=== PATIENT | female | born 1960 | race Caucasian/White ===

== ENCOUNTER → 2017-11-21 15:57 | Outpatient (REF) | payer MEDICARE, MEDICAID, SELFPAY ==
[2017-11-21 20:30] LABS: HCT 37.6 % (36.0-46.0); HGB 12.4 g/dL (12.0-15.5)
[2017-11-21 20:40] LABS: Anion Gap 9.4 mmol/L (3-11); BUN 25 mg/dL (7-18); CO2 25.6 mmol/L (21.0-32.0); CREATININE 1.81 mg/dL (0.55-1.02); Calcium 8.7 mg/dL (8.5-10.1); Chloride 103 mmol/L (98-107); Estimated GFR 28.62 (mL/min/1.73m2); Glucose 207 mg/dL (70-100); Magnesium 1.8 mg/dL (1.8-2.4); Potassium 4.6 mmol/L (3.5-5.1); Sodium 138 mmol/L (136-145); TSH (W/Ref FT4) 1.07 uIU/mL (0.358-3.74)
== END ==
LOC: NCHCN 15:57
PROVIDERS: PCP Family Medicine; Visit Provider Family Medicine
DX: N18.9 Chronic kidney disease, unspecified (principal); E03.9 Hypothyroidism, unspecified; R42 Dizziness and giddiness
CPT/HCPCS: 80048; 83735; 84443; 85014; 85018

== ENCOUNTER 2018-03-15 15:25 | Outpatient (CLI) | payer MEDICARE, MEDICAID, SELFPAY ==
[2018-03-15 17:00] LABS: CREATININE 1.71 mg/dL (0.55-1.02); Estimated GFR 30.56 (mL/min/1.73m2)
== END 2018-03-15 15:45 ==
PROVIDERS: PCP Family Medicine; Visit Provider Surgery
DX: I73.9 Peripheral vascular disease, unspecified (principal)
CPT/HCPCS: 36415; 82565

== ENCOUNTER 2018-10-10 10:24 | Outpatient (REF) | payer MEDICARE, MEDICAID, SELFPAY ==
[2018-10-10 11:20] LABS: ALT 10 U/L (12-78); AST 11 U/L (15-37); Albumin 3.6 g/dL (3.4-5.0); Alkaline Phosphatase 102 U/L (46-116); Anion Gap 8.5 mmol/L (3-11); BUN 26 mg/dL (7-18); Bilirubin, Total 0.6 mg/dL (0.2-1.0); CO2 24.5 mmol/L (21.0-32.0); CREATININE 1.83 mg/dL (0.55-1.02); Calcium 9.2 mg/dL (8.5-10.1); Chloride 108 mmol/L (98-107); Estimated GFR 28.26 (mL/min/1.73m2); Glucose 90 mg/dL (70-100); Sodium 141 mmol/L (136-145); TSH (W/Ref FT4) 15.28 uIU/mL (0.358-3.74)
[2018-10-10 11:40] LABS: FREE T4 0.77 ng/dL (0.76-1.46)
[2018-10-12 11:32] LABS: C-Peptide <0.1 ng/mL (1.1 - 4.4)
== END 2018-10-10 10:44 ==
LOC: NCHCN 10:24
PROVIDERS: PCP Family Medicine; Visit Provider Family Medicine
DX: E03.9 Hypothyroidism, unspecified (principal); E10.319 Type 1 diabetes mellitus with unspecified diabetic retinopathy without macular edema
CPT/HCPCS: 80053; 84439; 84443; 84681

== ENCOUNTER 2019-01-25 14:56 | Outpatient (CLI) | payer MEDICARE, MEDICAID, SELFPAY ==
[2019-01-25 15:37] LABS: Bilirubin Negative (Negative); Blood Negative (Negative); Clarity Clear (Clear); Glucose Negative (Negative); HCT 37.4 % (36.0-46.0); HGB 11.8 g/dL (12.0-15.5); Ketones Negative (Negative); Leukocyte Esterase Negative (Negative); Mean Corp. HGB Concentration 31.6 g/dL (32.0-36.0); Mean Corpuscular Hemoglobin 29.6 pg (27.0-33.0); Mean Corpuscular Volume 93.7 fL (80-95); Mean Platelet Volume 9.9 fL (8.0-11.0); Nitrite Negative (Negative); Platelet Count 289 x1000/uL (130-400); RBC 3.99 m/cumm (4.00-5.20); RBC Distribution Width 13.8 % (11.7-14.6); Specific Gravity 1.015 (1.005-1.025); Urobilinogen 0.2 EU/dL (Up TO 0.2); White Blood Cell Count 5.95 k/cumm (4.4-10.8)
[2019-01-25 15:46] LABS: WBC 0-2 HPF (0-5)
[2019-01-25 15:47] LABS: Bacteria Rare HPF (Negative); C & S Indicated? No; Casts Negative LPF (Negative); Crystals Negative HPF (Negative); Epithelial Cells Rare HPF (Negative); Mucus Trace (Negative); Other Cells Negative (Negative); RBC Negative (0-2)
[2019-01-25 15:50] LABS: INR 1.3 (0.9-1.1); PTT Activated 41.6 sec (21.0-31.4); Prothrombin Time 12.8 sec (9.3-11.0)
[2019-01-25 16:33] LABS: Anion Gap 8.8 mmol/L (3-11); BUN 29 mg/dL (7-18); CO2 26.2 mmol/L (21.0-32.0); CREATININE 1.88 mg/dL (0.55-1.02); Calcium 8.7 mg/dL (8.5-10.1); Chloride 104 mmol/L (98-107); FREE T4 1.05 ng/dL (0.76-1.46); Glucose 252 mg/dL (70-100); Potassium 4.8 mmol/L (3.5-5.1); Sodium 139 mmol/L (136-145); TSH 5.85 uIU/mL (0.36-3.74)
[2019-01-28 10:41] LABS: Prealbumin 23 mg/dL (20-40)
== END 2019-01-25 15:16 ==
PROVIDERS: PCP Family Medicine; Visit Provider Surgery
DX: I73.9 Peripheral vascular disease, unspecified (principal); I99.8 Other disorder of circulatory system; Z01.818 Encounter for other preprocedural examination; E03.9 Hypothyroidism, unspecified
CPT/HCPCS: 36415; 80048; 85027; 81003; 81015; 84134; 84439; 84443; 85610; 85730

== ENCOUNTER 2019-05-23 02:16 | Outpatient (CLI) | payer MEDICARE, MEDICAID, SELFPAY ==
--- NOTE | 2019-05-23 | DI.MAMMO_ITS ---
EXAM: MG MAMMO SCREENING CLINICAL HISTORY: SCREENING, Z12.39. TECHNIQUE: Bilateral full field digital CC and MLO mammographic images were obtained with 3D tomosyn thesis and utilizing computer aided detection (CAD). COMPARISON: Available for comparison. FINDINGS: Masses/Architectural Distortion: None seen. There is a stable notched nodule in the axillary tail reg ion of the right breast likely reflecting a lymph node. Microcalcifications: No suspicious pleomorphic-type are seen. Skin Thickening/Nipple Retraction: None. IMPRESSION: 1. No significant interval change with no specific features of malignancy noted. 2. Unless there is more urgent need, screening mammography is recommended, as per [employer] guidelines. ACR BI-RAD Category- 1 Negative Breast Density - Category B - Scattered areas of fibroglandular density A negative radiographic report should not delay biopsy if a dominant or clinically suspicious mass is present. Up to ten percent of cancers are not identified on mammography. A negative report may reinforce clinical impression. Adenosis and dense breasts may obscure an underlying neoplasm. False positive reports average 6 to 10%. Patient will receive a letter notifying them of these results.
== END 2019-05-23 02:36 ==
PROVIDERS: PCP Family Medicine; Visit Provider Family Medicine
DX: Z12.31 Encounter for screening mammogram for malignant neoplasm of breast (principal); R59.0 Localized enlarged lymph nodes
CPT/HCPCS: 77063; 77067

== ENCOUNTER 2019-06-13 21:49 | Outpatient (REF) | payer MEDICARE, OTHER, MEDICAID, SELFPAY | END 2019-06-13 22:09 | LOC: NCHCN 21:49 | PROVIDERS: PCP Family Medicine; Visit Provider Family Medicine | DX: L72.3 Sebaceous cyst (principal) | CPT/HCPCS: 87077; 87070; 87186; 87205 ==

== ENCOUNTER 2019-06-22 15:26 | Emergency (ER) | payer MEDICARE, OTHER, MEDICAID, SELFPAY ==
[2019-06-22 15:30] VITALS: BP 154/66; PULSE 61; RESP 18; TEMP 36.6; O2SAT 97
--- NOTE | 2019-06-22 15:49 | W.ED.GENAD ---
Discharge Plan Disposition Patient Disposition: HOME Condition: Improving Discharge Details Chief Complaint: Nk/Back Pain Clinical Impression: Pain of left sacroiliac joint Primary Care Provider: Shirley Yu V ED Provider: Paulino Hall Home Meds and New Rx's Prescriptions: New prednisone 20 mg tablet 40 mg PO DAILY 5 Days Qty: 10 RF: 0 Continued cilostazol 100 MG tablet 100 mg PO DAILY RF: 0 carvedilol 3.125 MG tablet 3.125 mg PO BID RF: 0 amlodipine 10 MG tablet 10 mg PO DAILY RF: 0 magnesium oxide 250 MG tablet 250 mg PO DAILY RF: 0 cholecalciferol (vitamin D3) [Vitamin D3] 1,000 UNIT capsule 1,000 unit PO DAILY RF: 0 humalog pump 31/10 RF: 0 losartan 50 MG tablet 50 mg PO DAILY RF: 0 aspirin 81 MG tablet,delayed release (DR/EC) 81 mg PO DAILY RF: 0 simvastatin 40 MG tablet 40 mg PO DAILY RF: 0 levothyroxine [Levoxyl] 100 MCG tablet 125 mcg PO DAILY RF: 0 citalopram 20 MG tablet 20 mg PO HS RF: 0 insulin lispro [Humalog KwikPen Insulin] 100 UNIT/1 ML insulin pen 27 unit SQ DAILY RF: 0 Pradaxa 150 MG capsule 150 mg PO BID RF: 0 Discharge Instructions Instructions: Sciatica (ED) Additional Instructions: Please follow-up with physical therapy as prescribed. Take prednisone as prescribed. You may continue the use of Tylenol and/or ibuprofen as needed for pain. May apply ice to area to reduce discomfort. Remove Lidoderm patch in 12 hours. Additional patches are available [id number]. Return if you develop motor weakness of the lower extremity, numbness, change to urination, or any other acute concern. Medical Decision Making 58-year-old female presents from home with 2 days of left low back pain. Her vital signs are unremarkable. She is tender overlying the left SI joint as well as sciatic notch. Consistent with SI joint strain versus sciatica. Will treat with a burst of prednisone, referral for physical therapy, and as well she was given IM ketorolac x1 as well as a Lidoderm patch today. Discussed with her anticipated course of resolution as well as plan for outpatient management. She is stable and appropriate to discharge to home at this time. HPI General Mode of arrival: ambulatory. Date/Time Provider Initiated Documentation: 06/22/19 15:29. Limitations to Documentation: no limitations. Information obtained by: patient. History of Present Illness 58 year old F presents to the emergency department with the chief complaint of 58-year-old female presents with left low back pain for 2 days, described as moderate, and is localized to the buttocks, left and lower extremity. Patient extremity. Patient started experiencing this day(s) and it has been constant. Rest improves symptom(s), Movement worsens symptoms . Patient notes denies weakness. Patient did receive the following treatments prior to arrival, none Related Data Home Medications Medication Instructions Recorded Confirmed Pradaxa 150 mg PO BID 08/13/12 06/22/19 aspirin 81 mg PO DAILY 08/13/12 06/22/19 citalopram 20 mg PO HS 08/13/12 06/22/19 insulin lispro [Humalog KwikPen 27 unit SQ DAILY 08/13/12 06/22/19 Insulin] levothyroxine [Levoxyl] 125 mcg PO DAILY 08/13/12 06/22/19 losartan 50 mg PO DAILY 08/13/12 06/22/19 simvastatin 40 mg PO DAILY 08/13/12 06/22/19 Humalog Pump 24/7 01/07/16 amlodipine 10 mg PO DAILY tab-cap 01/07/16 06/22/19 carvedilol 3.125 mg PO BID tab-cap 01/07/16 06/22/19 cholecalciferol (vitamin D3) 1,000 unit PO DAILY 01/07/16 06/22/19 [Vitamin D3] cilostazol 100 mg PO DAILY 01/07/16 06/22/19 magnesium oxide 250 mg PO DAILY 01/07/16 06/22/19 prednisone 40 mg PO DAILY 5 Days #10 tab 06/22/19 Previous Rx's Medication Instructions Recorded prednisone 40 mg PO DAILY 5 Days #10 tab 06/22/19 Allergies Allergy/AdvReac Type Severity Reaction Status Date / Time Sulfa (Sulfonamide Allergy Severe RENAL Unverified 06/22/19 15:36 Antibiotics) FAILURE Penicillins Allergy Unknown Unverified 06/22/19 15:36 sulfamethoxazole Allergy Unverified 06/22/19 15:36 [From Bactrim] trimethoprim [From Bactrim] Allergy Unverified 06/22/19 15:36 General Stated Complaint: Nk/Back Pain DAVID: 4 Review of Systems Narrative: No numbness or tingling, no change to urination, no weakness. No fall or injury. [facility] Medical History Benign hypertension Chronic renal insufficiency Diabetes mellitus type 1 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 Hx of malignant melanoma Hyperlipidemia Hypothyroidism Posterior cerebral circulation hemorrhagic infarction Surgical History (Updated 01/24/18 @ 14:34 by [employer] [place]) Abdominal hysterectomy (~2001) Carotid endarterectomy bilateral. excision of melanoma on arm. Oophrectomy, Both Stent placement LE for intermittent claudication Trigger Finger release (03/29/11) LEFT THUMB Social History Smoking/Tobacco Use Status: Former Tobacco Use Drug use: Never Do you feel safe at home: Yes Exam Narrative Exam Narrative: GEN: awake, alert, oriented 3. Pleasant, well groomed, interactive. HEAD: Normocephalic, atraumatic ENT: Mucous membranes moist, oropharynx unremarkable, External ear exam unremarkable EYES: PERRL, EOMI NECK: Full ROM, no NEREYDA, no menigismus CHEST/RESP: Nontender, clear to auscultation bilateral, no wheeze/rhonchi/rales CARDIOVASCULAR: RRR, no murmur, rub miles. 2+ Rad pulse bilateral ABDOMEN: Soft, nontender, no mass. +Bowel sounds EXT: Full ROM, no edema, no rash. Motor is 5 out of 5 throughout, sensation intact throughout including saddle distribution. Back: Tender at left SI joint and slightly so at left sciatic notch. Neuro: Grossly normal neurologic exam, conversant, interactive. Psych: Speech fluent, thoughts congruent, affect normal Course Vital Signs Vital signs: Vital Signs Temperature 36.6 C 06/22/19 15:30 Pulse 61 06/22/19 15:30 Respiratory Rate 18 06/22/19 15:30 Blood Pressure 154/66 H 06/22/19 15:30 Pulse Oximetry 97 06/22/19 15:30 Temperature 36.6 C 06/22/19 15:30 Temperature Source Skin 06/22/19 15:30 Pulse 61 06/22/19 15:30 Respiratory Rate 18 06/22/19 15:30 Respiratory Effort Non-Labored 06/22/19 15:33 Blood Pressure 154/66 H 03/14/20 15:30 Blood Pressure Position Sitting 06/22/19 15:30 Pulse Oximetry 97 06/22/19 15:30 Oxygen Delivery Method Room Air 06/22/19 15:30 Oxygen Flow Rate 0 06/22/19 15:30 Pain Level 10 06/22/19 15:33
[2019-06-22] MEDS: Ketorolac 15 MG/ML VIAL IM (16:04)
[2019-06-22] MEDS: predniSONE 40 MG, predniSONE 10 MG 50 MG PO (16:05)
[2019-06-22] MEDS: Lidocaine 5% Patch 1 PATCH TP (16:05)
== END 2019-06-22 16:12 | disposition home or self-care (01) ==
PROVIDERS: Emergency Provider Emergency Medicine; PCP Family Medicine
DX: M54.32 Sciatica, left side (principal); I12.9 Hypertensive chronic kidney disease with stage 1 through stage 4 chronic kidney disease, or unspecified chronic kidney disease; N18.9 Chronic kidney disease, unspecified; E10.22 Type 1 diabetes mellitus with diabetic chronic kidney disease
CPT/HCPCS: 96372; 99284; 99283; J1885; J7512

== ENCOUNTER 2019-06-25 14:29 | Outpatient (CLI) | payer MEDICARE, OTHER, MEDICAID, SELFPAY ==
--- NOTE | 2019-06-25 14:47 | DI.RAD_ITS ---
EXAM: XR LUMBAR SPINE COMPLETE CLINICAL HISTORY: BACK PAIN, LUMBAR W/ RADICULOPATHY M54.16. TECHNIQUE: 2D digital imaging was performed. COMPARISON: No exams were available for comparison FINDINGS: BONES: No fracture or destructive lesion. Vertebral bodies are unremarkable. Mild degenerative change s of the facets at L5-S1 are noted. DISKS: Intervertebral disc spaces are maintained. Small endplate osteophytes are seen at multiple lev els of the lumbar spine. ALIGNMENT: Lumbar spinal alignment is within normal limits. No spondylolysis or spondylolisthesis is seen. SOFT TISSUE: Atherosclerosis is present. There is a stent in the left common iliac artery. IMPRESSION: Mild degenerative changes in the lumbar spine. DATA REPOSITORY: RADIATION DOSE DELIVERED:
--- NOTE | 2019-06-25 14:47 | DI.RAD_ITS ---
EXAM: XR HIP LT COMPLETE AND AP PELVIS CLINICAL HISTORY: BACK PAIN M54.16. TECHNIQUE: 2D digital imaging was performed. COMPARISON: No exams were available for comparison FINDINGS: BONES: No acute fracture is present. No bony destructive lesion is seen. JOINTS: No dislocation present. No significant degenerative changes. SOFT TISSUE: A left common iliac stent is present. The proximal end of a vascular stent in the right groin is noted. Atherosclerosis. IMPRESSION: Unremarkable radiographs of the left hip. Unremarkable radiographs of the pelvis DATA REPOSITORY: RADIATION DOSE DELIVERED:
--- NOTE | 2019-06-25 14:48 | DI.RAD_ITS ---
EXAM: XR THORACIC SPINE COMPLETE CLINICAL HISTORY: BACK PAIN. TECHNIQUE: 2D digital imaging was performed. COMPARISON: No exams were available for comparison FINDINGS: BONES: There is no fracture or destructive lesion. The vertebral bodies and posterior elements are un remarkable. DISKS:There is a mild right convex scoliosis of the thoracic spine. Disc space narrowing and endplat e osteophytes are seen at several levels of the thoracic spine. SOFT TISSUE: Visualized lungs are clear. IMPRESSION: Degenerative changes in the thoracic spine. DATA REPOSITORY: RADIATION DOSE DELIVERED:
== END 2019-06-25 14:49 ==
PROVIDERS: PCP Family Medicine; Visit Provider Family Medicine
DX: M54.6 Pain in thoracic spine (principal); M47.814 Spondylosis without myelopathy or radiculopathy, thoracic region; M54.16 Radiculopathy, lumbar region; M47.817 Spondylosis without myelopathy or radiculopathy, lumbosacral region; M25.552 Pain in left hip; Z95.820 Peripheral vascular angioplasty status with implants and grafts
CPT/HCPCS: 72072; 72110; 73502

== ENCOUNTER 2019-06-25 14:31 | Outpatient (REF) | payer MEDICARE, OTHER, MEDICAID, SELFPAY ==
[2019-06-25 19:25] LABS: HCT 38.8 % (36.0-46.0); HGB 12.4 g/dL (12.0-15.5); Mean Corpuscular Hemoglobin 28.2 pg (27.0-33.0); Mean Corpuscular Volume 88.4 fL (80-95); Mean Platelet Volume 11.2 fL (8.0-11.0); Platelet Count 273 x1000/uL (130-400); RBC 4.39 m/cumm (4.00-5.20); RBC Distribution Width 14.2 % (11.7-14.6); White Blood Cell Count 9.08 k/cumm (4.4-10.8)
[2019-06-25 20:08] LABS: ALT 13 U/L (14-59); AST 13 U/L (15-37); Albumin 3.4 g/dL (3.4-5.0); Alkaline Phosphatase 100 U/L (46-116); Anion Gap 9.1 mmol/L (3-11); BUN 31 mg/dL (7-18); Bilirubin, Total 0.5 mg/dL (0.2-1.0); C-Reactive Protein 0.16 mg/dL (0.0-0.3); CO2 27.9 mmol/L (21.0-32.0); CREATININE 1.67 mg/dL (0.55-1.02); Calcium 8.5 mg/dL (8.5-10.1); Chloride 106 mmol/L (98-107); Estimated GFR 31.29 (mL/min/1.73m2); Glucose 184 mg/dL (74-106); Potassium 4.4 mmol/L (3.5-5.1); Sodium 143 mmol/L (136-145); TSH (W/Ref FT4) 13.28 uIU/mL (0.36-3.74); Total Protein 6.9 g/dL (6.4-8.2)
[2019-06-25 20:20] LABS: ESR 25 mm/hr (0-30)
[2019-06-25 20:33] LABS: FREE T4 0.78 ng/dL (0.76-1.46)
== END 2019-06-25 14:51 ==
LOC: NCHCN 14:31
PROVIDERS: PCP Family Medicine; Visit Provider Family Medicine
DX: E03.9 Hypothyroidism, unspecified (principal); E10.319 Type 1 diabetes mellitus with unspecified diabetic retinopathy without macular edema; N18.9 Chronic kidney disease, unspecified; M54.16 Radiculopathy, lumbar region; D64.9 Anemia, unspecified; M25.552 Pain in left hip
CPT/HCPCS: 80053; 85027; 85652; 84439; 84443; 86140

== ENCOUNTER 2019-07-05 03:36 | Outpatient (CLI) | payer MEDICARE, OTHER, MEDICAID, SELFPAY ==
--- NOTE | 2019-07-05 08:55 | DI.MRI_ITS ---
EXAM: MR LUMBAR SPINE WO CLINICAL HISTORY: BACK PAIN, LUMBAR WITH RADICULOPATHY, M54.16. TECHNIQUE: Multiplanar multisequence MRI of the Lumbar spine was performed. COMPARISON: No exams were available for comparison FINDINGS: Bones: The last intervertebral disc space is designated the L5/S1 level for the numbering purpose of this examination. The vertebral body heights are well maintained. Alignment is satisfactory. The si gnal characteristics are unremarkable. Cord: The conus tip ends at the L1 level. It is of normal size and signal intensity. T12-L1: No disc herniations or bulges are present. No significant central spinal canal or neural for aminal stenosis is present. L1-2: No disc herniations or bulges are present. No significant central spinal canal or neural fora homer stenosis is present. L2-3: No disc herniations or bulges are present. No significant central spinal canal or neural forami nal stenosis is present. L3-4: There is a diffuse disc bulge. There also appears to be a herniation into the left neural for amen which is large. There is marked compression of the exiting L3 nerve root. There are degenerati ve changes of the facets. These all contribute to cause mild narrowing of the central spinal canal. No significant right neural foraminal stenosis is present. L4-5: There is an eccentric disc herniation to the left with extension into the left neural foramen. It causes left lateral recess stenosis compressing the left L5 nerve root. There are degenerative changes of the facet joints. There is hfhj-fj-vchuwqyo narrowing of the central spinal canal. There is [id number] narrowing of the left neural foramen. No significant right neural foraminal coral nosis is present. L5-S1: No disc herniations or bulges are present. No central spinal canal or neural foraminal stenos is is present. Soft tissues: The visualized SI joints and sacrum are well maintained. The paraspinal soft tissues ar e unremarkable. IMPRESSION: 1. Large focal lesion in the left neural foramen at L 3 4 which is isointense to the disc material. There is marked compression of the exiting L3 nerve root. This appears to represent a disc herniatio n. Other epidural masses cannot be entirely excluded. If further imaging is warranted, a postcontra st MRI examination may be obtained. 2. At L4-L5, eccentric disc herniation to the left with extension into the left neural foramen is not ed. It causes left lateral recess stenosis compressing the left L5 nerve root. 3. Multilevel degenerative changes in the lumbar spine causing central spinal canal and neural forami nal stenosis as described above. DATA REPOSITORY:
== END 2019-07-05 03:56 ==
PROVIDERS: PCP Family Medicine; Visit Provider Family Medicine
DX: M54.16 Radiculopathy, lumbar region (principal); M51.16 Intervertebral disc disorders with radiculopathy, lumbar region
CPT/HCPCS: 72148

== ENCOUNTER 2019-07-15 14:32 | Outpatient (REF) | payer MEDICARE, OTHER, MEDICAID, SELFPAY ==
[2019-07-15 20:04] LABS: Anion Gap 8.4 mmol/L (3-11); BUN 34 mg/dL (7-18); CO2 24.6 mmol/L (21.0-32.0); CREATININE 1.79 mg/dL (0.55-1.02); Calcium 8.6 mg/dL (8.5-10.1); Chloride 108 mmol/L (98-107); Estimated GFR 28.89 (mL/min/1.73m2); Glucose 177 mg/dL (74-106); Potassium 5.1 mmol/L (3.5-5.1); Sodium 141 mmol/L (136-145)
== END 2019-07-15 14:52 ==
LOC: NCHCN 14:32
PROVIDERS: PCP Family Medicine; Visit Provider Family Medicine
DX: N18.9 Chronic kidney disease, unspecified (principal)
CPT/HCPCS: 80048

== ENCOUNTER 2019-09-05 11:14 | Outpatient (CLI) | payer MEDICARE, OTHER, MEDICAID, SELFPAY ==
[2019-09-05 15:24] LABS: COMMENT (LAB VIEW ONLY) 133.49 mg/dL
[2019-09-05 15:33] LABS: Albumin 3.5 g/dL (3.4-5.0); Anion Gap 8.5 mmol/L (3-11); BUN 27 mg/dL (7-18); CO2 24.5 mmol/L (21.0-32.0); CREATININE 1.92 mg/dL (0.55-1.02); Calcium 8.6 mg/dL (8.5-10.1); Chloride 104 mmol/L (98-107); Estimated GFR 26.64 (mL/min/1.73m2); Glucose 243 mg/dL (74-106); PHOSPHORUS 4.9 mg/dL (2.6-4.7); Sodium 137 mmol/L (136-145); Uric Acid 6.1 mg/dL (2.6-6.0)
[2019-09-05 15:41] LABS: Vitamin D 25 Total 16.8 ng/ml (30-100)
[2019-09-06 12:38] LABS: Parathyroid Hormone,Intact 134 pg/mL (19-88)
== END 2019-09-05 11:34 ==
PROVIDERS: PCP Family Medicine; Visit Provider Internal Medicine
DX: N18.3 Chronic kidney disease, stage 3 (moderate) (principal)
CPT/HCPCS: 80048; 82306; 82040; 82043; 82570; 83970; 84100; 84550

== ENCOUNTER 2019-10-14 11:21 | Outpatient (REF) | payer MEDICARE, OTHER, MEDICAID, SELFPAY ==
[2019-10-14 19:35] LABS: HCT 33.2 % (36.0-46.0); HGB 10.2 g/dL (12.0-15.5); Mean Corp. HGB Concentration 30.7 g/dL (32.0-36.0); Mean Corpuscular Hemoglobin 27.2 pg (27.0-33.0); Mean Corpuscular Volume 88.5 fL (80-95); Mean Platelet Volume 10.4 fL (8.0-11.0); Platelet Count 297 x1000/uL (130-400); RBC 3.75 m/cumm (4.00-5.20); RBC Distribution Width 14.9 % (11.7-14.6); White Blood Cell Count 5.79 k/cumm (4.4-10.8)
[2019-10-14 19:46] LABS: Anion Gap 9.9 mmol/L (3-11); BUN 23 mg/dL (7-18); CO2 24.1 mmol/L (21.0-32.0); CREATININE 1.62 mg/dL (0.55-1.02); Calcium 8.4 mg/dL (8.5-10.1); Chloride 103 mmol/L (98-107); Estimated GFR 32.41 (mL/min/1.73m2); Glucose 205 mg/dL (74-106); PHOSPHORUS 4.6 mg/dL (2.6-4.7); Potassium 5.2 mmol/L (3.5-5.1); Sodium 137 mmol/L (136-145)
== END 2019-10-14 11:41 ==
LOC: NCHCN 11:21
PROVIDERS: PCP Family Medicine; Visit Provider Family Medicine
DX: N18.9 Chronic kidney disease, unspecified (principal)
CPT/HCPCS: 80048; 85027; 83735; 84100

== ENCOUNTER 2019-10-15 02:31 | Outpatient (CLI) | payer MEDICARE, OTHER, MEDICAID, SELFPAY ==
[2019-10-16 10:56] LABS: Parathyroid Hormone,Intact 146 pg/mL (19-88)
[2019-10-21 13:42] LABS: Erythropoietin 25.9 mIU/mL (2.6 - 18.5)
== END 2019-10-15 02:51 ==
PROVIDERS: PCP Family Medicine; Visit Provider Family Medicine
DX: N18.9 Chronic kidney disease, unspecified (principal); E03.9 Hypothyroidism, unspecified; D64.9 Anemia, unspecified
CPT/HCPCS: 36415; 82668; 83970

== ENCOUNTER 2020-04-07 23:02 | Outpatient (REF) | payer MEDICARE, OTHER, MEDICAID, SELFPAY ==
[2020-04-07 19:28] LABS: HCT 32.3 % (36.0-46.0)
[2020-04-07 20:22] LABS: Chloride 103 mmol/L (98-107); Potassium 5.6 mmol/L (3.5-5.1)
[2020-04-07 20:42] LABS: ALT 20 U/L (14-59); AST 24 U/L (15-37); Albumin 3.7 g/dL (3.4-5.0); Alkaline Phosphatase 123 U/L (46-116); Anion Gap 6.7 mmol/L (3-11); BUN 26 mg/dL (7-18); Bilirubin, Total 0.5 mg/dL (0.2-1.0); CO2 27.3 mmol/L (21.0-32.0); CREATININE 1.94 mg/dL (0.55-1.02); Calcium 8.7 mg/dL (8.5-10.1); Calculated LDL 78 mg/dL (<100); Cholesterol 194 mg/dL (<200); Estimated GFR 26.24 (mL/min/1.73m2); Glucose 198 mg/dL (74-106); HDL Cholesterol 104 mg/dL (40-60); Sodium 137 mmol/L (136-145); TSH (W/Ref FT4) 2.78 uIU/mL (0.36-3.74); Total Protein 7.2 g/dL (6.4-8.2); Triglyceride 63 mg/dL (<150)
[2020-04-08 12:44] LABS: Iron 26 ug/dL (50-170)
[2020-04-08 13:11] LABS: Ferritin 21 ng/mL (8-252); Vitamin B12 347 pg/mL (193-986)
== END 2020-04-07 23:22 ==
LOC: NCHCN 23:02
PROVIDERS: PCP Family Medicine; Visit Provider Family Medicine
DX: E87.5 Hyperkalemia (principal); Z00.00 Encounter for general adult medical examination without abnormal findings; D64.9 Anemia, unspecified; N18.9 Chronic kidney disease, unspecified; E03.9 Hypothyroidism, unspecified; I12.9 Hypertensive chronic kidney disease with stage 1 through stage 4 chronic kidney disease, or unspecified chronic kidney disease
CPT/HCPCS: 80053; 80061; 82607; 82728; 83540; 83735; 84100; 84443; 85014; 85018

== ENCOUNTER 2020-09-12 18:49 | Emergency (ER) | payer OTHER, MEDICAID, SELFPAY ==
[2020-09-12 19:04] VITALS: BP 132/47; PULSE 67; RESP 16; TEMP 36.8; O2SAT 95
--- NOTE | 2020-09-12 19:15 | RT.EKG_ITS ---
APPROVED REPORT Exam: Resting ECG Reason for Exam: dizziness Patient Location: E HR:64 bpm ECG Measurements Heart Rate 64 AXIS WY 191 P 58 QRSd 92 QRS -7 QT 431 T 2 QTc 446 Conclusion Sinus rhythm...normal P axis, V-rate 60- 99 Physician: No stemi, minimal flattening on V4-6, slightly changed from ekg from 2007. inverted T wave in Lead 3
[2020-09-12 19:45] LABS: Abs Immature Grans 0.03 10^3/uL (0.0-0.06); Absolute Basophil Count 0.04 10^3/uL (0.0-0.2); Absolute Eosinophil Count 0.32 10^3/uL (0.0-0.7); Absolute Lymphocyte Count 1.46 10^3/uL (1.2-3.4); Absolute Monocyte Count 0.57 10^3/uL (0.1-0.8); Absolute Neutrophil Count 4.69 10^3/uL (1.2-6.7); Basophils % 0.6; Eosinophils % 4.5; HCT 36.7 % (36.0-46.0); Immature Grans % 0.4; Lymphocytes % 20.5; MCH 32.5 pg (27.0-33.0); MCHC 32.7 % (32.0-36.0); MCV 99.5 fL (80-95); MPV 10.5 fL (8.0-11.0); Nucleated RBC 0 %; Platelet Count 190 10^3/uL (130-400); RBC 3.69 10^6/uL (3.93-5.22); RDW 14.2 % (11.7-14.6); RDW-SD 52.2 fL; WBC 7.11 10^3/uL (4.4-10.8)
--- NOTE | 2020-09-12 19:54 | W.ED.GENAD ---
Discharge Plan Disposition Patient Disposition: HOME Condition: Stable Discharge Details Clinical Impression: Concussion Primary Care Provider: Shirley Yu V ED Provider: Hailey Rubio Home Meds and New Rx's Prescriptions: No Action cilostazol 100 MG tablet 100 mg PO DAILY RF: 0 carvedilol 3.125 MG tablet 3.125 mg PO BID RF: 0 amlodipine 10 MG tablet 10 mg PO DAILY RF: 0 magnesium oxide 250 MG tablet 250 mg PO DAILY RF: 0 cholecalciferol (vitamin D3) [Vitamin D3] 1,000 UNIT capsule 1,000 unit PO DAILY RF: 0 humalog pump 31/10 RF: 0 losartan 50 MG tablet 50 mg PO DAILY RF: 0 aspirin 81 MG tablet,delayed release (DR/EC) 81 mg PO DAILY RF: 0 simvastatin 40 MG tablet 40 mg PO DAILY RF: 0 levothyroxine [Levoxyl] 100 MCG tablet 125 mcg PO DAILY RF: 0 citalopram 20 MG tablet 20 mg PO HS RF: 0 insulin lispro [Humalog KwikPen Insulin] 100 UNIT/1 ML insulin pen 27 unit SQ DAILY RF: 0 Pradaxa 150 MG capsule 150 mg PO BID RF: 0 Discharge Instructions Instructions: Concussion (ED) Additional Instructions: Please have your creatinine level rechecked by her primary care physician, it sounds like this level have been normal for you in the past but will need close outpatient reevaluation I suspect you have a concussion, this means that you should not be operating your vehicle until you are cleared by your doctor and your symptoms have resolved completely Try to limit your telephone and screen time as this can delay healing Do not climb ladders or attempt to operate machinery until your symptoms have resolved completely Please return with uncontrolled vomiting, worsening headache, or with any new or progressing symptoms Please have your doctor review your EKG and should he develop chest pain or shortness of breath, you must return for reevaluation Concussion can take several weeks to several months to resolve, you may need close outpatient follow-up and evaluation, prior PCP on Monday Discharge Data Discharge Date/Time-TO BE ENTERED AT DEPARTURE: 09/12/20 22:20 Medical Decision Making Head and cervical spine do not show pathology, ambulatory with steady gait, creatinine is elevated 2.7, states her baseline is 3, she does have a history of renal insufficiency and this was not grossly changed from prior Discharged home in stable condition with stable vital, I urged to follow-up with primary care physician regarding creatinine troponin negative, EKG does have changes but the Priti Was in 2007, she had symptoms for 4 days, she has no chest pain or shortness of breath Do not see need for repeat EKG or troponin as patient is not having any anginal symptoms Given low threshold to return with new or worsening complaints will follow up with primary care physician on Monday Precautions for concussion discussed including abstinence from operating machinery Discharge home in care of Return precautions discussed and patient understanding Virtual radiology CT interpretation reviewed Differential Diagnosis Differential Diagnosis: Concussion, subdural hematoma, cervical spine fracture, electrolyte abnorma Medical Records Medical records reviewed: Yes I reviewed the patient's medical records. Lab Data Lab results reviewed: Yes I reviewed the patient's lab results. HPI General Mode of arrival: ambulatory. Date/Time Provider Initiated Documentation: 09/12/20 19:14. Limitations to Documentation: no limitations. Information obtained by: patient. HPI Narrative: This 59-year-old female presents with report of dizziness, nausea, headache, neck pain, feeling like she is drunk . She states that she fell out of a hammock and had whiplash injury to her neck 4 days prior to arrival. She denies no loss of conscious. She states she has felt confused and lightheaded with some intermittent dizziness since that time. She does take Pradaxa. She denies any additional injuries. She was not evaluated on the day of injury. She denies any vomiting. She denies any vision change. She denies any additional complaints at this time. She states her symptoms are exacerbated when she stands up too quickly . Related Data Home Medications Medication Instructions Recorded Confirmed Pradaxa 150 mg PO BID 08/13/12 09/12/20 aspirin 81 mg PO DAILY 08/13/12 09/12/20 citalopram 20 mg PO HS 08/13/12 09/12/20 insulin lispro [Humalog KwikPen 27 unit SQ DAILY 08/13/12 06/22/19 Insulin] levothyroxine [Levoxyl] 125 mcg PO DAILY 08/13/12 09/12/20 losartan 50 mg PO DAILY 08/13/12 09/12/20 simvastatin 40 mg PO DAILY 08/13/12 09/12/20 Humalog Pump 24/7 01/07/16 amlodipine 10 mg PO DAILY tab-cap 01/07/16 09/12/20 carvedilol 3.125 mg PO BID tab-cap 01/07/16 09/12/20 cholecalciferol (vitamin D3) 1,000 unit PO DAILY 01/07/16 09/12/20 [Vitamin D3] cilostazol 100 mg PO DAILY 01/07/16 09/12/20 magnesium oxide 250 mg PO DAILY 01/07/16 09/12/20 Allergies Allergy/AdvReac Type Severity Reaction Status Date / Time Sulfa (Sulfonamide Allergy Severe RENAL Unverified 09/12/20 19:12 Antibiotics) FAILURE Penicillins Allergy Unknown Unverified 09/12/20 19:12 sulfamethoxazole Allergy Unverified 09/12/20 19:12 [From Bactrim] trimethoprim [From Bactrim] Allergy Unverified 09/12/20 19:12 General Stated Complaint: HeadInjury DAVID: 3 Review of Systems Narrative: Review of systems obtained x7 aside from where indicated in HPI PFS Medical History (Updated 09/12/20 @ 22:07 by GENTRY Harper) Benign hypertension Chronic renal insufficiency Diabetes mellitus type 1 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 Hx of malignant melanoma Hyperlipidemia Hypothyroidism Posterior cerebral circulation hemorrhagic infarction Surgical History (Updated 01/24/18 @ 14:34 by [facility] [place]) Abdominal hysterectomy (~2001) Carotid endarterectomy bilateral. excision of melanoma on arm. Oophrectomy, Both Stent placement LE for intermittent claudication Trigger Finger release (03/29/11) LEFT THUMB Social History Smoking/Tobacco Use Status: Former Tobacco Use Smoking risk assessment performed?: Yes Drug use: Never Do you feel safe at home: Yes Exam Const General: cooperative and no acute distress HENMT Other: Hematoma to the occipital region, no hemotympanum, no crepitus, Eyes Pupils: PERRL EOM: EOM intact bilaterally Neck Other: No midline tenderness, carotid endarterectomy scars noted bilaterally, bruits bilaterally mild, no midline posterior neck pain, no crepitus Chest Other: No crepitus to chest wall or palpable tenderness or deformity Resp Effort & Inspection: normal respiratory effort Auscultation: clear to auscultation bilaterally Cardio Rate: regular rate Rhythm: regular rhythm GI Other: No palpable abdominal tenderness or CVA tenderness Back/Spine/Pelvis Other: No tenderness to the thoracic or lumbar spine Skin General skin exam: no rashes or lesions noted Neuro General: patient alert and patient oriented x3 Cranial Nerves: CN's II-XI intact bilaterally and PERRL Cognition: normal cognition Speech: speech abnormal and speech normal Motor: strength 5/5 throughout and no pronator drift Sensory Exam: no sensory deficits noted Coordination: [id number] test normal and [id number] test normal Other: Strength and sensation intact distally, no pronator drift Extrem Other: Distal pulses intact in bilateral upper and lower extremities Course Vital Signs Vital signs: Vital Signs Temperature 36.8 C 09/12/20 19:04 Pulse 67 09/12/20 19:04 Respiratory Rate 16 09/12/20 19:04 Blood Pressure 132/47 L 09/12/20 19:04 Pulse Oximetry 95 09/12/20 19:04 Temperature 36.8 C 09/12/20 19:04 Temperature Source Temporal Artery Scan 09/12/20 19:04 Pulse 67 09/12/20 19:04 Respiratory Rate 16 09/12/20 19:04 Blood Pressure 132/47 L 09/12/20 19:04 Blood Pressure Position Sitting 09/12/20 19:04 Pulse Oximetry 95 09/12/20 19:04 Oxygen Delivery Method Room Air 09/12/20 19:04 Oxygen Flow Rate 0 09/12/20 19:04 Pain Level 4 09/12/20 19:04 Comment 09/12/20 19:04 Lab/Test Results Lab/Test Results: Laboratory Tests Range/Units 09/12/20 19:35 WBC (4.4-10.8) 10^3/uL 7.11 RBC (3.93-5.22) 10^6/uL 3.69 L Hgb (11.2-15.7) g/dL 12.0 Hct (36.0-46.0) % 36.7 MCV (80-95) fL 99.5 H MCH (27.0-33.0) pg 32.5 MCHC (32.0-36.0) % 32.7 RDW (11.7-14.6) % 14.2 Plt Count (130-400) 10^3/uL 190 MPV (8.0-11.0) fL 10.5 Immature Gran % 0.4 Neutrophils % 66.0 Lymphocytes % 20.5 Monocytes % 8.0 Eosinophils % 4.5 Basophils % 0.6 Nucleated RBC % % 0 Absolute Neutrophils (1.2-6.7) 10^3/uL 4.69 Absolute Lymphocytes (1.2-3.4) 10^3/uL 1.46 Absolute Monocytes (0.1-0.8) 10^3/uL 0.57 Absolute Eosinophils (0.0-0.7) 10^3/uL 0.32 Absolute Basophils (0.0-0.2) 10^3/uL 0.04
[2020-09-12 20:15] LABS: ALT 13 U/L (14-59); AST 15 U/L (15-37); Albumin 3.2 g/dL (3.4-5.0); Alkaline Phosphatase 106 U/L (46-116); Anion Gap 6.1 mmol/L (3-11); BUN 37 mg/dL (7-18); Bilirubin, Total 1.1 mg/dL (0.2-1.0); CO2 28.9 mmol/L (21.0-32.0); CREATININE 2.7 mg/dL (0.55-1.02); Calcium 8.6 mg/dL (8.5-10.1); Chloride 103 mmol/L (98-107); Estimated GFR 17.92 (mL/min/1.73m2); Glucose 189 mg/dL (74-106); Potassium 4.6 mmol/L (3.5-5.1); Sodium 138 mmol/L (136-145); Total Protein 7.4 g/dL (6.4-8.2)
[2020-09-12 20:23] LABS: Troponin I < 0.05 ng/mL (<0.06)
--- NOTE | 2020-09-12 20:30 | DI.CT_ITS ---
Exam(s) CT HEAD CERVICAL SPINE WO EXAM: CT HEAD CERVICAL SPINE WO COMPARISON: No exams were available for comparison FINDINGS: CT examination of the cervical spine was performed without contrast administration. There are moderate degenerative changes of the midcervical spine. There is a slight cervical kyphosi s. There is no evidence of acute cervical spine fracture or dislocation. Intervertebral disc spaces are well maintained. Tracheolaryngeal structures appear intact. No cervical mass or adenopathy. Noncontrast cranial CT was performed. Ventricular system is normal in appearance. No evidence of acute intracranial hemorrhage, mass effect, or midline shift. No calvarial fracture. The orbital and temporal bone structures appear intact. Visualized mastoid air cells and paranasal sinuses appear clear except for a few opacified mastoid ai r cells on the left which may represent a mild serous mastoiditis.. IMPRESSION: No evidence of acute cervical spine injury. No evidence of acute intracranial injury. RADIATION DOSE DELIVERED: 1,577.93mGy.cm Total DLP 1,577.93mGy.cm Total DLP DATA REPOSITORY: All CT scans at this facility are submitted to the National Radiology Data Registry (NRDR) Dose Index Registry (DIR) with the [employer] (ACR). RADIATION OPTIMIZATION: All CT scans at this facility use at least one of these dose optimization te chniques: automated exposure control; mA and/or kV adjustment per patient size (includes targeted exa ms where dose is matched to clinical indication); or iterative reconstruction.
[2020-09-12 21:15] VITALS: BP 146/49; PULSE 63; RESP 15; O2SAT 92
[2020-09-12 21:30] VITALS: BP 164/53; PULSE 63; RESP 16; O2SAT 92
[2020-09-12 21:45] VITALS: BP 156/45; PULSE 63; RESP 19; O2SAT 92
--- NOTE | 2020-09-12 21:58 | DI.VRAD_ITS ---
PROCEDURE INFORMATION: Exam: CT Head Without Contrast Exam date and time: 09/12/2020 8:45 PM Age: 59 years old Clinical indication: Injury or trauma; Blunt trauma (contusions or hematomas); Patient HX: Fall, hi, dizziness, on pradaxa TECHNIQUE: Imaging protocol: Computed tomography of the head without contrast. COMPARISON: No relevant prior studies available. FINDINGS: The ventricles, sulci and basilar cisterns are normal for the patient's stated age. There is no evidence for acute infarct. There is a small hypodense area in the left frontal region thought to represent an old infarct. There is no evidence for mass. There is no hemorrhage. There are no extra-axial fluid collections. There is no midline shift. The skull is intact. The visualized paranasal sinuses are well aerated. There is atherosclerotic change of the cavernous carotid arteries. IMPRESSION: No evidence for acute intracranial injury. PROCEDURE INFORMATION: Exam: CT Cervical Spine Without Contrast Exam date and time: 09/12/2020 8:45 PM Age: 59 years old Clinical indication: Injury or trauma; Blunt trauma (contusions or hematomas); Patient HX: Fall, hi, dizziness, on pradaxa TECHNIQUE: Imaging protocol: Computed tomography images of the cervical spine without contrast. COMPARISON: No relevant prior studies available. FINDINGS: The vertebral bodies are normally aligned. There is no evidence of fracture or subluxation. The vertebral bodies are of normal height. There is disc space narrowing at C5-C6 and C6-C7. The prevertebral soft tissues and the predental space are unremarkable. There are degenerative changes of the facet joints and uncovertebral joints. There is no significant central stenosis. There is no evidence for epidural hematoma. The lung apices are clear. Carotid calcifications are noted. IMPRESSION: There is no evidence of fracture or subluxation. Dictated and Authenticated by: Geo Lira MD. Ordering:ALYSE Hart MD
[2020-09-12 22:23] VITALS: BP 160/55; PULSE 64; RESP 20; O2SAT 92
== END 2020-09-12 22:20 | disposition home or self-care (01) ==
PROVIDERS: Emergency Provider Physician Assistant; PCP Family Medicine
DX: S06.0X0A Concussion without loss of consciousness, initial encounter (principal); S13.4XXA Sprain of ligaments of cervical spine, initial encounter; W08.XXXA Fall from other furniture, initial encounter; R42 Dizziness and giddiness
CPT/HCPCS: 36415; 80053; 93005; 99285; 70450; 72125; 84484; 85025; 93010; 99284

== ENCOUNTER 2020-10-20 07:56 | Outpatient (CLI) | payer OTHER, MEDICAID, SELFPAY ==
[2020-10-20 15:44] LABS: Anion Gap 5.6 mmol/L (3-11); BUN 17 mg/dL (7-18); CO2 29.4 mmol/L (21.0-32.0); CREATININE 1.9 mg/dL (0.55-1.02); Calcium 8.9 mg/dL (8.5-10.1); Chloride 102 mmol/L (98-107); Estimated GFR 26.87 (mL/min/1.73m2); Glucose 206 mg/dL (74-106); Potassium 4.9 mmol/L (3.5-5.1); Sodium 137 mmol/L (136-145)
== END 2020-10-20 07:57 | disposition home or self-care (01) ==
PROVIDERS: PCP Family Medicine; Visit Provider Obstetrics & Gynecology Obstetrics
DX: E87.5 Hyperkalemia (principal)
CPT/HCPCS: 36415; 80048

== ENCOUNTER → 2021-01-21 11:00 | Outpatient (BNVA) | payer OTHER, SELFPAY | PROVIDERS: PCP Family Medicine; Referring Provider Surgery; Visit Provider Student in an Organized Health Care Education/Training Program | DX: M67.432 Ganglion, left wrist (principal) | CPT/HCPCS: 99213 ==

== ENCOUNTER 2021-02-09 02:30 | Outpatient (CLI) | payer OTHER, MEDICAID, SELFPAY ==
[2021-02-09 12:56] LABS: Hemoglobin A1C 7.7 % (<5.7)
== END 2021-02-09 02:31 | disposition home or self-care (01) ==
LOC: LBO 02:30
PROVIDERS: PCP Family Medicine; Visit Provider Family Medicine
DX: E10.319 Type 1 diabetes mellitus with unspecified diabetic retinopathy without macular edema (principal)
CPT/HCPCS: 36415; 83036

== ENCOUNTER → 2021-02-22 11:24 | Outpatient (BNVA) | payer OTHER, MEDICAID, SELFPAY | PROVIDERS: PCP Family Medicine; Referring Provider Family Medicine; Visit Provider Surgery | DX: L72.3 Sebaceous cyst (principal); M67.432 Ganglion, left wrist; Z86.14 Personal history of Methicillin resistant Staphylococcus aureus infection; I73.9 Peripheral vascular disease, unspecified; L08.9 Local infection of the skin and subcutaneous tissue, unspecified; E10.9 Type 1 diabetes mellitus without complications; I10 Essential (primary) hypertension; Z87.891 Personal history of nicotine dependence | CPT/HCPCS: 99202; 99214 ==

== ENCOUNTER 2021-04-08 19:25 | Outpatient (REF) | payer OTHER, MEDICAID, SELFPAY ==
[2021-04-09 15:52] LABS: COVID-19 RT-PCR UVMMC Result Negative (Negative)
== END 2021-04-08 19:26 | disposition home or self-care (01) ==
LOC: NCHCN 19:25
PROVIDERS: PCP Family Medicine; Visit Provider Family Medicine
DX: Z20.822 Contact with and (suspected) exposure to COVID-19 (principal)
CPT/HCPCS: U0003; U0005

== ENCOUNTER 2021-04-27 17:01 | Outpatient (REF) | payer OTHER, MEDICAID, SELFPAY ==
[2021-04-29 13:03] LABS: COVID-19 RT-PCR UVMMC Result Positive (Negative)
== END 2021-04-27 17:02 | disposition home or self-care (01) ==
LOC: NCHCN 17:01
PROVIDERS: PCP Family Medicine; Visit Provider Family Medicine
DX: Z20.822 Contact with and (suspected) exposure to COVID-19 (principal); J06.9 Acute upper respiratory infection, unspecified
CPT/HCPCS: U0003; U0005

== ENCOUNTER 2021-04-29 21:34 | Emergency (ER) | payer OTHER, MEDICAID, SELFPAY ==
[2021-04-29 21:44] VITALS: BP 162/59; PULSE 58; RESP 16; TEMP 36.6; O2SAT 99
--- NOTE | 2021-04-29 21:55 | ED.GENADUL_ITS ---
Discharge Plan Disposition Patient Disposition: HOME Condition: Stable Discharge Details Clinical Impression: COVID-19 Primary Care Provider: Shirley Yu V ED Provider: Radha Nava Home Meds and New Rx's Prescriptions: Continued cilostazol 100 MG tablet 100 mg PO DAILY RF: 0 carvedilol 3.125 MG tablet 3.125 mg PO BID RF: 0 amlodipine 10 MG tablet 10 mg PO DAILY RF: 0 magnesium oxide 250 MG tablet 250 mg PO DAILY RF: 0 cholecalciferol (vitamin D3) [Vitamin D3] 1,000 UNIT capsule 1,000 unit PO DAILY RF: 0 humalog pump 31/10 RF: 0 losartan 50 MG tablet 50 mg PO DAILY RF: 0 aspirin 81 MG tablet,delayed release (DR/EC) 81 mg PO DAILY RF: 0 simvastatin 40 MG tablet 40 mg PO DAILY RF: 0 levothyroxine [Levoxyl] 100 MCG tablet 125 mcg PO DAILY RF: 0 citalopram 20 MG tablet 20 mg PO HS RF: 0 insulin lispro [Humalog KwikPen Insulin] 100 UNIT/1 ML insulin pen 27 unit SQ DAILY RF: 0 Pradaxa 150 MG capsule 150 mg PO BID RF: 0 Discharge Instructions Instructions: Viral Syndrome (ED), COVID-19 (Coronavirus Disease 2019) (ED) Additional Instructions: keep scheduled appointment tomorrow Referrals: Shirley Yu MD [Primary Care Provider] - Discharge Data Discharge Date/Time-TO BE ENTERED AT DEPARTURE: 04/29/21 22:02 Medical Decision Making patient presents for reported low oxygen saturation. she has her monitor here and we have verified that she was looking at her pulse and not her oxygen sat. her pulse is 57 and sat 97, she has transposed the numbers. these values are verified on our monitor. she has no new or worsening symptoms. she has tested positive for covid and is scheduled for outpatient antibody therapy tomorrow. she is safe for discharge with no further testing Medical Records Medical records reviewed: Yes I reviewed the patient's medical records. HPI General Mode of arrival: ambulatory . Date/Time Provider Initiated Documentation: 04/29/21 21:46 . Limitations to Documentation: no limitations . Information obtained by: patient . HPI Narrative: patient suspected to have covid, set up for antibody infusion for tomorrow if tests positive. was monitoring pulse ox and thought her sat was 57, turns out she was looking at the pulse and not the saturation. sat is 97-99 % and pulse is 57-59 here. no new c/o. exam benign Related Data Home Medications Medication Instructions Recorded Confirmed Pradaxa 150 mg PO BID 08/13/12 04/29/21 aspirin 81 mg PO DAILY 08/13/12 04/29/21 citalopram 20 mg PO HS 08/13/12 04/29/21 insulin lispro [Humalog KwikPen 27 unit SQ DAILY 08/13/12 02/22/21 Insulin] levothyroxine [Levoxyl] 125 mcg PO DAILY 08/13/12 04/29/21 losartan 50 mg PO DAILY 08/13/12 04/29/21 simvastatin 40 mg PO DAILY 08/13/12 04/29/21 Humalog Pump 24/01/07/16 02/22/21 amlodipine 10 mg PO DAILY tab-cap 01/07/16 04/29/21 carvedilol 3.125 mg PO BID tab-cap 01/07/16 04/29/21 cholecalciferol (vitamin D3) 1,000 unit PO DAILY 01/07/16 04/29/21 [Vitamin D3] cilostazol 100 mg PO DAILY 01/07/16 04/29/21 magnesium oxide 250 mg PO DAILY 01/07/16 04/29/21 Allergies Allergy/AdvReac Type Severity Reaction Status Date / Time Sulfa (Sulfonamide Allergy Severe RENAL Unverified 04/29/21 21:53 Antibiotics) FAILURE Penicillins Allergy Unknown Unverified 04/29/21 21:53 sulfamethoxazole Allergy Unverified 04/29/21 21:53 [From Bactrim] trimethoprim [From Bactrim] Allergy Unverified 04/29/21 21:53 General Stated Complaint: RespSymp DAVID: 2 Review of Systems All systems reviewed & are unremarkable except as noted in HPI and below PFSH All Active Problems (Updated 04/29/21 @ 21:57 by Radha Nava NP) COVID-19 (Acute) Hx of senior living use of blood thinners (Acute) Former smoker (Acute) Infected sebaceous cyst of skin (Acute) PAD (peripheral artery disease) (Acute) Cyst (Acute) Right shoulder Ganglion of left wrist (Acute) Concussion (Acute) Medical History (Updated 04/29/21 @ 21:57 by Radha Nava NP) Benign hypertension Chronic renal insufficiency Diabetes mellitus type 1 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 Hx of malignant melanoma Hyperlipidemia Hypothyroidism Posterior cerebral circulation hemorrhagic infarction Surgical History (Updated 01/24/18 @ 14:34 by [employer]) Abdominal hysterectomy (~2001) Carotid endarterectomy bilateral. excision of melanoma on arm. Oophrectomy, Both Stent placement LE for intermittent claudication Trigger Finger release (03/29/11) LEFT THUMB Social History Smoking/Tobacco Use Status: Former Tobacco Use Smoking risk assessment performed?: Yes Alcohol Intake: current Alcohol Intake frequency: holidays/special occasions only Drug use: Never Substance use type: does not use Current gender identity: female Do you feel safe at home: Yes Do you feel safe in your relationship?: Yes Exam Const General: cooperative, healthy appearing, comfortable and no acute distress Nutritional Appearance: average body habitus Orientation: alert, awake and oriented x3 HENMT Head: normal to inspection, normocephalic and atraumatic Mouth: oral mucosae normal Chest Chest: normal inspection of the chest Resp Effort & Inspection: normal respiratory effort Auscultation: clear to auscultation bilaterally Cardio Rate: regular rate Rhythm: regular rhythm Skin General skin exam: no rashes or lesions noted Neuro General: patient alert, patient awake and patient oriented x3 Extrem General: normal to inspection and full ROM Course Vital Signs Vital signs: Vital Signs Temperature 36.6 C 04/29/21 21:44 Pulse 58 L 04/29/21 21:44 Respiratory Rate 16 04/29/21 21:44 Blood Pressure 162/59 H 04/29/21 21:44 Pulse Oximetry 99 04/29/21 21:44 Temperature 36.6 C 04/29/21 21:44 Temperature Source Skin 04/29/21 21:44 Pulse 58 L 04/29/21 21:44 Respiratory Rate 16 04/29/21 21:44 Blood Pressure 162/59 H 04/29/21 21:44 Blood Pressure Position Sitting 04/29/21 21:44 Pulse Oximetry 99 04/29/21 21:44 Oxygen Delivery Method Room Air 04/29/21 21:44 Oxygen Flow Rate 0 04/29/21 21:44 Pain Level 0 04/29/21 21:44
== END 2021-04-29 22:02 | disposition home or self-care (01) ==
PROVIDERS: Emergency Provider Nurse Practitioner Acute Care; PCP Family Medicine
DX: U07.1 COVID-19 (principal)
CPT/HCPCS: 99281; 99283

== ENCOUNTER 2021-05-07 15:42 | Outpatient (REF) | payer OTHER, MEDICAID, SELFPAY ==
[2021-05-07 19:47] LABS: HCT 38.7 % (36.0-46.0); HGB 12.4 g/dL (11.2-15.7)
[2021-05-07 20:08] LABS: Hemoglobin A1C 7.1 % (<5.7)
[2021-05-07 20:11] LABS: ALT 19 U/L (14-59); AST 17 U/L (15-37); Albumin 3.8 g/dL (3.4-5.0); Alkaline Phosphatase 111 U/L (46-116); Anion Gap 6.4 mmol/L (3-11); BUN 34 mg/dL (7-18); Bilirubin, Total 0.7 mg/dL (0.2-1.0); CO2 29.6 mmol/L (21.0-32.0); CREATININE 1.9 mg/dL (0.55-1.02); Calcium 9.1 mg/dL (8.5-10.1); Calculated LDL 65 mg/dL (<100); Chloride 96 mmol/L (98-107); Cholesterol 179 mg/dL (<200); Estimated GFR 26.79 (mL/min/1.73m2); Glucose 135 mg/dL (74-106); HDL Cholesterol 100 mg/dL (40-60); Potassium 5.2 mmol/L (3.5-5.1); Sodium 132 mmol/L (136-145); Total Protein 7.3 g/dL (6.4-8.2); Triglyceride 71 mg/dL (<150)
[2021-05-07 20:34] LABS: FREE T4 1.27 ng/dL (0.76-1.46)
== END 2021-05-07 15:43 | disposition home or self-care (01) ==
LOC: NCHCN 15:42
PROVIDERS: PCP Family Medicine; Visit Provider Family Medicine
DX: D64.9 Anemia, unspecified (principal); I10 Essential (primary) hypertension; E78.5 Hyperlipidemia, unspecified; E03.9 Hypothyroidism, unspecified; N18.9 Chronic kidney disease, unspecified; E10.319 Type 1 diabetes mellitus with unspecified diabetic retinopathy without macular edema
CPT/HCPCS: 80053; 80061; 83036; 84439; 85014; 85018

== ENCOUNTER 2021-06-07 00:43 | Outpatient (CLI) | payer OTHER, MEDICAID, SELFPAY ==
--- NOTE | 2021-06-07 | DI.MRI_ITS ---
Exam(s) MR LUMBAR SPINE WO EXAM: MR LUMBAR SPINE WO CLINICAL HISTORY: DDD WITH RADICULOPATHY,M51.17,LOW BACK PAIN, M54.5. TECHNIQUE: Multiplanar multisequence MRI of the Lumbar spine was performed. COMPARISON: CR XR HIP LT COMPLETE AP PELVIS from 06/25/2019 CR XR LUMBAR SPINE COMPLETE from 06/25/2019 MR MR LUMBAR SPINE WO from 07/05/2019 FINDINGS: There is now a mild compression fracture of the superior endplate of L2, not seen on the prior exam. A Schmorl's node is also present at the superior endplate. There are now mild degenerative disc cisco nges at this level, L1-2.. There is no significant neural foraminal narrowing or central canal steno sis. There is mild left-sided disc bulging at L 2 3, eccentric toward the left, causing mild left neural f oraminal narrowing. There has been interval worsening of degenerative disc changes on right side at L3-4, now with sever e narrowing of the disc space, endplate osteophytes and degenerative signal changes. The asymmetric degenerative changes cause moderate levoscoliosis. There is moderate right neural foraminal narrowin g. There are facet degenerative changes combine with the disc bulging to produce mild to moderate ce ntral canal stenosis. Previously noted disc herniation is not identified. At L4-5, there is disc bulging which is slightly eccentric toward the left. No focal disc herniation is visible. The there is moderate to severe left neural foraminal narrowing. There is moderate ludwin tral canal stenosis. The L5-S1 disc shows mild bulging. No significant central canal stenosis or neural foraminal narrowi ng. IMPRESSION: Mild compression fracture of the superior endplate of L2. Interval worsening of degenerative changes at L2-3 causing mild left neural foraminal narrowing. Significant worsening of degenerative changes of the right-sided L3-4,. Previously noted disc hernia tions at L3-4 and L4-5 no longer seen. Mild interval worsening of central canal stenosis at these le vels. DATA REPOSITORY:
== END 2021-06-07 01:03 ==
PROVIDERS: PCP Family Medicine; Visit Provider Family Medicine
DX: M51.17 Intervertebral disc disorders with radiculopathy, lumbosacral region (principal); M48.56XA Collapsed vertebra, not elsewhere classified, lumbar region, initial encounter for fracture; M99.53 Intervertebral disc stenosis of neural canal of lumbar region
CPT/HCPCS: 72148

== ENCOUNTER → 2021-07-12 10:52 | Outpatient (BNVA) | payer OTHER, MEDICAID, SELFPAY | PROVIDERS: PCP Family Medicine; Referring Provider Family Medicine; Visit Provider Surgery | DX: Z01.818 Encounter for other preprocedural examination (principal); L72.3 Sebaceous cyst; Z86.14 Personal history of Methicillin resistant Staphylococcus aureus infection; Z79.01 Long term (current) use of anticoagulants; Z86.16 Personal history of COVID-19 | CPT/HCPCS: 99213 ==

== ENCOUNTER 2021-07-19 02:07 | Outpatient (CLI) | payer OTHER, MEDICAID, SELFPAY ==
[2021-07-19 13:41] LABS: Source Nasal/Nares
[2021-07-19 16:39] LABS: COVID-19 PCR Negative (Negative)
== END 2021-07-19 02:08 | disposition home or self-care (01) ==
LOC: LBO 02:07 → LBN 13:39
PROVIDERS: PCP Family Medicine; Visit Provider Surgery
DX: Z20.822 Contact with and (suspected) exposure to COVID-19 (principal); Z01.818 Encounter for other preprocedural examination
CPT/HCPCS: 87635; U0005

== ENCOUNTER 2021-07-20 10:26 | Day surgery (SDC) | payer OTHER, MEDICAID, SELFPAY ==
--- NOTE | 2021-07-19 12:19 | W.PM.OP ---
Date of service: 07/20/21 Time of Service: 12:45 Operative Note Operative Note DATE OF PROCEDURE: 07/20/21 PRE-OP DIAGNOSIS: sebaceous cysts x2 POST-OP DIAGNOSIS: same PROCEDURE: excision x2 SURGEON: Maureen Dawson COPPER TAPPER: Rachel London ANESTHESIA TYPE: Local By Surgeon and MAC Refer to Anesthesia Record ESTIMATED BLOOD LOSS: 1 PATHOLOGY: other COMPLICATIONS: None Patient's condition: stable Procedure Description: Procedure Name Lesion Removal PMx, PSx, medications, allergies, ?and social Hx are reviewed and updated in [facility] Any imagining associated with this visit was reviewed. Indication The patient is seen at the request of the PCP. The pt presents for lesion removal. We have discussed this procedure, including option of not performing surgery, technique of surgery and potential for bleeding/infection/scarring/need for removal of more tissue and post-procedural care. Patient is able to do post procedural dressing changes and understands what is expected. OBJECTIVE: Patient appears well. Vitals are normal. The patient has no allergies to lidocaine or suture material. The patient not on any blood thinners. Informed consent was obtained prior to beginning the procedure. The area was marked and doubled checked/ID?ed with the pt. PAUSE for the CAUSE completed. The risks of lesion removal include but are not limited to: bleeding, infection, scarring, reoccurrence, and the need for removal of more tissue, and complications of anesthesia. Location: 1 lesion is located on the upper outer quadrant of the left breast at approximately 11 o'clock position. This lesion is 5 mm in size. There is no signs of active infection it is freely mobile and well-circumscribed. It appears to be a sebaceous cyst. The other lesion is located on her left posterior shoulder. She had the lesion previously excised. The lesion is actually superior to the old scar. It lies within the confines of the complex tattoo. This lesion is 1 cm in size. It is well-circumscribed and freely mobile and appears to be recurrence of the sebaceous cyst. Patient understands that this will cause disruption to her tattoo. She desires removal. Both lesions are marked in preop. I reviewed risks and benefits with her and expectations for postop carre. Procedural Sedation 1% lidocaine /quarter percent Marcaine with epi 10 _cc Technique Patient appears well. Vitals are normal. The patient has no allergies to lidocaine or suture material. The patient has stopped her Pradaxa for 3 days. pt has no history of keloids or problems with healing in the past. Skin: see HPI -She did receive preop IV antibiotics. See anesthesia orders Informed consent was obtained prior to beginning the procedure. The area was marked and doubled checked/ID?ed with the pt. PAUSE for the CAUSE completed. The risks of lesion removal include but are not limited to: bleeding, infection, scarring, reoccurrence, and the need for removal of more tissue, and complications of anesthesia. After informed consent was obtained, using Chloroprep for cleansing and 1% Buffered Lidocaine for anesthetic; using sterile technique, PROCEDURE:_Complete excision of both lesions was performed. #1 The lesion is 1_cm in size. The incision was 1.2 _Cm long. The incision is closed w/ interrupted sutures of 3-0-prolene. The second lesion is 5 mm in size. The incision is 1 cm in size. It is closed with 3-0 Prolene. Sterile compression dressing is applied. sterile dressing are applied, and wound care instructions provided. The procedure was well tolerated without complications. Plan: The patient will follow up in10 days for suture removal and review of pathology. If there is any bleeding/redness/drainage/swelling/pain or tenderness- call the clinic. Patient was given instructions in wound care, activity, warning signs, appointment for follow up. If the patient has any questions or concerns, should call our clinic or go to ER/urgent care after hours. Patient expressed understanding in directions for care and was given a written copy of instructions. Rx=see [facility] Pt tolerated the procedure well without complications Patient was given instruction in activity restrictions, wound care and dressing changes. Medication usage, diet, warning signs to look for (and what to do if they occur), and an appointment for follow-up. ? ? Caring for Your Incision ? ? You?ll need to help care for your incision after surgery and certain medical procedures. To close an incision, your healthcare provider used stitches (sutures), special strips of surgical tape called Steri-Strips, surgical judd, or surgical skin glue. Follow the tips on this sheet to help stop bleeding, speed healing, and prevent infection of your incision. ? ? Pain Control ? Use ice!? Ice keeps the swelling down and swelling is what causes pain.? Never apply ice directly to the skin.? Wrap it in a towel or cloth.? Apply ice 20 minutes on and 20 minutes off for pain control.? Use as needed. ? Take tylenol 325 mg by mouth with food every 4 hours as needed for pain. Or ibuprofen 400 mg by mouth with food every 4 hours as needed for pain.? Do not take tylenol if you have a history of heavy drinking , hepatits C or liver problems.? Do not take ibuprofen if you have a history of stomach ulcers/problems, bleeding problem or kidney issues. ? Types of incision closures ? Surgical stitches (sutures) are placed by sewing the edges of an incision together with surgical thread. Sutures are either absorbable or non-absorbable. Absorbable sutures break down in the body over time. Non-absorbable sutures need to be removed. ? Home care ? Always wash your hands before touching your incision. ? Keep the incision clean, dry, and out of water, keep the incision out of water. ? Do not to pick at the scabs. Scabs help protect the wound. ? You can take a shower in 24 hours and wash the incision with soap and water. Pat dry/don?t scrub. It?s OK to wash around the incision. But don?t spray water directly on it. ? Pat stitches dry if they get wet. Don't rub. ? Check the incision site daily for pain, redness, drainage, swelling, or separation of the incision edges. ? If there is a bandage (dressing) over the incision, change this every 24 hours as instructed by your provider. Using clean hands change the dressing as directed by your healthcare provider. Always wash your hands before changing your dressing. ? Make sure any clothing that touches the incision is loose-fitting. This will prevent rubbing. If the incision is on the head, keep your child from wearing caps or other head coverings. These may rub against the incision. ? Try to avoid from rough play, contact sports, or physical activities for two weeks. This can put you at risk of opening the incision. ? Make sure you avoid doing things that could cause dirt or sweat to get in or on the incision. As your incision heals, the skin may appear pink or red. It may also feel slightly bumpy or raised. This is called a healing ridge. Over time, the color should fade and the raised skin will become less noticeable. ? Care for specific closures : ? Sutures or judd. Once you no longer need to keep these dry, clean the incision or wound daily, generally after the first 24 hours.? First remove the bandage using clean hands. Then wash the area gently with soap and warm water. Use a wet cotton swab to loosen and remove any blood or crust that forms. After cleaning, put a thin layer of antibiotic ointment on. Then put on a new bandage. ? ? Follow-up care Judd or sutures generally need to be removed in 7-10 days.?? Be sure to return for suture or staple removal as directed. If dissolving stitches were used in your mouth, these will not need to be removed. They should fall out or dissolve on their own. If tape closures were used, remove them yourself when your healthcare provider tells you to if they have not fallen off on their own. ? When to seek medical care Call your healthcare provider right away if you have any of these: ? More pain, redness, swelling, bleeding, or foul-smelling discharge around the incision area ? Fever of 101?F (38.3?C) or higher, or as directed by your child's healthcare provider ? Shaking chills ? Vomiting or nausea that doesn?t go away ? Numbness, coldness, or tingling around the incision area, or changes in skin color ? Opening of the sutures or wound Stitches or judd come apart or fall out or surgical tape falls off before 7 days, or as directed by your healthcare provider ? ? If you have any questions or concerns, please feel free to contact our office. A follow-up appointment should have been scheduled for you at the time of your departure, if not, please call our office to schedule one in 10 days. [phone] ?
[2021-07-20 10:48] VITALS: BP 161/53; PULSE 61; RESP 20; TEMP 36; O2SAT 99
[2021-07-20] MEDS: Gabapentin 300 MG CAP PO (11:12)
[2021-07-20] MEDS: Acetaminophen 500 MG TAB 1000 MG PO (11:12)
[2021-07-20] MEDS: Lactated Ringers 1,000 ML 80 ML IV (11:30)
--- NOTE | 2021-07-20 11:36 | W.ANESPRE ---
General Info Date of Service Date Performed: 07/20/21 Height: 5 ft 7 in Weight: 83.8 kg Body Mass Index (BMI): 28.9 Surgical Procedure: Operation Date: 07/20/21 14:10 Proposed Procedure Side Surgeon p Wrist Cyst Excision LT Volar Left Macario Garner MD s Excision Subaceaus Cyst X2, RT Posterior Shoulder, Rt Anterior Chest Wall Maureen Dawson, Meds Allergies and Home Medications Allergies Allergy/AdvReac Type Severity Reaction Status Date / Time Sulfa (Sulfonamide Allergy Severe RENAL Verified 07/20/21 10:59 Antibiotics) FAILURE Penicillins Allergy Unknown Verified 07/20/21 10:59 sulfamethoxazole Allergy Verified 07/20/21 10:59 [From Bactrim] trimethoprim [From Bactrim] Allergy Verified 07/20/21 10:59 Home Medication Medication Instructions Recorded aspirin 81 mg tablet,delayed 81 mg PO DAILY 08/13/12 release citalopram 20 mg tablet 20 mg PO HS 08/13/12 dabigatran etexilate 150 mg 150 mg PO BID 08/13/12 capsule (Pradaxa) insulin lispro 100 unit/mL 27 unit SQ DAILY 08/13/12 subcutaneous pen (Humalog KwikPen (U-100) Insulin) levothyroxine 100 mcg tablet 125 mcg PO DAILY 08/13/12 (Levoxyl) losartan 50 mg tablet 50 mg PO DAILY 08/13/12 simvastatin 40 mg tablet 40 mg PO DAILY 08/13/12 Humalog Pump 24/7 01/07/16 amlodipine 10 mg tablet 10 mg PO DAILY tab-cap 01/07/16 carvedilol 3.125 mg tablet 3.125 mg PO BID tab-cap 01/07/16 cholecalciferol (vitamin D3) 25 1,000 unit PO DAILY 01/07/16 mcg (1,000 unit) capsule (Vitamin D3) cilostazol 100 mg tablet 100 mg PO DAILY 01/07/16 magnesium oxide 250 mg PO DAILY 01/07/16 Current Visit Medications: Current Medications Generic Name Dose Route Start Last Admin Trade Name Freq PRN Reason Stop Dose Admin Acetaminophen 1,000 mg 07/20/21 06:00 07/20/21 11:12 Acetaminophen 500 Mg Tab PO 08/18/21 23:59 1,000 mg PREOP SUNIL Administration Gabapentin 300 mg 07/20/21 06:00 07/20/21 11:12 Gabapentin 300 Mg Cap PO 08/18/21 23:59 300 mg PREOP SUNIL Administration Ondansetron HCl 4 mg/ Sodium 52 mls @ 200 mls/hr 07/19/21 12:18 Chloride IVPB Q6H PRN PRN Ringer's Solution 1,000 mls @ 80 mls/hr 07/20/21 06:00 07/20/21 11:30 IV 08/18/21 23:59 80 mls/hr INFUSION SUNIL Administration Cefazolin Sodium/Dextrose 2 gm in 50 mls @ 100 mls/hr 07/20/21 06:00 Ancef Duplex IVPB 07/20/21 23:59 PREOP SUNIL IV Miscellaneous Supplies 1 each 07/20/21 06:00 Iv Access IV 08/18/21 23:59 DIRECTED SUNIL Sodium Chloride 0 ml 07/20/21 06:00 Normal Saline Flush 10 Ml Syr IV 08/18/21 23:59 PRN PRN Sodium Chloride 0 ml 07/20/21 06:00 Normal Saline 10 Ml Vial IJ 08/18/21 23:59 DIRECTED PRN Sterile Water 0 ml 07/20/21 06:00 Water,Injection,Sterile 10 Ml Vial IJ 08/18/21 23:59 DIRECTED PRN Tramadol HCl 50 mg 07/19/21 12:18 Tramadol 50 Mg Tab PO Q6H PRN PRN Pain PFSH Active Problems Active Problems: Problem Status Onset Code Sebaceous cyst L72.3 COVID-19 U07.1 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 Hx of malignant melanoma Hyperlipidemia Hypothyroidism Posterior cerebral circulation hemorrhagic infarction Surgical History Surgical History Abdominal hysterectomy (~2001) Carotid endarterectomy bilateral. excision of melanoma on arm. Oophrectomy, Both Stent placement LE for intermittent claudication Trigger Finger release (03/29/11) LEFT THUMB Tobacco Smoking/Tobacco Use Status: Former Tobacco Use Alcohol Alcohol Intake: current Alcohol intake frequency: holidays/special occasions only Substance Use Substance use: Never Substance use type: does not use Vital Signs and Lab Results Vital Signs Most Recent Vital Signs in EMR: Most Recent Vital Signs Temp Pulse Resp BP Pulse Ox 36.0 C L 61 20 161/53 H 99 07/20/21 10:48 07/20/21 10:48 07/20/21 10:48 07/20/21 10:48 07/20/21 10:48 Lab Results Blood Type / Crossmatch: No Data to Display Complete Blood Count: No Data to Display Complete Metabolic Panel: No Data to Display Liver Function Panel: No Data to Display Coagulation Panel: No Data to Display Cardiac Panel: No Data to Display Arterial Blood Gas: No Data to Display Venous Blood Gas: No Data to Display Pancreas Panel: No Data to Display Thyroid Panel: No Data to Display Infectious Disease: Coronavirus (COVID-19)(PCR) Negative (Negative) 07/19/21 11:50 07/19/21 Coronavirus 2019 Source Nasal/Nares 07/19/21 11:50 07/19/21 Blood Cultures: No Data to Display Toxicology Panel: No Data to Display Imaging and Studies Imaging and Studies Study information below may be from another EMR and interpreted by another provider. Please see original notes in EMR for more complete details. EKG Summary: DATE/TIME OF SERVICE: 09/12/202003 : 1960PERFORMING LOCATION: ER APPROVED REPORT Exam: Resting ECG Reason for Exam: dizziness Patient Location: E HR:64 bpm ECG Measurements Heart Rate 64 AXIS TN 191 P 58 QRSd 92 QRS -7 QT 431 T2 QTc 446 Conclusion Sinus rhythm...normal P axis, V-rate 60- 99 Physician: No stemi, minimal flattening on V4-6, slightly changed from ekg from 2007. inverted T wave in Lead 3 Echocardiogram Summary: Date of study: 09/17/2014 *STUDY CONCLUSIONS* Summary: 1. Left ventricle: The cavity size was normal. Wall thickness was normal. Systolic function was normal. The estimated ejection fraction was 55-60%. Wall motion was normal; there were no regional wall motion abnormalities. 2. Aortic valve: Trileaflet; mildly thickened leaflets. There was no stenosis. 3. Mitral valve: Structurally normal valve. Trivial regurgitation. 4. Left atrium: The atrium was mildly to moderately dilated. 5. Right ventricle: The cavity size was normal. Wall thickness was normal. Systolic function was normal. 6. Pulmonary arteries: Pulmonary systolic pressure was within the normal range. Anesthesia Assessment and Plan Anesthesia History Personal History: No History of Anesthesia Complications Family History: No Family History of Anesthesia Complications Exercise Tolerance Exercise Tolerance: Metabolic Equivalents>4 Pertinent Negatives Pertinent Negatives: No Symptoms of GERD Cardiac & Pulmonary Exam Cardiac Exam: Normal S1/S2 Heart Sounds Pulmonary Exam: Clear Bilateral Breath Sounds Implantable Cardiac Device Does patient have a Pacemaker or an ICD?: No Airway Exam Known Difficult Airway: No Mallampati Class: 2 Mouth Opening: Normal (> 3cm) Thyromental Distance: Greater than 3 cm Neck Range of Motion: Full ROM Neck Circumference: Normal Teeth Condition: Removable Dentures/Plates Upper ASA Classification ASA Score: ASA 3 Emergency Case?: No NPO Status NPO Status: NPO Clears >2 hours, Solids >8 hours Anesthesia Plan Resuscitation Status: Full Code Anesthesia Technique: General Anesthesia Airway Planned: LMA Monitors Used: Standard Monitors
[2021-07-20 11:43] VITALS: BMI 28.9
--- NOTE | 2021-07-20 12:05 | W.PM.DSUDISC ---
Discharge Plan Disposition Patient Disposition: HOME Condition: Good Discharge Details Reason For Visit: excision of cysts x3 Attending Provider: Macario Garner Primary Care Provider: Shirley Yu V Home Meds and New Rx's Prescriptions: No Action cilostazol 100 MG tablet 100 mg PO DAILY 0RF Label Comments: 02/03/16 patient no longer takes. bj carvedilol 3.125 MG tablet 3.125 mg PO BID 0RF amlodipine 10 MG tablet 10 mg PO DAILY 0RF magnesium oxide 250 MG tablet 250 mg PO DAILY 0RF cholecalciferol (vitamin D3) [Vitamin D3] 1,000 UNIT capsule 1,000 unit PO DAILY 0RF humalog pump / 0RF losartan 50 MG tablet 50 mg PO DAILY 0RF aspirin 81 MG tablet,delayed release (DR/EC) 81 mg PO DAILY 0RF simvastatin 40 MG tablet 40 mg PO DAILY 0RF levothyroxine [Levoxyl] 100 MCG tablet 125 mcg PO DAILY 0RF citalopram 20 MG tablet 20 mg PO HS 0RF insulin lispro [Humalog KwikPen Insulin] 100 UNIT/1 ML insulin pen 27 unit SQ DAILY 0RF Label Comments: patient currently has ongoing pump 02/03/16 not on humalog Pradaxa 150 MG capsule 150 mg PO BID 0RF Discharge Instructions Additional Instructions: Caring for Your Incision ? You?ll need to help care for your incision after surgery and certain medical procedures. To close an incision, your healthcare provider used stitches (sutures), special strips of surgical tape called Steri-Strips, surgical judd, or surgical skin glue. Follow the tips on this sheet to help stop bleeding, speed healing, and prevent infection of your incision. ? Pain Control ?Use ice!? Ice keeps the swelling down and swelling is what causes pain.? Never apply ice directly to the skin.? Wrap it in a towel or cloth.? Apply ice 20 minutes on and 20 minutes off for pain control.? Use as needed. ?Take tylenol 500 mg by mouth with food every 4 hours as needed for pain. Or ibuprofen 600 mg by mouth with food every 6 hours as needed for pain.? Do not take tylenol if you have a history of heavy drinking , hepatits C or liver problems.? Do not take ibuprofen if you have a history of stomach ulcers/problems, bleeding problem or kidney issues. ?Home care ? Always wash your hands before touching your incision. ? Keep the incision clean, dry, and out of water, keep the incision out of water. ? Do not to pick at the scabs. Scabs help protect the wound. ? You can take a shower in 24 hours and wash the incision with soap and water. Pat dry/don?t scrub. It?s OK to wash around the incision. But don?t spray water directly on it. ? Pat stitches dry if they get wet. Don't rub. ? Check the incision site daily for pain, redness, drainage, swelling, or separation of the incision edges. ? If there is a bandage (dressing) over the incision, change this every 24 hours as instructed by your provider. Using clean hands change the dressing as directed by your healthcare provider. Always wash your hands before changing your dressing. ? Make sure any clothing that touches the incision is loose-fitting. This will prevent rubbing. If the incision is on the head, keep your child from wearing caps or other head coverings. These may rub against the incision. ? Try to avoid from rough play, contact sports, or physical activities for two weeks. This can put you at risk of opening the incision. ? Make sure you avoid doing things that could cause dirt or sweat to get in or on the incision. As your incision heals, the skin may appear pink or red. It may also feel slightly bumpy or raised. This is called a healing ridge. Over time, the color should fade and the raised skin will become less noticeable. ? Call your healthcare provider right away if you have any of these: ? More pain, redness, swelling, bleeding, or foul-smelling discharge around the incision area ? Fever of 101?F (38.3?C) or higher, or as directed by your child's healthcare provider ? Shaking chills ? Vomiting or nausea that doesn?t go away ? Numbness, coldness, or tingling around the incision area, or changes in skin color ? Opening of the sutures or wound -Resume Pradaxa Monday ? -F/u: Dr. Dawson 08/02 @ 1pm Dr. Garner 07/30 @10am [facility] [phone] Activity:: see above Remove Dressings/Wound Care:: 24 hours Shower/Bathe:: 24 hours Diet:: Carb Counting Discharge Orders Discharge Orders: Discharge Order (Routine); Ordered 07/19/21 Ordered By: Maureen Dawson
[2021-07-20] MEDS: ceFAZolin 2 GM/50 ML BAG IVPB (12:11)
--- NOTE | 2021-07-20 12:26 | SKI_PTH ---
PATIENT: Jennifer Snyder LOC: [facility] U#:[id number] AGE/SX: 60/F ROOM: RE07/20/[address]: Macario Garner MD : 1960 BED: DIS: 07/20/2021 SPEC #: [id number] RECD: 07/20/21 17:47 STATUS: ELIECER REQ #: [id number] JOSE: 07/20/21 12:[address]: Macario Garner DEPT: [facility] RECD BY: Hailey Nolan ENTERED: 07/20/21 17:48 SP TYPE: SKI OTHR DR: Shirley Yu V Tissues: 1 - SKIN CYST/TAG/DEBRIDEMENT Procedures: GROSS AND MICRO LEVEL 3 Comments: [id number]
--- NOTE | 2021-07-20 12:46 | PDOC.DSDIS_ITS ---
Discharge Plan Disposition Patient Disposition: HOME Condition: Good Discharge Details Reason For Visit: excision of cysts x3 Attending Provider: Macario Garner Primary Care Provider: Shirley Yu V Home Meds and New Rx's Prescriptions: New acetaminophen 500 mg tablet 1,000 mg PO Q8H PRN (Reason: pain) Qty: 60 3RF ibuprofen 600 mg tablet 600 mg PO TID PRN (Reason: pain) Qty: 30 3RF tramadol 50 mg tablet 50 mg PO Q6H PRNQty: 6 0RF Continued cilostazol 100 MG tablet 100 mg PO DAILY 0RF Label Comments: 02/03/16 patient no longer takes. bj carvedilol 3.125 MG tablet 3.125 mg PO BID 0RF amlodipine 10 MG tablet 10 mg PO DAILY 0RF magnesium oxide 250 MG tablet 250 mg PO DAILY 0RF cholecalciferol (vitamin D3) [Vitamin D3] 1,000 UNIT capsule 1,000 unit PO DAILY 0RF humalog pump / 0RF losartan 50 MG tablet 50 mg PO DAILY 0RF aspirin 81 MG tablet,delayed release (DR/EC) 81 mg PO DAILY 0RF simvastatin 40 MG tablet 40 mg PO DAILY 0RF levothyroxine [Levoxyl] 100 MCG tablet 125 mcg PO DAILY 0RF citalopram 20 MG tablet 20 mg PO HS 0RF insulin lispro [Humalog KwikPen Insulin] 100 UNIT/1 ML insulin pen 27 unit SQ DAILY 0RF Label Comments: patient currently has ongoing pump 02/03/16 not on humalog Pradaxa 150 MG capsule 150 mg PO BID 0RF Discharge Instructions Additional Instructions: Caring for Your Incision ? ? You?ll need to help care for your incision after surgery and certain medical procedures. To close an incision, your healthcare provider used stitches (sutures), special strips of surgical tape called Steri-Strips, surgical judd, or surgical skin glue. Follow the tips on this sheet to help stop bleeding, speed healing, and prevent infection of your incision. ? ? Pain Control ?Use ice!? Ice keeps the swelling down and swelling is what causes pain.? Never apply ice directly to the skin.? Wrap it in a towel or cloth.? Apply ice 20 minutes on and 20 minutes off for pain control.? Use as needed. ?Take tylenol 500 mg by mouth with food every 4 hours as needed for pain. Or ibuprofen 600 mg by mouth with food every 6 hours as needed for pain.? Do not take tylenol if you have a history of heavy drinking , hepatits C or liver problems.? Do not take ibuprofen if you have a history of stomach ulcers/problems, bleeding problem or kidney issues. ?Home care ? Always wash your hands before touching your incision. ? Keep the incision clean, dry, and out of water, keep the incision out of water. ? Do not to pick at the scabs. Scabs help protect the wound. ? You can take a shower in 24 hours and wash the incision with soap and water. Pat dry/don?t scrub. It?s OK to wash around the incision. But don?t spray water directly on it. ? Pat stitches dry if they get wet. Don't rub. ? Check the incision site daily for pain, redness, drainage, swelling, or separation of the incision edges. ? If there is a bandage (dressing) over the incision, change this every 24 hours as instructed by your provider. Using clean hands change the dressing as directed by your healthcare provider. Always wash your hands before changing your dressing. ? Make sure any clothing that touches the incision is loose-fitting. This will prevent rubbing. If the incision is on the head, keep your child from wearing caps or other head coverings. These may rub against the incision. ? Try to avoid from rough play, contact sports, or physical activities for two weeks. This can put you at risk of opening the incision. ? Make sure you avoid doing things that could cause dirt or sweat to get in or on the incision. As your incision heals, the skin may appear pink or red. It may also feel slightly bumpy or raised. This is called a healing ridge. Over time, the color should fade and the raised skin will become less noticeable. ? Care for specific closures : ? Sutures or judd. Once you no longer need to keep these dry, clean the incision or wound daily, generally after the first 24 hours.? First remove the bandage using clean hands. Then wash the area gently with soap and warm water. Keep the area clean and dry. ? ? Follow-up care [place] or sutures generally need to be removed in 10 days.? When to seek medical care Call your healthcare provider right away if you have any of these: ? More pain, redness, swelling, bleeding, or foul-smelling discharge ar ound the incision area ? Fever of 101?F (38.3?C) or higher, or as directed by your child's healthcare provider ? Shaking chills ? Vomiting or nausea that doesn?t go away ? Numbness, coldness, or tingling around the incision area, or changes in skin color ? Opening of the sutures or wound Stitches or judd come apart or fall out or surgical tape falls off before 7 days, or as directed by your healthcare provider ? -Resume Pradaxa Monday ? [facility] [phone] Wrist Cyst Discharge Instructions Activity: You should keep the hand/wrist elevated as much as possible for the first few days. You may use the other fingers as tolerated but avoid trying to do too much too soon. You will have a large soft dressing in place and you may use the hand and wrist as tolerated in that dressing. If you remove the dressing, keep your activity light only doing basic tasks with the left hand/wrist. Dressing/Cast: The wound should stay covered until follow-up. You may choose to leave the dressing on until follow-up or it may be removed after 3 days. You may get the wound wet after three days but otherwise keep it covered. Medications: - You should take Tylenol and Ibuprofen for baseline pain control. - You have been prescribed a stronger pain medication, Tramadol, for breakthrough pain. - You may apply ice over the wrist, just double bag so it doesn't get wet. Follow-up: 10 days Activity:: Elevate Remove Dressings/Wound Care:: 72 hours Shower/Bathe:: 72 hours Diet:: As Tolerated Discharge Orders Discharge Orders: Discharge Order (Routine); Ordered 07/19/21 Ordered By: Maureen Dawson
[2021-07-20] MEDS: Sodium Bicarbonate 50 MEQ/50 ML VIAL (12:48)
[2021-07-20] MEDS: Bupivacaine 0.5% Pres-Free 30 ML VIAL (12:49)
[2021-07-20 13:36] VITALS: BP 144/57; PULSE 62; RESP 15; TEMP 36.1; O2SAT 96
--- NOTE | 2021-07-20 13:58 | W.ANESPOSTOP ---
Postoperative Evaluation Date, Time and Location Date Performed: 07/20/21 Time Performed: 13:58 Patient Location: Day Surgery Unit Vital Signs Most Recent Imported Vital Signs: Most Recent Vital Signs Temp Pulse Resp BP Pulse Ox 36.1 C L 62 15 144/57 H 96 07/20/21 13:36 07/20/21 13:36 07/20/21 13:36 07/20/21 13:36 07/20/21 13:36 Pain Score Most Recent Pain Score: Most Recent Pain Score Pain Level 0 07/20/21 13:36 Assessment Mental Status: Awake (Alert & Oriented to Patient Baseline) Airway and Respiratory Function: Patent airway with normal (patient baseline) respiratory exam Cardiovascular Function: Hemodynamically Stable Hydration Status: Adequately Hydrated Nausea & Vomiting: No Nausea or Vomiting Pain: Pt. Denies Any Pain Peripheral Nerve Block: Patient did not receive a nerve block
[2021-07-20 14:08] VITALS: BP 155/69; PULSE 60; RESP 16; TEMP 36.1; O2SAT 96
--- NOTE | 2021-07-20 21:51 | W.PM.OP ---
Date of service: 07/20/21 Time of Service: 12:45 Operative Note Operative Note DATE OF PROCEDURE: 07/20/21 PRE-OP DIAGNOSIS: Left Volar Wrist Ganglion Cyst POST-OP DIAGNOSIS: same PROCEDURE: Excision of volar wrist ganglion cyst - Left wrist SURGEON: Macario Garner SUPERVISOR CONTACT AND SERVICE CLERKS: Rachel London ANESTHESIA TYPE: General:No Airway Refer to Anesthesia Record ESTIMATED BLOOD LOSS: 20 COMPLICATIONS: None Patient was transported to: PACU Patient's condition: stable Indications: Jennifer is a 60 year old female who I have seen for a volar wrist ganglion cyst. It has continued to be bothersome despite some conservative options. Its size and interference with activities continues to cause problems. Therefore, I offered excision of the volar wrist cyst. I discussed the risks to include bleeding, infection, pain, stiffness, damage to nerve and vessels, recurrence. Despite these risks, she elects to proceed. Procedure Description: Jennifer was greeted in the preoperative holding area. Identity was confirmed and the correct site was identified and marked. Consent was reviewed the patient and signed. History and physical was updated. The patient was taken to the operating room where initial cyst excision from chest wall and back were performed by Dr. Dawson. Once this was completed she was then placed in supine position. All bony prominences were well-padded. A nonsterile tourniquet was placed high up onto the left arm. The arms and prepped with ChloraPrep and draped in a standard fashion. The surgical site was marked on the skin and injected with 1% lidocaine with epinephrine buffered with sodium bicarbonate. The tourniquet was not utilized. The skin was incised sharply. Deeper dissection was carried out with tenotomy scissors and careful attention to vascular branches in this area. The mass was identified and protected with dissection carried around. Once was fully identified it was deflated and the cyst stalk was followed down to the carpus. The cyst structure was resected and its origin from the carpus was opened with tenotomy scissors and rongeur. The wound was then thoroughly irrigated. There was noted be some oozing from the deep portions of the wound. It appeared that a small crossing branch from the radial artery was injured and this was cauterized with bipolar electrocautery. There was some minor ooze at the end the case but no rapid bleeding. The deep layer was reapproximated with a 3-0 Vicryl. The skin was closed with a running 4-0 Monocryl followed by Steri-Strips, gauze, Kerlex, and [place] wrap. At the end the case all counts were correct. The patient was awakened from anesthesia and taken to the PACU in stable condition. There were no noted complications.
== END 2021-07-20 14:43 | disposition home or self-care (01) ==
PROVIDERS: Surgery; PCP Family Medicine; Visit Provider Student in an Organized Health Care Education/Training Program
PROC: (CPT 25111; principal; 2021-07-20 14:00)
PROC: (CPT 11402; 2021-07-20 14:00)
DX: M67.432 Ganglion, left wrist; I12.9 Hypertensive chronic kidney disease with stage 1 through stage 4 chronic kidney disease, or unspecified chronic kidney disease; N18.9 Chronic kidney disease, unspecified; E10.22 Type 1 diabetes mellitus with diabetic chronic kidney disease; E03.9 Hypothyroidism, unspecified; L72.0 Epidermal cyst; E78.5 Hyperlipidemia, unspecified
CPT/HCPCS: 25111; 11402; 11401; 88304; J0690; J2250; J2405

== ENCOUNTER → 2021-07-30 10:01 | Outpatient (BNVA) | payer OTHER, MEDICAID, SELFPAY | PROVIDERS: PCP Family Medicine; Referring Provider Family Medicine; Visit Provider Student in an Organized Health Care Education/Training Program | DX: M67.432 Ganglion, left wrist (principal) ==

== ENCOUNTER → 2021-08-02 12:56 | Outpatient (BNVA) | payer OTHER, MEDICAID, SELFPAY | PROVIDERS: PCP Family Medicine; Referring Provider Family Medicine; Visit Provider Surgery | DX: Z48.02 Encounter for removal of sutures (principal) ==

== ENCOUNTER 2021-08-19 16:45 | Outpatient (REF) | payer OTHER, MEDICAID, SELFPAY ==
[2021-08-19 19:09] LABS: HCT 35.2 % (36.0-46.0); HGB 11.9 g/dL (11.2-15.7); MCH 33.3 pg (27.0-33.0); MCHC 33.8 % (32.0-36.0); MCV 99 fL (80-95); MPV 10.1 fL (8.0-11.0); Platelet Count 277 10^3/uL (130-400); RBC 3.57 10^6/uL (3.93-5.22); RDW-SD 46.6 fL; WBC 5.69 10^3/uL (4.4-10.8)
[2021-08-19 19:17] LABS: INR 1.6 (0.9-1.1); PTT Activated 49.5 sec (21.0-27.5); Prothrombin Time 16.1 sec (9.3-11.0)
[2021-08-19 19:44] LABS: ALT 16 U/L (14-59); AST 20 U/L (15-37); Albumin 3.7 g/dL (3.4-5.0); Alkaline Phosphatase 95 U/L (46-116); Anion Gap 9.8 mmol/L (3-11); BUN 27 mg/dL (7-18); Bilirubin, Total 0.7 mg/dL (0.2-1.0); CO2 28.2 mmol/L (21.0-32.0); Calcium 8.5 mg/dL (8.5-10.1); Chloride 95 mmol/L (98-107); Estimated GFR 25.25 (mL/min/1.73m2); Glucose 226 mg/dL (74-106); Potassium 4.9 mmol/L (3.5-5.1); Sodium 133 mmol/L (136-145); Total Protein 6.7 g/dL (6.4-8.2)
== END 2021-08-19 16:46 | disposition home or self-care (01) ==
LOC: NCHCN 16:45
PROVIDERS: PCP Family Medicine; Visit Provider Family Medicine
DX: N18.9 Chronic kidney disease, unspecified (principal); E10.319 Type 1 diabetes mellitus with unspecified diabetic retinopathy without macular edema; E87.5 Hyperkalemia; D64.9 Anemia, unspecified
CPT/HCPCS: 80053; 85027; 85610; 85730

== ENCOUNTER 2022-01-06 04:23 | Outpatient (CLI) | payer OTHER, MEDICAID, SELFPAY ==
[2022-01-06 12:00] LABS: Abs Immature Grans 0.01 10^3/uL (0.0-0.06); Absolute Basophil Count 0.07 10^3/uL (0.0-0.2); Absolute Eosinophil Count 0.45 10^3/uL (0.0-0.7); Absolute Lymphocyte Count 1.06 10^3/uL (1.2-3.4); Absolute Monocyte Count 0.57 10^3/uL (0.1-0.8); Basophils % 1.2; Eosinophils % 7.4; Immature Grans % 0.2; Lymphocytes % 17.5; MCH 32.2 pg (27.0-33.0); MCHC 35.3 % (32.0-36.0); MCV 91 fL (80-95); MPV 9.3 fL (8.0-11.0); Monocytes % 9.4; Neutrophils % 64.3; Platelet Count 317 10^3/uL (130-400); RBC 3.73 10^6/uL (3.93-5.22); RDW 12.4 % (11.7-14.6); RDW-SD 41.4 fL; WBC 6.06 10^3/uL (4.4-10.8)
[2022-01-06 12:19] LABS: Hemoglobin A1C 8.5 % (<5.7)
[2022-01-06 12:56] LABS: ALT 27 U/L (14-59); AST 30 U/L (15-37); Albumin 3.8 g/dL (3.4-5.0); Alkaline Phosphatase 88 U/L (46-116); Anion Gap 6.6 mmol/L (3-11); BUN 37 mg/dL (7-18); Bilirubin, Total 0.8 mg/dL (0.2-1.0); CO2 30.4 mmol/L (21.0-32.0); CREATININE 2.1 mg/dL (0.55-1.02); Calcium 9.5 mg/dL (8.5-10.1); Chloride 86 mmol/L (98-107); Creatine Kinase 304 U/L (26-192); Estimated GFR 25.99 (mL/min/1.73m2); Glucose 133 mg/dL (74-106); Magnesium 2.4 mg/dL (1.8-2.4); Potassium 4.9 mmol/L (3.5-5.1); TSH (W/Ref FT4) 27.62 uIU/mL (0.36-3.74); Total Protein 7.2 g/dL (6.4-8.2)
[2022-01-06 13:43] LABS: Sodium 123 mmol/L (136-145)
[2022-01-06 14:02] LABS: FREE T4 1.13 ng/dL (0.76-1.46)
[2022-01-06 14:27] LABS: Vitamin D 25 Total 27.1 ng/mL (30-100)
[2022-01-06 14:44] LABS: Calculated LDL 93 mg/dL (<100); Cholesterol 199 mg/dL (<200); HDL Cholesterol 87 mg/dL (40-60); Triglyceride 99 mg/dL (<150); Vitamin B12 407 pg/mL (193-986)
== END 2022-01-06 04:24 | disposition home or self-care (01) ==
PROVIDERS: PCP Family Medicine; Visit Provider Family Medicine
DX: E03.9 Hypothyroidism, unspecified (principal); E10.319 Type 1 diabetes mellitus with unspecified diabetic retinopathy without macular edema; D64.9 Anemia, unspecified; Z00.00 Encounter for general adult medical examination without abnormal findings; E10.65 Type 1 diabetes mellitus with hyperglycemia; R25.2 Cramp and spasm; I73.9 Peripheral vascular disease, unspecified; I10 Essential (primary) hypertension; E55.9 Vitamin D deficiency, unspecified
CPT/HCPCS: 36415; 80053; 80061; 82306; 82533; 82550; 82607; 83036; 83735; 84439; 84443; 85025

== ENCOUNTER 2022-02-15 01:35 | Outpatient (CLI) | payer OTHER, MEDICAID, SELFPAY ==
--- NOTE | 2022-02-15 11:00 | DI.NM_ITS ---
APPROVED REPORT Exam: Pharmacologic paired w/ low level exercise Patient Location: Out-Patient Room/Bed: Stress Nurse: Ada Sellers RN Ordering Provider:ZOFIA MGWAQAR, Contact Number: [phone] BMI: 26.14 Baseline Rhythm: Sinus Rhythm Comment: inverted T waves at baseline Indications: ABNORMAL EKG, ANTEROSEPTAL RI, DM 1 W/ RETINOPATHY Medical History Medical History: Mod-severe coronary artery calcification, COVID, former smoker, PAD, fci use o f blood thinners, HTN, DM 1, HLD, Claudication, Stroke, Obesity, Renal Insufficiency, RI w/ stents Cardiac Medications: Simvastatin, Magnesium oxide, Losartan, Insulin lispro, Carvedilol, Aspirin, Pra ce, Pantoprazole, Chlorthalidone, Allergies: Sulfa, Penicillins, Sulfamethoxazole, Trimethoprim Cardiac Risk Factors: HTN, Hyperlipidemia, Diabetes (insulin), FHX of CAD, Smoking (former), Asthma, CVD, COPD Previous Cardiac Procedures: previous stent placement Pretest Chest Pain Characteristics: No chest pain Exercise History: Physically active Physical Disabilities: None Lung Sounds: Clear to auscultation Heart Sounds: Regular Stress Test Details Test: Pharmacologic stress was paired with low level exercise. Reason for pharmacologic stress test: Abnormal EKG - T wave inversions. Nuclear Acquisition: Rest Tc-99m/Stress Tc-99m 1 day Rest Isotope: Tc-99m Sestamibi. Dose: 9.0 Date: 02/15/2022 Injection Time: 1110 Stress Isotope: Tc-99m Sestamibi. Dose: 30.0 Date: 02/15/2022 Injection Time: 1321 HR Resting HR Supine: 64 bpm Max Heart Rate (APMHR): 157.365452 bpm Resting HR Standin bpm Target HR (85% APMHR): 133.291501 bpm Max HR Achieved: 77 bpm % of APMHR: 49.04 Recovery HR: 70 bpm BP Resting BP Supine: 186/78 mmHg Resting BP Standin/76 mmHg Max BP: 186/78 mmHg Recovery BP: 180/76 mmHg ECG Resting ECG: Sinus Rhythm Ectopy: None Comment: Inferolateral T wave inversions present Stress ECG: Sinus Rhythm ST Change: No significant ST segment changes noted Arrhythmia: None Recovery ECG: Sinus Rhythm Recovery ST Change: No significant ST segment changes noted Recovery Arrhythmia: None Clinical Stress Symptoms: Chest pain Rate Pressure Product: [id number] Stress ECG Conclusion 1. Electrocardiogram showed poor R wave progression, diffuse ST-T abnormalities 2. Patient underwent testing using combination of low-level exercise and pharmacologic stress with re gadenoson 3. Peak heart rate achieved was 49% of predicted for age 4. The electrocardiographic portion of the test was nondiagnostic 5. See MPI report Stress Test Summary STAGE HR BP SpO2 Symptoms NOTES Supine 64 186/78 Standing 63 184/76 1 min post Lexiscan injection 72 164/58 c/o chest pain 3 min post Lexiscan injection 74 150/56 chest pain resolved. 6 min post Lexiscan injection 70 180/70 Patient walked on treadmill at 1.1 mph and 0% grade while receiving lexiscan injection. MPI Conclusion There is a moderate sized area of apical infarction There is no myocardial ischemia EF is 35%. The apex is akinetic. The remainder of the ventricle is hypocontractile Radiologist Interpretation Radiologist Interpretation by: Erik Awad MD Interpretation Date/Time: 02/15/2022 16:56:48
[2022-02-15] MEDS: Regadenoson 0.4 MG/5 ML SYR IVP (13:30)
== END 2022-02-15 01:55 ==
PROVIDERS: PCP Family Medicine; Visit Provider Family Medicine
DX: R94.31 Abnormal electrocardiogram [ECG] [EKG] (principal)
CPT/HCPCS: 78452; 93016; 93018; 93017; J2785

== ENCOUNTER → 2022-03-11 12:26 | Outpatient (CLI) | payer OTHER, MEDICAID, SELFPAY ==
--- NOTE | 2022-03-11 | DI.US_ITS ---
Exam(s) US LOWER EXTREMITY VENOUS RT EXAM: US LOWER EXTREMITY VENOUS RT CLINICAL HISTORY: LEG EDEMA, R60.0,H/O FEMORAL BYPASS,DISSECTION,? DVT, CHECK FLOW VEINS. TECHNIQUE: Lower extremity venous ultrasound performed using grayscale, color-flow, and spectral Do ppler analysis. COMPARISON: No exams were available for comparison FINDINGS: The common femoral, femoral and popliteal veins demonstrate normal compressibility, augmentation, and color Doppler. The posterior tibial veins are patent. No saphenous vein thrombosis or other superfi cial venous thrombosis is seen. No hematoma or Cruz's cyst is seen. Lower leg edema. IMPRESSION: Negative lower extremity ultrasound. No evidence of DVT. DATA REPOSITORY:
== END ==
PROVIDERS: PCP Family Medicine; Visit Provider Nurse Practitioner Family
DX: R60.0 Localized edema (principal)
CPT/HCPCS: 93971

== ENCOUNTER 2022-03-11 13:08 | Outpatient (REF) | payer OTHER, MEDICAID, SELFPAY ==
[2022-03-11 16:40] LABS: Anion Gap 5.6 mmol/L (3-11); BUN 29 mg/dL (7-18); CO2 30.4 mmol/L (21.0-32.0); CREATININE 1.6 mg/dL (0.55-1.02); Calcium 9.1 mg/dL (8.5-10.1); Chloride 100 mmol/L (98-107); Estimated GFR 36.01 (mL/min/1.73m2); Glucose 103 mg/dL (74-106); Potassium 4.4 mmol/L (3.5-5.1); Sodium 136 mmol/L (136-145)
== END 2022-03-11 13:09 | disposition home or self-care (01) ==
LOC: NCHCN 13:08
PROVIDERS: PCP Family Medicine; Visit Provider Family Medicine
DX: Z00.00 Encounter for general adult medical examination without abnormal findings (principal)
CPT/HCPCS: 80048

== ENCOUNTER 2022-05-16 01:53 | Outpatient (CLI) | payer OTHER, MEDICAID, SELFPAY ==
--- NOTE | 2022-05-16 16:50 | DI.DEXA_ITS ---
Exam(s) XR DEXA BONE DENSITY W/WO FABIANO EXAM: XR DEXA BONE DENSITY W/WO FABIANO CLINICAL HISTORY: SCREENING FOR OSTEOPOROSIS IN POSTMENOPAUSAL WOMAN,Z78.0,PREVENTIVE HEALTH TECHNIQUE: Routine DEXA evaluation of the lumbar spine, hip, or forearm. COMPARISON: Prior DEXA scan 2010 FINDINGS: Performed on a [employer] unit. Lateral image: No compression fracture evident. Lumbar Spine total T-score: -0.4. Prior reading in 2011 was -0.7 Hip total T-score:-1.9. Prior reading in 2011 was -0.4 Independent reading at the level of the femoral neck yields T-score of -2.4 Forearm total T-score: -1.6 IMPRESSION: Bone mineral density measures in the osteopenia range. Fracture risk is moderate. Note: Any spine fracture indicates 5x risk for subsequent spine fracture and 2x risk for subsequent h ip fracture. World Health Organization criteria for BMD interpretation classify patients: Normal...... T- Score at or above -1.0 Osteopenic... T- Score between -1.0 and -2.5 Osteoporosis... T-Score at or below -2.5
== END 2022-05-16 02:13 ==
LOC: DI 01:54
PROVIDERS: PCP Family Medicine; Visit Provider Family Medicine
DX: M85.88 Other specified disorders of bone density and structure, other site; Z78.0 Asymptomatic menopausal state
CPT/HCPCS: 77080

== ENCOUNTER 2022-07-28 13:42 | Emergency (ER) | payer OTHER, MEDICAID, SELFPAY ==
[2022-07-28 13:53] VITALS: BP 146/49; PULSE 61; RESP 18; TEMP 36.6; O2SAT 100
--- NOTE | 2022-07-28 14:00 | DI.RAD_ITS ---
Exam(s) XR FOOT LT COMPLETE EXAM: XR FOOT LT COMPLETE CLINICAL HISTORY: fall foot and toe pain. TECHNIQUE: 2D digital imaging was performed. Three views. COMPARISON: No exams were available for comparison FINDINGS: BONES: No acute fracture is present. No bony destructive lesion is seen. Small heel spur. JOINTS: No dislocation present. SOFT TISSUE: Vascular calcifications. Mild swelling. IMPRESSION: Mild swelling. DATA REPOSITORY: RADIATION DOSE DELIVERED:
--- NOTE | 2022-07-28 14:00 | DI.RAD_ITS ---
Exam(s) XR KNEE LT 3V AP,LAT,ANGIE EXAM: XR KNEE LT 3V AP,LAT,ANGIE CLINICAL HISTORY: fall knee pain. TECHNIQUE: 2D digital imaging was performed. Three views. COMPARISON: No exams were available for comparison FINDINGS: BONES: No acute fracture is present. No bony destructive lesion is seen. JOINTS: The knee is normally aligned. Question of small joint effusion. SOFT TISSUE: Vascular calcifications. IMPRESSION: Question of joint effusion. DATA REPOSITORY: RADIATION DOSE DELIVERED:
--- NOTE | 2022-07-28 14:13 | W.ED.GENAD ---
Discharge Plan Disposition Patient Disposition: Home Discharge Details Chief Complaint: Orthopedic Clinical Impression: Injury of knee, Effusion of knee Primary Care Provider: Shirley Yu V ED Provider: Nikos Gu Home Meds and New Rx's Prescriptions: No Action cilostazol 100 MG tablet 100 mg PO DAILY Patient Comments: 02/03/16 patient no longer takes. bj carvedilol 3.125 MG tablet 3.125 mg PO BID amlodipine 10 MG tablet 10 mg PO DAILY magnesium oxide 250 MG tablet 250 mg PO DAILY cholecalciferol (vitamin D3) [Vitamin D3] 1,000 UNIT capsule 1,000 unit PO DAILY humalog pump subcut 31/10 losartan 50 MG tablet 50 mg PO DAILY aspirin 81 MG tablet,delayed release (DR/EC) 81 mg PO DAILY simvastatin 40 MG tablet 40 mg PO DAILY levothyroxine [Levoxyl] 100 MCG tablet 125 mcg PO DAILY citalopram 20 MG tablet 20 mg PO HS insulin lispro [Humalog KwikPen Insulin] 100 UNIT/1 ML insulin pen 27 unit SQ DAILY Patient Comments: patient currently has ongoing pump 02/03/16 not on humalog dabigatran etexilate [Pradaxa] 150 MG capsule 150 mg PO BID acetaminophen 500 mg tablet 1,000 mg PO Q8H PRN (Reason: pain) Qty: 60 3RF ibuprofen 600 mg tablet 600 mg PO TID PRN (Reason: pain) Qty: 30 3RF Jardiance 10 mg tablet 10 mg PO DAILY Patient Comments: TAKE ONE TABLET BY MOUTH EVERY DAY Entresto 24-26 mg tablet 1 tab PO BID Patient Comments: Take 1 tablet by mouth twice a day Discharge Instructions Instructions: Swollen Knee Joint (ED) Additional Instructions: Please follow-up with orthopedic team as needed. Continue with ice elevation ibuprofen and/or acetaminophen for pain and swelling Medical Decision Making DP [id number] female presents 3 days after fall in kitchen pain to left knee and left foot/toes, subacute appearing ecchymosis to anterior knee, mild effusion, no laxity crepitus or deformity patient has soft compartments intact sensation limb intact ambulatory without assistance. No malleoli or tenderness or calcaneal tenderness. Likely contusion must also consider meniscal injury versus partial ligamentous injury lower suspicion for fracture or dislocation. Will obtain screening x-rays. Trial of Toradol anti-inflammatory we will have patient continue with ice and elevation as well as movement. Patient will be given orthopedic follow-up as needed 15: 23 patient resting comfortably no acute distress. No evidence of fracture or dislocation. Likely soft tissue injury of left knee. Will provide referral to orthopedic team for follow-up as needed HPI General Date/Time Provider Initiated Documentation: 07/28/22 13:59. HPI Narrative: 61-year-old female presents 3 days after mechanical fall in the kitchen where she fell onto her knee and foot, pain to toes of left foot as well as left knee. Able to walk without issue. Patient has been using ice and compression at home Related Data Home Medications Medication Instructions Recorded Confirmed aspirin 81 mg tablet,delayed 81 mg PO DAILY 08/13/12 07/28/22 release citalopram 20 mg tablet 20 mg PO HS 08/13/12 07/28/22 dabigatran etexilate 150 mg 150 mg PO BID 08/13/12 07/28/22 capsule (Pradaxa) insulin lispro 100 unit/mL 27 unit SQ DAILY 08/13/12 07/28/22 subcutaneous pen (Humalog KwikPen (U-100) Insulin) levothyroxine 100 mcg tablet 125 mcg PO DAILY 08/13/12 07/28/22 (Levoxyl) losartan 50 mg tablet 50 mg PO DAILY 08/13/12 07/28/22 simvastatin 40 mg tablet 40 mg PO DAILY 08/13/12 07/28/22 Humalog Pump unit subcut 24/7 01/07/16 08/02/21 amlodipine 10 mg tablet 10 mg PO DAILY 01/07/16 07/28/22 carvedilol 3.125 mg tablet 3.125 mg PO BID 01/07/16 07/28/22 cholecalciferol (vitamin D3) 25 1,000 unit PO DAILY 01/07/16 07/28/22 mcg (1,000 unit) capsule (Vitamin D3) cilostazol 100 mg tablet 100 mg PO DAILY 01/07/16 07/28/22 magnesium oxide 250 mg PO DAILY 01/07/16 07/28/22 acetaminophen 500 mg tablet 1,000 mg PO Q8H PRN pain #60 tabs 07/20/21 07/28/22 ibuprofen 600 mg tablet 600 mg PO TID PRN pain #30 tabs 07/20/21 07/28/22 empagliflozin 10 mg tablet 10 mg PO DAILY 07/28/22 07/28/22 (Jardiance) sacubitril 24 mg-valsartan 26 mg 1 tab PO BID 07/28/22 07/28/22 tablet (Entresto) Previous Rx's Medication Instructions Recorded acetaminophen 500 mg tablet 1,000 mg PO Q8H PRN pain #60 tabs 07/20/21 ibuprofen 600 mg tablet 600 mg PO TID PRN pain #30 tabs 07/20/21 Allergies Allergy/AdvReac Type Severity Reaction Status Date / Time Sulfa (Sulfonamide Allergy Severe RENAL Verified 07/28/22 13:54 Antibiotics) FAILURE Penicillins Allergy Unknown Verified 07/28/22 13:54 sulfamethoxazole Allergy Verified 07/28/22 13:54 [From Bactrim] trimethoprim [From Bactrim] Allergy Verified 07/28/22 13:54 General Stated Complaint: Orthopedic DAVID: 4 Review of Systems Narrative: Review of Systems Constitutional: negative Eyes: negative ENT: negative Cardiovascular: negative Respiratory: negative Gastrointestinal: negative : negative Musculoskeletal: Knee pain, foot pain/toe pain Skin: negative Neurologic: negative Psych: negative PFSH All Active Problems (Updated 07/28/22 @ 15:24 by Nikos Gu MD) Injury of knee (Acute) Effusion of knee (Acute) Sebaceous cyst (Acute) COVID-19 (Acute) 05/2021 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 Hx of malignant melanoma Hyperlipidemia Hypothyroidism Posterior cerebral circulation hemorrhagic infarction Surgical History (Updated 07/30/21 @ 10:23 by GENTRY Naqvi) Abdominal hysterectomy (~2001) Carotid endarterectomy bilateral. excision of melanoma on arm. Hx of removal of cyst (~07/20/21) upper left chest back Oophrectomy, Both Stent placement LE for intermittent claudication Trigger Finger release (03/29/11) LEFT THUMB Social History Smoking/Tobacco Use Status: Current every day Tobacco Type: cigarettes Smoking risk assessment performed?: Yes Alcohol Intake: current Alcohol Intake frequency: holidays/special occasions only Drug use: Never Substance use type: does not use Current gender identity: female Do you feel safe at home: Yes Do you feel safe in your relationship?: Yes Additional Social history: unable to access privately Exam Narrative Exam Narrative: Physical Examination General: alert, awake, cooperative, resting comfortably, no acute distress Skin: Subacute appearing ecchymosis to knee anteriorly Neuro: AAOx3, normal speech, moving all extremities Extremities: Mild effusion to left knee no laxity no crepitus no deformity, mild discomfort over dorsal aspect of foot near toes, DP pulse intact, no malleoli or tenderness or calcaneal tenderness. Soft compartments. Sensation intact. Ambulatory without assistance Psych: Appropriate mood and affect Course Vital Signs Vital signs: Vital Signs Temperature 36.6 C 07/28/22 13:53 Pulse 61 07/28/22 13:53 Respiratory Rate 18 07/28/22 13:53 Blood Pressure 146/49 H 07/28/22 13:53 Pulse Oximetry 100 07/28/22 13:53 Temperature 36.6 C 07/28/22 13:53 Temperature Source Oral 07/28/22 13:53 Pulse 61 07/28/22 13:53 Respiratory Rate 18 07/28/22 13:53 Respiratory Effort Normal, Non-Labored 07/28/22 13:53 Blood Pressure 146/49 H 07/28/22 13:53 Pulse Oximetry 100 07/28/22 13:53 Oxygen Delivery Method Room Air 07/28/22 13:53 Oxygen Flow Rate 0 07/28/22 13:53 PAWSS Have you Been Recently Intoxicated or Drunk Within the Last 30 days?: No Have you Ever Experienced Previous Episodes of Alcohol Withdrawal?: No Have you ever Experienced Withdrawal Seizures?: No Have you ever Experienced Delirium Tremens(DT)s?: No Have you ever undergone Alcohol Rehabilitation Treatment (i.e, inpt ot outpatient treatment programs)?: No Have you ever Experienced Blackouts?: No Have you ever Combined Alcohol with other Downers within the last 90 days?: No Have you ever Combined Alcohol with any other Substance of Abuse during the last 90 days?: No Positive Blood Alcohol level on Presentation? [PCS.BAL]: No Evidence of Increased Autonomic Activity (i.e. HR>120, tremor, sweating, agitation, nausea)?: No Result: 0
[2022-07-28] MEDS: Ketorolac 15 MG/ML VIAL IM (14:18)
[2022-07-28 15:42] VITALS: BP 156/71; PULSE 57; RESP 18; O2SAT 100
== END 2022-07-28 15:43 | disposition home or self-care (01) ==
PROVIDERS: Emergency Provider Emergency Medicine; PCP Family Medicine
DX: S80.02XA Contusion of left knee, initial encounter (principal); M25.462 Effusion, left knee; I10 Essential (primary) hypertension; E10.9 Type 1 diabetes mellitus without complications; E03.9 Hypothyroidism, unspecified; Z79.82 Long term (current) use of aspirin; Z79.4 Long term (current) use of insulin; W19.XXXA Unspecified fall, initial encounter; Y92.000 Kitchen of unspecified non-institutional (private) residence as the place of occurrence of the external cause
CPT/HCPCS: 73562; 96372; 99284; 73630; J1885

== ENCOUNTER 2022-08-03 11:38 | Emergency (ER) | payer OTHER, MEDICAID, SELFPAY ==
[2022-08-03 11:42] VITALS: BP 136/41; PULSE 70; RESP 18; TEMP 36.5; O2SAT 97
--- NOTE | 2022-08-03 11:57 | W.ED.GENAD ---
Discharge Plan Disposition Patient Disposition: Home Condition: Improving Discharge Details Clinical Impression: Fracture of toe of left foot Primary Care Provider: Shirley Yu V ED Provider: Aaron Thomas Meds and New Rx's Prescriptions: New clindamycin HCl [Cleocin HCl] 150 mg capsule 150 mg PO Q6H Qty: 30 0RF Continued cilostazol 100 MG tablet 100 mg PO DAILY Patient Comments: 02/03/16 patient no longer takes. bj carvedilol 3.125 MG tablet 3.125 mg PO BID amlodipine 10 MG tablet 10 mg PO DAILY magnesium oxide 250 MG tablet 250 mg PO DAILY cholecalciferol (vitamin D3) [Vitamin D3] 1,000 UNIT capsule 1,000 unit PO DAILY humalog pump subcut 31/10 losartan 50 MG tablet 50 mg PO DAILY aspirin 81 MG tablet,delayed release (DR/EC) 81 mg PO DAILY simvastatin 40 MG tablet 40 mg PO DAILY levothyroxine [Levoxyl] 100 MCG tablet 125 mcg PO DAILY citalopram 20 MG tablet 20 mg PO HS insulin lispro [Humalog KwikPen Insulin] 100 UNIT/1 ML insulin pen 27 unit SQ DAILY Patient Comments: patient currently has ongoing pump 02/03/16 not on humalog dabigatran etexilate [Pradaxa] 150 MG capsule 150 mg PO BID acetaminophen 500 mg tablet 1,000 mg PO Q8H PRN (Reason: pain) Qty: 60 3RF ibuprofen 600 mg tablet 600 mg PO TID PRN (Reason: pain) Qty: 30 3RF Patient Comments: does not use Jardiance 10 mg tablet 10 mg PO DAILY Patient Comments: TAKE ONE TABLET BY MOUTH EVERY DAY Entresto 24-26 mg tablet 1 tab PO BID Patient Comments: Take 1 tablet by mouth twice a day Discharge Data Discharge Physician: Aaron Thomas Medical Decision Making Medical Records Medical records reviewed: Yes I reviewed the patient's medical records. Medical records narrative: Patient patient presents to the emergency department after she got her foot left caught in the side of her bed but had been 24 hours ago. She has a small laceration between the fourth and fifth toe of the left foot and x-rays does show a fracture of the proximal phalanx of the third fourth and fifth toe that are nondisplaced. Patient is a diabetic and with his I will give her antibiotics for there is a wound next to the fracture although it is not an open fracture of the fracture is nondisplaced and the laceration is from the side rail. Patient will place on the Ortho boot and will be given crutches and will continue care and follow-up with orthopedic surgery as needed. Imaging Data Radiologic Study: Imaging: X-Ray Radiologist's impression: Patient Name: Jennifer Snyder Unit #: [id number] Loc: ER ? Ordering Provider:? Aaron Thomas M.D. Status: REG ER ? Primary Care Provider: Shirley Yu M.D. Date of Exam: 08/03/22 Sex: F ? Admission Date: 08/03/22? : 1960 ? Age: 61 ? Exam(s) XR FOOT LT COMPLETE EXAM:? XR FOOT LT COMPLETE CLINICAL HISTORY: ? trauma to toes and foot.? TECHNIQUE:? 2D digital imaging was performed.? Three views. COMPARISON:? CR XR FOOT LT COMPLETE from 07/28/2022 FINDINGS: BONES: There is a nondisplaced fracture at the base of the proximal phalanx of the 5th toe.? Nondisplaced fractures are seen at the distal aspect of the 3rd and 4th proximal phalanges.? There is no visible extension to the articular surfaces.? No bony destructive lesion is seen. ? Small plantar calcaneal spur. JOINTS: No dislocation present. SOFT TISSUE: Vascular calcifications.? IMPRESSION: Fractures of the proximal phalanges of the 3rd, 4th and 5th toes. DATA REPOSITORY:? RADIATION DOSE DELIVERED:? HPI General Date/Time Provider Initiated Documentation: 08/03/22 11:57. HPI Narrative: Patient presents to the emergency department 24 hours after she states that she got her left foot caught on the bed rail while she was coming off her bed sustaining trauma to her toes and foot. Sustaining small lacerations between the fourth and fifth toe but did not want to come in yesterday and today comes in because the foot is swelling and she is having pain which she rates about a 6 over 10 and also states that she cannot bear weight. Related Data Home Medications Medication Instructions Recorded Confirmed aspirin 81 mg tablet,delayed 81 mg PO DAILY 08/13/12 08/03/22 release citalopram 20 mg tablet 20 mg PO HS 08/13/12 08/03/22 dabigatran etexilate 150 mg 150 mg PO BID 08/13/12 08/03/22 capsule (Pradaxa) insulin lispro 100 unit/mL 27 unit SQ DAILY 08/13/12 08/03/22 subcutaneous pen (Humalog KwikPen (U-100) Insulin) levothyroxine 100 mcg tablet 125 mcg PO DAILY 08/13/12 08/03/22 (Levoxyl) losartan 50 mg tablet 50 mg PO DAILY 08/13/12 08/03/22 simvastatin 40 mg tablet 40 mg PO DAILY 08/13/12 08/03/22 Humalog Pump unit subcut 24/7 01/07/16 08/02/21 amlodipine 10 mg tablet 10 mg PO DAILY 01/07/16 08/03/22 carvedilol 3.125 mg tablet 3.125 mg PO BID 01/07/16 08/03/22 cholecalciferol (vitamin D3) 25 1,000 unit PO DAILY 01/07/16 08/03/22 mcg (1,000 unit) capsule (Vitamin D3) cilostazol 100 mg tablet 100 mg PO DAILY 01/07/16 08/03/22 magnesium oxide 250 mg PO DAILY 01/07/16 08/03/22 acetaminophen 500 mg tablet 1,000 mg PO Q8H PRN pain #60 tabs 07/20/21 08/03/22 ibuprofen 600 mg tablet 600 mg PO TID PRN pain #30 tabs 07/20/21 07/28/22 empagliflozin 10 mg tablet 10 mg PO DAILY 07/28/22 08/03/22 (Jardiance) sacubitril 24 mg-valsartan 26 mg 1 tab PO BID 07/28/22 08/03/22 tablet (Entresto) clindamycin HCl 150 mg capsule 150 mg PO Q6H #30 caps 08/03/22 (Cleocin HCl) Previous Rx's Medication Instructions Recorded acetaminophen 500 mg tablet 1,000 mg PO Q8H PRN pain #60 tabs 07/20/21 ibuprofen 600 mg tablet 600 mg PO TID PRN pain #30 tabs 07/20/21 clindamycin HCl 150 mg capsule 150 mg PO Q6H #30 caps 08/03/22 (Cleocin HCl) Allergies Allergy/AdvReac Type Severity Reaction Status Date / Time Sulfa (Sulfonamide Allergy Severe RENAL Verified 08/03/22 11:44 Antibiotics) FAILURE Penicillins Allergy Unknown Verified 08/03/22 11:44 sulfamethoxazole Allergy Verified 08/03/22 11:44 [From Bactrim] trimethoprim [From Bactrim] Allergy Verified 08/03/22 11:44 General Stated Complaint: Orthopedic DAVID: 4 Review of Systems All systems reviewed & are unremarkable except as noted in HPI and below PFSH All Active Problems (Updated 08/03/22 @ 13:32 by Aaron Thomas MD) Injury of knee (Acute) Effusion of knee (Acute) Fracture of toe of left foot (Acute) Sebaceous cyst (Acute) COVID-19 (Acute) 05/2021 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 Hx of malignant melanoma Hyperlipidemia Hypothyroidism Posterior cerebral circulation hemorrhagic infarction Surgical History (Updated 07/30/21 @ 10:23 by GENTRY Naqvi) Abdominal hysterectomy (~2001) Carotid endarterectomy bilateral. excision of melanoma on arm. Hx of removal of cyst (~07/20/21) upper left chest back Oophrectomy, Both Stent placement LE for intermittent claudication Trigger Finger release (03/29/11) LEFT THUMB Social History Smoking/Tobacco Use Status: Current every day Tobacco Type: cigarettes Smoking risk assessment performed?: Yes Alcohol Intake: current Alcohol Intake frequency: holidays/special occasions only Drug use: Never Substance use type: does not use Current gender identity: female Do you feel safe at home: Yes Do you feel safe in your relationship?: Yes Additional Social history: unable to access privately Exam Const General: cooperative, healthy appearing and comfortable Nutritional Appearance: average body habitus and well nourished [facility] Head: normal to inspection, normocephalic and atraumatic Face and sinus: normal facial exam Mouth: oral mucosae normal and lip normal Eyes General: appearance normal, both eyes and all related structures Conjunctivae: conjunctivae normal Cornea: corneas normal Pupils: PERRL Neck Neck: normal visual inspection, full ROM and no lymphadenopathy Chest Chest: normal inspection of the chest Cardio Jugular venous pressure: no JVD Rate: regular rate Rhythm: regular rhythm GI Inspection: normal to inspection Palpation: soft Back/Spine/Pelvis Back: no CVA tenderness Skin General skin exam: ecchymosis (Ecchymosis over the third fourth and fifth toe the left foot and dorsum) Trauma: laceration (2 small 0.5 cm lacerations between the fourth and fifth toe of the left sharad) left 5th toe Extrem Left lower extremity: foot (Ecchymosis over the dorsum of the left foot third fourth and fifth toe) Details: edema Course Reevaluation(s) Time: 13:35 Reevaluation: Patient feels better after Toradol Vital Signs Vital signs: Vital Signs Temperature 36.5 C 08/03/22 11:42 Pulse 70 08/03/22 11:42 Respiratory Rate 18 08/03/22 11:42 Blood Pressure 136/41 L 08/03/22 11:42 Pulse Oximetry 97 08/03/22 11:42 Temperature 36.5 C 08/03/22 11:42 Temperature Source Temporal Artery Scan 08/03/22 11:42 Pulse 70 08/03/22 11:42 Respiratory Rate 18 08/03/22 11:42 Respiratory Effort Normal, Non-Labored 08/03/22 11:43 Blood Pressure 136/41 L 08/03/22 11:42 Pulse Oximetry 97 08/03/22 11:42 Oxygen Delivery Method Room Air 08/03/22 11:42 Oxygen Flow Rate 0 08/03/22 11:42 PAWSS Have you Been Recently Intoxicated or Drunk Within the Last 30 days?: No Have you Ever Experienced Previous Episodes of Alcohol Withdrawal?: No Have you ever Experienced Withdrawal Seizures?: No Have you ever Experienced Delirium Tremens(DT)s?: No Have you ever undergone Alcohol Rehabilitation Treatment (i.e, inpt ot outpatient treatment programs)?: No Have you ever Experienced Blackouts?: No Have you ever Combined Alcohol with other Downers within the last 90 days?: No Have you ever Combined Alcohol with any other Substance of Abuse during the last 90 days?: No Positive Blood Alcohol level on Presentation? [PCS.BAL]: No Evidence of Increased Autonomic Activity (i.e. HR>120, tremor, sweating, agitation, nausea)?: No Result: 0
--- NOTE | 2022-08-03 12:00 | DI.RAD_ITS ---
Exam(s) XR FOOT LT COMPLETE EXAM: XR FOOT LT COMPLETE CLINICAL HISTORY: trauma to toes and foot. TECHNIQUE: 2D digital imaging was performed. Three views. COMPARISON: CR XR FOOT LT COMPLETE from 07/28/2022 FINDINGS: BONES: There is a nondisplaced fracture at the base of the proximal phalanx of the 5th toe. Nondispl aced fractures are seen at the distal aspect of the 3rd and 4th proximal phalanges. There is no visi ble extension to the articular surfaces. No bony destructive lesion is seen. Small plantar calcane al spur. JOINTS: No dislocation present. SOFT TISSUE: Vascular calcifications. IMPRESSION: Fractures of the proximal phalanges of the 3rd, 4th and 5th toes. DATA REPOSITORY: RADIATION DOSE DELIVERED:
[2022-08-03] MEDS: Ketorolac 30 MG/ML VIAL IM (12:17)
[2022-08-03 13:48] VITALS: BP 136/41; PULSE 70; RESP 18; TEMP 36.5; O2SAT 97
--- NOTE | 2022-08-04 10:49 | NUR.NOTE ---
Nursing Note: Accessed chart for [facility] billing purposes.
== END 2022-08-03 13:53 | disposition home or self-care (01) ==
PROVIDERS: Emergency Provider Emergency Medicine Emergency Medical Services; PCP Family Medicine
DX: S92.515A Nondisplaced fracture of proximal phalanx of left lesser toe(s), initial encounter for closed fracture (principal); S91.312A Laceration without foreign body, left foot, initial encounter; I10 Essential (primary) hypertension; E10.9 Type 1 diabetes mellitus without complications; E03.9 Hypothyroidism, unspecified; Z79.82 Long term (current) use of aspirin; Z79.4 Long term (current) use of insulin; W23.1XXA Caught, crushed, jammed, or pinched between stationary objects, initial encounter
CPT/HCPCS: 96372; 99284; 73630; J1885

== ENCOUNTER 2022-08-11 01:04 | Outpatient (CLI) | payer OTHER, MEDICAID, SELFPAY ==
--- NOTE | 2022-08-11 15:25 | DI.MAMMO_ITS ---
Exam(s) MAMMO SCREENING EXAM: MAMMO SCREENING CLINICAL HISTORY: SCREENING, Z12.31 TECHNIQUE: Bilateral full field digital CC and MLO mammographic images were obtained with 3D tomosyn thesis and utilizing computer aided detection (CAD). COMPARISON: Available for comparison. FINDINGS: Masses/Architectural Distortion: None seen. Microcalcifications: No suspicious pleomorphic-type are seen. Skin Thickening/Nipple Retraction: None. IMPRESSION: 1. No significant interval change with no specific features of malignancy noted. 2. Unless there is more urgent need, screening mammography is recommended, as per [place] [employer] guidelines. BI-RADS Category 1 - Negative Breast Density - Category B - Scattered areas of fibroglandular density Breast density category C or D implies that the patient has dense breast tissue. Dense breast tissue is very common and is not abnormal but dense breast tissue can make it harder to find cancer on a ma mmogram. Also, dense breast tissue may increase their breast cancer risk. This information about the result of the mammogram report was provided to the patient to raise their awareness. Use this report when you speak with the patient about their risks for breast cancer, which includes their family hist ory. At that time, you may recommend for more screening tests (Ultrasound or MRI) as they might be us eful based on their risk. A negative radiographic report should not delay biopsy if a dominant or clinically suspicious mass is present. Up to ten percent of cancers are not identified on mammography. A negative report may reinforce clinical impression. Adenosis and dense breasts may obscure an underlying neoplasm. False positive reports average 6 to 10%. Patient will receive a letter notifying them of these results.
== END 2022-08-11 01:24 ==
LOC: DI 01:09
PROVIDERS: PCP Family Medicine; Visit Provider Family Medicine
DX: Z12.31 Encounter for screening mammogram for malignant neoplasm of breast (principal)
CPT/HCPCS: 77063; 77067

== ENCOUNTER → 2022-08-17 13:22 | Outpatient (BNVA) | payer OTHER, MEDICAID, SELFPAY | PROVIDERS: PCP Family Medicine; Referring Provider Family Medicine; Visit Provider Physician Assistant | DX: S80.02XD Contusion of left knee, subsequent encounter (principal); S92.912D Unspecified fracture of left toe(s), subsequent encounter for fracture with routine healing; W19.XXXD Unspecified fall, subsequent encounter | CPT/HCPCS: 99213 ==

== ENCOUNTER 2022-09-16 17:19 | Emergency (ER) | payer OTHER, MEDICAID, SELFPAY ==
[2022-09-16 17:30] VITALS: BP 132/78; PULSE 80; RESP 18; TEMP 36.8; O2SAT 99
--- NOTE | 2022-09-16 17:34 | W.ED.GENAD ---
Discharge Plan Disposition Patient Disposition: Home Condition: Stable Discharge Details Clinical Impression: Leg wound, left Primary Care Provider: Shirley Yu V ED Provider: Rambo Shaffer Home Meds and New Rx's Prescriptions: New clindamycin HCl 150 mg capsule 450 mg PO TID 7 Days Qty: 63 0RF Continued rosuvastatin 10 mg tablet 10 mg PO DAILY Entresto 24-26 mg tablet 1 tab PO BID carvedilol 12.5 mg tablet 12.5 mg PO BID Rx Instructions: must administer with a meal/food cilostazol 100 MG tablet 100 mg PO DAILY Patient Comments: 02/03/16 patient no longer takes. bj magnesium oxide 250 MG tablet 250 mg PO DAILY cholecalciferol (vitamin D3) [Vitamin D3] 1,000 UNIT capsule 1,000 unit PO DAILY humalog pump subcut 31/10 aspirin 81 MG tablet,delayed release (DR/EC) 81 mg PO DAILY levothyroxine [Levoxyl] 100 MCG tablet 125 mcg PO DAILY citalopram 20 MG tablet 20 mg PO HS insulin lispro [Humalog KwikPen Insulin] 100 UNIT/1 ML insulin pen 27 unit SQ DAILY Patient Comments: patient currently has ongoing pump 02/03/16 not on humalog dabigatran etexilate [Pradaxa] 150 MG capsule 150 mg PO BID acetaminophen 500 mg tablet 1,000 mg PO Q8H PRN (Reason: pain) Qty: 60 3RF ibuprofen 600 mg tablet 600 mg PO TID PRN (Reason: pain) Qty: 30 3RF Patient Comments: does not use Jardiance 10 mg tablet 10 mg PO DAILY Patient Comments: TAKE ONE TABLET BY MOUTH EVERY DAY Entresto 24-26 mg tablet 1 tab PO BID Patient Comments: Take 1 tablet by mouth twice a day Discontinued clindamycin HCl [Cleocin HCl] 150 mg capsule 150 mg PO Q6H Qty: 30 0RF Discharge Instructions Instructions: Laceration (ED) Additional Instructions: return in 10 days for evaluation of suture removal and sooner if signs of infection develop such as yellow/white discharge or spreading redness from the wound Medical Decision Making 61 yo female comes in with left medial calf laceration. She states a pig at her house wippeed his head back and a tooth scratched her left medial leg, no falls or other trauma. She has a 5cm vertical laceration on the mid medial left calf that goes to the subcutaneous tissues. No bleeding on arrival, intact distal sensation and pulses, full rom of the ankle. Given depth will close with sutures. No findings to suggest underlying tendon injury. closed the wound with 5 sutures, no complications, she has a penicillin allergy so will start on clindamycin. ADvised to return in 10 days for suture removal Differential Diagnosis Differential Diagnosis: laceration, abrasion HPI General Mode of arrival: ambulatory. Date/Time Provider Initiated Documentation: 09/16/22 17:20. Limitations to Documentation: no limitations. Information obtained by: patient. History of Present Illness 61 year old F presents to the emergency department with the chief complaint of left leg wound, described as moderate, Quality is described as aching, and is localized to the left and lower extremity. Patient reports no radiation. Patient started experiencing this hour(s) (1) and it has been constant. No relieving factors improve symptom(s), No exacerbating factors reported . Patient notes no other symptoms.. Patient did receive the following treatments prior to arrival, none Related Data Home Medications Medication Instructions Recorded Confirmed aspirin 81 mg tablet,delayed 81 mg PO DAILY 08/13/12 09/16/22 release citalopram 20 mg tablet 20 mg PO HS 08/13/12 09/16/22 dabigatran etexilate 150 mg 150 mg PO BID 08/13/12 09/16/22 capsule (Pradaxa) insulin lispro 100 unit/mL 27 unit SQ DAILY 08/13/12 09/16/22 subcutaneous pen (Humalog KwikPen (U-100) Insulin) levothyroxine 100 mcg tablet 125 mcg PO DAILY 08/13/12 09/16/22 (Levoxyl) Humalog Pump unit subcut 24/7 01/07/16 08/17/22 cholecalciferol (vitamin D3) 25 1,000 unit PO DAILY 01/07/16 09/16/22 mcg (1,000 unit) capsule (Vitamin D3) cilostazol 100 mg tablet 100 mg PO DAILY 01/07/16 09/16/22 magnesium oxide 250 mg PO DAILY 01/07/16 09/16/22 acetaminophen 500 mg tablet 1,000 mg PO Q8H PRN pain #60 tabs 07/20/21 09/16/22 ibuprofen 600 mg tablet 600 mg PO TID PRN pain #30 tabs 07/20/21 09/16/22 empagliflozin 10 mg tablet 10 mg PO DAILY 07/28/22 09/16/22 (Jardiance) sacubitril 24 mg-valsartan 26 mg 1 tab PO BID 07/28/22 09/16/22 tablet (Entresto) carvedilol 12.5 mg tablet 12.5 mg PO BID 08/17/22 09/16/22 rosuvastatin 10 mg tablet 10 mg PO DAILY 08/17/22 09/16/22 sacubitril 24 mg-valsartan 26 mg 1 tab PO BID 08/17/22 09/16/22 tablet (Entresto) clindamycin HCl 150 mg capsule 450 mg PO TID 7 days #63 caps 09/16/22 Previous Rx's Medication Instructions Recorded acetaminophen 500 mg tablet 1,000 mg PO Q8H PRN pain #60 tabs 07/20/21 ibuprofen 600 mg tablet 600 mg PO TID PRN pain #30 tabs 07/20/21 clindamycin HCl 150 mg capsule 450 mg PO TID 7 days #63 caps 09/16/22 Allergies Allergy/AdvReac Type Severity Reaction Status Date / Time Sulfa (Sulfonamide Allergy Severe RENAL Verified 08/17/22 13:27 Antibiotics) FAILURE Penicillins Allergy Unknown Verified 08/17/22 13:27 sulfamethoxazole Allergy Verified 08/17/22 13:27 [From Bactrim] trimethoprim [From Bactrim] Allergy Verified 08/17/22 13:27 General Stated Complaint: Laceration DAVID: 4 Review of Systems All systems reviewed & are unremarkable except as noted in HPI and below Constitutional Constitutional: Denies chills, Denies fever(s) and Denies weakness Cardiovascular Cardiovascular: Denies chest pain and Denies dyspnea Respiratory Respiratory: Denies cough and Denies dyspnea Gastrointestinal Gastrointestinal: Denies abdominal pain, Denies nausea and Denies vomiting Integumentary/Breasts Skin/Breast: Denies rash Neurologic Neurologic: Denies weakness PFSH All Active Problems (Updated 09/16/22 @ 18:09 by Rambo Shaffer MD) Leg wound, left (Acute) Contusion of left knee (Acute) Sebaceous cyst (Acute) COVID-19 (Acute) 05/2021 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 Hx of malignant melanoma Hyperlipidemia Hypothyroidism Posterior cerebral circulation hemorrhagic infarction Surgical History (Updated 07/30/21 @ 10:23 by GENTRY Naqvi) Abdominal hysterectomy (~2001) Carotid endarterectomy bilateral. excision of melanoma on arm. Hx of removal of cyst (~07/20/21) upper left chest back Oophrectomy, Both Stent placement LE for intermittent claudication Trigger Finger release (03/29/11) LEFT THUMB Social History Smoking/Tobacco Use Status: Current every day Tobacco Type: cigarettes Smoking risk assessment performed?: Yes Alcohol Intake: current Alcohol Intake frequency: holidays/special occasions only Drug use: Never Substance use type: does not use Current gender identity: female Do you feel safe at home: Yes Do you feel safe in your relationship?: Yes Additional Social history: unable to access privately Exam Const General: no acute distress Orientation: alert HENMT Head: normal to inspection Ears: external ears normal General nose exam: external nose normal Mouth: moist mucous membranes Eyes General: appearance normal, both eyes and all related structures Neck Neck: normal visual inspection Resp Effort & Inspection: normal respiratory effort and able to speak in complete sentences Cardio Rate: regular rate Skin General skin exam: no rashes or lesions noted Neuro General: patient alert and patient oriented x3 Extrem General: full ROM and capillary refill normal Psych Mental Status: mental status grossly normal Course Vital Signs Vital signs: Vital Signs Temperature 36.8 C 09/16/22 17:30 Pulse 80 09/16/22 17:30 Respiratory Rate 18 09/16/22 17:30 Blood Pressure 132/78 09/16/22 17:30 Pulse Oximetry 99 09/16/22 17:30 Temperature 36.8 C 09/16/22 17:30 Temperature Source Oral 09/16/22 17:30 Pulse 80 09/16/22 17:30 Respiratory Rate 18 09/16/22 17:30 Blood Pressure 132/78 09/16/22 17:30 Blood Pressure Position Sitting 09/16/22 17:30 Pulse Oximetry 99 09/16/22 17:30 Oxygen Delivery Method Room Air 09/16/22 17:30 Oxygen Flow Rate 0 09/16/22 17:30 Procedures Laceration Laceration 1: Site: lower extremity Side (If applicable): left Size (cm): 5 Description: linear Depth: simple, single layer Local Anesthetic: Lidocaine 1% and with Epi Amount of anesthesia used (mL): 10 Pre-repair: wound explored and irrigated extensively Skin layer closed with: nylon Size (cm): 4-0 Number of sutures: 5 Technique: simple, interrupted
[2022-09-16] MEDS: Clindamycin 150 MG CAP 450 MG PO (18:19)
== END 2022-09-16 18:27 | disposition home or self-care (01) ==
PROVIDERS: Emergency Provider Emergency Medicine; PCP Family Medicine
DX: S81.812A Laceration without foreign body, left lower leg, initial encounter (principal); W55.42XA Struck by pig, initial encounter
CPT/HCPCS: 12002

== ENCOUNTER 2022-09-21 21:07 | Outpatient (REF) | payer OTHER, MEDICAID, SELFPAY | END 2022-09-21 21:08 | disposition home or self-care (01) | LOC: LBN 21:07 | PROVIDERS: PCP Family Medicine; Visit Provider Physician Assistant Medical | DX: S81.812D Laceration without foreign body, left lower leg, subsequent encounter; L98.8 Other specified disorders of the skin and subcutaneous tissue | CPT/HCPCS: 87077; 87070; 87205 ==

== ENCOUNTER → 2022-09-23 11:26 | Outpatient (BNVA) | payer OTHER, MEDICAID, SELFPAY | PROVIDERS: PCP Family Medicine; Referring Provider Family Medicine; Visit Provider Surgery | DX: S81.802A Unspecified open wound, left lower leg, initial encounter (principal); W55.49XA Other contact with pig, initial encounter ==

== ENCOUNTER 2022-09-23 12:12 | Outpatient (REF) | payer OTHER, MEDICAID, SELFPAY ==
[2022-09-23 13:07] LABS: Abs Immature Grans 0.01 10^3/uL (0.0-0.06); Absolute Basophil Count 0.03 10^3/uL (0.0-0.2); Absolute Eosinophil Count 0.12 10^3/uL (0.0-0.7); Absolute Lymphocyte Count 0.79 10^3/uL (1.2-3.4); Absolute Monocyte Count 0.35 10^3/uL (0.1-0.8); Absolute Neutrophil Count 2.32 10^3/uL (1.2-6.7); Basophils % 0.8; Eosinophils % 3.3; HCT 39.9 % (36.0-46.0); HGB 13.3 g/dL (11.2-15.7); Immature Grans % 0.3; Lymphocytes % 21.8; MCH 32.3 pg (27.0-33.0); MCHC 33.3 % (32.0-36.0); MCV 97 fL (80-95); MPV 10.5 fL (8.0-11.0); Monocytes % 9.7; Neutrophils % 64.1; Platelet Count 220 10^3/uL (130-400); RBC 4.12 10^6/uL (3.93-5.22); RDW 12.4 % (11.7-14.6); RDW-SD 44.7 fL; WBC 3.62 10^3/uL (4.4-10.8)
[2022-09-23 13:24] LABS: Anion Gap 9.7 mmol/L (3-11); BUN 44 mg/dL (7-18); CO2 28.3 mmol/L (21.0-32.0); CREATININE 2.1 mg/dL (0.55-1.02); Calcium 9.1 mg/dL (8.5-10.1); Chloride 100 mmol/L (98-107); Estimated GFR 25.99 (mL/min/1.73m2); Glucose 200 mg/dL (74-106); Potassium 4.6 mmol/L (3.5-5.1); Sodium 138 mmol/L (136-145)
== END 2022-09-23 12:13 | disposition home or self-care (01) ==
LOC: LBN 12:12
PROVIDERS: PCP Family Medicine; Visit Provider Physical Therapy Assistant
DX: S81.852D Open bite, left lower leg, subsequent encounter; L03.116 Cellulitis of left lower limb; E10.22 Type 1 diabetes mellitus with diabetic chronic kidney disease; I10 Essential (primary) hypertension
CPT/HCPCS: 80048; 85025

== ENCOUNTER 2022-09-23 13:04 | Day surgery (SDC) | payer OTHER, MEDICAID, SELFPAY ==
[2022-09-23 14:17] VITALS: BP 193/62; PULSE 57; RESP 16; TEMP 36.8; O2SAT 98
[2022-09-23 14:17] LABS: Absolute Basophil Count 0.04 10^3/uL (0.0-0.2); Absolute Eosinophil Count 0.15 10^3/uL (0.0-0.7); Absolute Lymphocyte Count 0.95 10^3/uL (1.2-3.4); Absolute Monocyte Count 0.28 10^3/uL (0.1-0.8); Absolute Neutrophil Count 2.97 10^3/uL (1.2-6.7); Basophils % 0.9; Eosinophils % 3.4; HCT 41.3 % (36.0-46.0); Lymphocytes % 21.6; MCHC 33.9 % (32.0-36.0); MCV 97 fL (80-95); MPV 10.3 fL (8.0-11.0); Monocytes % 6.4; Neutrophils % 67.7; Platelet Count 248 10^3/uL (130-400); RBC 4.24 10^6/uL (3.93-5.22); RDW 12.4 % (11.7-14.6); RDW-SD 44.4 fL; WBC 4.39 10^3/uL (4.4-10.8)
[2022-09-23] MEDS: Lactated Ringers 1,000 ML 80 ML IV (14:27)
[2022-09-23 14:40] LABS: ALT 13 U/L (14-59); AST 20 U/L (15-37); Albumin 3.5 g/dL (3.4-5.0); Alkaline Phosphatase 114 U/L (46-116); Anion Gap 8.9 mmol/L (3-11); BUN 43 mg/dL (7-18); Bilirubin, Total 0.4 mg/dL (0.2-1.0); C-Reactive Protein 2.89 mg/dL (0.0-0.3); CO2 28.1 mmol/L (21.0-32.0); Calcium 9.3 mg/dL (8.5-10.1); Chloride 100 mmol/L (98-107); Estimated GFR 27.55 (mL/min/1.73m2); Glucose 167 mg/dL (74-106); Potassium 4.4 mmol/L (3.5-5.1); Sodium 137 mmol/L (136-145); Total Protein 7.6 g/dL (6.4-8.2)
[2022-09-23] MEDS: VANCOMYCIN/WATER (PEG) 1 GM/200 ML BAG IV (14:42)
--- NOTE | 2022-09-23 15:00 | W.ANESPRE ---
General Info Date of Service Date Performed: 09/23/22 Height: 5 ft 7 in Weight: 60.781 kg Body Mass Index (BMI): 20.9 Surgical Procedure: Operation Date: 09/23/22 16:10 Proposed Procedure Side Surgeon p I&D Leg Left Maureen Dawson, DO Meds Allergies and Home Medications Allergies Allergy/AdvReac Type Severity Reaction Status Date / Time Sulfa (Sulfonamide Allergy Severe RENAL Verified 09/16/22 18:26 Antibiotics) FAILURE sulfamethoxazole Allergy Severe renal Verified 09/23/22 13:52 [From Bactrim] failure Penicillins Allergy Unknown Verified 09/16/22 18:26 trimethoprim [From Bactrim] Allergy Verified 09/16/22 18:26 Home Medication Medication Instructions Recorded aspirin 81 mg tablet,delayed 81 mg PO DAILY 08/13/12 release citalopram 20 mg tablet 20 mg PO HS 08/13/12 dabigatran etexilate 150 mg 150 mg PO BID 08/13/12 capsule (Pradaxa) levothyroxine 100 mcg tablet 125 mcg PO DAILY 08/13/12 (Levoxyl) Humalog Pump unit subcut 24/7 01/07/16 cholecalciferol (vitamin D3) 25 1,000 unit PO DAILY 01/07/16 mcg (1,000 unit) capsule (Vitamin D3) cilostazol 100 mg tablet 100 mg PO DAILY 01/07/16 magnesium oxide 250 mg PO DAILY 01/07/16 acetaminophen 500 mg tablet 1,000 mg PO Q8H PRN pain #60 tabs 07/20/21 empagliflozin 10 mg tablet 10 mg PO DAILY 07/28/22 (Jardiance) sacubitril 24 mg-valsartan 26 mg 1 tab PO BID 07/28/22 tablet (Entresto) carvedilol 12.5 mg tablet 12.5 mg PO BID 08/17/22 rosuvastatin 10 mg tablet 10 mg PO DAILY 08/17/22 sacubitril 24 mg-valsartan 26 mg 1 tab PO BID 08/17/22 tablet (Entresto) cefuroxime axetil 500 mg tablet 500 mg PO BID 09/23/22 insulin aspart U-100 100 unit/mL 09/23/22 subcutaneous solution (Novolog U-100 Insulin aspart) metronidazole 500 mg tablet 500 mg PO TID 09/23/22 Current Visit Medications: Current Medications Generic Name Dose Route Start Last Admin Trade Name Qing PRN Reason Stop Dose Admin Ringer's Solution 1,000 mls @ 80 mls/hr 09/23/22 06:00 09/23/22 14:27 IV 10/23/22 23:59 80 mls/hr INFUSION SUNIL Administration Vancomycin/PEG/NADA/Lysine/Water 1 gm in 200 mls @ 133.333 mls/hr 09/23/22 13:45 09/23/22 14:42 Vancocin Injection IV 09/23/22 15:14 167 mls/hr NOW ONE Administration IV Miscellaneous Supplies 1 each 09/23/22 06:00 Iv Access IV 10/23/22 23:59 DIRECTED SUNIL Sodium Chloride 0 ml 09/23/22 06:00 Normal Saline Flush 10 Ml Syr IV 10/23/22 23:59 PRN PRN Sodium Chloride 0 ml 09/23/22 06:00 Normal Saline 10 Ml Vial IJ 10/23/22 23:59 DIRECTED PRN Sterile Water 0 ml 09/23/22 06:00 Water,Injection,Sterile 10 Ml Vial IJ 10/23/22 23:59 DIRECTED PRN PFSH Active Problems Active Problems: Problem Status Onset Code Concussion S06.0X9A Ganglion of left wrist M67.432 Cyst PAD (peripheral artery disease) I73.9 Infected sebaceous cyst of skin L72.3, L08.9 Former smoker Z87.891 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 excision of melanoma on arm. Hx of removal of cyst (~07/20/21) upper left chest back Oophrectomy, Both S/P cardiac cath stent placed 4 month ago Stent placement LE for intermittent claudication Trigger Finger release (03/29/11) LEFT THUMB Tobacco Smoking/Tobacco Use Status: Former Tobacco Use Alcohol Alcohol Intake: current Alcohol intake frequency: a few times a week Alcohol type: hard liquor Substance Use Substance use: Never Substance use type: does not use Vital Signs and Lab Results Vital Signs Most Recent Vital Signs in EMR: Most Recent Vital Signs Temp Pulse Resp BP Pulse Ox 36.8 C 57 L 16 193/62 H 98 09/23/22 14:17 09/23/22 14:17 09/23/22 14:17 09/23/22 14:17 09/23/22 14:17 Point of Care Results Point of Care Results: Finger Stick Blood Glucose 177 09/23/22 14:47 Lab Results 09/23/22 14:02 09/23/22 14:02 Blood Type / Crossmatch: No Data to Display Complete Blood Count: White Blood Count 4.39 10^3/uL (4.4-10.8) L 09/23/22 14:02 Red Blood Count 4.24 10^6/uL (3.93-5.22) 09/23/22 14:02 Hemoglobin 14.0 g/dL (11.2-15.7) 09/23/22 14:02 Hematocrit 41.3 % (36.0-46.0) 09/23/22 14:02 Platelet Count 248 10^3/uL (130-400) 09/23/22 14:02 Complete Metabolic Panel: Sodium 137 mmol/L (136-145) 09/23/22 14:02 Potassium 4.4 mmol/L (3.5-5.1) 09/23/22 14:02 Chloride 100 mmol/L (98-107) 09/23/22 14:02 Carbon Dioxide 28.1 mmol/L (21.0-32.0) 09/23/22 14:02 BUN 43 mg/dL (7-18) H 09/23/22 14:02 Creatinine 2.0 mg/dL (0.55-1.02) H 09/23/22 14:02 Est GFR (CKD-EPI 2020) 27.55 (mL/min/1.73m2) 09/23/22 14:02 Calcium 9.3 mg/dL (8.5-10.1) 09/23/22 14:02 Albumin 3.5 g/dL (3.4-5.0) 09/23/22 14:02 Glucose 167 mg/dL (74-106) H 09/23/22 14:02 C-Reactive Protein 2.89 mg/dL (0.0-0.3) H 09/23/22 14:02 Liver Function Panel: Alanine Aminotransferase (ALT/SGPT) 13 U/L (14-59) L 09/23/22 14:02 Aspartate Amino Transf (AST/SGOT) 20 U/L (15-37) 09/23/22 14:02 Coagulation Panel: No Data to Display Cardiac Panel: No Data to Display Arterial Blood Gas: No Data to Display Venous Blood Gas: No Data to Display Pancreas Panel: No Data to Display Thyroid Panel: No Data to Display Infectious Disease: No Data to Display Blood Cultures: No Data to Display Toxicology Panel: No Data to Display Imaging and Studies Imaging and Studies Study information below may be from another EMR and interpreted by another provider. Please see original notes in EMR for more complete details. EKG Summary: DATE/TIME OF SERVICE: 09/12/202003 : 1960PERFORMING LOCATION: ER APPROVED REPORT Exam: Resting ECG Reason for Exam: dizziness Patient Location: E HR:64 bpm ECG Measurements Heart Rate 64 AXIS OK 191 P 58 QRSd 92 QRS -7 QT 431 T2 QTc 446 Conclusion Sinus rhythm...normal P axis, V-rate 60- 99 Physician: No stemi, minimal flattening on V4-6, slightly changed from ekg from 2007. inverted T wave in Lead 3 Stress Test Summary: 02/15/2022: MPI Conclusion There is a moderate sized area of apical infarction There is no myocardial ischemia EF is 35%. The apex is akinetic. The remainder of the ventricle is hypocontractile Echocardiogram Summary: Date of study: 09/17/2014 *STUDY CONCLUSIONS* Summary: 1. Left ventricle: The cavity size was normal. Wall thickness was normal. Systolic function was normal. The estimated ejection fraction was 55-60%. Wall motion was normal; there were no regional wall motion abnormalities. 2. Aortic valve: Trileaflet; mildly thickened leaflets. There was no stenosis. 3. Mitral valve: Structurally normal valve. Trivial regurgitation. 4. Left atrium: The atrium was mildly to moderately dilated. 5. Right ventricle: The cavity size was normal. Wall thickness was normal. Systolic function was normal. 6. Pulmonary arteries: Pulmonary systolic pressure was within the normal range. Anesthesia Assessment and Plan Anesthesia History Personal History: No History of Anesthesia Complications Family History: No Family History of Anesthesia Complications Exercise Tolerance Exercise Tolerance: Metabolic Equivalents>4 Pertinent Negatives Pertinent Negatives: No Symptoms of GERD Cardiac & Pulmonary Exam Cardiac Exam: Normal S1/S2 Heart Sounds Pulmonary Exam: Other (Chronic cough) Implantable Cardiac Device Does patient have a Pacemaker or an ICD?: No Airway Exam Known Difficult Airway: No Mallampati Class: 2 Mouth Opening: Normal (> 3cm) Thyromental Distance: Greater than 3 cm Neck Range of Motion: Full ROM Neck Circumference: Normal Teeth Condition: Removable Dentures/Plates Upper ASA Classification ASA Score: ASA 3 Emergency Case?: No NPO Status NPO Status: NPO Clears >2 hours, Solids >8 hours Anesthesia Plan Resuscitation Status: Full Code Anesthesia Technique: General Anesthesia Airway Planned: Natural Airway Monitors Used: Standard Monitors Preoperative Comments:: 05/17/2022: Cardiac Cath report reviewed. 2-vessel disease, stent to distal RCA Last ate at 0800, muffin and coffee DM I, pump in place Plan for GA natural airway with ETT backup
[2022-09-23 15:03] VITALS: BMI 20.9
[2022-09-23] MEDS: PIPERACILLIN/TAZO 3.375 GM in Normal Saline 50 ML IVPB (16:29)
--- NOTE | 2022-09-23 16:49 | W.PM.OP ---
Date of service: 09/23/22 Time of Service: 16:49 Operative Note Operative Note DATE OF PROCEDURE: 09/23/22 PRE-OP DIAGNOSIS: infected animal bite POST-OP DIAGNOSIS: same PROCEDURE: incision and drainage SURGEON: Maureen Dawson ANESTHESIA TYPE: Local By Surgeon and General:No Airway Refer to Anesthesia Record ESTIMATED BLOOD LOSS: 2 PATHOLOGY: other COMPLICATIONS: None Patient was transported to: same day Patient's condition: other Procedure Description: Patient sustained an animal bite/injury on 09/16. She went to the ER and had attended to. She was on clindamycin and then Bactrim. The wound today is red, irritated, swollen, painful. She has had no fever or chills. Labs noted. She is diabetic and her blood sugars have been in the 3-4 100s. It is currently 174 today. Patient is here today for incision and drainage of wound of the left lower extremity. Informed consent is obtained explaining risks and benefits of the procedure including not limited to: Bleeding, infection, scarring, chronic pain or chronic numbness, anesthesia. Complications of wound healing, and the need to heal by secondary intention. The site is marked in preop. Patient is brought to the operative room and placed in the supine position. Anesthesia is administered per the department of anesthesia. Timeout is performed. Aerobic and anaerobic cultures are taken. The wound was then prepped and draped in usual sterile fashion using a Betadine scrub and prep solution. 20 cc of 1% lidocaine with epi was used for local anesthetization. The wound is opened and curetted. It is down to the tibia but not into the periosteum. All necrotic tissue was excised. There was minimal bleeding noted. The wound was then irrigated with 1500 cc of sterile saline. It is packed with wet-to-dry dressings of plain gauze packing. Sterile compression dressings are applied. Patient taught procedure well without complication and transferred to recovery room in stable condition. She did receive Zosyn as well as vancomycin for history of MRSA. Patient was given instructions in wound care, activity, and warning signs. She is given a prescription for Augmentin and Ultram. She will follow-up in clinic on Monday. If there is any increase in redness drainage swelling pain or her blood sugars to come back to the emergency department. Patient understood all discharge in stable and satisfactory condition. This document was created with voice activated software and may contain errors.
--- NOTE | 2022-09-23 16:50 | W.PM.DSUDISC ---
Date of service: 09/23/22 Time of Service: 16:50 Discharge Plan Disposition Patient Disposition: Home Condition: Improving Discharge Details Reason For Visit: infected wound Attending Provider: Maureen Dawson Primary Care Provider: Shirley Yu V Home Meds and New Rx's Prescriptions: New amoxicillin-pot clavulanate 875-125 mg tablet 1 tab PO BID 7 Days Qty: 14 0RF tramadol 50 mg tablet 50 mg PO Q6H PRNQty: 10 0RF Continued rosuvastatin 10 mg tablet 10 mg PO DAILY Entresto 24-26 mg tablet 1 tab PO BID carvedilol 12.5 mg tablet 12.5 mg PO BID Rx Instructions: must administer with a meal/food metronidazole 500 mg tablet 500 mg PO TID cefuroxime axetil 500 mg tablet 500 mg PO BID cilostazol 100 MG tablet 100 mg PO DAILY Patient Comments: 02/03/16 patient no longer takes. bj magnesium oxide 250 MG tablet 250 mg PO DAILY cholecalciferol (vitamin D3) [Vitamin D3] 1,000 UNIT capsule 1,000 unit PO DAILY humalog pump subcut 31/10 aspirin 81 MG tablet,delayed release (DR/EC) 81 mg PO DAILY levothyroxine [Levoxyl] 100 MCG tablet 125 mcg PO DAILY citalopram 20 MG tablet 20 mg PO HS dabigatran etexilate [Pradaxa] 150 MG capsule 150 mg PO BID acetaminophen 500 mg tablet 1,000 mg PO Q8H PRN (Reason: pain) Qty: 60 3RF insulin aspart U-100 [Novolog U-100 Insulin aspart] 100 unit/mL solution Patient Comments: INJECT 1.4 UNITS CONTINUOUSLY WITH BOLUS BEFORE MEALS Jardiance 10 mg tablet 10 mg PO DAILY Patient Comments: TAKE ONE TABLET BY MOUTH EVERY DAY Entresto 24-26 mg tablet 1 tab PO BID Patient Comments: Take 1 tablet by mouth twice a day Discharge Instructions Additional Instructions: Keep an ice bag on the incision. 20 minutes on and 20 minutes off. Ice keeps the swelling down and swelling causes pain. Make sure you wrap the ice pack in a towel and don't apply directly to the skin. -No driving for 72 hrs or of you are taking narcotic pain medications. -If you have judd or sutures in place, they will be removed at your clinic appointment in 7-10 days. [facility] Surgery Clinic: [phone] -Follow-up with Dr. Dawson Monday 10 am -diet: regular -no straining to move bowels -pain meds are very constipating: if you do not move your bowels daily take a dose of OTC Miralax -It is ok to shower. Remove dressings and packing. Shower and leg water rinse wound out. Than re-pack wound. see instructions below. Cover w/ gauze 4x4's. Start doing dressing changes 09/24. -Yogurt daily while on antibiotics. -You may find that your appetite is smaller. Eat 3-6 small meals throughout the day. It is important to drink lots of water after surgery, 6-10 glasses a day. -We do want you up walking, at least 5-6 times per day. This is very important to prevent pneumonia and blood clots. You can climb stairs, take them slowly. -You may find that you are very tired after surgery- this is normal. Pain Plan Tylenol 1000mg by mouth ever 8 hours. ?Take the Tylenol continuously for the first 72hrs- not just when you have pain.? Use the tramadol for breakthrough pain/pain >7.? Use ICE!?? Twenty minutes on, and then off, continuously for the first 72hours. If you are taking narcotic pain medication, follow the instructions on the label and do not drive. Pain medications can make you very constipated. Make sure you are moving your bowels daily. If not, take Miralax or Milk of Magnesia.?? Wet-Dry Packing Instructions. Your health care provider has covered your wound with a wet-to-dry dressing. With this type of dressing, a wet (or moist) gauze dressing is put on your wound and allowed to dry. Wound drainage and tissue can be removed when you take off the old dressing. Follow any instructions you are given on how to change the dressing. Use this sheet as a reminder. What to Expect at Home Your provider will tell you how often you should change your dressing at home. As the wound heals, you should not need as much gauze or packing gauze. Removing the Old Dressing Follow these steps to remove your dressing: ? Wash your hands thoroughly with soap and warm water before and after each dressing change. Remove the old dressing. If it is sticking to your skin, wet it with warm water to loosen it. ? Remove the gauze pads or packing tape from inside your wound. ? Changing Your Dressing Follow these steps to put a new dressing on: ? Place the gauze pads or packing tape in your wound. Carefully fill in the wound and any spaces under the skin.? Use a cotton tip applicator to gently push the packing material into the wound. ? Cover the wet gauze or packing tape with a large dry dressing pad. Use tape or rolled gauze to hold this dressing in place. ? Wash your hands again when you are finished. When to Call the Doctor Call your doctor if you have any of these changes around your wound: ? Worsening redness ? More pain ? Swelling ? Bleeding ? It is larger or deeper ? It looks dried out or dark ? The drainage is increasing ? The drainage has a bad smell Also call your doctor if: ? Your temperature is 100.5?F (38?C), or higher, for more than 4 hours ? Drainage is coming from or around the wound ? Drainage is not decreasing after 3 to 5 days ? Drainage is increasing ? Drainage becomes thick, chung, yellow, or smells bad ? 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
[2022-09-23 16:54] VITALS: BP 147/50; PULSE 63; RESP 16; TEMP 36.4; O2SAT 92
--- NOTE | 2022-09-23 17:04 | W.ANESPOSTOP ---
Postoperative Evaluation Date, Time and Location Date Performed: 09/23/22 Time Performed: 17:04 Patient Location: Day Surgery Unit Vital Signs Most Recent Imported Vital Signs: Most Recent Vital Signs Temp Pulse Resp BP Pulse Ox 36.4 C L 63 16 147/50 H 92 09/23/22 16:54 09/23/22 16:54 09/23/22 16:54 09/23/22 16:54 09/23/22 16:54 Pain Score Most Recent Pain Score: Most Recent Pain Score Pain Level 0 09/23/22 16:54 Assessment Mental Status: Awake (Alert & Oriented to Patient Baseline) Airway and Respiratory Function: Patent airway with normal (patient baseline) respiratory exam Cardiovascular Function: Hemodynamically Stable Hydration Status: Adequately Hydrated Nausea & Vomiting: No Nausea or Vomiting Pain: Pt. Denies Any Pain Peripheral Nerve Block: Patient did not receive a nerve block
[2022-09-23 17:28] VITALS: BP 129/67; PULSE 64; RESP 16; TEMP 36.7; O2SAT 97
== END 2022-09-23 18:13 | disposition home or self-care (01) ==
PROVIDERS: PCP Family Medicine; Visit Provider Surgery
PROC: (CPT 11043; principal; 2022-09-23 16:00)
DX: S81.852A Open bite, left lower leg, initial encounter (principal); L03.116 Cellulitis of left lower limb; E10.22 Type 1 diabetes mellitus with diabetic chronic kidney disease; Z96.41 Presence of insulin pump (external) (internal); W55.41XA Bitten by pig, initial encounter
CPT/HCPCS: 11043; 36415; 80053; 87040; 99213; 85025; 86140; 87070; 87075; 87205; J2405; J2543; J2704; J3010

== ENCOUNTER → 2022-09-26 09:57 | Outpatient (BNVA) | payer OTHER, MEDICAID, SELFPAY | PROVIDERS: PCP Family Medicine; Referring Provider Family Medicine; Visit Provider Surgery | DX: S81.852D Open bite, left lower leg, subsequent encounter (principal); W55.42XD Struck by pig, subsequent encounter; L08.9 Local infection of the skin and subcutaneous tissue, unspecified | CPT/HCPCS: 11043; 99212 ==

== ENCOUNTER → 2022-10-03 11:28 | Outpatient (BNVA) | payer OTHER, MEDICAID, SELFPAY | PROVIDERS: PCP Family Medicine; Referring Provider Family Medicine; Visit Provider Surgery | DX: S81.852D Open bite, left lower leg, subsequent encounter (principal); W55.42XD Struck by pig, subsequent encounter | CPT/HCPCS: 11043; 99213 ==

== ENCOUNTER → 2022-10-12 14:05 | Outpatient (BNVA) | payer OTHER, MEDICAID, SELFPAY | PROVIDERS: PCP Family Medicine; Referring Provider Family Medicine; Visit Provider Physical Therapy Assistant | DX: S81.802D Unspecified open wound, left lower leg, subsequent encounter (principal); X58.XXXD Exposure to other specified factors, subsequent encounter; I73.9 Peripheral vascular disease, unspecified | CPT/HCPCS: 93922; 99213 ==

== ENCOUNTER → 2022-10-18 10:32 | Outpatient (BNVA) | payer OTHER, MEDICAID, SELFPAY | PROVIDERS: PCP Family Medicine; Referring Provider Family Medicine; Visit Provider Physical Therapy Assistant | DX: S81.802D Unspecified open wound, left lower leg, subsequent encounter (principal); X58.XXXD Exposure to other specified factors, subsequent encounter | CPT/HCPCS: 99213 ==

== ENCOUNTER → 2022-11-04 09:51 | Outpatient (BNVA) | payer OTHER, MEDICAID, SELFPAY | PROVIDERS: PCP Family Medicine; Referring Provider Family Medicine; Visit Provider Physical Therapy Assistant | DX: S81.802D Unspecified open wound, left lower leg, subsequent encounter (principal); X58.XXXD Exposure to other specified factors, subsequent encounter | CPT/HCPCS: 99213 ==

== ENCOUNTER → 2022-11-17 11:25 | Outpatient (BNVA) | payer OTHER, MEDICAID, SELFPAY | PROVIDERS: PCP Family Medicine; Referring Provider Family Medicine; Visit Provider Surgery | DX: S81.852D Open bite, left lower leg, subsequent encounter (principal); W55.42XD Struck by pig, subsequent encounter | CPT/HCPCS: 99212 ==

== ENCOUNTER → 2022-12-01 12:55 | Outpatient (BNVA) | payer OTHER, MEDICAID, SELFPAY | PROVIDERS: PCP Family Medicine; Referring Provider Family Medicine; Visit Provider Surgery | DX: R68.89 Other general symptoms and signs (principal) | CPT/HCPCS: 99211 ==

== ENCOUNTER 2022-12-21 18:26 | Outpatient (REF) | payer OTHER, MEDICAID, SELFPAY | END 2022-12-21 18:27 | disposition home or self-care (01) | LOC: NCHCN 18:26 | PROVIDERS: PCP Family Medicine; Visit Provider Physician Assistant Medical | DX: N39.0 Urinary tract infection, site not specified (principal); R82.79 Other abnormal findings on microbiological examination of urine | CPT/HCPCS: 87077; 87086; 87186 ==

== ENCOUNTER 2023-05-12 16:50 | Outpatient (REF) | payer OTHER, MEDICAID, SELFPAY ==
--- OUTSIDE RECORDS SUMMARY | 2023-05-12 17:08 | XMS_ITS | Continuity of Care Document ---
Author Name Unknown Organization [facility] Ambulatory Clinics Address [address] [place] [address] Care Team Providers Care Analysis Tester Name Role Phone Shirley Yu Primary Care Physician Encounter [facility] FIN NBR [id number] Date(s): 01/21/22 - 01/21/22 [facility] Ambulatory Clinics [address], [place] [address] Encounter Diagnosis Gamekeeper's thumb of left hand(Discharge Diagnosis) - 01/21/22 Discharge Disposition: Home or Self Care Attending Physician: Jarad Andrade. PA Allergies, Adverse Reactions, Alerts Substance Reaction Severity Status penicillin Unknown Active Functional Status 01/21/22 Other exposure to Infectious Disease Non e Medications aspirin 81 mg oral capsule 0 Refill(s) Start Date: 01/21/22 Status: Ordered carvedilol 6.25 mg oral tablet 0 Refill(s) Start Date: 01/21/22 Status: Ordered chlorthalidone 25 mg oral tablet 0 Refill(s) Start Date: 01/21/22 Status: Ordered citalopram 20 mg oral tablet 20 mg = 1 tab, Oral, Daily, # 30 tab, 0 Refill(s) Start Date: 01/21/22 Status: Ordered FeroSul 325 mg (65 mg elemental iron) oral tablet 0 Refill(s) Start Date: 01/21/22 Status: Ordered levothyroxine 150 mcg (0.15 mg) oral capsule 0 Refill(s) Start Date: 01/21/22 Status: Ordered losartan 100 mg oral tablet 0 Refill(s) Start Date: 01/21/22 Status: Ordered magnesium (as chloride)-calcium (as carbonate) 71 mg-118 mg oral delayed release tablet 2 tab, Oral, Daily, # 60 tab, 0 Refill(s) Start Date: 01/21/22 Status: Ordered NovoLOG 0 Refill(s) Start Date: 01/21/22 Status: Ordered pantoprazole 40 mg oral delayed release tablet 0 Refill(s) Start Date: 01/21/22 Status: Ordered Pradaxa 150 mg oral capsule 150 mg 1 cap, Oral, BID, # 60 cap, 0 Refill(s) Start Date: 01/21/22 Status: Ordered rosuvastatin 5 mg oral capsule 0 Refill(s) Start Date: 01/21/22 Status: Ordered Problem List Condition Confirmation Course Effective Dates Status Health [facility] Inform[facility] Chronic kidney disease Confirmed Active COPD (chronic obstructive pulmonary disease) Confirmed Active Diabetes Confirmed Active Hypertension Confirmed Active Hypothyroid Confirmed Active Vital Signs Most recent to oldest [Reference Range]: 1 Temperature Tympanic [36.6-37.9 Deg C] 3 7.0 Deg C (01/21/22 2:50 PM) Peripheral Pulse Rate [60-100 bpm] 88 bp m (01/21/22 2:50 PM) Blood Pressure [90-140/60-90 mmHg] 154/6 6mmHg *HI* (01/21/22 2:50 PM) Weight 75.75 kg (01/21/22 2:50 PM) Weight Measured (lbs) 167 lb (01/21/22 2:50 PM) Social History Social History Type Response Tobacco Former tobacco user Tobacco Use:. Sex Hospital Discharge Instructions Patient Education 01/21/2022 14:08:35 Skier's Thumb Skier's Thumb Skier's thumb is a stretched or torn ligament in the thumb from a sudden injury (acute injury). It is sometimes called gamekeeper's thumb if it developed gradually (chronic injury) from repeated overstretching of the ligaments. Ligaments are strong bands of tissue that connect bones. The ligament that is injured (ulnar collateral ligament) connects the bones that make up the joint at the base of the thumb. A tear can be either partial or complete. The severity of the injury depends on how much of the ligament was damaged or torn. If it is not treated properly, this injury can lead to arthritis. What are the causes? This condition occurs when the thumb is forcefully moved past its normal range of motion toward thewrist. It may be caused by: ??? Falling onto an outstretched hand. This often happens to skiers who fall with ski poles in their hands. ??? Repeated movements that use the thumb, like catching a ball or other object. What increases the risk? You are more likely to develop this condition if: ??? You had a previous thumb injury. ??? You play contact sports or sports that involve catching balls, such as baseball, basketball, orfootball. ??? You do activities where the thumb will be pulled away from the rest of the hand. ??? You have poor hand strength and flexibility. ??? You do not warm up properly before activities. What are the signs or symptoms? Symptoms of this condition include: ??? Pain or tenderness. ??? Swelling. ??? Trouble grasping or pinching with the injured thumb. ??? Bruising or redness. If the injury is severe, a lump (mass) may be felt under the skin in the injured area. How is this diagnosed? This condition may be diagnosed based on: ??? Your symptoms and medical history. ??? A physical exam. ??? Imaging tests, such as X-rays, ultrasound, or MRI. How is this treated? Treatment for this condition depends on the severity of your injury. ??? If the ligament is overstretched or partially torn, treatment usually involves keeping your thumb in a fixed position (immobilization) for a period of time. Your health care provider will apply abrace, splint, or cast to keep your thumb from moving until it heals. ??? If the ligament is fully torn, you may need surgery to reconnect the ligament to the bone. After surgery, you will need to wear a cast or splint on your thumb. Your health care provider may also suggest exercises or physical therapy to strengthen your thumb. Follow these instructions at home: Medicines ??? Take jevo-sek-cypysen and prescription medicines only as told by your health care provider. ??? Ask your health care provider if the medicine prescribed to you: ??? Requires you to avoid driving or using machinery. ??? Can cause constipation. You may need to take these actions to prevent or treat constipation: ??? Drink enough fluid to keep your urine pale yellow. ??? Take luvw-xbr-skjtyte or prescription medicine. ??? Eat foods that are high in fiber, such as beans, whole grains, and fresh fruits and vegetables. ??? Limit foods that are high in fat and processed sugars, such as fried or sweet foods. If you have a nonremovable cast: ??? Do not put pressure on any part of the cast until it is fully hardened. This may take several hours. ??? Do not stick anything inside the cast to scratch your skin. Doing that increases your risk of infection. ??? Check the skin around the cast every day. Tell your health care provider about any concerns. ??? You may put lotion on dry skin around the edges of the cast. Do not put lotion on the skin underneath the cast. ??? Keep the cast clean and dry. If you have a removable splint or brace: ??? Wear the splint or brace as told by your health care provider. Remove it only as told by your health care provider. ??? Check the skin around the splint or brace every day. Tell your health care provider about any concerns. ??? Loosen the splint or brace if your fingers tingle, become numb, or turn cold and blue. ??? Keep the splint or brace clean and dry. Bathing ??? Do not take baths, swim, or use a hot tub until your health care provider approves. Ask your health care provider if you may take showers. You may only be allowed to take sponge baths. ??? If your cast, splint, or brace is not waterproof: ??? Do not let it get wet. ??? Cover it with a watertight covering when you take a bath or shower. Managing pain, stiffness, and swelling ??? If directed, put ice on the injured area. To do this: ??? If you have a removable splint or brace, remove it as told by your health care provider. ??? Put ice in a plastic bag. ??? Place a towel between your skin and the bag or between your cast and the bag. ??? Leave the ice on for 20 minutes, 2???3 times a day. ??? Remove the ice if your skin turns bright red. This is very important. If you cannot feel pain, heat, or cold, you have a greater risk of damage to the area. ??? Move your fingers often to reduce stiffness and swelling. ??? Raise (elevate) the injured area above the level of your heart while you are sitting or lying down. Activity ??? Return to your normal activities as told by your health care provider. Ask your health care provider what activities are safe for you. ??? Do exercises as told by your health care provider or physical therapist. General instructions ??? Ask your health care provider when it is safe to drive if you have a cast, splint, or brace on your hand. ??? Do not wear rings on your injured thumb. ??? Keep all follow-up visits. This is important. Contact a health care provider if: ??? Your pain is not controlled with medicine. ??? Your bruising or swelling gets worse. ??? Your cast or splint is damaged. ??? Your thumb is numb and feels colder to the touch than normal. Get help right away if: ??? You have severe pain. ??? Your thumb is pale or blue. Summary ??? Skier's thumb is a stretched or torn ligament in the thumb. ??? This injury can happen suddenly (acute) or may develop gradually (chronic). ??? Treatment usually involves wearing a cast, splint, or brace on your thumb. Surgery may be needed if the ligament is fully torn. This information is not intended to replace advice given to you by your health care provider. Make sure you discuss any questions you have with your health care provider. Document Revised: 02/17/2021 Document Reviewed: 02/17/2021 Elsevier Patient Education ?? 2021 [employer] Patient Care team information Personnel Name: Shirley Yu Address: Address: [address] [address]- [place]
--- OUTSIDE RECORDS SUMMARY | 2023-05-12 17:08 | XMS_ITS | Continuity of Care Document ---
Author Name Unknown Organization [facility] Address [address] [place] [address] Care Team Providers Care Youth Advocate Name Role Phone Shirley Yu Primary Care Physician Encounter [facility] NBR [id number] Date(s): 05/05/22 - 05/05/[address] [address] Encounter Diagnosis Ischemic cardiomyopathy(Final) - Atherosclerotic heart disease of [place] coronary artery without angina pectoris (Final) - Chronic systolic (congestive) heart failure(Final) - Discharge Disposition: Home or Self Care Attending Physician: Nikhil Jade MD, OG, INDIRAP, SHAQ, KEVIN, FSCCT Admitting Physician: Nikhil Jade MD, OG, WES, SHAQ, KEVIN, FSCCT Referring Physician: Nikhil Jade MD, OG, WES, SHAQ, KEVIN, FSCCT Allergies, Adverse Reactions, Alerts Substance Reaction Severity Status penicillin Unknown Active sulfa drugs Moderate Active Assessment and Plan Future Scheduled Tests Radiology* XR Barium Swallow 03/30/22 Medications aspirin 81 mg oral capsule 0 Refill(s) Start Date: 01/21/22 Status: Ordered carvedilol 6.25 mg oral tablet 0 Refill(s) Start Date: 01/21/22 Status: Ordered chlorthalidone 25 mg oral tablet 0 Refill(s) Start Date: 01/21/22 Status: Ordered citalopram 20 mg oral tablet 20 mg = 1 tab, Oral, Daily, # 30 tab, 0 Refill(s) Start Date: 01/21/22 Status: Ordered dabigatran 75 mg oral capsule 75 mg 1 cap, Oral, BID, # 60 cap, 0 Refill(s) Start Date: 02/21/22 Status: Ordered FeroSul 325 mg (65 mg [...] Effective Dates Status Health 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 Chronic kidney disease Confirmed Active COPD (chronic obstructive pulmonary disease) Confirmed Active Concussion Confirmed Active COVID-19 Confirmed Active Depression Confirmed Active Diabetes Confirmed Active ETD (eustachian tube dysfunction) Confirmed Active Dysphagia Confirmed Active Hematochezia Confirmed Active History of heart artery stent Confirmed Active Hypertension Confirmed Active Hypoglycemia Confirmed Active Hypothyroid Confirmed Active Claudication Confirmed Active Malignant melanoma Confirmed Active Lung nodule Confirmed Active MANISH (obstructive sleep apnea) Confirmed Active Femoral-popliteal bypass graft occlusion Confirmed Active DJD (degenerative joint disease) Confirmed Active PVD (pulmonary valve disease) Confirmed Active Procedures Procedure Date Related Diagnosis Body Site Status Placement of stent in cardiac conduit Completed Results Laboratory List Name Date Basic Metabolic Panel 05/05/22 CBC w/o Diff 05/05/22 PT/ INR 05/05/22 Most recent to oldest [Reference Range]: 1 WBC [4.8-10.8 K/mcL] 5.6 K/mcL (05/05/22 2:23 PM) RBC [4.20-6.10 Million/mcL] 4.27 Million /mcL (1/26/23 2:23 PM) Prothrombin Time [9.1-10.6 seconds] 11.6 seconds *HI* (05/05/22 PM) INR [0.9-1.1] 1.2 *HI* (05/05/22 PM) BUN [8-26 mg/dL] 24 mg/dL (05/05/22 PM) Glucose Level [74-106 mg/dL] 180 mg/dL *HI* (05/05/22 PM) Potassium Level [3.5-5.1 mmol/L] 4.4 mmo l/L (05/05/22 PM) MCV [80.0-99.0 fL] 97.7 fL (05/05/22 PM) MCHC [32.0-36.0 g/dL] 32.6 g/dL (05/05/22 PM) Osmolality [275-295 mOsm/kg] 275 mOsm/kg (05/05/22 PM) Sodium Level [134-143 mmol/L] 133 mmol/L *LOW* (05/05/22) Hct [37.0-52.0 %] 41.7 % (05/05/22 PM) Calcium Level [8.9-10.3 mg/dL] 8.9 mg/dL (05/05/22 PM) MCH [27.0-31.0 pg] 31.9 pg *HI* (05/05/22) Hgb [12.0-18.0 g/dL] 13.6 g/dL (05/05/22 PM) MPV [7.4-10.4 fL] 10.2 fL (05/05/22 PM) Platelets [130-400 K/mcL] 216 K/mcL (05/05/22 PM) CO2 [22-32 mmol/L] 30 mmol/L (05/05/22 PM) Chloride Level [98-111 mmol/L] 95 mmol/L *LOW* (05/05/22 PM) RDW-CV [11.5-14.5 %] 13.4 % (1/26/23 2:23 PM) BUN/Creat Ratio [8.0-20.0] 17.4 (05/05/22 2:23 PM) Creatinine Level [0.44-1.00 mg/dL] 1.38 mg/dL *HI* (05/05/22 2:23 PM) Anion Gap [3.0-12.0] 8.0 (05/05/22 2:23 PM) eGFR CKD-EPI [>=60 mL/min/1.73 m2] 43 mL /min/1.73 m2 *LOW* (05/05/22 2:23 PM) Social History Social History Type Response Tobacco Former tobacco user Tobacco Use:. Sex Patient Care team information Personnel Name: Shirley Yu Address: Address: [address] [place] [id number]
--- OUTSIDE RECORDS SUMMARY | 2023-05-12 17:08 | XMS_ITS | Continuity of Care Document ---
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 Name Role Phone ZOFIA JEAN-BAPTISTE Primary Care Physician [phone] Encounter [facility] NBR [id number] Date(s): 04/19/23 - 04/21/[address] [address]- Encounter Diagnosis Diabetes type I(Discharge Diagnosis) - 04/19/23 History of heart artery stent(Discharge Diagnosis) - 04/20/23 Acute renal failure(Discharge Diagnosis) - 04/20/23 Pneumonia(Discharge Diagnosis) - 04/19/23 Elevated troponin(Discharge Diagnosis) - 04/19/23 Discharge Disposition: Transfer to Higher Level of Care Attending Physician: Jaxon Rollins APRN Admitting Physician: Jaxon Rollins APRN Allergies, Adverse Reactions, Alerts Substance Reaction Severity Status penicillin 1 Unknown Active sulfa drugs Moderate Active 1unknown as child. tolerates ceftriaxone. Functional Status 04/21/23 Living Environment Living Situation: Current Home Treatments: Blood glucose monitoring, Other: Insulin pump Home Devices/Equipment Other: Insulin pump Professional Skilled Services: Special Services and Community Resources: Sensory Deficits: Performed by: Steffanie Huang-04/20/23 14:53:00 Living Situation: Current Home Treatments: Blood glucose monitoring, Other: Insulin pump Home Devices/Equipment Professional Skilled Services: Special Services and Community Resources: Sensory Deficits: Performed by: Rema Ortiz-04/19/23 22:40:00 Lives In Apartment 04/20/23 Personal Care Provided Hair care, Partial bath, Shampoo 04/20/23 Current Home Treatments Blood glucose mo nitoring, Other: Insulin pump Home Equipment Other: Insulin pump Medications amLODIPine 5 mg oral tablet 5 mg = 1 tab, Oral, Daily, # 30 tab, 0 Refill(s) Start Date: 04/20/23 Status: Ordered aspirin 81 mg oral capsule 81 mg = 1 cap, Oral, Daily, 0 Refill(s) Start Date: 01/21/22 Status: Ordered carvedilol 6.25 mg oral tablet 6.25 mg = 1 tab, Oral, BID, 0 Refill(s) Start Date: 01/21/22 Status: Ordered citalopram 20 mg oral tablet 20 mg = 1 tab, Oral, Daily, # 30 tab, 0 Refill(s) Start Date: 01/21/22 Status: Ordered dabigatran 75 mg oral capsule 75 mg 1 cap, Oral, BID, # 60 cap, 0 Refill(s) Start Date: 02/21/22 Status: Ordered Entresto 49 mg-51 mg oral tablet 1 tab, Oral, BID, # 60 tab, 0 Refill(s) Start Date: 04/19/23 Status: Ordered ferrous gluconate 324 mg (38 mg elemental iron) oral tablet 324 mg = 1 tab, Oral, Daily, 0 Refill(s) Start Date: 04/20/23 Status: Ordered Jardiance 10 mg oral tablet 10 mg = 1 tab, Oral, Daily Start Date: 04/19/23 Status: Ordered levothyroxine 175 mcg (0.175 mg) oral tablet 175 mcg = 1 tab, Oral, Daily, # 30 tab, 0 Refill(s) Start Date: 04/20/23 Status: Ordered levothyroxine 25 mcg (0.025 mg) oral tablet 25 mcg = 1 tab, Oral, Mon/Fri, 2 days per week, # 30 tab, 0 Refill(s) Start Date: 04/20/23 Status: Ordered magnesium (as chloride)-calcium (as carbonate) 71 mg-118 mg oral delayed release tablet 2 tab, Oral, Daily, # 60 tab, 0 Refill(s) Start Date: 01/21/22 Status: Ordered NovoLOG See Instructions, pts own insulin pump, 0 Refill(s) Start Date: 01/21/22 Status: Ordered pantoprazole 40 mg oral delayed release tablet 40 mg = 1 tab, Oral, BID, 0 Refill(s) Start Date: 10/14/22 Status: Ordered rosuvastatin 10 mg oral tablet 10 mg = 1 tab, Oral, Daily, # 60 tab, 0 Refill(s) Start Date: 04/20/23 Status: Ordered Systane Complete Optimal Dry Eye Relief ophthalmic solution 1 drops, Eye-Both, 5 times per day, PRN as needed for dry eyes, 0 Refill(s) Start Date: 04/20/23 Status: Ordered Mental Status 04/21/23 Eye Opening Response Tay Spontaneous ly Best Verbal Response Tay Oriented Best Motor Response Le Grand Obeys comman ds Tay Coma Score 15 Problem List Condition Confirmation Course Effective Dates Status Health 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 Chronic kidney disease Confirmed Active COPD (chronic obstructive pulmonary disease) Confirmed Active Concussion Confirmed Active Depression Confirmed Active Diabetes Confirmed [...] conduit Completed Results Laboratory List Name Date Automated Diff 04/21/23 Basic Metabolic Panel (BMP) 04/21/23 CBC w/ Diff 04/21/23 Magnesium Level 04/21/23 Glucose POCT 04/20/23 Glucose POCT 04/20/23 Glucose POCT 04/20/23 Automated Diff 04/20/23 PTT 04/20/23 Troponin-I High Sensitivity (High Sensit ivityTroponin-I) 04/20/23 .Morphology (LTTL) 04/20/23 Basic Metabolic Panel (BMP) 04/20/23 CBC w/ Diff 04/20/23 Magnesium Level 04/20/23 Troponin-I High Sensitivity 04/20/23 PTT 04/20/23 Troponin-I High Sensitivity 04/20/23 Legionella Antigen Urine 04/19/23 Streptococcus Pneumoniae Antigen Urine Urinalysis Microscopic 04/19/23 Urinalysis with Micro if Indicated and C ulture if Indicated 04/19/23 BNP 04/19/23 CBC w/ Diff 04/19/23 Comprehensive Metabolic Panel (CMP) 04/19 Respiratory Panel 2.1 (BioFire) 04/19/23 Automated Diff 04/19/23 PT/ PTT 04/19/23 SARS-CoV-2 (Covid-19) AG (Jaclyn) POCT 01/31 Most recent to oldest [Reference Range]: 1 2 3 WBC [4.8-10.8 K/mcL] 5.2 K/mcL (04/21/23 4:30 AM) 5.5 K/mcL (04/20/23 5:30 AM) 5.5 K/mcL (04/19/23 3:16 PM) RBC [4.20-5.40 Million/mcL] 3.87 Million /mcL *LOW* (04/21/23 4:30 AM) 3.75 Million/mcL *LOW* (04/20/23 5:30 AM) 4.17 Million/mcL *LOW* (04/19/23 3:16 PM) Neutro Auto [42.2-75.2 %] 51.3 % (04/21/23 4:30 AM) 66.1 % (04/20/23 5:30 AM) 70.3 % (04/19/23 3:16 PM) Lymph Auto [20.5-51.1 %] 35.6 % (04/21/23 4:30 AM) 21.6 % (04/20/23 5:30 AM) 15.4 % *LOW* (04/19/23 3:16 PM) Mariposa Auto [1.7-9.3 %] 10.7 % *HI* (04/21/23 4:30 AM) 11.3 % *HI* (04/20/23 5:30 AM) 13.1 % *HI* (04/19/23 3:16 PM) Basophil Auto [0.0-0.8 %] 1.0 % *HI* (04/21/23 4:30 AM) 0.9 % *HI* (04/20/23 5:30 AM) 1.1 % *HI* (04/19/23 3:16 PM) Prothrombin Time [9.1-10.6 seconds] 10.4 seconds (04/19/23 2:29 PM) INR [0.9-1.1] 1.0 1 (04/19/23 2:29 PM) BUN [7-25 mg/dL] 32 mg/dL *HI* (04/21/23 4:30 AM) 28 mg/dL *HI* (04/20/23 5:30 AM) 25 mg/dL (04/19/23 3:16 PM) Glucose POC 115 *NA* (04/20/23 5:22 PM) 169 *NA* (04/20/23 2:13 PM) 167 *NA* (04/20/23 9:21 AM) UA Color [Yellow] Yellow (04/19/23 4:29 PM) UA WBC [0-3] 0-3 (04/19/23 4:29 PM) Glucose Level [70-109 mg/dL] 116 mg/dL *HI* (04/21/23 4:30 AM) 148 mg/dL *HI* (04/20/23 5:30 AM) 125 mg/dL *HI* (04/19/23 3:16 PM) Potassium Level [3.5-5.1 mmol/L] 3.8 mmol/L (04/21/23 4:30 AM) 4.3 mmol/L (04/20/23 5:30 AM) 4.3 mmol/L (04/19/23 3:16 PM) Baso Absolute [0.0-0.2 K/mcL] 0.1 K/mcL (04/21/23 4:30 AM) 0.1 K/mcL (04/19/23 3:16 PM) Baso Absolute [0.00-0.20 K/mcL] 0.00 K/mcL (04/20/23 5:30 AM) MCV [81.0-99.0 fL] 99.9 fL *HI* (04/21/23 4:30 AM) 100.6 fL *HI* (04/20/23 5:30 AM) 98.9 fL (04/19/23 3:16 PM) UA Urobilinogen [0.2] 0.2 (04/19/23 4:29 PM) RBC Morph [Normal] Abnormal *ABN* (04/20/23 5:30 AM) UA Bili [Negative] Negative (04/19/23 4:29 PM) UA Ketones [Negative] 15 *ABN* (04/19/23 4:29 PM) Legionella Ag Ur [Negative] Negative (04/19/23 4:29 PM) AST [13-39 IntlUnit/L] 26 IntlUnit/L (04/19/23 3:16 PM) ALT [7-52 IntlUnit/L] 14 IntlUnit/L (04/19/23 3:16 PM) MCHC [32.0-37.0 g/dL] 32.1 g/dL (04/21/23 4:30 AM) 32.2 g/dL (04/20/23 5:30 AM) 32.9 g/dL (04/19/23 3:16 PM) Osmolality [275-295 mOsm/kg] 285 mOsm/kg (04/21/23 4:30 AM) 282 mOsm/kg (04/20/23 5:30 AM) 280 mOsm/kg (04/19/23 3:16 PM) Sodium Level [136-145 mmol/L] 139 mmol/L (04/21/23 4:30 AM) 137 mmol/L (04/20/23 5:30 AM) 137 mmol/L (04/19/23 3:16 PM) UA RBC [0-3] 0-3 (04/19/23 4:29 PM) UA Leuk Est [Negative] Negative (04/19/23 4:29 PM) Lymph Absolute [1.2-3.4 K/mcL] 1.9 K/mcL (04/21/23 4:30 AM) 1.2 K/mcL (04/20/23 5:30 AM) 0.8 K/mcL *LOW* (04/19/23 3:16 PM) UA Nitrite [Negative] Negative (04/19/23 4:29 PM) UA Glucose [Negative] >=1000 *ABN* (04/19/23 4:29 PM) Hct [37.0-47.0 %] 38.6 % (04/21/23 4:30 AM) 37.7 % (04/20/23 5:30 AM) 41.2 % (04/19/23 3:16 PM) Partial Thromboplastin Time [21.3-28.4 seconds] 47.0 seconds 2 *HI* (04/20/23 8:55 AM) 54.9 seconds 3 *CRIT* (04/20/23 1:45 AM) 38.0 seconds *HI* (04/19/23 2:29 PM) Calcium Level [8.6-10.3 mg/dL] 8.8 mg/dL (04/21/23 4:30 AM) 8.6 mg/dL (04/20/23 5:30 AM) 9.1 mg/dL (04/19/23 3:16 PM) Mariposa Absolute [0.1-0.6 K/mcL] 0.6 K/mcL (04/21/23 4:30 AM) 0.6 K/mcL (04/20/23 5:30 AM) 0.7 K/mcL *HI* (04/19/23 3:16 PM) Albumin Level [3.5-5.7 g/dL] 3.8 g/dL (04/19/23 3:16 PM) Protein Total [6.4-8.9 g/dL] 7.2 g/dL (04/19/23 3:16 PM) UA Protein [Negative] 100 *ABN* (04/19/23 4:29 PM) MCH [27.0-31.0 pg] 32.1 pg *HI* (04/21/23 4:30 AM) 32.4 pg *HI* (04/20/23 5:30 AM) 32.6 pg *HI* (04/19/23 3:16 PM) Magnesium Level [1.9-2.7 mg/dL] 2.1 mg/dL (04/21/23 4:30 AM) 2.2 mg/dL (04/20/23 5:30 AM) Neutro Absolute [1.4-6.5 K/mcL] 2.7 K/mcL (04/21/23 4:30 AM) 3.6 K/mcL (04/20/23 5:30 AM) 3.9 K/mcL (04/19/23 3:16 PM) Bilirubin Total [0.3-1.0 mg/dL] 0.7 mg/dL (04/19/23 3:16 PM) Hgb [12.0-16.0 g/dL] 12.4 g/dL (04/21/23 4:30 AM) 12.2 g/dL (04/20/23 5:30 AM) 13.6 g/dL (04/19/23 3:16 PM) Alk Phos [34-104 IntlUnit/L] 110 IntlUni t/L *HI* (04/19/23 3:16 PM) UA Blood [Negative] Moderate *ABN* (04/19/23 4:29 PM) MPV [7.4-10.4 fL] 8.1 fL (04/21/23 4:30 AM) 8.4 fL (04/20/23 5:30 AM) 8.2 fL (04/19/23 3:16 PM) UA Spec Grav [1.001-1.030] 1.015 (04/19/23 4:29 PM) Platelets [130-400 K/mcL] 180 K/mcL (04/21/23 4:30 AM) 185 K/mcL (04/20/23 5:30 AM) 211 K/mcL (04/19/23 3:16 PM) CO2 [21-31 mmol/L] 28 mmol/L (04/21/23 4:30 AM) 26 mmol/L (04/20/23 5:30 AM) 27 mmol/L (04/19/23 3:16 PM) Eos Absolute [0.0-0.2 K/mcL] 0.1 K/mcL (04/21/23 4:30 AM) 0.0 K/mcL (04/20/23 5:30 AM) 0.0 K/mcL (04/19/23 3:16 PM) Macrocyte 1+ *ABN* (04/20/23 5:30 AM) UA pH [5.00-9.00] 6.50 (04/19/23 4:29 PM) BNP [<=100 pg/mL] 1183 pg/mL *HI* (04/19/23 3:16 PM) UA Appear [Clear] Clear (04/19/23 4:29 PM) Chloride Level [98-107 mmol/L] 102 mmol/L (04/21/23 4:30 AM) 103 mmol/L (04/20/23 5:30 AM) 101 mmol/L (04/19/23 3:16 PM) RDW-CV [11.5-14.5 %] 15.2 % *HI* (04/21/23 4:30 AM) 15.6 % *HI* (04/20/23 5:30 AM) 15.5 % *HI* (04/19/23 3:16 PM) Adenovirus RespP-BFire [Not Detected] Not Detected (04/19/23 3:16 PM) Bordetella parapertussis RespP-BFire [Not Detected] Not Detected (04/19/23 3:16 PM) Bordetella pertussis RespP-BFire [Not Detected] Not Detected (04/19/23 3:16 PM) Chlamydophila pneumoniae RespP-BFire [Not Detected] Not Detected (04/19/23 3:16 PM) Coronavirus 229E (Not COVID-19) RP-BFire [Not Detected] Not Detected (04/19/23 3:16 PM) Coronavirus HKU1 (Not COVID-19) RP-BFire [Not Detected] Not Detected (04/19/23 3:16 PM) Coronavirus NL63 (Not COVID-19) RP-BFire [Not Detected] Not Detected (04/19/23 3:16 PM) Coronavirus OC43 (Not COVID-19) RP-BFire [Not Detected] Detected *ABN* (04/19/23 3:16 PM) Human Metapneumonovirus RespP-BFire [Not Detected] Not Detected (04/19/23 3:16 PM) Human Rhinovirus/Enterovirus RespP-BFir [Not Detected] Not Detected (04/19/23 3:16 PM) Influenza A RespP-BFire [Not Detected] Not Detected (04/19/23 3:16 PM) Influenza B RespP-BFire [Not Detected] Not Detected (04/19/23 3:16 PM) Mycomplasma pneumoniae RespP-BFire [Not Detected] Not Detected (04/19/23 3:16 PM) Parainfluenza Virus 1 RespP-BFire [Not Detected] Not Detected (04/19/23 3:16 PM) Parainfluenza Virus 2 RespP-BFire [Not Detected] Not Detected (04/19/23 3:16 PM) Parainfluenza Virus 3 RespP-BFire [Not Detected] Not Detected (04/19/23 3:16 PM) Parainfluenza Virus 4 RespP-BFire [Not Detected] Not Detected (04/19/23 3:16 PM) Respiratory Syncytial Virus RespP-BFire [Not Detected] Not Detected (04/19/23 3:16 PM) A/G Ratio [1.0-2.5 g/dL] 1.1 g/dL (04/19/23 3:16 PM) BUN/Creat Ratio [8.0-20.0] 17.8 (04/21/23 4:30 AM) 14.0 (04/20/23 5:30 AM) 13.2 (04/19/23 3:16 PM) Globulin [2.3-3.5 g/dL] 3.4 g/dL (04/19/23 3:16 PM) Slide Review Morph Only (04/20/23 5:30 AM) UA Culture Ind?. [No] No (04/19/23 4:29 PM) Urine Srce Clean Catch (04/19/23 4:29 PM) Creatinine Level [0.60-1.20 mg/dL] 1.80 mg/dL *HI* (04/21/23 4:30 AM) 2.00 mg/dL *HI* (04/20/23 5:30 AM) 1.90 mg/dL *HI* (04/19/23 3:16 PM) SARS-CoV-2 (COVID-19) RP-BFire [Not Detected] Not Detected (04/19/23 3:16 PM) Plt Estimation Normal (04/20/23 5:30 AM) SARS-CoV or CoV-2 (COVID-19) Ag (Jaclyn) [Negative] Negative (04/19/23 2:27 PM) Employed in healthcare? No *NA* (04/19/23 3:16 PM) Unknown *NA* (04/19/23 2:27 PM) Symptomatic as defined by CDC? No *NA* (04/19/23 3:16 PM) Unknown *NA* (04/19/23 2:27 PM) Date of onset (Lab) Unknown *NA* (04/19/23 2:27 PM) Hospitalized due to COVID-19? No *NA* (04/19/23 3:16 PM) Unknown *NA* (04/19/23 2:27 PM) In ICU? No *NA* (04/19/23 3:16 PM) Unknown *NA* (04/19/23 2:27 PM) Group care resident? No *NA* (04/19/23 3:16 PM) Unknown *NA* (04/19/23 2:27 PM) status? Unknown *NA* (04/19/23 3:16 PM) Unknown *NA* (04/19/23 2:27 PM) Troponin-I HS [<=12 ng/L] 2470 ng/L 4, 5 *CRIT* (04/20/23 8:55 AM) 3001 ng/L 6, 7 *CRIT* (04/20/23 5:30 AM) 2889 ng/L 8, 9 *CRIT* (04/20/23 1:45 AM) Anion Gap [3.0-12.0] 9.0 (04/21/23 4:30 AM) 8.0 (04/20/23 5:30 AM) 9.0 (04/19/23 3:16 PM) Eos, Auto [0.00-3.00 %] 1.40 % (04/21/23 4:30 AM) 0.10 % (04/20/23 5:30 AM) 0.10 % (04/19/23 3:16 PM) Streptococcus Pneumonia Antigen [Negative] Negative (04/19/23 4:29 PM) eGFR CKD-EPI [>=60 mL/min/1.73 m2] 31 mL/min/1.73 m2 *LOW* (04/21/23 4:30 AM) 27 mL/min/1.73 m2 *LOW* (04/20/23 5:30 AM) 29 mL/min/1.73 m2 *LOW* (04/19/23 3:16 PM) 1Interpretive Data: THERAPEUTIC INR RANGES FOR WARFARIN Uncomplicated venous thromboembolic disease 2-3 Lupus Anticoagulant and recurrent thrombosis 3-3.5 Mechanical prosthetic valve or recurrent thrombosis 2.5-3.5 2Result Comment: Results verified by repeat analysis. 3Result Comment: verified by repeat analysis called to and read back by Toni Estrada at 0227/rp 4Interpretive Data: The Lnoi ACCESS high-sensitivity Troponin I (hsTNI) 99 percentile cutoffs forhealthy adults are 12 ng/L or less for females and 20 ng/L or less for males. SERIAL MEASUREMENT IS HIGHLY RECOMMENDED for the diagnosis or exclusion of Acute Coronary Syndromes(ACS). Please refer to the High-Sensitivity Troponin Algorithm 2023 for guidance. As with all markers of cardiac injury, elevations of hsTnI do not in and of themselves indicate thepresence of an ischemic mechanism. Many other disease states can be associated with elevations via mechanisms different from those that cause injury in patients with ACS. These include trauma (contusion, ablation, pacing); congestive heart failure; pulmonary embolism; kidney failure; and myocarditis. Clinical judgement is necessary to distinguish patients who have ischemic heart disease from those who do not. 5Result Comment: Previously called 6Result Comment: consistent with previous value 7Interpretive Data: The Loni ACCESS high-sensitivity Troponin I (hsTNI) 99 percentile cutoffs forhealthy adults are 12 ng/L or less for females and 20 ng/L or less for males. SERIAL MEASUREMENT IS HIGHLY RECOMMENDED for the diagnosis or exclusion of Acute Coronary Syndromes(ACS). Please refer to the High-Sensitivity Troponin Algorithm 2022 for guidance. As with all markers of cardiac injury, elevations of hsTnI do not in and of themselves indicate thepresence of an ischemic mechanism. Many other disease states can be associated with elevations via mechanisms different from those that cause injury in patients with ACS. These include trauma (contusion, ablation, pacing); congestive heart failure; pulmonary embolism; kidney failure; and myocarditis. Clinical judgement is necessary to distinguish patients who have ischemic heart disease from those who do not. 8Result Comment: consistent with previous value 9Interpretive Data: The Loni ACCESS high-sensitivity Troponin I (hsTNI) 99 percentile cutoffs forhealthy adults are 12 ng/L or less for females and 20 ng/L or less for males. SERIAL MEASUREMENT IS HIGHLY RECOMMENDED for the diagnosis or exclusion of Acute Coronary Syndromes(ACS). Please refer to the High-Sensitivity Troponin Algorithm 202 for guidance. As with all markers of cardiac injury, elevations of hsTnI do not in and of themselves indicate thepresence of an ischemic mechanism. Many other disease states can be associated with elevations via mechanisms different from those that cause injury in patients with ACS. These include trauma (contusion, ablation, pacing); congestive heart failure; pulmonary embolism; kidney failure; and myocarditis. Clinical judgement is necessary to distinguish patients who have ischemic heart disease from those who do not. Radiology Reports * Exam Date Time Procedure Performing Provider Status 04/19/23 2:41 PM XR Chest 1 View Romi Gil; Au th (Verified) Notes: (XR Chest 1 View) Reason For Exam: Shortness of breath XR Chest 1 View EXAM DESCRIPTION: XR Chest 1 View 04/19/2023 INDICATION: SHORTNESS OF BREATH COMPARISON: 09/25/2016 IMPRESSION: Patchy infiltrate in the right lung base suspicious for pneumonia. Mild left basilar infiltrate cannot be excluded. Lungs otherwise clear with no focal infiltrate or pulmonary edema Normal cardiomediastinal contour. No significant pleural effusion or pneumothorax. Spondylotic changes of the dorsal spine. JOB #: [id number] Final Signed by: Walter Carter MD Signed (Electronic Signature): 04/19/2023 2:45 pm Vital Signs Most recent to oldest [Reference Range]: 1 2 3 Temperature Temporal Artery [36-38 Deg C] 36.5 Deg C (04/21/23 4:31 AM) 36.5 Deg C (04/21/23 12:09 AM) 36.6 Deg C (04/20/23 4:00 PM) Peripheral Pulse Rate [60-100 bpm] 61 bpm (04/21/23 6:04 AM) 67 bpm (04/21/23 5:03 AM) 63 bpm (04/21/23 4:31 AM) Heart Rate Monitored [60-100 bpm] 76 bpm (04/21/23 7:00 AM) 61 bpm (04/21/23 6:04 AM) 66 bpm (04/21/23 5:03 AM) Respiratory Rate [12-24 br/min] 15 br/min (04/21/23 7:00 AM) 19 br/min (04/21/23 6:04 AM) 33 br/min *HI* (04/21/23 5:03 AM) Blood Pressure [90-140/60-90 mmHg] 173/75mmHg *HI* (04/21/23 7:00 AM) 158/54mmHg *HI* (04/21/23 6:04 AM) 162/56mmHg *HI* (04/21/23 5:03 AM) Mean Arterial Pressure, Cuff [70-110 mmHg] 108 mmHg (04/21/23 7:00 AM) 89 mmHg (04/21/23 6:04 AM) 89 mmHg (04/21/23 6:04 AM) Mean Arterial Pressure Cuff 103 mmHg (04/21/23 7:00 AM) 79 mmHg (04/21/23 6:04 AM) 85 mmHg (04/21/23 5:03 AM) Blood Pressure Location Right arm (04/20/23 8:00 AM) Weight 74 kg (04/19/23 11:36 PM) 74 kg (04/19/23 1:54 PM) Weight Dosing 74.000 kg (04/19/23 1:54 PM) Height 168 cm (04/19/23 11:36 PM) 168 cm (04/19/23 1:54 PM) BSA Measured 1.86 m2 (04/19/23 11:36 PM) BSA Estimated 0 m2 (04/19/23 11:36 PM) Body Mass Index 26.22 kg/m2 (04/19/23 11:36 PM) 26.22 kg/m2 (04/19/23 1:54 PM) Social History Social History Type Response Tobacco Current some day tob acco user Tobacco Use:. 3 per day. Sex Pharmacology Note * Jas Minor: PERFORM Event Display: Pharmacy Note Authored Date: [id number] med hx via SS and pt interview. pt appears good hx. note pt does wear own insulin pump. Physician Emergency department Note * GENTRY Watt: PERFORM, MODIFY, MODIFY Event Display: ED Note Physician Authored Date: [id number] SEAN BRANCH :1960 Age:62 years Sex:Female Visit Date:04/19/2023 Primary Care Physician: ZOFIA JEAN-BAPTISTE Basic Information Time Seen: GENTRY Watt / 04/19/2023 14:03 Chief Complaint Pt arrives with complaints of SOB, orthopnea, congestion and cough that has lasted for about 1 week. Pt states she was dry heaving last night. History Of Present Illness: Patient is 62-year-old female presents emergency department with shortness of breath that has been worsening over the last week and a half. ??She notes that??she has COPD and although she quit smoking several years ago she returned??to smoking several months ago. Patient has??had increased shortness of breath over the last few days??culminating today with??cough, weakness and shortness of breath.?? At this time??she states that she waited too long to come in and feels as though now she needs intervention.?? She does not typically wear oxygen at home she hasmultiple inhalers for COPD??has had no fever or chills but does note significant difficulty breathing and??decreased??activity tolerance. Review of Systems: See HPI Physical Exam Vitals & Measurements T:??36.4?C ??(Temporal Artery)?? HR:??73??(Peripheral)?? RR:??24?? BP:??160/52?? SpO2:??97%?? HT:??168??cm?? WT:??74??kg?? BMI:??26.22?? Pain Score:??5?? O2 Flow Rate:??4?? O2 Therapy:??Nasal cannula?? Patient alert oriented age-appropriate well-nourished nontoxic Normocephalic atraumatic Neck supple nontender EOM intact, PERRLA, sclera nonicteric Decreased breath sounds throughout, wheeze in the right??lung leary throughout Regular rate and rhythm no murmurs Appropriate mood and affect Medical Decision Making: While here in the emerged part patient was evaluated and initially came into the emergency department at??70% on room air.?? She was then placed on nasal cannula??and corrected to 92-94.?? At this time??patient was placed on oxygen and feels significantly better. ??Laboratory evaluation is as below.?? Patient's chest x-ray did look like a pneumonia and she was started on ceftriaxone and doxycycline.?? Due to her new onset oxygen demand as well as the pneumonia I feel prudent to admit the patient for observation and further evaluation. After initial dictation patient was found to have a troponin of 1700 with a delta 1 hour of??2200.?? With this change I discussed with cardiology Dr. Malik??who did not feel that the patient needed to transfer??and that??she needed to be treated for her??upper respiratory/COPD exacerbation??and??follow- up??with cardiology studies.?? He was not concerned??with the??delta??I did not feel that urgent transfer was necessary. ?? I spoke to our hospitalist who had some concern??over the fact that we do not have echo??available to us until Monday??and??in the absence of this it is difficult to fully diagnose a type II NSTEMI. It is his recommendation that we??contact other hospitals??and have contacted??[facility] was unavailable for transfer, [facility], [facility], [place], [place]??who all had no bed availability. 1899 at the request of our hospitalist group I did get a third troponin and await this at this time Third troponin came back elevated at 2900??and??it was the request that further attempts will be made All told I called the [facility], [place], [facility], [facility],?? [place], , [facility],??[facility]', [facility], [facility], [place] All had no availability??and were not listing I did reach back out to Dr. Malik to see if [facility] would be listing??for tomorrow??however unfortunately due to their ED volume they are not listing??for transfers tomorrow. I once again spoke to our hospitalist who??felt that without an accepting physician there was??someconcern however due to??inability to transfer the patient he will admit the patient and??will attempt to get her transferred??in daylight hours I relayed all this to patient who felt??significantly anxious about all this??is required a small amount of Ativan to help with this.?? Patient was fed while here in the emergency department and??wasable??attended to by nursing staff appropriately. At??2100 patient was excepted by however hospitalist group. ??[facility]??and??will be admitted Procedure No Qualifying Data Assessment/Plan Ordered: BNP, Blood, Stat, 04/19/23 14:29:00 EST, Once, Nurse collect Comprehensive Metabolic Panel, Blood, Stat, 04/19/23 14:29:00 EST, Once, Nurse collect CV Electrocardiogram 12 Lead, 04/19/23 15:30:00 EST, Routine, Reason: Chest Pain, Stop date and time 04/19/23 15:30:00 EST, [id number], Karen's Internal Person Id Respiratory Panel 2.1 ([employer]), Nasopharyngeal Swab, Stat Collect, 04/19/23 14:30:00 EST, Once, Nurse collect, Print Label, No, No, No, No, No, Unknown Troponin-I High Sensitivity, Blood, Stat, 04/19/23 14:29:00 EST, Once, Nurse collect Troponin-I High Sensitivity, Blood, Stat, 04/19/23 15:29:00 EST, Once, Nurse collect Urinalysis with Micro if Indicated and Culture if Indicated, Urine, Stat Collect, 04/19/23 14:29:00EST, Once, Nurse collect, Print Label Medication Reconciliation Unchanged aspirin (aspirin 81 mg oral capsule) ?? calcium carbonate-magnesium chloride (magnesium (as chloride)-calcium (as carbonate) 71 mg-118 mg oral delayed release tablet)2 tab Oral (given by mouth) every day. ?? carvedilol (carvedilol 6.25 mg oral tablet) ?? chlorthalidone (chlorthalidone 25 mg oral tablet) ?? citalopram (citalopram 20 mg oral tablet)1 tab Oral (given by mouth) every day. ?? dabigatran (dabigatran 75 mg oral capsule)1 Capsules Oral (given by mouth) 2 times a day. ?? dabigatran (Pradaxa 150 mg oral capsule)1 Capsules Oral (given by mouth) 2 times a day. ?? empagliflozin (Jardiance 10 mg oral tablet)TAKE ONE TABLET BY MOUTH EVERY DAY. ?? ferrous sulfate (FeroSul 325 mg (65 mg elemental iron) oral tablet) ?? insulin aspart (NovoLOG) ?? levothyroxine (levothyroxine 150 mcg (0.15 mg) oral capsule) ?? losartan (losartan 100 mg oral tablet) ?? pantoprazole (pantoprazole 40 mg oral delayed release tablet) ?? rosuvastatin (rosuvastatin 5 mg oral capsule) ?? sacubitril-valsartan (Entresto 49 mg-51 mg oral tablet)1 tab Oral (given by mouth) 2 times a day. Problem List/Past Medical History Ongoing Lopez's esophagus Chronic kidney disease Claudication Concussion COPD (chronic obstructive pulmonary disease) COVID-19 Depression Diabetes DJD (degenerative joint disease) Dysphagia ETD (eustachian tube dysfunction) Femoral-popliteal bypass graft occlusion Hematochezia History of heart artery stent Hypertension Hypoglycemia Hypothyroid Lung nodule Malignant melanoma MANISH (obstructive sleep apnea) PVD (pulmonary valve disease) Tobacco user Historical COPD exacerbation Procedure/Surgical History ???Placement of stent in cardiac conduit Medication Administration Given cefTRIAXone, 1 g, IV Piggyback doxycycline, 100 mg, Oral Allergies sulfa drugs penicillin Social History Alcohol Current, 1-2 times per week Electronic Cigarette/Vaping Electronic Cigarette Use: Never. Substance Use Never Tobacco Current some day tobacco user Tobacco Use:. 3 per day. Diagnostic Results XR Chest 1 View 04/19/2023 14:47 EST XR Chest 1 View ?? 04/19/23 14:45:14 EXAM DESCRIPTION: XR Chest 1 View ?? 04/19/2023 ?? INDICATION: SHORTNESS OF BREATH ?? COMPARISON: 09/25/2016 ?? IMPRESSION: Patchy infiltrate in the right lung base suspicious for pneumonia. Mild left basilar infiltrate cannot be excluded. Lungs otherwise clear with no focal infiltrate or pulmonary edema ?? Normal cardiomediastinal contour. ?? No significant pleural effusion or pneumothorax. ?? Spondylotic changes of the dorsal spine. ? JOB #: [id number] Electronically Signed By: ?? Signed By: Walter Carter MD Lab Results CBC and Differential?? LATEST RESULTS?? HISTORICAL RESULTS?? WBC?? 04/19/23 15:16?? 5.5?? 05/05/22?? 5.6?? RBC?? 04/19/23 15:16?? 4.17 ??Low?? 05/05/22?? 4.27?? Hgb?? 04/19/23 15:16?? 13.6?? 05/05/22?? 13.6?? Hct?? 04/19/23 15:16?? 41.2?? 05/05/22?? 41.7?? MCV?? 04/19/23 15:16?? 98.9?? 05/05/22?? 97.7?? MCH?? 04/19/23 15:16?? 32.6 ??High?? 05/05/22?? 31.9 ??High?? MCHC?? 04/19/23 15:16?? 32.9?? 05/05/22?? 32.6?? RDW-CV?? 04/19/23 15:16?? 15.5 ??High?? 05/05/22?? 13.4?? Platelets?? 04/19/23 15:16?? 211?? 05/05/22?? 216?? MPV?? 04/19/23 15:16?? 8.2?? 05/05/22?? 10.2?? Neutro Auto?? 04/19/23 15:16?? 70.3? Lymph Auto?? 04/19/23 15:16?? 15.4 ??Low? [place] Auto?? 04/19/23 15:16?? 13.1 ??High? Eos, Auto?? 04/19/23 15:16?? 0.10? Basophil Auto?? 04/19/23 15:16?? 1.1 ??High? Neutro Absolute?? 04/19/23 15:16?? 3.9? Lymph Absolute?? 04/19/23 15:16?? 0.8 ??Low? [place] Absolute?? 04/19/23 15:16?? 0.7 ??High? Eos Absolute?? 04/19/23 15:16?? 0.0? Baso Absolute?? 04/19/23 15:16?? 0.1? Infectious Disease?? LATEST RESULTS?? SARS-CoV or CoV-2 (COVID-19) Ag (Jaclyn)?? 04/19/23 14:27?? Negative?? 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 04/19/23 14:27?? Unknown?? Symptomatic as defined by CDC??? 04/19/23 14:27?? Unknown?? Date of onset (Lab)?? 04/19/23 14:27?? Unknown?? Hospitalized due to COVID-19??? 04/19/23 14:27?? Unknown?? In ICU??? 04/19/23 14:27?? Unknown?? Group care resident??? 04/19/23 14:27?? Unknown?? status??? 04/19/23 14:27?? Unknown? Electronically Signed on 04/19/23 09:02 PM GENTRY Watt Progress note * Rambo New MD: PERFORM Event Display: Progress Note - Physician Authored Date: [id number] SEAN BRANCH :1960 Age:62 years Sex:Female Visit Date:04/19/2023 Primary Care Physician: ZOFIA JEAN-BAPTISTE Subjective pt with resolved cp after nitro Review of Systems Constitutional:??No fevers overnight Gastrointestinal:??No nausea, vomiting, diarrhea Musculoskeletal:??No new joint pain Objective Vitals & Measurements T:??36.6?C ??(Temporal Artery)?? TMIN:??36.4?C ??(Temporal Artery)?? TMAX:??36.7?C ??(Temporal Artery)?? HR:??73??(Peripheral)?? HR:??75??(Monitored)?? RR:??16?? BP:??147/51?? SpO2:??95%?? HT:??168??cm?? WT:??74??kg?? BMI:??26.22?? Pain Score:??0?? O2 Flow Rate:??3?? O2 Therapy:??Nasal cannula?? BSA:??1.86?? Physical Exam General:??Alert and oriented, No acute distress Eye:??PERRL, EOMI, normal conjunctiva Lungs:??Some mild??expiratory wheezing, Non-labored respiration Heart:??Normal rate, Normal rhythm, No murmur, No gallop Abdomen:??Soft, non-tender, non-distended, normal bowel sounds, no masses Diagnostic Results Medications (17) Active Scheduled: (11) Aspirin 81 mg EC Tab [LTTL] ??81 mg 1 tab, Oral, Daily Atorvastatin 10 mg Tab [LTTL] ??10 mg 1 tab, Oral, every evening Carvedilol 6.25 mg Tab [LTTL] ??6.25 mg 1 tab, Oral, BID cefTRIAXone ??1 g 50 mL, IV Piggyback, every 24 hr Citalopram 20 mg Tab [LTTL] ??20 mg 1 tab, Oral, Daily Dextrose 50% Inj 50 mL Syringe [LTTL] ??25 g 50 mL, IV Push, As Directed Doxycycline 100 mg Cap [LTTL] ??100 mg 1 cap, Oral, BID Empagliflozin 10 mg Tab [LTTL] ??10 mg 1 tab, Oral, Daily Glucagon 1 mg Inj ??[LTTL] ??1 mg 1 EA, Subcutaneous, As Directed Levothyroxine 150 mcg Tab [LTTL] ??150 mcg 1 tab, Oral, Daily Pantoprazole 40 mg Inj Vial [LTTL] ??40 mg 1 EA, IV Push, Daily Continuous: (2) heparin 25,000 units + Premix Diluent 500 mL ??500 mL, IV, 0 INSULIN PUMP - insulin aspart 22 units ??, Subcutaneous PRN: (4) Acetaminophen 325 mg Tab [LTTL] ??650 mg 2 tab, Oral, every 6 hr Albuterol-ipratropium Neb Isis 3 mL [LTTL] ??3 mL, Nebulized Inhalation, every 4 hr Guaifenesin 600 mg ER Tab [LTTL] ??600 mg 1 tab, Oral, BID Nitroglycerin 0.4 mg sublingual Tab [LTTL] ??0.4 mg 1 tab, Sublingual, every 5 min Assessment/Plan 1.??Elevated troponin??R79.89 Given the degree??of troponin and chest pain and known CAD this is concerning for type I NSTEMI, continue??aspirin and??heparin drip and statin??patient excepted??to [email or web address] for cardiology??awaiting bed. Ordered: nitroglycerin 0.4 mg sublingual tablet, 0.4 mg = 1 tab, Sublingual, Tab-SL, every 5 min for 3 doses, PRN chest pain, First Dose: 04/20/23 8:45:00 EST, Stop Date: Limited # of times, Physician Stop, Routine ?? 2.??Acute renal failure??N17.9 Really unknown creatinine??is we will have any levels in the past year??but concerning for acute kidney injury Ordered: nitroglycerin 0.4 mg sublingual tablet, 0.4 mg = 1 tab, Sublingual, Tab-SL, every 5 min for 3 doses, PRN chest pain, First Dose: 04/20/23 8:45:00 EST, Stop Date: Limited # of times, Physician Stop, Routine ?? 3.??Pneumonia??J18.9 Continue ceftriaxone and doxycycline??though how much of this??relates to CHF and??NSTEMI versus pneumonia is hard to tell Ordered: nitroglycerin 0.4 mg sublingual tablet, 0.4 mg = 1 tab, Sublingual, Tab-SL, every 5 min for 3 doses, PRN chest pain, First Dose: 04/20/23 8:45:00 EST, Stop Date: Limited # of times, Physician Stop, Routine ?? 4.??Diabetes type I??E10.9 Patient on insulin pump Ordered: nitroglycerin 0.4 mg sublingual tablet, 0.4 mg = 1 tab, Sublingual, Tab-SL, every 5 min for 3 doses, PRN chest pain, First Dose: 04/20/23 8:45:00 EST, Stop Date: Limited # of times, Physician Stop, Routine ?? 5.??History of heart artery stent??Z95.5 Stent placed about a year ago history of CHF with a EF of 30% ?? Orders: INSULIN PUMP - insulin aspart 22 units, Misc, Subcutaneous, 04/20/23 9:23:00 EST, kg, 1.86 m2, Constant Indicator PTT, Blood, Routine, 04/21/23 6:00:00 EST, Once, Lab Collect Electronically Signed on 04/20/23 03:56 PM Rmabo New MD * Event Display: Progress Note - Physician Authored Date: Attending Physician - Brief Progress Note PERMANENT 04/20/2023 11:55 [facility] - ICU SEAN BRANCH Date of Service 04/20/2023 11:55 HPI/Events of Note TeleICU Physician Note I established audio/visual connection with the patient's room, reviewed the EMR. Slight increased O2 requirement, now 5L NC CAMERA: alert, lying in bed talking on phone, NAD, normal WOB VS afebrile, HR 70s, SBP 140-150s, RR 25, SpO2 93% on 5L NC GTT: Heparin Net neg 1.38 L Labs notable for: WBC 5.5, Hgb 12.2, PLT 185, Cr 2.0 (from 1.9), BUN 28, TropI this morning at 0500of 3,001 -->2470 at 0900 CXR 04/19: read notes patchy infiltrates R lung base, possible infiltrate left base RVR 04/19: positive for coronavirus OC43 (NOT covid19) Meds notable for insulin pump, ceftriaxone IV, doxycycline po, lasix 80 IV x1 at 0900, nitroglycerin SL PRN, pantoprazole, carvedilol, duonebs, mucinex, 62 y/o woman with COPD, CAD s/p remote PCI, HFrEF (30%) and DM1, ongoing tobacco use admitted with progressive dyspnea, diagnosed with pneumonia, CHF exacerbation and NSTEMI. She is positive for a NON-covid coronavirus, which could be the trigger for her cardiopulmonary decompensation. Troponin haspeaked, and she is on a heparin gtt pending additional cardiac evaluation after respiratory status improves. Overall picture with absence of leukocytosis, normal HR, afebrile, slow onset of dyspnea is most suspicious for CHF exacerbation driving her hypoxic respiratory failure for which more aggressive diuersis would be helpful. She is high risk for ME, but thus far testing and consultation with cardiology have found evidence of NSTEMI without acute infarct. Agree with escalation of lasix today, s/p 80 IV this morning, suggest redosig in PM to achieve goalnet negative 1-2 L per 24 hours Reasonable to continue ceftriaxone and doxycycline for possibility of concurrent pneumonia. Continue hep gtt per cards recs. Unless contraindicated suggest restarting her home ASA 81 mg daily (appears per outpt list she takes ASA 81 and pradaxa) ECHO when possible (reportedly can't be done locally until Monday) Wean NC O2 for goal SpO2 >/=90 She is on her home insulin pump. Agree with possible transfer to cardiology at tertiary care hospital if/when bed is available If she develops chest pain low threshold to repeat EKG and trops; if EKG at any point demonstrates acute ST elevations would need to expedite transfer for cards workup. TeleICU will continue to follow Interventions Major-Respiratory failure - evaluation and management Intermediate-Infection - evaluation and management, Other: NSTEMI evaluation and management * Event Display: Progress Note - Physician Authored Date: [id number] [facility] Physician - Brief Progress Note PERMANENT 04/19/2023 23:55 [facility] - ICU SEAN BRANCH Date of Service 04/19/2023 23:55 HPI/Events of Note TeleICU Physician Note I established audio/visual connection with the patient's room, reviewed the EMR and discussed care with MARCELINA Coates. HPI: Patient is a 62 year old female with history of COPD, DM, HFrEF 30%, and CAD s/p PCI 3 years ago who presents with worsening shortness of breath and productive cough. On presentation she was hypoxia to the 70% requiring 2 liters NC. CXR showed patchy alveolar filling process. Labs notable for troponin 1735 - > 2214 -> 2972. [facility] [place] cardiology consulted and recommended PNA treatment. Started on heparin gtt and CAP coverage. Admitted to ICU for further management. Camera: Not in acute distress Labs: Troponin 1735 -> 2214 -> 2972 Cr 1.90 BNP 1183 A/P: # NSTEMI -- Secondary to type I vs II -- On heparin gtt -- On lipitor -- Recommend ASA -- Check TTE -- On coreg -- Recommend cardiology consultation # Acute on chronic HFrEF exacerbation -- Recommend gentle diuresis to seek net negative fluid balance -- Strict I/O -- Low Na diet # PNA -- On CAP coverage -- Recommend checking urinary legionella/strep -- Follow up cx Tele ICU will continue to follow. Interventions Intermediate-Other: NSTEMI History and physical note * Jaxon Rollins APRN: MODIFY, MODIFY, MODIFY, PERFORM Event Display: History and Physical Authored Date: [id number] SEAN BRANCH :1960 Age:62 years Sex:Female Visit Date:04/19/2023 Primary Care Physician: ZOFIA JEAN-BAPTISTE Chief Complaint Pt arrives with complaints of SOB, orthopnea, congestion and cough that has lasted for about 1 week. Pt states she was dry heaving last night. History of Present Illness 62 yr old female with pmhx of COPD not on home O2, HTN, DM type 1, CAD with stenting done 3 yrs ago, CHF with EF 30% as of 2022 coming in for sob. She says she had been short of breath fro weeks but tonight it was just worse and came to the ER. She had used her inhalers with minimal effect. She still smokes cigarettes almost daily. She has constant productive cough of white sputum. . At the ED her sat was 70% on RA improved to 92-94% on 2L nc. chest xray showed?? patchy infiltrates concerning for??pneumonia, no pleural effusion or edema. She was started on ceftriaxone and doxycycline. Her troponins however were high at 1735, 2214 , 2972. Initially [facility] cardiology was called after the first two troponins and they think its just demand ischemia form pneumonia/COPD and there is no urgent need for transfer. Later third troponin also elevated at 2900, called back [facility] and agreed to have pt on heparin drip but still no bed availability.Asked to check again in am.??Other hospitals in the area including up to [place], [place] and [place] but still no beds. It is difficult at this time to??diagnose NSTEMI type II here since echo is not available until Monday. Explained to the patient that she will be admitted but it is not ideal for her to be kept here and she is better off in a tertiary hospital for higher level of care. Pt verbalizes understanding and is willing to stay. She denies chest pain, palpitations, dizziness/lightheadeness,?? fever,??nausea, vomiting , diarrhea. Review of Systems Constitutional: No fevers, chills, sweats Eye: No recent visual problems ENT: No ear pain, +??nasal congestion,?? no sore throat Respiratory:??+ shortness of breath, cough Cardiovascular: No Chest pain, palpitations, syncope Gastrointestinal: No nausea, vomiting, diarrhea Genitourinary: No hematuria Maxim/Lymph: Negative for bruising tendency, swollen lymph glands Endocrine: Negative for excessive thirst, excessive hunger Musculoskeletal: No back pain, neck pain, joint pain, muscle pain, decreased range of motion Integumentary: No rash, pruritus, abrasions Neurologic: Alert & oriented X 4 ?? Physical Exam Vitals & Measurements T:??36.5?C ??(Temporal Artery)?? TMIN:??36.4?C ??(Temporal Artery)?? TMAX:??36.5?C ??(Temporal Artery)?? HR:??83??(Peripheral)?? HR:??82??(Monitored)?? RR:??22?? BP:??137/95?? SpO2:??96%?? HT:??168??cm?? WT:??74??kg?? BMI:??26.22?? Pain Score:??5?? O2 Flow Rate:??4?? O2 Therapy:??Nasal cannula?? General: Alert and oriented, well nourished,?No??acute distress Eye: PERRL, EOMI,?Normal??conjunctiva HENT: Normocephalic, atraumatic Neck:?No??lymphadenopathy Lungs:??Clear??to auscultation ,?Non-labored?? respiration Heart:?Normal?? rate,?Regular??rhythm Abdomen: Soft, non-tender, non-distended,?Normal?? bowel sounds,?? Musculoskeletal:?Normal?? range of motion and strength,?No??tenderness,?No??swelling Skin: Skin is warm, dry and pink,?No??rashes,?No??lesions Neurologic: Awake, alert and oriented X4, CN II-XII intact Psychiatric: Cooperative, appropriate mood and affect Assessment/Plan 1.??Pneumonia??J18.9 ceftriaxone, doxycycline O2 support to maintain sats 90% and above urine strep antigen urine legionella antigen ?? 2.??COPD without exacerbation??J44.9 no wheezing, feels more comfortable now with just O2 prn dounebs ordered ? 3.??HTN (hypertension)??I10 carvedilol 6.25mg po bid chlorthalidone on hold for jenna entresto on hold for ejnna ?? 4.??CHF (congestive heart failure)??I50.9 looks euvolemic holding chlorthalidone for now for jenna ?? 5.??Elevated troponin??R79.89 no chest pain heparin drip not likely acs per [facility] [place] but willing to take patient if there is bed available explained to patient it is not ideal for her to stay here since we dont even have echo until Monday, she understands and willing to stay ? 6.??JENNA (acute kidney injury)??N17.9 holding chlorthalidone and entresto encourage increased fluid intake ?? 7.??Diabetes type I??E10.9 has own insulin pump with monitor 8.??Hypothyroidism??E03.9 levothyroxine 150 mcg po daily ?? DVT prophylaxis: heparin ?? code status : full code Orders: Tylenol, 650 mg = 2 tab, Oral, Tab, every 6 hr for 30 days, PRN pain, First Dose: 04/19/23 21:50:00EST, Stop Date: 05/19/23 21:49:00 EST, Physician Stop, Routine atorvastatin, 10 mg = 1 tab, Oral, Tab, every evening for 30 days, First Dose: 04/20/23 21:00:00 EST, Stop Date: 05/20/23 20:59:00 EST, Physician Stop, Routine carvedilol, 6.25 mg = 1 tab, Oral, Tab, BID, First Dose: 04/19/23 22:00:00 EST, Routine cefTRIAXone, 1 g = 50 mL, IV Piggyback, Injection, every 24 hr, Antibiotic Indication Pneumonia- CAP, Administer over: 30 minutes, First Dose: 04/20/23 22:00:00 EST, Routine, 100 mL/hr citalopram, 20 mg = 1 tab, Oral, Tab, Daily, First Dose: 04/19/23 22:35:00 EST, Routine doxycycline, 100 mg = 1 cap, Oral, Cap, BID for 30 days, Antibiotic Indication Pneumonia, First Dose: 04/20/23 9:00:00 EST, Stop Date: 05/20/23 8:59:00 EST, Physician Stop, Routine empagliflozin, 10 mg = 1 tab, Oral, Tab, Daily, First Dose: 04/20/23 9:00:00 EST, Routine glucagon, 1 mg = 1 EA, Subcutaneous, Injection, As Directed, First Dose: 04/19/23 21:48:00 EST, Physician Stop, Routine Dextrose 50% injection, 25 g = 50 mL, IV Push, Injection, As Directed, First Dose: 04/19/23 21:48:00 EST, Physician Stop, Routine Mucinex, 600 mg = 1 tab, Oral, Tab-ER, BID for 30 days, PRN congestion, First Dose: 04/19/23 21:50:00 EST, Stop Date: 05/19/23 21:49:00 EST, Physician Stop, Routine ipratropium-albuterol 0.5 mg-2.5 mg/3 mL inhalation solution, 3 mL, Nebulized Inhalation, Soln, every 4 hr for 3 doses, PRN shortness of breath, First Dose: 04/19/23 21:49:00 EST, Stop Date: Limited # of times, Physician Stop, Routine levothyroxine, 150 mcg = 1 tab, Oral, Tab, Daily, First Dose: 04/20/23 6:30:00 EST, Routine Protonix, 40 mg = 1 EA, IV Push, Vial, Daily for 30 days, First Dose: 04/20/23 6:30:00 EST, Stop Date: 05/20/23 6:29:00 EST, Physician Stop, Routine Basic Metabolic Panel, Blood, Routine, 04/19/23 21:45:00 EST, Daily, for 3 days, Lab Collect Bedrest with Bathroom Privileges, 04/19/23 21:44:00 EST, Constant Order, 04/19/23 21:44:00 EST Blood Glucose POC - Interfaced, 04/20/23 7:30:00 EST, AC & bedtime CBC w/ Diff, Blood, Routine, 04/19/23 21:45:00 EST, Daily, for 3 days, Lab Collect Diet Order, 04/19/23 21:44:00 EST, Consistent Carbohydrates, Na: 2 g sodium Low risk VTE, 04/19/23 21:44:00 EST, Low risk, no mechanical VTE prophylaxis required Magnesium Level, Blood, Routine, 04/19/23 21:45:00 EST, Daily, for 3 days, Lab Collect Oxygen Therapy, SpO2 goal 90% or greater, Stop date 04/19/23 21:44:00 EST, Jaxon Colon, [employer] Patient Condition, 04/19/23 21:44:00 EST, Condition Guarded PSO Admit to Inpatient, ICU, Inpatient, 04/19/23 21:43:00 EST, 04/19/23 21:43:00 EST, 04/19/23 21:43:00 EST, 1 midnight or less PTT, Blood, Timed Study, 04/20/23 1:35:00 EST, Once, Lab Collect Resuscitation Status, 04/19/23 21:44:00 EST, Full Code Troponin-I High Sensitivity, Blood, Timed Study, 04/20/23 5:00:00 EST, Once, Lab Collect Troponin-I High Sensitivity, Blood, Timed Study, 04/20/23 0:00:00 EST, Once, Lab Collect Problem List/Past Medical History Ongoing Lopez's esophagus Chronic kidney disease Claudication Concussion COPD (chronic obstructive pulmonary disease) COVID-19 Depression Diabetes DJD (degenerative joint disease) Dysphagia ETD (eustachian tube dysfunction) Femoral-popliteal bypass graft occlusion Hematochezia History of heart artery stent Hypertension Hypoglycemia Hypothyroid Lung nodule Malignant melanoma MANISH (obstructive sleep apnea) PVD (pulmonary valve disease) Tobacco user Historical COPD exacerbation Procedure/Surgical History ???Placement of stent in cardiac conduit Medications Inpatient atorvastatin, 10 mg= 1 tab, Oral, every evening carvedilol, 6.25 mg= 1 tab, Oral, BID cefTRIAXone, 1 g= 50 mL, IV Piggyback, every 24 hr citalopram, 20 mg= 1 tab, Oral, Daily Dextrose 50% injection, 25 g= 50 mL, IV Push, As Directed doxycycline, 100 mg= 1 cap, Oral, BID empagliflozin, 10 mg= 1 tab, Oral, Daily glucagon, 1 mg= 1 EA, Subcutaneous, As Directed heparin IV additive 25,000 units [12 unit/kg/hr] + Premix Diluent 500 mL ipratropium-albuterol 0.5 mg-2.5 mg/3 mL inhalation solution, 3 mL, Nebulized Inhalation, every 4 hr, PRN levothyroxine, 150 mcg= 1 tab, Oral, Daily Mucinex, 600 mg= 1 tab, Oral, BID, PRN Protonix, 40 mg= 1 EA, IV Push, Daily Tylenol, 650 mg= 2 tab, Oral, every 6 hr, PRN Home aspirin 81 mg oral capsule carvedilol 6.25 mg oral tablet chlorthalidone 25 mg oral tablet citalopram 20 mg oral tablet, 20 mg= 1 tab, Oral, Daily dabigatran 75 mg oral capsule, 75 mg= 1 cap, Oral, BID Entresto 49 mg-51 mg oral tablet, 1 tab, Oral, BID FeroSul 325 mg (65 mg elemental iron) oral tablet Jardiance 10 mg oral tablet levothyroxine 150 mcg (0.15 mg) oral capsule losartan 100 mg oral tablet magnesium (as chloride)-calcium (as carbonate) 71 mg-118 mg oral delayed release tablet, 2 tab, Oral, Daily NovoLOG pantoprazole 40 mg oral delayed release tablet Pradaxa 150 mg oral capsule, 150 mg= 1 cap, Oral, BID rosuvastatin 5 mg oral capsule Allergies sulfa drugs penicillin Social History Alcohol Current, 1-2 times per week Electronic Cigarette/Vaping Electronic Cigarette Use: Never. Substance Use Never Tobacco Current some day tobacco user Tobacco Use:. 3 per day. Lab Results Test Name Test Result Date/Time WBC 5.5 K/mcL 04/19/2023 15:16 EST RBC 4.17 Million/mcL 04/19/2023 15:16 EST Hgb 13.6 g/dL 04/19/2023 15:16 EST Hct 41.2 % 04/19/2023 15:16 EST MCV 98.9 fL 04/19/2023 15:16 EST MCH 32.6 pg 04/19/2023 15:16 EST MCHC 32.9 g/dL 04/19/2023 15:16 EST RDW-CV 15.5 % 04/19/2023 15:16 EST Platelets 211 K/mcL 04/19/2023 15:16 EST MPV 8.2 fL 04/19/2023 15:16 EST Neutro Auto 70.3 % 04/19/2023 15:16 EST Lymph Auto 15.4 % 04/19/2023 15:16 EST [place] Auto 13.1 % 04/19/2023 15:16 EST Eos, Auto 0.10 % 04/19/2023 15:16 EST Basophil Auto 1.1 % 04/19/2023 15:16 EST Neutro Absolute 3.9 K/mcL 04/19/2023 15:16 EST Lymph Absolute 0.8 K/mcL 04/19/2023 15:16 EST [place] Absolute 0.7 K/mcL 04/19/2023 15:16 EST Eos Absolute 0.0 K/mcL 04/19/2023 15:16 EST Baso Absolute 0.1 K/mcL 04/19/2023 15:16 EST Prothrombin Time 10.4 seconds 04/19/2023 14:29 EST INR 1.0 04/19/2023 14:29 EST Partial Thromboplastin Time 38.0 seconds 04/19/2023 14:29 EST Sodium Level 137 mmol/L 04/19/2023 15:16 EST Potassium Level 4.3 mmol/L 04/19/2023 15:16 EST Chloride Level 101 mmol/L 04/19/2023 15:16 EST CO2 27 mmol/L 04/19/2023 15:16 EST Alk Phos 110 IntlUnit/L 04/19/2023 15:16 EST AST 26 IntlUnit/L 04/19/2023 15:16 EST ALT 14 IntlUnit/L 04/19/2023 15:16 EST BUN 25 mg/dL 04/19/2023 15:16 EST Glucose Level 125 mg/dL 04/19/2023 15:16 EST Creatinine Level 1.90 mg/dL 04/19/2023 15:16 EST BUN/Creat Ratio 13.2 04/19/2023 15:16 EST eGFR CKD-EPI 29 mL/min/1.73 m2 04/19/2023 15:16 EST Calcium Level 9.1 mg/dL 04/19/2023 15:16 EST Protein Total 7.2 g/dL 04/19/2023 15:16 EST Albumin Level 3.8 g/dL 04/19/2023 15:16 EST Globulin 3.4 g/dL 04/19/2023 15:16 EST A/G Ratio 1.1 g/dL 04/19/2023 15:16 EST Bilirubin Total 0.7 mg/dL 04/19/2023 15:16 EST Anion Gap 9.0 04/19/2023 15:16 EST Osmolality 280 mOsm/kg 04/19/2023 15:16 EST BNP 1183 pg/mL 04/19/2023 15:16 EST Troponin-I HS 2972 ng/L 04/19/2023 18:44 EST Troponin-I HS 2214 ng/L 04/19/2023 16:18 EST Troponin-I HS 1735 ng/L 04/19/2023 15:16 EST Urine Srce Clean Catch 04/19/2023 16:29 EST UA Color YELLOW. 04/19/2023 16:29 EST UA Appear CLEAR. 04/19/2023 16:29 EST UA Glucose >=1000 04/19/2023 16:29 EST UA Bili NEGATIVE 04/19/2023 16:29 EST UA Ketones 15 04/19/2023 16:29 EST UA Spec Grav 1.015 04/19/2023 16:29 EST UA Blood MODERATE Clinitek 04/19/2023 16:29 EST UA pH 6.50 04/19/2023 16:29 EST UA Protein 100 04/19/2023 16:29 EST UA Urobilinogen 0.2 04/19/2023 16:29 EST UA Nitrite NEGATIVE 04/19/2023 16:29 EST UA Leuk Est NEGATIVE 04/19/2023 16:29 EST UA Culture Ind?. No 04/19/2023 16:29 EST UA WBC 0-3 04/19/2023 16:29 EST UA RBC 0-3 04/19/2023 16:29 EST Adenovirus RespP-BFire Not Detected BF 04/19/2023 15:16 EST Bordetella parapertussis RespP-BFire Not Detect-BioFire 04/19/2023 15:16 EST Bordetella pertussis RespP-BFire Not Detect-BioFire 04/19/2023 15:16 EST Chlamydophila pneumoniae RespP-BFire Not Detect-BioFire 04/19/2023 15:16 EST Coronavirus 229E (Not COVID-19) RP-BFire Not Detect-BioFire 04/19/2023 15:16 EST Coronavirus HKU1 (Not COVID-19) RP-BFire Not Detect-BioFire 04/19/2023 15:16 EST Coronavirus NL63 (Not COVID-19) RP-BFire Not Detect-BioFire 04/19/2023 15:16 EST Coronavirus OC43 (Not COVID-19) RP-BFire Detect-BioFire 04/19/2023 15:16 EST SARS-CoV-2 (COVID-19) RP-BFire Not Detect-BioFire 04/19/2023 15:16 EST Human Metapneumonovirus RespP-BFire Not Detect-BioFire 04/19/2023 15:16 EST Human Rhinovirus/Enterovirus RespP-BFir Not Detect-BioFire 04/19/2023 15:16 EST Influenza A RespP-BFire Not Detect-BioFire 04/19/2023 15:16 EST Influenza B RespP-BFire Not Detect-BioFire 04/19/2023 15:16 EST Mycomplasma pneumoniae RespP-BFire Not Detect-BioFire 04/19/2023 15:16 EST Parainfluenza Virus 1 RespP-BFire Not Detect-BioFire 04/19/2023 15:16 EST Parainfluenza Virus 2 RespP-BFire Not Detect-BioFire 04/19/2023 15:16 EST Parainfluenza Virus 3 RespP-BFire Not Detect-BioFire 04/19/2023 15:16 EST Parainfluenza Virus 4 RespP-BFire Not Detect-BioFire 04/19/2023 15:16 EST Respiratory Syncytial Virus RespP-BFire Not Detect-BioFire 04/19/2023 15:16 EST SARS-CoV or CoV-2 (COVID-19) Ag (Jaclyn) Negative 04/19/2023 14:27 EST Employed in healthcare? No 04/19/2023 15:16 EST Employed in healthcare? Unknown 04/19/2023 14:27 EST Symptomatic as defined by CDC? No 04/19/2023 15:16 EST Symptomatic as defined by CDC? Unknown 04/19/2023 14:27 EST Date of onset (Lab) Unknown 04/19/2023 14:27 EST Hospitalized due to COVID-19? No 04/19/2023 15:16 EST Hospitalized due to COVID-19? Unknown 04/19/2023 14:27 EST In ICU? No 04/19/2023 15:16 EST In ICU? Unknown 04/19/2023 14:27 EST Group care resident? No 04/19/2023 15:16 EST Group care resident? Unknown 04/19/2023 14:27 EST status? Unknown 04/19/2023 15:16 EST status? Unknown 04/19/2023 14:27 EST Electronically Signed on 04/20/23 06:29 AM Jaxon Rollins APRN Discharge summary * Rambo New MD: PERFORM Event Display: Discharge Summary Authored Date: [id number] SEAN BRANCH :1960 Age:62 years Sex:Female Visit Date:04/19/2023 Primary Care Physician: ZOFIA JEAN-BAPTISTE Hospital Course 62-year-old female with known CAD with an RCA stent about a year ago, EF of around 30%??history of mild COPD never on oxygen, history of a tight LAD??at time of stenting presented to the hospital with??orthopnea shortness of breath chest pain as well as cough??with??some concern for pneumonia though no fevers chills or elevated white blood cell count??and markedly high troponin with a very high delta??rise as well.?? Concerning for type I NSTEMI and being excepted the??[email or web address] for further care ? 1.??Elevated troponin??R79.89 Given the degree??of troponin and chest pain and known CAD this is concerning for type I NSTEMI,??has been on??aspirin and??heparin drip and statin??here and accepted to [facility] [[email or web address]] for cardiology bed. ?? 2.??Acute renal failure??N17.9 Really unknown creatinine??is we will have any levels in the past year??but concerning for acute kidney injury ?? 3.??Pneumonia??J18.9 While here on ceftriaxone and doxycycline??though how much of this??relates to CHF and??NSTEMI versus pneumonia is hard to tell ?? 4.??Diabetes type I??E10.9 Patient on insulin pump ?? 5.??History of heart artery stent??Z95.5 Stent placed about a year ago history of CHF with a EF of 30% ?? She did get??80 mg IV Lasix here with??net -3 L in 1 day.?? She is still on 3 L of oxygen but down from 5 L. ?? Physical Exam Vitals & Measurements T:??36.6?C ??(Temporal Artery)?? TMIN:??36.4?C ??(Temporal Artery)?? TMAX:??36.7?C ??(Temporal Artery)?? HR:??73??(Peripheral)?? HR:??75??(Monitored)?? RR:??16?? BP:??147/51?? SpO2:??95%?? HT:??168??cm?? WT:??74??kg?? BMI:??26.22?? Pain Score:??0?? O2 Flow Rate:??3?? O2 Therapy:??Nasal cannula?? BSA:??1.86?? General:??[Alert and oriented, No acute distress] Eye: [PERRL, EOMI, normal conjunctiva] Lungs:??[mild wheezing,??Non-labored respiration] Heart:??[ Normal rate,??Normal rhythm,??No murmur, No gallop] Abdomen:??[Soft, non-tender, non-distended, normal bowel sounds, no masses] Procedure/Surgical History ???Placement of stent in cardiac conduit Social History Alcohol Current, 1-2 times per week Electronic Cigarette/Vaping Electronic Cigarette Use: Never. Home/Environment Lives with Alone. Living situation: Home/Independent. Home equipment: Insulin pump. Substance Use Never Tobacco Current some day tobacco user Tobacco Use:. 3 per day. Discharge Plan 1.??Elevated troponin??R79.89 Ordered: nitroglycerin 0.4 mg sublingual tablet, 0.4 mg = 1 tab, Sublingual, Tab-SL, every 5 min for 3 doses, PRN chest pain, First Dose: 04/20/23 8:45:00 EST, Stop Date: Limited # of times, Physician Stop, Routine Transfer to Another Facility, 04/20/23 16:15:00 EST ?? 2.??Acute renal failure??N17.9 Ordered: nitroglycerin 0.4 mg sublingual tablet, 0.4 mg = 1 tab, Sublingual, Tab-SL, every 5 min for 3 doses, PRN chest pain, First Dose: 04/20/23 8:45:00 EST, Stop Date: Limited # of times, Physician Stop, Routine Transfer to Another Facility, 04/20/23 16:15:00 EST ?? 3.??Pneumonia??J18.9 Ordered: nitroglycerin 0.4 mg sublingual tablet, 0.4 mg = 1 tab, Sublingual, Tab-SL, every 5 min for 3 doses, PRN chest pain, First Dose: 04/20/23 8:45:00 EST, Stop Date: Limited # of times, Physician Stop, Routine Transfer to Another Facility, 04/20/23 16:15:00 EST ?? 4.??Diabetes type I??E10.9 Ordered: nitroglycerin 0.4 mg sublingual tablet, 0.4 mg = 1 tab, Sublingual, Tab-SL, every 5 min for 3 doses, PRN chest pain, First Dose: 04/20/23 8:45:00 EST, Stop Date: Limited # of times, Physician Stop, Routine Transfer to Another Facility, 04/20/23 16:15:00 EST ?? 5.??History of heart artery stent??Z95.5 Ordered: Transfer to Another Facility, 04/20/23 16:15:00 EST ?? Orders: INSULIN PUMP - insulin aspart 22 units, Misc, Subcutaneous, 04/20/23 9:23:00 EST, kg, 1.86 m2, Constant Indicator Patient Isolation, 04/20/23 16:02:00 EST, Droplet, Please utilize droplet precuations while providing close patient care while patient is symptomatic. All Diagnoses This Visit Elevated troponin Acute renal failure Pneumonia Diabetes type I History of heart artery stent Medication Reconciliation Changed aspirin (aspirin 81 mg oral capsule)1 Capsules Oral (given by mouth) every day. ?? carvedilol (carvedilol 6.25 mg oral tablet)1 tab Oral (given by mouth) 2 times a day. ?? empagliflozin (Jardiance 10 mg oral tablet)1 tab Oral (given by mouth) every day. ?? levothyroxine (levothyroxine 175 mcg (0.175 mg) oral tablet)1 tab Oral (given by mouth) every day. ?? levothyroxine (levothyroxine 25 mcg (0.025 mg) oral tablet)1 tab Oral (given by mouth) Mon/Fri. 2 days per week. ?? rosuvastatin (rosuvastatin 10 mg oral tablet)1 tab Oral (given by mouth) every day. ?? Unchanged amLODIPine (amLODIPine 5 mg oral tablet)1 tab Oral (given by mouth) every day. ?? calcium carbonate-magnesium chloride (magnesium (as chloride)-calcium (as carbonate) 71 mg-118 mg oral delayed release tablet)2 tab Oral (given by mouth) every day. ?? citalopram (citalopram 20 mg oral tablet)1 tab Oral (given by mouth) every day. ?? dabigatran (dabigatran 75 mg oral capsule)1 Capsules Oral (given by mouth) 2 times a day. ?? ferrous gluconate (ferrous gluconate 324 mg (38 mg elemental iron) oral tablet)1 tab Oral (given bymouth) every day. ?? insulin aspart (NovoLOG)pts own insulin pump. ?? ocular lubricant (Systane Complete Optimal Dry Eye Relief ophthalmic solution)1 Drops Both eyes 5 times per day as needed as needed for dry eyes. ?? pantoprazole (pantoprazole 40 mg oral delayed release tablet)1 tab Oral (given by mouth) 2 times a day. ?? sacubitril-valsartan (Entresto 49 mg-51 mg oral tablet)1 tab Oral (given by mouth) 2 times a day. Electronically Signed on 04/20/23 04:30 PM Rambo New MD Patient Care team information Care Team Personnel Name: ZOFIA JEAN-BAPTISTE Position: No Access Member Role: Primary Care Physician Address: Address: [address] [place] [id number] [place] Name: GENTRY Watt Position: Physician Member Role: Physician Solar Sales Manager Address: Address: [address] [place] [id number] [place] Name: Ashley Villegas Position: Nurse Member Role: Registered Nurse Care Team Related Persons Name: MONCHO MOYER Name: HAROLDO MEJIA
--- OUTSIDE RECORDS SUMMARY | 2023-05-12 17:08 | XMS_ITS | Patient Health Record ---
Author Name Unknown Organization [facility] Billing Info Address [address] [place] [address] [place] [address] Care Team Providers Care Cit[employer] Lead Name Role Phone AMANDAMISBAH ENCISOERAJ Unavailable [phone] JAMES MIRELES Unavailable [phone] Reason For Referral No Information Social History Tobacco Use: Social History Observation Description Date Smoking Status WARNING: Information temporarily unavailable Tobacco Status: Question Answer Notes Patient is a never smoker Encounters Encounter Location Date Provider Diagnosis [address] [place] [address] [place] [id number] 04/21/2023 GIA PATRICIO Chronic obstructive pulmonary disease with (acute) exacerbation J44.1 ; Hypoxemia R09.02 ; Heart failure, unspecified I50.9 and Pneumonia, unspecified organism J18.[address] [place] [address] [place], [place] [id number] 04/22/2023 GIA PATRICIO Chronic obstructive pulmonary disease with (acute) exacerbation J44.1 ; Hypoxemia R09.02 ; Heart failure, unspecified I50.9 and Pneumonia, unspecified organism J18.[address] [place] [address] [place], [place] [id number] 04/23/2023 GIA PATRICIO Chronic obstructive pulmonary disease with (acute) exacerbation J44.1 ; Hypoxemia R09.02 ; Heart failure, unspecified I50.9 and Pneumonia, unspecified organism J18.[address] [place] [address] [place], [place] [id number] 04/24/2023 JAMES MIRELES Chronic obstructive pulmonary disease with (acute) exacerbation J44.1 ; Hypoxemia R09.02 ; Heart failure, unspecified I50.9 and Pneumonia, unspecified organism J18.[id number] [place] [address] [place], [place] [id number] 04/25/2023 GIA PATRICIO Chronic obstructive pulmonary disease with (acute) exacerbation J44.1 ; Hypoxemia R09.02 ; Heart failure, unspecified I50.9 and Pneumonia, unspecified organism J18.[id number] [place] [address] [place], [place] [id number] 04/26/2023 GIA PATRICIO Chronic obstructive pulmonary disease with (acute) exacerbation J44.1 ; Hypoxemia R09.02 ; Heart failure, unspecified I50.9 and Pneumonia, unspecified organism J18.9 Assessments Encounter Date Diagnosis (ICD Code) Assessment Notes Treat ment Notes Treatment Clinical Notes 04/21/2023 Chronic obstructive pulmonary disease with (acute) exacerbation (ICD-10 - J44.1) 04/22/2023 Chronic obstructive pulmonary disease with (acute) exacerbation (ICD-10 - J44.1) 04/23/2023 Chronic obstructive pulmonary disease with (acute) exacerbation (ICD-10 - J44.1) 04/25/2023 Chronic obstructive pulmonary disease with (acute) exacerbation (ICD-10 - J44.1) 04/26/2023 Chronic obstructive pulmonary disease with (acute) exacerbation (ICD-10 - J44.1) 04/24/2023 Chronic obstructive pulmonary disease with (acute) exacerbation (ICD-10 - J44.1) 04/24/2023 Hypoxemia (ICD-10 - R09.02) 04/26/2023 Hypoxemia (ICD-10 - R09.02) 04/25/2023 Hypoxemia (ICD-10 - R09.02) 04/23/2023 Hypoxemia (ICD-10 - R09.02) 04/22/2023 Hypoxemia (ICD-10 - R09.02) 04/21/2023 Hypoxemia (ICD-10 - R09.02) 04/22/2023 Heart failure, unspecified (ICD-10 - I50.9) 04/23/2023 Heart failure, unspecified (ICD-10 - I50.9) 04/25/2023 Heart failure, unspecified (ICD-10 - I50.9) 04/26/2023 Heart failure, unspecified (ICD-10 - I50.9) 04/24/2023 Heart failure, unspecified (ICD-10 - I50.9) 04/21/2023 Heart failure, unspecified (ICD-10 - I50.9) 04/21/2023 Pneumonia, unspecified organism (ICD-10 - J18.9) 04/24/2023 Pneumonia, unspecified organism (ICD-10 - J18.9) 04/26/2023 Pneumonia, unspecified organism (ICD-10 - J18.9) 04/25/2023 Pneumonia, unspecified organism (ICD-10 - J18.9) 04/23/2023 Pneumonia, unspecified organism (ICD-10 - J18.9) 04/22/2023 Pneumonia, unspecified organism (ICD-10 - J18.9) Plan Of Treatment No Information Insurance Providers Payer Name Payer Address Payer Phone Subscriber Number Group Number Insured Name Patient Relationship to Insured Coverage Start Date Coverage End Date [facility] [address] [address] [place], [place] [id number] Jennifer Mar Self - patient is the insured 4 4 [facility] [address] [place], [place] [id number] Jennifer Mar Self - patient is the insured 4 4
--- OUTSIDE RECORDS SUMMARY | 2023-05-12 17:08 | XMS_ITS | Continuity of Care Document ---
Author Name Unknown Organization [facility] Address [address] [place] [address] Care Team Providers Care Corporate Manager Name Role Phone Shirley Yu Primary Care Physician Encounter TL_[place] FIN NBR [id number] Date(s): 04/26/22 - 04/26/[address] [address] Encounter Diagnosis Atherosclerotic heart disease of [place] coronary artery without angina pectoris (Final) - Heart failure, unspecified(Final) - Cardiomyopathy, unspecified(Final) - Discharge Disposition: Home or Self Care [...] Placement of stent in cardiac conduit Completed Social History Social History Type Response Tobacco Former tobacco user Tobacco Use:. Sex US Heart * Event Display: Echo Report Patient Care team information Personnel Name: Shirley Yu Address: Address: [address] [place] [id number]
--- OUTSIDE RECORDS SUMMARY | 2023-05-12 17:08 | XMS_ITS | Continuity of Care Document ---
Author Name Unknown Organization [facility] Address [address] [place] [address] Care Team Providers Care Trader Fixed Income Name Role Phone Shirley Yu Primary Care Physician Encounter [facility] NBR [id number] Date(s): 02/21/22 - 02/21/22 [facility] [address] [place], [place] [address] Encounter Diagnosis Lopez's esophagus(Discharge Diagnosis) - 02/21/22 Dysphagia(Discharge Diagnosis) - 02/21/22 Discharge Disposition: Home or Self Care Attending Physician: Mackenzie Ibrahim APRN Allergies, Adverse Reactions, Alerts Substance Reaction Severity Status penicillin Unknown Active sulfa drugs Moderate Active Assessment and Plan Future Appointments Future Scheduled Tests Radiology* XR Barium Swallow 02/21/22 Functional Status 02/21/22 Other exposure to Infectious Disease Non e [...] Placement of stent in cardiac conduit Completed Vital Signs Most recent to oldest [Reference Range]: 1 Temperature Temporal Artery [36-38 Deg C ] 35.5 Deg C *LOW* (02/21/22 3:34 PM) Peripheral Pulse Rate [60-100 bpm] 75 bp m (02/21/22 3:34 PM) Respiratory Rate [12-24 br/min] 20 br/mi n (02/21/22 3:34 PM) Blood Pressure [90-140/60-90 mmHg] 128/6 2mmHg (02/21/22 3:34 PM) Weight 76.3 kg (02/21/22 3:34 PM) Weight Measured (lbs) 168.213 lb (02/21/22 3:34 PM) Douglas Body Weight Calculated 61.6 kg (02/21/22 3:34 PM) Height 170.18 cm (02/21/22 3:34 PM) Height/Length Measured (inches) 67 inch (02/21/22 3:34 PM) BSA Measured 1.9 m2 (02/21/22 3:34 PM) Body Mass Index 26.35 kg/m2 (02/21/22 3:34 PM) Social History Social History Type Response Tobacco Former tobacco user Tobacco Use:. Sex Physician Outpatient Note * Mackenzie Ibrahim, PROCESS TREATER: PERFORM Event Display: Office Clinic Note Physician Authored Date: [id number] SEAN BRANCH :1960 Age:61 years Sex:Female Visit Date:02/21/2022 Primary Care Physician: Shirley Yu Chief Complaint Lopez's esophagus History of Present Illness Patient is a 61-year-old female here today with request of??Dr. Yu for??Lopez's esophagus. ??This is an initial consult.?? She reports being told she had??Lopez's esophagus with high-grade dysplasia and had ablation.?? She is unsure where she has done, thinks it was at [facility].?? EGD done in 2018 showed no signs of Lopez's esophagus.?? She states she is never had any pyrosis or dyspepsia.?? Currently she complains of dysphagia of saliva??and more upper airway causing her to cough. ??Denies any dysphagia of solids today. ??Denies abdominal pain, nausea, vomiting, constipation, diarrhea, melena or hematochezia. ??Weight and appetite is stable.?? Denies any globus sensation. ?? On pantoprazole 40 mg daily. ?? She states she takes Pradaxa that is prescribed by vascular at [facility]. ??She also has a cardiology consult pending??in [place] however she is unsure which provider. ?? Denies a family history of gastrointestinal cancers. Review of Systems Pertinent positives and negatives are discussed in HPI. Physical Exam Vitals & Measurements T:??35.5?C ??(Temporal Artery)?? HR:??75??(Peripheral)?? RR:??20?? BP:??128/62?? SpO2:??95%?? HT:??170.18??cm?? WT:??76.3??kg?? BMI:??26.35?? BSA:??1.9?? General: Well-nourished well-developed??Female??in no acute distress. HEENT: Head is normocephalic, trachea midline, and no cervical lymphadenopathy. Respiratory: Respirations are even and unlabored. ??Lungs are clear to auscultation. Cardiovascular: Regular rate and slightly irregular rhythm with S1 and S2. Abdomen: Positive bowel sounds x4 quadrants, no masses, no guarding, no tenderness. ??No hepatosplenomegaly. ??Abdomen is soft. Skin: Warm, dry, and pink. Neurological: Alert and oriented x3, speech is clear and gait is steady. Psychological: Pleasant, calm and cooperative. Assessment/Plan 1.??Lopez's esophagus??K22.70 Patient should undergo EGD for Lopez's Surveillance however cardiology consult pending.?? Also takes Pradaxa per vascular and will need clearance.? 2.??Dysphagia??R13.10 Having dysphagia of liquids. Will get barium swallow with speech as patient coughs with liquids.?? Less likely stricture or shatkzi ring given liquids only and not dysphagia.?? If signs of stricture or Schatzki ring would benefit from esophageal dilation.?? I will see patient back in the office in 1 month to discuss barium swallow results and arrange EGD depending on cardiology consult. Ordered: XR Barium Swallow, 02/21/22, Routine, Reason: dysphagia, Transport Mode: Ambulatory, Dysphagia, ABNStatus: Not Required ?? Orders: Follow-up Appointment Request [facility], *Est. 03/21/22 +/- 4 days, Future Order, In Approximately, [facility] Gastroenterology Future Orders XR Barium Swallow, 02/21/22, Routine, Reason: dysphagia, Transport Mode: Ambulatory, Dysphagia, ABNStatus: Not Required Problem List/Past Medical History Ongoing Lopez's esophagus Chronic kidney disease Claudication Concussion COPD (chronic obstructive pulmonary disease) COVID-19 Depression Diabetes DJD (degenerative joint disease) Dysphagia ETD (eustachian tube dysfunction) Femoral-popliteal bypass graft occlusion Hematochezia History of heart artery stent Hypertension Hypoglycemia Hypothyroid Lung nodule Malignant melanoma MANISH (obstructive sleep apnea) PVD (pulmonary valve disease) Historical COPD exacerbation Procedure/Surgical History ???Placement of stent in cardiac conduit Medications aspirin 81 mg oral capsule carvedilol 6.25 mg oral tablet chlorthalidone 25 mg oral tablet citalopram 20 mg oral tablet, 20 mg= 1 tab, Oral, Daily dabigatran 75 mg oral capsule, 75 mg= 1 cap, Oral, BID FeroSul 325 mg (65 mg elemental iron) oral tablet levothyroxine 150 mcg (0.15 mg) oral capsule losartan 100 mg oral tablet magnesium (as chloride)-calcium (as carbonate) 71 mg-118 mg oral delayed release tablet, 2 tab, Oral, Daily NovoLOG pantoprazole 40 mg oral delayed release tablet Pradaxa 150 mg oral capsule, 150 mg= 1 cap, Oral, BID rosuvastatin 5 mg oral capsule Allergies sulfa drugs penicillin Social History Alcohol Never Electronic Cigarette/Vaping Electronic Cigarette Use: Never. Tobacco Former tobacco user Tobacco Use:. Electronically Signed on 02/21/22 04:08 PM Mackenzie Ibrahim APRN Patient Care team information Care Team Personnel Name: Shirley Yu Position: No Access Member Role: Primary Care Physician Address: Address: [address]
[2023-05-12 18:46] LABS: Abs Immature Grans 0.01 10^3/uL (0.0-0.06); Absolute Basophil Count 0.05 10^3/uL (0.0-0.2); Absolute Eosinophil Count 0.13 10^3/uL (0.0-0.7); Absolute Neutrophil Count 4.83 10^3/uL (1.2-6.7); Basophils % 0.8; HCT 37.4 % (36.0-46.0); HGB 12.3 g/dL (11.2-15.7); Immature Grans % 0.2; Lymphocytes % 16.9; MCH 31.9 pg (27.0-33.0); MCHC 32.9 % (32.0-36.0); MCV 97 fL (80-95); Monocytes % 6.1; Platelet Count 244 10^3/uL (130-400); RBC 3.86 10^6/uL (3.93-5.22); RDW 14.6 % (11.7-14.6); RDW-SD 51.8 fL; WBC 6.52 10^3/uL (4.4-10.8)
[2023-05-12 19:07] LABS: ALT 18 U/L (14-59); AST 22 U/L (15-37); Albumin 3.2 g/dL (3.4-5.0); Alkaline Phosphatase 118 U/L (46-116); Anion Gap 9.5 mmol/L (3-11); BUN 29 mg/dL (7-18); Bilirubin, Total 0.8 mg/dL (0.2-1.0); CO2 25.5 mmol/L (21.0-32.0); CREATININE 1.9 mg/dL (0.55-1.02); Chloride 101 mmol/L (98-107); Estimated GFR 29.12 (mL/min/1.73m2); Glucose 243 mg/dL (74-106); Sodium 136 mmol/L (136-145); Total Protein 6.8 g/dL (6.4-8.2)
== END 2023-05-12 16:51 | disposition home or self-care (01) ==
LOC: NCHCN 16:50
PROVIDERS: PCP Family Medicine; Visit Provider Family Medicine
DX: D64.9 Anemia, unspecified (principal); E03.9 Hypothyroidism, unspecified; N18.9 Chronic kidney disease, unspecified
CPT/HCPCS: 80053; 84439; 85025

== ENCOUNTER 2023-06-18 10:58 | Emergency (ER) | payer OTHER, MEDICAID, SELFPAY ==
[2023-06-18 11:02] VITALS: BP 156/46; PULSE 85; RESP 18; TEMP 37.2; O2SAT 95
--- NOTE | 2023-06-18 11:15 | DI.RAD_ITS ---
Exam(s) XR SHOULDER LT COMPLETE 2+V XR HUMERUS LT EXAM: XR SHOULDER LT COMPLETE 2+V and XR humerus LT CLINICAL HISTORY: fall. TECHNIQUE: 2D digital imaging was performed of the left humerus and shoulder. Seven images were obt ained. AP, Grashey, Y-view and axillary views were obtained. COMPARISON: CR,XR XR HUMERUS LT from 06/18/2023 FINDINGS: BONES: There is an acute comminuted mildly displaced fracture of the greater tuberosity. No bony kendal tructive lesion is seen. JOINTS: No dislocation present. Glenohumeral joint and acromioclavicular joints are well maintained. SOFT TISSUE: Normal. IMPRESSION: Acute comminuted mildly displaced fracture of the greater tuberosity. DATA REPOSITORY: RADIATION DOSE DELIVERED:
--- NOTE | 2023-06-18 12:39 | DI.VRAD_ITS ---
PROCEDURE INFORMATION: Exam: XR Left Shoulder Exam date and time: 06/18/2023 12:17 PM Age: 62 years old Clinical indication: Other: Fall TECHNIQUE: Imaging protocol: Radiologic exam of the left shoulder. Views: 2 or more views. COMPARISON: CT HEAD CERVICAL SPINE WO 09/12/2020 8:55 PM FINDINGS: Bones/joints: Fracture with mild displacement of the greater tuberosity of the proximal humerus. No acromioclavicular separation. Soft tissues: Soft tissue swelling. IMPRESSION: Fracture or displacement of the greater tuberosity of the humerus. Dictated and Authenticated by: Rene Blackman MD. Ordering:KASEY Ruiz MD
--- NOTE | 2023-06-18 12:39 | DI.VRAD_ITS ---
PROCEDURE INFORMATION: Exam: XR Left Humerus Exam date and time: 06/18/2023 12:21 PM Age: 62 years old Clinical indication: Other: Fall TECHNIQUE: Imaging protocol: Radiologic exam of the left humerus. Views: 2 or more views. COMPARISON: CR XR SHOULDER LT COMPLETE 2+V 06/18/2023 12:17 PM FINDINGS: Bones/joints: Displaced fracture of the greater tuberosity of the humerus. The mid and distal humerus are intact. Soft tissues: Soft tissue swelling. IMPRESSION: Displaced fracture of the greater tuberosity of the humerus. Dictated and Authenticated by: Rene Blackman MD. Ordering:KASEY Ruiz MD
--- NOTE | 2023-06-18 13:06 | W.ED.GENAD ---
Discharge Plan Disposition Patient Disposition: Home Discharge Details Clinical Impression: Fracture of proximal humerus, Medication adverse effect Primary Care Provider: Shirley Yu V ED Provider: Joseph Whitaker Home Meds and New Rx's Prescriptions: No Action rosuvastatin 10 mg tablet 10 mg PO DAILY carvedilol 12.5 mg tablet 12.5 mg PO BID Rx Instructions: must administer with a meal/food magnesium oxide 250 MG tablet 250 mg PO DAILY cholecalciferol (vitamin D3) [Vitamin D3] 1,000 UNIT capsule 1,000 unit PO DAILY humalog pump subcut 31/10 aspirin 81 MG tablet,delayed release (DR/EC) 81 mg PO DAILY levothyroxine [Levoxyl] 100 MCG tablet 125 mcg PO DAILY citalopram 20 MG tablet 20 mg PO HS dabigatran etexilate [Pradaxa] 150 MG capsule 150 mg PO BID acetaminophen 500 mg tablet 1,000 mg PO Q8H PRN (Reason: pain) Qty: 60 3RF insulin aspart U-100 [Novolog U-100 Insulin aspart] 100 unit/mL solution Patient Comments: INJECT 1.4 UNITS CONTINUOUSLY WITH BOLUS BEFORE MEALS Jardiance 10 mg tablet 10 mg PO DAILY Patient Comments: TAKE ONE TABLET BY MOUTH EVERY DAY amlodipine 5 mg tablet 5 mg PO DAILY Patient Comments: TAKE ONE TABLET BY MOUTH EVERY DAY clopidogrel 75 mg tablet 75 mg PO DAILY Entresto 49-51 mg tablet 1 tab PO BID Patient Comments: TAKE ONE TABLET BY MOUTH TWICE A DAY pantoprazole 40 mg tablet,delayed release (DR/EC) 40 mg PO BID Patient Comments: TAKE ONE TABLET BY MOUTH TWICE A DAY Discharge Instructions Instructions: How to Use a Sling (ED), Proximal Humerus Fracture (ED) Additional Instructions: You have been given a limited supply of narcotics and use half of a tablet to 1 tablet for severe pain. Please use extreme caution with any positional changes or dizziness as this medication may worsen the symptoms. Return to the emergency department for any new or significant worsening of symptoms otherwise follow-up with orthopedic clinic and primary care provider. Stand Alone Forms: Work Release Referrals: [facility] [Provider Group] (Please call the office tomorrow afternoon for arrangement of your follow-up appointment) Shirley Yu MD [Primary Care Provider] - 5 days (For reassessment of blood pressure medications and side effects) Discharge Data Discharge Date/Time-TO BE ENTERED AT DEPARTURE: 06/18/23 13:37 HPI General Mode of arrival: ambulatory. Date/Time Provider Initiated Documentation: 06/18/23 11:00. Limitations to Documentation: no limitations. Information obtained by: patient and RN notes reviewed. History of Present Illness 62 year old F presents to the emergency department with the chief complaint of Fallleft shoulder pain, described as moderate and severe, and is localized to the left, upper extremity and lower extremity. Patient reports no radiation. Patient started experiencing this day(s) (1) and it has been constant. Immobilization improves symptom(s), Other factors that worsen symptoms (Dizziness due to medications) . Patient notes no other symptoms.. Related Data Home Medications Medication Instructions Recorded Confirmed aspirin 81 mg tablet,delayed 81 mg PO DAILY 08/13/12 06/18/23 release citalopram 20 mg tablet 20 mg PO HS 08/13/12 06/18/23 dabigatran etexilate 150 mg 150 mg PO BID 08/13/12 06/18/23 capsule (Pradaxa) levothyroxine 100 mcg tablet 125 mcg PO DAILY 08/13/12 06/18/23 (Levoxyl) Humalog Pump unit subcut 24/7 01/07/16 12/01/22 cholecalciferol (vitamin D3) 25 1,000 unit PO DAILY 01/07/16 06/18/23 mcg (1,000 unit) capsule (Vitamin D3) magnesium oxide 250 mg PO DAILY 01/07/16 06/18/23 acetaminophen 500 mg tablet 1,000 mg (2 x 500 mg) PO Q8H PRN 07/20/21 06/18/23 pain #60 tabs empagliflozin 10 mg tablet 10 mg PO DAILY 07/28/22 06/18/23 (Jardiance) carvedilol 12.5 mg tablet 12.5 mg PO BID 08/17/22 06/18/23 rosuvastatin 10 mg tablet 10 mg PO DAILY 08/17/22 06/18/23 insulin aspart U-100 100 unit/mL 09/23/22 12/01/22 subcutaneous solution (Novolog U-100 Insulin aspart) amlodipine 5 mg tablet 5 mg PO DAILY 06/18/23 06/18/23 clopidogrel 75 mg tablet 75 mg PO DAILY 06/18/23 06/18/23 pantoprazole 40 mg tablet,delayed 40 mg PO BID 06/18/23 06/18/23 release sacubitril 49 mg-valsartan 51 mg 1 tab PO BID 06/18/23 06/18/23 tablet (Entresto) Previous Rx's Medication Instructions Recorded acetaminophen 500 mg tablet 1,000 mg (2 x 500 mg) PO Q8H PRN 07/20/21 pain #60 tabs Allergies Allergy/AdvReac Type Severity Reaction Status Date / Time Sulfa (Sulfonamide Allergy Severe RENAL Verified 06/18/23 11:05 Antibiotics) FAILURE sulfamethoxazole Allergy Severe renal Verified 06/18/23 11:05 [From Bactrim] failure Penicillins Allergy Unknown Other (See Verified 06/18/23 11:05 Comment) trimethoprim [From Bactrim] Allergy Other (See Verified 06/18/23 11:05 Comment) General Stated Complaint: Orthopedic DAVID: 4 Review of Systems Constitutional Constitutional: Denies headache(s) and Denies malaise ENT Ears, Nose, Mouth, and Throat: Reports dizziness and Denies headache(s) Cardiovascular Cardiovascular: Denies chest pain, Denies syncope, Denies irregular heart rhythm and Reports lightheadedness Respiratory Respiratory: Denies pain on inspiration and Denies pain with cough Gastrointestinal Gastrointestinal: Denies abdominal pain and Denies vomiting Musculoskeletal Musculoskeletal: Reports as per HPI Integumentary/Breasts Skin/Breast: Reports unusual bruising Neurologic Neurologic: Reports dizziness, Denies syncope and Denies headache(s) Exam Const General: cooperative, no acute distress and not ill appearing Orientation: alert, awake and oriented x3 HENMT Head: normal to inspection, no palpable skull fracture, normocephalic, atraumatic, no Loja's sign, no lacerations and no raccoon eyes Ears: hearing grossly normal bilaterally and external ears normal General nose exam: external nose normal Face and sinus: normal facial exam Mouth: moist mucous membranes Eyes General: appearance normal, both eyes and all related structures Neck Neck: normal visual inspection, full ROM and nontender Chest Chest: normal inspection of the chest and normal palpation of entire chest wall Resp Effort & Inspection: normal respiratory effort, able to speak in complete sentences and no respiratory distress Auscultation: clear to auscultation bilaterally Cardio Rate: regular rate Rhythm: regular rhythm Heart Sounds: S1 normal and S2 normal Neuro General: patient alert, patient awake and patient oriented x3 Sensory Exam: no sensory deficits noted Extrem General: normal exam except as noted Left upper extremity: shoulder/upper arm Details: tenderness Location: of the proximal humerus, swelling Location: of the proximal humerus, axillary nerve sensory function normal and abnormal ROM Details: held in an abnormal fashion Details: in ADduction and in internal rotation; no ecchymosis Left lower extremity: knee Details: tenderness Location: of the patella, normal ROM and ecchymosis Course Vital Signs Vital signs: Vital Signs Temperature 37.2 C 06/18/23 11:02 Pulse 85 06/18/23 11:02 Respiratory Rate 18 06/18/23 11:02 Blood Pressure 156/46 H 06/18/23 11:02 Pulse Oximetry 95 06/18/23 11:02 Temperature 37.2 C 06/18/23 11:02 Temperature Source Skin 06/18/23 11:02 Pulse 85 06/18/23 11:02 Respiratory Rate 18 06/18/23 11:02 Respiratory Effort Normal, Non-Labored 06/18/23 11:17 Blood Pressure 156/46 H 06/18/23 11:02 Blood Pressure Position Sitting 06/18/23 11:02 Pulse Oximetry 95 06/18/23 11:02 Oxygen Delivery Method Room Air 06/18/23 11:02 Oxygen Flow Rate 0 06/18/23 11:02 Pain Level 10 06/18/23 11:02 Medical Decision Making Patient presenting to the emergency department for chief complaint of fall with left shoulder injury. Patient reports that due to blood pressure variations they have been changing her medications and she has been having intermittent dizziness which has been reported to primary care provider and this is unchanged from what they have been addressing that last night dizziness did cause a fall with injury to her shoulder and knee. She states her knee has minor is able to walk move and typically just has some bruising but otherwise unremarkable. Most of her pain secondary to her shoulder with inability to move or raise her arm. Below the elbow no pain discomfort or dysfunction reported. Patient denies any head injury, loss of consciousness, chest or abdominal pain. Physical exam shows significant tenderness and reduced range of motion to left upper extremity. Mainly to the superior aspect of the humerus. Full range of motion pulse and sensation from elbow down. Patient has ecchymosis to the left anterior knee which is tender around the area of ecchymosis but no bony prominence tenderness, full weightbearing, and full range of motion. Do not feel that radiological imaging is needed of the knee as I feel that patient discomfort is secondary to contusion but will perform imaging of the left upper extremity. Of note review of vital signs does show a lower diastolic blood pressure which we will monitor. Review of radiological imaging does show displaced fracture of the greater tuberosity of the proximal humerus. Patient placed in a sling and on orthopedic follow-up list. Patient states significant pain especially at rest and spite of acetaminophen use. Given that patient has ESRD and cannot use NSAIDs discussed pros and cons of limited supply of narcotic. Also discussed concern about patient's dizziness and use of narcotic. After discussion with patient and patient with full competency to make decisions will provide limited supply of narcotic that expressed extreme caution with use. Patient was recommended to contact primary care provider for further medication adjustments to limit her dizziness. After discussion of diagnosis and plan of care patient has no further needs, questions, or concerns and states clear understanding to return to the emergency department for any worsening symptoms. This documentation was generated using [employer] system, please disregard any oddities of phrase or misspellings. Imaging Data Radiologic Study: Imaging: X-Ray Radiologist's impression: Exam(s) PROCEDURE INFORMATION: Exam: XR Left Shoulder Exam date and time: 06/18/2023 12:17 PM Age: 62 years old Clinical indication: Other: Fall TECHNIQUE: Imaging protocol: Radiologic exam of the left shoulder. Views: 2 or more views. COMPARISON: CT HEAD CERVICAL SPINE WO 09/12/2020 8:55 PM FINDINGS: Bones/joints: Fracture with mild displacement of the greater tuberosity of the proximal humerus. No acromioclavicular separation. Soft tissues: Soft tissue swelling. IMPRESSION: Fracture or displacement of the greater tuberosity of the humerus. Quality:SDOH Health Related Social Needs: No Data to Display PFSH All Active Problems Medication adverse effect (Acute) Fracture of proximal humerus (Acute) Abnormal ankle brachial index (Acute) Concussion (Acute) Ganglion of left wrist (Acute) S/P Excision: 07/30/2021 Cyst (Acute) Right shoulder PAD (peripheral artery disease) (Acute) Infected sebaceous cyst of skin (Acute) Former smoker (Acute) Hx of senior care use of blood thinners (Acute) COVID-19 (Acute) 05/2021 Sebaceous cyst (Acute) Contusion of left knee (Acute) Leg wound, left (Acute) Medical History Infected animal bite of lower leg Struck by pig, initial encounter Pulmonary granuloma RLL Wedge Resection 06/2017 COPD (chronic obstructive pulmonary disease) Carotid stenosis CAD (coronary artery disease) CKD (chronic kidney disease) stage 4, GFR 15-29 ml/min Chronic renal insufficiency Hx of malignant melanoma Diabetes mellitus type 1 Pump in situ per [facility] [place] note Hypothyroidism Hyperlipidemia Benign hypertension 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 Surgical History History of incision and drainage (~09/2022) left lower leg I&D after laceration S/P cardiac cath stent placed 4 month ago Hx of removal of cyst (~07/20/21) upper left chest back excision of melanoma on arm. Trigger Finger release (03/29/11) LEFT THUMB Stent placement LE for intermittent claudication Oophrectomy, Both Abdominal hysterectomy (~2001) Carotid endarterectomy bilateral. Social History Smoking/Tobacco Use Status: Former Tobacco Use Smoking risk assessment performed?: Yes Alcohol Intake: current Alcohol Intake frequency: a few times a week Alcohol type: hard liquor Drug use: Never Substance use type: does not use Housing: apartment Current gender identity: female Do you feel safe at home: Yes Do you feel safe in your relationship?: Yes Additional Social history: unable to access privately
[2023-06-18 13:23] VITALS: BP 164/46; PULSE 64; RESP 14; O2SAT 96
--- NOTE | 2023-06-18 15:25 | NUR.NOTE ---
Referral faxed to Shirley Yu for a follow up appointment to reasses blood pressure some time this week.
== END 2023-06-18 13:37 | disposition home or self-care (01) ==
PROVIDERS: Emergency Provider Nurse Practitioner Family; PCP Family Medicine
DX: S42.252A Displaced fracture of greater tuberosity of left humerus, initial encounter for closed fracture (principal); I12.9 Hypertensive chronic kidney disease with stage 1 through stage 4 chronic kidney disease, or unspecified chronic kidney disease; E10.22 Type 1 diabetes mellitus with diabetic chronic kidney disease; N18.4 Chronic kidney disease, stage 4 (severe); Z96.41 Presence of insulin pump (external) (internal); J44.9 Chronic obstructive pulmonary disease, unspecified; I25.10 Atherosclerotic heart disease of native coronary artery without angina pectoris; Z79.82 Long term (current) use of aspirin; Z79.01 Long term (current) use of anticoagulants; W18.39XA Other fall on same level, initial encounter; Y93.01 Activity, walking, marching and hiking; Y92.414 Local residential or business street as the place of occurrence of the external cause
CPT/HCPCS: 99283; 73030; 73060

== ENCOUNTER → 2023-06-19 10:19 | Outpatient (CLI) | payer OTHER, MEDICAID, SELFPAY ==
--- NOTE | 2023-06-19 15:40 | DI.CT_ITS ---
Exam(s) CT UPPER EXTREMITY LT WO EXAM: CT UPPER EXTREMITY LT WO CLINICAL HISTORY: PAIN, SURGERY PLANNING,fx prox humerus,s42.209a. TECHNIQUE: Imaging Protocol: Axial computed tomography images with coronal and sagittal reformatted images were created and reviewed. COMPARISON: CR,XR XR SHOULDER LT COMPLETE 2+V from 06/18/2023 FINDINGS: Bones: There is again seen an acute nondisplaced comminuted fracture of the greater tuberosity. Bon y alignment is satisfactory. No cellulitic or osteomyelitic changes are identified. Very mild degen erative changes are seen at the acromioclavicular joint. There is mild narrowing of the glenohumeral joint. No lytic or sclerotic lesions are identified. Soft Tissues: Mild edema is seen in the soft tissues of the upper extremity. Centrilobular emphysema tous changes are present in the lungs. Calcified granuloma is seen in the left upper lobe. There is a 4 mm noncalcified nodule in the left upper lobe (series 2, image 145). IMPRESSION: 1. Acute nondisplaced comminuted fracture of the greater tuberosity. 2. Noncalcified 4 mm left upper lobe pulmonary nodule (series 2, image 145). Single solid noncalcified nodules. ???Solid nodules smaller than 6 mm (those 5 mm or smaller) do not require routine follow-up in patients at low risk (grade 1C; strong recommendation, low- or very-low- quality evidence). (Osvaldo et al., 2017) Solid nodules smaller than 6 mm do not require routine follow-up in all patients with high clinical r isk; however, some nodules smaller than 6 mm with suspicious morphology, upper lobe location, or both may warrant follow-up at 12 months (grade 2A; weak recommendation, high-quality evidence). (Osvaldo et al., 2017) Unexpected findings RADIATION DOSE DELIVERED: Total DLP Total DLP DATA REPOSITORY: All CT scans at this facility are submitted to the National Radiology Data Registry (NRDR) Dose Index Registry (DIR) with the [employer] (ACR). RADIATION OPTIMIZATION: All CT scans at this facility use at least one of these dose optimization te chniques: automated exposure control; mA and/or kV adjustment per patient size (includes targeted exa ms where dose is matched to clinical indication); or iterative reconstruction.
== END ==
PROVIDERS: PCP Family Medicine; Visit Provider Student in an Organized Health Care Education/Training Program
DX: S42.254A Nondisplaced fracture of greater tuberosity of right humerus, initial encounter for closed fracture (principal); X58.XXXA Exposure to other specified factors, initial encounter
CPT/HCPCS: 73200

== ENCOUNTER → 2023-06-21 11:05 | Outpatient (BNVA) | payer OTHER, MEDICAID, SELFPAY | PROVIDERS: PCP Family Medicine; Referring Provider Family Medicine; Visit Provider Student in an Organized Health Care Education/Training Program | DX: S42.202D Unspecified fracture of upper end of left humerus, subsequent encounter for fracture with routine healing (principal); W19.XXXD Unspecified fall, subsequent encounter | CPT/HCPCS: 99213 ==

== ENCOUNTER 2023-06-30 11:31 | Outpatient (REF) | payer OTHER, MEDICAID, SELFPAY ==
[2023-06-30 15:52] LABS: Anion Gap 9.6 mmol/L (3-11); BUN 30 mg/dL (7-18); CO2 27.4 mmol/L (21.0-32.0); CREATININE 1.8 mg/dL (0.55-1.02); Calcium 8.9 mg/dL (8.5-10.1); Chloride 101 mmol/L (98-107); Estimated GFR 31.07 (mL/min/1.73m2); Glucose 306 mg/dL (74-106); Potassium 4.9 mmol/L (3.5-5.1); Sodium 138 mmol/L (136-145)
[2023-06-30 16:26] LABS: Hemoglobin A1C 7.8 % (<5.7)
== END 2023-06-30 11:32 | disposition home or self-care (01) ==
LOC: NCHCN 11:31
PROVIDERS: PCP Family Medicine; Visit Provider Family Medicine
DX: I10 Essential (primary) hypertension (principal); E10.319 Type 1 diabetes mellitus with unspecified diabetic retinopathy without macular edema
CPT/HCPCS: 80048; 83036

== ENCOUNTER 2023-07-05 14:51 | Outpatient (CLI) | payer OTHER, MEDICAID, SELFPAY ==
--- NOTE | 2023-07-05 13:15 | DI.RAD_ITS ---
Exam(s) XR SHOULDER LT COMPLETE 2+V EXAM: XR SHOULDER LT COMPLETE 2+V INDICATION: F/U FRACTURE. COMPARISON: CR,XR XR SHOULDER LT COMPLETE 2+V from 06/18/2023 TECHNIQUE: 2D digital imaging was performed. Two views. FINDINGS: There has been no change in the alignment of the greater tuberosity fracture. No new abnormalities a re seen. DATA REPOSITORY: RADIATION DOSE DELIVERED:
== END 2023-07-05 14:52 | disposition home or self-care (01) ==
LOC: DIORS 14:52
PROVIDERS: PCP Family Medicine; Referring Provider Family Medicine
DX: S42.202D Unspecified fracture of upper end of left humerus, subsequent encounter for fracture with routine healing; X58.XXXD Exposure to other specified factors, subsequent encounter
CPT/HCPCS: 99213; 73030

== ENCOUNTER 2023-08-10 15:39 | Outpatient (CLI) | payer OTHER, MEDICAID, SELFPAY ==
--- NOTE | 2023-08-10 13:42 | DI.RAD_ITS ---
Exam(s) XR SHOULDER LT COMPLETE 2+V EXAM: XR SHOULDER LT COMPLETE 2+V CLINICAL HISTORY: F/U L PROX HUM FX. TECHNIQUE: 2D digital imaging was performed. Three views. COMPARISON: CR XR SHOULDER LT COMPLETE 2+V from 07/05/2023 FINDINGS: BONES: There has been no change in the alignment of the greater tuberosity fracture.. JOINTS: No dislocation present. Glenohumeral joint space is maintained. No significant degenerative changes. SOFT TISSUE: Normal. IMPRESSION: Stable alignment of greater tuberosity fracture. DATA REPOSITORY: RADIATION DOSE DELIVERED:
== END 2023-08-10 15:40 | disposition home or self-care (01) ==
LOC: DIORS 15:39
PROVIDERS: PCP Family Medicine
DX: S42.202D Unspecified fracture of upper end of left humerus, subsequent encounter for fracture with routine healing (principal); X58.XXXD Exposure to other specified factors, subsequent encounter
CPT/HCPCS: 99213; 73030

== ENCOUNTER 2023-09-06 16:00 | Outpatient (CLI) | payer OTHER, MEDICAID, SELFPAY ==
--- NOTE | 2023-09-06 15:01 | DI.RAD_ITS ---
Exam(s) XR SHOULDER LT COMPLETE 2+V EXAM: XR SHOULDER LT COMPLETE 2+V CLINICAL HISTORY: F/U FRACTURE. TECHNIQUE: 2D digital imaging was performed of the left shoulder. Two images were obtained. Grashe y and Y views were obtained. COMPARISON: CR XR SHOULDER LT COMPLETE 2+V from 08/10/2023 FINDINGS: BONES: There has been no change in alignment of the fracture involving the greater tuberosity of the left humerus. No new fractures identified. No bony destructive lesion is seen. JOINTS: No dislocation present. SOFT TISSUE: Normal. IMPRESSION: Stable fracture involving the greater tuberosity of the left humerus. DATA REPOSITORY: RADIATION DOSE DELIVERED:
== END 2023-09-06 16:01 | disposition home or self-care (01) ==
LOC: DIORS 16:00
PROVIDERS: PCP Family Medicine; Referring Provider Family Medicine; Visit Provider Student in an Organized Health Care Education/Training Program
DX: S42.252D Displaced fracture of greater tuberosity of left humerus, subsequent encounter for fracture with routine healing (principal); X58.XXXD Exposure to other specified factors, subsequent encounter
CPT/HCPCS: 99213; 73030

== ENCOUNTER 2023-10-06 15:51 | Outpatient (REF) | payer OTHER, MEDICAID, SELFPAY ==
--- OUTSIDE RECORDS SUMMARY | 2023-10-06 15:55 | XMS_ITS | Patient Health Record ---
Author Name Unknown Organization [facility] Billing Info Address [address] [place] [address] [place] [address] Care Team Providers Care Head Up Operator Helper Name Role Phone AMANDAMISBAH ENCISOERAJ Unavailable [phone] JAMES MIRELES Unavailable [phone] Reason For Referral No Information Social History Tobacco Use: Social History Observation Description Date Smoking Status WARNING: Information temporarily unavailable Tobacco Status: Question Answer Notes Patient is a never smoker Encounters Encounter Location Date Provider Diagnosis [address] [place] [address] [place], [place] [id number] 04/21/2023 GIA PATRICIO Chronic obstructive pulmonary disease with (acute) exacerbation J44.1 ; Hypoxemia R09.02 ; Heart failure, unspecified I50.9 and Pneumonia, unspecified organism J18.[address] [place] [address] [place], [place] [id number] 04/22/2023 GIA PATRICIO Chronic obstructive pulmonary disease with (acute) exacerbation J44.1 ; Hypoxemia R09.02 ; Heart failure, unspecified I50.9 and Pneumonia, unspecified organism J18.[address] [place] [address] [place], [place] [id number] 04/23/2023 GIA PATRICIO Chronic obstructive pulmonary disease with (acute) exacerbation J44.1 ; Hypoxemia R09.02 ; Heart failure, unspecified I50.9 and Pneumonia, unspecified organism J18.[address] [place] [address] [place], [place] [id number] 04/24/2023 JAMES MIRELES Chronic obstructive pulmonary disease with (acute) exacerbation J44.1 ; Hypoxemia R09.02 ; Heart failure, unspecified I50.9 and Pneumonia, unspecified organism J18.[id number] [place] [address] [place], [place] [id number] 04/25/2023 GIA PATRICIO Chronic obstructive pulmonary disease with (acute) exacerbation J44.1 ; Hypoxemia R09.02 ; Heart failure, unspecified I50.9 and Pneumonia, unspecified organism J18.[id number] [place] [address] [place], [place] [id number] 04/26/2023 GIA PATRICIO Chronic obstructive pulmonary disease [...] Insured Coverage Start Date Coverage End Date [employer] [address] [address] [place], [place] [id number] Jennifer Mar Self - patient is the insured 4 4 [facility] [address] [place], [place] [id number] Jennifer Mar Self - patient is the insured 4 4
[2023-10-06 16:11] LABS: HCT 41.9 % (36.0-46.0); HGB 14.1 g/dL (11.2-15.7)
[2023-10-06 16:31] LABS: Hemoglobin A1C 7.8 % (<5.7)
[2023-10-06 16:36] LABS: Anion Gap 8.1 mmol/L (3-11); BUN 27 mg/dL (7-18); CO2 30.9 mmol/L (21.0-32.0); CREATININE 1.9 mg/dL (0.55-1.02); Calcium 9.2 mg/dL (8.5-10.1); Chloride 97 mmol/L (98-107); Estimated GFR 29.12 (mL/min/1.73m2); Glucose 124 mg/dL (74-106); Potassium 4.5 mmol/L (3.5-5.1); Sodium 136 mmol/L (136-145); TSH (W/Ref FT4) 0.03 uIU/mL (0.36-3.74)
[2023-10-06 17:06] LABS: FREE T4 1.67 ng/dL (0.76-1.46)
== END 2023-10-06 15:52 | disposition home or self-care (01) ==
LOC: NCHCN 15:51
PROVIDERS: PCP Family Medicine; Visit Provider Family Medicine
DX: E10.319 Type 1 diabetes mellitus with unspecified diabetic retinopathy without macular edema (principal); E03.9 Hypothyroidism, unspecified; D64.9 Anemia, unspecified
CPT/HCPCS: 80048; 83036; 84439; 84443; 85014; 85018

== ENCOUNTER 2023-11-07 14:17 | Outpatient (CLI) | payer OTHER, MEDICAID, SELFPAY ==
--- NOTE | 2023-11-07 13:45 | DI.RAD_ITS ---
Exam(s) XR SHOULDER LT COMPLETE 2+V EXAM: XR SHOULDER LT COMPLETE 2+V INDICATION: F/U FRACTURE. COMPARISON: No exams were available for comparison TECHNIQUE: 2D digital imaging was performed. Two views. FINDINGS: There has been continued healing at the greater tuberosity fracture. No new abnormalities are seen DATA REPOSITORY: RADIATION DOSE DELIVERED:
== END 2023-11-07 14:18 | disposition home or self-care (01) ==
LOC: DIORS 14:17
PROVIDERS: PCP Family Medicine; Visit Provider Student in an Organized Health Care Education/Training Program
DX: S42.202D Unspecified fracture of upper end of left humerus, subsequent encounter for fracture with routine healing (principal); X58.XXXD Exposure to other specified factors, subsequent encounter
CPT/HCPCS: 99213; 73030

== ENCOUNTER 2023-12-13 18:10 | Outpatient (REF) | payer OTHER, MEDICAID, SELFPAY ==
--- OUTSIDE RECORDS SUMMARY | 2023-12-13 18:19 | XMS_ITS | Data Portability ---
Author Organization [facility], [facility] Address Kimberli [place] [address] Care Team Providers Care Tobacco Buyer Name Role Phone SAURAVSHIRLEY ZAVALETA Primary Care Provider [phone] ENOCH CAMPOS Electric Tape Slitter EPIFANIO BRODERICK Vascular Surgeon ALVARADO BROWN Outdoor Recreation Specialist FANNY JADE Chief Mate [facility] Orthopedic Surgeon [phone] DALLIN ZARCO Thoracic Surgeon [facility] OFFICE Ophthalmol ogist Assessment Encounter Date Assessment Date Assessment LastModified by Organization Details LastModified Time 10/06/2023 10/06/2023 Patient presente d to office today for their Medicare Annual Wellness Visit. Education was provided on healthy nutrition, including a diet rich in fruits and vegetables, minimizing simple carbohydrates, salt, and saturated fats. Encouraged regular cardiovascular exercise such as walking at least 30 minutes daily, 5 times per week. Emphasized preventive health measures and educated pt on fall prevention and community-based lifestyle interventions to help reduce health risks and promote healthy living. Personalized prevention plan (PPP) completed and reviewed with patient. Patient was given written copy of PPP at conclusion of visit, detailing prior screening and 5-10 year future screening plan including: screenings for breast cancer and colorectal cancer, immunizations, and other age appropriate screenings consistent with USPSTF and ACIP guidelines [email or web address] Not available 10/04/2023 13:44:08 Plan of Treatment Reminders Order Date Submit Date Provider Last Modified By Organization Details Last Modified Time Details Appointments Office Visit 2023 02:00P M Not available Not available Not available Follow Up 2023 01:30P M Not available Not available Not available Lab CMP, serum or plasma 2023 024 [email or web address] (Registration ), [address] [place] [address] [place], [address], 05/13/2023 06:47:25 CBC w/ diff 2023 024 [email or web address] [facility] (Registration ), [address] [place] [address] [place], [address], 05/19/2023 10:09:08 T4, free, serum 2023 024 [email or web address] (Registration ), [address] [place] [address] [place], [address], 05/13/2023 06:47:25 HbA1c (hemog lobin A1c), blood 2023 024 [email or web address] [facility] (Registration ), [address] [place] [address] [place], [address], 11/27/2023 09:26:01 BMP, serum or plasma 2023 024 [email or web address] (Registration ), [address] [place] [address] [place], [address], 06/30/2023 12:51:11 hemogl obin + hemato crit, blood 2023 024 RJ [facility] (Registration ), [address] [place] [address] [place], [address], 10/06/2023 16:20:13 HbA1c (hemog lobin A1c), blood 2023 024 [email or web address] (Registration ), [address] [place] [address] [place], [address], 10/06/2023 14:36:30 BMP, serum or plasma 2023 024 [facility] (Registration ), [address] [place] [address] [place], [address], 10/06/2023 14:36:30 TSH, serum, reflex free T4 2023 024 [facility] (Registration ), [address] [place] [address] [place], [address], 10/06/2023 14:36:30 urinal ysis, dipsti ck [address], [address] [place] [address], [address], 12/13/2023 14:45:01 cultur e, urine + sensit ivity [email or web address] [facility] [address] [facility] (Registration ), [address] [place] [address] [place], [address], 12/13/2023 15:40:59 Referral physic al therap ist referr al 2023 024 [email or web address] Alexis Gutierrez PT, [address] [facility], [place], [address], 11/27/2023 09:29:52 gastro entero logist referr al - h/o David ts esopha marlon, dyspha jose with liquid s 2023 024 [facility], [address], [place], [address], 11/30/2023 12:47:43 Procedures venipu ncture routin e (PROC) 2023 024 [email or web address] Not available 12/13/2023 15:01:41 Surgeries None record ed. Imaging MAMMO, screen ing, bilate ral 2023 024 [email or web address] [facility] (Registration ), [address] [place] [address] [place], [address], 10/17/2023 09:10:44 Medication Orders nitrog lyceri n 0.4 mg sublin gual tablet 2023 024 [email or web address] [facility], [address] [place], [address], 06/01/2023 15:04:37 cephal exin 500 mg capsul e 2023 024 RJ [facility], [address] [place], [address], 12/13/2023 14:45:00 Patient TargetsNo targets recorded. Patient Instructions Encounter Date Encounter Id Patient Instructions Last Modified By Organization Details Last Modified Time 10/06/2023 [id number] Discussed and explained advance directives such as standard forms to the {{patient caregiv er patient and caregiver}}. Face to face discussion lasted for a duration of ___ minutes. 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 Referring Physician: Family Alysha Frausto, Encounter Date: 04/13/2023 Physical Therapist Referral for Difficulty balancing worsening balance in addition to arm/shoulder Referring Physician: Family Alysha Frausto, Encounter Date: 10/06/2023 Electric Tape Slitter Referral for Disorder of esophagus h/o Barretts esophagus, dysphagia with liquids Referring Physician: Family Alysha Frausto, Encounter Date: 10/06/2023 Chief Mate Referral for At herosclerosis of coronary artery without angina pectoris Referring Physician: Shirley Jean-Baptiste, Family Medicine, Encounter Date: 12/01/2023 Results Created Date Observation Date Name Description Value Unit Range Abnormal Flag Note LastModifiedBy Organization Detail LastModifiedTime 05/12/19 24 05/12/2023 COMPL ETE BLOOD COUNT W/DIF F WBC 6.52 10_3/ uL 4.4-10 .8 normal Not Available [address] [place], [address] 05/12/2023 18:54:41 05/12/19 24 05/12/2023 COMPL ETE BLOOD COUNT W/DIF F RBC 3.86 10_6/ uL 3.93-5 .22 low Not Available [address] [place], [address] 05/12/2023 18:54:41 05/12/19 24 05/12/2023 COMPL ETE BLOOD COUNT W/DIF F HGB 12.3 g/dL 11.2-1 5.7 normal Not Available [address] [place], [address] 05/12/2023 18:54:41 05/12/19 24 05/12/2023 COMPL ETE BLOOD COUNT W/DIF F HCT 37.4 % 36.0-4 6.0 normal Not Available [address] [place], [address] 05/12/2023 18:54:41 05/12/19 24 05/12/2023 COMPL ETE BLOOD COUNT W/DIF F MCV 97 fL 80-95 high Not Available Ken mcrae [address] [place], [address] 05/12/2023 18:54:41 05/12/19 24 05/12/2023 COMPL ETE BLOOD COUNT W/DIF F MCH 31.9 pg 27.0-3 3.0 normal Not Available [address] [place], [address] 05/12/2023 18:54:41 05/12/19 24 05/12/2023 COMPL ETE BLOOD COUNT W/DIF F MCHC 32.9 % 32.0-3 6.0 normal Not Available [address] [place], [address] 05/12/2023 18:54:41 05/12/19 24 05/12/2023 COMPL ETE BLOOD COUNT W/DIF F RDW 14.6 % 11.7-1 4.6 normal Not Available [address] [place], [address] 05/12/2023 18:54:41 05/12/19 24 05/12/2023 COMPL ETE BLOOD COUNT W/DIF F platelet count 244 10_3/ uL 130-40 0 normal Not Available [address] [place], [address] 05/12/2023 18:54:41 05/12/19 24 05/12/2023 COMPL ETE BLOOD COUNT W/DIF F MPV 10.0 fL 8.0-11 .0 normal Not Available [address] [place], [address] 05/12/2023 18:54:41 05/12/19 24 05/12/2023 COMPL ETE BLOOD COUNT W/DIF F neutrophils % 74.0 Not Available [address] [place], [address] 05/12/2023 18:54:41 05/12/19 24 05/12/2023 COMPL ETE BLOOD COUNT W/DIF F lymphocytes % 16.9 Not Available [address] [place], [address] 05/12/2023 18:54:41 05/12/19 24 05/12/2023 COMPL ETE BLOOD COUNT W/DIF F monocytes % 6.1 Not Available [address] [place], [address] 05/12/2023 18:54:41 05/12/19 24 05/12/2023 COMPL ETE BLOOD COUNT W/DIF F eosinophils % 2.0 Not Available [address] [place], [address] 05/12/2023 18:54:41 05/12/19 24 05/12/2023 COMPL ETE BLOOD COUNT W/DIF F basophils % 0.8 Not Available [facility] [address] [place] [place], [address] 05/12/2023 18:54:41 05/12/19 24 05/12/2023 COMPL ETE BLOOD COUNT W/DIF F immature grans % 0.2 Not Available [facility] [address] [place] [place], [address] 05/12/2023 18:54:41 05/12/19 24 05/12/2023 COMPL ETE BLOOD COUNT W/DIF F nucleated RBC 0.0 % 0.0-0. 3 normal Not Available [address] [place], [address] 05/12/2023 18:54:41 05/12/19 24 05/12/2023 COMPL ETE BLOOD COUNT W/DIF F absolute neutrophil count 4.83 10_3/ uL 1.2-6. 7 normal Not Available [address] [place], [address] 05/12/2023 18:54:41 05/12/19 24 05/12/2023 COMPL ETE BLOOD COUNT W/DIF F absolute lymphocyte count 1.10 10_3/ uL 1.2-3. 4 low Not Available [address] [place], [address] 05/12/2023 18:54:41 05/12/19 24 05/12/2023 COMPL ETE BLOOD COUNT W/DIF F absolute monocyte count 0.40 10_3/ uL 0.1-0. 8 normal Not Available [address] [place], [address] 05/12/2023 18:54:41 05/12/19 24 05/12/2023 COMPL ETE BLOOD COUNT W/DIF F absolute eosinophil count 0.13 10_3/ uL 0.0-0. 7 normal Not Available [address] [place], [address] 05/12/2023 18:54:41 05/12/19 24 05/12/2023 COMPL ETE BLOOD COUNT W/DIF F absolute basophil count 0.05 10_3/ uL 0.0-0. 2 normal Not Available [address] [place], [address] 05/12/2023 18:54:41 05/12/19 24 05/12/2023 COMPR EHENS JAIME METAB OLIC PANEL calcium 9.0 mg/dL 8.5-10 .1 normal Not Available [address] [place], [address] 05/12/2023 19:10:48 05/12/19 24 05/12/2023 COMPR EHENS JAIME METAB OLIC PANEL glucose 243 mg/dL 74-106 high Not Available Ken mcrae [address] [place] [place], [address] 05/12/2023 19:10:48 05/12/19 24 05/12/2023 COMPR EHENS JAIME METAB OLIC PANEL BUN 29 mg/dL 7-18 high Not Available Ken mcrae [address] [place] [place], [address] 05/12/2023 19:10:48 05/12/19 24 05/12/2023 COMPR EHENS JAIME METAB OLIC PANEL creatinine 1.9 mg/dL 0.55-1 .02 high Not Available [address] [place], [address] 05/12/2023 19:10:48 05/12/19 24 05/12/2023 COMPR EHENS JAIME METAB OLIC PANEL estimated GFR 29.12 mL/min /1.73m 2 The eGFR is calcu lated from a serum creat inine using the CKD-E PI 2020 equat ion. Other varia bles requi red for the equat ion are gende r and age; this equat ion does not inclu de a race coeff icien t. This equat ion has simil ar overa ll perfo rmanc e to previ ous equat ions excep t value s may diffe r, in parti cular , in patie nts with highe r value s of eGFR and young er-ag ed adult s. Not Available [address] [place], [address] 05/12/2023 19:10:48 05/12/19 24 05/12/2023 COMPR EHENS JAIME METAB OLIC PANEL total protein 6.8 g/dL 6.4-8. 2 normal Not Available [address] [place], [address] 05/12/2023 19:10:48 05/12/19 24 05/12/2023 COMPR EHENS JAIME METAB OLIC PANEL albumin 3.2 g/dL 3.4-5. 0 low Not Available [address] [place], [address] 05/12/2023 19:10:48 05/12/19 24 05/12/2023 COMPR EHENS JAIME METAB OLIC PANEL bilirubin, total 0.8 mg/dL 0.2-1. 0 normal Not Available [address] [place], [address] 05/12/2023 19:10:48 05/12/19 24 05/12/2023 COMPR EHENS JAIME METAB OLIC PANEL alk phos 118 U/L 46-116 high Not Available [address] [place], [address] 05/12/2023 19:10:48 05/12/19 24 05/12/2023 COMPR EHENS JAIME METAB OLIC PANEL sodium 136 mmol/ L 136-14 5 normal Not Available [address] [place], [address] 05/12/2023 19:10:48 05/12/19 24 05/12/2023 COMPR EHENS JAIME METAB OLIC PANEL potassium 5.0 mmol/ L 3.5-5. 1 normal Not Available [address] [place], [address] 05/12/2023 19:10:48 05/12/19 24 05/12/2023 COMPR EHENS JAIME METAB OLIC PANEL chloride 101 mmol/ L 98-107 normal Not Available [address] [place], [address] 05/12/2023 19:10:48 05/12/19 24 05/12/2023 COMPR EHENS JAIME METAB OLIC PANEL CO2 25.5 mmol/ L 21.0-3 2.0 normal Not Available [address] [place], [address] 05/12/2023 19:10:48 05/12/19 24 05/12/2023 COMPR EHENS JAIME METAB OLIC PANEL anion gap 9.5 mmol/ L 3-11 normal Not Available [address] [place], [address] 05/12/2023 19:10:48 05/12/19 24 05/12/2023 COMPR EHENS JAIME METAB OLIC PANEL AST 22 U/L 15-37 normal Not Available Ken mcrae [address] [place] [place], [address] 05/12/2023 19:10:48 05/12/19 24 05/12/2023 COMPR EHENS JAIME METAB OLIC PANEL ALT 18 U/L 14-59 normal Not Available Ken mcrae [address] [place], [address] 05/12/2023 19:10:48 05/12/19 24 05/12/2023 FREE T4 free T4 1.40 NG/dL 0.76-1 .46 normal Not Available [address] [place], [address] 05/12/2023 19:10:49 06/30/19 24 06/30/2023 LASIC METAB OLIC PANEL calcium 8.9 mg/dL 8.5-10 .1 normal Not Available [address] [place], [address] 06/30/2023 15:59:43 06/30/19 24 06/30/2023 LASIC METAB OLIC PANEL glucose 306 mg/dL 74-106 high Not Available Ken mcrae [address] [place], [address] 06/30/2023 15:59:43 06/30/19 24 06/30/2023 LASIC METAB OLIC PANEL BUN 30 mg/dL 7-18 high Not Available Ken mcrae [address] [place], [address] 06/30/2023 15:59:43 06/30/19 24 06/30/2023 LASIC METAB OLIC PANEL creatinine 1.8 mg/dL 0.55-1 .02 high Not Available [address] [place], [address] 06/30/2023 15:59:43 06/30/19 24 06/30/2023 LASIC METAB OLIC PANEL estimated GFR 31.07 mL/min /1.73m 2 The eGFR is calcu lated from a serum creat inine using the CKD-E PI 2020 equat ion. Other varia bles requi red for the equat ion are gende r and age; this equat ion does not inclu de a race coeff icien t. This equat ion has simil ar overa ll perfo rmanc e to previ ous equat ions excep t value s may diffe r, in parti cular , in patie nts with highe r value s of eGFR and young er-ag ed adult s. Not Available [address] [place], [address] 06/30/2023 15:59:43 06/30/19 24 06/30/2023 LASIC METAB OLIC PANEL sodium 138 mmol/ L 136-14 5 normal Not Available [address] [place], [address] 06/30/2023 15:59:43 06/30/19 24 06/30/2023 LASIC METAB OLIC PANEL potassium 4.9 mmol/ L 3.5-5. 1 normal Not Available [address] [place], [address] 06/30/2023 15:59:43 06/30/19 24 06/30/2023 LASIC METAB OLIC PANEL chloride 101 mmol/ L 98-107 normal Not Available [address] [place], [address] 06/30/2023 15:59:43 06/30/19 24 06/30/2023 LASIC METAB OLIC PANEL CO2 27.4 mmol/ L 21.0-3 2.0 normal Not Available [address] [place], [address] 06/30/2023 15:59:43 06/30/19 24 06/30/2023 LASIC METAB OLIC PANEL anion gap 9.6 mmol/ L 3-11 normal Not Available [address] [place], [address] 06/30/2023 15:59:43 06/30/19 24 06/30/2023 HEMOG LOBIN A1C hemoglobin A1C 7.8 % <5.7 high Refer ence Range s <5.7 Valentina l 5.7-6 .4% Predi abete s 6.5% or great er Diagn ostic for diabe eduin (if confi rmed) Refer ences : 1. Ameri can Diabe eduin Assoc iatio n. Clas sific ation and Diagn osis of Diabe eduin. Diabe eduin Care 2018 2(Sup pleme nt 1):S1 3-s28 . Not Available [address] [place], [address] 06/30/2023 16:29:48 10/06/19 24 10/06/2023 HEMOG LOBIN /DARY TOCRI T HGB 14.1 g/dL 11.2-1 5.7 normal Not Available [address] [place], [address] 10/06/2023 16:20:13 10/06/19 24 10/06/2023 HEMOG LOBIN /DARY TOCRI T HCT 41.9 % 36.0-4 6.0 normal Not Available [address] [place], [address] 10/06/2023 16:20:13 10/06/19 24 10/06/2023 HEMOG LOBIN A1C hemoglobin A1C 7.8 % <5.7 high Refer ence Range s <5.7 Valentina l 5.7-6 .4% Predi abete s 6.5% or great er Diagn ostic for diabe eduin (if confi rmed) Refer ences : 1. Ameri can Diabe eduin Assoc iatio n. Clas sific ation and Diagn osis of Diabe eduin. Diabe eduin Care 2018 2(Sup pleme nt 1):S1 3-s28 . Not Available [address] [place], [address] 10/06/2023 16:38:14 10/06/19 24 10/06/2023 BASIC METAB OLIC PANEL calcium 9.2 mg/dL 8.5-10 .1 normal Not Available [address] [place], [address] 10/06/2023 16:38:27 10/06/19 24 10/06/2023 BASIC METAB OLIC PANEL glucose 124 mg/dL 74-106 high Not Available Ken mcrae [address] [place], [address] 10/06/2023 16:38:27 10/06/19 24 10/06/2023 BASIC METAB OLIC PANEL BUN 27 mg/dL 7-18 high Not Available Ken mcrae [address] [place], [address] 10/06/2023 16:38:27 10/06/19 24 10/06/2023 BASIC METAB OLIC PANEL creatinine 1.9 mg/dL 0.55-1 .02 high Not Available [address] [place], [address] 10/06/2023 16:38:27 10/06/19 24 10/06/2023 BASIC METAB OLIC PANEL estimated GFR 29.12 mL/min /1.73m 2 The eGFR is calcu lated from a serum creat inine using the CKD-E PI 2020 equat ion. Other varia bles requi red for the equat ion are gende r and age; this equat ion does not inclu de a race coeff icien t. This equat ion has simil ar overa ll perfo rmanc e to previ ous equat ions excep t value s may diffe r, in parti cular , in patie nts with highe r value s of eGFR and young er-ag ed adult s. Not Available [address] [place], [address] 10/06/2023 16:38:27 10/06/19 24 10/06/2023 BASIC METAB OLIC PANEL sodium 136 mmol/ L 136-14 5 normal Not Available [address] [place], [address] 10/06/2023 16:38:27 10/06/19 24 10/06/2023 BASIC METAB OLIC PANEL potassium 4.5 mmol/ L 3.5-5. 1 normal Not Available [address] [place], [address] 10/06/2023 16:38:27 10/06/19 24 10/06/2023 BASIC METAB OLIC PANEL chloride 97 mmol/ L 98-107 low Not Available [address] [place], [address] 10/06/2023 16:38:27 10/06/19 24 10/06/2023 BASIC METAB OLIC PANEL CO2 30.9 mmol/ L 21.0-3 2.0 normal Not Available [address] [place], [address] 10/06/2023 16:38:27 10/06/19 24 10/06/2023 BASIC METAB OLIC PANEL anion gap 8.1 mmol/ L 3-11 normal Not Available [address] [place], [address] 10/06/2023 16:38:27 10/06/19 24 10/06/2023 TSH (W/RE F FT4) TSH (w/ref FT4) 0.03 uIU/m L 0.36-3 .74 low Not Available [address] [place], [address] 10/06/2023 16:38:28 10/06/19 24 10/06/2023 BASIC METAB OLIC PANEL calcium 9.2 mg/dL 8.5-10 .1 normal Not Available [address] [place], [address] 10/06/2023 17:11:21 10/06/19 24 10/06/2023 BASIC METAB OLIC PANEL glucose 124 mg/dL 74-106 high Not Available Ken mcrae [address] [place] [place], [address] 10/06/2023 17:11:21 10/06/19 24 10/06/2023 BASIC METAB OLIC PANEL BUN 27 mg/dL 7-18 high Not Available Ken mcrae [address] [place] [place], [address] 10/06/2023 17:11:21 10/06/19 24 10/06/2023 BASIC METAB OLIC PANEL creatinine 1.9 mg/dL 0.55-1 .02 high Not Available [address] [place], [address] 10/06/2023 17:11:21 10/06/19 24 10/06/2023 BASIC METAB OLIC PANEL estimated GFR 29.12 mL/min /1.73m 2 The eGFR is calcu lated from a serum creat inine using the CKD-E PI 2020 equat ion. Other varia bles requi red for the equat ion are gende r and age; this equat ion does not inclu de a race coeff icien t. This equat ion has simil ar overa ll perfo rmanc e to previ ous equat ions excep t value s may diffe r, in parti cular , in patie nts with highe r value s of eGFR and young er-ag ed adult s. Not Available [address] [place], [address] 10/06/2023 17:11:21 10/06/19 24 10/06/2023 BASIC METAB OLIC PANEL sodium 136 mmol/ L 136-14 5 normal Not Available [address] [place], [address] 10/06/2023 17:11:21 10/06/19 24 10/06/2023 BASIC METAB OLIC PANEL potassium 4.5 mmol/ L 3.5-5. 1 normal Not Available [address] [place], [address] 10/06/2023 17:11:21 10/06/19 24 10/06/2023 BASIC METAB OLIC PANEL chloride 97 mmol/ L 98-107 low Not Available [address] [place], [address] 10/06/2023 17:11:21 10/06/19 24 10/06/2023 BASIC METAB OLIC PANEL CO2 30.9 mmol/ L 21.0-3 2.0 normal Not Available [address] [place], [address] 10/06/2023 17:11:21 10/06/19 24 10/06/2023 BASIC METAB OLIC PANEL anion gap 8.1 mmol/ L 3-11 normal Not Available [address] [place], [address] 10/06/2023 17:11:21 10/06/19 24 10/06/2023 TSH (W/RE F FT4) TSH (w/ref FT4) 0.03 uIU/m L 0.36-3 .74 low Not Available [address] [place], [address] 10/06/2023 17:11:22 10/06/19 24 10/06/2023 FREE T4 free T4 1.67 NG/dL 0.76-1 .46 high Not Available [address] [place], [address] 10/06/2023 17:11:22 12/13/19 24 12/13/2023 urina lysis , dipst ick Leukocytes Modera te Not Available [address], [address], 12/13/2023 14:11:39 12/13/19 24 12/13/2023 urina lysis , dipst ick Nitrite positi ve Not Available [address], [address], 12/13/2023 14:11:39 12/13/19 24 12/13/2023 urina lysis , dipst ick Urobilinogen .2 Not Available [address], [address], 12/13/2023 14:11:39 12/13/19 24 12/13/2023 urina lysis , dipst ick Protein 100 Not Available [address], [address], 12/13/2023 14:11:39 12/13/19 24 12/13/2023 urina lysis , dipst ick pH 6.0 Not Available [address], [address], 12/13/2023 14:11:39 12/13/19 24 12/13/2023 urina lysis , dipst ick Blood Non-He molyze d: Trace Not Available [facility] [address] [place], [address], 12/13/2023 14:11:39 12/13/19 24 12/13/2023 urina lysis , dipst ick Specific [place] 1.005 Not Available [facility] [address] [place], [address], 12/13/2023 14:11:39 12/13/19 24 12/13/2023 urina lysis , dipst ick Ketone Negati ve Not Available [address], [address], 12/13/2023 14:11:39 12/13/19 24 12/13/2023 urina lysis , dipst ick Bilirubin Negati ve Not Available [facility] [address] [place], [address], 12/13/2023 14:11:39 12/13/19 24 12/13/2023 urina lysis , dipst ick Glucose 2000+ Not Available [address], [address], 12/13/2023 14:11:39 12/13/19 24 12/13/2023 urina lysis , dipst ick Appearance Cloudy Not Available [facility] [address] [place], [address], 12/13/2023 14:11:39 12/13/19 24 12/13/2023 urina lysis , dipst ick Color Pale Yellow Not Available [address], [address], 12/13/2023 14:11:39 04/28/19 24 04/23/2023 CT, angio gram, chest , w/o contr ast No observ ation record ed. [email or web address] [facility] [address] [place], [address], 05/03/2023 10:07:29 05/03/19 24 04/23/2023 hospi yolette disch arge follo w up* No observ ation record ed. [email or web address] [facility] U[facility] Medical Records [address] [facility] [place], [address], 05/12/2023 12:56:03 05/04/19 24 04/23/2023 CT, chest , w/o contr ast No observ [facility] [place] [address] [address] [place], [address], 05/12/2023 13:38:47 05/04/19 24 04/21/2023 XR, chest No observ ation record ed. [address] [place], [address], 05/12/2023 13:39:33 06/18/19 24 06/18/2023 malachi mcleod Name: Torie Blankenship Unit #: [id number] Loc: ER Orderi [facility] er: Harjinder t #: [id number] Status : REG ER Primar y Care Provid er: Alberta Salcedo M.D. Date of Exam : Sex: F : 1960 Age: 62 Exam(s ) PROCED URE INFORM ATION: Exam: XR Left Humeru s Exam date and time: 12:21 PM Age: 62 years old Clinic al indica tion: Other: Fall TECHNI QUE: Imagin g protoc ol: Radiol ogic exam of the left humeru s. Views: 2 or more views. COMPAR VALERIANO: CR XR SHOULD ER LT COMPLE TE 2+V 3/10/2 024 12:17 PM FINDIN GS: Bones/ joints : Displa santiago fractu re of the greate r tubero sity of the humeru s. The mid and distal humeru s are intact . Soft tissue s: Soft tissue doretha king. IMPRES ANA MARIA: Displa santiago fractu re of the greate r tubero sity of the humeru s. Dictat ed and Authen ticate d by: Rene cohn MD. Orderi ng:Isaias jones MD Access ion#=[id number] Ordere d By: CC: ------ ------ ------ ------ ------ ------ ------ ------ ------ ------ ------ ------ ---- Dictat ed By: Report s vrad 1221 1238 Transc ribed By: Amparo Chaudhry 1221 This is privil eged, confid ential inform ation intend ed only for the provid er named. Any use or distri bution by any person other than this provid er is strict ly prohib ited. If you receiv e this report in error, please notify us immedi ately at [phone] and return the origin al report to us at the addres s above. Thank- you. [facility] [address], [place], [address] 06/18/2023 15:12:42 06/18/19 24 06/18/2023 vrad repor t Patien t Name: Torie Blankenship Unit #: [id number] Loc: ER Orderi ng Provid er: Harjinder t #: [id number] Status : REG ER Primar y Care Provid er: Alberta Salcedo M.D. Date of Exam : Sex: F : 1960 Age: 62 Exam(s ) PROCED URE INFORM ATION: Exam: XR Left Should er Exam date and time: 024 12:17 PM Age: 62 years old Clinic al indica tion: Other: Fall TECHNI QUE: Imagin g protoc ol: Radiol ogic exam of the left should er. Views: 2 or more views. COMPAR VALERIANO: CT HEAD CERVIC AL SPINE WO 09/13/19 8:55 PM FINDIN GS: Bones/ joints : Fractu re with mild displa cement of the greate r tubero sity of the proxim al humeru s. No acromi oclavi cular separa tion. Soft tissue s: Soft tissue swelli ng. IMPRES ANA MARIA: Fractu re or displa cement of the greate r tubero sity of the humeru s. Dictat ed and René potter d by: Rene cohn MD. Orderi ng:Isaias jones MD Access ion#=[id number] Meera rojas By: CC: ------ ------ ------ ------ ------ ------ ------ ------ ------ ------ ------ ------ ---- Dictat ed By: Report s vrad 1217 1238 Transc ribed By: Amparo Merge 1217 This is privil eged, confid ential inform ation intend ed only for the provid er named. Any use or distri bution by any person other than this provid er is strict ly prohib ited. If you receiv e this report in error, please notify us immedi ately at and return the origin al report to us at the addres s above. Thank- you. antonio [facility] [address] [place], [address] 06/18/2023 15:12:42 06/18/19 24 06/18/2023 x-ray imagi ng repor t Patien t Name: Torie Blankenship Deidre Unit #: [id number] Loc: ER Orderi ng Provid er: Mckinley Duckworth PRESS LOADER Accoun t #: [id number] Status : REG ER Primar y Care Provid er: Alberta Salcedo M.D. Date of Exam : Sex: F Admiss ion Date: : 1960 Age: 62 Exam(s ) XR SHOULD ER LT COMPLE TE 2+V XR HUMERU S LT EXAM: XR SHOULD ER LT COMPLE TE 2+V and XR humeru s LT CLINIC AL HISTOR Y: fall. TECHNI QUE: 2D digita l imagin g was perfor med of the left humeru s and should er. Seven images were obtain ed. AP, Grashe y, Y-view and axilla ry views were obtain ed. COMPAR VALERIANO: CR,XR XR HUMERU S LT from 2023 FINDIN GS: BONES: There is an acute commin uted mildly displa santiago fractu re of the greate r tubero sity. No bony destru ctive lesion is seen. JOINTS : No disloc ation presen t. Glenoh umeral joint and acromi oclavi cular joints are well mainta ined. SOFT TISSUE : Normal . IMPRES ANA MARIA: Acute commin uted mildly displa santiago fractu re of the greate r tubero sity. DATA REPOSI TORY: RADIAT ION DOSE DELIVE RED: Ordere d By: Mckinley Duckworth NP CC: ------ ------ ------ ------ ------ ------ ------ ------ ------ ------ ------ ------ - Dictat ed By: Erik Awad M.D. 1323 1323 Transc ribed By: Erik Awad 1323 This is privil eged, confid ential inform ation intend ed only for the provid er named. Any use or distri bution by any person other than this provid er is strict ly prohib ited. If you receiv e this report in error, please notify us immedi ately at and return the origin al report to us at the addres s above. Thank- you. antonio [facility] [address], [place], [address] 06/18/2023 15:12:42 06/18/19 24 06/18/2023 x-ray imagi ng tanna t Patiisela t Name: Torie Blankenship Unit #: [id number] Loc: ER Orderguille ng Provid er: Mckinley Duckworth NP Accoun t #: [id number] Status : REG ER Primar y Care Provid er: Alberta Salcedo M.D. Date of Exam : Sex: F Admiss ion Date: : 1960 Age: 62 Exam(s ) XR SHOULD ER LT COMPLE TE 2+V XR HUMERU S LT EXAM: XR SHOULD ER LT COMPLE TE 2+V and XR humeru s LT CLINIC AL HISTOR Y: fall. TECHNI QUE: 2D digita l imagin g was perfor med of the left humeru s and should er. Seven images were obtain ed. AP, Grashe y, Y-view and axilla ry views were obtain ed. COMPAR VALERIANO: CR,XR XR HUMERU S LT from 2023 FINDIN GS: BONES: There is an acute commin uted mildly displa santiago fractu re of the greate r tubero sity. No bony destru ctive lesion is seen. JOINTS : No disloc ation presen t. Glenoh umeral joint and acromi oclavi cular joints are well mainta ined. SOFT TISSUE : Normal . IMPRES ANA MARIA: Acute commin uted mildly displa santiago fractu re of the greate r tubero sity. DATA REPOSI TORY: RADIAT ION DOSE DELIVE RED: Meera d By: Mckinley Duckworth NP CC: ------ ------ ------ ------ ------ ------ ------ ------ ------ ------ ------ ------ - Dictat ed By: Erik Awad M.D. 1323 1323 Transc ribed By: Erik Awad 1323 This is privil eged, confid ential inform ation intend ed only for the provid er named. Any use or distri bution by any person other than this provid er is strict ly prohib ited. If you receiv e this report in error, please notify us immedi ately at [phone] and return the origin al report to us at the addres s above. Thank- you. [facility] [address], [place], [address] 06/18/2023 15:12:43 06/19/19 24 06/19/2023 CT imagi ng repor t Patien t Name: Torie Blankenship Unit #: [id number] Loc: DI Orderi ng Provid er: Mervin Chapman M.D. Accoun t #: [id number] Status : PRE CLI Primar y Care Provid er: Alberta Salcedo M.D. Date of Exam : Sex: F : 1960 Age: 62 Exam(s ) a CT:CT upper extrem ity LT wo Exam(s ) CT UPPER EXTREM ITY LT WO EXAM: CT UPPER EXTREM ITY LT WO CLINIC AL HISTOR Y: PAIN, SURGER Y PLANNI NG,fx prox humeru s,s42. 209a. TECHNI QUE: Imagin g Protoc ol: Axial comput ed tomogr aphy images with ramirez l and sagitt al reform atted images were create d and review ed. COMPAR VALERIANO: CR,XR XR SHOULD ER LT COMPLE TE 2+V from 2023 FINDIN GS: Bones: There is again seen an acute nondis placed commin uted fractu re of the greate r tubero sity. Bony alignm ent is satisf actory . No cellul itic or osteom yeliti c change s are identi fied. Very mild degene rative change s are seen at the acromi oclavi cular joint. There is mild narrow ing of the glenoh umeral joint. No lytic or sclero tic lesion s are identi fied. Soft Tissue s: Mild edema is seen in the soft tissue s of the upper extrem ity. Centri lobula r emphys ematou s change s are presen t in the lungs. Calcif ied granul krunal is seen in the left upper lobe. There is a 4 mm noncal cified nodule in the left upper lobe (serie s 2, image 145). IMPRES ANA MARIA: 1. Acute nondis placed commin uted fractu re of the greate r tubero sity. 2. Noncal cified 4 mm left upper lobe pulmon tapan nodule (serie s 2, image 145). Single solid noncal cified nodule s. ???Isis id nodule s smalle r than 6 mm (those 5 mm or smalle r) do not requir e routin e follow -up in patien ts at low risk (grade 1C; strong recomm endati on, low- or very-l ow-fidel lity eviden ce). (Richard robins et al., 2017) Solid nodule s smalle r than 6 mm do not requir e routin e follow -up in all patien ts with high clinic al risk; howeve r, some nodule s smalle r than 6 mm with suspic ious morpho logy, upper lobe locati on, or both may warran t follow -up at 12 months (grade 2A; weak recomm endati on, high-q uality eviden ce). (Richard robins et al., 2017) Unexpe cted findin gs RADIAT ION DOSE DELIVE RED: Total DLP Total DLP DATA REPOSI TORY: All CT scans at this facili ty are submit mackenzie to the Nation al Radiol ogy Data Regist ry (NRDR) Dose Index Regist ry (DIR) with the [place] [employer]iol [employer]gy (ACR). RADIAT ION OPTIMI ZATION : All CT scans at this facili ty use at least one of these dose optimi zation techni ques: automa mackenzie exposu re contro l; mA and/or kV adjust ment per patien t size (inclu kendal target ed exams where dose is matche d to clinic al indica tion); or iterat jaime recons tructi on. 0311-0 021: Total DLP = 0.00 mGy-cm Ordere d By: Mervin Chapman M.D. CC: ------ ------ ------ ------ ------ ------ ------ ------ ------ ------ ------ ------ ---- Dictat ed By: Erik Awad M.D. 1612 Transc ribed By: Erik Awad 1612 This is privil eged, confid ential inform ation intend ed only for the provid er named. Any use or distri bution by any person other than this provid er is strict ly prohib ited. If you receiv e this report in error, please notify us immedi ately at and return the origin al report to us at the addres s above. Thank- you. [facility] [address], [place], [address] 06/20/2023 07:47:31 07/04/19 24 04/26/2022 trans -thor acic echoc ardio gram (TTE) (PROC ) No observ ation record ed. [address], [address], 07/06/2023 09:20:21 07/04/19 24 04/19/2023 elect caleb martinez amsol ne ECG, 12 leads min No observ ation record ed. [address], [address], 07/06/2023 09:21:57 07/05/19 24 07/05/2023 x-ray imagi ng tanna mcleod Name: AvilaTorie gallegos Unit #: [id number] Loc: DIORS Orderi ng Provid er: Lindsay Sanchez Accoun t #: [id number] Status : PRE CLI Primar y Care Provid er: Alberta Salcedo M.D. Date of Exam : Sex: F Admiss ion Date: : 1960 Age: 62 Exam(s ) XR SHOULD ER LT COMPLE TE 2+V EXAM: XR SHOULD ER LT COMPLE TE 2+V INDICA TION: F/U FRACTU RE. COMPAR VALERIANO: CR,XR XR SHOULD ER LT COMPLE TE 2+V from 2023 TECHNI QUE: 2D digita l imagin g was perfor med. Two views. FINDIN GS: There has been no change in the alignm ent of the greate r tubero sity fractu re. No new abnorm alitie s are seen. DATA REPOSI TORY: RADIAT ION DOSE DELIVE RED: Ordere d By: Lindsay Sanchez CC: ------ ------ ------ ------ ------ ------ ------ ------ ------ ------ ------ ------ - Dictat ed By: Prabhu Moss 1413 141 Transc ribed By: Sandy Solo 1413 This is privil eged, confid ential inform ation intend ed only for the provid er named. Any use or distri bution by any person other than this provid er is strict ly prohib ited. If you receiv e this report in error, please notify us immedi ately at [phone] and return the origin al report to us at the addres s above. Thank- you. antonio [facility] [address] [place], [address] 07/05/2023 16:41:16 08/10/19 24 08/10/2023 x-ray imagi ng repor t Patien t Name: Miya shaniTorie fuentes Deidre Unit #: [id number] Loc: DIORS Orderi ng Provid er: Mele Tong M.D. Accoun t #: [id number] Status : REG CLI Primar y Care Provid er: Alberta Salcedo M.D. Date of Exam : Sex: F Admiss ion Date: : 1960 Age: 62 Exam(s ) XR SHOULD ER LT COMPLE TE 2+V EXAM: XR SHOULD ER LT COMPLE TE 2+V CLINIC AL HISTOR Y: F/U L PROX HUM FX. TECHNI QUE: 2D digita l imagin g was perfor med. Three views. COMPAR VALERIANO: CR XR SHOULD ER LT COMPLE TE 2+V from 2023 FINDIN GS: BONES: There has been no change in the alignm ent of the greate r tubero sity fractu re.. JOINTS : No disloc ation presen t. Glenoh umeral joint space is mainta ined. No signif icant degene rative change s. SOFT TISSUE : Normal . IMPRES ANA MARIA: Stable alignm ent of greate r tubero sity fractu re. DATA REPOSI TORY: RADIAT ION DOSE DELIVE RED: Ordere d By: Mele Tong M.D. CC: ------ ------ ------ ------ ------ ------ ------ ------ ------ ------ ------ ------ - Dictat ed By: Prabhu Moss 1632 163 Transc ribed By: Sandy Solo 1632 This is privil eged, confid ential inform ation intend ed only for the provid er named. Any use or distri bution by any person other than this provid er is strict ly prohib ited. If you receiv e this report in error, please notify us immedi ately at and return the origin al report to us at the addres s above. Thank- you. antonio [facility] [address], [place], [address] 08/12/2023 07:35:34 09/06/19 24 09/06/2023 x-ray imagi ng repor t Patiisela t Name: Torie Blankenship Unit #: [id number] Loc: DIOPAPO Orderi ng Provid er: Mervin Chapman M.D. Accoun t #: [id number] Status : REG CLI Primar y Care Provid er: Alberta Salcedo M.D. Date of Exam : Sex: F Admiss ion Date: : 1960 Age: 62 Exam(s ) XR SHOULD ER LT COMPLE TE 2+V EXAM: XR SHOULD ER LT COMPLE TE 2+V CLINIC AL HISTOR Y: F/U FRACTU RE. TECHNI QUE: 2D digita l imagin g was perfor med of the left should er. Two images were obtain ed. Grashe y and Y views were obtain ed. COMPAR VALERIANO: CR XR SHOULD ER LT COMPLE TE 2+V from 2023 FINDIN GS: BONES: There has been no change in alignm ent of the fractu re involv ing the greate r tubero sity of the left humeru s. No new fractu res identi fied. No bony destru ctive lesion is seen. JOINTS : No disloc ation presen t. SOFT TISSUE : Normal . IMPRES ANA MARIA: Stable fractu re involv ing the greate r tubero sity of the left humeru s. DATA REPOSI TORY: RADIAT ION DOSE DELIVE RED: Ordere d By: Mervin Chapman M.D. CC: ------ ------ ------ ------ ------ ------ ------ ------ ------ ------ ------ ------ - Dictat ed By: Erik Awad M.D. 1551 155 Transc ribed By: Erik Awad 155 This is privil eged, confid ential inform ation intend ed only for the provid er named. Any use or distri bution by any person other than this provid er is strict ly prohib ited. If you receiv e this report in error, please notify us immjessenia turcios at [phone] and return the origin al report to us at the addres s above. [facility] [address], [place], [address] 09/07/2023 08:06:41 11/07/19 24 11/07/2023 x-ray imagi ng repor t Patiisela t Name: Torie Blankenship Unit #: [id number] Loc: DIORS Orderi fernando Provid er: Mervin Chapman M.D. Accoun t #: [id number] Status : REG CLI Primar y Care Provid er: Alberta Salcedo M.D. Date of Exam : Sex: F Admiss ion Date: : 1960 Age: 63 Exam(s ) XR SHOULD ER LT COMPLE TE 2+V EXAM: XR SHOULD ER LT COMPLE TE 2+V INDICA TION: F/U FRACTU RE. COMPAR VALERIANO: No exams were availa ble for compar valeriano TECHNI QUE: 2D digita l imagin g was perfor med. Two views. FINDIN GS: [facility]. No new abnorm alitie s are seen DATA REPOSI TORY: RADIAT ION DOSE DELIVE RED: Ordere d By: Mervin Chapman M.D. CC: ------ ------ ------ ------ ------ ------ ------ ------ ------ ------ ------ ------ - Dictat ed By: Prabhu Moss 141 141 Transc ribed By: Sandy Solo 1415 This is privil eged, confid ential inform ation intend ed only for the provid er named. Any use or distri bution by any person other than this provid er is strict ly prohib ited. If you receiv e this report in error, please notify us immjessenia turcios at and return the origin al report to us at the addres s above. Thank- you. antonio [facility] [address], [place], [address] 11/07/2023 15:44:24 Result Notes None recorded. Problems Name Problem SNOMED Code Status Onset Date Resolution Date Notes Provider Name and Address Organization Details Recorded Time Hyperlip idemia 79123621 Active 200505/10/19 22 - Comments only - Shirley Jean-Baptiste MD - Due for lipids, LFTs Problem Code: E78.5; Problem Code Type: ICD-10; Not Available [facility] 4 00:46:19 [facility] l hyperten ana maria 12808651 Active 200510/24/19 23 - Unchange d - Shirley Jean-Baptiste MD - Elevated today, will have her get some home readings . She thinks she has had lower readings outside of our office. She continue s on Entresto , carvedil ol. Due for BMP. Problem Code: I10; Problem Code Type: ICD-10; Not Available [facility] 4 00:46:19 Acquired absence of cervix and uterus 157927056 Active 1999 Problem Code: Z90.710; Problem Code Type: ICD-10; Not Available [facility] 4 00:46:19 Peripher al vascular disease 002485415 Active 200502/05/20 21 - Comments only - Shirley Jean-Baptiste MD - Clinical ly she actually seems to be doing better, able to walk further without her legs botherin g her much. She is happy about that. Strongly encourag ed her to continue her exercise , did discuss differen t ways to do that in the winter. She continue s on Pradaxa, follows with vascular at [facility]. Problem Code: I73.9; Problem Code Type: ICD-10; Not Available [facility] 4 00:46:19 Nicotine dependen ce 52794203 Active 2002 Problem Code: Z87.891; Problem Code Type: ICD-10; [facility] 4 00[facility]:19 History of malignan t melanoma of the skin 21954639703 8 Active 2002 Problem Code: Z85.820; Problem Code Type: ICD-10; Not [facility] 4 00:46:19 Hypothyr oidism 12787548 Active 200101/09/20 22 - Comments only - Shirley Jean-Baptiste MD - TSH is elevated at 27 although her free T4 is normal at 1.1. I will let endocrin ology decide if they want to make any adjustme nts to her levothyr oxine. 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 She continue s use of the insulin pump, Dexcom. She is on Cozaar. Problem Code: E10.319; Problem Code Type: ICD-10; Not Available [facility] 4 00:46:19 Nonexuda tive age-rela mackenzie macular degenera tion 632435359 Active 2011 Problem Code: H35.31; Problem Code Type: ICD-10; Not [facility] 4 00:46:19 Chronic kidney disease 684159203 Active 200707/12/19 23 - Comments only - Shirley Jean-Baptiste MD - She will be getting a BMP checked at [facility] within the month. Last GFR had improved from 25-36. Problem Code: N18.9; Problem Code Type: ICD-10; Not Available [facility] 4 00:46:19 Implanta tion to cardiova scular system Active 200211/20/19 16 - Comments only - Shirley Jean-Baptiste MD - she continue s [place] [facility] [place] Problem Code: Z95.828; Problem Code Type: ICD-10; Not Available [facility] 4 00:46:18 Cerebral infarcti on 142468216 Active 2006 Problem Code: I63.9; Problem Code Type: ICD-10; Not Available [facility] 4 00:46:19 Disorder of skin appendag e 050544870 Completed 201410/08/2014 09/26/19 15 - Comments only - Geovany Hunt PA-C - Will await today's collecte d wound CX to r/o for recurren t MRSA. In the interim, patient to consider warm compress es and previous ly RXd BACTROBA N OINTMENT to affected areas. Problem Code: L73.9; Problem Code Type: ICD-10; Not Available [facility] 3 04:14:27 Human papillom a virus screenin g Active 2015 Problem Code: Z11.51; Problem Code Type: ICD-10; Not Available [facility] 4 00:46:19 Stool finding 692881786 Active 2015 Problem Code: R19.5; Problem Code Type: ICD-10; Not Available [facility] 4 00:46:18 Postproc edural state finding 462296158 Active 2015 Problem Code: Z98.89; Problem Code Type: ICD-10; Not Available [facility] 4 00:46:18 Major depressi on, single episode 41719396 Active 201504/08/20 20 - Comments only - Shirley Jean-Baptiste MD - she feels she is remainin g stable on her citalopr am. SHe is in a good relation ship, just became engaged. Problem Code: F32.9; Problem Code Type: ICD-10; Not Available [facility] 4 00:46:19 Barretts esophagu s with high grade dysplasi a 61696827693 63122 Active 201607/12/19 23 - Comments only - Shirley Jean-Baptiste MD - , Noted on EGD from 2016, had resolved on EGD 2017. She is due for an EGD. She does continue on pantopra zole. Problem Code: K22.711; Problem Code Type: ICD-10; Not Available [facility] 4 00:46:18 Acute exacerba tion of chronic obstruct jaime pulmonar y disease 786226734 Active 201601/25/20 17 - Comments only - Shirley Jean-Baptiste MD - breathin g back to baseline , followin g with pulmonol ogy Problem Code: J44.1; Problem Code Type: ICD-10; Not Available [facility] 4 00:46:18 Candidia sis of the esophagu s 57743346 Active 2016 Problem Code: B37.81; Problem Code Type: ICD-10; Not Available [facility] 4 00:46:18 Adjustme nt disorder 74299189 Active 201605/26/19 18 - Comments only - Shirley Jean-Baptiste MD - improved and enjoying living on her own. Family supporti ve Problem Code: F43.20; Problem Code Type: ICD-10; Not Available [facility] 4 00:46:18 High enzyme level in serum 176627285 Active 2017 Problem Code: R74.8; Problem Code Type: ICD-10; Not Available [facility] 4 00:46:19 Dizzines s and giddines s 993095354 Active 2017 Problem Code: R42; Problem Code Type: ICD-10; Not Available [facility] 4 00:46:19 Chest pain 20054162 Active 2017 Problem Code: R07.89; Problem Code Type: ICD-10; Not Available [facility] 4 00:46:19 Obstruct jaime sleep apnea syndrome 11292758 Active 2014 Problem Code: G47.33; Problem Code Type: ICD-10; Not Available [facility] 4 00:46:19 Disorder of eyelid 14653323 Active 2017 Problem Code: H02.89; Problem Code Type: ICD-10; Not Available [facility] 4 00:46:19 Lung field abnormal 677329464 Active 201805/08/19 23 - Comments only - Shirley Jean-Baptiste MD - , Chest [facility] in [facility] r indicate d stabilit y. We will plan to repeat by next fall. Problem Code: R91.8; Problem Code Type: ICD-10; Not Available [facility] 4 00:46:19 Pleuriti c pain 9822513 Active 2018 Problem Code: R07.81; Problem Code Type: ICD-10; Not Available [facility] 4 00:46:18 Screenin g for malignan t neoplasm of breast Active 2019 Problem Code: Z12.39; Problem Code Type: ICD-10; Not [facility] 4 00:46:19 Epidermo id cyst of skin 538534477 Active 201906/13/19 20 - Comments only - Hermes Daniel - , right posterio r shoulder . Discusse d junior t options of surgery. She wants to go ahead with the excision of the cyst. No contrain dication s or allergie s to the surgery. Problem Code: L72.3; Problem Code Type: ICD-10; Not Available [facility] 4 00:46:19 Lumbosac ral radiculo ernesto 4114841 Active 201906/25/19 20 - Comments only - Hermes Thomasi - Will check CRP and ESR. Ordered x-rays of the lumbar spine and thoracic spine. Prescrib ed oxycodon e 5 mg and advised her to take 1-2 tablets 4 times daily as needed and gabapent in 300 mg and advised her to start taking 1 tablet at bedtime for few nights, then increase to 2 tablets at bedtime for a few nights, and then start adding a morning dose, then 2 tablets during the day and 2 tablets at bedtime. Problem Code: M54.16; Problem Code Type: ICD-10; Not Available [facility] 4 00:46:18 Anemia 692997950 Active 201907/12/19 23 - Comments only - Shirley Jean-Baptiste MD - , History of. Last hemoglob in in r was 12.0. We will repeat a CBC. Problem Code: D64.9; Problem Code Type: ICD-10; Not Available [facility] 4 00:46:19 Hip pain 90059479 Active 201904/08/20 20 - Comments only - Shirley Jean-Baptiste MD - , and sometime s rt. She did have an MRI of the L-S spine and teleheal visit with elie merrill earlier this year with dx of disk herniati on causing some nerve compress ion. They recommen ded conserva tive tx for now, includin g PT which Casandra has not started. She is amenable to starting this now. Problem Code: M25.559; Problem Code Type: ICD-10; Not Available [facility] 4 00:46:19 Adult health examinat ion Active 201907/12/19 23 - Comments only - Shirley Jean-Baptiste MD - Due for mammogra m, up-to-da te with low-dose chest CT Problem Code: Z00.00; Problem Code Type: ICD-10; Not Available [facility] 4 00:46:19 Secondar y focal hyperhid rosis [id number] 104 Active 201910/24/19 23 - Comments only - Shirley Jean-Baptiste MD - Which is ongoing, getting frustrat ing for her. She is wonderin g. Thing else that can be checked or done. TFTs. She is hypothyr oid on levothyr oxine. Problem Code: L74.52; Problem Code Type: ICD-10; Not Available [facility] 4 00:46:20 Hyperkal emia 48556084 Active 2019 Problem Code: E87.5; Problem Code Type: ICD-10; Not Available [facility] 4 00:46:18 Swelling 84180583 Active 202007/26/19 21 - Comments only - Shirley Jean-Baptiste MD - Of left wrist. Nontende r, has not had any pain associat ed with this. Possible it is a ganglion type cyst that s soft enough, now seems to be receding again. If it worsens she will let me know. Not Available [facility] 4 00:46:19 Hypoglyc emia 785658397 Active 2020 Problem Code: E16.2; Problem Code Type: ICD-10; Not Available [facility] 4 00:46:19 Concussi on with no loss of consciou sness 90064642 Active 202010/26/19 21 - Comments only - Shirley Jean-Baptsite MD - No sequela. She feels she is fully recovere d, just had a weeks worth of the last of some headache s, mild fatigue. Problem Code: S06.0x0S ; Problem Code Type: ICD-10; Not Available [facility] 4 00:46:19 Low back pain 780264551 Active 202105/10/19 22 - Comments only - Shirley Jean-Baptiste MD - With some right lower extremit y radiculo ernesto. Thus far she has tried Tylenol, just a one-time dose of gabapent in. She does have gabapent in at the house and I suggeste d she take 150 mg twice during the day and 300 mg at at bedtime, explaine d it may take a week or so before it starts being effectiv e. She can try some diclofen ac, I do not want her to take oral NSAIDs. She asked about IM Toradol but given her recent creatini ne of 1.9 I told her I am not comforta ble with that. She can continue Tylenol. If not improvin g by next week we will consider a short taper of steroids . Problem Code: M54.5; Problem Code Type: ICD-10; Not Available [facility] 4 00:46:19 COVID-19 445807518 Active 202105/10/19 22 - Comments only - Shirley Jean-Baptiste MD - , At her 10-day bill post symptom onset. Has some residual cough but otherwis e she feels her breathin g was actually never affected . If she develops any new symptoms she will let us know. Problem Code: U07.1; Problem Code Type: ICD-10; Not Available [facility] 4 00:46:19 Radiculo ernesto co-occur rent and due to lumbosac ral interver tebral disc disorder [id number] 9103 Active 202108/24/19 22 - Comments only - Shirley Jean-Baptiste MD - She overall is learning to live with this, did meet with I believe the pain clinic and they did not think that there was anything further that could really be done, she continue s to try and exercise regularl y encourag ed her to do her do the same Problem Code: M51.17; Problem Code Type: ICD-10; Not Available [facility] 4 00:46:19 Skin finding 552309263 Active 202108/24/19 22 - Comments only - Shirley Jean-Baptiste MD - We will check a CBC, PT/PTT Problem Code: R23.8; Problem Code Type: ICD-10; Not Available [facility] 4 00:46:18 Eustachi an tube disorder 35159550 Active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
--- OUTSIDE RECORDS SUMMARY | 2023-12-13 18:20 | XMS_ITS ---
Author Organization [facility] Billing Info Address [address] [place] [address] [place] [address] Care Team Providers Care Refuse Laborer Name Role Phone GIA PATRICIO Unavailable [phone] REASON FOR VISIT hospital f/u Encounters Encounter Location Date Provider Diagnosis [id number] [place] [address] [place], [place] [id number] 04/25/2023 GIA PATRICIO Chronic obstructive pulmonary disease with (acute) exacerbation J44.1 ; Hypoxemia R09.02 ; Heart failure, unspecified I50.9 and Pneumonia, unspecified organism J18.9 Assessments Encounter Date Diagnosis (ICD Code) Assessment Notes Treat ment Notes Treatment Clinical Notes 04/25/2023 Chronic obstructive pulmonary disease with (acute) exacerbation (ICD-10 - J44.1) 04/25/2023 Hypoxemia (ICD-10 - R09.02) 04/25/2023 Heart failure, unspecified (ICD-10 - I50.9) 04/25/2023 Pneumonia, unspecified organism (ICD-10 - J18.9) Plan Of Treatment No Information
--- OUTSIDE RECORDS SUMMARY | 2023-12-13 18:20 | XMS_ITS | Continuity of Care Document ---
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 discharg e Not Available Not Available Not [...] by oral route. 10/05 completed started by [facility] Not Available Not Available Not Available [...] from 1 capsule daily 01/20 completed from [facility] discharg e Not Available Not Available Not [...] Available Not Available Not Available Dexcom G6 Director Of Grants DX: E10.65 E10.319 Replace every 3 years [...] Avai lable Vitals Date Recorded Body height Body mass index (BMI) Body weight Oxygen saturation Oxygen saturation in Arterial blood by Pulse oximetry Heart rate Respiratory rate Systolic blood pressure Diastolic blood pressure Provider Name and Address Organization Details Last Updated DateTime 4 168.198 8 cm 24.8 kg/m2 41740.3 8 g 93 % 93 % 67 /min 16 /min 162 mm[Hg] 64 mm[Hg] Braydon Rodriges MA [facility] 14:08:30 Social History Question Answer Notes LastModified by Organizat ion Details LastModified Time Tobacco Smoking Status Former Smoker JEANIE Aguilar, [facility] 06/01/2023 14:58:18 When Did You Quit Smoking? 1-5yearssincel chucho coyle Information not available 06/01/2023 Date Of Most Recent HSA 10/06/2023 [email or web address] Information not available 10/06/2023 Would You Say That, In General, Your Health Is Fair [email or web address] Information not available 10/06/2023 How Often Does Anyone, Including Family, Physically Hurt You? Never Information not available 10/06/2023 How Often Does Anyone, Including Family, Insult Or Talk Down To You? Never [email or web address] Information no t available 10/06/2023 How Often Does Anyone, Including Family, Threaten You With Harm? Never [email or web address] Information not available 10/06/2023 How Often Does Anyone, Including Family, Scream Or Curse At You? Never [email or web address] Information not available 10/06/2023 Within The Past 12 Months, You Worried That Your Food Would Run Out Before You Got Money To Buy More. Never True [email or web address] Information n ot available 10/06/2023 Within The Past 12 Months, The Food You Bought Just Didn't Last And You Didn't Have Money To Get More. Never True [email or web address] Information n ot available 10/06/2023 How Hard Is It For You To Pay For The Very Basics Like Food, Housing, Medical Care, And Heating? Would You Say It Is: Not Hard At All Information not available 10/06/2023 In The Past 12 Months, Has Lack Of Reliable Transportation Kept You From Medical Appointments, Meetings, Work Or From Getting Things Needed For Daily Living? No [email or web address] Information not available 10/06/2023 What Is Your Housing Situation Today? I Have Housing. [email or web address] Information not available 10/06/2023 How Often In The Past Year Have You Used Marijuana (including Smoking, Vaping, Dabbing, Or Edibles)? Never [email or web address] Information not available 10/06/2023 How Often In The Past Year Have You Used Prescription Medications That Were Not Prescribed To You? Never Information n ot available 10/06/2023 How Often In The Past Year Have You Taken Your Own Prescription Medication More Than The Way It Was Prescribed Or For Different Reasons Than Its Intended Purpose? Never [email or web address] Information no t available 10/06/2023 How Often In The Past Year Have You Used Other Drugs (for Example, Heroin, Cocaine, Meth, Salvia, Inhalants)? Never [email or web address] Information not available 10/06/2023 Have You Ever Used IV Drugs? No [email or web address] Information not available 10/06/2023 What Matters Most To You? My Shoulder Information not available 10/06/2023 During The Past Four Weeks Has Your Physical And Emotional Health Limited Your Social Activities With Family And Friends, Neighbors, Or Groups? Slightly [email or web address] Information not available 10/06/2023 During The Past Four Weeks, Was Someone Available To Help You If You Needed And Wanted Help? (For Example, If You [place] Very Nervous, Lonely, Or Blue; Got Sick And Had To Stay In Bed; Needed Someone To Talk To; Needed Help With Daily Chores; Or Needed Help Just Taking Care Of Yourself.) Yes- As Much As I Wanted [email or web address] Information not available 10/06/2023 During The Past Four Weeks, What Was The Hardest Physical Activity You Could Do For At Least 2 Minutes? Moderate Information not available 10/06/2023 Can You Get To Places Out Of Walking Distance Without Help? (For Example, Can You Travel Alone On Buses Or Taxis, Or Drive Your Own Car?) Yes [email or web address] Information not available 10/06/2023 Can You Go Shopping For Groceries Or Clothes Without Someone? s Help? Yes [email or web address] Information not available 10/06/2023 Can You Prepare Your Own Meals? Yes [email or web address] Information not available 10/06/2023 Can You Do Your Housework Without Help? Yes [email or web address] Information not available 10/06/2023 Because Of Any Health Problems, Do You Need The Help Of Another Person With Your Personal Care Needs Such As Eating, Bathing, Dressing, Or Getting Around The House? No Information not available 10/06/2023 Can You Handle Your Own Money Without Help? Yes [email or web address] Information not available 10/06/2023 Are You Having Difficulties Driving Your Car? No [email or web address] Information no t available 10/06/2023 Do You Always Fasten Your Seat Belt When You Are In A Car? Yes- Usually [email or web address] Information not available 10/06/2023 How Often During The Past Four Weeks Have You Been Bothered By Any Of The Following Problems? Falling Or Dizzy When Standing Up? Never Information not available 10/06/2023 Sexual Problems? Never [email or web address] Informat ion not available 10/06/2023 Trouble Eating Well? Never eigqurqi79 Information not available 10/06/2023 Teeth Or Denture Problems? Never Information not available 10/06/2023 Problems Using The Telephone? Never [email or web address] Information not available 10/06/2023 Tiredness Or Fatigue? Seldom [email or web address] Information not available 10/06/2023 Have You Had 2 Or More Falls Or Sustained An Injury With A Fall In The Last Year? Yes [email or web address] Information no t available 10/06/2023 Do You Have Difficulty With Walking Or Balance? Yes [email or web address] Information not available 10/06/2023 Do You Currently Use A Hearing Device? No [email or web address] Information not available 10/06/2023 Do You Currently Have Any Trouble With Your Vision? Yes [email or web address] Information no t available 10/06/2023 Do You Exercise For About 20 Minutes Three Or More Days A Week? Yes- Some Of The Time [email or web address] Information not available 10/06/2023 Are There Any Safety Concerns In Your Home (see Attached CDC Pamphlet)? No Information not available 10/06/2023 How Often Do You Have Trouble Taking Medicines The Way You Have Been Told To Take Them? I Always Take Them As Prescribed [email or web address] Information not available 10/06/2023 How Confident Are You That You Can Control And Manage Most Of Your Health Problems? Very Confident [email or web address] Information not available 10/06/2023 Do You Currently Have Any Difficulty With Your Hearing? No [email or web address] Information not available 10/06/2023 Date Of Most Recent SBINS 10/06/2023 [email or web address] Information not available 10/06/2023 What Was The Date Of Your Most Recent Tobacco Screening? 06/01/2023 [email or web address] Information not available 06/01/2023 What Is Your Current Pack Years? 30ry nicole [email or web address] Information not available 06/01/2023 How Much Tobacco Do You Smoke? No [email or web address] Information not available 06/01/2023 Has Tobacco Cessation Counseling Been Provided? No Information not available 06/01/2023 Do You Or Have You Ever Used Any Other Forms Of Tobacco Or Nicotine? No [email or web address] Information not available 06/01/2023 Sex: Female Functional Status None recorded. Mental Status None recorded. Family History Nothing Reported Notes:*Problem: Mother: pass ed 03/07/2021; age 88. HTN, COPD, Heart issues(had had a silent IA) Father: age 54 cause CAD, IA Sisters: one had IA, Brothers: none Children: 2 born 80 and , male and female, son with asthma also [...] preservative free, adsorbed 01/22/2019 completed Not Available [facility] 05/19/2023 00:46:20 Tdap 12/09/2008 completed Not Available [facility] 00:46:20 Novel [id number]-[id number], all formulations 03/12/2009 completed Not Available [facility] 05/19/2023 00:46:20 Influenza, split virus, trivalent, preservative 02/08/2018 completed Not Available [facility] 05/19/2023 00:46:20 Influenza, split virus, quadrivalent, PF 01/06/2022 completed Not Available [facility] 05/19/2023 00:46:20 Influenza, split virus, quadrivalent, PF 01/22/2019 completed Not Available [facility] 05/19/2023 00:46:20 Influenza, split virus, quadrivalent, PF 02/02/2021 completed Not Available [facility] 05/19/2023 00:46:20 Influenza, split virus, quadrivalent, PF 04/07/2020 completed Not Available [facility] 05/19/2023 00:46:20 zoster recombinant 12/05/2019 completed Not Available [facility] 05/19/2023 00:46:20 zoster recombinant 04/07/2020 completed Not Available [facility] 05/19/2023 00:46:20 COVID-19, mRNA, LNP-S, PF, 100 mcg/0.5mL dose or 50 mcg/0.25mL dose 05/21/2020 completed Not Available [facility] 05/19/2023 00:46:20 COVID-19, mRNA, LNP-S, PF, 100 mcg/0.5mL dose or 50 mcg/0.25mL dose 06/18/2020 completed Not Available [facility] 05/19/2023 00:46:20 COVID-19, mRNA, LNP-S, bivalent, PF, 30 mcg/0.3 mL dose 01/06/2022 completed Not Available [facility] 05/19/19 00:46:20 pneumococcal polysaccharide PPV23 03/13/2007 completed Not Available [facility] 2023 00:46:20 pneumococcal polysaccharide PPV23 03/22/2000 completed Not Available [facility] 2023 00:46:20 influenza, unspecified formulation 12/31/2008 completed Not Available [facility] 05/19/2023 00:46:20 influenza, unspecified formulation 12/31/2009 completed Not Available [facility] 05/19/2023 00:46:20 influenza, unspecified formulation 01/02/2017 completed Not Available [facility] 05/19/2023 00:46:20 influenza, unspecified formulation 01/12/2016 completed Not Available [facility] 05/19/2023 00:46:20 influenza, unspecified formulation 01/17/2017 completed Not Available [facility] 05/19/2023 00:46:20 influenza, unspecified formulation 01/30/2014 completed Not Available [facility] 05/19/2023 00:46:20 influenza, unspecified formulation 02/07/2008 completed Not Available [facility] 05/19/2023 00:46:20 influenza, unspecified formulation 02/15/2011 completed Not Available [facility] 05/19/2023 00:46:20 Influenza, split virus, quadrivalent, PF 01/24/2023 completed Not Available [facility] 05/19/2023 00:46:20 Past Encounters Encounter ID Performer Location Encounter Start Date Encounter Closed Date Diagnosis/Indication Diagnosis SNOMED-CT Code Diagnosis ICD10 Code [id number] THAIS MORGAN [facility] [address] [place] [address] 12/13/2023 13:56:54 12/13/2023 14:54:35 Acute cystitis 88723918 N30.01 Cellulitis of right lower limb 0278916447 9220627 L03.115 Hypothyroidism 04666480 E03.9 Health Concerns Section Related Observation LastModified by Organization Detai ls LastModified Time None Recorded Concern Status LastModified by Organization Details LastModified Time None Recorded Payers Encounter Date Sequence Insurance Name Policy Number Policy Mckinnon Covered Member ID Mckinnon Member ID Guarantor Name 12/13/2023 1 [employer] (MEDICARE REPLACEMENT HMO) Jennifer Snyder [id number] Jennifer Snyder 12/13/2023 2 [facility] (MEDICAID) Jennifer Snyder [id number] Jennifer Snyder Notes Date Note Type Note Provider Name and Address Organization Details Recorded Time 12/13/2023 text/html HPI Notes: Denice dorsey presents [...] tolerated cephalosporins in the past. [address], [place], [address], [facility]. 12/13/2023 15:40:55 OBGyn Episode No OBEpisode recorded.
--- OUTSIDE RECORDS SUMMARY | 2023-12-13 18:20 | XMS_ITS ---
Author Organization [facility] Billing Info Address [address] [place] [address] [place] [address] Care Team Providers Care Mixed [employer] Name Role Phone GIA PATRICIO Unavailable [phone] REASON FOR VISIT hospital f/u Encounters Encounter Location Date Provider Diagnosis [id number] [place] [address] [place], [place] [id number] 04/26/2023 GIA PATRICIO Chronic obstructive pulmonary disease with (acute) exacerbation J44.1 ; Hypoxemia R09.02 ; Heart failure, unspecified I50.9 and Pneumonia, unspecified organism J18.9 Assessments Encounter Date Diagnosis (ICD Code) Assessment Notes Treat ment Notes Treatment Clinical Notes 04/26/2023 Chronic obstructive pulmonary disease with (acute) exacerbation (ICD-10 - J44.1) 04/26/2023 Hypoxemia (ICD-10 - R09.02) 04/26/2023 Heart failure, unspecified (ICD-10 - I50.9) 04/26/2023 Pneumonia, unspecified organism (ICD-10 - J18.9) Plan Of Treatment No Information
--- OUTSIDE RECORDS SUMMARY | 2023-12-13 18:20 | XMS_ITS | Continuity of Care Document ---
Author Organization [facility] Ambulatory Clinics Address [address] [place] [address] Care Team Providers Care Bolt Sawyer Name Role Phone ZOFIA JEAN-BAPTISTE Primary Care Physician [phone] Encounter [facility] NBR [id number] Date(s): 11/30/23 - 11/30/23 [facility] Ambulatory Clinics [address] [place], [place] [address] Encounter Diagnosis Lopez's esophagus(Discharge Diagnosis) - 11/30/23 Dysphagia(Discharge Diagnosis) - 11/30/23 Discharge Disposition: Home or Self Care Attending Physician: Mackenzie Ibrahim APRN Allergies, Adverse Reactions, Alerts Substance Criticality Severity Reaction Reaction Severity Status penicillin 1 Unable to assess criticality Unknown Active sulfa drugs High criticality Moderate A ctive Bactrim Unable to assess criticality Unknown Active 1unknown as child. tolerates ceftriaxone. Assessment and Plan Extracted from: Title:Office Visit Note-GI Author:Mackenzie Ibrahim APRN Date:11/30/23 1.??Lopez's esophagus??K22 .70 ??History of Lopez's esophagus with high-grade dysplasia. ??She has undergone??ablation for this??in 2017 at [facility]. ??Subsequent EGD showed no signs of Lopez's esophagus in October 2016.?? She was advised to have an??EGD in 1 year.?? No other reports noted.?? Plans were last year??complicated by the fact she??required cardiac??stents??and needed to remain on Plavix for 1 year. ??She had a recent stent??in the past 4 to 5 months.?? Will obtain clearance from cardiology and anesthesia before proceeding??with planned EGD for??surveillance.?? Continue pantoprazole 40 mg daily.?? I will see patient 2 weeks following EGD to discuss findings and make further??commendations. ?? 2.??Dysphagia??R13.10 ??EGD as above however patient??is having dysphagia liquids??which suggests dysmotility??and less likely??mechanical obstruction.?? Will obtain barium swallow with speech??therapy??for initial evaluation. ??Once we obtain??approval to proceed with EGD??we will schedule accordingly.?? Patient is advised to go to emergency room for any food bolus impactions??however her dysphagia is with solids only.? Ordered: XR Barium Swallow, 11/30/23, Routine, Reason: dysphagia of liquids, with ST, Transport Mode: Ambulatory, Dysphagia, ABN Status: Not Required ?? Orders: Follow-up Appointment Request [email or web address], *Est. 12/21/23 +/- 4 days, Future Order, In Approximately, [facility] Gastroenterology Up-to-date with colonoscopy. ?? Voice recognition software utilized which may result in minor color printer operator error. ? Future Appointments Future Scheduled Tests Radiology* XR Barium Swallow 11/30/23 Functional Status 11/30/23 Other exposure to Infectious Disease Non e Medications amLODIPine 5 mg oral tablet 5 [...] Refill(s) Start Date: 01/21/22 Status: Ordered rosuvastatin 10 mg oral tablet 10 mg = 1 tab, Oral, Daily, # 60 tab, 0 Refill(s) Start Date: 04/20/23 Status: Ordered Systane Complete Optimal Dry Eye Relief ophthalmic solution 1 drops, Eye-Both, 5 times per day, PRN as needed for dry eyes, 0 Refill(s) Start Date: 04/20/23 Status: Ordered Problem List Condition Confirmation Course [...] Most recent to oldest [Reference Range]: 1 Apical Heart Rate [60-100 bpm] 70 bpm (11/30/23 9:37 AM) Blood Pressure [90-140/60-90 mmHg] 158/7 0mmHg *HI* (11/30/23 9:37 AM) Mean Arterial Pressure, Cuff [65-140 mmH g] 99 mmHg (11/30/23 9:37 AM) Weight 70.4 kg (11/30/23 9:37 AM) Weight Measured (lbs) 155.205 lb (11/30/23 9:37 AM) Weight Dosing 70.400 kg (11/30/23 9:37 AM) [place] Body Weight Calculated 61.6 kg (11/30/23 9:37 AM) Height 170.18 cm (11/30/23 9:37 AM) Height/Length Measured (inches) 67 inch (11/30/23 9:37 AM) BSA Measured 1.82 m2 (11/30/23 9:37 AM) Body Mass Index 24.31 kg/m2 (11/30/23 9:37 AM) Social History Social History Type Response Tobacco Current some day tob acco user Tobacco Use:. 3 per day. Sex Sex Representation Female (finding) Physician Outpatient Note * Mackenzie Ibrahim APRN: PERFORM Event Display: Office Clinic Note Physician Authored Date: [id number] SEAN BRANCH :1960 Age:63 years Sex:Female Visit Date:11/30/2023 Primary Care Physician: ZOFIA JEAN-BAPTISTE Chief Complaint Lopez's and dysphagia History of Present Illness Patient is a 63-year-old female here today with request of??Dr. Jean-Baptiste for??Lopez's esophagus. ??Established patient who was last seen??on 02/21/2022??with same concerns. ??She reports being told she had??Lopez's esophagus with high-grade dysplasia and had ablation.?The procedure was delayed??in 2021??as she had recently had??drug-eluting??cardiovascular stents that required??Plavix therapy for. ??She is unsure where she has done, thinks it was at [facility].?? EGD done in 2018 showed nosigns of Lopez's esophagus.?? She states she is never had any pyrosis or dyspepsia.?? Currently she complains of dysphagia of saliva??and more upper airway causing her to cough. ??Denies any dysphagia of solids today. ??Denies abdominal pain, nausea, vomiting, constipation, diarrhea, melena or hematochezia. ??Weight and appetite is stable.?? Denies any globus sensation. ?? She denies any changes??in her symptoms continues to have dysphagia for liquids. ??Previous barium swallow that was ordered but was not completed by the patient. ??She denies any pyrosis or dyspepsia.?? She states that using a chin tuck maneuver??helps with swallowing.?? In the last??4 months patient has had??another cardiovascular stent??placed at [facility]. ??She follows with Dr. Jade.?? She was told she needed to be on Plavix for 3 months??before stopping. ?? She denies any abdominal pain, nausea or vomiting. ??Denies constipation or diarrhea.?? Denies any melena or hematochezia.?? Weight and appetite are stable. ?? On pantoprazole 40 mg daily. ?? EGD: -06/22/2016??suspicion of short segment Lopez's esophagus.Small hiatal hernia.Areas were ablated??for Lopez's esophagus. -10/24/2016 at [facility]??diffuse candidiasis??the esophagus.?? Esophagus noted at the GE junction, Z-line,??for??midesophagus. ??Mid esophagus??showed mild active??candidiasis??esophagitis. ?? Colonoscopy: -2017 per PCP notes hyperplastic polyp.?? Up-to-date with colonoscopy.?? Up-to-date with colonoscopy. ?? Denies a family history of gastrointestinal cancers. Review of Systems Pertinent positives and negatives are discussed in HPI. Physical Exam Vitals & Measurements HR:??70??(Apical)?? BP:??158/70?? SpO2:??97%?? HT:??170.18??cm?? WT:??70.4??kg?? BMI:??24.31?? BSA:??1.82?? General: Well-nourished well-developed female??in no acute distress. HEENT: Head is normocephalic, trachea midline, and no cervical lymphadenopathy. Respiratory: Respirations are even and unlabored. ??Lungs are clear to auscultation. Cardiovascular: Regular rate and rhythm with S1 and S2. Abdomen: Positive bowel sounds x4 quadrants, no masses, no guarding, no tenderness. ??No hepatosplenomegaly. ??Abdomen is soft. Skin: Warm, dry, and pink. Neurological: Alert and oriented x3, speech is clear and gait is steady. Psychological: Pleasant, calm and cooperative. Assessment/Plan 1.??Lopez's esophagus??K22.70 ??History of Lopez's esophagus with high-grade dysplasia. ??She has undergone??ablation for this??in 2016 at [facility]. ??Subsequent EGD showed no signs of Lopez's esophagus in October 2016.?? She was advised to have an??EGD in 1 year.?? No other reports noted.?? Plans were last year??complicated by the fact she??required cardiac??stents??and needed to remain on Plavix for 1 year. ??She had a recent stent??in the past 4 to 5 months.?? Will obtain clearance from cardiology and anesthesia before proceeding??with planned EGD for??surveillance.?? Continue pantoprazole 40 mg daily.?? I will see patient 2 weeks following EGD to discuss findings and make further??commendations. ?? 2.??Dysphagia??R13.10 ??EGD as above however patient??is having dysphagia liquids??which suggests dysmotility??and less likely??mechanical obstruction.?? Will obtain barium swallow with speech??therapy??for initial evaluation. ??Once we obtain??approval to proceed with EGD??we will schedule accordingly.?? Patient is advised to go to emergency room for any food bolus impactions??however her dysphagia is with solids only.? Ordered: XR Barium Swallow, 11/30/23, Routine, Reason: dysphagia of liquids, with ST, Transport Mode: Ambulatory, Dysphagia, ABN Status: Not Required ?? Orders: Follow-up Appointment Request [email or web address], *Est. 12/21/23 +/- 4 days, Future Order, In Approximately, [facility] Gastroenterology Up-to-date with colonoscopy. ?? Voice recognition software utilized which may result in minor color printer operator error. Future Orders XR Barium Swallow, 11/30/23, Routine, Reason: dysphagia of liquids, with ST, Transport Mode: Ambulatory, Dysphagia, ABN Status: Not Required Problem List/Past Medical History Ongoing Lopez's esophagus Chronic kidney disease Claudication Concussion COPD (chronic obstructive pulmonary disease) Depression Diabetes DJD (degenerative joint disease) Dysphagia ETD (eustachian tube dysfunction) Femoral-popliteal bypass graft occlusion Hematochezia History of heart artery stent Hypertension Hypoglycemia Hypothyroid Lung nodule Malignant melanoma MANISH (obstructive sleep apnea) PVD (pulmonary valve disease) Tobacco user Historical COPD exacerbation COVID-19 EF 30% Procedure/Surgical History ???Placement of stent in cardiac conduit Medications amLODIPine 5 mg oral tablet, 5 mg= 1 tab, Oral, Daily aspirin 81 mg oral capsule, 81 mg= 1 cap, Oral, Daily carvedilol 6.25 mg oral tablet, 6.25 mg= 1 tab, Oral, BID citalopram 20 mg oral tablet, 20 mg= 1 tab, Oral, Daily dabigatran 75 mg oral capsule, 75 mg= 1 cap, Oral, BID Entresto 49 mg-51 mg oral tablet, 1 tab, Oral, BID ferrous gluconate 324 mg (38 mg elemental iron) oral tablet, 324 mg= 1 tab, Oral, Daily Jardiance 10 mg oral tablet, 10 mg= 1 tab, Oral, Daily levothyroxine 175 mcg (0.175 mg) oral tablet, 175 mcg= 1 tab, Oral, Daily levothyroxine 25 mcg (0.025 mg) oral tablet, 25 mcg= 1 tab, Oral, Mon/Fri magnesium (as chloride)-calcium (as carbonate) 71 mg-118 mg oral delayed release tablet, 2 tab, Oral, Daily NovoLOG, See Instructions pantoprazole 40 mg oral delayed release tablet, 40 mg= 1 tab, Oral, BID rosuvastatin 10 mg oral tablet, 10 mg= 1 tab, Oral, Daily Systane Complete Optimal Dry Eye Relief ophthalmic solution, 1 drops, Eye-Both, 5 times per day, PRN Allergies sulfa drugs Bactrim penicillin Social History Alcohol Current, 1-2 times per week Electronic Cigarette/Vaping Electronic Cigarette Use: Never. Home/Environment Lives with Alone. Living situation: Home/Independent. Home equipment: Insulin pump. Substance Use Never Tobacco Current some day tobacco user Tobacco Use:. 3 per day. Family History Family history is negative Electronically Signed on 11/30/2023 12:40 EDT Mackenzie Ibrahim APRN Patient Care team information Care Team Personnel Name: ZOFIA JEAN-BAPTISTE Position: No Access Member Role: Primary Care Physician Address: [address] [place] [id number] [place] Care Team Related Persons Name: MONCHO MOYER Name: HAROLDO MEJIA Insurance Providers Guarantor name: SEAN BRANCH Health Plan Information #: 2 Payer: [place]ICAID [place] Member Number: [id number] Policy Number: NA Health Plan Information #: 1 Payer: [employer] Member Number: [id number] Policy Number: [place] Health Plan Information #: 3 Payer: FOR LIFE Member Number: NA Policy Number: NA
--- OUTSIDE RECORDS SUMMARY | 2023-12-13 18:20 | XMS_ITS | Patient Health Record ---
Author Organization [facility] Billing Info Address [address] [place] [address] [place] [address] Care Team Providers Care Ambulatory Care Name Role Phone AMANDAGIA ENCISO Unavailable [phone] JAMES MIRELES Unavailable [phone] Reason For Referral No Information Social History Tobacco Use: Social History Observation Description Date Smoking Status WARNING: Information temporarily unavailable Tobacco Status: Question Answer Notes Patient is a never smoker Encounters Encounter Location Date Provider Diagnosis [address] [place] [address] [place], [place] [id number] 04/21/2023 GIA PATRICIO Chronic obstructive pulmonary disease with (acute) exacerbation J44.1 ; Hypoxemia R09.02 ; Heart failure, unspecified I50.9 and Pneumonia, unspecified organism J18.[address] [place] [address] [place], [place] [id number] 04/22/2023 GIA PATRICIO Chronic obstructive pulmonary disease with (acute) exacerbation J44.1 ; Hypoxemia R09.02 ; Heart failure, unspecified I50.9 and Pneumonia, unspecified organism J18.[address] [place] [address] [place], [place] [id number] 04/23/2023 GIA PATRICIO Chronic obstructive pulmonary disease with (acute) exacerbation J44.1 ; Hypoxemia R09.02 ; Heart failure, unspecified I50.9 and Pneumonia, unspecified organism J18.[address] [place] [address] [place], [place] [id number] 04/24/2023 JAMES MIRELES Chronic obstructive pulmonary disease with (acute) exacerbation J44.1 ; Hypoxemia R09.02 ; Heart failure, unspecified I50.9 and Pneumonia, unspecified organism J18.[id number] [place] [address] [place], [place] [id number] 04/25/2023 GIA PATRICIO Chronic obstructive pulmonary disease with (acute) exacerbation J44.1 ; Hypoxemia R09.02 ; Heart failure, unspecified I50.9 and Pneumonia, unspecified organism J18.[id number] [place] [address] [address] [place], [place] [id number] 04/26/2023 GIA PATRICIO Chronic obstructive pulmonary disease [...] - J44.1) 04/26/2023 Hypoxemia (ICD-10 - R09.02) 04/25/2023 Hypoxemia (ICD-10 - R09.02) 04/24/2023 Hypoxemia (ICD-10 - R09.02) 04/23/2023 Hypoxemia (ICD-10 - R09.02) 04/22/2023 Hypoxemia (ICD-10 - R09.02) 04/21/2023 Hypoxemia (ICD-10 - R09.02) 04/22/2023 Heart failure, unspecified (ICD-10 - I50.9) 04/23/2023 Heart failure, unspecified (ICD-10 - I50.9) 04/24/2023 Heart failure, unspecified (ICD-10 - I50.9) 04/25/2023 Heart failure, unspecified (ICD-10 - I50.9) 04/26/2023 Heart failure, unspecified (ICD-10 - I50.9) 04/21/2023 Heart failure, unspecified (ICD-10 - I50.9) 04/21/2023 Pneumonia, unspecified organism (ICD-10 - J18.9) 04/26/2023 Pneumonia, unspecified organism (ICD-10 - J18.9) 04/25/2023 Pneumonia, unspecified organism (ICD-10 - J18.9) 04/24/2023 Pneumonia, unspecified organism (ICD-10 - J18.9) 04/23/2023 Pneumonia, unspecified organism (ICD-10 - J18.9) 04/22/2023 Pneumonia, unspecified organism (ICD-10 - J18.9) Plan Of Treatment No Information Insurance Providers Payer Name Payer Address Payer Phone Subscriber Number Group Number Insured Name Patient Relationship to Insured Coverage Start Date Coverage End Date [facility] [address] [address] [place], [place] [id number] Jennifer Mar Self - patient is the insured 4 4 [facility] [address] [place], [place] [id number] Jennifer Mar Self - patient is the insured 4 4
--- OUTSIDE RECORDS SUMMARY | 2023-12-13 18:20 | XMS_ITS ---
Author Organization [facility] Billing Info Address [address] [place] [address] [place] [address] Care Team Providers Care Instrument Repair Specialist Name Role Phone CHIJAMES Ozuna Unavailable [phone] REASON FOR VISIT hospital f/u Encounters Encounter Location Date Provider Diagnosis [id number] [place] [id number] 04/24/2023 JAMES MIRELES Chronic obstructive pulmonary disease with (acute) exacerbation J44.1 ; Hypoxemia R09.02 ; Heart failure, unspecified I50.9 and Pneumonia, unspecified organism J18.9 Assessments Encounter Date Diagnosis (ICD Code) Assessment Notes Treat ment Notes Treatment Clinical Notes 04/24/2023 Chronic obstructive pulmonary disease with (acute) exacerbation (ICD-10 - J44.1) 04/24/2023 Hypoxemia (ICD-10 - R09.02) 04/24/2023 Heart failure, unspecified (ICD-10 - I50.9) 04/24/2023 Pneumonia, unspecified organism (ICD-10 - J18.9) Plan Of Treatment No Information
--- OUTSIDE RECORDS SUMMARY | 2023-12-13 18:22 | XMS_ITS | Encounter Summary ---
[place] [address] Care Team Providers Care Rn Digestive Name Role Phone Shirley Yu MD Primary Care Provider [phone] Encounter Details Date Type Department Care Team (Late st Contact Info) Description 04/19/2023 External [place] [id number] Social History Tobacco Use Types Packs/Day Years Used Date Smoking Tobacco: Former Cigarettes 0.5 30 0 08/14/1984 - 08/14/2014 Smokeless Tobacco: Never Comments:Smoked 1 ppd for 30 years Alcohol Use Standard Drinks/Week Comments Yes 7 (1 standard drink = 0.6 oz pur e alcohol) Sex and Gender Information Value Date Recorded Sex Assigned at Not on file Gender Identity Not on file Sexual Orientation Not on file documented as of this encounter Plan of Treatment Upcoming Encounters Date Type Department Care Team (Late Contact Info) Description 12/19/2023 1:00 PM EDT Tech [place] [address] Marguerite Macias 12/19/2023 3:00 PM EDT Office Visit [place] [address] Gardenia Golden, [facility] [place] [address] 01/29/2024 1:[address] [place] [phone] César Escobar MD [facility] [place] [address] 01/29/2024 2:30 PM EDT Office Visit [place] [phone] César Escobar MD [facility] [place] [address] documented as of this encounter Procedures Procedure Name Priority Date/Time Associated Diagnosis Comments ECG SCAN Routine 04/19/2023 5:06 PM EST ECG SCAN Routine 04/19/2023 4:33 PM EST documented in this encounter Results * Scan Doc: ECG (04/19/2023 5:06 PM EST) Historical Provider MD MEDIA MGR SCAN EX T ORDR/RSLT * Scan Doc: ECG (04/19/2023 4:33 PM EST) Historical Provider MD MEDIA MGR SCAN EX T ORDR/RSLT documented in this encounter Visit Diagnoses Not on filedocumented in this encounter Care Teams Rn Digestive Relationship Specialty Start Date End Date Shirley Yu MD [address] [place] [address] PCP - General 11/19/14 documented as of this encounter
--- OUTSIDE RECORDS SUMMARY | 2023-12-13 18:22 | XMS_ITS | Clinical Summary ---
Author Organization [facility] [place] [address] Care Team Providers Care Body Team Member Name Role Phone Shirley Yu MD Primary Care Provider [phone] Allergies Active Allergy Reactions Criticality Noted Date Comments Penicillins Unknown Penicillin 04/21/2022 Sulfa (Sulfonamide Antibiotics) Other (See Comments) High Renal failure, bleeding Trimethoprim 06/22/2019 Medications Medication Sig Dispensed Refills Start Date End Date Status aspirin 81 mg EC tablet Take 81 mg by mouth daily. Active insulin lispro (HUMALOG) 100 unit/mL injection Inject 55-60 Units subcutaneously continuous. Via insulin pump Active losartan (COZAAR) 100 mg Tablet Take 50 mg by mouth daily. 08/11/2014 Active Diabetic Supplies, Miscellan. Misc Form faxed to [email or web address] for pump supplies. 100 each 12 03/23/2015 Active pantoprazole (PROTONIX) 40 mg Tablet, Delayed Release (E.C.) TAKE ONE TABLET BY MOUTH TWICE A DAY 98 07/26/2016 Active ONETOUCH ULTRA TEST Strip 1 strip by Other route 4 times daily. 4 11/23/2016 Active insulin aspart U-100 (NovoLOG) 100 unit/mL Solution Inject subcutaneously 3 times daily (with meals). Active dabigatran (PRADAXA) 150 mg Capsule Take 1 capsule by mouth 2 times daily. 180 capsule 02/09/2019 Active ferrous gluconate 324 mg (38 mg iron) Tablet TAKE ONE TABLET BY MOUTH EVERY DAY 04/11/2020 Active Magnesium Oxide 500 mg magnesium tablet Take 500 mg by mouth daily. 01/07/2016 Active citalopram (CeleXA) 20 mg Tablet Take by mouth. 08/13/2012 Active rosuvastatin (Crestor) 10 mg tablet Take 10 mg by mouth daily. Active levothyroxine (Synthroid) 175 mcg tablet Take 175 mcg by mouth daily. 01/21/2022 Active carvediloL (Coreg) 6.25 mg Tablet 10/06/2021 Active Jardiance 10 mg tablet Take 10 mg by mouth daily. Active sacubitriL-valsa rtan (Entresto) 49-51 mg tablet Take 1 tablet by mouth 2 times daily. Active furosemide (Lasix) 20 mg tablet Take 20 mg by mouth daily. Active cholecalciferol, Vitamin D3, 50 mcg (2,000 unit) Capsule Take 2,000 Units by mouth daily. Active glucagon (Gvoke HypoPen 2-Pack) 0.5 mg/0.1 mL Auto-Injector Inject 1 mL subcutaneously See Admin Instructions. Active Active Problems Problem Noted Date Diagnosed Date ETD (eustachian tube dysfunction) 12/01/2023 Femoral-popliteal bypass graft occlusion 024 Former smoker 12/01/2023 PVD (pulmonary valve disease) 12/01/2023 CAD (coronary artery disease) 05/17/[address] 12/24/2021 Long-term insulin use 12/24/2021 Lopez's esophagus 10/28/2021 COPD (chronic obstructive pulmonary disease) Degenerative disc disease, lumbar 10/28/2021 Macular degeneration 10/28/2021 Personal history of malignant melanoma of skin 0 10/28/2021 CKD (chronic kidney disease) stage 4, GFR 15-29 ml/min 08/21/2019 Groin hematoma 02/08/2019 PVD (peripheral vascular disease) 01/07/2019 Lung nodule 06/06/2018 Proliferative diabetic retinopathy of left eye 0 05/22/2015 Obesity 02/18/2015 Hypertension 02/18/2015 Hyperlipidemia 02/18/2015 Sleep apnea 02/18/2015 Hypothyroidism 02/18/2015 Depression 02/18/2015 PDR (proliferative diabetic retinopathy) 012 Intermittent claudication 05/25/2011 PAD (peripheral artery disease) 05/25/2011 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 05/25/2011 Carotid stenosis 05/25/2011 Hyperkeratosis palmaris et plantaris 12/17/2010 Type 1 diabetes 04/10/1975 Overview (02/05/2019): A1C is a little high Resolved Problems Problem Noted Date Diagnosed Date Resolved Date Concussion 12/01/2023 12/01/2023 Contusion of left knee 12/01/202311/30 Fracture of toe of left foot 12/01/2023 12/01/2023 Ganglion of left wrist 12/01/202311/30 Hematochezia 12/01/2023 12/01/2023 Hx MRSA infection 12/01/2023 12/01/2023 Infected animal bite of lower leg 12/01/2023 12/01/2023 Infected sebaceous cyst of skin 12/01/2023 12/01/2023 Malignant melanoma 12/01/2023 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 12/01/2023 12/01/2023 Anemia 10/28/2021 12/01/2023 Elevated liver enzymes 10/28/202111/30 Encounters Date Type Department Care Team Description 12/01/2023 Abstract Cardiology at [address] [address] Elsi Barrett, RN 12/01/2023 Telephone Cardiology at [address] [address] Elsi Barrett, senior designer from Last 3 Months Immunizations Name Administration Dates Next Due Influenza PF, Split 01/02/2017 Influenza Trivalent w/Preservative 01/25/2015 Pneumococcal Conjugate (Prevnar 13) 02/18/2015 Pneumococcal Polysaccharide (Pneumovax 23) 04/10 Family History Medical History Relation Comments Myocardial Infarction Brother Diabetes Father Heart Disease Father Colorectal Cancer Maternal Grandfather Cancer Maternal Grandmother Cataracts Mother Chronic Obstructive Pulmonary Disease Mother Hypertension Mother Amblyopia Neg Hx Blindness Neg Hx Glaucoma Neg Hx Macular Degeneration Neg Hx Retinal Detachment Neg Hx Strabismus Neg Hx Stroke Neg Hx Thyroid Disease Neg Hx Relation Status Comments Brother Father Maternal Grandfather Maternal Grandmother Mother Social History Tobacco Use Types Packs/Day Years Used Date Smoking Tobacco: Former Cigarettes 0.5 30 0 08/14/1984 - 08/14/2014 Smokeless Tobacco: Never Tobacco Cessation:Counseling Given: Not Answered Comments:Smoked 1 ppd for 30 years Alcohol Use Standard Drinks/Week Comments Yes 7 (1 standard drink = 0.6 oz pur e alcohol) Sex and Gender Information Value Date Recorded Sex Assigned at Not on file Gender Identity Not on file Sexual Orientation Not on file Last Filed Vital Signs Vital Sign Reading Time Taken Comments Blood Pressure 151/52 05/04/2023 1:51 PM EST Pulse 61 05/04/2023 1:51 PM EST Temperature 36.3 ??C (97.3 ??F) 01/16/2023 2:37 PM ED T Respiratory Rate 18 01/16/2023 2:37 PM EDT Oxygen Saturation 97% 01/16/2023 2:37 PM EDT Inhaled Oxygen Concentration - - Weight 69.9 kg (154 lb) 05/04/2023 1:48 PM EST Height 168.9 cm (5' 6.5) 05/04/2023 1:48 PM EST Body Mass Index 24.48 05/04/2023 1:48 PM EST Plan of Treatment Upcoming Encounters Date Type Department Care Team (Late st Contact Info) Description 12/19/2023 1:00 PM EDT Tech Visit Vascular Lab at [place] [phone] Marguerite Macias 12/19/2023 3:00 PM EDT Office [place] [address] Gardenia Golden, [facility] [place] [address] 01/29/2024 1:[address] [place] [address] César Escobar MD [facility] [place] [address] 01/29/2024 2:30 PM EDT Office [place] [address] César Escobar MD [facility] [place] [address] Health Maintenance Due Date Last Done Comments CT Colonography 1958 Colonoscopy 1958 Colorectal Cancer Screening 1958 FIT DNA 1958 FIT 1958 Sigmoidoscopy (10 year) with FIT yearly 1958 Sigmoidoscopy 1958 HIV screen 1976 Hepatitis C Screening 1976 Tdap adult 1977 Tetanus vaccine 1977 HPV test 1988 PAP Smear 1988 Breast Cancer Share Decision Needed 1998 Breast Cancer screening 1998 Zoster vaccine (1 of 2) 2008 DM Hemoglobin A1c 04/27/2018 01/25/2018, , 08/24/2015, Additional history exists DM Creatinine yearly 07/21/2021 07/21/2020, 03/01/2019, 02/28/2019, Additional history exists DM Urine Microalbumin yearly 07/21/2021, 06/24/2015, 01/14/2015, Additional history exists DM Opthalmology Exam 12/31/2021 12/31/2020, 09/24/2020, 06/04/2020, Additional history exists Covid-19 Vaccine (1 - 2022-2 4 season) 2022 Bone Density Scan 10/22/2023 Pneumoccocal Vaccine: 65+ (3 of 3 - PPSV23 or PCV20) 10/22/2023 02/18/2015, 04/10/2005 Influenza (Flu) vaccine (1 o f 1 - Influenza standard series) 12/10/2023 01/02/2017, 01/25/2015 Medical Devices Implanted Type Area Check Cashier Device Identifier Shelf Expiration Date Model / Serial / Lot Patch,Biol,Xe nosure,.8x8cm ([id number]) - [id number] Implanted:Qty : 1 on 02/04/2019 by Kaity Fontaine MD at [facility] IMPLANTS Right: [employer] 08/05/2024 [id number] / / [id number] Procedures Procedure Name Priority Date/Time Associated Diagnosis Comments LAB SCAN 10/11/2023 12:00 AM EDT HC CREATININE - NON BLOOD Routine 07/21/2020 12:50 PM EDT Stage 3b chronic kidney disease BASIC METABOLIC PANEL Routine 07/21/2020 12:47 PM EDT CKD (chronic kidney disease) stage 3, GFR 30-59 ml/min HEMOGLOBIN A1C Routine 01/25/2018 2:43 PM EDT Other abnormal glucose CKD (chronic kidney disease) stage 3, GFR 30-59 ml/min from Last 3 Months or Most Recently Relevant to Health Maintenance Results * Scan Doc: Lab (10/11/2023 12:00 AM EDT) Narrative 10/11/2023 12:00 AM EDT Ordered by an unspecified provider. Scanning Provider MEDIA MGR SCAN EXT O RDR/RSLT * (ABNORMAL) U Albumin/Cre Ratio (07/21/2020 12:50 PM EDT) Albumin / Creatinin Ratio, Urine 327(H) 0 - 29 mcg/mg [facility] Comment: Reference Ranges: <30 mcg/mg: Normal 30-300 mcg/mg: Moderately increased albuminuria.* >300 mcg/mg: Severely increased albuminuria. * ACEI or ARB recommended if diabetic; suggested if BP>130/80 without diabetes ACEI or ARB strongly recommended if diabetic; recommended if BP>130/80 without diabetes Two of three specimens collected within a 3 to 6 month period should be abnormal before considering a patient to have albuminuria. Transient causes: exercise, fever, infection, CHF, marked hyperglycemia or hypertension. Persistent albuminuria indicates CKD and is an independent risk factor for ASCVD. ADA Standards of Medical Care in Diabetes-2016; KDIGO: Kidney International Supplements (2012) 2, 357? 362 Albumin, Urine 203.0 mg/L [facility] Creatinine, Urine 62 mg/dL [place] [facility] Urine specimen (specimen) 07/21/2020 12:50 PM EDT 07/21/2020 12:56 PM EDT Narrative Resulting Agency Comment Spec In Lab Hussain Rader MD URINE ORDERABLES [facility] [address] * (ABNORMAL) Basic Metabolic Panel (non-fasting) (07/21/2020 12:47 PM EDT) Glucose 179 65 - 199 mg/dL [facility] Comment:Diabetes: >=200 mg/d L plus symptoms Blood Urea Nitrogen 24(H) 8 - 18 mg/dL [facility] Creatinine 1.65(H) 0.70 - 1.20 mg/dL [facility] Sodium 134(L) 135 - 145 mmol/L [facility] Potassium 5.8(H) 3.5 - 5.0 mmol/L [facility] Comment: Please note: ??Patients with WBC >100,000 may have falsely elevated Potassium levels. ??For accurate Potassium quantification in these patients send serum separator tube (gold top) for subsequent determinations. ??Contact the Clinical Chemistry Laboratory if there are any questions. Chloride 99 98 - 107 mmol/L [facility] Carbon Dioxide 27 22 - 31 mmol/L [facility] Anion Gap 8 5 - 15 mmol/L [facility] Calcium 8.9 8.5 - 10.5 mg/dL [facility] Est Glomerular Filtration Rate 33(L) >=60 mL/min/1. 73 m?? [facility] Comment: This patient? s estimated glomerular filtration rate (eGFR) is between 33 mL/min/1.73 m2 (patients with less muscle mass) and 38 mL/min/1.73 m2 (patients with more muscle mass) as determined by the CKD-EPI equation. Assessment of eGFR is not appropriate when creatinine concentrations are rapidly changing. For clinical decisions where creatinine clearance will affect therapy, a 24-hour urine creatinine clearance may be advised. Assignment of CKD stage 1 - 5 for patients with an eGFR near the transition point between stages may be based on clinical assessment of muscle mass and symptoms in addition to eGFR. Blood specimen (specimen) 07/21/2020 12:47 PM EDT 07/21/2020 12:59 PM EDT Narrative Resulting Agency Comment Spec In Lab Hussain Rader MD CHEMISTRY ORDERABLES [facility] [place] [address] * (ABNORMAL) Hemoglobin A1c (01/25/2018 2:43 PM EDT) Hemoglobin A1c 8.4(H) 4.3 - 5.6 % [facility] Comment: Reference Range: 4.3 - 5.6% 5.7 - 6.4% - Increased Risk of Developing Diabetes Mellitus >=6.5% - Consistent with diagnosis of Diabetes Mellitus In the absence of hyperglycemia (i.e. plasma glucose > 200 mg/dL) or classic symptoms of hyperglycemia a repeat measurement of HbA1c should be performed on a separate sample to confirm the diagnosis. Diagnosis and Classification of Diabetes Mellitus, Diabetes Care 2013; 36: Suppl. 1, Q07-92 Estimated Average Glucose 194 mg/dL [facility] Comment: eAG equivalents for HbA1c percentages: HbA1c(%) ?eAG(mg/dL) 6.0 ?126 6.5 ?140 7.0 ?154 7.5 ?169 8.0 ?183 8.5 ?197 9.0 ?212 9.5 ?226 10.0 ? 240 Limitations: The eAG calculation has not been validated on women, individuals below 18 years old and above 70 years old, and individuals with hemoglobinopathies. Additional resources are available on the ADA website. Chandra WELLS, Nikky J, Quinn R, et al. ??Translating the A1C assay into estimated average glucose values. ??Diabetes Care 2008:31(8):8893-2683. Blood specimen (specimen) 01/25/2018 2:43 PM EDT 01/25/2018 2:52 PM EDT Narrative Resulting Agency Comment Spec In Lab Hussain Rader MD CHEMISTRY ORDERABLES [facility] [place] [address] from Last 3 Months or Most Recently Relevant to Health Maintenance Advance Directives Documents on File Type Date Recorded Patient Incident Manager Expl anation Advance Directives and Living Will 05/01/2018 12:21 PM 04/21/2018 Advance Directives and Living Will 05/17/2022 12:09 PM ADVANCE DIRECTIVES * Attempt Cardiopulmonary Resuscitation - Inpatient (Latest Code Status on File) Date Activated Date Inactivated Comments 05/17/2022 1:00 PM 05/17/2022 9:21 PM Question Answer Comments Code Status decision made by: Patient * Attempt Cardiopulmonary Resuscitation - Inpatient Date Activated Date Inactivated Comments 05/17/2022 11:17 AM 05/17/2022 1:00 PM Question Answer Comments Code Status decision made by: Patient * Full Code Date Activated Date Inactivated Comments 02/20/2019 12:51 PM 03/01/2019 6:13 PM Question Answer Comments Does patient have capacity to make decision: Yes * Full Code Date Activated Date Inactivated Comments 02/20/2019 11:51 AM 02/20/2019 12:51 PM Question Answer Comments Does patient have capacity to make decision: Yes * Full Code Date Activated Date Inactivated Comments 02/04/2019 5:05 PM 02/08/2019 3:35 PM Question Answer Comments Does patient have capacity to make decision: Yes Care Teams Body Team Member Relationship Specialty Start Date End Date Shirley Yu MD [address] [place] [address] PCP - General 11/19/14
--- OUTSIDE RECORDS SUMMARY | 2023-12-13 18:22 | XMS_ITS | Encounter Summary ---
Author Organization [facility] [place] [address] Care Team Providers Care Keypuncher Name Role Phone Shirley Yu MD Primary Care Provider [phone] Encounter Details Date Type Department Care Team (Latest Contact Info) Description 04/21/2022 Travel Social History Tobacco Use Types Packs/Day Years Used Date Smoking Tobacco: Former Cigarettes 0.5 30 0 08/14/1984 - 08/14/2014 Smokeless Tobacco: Never Comments:Smoked 1 ppd for 30 years Alcohol Use Standard Drinks/Week Comments No 0 (1 standard drink = 0.6 oz pur e alcohol) Sex and Gender Information Value Date Recorded Sex Assigned at Not on file Gender Identity Not on file Sexual Orientation Not on file documented as of this encounter Plan of Treatment Upcoming Encounters Date Type Department Care Team (Late st Contact Info) Description 12/19/2023 1:00 PM EDT Tech [place] [phone] Marguerite Macias 12/19/2023 3:00 PM EDT Office Visit [place] [phone] Gardenia Golden, [facility] [place] [address] 01/29/2024 1:[address] [place] [address] César Escobar MD [facility] [place] [address] 01/29/2024 2:30 PM EDT Office Visit [place] [address] César Escobar MD [facility] [place] [address] documented as of this encounter Visit Diagnoses Not on filedocumented in this encounter Care Teams Keypuncher Relationship Specialty Start Date End Date Shirley Yu MD [address] [place] [address] PCP - General 11/19/14 documented as of this encounter
--- OUTSIDE RECORDS SUMMARY | 2023-12-13 18:22 | XMS_ITS | Encounter Summary ---
[place] [address] Care Team Providers Care Pipeline Superintendent Division Name Role Phone Shirley Yu MD Primary Care Provider [phone] Reason for Referral * Diagnostic Test (Routine) - Closed Specialty Diagnoses / Procedures Referred By Contac t Referred To Contact Diagnoses S/P bypass graft of extremity PVD (peripheral vascular disease) Procedures Unilat Bypass Graft Assess Epifanio Kent APRN [facility] [place] [address] [facility] [address] [place] [phone] Referral ID Status Reason Start Date Expiration Date V isits Requested Visits Authorized [id number] Closed Specialty Service Requested 04/22/2022 04/22/2023 1 1 * Diagnostic Test (Routine) - Closed Specialty Diagnoses / Procedures Referred By Contpietro t Referred To Contact Diagnoses S/P bypass graft of extremity PVD (peripheral vascular disease) Procedures SHEFALI, legs, multiple levels Epifanio Kent ORE TRIMMER [facility] [place] [address] [facility] [address] [place] [phone] Referral ID Status Reason Start Date Expiration Date V isits Requested Visits Authorized [id number] Closed Specialty Service Requested 04/22/2022 04/22/2023 1 1 * Diagnostic Test (Routine) - Closed Specialty Diagnoses / Procedures Referred By Dominik mcleod Referred To Contact Diagnoses Bilateral carotid artery stenosis Procedures Carotid Duplex, Bilateral Epifanio Kent APRN [facility] [address] [facility] [address] [place] [phone] Referral ID Status Reason Start Date Expiration Date V isits Requested Visits Authorized [id number] Closed Specialty Service Requested 04/22/2022 04/22/2023 1 1 Reason for Visit * Consultation (Routine) - Closed Specialty Diagnoses / Procedures Referred By Contpietro t Referred To Contact Vascular Surgery Diagnoses Leg edema, right Tanski - R LE - 2-6 weeks Cecilia Dickerson [address] [place] [address] [facility] [place] [facility] [address] [place] [phone] Referral ID Status Reason Start Date Expiration Date V isits Requested Visits Authorized [id number] Closed Consult, Test & Treat PCP Updated and/or Approved 03/11/2022 03/11/2023 1 1 Encounter Details Date Type Department Care Team (Late st Contact Info) Description 04/21/2022 2:00 PM EST Office Visit [place] [address] Epifanio Kent ORE TRIMMER [facility] [place] [address] S/P bypass graft of extremity; PVD (peripheral vascular disease); Bilateral carotid artery stenosis Social History Tobacco Use Types Packs/Day Years [...] on file documented as of this encounter Last Filed Vital Signs Vital Sign Reading Time Taken Comments Blood Pressure 165/75 04/21/2022 2:18 PM EST Pulse 72 04/21/2022 2:18 PM EST Temperature - - Respiratory Rate 16 04/21/2022 2:18 PM EST Oxygen Saturation - - Inhaled Oxygen Concentration - - Weight 76.2 kg (168 lb) 04/21/2022 2:18 PM EST Height 170.2 cm (5' 7) 04/21/2022 2:18 PM EST Body Mass Index 26.31 04/21/2022 2:18 PM EST documented in this encounter Progress Notes * Epifanio Kent, ORE TRIMMER - 04/21/2022 2:00 PM EST Vascular Surgery Clinic Visit Reason for visit: PAD HPI: 61 y.o. female with PMH: HTN, HLD, DM on Insulin pump, hyperthyroidism, RLL wedge resection for pulmonary granuloma 06/25,??GINGER/BSO '02 who is here for follow up of carotid stenosis and PVD. She reports she is doing well. Has c/o right hand swelling following a thumb injury ~3 days ago. Mild pain, no wounds. She also endorses BLE edema for several months. She has tried intermittent compression, does not elevate. She denies numbness/tingling of BLE. She remains active, walks and completes ADLs independently daily. She denies claudication, rest pain, tissue loss. She denies CVA/TIA or sx including vision loss, extremity weakness or difficulty speaking. She is a past smoker, having quit in??2015. She takes daily ASA, Pradaxa and statin. Vascular History: 2000 L CEA (Dr Fong) 2004 R CEA (Dr Avendano) 2007 R fem-AK-pop bypass with GSV (Dr Avendano) 2012 L EIA stent (8x60 SE p7), RLE vein graft JACKHAMMER OPERATOR (Dr Avendano) 04/27/18 R GRANTS OFFICER/proximal graft and distal graft/pop JACKHAMMER OPERATOR (6mm and 5mm balloons) 02/04/19 Redo R femoral endarterectomy/profundaplasty, revision of proximal vein graft c/b wound breakdown requiring I&D Patient Active Problem List Diagnosis ??? CKD (chronic kidney disease) stage 4, GFR 15-29 ml/min ??? Groin hematoma ??? PVD (peripheral vascular disease) ??? Lung nodule ??? Proliferative diabetic retinopathy of left eye ??? Obesity ??? Hypertension ??? Hyperlipidemia ??? Sleep apnea ??? Hypothyroidism ??? Depression ??? PDR (proliferative diabetic retinopathy) ??? Intermittent claudication ??? PAD (peripheral artery disease) Overview Note: ??? 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 Carotid stenosis Overview Note: ??? Hyperkeratosis palmaris et plantaris Overview Note: ??? Type 1 diabetes Overview Note: A1C is a little high Current Outpatient Medications Medication Instructions ??? acetaminophen (TYLENOL) 500 mg, Oral, EVERY 4 HOURS PRN ??? aspirin EC 81 mg, DAILY ??? carvediloL (Coreg) 6.25 mg Tablet No dose, route, or frequency recorded. ??? chlorthalidone (Hygroten) 25 mg Tablet No dose, route, or frequency recorded. ??? citalopram (CeleXA) 20 mg Tablet Oral ??? dabigatran (PRADAXA) 150 mg, Oral, 2 TIMES DAILY ??? Diabetic Supplies, Miscellan. Misc Form faxed to [employer] for pump supplies. ??? ferrous gluconate 324 mg (38 mg iron) Tablet TAKE ONE TABLET BY MOUTH EVERY DAY ??? glucagon (GLUCAGEN) 1 mg, Intramuscular, PRN ??? insulin aspart U-100 (NovoLOG) 100 unit/mL Solution Subcutaneous, 3 TIMES DAILY WITH MEALS ??? insulin lispro (HUMALOG) 55-60 Units, CONTINUOUS ??? Levothyroxine (Tirosint) 150 mcg Capsule 0 Refill(s) ??? losartan (COZAAR) 50 mg, Oral, DAILY ??? Magnesium Oxide 250 mg magnesium Tablet Oral ??? Stitch LabsTOUCH ULTRA TEST Strip 1 strip, Other, 4 TIMES DAILY ??? pantoprazole (PROTONIX) 40 mg Tablet, Delayed Release (E.C.) TAKE ONE TABLET BY MOUTH TWICE A DAY ??? rosuvastatin (CRESTOR) 5 mg, Oral, DAILY Allergies Allergen Reactions ??? Sulfa (Sulfonamide Antibiotics) Other (See Comments) Renal failure, bleeding ??? Pcn [Penicillins] Unknown ??? Penicillin ??? Trimethoprim Review of Systems: Constitutional (weight change, fever) - Denies Neuro (dizziness, seizures, numbness, tingling) - Denies Eyes (vision) - Denies Ears, nose, throat (hearing) - Denies Cardiovascular (CP) - Denies Respiratory (SOB) - Denies GI (abd pain, nausea, emesis, blood in stool) - Denies (hematuria, dysuria, frequency) - Denies Muscoloskeletal (extremity pain, weakness) - See HPI Skin (ulcers, rashes) - Denies ?? Physical Exam: BP 165/75 (BP Location (NBP): Left arm, Patient Position: Sitting, BP Cuff Sizes: Adult (25-34 cm)) Pulse 72 Resp 16 Ht 170.2 cm (5' 7) Wt 76.2 kg (168 lb) BMI 26.31 kg/m?? On exam,??she??is in NAD, RRR, CTA B, Abd soft/NT/ND. Pedal pulses are not palpable s/t edema. BLE below-knee edema, 1+ pitting, no wounds. Right hand/finger edema 1+. Neuro non-focal. ?? Studies: 04/21/2022 SHEFALI Findings: Right ?Pressure (mm Hg) ?? SHEFALI ??Waveform ? TBI Dorsalis Pedis (Ankle) Artery ?182 ? 1.08 ??Biphasic-Rev ? Posterior Tibial (Ankle) Artery ??191 ? 1.14 ??Triphasic ? Great Toe ?138 ?0.82 ? Left ? Pressure (mm Hg) ?? SHEFALI ??Waveform ?TBI Brachial Artery ?168 ? Dorsalis Pedis (Ankle) Artery ?98 ?0.58 ??Kittson- Biphasic ?? Posterior Tibial (Ankle) Artery ??94 ?0.56 ??Kittson-Biphasic ? Great Toe ?80 ? 0.48 ? Interpretation: RIGHT: Normal ankle-brachial indices and toe-brachial index at rest. No significant change in the ABIs and improvement in the TBI when compared to previous exam. ?? LEFT: Moderate lower extremity arterial occlusive disease. No significant change in the ABIs and improvement in the TBI when compared to previous exam. 04/21/2022 RLE Graft Duplex Right Fem-Pop AK SEGMENT ? PSV (cm/s) ??EDV ??Location ? Right Inflow Artery (Graft) ?204 ?0 ??Common Femoral, Right ? Inflow Anastomosis, Right ? 78 ?0 ??Common Femoral, Right Right Proximal Graft ?66 ?0 ? Right Mid Graft ? 60 ?5 ? Right Low Thigh (Graft) ? 52 ?0 ? Right Distal Graft ?49 ?0 ? Outflow Anastomosis, Right ?66 ?4 ??Popliteal, Above Knee Right ?? Right Outflow Artery (Graft) ? 104 ?4 ??Popliteal, Above Knee Right ? Interpretation: RIGHT: Patent common femoral artery to above knee popliteal artery bypass graft with no identifiable region of stenosis within the graft. There are slightly elevated velocities noted in the proximal common femoral artery inflow (PSV 204 cm/s; previously 258 cm/s). A/P: 61 y.o. female with PMH: HTN, HLD, DM on Insulin pump, hyperthyroidism, RLL wedge resection for pulmonary granuloma 06/25,??GINGER/BSO '02 who is here for follow up of carotid stenosis and PVD s/p multiple interventions as above. No significant change in R GRANTS OFFICER PSV compared to last study and without any associated symptoms or change in SHEFALI. Will continue to follow. -con't asa, pradaxa, and statin -con't smoking cessation -regular exercise Pt has known recurrent, asymptomatic carotid stenosis s/p B prior CEA's. Carotid Duplex not obtained today. Recommend pt return for testing and I will call with results. Then she should f/u 1 year with carotid duplex, RLE graft duplex and SHEFALI. Epifanio Kent APRN Department of Vascular Surgery documented in this encounter Plan of Treatment Upcoming Encounters Date Type Department Care Team (Late st Contact Info) Description 12/19/2023 1:00 PM EDT Tech Visit [place] [address] Marguerite Macias 12/19/2023 3:00 PM EDT Office [place] [address] Gardenia Golden APRN [facility] [place] [address] 01/29/2024 1:[address] [place] [address] César Escobar MD [facility] [place] [address] 01/29/2024 2:30 PM EDT Office [place] [address] César Escobar MD [facility] [place] [address] documented as of this encounter Results * Unilat Bypass Graft Assess (05/04/2023 12:35 PM EST) VB Text Report Department: Vascular Surgery Lab Patient: [id number] (JENNIFER SNYDER) CPT: 19034 Referring Physician: EPIFANIO EKNT ?? Phone: Indications: Hx of Rt Fem-AK pop bypass ? patency Findings: Right ?PSV (cm/s) ??EDV ?? Common Femoral Artery, Proximal ? 266 ?? 14 ?? Common Femoral Artery, Mid ?195 ?7 ?? Popliteal Artery, Above Knee ? 67 ?0 ?? Right Fem-Pop AK SEGMENT ? PSV (cm/s) ??EDV ??Location ? Right Inflow Artery (Graft) ?195 ?7 ??Common Femoral, Right ? Inflow Anastomosis, Right ? 95 ?0 ??Common Femoral, Right ? Right Proximal Graft ?46 ?0 ? Right High Thigh (Graft) ?74 ?0 ? Right Mid Graft ? 49 ?0 ? Right Mid Thigh (Graft) ? 49 ?0 ? Right Distal Graft ?61 ?0 ? Outflow Anastomosis, Right ?93 ?0 ??Popliteal, Above Knee Right ?? Right Outflow Artery (Graft) ?67 ?0 ??Popliteal, Above Knee Right ?? Interpretation: RIGHT: Patent common femoral artery to above knee popliteal artery bypass graft with no identifiable region of stenosis within the graft. There are elevated velocities noted in the proximal common femoral artery inflow (PSV 266 cm/s; previously 258 cm/s). Electronically Signed by: AMY MORALES on 2023-05-05 10:27:32 AM VASCUBASE VB Text Report End of Report VASCUBASE 05/04/2023 12:3 5 PM EST Epifanio Kent APRN VASCULAR ORDERABLES VASCUBASE * SHEFALI, legs, multiple levels (05/04/2023 12:35 PM EST) VB Text Report Department: Vascular Surgery Lab Patient: [id number] (JENNIFER SNYDER) CPT: 49619 Referring Physician: EPIFANIO KENT ?? Phone: Indications: PAD BLE ? perfusion Diabetes mellitus: Yes Findings: Right ?Pressure (mm Hg) ?? SHEFALI ??Waveform ? TBI ?? Brachial Artery ?145 ? Dorsalis Pedis (Ankle) Artery ?145 ? 0.98 ??Triphasic ? Posterior Tibial (Ankle) Artery ??159 ? 1.07 ??Bi-Triphasic ? Great Toe ?95 ?0.64 ?? Left ? Pressure (mm Hg) ?? SHEFALI ??Waveform ?TBI ?? Brachial Artery ?148 ? Dorsalis Pedis (Ankle) Artery ?63 ?0.43 ??Monophasic ? Posterior Tibial (Ankle) Artery ??76 ?0.51 ??Kittson-Biphasic ? Great Toe ?44 ? 0.30 ?? Interpretation: RIGHT: No significant lower extremity arterial occlusive disease. Toe-brachial index substantially lower than ankle-brachial index indicates presence of mild arterial occlusive disease in the foot. When compared to the previous exam on 04/21/2022 there is no significant change in SHEFALI however there is a significant decrease in TBI. LEFT: Moderate lower extremity arterial occlusive disease. Toe-brachial index substantially lower than ankle-brachial index indicates presence of moderately severe arterial occlusive disease in the foot. When compared to the previous exam on 04/21/2022 there is no significant change in SHEFALI however there is a significant decrease in TBI. Previous ABIs with change from previous value: Date ?RIGHT DP ?? RIGHT PT ?? RT GR TOE ??RT Sec TOE ??0.89 ? 0.95 ? ---- ? ---- ??0.88(-.01) 0.94(-.01) 0.63 ? ---- ??0.89(+.01) 0.90(-.04) 0.56(-.07) ---- ??1.03(+.14) 0.99(+.09) 0.58(+.02) ---- ??0.98(-.05) 1.04(+.05) 0.62(+.04) ---- ??0.98( .00) 1.03(-.01) 0.62( .00) ---- ??0.94(-.04) 1.01(-.02) 0.66(+.04) ---- ??1.01(+.07) 1.01( .00) 0.67(+.01) ---- ??1.08(+.07) 1.14(+.13) 0.82(+.15) ---- Current ? 0.98(-.10) 1.07(-.07) 0.64(-.18) ---- Date ?LEFT DP ?LEFT PT ?LT GR TOE LT Sec TOE ??0.62 ? 0.62 ? ---- ? ---- ??0.59(-.03) 0.59(-.03) 0.40 ? ---- ??0.55(-.04) 0.62(+.03) 0.37(-.03) ---- ??0.53(-.02) 0.54(-.08) 0.36(-.01) ---- ??0.56(+.03) 0.60(+.06) 0.36( .00) ---- ??0.54(-.02) 0.59(-.01) 0.30(-.06) ---- ??0.54( .00) 0.58(-.01) 0.34(+.04) ---- ??0.48(-.06) 0.51(-.07) 0.32(-.02) ---- ??0.58(+.10) 0.56(+.05) 0.48(+.16) ---- Current ? 0.43(-.15) 0.51(-.05) 0.30(-.18) ---- More studies have been completed than are shown. Electronically Signed by: AMY MORALES on 2023-05-05 10:19:36 AM VASCUBASE VB Text Report End of Report VASCUBASE 05/04/2023 12:3 5 PM EST Epifanio Kent APRN VASCULAR ORDERABLES VASCUBASE * Carotid Duplex, Bilateral (05/04/2023 12:35 PM EST) VB Text Report Department: Vascular Surgery Lab Patient: [id number] (JOSE CARLOS JENNIFER) CPT: 38749 Referring Physician: EPIFANIO KENT ?? Phone: Indications: Findings: ICA Proximal, Right ? PSV (cm/s): 94 ? EDV (cm/s): 26 ? ICA/CCA: 1.5 ? Plaque Structure: Echogenic ? Plaque Surface: Irregular ? %Stenosis: <15% ICA Distal, Right ? PSV (cm/s): 68 ? EDV (cm/s): 19 ? ICA/CCA: 1.1 CCA Distal, Right ? PSV (cm/s): 62 ? EDV (cm/s): 10 ? %Stenosis: <50% CCA Proximal, Right ? PSV (cm/s): 110 ? EDV (cm/s): 5 External Carotid Artery, Right ? PSV (cm/s): 95 ? EDV (cm/s): 4 ? %Stenosis: <50% Vertebral, Right ? PSV (cm/s): 82 ? EDV (cm/s): 14 ? Direction of Flow: Antegrade ICA Proximal, Left ? PSV (cm/s): 361 ? EDV (cm/s): 83 ? ICA/CCA: 4.6 ? Plaque Structure: Echogenic ? Plaque Surface: Irregular ? %Stenosis: 50-79% ICA Middle, Left ? PSV (cm/s): 197 ? EDV (cm/s): 66 ? ICA/CCA: 2.5 ICA Distal, Left ? PSV (cm/s): 197 ? EDV (cm/s): 66 ? ICA/CCA: 2.5 CCA Distal, Left ? PSV (cm/s): 79 ? EDV (cm/s): 17 ? %Stenosis: <50% CCA Proximal, Left ? PSV (cm/s): 84 ? EDV (cm/s): 13 External Carotid Artery, Left ? PSV (cm/s): 244 ? EDV (cm/s): 5 ? %Stenosis: >50% Vertebral, Left ? PSV (cm/s): 56 ? EDV (cm/s): 15 ? Direction of Flow: Antegrade Interpretation: RIGHT: There is irregular plaque in the common carotid artery causing <50% stenosis by B-mode. There is irregular plaque in the proximal internal carotid artery causing <15% stenosis when compared to the more distal internal carotid artery. No significant change compared to previous exam. The bifurcation level is in the mid neck. Calcification of the carotid bifurcation prohibits thorough interrogation by Doppler: unable to exclude more significant stenosis. LEFT: There is irregular plaque in the common carotid artery causing <50% stenosis by B-mode. There is bulky irregular plaque in the proximal internal carotid artery causing 50-79% stenosis when compared to the more distal internal carotid artery. No significant change compared to previous exam. The bifurcation level is in the mid neck. Vertebral Artery Data: Patent vertebral arteries with normal antegrade Doppler waveforms and velocities bilaterally. Previous Carotid Studies: Date ?RIGHT ICA Stenosis ??PSV ?? Ratio ?? LEFT ICA Stenosis ?? PSV ?? Ratio ? <15% ? 76 ?0.90 ? 50-59% ? 225 ?? 2.50 ? <15% ? 83 ?0.90 ? 50-59% ? 241 ?? 2.60 ? <15% ? 83 ?0.80 ? 50-69% ? 315 ?? 4.10 ? <15% ? 84 ?1.00 ? 50-69% ? 315 ?? 3.40 ? <15% ? 92 ?1.70 ? 50-69% ? 326 ?? 3.70 ? <15% ? 108 ?? 1.30 ? 50-79% ? 384 ?? 3.70 ? <15% ? 80 ?1.20 ? 50-79% ? 348 ?? 3.90 Current Exam ? <15% ? 94 ?1.50 ? 50-79% ? 361 ?? 4.60 Electronically Signed by: AMY MORALES on 2023-05-05 10:29:54 AM VASCUBASE VB Text Report End of Report VASCUBASE 05/04/2023 12:3 5 PM EST Epifanio Kent APRN VASCULAR ORDERABLES VASCUBASE documented in this encounter Visit Diagnoses Diagnosis S/P bypass graft of extremity Other postprocedural status PVD (peripheral vascular disease) Peripheral vascular disease, unspecified Bilateral carotid artery stenosis Occlusion and stenosis of multiple and bilateral precerebral arteries without mention of cerebral infarction documented in this encounter Care Teams Pipeline Superintendent Division Relationship Specialty Start Date End Date Shirley Yu MD [address] [place] [address] PCP - General 11/19/14 documented as of this encounter
--- OUTSIDE RECORDS SUMMARY | 2023-12-13 18:22 | XMS_ITS | Encounter Summary ---
Author Organization [facility] [place] [address] Care Team Providers Care Records Specialist Name Role Phone Shirley Yu MD Primary Care Provider [phone] Encounter Details Date Type Department Care Team (Latest Contact Info) Description 05/04/2023 Travel Social History Tobacco Use Types Packs/Day [...] PM EDT Tech [place] [address] Marguerite Macias 12/19/2023 3:00 PM EDT Office Visit [place] [phone] Gardenia Golden, [facility] [place] [address] 01/29/2024 1:[address] [place] [address] [facility] [place] [address] 01/29/2024 2:30 PM EDT Office Visit [place] [address] [facility] [place] [address] documented as of this encounter Visit Diagnoses Not on filedocumented in this encounter Care Teams Records Specialist Relationship Specialty Start Date End Date Shirley Yu MD [address] [place] [address] PCP - General 11/19/14 documented as of this encounter
--- OUTSIDE RECORDS SUMMARY | 2023-12-13 18:22 | XMS_ITS | Encounter Summary ---
Author Organization [facility] [place] [address] Care Team Providers Care Perl Developer Name Role Phone Shirley Yu MD Primary Care Provider [phone] Encounter Details Date Type Department Care Team (Latest Contact Info) Description 01/16/2023 Travel Social History Tobacco Use Types Packs/Day [...] PM EDT Tech Visit [place] [phone] Marguerite Macias 12/19/2023 3:00 PM EDT Office Visit [place] [phone] Gardenia Golden, [facility] [place] [address] 01/29/2024 1:[address] [place] [address] César Escobar MD [facility] [place] [address] 01/29/2024 2:30 PM EDT Office Visit [place] [address] César Escobar MD [facility] [place] [address] documented as of this encounter Visit Diagnoses Not on filedocumented in this encounter Care Teams Perl Developer Relationship Specialty Start Date End Date Shirley Yu MD [address] [place] [address] PCP - General 11/19/14 documented as of this encounter
--- OUTSIDE RECORDS SUMMARY | 2023-12-13 18:22 | XMS_ITS | Encounter Summary ---
[place] [address] Care Team Providers Care Router Tender Name Role Phone Shirley Yu MD Primary Care Provider [phone] Reason for Referral * Consultation (Routine) - Closed Specialty Diagnoses / Procedures Referred By Dominik mcleod Referred To Contact Gastroenterology Diagnoses Lopez's esophagus with severe dysplasia barretts esophagus severe dysplasia Shirley Yu MD [address] [place] [address] [facility] [address] [place] [phone] Referral ID Status Reason Start Date Expiration Date V isits Requested Visits Authorized [id number] Closed Consult, Test & Treat PCP Updated and/or Approved 07/12/2022 07/12/2023 6 6 Encounter Details Date Type Department Care Team (Latest Contact Info) Description 07/12/2022 Transcribe Orders eDH Incoming Referrals [phone] Shirley Yu MD [address] [place], [place] [id number] Lopez's esophagus with severe dysplasia Social History Tobacco Use Types Packs/Day Years [...] PM EDT Tech [place] [address] Marguerite Macias 12/19/2023 3:00 PM EDT Office Visit Vascular Surgery at [place] [phone] Gardenia Golden APRN [facility] [place] [place] [address] 01/29/2024 1:[address] Scan at [place] [phone] César Escobar MD [facility] [place] [address] 01/29/2024 2:30 PM EDT Office Visit Thoracic Surgery at [place] [phone] César Escobar MD [facility] [place] [address] Scheduled Referrals Name Type Priority Associated Diagnoses Order Schedule Referral to Gastroenterology Outpatient Referral Routine Lopez's esophagus with severe dysplasia Ordered: 07/12/2022 documented as of this encounter Visit Diagnoses Diagnosis Lopez's esophagus with severe dysplasia Lopez's esophagus documented in this encounter Care Teams Router Tender Relationship Specialty Start Date End Date Shirley Yu MD [address] [place] [address] PCP - General 11/19/14 documented as of this encounter
--- OUTSIDE RECORDS SUMMARY | 2023-12-13 18:22 | XMS_ITS | Encounter Summary ---
[place] [address] Care Team Providers Care Equipment Operator Intermodal Yard Name Role Phone Shirley Yu MD Primary Care Provider [phone] Reason for Referral * Diagnostic Test (Routine) - Closed Specialty Diagnoses / Procedures Referred By Contac t Referred To Contact Diagnoses Leg swelling S/P bypass graft of extremity Procedures Unilat Bypass Graft Assess Epifanio Kent APRN [facility] [place] [address] [facility] [address] [place] [phone] Referral ID Status Reason Start Date Expiration Date V isits Requested Visits Authorized [id number] Closed Specialty Service Requested 03/21/2022 03/21/2023 1 1 * Diagnostic Test (Routine) - Closed Specialty Diagnoses / Procedures Referred By Contac t Referred To Contact Diagnoses Leg swelling S/P bypass graft of extremity Procedures SHEFALI, legs, multiple levels Epifanio Kent APRN [facility] [place] [address] [facility] [address] [place] [phone] Referral ID Status Reason Start Date Expiration Date V isits Requested Visits Authorized [id number] Closed Specialty Service Requested 03/21/2022 03/21/2023 1 1 Encounter Details Date Type Department Care Team (Late st Contact Info) Description 03/21/2022 Orders [place] [phone] Tavia Adam RN Leg swelling; S/P bypass graft of extremity Social History Tobacco Use Types Packs/Day Years [...] PM EDT Tech Visit [place] [address] Marguerite Macias 12/19/2023 3:00 PM EDT Office [place] [address] Gardenia Golden APRN [facility] [place] [address] 01/29/2024 1:[address] [place] [place] [address] César Escobar MD [facility] [place] [address] 01/29/2024 2:30 PM EDT Office [place] [address] César Escobar MD [facility] [place] [address] documented as of this encounter Results * Unilat Bypass Graft Assess (04/21/2022 1:01 PM EST) VB Text Report Department: Vascular Surgery Lab Patient: [id number] (JENNIFER SNYDER) CPT: 07004 Referring Physician: EPIFANIO KENT ?? Phone: Indications: F/U R HOSPITAL INSURANCE REPRESENTATIVE-AK POP bypass graft, ? patency/stenosis Findings: Right Fem-Pop AK SEGMENT ? PSV (cm/s) ??EDV ??Location ? Right Inflow Artery (Graft) ?204 ?0 ??Common Femoral, Right ? Inflow Anastomosis, Right ? 78 ?0 ??Common Femoral, Right ? Right Proximal Graft ?66 ?0 ? Right Mid Graft ? 60 ?5 ? Right Low Thigh (Graft) ? 52 ?0 ? Right Distal Graft ?49 ?0 ? Outflow Anastomosis, Right ?66 ?4 ??Popliteal, Above Knee Right ?? Right Outflow Artery (Graft) ? 104 ?4 ??Popliteal, Above Knee Right ?? Interpretation: RIGHT: Patent common femoral artery to above knee popliteal artery bypass graft with no identifiable region of stenosis within the graft. There are slightly elevated velocities noted in the proximal common femoral artery inflow (PSV 204 cm/s; previously 258 cm/s). Electronically Signed by: OZZY LANE on 2022-04-23 08:54:09 AM VASCUBASE VB Text Report End of Report VASCUBASE 04/21/2022 1:01 PM EST Epifanio Kent APRN VASCULAR ORDERABLES VASCUBASE * SHEFALI, legs, multiple levels (04/21/2022 1:01 PM EST) VB Text Report Department: Vascular Surgery Lab Patient: [id number] (JENNIFER SNYDER) CPT: 59428 Referring Physician: EPIFANIO KENT ?? Phone: Indications: ?? F/U R HOSPITAL INSURANCE REPRESENTATIVE to AK POP bypass graft, ? change in ABs Diabetes mellitus: Yes Findings: Right ?Pressure (mm Hg) ?? SHEFALI ??Waveform ? TBI ?? Dorsalis Pedis (Ankle) Artery ?182 ? 1.08 ??Biphasic-Rev ? Posterior Tibial (Ankle) Artery ??191 ? 1.14 ??Triphasic ? Great Toe ?138 ? 0.82 ?? Left ? Pressure (mm Hg) ?? SHEFALI ??Waveform ?TBI ?? Brachial Artery ?168 ? Dorsalis Pedis (Ankle) Artery ?98 ?0.58 ??[place]-Biphasic ? Posterior Tibial (Ankle) Artery ??94 ?0.56 ??[place]-Biphasic ? Great Toe ?80 ? 0.48 ?? Interpretation: RIGHT: Normal ankle-brachial indices and toe-brachial index at rest. No significant change in the ABIs and improvement in the TBI when compared to previous exam. LEFT: Moderate lower extremity arterial occlusive disease. No significant change in the ABIs and improvement in the TBI when compared to previous exam. NOTE: Hypertension is present based on Doppler derived systolic brachial blood pressure. Right brachial pressure not obtained due to diabetic sensor on right upper arm. Previous ABIs with change from previous value: Date ?RIGHT DP ?? RIGHT PT ?? RT GR TOE ??RT Sec TOE ??0.49 ? 0.56 ? 0.35 ? ---- ??0.89(+.40) 0.95(+.39) ---- ? ---- ??0.88(-.01) 0.94(-.01) 0.63 ? ---- ??0.89(+.01) 0.90(-.04) 0.56(-.07) ---- ??1.03(+.14) 0.99(+.09) 0.58(+.02) ---- ??0.98(-.05) 1.04(+.05) 0.62(+.04) ---- ??0.98( .00) 1.03(-.01) 0.62( .00) ---- ??0.94(-.04) 1.01(-.02) 0.66(+.04) ---- ??1.01(+.07) 1.01( .00) 0.67(+.01) ---- Current ? 1.08(+.07) 1.14(+.13) 0.82(+.15) ---- Date ?LEFT DP ?LEFT PT ?LT GR TOE LT Sec TOE ??0.46 ? 0.46 ? 0.31 ? ---- ??0.62(+.16) 0.62(+.16) ---- ? ---- ??0.59(-.03) 0.59(-.03) 0.40 ? ---- ??0.55(-.04) 0.62(+.03) 0.37(-.03) ---- ??0.53(-.02) 0.54(-.08) 0.36(-.01) ---- ??0.56(+.03) 0.60(+.06) 0.36( .00) ---- ??0.54(-.02) 0.59(-.01) 0.30(-.06) ---- ??0.54( .00) 0.58(-.01) 0.34(+.04) ---- ??0.48(-.06) 0.51(-.07) 0.32(-.02) ---- Current ? 0.58(+.10) 0.56(+.05) 0.48(+.16) ---- More studies have been completed than are shown. Electronically Signed by: OZZY LANE on 2022-04-23 09:25:51 AM VASCUBASE VB Text Report End of Report VASCUBASE 04/21/2022 1:01 PM EST Epifanio Kent APRN VASCULAR ORDERABLES VASCUBASE documented in this encounter Visit Diagnoses Diagnosis Leg swelling Swelling of limb S/P bypass graft of extremity Other postprocedural status documented in this encounter Care Teams Equipment Operator Intermodal Yard Relationship Specialty Start Date End Date Shirley Yu MD [address] [place] [address] PCP - General 11/19/14 documented as of this encounter
--- OUTSIDE RECORDS SUMMARY | 2023-12-13 18:22 | XMS_ITS | Encounter Summary ---
[place] [address] Care Team Providers Care Health Benefits Specialist Name Role Phone Shirley Yu MD Primary Care Provider [phone] Encounter Details Date Type Department Care Team (Late st Contact Info) Description 04/20/2023 External [place] [phone] Provider, Scanning Social History Tobacco Use Types Packs/Day Years [...] PM EDT Tech Visit [place] [phone] Marguerite Macias 12/19/2023 3:00 PM EDT Office [place] [phone] Gardenia Golden, CREATIVE SPECIALIST [facility] [place] [address] 01/29/2024 1:[address] [place] [place] [phone] César Escobar MD [facility] [place] [address] 01/29/2024 2:30 PM EDT Office [place] [phone] César Escobar MD [facility] [place] [address] documented as of this encounter Procedures Procedure Name Priority Date/Time Associated Diagnosis Comments SCAN DOC - EKG PRELIM Routine 04/20/2023 10:04 AM EST documented in this encounter Results * Scan Doc: EKG Preliminary (04/20/2023 10:04 AM EST) Scanning Provider MEDIA MGR SCAN EXT O RDR/RSLT documented in this encounter Visit Diagnoses Not on filedocumented in this encounter Care Teams Health Benefits Specialist Relationship Specialty Start Date End Date Shirley Yu MD [address] [place] [address] PCP - General 11/19/14 documented as of this encounter
--- OUTSIDE RECORDS SUMMARY | 2023-12-13 18:22 | XMS_ITS ---
[place] [address] Care Team Providers Care Construction Engineer Name Role Phone Shirley Yu MD Primary Care Provider [phone] Active Problems Problem Noted Date Diagnosed Date [...] Overview (02/05/2019): A1C is a little high Current Oncology Plans No current plan information found. Past Plans No past plan information found. Radiation Treatments * No radiation treatments are documented for this patient in [facility]. Treatments may have been administered in another system. Lifetime Dose Tracking * Chemical Lifetime Dose Automatic Entry Manual Entr y DLP (Dose Length Product) 446 mGy-cm 446 mGy-cm 0 mGy-cm CTDI (CT Dose Index) Min 12.21 mGy 12.21 mGy 0 m Gy CTDI (CT Dose Index) Max 12.21 mGy 12.21 mGy 0 m Gy Resolved Problems Problem Noted Date Diagnosed Date [...]
--- OUTSIDE RECORDS SUMMARY | 2023-12-13 18:22 | XMS_ITS | Encounter Summary ---
[place] [address] Care Team Providers Care Auto Body Straightener Name Role Phone Shirley Yu MD Primary Care Provider [phone] Reason for Referral * Diagnostic Test (Routine) - New Request Specialty Diagnoses / Procedures Referred By Dominik mcleod Referred To Contact Radiology Diagnoses Multiple lung nodules Procedures CT Chest wo Contrast (Generic) César Escobar MD [facility] [place] [address] [facility] [place] [address] Referral ID Status Reason Start Date Expiration Date Visits Requested Visits Authorized [id number] New Request Specialty Service Requested 3 07/26/2024 1 1 Reason for Visit * Reason Comments Follow-up Encounter Details Date Type Department Care Team (Late st Contact Info) Description 01/16/2023 2:45 PM EDT Office [place] [address] César Escobar MD [facility] [place] [address] Multiple lung nodules Social History Tobacco Use Types Packs/Day Years [...] Sign Reading Time Taken Comments Blood Pressure 190/64 01/16/2023 2:37 PM EDT Pulse 60 01/16/2023 2:37 PM EDT Temperature 36.3 ??C (97.3 ??F) 01/16/2023 2:37 PM ED T Respiratory Rate 18 01/16/2023 2:37 PM EDT Oxygen Saturation 97% 01/16/2023 2:37 PM EDT Inhaled Oxygen Concentration - - Weight 72.2 kg (159 lb 2.8 oz) 01/16/2023 2:37 P M EDT Height 166.2 cm (5' 5.43) 01/16/2023 2:37 PM ED T Body Mass Index 26.14 01/16/2023 2:37 PM EDT documented in this encounter Patient Instructions * Patient Instructions* Betty Alicea RN - 01/16/2023 2:45 PM EDT Thank you for visiting Dr. Escobar in clinic 01/25/23 Dr. Escobar would like to see you back in clinic in 1 year with a recent CT scan of your chest without IV contrast. You will receive a letter in the mail/ receive a call to schedule this appointment. Exercise each day for 30 minutes or longer. Daily aerobic exercise for at least 30 minutes will help improve your endurance and improve the breathing capacity of your lungs. This means that you are breathing hard, your heart is beating fast and that you are sweating. Examples of this include walking, biking, swimming, and using a treadmill or stationary bike. Please call Thoracic surgery at with any questions or concerns. documented in this encounter Progress Notes * César Escobar MD - 01/16/2023 2:45 PM EDT Thoracic surgery follow-up visit Chief complaint: Surveillance of lung nodules History of present illness: Ms. Snyder is a 62-year-old woman who underwent thoracoscopic biopsy of right-sided lung nodules on June 21, 2018. She continues to qualify for lung cancer screening chest CTs and because of the multiplicity of her nodules and the complexity of her medical history continues to follow-up with me for surveillance. I last saw her on December 20, 2021, and she comes in today for 1 year follow-up. She reports having had a cardiac stent placed in the last year, but otherwise no changes to her health. Current Outpatient Medications on File Prior to Visit Medication Sig Dispense Refill Jardiance 10 mg tablet Take 10 mg by mouth daily. Entresto 24-26 mg tablet Take 1 tablet by mouth 2 times daily. Levothyroxine (Tirosint) 150 mcg Capsule 0 Refill(s) carvediloL (Coreg) 6.25 mg Tablet rosuvastatin (Crestor) 5 mg Tablet Take 5 mg by mouth daily. ferrous gluconate 324 mg (38 mg iron) Tablet TAKE ONE TABLET BY MOUTH EVERY DAY citalopram (CeleXA) 20 mg Tablet Take by mouth. dabigatran (PRADAXA) 150 mg Capsule Take 1 capsule by mouth 2 times daily. 180 capsule 0 pantoprazole (PROTONIX) 40 mg Tablet, Delayed Release (E.C.) TAKE ONE TABLET BY MOUTH TWICE A DAY 98 Diabetic Supplies, Miscellan. Misc Form faxed to [email or web address] for pump supplies. 100 each 12 aspirin 81 mg EC tablet Take 81 mg by mouth daily. clopidogreL (Plavix) 75 mg Tablet Take 1 tablet by mouth daily. (Patient not taking: Reported on 01/16/2023) 90 tablet 3 chlorthalidone (Hygroten) 25 mg Tablet Magnesium Oxide 250 mg magnesium Tablet Take by mouth. glucagon HCl (GLUCAGON, HUMAN RECOMBINANT,) 1 mg Recon Soln Inject 1 mg into the muscle as needed (as needed for hypoglycemia). (Patient not taking: Reported on 01/16/2023) 1 mL 3 acetaminophen (TYLENOL) 500 mg Tablet Take 1 tablet by mouth every 4 hours as needed for Pain. (Patient not taking: Reported on 01/16/2023) 30 tablet 1 insulin aspart U-100 (NovoLOG) 100 unit/mL Solution Inject subcutaneously 3 times daily (with meals). ONETOUCH ULTRA TEST Strip 1 strip by Other route 4 times daily. 4 losartan (COZAAR) 100 mg Tablet Take 50 mg by mouth daily. insulin lispro (HUMALOG) 100 unit/mL injection Inject 55-60 Units subcutaneously continuous. Via insulin pump No current facility-administered medications on file prior to visit. BP 190/64 (Patient Position: Sitting) Pulse 60 Temp 36.3 ??C (97.3 ??F) (Temporal) Resp 18 Ht 166.2 cm (5' 5.43) Wt 72.2 kg (159 lb 2.8 oz) SpO2 97% BMI 26.14 kg/m?? Physical exam: She appears comfortable. She is alert, oriented and in no distress. She has no neurologic deficits and no palpable adenopathy. Her lungs are clear. Imaging: I reviewed the patient's noncontrast chest CT dated January 16, 2023. This demonstrates no change in any of her multiple lung nodules Assessment: 62-year-old woman with multiple lung nodules and a previous biopsy 4 years ago suggesting granulomatous disease. She continues to qualify for lung cancer screening chest CTs due to her smoking history, and because of the complexity of her imaging findings we will continue to follow-up with me. Plan: Return to clinic in 1 year for noncontrast chest CT CÉSAR ESCOBAR MD documented in this encounter Miscellaneous Notes * Addendum Note - Betty Alicea RN - 01/16/2023 2:45 PM EDTAddended by: BETTY ALICEA on: 01/25/2023 05:52 PM Modules accepted: Orders documented in this encounter Plan of Treatment Upcoming Encounters Date Type Department Care Team (Late st Contact Info) Description 12/19/2023 1:00 PM EDT Tech [place] [address] Marguerite Macias 12/19/2023 3:00 PM EDT Office Visit [place] [address] Gardenia Golden APRN [facility] [place] [address] 01/29/2024 1:[address] [place] [address] César Escobar MD [facility] [place] [address] 01/29/2024 2:30 PM EDT Office [place] [phone] César Escobar MD [facility] [place] [address] Scheduled Orders Name Type Priority Associated Diagnoses Orde r Schedule CT Chest wo Contrast (Generic) Imaging Routine Multiple lung nodules Expected: 01/26/2024, Expires: 07/26/2024 documented as of this encounter Visit Diagnoses Diagnosis Multiple lung nodules Other nonspecific abnormal finding of lung field documented in this encounter Care Teams Auto Body Straightener Relationship Specialty Start Date End Date Shirley Yu MD [address] [place] [address] PCP - General 11/19/14 documented as of this encounter
--- OUTSIDE RECORDS SUMMARY | 2023-12-13 18:22 | XMS_ITS | Encounter Summary ---
Author Organization [facility] [place] [address] Care Team Providers Care Tripe Finisher Name Role Phone Shirley Yu MD Primary Care Provider [phone] Reason for Referral * Diagnostic Test (Routine) - Closed Specialty Diagnoses / Procedures Referred By Dominik mcleod Referred To Contact Diagnoses Leg swelling Procedures LE Unilateral Valvular Incomp Study Ofelia Polanco APRN [facility] [place] [address] [facility] Vascular Lab [address] [place] [phone] Referral ID Status Reason Start Date Expiration Date V isits Requested Visits Authorized [id number] Closed Specialty Service Requested 03/15/2022 03/15/2023 1 1 Encounter Details Date Type Department Care Team (Late st Contact Info) Description 03/15/2022 Orders Only [place] [address] Ofelia Polanco APRN [facility] [place] [address] Leg swelling Social History Tobacco Use Types Packs/Day Years [...] PM EDT Tech Visit Vascular Lab at [place] [phone] Marguerite Macias 12/19/2023 3:00 PM EDT Office [place] [address] Gardenia Golden APRN [facility] [place] [address] 01/29/2024 1:[address] Scan at [place] [phone] César Escobar MD [facility] [place] [address] 01/29/2024 2:30 PM EDT Office Visit [place] [phone] César Escobar MD [facility] [place] [address] documented as of this encounter Visit Diagnoses Diagnosis Leg swelling Swelling of limb documented in this encounter Care Teams Tripe Finisher Relationship Specialty Start Date End Date Shirley Yu MD [address] [place] [address] PCP - General 11/19/14 documented as of this encounter
--- OUTSIDE RECORDS SUMMARY | 2023-12-13 18:22 | XMS_ITS | Encounter Summary ---
[place] [address] Care Team Providers Care Piano Maker Name Role Phone Shirley Yu MD Primary Care Provider [phone] Encounter Details Date Type Department Care Team (Late st Contact Info) Description 05/04/2023 12:30 PM EST Tech Visit [place] [address] Viktor Bustos Bilateral carotid artery stenosis; S/P bypass graft of extremity; PVD (peripheral vascular disease) Social History Tobacco Use Types Packs/Day Years [...] PM EDT Tech [place] [phone] Marguerite Macias 12/19/2023 3:00 PM EDT Office Visit [place] [phone] Gardenia Golden APRN [facility] [place] [address] 01/29/2024 1:[address] [place] [address] César Escobar MD [facility] DR THORACIC SURGERY [place], [place] [address] 01/29/2024 2:30 PM EDT Office Visit [place] [address] César Escobar MD [facility] [place] [address] documented as of this encounter Procedures Procedure Name Priority Date/Time Associated Diagnosis Comments UNILATERAL BYPASS GRAFT ASSESS Routine 05/04/2023 12:35 PM EST S/P bypass graft of extremity PVD (peripheral vascular disease) SHEFALI, LEGS, MULTIPLE LEVELS Routine 05/04/2023 12:35 PM EST S/P bypass graft of extremity PVD (peripheral vascular disease) CAROTID DUPLEX, BILATERAL Routine 05/04/2023 12:35 PM EST Bilateral carotid artery stenosis documented in this encounter Results * Unilat Bypass Graft Assess (05/04/2023 12:35 PM EST) VB Text Report Department: Vascular Surgery Lab Patient: [id number] (JENNIFER SNYDER) CPT: 58985 Referring Physician: EPIFANIO KENT ?? Phone: Indications: Hx of Rt Fem-AK [...] Text Report Department: Vascular Surgery Lab Patient: [id number] (JENNIFER SNYDER) CPT: 96355 Referring Physician: EPIFANIO KENT ?? Phone: Indications: [...] ? Posterior Tibial (Ankle) Artery ??76 ?0.51 ??[place]-Biphasic ? Great Toe ?44 ? 0.30 ?? [...] Text Report Department: Vascular Surgery Lab Patient: [id number] (JENNIFER SNYDER) CPT: 92111 Referring Physician: EPIFANIO KENT ?? Phone: Indications: [...] documented in this encounter Visit Diagnoses Diagnosis Bilateral carotid artery stenosis Occlusion and stenosis of multiple and bilateral precerebral arteries without mention of cerebral infarction S/P bypass graft of extremity Other postprocedural status PVD (peripheral vascular disease) Peripheral vascular disease, unspecified documented in this encounter Care Teams Piano Maker Relationship Specialty Start Date End Date Shirley Yu MD [address] [place] [address] PCP - General 11/19/14 documented as of this encounter
--- OUTSIDE RECORDS SUMMARY | 2023-12-13 18:22 | XMS_ITS | Encounter Summary ---
[place] [address] Care Team Providers Care Food Service Counter Clerk Name Role Phone Shirley Yu MD Primary Care Provider [phone] Encounter Details Date Type Department Care Team (Late Contact Info) Description 03/22/2023 Telephone [place] [address] Maureen Raygoza Social History Tobacco Use Types Packs/Day Years [...] on file documented as of this encounter Miscellaneous Notes * Telephone Encounter - Maureen Raygoza - 03/22/2023 4:44 PM EST [id number] to schedule TESTING ONLY: Renal art dup - hypertension documented in this encounter Plan of Treatment Upcoming Encounters Date Type Department Care Team (Late Contact Info) Description 12/19/2023 1:00 PM EDT Tech [place] [phone] Marguerite Macias 12/19/2023 3:00 PM EDT Office Visit [place] [address] Gardenia Golden APRN [facility] [place] [address] 01/29/2024 1:[address] Scan at [place] [phone] César Escobar MD [facility] [place] [address] 01/29/2024 2:30 PM EDT Office [place] [phone] César Escobar MD [facility] [place] [address] documented as of this encounter Visit Diagnoses Not on filedocumented in this encounter Care Teams Food Service Counter Clerk Relationship Specialty Start Date End Date Shirley Yu MD [address] [place] [address] PCP - General 11/19/14 documented as of this encounter
--- OUTSIDE RECORDS SUMMARY | 2023-12-13 18:22 | XMS_ITS | Encounter Summary ---
Author Organization [facility] [place] [address] Care Team Providers Care Warp Knitter Helper Name Role Phone Shirley Yu MD Primary Care Provider [phone] Encounter Details Date Type Department Care Team (Late st Contact Info) Description 05/12/2022 Orders Only Dispatcher Automobile [place] [address] Chandra Ferrer PA [facility] [place] [address] Screening for cardiovascular condition; Abnormal stress test; Cardiomyopathy, unspecified type Social History Tobacco Use Types Packs/Day Years [...] PM EDT Tech Visit Vascular [place] [phone] Marguerite Macias 12/19/2023 3:00 PM EDT Office Visit [place] [address] Gardenia Golden APRN [facility] [place] [address] 01/29/2024 1:[address] [place] [address] César Escobar MD [facility] [place] [address] 01/29/2024 2:30 PM EDT Office [place] [address] César Escobar MD [facility] [place] [address] documented as of this encounter Visit Diagnoses Diagnosis Screening for cardiovascular condition Screening for other and unspecified cardiovascular conditions Abnormal stress test Other nonspecific abnormal cardiovascular system function study Cardiomyopathy, unspecified type documented in this encounter Care Teams Warp Knitter Helper Relationship Specialty Start Date End Date Shirley Yu MD [address] [place] [address] PCP - General 11/19/14 documented as of this encounter
--- OUTSIDE RECORDS SUMMARY | 2023-12-13 18:22 | XMS_ITS | Encounter Summary ---
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 If yes, take note of Anesthesia type used. If previous procedure found, and with MAC/propofol Anesthesia support was used, schedule this procedure with Anesthesia and skip the Anesthesia portion of questions. If not performed within system, not performed at all, or performed with IVCS, ask Anesthesia questions. SCHEDULING QUESTIONS (ask all patient these questions) 1. Have you ever had a/an Upper Endoscopy before? Yes: Date 10/24/2016 If yes, did you have any problems with the procedure (such as waking up during the procedure, pain or difficulties afterwards, etc.)? No What type of sedation was used: General Anesthesia 2. Do you take any blood thinners or have you been diagnosed with a bleeding disorder that increases your risk of bleeding with procedures? Yes: Type: Dabigatran 3. Do you have a Pacemaker or Defibrillator device? If yes, send pool message to Cardiology with patient information and date or procedure. No 4. Are you a diabetic? If yes, call PCP/managing provider to discuss use of prep and any questions or concerns related to. Yes: Controlled by diet or medication? PUMP 5. Do you take any iron supplements or vitamins that contain iron? Yes 6. Do you have a preference regarding the gender of your provider? No ANESTHESIA QUESTIONS (YES to any question, please book with Anesthesia support) 7. Have you ever been diagnosed with Pulmonary Hypertension and/or Congential Heart Disease? No 8. Have you been diagnosed with A-Fib (atrial fibrillation) that is NOT being well controled with medications? No 9. Have you ever had an allergic or adverse reaction to Fentanyl or Versed? No 10. Have you had a problem with sedation or anesthesia? (Waking up during procedure, extreme confusion after, etc.) No 11. Do you have a diagnosis of Obstructive Sleep Apnea that requires the use of a c-pap machine? Yes 12. Do you use an oxygen tank at home? No 13. Do you use a rescue inhaler more than twice per day? (COPD, severe asthma) No 14. Do you experience breathing problems when you lay flat for a period of time? No 15. Do you take prescription narcotic pain medications, including suboxone or methodone? No SCHEDULING CONFIRMATIONS: Please note any and all parts of your conversation with the patient here. 16. We offer all new patients an opportunity to have an appointment with one of our associate care providers to learn more about your upcoming procedure, ask questions and get answers. These appointments are offered via telehealth. Would you be interested in scheduling this appointment? (Only ask if NEW referral patient; skip this question if GI provider ordered the procedure.) No 17. Is there any other information or concerns you would like to us to share with your care team inrelation to your upcoming scheduled procedure? No 18. You must have a responsible democrat who will drive you to your procedure, stay on campus for the entire duration of your procedure, and drive you home from your procedure. Who will likely be your marine engine driver for the procedure? *Please Verify the height and weight, and adjust if height and/or weight have changed* Estimated body mass index is 26.84 kg/m?? as calculated from the following: Height as of 11/23/20: 168.4 cm (5' 6.3). Weight as of 12/20/21: 76.1 kg (167 lb 12.3 oz). *Delete if not needed* Height: 5'7 Weight: 163 BMI: 25.5 Age:61 y.o. documented in this encounter Plan of Treatment Upcoming Encounters Date Type Department Care Team (Late st Contact Info) Description 12/19/2023 1:00 PM EDT Tech Visit Vascular [place] [phone] Marguerite Macias 12/19/2023 3:00 PM EDT Office Visit [place]ascular [place] [phone] Gardenia Golden APRN [facility] [place] [address] 01/29/2024 1:[address] [place] [address] César Escobar MD [facility] THORACIC SURGERY [place], [place] [phone] 01/29/2024 2:30 PM EDT Office Visit [place] [address] César Escobar MD [facility] [place] [address] documented as of this encounter Visit Diagnoses Not on filedocumented in this encounter Care Teams Supervisor Looping Relationship Specialty Start Date End Date Shirley Yu MD [address] [place] [address] PCP - General 11/19/14 documented as of this encounter
--- OUTSIDE RECORDS SUMMARY | 2023-12-13 18:22 | XMS_ITS | Encounter Summary ---
Author Organization [facility] [place] [address] Care Team Providers Care Therapeutic Case Manager Name Role Phone Shirley Yu MD Primary Care Provider [phone] Reason for Referral * Diagnostic Test (Routine) - Closed Specialty Diagnoses / Procedures Referred By Contpietro t Referred To Contact Radiology Diagnoses Multiple lung nodules Pulmonary granuloma Hx of smoking Procedures CT Chest wo Contrast (Generic) César Escobar MD [facility] [place] [address] [facility] [place] [address] Referral ID Status Reason Start Date Expiration Date V isits Requested Visits Authorized [id number] Closed Specialty Service Requested 03/21/2022 09/20/2023 1 1 Reason for Visit * Diagnostic Test (Routine) - Closed Specialty Diagnoses / Procedures Referred By Contpietro t Referred To Contact Radiology Diagnoses Multiple lung nodules Pulmonary granuloma Hx of smoking Procedures CT Chest wo Contrast (Generic) César Escobar MD [facility] [place] [address] [facility] [place] [address] Referral ID Status Reason Start Date Expiration Date V isits Requested Visits Authorized [id number] Closed Specialty Service Requested 03/21/2022 09/20/2023 1 1 Encounter Details Date Type Department Care Team (Latest Contact Info) Description 01/16/2023 1:40 PM EDT - 01/16/2023 11:59 PM EDT Hospital [place] [phone] César Escobar MD [facility] [place] [address] Multiple lung nodules; Pulmonary granuloma; Hx of smoking Discharge Disposition: Home Social History Tobacco Use Types Packs/Day Years [...] on file documented as of this encounter Medications at Time of Discharge Medication Sig Dispensed Refills Start Date End Date Jardiance 10 mg tablet Take 10 mg by mouth daily. sacubitriL-valsarta n (Entresto) 49-51 mg tablet Take 1 tablet by mouth 2 times daily. levothyroxine (Synthroid) 175 mcg tablet Take 175 mcg by mouth daily. 01/21/2022 carvediloL (Coreg) 6.25 mg Tablet 10/06/2021 rosuvastatin (Crestor) 10 mg tablet Take 10 mg by mouth daily. ferrous gluconate 324 mg (38 mg iron) Tablet TAKE ONE TABLET BY MOUTH EVERY DAY 04/11/2020 Magnesium Oxide 500 mg magnesium tablet Take 500 mg by mouth daily. 01/07/2016 citalopram (CeleXA) 20 mg Tablet Take by mouth. 08/13/2012 dabigatran (PRADAXA) 150 mg Capsule Take 1 capsule by mouth 2 times daily. 180 capsule 02/09/2019 insulin aspart U-100 (NovoLOG) 100 unit/mL Solution Inject subcutaneously 3 times daily (with meals). SylantroTOUCH ULTRA TEST Strip 1 strip by Other route 4 times daily. 4 11/23/2016 pantoprazole (PROTONIX) 40 mg Tablet, Delayed Release (E.C.) TAKE ONE TABLET BY MOUTH TWICE A DAY 98 07/26/2016 Diabetic Supplies, [place]. Misc Form faxed to [employer] for pump supplies. 100 each 12 03/23/2015 losartan (COZAAR) 100 mg Tablet Take 50 mg by mouth daily. 08/11/2014 aspirin 81 mg EC tablet Take 81 mg by mouth daily. insulin lispro (HUMALOG) 100 unit/mL injection Inject 55-60 Units subcutaneously continuous. Via insulin pump clopidogreL (Plavix) 75 mg Tablet Take 1 tablet by mouth daily. 90 tablet 3 05/17/2022 12/01/2023 chlorthalidone (Hygroten) 25 mg Tablet 10/22/2020 12/01/2023 glucagon HCl (GLUCAGON, HUMAN RECOMBINANT,) 1 mg Recon Soln Inject 1 mg into the muscle as needed (as needed for hypoglycemia). 1 mL 3 02/18/2019 12/01/2023 acetaminophen (TYLENOL) 500 mg Tablet Take 1 tablet by mouth every 4 hours as needed for Pain. 30 tablet 1 02/08/2019 12/01/2023 documented as of this encounter Plan of Treatment Upcoming Encounters Date Type Department Care Team (Late st Contact Info) Description 12/19/2023 1:00 PM EDT Tech Visit [place] [phone] Marguerite Macias 12/19/2023 3:00 PM EDT Office [place] [address] Gardenia Golden, OUTPATIENT DIETITIAN [facility] VASCULAR SURGERY [place], [place] [phone] 01/29/2024 1:[address] [place] [address] César Escobar MD [facility] [address] 01/29/2024 2:30 PM EDT Office [place] [address] César Escobar MD [facility] [place] [address] documented as of this encounter Procedures Procedure Name Priority Date/Time Associated Diagnosis Comments CT CHEST WO CONTRAST (GENERIC) Routine 01/16/2023 1:52 PM EDT Multiple lung nodules Pulmonary granuloma Hx of smoking documented in this encounter Results * CT Chest wo Contrast (Generic) (01/16/2023 1:52 PM EDT) Anatomical Region Laterality Modality Chest Computed Tomogra phy Impressions 01/17/2023 10:05 AM EDT 1. ??New 4 mm lower lobe nodules compared to 12/2021. Remaining lung nodules are stable since at least 11/2020. Reassessment can be made on surveillance imaging. 2. ??Emphysema Thank you for letting us participate in the care of this patient. ??If you are a health care provider and have any questions regarding this report, please contact the number below. ??For patients who have questions please contact the health day care center director that requested your imaging first. ? Narrative 01/17/2023 10:05 AM EDT EXAMINATION: CT CHEST WO CONTRAST (GENERIC) CLINICAL HISTORY: hx of RLL wedge resection on 06/20/18 for granulomaous inflammation, hx of multiple nodules, smoking history, please eval for changes, evidence of disease/surveillance TECHNIQUE: Helical CT of the chest without intravenous contrast administration. Thin-section reconstructions as well as coronal and sagittal reformatted images were generated. COMPARISON: 12/20/2021, 11/23/2020 FINDINGS: Lungs/airways/pleura: There is centrilobular emphysema. Postsurgical changes of a prior right lower lobe wedge resection. Stable calcified nodules in both lungs. There is a new 4 mm right lower lobe nodule on image 212 series 6 and a new 4 mm left lower lobe nodule on image 179 Several stable noncalcified lung nodules since at least 11/2020 including 8 mm right lower lobe nodule on image 181 series 6, 6 mm fissural nodule in the right lung on image 181, 7 mm subpleural left lower lobe nodule on image 242 and 5 mm right lower lobe nodule image 249. Mediastinum/lymph nodes: No thoracic lymphadenopathy. Patulous esophagus. Cardiovascular: The heart is stable in size. There are coronary artery calcifications and RCA stent. No pericardial effusion. The aorta is normal in caliber. Upper abdomen: Extensive arterial calcification Bones and soft tissues: There is diffuse qualitative osteopenia. Old posterior right rib fractures are unchanged. Similar superior endplate deformity of L2. The soft tissues are unremarkable. Procedure Note Clark Burgos MD - 01/17/2023 EXAMINATION: CT CHEST WO CONTRAST (GENERIC) CLINICAL HISTORY: hx of RLL wedge resection on 06/20/18 for granulomaous inflammation, hxof multiple nodules, smoking history, please eval for changes, evidence of disease/surveillance TECHNIQUE: Helical CT of the chest without intravenous contrastadministration. Thin-section reconstructions as well as coronal and sagittal reformattedimages were generated. COMPARISON: 12/20/2021, 11/23/2020 FINDINGS: Lungs/airways/pleura: There is centrilobular emphysema. Postsurgicalchanges of a prior right lower lobe wedge resection. Stable calcified nodules inboth lungs. There is a new 4 mm right lower lobe nodule on image 212 series 6and a new 4 mm left lower lobe nodule on image 179 Several stable noncalcifiedlung nodules since at least 11/2020 including 8 mm right lower lobe nodule onimage 181 series 6, 6 mm fissural nodule in the right lung on image 181, 7 mm subpleural left lower lobe nodule on image 242 and 5 mm right lower lobenodule image 249. Mediastinum/lymph nodes: No thoracic lymphadenopathy. Patulousesophagus. Cardiovascular: The heart is stable in size. There are coronary artery calcifications and RCA stent. No pericardial effusion. The aorta is normalin caliber. Upper abdomen: Extensive arterial calcification Bones and soft tissues: There is diffuse qualitative osteopenia. Oldposterior right rib fractures are unchanged. Similar superior endplate deformity ofL2. The soft tissues are unremarkable. IMPRESSION 1. New 4 mm lower lobe nodules compared to 12/2021. Remaining lung nodulesare stable since at least 11/2020. Reassessment can be made on surveillanceimaging. 2. Emphysema Thank you for letting us participate in the care of this patient. If youare a health care provider and have any questions regarding this report,please contact the number below. For patients who have questions please contactthe health day care center director that requested your imaging first. Electronically signed by: Clakr Burgos MD, [facility]([phone]), at 01/17/2023 10:05 AM César Escobar MD IMG CT ORDERABLE S documented in this encounter Visit Diagnoses Diagnosis Multiple lung nodules Other nonspecific abnormal finding of lung field Pulmonary granuloma Postinflammatory pulmonary fibrosis Hx of smoking Personal history of tobacco use, presenting hazards to health documented in this encounter Care Teams Therapeutic Case Manager Relationship Specialty Start Date End Date Shirley Yu MD [address] [place] [address] PCP - General 11/19/14 documented as of this encounter
--- OUTSIDE RECORDS SUMMARY | 2023-12-13 18:22 | XMS_ITS | Encounter Summary ---
Author Organization [facility] [place] [address] Care Team Providers Care Membership Administrator Name Role Phone Shirley Yu MD Primary Care Provider [phone] Encounter Details Date Type Department Care Team (Late st Contact Info) Description 12/21/2021 Orders [place] [phone] Christos Donald MD [facility] [place] [address] of the chest (Primary Dx) Social History Tobacco Use Types Packs/Day Years [...] PM EDT Tech [place] [address] Marguerite Macias 12/19/2023 3:00 PM EDT Office [place] [address] Gardenia Golden APRN [facility] [place] [address] 01/29/2024 1:[address] [place] [address] César Escobar MD [facility] [place] [address] 01/29/2024 2:30 PM EDT Office [place] [address] César Escobar MD [facility] [place] [address] documented as of this encounter Visit Diagnoses Diagnosis Abnormal CT of the chest- Primary Nonspecific (abnormal) findings on radiological and other examination of other intrathoracic organs documented in this encounter Care Teams Membership Administrator Relationship Specialty Start Date End Date Shirley Yu MD [address] [place] [address] PCP - General 11/19/14 documented as of this encounter
--- OUTSIDE RECORDS SUMMARY | 2023-12-13 18:22 | XMS_ITS | Encounter Summary ---
Author Organization [facility] Address [facility] [place] [address] Care Team Providers Care Therapeutic Consultant Name Role Phone Shirley Yu MD Primary Care Provider [phone] Encounter Details Date Type Department Care Team (Late st Contact Info) Description 04/19/2023 Telephone Cardiology at [address] [address] Dora Benson PA [facility] [place] [address] Social History Tobacco Use Types Packs/Day Years [...] encounter Miscellaneous Notes * Telephone Encounter - Dora Benson PA - 04/19/2023 4:33 PM EST Images from the original note were not included. 04/19/2023 Jennifer Snyder Initial Contact Date: 04/19/2023 Contact time: 4:34 PM Referring Provider: GENTRY Watt Patient Location: [place] Brief History 62 y.o female with PMH of ASCVD (s/p [place]IS[place]ETH to [place] 05/2022), PAD, HTN, HLD, T1DM, CKD, active smoker,COPD who presented to the OSH ED with shortness of breath ,cough and general malaise. Has been feeling unwell for about a week, developed worsening SOB over the past 2 days. Found to be hypoxic ~75% on room air, now on 4LNC. CXR suggestive of PNA. No chest pain. Vital sign: 97% on 4LNC, 160/52, HR 70s Pertinent Diagnostic Findings: Labs: Trop 1735 proBNP 1183 Cr 1.9 Lytes WNL WBC WNL Past cardiac studies: EKG: Cardiac cath 05/2022 Conclusions: * Two vessel coronary artery disease (LAD and RCA) * Successful stent insertion of the distal RCA lesion OSH Interventions: CTX and doxycycline Assessment & Plan: 62 y.o female with PMH of ASCVD (s/p LISBETH to [facility] 05/2022), PAD, HTN, HLD, T1DM, CKD, active smoker,COPD, a-fib on pradaxa who presented to the OSH ED with shortness of breath and general malaise. Has been feeling unwell for about a week, developed worsening SOB over the past 2 days. Found to be hypoxic ~75% on room air, now on 4LNC with O2 sat >95%. CXR suggestive of PNA. Troponin 1700x1, second pending. No chest pain. EKG without acute ischemic changes although lead II poorly visualized; recommended repeating EKG. Suspect type II NSTEMI iso underlying infection/hypoxia, although she is afebrile without leukocytosis and not tachycardic. Suspicion for PE is low given chronic pradaxa and no tachycardia but OSH will consider ruling out. I advised trending troponin and calling us back if significant up-tend, as well as calling us back if no clinical improvement despite treatment of PNA.They are unable to get an echo prior to Monday. Above recommendations were based on my discussion with GENTRY Watt; I have not personally interviewed or examined this patient. I encouraged them to contact us if there is any change in symptoms, decision- making, or further need for guidance in management. Dora Benson PA-C Access Pager [phone] 04/19/2023 ADDENDUM: Received a call back around 6pm with an update. Troponin 1700 > 2214 >2900. No chest pain. Symptoms as per the PA are very consistent with an infectious/COPD exacerbation etiology (predominantly cough/wheezing/URI symptoms). She does not reportedly appear volume overloaded. Viral panel came back positive for non-Covid coronavirus. EKG unchanged on my review. On Pradaxa; took this AM. They will continue to trend troponin and keep us posted. They will switch to a heparin gtt once Pradaxa has washed out of system. She is already on a high-intensity statin. [facility] Cardiology does not have bed availability at this time; I have recommended that since such things as TTE are not available until Monday at [facility], that consideration be given [facility]. Overall, still seems like a type II process, however she warrants further cardiac workup that [facility] cannot provide in a timely fashion. 04/20/23 ADDENDUM: Call from Dr. New this morning. The patient's troponin is down to 2470 this morning. She continues to require 5 L nasal cannula. She was moved to the ICU given her need for IV heparin off of the Pradaxa. We discussed that her LAD disease was 50% and 70% in a small diagonal on cath last year. No echocardiogram done at [facility] during her stay in May 2022. Prior echo done at [facility] before her stenting showed an EF of 30%, none since. Today he is giving her 80 of IV Lasix and she does have right-sided patchy findings on her chest x-ray. Discussed having Dr. Martin see the patient and weigh in as she is currently being treated for a type II non-STEMI in the setting of aCOPD flare/pneumonia. Elena Butcher APRN 04/20/2023 documented in this encounter Plan of Treatment Upcoming Encounters Date Type Department Care Team (Late st Contact Info) Description 12/19/2023 1:00 PM EDT Tech [place] [address] Marguerite Macias 12/19/2023 3:00 PM EDT Office Visit [place] [address] Gardenia Goledn APRN [facility] [place] [address] 01/29/2024 1:[address] [place] [address] César Escobar MD [facility] DR THORACIC SURGERY [place], [place] [address] 01/29/2024 2:30 PM EDT Office Visit [place] [address] César Escobar MD [facility] [address] THORACIC SURGERY [place], [place] [address] documented as of this encounter Visit Diagnoses Not on filedocumented in this encounter Care Teams Therapeutic Consultant Relationship Specialty Start Date End Date Shirley Yu MD [address] [place] [address] PCP - General 11/19/14 documented as of this encounter
--- OUTSIDE RECORDS SUMMARY | 2023-12-13 18:22 | XMS_ITS | Encounter Summary ---
Author Organization [facility] [place] [address] Care Team Providers Care Solderer Assembler Name Role Phone Shirley Yu MD Primary Care Provider [phone] Reason for Visit * Reason Onset Date Comments Referral 12/01/2023 Encounter Details Date Type Department Care Team (Late st Contact Info) Description 12/01/2023 Telephone Cardiology at [address] [place] [address] Elsi Barrett, transmission worker Social History Tobacco Use Types Packs/Day Years [...] encounter Miscellaneous Notes * Telephone Encounter - Elsi Barrett, RN - 12/01/2023 2:14 PM EDT Jennifer Galvan 1960 is a patient of after school teacher Nikhil Jade MD, who will retired April 09, 2024. She wishes to establish care at this cardiology clinic in [place]. . 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 05/25/2011 Carotid stenosis 05/25/2011 PDR (proliferative diabetic retinopathy) 01/22/2012 Obesity 02/18/2015 Hypertension 02/18/2015 Hyperlipidemia 02/18/2015 Sleep apnea 02/18/2015 Hypothyroidism 02/18/2015 Depression 02/18/2015 Proliferative diabetic retinopathy of left eye 05/22/2015 Lung nodule 06/06/2018 PVD (peripheral vascular disease) 01/07/2019 Type 1 diabetes 04/10/1975 Groin hematoma 02/08/2019 CKD (chronic kidney disease) stage 4, GFR 15-29 ml/min 08/21/2019 CAD (coronary artery disease) 05/17/2022 Lopez's esophagus 10/28/2021 COPD (chronic obstructive pulmonary disease) 10/28/2021 Degenerative disc disease, lumbar 10/28/2021 ETD (eustachian tube dysfunction) 12/01/2023 Femoral-popliteal bypass graft occlusion 12/01/2023 Former smoker 12/01/[address] 12/24/2021 Long-term insulin use 12/24/2021 Macular degeneration 10/28/2021 Personal history of malignant melanoma of skin 10/28/2021 PVD (pulmonary valve disease) 12/01/2023 Resolved Ambulatory Problems Diagnosis Date Noted Anemia 10/28/2021 Concussion 12/01/2023 Contusion of left knee 12/01/2023 Elevated liver enzymes 10/28/2021 Fracture of toe of left foot 12/01/2023 Ganglion of left wrist 12/01/2023 Hematochezia 12/01/2023 Hx MRSA infection 12/01/2023 Infected animal bite of lower leg 12/01/2023 Infected sebaceous cyst of skin 12/01/2023 Malignant melanoma 12/01/2023 Posterior cerebral circulation hemorrhagic infarction 12/01/2023 Past Medical History: Diagnosis Date Allergy Allergy Antiplatelet or antithrombotic long-term use Cardiac disease Cataract Claudication CPAP (continuous positive airway pressure) dependence Diabetes mellitus DM eyes Heart valve disease High blood pressure Hyperthyroidism Motion sickness Obstructive sleep apnea Post-operative nausea and vomiting Skin disease Thyroid disease Transfusion history Current medications furosemide (Lasix) 20 mg tablet cholecalciferol, Vitamin D3, 50 mcg (2,000 unit) Capsule glucagon (Gvoke HypoPen 2-Pack) 0.5 mg/0.1 mL Auto-Injector Jardiance 10 mg tablet sacubitriL-valsartan (Entresto) 49-51 mg tablet levothyroxine (Synthroid) 175 mcg tablet carvediloL (Coreg) 6.25 mg Tablet rosuvastatin (Crestor) 10 mg tablet ferrous gluconate 324 mg (38 mg iron) Tablet Magnesium Oxide 500 mg magnesium tablet citalopram (CeleXA) 20 mg Tablet dabigatran (PRADAXA) 150 mg Capsule insulin aspart U-100 (NovoLOG) 100 unit/mL Solution ONETOUCH ULTRA TEST Strip pantoprazole (PROTONIX) 40 mg Tablet, Delayed Release (E.C.) Diabetic Supplies, Fantáxicocellan. Misc losartan (COZAAR) 100 mg Tablet aspirin 81 mg EC tablet insulin lispro (HUMALOG) 100 unit/mL injection * Telephone Encounter - Elsi Barrett, RN - 12/01/2023 1:10 PM EDT ----- Message from Tatianna Barr sent at 12/01/2023 11:55 AM EDT ----- Office Notes, Labs, Med List, Demo & Incoming Records scanned and indexed. documented in this encounter Plan of Treatment Upcoming Encounters Date Type Department Care Team (Late st Contact Info) Description 12/19/2023 1:00 PM EDT Tech Visit [place] [phone] Marguerite Macias 12/19/2023 3:00 PM EDT Office Visit [place] [phone] Gardenia Golden, LADARIUS [facility] [address] [place] [address] 01/29/2024 1:[address] [place] [address] César Escobar MD [facility] DR THORACIC [place] [address] 01/29/2024 2:30 PM EDT Office Visit [place] [address] César Escobar MD [facility] DR THORACIC [place] [address] documented as of this encounter Visit Diagnoses Not on filedocumented in this encounter Care Teams Solderer Assembler Relationship Specialty Start Date End Date Shirley Yu MD [address] [place] [address] PCP - General 11/19/14 documented as of this encounter
--- OUTSIDE RECORDS SUMMARY | 2023-12-13 18:22 | XMS_ITS | Encounter Summary ---
[place] [address] Care Team Providers Care Certified Master Locksmith Name Role Phone Shirley Yu MD Primary Care Provider [phone] Encounter Details Date Type Department Care Team (Late Contact Info) Description 12/01/2023 Abstract Cardiology at [address] [place] [phone] Elsi Barrett, RN Social History Tobacco Use Types Packs/Day Years [...] PM EDT Tech Visit [place] [address] Marguerite Macias 12/19/2023 3:00 PM EDT Office Visit [place] [address] [facility] [place] [address] 01/29/2024 1:[address] [place] [phone] César Escobar MD [facility] THORACIC SURGERY [place], [place] [id number] 01/29/2024 2:30 PM EDT Office Visit [place] [address] César Escobar MD [facility] DR THORACIC SURGERY [place], [place] [address] documented as of this encounter Visit Diagnoses Not on filedocumented in this encounter Care Teams Certified Master Locksmith Relationship Specialty Start Date End Date Shirley Yu MD [address] [place] [address] PCP - General 11/19/14 documented as of this encounter
--- OUTSIDE RECORDS SUMMARY | 2023-12-13 18:22 | XMS_ITS | Encounter Summary ---
[place] [address] Care Team Providers Care Auto Rebuilder Name Role Phone Shirley Yu MD Primary Care Provider [phone] Encounter Details Date Type Department Care Team (Late Contact Info) Description 03/25/2022 Telephone [place] [address] Sandra Leal Social History Tobacco Use Types Packs/Day Years [...] encounter Miscellaneous Notes * Telephone Encounter - Elvis July Lisa - 03/25/2022 10:18 AM EST Placed outgoing phone call to patient in order to schedule a procedure. Phone Call Outcome: Left voicemail asking for return call. This was the 2nd attempt If the call is returned, it can be handled by: Any Endoscopy Molding Process Technician documented in this encounter Plan of Treatment Upcoming Encounters Date Type Department Care Team (Late Contact Info) Description 12/19/2023 1:00 PM EDT Tech Visit [place] [address] Marguerite Macias 12/19/2023 3:00 PM EDT Office Visit [place] [address] Gardenia Golden, [facility]AR[facility]US [facility] [place] [address] 01/29/2024 1:[address] [place] [address] César Escobar MD [facility] DR THORACIC SURGERY [place], [place] [address] 01/29/2024 2:30 PM EDT Office Visit [place] [address] César Escobar MD [facility] [place] [address] documented as of this encounter Visit Diagnoses Not on filedocumented in this encounter Care Teams Auto Rebuilder Relationship Specialty Start Date End Date Shirley Yu MD [address] [place] [address] PCP - General 11/19/14 documented as of this encounter
--- OUTSIDE RECORDS SUMMARY | 2023-12-13 18:22 | XMS_ITS | Encounter Summary ---
[place] [address] Care Team Providers Care Cash Grain Grower Name Role Phone Shirley Yu MD Primary Care Provider [phone] Reason for Visit * Reason Onset Date Comments Appointment 10/28/2022 CT Encounter Details Date Type Department Care Team (Late Contact Info) Description 10/28/2022 Telephone [place] [phone] Ferdinand Alexander, RN Appointment (CT) Social History Tobacco Use Types Packs/Day Years [...] encounter Miscellaneous Notes * Telephone Encounter - Ferdinand Alexander RN - 10/28/2022 12:41 PM EDT Call to schedule CT. Pt transferred to scheduled imaging. documented in this encounter Plan of Treatment Upcoming Encounters Date Type Department Care Team (Late Contact Info) Description 12/19/2023 1:00 PM EDT Tech Visit [place] [address] Marguerite Macias 12/19/2023 3:00 PM EDT Office Visit [place] [address] Gardenia Golden APRN [facility] [place] [address] 01/29/2024 1:[address] [place] [address] César Escobar MD [facility] [place] [address] 01/29/2024 2:30 PM EDT Office [place] [address] César Escobar MD [facility] [place] [address] documented as of this encounter Visit Diagnoses Not on filedocumented in this encounter Care Teams Cash Grain Grower Relationship Specialty Start Date End Date Shirley Yu MD [address] [place] [address] PCP - General 11/19/14 documented as of this encounter
--- OUTSIDE RECORDS SUMMARY | 2023-12-13 18:22 | XMS_ITS | Encounter Summary ---
[place] [address] Care Team Providers Care Design Teacher Name Role Phone Shirley Yu MD Primary Care Provider [phone] Encounter Details Date Type Department Care Team (Late st Contact Info) Description 03/14/2022 Telephone [place] [address] Brielle Mclean RN Social History Tobacco Use Types Packs/Day [...] encounter Miscellaneous Notes * Telephone Encounter - Brielle Mclean RN - 03/14/2022 11:13 AM EST Return call placed to Pt regarding symptom of swelling in her legs and coming back for follow up with Vascular surgery. Pt was last seen by Dr. Fontaine in 2019 and follow up plan was to RTC in 6 mos with SHEFALI's, unilat LE duplex, and carotid duplex. She did have the duplexes done in August of 2020; however, she did not return to clinic. Request for Pt to call Vascular RN's back to triage and plan on follow up left on VM as well as our[facility] number. documented in this encounter Plan of Treatment Upcoming Encounters Date Type Department Care Team (Late st Contact Info) Description 12/19/2023 1:00 PM EDT Tech [place] [address] Marguerite Macias 12/19/2023 3:00 PM EDT Office [place] [address] Gardenia Golden APRN [facility] [place] [address] 01/29/2024 1:[address] Scan at [place] [phone] César Escobar MD [facility] [place] [address] 01/29/2024 2:30 PM EDT Office [place] [address] César Escobar MD [facility] [place] [address] documented as of this encounter Visit Diagnoses Not on filedocumented in this encounter Care Teams Design Teacher Relationship Specialty Start Date End Date Shirley Yu MD [address] [place] [address] PCP - General 11/19/14 documented as of this encounter
--- OUTSIDE RECORDS SUMMARY | 2023-12-13 18:22 | XMS_ITS | Encounter Summary ---
[place] [address] Care Team Providers Care Flat Ironer Name Role Phone Shirley Yu MD Primary Care Provider [phone] Encounter Details Date Type Department Care Team (Late st Contact Info) Description 03/24/2023 Telephone [place] [phone] Jennifer Khan Social History Tobacco Use Types Packs/Day Years [...] encounter Miscellaneous Notes * Telephone Encounter - Jennifer Khan - 03/24/2023 12:16 PM EST LVM X1 FOR PATIENT TO CALL AND SCHEDULE A FOLLOW UP APPOINTMENT AND SOME TESTING WITH OUR CLINIC. RLE BPG, B CAR DUP, SHEFALI - R REVENUE CYCLE ADMINISTRATOR-AK POP bypass graft,B CAROTID STENOSIS,BLE PAD, 1Y F/U GIO BRODERICK SENT LETTER X1 GM 03/24/2023 documented in this encounter Plan of Treatment Upcoming Encounters Date Type Department Care Team (Late st Contact Info) Description 12/19/2023 1:00 PM EDT Tech [place] [address] Marguerite Macias 12/19/2023 3:00 PM EDT Office Visit [place] [address] Gardenia Golden, CLINICAL PRACTICE CONSULTANT [facility] [place] [address] 01/29/2024 1:[address] [place] [address] César Escobar MD [facility] [place] [address] 01/29/2024 2:30 PM EDT Office Visit [place] [address] César Escobar MD [facility] DR THORACIC SURGERY [place], [place] [phone] documented as of this encounter Visit Diagnoses Not on filedocumented in this encounter Care Teams Flat Ironer Relationship Specialty Start Date End Date Shirley Yu MD [address] [place] [address] PCP - General 11/19/14 documented as of this encounter
--- OUTSIDE RECORDS SUMMARY | 2023-12-13 18:22 | XMS_ITS | Encounter Summary ---
Author Organization [facility] [place] [address] Care Team Providers Care Citrix Engineer Name Role Phone Shirley Yu MD Primary Care Provider [phone] Reason for Visit * Auth/Cert (Routine) Specialty Diagnoses / Procedures Referred By Dominik mcleod Referred To Contact Diagnoses Screening for cardiovascular condition [Z13.6] Abnormal stress test [R94.39] Cardiomyopathy, unspecified type [I42.9] Procedures PRG CATH PLMT LEFT HEART CATH & ARTS W/INJ & ANGIO IMG S&I CARDIAC CATHETERIZATION CORONARY ANGIOGRAPHY; W [facility],POSSIBLE PCI Rene Olguin MD [facility] [place] [address] [place] [address] [facility] Referral ID Status Reason Start Date Expiration Date Visits Re quested Visits Authorized [id number] 1 1 Encounter Details Date Type Department Care Team (Latest Contact Info) Description 05/17/2022 9:21 AM EST - 05/17/2022 7:11 PM EST Hospital Encounter [place] [id number] Rene Olguin MD [facility] [place] [place] [address] Screening for cardiovascular condition; Abnormal stress test; Cardiomyopathy, unspecified type; Coronary artery disease, unspecified vessel or lesion type, unspecified whether angina present, unspecified whether [place] or transplanted heart Discharge Disposition: Home Social History Tobacco Use [...] Sign Reading Time Taken Comments Blood Pressure 158/76 05/17/2022 5:08 PM EST Pulse 81 05/17/2022 4:30 PM EST Temperature 37 ??C (98.6 ??F) 05/17/2022 5:08 PM EST Respiratory Rate 16 05/17/2022 5:08 PM EST Oxygen Saturation 95% 05/17/2022 5:08 PM EST Inhaled Oxygen Concentration - - Weight 73.2 kg (161 lb 4.8 oz) 05/17/2022 10:45 AM EST Height 170.2 cm (5' 7) 05/17/2022 10:45 AM EST Body Mass Index 25.26 05/17/2022 10:45 AM EST documented in this encounter Discharge Summaries * Jacob Adler DO - 05/17/2022 5:20 PM EST Discharge Summary Patient Name: Jennifer Snyder Patient Age: 61 y.o. Language: Armenian Race: White Ethnicity: Not nor Admit date: 05/17/2022 Discharge date and time: 05/17/2022 Attending Physician: Rene Olguin MD Follow-up Recommendations for Providers: - dual antiplatelet regimen as follows: - aspirin 81 mg daily lifelong - clopidogrel 75 mg daily for 3 months months after PCI for stable ischemic heart disease - continue pradaxa without missing doses - recommend follow up with cardiology in 3-4 weeks Inpatient Provider Contact Information: Rene Olguin MD - attending Jacob Adler DO - Fellow Inpatient Provider Contact Information: For questions regarding this document or issues relating to this hospitalization on the Medical Service, please contact your inpatient physician through the [facility] Plate Embosser . Issues afterhours and on weekends will be handled by the Hospitalist staff on-call. Discharge Diagnoses (Hospital Problems) and Secondary Diagnoses (Chronic Problems): Active Hospital Problems Diagnosis ??? CAD (coronary artery disease) Resolved Hospital Problems No resolved problems to display. Active Non-Hospital Problems Diagnosis ??? CKD (chronic kidney disease) stage 4, GFR 15-29 ml/min ??? Groin hematoma ??? PVD (peripheral vascular disease) ??? Lung nodule ??? Proliferative diabetic retinopathy of left eye ??? Obesity ??? Hypertension ??? Hyperlipidemia ??? Sleep apnea ??? Hypothyroidism ??? Depression ??? PDR (proliferative diabetic retinopathy) ??? Intermittent claudication ??? PAD (peripheral artery disease) ??? 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 Carotid stenosis ??? Hyperkeratosis palmaris et plantaris ??? Type 1 diabetes Operations/Major Procedures: Operations: Procedure(s): CARDIAC CATHETERIZATION CORONARY ANGIOGRAPHY; [facility],POSSIBLE PCI 05/17/2022 History of Presentation: Jennifer Snyder is a 61 y.o. female with past medical history noted below who presented for diagnostic coronary angiography. She underwent nuclear stress test on 02/2022 which which showed moderate sized area of apical infarction and an echocardiogram of 35% .Patient was being seen by Dr. Jones was having an on going work up for Barretts esophagus- ultimately found to have an abnormal EKGand had a nuclear stress test noted above. ??She underwent cardiac cath today found to have distal RCA 80% s/p PCI. ?? Relevant Past Medical History Peripheral artery disease s/p 2000??L CEA (Dr Fong) 2004 R CEA (Dr Avendano) 2007??R fem-AK-pop bypass with GSV (Dr Avendano) 2012??L EIA stent (8x60 SE p7), RLE vein graft FIXED INCOME PORTFOLIO MANAGER (Dr Avendano) 04/27/18??R NEWSPAPER INSERTER/proximal graft and distal graft/pop FIXED INCOME PORTFOLIO MANAGER (6mm and 5mm balloons) 02/04/19??Redo R femoral endarterectomy/profundaplasty, revision of proximal vein graft c/b wound breakdown requiring I&D HTN HLD DM??on Insulin pump Hyperthyroidism RLL wedge resection for pulmonary granuloma 06/25 ??GINGER/BSO ' Hospital Course: Patient was admitted to same day after undergoing cardiac catheterization. She is s/p PCI to RCA with good result. Post procedure hospital course was uneventful. She received IVF. There were no post procedure access site problems. Patient given instructions for follow up. Functional and Cognitive Status: Independent in ALDs and IADLs, A&O x 3, at baseline Vital Signs at Discharge: BP: 158/76, Heart Rate: 81, Temp: 37 ??C (98.6 ??F), Resp: 16, BMI (Calculated): 25.26 Height: 170.2 cm (5' 7) (05/17/22 1045) Weight: 73.2 kg (161 lb 4.8 oz) (05/17/22 1045) Functional and Cognitive Status: Patient is at baseline functional and cognitive status Studies: Cath Report Right dominant ?? LM: 40% ostial, mild diffuse LAD: mild diffuse, scattered 30-40% with calcium throughout LCx: mild diffuse, heavy calcium RCA: mid 35%, distal 80%--> stented ?? LVEDP 22 Pending Studies and Lab Data: None Discharge Conditions/Prognosis: Stable for discharge home Discharge to: Home Updated Allergies/ADRs: Allergies Allergen Reactions ??? Sulfa (Sulfonamide Antibiotics) Other (See Comments) Renal failure, bleeding ??? Pcn [Penicillins] Unknown ??? Penicillin ??? Trimethoprim Immunizations Given this Hospitalization: Immunization History Administered Date(s) Administered ??? Influenza PF, Split 01/02/2017 ??? Influenza Vaccine w/Preservative, Split 01/25/2015 ??? Pneumococcal Conjugate (13 Valent) 02/18/2015 ??? Pneumococcal Polyvalent 23 04/10/2005 Discharge Medications: Your Medications New Medications Dose Details clopidogreL 75 mg Tab Commonly known as: Plavix Take 1 tablet by mouth daily. 75 mg Quantity: 90 tablet Refills: 3 Continued medications, unchanged Dose Details acetaminophen 500 mg Tab Commonly known as: Tylenol Take 1 tablet by mouth every 4 hours as needed for Pain. 500 mg Quantity: 30 tablet Refills: 1 aspirin EC 81 mg Tbec Take 81 mg by mouth daily. 81 mg Refills: 0 carvediloL 6.25 mg Tab Commonly known as: Coreg Refills: 0 chlorthalidone 25 mg Tab Commonly known as: Hygroten Refills: 0 citalopram 20 mg Tab Commonly known as: CeleXA Take by mouth. Refills: 0 dabigatran 150 mg Cap Commonly known as: Pradaxa Take 1 capsule by mouth 2 times daily. 150 mg Quantity: 180 capsule Refills: 0 Diabetic Supplies, Miscellan. Misc Form faxed to [employer] for pump supplies. Quantity: 100 each Refills: 12 ferrous gluconate 324 mg (38 mg iron) Tab TAKE ONE TABLET BY MOUTH EVERY DAY Refills: 0 glucagon 1 mg/mL Solr Commonly known as: GlucaGen Inject 1 mg into the muscle as needed (as needed for hypoglycemia). 1 mg Quantity: 1 mL Refills: 3 insulin aspart U-100 100 unit/mL Soln Commonly known as: NovoLOG Inject subcutaneously 3 times daily (with meals). Refills: 0 insulin lispro 100 unit/mL Soln Commonly known as: HumaLOG Inject 55-60 Units subcutaneously continuous. Via insulin pump 55-60 Units Refills: 0 Levothyroxine 150 mcg Cap Commonly known as: Tirosint 0 Refill(s) Refills: 0 losartan 100 mg Tab Commonly known as: COZAAR Take 50 mg by mouth daily. 50 mg Refills: 0 Magnesium Oxide 250 mg magnesium Tab Take by mouth. Refills: 0 OneTouch Ultra Test Strp 1 strip by Other route 4 times daily. Generic drug: blood sugar diagnostic strips 1 strip Refills: 4 pantoprazole EC 40 mg Tbec Commonly known as: Protonix TAKE ONE TABLET BY MOUTH TWICE A DAY Refills: 98 rosuvastatin 5 mg Tab Commonly known as: Crestor Take 5 mg by mouth daily. 5 mg Refills: 0 Smoking Status at Discharge: Social History Tobacco Use Smoking Status Former ??? Packs/day: 0.50 ??? Years: 30.00 ??? Pack years: 15.00 ??? Types: Cigarettes ??? Quit date: 08/14/2014 ??? Years since quittin.7 Smokeless Tobacco Never Tobacco Comments Smoked 1 ppd for 30 years Instructions Given to Patient at Discharge: Patient Instructions You received one stent in your right coronary artery It is very important for you to take aspirin 81mg daily, plavix 75 mg daily and pradaxa for atleast3 months. Do not miss any doses After 3 months you can drop the plavix, continue pradaxa and also aspirin 81mg daily Close outpatient follow up with cardiology Enroll in cardiac rehab Radial Access for Heart Cath Activity Try to avoid bending your wrist for the first 12-24 hours after the procedure to allow the artery to fully heal. Do not participate in active sports for 48 hours. Do not lift anything greater than 5 lbs. Catheter Insertion Area Care Take the dressing off of the catheter insertion site the morning following the procedure. Leave thesite open to air. If the site is oozing you may cover it with a band aid. You may take a shower if you wish. Look for signs of infection over the next several days. It is uncommon to have any visible blood at the site, any obvious bleeding is abnormal. A bruise around the wrist or small lump under the skin is normal: they generally disappear in 3-5 days. Expect some mild tenderness over the area where the catheter was inserted. You will notice this after the local anesthetic (numbing medicine) wears off. This should improve during the 24-48 hours after the procedure. You may use acetaminophen (tylenol) if needed. Contact your doctor if the discomfort worsens. Problems to Watch for If there is bright red blood flowing from the catheter insertion area: *stop what you are doing *hold pressure steadily on the area for 15 minutes *call for help *if the bleeding does not stop in 15 minutes call 911 for an ambulance. If there is swelling with black and blue color at the catheter insertion site, there may be bleeding inside. Contact the doctor if there is any increase in size. Look at the insertion site for the first few days at home. Signs of infection are: *redness *swelling *yellow, white, green or brown foul smelling drainage. *increased soreness If you think there is an infection, take your temperature. Then call your doctor. The limb on the side where you had your catheterization should look and feel normal in color, sensation, and temperature. If your hand or fingers become cool, pale, blue or change color contact your doctor. If you are having numbness or tingling in your fingers or hand contact your doctor. Follow-up: No future appointments. New Medications to be Picked Up Plavix 75mg daily For questions regarding this document or issues relating to this hospitalization on the Medical Service, please contact your inpatient physician through the [facility] Plate Embosser . Issues afterhours and on weekends will be handled by the Hospitalist staff on-call. General Instructions None Discharge References/Attachments None documented in this encounter Discharge Instructions * Patient Instructions* Jacob Adler, - 05/17/2022 1:04 PM EST You received one stent in your right coronary artery It is very important for you to take aspirin 81mg daily, plavix 75 mg daily and pradaxa for atleast3 months. Do not miss any doses. Monitor for signs of bleeding - if bleeding notify cardiology After 3 months you can drop the plavix, continue pradaxa and also aspirin 81mg daily Close outpatient follow up with cardiology Enroll in cardiac rehab Radial Access for Heart Cath Activity Try to avoid bending your wrist for the first 12-24 hours after the procedure to allow the artery to fully heal. Do not participate in active sports for 48 hours. Do not lift anything greater than 5 lbs. Catheter Insertion Area Care Take the dressing off of the catheter insertion site the morning following the procedure. Leave thesite open to air. If the site is oozing you may cover it with a band aid. You may take a shower if you wish. Look for signs of infection over the next several days. It is uncommon to have any visible blood at the site, any obvious bleeding is abnormal. A bruise around the wrist or small lump under the skin is normal: they generally disappear in 3-5 days. Expect some mild tenderness over the area where the catheter was inserted. You will notice this after the local anesthetic (numbing medicine) wears off. This should improve during the 24-48 hours after the procedure. You may use acetaminophen (tylenol) if needed. Contact your doctor if the discomfort worsens. Problems to Watch for If there is bright red blood flowing from the catheter insertion area: *stop what you are doing *hold pressure steadily on the area for 15 minutes *call for help *if the bleeding does not stop in 15 minutes call 911 for an ambulance. If there is swelling with black and blue color at the catheter insertion site, there may be bleeding inside. Contact the doctor if there is any increase in size. Look at the insertion site for the first few days at home. Signs of infection are: *redness *swelling *yellow, white, green or brown foul smelling drainage. *increased soreness If you think there is an infection, take your temperature. Then call your doctor. The limb on the side where you had your catheterization should look and feel normal in color, sensation, and temperature. If your hand or fingers become cool, pale, blue or change color contact your doctor. If you are having numbness or tingling in your fingers or hand contact your doctor. Follow-up: No future appointments. New Medications to be Picked Up Plavix 75mg daily For questions regarding this document or issues relating to this hospitalization on the Medical Service, please contact your inpatient physician through the [facility] Plate Embosser . Issues afterhours and on weekends will be handled by the Hospitalist staff on-call. documented in this encounter Medications at Time of Discharge Medication Sig Dispensed Refills Start Date End Date levothyroxine (Synthroid) 175 mcg tablet Take 175 [...] Inject subcutaneously 3 times daily (with meals). Hyperpia ULTRA TEST Strip 1 strip by Other route 4 times daily. 4 11/23/2016 pantoprazole (PROTONIX) 40 mg Tablet, Delayed Release (E.C.) TAKE ONE TABLET BY MOUTH TWICE A DAY 98 07/26/2016 Diabetic Supplies, Relative.aian. Misc Form faxed to [employer] for pump supplies. 100 each 12 03/23/2015 [...] 02/08/2019 12/01/2023 documented as of this encounter Progress Notes * Cari Regalado RN - 05/17/2022 7:08 PM EST [facility] Short Stay Unit Discharge Note All relevant discharge milestones have been met by the patent. After Visit Summary and discharge teaching reviewed with the patient. IV access has been discontinued. All personal belongings have been returned to the patient/family upon their departure from the unit. Patient has been discharged to home The patient has been discharged without VNA services. * Alon Polanco RN - 05/17/2022 6:47 PM EST Pt was bleeding from cath site. Pressure held. Bleeding stopped. Site redressed with Syvek and tegaderm. consulted (Vitor.) Pt wants to go home.Per conversation with . Pt advised to call Cardiac Team at night if ooze, and if significant, to call 911. documented in this encounter H&P Notes * Jacob Adler, DO - 05/17/2022 10:55 AM EST Images from the original note were not included. Patient Name: Jennifer Snyder Patient Age: 61 y.o. Birthdate: 1960 Admit date: 05/17/2022 Attending Physician: Rene Olguin [place] [address] [place] [address] SAME DAY CARDIAC CATHETERIZATION LAB H&P ID: Jennifer Snyder is a 61 y.o. female with past medical history noted below who presents for diagnostic coronary angiogram. She underwent nuclear stress test on 02/2022 which revealed: Patient was being seen by Dr. Jade and was having an on going work up for Barretts esophagus- ultimately found to have an abnormal EKG and had a nuclear stress test noted above. Relevant Past Medical History Peripheral artery disease s/p 2000 L CEA (Dr Fong) 2004 R CEA (Dr Avendano) 2007 R fem-AK-pop bypass with GSV (Dr Avendano) 2012 L EIA stent (8x60 SE p7), RLE vein graft FIXED INCOME PORTFOLIO MANAGER (Dr Avendano) 04/27/18 R NEWSPAPER INSERTER/proximal graft and distal graft/pop FIXED INCOME PORTFOLIO MANAGER (6mm and 5mm balloons) 02/04/19 Redo R femoral endarterectomy/profundaplasty, revision of proximal vein graft c/b wound breakdown requiring I&D HTN HLD DM on Insulin pump Hyperthyroidism RLL wedge resection for pulmonary granuloma 06/25 ??GINGER/BSO '02 Jennifer Snyder has no planned upcoming surgeries. No recent or ongoing bleeding events. No black stools. Physical Exam: BP 146/52 (BP Location (NBP): Left arm) Pulse 67 Temp 36.9 ??C (98.4 ??F) (Temporal) Resp 16 Ht 170.2 cm (5' 7) Wt 73.2 kg (161 lb 4.8 oz) SpO2 98% BMI 25.26 kg/m?? Gen: Pleasant female in no apparent distress, able to lay flat. Cardiac: Regular rate, S1/S2 normal character and amplitude, no murmurs, rubs, or gallops. Pulm: Clear to auscultation bilaterally, no increased work of breathing. Ext: Palpable radial and femoral pulses bilaterally. Palpable DP pulses bilaterally. Neuro: Grossly normal neurologic exam without apparent focal deficit. ASA: 2: Patient with mild systemic disease Mallampati: III: only the base of the uvula can be seen Recent Labs: Recent CBC: No results for input(s): WBC, HGB, HCT, PLATELET in the last 7068 hours. Recent BMP: No results for input(s): NA, K, CL, CO2, BUN, CREATININE in the last 7068 hours. Previous cardiac diagnostic studies: General consent statement: The indications, expected benefits, and potential risks of heart catheterization were reviewed in detail with the patient. The potential for , heart attack, stroke, kidney failure, hemorrhage, allergic reaction, vascular complications and infection were reviewed in detail. The possibility of stenting and other percutaneous intervention, with associated risk, was reviewed. The possible need for emergent coronary artery bypass surgery was reviewed. Alternatives were discussed and the patient's questions were answered in full. Following this discussion, the patient consented to the procedure and signed a form attesting to this, which is in the chart. Patient is full code. Plan: -no apparent contraindication to DAPT, patient denies upcoming or planned procedures/operations, and denies ongoing or recent bleeding events -proceed as planned -consent signed Jacob Adler DO [employer] 05/17/2022 documented in this encounter Miscellaneous Notes * Brief Op Note - Rene Olguin MD - 05/17/2022 12:53 PM EST Images from the original note were not included. Preliminary Cardiac Catheterization Procedure Note: Patient Name: Jennifer Snyder : [id number] MR#: [id number] Case Date: 05/17/2022 Plate Embosser: Surgeon(s) and Role: * Rene Olguin MD - Primary * Jacob Adler DO - Fellow Preoperative diagnosis: Screening for cardiovascular condition [Z13.6] Abnormal stress test [R94.39] Cardiomyopathy, unspecified type [I42.9] Postoperative diagnosis: *ASCVD * Procedure(s) performed: [facility] Coronary angiography Stent insertion, coronary Access: right radial A time-out was conducted prior to the start of the procedure to verify the correct patient and procedure, procedure location, and all relevant critical information. Preliminary findings: Right dominant LM: 40% ostial, mild diffuse LAD: mild diffuse, scattered 30-40% with calcium throughout LCx: mild diffuse, heavy calcium RCA: mid 35%, distal 80%--> stented LVEDP 22 Recommend: 1. 3 months of aspirin, plavix, and pradaxa, then drop plavix. 2. Follow up Dr Jade. The patient tolerated the procedures smoothly and was transferred from the cardiac catheterization lab to the next level of care in stable condition. No evident early complications. Full report to follow. Rene Olguin MD documented in this encounter Plan of Treatment Upcoming Encounters Date Type Department Care Team (Late st Contact Info) Description 12/19/2023 1:00 PM EDT Tech Visit [place] [address] Marguerite Macias 12/19/2023 3:00 PM EDT Office [place] [address] Gardenia Golden, [facility] [place] [address] 01/29/2024 1:[address] [place] [address] César Escobar MD [facility] [address] 01/29/2024 2:30 PM EDT Office [place] [address] César Escobar MD [facility] [place] [address] documented as of this encounter Procedures Procedure Name Priority Date/Time Associated Diagnosis Comments EKG 12-LEAD Routine 05/17/2022 1:06 PM EST Coronary artery disease, unspecified vessel or lesion type, unspecified whether angina present, unspecified whether [place] or transplanted heart CARDIAC CATHETERIZATION Routine 05/17/2022 12:58 PM EST Screening for cardiovascular condition Abnormal stress test Cardiomyopathy, unspecified type POCT GLUCOSE Routine 05/17/2022 12:16 PM EST Cath Plmt Left Heart Cath & Arts W/Inj & Angio Img S&I ([id number]) 05/17/2022 11:47 AM EST Screening for cardiovascular condition Abnormal stress test Cardiomyopathy, unspecified type EKG 12-LEAD Routine 05/17/2022 11:25 AM EST Screening for cardiovascular condition Abnormal stress test Cardiomyopathy, unspecified type POCT GLUCOSE Routine 05/17/2022 10:59 AM EST documented in this encounter Results * EKG 12 Lead (05/17/2022 1:06 PM EST) Ventricular rate 68 BPM MUSE SYSTEM Atrial Rate 68 BPM MUSE SYSTEM P-R Interval 172 ms MUSE SYSTEM QRS Duration 98 ms MUSE SYSTEM Q-T Interval 436 ms MUSE SYSTEM QTC Calculated (Bezet) 463 ms MUSE SYSTEM Calculated P Stanton 65 degrees MUSE SYSTEM Calculated R Stanton 17 degrees MUSE SYSTEM Calculated T Stanton 114 degrees MUSE SYSTEM INTERPRETATION Normal sinus rhythm Minimal voltage criteria for LVH, may be normal variant ( [place] product ) ST & T wave abnormality, consider lateral ischemia Abnormal ECG When compared with ECG of 17-MAY-2022 11:25, No significant change was found Confirmed by fellow MD Ember, Meeta ([id number]) on 05/18/2022 2:36:53 PM Confirmed by MD Mimi, Clark Romero ([id number]) on 05/19/2022 5:42:29 PM MUSE SYSTEM 05/17/2022 1:06 PM EST 05/19/2022 5:42 PM EST Rene Olguin MD ECG ORDERABLES MUSE SYSTEM * CARDIAC CATHETERIZATION (05/17/2022 12:58 PM EST) Anatomical Region Laterality Modality Other Narrative 05/17/2022 6:17 PM EST ?[facility] ? Cardiac Catheterization/Intervention Report ? Patient Name: Jennifer Snyder. ? Procedure Date: 05/17/2022 ? A #: [id number] ? Primary Physician: Rene Olguin ? Case #: [id number] ? File Name: [id number] ? Catheterization Order Number: [id number] ? [facility] ? Final Report [place], [place] ? Patient Name: ? Jennifer J. [place] ?ID#: ?[id number] ? : ?1960 ? Procedure Date: ? May 17, 2022 ? Case #: ? [id number] ? Room: ? 5 ? Case Physician: ? Rene Olguin MJoby. ?Start: ?12:08 ?Fellow: ? Jacob Adler D.O. ?Admission: ??05/17/2022 ? Referring Physician: ??Nikhil Jade M.D. ? Procedures: ?* Coronary Angiography ?* Left Heart Catheterization ?* Coronary Stent Insertion ?* Arterial Blood Gases ? History ?Jennifer Snyder is a 61 year old woman. She has hypertension and a ?family history of coronary artery disease. The patient's smoking status ?is Former. She has hypercholesterolemia managed with lipid therapy. The ?patient has insulin dependent diabetes mellitus. She has sequelae from ?diabetes. The patient has a history of carotid artery disease, a carotid ?endarterectomy, a remote cerebral vascular accident and a calcified ?ascending aorta. She has a history of peripheral vascular disease. The ?patient also has a history of chronic obstructive pulmonary disease. ?Prior to the initiation of this procedure, the patient was designated as ?ASA Class II. The CSHA clinical frailty scale is 3: Managing Well. ? Diagnostic Tests: ?Prior Coronary Angiography: ? LV ejection fraction within 6 months is 30%. ?Electrocardiography: ? EKG was assessed by ECG. EKG was Abnormal. EKG showed other ? abnormality. ?Stress or Imaging Studies: ? A stress test with SPECT imaging was performed on 02/10/2022 and was ? Positive with Intermediate results. ?Medications Prior to Procedure: ? Aspirin, Angiotensin II Receptor Josy, Beta Josy and Statin. ? Indications for Diagnostic Cath: ?The priority of the diagnostic procedure was Elective. The indication for ?the skill labor visit is suspected CAD and LV dysfunction. Chest pain ?symptom assessment was: Atypical Angina. ? Technique: ?A 6 SLFr sheath was inserted in the right radial artery utilizing the ?Seldinger technique. The left coronary artery was injected utilizing a ?5Fr MAGALI RADIAL catheter. A 5Fr MAGALI RADIAL catheter was used to inject ?the right coronary artery. Left ventricular pressure was performed ?utilizing a 5Fr MAGALI RADIAL catheter. Coronary stent insertion was ?performed and the equipment utilized will be described in the ?intervention summary section. 5,000 units of heparin were administered. A ?total of 200cc of Omnipaque were opened, 80cc of Omnipaque were ?administered and 120cc of Omnipaque were wasted. Radiation: Fluoro time ?was 13.9 minutes, dose area product was 43,800 mGYcm2 and air kerma was ?628 mGY. See the case log for additional details. ?The patient received the following medications prior to and during the ?procedure: ? Unfractionated Heparin. ? Hemodynamics: ?Left Heart Pressures ? Resting: ? Syst Diast ? EDP ?a ?v ? m ?Ao 141 ?? 48 ?84 ?LV 141 ? 16 ? Coronary Angiography: ?Dominance: Right ?Left Main ? There was mild diffuse (<=25% stenosis) disease of the entire vessel ? segment of the left main artery. ??The ostial segment of the left ? main had a single discrete 40% stenosis. ?Left Anterior Descending ? There was mild diffuse (<=25% stenosis) disease of the entire vessel ? segment of the left anterior descending artery (LAD). ??The mid ? segment of the LAD had a calcified long segmental 50% stenosis. ? There was a 70% diffuse stenosis of the mid segment of the first ? diagonal branch (Diagonal 1) of the LAD. ??The Diagonal 1 was small. ? There was mild diffuse (<=25% stenosis) disease of the entire vessel ? segment of the second diagonal branch (Diagonal 2) of the LAD. ??The ? Diagonal 2 was small. ?Left Circumflex ? There was mild diffuse (<=25% stenosis) disease of the entire vessel ? segment of the left circumflex artery (LCX). ??The LCX was small. ? There was mild diffuse (<=25% stenosis) disease of the entire vessel ? segment of the first obtuse marginal branch (OM1) of the LCX. ?Right Coronary Artery ? There was mild diffuse (<=25% stenosis) disease of the entire vessel ? segment of the right coronary artery (RCA). ??The mid segment of the ? RCA had a diffuse 45% stenosis. ??There also was an 85% calcified ? single discrete stenosis of the distal segment of the RCA. ? Indication for Intervention: ?Coronary intervention was indicated for treatment of variant angina or ?atypical chest pain. The priority for the procedure was Elective. The ?NCDR indication for the procedure was Other PCI Indication. LVEF within ?one week was 35%. Syntax Score was Intermediate. ? Intervention Summary: ?Right Coronary Artery ? Distal 85% ? Stent insertion was performed on the 85% stenosis in the ? distal segment of the RCA. This was a de yoon lesion. ? According to the ACC/AHA classification system, this lesion ? was a type C moderate risk lesion. Primary prevention of ? restenosis was the indication for stent insertion. This was ? the culprit lesion. A guidewire was placed across this lesion. ? Vessel flow pre intervention was JENNY 3. Lesion length was ? 32mm. This lesion was severely calcified. ? Stent insertion was accomplished through a 6 Fr. JR 4 guide. ? The lesion was predilated with a 2.50mm NC EUPHORA 20 MM ? balloon with a maximum inflation pressure of 25 atmospheres. ? A premounted 3.00 x 34 mm Halsey Loup (LISBETH) was deployed ? with a maximum inflation pressure of 14 atmospheres. ? Following stent deployment, the lesion was dilated using a ? 3.25mm NC EUPHORA 20 MM balloon with a maximum inflation ? pressure of 26 atmospheres. ? The final outcome was defined as successful. There was no ? residual stenosis following this intervention. The final JENNY ? flow was 3. ? Vascular Access: ?Vascular Access Management: ? Mechanical Compression of the right radial artery access site was ? performed. ? Point of Care Testing: ?ABG: ? Arterial Blood gasses were performed using the I-Stat analyzer at ? 12:11: pH: 7.44, pCO2: 43.0, pO2: 57.0, sPO2: 90%, HCO3: 29 on FIO2: ? 2 L NC. ?I-Stat: ? I-Stat was performed using the I-Stat analyzer at 12:11: Na+: 134, ? K+: 4.4, iCa++: 1.14, Hct: 41%, Hb: 13.9. ? Dual Antiplatelet (DAPT) Recommendations: ?Drug eluting stent (LISBETH) inserted for stable ischemic heart disease ?(SIHD). ?P2Y12 Loading dose Clopidogrel 600 mg PO given in lab. ?Recommended anti-platelet/anti-thrombotic regimen: ?Start aspirin 81 mg daily now and continue for indefinitely. ?Start clopidogrel 75 mg daily now and continue for 3 months then stop. ?Start dabigatran 150 mg twice daily now and continue for indefinitely. ?These recommendations are made at the time of the intervention. Patient ?and provider preferences or a changing clinical situation may require ?modification of this regimen. Consult [facility] Interventional Cardiology for ?questions. ?High Bleeding Risk - Anticoagulation and DAPT: ?- ??Assess ischemic and bleeding risks using validated risk predictors ?(e.g. CHADS2-VASC, HAS-BLED, PRECISE DAPT, DAPT Score) ?- ??Keep anticoagulant and antiplatelet therapy duration as short as ?possible ?- ??Consider a target INR of 2.0-2.5 if warfarin is used ?- ??Clopidogrel is the P2Y12 inhibitor of choice ?- ??Use low-dose (less than 100 mg daily) aspirin if aspirin is used ?- ??PPIs (pantoprazole preferred) should be used in patients with a ?history of gastrointestinal bleeding and are reasonable to use in ?patients with increased risk of gastrointestinal bleeding ?- ??(Rec kiley 2.1 ??23 Aug 2019) ? Conclusions: ?* Two vessel coronary artery disease (LAD and RCA) ?* Successful stent insertion of the distal RCA lesion ?* See Dual Antiplatelet (DAPT) Recommendations above ? Complications/Events: ?The patient had no complications during these procedures. ? Post Procedure Fluid Recommendations: ?IV fluid at 219 mL/hr for 4 hours for a total of 876 mL. These ?recommendations are made at the time of the procedure. Patient and ?provider preferences or a changing clinical situation may require ?modification of this regimen. ?The attending physician was present for the entire procedure. ?Dr. Rene Olguin M.D. was present during the moderate sedation ?intraservice time as documented by the sedation nurse. ??Case time = 00:40. ?Dr. Rene Olguin M.D. performed the coronary angiography, left heart ?catheterization, ABG and stent insertion-coronary. ? Rene Olguin M.D. ? Electronically Signed by: Rene Olguin M.D. ? Report Finalized: 05/17/2022 ??18:11 ? Rene Olguin MD CARDIAC CATH ORDERAB LES * POCT Glucose (05/17/2022 12:16 PM EST) Pathologist [facility] [place] Glucose, POC 181 65 - 199 mg/dL [facility] Comment: Supplemental ranges: <140 mg/dL before meals <180 mg/dL all other times of the day Blood 05/17/2022 12:1 6 PM EST 05/17/2022 12:16 PM EST Rene Olguin MD POINT OF CARE TEST O RDERABLES [facility] [place] [address] * EKG 12 Lead (05/17/2022 11:25 AM EST) Ventricular rate 64 BPM MUSE SYSTEM Atrial Rate 64 BPM MUSE SYSTEM P-R Interval 186 ms MUSE SYSTEM QRS Duration 104 ms MUSE SYSTEM Q-T Interval 444 ms MUSE SYSTEM QTC Calculated (Bezet) 458 ms MUSE SYSTEM Calculated P Stanton 55 degrees MUSE SYSTEM Calculated R Stanton 13 degrees MUSE SYSTEM Calculated T Stanton 146 degrees MUSE SYSTEM INTERPRETATION Poor data quality Normal sinus rhythm Left ventricular hypertrophy with repolarization abnormality ( Nirav product ) Nonspecific T wave abnormality Abnormal ECG When compared with ECG of 04-FEB-2019 11:49, Moderate voltage criteria for LVH, may be normal variant is now present T wave abnormality is now present Confirmed by fellow MD Ember, Meeta ([id number]) on 05/18/2022 12:54:09 PM Confirmed by MD Le Jonathan C. ([id number]) on 05/19/2022 5:42:10 PM MUSE SYSTEM 05/17/2022 11:2 5 AM EST 05/19/2022 5:42 PM EST Rene Olguin MD ECG ORDERABLES MUSE SYSTEM * (ABNORMAL) POCT Glucose (05/17/2022 10:59 AM EST) Glucose, POC 204(H) 65 - 199 mg/dL [facility] Comment: Supplemental ranges: <140 mg/dL before meals <180 mg/dL all other times of the day Blood 05/17/2022 10:5 9 AM EST 05/17/2022 10:59 AM EST Rene Olguin MD POINT OF CARE TEST O RDERABLES [facility] [place] [address] documented in this encounter Visit Diagnoses Diagnosis CAD (coronary artery disease)- Primary Coronary atherosclerosis of unspecified type of vessel, [place] or graft Screening for cardiovascular condition Screening for other and unspecified cardiovascular conditions Abnormal stress test Other nonspecific abnormal cardiovascular system function study Cardiomyopathy, unspecified type Coronary artery disease, unspecified vessel or lesion type, unspecified whether angina present, unspecified whether [place] or transplanted heart Screening for cardiovascular condition Screening for other and unspecified cardiovascular conditions Abnormal stress test Other nonspecific abnormal cardiovascular system function study Cardiomyopathy, unspecified type documented in this encounter Admitting Diagnoses Diagnosis CAD (coronary artery disease) Coronary atherosclerosis of unspecified type of vessel, [place] or graft documented in this encounter Administered Medications Inactive Administered Medications - up to 3 most recent administrations Medication Order MAR Action Action Date Dose Rate Site aspirin EC tablet 81 mg 81 mg, Oral, DAILY, First dose on Mon05/18/22 at 0900, Until Discontinued, Recovery (Recovery-Hospital Unit), Routine clopidogreL (Plavix) tablet 75 mg 75 mg, Oral, DAILY, First dose on Mon05/18/22 at 0900, Until Discontinued, Recovery (Recovery-Hospital Unit), Routine sodium chloride 0.9% infusion 100 mL/hr, Intravenous, CONTINUOUS, Starting on Mon05/17/22 at 1330, Until Mon05/17/22 at 1729, Recovery (Recovery-Hospital Unit) New Bag 05/17/2022 1:15 PM EST 100 mL/hr 100 mL /hr documented in this encounter Active and Recently Administered Medications Times are shown in EST. Scheduled Medication Order 05/15/2022 05/16/2022 05/17/2022 aspirin EC tablet 81 mg 81 mg, Oral, DAILY, First dose on Mon05/18/22 at 0900, Until Discontinued, Recovery (Recovery-Hospital Unit), Routine clopidogreL (Plavix) tablet 75 mg 75 mg, Oral, DAILY, First dose on Mon05/18/22 at 0900, Until Discontinued, Recovery (Recovery-Hospital Unit), Routine Continuous Medication Order 05/15/2022 05/16/2022 05/17/2022 sodium chloride 0.9% infusion 100 mL/hr, Intravenous, CONTINUOUS, Starting on Mon05/17/22 at 1330, Until Mon05/17/22 at 1729, Recovery (Recovery-Hospital Unit) 1315 (New Bag - Prov ider: Rene Burdick RN) PRN Medication Order 05/15/2022 05/16/2022 05/17/2022 alum-mag hydroxide-simeth (Maalox) (40 mg-40 mg-4 mg/mL) oral liquid (CANCELED) ONCE PRN, Starting on Mon05/17/22 at 1251, Until Mon05/17/22 at 1653, Intra-Operative (Intra-Procedure), Routine 1251 (Given - Provid er: Alexandrea Lincoln RN) clopidogreL (Plavix) tablet (CANCELED) ONCE PRN, Starting on Mon05/17/22 at 1233, Until Mon05/17/22 at 1653, Intra-Operative (Intra-Procedure), Routine 1233 (Given - Provid er: Alexandrea Lincoln RN) fentaNYL (pf) (50 mcg/mL) multi-dose injection (CANCELED) ONCE PRN, Starting on e 05/17/22 at 1209, Until 05/17/22 at 1653, Intra-Operative (Intra-Procedure), Routine 1209 (Given - Provid er: Alexandrea Lincoln RN) heparin (porcine) (1,000 units/mL) injection (CANCELED) ONCE PRN, Starting on Mon05/17/22 at 1211, Until 05/17/22 at 1653, Intra-Operative (Intra-Procedure), Routine 1211 (Given - Provid er: Alexandrea Lincoln RN) iohexoL (Omnipaque) (350 mg/mL) solution (CANCELED) ONCE PRN, Starting on e 05/17/22 at 1252, Until 05/17/22 at 1653, Intra-Operative (Intra-Procedure), Routine 1252 (Given - Provid er: Rene Olguin MD) midazolam (pf) (Versed) (1 mg/mL) multi-dose injection (CANCELED) ONCE PRN, Starting on Mon05/17/22 at 1209, Until 05/17/22 at 1653, Intra-Operative (Intra-Procedure), Routine 1209 (Given - Provid er: Alexandrea Lincoln RN) nitroGLYcerin 100 mcg/mL intracoronary dilution (CANCELED) ONCE PRN, Starting on Mon05/17/22 at 1209, Until 05/17/22 at 1653, Intra-Operative (Intra-Procedure), Routine 1209 (Given - Provid er: Alexandrea Lincoln RN)1242 (Given - Provider: Rene Olguin MD) verapamiL (Isoptin) (2.5 mg/mL) injection (CANCELED) ONCE PRN, Starting on e 05/17/22 at 1209, Until 05/17/22 at 1653, Administer over 2 Minutes, Intra-Operative (Intra-Procedure) 1209 (Given - Provid er: Alexandrea Lincoln RN) documented in this encounter Care Teams Citrix Engineer Relationship Specialty Start Date End Date Shirley Yu MD [address] [place] [address] PCP - General 11/19/14 documented as of this encounter
--- OUTSIDE RECORDS SUMMARY | 2023-12-13 18:22 | XMS_ITS | Encounter Summary ---
[place] [address] Care Team Providers Care Foundation Drill Operator Name Role Phone Shirley Yu MD Primary Care Provider [phone] Encounter Details Date Type Department Care Team (Late st Contact Info) Description 12/31/2021 Telephone [place] [address] Randa Varma Social History Tobacco Use Types Packs/Day Years [...] encounter Miscellaneous Notes * Telephone Encounter - Randa Varma - 12/31/2021 1:43 PM EDT Placed outgoing phone call to patient in order to schedule a procedure. Phone Call Outcome: Left voicemail asking for return call. This was the 1st attempt If the call is returned, it can be handled by: [facility] Endoscopy Surface Boss PANFILO case in depot, left MYCHAL # for callback. documented in this encounter Plan of Treatment Upcoming Encounters Date Type Department Care Team (Late st Contact Info) Description 12/19/2023 1:00 PM EDT Tech [place] [address] Marguerite Macias 12/19/2023 3:00 PM EDT Office [place] [address] Gardenia Golden, DEVELOPER PROGRAMMER ANALYST [facility] DR VASCULAR SURGERY [place], [place] [id number] 01/29/2024 1:[address] [place] [address] César Escobar MD [facility] DR THORACIC [place] [address] 01/29/2024 2:30 PM EDT Office [place] [address] César Escobar MD [facility] [place] [address] documented as of this encounter Visit Diagnoses Not on filedocumented in this encounter Care Teams Foundation Drill Operator Relationship Specialty Start Date End Date Shirley Yu MD [address] [place] [address] PCP - General 11/19/14 documented as of this encounter
--- OUTSIDE RECORDS SUMMARY | 2023-12-13 18:22 | XMS_ITS | Encounter Summary ---
[place] [address] Care Team Providers Care Bakery Worker Name Role Phone Shirley Yu MD Primary Care Provider [phone] Reason for Referral * Consultation (Routine) - Closed Specialty Diagnoses / Procedures Referred By Dominik mcleod Referred To Contact Vascular Surgery Diagnoses Leg edema, right Tanski - R LE - 2-6 weeks Cecilia Dickerson [address] [place] [address] [facility] [address] [place] [address] Referral ID Status Reason Start Date Expiration Date V isits Requested Visits Authorized [id number] Closed Consult, Test & Treat PCP Updated and/or Approved 03/11/2022 03/11/2023 1 1 Encounter Details Date Type Department Care Team (Late st Contact Info) Description 03/11/2022 Transcribe Orders eD Incoming Referrals [phone] Cecilia Dickerson [address] [place], [place] [id number] Leg edema, right Social History Tobacco Use Types Packs/Day Years [...] PM EDT Tech Visit Vascular Lab at [place] [phone] Rosa Maciastanguille Gonzalez 12/19/2023 3:00 PM EDT Office Visit [place] [address] Gardenia Golden APRN [facility] [place] [address] 01/29/2024 1:[address] Scan at [place] [phone] César Escobar MD [facility] [place] [address] 01/29/2024 2:30 PM EDT Office Visit Thoracic Surgery at [place] [phone] César Escobar MD [facility] [place] [address] Scheduled Referrals Name Type Priority Associated Diagnoses Orde r Schedule Referral to Vascular Surgery Outpatient Referral Routine Leg edema, right Ordered: 03/11/2022 documented as of this encounter Visit Diagnoses Diagnosis Leg edema, right Edema documented in this encounter Care Teams Bakery Worker Relationship Specialty Start Date End Date Shirley Yu MD [address] [place] [address] PCP - General 11/19/14 documented as of this encounter
--- OUTSIDE RECORDS SUMMARY | 2023-12-13 18:22 | XMS_ITS | Encounter Summary ---
Author Organization [facility] [address] Care Team Providers Care Mechanic Field Service Name Role Phone Shirley Yu MD Primary Care Provider [phone] Reason for Visit * Diagnostic Test (Routine) - Closed Specialty Diagnoses / Procedures Referred By Dominik mcleod Referred To Contact Diagnoses Leg swelling Procedures LE Unilateral Valvular Incomp Study Ofelia Polanco APRN [facility] [place] [address] [facility] Vascular Lab [address] [place] [address] Referral ID Status Reason Start Date Expiration Date V isits Requested Visits Authorized [id number] Closed Specialty Service Requested 03/15/2022 03/15/2023 1 1 Encounter Details Date Type Department Care Team (Late st Contact Info) Description 04/21/2022 1:00 PM EST Tech [place] [address] Lulu Reveles [place] Leg swelling; S/P bypass graft of extremity [...] PM EDT Tech [place] [phone] Marguerite Macias 12/19/2023 3:00 PM EDT Office [place] [address] Gardenia Golden APRN [facility] [place] [address] 01/29/2024 1:[address] [place] [address] César Escobar MD [facility] [address] THORACIC SURGERY [place], [place] [id number] 01/29/2024 2:30 PM EDT Office [place] [address] César Escobar MD [facility] [place] [address] documented as of this encounter Procedures Procedure Name Priority Date/Time Associated Diagnosis Comments UNILATERAL BYPASS GRAFT ASSESS Routine 04/21/2022 1:01 PM EST Leg swelling S/P bypass graft of extremity SHEFALI, LEGS, MULTIPLE LEVELS Routine 04/21/2022 1:01 PM EST Leg swelling S/P bypass graft of extremity documented in this encounter Results * SHEFALI, legs, multiple levels (04/21/2022 1:01 PM EST) VB Text Report Department: Vascular Surgery Lab Patient: [id number] (JENNIFER SNYDER) CPT: 94638 Referring Physician: EPIFANIO KENT ?? Phone: Indications: ?? F/U R FILLER BLENDER to [place] POP bypass graft, ? change [...] ? Dorsalis Pedis (Ankle) Artery ?98 ?0.58 ??Mccurtain-Biphasic ? Posterior Tibial (Ankle) Artery ??94 ?0.56 ??Mccurtain-Biphasic ? Great Toe ?80 ? 0.48 ?? [...] Epifanio Kent APRN VASCULAR ORDERABLES VASCUBASE * Unilat Bypass Graft Assess (04/21/2022 1:01 PM EST) VB Text Report Department: Vascular Surgery Lab Patient: [id number] (JENNIFER SNYDER) CPT: 20882 Referring Physician: EPIFANIO KENT ?? Phone: Indications: F/U R FILLER BLENDER-AK POP bypass graft, ? patency/stenosis Findings: Right [...] status documented in this encounter Care Teams Mechanic Field Service Relationship Specialty Start Date End Date Shirley Yu MD [address] [place] [address] PCP - General 11/19/14 documented as of this encounter
--- OUTSIDE RECORDS SUMMARY | 2023-12-13 18:22 | XMS_ITS | Encounter Summary ---
[place] [address] Care Team Providers Care Long Term Care Social Worker Name Role Phone Shirley Yu MD Primary Care Provider [phone] Encounter Details Date Type Department Care Team (Late st Contact Info) Description 05/18/2022 Tele[place] [phone] Ailyn Armstrong RN Social History Tobacco Use Types Packs/Day [...] encounter Miscellaneous Notes * Telephone Encounter - Ailyn Armstrong RN - 05/18/2022 11:01 AM EST Attempted to contact this patient in regards to participation in outpatient cardiac rehab. She is s/p PCI and was discharged home late yesterday. Left a voice message asking her to return my call at her earliest convenience. documented in this encounter Plan of Treatment Upcoming Encounters Date Type Department Care Team (Late st Contact Info) Description 12/19/2023 1:00 PM EDT Tech [place] [address] Marguerite Macias 12/19/2023 3:00 PM EDT Office [place] [address] Gardenia Golden, LADARIUS [facility] [place] [address] 01/29/2024 1:[address] [place] [address] César Escobar MD [facility] [place] [address] 01/29/2024 2:30 PM EDT Office [place] [address] César Escobar MD [facility] [place] [address] documented as of this encounter Visit Diagnoses Not on filedocumented in this encounter Care Teams Long Term Care Social Worker Relationship Specialty Start Date End Date Shirley Yu MD [address] [place] [address] PCP - General 11/19/14 documented as of this encounter
--- OUTSIDE RECORDS SUMMARY | 2023-12-13 18:22 | XMS_ITS | Encounter Summary ---
[place] [address] Care Team Providers Care Med Admin Name Role Phone Shirley Yu MD Primary Care Provider [phone] Reason for Referral * Diagnostic Test (Routine) - Authorized Specialty Diagnoses / Procedures Referred By Contac t Referred To Contact Diagnoses PVD (peripheral vascular disease) Procedures Unilat Bypass Graft Assess Yue Jama PA [facility] [place] [address] [facility] [address] [place] [phone] Referral ID Status Reason Start Date Expiration Date Visits Requested Visits Authorized [id number] Authorized Specialty Service Requested 05/08/2023 05/07/2024 1 1 * Diagnostic Test (Routine) - Authorized Specialty Diagnoses / Procedures Referred By Contac t Referred To Contact Diagnoses PVD (peripheral vascular disease) Procedures SHEFALI, legs, multiple levels Yue Jama PA [facility] [place] [address] [facility] [address] [place] [phone] Referral ID Status Reason Start Date Expiration Date Visits Requested Visits Authorized [id number] Authorized Specialty Service Requested 05/08/2023 05/07/2024 1 1 * Diagnostic Test (Routine) - Authorized Specialty Diagnoses / Procedures Referred By Dominik mcleod Referred To Contact Diagnoses Bilateral carotid artery stenosis Procedures Carotid Duplex, Bilateral Yue Jama PA [facility] [place] [address] [facility] [address] [place] [address] Referral ID Status Reason Start Date Expiration Date Visits Requested Visits Authorized [id number] Authorized Specialty Service Requested 05/08/2023 05/07/2024 1 1 Encounter Details Date Type Department Care Team (Late st Contact Info) Description 05/04/2023 2:30 PM EST Office [place] [phone] Yue Jama PA [facility] [place] [address] PVD (peripheral vascular disease); Bilateral carotid artery [...] Pulse 61 05/04/2023 1:51 PM EST Temperature - - Respiratory Rate - - Oxygen Saturation - - Inhaled Oxygen Concentration - - Weight 69.9 kg (154 lb) 05/04/2023 1:48 PM EST Height 168.9 cm (5' 6.5) 05/04/2023 1:48 PM EST Body Mass Index 24.48 05/04/2023 1:48 PM EST documented in this encounter Progress Notes * Yue Jama PA - 05/04/2023 2:30 PM EST Vascular Follow-Up Reason for Visit: Jennifer Snyder is a 62 y.o. female presenting for PAD and Carotid stenosis. HPI: 62 y.o. female with PMH: HTN, HLD, DM on Insulin pump, hyperthyroidism, RLL wedge resection for pulmonary granuloma 06/25, GINGER/BSO '02 who is here for follow up of carotid stenosis and PAD. Patient denies any claudication, rest pain, wounds or tissue loss on their lower extremities, fever, chills, chest pain or shortness of breath. Patient states being compliant with their daily medicine regimen including: ASA, Pradaxa, Plavix and statin. She is a past smoker, having quit in 2014. Pt deniesany signs or symptoms of CVA/TIA including: monocular vision loss, facial droop, garbled speech, unilateral numbness/weakness in extremity. Pt stays active looking after her pets including her pot belly pig and completes all of her ADLs independently. 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 Intermittent claudication I73.9 PAD (peripheral artery disease) I73.9 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 Entresto 24-26 mg tablet Take 1 tablet by mouth 2 times daily. clopidogreL (Plavix) 75 mg Tablet Take 1 tablet by mouth daily. (Patient not taking: Reported on 01/16/2023) 90 tablet 3 Levothyroxine (Tirosint) 150 mcg Capsule 0 Refill(s) carvediloL (Coreg) 6.25 mg Tablet rosuvastatin (Crestor) 5 mg Tablet Take 5 mg by mouth daily. chlorthalidone (Hygroten) 25 mg Tablet ferrous gluconate 324 mg (38 mg iron) Tablet TAKE ONE TABLET BY MOUTH EVERY DAY Magnesium Oxide 250 mg magnesium Tablet Take by mouth. citalopram (CeleXA) 20 mg Tablet Take by mouth. glucagon HCl (GLUCAGON, HUMAN RECOMBINANT,) 1 mg Recon Soln Inject 1 mg into the muscle as needed (as needed for hypoglycemia). (Patient not taking: Reported on 01/16/2023) 1 mL 3 acetaminophen (TYLENOL) 500 mg Tablet Take 1 tablet by mouth every 4 hours as needed for Pain. (Patient not taking: Reported on 01/16/2023) 30 tablet 1 dabigatran (PRADAXA) 150 mg Capsule Take 1 capsule by mouth 2 times daily. 180 capsule 0 insulin aspart U-100 (NovoLOG) 100 unit/mL Solution Inject subcutaneously 3 times daily (with meals). ONETOUCH ULTRA TEST Strip 1 strip by Other route 4 times daily. 4 pantoprazole (PROTONIX) 40 mg Tablet, Delayed Release (E.C.) TAKE ONE TABLET BY MOUTH TWICE A DAY 98 [employer]abetic [employer]lies, [employer]. Misc Form faxed to [employer] for pump supplies. 100 each 12 losartan (COZAAR) 100 mg Tablet Take 50 mg by mouth daily. aspirin 81 mg EC tablet Take 81 mg by mouth daily. insulin lispro (HUMALOG) 100 unit/mL injection Inject 55-60 Units subcutaneously continuous. Via insulin pump No current facility-administered medications on file prior to visit. Allergies: Allergies Allergen Reactions Sulfa (Sulfonamide Antibiotics) Other (See Comments) Renal failure, bleeding Pcn [Penicillins] Unknown Penicillin Trimethoprim ROS 10 point review of systems negative except those noted in HPI. Physical Exam: BP 151/52 (BP Location (NBP): Left arm, Patient Position: Sitting, BP Cuff Sizes: Adult (25-34 cm)) Pulse 61 Ht 168.9 cm (5' 6.5) Wt 69.9 kg (154 lb) BMI 24.48 kg/m?? Physical Exam GEN: Alert, appeared stated age in no acute distress SKIN: Warm, pink and dry. Extremities: Bilateral UE and LE warm and pink. No edema. No wounds. HEENT: Normocephalic and atraumatic CV: Regular rate and rhythm. S1 and S2 present on auscultation PULM: Lung sounds clear to auscultation bilaterally ABD: Soft, non-tender to palpation, non-distended. No palpable aortic plus or abdominal masses. NEURO: No gross sensory or motor deficits. Vascular Exam: R L Carotid Bruit No No Radial 2/2 2/2 Femoral 2/2 2/2 Popliteal 0/2 0/2 DP 2/2 0/2 PT 2/2 0/2 Labs: No results found for this or any previous visit (from the past 24 hour(s)). Vascular Studies Carotid Duplex, Bilateral Findings:05/04/2023 ICA Proximal, Right PSV (cm/s): 94 EDV (cm/s): 26 ICA/CCA: 1.5 Plaque Structure: Echogenic Plaque Surface: Irregular %Stenosis: <15% ICA Distal, Right PSV (cm/s): 68 EDV (cm/s): 19 ICA/CCA: 1.1 CCA Distal, Right PSV (cm/s): 62 EDV (cm/s): 10 %Stenosis: <50% CCA Proximal, Right PSV (cm/s): 110 EDV (cm/s): 5 External Carotid Artery, Right PSV (cm/s): 95 EDV (cm/s): 4 %Stenosis: <50% Vertebral, Right PSV (cm/s): 82 EDV (cm/s): 14 Direction of Flow: Antegrade ICA Proximal, Left PSV (cm/s): 361 EDV (cm/s): 83 ICA/CCA: 4.6 Plaque Structure: Echogenic Plaque Surface: Irregular %Stenosis: 50-79% ICA Middle, Left PSV (cm/s): 197 EDV (cm/s): 66 ICA/CCA: 2.5 ICA Distal, Left PSV (cm/s): 197 EDV (cm/s): 66 ICA/CCA: 2.5 CCA Distal, Left PSV (cm/s): 79 EDV (cm/s): 17 %Stenosis: <50% CCA Proximal, Left PSV (cm/s): 84 EDV (cm/s): 13 External Carotid Artery, Left PSV (cm/s): 244 EDV (cm/s): 5 %Stenosis: >50% Vertebral, Left PSV (cm/s): 56 EDV (cm/s): 15 Direction of Flow: Antegrade Interpretation: RIGHT: There [...] and velocities bilaterally. Previous Carotid Studies: Date RIGHT ICA Stenosis PSV Ratio LEFT ICA Stenosis PSV Ratio <15% 76 0.90 50-59% 225 2.50 <15% 83 0.90 50-59% 241 2.60 <15% 83 0.80 50-69% 315 4.10 <15% 84 1.00 50-69% 315 3.40 <15% 92 1.70 50-69% 326 3.70 <15% 108 1.30 50-79% 384 3.70 <15% 80 1.20 50-79% 348 3.90 Current Exam <15% 94 1.50 50-79% 361 4.60 ABIs Findings:05/04/2023 Right Pressure (mm Hg) SHEFALI Waveform TBI Brachial Artery 145 Dorsalis Pedis (Ankle) Artery 145 0.98 Triphasic Posterior Tibial (Ankle) Artery 159 1.07 Bi-Triphasic Great Toe 95 0.64 Left Pressure (mm Hg) SHEFALI Waveform TBI Brachial Artery 148 Dorsalis Pedis (Ankle) Artery 63 0.43 Monophasic Posterior Tibial (Ankle) Artery 76 0.51 Bryan-Biphasic Great Toe 44 0.30 Interpretation: RIGHT: No significant lower extremity arterial [...] ABIs with change from previous value: Date RIGHT DP RIGHT PT RT GR TOE RT Sec TOE 0.89 0.95 ---- ---- 0.88(-.01) 0.94(-.01) 0.63 ---- 0.89(+.01) 0.90(-.04) 0.56(-.07) ---- 1.03(+.14) 0.99(+.09) 0.58(+.02) ---- 0.98(-.05) 1.04(+.05) 0.62(+.04) ---- 0.98( .00) 1.03(-.01) 0.62( .00) ---- 0.94(-.04) 1.01(-.02) 0.66(+.04) ---- 1.01(+.07) 1.01( .00) 0.67(+.01) ---- 1.08(+.07) 1.14(+.13) 0.82(+.15) ---- Current 0.98(-.10) 1.07(-.07) 0.64(-.18) ---- Date LEFT DP LEFT PT LT GR TOE LT Sec TOE 0.62 0.62 ---- ---- 0.59(-.03) 0.59(-.03) 0.40 ---- 0.55(-.04) 0.62(+.03) 0.37(-.03) ---- 0.53(-.02) 0.54(-.08) 0.36(-.01) ---- 0.56(+.03) 0.60(+.06) 0.36( .00) ---- 0.54(-.02) 0.59(-.01) 0.30(-.06) ---- 0.54( .00) 0.58(-.01) 0.34(+.04) ---- 0.48(-.06) 0.51(-.07) 0.32(-.02) ---- 0.58(+.10) 0.56(+.05) 0.48(+.16) ---- Current 0.43(-.15) 0.51(-.05) 0.30(-.18) ---- More studies have been completed than are shown. Unilat Bypass Graft Assess Findings:05/04/2023 Right PSV (cm/s) EDV Common Femoral Artery, Proximal 266 14 Common Femoral Artery, Mid 195 7 Popliteal Artery, Above Knee 67 0 Right Fem-Pop AK SEGMENT PSV (cm/s) EDV Location Right Inflow Artery (Graft) 195 7 Common Femoral, Right Inflow Anastomosis, Right 95 0 Common Femoral, Right Right Proximal Graft 46 0 Right High Thigh (Graft) 74 0 Right Mid Graft 49 0 Right Mid Thigh (Graft) 49 0 Right Distal Graft 61 0 Outflow Anastomosis, Right 93 0 Popliteal, Above Knee Right Right Outflow Artery (Graft) 67 0 Popliteal, Above Knee Right Interpretation: RIGHT: Patent common femoral artery to above knee popliteal artery bypass graft with no identifiable region of stenosis within the graft. There are elevated velocities noted in the proximal common femoral artery inflow (PSV 266 cm/s; previously 258 cm/s). Assessment and Plan: Jennifer Snyder 62 y.o. female with PMH: See HPI. Pt with stable carotid artery stenosis on duplex today: R ICA <15% stenosis and L ICA 50-79%. Patient remains asymptomatic. Given PSV of 361 and ICA/CCA ratio of 4.6 plan of care will be to follow up in 6 months with repeat carotid duplex. Pt with PAD. Pt is asymptomatic no claudication, rest pain or wounds. Studies were reviewed with pt. ABIs are stable in RLE: No significant lower extremity arterial occlusive disease. Toe-brachial index substantially lower than ankle-brachial index indicates presence of mild arterial occlusive disease in the foot. ABIs stable in LLE: Moderate lower extremity arterial occlusive disease. Toe-brachial index substantially lower than ankle-brachial index indicates presence ofmoderately severe arterial occlusive disease in the foot with monophasic and mono-biphasic wave forms in DP and PT arteries. Duplex of bypass graft today showed RIGHT: Patent common femoral artery to above knee popliteal artery bypass graft with no identifiable region of stenosis within the graft. Recommend continued medical management at this time. Continue ASA, Pradaxa, Plavix, statin. Recommend tight control of co-morbidities and continued abstinence from smoking. Encourage patient to continue daily walking exercise. Pt educated to avoid barefoot ambulation due to decreased blood flow in her feet she may not heal a foot wound as redially. Plan of care for pt to follow up in 6 months with repeat ABIs and bypass graft duplex. Instructed to call the clinic with any concerns prior to nextappointment including: increased claudication, wounds on LE or rest pain. Pt is amendable to plan at this time. Yue Jama PA-C Department of Vascular Surgery documented in this encounter Plan of Treatment Upcoming Encounters Date Type Department Care Team (Late st Contact Info) Description 12/19/2023 1:00 PM EDT Tech [place] [phone] Marguerite Macias 12/19/2023 3:00 PM EDT Office [place] [phone] Gardenia Golden, LADARIUS [facility] [place] [address] 01/29/2024 1:[address] [place] [phone] César Escobar MD [facility] [place] [address] 01/29/2024 2:30 PM EDT Office [place] [phone] César Escobar MD [facility] [place] [address] documented as of this encounter Visit Diagnoses Diagnosis PVD (peripheral vascular disease) Peripheral vascular disease, unspecified Bilateral carotid artery stenosis Occlusion and stenosis of multiple and bilateral precerebral arteries without mention of cerebral infarction documented in this encounter Care Teams Med Admin Relationship Specialty Start Date End Date Shirley Yu MD [address] [place] [address] PCP - General 11/19/14 documented as of this encounter
--- OUTSIDE RECORDS SUMMARY | 2023-12-13 18:22 | XMS_ITS | Encounter Summary ---
Author Organization [facility] [place] [address] Care Team Providers Care Territory Business Manager Name Role Phone Shirley Yu MD Primary Care Provider [phone] Reason for Visit * Auth/Cert (Routine) Specialty Diagnoses / Procedures Referred By Dominik mcleod Referred To Contact Diagnoses Screening for cardiovascular condition [Z13.6] Abnormal stress test [R94.39] Cardiomyopathy, unspecified type [I42.9] Procedures PRG CATH PLMT LEFT HEART CATH & ARTS W/INJ & ANGIO IMG S&I CARDIAC CATHETERIZATION CORONARY ANGIOGRAPHY; W LHC,POSSIBLE PCI Rene Olguin MD [facility] [place] [address] [facility] Referral ID Status Reason Start Date Expiration Date Visits Re quested Visits Authorized [id number] 1 1 Encounter Details Date Type Department Care Team (Late st Contact Info) Description 05/17/2022 1:00 PM EST - 05/17/2022 2:00 PM EST [place] [phone] Rene Olguin MD [facility] [address] CARDIAC CATHETERIZATION Social History Tobacco Use Types Packs/Day Years [...] Sign Reading Time Taken Comments Blood Pressure 81/42 05/17/2022 2:00 PM EST Pulse 71 05/17/2022 2:00 PM EST Temperature 36.9 ??C (98.4 ??F) 05/17/2022 10:[address] Respiratory Rate 17 05/17/2022 2:00 PM EST Oxygen Saturation 92% 05/17/2022 2:00 PM EST Inhaled Oxygen Concentration - - Weight 73.2 kg (161 lb 4.8 oz) 05/17/2022 10:45 AM EST Height 170.2 cm (5' 7) 05/17/2022 10:45 AM EST Body Mass Index 25.26 05/17/2022 10:45 AM EST documented in this encounter Discharge Summaries * Jacob Adler DO - 05/17/2022 5:20 PM EST Discharge Summary Patient Name: Jennifer Snyder Patient Age: 61 y.o. Language: Guinean Race: White Ethnicity: Not nor Admit date: [...] please contact your inpatient physician through the [facility] Immunopathologist . Issues afterhours and on weekends will [...] Operations: Procedure(s): CARDIAC CATHETERIZATION CORONARY ANGIOGRAPHY; W [facility],POSSIBLE PCI 05/17/2022 History of Presentation: Jennifer Snyder [...] stent (8x60 SE p7), RLE vein graft PHARMACY COORDINATOR (Dr Avendano) 04/27/18??R R AND D LAB TECHNICIAN/proximal graft and distal graft/pop PHARMACY COORDINATOR (6mm and 5mm balloons) 10/28/19??Redo R femoral endarterectomy/profundaplasty, revision of proximal vein graft c/b wound breakdown requiring I&D HTN HLD DM??on Insulin pump Hyperthyroidism RLL wedge resection for pulmonary granuloma 06/25 ??GINGER/BSO '02 Hospital Course: Patient was admitted to same [...] Diabetic Supplies, Miscellan. Misc Form faxed to [employer] for pump supplies. Quantity: 100 each Refills: [...] please contact your inpatient physician through the [facility] Immunopathologist . Issues afterhours and on weekends will [...] please contact your inpatient physician through the [facility] Immunopathologist . Issues afterhours and on weekends will [...] TWICE A DAY 98 07/26/2016 Diabetic Supplies, Miscellan. Misc Form faxed to [employer] for pump supplies. 100 each 12 03/23/2015 [...] Regalado RN - 05/17/2022 7:08 PM EST [facility] Short Stay Unit Discharge Note All relevant [...] stopped. Site redressed with Syvek and tegaderm. MD consulted (Vitor.) Pt wants to go home.Per conversation with . Pt advised to call Cardiac Team at night if ooze, and if significant, to call 911. documented in this encounter H&P Notes * Jacob Adler DO - 05/17/2022 10:55 AM EST Images from the original note were not included. Patient Name: Jennifer Snyder Patient Age: 61 y.o. Birthdate: 1960 Admit date: 05/17/2022 Attending Physician: Rene Olguin MD [facility] [place] [address] SAME DAY CARDIAC CATHETERIZATION LAB H&P ID: [...] stent (8x60 SE p7), RLE vein graft PHARMACY COORDINATOR (Dr Avendano) 04/27/18 R R AND D LAB TECHNICIAN/proximal graft and distal graft/pop PHARMACY COORDINATOR (6mm and 5mm balloons) 02/04/19 Redo R [...] events -proceed as planned -consent signed Jacob Adlre DO [employer]aster 05/17/2022 documented in this encounter Miscellaneous Notes * Brief Op Note - Rene Olguin MD - 05/17/2022 12:53 PM EST Images from the original note were not included. Preliminary Cardiac Catheterization Procedure Note: Patient Name: Jennifer Snyder : [id number] MR#: [id number] Case Date: 05/17/2022 Immunopathologist: Surgeon(s) and Role: * Rene Olguin MD - Primary * Jacob Adler DO - Fellow Preoperative diagnosis: Screening for cardiovascular condition [Z13.6] Abnormal stress test [R94.39] Cardiomyopathy, unspecified type [I42.9] Postoperative diagnosis: *ASCVD * Procedure(s) performed: [facility] Coronary angiography Stent insertion, coronary Access: right [...] PM EDT Tech Visit Vascular Lab at [place] [phone] Marguerite Macias 12/19/2023 3:00 PM EDT Office Visit [place] [address] Gardenia Golden APRN [facility] [place] [address] 01/29/2024 1:[address] [place] [address] César Escobar MD [facility] [place] [address] 01/29/2024 2:30 PM EDT Office [place] [address] César Escobar MD [facility] [place] [address] documented as of this encounter Procedures Procedure Name Priority Date/Time Associated Diagnosis Comments EKG 12-LEAD Routine 05/17/2022 1:06 PM EST Coronary artery disease, unspecified vessel or lesion type, unspecified whether angina present, unspecified whether kotlik or transplanted heart CARDIAC CATHETERIZATION Routine 05/17/2022 12:58 PM EST Screening for cardiovascular condition Abnormal stress test Cardiomyopathy, unspecified type POCT GLUCOSE Routine 05/17/2022 12:16 PM EST Cath [facility] Left Heart Cath & Arts W/Inj & Angio Img S&I ([id number]) 05/17/2022 11:47 AM EST Screening for cardiovascular [...] (Bezet) 463 ms MUSE SYSTEM Calculated P [place] 65 degrees MUSE SYSTEM Calculated R [place] 17 degrees MUSE SYSTEM Calculated T [place] 114 degrees MUSE SYSTEM INTERPRETATION Normal sinus rhythm Minimal voltage criteria for LVH, may be normal variant ( [place] product ) ST & T wave abnormality, consider lateral ischemia Abnormal ECG When compared with ECG of 17-MAY-2022 11:25, No significant change was found Confirmed by fellow MD Ember, Meeta ([id number]) on 05/18/2022 2:36:53 PM Confirmed by MD Mimi, Clark Romero ([id number]) on 05/19/2022 5:42:29 PM MUSE SYSTEM 05/17/2022 1:06 PM EST 05/19/2022 5:42 PM EST Rene Olguin MD ECG ORDERABLES MUSE SYSTEM * CARDIAC CATHETERIZATION (05/17/2022 12:58 PM EST) Anatomical Region Laterality Modality Other Narrative 05/17/2022 6:17 PM EST ?[facility] ? Cardiac Catheterization/Intervention Report ? Patient Name: Jennifer Snyder J. ? Procedure Date: 05/17/2022 ? A #: [id number] ? Primary Physician: Rene Olguin ? Case #: [id number] ? File Name: [id number] ? Catheterization Order Number: [id number] ? [facility] ? Final Report [place], [place] ? Patient Name: ? Jennifer J. Fleming ?ID#: ?[id number] ? : ?1960 ? Procedure Date: ? May 17, 2022 ? Case #: ? [id number] ? Room: ? 5 ? Case Physician: ? Rene Olguin MSonnyD. ?Start: ?12:08 ?Fellow: ? Jacob Adler, D.O. ?Admission: ??05/17/2022 ? Referring Physician: ??Nikhil [...] was designated as ?ASA Class II. The [facility] clinical frailty scale is 3: Managing Well. [...] procedure was Elective. The indication for ?the high density press laborer visit is suspected CAD and LV dysfunction. [...] ? A premounted 3.00 x 34 mm [place] (LISBETH) was deployed ? with a maximum [...] may require ?modification of this regimen. Consult [facility] Interventional Cardiology for ?questions. ?High Bleeding Risk [...] POCT Glucose (05/17/2022 12:16 PM EST) Pathologist [facility] Glucose, POC 181 65 - 199 mg/dL [facility] Comment: Supplemental ranges: <140 mg/dL before meals <180 mg/dL all other times of the day Blood 05/17/2022 12:1 6 PM EST 05/17/2022 12:16 PM EST Rene Olguin MD POINT OF CARE TEST O RDERABLES [facility] [place] [address] * EKG 12 Lead (05/17/2022 11:25 AM EST) Ventricular rate 64 BPM MUSE SYSTEM Atrial Rate 64 BPM MUSE SYSTEM P-R Interval 186 ms MUSE SYSTEM QRS Duration 104 ms MUSE SYSTEM Q-T Interval 444 ms MUSE SYSTEM QTC Calculated (Bezet) 458 ms MUSE SYSTEM Calculated P [place] 55 degrees MUSE SYSTEM Calculated R [place] 13 degrees MUSE SYSTEM Calculated T [place] 146 degrees MUSE SYSTEM INTERPRETATION Poor data quality Normal sinus rhythm Left ventricular hypertrophy with repolarization abnormality ( [place] product ) Nonspecific T wave abnormality Abnormal ECG When compared with ECG of 04-FEB-2019 11:49, Moderate voltage criteria for LVH, may be normal variant is now present T wave abnormality is now present Confirmed by fellow MD Ember, Meeta ([id number]) on 05/18/2022 12:54:09 PM Confirmed by MD iMmi, Clark Romero ([id number]) on 05/19/2022 5:42:10 PM MUSE SYSTEM 05/17/2022 11:2 5 AM EST 05/19/2022 5:42 PM EST Rene Olguin MD ECG ORDERABLES MUSE SYSTEM * (ABNORMAL) POCT Glucose (05/17/2022 10:59 AM EST) Glucose, POC 204(H) 65 - 199 mg/dL [facility] Comment: Supplemental ranges: <140 mg/dL before meals <180 mg/dL all other times of the day Blood 05/17/2022 10:5 9 AM EST 05/17/2022 10:59 AM EST Rene Olguin MD POINT OF CARE TEST O RDERABLES [facility] [place] [address] documented in this encounter Visit Diagnoses Diagnosis CAD (coronary artery disease)- Primary Coronary atherosclerosis of unspecified type of vessel, [place] or graft Screening for cardiovascular condition Screening for other and unspecified cardiovascular conditions Abnormal stress test Other nonspecific abnormal cardiovascular system function study Cardiomyopathy, unspecified type Coronary artery disease, unspecified vessel or lesion type, unspecified whether angina present, unspecified whether [place] or transplanted heart Screening for cardiovascular condition Screening for other and unspecified cardiovascular conditions Abnormal stress test Other nonspecific abnormal cardiovascular system function study Cardiomyopathy, unspecified type documented in this encounter Admitting Diagnoses Diagnosis CAD (coronary artery disease) Coronary atherosclerosis of unspecified type of vessel, kotlik or graft documented in this encounter Administered Medications Inactive Administered Medications - up to 3 most recent administrations Medication Order MAR Action Action Date Dose Rate Site alum-mag hydroxide-simeth (Maalox) (40 mg-40 mg-4 mg/mL) oral liquid ONCE PRN, Starting on Mon05/17/22 at 1251, Until Mon05/17/22 at 1653, Intra-Operative (Intra-Procedure), Routine Given 05/17/2022 12:51 PM EST 30 mLs aspirin EC tablet 81 mg 81 mg, Oral, DAILY, First dose on Mon05/18/22 at 0900, Until Discontinued, Recovery (Recovery-Hospital Unit), Routine clopidogreL (Plavix) tablet 75 mg 75 mg, Oral, DAILY, First dose on Mon05/18/22 at 0900, Until Discontinued, Recovery (Recovery-Hospital Unit), Routine clopidogreL (Plavix) tablet ONCE PRN, Starting on Mon05/17/22 at 1233, Until Mon05/17/22 at 1653, Intra-Operative (Intra-Procedure), Routine Given 05/17/2022 12:33 PM EST 600 mg fentaNYL (pf) (50 mcg/mL) multi-dose injection ONCE PRN, Starting on Mon05/17/22 at 1209, Until Mon05/17/22 at 1653, Intra-Operative (Intra-Procedure), Routine Given 05/17/2022 12:09 PM EST 25 mcg heparin (porcine) (1,000 units/mL) injection ONCE PRN, Starting on Mon05/17/22 at 1211, Until Mon05/17/22 at 1653, Intra-Operative (Intra-Procedure), Routine Given 05/17/2022 12:11 PM EST 5,000 Units iohexoL (Omnipaque) (350 mg/mL) solution ONCE PRN, Starting on Mon05/17/22 at 1252, Until Mon05/17/22 at 1653, Intra-Operative (Intra-Procedure), Routine Given 05/17/2022 12:52 PM EST 80 mLs midazolam (pf) (Versed) (1 mg/mL) multi-dose injection ONCE PRN, Starting on Mon05/17/22 at 1209, Until Mon05/17/22 at 1653, Intra-Operative (Intra-Procedure), Routine Given 05/17/2022 12:09 PM EST 1 mg nitroGLYcerin 100 mcg/mL intracoronary dilution ONCE PRN, Starting on Mon05/17/22 at 1209, Until Mon05/17/22 at 1653, Intra-Operative (Intra-Procedure), Routine Given 05/17/2022 12:42 PM EST 150 mcg Given 05/17/2022 12:09 PM EST 150 mcg sodium chloride 0.9% infusion 100 mL/hr, Intravenous, CONTINUOUS, Starting on Mon05/17/22 at 1330, Until Mon05/17/22 at 1729, Recovery (Recovery-Hospital Unit) New Bag 05/17/2022 1:15 PM EST 100 mL/hr 100 mL /hr verapamiL (Isoptin) (2.5 mg/mL) injection ONCE PRN, Starting on Mon05/17/22 at 1209, Until Mon05/17/22 at 1653, Administer over 2 Minutes, Intra-Operative (Intra-Procedure) Given 05/17/2022 12:09 PM EST 2.5 mg documented in this encounter Active and Recently [...] 1315 (New Bag - Prov ider: Rene uBrdick RN) PRN Medication Order 05/15/2022 05/16/2022 05/17/2022 alum-mag hydroxide-simeth (Maalox) (40 mg-40 mg-4 mg/mL) oral liquid (CANCELED) ONCE PRN, Starting on Mon05/17/22 at 1251, Until Mon05/17/22 at 1653, Intra-Operative (Intra-Procedure), Routine 1251 (Given - Provid er: Alexandrea Lincoln RN) clopidogreL (Plavix) tablet (CANCELED) ONCE PRN, Starting on Mon05/17/22 at 1233, Until Tu05/17/22 at 1653, Intra-Operative (Intra-Procedure), Routine 1233 (Given - Provid er: Alexandrea Lincoln RN) fentaNYL (pf) (50 mcg/mL) multi-dose injection (CANCELED) ONCE PRN, Starting on Mon05/17/22 at 1209, Until 05/17/22 at 1653, Intra-Operative (Intra-Procedure), Routine 1209 (Given - Provid er: Alexandrea Lincoln RN) heparin (porcine) (1,000 units/mL) injection (CANCELED) ONCE PRN, Starting on Mon05/17/22 at 1211, Until Mon05/17/22 at 1653, Intra-Operative (Intra-Procedure), Routine 1211 (Given - Provid er: Alexandrea Lincoln RN) iohexoL (Omnipaque) (350 mg/mL) solution (CANCELED) ONCE PRN, Starting on Mon05/17/22 at 1252, Until Mon05/17/22 at 1653, Intra-Operative (Intra-Procedure), Routine 1252 (Given [...] Starting on e 05/17/22 at 1209, Until Tu05/17/22 at 1653, Administer over 2 Minutes, Intra-Operative (Intra-Procedure) 1209 (Given - Provid er: Alexandrea Lincoln RN) documented in this encounter Care Teams Territory Business Manager Relationship Specialty Start Date End Date Shirley Yu MD [address] [place] [address] PCP - General 11/19/14 documented as of this encounter
--- OUTSIDE RECORDS SUMMARY | 2023-12-13 18:22 | XMS_ITS | Encounter Summary ---
[place] [address] Care Team Providers Care Internal Audit Senior Manager Name Role Phone Shirley Yu MD Primary Care Provider [phone] Encounter Details Date Type Department Care Team (Late st Contact Info) Description 06/14/2023 [place] [address] Danielle Ackerman MD [facility] [place] [address] Social History Tobacco Use Types Packs/Day Years [...] encounter Miscellaneous Notes * Telephone Encounter - Devonte Griggs - 06/14/2023 2:37 PM EST Pt. Called and advised she was a patient of Dr. Dominguez and having issues and would like to be seen, and needs her eye records fax to [facility] [place], [place]. Advised Dr. Dominguez had left [facility]. Rev'd with BB, patient has not been seen at our eye clinic since 2020 - has not been having injections or other eye care she would be classified a new patient and would need to be referred outside of[facility]. Advised I would fax the last office note to [facility], but if further treatment was needed they would need to refer her outside of [facility] as we are not currently taking new patients. Faxed 12/2022 note as requested. documented in this encounter Plan of Treatment Upcoming Encounters Date Type Department Care Team (Late st Contact Info) Description 12/19/2023 1:00 PM EDT Tech Visit Vascular Lab at [place] [phone] Marguerite Macias 12/19/2023 3:00 PM EDT Office [place] [address] Gardenia Golden APRN [facility] [place] [address] 01/29/2024 1:[address] [place] [address] César Escobar MD [facility] [place] [address] 01/29/2024 2:30 PM EDT Office [place] [address] César Escobar MD [facility] [place] [address] documented as of this encounter Visit Diagnoses Not on filedocumented in this encounter Care Teams Internal Audit Senior Manager Relationship Specialty Start Date End Date Shirley Yu MD [address] [place] [address] PCP - General 11/19/14 documented as of this encounter
--- OUTSIDE RECORDS SUMMARY | 2023-12-13 18:22 | XMS_ITS | Encounter Summary ---
[place] [address] Care Team Providers Care Bar Welder Name Role Phone Shirley Yu MD Primary Care Provider Reason for Referral * Diagnostic Test (Routine) - New Request Specialty Diagnoses / Procedures Referred By Dominik mcleod Referred To Contact Diagnoses Hypertension, unspecified type Procedures Duplex Study Renal Arteries, Bilat Nikhil Jade MD [address] [place] [address] [facility] [address] [place] [phone] Referral ID Status Reason Start Date Expiration Date Visits Requested Visits Authorized [id number] New Request Specialty Service Requested 3 03/21/2024 1 1 Encounter Details Date Type Department Care Team (Latest Contact Info) Description 03/22/2023 Transcribe Orders [facility] Incoming Referrals [phone] Nikhil Jade MD [address] [place] [address] Hypertension, unspecified type (Primary Dx) Social History Tobacco Use Types [...] PM EDT Tech Visit Vascular Lab at [place] [phone] Marguerite Macias 12/19/2023 3:00 PM EDT Office [place] [address] Gardenia Golden APRN [facility] [place] [address] 01/29/2024 1:[address] Scan at [place] [phone] César Escobar MD [facility] [place] [address] 01/29/2024 2:30 PM EDT Office Visit Thoracic Surgery at [place] [phone] César Escobar MD [facility] [place] [address] documented as of this encounter Visit Diagnoses Diagnosis Hypertension, unspecified type- Primary documented in this encounter Care Teams Bar Welder Relationship Specialty Start Date End Date Shirley Yu MD [address] [place] [address] PCP - General 11/19/14 documented as of this encounter
--- OUTSIDE RECORDS SUMMARY | 2023-12-13 18:22 | XMS_ITS | Encounter Summary ---
Author Organization [facility] [place] [address] Care Team Providers Care Hostess Host Name Role Phone Shirley Yu MD Primary Care Provider [phone] Reason for Referral * Diagnostic Test (Routine) - Closed Specialty Diagnoses / Procedures Referred By Dominik mcleod Referred To Contact Radiology Diagnoses Multiple lung nodules Pulmonary granuloma Hx of smoking Procedures CT Chest wo Contrast (Generic) César Escobar MD [facility] [place] [address] [facility] [place] [address] Referral ID Status Reason Start Date Expiration Date V isits Requested Visits Authorized [id number] Closed Specialty Service Requested 03/21/2022 09/20/2023 1 1 Encounter Details Date Type Department Care Team (Late st Contact Info) Description 03/21/2022 Orders Only [place] [address] Kayla Poe, RN Multiple lung nodules; Pulmonary granuloma; Hx of smoking Social History Tobacco Use Types Packs/Day Years [...] EDT Tech Visit [place] [phone] Marguerite Macias 12/19/2023 3:00 PM EDT Office [place] [address] Gardenia Golden APRN [facility] [place] [address] 01/29/2024 1:[address] [place] [address] César Escobar MD [facility] DR [place] [address] 01/29/2024 2:30 PM EDT Office [place] [address] César Escobar MD [facility] DR [place] [address] documented as of this encounter Results * CT Chest wo [...] who have questions please contact the health direct care counselor that requested your imaging first. ? Electronically signed by: Clark Burgos MD, [facility] ??([phone]), at 01/17/2023 10:05 AM Narrative 01/17/2023 10:05 AM EDT EXAMINATION: CT [...] patients who have questions please contactthe health direct care counselor that requested your imaging first. Electronically signed by: Clark Burgos MD, [facility]([phone]), at 01/17/2023 10:05 AM César Escobar MD IMG CT ORDERABLE S documented in this encounter Visit Diagnoses Diagnosis Multiple lung nodules Other nonspecific abnormal finding of lung field Pulmonary granuloma Postinflammatory pulmonary fibrosis Hx of smoking Personal history of tobacco use, presenting hazards to health Multiple lung nodules Other nonspecific abnormal finding of lung field Pulmonary granuloma Postinflammatory pulmonary fibrosis Hx of smoking Personal history of tobacco use, presenting hazards to health documented in this encounter Care Teams Hostess Host Relationship Specialty Start Date End Date Shirley Yu MD [address] [place] [address] PCP - General 11/19/14 documented as of this encounter
--- OUTSIDE RECORDS SUMMARY | 2023-12-13 18:23 | XMS_ITS | Encounter Summary ---
Author Organization Formerly [facility] [place] [address] Care Team Providers Care Body Design Checker Name Role Phone Shirley Yu MD Primary Care Provider [phone] Encounter Details Date Type Department Care Team (Late st Contact Info) Description 10/24/2019 1:00 PM EDT Office [place] [address] Jaxon Fontaine MD [facility] [place] [address] PVD (peripheral vascular disease); S/P bypass graft of extremity; Bilateral carotid artery stenosis Social History Tobacco [...] Sign Reading Time Taken Comments Blood Pressure 144/63 10/24/2019 1:05 PM EDT Pulse 66 10/24/2019 1:04 PM EDT Temperature - - Respiratory Rate - - Oxygen Saturation - - Inhaled Oxygen Concentration - - Weight - - Height - - Body Mass Index - - documented in this encounter Progress Notes * Jaxon Fontaine MD - 10/24/2019 1:00 PM EDT Images from the original note were not included. Vascular Surgery Clinic Visit October 24, 2019 CC: Patient is a 59 y.o. female who is here for follow up of carotid stenosis and PVD. 2000 L CEA (Dr Fong) 2004 R CEA (Dr Avendano) ?? 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 04/27/18 R FASHION DESIGN PROFESSOR/proximal graft and distal graft/pop SCANNER SUPERVISOR (6mm and 5mm balloons) 02/04/19 Redo R femoral endarterectomy/profundaplasty, revision of proximal vein graft c/b wound breakdown requiring I&D ?? Presents for scheduled follow up visit. Right groin wound has healed well. Doing well at home now without any claudication, rest pain or non-healing wounds. Denies any symptoms in LLE. ?? No symptoms concerning for stroke, TIA, or amaurosis fugax. ?? ROS is negative for history of CAD, WA, CP, or SOB. Has DM, on??insulin pump. Is a past smoker, having quit in??2015. ?? PMH:??HTN, HLD, DM, hyperthyroidism, RLL wedge resection for pulmonary granuloma 06/25,??GINGER/BSO '02 All:??sulfa, PCN Meds include:??asa, pradaxa, coreg, losartan, zocor, protonix, synthroid, insulin, neurontin, celexa Tob:??quit 2014 FHx:??neg for coagulopathy ?? Physical Exam: On exam, she is in NAD, RRR, CTA B, Abd soft/NT/ND. Right groin incision healed. No open lesions on either foot. Neuro non-focal. Labs: Equipment Service Technician (03/01/19): 1.83 Lipids (10/14/14): TC 160, HDL 78 HbA1C (01/25/18): 8.4 Imaging studies: I have personally reviewed the following imaging studies. Carotid duplex (10/24/19): R <15%/ L 50-79% RLE graft duplex (10/24/19): Findings: Right Fem-Pop AK SEGMENT ? PSV (cm/s) ??EDV ??Location ? Right Inflow Artery (Graft) ?305 ?0 ??Right Proximal Common Femoral ?? Inflow Anastomosis, Right ?152 ?0 ? Right Proximal Graft ? 123 ?0 ? Right High Thigh (Graft) ?83 ?0 ? Right Mid Graft ? 66 ?0 ? Right Mid Thigh (Graft) ? 53 ?0 ? Right Low Thigh (Graft) ? 72 ?0 ? Right Distal Graft ? 75 ?3 ? Outflow Anastomosis, Right ?92 ?0 ? Right Outflow Artery (Graft) ? 188 ?0 ??Popliteal, Mid Right ? Interpretation: ?? RIGHT: Patent common femoral artery to above knee popliteal artery bypass graft with elevated velocities (305 cm/sec) at the inflow proximal common femoral artery consistent with >50% stenosis. This is a new finding compared to previous exam (04/01/2019). Velocities at the outflow popliteal artery are slightly elevated, as seen on previous exam (179 cm/sec; 04/01/2019).The remainder of the bypass graft is widely patent with no evidence of stenosis. SHEFALI (10/24/19): 1.03/0.59 A/P: 59yo female s/p B CEAs with known asymptomatic recurrent moderate left carotid stenosis and PVD s/p multiple interventions as above, most recently s/p redo R femoral endarterectomy and vein graft revision. New elevated PSV in the right FASHION DESIGN PROFESSOR without associated symptoms or change in SHEFALI. Will follow for now. -con't asa, pradaxa, and statin -con't smoking cessation -regular exercise -f/u 3mo with RLE graft duplex and SHEFALI -repeat carotid duplex in 1 year Jaxon Fontaine MD documented in this encounter Plan of Treatment Upcoming Encounters Date Type Department Care Team (Late st Contact Info) Description 12/19/2023 1:00 PM EDT Tech [place] [address] Marguerite Macias 12/19/2023 3:00 PM EDT Office [place] [address] Gardenia Golden APRN [facility] [place] [address] 01/29/2024 1:[address] [place] [address] César Escobar MD [facility] [place] [address] 01/29/2024 2:30 PM EDT Office [place] [address] César Escobar MD [facility] [place] [address] documented as of this encounter Results * Unilat Bypass Graft Assess (02/26/2020 10:33 AM EST) VB Text Report Department: Vascular Surgery Lab Patient: [id number] (JENNIFER SNYDER) CPT: 21564 ICD10: I73.9;Z95.828 Referring Physician: JAXON FONTAINE MD ?? Phone: Indications: Rt FASHION DESIGN PROFESSOR- AK Pop BPG, ? patency/ stenosis ICD10 Diagnosis Code: I73.9, Z95.828 Findings: Right Fem-Pop AK SEGMENT ? PSV (cm/s) ??EDV ??Location ? Right Inflow Artery (Graft) ?203 ?4 ??Common Femoral, Right ? Inflow Anastomosis, Right ?140 ?3 ? Right Proximal Graft ?94 ?0 ? Right High Thigh (Graft) ?84 ?0 ? Right Mid Graft ? 59 ?0 ? Right Mid Thigh (Graft) ? 59 ?0 ? Right Low Thigh (Graft) ? 66 ?0 ? Right Distal Graft ?81 ?0 ? Outflow Anastomosis, Right ? 112 ?0 ? Right Outflow Artery (Graft) ? 102 ?0 ??Popliteal, Above Knee Right ?? Interpretation : RIGHT: Patent common femoral to above knee popliteal artery bypass graft. Elevated velocities at the inflow artery just above threshold for a >50% stenosis (threshold >200 cm/s). Could not replicate higher velocities seen in previous exam ( PSV 305 cm/s in the inflow artery). The remainder of the bypass graft is widely patent with no evidence of stenosis. Electronically Signed by: JAYLEN MAGNAA on 2020-02-26 01:06:42 PM VASCUBASE VB Text Report End of Report VASCUBASE 02/26/2020 10:3 3 AM EST Jaxon Fontaine MD VASCULAR ORDERABLES VASCUBASE * SHEFALI, legs, multiple levels (02/26/2020 10:33 AM EST) VB Text Report Department: Vascular Surgery Lab Patient: [id number] (JENNIFER SNYDER) CPT: 27947 ICD10: I73.9;Z95.828 Referring Physician: JAXON FONTAINE MD ?? Phone: Indications: RT fem-pop BPG, hx PVD, ? change in SHEFALI Diabetes mellitus: yes ICD10 Diagnosis Code: I73.9, Z95.828 Findings: Right ?Pressure (mm Hg) ?? SHEFALI ??Waveform ? TBI ?? Brachial Artery ?199 ? Dorsalis Pedis (Ankle) Artery ?188 ? 0.94 ??Bi-Triphasic ? Posterior Tibial (Ankle) Artery ??201 ? 1.01 ??Triphasic ? Great Toe ?131 ? 0.66 ?? Left ? Pressure (mm Hg) ?? SHEFALI ??Waveform ?TBI ?? Brachial Artery ?192 ? Dorsalis Pedis (Ankle) Artery ?107 ? 0.54 ??[place]-Biphasic ? Posterior Tibial (Ankle) Artery ??115 ? 0.58 ??[place]-Biphasic ? Great Toe ?67 ? 0.34 ?? Interpretation: RIGHT: No significant lower extremity arterial occlusive disease to the distal calf. Toe-brachial index substantially lower than ankle-brachial index indicates presence of mild arterial occlusive disease in the foot. No significant change compared to previous exam. LEFT: Moderate lower extremity arterial occlusive disease to the distal calf. Toe-brachial index substantially lower than ankle-brachial index indicates presence of Moderately severe arterial occlusive disease in the foot. No significant change compared to previous exam. Previous ABIs with change from previous value: Date ?RIGHT DP ?? RIGHT PT ?? RT GR TOE ??RT Sec TOE ??0.93 ? 0.93 ? ---- ? ---- ??0.88(-.05) 0.96(+.03) 0.62 ? ---- ??0.97(+.09) 0.97(+.01) 0.65(+.03) ---- ??0.91(-.06) 1.01(+.04) 0.72(+.07) ---- ??0.93(+.02) 0.96(-.05) 0.61(-.11) ---- ??0.86(-.07) 0.93(-.03) 0.68(+.07) ---- ??0.59(-.27) 0.75(-.18) 0.58(-.10) ---- ??0.64(+.05) 0.59(-.16) 0.48(-.10) ---- ??0.63(-.01) 0.65(+.06) 0.34(-.14) ---- ??0.58(-.05) 0.65( .00) 0.43(+.09) ---- ??0.74(+.16) 0.73(+.08) 0.48(+.05) ---- ??0.70(-.04) 0.72(-.01) 0.49(+.01) ---- ??0.62(-.08) 0.80(+.08) 0.53(+.04) ---- ??0.49(-.13) 0.56(-.24) 0.35(-.18) ---- ??0.89(+.40) 0.95(+.39) ---- ? ---- ??0.88(-.01) 0.94(-.01) 0.63 ? ---- ??0.89(+.01) 0.90(-.04) 0.56(-.07) ---- ??1.03(+.14) 0.99(+.09) 0.58(+.02) ---- ??0.98(-.05) 1.04(+.05) 0.62(+.04) ---- ??0.98( .00) 1.03(-.01) 0.62( .00) ---- Current ? 0.94(-.04) 1.01(-.02) 0.66(+.04) ---- Date ?LEFT DP ?LEFT PT ?LT GR TOE LT Sec TOE ??0.64 ? 0.66 ? ---- ? ---- ??0.44(-.20) 0.52(-.14) 0.38 ? ---- ??0.58(+.14) 0.62(+.10) 0.42(+.04) ---- ??0.64(+.06) 0.69(+.07) 0.46(+.04) ---- ??0.58(-.06) 0.61(-.08) 0.37(-.09) ---- ??0.55(-.03) 0.63(+.02) 0.38(+.01) ---- ??0.24(-.31) 0.29(-.34) 0.15(-.23) ---- ??0.45(+.21) 0.46(+.17) 0.27(+.12) ---- ??0.42(-.03) 0.44(-.02) 0.22(-.05) ---- ??0.46(+.04) 0.48(+.04) 0.27(+.05) ---- ??0.53(+.07) 0.54(+.06) 0.38(+.11) ---- ??0.52(-.01) 0.52(-.02) 0.37(-.01) ---- ??0.57(+.05) 0.57(+.05) 0.34(-.03) ---- ??0.46(-.11) 0.46(-.11) 0.31(-.03) ---- ??0.62(+.16) 0.62(+.16) ---- ? ---- ??0.59(-.03) 0.59(-.03) 0.40 ? ---- ??0.55(-.04) 0.62(+.03) 0.37(-.03) ---- ??0.53(-.02) 0.54(-.08) 0.36(-.01) ---- ??0.56(+.03) 0.60(+.06) 0.36( .00) ---- ??0.54(-.02) 0.59(-.01) 0.30(-.06) ---- Current ? 0.54( .00) 0.58(-.01) 0.34(+.04) ---- Electronically Signed by: JAYLEN MAGANA on 2020-02-26 01:09:43 PM VASCUBASE VB Text Report End of Report VASCUBASE 02/26/2020 10:3 3 AM EST Jaxon Fontaine MD VASCULAR ORDERABLES VASCUBASE documented in this encounter Visit Diagnoses Diagnosis PVD (peripheral vascular disease) Peripheral vascular disease, unspecified S/P bypass graft of extremity Other postprocedural status Bilateral carotid artery stenosis Occlusion and stenosis of multiple and bilateral precerebral arteries without mention of cerebral infarction documented in this encounter Care Teams Body Design Checker Relationship Specialty Start Date End Date Shirley Yu MD [address] [place] [address] PCP - General 11/19/14 documented as of this encounter
--- OUTSIDE RECORDS SUMMARY | 2023-12-13 18:23 | XMS_ITS | Encounter Summary ---
[place] [address] Care Team Providers Care Recycling Director Name Role Phone Shirley Yu MD Primary Care Provider [phone] Reason for Referral * Consultation (Routine) - Closed Specialty Diagnoses / Procedures Referred By Dominik mcleod Referred To Contact Endocrinology Diagnoses Type 1 diabetes mellitus with retinopathy, macular edema presence unspecified, unspecified laterality, unspecified retinopathy severity Shirley Yu MD [address] [place] [address] [facility] Endocr[facility]ology [address] [place] [phone] Referral ID Status Reason Start Date Expiration Date V isits Requested Visits Authorized [id number] Closed Consult, Test & Treat PCP Updated and/or Approved 10/25/2021 10/25/2022 12 12 Encounter Details Date Type Department Care Team (Latest Contact Info) Description 10/25/2021 Transcribe Orders eDH Incoming Referrals [phone] Shirley Yu MD [address] [place], [place] [id number] Type 1 diabetes mellitus with retinopathy, macular edema presence unspecified, unspecified laterality, unspecified retinopathy severity Social History Tobacco Use Types Packs/Day Years [...] PM EDT Tech [place] [phone] Marguerite Macias 12/19/2023 3:00 PM EDT Office Visit Vascular Surgery at [place] [phone] Gardenia Golden, [facility] [place] [address] 01/29/2024 1:[address] Scan at [place] [phone] César Escobar MD [facility] [place] [address] 01/29/2024 2:30 PM EDT Office [place] [phone] César Escobar MD [facility] [place] [address] Scheduled Referrals Name Type Priority Associated Diagnoses Order Schedule Referral to Endocrinology Outpatient Referral Routine Type 1 diabetes mellitus with retinopathy, macular edema presence unspecified, unspecified laterality, unspecified retinopathy severity Ordered: 10/25/2021 documented as of this encounter Visit Diagnoses Diagnosis Type 1 diabetes mellitus with retinopathy, macular edema presence unspecified, unspecified laterality, unspecified retinopathy severity documented in this encounter Care Teams Recycling Director Relationship Specialty Start Date End Date Shirley Yu MD [address] [place] [address] PCP - General 11/19/14 documented as of this encounter
--- OUTSIDE RECORDS SUMMARY | 2023-12-13 18:23 | XMS_ITS | Encounter Summary ---
[place] [address] Care Team Providers Care Maternity Nurse Name Role Phone Shirley Yu MD Primary Care Provider [phone] Encounter Details Date Type Department Care Team (Late st Contact Info) Description 08/14/2020 12:30 PM EDT Tech [place] [phone] [address] [place] PVD (peripheral vascular disease); S/P bypass graft [...] PM EDT Tech [place] [phone] Marguerite Macias 12/19/2023 3:00 PM EDT Office [place] [address] Gardenia Golden APRN [facility] [place] [address] 01/29/2024 1:[address] [place] [address] César Escobar MD [facility] [place] [address] 01/29/2024 2:30 PM EDT Office [place] [address] César Escobar MD [facility] [place] [address] documented as of this encounter Procedures Procedure Name Priority Date/Time Associated Diagnosis Comments UNILATERAL BYPASS GRAFT ASSESS Routine 08/14/2020 12:36 PM EDT PVD (peripheral vascular disease) S/P bypass graft of extremity SHEFALI, LEGS, MULTIPLE LEVELS Routine 08/14/2020 12:36 PM EDT PVD (peripheral vascular disease) S/P bypass graft of extremity CAROTID DUPLEX, BILATERAL Routine 08/14/2020 12:36 PM EDT Bilateral carotid artery stenosis documented in this encounter Results * Carotid Duplex, Bilateral (08/14/2020 12:36 PM EDT) VB Text Report Department: Vascular Surgery Lab Patient: [id number] (JENNIFER SNYDER) CPT: 98158 ICD10: I65.23 Referring Physician: JAXON FONTAINE MD ?? Phone: Indications: ??Hx bilateral CEA ICD10 Diagnosis Code: I65.23 Findings: ICA Proximal, Right ? PSV (cm/s): 80 ? EDV (cm/s): 12 ? ICA/CCA: 1.0 ? Plaque Structure: Echogenic ? Plaque Surface: Irregular ? %Stenosis: <15% ICA Distal, Right ? PSV (cm/s): 103 ? EDV (cm/s): 33 ? ICA/CCA: 1.2 CCA Distal, Right ? PSV (cm/s): 83 ? EDV (cm/s): 15 ? %Stenosis: Minimal CCA Proximal, Right ? PSV (cm/s): 116 ? EDV (cm/s): 14 External Carotid Artery, Right ? PSV (cm/s): 113 ? EDV (cm/s): 10 ? %Stenosis: <50% Vertebral, Right ? PSV (cm/s): 78 ? EDV (cm/s): 20 ? Direction of Flow: Antegrade ICA Proximal, Left ? PSV (cm/s): 348 ? EDV (cm/s): 90 ? ICA/CCA: 3.9 ? Plaque Structure: Echogenic ? Plaque Surface: Irregular ? %Stenosis: 50-79% ICA Distal, Left ? PSV (cm/s): 97 ? EDV (cm/s): 44 ? ICA/CCA: 1.1 CCA Distal, Left ? PSV (cm/s): 90 ? EDV (cm/s): 17 ? %Stenosis: <50% CCA Proximal, Left ? PSV (cm/s): 90 ? EDV (cm/s): 14 External Carotid Artery, Left ? PSV (cm/s): 239 ? EDV (cm/s): 16 ? %Stenosis: >50% Vertebral, Left ? PSV (cm/s): 73 ? EDV (cm/s): 20 ? Direction of Flow: Antegrade Interpretation: RIGHT: There is irregular calcified plaque in the proximal internal carotid artery causing <15% stenosis when compared to the more distal internal carotid artery. No significant change from previous exam. The bifurcation level is in the mid neck. LEFT: A focal irregular plaque in present in the distal common carotid artery causing <50% stenosis. There is bulky irregular calcified plaque in the proximal internal carotid artery causing 50-79% stenosis when compared to the more distal internal carotid artery. No significant change from previous exam. The bifurcation level is in [...] 1.30 ? 50-79% ? 384 ?? 3.70 Current Exam ? <15% ? 80 ?1.20 ? 50-79% ? 348 ?? 3.90 Electronically Signed by: JAYLEN MAGANA on 2020-08-17 05:16:14 PM VASCUBASE VB Text Report End of Report VASCUBASE 08/14/2020 12:3 6 PM EDT Jaxon Fontaine MD VASCULAR ORDERABLES VASCUBASE * SHEFALI, legs, multiple levels (08/14/2020 12:36 PM EDT) VB Text Report Department: Vascular Surgery Lab Patient: [id number] (JENNIFER SNYDER) CPT: 17937 ICD10: I73.9;Z95.828;I 77.1 Referring Physician: JAXON FONTAINE MD ?? 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 change in ABIs Diabetes mellitus: Yes ICD10 Diagnosis Code: I73.9, Z95.828 Findings: Right ?Pressure (mm Hg) ?? SHEFALI ??Waveform ? TBI ?? Brachial Artery ?157 ? Dorsalis Pedis (Ankle) Artery ?159 ? 1.01 ??Biphasic ? Posterior Tibial (Ankle) Artery ??159 ? 1.01 ??Biphasic-Rev ? Great Toe ?105 ? 0.67 ?? Left ? Pressure (mm Hg) ?? SHEFALI ??Waveform ?TBI ?? Dorsalis Pedis (Ankle) Artery ?75 ?0.48 ??[place]-Biphasic ? Posterior Tibial (Ankle) Artery ??80 ?0.51 ??[place]-Biphasic ? Great Toe ?51 ? 0.32 ?? Interpretation: RIGHT: No significant lower extremity arterial occlusive disease to the level of the distal calf. There is mild disease at the foot/toe level. No significant change from previous exam. LEFT: Moderate to moderately severe lower extremity arterial occlusive disease. No significant change from previous exam. Previous ABIs with change from previous value: Date ?RIGHT DP ?? RIGHT PT ?? RT GR TOE ??RT Sec TOE ??0.62 ? 0.80 ? 0.53 ? ---- ??0.49(-.13) 0.56(-.24) 0.35(-.18) ---- ??0.89(+.40) 0.95(+.39) ---- ? ---- ??0.88(-.01) 0.94(-.01) 0.63 ? ---- ??0.89(+.01) 0.90(-.04) 0.56(-.07) ---- ??1.03(+.14) 0.99(+.09) 0.58(+.02) ---- ??0.98(-.05) 1.04(+.05) 0.62(+.04) ---- ??0.98( .00) 1.03(-.01) 0.62( .00) ---- ??0.94(-.04) 1.01(-.02) 0.66(+.04) ---- Current ? 1.01(+.07) 1.01( .00) 0.67(+.01) ---- Date ?LEFT DP ?LEFT PT ?LT GR TOE LT Sec TOE ??0.57 ? 0.57 ? 0.34 ? ---- ??0.46(-.11) 0.46(-.11) 0.31(-.03) ---- ??0.62(+.16) 0.62(+.16) ---- ? ---- ??0.59(-.03) 0.59(-.03) 0.40 ? ---- ??0.55(-.04) 0.62(+.03) 0.37(-.03) ---- ??0.53(-.02) 0.54(-.08) 0.36(-.01) ---- ??0.56(+.03) 0.60(+.06) 0.36( .00) ---- ??0.54(-.02) 0.59(-.01) 0.30(-.06) ---- ??0.54( .00) 0.58(-.01) 0.34(+.04) ---- Current ? 0.48(-.06) 0.51(-.07) 0.32(-.02) ---- More studies have been completed than are shown. Electronically Signed by: JAYLEN MAGANA on 2020-08-17 10:15:58 AM VASCUBASE VB Text Report End of Report VASCUBASE 08/14/2020 12:3 6 PM EDT Jaxon Fontaine MD VASCULAR ORDERABLES VASCUBASE * Unilat Bypass Graft Assess (08/14/2020 12:36 PM EDT) VB Text Report Department: Vascular Surgery Lab Patient: [id number] (JENNIFER SNYDER) CPT: 04053 ICD10: Z95.828;I77.1; I73.9 Referring Physician: JAXON FONTAINE MD ?? Phone: Indications: ??F/U R fem-ak pop bypass graft ICD10 Diagnosis Code: Z95.828, I73.9 Findings: Right Fem-Pop AK SEGMENT ? PSV (cm/s) ??EDV ??Location ? Right Inflow Artery (Graft) ?258 ?? 15 ??Common Femoral, Right ? Inflow Anastomosis, Right ?131 ?9 ??Common Femoral, Right ? Right Proximal Graft ?94 ?0 ? Right High Thigh (Graft) ?79 ?0 ? Right Mid Graft ? 66 ?0 ? Right Low Thigh (Graft) ? 72 ?9 ? Right Distal Graft ?64 ?4 ? Outflow Anastomosis, Right ?88 ?3 ??Popliteal, Above Knee Right ?? Right Outflow Artery (Graft) ? 105 ?5 ??Popliteal, Above Knee Right ?? Interpretation : RIGHT: Patent common femoral artery inflow and common femoral to above knee popliteal artery bypass graft with mild to moderately elevated velocities in the common femoral artery inflow (PSV 258 cm/s; previously 203 cm/s). No stenosis identified within the body of the graft. Electronically Signed by: JAYLEN MAGANA on 2020-08-17 04:39:29 PM VASCUBASE VB Text Report End of Report VASCUBASE 08/14/2020 12:3 6 PM EDT Jaxon Fontaine MD VASCULAR ORDERABLES VASCUBASE documented in this encounter Visit Diagnoses Diagnosis PVD (peripheral vascular disease) Peripheral vascular disease, unspecified S/P bypass graft of extremity Other postprocedural status Bilateral carotid artery stenosis Occlusion and stenosis of multiple and bilateral precerebral arteries without mention of cerebral infarction documented in this encounter Care Teams Maternity Nurse Relationship Specialty Start Date End Date Shirley Yu MD [address] [place] [address] PCP - General 11/19/14 documented as of this encounter
--- OUTSIDE RECORDS SUMMARY | 2023-12-13 18:23 | XMS_ITS | Encounter Summary ---
Author Organization [facility] [address] Care Team Providers Care Emergency Room Doctor Name Role Phone Shirley Yu MD Primary Care Provider [phone] Encounter Details Date Type Department Care Team (Late st Contact Info) Description 12/20/2021 4:00 PM EDT Office Visit [place] [address] Céasr Escobar MD [facility] [place] [address] Multiple lung nodules Social History Tobacco Use [...] Sign Reading Time Taken Comments Blood Pressure 179/58 12/20/2021 3:44 PM EDT Pulse 65 12/20/2021 3:44 PM EDT Temperature 36.4 ??C (97.5 ??F) 12/20/2021 3:44 PM ED T Respiratory Rate 20 12/20/2021 3:44 PM EDT Oxygen Saturation 99% 12/20/2021 3:44 PM EDT Inhaled Oxygen Concentration - - Weight 76.1 kg (167 lb 12.3 oz) 12/20/2021 3:44 PM EDT Height - - Body Mass Index 26.84 11/23/2020 3:11 PM EDT documented in this encounter Progress Notes * Clark Santos PA - 12/20/2021 4:00 PM EDT Thoracic Surgery Outpatient Consultation Note MD Clark Olivares PA-C [place] [id number] Reason for Visit: Follow up for surveillancd HPI: Jennifer Snyder is a 61 y.o. female who is s/p bronchoscopy and Right VATS wedge resections on 06/21/2018 for lung nodules. She was last seen on 11/23/2020, at which time she was doing well and imaging demonstrated smaller, less conspicuous and partiall resolved spiculated and round bilateral multi lobar pulmonary nodules. Since then, patient has been feeling well overall. She reports she has beenworking on weight loss and has been staying very active. She denies interval ED visits, hospitalizations or procedures. She continues to abstain from smoking. Patient denies fevers, chills, sweats, unintentional weight loss, chest pain, palpitations, SOB, difficulty breathing, cough, productive cough, hemoptysis, nausea, vomiting, abdominal pain, constipation, diarrhea, edema. Physical Exam: Patient Vitals for the past 24 hrs: Temp Pulse Resp BP SpO2 12/20/21 1544 36.4 ??C (97.5 ??F) 65 20 179/58 99 % Gen: NAD, pleasant, sitting up in chair HEENT: normocephalic, atraumatic, EOMI, sclerae anicteric Neck: supple, trachea midline Card: RRR, no M/R/G appreciated Pulm: CTAB, no wheeze/ronchi/rales appreciated, non-labored breathing on RA Abd: soft, NT, ND, BS+ Ext: warm, dry, no edema Neuro: A&Ox3, nonfocal, conversant Imaging: CT Chest (12/20/2021): Final read pending per radiology. On our review, multiple bilateral lung nodules appear stable or possibly slightly smaller in size. Some coronary calcification noted. Assessment: Jennifer Snyder is a 61 y.o. female who is s/p bronchoscopy and Right VATS wedge resections on 06/21/2018 for lung nodules. Patient is currently feeling well overall, and imaging demonstrates stable or possibly slightly smaller lung nodules. Plan: 1. Follow up final read per radiology, tentative plan will be to RTC in [address] Chest I- forcontinued surveillance given smoking history 2. Could consider stress test given extensive vascular history and coronary calcification noted on CT, patient will follow up with PCP regarding this 3. Recommend minimum of 30 minutes of exercise daily 4. Please call with any questions or concerns at any time GENTRY Brown 12/20/2021 Thoracic Surgery [facility] * César Escobar MD - 12/20/2021 4:00 PM EDT Thoracic surgery follow-up visit I saw and examined Ms. Snyder with GENTRY Espinoza, and agree with his findings, assessment and plan. In brief: Chief complaint: Surveillance of lung nodules History of present illness: Ms. Snyder is a 61-year-old woman who underwent thoracoscopic biopsy of right-sided lung nodules on June 21, 2018. The nodules were benign. Because of her tobacco use history she continues to qualify for lung cancer screening chest CTs and I have been following her forfor these. She was last seen on November 23, 2020 and comes in for 1 year follow-up. She reports no symptoms in the past year. Current Outpatient Medications on File Prior to Visit Medication Sig Dispense Refill ??? albuteroL (Proventil) 2.5 mg /3 mL (0.083 %) Solution for Nebulization Inhale 2.5 mg into the lungs Three times a day. ??? cholecalciferol (Vitamin D3) 1,000 unit Tablet Take 2,000 Units by mouth Daily. ??? dilTIAZem (Cardizem) 30 mg Tablet TAKE ONE-HALF TABLET BY MOUTH THREE TIMES A DAY ??? rosuvastatin (Crestor) 5 mg Tablet Take 5 mg by mouth daily. ??? chlorthalidone (Hygroten) 25 mg Tablet ??? insulin lispro (HumaLOG) Solution 31/10 ??? ferrous gluconate 324 mg (38 mg iron) Tablet TAKE ONE TABLET BY MOUTH EVERY DAY ??? Magnesium Oxide 250 mg magnesium Tablet Take by mouth. ??? citalopram (CeleXA) 20 mg Tablet Take by mouth. ??? glucagon HCl (GLUCAGON, HUMAN RECOMBINANT,) 1 mg Recon Soln Inject 1 mg into the muscle as needed (as needed for hypoglycemia). 1 mL 3 ??? acetaminophen (TYLENOL) 500 mg Tablet Take 1 tablet by mouth every 4 hours as needed for Pain. 30 tablet 1 ??? dabigatran (PRADAXA) 150 mg Capsule Take 1 capsule by mouth 2 times daily. 180 capsule 0 ??? insulin aspart U-100 (NovoLOG) 100 unit/mL Solution Inject subcutaneously 3 times daily (with meals). ??? levothyroxine (SYNTHROID) 125 mcg Tablet TAKE ONE TABLET BY MOUTH EVERY DAY 90 tablet 3 ??? ONETOUCH ULTRA TEST Strip 1 strip by Other route 4 times daily. 4 ??? pantoprazole (PROTONIX) 40 mg Tablet, Delayed Release (E.C.) TAKE ONE TABLET BY MOUTH TWICE A DAY 98 ??? carvedilol (COREG) 3.125 mg Tablet Take 3.125 mg by mouth 2 times daily (with meals). ??? Diabetic Supplies, Miscellan. Misc Form faxed to [employer] for pump supplies. 100 each 12 ??? losartan (COZAAR) 100 mg Tablet Take 50 mg by mouth daily. ??? aspirin 81 mg EC tablet Take 81 mg by mouth daily. ??? insulin lispro (HUMALOG) 100 unit/mL injection Inject 55-60 Units subcutaneously continuous. Via insulin pump No current facility-administered medications on file prior to visit. BP 179/58 (BP Location (NBP): Left arm, Patient Position: Sitting) Pulse 65 Temp 36.4 ??C (97.5??F) (Temporal) Resp 20 Wt 76.1 kg (167 lb 12.3 oz) SpO2 99% BMI 26.84 kg/m?? Physical exam: She appears comfortable. She is alert, oriented and in no distress. She has no palpable adenopathy and no neurologic deficits. Imaging: I reviewed with the patient her chest CT dated December 20. Her bilateral lung nodules appear stable. There is however thickening in the distal esophagus and fundus, which in the absence oforal contrast is nonspecific Assessment: 61-year-old woman with multiple lung nodules, previous benign biopsy and stable size and appearance of the nodules. I appraised her of the abnormal findings in the esophagus, and as she has a history of Lopez's esophagus we will reengage with GI to see whether endoscopy is appropriate. From the standpoint of her lung nodules, we will continue lung cancer screening and she will return in 1 year. By my calculation she will continue to qualify for lung cancer screening until she is 68. Plan: Return to clinic in [address] chest CT, GI referral for possible endoscopy CÉSAR ESCOBAR MD documented in this encounter Plan of Treatment Upcoming Encounters Date Type Department Care Team (Late st Contact Info) Description 12/19/2023 1:00 PM EDT Tech [place] [address] Marguerite Macias 12/19/2023 3:00 PM EDT Office [place] [address] Gardenia Golden, [facility] [place] [address] 01/29/2024 1:[address] [place] [address] César Escobar MD [facility] DR THORACIC SURGERY [place], [place] [id number] 01/29/2024 2:30 PM EDT Office [place] [address] César Escobar MD [facility] [place] [address] documented as of this encounter Visit Diagnoses Diagnosis Multiple lung nodules Other nonspecific abnormal finding of lung field documented in this encounter Care Teams Emergency Room Doctor Relationship Specialty Start Date End Date Shirley Yu MD [address] [place] [address] PCP - General 11/19/14 documented as of this encounter
--- OUTSIDE RECORDS SUMMARY | 2023-12-13 18:23 | XMS_ITS | Encounter Summary ---
Author Organization [facility] [place] [address] Care Team Providers Care Copy Supervisor Name Role Phone Shirley Yu MD Primary Care Provider Reason for Visit * Reason Onset Date Comments Appointment 01/07/2021 Encounter Details Date Type Department Care Team (Late st Contact Info) Description 01/07/2021 Telephone Ophthalmology at [facility] [place] [phone] Bridget Dominguez MD [facility] [place] [address] Appointment Social History Tobacco Use Types Packs/Day Years [...] encounter Miscellaneous Notes * Telephone Encounter - Jessica Vilchis - 01/07/2021 11:26 AM EDT Patient confirmed * Telephone Encounter - Yoly Best 01/07/2021 11:16 AM EDT LMOAM x 1 to schedule: Follow up 12 weeks after that for DFE in the mini room/JAN/Possible Triesence OD DM will not be here at 12 weeks. So, I have scheduled her at 11 weeks in order to hold a date and time. Please confirm with patient documented in this encounter Plan of Treatment Upcoming Encounters Date Type Department Care Team (Late st Contact Info) Description 12/19/2023 1:00 PM EDT Tech Visit [place] [phone] Marguerite Macias 12/19/2023 3:00 PM EDT Office [place] [address] Gardenia Golden, [facility] [address] VASCULAR SURGERY [place], [place] [id number] 01/29/2024 1:[address] [place] [address] César Escobar MD [facility] [place] [address] 01/29/2024 2:30 PM EDT Office [place] [address] César Escobar MD [facility] [place] [address] documented as of this encounter Visit Diagnoses Not on filedocumented in this encounter Care Teams Copy Supervisor Relationship Specialty Start Date End Date Shirley Yu MD [address] [place] [address] PCP - General 11/19/14 documented as of this encounter
--- OUTSIDE RECORDS SUMMARY | 2023-12-13 18:23 | XMS_ITS | Encounter Summary ---
Author Organization [facility] Address [facility] [place] [address] Care Team Providers Care Cleaning And Washing Equipment Operator Name Role Phone Shirley Yu MD Primary Care Provider [phone] Reason for Visit * Consultation (Routine) - Specialty Diagnoses / Procedures Referred By Contpietro t Referred To Contact Nephrology Diagnoses Chronic kidney disease, unspecified RENAL INSUFFICIENCY Shirley Yu MD [address] [place] [address] [facility] [address] [place] [phone] Referral ID Status Reason Start Date Expiration Date V isits Requested Visits Authorized [id number] Consult, Test & Treat Connection [facility] PCP Updated and/or Approved 06/13/2019 12/14/2019 6 6 Encounter Details Date Type Department Care Team (Latest Contact Info) Description 08/21/2019 2:00 PM EDT TH Visit (TeleHealth) [place] [address] Hussain Rader MD [facility] [place] [address] Kalin Bourgeois MD [facility] [address] CKD (chronic kidney disease) stage 3, GFR 30-59 ml/min; 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 Bourgeois conversation with patient and telehealth setting. 58-year-old female with history of CKD stage III/IV- A2 follows up in renal clinic. Most recent EGFR 28 mL/min per external labs in July 2019 roughly stable from last visit in clinic in January 2018. CKD likely secondary to di abetes. Patient is on losartan 50 mg. We do note some minor hyper per kalemia, which at this level is permissible given renal benefit. Blood pressure appears above goal, however patient is not consistently measuring. Continue losartan and carvedilol. Of note patient is on dabigtraban, and recommendfollowing up with vascular given borderline kidney function at this dose. We do not have any recentbone mineral or anemia labs and we will send external orders to [facility]. Time attestation total of 25 minutes was spent on this encounter greater than 50% in direct counselwith patient * Kalin Bourgeois MD - 08/21/2019 2:00 PM EDT Nephrology clinic follow up notes: PATIENT: Jennifer Snyder : 1960 This is a tele visit ID:Ms blake is a 54 yo female who is being followed for CKD related to diabetic nephropathy. Was type -1 diabetic for> 42 yrs been on insulin which is complicated by retinopathy and nephropathy. ?? Other history:S/p Bilateral CEA's, left iliac stenting in 2005, and right common femoral to above-knee popliteal vein graft in 2008. 09/11/12 LEFT EIA stent placement (8x60mm Everflex dilated to 7mm) RIGHT CLAIM REVIEW MEDICAL DIRECTOR angioplasty (Milana 5x40mm to 6 elias) Vascular planning rt sided angio to evaluate patency of right popliteal to femoral bypass as there is increased stenosis in the graft but was currently on hold due to CRF. Interim history: She had complicated PAD ,under close follow up with vascular surgery had angiogramand intervention. Overall feeling all right. Does not check blood pressure regularly Takes blood pressure meds regularly and is on Dabigatran. No shortness of breath, or leg edema, no urinary symptoms. ROS: 4 point review of sytem was done, everything was negative except for what was mentioned above. Past Medical History: Diagnosis Date ??? Allergy Sulfa, Penicillin ??? Allergy ??? Antiplatelet or antithrombotic long-term use on pletal and pradaxa for circulation ??? Cardiac disease PAD ??? Cataract ??? Claudication has had proceures in leg for ??? CPAP (continuous positive airway pressure) dependence Tolerates CPAP ??? Depression 02/18/2015 ??? Diabetes mellitus Type 1 ??? DM eyes ??? Heart valve disease ??? High blood pressure fluctuates ??? Hyperlipidemia ??? Hypertension ??? Hyperthyroidism ??? Motion sickness not bad ??? Obstructive sleep apnea ??? Post-operative nausea and vomiting had once years ago ??? Skin disease Hyperkeratosis palmaris et plantaris ??? Thyroid disease Hyperthyroidism ??? Transfusion history a long time ago ??? Type 1 diabetes 1976 A1C is a little high Past Surgical History: Procedure Laterality Date ??? CATARACT EXTRACTION, EXTRACAPSULAR, W/ LENS INSERTION Right 06/19/2013 OD - Dr Szymanski ??? CATARACT EXTRACTION, EXTRACAPSULAR, W/ LENS INSERTION Left 07/03/2018 OS - Dr. Szymanski ??? PRO BLOOD/LYMPH SYSTEM PROCEDURE Right 02/20/2019 EXPLORATION GROIN W\DRAIN & DEBRIDE LYMPHOCELE (WRVU *) performed by Kaity Fontaine MD at [facility] MAIN OR ??? PRO BRONCHOSCOPY, DIAGNOSTIC N/A 06/21/2018 BRONCHOSCOPY, DIAGNOSTIC (WRVU 2.78) performed by César Escobar MD at [facility] OR ? ? PRO DEBRIDEMENT SUBCUTANEOUS TISSUE 20 SQCM/< Right 02/22/2019 DEBRIDEMENT SKIN AND SUBCU, LOWER EXTREMITY (WRVU 1.01) performed by Kaity Fontaine MD at [facility] ? ? PRO DEBRIDEMENT SUBCUTANEOUS TISSUE 20 SQCM/< Right 02/25/2019 DEBRIDEMENT SKIN AND SUBCU, LOWER EXTREMITY (WRVU 1.01) performed by Kaity Fontaine MD at [facility] ? ? PRO DEBRIDEMENT SUBCUTANEOUS TISSUE 20 SQCM/< Right 02/27/2019 DEBRIDEMENT SKIN AND SUBCU, LOWER EXTREMITY (WRVU 1.01) performed by Patricia Jensen MD at [facility] OR ? ? PRO EDG FLEXIBLE TRANSORAL ABLATE TUMOR POLYP/LESION W/DILATION & WIRE N/A 06/22/2016 EGD, TRANSORAL; WITH ABLATION OF TUMOR(S), POLYP(S), OR OTHER LESION(S) (WRVU 4.26) performed by Christos Donald MD at [facility] ENDOSCOPY ? ? PRO INJECTION ANES AGENT &/ STEROID INTERCOSTAL NERVE EA ADDL LEVEL Right 06/21/2018 NERVE BLOCK, INTERCOSTAL NERVE, MULTIPLE (WRVU 1.68) performed by César Escobar MD at [facility] OR ??? PRO REOPERATION, BYPASS GRAFT Right 02/04/2019 @RE-OP FOR RE-DO LOWER EXTREMITY BYPASS GRAFT, >1 MONTH P\ ORIGINAL SURGERY, ADD-ON CODE (WRVU 3.08) performed by Kaity Fontaine MD at [facility] OR ??? PRO THORACOSCOPY WITH THERAPEUTIC WEDGE RESECTION INITIAL UNILAT Right 06/21/2018 @THORACOSCOPY, SURG; W/THERAPEUTIC WEDGE RESECTION, INIT UNILATERAL (WRVU 14.5) performed by César Escobar MD at [facility] MAIN OR ??? PRO THROMBOENDARTECTMY FEMORAL COMMON Right 02/04/2019 @ENDARTERECTOMY, COMMON FEMORAL W OR W/O PATCH GRAFT (WRVU 15.31) performed by Kaity Fontaine MD [facility] MAIN OR ??? PRO THROMBOENDARTECTMY FEMORAL DEEP Right 02/04/2019 @ENDARTERECTOMY, PROFUNDAPLASTY, DEEP, PROFUNDA FEMORIS W OR W/O PATCH GRAFT (WRVU 18.58) performedby Kaity Fontaine MD at [facility] MAIN OR ??? PRO TX EXTENSIVE RETINOPATHY, PHOTOCOAGULATION Left 2018 PRP OS - [place] ??? PRO UNLISTED PX ABDOMEN MUSCULOSKELETAL SYSTEM Right 02/27/2019 WOUND CLOSURE, ABDOMINAL, PARTIAL W/ WOUND VAC (WRVU 6.39) performed by Patricia Jensen MD at [facility] MAIN OR ??? PRO UPPER GI ENDOSCOPY, BIOPSY N/A 10/24/2016 UPPER GASTROINTESTINAL ENDOSCOPY,WITH BIOPSY SINGLE OR MULTIPLE (WRVU 2.49) performed by Agapito Parmar MD at [facility] ENDOSCOPY ??? PRO UPPER GI ENDOSCOPY, DIAGNOSTIC N/A 06/22/2016 EGD, UPPER GI ENDOSCOPY performed by Christos Donald MD at [facility] ENDOSCOPY ??? RETINAL LASER SURGERY Left 01/20/2012 OS ??? RETINAL LASER SURGERY Left 03/02/2012 OS ??? RETINAL LASER SURGERY Left 08/10/2012 OS ??? RETINAL LASER SURGERY Right 09/28/2012 OD ??? RETINAL LASER SURGERY Right 10/26/2012 OD ??? RETINAL LASER SURGERY Right 02/15/2013 PRP OD - Dr Vega ??? RETINAL LASER SURGERY Left 05/22/2015 PRP OS - CBC ??? VASCULAR SURGERY 2001 Left CEA ??? VASCULAR SURGERY 2006 Left com iliac stent, R SFA stents ??? VASCULAR SURGERY 1009 Right CLAIM REVIEW MEDICAL DIRECTOR-AK pop vein graft ??? VS ARTERIOGRAM LOWER EXTREMITY VASCULAR SURGERY 04/27/2018 VS Arteriogram Lower Extremity Vascular Surgery 04/27/2018 Kaity Fontaine MD [facility] INTERVENTIONL RAD ??? YAG CAPSULOTOMY Bilateral 02/27/15 YAG CAP OU - Nessa Family History Problem Relation Age of Onset ??? Cataracts Mother ??? Chronic Obstructive Pulmonary Disease Mother ??? Hypertension Mother ??? Diabetes Father ??? Heart Disease Father ??? Cancer Maternal Grandmother ??? Myocardial Infarction Brother ??? Colorectal Cancer Maternal Grandfather ??? Thyroid Disease Neg Hx ??? Stroke Neg Hx ??? Strabismus Neg Hx ??? Retinal Detachment Neg Hx ??? Macular Degeneration Neg Hx ??? Glaucoma Neg Hx ??? Blindness Neg Hx ??? Amblyopia Neg Hx Social History Social History Narrative Not on file Outpatient medications: Current Outpatient Medications on File Prior to Visit Medication Sig Dispense Refill ??? gabapentin (Neurontin) 300 mg Capsule Take 300 mg by mouth 3 times daily as needed. ??? glucagon HCl (GLUCAGON, HUMAN RECOMBINANT,) 1 [...] 180 capsule 0 ??? insulin aspart U-100 (NOVOLOG U-100 INSULIN ASPART) Solution Inject subcutaneously 3 times daily (with meals). ??? levothyroxine (SYNTHROID) 125 mcg Tablet TAKE ONE TABLET BY MOUTH EVERY DAY 90 tablet 3 ??? simvastatin (ZOCOR) 40 mg Tablet Take 40 mg by mouth nightly. ??? ONETOUCH ULTRA TEST Strip 1 strip by Other route 4 times daily. 4 ??? citalopram (CELEXA) 40 mg Tablet Take 20 mg by mouth daily. ??? pantoprazole (PROTONIX) 40 mg Tablet, Delayed Release (E.C.) TAKE ONE TABLET BY MOUTH TWICE A DAY 98 ??? carvedilol (COREG) 3.125 mg Tablet Take 6.25 mg by mouth 2 times daily (with meals). ??? Diabetic Supplies, Miscellan. Misc Form faxed to [employer] for pump supplies. 100 each 12 ??? losartan (COZAAR) 100 mg Tablet Take 50 mg by mouth daily. ??? Magnesium 250 mg Tab Take by mouth daily. ??? aspirin 81 mg EC tablet Take 81 mg by mouth daily. ??? insulin lispro (HUMALOG) 100 unit/mL injection Inject 55-60 Units subcutaneously continuous. Via insulin pump No current facility-administered medications on file prior to visit. MEDICATIONS: Allergies Allergen Reactions ??? Sulfa (Sulfonamide Antibiotics) Other (See Comments) Renal failure, bleeding ??? Pcn [Penicillins] Unknown PHYSICAL EXAM: Last value Range last 24 hrs Temperature Temp: -- Heart Rate Heart Rate: 69 Heart Rate: -- Blood Pressure BP: 151/66 BP: -- Respiratory Rate Resp: -- SpO2 SpO2: -- This is a tele visit. Physical exam not done STUDIES: Labs: CBC: Recent Labs 03/01/1940302/28/1930502/27/19426 WBC 9.0 7.6 6.6 HGB 10.1* 10.0* 10.3* PLATELET 276 281 269 Chemistry: Recent Labs 03/01/1940302/28/1930502/27/1942602/08/19 0421 02/07/19 0418 02/06/19 0438 NA 140 135 138 < > 142 142 140 K 4.8 4.6 5.2* < > 4.3 4.3 4.5 CL 104 100 102 < > 107 107 106 CO2 24 23 25 < > 24 23 25 BUN 38* 42* 34* < > 23* 22* 20* CREATININE 1.83* 2.20* 1.94* < > 1.43* 1.37* 1.50* GLUCOSE -- -- -- -- 138 121 142 < > = values in this interval not displayed. Recent Labs 03/01/1940302/28/1930502/27/19426 CALCIUM 9.1 8.9 9.0 LFT's: No results for input(s): BILITOT, BILIDIR, ALBUMIN, ALKPHOS, ALT, AST in the last 7068 hours. US of kidney 2016: ight Kidney Size (cm) L: 10.6 Cortical Thickness: Cortical thinning Cortical Echogenicity: Increased echogenicity Hydronephrosis: No sonographic evidence ?? Left Kidney Size (cm) L: 10.5 Cortical Thickness: Cortical thinning Cortical Echogenicity: Increased echogenicity Hydronephrosis: No sonographic evidence ?? UA:1.015:ph:5:leuk:trace:nit:pos:prot:trace:blood:trace IMPRESSION/ RECOMMENDATIONS: ID: 1,CKD stage G3 b A2: Kidney function is stable .Last labs done OSH 07/15/19 was 1.79. egfr 29. CKD due to supervisor loading diabetes and HTN, but her urine protein creatinine ratio is<0.2 , have microalbuminuria. 2,HTN: Will continue with losartan and coreg, not regularly checking her blood pressure at home. Last blood pressure is 151/66 checked at home a few days before anticipating this tele visit . Pt has mild hyperkalemia, will continue the same meds. She will be doing her labs at [facility] shortly, if her K is high will have to adjust her losartan. 3,Bone and Mineral Disease: Calcium ,phos and PTH were at Goal, last visit, will get labs done at [facility] soon. 4,Anemia: Hemoglobin at goal last visit we do not have any new labs, pt wants to get labs at [facility]. Her creatinine clearance is 48, which we belieive is being used for dosing her Dabigatran, but requested patient to call Vascular surgery to make sure that Dabigatran 150 BID is appropriate for the indications that she is on for her current renal function. Thanks for letting us participate in the care of this patient. Seen and Discussed w/ Dr. Rader CKD labs in 1 week at [facility] RTC in 6 months,. Kalin Bourgeois MD Nephrology Fellow #[id number] documented in this encounter Miscellaneous Notes * Addendum Note - Hussain Rader MD - 08/21/2019 2:00 PM EDTAddended by: HUSSAIN RADER on: 08/22/2019 09:07 AM Modules accepted: Level of Service documented in this encounter Plan of Treatment Upcoming Encounters Date Type Department Care Team (Late st Contact Info) Description 12/19/2023 1:00 PM EDT Tech [place] [address] Marguerite Macias 12/19/2023 3:00 PM EDT Office [place] [address] Gardenia Golden APRN [facility] [place] [address] 01/29/2024 1:[address] [place] [address] César Escobar MD [facility] [place] [address] 01/29/2024 2:30 PM EDT Office [place] [address] César Escobar MD [facility] [place] [address] documented as of this encounter Results * (ABNORMAL) PTH (07/21/2020 12:47 PM EDT) Parathyroid Hormone 127(H) 15 - 65 pg/mL [facility] Blood specimen (specimen) 07/21/2020 12:47 PM EDT 07/21/2020 12:59 PM EDT Narrative Resulting Agency Comment Spec In Lab Hussain Rader MD CHEMISTRY ORDERABLES [facility] [place] [address] * Phosphorus (07/21/2020 12:47 PM EDT) Phosphorus 4.2 2.5 - 4.5 mg/dL [facility] Blood specimen (specimen) 07/21/2020 12:47 PM EDT 07/21/2020 12:59 PM EDT Narrative Resulting Agency Comment Spec In Lab Hussain Rader MD CHEMISTRY ORDERABLES [facility] [place] [address] * (ABNORMAL) Basic Metabolic Panel (non-fasting) (07/21/2020 12:47 PM EDT) Glucose 179 65 - 199 mg/dL [facility] Comment:Diabetes: >=200 mg/d L plus symptoms Blood Urea Nitrogen 24(H) 8 - 18 mg/dL [facility] Creatinine 1.65(H) 0.70 - 1.20 mg/dL [facility] Sodium 134(L) 135 - 145 mmol/L [facility] Potassium 5.8(H) 3.5 - 5.0 mmol/L [facility] Comment: Please note: ??Patients with WBC >100,000 may have falsely elevated Potassium levels. ??For accurate Potassium quantification in these patients send serum separator tube (gold top) for subsequent determinations. ??Contact the Clinical Chemistry Laboratory if there are any questions. Chloride 99 98 - 107 mmol/L [facility] Carbon Dioxide 27 22 - 31 mmol/L [facility] Anion Gap 8 5 - 15 mmol/L [facility] Calcium 8.9 8.5 - 10.5 mg/dL [facility] Est Glomerular Filtration Rate 33(L) >=60 mL/min/1. 73 m?? [facility] Comment: This patient? s estimated [...] In Lab Hussain Rader MD CHEMISTRY ORDERABLES Performing Organization Address City/[facility] Co de Phone Number [facility] [place] [address] * Albumin Level (07/21/2020 12:47 PM EDT) Albumin 3.9 3.2 - 5.2 gm/dL [facility] Blood specimen (specimen) 07/21/2020 12:47 PM EDT 07/21/2020 12:59 PM EDT Narrative Resulting Agency Comment Spec In Lab Hussain Rader MD CHEMISTRY ORDERABLES Performing Organization Address City/[facility] Co de Phone Number [facility] [place] [address] documented in this encounter Visit Diagnoses Diagnosis CKD (chronic kidney disease) stage 3, GFR 30-59 ml/min Chronic kidney disease, Stage III (moderate) 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
--- OUTSIDE RECORDS SUMMARY | 2023-12-13 18:23 | XMS_ITS | Encounter Summary ---
Author Organization [facility] [place] [address] Care Team Providers Care Burr Picker Name Role Phone Shirley Yu MD Primary Care Provider [phone] Reason for Visit * Reason Comments Procedure AvastinOD #2/3 Diabe tic Retinopathy * High Dollar Medication (Routine) - Closed Specialty Diagnoses / Procedures Referred By Contpietro t Referred To Contact Ophthalmology Diagnoses Type 1 diabetes mellitus with proliferative diabetic retinopathy without macular edema, bilateral Avastin OD Procedures BEVACIZUMAB INJECTION TC BEVACIZUMAB, 10MG, INJECTION (AVASTIN) MINOR SURGERY Bridget Dominguez MD [facility] [place] [address] Bridget Dominguez MD [facility] [place] [address] Referral ID Status Reason Start Date Expiration Date Visits Re quested Visits Authorized [id number] Closed 09/24/2020 03/26/2021 6 6 Encounter Details Date Type Department Care Team (Latest Contact Info) Description 10/22/2020 3:00 PM EDT Procedure visit Ophthalmology at [facility] [place] [address] Bridget Dominguez MD [facility] [place] [address] 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 Social History Tobacco Use Types Packs/Day Years [...] on file documented as of this encounter Patient Instructions * Patient Instructions* Odalys Kaplan COA - 10/22/2020 3:00 PM EDT Today you had your right eye(s) injected with a medication called Avastin. -Please pay attention to your future scheduled appointments if you are having repeat injections. Future injections in the same eye must be at least 28 days apart. -Please, do not rub or wipe your eye for 24-48 hours after the injection as it would create more irritation.If you feel you must, close your eyes, dab gently, and use the sterile pink saline bullets to flush your eyes. -Try to avoid getting tap water or bath water in the eye for 48 hours. Do not swim for 48 hours. -Caution about driving: We always recommend having a restaurant delivery driver on the day you get an injection. If youdo not feel comfortable driving after your procedure, please allow your vision to recover or make alternate arrangements. - Here are the Normal and Expected side effects: -Do not be surprised or worried if you have a few bloody tears after the injection. You may have a small blood spot on the white of your eye (subconjunctival hemorrhage) or the appearance of a small blister or bump where the injection was given. -You may notice your vision seems a bit hazy and you may see floaters. -All of these things should gradually become less noticeable over the next few days. -You may also have some mild irritation or a foreign body sensation for up to 24 hours. - Here are the Not Normal and Not Expected side effects: Call [phone] (Eye Clinic) DAY or NIGHT, HOLIDAY or WEEKEND if you experience any of the following: = Severe, increasing pain in the eye = Significant, dramatic vision loss = Redness on and around the eye that gets worse, not better = Severe light sensitivity Call 911 or go to the Emergency room immediately if you experience = Chest pain = Abdominal pain = Weakness or numbness on any part of your body = Slurred speech = Or any other symptoms of concern documented in this encounter Plan of Treatment Upcoming Encounters Date Type Department Care Team (Late st Contact Info) Description 12/19/2023 1:00 PM EDT Tech [place] [address] Marguerite Macias 12/19/2023 3:00 PM EDT Office [place] [phone] Gardenia Golden APRN [facility] [place] [address] 01/29/2024 1:[address] [place] [phone] César Escobar MD [facility] [place] [address] 01/29/2024 2:30 PM EDT Office [place] [phone] César Escobar MD [facility] [place] [address] documented as of this encounter Procedures Procedure Name Priority Date/Time Associated Diagnosis Comments INTRAVITREAL INJECTION PHARMACOLOGIC AGENT - OD - RIGHT EYE Routine 10/22/2020 3:34 PM EDT 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 documented in this encounter Results * Intravitreal Injection Pharmacologic Agent - OD - Right Eye (10/22/2020 3:34 PM EDT) Anatomical Region Laterality Modality Other Narrative 10/22/2020 3:34 PM EDT Pre Operative Diagnosis: Diabetic Macular Edema - Diabetic Retinopathy Post Operative Diagnosis: Diabetic Macular Edema - Diabetic Retinopathy Procedure: Intravitreal injection of Avastin 1.25 mg Right Eye Assist: Over Short And Damage Clerk Anesthesia: Topical Proparacaine and topical 4% Lidocaine Complications: None Procedure: The patient was taken to the minor treatment suite where the patient was reidentified using name and birthdate as critical identifiers. The correct eye as the operative site was reidentified by a preplaced site bill, and the consent form was actively reviewed by the assistant librarian and the surgeon. The right eye was prepped including instillation of Betadine 5% into the right cul de sac for 5 minutes, facial prep with ophthalmic Betadine and placement of a lid speculum. The surgeon performed hand washing preoperatively, used gloves, and wore a face mask or used no talking technique during the procedure, as did the surgical oncologist. After topical anesthesia of the injection site using multiple Q-tips soaked in 4% Lidocaine, Bevacizumab (Avastin) 1.25 mg was injected with a 30 gauge needle directed toward the center of the vitreous cavity, a measured 4 mm posterior to the limbus at the 1030 o'clock meridian. The patient demonstrated a minimum of counting fingers vision post injection, and received a post injection drop of Betadine OD. An optional patch was offered to the patient, and the patient was asked to call the Eye Clinic or Eye Doctor commission associate, should they develop pain in the treated eye, increasing redness or a discharge from the eye. Condition on Discharge: Stable 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 documented in this encounter Administered Medications Inactive Administered Medications - up to 3 most recent administrations Medication Order MAR Action Action Date Dose Rate Site BEVACizumab (Avastin) ophthalmic injection 1.25 mg 1.25 mg, Intravitreal, ONCE, 1 dose, On Meseret 10/22/20 at 1600, For ophthalmic use only. Syringe contains 0.1 mL of overfill , Routine Given 10/22/2020 4:00 PM EDT 1.25 mg Right Eye documented in this encounter Care Teams Burr Picker Relationship Specialty Start Date End Date Shirley Yu MD [address] [place] [address] PCP - General 11/19/14 documented as of this encounter
--- OUTSIDE RECORDS SUMMARY | 2023-12-13 18:23 | XMS_ITS | Encounter Summary ---
[place] [address] Care Team Providers Care 3D Animator Name Role Phone Shirley Yu MD Primary Care Provider [phone] Encounter Details Date Type Department Care Team (Late st Contact Info) Description 09/12/2020 [place] [phone] Social History Tobacco Use Types Packs/Day Years [...] PM EDT Tech [place] [address] Marguerite Macias 12/19/2023 3:00 PM EDT Office [place] [address] Gardenia Golden, CARPENTER MOLD [facility] [place] [place] [address] 01/29/2024 1:[address] [place] [phone] César Escobar MD [facility] [place] [address] 01/29/2024 2:30 PM EDT Office [place] [phone] César Escobar MD [facility] [place] [address] documented as of this encounter Procedures Procedure Name Priority Date/Time Associated Diagnosis Comments ECG SCAN Routine 09/12/2020 documented in this encounter Results * Scan Doc: ECG (09/12/2020) Historical Provider MEDIA MGR SCAN EX T ORDR/RSLT documented in this encounter Visit Diagnoses Not on filedocumented in this encounter Care Teams 3D Animator Relationship Specialty Start Date End Date Shirley Yu MD [address] [place] [address] PCP - General 11/19/14 documented as of this encounter
--- OUTSIDE RECORDS SUMMARY | 2023-12-13 18:23 | XMS_ITS | Encounter Summary ---
Author Organization [facility] [place] [address] Care Team Providers Care Kai Whakaruruhau Name Role Phone Shirley Yu MD Primary Care Provider [phone] Reason for Visit * Reason Comments Diabetic Eye Exam Encounter Details Date Type Department Care Team (Latest Contact Info) Description 09/24/2020 3:00 PM EDT Office [place] [address] Bridget Dominguez MD [facility] [place] [address] Proliferative diabetic retinopathy of both eyes without [...] on file documented as of this encounter Progress Notes * Bridget Dominguez MD - 09/24/2020 3:00 PM EDT ASSESSMENT/PLAN: 1. 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 PDR s/p PRP OD with DME OD Treated with avastin Today 09/24/2020 The fluid is persistent. Will treat and keep the same interval 2. PDR s/p PRP OS with DME OS - monitor Follow up 4-5 weeks for Avastin OD #2/3 MSO only Follow up 4-5 weeks after that for Avastin OD #3/3 MSO only Follow up 4-5 weeks after that for DFE in the mini room/OCT/Possible Avastin OD. Sooner PRN Bridget Dominguez MD, PhD Extended Ophthalmoscopy Indication: 1. 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 Technique: A) Indirect ophthalmoscopy with scleral depression B) Slit lamp exam with 90D/78D lens Findings: Main Ophthalmology Exam External Exam Right Left External Normal Normal Slit Lamp Exam Right Left Lids/Lashes Normal slight inferior edema Conjunctiva/Sclera White and quiet White and quiet Cornea Clear Clear Anterior Chamber Deep and quiet Deep and quiet Iris Round and reactive Round and reactive Lens Posterior chamber intraocular lens, Posterior capsular opacification Posterior chamber intraocular lens, Posterior capsular opacification Fundus Exam Right Left Vitreous Normal Normal Disc regressed neovascularization regressed neovascularization C/D Ratio 0.3 0.3 Macula DME ,Minimal drusen but no exudate and minimal drusen but no exudate No active edema Vessels Normal Normal Periphery PRP PRP documented in this encounter Plan of Treatment Upcoming Encounters Date Type Department Care Team (Late st Contact Info) Description 12/19/2023 1:00 PM EDT Tech [place] [address] Marguerite Macias 12/19/2023 3:00 PM EDT Office [place] [phone] Gardenia Golden, GRID MOLDER [facility] [place] [address] 01/29/2024 1:[address] [place] [phone] César Escobar MD [facility] [place] [address] 01/29/2024 2:30 PM EDT Office [place] [address]1000 César Escobar MD [facility] [place] [address] documented as of this encounter Procedures Procedure Name Priority Date/Time Associated Diagnosis Comments OCT RETINA - OU - BOTH EYES Routine 09/24/2020 4:14 PM EDT 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 documented in this encounter Results * OCT Retina - OU - Both Eyes (09/24/2020 4:14 PM EDT) Anatomical Region Laterality Modality Other Narrative 09/24/2020 4:14 PM EDT Right Eye Quality was good. Scan locations included subfoveal. Progression has been stable. Findings include abnormal foveal contour, intraretinal fluid. Left Eye Quality was good. Scan locations included subfoveal. Progression has been stable. Findings include abnormal foveal contour. 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 documented in this encounter Care Teams Kai Whakaruruhau Relationship Specialty Start Date End Date Shirley Yu MD [address] [place] [address] PCP - General 11/19/14 documented as of this encounter
--- OUTSIDE RECORDS SUMMARY | 2023-12-13 18:23 | XMS_ITS | Encounter Summary ---
[place] [address] Care Team Providers Care Waste Examiner Name Role Phone Shirley Yu MD Primary Care Provider [phone] Encounter Details Date Type Department Care Team (Late st Contact Info) Description 07/24/2020 Telephone Neph[place] [address] Kalin Bourgeois MD [facility] [place] [address] Social History Tobacco Use Types Packs/Day Years [...] encounter Miscellaneous Notes * Telephone Encounter - Kalin Bourgeois MD - 07/24/2020 11:21 AM EDT Discussed with the patient regarding her K levels. Had PCP appointment yesterday and her PCP too discussed labs with her. Advised low K diet and discussed about foods that has low K. Her blood pressure at the PCP's office was 162/60- self reported. She does not want to add a diuretic at this time, since she wants to monitor her blood pressure at home and then decide on starting another medication. Advised to take Vitamin D3 2000 units. She verbalized understanding. documented in this encounter Plan of Treatment Upcoming Encounters Date Type Department Care Team (Late st Contact Info) Description 12/19/2023 1:00 PM EDT Tech [place] [address] Marguerite Macias 12/19/2023 3:00 PM EDT Office Visit [place] [address]1000 Gardenia Golden, LADARIUS [facility] [place] [address] 01/29/2024 1:[address] [place] [phone] César Escobar MD [facility] [place] [address] 01/29/2024 2:30 PM EDT Office [place] [address]-1000 César Escobar MD [facility] [place] [address] documented as of this encounter Visit Diagnoses Not on filedocumented in this encounter Care Teams Waste Examiner Relationship Specialty Start Date End Date Shirley Yu MD [address] [place] [address] PCP - General 11/19/14 documented as of this encounter
--- OUTSIDE RECORDS SUMMARY | 2023-12-13 18:23 | XMS_ITS | Encounter Summary ---
[place] [address] Care Team Providers Care Seamless Tube Mill Operator Name Role Phone Shirley Yu MD Primary Care Provider [phone] Encounter Details Date Type Department Care Team (Late st Contact Info) Description 10/07/2020 Orders Only Nephrology [place] [address] Kalin Bourgeois MD [facility] [place] [address] Hyperkalemia Social History Tobacco Use Types Packs/Day Years [...] as of this encounter Progress Notes * Kalin Bourgeois MD - 10/07/2020 9:57 AM EDT Discussed about getting repeat labs with the patient and she is ready to get it at [facility] this week. BMP ordered for hyperkalemia documented in this encounter Plan of Treatment Upcoming Encounters Date Type Department Care Team (Late st Contact Info) Description 12/19/2023 1:00 PM EDT Tech Visit Vascular Lab at [place] [phone] Marguerite Macias 12/19/2023 3:00 PM EDT Office Visit [place] [address] Gardenia Golden APRN [facility] [place] [address] 01/29/2024 1:[address] Scan at [place] [phone] César Escobar MD [facility] [place] [address] 01/29/2024 2:30 PM EDT Office Visit [place] [address] César Escobar MD [facility] [place] [address] documented as of this encounter Visit Diagnoses Diagnosis Hyperkalemia Hyperpotassemia documented in this encounter Care Teams Seamless Tube Mill Operator Relationship Specialty Start Date End Date Shirley Yu MD [address] [place] [address] PCP - General 11/19/14 documented as of this encounter
--- OUTSIDE RECORDS SUMMARY | 2023-12-13 18:23 | XMS_ITS | Encounter Summary ---
[place] [address] Care Team Providers Care Engineering Technical Writer Name Role Phone Shirley Yu MD Primary Care Provider Encounter Details Date Type Department Care Team (Late st Contact Info) Description 02/26/2020 10:30 AM EST Tech Visit [place] [address] Domenica Gonzalez PVD (peripheral vascular disease); S/P bypass graft of extremity Social History [...] PM EDT Tech Visit [place] [address] Marguerite Macias 12/19/2023 3:00 PM EDT Office Visit [place] [phone] Gardenia Golden APRN [facility] [address] VASCULAR SURGERY [place], [place] [address] 01/29/2024 1:[address] [place] [address] César Escobar MD [facility] [place] [address] 01/29/2024 2:30 PM EDT Office [place] [address] César Escobar MD [facility] DR THORACIC SURGERY [place], [place] [address] documented as of this encounter Procedures Procedure Name Priority Date/Time Associated Diagnosis Comments UNILATERAL BYPASS GRAFT ASSESS Routine 02/26/2020 10:33 AM EST PVD (peripheral vascular disease) S/P bypass graft of extremity SHEFALI, LEGS, MULTIPLE LEVELS Routine 02/26/2020 10:33 AM EST PVD (peripheral vascular disease) S/P bypass graft of extremity documented in this encounter Results * Unilat Bypass Graft Assess (02/26/2020 10:33 AM EST) VB Text Report Department: Vascular Surgery Lab Patient: [id number] (JENNIFER SNYDER) CPT: 23528 ICD10: I73.9;Z95.828 Referring Physician: JAXON FONTAINE MD ?? Phone: Indications: Rt BLUE LEATHER SORTER- AK Pop BPG, ? patency/ stenosis ICD10 [...] evidence of stenosis. Electronically Signed by: JAYLEN MAGANA on 2020-02-26 01:06:42 PM [facility] VB Text Report End of Report [facility] 02/26/2020 10:3 3 AM EST Jaxon Fontaine MD VASCULAR ORDERABLES [facility] * SHEFALI, legs, multiple levels (02/26/2020 10:33 AM EST) VB Text Report Department: Vascular Surgery Lab Patient: [id number] (JENNIFER SNYDER) CPT: 56877 ICD10: I73.9;Z95.828 Referring Physician: JAXON FONTAINE MD [...] Dorsalis Pedis (Ankle) Artery ?107 ? 0.54 ??Luquillo-Biphasic ? Posterior Tibial (Ankle) Artery ??115 ? 0.58 ??Luquillo-Biphasic ? Great Toe ?67 ? 0.34 ?? [...] status documented in this encounter Care Teams Engineering Technical Writer Relationship Specialty Start Date End Date Shirley Yu MD [address] [place] [address] PCP - General 11/19/14 documented as of this encounter
--- OUTSIDE RECORDS SUMMARY | 2023-12-13 18:23 | XMS_ITS | Encounter Summary ---
Author Organization [facility] [place] [address] Care Team Providers Care Computer Systems Designer Name Role Phone Shirley Yu MD Primary Care Provider [phone] Reason for Referral * Diagnostic Test (Routine) - Closed Specialty Diagnoses / Procedures Referred By Contpietro t Referred To Contact Radiology Diagnoses Pulmonary granuloma Multiple lung nodules Hx of smoking Procedures CT Chest wo Contrast (Generic) César Escobar MD [facility] [place] [address] [facility] [place] [address] Referral ID Status Reason Start Date Expiration Date V isits Requested Visits Authorized [id number] Closed Specialty Service Requested 11/23/2020 02/28/2022 1 1 Reason for Visit * Diagnostic Test (Routine) - Closed Specialty Diagnoses / Procedures Referred By Contpietro t Referred To Contact Radiology Diagnoses Pulmonary granuloma Multiple lung nodules Hx of smoking Procedures CT Chest wo Contrast (Generic) César Escobar MD [facility] [place] [address] [facility] [place] [address] Referral ID Status Reason Start Date Expiration Date V isits Requested Visits Authorized [id number] Closed Specialty Service Requested 11/23/2020 02/28/2022 1 1 Encounter Details Date Type Department Care Team (Latest Contact Info) Description 12/20/2021 3:12 PM EDT - 12/20/2021 11:59 PM EDT Hospital Encounter CT Scan at [facility] [place] [phone] César Escobar MD [facility] [place] [address] Pulmonary granuloma; Multiple lung nodules; Hx of smoking Discharge Disposition: Home Social [...] Sig Dispensed Refills Start Date End Date carvediloL (Coreg) 6.25 mg Tablet 10/06/2021 rosuvastatin [...] Diabetic Supplies, Miscellan. Misc Form faxed to [employer] for pump supplies. 100 each 12 03/23/2015 losartan (COZAAR) 100 mg Tablet Take 50 mg by mouth daily. 08/11/2014 aspirin 81 mg EC tablet Take 81 mg by mouth daily. insulin lispro (HUMALOG) 100 unit/mL injection Inject 55-60 Units subcutaneously continuous. Via insulin pump albuteroL (Proventil) 2.5 mg /3 mL (0.083 %) Solution for Nebulization Inhale 2.5 mg into the lungs Three times a day. 04/21/2022 cholecalciferol (Vitamin D3) 1,000 unit Tablet Take 2,000 Units by mouth Daily. 04/21/2022 dilTIAZem (Cardizem) 30 mg Tablet TAKE ONE-HALF TABLET BY MOUTH THREE TIMES A DAY 12/05/2021 04/21/2022 chlorthalidone (Hygroten) 25 mg Tablet 10/22/2020 12/01/2023 insulin lispro (HumaLOG) Solution 24/7 01/07/2016 glucagon HCl (GLUCAGON, HUMAN RECOMBINANT,) 1 mg Recon Soln Inject 1 mg into the muscle as needed (as needed for hypoglycemia). 1 mL 3 02/18/2019 12/01/2023 acetaminophen (TYLENOL) 500 mg Tablet Take 1 tablet by mouth every 4 hours as needed for Pain. 30 tablet 1 02/08/2019 12/01/2023 levothyroxine (SYNTHROID) 125 mcg Tablet TAKE ONE TABLET BY MOUTH EVERY DAY 90 tablet 3 03/14/2018 04/21/2022 carvedilol (COREG) 3.125 mg Tablet Take 3.125 mg by mouth 2 times daily (with meals). 04/21/2022 documented as of this encounter Plan of Treatment Upcoming Encounters Date Type Department Care Team (Late st Contact Info) Description 12/19/2023 1:00 PM EDT Tech [place] [phone] Marguerite Macias 12/19/2023 3:00 PM EDT Office Visit [place] [address] Gardenia Golden, LADARIUS [facility] [place] [address] 01/29/2024 1:[address] [place] [address] César Escobar MD [facility] [place] [address] 01/29/2024 2:30 PM EDT Office Visit [place] [address] César Escobar MD [facility] [place] [address] documented as of this encounter Procedures Procedure Name Priority Date/Time Associated Diagnosis Comments CT CHEST WO CONTRAST (GENERIC) Routine 12/20/2021 3:24 PM EDT Pulmonary granuloma Multiple lung nodules Hx of smoking documented in this encounter Results * (ABNORMAL) CT Chest wo Contrast (Generic) (12/20/2021 3:24 PM EDT) Anatomical Region Laterality Modality Chest Computed Tomogra phy 12/20/2021 3:40 PM EDT Impressions 12/20/2021 5:59 PM EDT 1. ??Stable bilateral variable sized pulmonary nodules. None new. 2. ??Thickened distal esophagus of unknown clinical significance with thickened gastroesophageal junction and cardiac fundus suspected. Cannot distinguish shouldering at the gastric cardia from ingested material and clinical correlation and consideration for direct visualization suggested to exclude the possibility of an occult lesion. Unexpected finding. Thank you for letting us participate in the care of this patient. ??If you are a health care provider and have any questions regarding this report, please contact the number below. ??For patients who have questions please contact the health housekeeper caregiver that requested your imaging first. ? Narrative 12/20/2021 5:59 PM EDT EXAMINATION: CT CHEST WO CONTRAST (GENERIC) CLINICAL HISTORY: Lung cancer annual screening, asymptomatic, former smoker quit w/in last 15 yrs (min. 20 pack-yrs); Lung nodule, > 8mm, follow up exam hx of RLL wedge resection 06/20/18 for granulomatous inflammation, hx of multiple nodules, smoking, please eval for changes, evidence of disease TECHNIQUE: 3 mm thick axial contiguous sections were obtained through the chest via helical acquisition without intravenous contrast administration. Thin-section reconstructions as well as coronal and sagittal reformatted images were generated. COMPARISON: November 26, 2019 and November 23, 2020 FINDINGS: Pulmonary parenchyma: Many stable bilateral central and peripheral variable size pulmonary nodules. Largest at the right lower lobe 9 mm and left lower lobe 10 mm respectively, stable. Calcified nodule at the left lower lobe is stable. None new. Calcified granuloma moderate are stable. Airways: No significant findings. Pleura: No pleural effusion Lymph nodes: None pathologically enlarged Heart, pericardium, and great vessels: Normal size heart. No pericardial effusion. Moderate to severe picayune coronary artery calcification. Other mediastinal structures: Thickened distal esophagus of unknown clinical significance. Air-filled esophagus raises the possibility of gastroesophageal reflux disease. Lower neck: Symmetric thyroid lobes Upper abdomen: Thickened gastroesophageal junction and gastric fundus suspected. Cannot distinguish shouldering at the gastric cardia from ingested material. Body wall soft tissues: No muscular asymmetry Skeletal structures: No suspicious lesions. Resulting Agency Comment Unexpected Finding César Escobar MD IMG CT ORDERABLE S documented in this encounter Visit Diagnoses Diagnosis Pulmonary granuloma Postinflammatory pulmonary fibrosis Multiple lung nodules Other nonspecific abnormal finding of lung field Hx of smoking Personal history of tobacco use, presenting hazards to health documented in this encounter Care Teams Computer Systems Designer Relationship Specialty Start Date End Date Shirley Yu MD [address] [place] [address] PCP - General 11/19/14 documented as of this encounter
--- OUTSIDE RECORDS SUMMARY | 2023-12-13 18:23 | XMS_ITS | Encounter Summary ---
Author Organization [facility] [place] [address] Care Team Providers Care Wheel Cleaner Name Role Phone Shirley Yu MD Primary Care Provider [phone] Reason for Visit * Reason Comments Procedure Encounter Details Date Type Department Care Team (Latest Contact Info) Description 07/08/2020 2:30 PM EDT Procedure visit Ophthalmology at [facility] [place] [address] Bridget Dominguez MD [facility] [place] [place] [address] Proliferative diabetic retinopathy of both eyes without [...] this encounter Patient Instructions * Patient Instructions* Sarah Pope - 07/08/2020 2:30 PM EDT Today you had your right [...] about driving: We always recommend having a truck driver supervisor on the day you get an injection. [...] Normal and Not Expected side effects: Call [phone] (Eye Clinic) DAY or NIGHT, HOLIDAY or [...] PM EDT Tech Visit [place] [address] Marguerite Macias 12/19/2023 3:00 PM EDT Office Visit [place] [address] Gardenia Golden APRN [facility] [place] [address] 01/29/2024 1:[address] [place] [address] César Escobar MD [facility] [place] [address] 01/29/2024 2:30 PM EDT Office [place] [address] César Escobar MD [facility] [place] [address] documented as of this encounter Procedures Procedure Name Priority Date/Time Associated Diagnosis Comments INTRAVITREAL INJECTION PHARMACOLOGIC AGENT - OD - RIGHT EYE Routine 07/09/2020 8:11 AM EDT 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 documented in this encounter Results * Intravitreal Injection Pharmacologic Agent - OD - Right Eye (07/09/2020 8:11 AM EDT) Anatomical Region Laterality Modality Other Narrative 07/09/2020 8:11 AM EDT Pre Operative Diagnosis: Diabetic Macular Edema - Diabetic Retinopathy Post Operative Diagnosis: Diabetic Macular Edema - Diabetic Retinopathy Procedure: Intravitreal injection of Avastin 1.25 mg Right Eye Assist: Special Education Paraprofessional Anesthesia: Topical Proparacaine and topical 4% Lidocaine Complications: None Procedure: The patient was taken to the minor treatment suite where the patient was reidentified using name and birthdate as critical identifiers. The correct eye as the operative site was reidentified by a preplaced site bill, and the consent form was actively reviewed by the medical assistant float and the surgeon. The right eye was prepped including instillation of Betadine 5% into the right cul de sac for 5 minutes, facial prep with ophthalmic Betadine and placement of a lid speculum. The surgeon performed hand washing preoperatively, used gloves, and wore a face mask or used no talking technique during the procedure, as did the surgical manager. After topical anesthesia of the injection site [...] call the Eye Clinic or Eye Doctor litigation associate, should they develop pain in the [...] 1.25 mg, Intravitreal, ONCE, 1 dose, On Mon07/08/20 at 1615, For ophthalmic use only. Syringe contains 0.1 mL of overfill , Routine Given 07/08/2020 4:15 PM EDT 1.25 mg Right Eye documented in this encounter Care Teams Wheel Cleaner Relationship Specialty Start Date End Date Shirley Yu MD [address] [place] [address] PCP - General 11/19/14 documented as of this encounter
--- OUTSIDE RECORDS SUMMARY | 2023-12-13 18:23 | XMS_ITS | Encounter Summary ---
Author Organization [facility] Address [facility] [place] [address] Care Team Providers Care Caser Shoe Parts Name Role Phone Shirley Yu MD Primary Care Provider [phone] Encounter Details Date Type Department Care Team (Late st Contact Info) Description 02/26/2020 11:30 AM EST Office Visit [place] [address] Jaxon Fontaine MD [facility] [place] [address] PVD (peripheral vascular disease); Bilateral carotid artery stenosis; S/P bypass graft of extremity Social History [...] Sign Reading Time Taken Comments Blood Pressure 182/57 02/26/2020 11:34 AM EST Pulse 68 02/26/2020 11:34 AM EST Temperature - - Respiratory Rate - - Oxygen Saturation - - Inhaled Oxygen Concentration - - Weight - - Height 170.2 cm (5' 7) 02/26/2020 11:34 AM EST reported Body Mass Index - - documented in this encounter Progress Notes * Jaxon Fontaine MD - 02/26/2020 11:30 AM EST Vascular Surgery Clinic Visit February 26, 2020 CC: Patient is a 59 y.o. female who is here for follow up of carotid stenosis and PVD. 2000 L CEA (Dr Fong) 2004 R CEA (Dr Avendano) ?? 2007 R fem-AK-pop bypass with GSV (Dr Avendano) 2012 L EIA stent (8x60 SE p7), RLE vein graft CLUB LICENSEE (Dr Avendano) ?? 04/27/18 R RN REHAB/proximal graft and distal graft/pop CLUB LICENSEE (6mm and 5mm balloons) 02/04/19 Redo R femoral endarterectomy/profundaplasty, revision of proximal vein graft c/b wound breakdown requiring I&D ?? Presents for scheduled follow up visit. Doing well at home without any claudication,??rest pain or non-healing wounds. Denies any symptoms in LLE. ?? No symptoms concerning for stroke, TIA, or amaurosis fugax. ?? ROS is negative for history of CAD, UT, CP, or SOB. Has DM, on??insulin pump. Is a past smoker, having quit in??2015. ?? PMH:??HTN, HLD, DM, hyperthyroidism, RLL wedge resection for pulmonary granuloma 06/25,??GINGER/BSO '02 All:??sulfa, PCN Meds include:??asa, pradaxa, coreg, losartan, zocor, protonix, synthroid, insulin, neurontin, celexa Tob:??quit 2014 FHx:??neg for coagulopathy ?? Physical Exam: On exam,??she??is in NAD, RRR, CTA B, Abd soft/NT/ND. Right groin incision healed. Palpable pedal pulses on the right, none on the left. No open lesions on either foot. Neuro non-focal. ?? Labs:?? Skein Bleacher (03/01/19):??1.83 Lipids (10/14/14):??TC 160, HDL 78 HbA1C (01/25/18):??8.4 Imaging studies: I have personally reviewed the following imaging studies. RLE graft duplex (02/26/20): Findings: Right Fem-Pop AK SEGMENT ? PSV [...] 102 ?0 ??Popliteal, Above Knee Right ?? SHEFALI (02/26/20): 1.01/0.58 A/P: 59yo female s/p B CEAs with known asymptomatic recurrent moderate left carotid stenosis and PVD s/p multiple interventions as above, most recently s/p redo R femoral endarterectomy and vein graft revision. No significant change in R RN REHAB PSV compared to last study and without any associated symptoms or change in SHEFALI. Will continue to follow. ?? -con't asa, pradaxa, and statin -con't smoking cessation -regular exercise -f/u 6mo with carotid duplex, RLE graft duplex and SHEFALI Jaxon Fontaine MD documented in this encounter Plan of Treatment Upcoming Encounters Date Type Department Care Team (Late st Contact Info) Description 12/19/2023 1:00 PM EDT Tech Visit Vascular Lab at [place] [phone] Marguerite Macias 12/19/2023 3:00 PM EDT Office Visit [place] [address] Gardenia Golden, INSURANCE FOLLOW UP REP [facility] [address] 01/29/2024 1:[address] [place] [address] César Escobar MD [facility] [place] [place] [address] 01/29/2024 2:30 PM EDT Office Visit [place] [address] César Escobar MD [facility] [place] [address] documented as of this encounter Results * Unilat Bypass Graft Assess (08/14/2020 12:36 PM EDT) Pathologist [facility] VB Text Report Department: Vascular Surgery Lab Patient: [id number] (JENNIFER SNYDER) CPT: 66275 ICD10: Z95.828;I77.1; I73.9 Referring Physician: JAXON FONTAINE [...] Text Report Department: Vascular Surgery Lab Patient: [id number] (JENNIFER SNYDER) CPT: 99393 ICD10: I73.9;Z95.828;I 77.1 Referring Physician: JAXON FONTAINE MD ?? Phone: Indications: ??F/U R RN REHAB-AK pop bypass graft, ? change in ABIs [...] ?? Dorsalis Pedis (Ankle) Artery ?75 ?0.48 ??[place]-Biphasic ? Posterior Tibial (Ankle) Artery ??80 ?0.51 ??[place]-Biphasic ? Great Toe ?51 ? 0.32 ?? [...] Jaxon Fontaine MD VASCULAR ORDERABLES VASCUBASE * Carotid Duplex, Bilateral (08/14/2020 12:36 PM EDT) VB Text Report Department: Vascular Surgery Lab Patient: [id number] (JENNIFER SNYDER) CPT: 45293 ICD10: I65.23 Referring Physician: JAXON FONTAINE MD [...] status documented in this encounter Care Teams Caser [employer] Parts Relationship Specialty Start Date End Date Shirley Yu MD [address] [place] [address] PCP - General 11/19/14 documented as of this encounter
--- OUTSIDE RECORDS SUMMARY | 2023-12-13 18:23 | XMS_ITS | Encounter Summary ---
Author Organization [facility] [place] [address] Care Team Providers Care Orthopaedic Technologist Name Role Phone Shirley Yu MD Primary Care Provider [phone] Reason for Visit * Reason Onset Date Comments Bumped Appointment 01/31/2020 Encounter Details Date Type Department Care Team (Late st Contact Info) Description 01/31/2020 Telephone Ophthalmology at [facility] [place] [address] Bridget Dominguez MD [facility] [place] [address] Bumped Appointment Social History Tobacco Use Types Packs/Day [...] encounter Miscellaneous Notes * Telephone Encounter - Ange Powell - 01/31/2020 9:07 AM EDT Scheduled * Telephone Encounter - Yoly Best - 01/31/2020 8:19 AM EDT LMOAM x 2 to reschedule 01/30 appointment with DM. Please reschedule to next available. documented in this encounter Plan of Treatment Upcoming Encounters Date Type Department Care Team (Late st Contact Info) Description 12/19/2023 1:00 PM EDT Tech Visit [place] [address] Marguerite Macias 12/19/2023 3:00 PM EDT Office Visit Vascular Surgery at [place] [phone] Gardenia Golden, LADARIUS [facility] [place] [address] 01/29/2024 1:[address] [place] [place] [address] César Escobar MD [facility] [place] [address] 01/29/2024 2:30 PM EDT Office [place] [address] César Escobar MD [facility] [place] [address] documented as of this encounter Visit Diagnoses Not on filedocumented in this encounter Care Teams Orthopaedic Technologist Relationship Specialty Start Date End Date Shirley Yu MD [address] [place] [address] PCP - General 11/19/14 documented as of this encounter
--- OUTSIDE RECORDS SUMMARY | 2023-12-13 18:23 | XMS_ITS | Encounter Summary ---
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, bilateral Avastin OD Procedures BEVACIZUMAB INJECTION TC BEVACIZUMAB, 10MG, INJECTION (AVASTIN) MINOR SURGERY Bridget Dominguez MD [facility] [place] [address] Bridget Dominguez MD [facility] [place] [address] Referral ID Status Reason Start Date Expiration Date Visits Re quested Visits Authorized [id number] Closed 09/24/2020 03/26/2021 6 6 Encounter Details Date Type Department Care Team (Latest Contact Info) Description 12/01/2020 9:15 AM EDT Procedure visit Ophthalmology at [facility] [place] [address] Bridget Dominguez MD [facility] [place] [address] Proliferative diabetic retinopathy of both eyes without [...] Instructions * Patient Instructions* Sarah Pope - 12/01/2020 9:15 AM EDT Today you had your right eye(s) [...] about driving: We always recommend having a delivery driver/customer service on the day you get an injection. [...] Normal and Not Expected side effects: Call [phone] (Eye Clinic) DAY or NIGHT, HOLIDAY or [...] PM EDT Tech [place] [address] Marguerite Macias 12/19/2023 3:00 PM EDT Office [place] [address] Gardenia Golden APRN [facility] [place] [address] 01/29/2024 1:[address] [place] [address] César Escobar MD [facility] [place] [place] [address] 01/29/2024 2:30 PM EDT Office [place] [address] César Escobar MD [facility] [place] [address] documented as of this encounter Procedures Procedure Name Priority Date/Time Associated Diagnosis Comments INTRAVITREAL INJECTION PHARMACOLOGIC AGENT - OD - RIGHT EYE Routine 12/01/2020 10:40 AM EDT 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 documented in this encounter Results * Intravitreal Injection Pharmacologic Agent - OD - Right Eye (12/01/2020 10:40 AM EDT) Anatomical Region Laterality Modality Other Narrative 12/01/2020 10:40 AM EDT Pre Operative Diagnosis: Diabetic Macular Edema - Diabetic Retinopathy Post Operative Diagnosis: Diabetic Macular Edema - Diabetic Retinopathy Procedure: Intravitreal injection of Avastin 1.25 mg Right Eye Assist: Textile Worker Anesthesia: Topical Proparacaine and topical 4% Lidocaine Complications: None Procedure: The patient was taken to the minor treatment suite where the patient was reidentified using name and birthdate as critical identifiers. The correct eye as the operative site was reidentified by a preplaced site bill, and the consent form was actively reviewed by the server service assistant and the surgeon. The right eye was prepped including instillation of Betadine 5% into the right cul de sac for 5 minutes, facial prep with ophthalmic Betadine and placement of a lid speculum. The surgeon performed hand washing preoperatively, used gloves, and wore a face mask or used no talking technique during the procedure, as did the medical surgical tech. After topical anesthesia of the injection site [...] call the Eye Clinic or Eye Doctor professional volleyball player, should they develop pain in the treated [...] 1.25 mg, Intravitreal, ONCE, 1 dose, On Mon12/01/20 at 1100, For ophthalmic use only. Syringe contains 0.1 mL of overfill , Routine Given 12/01/2020 11:00 AM EDT 1.25 mg Right Eye documented in this encounter Care Teams Local Delivery Driver Relationship Specialty Start Date End Date Shirley Yu MD [address] [place] [address] PCP - General 11/19/14 documented as of this encounter
--- OUTSIDE RECORDS SUMMARY | 2023-12-13 18:23 | XMS_ITS | Encounter Summary ---
[place] [address] Care Team Providers Care Barrel Polisher Inside Name Role Phone Shirley Yu MD Primary Care Provider [phone] Encounter Details Date Type Department Care Team (Late st Contact Info) Description 09/28/2020 Orders Only [place] [address] Lulu Monroy, TAMEKA PVD (peripheral vascular disease); S/P bypass graft [...] PM EDT Tech [place] [address] Marguerite Macias 12/19/2023 3:00 PM EDT Office [place] [address] Gardenia Golden APRN [facility] [place] [address] 01/29/2024 1:[address] [place] [address] César Escobar MD [facility] [place] [address] 01/29/2024 2:30 PM EDT Office [place] [address] César Escobar MD [facility] [place] [address] documented as of this encounter Visit Diagnoses Diagnosis PVD (peripheral vascular disease) Peripheral vascular disease, unspecified S/P bypass graft of extremity Other postprocedural status Bilateral carotid artery stenosis Occlusion and stenosis of multiple and bilateral precerebral arteries without mention of cerebral infarction documented in this encounter Care Teams Barrel Polisher Inside Relationship Specialty Start Date End Date Shirley Yu MD [address] [place] [address] PCP - General 11/19/14 documented as of this encounter
--- OUTSIDE RECORDS SUMMARY | 2023-12-13 18:23 | XMS_ITS | Encounter Summary ---
[place] [address] Care Team Providers Care Band Booker Name Role Phone Shirley Yu MD Primary Care Provider [phone] Encounter Details Date Type Department Care Team (Late st Contact Info) Description 10/24/2019 10:00 AM EDT Tech [place] [address] Elizabeth Arroyo, RVT Bilateral carotid artery stenosis; PVD (peripheral vascular disease) Social History Tobacco [...] PM EDT Tech [place] [address] Marguerite Macias 12/19/2023 3:00 PM EDT Office [place] [address] Gardenia Golden APRN [facility] [place] [address] 01/29/2024 1:[address] [place] [address] César Escobar MD [facility] [place] [address] 01/29/2024 2:30 PM EDT Office [place] [address] César Escobar MD [facility] THORACIC SURGERY [place], [place] [id number] documented as of this encounter Procedures Procedure Name Priority Date/Time Associated Diagnosis Comments UNILATERAL BYPASS GRAFT ASSESS Routine 10/24/2019 10:06 AM EDT PVD (peripheral vascular disease) SHEFALI, LEGS, MULTIPLE LEVELS Routine 10/24/2019 10:06 AM EDT PVD (peripheral vascular disease) CAROTID DUPLEX, BILATERAL Routine 10/24/2019 10:06 AM EDT Bilateral carotid artery stenosis documented in this encounter Results * SHEFALI, legs, multiple levels (10/24/2019 10:06 AM EDT) Pathologist [facility] Text Report Department: Vascular Surgery Lab Patient: [id number] (JENNIFER SNYDER) CPT: 48826 ICD10: I73.9;I70.213 Referring Physician: JAXON FONTAINE MD ?? Phone: Indications: PVD, Right Fem-AK popliteal BPG, ? progression Diabetes mellitus: Yes ICD10 Diagnosis Code: I73.9, I70.213 Findings: Right ?Pressure (mm Hg) ?? SHEFALI ??Waveform ?TBI ?? Brachial Artery ?156 ? Dorsalis Pedis (Ankle) Artery ?153 ? 0.98 ??Triphasic ? Posterior Tibial (Ankle) Artery ??160 ? 1.03 ??Triphasic ? Great Toe ?96 ? 0.62 ?? Left ? Pressure (mm Hg) ?? SHEFALI ??Waveform ?TBI ?? Brachial Artery ?152 ? Dorsalis Pedis (Ankle) Artery ?85 ?0.54 ??Monophasic ? Posterior Tibial (Ankle) Artery ??92 ?0.59 ??[place]ton-Biphasic ? Great Toe ?47 ? 0.30 ?? Interpretation: RIGHT: No significant lower extremity arterial occlusive disease identified at rest to the level of the distal calf. Normal ankle/brachial pressure ratios and ankle Doppler waveforms. Toe/brachial index lower than ankle/brachial index indicates presence of mild arterial occlusive disease in the foot. No significant change compared to previous exam. LEFT: Moderate lower extremity arterial occlusive disease to the level of the distal calf. Toe/brachial index lower than ankle/brachial index indicates presence of moderately severe arterial [...] 0.99(+.09) 0.58(+.02) ---- ??0.98(-.05) 1.04(+.05) 0.62(+.04) ---- Current ? 0.98( .00) 1.03(-.01) 0.62( .00) ---- Date ?LEFT DP ?LEFT PT ?LT [...] 0.36(-.01) ---- ??0.56(+.03) 0.60(+.06) 0.36( .00) ---- Current ? 0.54(-.02) 0.59(-.01) 0.30(-.06) ---- Electronically Signed by: JAYLEN MAGANA on 2019-10-28 01:42:39 PM [facility] VB Text Report End of Report [facility] 10/24/2019 10:0 6 AM EDT Jaxon Fontaine MD VASCULAR ORDERABLES [facility] * Unilat Bypass Graft Assess (10/24/2019 10:06 AM EDT) VB Text Report Department: Vascular Surgery Lab Patient: [id number] (JENNIFER SNYDER) CPT: 92812 ICD10: I73.9;I70.211 Referring Physician: JAXON FONTAINE MD ?? Phone: Indications: Right METAPHYSICIAN - AK popliteal artery bypass graft, ? patency/stenos is ICD10 Diagnosis Code: I73.9, I70.211 Findings: Right Fem-Pop AK SEGMENT ? PSV [...] ? 72 ?0 ? Right Distal Graft ?75 ?3 ? Outflow Anastomosis, Right ?92 ?0 ? Right Outflow Artery (Graft) ? 188 ?0 ??Popliteal, Mid Right ? Interpretation : RIGHT: Patent common femoral artery to above knee popliteal artery bypass graft with elevated velocities (305 cm/sec) at the inflow proximal common femoral artery consistent with >50% stenosis. This is a new finding compared to previous exam (04/01/2019). Velocities at the outflow popliteal artery are slightly elevated, as seen on previous exam (179 cm/sec; 04/01/2019).Th e remainder of the bypass graft is widely patent with no evidence of stenosis. Electronically Signed by: JAXON FONTAINE MD on 2019-10-24 01:12:26 PM [facility] VB Text Report End of Report [facility] 10/24/2019 10:0 6 AM EDT Jaxon Fontaine MD VASCULAR ORDERABLES [facility] * Carotid Duplex, Bilateral (10/24/2019 10:06 AM EDT) VB Text Report Department: Vascular Surgery Lab Patient: [id number] (JENINFER SNYDER) CPT: 86218 ICD10: I65.23 Referring Physician: JAXON FONTAINE MD ?? Phone: Indications: Patient with known carotid disease, hx bilateral CEA, ? progression. ICD10 Diagnosis Code: I65.23 Findings: ICA Proximal, Right ? PSV (cm/s): 108 ? EDV (cm/s): 37 ? ICA/CCA: 1.3 ? Plaque Structure: Echogenic ? Plaque Surface: Irregular ? %Stenosis: <15% ICA Distal, Right ? PSV (cm/s): 106 ? EDV (cm/s): 32 ? ICA/CCA: 1.2 CCA Distal, Right ? PSV (cm/s): 85 ? EDV (cm/s): 15 ? %Stenosis: Minimal CCA Proximal, Right ? PSV (cm/s): 82 ? EDV (cm/s): 11 External Carotid Artery, Right ? PSV (cm/s): 103 ? EDV (cm/s): 0 ? %Stenosis: <50% Vertebral, Right ? PSV (cm/s): 77 ? EDV (cm/s): 14 ? Direction of Flow: Antegrade ICA Proximal, Left ? PSV (cm/s): 384 ? EDV (cm/s): 101 ? ICA/CCA: 3.7 ? Plaque Structure: Echogenic ? Plaque Surface: Irregular ? %Stenosis: 50-79% ICA Distal, Left ? PSV (cm/s): 92 ? EDV (cm/s): 39 ? ICA/CCA: 0.9 CCA Distal, Left ? PSV (cm/s): 105 ? EDV (cm/s): 24 ? %Stenosis: <50% CCA Proximal, Left ? PSV (cm/s): 94 ? EDV (cm/s): 18 External Carotid Artery, Left ? PSV (cm/s): 226 ? EDV (cm/s): 0 ? %Stenosis: >50% Vertebral, Left ? PSV (cm/s): 95 ? EDV (cm/s): 24 ? Direction of Flow: Antegrade Interpretation: RIGHT: There is irregular plaque in the proximal internal carotid artery causing <15% stenosis when compared to the more distal internal carotid artery. The bifurcation level is in the mid neck. No identifiable change when compared to the previous exam. LEFT: There is smooth plaque in the common carotid artery causing <50% stenosis by B-mode. There is bulky irregular plaque in the proximal internal carotid artery causing 50-79% stenosis when compared to the more distal internal carotid artery. Increase in peak systolic velocity in the proximal ICA from 326 cm/s previously to 384 cm/s on today's exam. Calcification of the carotid bifurcation prohibits thorough interrogation by Doppler: unable to exclude more significant stenosis. The bifurcation level is in the mid neck. Progression of ICA stenosis when compared to the previous exam. Vertebral Artery Data: Patent vertebral arteries with [...] ?1.70 ? 50-69% ? 326 ?? 3.70 Current Exam ? <15% ? 108 ?? 1.30 ? 50-79% ? 384 ?? 3.70 Electronically Signed by: JAYLEN MAGANA on 2019-10-28 02:45:52 PM [facility] VB Text Report End of Report [facility] 10/24/2019 10:0 6 AM EDT Jaxon Fontaine MD VASCULAR ORDERABLES [facility] documented in this encounter Visit Diagnoses Diagnosis Bilateral carotid artery stenosis Occlusion and stenosis of multiple and bilateral precerebral arteries without mention of cerebral infarction PVD (peripheral vascular disease) Peripheral vascular disease, unspecified documented in this encounter Care Teams Band Booker Relationship Specialty Start Date End Date Shirley Yu MD [address] [place] [address] PCP - General 11/19/14 documented as of this encounter
--- OUTSIDE RECORDS SUMMARY | 2023-12-13 18:23 | XMS_ITS | Encounter Summary ---
[place] [address] Care Team Providers Care Transportation Coordinator Name Role Phone Shirley Yu MD Primary Care Provider [phone] Encounter Details Date Type Department Care Team (Late st Contact Info) Description 06/26/2020 Telephone [place] [address] Benita Akbar Social History Tobacco Use Types Packs/Day Years [...] encounter Miscellaneous Notes * Telephone Encounter - Benita Campos - 06/26/2020 12:42 PM EDT [id number] to schedule appointment from recall documented in this encounter Plan of Treatment Upcoming Encounters Date Type Department Care Team (Late st Contact Info) Description 12/19/2023 1:00 PM EDT Tech [place] [phone] Marguerite Macias 12/19/2023 3:00 PM EDT Office [place] [address] [facility] [place] [address] 01/29/2024 1:[address] Scan at [place] [phone] [facility] [place] [address] 01/29/2024 2:30 PM EDT Office [place] [phone] [facility] [place] [address] documented as of this encounter Visit Diagnoses Not on filedocumented in this encounter Care Teams Transportation Coordinator Relationship Specialty Start Date End Date Shirley Yu MD [address] [place] [address] PCP - General 11/19/14 documented as of this encounter
--- OUTSIDE RECORDS SUMMARY | 2023-12-13 18:23 | XMS_ITS | Encounter Summary ---
Author Organization [facility] [place] [address] Care Team Providers Care Second Cutter Name Role Phone Shirley Yu MD Primary Care Provider [phone] Reason for Visit * Reason Comments PDR Encounter Details Date Type Department Care Team (Latest Contact Info) Description 06/04/2020 10:00 AM EST Office Visit Ophthalmology at [facility] [place] [address] Bridget Dominguez MD [facility] [place] [address] Proliferative diabetic retinopathy of both eyes without [...] Progress Notes * Bridget Dominguez MD - 06/04/2020 10:00 AM EST ASSESSMENT/PLAN: 1. 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 Visual Acuity Visual Acuity (Snellen - Linear) Right Left Dist sc 20/40 20/20 Dist ph sc NI Near cc 20/30 20/20 +2.75 OTC readers 1. PDR s/p PRP OU with DME OD Today's fundoscopic exam and multimodal imaging show that the retinopathy is inactive proliferativeOU with visually significant macular edema OD Recommended good blood sugar control. The findings communicated to the patient's PCP. Recommended observation with regular eye exams. Treatment with Avastin OD was discussed And agreed to proceed AAO video shown/ASRS fact sheet given Discussed that the primary goal of the aVEGFs treatments is the maintenance of the existing vision while some improvement is not rare. Discussed the warning symptoms of endophthalmitis (pain, blurredvision, light sensitivity), the risk for cataracts, retinal tear, retinal detachment, vitreous hemorrhage. Also emphasized that the injections only work for a limited number of weeks and the patientsusually require more treatments in the future given that it is a chronic condition. 2. Pseudophakia OU - monitor Follow up 4-5 weeks for [...] PM EDT Tech [place] [phone] Marguerite Macias 12/19/2023 3:00 PM EDT Office [place] [address] Gardenia Golden APRN [facility] [place] [address] 01/29/2024 1:[address] [place] [address] César Escobar MD [facility] [place] [address] 01/29/2024 2:30 PM EDT Office Visit [place] [phone] César Escobar MD [facility] [place] [address] documented as of this encounter Procedures Procedure Name Priority Date/Time Associated Diagnosis Comments OCT RETINA - OU - BOTH EYES Routine 06/04/2020 11:54 AM EST 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 Scan locations included subfoveal. Progression has worsened. Findings include abnormal foveal contour, intraretinal fluid. Left Eye Quality was good. Scan locations included subfoveal. Progression has been stable. Findings include abnormal foveal contour. 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 documented in this encounter Care Teams Second Cutter Relationship Specialty Start Date End Date Shirley Yu MD [address] [place] [address] PCP - General 11/19/14 documented as of this encounter
--- OUTSIDE RECORDS SUMMARY | 2023-12-13 18:23 | XMS_ITS | Encounter Summary ---
[place] [address] Care Team Providers Care Dry Kiln Feeder Name Role Phone Shirley Yu MD Primary Care Provider [phone] Encounter Details Date Type Department Care Team (Latest Contact Info) Description 07/21/2020 12:30 PM EDT Laboratory Appointment Lab [address] [place] [address] CKD (chronic kidney disease) stage 3, GFR 30-59 ml/min; Stage 3b chronic kidney disease Social History Tobacco Use Types Packs/Day Years [...] PM EDT Tech Visit [place] [address] Marguerite Macias 12/19/2023 3:00 PM EDT Office [place] [address] Gardenia Golden APRN [facility] [place] [address] 01/29/2024 1:[address] [place] [address] César Escobar MD [facility] DR THORACIC SURGERY [place], [place] [id number] 01/29/2024 2:30 PM EDT Office [place] [address] César Escobar MD [facility] [place] [address] documented as of this encounter Procedures Procedure Name Priority Date/Time Associated Diagnosis Comments URINALYSIS MICROSCOPIC EXAM Routine 07/21/2020 12:50 PM EDT HC CREATININE - NON BLOOD Routine 07/21/2020 12:50 PM EDT Stage 3b chronic kidney disease HC CREATININE - NON BLOOD Routine 07/21/2020 12:50 PM EDT Stage 3b chronic kidney disease URINALYSIS WITH REFLEX CULTURE Routine 07/21/2020 12:50 PM EDT HC PARATHYROID HORMONE(PTH INTACT Routine 07/21/2020 12:47 PM EDT CKD (chronic kidney disease) stage 3, GFR 30-59 ml/min HEMOGRAM Routine 07/21/2020 12:47 PM EDT Stage 3b chronic kidney disease DIFFERENTIAL, AUTOMATED Routine 07/21/2020 12:47 PM EDT Stage 3b chronic kidney disease HC VITAMIN D TOTAL-25 HYDROXY Routine 07/21/2020 12:47 PM EDT Stage 3b chronic kidney disease HC CBC,PLT & AUTO DIFF Routine 07/21/2020 12:47 PM EDT Stage 3b chronic kidney disease HC PHOSPHORUS, SERUM Routine 07/21/2020 12:47 PM EDT CKD (chronic kidney disease) stage 3, GFR 30-59 ml/min HC ALBUMIN, SERUM Routine 07/21/2020 12: 47 PM EDT CKD (chronic kidney disease) stage 3, GFR 30-59 ml/min BASIC METABOLIC PANEL Routine 07/21/2020 12:47 PM EDT CKD (chronic kidney disease) stage 3, GFR 30-59 ml/min documented in this encounter Results * (ABNORMAL) Urinalysis Microscopic Exam (07/21/2020 12:50 PM EDT) RBC, Urine 2 0 - 4 /HPF [facility] WBC, Urine 1 0 - 5 /HPF [facility] Bacteria, Urine Rare(A) None /HPF [facility] Squamous Epithelial Cells Raw Data, Urine 4 <=4 /HPF [facility] Hyaline Casts, Urine 1 0 - 2 /LPF [facility] Urine specimen (specimen) Urine / Unknown 07/21/2020 12:50 PM EDT 07/21/2020 3:20 PM EDT Narrative Resulting Agency Comment Spec In Lab Kalin Bourgeois MD URINE ORDERABLES [facility] [place] [address] * (ABNORMAL) Urinalysis with reflex Culture (07/21/2020 12:50 PM EDT) Glucose, Urine Dipstick Negative Negative mg/dL [facility] Protein, Urine Dipstick 30(A) Negative mg/dL [facility] Bilirubin, Urine Dipstick Negative Negative mg/dL [facility] Comment: Clinical correlation required for positive Urine Bilirubin results as false positive may occur with some drugs and drug related products. If a false positive is suspected a serum total bilirubin should be considered if clinically indicated. Urobilinogen, Urine Dipstick Normal Normal mg/dL [facility] pH, Urn (dipstick) 6.5 5.0 - 8.0 [facility] Blood, Urine Dipstick Negative Negative mg/dL [facility] Ketone, Urine Dipstick Negative Negative mg/dL [facility] Nitrite, Urine Dipstick Negative Negative [facility] Leukocytes, Urine Dipstick Negative Negative [facility] Appearance, Urine Dipstick Cloudy(A) Clear [facility] Specific [place] Urine Automated 1.010 1.006 - 1.030 [facility] Color, Urine Dipstick Yellow Yellow [facility] Reflex to Culture No [facility] Urine specimen (specimen) Urine / Unknown 07/21/2020 12:50 PM EDT 07/21/2020 3:20 PM EDT Narrative Resulting Agency Comment Spec In Lab Kalin Bourgeois MD URINE ORDERABLES [facility] [place] [address] * (ABNORMAL) U Albumin/Cre Ratio (07/21/2020 12:50 PM EDT) Albumin / Creatinin Ratio, Urine 327(H) 0 - 29 mcg/mg Cr [facility] Comment: Reference Ranges: <30 mcg/mg: Normal [...] 2, 357? 362 Albumin, Urine 203.0 mg/L [facility] Creatinine, Urine 62 mg/dL [facility] Urine specimen (specimen) 07/21/2020 12:50 PM EDT 07/21/2020 12:56 PM EDT Narrative Resulting Agency Comment Spec In Lab Hussain Rader MD URINE ORDERABLES Performing Organization Address City/[facility]/ZIP Co de Phone Number [facility] [place] [address] * (ABNORMAL) Protein/Creatinine Ratio, urine (07/21/2020 12:50 PM EDT) Creatinine, Urine 62 mg/dL [facility] Protein, Urine 33(H) 0 - 12 mg/dL [facility] Protein / Creatinine Ratio, Urine 0.5 ratio [facility] Urine specimen (specimen) 07/21/2020 12:50 PM EDT 07/21/2020 12:56 PM EDT Narrative Resulting Agency Comment Spec In Lab Hussain Rader MD URINE ORDERABLES Performing Organization Address City/[facility]/ZIP Co de Phone Number [facility] [place] [address] * Differential, Automated (07/21/2020 12:47 PM EDT) Neutrophil % 62.7 % [facility] Neutrophil Absolute 2.99 1.70 - 6.10 x10(3)/[facility] Lymph % 24.6 % [facility] Lymphocytes Abs 1.2 0.9 - 3.2 x10(3)/[facility] Monocyte % 7.8 % [facility] Monocyte Abs 0.4 0.3 - 0.9 x10(3)/[facility] Eos % 3.6 % [facility] Eosinophils Abs 0.2 0.0 - 0.4 x10(3)/[facility] Basophil % 1.1 % [facility] Baso Absolute 0.0 0.0 - 0.1 x10(3)/[facility] Immature Gran % 0.20 % [facility] Comment: Immature granulocytes(IG's)percentage and absolute count will include metamyelocytes, myelocytes, and promyelocytes. Blood smears from CBCs yielding IG's will be scanned manually for concordance. If this scan disagrees with the automated IG or if promyelocytes are noted, a manual differential will be performed. Immature Gran Absolute 0.01 0.00 - 0.04 x10(3)/[facility] Blood specimen (specimen) 07/21/2020 12:47 PM EDT 07/21/2020 12:59 PM EDT Narrative Resulting Agency Comment Spec In Lab Kalin Bourgeois MD HEMATOLOGY ORDERABLE S [facility] [place] [address] * (ABNORMAL) Hemogram (07/21/2020 12:47 PM EDT) White Blood Cell 4.8 4.0 - 9.5 x10(3)/mc L [facility] Red Blood Cell 3.88(L) 4.00 - 5.21 x10(6)/mc L [facility] Hemoglobin 11.9 11.7 - 15.5 gm/dL [facility] Hematocrit 37.1 35.7 - 45.8 % [facility] Mean Cell Volume 95.6(H) 82.6 - 94.4 fL [facility] Mean Cell Hemoglobin 30.7 27.1 - 32.0 pg [facility] Mean Cell Hemoglobin Concentration 32.1 31.7 - 35.0 gm/dL [facility] Platelet 191 145 - 357 x10(3)/mc L [facility] RDW Standard Deviation 53.9(H) 37.0 - 46.0 fL [facility] RDW coefficient of variation 15.3(H) 11.5 - 14.1 % [facility] Mean Platelet Volume 9.9 7.6 - 12.9 fL [facility] NRBC% auto 0.0 % [facility] NRBC Absolute 0.000 0.000 - 0.000 x10(3)/mc L [facility] Blood specimen (specimen) 07/21/2020 12:47 PM EDT 07/21/2020 12:59 PM EDT Narrative Resulting Agency Comment Spec In Lab Kalin Bourgeois MD HEMATOLOGY ORDERABLE S [facility] [place] [address] * (ABNORMAL) Vitamin D, 25-Hydroxy (07/21/2020 12:47 PM EDT) Vitamin D Total 25 OH 20(L) 21 - 100 ng/mL [facility] Vit D Interp Deficient [facility] Blood specimen (specimen) 07/21/2020 12:47 PM EDT 07/21/2020 12:59 PM EDT Narrative Resulting Agency Comment Spec In Lab Hussain Rader MD CHEMISTRY ORDERABLES [facility] [place] [address] * Albumin Level (07/21/2020 12:47 PM EDT) Albumin 3.9 3.2 - 5.2 gm/dL [facility] Blood specimen (specimen) 07/21/2020 12:47 PM EDT 07/21/2020 12:59 PM EDT Narrative Resulting Agency Comment Spec In Lab Hussain Rader MD CHEMISTRY ORDERABLES [facility] [place] [address] * (ABNORMAL) Basic Metabolic Panel (non-fasting) (07/21/2020 12:47 PM EDT) Glucose 179 65 - 199 mg/dL [facility] Comment:Diabetes: >=200 mg/d L plus symptoms Blood Urea Nitrogen 24(H) 8 - 18 mg/dL [facility] Creatinine 1.65(H) 0.70 - 1.20 mg/dL [facility] Sodium 134(L) 135 - 145 mmol/L [facility] Potassium 5.8(H) 3.5 - 5.0 mmol/L [facility] Comment: Please note: ??Patients with WBC >100,000 may have falsely elevated Potassium levels. ??For accurate Potassium quantification in these patients send serum separator tube (gold top) for subsequent determinations. ??Contact the Clinical Chemistry Laboratory if there are any questions. Chloride 99 98 - 107 mmol/L [facility] Carbon Dioxide 27 22 - 31 mmol/L [facility] Anion Gap 8 5 - 15 mmol/L [facility] Calcium 8.9 8.5 - 10.5 mg/dL [facility] Est Glomerular Filtration Rate 33(L) >=60 mL/min/1. 73 m?? [facility] Comment: This patient? s estimated glomerular [...] Rader MD CHEMISTRY ORDERABLES Performing Organization Address City/[facility]/ZIP Co de Phone Number [facility] [place] [address] * Phosphorus (07/21/2020 12:47 PM EDT) Phosphorus 4.2 2.5 - 4.5 mg/dL [facility] Blood specimen (specimen) 07/21/2020 12:47 PM EDT 07/21/2020 12:59 PM EDT Narrative Resulting Agency Comment Spec In Lab Hussain Rader MD CHEMISTRY ORDERABLES Performing Organization Address [facility] Co de Phone Number [facility] [place] [address] * (ABNORMAL) PTH (07/21/2020 12:47 PM EDT) Parathyroid Hormone 127(H) 15 - 65 pg/mL [facility] Blood specimen (specimen) 07/21/2020 12:47 PM EDT 07/21/2020 12:59 PM EDT Narrative Resulting Agency Comment Spec In Lab Hussain Rader MD CHEMISTRY ORDERABLES Performing Organization Address [facility] Co de Phone Number [facility] [place] [address] documented in this encounter Visit Diagnoses Diagnosis CKD (chronic kidney disease) stage 3, GFR 30-59 ml/min Chronic kidney disease, Stage III (moderate) Stage 3b chronic kidney disease documented in this encounter Care Teams Dry Kiln Feeder Relationship Specialty Start Date End Date Shirley Yu MD [address] [place] [address] PCP - General 11/19/14 documented as of this encounter
--- OUTSIDE RECORDS SUMMARY | 2023-12-13 18:23 | XMS_ITS | Encounter Summary ---
Author Organization [facility] [place] [address] Care Team Providers Care Tar And Ammonia Pump Operator Name Role Phone Shirley Yu MD Primary Care Provider [phone] Encounter Details Date Type Department Care Team (Late st Contact Info) Description 11/26/2019 Telephone [place] [address] César Escobar MD [facility] [place] [address] Social History Tobacco Use Types Packs/Day Years [...] encounter Miscellaneous Notes * Telephone Encounter - César Escobar MD - 11/26/2019 2:15 PM EDT Thoracic surgery telephone note I called Ms. Snyder to review the results of today's chest CT. The patient preferred a telephone encounter to an in person visit due to the travel burden from [place]. She has no new symptoms to report over the past 6 months, and is happy with her progress. A noncontrast chest CT was obtained today. This was obtained because of the patient's smoking history and the multiplicity of nodules despite the reassuring biopsy. Although all of her bilateral nodules appear persistent, none is increased in size and there are no new nodules apparent. Because of her smoking history (she smoked from the age of 14 to the age of 53, up to three quarters of a pack per day) I recommended that we repeat a chest CT next year for screening purposes Plan: Return to clinic in 1 year for noncontrast chest CT CÉSAR ESCOBAR MD documented in this encounter Plan of Treatment Upcoming Encounters Date Type Department Care Team (Late st Contact Info) Description 12/19/2023 1:00 PM EDT Tech Visit [place] [phone] Marguerite Macias 12/19/2023 3:00 PM EDT Office Visit [place] [phone] Gardenia Golden, LADARIUS [facility] [place] [address] 01/29/2024 1:[address] [place] [phone] César Escobar MD [facility] [place] [address] 01/29/2024 2:30 PM EDT Office Visit [place] [phone] César Escobar MD [facility] [place] [address] documented as of this encounter Visit Diagnoses Not on filedocumented in this encounter Care Teams Tar And Ammonia Pump Operator Relationship Specialty Start Date End Date Shirley Yu MD [address] [place] [address] PCP - General 11/19/14 documented as of this encounter
--- OUTSIDE RECORDS SUMMARY | 2023-12-13 18:23 | XMS_ITS | Encounter Summary ---
[place] [address] Care Team Providers Care Training Facilitator Name Role Phone Shirley Yu MD Primary Care Provider Encounter Details Date Type Department Care Team (Late st Contact Info) Description 07/10/2019 Telephone Nephrology [place] [address] Shirley Bolaños Social History Tobacco Use Types Packs/Day Years [...] encounter Miscellaneous Notes * Telephone Encounter - Shirley Bolaños - 07/10/2019 9:06 AM EDT LMOM for Pt to call our office regarding apt on 07/17/19 documented in this encounter Plan of Treatment Upcoming Encounters Date Type Department Care Team (Late st Contact Info) Description 12/19/2023 1:00 PM EDT Tech Visit V[place] [address] Marguerite Macias 12/19/2023 3:00 PM EDT Office Visit [place] [address] Gardenia Golden APRN [facility] [place] [address] 01/29/2024 1:[address] [place] [address] César Escobar MD [facility] DR THORACIC SURGERY [place], [place] [id number] 01/29/2024 2:30 PM EDT Office Visit [place] [phone] César Escobar MD [facility] [place] [address] documented as of this encounter Visit Diagnoses Not on filedocumented in this encounter Care Teams Training Facilitator Relationship Specialty Start Date End Date Shirley Yu MD [address] [place] [address] PCP - General 11/19/14 documented as of this encounter
--- OUTSIDE RECORDS SUMMARY | 2023-12-13 18:23 | XMS_ITS | Encounter Summary ---
[place] [address] Care Team Providers Care Mangle Tender [employer] Name Role Phone Shirley Yu MD Primary Care Provider [phone] Reason for Referral * Diagnostic Test (Routine) - Closed Specialty Diagnoses / Procedures Referred By Contac t Referred To Contact Radiology Diagnoses Pulmonary granuloma Procedures CT Chest wo Contrast (Generic) César Escobar MD [facility] [place] [address] [facility] [place] [address] Referral ID Status Reason Start Date Expiration Date V isits Requested Visits Authorized [id number] Closed Specialty Service Requested 04/29/2019 10/27/2020 1 1 Reason for Visit * Diagnostic Test (Routine) - Closed Specialty Diagnoses / Procedures Referred By Contac t Referred To Contact Radiology Diagnoses Pulmonary granuloma Procedures CT Chest wo Contrast (Generic) César Escobar MD [facility] [place] [address] [facility] [place] [address] Referral ID Status Reason Start Date Expiration Date V isits Requested Visits Authorized [id number] Closed Specialty Service Requested 04/29/2019 10/27/2020 1 1 Encounter Details Date Type Department Care Team (Latest Contact Info) Description 11/26/2019 1:47 PM EDT - 11/26/2019 11:59 PM EDT Hospital Encounter CT Scan at [facility] [place] [address] César Escobar MD [facility] [place] [address] Pulmonary granuloma Discharge Disposition: Home Social History Tobacco Use [...] Sig Dispensed Refills Start Date End Date Magnesium Oxide 500 mg magnesium tablet Take [...] Diabetic Supplies, Miscellan. Misc Form faxed to [employer] for pump supplies. 100 each 12 03/23/2015 losartan (COZAAR) 100 mg Tablet Take 50 mg by mouth daily. 08/11/2014 aspirin 81 mg EC tablet Take 81 mg by mouth daily. insulin lispro (HUMALOG) 100 unit/mL injection Inject 55-60 Units subcutaneously continuous. Via insulin pump insulin lispro (HumaLOG) Solution 24/7 01/07/2016 3 gabapentin (Neurontin) 300 mg Capsule Take 300 mg by mouth 3 times daily as needed. glucagon HCl (GLUCAGON, HUMAN RECOMBINANT,) 1 mg [...] EVERY DAY 90 tablet 3 03/14/2018 04/21/2022 simvastatin (ZOCOR) 40 mg Tablet Take 40 mg by mouth nightly. 12/13/2017 12/20/2021 citalopram (CELEXA) 40 mg Tablet Take 20 mg by mouth daily. 11/09/2016 07/08/2020 carvedilol (COREG) 3.125 mg Tablet Take 3.125 mg by mouth 2 times daily (with meals). 04/21/2022 Magnesium 250 mg Tab Take by mouth daily. 022 documented as of this encounter Plan of Treatment Upcoming Encounters Date Type Department Care Team (Late st Contact Info) Description 12/19/2023 1:00 PM EDT Tech [place] [address] Marguerite Macias 12/19/2023 3:00 PM EDT Office Visit [place] [address] Gardenia Golden, LADARIUS [facility] [place] [address] 01/29/2024 1:[address] [place] [address] César Escobar MD [facility] DR THORACIC SURGERY [place], [place] [id number] 01/29/2024 2:30 PM EDT Office Visit [place] [address] César Escobar MD [facility] [place] [address] documented as of this encounter Procedures Procedure Name Priority Date/Time Associated Diagnosis Comments CT CHEST WO CONTRAST (GENERIC) Routine 11/26/2019 2:00 PM EDT Pulmonary granuloma documented in this encounter Results * CT Chest wo Contrast (Generic) (11/26/2019 2:00 PM EDT) Anatomical Region Laterality Modality Chest Computed Tomogra phy Impressions 11/26/2019 5:11 PM EDT Note is made of bilateral subcentimeter indistinct nodularities in the upper lungs which are more conspicuous or new in comparison to the prior CT. Findings could represent an acute infectious/inflammatory process or organizing pneumonia, however, considering the patient's history of smoking any of these could possible be a malignancy. Continuous attention on follow-up is needed. Underlying lung emphysema is seen again. Innumerable bilateral calcified granulomata. I have personally reviewed the image(s) and the resident's interpretation and agree with the findings, Yuki Tomlinson at 11/26/2019 5:11 PM Thank you for letting us participate in the care of this patient. For questions regarding this report, please contact the number below. ? Narrative 11/26/2019 5:11 PM EDT EXAMINATION: CT CHEST WO CONTRAST (GENERIC) CLINICAL HISTORY: Granulomatous disorder, skin or subcutaneous tissue hx of wedge resections for multiple lung nodules for Multiple sclerotic granulomata, please eval for changes TECHNIQUE: 3.75mm thick axial contiguous sections were obtained through the chest via helical acquisition without intravenous contrast administration. Thin-section reconstructions as well as coronal and sagittal reformatted images were generated. COMPARISON: CT chest 04/29/2019 FINDINGS: Pulmonary parenchyma: Numerous subcentimeter interlobular and subpleural nodules. The largest nodules include a noncalcified 9 mm right lower lobe pulmonary nodule (series 4 image 53) and 10 mm left lower lobe pulmonary nodule (series 4 image 69), stable from previous CT chest exams back to 04/23/2018. Of note are bilateral upper lobe small indistinct nodules which are all subcentimeter in size and are new or more conspicuous than at the time of the prior exam (for example on the right series 5, image 127 and on the left series 5, image 108, 111, 127, 129). Airways: The airways are patent. Pleura: No pneumothorax or pleural effusion. Lymph nodes: No lymphadenopathy. Heart, pericardium, and great vessels: Normal cardiac size. Persistent severe coronary and aortic calcification. Other mediastinal structures: No significant findings. Lower neck: No significant findings. Upper abdomen: No significant findings. Body wall soft tissues: No significant findings. Skeletal structures: No significant findings. Procedure Note Yuki Iglesias MD - 11/26/2019 EXAMINATION: CT CHEST WO CONTRAST (GENERIC) CLINICAL HISTORY: Granulomatous disorder, skin or subcutaneous tissue hx of wedge resections for multiple lung nodules for Multiple sclerotic granulomata, please eval for changes TECHNIQUE: 3.75mm thick axial contiguous sections were obtained throughthe chest via helical acquisition without intravenous contrastadministration. Thin-section reconstructions as well as coronal and sagittal reformattedimages were generated. COMPARISON: CT chest 04/29/2019 FINDINGS: Pulmonary parenchyma: Numerous subcentimeter interlobular and subpleural nodules. The largest nodules include a noncalcified 9 mm right lowerlobe pulmonary nodule (series 4 image 53) and 10 mm left lower lobe pulmonarynodule (series 4 image 69), stable from previous CT chest exams back to04/23/2018. Of note are bilateral upper lobe small indistinct nodules which are all subcentimeter in size and are new or more conspicuous than at the time ofthe prior exam (for example on the right series 5, image 127 and on the leftseries 5, image 108, 111, 127, 129). Airways: The airways are patent. Pleura: No pneumothorax or pleural effusion. Lymph nodes: No lymphadenopathy. Heart, pericardium, and great vessels: Normal cardiac size. Persistentsevere coronary and aortic calcification. Other mediastinal structures: No significant findings. Lower neck: No significant findings. Upper abdomen: No significant findings. Body wall soft tissues: No significant findings. Skeletal structures: No significant findings. IMPRESSION Note is made of bilateral subcentimeter indistinct nodularities in theupper lungs which are more conspicuous or new in comparison to the prior CT.Findings could represent an acute infectious/inflammatory process or organizing pneumonia, however, considering the patient's history of smoking any ofthese could possible be a malignancy. Continuous attention on follow-up isneeded. Underlying lung emphysema is seen again. Innumerable bilateral calcified granulomata. I have personally reviewed the image(s) and the resident's interpretationand agree with the findings, Yuki Tomlinson at 11/26/2019 5:11 PM Thank you for letting us participate in the care of this patient. Forquestions regarding this report, please contact the number below. César Escobar MD IMG CT ORDERABLE S documented in this encounter Visit Diagnoses Diagnosis Pulmonary granuloma Postinflammatory pulmonary fibrosis documented in this encounter Care Teams Mangle Tender Cloth Relationship Specialty Start Date End Date Shirley Yu MD [address] [place] [address] PCP - General 11/19/14 documented as of this encounter
--- OUTSIDE RECORDS SUMMARY | 2023-12-13 18:23 | XMS_ITS | Encounter Summary ---
Author Organization [place] [address] Care Team Providers Care Drafter [employer] Name Role Phone Shirley Yu MD Primary Care Provider [phone] Reason for Referral * Diagnostic Test (Routine) - Closed Specialty Diagnoses / Procedures Referred By Dominik mcleod Referred To Contact Radiology Diagnoses Pulmonary granuloma Procedures CT Chest wo Contrast (Generic) César Escobar MD [facility] [place] [address] [facility] [place] [address] Referral ID Status Reason Start Date Expiration Date V isits Requested Visits Authorized [id number] Closed Specialty Service Requested 11/18/2020 02/16/2021 1 1 Encounter Details Date Type Department Care Team (Late st Contact Info) Description 11/02/2020 Orders Only [place] [address] Betty Herrera, RN Pulmonary granuloma Social History Tobacco Use Types Packs/Day Years [...] Tech [place] [address] Marguerite Macias 12/19/2023 3:00 PM EDT Office Visit [place] [address] Gardenia Golden APRN [facility] [place] [place] [address] 01/29/2024 1:[address] [place] [address] César Escobar MD [facility] [place] [address] 01/29/2024 2:30 PM EDT Office Visit [place] [address] César Escobar MD [facility] DR THORACIC SURGERY [place], [place] [id number] documented as of this encounter Results * CT Chest wo Contrast (Generic) (11/23/2020 2:36 PM EDT) Anatomical Region Laterality Modality Chest Computed Tomogra phy 11/23/2020 2:52 PM EDT Impressions 11/23/2020 4:10 PM EDT Smaller, less conspicuous and partially resolved spiculated and round bilateral multi lobar pulmonary nodules. Thank you for letting us participate in the care of this patient. ??If you are a health care provider and have any questions regarding this report, please contact the number below. ??For patients who have questions please contact the health life care planner that requested your imaging first. ? Electronically signed by: Ban Lo MD, [facility] ([phone]), at 11/23/2020 4:10 PM Narrative 11/23/2020 4:10 PM EDT EXAMINATION: CT CHEST WO CONTRAST (GENERIC) CLINICAL HISTORY: Lung nodule, multiple < 6mm, stable on prior exam Patient with H/O multiple nodules and resection with no malignancy noted, 1 yr FU, eval for changes and evidence of new disease TECHNIQUE: 3.75 mm thick axial contiguous sections were obtained through the chest via helical acquisition without intravenous contrast administration. Thin-section reconstructions as well as coronal and sagittal reformatted images were generated. COMPARISON: November 26, 2019 and serial chest x-rays dating back to September 27, 2016. For the purposes of this study however direct comparison is made to November 2019. FINDINGS: Pulmonary parenchyma: Bilateral multi lobar spiculated and round parenchymal nodules are 1 to 2 mm smaller. Several indistinct nodules have either resolved, been replaced with less conspicuous groundglass opacity or become tubular suggesting scar. Stable calcified granulomata. Stable suture material. No new nor enlarging nodules or masses. Airways: Patent Pleura: No pneumothorax or pleural effusion Lymph nodes: No enlarged lymph nodes Heart, pericardium, and great vessels: No pericardial effusion Other mediastinal structures: Air-filled esophagus raises the possibility of gastroesophageal reflux disease. Lower neck: Symmetric thyroid lobes Upper abdomen: Thickened gastric fundus versus dependent ingested material Body wall soft tissues: No muscular asymmetry Skeletal structures: No acute fractures nor suspicious lesions Procedure Note Ban Lo MD - 11/23/2020 EXAMINATION: CT CHEST WO CONTRAST (GENERIC) CLINICAL HISTORY: Lung nodule, multiple < 6mm, stable on prior exam Patient with H/O multiple nodules and resection with no malignancy noted,1 yr FU, eval for changes and evidence of new disease TECHNIQUE: 3.75 mm thick axial contiguous sections were obtained throughthe chest via helical acquisition without intravenous contrastadministration. Thin-section reconstructions as well as coronal and sagittal reformattedimages were generated. COMPARISON: November 26, 2019 and serial chest x-rays dating back to 2016. For the purposes of this study however direct comparison is made toNovember 2019. FINDINGS: Pulmonary parenchyma: Bilateral multi lobar spiculated and roundparenchymal nodules are 1 to 2 mm smaller. Several indistinct nodules have either resolved, been replaced with less conspicuous groundglass opacity or become tubular suggesting scar. Stable calcified granulomata. Stable suture material. No new nor enlarging nodules or masses. Airways: Patent Pleura: No pneumothorax or pleural effusion Lymph nodes: No enlarged lymph nodes Heart, pericardium, and great vessels: No pericardial effusion Other mediastinal structures: Air-filled esophagus raises the possibilityof gastroesophageal reflux disease. Lower neck: Symmetric thyroid lobes Upper abdomen: Thickened gastric fundus versus dependent ingestedmaterial Body wall soft tissues: No muscular asymmetry Skeletal structures: No acute fractures nor suspicious lesions IMPRESSION Smaller, less conspicuous and partially resolved spiculated and roundbilateral multi lobar pulmonary nodules. Thank you for letting us participate in the care of this patient. If youare a health care provider and have any questions regarding this report,please contact the number below. For patients who have questions please contactthe health life care planner that requested your imaging first. 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
--- OUTSIDE RECORDS SUMMARY | 2023-12-13 18:23 | XMS_ITS | Encounter Summary ---
Author Organization [facility] [place] [address] Care Team Providers Care Aerodynamicist Name Role Phone Shirley Yu MD Primary Care Provider [phone] Reason for Referral * Consultation (Urgent) - Closed Specialty Diagnoses / Procedures Referred By Dominik mcleod Referred To Contact Orthopaedic Surgery Diagnoses Nodule of soft tissue César Escobar MD [facility] [place] [address] Paulino Gilbert MD [address] [place] [address] Referral ID Status Reason Start Date Expiration Date V isits Requested Visits Authorized [id number] Closed Consult, Test & Treat Non PCP 11/23/2020 05/22/2021 1 1 * Diagnostic Test (Routine) - Closed Specialty Diagnoses / Procedures Referred By Dominik mcleod Referred To Contact Radiology Diagnoses Pulmonary granuloma Multiple lung nodules Hx of smoking Procedures CT Chest wo Contrast (Generic) César Escobar MD [facility] [place] [address] [facility] [place] [address] Referral ID Status Reason Start Date Expiration Date V isits Requested Visits Authorized [id number] Closed Specialty Service Requested 11/23/2020 02/28/2022 1 1 Reason for Visit * Reason Comments Follow-up Encounter Details Date Type Department Care Team (Late st Contact Info) Description 11/23/2020 3:30 PM EDT Office [place] [address] César Escobar MD [facility] [place] [address] Pulmonary granuloma; Multiple lung nodules; Hx of smoking; Rheumatoid nodule of left wrist; Nodule of soft tissue Social History Tobacco Use Types Packs/Day Years [...] Sign Reading Time Taken Comments Blood Pressure 139/57 11/23/2020 3:11 PM EDT Pulse 60 11/23/2020 3:11 PM EDT Temperature 36.5 ??C (97.7 ??F) 11/23/2020 3:11 PM ED T Respiratory Rate 18 11/23/2020 3:11 PM EDT Oxygen Saturation 98% 11/23/2020 3:11 PM EDT Inhaled Oxygen Concentration - - Weight 85 kg (187 lb 6.4 oz) 11/23/2020 3:11 PM EDT Height 168.4 cm (5' 6.3) 11/23/2020 3:11 PM EDT Body Mass Index 29.97 11/23/2020 3:11 PM EDT documented in this encounter Patient Instructions * Patient Instructions* Kayla Poe RN - 11/23/2020 3:30 PM EDT Thank you for visiting Dr. Escobar in clinic 11/23/20 Dr. Escobar would like to see you back in clinic in 1 year with a recent CT scan of your chest without IV contrast. You will receive a letter in the mail/ receive a call to schedule this appointment. A Referral to Dr. Gilbert at [facility] has been faxed as well. ?? Exercise each day for 30 minutes or [...] documented in this encounter Progress Notes * Scar Del Cid PA - 11/23/2020 3:30 PM EDT Thoracic Surgery Attending Outpatient Follow Up Note MD Scar Bryant PA-C [place] [address] FAX: Chief Complaint: Follow-up s/p wedge resection 2019, multiple bilateral lung nodules in the settingof 30 pack-year former smoker HPI: Ms. Snyder is a 60-year-old woman initially referred to us for multiple lung nodules, status post wedge resection of 1 of the nodules with final pathology confirming granulomatous inflammation.Because of her smoking history (3/4 ppd x 40 years = 30 PY history) and the multiplicity of the nodules, we recommended ongoing follow-up and she comes in today having obtained a repeat CT scan. She has not smoked since quitting at age 53 (7 years ago). She denies any illnesses or hospitalizations since she was seen last year. She reports an 18 pound weight loss, which she attributes to better glucose control and drop in her A1C. She has also been walking more. She denies f/c/n/v/SOB/CP/cough. Medications: Current Outpatient Medications on File Prior to Visit Medication Sig Dispense Refill ??? chlorthalidone (Hygroten) 25 mg Tablet ??? ferrous gluconate 324 mg (38 mg iron) Tablet TAKE ONE TABLET BY MOUTH EVERY DAY ??? Magnesium Oxide 250 mg magnesium Tablet Take by mouth. ??? citalopram (CeleXA) 20 mg Tablet Take by mouth. ??? dabigatran (PRADAXA) 150 mg Capsule Take [...] Diabetic Supplies, Miscellan. Misc Form faxed to [employer] for pump supplies. 100 each 12 ??? losartan (COZAAR) 100 mg Tablet Take 50 mg by mouth daily. ??? Magnesium 250 mg Tab Take by mouth daily. ??? aspirin 81 mg EC tablet Take 81 mg by mouth daily. ??? insulin lispro (HumaLOG) Solution /7 ??? gabapentin (Neurontin) 300 mg Capsule Take 300 mg by mouth 3 times daily as needed. ??? glucagon HCl (GLUCAGON, HUMAN RECOMBINANT,) 1 mg Recon Soln Inject 1 mg into the muscle as needed (as needed for hypoglycemia). (Patient not taking: Reported on 11/23/2020) 1 mL 3 ??? acetaminophen (TYLENOL) 500 mg Tablet Take 1 tablet by mouth every 4 hours as needed for Pain. (Patient not taking: Reported on 11/23/2020) 30 tablet 1 ??? insulin lispro (HUMALOG) 100 unit/mL injection Inject 55-60 Units subcutaneously continuous. Via insulin pump No current facility-administered medications on file prior to visit. Physical Exam: BP 139/57 (Patient Position: Sitting) Pulse 60 Temp 36.5 ??C (97.7 ??F) (Temporal) Resp 18 Ht 168.4 cm (5' 6.3) Wt 85 kg (187 lb 6.4 oz) SpO2 98% BMI 29.97 kg/m?? General Appearance: Alert, cooperative, no distress, appears stated age Nk: Supple, symmetrical, trachea midline, no adenopathy; thyroid: not enlarged, symmetric, no tenderness/mass/nodules; no carotid bruit or JVD Lungs: Clear to auscultation bilaterally, respirations unlabored, No wheezes, crackles or ronchi. Heart: Regular rate and rhythm, S1 and S2 normal, No murmur, rub, or gallop Abdomen: Soft, non-tender, bowel sounds active all four quadrants, no masses, no organomegaly Extremities: Extremities normal, atraumatic, no cyanosis or edema. Left radial wrist and right posterior shoulder: pea-sized firm nodules with no overlying skin changes and nontender to palpation Wound/Incision: Clean, dry, intact, with evidence of good wound healing Imaging: We have independently visualized the following studies: CT Chest (11/23/20): Impression: Smaller, less conspicuous and partially resolved spiculated and round bilateral multi lobar pulmonary nodules. Assessment: Jennifer Snyder is a 60 y.o. female with multiple lung nodules and a biopsy demonstrating granulomatous inflammation. Her updated imaging confirms stable versus slight improvement in her nodules. Due to the multiplicity of the nodules and her 30 pack-year smoking history (quit 7 years ago), we recommended continuing radiographic surveillance until at least 15 years smoke-free. She will return in1 year for a noncontrast chest CT. Plan: 1. Followup in [address] chest CT 2. 30 minutes of exercise daily at a minimum 3. Referral to orthopedic surgeon Dr. Gilbert ([facility]) to eval firm nodules left radial wrist and right shoulder 4. Call with any questions All plans formulated in discussion with and directed by attending thoracic surgeon Dr. Escobar. GENTRY Fang 11/23/20 Thoracic Surgery [facility] * César Escobar MD - 11/23/2020 3:30 PM EDT Thoracic surgery follow-up visit I saw and examined Ms. Snyder with GENTRY Mckeon, and agree with her findings, assessment and plan. In brief: Chief complaint: Follow-up wedge resection with multiple bilateral lung nodules History of present illness: Ms. Snyder is a 60-year-old woman initially referred to me for multiple lung nodules. Wedge resection of several of these nodules was performed in 2019, and final pathology revealed granulomatous inflammation. Due to a 18-iuzj-zoak smoking history, I recommended ongoingannual surveillance. She comes in today having completed her annual chest CT. She remains smoke-free, and reports no new complaints. Current Outpatient Medications on File Prior to Visit Medication Sig Dispense Refill ??? chlorthalidone (Hygroten) 25 mg Tablet ??? ferrous gluconate 324 mg (38 mg iron) Tablet TAKE ONE TABLET BY MOUTH EVERY DAY ??? Magnesium Oxide 250 mg magnesium Tablet Take by mouth. ??? citalopram (CeleXA) 20 mg Tablet Take by mouth. ??? dabigatran (PRADAXA) 150 mg Capsule Take [...] Diabetic Supplies, Miscellan. Misc Form faxed to [employer] for pump supplies. 100 each 12 ??? losartan (COZAAR) 100 mg Tablet Take 50 mg by mouth daily. ??? Magnesium 250 mg Tab Take by mouth daily. ??? aspirin 81 mg EC tablet Take 81 mg by mouth daily. ??? insulin lispro (HumaLOG) Solution 31/10 ??? gabapentin (Neurontin) 300 mg Capsule Take 300 mg by mouth 3 times daily as needed. ??? glucagon HCl (GLUCAGON, HUMAN RECOMBINANT,) 1 mg Recon Soln Inject 1 mg into the muscle as needed (as needed for hypoglycemia). (Patient not taking: Reported on 11/23/2020) 1 mL 3 ??? acetaminophen (TYLENOL) 500 mg Tablet Take 1 tablet by mouth every 4 hours as needed for Pain. (Patient not taking: Reported on 11/23/2020) 30 tablet 1 ??? insulin lispro (HUMALOG) 100 unit/mL injection Inject 55-60 Units subcutaneously continuous. Via insulin pump No current facility-administered medications on file prior to visit. BP 139/57 (Patient Position: Sitting) Pulse 60 Temp 36.5 ??C (97.7 ??F) (Temporal) Resp 18 Ht 168.4 cm (5' 6.3) Wt 85 kg (187 lb 6.4 oz) SpO2 98% BMI 29.97 kg/m?? Physical exam: She appears comfortable. She has no palpable adenopathy. Her lungs are clear. She has no neurologic deficits. Incidental note is made of a firm nodule on the left wrist Imaging: A chest CT dated November 23 demonstrates minimal reduction in size of her multiple bilateral nodules Assessment: 60-year-old former smoker with multiple bilateral lung nodules most likely to reflect granulomatous inflammation. She continues to qualify for lung cancer screening due to her 49-slkg-zkxd smoking history and her age, and will continue to undergo annual screening until the age of 68 at which time she will be smoke-free for 15 years. Plan: Return to clinic in [address] chest CT, rereferral to her established orthopedicsurgeon for firm left wrist nodule CÉSAR ESCOBAR MD documented in this encounter Plan of Treatment Upcoming Encounters Date Type Department Care Team (Late st Contact Info) Description 12/19/2023 1:00 PM EDT Tech [place] [address] Marguerite Macias 12/19/2023 3:00 PM EDT Office [place] [address] Gardenia Golden APRN [facility] [place] [address] 01/29/2024 1:[address] [place] [address] César Escobar MD [facility] [place] [address] 01/29/2024 2:30 PM EDT Office [place] [address] César Escobar MD [facility] [place] [address] Scheduled Referrals Name Type Priority Associated Diagnoses Order Schedule Referral to Orthopaedics Outpatient Referral Routine Nodule of soft tissue Ordered: 11/23/2020 documented as of this encounter Results * (ABNORMAL) CT Chest [...] who have questions please contact the health primary health care nurse that requested your imaging first. ? Narrative [...] heart. No pericardial effusion. Moderate to severe [place] coronary artery calcification. Other mediastinal structures: Thickened [...] of tobacco use, presenting hazards to health Rheumatoid nodule of left wrist Rheumatoid arthritis Nodule of soft tissue Localized superficial swelling, mass, or lump Pulmonary granuloma Postinflammatory pulmonary fibrosis Multiple lung nodules Other nonspecific abnormal finding of lung field Hx of smoking Personal history of tobacco use, presenting hazards to health documented in this encounter Care Teams Aerodynamicist Relationship Specialty Start Date End Date Shirley Yu MD [address] [place] [address] PCP - General 11/19/14 documented as of this encounter
--- OUTSIDE RECORDS SUMMARY | 2023-12-13 18:23 | XMS_ITS | Encounter Summary ---
Author Organization [facility] [place] [address] Care Team Providers Care Studio Musician Name Role Phone Shirley Yu MD Primary Care Provider [phone] Encounter Details Date Type Department Care Team (Late st Contact Info) Description 07/09/2019 Notes [place] [address] Chandra Guillen MD [facility] [place] [address] Social History Tobacco Use Types Packs/Day Years [...] as of this encounter Progress Notes * Chandra Guillen MD - 07/09/2019 1:10 PM EDT I spoke with Jennifer on the phone. She is a 58-year-old female that had the onset of back and left leg pain approximately 3 weeks ago. She was apparently evaluated at an emergency room and received a shot of Toradol which improved her symptoms significantly. Then she was vacuuming and the pain seemed to recur such that she is once again having fairly significant limitations moving. The pain radiates from the back into the left anterior thigh. She is currently taking Neurontin which may be helping take the edge off of the symptoms. She has not had any physical therapy nor injections. She did try chiropractic treatments initially but thought that this worsened her symptoms. On her MRI, she has a disc bulge at L4-5 that is a little asymmetric to the left side. This may be causing some compression on the L5 nerve root. More specific to her symptoms, however, is a foraminal disc herniation at L3-4. This is undoubtably compressing up against the L3 nerve root which would match her symptoms better. I told her that the typical treatment would be standard conservative therapies such as oral medications, physical therapy, injections. Unfortunately as for the latter 2, I am not sure what option shehas under the current virus concerns. However it would be perfectly appropriate to treat this with oral medications and given her response to the Toradol, she could certainly try nonsteroidals and/oroccasional doses of steroids. Hopefully with time and medical treatment, the majority of patients will improve and not require surgery. Typically we would reserve surgery for patients that fail conservative treatments as outlinedabove. She was comfortable with this plan. She admitted that she was not too interested in surgery at thistime and I think that is appropriate. If she has any worsening she can contact us. documented in this encounter Plan of Treatment Upcoming Encounters Date Type Department Care Team (Late st Contact Info) Description 12/19/2023 1:00 PM EDT Tech [place] [address] Marguerite Macias 12/19/2023 3:00 PM EDT Office [place] [address] Gardenia Golden APRN [facility] [place] [address] 01/29/2024 1:[address] [place] [address] César Escobar MD [facility] [place] [address] 01/29/2024 2:30 PM EDT Office [place] [address] César Escobar MD [facility] [place] [address] documented as of this encounter Visit Diagnoses Not on filedocumented in this encounter Care Teams Studio Musician Relationship Specialty Start Date End Date Shirley Yu MD [address] [place] [address] PCP - General 11/19/14 documented as of this encounter
--- OUTSIDE RECORDS SUMMARY | 2023-12-13 18:23 | XMS_ITS | Encounter Summary ---
[place] [address] Care Team Providers Care Spring Forger Name Role Phone Shirley Yu MD Primary Care Provider [phone] Encounter Details Date Type Department Care Team (Late Contact Info) Description 07/05/2019 Ancillary Procedure [place] [address] Shirley Yu MD [address] [place] [id number] Social History Tobacco Use Types Packs/Day Years [...] PM EDT Tech [place] [phone] Marguerite Macias 12/19/2023 3:00 PM EDT Office Visit [place] [address] Gardenia Golden APRN [facility] DR [place] [address] 01/29/2024 1:[address] [place] [address] César Escobar MD [facility] DR THORACIC SURGERY [place], [place] [address] 01/29/2024 2:30 PM EDT Office [place] [address] César Escobar MD [facility] DR THORACIC [place] [address] documented as of this encounter Procedures Procedure Name Priority Date/Time Associated Diagnosis Comments FILM LIBRARY STORAGE ONLY MR SPINE Routine 07/05/2019 12:00 AM EDT documented in this encounter Results * Film Library- Storage Only MR Spine (07/05/2019 12:00 AM EDT) Narrative [facility] - 07/08/2019 11:27 AM EDT This exam is auto-finalizing. It's purpose is for storage only. Shirley Yu MD IMG FILM LIBRARY ORD ERABLES [place], [place] documented in this encounter Visit Diagnoses Not on filedocumented in this encounter Care Teams Spring Forger Relationship Specialty Start Date End Date Shirley Yu MD [address] [place] [address] PCP - General 11/19/14 documented as of this encounter
--- OUTSIDE RECORDS SUMMARY | 2023-12-13 18:23 | XMS_ITS | Encounter Summary ---
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, bilateral Avastin OD Procedures BEVACIZUMAB INJECTION TC BEVACIZUMAB, 10MG, INJECTION (AVASTIN) MINOR SURGERY Bridget Dominguez MD [facility] [place] [address] Brdiget Dominguez MD [facility] [place] [address] Referral ID Status Reason Start Date Expiration Date Visits Re quested Visits Authorized [id number] Closed 09/24/2020 03/26/2021 6 6 Encounter Details Date Type Department Care Team (Latest Contact Info) Description 09/24/2020 5:15 PM EDT Procedure visit Ophthalmology at [facility] [place] [address] Bridget Dominguez MD [facility] [place] [address] Proliferative diabetic retinopathy of both eyes without [...] Patient Instructions * Patient Instructions* Sarah Pope Dawit - 09/24/2020 5:15 PM EDT Today you had your right [...] about driving: We always recommend having a septic pump truck driver on the day you get an [...] Normal and Not Expected side effects: Call [phone] (Eye Clinic) DAY or NIGHT, HOLIDAY or [...] PM EDT Tech Visit [place] [address] Marguerite Macias 12/19/2023 3:00 PM EDT Office [place] [address] Gardenia Golden APRN [facility] [place] [address] 01/29/2024 1:[address] [place] [place] [address] César Escobar MD [facility] [place] [address] 01/29/2024 2:30 PM EDT Office [place] [address] César Escobar MD [facility] [place] [address] documented as of this encounter Procedures Procedure Name Priority Date/Time Associated Diagnosis Comments INTRAVITREAL INJECTION PHARMACOLOGIC AGENT - OD - RIGHT EYE Routine 09/24/2020 4:17 PM EDT 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 documented in this encounter Results * Intravitreal Injection Pharmacologic Agent - OD - Right Eye (09/24/2020 4:17 PM EDT) Anatomical Region Laterality Modality Other Narrative 09/24/2020 4:17 PM EDT Pre Operative Diagnosis: Diabetic Macular Edema - Diabetic Retinopathy Post Operative Diagnosis: Diabetic Macular Edema - Diabetic Retinopathy Procedure: Intravitreal injection of Avastin 1.25 mg Right Eye Assist: Senior Animal Trainer Anesthesia: Topical Proparacaine and topical 4% Lidocaine Complications: None Procedure: The patient was taken to the minor treatment suite where the patient was reidentified using name and birthdate as critical identifiers. The correct eye as the operative site was reidentified by a preplaced site bill, and the consent form was actively reviewed by the nurse practitioner physician assistant and the surgeon. The right eye was prepped including instillation of Betadine 5% into the right cul de sac for 5 minutes, facial prep with ophthalmic Betadine and placement of a lid speculum. The surgeon performed hand washing preoperatively, used gloves, and wore a face mask or used no talking technique during the procedure, as did the surgical resident. After topical anesthesia of the injection site [...] call the Eye Clinic or Eye Doctor flight control tower operator, should they develop pain in the treated [...] mg, Intravitreal, ONCE, 1 dose, On Meseret 09/24/20 at 1645, For ophthalmic use only. Syringe contains 0.1 mL of overfill , Routine Given 09/24/2020 4:45 PM EDT 1.25 mg Right Eye documented in this encounter Care Teams Caustic Room Attendant Relationship Specialty Start Date End Date Shirley Yu MD [address] [place] [address] PCP - General 11/19/14 documented as of this encounter
--- OUTSIDE RECORDS SUMMARY | 2023-12-13 18:23 | XMS_ITS | Encounter Summary ---
[place] [address] Care Team Providers Care Compressor Engineer Name Role Phone Shirley Yu MD Primary Care Provider [phone] Encounter Details Date Type Department Care Team (Late st Contact Info) Description 11/26/2019 Telephone [place] [phone] Huan Flynn Social History Tobacco Use Types Packs/Day Years [...] encounter Miscellaneous Notes * Telephone Encounter - Huan Flynn - 11/26/2019 10:15 AM EDT Phone call from Patient. She is having CT today and would like to have a telephone conference with Dr. Escobar rather than coming in on 12/01 for follow up. Spoke to Dr. Escobar and he suggestedshe give a call back after the CT is done. She will plan to do this. documented in this encounter Plan of Treatment Upcoming Encounters Date Type Department Care Team (Late st Contact Info) Description 12/19/2023 1:00 PM EDT Tech [place] [address] Marguerite Macias 12/19/2023 3:00 PM EDT Office Visit [place] [address] Gardenia Golden, DIRECTOR CLINICAL RESEARCH [facility] [place] [address] 01/29/2024 1:[address] [place] [address] César Escobar MD [facility] [place] [address] 01/29/2024 2:30 PM EDT Office Visit [place] [address] César Escobar MD [facility] [place] [address] documented as of this encounter Visit Diagnoses Not on filedocumented in this encounter Care Teams Compressor Engineer Relationship Specialty Start Date End Date Shirley Yu MD [address] [place] [address] PCP - General 11/19/14 documented as of this encounter
--- OUTSIDE RECORDS SUMMARY | 2023-12-13 18:23 | XMS_ITS | Encounter Summary ---
Author Organization [facility] [place] [address] Care Team Providers Care Gang Mower Operator Name Role Phone Shirley Yu MD Primary Care Provider [phone] Reason for Visit * Reason Comments Procedure Encounter Details Date Type Department Care Team (Latest Contact Info) Description 12/31/2020 2:00 PM EDT Office Visit Ophthalmology at [facility] [place] [address] Bridget Dominguez MD [facility] [place] [address] Proliferative diabetic retinopathy of both eyes without [...] this encounter Patient Instructions * Patient Instructions* Bruna Kent - 12/31/2020 2:00 PM EDT Today you had your right eye(s) injected with a medication called Triesense. -Please pay attention to your future scheduled [...] about driving: We always recommend having a six horse hitch driver on the day you get an [...] Normal and Not Expected side effects: Call [phone] (Eye Clinic) DAY or NIGHT, HOLIDAY or WEEKEND if you experience any of the following: = Severe, increasing pain in the eye = Significant, dramatic vision loss = Redness on and around the eye that gets worse, not better = Severe light sensitivity Call [phone] or go to the Emergency room immediately if you experience = Chest pain = Abdominal pain = Weakness or numbness on any part of your body = Slurred speech = Or any other symptoms of concern documented in this encounter Progress Notes * Bridget Dominguez MD - 12/31/2020 2:00 PM EDT ASSESSMENT/PLAN: 1. 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 Visual Acuity Visual Acuity (Snellen - Linear) Right Left Dist sc 20/40 20/20 Near cc 20/25-2 20/20 1. PDR s/p PRP OD with DME OD Treated with avastin Today 12/31/2020 DFE and OCT show the edema is persistent. Will switch to Triesence for better and more longstandingcontrol of DME 2. PDR s/p PRP OS with DME OS - monitor Triesence OD today Fu with Dr Jeff 6 wk for IOP ck Follow up 12 weeks after that for DFE in the mini room/OCT/Possible Triesence OD Sooner PRN I, Sharonda Estes, SEA, have performed the documentation for this encounter in the presence of, and acting as a scribe for Bridget Dominguez MD. I performed the services which were documented by the scribe, and I agree with the accuracy of the documentation in this encounter. Bridget Dominguez MD, PhD Extended Ophthalmoscopy Indication: [...] PM EDT Tech [place] [address] Marguerite Macias 12/19/2023 3:00 PM EDT Office [place] [address] Gardenia Golden, [employer] D[employer] [facility] [place] [address] 01/29/2024 1:[address] [place] [address] César Escobar MD [facility] [place] [address] 01/29/2024 2:30 PM EDT Office [place] [address] César Escobar MD [facility] [place] [address] documented as of this encounter Procedures Procedure Name Priority Date/Time Associated Diagnosis Comments OCT RETINA - OU - BOTH EYES Routine 12/31/2020 4:08 PM EDT 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 documented in this encounter Results * OCT Retina - OU - Both Eyes (12/31/2020 4:08 PM EDT) Anatomical Region Laterality Modality Other Narrative 12/31/2020 4:08 PM EDT Right Eye Quality was good. Scan locations included subfoveal. Progression has been stable. Findings include abnormal foveal contour, intraretinal fluid. Left Eye Quality was good. Scan locations included subfoveal. Progression has been stable. Findings include abnormal foveal contour. Birdget Dominguez MD OPHTHALMOLOGY SERVICES ORDERABLES documented in this encounter Visit Diagnoses Diagnosis 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 documented in this encounter Care Teams Gang Mower Operator Relationship Specialty Start Date End Date Shirley Yu MD [address] [place] [address] PCP - General 11/19/14 documented as of this encounter
--- OUTSIDE RECORDS SUMMARY | 2023-12-13 18:23 | XMS_ITS | Encounter Summary ---
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, bilateral Avastin OD Procedures BEVACIZUMAB INJECTION TC BEVACIZUMAB, 10MG, INJECTION (AVASTIN) MINOR SURGERY Bridget Dominguez MD [facility] [place] [address] Bridget Dominguez MD [facility] [place] [address] Referral ID Status Reason Start Date Expiration Date Visits Re quested Visits Authorized [id number] Closed 09/24/2020 03/26/2021 6 6 Encounter Details Date Type Department Care Team (Latest Contact Info) Description 12/31/2020 8:45 PM EDT Procedure visit Ophthalmology at [facility] [place] [address] Bridget Dominguez MD [facility] [place] [address] Proliferative diabetic retinopathy of both eyes without [...] * Patient Instructions* Sarah Pope Dawit - 12/31/2020 8:45 PM EDT Today you had your right [...] about driving: We always recommend having a tractor driver on the day you get an [...] Normal and Not Expected side effects: Call [phone] (Eye Clinic) DAY or NIGHT, HOLIDAY or [...] symptoms of concern documented in this encounter Miscellaneous Notes * Addendum Note - Bridget Dominguez MD - 12/31/2020 8:45 PM EDTAddended by: BRIDGET DOMINGUEZ on: 12/31/2020 03:58 PM Modules accepted: Orders documented in this encounter Plan of Treatment Upcoming Encounters Date Type Department Care Team (Late st Contact Info) Description 12/19/2023 1:00 PM EDT Tech [place] [phone] Marguerite Macias 12/19/2023 3:00 PM EDT Office Visit [place] [address] Gardenia Golden, [employer] [facility] [place] [address] 01/29/2024 1:[address] [place] [phone] César Escobar MD [facility] [place] [address] 01/29/2024 2:30 PM EDT Office [place] [address] César Escobar MD [facility] [place] [address] documented as of this encounter Procedures Procedure Name Priority Date/Time Associated Diagnosis Comments INTRAVITREAL INJECTION PHARMACOLOGIC AGENT - OD - RIGHT EYE Routine 12/31/2020 3:53 PM EDT 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 documented in this encounter Results * Intravitreal Injection Pharmacologic Agent - OD - Right Eye (12/31/2020 3:53 PM EDT) Anatomical Region Laterality Modality Other Narrative 12/31/2020 3:53 PM EDT Pre Operative Diagnosis: Diabetic Macular Edema - Diabetic Retinopathy Post Operative Diagnosis: Diabetic Macular Edema - Diabetic Retinopathy Procedure: Intravitreal injection of ??Triescence, right eye (4mg/0.1ml) Assist: Group Controller Anesthesia: Topical Proparacaine and topical 4% Lidocaine Complications: None Procedure: The patient was taken to the minor treatment suite where the patient was reidentified using name and birthdate as critical identifiers. The correct eye as the operative site was reidentified by a preplaced site bill, and the consent form was actively reviewed by the regulatory assistant and the surgeon. The left eye was prepped including instillation of Betadine 5% into the left cul de sac for 5 minutes, facial prep with ophthalmic Betadine and placement of a lid speculum. The surgeon performed hand washing preoperatively, used gloves, and wore a face mask or used no talking technique during the procedure, as did the surgical aides teacher. After topical anesthesia of the injection site using multiple Q-tips soaked in 4% Lidocaine, Triescence was injected with a 30 gauge needle directed toward the center of the vitreous cavity, a measured 4 mm posterior to the limbus at the 0730 o'clock meridian. The patient demonstrated a minimum of counting fingers vision post injection, and received a post injection drop of Betadine OS. An optional patch was offered to the patient, and the patient was asked to call the Eye Clinic or Eye Doctor statistical consultant, should they develop pain in the treated eye, increasing redness or a discharge from the eye. Condition on Discharge: Stable. 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 documented in this encounter Administered Medications Inactive Administered Medications - up to 3 most recent administrations Medication Order MAR Action Action Date Dose Rate Site triamcinolone acetonide (pf) (Triesence) (40 mg/mL) intraocular suspension 4 mg 4 mg, Intravitreal, ONCE, 1 dose, On Meseret 12/31/20 at 1615, Routine Given 12/31/2020 4:15 PM EDT 4 mg Right Eye documented in this encounter Care Teams Environmental Journalist Relationship Specialty Start Date End Date Shirley Yu MD [address] [place] [address] PCP - General 11/19/14 documented as of this encounter
--- OUTSIDE RECORDS SUMMARY | 2023-12-13 18:23 | XMS_ITS | Encounter Summary ---
Author Organization [facility] [place] [address] Care Team Providers Care Safety Associate Name Role Phone Shirley Yu MD Primary Care Provider [phone] Reason for Referral * Diagnostic Test (Routine) - Closed Specialty Diagnoses / Procedures Referred By Contac t Referred To Contact Radiology Diagnoses Pulmonary granuloma Procedures CT Chest wo Contrast (Generic) César Escobar MD [facility] [place] [address] [facility] [place] [address] Referral ID Status Reason Start Date Expiration Date V isits Requested Visits Authorized [id number] Closed Specialty Service Requested 11/18/2020 02/16/2021 1 1 Reason for Visit * Diagnostic Test (Routine) - Closed Specialty Diagnoses / Procedures Referred By Contac t Referred To Contact Radiology Diagnoses Pulmonary granuloma Procedures CT Chest wo Contrast (Generic) César Escobar MD [facility] [place] [address] [facility] [place] [address] Referral ID Status Reason Start Date Expiration Date V isits Requested Visits Authorized [id number] Closed Specialty Service Requested 11/18/2020 02/16/2021 1 1 Encounter Details Date Type Department Care Team (Latest Contact Info) Description 11/23/2020 2:25 PM EDT - 11/23/2020 11:59 PM EDT Hospital Encounter CT Scan at [facility] [place] [address] César Escobar MD [facility] [place] [address] Pulmonary granuloma Discharge Disposition: Home Social History [...] Sig Dispensed Refills Start Date End Date ferrous gluconate 324 mg (38 mg iron) [...] TWICE A DAY 98 07/26/2016 Diabetic Supplies, [employer]. Misc Form faxed to [employer] for pump supplies. 100 each 12 03/23/2015 losartan (COZAAR) 100 mg Tablet Take 50 mg by mouth daily. 08/11/2014 aspirin 81 mg EC tablet Take 81 mg by mouth daily. insulin lispro (HUMALOG) 100 unit/mL injection Inject 55-60 Units subcutaneously continuous. Via insulin pump chlorthalidone (Hygroten) 25 mg Tablet 10/22/2020 12/01/2023 insulin lispro (HumaLOG) Solution 24/7 01/07/2016 3 [...] 40 mg by mouth nightly. 12/13/2017 12/20/2021 carvedilol (COREG) 3.125 mg Tablet Take 3.125 mg by mouth 2 times daily (with meals). 04/21/2022 Magnesium 250 mg Tab Take by mouth daily. 022 documented as of this encounter Plan of Treatment Upcoming Encounters Date Type Department Care Team (Late st Contact Info) Description 12/19/2023 1:00 PM EDT Tech [place] [address] Marguerite Macias 12/19/2023 3:00 PM EDT Office [place] [address] Gardenia Golden, LADAR[facility] [place] [address] 01/29/2024 1:[address] [place] [address] César Escobar MD [facility] [place] [address] 01/29/2024 2:30 PM EDT Office [place] [address] César Escobar MD [facility] [place] [address] documented as of this encounter Procedures Procedure Name Priority Date/Time Associated Diagnosis Comments CT CHEST WO CONTRAST (GENERIC) Routine 11/23/2020 2:36 PM EDT Pulmonary granuloma documented in this [...] who have questions please contact the health medicare interviewer that requested your imaging first. ? Narrative 11/23/2020 4:10 PM EDT EXAMINATION: CT [...] patients who have questions please contactthe health medicare interviewer that requested your imaging first. César Escobar MD IMG CT ORDERABLE S documented in this encounter Visit Diagnoses Diagnosis Pulmonary granuloma Postinflammatory pulmonary fibrosis documented in this encounter Care Teams Safety Associate Relationship Specialty Start Date End Date Shirley Yu MD [address] [place] [address] PCP - General 11/19/14 documented as of this encounter
--- OUTSIDE RECORDS SUMMARY | 2023-12-13 18:23 | XMS_ITS | Encounter Summary ---
Author Organization Formerly [facility] [place] [address] Care Team Providers Care Emt I/85 Name Role Phone Shirley Yu MD Primary Care Provider [phone] Encounter Details Date Type Department Care Team (Latest Contact Info) Description 07/21/2020 1:30 PM EDT Office Visit [place] [address] Hussain Rader MD [facility] [place] [address] Kalin Bourgeois MD [facility] [place] [address] Anemia of chronic renal failure, stage 3b; Stage 3b chronic kidney disease; Hypertensive kidney disease with stage 3b chronic kidney disease Social History Tobacco [...] Sign Reading Time Taken Comments Blood Pressure 159/48 07/21/2020 1:03 PM EDT Pulse 74 07/21/2020 1:03 PM EDT Temperature - - Respiratory Rate - - Oxygen Saturation - - Inhaled Oxygen Concentration - - Weight 91.6 kg (202 lb) 07/21/2020 1:03 PM EDT Height 168.9 cm (5' 6.5) 07/21/2020 1:03 PM EDT Body Mass Index 32.12 07/21/2020 1:03 PM EDT documented in this encounter Progress Notes * Kalin Bourgeois MD - 07/21/2020 1:30 PM EDT Nephrology clinic follow up notes: PATIENT: Jennifer Snyder : 1960 ID:[id number] blake is a 54 yo female [...] placement (8x60mm Everflex dilated to 7mm) RIGHT JUNIOR ASSISTANT MANAGER angioplasty (Milana 5x40mm to 6 elias) Vascular planning rt sided angio to evaluate patency of right popliteal to femoral bypass as there is increased stenosis in the graft but was currently on hold due to CRF. Interim history: She had complicated PAD ,under close follow up with vascular surgery had angiogramand intervention. Overall feeling all right. Does not check blood pressure regularly, but has been running in the 140s/80s at home. Patient does not take any NSAIDS, denies kidney stones, does not take herbal supplements, does not have any dysuria, hematuria, or any symptoms of obstruction. Does not have shortness of breath, orthopnea, PND. ROS: 4 point review of sytem was done, everything was negative except for what was mentioned above. Past Medical History: Diagnosis Date ??? Allergy Sulfa, Penicillin ??? Allergy ??? Antiplatelet or antithrombotic long-term use on pletal and pradaxa for circulation ??? Cardiac disease PAD ??? Cataract ??? CKD (chronic kidney disease) stage 4, GFR 15-29 ml/min 08/21/2019 ??? Claudication has had proceures in leg [...] Left 07/03/2018 OS - Dr. Szymanski ??? INTRAVITREAL INJECTION Right 06/04/2020 Avastin OD for PDR - DM consent signed inj tech [facility] ??? INTRAVITREAL INJECTION Right 07/08/2020 Avastin OD for PDR - DM inj tech [facility] ??? PRO BLOOD/LYMPH SYSTEM PROCEDURE Right 02/20/2019 EXPLORATION GROIN W\DRAIN & DEBRIDE LYMPHOCELE (WRVU *) performed by Kaity Fontaine MD at [facility] MAIN OR ??? PRO BRONCHOSCOPY, DIAGNOSTIC N/A 06/21/2018 BRONCHOSCOPY, DIAGNOSTIC (WRVU 2.78) performed by César Escobar MD at [facility] OR ? ? PRO DEBRIDEMENT SUBCUTANEOUS TISSUE 20 SQCM/< Right 02/22/2019 DEBRIDEMENT SKIN AND SUBCU, LOWER EXTREMITY (WRVU 1.01) performed by Kaity Fontaine MD at [facility] ? ? PRO DEBRIDEMENT SUBCUTANEOUS TISSUE 20 SQCM/< Right 02/25/2019 DEBRIDEMENT SKIN AND SUBCU, LOWER EXTREMITY (WRVU 1.01) performed by Kaity Fontaine MD at [facility] ? ? PRO DEBRIDEMENT SUBCUTANEOUS TISSUE 20 SQCM/< Right 02/27/2019 DEBRIDEMENT SKIN AND SUBCU, LOWER EXTREMITY (WRVU 1.01) performed by Patricia Jensen MD at [facility] MAIN OR ? ? PRO EDG FLEXIBLE TRANSORAL ABLATE TUMOR POLYP/LESION W/DILATION & WIRE N/A 06/22/2016 EGD, TRANSORAL; WITH ABLATION OF TUMOR(S), POLYP(S), OR OTHER LESION(S) (WRVU 4.26) performed by Christos Donald MD at [facility] ENDOSCOPY ? ? PRO INJECTION ANES AGENT &/ STEROID INTERCOSTAL NERVE EA ADDL LEVEL Right 06/21/2018 NERVE BLOCK, INTERCOSTAL NERVE, MULTIPLE (WRVU 1.68) [facility] ??? PRO REOPERATION, BYPASS GRAFT Right 02/04/2019 @RE-OP FOR RE-DO LOWER EXTREMITY BYPASS GRAFT, >1 MONTH P\ ORIGINAL SURGERY, ADD-ON CODE (WRVU 3.08) performed by Katiy Fontaine MD at [facility] MAIN OR ??? PRO THORACOSCOPY WITH THERAPEUTIC WEDGE RESECTION INITIAL UNILAT Right 06/21/2018 @THORACOSCOPY, SURG; W/THERAPEUTIC WEDGE RESECTION, INIT UNILATERAL (WRVU 14.5) performed by César Escobar MD at [facility] MAIN OR ??? PRO THROMBOENDARTECTMY FEMORAL COMMON Right 02/04/2019 @ENDARTERECTOMY, COMMON FEMORAL W OR W/O PATCH GRAFT (WRVU 15.31) performed by Kaity Fontaine MD [facility] MAIN OR ??? PRO THROMBOENDARTECTMY FEMORAL DEEP Right 02/04/2019 @ENDARTERECTOMY, PROFUNDAPLASTY, DEEP, PROFUNDA FEMORIS W OR W/O PATCH GRAFT (WRVU 18.58) performedby Kaity Fontaine MD at [facility] MAIN OR ??? PRO TX EXTENSIVE RETINOPATHY, PHOTOCOAGULATION Left 2017 PRP OS - [place], [place] ??? PRO UNLISTED PX ABDOMEN MUSCULOSKELETAL SYSTEM Right 02/27/2019 WOUND CLOSURE, ABDOMINAL, PARTIAL W/ WOUND VAC (WRVU 6.39) performed by Patricia Jensen MD at [facility] MAIN OR ??? PRO UPPER GI ENDOSCOPY, BIOPSY N/A 10/24/2016 UPPER GASTROINTESTINAL ENDOSCOPY,WITH BIOPSY SINGLE OR MULTIPLE (WRVU 2.49) performed by Agapito Parmar MD at [facility] ENDOSCOPY ??? PRO UPPER GI ENDOSCOPY, DIAGNOSTIC N/A 06/22/2016 EGD, UPPER GI ENDOSCOPY performed by Christos Donald MD at [facility] ENDOSCOPY ??? RETINAL LASER SURGERY Left 01/20/2012 [...] SFA stents ??? VASCULAR SURGERY 1009 Right JUNIOR ASSISTANT MANAGER-AK pop vein graft ??? VS ARTERIOGRAM LOWER EXTREMITY VASCULAR SURGERY 04/27/2018 VS Arteriogram Lower Extremity Vascular Surgery 04/27/2018 Kaity Fontaine MD [facility] INTERVENTIONL RAD ??? YAG CAPSULOTOMY Bilateral 02/27/15 [...] to Visit Medication Sig Dispense Refill ??? insulin lispro (HumaLOG) Solution 31/10 ??? [...] Diabetic Supplies, Miscellan. Misc Form faxed to [employer] for pump supplies. 100 each 12 ??? losartan (COZAAR) 100 mg Tablet Take 50 mg by mouth daily. ??? Magnesium 250 mg Tab Take by mouth daily. ??? aspirin 81 mg EC tablet Take 81 mg by mouth daily. ??? insulin lispro (HUMALOG) 100 unit/mL injection Inject 55-60 Units subcutaneously continuous. Via insulin pump ??? gabapentin (Neurontin) 300 mg Capsule Take 300 mg by mouth 3 times daily as needed. No current facility-administered medications on file prior to visit. MEDICATIONS: Allergies Allergen Reactions ??? Sulfa (Sulfonamide Antibiotics) Other (See Comments) Renal failure, bleeding ??? Pcn [Penicillins] Unknown ??? Trimethoprim PHYSICAL EXAM: Last value Range last 24 hrs Temperature Temp: -- Heart Rate Heart Rate: 74 Heart Rate: [74] Blood Pressure BP: 159/48 BP: (159)/(48) Respiratory Rate Resp: -- SpO2 SpO2: -- Patient is awake alert did not seem to be in acute distress No pallor no jaundice or mucosa moist Neck- supple trachea central Chest- bilateral air entry present clear to auscultation no wheeze no crepitation CVS-S1-S2 present. Abdomen-nontender nondistended, bowel sounds present. Extremities-peripheral pulses present, trace edema, small vericose veins noted. Neuro-patient is awake alert, moving all 4 limbs, motor examination is grossly normal. STUDIES: Labs: CBC: Recent Labs 07/21/20 1247 WBC 4.8 HGB 11.9 PLATELET 191 Chemistry: No results for input(s): NA, K, CL, CO2, BUN, CREATININE, GLUCOSE in the last 7068 hours. No results for input(s): CALCIUM, MAGNESIUM, PHOS in the last 7068 hours. LFT's: No results for input(s): BILITOT, BILIDIR, [...] IMPRESSION/ RECOMMENDATIONS: ID: 1,CKD stage G3 b A2/ G4 : Kidney function is relatively stable . CKD due to oil heaterman diabetes and HTN Albuminuria and proteinuria worsening. Needs better control of her blood pressure; advised her about the importance of self monitoring of blood pressure at home. 2,HTN: Will continue with losartan and coreg, not regularly checking her blood pressure at home. Pt has hyperkalemia, which is at the upper limit of safety level. If her blood pressure at home runs high we re recommend to add a diuretic, which could help bring down her K, otherwise it is judicious to decrease her Losartan. 3,Bone and Mineral Disease: She is Vit D deficient and has high PTH, recommend Vit D3 2000 units Q daily. 4,Anemia: Hb within target range. Was anemic in Mar 2020 and was started on FeSO4 by her PCP. Currently on Dabigatran 150 BID - recommend that it is adjusted for her renal function. Thanks for letting us participate in the care of this patient. Seen and Discussed w/ Dr. Rader RTC in 6-8 months,. Kalin Bourgeois MD Nephrology Fellow #[id number] * Hussain Rader MD - 07/21/2020 1:30 PM EDT I have seen the patient in person and reviewed the resident's above history and I agree with the details as written. The assessment and plan were formulated in discussion with me and I agree with them as documented. I saw and discussed the patient with the fellow and I agree with the assessment and plan in his note. 59-year-old female with CKD stage IIIb/A2-3 presents for follow-up. 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 Kidney function is stable if not improved from last visit and does have noticeable hemodynamic trend. Recommend patient remain hydrated. Proteinuria approximately half a gram, and patient on optimized dose of RAAS inhibition. She has hyperkalemia, which is right at cusp of safety level. Would continue to monitor and if any higher may need to decrease losartan dose. Blood pressure slightly above goal and recommended that begin systematic measurement at home and is given instructions on proper technique. Is consistently greater than 130/80 mmHg will consider addition of diuretic (this may also help with patient's mild/moderate hyperkalemia). Hemoglobin 11.19g/dL which is improved and patient remains on oral iron supplementation. Patient has completed Covid vaccine doses. documented in this encounter Plan of Treatment Upcoming Encounters Date Type Department Care Team (Late st Contact Info) Description 12/19/2023 1:00 PM EDT Tech [place] [phone] Marguerite Macias 12/19/2023 3:00 PM EDT Office [place] [address] Gardenia Golden, LADARIUS [facility] [place] [address] 01/29/2024 1:[address] [place] [address] César Escobar MD [facility] DR THORACIC SURGERY [place], [place] [id number] 01/29/2024 2:30 PM EDT Office [place] [address] César Escobar MD [facility] [place] [address] documented as of this encounter Visit Diagnoses Diagnosis Anemia of chronic renal failure, stage 3b Stage 3b chronic kidney disease Hypertensive kidney disease with stage 3b chronic kidney disease documented in this encounter Care Teams Emt I/85 Relationship Specialty Start Date End Date Shirley Yu MD [address] [place] [address] PCP - General 11/19/14 documented as of this encounter
--- OUTSIDE RECORDS SUMMARY | 2023-12-13 18:23 | XMS_ITS | Encounter Summary ---
Author Organization Formerly [facility] [place] [address] Care Team Providers Care Health And Wellness Director Name Role Phone Shirley Yu MD Primary Care Provider [phone] Reason for Visit * Reason Comments Procedure Encounter Details Date Type Department Care Team (Latest Contact Info) Description 06/04/2020 8:30 PM EST Procedure visit Ophthalmology at [facility], [place] [address] Bridget Dominguez MD [facility] [place] [address] Proliferative diabetic retinopathy of both eyes without [...] Instructions * Patient Instructions* Sarah Pope - 06/04/2020 8:30 PM EST Today you had your right eye(s) injected [...] about driving: We always recommend having a motor vehicle escort driver on the day you get an [...] Normal and Not Expected side effects: Call [phone] (Eye Clinic) DAY or NIGHT, HOLIDAY or [...] PM EDT Tech [place] [phone] Marguerite Macias 12/19/2023 3:00 PM EDT Office [place] [address] Gardenia Golden APRN [facility] [place] [address] 01/29/2024 1:[address] [place] [place] [phone] César Escobar MD [facility] [place] [address] 01/29/2024 2:30 PM EDT Office [place] [address] César Escobar MD [facility] [place] [address] documented as of this encounter Procedures Procedure Name Priority Date/Time Associated Diagnosis Comments INTRAVITREAL INJECTION PHARMACOLOGIC AGENT - OD - RIGHT EYE Routine 06/04/2020 6:57 PM EST 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 documented in this encounter Results * Intravitreal Injection Pharmacologic Agent - OD - Right Eye (06/04/2020 6:57 PM EST) Anatomical Region Laterality Modality Other Narrative 06/04/2020 6:57 PM EST Pre Operative Diagnosis: Diabetic Macular Edema - Diabetic Retinopathy Post Operative Diagnosis: Diabetic Macular Edema - Diabetic Retinopathy Procedure: Intravitreal injection of Avastin 1.25 mg Right Eye Assist: Territory Manager Anesthesia: Topical Proparacaine and topical 4% Lidocaine Complications: None Procedure: The patient was taken to the minor treatment suite where the patient was reidentified using name and birthdate as critical identifiers. The correct eye as the operative site was reidentified by a preplaced site bill, and the consent form was actively reviewed by the catering assistant and the surgeon. The right eye was prepped including instillation of Betadine 5% into the right cul de sac for 5 minutes, facial prep with ophthalmic Betadine and placement of a lid speculum. The surgeon performed hand washing preoperatively, used gloves, and wore a face mask or used no talking technique during the procedure, as did the manager surgical. After topical anesthesia of the injection site [...] call the Eye Clinic or Eye Doctor vice president of consulting services, should they develop pain in the treated eye, increasing redness or a discharge from the eye. 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
--- OUTSIDE RECORDS SUMMARY | 2023-12-13 18:24 | XMS_ITS | Encounter Summary ---
[place] [address] Care Team Providers Care Tanbark Peeler Name Role Phone Shirley Yu MD Primary Care Provider [phone] Reason for Referral * Diagnostic Test (Routine) - Closed Specialty Diagnoses / Procedures Referred By Contac t Referred To Contact Radiology Diagnoses Pulmonary granuloma Procedures CT Chest wo Contrast (Generic) [facility] Thoracic Surg [address] [place] [phone] [facility] [place] [address] Referral ID Status Reason Start Date Expiration Date V isits Requested Visits Authorized [id number] Closed Specialty Service Requested 04/08/2019 10/07/2020 1 1 Reason for Visit * Diagnostic Test (Routine) - Closed Specialty Diagnoses / Procedures Referred By Contac t Referred To Contact Radiology Diagnoses Pulmonary granuloma Procedures CT Chest wo Contrast (Generic) [facility] Thoracic Surg [address] [place] [phone] [facility] [place] [address] Referral ID Status Reason Start Date Expiration Date V isits Requested Visits Authorized [id number] Closed Specialty Service Requested 04/08/2019 10/07/2020 1 1 Encounter Details Date Type Department Care Team (Latest Contact Info) Description 04/29/2019 10:54 AM EST - 04/29/2019 11:59 PM EST Hospital Encounter CT Scan at [facility] [place] [address] César Escobar MD [facility] [place] [address] Pulmonary granuloma Discharge Disposition: Home Social History [...] Diabetic Supplies, Miscellan. Misc Form faxed to [employer] for pump supplies. 100 each 12 03/23/2015 losartan (COZAAR) 100 mg Tablet Take 50 mg by mouth daily. 08/11/2014 aspirin 81 mg EC tablet Take 81 mg by mouth daily. insulin lispro (HUMALOG) 100 unit/mL injection Inject 55-60 Units subcutaneously continuous. Via insulin pump insulin lispro (HumaLOG) Solution 24/7 01/07/2016 3 glucagon HCl (GLUCAGON, HUMAN RECOMBINANT,) 1 mg Recon Soln Inject 1 mg into the muscle as needed (as needed for hypoglycemia). 1 mL 3 02/18/2019 12/01/2023 acetaminophen (TYLENOL) 500 mg Tablet Take 1 tablet by mouth every 4 hours as needed for Pain. 30 tablet 1 02/08/2019 12/01/2023 oxyCODONE (ROXICODONE) 5 mg Tablet Take 1 tablet by mouth every 4 hours as needed for Pain (for breakthrough pain). 20 tablet 02/08/2019 08/14/2019 levothyroxine (SYNTHROID) 125 mcg Tablet TAKE ONE [...] PM EDT Tech [place] [address] Marguerite Macias 12/19/2023 3:00 PM EDT Office Visit [place] [address] Gardenia Golden, LADARIUS [facility] [place] [address] 01/29/2024 1:[address] [place] [address] César Escobar MD [facility] [place] [address] 01/29/2024 2:30 PM EDT Office Visit [place] [address] César Escobar MD [facility] [place] [address] documented as of this encounter Procedures Procedure Name Priority Date/Time Associated Diagnosis Comments CT CHEST WO CONTRAST (GENERIC) Routine 04/29/2019 11:12 AM EST Pulmonary granuloma documented in this encounter Results * CT Chest wo Contrast (Generic) (04/29/2019 11:12 AM EST) Anatomical Region Laterality Modality Chest Computed Tomogra phy Impressions 04/29/2019 1:46 PM EST 1. ??Interval clearing of RIGHT apical cavity and partial clearing of groundglass and nodular opacities. 2. ??Stable approximately 9 mm nodules in lower lobes. 3. ??Postsurgical findings RIGHT lower lobe. Thank you for letting us participate in the care of this patient. For questions regarding this report, please contact the number below. ? Narrative 04/29/2019 1:46 PM EST EXAMINATION: CT CHEST WO CONTRAST (GENERIC) CLINICAL HISTORY: Granulomatous disorder, skin or subcutaneous tissue s/p R VATS RLL wedge resection x 2 for granulomata, please eval for changes TECHNIQUE: 3.75mm thick axial contiguous sections were obtained through the chest via helical acquisition without intravenous contrast administration. Thin-section reconstructions as well as coronal and sagittal reformatted images were generated. COMPARISON: Chest CT 04/23/2018 FINDINGS: Pulmonary parenchyma: There is an overall slightly better degree of inflation of the lungs. The previous reported cavity in the RIGHT apex and many of the previously ill-defined groundglass opacities and small nodules have disappeared. The largest nodules, in the RIGHT and LEFT lower lobes, each measuring approximately 9 mm in diameter are stable (series 6 images 258 and 341). Incidentally noted are new postsurgical findings including sutures in the RIGHT lower lobe (series 6 image 240). Airways: No significant findings. Pleura: No significant findings. Lymph nodes:No significant findings. Heart, pericardium, and great vessels: Heart size normal. Severe coronary artery and aortic calcification. Other mediastinal structures: No significant findings. Lower neck: No significant findings. Upper abdomen: No significant findings. Body wall soft tissues: No significant findings. Skeletal structures: No significant findings. Procedure Note Taz Crowley MD - 04/29/2019 EXAMINATION: CT CHEST WO CONTRAST (GENERIC) CLINICAL HISTORY: Granulomatous disorder, skin or subcutaneous tissue s/p R VATS RLL wedge resection x 2 for granulomata, please eval forchanges TECHNIQUE: 3.75mm thick axial contiguous sections were obtained throughthe chest via helical acquisition without intravenous contrastadministration. Thin-section reconstructions as well as coronal and sagittal reformattedimages were generated. COMPARISON: Chest CT 04/23/2018 FINDINGS: Pulmonary parenchyma: There is an overall slightly better degree ofinflation of the lungs. The previous reported cavity in the RIGHT apex and many ofthe previously ill-defined groundglass opacities and small nodules havedisappeared. The largest nodules, in the RIGHT and LEFT lower lobes, each measuring approximately 9 mm in diameter are stable (series 6 images 258 and 341). Incidentally noted are new postsurgical findings including sutures in theRIGHT lower lobe (series 6 image 240). Airways: No significant findings. Pleura: No significant findings. Lymph nodes:No significant findings. Heart, pericardium, and great vessels: Heart size normal. Severe coronaryartery and aortic calcification. Other mediastinal structures: No significant findings. Lower neck: No significant findings. Upper abdomen: No significant findings. Body wall soft tissues: No significant findings. Skeletal structures: No significant findings. IMPRESSION 1. Interval clearing of RIGHT apical cavity and partial clearing ofgroundglass and nodular opacities. 2. Stable approximately 9 mm nodules in lower lobes. 3. Postsurgical findings RIGHT lower lobe. Thank you for letting us participate in the care of this patient. Forquestions regarding this report, please contact the number below. César Escobar MD IMG CT ORDERABLE S documented in this encounter Visit Diagnoses Diagnosis Pulmonary granuloma Postinflammatory pulmonary fibrosis documented in this encounter Care Teams Tanbark Peeler Relationship Specialty Start Date End Date Shirley Yu MD [address] [place] [address] PCP - General 11/19/14 documented as of this encounter
--- OUTSIDE RECORDS SUMMARY | 2023-12-13 18:24 | XMS_ITS | Encounter Summary ---
Author [place] [address] Care Team Providers Care Armature Winder Helper Repair Name Role Phone Shirley Yu MD Primary Care Provider [phone] Reason for Visit * Auth/Cert Specialty Diagnoses / Procedures Referred By Dominik mcleod Referred To Contact Diagnoses Groin hematoma right groin hematoma n/a n/a Procedures PRO BLOOD/LYMPH SYSTEM PROCEDURE EXPLORATION GROIN W\DRAIN & DEBRIDE LYMPHOCELE (WRVU *) Referral ID Status Reason Start Date Expiration Date Visits Re quested Visits Authorized [id number] 1 1 Encounter Details Date Type Department Care Team (Late st Contact Info) Description 02/27/2019 5:18 PM EST Anesthesia Event [place] [address] Jakob Beaver MD [facility] [place] [address] Brielle Goyal CRNA [facility] [place] [address] Anesthesia Record Procedure Summary Procedure Name Responsible Anesthesiologist Anesthesia Start Time Anesthesia Stop Time DEBRIDEMENT SKIN AND SUBCU, LOWER EXTREMITY (WRVU 1.01) (Right) Jakob Beaver MD 02/27/19 1718 02/27/19 1810 Events Date Time Event Comment 02/27/2019 1627 1718 AN Verify 1718 Start 1718 An Start Data 1724 An Induction 1726 An Intubation 1734 Quick Note Per surgeon, no antibiotics required. 1736 Anesthesia Ready 1736 Procedure Start 1743 Quick Note Pt received 200 cc of D10 prior to coming to OR for a BG 70's, pt is now in the low 200's and trending downward. 1745 Break/Relief In Macario L Fo x, DIRECTOR OF MOBILE MARKETING 1754 Extubation/LMA Out 1756 an stop data 1807 Recovery or ICU Handoff Deidre ent care was transferred to the destination unit staff after review of the patient's medical history, current anesthetic/surgical status and plan, according to the Provider Handoff Checklist. 1810 Stop Meds Name Total fentaNYL 100 mcg IV Lidocaine 60 mg Propofol 200 mg ePHEDrine 7.5 mg Ondansetron 4 mg Lactated Ringers 200 mL * Agents Name O2 Air N2O Sevoflurane (et) * Blood No blood administrations on file. Lines, Drains, and Airways Type Details Placement Removal NPWT 02/22/19; 1621; groin 02/22/19 1 621 by Taz Guerin RN Incision 02/04/19; 1253; groi n; vertical; 12/06/21 (LDA cleanup utility RA#[id number]); 1715 (LDA cleanup utility RA#[id number]) 02/04/19 1253 by Ava Flynn RN 12/06/21 1715 by Nuris Chacko Incision 02/20/19; 1652; groi n; 12/06/21 (LDA cleanup utility RA#[id number]); 1715 (LDA cleanup utility RA#[id number]) 02/20/19 1652 by Juli Wells RN 12/06/21 1715 by Nuris Chacko Urethral Catheter 02/21/19; 1140; Acut e urinary retention, Physician order; indwelling double lumen catheter; 100% silicone; 14; 1; 10; none; drainage bag to dependent drainage; 02/28/19; 0830 02/21/19 1140 by Vinay Celeste RN 02/28/19 0830 by Hilton Montez, [facility] (RETIRED) Peripheral IV Line - Single Lumen 02/21/19; 1225; cephalic vein (lateral side of arm), left; uhtk-[id number]-xttluj catheter system; 22 gauge, 1 in length; gerda john RN; distraction, intradermal injection; no longer indicated; 03/01/19; 0851 02/21/19 1225 by Gerda John RN 03/01/19 0851 by Tayla De Jesus LNA (RETIRED) Peripheral IV Line - Single Lumen 02/21/19; 1245; cephalic vein (lateral side of arm), right; [id number]-iim-[id number] catheter system; 22 gauge, 1 in length; Gerda John RN; distraction, intradermal injection; 1; median vein (underside of arm), left; no longer indicated; 03/01/19; 0851 02/21/19 1245 by Gerda John RN 03/01/19 0851 by Tayla De Jesus LNA Wound 02/25/19; 1240; abdomen; 12/06/21 (LDA cleanup utility RA#[id number]); 1715 (LDA cleanup utility RA#[id number]) 02/25/19 1240 by Maureen Malone RN 12/06/21 1715 by Nuris Chacko Supraglottic Mask Ventilation: No t Attempted (0); LMA Type: Unique; LMA Size: 3; Inserted by: ELIDA; Removal Date: 02/27/19; Removal Time: 1754 02/27/19 1726 by Joe Hebert Jr., CRNA 02/27/19 1754 by Macario Hicks CRNA documented in this encounter Social History Tobacco Use Types Packs/Day Years [...] on file documented as of this encounter OR Notes * Anesthesia Postprocedure Evaluation - Jakob Beaver MD - 02/27/2019 7:26 PM EST Department of Anesthesiology Post-procedure Note Patient: Jennifer Snyder Procedure Summary Date: 02/27/19 Room / Location: [facility] OR [address] [place] [address] MAIN OR Anesthesia Start: 1717 Anesthesia Stop: 1809 Procedures: DEBRIDEMENT SKIN AND SUBCU, LOWER EXTREMITY (WRVU 1.01) (Right ) WOUND CLOSURE, ABDOMINAL, PARTIAL W/ WOUND VAC (WRVU 6.39) (Right Groin) Diagnosis: (right groin wound infection) Surgeon: Patricia Jensen MD Responsible Provider: Jakob Beaver MD Anesthesia Type: general ASA Status: 3 All Anesthesia Providers: Anesthesiologist: Jakob Beaver MD DIRECTOR OF MOBILE MARKETING: Joe Hebert Jr., CRNA Vitals Value Taken Time BP 141/59 02/27/2019 6:45 PM Temp 36.2 ??C (97.2 ??F) 02/27/2019 6:00 PM Pulse 62 02/27/2019 6:45 PM Resp 14 02/27/2019 6:45 PM SpO2 92 % 02/27/2019 6:57 PM Pain Level 0 02/27/2019 6:45 PM Vitals shown include unvalidated device data. Patient Location: PACU/[facility] Level of Consciousness: Awake and Alert Pain Management: Satisfactory Analgesia PONV: None Cardiovascular Status: At Baseline and Hemodynamically Stable Respiratory Status: At Baseline and Room Air Postoperative Fluid Status: Intravascular EUvolemia Possible Anesthetic Complications: NONE apparent at time of evaluation Final Primary Anesthesia Type: General (The anesthetic type performed was the same as planned.) Comments: JAKOB BEAVER MD * Anesthesia Preprocedure Evaluation - Gus Martell MD - 02/27/2019 4:26 PM EST Pre-Anesthesia Evaluation for: Jennifer Snyder a 58 y.o. female. Procedure(s): DEBRIDEMENT SKIN AND SUBCU, LOWER EXTREMITY (WRVU 1.01) Patient Active Problem List Diagnosis ??? Groin hematoma ??? PVD (peripheral vascular [...] palmaris et plantaris ??? Type 1 diabetes A1C is a little high Past Medical History: Diagnosis Date ??? Allergy [...] *) performed by Kaity Fontaine MD at [facility] MAIN OR ??? PRO BRONCHOSCOPY, DIAGNOSTIC N/A 06/21/2018 BRONCHOSCOPY, DIAGNOSTIC (WRVU 2.78) performed by César Escobar MD at [facility] OR ? ? PRO DEBRIDEMENT SUBCUTANEOUS TISSUE 20 SQCM/< Right 02/22/2019 DEBRIDEMENT SKIN AND SUBCU, LOWER EXTREMITY (WRVU 1.01) [facility] ? ? PRO DEBRIDEMENT SUBCUTANEOUS TISSUE 20 SQCM/< Right 02/25/2019 DEBRIDEMENT SKIN AND SUBCU, LOWER EXTREMITY (WRVU 1.01) performed by Kaity Fontaine MD at [facility] ? ? PRO EDG FLEXIBLE TRANSORAL ABLATE TUMOR POLYP/LESION W/DILATION & WIRE N/A 06/22/2016 EGD, TRANSORAL; WITH ABLATION OF TUMOR(S), POLYP(S), OR OTHER LESION(S) (WRVU 4.26) performed by Christos Donald MD at [facility] ENDOSCOPY ??? PRO INJECT NERV BLCK, INTERCOST, MULTPL Right 06/21/2018 NERVE BLOCK, INTERCOSTAL NERVE, MULTIPLE (WRVU 1.68) [facility] ??? PRO REOPERATION, BYPASS GRAFT Right 02/04/2019 @RE-OP FOR RE-DO LOWER EXTREMITY BYPASS GRAFT, >1 MONTH P\ ORIGINAL SURGERY, ADD-ON CODE (WRVU 3.08) performed by Kaity Fontaine MD at [facility] MAIN OR ??? PRO THORACOSCOPY WITH THERAPEUTIC WEDGE RESECTION INITIAL UNILAT Right 06/21/2018 @THORACOSCOPY, SURG; W/THERAPEUTIC WEDGE RESECTION, INIT UNILATERAL (WRVU 14.5) performed by César Escobar MD at [facility] MAIN OR ??? PRO THROMBOENDARTECTMY FEMORAL COMMON Right 02/04/2019 @ENDARTERECTOMY, COMMON FEMORAL W OR W/O PATCH GRAFT (WRVU 15.31) performed by Kaity Fontaine MD [facility] MAIN OR ??? PRO THROMBOENDARTECTMY FEMORAL DEEP Right 02/04/2019 @ENDARTERECTOMY, PROFUNDAPLASTY, DEEP, PROFUNDA FEMORIS W OR W/O PATCH GRAFT (WRVU 18.58) performedby Kaity Fontaine MD at [facility] MAIN OR ??? PRO TX EXTENSIVE RETINOPATHY, PHOTOCOAGULATION Left 2018 PRP [place] ??? PRO UPPER GI ENDOSCOPY, BIOPSY N/A 10/24/2016 UPPER GASTROINTESTINAL ENDOSCOPY,WITH BIOPSY SINGLE OR MULTIPLE (WRVU 2.49) performed by Agapito Parmar MD at [facility] ENDOSCOPY ??? PRO UPPER GI ENDOSCOPY, DIAGNOSTIC N/A 06/22/2016 EGD, UPPER GI ENDOSCOPY performed by Christos Donald MD at [facility] ENDOSCOPY ??? RETINAL LASER SURGERY Left 01/20/2012 [...] SFA stents ??? VASCULAR SURGERY 1009 Right SUPERVISOR BUFFING AND PASTING-AK pop vein graft ??? VS ARTERIOGRAM LOWER EXTREMITY VASCULAR SURGERY 04/27/2018 VS Arteriogram Lower Extremity Vascular Surgery 04/27/2018 Kaity Fontaine MD [facility] INTER[facility]IONL RAD ??? YAG CAPSULOTOMY Bilateral 02/27/15 YAG CAP OU - Nessa Social History Tobacco Use ??? Smoking status: Former Smoker Packs/day: 0.50 Years: 30.00 Pack years: 15.00 Types: Cigarettes Last attempt to quit: 08/14/2014 Years since quittin.5 ??? Smokeless tobacco: Never Used ??? Tobacco comment: Smoked 1 ppd for 30 years Substance Use Topics ??? Alcohol use: No Social History Substance and Sexual Activity Drug Use No Allergies Allergen Reactions ??? Sulfa (Sulfonamide Antibiotics) Other (See Comments) Renal failure, bleeding ??? Pcn [Penicillins] Unknown Medications: MAR and/or home medications have been reviewed. Physical Exam: Most Recent Vitals: 02/27/19 1609 BP: 113/52 Pulse: Resp: 14 Temp: 36.8 ??C (98.2 ??F) SpO2: 92% Body mass index is 32.97 kg/m??. Height: 170.2 cm (5' 7) Weight: 95.5 kg (210 lb 8 oz) Airway Assessment: Mallampati: III TM distance: >3 FB Neck ROM: full Cardiovascular Assessment: Rate: normal Pulmonary Assessment: pulmonary exam normal Dental Assessment: (+) upper dentures Misc Assessment: IV access: Peripheral line Anesthesia Plan: ASA 3 general, with a(n) intravenous induction 58 y.o., 96kg female with a complex PMH notable for DM with sequelae, HTN, HL, MANISH (CPAP) and peripheral vascular disease s/p common femoral endarterectomy who presents for serial wound debridement. PSHx: s/p 2008 R fem-AK-pop bypass with GSV; 2012 L EIA stent; 04/27/18 R SUPERVISOR BUFFING AND PASTING/proximal graft and distal graft/pop BENEFITS MANAGER, more recent femoral endarterecomy), s/p right wedge resection. Medications: ASA, carvedilol, cilostazol, citalopram, dabigatran, levothyroxine, insulin, losartan,pantoprazole, simvastatin Anesthetic hx: No reported prior complications with anesthesia. LMA #4 without issue for last debridement. Airway hx: prior grade 1 view with Mac 3 06/2018: sinus bradycardia ECHO: none PFTs: 04/2018: isolated reduction in diffusing capacity. FVC 96% FEV1 91% FEV1/FVC 94% DSB 62% Allergies: -- Sulfa (Sulfonamide Antibiotics) -- Renal failure, bleeding -- Pcn (Penicillins) -- Unknown NPO Status: Appropriate Anesthetic Plan: GA with LMA Standard ASA monitoring Perioperative glucose monitoring Adequate IV access Region - Other Informed Consent: Anesthetic plan and risks discussed with patient. Use of blood products discussed with patient who consented to blood products. Plan discussed with DIRECTOR OF MOBILE MARKETING. PAT Clinic Note documented in this encounter Plan of Treatment Upcoming Encounters Date Type Department Care Team (Late st Contact Info) Description 12/19/2023 1:00 PM EDT Tech Visit [place] [address] Marguerite Macias 12/19/2023 3:00 PM EDT Office [place] [address] Gardenia Golden, LADARI[facility] [place] [address] 01/29/2024 1:[address] [place] [address] César Escobar MD [facility] [place] [address] 01/29/2024 2:30 PM EDT Office [place] [address] César Escobar MD [facility] [place] [address] documented as of this encounter Visit Diagnoses Not on filedocumented in this encounter Administered Medications Inactive Administered Medications - up to 3 most recent administrations Medication Order MAR Action Action Date Dose Rate Site ePHEDrine 5 mg/mL multi-dose injection PRN, Starting on Mon02/27/19 at 1747, Until Mon02/27/19 at 1818, Anesthesia Intra-op, Routine Given 02/27/2019 5:47 PM EST 7.5 mg fentaNYL 50 mcg/mL multi-dose injection PRN, Starting on Mon02/27/19 at 1735, Until Mon02/27/19 at 1818, Anesthesia Intra-op, Routine Given 02/27/2019 5:35 PM EST 50 mcg Given 02/27/2019 5:24 PM EST 50 mcg lactated ringers infusion CONTINUOUS PRN, Starting on Mon02/27/19 at 1718, Until Mon02/27/19 at 1818, Anesthesia Intra-op New Bag 02/27/2019 5:18 PM EST lidocaine (PF) (XYLOCAINE) 100 mg/5 mL (2 %) injection PRN, Starting on Mon02/27/19 at 1724, Until Mon02/27/19 at 1818, Anesthesia Intra-op, Routine Given 02/27/2019 5:24 PM EST 60 mg ondansetron (ZOFRAN) injection PRN, Starting on Mon02/27/19 at 1724, Until Mon02/27/19 at 1818, Anesthesia Intra-op, Routine Given 02/27/2019 5:24 PM EST 4 mg propofol (DIPRIVAN) 10 mg/mL bolus injection (Anesthesia) PRN, Starting on Mon02/27/19 at 1724, Until Mon02/27/19 at 1818, Anesthesia Intra-op Given 02/27/2019 5:24 PM EST 200 mg documented in this encounter Care Teams Armature Winder Helper Repair Relationship Specialty Start Date End Date Shirley Yu MD [address] [place] [address] PCP - General 11/19/14 documented as of this encounter
--- OUTSIDE RECORDS SUMMARY | 2023-12-13 18:24 | XMS_ITS | Encounter Summary ---
Author Organization [facility] [place] [address] Care Team Providers Care Sales Agent Pest Control Service Name Role Phone Shirley Yu MD Primary Care Provider [phone] Encounter Details Date Type Department Care Team (Late st Contact Info) Description 03/14/2019 11:30 AM EST Office Visit [place] [address] Gaby Torres PA [facility] [place] [address] PVD (peripheral vascular disease) Social History Tobacco [...] Sign Reading Time Taken Comments Blood Pressure 144/53 03/14/2019 11:27 AM EST Pulse 68 03/14/2019 11:27 AM EST Temperature - - Respiratory Rate 18 03/14/2019 11:27 AM EST Oxygen Saturation 100% 03/14/2019 11:27 AM EST Inhaled Oxygen Concentration - - Weight 94.8 kg (209 lb) 03/14/2019 11:27 AM EST Height 168.9 cm (5' 6.5) 03/14/2019 11:27 AM ES T Body Mass Index 33.23 03/14/2019 11:27 AM EST documented in this encounter Progress Notes * Gaby Torres PA - 03/14/2019 11:30 AM EST Images from the original note were not included. Vascular Follow-Up Reason for Visit: Jennifer Snyder is a 58 y.o. female presenting for wound check. HPI: Jennifer Snyder is a 58 y.o. female and former smoker with a PMH of DM, HTN, HLD, and PAD with claudication s/p L EIA stent, R INDOOR PLANT TECHNICIAN angioplasty, R INDOOR PLANT TECHNICIAN to popliteal bypass in 2012 s/p R EIA and femoral endarterectomy with [id number] of proximal bypass, R profunda plasty for bypass restenosis on 02/04/19. Patient developed R groin hematoma requiring debridement and washout on 02/20/19. She underwent subsequent debridements with vac changes, and underwent partial closure on 02/22/19 and 02/27/19. Patient states that she is doing well. She denies any pain, erythema or drainage from R groin wound. Denies fevers and chills. Denies any BLE rest pain, claudication or tissue loss. Denies chest painand dyspnea. Current wound care with wound vac every M-W-. On ASA, Pradaxa and statin therapy. Review of systems: Negative except as noted in HPI. Prior Vascular Hx: 09/11/2012: L EIA stent placement (8x60mm Everflex dilated to 7mm), R INDOOR PLANT TECHNICIAN arteriogram, R INDOOR PLANT TECHNICIAN angioplasty (Milana 5x40mm to 6 elias), R INDOOR PLANT TECHNICIAN to popliteal vein bypass angiogram, proximal R bypass angioplasty (Milana 5x40mm to 6 elias) for LLE claudication. (Juan Alberto) 12/05/2018: RLE angiogram. (Ronald) 02/04/2019: Right external iliac and femoral endarterectomy, revision of proximal vein bypass, withbovine patch angioplasty - redo incision - 22 modifier, right profunda plasty with bovine patch angioplasty for RLE bypass restenosis. (Zhen) 02/20/2019: Right groin washout and debridement for R groin hematoma. (Zhen) 02/22/19: RIGHT groin debridement of subcutaneous tissue, partial closure of right groin wound and wound vac change for R groin wound infection. 02/27/19: Right groin wound, partial closure, wound vac change for R groin wound infection. Atherosclerotic RF: DM (Y) HTN (Y) CAD (N) CHF (N) HLD (Y) CVA (N) Tobacco (Y) - Former smoker. Problem List: Patient Active Problem List Diagnosis Code ??? 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 Intermittent claudication I73.9 ??? PAD (peripheral artery disease) I73.9 ??? Atherosclerosis of autologous vein bypass graft of extremity I70.409 ??? Carotid stenosis I65.29 ??? PDR (proliferative diabetic retinopathy) E11.3599 ??? Obesity E66.9 ??? Hypertension I10 ??? Hyperlipidemia E78.5 ??? Sleep apnea G47.30 ??? Hypothyroidism E03.9 ??? Depression F32.9 ??? Proliferative diabetic retinopathy of left eye E11.3592 ??? Lung nodule R91.1 ??? PVD (peripheral vascular disease) I73.9 ??? Type 1 diabetes E10.9 ??? Groin hematoma S30.1XXA Medications: Current Outpatient Medications on File Prior to Visit Medication Sig Dispense Refill ??? glucagon HCl (GLUCAGON, HUMAN RECOMBINANT,) 1 mg Recon Soln Inject 1 mg into the muscle as needed (as needed for hypoglycemia). (Patient not taking: Reported on 02/20/2019) 1 mL 3 ??? acetaminophen (TYLENOL) 500 mg Tablet Take 1 tablet by mouth every 4 hours as needed for Pain. 30 tablet 1 ??? oxyCODONE (ROXICODONE) 5 mg Tablet Take 1 tablet by mouth every 4 hours as needed for Pain (forbreakthrough pain). 20 tablet 0 ??? dabigatran (PRADAXA) 150 mg Capsule Take 1 capsule by mouth 2 times daily. 180 capsule 0 ??? insulin aspart U-100 (NOVOLOG U-100 INSULIN ASPART) Solution Inject subcutaneously 3 times daily (with meals). ??? levothyroxine (SYNTHROID) 125 mcg Tablet TAKE ONE TABLET BY MOUTH EVERY DAY 90 tablet 3 ??? simvastatin (ZOCOR) 40 mg Tablet ??? ONETOUCH ULTRA TEST Strip 1 strip by Other route 4 times daily. 4 ??? citalopram (CELEXA) 40 mg Tablet Take 20 mg by mouth 2 times daily. ??? pantoprazole (PROTONIX) 40 mg Tablet, Delayed Release (E.C.) TAKE ONE TABLET BY MOUTH TWICE A DAY 98 ??? carvedilol (COREG) 3.125 mg Tablet Take 1.56 mg by mouth 2 times daily (with meals). ??? Diabetic Supplies, Miscellan. Misc Form faxed to [employer] for pump supplies. 100 each 12 ??? [...] on file prior to visit. Physical Exam: GEN: Alert and appears stated age. Cooperative. In NAD. HEENT: Normocephalic and atraumatic. CV: RRR. S1/S2 present. Pulm: Clear to auscultation bilaterally. Abd: No palpable aortic pulse or abdominal mass. Soft, non-distended, non-tender to palpation. Skin: Color, texture, turgor normal. No rashes or lesions. Neuro: No gross sensory or motor abnormality. Extremities: R groin incisional wound with granulation tissue throughout, scant slough at mid lateral border - no surrounding erythema, scant sanguinous drainage, cam and sutures intact at inferior border. Palpable R DP and PT pulses. Bilateral UE and LE warm and pink. No edema. Labs: No results found for this or any previous visit (from the past 24 hour(s)). Studies: No results found for this or any previous visit (from the past 24 hour(s)). Assessment/Plan: Jennifer Snyder is a 58 y.o. female s/p R groin hematoma evacuation s/p multiple debridements and partial wound closure. R groin incisional wound and incision sites are healing wellwithout signs of infection. Cam and sutures removed in clinic today. R groin incisional wound is superficial, will start daily NSS wet to dry dressings. Continue ASA, Pradaxa and statin therapy. Continue tight control of co-morbidities and abstinence from smoking. Follow-up in 1-2 weeks for wound check. Follow-up with Dr. Fontaine on 04/01/19 with ABIs and BPG duplex. Instructed to call the clinic with any concerns prior to next appointment including development of erythema, drainage, odor, pain, fevers or chills. Gaby Torres PA-C documented in this encounter Plan of Treatment Upcoming Encounters Date Type Department Care Team (Late st Contact Info) Description 12/19/2023 1:00 PM EDT Tech Visit Vascular Lab at [place] [phone] Marguerite Macias 12/19/2023 3:00 PM EDT Office Visit Vascular Surgery at [place] [phone] Gardenia Golden, LADAR[facility] [place] [address] 01/29/2024 1:[address] [place] [address] César Escobar MD [facility] [place] [address] 01/29/2024 2:30 PM EDT Office [place] [address] César Escobar MD [facility] DR THORACIC SURGERY [place], [place] [id number] documented as of this encounter Visit Diagnoses Diagnosis PVD (peripheral vascular disease) Peripheral vascular disease, unspecified documented in this encounter Care Teams Sales Agent Pest Control Service Relationship Specialty Start Date End Date Shirley Yu MD [address] [place] [address] PCP - General 11/19/14 documented as of this encounter
--- OUTSIDE RECORDS SUMMARY | 2023-12-13 18:24 | XMS_ITS | Encounter Summary ---
Author Organization [facility] [place] [address] Care Team Providers Care Chicken Fancier Name Role Phone Shirley Yu MD Primary Care Provider [phone] Reason for Referral * Diagnostic Test (Routine) - Closed Specialty Diagnoses / Procedures Referred By Dominik mcleod Referred To Contact Radiology Diagnoses Pulmonary granuloma Procedures CT Chest wo Contrast (Generic) [facility] Thoracic Surg [address] [place] [address] [facility] [place] [address] Referral ID Status Reason Start Date Expiration Date V isits Requested Visits Authorized [id number] Closed Specialty Service Requested 04/08/2019 10/07/2020 1 1 Encounter Details Date Type Department Care Team (Late st Contact Info) Description 04/08/2019 Orders Only [place] [address] Kayla Poe, RN Pulmonary granuloma Social History Tobacco Use [...] PM EDT Tech [place] [phone] Marguerite Macias 12/19/2023 3:00 PM EDT Office Visit [place] [address] Gardenia Golden APRN [facility] [place] [address] 01/29/2024 1:[address] [place] [address] César Escobar MD [facility] [place] [address] 01/29/2024 2:30 PM EDT Office Visit [place] [address] César Escobar MD [facility] [place] [address] documented as of this encounter Results * [...] report, please contact the number below. ? Electronically signed by: DENNIS Hatfield [facility] ([phone]), at 04/29/2019 1:46 PM Narrative 04/29/2019 1:46 PM EST EXAMINATION: CT [...] fibrosis documented in this encounter Care Teams Chicken Fancier Relationship Specialty Start Date End Date Shirley Yu MD [address] [place] [address] PCP - General 11/19/14 documented as of this encounter
--- OUTSIDE RECORDS SUMMARY | 2023-12-13 18:24 | XMS_ITS | Encounter Summary ---
Author Organization [facility] [place] [address] Care Team Providers Care Automotive Repair Technician Name Role Phone Shirley Yu MD Primary Care Provider Reason for Visit * Reason Comments Wound Check wound check Encounter Details Date Type Department Care Team (Late st Contact Info) Description 03/28/2019 2:30 PM EST Office Visit [place] [address] Rachna Caballero MD [facility] [place] [address] PAD (peripheral artery disease) Social History Tobacco Use Types Packs/Day [...] Sign Reading Time Taken Comments Blood Pressure 173/61 03/28/2019 2:45 PM EST Pulse 69 03/28/2019 2:45 PM EST Temperature - - Respiratory Rate 18 03/28/2019 2:45 PM EST Oxygen Saturation - - Inhaled Oxygen Concentration - - Weight 94.7 kg (208 lb 12.8 oz) 03/28/2019 2:45 PM EST Height 168.9 cm (5' 6.5) 03/28/2019 2:45 PM EST Body Mass Index 33.2 03/28/2019 2:45 PM EST documented in this encounter Progress Notes * Rachna Caballero MD - 03/28/2019 2:30 PM EST Vascular Surgery Clinic Visit Jennifer Snyder is a 58 y.o. female and former smoker with a PMH of DM, HTN, HLD, and PAD with claudication s/p L EIA stent, R OBJECTIVE C DEVELOPER angioplasty, R OBJECTIVE C DEVELOPER to popliteal bypass in 2012 s/p R EIA and femoral endarterectomy with [id number] of proximal bypass, R profunda plasty for bypass restenosis on 02/04/19. Patient developed R groin hematoma requiring debridement and washout on 02/20/19. She underwentsubsequent debridements with vac changes, and underwent partial closure on 02/22/19 and 02/27/19. [facility] called to say that the wound has nearly healed and is too small for wet to dry dressings. Pt feels well, denies fevers, drainage, or pain. Denies claudication or rest pain. On exam, right groin wound very superficial, measuring about 1.5cm long by 0.5cm wide and very shallow with granulation base and edges nearly apposed. Palpable right fem-pop graft pulse in the mid-thigh. Palpable DP pulse on right. Agree that wound no longer requires wet to dry. Applied Medihoney and covered with clean dry gauze.Should do this daily at home. Patient demonstrated being able to do it herself and is agreeable to this plan. Will return next week for dedicated vascular lab studies. Rachna Caballero MD, MS Section of Vascular Surgery documented in this encounter Plan of Treatment Upcoming Encounters Date Type Department Care Team (Late st Contact Info) Description 12/19/2023 1:00 PM EDT Tech Visit [place] [address] Marguerite Macias 12/19/2023 3:00 PM EDT Office Visit Vascular Surgery at [place] [phone] Gardenia Golden APRN [facility] [place] [address] 01/29/2024 1:[address] Scan at [place] [phone] César Escobar MD [facility] [place] [address] 01/29/2024 2:30 PM EDT Office Visit [place] [phone] César Escobar MD [facility] [place] [address] documented as of this encounter Visit Diagnoses Diagnosis PAD (peripheral artery disease) Peripheral vascular disease, unspecified documented in this encounter Care Teams Automotive Repair Technician Relationship Specialty Start Date End Date Shirley Yu MD [address] [place] [address] PCP - General 11/19/14 documented as of this encounter
--- OUTSIDE RECORDS SUMMARY | 2023-12-13 18:24 | XMS_ITS | Encounter Summary ---
[place] [address] Care Team Providers Care Facilities And Grounds Director Name Role Phone Shirley Yu MD Primary Care Provider [phone] Reason for Visit * Reason Comments Circulatory Problem S/P RIGHT FEM POP NJ OX ANASTOMOSIS WOUND HEALING WELL Encounter Details Date Type Department Care Team (Late st Contact Info) Description 04/01/2019 2:45 PM EST Office Visit [place] [phone] Jaxon Fontaine MD [facility] [place] [address] PVD (peripheral vascular disease); Bilateral carotid artery [...] Sign Reading Time Taken Comments Blood Pressure 181/66 04/01/2019 2:28 PM EST Pulse 69 04/01/2019 2:28 PM EST Temperature - - Respiratory Rate 18 04/01/2019 2:28 PM EST Oxygen Saturation - - Inhaled Oxygen Concentration - - Weight 94.3 kg (208 lb) 04/01/2019 2:28 PM EST Height 168.9 cm (5' 6.5) 04/01/2019 2:28 PM EST Body Mass Index 33.07 04/01/2019 2:28 PM EST documented in this encounter Progress Notes * Jaxon Fontaine MD - 04/01/2019 2:45 PM EST Images from the original note were not included. Vascular Surgery Clinic Visit April 01, 2019 CC: Patient is a 58 y.o. female who is here for follow up of carotid stenosis and PVD. 2000 L CEA (Dr Fong) 2004 R CEA (Dr Avendano) ?? 2007 R fem-AK-pop bypass with GSV (Dr Avendano) 2012 L EIA stent (8x60 SE p7), RLE vein graft STERILE SUPPLY TECHNICIAN (Dr Avendano) ?? 04/27/18 R AUTO CLOCKS REPAIRER/proximal graft and distal graft/pop STERILE SUPPLY TECHNICIAN (6mm and 5mm balloons) 02/04/19 Redo R femoral endarterectomy/profundaplasty, revision of proximal vein graft c/b wound breakdown requiring I&D ?? Presents for scheduled follow up visit. Right groin wound has healed well. Doing well at home now without any claudication, rest pain or non-healing wounds. Denies any symptoms in LLE. No symptoms concerning for stroke, TIA, or amaurosis fugax. ?? ROS is negative for history of CAD, ME, CP, or SOB. Has DM, on??insulin pump. Is a past smoker, having quit in??2014. ?? PMH:??HTN, HLD, DM, hyperthyroidism, RLL wedge resection for pulmonary granuloma 06/25,??GINGER/BSO '02 All:??sulfa, PCN Meds include:??asa, pradaxa, coreg, losartan, zocor, protonix, synthroid, insulin, celexa ?? Tob:??quit 2014 FHx:??neg for coagulopathy Physical Exam: On exam, she is in NAD, RRR, CTA B, Abd soft/NT/ND. Right groin incision healed with small shallow area of granulation tissue. No open lesions on either foot. Neuro non-focal. Labs: Paintings Conservator (03/01/19): 1.83 Lipids (10/14/14): TC 160, HDL 78 HbA1C (01/25/18): 8.4 Imaging studies: I have personally reviewed the following imaging studies. Carotid duplex (01/06/18): < 15% on the right, 50-69% on the left RLE graft duplex (04/01/19): Findings: Right Fem-Pop AK SEGMENT ? PSV (cm/s) ??EDV ?? Right Inflow Artery (Graft) ? 74 ?0 ?? Inflow Anastomosis, Right ? 60 ?0 ?? Right Proximal Graft ?65 ?0 ?? Right Mid Graft ? 52 ?0 ?? Right Low Thigh (Graft) ? 63 ?0 ?? Right Distal Graft ?65 ?0 ?? Outflow Anastomosis, Right ? 113 ?0 ?? Right Outflow Artery (Graft) ? 179 ?0 ? Interpretation: RIGHT: Patent common femoral to above knee popliteal artery bypass graft with no evidence of stenosis. No identifiable change when compared to the previous exam on 02/08/2019. SHEFALI (04/01/19): 1.04/0.60 A/P: 58yo female s/p B CEAs with known asymptomatic recurrent moderate left carotid stenosis and PVD s/p multiple interventions as above, most recently s/p redo R femoral endarterectomy and vein graft revision, doing well. -con't asa, pradaxa, and statin -con't smoking cessation -regular exercise -f/u 6mo with carotid duplex, RLE graft duplex, and SHEFALI Jaxon Fontaine MD documented in this encounter Plan of Treatment Upcoming Encounters Date Type Department Care Team (Late st Contact Info) Description 12/19/2023 1:00 PM EDT Tech [place] [address] Marguerite Macias 12/19/2023 3:00 PM EDT Office Visit [place] [phone] Gardenia Golden APRN [facility] [place] [address] 01/29/2024 1:[address] [place] [address] César Escobar MD [facility] [place] [address] 01/29/2024 2:30 PM EDT Office [place] [address] César Escobar MD [facility] [address] THORACIC SURGERY [place], [place] [phone] documented as of this encounter Results * Unilat Bypass Graft Assess (10/24/2019 10:06 AM EDT) Pathologist [facility] Text Report Department: Vascular Surgery Lab Patient: [id number] (JENNIFER SNYDER) CPT: 79536 ICD10: I73.9;I70.211 Referring Physician: JAXON FONTAINE MD ?? Phone: Indications: Right AUTO CLOCKS REPAIRER - AK popliteal artery bypass graft, ? [...] ORDERABLES VASCUBASE * SHEFALI, legs, multiple levels (10/24/2019 10:06 AM EDT) VB Text Report Department: Vascular Surgery Lab Patient: [id number] (JENINFER SNYDER) CPT: 48102 ICD10: I73.9;I70.213 Referring Physician: JAXON FONTAINE MD [...] ? Posterior Tibial (Ankle) Artery ??92 ?0.59 ??Kenedy-Biphasic ? Great Toe ?47 ? 0.30 ?? [...] VASCULAR ORDERABLES VASCUBASE * Carotid Duplex, Bilateral (10/24/2019 10:06 AM EDT) VB Text Report Department: Vascular Surgery Lab Patient: [id number] (JENNIFER SNYDER) CPT: 32082 ICD10: I65.23 Referring Physician: JAXON FONTAINE MD [...] infarction documented in this encounter Care Teams Facilities And Grounds Director Relationship Specialty Start Date End Date Shirley Yu MD [address] [place] [address] PCP - General 11/19/14 documented as of this encounter
--- OUTSIDE RECORDS SUMMARY | 2023-12-13 18:24 | XMS_ITS | Encounter Summary ---
[place] [address] Care Team Providers Care Tube Coremaker Name Role Phone Shirley Yu MD Primary Care Provider [phone] Reason for Visit * Auth/Cert Specialty Diagnoses / Procedures Referred By Dominik mcleod Referred To Contact Diagnoses Groin hematoma right groin hematoma n/a n/a Procedures PRO BLOOD/LYMPH SYSTEM PROCEDURE EXPLORATION GROIN W\DRAIN & DEBRIDE LYMPHOCELE (WRVU *) Referral ID Status Reason Start Date Expiration Date Visits Re quested Visits Authorized [id number] 1 1 Encounter Details Date Type Department Care Team (Latest Contact Info) Description 02/20/2019 1:57 PM EST - 03/01/2019 4:03 PM [facility] Hospital Encounter [address] [place] [id number] Kaity Fontaine MD [facility] [place] [address] Hematoma; Hematoma of groin, subsequent encounter; PAD (peripheral artery disease); PVD (peripheral vascular disease) Discharge Disposition: Home with VNA Social History Tobacco Use Types Packs/Day Years [...] Sign Reading Time Taken Comments Blood Pressure 121/63 03/01/2019 11:34 AM EST Pulse 62 03/01/2019 8:30 AM EST Temperature 36.8 ??C (98.2 ??F) 03/01/2019 11:[address] Respiratory Rate 16 03/01/2019 11:34 AM EST Oxygen Saturation 96% 03/01/2019 11:34 AM EST Inhaled Oxygen Concentration - - Weight 93.6 kg (206 lb 4.8 oz) 03/01/2019 6:11 A M EST Height 170.2 cm (5' 7.01) 02/28/2019 7:42 AM ES T Body Mass Index 32.3 02/28/2019 7:42 AM EST documented in this encounter Discharge Summaries * Nathaly Victor APRN - 03/01/2019 12:40 PM EST Inpatient - Discharge Summary Patient Name: Jennifer Branch Patient Age: 58 y.o. Birthdate: 1960 Admit date: 02/20/2019 Discharge date and time: 03/01/2019 Attending Physician: Kaity Fontaine MD Discharging Provider: Nathaly Victor APRN Discharging Service: Vascular Surgery Operations/Major Procedures: 02/20/19 Right groin washout and debridement?? 02/22/2019: Right groin debridement, wound vac dressing change 02/25/2019: Right groin wound vac dressing change 02/27/2019: Abdominal closure, partial Wound vac change under anesthesia ?? Active Hospital Problems: Active Hospital Problems Diagnosis ??? Groin hematoma Resolved Hospital Problems No resolved problems to display. Active Non Hospital Problems: Active Non-Hospital Problems Diagnosis ??? PVD (peripheral vascular disease) ??? Lung nodule ??? Proliferative diabetic retinopathy of left eye ??? Obesity ??? Hypertension ??? Hyperlipidemia ??? Sleep apnea ??? Hypothyroidism ??? Depression ??? PDR (proliferative diabetic retinopathy) ??? Intermittent claudication ??? PAD (peripheral artery disease) ??? 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 Carotid stenosis ??? Hyperkeratosis palmaris et plantaris ??? Type 1 diabetes History of Presentation: Jennifer Branch is a 58 y.o. female with PMH DM, former smoker, PAD who was found to have stenosisin her RLE proximal vein bypass. 02/04/19 she underwent right femoral endarterectomy, revision of proximal vein bypass, with bovine patch angioplasty,??Right profundaplasty with bovine patch angioplasty. She presented to vascular surgery clinic and was found to have a hematoma which was activelydraining. Pt will require admission and OR for right groin washout and wound vac placement. She is on pradaxa for bypass patency. ?? Hospital Course: In surgery, the judd and suture were removed from the proximal two-thirds of the wound. The were murky appearing hematoma which was cultured. Clots were evacuated from the wound. The wound was then pulse irrigated with bacitracin solution, it was found to track laterally along the inguinal ligament. The wound was packed with betadine soaked kerlix. She returned to the OR for further debridements on 02/25 and 02/27/19 She was admitted to hospital for postoperative observation and management. Patient's recovery went well, with good PO intake, adequate output following mazariegos removal on 02/27/19 Her pain was well controlled and she tolerated bedside vac change without premedication. Patient worked with PT/OT and was cleared for discharge to home. She will have VNA services for wound care. She is medically stable and cleared for discharge to home. To return to clinic for wound check in 2 weeks. ?? Day of discharge exam: BP 121/63 Pulse 62 Temp 36.8 ??C (98.2 ??F) Resp 16 Ht 170.2 cm (5' 7.01) Wt 93.6 kg (206 lb 4.8 oz) SpO2 96% BMI 32.30 kg/m?General: NAD, resting comfortably HEENT: PERRL, anicteric sclerae Neck: trachea midline Heart:: regular rate Pulmonary: non-labored breathing Abdomen: soft, non tender, non distended Neuro: no focal deficits Extremities: wound vac in place in right groin, no evidence of hematoma Able to wiggle toes and plantar/dorsiflex at ankle ?? Sensation intact to light touch Palpable DP and PT pulses. ??PT faint, easily dopplerable. Skin warm and well perfused ?? Important Studies and Lab Data: Labs: CBC Lab Results Component Value Date WBC 9.0 03/01/2019 Hemoglobin 10.1 (L) 03/01/2019 Hematocrit 33.1 (L) 03/01/2019 Platelets 276 03/01/2019 Discharge Condition: Good Discharge to: Home with VNA Future Appointments and Orders Future Appointments and Orders Future Appointments Provider Department Dept Phone 01/31/2020 12:15 PM Bridget Dominguez MD; DILATION AND TEST, DM; TECH, DM Ophthalmology at [facility] [place] Arrive at: Test Engineering Technician Area [phone] Future Orders Complete By Expires SHEFALI, legs, multiple levels [VAS8 Custom] 03/31/2019 (Approximate) 06/30/2019 Process Instructions: There is no in-house vascular clinical laboratory medical director available on weeknights (5pm-8am), weekends, or holidays. IF THIS IS A REQUEST FOR AN EMERGENT STUDY DURING THOSE HOURS, please have the senior provider responsible for the patient page the Vascular Surgery Fellow/Senior Resident cardiac catheterization technician to discuss options. Scheduling Instructions: Questions: Indication for study/signs & symptoms: PAD Question to be answered: change in blood flow to feet Preferred location?: [facility] Arterial Duplex Leg, Unil [VAS32 Custom] 03/31/2019 (Approximate) 09/30/2019 Process Instructions: There is no in-house vascular clinical laboratory medical director available on weeknights (5pm-8am), weekends, or holidays. IF THIS IS A REQUEST FOR AN EMERGENT STUDY DURING THOSE HOURS, please have the senior provider responsible for the patient page the Vascular Surgery Fellow/Senior Resident cardiac catheterization technician to discuss options. Scheduling Instructions: Questions: Indication for study/signs & symptoms: s/p RIGHT fem-pop proximal anastomosis redo, ? change Question to be answered: patency Laterality: Right Is there a RIGHT LOWER EXTREMITY graft?: Yes RIGHT Graft Location: fem pop Preferred location?: [facility] Referral to Home Health - at DISCHARGE [[id number] CPT(R)] As directed Process Instructions: Scheduling Instructions: Comments: DOCUMENTATION FOR VNA SERVICES (INCLUDING THOSE PATIENTS WITH MEDICARE COVERAGE REQUIRING HOME VNA SERVICES AND/OR HOSPICE SERVICES) PATIENT'S LOCATION: Jennifer Branch [address] [place] [phone] (home) Cell: No relevant phone numbers on file. Forger Helper's Name: self In discussion with the attending physician, it is certified that this patient is under their care and that they, or a Nurse Practitioner,Clinical Nurse specialist or Physician Hose Cementer who is working directly with them, had a face to face encounter that meets the physician face to face encounter requirements with this patient on 03/01/19 The encounter with the patient was in whole, or in part, for the following medical condition, whichis the primary reason for home health care services: Surgical wound infection. In discussion with the provider, it is certified that, based on their findings, the following services are medically necessary for home health services. To provide the following care/treatments with the clinical findings supporting the need for services as follows: HOME CARE ORDERS: RN ORDERS:Assess wound or incision, vital signs, cardiopulmonary status, nutrition, hydration, elimination, meds effectiveness and management; reinforce education re health issues. Please provide assistance with [employer] wound vac and change wound vac dressings as indicated below: Vascular to fill in with days of wound vac change and any other details r/t wound vac. VAC Therapy (Negative Pressure Wound Therapy) is to be used as follows: 1. Apply dressing to wounds located: right groin 2. Use black foam (black or white), one piece of foam 3. Pressure setting carol be @ 125 mm/Hg on continuous 4. Dressing shall be changed on Monday, Monday, Monday 5. Any other wound material used on wound bed as part of VAC therapy? no 6. Irrigate wound between dressing changes? no 7. Can pt take a shower? yes 8. If known, what is the expected length of treatment? unknown 9. Saline wet to moist gauze dressing may by used per and changed 1-2 times per day when: 1- VAC supplies are not available, 2- If dressing develops an air leak after hours and client or significant other cannot patch it, 3- If dressing develops a fluid leak, 4- If client cannot tolerate VAC dressing changes, 5-If electrical supply to pump is interrupted for more that 2 hours, 6-For other problems necessitating cessation or delay in VAC dressing treatment. 10. If and when appropriate VNA may instruct client or significant other in removal of VAC dressingand application of prn wet to moist dressing. 11. If appropriate client/ significant other may be instructed to change canister, patch leaks, remove dressing, change VAC dressing. PT ORDERS: Continue rehab for endurance, gait stability and strength with mobility and transfers. Home safety evaluation. Home exercise program if appropriate. OT: assess and continue rehab for managing ADL's. HOME HEALTH CARE AGENCY: [facility] PHONE: [phone] FAX: [phone] Start of care: 24-48 hours post discharge FOR MEDICARE ONLY: In discussion with the attending physician, it is certified that the clinical findings support thatthis patient is homebound because absences from home require considerable and taxing effort due to:restricted mobility due to lower extremity strength and motion due to surgery, unable to ambulate community surfaces or distances uanassisted due to pain, decreased balance Please note that any additional orders needs or changes will need to be obtained from this patient's PCP: Shirley Yu MD [address] / [place] [address] All VNA agencies which cover the area of patient's residence have been reviewed, either verbally christo writing, and patient/family have chosen the home health care agency noted Questions: Agency name and contact information: [facility] Patient location post discharge: [facility] What services are requested: Registered Nurse Start date: Responsible MD post discharge contact info: PCP Anticoagulation & Antiplatelet: Anticoagulation: Pradaxa Antiplatelet: ASA Discharge Medications: Your Medications Continued medications, unchanged Dose Details acetaminophen 500 mg Tab Commonly known as: TYLENOL Take 1 tablet by mouth every 4 hours as needed for Pain. 500 mg Quantity: 30 tablet Refills: 1 aspirin 81 mg Tbec Take 81 mg by mouth daily. 81 mg Refills: 0 carvedilol 3.125 mg Tab Commonly known as: COREG Take 1.56 mg by mouth 2 times daily (with meals). 1.56 mg Refills: 0 citalopram 40 mg Tab Commonly known as: CeleXA Take 20 mg by mouth 2 times daily. 20 mg Refills: 0 dabigatran 150 mg Cap Commonly known as: PRADAXA Take 1 capsule by mouth 2 times daily. 150 mg Quantity: 180 capsule Refills: 0 Diabetic Supplies, Miscellan. Misc Form faxed to [employer] for pump supplies. Quantity: 100 each Refills: 12 glucagon (human recombinant) 1 mg Solr Inject 1 mg into the muscle as needed (as needed for hypoglycemia). 1 mg Quantity: 1 mL Refills: 3 insulin lispro Soln Commonly known as: HumaLOG Inject 55-60 Units subcutaneously continuous. Via insulin pump 55-60 Units Refills: 0 levothyroxine 125 mcg Tab Commonly known as: SYNTHROID TAKE ONE TABLET BY MOUTH EVERY DAY Quantity: 90 tablet Refills: 3 losartan 100 mg Tab Commonly known as: COZAAR Take 50 mg by mouth daily. 50 mg Refills: 0 magnesium 250 mg Tab Take by mouth daily. Refills: 0 NovoLOG U-100 Insulin aspart Soln Inject subcutaneously 3 times daily (with meals). Generic drug: insulin aspart U-100 Refills: 0 OneTouch Ultra Test Strp 1 strip by Other route 4 times daily. Generic drug: blood sugar diagnostic strips 1 strip Refills: 4 pantoprazole 40 mg Tbec Commonly known as: PROTONIX TAKE ONE TABLET BY MOUTH TWICE A DAY Refills: 98 simvastatin 40 mg Tab Commonly known as: ZOCOR Refills: 0 STOPPED Medications clindamycin 300 mg Cap Commonly known as: CLEOCIN UNREVIEWED medications - Discuss With Your Provider Dose Details oxyCODONE 5 mg Tab Commonly known as: ROXICODONE Take 1 tablet by mouth every 4 hours as needed for Pain (for breakthrough pain). 5 mg Quantity: 20 tablet Refills: 0 Updated Allergies/ADRs: Allergies Allergen Reactions ??? Sulfa (Sulfonamide Antibiotics) Other (See Comments) Renal failure, bleeding ??? Pcn [Penicillins] Unknown Follow-up Recommendations for Providers: Please call with fevers chills, wound erythema, drainage, odor or questions/concerns Instructions Given to Patient at Discharge: Patient Instructions Patient Instructions You were admitted on 02/20/2019 for management of your right groin surgical wound. All of this wentvery well. Dr. Fontaine will want you to be seen in approximately one month with ABIs and a duplex of your bypass. All of this will be ordered and sent to you in the mail. If for some reason you don't receive this within a week or so please call our office as your followup is very important. Anticoagulation: Pradaxa Call your doctor if: Any fever, any drainage, redness or separation of your incision, increased pain or change in temperature of your leg Activity level: up as tolerated but watch for swelling of your leg. Manage this with leg elevation,toes higher than your nose and also can use acewrapping from your foot to below knee, tape in place, rewrap as necessary. Diet: resume your previous regular diet Driving: none right now with pain medication use Shower/Bath: ok to shower and wash all incisions under running water, pat dry. No soaking in a pool/bath/hottub for 2-4 weeks Wound Care: Visiting nurses will manage your wound vac For any problems or questions please call [phone] BREONNA Hou, juvenile counselor Nurse Clinician For issues on weeknights after 5pm and weekends please call [phone] and ask for the Vascular Fellow cardiac catheterization technician. documented in this encounter Discharge Instructions * Patient Instructions* Nathaly Victor, LADARIUS - 02/22/2019 7:43 AM EST Patient Instructions You were admitted on 02/20/2019 for management of your right groin surgical wound. All of this wentvery well. Dr. Fontaine will want you to be seen in approximately one month with ABIs and a duplex of your bypass. All of this will be ordered and sent to you in the mail. If for some reason you don't receive this within a week or so please call our office as your followup is very important. Anticoagulation: Pradaxa Call your doctor if: Any fever, any drainage, redness or separation of your incision, increased pain or change in temperature of your leg Activity level: up as tolerated but watch for swelling of your leg. Manage this with leg elevation,toes higher than your nose and also can use acewrapping from your foot to below knee, tape in place, rewrap as necessary. Diet: resume your previous regular diet Driving: none right now with pain medication use Shower/Bath: ok to shower and wash all incisions under running water, pat dry. No soaking in a pool/bath/hottub for 2-4 weeks Wound Care: Visiting nurses will manage your wound vac For any problems or questions please call [phone] BREONNA Hou, juvenile counselor Nurse Clinician For issues on weeknights after 5pm and weekends please call [phone] and ask for the Vascular Fellow cardiac catheterization technician. documented in this encounter Medications at Time [...] TWICE A DAY 98 07/26/2016 Diabetic Supplies, [place]. [facility] Form faxed to [employer] for pump supplies. 100 each 12 03/23/2015 [...] daily. 022 documented as of this encounter Progress Notes * Toni Calabrese RN - 03/01/2019 11:47 AM EST Jennifer was discharged home with home health and wound vac. Vac dressing changed today by team. Attached to home wound vac and education given. AVS reviewed; all questions answered. PIV removed; no signs of bleeding. Discharge via and personal transportation. Patient knows when to seek help and when to follow up. D/c summary faxed to [facility] * Servando Nolan MD - 03/01/2019 11:03 AM EST Vascular Surgery Progress Note 58 y.o. female with PMH DM, former smoker, PAD who was found to have stenosis in her RLE proximal vein bypass. 02/04/19 she underwent right femoral endarterectomy, revision of proximal vein bypass, with bovine patch angioplasty,??Right profundaplasty with bovine patch angioplasty. She presented to vascular surgery clinic and was found to have a hematoma which was actively draining. Pt will require admission and OR for right groin washout and wound vac placement. ?? She is on pradaxa for bypass patency. Active Hospital Problems Diagnosis ??? Groin hematoma Resolved Hospital Problems No resolved problems to display. Active Non-Hospital Problems Diagnosis ??? PVD (peripheral vascular disease) ??? Lung nodule ??? Proliferative diabetic retinopathy of left eye ??? Obesity ??? Hypertension ??? Hyperlipidemia ??? Sleep apnea ??? Hypothyroidism ??? Depression ??? PDR (proliferative diabetic retinopathy) ??? Intermittent claudication ??? PAD (peripheral artery disease) ??? 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 Carotid stenosis ??? Hyperkeratosis palmaris et plantaris ??? Type 1 diabetes Scheduled Medications: ??? bolus IV fluid Intravenous Once ? ? insulin lispro 3-12 Units Subcutaneous 4 Times Daily AC & HS ??? docusate sodium 100 mg Oral BID ??? polyethylene glycol (MIRALAX)oral powder 17 g Oral Daily ??? melatonin 3 mg Oral Nightly ??? heparin (Porcine) 5,000 Units Subcutaneous Q8H SUNIL ??? aspirin 81 mg Oral Daily ??? carvedilol 1.56 mg Oral BID WC ??? citalopram 20 mg Oral BID ??? levothyroxine 125 mcg Oral QAM ??? pantoprazole 40 mg Oral Daily ??? simvastatin 40 mg Oral QPM Operations This Hospitalization: 02/20: Right groin washout and debridement ??02/22: Right groin debridement, wound vac placement Subjective: Pain well controlled, denies nausea, vomiting, chest pain or shortness of breath. Wound vac holding suction No acute events Objective: Temp: [36.4 ??C (97.5 ??F)-36.9 ??C (98.4 ??F)] Heart Rate: [58-62] Resp: [15-17] BP: (127-153)/(46-63) SpO2: [92 %-100 %] Heart Rate from SpO2: [58 bpm-70 bpm] BMI: Weight: 93.6 kg (206 lb 4.8 oz) (03/01/19 0611) BMI (Calculated): 32.62 BMI Classification: Obese Intake/Output Summary (Last 24 hours) at 03/01/2019 1103 Last data filed at 03/01/2019 1051 Gross per 24 hour Intake 1400 ml Output 2975 ml Net -1575 ml PHYSICAL EXAM: General: NAD, resting comfortably HEENT: PERRL, anicteric sclerae Neck: trachea midline Heart:: regular rate Pulmonary: non-labored breathing Abdomen: soft, non tender, non distended Neuro: no focal deficits Extremities: wound vac in place in right groin, no evidence of hematoma Able to wiggle toes and plantar/dorsiflex at ankle Sensation intact to light touch Palpable DP and PT pulses. PT faint, easily dopplerable. Skin warm and well perfused ?? Labs: Recent Labs 03/01/19 0404 02/28/19 0306 02/27/19 0427 WBC 9.0 7.6 6.6 HGB 10.1* 10.0* 10.3* HCT 33.1* 32.5* 32.4* PLATELET 276 281 269 Recent Labs 03/01/19 0404 02/28/19 0306 02/27/19 0427 NA 140 135 138 K 4.8 4.6 5.2* CL 104 100 102 CO2 24 23 25 BUN 38* 42* 34* CREATININE 1.83* 2.20* 1.94* CALCIUM 9.1 8.9 9.0 Microbiology: 02/20 Wound culture: E coli, staph lugdunensis. E coli pansensitive. New Studies: Assessment & Plan: Jennifer Branch is a 58 y.o. female 2 Days Post-Op right groin debridement with wound vac placement. Continues to recover appropriately. Afebrile, no leukocytosis, pain well controlled -Creatinine downtrending to 1.8 from 2.2; good response to fluid bolus -Additional 500cc bolus this morning -Vac change at bedside Anticoagulation: [facility] DVT Prophylaxis Antiplatelet: ASA Servando Nolan MD 03/01/2019 Pager: [phone] * Eva Gomes RN - 03/01/2019 10:39 AM EST The patient/instruments sales representative has been provided a list of Home Health Agencies/DME vendors which servetheir preferred geographic area. A letter describing our affiliations was reviewed with them and they were educated about their right to choose where referrals are placed. Patient requests referral to: [facility] Expected date of discharge: 03/01. Referral routed to the [employer] for matching with agency/vendor and to provide any required information. * Arturo Castro - 03/01/2019 3:54 AM EST Respiratory Therapy NIV Note NIV Settings: NIV Mode: CPAP PEEP/CPAP (cm H2O): 12 cm H20 NIV Measurements: Resp: 16 Mve: 7 Leak (L/min): 34 L/min Vte: 427 SpO2: 95 % Laboratory: Lab Results Component Value Date/Time PHART 7.35 02/04/2019 03:26 PM QOF5BZK 39 02/04/2019 03:26 PM PO2ART 82 (L) 02/04/2019 03:26 PM BNA5RIK 21.3 02/04/2019 03:26 PM BEART -4.6 (L) 02/04/2019 03:26 PM Last Chest X-ray: Results for orders placed during the hospital encounter of 02/04/19 XR Chest One View Narrative EXAMINATION: XR CHEST ONE VIEW CLINICAL HISTORY: pre-op surgical clearance TECHNIQUE: Standing PA chest COMPARISON: 07/09/2018 FINDINGS: Improved inflation of both lungs near complete clearing of previously seen RIGHT midlung zone opacities. Resolution of previously seen RIGHT pleural effusion. No other interval change. Impression Improved inflation but some residual opacity in RIGHT midlung zone. No acute cardiopulmonary process. Thank you for letting us participate in the care of this patient. For questions regarding this report, please contact the number below. Current Medications: , Skin Assessment: NIV Skin Assessment WDL: WDL Mepilex Applied: No Nares Assessment WDL: WDL Breath Sounds: Clear Assessment: Home CPAP for night resting comfortly. Plan: maintain cpap during night help with any needs Arturo Castro * Meeta Cooney RD - 02/28/2019 4:41 PM EST Nutrition Initial Note Jennifer Branch is a 58 y.o. female Reason for intervention: hospital day 9 + wound vac Nutrition Recommendations: Continue CHO 2 diet order. Pt reports good appetite and PO intake. Pt declines diet education. Active Orders Diet Carb Control diet 60/60/75 CHO counting level 2 Frequency: Effective Now Number of Occurrences: Until Specified Lab Results Component Value Date NA 135 02/28/2019 K 4.6 02/28/2019 CL 100 02/28/2019 CO2 23 02/28/2019 BUN 42 (H) 02/28/2019 CREATININE 2.20 (H) 02/28/2019 GLUCOSE 138 02/08/2019 CALCIUM 8.9 02/28/2019 PHOS 3.6 01/25/2018 AST 15 06/04/2018 ALT 8 06/04/2018 ALKPHOS 101 06/04/2018 BILITOT 0.4 06/04/2018 BILIDIR 0.1 11/26/2012 HA1C 8.4 (H) 01/25/2018 Skin Status: Shift Pressure Injury Prevention Occiput: No Injury Thoracic Spine: No Injury Sacral: No Injury Ischial - left: No Injury Ischial - right: No Injury Heel - left: No Injury Heel - right: No Injury Elbow - left: No Injury Elbow - right: No Injury Device Sites: O2 sat monitor, IV sites Other Sites: Wound vac R groin Relevant medications: colace, protonix, miralax Last Bowel Movement: 02/27/19 Assessment: Patient admitted with groin hematoma, s/p wound vac, relevant medical history includes diabetes x 40 years per patient. Nutrition intake and intake history/Interview: Pt reports good appetite and PO intake. Pt reports h/o diabetes x 40 years and is familiar with diabetic diet. Pt reports most recent A1C ~8%. Nursing reports 100% PO intake. Admit Weight: 95.71 kg Estimated body mass index is 32.62 kg/m?? as calculated from the following: Height as of this encounter: 170.2 cm (5' 7.01). Weight as of this encounter: 94.5 kg (208 lb 5.4 oz). Wt Readings from Last 10 Encounters: 02/28/19 94.5 kg (208 lb 5.4 oz) 02/20/19 95.7 kg (211 lb) 02/14/19 95.7 kg (211 lb) 02/06/19 97.9 kg (215 lb 13.3 oz) 12/17/18 96.2 kg (212 lb) 08/17/18 96.2 kg (212 lb) 07/30/18 98.9 kg (218 lb) 07/09/18 96.5 kg (212 lb 12.8 oz) 06/24/18 96.6 kg (212 lb 14.4 oz) 06/04/18 96.4 kg (212 lb 9.6 oz) Estimated needs: Calories: 1600 (25 kcal/kg IBW) Protein: 95 grams (1.5 g/kg IBW) Nutrition Focused Physical Exam (NFPE): Not performed Nutrition to continue to follow up while inpatient MARY CHUA Beeper #: [phone] * Nathaly Victor, BUS ATTENDANT - 02/28/2019 7:09 AM EST Vascular Surgery Progress Note 58 y.o. female with PMH DM, former smoker, PAD who was found to have stenosis in her RLE proximal vein bypass. 02/04/19 she underwent right femoral endarterectomy, revision of proximal vein bypass, with bovine patch angioplasty,??Right profundaplasty with bovine patch angioplasty. She presented to vascular surgery clinic and was found to have a hematoma which was actively draining. Pt will require admission and OR for right groin washout and wound vac placement. ?? She is on pradaxa for bypass patency. Active Hospital Problems Diagnosis ??? Groin hematoma Resolved Hospital Problems No resolved problems to display. Active Non-Hospital Problems Diagnosis ??? PVD (peripheral vascular disease) ??? Lung nodule ??? Proliferative diabetic retinopathy of left eye ??? Obesity ??? Hypertension ??? Hyperlipidemia ??? Sleep apnea ??? Hypothyroidism ??? Depression ??? PDR (proliferative diabetic retinopathy) ??? Intermittent claudication ??? PAD (peripheral artery disease) ??? 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 Carotid stenosis ??? Hyperkeratosis palmaris et plantaris ??? Type 1 diabetes Scheduled Medications: ??? bolus IV fluid Intravenous Once ??? docusate sodium 100 mg Oral BID ??? polyethylene glycol (MIRALAX)oral powder 17 g Oral Daily ??? melatonin 3 mg Oral Nightly ??? heparin (Porcine) 5,000 Units Subcutaneous Q8H SUNIL ??? aspirin 81 mg Oral Daily ??? carvedilol 1.56 mg Oral BID WC ??? citalopram 20 mg Oral BID ??? levothyroxine 125 mcg Oral QAM ??? pantoprazole 40 mg Oral Daily ??? simvastatin 40 mg Oral QPM ??? losartan 50 mg Oral Daily Operations This Hospitalization: 02/20: Right groin washout and debridement ??02/22: Right groin debridement, wound vac placement Subjective: Pain well controlled, denies nausea, vomiting, chest pain or shortness of breath. Wound vac holding suction No acute events Objective: Temp: [36.2 ??C (97.2 ??F)-36.9 ??C (98.4 ??F)] Heart Rate: [55-63] Resp: [9-20] BP: (106-147)/(52-64) SpO2: [90 %-100 %] Heart Rate from SpO2: [56 bpm-78 bpm] BMI: Weight: 95.5 kg (210 lb 8 oz) (02/26/19 1621) BMI (Calculated): 33.04 BMI Classification: Obese Intake/Output Summary (Last 24 hours) at 02/28/2019 0709 Last data filed at 02/28/2019 0300 Gross per 24 hour Intake 1410 ml Output 1677 ml Net -267 ml PHYSICAL EXAM: General: NAD, resting comfortably HEENT: PERRL, anicteric sclerae Neck: trachea midline Heart:: regular rate Pulmonary: non-labored breathing Abdomen: soft, non tender, non distended Neuro: no focal deficits Extremities: wound vac in place, no evidence of hematoma Able to wiggle toes and plantar/dorsiflex at ankle Sensation intact to light touch Palpable DP and PT pulses. PT faint, easily dopplerable. Skin warm and well perfused ?? Labs: Recent Labs 02/28/19 0306 02/27/197 02/26/19 0443 WBC 7.6 6.6 6.8 HGB 10.0* 10.3* 10.9* HCT 32.5* 32.4* 34.1* PLATELET 281 269 311 Recent Labs 02/28/19 0306 02/27/19 0427 02/26/19 0443 NA 135 138 139 K 4.6 5.2* 4.6 CL 100 102 103 CO2 23 25 22 BUN 42* 34* 22* CREATININE 2.20* 1.94* 1.44* CALCIUM 8.9 9.0 9.0 Microbiology: 02/20 Wound culture: E coli, staph lugdunensis. E coli pansensitive. New Studies: Assessment & Plan: Jennifer Branch is a 58 y.o. female 1 Day Post-Op right groin debridement with wound vac placement. Continues to recover appropriately. Afebrile, no leukocytosis, pain well controlled -Creatinine increased slightly today to 2.20 from 1.94, will consult Nephrology -02/20 cultures growing pansensitive e coli and staph -D/c mazariegos -vac change tomorrow at bedside Anticoagulation: [facility] DVT Prophylaxis Antiplatelet: SANJIV Victor APRN 02/28/2019 Pager: [phone] * NeerajrArturo - 02/28/2019 4:06 AM EST Respiratory Therapy NIV Note NIV Settings: HOME CPAP NIV Mode: CPAP PEEP/CPAP (cm H2O): 12 cm H20 NIV Measurements: Resp: 16 Mve: 7 Leak (L/min): 34 L/min Vte: 427 SpO2: 96 % Laboratory: Lab Results Component Value Date/Time PHART 7.35 02/04/2019 03:26 PM [id number] 39 02/04/2019 03:26 PM PO2ART 82 (L) 02/04/2019 03:26 PM [id number] 21.3 02/04/2019 03:26 PM BEART -4.6 (L) 02/04/2019 03:26 PM Last Chest X-ray: Results for orders placed during the hospital encounter of 02/04/19 XR Chest One View Narrative EXAMINATION: XR CHEST ONE VIEW CLINICAL HISTORY: pre-op surgical clearance TECHNIQUE: Standing PA chest COMPARISON: 07/09/2018 FINDINGS: Improved inflation of both lungs near complete clearing of previously seen RIGHT midlung zone opacities. Resolution of previously seen RIGHT pleural effusion. No other interval change. Impression Improved inflation but some residual opacity in RIGHT midlung zone. No acute cardiopulmonary process. Thank you for letting us participate in the care of this patient. For questions regarding this report, please contact the number below. Current Medications: , Skin Assessment: NIV Skin Assessment WDL: WDL Mepilex Applied: No Nares Assessment WDL: WDL Breath Sounds: Clear Assessment: Home CPAP @ 12 Plan: Help with home cpap when needed Arturo Gnozalez Mouser * Milton Grider MD - 02/27/2019 9:29 PM EST Vascular Surgery Post Op Check Jennifer Branch is a 58 y.o. female s/p R groin I&D and wound vac change Subjective: No nausea/vomiting, chest pain, SOB, pain well controlled, offers no complaints. Tolerating PO liquids and solids. Mazariegos in place. Objective: Temp: [36.2 ??C (97.2 ??F)-36.8 ??C (98.2 ??F)] Heart Rate: [60-63] Resp: [9-20] BP: (113-147)/(52-64) SpO2: [92 %-100 %] Heart Rate from SpO2: [61 bpm-78 bpm] I/O last 3 completed shifts: In: 830 [P.O.:630; I.V.:200] Out: 3512 [Urine:3460; Other:50; Blood:2] I/O this shift: In: 960 [P.O.:960] Out: 350 [Urine:350] UOP since OR: 350cc Physical Exam General: resting comfortably, no acute distress HEENT: normocephalic, atraumatic CVS: regular rate Pulm: non-labored breathing on RA Abd: soft, non tender, non distended Neuro: no focal deficits, moving all extremities RLE Groin dressing c/d/i, no evidence of hematoma. Wound vac maintaining suction to -125mmhg. Able to wiggle toes and plantar/dorsiflex at ankle Sensation intact to light touch Palpable DP and PT pulses. PT more faint. Skin warm and well perfused Assessment/Plan: Jennifer Branch is a 58 y.o. female s/p R groin I&D and vac change currently in stable condition and recovering well. - pain well controlled - hemodynamically stable - UOP adequate Milton Grider MD * Raj Saldana RN - 02/27/2019 7:05 PM EST Patient returned to unit via bed from PACU alert and oriented x 3. Patient states that pain is tolerable. See MAR for pain medications. Educated patient on pain management. Patient verbalizes understanding of pain control. Patient denies CP/SOB/difficulty breathing. Wound vac to R groin in place and running at 125 mmHg. +CMS. Blood glucose monitored via own insulin pump and patient dosed herself with insulin accordingly (see flow sheet for details). VSS. Tolerating PO intake well. Oriented patient to room, call leggett is within reach. Will continue to monitor. Raj Saldana RN * Haley Duenas RN - 02/27/2019 6:11 PM EST 1800- On arrival to PACU, pt is awake, alert and oriented x 4. Breathing is clear, equal and non labored. Follows commands. Denies pain. Moves all extremities. Surgical site to R groin with wound vac to site at 125mmhg continuously. No output. Distal CSM WDL w/ easily palpable DP pulses. 1811- Marked ready for visitation per pt request. 1829- Report called to TAMEKA Bowens receiving pt in 305a. Family at for visitation. Dinner tray called in to dietary per pt request. * Oliva Jaimes RN - 02/27/2019 5:50 PM EST One black foam inserted and replaced with one black foam. * Servando Nolan MD - 02/27/2019 1:00 PM EST Vascular Surgery Progress Note 58 y.o. female with PMH DM, former smoker, PAD who was found to have stenosis in her RLE proximal vein bypass. 02/04/19 she underwent right femoral endarterectomy, revision of proximal vein bypass, with bovine patch angioplasty,??Right profundaplasty with bovine patch angioplasty. She presented to vascular surgery clinic and was found to have a hematoma which was actively draining. Pt will require admission and OR for right groin washout and wound vac placement. ?? She is on pradaxa for bypass patency. Active Hospital Problems Diagnosis ??? Groin hematoma Resolved Hospital Problems No resolved problems to display. Active Non-Hospital Problems Diagnosis ??? PVD (peripheral vascular disease) ??? Lung nodule ??? Proliferative diabetic retinopathy of left eye ??? Obesity ??? Hypertension ??? Hyperlipidemia ??? Sleep apnea ??? Hypothyroidism ??? Depression ??? PDR (proliferative diabetic retinopathy) ??? Intermittent claudication ??? PAD (peripheral artery disease) ??? 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 Carotid stenosis ??? Hyperkeratosis palmaris et plantaris ??? Type 1 diabetes Scheduled Medications: ??? docusate sodium 100 mg Oral BID ??? polyethylene glycol (MIRALAX)oral powder 17 g Oral Daily ??? melatonin 3 mg Oral Nightly ??? heparin (Porcine) 5,000 Units Subcutaneous Q8H SUNIL ??? aspirin 81 mg Oral Daily ??? carvedilol 1.56 mg Oral BID WC ??? citalopram 20 mg Oral BID ??? levothyroxine 125 mcg Oral QAM ??? pantoprazole 40 mg Oral Daily ??? simvastatin 40 mg Oral QPM ??? losartan 50 mg Oral Daily Operations This Hospitalization: 02/20: Right groin washout and debridement ??02/22: Right groin debridement, wound vac placement Subjective: Pain well controlled, denies nausea, vomiting, chest pain or shortness of breath. Wound vac holding suction No acute events Objective: Temp: [36.3 ??C (97.3 ??F)-36.9 ??C (98.4 ??F)] Heart Rate: [55] Resp: [15-16] BP: (106-132)/(53-61) SpO2: [90 %-97 %] Heart Rate from SpO2: [56 bpm-65 bpm] BMI: Weight: 95.5 kg (210 lb 8 oz) (02/26/19 1621) BMI (Calculated): 33.04 BMI Classification: Obese Intake/Output Summary (Last 24 hours) at 02/27/2019 1300 Last data filed at 02/27/2019 0800 Gross per 24 hour Intake 240 ml Output 2550 ml Net -2310 ml PHYSICAL EXAM: General: NAD, resting comfortably HEENT: PERRL, anicteric sclerae Neck: trachea midline Heart:: regular rate Pulmonary: non-labored breathing Abdomen: soft, non tender, non distended Neuro: no focal deficits Extremities: wound vac in place, no evidence of hematoma Able to wiggle toes and plantar/dorsiflex at ankle Sensation intact to light touch Palpable DP and PT pulses. PT faint, easily dopplerable. Skin warm and well perfused ?? Labs: Recent Labs 02/27/1942602/26/19 0443 02/25/19 0334 WBC 6.6 6.8 6.5 HGB 10.3* 10.9* 10.4* HCT 32.4* 34.1* 33.3* PLATELET 269 311 322 Recent Labs 02/27/197 02/26/19 0443 02/25/19 0334 NA 138 139 140 K 5.2* 4.6 4.7 CL 102 103 105 CO2 25 22 24 BUN 34* 22* 25* CREATININE 1.94* 1.44* 1.63* CALCIUM 9.0 9.0 9.1 Microbiology: 02/20 Wound culture: E coli, staph lugdunensis. E coli pansensitive. New Studies: Assessment & Plan: Jennifer Branch is a 58 y.o. female 2 Days Post-Op right groin debridement with wound vac placement. Continues to recover appropriately. Afebrile, no leukocytosis, pain well controlled -Creatinine increased slightly today to 1.94 from 1.44, will continue to monitor daily -02/20 cultures growing pansensitive e coli and staph -OR for wound vac change today -D/c mazariegos after procedure Anticoagulation: [facility] DVT Prophylaxis Antiplatelet: SANJIV Nolan MD 02/27/2019 Pager: [phone] * Eva Gomes RN - 02/26/2019 10:19 AM EST Office of Care Management/Discharge Planning Note Care reviewed with primary medical team (Service:Vascular) and discussed in interdisciplinary rounds. Medical record reviewed. Patient will remain inhouse until Monday when she will have a scheduled wound vac change. If she tolerates change, she could dc then as well. She was cleared by PT/OT for home. VAC Therapy Insurance auth faxed back to [facility]. Ready for pick up attendant from distribution on Monday. [facility] ordered for wound vac changes. Confirmed availability with Angelina from [facility]. . Care Management will continue to monitor progress, follow for continuity of care, and assist with discharge planning. Platform Consultant: Eva Gomes Pager [phone] * Nathaly Victor APRN - 02/26/2019 7:52 AM EST Vascular Surgery Progress Note 58 y.o. female with PMH DM, former smoker, PAD who was found to have stenosis in her RLE proximal vein bypass. 02/04/19 she underwent right femoral endarterectomy, revision of proximal vein bypass, with bovine patch angioplasty,??Right profundaplasty with bovine patch angioplasty. She presented to vascular surgery clinic and was found to have a hematoma which was actively draining. Pt will require admission and OR for right groin washout and wound vac placement. ?? She is on pradaxa for bypass patency. Active Hospital Problems Diagnosis ??? Groin hematoma Resolved Hospital Problems No resolved problems to display. Active Non-Hospital Problems Diagnosis ??? PVD (peripheral vascular disease) ??? Lung nodule ??? Proliferative diabetic retinopathy of left eye ??? Obesity ??? Hypertension ??? Hyperlipidemia ??? Sleep apnea ??? Hypothyroidism ??? Depression ??? PDR (proliferative diabetic retinopathy) ??? Intermittent claudication ??? PAD (peripheral artery disease) ??? 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 Carotid stenosis ??? Hyperkeratosis palmaris et plantaris ??? Type 1 diabetes Scheduled Medications: ??? melatonin 3 mg Oral Nightly ??? heparin (Porcine) 5,000 Units Subcutaneous Q8H SUNIL ??? aspirin 81 mg Oral Daily ??? carvedilol 1.56 mg Oral BID WC ??? citalopram 20 mg Oral BID ??? levothyroxine 125 mcg Oral QAM ??? pantoprazole 40 mg Oral Daily ??? simvastatin 40 mg Oral QPM ??? losartan 50 mg Oral Daily Operations This Hospitalization: 02/20: Right groin washout and debridement ??02/22: Right groin debridement, wound vac placement Subjective: Pain well controlled, denies nausea, vomiting, chest pain or shortness of breath. Wound vac holding suction No acute events Objective: Temp: [36.1 ??C (97 ??F)-36.9 ??C (98.4 ??F)] Heart Rate: [60-63] Resp: [12-18] BP: (113-175)/(54-80) SpO2: [91 %-100 %] Heart Rate from SpO2: [55 bpm-63 bpm] BMI: Weight: 98.9 kg (218 lb 0.6 oz) (02/25/19 0600) BMI (Calculated): 33.04 BMI Classification: Obese Intake/Output Summary (Last 24 hours) at 02/26/2019 0752 Last data filed at 02/26/2019 0430 Gross per 24 hour Intake 510 ml Output 2600 ml Net -2090 ml PHYSICAL EXAM: General: NAD, resting comfortably HEENT: PERRL, anicteric sclerae Neck: trachea midline Heart:: regular rate Pulmonary: non-labored breathing Abdomen: soft, non tender, non distended Neuro: no focal deficits Extremities: wound vac in place, no evidence of hematoma Able to wiggle toes and plantar/dorsiflex at ankle Sensation intact to light touch Palpable DP and PT pulses. PT faint, easily dopplerable. Skin warm and well perfused ?? Labs: Recent Labs 02/26/19 0443 02/25/19 0334 02/24/19 0352 WBC 6.8 6.5 6.5 HGB 10.9* 10.4* 10.6* HCT 34.1* 33.3* 33.9* PLATELET 311 322 316 Recent Labs 02/26/19 0443 02/25/19 0334 02/24/19 0352 NA 139 140 141 K 4.6 4.7 4.7 CL 103 105 107 CO2 22 24 23 BUN 22* 25* 21* CREATININE 1.44* 1.63* 1.69* CALCIUM 9.0 9.1 8.9 Microbiology: 02/20 Wound culture: E coli, staph lugdunensis. E coli pansensitive. New Studies: Assessment & Plan: Jennifer Branch is a 58 y.o. female 1 Day Post-Op right groin debridement with wound vac placement. Continues to recover appropriately. Afebrile, no leukocytosis, pain well controlled -creat 1.63 today from 1.69 yesterday likely CKD stage III as Creat on admission was 1.41 and Gfr was 40 but unable to determine. -02/20 cultures growing pansensitive e coli and staph -For wound vac change tomorrow -NPO after MN tonight. Anticoagulation: [facility] DVT Prophylaxis Antiplatelet: SANJIV Victor APRN 02/26/2019 Pager: [phone] * Brielle Solano RN - 02/25/2019 1:28 PM EST 1303 admitted from OR s/p right groin debridement. Monitors attached and alarms set. Report received from OR team. VSS, patient awake and alert, following commands. Denies pain at this time, wcm * Eva Gomes RN - 02/25/2019 11:18 AM EST Office of Care Management/Discharge Planning Note Care reviewed with primary medical team (Service: vascular) and discussed in interdisciplinary rounds. Medical record reviewed. Patient found to have stenosis in her RLE proximal vein bypass.??02/04/19 she underwent right femoral endarterectomy, revision of proximal vein bypass, with bovine patch angioplasty,??Right profundaplasty with bovine patch angioplasty. She presented to vascular surgery clinic and was found to have a hematoma which was actively draining. Pt will require admission and OR for right groin washout and wound vac placement.?? Vascular at bedside and preparing consents for surgery today. Patient's goal is to go home. Will route wound vac and vna incase patent goes home with vac. 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 A letter describing our affiliations was reviewed with them and they were educated about their right to choose where referrals are placed. Patient requests referral to : [facility] for [facility] vac [facility] Expected date of discharge: 1-2 days. Referral routed to the [employer] for matching with agency/vendor and to provide any required information. [facility] Management will continue to monitor progress, follow for continuity of care, and assist with discharge planning. Platform Consultant: Eva Gomes Pager [phone] * Nathaly Victor APRN - 02/25/2019 11:04 AM EST Vascular Surgery Progress Note 58 y.o. female with PMH DM, former smoker, PAD who was found to have stenosis in her RLE proximal vein bypass. 02/04/19 she underwent right femoral endarterectomy, revision of proximal vein bypass, with bovine patch angioplasty,??Right profundaplasty with bovine patch angioplasty. She presented to vascular surgery clinic and was found to have a hematoma which was actively draining. Pt will require admission and OR for right groin washout and wound vac placement. ?? She is on pradaxa for bypass patency. Active Hospital Problems Diagnosis ??? Groin hematoma Resolved Hospital Problems No resolved problems to display. Active Non-Hospital Problems Diagnosis ??? PVD (peripheral vascular disease) ??? Lung nodule ??? Proliferative diabetic retinopathy of left eye ??? Obesity ??? Hypertension ??? Hyperlipidemia ??? Sleep apnea ??? Hypothyroidism ??? Depression ??? PDR (proliferative diabetic retinopathy) ??? Intermittent claudication ??? PAD (peripheral artery disease) ??? 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 Carotid stenosis ??? Hyperkeratosis palmaris et plantaris ??? Type 1 diabetes Scheduled Medications: ??? melatonin 3 mg Oral Nightly ??? heparin (Porcine) 5,000 Units Subcutaneous Q8H SUNIL ??? aspirin 81 mg Oral Daily ??? carvedilol 1.56 mg Oral BID WC ??? citalopram 20 mg Oral BID ??? levothyroxine 125 mcg Oral QAM ??? pantoprazole 40 mg Oral Daily ??? simvastatin 40 mg Oral QPM ??? losartan 50 mg Oral Daily Operations This Hospitalization: 02/20: Right groin washout and debridement ??02/22: Right groin debridement, wound vac placement Subjective: Pain well controlled, denies nausea, vomiting, chest pain or shortness of breath. Wound vac holding suction NPO for OR today No acute events Objective: Temp: [36.4 ??C (97.5 ??F)-36.8 ??C (98.2 ??F)] Heart Rate: -- Resp: [12-16] BP: (139-164)/(52-64) SpO2: [91 %-97 %] Heart Rate from SpO2: [56 bpm-63 bpm] BMI: Weight: 98.9 kg (218 lb 0.6 oz) (02/25/19 0600) BMI (Calculated): 33.04 BMI Classification: Obese Intake/Output Summary (Last 24 hours) at 02/25/2019 1104 Last data filed at 02/25/2019 0900 Gross per 24 hour Intake 1210 ml Output 1663.28 ml Net -453.28 ml PHYSICAL EXAM: General: NAD, resting comfortably HEENT: PERRL, anicteric sclerae Neck: trachea midline Heart:: regular rate Pulmonary: non-labored breathing Abdomen: soft, non tender, non distended Neuro: no focal deficits Extremities: wound vac in place, no evidence of hematoma Able to wiggle toes and plantar/dorsiflex at ankle Sensation intact to light touch Palpable DP and PT pulses. PT faint, easily dopplerable. Skin warm and well perfused ?? Labs: Recent Labs 02/25/19 0334 02/24/19 0352 02/23/19 0322 WBC 6.5 6.5 6.0 HGB 10.4* 10.6* 10.8* HCT 33.3* 33.9* 35.4* PLATELET 322 316 353 Recent Labs 02/25/19 0334 02/24/19 0352 02/23/19 0322 NA 140 141 141 K 4.7 4.7 4.7 CL 105 107 106 CO2 24 23 23 BUN 25* 21* 18 CREATININE 1.63* 1.69* 1.36* CALCIUM 9.1 8.9 9.1 Microbiology: 02/20 Wound culture: E coli, staph lugdunensis. E coli pansensitive. New Studies: Assessment & Plan: Jennifer Branch is a 58 y.o. female 3 Days Post-Op right groin debridement with wound vac placement. Continues to recover appropriately. Afebrile, no leukocytosis, pain well controlled -creat 1.63 today from 1.69 yesterday likely CKD stage III as Creat on admission was 1.41 and Gfr was 40 but unable to determine. -02/20 cultures growing pansensitive e coli and staph -wound vac to be changed Monday in OR -NPO diet (Give Meds) for OR today. Anticoagulation: [facility] DVT Prophylaxis Antiplatelet: SANJIV Victor APRN 02/25/2019 Pager: [phone] * Nathaly Victor APRN - 02/25/2019 7:09 AM EST Vascular Surgery Progress Note 58 y.o. female with PMH DM, former smoker, PAD who was found to have stenosis in her RLE proximal vein bypass. 02/04/19 she underwent right femoral endarterectomy, revision of proximal vein bypass, with bovine patch angioplasty,??Right profundaplasty with bovine patch angioplasty. She presented to vascular surgery clinic and was found to have a hematoma which was actively draining. Pt will require admission and OR for right groin washout and wound vac placement. ?? She is on pradaxa for bypass patency. Active Hospital Problems Diagnosis ??? Groin hematoma Resolved Hospital Problems No resolved problems to display. Active Non-Hospital Problems Diagnosis ??? PVD (peripheral vascular disease) ??? Lung nodule ??? Proliferative diabetic retinopathy of left eye ??? Obesity ??? Hypertension ??? Hyperlipidemia ??? Sleep apnea ??? Hypothyroidism ??? Depression ??? PDR (proliferative diabetic retinopathy) ??? Intermittent claudication ??? PAD (peripheral artery disease) ??? 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 Carotid stenosis ??? Hyperkeratosis palmaris et plantaris ??? Type 1 diabetes Scheduled Medications: ??? melatonin 3 mg Oral Nightly ??? heparin (Porcine) 5,000 Units Subcutaneous Q8H SUNIL ??? aspirin 81 mg Oral Daily ??? carvedilol 1.56 mg Oral BID WC ??? citalopram 20 mg Oral BID ??? levothyroxine 125 mcg Oral QAM ??? pantoprazole 40 mg Oral Daily ??? simvastatin 40 mg Oral QPM ??? losartan 50 mg Oral Daily Operations This Hospitalization: 02/20: Right groin washout and debridement ??02/22: Right groin debridement, wound vac placement Subjective: Pain well controlled, denies nausea, vomiting, chest pain or shortness of breath. Wound vac holding suction NPO for OR today No acute events Objective: Temp: [36.4 ??C (97.5 ??F)-36.8 ??C (98.2 ??F)] Heart Rate: [55] Resp: [12-16] BP: (139-164)/(52-67) SpO2: [93 %-97 %] Heart Rate from SpO2: [53 bpm-63 bpm] BMI: Weight: 98.9 kg (218 lb 0.6 oz) (02/25/19 0600) BMI (Calculated): 33.04 BMI Classification: Obese Intake/Output Summary (Last 24 hours) at 02/25/2019 0709 Last data filed at 02/25/2019 0640 Gross per 24 hour Intake 1570 ml Output 1688.28 ml Net -118.28 ml PHYSICAL EXAM: General: NAD, resting comfortably HEENT: PERRL, anicteric sclerae Neck: trachea midline Heart:: regular rate Pulmonary: non-labored breathing Abdomen: soft, non tender, non distended Neuro: no focal deficits Extremities: wound vac in place, no evidence of hematoma Able to wiggle toes and plantar/dorsiflex at ankle Sensation intact to light touch Palpable DP and PT pulses. PT faint, easily dopplerable. Skin warm and well perfused ?? Labs: Recent Labs 02/25/19 0334 02/24/19 0352 02/23/19 0322 WBC 6.5 6.5 6.0 HGB 10.4* 10.6* 10.8* HCT 33.3* 33.9* 35.4* PLATELET 322 316 353 Recent Labs 02/25/19 0334 02/24/19 0352 02/23/19 0322 NA 140 141 141 K 4.7 4.7 4.7 CL 105 107 106 CO2 24 23 23 BUN 25* 21* 18 CREATININE 1.63* 1.69* 1.36* CALCIUM 9.1 8.9 9.1 Microbiology: 02/20 Wound culture: E coli, staph lugdunensis. E coli pansensitive. New Studies: Assessment & Plan: Jennifer Branch is a 58 y.o. female 3 Days Post-Op right groin debridement with wound vac placement. Continues to recover appropriately. Afebrile, no leukocytosis, pain well controlled -creat 1.63 today from 1.69 yesterday -02/20 cultures growing pansensitive e coli and staph -wound vac to be changed Monday in OR -NPO diet (Give Meds) for OR today. Anticoagulation: [facility] DVT Prophylaxis Antiplatelet: SANJIV Victor APRN 02/25/2019 Pager: [phone] * Tamiko De La O RN - 02/24/2019 3:11 PM EST This RN took over for the previous RN. Assessment of patient remains unchanged, patient oriented toroom and call leggett, is currently resting. Will continue to monitor. * Servando Nolan MD - 02/24/2019 5:41 AM EST Vascular Surgery Progress Note 58 y.o. female with PMH DM, former smoker, PAD who was found to have stenosis in her RLE proximal vein bypass. 02/04/19 she underwent right femoral endarterectomy, revision of proximal vein bypass, with bovine patch angioplasty,??Right profundaplasty with bovine patch angioplasty. She presented to vascular surgery clinic and was found to have a hematoma which was actively draining. Pt will require admission and OR for right groin washout and wound vac placement. ?? She is on pradaxa for bypass patency. Active Hospital Problems Diagnosis ??? Groin hematoma Resolved Hospital Problems No resolved problems to display. Active Non-Hospital Problems Diagnosis ??? PVD (peripheral vascular disease) ??? Lung nodule ??? Proliferative diabetic retinopathy of left eye ??? Obesity ??? Hypertension ??? Hyperlipidemia ??? Sleep apnea ??? Hypothyroidism ??? Depression ??? PDR (proliferative diabetic retinopathy) ??? Intermittent claudication ??? PAD (peripheral artery disease) ??? 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 Carotid stenosis ??? Hyperkeratosis palmaris et plantaris ??? Type 1 diabetes Scheduled Medications: ??? heparin (Porcine) 5,000 Units Subcutaneous Q8H SUNIL ??? aspirin 81 mg Oral Daily ??? carvedilol 1.56 mg Oral BID WC ??? citalopram 20 mg Oral BID ??? levothyroxine 125 mcg Oral QAM ??? pantoprazole 40 mg Oral Daily ??? simvastatin 40 mg Oral QPM ??? losartan 50 mg Oral Daily Operations This Hospitalization: 02/20: Right groin washout and debridement ??02/22: Right groin debridement, wound vac placement Subjective: Pain well controlled, denies nausea, vomiting, chest pain or shortness of breath. Wound vac holding suction No acute events Objective: Temp: [36.5 ??C (97.7 ??F)-37.1 ??C (98.8 ??F)] Heart Rate: [60] Resp: [12-16] BP: (129-157)/(52-66) SpO2: [92 %-96 %] Heart Rate from SpO2: [57 bpm-64 bpm] BMI: Weight: 95.7 kg (211 lb) (02/20/19 1432) BMI (Calculated): 33.04 BMI Classification: Obese Intake/Output Summary (Last 24 hours) at 02/23/2019 1913 Last data filed at 02/23/2019 1827 Gross per 24 hour Intake 1810 ml Output 1350 ml Net 460 ml PHYSICAL EXAM: General: NAD, resting comfortably HEENT: PERRL, anicteric sclerae Neck: trachea midline Heart:: regular rate Pulmonary: non-labored breathing Abdomen: soft, non tender, non distended Neuro: no focal deficits Extremities: wound vac in place, no evidence of hematoma Able to wiggle toes and plantar/dorsiflex at ankle Sensation intact to light touch Palpable DP and PT pulses. PT faint, easily dopplerable. Skin warm and well perfused ?? Labs: Recent Labs 02/23/1932102/22/1934002/21/19326 WBC 6.0 6.0 7.1 HGB 10.8* 10.2* 9.9* HCT 35.4* 33.5* 31.9* PLATELET 353 351 331 Recent Labs 02/23/1932102/22/1934002/21/19326 NA 141 141 141 K 4.7 4.9 4.8 CL 106 106 107 CO2 23 23 23 BUN 18 21* 27* CREATININE 1.36* 1.48* 1.60* CALCIUM 9.1 8.7 8.7 Microbiology: 02/20 Wound culture: E coli, staph lugdunensis. E coli pansensitive. New Studies: Assessment & Plan: Jennifer Branch is a 58 y.o. female 1 Day Post-Op right groin debridement with wound vac placement. Continues to recover appropriately. Afebrile, no leukocytosis, pain well controlled -02/20 cultures growing pansensitive e coli and staph -wound vac to be changed Monday in OR - NPO at midnight -Carb Control diet CHO counting level 2 Anticoagulation: [facility] DVT Prophylaxis Antiplatelet: SANJIV Nolan MD 02/23/2019 Pager: [phone] * Servando Nolan MD - 02/23/2019 11:58 AM EST Vascular Surgery Progress Note 58 y.o. female with PMH DM, former smoker, PAD who was found to have stenosis in her RLE proximal vein bypass. 02/04/19 she underwent right femoral endarterectomy, revision of proximal vein bypass, with bovine patch angioplasty,??Right profundaplasty with bovine patch angioplasty. She presented to vascular surgery clinic and was found to have a hematoma which was actively draining. Pt will require admission and OR for right groin washout and wound vac placement. ?? She is on pradaxa for bypass patency. Active Hospital Problems Diagnosis ??? Groin hematoma Resolved Hospital Problems No resolved problems to display. Active Non-Hospital Problems Diagnosis ??? PVD (peripheral vascular disease) ??? Lung nodule ??? Proliferative diabetic retinopathy of left eye ??? Obesity ??? Hypertension ??? Hyperlipidemia ??? Sleep apnea ??? Hypothyroidism ??? Depression ??? PDR (proliferative diabetic retinopathy) ??? Intermittent claudication ??? PAD (peripheral artery disease) ??? 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 Carotid stenosis ??? Hyperkeratosis palmaris et plantaris ??? Type 1 diabetes Scheduled Medications: ??? heparin (Porcine) 5,000 Units Subcutaneous Q8H SUNIL ??? aspirin 81 mg Oral Daily ??? carvedilol 1.56 mg Oral BID WC ??? citalopram 20 mg Oral BID ??? levothyroxine 125 mcg Oral QAM ??? pantoprazole 40 mg Oral Daily ??? simvastatin 40 mg Oral QPM ??? losartan 50 mg Oral Daily Operations This Hospitalization: 02/20: Right groin washout and debridement ??02/22: Right groin debridement, wound vac placement Subjective: Pain well controlled, denies nausea, vomiting, chest pain or shortness of breath. Wound vac placed yesterday Objective: Temp: [36.5 ??C (97.7 ??F)-37.2 ??C (99 ??F)] Heart Rate: [60-71] Resp: [12-18] BP: (132-177)/(52-67) SpO2: [90 %-100 %] Heart Rate from SpO2: [57 bpm-70 bpm] BMI: Weight: 95.7 kg (211 lb) (02/20/19 1432) BMI (Calculated): 33.04 BMI Classification: Obese Intake/Output Summary (Last 24 hours) at 02/23/2019 1158 Last data filed at 02/23/2019 1117 Gross per 24 hour Intake 1070 ml Output 1800 ml Net -730 ml PHYSICAL EXAM: General: NAD, resting comfortably HEENT: PERRL, anicteric sclerae Neck: trachea midline Heart:: regular rate Pulmonary: non-labored breathing Abdomen: soft, non tender, non distended Neuro: no focal deficits Extremities: wound vac in place, no evidence of hematoma Able to wiggle toes and plantar/dorsiflex at ankle Sensation intact to light touch Palpable DP and PT pulses. PT faint, easily dopplerable. Skin warm and well perfused ?? Labs: Recent Labs 02/23/1932102/22/1934002/21/1932602/20/19 1745 WBC 6.0 6.0 7.1 7.0 HGB 10.8* 10.2* 9.9* 10.4* HCT 35.4* 33.5* 31.9* 33.0* PLATELET 353 351 331 349 Recent Labs 02/23/1932102/22/1934002/21/1932602/20/19 1745 NA 141 141 141 142 K 4.7 4.9 4.8 5.0 CL 106 106 107 106 CO2 23 23 23 23 BUN 18 21* 27* 29* CREATININE 1.36* 1.48* 1.60* 1.58* CALCIUM 9.1 8.7 8.7 9.1 Microbiology: Gram Stain Abnormal Few Neutrophils seen Rare Gram Positive Cocci seen New Studies: Assessment & Plan: Jennifer Branch is a 58 y.o. female 1 Day Post-Op right groin debridement with wound vac placement. Did well overnight, afebrile, pain well controlled -Discontinue Vancomycin Zosyn; source control achieved -follow up cultures; growing e coli and staph -wound vac to be changed Monday in OR -Carb Control diet 60/ CHO counting level 2 Anticoagulation: [facility] DVT Prophylaxis Antiplatelet: SANJIV Nolan MD 02/23/2019 Pager: [phone] * Vinay Celeste RN - 02/22/2019 5:42 PM EST Patient arrived to unit from PACU, Patient is alert and oriented x4, VS stable, No complaints of chest pain or trouble breathing, no nausea or vomiting. Pain is well controlled. Mazariegos is in place anddraining clear yellow urine. Dressing to right extremity clean dry and intact. Wound vac at 125. Order asking for 120. Team paged. O2 Sat 91. Placed on 2L NC. Pulses present in BLE. Hypoactive Bowels. See flow sheet for further assessments. Patient oriented to room and call leggett. Call leggett within reach. Family at bedside. Will continue to monitor. Vinay Celeste RN * Zahida Posada RN - 02/22/2019 5:26 PM EST 1635: Pt arrived to PACU09 from OR, vital signs stable, alarms audible and set appropriately, woundvac in place to R groin at 125 mmHg continuous, R DP pulse palpable 1+, blood glucose 106 via pt's own glucometer, pt in no apparent distress, will continue to monitor 1715: Pt resting in bed, appears comfortable, converses appropriately, tolerating ice chips and sips of water. Report given to TAMEKA Espinoza. * Nathaly Victor APRN - 02/22/2019 7:07 AM EST Vascular Surgery Progress Note 58 y.o. female with PMH DM, former smoker, PAD who was found to have stenosis in her RLE proximal vein bypass. 02/04/19 she underwent right femoral endarterectomy, revision of proximal vein bypass, with bovine patch angioplasty,??Right profundaplasty with bovine patch angioplasty. She presented to vascular surgery clinic and was found to have a hematoma which was actively draining. Pt will require admission and OR for right groin washout and wound vac placement. ?? She is on pradaxa for bypass patency. Active Hospital Problems Diagnosis ??? Groin hematoma Resolved Hospital Problems No resolved problems to display. Active Non-Hospital Problems Diagnosis ??? PVD (peripheral vascular disease) ??? Lung nodule ??? Proliferative diabetic retinopathy of left eye ??? Obesity ??? Hypertension ??? Hyperlipidemia ??? Sleep apnea ??? Hypothyroidism ??? Depression ??? PDR (proliferative diabetic retinopathy) ??? Intermittent claudication ??? PAD (peripheral artery disease) ??? 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 Carotid stenosis ??? Hyperkeratosis palmaris et plantaris ??? Type 1 diabetes Scheduled Medications: ??? heparin (Porcine) 5,000 Units Subcutaneous Q8H SUNIL ??? vancomycin 1,250 mg Intravenous Q24H ??? aspirin 81 mg Oral Daily ??? carvedilol 1.56 mg Oral BID WC ??? citalopram 20 mg Oral BID ??? levothyroxine 125 mcg Oral QAM ??? pantoprazole 40 mg Oral Daily ??? simvastatin 40 mg Oral QPM ??? losartan 50 mg Oral Daily ??? piperacillin-tazobactam 3.375 g Intravenous Q8H Operations This Hospitalization: Right groin washout and debridement ?? Subjective: Pain well controlled, denies nausea, vomiting, chest pain or shortness of breath. Mazariegos placed yesterday for urinary retention Objective: Temp: [36.5 ??C (97.7 ??F)-36.9 ??C (98.4 ??F)] Heart Rate: [65-68] Resp: [16-17] BP: (131-167)/(51-67) SpO2: [91 %-95 %] Heart Rate from SpO2: [59 bpm-68 bpm] BMI: Weight: 95.7 kg (211 lb) (02/20/19 1432) BMI (Calculated): 33.04 BMI Classification: Obese Intake/Output Summary (Last 24 hours) at 02/22/2019 0707 Last data filed at 02/22/2019 0400 Gross per 24 hour Intake 720 ml Output 2025 ml Net -1305 ml PHYSICAL EXAM: General: NAD, resting comfortably HEENT: PERRL, anicteric sclerae Neck: trachea midline Heart:: regular rate Pulmonary: non-labored breathing Abdomen: soft, non tender, non distended Neuro: no focal deficits Extremities: Groin dressing c/d/i, no evidence of hematoma Able to wiggle toes and plantar/dorsiflex at ankle Sensation intact to light touch Palpable DP and PT pulses. PT faint, easily dopplerable. Skin warm and well perfused ?? Labs: Recent Labs 02/22/19 0341 02/21/19 0327 02/20/19 1745 WBC 6.0 7.1 7.0 HGB 10.2* 9.9* 10.4* HCT 33.5* 31.9* 33.0* PLATELET 351 331 349 Recent Labs 02/22/19 0341 02/21/19 0327 02/20/19 1745 NA 141 141 142 K 4.9 4.8 5.0 CL 106 107 106 CO2 23 23 23 BUN 21* 27* 29* CREATININE 1.48* 1.60* 1.58* CALCIUM 8.7 8.7 9.1 Microbiology: Gram Stain Abnormal Few Neutrophils seen Rare Gram Positive Cocci seen New Studies: Assessment & Plan: Jennifer Branch is a 58 y.o. female 2 Days Post-Op right groin wash out. Did well overnight, afebrile, pain well controlled -continue Vancomycin Zosyn -follow up cultures -to OR today -NPO Anticoagulation: [facility] DVT Prophylaxis Antiplatelet: SANJIV Victor APRN 02/22/2019 Pager: [phone] * Jessica Maria RCP - 02/22/2019 3:41 AM EST Pt compliant with home pap device overnight. No issues or complaints. Continue therapy as ordered. * Nathaly Victor APRN - 02/21/2019 8:01 AM EST Vascular Surgery Progress Note 58 y.o. female with PMH DM, former smoker, PAD who was found to have stenosis in her RLE proximal vein bypass. 02/04/19 she underwent right femoral endarterectomy, revision of proximal vein bypass, with bovine patch angioplasty,??Right profundaplasty with bovine patch angioplasty. She presented to vascular surgery clinic and was found to have a hematoma which was actively draining. Pt will require admission and OR for right groin washout and wound vac placement. ?? She is on pradaxa for bypass patency. Active Hospital Problems Diagnosis ??? Groin hematoma Resolved Hospital Problems No resolved problems to display. Active Non-Hospital Problems Diagnosis ??? PVD (peripheral vascular disease) ??? Lung nodule ??? Proliferative diabetic retinopathy of left eye ??? Obesity ??? Hypertension ??? Hyperlipidemia ??? Sleep apnea ??? Hypothyroidism ??? Depression ??? PDR (proliferative diabetic retinopathy) ??? Intermittent claudication ??? PAD (peripheral artery disease) ??? 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 Carotid stenosis ??? Hyperkeratosis palmaris et plantaris ??? Type 1 diabetes Scheduled Medications: ??? aspirin 81 mg Oral Daily ??? carvedilol 1.56 mg Oral BID WC ??? citalopram 20 mg Oral BID ??? levothyroxine 125 mcg Oral QAM ??? pantoprazole 40 mg Oral Daily ??? simvastatin 40 mg Oral QPM ??? losartan 50 mg Oral Daily ??? piperacillin-tazobactam 3.375 g Intravenous Q8H Operations This Hospitalization: Right groin washout and debridement ?? Subjective: Pain well controlled, denies nausea, vomiting, chest pain or shortness of breath. Straight cath x 1 overnight for 800cc Objective: Temp: [36 ??C (96.8 ??F)-36.8 ??C (98.2 ??F)] Heart Rate: [58-70] Resp: [-] BP: (103-170)/(41-77) SpO2: [92 %-100 %] Heart Rate from SpO2: [60 bpm-70 bpm] BMI: Weight: 95.7 kg (211 lb) (02/20/19 1432) BMI (Calculated): 33.04 BMI Classification: Obese Intake/Output Summary (Last 24 hours) at 02/21/2019 0801 Last data filed at 02/21/2019 0400 Gross per 24 hour Intake 960 ml Output 1105 ml Net -145 ml PHYSICAL EXAM: General: NAD, resting comfortably HEENT: PERRL, anicteric sclerae Neck: trachea midline Heart:: regular rate Pulmonary: non-labored breathing Abdomen: soft, non tender, non distended Neuro: no focal deficits Extremities: Groin dressing c/d/i, no evidence of hematoma Able to wiggle toes and plantar/dorsiflex at ankle Sensation intact to light touch Palpable DP and PT pulses. PT faint, easily dopplerable. Skin warm and well perfused ?? Labs: Recent Labs 02/21/1932602/20/19 1745 WBC 7.1 7.0 HGB 9.9* 10.4* HCT 31.9* 33.0* PLATELET 331 349 Recent Labs 02/21/1932602/20/19 1745 NA 141 142 K 4.8 5.0 CL 107 106 CO2 23 23 BUN 27* 29* CREATININE 1.60* 1.58* CALCIUM 8.7 9.1 Microbiology: Gram Stain Abnormal Few Neutrophils seen Rare Gram Positive Cocci seen New Studies: Assessment & Plan: Jennifer Branch is a 58 y.o. female 1 Day Post-Op right groin wash out, suspected surgical wound infection present on admission, will continue Zosyn and add Vancomycin. Did well overnight, afebrile,pain well controlled -start Vancomycin continue Zosyn -follow up cultures -start SQH -to OR tomorrow for washout -NPO after midnight tonight Anticoagulation: [facility] DVT Prophylaxis Antiplatelet: SANJIV Victor APRN 02/21/2019 Pager: [phone] * Clinton Pierre RRT - 02/21/2019 12:22 AM EST Respiratory Therapy NIV Note NIV Settings: NIV Mode: CPAP (V30) PEEP/CPAP (cm H2O): 12 cm H20 NIV Measurements: Resp: 15 Mve: 7.1 Leak (L/min): 34.6 L/min Vte: 464 SpO2: 94 % Skin Assessment: NIV Skin Assessment WDL: WDL Mepilex Applied: No Nares Assessment WDL: WDL Assessment: 2307 Placed Pt on overnight NIV. Pt compliant t/o the night. Plan: Will continue to support Pt with overnight NIV use. Clinton Pierre RRT * Milton Grider MD - 02/20/2019 8:17 PM EST Vascular Surgery Post Op Check Jennifer Branch is a 58 y.o. female s/p R groin washout and debridement Subjective: No nausea/vomiting, chest pain, SOB, pain well controlled at 5/10, offers no complaints. Tolerating PO liquids and food. She reports having a continuous insulin pump and is running out ofinsulin. Has not yet voided but going to attempt on the bedpan now. Objective: Temp: [36 ??C (96.8 ??F)-36.8 ??C (98.2 ??F)] Heart Rate: [60-70] Resp: [-] BP: (117-170)/(48-77) SpO2: [94 %-100 %] Heart Rate from SpO2: [60 bpm-70 bpm] I/O last 3 completed shifts: In: 400 [I.V.:400] Out: 5 [Blood:5] No intake/output data recorded. Physical Exam General: resting comfortably, no acute distress HEENT: normocephalic, atraumatic CVS: regular rate Pulm: non-labored breathing on RA Abd: soft, non tender, non distended Neuro: no focal deficits, moving all extremities RLE Groin dressing c/d/i, no evidence of hematoma Able to wiggle toes and plantar/dorsiflex at ankle Sensation intact to light touch Palpable DP and PT pulses. PT faint, easily dopplerable. Skin warm and well perfused Assessment/Plan: Jennifer Branch is a 58 y.o. female s/p R groin washout and debridement. currently in stable condition and recovering well. The incision is c/d/i. Insulin for pump ordered after discussion with pharmacy. - pain well controlled - hemodynamically stable - DM controlled diet Milton Grider MD * Joyce Fierro RN - 02/20/2019 6:36 PM EST 1830 Pt alert, oriented. VSS. Medicated for right groin burning. Room air. Tolerating po without nausea. Pt checking blood glucose with home meter frequently. Insulin pump delivering small basal doseas well as bolus if needed. CBG 112 presently. Pt eating snack . 1950 Pt eating dinner, reports manageable pain of right froin incision. States that her insulin delivery system is almost out of insulin, as she did not know she would be in the hospital and thus didnot bring extra. Vascular supervisor international reservations Dr. Marni mckeon. 1999 Dr Grider to bedside. Discuss insulin administration. To clarify and address insulin orders. 2130 Report to TAMEKA Thurman. Call to Pharmacy to have refill of insulin cartridge sent to unit forrm 304. VSS. Pt reporting pain 08/17. documented in this encounter H&P Notes * Zenobia Quijano MD - 02/20/2019 11:21 AM EST Vascular Surgery History and Physical REASON FOR ADMISSION: Right groin hematoma HPI: Jennifer Branch is a 58 y.o. female with PMH DM, former smoker, PAD who was found to have stenosis in her RLE proximal vein bypass. 02/04/19 she underwent right femoral endarterectomy, revisionof proximal vein bypass, with bovine patch angioplasty, Right profundaplasty with bovine patch angioplasty. She presented to vascular surgery clinic and was found to have a hematoma which was actively draining. Pt will require admission and OR for right groin washout and wound vac placement. She is on pradaxa for bypass patency. RoS: 10 point review of systems negative except as noted above. Past Medical / Surgical History: Patient Active Problem List Diagnosis ??? Groin [...] Overview Note: A1C is a little high Social History Socioeconomic History ??? Marital status: Spouse name: Not on file ??? Number of children: Not on file ??? Years of education: Not on file ??? Highest education level: Not on file Occupational History ??? Not on file Social Needs ??? Financial resource strain: Not on file ??? Food insecurity: Worry: Not on file Inability: Not on file ??? Transportation needs: Medical: Not on file Non-medical: Not on file Tobacco Use ??? Smoking status: Former Smoker Packs/day: 0.50 Years: 30.00 Pack years: 15.00 Types: Cigarettes Last attempt to quit: 08/14/2014 Years since quittin.5 ??? Smokeless tobacco: Never Used ??? Tobacco comment: Smoked 1 ppd for 30 years Substance and Sexual Activity ??? Alcohol use: No ??? Drug use: No ??? Sexual activity: Not on file Lifestyle ??? Physical activity: Days per week: Not on file Minutes per session: Not on file ??? Stress: Not on file Relationships ??? Social connections: Talks on phone: Not on file Gets together: Not on file Attends baptist service: Not on file Active member of club or organization: Not on file Attends meetings of clubs or organizations: Not on file Relationship status: Not on file ??? Intimate partner violence: Fear of current or ex partner: Not on file Emotionally abused: Not on file Physically abused: Not on file Forced sexual activity: Not on file Other Topics Concern ??? Not on file Social History Narrative ??? Not on file Family History Problem Relation Age of Onset [...] Blindness Neg Hx ??? Amblyopia Neg Hx Medications: No current facility-administered medications for this encounter. Current Outpatient Medications Medication Sig Dispense Refill ??? glucagon HCl (GLUCAGON, HUMAN RECOMBINANT,) 1 mg Recon Soln Inject 1 mg into the muscle as needed (as needed for hypoglycemia). (Patient not taking: Reported on 02/20/2019) 1 mL 3 ??? clindamycin (CLEOCIN) 300 mg Capsule Take 2 capsules by mouth 3 times daily for 10 days. 60 capsule 2 ??? acetaminophen (TYLENOL) 500 mg Tablet Take [...] Diabetic Supplies, Miscellan. Misc Form faxed to [employer] for pump supplies. 100 each 12 ??? losartan (COZAAR) 100 mg Tablet Take 50 mg by mouth daily. ??? Magnesium 250 mg Tab Take by mouth daily. ??? aspirin 81 mg EC tablet Take 81 mg by mouth daily. ??? insulin lispro (HUMALOG) 100 unit/mL injection Inject 55-60 Units subcutaneously continuous. Via insulin pump Allergies: Sulfa (sulfonamide antibiotics) and Pcn [penicillins] Physical Exam: Gen: NAD, alert and oriented x3 Cardiac: Regular Pulm: Normal work of breathing on room air GI: Soft, NT ND EXT: right groin with palpable collection, no cellulitis, ttp, bloody drainage. Ext WWP, palp RLE DP/PT Imaging: None Assessment and Plan: Jennifer Branch is a 58 y.o. female with PMH DM, former smoker, PAD who was found to have stenosis in her RLE proximal vein bypass. 02/04/19 she underwent right femoral endarterectomy, revision of proximal vein bypass, with bovine patch angioplasty, Right profundaplasty with bovine patch angioplasty. She presented to vascular surgery clinic and was found to have a hematoma which was actively draining. Pt will require admission and OR for right groin washout and wound vac placement. Admit to vascular surgery, Dr. Fontaine. OR for right groin washout Hold pradaxa, start heparin drip postop Continue home BP and diabetic meds. Patient with insulin pump. Floor level of care Zenobia Quijano MD, MS Vascular surgery fellow Service pager [phone] documented in this encounter Miscellaneous Notes * Plan of Care - Claudine Peace RN - 03/01/2019 7:28 AM EST Problem: Patient Care Overview Goal: Plan of Care Review Outcome: Ongoing (Interventions Implemented as Appropriate) 02/25/19 1756 02/28/19 1949 Coping/Psychosocial Plan Of Care Reviewed With -- patient Plan of Care Review Progress progress toward functional goals as expected -- OUTCOME EVALUATION NOTE: OUTCOME SUMMARY: Pt resting between care throughout shift. Neurovascular checks WDL. Frequent repositioning encouraged. Pt up stand by assist. Pt is voiding adequately. Pt's blood glucose monitor over night, we took them manually on floors glucometer, and pt treated accordingly with her insulin pump, see doc flowsheet. Wound vac in place to right groin at neg 125. VSS. Will continue to monitor. PLAN MOVING FORWARD Pain control, mobilize, d/c planning. INDIVIDUALIZED FALL PREVENTION INTERVENTIONS: Patient-specific fall risk factors per assessment: [current deficits]: Hospital environment, pain medications, impaired mobility. Assistance [level of assistance required for transfers and ambulation]: Stand by assist Supervision [direct monitoring required during toileting and ADLs]: Arms length minimal assist Surveillance [continuous indirect monitoring]: Hourly rounding, Jamieo NKErnestina at bedside, call leggett within reach. Goal: Individualization & Mutuality Outcome: Ongoing (Interventions Implemented as Appropriate) 02/21/19 1544 02/23/19 1634 02/24/19 1405 Individualization Patient Specific Goals -- fast recovery -- Patient Specific Interventions -- -- wound vac Mutuality/Individual Preferences What Anxieties, Fears or Concerns Do You Have About Your Health or Care? -- -- -- What Questions Do You Have About Your Health or Care? what are they planning on doing? -- -- What Information Would Help Us Give You More Personalized Care? none -- -- 02/26/19 174 Individualization Patient Specific Goals -- Patient Specific Interventions -- Mutuality/Individual Preferences What Anxieties, Fears or Concerns Do You Have About Your Health or Care? anxious to go home What Questions Do You Have About Your Health or Care? -- What Information Would Help Us Give You More Personalized Care? -- Goal: Fall Prevention-Safe Patient Handling Outcome: Ongoing (Interventions Implemented as Appropriate) 02/28/1980802/28/191948 Restraint Interventions Safety Promotion/Fall Prevention -- activity supervised;nonskid shoes/slippers when out of bed;safety round/check completed Activity Activity Type -- activity adjusted per tolerance Activity Assistance Provided -- assistance, stand-by Assistive Device Utilized -- front-wheel walker Positioning Body Position -- supine, head elevated Daily Care Interventions Self-Care Promotion independence encouraged;BADL personal objects within reach -- Vazquez Fall Risk History of Falling -- 0 Secondary Diagnosis -- 15 Ambulatory Aids -- 0 Intravenous Therapy/Heparin/Saline Lock -- 20 Gait/Transferring -- 10 Mental Status -- 0 Score -- 45 OTHER Vazquez Fall Risk -- High Goal: Infection Control Outcome: Ongoing (Interventions Implemented as Appropriate) 02/28/191948 Safety Interventions Isolation Precautions standard precautions maintained Infection Prevention single patient room provided;rest/sleep promoted;personal protective equipmentutilized;equipment surfaces disinfected;environmental surveillance performed Coping Strategies Supportive Measures self-care encouraged Goal: Discharge Needs Assessment Outcome: Ongoing (Interventions Implemented as Appropriate) 02/23/19 1634 02/24/19 1405 02/25/19 175 Discharge Needs Assessment Concerns To Be Addressed -- -- coping/stress concerns Readmission Within The Last 30 Days -- previous discharge plan unsuccessful -- Equipment Needed After Discharge -- -- other (see comments) (Wound VAC) Discharge Disposition still a patient -- -- Activity/Self Care Review of Systems Equipment Currently Used at Home none -- -- Current Health Anticipated Changes Related to Illness -- none -- Living Environment Transportation Available -- family or friend will provide -- Goal: Interdisciplinary Rounds/Family Conf Outcome: Ongoing (Interventions Implemented as Appropriate) 02/28/19 1527 Interdisciplinary Rounds/Family Conf Participants patient;family;nursing;geriatric case manager * Plan of Care - Hilton Montez, TAMEKA - 02/28/2019 5:50 PM EST Problem: Patient Care Overview Goal: Plan of Care Review Outcome: Ongoing (Interventions Implemented as Appropriate) 02/25/19175502/28/19 0809 Coping/Psychosocial Plan Of Care Reviewed With -- patient Plan of Care Review Progress progress toward functional goals as expected -- OUTCOME EVALUATION NOTE: OUTCOME SUMMARY: Patient alert and oriented x4 throughout shift. Pain managed without intervention. Wound Vac remained patent at -125mmHg of suction throughout shift. Mazariegos catheter discontinued, patient voiding adequately. Patient up to bathroom multiple times during shift. Blood glucose managed with personal insulin pump per team orders. Patient safety maintained. PLAN MOVING FORWARD: Monitor wound vac. Monitor urine output. Prepare for discharge. INDIVIDUALIZED FALL PREVENTION INTERVENTIONS: Patient-specific fall risk factors per assessment: [current deficits]: Wound vac. Impaired mobility. Assistance [level of assistance required for transfers and ambulation]: SBA Supervision [direct monitoring required during toileting and ADLs]: No. Surveillance [continuous indirect monitoring]: Masimo. Patient-specific fall prevention interventions for sensory deficits provided, if applicable: [X] No CPG GOAL OUTCOME EVALUATION: Ongoing. * Plan of Care - Raj Saldana RN - 02/28/2019 4:48 AM EST Problem: Patient Care Overview Goal: Plan of Care Review Outcome: Ongoing (Interventions Implemented as Appropriate) 02/25/19175502/27/191999 Coping/Psychosocial Plan Of Care Reviewed With -- patient Plan of Care Review Progress progress toward functional goals as expected -- OUTCOME EVALUATION NOTE: OUTCOME SUMMARY: Patient rested between care this shift. ??No acute events overnight. ??A&O x4. ??Bradycardic intermittently; otherwise vital signs stable. ??CPAP worn throughout the night for MANISH. ??Pain controlled with PRN pain medications (see MAR). ??Dressing to R groin c/d/i. ??Wound vac continues to run at 125 mmHg with minimal drainage. ??+CMS. ??Mazariegos remains in place and is draining adequately (see I&O flowsheet). ??Blood glucose monitored q4. ??Continues to utilize own insulin pump and dose herself accordingly (see flowsheet for details). ??Tolerating PO intake well. Frequent repositioning encouraged while in bed. ??Will continue to monitor. ? PLAN MOVING FORWARD: ?? Pain control, mobilization, mazariegos care, q4 blood glucose checks, OR today, d/c planning ?? INDIVIDUALIZED FALL PREVENTION INTERVENTIONS: ?? Patient-specific fall risk factors per assessment: [current deficits]:?Recent surgery, generalized weakness, multiple lines/drains, hospital environment ? Assistance [level of assistance required for transfers and ambulation]:?1 assist; not OOB this shift ?? Supervision [direct monitoring required during toileting and ADLs]:?Hands on as needed during ADLs ?? Surveillance [continuous indirect monitoring]:?VINCE Ma at bedside, hourly rounding, patient instructed to ring for nurse assist via call leggett Patient-specific fall prevention interventions for sensory deficits provided, if applicable: [X] N/A CPG GOAL OUTCOME EVALUATION: Goal: Individualization & Mutuality Outcome: Ongoing (Interventions Implemented as Appropriate) 02/21/19 1544 02/23/19 1634 02/24/19 1405 Individualization Patient Specific Goals -- fast recovery -- Patient Specific Interventions -- -- wound vac Mutuality/Individual Preferences What Anxieties, Fears or Concerns Do You Have About Your Health or Care? -- -- -- What Questions Do You Have About Your Health or Care? what are they planning on doing? -- -- What Information Would Help Us Give You More Personalized Care? none -- -- 02/26/19 1741 Individualization Patient Specific Goals -- Patient Specific Interventions -- Mutuality/Individual Preferences What Anxieties, Fears or Concerns Do You Have About Your Health or Care? anxious to go home What Questions Do You Have About Your Health or Care? -- What Information Would Help Us Give You More Personalized Care? -- Goal: Fall Prevention-Safe Patient Handling Outcome: Ongoing (Interventions Implemented as Appropriate) 02/25/19 0353 02/27/19 1300 02/27/191999 Restraint Interventions Safety Promotion/Fall Prevention -- -- activity supervised;fall prevention program maintained;muscle strengthening facilitated;nonskid shoes/slippers when out of bed;safety round/check completed Activity Activity Type -- -- activity adjusted per tolerance Activity Assistance Provided -- -- assistance, stand-by Assistive Device Utilized -- none -- Positioning Body Position -- -- supine, head elevated Daily Care Interventions Self-Care Promotion independence encouraged -- -- Vazquez Fall Risk History of Falling -- -- 0 Secondary Diagnosis -- -- 15 Ambulatory Aids -- -- 15 Intravenous Therapy/Heparin/Saline Lock -- -- 20 Gait/Transferring -- -- 20 Mental Status -- -- 0 Score -- -- 70 OTHER Vazquez Fall Risk -- -- High Goal: Infection Control Outcome: Ongoing (Interventions Implemented as Appropriate) 02/27/191999 Safety Interventions Isolation Precautions standard precautions maintained Infection Prevention rest/sleep promoted;single patient room provided Coping Strategies Supportive Measures active listening utilized;decision-making supported;goal setting facilitated;positive reinforcement provided;problem solving facilitated;relaxation techniques promoted;self-care encouraged;verbalization of feelings encouraged Goal: Discharge Needs Assessment Outcome: Ongoing (Interventions Implemented as Appropriate) 02/23/19 1634 02/24/19 1405 02/25/19 175 Discharge Needs Assessment Concerns To Be Addressed -- -- coping/stress concerns Readmission Within The Last 30 Days -- previous discharge plan unsuccessful -- Equipment Needed After Discharge -- -- other (see comments) (Wound VAC) Discharge Disposition still a patient -- -- Activity/Self Care Review of Systems Equipment Currently Used at Home none -- -- Current Health Anticipated Changes Related to Illness -- none -- Living Environment Transportation Available -- family or friend will provide -- Goal: Interdisciplinary Rounds/Family Conf Outcome: Ongoing (Interventions Implemented as Appropriate) 02/25/19 175 Interdisciplinary Rounds/Family Conf Participants geriatric case manager;physical therapy;physician;nursing Problem: Skin Integrity Impairment, Risk/Actual (Adult) Goal: Identify Related Risk Factors and Signs and Symptoms Related risk factors and signs and symptoms are identified upon initiation of Human Response Clinical Practice Guideline (CPG) Outcome: Ongoing (Interventions Implemented as Appropriate) 02/23/19 1634 02/25/19 0353 Skin Integrity Impairment, Risk/Actual Skin Integrity Impairment, Risk/Actual: Related Risk Factors -- surgery/procedure Signs and Symptoms (Skin Integrity Impairment) (incision/wound) -- Goal: Skin Integrity/Wound Healing Patient will demonstrate the desired outcomes by discharge/transition of care. Outcome: Ongoing (Interventions Implemented as Appropriate) 02/25/19 1752 Skin Integrity Impairment, Risk/Actual (Adult) Skin Integrity/Wound Healing making progress toward outcome * Op Note - Patricia Jensen MD - 02/27/2019 6:20 PM EST [facility] [place] Operative Note Patient Name: Jennifer Branch : [id number] MR#: [id number] Case Date: 02/27/2019 Surgeon: Surgeon(s) and Role: * Patricia Jensen MD - Primary * Emeli Wall MD - Resident Preoperative diagnosis: right groin wound infection Postoperative diagnosis: right groin wound infection Procedures: Right groin wound, partial closure Wound vac change under anesthesia Anesthesia: General Estimated Blood Loss: none Specimens removed during surgery: One black sponge was removed from the right groin wound Drains: wound vac Surgical Closure: wound vac: one black sponge placed in wound. Wound dimensions 6.5cm x 3cm x 2cm. Disposition: awakened from anesthesia, extubated and taken to the recovery room in a stable condition, having suffered no apparent untoward event. Condition: doing well without problems HPI/Surgical Indications: 58 y.o.??female??with PMH DM, former smoker, PAD??who was found to have stenosis in her RLE proximal vein bypass.??02/04/19 she underwent right femoral endarterectomy, revision of proximal vein bypass, with bovine patch angioplasty,??Right profundaplasty with bovine patch angioplasty. She presented to vascular surgery clinic and was found to have a hematoma which was actively draining. Pt went to OR for right groin washout and wound vac placement.??Was taken to the OR on 02/22 for debridement and vac placement. Today to undergo vac change under anesthesia due to depth of wound. Procedure Description: Jennifer Branch was identified in the hospital room. At that time the risksand benefits of right groin wound vac change were discussed. Her questions were answered and informed consent was obtained. She was brought into the operating room and positioned supine on the operating table. Anesthesia was induced.The wound vac was taken down and 1 continuous piece of black sponge was removed from the right groin. Her right groin was then prepped with betadine and draped in theusual sterile fashion. A full standard time out was performed and all were in favor of proceeding. ?? We then turned our attention to the right groin. The wound was explored and then irrigated with normal saline. The wound was then partially closed at its deep central and proximal area with interrupted 2-0 vicryl suture. The wound was then irrigated with saline and packed with 1 piece of black sponge. The wound measurements were approximately 6.5cm x3cm x 2cm. The wound and sponge were then dressed with wound vac dressings and set to 125mmHg continuous suction. The patient was then awoken from general anesthesia having suffered no untoward event. At case end,all instrument and sponge counts were correct. The attending of record, Dr. Jensen, was scrubbed andpresent for the procedure. Emeli Wall MD 02/27/2019 Attending Attestation I was the attending physician supervising the resident/fellow in the above care and I was present with the resident/fellow for the entire procedure. Patricia Jensen MD Section of Vascular Surgery * Plan of Care - Gogo Terrell RN - 02/27/2019 6:08 PM EST Problem: Patient Care Overview Goal: Plan of Care Review Outcome: Ongoing (Interventions Implemented as Appropriate) 02/25/19 1756 02/27/19 0800 Coping/Psychosocial Plan Of Care Reviewed With -- patient Plan of Care Review Progress progress toward functional goals as expected -- OUTCOME EVALUATION NOTE: OUTCOME SUMMARY: Patient was NPO all day awaiting OR time for wound vac change. Did not leave the floor until 17:15.Patient monitored blood glucose through own pump and became worried that levels would drop too low;requested IV glucose to bring sugar up as she cannot eat/drink, see MAR. Wound vac to right groin CDI at -125, voiding adequately, had BM today after 5 days without. Denied pain. PLAN MOVING FORWARD: Plan for next wound vac change at bedside Monday, then possibly discharge following if tolerates well. INDIVIDUALIZED FALL PREVENTION INTERVENTIONS: Patient-specific fall risk factors per assessment: [current deficits]: Lines and tubes, NPO, hospital environment Assistance [level of assistance required for transfers and ambulation]: Independent in room, standby with walker in hallway Supervision [direct monitoring required during toileting and ADLs]: independent Surveillance [continuous indirect monitoring]: Jamieo, purposeful rounding Patient-specific fall prevention interventions for sensory deficits provided, if applicable: [X] Yes CPG GOAL OUTCOME EVALUATION: * Plan of Care - Raj Saldana RN - 02/27/2019 4:57 AM EST Problem: Patient Care Overview Goal: Plan of Care Review Outcome: Ongoing (Interventions Implemented as Appropriate) 02/25/19175502/26/192029 Coping/Psychosocial Plan Of Care Reviewed With -- patient Plan of Care Review Progress progress toward functional goals as expected -- OUTCOME EVALUATION NOTE: OUTCOME SUMMARY: Patient rested between care this shift. ??No acute events overnight. A&O x4. ??Bradycardic intermittently; otherwise vital signs stable. ??CPAP worn throughout the night for MANISH. ??Pain controlled with PRN pain medications (see MAR). ??Dressing to R groin c/d/i. ??Wound vac continues to run at 125 mmHg with minimal drainage. ??+CMS. ??Mazariegos remains in place and is draining adequately (see I&O flowsheet). ??Blood glucose monitored q4. ??Continues to utilize own insulin pump and dose herself accordingly (see flowsheet for details). ??Frequent repositioning encouraged while in bed. ??NPOsince 0000. Plan to for vac change in OR today. Will continue to monitor. ? PLAN MOVING FORWARD: ?? Pain control, mobilization, mazariegos care, q4 blood glucose checks, NPO, OR today, d/c planning ?? INDIVIDUALIZED FALL PREVENTION INTERVENTIONS: ?? Patient-specific fall risk factors per assessment: [current deficits]:?Recent surgery, generalized weakness, multiple lines/drains, hospital environment ? Assistance [level of assistance required for transfers and ambulation]:?1 assist; not OOB this shift ?? Supervision [direct monitoring required during toileting and ADLs]:?Hands on as needed during ADLs ?? Surveillance [continuous indirect monitoring]:?VINCE Ma at bedside, hourly rounding, patient instructed to ring for nurse assist via call leggett ?? Patient-specific fall prevention interventions for sensory deficits provided, if applicable: [X] N/A CPG GOAL OUTCOME EVALUATION: Goal: Individualization & Mutuality Outcome: Ongoing (Interventions Implemented as Appropriate) 02/21/19 1544 02/23/19 1634 02/24/19 1405 Individualization Patient Specific Goals -- fast recovery -- Patient Specific Interventions -- -- wound vac Mutuality/Individual Preferences What Anxieties, Fears or Concerns Do You Have About Your Health or Care? -- -- -- What Questions Do You Have About Your Health or Care? what are they planning on doing? -- -- What Information Would Help Us Give You More Personalized Care? none -- -- 02/26/19 1741 Individualization Patient Specific Goals -- Patient Specific Interventions -- Mutuality/Individual Preferences What Anxieties, Fears or Concerns Do You Have About Your Health or Care? anxious to go home What Questions Do You Have About Your Health or Care? -- What Information Would Help Us Give You More Personalized Care? -- Goal: Fall Prevention-Safe Patient Handling Outcome: Ongoing (Interventions Implemented as Appropriate) 02/25/19 0353 02/26/19 2030 Restraint Interventions Safety Promotion/Fall Prevention -- activity supervised;fall prevention program maintained;muscle strengthening facilitated;nonskid shoes/slippers when out of bed;safety round/check completed Activity Activity Type -- activity adjusted per tolerance Activity Assistance Provided -- assistance, stand-by Assistive Device Utilized -- front-wheel walker Positioning Body Position -- supine, head elevated Daily Care Interventions Self-Care Promotion independence encouraged -- Vazquez Fall Risk History of Falling -- 0 Secondary Diagnosis -- 15 Ambulatory Aids -- 15 Intravenous Therapy/Heparin/Saline Lock -- 20 Gait/Transferring -- 10 Mental Status -- 0 Score -- 60 OTHER Vazquez Fall Risk -- High Goal: Infection Control Outcome: Ongoing (Interventions Implemented as Appropriate) 02/26/19 2030 Safety Interventions Isolation Precautions standard precautions maintained Infection Prevention rest/sleep promoted;single patient room provided Coping Strategies Supportive Measures active listening utilized;decision-making supported;goal setting facilitated;positive reinforcement provided;problem solving facilitated;relaxation techniques promoted;self-care encouraged;verbalization of feelings encouraged Goal: Discharge Needs Assessment Outcome: Ongoing (Interventions Implemented as Appropriate) 02/23/19 1634 02/24/19 1405 02/25/19 1753 Discharge Needs Assessment Concerns To Be Addressed -- -- coping/stress concerns Readmission Within The Last 30 Days -- previous discharge plan unsuccessful -- Equipment Needed After Discharge -- -- other (see comments) (Wound VAC) Discharge Disposition still a patient -- -- Activity/Self Care Review of Systems Equipment Currently Used at Home none -- -- Current Health Anticipated Changes Related to Illness -- none -- Living Environment Transportation Available -- family or friend will provide -- Goal: Interdisciplinary Rounds/Family Conf Outcome: Ongoing (Interventions Implemented as Appropriate) 02/25/19 1753 Interdisciplinary Rounds/Family Conf Participants geriatric case manager;physical therapy;physician;nursing Problem: Skin Integrity Impairment, Risk/Actual (Adult) Goal: Identify Related Risk Factors and Signs and Symptoms Related risk factors and signs and symptoms are identified upon initiation of Human Response Clinical Practice Guideline (CPG) Outcome: Ongoing (Interventions Implemented as Appropriate) 02/23/19 1634 02/25/19 0353 Skin Integrity Impairment, Risk/Actual Skin Integrity Impairment, Risk/Actual: Related Risk Factors -- surgery/procedure Signs and Symptoms (Skin Integrity Impairment) (incision/wound) -- Goal: Skin Integrity/Wound Healing Patient will demonstrate the desired outcomes by discharge/transition of care. Outcome: Ongoing (Interventions Implemented as Appropriate) 02/25/19 1752 Skin Integrity Impairment, Risk/Actual (Adult) Skin Integrity/Wound Healing making progress toward outcome * Plan of Care - Lisbet Bailon RN - 02/26/2019 5:47 PM EST Problem: Patient Care Overview Goal: Plan of Care Review Outcome: Ongoing (Interventions Implemented as Appropriate) 02/25/19 1756 02/26/19 0708 Coping/Psychosocial Plan Of Care Reviewed With -- patient Plan of Care Review Progress progress toward functional goals as expected -- OUTCOME EVALUATION NOTE: OUTCOME SUMMARY: Mazariegos in place and draining, wound vac running at -125 Pt continues to monitor own glucose and manage insulin pump Pt oob w/ mobility tech, PT, and OT. Some orthostatic hypotension and dizziness noted, but resolvesover time Pain adequately controlled PLAN MOVING FORWARD: I&D in OR tomorrow w/ wound vac change Bedside wound vac change Monday w/ potential discharge INDIVIDUALIZED FALL PREVENTION INTERVENTIONS: Patient-specific fall risk factors per assessment: [current deficits]: Lines and drains, orthostatic, generalized weakness Assistance [level of assistance required for transfers and ambulation]: Stand by Supervision [direct monitoring required during toileting and ADLs]: none Surveillance [continuous indirect monitoring]: lizzie Patient-specific fall prevention interventions for sensory deficits provided, if applicable: [X] No CPG GOAL OUTCOME EVALUATION: * Plan of Care - Ayo Carbone PT - 02/26/2019 3:10 PM EST PHYSICAL THERAPY NOTE Orders received and chart reviewed. Spoke with patient who reported ambulating 2 laps earlier todaywith no difficulties. Pt reports she has support from boyfriend at home and has no concerns with functional mobility at this time. Pt safe for discharge to home once medically cleared. Therapy to sign off. Ayo Carbone PT, DPT Pager [phone] Inpatient Rehabilitation * Plan of Care - Dex Medellin OT - 02/26/2019 10:55 AM EST Occupational Therapy Evaluation Patient profile: Jennifer Branch is a 58 y.o. female admitted on 02/20/2019 ??with PMH DM, former smoker, PAD??who was found to have stenosis in her RLE proximal vein bypass.??02/04/19 she underwentright femoral endarterectomy, revision of proximal vein bypass, with bovine patch angioplasty,??Right profundaplasty with bovine patch angioplasty. She presented to vascular surgery clinic and wasfound to have a hematoma which was actively draining. Operations This Hospitalization: 02/20: Right groin washout and debridement 02/22: Right groin debridement, wound vac placement Past Medical History: Diagnosis Date ??? Allergy [...] *) performed by Kaity Fontaine MD at [facility] MAIN OR ??? PRO BRONCHOSCOPY, DIAGNOSTIC N/A 06/21/2018 BRONCHOSCOPY, DIAGNOSTIC (WRVU 2.78) performed by César Escobar MD at [facility] MAIN OR ? ? PRO DEBRIDEMENT SUBCUTANEOUS TISSUE 20 SQCM/< Right 02/22/2019 DEBRIDEMENT SKIN AND SUBCU, LOWER EXTREMITY (WRVU 1.01) [facility] ? PRO DEBRIDEMENT SUBCUTANEOUS TISSUE 20 SQCM/< Right 02/25/2019 DEBRIDEMENT SKIN AND SUBCU, LOWER EXTREMITY (WRVU 1.01) performed by Kaity Fontaine MD at [facility] ? ? PRO EDG FLEXIBLE TRANSORAL ABLATE TUMOR POLYP/LESION W/DILATION & WIRE N/A 06/22/2016 EGD, TRANSORAL; WITH ABLATION OF TUMOR(S), POLYP(S), OR OTHER LESION(S) (WRVU 4.26) performed by Christos Donald MD at [facility] ENDOSCOPY ??? PRO INJECT NERV BLCK, INTERCOST, MULTPL Right 06/21/2018 NERVE BLOCK, INTERCOSTAL NERVE, MULTIPLE (WRVU 1.68) [facility]?? PRO REOPERATION, BYPASS GRAFT Right 02/04/2019 @RE-OP FOR RE-DO LOWER EXTREMITY BYPASS GRAFT, >1 MONTH P\ ORIGINAL SURGERY, ADD-ON CODE (WRVU 3.08) performed by Kaity Fontaine MD at [facility] MAIN OR ??? PRO THORACOSCOPY WITH THERAPEUTIC WEDGE RESECTION INITIAL UNILAT Right 06/21/2018 @THORACOSCOPY, SURG; W/THERAPEUTIC WEDGE RESECTION, INIT UNILATERAL (WRVU 14.5) performed by César Escobar MD at [facility] MAIN OR ??? PRO THROMBOENDARTECTMY FEMORAL COMMON Right 02/04/2019 @ENDARTERECTOMY, COMMON FEMORAL W OR W/O PATCH GRAFT (WRVU 15.31) performed by Kaity Fontaine MD [facility] OR ??? PRO THROMBOENDARTECTMY FEMORAL DEEP Right 02/04/2019 @ENDARTERECTOMY, PROFUNDAPLASTY, DEEP, PROFUNDA FEMORIS W OR W/O PATCH GRAFT (WRVU 18.58) performedby Kaity Fontaine MD at [facility] MAIN OR ??? PRO TX EXTENSIVE RETINOPATHY, PHOTOCOAGULATION Left 2018 PRP OS - [place], [place] ??? PRO UPPER GI ENDOSCOPY, BIOPSY N/A 10/24/2016 UPPER GASTROINTESTINAL ENDOSCOPY,WITH BIOPSY SINGLE OR MULTIPLE (WRVU 2.49) performed by Agapito Parmar MD at [facility] ENDOSCOPY ??? PRO UPPER GI ENDOSCOPY, DIAGNOSTIC N/A 06/22/2016 EGD, UPPER GI ENDOSCOPY performed by Christos Donald MD at [facility] ENDOSCOPY ??? RETINAL LASER SURGERY Left 01/20/2012 [...] SFA stents ??? VASCULAR SURGERY 1009 Right RUBBER COMPOUNDER-AK pop vein graft ??? VS ARTERIOGRAM LOWER EXTREMITY VASCULAR SURGERY 04/27/2018 VS Arteriogram Lower Extremity Vascular Surgery 04/27/2018 Kaity Fontaine MD [facility] INTERVENTIONL RAD ??? 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 She has a [employer] parrot, and a pot belly pig. Home Setup: Duplex, 2 levels but pt stays on the main level. 0 HERNAN. Daughter and 3 grandsons live next door. Bathroom has a walk-in shower and not big enough for shower shower. DME: none Baseline ADL/Mobility: Pt is fully independent with all I/ADLs at baseline. Pt does not provide hands on assist for the 2 people she cares for but manages the meals and medication. Her SO is home to assist as well. She has had no falls at [facility]. Precautions/Special Considerations: insulin pump, groin incision, mazariegos catheter Subjective: I feel lightheaded sometimes while I am up. Objective: Seen today for OT evaluation. Cognitive Status/Behavior: ?? Behavior / Mood: alert and cooperative ?? Alert and oriented to: person, place, time and situation ?? Follows commands: 2 step ?? Attention: WFL ?? Safety awareness: WFL Vision & Perception: ?? WNL/WFL ?? corrective lenses for reading Communication: WFL Range of motion, strength, coordination: Hand dominance: right Bilateral UEs are within functional limitations LE limitations: Limited ability to flex at waist 2' R groin incision Activities of Daily Living: Self-feeding: set-up Grooming: Modified independent /p set-up at sink, sitting/standing. Dressing: ?? Pt able to switch out gown once set-up. Pt doesn't wear socks at home and will modify footwear at home and wear slip ons. ?? Discussed strategies for donning pants in relation to wound vac. Pt will have smaller unit than one currently using in hospital. Bathing: ?? Pt told to continue with sponge bath routine until cleared to shower by given the fact she has wound vac. ?? Pt modified independent/supervised with task /p set-up in bathroom at sink, seated/standing. Toileting: Transfer: modified independent, and supervised walking to/from task given equipment. Hygiene: independent Still with mazariegos catheter, and will probably have until after Monday, as goes back to OR Monday. Functional Mobility: Supine to sit: NA, up in recliner Sit to stand: modified independent Ambulation: supervised unaided, and ambulated about her room, and unit. Therapist hold mazariegos catheter and wound vac. Stand to sit: modified independent Balance: Sitting balance: good Standing balance:supervised 2' c/o lightheadness Vitals: Pt on room air. Standing Lying Sitting Standing Following ADL SpO2 94% 95 95 95 96% Heart Rate 64 55 62 63 63 Blood Pressure 88/51 150/52 105/51 102/51 107/48 Pt up in chair upon arrival. Pt lightheaded upon standing, and states she has been experiencing that on and off with moving. Had Pt lie down and did orthostatic vitals with 2 minutes between each. Ptstates normally she is hypertensive at baseline and is on meds. Pain: slight discomfort in R groin Skin: wound vac R groin ,and still with mazariegos catheter Education: patient have been educated on Role of occupational therapy/rehabilitation, Transfers, ADL, Safety, Functional Mobility, Activity pacing/Energy conservation, Recommendations and Discharge planning and verbalizes and demonstrates understanding. Patient status, treatment, and mobility recommendations discussed with nursing. Assessment: Pt has been seen for occupational therapy evaluation. Jennifer Branch presents with the following performance skill deficits and client factors: lighteadedness with positional changes, with decreased flexibility at R hip 2' discomfort, and limited by equipment (has mazariegos catheter and wound vac). These performance deficits have led to activity limitations and participation restrictions in the following areas of occupation: dressing, bathing, transfers/mobility and community mobility. However, despite the deficits listed above pt demonstrates the ability to mobilize with supervision with assistance for equipment, and complete ADLs modified with set-up. Anticipate that pt will return home with assistance once medically ready. Do not anticipate further OT needs while hospitalized. Did speak to RN regarding Pt's lightheadedness, and findings regarding BP. Equipment needs at discharge: none Anticipated Discharge Disposition: home with assist, other (see comments)([facility] for nursing (ie. wound vac)) Other Recommendations: ?? Utilize upright chair position using bed features or transfer to recliner chair as appropriate with supervision, ambulate as tolerated ?? Encourage participation in ADL's by providing set up A on tray table and physical assist only asneeded Plan: OT: Therapy Frequency: evaluation only Total Evaluation Minutes, Occupational Therapy: 40(evaluation ) 2017 OT Evaluation Code Rationale: ?? Diagnosis & Pertinent Co-Morbidities affecting Plan of Care: see PMHx ?? Occupational Profile & Client History: Brief Expanded Extensive x ?? Assessment of Occupational Performance: 1-3 performance deficits 3-5 performance deficits x 5 + performance deficits ?? Clinical Decision Making: Low Moderate High x Clinical decision making of moderate complexity using standardized patient assessment instrument and measurable assessment of functional outcome. Pager: [phone] DEX MEDELLIN OT 02/26/2019 Occupational Therapy Rehabilitation Department * Plan of Care - Raj Saldana RN - 02/26/2019 5:10 AM EST Problem: Patient Care Overview Goal: Plan of Care Review Outcome: Ongoing (Interventions Implemented as Appropriate) 02/25/19 1756 02/25/19 1925 Coping/Psychosocial Plan Of Care Reviewed With -- patient Plan of Care Review Progress progress toward functional goals as expected -- OUTCOME EVALUATION NOTE: OUTCOME SUMMARY: Patient rested between care this shift. No acute events overnight. A&O x4. Bradycardic intermittently; otherwise vital signs stable. CPAP worn throughout the night for MANISH. Pain controlled with PRN pain medications (see MAR). Dressing to R groin c/d/i. Wound vac continues to run at 125 mmHg with minimal drainage. +CMS. Mazariegos remains in place and is draining adequately (see I&O flowsheet). Blood glucose monitored q4. Continues to utilize own insulin pump and dose herself accordingly (seeflowsheet for details). Pump changed this shift per patient. Frequent repositioning encouraged while in bed. Will continue to monitor. ?? PLAN MOVING FORWARD: ?? Pain control, mobilization, mazariegos care, q4 blood glucose checks, PT/OT, d/c planning ?? INDIVIDUALIZED FALL PREVENTION INTERVENTIONS: ?? Patient-specific fall risk factors per assessment: [current deficits]: Recent surgery, generalized weakness, multiple lines/drains, hospital environment ?? Assistance [level of assistance required for transfers and ambulation]: 1 assist; not OOB this shift ?? Supervision [direct monitoring required during toileting and ADLs]: Hands on as needed during ADLs ?? Surveillance [continuous indirect monitoring]: VINCE Ma at bedside, hourly rounding, patient instructed to ring for nurse assist via call leggett Patient-specific fall prevention interventions for sensory deficits provided, if applicable: [X] N/A CPG GOAL OUTCOME EVALUATION: Goal: Individualization & Mutuality Outcome: Ongoing (Interventions Implemented as Appropriate) 02/21/19 1544 02/23/19 1634 02/24/19 1405 Individualization Patient Specific Goals -- fast recovery -- Patient Specific Interventions -- -- wound vac Mutuality/Individual Preferences What Anxieties, Fears or Concerns Do You Have About Your Health or Care? -- -- -- What Questions Do You Have About Your Health or Care? what are they planning on doing? -- -- What Information Would Help Us Give You More Personalized Care? none -- -- 02/25/19 1755 Individualization Patient Specific Goals -- Patient Specific Interventions -- Mutuality/Individual Preferences What Anxieties, Fears or Concerns Do You Have About Your Health or Care? I'm worried I won't be able to go home Monday if I can't get a home wound VAC What Questions Do You Have About Your Health or Care? -- What Information Would Help Us Give You More Personalized Care? -- Goal: Fall Prevention-Safe Patient Handling Outcome: Ongoing (Interventions Implemented as Appropriate) 02/25/19 0353 02/25/19 1100 02/25/19 1925 Restraint Interventions Safety Promotion/Fall Prevention -- -- activity supervised;fall prevention program maintained;muscle strengthening facilitated;nonskid shoes/slippers when out of bed;safety round/check completed Activity Activity Type -- -- activity adjusted per tolerance Activity Assistance Provided -- -- assistance, stand-by Assistive Device Utilized -- none -- Positioning Body Position -- -- supine, head elevated Daily Care Interventions Self-Care Promotion independence encouraged -- -- Vazquez Fall Risk History of Falling -- -- 0 Secondary Diagnosis -- -- 15 Ambulatory Aids -- -- 0 Intravenous Therapy/Heparin/Saline Lock -- -- 20 Gait/Transferring -- -- 10 Mental Status -- -- 0 Score -- -- 45 OTHER Vazquez Fall Risk -- -- High Goal: Infection Control Outcome: Ongoing (Interventions Implemented as Appropriate) 02/25/19 1925 Safety Interventions Isolation Precautions standard precautions maintained Infection Prevention rest/sleep promoted;single patient room provided Coping Strategies Supportive Measures active listening utilized;decision-making supported;goal setting facilitated;positive reinforcement provided;problem solving facilitated;relaxation techniques promoted;self-care encouraged;verbalization of feelings encouraged Goal: Discharge Needs Assessment Outcome: Ongoing (Interventions Implemented as Appropriate) 02/23/19 1634 02/24/19 1405 02/25/19 175 Discharge Needs Assessment Concerns To Be Addressed -- -- coping/stress concerns Readmission Within The Last 30 Days -- previous discharge plan unsuccessful -- Equipment Needed After Discharge -- -- other (see comments) (Wound VAC) Discharge Disposition still a patient -- -- Activity/Self Care Review of Systems Equipment Currently Used at Home none -- -- Current Health Anticipated Changes Related to Illness -- none -- Living Environment Transportation Available -- family or friend will provide -- Goal: Interdisciplinary Rounds/Family Conf Outcome: Ongoing (Interventions Implemented as Appropriate) 02/25/19 175 Interdisciplinary Rounds/Family Conf Participants geriatric case manager;physical therapy;physician;nursing Problem: Skin Integrity Impairment, Risk/Actual (Adult) Goal: Identify Related Risk Factors and Signs and Symptoms Related risk factors and signs and symptoms are identified upon initiation of Human Response Clinical Practice Guideline (CPG) Outcome: Ongoing (Interventions Implemented as Appropriate) 02/23/19 1634 02/25/19 0353 Skin Integrity Impairment, Risk/Actual Skin Integrity Impairment, Risk/Actual: Related Risk Factors -- surgery/procedure Signs and Symptoms (Skin Integrity Impairment) (incision/wound) -- Goal: Skin Integrity/Wound Healing Patient will demonstrate the desired outcomes by discharge/transition of care. Outcome: Ongoing (Interventions Implemented as Appropriate) 02/25/19 175 Skin Integrity Impairment, Risk/Actual (Adult) Skin Integrity/Wound Healing making progress toward outcome * Plan of Care - Lisbet Bailon RN - 02/25/2019 6:02 PM EST Problem: Patient Care Overview Goal: Plan of Care Review Outcome: Ongoing (Interventions Implemented as Appropriate) 02/25/19 0749 02/25/19 1756 Coping/Psychosocial Plan Of Care Reviewed With patient -- Plan of Care Review Progress -- progress toward functional goals as expected OUTCOME EVALUATION NOTE: OUTCOME SUMMARY: Pt returned from OR s/p washout AOx4, VSS, wound VAC running at 125 Wound site pink, black sponge inserted Mazariegos draining Pt denies pain at this time PLAN MOVING FORWARD: Washout Monday with hopeful discharge Coordinating home wound VAC INDIVIDUALIZED FALL PREVENTION INTERVENTIONS: Patient-specific fall risk factors per assessment: [current deficits]: Lines and drains, generalized weakness Assistance [level of assistance required for transfers and ambulation]: standby Supervision [direct monitoring required during toileting and ADLs]: mazariegos Surveillance [continuous indirect monitoring]: lizzie Patient-specific fall prevention interventions for sensory deficits provided, if applicable: [X] No CPG GOAL OUTCOME EVALUATION: * Op Note - Emeli Wall MD - 02/25/2019 12:28 PM EST [facility] [place] Operative Note Patient Name: Jennifer Branch : [id number] MR#: [id number] Case Date: 02/25/2019 Surgeon: Surgeon(s) and Role: * Kaity Fontaine MD - Primary * Emeli Wall MD - Resident Preoperative diagnosis: right groin wound infection Postoperative diagnosis: right groin wound infection Procedure: RIGHT groin debridement of subcutaneous tissue, partial closure of right groin wound andwound vac change (coders: not excisional) Anesthesia: General Estimated Blood Loss: * No values recorded between 02/25/2019 12:23 PM and 02/25/2019 12:28 PM * Specimens removed during surgery: None Drains: wound VAC Surgical Closure: wound VAC Disposition: awakened from anesthesia, extubated and taken to the recovery room in a stable condition, having suffered no apparent untoward event. Condition: doing well without problems HPI/Surgical Indications: 58 y.o.??female??with PMH DM, former smoker, PAD??who was found to have stenosis in her RLE proximal vein bypass.??02/04/19 she underwent right femoral endarterectomy, revision of proximal vein bypass, with bovine patch angioplasty,??Right profundaplasty with bovine patch angioplasty. She presented to vascular surgery clinic and was found to have a hematoma which was actively draining. Pt will require admission and OR for right groin washout and wound vac placement.??Was taken to the OR on 02/22 for debridement and vac placement. Today to undergo vac change under anesthesia Procedure Description: Jennifer Branch was identified in the hospital room. At that time the risksand benefits of right groin debridement and wound vac change were discussed. her questions were answered and informed consent was obtained. she was brought into the operating room and positioned supine on the operating table. Anesthesia was induced.The wound vac was taken down and 1 continuous piece of black sponge was removed from the right groin. her right groin was then prepped with betadine and draped in the usual sterile fashion. A full standard time out was performed and all were in favorof proceeding. We then turned our attention to the right groin. The wound was explored and then irrigated with normal saline. The wound was then debrided and small pieces of fascia and nonhealing tissue were debrided from the wound with Metzenbaum scissors. The wound was then partially closed at its deepest pointusing 2-0 vicryl suture. The wound was then irrigated with saline and packed with 1 piece of black sponge. The wound measurements were approximately 6cm x 6cm x 7.5cm. The wound and sponge were then dressed with wound vac dressings and set to 125mmHg continuous suction. The patient was then awoken from general anesthesia having suffered no untoward event. At case end,all instrument and sponge counts were correct. The attending of record, Dr. Fontaine, was scrubbed and present for the procedure. Emeli Wall MD 02/25/2019 Associated attestation - Kaity Fontaine MD - 03/04/2019 1:51 PM EST Attestation: Case Date: 02/27/2019 I was present and I participated during the entire procedure (does not need to include opening and closing). Kaity Fontaine MD 03/04/2019 * Plan of Care - Nancy Goldstein RN - 02/25/2019 4:16 AM EST Problem: Patient Care Overview Goal: Plan of Care Review Outcome: Ongoing (Interventions Implemented as Appropriate) 02/25/19352 Coping/Psychosocial Plan Of Care Reviewed With patient Plan of Care Review Progress progress toward functional goals as expected Goal: Individualization & Mutuality Outcome: Ongoing (Interventions Implemented as Appropriate) 02/25/19352 Mutuality/Individual Preferences What Anxieties, Fears or Concerns Do You Have About Your Health or Care? I'm afraid that my wound won't be healed enough when they clean it Goal: Fall Prevention-Safe Patient Handling Outcome: Ongoing (Interventions Implemented as Appropriate) 02/25/19352 Restraint Interventions Safety Promotion/Fall Prevention activity supervised;fall prevention program maintained;nonskid shoes/slippers when out of bed;safety round/check completed Activity Activity Type activity adjusted per tolerance Activity Assistance Provided assistance, stand-by Positioning Body Position supine, head elevated Daily Care Interventions Self-Care Promotion independence encouraged Vazquez Fall Risk History of Falling 0 Secondary Diagnosis 15 Ambulatory Aids 0 Intravenous Therapy/Heparin/Saline Lock 20 Gait/Transferring 10 Mental Status 0 Score 45 OTHER Vazquez Fall Risk High Goal: Infection Control Outcome: Ongoing (Interventions Implemented as Appropriate) 02/25/19352 Safety Interventions Isolation Precautions standard precautions maintained Infection Prevention rest/sleep promoted;single patient room provided Coping Strategies Supportive Measures active listening utilized;positive reinforcement provided;self-care encouraged;verbalization of feelings encouraged Goal: Discharge Needs Assessment Outcome: Ongoing (Interventions Implemented as Appropriate) 02/25/19352 Discharge Needs Assessment Concerns To Be Addressed no discharge needs identified Goal: Interdisciplinary Rounds/Family Conf Outcome: Ongoing (Interventions Implemented as Appropriate) 02/25/19352 Interdisciplinary Rounds/Family Conf Participants nursing;patient Problem: Skin Integrity Impairment, Risk/Actual (Adult) Intervention: Promote/Optimize Nutrition 02/25/19352 Nutrition Interventions Oral Nutrition Promotion rest periods promoted;safe use of adaptive equipment encouraged Intervention: Prevent/Manage Excess Moisture 02/24/19211102/25/19352 Hygiene Care Perineal Care catheter care provided;perianal area cleansed -- Bathing/Skin Care -- patient refused (she washed up in the morning) Skin Interventions Skin Protection -- adhesive use limited;[id number] areas padded;transparent dressing maintained;tubing/devices free from skin contact Intervention: Prevent/Minimize Sheer/Friction Injuries 02/25/19352 Positioning Positioning/Transfer Devices pillows;in use Skin Interventions Pressure Reduction Devices pressure-redistributing mattress utilized Pressure Reduction Techniques frequent weight shift encouraged OUTCOME EVALUATION NOTE: OUTCOME SUMMARY: Patient A/Ox4, VSS. Pain is well controlled, 0-3/10 all shift. Wound vac site is c/d/i. No s/s of infection at incision site. Patient continues to have +1 pulses in popliteal and pedal. Patient is independent with glucose control, nursing went in to check blood glucose and informed patient if insulin bolus was needed (see doc flowsheets). Patient is anxious about her debridement tomorrow afraid that it won't be healed enough to be discharged. Patient requires stand-by assist with activities. Patient has been NPO since midnight. Will continue to treat and monitor. PLAN MOVING FORWARD: Increasing activity tolerance Preparing for debridement Emotional support INDIVIDUALIZED FALL PREVENTION INTERVENTIONS: Patient-specific fall risk factors per assessment: [current deficits]: Increased pain with movement Assistance [level of assistance required for transfers and ambulation]: Stand-by assist Supervision [direct monitoring required during toileting and ADLs]: Eyes on when OOB Surveillance [continuous indirect monitoring]: Masimo, safety checks completed Patient-specific fall prevention interventions for sensory deficits provided, if applicable: [X] No CPG GOAL OUTCOME EVALUATION: Goal: Identify Related Risk Factors and Signs and Symptoms Related risk factors and signs and symptoms are identified upon initiation of Human Response Clinical Practice Guideline (CPG) Outcome: Ongoing (Interventions Implemented as Appropriate) 02/25/19352 Skin Integrity Impairment, Risk/Actual Skin Integrity Impairment, Risk/Actual: Related Risk Factors surgery/procedure Goal: Skin Integrity/Wound Healing Patient will demonstrate the desired outcomes by discharge/transition of care. Outcome: Ongoing (Interventions Implemented as Appropriate) 02/25/19 0353 Skin Integrity Impairment, Risk/Actual (Adult) Skin Integrity/Wound Healing making progress toward outcome * Plan of Care - Khadijah Riley RN - 02/24/2019 2:22 PM EST Problem: Patient Care Overview Goal: Plan of Care Review Outcome: Ongoing (Interventions Implemented as Appropriate) 02/23/19 1634 02/24/19 1405 Coping/Psychosocial Plan Of Care Reviewed With -- daughter;patient Plan of Care Review Progress progress toward functional goals as expected -- OUTCOME EVALUATION NOTE: OUTCOME SUMMARY: Patient alert and oriented; VSs stable. Pt checking blood sugar frequently; values have ranged from79 to over 300. Patient managing insulin. Pain well controlled with PRN tylenol. Wound vac in place, collecting scant amounts of drainage at -[address] mmHg[address] in [address] collecting adequate amounts of CYU. Patient up with standby assist. Pt resting between care; will continue to monitor. PLAN MOVING FORWARD: Continue to monitor pain, encourage ambulation, NPO @ [place] for OR tomorrow INDIVIDUALIZED FALL PREVENTION INTERVENTIONS: Patient-specific fall risk factors per assessment: [current deficits]: surgery, wound vac, mazariegos Assistance [level of assistance required for transfers and ambulation]: SBA Supervision [direct monitoring required during toileting and ADLs]: independent Surveillance [continuous indirect monitoring]: Masimo, purposeful rounding, bedside NKE, safety checks Patient-specific fall prevention interventions for sensory deficits provided, if applicable: CPG GOAL OUTCOME EVALUATION: Goal: Individualization & Mutuality Outcome: Ongoing (Interventions Implemented as Appropriate) 02/24/19 1405 Individualization Patient Specific Interventions wound vac Goal: Fall Prevention-Safe Patient Handling Outcome: Ongoing (Interventions Implemented as Appropriate) 02/24/19 0827 02/24/19 1405 Restraint Interventions Safety Promotion/Fall Prevention activity supervised;fall prevention program maintained;nonskid shoes/slippers when out of bed;safety round/check completed -- Activity Activity Type activity adjusted per tolerance;ambulated to bathroom -- Activity Assistance Provided -- assistance, stand-by Assistive Device Utilized -- none Positioning Body Position independent -- Daily Care Interventions Self-Care Promotion independence encouraged;BADL personal objects within reach;safe use of adaptiveequipment encouraged -- Vazquez Fall Risk History of Falling 0 -- Secondary Diagnosis 15 -- Ambulatory Aids 0 -- Intravenous Therapy/Heparin/Saline Lock 20 -- Gait/Transferring 10 -- Mental Status 0 -- Score 45 -- OTHER Vazquez Fall Risk High -- Goal: Infection Control Outcome: Ongoing (Interventions Implemented as Appropriate) 02/24/19 0827 Safety Interventions Isolation Precautions standard precautions maintained Infection Prevention barrier precautions utilized;environmental surveillance performed;rest/sleep promoted Coping Strategies Supportive Measures active listening utilized;goal setting facilitated;positive reinforcement provided;verbalization of feelings encouraged Goal: Discharge Needs Assessment Outcome: Ongoing (Interventions Implemented as Appropriate) 02/23/19 1634 02/24/19 1405 Discharge Needs Assessment Concerns To Be Addressed no discharge needs identified -- Readmission Within The Last 30 Days -- previous discharge plan unsuccessful Equipment Needed After Discharge -- other (see comments) (wound vac) Discharge Disposition still a patient -- Activity/Self Care Review of Systems Equipment Currently Used at Home none -- Current Health Anticipated Changes Related to Illness -- none Living Environment Transportation Available -- family or friend will provide Goal: Interdisciplinary Rounds/Family Conf Outcome: Ongoing (Interventions Implemented as Appropriate) 02/24/19 1405 Interdisciplinary Rounds/Family Conf Participants patient;nursing;family Problem: Skin Integrity Impairment, Risk/Actual (Adult) Goal: Identify Related Risk Factors and Signs and Symptoms Related risk factors and signs and symptoms are identified upon initiation of Human Response Clinical Practice Guideline (CPG) Outcome: Ongoing (Interventions Implemented as Appropriate) 02/23/19 1634 Skin Integrity Impairment, Risk/Actual Skin Integrity Impairment, Risk/Actual: Related Risk Factors surgery/procedure;infection/disease process Signs and Symptoms (Skin Integrity Impairment) (incision/wound) Goal: Skin Integrity/Wound Healing Patient will demonstrate the desired outcomes by discharge/transition of care. Outcome: Ongoing (Interventions Implemented as Appropriate) 02/23/19 1634 Skin Integrity Impairment, Risk/Actual (Adult) Skin Integrity/Wound Healing making progress toward outcome * Plan of Care - Raj Saldana RN - 02/24/2019 4:45 AM EST Problem: Patient Care Overview Goal: Plan of Care Review Outcome: Ongoing (Interventions Implemented as Appropriate) 02/23/19 1634 02/23/19 1930 Coping/Psychosocial Plan Of Care Reviewed With -- patient Plan of Care Review Progress progress toward functional goals as expected -- OUTCOME EVALUATION NOTE: OUTCOME SUMMARY: Patient rested between care this shift. A&O x4. Bradycardic intermittently; otherwise vital signs stable. CPAP worn throughout the night for MANISH. Pain controlled with PRN pain medications (see MAR). Dressing to R groin c/d/i. Wound vac continues to run at 125 mmHG with minimal drainage. +CMS. Mazariegos remains in place and is draining adequately (see I&O flowsheet). Blood glucose monitored q4. Continues to utilize own insulin pump and dose herself accordingly (see flowsheet for details). Had one high blood sugar reading of 267. MD notified; no new orders at this time. Frequent repositioning encouraged while in bed. Plan for NPO at 0000 tonight. Will continue to monitor. PLAN MOVING FORWARD: Pain control, mobilization, mazariegos care, NPO at 0000, PT/OT, d/c planning INDIVIDUALIZED FALL PREVENTION INTERVENTIONS: Patient-specific fall risk factors per assessment: [current deficits]: Recent surgery, generalized weakness, multiple lines/drains, hospital environment Assistance [level of assistance required for transfers and ambulation]: 1 assist; not OOB this shift Supervision [direct monitoring required during toileting and ADLs]: Hands on as needed during ADLs Surveillance [continuous indirect monitoring]: VINCE Ma at bedside, hourly rounding, patient instructed to ring for nurse assist via call leggett Patient-specific fall prevention interventions for sensory deficits provided, if applicable: [X] N/A CPG GOAL OUTCOME EVALUATION: Goal: Individualization & Mutuality Outcome: Ongoing (Interventions Implemented as Appropriate) 02/21/19 1544 02/23/19 1634 Individualization Patient Specific Goals -- fast recovery Patient Specific Interventions -- good nutrition, increased water intake Mutuality/Individual Preferences What Anxieties, Fears or Concerns Do You Have About Your Health or Care? afraid im not going to get better -- What Questions Do You Have About Your Health or Care? what are they planning on doing? -- What Information Would Help Us Give You More Personalized Care? none -- Goal: Fall Prevention-Safe Patient Handling Outcome: Ongoing (Interventions Implemented as Appropriate) 02/22/19212802/23/191929 Restraint Interventions Safety Promotion/Fall Prevention -- activity supervised;fall prevention program maintained;muscle strengthening facilitated;nonskid shoes/slippers when out of bed;safety round/check completed Activity Activity Type -- activity adjusted per tolerance Activity Assistance Provided -- assistance, 1 person Assistive Device Utilized -- front-wheel walker Positioning Body Position -- supine, head elevated Daily Care Interventions Self-Care Promotion independence encouraged -- Vazquez Fall Risk History of Falling -- 0 Secondary Diagnosis -- 15 Ambulatory Aids -- 15 Intravenous Therapy/Heparin/Saline Lock -- 20 Gait/Transferring -- 10 Mental Status -- 0 Score -- 60 OTHER Vazquez Fall Risk -- High Goal: Infection Control Outcome: Ongoing (Interventions Implemented as Appropriate) 02/23/191929 Safety Interventions Isolation Precautions standard precautions maintained Infection Prevention rest/sleep promoted Coping Strategies Supportive Measures active listening utilized;decision-making supported;goal setting facilitated;positive reinforcement provided;problem solving facilitated;relaxation techniques promoted;self-care encouraged;verbalization of feelings encouraged Goal: Discharge Needs Assessment Outcome: Ongoing (Interventions Implemented as Appropriate) 02/23/19 1634 Discharge Needs Assessment Concerns To Be Addressed no discharge needs identified Readmission Within The Last 30 Days no previous admission in last 30 days Equipment Needed After Discharge none Discharge Disposition still a patient Activity/Self Care Review of Systems Equipment Currently Used at Home none Goal: Interdisciplinary Rounds/Family Conf Outcome: Ongoing (Interventions Implemented as Appropriate) 02/23/19 1634 Interdisciplinary Rounds/Family Conf Participants patient;nursing Problem: Skin Integrity Impairment, Risk/Actual (Adult) Goal: Identify Related Risk Factors and Signs and Symptoms Related risk factors and signs and symptoms are identified upon initiation of Human Response Clinical Practice Guideline (CPG) Outcome: Ongoing (Interventions Implemented as Appropriate) 02/23/19 1634 Skin Integrity Impairment, Risk/Actual Skin Integrity Impairment, Risk/Actual: Related Risk Factors surgery/procedure;infection/disease process Signs and Symptoms (Skin Integrity Impairment) (incision/wound) Goal: Skin Integrity/Wound Healing Patient will demonstrate the desired outcomes by discharge/transition of care. Outcome: Ongoing (Interventions Implemented as Appropriate) 02/23/19 1634 Skin Integrity Impairment, Risk/Actual (Adult) Skin Integrity/Wound Healing making progress toward outcome * Plan of Care - Vinay Celeste RN - 02/23/2019 4:47 PM EST Problem: Patient Care Overview Goal: Plan of Care Review Outcome: Ongoing (Interventions Implemented as Appropriate) 02/23/19 1634 Coping/Psychosocial Plan Of Care Reviewed With patient Plan of Care Review Progress progress toward functional goals as expected OUTCOME EVALUATION NOTE: OUTCOME SUMMARY: Pt OOB to chair today. Some dizziness upon first attempt top stand. Minimal/scant drainage from wound vac despite continued 125 pressure setting. Canister replaced per team recommendation. Tegaderm to R groin CDI. Some pink coloring and scant yellow drainage noted to distal aspect of incision outside wound vac along incision. Pt educated on benefits of balanced diet and fluid intake on wound healing. Mazariegos draining adequately. Significant other in and supportive of pt. Pain adequately controlled with current pain meds. PLAN MOVING FORWARD: VTE Prevention Adequate Nutrition NV checks INDIVIDUALIZED FALL PREVENTION INTERVENTIONS: Patient-specific fall risk factors per assessment: [current deficits]: IV sites, wound vac, mazariegos Assistance [level of assistance required for transfers and ambulation]: Stand by Supervision [direct monitoring required during toileting and ADLs]: Mazariegos, minimal assit Surveillance [facility]continuous indirect monitoring[facility] Patient-specific fall prevention interventions for sensory deficits provided, if applicable: [X] N/A CPG GOAL OUTCOME EVALUATION: Goal: Individualization & Mutuality Outcome: Ongoing (Interventions Implemented as Appropriate) 02/23/19 1634 Individualization Patient Specific Goals fast recovery Patient Specific Interventions good nutrition, increased water intake Goal: Fall Prevention-Safe Patient Handling Outcome: Ongoing (Interventions Implemented as Appropriate) 02/22/19212802/23/19 0740 Restraint Interventions Safety Promotion/Fall Prevention -- safety round/check completed;fall prevention program maintained Activity Activity Type -- bedrest Activity Assistance Provided -- independent Positioning Body Position -- supine, head elevated Daily Care Interventions Self-Care Promotion independence encouraged -- Vazquez Fall Risk History of Falling -- 0 Secondary Diagnosis -- 15 Ambulatory Aids -- 0 Intravenous Therapy/Heparin/Saline Lock -- 20 Gait/Transferring -- 10 Mental Status -- 0 Score -- 45 OTHER Vazquez Fall Risk -- High Goal: Infection Control Outcome: Ongoing (Interventions Implemented as Appropriate) 02/23/19 0740 Safety Interventions Isolation Precautions standard precautions maintained Infection Prevention environmental surveillance performed;rest/sleep promoted Coping Strategies Supportive Measures active listening utilized;self-care encouraged;verbalization of feelings encouraged Goal: Discharge Needs Assessment Outcome: Ongoing (Interventions Implemented as Appropriate) 02/23/19 1634 Discharge Needs Assessment Concerns To Be Addressed no discharge needs identified Readmission Within The Last 30 Days no previous admission in last 30 days Equipment Needed After Discharge none Discharge Disposition still a patient Activity/Self Care Review of Systems Equipment Currently Used at Home none Goal: Interdisciplinary Rounds/Family Conf Outcome: Ongoing (Interventions Implemented as Appropriate) 02/23/19 1634 Interdisciplinary Rounds/Family Conf Participants patient;nursing Problem: Skin Integrity Impairment, Risk/Actual (Adult) Goal: Identify Related Risk Factors and Signs and Symptoms Related risk factors and signs and symptoms are identified upon initiation of Human Response Clinical Practice Guideline (CPG) Outcome: Ongoing (Interventions Implemented as Appropriate) 02/23/19 1634 Skin Integrity Impairment, Risk/Actual Skin Integrity Impairment, Risk/Actual: Related Risk Factors surgery/procedure;infection/disease process Signs and Symptoms (Skin Integrity Impairment) (incision/wound) Goal: Skin Integrity/Wound Healing Patient will demonstrate the desired outcomes by discharge/transition of care. Outcome: Ongoing (Interventions Implemented as Appropriate) 02/23/19 1634 Skin Integrity Impairment, Risk/Actual (Adult) Skin Integrity/Wound Healing making progress toward outcome * Plan of Care - Nancy Goldstein RN - 02/23/2019 4:24 AM EST Problem: Skin Integrity Impairment, Risk/Actual (Adult) Intervention: Prevent/Minimize Sheer/Friction Injuries 02/22/19 0522 Positioning Positioning/Transfer Devices pillows;in use Skin Interventions Pressure Reduction Devices pressure-redistributing mattress utilized Pressure Reduction Techniques frequent weight shift encouraged Comments: OUTCOME EVALUATION NOTE: OUTCOME SUMMARY: Patients VSS, A/Ox4. Blood glucose was monitored and maintained by patients own monitor and pump, see flow sheets. Last B, given 4 oz apple juice and corby crackers. Wound assessed, no s/s of infection. NPWT drain running at 125mmHg, scant sanguinous drainage. Patient maintained bedrest all shift, frequent repositioning encouraged. Mazariegos catheter in place, cleaned and drained per policy. Will continue to monitor and treat. PLAN MOVING FORWARD: The next step is to move patient off of bedrest INDIVIDUALIZED FALL PREVENTION INTERVENTIONS: Patient-specific fall risk factors per assessment: [current deficits]: Bed alarms are on and side rails are up Assistance [level of assistance required for transfers and ambulation]: N/A, bedrest Supervision [direct monitoring required during toileting and ADLs]: N/A, bedrest, mazariegos and patientis independent with other ADLs Surveillance [continuous indirect monitoring]: Safety checks completed, checks PRN Patient-specific fall prevention interventions for sensory deficits provided, if applicable: [X] No CPG GOAL OUTCOME EVALUATION: * Plan of Care - Vinay Celeste RN - 02/22/2019 7:21 PM EST Problem: Patient Care Overview Goal: Plan of Care Review Outcome: Ongoing (Interventions Implemented as Appropriate) 02/22/1950902/22/19 0830 Coping/Psychosocial Plan Of Care Reviewed With -- patient Plan of Care Review Progress progress toward functional goals as expected -- OUTCOME EVALUATION NOTE: OUTCOME SUMMARY: Pt NPO in morning for OR. BG low. paged. Oral glucose gel given. Bedrest maintained. Pt to OR this afternoon. Returned with wound vac set at 125. Order for 120. paged. NV checks benign. PLAN MOVING FORWARD: NV checks Monitor wound vac Monitor I/O INDIVIDUALIZED FALL PREVENTION INTERVENTIONS: Patient-specific fall risk factors per assessment: [current deficits]: IVs, wound vac, Assistance [level of assistance required for transfers and ambulation]: bedrest Supervision [direct monitoring required during toileting and ADLs]: 2 assist with bedan Surveillance [continuous indirect monitoring]: masimo Patient-specific fall prevention interventions for sensory deficits provided, if applicable: [X] N/A CPG GOAL OUTCOME EVALUATION: Goal: Fall Prevention-Safe Patient Handling Outcome: Ongoing (Interventions Implemented as Appropriate) 02/22/19 0510 02/22/19 0830 02/22/19 1632 Restraint Interventions Safety Promotion/Fall Prevention -- safety round/check completed -- Activity Activity Type -- bedrest -- Activity Assistance Provided -- independent -- Positioning Body Position -- -- supine, head elevated Daily Care Interventions Self-Care Promotion independence encouraged -- -- Vazquez Fall Risk History of Falling -- 0 -- Secondary Diagnosis -- 15 -- Ambulatory Aids -- 0 -- Intravenous Therapy/Heparin/Saline Lock -- 20 -- Gait/Transferring -- 0 -- Mental Status -- 0 -- Score -- 35 -- OTHER Vazquez Fall Risk -- Med -- Goal: Infection Control Outcome: Ongoing (Interventions Implemented as Appropriate) 02/22/19 0830 Safety Interventions Isolation Precautions standard precautions maintained Infection Prevention rest/sleep promoted Coping Strategies Supportive Measures active listening utilized;self-care encouraged;verbalization of feelings encouraged Goal: Discharge Needs Assessment Outcome: Ongoing (Interventions Implemented as Appropriate) 02/22/19 1915 Discharge Needs Assessment Discharge Disposition still a patient Goal: Interdisciplinary Rounds/Family Conf Outcome: Ongoing (Interventions Implemented as Appropriate) 02/21/19 1924 Interdisciplinary Rounds/Family Conf Participants nursing;patient Problem: Skin Integrity Impairment, Risk/Actual (Adult) Goal: Identify Related Risk Factors and Signs and Symptoms Related risk factors and signs and symptoms are identified upon initiation of Human Response Clinical Practice Guideline (CPG) Outcome: Ongoing (Interventions Implemented as Appropriate) 02/22/19 0520 Skin Integrity Impairment, Risk/Actual Skin Integrity Impairment, Risk/Actual: Related Risk Factors infection/disease process;surgery/procedure Signs and Symptoms (Skin Integrity Impairment) other (see comments) (redness around surgical incision) Goal: Skin Integrity/Wound Healing Patient will demonstrate the desired outcomes by discharge/transition of care. Outcome: Ongoing (Interventions Implemented as Appropriate) 02/22/19 0520 Skin Integrity Impairment, Risk/Actual (Adult) Skin Integrity/Wound Healing making progress toward outcome * Op Note - Kaity Fontiane MD - 02/22/2019 4:03 PM EST [facility] [place] Operative Note Patient Name: Jennifer Branch : [id number] MR#: [id number] Case Date: 02/22/19 Surgeon: Surgeon(s) and Role: * Kaity Fontaine MD - primary surgeon Preoperative diagnosis: right groin wound infection Postoperative diagnosis: right groin wound infection Procedure: right groin wound excisional debridement (7x 4 x 2cm) Wound vac placement Findings: open right groin wound with small areas of fibrinous exudate. No exposure of the femoral vessels. Anesthesia: General Estimated Blood Loss: none Specimens removed during surgery: none Drains: wound vac Surgical Closure: wound vac placed with one black sponge Disposition: awakened from anesthesia, extubated and taken to the recovery room in a stable condition, having suffered no apparent untoward event. Condition: doing well without problems HPI/Surgical Indications: 58yo female status post right groin hematoma evacuation. Now presents forwound washout and possible VAC dressing placement. Procedure Description: Patient was brought to the operating room and placed supine on the operatingroom table. After induction of general anesthesia, patient was prepped and draped in standard fashion. Following full timeout, right groin wound was sharply debridement and irrigated with copious amount of saline. VAC dressing was then applied using one black sponge. Patient tolerated the procedurewell without any complications. * Plan of Care - Nancy Goldstein RN - 02/22/2019 5:22 AM EST Problem: Skin Integrity Impairment, Risk/Actual (Adult) Intervention: Prevent/Minimize Sheer/Friction Injuries 02/22/19 0522 Positioning Positioning/Transfer Devices pillows;in use Skin Interventions Pressure Reduction Devices pressure-redistributing mattress utilized Pressure Reduction Techniques frequent weight shift encouraged Comments: OUTCOME EVALUATION NOTE: OUTCOME SUMMARY: Patients VSS, A/Ox4. Blood glucose was monitored and maintained by patients own monitor and pump, see flow sheets. Wound assessed, packing left in, but the rest of the dressing was changed. 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 Antibiotics given, see MAR. Patient maintained bedrest all shift, frequent repositioning encouraged. Patient was NPO at midnight. Mazariegos catheter in place, cleaned and drained per policy. Will continue to monitor and treat. PLAN MOVING FORWARD: Patient is scheduled for surgery this morning. INDIVIDUALIZED FALL PREVENTION INTERVENTIONS: Patient-specific fall risk factors per assessment: [current deficits]: Patient is on bedrest, however bed alarms are on and side rails are up Assistance [level of assistance required for transfers and ambulation]: N/A, bedrest Supervision [direct monitoring required during toileting and ADLs]: N/A, bedrest, mazariegos and patientis independent with other ADLs Surveillance [continuous indirect monitoring]: Safety checks completed, checks PRN Patient-specific fall prevention interventions for sensory deficits provided, if applicable: [X] No CPG GOAL OUTCOME EVALUATION: * Plan of Care - Vinay Celeste RN - 02/21/2019 7:28 PM EST Problem: Patient Care Overview Goal: Plan of Care Review Outcome: Ongoing (Interventions Implemented as Appropriate) 02/21/1922002/21/191923 Coping/Psychosocial Plan Of Care Reviewed With -- patient Plan of Care Review Progress progress toward functional goals as expected -- OUTCOME EVALUATION NOTE: OUTCOME SUMMARY: Pt pain adequately controlled with PRN tylenol. Bedrest maintained. Mazariegos placed. UA sent. Pt frustrated with communication of plan. MD aware and at bedside to discuss. NPO at midnight for OR tomorrow. IV abx continued. Home insulin pump in place. Pt dosing self. PLAN MOVING FORWARD: OR VTE prevention BG control Pain control Infection Prevention INDIVIDUALIZED FALL PREVENTION INTERVENTIONS: Patient-specific fall risk factors per assessment: [current deficits]: Masimo, IVs Assistance [level of assistance required for transfers and ambulation]: bedrest Supervision [direct monitoring required during toileting and ADLs]: 1 assist with ADLs Surveillance [continuous indirect monitoring]: Masmehrdad Patient-specific fall prevention interventions for sensory deficits provided, if applicable: [X] N/A CPG GOAL OUTCOME EVALUATION: Goal: Fall Prevention-Safe Patient Handling Outcome: Ongoing (Interventions Implemented as Appropriate) 02/21/19 0745 02/21/191923 Restraint Interventions Safety Promotion/Fall Prevention -- safety round/check completed Vazquez Fall Risk History of Falling 0 -- Secondary Diagnosis 15 -- Ambulatory Aids 0 -- Intravenous Therapy/Heparin/Saline Lock 20 -- Gait/Transferring 0 -- Mental Status 0 -- Score 35 -- OTHER Vazquez Fall Risk Med -- Positioning Body Position supine, head elevated -- Activity Activity Type bedrest -- Activity Assistance Provided other (see comments) (bedrest) -- Goal: Infection Control Outcome: Ongoing (Interventions Implemented as Appropriate) 02/21/19 0745 Safety Interventions Isolation Precautions standard precautions maintained Infection Prevention rest/sleep promoted;environmental surveillance performed Coping Strategies Supportive Measures active listening utilized;self-care encouraged;verbalization of feelings encouraged Goal: Discharge Needs Assessment Outcome: Ongoing (Interventions Implemented as Appropriate) 02/21/191923 Discharge Needs Assessment Concerns To Be Addressed no discharge needs identified Goal: Interdisciplinary Rounds/Family Conf Outcome: Ongoing (Interventions Implemented as Appropriate) 02/21/191923 Interdisciplinary Rounds/Family Conf Participants nursing;patient * Initial Assessments - Eva Gomes RN - 02/21/2019 9:31 AM EST Office of Care Management Assessment Medical record reviewed. Plan of care and patient status discussed with direct care RN and/or Care Team in multidisciplinary rounds. [age] y.o. female here for R groin hematoma washout and debridement . Present on Admission: ??? Groin hematoma Patient was at [facility] mid January. Patient receiving hospital care under IPI- SDP Admission (IP) status. Admission order reviewed. Primary Insurance on file: MEDICARE Secondary Insurance on file: [place] Primary care provider on file: Shirley Yu MD [phone] Advance Directive on file and Code Status: Received, Full Code Patient???s Functional Status: Bedrest Living Situation:boyfriend and she takes car of 2 gentlemen who she cares for [address] [place] [id number] Supports:boyfriend, daughter and and 3 grandsons Assessment: Patient with no apparent RNCM/SW needs at this time. No housing, transportation, insurance, resources concerns identified at this time. Supports in place to achieve a safe post-hospital transition. No identified barriers to accessing necessary care and/or follow-up after discharge. Plan: Patient to d/c to home vs snf via car or ambulance when medically ready. surgical site is right groin s/p hematoma removal. Waiting for report from vascular. agile java developer/[employer]er will continue to follow patient???s progress and remain available if situation changes for coordination of care, psychosocial support and/or discharge planning. Eva Gomes, RN Pager [phone] * Consult Note - Loretta Barkley RPH - 02/21/2019 9:27 AM EST Clinical Pharmacist Note - VancFD Jennifer Branch [id number] Jennifer Branch is a 58 y.o. female who is starting antibiotic therapy which includes intravenous vancomycin. Based on a review of the patient???s chart and/or conversation with the patient???s providers vancomycin is being used for treatment of R groin infection with a targeted goal of 10 - 15 mcg/mL. The following Pharmacokinetic data has been evaluated: Wt Readings from Last 1 Encounters: 02/20/19 95.7 kg (211 lb) Ht Readings from Last 1 Encounters: 02/20/19 170.2 cm (5' 7) Labs: Creatinine clearance: Creatinine (mg/dL) Date Value 02/21/2019 1.60 (H) Dosing recommendations: ??? Based on this information, vancomycin therapy will be initiated with a one- time dose of 2000 mgto be given now. ??? A full dosing regimen of 1250mg q24h is ordered to follow loading dose. We will continue to monitor the patient as long as she remains on vancomycin therapy. Thank you forthis consult and please page the care area pharmacist with any questions you may have. Alternately,during off-hours (9p-7a) you may call [phone] to contact a pharmacist. Loretta Barkley RPH * Plan of Care - Karen Tom RN - 02/21/2019 2:48 AM EST Problem: Patient Care Overview Goal: Plan of Care Review Outcome: Ongoing (Interventions Implemented as Appropriate) 02/21/19 0221 Coping/Psychosocial Plan Of Care Reviewed With patient Plan of Care Review Progress progress toward functional goals as expected OUTCOME EVALUATION NOTE: OUTCOME SUMMARY: Pt A+O, VSS. Rested between care overnight. Pain controlled with PRN tylenol. Dressing to R groin c/d/i. + pulses. Voiding via bedpan, high PVRs, straight cathed at 0330 for 800. D/t void [id number]. CPAP on for MANISH. Pt using own insulin pump and informing RN with blood sugars and when a bolus is given. No other acute events, will continue to monitor. 0330- Pt alerted RN that insulin pump alarmed pt that BS was 65, juice given per protocol. PLAN MOVING FORWARD: Pain control, NV checks, d/c planning INDIVIDUALIZED FALL PREVENTION INTERVENTIONS: Patient-specific fall risk factors per assessment: [current deficits]: Pain, bedrest, hospital environment, generalized weakness Assistance [level of assistance required for transfers and ambulation]: Bedrest Supervision [direct monitoring required during toileting and ADLs]: Hands on Surveillance [continuous indirect monitoring]: Masimo, purposeful rounding, bed alarm Patient-specific fall prevention interventions for sensory deficits provided, if applicable: [X] N/A CPG GOAL OUTCOME EVALUATION: * Op Note - Zenobia Quijano MD - 02/20/2019 5:31 PM EST [facility] [place] [facility] Operative Note Patient Name: Jennifer Branch : [id number] MR#: [id number] Case Date: 02/20/2019 Surgeon: Surgeon(s) and Role: * Kaity Fontaine MD - Primary * Zenobia Quijano MD - Fellow Preoperative diagnosis: right groin hematoma Postoperative diagnosis: right groin hematoma PROCEDURE: Right groin washout and debridement Procedure(s) (LRB): EXPLORATION GROIN W\DRAIN & DEBRIDE LYMPHOCELE (WRVU *) (Right) Anesthesia: General Estimated Blood Loss: 2cc Specimens removed during surgery: intraoperative cultures Drains: none Surgical Closure: Other Than Primary Closure - deep and superficial layers are left completely openduring original surgery Disposition: awakened from anesthesia, extubated and taken to the recovery room in a stable condition, having suffered no apparent untoward event. Condition: doing well without problems (Please see the Surgical Encounter Summary for any Implant and Specimen details pertinent to this patient.) HPI/Surgical Indications: Jennifer Branch is a 58 y.o. female with PMH DM, former smoker, PAD who was found to have stenosis in her RLE proximal vein bypass. 02/04/19 she underwent right femoral endarterectomy, revision of proximal vein bypass, with bovine patch angioplasty,??Right profundaplasty with bovine patch angioplasty. She presented to vascular surgery clinic and was found to have a hematoma which was actively draining. Pt will require admission and OR for right groin washout. Procedure Description: After informed consent was obtained the patient was brought back to the operating room and positioned supine on the OR table. General anesthesia was induced. The right groin was prepped and draped in the usual sterile fashion. A timeout was performed to correctly identify patient, laterality and intended procedure. The judd and suture were removed from the proximal two-thirds of the wound. The were murky appearing hematoma which was cultured. Clots were evacuated from the wound. The wound was then pulse irrigated with bacitracin solution, it was found to track laterally along the inguinal ligament. The wound was packed with betadine soaked kerlix. There were no intraoperative complications. All instrument and sponge counts were correct at the end of the case, and Dr. Fontaine was present for the critical portions of the case. The patient was takento the recovery room in stable condition. Infection Bundle used? [email or web address] Attestation: Case Date: 02/20/2019 Zenobia Quijano MD 02/20/2019 Associated attestation - Kaity Fontaine MD - 03/04/2019 1:28 PM EST Attestation: Case Date: 02/27/2019 I was present and I participated during the entire procedure (does not need to include opening and closing). Kaity Fontaine MD 03/04/2019 documented in this encounter Plan of Treatment Upcoming Encounters Date Type Department Care Team (Late st Contact Info) Description 12/19/2023 1:00 PM EDT Tech Visit Vascular [place] [phone] Marguerite Macias 12/19/2023 3:00 PM EDT Office [place] [phone] Gardenia Golden APRN [facility] [place] [address] 01/29/2024 1:[address] [place] [phone] César Escobar MD [facility] [place] [address] 01/29/2024 2:30 PM EDT Office Visit [place] [phone] César Escobar MD [facility] [place] [address] documented as of this encounter Procedures Procedure Name Priority Date/Time Associated Diagnosis Comments POCT GLUCOSE Routine 03/01/2019 11:31 AM EST POCT GLUCOSE Routine 03/01/2019 8:27 AM EST POCT GLUCOSE Routine 03/01/2019 4:04 AM EST BMP W/FASTING GLUCOSE Routine 03/01/2019 4:04 AM EST HEMOGRAM Routine 03/01/2019 4:04 AM EST DIFFERENTIAL, AUTOMATED Routine 03/01/20 4:04 AM EST HC VENIPUNCTURE Routine 03/01/2019 4:04 AM EST POCT GLUCOSE Routine 03/01/2019 12:12 AM EST POCT GLUCOSE Routine 02/28/2019 8:01 PM EST BMP W/FASTING GLUCOSE Routine 02/28/2019 3:06 AM EST HEMOGRAM Routine 02/28/2019 3:06 AM EST DIFFERENTIAL, AUTOMATED Routine 02/29/20 3:06 AM EST HC VENIPUNCTURE Routine 02/28/2019 3:06 AM EST Unlisted Px Abdomen Musculoskeletal System ([id number]) 02/27/2019 5:18 PM EST right groin wound infection Debridement, Skin, Sub-Q Tissue ([id number]) 02/27/2019 5:18 PM EST right groin wound infection BMP W/FASTING GLUCOSE Routine 02/27/2019 4:27 AM EST HEMOGRAM Routine 02/27/2019 4:27 AM EST DIFFERENTIAL, AUTOMATED Routine 02/28/20 4:27 AM EST HC CBC,PLT & AUTO DIFF Routine 9 4:27 AM EST BMP W/FASTING GLUCOSE Routine 02/26/2019 4:43 AM EST HEMOGRAM Routine 02/26/2019 4:43 AM EST DIFFERENTIAL, AUTOMATED Routine 02/27/20 4:43 AM EST HC CBC,PLT & AUTO DIFF Routine 9 4:43 AM EST MODIFIER WOUND VAC 02/25/2019 12 :23 PM EST right groin wound infection Debridement, Skin, Sub-Q Tissue ([id number]) 02/25/2019 12:23 PM EST right groin wound infection BMP W/FASTING GLUCOSE Routine 02/25/2019 3:34 AM EST HEMOGRAM Routine 02/25/2019 3:34 AM EST DIFFERENTIAL, AUTOMATED Routine 02/26/20 3:34 AM EST HC CBC,PLT & AUTO DIFF Routine 9 3:34 AM EST DEBRIDEMENT SKIN AND SUBCU, LOWER EXTREMITY Routine 02/24/2019 3:28 PM EST BMP W/FASTING GLUCOSE Routine 02/24/2019 3:52 AM EST HEMOGRAM Routine 02/24/2019 3:52 AM EST DIFFERENTIAL, AUTOMATED Routine 02/25/20 3:52 AM EST HC VENIPUNCTURE Routine 02/24/2019 3:52 AM EST POCT GLUCOSE Routine 02/23/2019 3:43 PM EST BMP W/FASTING GLUCOSE Routine 02/23/2019 3:22 AM EST HEMOGRAM Routine 02/23/2019 3:22 AM EST DIFFERENTIAL, AUTOMATED Routine 02/24/20 3:22 AM EST HC CBC,PLT & AUTO DIFF Routine 9 3:22 AM EST Debridement, Skin, Sub-Q Tissue ([id number]) 02/22/2019 3:49 PM EST Hematoma POCT GLUCOSE Routine 02/22/2019 8:57 AM EST BMP W/FASTING GLUCOSE Routine 02/22/2019 3:41 AM EST HEMOGRAM Routine 02/22/2019 3:41 AM EST DIFFERENTIAL, AUTOMATED Routine 02/23/20 3:41 AM EST HC CBC,PLT & AUTO DIFF Routine 9 3:41 AM EST URINALYSIS MICROSCOPIC EXAM Routine 02/21/2019 5:25 PM EST URINALYSIS WITH REFLEX CULTURE Routine 02/21/2019 5:25 PM EST BMP W/FASTING GLUCOSE Routine 02/21/2019 3:27 AM EST HEMOGRAM Routine 02/21/2019 3:27 AM EST DIFFERENTIAL, AUTOMATED Routine 11/14/20 19 3:27 AM EST HC CBC,PLT & AUTO DIFF Routine 9 3:27 AM EST BMP W/FASTING GLUCOSE STAT 02/20/2019 5:45 PM EST HEMOGRAM STAT 02/20/2019 5:45 PM EST DIFFERENTIAL, AUTOMATED STAT 02/21/20 19 5:45 PM EST HC CBC,PLT & AUTO DIFF STAT 9 5:45 PM EST ANAEROBIC CULTURE Routine 02/20/2019 5:4 2 PM EST HC WOUND/ABSCESS CX Routine 02/20/2019 5 :42 PM EST ABSCESS/WOUND ASPIRATE CULTURE Routine 02/20/2019 5:42 PM EST Unlisted Procedure Hemic Or Lymphatic System ([id number]) 02/20/2019 4:26 PM EST Hematoma EXPLORATION GROIN W\DRAIN & DEBRIDE LYMPHOCELE Routine 02/20/2019 1:34 PM EST Hematoma documented in this encounter Results * Arterial Duplex Leg, Unil (04/01/2019 1:05 PM EST) VB Text Report Department: Vascular Surgery Lab Patient: [id number] (JENNIFER BRANCH) CPT: 12524 ICD10: I73.9 Referring Physician: NATHALY VICTOR ?? Indications: s/p redo RIGHT proximal anastomosis femoral to AK popliteal BPG (02/04/2019), 6-week check; ? change patency ICD10 Diagnosis Code: I73.9 Findings: Right Fem-Pop AK SEGMENT ? [...] Right Outflow Artery (Graft) ? 179 ?0 ?? Interpretation: RIGHT: Patent common femoral to above knee popliteal artery bypass graft with no evidence of stenosis. No identifiable change when compared to the previous exam on 02/08/2019. Comment: ??The patient is being seen in clinic following her exam. Electronically Signed by: KAITY FONTAINE MD on 2019-04-01 02:18:35 PM VASCUBASE VB Text Report End of Report VASCUBASE 04/01/2019 1:05 PM EST Nathaly Victor BUS ATTENDANT VASCULAR ORDERABLE S VASCUBASE * SHEFALI, legs, multiple levels (04/01/2019 1:05 PM EST) VB Text Report Department: Vascular Surgery Lab Patient: [id number] (JENNIFER BRANCH) CPT: 03239 ICD10: I73.9 Referring Physician: NATHALY VICTOR ?? Indications: s/p RIGHT fem-AK pop proximal anastomosis redo on 02/04/2019, 6 week recheck; ? change SHEFALI Diabetes mellitus: Yes ICD10 Diagnosis Code: I73.9 Findings: Right ?Pressure (mm Hg) ?? SHEFALI ??Waveform ? TBI ?? Brachial Artery ?181 ? Dorsalis Pedis (Ankle) Artery ?180 ? 0.98 ??Bi-Triphasic ? Posterior Tibial (Ankle) Artery ??190 ? 1.04 ??Bi-Triphasic ? Great Toe ?113 ? 0.62 ?? Left ? Pressure (mm Hg) ?? SHEFALI ??Waveform ?TBI ?? Brachial Artery ?183 ? Dorsalis Pedis (Ankle) Artery ?102 ? 0.56 ??[place]-Biphasic ? Posterior Tibial (Ankle) Artery ??109 ? 0.60 ??[place]-Biphasic ? Great Toe ?65 ? 0.36 ?? Interpretation: RIGHT: No significant lower extremity arterial occlusive disease to the distal calf level. Toe-brachial index substantially lower than ankle-brachial index indicates presence of mild arterial occlusive disease in the distal calf and foot. No identifiable change when compared to the previous exam on 02/08/2019. LEFT: Moderate lower extremity arterial occlusive disease. No identifiable change when compared to the previous exam on 02/08/2019. Previous ABIs with change from previous value: [...] 0.90(-.04) 0.56(-.07) ---- ??1.03(+.14) 0.99(+.09) 0.58(+.02) ---- Current ? 0.98(-.05) 1.04(+.05) 0.62(+.04) ---- Date ?LEFT DP ?LEFT PT ?LT [...] 0.62(+.03) 0.37(-.03) ---- ??0.53(-.02) 0.54(-.08) 0.36(-.01) ---- Current ? 0.56(+.03) 0.60(+.06) 0.36( .00) ---- Comment: ??The patient is being seen in clinic following her exam. Electronically Signed by: KAITY FONTAINE MD on 2019-04-01 02:19:02 PM VASCUBASE VB Text Report End of Report VASCUBASE 04/01/2019 1:05 PM EST Nathaly Victor APRN VASCULAR ORDERABLE S Performing Organization Address City/[facility]/ZIP Co de Phone Number VASCUBASE * (ABNORMAL) POCT Glucose (03/01/2019 11:31 AM EST) Glucose, POC 304(H) 65 - 199 mg/dL [facility] Comment: Supplemental ranges: <140 mg/dL before meals <180 mg/dL all other times of the day Blood specimen (specimen) 03/01/2019 11:31 AM EST 03/01/2019 11:31 AM EST Kaity Fontaine MD POINT OF CARE TEST O JODIE Performing Organization Address [facility] de Phone Number [facility] [place] [address] * POCT Glucose (03/01/2019 8:27 AM EST) Glucose, POC 167 65 - 199 mg/dL [facility] Comment: Supplemental ranges: <140 mg/dL before meals <180 mg/dL all other times of the day Blood specimen (specimen) 03/01/2019 8:27 AM EST 03/01/2019 8:27 AM EST Kaity Fontaine MD POINT OF CARE TEST O ALEXERAJOHN Performing Organization Address [facility] Co de Phone Number [facility] [place] [address] * POCT Glucose (03/01/2019 4:04 AM EST) Glucose, POC 145 65 - 199 mg/dL [facility] Comment: Supplemental ranges: <140 mg/dL before meals <180 mg/dL all other times of the day Blood specimen (specimen) 03/01/2019 4:04 AM EST 03/01/2019 4:04 AM EST Kaity Fontaine MD POINT OF CARE TEST O RDERABLES Performing Organization Address City/[facility]/ZIP Co de Phone Number [facility] [place] [address] * Differential, Automated (03/01/2019 4:04 AM EST) Neutrophil % 55.7 % [facility] Neutrophil Absolute 4.99 1.70 - 6.10 x10(3)/[facility] LAB[facility] Lymph % 32.0 % [facility] Lymphocytes Abs 2.9 0.9 - 3.2 x10(3)/[facility] LAB[facility]ORY Monocyte % 7.3 % [facility] Monocyte Abs 0.6 0.3 - 0.9 x10(3)/[facility] Eos % 4.1 % [facility] [place] [place] Eosinophils Abs 0.4 0.0 - 0.4 x10(3)/[facility] LABORATORY Basophil % 0.7 % [facility] Baso Absolute 0.1 0.0 - 0.1 x10(3)/[facility] LABORATORY Immature Gran % 0.20 % [facility] Comment: Immature granulocytes(IG's)percentage and absolute count will include metamyelocytes, myelocytes, and promyelocytes. Blood smears from CBCs yielding IG's will be scanned manually for concordance. If this scan disagrees with the automated IG or if promyelocytes are noted, a manual differential will be performed. Immature Gran Absolute 0.02 0.00 - 0.04 x10(3)/[facility] LAB[facility] Blood specimen (specimen) 03/01/2019 4:04 AM EST 03/01/2019 4:19 AM EST Narrative Resulting Agency Comment Spec In Lab Emeli Wall MD HEMATOLOGY ORDERAB LES Performing Organization Address City/[facility]/[place] [address] * (ABNORMAL) Hemogram (03/01/2019 4:04 AM EST) White Blood Cell 9.0 4.0 - 9.5 x10(3)/[facility] LABORAT[facility] Red Blood Cell 3.48(L) 4.00 - 5.21 x10(6)/ L [facility] Hemoglobin 10.1(L) 11.7 - 15.5 gm/dL [facility] Hematocrit 33.1(L) 35.7 - 45.8 % [facility] Mean Cell Volume 95.1(H) 82.6 - 94.4 fL [facility] Mean Cell Hemoglobin 29.0 27.1 - 32.0 pg [facility] Mean Cell Hemoglobin Concentration 30.5(L) 31.7 - 35.0 gm/dL [facility] Platelet 276 145 - 357 x10(3)/[facility] LABORATORY RDW Standard Deviation 47.8(H) 37.0 - 46.0 [facility]ORY RDW coefficient of variation 13.6 11.5 - 14.1 % [facility] Mean Platelet Volume 10.5 7.6 - 12.9 fL [facility] NRBC% auto 0.0 % [facility] NRBC Absolute 0.000 0.000 - 0.000 x10(3)/[facility] Blood specimen (specimen) 03/01/2019 4:04 AM EST 03/01/2019 4:19 AM EST Narrative Resulting Agency Comment Spec In Lab Emeli Wall MD HEMATOLOGY ORDERAB LES [facility] [place] [address] * (ABNORMAL) BMP w/fasting Glucose (03/01/2019 4:04 AM EST) Glucose Fasting 145(H) 65 - 99 mg/dL [facility] Comment: ?Fasting* Glucose Interpretive Criteria Normal ?65-99 mg/dL Impaired Fasting glucose ?100-125 mg/dL Consistent with Diabetes Mellitus ? >or= 126 mg/dL *Fasting is defined as no caloric intake for at least 8 hours In the absence of unequivocal hyperglycemia a plasma glucose value of >or= 126 mg/dL should be repeated on a subsequent day. Diagnosis and Classification of Diabetes Mellitus, Position Statement from the [place] [employer]. ??Diabetes Care, Volume 33, Supplement 1, Apr 2009 Blood Urea Nitrogen 38(H) 8 - 18 mg/dL [facility] Creatinine 1.83(H) 0.70 - 1.20 mg/dL [facility] Sodium 140 135 - 145 mmol/L [facility] Potassium 4.8 3.5 - 5.0 mmol/L [facility] Comment: Please note: ??Patients with WBC >100,000 may have falsely elevated Potassium levels. ??For accurate Potassium quantification in these patients send serum separator tube (gold top) for subsequent determinations. ??Contact the Clinical Chemistry Laboratory if there are any questions. Chloride 104 98 - 107 mmol/L [facility] Carbon Dioxide 24 22 - 31 mmol/L [facility] Anion Gap 12 5 - 15 mmol/L [facility] Calcium 9.1 8.5 - 10.5 mg/dL [facility] Est Glomerular Filtration Rate 29(L) >=60 mL/min/1. 73 m?? [facility] Comment: The eGFR was calculated using the CKD-EPI equation. As with all creatinine based estimates of kidney function, eGFR values calculated with the CKD-EPI equation are not accurate in patients with acute kidney failure, extremes of body mass or the acutely ill. http://[employer]/DHMCnkf eGFR 34(L) >=60 mL/min/1. 73 m?? [facility] Comment: The eGFR was calculated using the CKD-EPI equation. As with all creatinine based estimates of kidney function, eGFR values calculated with the CKD-EPI equation are not accurate in patients with acute kidney failure, extremes of body mass or the acutely ill. http://[employer]/DHMCnkf Blood specimen (specimen) 03/01/2019 4:04 AM EST 03/01/2019 4:19 AM EST Narrative Resulting Agency Comment Spec In Lab Kaity Fontaine MD CHEMISTRY ORDERABLES Performing Organization Address City/[facility]/ZIP Co de Phone Number [facility] [place] [address] * POCT Glucose (03/01/2019 12:12 AM EST) Glucose, POC 132 65 - 199 mg/dL [facility] Comment: Supplemental ranges: <140 mg/dL before meals <180 mg/dL all other times of the day Blood specimen (specimen) 03/01/2019 12:12 AM EST 03/01/2019 12:12 AM EST Kaity Fontaine MD POINT OF CARE TEST O RDERABLES Performing Organization Address [facility] Co de Phone Number [facility] [place] [address] * POCT Glucose (02/28/2019 8:01 PM EST) Glucose, POC 152 65 - 199 mg/dL [facility] Comment: Supplemental ranges: <140 mg/dL before meals <180 mg/dL all other times of the day Blood specimen (specimen) 02/28/2019 8:01 PM EST 02/28/2019 8:01 PM EST Kaity Fontaine MD POINT OF CARE TEST O RDERABLES Performing Organization Address [facility] Co de Phone Number [facility] [place] [address] * Differential, Automated (02/28/2019 3:06 AM EST) Neutrophil % 51.2 % [facility] Neutrophil Absolute 3.90 1.70 - 6.10 x10(3)/[facility] LAB[facility] Lymph % 37.0 % [facility] Lymphocytes Abs 2.8 0.9 - 3.2 x10(3)/[facility] LAB[facility] Monocyte % 7.4 % [facility] Monocyte Abs 0.6 0.3 - 0.9 x10(3)/[facility] Eos % 3.3 % [facility] [place] Eosinophils Abs 0.2 0.0 - 0.4 x10(3)/[facility] Basophil % 0.8 % [facility] Baso Absolute 0.1 0.0 - 0.1 x10(3)/[facility] Immature Gran % 0.30 % [facility] Comment: Immature granulocytes(IG's)percentage and absolute count will include metamyelocytes, myelocytes, and promyelocytes. Blood smears from CBCs yielding IG's will be scanned manually for concordance. If this scan disagrees with the automated IG or if promyelocytes are noted, a manual differential will be performed. Immature Gran Absolute 0.02 0.00 - 0.04 x10(3)/[facility] Blood specimen (specimen) 02/28/2019 3:06 AM EST 02/28/2019 3:25 AM EST Narrative Resulting Agency Comment Spec In Lab Emeli Wall MD HEMATOLOGY ORDERAB LES [facility] [place] [place] [address] * (ABNORMAL) Hemogram (02/28/2019 3:06 AM EST) White Blood Cell 7.6 4.0 - 9.5 x10(3)/ L [facility] Red Blood Cell 3.46(L) 4.00 - 5.21 x10(6)/ L [facility] Hemoglobin 10.0(L) 11.7 - 15.5 gm/dL [facility] Hematocrit 32.5(L) 35.7 - 45.8 % [facility] Mean Cell Volume 93.9 82.6 - 94.4 fL [facility] Mean Cell Hemoglobin 28.9 27.1 - 32.0 pg [facility] Mean Cell Hemoglobin Concentration 30.8(L) 31.7 - 35.0 gm/dL [facility] Platelet 281 145 - 357 x10(3)/mc L [facility] RDW Standard Deviation 46.4(H) 37.0 - 46.0 fL [facility] RDW coefficient of variation 13.5 11.5 - 14.1 % [facility] Mean Platelet Volume 10.6 7.6 - 12.9 [facility] NRBC% auto 0.0 % [facility] NRBC Absolute 0.000 0.000 - 0.000 x10(3)/mc L [facility] Blood specimen (specimen) 02/28/2019 3:06 AM EST 02/28/2019 3:25 AM EST Narrative Resulting Agency Comment Spec In Lab Emeli Wall MD HEMATOLOGY ORDERAB LES [facility] [place] [address] * (ABNORMAL) BMP w/fasting Glucose (02/28/2019 3:06 AM EST) Glucose Fasting 245(H) 65 - 99 mg/dL [facility] Comment: ?Fasting* Glucose Interpretive Criteria Normal ?65-99 mg/dL Impaired Fasting glucose ?100-125 mg/dL Consistent with Diabetes Mellitus ? >or= 126 mg/dL *Fasting is defined as no caloric intake for at least 8 hours In the absence of unequivocal hyperglycemia a plasma glucose value of >or= 126 mg/dL should be repeated on a subsequent day. Diagnosis and Classification of Diabetes Mellitus, Position Statement from the [employer]. ??Diabetes Care, Volume 33, Supplement 1, Apr 2009 Blood Urea Nitrogen 42(H) 8 - 18 mg/dL [facility] Creatinine 2.20(H) 0.70 - 1.20 mg/dL [facility] Sodium 135 135 - 145 mmol/L [facility] Potassium 4.6 3.5 - 5.0 mmol/L [facility] Comment: Please note: ??Patients with WBC >100,000 may have falsely elevated Potassium levels. ??For accurate Potassium quantification in these patients send serum separator tube (gold top) for subsequent determinations. ??Contact the Clinical Chemistry Laboratory if there are any questions. Chloride 100 98 - 107 mmol/L [facility] Carbon Dioxide 23 22 - 31 mmol/L [facility] Anion Gap 12 5 - 15 mmol/L [facility] Calcium 8.9 8.5 - 10.5 mg/dL [facility] Est Glomerular Filtration Rate 24(L) >=60 mL/min/1. 73 m?? [facility] Comment: The eGFR was calculated using the CKD-EPI equation. As with all creatinine based estimates of kidney function, eGFR values calculated with the CKD-EPI equation are not accurate in patients with acute kidney failure, extremes of body mass or the acutely ill. http://Prior Knowledge/[facility] CITYnkf eGFR 27(L) >=60 mL/min/1. 73 m?? [facility] Comment: The eGFR was calculated using the CKD-EPI equation. As with all creatinine based estimates of kidney function, eGFR values calculated with the CKD-EPI equation are not accurate in patients with acute kidney failure, extremes of body mass or the acutely ill. [email or web address] [email or web address] Blood specimen (specimen) 02/28/2019 3:06 AM EST 02/28/2019 3:25 AM EST Narrative Resulting Agency Comment Spec In Lab Kaity Fontaine MD CHEMISTRY ORDERABLES Performing Organization Address City/[facility]/[place] [address] * Differential, Automated (02/27/2019 4:27 AM EST) Neutrophil % 45.3 % [facility] Neutrophil Absolute 3.00 1.70 - 6.10 x10(3)/[facility] LAB[facility] Lymph % 42.1 % [facility] Lymphocytes Abs 2.8 0.9 - 3.2 x10(3)/[facility] LAB[facility]ORY Monocyte % 7.0 % [facility] Monocyte Abs 0.5 0.3 - 0.9 x10(3)/[facility] LAB[facility] Eos % 4.2 % [facility] Eosinophils Abs 0.3 0.0 - 0.4 x10(3)/[facility] LABORATORY Basophil % 1.1 % [facility] Baso Absolute 0.1 0.0 - 0.1 x10(3)/[facility] LABORATORY Immature Gran % 0.30 % [facility] Comment: Immature granulocytes(IG's)percentage and absolute count will include metamyelocytes, myelocytes, and promyelocytes. Blood smears from CBCs yielding IG's will be scanned manually for concordance. If this scan disagrees with the automated IG or if promyelocytes are noted, a manual differential will be performed. Immature Gran Absolute 0.02 0.00 - 0.04 x10(3)/[facility] LAB[facility]ORY Blood specimen (specimen) 02/27/2019 4:27 AM EST 02/27/2019 4:57 AM EST Narrative Resulting Agency Comment Spec In Lab Emeli Wall MD HEMATOLOGY ORDERAB LES Performing Organization Address City/[facility]/[place] [address] * (ABNORMAL) Hemogram (02/27/2019 4:27 AM EST) White Blood Cell 6.6 4.0 - 9.5 x10(3)/ L [facility] Red Blood Cell 3.52(L) 4.00 - 5.21 x10(6)/ L [facility] Hemoglobin 10.3(L) 11.7 - 15.5 gm/dL [facility] Hematocrit 32.4(L) 35.7 - 45.8 % [facility] Mean Cell Volume 92.0 82.6 - 94.4 fL [facility] Mean Cell Hemoglobin 29.3 27.1 - 32.0 pg [facility] Mean Cell Hemoglobin Concentration 31.8 31.7 - 35.0 gm/dL [facility] Platelet 269 145 - 357 x10(3)/[facility] LABORATORY RDW Standard Deviation 45.5 37.0 - 46.0 [facility] LABORATORY RDW coefficient of variation 13.4 11.5 - 14.1 % [facility] Mean Platelet Volume 10.2 7.6 - 12.9 fL [facility] NRBC% auto 0.0 % [facility] NRBC Absolute 0.000 0.000 - 0.000 x10(3)/[facility] LABORATORY Blood specimen (specimen) 02/27/2019 4:27 AM EST 02/27/2019 4:57 AM EST Narrative Resulting Agency Comment Spec In Lab Emeli Wall MD HEMATOLOGY ORDERAB LES [facility] [place] [address] * (ABNORMAL) BMP w/fasting Glucose (02/27/2019 4:27 AM EST) Glucose Fasting 191(H) 65 - 99 mg/dL [facility] Comment: ?Fasting* Glucose Interpretive Criteria Normal ?65-99 mg/dL Impaired Fasting glucose ?100-125 mg/dL Consistent with Diabetes Mellitus ? >or= 126 mg/dL *Fasting is defined as no caloric intake for at least 8 hours In the absence of unequivocal hyperglycemia a plasma glucose value of >or= 126 mg/dL should be repeated on a subsequent day. Diagnosis and Classification of Diabetes Mellitus, Position Statement from the [place] [employer]. ??Diabetes Care, Volume 33, Supplement 1, Apr 2009 Blood Urea Nitrogen 34(H) 8 - 18 mg/dL [facility] Creatinine 1.94(H) 0.70 - 1.20 mg/dL [facility] Sodium 138 135 - 145 mmol/L [facility] Potassium 5.2(H) 3.5 - 5.0 mmol/L [facility] Comment: Please note: ??Patients with WBC >100,000 may have falsely elevated Potassium levels. ??For accurate Potassium quantification in these patients send serum separator tube (gold top) for subsequent determinations. ??Contact the Clinical Chemistry Laboratory if there are any questions. Chloride 102 98 - 107 mmol/L [facility] Carbon Dioxide 25 22 - 31 mmol/L [facility] Anion Gap 11 5 - 15 mmol/L [facility] Calcium 9.0 8.5 - 10.5 mg/dL [facility] Est Glomerular Filtration Rate 27(L) >=60 mL/min/1. 73 m?? [facility] Comment: The eGFR was calculated using the CKD-EPI equation. As with all creatinine based estimates of kidney function, eGFR values calculated with the CKD-EPI equation are not accurate in patients with acute kidney failure, extremes of body mass or the acutely ill. [email or web address] [email or web address] eGFR 32(L) >=60 mL/min/1. 73 m?? [facility] Comment: The eGFR was calculated using the CKD-EPI equation. As with all creatinine based estimates of kidney function, eGFR values calculated with the CKD-EPI equation are not accurate in patients with acute kidney failure, extremes of body mass or the acutely ill. [email or web address] [email or web address] Blood specimen (specimen) 02/27/2019 4:27 AM EST 02/27/2019 4:57 AM EST Narrative Resulting Agency Comment Spec In Lab Kaity Fontaine MD CHEMISTRY ORDERABLES [facility] [place] [address] * Differential, Automated (02/26/2019 4:43 AM EST) Neutrophil % 47.9 % [facility] Neutrophil Absolute 3.27 1.70 - 6.10 x10(3)/[facility] LABORATORY Lymph % 40.3 % [facility] Lymphocytes Abs 2.8 0.9 - 3.2 x10(3)/[facility] LABOR[facility]ORY Monocyte % 6.2 % [facility] Monocyte Abs 0.4 0.3 - 0.9 x10(3)/[facility] LABORATORY Eos % 4.3 % [facility] Eosinophils Abs 0.3 0.0 - 0.4 x10(3)/[facility] LABORATORY Basophil % 1.0 % [facility] Baso Absolute 0.1 0.0 - 0.1 x10(3)/[facility] LABORATORY Immature Gran % 0.30 % [facility] Comment: Immature granulocytes(IG's)percentage and absolute count will include metamyelocytes, myelocytes, and promyelocytes. Blood smears from CBCs yielding IG's will be scanned manually for concordance. If this scan disagrees with the automated IG or if promyelocytes are noted, a manual differential will be performed. Immature Gran Absolute 0.02 0.00 - 0.04 x10(3)/[facility] LABORATORY Blood specimen (specimen) 02/26/2019 4:43 AM EST 02/26/2019 5:06 AM EST Narrative Resulting Agency Comment Spec In Lab Emeli Wall MD HEMATOLOGY ORDERAB LES Performing Organization Address City/[facility]/ZIP Co de Phone Number [facility] [place] [address] * (ABNORMAL) Hemogram (02/26/2019 4:43 AM EST) White Blood Cell 6.8 4.0 - 9.5 x10(3)/mc L [facility] Red Blood Cell 3.68(L) 4.00 - 5.21 x10(6)/mc L [facility] Hemoglobin 10.9(L) 11.7 - 15.5 gm/dL [facility] Hematocrit 34.1(L) 35.7 - 45.8 % [facility] Mean Cell Volume 92.7 82.6 - 94.4 fL [facility] Mean Cell Hemoglobin 29.6 27.1 - 32.0 pg [facility] Mean Cell Hemoglobin Concentration 32.0 31.7 - 35.0 gm/dL [facility] Platelet 311 145 - 357 x10(3)/mc L [facility] RDW Standard Deviation 44.8 37.0 - 46.0 [facility] LABORATORY RDW coefficient of variation 13.2 11.5 - 14.1 % [facility] Mean Platelet Volume 10.1 7.6 - 12.9 [facility] LABORATORY NRBC% auto 0.0 % [facility] NRBC Absolute 0.000 0.000 - 0.000 x10(3)/mc L [facility] Blood specimen (specimen) 02/26/2019 4:43 AM EST 02/26/2019 5:06 AM EST Narrative Resulting Agency Comment Spec In Lab Emeli Wall MD HEMATOLOGY ORDERAB LES [facility] [place] [address] * (ABNORMAL) BMP w/fasting Glucose (02/26/2019 4:43 AM EST) [facility] Signature Glucose Fasting 74 65 - 99 mg/dL [facility] Comment: ?Fasting* Glucose Interpretive Criteria Normal ?65-99 mg/dL Impaired Fasting glucose ?100-125 mg/dL Consistent with Diabetes Mellitus ? >or= 126 mg/dL *Fasting is defined as no caloric intake for at least 8 hours In the absence of unequivocal hyperglycemia a plasma glucose value of >or= 126 mg/dL should be repeated on a subsequent day. Diagnosis and Classification of Diabetes Mellitus, Position Statement from the [place] [employer]. ??Diabetes Care, Volume 33, Supplement 1, Apr 2009 Blood Urea Nitrogen 22(H) 8 - 18 mg/dL [facility] Creatinine 1.44(H) 0.70 - 1.20 mg/dL [facility] Sodium 139 135 - 145 mmol/L [facility] Potassium 4.6 3.5 - 5.0 mmol/L [facility] Comment: Please note: ??Patients with WBC >100,000 may have falsely elevated Potassium levels. ??For accurate Potassium quantification in these patients send serum separator tube (gold top) for subsequent determinations. ??Contact the Clinical Chemistry Laboratory if there are any questions. Chloride 103 98 - 107 mmol/L [facility] Carbon Dioxide 22 22 - 31 mmol/L [facility] Anion Gap 14 5 - 15 mmol/L [facility] Calcium 9.0 8.5 - 10.5 mg/dL [facility] Est Glomerular Filtration Rate 39(L) >=60 mL/min/1. 73 m?? [facility] Comment: The eGFR was calculated using the CKD-EPI equation. As with all creatinine based estimates of kidney function, eGFR values calculated with the CKD-EPI equation are not accurate in patients with acute kidney failure, extremes of body mass or the acutely ill. http://Prior Knowledge/[facility] CITYnkf eGFR 46(L) >=60 mL/min/1. 73 m?? [facility] Comment: The eGFR was calculated using the CKD-EPI equation. As with all creatinine based estimates of kidney function, eGFR values calculated with the CKD-EPI equation are not accurate in patients with acute kidney failure, extremes of body mass or the acutely ill. [email or web address] [email or web address] Blood specimen (specimen) 02/26/2019 4:43 AM EST 02/26/2019 5:06 AM EST Narrative Resulting Agency Comment Spec In Lab Kaity Fontaine MD CHEMISTRY ORDERABLES Performing Organization Address City/State/[facility] Co de Phone Number [facility] [place] [address] * Differential, Automated (02/25/2019 3:34 AM EST) Neutrophil % 46.3 % [facility] Neutrophil Absolute 3.02 1.70 - 6.10 x10(3)/[facility] LABORATORY Lymph % 39.2 % [facility] Lymphocytes Abs 2.6 0.9 - 3.2 x10(3)/[facility] LABORATORY Monocyte % 7.1 % [facility] Monocyte Abs 0.5 0.3 - 0.9 x10(3)/[facility] LABORATORY Eos % 6.1 % [facility] Eosinophils Abs 0.4 0.0 - 0.4 x10(3)/[facility] LABORATORY Basophil % 1.1 % [facility] Baso Absolute 0.1 0.0 - 0.1 x10(3)/[facility] LABORATORY Immature Gran % 0.20 % [facility] Comment: Immature granulocytes(IG's)percentage and absolute count will include metamyelocytes, myelocytes, and promyelocytes. Blood smears from CBCs yielding IG's will be scanned manually for concordance. If this scan disagrees with the automated IG or if promyelocytes are noted, a manual differential will be performed. Immature Gran Absolute 0.01 0.00 - 0.04 x10(3)/mcL [facility] Blood specimen (specimen) 02/25/2019 3:34 AM EST 02/25/2019 3:59 AM EST Narrative Resulting Agency Comment Spec In Lab Servando Nolan MD HEMATOLOGY ORDERABLE S [facility] [place] [address] * (ABNORMAL) Hemogram (02/25/2019 3:34 AM EST) White Blood Cell 6.5 4.0 - 9.5 x10(3)/mc L [facility] Red Blood Cell 3.55(L) 4.00 - 5.21 x10(6)/mc L [facility] Hemoglobin 10.4(L) 11.7 - 15.5 gm/dL [facility] Hematocrit 33.3(L) 35.7 - 45.8 % [facility] Mean Cell Volume 93.8 82.6 - 94.4 fL [facility] Mean Cell Hemoglobin 29.3 27.1 - 32.0 pg [facility] Mean Cell Hemoglobin Concentration 31.2(L) 31.7 - 35.0 gm/dL [facility] Platelet 322 145 - 357 x10(3)/mc L [facility] RDW Standard Deviation 45.0 37.0 - 46.0 fL [facility] RDW coefficient of variation 13.1 11.5 - 14.1 % [facility] Mean Platelet Volume 10.4 7.6 - 12.9 fL [facility] NRBC% auto 0.0 % [facility] NRBC Absolute 0.000 0.000 - 0.000 x10(3)/mc L [facility] Blood specimen (specimen) 02/25/2019 3:34 AM EST 02/25/2019 3:59 AM EST Narrative Resulting Agency Comment Spec In Lab Servando Nolan MD HEMATOLOGY ORDERABLE S [facility] [place] [address] * (ABNORMAL) BMP w/fasting Glucose (02/25/2019 3:34 AM EST) Glucose Fasting 205(H) 65 - 99 mg/dL [facility] Comment: ?Fasting* Glucose Interpretive Criteria Normal ?65-99 mg/dL Impaired Fasting glucose ?100-125 mg/dL Consistent with Diabetes Mellitus ? >or= 126 mg/dL *Fasting is defined as no caloric intake for at least 8 hours In the absence of unequivocal hyperglycemia a plasma glucose value of >or= 126 mg/dL should be repeated on a subsequent day. Diagnosis and Classification of Diabetes Mellitus, Position Statement from the [place] [employer]. ??Diabetes Care, Volume 33, Supplement 1, Apr 2009 Blood Urea Nitrogen 25(H) 8 - 18 mg/dL [facility] Creatinine 1.63(H) 0.70 - 1.20 mg/dL [facility] Sodium 140 135 - 145 mmol/L [facility] Potassium 4.7 3.5 - 5.0 mmol/L [facility] Comment: Please note: ??Patients with WBC >100,000 may have falsely elevated Potassium levels. ??For accurate Potassium quantification in these patients send serum separator tube (gold top) for subsequent determinations. ??Contact the Clinical Chemistry Laboratory if there are any questions. Chloride 105 98 - 107 mmol/L [facility] Carbon Dioxide 24 22 - 31 mmol/L [facility] Anion Gap 11 5 - 15 mmol/L [facility] Calcium 9.1 8.5 - 10.5 mg/dL [facility] Est Glomerular Filtration Rate 34(L) >=60 mL/min/1. 73 m?? [facility] Comment: The eGFR was calculated using the CKD-EPI equation. As with all creatinine based estimates of kidney function, eGFR values calculated with the CKD-EPI equation are not accurate in patients with acute kidney failure, extremes of body mass or the acutely ill. http://Prior Knowledge/[facility] CITYnkf eGFR 39(L) >=60 mL/min/1. 73 m?? [facility] Comment: The eGFR was calculated using the CKD-EPI equation. As with all creatinine based estimates of kidney function, eGFR values calculated with the CKD-EPI equation are not accurate in patients with acute kidney failure, extremes of body mass or the acutely ill. http://Prior Knowledge/[facility]nk[facility] Blood specimen (specimen) 02/25/2019 3:34 AM EST 02/25/2019 3:59 AM EST Narrative Resulting Agency Comment Spec In Lab Kaity Fontaine MD CHEMISTRY ORDERABLES Performing Organization Address City/State/[facility] Co de Phone Number [facility] [place] [address] * Differential, Automated (02/24/2019 3:52 AM EST) Neutrophil % 40.8 % [facility] Neutrophil Absolute 2.66 1.70 - 6.10 x10(3)/[facility] LABORATORY Lymph % 44.1 % [facility] Lymphocytes Abs 2.9 0.9 - 3.2 x10(3)/[facility] LAB[facility]ATORY Monocyte % 7.4 % [facility] Monocyte Abs 0.5 0.3 - 0.9 x10(3)/[facility] LABORATORY Eos % 6.6 % [facility] Eosinophils Abs 0.4 0.0 - 0.4 x10(3)/[facility] LABORATORY Basophil % 0.9 % [facility] Baso Absolute 0.1 0.0 - 0.1 x10(3)/[facility] LAB[facility] Immature Gran % 0.20 % [facility] Comment: Immature granulocytes(IG's)percentage and absolute count will include metamyelocytes, myelocytes, and promyelocytes. Blood smears from CBCs yielding IG's will be scanned manually for concordance. If this scan disagrees with the automated IG or if promyelocytes are noted, a manual differential will be performed. Immature Gran Absolute 0.01 0.00 - 0.04 x10(3)/[facility] LAB[facility] Blood specimen (specimen) 02/24/2019 3:52 AM EST 02/24/2019 4:25 AM EST Narrative Resulting Agency Comment Spec In Lab Servando Nolan MD HEMATOLOGY ORDERABLE S Performing Organization Address City/State/[facility] Co de Phone Number [facility] [place] [address] * (ABNORMAL) Hemogram (02/24/2019 3:52 AM EST) White Blood Cell 6.5 4.0 - 9.5 x10(3)/mc L [facility] Red Blood Cell 3.58(L) 4.00 - 5.21 x10(6)/mc L [facility] Hemoglobin 10.6(L) 11.7 - 15.5 gm/dL [facility] Hematocrit 33.9(L) 35.7 - 45.8 % [facility] Mean Cell Volume 94.7(H) 82.6 - 94.4 fL [facility] Mean Cell Hemoglobin 29.6 27.1 - 32.0 pg [facility] Mean Cell Hemoglobin Concentration 31.3(L) 31.7 - 35.0 gm/dL [facility] Platelet 316 145 - 357 x10(3)/ L [facility] RDW Standard Deviation 45.4 37.0 - 46.0 fL [facility] RDW coefficient of variation 13.2 11.5 - 14.1 % [facility] Mean Platelet Volume 10.3 7.6 - 12.9 fL [facility] NRBC% auto 0.0 % [facility] NRBC Absolute 0.000 0.000 - 0.000 x10(3)/mc L [facility] Blood specimen (specimen) 02/24/2019 3:52 AM EST 02/24/2019 4:25 AM EST Narrative Resulting Agency Comment Spec In Lab Servando Nolan MD HEMATOLOGY ORDERABLE S Performing Organization Address City/State/[facility] Co de Phone Number [facility] [place] [address] * (ABNORMAL) BMP w/fasting Glucose (02/24/2019 3:52 AM EST) Glucose Fasting 133(H) 65 - 99 mg/dL [facility] Comment: ?Fasting* Glucose Interpretive Criteria Normal ?65-99 mg/dL Impaired Fasting glucose ?100-125 mg/dL Consistent with Diabetes Mellitus ? >or= 126 mg/dL *Fasting is defined as no caloric intake for at least 8 hours In the absence of unequivocal hyperglycemia a plasma glucose value of >or= 126 mg/dL should be repeated on a subsequent day. Diagnosis and Classification of Diabetes Mellitus, Position Statement from the [place]. ??Diabetes Care, Volume 33, Supplement 1, Apr 2009 Blood Urea Nitrogen 21(H) 8 - 18 mg/dL [facility] Creatinine 1.69(H) 0.70 - 1.20 mg/dL [facility] Sodium 141 135 - 145 mmol/L [facility] Potassium 4.7 3.5 - 5.0 mmol/L [facility] Comment: Please note: ??Patients with WBC >100,000 may have falsely elevated Potassium levels. ??For accurate Potassium quantification in these patients send serum separator tube (gold top) for subsequent determinations. ??Contact the Clinical Chemistry Laboratory if there are any questions. Chloride 107 98 - 107 mmol/L [facility] Carbon Dioxide 23 22 - 31 mmol/L [facility] Anion Gap 11 5 - 15 mmol/L [facility] Calcium 8.9 8.5 - 10.5 mg/dL [facility] Est Glomerular Filtration Rate 32(L) >=60 mL/min/1. 73 m?? [facility] Comment: The eGFR was calculated using the CKD-EPI equation. As with all creatinine based estimates of kidney function, eGFR values calculated with the CKD-EPI equation are not accurate in patients with acute kidney failure, extremes of body mass or the acutely ill. http://Prior Knowledge/[facility] CITYnk[facility] eGFR 38(L) >=60 mL/min/1. 73 m?? [facility] Comment: The eGFR was calculated using the CKD-EPI equation. As with all creatinine based estimates of kidney function, eGFR values calculated with the CKD-EPI equation are not accurate in patients with acute kidney failure, extremes of body mass or the acutely ill. [email or web address] [email or web address] Blood specimen (specimen) 02/24/2019 3:52 AM EST 02/24/2019 4:25 AM EST Narrative Resulting Agency Comment Spec In Lab Kaity Fontaine MD CHEMISTRY ORDERABLES [facility] [place] [address] * (ABNORMAL) POCT Glucose (02/23/2019 3:43 PM EST) Glucose, POC 216(H) 65 - 199 mg/dL [facility] Comment: Supplemental ranges: <140 mg/dL before meals <180 mg/dL all other times of the day Blood specimen (specimen) 02/23/2019 3:43 PM EST 02/23/2019 3:43 PM EST Kaity Fontaine MD POINT OF CARE TEST O RDERABLES Performing Organization Address City/[facility]/ZIP Co de Phone Number [facility] [place] [address] * Differential, Automated (02/23/2019 3:22 AM EST) Neutrophil % 47.1 % [facility] Neutrophil Absolute 2.82 1.70 - 6.10 x10(3)/[facility] LABORATORY Lymph % 37.5 % [facility] Lymphocytes Abs 2.2 0.9 - 3.2 x10(3)/[facility] LABORATORY Monocyte % 6.7 % [facility] Monocyte Abs 0.4 0.3 - 0.9 x10(3)/[facility] LABORATORY Eos % 7.0 % [facility] Eosinophils Abs 0.4 0.0 - 0.4 x10(3)/[facility] LABORATORY Basophil % 1.5 % [facility] Baso Absolute 0.1 0.0 - 0.1 x10(3)/[facility] LABORATORY Immature Gran % 0.20 % [facility] Comment: Immature granulocytes(IG's)percentage and absolute count will include metamyelocytes, myelocytes, and promyelocytes. Blood smears from CBCs yielding IG's will be scanned manually for concordance. If this scan disagrees with the automated IG or if promyelocytes are noted, a manual differential will be performed. Immature Gran Absolute 0.01 0.00 - 0.04 x10(3)/[facility] LABORATORY Blood specimen (specimen) 02/23/2019 3:22 AM EST 02/23/2019 3:48 AM EST Narrative Resulting Agency Comment Spec In Lab Servando Nolan MD HEMATOLOGY ORDERABLE S [facility] [place] [address] * (ABNORMAL) Hemogram (02/23/2019 3:22 AM EST) [facility] White Blood Cell 6.0 4.0 - 9.5 x10(3)/ L [facility] Red Blood Cell 3.74(L) 4.00 - 5.21 x10(6)/ L [facility] Hemoglobin 10.8(L) 11.7 - 15.5 gm/dL [facility] Hematocrit 35.4(L) 35.7 - 45.8 % [facility] Mean Cell Volume 94.7(H) 82.6 - 94.4 fL [facility] Mean Cell Hemoglobin 28.9 27.1 - 32.0 pg [facility] Mean Cell Hemoglobin Concentration 30.5(L) 31.7 - 35.0 gm/dL [facility] Platelet 353 145 - 357 x10(3)/[facility] LABORATORY RDW Standard Deviation 46.1(H) 37.0 - 46.0 fL [facility] RDW coefficient of variation 13.4 11.5 - 14.1 % [facility] Mean Platelet Volume 10.0 7.6 - 12.9 fL [facility] NRBC% auto 0.0 % [facility] NRBC Absolute 0.000 0.000 - 0.000 x10(3)/[facility] LABORATORY Blood specimen (specimen) 02/23/2019 3:22 AM EST 02/23/2019 3:48 AM EST Narrative Resulting Agency Comment Spec In Lab Servando Nolan MD HEMATOLOGY ORDERABLE S [facility] [place] [address] * (ABNORMAL) BMP w/fasting Glucose (02/23/2019 3:22 AM EST) [facility] Glucose Fasting 95 65 - 99 mg/dL [facility] Comment: ?Fasting* Glucose Interpretive Criteria Normal ?65-99 mg/dL Impaired Fasting glucose ?100-125 mg/dL Consistent with Diabetes Mellitus ? >or= 126 mg/dL *Fasting is defined as no caloric intake for at least 8 hours In the absence of unequivocal hyperglycemia a plasma glucose value of >or= 126 mg/dL should be repeated on a subsequent day. Diagnosis and Classification of Diabetes Mellitus, Position Statement from the [place] [employer]. ??Diabetes Care, Volume 33, Supplement 1, Apr 2009 Blood Urea Nitrogen 18 8 - 18 mg/dL [facility] Creatinine 1.36(H) 0.70 - 1.20 mg/dL [facility] Sodium 141 135 - 145 mmol/L [facility] Potassium 4.7 3.5 - 5.0 mmol/L [facility] Comment: Please note: ??Patients with WBC >100,000 may have falsely elevated Potassium levels. ??For accurate Potassium quantification in these patients send serum separator tube (gold top) for subsequent determinations. ??Contact the Clinical Chemistry Laboratory if there are any questions. Chloride 106 98 - 107 mmol/L [facility] Carbon Dioxide 23 22 - 31 mmol/L [facility] Anion Gap 12 5 - 15 mmol/L [facility] Calcium 9.1 8.5 - 10.5 mg/dL [facility] Est Glomerular Filtration Rate 42(L) >=60 mL/min/1. 73 m?? [facility] Comment: The eGFR was calculated using the CKD-EPI equation. As with all creatinine based estimates of kidney function, eGFR values calculated with the CKD-EPI equation are not accurate in patients with acute kidney failure, extremes of body mass or the acutely ill. http://Prior Knowledge/[facility]nk[facility] eGFR 49(L) >=60 mL/min/1. 73 m?? [facility] Comment: The eGFR was calculated using the CKD-EPI equation. As with all creatinine based estimates of kidney function, eGFR values calculated with the CKD-EPI equation are not accurate in patients with acute kidney failure, extremes of body mass or the acutely ill. [email or web address] [email or web address] Blood specimen (specimen) 02/23/2019 3:22 AM EST 02/23/2019 3:48 AM EST Narrative Resulting Agency Comment Spec In Lab Kaity Fontaine MD CHEMISTRY ORDERABLES Performing Organization Address [facility]/ZIP Co de Phone Number [facility] [place] [address] * POCT Glucose (02/22/2019 8:57 AM EST) [facility] Glucose, POC 67 65 - 199 mg/dL [facility] Comment: Supplemental ranges: <140 mg/dL before meals <180 mg/dL all other times of the day Blood specimen (specimen) 02/22/2019 8:57 AM EST 02/22/2019 8:57 AM EST Katiy Fontaine MD POINT OF CARE TEST O RDERABLES Performing Organization Address City/[facility]/ZIP Co de Phone Number [facility] [place] [address] * Differential, Automated (02/22/2019 3:41 AM EST) [facility] Neutrophil % 50.4 % [facility] Neutrophil Absolute 3.04 1.70 - 6.10 x10(3)/[facility] LABORATORY Lymph % 33.4 % [facility] Lymphocytes Abs 2.0 0.9 - 3.2 x10(3)/[facility] LABORATORY Monocyte % 7.5 % [facility] Monocyte Abs 0.4 0.3 - 0.9 x10(3)/[facility] LABORATORY Eos % 7.3 % [facility] Eosinophils Abs 0.4 0.0 - 0.4 x10(3)/[facility] LABORATORY Basophil % 1.2 % [facility] Baso Absolute 0.1 0.0 - 0.1 x10(3)/[facility] LABORATORY Immature Gran % 0.20 % [facility] Comment: Immature granulocytes(IG's)percentage and absolute count will include metamyelocytes, myelocytes, and promyelocytes. Blood smears from CBCs yielding IG's will be scanned manually for concordance. If this scan disagrees with the automated IG or if promyelocytes are noted, a manual differential will be performed. Immature Gran Absolute 0.01 0.00 - 0.04 x10(3)/[facility] LABORATORY Blood specimen (specimen) 02/22/2019 3:41 AM EST 02/22/2019 4:17 AM EST Narrative Resulting Agency Comment Spec In Lab Zenobia Quijano MD HEMATOLOGY ORDERABLE S [facility] [place] [address] * (ABNORMAL) Hemogram (02/22/2019 3:41 AM EST) White Blood Cell 6.0 4.0 - 9.5 x10(3)/mc L [facility] Red Blood Cell 3.58(L) 4.00 - 5.21 x10(6)/mc L [facility] Hemoglobin 10.2(L) 11.7 - 15.5 gm/dL [facility] Hematocrit 33.5(L) 35.7 - 45.8 % [facility] Mean Cell Volume 93.6 82.6 - 94.4 fL [facility] Mean Cell Hemoglobin 28.5 27.1 - 32.0 pg [facility] Mean Cell Hemoglobin Concentration 30.4(L) 31.7 - 35.0 gm/dL [facility] Platelet 351 145 - 357 x10(3)/mc L [facility] RDW Standard Deviation 45.7 37.0 - 46.0 [facility] LABORATORY RDW coefficient of variation 13.2 11.5 - 14.1 % [facility] Mean Platelet Volume 10.1 7.6 - 12.9 [facility] LABORATORY NRBC% auto 0.0 % [facility] NRBC Absolute 0.000 0.000 - 0.000 x10(3)/mc L [facility] Blood specimen (specimen) 02/22/2019 3:41 AM EST 02/22/2019 4:17 AM EST Narrative Resulting Agency Comment Spec In Lab Zenobia Quijano MD HEMATOLOGY ORDERABLE S Performing Organization Address City/State/[facility] Co de Phone Number [facility] [place] [address] * (ABNORMAL) BMP w/fasting Glucose (02/22/2019 3:41 AM EST) Glucose Fasting 125(H) 65 - 99 mg/dL [facility] Comment: ?Fasting* Glucose Interpretive Criteria Normal ?65-99 mg/dL Impaired Fasting glucose ?100-125 mg/dL Consistent with Diabetes Mellitus ? >or= 126 mg/dL *Fasting is defined as no caloric intake for at least 8 hours In the absence of unequivocal hyperglycemia a plasma glucose value of >or= 126 mg/dL should be repeated on a subsequent day. Diagnosis and Classification of Diabetes Mellitus, Position Statement from the [place] [employer]. ??Diabetes Care, Volume 33, Supplement 1, Apr 2009 Blood Urea Nitrogen 21(H) 8 - 18 mg/dL [facility] Creatinine 1.48(H) 0.70 - 1.20 mg/dL [facility] Sodium 141 135 - 145 mmol/L [facility] Potassium 4.9 3.5 - 5.0 mmol/L [facility] Comment: Please note: ??Patients with WBC >100,000 may have falsely elevated Potassium levels. ??For accurate Potassium quantification in these patients send serum separator tube (gold top) for subsequent determinations. ??Contact the Clinical Chemistry Laboratory if there are any questions. Chloride 106 98 - 107 mmol/L [facility] Carbon Dioxide 23 22 - 31 mmol/L [facility] Anion Gap 12 5 - 15 mmol/L [facility] Calcium 8.7 8.5 - 10.5 mg/dL [facility] Est Glomerular Filtration Rate 38(L) >=60 mL/min/1. 73 m?? [facility] Comment: The eGFR was calculated using the CKD-EPI equation. As with all creatinine based estimates of kidney function, eGFR values calculated with the CKD-EPI equation are not accurate in patients with acute kidney failure, extremes of body mass or the acutely ill. http://Prior Knowledge/[facility]nk[facility] eGFR 44(L) >=60 mL/min/1. 73 m?? [facility] Comment: The eGFR was calculated using the CKD-EPI equation. As with all creatinine based estimates of kidney function, eGFR values calculated with the CKD-EPI equation are not accurate in patients with acute kidney failure, extremes of body mass or the acutely ill. [email or web address] [email or web address] Blood specimen (specimen) 02/22/2019 3:41 AM EST 02/22/2019 4:17 AM EST Narrative Resulting Agency Comment Spec In Lab Kaity Fontaine MD CHEMISTRY ORDERABLES [facility] [place] [address] * Urinalysis Microscopic Exam (02/21/2019 5:25 PM EST) RBC, Urine 3 0 - 4 /HPF [facility] WBC, Urine 5 0 - 5 /HPF [facility] Urine specimen obtained via indwelling urinary catheter (specimen) 02/21/2019 5:25 PM EST 02/21/2019 5:52 PM EST Narrative Resulting Agency Comment Spec In Lab Servando Nolan MD URINE ORDERABLES Performing Organization Address City/[facility]/ZIP Co de Phone Number [facility] [place] [address] * (ABNORMAL) Urinalysis with reflex Culture (02/21/2019 5:25 PM EST) Glucose, Urine Dipstick Negative Negative mg/dL [facility] Protein, Urine Dipstick Negative Negative mg/dL [facility] Bilirubin, Urine Dipstick Negative Negative mg/dL [facility] Comment: Clinical correlation required for positive Urine Bilirubin results as false positive may occur with some drugs and drug related products. If a false positive is suspected a serum total bilirubin should be considered if clinically indicated. Urobilinogen, Urine Dipstick Normal Normal mg/dL [facility] pH, Urn (dipstick) 6.5 5.0 - 8.0 [facility] Blood, Urine Dipstick Negative Negative mg/dL [facility] Ketone, Urine Dipstick Negative Negative mg/dL [facility] Nitrite, Urine Dipstick Negative Negative [facility] Leukocytes, Urine Dipstick Trace(A) Negative [facility] Appearance, Urine Dipstick Clear Clear [facility] Specific [place] Urine Automated 1.015 1.002 - 1.030 [facility] Color, Urine Dipstick Yellow Yellow [facility] Reflex to Culture No [facility] Urine specimen obtained via indwelling urinary catheter (specimen) 02/21/2019 5:25 PM EST 02/21/2019 5:52 PM EST Narrative Resulting Agency Comment Spec In Lab Kaity Fontaine MD URINE [place] [address] * Differential, Automated (02/21/2019 3:27 AM EST) Neutrophil % 56.1 % [facility] Neutrophil Absolute 3.96 1.70 - 6.10 x10(3)/[facility] LABORATORY Lymph % 28.8 % [facility] Lymphocytes Abs 2.0 0.9 - 3.2 x10(3)/[facility] LABORATORY Monocyte % 7.6 % [facility] Monocyte Abs 0.5 0.3 - 0.9 x10(3)/[facility] LABORATORY Eos % 6.2 % [facility] [place] Eosinophils Abs 0.4 0.0 - 0.4 x10(3)/[facility] Basophil % 1.0 % [facility] Baso Absolute 0.1 0.0 - 0.1 x10(3)/[facility] Immature Gran % 0.30 % [facility] Comment: Immature granulocytes(IG's)percentage and absolute count will include metamyelocytes, myelocytes, and promyelocytes. Blood smears from CBCs yielding IG's will be scanned manually for concordance. If this scan disagrees with the automated IG or if promyelocytes are noted, a manual differential will be performed. Immature Gran Absolute 0.02 0.00 - 0.04 x10(3)/[facility] LABORATORY Blood specimen (specimen) 02/21/2019 3:27 AM EST 02/21/2019 3:36 AM EST Narrative Resulting Agency Comment Spec In Lab Zenobia Quijano MD [place] [address] * (ABNORMAL) Hemogram (02/21/2019 3:27 AM EST) Pathologist [facility] White Blood Cell 7.1 4.0 - 9.5 x10(3)/mc L [facility] Red Blood Cell 3.38(L) 4.00 - 5.21 x10(6)/[facility] LABORATORY Hemoglobin 9.9(L) 11.7 - 15.5 gm/dL [facility] Hematocrit 31.9(L) 35.7 - 45.8 % [facility] Mean Cell Volume 94.4 82.6 - 94.4 fL [facility] Mean Cell Hemoglobin 29.3 27.1 - 32.0 pg [facility] Mean Cell Hemoglobin Concentration 31.0(L) 31.7 - 35.0 gm/dL [facility] Platelet 331 145 - 357 x10(3)/[facility] LABORATORY RDW Standard Deviation 46.7(H) 37.0 - 46.0 [facility] LABORATORY RDW coefficient of variation 13.4 11.5 - 14.1 % [facility] Mean Platelet Volume 9.8 7.6 - 12.9 [facility] LABORATORY NRBC% auto 0.0 % [facility] NRBC Absolute 0.000 0.000 - 0.000 x10(3)/[facility] LABORATORY Blood specimen (specimen) 02/21/2019 3:27 AM EST 02/21/2019 3:36 AM EST Narrative Resulting Agency Comment Spec In Lab Zenobia Quijano MD HEMATOLOGY ORDERABLE S [facility] [place] [address] * (ABNORMAL) BMP w/fasting Glucose (02/21/2019 3:27 AM EST) Glucose Fasting 76 65 - 99 mg/dL [facility] Comment: ?Fasting* Glucose Interpretive Criteria Normal ?65-99 mg/dL Impaired Fasting glucose ?100-125 mg/dL Consistent with Diabetes Mellitus ? >or= 126 mg/dL *Fasting is defined as no caloric intake for at least 8 hours In the absence of unequivocal hyperglycemia a plasma glucose value of >or= 126 mg/dL should be repeated on a subsequent day. Diagnosis and Classification of Diabetes Mellitus, Position Statement from the [place] [employer]. ??Diabetes Care, Volume 33, Supplement 1, Apr 2009 Blood Urea Nitrogen 27(H) 8 - 18 mg/dL [facility] Creatinine 1.60(H) 0.70 - 1.20 mg/dL [facility] Sodium 141 135 - 145 mmol/L [facility] Potassium 4.8 3.5 - 5.0 mmol/L [facility] Comment: Please note: ??Patients with WBC >100,000 may have falsely elevated Potassium levels. ??For accurate Potassium quantification in these patients send serum separator tube (gold top) for subsequent determinations. ??Contact the Clinical Chemistry Laboratory if there are any questions. Chloride 107 98 - 107 mmol/L [facility] Carbon Dioxide 23 22 - 31 mmol/L [facility] Anion Gap 11 5 - 15 mmol/L [facility] Calcium 8.7 8.5 - 10.5 mg/dL [facility] Est Glomerular Filtration Rate 35(L) >=60 mL/min/1. 73 m?? [facility] Comment: The eGFR was calculated using the CKD-EPI equation. As with all creatinine based estimates of kidney function, eGFR values calculated with the CKD-EPI equation are not accurate in patients with acute kidney failure, extremes of body mass or the acutely ill. http://Prior [email or web address] eGFR 40(L) >=60 mL/min/1. 73 m?? [facility] Comment: The eGFR was calculated using the CKD-EPI equation. As with all creatinine based estimates of kidney function, eGFR values calculated with the CKD-EPI equation are not accurate in patients with acute kidney failure, extremes of body mass or the acutely ill. [email or web address] Blood specimen (specimen) 02/21/2019 3:27 AM EST 02/21/2019 3:36 AM EST Narrative Resulting Agency Comment Spec In Lab Kaity Fontaine MD CHEMISTRY ORDERABLES [facility] [place] [address] * Differential, Automated (02/20/2019 5:45 PM EST) Neutrophil % 61.4 % [facility] Neutrophil Absolute 4.30 1.70 - 6.10 x10(3)/[facility] LABORATORY Lymph % 25.4 % [facility] Lymphocytes Abs 1.8 0.9 - 3.2 x10(3)/[facility] LABORATORY Monocyte % 6.7 % [facility] Monocyte Abs 0.5 0.3 - 0.9 x10(3)/[facility] LABORATORY Eos % 5.3 % [facility] Eosinophils Abs 0.4 0.0 - 0.4 x10(3)/[facility] LABORATORY Basophil % 0.9 % [facility] Baso Absolute 0.1 0.0 - 0.1 x10(3)/[facility] LABORATORY Immature Gran % 0.30 % [facility] Comment: Immature granulocytes(IG's)percentage and absolute count will include metamyelocytes, myelocytes, and promyelocytes. Blood smears from CBCs yielding IG's will be scanned manually for concordance. If this scan disagrees with the automated IG or if promyelocytes are noted, a manual differential will be performed. Immature Gran Absolute 0.02 0.00 - 0.04 x10(3)/[facility] LABORATORY Blood specimen (specimen) 02/20/2019 5:45 PM EST 02/20/2019 6:01 PM EST Narrative Resulting Agency Comment Spec In Lab Zenobia Quijano MD HEMATOLOGY ORDERABLE S [facility] [place] [address] * (ABNORMAL) Hemogram (02/20/2019 5:45 PM EST) White Blood Cell 7.0 4.0 - 9.5 x10(3)/mc L [facility] Red Blood Cell 3.50(L) 4.00 - 5.21 x10(6)/mc L [facility] Hemoglobin 10.4(L) 11.7 - 15.5 gm/dL [facility] Hematocrit 33.0(L) 35.7 - 45.8 % [facility] Mean Cell Volume 94.3 82.6 - 94.4 fL [facility] Mean Cell Hemoglobin 29.7 27.1 - 32.0 pg [facility] Mean Cell Hemoglobin Concentration 31.5(L) 31.7 - 35.0 gm/dL [facility] Platelet 349 145 - 357 x10(3)/mc L [facility] RDW Standard Deviation 46.7(H) 37.0 - 46.0 fL [facility] RDW coefficient of variation 13.5 11.5 - 14.1 % [facility] Mean Platelet Volume 10.0 7.6 - 12.9 fL [facility] NRBC% auto 0.0 % [facility] NRBC Absolute 0.000 0.000 - 0.000 x10(3)/mc L [facility] Blood specimen (specimen) 02/20/2019 5:45 PM EST 02/20/2019 6:01 PM EST Narrative Resulting Agency Comment Spec In Lab Zenobia Quijano MD HEMATOLOGY ORDERABLE S [facility] [place] [place] [address] * (ABNORMAL) BMP w/fasting Glucose (02/20/2019 5:45 PM EST) Glucose Fasting 134(H) 65 - 99 mg/dL [facility] Comment: ?Fasting* Glucose Interpretive Criteria Normal ?65-99 mg/dL Impaired Fasting glucose ?100-125 mg/dL Consistent with Diabetes Mellitus ? >or= 126 mg/dL *Fasting is defined as no caloric intake for at least 8 hours In the absence of unequivocal hyperglycemia a plasma glucose value of >or= 126 mg/dL should be repeated on a subsequent day. Diagnosis and Classification of Diabetes Mellitus, Position Statement from the [place] [employer]. ??Diabetes Care, Volume 33, Supplement 1, Apr 2009 Blood Urea Nitrogen 29(H) 8 - 18 mg/dL [facility] Creatinine 1.58(H) 0.70 - 1.20 mg/dL [facility] Sodium 142 135 - 145 mmol/L [facility] Potassium 5.0 3.5 - 5.0 mmol/L [facility] Comment: Please note: ??Patients with WBC >100,000 may have falsely elevated Potassium levels. ??For accurate Potassium quantification in these patients send serum separator tube (gold top) for subsequent determinations. ??Contact the Clinical Chemistry Laboratory if there are any questions. Chloride 106 98 - 107 mmol/L [facility] Carbon Dioxide 23 22 - 31 mmol/L [facility] Anion Gap 13 5 - 15 mmol/L [facility] Calcium 9.1 8.5 - 10.5 mg/dL [facility] Est Glomerular Filtration Rate 35(L) >=60 mL/min/1. 73 m?? [facility] Comment: The eGFR was calculated using the CKD-EPI equation. As with all creatinine based estimates of kidney function, eGFR values calculated with the CKD-EPI equation are not accurate in patients with acute kidney failure, extremes of body mass or the acutely ill. http://Prior Knowledge/DHMCnkf eGFR 41(L) >=60 mL/min/1. 73 m?? [facility] Comment: The eGFR was calculated using the CKD-EPI equation. As with all creatinine based estimates of kidney function, eGFR values calculated with the CKD-EPI equation are not accurate in patients with acute kidney failure, extremes of body mass or the acutely ill. http://Prior Knowledge/DHMCnkf Blood specimen (specimen) 02/20/2019 5:45 PM EST 02/20/2019 6:01 PM EST Narrative Resulting Agency Comment Spec In Lab Kaity Fotnaine MD CHEMISTRY ORDERABLES Performing Organization Address [facility] Co de Phone Number [facility] [place] [place] [address] * Anaerobic Culture (02/20/2019 5:42 PM EST) Anaerobic Culture No anaerobic organisms isolated [facility] Deep Wound INGUINAL REGION STRUCTURE / Unknown 02/20/2019 5:42 PM EST 02/20/2019 6:03 PM EST Comment:RIGHT GROIN DEEP WOU ND CULTURE Narrative Resulting Agency Comment Spec In Lab Kaity Fontaine MD MICROBIOLOGY - GENER AL ORDERABLES Performing Organization Address [facility] Co de Phone Number [facility] [place] [address] * (ABNORMAL) Abscess/Wound Aspirate Culture (02/20/2019 5:42 PM EST) Abscess/Wound Aspirate Culture Escherichia coli isolated from broth culture. Few Staphylococcus lugdunensis (A) [facility] Gram Stain Few Neutrophils seen Rare Gram Positive Cocci seen (A) [facility] Organism Escherichia coli(A) [facility] Organism Staphylococcus lugdunensis(A) [facility] Organism Gram Positive Cocci(A) [facility] Deep Wound INGUINAL REGION STRUCTURE / Unknown 02/20/2019 5:42 PM EST 02/20/2019 6:03 PM EST Comment:RIGHT GROIN DEEP WOU ND CULTURE Narrative Resulting Agency Comment Spec In Lab Organism Antibiotic Method Susceptibility Escherichia coli Amikacin VITEK 2 METHOD Sensitive Escherichia coli Ampicillin + Sulbactam VITEK 2 METHOD Sensitive Escherichia coli Aztreonam VITEK 2 METHOD Sensitive Escherichia coli Ceftazidime VITEK 2 METHOD <=1: Sensitive Escherichia coli Ceftriaxone VITEK 2 METHOD Sensitive Escherichia coli Ertapenem VITEK 2 METHOD Sensitive Escherichia coli Gentamicin VITEK 2 METHOD Sensitive Escherichia coli Levofloxacin VITEK 2 METHOD Sensitive Comment: Levofloxacin and Ciprofloxacin may not adequately treat infections in critically ill patients even when isolates test susceptible in the laboratory. Contact Infectious Disease before using in critically ill patients. Escherichia coli Meropenem VITEK 2 METHOD <=0.25: Sensitive Escherichia coli Piperacillin/Tazobactam VITEK 2 METHO D <=4: Sensitive Escherichia coli Tetracycline VITEK 2 METHOD Sensitive Escherichia coli Tigecycline VITEK 2 METHOD Sensitive Escherichia coli Tobramycin VITEK 2 METHOD Sensitive Escherichia coli Trimethoprim/Sulfa VITEK 2 METHOD Sensitive Staphylococcus lugdunensis Cefazolin MICROSCAN METHOD Sensitive Staphylococcus lugdunensis Ceftriaxone MICROSCAN METHOD Sensitive Staphylococcus lugdunensis Ciprofloxacin MICROSCAN METHOD Sensitive Staphylococcus lugdunensis Clindamycin MICROSCAN METHOD Resistant Staphylococcus lugdunensis Erythromycin MICROSCAN METHOD Resistant Staphylococcus lugdunensis Gentamicin MICROSCAN METHOD Sensitive Comment:Gentamicin i s not appropriate for [place]-therapy. Staphylococcus lugdunensis Levofloxacin MICROSCAN METHOD Sensitive Staphylococcus lugdunensis Oxacillin MICROSCAN METHOD Sensitive Comment: Penicillin resistant, Nafcillin susceptible Staphylococci are resistant to B-lactamase labile Penicillins including Ampicillin and Piperacillin, but susceptible to B-lactamase olga Penicillins (Nafcillin), B-lactamase inhibitor combinations, first and second generation Cephalosporins including Cefazolin, and to Cefepime and Meropenem. Staphylococcus lugdunensis Tetracycline MICROSCAN METHOD Sensitive Staphylococcus lugdunensis Trimethoprim/Sulfa MICROSCAN METHOD Sensitive Staphylococcus lugdunensis Vancomycin MICROSCAN METHOD Sensitive Kaity Fontaine MD MICROBIOLOGY - GENER AL ORDERABLES [facility] [place] [phone] documented in this encounter Visit Diagnoses Diagnosis Hematoma Contusion of unspecified site Hematoma of groin, subsequent encounter PAD (peripheral artery disease) Peripheral vascular disease, unspecified PVD (peripheral vascular disease) Peripheral vascular disease, unspecified Groin hematoma Contusion of abdominal wall documented in this encounter Administered Medications Inactive Administered Medications - up to 3 most recent administrations Medication Order MAR Action Action Date Dose Rate Site acetaminophen (TYLENOL) tablet 650 mg 650 mg, Oral, EVERY 4 HOURS PRN, Starting on Mon02/20/19 at 1738, Until Mon03/01/19 at 1808, Pain, Maximum dose of acetaminophen is 4000 mg from all sources in 24 hours., Routine Given 02/28/2019 8:33 PM EST 650 mg Given 02/28/2019 3:07 AM EST 650 mg Given 02/27/2019 10:28 PM EST 650 mg aspirin EC tablet 81 mg 81 mg, Oral, DAILY, First dose on Mon02/20/19 at 2045, Until Discontinued, Routine Given 03/01/2019 8:31 AM EST 81 mg Given 02/28/2019 8:10 AM EST 81 mg Given 02/27/2019 11:55 AM EST 81 mg carvedilol (COREG) tablet 1.56 mg 1.56 mg, Oral, 2 TIMES DAILY WITH MEALS, First dose on Mon02/20/19 at 2200, Until Discontinued, Hold for HR<60 or BP<100, Routine Given 03/01/2019 8:30 AM EST 1.56 mg Given 02/26/2019 6:05 PM EST 1.56 mg Given 02/26/2019 8:59 AM EST 1.56 mg citalopram (CeleXA) tablet 20 mg 20 mg, Oral, 2 TIMES DAILY, First dose on Mon02/20/19 at 2115, Until Discontinued, Routine Given 03/01/2019 8:3 1 AM EST 20 mg Given 02/28/2019 8:32 PM EST 20 mg Given 02/28/2019 8:09 AM EST 20 mg dextrose 10% infusion 250 mL, at 1,000 mL/hr, Intravenous, EVERY 30 MIN PRN, Starting on Mon02/20/19 at 2008, Until Meseret 02/28/19 at 1949, For BG 50-70 mg/dL: Oral treatment preferred:?? If able to drink, give 120 mL Juice or Regular (not diet) soda OR If NPO, give 15 gram glucose 40% oral gel massaged into buccal mucosa OR if unconscious or uncooperative, give 25 gram (250 mL) Dextrose 10% IV over 15 minutes per protocol OR, if no IV access, 1 mg Glucagon IM. For BG less than 50 mg/dL: Oral treatment preferred:?? If able to drink, give 240 mL Juice or Regular (not diet) soda OR If NPO, give 30 gram glucose 40% oral gel massaged in buccal mucosa OR if unconscious or uncooperative, give 25 gram (250 mL) Dextrose 10% IV over 15 minutes per protocol OR, if no IV access, 1 mg Glucagon IM. Recheck BG in 30 minutes. May repeat juice/soda, gel, dextrose or glucagon once per episode. For persistent hypoglycemia, consider longer-acting treatment for the duration of the active insulin. New Bag 02/27/2019 12:00 AM EST 250 mLs 1000 mL/hr dextrose 10% infusion 250 mL, at 1,000 mL/hr, Intravenous, EVERY 30 MIN PRN, Starting on Mon02/28/19 at 1948, Until Mon03/01/19 at 1808, For BG 50-70 mg/dL: Oral treatment preferred:?? If able to drink, give 120 mL Juice or Regular (not diet) soda OR If NPO, give 15 gram glucose 40% oral gel massaged into buccal mucosa OR if unconscious or uncooperative, give 25 gram (250 mL) Dextrose 10% IV over 15 minutes per protocol OR, if no IV access, 1 mg Glucagon IM. For BG less than 50 mg/dL: Oral treatment preferred:?? If able to drink, give 240 mL Juice or Regular (not diet) soda OR If NPO, give 30 gram glucose 40% oral gel massaged in buccal mucosa OR if unconscious or uncooperative, give 25 gram (250 mL) Dextrose 10% IV over 15 minutes per protocol OR, if no IV access, 1 mg Glucagon IM. Recheck BG in 30 minutes. May repeat juice/soda, gel, dextrose or glucagon once per episode. For persistent hypoglycemia, consider longer-acting treatment for the duration of the active insulin. docusate sodium (COLACE) capsule 100 mg 100 mg, Oral, 2 TIMES DAILY, First dose on Mon02/26/19 at 1245, Until Discontinued, Routine Given 02/28/2019 8:32 PM EST 100 mg Given 02/28/2019 8:09 AM EST 100 mg Given 02/27/2019 8:40 PM EST 100 mg glucagon (human recombinant) injection SolR 1 mg 1 mg, Intramuscular, EVERY 30 MIN PRN, Starting on Mon02/28/19 at 1948, Until Mon03/01/19 at 1808, Low blood sugar, For BG 50-70 mg/dL: Oral treatment preferred:?? If able to drink, give 120 mL Juice or Regular (not diet) soda OR If NPO, give 15 gram glucose 40% oral gel massaged into buccal mucosa OR if unconscious or uncooperative, give 25 gram (250 mL) Dextrose 10% IV over 15 minutes per protocol OR, if no IV access, 1 mg Glucagon IM. For BG less than 50 mg/dL: Oral treatment preferred:?? If able to drink, give 240 mL Juice or Regular (not diet) soda OR If NPO, give 30 gram glucose 40% oral gel massaged in buccal mucosa OR if unconscious or uncooperative, give 25 gram (250 mL) Dextrose 10% IV over 15 minutes per protocol OR, if no IV access, 1 mg Glucagon IM. Recheck BG in 30 minutes. May repeat juice/soda, gel, dextrose or glucagon once per episode. For persistent hypoglycemia, consider longer-acting treatment for the duration of the active insulin., Routine glucose (GLUTOSE) 40% oral gel 15-30 g, Buccal, EVERY 30 MIN PRN, Starting on Mon02/20/19 at 2008, Until Mon02/28/19 at 1949, Low blood sugar, For BG 50-70 mg/dL: Oral treatment preferred:?? If able to drink, give 120 mL Juice or Regular (not diet) soda OR If NPO, give 15 gram glucose 40% oral gel massaged into buccal mucosa OR if unconscious or uncooperative, give 25 gram (250 mL) Dextrose 10% IV over 15 minutes per protocol OR, if no IV access, 1 mg Glucagon IM. For BG less than 50 mg/dL: Oral treatment preferred:?? If able to drink, give 240 mL Juice or Regular (not diet) soda OR If NPO, give 30 gram glucose 40% oral gel massaged in buccal mucosa OR if unconscious or uncooperative, give 25 gram (250 mL) Dextrose 10% IV over 15 minutes per protocol OR, if no IV access, 1 mg Glucagon IM. Recheck BG in 30 minutes. May repeat juice/soda, gel, dextrose or glucagon once per episode. For persistent hypoglycemia, consider longer-acting treatment for the duration of the active insulin. 1 tube contains 15 grams of glucose (net weight of tube = 37.5 grams., Routine Given 02/22/2019 9:17 AM EST 15 g Given 02/21/2019 5:59 AM EST 15 g Given 02/21/2019 3:34 AM EST 15 g glucose (GLUTOSE) 40% oral gel 15-30 g, Buccal, EVERY 30 MIN PRN, Starting on Meseret 02/28/19 at 1948, Until Mon03/01/19 at 1808, Low blood sugar, For BG 50-70 mg/dL: Oral treatment preferred:?? If able to drink, give 120 mL Juice or Regular (not diet) soda OR If NPO, give 15 gram glucose 40% oral gel massaged into buccal mucosa OR if unconscious or uncooperative, give 25 gram (250 mL) Dextrose 10% IV over 15 minutes per protocol OR, if no IV access, 1 mg Glucagon IM. For BG less than 50 mg/dL: Oral treatment preferred:?? If able to drink, give 240 mL Juice or Regular (not diet) soda OR If NPO, give 30 gram glucose 40% oral gel massaged in buccal mucosa OR if unconscious or uncooperative, give 25 gram (250 mL) Dextrose 10% IV over 15 minutes per protocol OR, if no IV access, 1 mg Glucagon IM. Recheck BG in 30 minutes. May repeat juice/soda, gel, dextrose or glucagon once per episode. For persistent hypoglycemia, consider longer-acting treatment for the duration of the active insulin. 1 tube contains 15 grams of glucose (net weight of tube = 37.5 grams., Routine heparin (Porcine) subcutaneous injection 5,000 Units 5,000 Units, Subcutaneous, EVERY 8 HOURS SCHEDULED, First dose on Meseret 02/21/19 at 0930, Until Discontinued, Routine Given 03/01/2019 11:33 AM EST 5,000 Units Given 03/01/2019 4:50 AM EST 5,000 Units A bdominal Tissue Given 02/28/2019 8:32 PM EST 5,000 Units HYDROmorphone (DILAUDID) injection 0.2-0.4 mg 0.2-0.4 mg, Intravenous, EVERY 5 MIN PRN, Starting on Mon02/20/19 at 1813, Until Mon02/20/19 at 2151, Pain, Give 0.2 mg every 5 minutes PRN for mild to moderate pain (1-5) Give 0.4 mg every 5 minutes PRN for moderate to severe pain (6-10). Hold for respiratory rate less than 10 per minute. Maximum dose 4 mg over one hour. If multiple pain medications are ordered, start with hydromorphone or morphine and use fentanyl for breakthrough pain., PACU Recovery, Routine Given 02/20/2019 6:26 PM EST 0.4 mg Left Arm insulin lispro (humaLOG) for insulin pump refill 1 each 1 each, Alternative Route- Specify in Admin Instructions, ONCE PRN, Starting on Mon02/20/19 at 2100, Until Mon02/21/19 at 0751, Insulin Pump Refill, Patient to administer per own pump. Before discontinuing the pump, obtain an order and administer subcutaneous basal insulin. Note - only formulary insulin products insulin lispro (humaLOG) will be supplied by inpatient pharmacy to refill patient's own insulin pump. Alternative Route: For refilling of patient's own insulin pump reservoir. Insulin from vial must NOT be administered directly to the patient, and should only be used for refilling of the insulin pump reservoir. At the time that the patient's own insulin pump is refilled by the patient, the nurse must document providing '1 vial' to the patient using the New Syringe/Cartridge MAR Action. After patient has completed refill of pump reservoir, vial should be returned to medication cart. , Routine New Syringe/Cartridge 02/20/2019 10:07 PM EST 1 each insulin lispro (HumaLOG) VIAL injection 3-12 Units 3-12 Units, Subcutaneous, 4 TIMES DAILY BEFORE MEALS & NIGHTLY, First dose on Meseret 02/28/19 at 2100, Until Discontinued, CORRECTION BOLUS Resistant to insulin obese patient or TDD (total daily dose of all insulin needed to achieve glycemic control) greater than 60 units BG 140 - 160 Give 3 units BG 161 - 200 Give 6 units BG 201 - 240 Give 9 units BG greater than 240, give 12 units and recheck BG in 2 hours.If BG less than 240 after two hours, give no insulin and resume prior schedule. If BG remains greater than 240, repeat 12 units (no more than three times) & call for new basal insulin orders. DO NOT hold if NPO, unless specifically told to do so., Routine INSULIN PUMP (PATIENT OWN) Subcutaneous, ONCE PRN, Other, No Documentation Needed on JUN. This is Placeholder Medication., Starting on Mon02/20/19 at 2007, 1 dose, Until Mon03/01/19 at 1808, Patient to administer per own pump. Before discontinuing the pump, obtain an order and administer subcutaneous basal insulin. Document bolus doses, as reported by patient, in the Doc Flowsheet, under POC Glucose Comments (Insulin Pump Bolus (Units))., Medication Name: aspart (Novolog) levothyroxine (SYNTHROID) tablet 125 mcg 125 mcg, Oral, EVERY MORNING, First dose on Meseret 02/21/19 at 0600, Until Discontinued, Routine Given 03/01/2019 5:57 AM EST 125 mcg Given 02/28/2019 5:30 AM EST 125 mcg Given 02/27/2019 6:12 AM EST 125 mcg losartan (COZAAR) tablet 50 mg 50 mg, Oral, DAILY, First dose on Meseret 02/21/19 at 0900, Until Discontinued, Routine Given 02/28/2019 8:10 AM EST 50 mg Given 02/27/2019 8:34 AM EST 50 mg Given 02/26/2019 8:59 AM EST 50 mg melatonin tablet 3 mg 3 mg, Oral, NIGHTLY, First dose on 02/24/19 at 2200, Until Discontinued, Routine Given 02/28/2019 8:32 PM EST 3 mg Given 02/27/2019 10:28 PM EST 3 mg Given 02/26/2019 8:20 PM EST 3 mg ondansetron (ZOFRAN) injection 4-8 mg 4-8 mg, Intravenous, EVERY 8 HOURS PRN, Starting on Mon02/20/19 at 2056, Until Mon03/01/19 at 1808, Nausea, Start with 4mg and if ineffective in 30 minutes, give an additional 4mg ondansetron (ZOFRAN) tablet 4-8 mg 4-8 mg, Oral, EVERY 8 HOURS PRN, Starting on Mon02/20/19 at 2056, Until Mon03/01/19 at 1808, Nausea, Vomiting, If multiple antiemetics are ordered, use ondansetron first. PO Preferred. If patient unable to take PO, may give IV if ordered. May repeat times one in 45 minutes if ineffective. , Routine oxyCODONE (ROXICODONE) immediate release tablet 5 mg 5 mg, Oral, EVERY 4 HOURS PRN, Starting on Mon02/20/19 at 1738, Until Mon03/01/19 at 1808, Pain, Routine Given 02/26/2019 8:19 PM EST 5 mg Given 02/25/2019 10:10 PM EST 5 mg Given 02/23/2019 10:24 PM EST 5 mg pantoprazole (PROTONIX) tablet 40 mg 40 mg, Oral, DAILY, First dose on Meseret 02/21/19 at 0900, Until Discontinued, DO NOT CRUSH OR OPEN, Routine Given 03/01/2019 8:31 AM EST 40 mg Given 02/28/2019 8:10 AM EST 40 mg Given 02/27/2019 8:33 AM EST 40 mg piperacillin-tazobactam (ZOSYN) 3.375 g vial attach to sodium chloride 0.9% 50 mL Mini-Bag Plus 3.375 g, Intravenous, EVERY 8 HOURS, First dose on Mon02/20/19 at 1800, Until Discontinued, Administer over 4 Hours, Warning Vesicant/Irritant Medication Do not administer or Y-site with lactated ringers., Indication for (Active or Suspected): Skin/Skin Structure Bolus 02/22/2019 4:17 PM EST 3.375 g New Bag 02/22/2019 9:20 AM EST 3.375 g 12.5 mL/hr New Bag 02/21/2019 11:58 PM EST 3.375 g 12.5 mL/hr L eft Arm polyethylene glycol (MIRALAX) packet 17 g 17 g, Oral, DAILY, First dose on Mon02/26/19 at 1245, Until Discontinued, Routine Given 02/26/2019 12:39 PM EST 17 g simvastatin (ZOCOR) tablet 40 mg 40 mg, Oral, EVERY EVENING, First dose on Mon02/20/19 at 2230, Until Discontinued Given 02/28/2019 4:42 PM EST 40 mg Given 02/26/2019 6:05 PM EST 40 mg Given 02/25/2019 5:30 PM EST 40 mg sodium chloride 0.9% 500 mL IV bolus at 250 mL/hr, Intravenous, ONCE, 1 dose, On Meseret 02/28/19 at 0530 New Bag 02/28/2019 5:29 AM EST 250 mL/hr sodium chloride 0.9% 500 mL IV bolus at 250 mL/hr, Intravenous, ONCE, 1 dose, On Mon03/01/19 at 0730 New Bag 03/01/2019 9:10 AM EST 250 mL/hr vancomycin 1.25 g sodium in chloride 0.9% 250 mL 1,250 mg, Intravenous, at 200 mL/hr, EVERY 24 HOURS, First dose on Mon02/22/19 at 0930, Until Discontinued, Maximum infusion rate is 1 gram/hour. If flushing of the face, neck, upper body, arms, and/or back occurs decrease infusion rate by 50% to reduce the severity of symptoms. This medication may have an associated drug lab level. Please see MAR for scheduled level. Warning Vesicant/Irritant Medication , Routine New Bag 02/22/2019 10:21 AM EST 1,250 mg 200 mL/hr vancomycin 2 g in sodium chloride 0.9% 500 mL 2 g, Intravenous, at 250 mL/hr, ONCE, 1 dose, On Meseret 02/21/19 at 0930, Maximum infusion rate is 1 gram/hour. If flushing of the face, neck, upper body, arms, and/or back occurs decrease infusion rate by 50% to reduce the severity of symptoms. This medication may have an associated drug lab level. Please see MAR for scheduled level. Warning Vesicant/Irritant Medication , STAT New Bag 02/21/2019 1:08 PM EST 2 g 250 mL/hr documented in this encounter Active and Recently Administered Medications Times are shown in EST. Scheduled Medication Order 02/27/2019 02/28/2019 03/01/2019 aspirin EC tablet 81 mg 81 mg, Oral, DAILY, First dose on Mon02/20/19 at 2045, Until Discontinued, Routine 1155 (Given - Provider: Gogo Terrell RN - Comment: held for surgery)1718 (MAR Hold - Provider: Admin Adt - Reason: Transfer to a Procedural area)190 ([facility] Unhold - Provider: Admin Adt) 0810 (Given - Provider: Hilton Montez, TAMEKA) 0831 (Given - Provider: Toni Calabrese, TAMEKA) carvedilol (COREG) tablet 1.56 mg 1.56 mg, Oral, 2 TIMES DAILY WITH MEALS, First dose on Mon02/20/19 at 2200, Until Discontinued, Hold for HR<60 or BP<100, Routine 0832 (Not Given - Provider: Gogo Terrell RN - Reason: Order parameters not met)1700 (Not Given - Provider: Gogo Terrell RN - Reason: Order parameters not met)171 ([facility] Hold - Provider: Admin Adt - Reason: Transfer to a Procedural area)190 ([facility] Unhold - Provider: Admin Adt) 0800 (Not Given - Provider: Hilton Montez RN - Reason: Contraindicated - Comment: HR 58, auscultated)1700 (Not Given - Provider: Hilton Montez RN - Reason: Contraindicated - Comment: HR auscultated 59bpm) 0830 (Given - Provider: Toni Calabrese, TAMEKA) citalopram (CeleXA) tablet 20 mg 20 mg, Oral, 2 TIMES DAILY, First dose on Mon02/20/19 at 2115, Until Discontinued, Routine 0832 (Given - Provider: Gogo Terrell RN)171 ([facility] Hold - Provider: Admin Adt - Reason: Transfer to a Procedural area)190 ([facility] Unhold - Provider: Admin Adt)2040 (Given - Provider: Raj Saldana, TAMEKA) 0809 (Given - Provider: Hilton Montez RN)2031 (Given - Provider: Claudine Peace RN) 0831 (Given - Provider: Toni Calabrese, TAMEKA) docusate sodium (COLACE) capsule 100 mg 100 mg, Oral, 2 TIMES DAILY, First dose on Mon02/26/19 at 1245, Until Discontinued, Routine 0834 (Given - Provider: Gogo Terrell RN)171 ([facility] Hold - Provider: Admin Adt - Reason: Transfer to a Procedural area)190 ([facility] Unhold - Provider: Admin Adt)204 (Given - Provider: Raj Saldana RN) 0809 (Given - Provider: Hilton Montez, RN)2031 (Given - Provider: Claudine Peace, TAMEKA) 0831 (Not Given - Provider: Toni Calabrese RN - Reason: Patient/family refused) heparin (Porcine) subcutaneous injection 5,000 Units 5,000 Units, Subcutaneous, EVERY 8 HOURS SCHEDULED, First dose on Meseret 02/21/19 at 0930, Until Discontinued, Routine 0432 (Given - Provider: Raj Saldana RN)1154 (Given - Provider: Gogo Terrell RN)1718 ([facility] Hold - Provider: Admin Adt - Reason: Transfer to a Procedural area)1903 ([facility] Unhold - Provider: Admin Adt)204 (Given - Provider: Raj Saldana RN) 0307 (Given - Provider: Raj Saldana RN)1233 (Given - Provider: Hilton Montez, TAMEKA)2031 (Given - Provider: Claudine Peace, TAMEKA) 0450 (Given - Provider: Claudine Peace RN)1133 (Given - Provider: Toni Calabrese RN) insulin lispro (HumaLOG) VIAL injection 3-12 Units(Linked Group 1) 3-12 Units, Subcutaneous, 4 TIMES DAILY BEFORE MEALS & NIGHTLY, First dose on Meseret 02/28/19 at 2100, Until Discontinued, CORRECTION BOLUS Resistant to insulin obese patient or TDD (total daily dose of all insulin needed to achieve glycemic control) greater than 60 units BG 140 - 160 Give 3 units BG 161 - 200 Give 6 units BG 201 - 240 Give 9 units BG greater than 240, give 12 units and recheck BG in 2 hours.If BG less than 240 after two hours, give no insulin and resume prior schedule. If BG remains greater than 240, repeat 12 units (no more than three times) & call for new basal insulin orders. DO NOT hold if NPO, unless specifically told to do so., Routine 2100 (Not Given - Provider: Claudine Peace RN - Reason: Order parameters not met - Comment: see comment in chart, pt administered own insulin via pump.) 0730 (Not Given - Provider: Toni Calabrese RN - Reason: See comment - Comment: per patients own pump)1130 (Not Given - Provider: Toni Calabrese, TAMEKA - Reason: See comment - Comment: pt self administers) levothyroxine (SYNTHROID) tablet 125 mcg 125 mcg, Oral, EVERY MORNING, First dose on Meseret 02/21/19 at 0600, Until Discontinued, Routine 0612 (Given - Provider: Raj Saldana, TAMEKA)1718 ([facility] Hold - Provider: Admin Adt - Reason: Transfer to a Procedural area)1903 ([facility] Unhold - Provider: Admin Adt) 0530 (Given - Provider: Raj Saldana, TAMEKA) 0557 (Given - Provider: Claudine Peace, TAEMKA) losartan (COZAAR) tablet 50 mg (CANCELED) 50 mg, Oral, DAILY, First dose on Mon02/21/19 at 0900, Until Discontinued, Routine 0834 (Given - Provider: Gogo Terrell RN)171 ([facility] Hold - Provider: Admin Adt - Reason: Transfer to a Procedural area)190 ([facility] Unhold - Provider: Admin Adt) 0810 (Given - Provider: Hilton Montez, TAMEKA) melatonin tablet 3 mg 3 mg, Oral, NIGHTLY, First dose on Mon02/24/19 at 2200, Until Discontinued, Routine 171 ([facility] Hold - Provider: Admin Adt - Reason: Transfer to a Procedural area)190 ([facility] Unhold - Provider: Admin Adt)2228 (Given - Provider: Raj Saldana RN) 2031 (Given - Provider: Claudine Peace, TAMEKA) pantoprazole (PROTONIX) tablet 40 mg 40 mg, Oral, DAILY, First dose on Mon02/21/19 at 0900, Until Discontinued, DO NOT CRUSH OR OPEN, Routine 0833 (Given - Provider: Gogo Terrell RN)171 ([facility] Hold - Provider: Admin Adt - Reason: Transfer to a Procedural area)190 ([facility] Unhold - Provider: Admin Adt) 0810 (Given - Provider: Hilton Montez, TAMEKA) 0831 (Given - Provider: Toni Calabrese, TAMEKA) polyethylene glycol (MIRALAX) packet 17 g 17 g, Oral, DAILY, First dose on Mon02/26/19 at 1245, Until Discontinued, Routine 0900 (Not Given - Provider: Gogo E Gile, RN - Reason: NPO)1718 ([facility] Hold - Provider: Admin Adt - Reason: Transfer to a Procedural area)1903 ([facility] Unhold - Provider: Admin Adt) 0900 (Not Given - Provider: Hilton Montez RN - Reason: Patient/family refused) 0900 (Not Given - Provider: Toni Calabrese RN - Reason: Patient/family refused) simvastatin (ZOCOR) tablet 40 mg 40 mg, Oral, EVERY EVENING, First dose on Mon02/20/19 at 2230, Until Discontinued 1700 (Not Given - Provider: Gogo Terrell RN - Reason: Patient/family refused)1718 ([facility] Hold - Provider: Admin Adt - Reason: Transfer to a Procedural area)1903 ([facility] Unhold - Provider: Admin Adt) 1642 (Given - Provider: Hilton Montez RN) sodium chloride 0.9% 500 mL IV bolus (COMPLETED) at 250 mL/hr, Intravenous, ONCE, 1 dose, On M[place] 02/28/19 at 0530 0529 (New Bag - Provider: Raj Saldana RN)0729 (Stopped - Provider: Hilton Montez RN) sodium chloride 0.9% 500 mL IV bolus (COMPLETED) at 250 mL/hr, Intravenous, ONCE, 1 dose, On Mon03/01/19 at 0730 0910 (New Bag - Provider: Toni Calabrese RN)1110 (Stopped - Provider: Toni Calabrese RN) PRN Medication Order 02/27/2019 02/28/2019 03/01/2019 acetaminophen (TYLENOL) tablet 650 mg 650 mg, Oral, EVERY 4 HOURS PRN, Starting on Mon02/20/19 at 1738, Until Mon03/01/19 at 1808, Pain, Maximum dose of acetaminophen is 4000 mg from all sources in 24 hours., Routine 171 ([facility] Hold - Provider: Admin Adt - Reason: Transfer to a Procedural area)190 ([facility] Unhold - Provider: Admin Adt)2228 (Given - Provider: Raj Saldana RN) 0307 (Given - Provider: Raj Saldana, TAMEKA)203 (Given - Provider: Claudine Peace RN) dextrose 10% infusion (CANCELED)(Linked Group 2) 250 mL, at 1,000 mL/hr, Intravenous, EVERY 30 MIN PRN, Starting on Mon02/20/19 at 2007, Until Meseret 02/28/19 at 1949, For BG 50-70 mg/dL: Oral treatment preferred:?? If able to drink, give 120 mL Juice or Regular (not diet) soda OR If NPO, give 15 gram glucose 40% oral gel massaged into buccal mucosa OR if unconscious or uncooperative, give 25 gram (250 mL) Dextrose 10% IV over 15 minutes per protocol OR, if no IV access, 1 mg Glucagon IM. For BG less than 50 mg/dL: Oral treatment preferred:?? If able to drink, give 240 mL Juice or Regular (not diet) soda OR If NPO, give 30 gram glucose 40% oral gel massaged in buccal mucosa OR if unconscious or uncooperative, give 25 gram (250 mL) Dextrose 10% IV over 15 minutes per protocol OR, if no IV access, 1 mg Glucagon IM. Recheck BG in 30 minutes. May repeat juice/soda, gel, dextrose or glucagon once per episode. For persistent hypoglycemia, consider longer-acting treatment for the duration of the active insulin. 0000 (New Bag - Provider: Gogo Terrell RN)0015 (Due: Stopped - Provider: Gogo Terrell RN)1718 ([facility] Hold - Provider: Admin Adt - Reason: Transfer to a Procedural area)1903 ([facility] Unhold - Provider: Admin Adt) dextrose 10% infusion(Linked Group 3) 250 mL, at 1,000 mL/hr, Intravenous, EVERY 30 MIN PRN, Starting on M[place] 02/28/19 at 1948, Until Mon03/01/19 at 1808, For BG 50-70 mg/dL: Oral treatment preferred:?? If able to drink, give 120 mL Juice or Regular (not diet) soda OR If NPO, give 15 gram glucose 40% oral gel massaged into buccal mucosa OR if unconscious or uncooperative, give 25 gram (250 mL) Dextrose 10% IV over 15 minutes per protocol OR, if no IV access, 1 mg Glucagon IM. For BG less than 50 mg/dL: Oral treatment preferred:?? If able to drink, give 240 mL Juice or Regular (not diet) soda OR If NPO, give 30 gram glucose 40% oral gel massaged in buccal mucosa OR if unconscious or uncooperative, give 25 gram (250 mL) Dextrose 10% IV over 15 minutes per protocol OR, if no IV access, 1 mg Glucagon IM. Recheck BG in 30 minutes. May repeat juice/soda, gel, dextrose or glucagon once per episode. For persistent hypoglycemia, consider longer-acting treatment for the duration of the active insulin. glucagon (human recombinant) injection SolR 1 mg(Linked Group 3) 1 mg, Intramuscular, EVERY 30 MIN PRN, Starting on M[place] 02/28/19 at 1948, Until Mon03/01/19 at 1808, Low blood sugar, For BG 50-70 mg/dL: Oral treatment preferred:?? If able to drink, give 120 mL Juice or Regular (not diet) soda OR If NPO, give 15 gram glucose 40% oral gel massaged into buccal mucosa OR if unconscious or uncooperative, give 25 gram (250 mL) Dextrose 10% IV over 15 minutes per protocol OR, if no IV access, 1 mg Glucagon IM. For BG less than 50 mg/dL: Oral treatment preferred:?? If able to drink, give 240 mL Juice or Regular (not diet) soda OR If NPO, give 30 gram glucose 40% oral gel massaged in buccal mucosa OR if unconscious or uncooperative, give 25 gram (250 mL) Dextrose 10% IV over 15 minutes per protocol OR, if no IV access, 1 mg Glucagon IM. Recheck BG in 30 minutes. May repeat juice/soda, gel, dextrose or glucagon once per episode. For persistent hypoglycemia, consider longer-acting treatment for the duration of the active insulin., Routine glucose (GLUTOSE) 40% oral gel(Linked Group 3) 15-30 g, Buccal, EVERY 30 MIN PRN, Starting on [place] 02/28/19 at 1948, Until Mon03/01/19 at 1808, Low blood sugar, For BG 50-70 mg/dL: Oral treatment preferred:?? If able to drink, give 120 mL Juice or Regular (not diet) soda OR If NPO, give 15 gram glucose 40% oral gel massaged into buccal mucosa OR if unconscious or uncooperative, give 25 gram (250 mL) Dextrose 10% IV over 15 minutes per protocol OR, if no IV access, 1 mg Glucagon IM. For BG less than 50 mg/dL: Oral treatment preferred:?? If able to drink, give 240 mL Juice or Regular (not diet) soda OR If NPO, give 30 gram glucose 40% oral gel massaged in buccal mucosa OR if unconscious or uncooperative, give 25 gram (250 mL) Dextrose 10% IV over 15 minutes per protocol OR, if no IV access, 1 mg Glucagon IM. Recheck BG in 30 minutes. May repeat juice/soda, gel, dextrose or glucagon once per episode. For persistent hypoglycemia, consider longer-acting treatment for the duration of the active insulin. 1 tube contains 15 grams of glucose (net weight of tube = 37.5 grams., Routine INSULIN PUMP (PATIENT OWN) Subcutaneous, ONCE PRN, Other, No Documentation Needed on JUN. This is Placeholder Medication., Starting on Mon02/20/19 at 2007, 1 dose, Until Mon03/01/19 at 180, Patient to administer per own pump. Before discontinuing the pump, obtain an order and administer subcutaneous basal insulin. Document bolus doses, as reported by patient, in the Doc Flowsheet, under POC Glucose Comments (Insulin Pump Bolus (Units))., Medication Name: aspart (Novolog) 1717 ([facility] Hold - Provider: Admin Adt - Reason: Transfer to a Procedural area)1902 ([facility] Unhold - Provider: Admin Adt) ondansetron (ZOFRAN) injection 4-8 mg(Linked Group 4) 4-8 mg, Intravenous, EVERY 8 HOURS PRN, Starting on Mon02/20/19 at 2055, Until Mon03/01/19 at 1808, Nausea, Start with 4mg and if ineffective in 30 minutes, give an additional 4mg 1717 ([facility] Hold - Provider: Admin Adt - Reason: Transfer to a Procedural area)1902 ([facility] Unhold - Provider: Admin Adt) ondansetron (ZOFRAN) tablet 4-8 mg(Linked Group 4) 4-8 mg, Oral, EVERY 8 HOURS PRN, Starting on Mon02/20/19 at 2055, Until Mon03/01/19 at 1808, Nausea, Vomiting, If multiple antiemetics are ordered, use ondansetron first. PO Preferred. If patient unable to take PO, may give IV if ordered. May repeat times one in 45 minutes if ineffective. , Routine 1717 ([facility] Hold - Provider: Admin Adt - Reason: Transfer to a Procedural area)1903 ([facility] Unhold - Provider: Admin Adt) oxyCODONE (ROXICODONE) immediate release tablet 5 mg 5 mg, Oral, EVERY 4 HOURS PRN, Starting on Mon02/20/19 at 1738, Until Mon03/01/19 at 1808, Pain, Routine 1718 ([facility] Hold - Provider: Admin Adt - Reason: Transfer to a Procedural area)1903 ([facility] Unhold - Provider: Admin Adt) Linked Groups Order Group 1: POCT Fingerstick Glucose (CANCELED) Routine, 4 TIMES DAILY BEFORE MEALS & AT BEDTIME, First occurrence on Mon02/28/19 at 2200, Until Specified, Consider choosing FOUR TIMES A DAY BEFORE MEALS AND AT BEDTIME as frequency for: Patients who have a good hypoglycemia awareness: -Patients who are eating meals during the day and sleeping at night -Patient who are otherwise stable And insulin lispro (HumaLOG) VIAL injection 3-12 UnitsJump to med 3-12 Units, Subcutaneous, 4 TIMES DAILY BEFORE MEALS & NIGHTLY, First dose on Mon02/28/19 at 2100, Until Discontinued, CORRECTION BOLUS Resistant to insulin obese patient or TDD (total daily dose of all insulin needed to achieve glycemic control) greater than 60 units BG 140 - 160 Give 3 units BG 161 - 200 Give 6 units BG 201 - 240 Give 9 units BG greater than 240, give 12 units and recheck BG in 2 hours.If BG less than 240 after two hours, give no insulin and resume prior schedule. If BG remains greater than 240, repeat 12 units (no more than three times) & call for new basal insulin orders. DO NOT hold if NPO, unless specifically told to do so., Routine Group 2: glucose (GLUTOSE) 40% oral gel (CANCELED) 15-30 g, Buccal, EVERY 30 MIN PRN, Starting on Mon02/20/19 at 2008, Until Mon02/28/19 at 1949, Low blood sugar, For BG 50-70 mg/dL: Oral treatment preferred:?? If able to drink, give 120 mL Juice or Regular (not diet) soda OR If NPO, give 15 gram glucose 40% oral gel massaged into buccal mucosa OR if unconscious or uncooperative, give 25 gram (250 mL) Dextrose 10% IV over 15 minutes per protocol OR, if no IV access, 1 mg Glucagon IM. For BG less than 50 mg/dL: Oral treatment preferred:?? If able to drink, give 240 mL Juice or Regular (not diet) soda OR If NPO, give 30 gram glucose 40% oral gel massaged in buccal mucosa OR if unconscious or uncooperative, give 25 gram (250 mL) Dextrose 10% IV over 15 minutes per protocol OR, if no IV access, 1 mg Glucagon IM. Recheck BG in 30 minutes. May repeat juice/soda, gel, dextrose or glucagon once per episode. For persistent hypoglycemia, consider longer-acting treatment for the duration of the active insulin. 1 tube contains 15 grams of glucose (net weight of tube = 37.5 grams., Routine Or dextrose 10% infusion (CANCELED)Jump to med 250 mL, at 1,000 mL/hr, Intravenous, EVERY 30 MIN PRN, Starting on Mon02/20/19 at 2007, Until Mon02/28/19 at 194, For BG 50-70 mg/dL: Oral treatment preferred:?? If able to drink, give 120 mL Juice or Regular (not diet) soda OR If NPO, give 15 gram glucose 40% oral gel massaged into buccal mucosa OR if unconscious or uncooperative, give 25 gram (250 mL) Dextrose 10% IV over 15 minutes per protocol OR, if no IV access, 1 mg Glucagon IM. For BG less than 50 mg/dL: Oral treatment preferred:?? If able to drink, give 240 mL Juice or Regular (not diet) soda OR If NPO, give 30 gram glucose 40% oral gel massaged in buccal mucosa OR if unconscious or uncooperative, give 25 gram (250 mL) Dextrose 10% IV over 15 minutes per protocol OR, if no IV access, 1 mg Glucagon IM. Recheck BG in 30 minutes. May repeat juice/soda, gel, dextrose or glucagon once per episode. For persistent hypoglycemia, consider longer-acting treatment for the duration of the active insulin. Or glucagon (human recombinant) injection SolR 1 mg (CANCELED) 1 mg, Intramuscular, EVERY 30 MIN PRN, Starting on Mon02/20/19 at 2007, Until Mon02/28/19 at 1948, Low blood sugar, For BG 50-70 mg/dL: Oral treatment preferred:?? If able to drink, give 120 mL Juice or Regular (not diet) soda OR If NPO, give 15 gram glucose 40% oral gel massaged into buccal mucosa OR if unconscious or uncooperative, give 25 gram (250 mL) Dextrose 10% IV over 15 minutes per protocol OR, if no IV access, 1 mg Glucagon IM. For BG less than 50 mg/dL: Oral treatment preferred:?? If able to drink, give 240 mL Juice or Regular (not diet) soda OR If NPO, give 30 gram glucose 40% oral gel massaged in buccal mucosa OR if unconscious or uncooperative, give 25 gram (250 mL) Dextrose 10% IV over 15 minutes per protocol OR, if no IV access, 1 mg Glucagon IM. Recheck BG in 30 minutes. May repeat juice/soda, gel, dextrose or glucagon once per episode. For persistent hypoglycemia, consider longer-acting treatment for the duration of the active insulin., Routine Group 3: glucose (GLUTOSE) 40% oral gelJump to med 15-30 g, Buccal, EVERY 30 MIN PRN, Starting on [place] 02/28/19 at 1948, Until 03/01/19 at 1808, Low blood sugar, For BG 50-70 mg/dL: Oral treatment preferred:?? If able to drink, give 120 mL Juice or Regular (not diet) soda OR If NPO, give 15 gram glucose 40% oral gel massaged into buccal mucosa OR if unconscious or uncooperative, give 25 gram (250 mL) Dextrose 10% IV over 15 minutes per protocol OR, if no IV access, 1 mg Glucagon IM. For BG less than 50 mg/dL: Oral treatment preferred:?? If able to drink, give 240 mL Juice or Regular (not diet) soda OR If NPO, give 30 gram glucose 40% oral gel massaged in buccal mucosa OR if unconscious or uncooperative, give 25 gram (250 mL) Dextrose 10% IV over 15 minutes per protocol OR, if no IV access, 1 mg Glucagon IM. Recheck BG in 30 minutes. May repeat juice/soda, gel, dextrose or glucagon once per episode. For persistent hypoglycemia, consider longer-acting treatment for the duration of the active insulin. 1 tube contains 15 grams of glucose (net weight of tube = 37.5 grams., Routine Or dextrose 10% infusionJump to med 250 mL, at 1,000 mL/hr, Intravenous, EVERY 30 MIN PRN, Starting on [place] 02/28/19 at 1948, Until Mon03/01/19 at 1808, For BG 50-70 mg/dL: Oral treatment preferred:?? If able to drink, give 120 mL Juice or Regular (not diet) soda OR If NPO, give 15 gram glucose 40% oral gel massaged into buccal mucosa OR if unconscious or uncooperative, give 25 gram (250 mL) Dextrose 10% IV over 15 minutes per protocol OR, if no IV access, 1 mg Glucagon IM. For BG less than 50 mg/dL: Oral treatment preferred:?? If able to drink, give 240 mL Juice or Regular (not diet) soda OR If NPO, give 30 gram glucose 40% oral gel massaged in buccal mucosa OR if unconscious or uncooperative, give 25 gram (250 mL) Dextrose 10% IV over 15 minutes per protocol OR, if no IV access, 1 mg Glucagon IM. Recheck BG in 30 minutes. May repeat juice/soda, gel, dextrose or glucagon once per episode. For persistent hypoglycemia, consider longer-acting treatment for the duration of the active insulin. Or glucagon (human recombinant) injection SolR 1 mgJump to med 1 mg, Intramuscular, EVERY 30 MIN PRN, Starting on Mon02/28/19 at 1948, Until Mon03/01/19 at 1808, Low blood sugar, For BG 50-70 mg/dL: Oral treatment preferred:?? If able to drink, give 120 mL Juice or Regular (not diet) soda OR If NPO, give 15 gram glucose 40% oral gel massaged into buccal mucosa OR if unconscious or uncooperative, give 25 gram (250 mL) Dextrose 10% IV over 15 minutes per protocol OR, if no IV access, 1 mg Glucagon IM. For BG less than 50 mg/dL: Oral treatment preferred:?? If able to drink, give 240 mL Juice or Regular (not diet) soda OR If NPO, give 30 gram glucose 40% oral gel massaged in buccal mucosa OR if unconscious or uncooperative, give 25 gram (250 mL) Dextrose 10% IV over 15 minutes per protocol OR, if no IV access, 1 mg Glucagon IM. Recheck BG in 30 minutes. May repeat juice/soda, gel, dextrose or glucagon once per episode. For persistent hypoglycemia, consider longer-acting treatment for the duration of the active insulin., Routine Group 4: ondansetron (ZOFRAN) tablet 4-8 mgJump to med 4-8 mg, Oral, EVERY 8 HOURS PRN, Starting on Mon02/20/19 at 2056, Until Mon03/01/19 at 1808, Nausea, Vomiting, If multiple antiemetics are ordered, use ondansetron first. PO Preferred. If patient unable to take PO, may give IV if ordered. May repeat times one in 45 minutes if ineffective. , Routine Or ondansetron (ZOFRAN) injection 4-8 mgJump to med 4-8 mg, Intravenous, EVERY 8 HOURS PRN, Starting on Mon02/20/19 at 2056, Until Mon03/01/19 at 1808, Nausea, Start with 4mg and if ineffective in 30 minutes, give an additional 4mg documented in this encounter Care Teams Tube Coremaker Relationship Specialty Start Date End Date Shirley Yu MD [address] [place] [address] PCP - General 11/19/14 documented as of this encounter
--- OUTSIDE RECORDS SUMMARY | 2023-12-13 18:24 | XMS_ITS | Encounter Summary ---
[place] [address] Care Team Providers Care Mailmaster Name Role Phone Shirley Yu MD Primary Care Provider [phone] Reason for Referral * Diagnostic Test (Routine) - Closed Specialty Diagnoses / Procedures Referred By Dominik mcleod Referred To Contact Radiology Diagnoses Pulmonary granuloma Procedures CT Chest wo Contrast (Generic) César Escobar MD [facility] [place] [address] [facility] [place] [address] Referral ID Status Reason Start Date Expiration Date V isits Requested Visits Authorized [id number] Closed Specialty Service Requested 04/29/2019 10/27/2020 1 1 Reason for Visit * Reason Comments Follow-up Encounter Details Date Type Department Care Team (Late st Contact Info) Description 04/29/2019 1:00 PM EST Office [place] [address] César Escobar MD [facility] [place] [address] Pulmonary granuloma Social History Tobacco Use Types [...] Sign Reading Time Taken Comments Blood Pressure 152/59 04/29/2019 12:42 PM EST Pulse 61 04/29/2019 12:42 PM EST Temperature 36.5 ??C (97.7 ??F) 04/29/2019 1 2:42 PM EST Respiratory Rate 16 04/29/2019 12:4 2 PM EST Oxygen Saturation 99% 04/29/2019 12: 42 PM EST Inhaled Oxygen Concentration - - Weight 90.6 kg (199 lb 12.8 oz) 020 12:42 PM EST Height 170.4 cm (5' 7.09) 04/29/2019 1 2:42 PM EST Body Mass Index 31.21 04/29/2019 12:42 PM EST documented in this encounter Progress Notes * Sacha Vuong MD - 04/29/2019 1:00 PM EST Thoracic Surgery Attending Outpatient Follow Up Note MD Sacha Bryant MD [place] [address] FAX: Chief Complaint: Follow-up thoracoscopic right lower lobe wedge resections HPI: Ms. Snyder is a 58 y.o. woman referred to Thoracic Sugery for multiple lung nodules. We performed a thoracoscopic right lower lobe wedge resection on 06/20/18 which was complicated by transient hypoxia but she was discharged on postoperative day 3. She was last seen in thoracic surgery office on 07/09/2018. Last seen by pulmponary on 07/30/2018 to evaluate for underlying cause of granuloma. She is not smoking. She comes in today feeling reasonably well. Her pain is adequately controlled and she has only her baseline level of dyspnea. She denies f/c/n/v/SOB/CP. Medications: Current Outpatient Medications on File Prior to Visit Medication Sig Dispense Refill ??? dabigatran (PRADAXA) 150 mg Capsule Take [...] Diabetic Supplies, Miscellan. Misc Form faxed to [employer] for pump supplies. 100 each 12 ??? losartan (COZAAR) 100 mg Tablet Take 50 mg by mouth daily. ??? Magnesium 250 mg Tab Take by mouth daily. ??? aspirin 81 mg EC tablet Take 81 mg by mouth daily. ??? glucagon HCl (GLUCAGON, HUMAN RECOMBINANT,) 1 mg Recon Soln Inject 1 mg into the muscle as needed (as needed for hypoglycemia). (Patient not taking: Reported on 04/29/2019) 1 mL 3 ??? acetaminophen (TYLENOL) 500 mg Tablet Take 1 tablet by mouth every 4 hours as needed for Pain. (Patient not taking: Reported on 04/29/2019) 30 tablet 1 ??? oxyCODONE (ROXICODONE) 5 mg Tablet Take 1 tablet by mouth every 4 hours as needed for Pain (forbreakthrough pain). (Patient not taking: Reported on 04/29/2019) 20 tablet 0 ??? insulin lispro (HUMALOG) 100 unit/mL injection Inject 55-60 Units subcutaneously continuous. Via insulin pump No current facility-administered medications on file prior to visit. Physical Exam: BP 152/59 (Patient Position: Sitting) Pulse 61 Temp 36.5 ??C (97.7 ??F) (Temporal) Resp 16 Ht 170.4 cm (5' 7.09) Wt 90.6 kg (199 lb 12.8 oz) SpO2 99% BMI 31.21 kg/m?? General Appearance: Alert, cooperative, no distress, appears stated age Lungs: Clear to auscultation bilaterally, respirations unlabored, no wheezes, crackles or ronchi. Heart: Regular rate and rhythm, S1 and S2 normal, no murmur, rub, or gallop Abdomen: Soft, NTND Extremities: Extremities normal, atraumatic, no cyanosis or edema Wound/Incision: Clean, dry, intact, with evidence of good wound healing Imaging: I have independently visualized the following studies: CT Chest (04/29/19): nodule sizes stable since last CT Assessment: Jennifer Snyder is a 58 y.o. 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 She has recovered wel from surgery, and her residual nerve pain is slowly resolving. CT chest today demonstrates nodules but stable in size from previous image. No recurrence of pleural effusion. Plan: 1. 30 minutes of exercise daily at a minimum 2. RTC in [address] Chest without contrast 3. Call with any questions or if f/c/increased SOB/cough present Sacha Vuong MD 04/29/2019 * César Escobar MD - 04/29/2019 1:00 PM EST Thoracic surgery follow-up visit I saw and examined Ms. Snyder with Dr. Vuong and agree with his findings, assessment and plan. In brief: Chief complaint: Follow-up thoracoscopic right lower lobe wedge resection History of present illness: Ms. Snyder is a 58-year-old woman referred to me for multiple lung nodules. On June 20 2018 we resected 1 of these nodules in wedge fashion and granulomatous inflammation was identified. Because of her smoking history and the multiplicity of the nodules, I recommended ongoing follow-up and she comes in today having obtained a repeat CT scan. She has had numerous peripheral vascular issues in the last several months, but has no new pulmonary symptoms. She is not smoking. Current Outpatient Medications on File Prior to Visit Medication Sig Dispense Refill ??? dabigatran (PRADAXA) 150 mg Capsule Take [...] Diabetic Supplies, Miscellan. Misc Form faxed to [employer] for pump supplies. 100 each 12 ??? losartan (COZAAR) 100 mg Tablet Take 50 mg by mouth daily. ??? Magnesium 250 mg Tab Take by mouth daily. ??? aspirin 81 mg EC tablet Take 81 mg by mouth daily. ??? glucagon HCl (GLUCAGON, HUMAN RECOMBINANT,) 1 mg Recon Soln Inject 1 mg into the muscle as needed (as needed for hypoglycemia). (Patient not taking: Reported on 04/29/2019) 1 mL 3 ??? acetaminophen (TYLENOL) 500 mg Tablet Take 1 tablet by mouth every 4 hours as needed for Pain. (Patient not taking: Reported on 04/29/2019) 30 tablet 1 ??? oxyCODONE (ROXICODONE) 5 mg Tablet Take 1 tablet by mouth every 4 hours as needed for Pain (forbreakthrough pain). (Patient not taking: Reported on 04/29/2019) 20 tablet 0 ??? insulin lispro (HUMALOG) 100 unit/mL injection Inject 55-60 Units subcutaneously continuous. Via insulin pump No current facility-administered medications on file prior to visit. BP 152/59 (Patient Position: Sitting) Pulse 61 Temp 36.5 ??C (97.7 ??F) (Temporal) Resp 16 Ht 170.4 cm (5' 7.09) Wt 90.6 kg (199 lb 12.8 oz) SpO2 99% BMI 31.21 kg/m?? Physical exam: She appears comfortable. She is alert, oriented and in no distress. Her lungs are clear, her heart is regular and her abdomen is nontender nondistended. Imaging: A noncontrast chest CT was obtained which demonstrated stable subcentimeter bilateral lower lobe lung nodules Assessment: 58-year-old woman with multiple lung nodules and a biopsy demonstrating granulomatous inflammation. Because of the multiplicity of the nodules, I recommended continuing radiographic surveillance. Although the previous biopsy revealed only granulomatous inflammation, it is possible that 1 or more of the nodules could represent malignancy. She will return in 6 months for a noncontrast chest CT. Plan: Return to clinic in 6 months for noncontrast chest CT CÉSAR ESCOBAR MD documented in this encounter Plan of Treatment Upcoming Encounters Date Type Department Care Team (Late st Contact Info) Description 12/19/2023 1:00 PM EDT Tech Visit Vascular Lab at [place] [phone] Marguerite Macias 12/19/2023 3:00 PM EDT Office [place] [address] Gardenia Golden, LADARIUS [facility] [place] [address] 01/29/2024 1:[address] [place] [address] César Escobar MD [facility] [place] [address] 01/29/2024 2:30 PM EDT Office [place] [address] César Escobar MD [facility] [place] [address] documented as of this encounter Results * [...] fibrosis documented in this encounter Care Teams Mailmaster Relationship Specialty Start Date End Date Shirley Yu MD [address] [place] [address] PCP - General 11/19/14 documented as of this encounter
--- OUTSIDE RECORDS SUMMARY | 2023-12-13 18:24 | XMS_ITS | Encounter Summary ---
[place] [address] Care Team Providers Care Check Writer Name Role Phone Shirley Yu MD Primary Care Provider [phone] Encounter Details Date Type Department Care Team (Late Contact Info) Description 06/25/2019 Ancillary Procedure [place] [phone] Shirley Yu MD [address] [place] [id number] Social History Tobacco Use Types Packs/Day Years [...] PM EDT Tech [place] [phone] Marguerite Macias 12/19/2023 3:00 PM EDT Office [place] [address] Gardenia Golden APRN [facility] [place] [address] 01/29/2024 1:[address] [place] [address] César Escobar MD [facility] DR THORACIC SURGERY [place], [place] [id number] 01/29/2024 2:30 PM EDT Office [place] [phone] César Escobar MD [facility] [place] [address] documented as of this encounter Procedures Procedure Name Priority Date/Time Associated Diagnosis Comments FILM LIBRARY STORAGE ONLY DX SPINE Routine 06/25/2019 12:00 AM EDT documented in this encounter Results * Film Library- Storage Only DX Spine (06/25/2019 12:00 AM EDT) Narrative [facility] - 07/08/2019 11:26 AM EDT This exam is auto-finalizing. It's purpose is for storage only. Shirley Yu MD IMG FILM LIBRARY ORD ERABLES [place], [place] documented in this encounter Visit Diagnoses Not on filedocumented in this encounter Care Teams Check Writer Relationship Specialty Start Date End Date Shirley Yu MD [address] [place] [address] PCP - General 11/19/14 documented as of this encounter
--- OUTSIDE RECORDS SUMMARY | 2023-12-13 18:24 | XMS_ITS | Encounter Summary ---
[place] [address] Care Team Providers Care It Security Specialist Name Role Phone Shirley Yu MD Primary Care Provider [phone] Encounter Details Date Type Department Care Team (Late st Contact Info) Description 04/01/2019 1:00 PM EST Tech [place] [address] Bobo Nails, RVT PVD (peripheral vascular disease) Social History Tobacco [...] PM EDT Tech [place] [address] Marguerite Macias 12/19/2023 3:00 PM EDT Office [place] [address] Gardenia Golden APRN [facility] [place] [address] 01/29/2024 1:[address] [place] [address] César Escobar MD [facility] THORACIC SURGERY [place], [place] [phone] 01/29/2024 2:30 PM EDT Office [place] [address] César Escobar MD [facility] [address] documented as of this encounter Procedures Procedure Name Priority Date/Time Associated Diagnosis Comments ARTERIAL DUPLEX LEG UNILA Routine 04/01/2019 1:05 PM EST PVD (peripheral vascular disease) SHEFALI, LEGS, MULTIPLE LEVELS Routine 04/01/2019 1:05 PM EST PVD (peripheral vascular disease) documented in this encounter Results * SHEFALI, legs, multiple levels (04/01/2019 1:05 PM EST) VB Text Report Department: Vascular Surgery Lab Patient: [id number] (JENNIFER SNYDER) CPT: 71330 ICD10: I73.9 Referring Physician: NATHALY ROBBINS ?? Indications: s/p RIGHT fem-AK pop proximal [...] Dorsalis Pedis (Ankle) Artery ?102 ? 0.56 ??Luna-Biphasic ? Posterior Tibial (Ankle) Artery ??109 ? 0.60 ??Luna-Biphasic ? Great Toe ?65 ? 0.36 ?? [...] clinic following her exam. Electronically Signed by: JAXON MONTAÑO MD on 2019-04-01 02:19:02 PM VASCUBASE VB Text Report End of Report VASCUBASE 04/01/2019 1:05 PM EST Nathaly Robbins STRATEGIC INSIGHTS LEAD VASCULAR ORDERABLE S VASCUBASE * Arterial Duplex Leg, Unil (04/01/2019 1:05 PM EST) VB Text Report Department: Vascular Surgery Lab Patient: [id number] (JENNIFER SNYDER) CPT: 15366 ICD10: I73.9 Referring Physician: NATHALY ROBBINS ?? Indications: s/p redo RIGHT proximal anastomosis [...] clinic following her exam. Electronically Signed by: JAXON MONTAÑO MD on 2019-04-01 02:18:35 PM VASCUBASE VB Text Report End of Report VASCUBASE 04/01/2019 1:05 PM EST Nathaly Robbins STRATEGIC INSIGHTS LEAD VASCULAR ORDERABLE S VASCUBASE documented in this encounter Visit Diagnoses Diagnosis PVD (peripheral vascular disease) Peripheral vascular disease, unspecified documented in this encounter Care Teams It Security Specialist Relationship Specialty Start Date End Date Shirley Yu MD [address] [place] [address] PCP - General 11/19/14 documented as of this encounter
--- OUTSIDE RECORDS SUMMARY | 2023-12-13 18:25 | XMS_ITS | Encounter Summary ---
[place] [address] Care Team Providers Care Donor Recruiter Name Role Phone Shirley Yu MD Primary Care Provider [phone] Reason for Visit * Auth/Cert Specialty Diagnoses / Procedures Referred By Dominik mcleod Referred To Contact Diagnoses Groin hematoma right groin hematoma n/a n/a Procedures PRO BLOOD/LYMPH SYSTEM PROCEDURE EXPLORATION GROIN W\DRAIN & DEBRIDE LYMPHOCELE (WRVU *) Referral ID Status Reason Start Date Expiration Date Visits Re quested Visits Authorized [id number] 1 1 Encounter Details Date Type Department Care Team (Late st Contact Info) Description 02/25/2019 12:25 PM EST Anesthesia Event [place] [address] Gomez Fleming MD [facility] DR [place] [address] Anesthesia Record Procedure Summary Procedure Name Responsible Anesthesiologist Anesthesia Start Time Anesthesia Stop Time DEBRIDEMENT SKIN AND SUBCU, LOWER EXTREMITY (WRVU 1.01) (Right: Abdomen) Gomez Fleming MD 02/25/19 1225 02/25/19 1305 Events Date Time Event Comment 02/25/2019 1055 1225 AN Verify 1225 Start 1226 An Start Data 1227 An Induction 1228 An Intubation 1228 Anesthesia Ready 1240 Procedure Start 1253 Extubation/LMA Out 1253 an stop data 1305 Recovery or ICU Handoff Deidre ent care was transferred to the destination unit staff after review of the patient's medical history, current anesthetic/surgical status and plan, according to the Provider Handoff Checklist. 1305 Stop Meds Name Total Propofol 200 mg IV Lidocaine 100 mg Ondansetron 4 mg ePHEDrine 10 mg Ketamine 10 mg/mL 30 mg Dexmedetomidine 4 mcg Sodium Chloride 0.9% 50 mL * Agents Name O2 Air N2O Sevoflurane (et) O2 Auxiliary Flowmeter 1 * Blood No blood administrations on file. [...] cephalic vein (lateral side of arm), left; lwxi-bpd-xlvlov catheter system; 22 gauge, 1 in length; gerda john RN; distraction, intradermal injection; no longer indicated; 03/01/19; 0851 02/21/19 1225 by Gerda John, TAMEKA 03/01/19 0851 by Tayla De Jesus LNA (RETIRED) Peripheral IV Line - Single Lumen 02/21/19; 1245; cephalic vein (lateral side of arm), right; wccr-ood-tjdtya catheter system; 22 gauge, 1 in length; Gerda John RN; distraction, intradermal injection; 1; median vein (underside of arm), left; no longer indicated; 03/01/19; 0851 02/21/19 1245 by Gerda John RN 03/01/19 0851 by Tayla De Jesus LNA Supraglottic Mask Ventilation: Ea sy (1); LMA Type: iGel; LMA Size: 3; Inserted by: JEANNA Hicks; Removal Date: 02/25/19; Removal Time: 1253 02/25/19 1228 by Ashley Rico I FRONT DESK ADMIN 02/25/19 1253 by Ashley Rico CRNA NPWT 02/25/19; 1238; abdomen; LDA not present upon assessment; 02/27/19 02/25/19 1238 by Maureen Malone RN 02/27/19 0000 by Oliva Jaimes RN Wound 02/25/19; 1240; abdomen; 12/06/21 (LDA cleanup utility RA#[id number]); 1715 (LDA cleanup utility RA#[id number]) 02/25/19 1240 by Maureen Malone RN 12/06/21 1715 by Nuris Chacko documented in this encounter Social History Tobacco [...] OR Notes * Anesthesia Postprocedure Evaluation - Gomez Fleming MD - 02/25/2019 2:23 PM EST Department of Anesthesiology Post-procedure Note Patient: Jennifer Snyder Procedure Summary Date: 02/25/19 Room / Location: [facility] OR [facility] MAIN OR Anesthesia Start: 1225 Anesthesia Stop: 1305 Procedures: DEBRIDEMENT SKIN AND SUBCU, LOWER EXTREMITY (WRVU 1.01) (Right Abdomen) MODIFIER WOUND VAC (Right Abdomen) Diagnosis: (right groin wound infection) Surgeon: Kaity Fontaine MD Responsible Provider: Gomez Fleming MD Anesthesia Type: general ASA Status: 3 All Anesthesia Providers: Anesthesiologist: Gomez Fleming MD FRONT DESK ADMIN: Ashley Rico CRNA Vitals Value Taken Time BP 166/58 02/25/2019 2:00 PM Temp 36.6 ??C (97.9 ??F) 02/25/2019 1:43 PM Pulse 62 02/25/2019 2:00 PM Resp 12 02/25/2019 2:00 PM SpO2 95 % 02/25/2019 2:22 PM Pain Level 0 02/25/2019 1:30 PM Vitals shown include unvalidated device data. Patient Location: PACU/[facility] Level of Consciousness: Awake and Alert Pain Management: Satisfactory Analgesia PONV: None Cardiovascular Status: Hemodynamically Stable Respiratory Status: Stable Respiratory Status Postoperative Fluid Status: Intravascular EUvolemia Possible Anesthetic Complications: NONE apparent at time of evaluation Final Primary Anesthesia Type: General (The anesthetic type performed was the same as planned.) Comments: * Anesthesia Preprocedure Evaluation - Gomez Fleming MD - 02/25/2019 10:54 AM EST Pre-Anesthesia Evaluation for: Jennifer Snyder a [...] *) performed by Kaity Fontaine MD at [facility] MAIN OR ??? PRO BRONCHOSCOPY, DIAGNOSTIC N/A 06/21/2018 BRONCHOSCOPY, DIAGNOSTIC (WRVU 2.78) performed by César Escobar MD at [facility] MAIN OR ? ? PRO DEBRIDEMENT SUBCUTANEOUS TISSUE 20 SQCM/< Right 02/22/2019 DEBRIDEMENT SKIN AND SUBCU, LOWER EXTREMITY (WRVU 1.01) performed by Kaity Fontaine MD at [facility] EMMETT ? ? PRO EDG FLEXIBLE TRANSORAL ABLATE TUMOR POLYP/LESION W/DILATION & WIRE N/A 06/22/2016 EGD, TRANSORAL; WITH ABLATION OF TUMOR(S), POLYP(S), OR OTHER LESION(S) (WRVU 4.26) performed by Christos Donald MD at [facility] ENDOSCOPY ??? PRO INJECT NERV BLCK, INTERCOST, MULTPL Right 06/21/2018 NERVE BLOCK, INTERCOSTAL NERVE, MULTIPLE (WRVU 1.68) [facility] ??? PRO REOPERATION, BYPASS GRAFT Right 02/04/2019 @RE-OP FOR RE-DO LOWER EXTREMITY BYPASS GRAFT, >1 MONTH P\ ORIGINAL SURGERY, ADD-ON CODE (WRVU 3.08) performed by Kaity Fontaine MD at [facility] MAIN OR ??? PRO THORACOSCOPY WITH THERAPEUTIC WEDGE RESECTION INITIAL UNILAT Right 06/21/2018 @THORACOSCOPY, SURG; W/THERAPEUTIC WEDGE RESECTION, INIT UNILATERAL (WRVU 14.5) performed by César Escobar MD at [facility] MAIN OR ??? PRO THROMBOENDARTECTMY FEMORAL COMMON Right 02/04/2019 @ENDARTERECTOMY, COMMON FEMORAL W OR W/O PATCH GRAFT (WRVU 15.31) performed by Kaity Fontaine MD [facility] MAIN OR ??? PRO THROMBOENDARTECTMY FEMORAL DEEP Right 02/04/2019 @ENDARTERECTOMY, PROFUNDAPLASTY, DEEP, PROFUNDA FEMORIS W OR W/O PATCH GRAFT (WRVU 18.58) performedby Kaity Fontaine MD at [facility] MAIN OR ??? PRO TX EXTENSIVE RETINOPATHY, PHOTOCOAGULATION Left 2018 PRP OS - [place], [place] ??? PRO UPPER GI ENDOSCOPY, BIOPSY N/A 10/24/2016 UPPER GASTROINTESTINAL ENDOSCOPY,WITH BIOPSY SINGLE OR MULTIPLE (WRVU 2.49) performed by Agapito Parmar MD at [facility] ENDOSCOPY ??? PRO UPPER GI ENDOSCOPY, DIAGNOSTIC N/A 06/22/2016 EGD, UPPER GI ENDOSCOPY performed by Christos Donald MD at [facility] ENDOSCOPY ??? RETINAL LASER SURGERY Left [...] SFA stents ??? VASCULAR SURGERY 1009 Right SHOW CARD LETTERER-AK pop vein graft ??? VS ARTERIOGRAM LOWER EXTREMITY VASCULAR SURGERY 04/27/2018 VS Arteriogram Lower Extremity Vascular Surgery 04/27/2018 Kaity Fontaine MD [facility] INTERVENTIONL RAD ??? YAG CAPSULOTOMY Bilateral [...] home medications have been reviewed. Physical Exam: There were no vitals filed for this visit. There is no height or weight on file to calculate BMI. Airway Assessment: Mallampati: III TM distance: >3 [...] presents for serial wound debridement. 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 Plan discussed with FRONT DESK ADMIN. PAT Clinic Note documented in this encounter Plan of Treatment Upcoming Encounters Date Type Department Care Team (Late st Contact Info) Description 12/19/2023 1:00 PM EDT Tech [place] [phone] Marguerite Macias 12/19/2023 3:00 PM EDT Office [place] [address] Gardenia Golden, LADAR[facility] DR VASCULAR SURGERY [place], [place] [phone] 01/29/2024 1:[address] [place] [address] César Escobar MD [facility] [place] [address] 01/29/2024 2:30 PM EDT Office [place] [address] César Escobar MD [facility] [place] [address] documented as of this encounter Visit Diagnoses Not on filedocumented in this encounter Administered Medications Inactive Administered Medications - up to 3 most recent administrations Medication Order MAR Action Action Date Dose Rate Site dexmedetomidine (PRECEDEX) injection PRN, Starting on Mon02/25/19 at 1238, Until Mon02/25/19 at 1305, Anesthesia Intra-op, Routine Given 02/25/2019 12:38 PM EST 4 mcg ePHEDrine 5 mg/mL multi-dose injection Intravenous, PRN, Starting on Mon02/25/19 at 1241, Until Mon02/25/19 at 1305, Anesthesia Intra-op, Routine Given 02/25/2019 12:41 PM EST 10 mg ketamine (KETALAR) 10 mg/mL bolus injection (Anesthesia) PRN, Starting on Mon02/25/19 at 1234, Until Mon02/25/19 at 1305, Anesthesia Intra-op Given 02/25/2019 12:34 PM EST 30 mg lidocaine (PF) (XYLOCAINE) 100 mg/5 mL (2 %) injection Intravenous, PRN, Starting on Mon02/25/19 at 1227, Until Mon02/25/19 at 1305, Anesthesia Intra-op, Routine Given 02/25/2019 12:27 PM EST 100 mg ondansetron (ZOFRAN) injection Intravenous, PRN, Starting on Mon02/25/19 at 1245, Until Mon02/25/19 at 1305, Anesthesia Intra-op, Routine Given 02/25/2019 12:45 PM EST 4 mg propofol (DIPRIVAN) 10 mg/mL bolus injection (Anesthesia) Intravenous, PRN, Starting on Mon02/25/19 at 1227, Until Mon02/25/19 at 1305, Anesthesia Intra-op Given 02/25/2019 12:27 PM EST 200 mg sodium chloride 0.9% infusion CONTINUOUS PRN, Starting on Mon02/25/19 at 1225, Until Mon02/25/19 at 1305, Anesthesia Intra-op New Bag 02/25/2019 12:25 PM EST documented in this encounter Care Teams Donor Recruiter Relationship Specialty Start Date End Date Shirley Yu MD [address] [place] [address] PCP - General 11/19/14 documented as of this encounter
--- OUTSIDE RECORDS SUMMARY | 2023-12-13 18:25 | XMS_ITS | Encounter Summary ---
[place] [address] Care Team Providers Care Bookkeeper Receptionist Name Role Phone Shirley Yu MD Primary Care Provider [phone] Reason for Visit * Auth/Cert Specialty Diagnoses / Procedures Referred By Dominik mcleod Referred To Contact Diagnoses Groin hematoma right groin hematoma n/a n/a Procedures PRO BLOOD/LYMPH SYSTEM PROCEDURE EXPLORATION GROIN W\DRAIN & DEBRIDE LYMPHOCELE (WRVU *) Referral ID Status Reason Start Date Expiration Date Visits Re quested Visits Authorized [id number] 1 1 Encounter Details Date Type Department Care Team (Late st Contact Info) Description 02/25/2019 12:00 PM EST - 02/25/2019 1:12 PM EST Surgery [place] [phone] Kaity Fontaine MD [facility] [place] [address] DEBRIDEMENT SKIN AND SUBCU, LOWER EXTREMITY (WRVU 1.01) Social History Tobacco Use Types Packs/Day Years [...] Sign Reading Time Taken Comments Blood Pressure 152/69 02/25/2019 1:03 PM EST Pulse 63 02/25/2019 1:03 PM EST Temperature 36.5 ??C (97.7 ??F) 02/25/2019 1:03 PM ES T Respiratory Rate 16 02/25/2019 1:03 PM EST Oxygen Saturation 99% 02/25/2019 1:03 PM EST Inhaled Oxygen Concentration - - Weight 98.9 kg (218 lb 0.6 oz) 02/25/2019 6:00 A M EST Height 170.2 cm (5' 7) 02/20/2019 2:32 PM EST Body Mass Index 32.3 02/28/2019 7:42 AM [...] PM Bridget Dominguez MD; DILATION AND TEST, RUSSELL; TECHRUSSELL Ophthalmology at [facility] [place] [place] Arrive at: [facility] Area [phone] Future Orders Complete By Expires SHEFALI, legs, multiple levels [VAS8 Custom] 03/31/2019 (Approximate) 06/30/2019 Process Instructions: There is no in-house vascular carpenter/labor available on weeknights (5pm-8am), weekends, or holidays. IF THIS IS A REQUEST FOR AN EMERGENT STUDY DURING THOSE HOURS, please have the senior provider responsible for the patient page the Vascular Surgery Fellow/Senior Resident mortgage operations manager to discuss options. Scheduling Instructions: Questions: Indication for study/signs & symptoms: PAD Question to be answered: change in blood flow to feet Preferred location?: [facility] Arterial Duplex Leg, Unil [VAS32 Custom] 03/31/2019 (Approximate) 09/30/2019 Process Instructions: There is no in-house vascular carpenter/labor available on weeknights (5pm-8am), weekends, or holidays. IF THIS IS A REQUEST FOR AN EMERGENT STUDY DURING THOSE HOURS, please have the senior provider responsible for the patient page the Vascular Surgery Fellow/Senior Resident mortgage operations manager to discuss options. Scheduling Instructions: Questions: Indication for study/signs & symptoms: s/p RIGHT fem-pop proximal anastomosis redo, ? change Question to be answered: patency Laterality: Right Is there a RIGHT LOWER EXTREMITY graft?: Yes RIGHT Graft Location: fem pop Preferred location?: [facility] Referral to Home Health - at DISCHARGE [[id number] CPT(R)] As directed Process Instructions: Scheduling Instructions: Comments: DOCUMENTATION FOR VNA SERVICES (INCLUDING THOSE PATIENTS WITH MEDICARE COVERAGE REQUIRING HOME VNA SERVICES AND/OR HOSPICE SERVICES) PATIENT'S LOCATION: Jennifer Branch [address] [place] [id number] (home) Cell: No relevant phone numbers on file. Machine Worker's Name: self In discussion with the attending physician, it is certified that this patient is under their care and that they, or a Nurse Practitioner,Clinical Nurse specialist or Physician Paperboard Machine Operator who is working directly with them, had [...] for managing ADL's. HOME HEALTH CARE AGENCY: [facility] PHONE: [phone] FAX: [phone] Start of care: 24-48 hours post discharge [...] Shirley Yu MD [address] / [place] [address] All VNA agencies which cover the area of patient's residence have been reviewed, either verbally christo writing, and patient/family have chosen the home health care agency noted Questions: Agency name and contact information: [facility] Patient location post discharge: [facility] What services are requested: Registered [...] Diabetic Supplies, Miscellan. Misc Form faxed to [employer] for pump supplies. Quantity: 100 each Refills: [...] For any problems or questions please call [phone] BREONNA Hou, cooperative extension agent Nurse Clinician For issues on weeknights after 5pm and weekends please call [phone] and ask for the Vascular Fellow mortgage operations manager. documented in this encounter Discharge Instructions * Patient Instructions* Nathaly Victor, GUN STOCKER - 02/22/2019 7:43 AM EST Patient Instructions [...] For any problems or questions please call [phone] BREONNA Hou, cooperative extension agent Nurse Clinician For issues on weeknights after 5pm and weekends please call [phone] and ask for the Vascular Fellow mortgage operations manager. documented in this encounter Medications at Time [...] TWICE A DAY 98 07/26/2016 Diabetic Supplies, [employer]. Misc Form faxed to [employer] for pump supplies. 100 each 12 03/23/2015 [...] to follow up. D/c summary faxed to [facility] * Servando Nolan MD - 03/01/2019 11:03 [...] Labs: Recent Labs 03/01/19 0404 02/28/19 0306 02/27/19426 WBC 9.0 7.6 6.6 HGB 10.1* 10.0* 10.3* HCT 33.1* 32.5* 32.4* PLATELET 276 281 269 Recent Labs 03/01/19 0404 02/28/19 0306 02/27/19426 NA 140 135 138 K 4.8 4.6 [...] this morning -Vac change at bedside Anticoagulation: [facility] DVT Prophylaxis Antiplatelet: ASA Servando Nolan MD 03/01/2019 Pager: [phone] * Eva Gomes RN - 03/01/2019 10:39 AM EST The patient/insurance sales representative has been provided a list of Home Health Agencies/DME vendors which servetheir preferred geographic area. A letter describing our affiliations was reviewed with them and they were educated about their right to choose where referrals are placed. Patient requests referral to: [facility] Expected date of discharge: 03/01. Referral routed to the Leather Colorer for matching with agency/vendor and to provide any required information. * Arturo Castro - 03/01/2019 3:54 AM EST Respiratory Therapy NIV Note NIV Settings: NIV Mode: CPAP PEEP/CPAP (cm H2O): 12 cm H20 NIV Measurements: Resp: 16 Mve: 7 Leak (L/min): 34 L/min Vte: 427 SpO2: 95 % Laboratory: Lab Results Component Value Date/Time PHART 7.35 02/04/2019 03:26 PM [id number] 39 02/04/2019 03:26 PM PO2ART 82 (L) 02/04/2019 03:26 PM [id number] 21.3 02/04/2019 03:26 PM BEART -4.6 (L) [...] with any needs Arturo Castro * Meeta Cooney, RD - 02/28/2019 4:41 PM EST Nutrition [...] up while inpatient MARY CHUA Beeper #: [phone] * Nathaly Victor APRN - 02/28/2019 7:09 AM EST Vascular Surgery [...] well perfused ?? Labs: Recent Labs 02/28/19 03002/27/1942602/26/19 0443 WBC 7.6 6.6 6.8 HGB 10.0* 10.3* 10.9* HCT 32.5* 32.4* 34.1* PLATELET 281 269 311 Recent Labs 02/28/19 03002/27/197 02/26/19 0443 NA 135 138 139 K [...] mazariegos -vac change tomorrow at bedside Anticoagulation: [facility] DVT Prophylaxis Antiplatelet: ASA Nathaly Victor APRN 02/28/2019 Pager: [phone] * NeerajrArturo - 02/28/2019 4:06 AM EST Respiratory Therapy NIV Note NIV Settings: HOME CPAP NIV Mode: CPAP PEEP/CPAP (cm H2O): 12 cm H20 NIV Measurements: Resp: 16 Mve: 7 Leak (L/min): 34 L/min Vte: 427 SpO2: 96 % Laboratory: Lab Results Component Value Date/Time PHART 7.35 02/04/2019 03:26 PM [id number] 39 02/04/2019 03:26 PM PO2ART 82 (L) 02/04/2019 03:26 PM LQC6GEQ 21.3 02/04/2019 03:26 PM BEART -4.6 (L) [...] Help with home cpap when needed Arturo Gonzalez Mouser * Milton Grider MD - 02/27/2019 9:29 PM EST Vascular Surgery Post Op Check Jennifer Branch is a 58 y.o. female s/p R groin I&D and wound vac change Subjective: No nausea/vomiting, chest pain, SOB, pain well controlled, offers no complaints. Tolerating PO liquids and solids. Mazariegos in place. Objective: Temp: [36.2 ??C (97.2 ??F)-36.8 ??C (98.2 ??F)] Heart Rate: [60-63] Resp: [9-] BP: (113-147)/(52-64) SpO2: [92 %-100 %] Heart [...] and well perfused ?? Labs: Recent Labs 02/27/19 0427 02/26/19 0443 02/25/19 0334 WBC 6.6 6.8 6.5 HGB 10.3* 10.9* 10.4* HCT 32.4* 34.1* 33.3* PLATELET 269 311 322 Recent Labs 02/27/19 0427 02/26/19 0443 02/25/19 0334 NA 138 139 [...] change today -D/c mazariegos after procedure Anticoagulation: [facility] DVT Prophylaxis Antiplatelet: SANJIV Nolan MD 02/27/2019 Pager: [phone] * Eva Gomes RN - 02/26/2019 10:19 [...] VAC Therapy Insurance auth faxed back to [facility]. Ready for order picker from distribution on Monday. [facility] ordered for wound vac changes. Confirmed availability with Angelina from [facility] . Care Management will continue to monitor progress, follow for continuity of care, and assist with discharge planning. Neurology Physician: Eva Gomes Pager [phone] * Nathaly Victor APRN - 02/26/2019 7:52 [...] and well perfused ?? Labs: Recent Labs 02/26/1944202/25/19 0334 02/24/19 0352 WBC 6.8 6.5 6.5 HGB 10.9* 10.4* 10.6* HCT 34.1* 33.3* 33.9* PLATELET 311 322 316 Recent Labs 02/26/1944202/25/19 0334 02/24/19 0352 NA 139 140 141 [...] change tomorrow -NPO after MN tonight. Anticoagulation: H DVT Prophylaxis Antiplatelet: SANJIV Victor APRN 02/26/2019 Pager: [phone] * Brielle Solano RN - 02/25/2019 1:28 [...] incase patent goes home with vac. The patient/insurance sales representative has been provided a list of Home Health Agencies/DME vendors which servetheir preferred geographic area. A letter describing our affiliations was reviewed with them and they were educated about their right to choose where referrals are placed. Patient requests referral to : [facility] for wound vac [facility] Expected date of discharge: 1-2 days. Referral routed to the Leather Colorer for matching with agency/vendor and to provide any required information. ICare Management will continue to monitor progress, follow for continuity of care, and assist with discharge planning. Neurology Physician: Eva Gomes Pager [phone] * Nathaly Victor APRN - 02/25/2019 11:04 [...] diet (Give Meds) for OR today. Anticoagulation: [facility] DVT Prophylaxis Antiplatelet: ASA Nathaly Victor APRN 02/25/2019 Pager: [phone] * Nathaly Victor APRN - 02/25/2019 7:09 [...] diet (Give Meds) for OR today. Anticoagulation: [facility] DVT Prophylaxis Antiplatelet: SANJIV Victor APRN 02/25/2019 Pager: [phone] S * Tamiko De La O RN - [...] - NPO at midnight -Carb Control diet / CHO counting level 2 Anticoagulation: [facility] DVT Prophylaxis Antiplatelet: ASA Servando Nolan MD 02/23/2019 Pager: [phone] * Servando Nolan MD - 02/23/2019 11:58 [...] changed Monday in OR -Carb Control diet 60/60/75 CHO counting level 2 Anticoagulation: [facility] DVT Prophylaxis Antiplatelet: SANJIV Nolan MD 02/23/2019 Pager: [phone] * Vinay Celeste RN - 02/22/2019 5:42 [...] up cultures -to OR today -NPO Anticoagulation: [facility] DVT Prophylaxis Antiplatelet: SANJIV Victor APRN 02/22/2019 Pager: [phone] * Jessica Maria RCP - 02/22/2019 3:41 [...] for washout -NPO after midnight tonight Anticoagulation: [facility] DVT Prophylaxis Antiplatelet: SANJIV Victor APRN 02/21/2019 Pager: [phone] * Clinton Pierre RRT - 02/21/2019 12:22 [...] ??C (98.2 ??F)] Heart Rate: [60-70] Resp: [11-19] BP: (117-170)/(48-77) SpO2: [94 %-100 %] Heart [...] hospital and thus didnot bring extra. Vascular international trade manager Dr. Marni mckeon. [address] Dr Grider to [...] file Gets together: Not on file Attends temple service: Not on file Active member of [...] Diabetic Supplies, Miscellan. Misc Form faxed to [employer] for pump supplies. 100 each 12 ??? [...] MD, MS Vascular surgery fellow Service pager [phone] documented in this encounter Miscellaneous Notes * [...] assist Surveillance [continuous indirect monitoring]: Hourly rounding, VINCE Ma at bedside, call leggett within reach. Goal: [...] You More Personalized Care? none -- -- 02/26/191740 Individualization Patient Specific Goals -- Patient Specific [...] Appropriate) 02/28/19 1527 Interdisciplinary Rounds/Family Conf Participants patient;family;nursing;porter sample case * Plan of Care - Hilton Montez, [...] Appropriate) 02/25/19 175 Interdisciplinary Rounds/Family Conf Participants porter sample case;physical therapy;physician;nursing Problem: Skin Integrity Impairment, Risk/Actual (Adult) [...] Jensen MD - 02/27/2019 6:20 PM EST [facility] [place] [place] Operative Note Patient Name: Jennifer Branch : [id number] MR#: [id number] Case Date: 02/27/2019 Surgeon: Surgeon(s) and Role: [...] independent Surveillance [continuous indirect monitoring]: Masimo, purposeful rounding Patient-specific fall prevention interventions for sensory deficits provided, if applicable: [X] Yes CPG GOAL OUTCOME EVALUATION: * Plan of Care - Raj Saldana RN - 02/27/2019 4:57 AM EST Problem: Patient Care Overview Goal: Plan of Care Review Outcome: Ongoing (Interventions Implemented as Appropriate) 02/25/19 1756 02/26/192029 Coping/Psychosocial Plan Of Care Reviewed With -- patient Plan of Care Review Progress progress toward functional goals as expected -- OUTCOME EVALUATION NOTE: OUTCOME SUMMARY: Patient rested between care this shift. ??No acute events overnight. A&O x4. ??Bradycardic intermittently; otherwise vital signs stable. ??CPAP worn throughout the night for MANIHS. ??Pain controlled with PRN pain medications (see [...] Ongoing (Interventions Implemented as Appropriate) 02/25/19 0353 02/26/192029 Restraint Interventions Safety Promotion/Fall Prevention -- activity [...] Appropriate) 02/25/19 1753 Interdisciplinary Rounds/Family Conf Participants porter sample case;physical therapy;physician;nursing Problem: Skin Integrity Impairment, Risk/Actual (Adult) [...] (Interventions Implemented as Appropriate) 02/25/19 1756 02/26/19 0722 Coping/Psychosocial Plan Of Care Reviewed With -- [...] sign off. Ayo Carbone PT, DPT Pager [phone] Inpatient Rehabilitation * Plan of Care - [...] *) performed by Kaity Fontaine MD at [facility] MAIN OR ??? PRO BRONCHOSCOPY, DIAGNOSTIC N/A 06/21/2018 BRONCHOSCOPY, DIAGNOSTIC (WRVU 2.78) performed by César Escobar MD at [facility] MAIN OR ? ? PRO DEBRIDEMENT SUBCUTANEOUS TISSUE 20 SQCM/< Right 02/22/2019 DEBRIDEMENT SKIN AND SUBCU, LOWER EXTREMITY (WRVU 1.01) [facility] ? PRO DEBRIDEMENT SUBCUTANEOUS TISSUE 20 SQCM/< Right 02/25/2019 DEBRIDEMENT SKIN AND SUBCU, LOWER EXTREMITY (WRVU 1.01) performed by Kaity Fontaine MD at [facility] EMMETT ? ? PRO EDG FLEXIBLE TRANSORAL ABLATE TUMOR POLYP/LESION W/DILATION & WIRE N/A 06/22/2016 EGD, TRANSORAL; WITH ABLATION OF TUMOR(S), POLYP(S), OR OTHER LESION(S) (WRVU 4.26) performed by Christos Donald MD at [facility] ENDOSCOPY ??? PRO INJECT NERV BLCK, INTERCOST, MULTPL Right 06/21/2018 NERVE BLOCK, INTERCOSTAL NERVE, MULTIPLE (WRVU 1.68) [facility] ??? PRO REOPERATION, BYPASS GRAFT Right 02/04/2019 @RE-OP FOR RE-DO LOWER EXTREMITY BYPASS GRAFT, >1 MONTH P\ ORIGINAL SURGERY, ADD-ON CODE (WRVU 3.08) performed by Kaity Fontaine MD at [facility] MAIN OR ??? PRO THORACOSCOPY WITH THERAPEUTIC WEDGE RESECTION INITIAL UNILAT Right 06/21/2018 @THORACOSCOPY, SURG; W/THERAPEUTIC WEDGE RESECTION, INIT UNILATERAL (WRVU 14.5) performed by César Escobar MD at [facility] MAIN OR ??? PRO THROMBOENDARTECTMY FEMORAL COMMON Right 02/04/2019 @ENDARTERECTOMY, COMMON FEMORAL W OR W/O PATCH GRAFT (WRVU 15.31) performed by Kaity Fontaine MD [facility] MAIN OR ??? PRO THROMBOENDARTECTMY FEMORAL DEEP Right 02/04/2019 @ENDARTERECTOMY, PROFUNDAPLASTY, DEEP, PROFUNDA FEMORIS W OR W/O PATCH GRAFT (WRVU 18.58) performedby Kaity Fontaine MD at [facility] MAIN OR ??? PRO TX EXTENSIVE RETINOPATHY, PHOTOCOAGULATION Left 2017 PRP OS - [place] ??? PRO UPPER GI ENDOSCOPY, BIOPSY N/A 10/24/2016 UPPER GASTROINTESTINAL ENDOSCOPY,WITH BIOPSY SINGLE OR MULTIPLE (WRVU 2.49) performed by Agapito Parmar MD at [facility] ENDOSCOPY ??? PRO UPPER GI ENDOSCOPY, DIAGNOSTIC N/A 06/22/2016 EGD, UPPER GI ENDOSCOPY performed by Christos Donald MD at [facility] ENDOSCOPY ??? RETINAL LASER SURGERY Left 01/20/2012 OS ??? RETINAL LASER SURGERY Left 03/02/2012 OS ??? RETINAL LASER SURGERY Left 08/10/2012 OS ??? RETINAL LASER SURGERY Right 09/28/2012 OD ??? RETINAL LASER SURGERY Right 10/26/2012 OD ??? RETINAL LASER SURGERY Right 02/15/2013 PRP OD - Dr Vega ??? RETINAL LASER SURGERY Left 05/22/2015 PRP OS - [facility] ??? VASCULAR SURGERY 2001 Left CEA ??? VASCULAR SURGERY 2006 Left com iliac stent, R SFA stents ??? VASCULAR SURGERY 1009 Right FLAT MACHINE CUTTER-AK pop vein graft ??? VS ARTERIOGRAM LOWER EXTREMITY VASCULAR SURGERY 04/27/2018 VS Arteriogram Lower Extremity Vascular Surgery 04/27/2018 Kaity Fontaine MD [facility] INTERVENTIONL RAD ??? YAG CAPSULOTOMY Bilateral [...] well. She has had no falls at [facility]. Precautions/Special Considerations: insulin pump, groin incision, [...] and measurable assessment of functional outcome. Pager: [phone] DEX MEDELLIN OT 02/26/2019 Occupational Therapy Rehabilitation [...] Appropriate) 02/25/19 1753 Interdisciplinary Rounds/Family Conf Participants porter sample case;physical therapy;physician;nursing Problem: Skin Integrity Impairment, Risk/Actual (Adult) [...] (Interventions Implemented as Appropriate) 02/25/19 0749 02/25/19 2696 Coping/Psychosocial Plan Of Care Reviewed With patient [...] Wall MD - 02/25/2019 12:28 PM EST [facility] [place] [place] Operative Note Patient Name: Jennifer Branch : [id number] MR#: [id number] Case Date: 02/25/2019 Surgeon: Surgeon(s) and Role: [...] Skin Interventions Skin Protection -- adhesive use limited;eeqi-dy-kauarv areas padded;transparent dressing maintained;tubing/devices free from skin [...] care. Outcome: Ongoing (Interventions Implemented as Appropriate) 02/25/19352 Skin Integrity Impairment, Risk/Actual (Adult) Skin Integrity/Wound [...] Review Outcome: Ongoing (Interventions Implemented as Appropriate) 02/23/19163302/23/191929 Coping/Psychosocial Plan Of Care Reviewed With -- [...] (Interventions Implemented as Appropriate) 02/21/19 1544 02/23/19 163 Individualization Patient Specific Goals -- fast recovery [...] Mazariegos, minimal assit Surveillance [continuous indirect monitoring]: gordy Patient-specific fall prevention interventions for sensory deficits [...] Handling Outcome: Ongoing (Interventions Implemented as Appropriate) 02/22/1950902/22/19 0830 02/22/19 1632 Restraint Interventions Safety Promotion/Fall [...] toward outcome * Op Note - Kaity Fontaine MD - 02/22/2019 4:03 PM EST [facility] [place] [place] Operative Note Patient Name: Jennifer Branch : [id number] MR#: [id number] Case Date: 02/22/19 Surgeon: Surgeon(s) and Role: [...] of the dressing was changed. Wound wasleft DON on the top, closed on the bottom, [...] assist with ADLs Surveillance [continuous indirect monitoring]: Gordy Patient-specific fall prevention interventions for sensory deficits [...] Admission: ??? Groin hematoma [place] [facility] [place] Patient receiving hospital care under IPI- SDP Admission (IP) status. Admission order reviewed. 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 Waiting for report from vascular. dam worker/Pedorthist will continue to follow patient???s progress and remain available if situation changes for coordination of care, psychosocial support and/or discharge planning. Eva Gomes, RN Pager [phone] * Consult Note - Loretta Barkley RPH - 02/21/2019 9:27 AM EST Clinical Pharmacist Note - VancFD Jennifer Branch [id number] 1960 Jennifer Branch is a 58 y.o. [...] have. Alternately,during off-hours (9p-7a) you may call [phone] to contact a pharmacist. Loretta Barkley RPH [...] cathed at 0330 for 800. D/t void [id number]. CPAP on for MANISH. Pt using own [...] Quijano MD - 02/20/2019 5:31 PM EST [facility] [place] [place] Operative Note Patient Name: Jennifer Branch : [id number] MR#: [id number] Case Date: 02/20/2019 Surgeon: Surgeon(s) and Role: [...] room in stable condition. Infection Bundle used? zosyn Attestation: Case Date: 02/20/2019 Zenobia Quijano MD [...] PM EDT Tech [place] [address] Marguerite Macias 12/19/2023 3:00 PM EDT Office Visit [place] [phone] Gardenia Golden APRN [facility] [place] [address] 01/29/2024 1:[address] [place] [address] César Escobar MD [facility] [place] [address] 01/29/2024 2:30 PM EDT Office Visit [place] [phone] César Escobar MD [facility] [place] [address] documented as of this encounter Procedures Procedure Name Priority Date/Time Associated Diagnosis Comments POCT GLUCOSE Routine 03/01/2019 11:31 AM EST POCT GLUCOSE Routine 03/01/2019 8:27 AM EST POCT GLUCOSE Routine 03/01/2019 4:04 AM EST BMP W/FASTING GLUCOSE Routine 03/01/2019 4:04 AM EST HEMOGRAM Routine 03/01/2019 4:04 AM EST DIFFERENTIAL, AUTOMATED Routine 03/01/2019 4:04 AM EST HC VENIPUNCTURE Routine 03/01/2019 4:04 AM EST POCT GLUCOSE Routine 03/01/2019 12:12 AM EST POCT GLUCOSE Routine 02/28/2019 8:01 PM EST BMP W/FASTING GLUCOSE Routine 02/28/2019 3:06 AM EST HEMOGRAM Routine 02/28/2019 3:06 AM EST DIFFERENTIAL, AUTOMATED Routine 02/28/2019 3:06 AM EST HC VENIPUNCTURE Routine 02/28/2019 3:06 AM EST BMP W/FASTING GLUCOSE Routine 02/27/2019 4:27 AM EST HEMOGRAM Routine 02/27/2019 4:27 AM EST DIFFERENTIAL, AUTOMATED Routine 02/27/2019 4:27 AM EST HC CBC,PLT & AUTO DIFF Routine 02/27/2019 4:27 AM EST BMP W/FASTING GLUCOSE Routine 02/26/2019 4:43 AM EST HEMOGRAM Routine 02/26/2019 4:43 AM EST DIFFERENTIAL, AUTOMATED Routine 02/26/2019 4:43 AM EST HC CBC,PLT & AUTO DIFF Routine 02/26/2019 4:43 AM EST MODIFIER WOUND VAC 02/25/2019 12 :23 PM EST right groin wound infection Debridement, Skin, Sub-Q Tissue (36534) 02/25/2019 12:23 PM EST right groin wound infection BMP W/FASTING GLUCOSE Routine 02/25/2019 3:34 AM EST HEMOGRAM Routine 02/25/2019 3:34 AM EST DIFFERENTIAL, AUTOMATED Routine 02/25/2019 3:34 AM EST HC CBC,PLT & AUTO DIFF Routine 02/25/2019 3:34 AM EST DEBRIDEMENT SKIN AND SUBCU, LOWER EXTREMITY Routine 02/24/2019 3:28 PM EST BMP W/FASTING GLUCOSE Routine 02/24/2019 3:52 AM EST HEMOGRAM Routine 02/24/2019 3:52 AM EST DIFFERENTIAL, AUTOMATED Routine 02/24/2019 3:52 AM EST HC VENIPUNCTURE Routine 02/24/2019 3:52 AM EST POCT GLUCOSE Routine 02/23/2019 3:43 PM EST BMP W/FASTING GLUCOSE Routine 02/23/2019 3:22 AM EST HEMOGRAM Routine 02/23/2019 3:22 AM EST DIFFERENTIAL, AUTOMATED Routine 02/23/2019 3:22 AM EST HC CBC,PLT & AUTO DIFF Routine 02/23/2019 3:22 AM EST POCT GLUCOSE Routine 02/22/2019 8:57 AM EST BMP W/FASTING GLUCOSE Routine 02/22/2019 3:41 AM EST HEMOGRAM Routine 02/22/2019 3:41 AM EST DIFFERENTIAL, AUTOMATED Routine 02/22/2019 3:41 AM EST HC CBC,PLT & AUTO DIFF Routine 02/22/2019 3:41 AM EST URINALYSIS MICROSCOPIC EXAM Routine 02/21/2019 5:25 PM EST URINALYSIS WITH REFLEX CULTURE Routine 02/21/2019 5:25 PM EST BMP W/FASTING GLUCOSE Routine 02/21/2019 3:27 AM EST HEMOGRAM Routine 02/21/2019 3:27 AM EST DIFFERENTIAL, AUTOMATED Routine 02/21/2019 3:27 AM EST HC CBC,PLT & AUTO DIFF Routine 02/21/2019 3:27 AM EST BMP W/FASTING GLUCOSE STAT 02/20/2019 5:45 PM EST HEMOGRAM STAT 02/20/2019 5:45 PM EST DIFFERENTIAL, AUTOMATED STAT 02/20/2019 5:45 PM EST HC CBC,PLT & AUTO DIFF STAT 02/20/2019 5:45 PM EST ANAEROBIC CULTURE Routine 02/20/2019 5:4 2 PM EST HC WOUND/ABSCESS CX Routine 02/20/2019 5 :42 PM EST ABSCESS/WOUND ASPIRATE CULTURE Routine 02/20/2019 5:42 PM EST EXPLORATION GROIN W\DRAIN & DEBRIDE LYMPHOCELE Routine 02/20/2019 1:34 PM EST Hematoma documented in this encounter Results * Arterial Duplex Leg, Unil (04/01/2019 1:05 PM EST) VB Text Report Department: Vascular Surgery Lab Patient: [id number] (JENNIFER BRANCH) CPT: 25720 ICD10: I73.9 Referring Physician: NATHALY VICTOR ?? [...] VASCUBASE 04/01/2019 1:05 PM EST Nathaly Victor GUN [employer]OCKER VASCULAR ORDERABLE S VASCUBASE * SHEFALI, legs, multiple levels (04/01/2019 1:05 PM EST) VB Text Report Department: Vascular Surgery Lab Patient: [id number] (JENNIFER BRANCH) CPT: 34615 ICD10: I73.9 Referring Physician: NATHALY VICTOR ?? Indications: s/p RIGHT fem-AK pop proximal anastomosis redo on 02/04/2019, 6 week recheck; ? change SEHFALI Diabetes mellitus: Yes ICD10 Diagnosis Code: I73.9 [...] Dorsalis Pedis (Ankle) Artery ?102 ? 0.56 ??Mcintosh-Biphasic ? Posterior Tibial (Ankle) Artery ??109 ? 0.60 ??Mcintosh-Biphasic ? Great Toe ?65 ? 0.36 ?? [...] EST Nathaly Victor APRN VASCULAR ORDERABLE S VASCUBASE * (ABNORMAL) POCT Glucose (03/01/2019 11:31 AM EST) Pathologist [facility] Glucose, POC 304(H) 65 - 199 mg/dL [facility] Comment: Supplemental ranges: <140 mg/dL before meals <180 mg/dL all other times of the day Blood specimen (specimen) 03/01/2019 11:31 AM EST 03/01/2019 11:31 AM EST Kaity Fontaine MD POINT OF CARE TEST O RDERABLES Performing Organization Address [facility] Co de Phone Number [facility] [place] [address] * POCT Glucose (03/01/2019 8:27 AM EST) Glucose, POC 167 65 - 199 mg/dL [facility] Comment: Supplemental ranges: <140 mg/dL before meals <180 mg/dL all other times of the day Blood specimen (specimen) 03/01/2019 8:27 AM EST 03/01/2019 8:27 AM EST Kaity Fontaine MD POINT OF CARE TEST O ALEXERAJOHN Performing Organization Address [facility] Co de Phone Number [facility] [place] [address] * POCT Glucose (03/01/2019 4:04 AM EST) Glucose, POC 145 65 - 199 mg/dL [facility] Comment: Supplemental ranges: <140 mg/dL before meals <180 mg/dL all other times of the day Blood specimen (specimen) 03/01/2019 4:04 AM EST 03/01/2019 4:04 AM EST Kaity Fontaine MD POINT OF CARE TEST O RDERAJOHN Performing Organization Address City/[facility] Co de Phone Number [facility] [place] [address] * Differential, Automated (03/01/2019 4:04 AM EST) Neutrophil % 55.7 % [facility] Neutrophil Absolute 4.99 1.70 - 6.10 x10(3)/mcL [facility] Lymph % 32.0 % [facility] Lymphocytes Abs 2.9 0.9 - 3.2 x10(3)/[facility] Monocyte % 7.3 % [facility] Monocyte Abs 0.6 0.3 - 0.9 x10(3)/[facility] Eos % 4.1 % [facility] Eosinophils Abs 0.4 0.0 - 0.4 x10(3)/[facility] Basophil % 0.7 % [facility] Baso Absolute 0.1 0.0 - 0.1 x10(3)/[facility] Immature Gran % 0.20 % [facility] Comment: Immature granulocytes(IG's)percentage and absolute count will include metamyelocytes, myelocytes, and promyelocytes. Blood smears from CBCs yielding IG's will be scanned manually for concordance. If this scan disagrees with the automated IG or if promyelocytes are noted, a manual differential will be performed. Immature Gran Absolute 0.02 0.00 - 0.04 x10(3)/[facility] Blood specimen (specimen) 03/01/2019 4:04 AM EST 03/01/2019 4:19 AM EST Narrative Resulting Agency Comment Spec In Lab Emeli Wall MD HEMATOLOGY ORDERAB LES Performing Organization Address City/State/[facility] Co de Phone Number [facility] [place] [address] * (ABNORMAL) Hemogram (03/01/2019 4:04 AM EST) White Blood Cell 9.0 4.0 - 9.5 x10(3)/ L [facility] Red Blood Cell 3.48(L) 4.00 - 5.21 x10(6)/ L [facility] Hemoglobin 10.1(L) 11.7 - 15.5 gm/dL [facility] Hematocrit 33.1(L) 35.7 - 45.8 % [facility] Mean Cell Volume 95.1(H) 82.6 - 94.[address] [facility] Mean Cell Hemoglobin 29.0 27.1 - 32.[address] [facility] Mean Cell Hemoglobin Concentration 30.5(L) 31.7 - 35.0 gm/dL [facility] Platelet 276 145 - 357 x10(3)/mc L [facility] RDW Standard Deviation 47.8(H) 37.0 - 46.[address] [facility] RDW coefficient of variation 13.6 11.5 - 14.1 % [facility] Mean Platelet Volume 10.5 7.6 - 12.[address] [facility] NRBC% auto 0.0 % [facility] NRBC Absolute 0.000 0.000 - 0.000 x10(3)/mc L [facility] Blood specimen (specimen) 03/01/2019 4:04 AM EST 03/01/2019 4:19 AM EST Narrative Resulting Agency Comment Spec In Lab Emeli Wall MD HEMATOLOGY ORDERAB LES [facility] [place] [address] * (ABNORMAL) BMP w/fasting Glucose (03/01/2019 4:04 AM EST) Glucose Fasting 145(H) 65 - 99 mg/dL [facility] Comment: ?Fasting* Glucose Interpretive Criteria Normal [...] of Diabetes Mellitus, Position Statement from the [employer]. ??Diabetes Care, Volume 33, Supplement 1, Apr 2009 Blood Urea Nitrogen 38(H) 8 - 18 mg/dL [facility] Creatinine 1.83(H) 0.70 - 1.20 mg/dL [facility] Sodium 140 135 - 145 mmol/L [facility] Potassium 4.8 3.5 - 5.0 mmol/L [facility] Comment: Please note: ??Patients with WBC >100,000 may have falsely elevated Potassium levels. ??For accurate Potassium quantification in these patients send serum separator tube (gold top) for subsequent determinations. ??Contact the Clinical Chemistry Laboratory if there are any questions. Chloride 104 98 - 107 mmol/L [facility] Carbon Dioxide 24 22 - 31 mmol/L [facility] Anion Gap 12 5 - 15 mmol/L [facility] Calcium 9.1 8.5 - 10.5 mg/dL [facility] Est Glomerular Filtration Rate 29(L) >=60 mL/min/1. 73 m?? [facility] Comment: The eGFR was calculated using the CKD-EPI equation. As with all creatinine based estimates of kidney function, eGFR values calculated with the CKD-EPI equation are not accurate in patients with acute kidney failure, extremes of body mass or the acutely ill. [email or web address] eGFR 34(L) >=60 mL/min/1. 73 m?? [facility] Comment: The eGFR was calculated using the CKD-EPI equation. As with all creatinine based estimates of kidney function, eGFR values calculated with the CKD-EPI equation are not accurate in patients with acute kidney failure, extremes of body mass or the acutely ill. [email or web address] Blood specimen (specimen) 03/01/2019 4:04 AM EST 03/01/2019 4:19 AM EST Narrative Resulting Agency Comment Spec In Lab Kaity Fontaine MD CHEMISTRY ORDERABLES [facility] [place] [address] * POCT Glucose (03/01/2019 12:12 AM EST) Glucose, POC 132 65 - 199 mg/dL [facility] Comment: Supplemental ranges: <140 mg/dL before meals <180 mg/dL all other times of the day Blood specimen (specimen) 03/01/2019 12:12 AM EST 03/01/2019 12:12 AM EST Kaity Fontaine MD POINT OF CARE TEST O RDERABLES [facility] [place] [address] * POCT Glucose (02/28/2019 8:01 PM EST) Glucose, POC 152 65 - 199 mg/dL [facility] Comment: Supplemental ranges: <140 mg/dL before meals <180 mg/dL all other times of the day Blood specimen (specimen) 02/28/2019 8:01 PM EST 02/28/2019 8:01 PM EST Kaity Fontaine MD POINT OF CARE TEST O RDERABLES [facility] [address] * Differential, Automated (02/28/2019 3:06 AM EST) Pathologist [facility] Neutrophil % 51.2 % [facility] Neutrophil Absolute 3.90 1.70 - 6.10 x10(3)/[facility] Lymph % 37.0 % [facility] Lymphocytes Abs 2.8 0.9 - 3.2 x10(3)/[facility] Monocyte % 7.4 % [facility] Monocyte Abs 0.6 0.3 - 0.9 x10(3)/[facility] Eos % 3.3 % [facility] Eosinophils Abs 0.2 0.0 - 0.4 x10(3)/[facility] Basophil % 0.8 % [facility] Baso Absolute 0.1 0.0 - 0.1 x10(3)/[facility] Immature Gran % 0.30 % [facility] Comment: Immature granulocytes(IG's)percentage and absolute count will include metamyelocytes, myelocytes, and promyelocytes. Blood smears from CBCs yielding IG's will be scanned manually for concordance. If this scan disagrees with the automated IG or if promyelocytes are noted, a manual differential will be performed. Immature Gran Absolute 0.02 0.00 - 0.04 x10(3)/[facility] Blood specimen (specimen) 02/28/2019 3:06 AM EST 02/28/2019 3:25 AM EST Narrative Resulting Agency Comment Spec In Lab Emeli Wall MD HEMATOLOGY ORDERAB LES Performing Organization Address City/State/[facility] Co de Phone Number [facility] [place] [address] * (ABNORMAL) Hemogram (02/28/2019 3:06 AM EST) White Blood Cell 7.6 4.0 - 9.5 x10(3)/mc L [facility] Red Blood Cell 3.46(L) 4.00 - 5.21 x10(6)/mc L [facility] Hemoglobin 10.0(L) 11.7 - 15.5 gm/dL [facility] Hematocrit 32.5(L) 35.7 - 45.8 % [facility] Mean Cell Volume 93.9 82.6 - 94.[address] [facility] Mean Cell Hemoglobin 28.9 27.1 - 32.[address] [facility] Mean Cell Hemoglobin Concentration 30.8(L) 31.7 - 35.0 gm/dL [facility] Platelet 281 145 - 357 x10(3)/mc L [facility] RDW Standard Deviation 46.4(H) 37.0 - 46.[address] [facility] RDW coefficient of variation 13.5 11.5 - 14.1 % [facility] Mean Platelet Volume 10.6 7.6 - 12.9 [facility] NRBC% auto 0.0 % [facility] NRBC Absolute 0.000 0.000 - 0.000 x10(3)/mc L [facility] Blood specimen (specimen) 02/28/2019 3:06 AM EST 02/28/2019 3:25 AM EST Narrative Resulting Agency Comment Spec In Lab Emeli Wall MD HEMATOLOGY ORDERAB LES Performing Organization Address City/[facility] Co de Phone Number [facility] [place] [address] * (ABNORMAL) BMP w/fasting Glucose (02/28/2019 3:06 AM EST) Glucose Fasting 245(H) 65 - 99 mg/dL [facility] Comment: ?Fasting* Glucose Interpretive Criteria Normal [...] of Diabetes Mellitus, Position Statement from the [employer]. ??Diabetes Care, Volume 33, Supplement 1, Apr 2009 Blood Urea Nitrogen 42(H) 8 - 18 mg/dL [facility] Creatinine 2.20(H) 0.70 - 1.20 mg/dL [facility] Sodium 135 135 - 145 mmol/L [facility] Potassium 4.6 3.5 - 5.0 mmol/L [facility] Comment: Please note: ??Patients with WBC >100,000 may have falsely elevated Potassium levels. ??For accurate Potassium quantification in these patients send serum separator tube (gold top) for subsequent determinations. ??Contact the Clinical Chemistry Laboratory if there are any questions. Chloride 100 98 - 107 mmol/L [facility] Carbon Dioxide 23 22 - 31 mmol/L [facility] Anion Gap 12 5 - 15 mmol/L [facility] Calcium 8.9 8.5 - 10.5 mg/dL [facility] Est Glomerular Filtration Rate 24(L) >=60 mL/min/1. 73 m?? [facility] Comment: The eGFR was calculated using the CKD-EPI equation. As with all creatinine based estimates of kidney function, eGFR values calculated with the CKD-EPI equation are not accurate in patients with acute kidney failure, extremes of body mass or the acutely ill. [email or web address] [place], [email or web address] eGFR 27(L) >=60 mL/min/1. 73 m?? [facility] Comment: The eGFR was calculated using the CKD-EPI equation. As with all creatinine based estimates of kidney function, eGFR values calculated with the CKD-EPI equation are not accurate in patients with acute kidney failure, extremes of body mass or the acutely ill. [email or web address] [place], [email or web address] Blood specimen (specimen) 02/28/2019 3:06 AM EST 02/28/2019 3:25 AM EST Narrative Resulting Agency Comment Spec In Lab Kaity Fontaine MD CHEMISTRY ORDERABLES [facility] [place] [address] * Differential, Automated (02/27/2019 4:27 AM EST) Neutrophil % 45.3 % [facility] Neutrophil Absolute 3.00 1.70 - 6.10 x10(3)/mcL [facility] Lymph % 42.1 % [facility] Lymphocytes Abs 2.8 0.9 - 3.2 x10(3)/[facility] Monocyte % 7.0 % [facility] Monocyte Abs 0.5 0.3 - 0.9 x10(3)/[facility] Eos % 4.2 % [facility] Eosinophils Abs 0.3 0.0 - 0.4 x10(3)/[facility] Basophil % 1.1 % [facility] Baso Absolute 0.1 0.0 - 0.1 x10(3)/[facility] Immature Gran % 0.30 % [facility] Comment: Immature granulocytes(IG's)percentage and absolute count will include metamyelocytes, myelocytes, and promyelocytes. Blood smears from CBCs yielding IG's will be scanned manually for concordance. If this scan disagrees with the automated IG or if promyelocytes are noted, a manual differential will be performed. Immature Gran Absolute 0.02 0.00 - 0.04 x10(3)/[facility] Blood specimen (specimen) 02/27/2019 4:27 AM EST 02/27/2019 4:57 AM EST Narrative Resulting Agency Comment Spec In Lab Emeli Wall MD HEMATOLOGY ORDERAB LES Performing Organization Address City/State/[facility] Co de Phone Number [facility] [place] [address] * (ABNORMAL) Hemogram (02/27/2019 4:27 AM EST) White Blood Cell 6.6 4.0 - 9.5 x10(3)/ L [facility] Red Blood Cell 3.52(L) 4.00 - 5.21 x10(6)/ L [facility] Hemoglobin 10.3(L) 11.7 - 15.5 gm/dL [facility] Hematocrit 32.4(L) 35.7 - 45.8 % [facility] Mean Cell Volume 92.0 82.6 - 94.[address] [facility] Mean Cell Hemoglobin 29.3 27.1 - 32.[address] [facility] Mean Cell Hemoglobin Concentration 31.8 31.7 - 35.0 gm/dL [facility] Platelet 269 145 - 357 x10(3)/mc L [facility] RDW Standard Deviation 45.5 37.0 - 46.[address] [facility] RDW coefficient of variation 13.4 11.5 - 14.1 % [facility] Mean Platelet Volume 10.2 7.6 - 12.[address] [facility] NRBC% auto 0.0 % [facility] NRBC Absolute 0.000 0.000 - 0.000 x10(3)/mc L [facility] Blood specimen (specimen) 02/27/2019 4:27 AM EST 02/27/2019 4:57 AM EST Narrative Resulting Agency Comment Spec In Lab Emeli Wall MD HEMATOLOGY ORDERAB LES [facility] [place] [address] * (ABNORMAL) BMP w/fasting Glucose (02/27/2019 4:27 AM EST) Glucose Fasting 191(H) 65 - 99 mg/dL [facility] Comment: ?Fasting* Glucose Interpretive Criteria Normal [...] of Diabetes Mellitus, Position Statement from the [employer]. ??Diabetes Care, Volume 33, Supplement 1, Apr 2009 Blood Urea Nitrogen 34(H) 8 - 18 mg/dL [facility] Creatinine 1.94(H) 0.70 - 1.20 mg/dL [facility] Sodium 138 135 - 145 mmol/L [facility] Potassium 5.2(H) 3.5 - 5.0 mmol/L [facility] Comment: Please note: ??Patients with WBC >100,000 may have falsely elevated Potassium levels. ??For accurate Potassium quantification in these patients send serum separator tube (gold top) for subsequent determinations. ??Contact the Clinical Chemistry Laboratory if there are any questions. Chloride 102 98 - 107 mmol/L [facility] Carbon Dioxide 25 22 - 31 mmol/L [facility] Anion Gap 11 5 - 15 mmol/L [facility] Calcium 9.0 8.5 - 10.5 mg/dL [facility] Est Glomerular Filtration Rate 27(L) >=60 mL/min/1. 73 m?? [facility] Comment: The eGFR was calculated using the CKD-EPI equation. As with all creatinine based estimates of kidney function, eGFR values calculated with the CKD-EPI equation are not accurate in patients with acute kidney failure, extremes of body mass or the acutely ill. [email or web address]/[facility] [place], [place] eGFR 32(L) >=60 mL/min/1. 73 m?? [facility] Comment: The eGFR was calculated using the CKD-EPI equation. As with all creatinine based estimates of kidney function, eGFR values calculated with the CKD-EPI equation are not accurate in patients with acute kidney failure, extremes of body mass or the acutely ill. [email or web address] [place], [email or web address] Blood specimen (specimen) 02/27/2019 4:27 AM EST 02/27/2019 4:57 AM EST Narrative Resulting Agency Comment Spec In Lab Kaity Fontaine MD [place] [address] * Differential, Automated (02/26/2019 4:43 AM EST) Pathologist [facility] Neutrophil % 47.9 % [facility] Neutrophil Absolute 3.27 1.70 - 6.10 x10(3)/[facility] Lymph % 40.3 % [facility] Lymphocytes Abs 2.8 0.9 - 3.2 x10(3)/[facility] Monocyte % 6.2 % [facility] Monocyte Abs 0.4 0.3 - 0.9 x10(3)/[facility] Eos % 4.3 % [facility] Eosinophils Abs 0.3 0.0 - 0.4 x10(3)/[facility] Basophil % 1.0 % [facility] Baso Absolute 0.1 0.0 - 0.1 x10(3)/[facility] Immature Gran % 0.30 % [facility] Comment: Immature granulocytes(IG's)percentage and absolute count will include metamyelocytes, myelocytes, and promyelocytes. Blood smears from CBCs yielding IG's will be scanned manually for concordance. If this scan disagrees with the automated IG or if promyelocytes are noted, a manual differential will be performed. Immature Gran Absolute 0.02 0.00 - 0.04 x10(3)/[facility] Blood specimen (specimen) 02/26/2019 4:43 AM EST 02/26/2019 5:06 AM EST Narrative Resulting Agency Comment Spec In Lab Emeli Wall MD [place]EM[place] [address] * (ABNORMAL) Hemogram (02/26/2019 4:43 AM EST) Pathologist [facility] White Blood Cell 6.8 4.0 - 9.5 x10(3)/[facility] Red Blood Cell 3.68(L) 4.00 - 5.21 x10(6)/[facility] Hemoglobin 10.9(L) 11.7 - 15.5 gm/dL [facility] Hematocrit 34.1(L) 35.7 - 45.8 % [facility] Mean Cell Volume 92.7 82.6 - 94.[address] [facility] Mean Cell Hemoglobin 29.6 27.1 - 32.[address] [facility] Mean Cell Hemoglobin Concentration 32.0 31.7 - 35.0 gm/dL [facility] Platelet 311 145 - 357 x10(3)/[facility] RDW Standard Deviation 44.8 37.0 - 46.0 [facility] RDW coefficient of variation 13.2 11.5 - 14.1 % [facility] Mean Platelet Volume 10.1 7.6 - 12.9 [facility] NRBC% auto 0.0 % [facility] NRBC Absolute 0.000 0.000 - 0.000 x10(3)/[facility] Blood specimen (specimen) 02/26/2019 4:43 AM EST 02/26/2019 5:06 AM EST Narrative Resulting Agency Comment Spec In Lab Emeli Wall MD HEMATOLOGY ORDERAB LES [facility] [place] [address] * (ABNORMAL) BMP w/fasting Glucose (02/26/2019 4:43 AM EST) Glucose Fasting 74 65 - 99 mg/dL [facility] Comment: ?Fasting* Glucose Interpretive Criteria Normal [...] of Diabetes Mellitus, Position Statement from the [employer]. ??Diabetes Care, Volume 33, Supplement 1, Apr 2009 Blood Urea Nitrogen 22(H) 8 - 18 mg/dL [facility] Creatinine 1.44(H) 0.70 - 1.20 mg/dL [facility] Sodium 139 135 - 145 mmol/L [facility] Potassium 4.6 3.5 - 5.0 mmol/L [facility] Comment: Please note: ??Patients with WBC >100,000 may have falsely elevated Potassium levels. ??For accurate Potassium quantification in these patients send serum separator tube (gold top) for subsequent determinations. ??Contact the Clinical Chemistry Laboratory if there are any questions. Chloride 103 98 - 107 mmol/L [facility] Carbon Dioxide 22 22 - 31 mmol/L [facility] Anion Gap 14 5 - 15 mmol/L [facility] Calcium 9.0 8.5 - 10.5 mg/dL [facility] Est Glomerular Filtration Rate 39(L) >=60 mL/min/1. 73 m?? [facility] Comment: The eGFR was calculated using the CKD-EPI equation. As with all creatinine based estimates of kidney function, eGFR values calculated with the CKD-EPI equation are not accurate in patients with acute kidney failure, extremes of body mass or the acutely ill. [email or web address] eGFR 46(L) >=60 mL/min/1. 73 m?? [facility] Comment: The eGFR was calculated using the CKD-EPI equation. As with all creatinine based estimates of kidney function, eGFR values calculated with the CKD-EPI equation are not accurate in patients with acute kidney failure, extremes of body mass or the acutely ill. [email or web address] Blood specimen (specimen) 02/26/2019 4:43 AM EST 02/26/2019 5:06 AM EST Narrative Resulting Agency Comment Spec In Lab Kaity Fontaine MD CHEMISTRY ORDERABLES [facility] [place] [address] * Differential, Automated (02/25/2019 3:34 AM EST) Neutrophil % 46.3 % [facility] Neutrophil Absolute 3.02 1.70 - 6.10 x10(3)/[facility] Lymph % 39.2 % [facility] Lymphocytes Abs 2.6 0.9 - 3.2 x10(3)/[facility] Monocyte % 7.1 % [facility] Monocyte Abs 0.5 0.3 - 0.9 x10(3)/[facility] Eos % 6.1 % [facility] Eosinophils Abs 0.4 0.0 - 0.4 x10(3)/[facility] Basophil % 1.1 % [facility] Baso Absolute 0.1 0.0 - 0.1 x10(3)/[facility] Immature Gran % 0.20 % [facility] Comment: Immature granulocytes(IG's)percentage and absolute count will include metamyelocytes, myelocytes, and promyelocytes. Blood smears from CBCs yielding IG's will be scanned manually for concordance. If this scan disagrees with the automated IG or if promyelocytes are noted, a manual differential will be performed. Immature Gran Absolute 0.01 0.00 - 0.04 x10(3)/[facility] Blood specimen (specimen) 02/25/2019 3:34 AM EST 02/25/2019 3:59 AM EST Narrative Resulting Agency Comment Spec In Lab Servando Nolan MD HEMATOLOGY ORDERABLE S [facility] [place] [address] * (ABNORMAL) Hemogram (02/25/2019 3:34 AM EST) [facility] Blood Cell 6.5 4.0 - 9.5 x10(3)/mc L [facility] Red Blood Cell 3.55(L) 4.00 - 5.21 x10(6)/mc L [facility] Hemoglobin 10.4(L) 11.7 - 15.5 gm/dL [facility] Hematocrit 33.3(L) 35.7 - 45.8 % [facility] Mean Cell Volume 93.8 82.6 - 94.[address] [facility] Mean Cell Hemoglobin 29.3 27.1 - 32.[address] [facility] Mean Cell Hemoglobin Concentration 31.2(L) 31.7 - 35.0 gm/dL [facility] Platelet 322 145 - 357 x10(3)/mc L [facility] RDW Standard Deviation 45.0 37.0 - 46.[address] [facility] RDW coefficient of variation 13.1 11.5 - 14.1 % [facility] Mean Platelet Volume 10.4 7.6 - 12.[address] [facility] NRBC% auto 0.0 % [facility] NRBC Absolute 0.000 0.000 - 0.000 x10(3)/mc L [facility] Blood specimen (specimen) 02/25/2019 3:34 AM EST 02/25/2019 3:59 AM EST Narrative Resulting Agency Comment Spec In Lab Servando Nolan MD HEMATOLOGY ORDERABLE S [facility] [place] [address] * (ABNORMAL) BMP w/fasting Glucose (02/25/2019 3:34 AM EST) [facility] Signature Glucose Fasting 205(H) 65 - 99 mg/dL [facility] Comment: ?Fasting* Glucose Interpretive Criteria Normal [...] of Diabetes Mellitus, Position Statement from the [employer]. ??Diabetes Care, Volume 33, Supplement 1, Apr 2009 Blood Urea Nitrogen 25(H) 8 - 18 mg/dL [facility] Creatinine 1.63(H) 0.70 - 1.20 mg/dL [facility] Sodium 140 135 - 145 mmol/L [facility] Potassium 4.7 3.5 - 5.0 mmol/L [facility] Comment: Please note: ??Patients with WBC >100,000 may have falsely elevated Potassium levels. ??For accurate Potassium quantification in these patients send serum separator tube (gold top) for subsequent determinations. ??Contact the Clinical Chemistry Laboratory if there are any questions. Chloride 105 98 - 107 mmol/L [facility] Carbon Dioxide 24 22 - 31 mmol/L [facility] Anion Gap 11 5 - 15 mmol/L [facility] Calcium 9.1 8.5 - 10.5 mg/dL [facility] Est Glomerular Filtration Rate 34(L) >=60 mL/min/1. 73 m?? [facility] Comment: The eGFR was calculated using the CKD-EPI equation. As with all creatinine based estimates of kidney function, eGFR values calculated with the CKD-EPI equation are not accurate in patients with acute kidney failure, extremes of body mass or the acutely ill. [email or web address], [email or web address] eGFR 39(L) >=60 mL/min/1. 73 m?? [facility] Comment: The eGFR was calculated using the CKD-EPI equation. As with all creatinine based estimates of kidney function, eGFR values calculated with the CKD-EPI equation are not accurate in patients with acute kidney failure, extremes of body mass or the acutely ill. [email or web address] Blood specimen (specimen) 02/25/2019 3:34 AM EST 02/25/2019 3:59 AM EST Narrative Resulting Agency Comment Spec In Lab Kaity Fontaine MD CHEMISTRY ORDERABLES Performing Organization Address City/State/[facility] Co de Phone Number [facility] [place] [address] * Differential, Automated (02/24/2019 3:52 AM EST) Neutrophil % 40.8 % [facility] Neutrophil Absolute 2.66 1.70 - 6.10 x10(3)/[facility] Lymph % 44.1 % [facility] Lymphocytes Abs 2.9 0.9 - 3.2 x10(3)/[facility] Monocyte % 7.4 % [facility] Monocyte Abs 0.5 0.3 - 0.9 x10(3)/[facility] Eos % 6.6 % [facility] Eosinophils Abs 0.4 0.0 - 0.4 x10(3)/[facility] Basophil % 0.9 % [facility] Baso Absolute 0.1 0.0 - 0.1 x10(3)/[facility] Immature Gran % 0.20 % [facility] Comment: Immature granulocytes(IG's)percentage and absolute count will include metamyelocytes, myelocytes, and promyelocytes. Blood smears from CBCs yielding IG's will be scanned manually for concordance. If this scan disagrees with the automated IG or if promyelocytes are noted, a manual differential will be performed. Immature Gran Absolute 0.01 0.00 - 0.04 x10(3)/[facility] Blood specimen (specimen) 02/24/2019 3:52 AM EST 02/24/2019 4:25 AM EST Narrative Resulting Agency Comment Spec In Lab Servando Nolan MD HEMATOLOGY ORDERABLE S Performing Organization Address City/State/[facility] Co de Phone Number [facility] [place] [address] * (ABNORMAL) Hemogram (02/24/2019 3:52 AM EST) White Blood Cell 6.5 4.0 - 9.5 x10(3)/[facility] Red Blood Cell 3.58(L) 4.00 - 5.21 x10(6)/[facility] Hemoglobin 10.6(L) 11.7 - 15.5 gm/dL [facility] Hematocrit 33.9(L) 35.7 - 45.8 % [facility] Mean Cell Volume 94.7(H) 82.6 - 94.[address] [facility] Mean Cell Hemoglobin 29.6 27.1 - 32.[address] [facility] Mean Cell Hemoglobin Concentration 31.3(L) 31.7 - 35.0 gm/dL [facility] Platelet 316 145 - 357 x10(3)/[facility] RDW Standard Deviation 45.4 37.0 - 46.0 [facility] RDW coefficient of variation 13.2 11.5 - 14.1 % [facility] Mean Platelet Volume 10.3 7.6 - 12.[address] [facility] NRBC% auto 0.0 % [facility] NRBC Absolute 0.000 0.000 - 0.000 x10(3)/[facility] Blood specimen (specimen) 02/24/2019 3:52 AM EST 02/24/2019 4:25 AM EST Narrative Resulting Agency Comment Spec In Lab Servando Nolan MD HEMATOLOGY ORDERABLE S [facility] [place] [address] * (ABNORMAL) BMP w/fasting Glucose (02/24/2019 3:52 AM EST) Glucose Fasting 133(H) 65 - 99 mg/dL [facility] Comment: ?Fasting* Glucose Interpretive Criteria Normal [...] of Diabetes Mellitus, Position Statement from the [employer]. ??Diabetes Care, Volume 33, Supplement 1, Apr 2009 Blood Urea Nitrogen 21(H) 8 - 18 mg/dL [facility] Creatinine 1.69(H) 0.70 - 1.20 mg/dL [facility] Sodium 141 135 - 145 mmol/L [facility] Potassium 4.7 3.5 - 5.0 mmol/L [facility] Comment: Please note: ??Patients with WBC >100,000 may have falsely elevated Potassium levels. ??For accurate Potassium quantification in these patients send serum separator tube (gold top) for subsequent determinations. ??Contact the Clinical Chemistry Laboratory if there are any questions. Chloride 107 98 - 107 mmol/L [facility] Carbon Dioxide 23 22 - 31 mmol/L [facility] Anion Gap 11 5 - 15 mmol/L [facility] Calcium 8.9 8.5 - 10.5 mg/dL [facility] Est Glomerular Filtration Rate 32(L) >=60 mL/min/1. 73 m?? [facility] Comment: The eGFR was calculated using the CKD-EPI equation. As with all creatinine based estimates of kidney function, eGFR values calculated with the CKD-EPI equation are not accurate in patients with acute kidney failure, extremes of body mass or the acutely ill. [email or web address] [place], [email or web address] eGFR 38(L) >=60 mL/min/1. 73 m?? [facility] Comment: The eGFR was calculated using the CKD-EPI equation. As with all creatinine based estimates of kidney function, eGFR values calculated with the CKD-EPI equation are not accurate in patients with acute kidney failure, extremes of body mass or the acutely ill. [email or web address] [place], [email or web address] Blood specimen (specimen) 02/24/2019 3:52 AM EST 02/24/2019 4:25 AM EST Narrative Resulting Agency Comment Spec In Lab Kaity Fontaine MD CHEMISTRY ORDERABLES Performing Organization Address City/[facility] Co de Phone Number [facility] [place] [address] * (ABNORMAL) POCT Glucose (02/23/2019 3:43 PM EST) Pathologist [facility] Glucose, POC 216(H) 65 - 199 mg/dL [facility] Comment: Supplemental ranges: <140 mg/dL before meals <180 mg/dL all other times of the day Blood specimen (specimen) 02/23/2019 3:43 PM EST 02/23/2019 3:43 PM EST Kaity Fontaine MD POINT OF CARE TEST O RDERABLES Performing Organization Address [facility]/ZIP Co de Phone Number [facility] [place] [address] * Differential, Automated (02/23/2019 3:22 AM EST) Pathologist [facility] Neutrophil % 47.1 % [facility] Neutrophil Absolute 2.82 1.70 - 6.10 x10(3)/[facility] Lymph % 37.5 % [facility] Lymphocytes Abs 2.2 0.9 - 3.2 x10(3)/[facility] Monocyte % 6.7 % [facility] Monocyte Abs 0.4 0.3 - 0.9 x10(3)/[facility] Eos % 7.0 % [facility] Eosinophils Abs 0.4 0.0 - 0.4 x10(3)/[facility] Basophil % 1.5 % [facility] Baso Absolute 0.1 0.0 - 0.1 x10(3)/[facility] Immature Gran % 0.20 % [facility] Comment: Immature granulocytes(IG's)percentage and absolute count will include metamyelocytes, myelocytes, and promyelocytes. Blood smears from CBCs yielding IG's will be scanned manually for concordance. If this scan disagrees with the automated IG or if promyelocytes are noted, a manual differential will be performed. Immature Gran Absolute 0.01 0.00 - 0.04 x10(3)/[facility] Blood specimen (specimen) 02/23/2019 3:22 AM EST 02/23/2019 3:48 AM EST Narrative Resulting Agency Comment Spec In Lab Servando Nolan MD HEMATOLOGY ORDERABLE S [facility] [place] [address] * (ABNORMAL) Hemogram (02/23/2019 3:22 AM EST) White Blood Cell 6.0 4.0 - 9.5 x10(3)/ L [facility] Red Blood Cell 3.74(L) 4.00 - 5.21 x10(6)/ L [facility] Hemoglobin 10.8(L) 11.7 - 15.5 gm/dL [facility] Hematocrit 35.4(L) 35.7 - 45.8 % [facility] Mean Cell Volume 94.7(H) 82.6 - 94.[address] [facility] Mean Cell Hemoglobin 28.9 27.1 - 32.[address] [facility] Mean Cell Hemoglobin Concentration 30.5(L) 31.7 - 35.0 gm/dL [facility] Platelet 353 145 - 357 x10(3)/mc L [facility] RDW Standard Deviation 46.1(H) 37.0 - 46.0 [facility] RDW coefficient of variation 13.4 11.5 - 14.1 % [facility] Mean Platelet Volume 10.0 7.6 - 12.9 [facility] NRBC% auto 0.0 % [facility] NRBC Absolute 0.000 0.000 - 0.000 x10(3)/mc L [facility] Blood specimen (specimen) 02/23/2019 3:22 AM EST 02/23/2019 3:48 AM EST Narrative Resulting Agency Comment Spec In Lab Servando Nolan MD HEMATOLOGY ORDERABLE S Performing Organization Address City/State/[facility] Co de Phone Number [facility] [place] [address] * (ABNORMAL) BMP w/fasting Glucose (02/23/2019 3:22 AM EST) Glucose Fasting 95 65 - 99 mg/dL [facility] Comment: ?Fasting* Glucose Interpretive Criteria Normal [...] of Diabetes Mellitus, Position Statement from the [employer]. ??Diabetes Care, Volume 33, Supplement 1, Apr 2009 Blood Urea Nitrogen 18 8 - 18 mg/dL [facility] Creatinine 1.36(H) 0.70 - 1.20 mg/dL [facility] Sodium 141 135 - 145 mmol/L [facility] Potassium 4.7 3.5 - 5.0 mmol/L [facility] Comment: Please note: ??Patients with WBC >100,000 may have falsely elevated Potassium levels. ??For accurate Potassium quantification in these patients send serum separator tube (gold top) for subsequent determinations. ??Contact the Clinical Chemistry Laboratory if there are any questions. Chloride 106 98 - 107 mmol/L [facility] Carbon Dioxide 23 22 - 31 mmol/L [facility] Anion Gap 12 5 - 15 mmol/L [facility] Calcium 9.1 8.5 - 10.5 mg/dL [facility] Est Glomerular Filtration Rate 42(L) >=60 mL/min/1. 73 m?? [facility] Comment: The eGFR was calculated using the CKD-EPI equation. As with all creatinine based estimates of kidney function, eGFR values calculated with the CKD-EPI equation are not accurate in patients with acute kidney failure, extremes of body mass or the acutely ill. [email or web address] [place], [email or web address] eGFR 49(L) >=60 mL/min/1. 73 m?? [facility] Comment: The eGFR was calculated using the CKD-EPI equation. As with all creatinine based estimates of kidney function, eGFR values calculated with the CKD-EPI equation are not accurate in patients with acute kidney failure, extremes of body mass or the acutely ill. [email or web address] Blood specimen (specimen) 02/23/2019 3:22 AM EST 02/23/2019 3:48 AM EST Narrative Resulting Agency Comment Spec In Lab Kaity Fontaine MD CHEMISTRY ORDERABLES Performing Organization Address City/[facility]/ZIP Co de Phone Number [facility] [place] [address] * POCT Glucose (02/22/2019 8:57 AM EST) [facility] Glucose, POC 67 65 - 199 mg/dL [facility] Comment: Supplemental ranges: <140 mg/dL before meals <180 mg/dL all other times of the day Blood specimen (specimen) 02/22/2019 8:57 AM EST 02/22/2019 8:57 AM EST Kaity Fontaine MD POINT OF CARE TEST O RDERABLES Performing Organization Address [facility] Co de Phone Number [facility] [place] [address] * Differential, Automated (02/22/2019 3:41 AM EST) [facility] Neutrophil % 50.4 % [facility] Neutrophil Absolute 3.04 1.70 - 6.10 x10(3)/[facility] Lymph % 33.4 % [facility] Lymphocytes Abs 2.0 0.9 - 3.2 x10(3)/[facility] Monocyte % 7.5 % [facility] Monocyte Abs 0.4 0.3 - 0.9 x10(3)/[facility] Eos % 7.3 % [facility] Eosinophils Abs 0.4 0.0 - 0.4 x10(3)/[facility] Basophil % 1.2 % [facility] Baso Absolute 0.1 0.0 - 0.1 x10(3)/[facility] Immature Gran % 0.20 % [facility] Comment: Immature granulocytes(IG's)percentage and absolute count will include metamyelocytes, myelocytes, and promyelocytes. Blood smears from CBCs yielding IG's will be scanned manually for concordance. If this scan disagrees with the automated IG or if promyelocytes are noted, a manual differential will be performed. Immature Gran Absolute 0.01 0.00 - 0.04 x10(3)/[facility] Blood specimen (specimen) 02/22/2019 3:41 AM EST 02/22/2019 4:17 AM EST Narrative Resulting Agency Comment Spec In Lab Zenobia Quijano MD HEMATOLOGY ORDERABLE S [facility] [place] [address] * (ABNORMAL) Hemogram (02/22/2019 3:41 AM EST) White Blood Cell 6.0 4.0 - 9.5 x10(3)/[facility] Red Blood Cell 3.58(L) 4.00 - 5.21 x10(6)/[facility] Hemoglobin 10.2(L) 11.7 - 15.5 gm/dL [facility] Hematocrit 33.5(L) 35.7 - 45.8 % [facility] Mean Cell Volume 93.6 82.6 - 94.4 [facility] Mean Cell Hemoglobin 28.5 27.1 - 32.[address] [facility] Mean Cell Hemoglobin Concentration 30.4(L) 31.7 - 35.0 gm/dL [facility] Platelet 351 145 - 357 x10(3)/[facility] RDW Standard Deviation 45.7 37.0 - 46.0 [facility] RDW coefficient of variation 13.2 11.5 - 14.1 % [facility] Mean Platelet Volume 10.1 7.6 - 12.9 [facility] NRBC% auto 0.0 % [facility] NRBC Absolute 0.000 0.000 - 0.000 x10(3)/[facility] Blood specimen (specimen) 02/22/2019 3:41 AM EST 02/22/2019 4:17 AM EST Narrative Resulting Agency Comment Spec In Lab Zenobia Quijano MD HEMATOLOGY ORDERABLE S [facility] [place] [address] * (ABNORMAL) BMP w/fasting Glucose (02/22/2019 3:41 AM EST) Glucose Fasting 125(H) 65 - 99 mg/dL [facility] Comment: ?Fasting* Glucose Interpretive Criteria Normal [...] of Diabetes Mellitus, Position Statement from the [employer]. ??Diabetes Care, Volume 33, Supplement 1, Apr 2009 Blood Urea Nitrogen 21(H) 8 - 18 mg/dL [facility] Creatinine 1.48(H) 0.70 - 1.20 mg/dL [facility] Sodium 141 135 - 145 mmol/L [facility] Potassium 4.9 3.5 - 5.0 mmol/L [facility] Comment: Please note: ??Patients with WBC >100,000 may have falsely elevated Potassium levels. ??For accurate Potassium quantification in these patients send serum separator tube (gold top) for subsequent determinations. ??Contact the Clinical Chemistry Laboratory if there are any questions. Chloride 106 98 - 107 mmol/L [facility] Carbon Dioxide 23 22 - 31 mmol/L [facility] Anion Gap 12 5 - 15 mmol/L [facility] Calcium 8.7 8.5 - 10.5 mg/dL [facility] Est Glomerular Filtration Rate 38(L) >=60 mL/min/1. 73 m?? [facility] Comment: The eGFR was calculated using the CKD-EPI equation. As with all creatinine based estimates of kidney function, eGFR values calculated with the CKD-EPI equation are not accurate in patients with acute kidney failure, extremes of body mass or the acutely ill. [email or web address] eGFR 44(L) >=60 mL/min/1. 73 m?? [facility] Comment: The eGFR was calculated using the CKD-EPI equation. As with all creatinine based estimates of kidney function, eGFR values calculated with the CKD-EPI equation are not accurate in patients with acute kidney failure, extremes of body mass or the acutely ill. [email or web address] [place], [email or web address] Blood specimen (specimen) 02/22/2019 3:41 AM EST 02/22/2019 4:17 AM EST Narrative Resulting Agency Comment Spec In Lab Kaity Fontaine MD CHEMISTRY ORDERABLES Performing Organization Address City/[facility]/ZIP Co de Phone Number [facility] [place] [address] * Urinalysis Microscopic Exam (02/21/2019 5:25 PM EST) RBC, Urine 3 0 - 4 /HPF [facility] WBC, Urine 5 0 - 5 /HPF [facility] Urine specimen obtained via indwelling urinary catheter (specimen) 02/21/2019 5:25 PM EST 02/21/2019 5:52 PM EST Narrative Resulting Agency Comment Spec In Lab Servando Nolan MD URINE ORDERABLES Performing Organization Address City/[facility]/ZIP Co de Phone Number [facility] [place] [address] * (ABNORMAL) Urinalysis with reflex Culture (02/21/2019 5:25 PM EST) Glucose, Urine Dipstick Negative Negative mg/dL [facility] Protein, Urine Dipstick Negative Negative mg/dL [facility] Bilirubin, Urine Dipstick Negative Negative mg/dL [facility] Comment: Clinical correlation required for positive Urine Bilirubin results as false positive may occur with some drugs and drug related products. If a false positive is suspected a serum total bilirubin should be considered if clinically indicated. Urobilinogen, Urine Dipstick Normal Normal mg/dL [facility] pH, Urn (dipstick) 6.5 5.0 - 8.0 [facility] Blood, Urine Dipstick Negative Negative mg/dL [facility] Ketone, Urine Dipstick Negative Negative mg/dL [facility] Nitrite, Urine Dipstick Negative Negative [facility] Leukocytes, Urine Dipstick Trace(A) Negative [facility] Appearance, Urine Dipstick Clear Clear [facility] Specific [place] Urine Automated 1.015 1.002 - 1.030 [facility] Color, Urine Dipstick Yellow Yellow [facility] Reflex to Culture No [facility] Urine specimen obtained via indwelling urinary catheter (specimen) 02/21/2019 5:25 PM EST 02/21/2019 5:52 PM EST Narrative Resulting Agency Comment Spec In Lab Kaity Fontaine MD URINE ORDERABLES Performing Organization Address City/State/[facility] Co de Phone Number [facility] [place] [address] * Differential, Automated (02/21/2019 3:27 AM EST) Neutrophil % 56.1 % [facility] Neutrophil Absolute 3.96 1.70 - 6.10 x10(3)/[facility] Lymph % 28.8 % [facility] Lymphocytes Abs 2.0 0.9 - 3.2 x10(3)/[facility] Monocyte % 7.6 % [facility] Monocyte Abs 0.5 0.3 - 0.9 x10(3)/[facility] Eos % 6.2 % [facility] Eosinophils Abs 0.4 0.0 - 0.4 x10(3)/[facility] Basophil % 1.0 % [facility] Baso Absolute 0.1 0.0 - 0.1 x10(3)/[facility] Immature Gran % 0.30 % [facility] Comment: Immature granulocytes(IG's)percentage and absolute count will include metamyelocytes, myelocytes, and promyelocytes. Blood smears from CBCs yielding IG's will be scanned manually for concordance. If this scan disagrees with the automated IG or if promyelocytes are noted, a manual differential will be performed. Immature Gran Absolute 0.02 0.00 - 0.04 x10(3)/[facility] Blood specimen (specimen) 02/21/2019 3:27 AM EST 02/21/2019 3:36 AM EST Narrative Resulting Agency Comment Spec In Lab Zenobia Quijano MD HEMATOLOGY ORDERABLE S [facility] [place] [address] * (ABNORMAL) Hemogram (02/21/2019 3:27 AM EST) White Blood Cell 7.1 4.0 - 9.5 x10(3)/mc L [facility] Red Blood Cell 3.38(L) 4.00 - 5.21 x10(6)/mc L [facility] Hemoglobin 9.9(L) 11.7 - 15.5 gm/dL [facility] Hematocrit 31.9(L) 35.7 - 45.8 % [facility] Mean Cell Volume 94.4 82.6 - 94.[address] [facility] Mean Cell Hemoglobin 29.3 27.1 - 32.[address] [facility] Mean Cell Hemoglobin Concentration 31.0(L) 31.7 - 35.0 gm/dL [facility] Platelet 331 145 - 357 x10(3)/mc L [facility] RDW Standard Deviation 46.7(H) 37.0 - 46.[address] [facility] RDW coefficient of variation 13.4 11.5 - 14.1 % [facility] Mean Platelet Volume 9.8 7.6 - 12.[address] [facility] NRBC% auto 0.0 % [facility] NRBC Absolute 0.000 0.000 - 0.000 x10(3)/mc L [facility] Blood specimen (specimen) 02/21/2019 3:27 AM EST 02/21/2019 3:36 AM EST Narrative Resulting Agency Comment Spec In Lab Zenobia Quijano MD HEMATOLOGY ORDERABLE S Performing Organization Address City/State/[facility] Co de Phone Number [facility] [place] [id number] * (ABNORMAL) BMP w/fasting Glucose (02/21/2019 3:27 AM EST) Glucose Fasting 76 65 - 99 mg/dL [facility] Comment: ?Fasting* Glucose Interpretive Criteria Normal [...] of Diabetes Mellitus, Position Statement from the [employer]. ??Diabetes Care, Volume 33, Supplement 1, Apr 2009 Blood Urea Nitrogen 27(H) 8 - 18 mg/dL [facility] Creatinine 1.60(H) 0.70 - 1.20 mg/dL [facility] Sodium 141 135 - 145 mmol/L [facility] Potassium 4.8 3.5 - 5.0 mmol/L [facility] Comment: Please note: ??Patients with WBC >100,000 may have falsely elevated Potassium levels. ??For accurate Potassium quantification in these patients send serum separator tube (gold top) for subsequent determinations. ??Contact the Clinical Chemistry Laboratory if there are any questions. Chloride 107 98 - 107 mmol/L [facility] Carbon Dioxide 23 22 - 31 mmol/L [facility] Anion Gap 11 5 - 15 mmol/L [facility] Calcium 8.7 8.5 - 10.5 mg/dL [facility] Est Glomerular Filtration Rate 35(L) >=60 mL/min/1. 73 m?? [facility] Comment: The eGFR was calculated using the CKD-EPI equation. As with all creatinine based estimates of kidney function, eGFR values calculated with the CKD-EPI equation are not accurate in patients with acute kidney failure, extremes of body mass or the acutely ill. [email or web address], [email or web address] eGFR 40(L) >=60 mL/min/1. 73 m?? [facility] Comment: The eGFR was calculated using the CKD-EPI equation. As with all creatinine based estimates of kidney function, eGFR values calculated with the CKD-EPI equation are not accurate in patients with acute kidney failure, extremes of body mass or the acutely ill. [email or web address] Blood specimen (specimen) 02/21/2019 3:27 AM EST 02/21/2019 3:36 AM EST Narrative Resulting Agency Comment Spec In Lab Kaity Fontaine MD CHEMISTRY ORDERABLES [facility] [place] [address] * Differential, Automated (02/20/2019 5:45 PM EST) Neutrophil % 61.4 % [facility] Neutrophil Absolute 4.30 1.70 - 6.10 x10(3)/[facility] LAB[facility]AT[facility] Lymph % 25.4 % [facility] Lymphocytes Abs 1.8 0.9 - 3.2 x10(3)/[facility] LABOR[facility]ORY Monocyte % 6.7 % [facility] Monocyte Abs 0.5 0.3 - 0.9 x10(3)/[facility] LABORATORY Eos % 5.3 % [facility] Eosinophils Abs 0.4 0.0 - 0.4 x10(3)/[facility] LABORATORY Basophil % 0.9 % [facility] Baso Absolute 0.1 0.0 - 0.1 x10(3)/[facility] Immature Gran % 0.30 % [facility] Comment: Immature granulocytes(IG's)percentage and absolute count will include metamyelocytes, myelocytes, and promyelocytes. Blood smears from CBCs yielding IG's will be scanned manually for concordance. If this scan disagrees with the automated IG or if promyelocytes are noted, a manual differential will be performed. Immature Gran Absolute 0.02 0.00 - 0.04 x10(3)/[facility] Blood specimen (specimen) 02/20/2019 5:45 PM EST 02/20/2019 6:01 PM EST Narrative Resulting Agency Comment Spec In Lab Zenobia Quijano MD HEMATOLOGY ORDERABLE S [facility] [place] [address] * (ABNORMAL) Hemogram (02/20/2019 5:45 PM EST) [facility] White Blood Cell 7.0 4.0 - 9.5 x10(3)/mc L [facility] Red Blood Cell 3.50(L) 4.00 - 5.21 x10(6)/ L [facility] Hemoglobin 10.4(L) 11.7 - 15.5 gm/dL [facility] Hematocrit 33.0(L) 35.7 - 45.8 % [facility] Mean Cell Volume 94.3 82.6 - 94.4 [facility] Mean Cell Hemoglobin 29.7 27.1 - 32.[address] [facility] Mean Cell Hemoglobin Concentration 31.5(L) 31.7 - 35.0 gm/dL [facility] Platelet 349 145 - 357 x10(3)/mc L [facility] RDW Standard Deviation 46.7(H) 37.0 - 46.0 [facility] RDW coefficient of variation 13.5 11.5 - 14.1 % [facility] Mean Platelet Volume 10.0 7.6 - 12.9 [facility] NRBC% auto 0.0 % [facility] NRBC Absolute 0.000 0.000 - 0.000 x10(3)/ L [facility] Blood specimen (specimen) 02/20/2019 5:45 PM EST 02/20/2019 6:01 PM EST Narrative Resulting Agency Comment Spec In Lab Zenobia Quijano MD HEMATOLOGY ORDERABLE S [facility] [place] [address] * (ABNORMAL) BMP w/fasting Glucose (02/20/2019 5:45 PM EST) Glucose Fasting 134(H) 65 - 99 mg/dL [facility] Comment: ?Fasting* Glucose Interpretive Criteria Normal [...] of Diabetes Mellitus, Position Statement from the [employer]. ??Diabetes Care, Volume 33, Supplement 1, Apr 2009 Blood Urea Nitrogen 29(H) 8 - 18 mg/dL [facility] Creatinine 1.58(H) 0.70 - 1.20 mg/dL [facility] Sodium 142 135 - 145 mmol/L [facility] Potassium 5.0 3.5 - 5.0 mmol/L [facility] Comment: Please note: ??Patients with WBC >100,000 may have falsely elevated Potassium levels. ??For accurate Potassium quantification in these patients send serum separator tube (gold top) for subsequent determinations. ??Contact the Clinical Chemistry Laboratory if there are any questions. Chloride 106 98 - 107 mmol/L [facility] Carbon Dioxide 23 22 - 31 mmol/L [facility] Anion Gap 13 5 - 15 mmol/L [facility] Calcium 9.1 8.5 - 10.5 mg/dL [facility] Est Glomerular Filtration Rate 35(L) >=60 mL/min/1. 73 m?? [facility] Comment: The eGFR was calculated using the CKD-EPI equation. As with all creatinine based estimates of kidney function, eGFR values calculated with the CKD-EPI equation are not accurate in patients with acute kidney failure, extremes of body mass or the acutely ill. http://Captify/[facility] [place], [place] eGFR 41(L) >=60 mL/min/1. 73 m?? [facility] Comment: The eGFR was calculated using the CKD-EPI equation. As with all creatinine based estimates of kidney function, eGFR values calculated with the CKD-EPI equation are not accurate in patients with acute kidney failure, extremes of body mass or the acutely ill. [email or web address] [place], [place]kf Blood specimen (specimen) 02/20/2019 5:45 PM EST 02/20/2019 6:01 PM EST Narrative Resulting Agency Comment Spec In Lab Kaity Fontaine MD CHEMISTRY ORDERABLES Performing Organization Address [facility] Co de Phone Number [facility] [place] [address] * Anaerobic Culture (02/20/2019 5:42 PM EST) Anaerobic Culture No anaerobic organisms isolated [facility] Deep Wound INGUINAL REGION STRUCTURE / Unknown 02/20/2019 5:42 PM EST 02/20/2019 6:03 PM EST Comment:RIGHT GROIN DEEP WOU ND CULTURE Narrative Resulting Agency Comment Spec In Lab Kaity Fontaine MD MICROBIOLOGY - GENER AL ORDERABLES Performing Organization Address [facility] Co de Phone Number [facility] [place] [address] * (ABNORMAL) Abscess/Wound Aspirate Culture (02/20/2019 5:42 PM EST) Abscess/Wound Aspirate Culture Escherichia coli isolated from broth culture. Few Staphylococcus lugdunensis (A) [facility] Gram Stain Few Neutrophils seen Rare Gram Positive Cocci seen (A) [facility] Organism Escherichia coli(A) [facility] Organism Staphylococcus lugdunensis(A) [facility] Organism Gram Positive Cocci(A) [facility] Deep Wound INGUINAL REGION STRUCTURE / [...] Sensitive Comment:Gentamicin i s not appropriate for Mcintosh-therapy. Staphylococcus lugdunensis Levofloxacin MICROSCAN METHOD Sensitive Staphylococcus [...] METHOD Sensitive Kaity Fontaine MD MICROBIOLOGY - [facility] [place] [address] documented in this encounter Visit Diagnoses Not [...] Buccal, EVERY 30 MIN PRN, Starting on Mon02/28/19 [...] EVERY 8 HOURS SCHEDULED, First dose on Mon02/21/19 at 0930, Until Discontinued, Routine Given 03/01/2019 11:33 AM EST 5,000 Units Given 03/01/2019 4:50 AM EST 5,000 Units A bdominal Tissue Given 02/28/2019 8:32 PM EST 5,000 Units insulin lispro (HumaLOG) VIAL injection 3-12 Units [...] is Placeholder Medication., Starting on Mon02/20/19 at 2008, 1 dose, Until Mon03/01/19 at 1808, Patient [...] Given 02/27/2019 6:12 AM EST 125 mcg melatonin tablet 3 mg 3 mg, Oral, NIGHTLY, First dose on 02/24/19 at 2200, Until Discontinued, Routine Given 02/28/2019 8:32 PM EST 3 mg Given 02/27/2019 10:28 PM EST 3 mg Given 02/26/2019 8:20 PM EST 3 mg ondansetron (ZOFRAN) injection 4-8 mg 4-8 mg, Intravenous, EVERY 8 HOURS PRN, Starting on 02/20/19 at 2056, Until Mon03/01/19 at 1808, Nausea, [...] Given 02/27/2019 8:33 AM EST 40 mg polyethylene glycol (MIRALAX) packet 17 g 17 [...] Given 02/25/2019 5:30 PM EST 40 mg documented in this encounter Active and Recently Administered Medications Times are shown in EST. Scheduled Medication Order 02/27/2019 02/28/2019 03/01/2019 aspirin EC tablet 81 mg 81 mg, Oral, DAILY, First dose on Mon02/20/19 at 2045, Until Discontinued, Routine 1155 (Given - Provider: Gogo Terrell RN - Comment: held for surgery)1718 (JUN Hold - Provider: Admin Adt - Reason: Transfer to a Procedural area)1903 (MAR Unhold - Provider: Admin Adt) 0810 (Given - Provider: Hilton Montez RN) 0831 (Given - Provider: Toni Calabrese, TAMEKA) carvedilol (COREG) tablet 1.56 mg 1.56 mg, Oral, 2 TIMES DAILY WITH MEALS, First dose on Mon02/20/19 at 2200, Until Discontinued, Hold for HR<60 or BP<100, Routine 0832 (Not Given - Provider: Gogo Terrell RN - Reason: Order parameters not met)1700 (Not Given - Provider: Gogo Terrell RN - Reason: Order parameters not met)1718 (MAR Hold - Provider: Admin Adt - Reason: Transfer to a Procedural area)1903 (MAR Unhold - Provider: Admin Adt) 0800 (Not [...] 0832 (Given - Provider: Gogo Terrell RN)171 (JUN Hold - Provider: Admin Adt - Reason: Transfer to a Procedural area)190 ([facility] Unhold - Provider: Admin Adt)2040 (Given - Provider: Raj Saldana RN) 0809 (Given - Provider: Hilton Montez, TAMEKA)2031 (Given - Provider: Claudine Peace, TAMEKA) 0831 (Given - Provider: Toni Calabrese, TAMEKA) docusate sodium (COLACE) capsule 100 mg 100 mg, Oral, 2 TIMES DAILY, First dose on Mon02/26/19 at 1245, Until Discontinued, Routine 0834 (Given - Provider: Gogo Terrell RN)171 ([facility] Hold - Provider: Admin Adt - Reason: Transfer to a Procedural area)190 ([facility] Unhold - Provider: Admin Adt)2039 (Given - Provider: Raj Saldana RN) 0809 (Given - Provider: Hilton Montez, TAMEKA)2031 (Given - Provider: Claudine Peace, TAMEKA) 0831 (Not Given - Provider: Toni Calabrese RN - Reason: Patient/family refused) heparin (Porcine) subcutaneous injection 5,000 Units 5,000 Units, Subcutaneous, EVERY 8 HOURS SCHEDULED, First dose on Mon02/21/19 at 0930, Until Discontinued, Routine 0432 (Given - Provider: Raj Saldana, TAMEKA)1154 (Given - Provider: Gogo Terrell RN)171 ([facility] Hold - Provider: Admin Adt - Reason: Transfer to a Procedural area)190 ([facility] Unhold - Provider: Admin Adt)2039 (Given - Provider: Raj Saldana RN) 0307 (Given - Provider: Raj Saldana, TAMEKA)1233 (Given - Provider: Hilton Montez, TAMEKA)2031 (Given - Provider: Claudine Peace, TAMEKA) 0450 (Given - Provider: Claudine Peace, TAMEKA)1133 (Given - Provider: Toni Calabrese, TAMEKA) insulin lispro (HumaLOG) VIAL injection 3-12 Units(Linked [...] own pump)1130 (Not Given - Provider: Toni Calabrese RN - Reason: See comment - Comment: pt self administers) levothyroxine (SYNTHROID) tablet 125 mcg 125 mcg, Oral, EVERY MORNING, First dose on Mon02/21/19 at 0600, Until Discontinued, Routine 0612 (Given - Provider: Raj Saldana RN)1718 (MAR Hold - Provider: Admin Adt - Reason: Transfer to a Procedural area)1903 ([facility] Unhold - Provider: Admin Adt) 0530 (Given - Provider: Raj Saldana RN) 0557 (Given - Provider: Claudine Peace RN) losartan (COZAAR) tablet 50 mg (CANCELED) 50 mg, Oral, DAILY, First dose on Meseret 02/21/19 at 0900, Until Discontinued, Routine 0834 (Given - Provider: Gogo Terrell RN)1718 (MAR Hold - Provider: Admin Adt - Reason: Transfer to a Procedural area)1903 (MAR Unhold - Provider: Admin Adt) 0810 (Given - Provider: Hilton Montez RN) melatonin tablet 3 mg 3 mg, Oral, NIGHTLY, First dose on Mon02/24/19 at 2200, Until Discontinued, Routine 1718 (MAR Hold - Provider: Admin Adt - Reason: Transfer to a Procedural area)1903 ([facility] Unhold - Provider: Admin Adt)2228 (Given - Provider: Raj Saldana, RN) 2031 (Given - Provider: Claudine Peace RN) pantoprazole (PROTONIX) tablet 40 mg 40 mg, Oral, DAILY, First dose on Mon02/21/19 at 0900, Until Discontinued, DO NOT CRUSH OR OPEN, Routine 0833 (Given - Provider: Gogo Terrell RN)171 ([facility] Hold - Provider: Admin Adt - Reason: Transfer to a Procedural area)190 ([facility] Unhold - Provider: Admin Adt) 0810 (Given - Provider: Hilton Montez, RN) 0831 (Given - Provider: Toni Calabrese, TAMEKA) polyethylene glycol (MIRALAX) packet 17 g 17 g, Oral, DAILY, First dose on Mon02/26/19 at 1245, Until Discontinued, Routine 0900 (Not Given - Provider: Gogo Terrell RN - Reason: NPO)171 ([facility] Hold - Provider: Admin Adt - Reason: Transfer to a Procedural area)190 ([facility] Unhold - Provider: Admin Adt) 0900 (Not Given - Provider: Hilton Montez RN - Reason: Patient/family refused) 0900 (Not Given - Provider: Toni Calabrese RN - Reason: Patient/family refused) simvastatin (ZOCOR) tablet 40 mg 40 mg, Oral, EVERY EVENING, First dose on Mon02/20/19 at 2230, Until Discontinued 1700 (Not Given - Provider: Gogo Terrell RN - Reason: Patient/family refused)171 ([facility] Hold - Provider: Admin Adt - Reason: Transfer to a Procedural area)190 ([facility] Unhold - Provider: Admin Adt) 1642 (Given - Provider: Hilton Montez, RN) sodium chloride 0.9% 500 mL IV bolus (COMPLETED) at 250 mL/hr, Intravenous, ONCE, 1 dose, On Mon02/28/19 at 0530 0529 (New Bag - Provider: Raj Saldana, RN)0729 (Stopped - Provider: Hilton Montez, RN) sodium chloride 0.9% 500 mL IV bolus (COMPLETED) at 250 mL/hr, Intravenous, ONCE, 1 dose, On Mon03/01/19 at 0730 0910 (New Bag - Provider: Toni Calabrese, RN)1110 (Stopped - Provider: Toni Calabrese, TAMEKA) PRN Medication Order 02/27/2019 02/28/2019 03/01/2019 acetaminophen (TYLENOL) tablet 650 mg 650 mg, Oral, EVERY 4 HOURS PRN, Starting on Mon02/20/19 at 1738, Until Mon03/01/19 at 1808, Pain, Maximum dose of acetaminophen is 4000 mg from all sources in 24 hours., Routine 1718 (JUN Hold - Provider: Admin Adt - Reason: Transfer to a Procedural area)1903 (JUN Unhold - Provider: Admin Adt)2227 (Given - Provider: Raj Saldana, RN) 030 (Given - Provider: Raj Saldana, TAMEKA)2032 (Given - Provider: Claudine Peace RN) dextrose 10% infusion (CANCELED)(Linked Group 2) 250 mL, at 1,000 mL/hr, Intravenous, EVERY 30 MIN PRN, Starting on Mon02/20/19 at 2008, Until Mon02/28/19 at 1949, For BG 50-70 mg/dL: Oral [...] (Due: Stopped - Provider: Gogo Terrell RN)1718 (JUN Hold - Provider: Admin Adt - Reason: Transfer to a Procedural area)190 (JUN Unhold - Provider: Admin Adt) dextrose 10% [...] Buccal, EVERY 30 MIN PRN, Starting on Mon02/28/19 [...] Pump Bolus (Units))., Medication Name: aspart (Novolog) 1718 (JUN Hold - Provider: Admin Adt - Reason: Transfer to a Procedural area)190 ([facility] Unhold - Provider: Admin Adt) ondansetron (ZOFRAN) injection 4-8 mg(Linked Group 4) 4-8 mg, Intravenous, EVERY 8 HOURS PRN, Starting on Mon02/20/19 at 2056, Until Mon03/01/19 at 1808, Nausea, Start with 4mg and if ineffective in 30 minutes, give an additional 4mg 1717 ([facility] Hold - Provider: Admin Adt - Reason: Transfer to a Procedural area)1902 ([facility] Unhold - Provider: Admin Adt) ondansetron (ZOFRAN) tablet 4-8 mg(Linked Group 4) 4-8 mg, Oral, EVERY 8 HOURS PRN, Starting on Mon02/20/19 at 2056, Until Mon03/01/19 at 1808, Nausea, Vomiting, If multiple antiemetics are ordered, use ondansetron first. PO Preferred. If patient unable to take PO, may give IV if ordered. May repeat times one in 45 minutes if ineffective. , Routine 1717 ([facility] Hold - Provider: Admin Adt - Reason: Transfer to a Procedural area)1902 ([facility] Unhold - Provider: Admin Adt) oxyCODONE (ROXICODONE) immediate release tablet 5 mg 5 mg, Oral, EVERY 4 HOURS PRN, Starting on Mon02/20/19 at 1738, Until Mon03/01/19 at 1808, Pain, Routine 1717 ([facility] Hold - Provider: Admin Adt - Reason: Transfer to a Procedural area)190 ([facility] Unhold - Provider: Admin Adt) Linked Groups [...] Mon02/20/19 at 2007, Until Mon02/28/19 at 194, Low blood sugar, For BG 50-70 mg/dL: [...] at 2007, Until Meseret 02/28/19 at 1949, Low blood sugar, For BG [...] 8 HOURS PRN, Starting on Mon02/20/19 at 205, Until Mon03/01/19 at 1808, Nausea, Start with 4mg and if ineffective in 30 minutes, give an additional 4mg documented in this encounter Care Teams 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
--- OUTSIDE RECORDS SUMMARY | 2023-12-13 18:25 | XMS_ITS | Encounter Summary ---
[place] [address] Care Team Providers Care Motion Picture Cameraman Name Role Phone Shirley Yu MD Primary Care Provider [phone] Reason for Visit * Auth/Cert Specialty Diagnoses / Procedures Referred By Dominik mcleod Referred To Contact Diagnoses Groin hematoma right groin hematoma n/a n/a Procedures PRO BLOOD/LYMPH SYSTEM PROCEDURE EXPLORATION GROIN W\DRAIN & DEBRIDE LYMPHOCELE (WRVU *) Referral ID Status Reason Start Date Expiration Date Visits Re quested Visits Authorized [id number] 1 1 Encounter Details Date Type Department Care Team (Late st Contact Info) Description 02/27/2019 1:40 PM EST - 02/27/2019 3:07 PM EST Surgery [place] [phone] Patricia Jensen MD [facility] [place] [address] DEBRIDEMENT SKIN AND SUBCU, LOWER EXTREMITY (WRVU [...] Sign Reading Time Taken Comments Blood Pressure 106/54 02/27/2019 11:21 AM EST Pulse 55 02/27/2019 8:32 AM EST Temperature 36.9 ??C (98.4 ??F) 02/27/2019 11:[address] Respiratory Rate 15 02/27/2019 11:21 AM EST Oxygen Saturation 95% 02/27/2019 2:00 PM EST Inhaled Oxygen Concentration - - Weight 95.5 kg (210 lb 8 oz) 02/26/2019 4:21 PM EST Height 170.2 cm (5' 7) 02/20/2019 2:32 PM EST Body Mass Index 32.3 02/28/2019 7:42 AM EST documented in this encounter Discharge Summaries * Nathaly Victor APRN - 03/01/2019 12:40 PM EST Inpatient - Discharge Summary Patient Name: Jennifer Branch Patient Age: 58 y.o. Birthdate: 1960 Admit date: 02/20/2019 Discharge date and time: 03/01/2019 Attending Physician: Jaxon Fontaine MD Discharging Provider: Nathaly Victor APRN [...] Bridget Dominguez MD; DILATION AND TEST, RUSSELL; TECH, RUSSELL Ophthalmology at [facility] Arrive at: Triage Specialist Area [phone] Future Orders Complete By Expires SHEFALI, legs, multiple levels [VAS8 Custom] 03/31/2019 (Approximate) 06/30/2019 Process Instructions: There is no in-house vascular labels molder available on weeknights (5pm-8am), weekends, or holidays. IF THIS IS A REQUEST FOR AN EMERGENT STUDY DURING THOSE HOURS, please have the senior provider responsible for the patient page the Vascular Surgery Fellow/Senior Resident risk reduction counselor to discuss options. Scheduling Instructions: Questions: Indication for study/signs & symptoms: PAD Question to be answered: change in blood flow to feet Preferred location?: [facility] Arterial Duplex Leg, Unil [VAS32 Custom] 03/31/2019 (Approximate) 09/30/2019 Process Instructions: There is no in-house vascular labels molder available on weeknights (5pm-8am), weekends, or holidays. IF THIS IS A REQUEST FOR AN EMERGENT STUDY DURING THOSE HOURS, please have the senior provider responsible for the patient page the Vascular Surgery Fellow/Senior Resident risk reduction counselor to discuss options. Scheduling Instructions: Questions: Indication for study/signs & symptoms: s/p RIGHT fem-pop proximal anastomosis redo, ? change Question to be answered: patency Laterality: Right Is there a RIGHT LOWER EXTREMITY graft?: Yes RIGHT Graft Location: fem pop Preferred location?: [facility] Referral to Home Health - at DISCHARGE [[id number] CPT(R)] As directed Process Instructions: Scheduling Instructions: Comments: DOCUMENTATION FOR VNA SERVICES (INCLUDING THOSE PATIENTS WITH MEDICARE COVERAGE REQUIRING HOME VNA SERVICES AND/OR HOSPICE SERVICES) PATIENT'S LOCATION: Jennifer Branch [address] [place] [phone] (home) Cell: No relevant phone numbers on file. Rn Stars's Name: self In discussion with the attending physician, it is certified that this patient is under their care and that they, or a Nurse Practitioner,Clinical Nurse specialist or Physician Photographic Engineer who is working directly with them, had [...] for managing ADL's. HOME HEALTH CARE AGENCY: [facility] PHONE: [phone] FAX: [phone] Start of care: 24-48 hours post discharge [...] Shirley Yu MD [address] / [place] [address] All VNA agencies which cover the area of patient's residence have been reviewed, either verbally christo writing, and patient/family have chosen the home health care agency noted Questions: Agency name and contact information: [facility] Patient location post discharge: [facility] What services are requested: Registered Nurse Start [...] Diabetic Supplies, Miscellan. Misc Form faxed to [employer] for pump supplies. Quantity: 100 each Refills: [...] For any problems or questions please call [phone] BREONNA Hou, ground host/hostess Nurse Clinician For issues on weeknights after 5pm and weekends please call [phone] and ask for the Vascular Fellow risk reduction counselor. documented in this encounter Discharge Instructions * Patient Instructions* Nathaly Victor, SCR[employer] PRODUCT OWNER - 02/22/2019 7:43 AM EST Patient Instructions [...] For any problems or questions please call [phone] BREONNA Hou, ground host/hostess Nurse Clinician For issues on weeknights after 5pm and weekends please call [phone] and ask for the Vascular Fellow risk reduction counselor. documented in this encounter Medications at Time [...] TWICE A DAY 98 07/26/2016 Diabetic Supplies, [employer]. Misc Form faxed to [employer] for pump supplies. 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 A letter describing our affiliations was reviewed with them and they were educated about their right to choose where referrals are placed. Patient requests referral to: [facility] Expected date of discharge: 03/01. Referral routed to the Helmet Hat Brim Cutter for matching with agency/vendor and to provide any required information. * Arturo Castro - 03/01/2019 3:54 AM EST Respiratory Therapy NIV Note NIV Settings: NIV Mode: CPAP PEEP/CPAP (cm H2O): 12 cm H20 NIV Measurements: Resp: 16 Mve: 7 Leak (L/min): 34 L/min Vte: 427 SpO2: 95 % Laboratory: Lab Results Component Value Date/Time PHART 7.35 02/04/2019 03:26 PM [id number] 39 02/04/2019 03:26 PM PO2ART 82 (L) 02/04/2019 03:26 PM AEP0GEP 21.3 02/04/2019 03:26 PM BEART -4.6 (L) [...] up while inpatient MARY CHUA Beeper #: [phone] * Nathaly Victor APRN - 02/28/2019 7:09 [...] mazariegos -vac change tomorrow at bedside Anticoagulation: H DVT Prophylaxis Antiplatelet: SANJIV Victor APRN 02/28/2019 Pager: [phone] * NeerajrArturo - 02/28/2019 4:06 AM EST Respiratory Therapy NIV Note NIV Settings: HOME CPAP NIV Mode: CPAP PEEP/CPAP (cm H2O): 12 cm H20 NIV Measurements: Resp: 16 Mve: 7 Leak (L/min): 34 L/min Vte: 427 SpO2: 96 % Laboratory: Lab Results Component Value Date/Time PHART 7.35 02/04/2019 03:26 PM [id number] 39 02/04/2019 03:26 PM PO2ART 82 (L) 02/04/2019 03:26 PM KQL2YMY 21.3 02/04/2019 03:26 PM BEART -4.6 (L) [...] Marked ready for visitation per pt request. 183- Report called to TAMEKA Bowens receiving pt [...] Prophylaxis Antiplatelet: SANJIV Nolan MD 02/27/2019 Pager: [phone] * Eva Gomes RN - 02/26/2019 10:19 [...] VAC Therapy Insurance auth faxed back to [facility]. Ready for poultry picker from distribution on Monday. [facility] ordered for wound vac changes. Confirmed availability with Angelina from [facility]. . Care Management will continue to monitor progress, follow for continuity of care, and assist with discharge planning. Key Person: Eva Gomes Pager [phone] * Nathaly Victor APRN - 02/26/2019 7:52 [...] and well perfused ?? Labs: Recent Labs 02/26/1944202/25/1933302/24/19 0352 WBC 6.8 6.5 6.5 HGB 10.9* [...] change tomorrow -NPO after MN tonight. Anticoagulation: [facility] DVT Prophylaxis Antiplatelet: SANJIV Victor APRN 02/26/2019 Pager: [phone] * Brielle Solano RN - 02/25/2019 1:28 [...] incase patent goes home with vac. 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 A letter describing our affiliations was reviewed with them and they were educated about their right to choose where referrals are placed. Patient requests referral to : [facility] for wound vac [facility] Expected date of discharge: 1-2 days. Referral routed to the Helmet Hat Brim Cutter for matching with agency/vendor and to provide any required information. ICare Management will continue to monitor progress, follow for continuity of care, and assist with discharge planning. Key Person: Eva Gomes Pager [phone] * Nathaly Victor APRN - 02/25/2019 11:04 [...] diet (Give Meds) for OR today. Anticoagulation: [facility] DVT Prophylaxis Antiplatelet: ASA Nathaly Victor APRN 02/25/2019 Pager: [phone] * Nathaly Victor APRN - 02/25/2019 7:09 [...] diet (Give Meds) for OR today. Anticoagulation: [facility] DVT Prophylaxis Antiplatelet: SANJIV Victor APRN 02/25/2019 Pager: [phone] * Tamiko De La O, RN - 02/24/2019 3:11 PM EST This [...] and well perfused ?? Labs: Recent Labs 02/23/192 02/22/1934002/21/19326 WBC 6.0 6.0 7.1 HGB 10.8* 10.2* [...] Antiplatelet: ASA Servando Nolan MD 02/23/2019 Pager: [phone] * Servando Nolan MD - 02/23/2019 11:58 [...] Prophylaxis Antiplatelet: SANJIV Nolan MD 02/23/2019 Pager: [phone] * Vinay Celeste RN - 02/22/2019 5:42 [...] up cultures -to OR today -NPO Anticoagulation: [facility] DVT Prophylaxis Antiplatelet: SANJIV Victor APRN 02/22/2019 Pager: [phone] * Jessica Maria RCP - 02/22/2019 3:41 [...] and well perfused ?? Labs: Recent Labs 02/21/19 03202/20/19 1745 WBC 7.1 7.0 HGB 9.9* 10.4* HCT 31.9* 33.0* PLATELET 331 349 Recent Labs 02/21/19 03202/20/19 1745 NA 141 142 K 4.8 5.0 [...] Prophylaxis Antiplatelet: SANJIV Victor APRN 02/21/2019 Pager: [phone] * Clinton Pierre RRT - 02/21/2019 12:22 [...] with overnight NIV use. Clinton Pierre RRT S * Milton Grider MD - 02/20/2019 8:17 [...] DM controlled diet Milton Grider MD * Jocye Fierro RN - 02/20/2019 6:36 PM EST [...] hospital and thus didnot bring extra. Vascular director internal control Dr. Marni mckeon. 1999 Dr Grider to [...] file Gets together: Not on file Attends shinto service: Not on file Active member of [...] Diabetic Supplies, Miscellan. Misc Form faxed to [employer] for pump supplies. 100 each 12 ??? [...] MD, MS Vascular surgery fellow Service pager [phone] documented in this encounter Miscellaneous Notes * [...] Appropriate) 02/28/19 1527 Interdisciplinary Rounds/Family Conf Participants patient;family;nursing;family independence case manager * Plan of Care - [...] Appropriate) 02/25/19 1753 Interdisciplinary Rounds/Family Conf Participants family independence case manager;physical therapy;physician;nursing Problem: Skin Integrity Impairment, [...] Jensen MD - 02/27/2019 6:20 PM EST [facility] Operative Note Patient Name: Jennifer Branch : [id number] MR#: [id number] Case Date: 02/27/2019 Surgeon: Surgeon(s) and Role: [...] sugar up as she cannot eat/drink, see JUN. Wound vac to right groin CDI at [...] and ADLs]: independent Surveillance [continuous indirect monitoring]: Gordy, purposeful rounding Patient-specific fall prevention interventions for [...] Appropriate) 02/25/19 1753 Interdisciplinary Rounds/Family Conf Participants family independence case manager;physical therapy;physician;nursing Problem: Skin Integrity Impairment, [...] (Interventions Implemented as Appropriate) 02/25/19 1756 02/26/19 0725 Coping/Psychosocial Plan Of Care Reviewed With -- [...] sign off. Ayo Carbone PT, DPT Pager [phone] Inpatient Rehabilitation * Plan of Care - Nancy Medellin OT - 02/26/2019 10:55 AM EST [...] & DEBRIDE LYMPHOCELE (WRVU *) performed by Jaxon Fontaine MD at [facility] MAIN OR ??? PRO BRONCHOSCOPY, DIAGNOSTIC N/A 06/21/2018 BRONCHOSCOPY, DIAGNOSTIC (WRVU 2.78) performed by César Escobar MD at [facility] MAIN OR ? ? PRO DEBRIDEMENT SUBCUTANEOUS TISSUE 20 SQCM/< Right 02/22/2019 DEBRIDEMENT SKIN AND SUBCU, LOWER EXTREMITY (WRVU 1.01) [facility] ? ? PRO DEBRIDEMENT SUBCUTANEOUS TISSUE 20 SQCM/< Right 02/25/2019 DEBRIDEMENT SKIN AND SUBCU, LOWER EXTREMITY (WRVU 1.01) performed by Jaxon Fontaine MD at [facility] EMMETT ? ? PRO EDG FLEXIBLE TRANSORAL ABLATE TUMOR POLYP/LESION W/DILATION & WIRE N/A 06/22/2016 EGD, TRANSORAL; WITH ABLATION OF TUMOR(S), POLYP(S), OR OTHER LESION(S) (WRVU 4.26) performed by Christos Donald MD at [facility] ENDOSCOPY ??? PRO INJECT NERV BLCK, INTERCOST, MULTPL Right 06/21/2018 NERVE BLOCK, INTERCOSTAL NERVE, MULTIPLE (WRVU 1.68) [facility] ??? PRO REOPERATION, BYPASS GRAFT Right 02/04/2019 @RE-OP FOR RE-DO LOWER EXTREMITY BYPASS GRAFT, >1 MONTH P\ ORIGINAL SURGERY, ADD-ON CODE (WRVU 3.08) performed by Jaxon Fontaine MD at [facility] MAIN OR ??? PRO THORACOSCOPY WITH THERAPEUTIC WEDGE RESECTION INITIAL UNILAT Right 06/21/2018 @THORACOSCOPY, SURG; W/THERAPEUTIC WEDGE RESECTION, INIT UNILATERAL (WRVU 14.5) performed by César Escobar MD at [facility] MAIN OR ??? PRO THROMBOENDARTECTMY FEMORAL COMMON Right 02/04/2019 @ENDARTERECTOMY, COMMON FEMORAL W OR W/O PATCH GRAFT (WRVU 15.31) performed by Jaxon Fontaine MD [facility] MAIN OR ??? PRO THROMBOENDARTECTMY FEMORAL DEEP Right 02/04/2019 @ENDARTERECTOMY, PROFUNDAPLASTY, DEEP, PROFUNDA FEMORIS W OR W/O PATCH GRAFT (WRVU 18.58) performedby Jaxon Fontaine MD at [facility] MAIN OR ??? PRO TX EXTENSIVE RETINOPATHY, PHOTOCOAGULATION Left 2017 PRP OS - [place], [place] ??? PRO UPPER GI ENDOSCOPY, BIOPSY N/A 10/24/2016 UPPER GASTROINTESTINAL ENDOSCOPY,WITH BIOPSY SINGLE OR MULTIPLE (WRVU 2.49) performed by Agapito Parmar MD at [facility] ENDOSCOPY ??? PRO UPPER GI ENDOSCOPY, DIAGNOSTIC N/A 06/22/2016 EGD, UPPER GI ENDOSCOPY performed by Christos Donald MD at [facility] ENDOSCOPY ??? RETINAL LASER SURGERY [...] SFA stents ??? VASCULAR SURGERY 1009 Right HOME HEALTH RN-AK pop vein graft ??? VS ARTERIOGRAM LOWER EXTREMITY VASCULAR SURGERY 04/27/2018 VS Arteriogram Lower Extremity Vascular Surgery 04/27/2018 Jaxon Fontaine MD [facility] INTERVENTIONL RAD ??? YAG CAPSULOTOMY [...] well. She has had no falls at [facility]. Precautions/Special Considerations: insulin pump, groin incision, [...] and measurable assessment of functional outcome. Pager: [phone] NANCY MEDELLIN OT 02/26/2019 Occupational Therapy Rehabilitation Department [...] More Personalized Care? none -- -- 02/25/19 175 Individualization Patient Specific Goals -- Patient Specific [...] Appropriate) 02/25/19 1753 Interdisciplinary Rounds/Family Conf Participants family independence case manager;physical therapy;physician;nursing Problem: Skin Integrity Impairment, [...] (Interventions Implemented as Appropriate) 02/25/19 0749 02/25/19 0386 Coping/Psychosocial Plan Of Care Reviewed With patient [...] Wall MD - 02/25/2019 12:28 PM EST [facility] Operative Note Patient Name: Jennifer Branch : [id number] MR#: [id number] Case Date: 02/25/2019 Surgeon: Surgeon(s) and Role: * Jaxon Fontaine MD - Primary * Emeli Wall [...] Emeli Wall MD 02/25/2019 Associated attestation - Jaxon Fontaine MD - 03/04/2019 1:51 PM EST Attestation: Case Date: 02/27/2019 I was present and I participated during the entire procedure (does not need to include opening and closing). Jaxon Fontaine MD 03/04/2019 * Plan of Care [...] Skin Interventions Skin Protection -- adhesive use limited;fhec-po-bdarkl areas padded;transparent dressing maintained;tubing/devices free from skin [...] Ongoing (Interventions Implemented as Appropriate) 02/23/19 1634 02/23/191929 Coping/Psychosocial Plan Of Care Reviewed With -- [...] Control Outcome: Ongoing (Interventions Implemented as Appropriate) 02/23/190 Safety Interventions Isolation Precautions standard precautions maintained [...] progress toward outcome * Op Note - Jaxon Fontaine MD - 02/22/2019 4:03 PM EST [facility] Operative Note Patient Name: Jennifer Branch : [id number] MR#: [id number] Case Date: 02/22/19 Surgeon: Surgeon(s) and Role: * Jaxon Fontaine MD - primary surgeon Preoperative diagnosis: [...] of the dressing was changed. Wound wasleft INTELLIGENCE CLERK on the top, closed on the bottom, [...] Admission: ??? Groin hematoma Patient was at [facility] mid January. Patient receiving hospital care under IPI- SDP Admission (IP) status. Admission order reviewed. 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 Waiting for report from vascular. greige goods marker/Hand Driller will continue to follow patient???s progress and remain available if situation changes for coordination of care, psychosocial support and/or discharge planning. Eva Gomes RN Pager [phone] * Consult Note - Loretta Barkley RPH - 02/21/2019 9:27 AM EST Clinical Pharmacist Note - VancFD Jennifer Branch [id number] 1960 Jennifer Branch is a 58 y.o. [...] have. Alternately,during off-hours (9p-7a) you may call [phone] to contact a pharmacist. Loretta Barkley RPH [...] cathed at 0330 for 800. D/t void [id number]. CPAP on for MANISH. Pt using own [...] Quijano MD - 02/20/2019 5:31 PM EST [facility] Operative Note Patient Name: Jennifer Branch : [id number] MR#: [id number] Case Date: 02/20/2019 Surgeon: Surgeon(s) and Role: * Jaxon Fontaine MD - Primary * Zenobia Quijano [...] Zenobia Quijano MD 02/20/2019 Associated attestation - Jaxon Fontaine MD - 03/04/2019 1:28 PM EST Attestation: Case Date: 02/27/2019 I was present and I participated during the entire procedure (does not need to include opening and closing). Jaxon Fontaine MD 03/04/2019 documented in this encounter Plan of Treatment Upcoming Encounters Date Type Department Care Team (Late st Contact Info) Description 12/19/2023 1:00 PM EDT Tech Visit [place] [address] Marguerite Macias 12/19/2023 3:00 PM EDT Office Visit [place] [address] Gardenia Golden APRN [facility] [place] [place] [address] 01/29/2024 1:[address] [place] [address] César Escobar MD [facility] [place] [address] 01/29/2024 2:30 PM EDT Office Visit [place] [phone] César Escobar MD [facility] [place] [address] documented as of this encounter Procedures Procedure [...] AM EST Unlisted Px Abdomen Musculoskeletal System (06351) 02/27/2019 5:18 PM EST right groin wound infection Debridement, Skin, Sub-Q Tissue (34014) 02/27/2019 5:18 PM EST right groin wound [...] AUTO DIFF Routine 9 4:43 AM EST BMP W/FASTING GLUCOSE Routine 02/25/2019 3:34 AM [...] AUTO DIFF Routine 9 3:22 AM EST POCT GLUCOSE Routine 02/22/2019 [...] 02/21/2019 3:27 AM EST DIFFERENTIAL, AUTOMATED Routine 02/22/20 3:27 AM EST HC CBC,PLT & AUTO [...] Text Report Department: Vascular Surgery Lab Patient: [id number] (JENNIFER BRANCH) CPT: 00911 ICD10: I73.9 Referring Physician: NATHALY VICTOR ?? [...] following her exam. Electronically Signed by: JAXON FONTAINE MD on 2019-04-01 02:18:35 PM VASCUBASE VB Text Report End of Report VASCUBASE 04/01/2019 1:05 PM EST Nathaly Victor APRN VASCULAR ORDERABLE S VASCUBASE * SHEFALI, legs, multiple levels (04/01/2019 1:05 PM EST) VB Text Report Department: Vascular Surgery Lab Patient: [id number] (JENNIFER BRANCH) CPT: 44403 ICD10: I73.9 Referring Physician: NATHALY VICTOR ?? [...] Dorsalis Pedis (Ankle) Artery ?102 ? 0.56 ??[place]-Biphasic ? Posterior Tibial (Ankle) Artery ??109 ? 0.60 ??[place]-Biphasic ? Great Toe ?65 ? 0.36 ?? [...] following her exam. Electronically Signed by: JAXON FONTAINE MD on 2019-04-01 02:19:02 PM VASCUBASE VB Text Report End of Report VASCUBASE 04/01/2019 1:05 PM EST Nathaly Victor APRN VASCULAR ORDERABLE S VASCUBASE * (ABNORMAL) POCT Glucose (03/01/2019 11:31 AM EST) Glucose, POC 304(H) 65 - 199 mg/dL [facility] Comment: Supplemental ranges: <140 mg/dL before meals <180 mg/dL all other times of the day Blood specimen (specimen) 03/01/2019 11:31 AM EST 03/01/2019 11:31 AM EST Jaxon Fontaine MD POINT OF CARE TEST O RDERABLES Performing Organization Address [facility] Co de Phone Number [facility] [place] [address] * POCT Glucose (03/01/2019 8:27 AM EST) Glucose, POC 167 65 - 199 mg/dL [facility] Comment: Supplemental ranges: <140 mg/dL before meals <180 mg/dL all other times of the day Blood specimen (specimen) 03/01/2019 8:27 AM EST 03/01/2019 8:27 AM EST Jaxon Fontaine MD POINT OF CARE TEST O RDERAJOHN Performing Organization Address [facility] Co de Phone Number [facility] [place] [address] * POCT Glucose (03/01/2019 4:04 AM EST) Glucose, POC 145 65 - 199 mg/dL [facility] Comment: Supplemental ranges: <140 mg/dL before meals <180 mg/dL all other times of the day Blood specimen (specimen) 03/01/2019 4:04 AM EST 03/01/2019 4:04 AM EST Jaxon Fontaine MD POINT OF CARE TEST O RDERAJOHN Performing Organization Address [facility] Co de Phone Number [facility] [place] [address] * Differential, Automated (03/01/2019 4:04 AM EST) Neutrophil % 55.7 % [facility] Neutrophil Absolute 4.99 1.70 - 6.10 x10(3)/mcL [facility] Lymph % 32.0 % [facility] Lymphocytes Abs 2.9 0.9 - 3.2 x10(3)/[facility] Monocyte % 7.3 % [facility] Monocyte Abs 0.6 0.3 - 0.9 x10(3)/[facility] Eos % 4.1 % [facility] Eosinophils Abs 0.4 0.0 - 0.4 x10(3)/[facility] Basophil % 0.7 % [facility] Baso Absolute 0.1 0.0 - 0.1 x10(3)/[facility] Immature Gran % 0.20 % [facility] Comment: Immature granulocytes(IG's)percentage and absolute count will include metamyelocytes, myelocytes, and promyelocytes. Blood smears from CBCs yielding IG's will be scanned manually for concordance. If this scan disagrees with the automated IG or if promyelocytes are noted, a manual differential will be performed. Immature Gran Absolute 0.02 0.00 - 0.04 x10(3)/[facility] Blood specimen (specimen) 03/01/2019 4:04 AM EST 03/01/2019 4:19 AM EST Narrative Resulting Agency Comment Spec In Lab Emeli Wall MD HEMATOLOGY ORDERAB LES Performing Organization Address City/State/[facility] [facility] Co de Phone Number [facility] [place] [address] * (ABNORMAL) Hemogram (03/01/2019 4:04 AM EST) White Blood Cell 9.0 4.0 - 9.5 x10(3)/mc L [facility] Red Blood Cell 3.48(L) 4.00 - 5.21 x10(6)/mc L [facility] Hemoglobin 10.1(L) 11.7 - 15.5 gm/dL [facility] Hematocrit 33.1(L) 35.7 - 45.8 % [facility] Mean Cell Volume 95.1(H) 82.6 - 94.4 fL [facility] Mean Cell Hemoglobin 29.0 27.1 - 32.0 pg [facility] Mean Cell Hemoglobin Concentration 30.5(L) 31.7 - 35.0 gm/dL [facility] Platelet 276 145 - 357 x10(3)/mc L [facility] RDW Standard Deviation 47.8(H) 37.0 - 46.0 fL [facility] RDW coefficient of variation 13.6 11.5 - 14.1 % [facility] [place] Mean Platelet Volume 10.5 7.6 - 12.9 fL [facility] NRBC% auto 0.0 % [facility] NRBC Absolute 0.000 0.000 - 0.000 x10(3)/mc L [facility] Blood specimen (specimen) 03/01/2019 4:04 AM EST 03/01/2019 4:19 AM EST Narrative Resulting Agency Comment Spec In Lab Emeli Wall MD HEMATOLOGY ORDERAB LES Performing Organization Address City/State/[facility] Co de Phone Number [facility] [place] [address] * (ABNORMAL) BMP w/fasting Glucose (03/01/2019 4:04 AM EST) Glucose Fasting 145(H) 65 - 99 mg/dL [facility] Comment: ?Fasting* Glucose Interpretive Criteria [...] of Diabetes Mellitus, Position Statement from the [place] [employer]. ??Diabetes Care, Volume 33, Supplement 1, Apr 2009 Blood Urea Nitrogen 38(H) 8 - 18 mg/dL [facility] Creatinine 1.83(H) 0.70 - 1.20 mg/dL [facility] Sodium 140 135 - 145 mmol/L [facility] Potassium 4.8 3.5 - 5.0 mmol/L [facility] Comment: Please note: ??Patients with WBC >100,000 may have falsely elevated Potassium levels. ??For accurate Potassium quantification in these patients send serum separator tube (gold top) for subsequent determinations. ??Contact the Clinical Chemistry Laboratory if there are any questions. Chloride 104 98 - 107 mmol/L [facility] Carbon Dioxide 24 22 - 31 mmol/L [facility] Anion Gap 12 5 - 15 mmol/L [facility] Calcium 9.1 8.5 - 10.5 mg/dL [facility] Est Glomerular Filtration Rate 29(L) >=60 mL/min/1. 73 m?? [facility] Comment: The eGFR was calculated using the CKD-EPI equation. As with all creatinine based estimates of kidney function, eGFR values calculated with the CKD-EPI equation are not accurate in patients with acute kidney failure, extremes of body mass or the acutely ill. [email or web address] [place] eGFR 34(L) >=60 mL/min/1. 73 m?? [facility] Comment: The eGFR was calculated using the CKD-EPI equation. As with all creatinine based estimates of kidney function, eGFR values calculated with the CKD-EPI equation are not accurate in patients with acute kidney failure, extremes of body mass or the acutely ill. [email or web address] Blood specimen (specimen) 03/01/2019 4:04 AM EST 03/01/2019 4:19 AM EST Narrative Resulting Agency Comment Spec In Lab Jaxon Fontaine MD CHEMISTRY ORDERABLES Performing Organization Address City/[facility] Co de Phone Number [facility] [place] [address] * POCT Glucose (03/01/2019 12:12 AM EST) Glucose, POC 132 65 - 199 mg/dL [facility] Comment: Supplemental ranges: <140 mg/dL before meals <180 mg/dL all other times of the day Blood specimen (specimen) 03/01/2019 12:12 AM EST 03/01/2019 12:12 AM EST Jaxon Fontaine MD POINT OF CARE TEST O RDERABLES Performing Organization Address [facility] Co de Phone Number [facility] [place] [address] * POCT Glucose (02/28/2019 8:01 PM EST) Glucose, POC 152 65 - 199 mg/dL [facility] Comment: Supplemental ranges: <140 mg/dL before meals <180 mg/dL all other times of the day Blood specimen (specimen) 02/28/2019 8:01 PM EST 02/28/2019 8:01 PM EST Jaxon Fontaine MD POINT OF CARE TEST O RDERABLES Performing Organization Address [facility] Co de Phone Number [facility] [place] [address] * Differential, Automated (02/28/2019 3:06 AM EST) Neutrophil % 51.2 % [facility] Neutrophil Absolute 3.90 1.70 - 6.10 x10(3)/[facility] Lymph % 37.0 % [facility] Lymphocytes Abs 2.8 0.9 - 3.2 x10(3)/[facility] Monocyte % 7.4 % [facility] Monocyte Abs 0.6 0.3 - 0.9 x10(3)/[facility] Eos % 3.3 % [facility] Eosinophils Abs 0.2 0.0 - 0.4 x10(3)/[facility] Basophil % 0.8 % [facility] Baso Absolute 0.1 0.0 - 0.1 x10(3)/[facility] LAB[facility] Immature Gran % 0.30 % [facility] Comment: Immature granulocytes(IG's)percentage and absolute count will include metamyelocytes, myelocytes, and promyelocytes. Blood smears from CBCs yielding IG's will be scanned manually for concordance. If this scan disagrees with the automated IG or if promyelocytes are noted, a manual differential will be performed. Immature Gran Absolute 0.02 0.00 - 0.04 x10(3)/[facility] Blood specimen (specimen) 02/28/2019 3:06 AM EST 02/28/2019 3:25 AM EST Narrative Resulting Agency Comment Spec In Lab Emeli Wall MD HEMATOLOGY ORDERAB LES Performing Organization Address City/State/[facility] Co de Phone Number [facility] [place] [address] * (ABNORMAL) Hemogram (02/28/2019 3:06 AM EST) White Blood Cell 7.6 4.0 - 9.5 x10(3)/mc L [facility] Red Blood Cell 3.46(L) 4.00 - 5.21 x10(6)/mc L [facility] Hemoglobin 10.0(L) 11.7 - 15.5 gm/dL [facility] Hematocrit 32.5(L) 35.7 - 45.8 % [facility] Mean Cell Volume 93.9 82.6 - 94.4 fL [facility] Mean Cell Hemoglobin 28.9 27.1 - 32.0 pg [facility] Mean Cell Hemoglobin Concentration 30.8(L) 31.7 - 35.0 gm/dL [facility] Platelet 281 145 - 357 x10(3)/mc L [facility] RDW Standard Deviation 46.4(H) 37.0 - 46.0 fL [facility] RDW coefficient of variation 13.5 11.5 - 14.1 % [facility] Mean Platelet Volume 10.6 7.6 - 12.9 [facility] NRBC% auto 0.0 % [facility] NRBC Absolute 0.000 0.000 - 0.000 x10(3)/mc L [facility] Blood specimen (specimen) 02/28/2019 3:06 AM EST 02/28/2019 3:25 AM EST Narrative Resulting Agency Comment Spec In Lab Emeli Wall MD HEMATOLOGY ORDERAB LES Performing Organization Address City/State/[facility] Co de Phone Number [facility] [place] [address] * (ABNORMAL) BMP w/fasting Glucose (02/28/2019 3:06 AM EST) Glucose Fasting 245(H) 65 - 99 mg/dL [facility] Comment: ?Fasting* Glucose Interpretive Criteria [...] of Diabetes Mellitus, Position Statement from the [place] [employer]. ??Diabetes Care, Volume 33, Supplement 1, Apr 2009 Blood Urea Nitrogen 42(H) 8 - 18 mg/dL [facility] Creatinine 2.20(H) 0.70 - 1.20 mg/dL [facility] Sodium 135 135 - 145 mmol/L [facility] Potassium 4.6 3.5 - 5.0 mmol/L [facility] Comment: Please note: ??Patients with WBC >100,000 may have falsely elevated Potassium levels. ??For accurate Potassium quantification in these patients send serum separator tube (gold top) for subsequent determinations. ??Contact the Clinical Chemistry Laboratory if there are any questions. Chloride 100 98 - 107 mmol/L [facility] Carbon Dioxide 23 22 - 31 mmol/L [facility] Anion Gap 12 5 - 15 mmol/L [facility] Calcium 8.9 8.5 - 10.5 mg/dL [facility] Est Glomerular Filtration Rate 24(L) >=60 mL/min/1. 73 m?? [facility] Comment: The eGFR was calculated using the CKD-EPI equation. As with all creatinine based estimates of kidney function, eGFR values calculated with the CKD-EPI equation are not accurate in patients with acute kidney failure, extremes of body mass or the acutely ill. [email or web address] eGFR 27(L) >=60 mL/min/1. 73 m?? [facility] Comment: The eGFR was calculated using the CKD-EPI equation. As with all creatinine based estimates of kidney function, eGFR values calculated with the CKD-EPI equation are not accurate in patients with acute kidney failure, extremes of body mass or the acutely ill. [email or web address] Blood specimen (specimen) 02/28/2019 3:06 AM EST 02/28/2019 3:25 AM EST Narrative Resulting Agency Comment Spec In Lab Jaxon Fontaine MD CHEMISTRY ORDERABLES [facility] [place] [address] * Differential, Automated (02/27/2019 4:27 AM EST) Neutrophil % 45.3 % [facility] Neutrophil Absolute 3.00 1.70 - 6.10 x10(3)/[facility] LABORATORY Lymph % 42.1 % [facility] Lymphocytes Abs 2.8 0.9 - 3.2 x10(3)/[facility] LABOR[facility]ORY Monocyte % 7.0 % [facility] Monocyte Abs 0.5 0.3 - 0.9 x10(3)/[facility] LABOR[facility] Eos % 4.2 % [facility] Eosinophils Abs 0.3 0.0 - 0.4 x10(3)/[facility] LABOR[facility] Basophil % 1.1 % [facility] Baso Absolute 0.1 0.0 - 0.1 x10(3)/[facility] LABORATORY Immature Gran % 0.30 % [facility] Comment: Immature granulocytes(IG's)percentage and absolute count will include metamyelocytes, myelocytes, and promyelocytes. Blood smears from CBCs yielding IG's will be scanned manually for concordance. If this scan disagrees with the automated IG or if promyelocytes are noted, a manual differential will be performed. Immature Gran Absolute 0.02 0.00 - 0.04 x10(3)/[facility] LAB[facility] Blood specimen (specimen) 02/27/2019 4:27 AM EST 02/27/2019 4:57 AM EST Narrative Resulting Agency Comment Spec In Lab Emeli Wall MD HEMATOLOGY ORDERAB LES Performing Organization Address City/State/[facility] Co de Phone Number [facility] [place] [address] * (ABNORMAL) Hemogram (02/27/2019 4:27 AM EST) White Blood Cell 6.6 4.0 - 9.5 x10(3)/ L [facility] Red Blood Cell 3.52(L) 4.00 - 5.21 x10(6)/ L [facility] Hemoglobin 10.3(L) 11.7 - 15.5 gm/dL [facility] Hematocrit 32.4(L) 35.7 - 45.8 % [facility] Mean Cell Volume 92.0 82.6 - 94.4 fL [facility] Mean Cell Hemoglobin 29.3 27.1 - 32.0 pg [facility] Mean Cell Hemoglobin Concentration 31.8 31.7 - 35.0 gm/dL [facility] Platelet 269 145 - 357 x10(3)/mc L [facility] RDW Standard Deviation 45.5 37.0 - 46.0 [facility] RDW coefficient of variation 13.4 11.5 - 14.1 % [facility] [place] Platelet Volume 10.2 7.6 - 12.9 [facility]ORY NRBC% auto 0.0 % [facility] NRBC Absolute 0.000 0.000 - 0.000 x10(3)/mc L [facility] Blood specimen (specimen) 02/27/2019 4:27 AM EST 02/27/2019 4:57 AM EST Narrative Resulting Agency Comment Spec In Lab Emeli Wall MD HEMATOLOGY ORDERAB LES Performing Organization Address City/State/[facility] Co de Phone Number [facility] [place] [address] * (ABNORMAL) BMP w/fasting Glucose (02/27/2019 4:27 AM EST) Glucose Fasting 191(H) 65 - 99 mg/dL [facility] Comment: ?Fasting* Glucose Interpretive Criteria [...] of Diabetes Mellitus, Position Statement from the [place] [employer]. ??Diabetes Care, Volume 33, Supplement 1, Apr 2009 Blood Urea Nitrogen 34(H) 8 - 18 mg/dL [facility] Creatinine 1.94(H) 0.70 - 1.20 mg/dL [facility] Sodium 138 135 - 145 mmol/L [facility] Potassium 5.2(H) 3.5 - 5.0 mmol/L [facility] Comment: Please note: ??Patients with WBC >100,000 may have falsely elevated Potassium levels. ??For accurate Potassium quantification in these patients send serum separator tube (gold top) for subsequent determinations. ??Contact the Clinical Chemistry Laboratory if there are any questions. Chloride 102 98 - 107 mmol/L [facility] Carbon Dioxide 25 22 - 31 mmol/L [facility] Anion Gap 11 5 - 15 mmol/L [facility] Calcium 9.0 8.5 - 10.5 mg/dL [facility] Est Glomerular Filtration Rate 27(L) >=60 mL/min/1. 73 m?? [facility] Comment: The eGFR was calculated using the CKD-EPI equation. As with all creatinine based estimates of kidney function, eGFR values calculated with the CKD-EPI equation are not accurate in patients with acute kidney failure, extremes of body mass or the acutely ill. [email or web address] CITYnk[place] eGFR 32(L) >=60 mL/min/1. 73 m?? [facility] Comment: The eGFR was calculated using the CKD-EPI equation. As with all creatinine based estimates of kidney function, eGFR values calculated with the CKD-EPI equation are not accurate in patients with acute kidney failure, extremes of body mass or the acutely ill. [email or web address] Blood specimen (specimen) 02/27/2019 4:27 AM EST 02/27/2019 4:57 AM EST Narrative Resulting Agency Comment Spec In Lab Jaxon Fontaine MD CHEMISTRY ORDERABLES Performing Organization Address City/[facility]/ZIP Co de Phone Number [facility] [place] [address] * Differential, Automated (02/26/2019 4:43 AM EST) Pathologist [facility] Neutrophil % 47.9 % [facility] Neutrophil Absolute 3.27 1.70 - 6.10 x10(3)/[facility] LABORATORY Lymph % 40.3 % [facility] Lymphocytes Abs 2.8 0.9 - 3.2 x10(3)/[facility] LABORATORY Monocyte % 6.2 % [facility] Monocyte Abs 0.4 0.3 - 0.9 x10(3)/[facility] LABORATORY Eos % 4.3 % [facility] Eosinophils Abs 0.3 0.0 - 0.4 x10(3)/[facility] LABORATORY Basophil % 1.0 % [facility] Baso Absolute 0.1 0.0 - 0.1 x10(3)/[facility] LABORATORY Immature Gran % 0.30 % [facility] Comment: Immature granulocytes(IG's)percentage and absolute count will include metamyelocytes, myelocytes, and promyelocytes. Blood smears from CBCs yielding IG's will be scanned manually for concordance. If this scan disagrees with the automated IG or if promyelocytes are noted, a manual differential will be performed. Immature Gran Absolute 0.02 0.00 - 0.04 x10(3)/[facility] LABORATORY Blood specimen (specimen) 02/26/2019 4:43 AM EST 02/26/2019 5:06 AM EST Narrative Resulting Agency Comment Spec In Lab Emeli Wall MD HEMATOLOGY ORDERAB LES Performing Organization Address City/[facility]/ZIP Co de Phone Number [facility] [place] [address] * (ABNORMAL) Hemogram (02/26/2019 4:43 AM EST) [facility] White Blood Cell 6.8 4.0 - 9.5 x10(3)/[facility] LABORATORY Red Blood Cell 3.68(L) 4.00 - 5.21 x10(6)/[facility] LABORATORY Hemoglobin 10.9(L) 11.7 - 15.5 gm/dL [facility] Hematocrit 34.1(L) 35.7 - 45.8 % [facility] Mean Cell Volume 92.7 82.6 - 94.4 fL [facility] Mean Cell Hemoglobin 29.6 27.1 - 32.0 pg [facility] Mean Cell Hemoglobin Concentration 32.0 31.7 - 35.0 gm/dL [facility] Platelet 311 145 - 357 x10(3)/[facility] LABORATORY RDW Standard Deviation 44.8 37.0 - 46.0 [facility]ORY RDW coefficient of variation 13.2 11.5 - 14.1 % [facility] Mean Platelet Volume 10.1 7.6 - 12.9 [facility] LAB[facility]ATORY NRBC% auto 0.0 % [facility] NRBC Absolute 0.000 0.000 - 0.000 x10(3)/[facility] LABORATORY Blood specimen (specimen) 02/26/2019 4:43 AM EST 02/26/2019 5:06 AM EST Narrative Resulting Agency Comment Spec In Lab Emeli Wall MD HEMATOLOGY ORDERAB LES [facility] [place] [address] * (ABNORMAL) BMP w/fasting Glucose (02/26/2019 4:43 AM EST) Pathologist [facility] Glucose Fasting 74 65 - 99 mg/dL [facility] Comment: ?Fasting* Glucose Interpretive Criteria [...] of Diabetes Mellitus, Position Statement from the [place] [employer]. ??Diabetes Care, Volume 33, Supplement 1, Apr 2009 Blood Urea Nitrogen 22(H) 8 - 18 mg/dL [facility] Creatinine 1.44(H) 0.70 - 1.20 mg/dL [facility] Sodium 139 135 - 145 mmol/L [facility] Potassium 4.6 3.5 - 5.0 mmol/L [facility] Comment: Please note: ??Patients with WBC >100,000 may have falsely elevated Potassium levels. ??For accurate Potassium quantification in these patients send serum separator tube (gold top) for subsequent determinations. ??Contact the Clinical Chemistry Laboratory if there are any questions. Chloride 103 98 - 107 mmol/L [facility] Carbon Dioxide 22 22 - 31 mmol/L [facility] Anion Gap 14 5 - 15 mmol/L [facility] Calcium 9.0 8.5 - 10.5 mg/dL [facility] Est Glomerular Filtration Rate 39(L) >=60 mL/min/1. 73 m?? [facility] Comment: The eGFR was calculated using the CKD-EPI equation. As with all creatinine based estimates of kidney function, eGFR values calculated with the CKD-EPI equation are not accurate in patients with acute kidney failure, extremes of body mass or the acutely ill. [email or web address] eGFR 46(L) >=60 mL/min/1. 73 m?? [facility] Comment: The eGFR was calculated using the CKD-EPI equation. As with all creatinine based estimates of kidney function, eGFR values calculated with the CKD-EPI equation are not accurate in patients with acute kidney failure, extremes of body mass or the acutely ill. [email or web address] Blood specimen (specimen) 02/26/2019 4:43 AM EST 02/26/2019 5:06 AM EST Narrative Resulting Agency Comment Spec In Lab Jaxon Fontaine MD CHEMISTRY ORDERABLES [facility] [place] [address] * Differential, Automated (02/25/2019 3:34 AM EST) Neutrophil % 46.3 % [facility] Neutrophil Absolute 3.02 1.70 - 6.10 x10(3)/[facility] LABORATORY Lymph % 39.2 % [facility] Lymphocytes Abs 2.6 0.9 - 3.2 x10(3)/[facility] LABORATORY Monocyte % 7.1 % [facility] Monocyte Abs 0.5 0.3 - 0.9 x10(3)/[facility] LABORATORY Eos % 6.1 % [facility] Eosinophils Abs 0.4 0.0 - 0.4 x10(3)/[facility] LABORATORY Basophil % 1.1 % [facility] Baso Absolute 0.1 0.0 - 0.1 x10(3)/[facility] LABORATORY Immature Gran % 0.20 % [facility] Comment: Immature granulocytes(IG's)percentage and absolute count will include metamyelocytes, myelocytes, and promyelocytes. Blood smears from CBCs yielding IG's will be scanned manually for concordance. If this scan disagrees with the automated IG or if promyelocytes are noted, a manual differential will be performed. Immature Gran Absolute 0.01 0.00 - 0.04 x10(3)/[facility] LABORATORY Blood specimen (specimen) 02/25/2019 3:34 AM EST 02/25/2019 3:59 AM EST Narrative Resulting Agency Comment Spec In Lab Servando Nolan MD HEMATOLOGY ORDERABLE S [facility] [place] [address] * (ABNORMAL) Hemogram (02/25/2019 3:34 AM EST) White Blood Cell 6.5 4.0 - 9.5 x10(3)/mc L [facility] Red Blood Cell 3.55(L) 4.00 - 5.21 x10(6)/mc L [facility] Hemoglobin 10.4(L) 11.7 - 15.5 gm/dL [facility] Hematocrit 33.3(L) 35.7 - 45.8 % [facility] Mean Cell Volume 93.8 82.6 - 94.4 fL [facility] Mean Cell Hemoglobin 29.3 27.1 - 32.0 pg [facility] Mean Cell Hemoglobin Concentration 31.2(L) 31.7 - 35.0 gm/dL [facility] Platelet 322 145 - 357 x10(3)/mc L [facility] RDW Standard Deviation 45.0 37.0 - 46.0 [facility] LABORATORY RDW coefficient of variation 13.1 11.5 - 14.1 % [facility] Mean Platelet Volume 10.4 7.6 - 12.9 [facility] LAB[facility]ORY NRBC% auto 0.0 % [facility] NRBC Absolute 0.000 0.000 - 0.000 x10(3)/mc L [facility] Blood specimen (specimen) 02/25/2019 3:34 AM EST 02/25/2019 3:59 AM EST Narrative Resulting Agency Comment Spec In Lab Servando Nolan MD HEMATOLOGY ORDERABLE S [facility] [place] [address] * (ABNORMAL) BMP w/fasting Glucose (02/25/2019 3:34 AM EST) [facility] Glucose Fasting 205(H) 65 - 99 mg/dL [facility] Comment: ?Fasting* Glucose Interpretive Criteria [...] of Diabetes Mellitus, Position Statement from the [place] [employer]. ??Diabetes Care, Volume 33, Supplement 1, Apr 2009 Blood Urea Nitrogen 25(H) 8 - 18 mg/dL [facility] Creatinine 1.63(H) 0.70 - 1.20 mg/dL [facility] Sodium 140 135 - 145 mmol/L [facility] LABORATORY Potassium 4.7 3.5 - 5.0 mmol/L [facility] Comment: Please note: ??Patients with WBC >100,000 may have falsely elevated Potassium levels. ??For accurate Potassium quantification in these patients send serum separator tube (gold top) for subsequent determinations. ??Contact the Clinical Chemistry Laboratory if there are any questions. Chloride 105 98 - 107 mmol/L [facility] Carbon Dioxide 24 22 - 31 mmol/L [facility] Anion Gap 11 5 - 15 mmol/L [facility] Calcium 9.1 8.5 - 10.5 mg/dL [facility] Est Glomerular Filtration Rate 34(L) >=60 mL/min/1. 73 m?? [facility] Comment: The eGFR was calculated using the CKD-EPI equation. As with all creatinine based estimates of kidney function, eGFR values calculated with the CKD-EPI equation are not accurate in patients with acute kidney failure, extremes of body mass or the acutely ill. [email or web address] eGFR 39(L) >=60 mL/min/1. 73 m?? [facility] Comment: The eGFR was calculated using the CKD-EPI equation. As with all creatinine based estimates of kidney function, eGFR values calculated with the CKD-EPI equation are not accurate in patients with acute kidney failure, extremes of body mass or the acutely ill. [email or web address] [place] [place] Blood specimen (specimen) 02/25/2019 3:34 AM EST 02/25/2019 3:59 AM EST Narrative Resulting Agency Comment Spec In Lab Jaxon Fontaine MD CHEMISTRY ORDERABLES [facility] [place] [id number] * Differential, Automated (02/24/2019 3:52 AM EST) Neutrophil % 40.8 % [facility] Neutrophil Absolute 2.66 1.70 - 6.10 x10(3)/[facility] LABORATORY Lymph % 44.1 % [facility] Lymphocytes Abs 2.9 0.9 - 3.2 x10(3)/[facility] LABORATORY Monocyte % 7.4 % [facility] Monocyte Abs 0.5 0.3 - 0.9 x10(3)/[facility] LABORATORY Eos % 6.6 % [facility] Eosinophils Abs 0.4 0.0 - 0.4 x10(3)/[facility] LABORATORY Basophil % 0.9 % [facility] Baso Absolute 0.1 0.0 - 0.1 x10(3)/[facility] LABORATORY Immature Gran % 0.20 % [facility] Comment: Immature granulocytes(IG's)percentage and absolute count will include metamyelocytes, myelocytes, and promyelocytes. Blood smears from CBCs yielding IG's will be scanned manually for concordance. If this scan disagrees with the automated IG or if promyelocytes are noted, a manual differential will be performed. Immature Gran Absolute 0.01 0.00 - 0.04 x10(3)/[facility] LABORATORY Blood specimen (specimen) 02/24/2019 3:52 AM EST 02/24/2019 4:25 AM EST Narrative Resulting Agency Comment Spec In Lab Servando Nolan MD HEMATOLOGY ORDERABLE S [facility] [place] [address] * (ABNORMAL) Hemogram (02/24/2019 3:52 AM EST) White Blood Cell 6.5 4.0 - 9.5 x10(3)/[facility] LABORATORY Red Blood Cell 3.58(L) 4.00 - 5.21 x10(6)/[facility] LABORATORY Hemoglobin 10.6(L) 11.7 - 15.5 gm/dL [facility] Hematocrit 33.9(L) 35.7 - 45.8 % [facility] Mean Cell Volume 94.7(H) 82.6 - 94.4 [facility] LABORATORY Mean Cell Hemoglobin 29.6 27.1 - 32.0 pg [facility] Mean Cell Hemoglobin Concentration 31.3(L) 31.7 - 35.0 gm/dL [facility] Platelet 316 145 - 357 x10(3)/[facility] LABORATORY RDW Standard Deviation 45.4 37.0 - 46.0 [facility] LABORATORY RDW coefficient of variation 13.2 11.5 - 14.1 % [facility] Mean Platelet Volume 10.3 7.6 - 12.9 [facility] LAB[facility]ORY NRBC% auto 0.0 % [facility] NRBC Absolute 0.000 0.000 - 0.000 x10(3)/[facility] LABORATORY Blood specimen (specimen) 02/24/2019 3:52 AM EST 02/24/2019 4:25 AM EST Narrative Resulting Agency Comment Spec In Lab Servando Nolan MD HEMATOLOGY ORDERABLE S [facility] [place] [address] * (ABNORMAL) BMP w/fasting Glucose (02/24/2019 3:52 AM EST) Glucose Fasting 133(H) 65 - 99 mg/dL [facility] Comment: ?Fasting* Glucose Interpretive Criteria [...] of Diabetes Mellitus, Position Statement from the [place] [employer]. ??Diabetes Care, Volume 33, Supplement 1, Apr 2009 Blood Urea Nitrogen 21(H) 8 - 18 mg/dL [facility] Creatinine 1.69(H) 0.70 - 1.20 mg/dL [facility] Sodium 141 135 - 145 mmol/L [facility] Potassium 4.7 3.5 - 5.0 mmol/L [facility] Comment: Please note: ??Patients with WBC >100,000 may have falsely elevated Potassium levels. ??For accurate Potassium quantification in these patients send serum separator tube (gold top) for subsequent determinations. ??Contact the Clinical Chemistry Laboratory if there are any questions. Chloride 107 98 - 107 mmol/L [facility] Carbon Dioxide 23 22 - 31 mmol/L [facility] Anion Gap 11 5 - 15 mmol/L [facility] Calcium 8.9 8.5 - 10.5 mg/dL [facility] Est Glomerular Filtration Rate 32(L) >=60 mL/min/1. 73 m?? [facility] Comment: The eGFR was calculated using the CKD-EPI equation. As with all creatinine based estimates of kidney function, eGFR values calculated with the CKD-EPI equation are not accurate in patients with acute kidney failure, extremes of body mass or the acutely ill. [email or web address] [place] eGFR 38(L) >=60 mL/min/1. 73 m?? [facility] Comment: The eGFR was calculated using the CKD-EPI equation. As with all creatinine based estimates of kidney function, eGFR values calculated with the CKD-EPI equation are not accurate in patients with acute kidney failure, extremes of body mass or the acutely ill. [email or web address] [place] Blood specimen (specimen) 02/24/2019 3:52 AM EST 02/24/2019 4:25 AM EST Narrative Resulting Agency Comment Spec In Lab Jaxon Fontaine MD CHEMISTRY ORDERABLES Performing Organization Address City/[facility]/ZIP Co de Phone Number [facility] [place] [address] * (ABNORMAL) POCT Glucose (02/23/2019 3:43 PM EST) Glucose, POC 216(H) 65 - 199 mg/dL [facility] Comment: Supplemental ranges: <140 mg/dL before meals <180 mg/dL all other times of the day Blood specimen (specimen) 02/23/2019 3:43 PM EST 02/23/2019 3:43 PM EST Jaxon Fontaine MD POINT OF CARE TEST O RDERABLES Performing Organization Address City/[facility]/ZIP Co de Phone Number [facility] [place] [address] * Differential, Automated (02/23/2019 3:22 AM EST) Neutrophil % 47.1 % [facility] Neutrophil Absolute 2.82 1.70 - 6.10 x10(3)/[facility] LABORATORY Lymph % 37.5 % [facility] Lymphocytes Abs 2.2 0.9 - 3.2 x10(3)/[facility] LABORATORY Monocyte % 6.7 % [facility] Monocyte Abs 0.4 0.3 - 0.9 x10(3)/[facility] LABORATORY Eos % 7.0 % [facility] Eosinophils Abs 0.4 0.0 - 0.4 x10(3)/[facility] LABORATORY Basophil % 1.5 % [facility] Baso Absolute 0.1 0.0 - 0.1 x10(3)/[facility] LABORATORY Immature Gran % 0.20 % [facility] Comment: Immature granulocytes(IG's)percentage and absolute count will include metamyelocytes, myelocytes, and promyelocytes. Blood smears from CBCs yielding IG's will be scanned manually for concordance. If this scan disagrees with the automated IG or if promyelocytes are noted, a manual differential will be performed. Immature Gran Absolute 0.01 0.00 - 0.04 x10(3)/[facility] [place] Blood specimen (specimen) 02/23/2019 3:22 AM EST 02/23/2019 3:48 AM EST Narrative Resulting Agency Comment Spec In Lab Servando Nolan MD HEMATOLOGY ORDERABLE S [facility] [place] [address] * (ABNORMAL) Hemogram (02/23/2019 3:22 AM EST) [facility] White Blood Cell 6.0 4.0 - 9.5 x10(3)/mc L [facility] Red Blood Cell 3.74(L) 4.00 - 5.21 x10(6)/ L [facility] Hemoglobin 10.8(L) 11.7 - 15.5 gm/dL [facility] Hematocrit 35.4(L) 35.7 - 45.8 % [facility] Mean Cell Volume 94.7(H) 82.6 - 94.4 fL [facility] [place] Mean Cell Hemoglobin 28.9 27.1 - 32.0 pg [facility] Mean Cell Hemoglobin Concentration 30.5(L) 31.7 - 35.0 gm/dL [facility] Platelet 353 145 - 357 x10(3)/mc L [facility] RDW Standard Deviation 46.1(H) 37.0 - 46.0 fL [facility] RDW coefficient of variation 13.4 11.5 - 14.1 % [facility] [place] Mean Platelet Volume 10.0 7.6 - 12.9 fL [facility] NRBC% auto 0.0 % [facility] NRBC Absolute 0.000 0.000 - 0.000 x10(3)/mc L [facility] Blood specimen (specimen) 02/23/2019 3:22 AM EST 02/23/2019 3:48 AM EST Narrative Resulting Agency Comment Spec In Lab Servando Nolan MD HEMATOLOGY ORDERABLE S [facility] [place] [address] * (ABNORMAL) BMP w/fasting Glucose (02/23/2019 3:22 AM EST) Glucose Fasting 95 65 - 99 mg/dL [facility] Comment: ?Fasting* Glucose Interpretive Criteria [...] of Diabetes Mellitus, Position Statement from the [place] [employer]. ??Diabetes Care, Volume 33, Supplement 1, Apr 2009 Blood Urea Nitrogen 18 8 - 18 mg/dL [facility] Creatinine 1.36(H) 0.70 - 1.20 mg/dL [facility] Sodium 141 135 - 145 mmol/L [facility] Potassium 4.7 3.5 - 5.0 mmol/L [facility] Comment: Please note: ??Patients with WBC >100,000 may have falsely elevated Potassium levels. ??For accurate Potassium quantification in these patients send serum separator tube (gold top) for subsequent determinations. ??Contact the Clinical Chemistry Laboratory if there are any questions. Chloride 106 98 - 107 mmol/L [facility] Carbon Dioxide 23 22 - 31 mmol/L [facility] Anion Gap 12 5 - 15 mmol/L [facility] Calcium 9.1 8.5 - 10.5 mg/dL [facility] Est Glomerular Filtration Rate 42(L) >=60 mL/min/1. 73 m?? [facility] Comment: The eGFR was calculated using the CKD-EPI equation. As with all creatinine based estimates of kidney function, eGFR values calculated with the CKD-EPI equation are not accurate in patients with acute kidney failure, extremes of body mass or the acutely ill. [email or web address] [place] eGFR 49(L) >=60 mL/min/1. 73 m?? [facility] Comment: The eGFR was calculated using the CKD-EPI equation. As with all creatinine based estimates of kidney function, eGFR values calculated with the CKD-EPI equation are not accurate in patients with acute kidney failure, extremes of body mass or the acutely ill. [email or web address] [place] Blood specimen (specimen) 02/23/2019 3:22 AM EST 02/23/2019 3:48 AM EST Narrative Resulting Agency Comment Spec In Lab Jaxon Fontaine MD CHEMISTRY ORDERABLES Performing Organization Address City/[facility]/ZIP Co de Phone Number [facility] [place] [address] * POCT Glucose (02/22/2019 8:57 AM EST) Pathologist [facility] Glucose, POC 67 65 - 199 mg/dL [facility] Comment: Supplemental ranges: <140 mg/dL before meals <180 mg/dL all other times of the day Blood specimen (specimen) 02/22/2019 8:57 AM EST 02/22/2019 8:57 AM EST Jaxon Fontaine MD POINT OF CARE TEST O RDERABLES Performing Organization Address [facility] Co de Phone Number [facility] [place] [address] * Differential, Automated (02/22/2019 3:41 AM EST) [facility] Neutrophil % 50.4 % [facility] Neutrophil Absolute 3.04 1.70 - 6.10 x10(3)/[facility] LABOR[facility] Lymph % 33.4 % [facility] Lymphocytes Abs 2.0 0.9 - 3.2 x10(3)/[facility] LABOR[facility]ORY Monocyte % 7.5 % [facility] Monocyte Abs 0.4 0.3 - 0.9 x10(3)/[facility] LABOR[facility]ORY Eos % 7.3 % [facility] Eosinophils Abs 0.4 0.0 - 0.4 x10(3)/[facility] LAB[facility] Basophil % 1.2 % [facility] Baso Absolute 0.1 0.0 - 0.1 x10(3)/[facility] LABORATORY Immature Gran % 0.20 % [facility] Comment: Immature granulocytes(IG's)percentage and absolute count will include metamyelocytes, myelocytes, and promyelocytes. Blood smears from CBCs yielding IG's will be scanned manually for concordance. If this scan disagrees with the automated IG or if promyelocytes are noted, a manual differential will be performed. Immature Gran Absolute 0.01 0.00 - 0.04 x10(3)/mcL [facility] Blood specimen (specimen) 02/22/2019 3:41 AM EST 02/22/2019 4:17 AM EST Narrative Resulting Agency Comment Spec In Lab Zenobia Quijano MD HEMATOLOGY ORDERABLE S [facility] [place] [address] * (ABNORMAL) Hemogram (02/22/2019 3:41 AM EST) White Blood Cell 6.0 4.0 - 9.5 x10(3)/mc L [facility] Red Blood Cell 3.58(L) 4.00 - 5.21 x10(6)/mc L [facility] Hemoglobin 10.2(L) 11.7 - 15.5 gm/dL [facility] Hematocrit 33.5(L) 35.7 - 45.8 % [facility] Mean Cell Volume 93.6 82.6 - 94.4 fL [facility] Mean Cell Hemoglobin 28.5 27.1 - 32.0 pg [facility] Mean Cell Hemoglobin Concentration 30.4(L) 31.7 - 35.0 gm/dL [facility] Platelet 351 145 - 357 x10(3)/mc L [facility] RDW Standard Deviation 45.7 37.0 - 46.0 [facility]AT[facility] RDW coefficient of variation 13.2 11.5 - 14.1 % [facility] Mean Platelet Volume 10.1 7.6 - 12.9 fL [facility] NRBC% auto 0.0 % [facility] NRBC Absolute 0.000 0.000 - 0.000 x10(3)/mc L [facility] Blood specimen (specimen) 02/22/2019 3:41 AM EST 02/22/2019 4:17 AM EST Narrative Resulting Agency Comment Spec In Lab Zenobia Quijano MD HEMATOLOGY ORDERABLE S [facility] [place] [address] * (ABNORMAL) BMP w/fasting Glucose (02/22/2019 3:41 AM EST) Glucose Fasting 125(H) 65 - 99 mg/dL [facility] Comment: ?Fasting* Glucose Interpretive Criteria [...] of Diabetes Mellitus, Position Statement from the [place] [employer]. ??Diabetes Care, Volume 33, Supplement 1, Apr 2009 Blood Urea Nitrogen 21(H) 8 - 18 mg/dL [facility] Creatinine 1.48(H) 0.70 - 1.20 mg/dL [facility] Sodium 141 135 - 145 mmol/L [facility] Potassium 4.9 3.5 - 5.0 mmol/L [facility] Comment: Please note: ??Patients with WBC >100,000 may have falsely elevated Potassium levels. ??For accurate Potassium quantification in these patients send serum separator tube (gold top) for subsequent determinations. ??Contact the Clinical Chemistry Laboratory if there are any questions. Chloride 106 98 - 107 mmol/L [facility] Carbon Dioxide 23 22 - 31 mmol/L [facility] Anion Gap 12 5 - 15 mmol/L [facility] Calcium 8.7 8.5 - 10.5 mg/dL [facility] Est Glomerular Filtration Rate 38(L) >=60 mL/min/1. 73 m?? [facility] Comment: The eGFR was calculated using the CKD-EPI equation. As with all creatinine based estimates of kidney function, eGFR values calculated with the CKD-EPI equation are not accurate in patients with acute kidney failure, extremes of body mass or the acutely ill. [email or web address] [place] eGFR 44(L) >=60 mL/min/1. 73 m?? [facility] Comment: The eGFR was calculated using the CKD-EPI equation. As with all creatinine based estimates of kidney function, eGFR values calculated with the CKD-EPI equation are not accurate in patients with acute kidney failure, extremes of body mass or the acutely ill. [email or web address] [place] Blood specimen (specimen) 02/22/2019 3:41 AM EST 02/22/2019 4:17 AM EST Narrative Resulting Agency Comment Spec In Lab Jaxon Fontaine MD CHEMISTRY ORDERABLES Performing Organization Address City/[facility]/ZIP Co de Phone Number [facility] [place] [address] * Urinalysis Microscopic Exam (02/21/2019 5:25 PM EST) RBC, Urine 3 0 - 4 /HPF [facility] WBC, Urine 5 0 - 5 /HPF [facility] Urine specimen obtained via indwelling urinary catheter (specimen) 02/21/2019 5:25 PM EST 02/21/2019 5:52 PM EST Narrative Resulting Agency Comment Spec In Lab Servando Nolan MD URINE ORDERABLES Performing Organization Address City/[facility]/ZIP Co de Phone Number [facility] [place] [address] * (ABNORMAL) Urinalysis with reflex Culture (02/21/2019 5:25 PM EST) Glucose, Urine Dipstick Negative Negative mg/dL [facility] Protein, Urine Dipstick Negative Negative mg/dL [facility] Bilirubin, Urine Dipstick Negative Negative mg/dL [facility] Comment: Clinical correlation required for positive Urine Bilirubin results as false positive may occur with some drugs and drug related products. If a false positive is suspected a serum total bilirubin should be considered if clinically indicated. Urobilinogen, Urine Dipstick Normal Normal mg/dL [facility] pH, Urn (dipstick) 6.5 5.0 - 8.0 [facility] Blood, Urine Dipstick Negative Negative mg/dL [facility] Ketone, Urine Dipstick Negative Negative mg/dL [facility] Nitrite, Urine Dipstick Negative Negative [facility] Leukocytes, Urine Dipstick Trace(A) Negative [facility] Appearance, Urine Dipstick Clear Clear [facility] Specific [place] Urine Automated 1.015 1.002 - 1.030 [facility] Color, Urine Dipstick Yellow Yellow [facility] Reflex to Culture No [facility] Urine specimen obtained via indwelling urinary catheter (specimen) 02/21/2019 5:25 PM EST 02/21/2019 5:52 PM EST Narrative Resulting Agency Comment Spec In Lab Jaxon Fontaine MD URINE ORDERABLES [facility] [place] [address] * Differential, Automated (02/21/2019 3:27 AM EST) Neutrophil % 56.1 % [facility] Neutrophil Absolute 3.96 1.70 - 6.10 x10(3)/[facility] LAB[facility] Lymph % 28.8 % [facility] Lymphocytes Abs 2.0 0.9 - 3.2 x10(3)/[facility] Monocyte % 7.6 % [facility] Monocyte Abs 0.5 0.3 - 0.9 x10(3)/[facility] Eos % 6.2 % [facility] Eosinophils Abs 0.4 0.0 - 0.4 x10(3)/[facility] Basophil % 1.0 % [facility] Baso Absolute 0.1 0.0 - 0.1 x10(3)/[facility] Immature Gran % 0.30 % [facility] Comment: Immature granulocytes(IG's)percentage and absolute count will include metamyelocytes, myelocytes, and promyelocytes. Blood smears from CBCs yielding IG's will be scanned manually for concordance. If this scan disagrees with the automated IG or if promyelocytes are noted, a manual differential will be performed. Immature Gran Absolute 0.02 0.00 - 0.04 x10(3)/[facility] Blood specimen (specimen) 02/21/2019 3:27 AM EST 02/21/2019 3:36 AM EST Narrative Resulting Agency Comment Spec In Lab Zenobia Quijano MD HEMATOLOGY ORDERABLE S [facility] [place] [address] * (ABNORMAL) Hemogram (02/21/2019 3:27 AM EST) White Blood Cell 7.1 4.0 - 9.5 x10(3)/mc L [facility] Red Blood Cell 3.38(L) 4.00 - 5.21 x10(6)/mc L [facility] Hemoglobin 9.9(L) 11.7 - 15.5 gm/dL [facility] Hematocrit 31.9(L) 35.7 - 45.8 % [facility] Mean Cell Volume 94.4 82.6 - 94.4 fL [facility] Mean Cell Hemoglobin 29.3 27.1 - 32.0 pg [facility] Mean Cell Hemoglobin Concentration 31.0(L) 31.7 - 35.0 gm/dL [facility] Platelet 331 145 - 357 x10(3)/mc L [facility] RDW Standard Deviation 46.7(H) 37.0 - 46.0 fL [facility] RDW coefficient of variation 13.4 11.5 - 14.1 % [facility] Mean Platelet Volume 9.8 7.6 - 12.9 fL [facility] NRBC% auto 0.0 % [facility] NRBC Absolute 0.000 0.000 - 0.000 x10(3)/mc L [facility] Blood specimen (specimen) 02/21/2019 3:27 AM EST 02/21/2019 3:36 AM EST Narrative Resulting Agency Comment Spec In Lab Zenobia Quijano MD HEMATOLOGY ORDERABLE S [facility] [place] [address] * (ABNORMAL) BMP w/fasting Glucose (02/21/2019 3:27 AM EST) Glucose Fasting 76 65 - 99 mg/dL [facility] Comment: ?Fasting* Glucose Interpretive Criteria [...] of Diabetes Mellitus, Position Statement from the [place] [employer]. ??Diabetes Care, Volume 33, Supplement 1, Apr 2009 Blood Urea Nitrogen 27(H) 8 - 18 mg/dL [facility] Creatinine 1.60(H) 0.70 - 1.20 mg/dL [facility] Sodium 141 135 - 145 mmol/L [facility] Potassium 4.8 3.5 - 5.0 mmol/L [facility] Comment: Please note: ??Patients with WBC >100,000 may have falsely elevated Potassium levels. ??For accurate Potassium quantification in these patients send serum separator tube (gold top) for subsequent determinations. ??Contact the Clinical Chemistry Laboratory if there are any questions. Chloride 107 98 - 107 mmol/L [facility] Carbon Dioxide 23 22 - 31 mmol/L [facility] Anion Gap 11 5 - 15 mmol/L [facility] Calcium 8.7 8.5 - 10.5 mg/dL [facility] Est Glomerular Filtration Rate 35(L) >=60 mL/min/1. 73 m?? [facility] Comment: The eGFR was calculated using the CKD-EPI equation. As with all creatinine based estimates of kidney function, eGFR values calculated with the CKD-EPI equation are not accurate in patients with acute kidney failure, extremes of body mass or the acutely ill. [email or web address] [place] eGFR 40(L) >=60 mL/min/1. 73 m?? [facility] Comment: The eGFR was calculated using the CKD-EPI equation. As with all creatinine based estimates of kidney function, eGFR values calculated with the CKD-EPI equation are not accurate in patients with acute kidney failure, extremes of body mass or the acutely ill. [email or web address] Blood specimen (specimen) 02/21/2019 3:27 AM EST 02/21/2019 3:36 AM EST Narrative Resulting Agency Comment Spec In Lab Jaxon Fontaine MD CHEMISTRY ORDERABLES [facility] [place] [address] * Differential, Automated (02/20/2019 5:45 PM EST) Pathologist [facility] Neutrophil % 61.4 % [facility] Neutrophil Absolute 4.30 1.70 - 6.10 x10(3)/[facility] Lymph % 25.4 % [facility] Lymphocytes Abs 1.8 0.9 - 3.2 x10(3)/[facility] Monocyte % 6.7 % [facility] Monocyte Abs 0.5 0.3 - 0.9 x10(3)/[facility] Eos % 5.3 % [facility] Eosinophils Abs 0.4 0.0 - 0.4 x10(3)/[facility] Basophil % 0.9 % [facility] Baso Absolute 0.1 0.0 - 0.1 x10(3)/[facility] Immature Gran % 0.30 % [facility] Comment: Immature granulocytes(IG's)percentage and absolute count will include metamyelocytes, myelocytes, and promyelocytes. Blood smears from CBCs yielding IG's will be scanned manually for concordance. If this scan disagrees with the automated IG or if promyelocytes are noted, a manual differential will be performed. Immature Gran Absolute 0.02 0.00 - 0.04 x10(3)/[facility] Blood specimen (specimen) 02/20/2019 5:45 PM EST 02/20/2019 6:01 PM EST Narrative Resulting Agency Comment Spec In Lab Zenobia Quijano MD HEMATOLOGY ORDERABLE S [facility] [place] [address] * (ABNORMAL) Hemogram (02/20/2019 5:45 PM EST) White Blood Cell 7.0 4.0 - 9.5 x10(3)/ L [facility] Red Blood Cell 3.50(L) 4.00 - 5.21 x10(6)/mc L [facility] Hemoglobin 10.4(L) 11.7 - 15.5 gm/dL [facility] Hematocrit 33.0(L) 35.7 - 45.8 % [facility] Mean Cell Volume 94.3 82.6 - 94.4 fL [facility] Mean Cell Hemoglobin 29.7 27.1 - 32.0 pg [facility] Mean Cell Hemoglobin Concentration 31.5(L) 31.7 - 35.0 gm/dL [facility] Platelet 349 145 - 357 x10(3)/mc L [facility] RDW Standard Deviation 46.7(H) 37.0 - 46.0 [facility] RDW coefficient of variation 13.5 11.5 - 14.1 % [facility] [place] [place] Mean Platelet Volume 10.0 7.6 - 12.9 [facility] NRBC% auto 0.0 % [facility] NRBC Absolute 0.000 0.000 - 0.000 x10(3)/mc L [facility] Blood specimen (specimen) 02/20/2019 5:45 PM EST 02/20/2019 6:01 PM EST Narrative Resulting Agency Comment Spec In Lab Zenobia Quijano MD HEMATOLOGY ORDERABLE S Performing Organization Address City/State/[facility] Co de Phone Number [facility] [place] [address] * (ABNORMAL) BMP w/fasting Glucose (02/20/2019 5:45 PM EST) Glucose Fasting 134(H) 65 - 99 mg/dL [facility] Comment: ?Fasting* Glucose Interpretive Criteria [...] of Diabetes Mellitus, Position Statement from the [place] [employer]. ??Diabetes Care, Volume 33, Supplement 1, Apr 2009 Blood Urea Nitrogen 29(H) 8 - 18 mg/dL [facility] Creatinine 1.58(H) 0.70 - 1.20 mg/dL [facility] Sodium 142 135 - 145 mmol/L [facility] Potassium 5.0 3.5 - 5.0 mmol/L [facility] Comment: Please note: ??Patients with WBC >100,000 may have falsely elevated Potassium levels. ??For accurate Potassium quantification in these patients send serum separator tube (gold top) for subsequent determinations. ??Contact the Clinical Chemistry Laboratory if there are any questions. Chloride 106 98 - 107 mmol/L [facility] Carbon Dioxide 23 22 - 31 mmol/L [facility] Anion Gap 13 5 - 15 mmol/L [facility] Calcium 9.1 8.5 - 10.5 mg/dL [facility] Est Glomerular Filtration Rate 35(L) >=60 mL/min/1. 73 m?? [facility] Comment: The eGFR was calculated using the CKD-EPI equation. As with all creatinine based estimates of kidney function, eGFR values calculated with the CKD-EPI equation are not accurate in patients with acute kidney failure, extremes of body mass or the acutely ill. [email or web address] eGFR 41(L) >=60 mL/min/1. 73 m?? [facility] Comment: The eGFR was calculated using the CKD-EPI equation. As with all creatinine based estimates of kidney function, eGFR values calculated with the CKD-EPI equation are not accurate in patients with acute kidney failure, extremes of body mass or the acutely ill. [email or web address] [place] Blood specimen (specimen) 02/20/2019 5:45 PM EST 02/20/2019 6:01 PM EST Narrative Resulting Agency Comment Spec In Lab Jaxon Fontaine MD CHEMISTRY ORDERABLES Performing Organization Address [facility]/ZIP Co de Phone Number [facility] [place] [address] * Anaerobic Culture (02/20/2019 5:42 PM EST) Anaerobic Culture No anaerobic organisms isolated [facility] Deep Wound INGUINAL REGION STRUCTURE / Unknown 02/20/2019 5:42 PM EST 02/20/2019 6:03 PM EST Comment:RIGHT GROIN DEEP WOU ND CULTURE Narrative Resulting Agency Comment Spec In Lab Jaxon Fontaine MD MICROBIOLOGY - GENER AL ORDERABLES Performing Organization Address [facility] Co de Phone Number [facility] [place] [address] * (ABNORMAL) Abscess/Wound Aspirate Culture (02/20/2019 5:42 PM EST) Abscess/Wound Aspirate Culture Escherichia coli isolated from broth culture. Few Staphylococcus lugdunensis (A) [facility] Gram Stain Few Neutrophils seen Rare Gram Positive Cocci seen (A) [facility] Organism Escherichia coli(A) [facility] Organism Staphylococcus lugdunensis(A) [facility] Organism Gram Positive Cocci(A) [facility] Deep Wound INGUINAL REGION STRUCTURE [...] Sensitive Comment:Gentamicin i s not appropriate for [place]-therapy. Staphylococcus lugdunensis Levofloxacin MICROSCAN METHOD Sensitive Staphylococcus [...] Sensitive Staphylococcus lugdunensis Vancomycin MICROSCAN METHOD Sensitive Jaxon Fontaine MD MICROBIOLOGY - GENER AL ORDERABLES [facility] [place] [address] documented in this encounter Visit Diagnoses Not [...] area)1903 (JUN Unhold - Provider: Admin Adt) 0810 (Given - Provider: Hilton Montez RN) 0831 (Given - Provider: Toni Calabrese RN) carvedilol (COREG) tablet 1.56 mg 1.56 mg, Oral, 2 TIMES DAILY WITH MEALS, First dose on Mon02/20/19 at 2200, Until Discontinued, Hold for HR<60 or BP<100, Routine 0832 (Not Given - Provider: Gogo Terrell RN - Reason: Order parameters not met)1700 (Not Given - Provider: Gogo Terrell RN - Reason: Order parameters not met)1718 (JUN Hold - Provider: Admin Adt - Reason: Transfer to a Procedural area)1903 (MAR Unhold - Provider: Admin Adt) 0800 (Not Given - Provider: Hilton Montez RN - Reason: Contraindicated - Comment: HR 58, auscultated)1700 (Not Given - Provider: Hilton Montez RN - Reason: Contraindicated - Comment: HR auscultated 59bpm) 0830 (Given - Provider: Toni Calabrese RN) citalopram (CeleXA) tablet 20 mg 20 mg, Oral, 2 TIMES DAILY, First dose on Mon02/20/19 at 2115, Until Discontinued, Routine 0832 (Given - Provider: Gogo Terrell RN)1718 (JUN Hold - Provider: Admin Adt - Reason: Transfer to a Procedural area)190 (JUN Unhold - Provider: Admin Adt)204 (Given - Provider: Raj Saldana RN) 0809 (Given - Provider: Hilton Montez, TAMEKA)203 (Given - Provider: Claudine Peace, TAMEKA) 0831 (Given - Provider: Toni Calabrese, TAMEKA) docusate sodium (COLACE) capsule 100 mg 100 mg, Oral, 2 TIMES DAILY, First dose on Mon02/26/19 at 1245, Until Discontinued, Routine 0834 (Given - Provider: Goog Terrell RN)171 (JUN Hold - Provider: Admin Adt - Reason: Transfer to a Procedural area)190 ([facility] Unhold - Provider: Admin Adt)2039 (Given - Provider: Raj Saldana RN) 0809 (Given - Provider: Hilton Montez, TAMEKA)203 (Given - Provider: Claudine Peace, TAMEKA) 0831 (Not Given - Provider: Toni Calabrese RN - Reason: Patient/family refused) heparin (Porcine) subcutaneous injection 5,000 Units 5,000 Units, Subcutaneous, EVERY 8 HOURS SCHEDULED, First dose on Mon02/21/19 at 0930, Until Discontinued, Routine 0432 (Given - Provider: Raj Saldana RN)1154 (Given - Provider: Gogo Terrell RN)171 (JUN Hold - Provider: Admin Adt - Reason: Transfer to a Procedural area)190 ([facility] Unhold - Provider: Admin Adt)2039 (Given - Provider: Raj Saldana RN) 0307 (Given - Provider: Raj Saldana RN)1233 (Given - Provider: Hilton Montez, TAMEKA)203 (Given - Provider: Claudine Peace, TAMEKA) 0450 (Given - Provider: Claudine Peace, TAMEKA)1133 (Given - Provider: Toni Calabrese RN) insulin [...] 0612 (Given - Provider: Raj Saldana RN)1718 (JUN Hold - Provider: Admin Adt - Reason: Transfer to a Procedural area)1903 (JUN Unhold - Provider: Admin Adt) 0530 (Given - Provider: Raj Saldana RN) 0557 (Given - Provider: Claudine Peace RN) losartan (COZAAR) tablet 50 mg (CANCELED) 50 mg, Oral, DAILY, First dose on Mon02/21/19 at 0900, Until Discontinued, Routine 0834 (Given - Provider: Gogo Terrell RN)1718 (JUN Hold - Provider: Admin Adt - Reason: Transfer to a Procedural area)1903 (JUN Unhold - Provider: Admin Adt) 0810 (Given - Provider: Hilton Montez RN) melatonin tablet 3 mg 3 mg, Oral, NIGHTLY, First dose on Mon02/24/19 at 2200, Until Discontinued, Routine 1718 ([facility] Hold - Provider: Admin Adt - Reason: Transfer to a Procedural area)190 ([facility] Unhold - Provider: Admin Adt)222 (Given - Provider: Raj Saldana, RN) 2031 (Given - Provider: Claudine Peace RN) pantoprazole (PROTONIX) tablet 40 mg 40 mg, Oral, DAILY, First dose on Mon02/21/19 at 0900, Until Discontinued, DO NOT CRUSH OR OPEN, Routine 0833 (Given - Provider: Gogo Terrell RN)1718 ([facility] Hold - Provider: Admin Adt - Reason: Transfer to a Procedural area)190 ([facility] Unhold - Provider: Admin Adt) 0810 (Given - Provider: Hilton Montez, TAMEKA) 0831 (Given - Provider: Toni Calabrese, TAMEKA) polyethylene glycol (MIRALAX) packet 17 g 17 g, Oral, DAILY, First dose on Mon02/26/19 at 1245, Until Discontinued, Routine 0900 (Not Given - Provider: Gogo Terrell RN - Reason: NPO)1718 ([facility] Hold - Provider: Admin Adt - Reason: Transfer to a Procedural area)190 ([facility] Unhold - Provider: Admin Adt) 0900 (Not Given - Provider: Hilton Montez RN - Reason: Patient/family refused) 0900 (Not Given - Provider: Toni Calabrese RN - Reason: Patient/family refused) simvastatin (ZOCOR) tablet 40 mg 40 mg, Oral, EVERY EVENING, First dose on Mon02/20/19 at 2230, Until Discontinued 1700 (Not Given - Provider: Gogo Terrell RN - Reason: Patient/family refused)1718 ([facility] Hold - Provider: Admin Adt - Reason: Transfer to a Procedural area)190 ([facility] Unhold - Provider: Admin Adt) 1642 (Given - Provider: Hilton Montez, TAMEKA) sodium chloride 0.9% 500 mL IV bolus (COMPLETED) at 250 mL/hr, Intravenous, ONCE, 1 dose, On Mon02/28/19 at 0530 0529 (New Bag - Provider: Raj Saldana, RN)0729 (Stopped - Provider: Hilton Montez, TAMEKA) sodium chloride 0.9% 500 mL IV bolus (COMPLETED) at 250 mL/hr, Intravenous, ONCE, 1 dose, On Mon03/01/19 at 0730 0910 (New Bag - Provider: Toni Calabrese, TAMEKA)1110 (Stopped - Provider: Toni Calabrese, TAMEKA) PRN [...] Procedural area)1903 (MAR Unhold - Provider: Admin Adt)2228 (Given - Provider: Raj Saldana, TAMEKA) 030 (Given - Provider: Raj Saldana, TAMEKA)2032 [...] insulin. 0000 (New Bag - Provider: Gogo E Gile, RN)0015 (Due: Stopped - Provider: Gogo Terrell RN)1718 (JUN Hold - Provider: Admin Adt - Reason: Transfer to a Procedural area)1903 (JUN Unhold - Provider: Admin Adt) dextrose [...] Bolus (Units))., Medication Name: aspart (Novolog) 1718 ([facility] Hold - Provider: Admin Adt - Reason: Transfer to a Procedural area)190 ([facility] Unhold - Provider: Admin Adt) ondansetron (ZOFRAN) injection 4-8 mg(Linked Group 4) 4-8 mg, Intravenous, EVERY 8 HOURS PRN, Starting on Mon02/20/19 at 2056, Until Mon03/01/19 at 1808, Nausea, Start with 4mg and if ineffective in 30 minutes, give an additional 4mg 1717 ([facility] Hold - Provider: Admin Adt - Reason: Transfer to a Procedural area)1902 ([facility] Unhold - Provider: Admin Adt) ondansetron (ZOFRAN) tablet 4-8 mg(Linked Group 4) 4-8 mg, Oral, EVERY 8 HOURS PRN, Starting on Mon02/20/19 at 2056, Until Mon03/01/19 at 1808, Nausea, Vomiting, If multiple antiemetics are ordered, use ondansetron first. PO Preferred. If patient unable to take PO, may give IV if ordered. May repeat times one in 45 minutes if ineffective. , Routine 1717 ([facility] Hold - Provider: Admin Adt - Reason: Transfer to a Procedural area)1902 ([facility] Unhold - Provider: Admin Adt) oxyCODONE (ROXICODONE) immediate release tablet 5 mg 5 mg, Oral, EVERY 4 HOURS PRN, Starting on Mon02/20/19 at 1738, Until Mon03/01/19 at 1808, Pain, Routine 171 ([facility] Hold - Provider: Admin Adt - Reason: Transfer to a Procedural area)190 ([facility] Unhold - Provider: Admin Adt) Linked Groups [...] 4mg documented in this encounter Care Teams Motion Picture Cameraman Relationship Specialty Start Date End Date Shirley Yu MD [address] [place] [address] PCP - General 11/19/14 documented as of this encounter
--- OUTSIDE RECORDS SUMMARY | 2023-12-13 18:25 | XMS_ITS | Encounter Summary ---
Author Organization [facility] [place] [address] Care Team Providers Care Desulphurizer Operator Name Role Phone Shirley Yu MD Primary Care Provider [phone] Reason for Visit * Auth/Cert Specialty Diagnoses / Procedures Referred By Dominik mcleod Referred To Contact Diagnoses Groin hematoma right groin hematoma n/a n/a Procedures PRO BLOOD/LYMPH SYSTEM PROCEDURE EXPLORATION GROIN W\DRAIN & DEBRIDE LYMPHOCELE (WRVU *) Referral ID Status Reason Start Date Expiration Date Visits Re quested Visits Authorized [id number] 1 1 Encounter Details Date Type Department Care Team (Late st Contact Info) Description 02/22/2019 3:48 PM EST Anesthesia Event [place] [phone] Gus Martell MD [facility] [place] [address] Lakshmi Kc MD [facility] [place] [address] Anesthesia Record Procedure Summary Procedure Name Responsible Anesthesiologist Anesthesia Start Time Anesthesia Stop Time DEBRIDEMENT SKIN AND SUBCU, LOWER EXTREMITY (WRVU 1.01) (Right) Gus Martell MD 02/22/19 1548 02/22/19 1636 Events Date Time Event Comment 02/22/2019 1424 1548 Start 1549 AN Verify 1550 An Start Data 1558 An Induction 1559 An Intubation 1602 Anesthesia Ready 1606 Break/Relief In Odalys Jaimes se, SCHOOL INSPECTOR 1611 Procedure Start 1623 Procedure Stop 1626 Extubation/LMA Out 1628 an stop data 1636 Recovery or ICU Handoff Deidre ent care was transferred to the destination unit staff after review of the patient's medical history, current anesthetic/surgical status and plan, according to the Provider Handoff Checklist. 1636 Stop Meds Name Total Propofol 200 mg fentaNYL 25 mcg IV Lidocaine 100 mg Ondansetron 4 mg ePHEDrine 5 mg Dextrose 50 % 20 mL piperacillin-tazobactam (ZOS YN) 3.375 g vial attach to sodium chloride 0.9% 50 mL Mini-Bag Plus 3.375 g Lactated Ringers 200 mL * Agents Name [...] Vinay Celeste RN 02/28/19 0830 by Hilton Montez RN (RETIRED) Peripheral IV Line - Single Lumen 02/21/19; 1225; cephalic vein (lateral side of arm), left; aqww-cpu-qjamqg catheter system; 22 gauge, 1 in length; gerda john RN; distraction, intradermal injection; no longer indicated; 03/01/19; 0851 02/21/19 1225 by Gerda John RN 03/01/19 0851 by Tayla De Jesus LNA (RETIRED) Peripheral IV Line - Single Lumen 02/21/19; 1245; cephalic vein (lateral side of arm), right; fsys-nfk-sfzyfw catheter system; 22 gauge, 1 in length; Gerda John RN; distraction, intradermal injection; 1; median vein (underside of arm), left; no longer indicated; 03/01/19; 0851 02/21/19 1245 by Gerda John RN 03/01/19 0851 by Tayla De Jesus LNA Supraglottic Mask Ventilation: Ea sy (1); LMA Type: iGel; LMA Size: 4; Inserted by: Bonifacio MEEKS; Removal Date: 02/22/19; Removal Time: 16202/22/19 1559 by Walter Valdovinos CRNA 02/22/19 1626 by Odalys Steve CRNA documented in this encounter Social History [...] OR Notes * Anesthesia Postprocedure Evaluation - Gus Martell MD - 02/22/2019 4:39 PM EST Department of Anesthesiology Post-procedure Note Patient: Jennifer Snyder Procedure Summary Date: 02/22/19 Room / Location: [facility] OR [facility] MAIN OR Anesthesia Start: 1548 Anesthesia Stop: 1636 Procedure: DEBRIDEMENT SKIN AND SUBCU, LOWER EXTREMITY (WRVU 1.01) (Right ) Diagnosis: Hematoma (right groin hematoma) Surgeon: Kaity Fontaine MD Responsible Provider: Gus Martell MD Anesthesia Type: general ASA Status: 3 All Anesthesia Providers: Anesthesiologist: Gus Martell MD SCHOOL INSPECTOR: Walter Valdovinos CRNA Vitals Value Taken Time BP 177/55 02/22/2019 4:32 PM Temp Pulse 67 02/22/2019 4:38 PM Resp 17 02/22/2019 4:38 PM SpO2 96 % 02/22/2019 4:38 PM Pain Level Vitals shown include unvalidated device data. Patient Location: PACU/[facility] Level of Consciousness: Conscious but Sleepy Pain Management: Satisfactory Analgesia PONV: None Cardiovascular Status: At Baseline Respiratory Status: At Baseline Postoperative Fluid Status: Intravascular EUvolemia Possible Anesthetic Complications: NONE apparent at time of evaluation Final Primary Anesthesia Type: General (The anesthetic type performed was the same as planned.) Comments: * Anesthesia Preprocedure Evaluation - Gus Martell MD - 02/22/2019 2:21 PM EST Pre-Anesthesia Evaluation for: Jennifer Snyder [...] *) performed by Kaity Fontaine MD at [facility] OR ??? PRO BRONCHOSCOPY, DIAGNOSTIC N/A 06/21/2018 BRONCHOSCOPY, DIAGNOSTIC (WRVU 2.78) performed by César Escobar MD at [facility] OR ? ? PRO EDG FLEXIBLE TRANSORAL ABLATE TUMOR POLYP/LESION W/DILATION & WIRE N/A 06/22/2016 EGD, TRANSORAL; WITH ABLATION OF TUMOR(S), POLYP(S), OR OTHER LESION(S) (WRVU 4.26) performed by Christos Donald MD at [facility] ENDOSCOPY ??? PRO INJECT NERV BLCK, INTERCOST, MULTPL Right 06/21/2018 NERVE BLOCK, INTERCOSTAL NERVE, MULTIPLE (WRVU 1.68) performed by César Escobar MD at [facility] OR ??? PRO REOPERATION, BYPASS GRAFT Right 02/04/2019 @RE-OP FOR RE-DO LOWER EXTREMITY BYPASS GRAFT, >1 MONTH P\ ORIGINAL SURGERY, ADD-ON CODE (WRVU 3.08) performed by Kaity Fontaine MD at [facility] OR ??? PRO THORACOSCOPY WITH THERAPEUTIC WEDGE RESECTION INITIAL UNILAT Right 06/21/2018 @THORACOSCOPY, SURG; W/THERAPEUTIC WEDGE RESECTION, INIT UNILATERAL (WRVU 14.5) performed by César Escobar MD at [facility] MAIN OR ??? PRO THROMBOENDARTECTMY FEMORAL COMMON Right 02/04/2019 @ENDARTERECTOMY, COMMON FEMORAL W OR W/O PATCH GRAFT (WRVU 15.31) performed by Kaity Fontaine MD [facility] MAIN OR ??? PRO THROMBOENDARTECTMY FEMORAL DEEP Right 02/04/2019 @ENDARTERECTOMY, PROFUNDAPLASTY, DEEP, PROFUNDA FEMORIS W OR W/O PATCH GRAFT (WRVU 18.58) performedby Kaity Fontaine MD at [facility] MAIN OR ??? PRO TX EXTENSIVE RETINOPATHY, PHOTOCOAGULATION Left 2018 PRP OS - [place], [place] ??? PRO UPPER GI ENDOSCOPY, BIOPSY N/A 10/24/2016 UPPER GASTROINTESTINAL ENDOSCOPY,WITH BIOPSY SINGLE OR MULTIPLE (WRVU 2.49) performed by Agapito Parmar MD at [facility] ENDOSCOPY ??? PRO UPPER GI ENDOSCOPY, DIAGNOSTIC N/A 06/22/2016 EGD, UPPER GI ENDOSCOPY performed by Christos Donald MD at [facility] ENDOSCOPY ??? RETINAL LASER SURGERY [...] SFA stents ??? VASCULAR SURGERY 1009 Right DEER FARMER-AK pop vein graft ??? VS ARTERIOGRAM LOWER EXTREMITY VASCULAR SURGERY 04/27/2018 VS Arteriogram Lower Extremity Vascular Surgery 04/27/2018 Kaity Fontaine MD [facility] INTERVENTIONL RAD ??? YAG CAPSULOTOMY [...] been reviewed. Physical Exam: Most Recent Vitals: 02/22/19 1321 BP: Pulse: Resp: Temp: SpO2: 94% Body mass index is 33.05 kg/m??. Height: 170.2 cm (5' 7) Weight: 95.7 kg (211 lb) Airway Assessment: Mallampati: III TM distance: >3 [...] GSV; 2012 L EIA stent; 04/27/18 R DEER FARMER/proximal graft and distal graft/pop PRE PAROLE COUNSELING AIDE, more recent femoral endarterecomy), s/p right wedge [...] consented to blood products. Plan discussed with SCHOOL INSPECTOR. PAT Clinic Note documented in this encounter Plan of Treatment Upcoming Encounters Date Type Department Care Team (Late st Contact Info) Description 12/19/2023 1:00 PM EDT Tech [place] [phone] Marguerite Macias 12/19/2023 3:00 PM EDT Office [place] [address] Gardenia Golden, CHIROPRACTOR SOLE PRACTITIONER [facility] DR VASCULAR SURGERY [place], [place] [id number] 01/29/2024 1:[address] [place] [address] César Escobar MD [facility] [place] [address] 01/29/2024 2:30 PM EDT Office [place] [address] César Escobar MD [facility] DR THORACIC SURGERY [place], [place] [id number] documented as of this encounter Visit Diagnoses Not on filedocumented in this encounter Administered Medications Inactive Administered Medications - up to 3 most recent administrations Medication Order MAR Action Action Date Dose Rate Site dextrose 50% intravenous solution PRN, Starting on Mon02/22/19 at 1554, Until Mon02/22/19 at 1636, Anesthesia Intra-op, Routine Given 02/22/2019 3:54 PM EST 20 mLs ePHEDrine 5 mg/mL multi-dose injection Intravenous, PRN, Starting on Mon02/22/19 at 1618, Until Mon02/22/19 at 1636, Anesthesia Intra-op, Routine Given 02/22/2019 4:18 PM EST 5 mg fentaNYL 50 mcg/mL multi-dose injection Intravenous, PRN, Starting on Mon02/22/19 at 1612, Until Mon02/22/19 at 1636, Anesthesia Intra-op, Routine Given 02/22/2019 4:12 PM EST 25 mcg lactated ringers infusion CONTINUOUS PRN, Starting on Mon02/22/19 at 1548, Until Mon02/22/19 at 1636, Anesthesia Intra-op New Bag 02/22/2019 3:48 PM EST lidocaine (PF) (XYLOCAINE) 100 mg/5 mL (2 %) injection Intravenous, PRN, Starting on Mon02/22/19 at 1558, Until Mon02/22/19 at 1636, Anesthesia Intra-op, Routine Given 02/22/2019 3:58 PM EST 100 mg ondansetron (ZOFRAN) injection Intravenous, PRN, Starting on Mon02/22/19 at 1620, Until Mon02/22/19 at 1636, Anesthesia Intra-op, Routine Given 02/22/2019 4:20 PM EST 4 mg piperacillin-tazobactam (ZOSYN) 3.375 g vial attach [...] 3.375 g 12.5 mL/hr L eft Arm propofol (DIPRIVAN) 10 mg/mL bolus injection (Anesthesia) Intravenous, PRN, Starting on Mon02/22/19 at 1558, Until Mon02/22/19 at 1636, Anesthesia Intra-op Given 02/22/2019 3:58 PM EST 200 mg documented in this encounter Care Teams Desulphurizer Operator Relationship Specialty Start Date End Date Shirley Yu MD [address] [place] [address] PCP - General 11/19/14 documented as of this encounter
--- OUTSIDE RECORDS SUMMARY | 2023-12-13 18:26 | XMS_ITS | Encounter Summary ---
Author Organization [facility] [place] [address] Care Team Providers Care Electronic Warfare Officer Name Role Phone Shirley Yu MD Primary Care Provider [phone] Encounter Details Date Type Department Care Team (Late st Contact Info) Description 02/18/2019 Notes Only [place] [address] Tamiko Kent, SENIOR GAMES TECHNICIAN [facility] [place] [address] Social History Tobacco Use Types Packs/Day Years [...] as of this encounter Progress Notes * Tamiko Kent, RN - 02/18/2019 3:11 PM EST Pt called to inform us that she was seen at [place] emergency room for ongoing bleeding from right groin incision s/p 02/04/2019 Right femoral endarterectomy, revision of proximal vein bypass, withbovine patch angioplasty, Right profunda plasty with bovine patch angioplasty. Pt reports that she has been slowly bleeding from the incision since discharge. She needs to changethe 4x4 gauze dressing 2-4x/day. She went to the local ED who initially tried steri-strips but theydid not stick. Pt reports they then placed 3 stitches. She reports she continues to ooze blood. Pt reports her hemoglobin was around 10 on a [place] ED blood draw. She is rosen to follow-up in clinic Monday and will keep that appt. Pt given instructions on when to present sooner (increased bleeding, saturating dressings, etc.) documented in this encounter Plan of Treatment Upcoming Encounters Date Type Department Care Team (Late st Contact Info) Description 12/19/2023 1:00 PM EDT Tech Visit [place] [phone] Marguerite Macias 12/19/2023 3:00 PM EDT Office [place] [phone] Gardenia Golden APRN [facility] [place] [address] 01/29/2024 1:[address] [place] [address] César Escobar MD [facility] [place] [address] 01/29/2024 2:30 PM EDT Office [place] [address] Cséar Escobar MD [facility] DR THORACIC SURGERY [place], [place] [phone] documented as of this encounter Visit Diagnoses Not on filedocumented in this encounter Care Teams Electronic Warfare Officer Relationship Specialty Start Date End Date Shirley Yu MD [address] [place] [address] PCP - General 11/19/14 documented as of this encounter
--- OUTSIDE RECORDS SUMMARY | 2023-12-13 18:26 | XMS_ITS | Encounter Summary ---
[place] [address] Care Team Providers Care Supervisor Marble Name Role Phone Shirley Yu MD Primary Care Provider [phone] Reason for Visit * Auth/Cert Specialty Diagnoses / Procedures Referred By Dominik mcleod Referred To Contact Diagnoses Groin hematoma right groin hematoma n/a n/a Procedures PRO BLOOD/LYMPH SYSTEM PROCEDURE EXPLORATION GROIN W\DRAIN & DEBRIDE LYMPHOCELE (WRVU *) Referral ID Status Reason Start Date Expiration Date Visits Re quested Visits Authorized [id number] 1 1 Encounter Details Date Type Department Care Team (Late st Contact Info) Description 02/20/2019 4:26 PM EST Anesthesia Event Main [place] [address] Gus Martell MD [facility] [place] [address] Nathaly Espana CRNA [facility] [place] [address] Anesthesia Record Procedure Summary Procedure Name Responsible Anesthesiologist Anesthesia Start Time Anesthesia Stop Time EXPLORATION GROIN W\DRAIN & DEBRIDE LYMPHOCELE (WRVU 12.32) (Right) Gus Martell MD 02/20/19 1626 02/20/19 1723 Events Date Time Event Comment 02/20/2019 1544 1626 AN Verify 1626 Start 1626 An Start Data 1638 An Induction 1639 An Intubation 1642 Anesthesia Ready 1704 Break/Relief In Carlos Mondragon 1717 Extubation/LMA Out 1718 an stop data 1722 Recovery or ICU Handoff Deidre ent care was transferred to the destination unit staff after review of the patient's medical history, current anesthetic/surgical status and plan, according to the Provider Handoff Checklist. 1723 Stop 1723 Break/Relief Out Meds Name Total Propofol 200 mg fentaNYL 25 mcg IV Lidocaine 60 mg Ondansetron 4 mg ePHEDrine 15 mg Piperacillin-Tazobactam 3.375 g Lactated Ringers 300 mL dextrose 10% infusion 100 mL * Agents Name O2 Air N2O Sevoflurane (et) * Blood No blood administrations on file. Lines, Drains, and Airways Type Details Placement Removal (RETIRED) Peripheral IV Line - Single Lumen 02/04/19; 1225; metacarpal vein (top of hand), right; [id number] catheter system; 18 gauge; Cho; 02/21/19; 1632 02/04/19 1225 by Cheng Rueda, DO 02/21/19 1632 by Vinay Celeste RN Incision 02/04/19; 1253; groi n; vertical; 12/06/21 (LDA cleanup utility RA#[id number]); 1715 (LDA cleanup utility RA#[id number]) 02/04/19 1253 by Ava Flynn RN 12/06/21 1715 by Nuris Chacko (RETIRED) Peripheral IV Line - Single Lumen 02/20/19; 1454; metacarpal vein (top of hand), left; tskh-mmc-mtonut catheter system; 20 gauge; Penny ENGLISH; distraction, intradermal injection; 0; removed per policy/procedure, site care per policy/procedure, site symptomatic (c/o pain ); 02/21/19; 1250 02/20/19 1454 by Penny Gamboa, RN 02/21/19 1250 by Gerda Flynn, TAMEKA Supraglottic Mask Ventilation: No t Attempted (0); LMA Type: iGel; LMA Size: 4; Inserted by: Jovi; Removal Date: 02/20/19; Removal Time: 171602/20/19 1639 by Nathaly Espana I VEHICLE OPERATOR 02/20/19 1717 by Carlos Mondragon Incision 02/20/19; 1652; groi n; 12/06/21 (LDA cleanup utility RA#[id number]); 1715 (LDA cleanup utility RA#[id number]) 02/20/19 1652 by Juli Wells RN 12/06/21 1715 by Nuris Chacko documented [...] Postprocedure Evaluation - Gus Martell MD - 02/21/2019 3:37 PM EST Department of Anesthesiology Post-procedure Note Patient: Jennifer Snyder Procedure Summary Date: 02/20/19 Room / Location: [facility] OR [address] [place] [address] MAIN OR Anesthesia Start: 162 Anesthesia Stop: 1722 Procedure: EXPLORATION GROIN W\DRAIN & DEBRIDE LYMPHOCELE (WRVU *) (Right ) Diagnosis: Hematoma (right groin hematoma) Surgeon: Kaity Fontaine MD Responsible Provider: Gus Martell MD Anesthesia Type: general ASA Status: 3 All Anesthesia Providers: Anesthesiologist: Gus Martell MD VEHICLE OPERATOR: Nathaly Espana CRNA Vitals Value Taken Time BP 151/60 02/21/2019 3:30 PM Temp 36.9 ??C (98.42 ??F) 02/21/2019 3:30 PM Pulse 58 02/20/2019 10:00 PM Resp 16 02/21/2019 8:03 AM SpO2 94 % 02/21/2019 3:36 PM Pain Level 6 02/21/2019 8:43 AM Vitals shown include unvalidated device data. Patient Location: PACU/SDP Level of Consciousness: Awake and Alert Pain Management: Satisfactory Analgesia PONV: None Cardiovascular Status: At Baseline Respiratory Status: At Baseline Postoperative Fluid Status: Intravascular EUvolemia Possible Anesthetic Complications: NONE apparent at time of evaluation Final Primary Anesthesia Type: General (The anesthetic type performed was the same as planned.) Comments: * Anesthesia Preprocedure Evaluation - Gus Martell MD - 02/20/2019 2:17 PM EST Pre-Anesthesia Evaluation for: Jennifer Snyder a 58 y.o. female. Procedure(s): EXPLORATION GROIN W\DRAIN & DEBRIDE LYMPHOCELE (WRVU *) Patient Active Problem List Diagnosis ??? Groin [...] 07/03/2018 OS - Dr. Szymanski ??? PRO BRONCHOSCOPY, DIAGNOSTIC N/A 06/21/2018 BRONCHOSCOPY, DIAGNOSTIC (WRVU 2.78) performed by César Escobar MD at [facility] MAIN OR ? ? PRO EDG FLEXIBLE TRANSORAL ABLATE TUMOR POLYP/LESION W/DILATION & WIRE N/A 06/22/2016 EGD, TRANSORAL; WITH ABLATION OF TUMOR(S), POLYP(S), OR OTHER LESION(S) (WRVU 4.26) performed by Christos Donald MD at [facility] ENDOSCOPY ??? PRO INJECT NERV BLCK, INTERCOST, MULTPL Right 06/21/2018 NERVE BLOCK, INTERCOSTAL NERVE, MULTIPLE (WRVU 1.68) [facility] ??? PRO REOPERATION, BYPASS GRAFT Right 02/04/2019 @RE-OP FOR RE-DO LOWER EXTREMITY BYPASS GRAFT, >1 MONTH P\ ORIGINAL SURGERY, ADD-ON CODE (WRVU 3.08) performed by Kaity Fontaine MD at [facility] MAIN OR ??? PRO THORACOSCOPY WITH THERAPEUTIC WEDGE RESECTION INITIAL UNILAT Right 06/21/2018 @THORACOSCOPY, SURG; W/THERAPEUTIC WEDGE RESECTION, INIT UNILATERAL (WRVU 14.5) performed by César Escobar MD at [facility] MAIN OR ??? PRO THROMBOENDARTECTMY FEMORAL COMMON Right 02/04/2019 @ENDARTERECTOMY, COMMON FEMORAL W OR W/O PATCH GRAFT (WRVU 15.31) performed by Kaity Fontaine MD [facility] MAIN OR ??? PRO THROMBOENDARTECTMY FEMORAL DEEP Right 02/04/2019 @ENDARTERECTOMY, PROFUNDAPLASTY, DEEP, PROFUNDA FEMORIS W OR W/O PATCH GRAFT (WRVU 18.58) performedby Kaity Fontaine MD at [facility] MAIN OR ??? PRO TX EXTENSIVE RETINOPATHY, PHOTOCOAGULATION Left 2017 PRP OS - [place], [place] ??? PRO UPPER GI ENDOSCOPY, BIOPSY N/A 10/24/2016 UPPER GASTROINTESTINAL ENDOSCOPY,WITH BIOPSY SINGLE OR MULTIPLE (WRVU 2.49) performed by Agapito Parmar MD at [facility] ENDOSCOPY ??? PRO UPPER GI ENDOSCOPY, DIAGNOSTIC N/A 06/22/2016 EGD, UPPER GI ENDOSCOPY performed by Christos Donald MD at [facility] ENDOSCOPY ??? RETINAL LASER SURGERY Left 01/20/2012 OS ??? RETINAL LASER SURGERY Left 03/02/2012 OS ??? RETINAL LASER SURGERY Left 08/10/2012 OS ??? RETINAL LASER SURGERY Right 09/28/2012 OD ??? RETINAL LASER SURGERY Right 10/26/2012 OD ??? RETINAL LASER SURGERY Right 02/15/2013 PRP OD - Dr Vega ??? RETINAL LASER SURGERY Left 05/22/2015 PRP OS - CBC ??? VASCULAR SURGERY 2000 Left CEA ??? VASCULAR SURGERY 2006 Left com iliac stent, R SFA stents ??? VASCULAR SURGERY 1009 Right SPOOL CLEANER-AK pop vein graft ??? VS ARTERIOGRAM LOWER EXTREMITY VASCULAR SURGERY 04/27/2018 VS Arteriogram Lower Extremity Vascular Surgery 04/27/2018 Kaity Fontaine MD [facility] INTERVENTIONL RAD ??? YAG CAPSULOTOMY Bilateral [...] full Cardiovascular Assessment: Rate: normal Pulmonary Assessment: Dental Assessment: (+) upper dentures Misc Assessment: IV access: Peripheral line Anesthesia Plan: ASA 3 general, with a(n) intravenous induction 58 y.o., 96kg female with a complex PMH notable for DM with sequelae, HTN, HL, MANISH (CPAP) and peripheral vascular disease s/p common femoral endarterectomy who presents for wound debridement. PSHx: s/p 2007 R fem-AK-pop bypass with GSV; 2012 L EIA stent; 04/27/18 R SPOOL CLEANER/proximal graft and distal graft/pop MECHANICAL EQUIPMENT SALES ENGINEER, more recent femoral endarterecomy), s/p right wedge resection. Medications: ASA, carvedilol, cilostazol, citalopram, dabigatran, levothyroxine, insulin, losartan,pantoprazole, simvastatin Anesthetic hx: No reported prior complications with anesthesia Airway hx: prior grade 1 view with Mac 3 06/2018: sinus bradycardia ECHO: none PFTs: 04/2018: isolated reduction in diffusing capacity. FVC 96% FEV1 91% FEV1/FVC 94% DSB 62% Allergies: -- Sulfa (Sulfonamide Antibiotics) -- Renal failure, bleeding -- Pcn (Penicillins) -- Unknown NPO Status: Appropriate Anesthetic Plan: GA with ETT Standard ASA monitoring + arterial line Perioperative glucose monitoring Adequate IV access Region - Other Informed Consent: Anesthetic plan and risks discussed with patient. Use of blood products discussed with patient who consented to blood products. Plan discussed with attending and resident. PAT Clinic Note documented in this encounter Plan of Treatment Upcoming Encounters Date Type Department Care Team (Late st Contact Info) Description 12/19/2023 1:00 PM EDT Tech Visit [place] [address] Marguerite Macias 12/19/2023 3:00 PM EDT Office Visit [place] [address] Gardenia Golden, ELECTRICAL PROJECT MANAGER [facility] [place] [address] 01/29/2024 1:[address] [place] [address] César Escobar MD [facility] [place] [address] 01/29/2024 2:30 PM EDT Office Visit [place] [phone] César Escobar MD [facility] [place] [address] documented as of this encounter Visit Diagnoses Not on filedocumented in this encounter Administered Medications Inactive Administered Medications - up to 3 most recent administrations Medication Order MAR Action Action Date Dose Rate Site dextrose 10% infusion CONTINUOUS PRN, Starting on Mon02/20/19 at 1642, Until Mon02/20/19 at 1732, Anesthesia Intra-op New Bag 02/20/2019 4:42 PM EST ePHEDrine 5 mg/mL multi-dose injection Intravenous, PRN, Starting on Mon02/20/19 at 1704, Until Mon02/20/19 at 1725, Anesthesia Intra-op, Routine Given 02/20/2019 5:08 PM EST 10 mg Given 02/20/2019 5:04 PM EST 5 mg fentaNYL 50 mcg/mL multi-dose injection Intravenous, PRN, Starting on Mon02/20/19 at 1703, Until Mon02/20/19 at 1725, Anesthesia Intra-op, Routine Given 02/20/2019 5:03 PM EST 25 mcg lactated ringers infusion CONTINUOUS PRN, Starting on Mon02/20/19 at 1626, Until Mon02/20/19 at 1725, Anesthesia Intra-op New Bag 02/20/2019 4:26 PM EST lidocaine (PF) (XYLOCAINE) 100 mg/5 mL (2 %) injection Intravenous, PRN, Starting on Mon02/20/19 at 1638, Until Mon02/20/19 at 1725, Anesthesia Intra-op, Routine Given 02/20/2019 4:38 PM EST 60 mg ondansetron (ZOFRAN) injection Intravenous, PRN, Starting on Mon02/20/19 at 1707, Until Mon02/20/19 at 1725, Anesthesia Intra-op, Routine Given 02/20/2019 5:07 PM EST 4 mg piperacillin-tazobactam (ZOSYN) injection PRN, Starting on 11/13/19 at 1642, Until Mon02/20/19 at 1725, Anesthesia Intra-op, Routine Given 02/20/2019 4:42 PM EST 3.375 g propofol (DIPRIVAN) 10 mg/mL bolus injection (Anesthesia) Intravenous, PRN, Starting on Mon02/20/19 at 1638, Until Mon02/20/19 at 1725, Anesthesia Intra-op Given 02/20/2019 4:38 PM EST 200 mg documented in this encounter Care Teams Supervisor Marble Relationship Specialty Start Date End Date Shirley Yu MD [address] [place] [address] PCP - General 11/19/14 documented as of this encounter
--- OUTSIDE RECORDS SUMMARY | 2023-12-13 18:26 | XMS_ITS | Encounter Summary ---
Author Organization [facility]ly [facility] [place] [address] Care Team Providers Care Slurry Control Operator Helper Name Role Phone Shirley Yu MD Primary Care Provider [phone] Reason for Visit * Reason Comments Wound Check wound check Encounter Details Date Type Department Care Team (Late st Contact Info) Description 02/14/2019 11:00 AM EST Office Visit [place] [address] Kaity Fontaine MD [facility] [place] [address] PAD (peripheral artery disease) Social History Tobacco [...] Sign Reading Time Taken Comments Blood Pressure 158/61 02/14/2019 11:02 AM EST Pulse 60 02/14/2019 11:02 AM EST Temperature - - Respiratory Rate 18 02/14/2019 11:02 AM EST Oxygen Saturation - - Inhaled Oxygen Concentration - - Weight 95.7 kg (211 lb) 02/14/2019 11:02 AM EST Height 170.2 cm (5' 7) 02/14/2019 11:02 AM EST Body Mass Index 33.05 02/14/2019 11:02 AM EST documented in this encounter Progress Notes * Kaity Fontaine MD - 02/14/2019 11:00 AM EST Vascular Surgery Clinic Visit February 14, 2019 CC: Patient is a 58 y.o. female who is here for wound check. Presents for scheduled follow up visit. Doing well at home. On exam, patient in NAD. Right groin incision with underlying hematoma and slight erythema. No drainage or fluctuance. Start clindamycin for 10 days F/u next week for wound check Kaity Fontaine MD documented in this encounter Plan of Treatment Upcoming Encounters Date Type Department Care Team (Late st Contact Info) Description 12/19/2023 1:00 PM EDT Tech [place] [phone] Marguerite Macias 12/19/2023 3:00 PM EDT Office Visit [place] [address] Gardenia Golden APRN [facility] [place] [place] [address] 01/29/2024 1:[address] [place] [address] César Escobar MD [facility] [place] [address] 01/29/2024 2:30 PM EDT Office Visit [place] [phone] César Escobar MD [facility] [place] [address] documented as of this encounter Visit Diagnoses Diagnosis PAD (peripheral artery disease) Peripheral vascular disease, unspecified documented in this encounter Care Teams Slurry Control Operator Helper Relationship Specialty Start Date End Date Shirley Yu MD [address] [place] [address] PCP - General 11/19/14 documented as of this encounter
--- OUTSIDE RECORDS SUMMARY | 2023-12-13 18:26 | XMS_ITS | Encounter Summary ---
Author Organization [facility] [place] [address] Care Team Providers Care Latrine Cleaner Name Role Phone Shirley Yu MD Primary Care Provider Encounter Details Date Type Department Care Team (Late st Contact Info) Description 02/20/2019 Orders Only [place] [address] Zenobia Quijano MD [facility] [place] [address] Hematoma (Primary Dx) Social History Tobacco Use Types [...] PM EDT Tech [place] [address] Marguerite Macias 12/19/2023 3:00 PM EDT Office Visit [place] [address] Gardenia Golden APRN [facility] [place] [address] 01/29/2024 1:[address] [place] [address] César Escobar MD [facility] [place] [address] 01/29/2024 2:30 PM EDT Office Visit [place] [phone] César Escobar MD [facility] [place] [address] Scheduled Orders Name Type Priority Associated Diagnoses Orde r Schedule EXPLORATION GROIN W\DRAIN & DEBRIDE LYMPHOCELE Procedures Routine Hematoma One Time for 1 Occurrences starting 02/20/2019 until 02/20/2019 documented as of this encounter Visit Diagnoses Diagnosis Hematoma- Primary Contusion of unspecified site documented in this encounter Care Teams Latrine Cleaner Relationship Specialty Start Date End Date Shirley Yu MD [address] [place] [address] PCP - General 11/19/14 documented as of this encounter
--- OUTSIDE RECORDS SUMMARY | 2023-12-13 18:26 | XMS_ITS | Encounter Summary ---
[place] [address] Care Team Providers Care Correspondence Review Clerk Name Role Phone Shirley Yu MD Primary Care Provider [phone] Reason for Visit * Auth/Cert Specialty Diagnoses / Procedures Referred By Dominik mcleod Referred To Contact Diagnoses Groin hematoma right groin hematoma n/a n/a Procedures PRO BLOOD/LYMPH SYSTEM PROCEDURE EXPLORATION GROIN W\DRAIN & DEBRIDE LYMPHOCELE (WRVU *) Referral ID Status Reason Start Date Expiration Date Visits Re quested Visits Authorized [id number] 1 1 Encounter Details Date Type Department Care Team (Late st Contact Info) Description 02/20/2019 2:49 PM EST - 02/20/2019 4:28 PM EST Surgery [place] [phone] Jaxon Fontaine MD [facility] [place] [address] EXPLORATION GROIN W\DRAIN & DEBRIDE LYMPHOCELE (WRVU 12.32) Social History Tobacco Use Types Packs/Day Years [...] Sign Reading Time Taken Comments Blood Pressure 170/63 02/20/2019 2:32 PM EST Pulse 61 02/20/2019 2:32 PM EST Temperature 36.8 ??C (98.2 ??F) 02/20/2019 2:32 PM ES T Respiratory Rate 16 02/20/2019 2:32 PM EST Oxygen Saturation 100% 02/20/2019 2:32 PM EST Inhaled Oxygen Concentration - - Weight 95.7 kg (211 lb) 02/20/2019 2:32 PM EST Height 170.2 cm (5' 7) [...] DILATION AND TEST, RUSSELL; TECHRUSSELL [place] [facility] [place]rive at: Partnership Marketing Manager Area [phone] Future Orders Complete By Expires SHEFALI, legs, multiple levels [VAS8 Custom] 03/31/2019 (Approximate) 06/30/2019 Process Instructions: There is no in-house vascular laboratory animal caretaker available on weeknights (5pm-8am), weekends, or holidays. IF THIS IS A REQUEST FOR AN EMERGENT STUDY DURING THOSE HOURS, please have the senior provider responsible for the patient page the Vascular Surgery Fellow/Senior Resident data migration consultant to discuss options. Scheduling Instructions: Questions: Indication for study/signs & symptoms: PAD Question to be answered: change in blood flow to feet Preferred location?: [facility] Arterial Duplex Leg, Unil [VAS32 Custom] 03/31/2019 (Approximate) 09/30/2019 Process Instructions: There is no in-house vascular laboratory animal caretaker available on weeknights (5pm-8am), weekends, or holidays. IF THIS IS A REQUEST FOR AN EMERGENT STUDY DURING THOSE HOURS, please have the senior provider responsible for the patient page the Vascular Surgery Fellow/Senior Resident data migration consultant to discuss options. Scheduling Instructions: Questions: Indication for study/signs & symptoms: s/p RIGHT fem-pop proximal anastomosis redo, ? change Question to be answered: patency Laterality: Right Is there a RIGHT LOWER EXTREMITY graft?: Yes RIGHT Graft Location: fem pop Preferred location?: [facility] Referral to Home Health - at DISCHARGE [[id number] CPT(R)] As directed Process Instructions: Scheduling Instructions: Comments: DOCUMENTATION FOR VNA SERVICES (INCLUDING THOSE PATIENTS WITH MEDICARE COVERAGE REQUIRING HOME VNA SERVICES AND/OR HOSPICE SERVICES) PATIENT'S LOCATION: Jennifer Branch [address] [place] [id number] (home) Cell: No relevant phone numbers on file. Crystal Mounter's Name: self In discussion with the attending physician, it is certified that this patient is under their care and that they, or a Nurse Practitioner,Clinical Nurse specialist or Physician Service Line Bus Cleaner who is working directly with them, had [...] for managing ADL's. HOME HEALTH CARE AGENCY: [facility] PHONE: [phone] FAX: [phone] Start of care: 24-48 hours post discharge [...] Yu MD [address] / [place] [address] All VNA agencies which cover the area of patient's residence have been reviewed, either verbally christo writing, and patient/family have chosen the home health care agency noted Questions: Agency name and contact information: [facility] Patient location post discharge: [facility] What services are requested: Registered Nurse Start [...] Diabetic Supplies, Miscellan. Misc Form faxed to [employer] for pump supplies. Quantity: 100 each Refills: [...] For any problems or questions please call [phone] BREONNA Hou, outcomes specialist Nurse Clinician For issues on weeknights after 5pm and weekends please call [phone] and ask for the Vascular Fellow data migration consultant. documented in this encounter Discharge Instructions * Patient Instructions* Nathaly Victor, GARMENT LINER - 02/22/2019 7:43 AM EST Patient Instructions [...] For any problems or questions please call [phone] BREONNA Hou, outcomes specialist Nurse Clinician For issues on weeknights after 5pm and weekends please call [phone] and ask for the Vascular Fellow data migration consultant. documented in this encounter Medications at Time [...] TWICE A DAY 98 07/26/2016 Diabetic Supplies, [employer]. Misc Form faxed to [employer] for pump supplies. 100 each 12 03/23/2015 [...] to follow up. D/c summary faxed to [facility] * Servando Nolan MD - 03/01/2019 11:03 [...] this morning -Vac change at bedside Anticoagulation: [facility] DVT Prophylaxis Antiplatelet: SANJIV Nolan MD 03/01/2019 Pager: [phone] * Eva Gomes RN - 03/01/2019 10:39 AM EST The patient/sales and merchandising representative has been provided a list of Home Health Agencies/DME vendors which servetheir preferred geographic area. A letter describing our affiliations was reviewed with them and they were educated about their right to choose where referrals are placed. Patient requests referral to: [facility] Expected date of discharge: 03/01. Referral routed to the [employer] Financial Developer for matching with agency/vendor and to provide any required information. * Arturo Castro - 03/01/2019 3:54 AM EST Respiratory Therapy NIV Note NIV Settings: NIV Mode: CPAP PEEP/CPAP (cm H2O): 12 cm H20 NIV Measurements: Resp: 16 Mve: 7 Leak (L/min): 34 L/min Vte: 427 SpO2: 95 % Laboratory: Lab Results Component Value Date/Time PHART 7.35 02/04/2019 03:26 PM [id number] 39 02/04/2019 03:26 PM PO2ART 82 (L) 02/04/2019 03:26 PM [id number] 21.3 02/04/2019 03:26 PM BEART -4.6 (L) [...] up while inpatient MARY CHUA Beeper #: [phone] * Nathaly Victor APRN - 02/28/2019 7:09 [...] mazariegos -vac change tomorrow at bedside Anticoagulation: [facility] DVT Prophylaxis Antiplatelet: ASA Nathaly Victor APRN 02/28/2019 Pager: [phone] * NeerajrArturo - 02/28/2019 4:06 AM EST Respiratory Therapy NIV Note NIV Settings: HOME CPAP NIV Mode: CPAP PEEP/CPAP (cm H2O): 12 cm H20 NIV Measurements: Resp: 16 Mve: 7 Leak (L/min): 34 L/min Vte: 427 SpO2: 96 % Laboratory: Lab Results Component Value Date/Time PHART 7.35 02/04/2019 03:26 PM [id number] 39 02/04/2019 03:26 PM PO2ART 82 (L) 02/04/2019 03:26 PM [id number] 21.3 02/04/2019 03:26 PM BEART -4.6 (L) [...] within reach. Will continue to monitor. Raj aSldana RN * Haley Duenas RN - 02/27/2019 [...] Prophylaxis Antiplatelet: SANJIV Nolan MD 02/27/2019 Pager: [phone] * Eva Gomes RN - 02/26/2019 10:19 [...] VAC Therapy Insurance auth faxed back to [facility]. Ready for last picker from distribution on Monday. [facility] ordered for wound vac changes. Confirmed availability with Angelina from [facility]. . Care Management will continue to monitor progress, follow for continuity of care, and assist with discharge planning. Rn Cardiac: Eva Gomes Pager [phone] * Nathaly Victor APRN - 02/26/2019 7:52 [...] well perfused ?? Labs: Recent Labs 02/26/1944202/25/1933302/24/19 035 WBC 6.8 6.5 6.5 HGB 10.9* 10.4* 10.6* HCT 34.1* 33.3* 33.9* PLATELET 311 322 316 Recent Labs 02/26/1944202/25/19 03302/24/19 0352 NA 139 140 141 K 4.6 [...] Prophylaxis Antiplatelet: SANJIV Victor APRN 02/26/2019 Pager: [phone] * Brielle Solano RN - 02/25/2019 1:28 [...] patent goes home with vac. The patient/sales and merchandising representative has been provided a list of Home Health Agencies/DME vendors which servetheir preferred geographic area. A letter describing our affiliations was reviewed with them and they were educated about their right to choose where referrals are placed. Patient requests referral to : [facility] for wound vac [facility] Expected date of discharge: 1-2 days. Referral routed to the [employer] Developer for matching with agency/vendor and to provide any required information. [employer] Management will continue to monitor progress, follow for continuity of care, and assist with discharge planning. Rn Cardiac: Eva Gomes Pager [phone] * Nathaly Victor APRN - 02/25/2019 11:04 [...] diet (Give Meds) for OR today. Anticoagulation: [facility] DVT Prophylaxis Antiplatelet: ASA Nathaly Victor APRN 02/25/2019 Pager: [phone] * Nathaly Victor APRN - 02/25/2019 7:09 [...] diet (Give Meds) for OR today. Anticoagulation: [facility] DVT Prophylaxis Antiplatelet: SANJIV Victor APRN 02/25/2019 Pager: [phone] * Tamiko De La O, RN - [...] Antiplatelet: ASA Servando Nolan MD 02/23/2019 Pager: [phone] * Servando Nolan MD - 02/23/2019 11:58 [...] Prophylaxis Antiplatelet: SANJIV Nolan MD 02/23/2019 Pager: [phone] * Vinay Celeste RN - 02/22/2019 5:42 [...] up cultures -to OR today -NPO Anticoagulation: [facility] DVT Prophylaxis Antiplatelet: SANJIV Victor APRN 02/22/2019 Pager: [phone] * Jessica Maria RCP - 02/22/2019 3:41 [...] Prophylaxis Antiplatelet: SANJIV Victor APRN 02/21/2019 Pager: [phone] * Clinton Pierre RRT - 02/21/2019 12:22 [...] hospital and thus didnot bring extra. Vascular leadership intern Dr. Marni mckeon. 1999 Dr Grider to [...] file Gets together: Not on file Attends oriental orthodox service: Not on file Active member of [...] Diabetic Supplies, Miscellan. Misc Form faxed to [employer] for pump supplies. 100 each 12 ??? [...] MD, MS Vascular surgery fellow Service pager [phone] documented in this encounter Miscellaneous Notes * [...] Appropriate) 02/28/19 1527 Interdisciplinary Rounds/Family Conf Participants patient;family;nursing;showcase trimmer * Plan of Care - Hilton Montez, [...] Appropriate) 02/25/19 1753 Interdisciplinary Rounds/Family Conf Participants showcase trimmer;physical therapy;physician;nursing Problem: Skin Integrity Impairment, Risk/Actual (Adult) [...] Jensen MD - 02/27/2019 6:20 PM EST [facility] Operative Note Patient Name: Jennifer Branch : [id number] MR#: [id number] Case Date: 02/27/2019 Surgeon: Surgeon(s) and Role: [...] during ADLs ?? Surveillance [continuous indirect monitoring]:?VINCE aM at bedside, hourly rounding, patient instructed to [...] Appropriate) 02/25/19 1753 Interdisciplinary Rounds/Family Conf Participants showcase trimmer;physical therapy;physician;nursing Problem: Skin Integrity Impairment, Risk/Actual (Adult) [...] sign off. Ayo Carbone PT, DPT Pager [phone] Inpatient Rehabilitation * Plan of Care - Nancy Medellin OT - 02/26/2019 10:55 AM EST Occupational Therapy Evaluation Patient profile: Jennifer rBanch is a 58 y.o. female admitted on [...] *) performed by Jaxon Fontaine MD at [facility] MAIN OR ??? PRO BRONCHOSCOPY, DIAGNOSTIC N/A 06/21/2018 BRONCHOSCOPY, DIAGNOSTIC (WRVU 2.78) performed by César Escobar MD at [facility] MAIN OR ? ? PRO DEBRIDEMENT SUBCUTANEOUS TISSUE 20 SQCM/< Right 02/22/2019 DEBRIDEMENT SKIN AND SUBCU, LOWER EXTREMITY (WRVU 1.01) [facility] ? ? PRO DEBRIDEMENT SUBCUTANEOUS TISSUE 20 SQCM/< Right 02/25/2019 DEBRIDEMENT SKIN AND SUBCU, LOWER EXTREMITY (WRVU 1.01) performed by Jaxon Fontaine MD at [facility] EMMETT ? ? PRO EDG FLEXIBLE TRANSORAL ABLATE TUMOR POLYP/LESION W/DILATION & WIRE N/A 06/22/2016 EGD, TRANSORAL; WITH ABLATION OF TUMOR(S), POLYP(S), OR OTHER LESION(S) (WRVU 4.26) performed by Christos Donald MD at [facility] ENDOSCOPY ??? PRO INJECT NERV BLCK, INTERCOST, MULTPL Right 06/21/2018 NERVE BLOCK, INTERCOSTAL NERVE, MULTIPLE (WRVU 1.68) performed by [facility] ??? PRO REOPERATION, BYPASS GRAFT Right 02/04/2019 @RE-OP FOR RE-DO LOWER EXTREMITY BYPASS GRAFT, >1 MONTH P\ ORIGINAL SURGERY, ADD-ON CODE (WRVU 3.08) performed by Jaxon Fontaine MD at [facility] MAIN OR ??? PRO THORACOSCOPY WITH THERAPEUTIC WEDGE RESECTION INITIAL UNILAT Right 06/21/2018 @THORACOSCOPY, SURG; W/THERAPEUTIC WEDGE RESECTION, INIT UNILATERAL (WRVU 14.5) performed by César Escobar MD at [facility] MAIN OR ??? PRO THROMBOENDARTECTMY FEMORAL COMMON Right 02/04/2019 @ENDARTERECTOMY, COMMON FEMORAL W OR W/O PATCH GRAFT (WRVU 15.31) performed by Jaxon Fontaine MD [facility] MAIN OR ??? PRO THROMBOENDARTECTMY FEMORAL DEEP Right 02/04/2019 @ENDARTERECTOMY, PROFUNDAPLASTY, DEEP, PROFUNDA FEMORIS W OR W/O PATCH GRAFT (WRVU 18.58) performedby Jaxon Fontaine MD at [facility] MAIN OR ??? PRO TX EXTENSIVE RETINOPATHY, PHOTOCOAGULATION Left 2017 PRP OS - [place], [place] ??? PRO UPPER GI ENDOSCOPY, BIOPSY N/A 10/24/2016 UPPER GASTROINTESTINAL ENDOSCOPY,WITH BIOPSY SINGLE OR MULTIPLE (WRVU 2.49) performed by Agapito Parmar MD at [facility] ENDOSCOPY ??? PRO UPPER GI ENDOSCOPY, DIAGNOSTIC N/A 06/22/2016 EGD, UPPER GI ENDOSCOPY performed by Christos Donald MD at [facility] ENDOSCOPY ??? RETINAL LASER SURGERY [...] SFA stents ??? VASCULAR SURGERY 1009 Right SHIPFITTER-AK pop vein graft ??? VS ARTERIOGRAM LOWER EXTREMITY VASCULAR SURGERY 04/27/2018 VS Arteriogram Lower Extremity Vascular Surgery 04/27/2018 Jaxon Fontaine MD [facility] INTERVENTIONL RAD ??? YAG CAPSULOTOMY [...] well. She has had no falls at [facility]. Precautions/Special Considerations: insulin pump, groin incision, [...] and measurable assessment of functional outcome. Pager: [phone] NANCY MEDELLIN OT 02/26/2019 Occupational Therapy Rehabilitation [...] Appropriate) 02/25/19 1753 Interdisciplinary Rounds/Family Conf Participants showcase trimmer;physical therapy;physician;nursing Problem: Skin Integrity Impairment, Risk/Actual (Adult) [...] (Interventions Implemented as Appropriate) 02/25/19 0749 02/25/19 7026 Coping/Psychosocial Plan Of Care Reviewed With patient [...] Wall MD - 02/25/2019 12:28 PM EST [facility] Operative Note Patient Name: Jennifer Branch : [id number] MR#: [id number] Case Date: 02/25/2019 Surgeon: Surgeon(s) and Role: [...] Skin Interventions Skin Protection -- adhesive use limited;mgfa-xu-wxnwop areas padded;transparent dressing maintained;tubing/devices free from skin [...] care. Outcome: Ongoing (Interventions Implemented as Appropriate) 11/18/19 0353 Skin Integrity Impairment, Risk/Actual (Adult) Skin [...] Review Outcome: Ongoing (Interventions Implemented as Appropriate) 11/163302/23/191929 Coping/Psychosocial Plan Of Care Reviewed With -- [...] Fontaine MD - 02/22/2019 4:03 PM EST [facility] Operative Note Patient Name: Jennifer Branch : [id number] MR#: [id number] Case Date: 02/22/19 Surgeon: Surgeon(s) and Role: [...] Admission: ??? Groin hematoma Patient was at [facility] mid January. Patient receiving hospital care under IPI- SDP Admission (IP) status. Admission order reviewed. 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 Waiting for report from vascular. occupational therapy co director/National Park Ranger will continue to follow patient???s progress and remain available if situation changes for coordination of care, psychosocial support and/or discharge planning. Eva Gomes RN Pager [phone] * Consult Note - Loretta Barkley RPH - 02/21/2019 9:27 AM EST Clinical Pharmacist Note - VancFD Jennifer Branch [id number] 1960 Jennifer Branch is a 58 y.o. [...] have. Alternately,during off-hours (9p-7a) you may call [phone] to contact a pharmacist. Loretta Barkley RPH [...] cathed at 0330 for 800. D/t void [phone]. CPAP on for MANISH. Pt using own [...] Quijano MD - 02/20/2019 5:31 PM EST [facility] Operative Note Patient Name: Jennifer Branch : [id number] MR#: [id number] Case Date: 02/20/2019 Surgeon: Surgeon(s) and Role: [...] PM EDT Tech [place] [address] Marguerite Macias 12/19/2023 3:00 PM EDT Office Visit [place] [phone] Gardenia Golden APRN [facility] [place] [address] 01/29/2024 1:[address] [place] [address] César Escobar MD [facility] [place] [address] 01/29/2024 2:30 PM EDT Office [place] [phone] César Escobar MD [facility] [place] [address] documented as of this encounter Procedures Procedure [...] AUTO DIFF Routine 02/26/2019 4:43 AM EST BMP W/FASTING GLUCOSE Routine [...] EST Unlisted Procedure Hemic Or Lymphatic System (27637) 02/20/2019 4:26 PM EST Hematoma EXPLORATION GROIN W\DRAIN & DEBRIDE LYMPHOCELE Routine 02/20/2019 1:34 PM EST Hematoma documented in this encounter Results * Arterial Duplex Leg, Unil (04/01/2019 1:05 PM EST) VB Text Report Department: Vascular Surgery Lab Patient: [id number] (JENNIFER BRANCH) CPT: 13553 ICD10: I73.9 Referring Physician: NATHALY VICTOR ?? [...] VASCUBASE 04/01/2019 1:05 PM EST Nathaly Victor GARMENT LINER VASCULAR ORDERABLE S VASCUBASE * SHEFALI, legs, multiple levels (04/01/2019 1:05 PM EST) VB Text Report Department: Vascular Surgery Lab Patient: [id number] (JENNIFER BRANCH) CPT: 27713 ICD10: I73.9 Referring Physician: NATHALY VICTOR ?? [...] Dorsalis Pedis (Ankle) Artery ?102 ? 0.56 ??Comanche-Biphasic ? Posterior Tibial (Ankle) Artery ??109 ? 0.60 ??Comanche-Biphasic ? Great Toe ?65 ? 0.36 ?? [...] clinic following her exam. Electronically Signed by: AJXON FONTAINE MD on 2019-04-01 02:19:02 PM VASCUBASE VB Text Report End of Report VASCUBASE 04/01/2019 1:05 PM EST Nathaly Victor APRN VASCULAR ORDERABLE S VASCUBASE * (ABNORMAL) POCT Glucose (03/01/2019 11:31 AM EST) Glucose, POC 304(H) 65 - 199 mg/dL [facility] Comment: Supplemental ranges: <140 mg/dL before meals <180 mg/dL all other times of the day Blood specimen (specimen) 03/01/2019 11:31 AM EST 03/01/2019 11:31 AM EST Jaxon Fontaine MD POINT OF CARE TEST O RDERABLES Performing Organization Address [facility] de Phone Number [facility] [place] [address] * POCT Glucose (03/01/2019 8:27 AM EST) Glucose, POC 167 65 - 199 mg/dL [facility] Comment: Supplemental ranges: <140 mg/dL before meals <180 mg/dL all other times of the day Blood specimen (specimen) 03/01/2019 8:27 AM EST 03/01/2019 8:27 AM EST Jaxon Fontaine MD POINT OF CARE TEST O RDERAJOHN Performing Organization Address [facility] Phone Number [facility] [place] [address] * POCT Glucose (03/01/2019 4:04 AM EST) Glucose, POC 145 65 - 199 mg/dL [facility] Comment: Supplemental ranges: <140 mg/dL before meals <180 mg/dL all other times of the day Blood specimen (specimen) 03/01/2019 4:04 AM EST 03/01/2019 4:04 AM EST Jaxon Fontaine MD POINT OF CARE TEST O RDERABLES Performing Organization Address [facility] de Phone Number [facility] [place] [address] * Differential, Automated (03/01/2019 4:04 AM EST) Neutrophil % 55.7 % [facility] Neutrophil Absolute 4.99 1.70 - 6.10 x10(3)/[facility] Lymph % 32.0 % [facility] Lymphocytes Abs 2.9 0.9 - 3.2 x10(3)/[facility]ATORY Monocyte % 7.3 % [facility] Monocyte Abs 0.6 0.3 - 0.9 x10(3)/[facility] Eos % 4.1 % [facility] Eosinophils Abs 0.4 0.0 - 0.4 x10(3)/[facility] Basophil % 0.7 % [facility] Baso Absolute 0.1 0.0 - 0.1 x10(3)/[facility] Immature Gran % 0.20 % [facility] Comment: Immature granulocytes(IG's)percentage and absolute count will include metamyelocytes, myelocytes, and promyelocytes. Blood smears from CBCs yielding IG's will be scanned manually for concordance. If this scan disagrees with the automated IG or if promyelocytes are noted, a manual differential will be performed. Immature Gran Absolute 0.02 0.00 - 0.04 x10(3)/[facility] Blood specimen (specimen) 03/01/2019 4:04 AM EST 03/01/2019 4:19 AM EST Narrative Resulting Agency Comment Spec In Lab Emeli Wall MD HEMATOLOGY ORDERAB LES [facility] [place] [address] * (ABNORMAL) Hemogram (03/01/2019 4:04 AM EST) White Blood Cell 9.0 4.0 - 9.5 x10(3)/mc L [facility] Red Blood Cell 3.48(L) 4.00 - 5.21 x10(6)/mc L [facility] Hemoglobin 10.1(L) 11.7 - 15.5 gm/dL [facility] Hematocrit 33.1(L) 35.7 - 45.8 % [facility] Mean Cell Volume 95.1(H) 82.6 - 94.4 fL [facility] Mean Cell Hemoglobin 29.0 27.1 - 32.0 pg [facility] Mean Cell Hemoglobin Concentration 30.5(L) 31.7 - 35.0 gm/dL [facility] Platelet 276 145 - 357 x10(3)/mc L [facility] RDW Standard Deviation 47.8(H) 37.0 - 46.0 fL [facility] RDW coefficient of variation 13.6 11.5 - 14.1 % [facility] Mean Platelet Volume 10.5 7.6 - 12.9 fL [facility] NRBC% auto 0.0 % [facility] NRBC Absolute 0.000 0.000 - 0.000 x10(3)/mc L [facility] Blood specimen (specimen) 03/01/2019 4:04 AM EST 03/01/2019 4:19 AM EST Narrative Resulting Agency Comment Spec In Lab Emeli Wall MD HEMATOLOGY ORDERAB LES Performing Organization Address City/State/[facility] Co de Phone Number [facility] [place] [address] * (ABNORMAL) BMP w/fasting Glucose (03/01/2019 4:04 AM EST) Glucose Fasting 145(H) 65 - 99 mg/dL [facility] Comment: ?Fasting* Glucose Interpretive [...] of Diabetes Mellitus, Position Statement from the [place] [employer]. ??Diabetes Care, Volume 33, Supplement 1, Apr 2009 Blood Urea Nitrogen 38(H) 8 - 18 mg/dL [facility] Creatinine 1.83(H) 0.70 - 1.20 mg/dL [facility] Sodium 140 135 - 145 mmol/L [facility] Potassium 4.8 3.5 - 5.0 mmol/L [facility] Comment: Please note: ??Patients with WBC >100,000 may have falsely elevated Potassium levels. ??For accurate Potassium quantification in these patients send serum separator tube (gold top) for subsequent determinations. ??Contact the Clinical Chemistry Laboratory if there are any questions. Chloride 104 98 - 107 mmol/L [facility] Carbon Dioxide 24 22 - 31 mmol/L [facility] Anion Gap 12 5 - 15 mmol/L [facility] Calcium 9.1 8.5 - 10.5 mg/dL [facility] Est Glomerular Filtration Rate 29(L) >=60 mL/min/1. 73 m?? [facility] Comment: The eGFR was calculated using the CKD-EPI equation. As with all creatinine based estimates of kidney function, eGFR values calculated with the CKD-EPI equation are not accurate in patients with acute kidney failure, extremes of body mass or the acutely ill. [email or web address] eGFR 34(L) >=60 mL/min/1. 73 m?? [facility] Comment: The eGFR was calculated using the CKD-EPI equation. As with all creatinine based estimates of kidney function, eGFR values calculated with the CKD-EPI equation are not accurate in patients with acute kidney failure, extremes of body mass or the acutely ill. [email or web address] Blood specimen (specimen) 03/01/2019 4:04 AM EST 03/01/2019 4:19 AM EST Narrative Resulting Agency Comment Spec In Lab Jaxon Fontaine MD CHEMISTRY ORDERABLES [facility] [place] [address] * POCT Glucose (03/01/2019 12:12 AM EST) Glucose, POC 132 65 - 199 mg/dL [facility] Comment: Supplemental ranges: <140 mg/dL before meals <180 mg/dL all other times of the day Blood specimen (specimen) 03/01/2019 12:12 AM EST 03/01/2019 12:12 AM EST Jaxon Fontaine MD POINT OF CARE TEST O RDERABLES Performing Organization Address City/[facility] Co de Phone Number [facility] [place] [address] * POCT Glucose (02/28/2019 8:01 PM EST) Glucose, POC 152 65 - 199 mg/dL [facility] Comment: Supplemental ranges: <140 mg/dL before meals <180 mg/dL all other times of the day Blood specimen (specimen) 02/28/2019 8:01 PM EST 02/28/2019 8:01 PM EST Jaxon Fontaine MD POINT OF CARE TEST O RDERABLES Performing Organization Address [facility] Co de Phone Number [facility] [place] [address] * Differential, Automated (02/28/2019 3:06 AM EST) Neutrophil % 51.2 % [facility] Neutrophil Absolute 3.90 1.70 - 6.10 x10(3)/[facility] Lymph % 37.0 % [facility] Lymphocytes Abs 2.8 0.9 - 3.2 x10(3)/[facility] Monocyte % 7.4 % [facility] Monocyte Abs 0.6 0.3 - 0.9 x10(3)/[facility] Eos % 3.3 % [facility] Eosinophils Abs 0.2 0.0 - 0.4 x10(3)/[facility] Basophil % 0.8 % [facility] Baso Absolute 0.1 0.0 - 0.1 x10(3)/[facility] Immature Gran % 0.30 % [facility] Comment: Immature granulocytes(IG's)percentage and absolute count will include metamyelocytes, myelocytes, and promyelocytes. Blood smears from CBCs yielding IG's will be scanned manually for concordance. If this scan disagrees with the automated IG or if promyelocytes are noted, a manual differential will be performed. Immature Gran Absolute 0.02 0.00 - 0.04 x10(3)/[facility] Blood specimen (specimen) 02/28/2019 3:06 AM EST 02/28/2019 3:25 AM EST Narrative Resulting Agency Comment Spec In Lab Emeli Wall MD HEMATOLOGY ORDERAB LES [facility] [place] [address] * (ABNORMAL) Hemogram (02/28/2019 3:06 AM EST) White Blood Cell 7.6 4.0 - 9.5 x10(3)/[facility] Red Blood Cell 3.46(L) 4.00 - 5.21 x10(6)/ L [facility] Hemoglobin 10.0(L) 11.7 - 15.5 gm/dL [facility] Hematocrit 32.5(L) 35.7 - 45.8 % [facility] Mean Cell Volume 93.9 82.6 - 94.4 fL [facility] Mean Cell Hemoglobin 28.9 27.1 - 32.0 pg [facility] Mean Cell Hemoglobin Concentration 30.8(L) 31.7 - 35.0 gm/dL [facility] Platelet 281 145 - 357 x10(3)/ L [facility] RDW Standard Deviation 46.4(H) 37.0 - 46.0 fL [facility] RDW coefficient of variation 13.5 11.5 - 14.1 % [facility] Mean Platelet Volume 10.6 7.6 - 12.9 fL [facility] NRBC% auto 0.0 % [facility] NRBC Absolute 0.000 0.000 - 0.000 x10(3)/mc L [facility] Blood specimen (specimen) 02/28/2019 3:06 AM EST 02/28/2019 3:25 AM EST Narrative Resulting Agency Comment Spec In Lab Emeli Wall MD HEMATOLOGY ORDERAB LES Performing Organization Address City/State/[facility] Co de Phone Number [facility] [place] [address] * (ABNORMAL) BMP w/fasting Glucose (02/28/2019 3:06 AM EST) Glucose Fasting 245(H) 65 - 99 mg/dL [facility] Comment: ?Fasting* Glucose Interpretive [...] of Diabetes Mellitus, Position Statement from the [employer]. ??Diabetes Care, Volume 33, Supplement 1, Apr 2009 Blood Urea Nitrogen 42(H) 8 - 18 mg/dL [facility] Creatinine 2.20(H) 0.70 - 1.20 mg/dL [facility] Sodium 135 135 - 145 mmol/L [facility] Potassium 4.6 3.5 - 5.0 mmol/L [facility] Comment: Please note: ??Patients with WBC >100,000 may have falsely elevated Potassium levels. ??For accurate Potassium quantification in these patients send serum separator tube (gold top) for subsequent determinations. ??Contact the Clinical Chemistry Laboratory if there are any questions. Chloride 100 98 - 107 mmol/L [facility] Carbon Dioxide 23 22 - 31 mmol/L [facility] Anion Gap 12 5 - 15 mmol/L [facility] Calcium 8.9 8.5 - 10.5 mg/dL [facility] Est Glomerular Filtration Rate 24(L) >=60 mL/min/1. 73 m?? [facility] Comment: The eGFR was calculated using the CKD-EPI equation. As with all creatinine based estimates of kidney function, eGFR values calculated with the CKD-EPI equation are not accurate in patients with acute kidney failure, extremes of body mass or the acutely ill. [email or web address] eGFR 27(L) >=60 mL/min/1. 73 m?? [facility] Comment: The eGFR was calculated using the CKD-EPI equation. As with all creatinine based estimates of kidney function, eGFR values calculated with the CKD-EPI equation are not accurate in patients with acute kidney failure, extremes of body mass or the acutely ill. [email or web address] Blood specimen (specimen) 02/28/2019 3:06 AM EST 02/28/2019 3:25 AM EST Narrative Resulting Agency Comment Spec In Lab Jaxon Fontaine MD CHEMISTRY ORDERABLES [facility] [place] [address] * Differential, Automated (02/27/2019 4:27 AM EST) Neutrophil % 45.3 % [facility] Neutrophil Absolute 3.00 1.70 - 6.10 x10(3)/[facility] Lymph % 42.1 % [facility] Lymphocytes Abs 2.8 0.9 - 3.2 x10(3)/[facility] Monocyte % 7.0 % [facility] Monocyte Abs 0.5 0.3 - 0.9 x10(3)/[facility] Eos % 4.2 % [facility] Eosinophils Abs 0.3 0.0 - 0.4 x10(3)/[facility] Basophil % 1.1 % [facility] Baso Absolute 0.1 0.0 - 0.1 x10(3)/[facility] Immature Gran % 0.30 % [facility] Comment: Immature granulocytes(IG's)percentage and absolute count will include metamyelocytes, myelocytes, and promyelocytes. Blood smears from CBCs yielding IG's will be scanned manually for concordance. If this scan disagrees with the automated IG or if promyelocytes are noted, a manual differential will be performed. Immature Gran Absolute 0.02 0.00 - 0.04 x10(3)/[facility] Blood specimen (specimen) 02/27/2019 4:27 AM EST 02/27/2019 4:57 AM EST Narrative Resulting Agency Comment Spec In Lab Emeli Wall MD HEMATOLOGY ORDERAB LES Performing Organization Address City/State/[facility] Co de Phone Number [facility] [place] [address] * (ABNORMAL) Hemogram (02/27/2019 4:27 AM EST) White Blood Cell 6.6 4.0 - 9.5 x10(3)/mc L [facility] Red Blood Cell 3.52(L) 4.00 - 5.21 x10(6)/mc L [facility] Hemoglobin 10.3(L) 11.7 - 15.5 gm/dL [facility] Hematocrit 32.4(L) 35.7 - 45.8 % [facility] Mean Cell Volume 92.0 82.6 - 94.4 fL [facility] Mean Cell Hemoglobin 29.3 27.1 - 32.0 pg [facility] Mean Cell Hemoglobin Concentration 31.8 31.7 - 35.0 gm/dL [facility] Platelet 269 145 - 357 x10(3)/mc L [facility] RDW Standard Deviation 45.5 37.0 - 46.0 fL [facility] RDW coefficient of variation 13.4 11.5 - 14.1 % [facility] Mean Platelet Volume 10.2 7.6 - 12.9 fL [facility] NRBC% auto 0.0 % [facility] NRBC Absolute 0.000 0.000 - 0.000 x10(3)/mc L [facility] Blood specimen (specimen) 02/27/2019 4:27 AM EST 02/27/2019 4:57 AM EST Narrative Resulting Agency Comment Spec In Lab Emeli Wall MD HEMATOLOGY ORDERAB LES Performing Organization Address City/State/[facility] Co de Phone Number [facility] [place] [address] * (ABNORMAL) BMP w/fasting Glucose (02/27/2019 4:27 AM EST) Glucose Fasting 191(H) 65 - 99 mg/dL [facility] Comment: ?Fasting* Glucose Interpretive [...] of Diabetes Mellitus, Position Statement from the [place]. ??Diabetes Care, Volume 33, Supplement 1, Apr 2009 Blood Urea Nitrogen 34(H) 8 - 18 mg/dL [facility] Creatinine 1.94(H) 0.70 - 1.20 mg/dL [facility] Sodium 138 135 - 145 mmol/L [facility] Potassium 5.2(H) 3.5 - 5.0 mmol/L [facility] Comment: Please note: ??Patients with WBC >100,000 may have falsely elevated Potassium levels. ??For accurate Potassium quantification in these patients send serum separator tube (gold top) for subsequent determinations. ??Contact the Clinical Chemistry Laboratory if there are any questions. Chloride 102 98 - 107 mmol/L [facility] Carbon Dioxide 25 22 - 31 mmol/L [facility] Anion Gap 11 5 - 15 mmol/L [facility] Calcium 9.0 8.5 - 10.5 mg/dL [facility] Est Glomerular Filtration Rate 27(L) >=60 mL/min/1. 73 m?? [facility] Comment: The eGFR was calculated using the CKD-EPI equation. As with all creatinine based estimates of kidney function, eGFR values calculated with the CKD-EPI equation are not accurate in patients with acute kidney failure, extremes of body mass or the acutely ill. [email or web address] eGFR 32(L) >=60 mL/min/1. 73 m?? [facility] Comment: The eGFR was calculated using the CKD-EPI equation. As with all creatinine based estimates of kidney function, eGFR values calculated with the CKD-EPI equation are not accurate in patients with acute kidney failure, extremes of body mass or the acutely ill. [email or web address] Blood specimen (specimen) 02/27/2019 4:27 AM EST 02/27/2019 4:57 AM EST Narrative Resulting Agency Comment Spec In Lab Jaxon Fontaine MD CHEMISTRY ORDERABLES [facility] [place] [address] * Differential, Automated (02/26/2019 4:43 AM EST) Pathologist [facility] Neutrophil % 47.9 % [facility] Neutrophil Absolute 3.27 1.70 - 6.10 x10(3)/[facility] Lymph % 40.3 % [facility] Lymphocytes Abs 2.8 0.9 - 3.2 x10(3)/[facility] Monocyte % 6.2 % [facility] Monocyte Abs 0.4 0.3 - 0.9 x10(3)/[facility] Eos % 4.3 % [facility] Eosinophils Abs 0.3 0.0 - 0.4 x10(3)/[facility] Basophil % 1.0 % [facility] Baso Absolute 0.1 0.0 - 0.1 x10(3)/[facility] Immature Gran % 0.30 % [facility] Comment: Immature granulocytes(IG's)percentage and absolute count will include metamyelocytes, myelocytes, and promyelocytes. Blood smears from CBCs yielding IG's will be scanned manually for concordance. If this scan disagrees with the automated IG or if promyelocytes are noted, a manual differential will be performed. Immature Gran Absolute 0.02 0.00 - 0.04 x10(3)/[facility] Blood specimen (specimen) 02/26/2019 4:43 AM EST 02/26/2019 5:06 AM EST Narrative Resulting Agency Comment Spec In Lab Emeli Wall MD HEMATOLOGY ORDERAB LES [facility] [place] [address] * (ABNORMAL) Hemogram (02/26/2019 4:43 AM EST) Pathologist [facility] White Blood Cell 6.8 4.0 - 9.5 x10(3)/mc L [facility] Red Blood Cell 3.68(L) 4.00 - 5.21 x10(6)/mc L [facility] Hemoglobin 10.9(L) 11.7 - 15.5 gm/dL [facility] Hematocrit 34.1(L) 35.7 - 45.8 % [facility] Mean Cell Volume 92.7 82.6 - 94.4 fL [facility] Mean Cell Hemoglobin 29.6 27.1 - 32.0 pg [facility] Mean Cell Hemoglobin Concentration 32.0 31.7 - 35.0 gm/dL [facility] Platelet 311 145 - 357 x10(3)/mc L [facility] RDW Standard Deviation 44.8 37.0 - 46.0 [facility] RDW coefficient of variation 13.2 11.5 - 14.1 % [facility] Mean Platelet Volume 10.1 7.6 - 12.9 fL [facility] NRBC% auto 0.0 % [facility] NRBC Absolute 0.000 0.000 - 0.000 x10(3)/ L [facility] Blood specimen (specimen) 02/26/2019 4:43 AM EST 02/26/2019 5:06 AM EST Narrative Resulting Agency Comment Spec In Lab Emeli Wall MD HEMATOLOGY ORDERAB LES [facility] [place] [address] * (ABNORMAL) BMP w/fasting Glucose (02/26/2019 4:43 AM EST) Glucose Fasting 74 65 - 99 mg/dL [facility] Comment: ?Fasting* Glucose Interpretive [...] of Diabetes Mellitus, Position Statement from the [employer]. ??Diabetes Care, Volume 33, Supplement 1, Apr 2009 Blood Urea Nitrogen 22(H) 8 - 18 mg/dL [facility] Creatinine 1.44(H) 0.70 - 1.20 mg/dL [facility] Sodium 139 135 - 145 mmol/L [facility] Potassium 4.6 3.5 - 5.0 mmol/L [facility] Comment: Please note: ??Patients with WBC >100,000 may have falsely elevated Potassium levels. ??For accurate Potassium quantification in these patients send serum separator tube (gold top) for subsequent determinations. ??Contact the Clinical Chemistry Laboratory if there are any questions. Chloride 103 98 - 107 mmol/L [facility] Carbon Dioxide 22 22 - 31 mmol/L [facility] Anion Gap 14 5 - 15 mmol/L [facility] Calcium 9.0 8.5 - 10.5 mg/dL [facility] Est Glomerular Filtration Rate 39(L) >=60 mL/min/1. 73 m?? [facility] Comment: The eGFR was calculated using the CKD-EPI equation. As with all creatinine based estimates of kidney function, eGFR values calculated with the CKD-EPI equation are not accurate in patients with acute kidney failure, extremes of body mass or the acutely ill. [email or web address] eGFR 46(L) >=60 mL/min/1. 73 m?? [facility] Comment: The eGFR was calculated using the CKD-EPI equation. As with all creatinine based estimates of kidney function, eGFR values calculated with the CKD-EPI equation are not accurate in patients with acute kidney failure, extremes of body mass or the acutely ill. [email or web address] Blood specimen (specimen) 02/26/2019 4:43 AM EST 02/26/2019 5:06 AM EST Narrative Resulting Agency Comment Spec In Lab Jaxon Fontaine MD CHEMISTRY ORDERABLES Performing Organization Address City/[facility]/[place] [address] * Differential, Automated (02/25/2019 3:34 AM EST) Neutrophil % 46.3 % [facility] Neutrophil Absolute 3.02 1.70 - 6.10 x10(3)/[facility] Lymph % 39.2 % [facility] Lymphocytes Abs 2.6 0.9 - 3.2 x10(3)/[facility] Monocyte % 7.1 % [facility] Monocyte Abs 0.5 0.3 - 0.9 x10(3)/[facility] Eos % 6.1 % [facility] Eosinophils Abs 0.4 0.0 - 0.4 x10(3)/[facility] Basophil % 1.1 % [facility] Baso Absolute 0.1 0.0 - 0.1 x10(3)/[facility] Immature Gran % 0.20 % [facility] Comment: Immature granulocytes(IG's)percentage and absolute count will include metamyelocytes, myelocytes, and promyelocytes. Blood smears from CBCs yielding IG's will be scanned manually for concordance. If this scan disagrees with the automated IG or if promyelocytes are noted, a manual differential will be performed. Immature Gran Absolute 0.01 0.00 - 0.04 x10(3)/[facility] Blood specimen (specimen) 02/25/2019 3:34 AM EST 02/25/2019 3:59 AM EST Narrative Resulting Agency Comment Spec In Lab Servando Nolan MD HEMATOLOGY ORDERABLE S [facility] [place] [address] * (ABNORMAL) Hemogram (02/25/2019 3:34 AM EST) White Blood Cell 6.5 4.0 - 9.5 x10(3)/ L [facility] Red Blood Cell 3.55(L) 4.00 - 5.21 x10(6)/[facility] Hemoglobin 10.4(L) 11.7 - 15.5 gm/dL [facility] Hematocrit 33.3(L) 35.7 - 45.8 % [facility] Mean Cell Volume 93.8 82.6 - 94.4 fL [facility] Mean Cell Hemoglobin 29.3 27.1 - 32.0 pg [facility] Mean Cell Hemoglobin Concentration 31.2(L) 31.7 - 35.0 gm/dL [facility] Platelet 322 145 - 357 x10(3)/[facility] RDW Standard Deviation 45.0 37.0 - 46.0 [facility] RDW coefficient of variation 13.1 11.5 - 14.1 % [facility] Mean Platelet Volume 10.4 7.6 - 12.9 [facility] NRBC% auto 0.0 % [facility] NRBC Absolute 0.000 0.000 - 0.000 x10(3)/[facility] Blood specimen (specimen) 02/25/2019 3:34 AM EST 02/25/2019 3:59 AM EST Narrative Resulting Agency Comment Spec In Lab Servando Nolan MD HEMATOLOGY ORDERABLE S [facility] [place] [address] * (ABNORMAL) BMP w/fasting Glucose (02/25/2019 3:34 AM EST) Glucose Fasting 205(H) 65 - 99 mg/dL [facility] Comment: ?Fasting* Glucose Interpretive [...] of Diabetes Mellitus, Position Statement from the [employer]. ??Diabetes Care, Volume 33, Supplement 1, Apr 2009 Blood Urea Nitrogen 25(H) 8 - 18 mg/dL [facility] Creatinine 1.63(H) 0.70 - 1.20 mg/dL [facility] Sodium 140 135 - 145 mmol/L [facility] Potassium 4.7 3.5 - 5.0 mmol/L [facility] Comment: Please note: ??Patients with WBC >100,000 may have falsely elevated Potassium levels. ??For accurate Potassium quantification in these patients send serum separator tube (gold top) for subsequent determinations. ??Contact the Clinical Chemistry Laboratory if there are any questions. Chloride 105 98 - 107 mmol/L [facility] Carbon Dioxide 24 22 - 31 mmol/L [facility] Anion Gap 11 5 - 15 mmol/L [facility] Calcium 9.1 8.5 - 10.5 mg/dL [facility] Est Glomerular Filtration Rate 34(L) >=60 mL/min/1. 73 m?? [facility] Comment: The eGFR was calculated using the CKD-EPI equation. As with all creatinine based estimates of kidney function, eGFR values calculated with the CKD-EPI equation are not accurate in patients with acute kidney failure, extremes of body mass or the acutely ill. [email or web address] eGFR 39(L) >=60 mL/min/1. 73 m?? [facility] Comment: The eGFR was calculated using the CKD-EPI equation. As with all creatinine based estimates of kidney function, eGFR values calculated with the CKD-EPI equation are not accurate in patients with acute kidney failure, extremes of body mass or the acutely ill. [email or web address] Blood specimen (specimen) 02/25/2019 3:34 AM EST 02/25/2019 3:59 AM EST Narrative Resulting Agency Comment Spec In Lab Jaxon Fontaine MD CHEMISTRY ORDERABLES [facility] [place] [address] * Differential, Automated (02/24/2019 3:52 AM EST) Neutrophil % 40.8 % [facility] Neutrophil Absolute 2.66 1.70 - 6.10 x10(3)/[facility] Lymph % 44.1 % [facility] Lymphocytes Abs 2.9 0.9 - 3.2 x10(3)/[facility] Monocyte % 7.4 % [facility] Monocyte Abs 0.5 0.3 - 0.9 x10(3)/[facility] Eos % 6.6 % [facility] Eosinophils Abs 0.4 0.0 - 0.4 x10(3)/[facility] Basophil % 0.9 % [facility] Baso Absolute 0.1 0.0 - 0.1 x10(3)/[facility] Immature Gran % 0.20 % [facility] Comment: Immature granulocytes(IG's)percentage and absolute count will include metamyelocytes, myelocytes, and promyelocytes. Blood smears from CBCs yielding IG's will be scanned manually for concordance. If this scan disagrees with the automated IG or if promyelocytes are noted, a manual differential will be performed. Immature Gran Absolute 0.01 0.00 - 0.04 x10(3)/[facility] LABORATORY Blood specimen (specimen) 02/24/2019 3:52 AM EST 02/24/2019 4:25 AM EST Narrative Resulting Agency Comment Spec In Lab Servando Nolan MD HEMATOLOGY ORDERABLE S [facility] [place] [address] * (ABNORMAL) Hemogram (02/24/2019 3:52 AM EST) White Blood Cell 6.5 4.0 - 9.5 x10(3)/[facility] LABORATORY Red Blood Cell 3.58(L) 4.00 - 5.21 x10(6)/[facility] LABORATORY Hemoglobin 10.6(L) 11.7 - 15.5 gm/dL [facility] Hematocrit 33.9(L) 35.7 - 45.8 % [facility] Mean Cell Volume 94.7(H) 82.6 - 94.4 fL [facility] Mean Cell Hemoglobin 29.6 27.1 - 32.0 pg [facility] Mean Cell Hemoglobin Concentration 31.3(L) 31.7 - 35.0 gm/dL [facility] Platelet 316 145 - 357 x10(3)/[facility] LABORATORY RDW Standard Deviation 45.4 37.0 - 46.0 [facility] LABORATORY RDW coefficient of variation 13.2 11.5 - 14.1 % [facility] Mean Platelet Volume 10.3 7.6 - 12.9 fL [facility] NRBC% auto 0.0 % [facility] NRBC Absolute 0.000 0.000 - 0.000 x10(3)/[facility] LABORATORY Blood specimen (specimen) 02/24/2019 3:52 AM EST 02/24/2019 4:25 AM EST Narrative Resulting Agency Comment Spec In Lab Servando Nolan MD HEMATOLOGY ORDERABLE S [facility] [place] [address] * (ABNORMAL) BMP w/fasting Glucose (02/24/2019 3:52 AM EST) Glucose Fasting 133(H) 65 - 99 mg/dL [facility] Comment: ?Fasting* Glucose Interpretive [...] of Diabetes Mellitus, Position Statement from the [employer]. ??Diabetes Care, Volume 33, Supplement 1, Apr 2009 Blood Urea Nitrogen 21(H) 8 - 18 mg/dL [facility] Creatinine 1.69(H) 0.70 - 1.20 mg/dL [facility] Sodium 141 135 - 145 mmol/L [facility] Potassium 4.7 3.5 - 5.0 mmol/L [facility] Comment: Please note: ??Patients with WBC >100,000 may have falsely elevated Potassium levels. ??For accurate Potassium quantification in these patients send serum separator tube (gold top) for subsequent determinations. ??Contact the Clinical Chemistry Laboratory if there are any questions. Chloride 107 98 - 107 mmol/L [facility] Carbon Dioxide 23 22 - 31 mmol/L [facility] Anion Gap 11 5 - 15 mmol/L [facility] Calcium 8.9 8.5 - 10.5 mg/dL [facility] Est Glomerular Filtration Rate 32(L) >=60 mL/min/1. 73 m?? [facility] Comment: The eGFR was calculated using the CKD-EPI equation. As with all creatinine based estimates of kidney function, eGFR values calculated with the CKD-EPI equation are not accurate in patients with acute kidney failure, extremes of body mass or the acutely ill. [email or web address] eGFR 38(L) >=60 mL/min/1. 73 m?? [facility] Comment: The eGFR was calculated using the CKD-EPI equation. As with all creatinine based estimates of kidney function, eGFR values calculated with the CKD-EPI equation are not accurate in patients with acute kidney failure, extremes of body mass or the acutely ill. [email or web address] Blood specimen (specimen) 02/24/2019 3:52 AM EST 02/24/2019 4:25 AM EST Narrative Resulting Agency Comment Spec In Lab Jaxon Fontaine MD CHEMISTRY ORDERABLES Performing Organization Address City/[facility] Co de Phone Number [facility] [place] [address] * (ABNORMAL) POCT Glucose (02/23/2019 3:43 PM EST) Pathologist [facility] Glucose, POC 216(H) 65 - 199 mg/dL [facility] Comment: Supplemental ranges: <140 mg/dL before meals <180 mg/dL all other times of the day Blood specimen (specimen) 02/23/2019 3:43 PM EST 02/23/2019 3:43 PM EST Jaxon Fontaine MD POINT OF CARE TEST O RDERABLES Performing Organization Address City/[facility]/ZIP Co de Phone Number [facility] [place] [address] * Differential, Automated (02/23/2019 3:22 AM EST) Pathologist [facility] Neutrophil % 47.1 % [facility] Neutrophil Absolute 2.82 1.70 - 6.10 x10(3)/mcL [facility] Lymph % 37.5 % [facility] Lymphocytes Abs 2.2 0.9 - 3.2 x10(3)/[facility] LABORATORY Monocyte % 6.7 % [facility] Monocyte Abs 0.4 0.3 - 0.9 x10(3)/[facility] LABORATORY Eos % 7.0 % [facility] Eosinophils Abs 0.4 0.0 - 0.4 x10(3)/[facility] LABORATORY Basophil % 1.5 % [facility] Baso Absolute 0.1 0.0 - 0.1 x10(3)/[facility] LABORATORY Immature Gran % 0.20 % [facility] Comment: Immature granulocytes(IG's)percentage and absolute count will include metamyelocytes, myelocytes, and promyelocytes. Blood smears from CBCs yielding IG's will be scanned manually for concordance. If this scan disagrees with the automated IG or if promyelocytes are noted, a manual differential will be performed. Immature Gran Absolute 0.01 0.00 - 0.04 x10(3)/[facility] LABORATORY Blood specimen (specimen) 02/23/2019 3:22 AM EST 02/23/2019 3:48 AM EST Narrative Resulting Agency Comment Spec In Lab Servando Nolan MD HEMATOLOGY ORDERABLE S [facility] [place] [address] * (ABNORMAL) Hemogram (02/23/2019 3:22 AM EST) White Blood Cell 6.0 4.0 - 9.5 x10(3)/mc L [facility] Red Blood Cell 3.74(L) 4.00 - 5.21 x10(6)/mc L [facility] Hemoglobin 10.8(L) 11.7 - 15.5 gm/dL [facility] Hematocrit 35.4(L) 35.7 - 45.8 % [facility] Mean Cell Volume 94.7(H) 82.6 - 94.4 fL [facility] Mean Cell Hemoglobin 28.9 27.1 - 32.0 pg [facility] Mean Cell Hemoglobin Concentration 30.5(L) 31.7 - 35.0 gm/dL [facility] Platelet 353 145 - 357 x10(3)/mc L [facility] RDW Standard Deviation 46.1(H) 37.0 - 46.0 fL [facility] RDW coefficient of variation 13.4 11.5 - 14.1 % [facility] Mean Platelet Volume 10.0 7.6 - 12.9 fL [facility] NRBC% auto 0.0 % [facility] NRBC Absolute 0.000 0.000 - 0.000 x10(3)/mc L [facility] Blood specimen (specimen) 02/23/2019 3:22 AM EST 02/23/2019 3:48 AM EST Narrative Resulting Agency Comment Spec In Lab Servando Nolan MD HEMATOLOGY ORDERABLE S Performing Organization Address City/State/[facility] Co de Phone Number [facility] [place] [address] * (ABNORMAL) BMP w/fasting Glucose (02/23/2019 3:22 AM EST) Glucose Fasting 95 65 - 99 mg/dL [facility] Comment: ?Fasting* Glucose Interpretive [...] of Diabetes Mellitus, Position Statement from the [place]. ??Diabetes Care, Volume 33, Supplement 1, Apr 2009 Blood Urea Nitrogen 18 8 - 18 mg/dL [facility] Creatinine 1.36(H) 0.70 - 1.20 mg/dL [facility] Sodium 141 135 - 145 mmol/L [facility] Potassium 4.7 3.5 - 5.0 mmol/L [facility] Comment: Please note: ??Patients with WBC >100,000 may have falsely elevated Potassium levels. ??For accurate Potassium quantification in these patients send serum separator tube (gold top) for subsequent determinations. ??Contact the Clinical Chemistry Laboratory if there are any questions. Chloride 106 98 - 107 mmol/L [facility] Carbon Dioxide 23 22 - 31 mmol/L [facility] Anion Gap 12 5 - 15 mmol/L [facility] Calcium 9.1 8.5 - 10.5 mg/dL [facility] Est Glomerular Filtration Rate 42(L) >=60 mL/min/1. 73 m?? [facility] Comment: The eGFR was calculated using the CKD-EPI equation. As with all creatinine based estimates of kidney function, eGFR values calculated with the CKD-EPI equation are not accurate in patients with acute kidney failure, extremes of body mass or the acutely ill. [email or web address] eGFR 49(L) >=60 mL/min/1. 73 m?? [facility] Comment: The eGFR was calculated using the CKD-EPI equation. As with all creatinine based estimates of kidney function, eGFR values calculated with the CKD-EPI equation are not accurate in patients with acute kidney failure, extremes of body mass or the acutely ill. [email or web address] Blood specimen (specimen) 02/23/2019 3:22 AM EST 02/23/2019 3:48 AM EST Narrative Resulting Agency Comment Spec In Lab Jaxon Fontaine MD CHEMISTRY ORDERABLES [facility] [place] [address] * POCT Glucose (02/22/2019 8:57 AM EST) Glucose, POC 67 65 - 199 mg/dL [facility] Comment: Supplemental ranges: <140 mg/dL before meals <180 mg/dL all other times of the day Blood specimen (specimen) 02/22/2019 8:57 AM EST 02/22/2019 8:57 AM EST Jaxon Fontaine MD POINT [place] [address] * Differential, Automated (02/22/2019 3:41 AM EST) [facility] Neutrophil % 50.4 % [facility] Neutrophil Absolute 3.04 1.70 - 6.10 x10(3)/[facility] LABORATORY Lymph % 33.4 % [facility] Lymphocytes Abs 2.0 0.9 - 3.2 x10(3)/[facility] LABORATORY Monocyte % 7.5 % [facility] Monocyte Abs 0.4 0.3 - 0.9 x10(3)/[facility] LABORATORY Eos % 7.3 % [facility] Eosinophils Abs 0.4 0.0 - 0.4 x10(3)/[facility] LABORATORY Basophil % 1.2 % [facility] Baso Absolute 0.1 0.0 - 0.1 x10(3)/[facility] LABORATORY Immature Gran % 0.20 % [facility] Comment: Immature granulocytes(IG's)percentage and absolute count will include metamyelocytes, myelocytes, and promyelocytes. Blood smears from CBCs yielding IG's will be scanned manually for concordance. If this scan disagrees with the automated IG or if promyelocytes are noted, a manual differential will be performed. Immature Gran Absolute 0.01 0.00 - 0.04 x10(3)/[facility] LABORATORY Blood specimen (specimen) 02/22/2019 3:41 AM EST 02/22/2019 4:17 AM EST Narrative Resulting Agency Comment Spec In Lab Zenobia Quijano MD HEMATOLOGY ORDERABLE S [facility] [place] [address] * (ABNORMAL) Hemogram (02/22/2019 3:41 AM EST) White Blood Cell 6.0 4.0 - 9.5 x10(3)/[facility] LABORATORY Red Blood Cell 3.58(L) 4.00 - 5.21 x10(6)/[facility] LABORATORY Hemoglobin 10.2(L) 11.7 - 15.5 gm/dL [facility] Hematocrit 33.5(L) 35.7 - 45.8 % [facility] Mean Cell Volume 93.6 82.6 - 94.4 fL [facility] Mean Cell Hemoglobin 28.5 27.1 - 32.0 pg [facility] Mean Cell Hemoglobin Concentration 30.4(L) 31.7 - 35.0 gm/dL [facility] Platelet 351 145 - 357 x10(3)/[facility] LABORATORY RDW Standard Deviation 45.7 37.0 - 46.0 [facility] LABORATORY RDW coefficient of variation 13.2 11.5 - 14.1 % [facility] Mean Platelet Volume 10.1 7.6 - 12.9 [facility] LABORATORY NRBC% auto 0.0 % [facility] NRBC Absolute 0.000 0.000 - 0.000 x10(3)/[facility] LABORATORY Blood specimen (specimen) 02/22/2019 3:41 AM EST 02/22/2019 4:17 AM EST Narrative Resulting Agency Comment Spec In Lab Zenobia Quijano MD HEMATOLOGY ORDERABLE S [facility] [place] [address] * (ABNORMAL) BMP w/fasting Glucose (02/22/2019 3:41 AM EST) Glucose Fasting 125(H) 65 - 99 mg/dL [facility] Comment: ?Fasting* Glucose Interpretive [...] of Diabetes Mellitus, Position Statement from the [employer]. ??Diabetes Care, Volume 33, Supplement 1, Apr 2009 Blood Urea Nitrogen 21(H) 8 - 18 mg/dL [facility] Creatinine 1.48(H) 0.70 - 1.20 mg/dL [facility] Sodium 141 135 - 145 mmol/L [facility] Potassium 4.9 3.5 - 5.0 mmol/L [facility] Comment: Please note: ??Patients with WBC >100,000 may have falsely elevated Potassium levels. ??For accurate Potassium quantification in these patients send serum separator tube (gold top) for subsequent determinations. ??Contact the Clinical Chemistry Laboratory if there are any questions. Chloride 106 98 - 107 mmol/L [facility] Carbon Dioxide 23 22 - 31 mmol/L [facility] Anion Gap 12 5 - 15 mmol/L [facility] Calcium 8.7 8.5 - 10.5 mg/dL [facility] Est Glomerular Filtration Rate 38(L) >=60 mL/min/1. 73 m?? [facility] Comment: The eGFR was calculated using the CKD-EPI equation. As with all creatinine based estimates of kidney function, eGFR values calculated with the CKD-EPI equation are not accurate in patients with acute kidney failure, extremes of body mass or the acutely ill. [email or web address] eGFR 44(L) >=60 mL/min/1. 73 m?? [facility] Comment: The eGFR was calculated using the CKD-EPI equation. As with all creatinine based estimates of kidney function, eGFR values calculated with the CKD-EPI equation are not accurate in patients with acute kidney failure, extremes of body mass or the acutely ill. [email or web address] Blood specimen (specimen) 02/22/2019 3:41 AM EST 02/22/2019 4:17 AM EST Narrative Resulting Agency Comment Spec In Lab Jaxon Fontaine MD CHEMISTRY ORDERABLES Performing Organization Address City/[facility]/ZIP Co de Phone Number [facility] [place] [address] * Urinalysis Microscopic Exam (02/21/2019 5:25 PM EST) RBC, Urine 3 0 - 4 /HPF [facility] WBC, Urine 5 0 - 5 /HPF [facility] Urine specimen obtained via indwelling urinary catheter (specimen) 02/21/2019 5:25 PM EST 02/21/2019 5:52 PM EST Narrative Resulting Agency Comment Spec In Lab Servando Nolan MD URINE ORDERABLES Performing Organization Address City/[facility]/ZIP Co de Phone Number [facility] [place] [address] * (ABNORMAL) Urinalysis with reflex Culture (02/21/2019 5:25 PM EST) Glucose, Urine Dipstick Negative Negative mg/dL [facility] Protein, Urine Dipstick Negative Negative mg/dL [facility] Bilirubin, Urine Dipstick Negative Negative mg/dL [facility] Comment: Clinical correlation required for positive Urine Bilirubin results as false positive may occur with some drugs and drug related products. If a false positive is suspected a serum total bilirubin should be considered if clinically indicated. Urobilinogen, Urine Dipstick Normal Normal mg/dL [facility] pH, Urn (dipstick) 6.5 5.0 - 8.0 [facility] Blood, Urine Dipstick Negative Negative mg/dL [facility] Ketone, Urine Dipstick Negative Negative mg/dL [facility] Nitrite, Urine Dipstick Negative Negative [facility] Leukocytes, Urine Dipstick Trace(A) Negative [facility] Appearance, Urine Dipstick Clear Clear [facility] Specific [place] Urine Automated 1.015 1.002 - 1.030 [facility] Color, Urine Dipstick Yellow Yellow [facility] Reflex to Culture No [facility] Urine specimen obtained via indwelling urinary catheter (specimen) 02/21/2019 5:25 PM EST 02/21/2019 5:52 PM EST Narrative Resulting Agency Comment Spec In Lab Jaxon Fontaine MD URINE ORDERABLES Performing Organization Address City/State/[facility] Co de Phone Number [facility] [place] [address] * Differential, Automated (02/21/2019 3:27 AM EST) Neutrophil % 56.1 % [facility] Neutrophil Absolute 3.96 1.70 - 6.10 x10(3)/[facility] LABORATORY Lymph % 28.8 % [facility] Lymphocytes Abs 2.0 0.9 - 3.2 x10(3)/[facility] LABORATORY Monocyte % 7.6 % [facility] Monocyte Abs 0.5 0.3 - 0.9 x10(3)/[facility] LABORATORY Eos % 6.2 % [facility] Eosinophils Abs 0.4 0.0 - 0.4 x10(3)/[facility] LABORATORY Basophil % 1.0 % [facility] Baso Absolute 0.1 0.0 - 0.1 x10(3)/[facility] LABORATORY Immature Gran % 0.30 % [facility] Comment: Immature granulocytes(IG's)percentage and absolute count will include metamyelocytes, myelocytes, and promyelocytes. Blood smears from CBCs yielding IG's will be scanned manually for concordance. If this scan disagrees with the automated IG or if promyelocytes are noted, a manual differential will be performed. Immature Gran Absolute 0.02 0.00 - 0.04 x10(3)/[facility] LABORATORY Blood specimen (specimen) 02/21/2019 3:27 AM EST 02/21/2019 3:36 AM EST Narrative Resulting Agency Comment Spec In Lab Zenobia Quijano MD HEMATOLOGY ORDERABLE S [facility] [place] [address] * (ABNORMAL) Hemogram (02/21/2019 3:27 AM EST) White Blood Cell 7.1 4.0 - 9.5 x10(3)/mc L [facility] Red Blood Cell 3.38(L) 4.00 - 5.21 x10(6)/mc L [facility] Hemoglobin 9.9(L) 11.7 - 15.5 gm/dL [facility] Hematocrit 31.9(L) 35.7 - 45.8 % [facility] Mean Cell Volume 94.4 82.6 - 94.4 fL [facility] Mean Cell Hemoglobin 29.3 27.1 - 32.0 pg [facility] Mean Cell Hemoglobin Concentration 31.0(L) 31.7 - 35.0 gm/dL [facility] Platelet 331 145 - 357 x10(3)/mc L [facility] RDW Standard Deviation 46.7(H) 37.0 - 46.0 fL [facility] RDW coefficient of variation 13.4 11.5 - 14.1 % [facility] Mean Platelet Volume 9.8 7.6 - 12.9 fL [facility] NRBC% auto 0.0 % [facility] NRBC Absolute 0.000 0.000 - 0.000 x10(3)/mc L [facility] Blood specimen (specimen) 02/21/2019 3:27 AM EST 02/21/2019 3:36 AM EST Narrative Resulting Agency Comment Spec In Lab Zenobia Quijano MD HEMATOLOGY ORDERABLE S Performing Organization Address City/State/[facility] Co de Phone Number [facility] [place] [address] * (ABNORMAL) BMP w/fasting Glucose (02/21/2019 3:27 AM EST) Glucose Fasting 76 65 - 99 mg/dL [facility] Comment: ?Fasting* Glucose Interpretive [...] of Diabetes Mellitus, Position Statement from the [employer]. ??Diabetes Care, Volume 33, Supplement 1, Apr 2009 Blood Urea Nitrogen 27(H) 8 - 18 mg/dL [facility] Creatinine 1.60(H) 0.70 - 1.20 mg/dL [facility] Sodium 141 135 - 145 mmol/L [facility] Potassium 4.8 3.5 - 5.0 mmol/L [facility] Comment: Please note: ??Patients with WBC >100,000 may have falsely elevated Potassium levels. ??For accurate Potassium quantification in these patients send serum separator tube (gold top) for subsequent determinations. ??Contact the Clinical Chemistry Laboratory if there are any questions. Chloride 107 98 - 107 mmol/L [facility] Carbon Dioxide 23 22 - 31 mmol/L [facility] Anion Gap 11 5 - 15 mmol/L [facility] Calcium 8.7 8.5 - 10.5 mg/dL [facility] Est Glomerular Filtration Rate 35(L) >=60 mL/min/1. 73 m?? [facility] Comment: The eGFR was calculated using the CKD-EPI equation. As with all creatinine based estimates of kidney function, eGFR values calculated with the CKD-EPI equation are not accurate in patients with acute kidney failure, extremes of body mass or the acutely ill. [email or web address] eGFR 40(L) >=60 mL/min/1. 73 m?? [facility] Comment: The eGFR was calculated using the CKD-EPI equation. As with all creatinine based estimates of kidney function, eGFR values calculated with the CKD-EPI equation are not accurate in patients with acute kidney failure, extremes of body mass or the acutely ill. [email or web address] Blood specimen (specimen) 02/21/2019 3:27 AM EST 02/21/2019 3:36 AM EST Narrative Resulting Agency Comment Spec In Lab Jaxon Fontaine MD CHEMISTRY ORDERABLES [facility] [place] [address] * Differential, Automated (02/20/2019 5:45 PM EST) Neutrophil % 61.4 % [facility] Neutrophil Absolute 4.30 1.70 - 6.10 x10(3)/[facility] LABORATORY Lymph % 25.4 % [facility] Lymphocytes Abs 1.8 0.9 - 3.2 x10(3)/[facility] LABORATORY Monocyte % 6.7 % [facility] Monocyte Abs 0.5 0.3 - 0.9 x10(3)/[facility] LABORATORY Eos % 5.3 % [facility] Eosinophils Abs 0.4 0.0 - 0.4 x10(3)/[facility] [facility] Basophil % 0.9 % [facility] Baso Absolute 0.1 0.0 - 0.1 x10(3)/[facility] LABORATORY Immature Gran % 0.30 % [facility] LABORATORY Comment: Immature granulocytes(IG's)percentage and absolute count will include metamyelocytes, myelocytes, and promyelocytes. Blood smears from CBCs yielding IG's will be scanned manually for concordance. If this scan disagrees with the automated IG or if promyelocytes are noted, a manual differential will be performed. Immature Gran Absolute 0.02 0.00 - 0.04 x10(3)/[facility] LABORATORY Blood specimen (specimen) 02/20/2019 5:45 PM EST 02/20/2019 6:01 PM EST Narrative Resulting Agency Comment Spec In Lab Zenobia Quijano MD HEMATOLOGY ORDERABLE S [facility] [place] [address] * (ABNORMAL) Hemogram (02/20/2019 5:45 PM EST) White Blood Cell 7.0 4.0 - 9.5 x10(3)/ L [facility]OR[facility] Red Blood Cell 3.50(L) 4.00 - 5.21 x10(6)/ L [facility] Hemoglobin 10.4(L) 11.7 - 15.5 gm/dL [facility] Hematocrit 33.0(L) 35.7 - 45.8 % [facility] Mean Cell Volume 94.3 82.6 - 94.4 fL [facility] Mean Cell Hemoglobin 29.7 27.1 - 32.0 pg [facility] Mean Cell Hemoglobin Concentration 31.5(L) 31.7 - 35.0 gm/dL [facility] Platelet 349 145 - 357 x10(3)/mc L [facility] LABOR[facility]ORY RDW Standard Deviation 46.7(H) 37.0 - 46.0 fL [facility] LAB[facility] RDW coefficient of variation 13.5 11.5 - 14.1 % [facility] Mean Platelet Volume 10.0 7.6 - 12.9 [facility] LABORATORY NRBC% auto 0.0 % [facility] NRBC Absolute 0.000 0.000 - 0.000 x10(3)/mc L [facility] LABORATORY Blood specimen (specimen) 02/20/2019 5:45 PM EST 02/20/2019 6:01 PM EST Narrative Resulting Agency Comment Spec In Lab Zenobia Quijano MD HEMATOLOGY ORDERABLE S Performing Organization Address [facility]/State/ZIP Co de Phone Number [facility] [place] [address] * (ABNORMAL) BMP w/fasting Glucose (02/20/2019 5:45 PM EST) Glucose Fasting 134(H) 65 - 99 mg/dL [facility]ORATORY Comment: ?Fasting* Glucose Interpretive [...] of Diabetes Mellitus, Position Statement from the [place]. ??Diabetes Care, Volume 33, Supplement 1, Apr 2009 Blood Urea Nitrogen 29(H) 8 - 18 mg/dL [facility] Creatinine 1.58(H) 0.70 - 1.20 mg/dL [facility] Sodium 142 135 - 145 mmol/L [facility] Potassium 5.0 3.5 - 5.0 mmol/L [facility] Comment: Please note: ??Patients with WBC >100,000 may have falsely elevated Potassium levels. ??For accurate Potassium quantification in these patients send serum separator tube (gold top) for subsequent determinations. ??Contact the Clinical Chemistry Laboratory if there are any questions. Chloride 106 98 - 107 mmol/L [facility] Carbon Dioxide 23 22 - 31 mmol/L [facility] Anion Gap 13 5 - 15 mmol/L [facility] Calcium 9.1 8.5 - 10.5 mg/dL [facility] Est Glomerular Filtration Rate 35(L) >=60 mL/min/1. 73 m?? [facility]ORY Comment: The eGFR was calculated using the CKD-EPI equation. As with all creatinine based estimates of kidney function, eGFR values calculated with the CKD-EPI equation are not accurate in patients with acute kidney failure, extremes of body mass or the acutely ill. [email or web address] [email or web address] eGFR 41(L) >=60 mL/min/1. 73 m?? [facility] LABORATORY Comment: The eGFR was calculated using the CKD-EPI equation. As with all creatinine based estimates of kidney function, eGFR values calculated with the CKD-EPI equation are not accurate in patients with acute kidney failure, extremes of body mass or the acutely ill. [email or web address] Blood specimen (specimen) 02/20/2019 5:45 PM EST 02/20/2019 6:01 PM EST Narrative Resulting Agency Comment Spec In Lab Jaxon Fontaine MD CHEMISTRY ORDERABLES [facility] [place] [address] * Anaerobic Culture (02/20/2019 5:42 PM EST) Anaerobic Culture No anaerobic organisms isolated [facility] LABORATORY Deep Wound INGUINAL REGION STRUCTURE / Unknown 02/20/2019 5:42 PM EST 02/20/2019 6:03 PM EST Comment:RIGHT GROIN DEEP WOU ND CULTURE Narrative Resulting Agency Comment Spec In Lab Jaxon Fontaine MD MICROBIOLOGY - GENER AL ORDERABLES Performing Organization Address [facility] Co de Phone Number [facility] [place] [address] * (ABNORMAL) Abscess/Wound Aspirate Culture (02/20/2019 5:42 PM EST) Abscess/Wound Aspirate Culture Escherichia coli isolated from broth culture. Few Staphylococcus lugdunensis (A) [facility] LABOR[facility] Gram Stain Few Neutrophils seen Rare Gram Positive Cocci seen (A) [facility] LABOR[facility] Organism Escherichia coli(A) [facility] LABORATORY Organism Staphylococcus lugdunensis(A) [facility] LABORAT[facility] Organism Gram Positive Cocci(A) [facility] LABORATORY Deep Wound INGUINAL REGION [...] Sensitive Comment:Gentamicin i s not appropriate for [place]-therapy. Staphylococcus lugdunensis Levofloxacin MICROSCAN METHOD Sensitive Staphylococcus [...] METHOD Sensitive Jaxon Fontaine MD MICROBIOLOGY - [facility] [place] [address] documented in this encounter Visit Diagnoses Diagnosis Hematoma Contusion of unspecified site Hematoma Contusion of unspecified site Hematoma of [...] Given 02/27/2019 11:55 AM EST 81 mg bacitracin injection ONCE PRN, Starting on Mon02/20/19 at 1700, Until Mon03/01/19 at 1808, Intra-Operative (Intra-Procedure), Routine Given 02/20/2019 5:00 PM EST 50,000 Units carvedilol (COREG) tablet 1.56 mg 1.56 mg, [...] 0834 (Given - Provider: Gogo Terrell RN)171 ([facility] Hold - Provider: Admin Adt - Reason: Transfer to a Procedural area)190 ([facility] Unhold - Provider: Admin Adt)2039 (Given - [...] Saldana, TAMEKA)1154 (Given - Provider: Gogo Terrell RN)1718 ([facility]UN Hold - Provider: Admin Adt - Reason: Transfer to a Procedural area)190 ([facility] Unhold - Provider: Admin Adt)2040 (Given - Provider: Raj Saldana RN) 0307 (Given - Provider: Raj Saldana RN)1233 (Given - Provider: Hilton Montez RN)2031 (Given - Provider: Claudine Peace RN) 045 (Given - Provider: Claudine Peace RN)1133 (Given [...] - Reason: Transfer to a Procedural area)1903 ([facility] Unhold - Provider: Admin Adt) 0810 (Given - Provider: Hilton Montez, TAMEKA) melatonin tablet 3 mg 3 mg, Oral, NIGHTLY, First dose on Mon02/24/19 at 2200, Until Discontinued, Routine 1718 ([facility] Hold - Provider: Admin Adt - Reason: Transfer to a Procedural area)190 ([facility] Unhold - Provider: Admin Adt)222 (Given - Provider: Raj Saldana RN) 2031 (Given - Provider: Claudine Peace RN) pantoprazole (PROTONIX) tablet 40 mg 40 mg, Oral, DAILY, First dose on Mon02/21/19 at 0900, Until Discontinued, DO NOT CRUSH OR OPEN, Routine 0833 (Given - Provider: Gogo Terrell RN)171 ([facility] Hold - Provider: Admin Adt - Reason: Transfer to a Procedural area)190 ([facility] Unhold - Provider: Admin Adt) 0810 (Given - Provider: Hilton Montez RN) 0831 (Given - Provider: Toni Calabrese, TAMEAK) polyethylene glycol (MIRALAX) packet 17 g 17 g, Oral, DAILY, First dose on Mon02/26/19 at 1245, Until Discontinued, Routine 0900 (Not Given - Provider: Goog Terrell RN - Reason: NPO)171 ([facility] Hold - Provider: Admin Adt - Reason: Transfer to a Procedural area)190 ([facility] Unhold - Provider: Admin Adt) 0900 (Not Given - Provider: Hilton Montez RN - Reason: Patient/family refused) 0900 (Not Given - Provider: Toni Calabrese RN - Reason: Patient/family refused) simvastatin (ZOCOR) tablet 40 mg 40 mg, Oral, EVERY EVENING, First dose on Mon02/20/19 at 2230, Until Discontinued 1700 (Not Given - Provider: Gogo Terrell RN - Reason: Patient/family refused)171 ([facility] Hold - Provider: Admin Adt - Reason: Transfer to a Procedural area)190 ([facility] Unhold - Provider: Admin Adt) 1642 (Given - Provider: Hilton Montez, TAMEKA) sodium chloride 0.9% 500 mL IV bolus (COMPLETED) at 250 mL/hr, Intravenous, ONCE, 1 dose, On Mon02/28/19 at 0530 0529 (New Bag - Provider: Raj Saldana, TAMEKA)0729 (Stopped - Provider: Hilton Montez RN) sodium [...] Procedural area)1903 ([facility]UN Unhold - Provider: Admin Adt)2228 (Given - Provider: Raj Saldana, TAMEKA) 0307 (Given - Provider: Raj Saldana, TAMEKA)2033 (Given - Provider: Claudine Peace, TAMEKA) dextrose 10% infusion (CANCELED)(Linked Group 2) 250 [...] Bolus (Units))., Medication Name: aspart (Novolog) 1717 ([facility] Hold - Provider: Admin Adt - Reason: Transfer to a Procedural area)1902 ([facility] Unhold - Provider: Admin Adt) ondansetron (ZOFRAN) injection 4-8 mg(Linked Group 4) 4-8 mg, Intravenous, EVERY 8 HOURS PRN, Starting on Mon02/20/19 at 2056, Until Mon03/01/19 at 1808, Nausea, Start with 4mg and if ineffective in 30 minutes, give an additional 4mg 1717 ([facility] Hold - Provider: Admin Adt - Reason: Transfer to a Procedural area)1902 ([facility] Unhold - Provider: Admin Adt) ondansetron [...] 45 minutes if ineffective. , Routine 1717 ([facility] Hold - Provider: Admin Adt - Reason: Transfer to a Procedural area)1902 ([facility] Unhold - Provider: Admin Adt) oxyCODONE (ROXICODONE) immediate release tablet 5 mg 5 mg, Oral, EVERY 4 HOURS PRN, Starting on Mon02/20/19 at 1738, Until Mon03/01/19 at 1808, Pain, Routine 1717 ([facility] Hold - Provider: Admin Adt - Reason: Transfer to a Procedural area)1902 ([facility] Unhold - Provider: Admin Adt) Linked Groups Order Group 1: POCT Fingerstick Glucose (CANCELED) Routine, 4 TIMES DAILY BEFORE MEALS & AT BEDTIME, First occurrence on Meseret 02/28/19 at 2200, Until Specified, Consider choosing FOUR [...] on Mon02/20/19 at 2007, Until Mon02/28/19 at 1949, Low blood sugar, [...] on Mon02/20/19 at 2007, Until Mon02/28/19 at 1949, For BG 50-70 [...] 4mg documented in this encounter Care Teams Correspondence Review Clerk Relationship Specialty Start Date End Date Shirley Yu MD [address] [place] [address] PCP - General 11/19/14 documented as of this encounter
--- OUTSIDE RECORDS SUMMARY | 2023-12-13 18:26 | XMS_ITS | Encounter Summary ---
[place] [address] Care Team Providers Care Carbon Sequestration Plant Manager Name Role Phone Shirley Yu MD Primary Care Provider [phone] Reason for Visit * Auth/Cert Specialty Diagnoses / Procedures Referred By Dominik mcleod Referred To Contact Diagnoses Groin hematoma right groin hematoma n/a n/a Procedures PRO BLOOD/LYMPH SYSTEM PROCEDURE EXPLORATION GROIN W\DRAIN & DEBRIDE LYMPHOCELE (WRVU *) Referral ID Status Reason Start Date Expiration Date Visits Re quested Visits Authorized [id number] 1 1 Encounter Details Date Type Department Care Team (Late st Contact Info) Description 02/22/2019 3:00 PM EST - 02/22/2019 4:15 PM EST [place] [id number] Jaxon Fontaine MD [facility] [place] [address] DEBRIDEMENT SKIN AND SUBCU, LOWER EXTREMITY (WRVU [...] Sign Reading Time Taken Comments Blood Pressure 167/64 02/22/2019 3:16 PM EST Pulse 58 02/22/2019 9:26 AM EST Temperature 36.8 ??C (98.2 ??F) 02/22/2019 3:16 PM ES T Respiratory Rate 16 02/22/2019 3:16 PM EST Oxygen Saturation 92% 02/22/2019 3:16 PM EST Inhaled Oxygen Concentration - - [...] PM Bridget Dominguez MD; DILATION AND TEST, URSSELL; TECHRUSSELL Ophthalmology at [facility] Arrive at: Waxing Machine Operator Helper Area [phone] Future Orders Complete By Expires SHEFALI, legs, multiple levels [VAS8 Custom] 03/31/2019 (Approximate) 06/30/2019 Process Instructions: There is no in-house vascular slab depiler operator available on weeknights (5pm-8am), weekends, or holidays. IF THIS IS A REQUEST FOR AN EMERGENT STUDY DURING THOSE HOURS, please have the senior provider responsible for the patient page the Vascular Surgery Fellow/Senior Resident special education resource room teacher to discuss options. Scheduling Instructions: Questions: Indication for study/signs & symptoms: PAD Question to be answered: change in blood flow to feet Preferred location?: [facility] Arterial Duplex Leg, Unil [VAS32 Custom] 03/31/2019 (Approximate) 09/30/2019 Process Instructions: There is no in-house vascular slab depiler operator available on weeknights (5pm-8am), weekends, or holidays. IF THIS IS A REQUEST FOR AN EMERGENT STUDY DURING THOSE HOURS, please have the senior provider responsible for the patient page the Vascular Surgery Fellow/Senior Resident special education resource room teacher to discuss options. Scheduling Instructions: Questions: Indication for study/signs & symptoms: s/p RIGHT fem-pop proximal anastomosis redo, ? change Question to be answered: patency Laterality: Right Is there a RIGHT LOWER EXTREMITY graft?: Yes RIGHT Graft Location: fem pop Preferred location?: [facility] Referral to Home Health - at DISCHARGE [[id number] CPT(R)] As directed Process Instructions: Scheduling Instructions: Comments: DOCUMENTATION FOR VNA SERVICES (INCLUDING THOSE PATIENTS WITH MEDICARE COVERAGE REQUIRING HOME VNA SERVICES AND/OR HOSPICE SERVICES) PATIENT'S LOCATION: Jennifer Branch [address] [place] [phone] (home) Cell: No relevant phone numbers on file. Form Tamper's Name: self In discussion with the attending physician, it is certified that this patient is under their care and that they, or a Nurse Practitioner,Clinical Nurse specialist or Physician Tailer Off who is working directly with them, had [...] for managing ADL's. HOME HEALTH CARE AGENCY: [facility] PHONE: [phone] FAX: [phone] Start of care: 24-48 hours post discharge [...] Shirley Yu MD [address] / [place] [address] All VNA agencies which cover the area of patient's residence have been reviewed, either verbally christo writing, and patient/family have chosen the home health care agency noted Questions: Agency name and contact information: [facility] Patient location post discharge: [facility] What services are requested: Registered Nurse Start [...] Diabetic Supplies, Miscellan. Misc Form faxed to [employer] for pump supplies. Quantity: 100 each Refills: [...] For any problems or questions please call [phone] BREONNA Hou, shoe laster Nurse Clinician For issues on weeknights after 5pm and weekends please call [phone] and ask for the Vascular Fellow special education resource room teacher. documented in this encounter Discharge Instructions * Patient Instructions* Nathaly Victor, DISK OPERATOR - 02/22/2019 7:43 AM EST Patient Instructions [...] For any problems or questions please call [phone] BREONNA Hou, shoe laster Nurse Clinician For issues on weeknights after 5pm and weekends please call [phone] and ask for the Vascular Fellow special education resource room teacher. documented in this encounter Medications at Time [...] TWICE A DAY 98 07/26/2016 Diabetic Supplies, [facility]. Misc Form faxed to [employer] for pump supplies. 100 each 12 03/23/2015 [...] to follow up. D/c summary faxed to [facility] * Servando Nolan MD - 03/01/2019 11:03 [...] this morning -Vac change at bedside Anticoagulation: [facility] DVT Prophylaxis Antiplatelet: SANJIV Nolan MD 03/01/2019 Pager: [phone] * Eva Gomes RN - 03/01/2019 10:39 AM EST The patient/premium service representative has been provided a list of Home Health Agencies/DME vendors which servetheir preferred geographic area. A letter describing our affiliations was reviewed with them and they were educated about their right to choose where referrals are placed. Patient requests referral to: [facility] Expected date of discharge: 03/01. Referral routed to the District Court Bailiff for matching with agency/vendor and to provide any required information. * Arturo Castro - 03/01/2019 3:54 AM EST Respiratory Therapy NIV Note NIV Settings: NIV Mode: CPAP PEEP/CPAP (cm H2O): 12 cm H20 NIV Measurements: Resp: 16 Mve: 7 Leak (L/min): 34 L/min Vte: 427 SpO2: 95 % Laboratory: Lab Results Component Value Date/Time PHART 7.35 02/04/2019 03:26 PM [id number] 39 02/04/2019 03:26 PM PO2ART 82 (L) 02/04/2019 03:26 PM [id number] 21.3 02/04/2019 03:26 PM BEART -4.6 (L) [...] up while inpatient MARY CHUA Beeper #: [id number] * Nathaly Victor, DISK OPERATOR - 02/28/2019 7:09 AM EST Vascular Surgery [...] 1.94* 1.44* CALCIUM 8.9 9.0 9.0 Microbiology: 11/13 Wound culture: E coli, staph lugdunensis. E [...] mazariegos -vac change tomorrow at bedside Anticoagulation: [facility] DVT Prophylaxis Antiplatelet: SANJIV Victor APRN 02/28/2019 Pager: [phone] * NeerajrArturo - 02/28/2019 4:06 AM EST Respiratory Therapy NIV Note NIV Settings: HOME CPAP NIV Mode: CPAP PEEP/CPAP (cm H2O): 12 cm H20 NIV Measurements: Resp: 16 Mve: 7 Leak (L/min): 34 L/min Vte: 427 SpO2: 96 % Laboratory: Lab Results Component Value Date/Time PHART 7.35 02/04/2019 03:26 PM [id number] 39 02/04/2019 03:26 PM PO2ART 82 (L) 02/04/2019 03:26 PM [id number] 21.3 02/04/2019 03:26 PM BEART -4.6 (L) [...] Help with home cpap when needed Arturo Pickardr * Milton Grider MD - 02/27/2019 9:29 [...] Prophylaxis Antiplatelet: SANJIV Nolan MD 02/27/2019 Pager: [phone] * Eva Gomes RN - 02/26/2019 10:19 [...] VAC Therapy Insurance auth faxed back to [facility]. Ready for pharmacy picking tech from distribution on Monday. [facility] ordered for wound vac changes. Confirmed availability with Angelina from [facility]. . Care Management will continue to monitor progress, follow for continuity of care, and assist with discharge planning. Doorperson: Eva Gomes Pager [phone] * Nathaly Victor APRN - 02/26/2019 7:52 [...] change tomorrow -NPO after [place] tonight. Anticoagulation: [facility] DVT Prophylaxis Antiplatelet: SANJIV Victor APRN 02/26/2019 Pager: [phone] * Brielle Solano RN - 02/25/2019 1:28 [...] incase patent goes home with vac. The patient/premium service representative has been provided a list of Home Health Agencies/DME vendors which servetheir preferred geographic area. A letter describing our affiliations was reviewed with them and they were educated about their right to choose where referrals are placed. Patient requests referral to : [facility] for wound vac [facility] Expected date of discharge: 1-2 days. Referral routed to the District Court Bailiff for matching with agency/vendor and to provide any required information. ICare Management will continue to monitor progress, follow for continuity of care, and assist with discharge planning. Doorperson: Eva Gomes Pager [phone] * Nathaly Victor, DISK OPERATOR - 02/25/2019 11:04 AM EST Vascular Surgery [...] diet (Give Meds) for OR today. Anticoagulation: [facility] DVT Prophylaxis Antiplatelet: SANJIV Victor APRN 02/25/2019 Pager: [phone] * Nathaly Victor APRN - 02/25/2019 7:09 [...] diet (Give Meds) for OR today. Anticoagulation: H DVT Prophylaxis Antiplatelet: SANJIV Victor APRN 02/25/2019 Pager: [phone] * Tamiko De La O RN - [...] Intake/Output Summary (Last 24 hours) at 02/23/2019 191 Last data filed at 02/23/2019 1827 Gross [...] Control diet CHO counting level 2 Anticoagulation: H DVT Prophylaxis Antiplatelet: ASA Servando Nolan MD 02/23/2019 Pager: [phone] * Servando Nolan MD - 02/23/2019 11:58 [...] Prophylaxis Antiplatelet: SANJIV Nolan MD 02/23/2019 Pager: [phone] * Vinay Celeste RN - 02/22/2019 5:42 [...] up cultures -to OR today -NPO Anticoagulation: [facility] DVT Prophylaxis Antiplatelet: SANJIV Victor APRN 02/22/2019 Pager: [phone] * Jessica Maria RCP - 02/22/2019 3:41 [...] Prophylaxis Antiplatelet: SANJIV Victor APRN 02/21/2019 Pager: [phone] * Clinton Pierre RRT - 02/21/2019 12:22 [...] ??C (98.2 ??F)] Heart Rate: [60-70] Resp: [11-] BP: (117-170)/(48-77) SpO2: [94 %-100 %] Heart [...] hospital and thus didnot bring extra. Vascular validation intern Dr. Marni mckeon. 1999 Dr Grider [...] file Gets together: Not on file Attends evangelical service: Not on file Active member of [...] Diabetic Supplies, Miscellan. Misc Form faxed to [employer] for pump supplies. 100 each 12 ??? [...] MD, [place] Vascular surgery fellow Service pager [phone] documented in this encounter Miscellaneous Notes * [...] Handling Outcome: Ongoing (Interventions Implemented as Appropriate) 02/28/19 [id number] Restraint Interventions Safety Promotion/Fall Prevention -- activity [...] Appropriate) 02/28/19 1527 Interdisciplinary Rounds/Family Conf Participants patient;family;nursing;case worker * Plan of Care - Hilton Montez, [...] Appropriate) 02/25/19 175 Interdisciplinary Rounds/Family Conf Participants case worker;physical therapy;physician;nursing Problem: Skin Integrity Impairment, Risk/Actual (Adult) [...] Jensen MD - 02/27/2019 6:20 PM EST [facility] Operative Note Patient Name: Jennifer Branch : [id number] MR#: [id number] Case Date: 02/27/2019 Surgeon: Surgeon(s) and Role: * Patricia Jensen MD - Primary * Emeli aWll MD - Resident Preoperative diagnosis: right groin [...] and ADLs]: independent Surveillance [continuous indirect monitoring]: Gordy purposeful rounding Patient-specific fall prevention interventions for [...] Appropriate) 02/25/19 1753 Interdisciplinary Rounds/Family Conf Participants case worker;physical therapy;physician;nursing Problem: Skin Integrity Impairment, Risk/Actual (Adult) [...] sign off. Ayo Carbone PT, DPT Pager [phone] Inpatient Rehabilitation * Plan of Care - [...] *) performed by Jaxon Fontaine MD at [facility] MAIN OR ??? PRO BRONCHOSCOPY, DIAGNOSTIC N/A 06/21/2018 BRONCHOSCOPY, DIAGNOSTIC (WRVU 2.78) performed by César Escobar MD at [facility] MAIN OR ? ? PRO DEBRIDEMENT SUBCUTANEOUS TISSUE 20 SQCM/< Right 02/22/2019 DEBRIDEMENT SKIN AND SUBCU, LOWER EXTREMITY (WRVU 1.01) [facility] ? PRO DEBRIDEMENT SUBCUTANEOUS TISSUE 20 SQCM/< Right 02/25/2019 DEBRIDEMENT SKIN AND SUBCU, LOWER EXTREMITY (WRVU 1.01) [facility] ? ? PRO EDG FLEXIBLE TRANSORAL ABLATE TUMOR POLYP/LESION W/DILATION & WIRE N/A 06/22/2016 EGD, TRANSORAL; WITH ABLATION OF TUMOR(S), POLYP(S), OR OTHER LESION(S) (WRVU 4.26) performed by Christos Donald MD at [facility] ENDOSCOPY ??? PRO INJECT NERV BLCK, INTERCOST, MULTPL Right 06/21/2018 NERVE BLOCK, INTERCOSTAL NERVE, MULTIPLE (WRVU 1.68) [facility] ??? PRO REOPERATION, BYPASS GRAFT Right 02/04/2019 @RE-OP FOR RE-DO LOWER EXTREMITY BYPASS GRAFT, >1 MONTH P\ ORIGINAL SURGERY, ADD-ON CODE (WRVU 3.08) performed by Jaxon Fontaine MD at [facility] MAIN OR ??? PRO THORACOSCOPY WITH THERAPEUTIC WEDGE RESECTION INITIAL UNILAT Right 06/21/2018 @THORACOSCOPY, SURG; W/THERAPEUTIC WEDGE RESECTION, INIT UNILATERAL (WRVU 14.5) performed by César Escobar MD at [facility] MAIN OR ??? PRO THROMBOENDARTECTMY FEMORAL COMMON Right 02/04/2019 @ENDARTERECTOMY, COMMON FEMORAL W OR W/O PATCH GRAFT (WRVU 15.31) performed by Jaxon Fontaine MD [facility] MAIN OR ??? PRO THROMBOENDARTECTMY FEMORAL DEEP Right 02/04/2019 @ENDARTERECTOMY, PROFUNDAPLASTY, DEEP, PROFUNDA FEMORIS W OR W/O PATCH GRAFT (WRVU 18.58) performedby Jaxon Fontaine MD at [facility] MAIN OR ??? PRO TX EXTENSIVE RETINOPATHY, PHOTOCOAGULATION Left 2017 PRP OS [place] ??? PRO UPPER GI ENDOSCOPY, BIOPSY N/A 10/24/2016 UPPER GASTROINTESTINAL ENDOSCOPY,WITH BIOPSY SINGLE OR MULTIPLE (WRVU 2.49) performed by Agapito Parmar MD at [facility] ENDOSCOPY ??? PRO UPPER GI ENDOSCOPY, DIAGNOSTIC N/A 06/22/2016 EGD, UPPER GI ENDOSCOPY performed by Christos Donald MD at [facility] ENDOSCOPY ??? RETINAL LASER SURGERY Left [...] SFA stents ??? VASCULAR SURGERY 1009 Right BRAND SALES MANAGER-AK pop vein graft ??? VS ARTERIOGRAM LOWER EXTREMITY VASCULAR SURGERY 04/27/2018 VS Arteriogram Lower Extremity Vascular Surgery 04/27/2018 Jaxon Fontaine MD [facility] INTERVENTIONL RAD ??? YAG CAPSULOTOMY Bilateral [...] well. [facility]. Precautions/Special Considerations: insulin pump, groin incision, [...] and measurable assessment of functional outcome. Pager: [phone] NANCY MEDELLIN OT 02/26/2019 Occupational Therapy Rehabilitation [...] at 125 mmHg with minimal drainage. +CMS. Amzariegos remains in place and is draining adequately [...] Appropriate) 02/25/19 175 Interdisciplinary Rounds/Family Conf Participants case worker;physical therapy;physician;nursing Problem: Skin Integrity Impairment, Risk/Actual (Adult) [...] [direct monitoring required during toileting and ADLs]: mzaariegos Surveillance [continuous indirect monitoring]: lizzie Patient-specific fall prevention interventions for sensory deficits provided, if applicable: [X] No CPG GOAL OUTCOME EVALUATION: * Op Note - Emeli Wall MD - 02/25/2019 12:28 PM EST [facility] Operative Note Patient Name: Jennifer Branch : [id number] MR#: [id number] Case Date: 02/25/2019 Surgeon: Surgeon(s) and Role: [...] Daily Care Interventions Self-Care Promotion independence encouraged Avzquez Fall Risk History of Falling 0 Secondary [...] Skin Interventions Skin Protection -- adhesive use limited;ynsf-ac-cbupwr areas padded;transparent dressing maintained;tubing/devices free from skin [...] Outcome: Ongoing (Interventions Implemented as Appropriate) 02/23/19 1930 Safety Interventions Isolation Precautions standard precautions maintained [...] Fontaine MD - 02/22/2019 4:03 PM EST [facility] Operative Note Patient Name: Jennifer Bracnh : [id number] MR#: [id number] Case Date: 02/22/19 Surgeon: Surgeon(s) and Role: [...] of the dressing was changed. 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 Waiting for report from vascular. field identification specialist/[place] Department Operator will continue to follow patient???s progress and remain available if situation changes for coordination of care, psychosocial support and/or discharge planning. Eva Gomes RN Pager [phone] * Consult Note - Loretta Barkley RPH - 02/21/2019 9:27 AM EST Clinical Pharmacist Note - VancFD Jennifer Branch [id number] 1960 Jennifer Branch is a 58 y.o. [...] have. Alternately,during off-hours (9p-7a) you may call [phone] to contact a pharmacist. Loretta Barkley RPH [...] cathed at 0330 for 800. D/t void [id number]. CPAP on for MANISH. Pt using own [...] Quijano MD - 02/20/2019 5:31 PM EST [facility] Operative Note Patient Name: Jennifer Branch : [id number] MR#: [id number] Case Date: 02/20/2019 Surgeon: Surgeon(s) and Role: [...] PM EDT Tech [place] [phone] Marguerite Macias 12/19/2023 3:00 PM EDT Office [place] [phone] Gardenia Golden APRN [facility] [place] [address] 01/29/2024 1:[address] [place] [address] César Escobar MD [facility] [place] [address] 01/29/2024 2:30 PM EDT Office [place] [address] César Escobar MD [facility] [place] [address] documented as of this encounter Procedures Procedure [...] AUTO DIFF Routine 02/23/2019 3:22 AM EST Debridement, Skin, Sub-Q Tissue (90678) 02/22/2019 3:49 PM EST Hematoma POCT GLUCOSE [...] Text Report Department: Vascular Surgery Lab Patient: [id number] (JENNIFER BRANCH) CPT: 53291 ICD10: I73.9 Referring Physician: NATHALY VICTOR ?? [...] VASCUBASE 04/01/2019 1:05 PM EST Nathaly Victor DISK OPERATOR VASCULAR ORDERABLE S VASCUBASE * SHEFALI, legs, multiple levels (04/01/2019 1:05 PM EST) VB Text Report Department: Vascular Surgery Lab Patient: [id number] (JENNIFER BRANCH) CPT: 17889 ICD10: I73.9 Referring Physician: NATHALY VICTOR ?? [...] Dorsalis Pedis (Ankle) Artery ?102 ? 0.56 ??[place]-Biphasic ? Posterior Tibial (Ankle) Artery ??109 ? 0.60 ??[place]-Biphasic ? Great Toe ?65 ? 0.36 ?? [...] Glucose (03/01/2019 11:31 AM EST) Pathologist [facility] Glucose, POC 304(H) 65 - 199 mg/dL [facility] Comment: Supplemental ranges: <140 mg/dL before meals <180 mg/dL all other times of the day Blood specimen (specimen) 03/01/2019 11:31 AM EST 03/01/2019 11:31 AM EST Jaxon Fontaine MD POINT OF CARE TEST O RDERABLES Performing Organization Address [facility] Co de Phone Number [facility] [place] [address] * POCT Glucose (03/01/2019 8:27 AM EST) Glucose, POC 167 65 - 199 mg/dL [facility] Comment: Supplemental ranges: <140 mg/dL before meals <180 mg/dL all other times of the day Blood specimen (specimen) 03/01/2019 8:27 AM EST 03/01/2019 8:27 AM EST Jaxon Fontaine MD POINT OF CARE TEST O RDERAJOHN Performing Organization Address [facility] de Phone Number [facility] [place] [address] * POCT Glucose (03/01/2019 4:04 AM EST) Glucose, POC 145 65 - 199 mg/dL [facility] Comment: Supplemental ranges: <140 mg/dL before meals <180 mg/dL all other times of the day Blood specimen (specimen) 03/01/2019 4:04 AM EST 03/01/2019 4:04 AM EST Jaxon Fontaine MD POINT OF CARE TEST O RDERABLES Performing Organization Address [facility] de Phone Number [facility] [place] [address] * Differential, Automated (03/01/2019 4:04 AM EST) Neutrophil % 55.7 % [facility] Neutrophil Absolute 4.99 1.70 - 6.10 x10(3)/[facility] Lymph % 32.0 % [facility] Lymphocytes Abs 2.9 0.9 - 3.2 x10(3)/[facility] Monocyte % 7.3 % [facility] Monocyte Abs 0.6 0.3 - 0.9 x10(3)/[facility] Eos % 4.1 % [facility] Eosinophils Abs 0.4 0.0 - 0.4 x10(3)/[facility] Basophil % 0.7 % [facility] Baso Absolute 0.1 0.0 - 0.1 x10(3)/[facility] Immature Gran % 0.20 % [facility] Comment: Immature granulocytes(IG's)percentage and absolute count will include metamyelocytes, myelocytes, and promyelocytes. Blood smears from CBCs yielding IG's will be scanned manually for concordance. If this scan disagrees with the automated IG or if promyelocytes are noted, a manual differential will be performed. Immature Gran Absolute 0.02 0.00 - 0.04 x10(3)/[facility] Blood specimen (specimen) 03/01/2019 4:04 AM EST 03/01/2019 4:19 AM EST Narrative Resulting Agency Comment Spec In Lab Emeli Wall MD HEMATOLOGY ORDERAB LES Performing Organization Address City/State/[facility] Co de Phone Number [facility] [place] [address] * (ABNORMAL) Hemogram (03/01/2019 4:04 AM EST) White Blood Cell 9.0 4.0 - 9.5 x10(3)/mc L [facility] Red Blood Cell 3.48(L) 4.00 - 5.21 x10(6)/mc L [facility] Hemoglobin 10.1(L) 11.7 - 15.5 gm/dL [facility] Hematocrit 33.1(L) 35.7 - 45.8 % [facility] Mean Cell Volume 95.1(H) 82.6 - 94.4 fL [facility] Mean Cell Hemoglobin 29.0 27.1 - 32.0 pg [facility] Mean Cell Hemoglobin Concentration 30.5(L) 31.7 - 35.0 gm/dL [facility] Platelet 276 145 - 357 x10(3)/mc L [facility] RDW Standard Deviation 47.8(H) 37.0 - 46.0 fL [facility] RDW coefficient of variation 13.6 11.5 - 14.1 % [facility] Mean Platelet Volume 10.5 7.6 - 12.9 fL [facility] NRBC% auto 0.0 % [facility] NRBC Absolute 0.000 0.000 - 0.000 x10(3)/mc L [facility] Blood specimen (specimen) 03/01/2019 4:04 AM EST 03/01/2019 4:19 AM EST Narrative Resulting Agency Comment Spec In Lab Emeli Wall MD HEMATOLOGY ORDERAB LES Performing Organization Address City/State/[facility] Co de Phone Number [facility] [place] [address] * (ABNORMAL) BMP w/fasting Glucose (03/01/2019 4:04 AM EST) Glucose Fasting 145(H) 65 - 99 mg/dL [facility] Comment: ?Fasting* Glucose Interpretive [...] of Diabetes Mellitus, Position Statement from the [place] [employer]. ??Diabetes Care, Volume 33, Supplement 1, Apr 2009 Blood Urea Nitrogen 38(H) 8 - 18 mg/dL [facility] Creatinine 1.83(H) 0.70 - 1.20 mg/dL [facility] Sodium 140 135 - 145 mmol/L [facility] Potassium 4.8 3.5 - 5.0 mmol/L [facility] Comment: Please note: ??Patients with WBC >100,000 may have falsely elevated Potassium levels. ??For accurate Potassium quantification in these patients send serum separator tube (gold top) for subsequent determinations. ??Contact the Clinical Chemistry Laboratory if there are any questions. Chloride 104 98 - 107 mmol/L [facility] Carbon Dioxide 24 22 - 31 mmol/L [facility] Anion Gap 12 5 - 15 mmol/L [facility] Calcium 9.1 8.5 - 10.5 mg/dL [facility] Est Glomerular Filtration Rate 29(L) >=60 mL/min/1. 73 m?? [facility] Comment: The eGFR was calculated using the CKD-EPI equation. As with all creatinine based estimates of kidney function, eGFR values calculated with the CKD-EPI equation are not accurate in patients with acute kidney failure, extremes of body mass or the acutely ill. [email or web address] eGFR 34(L) >=60 mL/min/1. 73 m?? [facility] Comment: The eGFR was calculated using the CKD-EPI equation. As with all creatinine based estimates of kidney function, eGFR values calculated with the CKD-EPI equation are not accurate in patients with acute kidney failure, extremes of body mass or the acutely ill. [email or web address] Blood specimen (specimen) 03/01/2019 4:04 AM EST 03/01/2019 4:19 AM EST Narrative Resulting Agency Comment Spec In Lab Jaxon Fontaine MD CHEMISTRY ORDERABLES [facility] [place] [address] * POCT Glucose (03/01/2019 12:12 AM EST) Glucose, POC 132 65 - 199 mg/dL [facility] Comment: Supplemental ranges: <140 mg/dL before meals <180 mg/dL all other times of the day Blood specimen (specimen) 03/01/2019 12:12 AM EST 03/01/2019 12:12 AM EST Jaxon Fontaine MD POINT OF CARE TEST O RDERABLES Performing Organization Address [facility] Co de Phone Number [facility] [place] [address] * POCT Glucose (02/28/2019 8:01 PM EST) Glucose, POC 152 65 - 199 mg/dL [facility] Comment: Supplemental ranges: <140 mg/dL before meals <180 mg/dL all other times of the day Blood specimen (specimen) 02/28/2019 8:01 PM EST 02/28/2019 8:01 PM EST Jaxon Fontaine MD POINT OF CARE TEST O RDERABLES Performing Organization Address [facility] de Phone Number [facility] [place] [address] * Differential, Automated (02/28/2019 3:06 AM EST) [facility] Neutrophil % 51.2 % [facility] Neutrophil Absolute 3.90 1.70 - 6.10 x10(3)/[facility] Lymph % 37.0 % [facility] Lymphocytes Abs 2.8 0.9 - 3.2 x10(3)/[facility] Monocyte % 7.4 % [facility] Monocyte Abs 0.6 0.3 - 0.9 x10(3)/[facility] Eos % 3.3 % [facility] Eosinophils Abs 0.2 0.0 - 0.4 x10(3)/[facility] Basophil % 0.8 % [facility] Baso Absolute 0.1 0.0 - 0.1 x10(3)/[facility] Immature Gran % 0.30 % [facility] Comment: Immature granulocytes(IG's)percentage and absolute count will include metamyelocytes, myelocytes, and promyelocytes. Blood smears from CBCs yielding IG's will be scanned manually for concordance. If this scan disagrees with the automated IG or if promyelocytes are noted, a manual differential will be performed. Immature Gran Absolute 0.02 0.00 - 0.04 x10(3)/[facility] Blood specimen (specimen) 02/28/2019 3:06 AM EST 02/28/2019 3:25 AM EST Narrative Resulting Agency Comment Spec In Lab Emeli Wall MD HEMATOLOGY ORDERAB LES [facility] [place] [address] * (ABNORMAL) Hemogram (02/28/2019 3:06 AM EST) White Blood Cell 7.6 4.0 - 9.5 x10(3)/[facility] Red Blood Cell 3.46(L) 4.00 - 5.21 x10(6)/ L [facility] Hemoglobin 10.0(L) 11.7 - 15.5 gm/dL [facility] Hematocrit 32.5(L) 35.7 - 45.8 % [facility] Mean Cell Volume 93.9 82.6 - 94.4 fL [facility] Mean Cell Hemoglobin 28.9 27.1 - 32.0 pg [facility] Mean Cell Hemoglobin Concentration 30.8(L) 31.7 - 35.0 gm/dL [facility] Platelet 281 145 - 357 x10(3)/ L [facility] RDW Standard Deviation 46.4(H) 37.0 - 46.0 fL [facility] RDW coefficient of variation 13.5 11.5 - 14.1 % [facility] Mean Platelet Volume 10.6 7.6 - 12.9 fL [facility] NRBC% auto 0.0 % [facility] NRBC Absolute 0.000 0.000 - 0.000 x10(3)/mc L [facility] Blood specimen (specimen) 02/28/2019 3:06 AM EST 02/28/2019 3:25 AM EST Narrative Resulting Agency Comment Spec In Lab Emeli Wall MD HEMATOLOGY ORDERAB LES Performing Organization Address City/State/[facility] Co de Phone Number [facility] [place] [address] * (ABNORMAL) BMP w/fasting Glucose (02/28/2019 3:06 AM EST) Glucose Fasting 245(H) 65 - 99 mg/dL [facility] Comment: ?Fasting* Glucose Interpretive [...] of Diabetes Mellitus, Position Statement from the [place] [employer]. ??Diabetes Care, Volume 33, Supplement 1, Apr 2009 Blood Urea Nitrogen 42(H) 8 - 18 mg/dL [facility] Creatinine 2.20(H) 0.70 - 1.20 mg/dL [facility] Sodium 135 135 - 145 mmol/L [facility] Potassium 4.6 3.5 - 5.0 mmol/L [facility] Comment: Please note: ??Patients with WBC >100,000 may have falsely elevated Potassium levels. ??For accurate Potassium quantification in these patients send serum separator tube (gold top) for subsequent determinations. ??Contact the Clinical Chemistry Laboratory if there are any questions. Chloride 100 98 - 107 mmol/L [facility] Carbon Dioxide 23 22 - 31 mmol/L [facility] Anion Gap 12 5 - 15 mmol/L [facility] Calcium 8.9 8.5 - 10.5 mg/dL [facility] Est Glomerular Filtration Rate 24(L) >=60 mL/min/1. 73 m?? [facility] Comment: The eGFR was calculated using the CKD-EPI equation. As with all creatinine based estimates of kidney function, eGFR values calculated with the CKD-EPI equation are not accurate in patients with acute kidney failure, extremes of body mass or the acutely ill. [email or web address] eGFR 27(L) >=60 mL/min/1. 73 m?? [facility] Comment: The eGFR was calculated using the CKD-EPI equation. As with all creatinine based estimates of kidney function, eGFR values calculated with the CKD-EPI equation are not accurate in patients with acute kidney failure, extremes of body mass or the acutely ill. [email or web address] Blood specimen (specimen) 02/28/2019 3:06 AM EST 02/28/2019 3:25 AM EST Narrative Resulting Agency Comment Spec In Lab Jaxon Fontaine MD CHEMISTRY ORDERABLES [facility] [place] [address] * Differential, Automated (02/27/2019 4:27 AM EST) Neutrophil % 45.3 % [facility] Neutrophil Absolute 3.00 1.70 - 6.10 x10(3)/[facility] Lymph % 42.1 % [facility] Lymphocytes Abs 2.8 0.9 - 3.2 x10(3)/[facility] Monocyte % 7.0 % [facility] Monocyte Abs 0.5 0.3 - 0.9 x10(3)/[facility] Eos % 4.2 % [facility] Eosinophils Abs 0.3 0.0 - 0.4 x10(3)/[facility] Basophil % 1.1 % [facility] Baso Absolute 0.1 0.0 - 0.1 x10(3)/[facility] Immature Gran % 0.30 % [facility] Comment: Immature granulocytes(IG's)percentage and absolute count will include metamyelocytes, myelocytes, and promyelocytes. Blood smears from CBCs yielding IG's will be scanned manually for concordance. If this scan disagrees with the automated IG or if promyelocytes are noted, a manual differential will be performed. Immature Gran Absolute 0.02 0.00 - 0.04 x10(3)/[facility] Blood specimen (specimen) 02/27/2019 4:27 AM EST 02/27/2019 4:57 AM EST Narrative Resulting Agency Comment Spec In Lab Emeli Wall MD HEMATOLOGY ORDERAB LES [facility] [place] [address] * (ABNORMAL) Hemogram (02/27/2019 4:27 AM EST) White Blood Cell 6.6 4.0 - 9.5 x10(3)/mc L [facility] Red Blood Cell 3.52(L) 4.00 - 5.21 x10(6)/ L [facility] Hemoglobin 10.3(L) 11.7 - 15.5 gm/dL [facility] Hematocrit 32.4(L) 35.7 - 45.8 % [facility] Mean Cell Volume 92.0 82.6 - 94.4 fL [facility] Mean Cell Hemoglobin 29.3 27.1 - 32.0 pg [facility] Mean Cell Hemoglobin Concentration 31.8 31.7 - 35.0 gm/dL [facility] Platelet 269 145 - 357 x10(3)/mc L [facility] RDW Standard Deviation 45.5 37.0 - 46.0 fL [facility] RDW coefficient of variation 13.4 11.5 - 14.1 % [facility] Mean Platelet Volume 10.2 7.6 - 12.9 fL [facility] NRBC% auto 0.0 % [facility] NRBC Absolute 0.000 0.000 - 0.000 x10(3)/mc L [facility] Blood specimen (specimen) 02/27/2019 4:27 AM EST 02/27/2019 4:57 AM EST Narrative Resulting Agency Comment Spec In Lab Emeli Wall MD HEMATOLOGY ORDERAB LES Performing Organization Address City/State/[facility] Co de Phone Number [facility] [place] [address] * (ABNORMAL) BMP w/fasting Glucose (02/27/2019 4:27 AM EST) Glucose Fasting 191(H) 65 - 99 mg/dL [facility] Comment: ?Fasting* Glucose Interpretive [...] of Diabetes Mellitus, Position Statement from the [place] [employer]. ??Diabetes Care, Volume 33, Supplement 1, Apr 2009 Blood Urea Nitrogen 34(H) 8 - 18 mg/dL [facility] Creatinine 1.94(H) 0.70 - 1.20 mg/dL [facility] Sodium 138 135 - 145 mmol/L [facility] Potassium 5.2(H) 3.5 - 5.0 mmol/L [facility] Comment: Please note: ??Patients with WBC >100,000 may have falsely elevated Potassium levels. ??For accurate Potassium quantification in these patients send serum separator tube (gold top) for subsequent determinations. ??Contact the Clinical Chemistry Laboratory if there are any questions. Chloride 102 98 - 107 mmol/L [facility] Carbon Dioxide 25 22 - 31 mmol/L [facility] Anion Gap 11 5 - 15 mmol/L [facility] Calcium 9.0 8.5 - 10.5 mg/dL [facility] Est Glomerular Filtration Rate 27(L) >=60 mL/min/1. 73 m?? [facility] Comment: The eGFR was calculated using the CKD-EPI equation. As with all creatinine based estimates of kidney function, eGFR values calculated with the CKD-EPI equation are not accurate in patients with acute kidney failure, extremes of body mass or the acutely ill. [email or web address] eGFR 32(L) >=60 mL/min/1. 73 m?? [facility] Comment: The eGFR was calculated using the CKD-EPI equation. As with all creatinine based estimates of kidney function, eGFR values calculated with the CKD-EPI equation are not accurate in patients with acute kidney failure, extremes of body mass or the acutely ill. [email or web address] Blood specimen (specimen) 02/27/2019 4:27 AM EST 02/27/2019 4:57 AM EST Narrative Resulting Agency Comment Spec In Lab Jaxon Fontaine MD CHEMISTRY ORDERABLES [facility] [place] [address] * Differential, Automated (02/26/2019 4:43 AM EST) Pathologist [facility] Neutrophil % 47.9 % [facility] Neutrophil Absolute 3.27 1.70 - 6.10 x10(3)/[facility] Lymph % 40.3 % [facility] Lymphocytes Abs 2.8 0.9 - 3.2 x10(3)/[facility] Monocyte % 6.2 % [facility] Monocyte Abs 0.4 0.3 - 0.9 x10(3)/[facility] Eos % 4.3 % [facility] Eosinophils Abs 0.3 0.0 - 0.4 x10(3)/[facility] Basophil % 1.0 % [facility] Baso Absolute 0.1 0.0 - 0.1 x10(3)/[facility] Immature Gran % 0.30 % [facility] Comment: Immature granulocytes(IG's)percentage and absolute count will include metamyelocytes, myelocytes, and promyelocytes. Blood smears from CBCs yielding IG's will be scanned manually for concordance. If this scan disagrees with the automated IG or if promyelocytes are noted, a manual differential will be performed. Immature Gran Absolute 0.02 0.00 - 0.04 x10(3)/[facility] Blood specimen (specimen) 02/26/2019 4:43 AM EST 02/26/2019 5:06 AM EST Narrative Resulting Agency Comment Spec In Lab Emeli Wall MD HEMATOLOGY ORDERAB LES [facility] [place] [address] * (ABNORMAL) Hemogram (02/26/2019 4:43 AM EST) [facility] White Blood Cell 6.8 4.0 - 9.5 x10(3)/mc L [facility] Red Blood Cell 3.68(L) 4.00 - 5.21 x10(6)/mc L [facility] Hemoglobin 10.9(L) 11.7 - 15.5 gm/dL [facility] Hematocrit 34.1(L) 35.7 - 45.8 % [facility] Mean Cell Volume 92.7 82.6 - 94.4 fL [facility] Mean Cell Hemoglobin 29.6 27.1 - 32.0 pg [facility] Mean Cell Hemoglobin Concentration 32.0 31.7 - 35.0 gm/dL [facility] Platelet 311 145 - 357 x10(3)/mc L [facility] RDW Standard Deviation 44.8 37.0 - 46.0 [facility] RDW coefficient of variation 13.2 11.5 - 14.1 % [facility] Mean Platelet Volume 10.1 7.6 - 12.9 fL [facility] NRBC% auto 0.0 % [facility] NRBC Absolute 0.000 0.000 - 0.000 x10(3)/mc L [facility] Blood specimen (specimen) 02/26/2019 4:43 AM EST 02/26/2019 5:06 AM EST Narrative Resulting Agency Comment Spec In Lab Emeli Wall MD HEMATOLOGY ORDERAB LES [facility] [place] [address] * (ABNORMAL) BMP w/fasting Glucose (02/26/2019 4:43 AM EST) Glucose Fasting 74 65 - 99 mg/dL [facility] Comment: ?Fasting* Glucose Interpretive [...] of Diabetes Mellitus, Position Statement from the [place] [employer]. ??Diabetes Care, Volume 33, Supplement 1, Apr 2009 Blood Urea Nitrogen 22(H) 8 - 18 mg/dL [facility] Creatinine 1.44(H) 0.70 - 1.20 mg/dL [facility] Sodium 139 135 - 145 mmol/L [facility] Potassium 4.6 3.5 - 5.0 mmol/L [facility] Comment: Please note: ??Patients with WBC >100,000 may have falsely elevated Potassium levels. ??For accurate Potassium quantification in these patients send serum separator tube (gold top) for subsequent determinations. ??Contact the Clinical Chemistry Laboratory if there are any questions. Chloride 103 98 - 107 mmol/L [facility] Carbon Dioxide 22 22 - 31 mmol/L [facility] Anion Gap 14 5 - 15 mmol/L [facility] Calcium 9.0 8.5 - 10.5 mg/dL [facility] Est Glomerular Filtration Rate 39(L) >=60 mL/min/1. 73 m?? [facility] Comment: The eGFR was calculated using the CKD-EPI equation. As with all creatinine based estimates of kidney function, eGFR values calculated with the CKD-EPI equation are not accurate in patients with acute kidney failure, extremes of body mass or the acutely ill. [email or web address] eGFR 46(L) >=60 mL/min/1. 73 m?? [facility] Comment: The eGFR was calculated using the CKD-EPI equation. As with all creatinine based estimates of kidney function, eGFR values calculated with the CKD-EPI equation are not accurate in patients with acute kidney failure, extremes of body mass or the acutely ill. [email or web address] Blood specimen (specimen) 02/26/2019 4:43 AM EST 02/26/2019 5:06 AM EST Narrative Resulting Agency Comment Spec In Lab Jaxon Fontaine MD CHEMISTRY ORDERABLES Performing Organization Address City/[facility]/[place] [address] * Differential, Automated (02/25/2019 3:34 AM EST) Neutrophil % 46.3 % [facility] Neutrophil Absolute 3.02 1.70 - 6.10 x10(3)/[facility] Lymph % 39.2 % [facility] Lymphocytes Abs 2.6 0.9 - 3.2 x10(3)/[facility] Monocyte % 7.1 % [facility] Monocyte Abs 0.5 0.3 - 0.9 x10(3)/[facility] Eos % 6.1 % [facility] Eosinophils Abs 0.4 0.0 - 0.4 x10(3)/[facility] Basophil % 1.1 % [facility] Baso Absolute 0.1 0.0 - 0.1 x10(3)/[facility] Immature Gran % 0.20 % [facility] Comment: Immature granulocytes(IG's)percentage and absolute count will include metamyelocytes, myelocytes, and promyelocytes. Blood smears from CBCs yielding IG's will be scanned manually for concordance. If this scan disagrees with the automated IG or if promyelocytes are noted, a manual differential will be performed. Immature Gran Absolute 0.01 0.00 - 0.04 x10(3)/[facility] Blood specimen (specimen) 02/25/2019 3:34 AM EST 02/25/2019 3:59 AM EST Narrative Resulting Agency Comment Spec In Lab Servando Nolan MD HEMATOLOGY ORDERABLE S Performing Organization Address City/[facility]/ZIP Co [place] [address] * (ABNORMAL) Hemogram (02/25/2019 3:34 AM EST) [facility] White Blood Cell 6.5 4.0 - 9.5 x10(3)/[facility] Red Blood Cell 3.55(L) 4.00 - 5.21 x10(6)/[facility] Hemoglobin 10.4(L) 11.7 - 15.5 gm/dL [facility] Hematocrit 33.3(L) 35.7 - 45.8 % [facility] Mean Cell Volume 93.8 82.6 - 94.4 fL [facility] Mean Cell Hemoglobin 29.3 27.1 - 32.0 pg [facility] Mean Cell Hemoglobin Concentration 31.2(L) 31.7 - 35.0 gm/dL [facility] Platelet 322 145 - 357 x10(3)/[facility] RDW Standard Deviation 45.0 37.0 - 46.0 [facility] RDW coefficient of variation 13.1 11.5 - 14.1 % [facility] Mean Platelet Volume 10.4 7.6 - 12.9 fL [facility] NRBC% auto 0.0 % [facility] NRBC Absolute 0.000 0.000 - 0.000 x10(3)/[facility] Blood specimen (specimen) 02/25/2019 3:34 AM EST 02/25/2019 3:59 AM EST Narrative Resulting Agency Comment Spec In Lab Servando Nolan MD HEMATOLOGY ORDERABLE S [facility] [place] [address] * (ABNORMAL) BMP w/fasting Glucose (02/25/2019 3:34 AM EST) [facility] Glucose Fasting 205(H) 65 - 99 mg/dL [facility] Comment: ?Fasting* Glucose Interpretive [...] of Diabetes Mellitus, Position Statement from the [place] [employer]. ??Diabetes Care, Volume 33, Supplement 1, Apr 2009 Blood Urea Nitrogen 25(H) 8 - 18 mg/dL [facility] Creatinine 1.63(H) 0.70 - 1.20 mg/dL [facility] Sodium 140 135 - 145 mmol/L [facility] Potassium 4.7 3.5 - 5.0 mmol/L [facility] Comment: Please note: ??Patients with WBC >100,000 may have falsely elevated Potassium levels. ??For accurate Potassium quantification in these patients send serum separator tube (gold top) for subsequent determinations. ??Contact the Clinical Chemistry Laboratory if there are any questions. Chloride 105 98 - 107 mmol/L [facility] Carbon Dioxide 24 22 - 31 mmol/L [facility] Anion Gap 11 5 - 15 mmol/L [facility] Calcium 9.1 8.5 - 10.5 mg/dL [facility] Est Glomerular Filtration Rate 34(L) >=60 mL/min/1. 73 m?? [facility] Comment: The eGFR was calculated using the CKD-EPI equation. As with all creatinine based estimates of kidney function, eGFR values calculated with the CKD-EPI equation are not accurate in patients with acute kidney failure, extremes of body mass or the acutely ill. [email or web address] eGFR 39(L) >=60 mL/min/1. 73 m?? [facility] Comment: The eGFR was calculated using the CKD-EPI equation. As with all creatinine based estimates of kidney function, eGFR values calculated with the CKD-EPI equation are not accurate in patients with acute kidney failure, extremes of body mass or the acutely ill. [email or web address] Blood specimen (specimen) 02/25/2019 3:34 AM EST 02/25/2019 3:59 AM EST Narrative Resulting Agency Comment Spec In Lab Jaxon Fontaine MD CHEMISTRY ORDERABLES [facility] [place] [address] * Differential, Automated (02/24/2019 3:52 AM EST) Neutrophil % 40.8 % [facility] Neutrophil Absolute 2.66 1.70 - 6.10 x10(3)/[facility] Lymph % 44.1 % [facility] Lymphocytes Abs 2.9 0.9 - 3.2 x10(3)/[facility] Monocyte % 7.4 % [facility] Monocyte Abs 0.5 0.3 - 0.9 x10(3)/[facility] Eos % 6.6 % [facility] Eosinophils Abs 0.4 0.0 - 0.4 x10(3)/[facility] Basophil % 0.9 % [facility] Baso Absolute 0.1 0.0 - 0.1 x10(3)/[facility] Immature Gran % 0.20 % [facility] Comment: Immature granulocytes(IG's)percentage and absolute count will include metamyelocytes, myelocytes, and promyelocytes. Blood smears from CBCs yielding IG's will be scanned manually for concordance. If this scan disagrees with the automated IG or if promyelocytes are noted, a manual differential will be performed. Immature Gran Absolute 0.01 0.00 - 0.04 x10(3)/mcL [facility] Blood specimen (specimen) 02/24/2019 3:52 AM EST 02/24/2019 4:25 AM EST Narrative Resulting Agency Comment Spec In Lab Seravndo Nolan MD HEMATOLOGY ORDERABLE S [facility] [place] [address] * (ABNORMAL) Hemogram (02/24/2019 3:52 AM EST) White Blood Cell 6.5 4.0 - 9.5 x10(3)/[facility] [facility] LABORATORY Red Blood Cell 3.58(L) 4.00 - 5.21 x10(6)/[facility] LABORATORY Hemoglobin 10.6(L) 11.7 - 15.5 gm/dL [facility] LABORATORY Hematocrit 33.9(L) 35.7 - 45.8 % [facility] Mean Cell Volume 94.7(H) 82.6 - 94.4 fL [facility] Mean Cell Hemoglobin 29.6 27.1 - 32.0 pg [facility] Mean Cell Hemoglobin Concentration 31.3(L) 31.7 - 35.0 gm/dL [facility] LABORATORY Platelet 316 145 - 357 x10(3)/[facility] LABORATORY RDW Standard Deviation 45.4 37.0 - 46.0 [facility] LABORATORY RDW coefficient of variation 13.2 11.5 - 14.1 % [facility]OR[facility] Mean Platelet Volume 10.3 7.6 - 12.9 fL [facility] NRBC% auto 0.0 % [facility] LABORATORY NRBC Absolute 0.000 0.000 - 0.000 x10(3)/[facility] LABORATORY Blood specimen (specimen) 02/24/2019 3:52 AM EST 02/24/2019 4:25 AM EST Narrative Resulting Agency Comment Spec In Lab Servando Nolan MD HEMATOLOGY ORDERABLE S [facility] [place] [address] * (ABNORMAL) BMP w/fasting Glucose (02/24/2019 3:52 AM EST) Glucose Fasting 133(H) 65 - 99 mg/dL [facility] Comment: ?Fasting* Glucose Interpretive [...] of Diabetes Mellitus, Position Statement from the [place] [employer]. ??Diabetes Care, Volume 33, Supplement 1, Apr 2009 Blood Urea Nitrogen 21(H) 8 - 18 mg/dL [facility] Creatinine 1.69(H) 0.70 - 1.20 mg/dL [facility] Sodium 141 135 - 145 mmol/L [facility] Potassium 4.7 3.5 - 5.0 mmol/L [facility]ORY Comment: Please note: ??Patients with WBC >100,000 may have falsely elevated Potassium levels. ??For accurate Potassium quantification in these patients send serum separator tube (gold top) for subsequent determinations. ??Contact the Clinical Chemistry Laboratory if there are any questions. Chloride 107 98 - 107 mmol/L [facility] Carbon Dioxide 23 22 - 31 mmol/L [facility] Anion Gap 11 5 - 15 mmol/L [facility] Calcium 8.9 8.5 - 10.5 mg/dL [facility] Est Glomerular Filtration Rate 32(L) >=60 mL/min/1. 73 m?? [facility] Comment: The eGFR was calculated using the CKD-EPI equation. As with all creatinine based estimates of kidney function, eGFR values calculated with the CKD-EPI equation are not accurate in patients with acute kidney failure, extremes of body mass or the acutely ill. [email or web address] eGFR 38(L) >=60 mL/min/1. 73 m?? [facility] LAB[facility]ATORY Comment: The eGFR was calculated using the CKD-EPI equation. As with all creatinine based estimates of kidney function, eGFR values calculated with the CKD-EPI equation are not accurate in patients with acute kidney failure, extremes of body mass or the acutely ill. [email or web address] Blood specimen (specimen) 02/24/2019 3:52 AM EST 02/24/2019 4:25 AM EST Narrative Resulting Agency Comment Spec In Lab Jaxon Fontaine MD CHEMISTRY ORDERABLES Performing Organization Address City/[facility]/ZIP Co de Phone Number [facility] [place] [address] * (ABNORMAL) POCT Glucose (02/23/2019 3:43 PM EST) [facility] Glucose, POC 216(H) 65 - 199 mg/dL [facility] Comment: Supplemental ranges: <140 mg/dL before meals <180 mg/dL all other times of the day Blood specimen (specimen) 02/23/2019 3:43 PM EST 02/23/2019 3:43 PM EST Jaxon Fontaine MD POINT OF CARE TEST O RDERABLES Performing Organization Address City/[facility]/ZIP Co de Phone Number [facility] [place] [address] * Differential, Automated (02/23/2019 3:22 AM EST) [facility] Neutrophil % 47.1 % [facility] LABORATORY Neutrophil Absolute 2.82 1.70 - 6.10 x10(3)/mcL [facility] LABORATORY Lymph % 37.5 % [facility] LABORATORY Lymphocytes Abs 2.2 0.9 - 3.2 x10(3)/[facility] LABORATORY Monocyte % 6.7 % [facility] LABORATORY Monocyte Abs 0.4 0.3 - 0.9 x10(3)/[facility] LABORATORY Eos % 7.0 % [facility] LABOR[facility] Eosinophils Abs 0.4 0.0 - 0.4 x10(3)/[facility] LABORATORY Basophil % 1.5 % [facility] Baso Absolute 0.1 0.0 - 0.1 x10(3)/[facility] LABORATORY Immature Gran % 0.20 % [facility] Comment: Immature granulocytes(IG's)percentage and absolute count will include metamyelocytes, myelocytes, and promyelocytes. Blood smears from CBCs yielding IG's will be scanned manually for concordance. If this scan disagrees with the automated IG or if promyelocytes are noted, a manual differential will be performed. Immature Gran Absolute 0.01 0.00 - 0.04 x10(3)/[facility] LABORATORY Blood specimen (specimen) 02/23/2019 3:22 AM EST 02/23/2019 3:48 AM EST Narrative Resulting Agency Comment Spec In Lab Servando Nolan MD HEMATOLOGY ORDERABLE S Performing Organization Address City/State/[facility] Co de Phone Number [facility] [place] [address] * (ABNORMAL) Hemogram (02/23/2019 3:22 AM EST) White Blood Cell 6.0 4.0 - 9.5 x10(3)/mc L [facility]ORAT[facility] Red Blood Cell 3.74(L) 4.00 - 5.21 x10(6)/mc L [facility]ORATORY Hemoglobin 10.8(L) 11.7 - 15.5 gm/dL [facility] Hematocrit 35.4(L) 35.7 - 45.8 % [facility] Mean Cell Volume 94.7(H) 82.6 - 94.4 fL [facility] Mean Cell Hemoglobin 28.9 27.1 - 32.0 pg [facility] Mean Cell Hemoglobin Concentration 30.5(L) 31.7 - 35.0 gm/dL [facility] Platelet 353 145 - 357 x10(3)/mc L [facility] RDW Standard Deviation 46.1(H) 37.0 - 46.0 fL [facility] RDW coefficient of variation 13.4 11.5 - 14.1 % [facility] Mean Platelet Volume 10.0 7.6 - 12.9 fL [facility] NRBC% auto 0.0 % [facility] NRBC Absolute 0.000 0.000 - 0.000 x10(3)/mc L [facility] Blood specimen (specimen) 02/23/2019 3:22 AM EST 02/23/2019 3:48 AM EST Narrative Resulting Agency Comment Spec In Lab Servando Nolan MD HEMATOLOGY ORDERABLE S [facility] [place] [address] * (ABNORMAL) BMP w/fasting Glucose (02/23/2019 3:22 AM EST) Glucose Fasting 95 65 - 99 mg/dL [facility] Comment: ?Fasting* Glucose Interpretive [...] of Diabetes Mellitus, Position Statement from the [place] [employer]. ??Diabetes Care, Volume 33, Supplement 1, Apr 2009 Blood Urea Nitrogen 18 8 - 18 mg/dL [facility] Creatinine 1.36(H) 0.70 - 1.20 mg/dL [facility] Sodium 141 135 - 145 mmol/L [facility] Potassium 4.7 3.5 - 5.0 mmol/L [facility] Comment: Please note: ??Patients with WBC >100,000 may have falsely elevated Potassium levels. ??For accurate Potassium quantification in these patients send serum separator tube (gold top) for subsequent determinations. ??Contact the Clinical Chemistry Laboratory if there are any questions. Chloride 106 98 - 107 mmol/L [facility] Carbon Dioxide 23 22 - 31 mmol/L [facility] Anion Gap 12 5 - 15 mmol/L [facility] Calcium 9.1 8.5 - 10.5 mg/dL [facility] Est Glomerular Filtration Rate 42(L) >=60 mL/min/1. 73 m?? [facility] Comment: The eGFR was calculated using the CKD-EPI equation. As with all creatinine based estimates of kidney function, eGFR values calculated with the CKD-EPI equation are not accurate in patients with acute kidney failure, extremes of body mass or the acutely ill. [email or web address] eGFR 49(L) >=60 mL/min/1. 73 m?? [facility] Comment: The eGFR was calculated using the CKD-EPI equation. As with all creatinine based estimates of kidney function, eGFR values calculated with the CKD-EPI equation are not accurate in patients with acute kidney failure, extremes of body mass or the acutely ill. [email or web address] Blood specimen (specimen) 02/23/2019 3:22 AM EST 02/23/2019 3:48 AM EST Narrative Resulting Agency Comment Spec In Lab Jaxon Fontaine MD CHEMISTRY ORDERABLES [facility] [place] [address] * POCT Glucose (02/22/2019 8:57 AM EST) Pathologist [facility] Glucose, POC 67 65 - 199 mg/dL [facility] Comment: Supplemental ranges: <140 mg/dL before meals <180 mg/dL all other times of the day Blood specimen (specimen) 02/22/2019 8:57 AM EST 02/22/2019 8:57 AM EST Jaxon Fontaine MD POINT [place] [address] * Differential, Automated (02/22/2019 3:41 AM EST) [facility] Neutrophil % 50.4 % [facility]OR[facility] Neutrophil Absolute 3.04 1.70 - 6.10 x10(3)/[facility] LABORATORY Lymph % 33.4 % [facility] Lymphocytes Abs 2.0 0.9 - 3.2 x10(3)/[facility] LABORATORY Monocyte % 7.5 % [facility] Monocyte Abs 0.4 0.3 - 0.9 x10(3)/[facility] LABORATORY Eos % 7.3 % [facility] Eosinophils Abs 0.4 0.0 - 0.4 x10(3)/[facility] LABORATORY Basophil % 1.2 % [facility] Baso Absolute 0.1 0.0 - 0.1 x10(3)/[facility] LABORATORY Immature Gran % 0.20 % [facility] Comment: Immature granulocytes(IG's)percentage and absolute count will include metamyelocytes, myelocytes, and promyelocytes. Blood smears from CBCs yielding IG's will be scanned manually for concordance. If this scan disagrees with the automated IG or if promyelocytes are noted, a manual differential will be performed. Immature Gran Absolute 0.01 0.00 - 0.04 x10(3)/[facility] LABORATORY Blood specimen (specimen) 02/22/2019 3:41 AM EST 02/22/2019 4:17 AM EST Narrative Resulting Agency Comment Spec In Lab Zenobia Quijano MD HEMATOLOGY ORDERABLE S [facility] [place] [address] * (ABNORMAL) Hemogram (02/22/2019 3:41 AM EST) White Blood Cell 6.0 4.0 - 9.5 x10(3)/[facility] LABORATORY Red Blood Cell 3.58(L) 4.00 - 5.21 x10(6)/[facility] LABORATORY Hemoglobin 10.2(L) 11.7 - 15.5 gm/dL [facility] Hematocrit 33.5(L) 35.7 - 45.8 % [facility] Mean Cell Volume 93.6 82.6 - 94.4 fL [facility] Mean Cell Hemoglobin 28.5 27.1 - 32.0 pg [facility] Mean Cell Hemoglobin Concentration 30.4(L) 31.7 - 35.0 gm/dL [facility] Platelet 351 145 - 357 x10(3)/[facility] LABORATORY RDW Standard Deviation 45.7 37.0 - 46.0 [facility] LABORATORY RDW coefficient of variation 13.2 11.5 - 14.1 % [facility] Mean Platelet Volume 10.1 7.6 - 12.9 fL [facility] NRBC% auto 0.0 % [facility] NRBC Absolute 0.000 0.000 - 0.000 x10(3)/[facility] LABORATORY Blood specimen (specimen) 02/22/2019 3:41 AM EST 02/22/2019 4:17 AM EST Narrative Resulting Agency Comment Spec In Lab Zenobia Quijano MD HEMATOLOGY ORDERABLE S [facility] [place] [address] * (ABNORMAL) BMP w/fasting Glucose (02/22/2019 3:41 AM EST) Glucose Fasting 125(H) 65 - 99 mg/dL [facility] Comment: ?Fasting* Glucose Interpretive [...] of Diabetes Mellitus, Position Statement from the [place] [employer]. ??Diabetes Care, Volume 33, Supplement 1, Apr 2009 Blood Urea Nitrogen 21(H) 8 - 18 mg/dL [facility] Creatinine 1.48(H) 0.70 - 1.20 mg/dL [facility] Sodium 141 135 - 145 mmol/L [facility] Potassium 4.9 3.5 - 5.0 mmol/L [facility] Comment: Please note: ??Patients with WBC >100,000 may have falsely elevated Potassium levels. ??For accurate Potassium quantification in these patients send serum separator tube (gold top) for subsequent determinations. ??Contact the Clinical Chemistry Laboratory if there are any questions. Chloride 106 98 - 107 mmol/L [facility] Carbon Dioxide 23 22 - 31 mmol/L [facility] Anion Gap 12 5 - 15 mmol/L [facility] Calcium 8.7 8.5 - 10.5 mg/dL [facility] Est Glomerular Filtration Rate 38(L) >=60 mL/min/1. 73 m?? [facility] Comment: The eGFR was calculated using the CKD-EPI equation. As with all creatinine based estimates of kidney function, eGFR values calculated with the CKD-EPI equation are not accurate in patients with acute kidney failure, extremes of body mass or the acutely ill. [email or web address] eGFR 44(L) >=60 mL/min/1. 73 m?? [facility] Comment: The eGFR was calculated using the CKD-EPI equation. As with all creatinine based estimates of kidney function, eGFR values calculated with the CKD-EPI equation are not accurate in patients with acute kidney failure, extremes of body mass or the acutely ill. [email or web address] Blood specimen (specimen) 02/22/2019 3:41 AM EST 02/22/2019 4:17 AM EST Narrative Resulting Agency Comment Spec In Lab Jaxon Fontaine MD CHEMISTRY ORDERABLES Performing Organization Address City/[facility]/ZIP Co de Phone Number [facility] [place] [address] * Urinalysis Microscopic Exam (02/21/2019 5:25 PM EST) RBC, Urine 3 0 - 4 /HPF [facility] WBC, Urine 5 0 - 5 /HPF [facility] Urine specimen obtained via indwelling urinary catheter (specimen) 02/21/2019 5:25 PM EST 02/21/2019 5:52 PM EST Narrative Resulting Agency Comment Spec In Lab Servando Nolan MD URINE ORDERABLES Performing Organization Address City/[facility]/ZIP Co de Phone Number [facility] [place] [address] * (ABNORMAL) Urinalysis with reflex Culture (02/21/2019 5:25 PM EST) Glucose, Urine Dipstick Negative Negative mg/dL [facility] Protein, Urine Dipstick Negative Negative mg/dL [facility] Bilirubin, Urine Dipstick Negative Negative mg/dL [facility] Comment: Clinical correlation required for positive Urine Bilirubin results as false positive may occur with some drugs and drug related products. If a false positive is suspected a serum total bilirubin should be considered if clinically indicated. Urobilinogen, Urine Dipstick Normal Normal mg/dL [facility] pH, Urn (dipstick) 6.5 5.0 - 8.0 [facility] Blood, Urine Dipstick Negative Negative mg/dL [facility] Ketone, Urine Dipstick Negative Negative mg/dL [facility] Nitrite, Urine Dipstick Negative Negative [facility] Leukocytes, Urine Dipstick Trace(A) Negative [facility] LABORATORY Appearance, Urine Dipstick Clear Clear [facility] Specific [place] Urine Automated 1.015 1.002 - 1.030 [facility] Color, Urine Dipstick Yellow Yellow [facility] Reflex to Culture No [facility] Urine specimen obtained via indwelling urinary catheter (specimen) 02/21/2019 5:25 PM EST 02/21/2019 5:52 PM EST Narrative Resulting Agency Comment Spec In Lab Jaxon Fontaine MD URINE ORDERABLES Performing Organization Address City/State/[facility] Co de Phone Number [facility] [place] [address] * Differential, Automated (02/21/2019 3:27 AM EST) Neutrophil % 56.1 % [facility] Neutrophil Absolute 3.96 1.70 - 6.10 x10(3)/[facility] LABORATORY Lymph % 28.8 % [facility] Lymphocytes Abs 2.0 0.9 - 3.2 x10(3)/[facility] LABORATORY Monocyte % 7.6 % [facility] Monocyte Abs 0.5 0.3 - 0.9 x10(3)/[facility] LABORATORY Eos % 6.2 % [facility] Eosinophils Abs 0.4 0.0 - 0.4 x10(3)/[facility] LABORATORY Basophil % 1.0 % [facility] Baso Absolute 0.1 0.0 - 0.1 x10(3)/[facility] LABORATORY Immature Gran % 0.30 % [facility] Comment: Immature granulocytes(IG's)percentage and absolute count will include metamyelocytes, myelocytes, and promyelocytes. Blood smears from CBCs yielding IG's will be scanned manually for concordance. If this scan disagrees with the automated IG or if promyelocytes are noted, a manual differential will be performed. Immature Gran Absolute 0.02 0.00 - 0.04 x10(3)/[facility] LABORATORY Blood specimen (specimen) 02/21/2019 3:27 AM EST 02/21/2019 3:36 AM EST Narrative Resulting Agency Comment Spec In Lab Zenobia Quijano MD HEMATOLOGY ORDERABLE S [facility] [place] [address] * (ABNORMAL) Hemogram (02/21/2019 3:27 AM EST) White Blood Cell 7.1 4.0 - 9.5 x10(3)/mc L [facility] Red Blood Cell 3.38(L) 4.00 - 5.21 x10(6)/mc L [facility] Hemoglobin 9.9(L) 11.7 - 15.5 gm/dL [facility] Hematocrit 31.9(L) 35.7 - 45.8 % [facility] Mean Cell Volume 94.4 82.6 - 94.4 fL [facility] Mean Cell Hemoglobin 29.3 27.1 - 32.0 pg [facility] Mean Cell Hemoglobin Concentration 31.0(L) 31.7 - 35.0 gm/dL [facility] Platelet 331 145 - 357 x10(3)/mc L [facility] RDW Standard Deviation 46.7(H) 37.0 - 46.0 fL [facility] RDW coefficient of variation 13.4 11.5 - 14.1 % [facility] Mean Platelet Volume 9.8 7.6 - 12.9 fL [facility] NRBC% auto 0.0 % [facility] NRBC Absolute 0.000 0.000 - 0.000 x10(3)/mc L [facility] Blood specimen (specimen) 02/21/2019 3:27 AM EST 02/21/2019 3:36 AM EST Narrative Resulting Agency Comment Spec In Lab Zenobia Quijano MD HEMATOLOGY ORDERABLE S Performing Organization Address City/State/[facility] Co de Phone Number [facility] [place] [address] * (ABNORMAL) BMP w/fasting Glucose (02/21/2019 3:27 AM EST) Glucose Fasting 76 65 - 99 mg/dL [facility] Comment: ?Fasting* Glucose Interpretive [...] of Diabetes Mellitus, Position Statement from the [place] [employer]. ??Diabetes Care, Volume 33, Supplement 1, Apr 2009 Blood Urea Nitrogen 27(H) 8 - 18 mg/dL [facility] Creatinine 1.60(H) 0.70 - 1.20 mg/dL [facility] Sodium 141 135 - 145 mmol/L [facility] Potassium 4.8 3.5 - 5.0 mmol/L [facility] Comment: Please note: ??Patients with WBC >100,000 may have falsely elevated Potassium levels. ??For accurate Potassium quantification in these patients send serum separator tube (gold top) for subsequent determinations. ??Contact the Clinical Chemistry Laboratory if there are any questions. Chloride 107 98 - 107 mmol/L [facility] Carbon Dioxide 23 22 - 31 mmol/L [facility] Anion Gap 11 5 - 15 mmol/L [facility] Calcium 8.7 8.5 - 10.5 mg/dL [facility] Est Glomerular Filtration Rate 35(L) >=60 mL/min/1. 73 m?? [facility] Comment: The eGFR was calculated using the CKD-EPI equation. As with all creatinine based estimates of kidney function, eGFR values calculated with the CKD-EPI equation are not accurate in patients with acute kidney failure, extremes of body mass or the acutely ill. [email or web address] eGFR 40(L) >=60 mL/min/1. 73 m?? [facility] Comment: The eGFR was calculated using the CKD-EPI equation. As with all creatinine based estimates of kidney function, eGFR values calculated with the CKD-EPI equation are not accurate in patients with acute kidney failure, extremes of body mass or the acutely ill. [email or web address] Blood specimen (specimen) 02/21/2019 3:27 AM EST 02/21/2019 3:36 AM EST Narrative Resulting Agency Comment Spec In Lab Jaxon Fontaine MD CHEMISTRY ORDERABLES [facility] [place] [address] * Differential, Automated (02/20/2019 5:45 PM EST) Neutrophil % 61.4 % [facility] Neutrophil Absolute 4.30 1.70 - 6.10 x10(3)/[facility] LABORATORY Lymph % 25.4 % [facility] Lymphocytes Abs 1.8 0.9 - 3.2 x10(3)/[facility] LABORATORY Monocyte % 6.7 % [facility] Monocyte Abs 0.5 0.3 - 0.9 x10(3)/[facility] LABORATORY Eos % 5.3 % [facility] Eosinophils Abs 0.4 0.0 - 0.4 x10(3)/[facility] LABORATORY Basophil % 0.9 % [facility] Baso Absolute 0.1 0.0 - 0.1 x10(3)/[facility] LABORATORY Immature Gran % 0.30 % [facility] Comment: Immature granulocytes(IG's)percentage and absolute count will include metamyelocytes, myelocytes, and promyelocytes. Blood smears from CBCs yielding IG's will be scanned manually for concordance. If this scan disagrees with the automated IG or if promyelocytes are noted, a manual differential will be performed. Immature Gran Absolute 0.02 0.00 - 0.04 x10(3)/[facility] LABORATORY Blood specimen (specimen) 02/20/2019 5:45 PM EST 02/20/2019 6:01 PM EST Narrative Resulting Agency Comment Spec In Lab Zenobia Quijano MD HEMATOLOGY ORDERABLE S [facility] [place] [address] * (ABNORMAL) Hemogram (02/20/2019 5:45 PM EST) White Blood Cell 7.0 4.0 - 9.5 x10(3)/ L [facility] Red Blood Cell 3.50(L) 4.00 - 5.21 x10(6)/ L [facility] Hemoglobin 10.4(L) 11.7 - 15.5 gm/dL [facility] Hematocrit 33.0(L) 35.7 - 45.8 % [facility] Mean Cell Volume 94.3 82.6 - 94.4 fL [facility] Mean Cell Hemoglobin 29.7 27.1 - 32.0 pg [facility] Mean Cell Hemoglobin Concentration 31.5(L) 31.7 - 35.0 gm/dL [facility] Platelet 349 145 - 357 x10(3)/mc L [facility] RDW Standard Deviation 46.7(H) 37.0 - 46.0 fL [facility] RDW coefficient of variation 13.5 11.5 - 14.1 % [facility] [facility] Mean Platelet Volume 10.0 7.6 - 12.9 [facility] LABORATORY NRBC% auto 0.0 % [facility] NRBC Absolute 0.000 0.000 - 0.000 x10(3)/mc L [facility] Blood specimen (specimen) 02/20/2019 5:45 PM EST 02/20/2019 6:01 PM EST Narrative Resulting Agency Comment Spec In Lab Zenobia Quijano MD HEMATOLOGY ORDERABLE S Performing Organization Address City/State/[facility] Co de Phone Number [facility] [place] [address] * (ABNORMAL) BMP w/fasting Glucose (02/20/2019 5:45 PM EST) Glucose Fasting 134(H) 65 - 99 mg/dL [facility] Comment: ?Fasting* Glucose Interpretive [...] of Diabetes Mellitus, Position Statement from the [place] [employer]. ??Diabetes Care, Volume 33, Supplement 1, Apr 2009 Blood Urea Nitrogen 29(H) 8 - 18 mg/dL [facility] Creatinine 1.58(H) 0.70 - 1.20 mg/dL [facility] Sodium 142 135 - 145 mmol/L [facility] Potassium 5.0 3.5 - 5.0 mmol/L [facility] Comment: Please note: ??Patients with WBC >100,000 may have falsely elevated Potassium levels. ??For accurate Potassium quantification in these patients send serum separator tube (gold top) for subsequent determinations. ??Contact the Clinical Chemistry Laboratory if there are any questions. Chloride 106 98 - 107 mmol/L [facility] Carbon Dioxide 23 22 - 31 mmol/L [facility] Anion Gap 13 5 - 15 mmol/L [facility] Calcium 9.1 8.5 - 10.5 mg/dL [facility] Est Glomerular Filtration Rate 35(L) >=60 mL/min/1. 73 m?? [facility] Comment: The eGFR was calculated using the CKD-EPI equation. As with all creatinine based estimates of kidney function, eGFR values calculated with the CKD-EPI equation are not accurate in patients with acute kidney failure, extremes of body mass or the acutely ill. [email or web address]ENNEnkf eGFR 41(L) >=60 mL/min/1. 73 m?? [facility] Comment: The eGFR was calculated using the CKD-EPI equation. As with all creatinine based estimates of kidney function, eGFR values calculated with the CKD-EPI equation are not accurate in patients with acute kidney failure, extremes of body mass or the acutely ill. [email or web address] Blood specimen (specimen) 02/20/2019 5:45 PM EST 02/20/2019 6:01 PM EST Narrative Resulting Agency Comment Spec In Lab Jaxon Fontaine MD CHEMISTRY ORDERABLES [facility] [place] [address] * Anaerobic Culture (02/20/2019 5:42 PM EST) Anaerobic Culture No anaerobic organisms isolated [facility] Deep Wound INGUINAL REGION STRUCTURE / Unknown 02/20/2019 5:42 PM EST 02/20/2019 6:03 PM EST Comment:RIGHT GROIN DEEP WOU ND CULTURE Narrative Resulting Agency Comment Spec In Lab Jaxno Fontaine MD MICROBIOLOGY - GENER AL ORDERABLES Performing Organization Address [facility]/ZIP Co de Phone Number [facility] [place] [address] * (ABNORMAL) Abscess/Wound Aspirate Culture (02/20/2019 5:42 PM EST) Abscess/Wound Aspirate Culture Escherichia coli isolated from broth culture. Few Staphylococcus lugdunensis (A) [facility] Gram Stain Few Neutrophils seen Rare Gram Positive Cocci seen (A) [facility] Organism Escherichia coli(A) [facility] Organism Staphylococcus lugdunensis(A) [facility] Organism Gram Positive Cocci(A) [facility] Deep Wound INGUINAL REGION [...] Sensitive Comment:Gentamicin i s not appropriate for [place]-therapy. Staphylococcus lugdunensis Levofloxacin MICROSCAN METHOD Sensitive Staphylococcus [...] METHOD Sensitive Jaxon Fontaine MD MICROBIOLOGY - [facility] [place] [address] documented in this encounter Visit Diagnoses Diagnosis Hematoma Contusion of unspecified site Hematoma of groin, subsequent encounter PAD (peripheral artery disease) Peripheral vascular disease, unspecified PVD (peripheral vascular disease) Peripheral vascular disease, unspecified Groin hematoma Contusion of abdominal wall Hematoma Contusion of unspecified site documented in this encounter Administered Medications Inactive [...] Mon02/24/19 at 2200, Until Discontinued, Routine 1718 (JUN Hold - Provider: Admin Adt - Reason: Transfer to a Procedural area)190 ([facility] Unhold - Provider: Admin Adt)222 (Given - Provider: Raj Saldana, RN) 2031 (Given - Provider: Claudine Peace RN) pantoprazole (PROTONIX) tablet 40 mg 40 mg, Oral, DAILY, First dose on Mon02/21/19 at 0900, Until Discontinued, DO NOT CRUSH OR OPEN, Routine 0833 (Given - Provider: Gogo Terrell RN)1718 ([facility] Hold - Provider: Admin Adt - Reason: Transfer to a Procedural area)190 ([facility] Unhold - Provider: Admin Adt) 0810 (Given - Provider: Hilton Montez, TAMEKA) 0831 (Given - Provider: Toni Calabrese, TAMEKA) polyethylene glycol (MIRALAX) packet 17 g 17 g, Oral, DAILY, First dose on Mon02/26/19 at 1245, Until Discontinued, Routine 0900 (Not Given - Provider: Gogo Terrell RN - Reason: NPO)1718 ([facility] Hold - Provider: Admin Adt - Reason: Transfer to a Procedural area)190 ([facility] Unhold - Provider: Admin Adt) 0900 (Not Given - Provider: Hilton Montez RN - Reason: Patient/family refused) 0900 (Not Given - Provider: Toni Calabrese RN - Reason: Patient/family refused) simvastatin (ZOCOR) tablet 40 mg 40 mg, Oral, EVERY EVENING, First dose on Mon02/20/19 at 2230, Until Discontinued 1700 (Not Given - Provider: Gogo Terrell RN - Reason: Patient/family refused)1718 ([facility] Hold - Provider: Admin Adt - Reason: Transfer to a Procedural area)190 ([facility] Unhold - Provider: Admin Adt) 1642 [...] TAMEKA) 030 (Given - Provider: Raj Saldana, TAMEKA)203 (Given [...] RN)0015 (Due: Stopped - Provider: Gogo Terrell RN)171 (JUN Hold [...] Pump Bolus (Units))., Medication Name: aspart (Novolog) 954 (JUN Hold - Provider: Admin Adt - Reason: Transfer to a Procedural area)190 ([facility] Unhold - Provider: Admin Adt) ondansetron (ZOFRAN) injection 4-8 mg(Linked Group 4) 4-8 mg, Intravenous, EVERY 8 HOURS PRN, Starting on Mon02/20/19 at 2056, Until Mon03/01/19 at 1808, Nausea, Start with 4mg and if ineffective in 30 minutes, give an additional 4mg 1717 ([facility] Hold - Provider: Admin Adt - Reason: Transfer to a Procedural area)1902 ([facility] Unhold - Provider: Admin Adt) ondansetron [...] 45 minutes if ineffective. , Routine 1717 ([facility] Hold - Provider: Admin Adt - Reason: Transfer to a Procedural area)1902 ([facility] Unhold - Provider: Admin Adt) oxyCODONE (ROXICODONE) immediate release tablet 5 mg 5 mg, Oral, EVERY 4 HOURS PRN, Starting on Mon02/20/19 at 1738, Until Mon03/01/19 at 1808, Pain, Routine 1717 ([facility] Hold - Provider: Admin Adt - Reason: Transfer to a Procedural area)190 ([facility] Unhold - Provider: Admin Adt) Linked [...] 4mg documented in this encounter Care Teams Carbon Sequestration Plant Manager Relationship Specialty Start Date End Date Shirley Yu MD [address] [place] [address] PCP - General 11/19/14 documented as of this encounter
--- OUTSIDE RECORDS SUMMARY | 2023-12-13 18:26 | XMS_ITS | Encounter Summary ---
Author Organization [facility] [place] [address] Care Team Providers Care Auto Air Conditioning Installer Name Role Phone Shirley Yu MD Primary Care Provider [phone] Encounter Details Date Type Department Care Team (Late st Contact Info) Description 02/20/2019 11:00 AM EST Office Visit [place] [address] Kaity Fontaine MD [facility] [address] PVD (peripheral vascular disease) Social History Tobacco [...] Sign Reading Time Taken Comments Blood Pressure 153/53 02/20/2019 10:58 AM EST Pulse 58 02/20/2019 10:58 AM EST Temperature - - Respiratory Rate - - Oxygen Saturation - - Inhaled Oxygen Concentration - - Weight 95.7 kg (211 lb) 02/20/2019 10:58 AM EST reported Height 170.2 cm (5' 7) 02/20/2019 10:58 AM EST reported Body Mass Index 33.05 02/20/2019 10:58 AM EST documented in this encounter Progress Notes * Kaity Fontaine MD - 02/20/2019 11:00 AM EST Vascular Surgery Clinic Visit February 20, 2019 CC: Patient is a 58 y.o. female who is here for follow up of right groin wound. Last seen in clinic on 02/14/19. Started on clindamycin due to erythema around incision. States she's been draining blood from the incision. Was seen at her local ER and they placed sutures to try to stop the bleeding. On exam, patient in NAD. R groin wound with likely superficial hematoma underneath which is now draining. Cam and sutures in place. Palpable right DP. A/P: 58yo female s/p R femoral endarterectomy via redo dissection, now with draining hematoma. Will plan to admit for hematoma evacuation/groin wash out in the OR. Patient last had coffee with cream and donut about 7:30 am this morning - will make NPO for possible OR later today. Kaity Fontaine MD documented in this encounter Plan of Treatment Upcoming Encounters Date Type Department Care Team (Late st Contact Info) Description 12/19/2023 1:00 PM EDT Tech [place] [phone] Marguerite Macias 12/19/2023 3:00 PM EDT Office [place] [phone] Gardenia Golden APRN [facility] [place] [address] 01/29/2024 1:[address] [place] [phone] César Escobar MD [facility] [place] [address] 01/29/2024 2:30 PM EDT Office [place] [phone] César Escobar MD [facility] [place] [address] documented as of this encounter Visit Diagnoses Diagnosis PVD (peripheral vascular disease) Peripheral vascular disease, unspecified documented in this encounter Care Teams Auto Air Conditioning Installer Relationship Specialty Start Date End Date Shirley Yu MD [address] [place] [address] PCP - General 11/19/14 documented as of this encounter
--- OUTSIDE RECORDS SUMMARY | 2023-12-13 18:27 | XMS_ITS | Encounter Summary ---
[place] [address] Care Team Providers Care Supervisor Ordnance Truck Installation Name Role Phone Shirley Yu MD Primary Care Provider [phone] Encounter Details Date Type Department Care Team (Late st Contact Info) Description 02/01/2019 Telephone [place] [address] Tavia Adam RN Social History Tobacco Use Types Packs/Day [...] encounter Miscellaneous Notes * Telephone Encounter - Tavia Adam RN - 02/01/2019 3:26 PM EDT Preparole Counseling Aide followed up with Dr. Fontaine as we found out from PAT that patient hadn't stopped her pletal yet. Per Dr. Fontaine, stop pletal as of now and will plan for surgery Monday. Continue ASA and stop pradaxa 3 days prior to surgery documented in this encounter Plan of Treatment Upcoming Encounters Date Type Department Care Team (Late st Contact Info) Description 12/19/2023 1:00 PM EDT Tech [place] [address] Marguerite Macias 12/19/2023 3:00 PM EDT Office Visit [place] [address] Gardenia Golden, WARP BLEACHING VAT TENDER [facility] DR VASCULAR SURGERY [place], [place] [phone] 01/29/2024 1:[address] [place] [address] César Escobar MD [facility] [place] [address] 01/29/2024 2:30 PM EDT Office [place] [address] César Escobar MD [facility] [place] [address] documented as of this encounter Visit Diagnoses Not on filedocumented in this encounter Care Teams Supervisor Ordnance Truck Installation Relationship Specialty Start Date End Date Shirley Yu MD [address] [place] [address] PCP - General 11/19/14 documented as of this encounter
--- OUTSIDE RECORDS SUMMARY | 2023-12-13 18:27 | XMS_ITS | Encounter Summary ---
Author Organization [facility] [place] [address] Care Team Providers Care Histology Technician Name Role Phone Shirley Yu MD Primary Care Provider [phone] Reason for Visit * Auth/Cert Specialty Diagnoses / Procedures Referred By Dominik mcleod Referred To Contact Diagnoses PVD (peripheral vascular disease) PVD PVD Procedures PRO THROMBOENDARTECTMY FEMORAL COMMON @ENDARTERECTOMY, COMMON FEMORAL W OR W/O PATCH GRAFT (WRVU 15.31) Referral ID Status Reason Start Date Expiration Date Visits Re quested Visits Authorized [id number] 1 1 Encounter Details Date Type Department Care Team (Late st Contact Info) Description 02/04/2019 12:00 PM EDT - 02/04/2019 4:23 PM EDT [place] [id number] Jaxon Fontaine MD [facility] [place] [address] @ENDARTERECTOMY, COMMON FEMORAL W OR W/O PATCH GRAFT (WRVU 15.31) Social History Tobacco Use Types Packs/Day Years [...] Sign Reading Time Taken Comments Blood Pressure 158/63 02/04/2019 11:31 AM EDT Pulse 62 02/04/2019 11:31 AM EDT Temperature 36.7 ??C (98.1 ??F) 02/04/2019 11:31 AM E DT Respiratory Rate 18 02/04/2019 11:31 AM EDT Oxygen Saturation 100% 02/04/2019 11:31 AM EDT Inhaled Oxygen Concentration - - Weight 96.2 kg (212 lb) 02/04/2019 11:31 AM EDT Height 170.2 cm (5' 7) 02/04/2019 11:31 AM EDT Body Mass Index 33.8 02/04/2019 11:31 AM EDT documented in this encounter Discharge Summaries * Shiv Middleton MD - 02/08/2019 11:51 AM EDT Inpatient - Discharge Summary Patient Name: Jennifer Branch Patient Age: 58 y.o. Birthdate: 1960 Admit date: 02/04/2019 Discharge date and time: 02/08/2019 Attending Physician: Jaxon Fontaine MD Discharging Provider: Shiv Middleton MD Discharging Service: Vascular Surgery Operations/Major Procedures: 02/04: Right femoral endarterectomy, revision of proximal vein bypass, with bovine patch angioplasty, Right profunda plasty with bovine patch angioplasty Active Hospital Problems: Active Hospital Problems Diagnosis ??? Groin hematoma ??? PVD (peripheral vascular disease) ??? Type 1 diabetes Resolved Hospital Problems No resolved problems to display. Active Non Hospital Problems: Active Non-Hospital Problems Diagnosis ??? Lung nodule ??? Proliferative diabetic retinopathy of left eye ??? Obesity ??? Hypertension ??? Hyperlipidemia ??? Sleep apnea ??? Hypothyroidism ??? Depression ??? PDR (proliferative diabetic retinopathy) ??? Intermittent claudication ??? PAD (peripheral artery disease) ??? 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 Carotid stenosis ??? Hyperkeratosis palmaris et plantaris History of Presentation: (taken from H&P dated 02/04/2019) 58 year old diabetic former smoker with a history of PAD. She underwent RLE bypass angioplasty in April. She has persistently elevated velocities in the inflow artery with evidence of a focal dissection on duplex. She now presents for open revision Hospital Course: Jennifer Branch was admitted on 02/04/19 for for planned open revision of her previous right lowerextremity bypass which performed this past April. She was taken to the OR on 02/04 with the abovesurgeries were performed. She tolerated the surgery well. Postoperatively she was recovering well on the floor. On the night of postoperative day 2 she was noted to have some swelling about her groin which is concerning for possible hematoma. Her heparin drip was discontinued and her groin was monitored. The size of this hematoma remained stable. Ms. Branch was otherwise recovering very well. She was tolerating a regular diet, voiding adequately and having bowel movements. She was also capableof getting up and ambulating independently. She was seen and evaluated by the vascular surgery teamon 02/08/2019 and was deemed medically ready for discharge to home Important Studies and Lab Data: Labs: 02/08/2019: Right lower extremity duplex assessment of bypass graft Interpretation: ?? RIGHT: Patent common femoral to above knee popliteal artery bypass graft with no evidence of stenosis. No evidence of pseudoaneurysm or other abnormality in the groin, however, surgical judd makes thorough interrogation difficult. Improved compared to previous exam done 12/17/2018. 02/08/2019: SHEFALI Interpretation: ?? RIGHT: No significant lower extremity arterial occlusive disease identified at rest. Normal ankle/brachial pressure ratios and ankle Doppler waveforms. Toe-brachial index substantially lower than ankle-brachial index indicates presence of mild arterial occlusive disease in the distal calf and foot. Some improvement in ABIs with no significant change in TBI compared to preoperative exam. ? LEFT: Moderate lower extremity arterial occlusive disease. No significant change compared to previous exam. Pending Studies and Lab Data: None Discharge Condition: Stable Physical Exam: General: NAD, resting comfortably HEENT: Normocephalic/atraumatic Heart:: regular rate Pulmonary: non-labored breathing on room air, CPAP machine at bedside Neuro: no obvious focal deficits Extremities: Right lower extremity with a palpable DP and PT. R groin with stable hematoma. Otherwise well healing incision. Discharge to: Home Future Appointments and Orders Future Appointments and Orders Future Appointments Provider Department Dept Phone 01/31/2020 12:15 PM Bridget Dominguez MD; JORDYN AND RUSSELL LARES; RUSSELL GRAHAM Ophthalmology at [facility] Arrive at: Sales Promoter Area [phone] The above listed future appointments do not include your upcoming vascular surgery appointment. We will plan to see you next week . This information will be called/mailed to patient. Anticoagulation & Antiplatelet: Anticoagulation: Yes Agent: Pradaxa Indication: Disadvantaged vein graft from surgery in 2008 Intended Duration: Indefinitely Antiplatelet: Yes Agent: Aspirin Indication: Peripheral vascular disease Intended Duration: Indefinitely For questions regarding these medications, please contact: [facility] vascular surgery or the patient's primary care doctor Discharge Medications: Your Medications New Medications Dose Details acetaminophen 500 mg Tab Commonly known as: TYLENOL Take 1 tablet by mouth every 4 hours as needed for Pain. 500 mg Quantity: 30 tablet Refills: 1 glucagon 3 mg/actuation Mey[place] 3 mg by Nasal route as needed. 3 mg Quantity: 2 each Refills: 3 oxyCODONE 5 mg Tab Commonly known as: ROXICODONE Take 1 tablet by mouth every 4 hours as needed for Pain (for breakthrough pain). 5 mg Quantity: 20 tablet Refills: 0 Continued medications, unchanged Dose Details aspirin 81 mg Tbec Take 81 mg [...] 1 capsule by mouth 2 times daily. Start taking on: February 09, 2019 150 mg Quantity: 180 capsule Refills: 0 Diabetic Supplies, Miscellan. Misc Form faxed to [employer] for pump supplies. Quantity: 100 each Refills: 12 insulin lispro Soln Commonly known as: HumaLOG [...] Generic drug: insulin aspart U-100 Refills: 0 ONETOUCH ULTRA TEST Strp 1 strip by Other route 4 times daily. Generic drug: blood sugar diagnostic strips 1 strip Refills: 4 pantoprazole 40 mg Tbec Commonly known as: PROTONIX TAKE ONE TABLET BY MOUTH TWICE A DAY Refills: 98 simvastatin 40 mg Tab Commonly known as: ZOCOR Refills: 0 STOPPED Medications cilostazol 100 mg Tab Commonly known as: PLETAL Updated Allergies/ADRs: Allergies Allergen Reactions ??? Sulfa (Sulfonamide Antibiotics) Other (See Comments) Renal failure, bleeding ??? Pcn [Penicillins] Unknown Follow-up Recommendations for Providers: Nonspecific. Please feel free to contact the [facility] vascular surgery department with any questions orconcerns regarding her surgery. Instructions Given to Patient at Discharge: Patient Instructions Patient Instructions You were admitted on 02/08/2019 after having a right femoral endarterectomy with revision of proximal vein bypass to get more blood flow to your leg. All of this went very well. Dr. Fontaine will want youto be seen next week 02/14/19. This will be arranged for you and sent to you in the mail. If for some reason you don't hear from us by next week Monday please call our office as your followup is very important. Anticoagulation: Resume your home Pradaxa starting tomorrow. Call your doctor if you experience any: fever, drainage, redness or separation of your incision, [...] pat dry. No soaking in a pool/bath/hottub until cleared to do so by your surgeon. Wound Care: [place] your groin incision with iodine daily. For any problems or questions please call [phone] BREONNA Hou, adjuster leader Nurse Clinician For issues on weeknights after 5pm and weekends please call [phone] and ask for the Vascular Fellow risk assessment consultant. Shiv Middleton MD 02/08/2019 documented in this encounter Discharge Instructions * Patient Instructions* Shiv Middleton MD - 02/08/2019 11:39 AM EDT Patient Instructions You were admitted on 02/08/2019 after having a right femoral endarterectomy with revision of proximal vein bypass to get more blood flow to your leg. All of this went very well. Dr. Fontaine will want youto be seen next week 02/14/19. This will be arranged for you and sent to you in the mail. If for some reason you don't hear from us by next week Monday please call our office as your followup is very important. Anticoagulation: Resume your home Pradaxa starting tomorrow. Call your doctor if you experience any: fever, drainage, redness or separation of your incision, [...] pat dry. No soaking in a pool/bath/hottub until cleared to do so by your surgeon. Wound Care: [place] your groin incision with iodine daily. For any problems or questions please call [phone] BREONNA Hou, adjuster leader Nurse Clinician For issues on weeknights after 5pm and weekends please call [phone] and ask for the Vascular Fellow risk assessment consultant. documented in this encounter Medications at [...] TWICE A DAY 98 07/26/2016 Diabetic Supplies, Clean Runner. Mis Form faxed to [employer] for pump supplies. 100 each 12 03/23/2015 [...] for hypoglycemia). 1 mL 3 02/18/2019 12/01/2023 glucagon 3 mg/actuation [place], Non-Aerosol 3 mg by Nasal route as needed. 2 each 3 02/08/2019 02/18/2019 acetaminophen (TYLENOL) 500 mg Tablet Take 1 [...] as of this encounter Progress Notes * Yue Lee RN - 02/08/2019 1:26 PM EDT Casandra was discharged from [facility]. Her IV was removed. Belongings were gathered. Discharge instructions were reviewed and verbal understanding was given. All questions were answered. The patient left the unit with her family members. * Margie Barron APRN - 02/08/2019 11:55 AM EDT Follow Up Diabetes Consult Patient Interview Casandra is being discharged home today. She has had good glycemic control using her pump. Objective Temp: [36.8 ??C (98.2 ??F)-37.4 ??C (99.4 ??F)] Heart Rate: -- Resp: [16-20] BP: (118-152)/(45-60) SpO2: [90 %-94 %] Heart Rate from SpO2: [59 bpm-70 bpm] Current Regimen from previous note 1. {Patient managed Insulin Pump, check POC BG every 4 hours on hospital POC machine. 2 Diet Level 2 carb control Recent Glucose Levels Recent Labs 02/08/19 0818 02/08/19 0400 02/08/19 0108 02/07/19 2326 02/07/19 1939 02/07/19 1218 02/07/19 0809 02/07/19 0341 02/07/19 0017 02/06/19 1955 02/06/19 1514 02/06/19 1109 POCGLU 177 148 180 216* 264* 103 140 133 159 247* 183 129 ASSESSMENT Patient is a 58 y.o. years old female with PMH significant for DM (Last A1C of 8.0%) who was admitted on 02/04/2019 for Redo right femoral endarterectomy with arterial reconstruction. Diabetes with improving control and currently complicated by stress of hospitalization. Currently with variability of blood glucose levels while hospitalized requiring adjustment of insulin regimen and DM medications. She is looking forward to getting her continuous glucose sensor back on this helps her control her sugars much better. PLAN 1. {Patient managed Insulin Pump, check POC BG every 4 hours on hospital POC machine. 2 Diet Level 2 carb control Margie Barron APRN [facility] Endocrinology Diabetes Management Pager [phone] 15 minutes of this 20 minute visit was spent with the patient in counseling on diabetes and treatment plan, reviewing all glucose and insulin data as well as relevant laboratory results with the patient, and coordination of care on the inpatient unit including nursing and primary team. * Shiv Middleton MD - 02/06/2019 2:34 PM EDT Vascular Surgery Progress Note Jennifer Branch is a 58 y.o. female with hx of RLE bypass angioplasty in April. She has persistently elevated velocities in the inflow artery with evidence of a focal dissection on duplex. She nowpresents for open revision. ?? Active Hospital Problems Diagnosis ??? PVD (peripheral vascular disease) ??? Type 1 diabetes Resolved Hospital Problems No resolved problems to display. Active Non-Hospital Problems Diagnosis ??? Lung nodule ??? Proliferative diabetic retinopathy of left eye ??? Obesity ??? Hypertension ??? Hyperlipidemia ??? Sleep apnea ??? Hypothyroidism ??? Depression ??? PDR (proliferative diabetic retinopathy) ??? Intermittent claudication ??? PAD (peripheral artery disease) ??? 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 Carotid stenosis ??? Hyperkeratosis palmaris et plantaris Scheduled Medications: ??? aspirin 81 mg Oral Daily ??? carvedilol 1.56 mg Oral BID WC ??? citalopram 20 mg Oral BID ??? levothyroxine 125 mcg Oral QAM ??? losartan 50 mg Oral Daily ??? pantoprazole 40 mg Oral Daily ??? simvastatin 40 mg Oral QPM Operations This Hospitalization: 02/04: Right femoral endarterectomy, revision of proximal vein bypass, with bovine patch angioplasty Right profunda plasty with bovine patch angioplasty Interval events/subjective: HIGINIO overnight Feeling well this morning. Pain well controlled. Denies n/v/f/c Objective: Temp: [36.5 ??C (97.7 ??F)-37.9 ??C (100.2 ??F)] Heart Rate: -- Resp: [17-22] BP: (126-149)/(47-104) SpO2: [88 %-94 %] Heart Rate from SpO2: [60 bpm-70 bpm] BMI: Weight: 97.9 kg (215 lb 13.3 oz) (02/06/19 0401) BMI (Calculated): 33.2 BMI Classification: Obese Intake/Output Summary (Last 24 hours) at 02/06/2019 1434 Last data filed at 02/06/2019 1242 Gross per 24 hour Intake 1729.7 ml Output 1100 ml Net 629.7 ml PHYSICAL EXAM: General: NAD, resting comfortably HEENT: Normocephalic/atraumatic Heart:: regular rate Pulmonary: non-labored breathing on room air, CPAP machine at bedside Neuro: no obvious focal deficits Extremities: Right lower extremity with a palpable DP and PT. Left lower extremity with easily dopplerable DP and PT. Labs: Recent Labs 02/06/19 0438 02/05/19 1440 02/05/19 0839 02/05/19 0448 WBC 7.5 8.8 7.4 6.5 HGB 9.5* 10.6* 10.4* 9.9* HCT 31.6* 33.8* 33.8* 32.4* PLATELET 201 223 209 196 Recent Labs 02/06/19 0438 02/05/19 0448 NA 140 141 K 4.5 4.2 CL 106 109* CO2 25 25 BUN 20* 23* CREATININE 1.50* 1.41* CALCIUM 8.3* 8.0* Microbiology: Not applicable New Studies: None Assessment & Plan: Jennifer Branch is a 58 y.o. female 2 Days Post-Op from right femoral endarterectomy, revision of proximal vein bypass with bovine patch plasty and right profundoplasty with bovine patch angioplasty. Continues to recover well from surgery. Worked with PT yesterday and is cleared for discharge to home. Plan to continue to monitor for another day on therapeutic heparin gtt before transitioning to Pradaxa (dabigatran). Therapeutic heparin drip without bolus doses. Regular diet Diabetes following - recs appreciated. PT/OT - clear for home Anticoagulation: hep gtt Antiplatelet: ASA 81 Shiv Middleton MD 02/06/2019 Pager: [phone] * Janey Madera, RD - 02/05/2019 1:51 PM EDT Nutrition Initial Note Jennifer Branch is a 58 y.o. female Reason for intervention: Education Nutrition Recommendations: Continue current diet Monitor weight trends Patient Active Problem List Diagnosis Code ??? [...] disease) I73.9 ??? Type 1 diabetes E10.9 Past Medical History: Diagnosis Date ??? Allergy [...] diabetes 1976 A1C is a little high Active Orders Diet Carb Control diet // CHO counting level 2 Frequency: Effective Now Number of Occurrences: Until Specified Admit Weight: 96.16 kg Estimated body mass index is 33.2 kg/m?? as calculated from the following: Height as of this encounter: 170.2 cm (5' 7). Weight as of this encounter: 96.2 kg (212 lb). Mcrae Body Weight (IBW): Mcrae body weight: 61.6 kg (135 lb 12.9 oz) Adjusted ideal body weight: 75.4 kg (166 lb 4.5 oz) UBW: 215lbs Estimated needs: Calories: 1900 Protein: 50 grams Today's medications: ??? [DISCONTINUED] heparin (porcine) injection 0-8,000 Units AND heparin 25,000 units in sodiumchloride 0.45% 500 mL infusion ??? INSULIN PUMP (PATIENT OWN) ??? glucose (GLUTOSE) 40% oral gel OR dextrose 50% intravenous solution 25- 50 mL OR glucagon (human recombinant) injection SolR 1 mg ??? gelatin adsorbable (GELFOAM) sponge ??? aspirin EC tablet 81 mg ??? carvedilol (COREG) tablet 1.56 mg ??? citalopram (CeleXA) tablet 20 mg ??? levothyroxine (SYNTHROID) tablet 125 mcg ??? losartan (COZAAR) tablet 50 mg ??? pantoprazole (PROTONIX) tablet 40 mg ??? simvastatin (ZOCOR) tablet 40 mg ??? labetalol (NORMODYNE,TRANDATE) injection 10-20 mg ??? hydrALAZINE (APRESOLINE) injection 10-20 mg ??? ondansetron (ZOFRAN) tablet 4-8 mg OR ondansetron (ZOFRAN) injection 4-8 mg ??? acetaminophen (TYLENOL) tablet 500 mg ??? oxyCODONE (ROXICODONE) immediate release tablet 5-10 mg ??? morphine 2 mg/mL injection syringe 2-4 mg Lab Results Component Value Date NA 141 02/05/2019 K 4.2 02/05/2019 CL 109 (H) 02/05/2019 CO2 25 02/05/2019 BUN 23 (H) 02/05/2019 CREATININE 1.41 (H) 02/05/2019 GLUCOSE 98 02/05/2019 CALCIUM 8.0 (L) 02/05/2019 PHOS 3.6 01/25/2018 AST 15 06/04/2018 ALT 8 06/04/2018 ALKPHOS 101 06/04/2018 BILITOT 0.4 06/04/2018 BILIDIR 0.1 11/26/2012 No results for input(s): HA1C in the last 7068 hours. Last Bowel Movement: (HYDROCRANE OPERATOR) Assessment: Patient states she is eating well. I have been carb counting for 45 years. pt declined nutrition questions or concerns. Pt declined need for supplements. Nutrition will follow MARY Lee Beeper #: [phone] * Gerda Taylor RN - 02/05/2019 12:11 PM EDT Diabetes Clinical Nurse Specialist Met with Ms. Branch and her boyfriend, Tevin, to discuss the use of Glucagon for severe hypoglycemia. Pt reports that she has had a few instances of unconscious hypoglycemia at home, yet none since she began using her continuous glucose sensor. Demonstrated for Tevin the IM glucagon emergency kit as well as the new intra- nasal glucagon powder. He voices his preference for the latter. Ms. Branch has been living with type 1 diabetes for 43 years and administers insulin using a pump.She denies questions at this time. * Shiv Middleton MD - 02/05/2019 10:08 AM EDT Vascular Surgery Progress Note Jennifer Branch is a 58 y.o. female with hx of RLE bypass angioplasty in April. She has persistently elevated velocities in the inflow artery with evidence of a focal dissection on duplex. She nowpresents for open revision. ?? Active Hospital Problems Diagnosis ??? PVD (peripheral vascular disease) Resolved Hospital Problems No resolved problems to display. Active Non-Hospital Problems Diagnosis ??? Lung nodule ??? Proliferative diabetic retinopathy of left eye ??? Obesity ??? Hypertension ??? Hyperlipidemia ??? Sleep apnea ??? Hypothyroidism ??? Depression ??? PDR (proliferative diabetic retinopathy) ??? Intermittent claudication ??? PAD (peripheral artery disease) ??? 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 Carotid stenosis ??? Hyperkeratosis palmaris et plantaris Scheduled Medications: ??? aspirin 81 mg Oral Daily ??? carvedilol 1.56 mg Oral BID WC ??? citalopram 20 mg Oral BID ??? levothyroxine 125 mcg Oral QAM ??? losartan 50 mg Oral Daily ??? pantoprazole 40 mg Oral Daily ??? simvastatin 40 mg Oral QPM ??? insulin lispro 2-8 Units Subcutaneous Q4H SUNIL Operations This Hospitalization: 02/04: Right femoral endarterectomy, revision of proximal vein bypass, with bovine patch angioplasty Right profunda plasty with bovine patch angioplasty Interval events/subjective: No acute events overnight. Postop check within normal limits. No acute complaints or concerns this morning. Pain well controlled. Denies any fevers or chills. Objective: Temp: [36.4 ??C (97.5 ??F)-37.2 ??C (99 ??F)] Heart Rate: [53-62] Resp: [11-18] BP: (105-158)/(41-93) SpO2: [88 %-100 %] Heart Rate from SpO2: [53 bpm-73 bpm] BMI: Weight: 96.2 kg (212 lb) (02/04/19 1131) BMI (Calculated): 33.2 BMI Classification: Obese Intake/Output Summary (Last 24 hours) at 02/05/2019 1008 Last data filed at 02/05/2019 0839 Gross per 24 hour Intake 2853 ml Output 1635 ml Net 1218 ml PHYSICAL EXAM: General: NAD, resting comfortably HEENT: Normocephalic/atraumatic Heart:: regular rate Pulmonary: non-labored breathing on room air, CPAP machine at bedside Neuro: no obvious focal deficits Extremities: Right lower extremity with a palpable DP and PT. Left lower extremity with easily dopplerable DP and PT. Labs: Recent Labs 02/05/19 0839 02/05/19 0448 WBC 7.4 6.5 HGB 10.4* 9.9* HCT 33.8* 32.4* PLATELET 209 196 Recent Labs 02/05/19 0448 NA 141 K 4.2 CL 109* CO2 25 BUN 23* CREATININE 1.41* CALCIUM 8.0* Microbiology: Not applicable New Studies: None Assessment & Plan: Jennifer Branch is a 58 y.o. female 1 Day Post-Op from right femoral endarterectomy, revision of proximal vein bypass with bovine patch plasty and right profundoplasty with bovine patch angioplasty. Currently recovering well. pain appears well controlled and she seems to be doing well by all accounts this morning. We will plan on normalizing her today and work on disposition planning. She continues to do well could potentially go home as soon as tomorrow. Advance heparin drip to therapeutic dosage. Hep-Lock IV Discontinue Mazariegos Advance diet Diabetes consult PT OT eval Anticoagulation: hep gtt Antiplatelet: ASA 81 Shiv Middleton MD 02/05/2019 Pager: [phone] * Marni Hernandez MD - 02/04/2019 8:50 PM EDT Surgery Post Op Check Jennifer Branch is a 58 y.o. female status post right femoral endarterectomy, revision of proximalvein bypass with bovine patch angioplasty, right profunda plasty with bovine patch angioplasty S: No nausea/vomiting, chest pain, SOB, pain well controlled, notes some soreness to right groin, feels it is tolerable. Has not yet had a meal, tolerated snacks without a problem. O: Temp: [36.4 ??C (97.5 ??F)-36.9 ??C (98.4 ??F)] Heart Rate: [53-61] Resp: [11-17] BP: (114-148)/(43-93) SpO2: [89 %-99 %] Heart Rate from SpO2: [53 bpm-60 bpm] I/O last 3 completed shifts: In: 1500 [I.V.:1500] Out: 500 [Urine:250; Blood:250] I/O this shift: In: - Out: 310 [Urine:310] Physical Exam General: NAD, resting comfortably HEENT: PERRL, anicteric sclerae CVS: Regular rate Pulm: Breathing comfortably on RA Abd: soft, non tender, non distended Ext: RLE: Groin incision site with sterile dressing in place, minimal drainage evident on medial aspect. No visible hematoma, no ecchymosis or erythema. No edema. Skin warm and pink. No tissue loss. Brisk capillary refill. Palpable DP pulse. LLE: No edema. Skin warm and pink. No tissue loss. Brisk capillary refill Neuro: CN 2-12 grossly intact, nonfocal, moving all extremities. Sensation intact in extremities bilaterally symmetric. Motor function intact in extremities, bilaterally symmetric. AP Jennifer Branch is a 58 y.o. female status post right femoral endarterectomy, revision of proximal vein bypass with bovine patch angioplasty, right profunda plasty with bovine patch angioplasty, currently in stable condition - pain well controlled - hemodynamically stable - ASA, heparin 500U/hr - carb control diet, ISS - floor status, full code Marni Hernandez MD Vascular Surgery 02/04/19 * Mabel Diaz RN - 02/04/2019 11:29 AM EDT Images from the original note were not included. Patient Name: Jennifer Branch Patient Age: 58 y.o. Birthdate: 1960 Admit date: 02/04/2019 Attending Physician: Jaxon Fontaine MD Skin: documented in this encounter H&P Notes * Jose Juan Keith MD - 02/04/2019 11:31 AM EDT Vascular Surgery History and Physical CC/Planned Operation: Redo right femoral endarterectomy with arterial reconstruction HPI: 58 year old diabetic former smoker with a history of PAD. She underwent RLE bypass angioplastyin April. She has persistently elevated velocities in the inflow artery with evidence of a focal dissection on duplex. She now presents for open revision. 2001 L CEA (Dr Fong) 2004 R CEA (Dr Avendano) 2007 R fem-AK-pop bypass with GSV (Dr Avendano) 2012 L EIA stent (8x60 SE p7), RLE vein graft HYDROCRANE OPERATOR (Dr Avendano) 04/27/18 R TEST BORING CREW CHIEF/proximal graft and distal graft/pop HYDROCRANE OPERATOR (6mm and 5mm balloons) (Dr. Fontaine) Active Hospital Problems Diagnosis ??? PVD (peripheral vascular disease) Resolved Hospital Problems No resolved problems to display. Active Non-Hospital Problems Diagnosis ??? Lung nodule ??? Proliferative diabetic retinopathy of left eye ??? Obesity ??? Hypertension ??? Hyperlipidemia ??? Sleep apnea ??? Hypothyroidism ??? Depression ??? PDR (proliferative diabetic retinopathy) ??? Intermittent claudication ??? PAD (peripheral artery disease) ??? 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 Carotid stenosis ??? Hyperkeratosis palmaris et plantaris Anticoagulation: Pradaxa, RLE bypass, lifelong Antiplatelet: Aspirin / Pletal, PAD, lifelong Review of Systems: A full review encompassing at least 10 organ systems including general, neuro, pulm, cardiac, GI, , MSK, Endo, and Psych was negative other than listed in the HPI. Past Medical History: Past Medical History: Diagnosis Date ??? Allergy Sulfa, Penicillin ??? Allergy ??? Antiplatelet or antithrombotic long-term use on pletal and pradaxa for circulation ??? Cardiac disease PAD ??? Cataract ??? Claudication has had proceures in leg for ??? CPAP (continuous positive airway pressure) dependence Tolerates CPAP ??? Depression 02/18/2015 ??? Diabetes A1C is a little high ??? Diabetes mellitus Type 1 ??? DM eyes ??? Heart valve disease ??? High blood pressure fluctuates ??? Hyperlipidemia ??? Hypertension ??? Hyperthyroidism ??? Motion sickness not bad ??? Obstructive sleep apnea ??? Post-operative nausea and vomiting had once years ago ??? Skin disease Hyperkeratosis palmaris et plantaris ??? Thyroid disease Hyperthyroidism ??? Transfusion history a long time ago Past Surgical History: Past Surgical History: Procedure Laterality Date ??? CATARACT EXTRACTION, EXTRACAPSULAR, W/ LENS INSERTION Right 06/19/2013 OD - Dr Szymanski ??? CATARACT EXTRACTION, EXTRACAPSULAR, W/ LENS INSERTION Left 07/03/2018 OS - Dr. Szymanski ??? PRO BRONCHOSCOPY, DIAGNOSTIC N/A 06/21/2018 BRONCHOSCOPY, DIAGNOSTIC (WRVU 2.78) performed by César Escobar MD at [facility] MAIN OR ? ? PRO EDG FLEXIBLE TRANSORAL ABLATE TUMOR POLYP/LESION W/DILATION & WIRE N/A 06/22/2016 EGD, TRANSORAL; WITH ABLATION OF TUMOR(S), POLYP(S), OR OTHER LESION(S) (WRVU 4.26) performed by Christos Donald MD at [facility] ENDOSCOPY ??? PRO INJECT NERV BLCK, INTERCOST, MULTPL Right 06/21/2018 NERVE BLOCK, INTERCOSTAL NERVE, MULTIPLE (WRVU 1.68) [facility] ??? PRO THORACOSCOPY WITH THERAPEUTIC WEDGE RESECTION INITIAL UNILAT Right 06/21/2018 @THORACOSCOPY, SURG; W/THERAPEUTIC WEDGE RESECTION, INIT UNILATERAL (WRVU 14.5) performed by César Escobar MD at [facility] MAIN OR ??? PRO TX EXTENSIVE RETINOPATHY, PHOTOCOAGULATION Left 2017 PRP OS - [place], [place] ??? PRO UPPER GI ENDOSCOPY, BIOPSY N/A 10/24/2016 UPPER GASTROINTESTINAL ENDOSCOPY,WITH BIOPSY SINGLE OR MULTIPLE (WRVU 2.49) performed by Agapito Parmar MD at [facility] ENDOSCOPY ??? PRO UPPER GI ENDOSCOPY, DIAGNOSTIC N/A 06/22/2016 EGD, UPPER GI ENDOSCOPY performed by Christos Donald MD at [facility] ENDOSCOPY ??? RETINAL LASER SURGERY Left [...] SFA stents ??? VASCULAR SURGERY 1009 Right TEST BORING CREW CHIEF-AK pop vein graft ??? VS ARTERIOGRAM LOWER EXTREMITY VASCULAR SURGERY 04/27/2018 VS Arteriogram Lower Extremity Vascular Surgery 04/27/2018 Jaxon Fontaien MD [facility] INTERVENTIONL RAD ??? YAG CAPSULOTOMY Bilateral 02/27/15 YAG CAP OU - Nessa Social Hx: Social History Socioeconomic History ??? Marital status: [...] Last attempt to quit: 08/14/2014 Years since quittin.4 ??? Smokeless tobacco: Never Used ??? Tobacco [...] file Gets together: Not on file Attends mandaen service: Not on file Active member of [...] History Narrative ??? Not on file Family Hx: Negative for Thrombosis, Bleeding Disorders Family History Problem Relation Age of Onset [...] Neg Hx Medications: No current facility-administered medications on file prior to encounter. Current Outpatient Medications on File Prior to Encounter Medication Sig Dispense Refill ??? levothyroxine (SYNTHROID) 125 mcg Tablet TAKE ONE TABLET BY MOUTH EVERY DAY 90 tablet 3 ??? simvastatin (ZOCOR) 40 mg Tablet ??? citalopram (CELEXA) 40 mg Tablet Take 20 mg by mouth 2 times daily. ??? pantoprazole (PROTONIX) 40 mg Tablet, Delayed Release (E.C.) TAKE ONE TABLET BY MOUTH TWICE A DAY 98 ??? carvedilol (COREG) 3.125 mg Tablet Take 1.56 mg by mouth 2 times daily (with meals). ??? dabigatran (PRADAXA) 150 mg Capsule Take 1 capsule by mouth 2 times daily. 180 capsule 3 ??? losartan (COZAAR) 100 mg Tablet Take 50 mg by mouth daily. ??? cilostazol (PLETAL) 100 mg tablet Take 1 tablet by mouth 2 times daily. 180 tablet 3 ??? aspirin 81 mg EC tablet Take 81 mg by mouth daily. ??? insulin aspart U-100 (NOVOLOG U-100 INSULIN ASPART) Solution Inject subcutaneously 3 times daily (with meals). ??? ONETOUCH ULTRA TEST Strip 1 strip by Other route 4 times daily. 4 ??? Diabetic Supplies, Miscellan. Misc Form faxed to [employer] for pump supplies. 100 each 12 ??? Magnesium 250 mg Tab Take by mouth daily. ??? insulin lispro (HUMALOG) 100 unit/mL injection Inject 55-60 Units subcutaneously continuous. Via insulin pump Allergies: Allergies Allergen Reactions ??? Sulfa (Sulfonamide Antibiotics) Other (See Comments) Renal failure, bleeding ??? Pcn [Penicillins] Unknown Physical Exam: Vital Signs: Temp: -- Heart Rate: -- Resp: -- BP: -- SpO2: -- Heart Rate from SpO2: -- BMI: General: NAD, resting comfortably HEENT: PERRL, anicteric sclerae CVS: Regular Pulm: Normal work of breathing on room air Abd: soft, non tender, non distended Vasc: RLE: No edema. No tissue loss. LLE: No edema. No tissue loss. Neuro: Grossly nonfocal, moving all extremities. OSH 01/25 Labs: hgb 11.8 Cr 1 Studies/Imaging: Duplex: Elevated velocities at inflow artery to RLE bypass with possible dissection. Assessment and Plan: 58 year old diabetic former smoker with a history of PAD. She underwent RLE bypass angioplasty in April. She has persistently elevated velocities in the inflow artery with evidence of a focal dissection on duplex. She now presents for open revision. Last dose of Pradaxa and Pletal on Monday. documented in this encounter Miscellaneous Notes * Plan of Care - Mandy Ron RN - 02/08/2019 3:36 AM EDT Problem: Patient Care Overview Goal: Plan of Care Review Outcome: Ongoing (Interventions Implemented as Appropriate) 02/08/19 0330 Coping/Psychosocial Plan Of Care Reviewed With patient Plan of Care Review Progress improving OUTCOME EVALUATION NOTE: OUTCOME SUMMARY: Pt states her pain Improving, pain was well managed with one oxycodone and scheduled tylenol. Area around incision continues to be firm. Blood sugars were controlled overnight vitals stable. She is voiding adequately and having good oral intake. She is ambulating well in the wheeler independently and walked a few laps overnight. Oxygen saturation dose drop when she sleeps if she does not have CPAP on. Encourages her to wear CPAP while sleeping. PLAN MOVING FORWARD: Monitor hematoma site INDIVIDUALIZED FALL PREVENTION INTERVENTIONS: Patient-specific fall risk factors per assessment: [current deficits]: Post surgery Assistance [level of assistance required for transfers and ambulation]: Independent Supervision [direct monitoring required during toileting and ADLs]: Independent Surveillance [continuous indirect monitoring]: Rounding, call light within reach Patient-specific fall prevention interventions for sensory deficits provided, if applicable: [X] N/A CPG GOAL OUTCOME EVALUATION: * Plan of Care - Yue Lee RN - 02/07/2019 2:54 PM EDT Problem: Patient Care Overview Goal: Plan of Care Review Outcome: Ongoing (Interventions Implemented as Appropriate) 02/06/19154802/06/192201 Coping/Psychosocial Plan Of Care Reviewed With -- patient Plan of Care Review Progress progress toward functional goals as expected -- OUTCOME EVALUATION NOTE: OUTCOME SUMMARY: Vital signs stable. Pain intermittently, treated with oxycodone and tylenol. Voiding adequately. Nobowel movement today. Right groin incision has a hematoma. The team is aware. Area is marked and dressed with gauze and tape. She ambulates to her chair and the rest room independently. The duplex study was canceled today and the patient is expressing she would like to go home. The team is aware. She denies any chest pain or shortness of breath. PLAN MOVING FORWARD: Manage pain, encourage activity, Q4 neurovascular checks INDIVIDUALIZED FALL PREVENTION INTERVENTIONS: Patient-specific fall risk factors per assessment: [current deficits]: IV's, masimo, generalized weakness Assistance [level of assistance required for transfers and ambulation]: Indpendent Supervision [direct monitoring required during toileting and ADLs]: Eyes on Surveillance [continuous indirect monitoring]: Masimo, hourly rounding Patient-specific fall prevention interventions for sensory deficits provided, if applicable: [X] Yes personal items within reach, clutter free environment, call leggett within reach. CPG GOAL OUTCOME EVALUATION: Goal: Fall Prevention-Safe Patient Handling Outcome: Ongoing (Interventions Implemented as Appropriate) 02/06/19220102/07/19941 Restraint Interventions Safety Promotion/Fall Prevention -- nonskid shoes/slippers when out of bed;safety round/check completed Vazquez Fall Risk History of Falling -- 0 Secondary Diagnosis -- 15 Ambulatory Aids -- 0 Intravenous Therapy/Heparin/Saline Lock -- 20 Gait/Transferring -- 0 Mental Status -- 0 Score -- 35 OTHER Vazquez Fall Risk -- Med Positioning Body Position -- independent Activity Activity Type -- activity adjusted per tolerance Activity Assistance Provided -- independent Assistive Device Utilized none -- Goal: Infection Control Outcome: Ongoing (Interventions Implemented as Appropriate) 02/07/19941 Coping Strategies Supportive Measures active listening utilized Safety Interventions Isolation Precautions standard precautions maintained Infection Prevention environmental surveillance performed Goal: Discharge Needs Assessment 10/30/19 1549 Discharge Needs Assessment Concerns To Be Addressed adjustment to diagnosis/illness concerns Readmission Within The Last 30 Days no previous admission in last 30 days Provider Choice List(s) Given no Equipment Needed After Discharge wound care supplies Activity/Self Care Review of Systems Equipment Currently Used at Home none;glucometer;medication pump Living Environment Transportation Available car;family or friend will provide * Plan of Care - Nathaly Sánchez RN - 02/07/2019 1:30 AM EDT OUTCOME EVALUATION NOTE: OUTCOME SUMMARY: Pt reported low pain, given prn tylenol w/good effect. BiPAP used per pt while asleep. UFHs drawn Q6h, 1 therapeutic result, pending 2nd therapeutic result. Pt noted new s/s, high pain @ groin site, new drainage, and new swelling @ groin site, upon assessment new hard lump present next to incision, notified and assessed, pt made NPO w/plan to have duplex done today to assess site for hematoma. PLAN MOVING FORWARD: Planned for discharge today. Maintain BP <160. If 2nd UFH therapeutic, draw w/AM labs, otherwisecontinue drawing Q6h. Maintain BiPAP @ PM. Encourage ambulation and reporting urine occurrences. INDIVIDUALIZED FALL PREVENTION INTERVENTIONS: Patient-specific fall risk factors per assessment: [current deficits]: IV site, insulin pump, BiPAP Assistance [level of assistance required for transfers and ambulation]: Independent Supervision [direct monitoring required during toileting and ADLs]: Independent, eyes on Surveillance [continuous indirect monitoring]: mik Ma rounding Patient-specific fall prevention interventions for sensory deficits provided, if applicable: N/A CPG GOAL OUTCOME EVALUATION: Patient Vitals for the past 24 hrs: BP Temp Temp src Resp SpO2 02/06/19 2355 161/68 37 ??C (98.6 ??F) Oral 16 93 % 02/06/19 2000 100/66 37.5 ??C (99.5 ??F) Oral 16 91 % 02/06/19 1515 143/62 36.7 ??C (98.1 ??F) Oral 16 92 % 02/06/19 1110 126/56 36.6 ??C (97.9 ??F) Oral 17 94 % 02/06/19 0740 137/55 36.9 ??C (98.4 ??F) Oral 17 (!) 88 % * Plan of Care - Lulu Greene RN - 02/06/2019 4:16 PM EDT Problem: Patient Care Overview Goal: Plan of Care Review Outcome: Ongoing (Interventions Implemented as Appropriate) 02/06/19 4849 Coping/Psychosocial Plan Of Care Reviewed With patient;significant other Plan of Care Review Progress progress toward functional goals as expected OUTCOME EVALUATION NOTE: OUTCOME SUMMARY: Pt did well today. Ambulating independently. Significant other came to visit for most the afternoon, walked off unit. Heparin titrated per protocol, Next UFH due at appx 2220 hours. Complaints of pain with movement but is tolerant and refused pain managemtn medication throughout shift. BGM results continue to be maintained by personal pump. Encourage PO fluid intake to promote increased output. Discharge board updated with intent 02/07/2019. PLAN MOVING FORWARD: Encourage ambulation with anticipated discharge 02/07/19 INDIVIDUALIZED FALL PREVENTION INTERVENTIONS: Patient-specific fall risk factors per assessment: [current deficits]: PIV placement, incision/surgical site to right groin. Assistance [level of assistance required for transfers and ambulation]: Independent Supervision [direct monitoring required during toileting and ADLs]: Independent with no supervisionrequired. Surveillance [continuous indirect monitoring]: Purposeful rounding, clyde leggett within reach. Patient-specific fall prevention interventions for sensory deficits provided, if applicable: [X] Yes Non slid slipper socks OOB CPG GOAL OUTCOME EVALUATION: Goal: Fall Prevention-Safe Patient Handling Outcome: Ongoing (Interventions Implemented as Appropriate) 02/06/19 0903 02/06/19 1105 02/06/19 1112 Restraint Interventions Safety Promotion/Fall Prevention -- -- -- Vazquez Fall Risk History of Falling 0 -- -- Secondary Diagnosis 15 -- -- Ambulatory Aids 0 -- -- Intravenous Therapy/Heparin/Saline Lock 20 -- -- Gait/Transferring 0 -- -- Mental Status 0 -- -- Score 35 -- -- OTHER Vazquez Fall Risk Med -- -- Positioning Body Position independent -- -- Activity Activity Type -- -- ambulated in wheeler Activity Assistance Provided -- -- independent Assistive Device Utilized -- none -- 02/06/19 1549 Restraint Interventions Safety Promotion/Fall Prevention nonskid shoes/slippers when out of bed;safety round/check completed Vazquez Fall Risk History of Falling -- Secondary Diagnosis -- Ambulatory Aids -- Intravenous Therapy/Heparin/Saline Lock -- Gait/Transferring -- Mental Status -- Score -- OTHER Vazquez Fall Risk -- Positioning Body Position -- Activity Activity Type -- Activity Assistance Provided -- Assistive Device Utilized -- Goal: Infection Control Outcome: Ongoing (Interventions Implemented as Appropriate) 02/06/1990202/06/19 154 Coping Strategies Supportive Measures -- active listening utilized;goal setting facilitated;self- reflection promoted;positive reinforcement provided Safety Interventions Isolation Precautions standard precautions maintained -- Infection Prevention equipment surfaces disinfected;personal protective equipment utilized;rest/sleep promoted -- Goal: Discharge Needs Assessment 02/06/19 154 Discharge Needs Assessment Concerns To Be Addressed adjustment to diagnosis/illness concerns Readmission Within The Last 30 Days no previous admission in last 30 days Provider Choice List(s) Given no Equipment Needed After Discharge wound care supplies Activity/Self Care Review of Systems Equipment Currently Used at Home none;glucometer;medication pump Living Environment Transportation Available car;family or friend will provide * Plan of Care - Miracle Blanco RN - 02/06/2019 2:30 AM EDT Problem: Patient Care Overview Goal: Plan of Care Review Outcome: Ongoing (Interventions Implemented as Appropriate) 02/06/19 0215 Coping/Psychosocial Plan Of Care Reviewed With patient OUTCOME EVALUATION NOTE: OUTCOME SUMMARY: Uneventful night, denies pain, right groin site no bruising, no hematoma. Palpable BLE DP and PT pulses. Wears her CPAP at night. Using her insulin pump to correct her blood sugar.??With adequate urine output. Heparin drip per protocol. PLAN MOVING FORWARD: Pain control, up and ambulate in am. INDIVIDUALIZED FALL PREVENTION INTERVENTIONS: Patient-specific fall risk factors per assessment: [current deficits]: Narcotics, needs assistance getting in and out of bed or chair, pain with movement/ ambulation. ?? Assistance [level of assistance required for transfers and ambulation]: IV pole, Independent, Non-skid slippers Supervision [direct monitoring required during toileting and ADLs]: Eyes on . Surveillance [continuous indirect monitoring]: Purposeful rounding; call light in reach, Family at bedside Patient-specific fall prevention interventions for sensory deficits provided, if applicable: Lighting adjusted for safety. CPG GOAL OUTCOME EVALUATION: ?? * Plan of Care - Mandy Ron RN - 02/05/2019 4:48 PM EDT Problem: Patient Care Overview Goal: Plan of Care Review Outcome: Ongoing (Interventions Implemented as Appropriate) 02/05/19 1642 Coping/Psychosocial Plan Of Care Reviewed With patient Plan of Care Review Progress improving OUTCOME EVALUATION NOTE: OUTCOME SUMMARY: Pt had a good day today, pain was well controlled with just PO tylenol, pt ambulated in the hallwaywith PT and then later independently. Is voiding without difficulty. Incision is soft with small amount of drainage that is dry. VSS. Pt using own Insulin pump to control blood sugars. PLAN MOVING FORWARD: Discharge tomorrow. INDIVIDUALIZED FALL PREVENTION INTERVENTIONS: Patient-specific fall risk factors per assessment: [current deficits]: IV tubing, post surgical Assistance [level of assistance required for transfers and ambulation]: Independent Supervision [direct monitoring required during toileting and ADLs]: Independent Surveillance [continuous indirect monitoring]: Rounding Patient-specific fall prevention interventions for sensory deficits provided, if applicable: NA CPG GOAL OUTCOME EVALUATION: * Plan of Care - Tevin Sullivan - 02/05/2019 1:27 PM EDT Physical Therapy Evaluation Patient profile: Jennifer Branch is a 58 y.o. female admitted on 02/04/[address] Jaxon Fontaine MD. Per MD notes, 58 y.o. female 1 Day Post-Op from right femoral endarterectomy, revision of proximal vein bypass with bovine patch plasty and right profundoplasty with bovine patch angioplasty. Patient with the following active problems: Past Medical History: Diagnosis Date ??? Allergy [...] 2.78) performed by César Escobar MD at [facility] MAIN OR ? ? PRO EDG FLEXIBLE TRANSORAL ABLATE TUMOR POLYP/LESION W/DILATION & WIRE N/A 06/22/2016 EGD, TRANSORAL; WITH ABLATION OF TUMOR(S), POLYP(S), OR OTHER LESION(S) (WRVU 4.26) performed by Christos Donald MD at [facility] ENDOSCOPY ??? PRO INJECT NERV BLCK, INTERCOST, MULTPL Right 06/21/2018 NERVE BLOCK, INTERCOSTAL NERVE, MULTIPLE (WRVU 1.68) [facility]?? PRO REOPERATION, BYPASS GRAFT Right 02/04/2019 @RE-OP FOR RE-DO LOWER EXTREMITY BYPASS GRAFT, >1 MONTH P\ ORIGINAL SURGERY, ADD-ON CODE (WRVU 3.08) performed by Jaxon Fontaine MD at [facility] MAIN OR ??? PRO THORACOSCOPY WITH THERAPEUTIC WEDGE RESECTION INITIAL UNILAT Right 06/21/2018 @THORACOSCOPY, SURG; W/THERAPEUTIC WEDGE RESECTION, INIT UNILATERAL (WRVU 14.5) performed by César Escobar MD at [facility] MAIN OR ??? PRO THROMBOENDARTECTMY FEMORAL COMMON Right 02/04/2019 @ENDARTERECTOMY, COMMON FEMORAL W OR W/O PATCH GRAFT (WRVU 15.31) performed by Jaxon Fontaine MD [facility] MAIN OR ??? PRO THROMBOENDARTECTMY FEMORAL DEEP Right 02/04/2019 @ENDARTERECTOMY, PROFUNDAPLASTY, DEEP, PROFUNDA FEMORIS W OR W/O PATCH GRAFT (WRVU 18.58) performedby Jaxon Fontaine MD at [facility] MAIN OR ??? PRO TX EXTENSIVE RETINOPATHY, PHOTOCOAGULATION Left 2017 PRP OS - [place], [place] ??? PRO UPPER GI ENDOSCOPY, BIOPSY N/A 10/24/2016 UPPER GASTROINTESTINAL ENDOSCOPY,WITH BIOPSY SINGLE OR MULTIPLE (WRVU 2.49) performed by Agapito Parmar MD at [facility] ENDOSCOPY ??? PRO UPPER GI ENDOSCOPY, DIAGNOSTIC N/A 06/22/2016 EGD, UPPER GI ENDOSCOPY performed by Christos Donald MD at [facility] ENDOSCOPY ??? RETINAL LASER SURGERY Left [...] SFA stents ??? VASCULAR SURGERY 1009 Right TEST BORING CREW CHIEF-AK pop vein graft ??? VS ARTERIOGRAM LOWER EXTREMITY VASCULAR SURGERY 04/27/2018 VS Arteriogram Lower Extremity Vascular Surgery 04/27/2018 Jaxon Fontaine MD [facility] INTERVENTIONL RAD ??? 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 They do not require physical assist. She has a boyfriend as well. She is normally indep, has no assistive devices. Plans to go home at d/c. Currently a smoker.. Precautions/Special Considerations: R groin incision, desat on room air Mobility and Positioning Recommendations: ?? Pt. Is able to ambulate indep. ?? Please encourage up to chair for meal times as able. ?? Pt encouraged to ambulate frequently with staff, getting into the bathroom for toileting and walking out in the wheeler >/= 3 times daily as able. Subjective: ???feel fine could go home today if they'd let me?? Objective: Pt seen for evaluation today. Pain: Tolerable at R groin Vital Signs: sats 93% on room air at rest, decreases to 83% when walking though she is aymptomatic.HR 60s resting, 70s with activity. Mental Status: alert, oriented to person, place, and time Musculoskeletal: ROM: WFL Strength: WFL Bed Mobility: Supine to Sit: indep Sit to Supine: indep Transfers: Sit to Stand: indep Stand to Sit: indep Bed to Chair: indep Gait: Distance: 150 feet Device used: none Level of assist: indep Balance: Sitting Static: good Sitting Dynamic: good Standing Static: good Standing Dynamic / Gait: good Education: patient has been educated on Role of therapy and Discharge planning and verbalizes understanding. Patient status, treatment, and mobility recommendations discussed with nursing. Assessment: Jennifer Branch was seen today for physical therapy evaluation. Presents with decreased sats while walking on room air, but otherwise, is indep and has no PT needs. Discharge Recommendations: Based on the current findings, Anticipated Discharge Disposition: home when medically ready for hospital discharge. Consult Recommendations: No other consults recommended at this time Equipment needs: No equipment necessary Plan: Therapy Frequency: evaluation only . Patient/family understand and agree with plan as stated above. 2017 PT Evaluation Code Rationale: ?? Diagnosis & Pertinent Co-Morbidities, personal factors, and present illness affecting Plan of Care: (see above); Additional personal factors or co- morbidities that impact plan: ?? Total # of Factors: 0 1-2 3+ x ?? Examination of body system impairments, functional limitations and behaviors, and/or participation restrictions. Addressing 1-2 elements Addressing 3 + elements x Addressing 4 + elements ?? Clinical presentation: See assessment above. Stable/Uncomplicated Evolving/Fluctuating Symptoms Unstable/Unpredictable x ?? Clinical decision making of low complexity based on pt's functional performance as outlined in this evaluation. Time IN / OUT:3064-1457 Total Evaluation Minutes, Physical Therapy: 25(Eval) Tevin Sullivan, PT Pager: [phone] Physical Therapy Inpatient Rehabilitation Department * Initial Assessments - Shantel Palma RN - 02/05/2019 11:39 AM EDT Office of Care Management Initial Assessment Shantel Palma RN reviewed record and discussed patient with Care Team. Source of Information: pt and her boyfriend Tevin Chowdhuryoint [phone] Introduced self/reviewed role; services accepted. Reason for Hospitalization: Redo right femoral endarterectomy with arterial reconstruction ?? HPI: 58 year old diabetic former smoker with a history of PAD. She underwent RLE bypass angioplastyin April. She has persistently elevated velocities in the inflow artery with evidence of a focal dissection on duplex. She now presents for open revision. ?? 2000 L CEA (Dr Fong) 2004 R CEA (Dr Avendano) 2007 R fem-AK-pop bypass with GSV (Dr Avendano) 2012 L EIA stent (8x60 SE p7), RLE vein graft HYDROCRANE OPERATOR (Dr Avendano) 04/27/18 R TEST BORING CREW CHIEF/proximal graft and distal graft/pop HYDROCRANE OPERATOR (6mm and 5mm balloons) (Dr. Fontaine)Jose Juan Keith MD Date of Service: 02/04/2019 11:31 AM Past Medical History: Diagnosis Date ??? Allergy Sulfa, Penicillin ??? Allergy ??? Antiplatelet or antithrombotic long-term use on pletal and pradaxa for circulation ??? Cardiac disease PAD ??? Cataract ??? Claudication has had proceures in leg for ??? CPAP (continuous positive airway pressure) dependence Tolerates CPAP ??? Depression 02/18/2015 ??? Diabetes A1C is a little high ??? Diabetes mellitus Type 1 ??? DM eyes ??? Heart valve disease ??? High blood pressure fluctuates ??? Hyperlipidemia ??? Hypertension ??? Hyperthyroidism ??? Motion sickness not bad ??? Obstructive sleep apnea ??? Post-operative nausea and vomiting had once years ago ??? Skin disease Hyperkeratosis palmaris et plantaris ??? Thyroid disease Hyperthyroidism ??? Transfusion history a long time ago Hospitalizations Within the Past 30 Days: see H&P Anticipated Length Of Stay (If known): Current Decision-Making Capacity: a.ox3 Advance Care Planning: Has written on file.Dtr Benita Queen [phone] then siobhan Moss [phone] are MPOAs Current Coping/Education/Information Needs: CM explained VNA/SNF/outpt services with payment. Current Functional Ability: SBA Functional Status Prior to Admission: 100%ADL satish/uses CAP at HS/drives self Home Environment: lives in duplex 2 story, with Bed/bath/kitchen on first floor with 1 step YTD, with boyfriencrystal Prado Social & Family Supports/Community Resources: Has written AD on file and supportive adult children to assist pt and has toyinfriencrystal Abarca to assist as well. Behavioral Health History: denied Substance Use/Abuse: denied Other Pertinent/Service Specific Information: pt adamently refused to accept any VNA or rehab services ,stating that I am very resourceful and do not want any help . Health/Prescription Coverage: Primary Insurance: MEDICARE Secondary Insurance: MEDICAID [place] Prescription Coverage: yes Preferred Pharmacy: [facility] Primary Care Provider: Shirley Yu MD [phone] Patient/Caregiver Goals of Treatment: home with family support Potential Needs for Transition of Care: Rehab/SNF: declined Home Health: declined DME: owns CPAP from [employer] Dialysis: na Community Resources: has [facility] Transportation: family Anticipated Barriers to Discharge/Special Considerations: pt's acceptance of care options offered Assessment: 58yowf in w/ open vascular revision scheduled. Pt a,ox3, has supportive boyfriend Tevinat bedside,. Pt declined all services needed at [place]. CM explained how to contact CM if this changes. CM emailed Ayan to update Demo sheet with Tevin Prado name and number Plan: A member of the Care Management team will continue to monitor progress, follow for continuityof care and assist with transition of care planning. Shantel Palma RN Pager: [phone] * Consult Note - Margie Barron L, PETROLOGY TEACHER - 02/05/2019 11:30 AM EDT Diabetes Management Team Inpatient Consult Date of Consultation: 02/05/2019 Consult Requested by: vascular surgery Reason for Consultation: Jennifer Branch is a 58 y.o. female with PMH significant for T1 DM, PVD,PAD, carotid stenosis, HLD, HTN, hypothyroidism and PDR who was admitted on 02/04/2019 currently being treated for Redo right femoral endarterectomy with arterial reconstruction. We are being consultedto assist with diabetes management and to provide a review of skilled nursing diabetes care. Diabetes History: Jennifer Branch has had diabetes since age 15 (41 years) She thought she had strept throat went tothe doctors BG was 600s she had horrible yeast infection in her throat and fruity breath. She was admitted to the hospital and diagnosed with T1 DM. She has used an insulin pump for many years, she also has a continuous glucose sensor (CGM), states she has had much improved control with the CGM> Current outpatient diabetes regimen: Diabetes Provider: PCP Medications: Pump: Medtronic Minimed Insulin Type Novolog Basal Settings: 00:00 1.2 units per hour 04:30 1.15 units per hour 12:00 1.4 units per hour 16:00 1.25 units per hour Total Daily Basal 29.6 units Bolus Settings: I:C ratio 1:8 Correction Factor 30 Target Range : 100-110 Monitoring is done Dexcom C5 CGM (not with her) Most recent HA1c was done one month ago by patient report and was 8.0%, . Typical diet is: Drinks coffee does not like water Breakfast- 2 toast with peanut butter Lunch- skips or 1/2 sandwich Supper- meat small potato lots of veggies Typical exercise regimen is not reviewed Trouble with hypoglycemia none recently - Does not have glucagon at home Diabetes Complications Status: Eyes: PRD Kidneys: CKD Feet: None Sensory: None Autonomic: None Cardiac: None Current Hospital Diabetes Care: Medications: Lispro moderate sliding scale q 4 hrs Monitoring: q 4 hrs Diet: level 2 carb control ROS: Deferred PMH Past Medical History: Diagnosis Date ??? Allergy Sulfa, Penicillin ??? Allergy ??? Antiplatelet or antithrombotic long-term use on pletal and pradaxa for circulation ??? Cardiac disease PAD ??? Cataract ??? Claudication has had proceures in leg for ??? CPAP (continuous positive airway pressure) dependence Tolerates CPAP ??? Depression 02/18/2015 ??? Diabetes A1C is a little high ??? Diabetes mellitus Type 1 ??? DM eyes ??? Heart valve disease ??? High blood pressure fluctuates ??? Hyperlipidemia ??? Hypertension ??? Hyperthyroidism ??? Motion sickness not bad ??? Obstructive sleep apnea ??? Post-operative nausea and vomiting had once years ago ??? Skin disease Hyperkeratosis palmaris et plantaris ??? Thyroid disease Hyperthyroidism ??? Transfusion history a long time ago Current Hospital Medications: ??? aspirin 81 mg Oral Daily ??? carvedilol 1.56 mg Oral BID WC ??? citalopram 20 mg Oral BID ??? levothyroxine 125 mcg Oral QAM ??? losartan 50 mg Oral Daily ??? pantoprazole 40 mg Oral Daily ??? simvastatin 40 mg Oral QPM Infusions: ??? heparin 1,450 Units/hr (02/05/19 0830) PRN: heparin (porcine) AND heparin, INSULIN PUMP (PATIENT OWN), Glucose 40% oral gel OR dextroseOR glucagon (human recombinant), gelatin adsorbable, labetalol, hydrALAZINE, ondansetron ORondansetron, acetaminophen, oxyCODONE, morphine Allergy: Allergies Allergen Reactions ??? Sulfa (Sulfonamide Antibiotics) Other (See Comments) Renal failure, bleeding ??? Pcn [Penicillins] Unknown Social history: Social History Tobacco Use ??? Smoking status: Former Smoker Packs/day: 0.50 Years: 30.00 Pack years: 15.00 Types: Cigarettes Last attempt to quit: 08/14/2014 Years since quittin.4 ??? Smokeless tobacco: Never Used ??? Tobacco comment: Smoked 1 ppd for 30 years Substance Use Topics ??? Alcohol use: No ??? Drug use: No Family history: Family History Problem Relation Age of Onset [...] Blindness Neg Hx ??? Amblyopia Neg Hx Vitals Last value Range last 24 hrs Temperature Temp: 36.9 ??C (98.4 ??F) Temp: [36.4 ??C (97.5 ??F)-37.2 ??C (99 ??F)] Heart Rate Heart Rate: 59 Heart Rate: [53-62] Blood Pressure BP: 130/50 BP: (105-158)/(41-93) Respiratory Rate Resp: 16 Resp: [11-18] SpO2 SpO2: (!) 88 % SpO2: [88 %-100 %] Physical Exam: deferred Labs: Recent Labs 02/05/19 0839 02/05/19 0448 WBC 7.4 6.5 HGB 10.4* 9.9* HCT 33.8* 32.4* PLATELET 209 196 NEUTROABS 5.36 4.28 Recent Labs 02/05/19 0448 NA 141 K 4.2 CL 109* CO2 25 BUN 23* CREATININE 1.41* GLUCOSE 98 Recent Labs 02/05/19 0448 CALCIUM 8.0* Recent Labs 02/05/19 0448 GLUCOSE 98 Assessment: Patient is a 58 y.o. years old female with PMH significant for DM (Last A1C of 8.0%) who was admitted on 02/04/2019 for Redo right femoral endarterectomy with arterial reconstruction. Diabetes with improving control and currently complicated by stress of hospitalization. Currently with variability of blood glucose levels while hospitalized requiring adjustment of insulin regimen and DM medications. She states she is capable of continuing her own insulin administration via pump during her hospitalstay. She displays ability to safely self administer insulin via pump. She does not have her sensorhere and would like every 4 hour BG checks at this time. Vera Taylor TRASHMAN CDE met with Casandra and her boyfriend Tevin, she taught Tevin how to administer glucagon if needed. Rx for glucagon nasal spray pended for discharge. Plan: 1. {Patient managed Insulin Pump, check POC BG every 4 hours on hospital POC machine. partnership manager diabetes care: Medications - Outpatient treatment regimen recommendations pending based on the hospital course. Monitoring - continue BG tid ac & hs Diet - low fat/low carb diet Exercise - weight-bearing exercise 30 min/day, as tolerated Thank you for allowing us to provide care for your patient Margie Barron APRN Endocrinology Pager [phone] minutes of this 80 minute visit was spent with the patient in counseling on diabetes and treatment plan, reviewing all glucose and insulin data as well as relevant laboratory results with the patient, and coordination of care on the inpatient unit * Plan of Care - Althea Sean OT - 02/05/2019 10:44 AM EDT Occupational Therapy Evaluation Patient profile: Jennifer Branch is a 58 y.o. female with hx of RLE bypass angioplasty in April.She has persistently elevated velocities in the inflow artery with evidence of a focal dissection on duplex. She now presents for open revision. Past Medical History: Diagnosis Date ??? Allergy Sulfa, Penicillin ??? Allergy ??? Antiplatelet or antithrombotic long-term use on pletal and pradaxa for circulation ??? Cardiac disease PAD ??? Cataract ??? Claudication has had proceures in leg for ??? CPAP (continuous positive airway pressure) dependence Tolerates CPAP ??? Depression 02/18/2015 ??? Diabetes A1C is a little high ??? Diabetes mellitus Type 1 ??? DM eyes ??? Heart valve disease ??? High blood pressure fluctuates ??? Hyperlipidemia ??? Hypertension ??? Hyperthyroidism ??? Motion sickness not bad ??? Obstructive sleep apnea ??? Post-operative nausea and vomiting had once years ago ??? Skin disease Hyperkeratosis palmaris et plantaris ??? Thyroid disease Hyperthyroidism ??? Transfusion history a long time ago Past Surgical History: Procedure Laterality Date ??? CATARACT EXTRACTION, EXTRACAPSULAR, W/ LENS INSERTION Right 06/19/2013 OD - Dr Szymanski ??? CATARACT EXTRACTION, EXTRACAPSULAR, W/ LENS INSERTION Left 07/03/2018 OS - Dr. Szymanski ??? PRO BRONCHOSCOPY, DIAGNOSTIC N/A 06/21/2018 BRONCHOSCOPY, DIAGNOSTIC (WRVU 2.78) performed by César Escobar MD at [facility] MAIN OR ? ? PRO EDG FLEXIBLE TRANSORAL ABLATE TUMOR POLYP/LESION W/DILATION & WIRE N/A 06/22/2016 EGD, TRANSORAL; WITH ABLATION OF TUMOR(S), POLYP(S), OR OTHER LESION(S) (WRVU 4.26) performed by Christos Donald MD at [facility] ENDOSCOPY ??? PRO INJECT NERV BLCK, INTERCOST, MULTPL Right 06/21/2018 NERVE BLOCK, INTERCOSTAL NERVE, MULTIPLE (WRVU 1.68) [facility] ??? PRO REOPERATION, BYPASS GRAFT Right 02/04/2019 @RE-OP FOR RE-DO LOWER EXTREMITY BYPASS GRAFT, >1 MONTH P\ ORIGINAL SURGERY, ADD-ON CODE (WRVU 3.08) performed by Jaxon Fontaine MD at [facility] MAIN OR ??? PRO THORACOSCOPY WITH THERAPEUTIC WEDGE RESECTION INITIAL UNILAT Right 06/21/2018 @THORACOSCOPY, SURG; W/THERAPEUTIC WEDGE RESECTION, INIT UNILATERAL (WRVU 14.5) performed by César Escobar MD at [facility] MAIN OR ??? PRO THROMBOENDARTECTMY FEMORAL COMMON Right 02/04/2019 @ENDARTERECTOMY, COMMON FEMORAL W OR W/O PATCH GRAFT (WRVU 15.31) performed by Jaxon Fontaine MD [facility] MAIN OR ??? PRO THROMBOENDARTECTMY FEMORAL DEEP Right 02/04/2019 @ENDARTERECTOMY, PROFUNDAPLASTY, DEEP, PROFUNDA FEMORIS W OR W/O PATCH GRAFT (WRVU 18.58) performedby Jaxon Fontaine MD at [facility] MAIN OR ??? PRO TX EXTENSIVE RETINOPATHY, PHOTOCOAGULATION Left 2018 PRP OS - [place], [place] ??? PRO UPPER GI ENDOSCOPY, BIOPSY N/A 10/24/2016 UPPER GASTROINTESTINAL ENDOSCOPY,WITH BIOPSY SINGLE OR MULTIPLE (WRVU 2.49) performed by Agapito Parmar MD at [facility] ENDOSCOPY ??? PRO UPPER GI ENDOSCOPY, DIAGNOSTIC N/A 06/22/2016 EGD, UPPER GI ENDOSCOPY performed by Christos Donald MD at [facility] ENDOSCOPY ??? RETINAL LASER SURGERY Left [...] SFA stents ??? VASCULAR SURGERY 1009 Right TEST BORING CREW CHIEF-AK pop vein graft ??? VS ARTERIOGRAM LOWER EXTREMITY VASCULAR SURGERY 04/27/2018 VS Arteriogram Lower Extremity Vascular Surgery 04/27/2018 Jaxon Fontaine MD [facility] INTERVENTIONL RAD ??? 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 Home Setup: Duplex, 2 levels but pt stays on the main level. 0 HERNAN. Daughter and 3 grandsons live next door. Bathroom has a walk-in shower. DME: none Baseline ADL/Mobility: Pt is fully independent with all I/ADLs at baseline. Pt does not provide hands on assist for the 2 people she cares for but manages the meals and medication. Her SO plans to take a week off from work to assist pt at home as needed. Precautions/Special Considerations: falls, insulin pump, groin incision Subjective: I have no concerns with going home. Pt anticipates having plently family assist/support Objective: Seen today for OT evaluation. Cognitive Status/Behavior: ?? Behavior / Mood: alert and cooperative ?? Alert and oriented to: person, place, time and situation ?? Follows commands: multi step and 100% of the time ?? Attention: WFL ?? Safety awareness: WFL Vision & Perception: ?? WNL/WFL ?? corrective lenses for reading Communication: WFL Range of motion, strength, coordination: Hand dominance: right Bilateral UEs are within functional limitations LE limitations: limited ROM of RLE d/t groin incision Sensation: intact Activities of Daily Living: Self-feeding: NA; pt reports independence eating breakfast Grooming: SBA in standing at sink Dressing: SBA donning socks in sitting using figure 4 position with extra effort. Pt declined offerfor sock aid stating plan to wear slip on shoes and no socks at home. Bathing: NA; pt requested to defer. Anticipate SBA for UB/LB. Toileting: Transfer: independent Hygiene: independent Functional Mobility: Supine to sit: SBA from flat bed using bed rail for support. Pt was educated on log roll technique to increase independence. Sit to stand: SBA Ambulation: SBA in room to bathroom; pt able to manage IV pole with minimal cues. Stand to sit: CGA with cues for hand placement Sit to supine: NA; pt left in recliner at end of session Balance: Sitting balance: good Standing balance: fair +/good Vitals: pt asymptomatic on RA. Pt was educated on pursed lip breathing and IS use. Pt encouraged touse IS throughout the day and pursed lip breathing during activity. At Rest With Activity SpO2 95% 2L 85-88% RA EOB sit Heart Rate 71 74 Blood Pressure 154/63 supine 146/63 sitting 100/52 standing Pain: 5-6/10 at incision Skin: R groin incision Education: patient has been educated on Role of occupational therapy/rehabilitation, Transfers, Adaptive equipment training, ADL, Breathing exercises, Positioning, Safety, Precautions/Protocol, Functional Mobility, Activity pacing/Energy conservation, Recommendations and Discharge planning and verbalizes and demonstrates understanding. Patient status, treatment, and mobility recommendations discussed with nursing. Assessment: Pt has been seen for occupational therapy evaluation. Jennifer Branch presents with the following performance skill deficits and client factors: increased pain, decreased activity tolerance, decreased flexibility/ROM, hemodynamic instability, deconditioning and increased O2 demand. These performance deficits have led to activity limitations and participation restrictions in the following areas of occupation: dressing, bathing, toileting, transfers/mobility, home management, work, leisure, driving, community mobility and social participation. Pt demonstrated ability to manage her basic ADLs with SBA and extra time d/t pain and decreased activity tolerance on RA; pt asymptomatic with SpO2 in the 80's. Pt was able to bring O2 saturation up to 94% using IS but unable to maintain level at rest on RA. Pt was receptive to education on energy conservation, pursed lip breathing, andfrequent IS use to support wean from supplemental O2. Anticipate pt will return home with family support once medically ready for d/c. No additional acute OT needs at this time. Equipment needs at discharge: Anticipated Discharge Disposition: home with assist Other Recommendations: ?? Encourage participation in ADL's by providing set up A on tray table and physical assist only asneeded ?? Encourage OOB activity and ambulation to the bathroom for ADLs. Other Recommendations: No other consults recommended at this time Plan: OT: Therapy Frequency: evaluation only Total Evaluation Minutes, Occupational Therapy: 50(Evaluation and SCHM x 1) 2017 OT Evaluation Code Rationale: ?? Diagnosis & Pertinent Co-Morbidities affecting Plan of Care: see PMHx ?? Occupational Profile & Client History: Brief Expanded Extensive x ?? Assessment of Occupational Performance: 1-3 performance deficits 3-5 performance deficits 5 + performance deficits x ?? Clinical Decision Making: Low Moderate High x Clinical decision making of low complexity using standardized patient assessment instrument and measurable assessment of functional outcome. Pager: [phone] Althea Sena OT 02/05/2019 Occupational Therapy Rehabilitation Department * Med Student Progress Note - Mellisa Teague - 02/05/2019 10:26 AM EDT Surgery Progress Note ID: Jennifer Branch is a 58 y.o. female with a PMH of T1DM, HTN, HLD and PAD s/p vascular interventions who had persistently elevated velocities in the inflow artery of R fem-AK pop bypass (2007), now presenting for open revision. Operations This Hospitalization: Right femoral endarterectomy, revision of proximal vein bypass, with bovine patch angioplasty Right profunda plasty with bovine patch angioplasty Subjective: - NAEO - Doing well, eager to go home O: Temp: [36.4 ??C (97.5 ??F)-37.2 ??C (99 ??F)] Heart Rate: [53-62] Resp: [11-18] BP: (105-158)/(41-93) SpO2: [88 %-100 %] Heart Rate from SpO2: [53 bpm-73 bpm] I/O last 3 completed shifts: In: 2853 [P.O.:270; I.V.:2583] Out: 1335 [Urine:1085; Blood:250] Physical Exam: General: NAD, resting comfortably HEENT: PERRL, anicteric sclerae CVS: Regular rate, no murmurs rubs or gallops Pulm: Clear bilaterally Abd: soft, non tender, non distended Ext: RLE: No edema. Skin warm and pink. Palpable DP and PT. No tissue loss. LLE: No edema. Skin warm and pink. +DP and PT Doppler signals. No tissue loss. Neuro: CN 2-12 grossly intact, nonfocal, moving all extremities. Sensation intact in extremities bilaterally symmetric. Motor function intact in extremities, bilaterally symmetric. Recent Labs 02/05/19 0839 02/05/19447 WBC 7.4 6.5 HGB 10.4* 9.9* HCT 33.8* 32.4* PLATELET 209 196 Recent Labs 02/05/19447 NA 141 K 4.2 CL 109* CO2 25 BUN 23* CREATININE 1.41* CALCIUM 8.0* New Imaging ?? None Assessment: Jennifer Branch is a 58 y.o. female s/p right femoral endarterectomy, revision of proximal vein bypass, with bovine patch angioplasty and right profundaplasty with bovine patch angioplasty who is recovering well and in stable condition. Anticipate she will be ready for discharge home to [place]. Plan: - Advance heparin - D/c mazariegos - ISS; f/u diabetes reccs - PT/OT - Carb control diet - Holding home Pradaxa Anticoagulation: IV heparin Antiplatelet: ASA 81 mg po Dispo: floor status, full code Mellisa Teague, MS3 * Op Note - Jose Juan Keith MD - 02/04/2019 5:05 PM EDT [facility] [place] Operative Note Patient Name: Jennifer Branch : 1960 MR#: [id number] Case Date: 02/04/2019 Date of Operation: 02/04/2019. Surgeon(s) and Role: * Jaxon Fontaine MD - Primary * Jose Juan Keith MD - Resident Preoperative Diagnosis: RLE bypass restenosis Postoperative Diagnosis: Severe focal stenosis of the right distal TEST BORING CREW CHIEF and vein bypass anastomosis Procedure: Right external iliac and femoral endarterectomy, revision of proximal vein bypass, with bovine patch angioplasty - redo incision - 22 modifier Right profunda plasty with bovine patch angioplasty Findings: Severe narrowing of the distal TEST BORING CREW CHIEF into the bypass with calcified plaque. We patched ontothe proximal bypass and onto the proximal PFA. Excellent inflow and palpable pulse in DP and PT pulse upon completion. Anesthesia: General endotracheal anesthesia Estimated Blood Loss: 250 mL Urine Output: 250 mL. Intravenous Fluid: 1.5 L. Contrast: None Flouroscopy Time: None Drains/Lines: Mazariegos catheter, arterial line, PIVs Specimens: None Intraoperative Medications: Heparin: 8,000 Units Protamine: 20 mg Implants: Implant Name Type Inv. Item Serial No. Agriculture Scientist Lot No. LRB No. Used Action PATCH,BIOL,XENOSURE,.[id number] ([id number]) - [id number] IMPLANTS PATCH,BIOL,XENOSURE,.[id number] ([id number]) [facility] [id number] Right 1 Implanted Indications for Procedure: Jennifer Branch is a 58 year old diabetic former smoker with a history of PAD. She underwent RLE bypass angioplasty in April. She has persistently elevated velocities in the inflow artery with evidence of a focal dissection on duplex. She now presents for open revision. Procedure in Detail: The patient was correctly identified in the Preprocedure Holding Area. After adiscussion of the risks, benefits and alternatives of the procedure and after answering all of the patients questions, the patient wished to proceed and then was consented for the operation. The patient was brought back to the Operating Room and placed supine on the operating table. She was intubated by the Anesthesia Service without difficulty. Additional IV access was obtained including a radial arterial line. A Mazariegos catheter was placed, and the patient was then prepped and draped in the standard sterile fashion using a alcohol, chlorhexidine and iodine solutions. Pre-operative antibioticswere administered, and a full standard time out was completed prior to initiating the procedure. We made a longitudinal incision over the right TEST BORING CREW CHIEF. We dissected down through the soft tissues withelectrocautery. We identified the inguinal ligament. We then identified the proximal TEST BORING CREW CHIEF. This areawas relatively free of scar. We looped the distal EIA, the circumflex branches, and ligated the circumflex iliac vein. We then continued our dissection distally. The area of the femoral bifurcation was heavily scarred from her prior bypass procedure. We used sharp dissection to carefully identify the vein bypass. We then identified the PFA. We looped both. The known occluded SFA was left in its anatomic position. When we were satisfied with our exposure, the patient was systemically heparinized. We clamped the distal EIA, the vein bypass, the PFA, and the smaller looped branches. We opened the TEST [employer]IEF onto the PFA. We identified a large amount of calcified plaque causing a severe stenosis of the vein bypass. Wewere not able to completely remove the plaque from the proximal vein bypass. We then carried the arteriotomy onto the proximal vein bypass and performed an endarterectomy of the EIA, TEST BOR[employer]W CHIEF, and PFA. When we were satisfied with our endpoints, we used a 6-0 prolene suture to reinforce the prior suture line. We then used two additional sutures to ensure the vein end point. We instilled heparinized saline into the vein bypass intermittently throughout the procedure. Next we performed a bovine patch angioplasty. We started the angioplasty in the PFA, and carried this up to the distal EIA. We then used a second patch starting on the vein bypass side, and carried this onto the [employer]IEF. Just prior to completing the suture line, we transiently removed all clamps to expel any air or debris. We then completed the suture line. We removed all clamps. There was a palpable DP pulse. We used two additional prolenes to ensure hemostasis. We applied surgicel and gelfoam to the suture line. Protamine was administered. We obtained hemostasis in the surrounding tissues with electrocautery. The wound was irriga mackenzie. When we were satisfied with hemostasis, we closed the wound in four layers of 3-0 Vicryl, we closed the skin with vertical mattress sutures of 3-0 prolene and judd. The wound was dressed withXerofoam, gauze, and Tegaderm. All sponge and instrument counts were correct at the end of the procedure. Dr. Fontaine, the attending surgeon of record, was present and scrubbed for the duration of the procedure. Disposition: awakened from anesthesia, extubated and taken to the recovery room in a stable condition, having suffered no apparent untoward event. Condition: doing well without problems Associated attestation - Jaxon Fontaine MD - 03/04/2019 3:36 PM EST Attestation: Case Date: 02/04/2019 Higher complexity dissection due to the redo nature of surgery resulting in longer than expected surgical time. I was present and I participated during the entire procedure (does not need to include opening and closing). Jaxon Fontaine MD 02/20/2019 documented in this encounter Plan of Treatment Upcoming Encounters Date Type Department Care Team (Late st Contact Info) Description 12/19/2023 1:00 PM EDT Tech [place] [phone] Marguerite Macias 12/19/2023 3:00 PM EDT Office [place] [phone] Gardenia Golden APRN [facility] [place] [address] 01/29/2024 1:[address] [place] [phone] César Escobar MD [facility] [place] [address] 01/29/2024 2:30 PM EDT Office [place] [phone] César Escobar MD [facility] [place] [address] documented as of this encounter Procedures Procedure Name Priority Date/Time Associated Diagnosis Comments POCT GLUCOSE Routine 02/08/2019 8:18 AM EDT UNILATERAL BYPASS GRAFT ASSESS Routine 02/08/2019 7:28 AM EDT PVD (peripheral vascular disease) with claudication SHEFALI, LEGS, MULTIPLE LEVELS Routine 02/08/2019 6:08 AM EDT PVD (peripheral vascular disease) with claudication PAD (peripheral artery disease) HEMOGRAM Routine 02/08/2019 4:21 AM EDT DIFFERENTIAL, AUTOMATED Routine 02/09/20 19 4:21 AM EDT HC CBC,PLT & AUTO DIFF Routine 9 4:21 AM EDT HC VENIPUNCTURE Routine 02/08/2019 4:21 AM EDT POCT GLUCOSE Routine 02/08/2019 4:00 AM EDT POCT GLUCOSE Routine 02/08/2019 1:08 AM EDT POCT GLUCOSE Routine 02/07/2019 11:26 PM EDT POCT GLUCOSE Routine 02/07/2019 7:39 PM EDT POCT GLUCOSE Routine 02/07/2019 12:18 PM EDT HC UNFRACTIONATED HEPARIN (HEP UFH) STAT 02/07/2019 10:57 AM EDT POCT GLUCOSE Routine 02/07/2019 8:09 AM EDT HC UNFRACTIONATED HEPARIN (HEP UFH) STAT 02/07/2019 4:18 AM EDT HEMOGRAM Routine 02/07/2019 4:18 AM EDT DIFFERENTIAL, AUTOMATED Routine 02/08/20 19 4:18 AM EDT HC CBC,PLT & AUTO DIFF Routine 9 4:18 AM EDT HC VENIPUNCTURE Routine 02/07/2019 4:18 AM EDT POCT GLUCOSE Routine 02/07/2019 3:41 AM EDT POCT GLUCOSE Routine 02/07/2019 12:17 AM EDT HC UNFRACTIONATED HEPARIN (HEP UFH) STAT 02/06/2019 10:32 PM EDT POCT GLUCOSE Routine 02/06/2019 7:55 PM EDT POCT GLUCOSE Routine 02/06/2019 3:14 PM EDT HC UNFRACTIONATED HEPARIN (HEP UFH) STAT 02/06/2019 3:03 PM EDT POCT GLUCOSE Routine 02/06/2019 11:09 AM EDT POCT GLUCOSE Routine 02/06/2019 7:36 AM EDT HC UNFRACTIONATED HEPARIN (HEP UFH) STAT 02/06/2019 4:38 AM EDT HEMOGRAM Routine 02/06/2019 4:38 AM EDT DIFFERENTIAL, AUTOMATED Routine 02/07/20 19 4:38 AM EDT HC CBC,PLT & AUTO DIFF Routine 9 4:38 AM EDT HC VENIPUNCTURE Routine 02/06/2019 4:38 AM EDT POCT GLUCOSE Routine 02/06/2019 3:41 AM EDT POCT GLUCOSE Routine 02/05/2019 11:19 PM EDT HC VENIPUNCTURE STAT 02/05/2019 9:46 PM EDT POCT GLUCOSE Routine 02/05/2019 7:30 PM EDT POCT GLUCOSE Routine 02/05/2019 3:06 PM EDT HC VENIPUNCTURE STAT 02/05/2019 2:40 PM EDT HEMOGRAM Routine 02/05/2019 2:40 PM EDT DIFFERENTIAL, AUTOMATED Routine 02/06/20 19 2:40 PM EDT HC CBC,PLT & AUTO DIFF Routine 9 2:40 PM EDT POCT GLUCOSE Routine 02/05/2019 11:29 AM EDT POCT GLUCOSE Routine 02/05/2019 9:48 AM EDT HC UNFRACTIONATED HEPARIN (HEP UFH) STAT 02/05/2019 8:39 AM EDT HEMOGRAM Routine 02/05/2019 8:39 AM EDT DIFFERENTIAL, AUTOMATED Routine 02/06/20 19 8:39 AM EDT HC CBC,PLT & AUTO DIFF Routine 9 8:39 AM EDT POCT GLUCOSE Routine 02/05/2019 7:30 AM EDT HEMOGRAM Routine 02/05/2019 4:48 AM EDT DIFFERENTIAL, AUTOMATED Routine 02/06/20 19 4:48 AM EDT HC CBC,PLT & AUTO DIFF Routine 9 4:48 AM EDT HC VENIPUNCTURE Routine 02/05/2019 4:48 AM EDT POCT GLUCOSE Routine 02/05/2019 4:42 AM EDT POCT GLUCOSE Routine 02/05/2019 12:27 AM EDT POCT GLUCOSE Routine 02/04/2019 8:46 PM EDT POCT GLUCOSE Routine 02/04/2019 7:11 PM EDT POCT GLUCOSE Routine 02/04/2019 5:11 PM EDT RE-OP FOR RE-DO L/E BYPASS GRAFT, >1 MO P\ ORIGINAL SURG, ADD-ON CODE Routine 02/04/2019 4:12 PM EDT ENDART, PROFUNDAPLASTY, DEEP, PROFUNDA FEMORIS W OR W/O PATCH GRAFT Routine 02/04/2019 4:06 PM EDT BLOOD GAS ARTERIAL POC Routine 9 3:26 PM EDT BLOOD GAS ARTERIAL POC Routine 9 2:22 PM EDT BLOOD GAS ARTERIAL POC Routine 9 12:50 PM EDT Reoperation, Bypass Graft ([id number]) 02/04/2019 12:01 PM EDT PVD Thromboendartectmy Femoral Deep ([id number]) 02/04/2019 12:01 PM EDT PVD Thromboendartectmy Femoral Common ([id number]) 02/04/2019 12:01 PM EDT PVD POCT GLUCOSE Routine 02/04/2019 11:56 AM EDT EKG 12-LEAD Routine 02/04/2019 11:49 AM EDT PVD (peripheral vascular disease) with claudication Pre-op testing ABORH RECHECK STATUS STAT 02/04/2019 10:45 AM EDT HC VENIPUNCTURE STAT 02/04/2019 10:45 AM EDT PVD (peripheral vascular disease) with claudication Pre-op testing ABO/RH TYPING STAT 02/04/2019 10:45 AM EDT PVD (peripheral vascular disease) with claudication Pre-op testing ANTIBODY SCREEN STAT 02/04/2019 10:45 AM EDT PVD (peripheral vascular disease) with claudication Pre-op testing ENDARTERECTOMY, COMMON FEMORAL W OR W/O PATCH GRAFT Routine 02/04/2019 10:44 AM EDT documented in this encounter Results * POCT Glucose (02/08/2019 8:18 AM EDT) [facility] Glucose, POC 177 65 - 199 mg/dL [facility] Comment: Supplemental ranges: <140 mg/dL before meals <180 mg/dL all other times of the day Blood specimen (specimen) 02/08/2019 8:18 AM EDT 02/08/2019 8:18 AM EDT Jaxon Fontaine MD POINT OF CARE TEST O RDERABLES Performing Organization Address City/State/[facility] Co de Phone Number [facility] [place] [address] * Unilat Bypass Graft Assess (02/08/2019 7:28 AM EDT) VB Text Report Department: Vascular Surgery Lab Patient: [id number] (JENNIFER BRANCH) CPT: 46103 ICD10: I73.9 Referring Physician: JAXON FONTAINE MD ?? Phone: Indications: ??s/p RIGHT fem-pop proximal anastomosis redo, ? change ICD10 Diagnosis Code: I73.9 Findings: Right Fem-Pop AK SEGMENT ? PSV (cm/s) ??EDV ??Location ? Right Inflow Artery (Graft) ? 76 ?0 ??Common Femoral ? Inflow Anastomosis, Right ? 52 ?0 ??Common Femoral ? Right Proximal Graft ?61 ?0 ? Right Mid Graft ? 52 ?0 ? Right Distal Graft ?53 ?0 ? Outflow Anastomosis, Right ? 156 ?0 ??Popliteal, Above Knee ?? Right Outflow Artery (Graft) ? 190 ?0 ??Popliteal, Above Knee ?? Interpretation: RIGHT: Patent common femoral to above knee popliteal artery bypass graft with no evidence of stenosis. No evidence of pseudoaneurysm or other abnormality in the groin, however, surgical judd makes thorough interrogation difficult. Improved compared to previous exam done 12/17/2018. Electronically Signed by: JAXON FONTAINE MD on 2019-02-08 11:25:39 AM VASCUBASE VB Text Report End of Report VASCUBASE 02/08/2019 7:28 AM EDT Jaxon Fontaine MD VASCULAR ORDERABLES VASCUBASE * SHEFALI, legs, multiple levels (02/08/2019 6:08 AM EDT) VB Text Report Department: Vascular Surgery Lab Patient: [id number] (JENNIFER BRANCH) CPT: 33476 ICD10: I73.9 Referring Physician: JAXON FONTAINE MD ?? Phone: Indications: ??s/p redo RIGHT proximal anastomosis of fem-ak pop bypass Diabetes mellitus: yes ICD10 Diagnosis Code: I73.9 Findings: Right ?Pressure (mm Hg) ?? SHEFALI ??Waveform ? TBI ?? Brachial Artery ?145 ? Dorsalis Pedis (Ankle) Artery ?150 ? 1.03 ??Bi-Triphasic ? Posterior Tibial (Ankle) Artery ??144 ? 0.99 ??Bi-Triphasic ? Great Toe ?84 ?0.58 ?? Left ? Pressure (mm Hg) ?? SHEFALI ??Waveform ? TBI ?? Brachial Artery ?142 ? Dorsalis Pedis (Ankle) Artery ?77 ?0.53 ??Monophasic ? Posterior Tibial (Ankle) Artery ??79 ?0.54 ??Monophasic ? Great Toe ?52 ?0.36 ?? Interpretation: RIGHT: No significant lower extremity arterial occlusive disease identified at rest. Normal ankle/brachial pressure ratios and ankle Doppler waveforms. Toe-brachial index substantially lower than ankle-brachial index indicates presence of mild arterial occlusive disease in the distal calf and foot. Some improvement in ABIs with no significant change in TBI compared to preoperative exam. LEFT: Moderate lower extremity arterial occlusive disease. No significant change compared to previous exam. [...] 0.63 ? ---- ??0.89(+.01) 0.90(-.04) 0.56(-.07) ---- Current ? 1.03(+.14) 0.99(+.09) 0.58(+.02) ---- Date ?LEFT DP ?LEFT PT ?LT [...] 0.40 ? ---- ??0.55(-.04) 0.62(+.03) 0.37(-.03) ---- Current ? 0.53(-.02) 0.54(-.08) 0.36(-.01) ---- Electronically Signed by: JAXON FONTAINE MD on 2019-02-08 11:24:39 AM VASCUBASE VB Text Report End of Report VASCUBASE 02/08/2019 6:08 AM EDT Jaxon Fontaine MD VASCULAR ORDERABLES VASCUBASE * (ABNORMAL) Differential, Automated (02/08/2019 4:21 AM EDT) Neutrophil % 55.0 % [facility] Neutrophil Absolute 4.28 1.70 - 6.10 x10(3)/ L [facility] Lymph % 28.1 % [facility] Lymphocytes Abs 2.2 0.9 - 3.2 x10(3)/ L [facility] Monocyte % 9.0 % [facility] Monocyte Abs 0.7 0.3 - 0.9 x10(3)/[facility] Eos % 7.4 % [facility] Eosinophils Abs 0.6(H) 0.0 - 0.4 x10(3)/[facility] Basophil % 0.4 % [facility] Baso Absolute 0.0 0.0 - 0.1 x10(3)/[facility] Immature Gran % 0.10 % [facility] Comment: Immature granulocytes(IG's)percentage and absolute count will include metamyelocytes, myelocytes, and promyelocytes. Blood smears from CBCs yielding IG's will be scanned manually for concordance. If this scan disagrees with the automated IG or if promyelocytes are noted, a manual differential will be performed. Immature Gran Absolute 0.01 0.00 - 0.04 x10(3)/[facility] Blood specimen (specimen) 02/08/2019 4:21 AM EDT 02/08/2019 4:34 AM EDT Narrative Resulting Agency Comment Spec In Lab Jose Juan Keith MD HEMATOLOGY ORDERABLE S [facility] [place] [address] * (ABNORMAL) Hemogram (02/08/2019 4:21 AM EDT) White Blood Cell 7.8 4.0 - 9.5 x10(3)/[facility] Red Blood Cell 2.99(L) 4.00 - 5.21 x10(6)/[facility] Hemoglobin 8.9(L) 11.7 - 15.5 gm/dL [facility] Hematocrit 28.7(L) 35.7 - 45.8 % [facility] Mean Cell Volume 96.0(H) 82.6 - 94.4 fL [facility] Mean Cell Hemoglobin 29.8 27.1 - 32.0 pg [facility] Mean Cell Hemoglobin Concentration 31.0(L) 31.7 - 35.0 gm/dL [facility] Platelet 193 145 - 357 x10(3)/mc L [facility] RDW Standard Deviation 48.2(H) 37.0 - 46.0 [facility] RDW coefficient of variation 13.6 11.5 - 14.1 % [facility] Mean Platelet Volume 10.3 7.6 - 12.9 [facility] NRBC% auto 0.0 % [facility] NRBC Absolute 0.000 0.000 - 0.000 x10(3)/mc L [facility] Blood specimen (specimen) 02/08/2019 4:21 AM EDT 02/08/2019 4:34 AM EDT Narrative Resulting Agency Comment Spec In Lab Jose Juan Keith MD HEMATOLOGY ORDERABLE S [facility] [place] [address] * (ABNORMAL) Basic Metabolic Panel (non-fasting) (02/08/2019 4:21 AM EDT) Glucose 138 65 - 199 mg/dL [facility] Comment:Diabetes: >=200 mg/d L plus symptoms Blood Urea Nitrogen 23(H) 8 - 18 mg/dL [facility] Creatinine 1.43(H) 0.70 - 1.20 mg/dL [facility] Sodium 142 135 - 145 mmol/L [facility] Potassium 4.3 3.5 - 5.0 mmol/L [facility] Comment: Please note: ??Patients with WBC >100,000 may have falsely elevated Potassium levels. ??For accurate Potassium quantification in these patients send serum separator tube (gold top) for subsequent determinations. ??Contact the Clinical Chemistry Laboratory if there are any questions. Chloride 107 98 - 107 mmol/L [facility] Carbon Dioxide 24 22 - 31 mmol/L [facility] Anion Gap 11 5 - 15 mmol/L [facility] Calcium 8.8 8.5 - 10.5 mg/dL [facility] Est Glomerular Filtration Rate 40(L) >=60 mL/min/1. 73 m?? [facility] Comment: The eGFR was calculated using the CKD-EPI equation. As with all creatinine based estimates of kidney function, eGFR values calculated with the CKD-EPI equation are not accurate in patients with acute kidney failure, extremes of body mass or the acutely ill. [email or web address] – [email or web address] CITYnkf eGFR 46(L) >=60 mL/min/1. 73 m?? [facility] Comment: The eGFR was calculated using the CKD-EPI equation. As with all creatinine based estimates of kidney function, eGFR values calculated with the CKD-EPI equation are not accurate in patients with acute kidney failure, extremes of body mass or the acutely ill. [email or web address] Blood specimen (specimen) 02/08/2019 4:21 AM EDT 02/08/2019 4:34 AM EDT Narrative Resulting Agency Comment Spec In Lab Jaxon Fontaine MD CHEMISTRY ORDERABLES Performing Organization Address [facility]/ZIP Co de Phone Number [facility] [place] [address] * POCT Glucose (02/08/2019 4:00 AM EDT) Glucose, POC 148 65 - 199 mg/dL [facility] Comment: Supplemental ranges: <140 mg/dL before meals <180 mg/dL all other times of the day Blood specimen (specimen) 02/08/2019 4:00 AM EDT 02/08/2019 4:00 AM EDT Jaxon Fontaine MD POINT OF CARE TEST O RDERABLES Performing Organization Address City/[facility]/ZIP Co de Phone Number [facility] [place] [address] * POCT Glucose (02/08/2019 1:08 AM EDT) Glucose, POC 180 65 - 199 mg/dL [facility] Comment: Supplemental ranges: <140 mg/dL before meals <180 mg/dL all other times of the day Blood specimen (specimen) 02/08/2019 1:08 AM EDT 02/08/2019 1:08 AM EDT Jaxon Fontaine MD POINT OF CARE TEST O RDERABLES Performing Organization Address [facility] Co de Phone Number [facility] [place] [address] * (ABNORMAL) POCT Glucose (02/07/2019 11:26 PM EDT) Glucose, POC 216(H) 65 - 199 mg/dL [facility] Comment: Supplemental ranges: <140 mg/dL before meals <180 mg/dL all other times of the day Blood specimen (specimen) 02/07/2019 11:26 PM EDT 02/07/2019 11:26 PM EDT Jaxon Fontaine MD POINT OF CARE TEST O RDERAJOHN Performing Organization Address [facility] Co de Phone Number [facility] [place] [address] * (ABNORMAL) POCT Glucose (02/07/2019 7:39 PM EDT) Glucose, POC 264(H) 65 - 199 mg/dL [facility] Comment: Supplemental ranges: <140 mg/dL before meals <180 mg/dL all other times of the day Blood specimen (specimen) 02/07/2019 7:39 PM EDT 02/07/2019 7:39 PM EDT Jaxon Fontaine MD POINT OF CARE TEST O RDERABLES [facility] [place] [address] * POCT Glucose (02/07/2019 12:18 PM EDT) Pathologist [facility] [place] Glucose, POC 103 65 - 199 mg/dL [facility] Comment: Supplemental ranges: <140 mg/dL before meals <180 mg/dL all other times of the day Blood specimen (specimen) 02/07/2019 12:18 PM EDT 02/07/2019 12:18 PM EDT Jaxon Fontaine MD POINT OF CARE TEST O RDERABLES [facility] [place] [address] * Heparin (unfractionated) Level (02/07/2019 10:57 AM EDT) [facility] UF Heparin 0.67 IU/mL [facility] Comment: Guidelines for therapeutic unfractionated heparin levels are summarized below. Heparin (Anti-Xa) levels should be determined in a plasma sample that has been drawn 6 hours after a dose change i.e., steady-state has been reached. DRUG ?Dosing Schedule ? Target Peak Steady-State ?Heparin (Anti-Xa) Levels (Units/mL) Unfractionated ?Continuous infusion ?0.3-0.7 Heparin ?0.3-0.6 for some neurology indications Blood specimen (specimen) 02/07/2019 10:57 AM EDT 02/07/2019 11:10 AM EDT Narrative Resulting Agency Comment Spec In Lab Jaxon Fontaine MD HEMATOLOGY ORDERABLE S Performing Organization Address [facility] Co de Phone Number [facility] [place] [address] * POCT Glucose (02/07/2019 8:09 AM EDT) [facility] Glucose, POC 140 65 - 199 mg/dL [facility] Comment: Supplemental ranges: <140 mg/dL before meals <180 mg/dL all other times of the day Blood specimen (specimen) 02/07/2019 8:09 AM EDT 02/07/2019 8:09 AM EDT Jaxon Fontaine MD POINT OF CARE TEST O RDERABLES Performing Organization Address [facility] Co de Phone Number [facility] [place] [address] * Heparin (unfractionated) Level (02/07/2019 4:18 AM EDT) [facility] UF Heparin 0.79 IU/mL [facility] Comment: Guidelines for therapeutic unfractionated heparin levels are summarized below. Heparin (Anti-Xa) levels should be determined in a plasma sample that has been drawn 6 hours after a dose change i.e., steady-state has been reached. DRUG ?Dosing Schedule ? Target Peak Steady-State ?Heparin (Anti-Xa) Levels (Units/mL) Unfractionated ?Continuous infusion ?0.3-0.7 Heparin ?0.3-0.6 for some neurology indications Blood specimen (specimen) 02/07/2019 4:18 AM EDT 02/07/2019 4:26 AM EDT Narrative Resulting Agency Comment Spec In Lab Jaxon Fontaine MD HEMATOLOGY ORDERABLE S [facility] [place] [address] * (ABNORMAL) Differential, Automated (02/07/2019 4:18 AM EDT) Neutrophil % 47.2 % [facility] Neutrophil Absolute 3.74 1.70 - 6.10 x10(3)/mc L [facility] Lymph % 35.1 % [facility] Lymphocytes Abs 2.8 0.9 - 3.2 x10(3)/ L [facility] Monocyte % 10.1 % [facility] Monocyte Abs 0.8 0.3 - 0.9 x10(3)/ L [facility] Eos % 6.9 % [facility] Eosinophils Abs 0.6(H) 0.0 - 0.4 x10(3)/ L [facility] Basophil % 0.4 % [facility] Baso Absolute 0.0 0.0 - 0.1 x10(3)/ L [facility] Immature Gran % 0.30 % [facility] Comment: Immature granulocytes(IG's)percentage and absolute count will include metamyelocytes, myelocytes, and promyelocytes. Blood smears from CBCs yielding IG's will be scanned manually for concordance. If this scan disagrees with the automated IG or if promyelocytes are noted, a manual differential will be performed. Immature Gran Absolute 0.02 0.00 - 0.04 x10(3)/mc L [facility] Blood specimen (specimen) 02/07/2019 4:18 AM EDT 02/07/2019 4:26 AM EDT Narrative Resulting Agency Comment Spec In Lab Jose Juan Keith MD HEMATOLOGY ORDERABLE S Performing Organization Address City/[facility]/ZIP Co de Phone Number [facility] [place] [address] * (ABNORMAL) Hemogram (02/07/2019 4:18 AM EDT) White Blood Cell 7.9 4.0 - 9.5 x10(3)/[facility] Red Blood Cell 3.22(L) 4.00 - 5.21 x10(6)/[facility] Hemoglobin 9.6(L) 11.7 - 15.5 gm/dL [facility] Hematocrit 31.4(L) 35.7 - 45.8 % [facility] Mean Cell Volume 97.5(H) 82.6 - 94.4 fL [facility] Mean Cell Hemoglobin 29.8 27.1 - 32.0 pg [facility] Mean Cell Hemoglobin Concentration 30.6(L) 31.7 - 35.0 gm/dL [facility] Platelet 199 145 - 357 x10(3)/[facility] RDW Standard Deviation 48.4(H) 37.0 - 46.0 [facility] RDW coefficient of variation 13.5 11.5 - 14.1 % [facility] Mean Platelet Volume 10.4 7.6 - 12.9 [facility] NRBC% auto 0.0 % [facility] NRBC Absolute 0.000 0.000 - 0.000 x10(3)/[facility] Blood specimen (specimen) 02/07/2019 4:18 AM EDT 02/07/2019 4:26 AM EDT Narrative Resulting Agency Comment Spec In Lab Jose Juan Keith MD HEMATOLOGY ORDERABLE S [facility] [place] [address] * (ABNORMAL) Basic Metabolic Panel (non-fasting) (02/07/2019 4:18 AM EDT) Glucose 121 65 - 199 mg/dL [facility] Comment:Diabetes: >=200 mg/d L plus symptoms Blood Urea Nitrogen 22(H) 8 - 18 mg/dL [facility] Creatinine 1.37(H) 0.70 - 1.20 mg/dL [facility] Sodium 142 135 - 145 mmol/L [facility] Potassium 4.3 3.5 - 5.0 mmol/L [facility] Comment: Please note: ??Patients with WBC >100,000 may have falsely elevated Potassium levels. ??For accurate Potassium quantification in these patients send serum separator tube (gold top) for subsequent determinations. ??Contact the Clinical Chemistry Laboratory if there are any questions. Chloride 107 98 - 107 mmol/L [facility] Carbon Dioxide 23 22 - 31 mmol/L [facility] Anion Gap 12 5 - 15 mmol/L [facility] Calcium 8.8 8.5 - 10.5 mg/dL [facility] Est Glomerular Filtration Rate 42(L) >=60 mL/min/1. 73 m?? [facility] Comment: The eGFR was calculated using the CKD-EPI equation. As with all creatinine based estimates of kidney function, eGFR values calculated with the CKD-EPI equation are not accurate in patients with acute kidney failure, extremes of body mass or the acutely ill. [email or web address] eGFR 48(L) >=60 mL/min/1. 73 m?? [facility] Comment: The eGFR was calculated using the CKD-EPI equation. As with all creatinine based estimates of kidney function, eGFR values calculated with the CKD-EPI equation are not accurate in patients with acute kidney failure, extremes of body mass or the acutely ill. [email or web address] Blood specimen (specimen) 02/07/2019 4:18 AM EDT 02/07/2019 4:26 AM EDT Narrative Resulting Agency Comment Spec In Lab Jaxon Fontaine MD CHEMISTRY ORDERABLES [facility] [place] [address] * POCT Glucose (02/07/2019 3:41 AM EDT) Glucose, POC 133 65 - 199 mg/dL [facility] Comment: Supplemental ranges: <140 mg/dL before meals <180 mg/dL all other times of the day Blood specimen (specimen) 02/07/2019 3:41 AM EDT 02/07/2019 3:41 AM EDT Jaxon Fontaine MD POINT OF CARE TEST O ALEXERAJOHN Performing Organization Address [facility] Co de Phone Number [facility] [place] [address] * POCT Glucose (02/07/2019 12:17 AM EDT) [facility] Signature Glucose, POC 159 65 - 199 mg/dL [facility] Comment: Supplemental ranges: <140 mg/dL before meals <180 mg/dL all other times of the day Blood specimen (specimen) 02/07/2019 12:17 AM EDT 02/07/2019 12:17 AM EDT Jaxon Fontaine MD POINT OF CARE TEST O JODIE Performing Organization Address [facility] Co de Phone Number [facility] [place] [address] * Heparin (unfractionated) Level (02/06/2019 10:32 PM EDT) UF Heparin 0.68 IU/mL [facility] Comment: Guidelines for therapeutic unfractionated heparin levels are summarized below. Heparin (Anti-Xa) levels should be determined in a plasma sample that has been drawn 6 hours after a dose change i.e., steady-state has been reached. DRUG ?Dosing Schedule ? Target Peak Steady-State ?Heparin (Anti-Xa) Levels (Units/mL) Unfractionated ?Continuous infusion ?0.3-0.7 Heparin ?0.3-0.6 for some neurology indications Blood specimen (specimen) 02/06/2019 10:32 PM EDT 02/06/2019 10:41 PM EDT Narrative Resulting Agency Comment Spec In Lab Jaxon Fontaine MD HEMATOLOGY ORDERABLE S Performing Organization Address [facility] de Phone Number [facility] [place] [address] * (ABNORMAL) POCT Glucose (02/06/2019 7:55 PM EDT) Glucose, POC 247(H) 65 - 199 mg/dL [facility] Comment: Supplemental ranges: <140 mg/dL before meals <180 mg/dL all other times of the day Blood specimen (specimen) 02/06/2019 7:55 PM EDT 02/06/2019 7:55 PM EDT Jaxon Fontaine MD POINT OF CARE TEST O RDERAJOHN Performing Organization Address [facility] de Phone Number [facility] [place] [address] * POCT Glucose (02/06/2019 3:14 PM EDT) Glucose, POC 183 65 - 199 mg/dL [facility] Comment: Supplemental ranges: <140 mg/dL before meals <180 mg/dL all other times of the day Blood specimen (specimen) 02/06/2019 3:14 PM EDT 02/06/2019 3:14 PM EDT Jaxon Fontaine MD POINT OF CARE TEST O RDERABLES Performing Organization Address [facility] de Phone Number [facility] [place] [address] * Heparin (unfractionated) Level (02/06/2019 3:03 PM EDT) Pathologist [facility] [place] UF Heparin 0.85 IU/mL [facility] Comment: Guidelines for therapeutic unfractionated heparin levels are summarized below. Heparin (Anti-Xa) levels should be determined in a plasma sample that has been drawn 6 hours after a dose change i.e., steady-state has been reached. DRUG ?Dosing Schedule ? Target Peak Steady-State ?Heparin (Anti-Xa) Levels (Units/mL) Unfractionated ?Continuous infusion ?0.3-0.7 Heparin ?0.3-0.6 for some neurology indications Blood specimen (specimen) 02/06/2019 3:03 PM EDT 02/06/2019 3:19 PM EDT Narrative Resulting Agency Comment Spec In Lab Jaxon Fontaine MD HEMATOLOGY ORDERABLE S Performing Organization Address [facility] Co de Phone Number [facility] [place] [address] * POCT Glucose (02/06/2019 11:09 AM EDT) Pathologist [facility] [place] Glucose, POC 129 65 - 199 mg/dL [facility] Comment: Supplemental ranges: <140 mg/dL before meals <180 mg/dL all other times of the day Blood specimen (specimen) 02/06/2019 11:09 AM EDT 02/06/2019 11:09 AM EDT Jaxon Fnotaine MD POINT OF CARE TEST O JODIE Performing Organization Address [facility] Co de Phone Number [facility] [place] [address] * POCT Glucose (02/06/2019 7:36 AM EDT) [facility] Glucose, POC 94 65 - 199 mg/dL [facility] Comment: Supplemental ranges: <140 mg/dL before meals <180 mg/dL all other times of the day Blood specimen (specimen) 02/06/2019 7:36 AM EDT 02/06/2019 7:36 AM EDT Jaxon Fontaine MD POINT OF CARE TEST O JODIE Performing Organization Address [facility] Co de Phone Number [facility] [place] [address] * Heparin (unfractionated) Level (02/06/2019 4:38 AM EDT) [facility] UF Heparin 0.72 IU/mL [facility] Comment: Guidelines for therapeutic unfractionated heparin levels are summarized below. Heparin (Anti-Xa) levels should be determined in a plasma sample that has been drawn 6 hours after a dose change i.e., steady-state has been reached. DRUG ?Dosing Schedule ? Target Peak Steady-State ?Heparin (Anti-Xa) Levels (Units/mL) Unfractionated ?Continuous infusion ?0.3-0.7 Heparin ?0.3-0.6 for some neurology indications Blood specimen (specimen) 02/06/2019 4:38 AM EDT 02/06/2019 5:17 AM EDT Narrative Resulting Agency Comment Spec In Lab Jaxon Fontaine MD HEMATOLOGY ORDERABLE S [facility] [place] [address] * (ABNORMAL) Differential, Automated (02/06/2019 4:38 AM EDT) Neutrophil % 54.9 % [facility] Neutrophil Absolute 4.14 1.70 - 6.10 x10(3)/mc L [facility] Lymph % 29.8 % [facility] Lymphocytes Abs 2.2 0.9 - 3.2 x10(3)/ L [facility] Monocyte % 8.2 % [facility] Monocyte Abs 0.6 0.3 - 0.9 x10(3)/ L [facility] Eos % 6.5 % [facility] Eosinophils Abs 0.5(H) 0.0 - 0.4 x10(3)/ L [facility] Basophil % 0.3 % [facility] Baso Absolute 0.0 0.0 - 0.1 x10(3)/ L [facility] Immature Gran % 0.30 % [facility] Comment: Immature granulocytes(IG's)percentage and absolute count will include metamyelocytes, myelocytes, and promyelocytes. Blood smears from CBCs yielding IG's will be scanned manually for concordance. If this scan disagrees with the automated IG or if promyelocytes are noted, a manual differential will be performed. Immature Gran Absolute 0.02 0.00 - 0.04 x10(3)/mc L [facility] Blood specimen (specimen) 02/06/2019 4:38 AM EDT 02/06/2019 5:17 AM EDT Narrative Resulting Agency Comment Spec In Lab Jose Juan Keith MD HEMATOLOGY ORDERABLE S Performing Organization Address City/[facility]/ZIP Co de Phone Number [facility] [place] [address] * (ABNORMAL) Hemogram (02/06/2019 4:38 AM EDT) [facility] White Blood Cell 7.5 4.0 - 9.5 x10(3)/[facility] Red Blood Cell 3.24(L) 4.00 - 5.21 x10(6)/[facility] Hemoglobin 9.5(L) 11.7 - 15.5 gm/dL [facility] Hematocrit 31.6(L) 35.7 - 45.8 % [facility] Mean Cell Volume 97.5(H) 82.6 - 94.4 fL [facility] Mean Cell Hemoglobin 29.3 27.1 - 32.0 pg [facility] Mean Cell Hemoglobin Concentration 30.1(L) 31.7 - 35.0 gm/dL [facility] Platelet 201 145 - 357 x10(3)/[facility] RDW Standard Deviation 49.4(H) 37.0 - 46.0 [facility] RDW coefficient of variation 13.6 11.5 - 14.1 % [facility] Mean Platelet Volume 10.6 7.6 - 12.9 [facility] NRBC% auto 0.0 % [facility] NRBC Absolute 0.000 0.000 - 0.000 x10(3)/[facility] Blood specimen (specimen) 02/06/2019 4:38 AM EDT 02/06/2019 5:17 AM EDT Narrative Resulting Agency Comment Spec In Lab Jose Juan Keith MD HEMATOLOGY ORDERABLE S [facility] [place] [address] * (ABNORMAL) Basic Metabolic Panel (non-fasting) (02/06/2019 4:38 AM EDT) [facility] Glucose 142 65 - 199 mg/dL [facility] Comment:Diabetes: >=200 mg/d L plus symptoms Blood Urea Nitrogen 20(H) 8 - 18 mg/dL [facility] Creatinine 1.50(H) 0.70 - 1.20 mg/dL [facility] Sodium 140 135 - 145 mmol/L [facility] Potassium 4.5 3.5 - 5.0 mmol/L [facility] Comment: Please note: ??Patients with WBC >100,000 may have falsely elevated Potassium levels. ??For accurate Potassium quantification in these patients send serum separator tube ([facility] top) for subsequent determinations. ??Contact the Clinical Chemistry Laboratory if there are any questions. Chloride 106 98 - 107 mmol/L [facility] Carbon Dioxide 25 22 - 31 mmol/L [facility] Anion Gap 9 5 - 15 mmol/L [facility] Calcium 8.3(L) 8.5 - 10.5 mg/dL [facility] Est Glomerular Filtration Rate 37(L) >=60 mL/min/1. 73 m?? [facility] Comment: The eGFR was calculated using the CKD-EPI equation. As with all creatinine based estimates of kidney function, eGFR values calculated with the CKD-EPI equation are not accurate in patients with acute kidney failure, extremes of body mass or the acutely ill. [email or web address] [email or web address] CITYnkf eGFR 43(L) >=60 mL/min/1. 73 m?? [facility] Comment: The eGFR was calculated using the CKD-EPI equation. As with all creatinine based estimates of kidney function, eGFR values calculated with the CKD-EPI equation are not accurate in patients with acute kidney failure, extremes of body mass or the acutely ill. [email or web address] [email or web address] CITYnkf Blood specimen (specimen) 02/06/2019 4:38 AM EDT 02/06/2019 5:17 AM EDT Narrative Resulting Agency Comment Spec In Lab Jaxon Fontaine MD CHEMISTRY ORDERABLES [facility] [place] [address] * POCT Glucose (02/06/2019 3:41 AM EDT) Glucose, POC 173 65 - 199 mg/dL [facility] Comment: Supplemental ranges: <140 mg/dL before meals <180 mg/dL all other times of the day Blood specimen (specimen) 02/06/2019 3:41 AM EDT 02/06/2019 3:41 AM EDT Jaxon Fontaine MD POINT OF CARE TEST O RDERABLES Performing Organization Address [facility] de Phone Number [facility] [place] [address] * POCT Glucose (02/05/2019 11:19 PM EDT) Glucose, POC 162 65 - 199 mg/dL [facility] Comment: Supplemental ranges: <140 mg/dL before meals <180 mg/dL all other times of the day Blood specimen (specimen) 02/05/2019 11:19 PM EDT 02/05/2019 11:19 PM EDT Jaxon Fontaine MD POINT OF CARE TEST O RDERAJOHN Performing Organization Address [facility] de Phone Number [facility] [place] [address] * Heparin (unfractionated) Level (02/05/2019 9:46 PM EDT) UF Heparin 0.82 IU/mL [facility] Comment: Guidelines for therapeutic unfractionated heparin levels are summarized below. Heparin (Anti-Xa) levels should be determined in a plasma sample that has been drawn 6 hours after a dose change i.e., steady-state has been reached. DRUG ?Dosing Schedule ? Target Peak Steady-State ?Heparin (Anti-Xa) Levels (Units/mL) Unfractionated ?Continuous infusion ?0.3-0.7 Heparin ?0.3-0.6 for some neurology indications Blood specimen (specimen) 02/05/2019 9:46 PM EDT 02/05/2019 10:05 PM EDT Narrative Resulting Agency Comment Spec In Lab Jaxon Fontaine MD HEMATOLOGY ORDERABLE S Performing Organization Address [facility] de Phone Number [facility] [place] [address] * POCT Glucose (02/05/2019 7:30 PM EDT) Glucose, POC 194 65 - 199 mg/dL [facility] Comment: Supplemental ranges: <140 mg/dL before meals <180 mg/dL all other times of the day Blood specimen (specimen) 02/05/2019 7:30 PM EDT 02/05/2019 7:30 PM EDT Jaxon Fontaine MD POINT OF CARE TEST O RDERABLES Performing Organization Address [facility] de Phone Number [facility] [place] [address] * (ABNORMAL) POCT Glucose (02/05/2019 3:06 PM EDT) Glucose, POC 214(H) 65 - 199 mg/dL [facility] Comment: Supplemental ranges: <140 mg/dL before meals <180 mg/dL all other times of the day Blood specimen (specimen) 02/05/2019 3:06 PM EDT 02/05/2019 3:06 PM EDT Jaxon Fontaine MD POINT OF CARE TEST O RDERABLES Performing Organization Address City/[facility]/ZIP Co de Phone Number [facility] [place] [address] * Differential, Automated (02/05/2019 2:40 PM EDT) Neutrophil % 66.8 % [facility] Neutrophil Absolute 5.91 1.70 - 6.10 x10(3)/[facility] Lymph % 21.7 % [facility] Lymphocytes Abs 1.9 0.9 - 3.2 x10(3)/[facility] Monocyte % 6.0 % [facility] Monocyte Abs 0.5 0.3 - 0.9 x10(3)/[facility] Eos % 4.7 % [facility] Eosinophils Abs 0.4 0.0 - 0.4 x10(3)/[facility] Basophil % 0.6 % [facility] Baso Absolute 0.0 0.0 - 0.1 x10(3)/[facility] Immature Gran % 0.20 % [facility] Blood specimen (specimen) 02/05/2019 2:40 PM EDT 02/05/2019 3:04 PM EDT Narrative Resulting Agency Comment Spec In Lab Shiv Middleton MD HEMATOLOGY ORDERABLE S Performing Organization Address City/[facility]/ZIP Co de Phone Number [facility] [place] [address] * (ABNORMAL) Hemogram (02/05/2019 2:40 PM EDT) White Blood Cell 8.8 4.0 - 9.5 x10(3)/mc L [facility] Red Blood Cell 3.49(L) 4.00 - 5.21 x10(6)/mc L [facility] Hemoglobin 10.6(L) 11.7 - 15.5 gm/dL [facility] Hematocrit 33.8(L) 35.7 - 45.8 % [facility] Mean Cell Volume 96.8(H) 82.6 - 94.4 fL [facility] Mean Cell Hemoglobin 30.4 27.1 - 32.0 pg [facility] Mean Cell Hemoglobin Concentration 31.4(L) 31.7 - 35.0 gm/dL [facility] Platelet 223 145 - 357 x10(3)/[facility] RDW Standard Deviation 49.5(H) 37.0 - 46.0 [facility] RDW coefficient of variation 13.8 11.5 - 14.1 % [facility] Mean Platelet Volume 10.8 7.6 - 12.9 fL [facility] NRBC% auto 0.0 % [facility] NRBC Absolute 0.000 0.000 - 0.000 x10(3)/[facility] Blood specimen (specimen) 02/05/2019 2:40 PM EDT 02/05/2019 3:04 PM EDT Narrative Resulting Agency Comment Spec In Lab Shiv Middleton MD HEMATOLOGY ORDERABLE S [facility] [place] [address] * Heparin (unfractionated) Level (02/05/2019 2:40 PM EDT) UF Heparin 0.71 IU/mL [facility] Comment: Guidelines for therapeutic unfractionated heparin levels are summarized below. Heparin (Anti-Xa) levels should be determined in a plasma sample that has been drawn 6 hours after a dose change i.e., steady-state has been reached. DRUG ?Dosing Schedule ? Target Peak Steady-State ?Heparin (Anti-Xa) Levels (Units/mL) Unfractionated ?Continuous infusion ?0.3-0.7 Heparin ?0.3-0.6 for some neurology indications Blood specimen (specimen) 02/05/2019 2:40 PM EDT 02/05/2019 3:04 PM EDT Narrative Resulting Agency Comment Spec In Lab Jaxon Fontaine MD HEMATOLOGY ORDERABLE S Performing Organization Address [facility] de Phone Number [facility] [place] [address] * (ABNORMAL) POCT Glucose (02/05/2019 11:29 AM EDT) Glucose, POC 211(H) 65 - 199 mg/dL [facility] Comment: Supplemental ranges: <140 mg/dL before meals <180 mg/dL all other times of the day Blood specimen (specimen) 02/05/2019 11:29 AM EDT 02/05/2019 11:29 AM EDT Jaxon Fontaine MD POINT OF CARE TEST O RDERABLES Performing Organization Address [facility] de Phone Number [facility] [place] [address] * POCT Glucose (02/05/2019 9:48 AM EDT) Glucose, POC 140 65 - 199 mg/dL [facility] Comment: Supplemental ranges: <140 mg/dL before meals <180 mg/dL all other times of the day Blood specimen (specimen) 02/05/2019 9:48 AM EDT 02/05/2019 9:48 AM EDT Jaxon Fontaine MD POINT OF CARE TEST O RDERABLES [facility] [place] [address] * Differential, Automated (02/05/2019 8:39 AM EDT) Neutrophil % 72.6 % [facility] Neutrophil Absolute 5.36 1.70 - 6.10 x10(3)/[facility] Lymph % 16.4 % [facility] Lymphocytes Abs 1.2 0.9 - 3.2 x10(3)/[facility] Monocyte % 6.9 % [facility] Monocyte Abs 0.5 0.3 - 0.9 x10(3)/[facility] Eos % 3.4 % [facility] Eosinophils Abs 0.2 0.0 - 0.4 x10(3)/[facility] Basophil % 0.4 % [facility] Baso Absolute 0.0 0.0 - 0.1 x10(3)/[facility] Immature Gran % 0.30 % [facility] Comment: [...] [facility] Blood specimen (specimen) 02/05/2019 8:39 AM EDT 02/05/2019 9:16 AM EDT Narrative Resulting Agency Comment Spec In Lab Shiv Middleton MD HEMATOLOGY ORDERABLE S [facility] [place] [address] * (ABNORMAL) Hemogram (02/05/2019 8:39 AM EDT) White Blood Cell 7.4 4.0 - 9.5 x10(3)/mc L [facility] Red Blood Cell 3.46(L) 4.00 - 5.21 x10(6)/mc L [facility] Hemoglobin 10.4(L) 11.7 - 15.5 gm/dL [facility] Hematocrit 33.8(L) 35.7 - 45.8 % [facility] Mean Cell Volume 97.7(H) 82.6 - 94.4 fL [facility] Mean Cell Hemoglobin 30.1 27.1 - 32.0 pg [facility] Mean Cell Hemoglobin Concentration 30.8(L) 31.7 - 35.0 gm/dL [facility] Platelet 209 145 - 357 x10(3)/mc L [facility] RDW Standard Deviation 49.1(H) 37.0 - 46.0 [facility] RDW coefficient of variation 13.8 11.5 - 14.1 % [facility] Mean Platelet Volume 10.5 7.6 - 12.9 [facility] NRBC% auto 0.0 % [facility] NRBC Absolute 0.000 0.000 - 0.000 x10(3)/mc L [facility] Blood specimen (specimen) 02/05/2019 8:39 AM EDT 02/05/2019 9:16 AM EDT Narrative Resulting Agency Comment Spec In Lab Shiv Middleton MD HEMATOLOGY ORDERABLE S [facility] [place] [address] * Heparin (unfractionated) Level (02/05/2019 8:39 AM EDT) Pathologist [facility] [place] UF Heparin 0.06 IU/mL [facility] Comment: Guidelines for therapeutic unfractionated heparin levels are summarized below. Heparin (Anti-Xa) levels should be determined in a plasma sample that has been drawn 6 hours after a dose change i.e., steady-state has been reached. DRUG ?Dosing Schedule ? Target Peak Steady-State ?Heparin (Anti-Xa) Levels (Units/mL) Unfractionated ?Continuous infusion ?0.3-0.7 Heparin ?0.3-0.6 for some neurology indications Blood specimen (specimen) 02/05/2019 8:39 AM EDT 02/05/2019 9:15 AM EDT Narrative Resulting Agency Comment Spec In Lab Jaxon Fontaine MD HEMATOLOGY ORDERABLE S Performing Organization Address [facility] Co de Phone Number [facility] [place] [address] * POCT Glucose (02/05/2019 7:30 AM EDT) Pathologist [facility] [place] Glucose, POC 68 65 - 199 mg/dL [facility] Comment: Supplemental ranges: <140 mg/dL before meals <180 mg/dL all other times of the day Blood specimen (specimen) 02/05/2019 7:30 AM EDT 02/05/2019 7:30 AM EDT Jaxon Fontaine MD POINT OF CARE TEST O RDERABLES Performing Organization Address [facility]/[place] [address] * Differential, Automated (02/05/2019 4:48 AM EDT) Pathologist [facility] [place] Neutrophil % 65.4 % [facility] Neutrophil Absolute 4.28 1.70 - 6.10 x10(3)/[facility] Lymph % 23.4 % [facility] Lymphocytes Abs 1.5 0.9 - 3.2 x10(3)/[facility] Monocyte % 7.2 % [facility] Monocyte Abs 0.5 0.3 - 0.9 x10(3)/[facility]OR[facility] Eos % 3.2 % [facility] Eosinophils Abs 0.2 0.0 - 0.4 x10(3)/[facility]OR[facility] Basophil % 0.5 % [facility] Baso Absolute 0.0 0.0 - 0.1 x10(3)/[facility] Immature Gran % 0.30 % [facility] Comment: [...] [facility] Blood specimen (specimen) 02/05/2019 4:48 AM EDT 02/05/2019 4:55 AM EDT Narrative Resulting Agency Comment Spec In Lab Jose Juan Keith [place] [address] * (ABNORMAL) Hemogram (02/05/2019 4:48 AM EDT) [facility] White Blood Cell 6.5 4.0 - 9.5 x10(3)/mc L [facility] Red Blood Cell 3.37(L) 4.00 - 5.21 x10(6)/mc L [facility] Hemoglobin 9.9(L) 11.7 - 15.5 gm/dL [facility] Hematocrit 32.4(L) 35.7 - 45.8 % [facility] Mean Cell Volume 96.1(H) 82.6 - 94.4 fL [facility] Mean Cell Hemoglobin 29.4 27.1 - 32.0 pg [facility] Mean Cell Hemoglobin Concentration 30.6(L) 31.7 - 35.0 gm/dL [facility] Platelet 196 145 - 357 x10(3)/[facility] RDW Standard Deviation 49.0(H) 37.0 - 46.0 [facility] RDW coefficient of variation 13.7 11.5 - 14.1 % [facility] Mean Platelet Volume 9.8 7.6 - 12.9 [facility]ORY NRBC% auto 0.0 % [facility] NRBC Absolute 0.000 0.000 - 0.000 x10(3)/[facility] Blood specimen (specimen) 02/05/2019 4:48 AM EDT 02/05/2019 4:55 AM EDT Narrative Resulting Agency Comment Spec In Lab Jose Juan Keith MD HEMATOLOGY ORDERABLE S [facility] [place] [address] * (ABNORMAL) Basic Metabolic Panel (non-fasting) (02/05/2019 4:48 AM EDT) Glucose 98 65 - 199 mg/dL [facility] Comment:Diabetes: >=200 mg/d L plus symptoms Blood Urea Nitrogen 23(H) 8 - 18 mg/dL [facility] Creatinine 1.41(H) 0.70 - 1.20 mg/dL [facility] Sodium 141 135 - 145 mmol/L [facility] Potassium 4.2 3.5 - 5.0 mmol/L [facility] Comment: Please note: ??Patients with WBC >100,000 may have falsely elevated Potassium levels. ??For accurate Potassium quantification in these patients send serum separator tube (gold top) for subsequent determinations. ??Contact the Clinical Chemistry Laboratory if there are any questions. Chloride 109(H) 98 - 107 mmol/L [facility] Carbon Dioxide 25 22 - 31 mmol/L [facility] Anion Gap 7 5 - 15 mmol/L [facility] Calcium 8.0(L) 8.5 - 10.5 mg/dL [facility] Est Glomerular Filtration Rate 40(L) >=60 mL/min/1. 73 m?? [facility] Comment: The eGFR was calculated using the CKD-EPI equation. As with all creatinine based estimates of kidney function, eGFR values calculated with the CKD-EPI equation are not accurate in patients with acute kidney failure, extremes of body mass or the acutely ill. [email or web address] eGFR 47(L) >=60 mL/min/1. 73 m?? [facility] Comment: The eGFR was calculated using the CKD-EPI equation. As with all creatinine based estimates of kidney function, eGFR values calculated with the CKD-EPI equation are not accurate in patients with acute kidney failure, extremes of body mass or the acutely ill. [email or web address] Blood specimen (specimen) 02/05/2019 4:48 AM EDT 02/05/2019 4:55 AM EDT Narrative Resulting Agency Comment Spec In Lab Jaxon Fontaine MD CHEMISTRY ORDERABLES [facility] [place] [address] * POCT Glucose (02/05/2019 4:42 AM EDT) Glucose, POC 109 65 - 199 mg/dL [facility] Comment: Supplemental ranges: <140 mg/dL before meals <180 mg/dL all other times of the day Blood specimen (specimen) 02/05/2019 4:42 AM EDT 02/05/2019 4:42 AM EDT Jaxon Fontaine MD POINT OF CARE TEST O RDERAJOHN Performing Organization Address City/[facility]/ZIP Co de Phone Number [facility] [place] [address] * POCT Glucose (02/05/2019 12:27 AM EDT) Glucose, POC 179 65 - 199 mg/dL [facility] Comment: Supplemental ranges: <140 mg/dL before meals <180 mg/dL all other times of the day Blood specimen (specimen) 02/05/2019 12:27 AM EDT 02/05/2019 12:27 AM EDT Jaxon Fontaine MD POINT OF CARE TEST O JODIE Performing Organization Address [facility] Co de Phone Number [facility] [place] [address] * POCT Glucose (02/04/2019 8:46 PM EDT) Glucose, POC 145 65 - 199 mg/dL [facility] Comment: Supplemental ranges: <140 mg/dL before meals <180 mg/dL all other times of the day Blood specimen (specimen) 02/04/2019 8:46 PM EDT 02/04/2019 8:46 PM EDT Jaxon Fontaine MD POINT OF CARE TEST O RDERAJOHN [facility] [place] [address] * POCT Glucose (02/04/2019 7:11 PM EDT) Glucose, POC 67 65 - 199 mg/dL [facility] Comment: Supplemental ranges: <140 mg/dL before meals <180 mg/dL all other times of the day Blood specimen (specimen) 02/04/2019 7:11 PM EDT 02/04/2019 7:11 PM EDT Jaxon Fontaine MD POINT OF CARE TEST O JODIE Performing Organization Address [facility] Co de Phone Number [facility] [place] [address] * POCT Glucose (02/04/2019 5:11 PM EDT) Glucose, POC 99 65 - 199 mg/dL [facility] Comment: Supplemental ranges: <140 mg/dL before meals <180 mg/dL all other times of the day Blood specimen (specimen) 02/04/2019 5:11 PM EDT 02/04/2019 5:11 PM EDT Jaxon Fontaine MD POINT OF CARE TEST O JODIE Performing Organization Address [facility] Co de Phone Number [facility] [place] [address] * (ABNORMAL) BLOOD GAS 2 ARTERIAL (02/04/2019 3:26 PM EDT) pH, Arterial 7.35 7.35 - 7.45 [facility] PCO2, Arterial 39 35 - 45 mmHg [facility] PO2, Arterial 82(L) 85 - 104 mmHg [facility] Bicarbonate, Arterial 21.3 20.0 - 26.0 mmol/L [facility] Base Excess, Arterial -4.6(L) -3.0 - 3.0 mmol/L [facility] Hgb Blood Gas 11.6(L) 11.7 - 15.5 gm/dL [facility] Oxyhemoglobin, Arterial 93.1(L) 94.0 - 97.0 % [facility] Carboxyhemoglob in, Arterial 3.2 % [facility] Comment: Nonsmokers: 0.5-1.5% COHB Smokers: Variable, but usually less than 10% Toxic: 20-30% COHB Lethal: Greater than 60% COHB Methemoglobin, Arterial 0.3 <=1.5 % [facility] Na Whole Blood 138 135 - 145 mmol/L [facility] K Whole Blood 4.5 3.5 - 5.0 mmol/L [facility] Comment: Please note: Patients with WBC >100,000 may have falsely elevated Potassium levels. Contact the Clinical Chemistry Laboratory if there are any questions. ICa Whole Blood 1.15 1.15 - 1.33 mmol/L [facility] Comment: Note: ??Total bilirubin higher than 20 mg/dL may lead to falsely low ionized calcium. CL Whole Blood 109(H) 98 - 107 mmol/L [facility] Gluc Whole Bld 123 65 - 199 mg/dL [facility] Comment:Diabetes: >=200 mg/d L plus symptoms. Lactate WB 1.0 0.5 - 2.2 mmol/L [facility] FIO2 Art 39 % [facility] PF Ratio Art 210 [facility] Temp Art 35.9 Celsius [facility] Blood specimen (specimen) 02/04/2019 3:26 PM EDT 02/04/2019 3:26 PM EDT Jaxon Fontaine MD POINT OF CARE TEST O RDERABLES [facility] [place] [address] * (ABNORMAL) BLOOD GAS 2 ARTERIAL (02/04/2019 2:22 PM EDT) pH, Arterial 7.33(L) 7.35 - 7.45 [facility] PCO2, Arterial 42 35 - 45 mmHg [facility] PO2, Arterial 229(H) 85 - 104 mmHg [facility] Bicarbonate, Arterial 22.0 20.0 - 26.0 mmol/L [facility] Base Excess, Arterial -4.2(L) -3.0 - 3.0 mmol/L [facility] Hgb Blood Gas 11.8 11.7 - 15.5 gm/dL [facility] Oxyhemoglobin, Arterial 95.2 94.0 - 97.0 % [facility] Carboxyhemoglob in, Arterial 3.7 % [facility] Comment: Nonsmokers: 0.5-1.5% COHB Smokers: Variable, but usually less than 10% Toxic: 20-30% COHB Lethal: Greater than 60% COHB Methemoglobin, Arterial 0.3 <=1.5 % [facility] Na Whole Blood 137 135 - 145 mmol/L [facility] K Whole Blood 4.5 3.5 - 5.0 mmol/L [facility] Comment: Please note: Patients with WBC >100,000 may have falsely elevated Potassium levels. Contact the Clinical Chemistry Laboratory if there are any questions. ICa Whole Blood 1.14(L) 1.15 - 1.33 mmol/L [facility] Comment: Note: ??Total bilirubin higher than 20 mg/dL may lead to falsely low ionized calcium. CL Whole Blood 109(H) 98 - 107 mmol/L [facility] Gluc Whole Bld 125 65 - 199 mg/dL [facility] Comment:Diabetes: >=200 mg/d L plus symptoms. Lactate WB 1.2 0.5 - 2.2 mmol/L [facility] FIO2 Art 72 % [facility] PF Ratio Art 318 [facility] Temp Art 35.5 Celsius [facility] Blood specimen (specimen) 02/04/2019 2:22 PM EDT 02/04/2019 2:22 PM EDT Jaxon Fontaine MD POINT OF CARE TEST O RDERAJOHN [facility] [place] [address] * (ABNORMAL) BLOOD GAS 2 ARTERIAL (02/04/2019 12:50 PM EDT) pH, Arterial 7.36 7.35 - 7.45 [facility] PCO2, Arterial 37 35 - 45 mmHg [facility] PO2, Arterial 91 85 - 104 mmHg [facility] Bicarbonate, Arterial 20.6 20.0 - 26.0 mmol/L [facility] Base Excess, Arterial -5.2(L) -3.0 - 3.0 mmol/L [facility] Hgb Blood Gas 12.0 11.7 - 15.5 gm/dL [facility] Oxyhemoglobin, Arterial 93.5(L) 94.0 - 97.0 % [facility] Carboxyhemoglob in, Arterial 3.8 % [facility] Comment: Nonsmokers: 0.5-1.5% COHB Smokers: Variable, but usually less than 10% Toxic: 20-30% COHB Lethal: Greater than 60% COHB Methemoglobin, Arterial 0.3 <=1.5 % [facility] Na Whole Blood 139 135 - 145 mmol/L [facility] K Whole Blood 4.4 3.5 - 5.0 mmol/L [facility] Comment: Please note: Patients with WBC >100,000 may have falsely elevated Potassium levels. Contact the Clinical Chemistry Laboratory if there are any questions. ICa Whole Blood 1.15 1.15 - 1.33 mmol/L [facility] Comment: Note: ??Total bilirubin higher than 20 mg/dL may lead to falsely low ionized calcium. CL Whole Blood 108(H) 98 - 107 mmol/L [facility] Gluc Whole Bld 140 65 - 199 mg/dL [facility] Comment:Diabetes: >=200 mg/d L plus symptoms. Lactate WB 0.9 0.5 - 2.2 mmol/L [facility] FIO2 Art 50 % [facility] PF Ratio Art 182 [facility] Temp Art 35.4 Celsius [facility] Blood specimen (specimen) Arterial Draw / Unknown 02/04/2019 12:50 PM EDT 02/04/2019 12:50 PM EDT Narrative Resulting Agency Comment Spec In Lab Jaxon Fontaine MD POINT OF CARE TEST O RDERABLES Performing Organization Address [facility] Co de Phone Number [facility] [place] [address] * POCT Glucose (02/04/2019 11:56 AM EDT) Glucose, POC 137 65 - 199 mg/dL [facility] Comment: Supplemental ranges: <140 mg/dL before meals <180 mg/dL all other times of the day Blood specimen (specimen) 02/04/2019 11:56 AM EDT 02/04/2019 11:56 AM EDT Jaxon Fontaine MD POINT OF CARE TEST O RDERABLES Performing Organization Address [facility] Co de Phone Number [facility] [place] [address] * EKG 12 Lead (02/04/2019 11:49 AM EDT) Ventricular rate 60 BPM MUSE SYSTEM Atrial Rate 60 BPM MUSE SYSTEM P-R Interval 192 ms MUSE SYSTEM QRS Duration 78 ms MUSE SYSTEM Q-T Interval 432 ms MUSE SYSTEM QTC Calculated (Bezet) 432 ms MUSE SYSTEM Calculated P [place] 55 degrees MUSE SYSTEM Calculated R [place] 1 degrees MUSE SYSTEM Calculated T [place] 42 degrees MUSE SYSTEM INTERPRETATION Normal sinus rhythm Normal ECG When compared with ECG of 21-JUN-2018 11:05, No significant change was found Confirmed by MD Flood Gregory A. ([id number]) on 02/05/2019 5:12:01 PM MUSE SYSTEM 02/04/2019 11:4 9 AM EDT 02/05/2019 5:12 PM EDT Jaxon Fontaine MD ECG ORDERABLES MUSE SYSTEM * ABORH Recheck Status (02/04/2019 10:45 AM EDT) ABORH Type Recheck Completed [facility] Blood specimen (specimen) 02/04/2019 10:45 AM EDT 02/04/2019 10:47 AM EDT Narrative Resulting Agency Comment Spec In Lab Jaxon Fontaine MD BLOOD BANK LAB ORDER FELIX [facility] [place] [address] * Antibody screen (02/04/2019 10:45 AM EDT) Ab Screen Interp Negative [facility] Expires at [id number] on: 02/07/2019 [facility] Blood specimen (specimen) 02/04/2019 10:45 AM EDT 02/04/2019 10:47 AM EDT Narrative Resulting Agency Comment Spec In Lab Jaxon Fontaine MD BLOOD BANK LAB ORDER FELIX Performing Organization Address City/[facility]/ZIP Co de Phone Number [facility] [place] [address] * ABO/Rh Typing (02/04/2019 10:45 AM EDT) ABORH Type A Neg [facility] Blood specimen (specimen) 02/04/2019 10:45 AM EDT 02/04/2019 10:47 AM EDT Narrative Resulting Agency Comment Spec In Lab Jaxon Fontaine MD BLOOD BANK LAB ORDER FELIX [facility] [place] [address] documented in this encounter Visit Diagnoses Not on filedocumented in this encounter Admitting Diagnoses Diagnosis PVD (peripheral vascular disease) Peripheral vascular disease, unspecified documented in this encounter Administered Medications Inactive Administered Medications - up to 3 most recent administrations Medication Order MAR Action Action Date Dose Rate Site acetaminophen (TYLENOL) tablet 500 mg 500 mg, Oral, EVERY 4 HOURS PRN, Starting on Mon02/04/19 at 2056, Until Mon02/08/19 at 1530, Pain, For Mild Pain (1-3) or Fever., Maximum dose of acetaminophen is 4000 mg from all sources in 24 hours., Routine Given 02/08/2019 4:35 AM EDT 500 mg Given 02/07/2019 9:03 PM EDT 500 mg Given 02/07/2019 1:17 PM EDT 500 mg aspirin EC tablet 81 mg 81 mg, Oral, DAILY, First dose on Mon02/05/19 at 0900, Until Discontinued, Routine Given 02/08/2019 9:10 AM EDT 81 mg Given 02/07/2019 9:43 AM EDT 81 mg Given 02/06/2019 8:40 AM EDT 81 mg carvedilol (COREG) tablet 1.56 mg 1.56 mg, Oral, 2 TIMES DAILY WITH MEALS, First dose on Mon02/04/19 at 2200, Until Discontinued, Routine Given 02/08/2019 9:10 AM EDT 1.56 mg Given 02/07/2019 4:45 PM EDT 1.56 mg Given 02/07/2019 9:43 AM EDT 1.56 mg citalopram (CeleXA) tablet 20 mg 20 mg, Oral, 2 TIMES DAILY, First dose on Mon02/04/19 at 2115, Until Discontinued, Routine Given 02/08/2019 9:0 9 AM EDT 20 mg Given 02/07/2019 9:00 PM EDT 20 mg Given 02/07/2019 9:42 AM EDT 20 mg dextrose 10% infusion 250 mL, Intravenous, EVERY 1 HOUR PRN, 1 dose, Starting on Mon02/08/19 at 1230, Until Mon02/08/19 at 1530, For BG 50-70 mg/dL: Oral treatment preferred:?? If able to drink, give 120 mL Juice or Regular (not diet) soda OR If NPO, give 15 gram glucose 40% oral gel massaged into buccal mucosa OR if unconscious or uncooperative, give 12.5 gram (25 mL) Dextrose 50% IV OR, if no IV access, give 1 mg Glucagon IM. , For BG less than 50 mg/dL: Oral treatment preferred:?? If able to drink, give 240 mL Juice or Regular (not diet) soda OR If NPO, give 30 gram glucose 40% oral gel massaged in buccal mucosa OR if unconscious or uncooperative, give 25 gram (50 mL) Dextrose 50% IV OR, if no IV access, give 1 mg Glucagon IM., Recheck BG in 30 minutes. May repeat juice, gel, dextrose or glucagon once per episode. , To avoid extravasation, push Dextrose 50% SLOWLY (3 mL over 1 minute) in a patent, running IV, preferably a central line. , For persistent hypoglycemia, consider longer-acting treatment for the duration of the active insulin. gelatin adsorbable (GELFOAM) sponge ONCE PRN, Starting on Mon02/04/19 at 1136, Until Mon02/08/19 at 1530, Intra-Operative (Intra-Procedure) Given 02/04/2019 11:36 AM EDT 4 each 19- Surgical Site glucagon (human recombinant) injection SolR 1 mg 1 mg, Intramuscular, EVERY 1 HOUR PRN, 1 dose, Starting on Mon02/08/19 at 1230, Until Mon02/08/19 at 1530, Low blood sugar, For BG 50-70 mg/dL: Oral treatment preferred:?? If able to drink, give 120 mL Juice or Regular (not diet) soda OR If NPO, give 15 gram glucose 40% oral gel massaged into buccal mucosa OR if unconscious or uncooperative, give 12.5 gram (25 mL) Dextrose 50% IV OR, if no IV access, give 1 mg Glucagon IM. For BG less than 50 mg/dL: Oral treatment preferred:?? If able to drink, give 240 mL Juice or Regular (not diet) soda OR If NPO, give 30 gram glucose 40% oral gel massaged in buccal mucosa OR if unconscious or uncooperative, give 25 gram (50 mL) Dextrose 50% IV OR, if no IV access, give 1 mg Glucagon IM. Recheck BG in 30 minutes. May repeat juice, gel, dextrose or glucagon once per episode. To avoid extravasation, push Dextrose 50% SLOWLY (3 mL over 1 minute) in a patent, running IV, preferably a central line. For persistent hypoglycemia, consider longer-acting treatment for the duration of the active insulin., Routine glucose (GLUTOSE) 40% oral gel 15-30 g, Buccal, EVERY 30 MIN PRN, 1 dose, Starting on Mon02/08/19 at 1230, Until Mon02/08/19 at 1530, Low blood sugar, For BG 50-70 mg/dL: Oral treatment preferred:?? If able to drink, give 120 mL Juice or Regular (not diet) soda OR If NPO, give 15 gram glucose 40% oral gel massaged into buccal mucosa OR if unconscious or uncooperative, give 12.5 gram (25 mL) Dextrose 50% IV OR, if no IV access, give 1 mg Glucagon IM. For BG less than 50 mg/dL: Oral treatment preferred:?? If able to drink, give 240 mL Juice or Regular (not diet) soda OR If NPO, give 30 gram glucose 40% oral gel massaged in buccal mucosa OR if unconscious or uncooperative, give 25 gram (50 mL) Dextrose 50% IV OR, if no IV access, give 1 mg Glucagon IM. Recheck BG in 30 minutes. May repeat juice, gel, dextrose or glucagon once per episode. To avoid extravasation, push Dextrose 50% SLOWLY (3 mL over 1 minute) in a patent, running IV, preferably a central line. For persistent hypoglycemia, consider longer-acting treatment for the duration of the active insulin. 1 tube contains 15 grams of glucose (net weight of tube = 37.5 grams., Routine heparin (Porcine) subcutaneous injection 5,000 Units 5,000 Units, Subcutaneous, EVERY 12 HOURS SCHEDULED (2 times per day), First dose on Mon02/08/19 at 0900, Until Discontinued, Routine Given 02/08/2019 9:11 AM EDT 5,000 Units INSULIN PUMP (PATIENT OWN) Subcutaneous, ONCE PRN, Other, No Documentation Needed on JUN. This is Placeholder Medication., Starting on Mon02/05/19 at 1127, 1 dose, Until Mon02/08/19 at 1530, Patient to administer per own pump. Before discontinuing the pump, obtain an order and administer subcutaneous basal insulin. Document bolus doses, as reported by patient, in the Doc Flowsheet, under POC Glucose Comments (Insulin Pump Bolus (Units))., Medication Name: aspart (Novolog) levothyroxine (SYNTHROID) tablet 125 mcg 125 mcg, Oral, EVERY MORNING, First dose on Mon02/05/19 at 0600, Until Discontinued, Routine Given 02/08/2019 6:09 AM EDT 125 mcg Given 02/07/2019 6:45 AM EDT 125 mcg Given 02/06/2019 5:49 AM EDT 125 mcg losartan (COZAAR) tablet 50 mg 50 mg, Oral, DAILY, First dose on Mon02/05/19 at 0900, Until Discontinued, Routine Given 02/08/2019 9:10 AM EDT 50 mg Given 02/07/2019 9:42 AM EDT 50 mg Given 02/06/2019 8:37 AM EDT 50 mg ondansetron (ZOFRAN) injection 4-8 mg 4-8 mg, Intravenous, EVERY 8 HOURS PRN, Starting on Mon02/04/19 at 2056, Until Mon02/08/19 at 1530, Nausea, Start with 4mg and if ineffective in 30 minutes, give an additional 4mg ondansetron (ZOFRAN) tablet 4-8 mg 4-8 mg, Oral, EVERY 8 HOURS PRN, Starting on Mon02/04/19 at 2056, Until Mon02/08/19 at 1530, Nausea, Vomiting, If multiple antiemetics are ordered, use ondansetron first. PO Preferred. If patient unable to take PO, may give IV if ordered. May repeat times one in 45 minutes if ineffective. , Routine oxyCODONE (ROXICODONE) immediate release tablet 5-10 mg 5-10 mg, Oral, EVERY 4 HOURS PRN, Starting on Mon02/04/19 at 1721, Until Mon02/08/19 at 1530, Pain, For Moderate Pain (4-6), Initial dose 5 mg. If pain control not adequate in 60 minutes, give additional 5 mg., Routine Given 02/07/2019 9:02 PM EDT 5 mg Given 02/07/2019 5:04 PM EDT 10 mg Given 02/07/2019 1:17 PM EDT 5 mg pantoprazole (PROTONIX) tablet 40 mg 40 mg, Oral, DAILY, First dose on Mon02/05/19 at 0900, Until Discontinued, DO NOT CRUSH OR OPEN, Routine Given 02/08/2019 9:10 AM EDT 40 mg Given 02/07/2019 9:42 AM EDT 40 mg Given 02/06/2019 8:40 AM EDT 40 mg simvastatin (ZOCOR) tablet 40 mg 40 mg, Oral, EVERY EVENING, First dose on Mon02/05/19 at 1700, Until Discontinued Given 02/07/2019 4:45 PM EDT 40 mg Given 02/06/2019 5:08 PM EDT 40 mg Given 02/05/2019 5:25 PM EDT 40 mg sodium chloride (OCEAN) 0.65 % nasal spray 1 spray 1 spray, Each Nare, 2 TIMES DAILY PRN, Starting on Mon02/06/19 at 1339, Until Mon02/08/19 at 1530, Congestion, Routine documented in this encounter Active and Recently Administered Medications Times are shown in EDT. Scheduled Medication Order 02/06/2019 02/07/2019 02/08/2019 aspirin EC tablet 81 mg 81 mg, Oral, DAILY, First dose on Mon02/05/19 at 0900, Until Discontinued, Routine 0840 (Given - Provider: Lulu Greene RN) 0943 (Given - Provider: Yue Lee RN) 0910 (Given - Provider: Yue Lee RN) carvedilol (COREG) tablet 1.56 mg 1.56 mg, Oral, 2 TIMES DAILY WITH MEALS, First dose on Mon02/04/19 at 2200, Until Discontinued, Routine 0839 (Given - Provider: Lulu Greene RN)1708 (Given - Provider: Lulu Greene RN) 0943 (Given - Provider: Yue Lee RN)1645 (Given - Provider: Yue Lee RN) 0910 (Given - Provider: Yue Lee RN) citalopram (CeleXA) tablet 20 mg 20 mg, Oral, 2 TIMES DAILY, First dose on Mon02/04/19 at 2115, Until Discontinued, Routine 0837 (Given - Provider: Lulu Greene RN)2042 (Given - Provider: Nathaly Sánchez RN) 0942 (Given - Provider: Yue Lee RN)2100 (Given - Provider: Mandy Ron RN) 0909 (Given - Provider: Yue Lee RN) heparin (Porcine) subcutaneous injection 5,000 Units 5,000 Units, Subcutaneous, EVERY 12 HOURS SCHEDULED (2 times per day), First dose on Mon02/08/19 at 0900, Until Discontinued, Routine 0911 (Given - Provider: Yue Lee RN) HYDROmorphone (DILAUDID) injection 0.2 mg (COMPLETED) 0.2 mg, Intravenous, ONCE, 1 dose, On Mon02/07/19 at 0415, Routine 0450 (Given - Provider: Nathaly Sánchez RN) levothyroxine (SYNTHROID) tablet 125 mcg 125 mcg, Oral, EVERY MORNING, First dose on Mon02/05/19 at 0600, Until Discontinued, Routine 0549 (Given - Provider: Miracle Blanco RN) 0645 (Given - Provider: Nathaly Sánchez RN) 0609 (Given - Provider: Mandy Ron RN) losartan (COZAAR) tablet 50 mg 50 mg, Oral, DAILY, First dose on Mon02/05/19 at 0900, Until Discontinued, Routine 0837 (Given - Provider: Lulu Greene RN) 0942 (Given - Provider: Yue Lee RN) 0910 (Given - Provider: Yue Lee RN) pantoprazole (PROTONIX) tablet 40 mg 40 mg, Oral, DAILY, First dose on Mon02/05/19 at 0900, Until Discontinued, DO NOT CRUSH OR OPEN, Routine 0840 (Given - Provider: Lulu Greene RN) 0942 (Given - Provider: Yue Lee RN) 0910 (Given - Provider: Yue Lee, TAMEKA) simvastatin (ZOCOR) tablet 40 mg 40 mg, Oral, EVERY EVENING, First dose on Mon02/05/19 at 1700, Until Discontinued 1708 (Given - Provider: Lulu Greene RN) 1645 (Given - Provider: Yue Lee, TAMEKA) Continuous Medication Order 02/06/2019 02/07/2019 02/08/2019 heparin 25,000 units in sodium chloride 0.45% 500 mL infusion (CANCELED)(Linked Group 1) 0-5,000 Units/hr (0-100 mL/hr), Intravenous, CONTINUOUS, Starting on Tu02/05/19 at 1430, Until Mon02/06/19 at 0805, Begin infusion at 1,450 units per hr (15 units/kg/hr). MAX INITIAL infusion rate is 1,750 units/hr Target Heparin UFH Level (anti-Xa activity) = 0.3 - 0.7 IU/mL Start adjustment schedule 6 hours after starting infusion. If Heparin UFH Level is: - less than 0.1 IU/mL, administer PRN bolus and increase rate by 400 units per hr (4 units/kg/hr) - 0.1 - 0.29 IU/mL, administer PRN bolus and increase rate by 200 units per hr (2 units/kg/hr) - 0.3 - 0.7 IU/mL, No Change - 0.71 - 0.85 IU/mL, decrease rate by 100 units per hr (1 units/kg/hr) - 0.86 - 1.05 IU/mL, stop infusion for 30 minutes, then decrease rate by 200 units per hr (2 units/kg/hr) - Greater than 1.05 IU/mL, stop infusion for 60 minutes, then decrease rate by 300 units per hour (3 units/kg/hr) Repeat Heparin UFH Level 6 hours after initiating heparin. Then 6 hours after each dose adjustment. When 2 consecutive Heparin UFH Level within target range of 0.3 - 0.7 IU/mL, change Heparin UFH Level to once every 24 hours with A.M. labs while on heparin. RN to order required Heparin UFH Level - Per Protocol, Routine, Indication: Arterial Thrombosis 0551 (Rate/Dose Change - Provider: Miracle Blanco RN) heparin 25,000 units in sodium chloride 0.45% 500 mL infusion (CANCELED) 0-5,000 Units/hr (0-100 mL/hr), Intravenous, CONTINUOUS, Starting on Mon02/06/19 at 0830, Until [place] 02/07/19 at 1512, Begin infusion at 1,450 units per hr (15 units/kg/hr). MAX INITIAL infusion rate is 1,750 units/hr Target Heparin UFH Level (anti-Xa activity) = 0.3 - 0.7 IU/mL Start adjustment schedule 6 hours after starting infusion. If Heparin UFH Level is: - less than 0.1 IU/mL, administer PRN bolus and increase rate by 400 units per hr (4 units/kg/hr) - 0.1 - 0.29 IU/mL, administer PRN bolus and increase rate by 200 units per hr (2 units/kg/hr) - 0.3 - 0.7 IU/mL, No Change - 0.71 - 0.85 IU/mL, decrease rate by 100 units per hr (1 units/kg/hr) - 0.86 - 1.05 IU/mL, stop infusion for 30 minutes, then decrease rate by 200 units per hr (2 units/kg/hr) - Greater than 1.05 IU/mL, stop infusion for 60 minutes, then decrease rate by 300 units per hour (3 units/kg/hr) Repeat Heparin UFH Level 6 hours after initiating heparin. Then 6 hours after each dose adjustment. When 2 consecutive Heparin UFH Level within target range of 0.3 - 0.7 IU/mL, change Heparin UFH Level to once every 24 hours with A.M. labs while on heparin. RN to order required Heparin UFH Level - Per Protocol, Routine, Indication: Arterial Thrombosis 0830 (Rate/Dose Change - Provider: Lulu Greene RN)1543 (New Bag - Provider: Lulu Greene RN)1619 (Rate/Dose Change - Provider: Lulu Greene RN) 0448 (Rate/Dose Change - Provider: Nathaly Sánchez RN)1119 (New Bag - Provider: Toni Calabrese RN)1216 (Rate/Dose Verify - Provider: Nakia Cruz RN - Comment: UFH 0.67)1515 (Stopped - Provider: Nakia Cruz RN) PRN Medication Order 02/06/2019 02/07/2019 02/08/2019 acetaminophen (TYLENOL) tablet 500 mg 500 mg, Oral, EVERY 4 HOURS PRN, Starting on 02/04/19 at 2056, Until Mon02/08/19 at 1530, Pain, For Mild Pain (1-3) or Fever., Maximum dose of acetaminophen is 4000 mg from all sources in 24 hours., Routine 2202 (Given - Provider: Cassy Jordan RN) 0000 (Given - Provider: Mandy Ron RN)0319 (Given - Provider: Rosa Coreas RN)1312 (Given - Provider: Nakia Cruz RN)9481 (Given - Provider: Mandy Ron, TAMEKA) 3013 (Given - Provider: Mandy Ron RN) dextrose 10% infusion(Linked Group 2) 250 mL, Intravenous, EVERY 1 HOUR PRN, 1 dose, Starting on Mon02/08/19 at 1230, Until Mon02/08/19 at 1530, For BG 50-70 mg/dL: Oral treatment preferred:?? If able to drink, give 120 mL Juice or Regular (not diet) soda OR If NPO, give 15 gram glucose 40% oral gel massaged into buccal mucosa OR if unconscious or uncooperative, give 12.5 gram (25 mL) Dextrose 50% IV OR, if no IV access, give 1 mg Glucagon IM. , For BG less than 50 mg/dL: Oral treatment preferred:?? If able to drink, give 240 mL Juice or Regular (not diet) soda OR If NPO, give 30 gram glucose 40% oral gel massaged in buccal mucosa OR if unconscious or uncooperative, give 25 gram (50 mL) Dextrose 50% IV OR, if no IV access, give 1 mg Glucagon IM., Recheck BG in 30 minutes. May repeat juice, gel, dextrose or glucagon once per episode. , To avoid extravasation, push Dextrose 50% SLOWLY (3 mL over 1 minute) in a patent, running IV, preferably a central line. , For persistent hypoglycemia, consider longer-acting treatment for the duration of the active insulin. glucagon (human recombinant) injection SolR 1 mg(Linked Group 2) 1 mg, Intramuscular, EVERY 1 HOUR PRN, 1 dose, Starting on Mon02/08/19 at 1230, Until Mon02/08/19 at 1530, Low blood sugar, For BG 50-70 mg/dL: Oral treatment preferred:?? If able to drink, give 120 mL Juice or Regular (not diet) soda OR If NPO, give 15 gram glucose 40% oral gel massaged into buccal mucosa OR if unconscious or uncooperative, give 12.5 gram (25 mL) Dextrose 50% IV OR, if no IV access, give 1 mg Glucagon IM. For BG less than 50 mg/dL: Oral treatment preferred:?? If able to drink, give 240 mL Juice or Regular (not diet) soda OR If NPO, give 30 gram glucose 40% oral gel massaged in buccal mucosa OR if unconscious or uncooperative, give 25 gram (50 mL) Dextrose 50% IV OR, if no IV access, give 1 mg Glucagon IM. Recheck BG in 30 minutes. May repeat juice, gel, dextrose or glucagon once per episode. To avoid extravasation, push Dextrose 50% SLOWLY (3 mL over 1 minute) in a patent, running IV, preferably a central line. For persistent hypoglycemia, consider longer-acting treatment for the duration of the active insulin., Routine glucose (GLUTOSE) 40% oral gel(Linked Group 2) 15-30 g, Buccal, EVERY 30 MIN PRN, 1 dose, Starting on Mon02/08/19 at 1230, Until Mon02/08/19 at 1530, Low blood sugar, For BG 50-70 mg/dL: Oral treatment preferred:?? If able to drink, give 120 mL Juice or Regular (not diet) soda OR If NPO, give 15 gram glucose 40% oral gel massaged into buccal mucosa OR if unconscious or uncooperative, give 12.5 gram (25 mL) Dextrose 50% IV OR, if no IV access, give 1 mg Glucagon IM. For BG less than 50 mg/dL: Oral treatment preferred:?? If able to drink, give 240 mL Juice or Regular (not diet) soda OR If NPO, give 30 gram glucose 40% oral gel massaged in buccal mucosa OR if unconscious or uncooperative, give 25 gram (50 mL) Dextrose 50% IV OR, if no IV access, give 1 mg Glucagon IM. Recheck BG in 30 minutes. May repeat juice, gel, dextrose or glucagon once per episode. To avoid extravasation, push Dextrose 50% SLOWLY (3 mL over 1 minute) in a patent, running IV, preferably a central line. For persistent hypoglycemia, consider longer-acting treatment for the duration of the active insulin. 1 tube contains 15 grams of glucose (net weight of tube = 37.5 grams., Routine INSULIN PUMP (PATIENT OWN) Subcutaneous, ONCE PRN, Other, No Documentation Needed on JUN. This is Placeholder Medication., Starting on Mon02/05/19 at 1127, 1 dose, Until Mon02/08/19 at 1530, Patient to administer per own pump. Before discontinuing the pump, obtain an order and administer subcutaneous basal insulin. Document bolus doses, as reported by patient, in the Doc Flowsheet, under POC Glucose Comments (Insulin Pump Bolus (Units))., Medication Name: aspart (Novolog) ondansetron (ZOFRAN) injection 4-8 mg(Linked Group 3) 4-8 mg, Intravenous, EVERY 8 HOURS PRN, Starting on Mon02/04/19 at 2056, Until Mon02/08/19 at 1530, Nausea, Start with 4mg and if ineffective in 30 minutes, give an additional 4mg ondansetron (ZOFRAN) tablet 4-8 mg(Linked Group 3) 4-8 mg, Oral, EVERY 8 HOURS PRN, Starting on Mon02/04/19 at 2056, Until Mon02/08/19 at 1530, Nausea, Vomiting, If multiple antiemetics are ordered, use ondansetron first. PO Preferred. If patient unable to take PO, may give IV if ordered. May repeat times one in 45 minutes if ineffective. , Routine oxyCODONE (ROXICODONE) immediate release tablet 5-10 mg 5-10 mg, Oral, EVERY 4 HOURS PRN, Starting on Mon02/04/19 at 1721, Until Mon02/08/19 at 1530, Pain, For Moderate Pain (4-6), Initial dose 5 mg. If pain control not adequate in 60 minutes, give additional 5 mg., Routine 0355 (Given - Provider: Nathaly Sánchez RN)1317 (Given - Provider: Nakia Cruz RN)1704 (Given - Provider: Nakia Cruz, TAMEKA)2102 (Given - Provider: Mandy Ron RN) sodium chloride (OCEAN) 0.65 % nasal spray 1 spray 1 spray, Each Nare, 2 TIMES DAILY PRN, Starting on Mon02/06/19 at 1339, Until Mon02/08/19 at 1530, Congestion, Routine Linked Groups Order Group 1: heparin (porcine) injection 0-8,000 Units (CANCELED) 0-8,000 Units, Intravenous, BOLUS PER HEPARIN PROTOCOL, Starting on Mon02/05/19 at 1407, Until Mon02/06/19 at 0805, Per Protocol, START ADJUSTMENT SCHEDULE 6 HOURS AFTER STARTING INFUSION Heparin UFH Level between 0.1 - 0.29 IU/mL: Bolus 3,350 units Heparin UFH Level less than 0.1 IU/mL: Bolus 6,750 units, Routine And heparin 25,000 units in sodium chloride 0.45% 500 mL infusion (CANCELED)Jump to med 0-5,000 Units/hr (0-100 mL/hr), Intravenous, CONTINUOUS, Starting on Mon02/05/19 at 1430, Until Mon02/06/19 at 0805, Begin infusion at 1,450 units per hr (15 units/kg/hr). MAX INITIAL infusion rate is 1,750 units/hr Target Heparin UFH Level (anti-Xa activity) = 0.3 - 0.7 IU/mL Start adjustment schedule 6 hours after starting infusion. If Heparin UFH Level is: - less than 0.1 IU/mL, administer PRN bolus and increase rate by 400 units per hr (4 units/kg/hr) - 0.1 - 0.29 IU/mL, administer PRN bolus and increase rate by 200 units per hr (2 units/kg/hr) - 0.3 - 0.7 IU/mL, No Change - 0.71 - 0.85 IU/mL, decrease rate by 100 units per hr (1 units/kg/hr) - 0.86 - 1.05 IU/mL, stop infusion for 30 minutes, then decrease rate by 200 units per hr (2 units/kg/hr) - Greater than 1.05 IU/mL, stop infusion for 60 minutes, then decrease rate by 300 units per hour (3 units/kg/hr) Repeat Heparin UFH Level 6 hours after initiating heparin. Then 6 hours after each dose adjustment. When 2 consecutive Heparin UFH Level within target range of 0.3 - 0.7 IU/mL, change Heparin UFH Level to once every 24 hours with A.M. labs while on heparin. RN to order required Heparin UFH Level - Per Protocol, Routine, Indication: Arterial Thrombosis Group 2: glucose (GLUTOSE) 40% oral gelJump to med 15-30 g, Buccal, EVERY 30 MIN PRN, 1 dose, Starting on Mon02/08/19 at 1230, Until Mon02/08/19 at 1530, Low blood sugar, For BG 50-70 mg/dL: Oral treatment preferred:?? If able to drink, give 120 mL Juice or Regular (not diet) soda OR If NPO, give 15 gram glucose 40% oral gel massaged into buccal mucosa OR if unconscious or uncooperative, give 12.5 gram (25 mL) Dextrose 50% IV OR, if no IV access, give 1 mg Glucagon IM. For BG less than 50 mg/dL: Oral treatment preferred:?? If able to drink, give 240 mL Juice or Regular (not diet) soda OR If NPO, give 30 gram glucose 40% oral gel massaged in buccal mucosa OR if unconscious or uncooperative, give 25 gram (50 mL) Dextrose 50% IV OR, if no IV access, give 1 mg Glucagon IM. Recheck BG in 30 minutes. May repeat juice, gel, dextrose or glucagon once per episode. To avoid extravasation, push Dextrose 50% SLOWLY (3 mL over 1 minute) in a patent, running IV, preferably a central line. For persistent hypoglycemia, consider longer-acting treatment for the duration of the active insulin. 1 tube contains 15 grams of glucose (net weight of tube = 37.5 grams., Routine Or dextrose 10% infusionJump to med 250 mL, Intravenous, EVERY 1 HOUR PRN, 1 dose, Starting on Mon02/08/19 at 1230, Until Mon02/08/19 at 1530, For BG 50-70 mg/dL: Oral treatment preferred:?? If able to drink, give 120 mL Juice or Regular (not diet) soda OR If NPO, give 15 gram glucose 40% oral gel massaged into buccal mucosa OR if unconscious or uncooperative, give 12.5 gram (25 mL) Dextrose 50% IV OR, if no IV access, give 1 mg Glucagon IM. , For BG less than 50 mg/dL: Oral treatment preferred:?? If able to drink, give 240 mL Juice or Regular (not diet) soda OR If NPO, give 30 gram glucose 40% oral gel massaged in buccal mucosa OR if unconscious or uncooperative, give 25 gram (50 mL) Dextrose 50% IV OR, if no IV access, give 1 mg Glucagon IM., Recheck BG in 30 minutes. May repeat juice, gel, dextrose or glucagon once per episode. , To avoid extravasation, push Dextrose 50% SLOWLY (3 mL over 1 minute) in a patent, running IV, preferably a central line. , For persistent hypoglycemia, consider longer- acting treatment for the duration of the active insulin. Or glucagon (human recombinant) injection SolR 1 mgJump to med 1 mg, Intramuscular, EVERY 1 HOUR PRN, 1 dose, Starting on Mon02/08/19 at 1230, Until Mon02/08/19 at 1530, Low blood sugar, For BG 50-70 mg/dL: Oral treatment preferred:?? If able to drink, give 120 mL Juice or Regular (not diet) soda OR If NPO, give 15 gram glucose 40% oral gel massaged into buccal mucosa OR if unconscious or uncooperative, give 12.5 gram (25 mL) Dextrose 50% IV OR, if no IV access, give 1 mg Glucagon IM. For BG less than 50 mg/dL: Oral treatment preferred:?? If able to drink, give 240 mL Juice or Regular (not diet) soda OR If NPO, give 30 gram glucose 40% oral gel massaged in buccal mucosa OR if unconscious or uncooperative, give 25 gram (50 mL) Dextrose 50% IV OR, if no IV access, give 1 mg Glucagon IM. Recheck BG in 30 minutes. May repeat juice, gel, dextrose or glucagon once per episode. To avoid extravasation, push Dextrose 50% SLOWLY (3 mL over 1 minute) in a patent, running IV, preferably a central line. For persistent hypoglycemia, consider longer-acting treatment for the duration of the active insulin., Routine Group 3: ondansetron (ZOFRAN) tablet 4-8 mgJump to med 4-8 mg, Oral, EVERY 8 HOURS PRN, Starting on Mon02/04/19 at 2056, Until Mon02/08/19 at 1530, Nausea, Vomiting, If multiple antiemetics are ordered, use ondansetron first. PO Preferred. If patient unable to take PO, may give IV if ordered. May repeat times one in 45 minutes if ineffective. , Routine Or ondansetron (ZOFRAN) injection 4-8 mgJump to med 4-8 mg, Intravenous, EVERY 8 HOURS PRN, Starting on 02/04/19 at 2056, Until Mon02/08/19 at 1530, Nausea, Start with 4mg and if ineffective in 30 minutes, give an additional 4mg documented in this encounter Care Teams Histology Technician Relationship Specialty Start Date End Date Shirley Yu MD [address] [place] [address] PCP - General 11/19/14 documented as of this encounter
--- OUTSIDE RECORDS SUMMARY | 2023-12-13 18:27 | XMS_ITS | Encounter Summary ---
[place] [address] Care Team Providers Care Medical Administrative Assistant Name Role Phone Shirley Yu MD Primary Care Provider [phone] Encounter Details Date Type Department Care Team (Late st Contact Info) Description 01/04/2019 Orders Only [place] [address] Tavia Adam RN PVD (peripheral vascular disease) with claudication; Pre-op testing; Other disorder of circulatory system Social History Tobacco Use Types Packs/Day Years [...] PM EDT Tech [place] [address] Marguerite Macias 12/19/2023 3:00 PM EDT Office Visit [place] [address] Gardenia Golden APRN [facility] [place] [address] 01/29/2024 1:[address] [place] [address] César Escobar MD [facility] [place] [address] 01/29/2024 2:30 PM EDT Office Visit [place] [address] César Escobar MD [facility] DR THORACIC SURGERY [place], [place] [id number] Scheduled Orders Name Type Priority Associated Diagnoses Orde r Schedule ENDARTERECTOMY, COMMON FEMORAL W OR W/O PATCH GRAFT Procedures Routine One Time for 1 Occurrences starting 01/04/2019 until 01/04/2019 documented as of this encounter Results * EKG 12 Lead (02/04/2019 11:49 AM EDT) Ventricular rate 60 BPM MUSE SYSTEM Atrial Rate 60 BPM MUSE SYSTEM P-R Interval 192 ms MUSE SYSTEM QRS Duration 78 ms MUSE SYSTEM Q-T Interval 432 ms MUSE SYSTEM QTC Calculated (Bezet) 432 ms MUSE SYSTEM Calculated P Hunt[place] 55 degrees MUSE SYSTEM Calculated R [place] 1 degrees MUSE SYSTEM Calculated T Hunt[place] 42 degrees MUSE SYSTEM INTERPRETATION Normal sinus rhythm Normal ECG When compared with ECG of 21-JUN-2018 11:05, No significant change was found Confirmed by MD Remigio, Moose Pagan ([id number]) on 02/05/2019 5:12:01 PM MUSE SYSTEM 02/04/2019 11:4 9 AM EDT 02/05/2019 5:12 PM EDT Kaity Fontaine MD ECG ORDERABLES MUSE SYSTEM * XR Chest One View (02/04/2019 10:19 AM EDT) Anatomical Region Laterality Modality Chest N/A Digital Radiogra phy Impressions 02/04/2019 11:24 AM EDT Improved inflation but some residual opacity in RIGHT midlung zone. No acute cardiopulmonary process. Thank you for letting us participate in the care of this patient. For questions regarding this report, please contact the number below. ? Narrative 02/04/2019 11:24 AM EDT EXAMINATION: XR CHEST ONE VIEW CLINICAL HISTORY: pre-op surgical clearance TECHNIQUE: Standing PA chest COMPARISON: 07/09/2018 FINDINGS: Improved inflation of both lungs near complete clearing of previously seen RIGHT midlung zone opacities. Resolution of previously seen RIGHT pleural effusion. No other interval change. Procedure Note Taz Crowley MD - 02/04/2019 EXAMINATION: XR CHEST ONE VIEW CLINICAL HISTORY: pre-op surgical clearance TECHNIQUE: Standing PA chest COMPARISON: 07/09/2018 FINDINGS: Improved inflation of both lungs near complete clearing of previously seenRIGHT midlung zone opacities. Resolution of previously seen RIGHT pleuraleffusion. No other interval change. IMPRESSION Improved inflation but some residual opacity in RIGHT midlung zone. No acute cardiopulmonary process. Thank you for letting us participate in the care of this patient. Forquestions regarding this report, please contact the number below. Kaity Fontaine MD IMG DX ORDERABLES documented in this encounter Visit Diagnoses Diagnosis PVD (peripheral vascular disease) with claudication Peripheral vascular disease, unspecified Pre-op testing Preoperative examination, unspecified Other disorder of circulatory system PVD (peripheral vascular disease) with claudication Peripheral vascular disease, unspecified Pre-op testing Preoperative examination, unspecified documented in this encounter Care Teams Medical Administrative Assistant Relationship Specialty Start Date End Date Shirley Yu MD [address] [place] [address] PCP - General 11/19/14 documented as of this encounter
--- OUTSIDE RECORDS SUMMARY | 2023-12-13 18:27 | XMS_ITS | Encounter Summary ---
Author Organization [facility] [place] [address] Care Team Providers Care Materials Scheduler Name Role Phone Shirley Yu MD Primary Care Provider [phone] Reason for Visit * Reason Comments NPDR * Consultation (Routine) - Closed Specialty Diagnoses / Procedures Referred By Dominik mcleod Referred To Contact Ophthalmology Diagnoses dm mac edema od Randee, Juany K, OD [address] [place] [address] Bridget Dominguez MD [facility] [place] [address] Referral ID Status Reason Start Date Expiration Date V isits Requested Visits Authorized [id number] Closed Consult, Test & Treat 12/26/2018 12/26/2019 1 1 Encounter Details Date Type Department Care Team (Latest Contact Info) Description 01/29/2019 1:15 PM EDT Office Visit Ophthalmology at [facility] [place] [phone] Bridget Dominguez MD [facility] [place] [address] Proliferative diabetic retinopathy of both eyes without [...] Progress Notes * Bridget Dominguez MD - 01/29/2019 1:15 PM EDT ASSESSMENT/PLAN: 1. 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 PDR s/p PRP OU without DME Today's fundoscopic exam and multimodal imaging show that the retinopathy is inactive proliferativeOU without visually significant macular edema OU Recommended good blood sugar control. The findings communicated to the patient's PCP. Recommended observation with regular eye exams. 2. Pseudophakia OU - monitor Follow up 1yr for DFE/OCT OU Sooner PRN Bridget Dominguez MD, PhD Extended [...] regressed neovascularization C/D Ratio 0.3 0.3 Macula Minimal drusen but no exudate and minimal drusen but no exudate No active edema Vessels Normal Normal Periphery PRP PRP documented in this encounter Plan of Treatment Upcoming Encounters Date Type Department Care Team (Late st Contact Info) Description 12/19/2023 1:00 PM EDT Tech [place] [phone] Marguerite Macias 12/19/2023 3:00 PM EDT Office [place] [address] Gardenia Golden APRN [facility] [place] [address] 01/29/2024 1:[address] [place] [place] [address] César Escobar MD [facility] [place] [address] 01/29/2024 2:30 PM EDT Office [place] [address] César Escobar MD [facility] [place] [address] documented as of this encounter Procedures Procedure Name Priority Date/Time Associated Diagnosis Comments OCT RETINA - OU - BOTH EYES Routine 01/29/2019 3:26 PM EDT 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 Scan locations included subfoveal. Progression has no prior data. Findings include abnormal foveal contour, intraretinal fluid. Left Eye Quality was good. Scan locations included subfoveal. Progression has no prior data. Findings include abnormal foveal contour. 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
--- OUTSIDE RECORDS SUMMARY | 2023-12-13 18:27 | XMS_ITS | Encounter Summary ---
Author Organization Formerly [facility] [place] [address] Care Team Providers Care Hydraulic Assembler Name Role Phone Shirley Yu MD Primary Care Provider [phone] Reason for Visit * Auth/Cert Specialty Diagnoses / Procedures Referred By Dominik mcleod Referred To Contact Diagnoses PVD (peripheral vascular disease) PVD PVD Procedures PRO THROMBOENDARTECTMY FEMORAL COMMON @ENDARTERECTOMY, COMMON FEMORAL W OR W/O PATCH GRAFT (WRVU 15.31) Referral ID Status Reason Start Date Expiration Date Visits Re quested Visits Authorized [id number] 1 1 Encounter Details Date Type Department Care Team (Latest Contact Info) Description 02/04/2019 10:32 AM EDT - 02/08/2019 1:30 PM EDT Hospital Encounter [address] [place] [id number] Jaxon Fontaine MD [facility] [address] PVD (peripheral vascular disease) with claudication; Pre-op testing; PAD (peripheral artery disease) Discharge Disposition: Home Social History Tobacco Use [...] Sign Reading Time Taken Comments Blood Pressure 118/48 02/08/2019 11:27 AM EDT Pulse 59 02/04/2019 9:55 PM EDT Temperature 36.8 ??C (98.2 ??F) 02/08/2019 1 1:27 AM EDT Respiratory Rate 16 02/08/2019 11:2 7 AM EDT Oxygen Saturation 93% 02/08/2019 11: 27 AM EDT Inhaled Oxygen Concentration - - Weight 97.9 kg (215 lb 13.3 oz) 02/06/2019 4:01 AM EDT Height 170.2 cm (5' 7) 02/04/2019 11:3 1 AM EDT Body Mass Index 33.8 02/04/2019 [...] 12:15 PM Bridget Dominguez MD; DILATION AND TESTRUSSELL; TECHRUSSELL Ophthalmology at [facility] Arrive at: Database Development Project Manager Area [phone] The above listed future appointments do not [...] For questions regarding these medications, please contact: [facility] vascular surgery or the patient's primary care doctor Discharge Medications: Your Medications New Medications Dose Details acetaminophen 500 mg Tab Commonly known as: TYLENOL Take 1 tablet by mouth every 4 hours as needed for Pain. 500 mg Quantity: 30 tablet Refills: 1 glucagon 3 mg/actuation [place] 3 mg by Nasal route as needed. [...] Diabetic Supplies, Miscellan. Misc Form faxed to [employer] for pump supplies. Quantity: 100 each Refills: [...] Nonspecific. Please feel free to contact the [facility] vascular surgery department with any questions orconcerns [...] do so by your surgeon. Wound Care: Colma your groin incision with iodine daily. For any problems or questions please call [phone] BREONNA Hou, bone process operator Nurse Clinician For issues on weeknights after 5pm and weekends please call [phone] and ask for the Vascular Fellow transportation director. Shiv Middleton MD 02/08/2019 documented in this [...] do so by your surgeon. Wound Care: Colma your groin incision with iodine daily. For any problems or questions please call [phone] Tamiko Donte, BSN, bone process operator Nurse Clinician For issues on weeknights after 5pm and weekends please call [phone] and ask for the Vascular Fellow transportation director. documented in this encounter Medications at Time [...] TWICE A DAY 98 07/26/2016 Diabetic Supplies, [employer]. Misc Form faxed to [employer] for pump supplies. 100 each 12 03/23/2015 [...] mL 3 02/18/2019 12/01/2023 glucagon 3 mg/actuation [place], Non-Aerosol 3 mg by Nasal route as [...] 1:26 PM EDT Casandra was discharged from [facility]. Her IV was removed. Belongings were gathered. [...] Level 2 carb control Margie Barron APRN [facility] Endocrinology Diabetes Management Pager [phone] minutes of this 20 minute visit [...] dopplerable DP and PT. Labs: Recent Labs 02/06/198 02/05/19 1440 02/05/19 0839 02/05/19 0448 WBC 7.5 8.8 7.4 6.5 HGB 9.5* 10.6* 10.4* 9.9* HCT 31.6* 33.8* 33.8* 32.4* PLATELET 201 223 209 196 Recent Labs 02/06/198 02/05/19 0448 NA 140 141 K 4.5 [...] ASA 81 Shiv Middleton MD 02/06/2019 Pager: [phone] * Janey Madera, RD - 02/05/2019 1:51 [...] high Active Orders Diet Carb Control diet CHO counting level 2 Frequency: Effective Now Number of Occurrences: Until Specified Admit Weight: 96.16 kg Estimated body mass index is 33.2 kg/m?? as calculated from the following: Height as of this encounter: 170.2 cm (5' 7). Weight as of this encounter: 96.2 kg (212 lb). [place] Body Weight (IBW): [place] body weight: 61.6 kg (135 lb 12.9 [...] the last 7068 hours. Last Bowel Movement: (DELI DEPARTMENT MANAGER) Assessment: Patient states she is eating well. I have been carb counting for 45 years. pt declined nutrition questions or concerns. Pt declined need for supplements. Nutrition will follow MARY Lee Beeper #: [id number] * Gerda Taylor RN - 02/05/2019 12:11 [...] ASA 81 Shiv Middleton MD 02/05/2019 Pager: [phone] * Marni Hernandez MD - 02/04/2019 8:50 [...] Marni Hernandez MD Vascular Surgery 02/04/19 * Maebl Diaz RN - 02/04/2019 11:29 AM EDT [...] stent (8x60 SE p7), RLE vein graft DELI DEPARTMENT MANAGER (Dr Avendano) 04/27/18 R REJOINER/proximal graft and distal graft/pop DELI DEPARTMENT MANAGER (6mm and 5mm balloons) (Dr. Fontaine) Active [...] 2.78) performed by César Escobar MD at [facility] MAIN OR ? ? PRO EDG FLEXIBLE TRANSORAL ABLATE TUMOR POLYP/LESION W/DILATION & WIRE N/A 06/22/2016 EGD, TRANSORAL; WITH ABLATION OF TUMOR(S), POLYP(S), OR OTHER LESION(S) (WRVU 4.26) performed by Christos Donald MD at [facility] ENDOSCOPY ??? PRO INJECT NERV BLCK, INTERCOST, MULTPL Right 06/21/2018 NERVE BLOCK, INTERCOSTAL NERVE, MULTIPLE (WRVU 1.68) [facility] ??? PRO THORACOSCOPY WITH THERAPEUTIC WEDGE RESECTION INITIAL UNILAT Right 06/21/2018 @THORACOSCOPY, SURG; W/THERAPEUTIC WEDGE RESECTION, INIT UNILATERAL (WRVU 14.5) performed by César Escobar MD at [facility] MAIN OR ??? PRO TX EXTENSIVE RETINOPATHY, PHOTOCOAGULATION Left 2017 PRP OS - [place], [place] ??? PRO UPPER GI ENDOSCOPY, BIOPSY N/A 10/24/2016 UPPER GASTROINTESTINAL ENDOSCOPY,WITH BIOPSY SINGLE OR MULTIPLE (WRVU 2.49) performed by Agapito Parmar MD at [facility] ENDOSCOPY ??? PRO UPPER GI ENDOSCOPY, DIAGNOSTIC N/A 06/22/2016 EGD, UPPER GI ENDOSCOPY performed by Christos Donald MD at [facility] ENDOSCOPY ??? RETINAL LASER SURGERY Left [...] SFA stents ??? VASCULAR SURGERY 1009 Right REJOINER-AK pop vein graft ??? VS ARTERIOGRAM LOWER EXTREMITY VASCULAR SURGERY 04/27/2018 VS Arteriogram Lower Extremity Vascular Surgery 04/27/2018 Jaxon Fontaine MD [facility] INTERVENTIONL RAD ??? YAG CAPSULOTOMY Bilateral [...] file Gets together: Not on file Attends restorationist service: Not on file Active member of [...] Diabetic Supplies, [employer]. Misc Form faxed to [employer] for pump supplies. 100 each 12 ??? [...] Outcome: Ongoing (Interventions Implemented as Appropriate) 02/06/19 1549 02/06/192201 Coping/Psychosocial Plan Of Care Reviewed With -- [...] risk factors per assessment: [current deficits]: IV's, gordy, generalized weakness Assistance [level of assistance required for transfers and ambulation]: Indpendent Supervision [direct monitoring required during toileting and ADLs]: Eyes on Surveillance [continuous indirect monitoring]: Gordy, hourly rounding Patient-specific fall prevention interventions for sensory deficits provided, if applicable: [X] Yes personal items within reach, clutter free environment, call leggett within reach. CPG GOAL OUTCOME EVALUATION: Goal: Fall Prevention-Safe Patient Handling Outcome: Ongoing (Interventions Implemented as Appropriate) 02/06/19220102/07/19 09 Restraint Interventions Safety Promotion/Fall Prevention -- nonskid [...] Control Outcome: Ongoing (Interventions Implemented as Appropriate) 02/07/19 0942 Coping Strategies Supportive Measures active listening utilized Safety Interventions Isolation Precautions standard precautions maintained Infection Prevention environmental surveillance performed Goal: Discharge Needs Assessment 02/06/19 1549 Discharge Needs Assessment Concerns To Be [...] Independent, eyes on Surveillance [continuous indirect monitoring]: Gordy safety rounding Patient-specific fall prevention interventions for sensory deficits provided, if applicable: N/A CPG GOAL OUTCOME EVALUATION: Patient Vitals for the past 24 hrs: BP Temp Temp src Resp SpO2 02/06/19 2355 161/68 37 ??C (98.6 ??F) Oral 16 93 % 02/06/191999 100/66 37.5 ??C (99.5 ??F) Oral 16 [...] Outcome: Ongoing (Interventions Implemented as Appropriate) 02/06/19 5409 Coping/Psychosocial Plan Of Care Reviewed With patient;significant [...] 2.78) performed by César Escobar MD at [facility] MAIN OR ? ? PRO EDG FLEXIBLE TRANSORAL ABLATE TUMOR POLYP/LESION W/DILATION & WIRE N/A 06/22/2016 EGD, TRANSORAL; WITH ABLATION OF TUMOR(S), POLYP(S), OR OTHER LESION(S) (WRVU 4.26) performed by Christos Donald MD at [facility] ENDOSCOPY ??? PRO INJECT NERV BLCK, INTERCOST, MULTPL Right 06/21/2018 NERVE BLOCK, INTERCOSTAL NERVE, MULTIPLE (WRVU 1.68) performed by César Escobar MD at [facility] OR ??? PRO REOPERATION, BYPASS GRAFT Right 02/04/2019 @RE-OP FOR RE-DO LOWER EXTREMITY BYPASS GRAFT, >1 MONTH P\ ORIGINAL SURGERY, ADD-ON CODE (WRVU 3.08) performed by Jaxon Fontaine MD at [facility] MAIN OR ??? PRO THORACOSCOPY WITH THERAPEUTIC WEDGE RESECTION INITIAL UNILAT Right 06/21/2018 @THORACOSCOPY, SURG; W/THERAPEUTIC WEDGE RESECTION, INIT UNILATERAL (WRVU 14.5) performed by César Escobar MD at [facility] MAIN OR ??? PRO THROMBOENDARTECTMY FEMORAL COMMON Right 02/04/2019 @ENDARTERECTOMY, COMMON FEMORAL W OR W/O PATCH GRAFT (WRVU 15.31) performed by Jaxon Fontaine MD [facility] MAIN OR ??? PRO THROMBOENDARTECTMY FEMORAL DEEP Right 02/04/2019 @ENDARTERECTOMY, PROFUNDAPLASTY, DEEP, PROFUNDA FEMORIS W OR W/O PATCH GRAFT (WRVU 18.58) performedby Jaxon Fontaine MD at [facility] MAIN OR ??? PRO TX EXTENSIVE RETINOPATHY, PHOTOCOAGULATION Left 2017 PRP OS - [place], [place] ??? PRO UPPER GI ENDOSCOPY, BIOPSY N/A 10/24/2016 UPPER GASTROINTESTINAL ENDOSCOPY,WITH BIOPSY SINGLE OR MULTIPLE (WRVU 2.49) performed by Agapito Parmar MD at [facility] ENDOSCOPY ??? PRO UPPER GI ENDOSCOPY, DIAGNOSTIC N/A 06/22/2016 EGD, UPPER GI ENDOSCOPY performed by Christos Donald MD at [facility] ENDOSCOPY ??? RETINAL LASER SURGERY Left [...] SFA stents ??? VASCULAR SURGERY 1009 Right REJOINER-AK pop vein graft ??? VS ARTERIOGRAM LOWER EXTREMITY VASCULAR SURGERY 04/27/2018 VS Arteriogram Lower Extremity Vascular Surgery 04/27/2018 Jaxon Fontaine MD [facility] INTERVENTIONL RAD ??? YAG CAPSULOTOMY Bilateral [...] outlined in this evaluation. Time IN / OUT:7208-6135 Total Evaluation Minutes, Physical Therapy: 25(Eval) Tevin Sullivan PT Pager: [phone] Physical Therapy Inpatient Rehabilitation Department * Initial Assessments - Shantel Palma RN - 02/05/2019 11:39 AM EDT Office of Care Management Initial Assessment Shantel Palma RN reviewed record and discussed patient with Care Team. Source of Information: pt and her boyfriend Tevin Prado [phone] Introduced self/reviewed role; services accepted. Reason for Hospitalization: Redo right femoral endarterectomy with arterial reconstruction ?? HPI: 58 year old diabetic former smoker with a history of PAD. She underwent RLE bypass angioplastyin April. She has persistently elevated velocities in the inflow artery with evidence of a focal dissection on duplex. She now presents for open revision. ?? 2001 L CEA (Dr Fong) 2004 R CEA (Dr Avendano) 2007 R fem-AK-pop bypass with GSV (Dr Avendano) 2012 L EIA stent (8x60 SE p7), RLE vein graft DELI DEPARTMENT MANAGER (Dr Avendano) 04/27/18 R REJOINER/proximal graft and distal graft/pop DELI DEPARTMENT MANAGER (6mm and 5mm balloons) (Dr. Fontaine)Jose Juan [...] Planning: Has written on file.Dtr Benita Queen [phone] then son Arturo Moss [phone] are MPOAs Current Coping/Education/Information Needs: CM explained VNA/SNF/outpt services with payment. Current Functional Ability: SBA Functional Status Prior to Admission: 100%ADL satish/uses CAP at HS/drives self Home Environment: lives in [facility] 2 story, with Bed/bath/kitchen on first floor with 1 step YTD, with boyfriend Tevin Prado Social & Family Supports/Community Resources: Has written AD on file and supportive adult children to assist pt and has boyfriend Tevin to assist as well. Behavioral Health History: denied Substance Use/Abuse: denied Other Pertinent/Service Specific Information: pt adamently refused to accept any VNA or rehab services ,stating that I am very resourceful and do not want any help . Health/Prescription Coverage: Primary Insurance: MEDICARE Secondary Insurance: MEDICAID [place] Prescription Coverage: yes Preferred Pharmacy: [facility] Primary Care Provider: Shirley Yu MD [phone] Patient/Caregiver Goals of Treatment: home with family support Potential Needs for Transition of Care: Rehab/SNF: declined Home Health: declined DME: owns CPAP from [employer] Dialysis: na Community Resources: has [facility] Transportation: family Anticipated Barriers to Discharge/Special Considerations: pt's acceptance of care options offered Assessment: 58yowf in w/ open vascular revision scheduled. Pt a,ox3, has supportive boyfriend Tevinat bedside,. Pt declined all services needed at [place]. CM explained how to contact CM if this changes. CM emailed [facility]yan to update Demo sheet with Tevin Prado name and number Plan: A member of the Care Management team will continue to monitor progress, follow for continuityof care and assist with transition of care planning. Shantel Palma, RN Pager: [phone] * Consult Note - Elsy Barronn LisaLADARIUS - 02/05/2019 11:30 AM EDT Diabetes Management [...] management and to provide a review of termite helper diabetes care. Diabetes History: Jennifer Branch has [...] BG checks at this time. Vera Taylor CASER CDE met with Casandra and her boyfriend Tevin, she taught Tevin how to administer glucagon if needed. Rx for glucagon nasal spray pended for discharge. Plan: 1. {Patient managed Insulin Pump, check POC BG every 4 hours on hospital POC machine. long term diabetes care: Medications - Outpatient treatment regimen recommendations pending based on the hospital course. Monitoring - continue BG tid ac & hs Diet - low fat/low carb diet Exercise - weight-bearing exercise 30 min/day, as tolerated Thank you for allowing us to provide care for your patient Margie Anderson DURAND Endocrinology Pager [phone] minutes of this 80 minute visit was spent with the patient in counseling on diabetes and treatment plan, reviewing all glucose and insulin data as well as relevant laboratory results with the patient, and coordination of care on the inpatient unit * Plan of Care - Althea Sena OT - 02/05/2019 10:44 AM EDT Occupational [...] 2.78) performed by César Escobar MD at [facility] MAIN OR ? ? PRO EDG FLEXIBLE TRANSORAL ABLATE TUMOR POLYP/LESION W/DILATION & WIRE N/A 06/22/2016 EGD, TRANSORAL; WITH ABLATION OF TUMOR(S), POLYP(S), OR OTHER LESION(S) (WRVU 4.26) performed by Christos Donald MD at [facility] ENDOSCOPY ??? PRO INJECT NERV BLCK, INTERCOST, MULTPL Right 06/21/2018 NERVE BLOCK, INTERCOSTAL NERVE, MULTIPLE (WRVU 1.68) [facility] ??? PRO REOPERATION, BYPASS GRAFT Right 02/04/2019 @RE-OP FOR RE-DO LOWER EXTREMITY BYPASS GRAFT, >1 MONTH P\ ORIGINAL SURGERY, ADD-ON CODE (WRVU 3.08) performed by Jaxon Fontaine MD at [facility] MAIN OR ??? PRO THORACOSCOPY WITH THERAPEUTIC WEDGE RESECTION INITIAL UNILAT Right 06/21/2018 @THORACOSCOPY, SURG; W/THERAPEUTIC WEDGE RESECTION, INIT UNILATERAL (WRVU 14.5) performed by César Escobar MD at [facility] MAIN OR ??? PRO THROMBOENDARTECTMY FEMORAL COMMON Right 02/04/2019 @ENDARTERECTOMY, COMMON FEMORAL W OR W/O PATCH GRAFT (WRVU 15.31) performed by Jaxon Fontaine MD [facility] MAIN OR ??? PRO THROMBOENDARTECTMY FEMORAL DEEP Right 02/04/2019 @ENDARTERECTOMY, PROFUNDAPLASTY, DEEP, PROFUNDA FEMORIS W OR W/O PATCH GRAFT (WRVU 18.58) performedby Jaxon Fontaine MD at [facility] MAIN OR ??? PRO TX EXTENSIVE RETINOPATHY, PHOTOCOAGULATION Left 2018 PRP OS - [place], [place] ??? PRO UPPER GI ENDOSCOPY, BIOPSY N/A 10/24/2016 UPPER GASTROINTESTINAL ENDOSCOPY,WITH BIOPSY SINGLE OR MULTIPLE (WRVU 2.49) performed by Agapito Parmar MD at [facility] ENDOSCOPY ??? PRO UPPER GI ENDOSCOPY, DIAGNOSTIC N/A 06/22/2016 EGD, UPPER GI ENDOSCOPY performed by Christos Donald MD at [facility] ENDOSCOPY ??? RETINAL LASER SURGERY Left [...] SFA stents ??? VASCULAR SURGERY 1009 Right REJOINER-AK pop vein graft ??? VS ARTERIOGRAM LOWER EXTREMITY VASCULAR SURGERY 04/27/2018 VS Arteriogram Lower Extremity Vascular Surgery 04/27/2018 Jaxon Fontaine MD [facility] INTERVENTIONL RAD ??? YAG CAPSULOTOMY Bilateral [...] and measurable assessment of functional outcome. Pager: [phone] Althea Sena OT 02/05/2019 Occupational Therapy Rehabilitation [...] will be ready for discharge home to [place]. Plan: - Advance heparin - D/c mazariegos - ISS; f/u diabetes reccs - PT/OT - Carb control diet - Holding home Pradaxa Anticoagulation: IV heparin Antiplatelet: ASA 81 mg po Dispo: floor status, full code Mellisa Teague, MS3 * Op Note - Jose Juan Keith MD - 02/04/2019 5:05 PM EDT [facility] Operative Note Patient Name: Jennifer Branch : 1960 MR#: [id number] Case Date: 02/04/2019 Date of Operation: 02/04/2019. Surgeon(s) and Role: * Jaxon Fontaine MD - Primary * Jose Juan Keith MD - Resident Preoperative Diagnosis: RLE bypass restenosis Postoperative Diagnosis: Severe focal stenosis of the right distal REJOINER and vein bypass anastomosis Procedure: Right external iliac and femoral endarterectomy, revision of proximal vein bypass, with bovine patch angioplasty - redo incision - 22 modifier Right profunda plasty with bovine patch angioplasty Findings: Severe narrowing of the distal REJOINER into the bypass with calcified plaque. We [...] Implant Name Type Inv. Item Serial No. Lactation Specialist Lot No. LRB No. Used Action PATCH,BIOL,XENOSURE,.8X8CM ([id number]) - [id number] IMPLANTS PATCH,BIOL,XENOSURE,.8X8CM ([id number]) [facility]ULAR [facility] [id number] Right 1 Implanted Indications for Procedure: Jennifer [...] made a longitudinal incision over the right REJOINER. We dissected down through the soft tissues withelectrocautery. We identified the inguinal ligament. We then identified the proximal REJOINER. This areawas relatively free of scar. We [...] the smaller looped branches. We opened the REJOINER onto the PFA. We identified a large amount of calcified plaque causing a severe stenosis of the vein bypass. Wewere not able to completely remove the plaque from the proximal vein bypass. We then carried the arteriotomy onto the proximal vein bypass and performed an endarterectomy of the EIA, REJOINER, and PFA. When we were satisfied with [...] bypass side, and carried this onto the REJOINER. Just prior to completing the suture line, [...] PM EDT Tech [place] [phone] Marguerite Macias 12/19/2023 3:00 PM EDT Office [place] [address] Gardenia Golden, LADARIUS [facility] [place] [address] 01/29/2024 1:[address] [place] [address] César Escobar MD [facility] [place] [address] 01/29/2024 2:30 PM EDT Office [place] [phone] César Escobar MD [facility] [place] [address] documented as of this encounter Procedures Procedure [...] 9 12:50 PM EDT Reoperation, Bypass Graft (81215) 02/04/2019 12:01 PM EDT PVD Thromboendartectmy Femoral Deep (62407) 02/04/2019 12:01 PM EDT PVD Thromboendartectmy Femoral Common (82469) 02/04/2019 12:01 PM EDT PVD POCT GLUCOSE [...] * POCT Glucose (02/08/2019 8:18 AM EDT) [facility] Glucose, POC 177 65 - 199 mg/dL [facility] Comment: Supplemental ranges: <140 mg/dL before meals <180 mg/dL all other times of the day Blood specimen (specimen) 02/08/2019 8:18 AM EDT 02/08/2019 8:18 AM EDT Jaxon Fontaine MD POINT OF CARE TEST O RDERABLES [facility] [place] [address] * Unilat Bypass Graft Assess (02/08/2019 7:28 AM EDT) [facility] VB Text Report Department: Vascular Surgery Lab Patient: [id number] (JENNIFER BRANCH) CPT: 31566 ICD10: I73.9 Referring Physician: JAXON FONTAINE MD [...] Text Report Department: Vascular Surgery Lab Patient: [id number] (JENNIFER BRANCH) CPT: 65995 ICD10: I73.9 Referring Physician: JAXON FONTAINE MD [...] 4:21 AM EDT) Neutrophil % 55.0 % [facility] Neutrophil Absolute 4.28 1.70 - 6.10 x10(3)/mc L [facility] Lymph % 28.1 % [facility] Lymphocytes Abs 2.2 0.9 - 3.2 x10(3)/mc L [facility] Monocyte % 9.0 % [facility] Monocyte Abs 0.7 0.3 - 0.9 x10(3)/[facility] Eos % 7.4 % [facility] Eosinophils Abs 0.6(H) 0.0 - 0.4 x10(3)/[facility] Basophil % 0.4 % [facility] Baso Absolute 0.0 0.0 - 0.1 x10(3)/[facility] Immature Gran % 0.10 % [facility] Comment: Immature granulocytes(IG's)percentage and absolute count will include metamyelocytes, myelocytes, and promyelocytes. Blood smears from CBCs yielding IG's will be scanned manually for concordance. If this scan disagrees with the automated IG or if promyelocytes are noted, a manual differential will be performed. Immature Gran Absolute 0.01 0.00 - 0.04 x10(3)/[facility] Blood specimen (specimen) 02/08/2019 4:21 AM EDT 02/08/2019 4:34 AM EDT Narrative Resulting Agency Comment Spec In Lab Jose Juan Keith MD HEMATOLOGY ORDERABLE S Performing Organization Address City/State/[facility] Co de Phone Number [facility] [place] [address] * (ABNORMAL) Hemogram (02/08/2019 4:21 AM EDT) White Blood Cell 7.8 4.0 - 9.5 x10(3)/[facility] Red Blood Cell 2.99(L) 4.00 - 5.21 x10(6)/[facility] Hemoglobin 8.9(L) 11.7 - 15.5 gm/dL [facility] Hematocrit 28.7(L) 35.7 - 45.8 % [facility] Mean Cell Volume 96.0(H) 82.6 - 94.4 fL [facility] Mean Cell Hemoglobin 29.8 27.1 - 32.0 pg [facility] Mean Cell Hemoglobin Concentration 31.0(L) 31.7 - 35.0 gm/dL [facility] Platelet 193 145 - 357 x10(3)/mc L [facility] RDW Standard Deviation 48.2(H) 37.0 - 46.0 fL [facility] RDW coefficient of variation 13.6 11.5 - 14.1 % [facility] Mean Platelet Volume 10.3 7.6 - 12.9 fL [facility] NRBC% auto 0.0 % [facility] NRBC Absolute 0.000 0.000 - 0.000 x10(3)/mc L [facility] Blood specimen (specimen) 02/08/2019 4:21 AM EDT 02/08/2019 4:34 AM EDT Narrative Resulting Agency Comment Spec In Lab Jose Juan Keith MD HEMATOLOGY ORDERABLE S [facility] [place] [address] * (ABNORMAL) Basic Metabolic Panel (non-fasting) (02/08/2019 4:21 AM EDT) Glucose 138 65 - 199 mg/dL [facility] Comment:Diabetes: >=200 mg/d L plus symptoms Blood Urea Nitrogen 23(H) 8 - 18 mg/dL [facility] Creatinine 1.43(H) 0.70 - 1.20 mg/dL [facility] Sodium 142 135 - 145 mmol/L [facility] Potassium 4.3 3.5 - 5.0 mmol/L [facility] [facility] Comment: Please note: ??Patients with WBC >100,000 may have falsely elevated Potassium levels. ??For accurate Potassium quantification in these patients send serum separator tube (gold top) for subsequent determinations. ??Contact the Clinical Chemistry Laboratory if there are any questions. Chloride 107 98 - 107 mmol/L [facility] Carbon Dioxide 24 22 - 31 mmol/L [facility] Anion Gap 11 5 - 15 mmol/L [facility] Calcium 8.8 8.5 - 10.5 mg/dL [facility] Est Glomerular Filtration Rate 40(L) >=60 mL/min/1. 73 m?? [facility] Comment: The eGFR was calculated using the CKD-EPI equation. As with all creatinine based estimates of kidney function, eGFR values calculated with the CKD-EPI equation are not accurate in patients with acute kidney failure, extremes of body mass or the acutely ill. [email or web address] CL[facility]EMOREnkf eGFR 46(L) >=60 mL/min/1. 73 m?? [facility] Comment: The eGFR was calculated using the CKD-EPI equation. As with all creatinine based estimates of kidney function, eGFR values calculated with the CKD-EPI equation are not accurate in patients with acute kidney failure, extremes of body mass or the acutely ill. [email or web address] Blood specimen (specimen) 02/08/2019 4:21 AM EDT 02/08/2019 4:34 AM EDT Narrative Resulting Agency Comment Spec In Lab Jaxon Fontaine MD CHEMISTRY ORDERABLES Performing Organization Address [facility] Phone Number [facility] [place] [address] * POCT Glucose (02/08/2019 4:00 AM EDT) Glucose, POC 148 65 - 199 mg/dL [facility] Comment: Supplemental ranges: <140 mg/dL before meals <180 mg/dL all other times of the day Blood specimen (specimen) 02/08/2019 4:00 AM EDT 02/08/2019 4:00 AM EDT Jaxon Fontaine MD POINT OF CARE TEST O RDERABLES Performing Organization Address [facility]/ZIP Co de Phone Number [facility] [place] [address] * POCT Glucose (02/08/2019 1:08 AM EDT) Glucose, POC 180 65 - 199 mg/dL [facility] Comment: Supplemental ranges: <140 mg/dL before meals <180 mg/dL all other times of the day Blood specimen (specimen) 02/08/2019 1:08 AM EDT 02/08/2019 1:08 AM EDT Jaxon Fontaine MD POINT OF CARE TEST O RDERAJOHN Performing Organization Address [facility] Co de Phone Number [facility] [place] [address] * (ABNORMAL) POCT Glucose (02/07/2019 11:26 PM EDT) Glucose, POC 216(H) 65 - 199 mg/dL [facility] Comment: Supplemental ranges: <140 mg/dL before meals <180 mg/dL all other times of the day Blood specimen (specimen) 02/07/2019 11:26 PM EDT 02/07/2019 11:26 PM EDT Jaxon Fontaine MD POINT OF CARE TEST O RDERAJOHN Performing Organization Address [facility] Co de Phone Number [facility] [place] [address] * (ABNORMAL) POCT Glucose (02/07/2019 7:39 PM EDT) Glucose, POC 264(H) 65 - 199 mg/dL [facility] Comment: Supplemental ranges: <140 mg/dL before meals <180 mg/dL all other times of the day Blood specimen (specimen) 02/07/2019 7:39 PM EDT 02/07/2019 7:39 PM EDT Jaxon Fontaine MD POINT OF CARE TEST O RDERAJOHN Performing Organization Address [facility] Co de Phone Number [facility] [place] [address] * POCT Glucose (02/07/2019 12:18 PM EDT) Glucose, POC 103 65 - 199 mg/dL [facility] Comment: Supplemental ranges: <140 mg/dL before meals <180 mg/dL all other times of the day Blood specimen (specimen) 02/07/2019 12:18 PM EDT 02/07/2019 12:18 PM EDT Jaxon Fontaine MD POINT OF CARE TEST O JODIE Performing Organization Address [facility] Co de Phone Number [facility] [place] [address] * Heparin (unfractionated) Level (02/07/2019 10:57 AM EDT) [facility] UF Heparin 0.67 IU/mL [facility] Comment: Guidelines for therapeutic unfractionated heparin [...] MD HEMATOLOGY ORDERABLE S Performing Organization Address [facility]/ZIP Co de Phone Number [facility] [place] [address] * POCT Glucose (02/07/2019 8:09 AM EDT) [facility] Glucose, POC 140 65 - 199 mg/dL [facility] Comment: Supplemental ranges: <140 mg/dL before meals <180 mg/dL all other times of the day Blood specimen (specimen) 02/07/2019 8:09 AM EDT 02/07/2019 8:09 AM EDT Jaxon Fontaine MD POINT OF CARE TEST O RDERABLES Performing Organization Address [facility] Co de Phone Number [facility] [place] [address] * Heparin (unfractionated) Level (02/07/2019 4:18 AM EDT) [facility] UF Heparin 0.79 IU/mL [facility] Comment: Guidelines for therapeutic unfractionated heparin [...] Lab Jaxon Fontaine MD [place] [address] * (ABNORMAL) Differential, Automated (02/07/2019 4:18 AM EDT) Neutrophil % 47.2 % [facility] Neutrophil Absolute 3.74 1.70 - 6.10 x10(3)/mc L [facility] Lymph % 35.1 % [facility] Lymphocytes Abs 2.8 0.9 - 3.2 x10(3)/ L [facility] Monocyte % 10.1 % [facility] Monocyte Abs 0.8 0.3 - 0.9 x10(3)/mc L [facility] Eos % 6.9 % [facility] Eosinophils Abs 0.6(H) 0.0 - 0.4 x10(3)/mc L [facility] Basophil % 0.4 % [facility] Baso Absolute 0.0 0.0 - 0.1 x10(3)/ L [facility] Immature Gran % 0.30 % [facility] Comment: Immature granulocytes(IG's)percentage and absolute count will include metamyelocytes, myelocytes, and promyelocytes. Blood smears from CBCs yielding IG's will be scanned manually for concordance. If this scan disagrees with the automated IG or if promyelocytes are noted, a manual differential will be performed. Immature Gran Absolute 0.02 0.00 - 0.04 x10(3)/mc L [facility] Blood specimen (specimen) 02/07/2019 4:18 AM EDT 02/07/2019 4:26 AM EDT Narrative Resulting Agency Comment Spec In Lab Jose Juan Keith MD HEMATOLOGY ORDERABLE S [facility] [place] [address] * (ABNORMAL) Hemogram (02/07/2019 4:18 AM EDT) [facility] White Blood Cell 7.9 4.0 - 9.5 x10(3)/mc L [facility] Red Blood Cell 3.22(L) 4.00 - 5.21 x10(6)/[facility] Hemoglobin 9.6(L) 11.7 - 15.5 gm/dL [facility] Hematocrit 31.4(L) 35.7 - 45.8 % [facility] Mean Cell Volume 97.5(H) 82.6 - 94.4 fL [facility] Mean Cell Hemoglobin 29.8 27.1 - 32.0 pg [facility] Mean Cell Hemoglobin Concentration 30.6(L) 31.7 - 35.0 gm/dL [facility] Platelet 199 145 - 357 x10(3)/[facility] RDW Standard Deviation 48.4(H) 37.0 - 46.0 [facility] RDW coefficient of variation 13.5 11.5 - 14.1 % [facility] Mean Platelet Volume 10.4 7.6 - 12.9 [facility] NRBC% auto 0.0 % [facility] NRBC Absolute 0.000 0.000 - 0.000 x10(3)/[facility] Blood specimen (specimen) 02/07/2019 4:18 AM EDT 02/07/2019 4:26 AM EDT Narrative Resulting Agency Comment Spec In Lab Jose Juan Keith MD HEMATOLOGY ORDERABLE S [facility] [place] [address] * (ABNORMAL) Basic Metabolic Panel (non-fasting) (02/07/2019 4:18 AM EDT) [facility] Glucose 121 65 - 199 mg/dL [facility] Comment:Diabetes: >=200 mg/d L plus symptoms Blood Urea Nitrogen 22(H) 8 - 18 mg/dL [facility] Creatinine 1.37(H) 0.70 - 1.20 mg/dL [facility] Sodium 142 135 - 145 mmol/L [facility] Potassium 4.3 3.5 - 5.0 mmol/L [facility] Comment: Please note: ??Patients with WBC >100,000 may have falsely elevated Potassium levels. ??For accurate Potassium quantification in these patients send serum separator tube (gold top) for subsequent determinations. ??Contact the Clinical Chemistry Laboratory if there are any questions. Chloride 107 98 - 107 mmol/L [facility] Carbon Dioxide 23 22 - 31 mmol/L [facility] Anion Gap 12 5 - 15 mmol/L [facility] Calcium 8.8 8.5 - 10.5 mg/dL [facility] Est Glomerular Filtration Rate 42(L) >=60 mL/min/1. 73 m?? [facility] Comment: The eGFR was calculated using the CKD-EPI equation. As with all creatinine based estimates of kidney function, eGFR values calculated with the CKD-EPI equation are not accurate in patients with acute kidney failure, extremes of body mass or the acutely ill. [email or web address] CL[facility]EMOREnkf eGFR 48(L) >=60 mL/min/1. 73 m?? [facility] Comment: The eGFR was calculated using the CKD-EPI equation. As with all creatinine based estimates of kidney function, eGFR values calculated with the CKD-EPI equation are not accurate in patients with acute kidney failure, extremes of body mass or the acutely ill. [email or web address] Blood specimen (specimen) 02/07/2019 4:18 AM EDT 02/07/2019 4:26 AM EDT Narrative Resulting Agency Comment Spec In Lab Jaxon Fontaine MD CHEMISTRY ORDERABLES [facility] [place] [address] * POCT Glucose (02/07/2019 3:41 AM EDT) Glucose, POC 133 65 - 199 mg/dL [facility] Comment: Supplemental ranges: <140 mg/dL before meals <180 mg/dL all other times of the day Blood specimen (specimen) 02/07/2019 3:41 AM EDT 02/07/2019 3:41 AM EDT Jaxon Fontaine MD POINT OF CARE TEST O RDERAJOHN Performing Organization Address [facility] de Phone Number [facility] [place] [address] * POCT Glucose (02/07/2019 12:17 AM EDT) Glucose, POC 159 65 - 199 mg/dL [facility] Comment: Supplemental ranges: <140 mg/dL before meals <180 mg/dL all other times of the day Blood specimen (specimen) 02/07/2019 12:17 AM EDT 02/07/2019 12:17 AM EDT Jaxon Fontaine MD POINT OF CARE TEST O RDERAJOHN Performing Organization Address [facility] de Phone Number [facility] [place] [address] * Heparin (unfractionated) Level (02/06/2019 10:32 PM EDT) UF Heparin 0.68 IU/mL [facility] Comment: Guidelines for therapeutic unfractionated heparin [...] MD HEMATOLOGY ORDERABLE S Performing Organization Address [facility] de Phone Number [facility] [place] [address] * (ABNORMAL) POCT Glucose (02/06/2019 7:55 PM EDT) Glucose, POC 247(H) 65 - 199 mg/dL [facility] Comment: Supplemental ranges: <140 mg/dL before meals <180 mg/dL all other times of the day Blood specimen (specimen) 02/06/2019 7:55 PM EDT 02/06/2019 7:55 PM EDT Jaxon Fontaine MD POINT OF CARE TEST O RDERABLES Performing Organization Address [facility] de Phone Number [facility] [place] [address] * POCT Glucose (02/06/2019 3:14 PM EDT) Glucose, POC 183 65 - 199 mg/dL [facility] Comment: Supplemental ranges: <140 mg/dL before meals <180 mg/dL all other times of the day Blood specimen (specimen) 02/06/2019 3:14 PM EDT 02/06/2019 3:14 PM EDT Jaxon Fontaine MD POINT OF CARE TEST O RDERABLES Performing Organization Address [facility] Co de Phone Number [facility] [place] [address] * Heparin (unfractionated) Level (02/06/2019 3:03 PM EDT) Pathologist [facility] UF Heparin 0.85 IU/mL [facility] Comment: Guidelines for therapeutic unfractionated heparin [...] MD HEMATOLOGY ORDERABLE S Performing Organization Address [facility] Co de Phone Number [facility] [place] [address] * POCT Glucose (02/06/2019 11:09 AM EDT) [facility] Glucose, POC 129 65 - 199 mg/dL [facility] Comment: Supplemental ranges: <140 mg/dL before meals <180 mg/dL all other times of the day Blood specimen (specimen) 02/06/2019 11:09 AM EDT 02/06/2019 11:09 AM EDT Jaxon Fontaine MD POINT OF CARE TEST O RDERAJOHN Performing Organization Address City/[facility]/ZIP Co de Phone Number [facility] [place] [address] * POCT Glucose (02/06/2019 7:36 AM EDT) Glucose, POC 94 65 - 199 mg/dL [facility] Comment: Supplemental ranges: <140 mg/dL before meals <180 mg/dL all other times of the day Blood specimen (specimen) 02/06/2019 7:36 AM EDT 02/06/2019 7:36 AM EDT Jaxon Fontaine MD POINT OF CARE TEST O JODIE Performing Organization Address [facility] Co de Phone Number [facility] [place] [address] * Heparin (unfractionated) Level (02/06/2019 4:38 AM EDT) UF Heparin 0.72 IU/mL [facility] Comment: Guidelines for therapeutic unfractionated heparin [...] MD HEMATOLOGY ORDERABLE S Performing Organization Address City/[facility]/ZIP Co de Phone Number [facility] [place] [address] * (ABNORMAL) Differential, Automated (02/06/2019 4:38 AM EDT) Neutrophil % 54.9 % [facility] Neutrophil Absolute 4.14 1.70 - 6.10 x10(3)/ L [facility] Lymph % 29.8 % [facility] Lymphocytes Abs 2.2 0.9 - 3.2 x10(3)/[facility] Monocyte % 8.2 % [facility] Monocyte Abs 0.6 0.3 - 0.9 x10(3)/[facility] Eos % 6.5 % [facility] Eosinophils Abs 0.5(H) 0.0 - 0.4 x10(3)/[facility] Basophil % 0.3 % [facility] Baso Absolute 0.0 0.0 - 0.1 x10(3)/[facility] Immature Gran % 0.30 % [facility] Comment: Immature granulocytes(IG's)percentage and absolute count will include metamyelocytes, myelocytes, and promyelocytes. Blood smears from CBCs yielding IG's will be scanned manually for concordance. If this scan disagrees with the automated IG or if promyelocytes are noted, a manual differential will be performed. Immature Gran Absolute 0.02 0.00 - 0.04 x10(3)/ L [facility] Blood specimen (specimen) 02/06/2019 4:38 AM EDT 02/06/2019 5:17 AM EDT Narrative Resulting Agency Comment Spec In Lab Jose Juan Keith MD HEMATOLOGY ORDERABLE S [facility] [place] [address] * (ABNORMAL) Hemogram (02/06/2019 4:38 AM EDT) White Blood Cell 7.5 4.0 - 9.5 x10(3)/mc L [facility] Red Blood Cell 3.24(L) 4.00 - 5.21 x10(6)/mc L [facility] Hemoglobin 9.5(L) 11.7 - 15.5 gm/dL [facility] Hematocrit 31.6(L) 35.7 - 45.8 % [facility] Mean Cell Volume 97.5(H) 82.6 - 94.4 fL [facility] Mean Cell Hemoglobin 29.3 27.1 - 32.0 pg [facility] Mean Cell Hemoglobin Concentration 30.1(L) 31.7 - 35.0 gm/dL [facility] Platelet 201 145 - 357 x10(3)/ L [facility] RDW Standard Deviation 49.4(H) 37.0 - 46.0 fL [facility] RDW coefficient of variation 13.6 11.5 - 14.1 % [facility] Mean Platelet Volume 10.6 7.6 - 12.9 fL [facility] NRBC% auto 0.0 % [facility] NRBC Absolute 0.000 0.000 - 0.000 x10(3)/ L [facility] Blood specimen (specimen) 02/06/2019 4:38 AM EDT 02/06/2019 5:17 AM EDT Narrative Resulting Agency Comment Spec In Lab Jose Juan Keith MD HEMATOLOGY ORDERABLE S [facility] [place] [address] * (ABNORMAL) Basic Metabolic Panel (non-fasting) (02/06/2019 4:38 AM EDT) Glucose 142 65 - 199 mg/dL [facility] Comment:Diabetes: >=200 mg/d L plus symptoms Blood Urea Nitrogen 20(H) 8 - 18 mg/dL [facility] Creatinine 1.50(H) 0.70 - 1.20 mg/dL [facility] Sodium 140 135 - 145 mmol/L [facility] Potassium 4.5 3.5 - 5.0 mmol/L [facility] Comment: Please note: ??Patients with WBC >100,000 may have falsely elevated Potassium levels. ??For accurate Potassium quantification in these patients send serum separator tube (gold top) for subsequent determinations. ??Contact the Clinical Chemistry Laboratory if there are any questions. Chloride 106 98 - 107 mmol/L [facility] Carbon Dioxide 25 22 - 31 mmol/L [facility] Anion Gap 9 5 - 15 mmol/L [facility] Calcium 8.3(L) 8.5 - 10.5 mg/dL [facility] Est Glomerular Filtration Rate 37(L) >=60 mL/min/1. 73 m?? [facility] Comment: The eGFR was calculated using the CKD-EPI equation. As with all creatinine based estimates of kidney function, eGFR values calculated with the CKD-EPI equation are not accurate in patients with acute kidney failure, extremes of body mass or the acutely ill. [email or web address] CL[facility]EMOREnkf eGFR 43(L) >=60 mL/min/1. 73 m?? [facility] Comment: The eGFR was calculated using the CKD-EPI equation. As with all creatinine based estimates of kidney function, eGFR values calculated with the CKD-EPI equation are not accurate in patients with acute kidney failure, extremes of body mass or the acutely ill. [email or web address] Blood specimen (specimen) 02/06/2019 4:38 AM EDT 02/06/2019 5:17 AM EDT Narrative Resulting Agency Comment Spec In Lab Jaxon Fontaine MD CHEMISTRY ORDERABLES Performing Organization Address [facility] de Phone Number [facility] [place] [address] * POCT Glucose (02/06/2019 3:41 AM EDT) Glucose, POC 173 65 - 199 mg/dL [facility] Comment: Supplemental ranges: <140 mg/dL before meals <180 mg/dL all other times of the day Blood specimen (specimen) 02/06/2019 3:41 AM EDT 02/06/2019 3:41 AM EDT Jaxon Fontaine MD POINT OF CARE TEST O RDERABLES Performing Organization Address [facility] de Phone Number [facility] [place] [address] * POCT Glucose (02/05/2019 11:19 PM EDT) Glucose, POC 162 65 - 199 mg/dL [facility] Comment: Supplemental ranges: <140 mg/dL before meals <180 mg/dL all other times of the day Blood specimen (specimen) 02/05/2019 11:19 PM EDT 02/05/2019 11:19 PM EDT Jaxon Fontaine MD POINT OF CARE TEST O JODIE Performing Organization Address [facility] de Phone Number [facility] [place] [address] * Heparin (unfractionated) Level (02/05/2019 9:46 PM EDT) UF Heparin 0.82 IU/mL [facility] Comment: Guidelines for therapeutic unfractionated heparin [...] MD HEMATOLOGY ORDERABLE S Performing Organization Address [facility] de Phone Number [facility] [place] [address] * POCT Glucose (02/05/2019 7:30 PM EDT) Glucose, POC 194 65 - 199 mg/dL [facility] Comment: Supplemental ranges: <140 mg/dL before meals <180 mg/dL all other times of the day Blood specimen (specimen) 02/05/2019 7:30 PM EDT 02/05/2019 7:30 PM EDT Jaxon Fontaine MD POINT OF CARE TEST O RDERABLES Performing Organization Address [facility] de Phone Number [facility] [place] [address] * (ABNORMAL) POCT Glucose (02/05/2019 3:06 PM EDT) Glucose, POC 214(H) 65 - 199 mg/dL [facility] Comment: Supplemental ranges: <140 mg/dL before meals <180 mg/dL all other times of the day Blood specimen (specimen) 02/05/2019 3:06 PM EDT 02/05/2019 3:06 PM EDT Jaxon Fontaine MD POINT OF CARE TEST O RDERABLES Performing Organization Address City/[facility]/ZIP Co de Phone Number [facility] [place] [address] * Differential, Automated (02/05/2019 2:40 PM EDT) Neutrophil % 66.8 % [facility] Neutrophil Absolute 5.91 1.70 - 6.10 x10(3)/[facility] LABORAT[facility] Lymph % 21.7 % [facility] Lymphocytes Abs 1.9 0.9 - 3.2 x10(3)/[facility] Monocyte % 6.0 % [facility] Monocyte Abs 0.5 0.3 - 0.9 x10(3)/[facility] Eos % 4.7 % [facility] Eosinophils Abs 0.4 0.0 - 0.4 x10(3)/[facility] Basophil % 0.6 % [facility] Baso Absolute 0.0 0.0 - 0.1 x10(3)/[facility] LAB[facility] Immature Gran % 0.20 % [facility] Comment: Immature granulocytes(IG's)percentage and absolute count will include metamyelocytes, myelocytes, and promyelocytes. Blood smears from CBCs yielding IG's will be scanned manually for concordance. If this scan disagrees with the automated IG or if promyelocytes are noted, a manual differential will be performed. Immature Gran Absolute 0.02 0.00 - 0.04 x10(3)/[facility] Blood specimen (specimen) 02/05/2019 2:40 PM EDT 02/05/2019 3:04 PM EDT Narrative Resulting Agency Comment Spec In Lab Shiv Middleton MD HEMATOLOGY ORDERABLE S Performing Organization Address City/[facility]/ZIP Co de Phone Number [facility] [place] [address] * (ABNORMAL) Hemogram (02/05/2019 2:40 PM EDT) White Blood Cell 8.8 4.0 - 9.5 x10(3)/mc L [facility] Red Blood Cell 3.49(L) 4.00 - 5.21 x10(6)/mc L [facility] Hemoglobin 10.6(L) 11.7 - 15.5 gm/dL [facility] Hematocrit 33.8(L) 35.7 - 45.8 % [facility] Mean Cell Volume 96.8(H) 82.6 - 94.4 fL [facility] Mean Cell Hemoglobin 30.4 27.1 - 32.0 pg [facility] Mean Cell Hemoglobin Concentration 31.4(L) 31.7 - 35.0 gm/dL [facility] Platelet 223 145 - 357 x10(3)/[facility] LABORATORY RDW Standard Deviation 49.5(H) 37.0 - 46.0 [facility] RDW coefficient of variation 13.8 11.5 - 14.1 % [facility] Mean Platelet Volume 10.8 7.6 - 12.9 [facility] NRBC% auto 0.0 % [facility] NRBC Absolute 0.000 0.000 - 0.000 x10(3)/[facility] LABORATORY Blood specimen (specimen) 02/05/2019 2:40 PM EDT 02/05/2019 3:04 PM EDT Narrative Resulting Agency Comment Spec In Lab Shiv Middleton MD HEMATOLOGY ORDERABLE S [facility] [place] [address] * Heparin (unfractionated) Level (02/05/2019 2:40 PM EDT) UF Heparin 0.71 IU/mL [facility] Comment: Guidelines for therapeutic unfractionated heparin [...] MD HEMATOLOGY ORDERABLE S Performing Organization Address [facility] Co de Phone Number [facility] [place] [place] [address] * (ABNORMAL) POCT Glucose (02/05/2019 11:29 AM EDT) Glucose, POC 211(H) 65 - 199 mg/dL [facility] Comment: Supplemental ranges: <140 mg/dL before meals <180 mg/dL all other times of the day Blood specimen (specimen) 02/05/2019 11:29 AM EDT 02/05/2019 11:29 AM EDT Jaxon Fontaine MD POINT OF CARE TEST O RDERABLES Performing Organization Address [facility] Co de Phone Number [facility] [place] [address] * POCT Glucose (02/05/2019 9:48 AM EDT) Glucose, POC 140 65 - 199 mg/dL [facility] Comment: Supplemental ranges: <140 mg/dL before meals <180 mg/dL all other times of the day Blood specimen (specimen) 02/05/2019 9:48 AM EDT 02/05/2019 9:48 AM EDT Jaxon Fontaine MD POINT OF CARE TEST O RDERABLES [facility] [place] [address] * Differential, Automated (02/05/2019 8:39 AM EDT) Neutrophil % 72.6 % [facility] LABORATORY Neutrophil Absolute 5.36 1.70 - 6.10 x10(3)/[facility] LABORATORY Lymph % 16.4 % [facility] LABORATORY Lymphocytes Abs 1.2 0.9 - 3.2 x10(3)/[facility] LABORATORY Monocyte % 6.9 % [facility] LABORATORY Monocyte Abs 0.5 0.3 - 0.9 x10(3)/[facility] LABORATORY Eos % 3.4 % [facility] LABORATORY Eosinophils Abs 0.2 0.0 - 0.4 x10(3)/[facility] LABORATORY Basophil % 0.4 % [facility] Baso Absolute 0.0 0.0 - 0.1 x10(3)/[facility] LABORATORY Immature Gran % 0.30 % [facility] Comment: Immature granulocytes(IG's)percentage and absolute count will include metamyelocytes, myelocytes, and promyelocytes. Blood smears from CBCs yielding IG's will be scanned manually for concordance. If this scan disagrees with the automated IG or if promyelocytes are noted, a manual differential will be performed. Immature Gran Absolute 0.02 0.00 - 0.04 x10(3)/[facility] LABORATORY Blood specimen (specimen) 02/05/2019 8:39 AM EDT 02/05/2019 9:16 AM EDT Narrative Resulting Agency Comment Spec In Lab Shiv Middleton MD HEMATOLOGY ORDERABLE S [facility] [place] [address] * (ABNORMAL) Hemogram (02/05/2019 8:39 AM EDT) White Blood Cell 7.4 4.0 - 9.5 x10(3)/ L [facility] Red Blood Cell 3.46(L) 4.00 - 5.21 x10(6)/mc L [facility] Hemoglobin 10.4(L) 11.7 - 15.5 gm/dL [facility] Hematocrit 33.8(L) 35.7 - 45.8 % [facility] Mean Cell Volume 97.7(H) 82.6 - 94.4 [facility] LABORATORY Mean Cell Hemoglobin 30.1 27.1 - 32.0 [facility] LABORATORY Mean Cell Hemoglobin Concentration 30.8(L) 31.7 - 35.0 gm/dL [facility] Platelet 209 145 - 357 x10(3)/ L [facility] RDW Standard Deviation 49.1(H) 37.0 - 46.0 [facility] LABORATORY RDW coefficient of variation 13.8 11.5 - 14.1 % [facility] Mean Platelet Volume 10.5 7.6 - 12.9 [facility] LABORATORY NRBC% auto 0.0 % [facility] NRBC Absolute 0.000 0.000 - 0.000 x10(3)/ L [facility]OR[facility]ORY Blood specimen (specimen) 02/05/2019 8:39 AM EDT 02/05/2019 9:16 AM EDT Narrative Resulting Agency Comment Spec In Lab Shiv Middleton MD HEMATOLOGY ORDERABLE S [facility] [place] [address] * Heparin (unfractionated) Level (02/05/2019 8:39 AM EDT) Pathologist [facility] UF Heparin 0.06 IU/mL [facility] Comment: Guidelines for therapeutic unfractionated heparin [...] MD HEMATOLOGY ORDERABLE S Performing Organization Address City/State/[facility] Co de Phone Number [facility] [place] [address] * POCT Glucose (02/05/2019 7:30 AM EDT) Pathologist [facility] Glucose, POC 68 65 - 199 mg/dL [facility] Comment: Supplemental ranges: <140 mg/dL before meals <180 mg/dL all other times of the day Blood specimen (specimen) 02/05/2019 7:30 AM EDT 02/05/2019 7:30 AM EDT Jaxon Fontaine MD POINT OF CARE TEST O RDERABLES [facility] [place] [address] * Differential, Automated (02/05/2019 4:48 AM EDT) [facility] Neutrophil % 65.4 % [facility] LABORATORY Neutrophil Absolute 4.28 1.70 - 6.10 x10(3)/[facility] LABORATORY Lymph % 23.4 % [facility] LABORATORY Lymphocytes Abs 1.5 0.9 - 3.2 x10(3)/[facility] LABORATORY Monocyte % 7.2 % [facility] Monocyte Abs 0.5 0.3 - 0.9 x10(3)/[facility] LABORATORY Eos % 3.2 % [facility] LABORATORY Eosinophils Abs 0.2 0.0 - 0.4 x10(3)/[facility] LABORATORY Basophil % 0.5 % [facility] Baso Absolute 0.0 0.0 - 0.1 x10(3)/[facility] LABORATORY Immature Gran % 0.30 % [facility] Comment: Immature granulocytes(IG's)percentage and absolute count will include metamyelocytes, myelocytes, and promyelocytes. Blood smears from CBCs yielding IG's will be scanned manually for concordance. If this scan disagrees with the automated IG or if promyelocytes are noted, a manual differential will be performed. Immature Gran Absolute 0.02 0.00 - 0.04 x10(3)/[facility] LABORATORY Blood specimen (specimen) 02/05/2019 4:48 AM EDT 02/05/2019 4:55 AM EDT Narrative Resulting Agency Comment Spec In Lab Jose Juan Keith MD HEMATOLOGY ORDERABLE S [facility] [place] [address] * (ABNORMAL) Hemogram (02/05/2019 4:48 AM EDT) [facility] White Blood Cell 6.5 4.0 - 9.5 x10(3)/mc L [facility] Red Blood Cell 3.37(L) 4.00 - 5.21 x10(6)/mc L [facility] Hemoglobin 9.9(L) 11.7 - 15.5 gm/dL [facility] Hematocrit 32.4(L) 35.7 - 45.8 % [facility] Mean Cell Volume 96.1(H) 82.6 - 94.4 fL [facility] Mean Cell Hemoglobin 29.4 27.1 - 32.0 pg [facility] Mean Cell Hemoglobin Concentration 30.6(L) 31.7 - 35.0 gm/dL [facility] Platelet 196 145 - 357 x10(3)/[facility] LABORATORY RDW Standard Deviation 49.0(H) 37.0 - 46.0 [facility] LABORATORY RDW coefficient of variation 13.7 11.5 - 14.1 % [facility] Mean Platelet Volume 9.8 7.6 - 12.9 [facility] LABORATORY NRBC% auto 0.0 % [facility] NRBC Absolute 0.000 0.000 - 0.000 x10(3)/ L [facility] Blood specimen (specimen) 02/05/2019 4:48 AM EDT 02/05/2019 4:55 AM EDT Narrative Resulting Agency Comment Spec In Lab Jose Juan Keith MD HEMATOLOGY ORDERABLE S [facility] [place] [address] * (ABNORMAL) Basic Metabolic Panel (non-fasting) (02/05/2019 4:48 AM EDT) Pathologist [facility] Glucose 98 65 - 199 mg/dL [facility] Comment:Diabetes: >=200 mg/d L plus symptoms Blood Urea Nitrogen 23(H) 8 - 18 mg/dL [facility] Creatinine 1.41(H) 0.70 - 1.20 mg/dL [facility] Sodium 141 135 - 145 mmol/L [facility] Potassium 4.2 3.5 - 5.0 mmol/L [facility] Comment: Please note: ??Patients with WBC >100,000 may have falsely elevated Potassium levels. ??For accurate Potassium quantification in these patients send serum separator tube (gold top) for subsequent determinations. ??Contact the Clinical Chemistry Laboratory if there are any questions. Chloride 109(H) 98 - 107 mmol/L [facility] Carbon Dioxide 25 22 - 31 mmol/L [facility] Anion Gap 7 5 - 15 mmol/L [facility] Calcium 8.0(L) 8.5 - 10.5 mg/dL [facility] Est Glomerular Filtration Rate 40(L) >=60 mL/min/1. 73 m?? [facility] Comment: The eGFR was calculated using the CKD-EPI equation. As with all creatinine based estimates of kidney function, eGFR values calculated with the CKD-EPI equation are not accurate in patients with acute kidney failure, extremes of body mass or the acutely ill. [email or web address]/DHMCnkf eGFR 47(L) >=60 mL/min/1. 73 m?? [facility] Comment: The eGFR was calculated using the CKD-EPI equation. As with all creatinine based estimates of kidney function, eGFR values calculated with the CKD-EPI equation are not accurate in patients with acute kidney failure, extremes of body mass or the acutely ill. [email or web address] Blood specimen (specimen) 02/05/2019 4:48 AM EDT 02/05/2019 4:55 AM EDT Narrative Resulting Agency Comment Spec In Lab Jaxon Fontaine MD CHEMISTRY ORDERABLES [facility] [place] [address] * POCT Glucose (02/05/2019 4:42 AM EDT) Glucose, POC 109 65 - 199 mg/dL [facility] Comment: Supplemental ranges: <140 mg/dL before meals <180 mg/dL all other times of the day Blood specimen (specimen) 02/05/2019 4:42 AM EDT 02/05/2019 4:42 AM EDT Jaxon Fontaine MD POINT OF CARE TEST O RDERAJOHN [facility] [place] [address] * POCT Glucose (02/05/2019 12:27 AM EDT) Glucose, POC 179 65 - 199 mg/dL [facility] Comment: Supplemental ranges: <140 mg/dL before meals <180 mg/dL all other times of the day Blood specimen (specimen) 02/05/2019 12:27 AM EDT 02/05/2019 12:27 AM EDT Jaxon Fontaine MD POINT OF CARE TEST O JODIE Performing Organization Address [facility] Co de Phone Number [facility] [place] [address] * POCT Glucose (02/04/2019 8:46 PM EDT) Glucose, POC 145 65 - 199 mg/dL [facility] Comment: Supplemental ranges: <140 mg/dL before meals <180 mg/dL all other times of the day Blood specimen (specimen) 02/04/2019 8:46 PM EDT 02/04/2019 8:46 PM EDT Jaxon Fontaine MD POINT OF CARE TEST O ALEXERAJOHN Performing Organization Address City/[facility]/ZIP Co de Phone Number [facility] [place] [address] * POCT Glucose (02/04/2019 7:11 PM EDT) Glucose, POC 67 65 - 199 mg/dL [facility] Comment: Supplemental ranges: <140 mg/dL before meals <180 mg/dL all other times of the day Blood specimen (specimen) 02/04/2019 7:11 PM EDT 02/04/2019 7:11 PM EDT Jaxon Fontaine MD POINT OF CARE TEST O JODIE Performing Organization Address [facility] de Phone Number [facility] [place] [address] * POCT Glucose (02/04/2019 5:11 PM EDT) Glucose, POC 99 65 - 199 mg/dL [facility] Comment: Supplemental ranges: <140 mg/dL before meals <180 mg/dL all other times of the day Blood specimen (specimen) 02/04/2019 5:11 PM EDT 02/04/2019 5:11 PM EDT Jaxon Fontaine MD POINT OF CARE TEST O JODIE Performing Organization Address [facility] de Phone Number [facility] [place] [place] [address] * (ABNORMAL) BLOOD GAS 2 ARTERIAL (02/04/2019 3:26 PM EDT) pH, Arterial 7.35 7.35 - 7.45 [facility] PCO2, Arterial 39 35 - 45 mmHg [facility] PO2, Arterial 82(L) 85 - 104 mmHg [facility] Bicarbonate, Arterial 21.3 20.0 - 26.0 mmol/L [facility] Base Excess, Arterial -4.6(L) -3.0 - 3.0 mmol/L [facility] Hgb Blood Gas 11.6(L) 11.7 - 15.5 gm/dL [facility] Oxyhemoglobin, Arterial 93.1(L) 94.0 - 97.0 % [facility] Carboxyhemoglob in, Arterial 3.2 % [facility] Comment: Nonsmokers: 0.5-1.5% COHB Smokers: Variable, but usually less than 10% Toxic: 20-30% COHB Lethal: Greater than 60% COHB Methemoglobin, Arterial 0.3 <=1.5 % [facility] Na Whole Blood 138 135 - 145 mmol/L [facility] K Whole Blood 4.5 3.5 - 5.0 mmol/L [facility] Comment: Please note: Patients with WBC >100,000 may have falsely elevated Potassium levels. Contact the Clinical Chemistry Laboratory if there are any questions. ICa Whole Blood 1.15 1.15 - 1.33 mmol/L [facility] Comment: Note: ??Total bilirubin higher than 20 mg/dL may lead to falsely low ionized calcium. CL Whole Blood 109(H) 98 - 107 mmol/L [facility] Gluc Whole Bld 123 65 - 199 mg/dL [facility] Comment:Diabetes: >=200 mg/d L plus symptoms. Lactate WB 1.0 0.5 - 2.2 mmol/L [facility] FIO2 Art 39 % [facility] PF Ratio Art 210 [facility] Temp Art 35.9 Celsius [facility] Blood specimen (specimen) 02/04/2019 3:26 PM EDT 02/04/2019 3:26 PM EDT Jaxon Fontaine MD POINT OF CARE TEST O RDERABLES [facility] [place] [address] * (ABNORMAL) BLOOD GAS 2 ARTERIAL (02/04/2019 2:22 PM EDT) pH, Arterial 7.33(L) 7.35 - 7.45 [facility] PCO2, Arterial 42 35 - 45 mmHg [facility] PO2, Arterial 229(H) 85 - 104 mmHg [facility] Bicarbonate, Arterial 22.0 20.0 - 26.0 mmol/L [facility] Base Excess, Arterial -4.2(L) -3.0 - 3.0 mmol/L [facility] Hgb Blood Gas 11.8 11.7 - 15.5 gm/dL [facility] Oxyhemoglobin, Arterial 95.2 94.0 - 97.0 % [facility] Carboxyhemoglob in, Arterial 3.7 % [facility] Comment: Nonsmokers: 0.5-1.5% COHB Smokers: Variable, but usually less than 10% Toxic: 20-30% COHB Lethal: Greater than 60% COHB Methemoglobin, Arterial 0.3 <=1.5 % [facility] Na Whole Blood 137 135 - 145 mmol/L [facility] K Whole Blood 4.5 3.5 - 5.0 mmol/L [facility] Comment: Please note: Patients with WBC >100,000 may have falsely elevated Potassium levels. Contact the Clinical Chemistry Laboratory if there are any questions. ICa Whole Blood 1.14(L) 1.15 - 1.33 mmol/L [facility] Comment: Note: ??Total bilirubin higher than 20 mg/dL may lead to falsely low ionized calcium. CL Whole Blood 109(H) 98 - 107 mmol/L [facility] Gluc Whole Bld 125 65 - 199 mg/dL [facility] Comment:Diabetes: >=200 mg/d L plus symptoms. Lactate WB 1.2 0.5 - 2.2 mmol/L [facility] FIO2 Art 72 % [facility] PF Ratio Art 318 [facility] Temp Art 35.5 Celsius [facility] Blood specimen (specimen) 02/04/2019 2:22 PM EDT 02/04/2019 2:22 PM EDT Jaxon Fontaine MD POINT OF CARE TEST O RDERABLES [facility] [place] [address] * (ABNORMAL) BLOOD GAS 2 ARTERIAL (02/04/2019 12:50 PM EDT) pH, Arterial 7.36 7.35 - 7.45 [facility] PCO2, Arterial 37 35 - 45 mmHg [facility] PO2, Arterial 91 85 - 104 mmHg [facility] Bicarbonate, Arterial 20.6 20.0 - 26.0 mmol/L [facility] Base Excess, Arterial -5.2(L) -3.0 - 3.0 mmol/L [facility] Hgb Blood Gas 12.0 11.7 - 15.5 gm/dL [facility] Oxyhemoglobin, Arterial 93.5(L) 94.0 - 97.0 % [facility] Carboxyhemoglob in, Arterial 3.8 % [facility] Comment: Nonsmokers: 0.5-1.5% COHB Smokers: Variable, but usually less than 10% Toxic: 20-30% COHB Lethal: Greater than 60% COHB Methemoglobin, Arterial 0.3 <=1.5 % [facility] Na Whole Blood 139 135 - 145 mmol/L [facility] K Whole Blood 4.4 3.5 - 5.0 mmol/L [facility] Comment: Please note: Patients with WBC >100,000 may have falsely elevated Potassium levels. Contact the Clinical Chemistry Laboratory if there are any questions. ICa Whole Blood 1.15 1.15 - 1.33 mmol/L [facility] Comment: Note: ??Total bilirubin higher than 20 mg/dL may lead to falsely low ionized calcium. CL Whole Blood 108(H) 98 - 107 mmol/L [facility] Gluc Whole Bld 140 65 - 199 mg/dL [facility] Comment:Diabetes: >=200 mg/d L plus symptoms. Lactate WB 0.9 0.5 - 2.2 mmol/L [facility] FIO2 Art 50 % [facility] PF Ratio Art 182 [facility] Temp Art 35.4 Celsius [facility] Blood specimen (specimen) Arterial Draw / Unknown 02/04/2019 12:50 PM EDT 02/04/2019 12:50 PM EDT Narrative Resulting Agency Comment Spec In Lab Jaxon Fontaine MD POINT OF CARE TEST O RDERAJOHN Performing Organization Address City/[facility] Co de Phone Number [facility] [place] [address] * POCT Glucose (02/04/2019 11:56 AM EDT) Glucose, POC 137 65 - 199 mg/dL [facility] Comment: Supplemental ranges: <140 mg/dL before meals <180 mg/dL all other times of the day Blood specimen (specimen) 02/04/2019 11:56 AM EDT 02/04/2019 11:56 AM EDT Jaxon Fontaine MD POINT OF CARE TEST O JODIE Performing Organization Address [facility] Co de Phone Number [facility] [place] [address] * EKG 12 Lead (02/04/2019 11:49 AM EDT) Ventricular rate 60 BPM MUSE SYSTEM Atrial Rate 60 BPM MUSE SYSTEM P-R Interval 192 ms MUSE SYSTEM QRS Duration 78 ms MUSE SYSTEM Q-T Interval 432 ms MUSE SYSTEM QTC Calculated (Bezet) 432 ms MUSE SYSTEM Calculated P [place] 55 degrees MUSE SYSTEM Calculated R [place] 1 degrees MUSE SYSTEM Calculated T [place] 42 degrees MUSE SYSTEM INTERPRETATION Normal sinus rhythm Normal ECG When compared with ECG of 21-JUN-2018 11:05, No significant change was found Confirmed by MD Flood Gregory A. ([id number]) on 02/05/2019 5:12:01 PM MUSE SYSTEM 02/04/2019 11:4 9 AM EDT 02/05/2019 5:12 PM EDT Jaxon Fontaine MD ECG ORDERABLES MUSE SYSTEM * ABORH Recheck Status (02/04/2019 10:45 AM EDT) ABORH Type Recheck Completed [facility] Blood specimen (specimen) 02/04/2019 10:45 AM EDT 02/04/2019 10:47 AM EDT Narrative Resulting Agency Comment Spec In Lab Jaxon Fontaine MD BLOOD BANK LAB ORDER FELIX [facility] [place] [address] * Antibody screen (02/04/2019 10:45 AM EDT) Ab Screen Interp Negative [facility] Expires at [id number] on: 02/07/2019 [facility] Blood specimen (specimen) 02/04/2019 10:45 AM EDT 02/04/2019 10:47 AM EDT Narrative Resulting Agency Comment Spec In Lab Jaxon Fontaine MD BLOOD BANK LAB ORDER FELIX [facility] [place] [address] * ABO/Rh Typing (02/04/2019 10:45 AM EDT) ABORH Type A Neg [facility] Blood specimen (specimen) 02/04/2019 10:45 AM EDT 02/04/2019 10:47 AM EDT Narrative Resulting Agency Comment Spec In Lab Jaxon Fontaine MD BLOOD BANK LAB ORDER FELIX [facility] [place] [address] documented in this encounter Visit Diagnoses Diagnosis PVD (peripheral vascular disease) with claudication Peripheral vascular disease, unspecified Pre-op testing Preoperative examination, unspecified PAD (peripheral artery disease) Peripheral vascular disease, unspecified PVD (peripheral vascular disease) Peripheral vascular disease, unspecified Type 1 diabetes Groin hematoma Contusion of abdominal wall documented in this encounter Admitting Diagnoses Diagnosis PVD (peripheral vascular disease) Peripheral vascular disease, unspecified documented in this encounter Administered Medications Inactive Administered Medications - up to 3 most recent administrations Medication Order MAR Action Action Date Dose Rate Site acetaminophen (TYLENOL) tablet 1,000 mg 1,000 mg, Oral, ONCE, 1 dose, On Mon02/04/19 at 1145, Administer with SIP of H2O only., Day of Surgery (Day of Procedure), Routine Given 02/04/2019 11:58 AM EDT 1,000 mg acetaminophen (TYLENOL) tablet 500 mg 500 mg, [...] Given 02/07/2019 9:42 AM EDT 20 mg clindamycin (CLEOCIN) 900mg in dextrose 5% 50mL 900 mg, Intravenous, EVERY 8 HOURS, 2 doses, First dose on Mon02/04/19 at 2000, Last dose on Mon02/05/19 at 0400, Administer over 30 Minutes, Give over 30-60 minutes. Do not exceed 30mg/minute. Redose after 4 hours., Recovery (Recovery-Hospital Unit), Indication for (Active or Suspected): Prophylaxis New Bag 02/05/2019 3:40 AM EDT 900 mg 100 mL/ hr New Bag 02/04/2019 7:59 PM EDT 900 mg 100 mL/hr dextrose 10% infusion 250 mL, Intravenous, EVERY [...] insulin. glucagon (human recombinant) injection SolR 1 mg [...] Given 02/08/2019 9:11 AM EDT 5,000 Units heparin 25,000 units in sodium chloride 0.45% 500 mL infusion 500 Units/hr (10 mL/hr), Intravenous, CONTINUOUS, Starting on Mon02/04/19 at 2115, Until Mon02/05/19 at 0807, No titration, Routine New Bag 02/04/2019 9:20 PM EDT 500 Units/hr 10 mL/hr heparin 25,000 units in sodium chloride 0.45% 500 mL infusion 0-5,000 Units/hr (0-100 mL/hr), Intravenous, CONTINUOUS, Starting on Mon02/05/19 at 0830, Until Mon02/05/19 at 1408, Begin infusion at 1,450 units per hr [...] - Per Protocol, Routine, Indication: Arterial Thrombosis Rate/Dose Change 02/05/2019 8:30 AM EDT 1,450 Units/hr 29 mL/hr heparin 25,000 units in sodium chloride 0.45% 500 mL infusion 0-5,000 Units/hr (0-100 mL/hr), Intravenous, CONTINUOUS, Starting [...] - Per Protocol, Routine, Indication: Arterial Thrombosis Rate/Dose Change 02/06/2019 5:51 AM EDT 1,150 Units/hr 23 mL/hr New Bag 02/05/2019 10:26 PM EDT 1,250 Units/hr 25 mL/hr Rate/Dose Change 02/05/2019 3:45 PM EDT 1,350 Units/hr 27 mL/hr heparin 25,000 units in sodium chloride 0.45% 500 mL infusion 0-5,000 Units/hr (0-100 mL/hr), Intravenous, CONTINUOUS, Starting [...] - Per Protocol, Routine, Indication: Arterial Thrombosis Rate/Dose Verify 02/07/2019 12:16 PM EDT 1,250 Units/hr 25 mL/hr New Bag 02/07/2019 11:19 AM EDT 1,250 Units/hr 25 mL/hr Rate/Dose Change 02/07/2019 4:48 AM EDT 1,250 Units/hr 25 mL/hr HYDROmorphone (DILAUDID) injection 0.2 mg 0.2 mg, Intravenous, ONCE, 1 dose, On M[place] 02/07/19 at 0415, Routine Given 02/07/2019 4:50 AM EDT 0.2 mg insulin lispro (HumaLOG) VIAL injection 2-8 Units 2-8 Units, Subcutaneous, EVERY 4 HOURS SCHEDULED, First dose on Mon02/04/19 at 1745, Until Discontinued, CORRECTION BOLUS Moderate BG 140 - 160 Give 2 units BG 161 - 200 Give 4 units BG 201 - 240 Give 6 units BG greater than 240, give 8 units and recheck BG in 2 hours. If less than 240 after two hours, give no insulin and resume prior schedule. If BG remains greater than 240, repeat 8 units (no more than three times) & call for new basal insulin orders. DO NOT hold if NPO, unless specifically told to do so., Routine Given 02/05/2019 12:00 AM EDT 1.1 Units Given 02/04/2019 9:23 PM EDT 2 Units INSULIN PUMP (PATIENT OWN) Subcutaneous, ONCE [...] Pump Bolus (Units))., Medication Name: aspart (Novolog) lactated ringers infusion 1,000 mL, at 100 mL/hr, Intravenous, CONTINUOUS, Starting on Mon02/04/19 at 1145, Until Mon02/04/19 at 1721, Day of Surgery (Day of Procedure) New Bag 02/04/2019 11:53 AM EDT 1,000 mLs 100 mL/hr levothyroxine (SYNTHROID) tablet 125 mcg 125 mcg, [...] 1339, Until Mon02/08/19 at 1530, Congestion, Routine sodium chloride 0.9% infusion 1,000 mL, at 100 mL/hr, Intravenous, CONTINUOUS, Starting on Mon02/04/19 at 1745, Until Mon02/05/19 at 0728, Recovery (Recovery-Hospital Unit) New Bag 02/05/2019 3:32 AM EDT 1,000 mLs 100 mL /hr New Bag 02/04/2019 5:28 PM EDT 1,000 mLs 100 mL/hr documented in this encounter Active and [...] Greene RN) 0943 (Given - Provider: Yue Lee, TAMEKA)1645 (Given - Provider: Yue Lee RN) 0910 [...] Discontinued, Routine 0911 (Given - Provider: Yue Lee, TAMEKA) HYDROmorphone (DILAUDID) injection 0.2 mg (COMPLETED) 0.2 mg, Intravenous, ONCE, 1 dose, On Mese[place] 02/07/19 at 0415, Routine 0450 (Given - Provider: Nathaly Sánchez, TAMEKA) levothyroxine (SYNTHROID) tablet 125 mcg 125 mcg, Oral, EVERY MORNING, First dose on Mon02/05/19 at 0600, Until Discontinued, Routine 0549 (Given - Provider: Miracle Blanco RN) 0645 (Given - Provider: Nathaly Sánchez, TAMEKA) 0609 (Given - Provider: Mandy Ron RN) [...] Greene RN) 0942 (Given - Provider: Yue Lee, TAMEKA) 0910 (Given - Provider: Yue Lee RN) simvastatin (ZOCOR) tablet 40 mg 40 mg, [...] Thrombosis 0551 (Rate/Dose Change - Provider: Miracle lBanco RN) heparin 25,000 units in sodium chloride [...] from all sources in 24 hours., Routine 2201 (Given - Provider: Cassy Jordan RN) 0000 (Given - Provider: Mandy Ron RN)0319 (Given - Provider: Rosa Coreas RN)1317 (Given - Provider: Nakia Cruz RN)4033 (Given - Provider: Mandy Ron, RN) 0438 (Given - Provider: Mandy Ron, RN) dextrose 10% infusion(Linked Group 2) 250 [...] mg., Routine 0355 (Given - Provider: Nathaly Sáncehz RN)1317 (Given - Provider: Nakia Cruz RN)1704 (Given - Provider: Nakia Cruz RN)2102 (Given - Provider: Mandy Ron RN) sodium [...] 4mg documented in this encounter 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
--- OUTSIDE RECORDS SUMMARY | 2023-12-13 18:27 | XMS_ITS | Encounter Summary ---
[place] [address] Care Team Providers Care Family Practice Physician Assistant Name Role Phone Shirley Yu MD Primary Care Provider [phone] Reason for Visit * Auth/Cert Specialty Diagnoses / Procedures Referred By Dominik mcleod Referred To Contact Diagnoses PVD (peripheral vascular disease) PVD PVD Procedures PRO THROMBOENDARTECTMY FEMORAL COMMON @ENDARTERECTOMY, COMMON FEMORAL W OR W/O PATCH GRAFT (WRVU 15.31) Referral ID Status Reason Start Date Expiration Date Visits Re quested Visits Authorized [id number] 1 1 Encounter Details Date Type Department Care Team (Late st Contact Info) Description 02/04/2019 11:58 AM EDT Anesthesia [place] [id number] Mat Dee MD [facility] [place] [address] Cheng Rueda DO [facility] [place] [address] Anesthesia Record Procedure Summary Procedure Name Responsible Anesthesiologist Anesthesia Start Time Anesthesia Stop Time @ENDARTERECTOMY, COMMON FEMORAL W OR W/O PATCH GRAFT (WRVU 15.31) (Right: Groin) Mat Dee MD 02/04/19 1158 02/04/19 1712 Events Date Time Event Comment 02/04/2019 1143 1158 Start 1202 AN Verify 1202 An Start Data 1213 An Induction 1216 An Intubation 1226 Anesthesia Ready 1247 ABG Data Arterial Blood Gas result: pH 7.33 KEC412.4 OK1174.3 %O2 Sat 99 FiO50.0 HCO20.6 BE -5.2 Hb 12.0 K 4.35 Glucose 140 Lactate 0.92 1250 Break/Relief In Bianka bray, HANGERSMITH 1252 Procedure Start 1414 Heparin 1418 Vascular Clamp ON 1422 ABG Data Arterial Blood Gas result: pH 7.308 pCO2 45 pO2 236.5 %O2 Sat 99 FiO2 72 HCO3 22 BE -4.2 Hb 11.8 K 4.53 Glucose 125 Lactate 1.24 1446 Heparin 1459 Break/Relief In Macario Duenas MD 1515 Break/Relief Out 1526 ABG Data Arterial Blood Gas result: pH 7.333 pCO2 41 pO2 88.3 %O2 Sat 97 FiO2 39 HCO3 21.3 BE -4.6 Hb 11.6 K 4.52 Glucose 123 Lactate 0.97 1527 Heparin 1558 Vascular Clamp OFF 1600 Protamine 1703 Extubation/LMA Out 1705 an stop data 1712 Recovery or ICU Handoff Deidre ent care was transferred to the destination unit staff after review of the patient's medical history, current anesthetic/surgical status and plan, according to the Provider Handoff Checklist. 1712 Stop Meds Name Total Midazolam 1 mg fentaNYL 100 mcg IV Lidocaine 100 mg Propofol 310 mg Propofol INF 965.85 mg Rocuronium 100 mg ePHEDrine 10 mg Heparin 8,000 Units Protamine 20 mg Ondansetron 8 mg Neostigmine 4 mg Glycopyrrolate 0.6 mg clindamycin (CLEOCIN) 900mg in dextrose 5% 50mL 900 mg PHENYLephrine INF 2,350 mcg HYDROmorphone 1 mg lactated ringers infusion 500 mL Lactated Ringers 1,000 mL * Agents Name O2 Air N2O Sevoflurane (et) * Blood No blood administrations on file. Lines, Drains, and Airways Type Details Placement Removal (RETIRED) Peripheral IV Line - Single Lumen 03/19/18; 918; median cubital vein (antecubital fossa), left; 18 gauge; 02/04/19; 1147 03/19/18 0919 by Yue Kevin RN 02/04/19 1147 by Mabel Diaz RN Incision 04/27/18; 1252; axel n; laparoscopic puncture; RLE angiogram; 02/04/19; 1146 04/27/18 1252 by Randa Portillo RN 02/04/19 1146 by Mabel Diaz RN Incision 06/21/18; 1211; gregor k; laparoscopic punctures (specify); 02/04/19; 1146 06/21/18 1211 by Clint Garcia RN 02/04/19 1146 by Mabel Diaz RN (RETIRED) Peripheral IV Line - Single Lumen 02/04/19; 1147; median cubital vein (antecubital fossa), right; imrm-lpl-wibstb catheter system; 20 gauge, 1 in length; Cheryle Bolton; distraction, tolerated well, appears comfortable; 1; median cubital vein (antecubital fossa), left; no longer indicated; 02/06/19; 1100 02/04/19 1147 by Mabel Diaz RN 02/06/19 1100 by Lulu Greene RN (RETIRED) Peripheral IV Line - Single Lumen 02/04/19; 1152; median cubital vein (antecubital fossa), right; ywuu-feu-[id number] catheter system; 20 gauge, 1 in length; Cheryle RN; 1; 02/05/19; 1102 02/04/19 1152 by Mabel Diaz RN 02/05/19 1102 by Mandy Ron, RN ETT Mask Ventilation: Ad junct (2); ETT Type: Cuffed, Oral; ETT Size: 7 mm; Mac Blade: 4; Notes: Asleep, Pre-O2, Stylette; Attempts: 1; Laryngoscopy Grade: 1; ETT Placement Verified By: Auscultation, Capnometry, Visual; Secured at Teeth: 23 cm; Inserted by: Mohit; Removal Date: 02/04/19; Removal Time: 1703 02/04/19 1216 by Cheng Rueda DO 02/04/19 1703 by Cheng Rueda DO (RETIRED) Peripheral IV Line - Single Lumen 02/04/19; 1225; metacarpal vein (top of hand), right; ubgl-nfb-[id number] catheter system; 18 gauge; Cho; 02/21/19; 1632 02/04/19 1225 by Cheng Rueda DO 02/21/19 1632 by Vinay Celeste RN Arterial Line 02/04/19; 1234; radi al artery, left; 20 gauge; Mohit; Sterile Prep, Sterile Gloves; no longer indicated, removed per policy, catheter intact; 02/04/19; 1845 02/04/19 1234 by Cheng Rueda DO 02/04/19 1845 by Nilam Fernandez RN Urethral Catheter 02/04/19; 1237; Phys ician order, Surgery longer than 2 hours, Need for intraoperative urine output monitoring; Physician order, Prolonged Immobilization; indwelling double lumen catheter; latex; 14; inserted at this facility; 1; 10; 10; none; drainage bag to dependent drainage; 02/05/19; 0839 02/04/19 1237 by Ava Flynn RN 02/05/19 0839 by Mandy Ron RN Incision 02/04/19; 1253; groi n; vertical; 12/06/21 (LDA cleanup utility RA#[id number]); 1715 (LDA cleanup utility RA#[id number]) 02/04/19 1253 by Ava Flynn RN 12/06/21 1715 by Nuris Chacko documented [...] OR Notes * Anesthesia Postprocedure Evaluation - Cheng Rueda - 02/04/2019 5:14 PM EDT Department of Anesthesiology Post-procedure Note Patient: Jennifer Snyder Procedure Summary Date: 02/04/19 Room / Location: [facility] OR [address] [place] [address] MAIN OR Anesthesia Start: 1158 Anesthesia Stop: 1712 Procedures: @ENDARTERECTOMY, COMMON FEMORAL W OR W/O PATCH GRAFT (WRVU 15.31) (Right Groin) @ENDARTERECTOMY, PROFUNDAPLASTY, DEEP, PROFUNDA FEMORIS W OR W/O PATCH GRAFT (WRVU 18.58) (Right Groin) @RE-OP FOR RE-DO LOWER EXTREMITY BYPASS GRAFT, >1 MONTH P\ ORIGINAL SURGERY, ADD-ON CODE (WRVU 3.08) (Right Groin) Diagnosis: (PVD) Surgeon: Kaity Fontaine MD Responsible Provider: Mat Dee MD Anesthesia Type: general ASA Status: 3 All Anesthesia Providers: Anesthesiologist: Mat Dee MD; Macario Cho MD Visual And Stock Associate: Cheng Rueda DO Vitals Value Taken Time BP Temp Pulse 61 02/04/2019 5:13 PM Resp 15 02/04/2019 5:13 PM SpO2 99 % 02/04/2019 5:13 PM Pain Level Vitals shown include unvalidated device data. Patient Location: PACU/[facility] Level of Consciousness: Conscious but Sleepy Pain Management: Satisfactory Analgesia PONV: None Cardiovascular Status: At Baseline and Hemodynamically Stable Respiratory Status: At Baseline and Supplemental O2 (NC or FM) Postoperative Fluid Status: Intravascular EUvolemia Possible Anesthetic Complications: NONE apparent at time of evaluation Final Primary Anesthesia Type: General (The anesthetic type performed was the same as planned.) Comments: No obvious pain or nausea at this time. Cheng Rueda DO * Anesthesia Preprocedure Evaluation - Macario Cho MD - 02/03/2019 1:42 PM EDT Pre-Anesthesia Evaluation for: Jennifer Snyder a 58 y.o. female. Procedure(s): @ENDARTERECTOMY, COMMON FEMORAL W OR W/O PATCH GRAFT (WRVU 15.31) Patient Active Problem List Diagnosis ??? PVD (peripheral vascular disease) ??? Lung nodule ??? Proliferative diabetic retinopathy of left eye ??? Obesity ??? Hypertension ??? Hyperlipidemia ??? Sleep apnea ??? Hypothyroidism ??? Depression ??? PDR (proliferative diabetic retinopathy) ??? Intermittent claudication ??? PAD (peripheral artery disease) ??? 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 Carotid stenosis ??? Hyperkeratosis palmaris et plantaris Past Medical History: Diagnosis Date ??? Allergy [...] 2.78) performed by César Escobar MD at [facility] MAIN OR ? ? PRO EDG FLEXIBLE TRANSORAL ABLATE TUMOR POLYP/LESION W/DILATION & WIRE N/A 06/22/2016 EGD, TRANSORAL; WITH ABLATION OF TUMOR(S), POLYP(S), OR OTHER LESION(S) (WRVU 4.26) performed by Christos Donald MD at [facility] ENDOSCOPY ??? PRO INJECT NERV BLCK, INTERCOST, MULTPL Right 06/21/2018 NERVE BLOCK, INTERCOSTAL NERVE, MULTIPLE (WRVU 1.68) performed [facility] ??? PRO THORACOSCOPY WITH THERAPEUTIC WEDGE RESECTION INITIAL UNILAT Right 06/21/2018 @THORACOSCOPY, SURG; W/THERAPEUTIC WEDGE RESECTION, INIT UNILATERAL (WRVU 14.5) performed by César Escobar MD at [facility] MAIN OR ??? PRO TX EXTENSIVE RETINOPATHY, PHOTOCOAGULATION Left 2017 PRP OS - [place], [place] ??? PRO UPPER GI ENDOSCOPY, BIOPSY N/A 10/24/2016 UPPER GASTROINTESTINAL ENDOSCOPY,WITH BIOPSY SINGLE OR MULTIPLE (WRVU 2.49) performed by Agapito Parmar MD at [facility] ENDOSCOPY ??? PRO UPPER GI ENDOSCOPY, DIAGNOSTIC N/A 06/22/2016 EGD, UPPER GI ENDOSCOPY performed by Christos Donald MD at [facility] ENDOSCOPY ??? RETINAL LASER SURGERY [...] SFA stents ??? VASCULAR SURGERY 1009 Right DIRECTIONAL BORE OPERATOR-AK pop vein graft ??? VS ARTERIOGRAM LOWER EXTREMITY VASCULAR SURGERY 04/27/2018 VS Arteriogram Lower Extremity Vascular Surgery 04/27/2018 Kaity Fontaine MD [facility] INTERVENTIONL RAD ??? 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 Medications: ASA, carvedilol, cilostazol, citalopram, dabigatran, levothyroxine, insulin, losartan,pantoprazole, simvastatin Anesthetic hx: No reported prior complications with anesthesia Airway hx: prior grade 1 view with Mac 3 06/2018: sinus bradycardia ECHO: none PFTs: 04/2018: isolated reduction in diffusing capacity. FVC 96% FEV1 91% FEV1/FVC 94% DSB 62% Lab Results Component Value Date HGB 11.2 (L) 06/23/2018 PLATELET 214 06/23/2018 NA 142 06/24/2018 K 4.1 06/24/2018 CREATININE 1.75 (H) 06/24/2018 06/04/18 1347 ABORH A Neg Allergies: -- Sulfa (Sulfonamide Antibiotics) -- Renal failure, bleeding -- Pcn (Penicillins) -- Unknown NPO Status: Appropriate Anesthetic Plan: GA with ETT Standard ASA monitoring + arterial line Perioperative glucose monitoring Adequate IV access Cheng Rueda DO Pager: [phone] Patient seen and evaluated. Risks and benefits discussed. Appropriately NPO. No recent URI. BG in 70s this am. Pt typically symptomatic in 60s. Will continue insulin pump with close intraoperative monitoring. Macario Cho MD Region - Other Informed Consent: Anesthetic plan and risks discussed with patient. Use of blood products discussed with patient who consented to blood products. Plan discussed with attending and resident. PAT Clinic Note documented in this encounter Plan of Treatment Upcoming Encounters Date Type Department Care Team (Late st Contact Info) Description 12/19/2023 1:00 PM EDT Tech [place] [address] Marguerite Macias 12/19/2023 3:00 PM EDT Office Visit [place] [address] Gardenia Golden, TRANSITION SOCIAL WORKER [facility] [place] [address] 01/29/2024 1:[address] [place] [address] César Escobar MD [facility] [place] [address] 01/29/2024 2:30 PM EDT Office Visit [place] [address] César Escobar MD [facility] [address] THORACIC SURGERY [place], [place] [id number] documented as of this encounter Visit Diagnoses Not on filedocumented in this encounter Administered Medications Inactive Administered Medications - up to 3 most recent administrations Medication Order MAR Action Action Date Dose Rate Site clindamycin (CLEOCIN) 900mg in dextrose 5% 50mL 900 mg, Intravenous, ONCE, 1 dose, On Mon02/04/19 at 1145, Administer over 30 Minutes, Give over 30-60 minutes. Do not exceed 30mg/minute. Redose every 6 hours if CrCl is greater than 20. Redose every 6 hours if CrCl is less than 20., Day of Surgery (Day of Procedure), Indication for (Active or Suspected): Prophylaxis Given 02/04/2019 12:26 PM EDT 900 mg ePHEDrine 5 mg/mL multi-dose injection PRN, Starting on Mon02/04/19 at 1426, Until Mon02/04/19 at 1713, Anesthesia Intra-op, Routine Given 02/04/2019 4:06 PM EDT 5 mg Given 02/04/2019 2:26 PM EDT 5 mg fentaNYL 50 mcg/mL multi-dose injection PRN, Starting on Mon02/04/19 at 1212, Until Mon02/04/19 at 1713, Anesthesia Intra-op, Routine Given 02/04/2019 2:11 PM EDT 50 mcg Given 02/04/2019 12:12 PM EDT 50 mcg glycopyrrolate (ROBINUL) multi-dose injection PRN, Starting on Mon02/04/19 at 1623, Until Mon02/04/19 at 1713, Anesthesia Intra-op, Routine Given 02/04/2019 4:23 PM EDT 0.6 mg heparin (porcine) injection PRN, Starting on Mon02/04/19 at 1414, Until Mon02/04/19 at 1713, Anesthesia Intra-op, Routine Given 02/04/2019 3:27 PM EDT 1,000 Units Given 02/04/2019 2:46 PM EDT 1,000 Units Given 02/04/2019 2:14 PM EDT 6,000 Units HYDROmorphone (DILAUDID) injection PRN, Starting on Mon02/04/19 at 1520, Until Mon02/04/19 at 1713, Anesthesia Intra-op, Routine Given 02/04/2019 4:42 PM EDT 0.2 mg Given 02/04/2019 4:09 PM EDT 0.2 mg Given 02/04/2019 4:04 PM EDT 0.2 mg lactated ringers infusion CONTINUOUS PRN, Starting on Mon02/04/19 at 1226, Until Mon02/04/19 at 1713, Anesthesia Intra-op New Bag 02/04/2019 12:26 PM EDT lidocaine (PF) (XYLOCAINE) 100 mg/5 mL (2 %) injection PRN, Starting on Mon02/04/19 at 1213, Until Mon02/04/19 at 1713, Anesthesia Intra-op, Routine Given 02/04/2019 12:13 PM EDT 100 mg midazolam (PF) (VERSED) multi-dose injection PRN, Starting on Mon02/04/19 at 1158, Until Mon02/04/19 at 1713, Anesthesia Intra-op, Routine Given 02/04/2019 11:58 AM EDT 1 mg neostigmine (BLOXIVERZ) injection PRN, Starting on Mon02/04/19 at 1623, Until Mon02/04/19 at 1713, Anesthesia Intra-op, Routine Given 02/04/2019 4:23 PM EDT 4 mg ondansetron (ZOFRAN) injection PRN, Starting on Mon02/04/19 at 1518, Until Mon02/04/19 at 1713, Anesthesia Intra-op, Routine Given 02/04/2019 4:09 PM EDT 4 mg Given 02/04/2019 3:18 PM EDT 4 mg PHENYLephrine (ADELA-SYNEPHRINE) 20 mg in sodium chloride 250 mL (standard ADULT & Pedi greater than 20kg) infusion CONTINUOUS PRN, Starting on Mon02/04/19 at 1326, Until Mon02/04/19 at 1713, Anesthesia Intra-op, Routine Rate/Dose Change 02/04/2019 3:12 PM EDT 20 mcg/min 15 mL/hr Restarted 02/04/2019 2:38 PM EDT 10 mcg/min 7.5 mL/hr Restarted 02/04/2019 2:23 PM EDT 10 mcg/min 7.5 mL/hr propofol (DIPRIVAN) 10 mg/mL bolus injection (Anesthesia) PRN, Starting on Mon02/04/19 at 1213, Until Mon02/04/19 at 1713, Anesthesia Intra-op Given 02/04/2019 4:55 PM EDT 10 mg Given 02/04/2019 4:51 PM EDT 20 mg Given 02/04/2019 4:40 PM EDT 20 mg propofol (DIPRIVAN) infusion CONTINUOUS PRN, Starting on Mon02/04/19 at 1220, Until Mon02/04/19 at 1713, Anesthesia Intra-op, Routine Rate/Dose Change 02/04/2019 3:00 PM EDT 30 mcg/kg/min 17.3 mL/hr New Bag 02/04/2019 12:20 PM EDT 50 mcg/kg/min 28.9 mL/h r protamine injection PRN, Starting on Mon02/04/19 at 1600, Until Mon02/04/19 at 1713, Anesthesia Intra-op, Routine Given 02/04/2019 4:00 PM EDT 20 mg rocuronium (ZEMURON) multi-dose injection PRN, Starting on Mon02/04/19 at 1215, Until Mon02/04/19 at 1713, Anesthesia Intra-op, Routine Given 02/04/2019 12:15 PM EDT 100 mg documented in this encounter Care Teams Family Practice Physician Assistant Relationship Specialty Start Date End Date Shirley Yu MD [address] [place] [address] PCP - General 11/19/14 documented as of this encounter
--- OUTSIDE RECORDS SUMMARY | 2023-12-13 18:27 | XMS_ITS | Encounter Summary ---
Author Organization [facility] Address [facility] [place] [address] Care Team Providers Care Cook Seafood Name Role Phone Shirley Yu MD Primary Care Provider [phone] Reason for Visit * Auth/Cert Specialty Diagnoses / Procedures Referred By Dominik mcleod Referred To Contact Diagnoses PVD (peripheral vascular disease) PVD PVD Procedures PRO THROMBOENDARTECTMY FEMORAL COMMON @ENDARTERECTOMY, COMMON FEMORAL W OR W/O PATCH GRAFT (WRVU 15.31) Referral ID Status Reason Start Date Expiration Date Visits Re quested Visits Authorized [id number] 1 1 Encounter Details Date Type Department Care Team (Latest Contact Info) Description 02/04/2019 10:12 AM EDT - 02/04/2019 10:31 AM EDT Hospital Encounter XRay at [address] [place] [address] Kaity Fontaine MD [facility] [place] [address] PVD (peripheral vascular disease) with claudication; Pre-op testing Discharge Disposition: Home Social History Tobacco Use [...] TWICE A DAY 98 07/26/2016 Diabetic Supplies, Octavian. Misc Form faxed to [employer] for pump supplies. 100 each 12 03/23/2015 [...] mL 3 02/18/2019 12/01/2023 glucagon 3 mg/actuation [place], Non-Aerosol 3 mg by Nasal route as [...] mouth 2 times daily (with meals). 04/21/2022 dabigatran (PRADAXA) 150 mg Capsule Take 1 capsule by mouth 2 times daily. 180 capsule 3 08/24/2015 02/08/2019 Magnesium 250 mg Tab Take by mouth daily. 022 documented as of this encounter Plan of Treatment Upcoming Encounters Date Type Department Care Team (Late st Contact Info) Description 12/19/2023 1:00 PM EDT Tech [place] [phone] Marguerite Macias 12/19/2023 3:00 PM EDT Office [place] [address] Gardenia Golden, LADARIUS [facility] [place] [place] [address] 01/29/2024 1:[address] [place] [phone] César Escobar MD [facility] [place] [address] 01/29/2024 2:30 PM EDT Office [place] [phone] César Escobar MD [facility] [place] [address] documented as of this encounter Procedures Procedure Name Priority Date/Time Associated Diagnosis Comments XR CHEST ONE VIEW Routine 02/04/2019 10: 19 AM EDT PVD (peripheral vascular disease) with claudication Pre-op testing documented in this encounter Results * XR Chest One View (02/04/2019 10:19 [...] unspecified documented in this encounter Care Teams Cook Seafood Relationship Specialty Start Date End Date Shirley Yu MD [address] [place] [address] PCP - General 11/19/14 documented as of this encounter
--- OUTSIDE RECORDS SUMMARY | 2023-12-13 18:28 | XMS_ITS | Encounter Summary ---
[place] [address] Care Team Providers Care Sales And Management Trainee Name Role Phone Shirley Yu MD Primary Care Provider [phone] Reason for Visit * Reason Onset Date Comments Other 06/11/2018 regarding Pletal plan to hold Encounter Details Date Type Department Care Team (Late st Contact Info) Description 06/11/2018 Telephone [place] [address] Kayla Poe, RN Other (regarding Pletal plan to hold) Social History Tobacco Use Types Packs/Day Years [...] encounter Miscellaneous Notes * Telephone Encounter - Kayla Poe RN - 06/11/2018 3:47 PM EST TC to Casandra regarding when to hold Pletal. Unable to leave a message for Casandra as unidentifiable answering machine. Will attempt to call back tomorrow 06/12/18. documented in this encounter Plan of Treatment Upcoming Encounters Date Type Department Care Team (Late st Contact Info) Description 12/19/2023 1:00 PM EDT Tech Visit Vascular Lab at [place] [phone] Marguerite Macias 12/19/2023 3:00 PM EDT Office [place] [address] Gardenia Golden, LADARIUS [facility] [place] [address] 01/29/2024 1:[address] [place] [address] César Escobar MD [facility] [place] [place] [address] 01/29/2024 2:30 PM EDT Office [place] [address] César Escobar MD [facility] DR [place] [address] documented as of this encounter Visit Diagnoses Not on filedocumented in this encounter Care Teams Sales And Management Trainee Relationship Specialty Start Date End Date Shirley Yu MD [address] [place] [address] PCP - General 11/19/14 documented as of this encounter
--- OUTSIDE RECORDS SUMMARY | 2023-12-13 18:28 | XMS_ITS | Encounter Summary ---
[place] [address] Care Team Providers Care Fast Food Sales Assistant Name Role Phone Shirley Yu MD Primary Care Provider [phone] Reason for Visit * Auth/Cert Specialty Diagnoses / Procedures Referred By Dominik mcleod Referred To Contact Diagnoses Lung nodule lung nodule Procedures PRO THORACOSCOPY SURG LOBECTOMY PRO BRONCHOSCOPY, DIAGNOSTIC @THORACOSCOPY,SURGICAL,W\LOBECTOMY, TOTAL OR SEGMENTAL (WRVU 24.64) BRONCHOSCOPY, DIAGNOSTIC (WRVU 2.78) Referral ID Status Reason Start Date Expiration Date Visits Re quested Visits Authorized [id number] 1 1 Encounter Details Date Type Department Care Team (Late st Contact Info) Description 06/21/2018 11:37 AM EDT Anesthesia Event [place] [id number] Regino Mayer MD [facility] [place] [address] Moose Galicia MD [facility] [place] [address] Anesthesia Record Procedure Summary Procedure Name Responsible Anesthesiologist Anesthesia Start Time Anesthesia Stop Time BRONCHOSCOPY, DIAGNOSTIC (WRVU 2.53) (Chest) Regino Mayer MD 06/21/18 1137 06/21/18 1411 Events Date Time Event Comment 06/21/2018 1130 1137 AN Verify 1137 Start 1137 An Start Data 1144 An Induction 1150 An Intubation 1151 FO Bronchoscopy 1155 Anesthesia Ready 1205 An one lung vent TERRELL positio n confirmed on bronch. Left-lung ventilation 1234 An Dual Lung Vent SpO2 dropp ing to 85% on OLV despite manual recruitment on 100% O2. Discussed with surgeon, OK to resume 2-lung vent, SpO2 improved quickly to 99% with manual recruitment. 1237 An one lung vent 1243 Quick Note Manual recruitm ent 1246 An Dual Lung Vent Desat to 8 3% despite manual recruitment, discussed with surgeon, DLV resumed with quick recovery. 1249 FO Bronchoscopy Bronch by an esthesiologist, TERRELL position confirmed, minimal secretions cleared from L bronchial lumen. 1250 An one lung vent 1308 An Dual Lung Vent 1311 An one lung vent 1332 An Dual Lung Vent 1358 Extubation/LMA Out 1358 an stop data 1411 Recovery or ICU Handoff Deidre ent care was transferred to the destination unit staff after review of the patient's medical history, current anesthetic/surgical status and plan, according to the Provider Handoff Checklist. 1411 Stop Meds Name Total Midazolam 1 mg fentaNYL 200 mcg Propofol 200 mg Rocuronium 70 mg Ondansetron 4 mg Neostigmine 4 mg Glycopyrrolate 0.6 mg cefTRIAXone (ROCEPHIN) 2 g v ial attach to sodium chloride 0.9% 50 mL Mini-Bag Plus 2 g Propofol INF 504 mg insulin lispro (HumaLOG) VIAL injection 2-8 Units 5 Units lactated ringers infusion 700 mL * Agents Name O2 Air N2O Sevoflurane (et) * Blood No blood administrations on file. Lines, Drains, and Airways Type Details Placement Removal (RETIRED) Peripheral IV Line - Single Lumen 03/19/18; 918; median cubital vein (antecubital fossa), left; 18 gauge; 02/04/19; 1147 03/19/18 0919 by Yue Kevin RN 02/04/19 1147 by Mabel Diaz RN Incision 04/27/18; 1252; groi n; laparoscopic puncture; RLE angiogram; 02/04/19; 1146 04/27/18 1252 by Randa Portillo RN 02/04/19 1146 by Mabel Diaz, RN (RETIRED) Peripheral IV Line - Single Lumen 06/21/18; 1100; cephalic vein (lateral side of arm), right; [id number]-sqg-[id number] catheter system; 1 in length, 20 gauge; Damon O. anesthesia; intradermal injection, tolerated well; 2; metacarpal vein (top of hand), left, median cubital vein (antecubital fossa), left (Yogi); no longer indicated, removed per policy/procedure, catheter/device intact, site care per policy/procedure; 06/24/18; 1030 06/21/18 1100 by Lynn Conner RN 06/24/18 1030 by Josee Martínez, TAMEKA ETT Mask Ventilation: Adjunct (2); ETT Type: Cuffed, Oral; Double Lumen: 37 Fr; Mac Blade: 3; Notes: Asleep, Pre-O2, Stylette; Attempts: 1; Laryngoscopy Grade: 1; ETT Placement Verified By: Auscultation, Capnometry, Visual; Inserted by: Frida; Removal Date: 06/21/18; Removal Time: 1358 06/21/18 1155 by Moose Galicia 06/21/18 1358 by Moose Galicia (RETIRED) Peripheral IV Line - Single Lumen 06/21/18; 1203; metacarpal vein (top of hand), left; clag-wkk-dnlkpl catheter system; 18 gauge; no longer indicated, removed per policy/procedure, catheter/device intact, site care per policy/procedure; 06/24/18; 1030 06/21/18 1203 by Moose Galicia 06/24/18 1030 by Josee Martínez RN Incision 06/21/18; 1211; gregor k; laparoscopic punctures (specify); 02/04/19; 1146 06/21/18 1211 by Clint Garcia RN 02/04/19 1146 by Mabel Diaz RN Chest Tube 06/21/18; 1339; Righ t; lateral; 28inch ; 06/22/18; 1230 06/21/18 1339 by Nena Canchola RN 06/22/18 1230 by Fabiana Eli RN documented in this encounter Social History Tobacco [...] OR Notes * Anesthesia Postprocedure Evaluation - Regino Mayer MD - 06/21/2018 3:54 PM EDT [facility] Department of Anesthesiology Post-procedure Note Patient: Jennifer Snyder Procedure Summary Date: 06/21/18 Room / Location: [facility] OR [address] [place] [address] MAIN OR Anesthesia Start: 1137 Anesthesia Stop: 141 Procedures: BRONCHOSCOPY, DIAGNOSTIC (WRVU 2.78) (N/A Chest) NERVE BLOCK, INTERCOSTAL NERVE, MULTIPLE (WRVU 1.68) (Right ) @THORACOSCOPY, SURG; W/THERAPEUTIC WEDGE RESECTION, INIT UNILATERAL (WRVU 14.5) (Right Chest) Diagnosis: Right lower lobe pulmonary nodule (lung nodule) Surgeon: César Escobar MD Responsible Provider: Regino Mayer MD Anesthesia Type: general ASA Status: 3 All Anesthesia Providers: Anesthesiologist: Regino Mayer MD Online Merchandising Manager: Moose Galicia MD Vitals Value Taken Time BP 130/70 06/21/2018 3:30 PM Temp 36.1 ??C (97 ??F) 06/21/2018 2:02 PM Pulse 51 06/21/2018 3:52 PM Resp 13 06/21/2018 3:52 PM SpO2 95 % 06/21/2018 3:52 PM Pain Level 0 06/21/2018 3:30 PM Vitals shown include unvalidated device data. Patient Location: PACU/[facility] Level of Consciousness: Awake and Alert Pain Management: Satisfactory Analgesia PONV: None Cardiovascular Status: At Baseline and Hemodynamically Stable Respiratory Status: Supplemental O2 (NC or FM) Postoperative Fluid Status: Intravascular EUvolemia Possible Anesthetic Complications: NONE apparent at time of evaluation Final Primary Anesthesia Type: General (The anesthetic type performed was the same as planned.) Comments: Regino Mayer MD * Anesthesia Preprocedure Evaluation - Regino Mayer MD - 06/20/2018 5:32 PM EDT Pre-Anesthesia Evaluation for: Jennifer Snyder a 57 y.o. female. Procedure(s): @THORACOSCOPY,SURGICAL,W\LOBECTOMY,TOTAL OR SEGMENTAL (WRVU 24.64) BRONCHOSCOPY, DIAGNOSTIC (WRVU 2.78) Patient Active Problem List Diagnosis ??? Lung nodule ??? Proliferative diabetic [...] Diagnosis Date ??? Allergy Sulfa, Penicillin ??? Antiplatelet or antithrombotic long-term use on [...] ??? CATARACT EXTRACTION, EXTRACAPSULAR, W/ LENS INSERTION 06/2013 TAMEKA - Dr Szymanski ? ? PRO EDG FLEXIBLE TRANSORAL ABLATE TUMOR POLYP/LESION W/DILATION & WIRE N/A 06/22/2016 EGD, TRANSORAL; WITH ABLATION OF TUMOR(S), POLYP(S), OR OTHER LESION(S) (WRVU 4.26) performed by Christos Donald MD at [facility] ENDOSCOPY ??? PRO UPPER GI ENDOSCOPY, BIOPSY N/A 10/24/2016 UPPER GASTROINTESTINAL ENDOSCOPY,WITH BIOPSY SINGLE OR MULTIPLE (WRVU 2.49) performed by Agapito Parmar MD at [facility] ENDOSCOPY ??? PRO UPPER GI ENDOSCOPY, DIAGNOSTIC N/A 06/22/2016 EGD, UPPER GI ENDOSCOPY performed by Christos Donald MD at [facility] ENDOSCOPY ??? RETINAL LASER SURGERY Left 01/20/2012 [...] SFA stents ??? VASCULAR SURGERY 1009 Right WIRE PHOTO OPERATOR-AK pop vein graft ??? VS ARTERIOGRAM LOWER EXTREMITY VASCULAR SURGERY 04/27/2018 VS Arteriogram Lower Extremity Vascular Surgery 04/27/2018 Kaity Fontaine MD [facility] INTERVENTIONL RAD ??? YAG CAPSULOTOMY Right 02/27/15 YAG CAP OD - Nessa Social History Tobacco Use ??? Smoking status: Former Smoker Packs/day: 0.50 Years: 30.00 Pack years: 15.00 Types: Cigarettes Last attempt to quit: 08/14/2014 Years since quittin.8 ??? Smokeless tobacco: Never Used ??? Tobacco [...] file to calculate BMI. Airway Assessment: Mallampati: II TM distance: >3 FB Neck ROM: full Cardiovascular Assessment: Pulmonary Assessment: Dental Assessment: - normal exam Misc Assessment: Anesthesia Plan: ASA 3 general, with a(n) intravenous induction This is a 57 y.o. female here for thoracoscopy with right wedge resection, possible RL lobectomy inthe setting of bilateral lung nodules and hx of melanoma. 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 No available cardiac imaging or EKG in EDH PFT 04/23/18 FVC 96% FEV1 91% FEV1/FVC 94% DSB 62% Carotid U/S 01/05/18 right common with 30-35% stenosis right internal <15%, Left common 35-40% Left internal 50-69% Allergies: -- Sulfa (Sulfonamide Antibiotics) -- Other (See Comments) -- Renal failure, bleeding -- Pcn (Penicillins) -- Unknown Anesthetic History: Prior MAC tolerated without adverse event for endoscopy Anesthetic Plan: GA with DLETT Arterial line LBPIVx2 Moose Galicia MD 06/20/2018 Attending Assessment: Patient personally seen and examined. 57yo F with b/l lung nodules presenting for right thoracoscopy with right wedge resection, possibleRL lobectomy PMH notable for: melanoma - COPD - PAD(s/p 2007 R fem-AK-pop bypass with GSV; 2012 L EIA stent; 04/27/18 R WIRE PHOTO OPERATOR/proximal graft and distal graft/pop GENERAL SCIENCE TEACHER) prescribed dabigatran pletal - carotid stenosis s/p CEA left 2000 right 2004. Denies any symptoms of CVA/TIA/dizziness/syncope - IDDM - MANISH on CPAP (setting of 14 per patient) - HTN on coreg, cozaar - hypothyroidism PFT 04/23/18 FVC 96% FEV1 91% FEV1/FVC 94% DSB 62% Carotid U/S 01/05/18 right common with 30-35% stenosis right internal <15%, Left common 35-40% Left internal 50-69% No recent URI. Well-controlled GERD on PPI (asymptomatic in preop). No problems with anesthesia in the past. Meds: reviewed EKG: reviewed NPO status adequate Plan: - preop Tylenol - standard ASA monitors, PIV x2, +/- arterial line - GA with L TERRELL - perioperative glucose monitoring - Dabigatran held for 3 days - potential CPAP in recovery unit (patient brought home CPAP) The patient was informed of the risks, benefits and alternatives of anesthesia. These risks included, but were not limited to, post-operative nausea and/or vomiting, pain, sore throat, dental/lip injury, and other rare but serious complications such as cardiac instability/arrest, neurologic event, awareness, severe allergic reactions, position-related nerve injuries, and need blood transfusions. All questions sought and answered. Consent was signed and placed in chart. Regino Mayer MD 06/21/2018 Region - Intrathoracic Non-Cardiac Informed Consent: Anesthetic plan and risks discussed with patient. Use of blood products discussed with patient who consented to blood products. Plan discussed with resident and attending. PAT Staff Note documented in this encounter Plan of Treatment Upcoming Encounters Date Type Department Care Team (Late st Contact Info) Description 12/19/2023 1:00 PM EDT Tech Visit [place] [address] Marguerite Macias 12/19/2023 3:00 PM EDT Office Visit V[place] [address] Gardenia Golden, [facility] [place] [address] 01/29/2024 1:[address] [place] [address] César Escobar MD [facility] [place] [address] 01/29/2024 2:30 PM EDT Office Visit [place] [address] César Escobar MD [facility] [place] [address] documented as of this encounter Visit Diagnoses Not on filedocumented in this encounter Administered Medications Inactive Administered Medications - up to 3 most recent administrations Medication Order MAR Action Action Date Dose Rate Site cefTRIAXone (ROCEPHIN) 2 g vial attach to sodium chloride 0.9% 50 mL Mini-Bag Plus 2 g, Intravenous, EVERY 24 HOURS, First dose on Meseret 06/21/18 at 1100, Until Discontinued, Administer over 30 Minutes, Attach to 50 mL sodium chloride 0.9% Mini-Bag Plus , Intra-Operative (Intra-Procedure), Indication for (Active or Suspected): Prophylaxis New Bag 06/21/2018 11:55 AM EDT 2 g fentaNYL 50 mcg/mL multi-dose injection PRN, Starting on Meseret 06/21/18 at 1144, Until Meseret 06/21/18 at 1411, Anesthesia Intra-op, Routine Given 06/21/2018 2:03 PM EDT 25 mcg Given 06/21/2018 1:51 PM EDT 50 mcg Given 06/21/2018 1:40 PM EDT 25 mcg glycopyrrolate (ROBINUL) multi-dose injection PRN, Starting on Meseret 06/21/18 at 1346, Until Meseret 06/21/18 at 1411, Anesthesia Intra-op, Routine Given 06/21/2018 1:46 PM EDT 0.6 mg insulin lispro (HumaLOG) VIAL injection 2-8 Units 2-8 Units, Subcutaneous, EVERY 4 HOURS SCHEDULED, First dose on Meseret 06/21/18 at 1600, Until Discontinued, CORRECTION BOLUS Moderate BG 140 [...] NPO, unless specifically told to do so., Recovery (Recovery-Hospital Unit), Routine Given 06/24/2018 11:18 AM EDT 8 Units Given 06/23/2018 11:56 PM EDT 5 Units Given 06/23/2018 8:00 PM EDT 5 Units lactated ringers infusion 1,000 mL, at 100 mL/hr, Intravenous, CONTINUOUS, Starting on Meseret 06/21/18 at 1100, Until Meseret 06/21/18 at 2041, Using macrodrip IV tubing with 2 claves and 2 stopcocks, Day of Surgery (Day of Procedure) New Bag 06/21/2018 11:40 AM EDT New Bag 06/21/2018 11:00 AM EDT 1,000 mLs 100 mL/hr midazolam (PF) (VERSED) multi-dose injection PRN, Starting on Meseret 06/21/18 at 1137, Until Meseret 06/21/18 at 1411, Anesthesia Intra-op, Routine Given 06/21/2018 11:37 AM EDT 1 mg neostigmine (BLOXIVERZ) injection PRN, Starting on Meseret 06/21/18 at 1346, Until Meseret 06/21/18 at 1411, Anesthesia Intra-op, Routine Given 06/21/2018 1:46 PM EDT 4 mg ondansetron (ZOFRAN) injection PRN, Starting on Meseret 06/21/18 at 1348, Until Mseeret 06/21/18 at 1411, Anesthesia Intra-op, Routine Given 06/21/2018 1:48 PM EDT 4 mg propofol (DIPRIVAN) 10 mg/mL bolus injection (Anesthesia) PRN, Starting on Meseret 06/21/18 at 1212, Until Meseret 06/21/18 at 1411, Anesthesia Intra-op Given 06/21/2018 11:47 AM EDT 50 mg Given 06/21/2018 11:44 AM EDT 150 mg propofol (DIPRIVAN) infusion CONTINUOUS PRN, Starting on Meseret 06/21/18 at 1246, Until Meseret 06/21/18 at 1411, Anesthesia Intra-op, Routine Rate/Dose Change 06/21/2018 1:33 PM EDT 50 mcg/kg/min 28.8 mL/hr New Bag 06/21/2018 12:46 PM EDT 100 mcg/kg/min 57.6 mL/ hr rocuronium (ZEMURON) multi-dose injection PRN, Starting on Meseret 06/21/18 at 1144, Until Meseret 06/21/18 at 1411, Anesthesia Intra-op, Routine Given 06/21/2018 11:44 AM EDT 70 mg documented in this encounter Care Teams Fast Food Sales Assistant Relationship Specialty Start Date End Date Shirley Yu MD [address] [place] [address] PCP - General 11/19/14 documented as of this encounter
--- OUTSIDE RECORDS SUMMARY | 2023-12-13 18:28 | XMS_ITS | Encounter Summary ---
[place] [address] Care Team Providers Care Continuing Education Director Name Role Phone Shirley Yu MD Primary Care Provider [phone] Reason for Visit * Reason Onset Date Comments Other 07/03/2018 Encounter Details Date Type Department Care Team (Late Contact Info) Description 07/03/2018 Telephone [place] [phone] Kayla Poe RN Other Social History Tobacco Use Types Packs/Day Years [...] Telephone Encounter - Kayla Poe RN - 07/03/2018 4:14 PM EDT TC to Casandra to check in Left message to check in. Casandra can return call to office if she has any questions or concerns. documented in this encounter Plan of Treatment Upcoming Encounters Date Type Department Care Team (Late Contact Info) Description 12/19/2023 1:00 PM EDT Tech [place] [phone] Marguerite Macias 12/19/2023 3:00 PM EDT Office [place] [address] Gardenia Golden, [facility] [place] [address] 01/29/2024 1:[address] [place] [address] César Escobar MD [facility] DR THORACIC SURGERY [place], [place] [id number] 01/29/2024 2:30 PM EDT Office [place] [address] César Escobar MD [facility] DR THORACIC SURGERY [place], [place] [id number] documented as of this encounter Visit Diagnoses Not on filedocumented in this encounter Care Teams Continuing Education Director Relationship Specialty Start Date End Date Shirley Yu MD [address] [place] [address] PCP - General 11/19/14 documented as of this encounter
--- OUTSIDE RECORDS SUMMARY | 2023-12-13 18:28 | XMS_ITS | Encounter Summary ---
Author Organization [facility] Address [place] [id number] Care Team Providers Care Assembly Member Name Role Phone Shirley Yu MD Primary Care Provider [phone] Reason for Visit * Reason Comments Referral * Consultation (Routine) - Closed Specialty Diagnoses / Procedures Referred By Contpietro mcleod Referred To Contact Pulmonology Diagnoses Right lower lobe pulmonary nodule César Escobar MD [facility] [place] [address] [facility] [address] [place] [address] Referral ID Status Reason Start Date Expiration Date V isits Requested Visits Authorized [id number] Closed Consult, Test & Treat 07/09/2018 07/09/2019 1 1 Encounter Details Date Type Department Care Team (Late st Contact Info) Description 07/30/2018 10:00 AM EDT Office [place] [address] Hayden Mckenna MD [facility] [place] [address] Pneumonitis; Multiple pulmonary nodules Social History Tobacco Use Types Packs/Day [...] Sign Reading Time Taken Comments Blood Pressure 149/54 07/30/2018 10:17 AM EDT Pulse 75 07/30/2018 10:17 AM EDT Temperature - - Respiratory Rate 16 07/30/2018 10:17 AM EDT Oxygen Saturation 99% 07/30/2018 10:17 AM EDT Inhaled Oxygen Concentration - - Weight 98.9 kg (218 lb) 07/30/2018 10:17 AM EDT Height - - Body Mass Index 34.91 07/09/2018 10:47 AM EDT documented in this encounter Progress Notes * Hayden Mckenna MD - 07/30/2018 10:00 AM EDT Images from the original note were not included. [facility] Section of Pulmonary Medicine Outpatient Consultation Date of Encounter: 08/03/2018 Referring Provider: César Escobar Md [facility] [place] [address] PCP: Shirley Yu MD Reason for Consult: I was asked to evaluate this patient for Multiple pulmonary nodules. I have personally interviewed and examined the patient. I have independently viewed her radiographic studies, pulmonary function testing and laboratory data. Background/HPI / Current Symptoms: Patient is a 57 yo woman former smoker ( quit 06/26), with multiple medical problems including DMl; HTN; HLD; PAD and MANISH on CPAP who is referred for management of multiple pulmonary nodules. Pt has a history of multiple pulmonary nodules dating back to at least 2006. She was initially referred to thoracic surgery by vascular surgery because of an unexpected finding on 03/19/18 ib a CTA which showed interval enlargement of a 9 mm Lt and an 8 mm RLL nodules. On 04/23/[address] of chest which showed multiple new centrilobar pulmonary nodules, growing RLL nodule and old granulomatous disease which was unchanged. On 06/21/18 She underwent thoracoscopy and wedge resection of a RLL nodule. Path was positive for caseating granuloma and emphysema. Patient is now referred for pulmonary evaluation of multiple pulmonary nodules. Patient is a former smoker. She smoked 1 PPD since age 14. She quit in June of 2018. She has persistent dyspnea on exertion. She denies any cough or wheeze. She has had no fevers or chills or wt loss. She has no recent travels or exposures. 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 She has had a parokeet and a cockatiel for many years. Her spirometry in April was normal with a mild reduction in DLCO. Review of Systems: A total of 10 systems were reviewed and were negative other than as listed below: Past Medical History: Past Medical History: Diagnosis [...] CATARACT EXTRACTION, EXTRACAPSULAR, W/ LENS INSERTION 06/2013 OU - Dr Szymanski ??? PRO BRONCHOSCOPY, DIAGNOSTIC N/A 06/21/2018 BRONCHOSCOPY, DIAGNOSTIC (WRVU 2.78) performed by César Escobar MD at [facility] MAIN OR ? ? PRO EDG FLEXIBLE TRANSORAL ABLATE TUMOR POLYP/LESION W/DILATION & WIRE N/A 06/22/2016 EGD, TRANSORAL; WITH ABLATION OF TUMOR(S), POLYP(S), OR OTHER LESION(S) (WRVU 4.26) performed by Christos Donald MD at [facility] ENDOSCOPY ??? PRO INJECT NERV BLCK, INTERCOST, MULTPL Right 06/21/2018 NERVE BLOCK, INTERCOSTAL NERVE, MULTIPLE (WRVU 1.68) [facility] ??? PRO THORACOSCOPY WITH THERAPEUTIC WEDGE RESECTION INITIAL UNILAT Right 06/21/2018 @THORACOSCOPY, SURG; W/THERAPEUTIC WEDGE RESECTION, INIT UNILATERAL (WRVU 14.5) performed by César Escobar MD at [facility] MAIN OR ??? PRO UPPER GI ENDOSCOPY, BIOPSY N/A 10/24/2016 UPPER GASTROINTESTINAL ENDOSCOPY,WITH BIOPSY SINGLE OR MULTIPLE (WRVU 2.49) performed by Agapito Parmar MD at [facility] ENDOSCOPY ??? PRO UPPER GI ENDOSCOPY, DIAGNOSTIC N/A 06/22/2016 EGD, UPPER GI ENDOSCOPY performed by Christos Donald MD at [facility] ENDOSCOPY ??? RETINAL LASER SURGERY Left [...] SFA stents ??? VASCULAR SURGERY 1009 Right SHAKER OPERATOR-AK pop vein graft ??? VS ARTERIOGRAM LOWER EXTREMITY VASCULAR SURGERY 04/27/2018 VS Arteriogram Lower Extremity Vascular Surgery 04/27/2018 Kaity Fontaine MD [facility] INTERVENTIONL RAD ??? YAG CAPSULOTOMY Right 02/27/15 YAG CAP OD - Nessa Medications: Current Outpatient Medications Medication Sig Dispense Refill ??? insulin aspart U-100 (NOVOLOG U-100 INSULIN [...] 2 times daily. 180 capsule 3 ??? Diabetic Supplies, Miscellan. Misc Form faxed to [email or web address] for pump supplies. 100 each 12 ??? losartan (COZAAR) 100 mg Tablet Take 50 mg by mouth daily. ??? cilostazol (PLETAL) 100 mg tablet Take 1 tablet by mouth 2 times daily. 180 tablet 3 ??? Magnesium 250 mg Tab Take by mouth daily. ??? aspirin 81 mg EC tablet Take 81 mg by mouth daily. ??? insulin lispro (HUMALOG) 100 unit/mL injection Inject 55-60 Units subcutaneously continuous. Via insulin pump No current facility-administered medications for this visit. Allergies: Sulfa (sulfonamide antibiotics) and Pcn [penicillins] Immunizations: Immunization History Administered Date(s) Administered ??? Influenza PF, Split 01/02/2017 ??? Influenza Vaccine w/Preservative, Split 01/25/2015 ??? Pneumococcal Conjugate (13 Valent) 02/18/2015 ??? Pneumococcal Polyvalent 23 04/10/2005 Social History: Social History Tobacco Use ??? Smoking status: Former Smoker Packs/day: 0.50 Years: 30.00 Pack years: 15.00 Types: Cigarettes Last attempt to quit: 08/14/2014 Years since quittin.9 ??? Smokeless tobacco: Never Used ??? Tobacco comment: Smoked 1 ppd for 30 years Substance Use Topics ??? Alcohol use: No ??? Drug use: No Family History: Family History Problem Relation Age of Onset [...] Blindness Neg Hx ??? Amblyopia Neg Hx Examination: BP 149/54 Pulse 75 Resp 16 Wt 98.9 kg (218 lb) SpO2 99% BMI 34.91 kg/m?? General: WD/WN in no distress HEENT: PERRLA; EOMI; No cervical lymphadenopathy, Oropharynx clear Resp: CTA B/L No crackles or wheeze CV: RRR; S1 + S2; no murmurs GI: Normal BS; Abdomen soft and non-tender, no organomegaly Skin: No rash Extremities: No clubbing, no cyanosis, no edema MSK: Calves soft and non tender Neurologic: CN's intact, no focat deficits, normal gait Psych: Normal mood and affect Labs: Lab Results Component Value Date WBC 9.8 (H) 06/23/2018 HGB 11.2 (L) 06/23/2018 HCT 35.4 (L) 06/23/2018 PLATELET 214 06/23/2018 Last 3 Lytes Recent Labs 06/24/18 0411 06/23/18 1943 06/23/18 1012 NA 142 142 139 K 4.1 3.9 4.4 CL 107 106 106 CO2 23 23 22 BUN 32* 35* 33* CREATININE 1.75* 1.88* 1.92* Last 3 LFTs Recent Labs 06/04/18 1347 AST 15 ALT 8 ALKPHOS 101 BILITOT 0.4 Last Ca, Mg, Phos No results for input(s): CALCIUM, PHOS in the last 168 hours. Invalid input(s): MAGNESIUM1 Last 3 HgbA1C Recent Labs 01/25/18 1443 HA1C 8.4* Last CRP, SEDRATENo results for input(s): CRP, SEDRATE in the last 7068 hours. Imaging: Available CXR and CT Chest images were viewed personally and reports were reviewed. I agree with the radiology reads. CT Results for orders placed during the hospital encounter of 04/23/18 CT Chest wo Contrast (Generic) Narrative EXAMINATION: CT CHEST WO CONTRAST (GENERIC) CLINICAL HISTORY: bilateral lower lobe nodules TECHNIQUE: Helical CT of the chest was performed without contrast. Multiplanar reformatted images were reviewed. COMPARISON: Chest CT 09/27/2016 FINDINGS: Lungs and airways: There are numerous new poorly defined subcentimeter pulmonary nodules in a predominantly centrilobular upper lung zone distribution. There is also a least one new subcentimeter cavity in the RIGHT upper lobe (series 5 image 106). This combination of findings is most consistent with Langerhans cell histiocytosis (LCH) or possibly hypersensitivity pneumonitis. In addition, there is been a slight increase in size and some of the solid noncalcified nodules, the largest increasing from 6.7 to 9.3 mm, which corresponds to a volumetric doubling time of 403 days (series 5 image 233). There is no other interval change. Again noted are multiple subcentimeter calcified nodules most consistent with old granulomatous disease. The central airways are patent. Pleura and pericardium: No effusions. Heart and vasculature: Heart size normal. Severe coronary artery calcification. Mediastinum and hilar structures: No lymphadenopathy Allowing for the lack of intravenous contrast, the portions of the abdominal organs included in the field of view are unchanged. Osseous structure: No focal lytic or sclerotic osseous lesion. Impression Impression: 1. New centrilobular pulmonary nodules most consistent with LCH or hypersensitivity pneumonitis. 2. New cavity in RIGHT upper lobe most consistent with LCH. 3. Growing 9 mm RIGHT lower lobe noncalcified nodule, consider follow-up noncontrast chest CT in one year or PET/CT to exclude primary lung cancer. 4. Old granulomatous disease, unchanged. Assessment: This is a 57 yo woman, former smoker with multiple pulmonary nodules, some of which have increased in size, centrilobular and some with early central cavity. She is s/p VATS, path showing caseating granuloma. She has no evidence of any infections. She does have a parokeet and a cockatiel at home which raises the suspicion for hypersensitivity pneumonitis, vs sarcoidosis vs Langerhan's cell histiocytosis. Plan: Will check serum AMARILYS, hypersensitivity panel Pt is to have a follow up chest CT In about 3 months. Follow up: 3 months Thank you for the referral Patient was seen for a total of 45 minutes, with 35 minutes of that time spent in discussion with the patient regarding his current clinical condition, test results, and further management. Hayden Mckenna MD Pulmonary and Critical Care Medicine Pager #[phone] documented in this encounter Plan of Treatment Upcoming Encounters Date Type Department Care Team (Late st Contact Info) Description 12/19/2023 1:00 PM EDT Tech [place] [phone] Marguerite Macias 12/19/2023 3:00 PM EDT Office [place] [address] Gardenia Golden, [facility] DR VASCULAR SURGERY [place], [place] [id number] 01/29/2024 1:[address] [place] [address] Esc[address] [facility] [place] [address] 01/29/2024 2:30 PM EDT Office [place] [address] [facility] [place] [address] documented as of this encounter Visit Diagnoses Diagnosis Pneumonitis Pneumonia, organism unspecified Multiple pulmonary nodules Other nonspecific abnormal finding of lung field documented in this encounter Care Teams Assembly Member Relationship Specialty Start Date End Date Shirley Yu MD [address] [place] [address] PCP - General 11/19/14 documented as of this encounter
--- OUTSIDE RECORDS SUMMARY | 2023-12-13 18:28 | XMS_ITS | Encounter Summary ---
[place] [address] Care Team Providers Care Photograph Editor Name Role Phone Shirley Yu MD Primary Care Provider [phone] Encounter Details Date Type Department Care Team (Late st Contact Info) Description 08/20/2018 Orders [place] [phone] Zenobia Chau, CHANTELLE PVD (peripheral vascular disease) with claudication Social History Tobacco Use Types Packs/Day Years [...] PM EDT Tech [place] [address] Marguerite Macias 12/19/2023 3:00 PM EDT Office [place] [address] Gardenia Golden APRN [facility] [place] [address] 01/29/2024 1:[address] [place] [address] César Escobar MD [facility] [place] [address] 01/29/2024 2:30 PM EDT Office [place] [address] César Escobar MD [facility] [place] [address] documented as of this encounter Results * Unilat Bypass Graft Assess (12/17/2018 10:59 AM EDT) Pathologist [facility] VB Text Report Department: Vascular Surgery Lab Patient: [id number] (JENNIFER SNYDER) CPT: 50863 ICD10: I70.411;I73.9 Referring Physician: JAXON FONTAINE MD ?? Phone: Indications: ?? Right proximal superficial femoral artery to above knee popliteal artery graft. ICD10 Diagnosis Code: I70.411, I73.9 Findings: Right Fem-Pop AK SEGMENT ? PSV (cm/s) ??EDV ??Location ? Right Inflow Artery (Graft) ?457 ?? 33 ??Superficial Femoral, Proximal ?? Inflow Anastomosis, Right ?269 ?? 13 ??Superficial Femoral, Proximal ?? Right Proximal Graft ?75 ?0 ? Right Mid Graft ? 59 ?0 ? Right Distal Graft ?61 ?0 ? Outflow Anastomosis, Right ?57 ?0 ??Popliteal, Above Knee ? Right Outflow Artery (Graft) ? 124 ?5 ??Popliteal, Above Knee ? Interpretation: Right: Patent proximal superficial femoral artery to above knee popliteal artery graft with a significant stenosis at the origin of the superficial femoral artery (194-457 cm/s, 2.4 x step up; previously on 08/17/18 velocities were 424 cm/s). The graft body is patent with no evidence of stenosis. No significant change compared to previous exam on 08/17/18. Electronically Signed by: JAXON FONTAINE MD on 2018-12-17 01:12:38 PM [facility] VB Text Report End of Report [facility] 12/17/2018 10:5 9 AM EDT Jaxon Fontaine MD VASCULAR ORDERABLES [facility] * SHEFALI, legs, multiple levels (12/17/2018 10:59 AM EDT) VB Text Report Department: Vascular Surgery Lab Patient: [id number] (JENNIFER SNYDER) CPT: 71437 ICD10: I70.413;I73.9 Referring Physician: JAXON FONTAINE MD ?? Phone: Indications: Right proximal superficial femoral artery to above knee popliteal artery graft. Diabetes mellitus: Yes ICD10 Diagnosis Code: I70.413, I73.9 Findings: Right ?Pressure (mm Hg) ?? SHEFALI ??Waveform ? TBI ?? Brachial Artery ?177 ? Dorsalis Pedis (Ankle) Artery ?167 ? 0.89 ??Biphasic-Rev ? Posterior Tibial (Ankle) Artery ??168 ? 0.90 ??Biphasic-Rev ? Great Toe ?104 ? 0.56 ?? Left ? Pressure (mm Hg) ?? SHEFALI ??Waveform ? TBI ?? Brachial Artery ?187 ? Dorsalis Pedis (Ankle) Artery ?103 ? 0.55 ??Monophasic ? Posterior Tibial (Ankle) Artery ??116 ? 0.62 ??Monophasic ? Great Toe ?69 ?0.37 ?? Interpretation: RIGHT: MIld lower extremity arterial occlusive disease. No significant [...] ? ---- ??0.88(-.01) 0.94(-.01) 0.63 ? ---- Current ? 0.89(+.01) 0.90(-.04) 0.56(-.07) ---- Date ?LEFT DP ?LEFT PT ?LT [...] ? ---- ??0.59(-.03) 0.59(-.03) 0.40 ? ---- Current ? 0.55(-.04) 0.62(+.03) 0.37(-.03) ---- Electronically Signed by: JAXON FONTAINE MD on 2018-12-17 01:13:32 PM [facility] VB Text Report End of Report [facility] 12/17/2018 10:5 9 AM EDT Jaxon Fontaine MD VASCULAR ORDERABLES [facility] documented in this encounter Visit Diagnoses Diagnosis PVD (peripheral vascular disease) with claudication Peripheral vascular disease, unspecified documented in this encounter Care Teams Photograph Editor Relationship Specialty Start Date End Date Shirley Yu MD [address] [place] [address] PCP - General 11/19/14 documented as of this encounter
--- OUTSIDE RECORDS SUMMARY | 2023-12-13 18:28 | XMS_ITS | Encounter Summary ---
Author Organization [facility] [place] [address] Care Team Providers Care Admissions Director Name Role Phone Shirley Yu MD Primary Care Provider [phone] Reason for Visit * Reason Comments Circulatory Problem claudication pvd f/u Encounter Details Date Type Department Care Team (Late st Contact Info) Description 08/17/2018 2:30 PM EDT Office Visit [place] [phone] Kaity Fontaine MD [facility] [place] [place] [address] PVD (peripheral vascular disease) Social History Tobacco [...] Sign Reading Time Taken Comments Blood Pressure 172/68 08/17/2018 2:33 PM EDT Pulse 69 08/17/2018 2:33 PM EDT Temperature - - Respiratory Rate 18 08/17/2018 2:33 PM EDT Oxygen Saturation - - Inhaled Oxygen Concentration - - Weight 96.2 kg (212 lb) 08/17/2018 2:33 PM EDT Height 170.2 cm (5' 7) 08/17/2018 2:33 PM EDT Body Mass Index 33.2 08/17/2018 2:33 PM EDT documented in this encounter Progress Notes * Kaity Fontaine MD - 08/17/2018 2:30 PM EDT Images from the original note were not included. Vascular Surgery Clinic Visit August 17, 2018 CC: Patient is a 57 y.o. female who is here for follow up of PVD. 2000 L CEA (Dr Fong) 2004 R CEA (Dr Avendano) ?? 2007 R fem-AK-pop bypass with GSV (Dr Avendano) 2012 L EIA stent (8x60 SE p7), RLE vein graft CRYSTALIZER (Dr Avendano) ?? 04/27/18 R ANIMAL CARE SPECIALIST/proximal graft and distal graft/pop CRYSTALIZER (6mm and 5mm balloons) ?? Presents for scheduled follow up visit. Has undergone RLL wedge resection with Dr Escobar in 06/2017. Continues to deny RLE claudication symptoms. No rest pain or non-healing wounds. Denies any symptoms in LLE. ?? ROS is negative for history of CAD, ND, CP, or SOB. No history suggestive of stroke, TIA, or amaurosis fugax. Has DM, on??insulin pump. Is a past smoker, having quit in??2014. ?? PMH:??HTN, HLD, DM, hyperthyroidism, RLL wedge resection for pulmonary granuloma 06/25, GINGER/BSO '02 All:??sulfa, PCN Meds include:??asa, pradaxa, pletal, coreg, losartan, zocor, protonix, synthroid, insulin, celexa Tob:??quit 2014 FHx:??neg for coagulopathy ?? Physical Exam: On exam,??she??is in NAD, RRR, CTA B, Abd soft/NT/ND. Palpable pedal pulses on the right. No open lesions on either foot. Labs: Access Services Librarian (06/24/18): 1.75 Lipids (10/14/14): TC 160, HDL 78, LDL 109 HbA1C (01/25/18): 8.4 Imaging studies: I have personally reviewed the following imaging studies. RLE graft duplex (08/17/18): Findings: Right Fem-Pop AK SEGMENT ? PSV (cm/s) ??EDV ??Location ? Inflow Anastomosis, Right ?236 ?0 ??Common Femoral ? Outflow Anastomosis, Right ?82 ?4 ??Popliteal, Above Knee ?? Right High Thigh (Graft) ?77 ?0 ? Right Mid Thigh (Graft) ? 70 ?0 ? Right Inflow Artery (Graft) ?424 ?0 ??Common Femoral ? Right Outflow Artery (Graft) ? 100 ?7 ??Popliteal, Above Knee ?? Right Proximal Graft ?78 ?0 ? Right Mid Graft ? 65 ?0 ? Right Distal Graft ?67 ?4 ? Interpretation: ?? RIGHT: There are elevated velocities in the common femoral artery inflow near the proximal anastomosis with PSV 424 cm/s; previously 446 cm/s. The common femoral to above knee popliteal artery bypass graft is patent with no identifiable region of stenosis. SHEFALI (08/17/18): 0.94/0.59 A/P: 57yo female s/p RLE vein graft CRYSTALIZER for graft salvage with resolution of claudication symptoms and palpable pedal pulses. She has elevated velocity in the inflow R ANIMAL CARE SPECIALIST where there appears to be adissection - velocities remain stable. May need open revision at some point. For now, she wishes tocontinue with close surveillance. Will see her back in 3 months for follow up. ?? -con't asa, pradaxa and statin. -con't smoking cessation -regular walking regimen -f/u 3mo with RLE graft duplex and SHEFALI ?? Kaity Fontaine MD documented in this encounter Plan of Treatment Upcoming Encounters Date Type Department Care Team (Late st Contact Info) Description 12/19/2023 1:00 PM EDT Tech [place] [address] Marguerite Macias 12/19/2023 3:00 PM EDT Office Visit [place] [address] Gardenia Golden, [facility] [place] [address] 01/29/2024 1:[address] [place] [address] César Escobar MD [facility] DR THORACIC SURGERY [place], [place] [id number] 01/29/2024 2:30 PM EDT Office Visit [place] [address] César Escobar MD [facility] [place] [address] documented as of this encounter Visit Diagnoses Diagnosis PVD (peripheral vascular disease) Peripheral vascular disease, unspecified documented in this encounter Care Teams Admissions Director Relationship Specialty Start Date End Date Shirley Yu MD [address] [place] [address] PCP - General 11/19/14 documented as of this encounter
--- OUTSIDE RECORDS SUMMARY | 2023-12-13 18:28 | XMS_ITS | Encounter Summary ---
[place] [address] Care Team Providers Care Clinical Education Manager Name Role Phone Shirley Yu MD Primary Care Provider [phone] Encounter Details Date Type Department Care Team (Late st Contact Info) Description 06/14/2018 Telephone [place] [phone] Kayla Poe RN Social History Tobacco Use Types Packs/Day [...] Telephone Encounter - Kayla Poe RN - 06/14/2018 2:34 PM EST Returned call by Jennifer Discuss when to stop cilostazol (Pletal) and dabigatran (Pradaxa) on MondayJune 18 - 3 days prior to surgical date of 06/21/18. Jennifer verbalized understanding. Jennifer will call with any other questions or concerns. documented in this encounter Plan of Treatment Upcoming Encounters Date Type Department Care Team (Late st Contact Info) Description 12/19/2023 1:00 PM EDT Tech [place] [address] Marguerite Macias 12/19/2023 3:00 PM EDT Office Visit [place] [address] Gardenia Golden, [facility] [employer] [address] 01/29/2024 1:[address] [place] [address] César Escobar MD [facility] [place] [address] 01/29/2024 2:30 PM EDT Office [place] [address] César Escobar MD [facility] DR THORACIC SURGERY [place], [place] [id number] documented as of this encounter Visit Diagnoses Not on filedocumented in this encounter Care Teams Clinical Education Manager Relationship Specialty Start Date End Date Shirley Yu MD [address] [place] [address] PCP - General 11/19/14 documented as of this encounter
--- OUTSIDE RECORDS SUMMARY | 2023-12-13 18:28 | XMS_ITS | Encounter Summary ---
Author Organization [facility] Address [facility] [place] [address] Care Team Providers Care Personnel Associate Name Role Phone Shirley Yu MD Primary Care Provider [phone] Encounter Details Date Type Department Care Team (Latest Contact Info) Description 07/09/2018 10:33 AM EDT - 07/09/2018 11:59 PM EDT Hospital Encounter XRay at [address] [place] [address] César Escobar MD [facility] [place] [address] Right lower lobe pulmonary nodule Discharge Disposition: Home Social History Tobacco Use [...] 20 mg Tablet Take by mouth. 08/13/2012 insulin aspart U-100 (NovoLOG) 100 unit/mL Solution Inject subcutaneously 3 times daily (with meals). ONETOUCH ULTRA TEST Strip 1 strip by Other route 4 times daily. 4 11/23/2016 pantoprazole (PROTONIX) 40 mg Tablet, Delayed Release (E.C.) TAKE ONE TABLET BY MOUTH TWICE A DAY 98 07/26/2016 Diabetic Supplies, [employer]. Misc Form faxed to [employer] for pump supplies. 100 each 12 03/23/2015 losartan (COZAAR) 100 mg Tablet Take 50 mg by mouth daily. 08/11/2014 aspirin 81 mg EC tablet Take 81 mg by mouth daily. insulin lispro (HUMALOG) 100 unit/mL injection Inject 55-60 Units subcutaneously continuous. Via insulin pump insulin lispro (HumaLOG) Solution 31/1001/07/2016 3 levothyroxine (SYNTHROID) 125 mcg Tablet TAKE ONE [...] times daily. 180 capsule 3 08/24/2015 02/08/2019 cilostazol (PLETAL) 100 mg tablet Take 1 tablet by mouth 2 times daily. 180 tablet 3 10/15/2012 02/04/2019 Magnesium 250 mg Tab Take by mouth daily. 022 documented as of this encounter Plan of Treatment Upcoming Encounters Date Type Department Care Team (Late st Contact Info) Description 12/19/2023 1:00 PM EDT Tech [place] [phone] Marguerite Macias 12/19/2023 3:00 PM EDT Office [place] [phone] Gardenia Golden, NOC ANALYST [facility] [place] [address] 01/29/2024 1:[address] [place] [address] César Escobar MD [facility] THORACIC SURGERY [place], [place] [id number] 01/29/2024 2:30 PM EDT Office [place] [address] César Escobar MD [facility] THORACIC SURGERY [place], [place] [id number] documented as of this encounter Procedures Procedure Name Priority Date/Time Associated Diagnosis Comments XR CHEST PA AND LATERAL Routine 07/09/2018 10:42 AM EDT Right lower lobe pulmonary nodule documented in this encounter Results * XR Chest PA & Lateral (Generic) (07/09/2018 10:42 AM EDT) Anatomical Region Laterality Modality Chest N/A Digital Radiogra phy Impressions 07/09/2018 11:00 AM EDT Resolved trace left effusion. However, right pleural effusion is increased. Thank you for letting us participate in the care of this patient. For questions regarding this report, please contact the number below. ? Narrative 07/09/2018 11:00 AM EDT EXAMINATION: XR CHEST PA AND LATERAL (GENERIC) CLINICAL HISTORY: s/p R VATS RLL wedge resection x 2 TECHNIQUE: PA and lateral views of the chest. COMPARISON: 06/24/2018. FINDINGS: Improved parenchymal opacity in the right lower lung, but increased or new small right pleural effusion. Trace left pleural effusion resolved, as is left lung base opacity present on prior. Small nodular opacities in both lungs not appreciably changed. Unchanged cardiac silhouette and vascular markings. No pneumothorax. Procedure Note Justine Mendez MD - 07/09/2018 EXAMINATION: XR CHEST PA AND LATERAL (GENERIC) CLINICAL HISTORY: s/p R VATS RLL wedge resection x 2 TECHNIQUE: PA and lateral views of the chest. COMPARISON: 06/24/2018. FINDINGS: Improved parenchymal opacity in the right lower lung, butincreased or new small right pleural effusion. Trace left pleural effusion resolved, asis left lung base opacity present on prior. Small nodular opacities in bothlungs not appreciably changed. Unchanged cardiac silhouette and vascularmarkings. No pneumothorax. IMPRESSION Resolved trace left effusion. However, right pleural effusion is increased. Thank you for letting us participate in the care of this patient. Forquestions regarding this report, please contact the number below. César Escobar MD IMG DX ORDERABLE S documented in this encounter Visit Diagnoses Diagnosis Right lower lobe pulmonary nodule documented in this encounter Care Teams Personnel Associate Relationship Specialty Start Date End Date Shirley Yu MD [address] [place] [address] PCP - General 11/19/14 documented as of this encounter
--- OUTSIDE RECORDS SUMMARY | 2023-12-13 18:28 | XMS_ITS | Encounter Summary ---
[place] [address] Care Team Providers Care Burling And Joining Supervisor Name Role Phone Shirley Yu MD Primary Care Provider Encounter Details Date Type Department Care Team (Late st Contact Info) Description 08/20/2018 Orders Only [place] [address] Zenobia Chau, CHANTELLE Social History Tobacco Use Types Packs/Day Years [...] PM EDT Tech [place] [address] Marguerite Macias 12/19/2023 3:00 PM EDT Office Visit [place] [address] Gardenia Golden, LADARIUS [facility] [place] [address] 01/29/2024 1:[address] [place] [phone] César Escobar MD [facility] [place] [address] 01/29/2024 2:30 PM EDT Office Visit [place] [phone] César Escobar MD [facility] [place] [address] documented as of this encounter Visit Diagnoses Not on filedocumented in this encounter Care Teams Burling And Joining Supervisor Relationship Specialty Start Date End Date Shirley Yu MD [address] [place] [address] PCP - General 11/19/14 documented as of this encounter
--- OUTSIDE RECORDS SUMMARY | 2023-12-13 18:28 | XMS_ITS | Encounter Summary ---
[place] [address] Care Team Providers Care Jet Dyeing Machine Operator Name Role Phone Shirley Yu MD Primary Care Provider [phone] Encounter Details Date Type Department Care Team (Late st Contact Info) Description 06/28/2018 Telephone [place] [phone] Kayla Poe, RN Social History Tobacco Use Types Packs/Day [...] Telephone Encounter - Kayla Poe RN - 06/28/2018 3:18 PM EDT TC from Casandra Casandra has been having rib pain since her procedure and it is still bothersome. Casandra has been taking acetaminophen 1000 mg and ibuprofen 400 mg every 6 hours alternating. Discussed with Casandra to decrease the amount of acetaminophen to either 500 mg or take it out of the mix completely and increase ibuprofen to 600 mg every 6 to 8 hours. Along with using a heating pad on either low to medium heat and lidocaine patches (just not with the heating pad). Casandra was willing to try these new recommendations. TS nurse will check in on Monday 07/03. RTC on 07/[address] Luz WILLS. Casandra knows to call with any other questions or concerns. documented in this encounter Plan of Treatment Upcoming Encounters Date Type Department Care Team (Late st Contact Info) Description 12/19/2023 1:00 PM EDT Tech [place] [phone] Marguerite Macias 12/19/2023 3:00 PM EDT Office Visit [place] [phone] Gardenia Golden APRN [facility] [place] [address] 01/29/2024 1:[address] [place] [phone] César Escobar MD [facility] [place] [address] 01/29/2024 2:30 PM EDT Office Visit [place] [phone] César Escobar MD [facility] [place] [address] documented as of this encounter Visit Diagnoses Not on filedocumented in this encounter Care Teams Jet Dyeing Machine Operator Relationship Specialty Start Date End Date Shirley Yu MD [address] [place] [address] PCP - General 11/19/14 documented as of this encounter
--- OUTSIDE RECORDS SUMMARY | 2023-12-13 18:28 | XMS_ITS | Encounter Summary ---
[place] [address] Care Team Providers Care Laundry Operator Finishing Name Role Phone Shirley Yu MD Primary Care Provider [phone] Encounter Details Date Type Department Care Team (Late st Contact Info) Description 12/17/2018 11:00 AM EDT Tech [place] [address] Erik Angelo, JESS PVD (peripheral vascular disease) with claudication Social [...] PM EDT Tech [place] [address] Marguerite Macias 12/19/2023 3:00 PM EDT Office Visit [place] [address] Gardenia Golden APRN [facility] DR VASCULAR SURGERY [place], [place] [phone] 01/29/2024 1:[address] [place] [address] César Escobar MD [facility] THORACIC SURGERY [place], [place] [phone] 01/29/2024 2:30 PM EDT Office Visit [place] [address] César Escobar MD [facility] THORACIC SURGERY [place], [place] [phone] documented as of this encounter Procedures Procedure Name Priority Date/Time Associated Diagnosis Comments UNILATERAL BYPASS GRAFT ASSESS Routine 12/17/2018 10:59 AM EDT PVD (peripheral vascular disease) with claudication SHEFALI, LEGS, MULTIPLE LEVELS Routine 12/17/2018 10:59 AM EDT PVD (peripheral vascular disease) with claudication documented in this encounter Results * SHEFALI, legs, multiple levels (12/17/2018 10:59 AM EDT) VB Text Report Department: Vascular Surgery Lab Patient: [id number] (JENNIFER SNYDER) CPT: 46331 ICD10: I70.413;I73.9 Referring Physician: JAXON FONTAINE MD [...] ORDERABLES VASCUBASE * Unilat Bypass Graft Assess (12/17/2018 10:59 AM EDT) VB Text Report Department: Vascular Surgery Lab Patient: [id number] (JENNIFER SNYDER) CPT: 13120 ICD10: I70.411;I73.9 Referring Physician: JAXON FONTAINE MD [...] unspecified documented in this encounter Care Teams Laundry Operator Finishing Relationship Specialty Start Date End Date Shirley Yu MD [address] [place] [address] PCP - General 11/19/14 documented as of this encounter
--- OUTSIDE RECORDS SUMMARY | 2023-12-13 18:28 | XMS_ITS | Encounter Summary ---
[place] [address] Care Team Providers Care Calender Worker Helper Name Role Phone Shirley Yu MD Primary Care Provider [phone] Encounter Details Date Type Department Care Team (Late st Contact Info) Description 06/26/2018 Telephone [place] [address] Adela Lynn RN [facility] Social History Tobacco Use Types Packs/Day Years [...] encounter Miscellaneous Notes * Telephone Encounter - Adela Lynn RN - 06/26/2018 2:45 PM EDT Thoracic Surgery Nursing Post-operative Follow up: Hx: Procedure: Procedure(s): 06/21/18 BRONCHOSCOPY, DIAGNOSTIC (WRVU 2.78) NERVE BLOCK, INTERCOSTAL NERVE, MULTIPLE (WRVU 1.68) @THORACOSCOPY, SURG; W/THERAPEUTIC WEDGE RESECTION, INIT UNILATERAL (WRVU 14.5) POD#: 5 General statement: Jennifer says that she is doing very well. She had been able to get outside for short periods as its cold. Pain: she says that her pain is a 3/10. She is using tylenol and ibuprofen for pain control with success. GI: She is eating and drinking without a problem. She says that she had not had a bowel movement yet and is going to the store to get miralax. I told her that she may want to try some MOM also. Respiratory: she is taking deep breaths and using her incentive spirometer as directed. Activity: she is up walking around her house. She knows how important it is to be active. Integumentary: she says that her wounds are healing well and she is using smaller dressings. Plan: Jennifer knows that she can call the thoracic clinic with any questions or concerns. documented in this encounter Plan of Treatment Upcoming Encounters Date Type Department Care Team (Late st Contact Info) Description 12/19/2023 1:00 PM EDT Tech [place] [address] Marguerite Macias 12/19/2023 3:00 PM EDT Office [place] [address] Gardenia Golden, LADARIUS [facility] [place] [address] 01/29/2024 1:[address] [place] [address] César Escobar MD [facility] [place] [address] 01/29/2024 2:30 PM EDT Office [place] [address] César Escobar MD [facility] DR [place] [address] documented as of this encounter Visit Diagnoses Not on filedocumented in this encounter Care Teams Calender Worker Helper Relationship Specialty Start Date End Date Shirley Yu MD [address] [place] [address] PCP - General 11/19/14 documented as of this encounter
--- OUTSIDE RECORDS SUMMARY | 2023-12-13 18:28 | XMS_ITS | Encounter Summary ---
Author Organization [facility] Address [facility] [address] Care Team Providers Care Grant Specialist Name Role Phone Shirley Yu MD Primary Care Provider [phone] Reason for Visit * Auth/Cert Specialty Diagnoses / Procedures Referred By Dominik mcleod Referred To Contact Diagnoses Lung nodule lung nodule Procedures PRO THORACOSCOPY SURG LOBECTOMY PRO BRONCHOSCOPY, DIAGNOSTIC @THORACOSCOPY,SURGICAL,W\LOBECTOMY, TOTAL OR SEGMENTAL (WRVU 24.64) BRONCHOSCOPY, DIAGNOSTIC (WRVU 2.78) Referral ID Status Reason Start Date Expiration Date Visits Re quested Visits Authorized [id number] 1 1 Encounter Details Date Type Department Care Team (Latest Contact Info) Description 06/21/2018 10:12 AM EDT - 06/24/2018 12:03 PM EDT Hospital Encounter [address] [place] [address] César Zarco MD [facility] [place] [address] PAD (peripheral artery disease); 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; Stenosis of left carotid artery; Obesity with serious comorbidity, unspecified classification, unspecified obesity type; Hypertension, unspecified type; Right lower lobe pulmonary nodule Discharge Disposition: [...] Sign Reading Time Taken Comments Blood Pressure 132/53 06/24/2018 7:09 AM EDT Pulse 65 06/23/2018 3:53 AM EDT Temperature 36.6 ??C (97.9 ??F) 06/24/2018 7:09 AM ED T Respiratory Rate 18 06/24/2018 7:09 AM EDT Oxygen Saturation 95% 06/24/2018 7:09 AM EDT Inhaled Oxygen Concentration - - Weight 96.6 kg (212 lb 14.4 oz) 06/24/2018 7:09 AM EDT Height 170.2 cm (5' 7) 06/21/2018 10:5 5 AM EDT Body Mass Index 33.34 06/21/2018 10:55 AM EDT documented in this encounter Discharge Summaries * OlimpiaMeng larael Lisa - 06/24/2018 9:30 AM EDT Department of Thoracic Surgery - Discharge Summary Patient Name: Jennifer Snyder Patient Age: 57 y.o. Birthdate: 1960 Admit date: 06/21/2018 Discharge date: 06/24/2018 Attending Physician: César Zarco MD Discharge Diagnoses (Hospital Problems) and Secondary Diagnoses (Chronic Problems): Active Hospital Problems Diagnosis ??? Lung nodule Resolved Hospital Problems No resolved problems to display. Active Non-Hospital Problems Diagnosis ??? Proliferative diabetic retinopathy of left eye ??? Obesity ??? Hypertension ??? Hyperlipidemia ??? Sleep apnea ??? Hypothyroidism ??? Depression ??? PDR (proliferative diabetic retinopathy) ??? Intermittent claudication ??? PAD (peripheral artery disease) ??? 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 Carotid stenosis ??? Hyperkeratosis palmaris et plantaris Operations/Major Procedures: Operations: Case Date: 06/21/2018 Surgeon: Surgeon(s) and Role: * César Zarco MD - Primary * Vinay Conley MD - Resident Procedure: Procedure(s): BRONCHOSCOPY, DIAGNOSTIC (WRVU 2.78) NERVE BLOCK, INTERCOSTAL NERVE, MULTIPLE (WRVU 1.68) @THORACOSCOPY, SURG; W/THERAPEUTIC WEDGE RESECTION, INIT UNILATERAL (WRVU 14.5) Other Major Procedures: none History of Presentation: Ms. Snyder is a 57-year-old woman with a history of tobacco use and COPD as well as a melanoma of the right arm. She was initially referred in April for evaluation of bilateral lower lobe lung nodules. At that time an angiogram was pending to evaluate her lower extremity arterial bypass grafts, and this has now been completed without difficulty or need for further intervention. She comes in today for surgical resection of her lung nodules. Hospital Course: Jennifer Snyder was admitted to [facility] on 06/21/2018 via the Same Day Program. She was brought to the operating room on 06/21/[address] César Zarco performed surgery as described above. She tolerated the procedure well and was brought to the Post Anesthesia Care Unit for recovery. After a brief period of time she was transferred to the floor for continued rehabilitation. The right chest tube was discontinued on post operative day # 1. Achest Xray after this demonstrated no pneumothorax but some atelectasis. With aggressive pulmonary toilet, she was able to wean off of oxygen and pass a walk test on room air. By postoperative day # 3 she had met all criteria for discharge to home. Pain was controlled on oral medications. She had walked 5 minutes. She was tolerating a regular diet and had had a bowel movement. Vital signs: Vital Signs Temp: 36.6 ??C (97.9 ??F) Temp src: Oral Heart Rate: 65 Heart Rate Source: Monitor Resp: 18 BP: 132/53 MAP (NBP): 79 mmHg BP Method: Automatic Patient Position: Sitting SpO2: 95 % O2 Flow Rate (L/min): 3 L/min O2 Device: Nasal cannula Admission Wt: 96.03 kg Last Wt: Wt Readings from Last 3 Encounters: 06/24/18 96.6 kg (212 lb 14.4 oz) 06/04/18 96.4 kg (212 lb 9.6 oz) 05/29/18 97.3 kg (214 lb 6.4 oz) Pertinent physical exam findings prior to discharge: Gen: NAD, pleasant, sitting in a park HEENT: normocephalic, atraumatic, EOMI, sclerae anicteric Neck: supple, trachea midline Card: RRR, no M/R/G appreciated Pulm: CTAB, no wheeze/ronchi/rales appreciated, non-labored breathing on RA Abd: soft, NT, BS+ Ext: warm, dry, no edema Neuro: A&Ox3, CN II-XII grossly intact, nonfocal, conversant Important Lab Data: Lab Results Component Value Date WBC 9.8 (H) 06/23/2018 HGB 11.2 (L) 06/23/2018 HCT 35.4 (L) 06/23/2018 MCV 95.4 (H) 06/23/2018 Lab Results Component Value Date NA 142 06/24/2018 K 4.1 06/24/2018 CL 107 06/24/2018 CO2 23 06/24/2018 Lab Results Component Value Date CREATININE 1.75 (H) 06/24/2018 Lab Results Component Value Date BUN 32 (H) 06/24/2018 No results found for: PREALBUMIN No results for input(s): PT, PTT, INR in the last 168 hours. Studies: CXR 06/24/18 Cardiomediastinal contours are within normal limits. Streaky densities in the bilateral infrahilar regions are again noted, slightly improved. Small bilateral pleural effusions have improved. CXR 06/22/18 (post pull): Cardiomediastinal contours are unchanged. The right-sided chest tube has been removed in the interval. Soft tissue emphysema in the right chest wall. Streaky densities in the bilateral lower lung zones are grossly unchanged or slightly worsened. Small bilateral pleural effusions. CXR 06/22/18: No pneumothorax or other new findings. CXR 06/21/18: Cardiomegaly. Platelike atelectasis in the bilateral lower lung zones. Pulmonary edema. A right-sided chest tube is in place. No pneumothorax. Trace of bilateral pleural effusions suspected. Pending Studies and Lab Data: No current labs Discharge Conditions/Prognosis: Stable Discharge to: Home Discharge Medications: Your Medications Continued medications, unchanged Dose Details aspirin 81 mg Tbec Take 81 mg by mouth daily. 81 mg Refills: 0 carvedilol 3.125 mg Tab Commonly known as: COREG Take 1.56 mg by mouth 2 times daily (with meals). 1.56 mg Refills: 0 cilostazol 100 mg Tab Commonly known as: PLETAL Take 1 tablet by mouth 2 times daily. 100 mg Quantity: 180 tablet Refills: 3 citalopram 40 mg Tab Commonly known as: CeleXA Take 20 mg by mouth 2 times daily. 20 mg Refills: 0 dabigatran 150 mg Cap Commonly known as: PRADAXA Take 1 capsule by mouth 2 times daily. 150 mg Quantity: 180 capsule Refills: 3 Diabetic Supplies, [employer]. Misc Form faxed to [employer] for pump supplies. Quantity: 100 each Refills: [...] Tab Take by mouth daily. Refills: 0 ONETOUCH ULTRA TEST Strp 1 strip by Other route 4 times daily. Generic drug: blood sugar diagnostic strips 1 strip Refills: 4 pantoprazole 40 mg Tbec Commonly known as: PROTONIX TAKE ONE TABLET BY MOUTH TWICE A DAY Refills: 98 simvastatin 40 mg Tab Commonly known as: ZOCOR Refills: 0 Updated Allergies/ADRs: Allergies Allergen Reactions ??? Sulfa (Sulfonamide Antibiotics) Other (See Comments) Renal failure, bleeding ??? Pcn [Penicillins] Unknown Instructions Given to Patient at Discharge: Patient Instructions Call if you have a fever of greater than 101 degrees, shaking chills, develop redness or drainage from your incision site(s), or if you have questions. During normal business hours, Monday- Monday 8:00 a.m.-5:00 p.m., please call to speak to a nurse in the Thoracic Clinic at [phone]. After hours or on weekends or holidays please call: [phone] and ask to speak to the Thoracic Surgeon cotton weigher. Exercise & Activity Level: As you recover from surgery exercise at least 30 minutes a day. Thiscan be broken up into several times a day to achieve this goal at first, but you will be able to work up to doing all 30 minutes at once. Walking, treadmill, stationary bike, elliptical machine or there stationary exercise equipment is appropriate. Take your incentive spirometer home with you. You should use this every hour while awake, 10 times each. This helps you to exercise your respiratory muscles and to breathe deeply. Taking purposeful deep breaths can be just as effective. Do not lift more than 10 pounds for 2 weeks (nothing heavier than a gallon of milk). Don???t exhaust yourself. Rest between activities as you recover from your procedure. Diet: You should follow a healthy, carb-controlled diet. Driving: No driving for 1 week or while taking narcotic pain medication. Shower/Bath: You may shower daily starting 2 days after chest tube removal, no bathing or swimming until your follow-up appointment. Incision care: Wash your incision(s) daily with soap and rinse well, pat dry. Assess for any signs of infection such as increased redness, pain, warmth or drainage. If you had a chest tube, you may remove the dressing over the chest tube site in 2 days after the chest tube was removed and leave it open to the air if it is not draining. Otherwise change the dressing twice a day and as needed. The dressing may remain off once there is no drainage. If you have steri-strips over an incision site, these will remain in place for 7-10 days. You may shower with them, and they will fall off naturally in 7-10 days. If they do not fall off by 10 days, you may remove them. Pain: Pain after surgery is normal. The goal is for you to be able to tolerate pain so you can complete your daily activities. You may notice a burning or numbness on the side of your incision that may include your breast area. This should improve over time but there may be areas that remain numb. You may use a heating pad set on low or medium, over your incision to help relax the muscles in the area and decrease discomfort. Please take over the counter Tylenol and Ibuprofen in an alternating fashion, as instructed, for baseline pain coverage. Do not exceed recommended dosages. Sleep: Try to establish normal sleep patterns. Long naps during the day may make it hard for you tosleep at night. Use the pain medication at bedtime for the first week at home if needed. Bowel Movements: After surgery, your bowel movements may not be regular for you, but you should be able to get back to your daily routine quickly. Please make sure to take the stool softeners or mildlaxatives as prescribed to get back to your normal routine. If you do not have a bowel movement formore than 2 days, please call the office. Follow up appointments: You will see Dr Zarco as indicated below with a chest Xray within one hour of the appointment. A letter will be mailed to you confirming your appointment information. Youshould arrange to see your primary care physician, in two weeks. Future Appointments Date Time Provider Department Center 08/17/2018 1:30 PM Lulu Reveles [place] [facility] 08/17/2018 2:30 PM Kaity Fontaine MD [facility] General Instructions None Future Appointments and Orders Future Appointments and Orders Future Appointments Provider Department Dept Phone 08/17/2018 1:30 PM Lulu Reveles [place] [facility] [place] Arrive at: [facility] Department Area [phone] 08/17/2018 2:30 PM Kaity Fontaine MD Vascular Surgery at [place] Arrive at: [facility] Department Area [phone] Provider Contact Information: Primary Care Provider: Shirley Yu MD [phone] Discharge References/Attachments: Discharge References/Attachments None For questions regarding this document or issues relating to this hospitalization on the Thoracic Surgery Service, please contact Dr. Zarco's office at . Signed: VINAY CONLEY MD 06/24/2018 Thoracic Surgery [facility] CC: PCP: Shirley Yu MD Referring: Kaity Fontaine Md [facility] [place] [address] documented in this encounter Discharge Instructions * Patient Instructions* Vinay Conley - 06/22/2018 11:32 AM EDT Call if you have a fever of greater than 101 degrees, shaking chills, develop redness or drainage from your incision site(s), or if you have questions. During normal business hours, Monday- Monday 8:00 a.m.-5:00 p.m., please call to speak to a nurse in the Thoracic Clinic at [phone]. After hours or on weekends or holidays please call: [phone] and ask to speak to the Thoracic Surgeon cotton weigher. Exercise & Activity Level: As you recover from surgery exercise at least 30 minutes a day. Thiscan be broken up into several times a day to achieve this goal at first, but you will be able to work up to doing all 30 minutes at once. Walking, treadmill, stationary bike, elliptical machine or there stationary exercise equipment is appropriate. Take your incentive spirometer home with you. You should use this every hour while awake, 10 times each. This helps you to exercise your respiratory muscles and to breathe deeply. Taking purposeful deep breaths can be just as effective. Do not lift more than 10 pounds for 2 weeks (nothing heavier than a gallon of milk). Don???t exhaust yourself. Rest between activities as you recover from your procedure. Diet: You should follow a healthy, carb-controlled diet. Driving: No driving for 1 week or while taking narcotic pain medication. Shower/Bath: You may shower daily starting 2 days after chest tube removal, no bathing or swimming until your follow-up appointment. Incision care: Wash your incision(s) daily with soap and rinse well, pat dry. Assess for any signs of infection such as increased redness, pain, warmth or drainage. If you had a chest tube, you may remove the dressing over the chest tube site in 2 days after the chest tube was removed and leave it open to the air if it is not draining. Otherwise change the dressing twice a day and as needed. The dressing may remain off once there is no drainage. If you have steri-strips over an incision site, these will remain in place for 7-10 days. You may shower with them, and they will fall off naturally in 7-10 days. If they do not fall off by 10 days, you may remove them. Pain: Pain after surgery is normal. The goal is for you to be able to tolerate pain so you can complete your daily activities. You may notice a burning or numbness on the side of your incision that may include your breast area. This should improve over time but there may be areas that remain numb. You may use a heating pad set on low or medium, over your incision to help relax the muscles in the area and decrease discomfort. Please take over the counter Tylenol and Ibuprofen in an alternating fashion, as instructed, for baseline pain coverage. Do not exceed recommended dosages. Sleep: Try to establish normal sleep patterns. Long naps during the day may make it hard for you tosleep at night. Use the pain medication at bedtime for the first week at home if needed. Bowel Movements: After surgery, your bowel movements may not be regular for you, but you should be able to get back to your daily routine quickly. Please make sure to take the stool softeners or mildlaxatives as prescribed to get back to your normal routine. If you do not have a bowel movement formore than 2 days, please call the office. Follow up appointments: You will see Dr Zarco as indicated below with a chest Xray within one hour of the appointment. A letter will be mailed to you confirming your appointment information. Youshould arrange to see your primary care physician, in two weeks. Future Appointments Date Time Provider Department Center 08/17/2018 1:30 PM Lulu Reveles [facility] 08/17/2018 2:30 PM Kaity Fontaine MD [facility] documented in this encounter Medications at Time of Discharge Medication Sig Dispensed Refills Start Date End Date Magnesium Oxide 500 mg magnesium tablet Take 500 mg by mouth daily. 01/07/2016 citalopram (CeleXA) 20 mg Tablet Take by mouth. 08/13/2012 [employer] ULTRA [employer] Strip 1 strip by Other route 4 times daily. 4 11/23/2016 pantoprazole (PROTONIX) 40 mg Tablet, Delayed Release (E.C.) TAKE ONE TABLET BY MOUTH TWICE A DAY 98 07/26/2016 Diabetic Supplies, [employer]. Misc Form faxed to [employer] for pump supplies. 100 each 12 03/23/2015 losartan (COZAAR) 100 mg Tablet Take 50 mg by mouth daily. 08/11/2014 aspirin 81 mg EC tablet Take 81 mg by mouth daily. insulin lispro (HUMALOG) 100 unit/mL injection Inject 55-60 Units subcutaneously continuous. Via insulin pump insulin lispro (HumaLOG) Solution /01/07/2016 3 levothyroxine (SYNTHROID) 125 mcg Tablet TAKE [...] as of this encounter Progress Notes * Josee Martínez, IRONING WORKER - 06/24/2018 10:26 AM EDT Please see EDH for assessments. Patient successful with walking trial, maintaining room air sats above 88% after 300 feet. Patient cleared by MD for discharge home. AVS discussed with patient, and copy of discharge summary provided. Patient verbalized understanding and agreement with plan. All quest ions answered appropriately. Chest tube site dressing supplies provided, instructions provided. Patient verbalized understanding and comfort with dressing changes. BS prior to discharge 289, treated with 8 units of Humalog. Patient verbalized comfort with rechecking and managing blood sugars at home. Patient left facility via personal vehicle with friend. * Vinay Conley - 06/23/2018 9:37 AM EDT [facility] Department of Thoracic Surgery Inpatient Progress Note Patient Name: Jennifer Snyder Patient : 1960 Patient Patient Location: [address] [place] [address] Attending Surgeon: CÉSAR ZARCO ID: Jennifer Snyder is a 57 y.o. female who is 2 Days Post-Op s/p Right VATs, RLL wedge x2 24 Hour Events / Subjective: - NAEON, - Remains on O2 during the day and CPAP overnight - pain well controlled - R CT discontinued Vitals: Temp: [36.6 ??C (97.9 ??F)-37.4 ??C (99.3 ??F)] Heart Rate: [65-69] Resp: [16-17] BP: (120-137)/(40-63) SpO2: [81 %-93 %] Heart Rate from SpO2: [51 bpm-86 bpm] Wt & BMI By Encounter Date Admission (Current) from 06/21/[address] [place] [address] Office Visit from 06/04/2018 in Thoracic Surgery at [place] Weight 97 kg (213 lb 13.5 oz) 1 06/23/2018 0357 96.4 kg (212 lb 9.6 oz) 1 06/04/2018 1156 BMI 33.15 1 06/21/2018 1055 34 1 06/04/2018 1156 Physical Exam: Gen: NAD, pleasant, sitting in bed HEENT: normocephalic, atraumatic, EOMI, sclerae anicteric Neck: supple, trachea midline Card: RRR, no M/R/G appreciated Pulm: CTAB, no wheeze/ronchi/rales appreciated, non-labored breathing on 3L, right CT site with serous drainage Abd: soft, NT Ext: warm, dry, no edema Neuro: A&Ox3, CN II-XII grossly intact, nonfocal, conversant I/O: I/O last 3 completed shifts: In: 2312 [P.O.:1500; I.V.:812] Out: 2500 [Urine:2200; Other:300] Labs: Recent Results (from the past 72 hour(s)) EKG 12 Lead Result Value Ref Range Ventricular rate 58 BPM Atrial Rate 58 BPM P-R Interval 184 ms QRS Duration 88 ms Q-T Interval 432 ms QTC Calculated (Bezet) 424 ms Calculated P [place] 61 degrees Calculated R [place] 7 degrees Calculated T [place] 59 degrees INTERPRETATION Sinus bradycardia Otherwise normal ECG When compared with ECG of 14-NOV-2007 12:49, No significant change was found POCT Glucose Result Value Ref Range POC Glucose 157 65 - 199 mg/dL POCT Glucose Result Value Ref Range POC Glucose 193 65 - 199 mg/dL Surgical Pathology Report Result Value Ref Range Surgical Pathology Report [id number] Location: OR; OR22; A The signing pathologist has (i) examined the relevant preparation(s) for the specimen(s) and (ii) rendered or confirmed the diagnosis(es). . Frozen Section FROZEN SECTION DIAGNOSIS A - Right lower lobe wedge for frozen section - calcified nodules, favor old hyalinized granulomas 06/21/18 13:13 Electronically signed by: Jesusita Crowley DO Verified: 06/21/2018 Pathologist Performed at: -[facility], [place], [place] This intraoperative consultation should be interpreted as a preliminary diagnosis pending review of the entire specimen and special studies, if any. POCT Glucose Result Value Ref Range POC Glucose 233 (H) 65 - 199 mg/dL POCT Glucose Result Value Ref Range POC Glucose 205 (H) 65 - 199 mg/dL POCT Glucose Result Value Ref Range POC Glucose 150 65 - 199 mg/dL POCT Glucose Result Value Ref Range POC Glucose 116 65 - 199 mg/dL Basic Metabolic Panel (non-fasting) Result Value Ref Range Glucose Lvl 106 65 - 199 mg/dL BUN 26 (H) 8 - 18 mg/dL Creatinine 1.55 (H) 0.70 - 1.20 mg/dL Sodium 142 135 - 145 mmol/L Potassium 4.6 3.5 - 5.0 mmol/L Chloride 106 98 - 107 mmol/L CO2 24 22 - 31 mmol/L Anion Gap 12 5 - 15 mmol/L Calcium 8.8 8.5 - 10.5 mg/dL eGFR 36 (L) >=60 mL/min/1.73 m?? eGFR 42 (L) >=60 mL/min/1.73 m?? Hemogram Result Value Ref Range WBC 9.6 (H) 4.0 - 9.5 x10(3)/mcL RBC 3.87 (L) 4.00 - 5.21 x10(6)/mcL Hemoglobin 11.5 (L) 11.7 - 15.5 gm/dL Hematocrit 36.6 35.7 - 45.8 % MCV 94.6 (H) 82.6 - 94.4 fL MCH 29.7 27.1 - 32.0 pg MCHC 31.4 (L) 31.7 - 35.0 gm/dL Platelets 227 145 - 357 x10(3)/mcL RDWSD 46.9 (H) 37.0 - 46.0 fL RDWCV 13.5 11.5 - 14.1 % MPV 10.5 7.6 - 12.9 fL nRBC % Auto 0.0 % nRBC Abs Auto 0.000 0.000 - 0.000 x10(3)/mcL Differential, Automated Result Value Ref Range Neutrophils % 79.3 % Neutr Abs (ANC) 7.57 (H) 1.70 - 6.10 x10(3)/mcL Lymphocytes % 12.9 % Lymphocytes Abs 1.2 0.9 - 3.2 x10(3)/mcL Monocytes % 5.4 % Monocyte Abs 0.5 0.3 - 0.9 x10(3)/mcL Eosinophils % 1.8 % Eosinophils Abs 0.2 0.0 - 0.4 x10(3)/mcL Basophils % 0.3 % Basophils Abs 0.0 0.0 - 0.1 x10(3)/mcL Immature Gran % 0.30 % Leatha Gran Abs 0.03 0.00 - 0.04 x10(3)/mcL POCT Glucose Result Value Ref Range POC Glucose 98 65 - 199 mg/dL POCT Glucose Result Value Ref Range POC Glucose 136 65 - 199 mg/dL POCT Glucose Result Value Ref Range POC Glucose 174 65 - 199 mg/dL POCT Glucose Result Value Ref Range POC Glucose 183 65 - 199 mg/dL POCT Glucose Result Value Ref Range POC Glucose 162 65 - 199 mg/dL POCT Glucose Result Value Ref Range POC Glucose 125 65 - 199 mg/dL POCT Glucose Result Value Ref Range POC Glucose 121 65 - 199 mg/dL Diagnostics: CXR 06/22/18 No pneumothorax or other new findings. CXR 06/21/18: Cardiomegaly. Platelike atelectasis in the bilateral lower lung zones. Pulmonary edema. A right-sided chest tube is in place. No pneumothorax. Trace of bilateral pleural effusions suspected. Assessment: Jennifer Snyder is a 57 y.o. female who is 2 Days Post-Op s/p Right VATs, RLL wedge resection x2. Has persistent O2 requirement. Will continue aggressive pulmonary toilet today and wean as tolerated. Plan: Neuro: Tylenol rick, Oxy PRN Card: ASA, Coreg, Zocor, HDS, Monitor vital signs Pulm: acute pulmonary insufficiency secondary to lung surgery in the setting of baseline COPD, albuterol q6, ambulation, ISC, cough, deep breathing, Aerobika FENGI: regular diet, Colace, Senna, zofran PRN Renal/: Lasix 20 mg, repeat BMP, voiding, monitor urine output Heme: SQH ID: [place] Endo: home insulin pump, q4 finger sticks Other: [place] PPx: protonix, ambulation, ISC, cough, deep breathing Dispo: floor status, full code VINAY CONLEY MD 06/23/2018 Thoracic Surgery Service Pager [phone] Associated attestation - Pavan Soriano MD - 06/23/2018 5:32 PM EDT I have seen the patient and reviewed the resident's above history and I agree with the details as written. The assessment and plan were formulated in discussion with me and I agree with them as documented. Plan: Mrs Snyder is doing well with the exception of a couple of issues. She is still requiring oxygen and her cxr appears to demonstrated increased atelectasis. She was also leaking from her drain site which was reinforced. Will plan to give a dose of lasix for diruresis and monitor Cr for change. Pavan Soriano MD Thoracic Surgery * Joanna Medeiros, RN - 06/22/2018 6:38 PM EDT Walk test done by this RN, Pt on RA 80-81%, 2L 84-85%, 4L 88% all while ambulating with 1 SBA/walker. * Joanna Medeiros RN - 06/22/2018 3:47 PM EDT 1435 Patient admitted to 4W RM 418A from PACU, report received from TAMEKA Jung. Pt s/p R VATs, RLL wedge x2. CT removed, drsg with light faint SS drainage. Patient A&Ox4 upon admit - pt denied CP/SOB/N/V pain 10/17, HRR, Lungs with faint crackles posterior bases bilaterally - pt on 3L O2, hypoBS, voids, PPP, pt ambulated with FWW and 1 assist, now OOB in chair, using IS 750. Pt oriented to room, call light in reach, needs met. * Meeta Cuellar APRN - 06/22/2018 11:39 AM EDT [facility] Department of Thoracic Surgery Inpatient Progress Note Patient Name: Jennifer Snyder Patient : [id number] Patient Patient Location: [address] Attending Surgeon: CÉSAR ZARCO ID: Jennifer Snyder is a 57 y.o. female who is 1 Day Post-Op s/p Right VATs, RLL wedge x2 24 Hour Events / Subjective: - NAEON, breathing comfortably on 3L, AVSS - pain well controlled - R CT to wall suction with no air leak noted Vitals: Temp: [36.1 ??C (97 ??F)-37.2 ??C (99 ??F)] Heart Rate: [44-69] Resp: [8-18] BP: (101-135)/(43-95) SpO2: [89 %-99 %] Heart Rate from SpO2: [45 bpm-72 bpm] Wt & BMI By Encounter Date Admission (Current) from 06/21/2018 in PACU at [facility] Office Visit from 06/04/2018 in Thoracic Surgery at [place] Weight 96 kg (211 lb 11.2 oz) 1 06/21/2018 1055 96.4 kg (212 lb 9.6 oz) 1 06/04/2018 1156 BMI 33.15 1 06/21/2018 1055 34 1 06/04/2018 1156 Physical Exam: Gen: NAD, pleasant, sitting in bed HEENT: normocephalic, atraumatic, EOMI, sclerae anicteric Neck: supple, trachea midline Card: RRR, no M/R/G appreciated Pulm: CTAB, no wheeze/ronchi/rales appreciated, non-labored breathing on 3L, right CT: to -20 suction with no airleak appreciated Abd: soft, NT, BS+ Ext: warm, dry, no edema Neuro: A&Ox3, CN II-XII grossly intact, nonfocal, conversant I/O: I/O last 3 completed shifts: In: 1844 [P.O.:490; I.V.:1354] Out: 995 [Urine:605; Other:390] Chest tube: 390cc total, 250 cc overnight, SS Labs: Recent Results (from the past 72 hour(s)) EKG 12 Lead Result Value Ref Range Ventricular rate 58 BPM Atrial Rate 58 BPM P-R Interval 184 ms QRS Duration 88 ms Q-T Interval 432 ms QTC Calculated (Bezet) 424 ms Calculated P [place] 61 degrees Calculated R [place] 7 degrees Calculated T [place] 59 degrees INTERPRETATION Sinus bradycardia Otherwise normal ECG When compared with ECG of 14-NOV-2007 12:49, No significant change was found POCT Glucose Result Value Ref Range POC Glucose 157 65 - 199 mg/dL POCT Glucose Result Value Ref Range POC Glucose 193 65 - 199 mg/dL Surgical Pathology Report Result Value Ref Range Surgical Pathology Report [id number] Location: OR; OR22; A The signing pathologist has (i) examined the relevant preparation(s) for the specimen(s) and (ii) rendered or confirmed the diagnosis(es). . Frozen Section FROZEN SECTION DIAGNOSIS A - Right lower lobe wedge for frozen section - calcified nodules, favor old hyalinized granulomas 06/21/18 13:13 Electronically signed by: Jesusita Crowley DO Verified: 06/21/2018 Pathologist Performed at: -[facility]. [place], [place], [place] This intraoperative consultation should be interpreted as a preliminary diagnosis pending review of the entire specimen and special studies, if any. POCT Glucose Result Value Ref Range POC Glucose 233 (H) 65 - 199 mg/dL POCT Glucose Result Value Ref Range POC Glucose 205 (H) 65 - 199 mg/dL POCT Glucose Result Value Ref Range POC Glucose 150 65 - 199 mg/dL POCT Glucose Result Value Ref Range POC Glucose 116 65 - 199 mg/dL Basic Metabolic Panel (non-fasting) Result Value Ref Range Glucose Lvl 106 65 - 199 mg/dL BUN 26 (H) 8 - 18 mg/dL Creatinine 1.55 (H) 0.70 - 1.20 mg/dL Sodium 142 135 - 145 mmol/L Potassium 4.6 3.5 - 5.0 mmol/L Chloride 106 98 - 107 mmol/L CO2 24 22 - 31 mmol/L Anion Gap 12 5 - 15 mmol/L Calcium 8.8 8.5 - 10.5 mg/dL eGFR 36 (L) >=60 mL/min/1.73 m?? eGFR 42 (L) >=60 mL/min/1.73 m?? Hemogram Result Value Ref Range WBC 9.6 (H) 4.0 - 9.5 x10(3)/mcL RBC 3.87 (L) 4.00 - 5.21 x10(6)/mcL Hemoglobin 11.5 (L) 11.7 - 15.5 gm/dL Hematocrit 36.6 35.7 - 45.8 % MCV 94.6 (H) 82.6 - 94.4 fL MCH 29.7 27.1 - 32.0 pg MCHC 31.4 (L) 31.7 - 35.0 gm/dL Platelets 227 145 - 357 x10(3)/mcL RDWSD 46.9 (H) 37.0 - 46.0 fL RDWCV 13.5 11.5 - 14.1 % MPV 10.5 7.6 - 12.9 fL nRBC % Auto 0.0 % nRBC Abs Auto 0.000 0.000 - 0.000 x10(3)/mcL Differential, Automated Result Value Ref Range Neutrophils % 79.3 % Neutr Abs (ANC) 7.57 (H) 1.70 - 6.10 x10(3)/mcL Lymphocytes % 12.9 % Lymphocytes Abs 1.2 0.9 - 3.2 x10(3)/mcL Monocytes % 5.4 % Monocyte Abs 0.5 0.3 - 0.9 x10(3)/mcL Eosinophils % 1.8 % Eosinophils Abs 0.2 0.0 - 0.4 x10(3)/mcL Basophils % 0.3 % Basophils Abs 0.0 0.0 - 0.1 x10(3)/mcL Immature Gran % 0.30 % Leatha Gran Abs 0.03 0.00 - 0.04 x10(3)/mcL POCT Glucose Result Value Ref Range POC Glucose 98 65 - 199 mg/dL POCT Glucose Result Value Ref Range POC Glucose 136 65 - 199 mg/dL Diagnostics: CXR 06/22/18 No pneumothorax or other new findings. CXR 06/21/18: Cardiomegaly. Platelike atelectasis in the bilateral lower lung zones. Pulmonary edema. A right-sided chest tube is in place. No pneumothorax. Trace of bilateral pleural effusions suspected. Assessment: Jennifer Snyder is a 57 y.o. female who is 1 Day Post-Op s/p Right VATs, RLL wedge resection x2. Plan to water seal the CT this AM and consider removal later this AM if output low and no air leak present. Plan: Neuro: Tylenol rick, Oxy PRN Card: ASA, Coreg, Zocor, HDS, Monitor vital signs Pulm: R CT to water seal this AM, acute pulmonary insufficiency secondary to lung surgery, albuterol q6, ambulation, ISC, cough, deep breathing FENGI: regular diet, Colace, Senna, zofran PRN, monitor for return of bowel function Renal/: voiding, monitor urine output Heme: SQH ID: [place] Endo: SSI, q4 finger sticks Other: [place] PPx: protonix, ambulation, ISC, cough, deep breathing Dispo: Seen in PACU, floor status, full code Meeta Cuellar, STENCILER 06/22/2018 Thoracic Surgery Service Pager [phone] * Nathaly Castro RN - 06/22/2018 11:29 AM EDT Break coverage for Diana Kent RN Hand off received. O2 sat staying around 88%, with desats as low as 83%. On 2 liters NC. Lungs have crackles bilat 2/3up * Fabiana Kent RN - 06/22/2018 7:45 AM EDT 0725: Report received from TAMEKA Jorge. Patient resting comfortably in bed. Chest tube to low continuous suction. Right chest dressings CDI. Up to bedside commode with 1 person assist. Tolerating breakfast well. 0900: Team at bedside 1200: MD Middleton at bedside. Made aware of coarse LS post water seal. Chest removed by at bedside. 1315: Repeat chest x ray completed 1415: Report called to TAMEKA Marshall * Shiv Middleton MD - 06/21/2018 5:30 PM EDT Post-Operative Check Jennifer Snyder is a 57 y.o. female s/p R VATS wedge resection. Procedure(s): BRONCHOSCOPY, DIAGNOSTIC (WRVU 2.78) NERVE BLOCK, INTERCOSTAL NERVE, MULTIPLE (WRVU 1.68) @THORACOSCOPY, SURG; W/THERAPEUTIC WEDGE RESECTION, INIT UNILATERAL (WRVU 14.5) S: No nausea/vomiting, SOB, pain well controlled, offers no complaints. Reports mild pain w/ deep breathing. O: Temp: [36.1 ??C (97 ??F)-36.6 ??C (97.9 ??F)] Heart Rate: [44-61] Resp: [12-18] BP: (122-164)/(43-95) SpO2: [92 %-99 %] Heart Rate from SpO2: [45 bpm-51 bpm] No intake/output data recorded. I/O this shift: In: 790 [P.O.:90; I.V.:700] Out: 120 [Other:120] Recent Results (from the past 24 hour(s)) POCT Glucose Result Value Ref Range POC Glucose 157 65 - 199 mg/dL POCT Glucose Result Value Ref Range POC Glucose 193 65 - 199 mg/dL Surgical Pathology Report Result Value Ref Range Surgical Pathology Report [id number] Location: OR; OR22; A The signing pathologist has (i) examined the relevant preparation(s) for the specimen(s) and (ii) rendered or confirmed the diagnosis(es). . Frozen Section FROZEN SECTION DIAGNOSIS A - Right lower lobe wedge for frozen section - calcified nodules, favor old hyalinized granulomas 06/21/18 13:13 Electronically signed by: Jesusita Crowley DO Verified: 06/21/2018 Pathologist Performed at: -[facility] [place], [place], [place] This intraoperative consultation should be interpreted as a preliminary diagnosis pending review of the entire specimen and special studies, if any. POCT Glucose Result Value Ref Range POC Glucose 233 (H) 65 - 199 mg/dL POCT Glucose Result Value Ref Range POC Glucose 205 (H) 65 - 199 mg/dL POCT Glucose Result Value Ref Range POC Glucose 150 65 - 199 mg/dL Physical Exam Gen: A0x3, NAD, resting comfortably CVS: RRR Resp: CTAB, breathing comfortably on 3L NC, chest tube site c/d/i, no air leak seen, to -20 suction Abd: soft, nontender, nondistended Ext: SCDs in place, WWP AP Jennifer Snyder is a 57 y.o. female s/p R VATS wedge resection currently in stable condition and recovering well - continue post operative plan per primary team - pain well controlled - hemodynamically stable Shiv Middleton MD 06/21/2018 * Lulu Alejo RN - 06/21/2018 3:21 PM EDT Pt out to pacu on a bed from the OR all alarms on and audible. Chest tube in place in right chest wall connected to 20cm wall suction. No crepitus noted pt states no shortness of breath. Vital signs stable. Iv site flushed and patent. Iv fluids infusing. Bladder scanned for 341. documented in this encounter H&P Notes * CrescenciojuanVinay cox Lisa - 06/21/2018 11:16 AM EDT Jennifer Snyder is a 57-year-old woman with COPD and peripheral vascular disease with a number of small lung nodules who presents for wedge possible lobectomy. The patient's history and physical exam have been reviewed and completed. There has been no interval change from that of the pre-operative history and physical exam done within the last 30 days. documented in this encounter Miscellaneous Notes * Plan of Care - Nam Eng RN - 06/23/2018 5:21 PM EDT Problem: Patient Care Overview Goal: Plan of Care Review Outcome: Ongoing (Interventions Implemented as Appropriate) 06/23/18 0950 Coping/Psychosocial Plan Of Care Reviewed With patient OUTCOME EVALUATION NOTE: OUTCOME SUMMARY: Pt greeted and identified. She is pleasant and cooperative. Please see EDH for assessments. r s/p chest tube dressing changed for mod amt serosang drainage this AM. At predent remains CD&I. Please see EDH for assessments. Remains on 2l/NC to keep sats above 88%. Amb in hallway long distances X3 this shift, did well, no c/o SOB. Has good cough effort, using IS to 750 cc. Amb ~75 ft on RA keeping sats at 88%, however sats dropped to 82% after 150 ft, O2 at 3L applied to complete walk. Pt w/o c/o SOB and able to carry on a conversation w/o dyspnea. Nebs as ordered. Declines need for prn pain meds This shift. Wears C-Pap at night w/ O2 via adapter. PLAN MOVING FORWARD: As above, cont good pulm toilet, cont to amb, watch/monitor sats. INDIVIDUALIZED FALL PREVENTION INTERVENTIONS: Patient-specific fall risk factors per assessment: [current deficits]: Low risk Assistance [level of assistance required for transfers and ambulation]: Independent but w/ O2 Supervision [direct monitoring required during toileting and ADLs]: Independent, but w/ O2 Surveillance [continuous indirect monitoring]: Hourly rounding, masimo, skin surveillance, call leggett with in reach, bed near nurses station Patient-specific fall prevention interventions for sensory deficits provided, if applicable: [X] No CPG GOAL OUTCOME EVALUATION: Goal: Fall Prevention-Safe Patient Handling Outcome: Ongoing (Interventions Implemented as Appropriate) 06/23/18 0730 06/23/18 0812 06/23/18 1200 Vazquez Fall Risk History of Falling -- 0 -- Secondary Diagnosis -- 15 -- Ambulatory Aids -- 0 -- Intravenous Therapy/Heparin/Saline Lock -- 20 -- Gait/Transferring -- 0 -- Mental Status -- 0 -- Score -- 35 -- OTHER Vaqzuez Fall Risk -- Med -- Restraint Interventions Safety Promotion/Fall Prevention activity supervised;fall prevention program maintained;nonskid shoes/slippers when out of bed;safety round/check completed -- -- Positioning Body Position supine, head elevated -- -- Activity Activity Type -- -- ambulated in wheeler Activity Assistance Provided -- -- assistance, stand-by Assistive Device Utilized -- -- oxygen Goal: Infection Control Outcome: Ongoing (Interventions Implemented as Appropriate) 06/23/1872906/23/18 0812 Safety Interventions Isolation Precautions standard precautions maintained -- Infection Prevention environmental surveillance performed;rest/sleep promoted -- Coping Strategies Supportive Measures -- active listening utilized;self-care encouraged;verbalization of feelings encouraged;positive reinforcement provided * Plan of Care - Huan Patterson OT - 06/23/2018 2:35 PM EDT Occupational Therapy Evaluation Pertinent History of Current Problem: Jennifer Snyder is a 57 y.o. female who is 2 Days Post-Op s/p Right VATs, RLL wedge x2. Precautions Comments: (P) O2 2 liters Assessment: Pt has been seen for occupational therapy evaluation, please refer to associated flowsheet data listed below for details. Jennifer Snyder presents with the following performance skill deficits and client factors: need for O2 and higher level activity tolerance. These performance deficits have led to activity limitations and participation restrictions in the following areas of occupation: home management, roles/routines, and community mobility. However, despite the deficits listed above pt demonstrates the ability to perform mobility and ADLS with 2 liters of O2 and Mod I. Patientis receptive to education regarding energy conservation and has good assistance at home for IADLS. Anticipate that pt will return home with assistance once medically ready. Do not anticipate further OT needs while hospitalized. Staff Recommendations: Encourage OOB activity and participation in all self care tasks Anticipated Discharge Disposition: (P) home with assist Pager: [phone] HUAN PATTERSON OT 06/23/2018 Occupational Therapy Rehabilitation Department 2017 OT Evaluation Code Rationale: ?? Diagnosis & Pertinent Co-Morbidities affecting Plan of Care: see PMHx ?? Occupational Profile & Client History: Brief Expanded Extensive x ?? Assessment of Occupational Performance: 1-3 performance deficits x 3-5 performance deficits 5 + performance deficits ?? Clinical Decision Making: Low Moderate High x Clinical decision making of low complexity using standardized patient assessment instrument and measurable assessment of functional outcome. 06/23/18 0950 Rehab Evaluation Document Type evaluation Total Evaluation Minutes, Occupational Therapy 12 (minimal complex evaluation) Patient Effort good Symptoms Noted During/After Treatment none General Information Patient Profile Review yes Patient/Family/Caregiver Comments/Observations How is my oxygen? Pertinent History of Current Problem Jennifer Snyder is a 57 y.o. female who is 2 Days Post-Op s/pRight VATs, RLL wedge x2. Precautions Comments O2 2 liters Treatment Number OT 1 Living Environment Patient population Adult Living Environment Living Environment Comment Pt lives with boyfriend. Patient has a walk in shower and has 24/7 assistance. Functional Level Prior Prior Functional Level Comment Pt independent with ADLS and IADLS. Patient driving and working. Vital Signs SpO2 (!) 89 % O2 Flow Rate (L/min) 2 L/min O2 Device NC Vision Assessment/Intervention Additional Documentation (WFL) Cognitive Assessment/Intervention Additional Documentation (WNL) Pain Scale/Rating Pain Assessment Scale (minimal discomfort) ROM (Range of Motion) Additional Documentation General Assessment (Group) General Range of Motion Detail B UE WNL MMT (Manual Muscle Testing) Additional Documentation General Assessment (Group) General Manual Muscle Testing Assessment Detail B UE WNL Mobility Assessment/Training Additional Documentation Transfer Assessment/Treatment (Group);Gait Assessment/Treatment (Group) Transfer Assessment/Treatment Bed-Chair Lockhart (Transfers) conditional independence Chair-Bed Lockhart (Transfers) conditional independence Vfo-Vopcj-Cqr Assistive Device (Transfers) (2 liters O2 and dropping Ow to 89 percent) Lockhart (Sit-Stand Transfers) independent Lockhart (Stand-Sit Transfers) independent Gait Assessment/Treatment Lockhart (Gait) conditional independence Assistive Device (Gait) (2 liters O2) Distance in Feet (Gait) 150 ADL Assessment/Intervention Additional Documentation Bathing Assessment/Training (Group);Lower Body Dressing Assessment/Training (Group) Bathing Assessment/Training Comment (Bathing) Discussed use of shower chair and energy conservation. Lower Body Dressing Assessment/Training Position (LB Dressing) sitting;standing Lockhart Level (LB Dressing) conditional independence Coping Observed Emotional State accepting Plan of Care Review Plan Of Care Reviewed With patient Clinical Impression Criteria for Skilled Therapeutic Interventions Met no;treatment indicated Therapy Frequency evaluation only Anticipated Equipment Needs at Discharge (shower chair) Anticipated Discharge Disposition home with assist * Op Note - César Zarco MD - 06/21/2018 2:30 PM EDT [facility] Operative [place] Patient Name: Jennifer Snyder : [id number] MR#: [id number] Case Date: 06/21/2018 Surgeon: Surgeon(s) and Role: * César Zarco MD - Primary * Vinay Conley MD - Resident Preoperative diagnosis: lung nodule Postoperative diagnosis: lung nodule Procedure(s) (LRB): BRONCHOSCOPY, DIAGNOSTIC (WRVU 2.78) (N/A) NERVE BLOCK, INTERCOSTAL NERVE, MULTIPLE (WRVU 1.68) (Right) @THORACOSCOPY, SURG; W/THERAPEUTIC WEDGE RESECTION, INIT UNILATERAL (WRVU 14.5) (Right) Anesthesia: General Estimated Blood Loss: * No values recorded between 06/21/2018 12:10 PM and 06/21/2018 1:46 PM * Specimens removed during surgery: Order Name Source Comment Collection Info Order Time SPECIMEN [place] [id number] lung nodule Right Lower Lobe Wedge excision YES, Please perform frozen section No 06/21/2018 12:43 PM Number of tissue samples (in container) 1 Time specimen removed from patient: 12:42 PM SPECIMEN TO PATHOLOGY Additional Right Lower Lobe Wedge [id number] OR 22 lung nodule Addiotnal Right Lower Lobe Wedge excision No 06/21/2018 1:18 PM Time specimen removed from patient: 1:17 PM Number of tissue samples (in container) 1 Drains: 28 Fijian chest tube, right Surgical Closure: Primary Closure - skin incision is completely closed without any wires, janet, drains or other devices Disposition: awakened from anesthesia, extubated and taken to the recovery room in a stable condition, having suffered no apparent untoward event. Condition: doing well without problems (Please see the Surgical Encounter Summary for any Implant and Specimen details pertinent to this patient.) HPI/Surgical Indications: 57-year-old woman with a history of tobacco use, recent pneumonia, and innumerable bilateral lung nodules, with a dominant 9 mm right lower lobe nodule the patient was brought to the operating room and placed on the table in supine position. General anesthesia was induced Procedure Description: And a double-lumen endotracheal tube was placed. The position of the tube was confirmed bronchoscopically, and diagnostic bronchoscopy was performed. The examined airway was anatomically normal, without endobronchial lesions or excessive secretions. The tube was secured and the patient was turned into the left lateral decubitus, right side up position. Chest was prepped anddraped in the standard sterile fashion and a hard stop surgical timeout confirmed the patient's identity as well as the nature and laterality of the procedure to be performed. The right hemithorax was then entered via an 11 mm incision in the eighth intercostal space at the posterior axillary line.Lung isolation was adequate. A second 13 mm incision was placed posteriorly, and the lung was assessed. As expected, there were innumerable small firm nodules detectable on the surface of the lung. An additional third incision was placed directly over the fissure, and a wound protector was placed. The lung was carefully palpated. Numerous subcentimeter nodules were present. A single dominant nodule could not be readily identified. A portion of the lung parenchyma incorporating the apparent location of the most prominent nodule based on the CT scan with identified and grasped with a [place] clamp. This area was elevated, and excised with a series of firings of purple loads of the thoracoscopicstapler. A wedge resection was removed and sent for frozen section analysis. While awaiting the results of this analysis, we further carefully palpated the lung. Adhesions between the lower and middle lobe and the diagonal fissure, and lower and upper lobes were divided with the electrocautery. The inferior pulmonary ligament was divided with the electrocautery to provide additional mobilization of the lower lobe. Extensive palpation failed to diagnose any additional concerning nodules. At thispoint the frozen section returned negative for malignancy. An additional wedge of tissue incorporating more of the smaller nodules was obtained. This was sent as additional right lower lobe wedge resection. Rib blocks were then placed with liposomal bupivacaine beginning at about the 10th intercostal space and coming up to the third intercostal space; additional liposomal bupivacaine was injecteddirectly into the incision sites. A 28 Fijian chest tube was placed through the anterior inferior port site, and after the wound protector was removed hemostasis was achieved with the electrocautery.The lung was allowed to reexpand under direct vision and the patient was then allowed to emerge from anesthesia. She was extubated in the operating room without incident and was transported to the [facility] condition. All of the sponge, needle and instrument counts were correct, and is the attending surgeon I was present scrubbed at the bedside throughout the case. CÉSAR ZARCO MD 06/21/2018 * Brief Op Note - Vinay Conley - 06/21/2018 2:15 PM EDT Brief Operative Note Patient Name: Jennifer Snyder : [id number] MR#: [id number] Case Date: 06/21/2018 Surgeon: Surgeon(s) and Role: * César Zarco MD - Primary * Vinay Conley MD - Resident Preoperative diagnosis: lung nodule Postoperative diagnosis: lung nodule Procedure(s) (LRB): BRONCHOSCOPY, DIAGNOSTIC (WRVU 2.78) (N/A) NERVE BLOCK, INTERCOSTAL NERVE, MULTIPLE (WRVU 1.68) (Right) @THORACOSCOPY, SURG; W/THERAPEUTIC WEDGE RESECTION, INIT UNILATERAL (WRVU 14.5) (Right) Anesthesia: General Findings: normal bronchoscopy, Right VATs: multiple sub centimeter Right lower lobe nodules palpated. Sent wedge of a nodule on the Lower lobe that was negative for malignancy. Additional more posterior wedge sent for permanent pathology. Complications: none Estimated Blood Loss: * No values recorded between 06/21/2018 12:10 PM and 06/21/2018 1:46 PM * Specimens removed during surgery: Order Name Source Comment Collection Info Order Time SPECIMEN TO [place] [id number] lung nodule Right Lower Lobe Wedge excision YES, Please perform frozen section No 06/21/2018 12:43 PM Number of tissue samples (in container) 1 Time specimen removed from patient: 12:42 PM SPECIMEN TO PATHOLOGY Additional Right Lower Lobe Wedge [id number] OR 22 lung nodule Addiotnal Right Lower Lobe Wedge excision No 06/21/2018 1:18 PM Time specimen removed from patient: 1:17 PM Number of tissue samples (in container) 1 Fluids: Intraprocedure Crystalloid Total lactated ringers infusion Volume (mL) 700 mL PRBCs: none (See Anesthesia Record/Report for Other Blood Products) Urine Output: (no urine output recorded) Drains: Right 28 Fr chest tube Disposition: awakened from anesthesia, extubated and taken to the recovery room in a stable condition, having suffered no apparent untoward event. Condition: doing well without problems (Please see the Surgical Encounter Summary for any Implant and Specimen details pertinent to this patient.) Infection Bundle used? N/A documented in this encounter Plan of Treatment Upcoming Encounters Date Type Department Care Team (Late st Contact Info) Description 12/19/2023 1:00 PM EDT Tech [place] [phone] Marguerite Macias 12/19/2023 3:00 PM EDT Office [place] [phone] Gardenia Golden, STENCILER [facility] [address] VASCULAR SURGERY [place], [place] [id number] 01/29/2024 1:[address] [place] [place] [phone] César Zarco MD [facility] [place] [address] 01/29/2024 2:30 PM EDT Office [place] [phone] César Zarco MD [facility] DR THORACIC SURGERY [place], [place] [phone] documented as of this encounter Procedures Procedure Name Priority Date/Time Associated Diagnosis Comments POCT GLUCOSE Routine 06/24/2018 11:09 AM EDT POCT GLUCOSE Routine 06/24/2018 7:33 AM EDT XR CHEST PA AND LATERAL Routine 06/24/2018 6:51 AM EDT BASIC METABOLIC PANEL Routine 06/24/2018 4:11 AM EDT POCT GLUCOSE Routine 06/24/2018 4:09 AM EDT POCT GLUCOSE Routine 06/23/2018 11:52 PM EDT BASIC METABOLIC PANEL Routine 06/23/2018 7:43 PM EDT POCT GLUCOSE Routine 06/23/2018 7:22 PM EDT POCT GLUCOSE Routine 06/23/2018 4:34 PM EDT POCT GLUCOSE Routine 06/23/2018 1:38 PM EDT HEMOGRAM STAT 06/23/2018 10:12 AM EDT DIFFERENTIAL, AUTOMATED STAT 06/23/2018 10:12 AM EDT CBC (WITH DIFF) STAT 06/23/2018 10:12 AM EDT BASIC METABOLIC PANEL STAT 06/23/2018 10:12 AM EDT POCT GLUCOSE Routine 06/23/2018 3:50 AM EDT POCT GLUCOSE Routine 06/22/2018 11:16 PM EDT POCT GLUCOSE Routine 06/22/2018 8:47 PM EDT POCT GLUCOSE Routine 06/22/2018 4:29 PM EDT XR CHEST PA AND LATERAL Routine 06/22/2018 1:35 PM EDT POCT GLUCOSE Routine 06/22/2018 12:22 PM EDT POCT GLUCOSE Routine 06/22/2018 7:52 AM EDT XR CHEST PA AND LATERAL Routine 06/22/2018 6:44 AM EDT POCT GLUCOSE Routine 06/22/2018 4:44 AM EDT HEMOGRAM Routine 06/22/2018 4:40 AM EDT DIFFERENTIAL, AUTOMATED Routine 06/22/2018 4:40 AM EDT CBC (WITH DIFF) Routine 06/22/2018 4:40 AM EDT BASIC METABOLIC PANEL Routine 06/22/2018 4:40 AM EDT POCT GLUCOSE Routine 06/22/2018 12:03 AM EDT XR CHEST PA AND LATERAL STAT 06/21/2018 6:20 PM EDT POCT GLUCOSE Routine 06/21/2018 4:48 PM EDT POCT GLUCOSE Routine 06/21/2018 2:10 PM EDT THORACOSCOPY, SURG; W/THERAPEUTIC WEDGE RESECTION, INIT UNILATERAL Routine 06/21/2018 1:58 PM EDT Right lower lobe pulmonary nodule POCT GLUCOSE Routine 06/21/2018 1:37 PM EDT SPECIMEN TO PATHOLOGY Routine 06/21/2018 1:18 PM EDT SPECIMEN TO PATHOLOGY STAT 06/21/2018 12:43 PM EDT SURGICAL PATHOLOGY REPORT Routine 06/21/2018 12:42 PM EDT POCT GLUCOSE Routine 06/21/2018 12:22 PM EDT NERVE BLOCK, INTERCOSTAL NERVE, MULTIPLE Routine 06/21/2018 12:11 PM EDT Right lower lobe pulmonary nodule @THORACOSCOPY, SURG; W/THERAPEUTIC WEDGE RESECTION, INIT UNILATERAL (WRVU 14.5) 06/21/2018 11:37 AM EDT Right lower lobe pulmonary nodule NERVE BLOCK, INTERCOSTAL NERVE, MULTIPLE (WRVU 0.5) 06/21/2018 11:37 AM EDT Right lower lobe pulmonary nodule BRONCHOSCOPY, DIAGNOSTIC (WRVU 2.53) 06/21/2018 11:37 AM EDT Right lower lobe pulmonary nodule POCT GLUCOSE Routine 06/21/2018 11:20 AM EDT EKG 12-LEAD Routine 06/21/2018 11:05 AM EDT PAD (peripheral artery disease) 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 Stenosis of left carotid artery Obesity with serious comorbidity, unspecified classification, unspecified obesity type Hypertension, unspecified type BRONCHOSCOPY,DIAGNOS TIC Routine 06/21/2018 10:35 AM EDT Right lower lobe pulmonary nodule documented in this encounter Results * (ABNORMAL) POCT Glucose (06/24/2018 11:09 AM EDT) Glucose, POC 289(H) 65 - 199 mg/dL [facility] Comment: Supplemental ranges: <140 mg/dL before meals <180 mg/dL all other times of the day Blood specimen (specimen) 06/24/2018 11:09 AM EDT 06/24/2018 11:09 AM EDT César Zarco MD POINT OF CARE TE ST ORDERABLES Performing Organization Address [facility] Co de Phone Number [facility] [place] [address] * POCT Glucose (06/24/2018 7:33 AM EDT) Glucose, POC 128 65 - 199 mg/dL [facility] Comment: Supplemental ranges: <140 mg/dL before meals <180 mg/dL all other times of the day Blood specimen (specimen) 06/24/2018 7:33 AM EDT 06/24/2018 7:33 AM EDT César Zarco MD POINT OF CARE TE ST ORDERABLES Performing Organization Address City/[facility] Co de Phone Number [facility] [place] [address] * XR Chest PA & Lateral (Generic) (06/24/2018 6:51 AM EDT) Anatomical Region Laterality Modality Chest N/A Digital Radiogra phy Narrative 06/24/2018 9:01 AM EDT EXAMINATION: XR CHEST PA AND LATERAL (GENERIC) CLINICAL HISTORY: S/P R VATS lung biopsy TECHNIQUE: Frontal and lateral views of the chest COMPARISON: 06/22/2018 FINDINGS: Cardiomediastinal contours are within normal limits. Streaky densities in the bilateral infrahilar regions are again noted, slightly improved. Small bilateral pleural effusions have improved. Thank you for letting us participate in the care of this patient. For questions regarding this report, please contact the number below. ? Procedure Note Elvira Diehl MD - 06/24/2018 EXAMINATION: XR CHEST PA AND LATERAL (GENERIC) CLINICAL HISTORY: S/P R VATS lung biopsy TECHNIQUE: Frontal and lateral views of the chest COMPARISON: 06/22/2018 FINDINGS: Cardiomediastinal contours are within normal limits. Streaky densities in the bilateral infrahilar regions are again noted,slightly improved. Small bilateral pleural effusions have improved. Thank you for letting us participate in the care of this patient. Forquestions regarding this report, please contact the number below. César Zarco MD IMG DX ORDERABLE S * (ABNORMAL) Basic Metabolic Panel (non-fasting) (06/24/2018 4:11 AM EDT) Glucose 127 65 - 199 mg/dL [facility] Comment:Diabetes: >=200 mg/d L plus symptoms Blood Urea Nitrogen 32(H) 8 - 18 mg/dL [facility] Creatinine 1.75(H) 0.70 - 1.20 mg/dL [facility] Sodium 142 135 - 145 mmol/L [facility] Potassium 4.1 3.5 - 5.0 mmol/L [facility] Comment: Please note: ??Patients with WBC >100,000 may have falsely elevated Potassium levels. ??For accurate Potassium quantification in these patients send serum separator tube (gold top) for subsequent determinations. ??Contact the Clinical Chemistry Laboratory if there are any questions. Chloride 107 98 - 107 mmol/L [facility] Carbon Dioxide 23 22 - 31 mmol/L [facility] Anion Gap 12 5 - 15 mmol/L [facility] Calcium 8.7 8.5 - 10.5 mg/dL [facility] Est Glomerular Filtration Rate 31(L) >=60 mL/min/1. 73 m?? [facility] Comment: The eGFR was calculated using the CKD-EPI equation. As with all creatinine based estimates of kidney function, eGFR values calculated with the CKD-EPI equation are not accurate in patients with acute kidney failure, extremes of body mass or the acutely ill. [email or web address] eGFR 36(L) >=60 mL/min/1. 73 m?? [facility] Comment: The eGFR was calculated using the CKD-EPI equation. As with all creatinine based estimates of kidney function, eGFR values calculated with the CKD-EPI equation are not accurate in patients with acute kidney failure, extremes of body mass or the acutely ill. [email or web address] Blood specimen (specimen) 06/24/2018 4:11 AM EDT 06/24/2018 4:46 AM EDT Narrative Resulting Agency Comment Spec In Lab César Zarco MD CHEMISTRY ORDERA BLES [facility] [place] [address] * POCT Glucose (06/24/2018 4:09 AM EDT) Glucose, POC 129 65 - 199 mg/dL [facility] Comment: Supplemental ranges: <140 mg/dL before meals <180 mg/dL all other times of the day Blood specimen (specimen) 06/24/2018 4:09 AM EDT 06/24/2018 4:09 AM EDT César Zarco MD POINT OF CARE TE ST ORDERABLES [facility] [place] [address] * POCT Glucose (06/23/2018 11:52 PM EDT) Glucose, POC 193 65 - 199 mg/dL [facility] Comment: Supplemental ranges: <140 mg/dL before meals <180 mg/dL all other times of the day Blood specimen (specimen) 06/23/2018 11:52 PM EDT 06/23/2018 11:52 PM EDT César Zarco MD POINT OF CARE TE ST ORDERABLES [facility] [place] [address] * (ABNORMAL) Basic Metabolic Panel (non-fasting) (06/23/2018 7:43 PM EDT) Glucose 132 65 - 199 mg/dL [facility] Comment:Diabetes: >=200 mg/d L plus symptoms Blood Urea Nitrogen 35(H) 8 - 18 mg/dL [facility] Creatinine 1.88(H) 0.70 - 1.20 mg/dL [facility] Sodium 142 135 - 145 mmol/L [facility] Potassium 3.9 3.5 - 5.0 mmol/L [facility] Comment: Please note: ??Patients with WBC >100,000 may have falsely elevated Potassium levels. ??For accurate Potassium quantification in these patients send serum separator tube (gold top) for subsequent determinations. ??Contact the Clinical Chemistry Laboratory if there are any questions. Chloride 106 98 - 107 mmol/L [facility] Carbon Dioxide 23 22 - 31 mmol/L [facility] Anion Gap 13 5 - 15 mmol/L [facility] Calcium 9.0 8.5 - 10.5 mg/dL [facility] Est Glomerular Filtration Rate 29(L) >=60 mL/min/1. 73 m?? [facility] Comment: The eGFR was calculated using the CKD-EPI equation. As with all creatinine based estimates of kidney function, eGFR values calculated with the CKD-EPI equation are not accurate in patients with acute kidney failure, extremes of body mass or the acutely ill. [email or web address] eGFR 33(L) >=60 mL/min/1. 73 m?? [facility] Comment: The eGFR was calculated using the CKD-EPI equation. As with all creatinine based estimates of kidney function, eGFR values calculated with the CKD-EPI equation are not accurate in patients with acute kidney failure, extremes of body mass or the acutely ill. [email or web address] Blood specimen (specimen) 06/23/2018 7:43 PM EDT 06/23/2018 7:48 PM EDT Narrative Resulting Agency Comment Spec In Lab César Zarco MD CHEMISTRY ORDERA BLES Performing Organization Address [facility]/ZIP Co de Phone Number [facility] [place] [address] * POCT Glucose (06/23/2018 7:22 PM EDT) Glucose, POC 165 65 - 199 mg/dL [facility] Comment: Supplemental ranges: <140 mg/dL before meals <180 mg/dL all other times of the day Blood specimen (specimen) 06/23/2018 7:22 PM EDT 06/23/2018 7:22 PM EDT César Zarco MD POINT OF CARE TE ST ORDERABLES [facility] [place] [address] * POCT Glucose (06/23/2018 4:34 PM EDT) Glucose, POC 156 65 - 199 mg/dL [facility] Comment: Supplemental ranges: <140 mg/dL before meals <180 mg/dL all other times of the day Blood specimen (specimen) 06/23/2018 4:34 PM EDT 06/23/2018 4:34 PM EDT César Zarco MD POINT OF CARE OSMANY ST ORDERABLES [facility] [place] [address] * (ABNORMAL) POCT Glucose (06/23/2018 1:38 PM EDT) [facility] Glucose, POC 226(H) 65 - 199 mg/dL [facility] Comment: Supplemental ranges: <140 mg/dL before meals <180 mg/dL all other times of the day Blood specimen (specimen) 06/23/2018 1:38 PM EDT 06/23/2018 1:38 PM EDT César Zarco MD POINT OF CARE OSMANY ST ORDERABLES Performing Organization Address City/[facility] Co de Phone Number [facility] [place] [address] * (ABNORMAL) Differential, Automated (06/23/2018 10:12 AM EDT) [facility] Neutrophil % 78.2 % [facility] Neutrophil Absolute 7.62(H) 1.70 - 6.10 x10(3)/mc L [facility] Lymph % 9.2 % [facility] Lymphocytes Abs 0.9 0.9 - 3.2 x10(3)/mc L [facility] Monocyte % 5.9 % [facility] Monocyte Abs 0.6 0.3 - 0.9 x10(3)/mc L [facility] Eos % 6.2 % [facility] Eosinophils Abs 0.6(H) 0.0 - 0.4 x10(3)/mc L [facility] Basophil % 0.3 % [facility] Baso Absolute 0.0 0.0 - 0.1 x10(3)/mc L [facility] Immature Gran % 0.20 % [facility] Comment: Immature granulocytes(IG's)percentage and absolute count will include metamyelocytes, myelocytes, and promyelocytes. Blood smears from CBCs yielding IG's will be scanned manually for concordance. If this scan disagrees with the automated IG or if promyelocytes are noted, a manual differential will be performed. Immature Gran Absolute 0.02 0.00 - 0.04 x10(3)/ L [facility] Blood specimen (specimen) 06/23/2018 10:12 AM EDT 06/23/2018 10:27 AM EDT Narrative Resulting Agency Comment Spec In Lab Vinay Conley MD HEMATOLOGY ORDERA BLES [facility] [place] [address] * (ABNORMAL) Hemogram (06/23/2018 10:12 AM EDT) White Blood Cell 9.8(H) 4.0 - 9.5 x10(3)/[facility] Red Blood Cell 3.71(L) 4.00 - 5.21 x10(6)/mc L [facility] Hemoglobin 11.2(L) 11.7 - 15.5 gm/dL [facility] Hematocrit 35.4(L) 35.7 - 45.8 % [facility] Mean Cell Volume 95.4(H) 82.6 - 94.4 fL [facility] Mean Cell Hemoglobin 30.2 27.1 - 32.0 pg [facility] Mean Cell Hemoglobin Concentration 31.6(L) 31.7 - 35.0 gm/dL [facility] Platelet 214 145 - 357 x10(3)/[facility] RDW Standard Deviation 48.0(H) 37.0 - 46.0 fL [facility] RDW coefficient of variation 13.6 11.5 - 14.1 % [facility] Mean Platelet Volume 10.5 7.6 - 12.9 fL [facility] NRBC% auto 0.0 % [facility] NRBC Absolute 0.000 0.000 - 0.000 x10(3)/mc L [facility] Blood specimen (specimen) 06/23/2018 10:12 AM EDT 06/23/2018 10:27 AM EDT Narrative Resulting Agency Comment Spec In Lab Vinay Conley MD HEMATOLOGY ORDERA BLES [facility] [place] [address] * (ABNORMAL) Basic Metabolic Panel (non-fasting) (06/23/2018 10:12 AM EDT) Glucose 187 65 - 199 mg/dL [facility] Comment:Diabetes: >=200 mg/d L plus symptoms Blood Urea Nitrogen 33(H) 8 - 18 mg/dL [facility] Creatinine 1.92(H) 0.70 - 1.20 mg/dL [facility] Sodium 139 135 - 145 mmol/L [facility] Potassium 4.4 3.5 - 5.0 mmol/L [facility] Comment: Please note: ??Patients with WBC >100,000 may have falsely elevated Potassium levels. ??For accurate Potassium quantification in these patients send serum separator tube (gold top) for subsequent determinations. ??Contact the Clinical Chemistry Laboratory if there are any questions. Chloride 106 98 - 107 mmol/L [facility] Carbon Dioxide 22 22 - 31 mmol/L [facility] Anion Gap 11 5 - 15 mmol/L [facility] Calcium 8.9 8.5 - 10.5 mg/dL [facility] Est Glomerular Filtration Rate 28(L) >=60 mL/min/1. 73 m?? [facility] Comment: The eGFR was calculated using the CKD-EPI equation. As with all creatinine based estimates of kidney function, eGFR values calculated with the CKD-EPI equation are not accurate in patients with acute kidney failure, extremes of body mass or the acutely ill. [email or web address]://[email or web address] eGFR 32(L) >=60 mL/min/1. 73 m?? [facility] Comment: The eGFR was calculated using the CKD-EPI equation. As with all creatinine based estimates of kidney function, eGFR values calculated with the CKD-EPI equation are not accurate in patients with acute kidney failure, extremes of body mass or the acutely ill. [email or web address] Blood specimen (specimen) 06/23/2018 10:12 AM EDT 06/23/2018 10:27 AM EDT Narrative Resulting Agency Comment Spec In Lab César Zarco MD CHEMISTRY ORDERA BLES Performing Organization Address [facility] Co de Phone Number [facility] [place] [address] * POCT Glucose (06/23/2018 3:50 AM EDT) Glucose, POC 121 65 - 199 mg/dL [facility] Comment: Supplemental ranges: <140 mg/dL before meals <180 mg/dL all other times of the day Blood specimen (specimen) 06/23/2018 3:50 AM EDT 06/23/2018 3:50 AM EDT César Zarco MD POINT OF CARE TE ST ORDERABLES Performing Organization Address [facility] Co de Phone Number [facility] [place] [address] * POCT Glucose (06/22/2018 11:16 PM EDT) Glucose, POC 125 65 - 199 mg/dL [facility] Comment: Supplemental ranges: <140 mg/dL before meals <180 mg/dL all other times of the day Blood specimen (specimen) 06/22/2018 11:16 PM EDT 06/22/2018 11:16 PM EDT César Zarco MD POINT OF CARE TE ST ORDERABLES Performing Organization Address City/[facility]/ZIP Co de Phone Number [facility] [place] [address] * POCT Glucose (06/22/2018 8:47 PM EDT) Glucose, POC 162 65 - 199 mg/dL [facility] Comment: Supplemental ranges: <140 mg/dL before meals <180 mg/dL all other times of the day Blood specimen (specimen) 06/22/2018 8:47 PM EDT 06/22/2018 8:47 PM EDT César Zarco MD POINT OF CARE TE ST ORDERABLES [facility] [place] [address] * POCT Glucose (06/22/2018 4:29 PM EDT) Glucose, POC 183 65 - 199 mg/dL [facility] Comment: Supplemental ranges: <140 mg/dL before meals <180 mg/dL all other times of the day Blood specimen (specimen) 06/22/2018 4:29 PM EDT 06/22/2018 4:29 PM EDT César Zarco MD POINT OF CARE TE ST ORDERABLES [facility] [place] [address] * XR Chest PA & Lateral (Generic) (06/22/2018 1:35 PM EDT) Anatomical Region Laterality Modality Chest N/A Digital Radiogra phy Narrative 06/22/2018 3:41 PM EDT EXAMINATION: XR CHEST PA AND LATERAL (GENERIC) CLINICAL HISTORY: interval chest tube removal TECHNIQUE: Frontal and lateral views of the chest COMPARISON: 06/22/2018 at 640 FINDINGS: Cardiomediastinal contours are unchanged. The right-sided chest tube has been removed in the interval. Soft tissue emphysema in the right chest wall. Streaky densities in the bilateral lower lung zones are grossly unchanged or slightly worsened. Small bilateral pleural effusions. Thank you for letting us participate in the care of this patient. For questions regarding this report, please contact the number below. ? Procedure Note Elvira Diehl MD - 06/22/2018 EXAMINATION: XR CHEST PA AND LATERAL (GENERIC) CLINICAL HISTORY: interval chest tube removal TECHNIQUE: Frontal and lateral views of the chest COMPARISON: 06/22/2018 at 640 FINDINGS: Cardiomediastinal contours are unchanged. The right-sided chest tube has been removed in the interval. Soft tissue emphysema in the right chest wall. Streaky densities in the bilateral lower lung zones are grossly unchangedor slightly worsened. Small bilateral pleural effusions. Thank you for letting us participate in the care of this patient. Forquestions regarding this report, please contact the number below. César Zarco MD IMG DX ORDERABLE S * POCT Glucose (06/22/2018 12:22 PM EDT) Glucose, POC 174 65 - 199 mg/dL [facility] Comment: Supplemental ranges: <140 mg/dL before meals <180 mg/dL all other times of the day Blood specimen (specimen) 06/22/2018 12:22 PM EDT 06/22/2018 12:22 PM EDT César Zarco MD POINT OF CARE TE ST ORDERABLES Performing Organization Address City/State/[facility] de Phone Number [facility] [place] [address] * POCT Glucose (06/22/2018 7:52 AM EDT) Glucose, POC 136 65 - 199 mg/dL [facility] Comment: Supplemental ranges: <140 mg/dL before meals <180 mg/dL all other times of the day Blood specimen (specimen) 06/22/2018 7:52 AM EDT 06/22/2018 7:52 AM EDT César Zarco MD POINT OF CARE OSMANY THOMPSON ORDERABLES Performing Organization Address [facility] de Phone Number [facility] [place] [address] * XR Chest PA & Lateral (Generic) (06/22/2018 6:44 AM EDT) Anatomical Region Laterality Modality Chest N/A Digital Radiogra phy Impressions 06/22/2018 8:29 AM EDT No pneumothorax or other new findings. Thank you for letting us participate in the care of this patient. For questions regarding this report, please contact the number below. ? Narrative 06/22/2018 8:29 AM EDT EXAMINATION: XR CHEST PA AND LATERAL (GENERIC) CLINICAL HISTORY: s/p vats wedge biopsy ??eval for interval change, ptx, effusion TECHNIQUE: AP and lateral views of the chest. COMPARISON: 06/21/2018. FINDINGS: Right chest tube in unchanged position. No appreciable pneumothorax. Unchanged appearance of the lungs, with areas of platelike atelectasis at the lung bases. Unchanged cardiomediastinal silhouette. No appreciable pleural fluid. Procedure Note Justine Mendez MD - 06/22/2018 EXAMINATION: XR CHEST PA AND LATERAL (GENERIC) CLINICAL HISTORY: s/p vats wedge biopsy eval for interval change, ptx,effusion TECHNIQUE: AP and lateral views of the chest. COMPARISON: 06/21/2018. FINDINGS: Right chest tube in unchanged position. No appreciablepneumothorax. Unchanged appearance of the lungs, with areas of platelike atelectasis atthe lung bases. Unchanged cardiomediastinal silhouette. No appreciablepleural fluid. IMPRESSION No pneumothorax or other new findings. Thank you for letting us participate in the care of this patient. Forquestions regarding this report, please contact the number below. César Zarco MD IMG DX ORDERABLE S * POCT Glucose (06/22/2018 4:44 AM EDT) Pathologist [facility] Glucose, POC 98 65 - 199 mg/dL [facility] Comment: Supplemental ranges: <140 mg/dL before meals <180 mg/dL all other times of the day Blood specimen (specimen) 06/22/2018 4:44 AM EDT 06/22/2018 4:44 AM EDT César Zarco MD POINT OF CARE TE ST ORDERABLES [facility] [place] [address] * (ABNORMAL) Differential, Automated (06/22/2018 4:40 AM EDT) Neutrophil % 79.3 % [facility] Neutrophil Absolute 7.57(H) 1.70 - 6.10 x10(3)/mc L [facility] Lymph % 12.9 % [facility] Lymphocytes Abs 1.2 0.9 - 3.2 x10(3)/ L [facility] Monocyte % 5.4 % [facility] Monocyte Abs 0.5 0.3 - 0.9 x10(3)/ L [facility] Eos % 1.8 % [facility] Eosinophils Abs 0.2 0.0 - 0.4 x10(3)/[facility] Basophil % 0.3 % [facility] Baso Absolute 0.0 0.0 - 0.1 x10(3)/[facility] Immature Gran % 0.30 % [facility] [facility] Comment: Immature granulocytes(IG's)percentage and absolute count will include metamyelocytes, myelocytes, and promyelocytes. Blood smears from CBCs yielding IG's will be scanned manually for concordance. If this scan disagrees with the automated IG or if promyelocytes are noted, a manual differential will be performed. Immature Gran Absolute 0.03 0.00 - 0.04 x10(3)/ L [facility] Blood specimen (specimen) 06/22/2018 4:40 AM EDT 06/22/2018 4:53 AM EDT Narrative Resulting Agency Comment Spec In Lab Shiv Middleton MD HEMATOLOGY ORDERABLE S Performing Organization Address City/State/[facility] Co de Phone Number [facility] [place] [address] * (ABNORMAL) Hemogram (06/22/2018 4:40 AM EDT) White Blood Cell 9.6(H) 4.0 - 9.5 x10(3)/ L [facility] Red Blood Cell 3.87(L) 4.00 - 5.21 x10(6)/ L [facility] Hemoglobin 11.5(L) 11.7 - 15.5 gm/dL [facility] Hematocrit 36.6 35.7 - 45.8 % [facility] Mean Cell Volume 94.6(H) 82.6 - 94.4 fL [facility] Mean Cell Hemoglobin 29.7 27.1 - 32.0 pg [facility] Mean Cell Hemoglobin Concentration 31.4(L) 31.7 - 35.0 gm/dL [facility] Platelet 227 145 - 357 x10(3)/mc L [facility] RDW Standard Deviation 46.9(H) 37.0 - 46.0 fL [facility] RDW coefficient of variation 13.5 11.5 - 14.1 % [facility] Mean Platelet Volume 10.5 7.6 - 12.9 fL [facility] NRBC% auto 0.0 % [facility] NRBC Absolute 0.000 0.000 - 0.000 x10(3)/mc L [facility] Blood specimen (specimen) 06/22/2018 4:40 AM EDT 06/22/2018 4:53 AM EDT Narrative Resulting Agency Comment Spec In Lab Shiv Middleton MD HEMATOLOGY ORDERABLE S [facility] [place] [address] * (ABNORMAL) Basic Metabolic Panel (non-fasting) (06/22/2018 4:40 AM EDT) Glucose 106 65 - 199 mg/dL [facility] Comment:Diabetes: >=200 mg/d L plus symptoms Blood Urea Nitrogen 26(H) 8 - 18 mg/dL [facility] Creatinine 1.55(H) 0.70 - 1.20 mg/dL [facility] Sodium 142 135 - 145 mmol/L [facility] Potassium 4.6 3.5 - 5.0 mmol/L [facility] Comment: Please note: ??Patients with WBC >100,000 may have falsely elevated Potassium levels. ??For accurate Potassium quantification in these patients send serum separator tube (gold top) for subsequent determinations. ??Contact the Clinical Chemistry Laboratory if there are any questions. Chloride 106 98 - 107 mmol/L [facility] Carbon Dioxide 24 22 - 31 mmol/L [facility] Anion Gap 12 5 - 15 mmol/L [facility] Calcium 8.8 8.5 - 10.5 mg/dL [facility] Est Glomerular Filtration Rate 36(L) >=60 mL/min/1. 73 m?? [facility] Comment: The eGFR was calculated using the CKD-EPI equation. As with all creatinine based estimates of kidney function, eGFR values calculated with the CKD-EPI equation are not accurate in patients with acute kidney failure, extremes of body mass or the acutely ill. http://[employer] eGFR 42(L) >=60 mL/min/1. 73 m?? [facility] Comment: The eGFR was calculated using the CKD-EPI equation. As with all creatinine based estimates of kidney function, eGFR values calculated with the CKD-EPI equation are not accurate in patients with acute kidney failure, extremes of body mass or the acutely ill. http://[employer] Blood specimen (specimen) 06/22/2018 4:40 AM EDT 06/22/2018 4:53 AM EDT Narrative Resulting Agency Comment Spec In Lab César Zarco MD CHEMISTRY ORDERA [facility] [place] [address] * POCT Glucose (06/22/2018 12:03 AM EDT) Glucose, POC 116 65 - 199 mg/dL [facility] Comment: Supplemental ranges: <140 mg/dL before meals <180 mg/dL all other times of the day Blood specimen (specimen) 06/22/2018 12:03 AM EDT 06/22/2018 12:03 AM EDT César Zarco MD POINT OF CARE TE ST ORDERABLES [facility] [place] [address] * XR Chest PA & Lateral (Generic) (06/21/2018 6:20 PM EDT) Anatomical Region Laterality Modality Chest N/A Digital Radiogra phy Narrative 06/21/2018 7:26 PM EDT EXAMINATION: XR CHEST PA AND LATERAL (GENERIC) CLINICAL HISTORY: s/p Right lung wedge biopsies TECHNIQUE: Frontal and lateral views of the chest COMPARISON: 04/23/2018 FINDINGS: Cardiomegaly. Platelike atelectasis in the bilateral lower lung zones. Pulmonary edema. A right-sided chest tube is in place. No pneumothorax. Trace of bilateral pleural effusions suspected. Thank you for letting us participate in the care of this patient. For questions regarding this report, please contact the number below. ? Procedure Note Elvira Diehl MD - 06/21/2018 EXAMINATION: XR CHEST PA AND LATERAL (GENERIC) CLINICAL HISTORY: s/p Right lung wedge biopsies TECHNIQUE: Frontal and lateral views of the chest COMPARISON: 04/23/2018 FINDINGS: Cardiomegaly. Platelike atelectasis in the bilateral lower lung zones. Pulmonary edema. A right-sided chest tube is in place. No pneumothorax. Trace of bilateral pleural effusions suspected. Thank you for letting us participate in the care of this patient. Forquestions regarding this report, please contact the number below. César Zarco MD IMG DX ORDERABLE S * POCT Glucose (06/21/2018 4:48 PM EDT) Glucose, POC 150 65 - 199 mg/dL [facility] Comment: Supplemental ranges: <140 mg/dL before meals <180 mg/dL all other times of the day Blood specimen (specimen) 06/21/2018 4:48 PM EDT 06/21/2018 4:48 PM EDT César Zarco MD POINT OF CARE TE ST ORDERABLES Performing Organization Address [facility]/ZIP Co de Phone Number [facility] [place] [address] * (ABNORMAL) POCT Glucose (06/21/2018 2:10 PM EDT) Glucose, POC 205(H) 65 - 199 mg/dL [facility] Comment: Supplemental ranges: <140 mg/dL before meals <180 mg/dL all other times of the day Blood specimen (specimen) 06/21/2018 2:10 PM EDT 06/21/2018 2:10 PM EDT César Zarco MD POINT OF CARE TE ST ORDERABLES Performing Organization Address City/[facility]/ZIP Co de Phone Number [facility] [place] [address] * (ABNORMAL) POCT Glucose (06/21/2018 1:37 PM EDT) Glucose, POC 233(H) 65 - 199 mg/dL [facility] Comment: Supplemental ranges: <140 mg/dL before meals <180 mg/dL all other times of the day Blood specimen (specimen) 06/21/2018 1:37 PM EDT 06/21/2018 1:37 PM EDT César Zarco MD POINT OF CARE TE ST ORDERABLES Performing Organization Address [facility] de Phone Number [facility] [place] [address] * Specimen to Pathology (06/21/2018 1:18 PM EDT) AP Specimen 06/21/2018 1:18 PM EDT 06/21/2018 1:18 PM EDT Narrative [facility] - 06/21/2018 1:18 PM EDT Specimen requisition ordered. ??Separate Pathology report to follow César Zarco MD PATHOLOGY/CYTOLO GY ORDERABLES Performing Organization Address [facility] [place] [address] * Specimen to Pathology (06/21/2018 12:43 PM EDT) AP Specimen 06/21/2018 12:4 3 PM EDT 06/21/2018 12:43 PM EDT Narrative [facility] - 06/21/2018 12:43 PM EDT Specimen requisition ordered. ??Separate Pathology report to follow César Zarco MD PATHOLOGY/CYTOLO GY ORDERABLES Performing Organization Address [facility] [place] [address] * Surgical Pathology Report (06/21/2018 12:42 PM EDT) Final Diagnosis [id number] ? Location: [facility]; [facility]; A The signing pathologist has (i) examined the relevant preparation(s) for the specimen(s) and (ii) rendered or confirmed the diagnosis(es). . ?Surgical Pathology DIAGNOSIS A - Right lower lobe, wedge resection: - Multiple sclerotic granulomata with central necrotic debris. - Subpleural lymph node with reactive follicular hyperplasia. - Variable emphysematous changes. ??(see Discussion.) B - Additional right lower lobe wedge resection: - Multiple sclerotic granulomata with central necrotic debris. - Variable emphysematous changes. Electronically signed by: ??MD Rhoda, Bobo Santana Verified: ??06/27/2018 ?Pathologist Performed at: ??-[facility] Dept. of Pathology, [place], [place] DISCUSSION AFB and GMS stains (Block A1) show no evidence of fungal or acid-fast organisms. ADDITIONAL STUDIES Whole slide scan: A1 CLINICAL INFORMATION Specimen Submitted: A - Right lower lobe wedge for frozen section B - Additional right lower lobe wedge Clinical History and Diagnosis: Lung nodule SPECIMEN PROCESSING A - Labeled/Fixative: Right lower lobe wedge, fresh for frozen section. Quantity/Size: ??Single, 6.5 x 2.5 x 1.3 cm, 5 g. TissueDescription : Intact, wedge resection of lung. Pleural Surface: ??Congested pink to lamas purple with four subpleural nodules. LESION ??Description: Circumscribed nodule. ??Size: 0.2 cm. ??Color: Chung-white. ??Consistency: Firm and gritty. ??Location: Subpleural, 0.8 cm from the staple line. LESION (2) ??Description: Circumscribed nodule. ??Size: 0.2 cm. ??Color: Cuhng-white. ??Consistency: Firm and gritty. ??Location: Subpleural, 2.8 cm from the staple line, 0.3 cm from lesion 1. LESION (3) ??Description: Circumscribed nodule. ??Size: 0.2 cm. ??Color: Chung-white. ??Consistency: Firm and gritty. ??Location: Subpleural, 0.9 cm from staple line, 2.0 cm from lesion 1; 2.6 cm from lesion 2. LESION (4) . SPECIMEN PROCESSING ??Description: Circumscribed nodule. ??Size: 0.4 cm. ??Color: veloz-red. ??Consistency: soft. ??Location: Subpleural, 0.3cm from staple line, and adjacent to lesion 3. Closest parenchymal margin: ??0.3 cm ??to staple line (lesion 4). Parenchyma: Crepitant, red brown with a focus of subpleural atelectasis adjacent to nodule 3; and 0.3 cm diameter lamas subpleural nodular focus adjacent to lesion 1. Sections/Processi ng: The following tissue is submitted for frozen section: Lesions 1, 2 together; lesions 3,4 together, as AFS 1. Serially sectioned and entirely submitted in 7 cassettes as follows: ? A1: ??A FS 1 frozen section residual tissue ? A2: ??Subpleural nodule adjacent to lesion 1 ? A3: ??Lesion 1 and adjacent staple line margin ? A4: ??Lesion 2 and adjacent staple line margin ? A5: ??Lesions 3 and 4 with adjacent staple line ? A6-A7: ??Building Architectural Designer parenchyma with atelectatic-appea ring focus B - Labeled/Fixative: Additional right lower lobe lung wedge, fresh. Quantity/Size: ??Single, 4.4 x 1.0 x 1.0 cm, 2.9 g. TissueDescription : Intact, wedge resection of lung. Pleural Surface: ??Purple lamas, glistening with three chung-white nodules; two 0.1 cm, and one 0.3 cm. LESION ??Description: Nodule. ??Size: 0.1 cm. ??Color: Yellow-white. ??Consistency: Firm. ??Location: Subpleural, 0.6 cm from the nearest stapled margin, and 0.4 cm from one specimen end.. LESION (2) ??Description: Nodule. ??Size: 0.1 cm. ??Color: Yellow-white. ??Consistency: Firm. ??Location: Subpleural, 0.6 cm from the nearest stapled margin, and 0.5 cm from lesion 1. LESION (3) ??Description: Nodule. ??Size: 0.3 cm. ??Color: Yellow-white. ??Consistency: Firm. ??Location: Subpleural, 0.6 cm from the nearest stapled margin; 2.0 cm from the opposite specimen end and 1.8 cm from lesion 2. Closest parenchymal margin: ??0.6 cm to staple line. Parenchyma: Red-brown, subcrepitant. Sections/Processi ng: Serially sectioned and entirely submitted in 4 cassettes as follows: ? B1: ??Lesion 1 and closest stapled margin ? B2: ??Lesion 2 and closest stapled margin ? B3: ??Building Architectural Designer parenchyma between lesions 2 and 3 ? B4: ??Lesion 3 and adjacent stapled margin ??shb ?Frozen Section FROZEN SECTION DIAGNOSIS A - Right lower lobe wedge for frozen section - calcified nodules, favor old hyalinized granulomas . FROZEN SECTION DIAGNOSIS 06/21/18 13:13 Electronically signed by: ??Jesusita Crowley DO Verified: ??06/21/2018 ?Pathologist Performed at: ??-[facility] Dept. of Pathology, [place], [place] This intraoperative consultation should be interpreted as a preliminary diagnosis pending review of the entire specimen and special studies, if any. 06/27/2018 1:59 PM EDT [facility] LUNG STRUCTURE / Unknown 06/21/2018 12:42 PM EDT 06/21/2018 12:42 PM EDT LUNG STRUCTURE / Unknown 06/21/2018 12:42 PM EDT 06/21/2018 12:42 PM EDT César Zarco MD PATHOLOGY/CYTOLO GY ORDERABLES [facility] [place] [address] * POCT Glucose (06/21/2018 12:22 PM EDT) Glucose, POC 193 65 - 199 mg/dL [facility] Comment: Supplemental ranges: <140 mg/dL before meals <180 mg/dL all other times of the day Blood specimen (specimen) 06/21/2018 12:22 PM EDT 06/21/2018 12:22 PM EDT César Zarco MD POINT OF CARE TE ST ORDERABLES Performing Organization Address City/[facility]/ZIP Co de Phone Number [facility] [place] [address] * POCT Glucose (06/21/2018 11:20 AM EDT) Glucose, POC 157 65 - 199 mg/dL [facility] Comment: Supplemental ranges: <140 mg/dL before meals <180 mg/dL all other times of the day Blood specimen (specimen) 06/21/2018 11:20 AM EDT 06/21/2018 11:20 AM EDT César Zarco MD POINT OF CARE TE ST ORDERABLES Performing Organization Address [facility] Co de Phone Number [facility] [place] [address] * EKG 12 Lead (06/21/2018 11:05 AM EDT) Ventricular rate 58 BPM MUSE SYSTEM Atrial Rate 58 BPM MUSE SYSTEM P-R Interval 184 ms MUSE SYSTEM QRS Duration 88 ms MUSE SYSTEM Q-T Interval 432 ms MUSE SYSTEM QTC Calculated (Bezet) 424 ms MUSE SYSTEM Calculated P [place] 61 degrees MUSE SYSTEM Calculated R [place] 7 degrees MUSE SYSTEM Calculated T [place] 59 degrees MUSE SYSTEM INTERPRETATION Sinus bradycardia Otherwise normal ECG When compared with ECG of 14-NOV-2007 12:49, No significant change was found Confirmed by MD Remigio, Moose Pagan ([id number]) on 06/23/2018 12:25:19 PM MUSE SYSTEM 06/21/2018 11:0 5 AM EDT 06/23/2018 12:25 PM EDT Regino Mayer MD ECG ORDERABLES Performing Organization Address City/[facility]/ZIP Co de Phone Number MUSE SYSTEM documented in this encounter Visit Diagnoses Diagnosis PAD (peripheral artery disease) Peripheral vascular disease, unspecified 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 Atherosclerosis of autologous vein bypass graft of extremities Stenosis of left carotid artery Occlusion and stenosis of carotid artery without mention of cerebral infarction Obesity with serious comorbidity, unspecified classification, unspecified obesity type Hypertension, unspecified type Right lower lobe pulmonary nodule Lung nodule Solitary pulmonary nodule documented in this encounter Admitting Diagnoses Diagnosis Lung nodule Solitary pulmonary nodule documented in this encounter Administered Medications Inactive Administered Medications - up to 3 most recent administrations Medication Order MAR Action Action Date Dose Rate Site acetaminophen (TYLENOL) tablet 1,000 mg 1,000 mg, Oral, ONCE, 1 dose, On Meseret 06/21/18 at 1115, Administer with SIP of H2O only., Day of Surgery (Day of Procedure), Routine Given 06/21/2018 11:29 AM EDT 1,000 mg acetaminophen (TYLENOL) tablet 1,000 mg 1,000 mg, Oral, EVERY 6 HOURS SCHEDULED, First dose on Meseret 06/21/18 at 1800, Until Discontinued, Do not exceed 4,000 mg in 24 hours, Recovery (Recovery-Hospital Unit), Routine Given 06/24/2018 11:18 AM EDT 1,000 mg Given 06/24/2018 7:12 AM EDT 1,000 mg Given 06/23/2018 11:48 PM EDT 1,000 mg albuterol (PROVENTIL) nebulizer solution 2.5 mg 2.5 mg, Nebulization, EVERY 6 HOURS, First dose on Meseret 06/21/18 at 2100, Until Discontinued, Routine Given 06/24/2018 9:11 AM EDT 2.5 mg Given 06/24/2018 4:00 AM EDT 2.5 mg Given 06/23/2018 9:47 PM EDT 2.5 mg aspirin EC tablet 81 mg 81 mg, Oral, DAILY, First dose on Mon06/22/18 at 0900, Until Discontinued, Routine Given 06/24/2018 9:12 AM EDT 81 mg Given 06/23/2018 9:06 AM EDT 81 mg Given 06/22/2018 8:14 AM EDT 81 mg carvedilol (COREG) tablet 1.56 mg 1.56 mg, Oral, 2 TIMES DAILY WITH MEALS, First dose on Meseret 06/21/18 at 2100, Until Discontinued, Routine Given 06/24/2018 9:12 AM EDT 1.56 mg Given 06/23/2018 4:50 PM EDT 1.56 mg Given 06/23/2018 9:07 AM EDT 1.56 mg citalopram (CeleXA) tablet 20 mg 20 mg, Oral, 2 TIMES DAILY, First dose on Meseret 06/21/18 at 2100, Until Discontinued, Routine Given 06/24/2018 9:00 AM EDT 20 mg Given 06/23/2018 9:47 PM EDT 20 mg Given 06/23/2018 9:06 AM EDT 20 mg dextrose 50% intravenous solution 25-50 mL 25-50 mL (12.5-25 g), Intravenous, EVERY 1 HOUR PRN, Starting on Meseret 06/21/18 at 1342, Until 06/24/18 at 1403, Low blood sugar, For BG 50-70 mg/dL: [...] for the duration of the active insulin., Recovery (Recovery-Hospital Unit), Routine docusate sodium (COLACE) capsule 100 mg 100 mg, Oral, 3 TIMES DAILY, First dose on Meseret 06/21/18 at 2100, Until Discontinued, Routine Given 06/24/2018 9:11 AM EDT 100 mg Given 06/23/2018 9:47 PM EDT 100 mg Given 06/23/2018 4:49 PM EDT 100 mg furosemide (LASIX) tablet 20 mg 20 mg, Oral, ONCE, 1 dose, On 06/23/18 at 1000, Routine Given 06/23/2018 11:37 AM EDT 20 mg glucagon (human recombinant) injection SolR 1 mg 1 mg, Intramuscular, EVERY 1 HOUR PRN, Starting on Meseret 06/21/18 at 1342, Until 06/24/18 at 1403, Low blood sugar, For BG 50-70 mg/dL: [...] for the duration of the active insulin., Recovery (Recovery-Hospital Unit), Routine glucose (GLUTOSE) 40% oral gel 15-30 g, Buccal, EVERY 30 MIN PRN, Starting on [place] 06/21/18 at 1342, Until 06/24/18 at 1403, Low blood sugar, For BG 50-70 mg/dL: [...] (net weight of tube = 37.5 grams., Recovery (Recovery-Hospital Unit), Routine heparin (Porcine) subcutaneous injection 5,000 Units 5,000 Units, Subcutaneous, NURSING DIRECTOR TO O.R., 1 dose, On Meseret 06/21/18 at 1130, Routine Given 06/21/2018 11:32 AM EDT 5,000 Units Left Arm heparin (Porcine) subcutaneous injection 5,000 Units 5,000 Units, Subcutaneous, EVERY 8 HOURS SCHEDULED, First dose on Meseret 06/21/18 at 2200, Until Discontinued, Routine Given 06/24/2018 7:12 AM EDT 5,000 Units Given 06/23/2018 9:47 PM EDT 5,000 Units Given 06/23/2018 1:44 PM EDT 5,000 Units A bdominal Tissue HYDROmorphone (DILAUDID) injection 0.2-0.4 mg 0.2-0.4 mg, Intravenous, EVERY 5 MIN PRN, Starting on Meseret 06/21/18 at 1412, Until Meseret 06/21/18 at 2040, Pain, Give 0.2 mg every 5 minutes [...] for breakthrough pain., PACU Recovery, Routine Given 06/21/2018 4:40 PM EDT 0.4 mg Given 06/21/2018 4:10 PM EDT 0.4 mg Given 06/21/2018 3:25 PM EDT 0.4 mg insulin lispro (HumaLOG) VIAL injection 2-8 [...] 06/23/2018 8:00 PM EDT 5 Units lactated Ringers 250 mL IV bolus Intravenous, ONCE, 1 dose, On 06/23/18 at 1800 New Bag 06/23/2018 6:07 PM EDT lactated ringers infusion 1,000 mL, at 100 mL/hr, Intravenous, CONTINUOUS, Starting on Meseret 06/21/18 at 1100, Until Meseret 06/21/18 at 2041, Using macrodrip IV tubing with 2 claves and 2 stopcocks, Day of Surgery (Day of Procedure) New Bag 06/21/2018 11:40 AM EDT New Bag 06/21/2018 11:00 AM EDT 1,000 mLs 100 mL/hr lactated ringers infusion 50 mL/hr, Intravenous, CONTINUOUS, Starting on Meseret 06/21/18 at 1515, Until Mon06/22/18 at 0631, Recovery (Recovery-Hospital Unit) New Bag 06/21/2018 2:58 PM EDT 50 mL/h r 50 mL/hr levothyroxine (SYNTHROID) tablet 125 mcg 125 mcg, Oral, EVERY MORNING, First dose on Mon06/22/18 at 0600, Until Discontinued, Routine Given 06/24/2018 7:12 AM EDT 125 mcg Given 06/23/2018 5:47 AM EDT 125 mcg Given 06/22/2018 5:27 AM EDT 125 mcg oxyCODONE (ROXICODONE) immediate release tablet 5 mg 5 mg, Oral, EVERY 4 HOURS PRN, Starting on Meseret 06/21/18 at 1456, Until Mon06/24/18 at 1403, Pain, May repeat 5 mg in 60 minutes if pain not relieved., Recovery (Recovery-Hospital Unit), Routine Given 06/22/2018 9:54 PM EDT 5 mg Given 06/22/2018 3:38 PM EDT 5 mg Given 06/22/2018 8:14 AM EDT 5 mg pantoprazole (PROTONIX) tablet 40 mg 40 mg, Oral, DAILY, First dose on Mon06/22/18 at 0900, Until Discontinued, DO NOT CRUSH OR OPEN Given 06/24/2018 9:11 AM EDT 40 mg Given 06/23/2018 9:06 AM EDT 40 mg Given 06/22/2018 8:14 AM EDT 40 mg senna (SENOKOT) tablet 17.2 mg 17.2 mg, Oral, EVERY EVENING, First dose on Mon06/22/18 at 1700, Until Discontinued, Routine Given 06/23/2018 4:49 PM EDT 17.2 mg Given 06/22/2018 4:31 PM EDT 17.2 mg simvastatin (ZOCOR) tablet 40 mg 40 mg, Oral, EVERY EVENING, First dose on Meseret 06/21/18 at 2100, Until Discontinued Given 06/23/2018 4:49 PM EDT 40 mg Given 06/22/2018 4:32 PM EDT 40 mg Given 06/21/2018 10:08 PM EDT 40 mg sodium chloride 0.9 % flush 5 mL 5 mL, Intravenous, 2 TIMES DAILY, First dose on Meseret 06/21/18 at 2100, Until Discontinued, Recovery (Recovery-Hospital Unit), Routine Given 06/24/2018 9:00 AM EDT 5 mLs Given 06/23/2018 9:48 PM EDT 5 mLs Given 06/23/2018 11:54 AM EDT 5 mLs documented in this encounter Active and Recently Administered Medications Times are shown in EDT. Scheduled Medication Order 06/22/2018 06/23/2018 06/24/2018 acetaminophen (TYLENOL) tablet 1,000 mg 1,000 mg, Oral, EVERY 6 HOURS SCHEDULED, First dose on Meseret 06/21/18 at 1800, Until Discontinued, Do not exceed 4,000 mg in 24 hours, Recovery (Recovery-Hospital Unit), Routine 0005 (Given - Provider: Luisito Greene RN)0527 (Given - Provider: Luisito Greene RN)1227 (Given - Provider: Fabiana Kent RN)1811 (Given - Provider: Joanna Medeiros RN)2330 (Given - Provider: Huan Canales RN) 0547 (Given - Provider: Huan Canales RN)1137 (Given - Provider: Nam Eng RN)1800 (Not Given - Provider: Nam Eng RN - Reason: Patient/family refused)2348 (Given - Provider: Huan Canales RN) 0712 (Given - Provider: Huan Canales RN)1118 (Given - Provider: CYNTHIA Neil) albuterol (PROVENTIL) nebulizer solution 2.5 mg 2.5 mg, Nebulization, EVERY 6 HOURS, First dose on Mon06/21/18 at 2100, Until Discontinued, Routine 0300 (Not Given - Provider: Luisito Greene RN - Reason: Patient/family refused)0814 (Given - Provider: Fabiana Kent RN)1631 (Not Given - Provider: Joanna Medeiros RN - Reason: See comment - Comment: pt not available - missed dose.)2040 (Given - Provider: Huan Canales RN) 0400 (Given - Provider: Huan Canales RN)0906 (Given - Provider: Nam Eng RN)1649 (Given - Provider: Nam Eng RN)2147 (Given - Provider: Huan Canales RN) 0400 (Given - Provider: Huan Canales RN)0911 (Given - Provider: CYNTHIA Neil) aspirin EC tablet 81 mg 81 mg, Oral, DAILY, First dose on Mon06/22/18 at 0900, Until Discontinued, Routine 0814 (Given - Provider: Fabiana Kent RN) 0906 (Given - Provider: Nam Eng RN) 0912 (Given - Provider: CYNTHIA Neil) carvedilol (COREG) tablet 1.56 mg 1.56 mg, Oral, 2 TIMES DAILY WITH MEALS, First dose on Mon06/21/18 at 2100, Until Discontinued, Routine 0816 (Given - Provider: Fabiana Kent RN)1636 (Given - Provider: Joanna Medeiros RN) 0907 (Given - Provider: Nam Eng RN)1650 (Given - Provider: Nam Eng RN) 0912 (Given - Provider: CYNTHIA Neil) citalopram (CeleXA) tablet 20 mg 20 mg, Oral, 2 TIMES DAILY, First dose on Meseret 06/21/18 at 2100, Until Discontinued, Routine 0815 (Given - Provider: Fabiana Kent RN)2040 (Given - Provider: Huan Canales RN) 0906 (Given - Provider: Nam Eng RN)2147 (Given - Provider: Huan Canales RN) 0900 (Given - Provider: CYNTHIA Neil) docusate sodium (COLACE) capsule 100 mg 100 mg, Oral, 3 TIMES DAILY, First dose on Meseret 06/21/18 at 2100, Until Discontinued, Routine 0814 (Given - Provider: Fabiana Kent RN)1631 (Given - Provider: Joanna Medeiros RN)204 (Given - Provider: Huan Canales RN) 09 (Given - Provider: Nam Eng RN)1649 (Given - Provider: Nam Eng RN)2147 (Given - Provider: Huan Canales RN) 0911 (Given - Provider: CYNTHIA Neil) furosemide (LASIX) tablet 20 mg (COMPLETED) 20 mg, Oral, ONCE, 1 dose, On 06/23/18 at 1000, Routine 1137 (Given - Provider: Nam Eng RN) heparin (Porcine) subcutaneous injection 5,000 Units 5,000 Units, Subcutaneous, EVERY 8 HOURS SCHEDULED, First dose on Meseret 06/21/18 at 2200, Until Discontinued, Routine 0528 (Given - Provider: Luisito Greene RN)1418 (Given - Provider: Fabiana Kent RN)2104 (Given - Provider: Huan Canales RN) 0547 (Given - Provider: Huan Canales RN)1344 (Given - Provider: Nam Eng RN)2147 (Given - Provider: Huan Canales RN) 0712 (Given - Provider: Huan Canales RN) insulin lispro (HumaLOG) VIAL injection 2-8 Units(Linked Group 1) 2-8 Units, Subcutaneous, EVERY 4 HOURS SCHEDULED, [...] to do so., Recovery (Recovery-Hospital Unit), Routine 0000 (Not Given - Provider: Luisito Greene RN - Reason: Order parameters not met)0400 (Not Given - Provider: Luisito Greene RN - Reason: Order parameters not met)0824 (Given - Provider: Fabiana Kent RN - Comment: Patient gave her own insulin after eating breakfast.)1229 (Given - Provider: Fabiana Kent RN - Comment: gave own insulin from pump)1630 (Given - Provider: Joanna Medeiros RN - Comment: FS 183Pt used own pump to admin insulin.)2000 (Given - Provider: Huan Canales RN - Comment: Pt w/ insulin pump - self admin. 5Units, per pt choice.) 0000 (Not Given - Provider: Huan Canales RN - Reason: Order parameters not met)0400 (Not Given - Provider: Huan Canales RN - Reason: Order parameters not met)0800 (Not Given - Provider: Nam Eng RN - Reason: Order parameters not met)1341 (Given - Provider: Nam Eng RN - Comment: pt self administered via insulin pump)1645 (Given - Provider: Nam Eng RN - Comment: pt self admin via inulin pump)1999 (Given - Provider: Huan Canales RN - Comment: Per pt insulin pump.)2356 (Given - Provider: Huan Canales RN - Comment: Pt requested 5 Units.) 0400 (Not Given - Provider: Huan Canales RN - Reason: Order parameters not met)0800 (Not Given - Provider: CYNTHIA Neil - Reason: Order parameters not met - Comment: BS 128)1118 (Given - Provider: CYNTHIA Neil - Comment: BS 289) lactated Ringers 250 mL IV bolus (COMPLETED) Intravenous, ONCE, 1 dose, On 06/23/18 at 1800 1807 (New Bag - Provider: Nam Eng RN) levothyroxine (SYNTHROID) tablet 125 mcg 125 mcg, Oral, EVERY MORNING, First dose on Mon06/22/18 at 0600, Until Discontinued, Routine 0527 (Given - Provider: Luisito Greene RN) 0547 (Given - Provider: Huan Canales RN) 0712 (Given - Provider: Huan Canales RN) pantoprazole (PROTONIX) tablet 40 mg 40 mg, Oral, DAILY, First dose on Mon06/22/18 at 0900, Until Discontinued, DO NOT CRUSH OR OPEN 0814 (Given - Provider: Fabiana Kent RN) 0906 (Given - Provider: Nam Eng RN) 0911 (Given - Provider: CYNTHIA Neil) senna (SENOKOT) tablet 17.2 mg 17.2 mg, Oral, EVERY EVENING, First dose on Mon06/22/18 at 1700, Until Discontinued, Routine 1631 (Given - Provider: Joanna Medeiros RN) 1649 (Given - Provider: Nam Eng RN) simvastatin (ZOCOR) tablet 40 mg 40 mg, Oral, EVERY EVENING, First dose on Meseret 06/21/18 at 2100, Until Discontinued 1632 (Given - Provider: Joanna Medeiros RN) 1649 (Given - Provider: Nam Eng RN) sodium chloride 0.9 % flush 5 mL 5 mL, Intravenous, 2 TIMES DAILY, First dose on Meseert 06/21/18 at 2100, Until Discontinued, Recovery (Recovery-Hospital Unit), Routine 0825 (Given - Provider: Fabiana Kent RN)2040 (Given - Provider: Huan Canales, TAMEKA) 1154 (Given - Provider: Nam Eng RN)2148 (Given - Provider: Huan Canales RN) 0900 (Given - Provider: CYNTHIA Neil) PRN Medication Order 06/22/2018 06/23/2018 06/24/2018 dextrose 50% intravenous solution 25-50 mL(Linked Group 2) 25-50 mL (12.5-25 g), Intravenous, EVERY 1 HOUR PRN, Starting on Meseret 06/21/18 at 1342, Until 06/24/18 at 1403, Low blood sugar, For BG 50-70 mg/dL: [...] for the duration of the active insulin., Recovery (Recovery-Hospital Unit), Routine glucagon (human recombinant) injection SolR 1 mg(Linked Group 2) 1 mg, Intramuscular, EVERY 1 HOUR PRN, Starting on Meseret 06/21/18 at 1342, Until 06/24/18 at 1403, Low blood sugar, For BG 50-70 mg/dL: [...] for the duration of the active insulin., Recovery (Recovery-Hospital Unit), Routine glucose (GLUTOSE) 40% oral gel(Linked Group 2) 15-30 g, Buccal, EVERY 30 MIN PRN, Starting on Meseret 06/21/18 at 1342, Until 06/24/18 at 1403, Low blood sugar, For BG 50-70 mg/dL: [...] (net weight of tube = 37.5 grams., Recovery (Recovery-Hospital Unit), Routine lidocaine (XYLOCAINE) 10 mg/mL (1 %) injection 3 mg 3 mg (0.3 mL), Subcutaneous, ONCE PRN, 1 dose, Starting on Meseret 06/21/18 at 1456, Until 06/24/18 at 1403, for discomfort with PIV insertion, Recovery (Recovery-Hospital Unit), Routine ondansetron (ZOFRAN) injection 4 mg 4 mg, Intravenous, EVERY 8 HOURS PRN, Starting on Meseret 06/21/18 at 2041, Until 06/24/18 at 1403, Nausea oxyCODONE (ROXICODONE) immediate release tablet 5 mg 5 mg, Oral, EVERY 4 HOURS PRN, Starting on Meseret 06/21/18 at 1456, Until 06/24/18 at 1403, Pain, May repeat 5 mg in 60 minutes if pain not relieved., Recovery (Recovery-Hospital Unit), Routine 0814 (Given - Provider: Fabiana Kent, RN)1538 (Given - Provider: Joanna Medeiros, TAMEKA)215 (Given - Provider: Huan Canales RN) sodium chloride 0.9 % flush 5-20 mL 5-20 mL, Intravenous, EVERY 1 MIN PRN, Starting on Meseret 06/21/18 at 1456, Until 06/24/18 at 1403, flush, Flush pertains to all indwelling lines. Flush per protocol found in the job aid using the link provided on this medication record., Recovery (Recovery-Hospital Unit), Routine Linked Groups Order Group 1: POCT Fingerstick Glucose (CANCELED) Routine, EVERY 4 HOURS, First occurrence on Meseret 06/21/18 at 1600, Until Specified, Recovery (Recovery-Hospital Unit), Consider choosing EVERY 4 HOURS as frequency for: - Type 1 Diabetes - At least 24 hours after coming off an insulin drip - At least 24 hours after admission for DKA - Hypoglycemia unawareness - Patients who are otherwise unstable Select the same frequency for the correction bolus insulin order And insulin lispro (HumaLOG) VIAL injection 2-8 UnitsJump to med 2-8 Units, Subcutaneous, EVERY 4 HOURS SCHEDULED, [...] to do so., Recovery (Recovery-Hospital Unit), Routine Group 2: glucose (GLUTOSE) 40% oral gelJump to med 15-30 g, Buccal, EVERY 30 MIN PRN, Starting on Meseret 06/21/18 at 1342, Until 06/24/18 at 1403, Low blood sugar, For BG 50-70 mg/dL: [...] a central line. For persistent hypoglycemia, consider longer- acting treatment for the duration of the active insulin. 1 tube contains 15 grams of glucose (net weight of tube = 37.5 grams., Recovery (Recovery-Hospital Unit), Routine Or dextrose 50% intravenous solution 25-50 mLJump to med 25-50 mL (12.5-25 g), Intravenous, EVERY 1 HOUR PRN, Starting on Emseret 06/21/18 at 1342, Until 06/24/18 at 1403, Low blood sugar, For BG 50-70 mg/dL: [...] for the duration of the active insulin., Recovery (Recovery-Hospital Unit), Routine Or glucagon (human recombinant) injection SolR 1 mgJump to med 1 mg, Intramuscular, EVERY 1 HOUR PRN, Starting on Meseret 06/21/18 at 1342, Until 06/24/18 at 1403, Low blood sugar, For BG 50-70 mg/dL: [...] for the duration of the active insulin., Recovery (Recovery-Hospital Unit), Routine documented in this encounter Care Teams Grant Specialist Relationship Specialty Start Date End Date Shirley Yu MD [address] [place] [address] PCP - General 11/19/14 documented as of this encounter
--- OUTSIDE RECORDS SUMMARY | 2023-12-13 18:28 | XMS_ITS | Encounter Summary ---
[place] [address] Care Team Providers Care Mimeographer Name Role Phone Shirely Yu MD Primary Care Provider [phone] Encounter Details Date Type Department Care Team (Latest Contact Info) Description 06/04/2018 1:20 PM EST Laboratory [place] [address] Right lower lobe pulmonary nodule Social History Tobacco Use Types Packs/Day Years [...] PM EDT Tech [place] [address] Marguerite Macias 12/19/2023 3:00 PM EDT Office [place] [address] Gardenia Golden, [facility] [address] 01/29/2024 1:[address] [place] [address] César Escobar MD [facility] [place] [address] 01/29/2024 2:30 PM EDT Office [place] [address] César Escobar MD [facility] THORACIC SURGERY [place], [place] [id number] documented as of this encounter Procedures Procedure Name Priority Date/Time Associated Diagnosis Comments ABORH RECHECK STATUS Routine 06/04/2018 1:47 PM EST HEMOGRAM Routine 06/04/2018 1:47 PM EST Right lower lobe pulmonary nodule DIFFERENTIAL, AUTOMATED Routine 06/04/2018 1:47 PM EST Right lower lobe pulmonary nodule TYPE AND SCREEN, SDP (FUTURE SURGERY, [facility] SAME DAY PROGRAM ONLY) Routine 06/04/2018 1:47 PM EST Right lower lobe pulmonary nodule ABO/RH TYPING Routine 06/04/2018 1:47 PM EST Right lower lobe pulmonary nodule CBC (WITH DIFF) Routine 06/04/2018 1:47 PM EST Right lower lobe pulmonary nodule ANTIBODY SCREEN Routine 06/04/2018 1:47 PM EST Right lower lobe pulmonary nodule COMPREHENSIVE METABOLIC PANEL Routine 06/04/2018 1:47 PM EST Right lower lobe pulmonary nodule documented in this encounter Results * ABORH Recheck Status (06/04/2018 1:47 PM EST) ABORH Type Recheck Completed [facility] Blood specimen (specimen) 06/04/2018 1:47 PM EST 06/04/2018 1:50 PM EST Narrative Resulting Agency Comment Spec In Lab César Escobar MD BLOOD BANK LAB O RDERABLES Performing Organization Address City/[facility]/ZIP Co de Phone Number [facility] [place] [address] * Differential, Automated (06/04/2018 1:47 PM EST) Neutrophil % 58.4 % [facility] Neutrophil Absolute 3.91 1.70 - 6.10 x10(3)/[facility] Lymph % 28.8 % [facility] Lymphocytes Abs 1.9 0.9 - 3.2 x10(3)/[facility] Monocyte % 5.7 % [facility] Monocyte Abs 0.4 0.3 - 0.9 x10(3)/[facility] Eos % 6.3 % [facility] Eosinophils Abs 0.4 0.0 - 0.4 x10(3)/[facility] Basophil % 0.7 % [facility] Baso Absolute 0.0 0.0 - 0.1 x10(3)/[facility] Immature Gran % 0.10 % [facility] Comment: Immature granulocytes(IG's)percentage and absolute count will include metamyelocytes, myelocytes, and promyelocytes. Blood smears from CBCs yielding IG's will be scanned manually for concordance. If this scan disagrees with the automated IG or if promyelocytes are noted, a manual differential will be performed. Immature Gran Absolute 0.01 0.00 - 0.04 x10(3)/[facility] Blood specimen (specimen) 06/04/2018 1:47 PM EST 06/04/2018 1:54 PM EST Narrative Resulting Agency Comment Spec In Lab César Escobar MD HEMATOLOGY ORDER FELIX Performing Organization Address City/[facility]/ZIP Co de Phone Number [facility] [place] [address] * Hemogram (06/04/2018 1:47 PM EST) [facility] White Blood Cell 6.7 4.0 - 9.5 x10(3)/[facility] Red Blood Cell 4.23 4.00 - 5.21 x10(6)/[facility] Hemoglobin 12.4 11.7 - 15.5 gm/dL [facility] Hematocrit 39.1 35.7 - 45.8 % [facility] Mean Cell Volume 92.4 82.6 - 94.4 fL [facility] Mean Cell Hemoglobin 29.3 27.1 - 32.0 pg [facility] Mean Cell Hemoglobin Concentration 31.7 31.7 - 35.0 gm/dL [facility] Platelet 280 145 - 357 x10(3)/[facility] RDW Standard Deviation 45.6 37.0 - 46.0 [facility] RDW coefficient of variation 13.5 11.5 - 14.1 % [facility] Mean Platelet Volume 9.8 7.6 - 12.9 fL [facility] NRBC% auto 0.0 % [facility] NRBC Absolute 0.000 0.000 - 0.000 x10(3)/[facility] Blood specimen (specimen) 06/04/2018 1:47 PM EST 06/04/2018 1:54 PM EST Narrative Resulting Agency Comment Spec In Lab César Escobar MD HEMATOLOGY ORDER FELIX [facility] [place] [address] * Antibody screen (06/04/2018 1:47 PM EST) [facility] Ab Screen Interp Negative [facility] Expires at 1049 on: 06/24/2018 [facility] Blood specimen (specimen) 06/04/2018 1:47 PM EST 06/04/2018 1:50 PM EST Narrative Resulting Agency Comment Spec In Lab César Escobar MD BLOOD BANK LAB O RDERABLES [facility] [place] [address] * ABO/Rh Typing (06/04/2018 1:47 PM EST) ABORH Type A Neg [facility] Blood specimen (specimen) 06/04/2018 1:47 PM EST 06/04/2018 1:50 PM EST Narrative Resulting Agency Comment Spec In Lab César Escobar MD BLOOD BANK LAB O RDERABLES Performing Organization Address City/[facility]/ZIP Co de Phone Number [facility] [place] [address] * (ABNORMAL) Comprehensive metabolic panel (non-fasting) (06/04/2018 1:47 PM EST) Glucose 159 65 - 199 mg/dL [facility] Comment:Diabetes: >=200 mg/d L plus symptoms Blood Urea Nitrogen 22(H) 8 - 18 mg/dL [facility] Creatinine 1.88(H) 0.70 - 1.20 mg/dL [facility] Sodium 143 135 - 145 mmol/L [facility] Potassium 4.9 3.5 - 5.0 mmol/L [facility] [...] mmol/L [facility] Anion Gap 14 5 - 15 mmol/L [facility] Calcium 9.5 8.5 - 10.5 mg/dL [facility] Protein, Total 7.2 6.1 - 8.0 gm/dL [facility] Albumin 4.1 3.2 - 5.2 gm/dL [facility] Aspartate Aminotransferase 15 0 - 30 unit/L [facility] Alanine Aminotransferase 8 0 - 30 unit/L [facility] Alkaline Phosphatase 101 40 - 104 unit/L [facility] Bilirubin, Total 0.4 0.2 - 1.3 mg/dL [facility] Est Glomerular Filtration Rate 29(L) >=60 mL/min/1. 73 m?? [facility] Comment: The eGFR was calculated using the CKD-EPI equation. As with all creatinine based estimates of kidney function, eGFR values calculated with the CKD-EPI equation are not accurate in patients with acute kidney failure, extremes of body mass or the acutely ill. [email or web address]/[email or web address]nk[facility] eGFR 33(L) >=60 mL/min/1. 73 m?? [facility] Comment: The eGFR was calculated using the CKD-EPI equation. As with all creatinine based estimates of kidney function, eGFR values calculated with the CKD-EPI equation are not accurate in patients with acute kidney failure, extremes of body mass or the acutely ill. [email or web address]/[facility] Blood specimen (specimen) 06/04/2018 1:47 PM EST 06/04/2018 1:54 PM EST Narrative Resulting Agency Comment Spec In Lab César Escobar MD CHEMISTRY ORDERA BLES [facility] [place] [address] documented in this encounter Visit Diagnoses Diagnosis Right lower lobe pulmonary nodule documented in this encounter Care Teams Mimeographer Relationship Specialty Start Date End Date Shirley Yu MD [address] [place] [address] PCP - General 11/19/14 documented as of this encounter
--- OUTSIDE RECORDS SUMMARY | 2023-12-13 18:28 | XMS_ITS | Encounter Summary ---
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 Social History Tobacco Use Types Packs/Day [...] PM EDT Tech [place] [address] Marguerite Macias 12/19/2023 3:00 PM EDT Office [place] [phone] Gardenia Golden APRN [facility] [address] VASCULAR SURGERY [place], [place] [id number] 01/29/2024 1:[address] [place] [address] César Escobar MD [facility] [place] [address] 01/29/2024 2:30 PM EDT Office [place] [address] César Escobar MD [facility] THORACIC SURGERY [place], [place] [id number] documented as of this encounter Procedures Procedure Name Priority Date/Time Associated Diagnosis Comments UNILATERAL BYPASS GRAFT ASSESS Routine 08/17/2018 1:39 PM EDT 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 SHEFALI, LEGS, MULTIPLE LEVELS Routine 08/17/2018 1:39 PM EDT 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 documented in this encounter Results * SHEFALI, legs, multiple levels (08/17/2018 1:39 PM EDT) Pathologist [facility] Text Report Department: Vascular Surgery Lab Patient: [id number] (JENNIFER SNYDER) CPT: 65113 ICD10: I70.411 Referring Physician: JAXON FONTAINE MD ?? Phone: Indications: ??F/U PAD, s/p angioplasty [facility] POP BPG Diabetes mellitus: Yes ICD10 Diagnosis Code: I70.411 Findings: Right ?Pressure (mm Hg) ?? SHEFALI ??Waveform ? TBI ?? Brachial Artery ?169 ? Dorsalis Pedis (Ankle) Artery ?152 ? 0.88 ??Biphasic ? Posterior Tibial (Ankle) Artery ??163 ? 0.94 ??Biphasic-Rev ? Great Toe ?109 ? 0.63 ?? Left ? Pressure (mm Hg) ?? SHEFALI ??Waveform ?TBI ?? Brachial Artery ?173 ? Dorsalis Pedis (Ankle) Artery ?102 ? 0.59 ??Shannon-Biphasic ? Posterior Tibial (Ankle) Artery ??102 ? 0.59 ??Shannon-Biphasic ? Great Toe ?70 ? 0.40 ?? Interpretation: RIGHT: Mild lower extremity arterial occlusive disease. No significant change in the ABIs when compared to most recent post-procedure exam done 2/19/19. Significant improvement in the TBI from exam done 03/14/18 that was done prior to procedure (toe pressure not obtained on most recent exam). LEFT: Moderate lower extremity arterial occlusive disease. No significant change from previous exams. Previous ABIs with change from previous value: [...] 0.35(-.18) ---- ??0.89(+.40) 0.95(+.39) ---- ? ---- Current ? 0.88(-.01) 0.94(-.01) 0.63 ? ---- Date ?LEFT DP ?LEFT PT ?LT [...] 0.31(-.03) ---- ??0.62(+.16) 0.62(+.16) ---- ? ---- Current ? 0.59(-.03) 0.59(-.03) 0.40 ? ---- Electronically Signed by: JAXON FONTAINE MD on 2018-08-17 02:41:30 PM [facility] VB Text Report End of Report [facility] 08/17/2018 1:39 PM EDT Jaxon Fontaine MD VASCULAR ORDERABLES [facility] * Unilat Bypass Graft Assess (08/17/2018 1:39 PM EDT) VB Text Report Department: Vascular Surgery Lab Patient: [id number] (JENNIFER SNYDER) CPT: 44893 ICD10: I70.411 Referring Physician: JAXON FONTAINE MD ?? Phone: Indications: ??S/P angioplasty R fem-ak pop bypass graft ICD10 Diagnosis Code: I70.411 Findings: Right Fem-Pop AK SEGMENT ? PSV [...] Right Distal Graft ?67 ?4 ? Interpretation: RIGHT: There are elevated velocities in the common femoral artery inflow near the proximal anastomosis with PSV 424 cm/s; previously 446 cm/s. The common femoral to above knee popliteal artery bypass graft is patent with no identifiable region of stenosis. Electronically Signed by: JAXON FONTAINE MD on 2018-08-17 02:42:36 PM [facility] VB Text Report End of Report [facility] 08/17/2018 1:39 PM EDT Jaxon Fontaine MD VASCULAR ORDERABLES [facility] documented in this encounter Visit Diagnoses Diagnosis Right lower lobe pulmonary nodule 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 Atherosclerosis of autologous vein bypass graft of extremities documented in this encounter Care Teams Lithography Contact Worker Relationship Specialty Start Date End Date Shirley Yu MD [address] [place] [address] PCP - General 11/19/14 documented as of this encounter
--- OUTSIDE RECORDS SUMMARY | 2023-12-13 18:28 | XMS_ITS | Encounter Summary ---
[place] [address] Care Team Providers Care Power Driven Brush Maker Name Role Phone Shirley Yu MD Primary Care Provider [phone] Encounter Details Date Type Department Care Team (Late st Contact Info) Description 06/04/2018 1:00 PM EST Clinical [place] [address] Social History Tobacco Use Types Packs/Day Years [...] as of this encounter Progress Notes * Pat Herrera RN - 06/04/2018 1:00 PM EST PAT questionnaire reviewed with patient while in Pre Admission testing. Pre- operative instruction booklet reviewed with patient. Reviewed importance of pain control and cough and deep breathing exercise during the post-operative period. Instructed patient on use of Hibiclens soap to shower with thenight before surgery or the morning of surgery. Pt verbalizes a good understanding of all information reviewed. PLAN Testing: Blood work amd type and screen performed while in PAT. Special medication instructions: Stop Pradaxa x 3 days. office will call her about Pletal Procedure date: 06/21 Luz documented in this encounter Plan of Treatment Upcoming Encounters Date Type Department Care Team (Late st Contact Info) Description 12/19/2023 1:00 PM EDT Tech [place] [address] Marguerite Macias 12/19/2023 3:00 PM EDT Office [place] [phone] Gardenia Golden APRN [facility] [place] [address] 01/29/2024 1:[address] [place] [phone] César Escobar MD [facility] [place] [address] 01/29/2024 2:30 PM EDT Office [place] [phone] César Escobar MD [facility] [place] [address] documented as of this encounter Visit Diagnoses Not on filedocumented in this encounter Care Teams Power Driven Brush Maker Relationship Specialty Start Date End Date Shirley Yu MD [address] [place] [address] PCP - General 11/19/14 documented as of this encounter
--- OUTSIDE RECORDS SUMMARY | 2023-12-13 18:28 | XMS_ITS | Encounter Summary ---
Author Organization [facility] [place] [address] Care Team Providers Care Clinical Marketing Manager Name Role Phone Shirley Yu MD Primary Care Provider [phone] Reason for Referral * Consultation (Routine) - Closed Specialty Diagnoses / Procedures Referred By Dominik mcleod Referred To Contact Pulmonology Diagnoses Right lower lobe pulmonary nodule César Escobar MD [facility] [place] [address] [facility] [address] [place] [address] Referral ID Status Reason Start Date Expiration Date V isits Requested Visits Authorized [id number] Closed Consult, Test & Treat 07/09/2018 07/09/2019 1 1 * Diagnostic Test (Routine) - Specialty Diagnoses / Procedures Referred By Dominik mcleod Referred To Contact Radiology Diagnoses Right lower lobe pulmonary nodule Procedures CT Chest wo Contrast (Generic) César Escobar MD [facility] [place] [address] [facility] [place] [address] Referral ID Status Reason Start Date Expiration Date Visits Requested Visits Authorized [id number] Specialty Service Requested 07/09/2018 07/09/2019 1 1 Reason for Visit * Reason Comments Follow-up Encounter Details Date Type Department Care Team (Late st Contact Info) Description 07/09/2018 11:00 AM EDT Office [place] [address] César Escobar MD [facility] [place] [address] Right lower lobe pulmonary nodule Social History [...] Sign Reading Time Taken Comments Blood Pressure 145/49 07/09/2018 10:47 AM EDT Pulse 88 07/09/2018 10:47 AM EDT Temperature 36.8 ??C (98.2 ??F) 07/09/2018 1 0:47 AM EDT Respiratory Rate 20 07/09/2018 10:4 7 AM EDT Oxygen Saturation 98% 07/09/2018 10: 47 AM EDT Inhaled Oxygen Concentration - - Weight 96.5 kg (212 lb 12.8 oz) 019 10:47 AM EDT Height 168.3 cm (5' 6.26) 07/09/2018 1 0:47 AM EDT Body Mass Index 34.08 07/09/2018 10:47 AM EDT documented in this encounter Patient Instructions * Patient Instructions* Kayla Poe, RN - 07/09/2018 11:00 AM EDT Thank you for visiting Dr. Escobar in clinic 07/09/18 Dr. Escobar would like to see you back in clinic in [address] Chest without contrast. You will hear from Pulmonology about your lung granulomas. You will receive a letter in the mail to schedule this appointment. ?? Exercise each day for 30 minutes [...] documented in this encounter Progress Notes * Quiana Gamble PA - 07/09/2018 11:00 AM EDT Thoracic Surgery Attending Outpatient Follow Up Note MD Quiana Bryant PA [place] [id number] FAX: Chief Complaint: s/p R VATS RLL wedge resection x 2 HPI: Ms. Snyder is a 57 yo female s/p R VATS RLL wedge resection x 2 for 9mm nodule with pathologynow showing granuloma. She was discharged on POD3 after her oxygen requirements returned to baseline RA with aggressive pulmonary toilet. She presents today for post operative follow up. She reports she is doing well overall. She c/o some pain under her right breast but this is improving and controlled with Tylenol BID. She also notes her baseline SOB and occasional cough. She deniesf/c/n/v/night sweats. Medications: Current Outpatient Medications on File Prior to Visit Medication Sig Dispense Refill ??? insulin aspart [...] Diabetic Supplies, Miscellan. Misc Form faxed to [email or web address] for pump supplies. 100 each 12 ??? [...] file prior to visit. Physical Exam: BP 145/49 (BP Location (NBP): Left arm, Patient Position: Sitting) Pulse 88 Temp 36.8 ??C (98.2??F) (Temporal) Resp 20 Ht 168.3 cm (5' 6.26) Wt 96.5 kg (212 lb 12.8 oz) SpO2 98% BMI 34.08 kg/m?? General Appearance: Alert, cooperative, no distress, appears stated age Nk: Supple, symmetrical, trachea midline Lungs: Clear to auscultation bilaterally, respirations unlabored, no wheezes, crackles or ronchi. Heart: Regular rate and rhythm, S1 and S2 normal, II/ KAZ, no rub, or gallop Abdomen: Soft, non-tender, bowel sounds active all four quadrants, no masses, no organomegaly Extremities: Extremities normal, atraumatic, no cyanosis or edema Wound/Incision: R VATS incisions clean, dry, intact, with evidence of good wound healing Imaging: I have independently visualized the following studies: CXR (07/09/18): Resolved trace left effusion. However, right pleural effusion is increased. Assessment: Jennifer Snyder is a 57 y.o. female s/p R VATS RLL wedge resection 2 for granuloma. She is currently recovering well from surgery but does have some residual nerve pain which should resolve in time,and increased right pleural effusion that is not limiting currently. Plan: 1. Referral to Pulmonology 2. 30 minutes of exercise daily at a minimum 3. RTC in [address] Chest without contrast 4. Call with any questions or if f/c/increased SOB/cough present GENTRY Mclaughlin 07/09/2018 Thoracic Surgery [facility] * César Escobar MD - 07/09/2018 11:00 AM EDT Thoracic surgery Hospital check I saw and examined Ms. Snyder with GENTRY De La Torre, and agree with her findings, assessment and plan. In brief: Chief complaint: Follow-up thoracoscopic right lower lobe wedge resections History of present illness: Ms. Snyder is a 57-year-old woman referred to me for multiple lung nodules. We performed a thoracoscopic right lower lobe wedge resection which was complicated by transient hypoxia but she was discharged on postoperative day 3. She comes in today feeling reasonably well. Her pain is adequately controlled and she has only her baseline level of dyspnea. Current Outpatient Medications on File Prior to Visit Medication Sig Dispense Refill ??? insulin aspart [...] Diabetic Supplies, Miscellan. Misc Form faxed to [email or web address] for pump supplies. 100 each 12 ??? [...] medications on file prior to visit. BP 145/49 (BP Location (NBP): Left arm, Patient Position: Sitting) Pulse 88 Temp 36.8 ??C (98.2??F) (Temporal) Resp 20 Ht 168.3 cm (5' 6.26) Wt 96.5 kg (212 lb 12.8 oz) SpO2 98% BMI 34.08 kg/m?? Physical exam: She appears well. She is alert, oriented and in no distress. Her lungs are clear, her heart is regular and her abdomen is nontender and nondistended. Imaging: Chest x-ray was obtained today which demonstrates no significant effusion or pneumothorax Pathology: I reviewed the patient's pathology results with her. She had multiple pulmonary granulomas. Assessment: 57-year-old woman with multiple lung nodules, with a thoracoscopic lung resection demonstrating notable granulomata. I recommended that we obtain a repeat chest CT in about 3 months, and that she follow-up with pulmonary medicine. Plan: Chest CT in 3 months, pulmonary medicine referral CÉSAR ESCOBAR MD documented in this encounter Plan of Treatment Upcoming Encounters Date Type Department Care Team (Late st Contact Info) Description 12/19/2023 1:00 PM EDT Tech [place] [phone] Marguerite Macias 12/19/2023 3:00 PM EDT Office [place] [phone] Gardenia Golden, LADARIUS [facility] [place] [address] 01/29/2024 1:[address] [place] [address] César Escobar MD [facility] [place] [address] 01/29/2024 2:30 PM EDT Office [place] [address] César Escobar MD [facility] [place] [address] Scheduled Orders Name Type Priority Associated Diagnoses Orde r Schedule CT Chest wo Contrast (Generic) Imaging Routine Right lower lobe pulmonary nodule Expected: 10/08/2018 (Approximate), Expires: 04/09/2019 Scheduled Referrals Name Type Priority Associated Diagnoses Order Schedule Referral to Pulmonology Outpatient Referral Routine Right lower lobe pulmonary nodule Ordered: 07/09/2018 documented as of this encounter Results * XR Chest PA [...] Diagnoses Diagnosis Right lower lobe pulmonary nodule Right lower lobe pulmonary nodule documented in this encounter Care Teams Clinical Marketing Manager Relationship Specialty Start Date End Date Shirley Yu MD [address] [place] [address] PCP - General 11/19/14 documented as of this encounter
--- OUTSIDE RECORDS SUMMARY | 2023-12-13 18:28 | XMS_ITS | Encounter Summary ---
Author Organization [facility] [place] [address] Care Team Providers Care Dried Fruit Washer Name Role Phone Shirley Yu MD Primary Care Provider [phone] Encounter Details Date Type Department Care Team (Late st Contact Info) Description 12/17/2018 1:15 PM EDT Office [place] [address] aKity Fontaine MD [facility] [place] [address] PVD (peripheral vascular disease) Social History Tobacco [...] Sign Reading Time Taken Comments Blood Pressure 174/66 12/17/2018 1:23 PM EDT Pulse 65 12/17/2018 1:22 PM EDT Temperature - - Respiratory Rate - - Oxygen Saturation - - Inhaled Oxygen Concentration - - Weight 96.2 kg (212 lb) 12/17/2018 1:22 PM EDT Height 170.2 cm (5' 7) 12/17/2018 1:22 PM EDT Body Mass Index 33.2 12/17/2018 1:22 PM EDT documented in this encounter Progress Notes * Kaity Fontaine MD - 12/17/2018 1:15 PM EDT Images from the original note were not included. Vascular Surgery Clinic Visit December 17, 2018 CC: Patient is a 58 y.o. female who is here for follow up of PVD. 2000 L CEA (Dr Fong) 2004 R CEA (Dr Avendano) ?? 2007 R fem-AK-pop bypass with GSV (Dr Avendano) 2012 L EIA stent (8x60 SE p7), RLE vein graft ROOM SERVICE MANAGER (Dr Avendano) ?? 04/27/18 R FELLER SEAM OPERATOR/proximal graft and distal graft/pop ROOM SERVICE MANAGER (6mm and 5mm balloons) ?? Presents for scheduled follow up visit. Continues to deny RLE claudication symptoms. No rest pain or non-healing wounds. Denies any symptoms in LLE. ?? ROS is negative for history of CAD, ID, CP, or SOB. No history suggestive of stroke, TIA, or amaurosis fugax. Has DM, on??insulin pump. Is a past smoker, having quit in??2014. ?? PMH:??HTN, HLD, DM, hyperthyroidism, RLL wedge resection for pulmonary granuloma 06/25, GINGER/BSO '02 All:??sulfa, PCN Meds include:??asa, pradaxa, pletal, coreg, losartan, zocor, protonix, synthroid, insulin, celexa ?? Tob:??quit 2014 FHx:??neg for coagulopathy Physical Exam: On exam,??she??is in NAD, RRR, CTA B, Abd soft/NT/ND.?? Palpable pedal pulses on the right. Well-healed right groin incision. No open lesions on either foot. Labs: Crm Administrator (06/24/18): 1.75 Lipids (10/14/14): TC 160, HDL 78, LDL 109 HbA1C (01/25/18): 8.4 Imaging studies: I have personally reviewed the following imaging studies. RLE graft duplex (12/17/18): Findings: Right Fem-Pop AK SEGMENT ? PSV [...] ? 124 ?5 ??Popliteal, Above Knee ? SHEFALI (12/17/18): 0.90/0.62 A/P: 58yo female with persistently elevated velocity in the inflow R FELLER SEAM OPERATOR where there appears to be a dissection - will plan for open revision. Her daughter is having surgery in mid-January - will schedule for later in January, tentatively 02/04/19. -hold pradaxa and pletal prior to surgery (2 days prior, 7 days prior, respectively) -redo R groin dissection, R femoral endarterectomy vs bypass, tentatively scheduled for 02/04/19. Kaity Fontaine MD documented in this encounter Plan of Treatment Upcoming Encounters Date Type Department Care Team (Late st Contact Info) Description 12/19/2023 1:00 PM EDT Tech [place] [address] Marguerite Macias 12/19/2023 3:00 PM EDT Office [place] [phone] Gardenia Golden, LADARIUS [facility] [place] [address] 01/29/2024 1:[address] [place] [place] [phone] César Escobar MD [facility] [place] [address] 01/29/2024 2:30 PM EDT Office [place] [phone] César Escobar MD [facility] [place] [address] documented as of this encounter Visit Diagnoses Diagnosis PVD (peripheral vascular disease) Peripheral vascular disease, unspecified documented in this encounter Care Teams Dried Fruit Washer Relationship Specialty Start Date End Date Shirley Yu MD [address] [place] [address] PCP - General 11/19/14 documented as of this encounter
--- OUTSIDE RECORDS SUMMARY | 2023-12-13 18:28 | XMS_ITS | Encounter Summary ---
Author Organization [facility] Address [facility] [address] Care Team Providers Care Senior Water/Wastewater Engineer Name Role Phone Shirley Yu MD Primary Care Provider [phone] Reason for Visit * Auth/Cert Specialty Diagnoses / Procedures Referred By Dominik mcleod Referred To Contact Diagnoses Lung nodule lung nodule Procedures PRO THORACOSCOPY SURG LOBECTOMY PRO BRONCHOSCOPY, DIAGNOSTIC @THORACOSCOPY,SURGICAL,W\LOBECTOMY, TOTAL OR SEGMENTAL (WRVU 24.64) BRONCHOSCOPY, DIAGNOSTIC (WRVU 2.78) Referral ID Status Reason Start Date Expiration Date Visits Re quested Visits Authorized [id number] 1 1 Encounter Details Date Type Department Care Team (Late st Contact Info) Description 06/21/2018 11:41 AM EDT - 06/21/2018 4:18 PM EDT [place] [address] César Zarco MD [facility] [place] [address] BRONCHOSCOPY, DIAGNOSTIC (WRVU 2.53) Social History Tobacco Use Types Packs/Day Years [...] Sign Reading Time Taken Comments Blood Pressure 130/48 06/21/2018 4:00 PM EDT Pulse 51 06/21/2018 4:00 PM EDT Temperature 36.5 ??C (97.7 ??F) 06/21/2018 4:00 PM ED T Respiratory Rate 14 06/21/2018 4:00 PM EDT Oxygen Saturation 96% 06/21/2018 4:00 PM EDT Inhaled Oxygen Concentration - - Weight 96 kg (211 lb 11.2 oz) 06/21/2018 10:55 A M EDT Height 170.2 cm (5' 7) 06/21/2018 10:55 AM EDT Body Mass Index 33.34 06/21/2018 10:55 AM EDT documented in this encounter Discharge Summaries * Vinay Conley - 06/24/2018 9:30 AM EDT Department of [...] Hospital Course: Jennifer Snyder was admitted to [facility] on 06/21/2018 via the Same Day Program. [...] Diabetic Supplies, Miscellan. Misc Form faxed to [employer] for pump supplies. Quantity: 100 each Refills: [...] a nurse in the Thoracic Clinic at [phone]. After hours or on weekends or holidays please call: [phone] and ask to speak to the Thoracic Surgeon seed cone picker. Exercise & Activity Level: As you recover [...] PM Lulu Reveles [place] [facility] 08/17/2018 2:30 PM Kaity Fontaine MD [facility] General Instructions None Future Appointments and Orders Future Appointments and Orders Future Appointments Provider Department Dept Phone 08/17/2018 1:30 PM Lulu Reveles [place] [facility] [place] Arrive at: Testing Specialist Area [phone] 08/17/2018 2:30 PM Kaity Fontaine MD [facility] [place] Arrive at: Testing Specialist Area [phone] Provider Contact Information: Primary Care Provider: Shirley Yu MD [phone] Discharge References/Attachments: Discharge References/Attachments None For questions regarding this document or issues relating to this hospitalization on the Thoracic Surgery Service, please contact Dr. Zarco's office at . Signed: VINAY CONLEY MD 06/24/2018 Thoracic Surgery [facility] CC: PCP: Shirley Yu MD Referring: Kaity Fontaine Md [facility] [place] [address] documented in this encounter Discharge Instructions * Patient Instructions* Vinay Conley - 06/22/2018 11:32 AM EDT Call if you have a fever of greater than 101 degrees, shaking chills, develop redness or drainage from your incision site(s), or if you have questions. During normal business hours, Monday- Monday 8:00 a.m.-5:00 p.m., please call to speak to a nurse in the Thoracic Clinic at [phone]. After hours or on weekends or holidays please call: [phone] and ask to speak to the Thoracic Surgeon seed cone picker. Exercise & Activity Level: As you recover [...] Lulu Reveles [place] [facility] 08/17/2018 2:30 PM Kaity Fontaine MD [facility] documented in this encounter Medications at Time of Discharge Medication Sig Dispensed Refills Start Date End Date Magnesium Oxide 500 mg magnesium tablet Take 500 mg by mouth daily. 01/07/2016 citalopram (CeleXA) 20 mg Tablet Take by mouth. 08/13/2012 ONETOUCH ULTRA TEST Strip 1 strip by Other route 4 times daily. 4 11/23/2016 pantoprazole (PROTONIX) 40 mg Tablet, Delayed Release (E.C.) TAKE ONE TABLET BY MOUTH TWICE A DAY 98 07/26/2016 Diabetic Supplies, Miscellan. Misc Form faxed to [employer] for pump supplies. 100 each 12 03/23/2015 losartan (COZAAR) 100 mg Tablet Take 50 mg by mouth daily. 08/11/2014 aspirin 81 mg EC tablet Take 81 mg by mouth daily. insulin lispro (HUMALOG) 100 unit/mL injection Inject 55-60 Units subcutaneously continuous. Via insulin pump insulin lispro (HumaLOG) Solution 24/7 01/07/2016 3 levothyroxine (SYNTHROID) 125 mcg Tablet TAKE [...] of this encounter Progress Notes * Josee Martínez LNA - 06/24/2018 10:26 AM EDT Please see ED for assessments. Patient successful with walking trial, [...] Vinay Conley - 06/23/2018 9:37 AM EDT [facility] Department of Thoracic Surgery Inpatient Progress Note Patient Name: Jennifer Snyder Patient : 1960 Patient Patient Location: [address] [place] [address] Attending Surgeon: CÉSAR ZARCO ID: Jennifer Snyder [...] Encounter Date Admission (Current) from 06/21/[address] [place] [address] Office Visit from 06/04/2018 in [facility] Surgery at [place] Weight 97 kg (213 lb 13.5 oz) [...] QTC Calculated (Bezet) 424 ms Calculated P [place] 61 degrees Calculated R [place] 7 degrees Calculated T [place] 59 degrees INTERPRETATION Sinus bradycardia Otherwise normal ECG When compared with ECG of 14-NOV-2007 12:49, No significant change was found POCT Glucose Result Value Ref Range POC Glucose 157 65 - 199 mg/dL POCT Glucose Result Value Ref Range POC Glucose 193 65 - 199 mg/dL Surgical Pathology Report Result Value Ref Range Surgical Pathology Report [id number] Location: OR; OR22; A The signing pathologist has (i) examined the relevant preparation(s) for the specimen(s) and (ii) rendered or confirmed the diagnosis(es). . Frozen Section FROZEN SECTION DIAGNOSIS A - Right lower lobe wedge for frozen section - calcified nodules, favor old hyalinized granulomas 06/21/18 13:13 Electronically signed by: Jesusita Crowley DO Verified: 06/21/2018 Pathologist Performed at: -[facility] Dept. of Pathology, [place], [place] This intraoperative consultation should be interpreted [...] CONLEY MD 06/23/2018 Thoracic Surgery Service Pager [phone] Associated attestation - Pavan Soriano MD - [...] Pavan Soriano MD Thoracic Surgery * Joanna Medeiros RN - 06/22/2018 6:38 PM EDT Walk [...] Cuellar APRN - 06/22/2018 11:39 AM EDT [facility] Department of Thoracic Surgery Inpatient Progress Note Patient Name: Jennifer Snyder Patient : 1960 Patient Patient Location: [address] Attending Surgeon: CÉSAR ZARCO ID: Jennifer [...] Admission (Current) from 06/21/2018 in PACU at [facility] Office Visit from 06/04/2018 in Thoracic Surgery at [place] Weight 96 kg (211 lb 11.2 oz) [...] QTC Calculated (Bezet) 424 ms Calculated P [place] 61 degrees Calculated R [place] 7 degrees Calculated T [place] 59 degrees INTERPRETATION Sinus bradycardia Otherwise normal ECG When compared with ECG of 14-NOV-2007 12:49, No significant change was found POCT Glucose Result Value Ref Range POC Glucose 157 65 - 199 mg/dL POCT Glucose Result Value Ref Range POC Glucose 193 65 - 199 mg/dL Surgical Pathology Report Result Value Ref Range Surgical Pathology Report [id number] Location: OR; OR22; A The signing pathologist has (i) examined the relevant preparation(s) for the specimen(s) and (ii) rendered or confirmed the diagnosis(es). . Frozen Section FROZEN SECTION DIAGNOSIS A - Right lower lobe wedge for frozen section - calcified nodules, favor old hyalinized granulomas 06/21/18 13:13 Electronically signed by: Jesusita Crowley DO Verified: 06/21/2018 Pathologist Performed at: -[facility] Dept. of Pathology, [place], [place] This intraoperative consultation should be interpreted [...] PACU, floor status, full code Meeta Cuellar, CATH LAB RADIOLOGY TECHNICIAN 06/22/2018 Thoracic Surgery Service Pager [phone] * Nathaly Castro RN - 06/22/2018 11:29 AM EDT Break coverage for Diana Kent RN Hand off received. O2 sat staying around 88%, with desats as low as 83%. On 2 liters NC. Lungs have crackles bilat 2/3up * Fabiana Kent RN - 06/22/2018 7:45 AM EDT 0725: Report received from TAMEKA Joreg. Patient resting comfortably in bed. Chest tube to low continuous suction. Right chest dressings CDI. Up to bedside commode with 1 person assist. Tolerating breakfast well. 0900: Team at bedside 1200: MD Middleton at bedside. Made aware of coarse LS post water seal. Chest removed by MD at bedside. 1315: Repeat chest x ray [...] Result Value Ref Range Surgical Pathology Report [id number] Location: OR; OR22; A The signing pathologist has (i) examined the relevant preparation(s) for the specimen(s) and (ii) rendered or confirmed the diagnosis(es). . Frozen Section FROZEN SECTION DIAGNOSIS A - Right lower lobe wedge for frozen section - calcified nodules, favor old hyalinized granulomas 06/21/18 13:13 Electronically signed by: Jesusita Crowley DO Verified: 06/21/2018 Pathologist Performed at: -[facility] Dept. of Pathology, [place], [place] This intraoperative consultation should be interpreted [...] documented in this encounter H&P Notes * Vinay Conley - 06/21/2018 11:16 AM EDT Jennifer Snyder [...] Handling Outcome: Ongoing (Interventions Implemented as Appropriate) 06/23/1872906/23/18 0806/23/18 1200 V[place]quez Fall Risk History of Falling -- 0 -- Secondary Diagnosis -- 15 -- Ambulatory Aids -- 0 -- Intravenous Therapy/Heparin/Saline Lock -- 20 -- Gait/Transferring -- 0 -- Mental Status -- 0 -- Score -- 35 -- OTHER Vazquez Fall Risk -- Med -- Restraint Interventions Safety Promotion/Fall Prevention activity supervised;fall prevention program maintained;nonskid shoes/slippers when out of bed;safety round/check completed -- -- Positioning Body Position supine, head elevated -- -- Activity Activity Type -- -- ambulated in wheeler Activity Assistance Provided -- -- assistance, stand-by Assistive Device Utilized -- -- oxygen Goal: Infection Control Outcome: Ongoing (Interventions Implemented as Appropriate) 06/23/1872906/23/18811 Safety Interventions Isolation Precautions standard precautions maintained [...] Discharge Disposition: (P) home with assist Pager: [phone] HUAN PATTERSON, OT 06/23/2018 Occupational Therapy Rehabilitation Department 2017 [...] y.o. female who is 2 Days Post-Op s/pRisiddhartht VATs, RLL wedge x2. Precautions Comments O2 [...] Assessment/Treatment (Group);Gait Assessment/Treatment (Group) Transfer Assessment/Treatment Bed-Chair [place] (Transfers) conditional independence Chair-Bed [place] (Transfers) conditional independence Ypo-Afboe-Aej Assistive Device (Transfers) (2 liters O2 and dropping Ow to 89 percent) [place] (Sit-Stand Transfers) independent [place] (Stand-Sit Transfers) independent Gait Assessment/Treatment [place] (Gait) conditional independence Assistive Device (Gait) (2 liters O2) Distance in Feet (Gait) 150 ADL Assessment/Intervention Additional Documentation Bathing Assessment/Training (Group);Lower Body Dressing Assessment/Training (Group) Bathing Assessment/Training Comment (Bathing) Discussed use of shower chair and energy conservation. Lower Body Dressing Assessment/Training Position (LB Dressing) sitting;standing [place] Level (LB Dressing) conditional independence Coping Observed Emotional State accepting Plan of Care Review Plan Of Care Reviewed With patient Clinical Impression Criteria for Skilled Therapeutic Interventions Met no;treatment indicated Therapy Frequency evaluation only Anticipated Equipment Needs at Discharge (shower chair) Anticipated Discharge Disposition home with assist * Op Note - César Zarco MD - 06/21/2018 2:30 PM EDT [facility] Operative Note Patient Name: Jennifer Snyder : [id number] MR#: [id number] Case Date: 06/21/2018 Surgeon: Surgeon(s) and Role: [...] [place] [address] lung nodule Right Lower Lobe Wedge excision YES, Please perform frozen section No 06/21/2018 12:43 PM Number of tissue samples (in container) 1 Time specimen removed from patient: 12:42 PM SPECIMEN TO PATHOLOGY Additional Right Lower Lobe Wedge [address] OR 22 lung nodule Addiotnal Right Lower Lobe Wedge excision No 06/21/2018 1:18 PM Time specimen removed from patient: 1:17 PM Number of tissue samples (in container) 1 Drains: 28 Citizen [place] chest tube, right Surgical Closure: Primary Closure [...] scan with identified and grasped with a John clamp. This area was elevated, and excised [...] injecteddirectly into the incision sites. A 28 [place] chest tube was placed through the anterior inferior port site, and after the wound protector was removed hemostasis was achieved with the electrocautery.The lung was allowed to reexpand under direct vision and the patient was then allowed to emerge from anesthesia. She was extubated in the operating room without incident and was transported to the [facility] area in stable condition. All of the sponge, needle and instrument counts were correct, and is the attending surgeon I was present scrubbed at the bedside throughout the case. CÉSAR ZARCO MD 06/21/2018 * Brief Op Note - Vinay Conley - 06/21/2018 2:15 PM EDT Brief Operative Note Patient Name: Jennifer Snyder : [id number] MR#: [id number] Case Date: 06/21/2018 Surgeon: Surgeon(s) and Role: [...] [place] [address] lung nodule Right Lower Lobe Wedge excision YES, Please perform frozen section No 06/21/2018 12:43 PM Number of tissue samples (in container) 1 Time specimen removed from patient: 12:42 PM SPECIMEN TO PATHOLOGY Additional Right Lower Lobe Wedge [address] OR 22 lung nodule Addiotnal Right Lower [...] PM EDT Tech [place] [phone] Marguerite Macias 12/19/2023 3:00 PM EDT Office [place] [phone] Gardenia Golden, [facility]ADAR[facility] [place] [address] 01/29/2024 1:[address] [place] [place] [address] César Zarco MD [facility] [place] [address] 01/29/2024 2:30 PM EDT Office Visit Thoracic Surgery at [facility] [place] [address] César Zarco MD [facility] [place] [address] documented as of this encounter Procedures Procedure [...] Glucose, POC 289(H) 65 - 199 mg/dL [facility] Comment: Supplemental ranges: <140 mg/dL before meals <180 mg/dL all other times of the day Blood specimen (specimen) 06/24/2018 11:09 AM EDT 06/24/2018 11:09 AM EDT César Zarco MD POINT OF CARE TE ST ORDERABLES Performing Organization Address [facility]/ZIP Co de Phone Number [facility] [place] [address] * POCT Glucose (06/24/2018 7:33 AM EDT) Glucose, POC 128 65 - 199 mg/dL [facility] Comment: Supplemental ranges: <140 mg/dL before meals <180 mg/dL all other times of the day Blood specimen (specimen) 06/24/2018 7:33 AM EDT 06/24/2018 7:33 AM EDT César Zarco MD POINT OF CARE OSMANY ST ORDERABLES Performing Organization Address [facility] Co de Phone Number [facility] [place] [address] * XR Chest PA & Lateral (Generic) [...] EDT) Glucose 127 65 - 199 mg/dL [facility] Comment:Diabetes: >=200 mg/d L plus symptoms Blood Urea Nitrogen 32(H) 8 - 18 mg/dL [facility] Creatinine 1.75(H) 0.70 - 1.20 mg/dL [facility] Sodium 142 135 - 145 mmol/L [facility] Potassium 4.1 3.5 - 5.0 mmol/L [facility] Est Glomerular Filtration Rate 31(L) >=60 mL/min/1. 73 m?? [facility] Comment: The eGFR was calculated using the CKD-EPI equation. As with all creatinine based estimates of kidney function, eGFR values calculated with the CKD-EPI equation are not accurate in patients with acute kidney failure, extremes of body mass or the acutely ill. http://Refresh Body/[facility] eGFR 36(L) >=60 mL/min/1. 73 m?? [facility] Comment: The eGFR was calculated using the CKD-EPI equation. As with all creatinine based estimates of kidney function, eGFR values calculated with the CKD-EPI equation are not accurate in patients with acute kidney failure, extremes of body mass or the acutely ill. http://Refresh Body/[facility]nk[facility] Blood specimen (specimen) 06/24/2018 4:11 AM EDT 06/24/2018 4:46 AM EDT Narrative Resulting Agency Comment Spec In Lab César Zarco MD CHEMISTRY ORDERA BLES [facility] [place] [address] * POCT Glucose (06/24/2018 4:09 AM EDT) Glucose, POC 129 65 - 199 mg/dL [facility] Comment: Supplemental ranges: <140 mg/dL before meals <180 mg/dL all other times of the day Blood specimen (specimen) 06/24/2018 4:09 AM EDT 06/24/2018 4:09 AM EDT César Zarco MD POINT OF CARE TE ST ORDERABLES [facility] [place] [address] * POCT Glucose (06/23/2018 11:52 PM EDT) Glucose, POC 193 65 - 199 mg/dL [facility] Comment: Supplemental ranges: <140 mg/dL before meals <180 mg/dL all other times of the day Blood specimen (specimen) 06/23/2018 11:52 PM EDT 06/23/2018 11:52 PM EDT César Zarco MD POINT OF CARE TE ST ORDERABLES [facility] [place] [address] * (ABNORMAL) Basic Metabolic Panel (non-fasting) (06/23/2018 7:43 PM EDT) Glucose 132 65 - 199 mg/dL [facility] Comment:Diabetes: >=200 mg/d L plus symptoms Blood Urea Nitrogen 35(H) 8 - 18 mg/dL [facility] Creatinine 1.88(H) 0.70 - 1.20 mg/dL [facility] Sodium 142 135 - 145 mmol/L [facility] Potassium 3.9 3.5 - 5.0 mmol/L [facility] [...] of body mass or the acutely ill. http://Refresh Body/[facility]nk[facility] eGFR 33(L) >=60 mL/min/1. 73 m?? [facility] Comment: The eGFR was calculated using the CKD-EPI equation. As with all creatinine based estimates of kidney function, eGFR values calculated with the CKD-EPI equation are not accurate in patients with acute kidney failure, extremes of body mass or the acutely ill. http://Refresh Body/[facility] Blood specimen (specimen) 06/23/2018 7:43 PM EDT 06/23/2018 7:48 PM EDT Narrative Resulting Agency Comment Spec In Lab César Zarco MD CHEMISTRY ORDERA BLES Performing Organization Address City/[facility]/ZIP Co de Phone Number [facility] [place] [address] * POCT Glucose (06/23/2018 7:22 PM EDT) Glucose, POC 165 65 - 199 mg/dL [facility] Comment: Supplemental ranges: <140 mg/dL before meals <180 mg/dL all other times of the day Blood specimen (specimen) 06/23/2018 7:22 PM EDT 06/23/2018 7:22 PM EDT César Zarco MD POINT OF CARE TE ST ORDERABLES Performing Organization Address [facility]/ZIP Co de Phone Number [facility] [place] [address] * POCT Glucose (06/23/2018 4:34 PM EDT) Glucose, POC 156 65 - 199 mg/dL [facility] Comment: Supplemental ranges: <140 mg/dL before meals <180 mg/dL all other times of the day Blood specimen (specimen) 06/23/2018 4:34 PM EDT 06/23/2018 4:34 PM EDT César Zarco MD POINT OF CARE TE ST ORDERABLES [facility] [place] [address] * (ABNORMAL) POCT Glucose (06/23/2018 1:38 PM EDT) Glucose, POC 226(H) 65 - 199 mg/dL [facility] Comment: Supplemental ranges: <140 mg/dL before meals <180 mg/dL all other times of the day Blood specimen (specimen) 06/23/2018 1:38 PM EDT 06/23/2018 1:38 PM EDT César Zarco MD POINT OF CARE TE ST ORDERABLES [facility] [place] [address] * (ABNORMAL) Differential, Automated (06/23/2018 10:12 AM EDT) Pathologist [facility] Neutrophil % 78.2 % [facility] Neutrophil Absolute 7.62(H) 1.70 - 6.10 x10(3)/mc L [facility] Lymph % 9.2 % [facility] Lymphocytes Abs 0.9 0.9 - 3.2 x10(3)/mc L [facility] Monocyte % 5.9 % [facility] Monocyte Abs 0.6 0.3 - 0.9 x10(3)/mc L [facility] Eos % 6.2 % [facility] Eosinophils Abs 0.6(H) 0.0 - 0.4 x10(3)/mc L [facility] Basophil % 0.3 % [facility] Baso Absolute 0.0 0.0 - 0.1 x10(3)/mc L [facility] Immature Gran % 0.20 % [facility] Comment: Immature granulocytes(IG's)percentage and absolute count will include metamyelocytes, myelocytes, and promyelocytes. Blood smears from CBCs yielding IG's will be scanned manually for concordance. If this scan disagrees with the automated IG or if promyelocytes are noted, a manual differential will be performed. Immature Gran Absolute 0.02 0.00 - 0.04 x10(3)/ L [facility] Blood specimen (specimen) 06/23/2018 10:12 AM EDT 06/23/2018 10:27 AM EDT Narrative Resulting Agency Comment Spec In Lab Vinay Conley MD HEMATOLOGY ORDERA BLES [facility] [place] [address] * (ABNORMAL) Hemogram (06/23/2018 10:12 AM EDT) White Blood Cell 9.8(H) 4.0 - 9.5 x10(3)/[facility] Red Blood Cell 3.71(L) 4.00 - 5.21 x10(6)/[facility] Hemoglobin 11.2(L) 11.7 - 15.5 gm/dL [facility] Hematocrit 35.4(L) 35.7 - 45.8 % [facility] Mean Cell Volume 95.4(H) 82.6 - 94.[address] [facility] Mean Cell Hemoglobin 30.2 27.1 - 32.[address] [facility] Mean Cell Hemoglobin Concentration 31.6(L) 31.7 - 35.0 gm/dL [facility] Platelet 214 145 - 357 x10(3)/[facility] LABORATORY RDW Standard Deviation 48.0(H) 37.0 - 46.0 [facility]ATORY RDW coefficient of variation 13.6 11.5 - 14.1 % [facility] Mean Platelet Volume 10.5 7.6 - 12.9 [facility] LABORATORY NRBC% auto 0.0 % [facility] NRBC Absolute 0.000 0.000 - 0.000 x10(3)/[facility] Blood specimen (specimen) 06/23/2018 10:12 AM EDT 06/23/2018 10:27 AM EDT Narrative Resulting Agency Comment Spec In Lab Vinay Conley MD HEMATOLOGY ORDERA BLES [facility] [place] [address] * (ABNORMAL) Basic Metabolic Panel (non-fasting) (06/23/2018 10:12 AM EDT) Glucose 187 65 - 199 mg/dL [facility] Comment:Diabetes: >=200 mg/d L plus symptoms Blood Urea Nitrogen 33(H) 8 - 18 mg/dL [facility] Creatinine 1.92(H) 0.70 - 1.20 mg/dL [facility] Sodium 139 135 - 145 mmol/L [facility] Potassium 4.4 3.5 - 5.0 mmol/L [facility] Est Glomerular Filtration Rate 28(L) >=60 mL/min/1. 73 m?? [facility] Comment: The eGFR was calculated using the CKD-EPI equation. As with all creatinine based estimates of kidney function, eGFR values calculated with the CKD-EPI equation are not accurate in patients with acute kidney failure, extremes of body mass or the acutely ill. http://Refresh Body/[facility] eGFR 32(L) >=60 mL/min/1. 73 m?? [facility] Comment: The eGFR was calculated using the CKD-EPI equation. As with all creatinine based estimates of kidney function, eGFR values calculated with the CKD-EPI equation are not accurate in patients with acute kidney failure, extremes of body mass or the acutely ill. [email or web address] Blood specimen (specimen) 06/23/2018 10:12 AM EDT 06/23/2018 10:27 AM EDT Narrative Resulting Agency Comment Spec In Lab César Zarco MD CHEMISTRY ORDERA BLES [facility] [place] [address] * POCT Glucose (06/23/2018 3:50 AM EDT) Glucose, POC 121 65 - 199 mg/dL [facility] Comment: Supplemental ranges: <140 mg/dL before meals <180 mg/dL all other times of the day Blood specimen (specimen) 06/23/2018 3:50 AM EDT 06/23/2018 3:50 AM EDT César Zarco MD POINT OF CARE TE ST ORDERABLES Performing Organization Address [facility]/ZIP Co de Phone Number [facility] [place] [address] * POCT Glucose (06/22/2018 11:16 PM EDT) Glucose, POC 125 65 - 199 mg/dL [facility] Comment: Supplemental ranges: <140 mg/dL before meals <180 mg/dL all other times of the day Blood specimen (specimen) 06/22/2018 11:16 PM EDT 06/22/2018 11:16 PM EDT César Zarco MD POINT OF CARE TE ST ORDERABLES Performing Organization Address City/[facility]/ZIP Co de Phone Number [facility] [place] [address] * POCT Glucose (06/22/2018 8:47 PM EDT) Glucose, POC 162 65 - 199 mg/dL [facility] Comment: Supplemental ranges: <140 mg/dL before meals <180 mg/dL all other times of the day Blood specimen (specimen) 06/22/2018 8:47 PM EDT 06/22/2018 8:47 PM EDT César Zarco MD POINT OF CARE TE ST ORDERABLES Performing Organization Address [facility] Co de Phone Number [facility] [place] [address] * POCT Glucose (06/22/2018 4:29 PM EDT) Glucose, POC 183 65 - 199 mg/dL [facility] Comment: Supplemental ranges: <140 mg/dL before meals <180 mg/dL all other times of the day Blood specimen (specimen) 06/22/2018 4:29 PM EDT 06/22/2018 4:29 PM EDT César Zarco MD POINT OF CARE TE ST ORDERABLES Performing Organization Address [facility] de Phone Number [facility] [place] [address] * XR Chest PA & Lateral (Generic) [...] number below. ? Electronically signed by: DENNIS Brady [facility] ([phone]), at 06/22/2018 3:41 PM Procedure Note Elvira Diehl MD - 06/22/2018 [...] this report, please contact the number below. Electronically signed by: DENNIS Brady [facility]([phone]), at 06/22/2018 3:41 PM César Zarco MD IMG DX ORDERABLE S * POCT Glucose (06/22/2018 12:22 PM EDT) Glucose, POC 174 65 - 199 mg/dL [facility] Comment: Supplemental ranges: <140 mg/dL before meals <180 mg/dL all other times of the day Blood specimen (specimen) 06/22/2018 12:22 PM EDT 06/22/2018 12:22 PM EDT César Zarco MD POINT OF CARE TE ST ORDERABLES [facility] [place] [address] * POCT Glucose (06/22/2018 7:52 AM EDT) Glucose, POC 136 65 - 199 mg/dL [facility] Comment: Supplemental ranges: <140 mg/dL before meals <180 mg/dL all other times of the day Blood specimen (specimen) 06/22/2018 7:52 AM EDT 06/22/2018 7:52 AM EDT César Zarco MD POINT OF CARE TE ST ORDERABLES [facility] [place] [address] * XR Chest PA & Lateral (Generic) [...] POCT Glucose (06/22/2018 4:44 AM EDT) Pathologist [facility] Glucose, POC 98 65 - 199 mg/dL [facility] Comment: Supplemental ranges: <140 mg/dL before meals <180 mg/dL all other times of the day Blood specimen (specimen) 06/22/2018 4:44 AM EDT 06/22/2018 4:44 AM EDT César Zarco MD POINT OF CARE TE ST ORDERABLES Performing Organization Address City/State/[facility] Co de Phone Number [facility] [place] [address] * (ABNORMAL) Differential, Automated (06/22/2018 4:40 AM EDT) Neutrophil % 79.3 % [facility] Neutrophil Absolute 7.57(H) 1.70 - 6.10 x10(3)/mc L [facility] Lymph % 12.9 % [facility] Lymphocytes Abs 1.2 0.9 - 3.2 x10(3)/mc L [facility] Monocyte % 5.4 % [facility] Monocyte Abs 0.5 0.3 - 0.9 x10(3)/[facility] LABORAT[facility] Eos % 1.8 % [facility] Eosinophils Abs 0.2 0.0 - 0.4 x10(3)/[facility] Basophil % 0.3 % [facility] Baso Absolute 0.0 0.0 - 0.1 x10(3)/[facility] Immature Gran % 0.30 % [facility] Comment: Immature granulocytes(IG's)percentage and absolute count will include metamyelocytes, myelocytes, and promyelocytes. Blood smears from CBCs yielding IG's will be scanned manually for concordance. If this scan disagrees with the automated IG or if promyelocytes are noted, a manual differential will be performed. Immature Gran Absolute 0.03 0.00 - 0.04 x10(3)/[facility] LABORATORY Blood specimen (specimen) 06/22/2018 4:40 AM EDT 06/22/2018 4:53 AM EDT Narrative Resulting Agency Comment Spec In Lab Shiv Middleton MD HEMATOLOGY ORDERABLE S [facility] [place] [address] * (ABNORMAL) Hemogram (06/22/2018 4:40 AM EDT) White Blood Cell 9.6(H) 4.0 - 9.5 x10(3)/[facility] LABORATORY Red Blood Cell 3.87(L) 4.00 - 5.21 x10(6)/[facility] Hemoglobin 11.5(L) 11.7 - 15.5 gm/dL [facility] Hematocrit 36.6 35.7 - 45.8 % [facility] Mean Cell Volume 94.6(H) 82.6 - 94.[address] [facility] Mean Cell Hemoglobin 29.7 27.1 - 32.[address] [facility] Mean Cell Hemoglobin Concentration 31.4(L) 31.7 - 35.0 gm/dL [facility] Platelet 227 145 - 357 x10(3)/mc L [facility] RDW Standard Deviation 46.9(H) 37.0 - 46.[address] [facility] RDW coefficient of variation 13.5 11.5 - 14.1 % [facility] Mean Platelet Volume 10.5 7.6 - 12.[address] [facility] NRBC% auto 0.0 % [facility] NRBC Absolute 0.000 0.000 - 0.000 x10(3)/mc L [facility] Blood specimen (specimen) 06/22/2018 4:40 AM EDT 06/22/2018 4:53 AM EDT Narrative Resulting Agency Comment Spec In Lab Shiv Middleton MD HEMATOLOGY ORDERABLE S [facility] [place] [address] * (ABNORMAL) Basic Metabolic Panel (non-fasting) (06/22/2018 4:40 AM EDT) Glucose 106 65 - 199 mg/dL [facility] Comment:Diabetes: >=200 mg/d L plus symptoms Blood Urea Nitrogen 26(H) 8 - 18 mg/dL [facility] Creatinine 1.55(H) 0.70 - 1.20 mg/dL [facility] [...] questions. Chloride 106 98 - 107 mmol/L [facility] Carbon Dioxide 24 22 - 31 mmol/L [facility] Anion Gap 12 5 - 15 mmol/L [facility] Calcium 8.8 8.5 - 10.5 mg/dL [facility] Est Glomerular Filtration Rate 36(L) >=60 mL/min/1. 73 m?? [facility] Comment: The eGFR was calculated using the CKD-EPI equation. As with all creatinine based estimates of kidney function, eGFR values calculated with the CKD-EPI equation are not accurate in patients with acute kidney failure, extremes of body mass or the acutely ill. http://Refresh Body/[facility]nk[facility] eGFR 42(L) >=60 mL/min/1. 73 m?? [facility] Comment: The eGFR was calculated using the CKD-EPI equation. As with all creatinine based estimates of kidney function, eGFR values calculated with the CKD-EPI equation are not accurate in patients with acute kidney failure, extremes of body mass or the acutely ill. http://Refresh [email or web address] Blood specimen (specimen) 06/22/2018 4:40 AM EDT 06/22/2018 4:53 AM EDT Narrative Resulting Agency Comment Spec In Lab César Zarco MD CHEMISTRY ORDERA BLES [facility] [place] [address] * POCT Glucose (06/22/2018 12:03 AM EDT) Glucose, POC 116 65 - 199 mg/dL [facility] Comment: Supplemental ranges: <140 mg/dL before meals <180 mg/dL all other times of the day Blood specimen (specimen) 06/22/2018 12:03 AM EDT 06/22/2018 12:03 AM EDT César Zarco MD POINT OF CARE TE ST ORDERABLES [facility] [place] [address] * XR Chest PA & Lateral (Generic) [...] Glucose, POC 150 65 - 199 mg/dL [facility] Comment: Supplemental ranges: <140 mg/dL before meals <180 mg/dL all other times of the day Blood specimen (specimen) 06/21/2018 4:48 PM EDT 06/21/2018 4:48 PM EDT César Zarco MD POINT OF CARE TE ST ORDERABLES [facility] [place] [address] * (ABNORMAL) POCT Glucose (06/21/2018 2:10 PM EDT) Glucose, POC 205(H) 65 - 199 mg/dL [facility] Comment: Supplemental ranges: <140 mg/dL before meals <180 mg/dL all other times of the day Blood specimen (specimen) 06/21/2018 2:10 PM EDT 06/21/2018 2:10 PM EDT César Zarco MD POINT OF CARE TE ST ORDERABLES Performing Organization Address City/[facility]/ZIP Co de Phone Number [facility] [place] [address] * (ABNORMAL) POCT Glucose (06/21/2018 1:37 PM EDT) Glucose, POC 233(H) 65 - 199 mg/dL [facility] Comment: Supplemental ranges: <140 mg/dL before meals <180 mg/dL all other times of the day Blood specimen (specimen) 06/21/2018 1:37 PM EDT 06/21/2018 1:37 PM EDT César Zarco MD POINT OF CARE TE ST ORDERABLES [facility] [place] [address] * Specimen to Pathology (06/21/2018 1:18 PM EDT) AP Specimen 06/21/2018 1:18 PM EDT 06/21/2018 1:[address] [facility] - 06/21/2018 1:18 PM EDT Specimen requisition ordered. ??Separate Pathology report to follow César Zarco MD PATHOLOGY/CYTOLO GY ORDERABLES Performing Organization Address [facility] Co de Phone Number [facility] [place] [address] * Specimen to Pathology (06/21/2018 12:43 PM EDT) AP Specimen 06/21/2018 12:4 3 PM EDT 06/21/2018 12:[address] [facility] - 06/21/2018 12:43 PM EDT Specimen requisition ordered. ??Separate Pathology report to follow César Zarco MD PATHOLOGY/CYTOLO GY ORDERABLES Performing Organization Address [facility] Co de Phone Number [facility] [place] [address] * Surgical Pathology Report (06/21/2018 12:42 PM EDT) Final Diagnosis [id number] ? Location: [facility]; [facility]; A The signing pathologist has (i) examined [...] Bobo Santana Verified: ??06/27/2018 ?Pathologist Performed at: ??-[facility] Dept. of Pathology, [facility], [place] DISCUSSION AFB and GMS stains (Block A1) [...] Chung-white. ??Consistency: Firm and gritty. ??Location: Subpleural, 2.8 [...] 4 with adjacent staple line ? A6-A7: ??Clay Miller parenchyma with atelectatic-appea ring focus B - [...] 2 and closest stapled margin ? B3: ??Clay Miller parenchyma between lesions 2 and 3 ? B4: ??Lesion 3 and adjacent stapled margin ??shb ?Frozen Section FROZEN SECTION DIAGNOSIS A - Right lower lobe wedge for frozen section - calcified nodules, favor old hyalinized granulomas . FROZEN SECTION DIAGNOSIS 06/21/18 13:13 Electronically signed by: ??Jesusita Crowley DO Verified: ??06/21/2018 ?Pathologist Performed at: ??-[facility] Dept. of Pathology, [place], [place] This intraoperative consultation should be interpreted as a preliminary diagnosis pending review of the entire specimen and special studies, if any. 06/27/2018 1:[address] [facility] LUNG STRUCTURE / Unknown 06/21/2018 12:42 PM EDT 06/21/2018 12:42 PM EDT LUNG STRUCTURE / Unknown 06/21/2018 12:42 PM EDT 06/21/2018 12:42 PM EDT César Zarco MD PATHOLOGY/CYTOLO GY ORDERABLES Performing Organization Address [facility]/ZIP Co de Phone Number [facility] [place] [address] * POCT Glucose (06/21/2018 12:22 PM EDT) Glucose, POC 193 65 - 199 mg/dL [facility] Comment: Supplemental ranges: <140 mg/dL before meals <180 mg/dL all other times of the day Blood specimen (specimen) 06/21/2018 12:22 PM EDT 06/21/2018 12:22 PM EDT César Zarco MD POINT OF CARE TE ST ORDERABLES Performing Organization Address City/[facility] Co de Phone Number [facility] [place] [address] * POCT Glucose (06/21/2018 11:20 AM EDT) Glucose, POC 157 65 - 199 mg/dL [facility] Comment: Supplemental ranges: <140 mg/dL before meals <180 mg/dL all other times of the day Blood specimen (specimen) 06/21/2018 11:20 AM EDT 06/21/2018 11:20 AM EDT César Zarco MD POINT OF CARE TE ST ORDERABLES Performing Organization Address [facility] Co de Phone Number [facility] [place] [address] * EKG 12 Lead (06/21/2018 11:05 AM EDT) Ventricular rate 58 BPM MUSE SYSTEM Atrial Rate 58 BPM MUSE SYSTEM P-R Interval 184 ms MUSE SYSTEM QRS Duration 88 ms MUSE SYSTEM Q-T Interval 432 ms MUSE SYSTEM QTC Calculated (Bezet) 424 ms MUSE SYSTEM Calculated P [place] 61 degrees MUSE SYSTEM Calculated R [place] 7 degrees MUSE SYSTEM Calculated T [place] 59 degrees MUSE SYSTEM INTERPRETATION Sinus bradycardia Otherwise normal ECG When compared with ECG of 14-NOV-2007 12:49, No significant change was found Confirmed by MD Remigio, Moose Pagan ([id number]) on 06/23/2018 12:25:19 PM MUSE SYSTEM 06/21/2018 11:0 5 AM EDT 06/23/2018 12:25 PM EDT Regino Mayer MD ECG ORDERABLES Performing Organization Address [facility] Co de Phone Number MUSE SYSTEM documented [...] pulmonary nodule Lung nodule Solitary pulmonary nodule Right lower lobe pulmonary nodule documented in this encounter Admitting [...] Given 06/22/2018 8:14 AM EDT 81 mg BUpivacaine (PF) (MARCAINE) 0.5 % (5 mg/mL) injection ONCE PRN, Starting on [place] 06/21/18 at 1226, Until [place] 06/24/18 at 1403, Intra-Operative (Intra-Procedure), Routine Given 06/21/2018 12:26 PM EDT 11 mLs 19- Surgical Site BUpivacaine liposome (PF) (EXPAREL) 1.3 % (13.3 mg/mL) injection for infiltration ONCE PRN, Starting on [place] 06/21/18 at 1332, Until [place] 06/24/18 at 1403, Intra-Operative (Intra-Procedure) Given 06/21/2018 1:32 PM EDT 20 mLs 19- Surgical Site carvedilol (COREG) tablet 1.56 mg 1.56 mg, [...] Given 06/23/2018 4:49 PM EDT 100 mg glucagon (human recombinant) injection SolR [...] EVERY 8 HOURS SCHEDULED, First dose on Mon06/21/18 at 2200, Until Discontinued, Routine Given 06/24/2018 7:12 AM EDT 5,000 Unit s Given 06/23/2018 9:47 PM EDT 5,000 Units Given 06/23/2018 1:44 PM EDT 5,000 Units A bdominal Tissue insulin lispro (HumaLOG) VIAL injection 2-8 Units 2-8 Units, Subcutaneous, EVERY 4 HOURS SCHEDULED, First dose on Mon06/21/18 at 1600, Until Discontinued, CORRECTION BOLUS Moderate [...] Given 06/23/2018 8:00 PM EDT 5 Units levothyroxine (SYNTHROID) tablet 125 mcg 125 mcg, Oral, EVERY MORNING, First dose on Mon06/22/18 at 0600, Until Discontinued, Routine Given 06/24/2018 7:12 AM EDT 125 mcg Given 06/23/2018 5:47 AM EDT 125 mcg Given 06/22/2018 5:27 AM EDT 125 mcg oxyCODONE (ROXICODONE) immediate release tablet 5 mg 5 mg, Oral, EVERY 4 HOURS PRN, Starting on Mon06/21/18 at 1456, Until 06/24/18 at 1403, Pain, [...] mg, Oral, EVERY EVENING, First dose on Mon06/21/18 at 2100, Until Discontinued Given 06/23/2018 4:49 [...] Fabiana Kent RN)1811 (Given - Provider: Joanna Medeiros, TAMEKA)2330 (Given - Provider: Huan Canales RN) 0547 [...] [place] 06/21/18 at 2100, Until Discontinued, Routine 0300 (Not [...] Kent RN)1631 (Given - Provider: Joanna Medeiros RN)2040 (Given - Provider: Huan Canales RN) 0906 (Given - Provider: Nam Eng RN)1649 (Given [...] EVERY 4 HOURS SCHEDULED, First dose on Mon06/21/18 at 1600, Until Discontinued, CORRECTION BOLUS Moderate [...] FS 183Pt used own pump to admin insulin.)1999 (Given - Provider: Huan Canales RN - [...] Greene RN) 0547 (Given - Provider: Huan Canales, TAMEKA) 0712 (Given - Provider: Huna Canales RN) pantoprazole (PROTONIX) tablet 40 mg [...] RN)2040 (Given - Provider: Huan Canales RN) 1154 (Given - Provider: Nam Eng RN)2148 [...] Unit), Routine 0814 (Given - Provider: Fabiana Kent RN)1538 (Given - Provider: Joanna Medeiros RN)2153 (Given - Provider: Huan Canales RN) sodium [...] Routine documented in this encounter Care Teams Senior Water/Wastewater Engineer Relationship Specialty Start Date End Date Shirley Yu MD [address] [place] [address] PCP - General 11/19/14 documented as of this encounter
--- OUTSIDE RECORDS SUMMARY | 2023-12-13 18:29 | XMS_ITS | Encounter Summary ---
[place] [address] Care Team Providers Care Visual Effects Artist Name Role Phone Shirley Yu MD Primary Care Provider [phone] Encounter Details Date Type Department Care Team (Late st Contact Info) Description 12/06/2017 Telephone [place] [address] Aurea Mccarthy Social History Tobacco Use Types Packs/Day Years Used Date Smoking Tobacco: Former Cigarettes Q uit: 08/14/2014 Smokeless Tobacco: Never Alcohol Use Standard Drinks/Week Comments No 0 (1 standard drink = 0.6 oz pur e alcohol) Sex and Gender Information Value Date Recorded Sex Assigned at Not on file Gender Identity Not on file Sexual Orientation Not on file documented as of this encounter Miscellaneous Notes * Telephone Encounter - Aurea Mccarthy - 12/06/2017 10:31 AM EDT Called patient to schedule referral/recall (we have both). LM/VM for patient to call back and schedule. B CAR DUP, ABIs & RLE BPG - asymptomatic carotid stenosis, claudication & s/p right fem-popbpg, 1 yr f/up documented in this encounter Plan of Treatment Upcoming Encounters Date Type Department Care Team (Late st Contact Info) Description 12/19/2023 1:00 PM EDT Tech [place] [phone] Marguerite Macias 12/19/2023 3:00 PM EDT Office [place] [address] Gardenia Golden, [facility] [place] [address] 01/29/2024 1:[address] [place] [place] [address] César Escobar MD [facility] [address] THORACIC SURGERY [place], [place] [id number] 01/29/2024 2:30 PM EDT Office [place] [address] César Escobar MD [facility] [place] [address] documented as of this encounter Visit Diagnoses Not on filedocumented in this encounter Care Teams Visual Effects Artist Relationship Specialty Start Date End Date Shirley Yu MD [address] [place] [address] PCP - General 11/19/14 documented as of this encounter
--- OUTSIDE RECORDS SUMMARY | 2023-12-13 18:29 | XMS_ITS | Encounter Summary ---
[place] [address] Care Team Providers Care County Records Management Officer Name Role Phone Shirley Yu MD Primary Care Provider [phone] Encounter Details Date Type Department Care Team (Late st Contact Info) Description 03/14/2018 Orders Only [place] [phone] Tavia Adam RN PVD (peripheral vascular disease) with claudication Social [...] PM EDT Tech Visit [place] [phone] Marguerite Macias 12/19/2023 3:00 PM EDT Office Visit [place] [address] Gardenia Golden, [facility] [place] [address] 01/29/2024 1:[address] [place] [phone] César Escobar MD [facility] [place] [address] 01/29/2024 2:30 PM EDT Office Visit [place] [phone] César Escobar MD [facility] [place] [address] documented as of this encounter Visit Diagnoses Diagnosis PVD (peripheral vascular disease) with claudication Peripheral vascular disease, unspecified documented in this encounter Care Teams County Records Management Officer Relationship Specialty Start Date End Date Shirley Yu MD [address] [place] [address] PCP - General 11/19/14 documented as of this encounter
--- OUTSIDE RECORDS SUMMARY | 2023-12-13 18:29 | XMS_ITS | Encounter Summary ---
[place] [address] Care Team Providers Care Alliances Consultant Name Role Phone Shirley Yu MD Primary Care Provider [phone] Encounter Details Date Type Department Care Team (Late st Contact Info) Description 04/27/2018 [place] [phone] Rambo Beaulieu MD [facility] [place] [address] PAD (peripheral artery disease) Social History Tobacco Use Types Packs/Day Years Used Date Smoking Tobacco: Former Cigarettes Q uit: 08/14/2014 Smokeless Tobacco: Never Comments:Smoked 1 ppd [...] PM EDT Tech [place] [address] Marguerite Macias 12/19/2023 3:00 PM EDT Office [place] [address] Gardenia Golden APRN [facility] [place] [address] 01/29/2024 1:[address] [place] [address] César Escobar MD [facility] [place] [address] 01/29/2024 2:30 PM EDT Office [place] [address] César Escobar MD [facility] [place] [address] documented as of this encounter Results * SHEFALI, legs, multiple levels (05/29/2018 10:04 AM EST) VB Text Report Department: Vascular Surgery Lab Patient: [id number] (JENNIFER SNYDER) CPT: 73103 ICD10: I73.9 Referring Physician: JAXON FONTAINE MD ?? Phone: Indications: ??s/p angioplasty of RIGHT fem-pop bypass, ? change Diabetes mellitus: no ICD10 Diagnosis Code: I73.9 Findings: Right ?Pressure (mm Hg) ?? SHEFALI ??Waveform ? Brachial Artery ?161 ? Dorsalis Pedis (Ankle) Artery ?147 ? 0.89 ??Biphasic-Rev ?? Posterior Tibial (Ankle) Artery ??157 ? 0.95 ??Biphasic-Rev ?? Left ? Pressure (mm Hg) ?? SHEFALI ??Waveform ?? Brachial Artery ?166 ? Dorsalis Pedis (Ankle) Artery ?103 ? 0.62 ??Biphasic ?? Posterior Tibial (Ankle) Artery ??103 ? 0.62 ??Biphasic ?? Interpretation: RIGHT: Mild lower extremity arterial occlusive disease. Significant improvement compared to preoperative exam. LEFT: Moderate lower extremity arterial occlusive disease. Improved compared to previous exam. Previous ABIs with [...] 0.80(+.08) 0.53(+.04) ---- ??0.49(-.13) 0.56(-.24) 0.35(-.18) ---- Current ? 0.89(+.40) 0.95(+.39) ---- ? ---- Date ?LEFT DP ?LEFT PT [...] 0.57(+.05) 0.34(-.03) ---- ??0.46(-.11) 0.46(-.11) 0.31(-.03) ---- Current ? 0.62(+.16) 0.62(+.16) ---- ? ---- Electronically Signed by: JAXON FONTAINE MD on 2018-05-29 05:10:37 PM [facility] VB Text Report End of Report [facility] 05/29/2018 10:0 4 AM EST Jaxon Fontaine MD VASCULAR ORDERABLES [facility] documented in this encounter Visit Diagnoses Diagnosis PAD (peripheral artery disease) Peripheral vascular disease, unspecified documented in this encounter Care Teams Alliances Consultant Relationship Specialty Start Date End Date Shirley Yu MD [address] [place] [address] PCP - General 11/19/14 documented as of this encounter
--- OUTSIDE RECORDS SUMMARY | 2023-12-13 18:29 | XMS_ITS | Encounter Summary ---
Author Organization [facility] [place] [address] Care Team Providers Care Veterinary Medicine Scientist Name Role Phone Shirley Yu MD Primary Care Provider [phone] Reason for Visit * Reason Comments Follow-up Encounter Details Date Type Department Care Team (Late st Contact Info) Description 06/04/2018 11:30 AM EST Office [place] [address] César Escobar MD [facility] [place] [address] Right lower lobe pulmonary nodule Social History [...] Sign Reading Time Taken Comments Blood Pressure 146/80 06/04/2018 11:56 AM EST Pulse 83 06/04/2018 11:56 AM EST Temperature 36.1 ??C (97 ??F) 06/04/2018 11:56 AM EST Respiratory Rate 18 06/04/2018 11:56 AM EST Oxygen Saturation 99% 06/04/2018 11:56 AM EST Inhaled Oxygen Concentration - - Weight 96.4 kg (212 lb 9.6 oz) 06/04/2018 11:56 AM EST Height 168.4 cm (5' 6.3) 06/04/2018 11:56 AM ES T Body Mass Index 34.01 06/04/2018 11:56 AM EST documented in this encounter Patient Instructions * Patient Instructions* Kayla Poe RN - 06/04/2018 11:30 AM EST Thank you for visiting Dr. Escobar in clinic 06/04/[address] Escobar, you were scheduled for a Lung surgery - wedge resection with possible Lobectomy on June 21 2018. A wedge is the removal of a small part of the lobe of the lung. A lobectomy is the removal of an entire lobe of the lung. The rest of the lung inflates to fill up that space. Before your Surgery: ?? Preadmission Testing today in clinic 4V ?? Exercise: Daily aerobic exercise for at least 30 minutes will help improve your endurance and improve the breathing capacity of your lungs. This means that you are breathing hard, your heart is beating fast and that you are sweating. Examples of this include walking, biking, swimming, and using a treadmill or stationary bike. You will be expected to exercise after surgery as well. ?? Incentive Spirometer: Use your incentive spirometer as you were shown in clinic: 6 times daily/10 breaths each time. Takea slow, deep breath in through your mouth. While the piston rises, the indicator on the right should move upwards. It should stay between the 2 arrows for 2 to 4 seconds with each breath. If the indicator does not stay between the arrows, you are breathing either too fast or too slowly. The incentive spirometer will help you expand your lungs and encourage you to breathe deeply and fully. Please bring your incentive spirometer to the hospital with you on the day of surgery. You willuse the incentive spirometer as part of your recovery process and to prevent complications such as pneumonia. ?? If you take the medication Lovenox, you will need to take your last dose by 6:30 am the day before your surgery. ?? Exercise each day for 30 minutes or longer. Daily aerobic exercise for at least 30 minutes will help improve your endurance and improve the breathing capacity of your lungs. This means that you are breathing hard, your heart is beating fast and that you are sweating. Examples of this include walking, biking, swimming, and using a treadmill or stationary bike. Stop pradaxa 3 days prior to surgery starting on Monday June 18, 2018. Please call Thoracic surgery at with any questions or concerns. documented in this encounter Progress Notes * César Escobar MD - 06/04/2018 11:30 AM EST Thoracic surgery follow-up visit Chief complaint: Pulmonary nodules History of present illness: Ms. Snyder is a 57-year-old woman with a history of tobacco use and COPD as well as a melanoma of the right arm. She was initially referred to me in April for evaluation of bilateral lower lobe lung nodules. At that time an angiogram was pending to evaluate her lower extremity arterial bypass grafts, and this has now been completed without difficulty or need for further intervention. She comes in today to discuss further workup and management of her lung nodules. She has recovered from the angiogram and has no new complaints. Current Outpatient Medications on File Prior to Visit Medication Sig Dispense Refill ??? levothyroxine (SYNTHROID) [...] Diabetic Supplies, Miscellan. Misc Form faxed to [employer] for pump supplies. 100 each 12 ??? [...] medications on file prior to visit. BP 146/80 (Patient Position: Sitting) Pulse 83 Temp 36.1 ??C (97 ??F) (Temporal) Resp 18 Ht168.4 cm (5' 6.3) Wt 96.4 kg (212 lb 9.6 oz) SpO2 99% BMI 34.01 kg/m?? Physical exam: She appears well today. She is alert, oriented and in no distress. Her lungs are clear, her heart is regular and her abdomen is nontender nondistended. Imaging: No new imaging was obtained at today's visit. Assessment: 57-year-old woman with COPD and peripheral vascular disease with a number of small lungnodules. The most concerning of these is a 9 mm right lower lobe noncalcified nodule which has grown in size somewhat. The nodule should be amenable to thoracoscopic wedge resection. We discussed possible wedge resection and the patient wishes to proceed; I advised her that a lobectomy may be necess tapan if a primary lung cancer is diagnosed. Plan: Thoracoscopic wedge resection of right lower lobe lung nodule with possible lobectomy patientwill need to hold her Pradaxa for at least 3 days prior to the procedure,. And vascular surgery hasauthorized this. CÉSAR ESCOBAR MD documented in this encounter Plan of Treatment Upcoming Encounters Date Type Department Care Team (Late st Contact Info) Description 12/19/2023 1:00 PM EDT Tech Visit [place] [address] Marguerite Macias 12/19/2023 3:00 PM EDT Office [place] [address] Gardenia Payan APRN [facility] [address] VASCULAR SURGERY [place], [place] [id number] 01/29/2024 1:[address] [place] [address] César Escobar MD [facility] [place] [address] 01/29/2024 2:30 PM EDT Office [place] [address] César Escobar MD [facility] [address] documented as of this encounter Results * (ABNORMAL) Comprehensive metabolic panel (non-fasting) (06/04/2018 1:47 PM EST) [facility] Glucose 159 65 - 199 mg/dL [facility] Comment:Diabetes: >=200 mg/d L plus symptoms Blood Urea Nitrogen 22(H) 8 - 18 mg/dL [facility] Creatinine 1.88(H) 0.70 - 1.20 mg/dL [facility] Sodium 143 135 - 145 mmol/L [facility] [...] mmol/L [facility] Calcium 9.5 8.5 - 10.5 mg/dL [facility] Protein, Total 7.2 6.1 - 8.0 gm/dL [facility] Albumin 4.1 3.2 - 5.2 gm/dL [facility] Aspartate Aminotransferase 15 0 - 30 unit/L [facility] Alanine Aminotransferase 8 0 - 30 unit/L [facility] Alkaline Phosphatase 101 40 - 104 unit/L [facility] Bilirubin, Total 0.4 0.2 - 1.3 mg/dL [facility] Est Glomerular Filtration Rate 29(L) >=60 mL/min/1. 73 m?? [facility] Comment: The eGFR was calculated using the CKD-EPI equation. As with all creatinine based estimates of kidney function, eGFR values calculated with the CKD-EPI equation are not accurate in patients with acute kidney failure, extremes of body mass or the acutely ill. [email or web address] eGFR 33(L) >=60 mL/min/1. 73 m?? [facility] Comment: The eGFR was calculated using the CKD-EPI equation. As with all creatinine based estimates of kidney function, eGFR values calculated with the CKD-EPI equation are not accurate in patients with acute kidney failure, extremes of body mass or the acutely ill. [email or web address] Blood specimen (specimen) 06/04/2018 1:47 PM EST 06/04/2018 1:54 PM EST Narrative Resulting Agency Comment Spec In Lab César Escobar MD CHEMISTRY ORDERA [facility] [place] [place] [address] documented in this encounter Visit Diagnoses Diagnosis Right lower lobe pulmonary nodule documented in this encounter Care Teams Veterinary Medicine Scientist Relationship Specialty Start Date End Date Shirley Yu MD [address] [place] [address] PCP - General 11/19/14 documented as of this encounter
--- OUTSIDE RECORDS SUMMARY | 2023-12-13 18:29 | XMS_ITS | Encounter Summary ---
Author Organization [facility] Address [facility] [place] [address] Care Team Providers Care Embryology Teacher Name Role Phone Shirley Yu MD Primary Care Provider [phone] Reason for Visit * Reason Comments Schedule Office Case * Consultation (Routine) - Closed Specialty Diagnoses / Procedures Referred By Dominik mcleod Referred To Contact Thoracic Surgery Diagnoses PVD (peripheral vascular disease) with claudication Kaity Fontaine MD [facility] [place] [address] César Zarco MD [facility] [place] [address] Referral ID Status Reason Start Date Expiration Date V isits Requested Visits Authorized [id number] Closed Consult, Test & Treat 03/20/2018 03/20/2019 1 1 Encounter Details Date Type Department Care Team (Late st Contact Info) Description 04/16/2018 9:00 AM EST Office Visit [place] [id number] César Zarco MD [facility] [place] [address] Pulmonary nodules Social History Tobacco Use Types Packs/Day [...] Sign Reading Time Taken Comments Blood Pressure 161/48 04/16/2018 9:03 AM EST Pulse 82 04/16/2018 9:03 AM EST Temperature 36.3 ??C (97.3 ??F) 04/16/2018 9:03 AM ES T Respiratory Rate 18 04/16/2018 9:03 AM EST Oxygen Saturation 100% 04/16/2018 9:03 AM EST Inhaled Oxygen Concentration - - Weight 96.3 kg (212 lb 3.2 oz) 04/16/2018 9:03 A M EST Height 168.9 cm (5' 6.5) 04/16/2018 9:03 AM EST Body Mass Index 33.74 04/16/2018 9:03 AM EST documented in this encounter Patient Instructions * Patient Instructions* Mallory Ashford RN - 04/16/2018 9:00 AM EST Thank you for visiting Dr. Zarco in clinic 04/16/18. As discussed in clinic today,you will be scheduled for a CT and Pulmonary Function testing. We will reach out and request your records( scans and Pulmonary testing) ?? Exercise each day for 30 minutes [...] in this encounter Progress Notes * César Zarco MD - 04/16/2018 9:00 AM EST Thoracic surgery new patient evaluation I saw and examined Ms. Snyder with GENTRY Stone, and agree with her findings, assessment and plan. In brief: Chief complaint: Pulmonary nodules History of present illness: Ms. Snyder is a 57-year-old woman with a history of COPD, melanoma of the right arm and peripheral vascular disease. She recalls being hospitalized about 3 years ago in [place] for a COPD exacerbation. She was told that she had at least one pulmonary nodule at that time. She has subsequently been evaluated for her peripheral arterial disease and an angiogram is scheduled for April 27 in anticipation of possible revision of a peripheral arterial graft. During thecourse of this workup she had an extremity CT angiogram which demonstrated enlargement in the left lower lobe pulmonary nodule relative to 2012, as well as a possibly new right lower lobe nodule. Thenodules are asymptomatic. Patient is not limited by dyspnea, but her activity is limited by her claudication. She has no particular cough or other complaints related to her breathing. Past Medical History: Diagnosis Date ??? Allergy Sulfa, Penicillin ??? Cardiac disease PAD ??? Cataract ??? Depression 02/18/2015 ??? Diabetes mellitus Type 1 ??? DM eyes ??? Hyperlipidemia ??? Hypertension ??? Skin disease Hyperkeratosis palmaris et plantaris ??? Thyroid disease Hyperthyroidism Past medical history: Most notable for COPD, peripheral arterial occlusive disease, carotid stenosis, hypertension, obesity and melanoma. She had a melanoma excised from the arm and also an axillary biju dissection at that time. Past Surgical History: Procedure Laterality Date ??? CATARACT EXTRACTION, EXTRACAPSULAR, W/ LENS INSERTION 06/2013 OU - Dr Szymanski ? ? PRO EDG FLEXIBLE TRANSORAL ABLATE TUMOR POLYP/LESION W/DILATION & WIRE N/A 06/22/2016 EGD, TRANSORAL; WITH ABLATION OF TUMOR(S), POLYP(S), OR OTHER LESION(S) (WRVU 4.26) performed by Christos Donald MD at [facility] ??? PRO UPPER GI ENDOSCOPY, BIOPSY N/A 10/24/2016 UPPER GASTROINTESTINAL ENDOSCOPY,WITH BIOPSY SINGLE OR MULTIPLE (WRVU 2.49) performed by Agapito Parmar MD at [facility] ??? PRO UPPER GI ENDOSCOPY, DIAGNOSTIC N/A 06/22/2016 EGD, UPPER GI ENDOSCOPY performed by Christos Donald MD at [facility] ??? RETINAL LASER SURGERY [...] SFA stents ??? VASCULAR SURGERY 1009 Right AUTOMOBILE MECHANIC ASSISTANT-AK pop vein graft ??? YAG CAPSULOTOMY Right 02/27/15 YAG CAP OD - Nessa Past surgical history: Most notable for her right AUTOMOBILE MECHANIC ASSISTANT to above-knee popliteal vein graft. No history of surgery on the chest Current Outpatient Medications on File Prior to Visit Medication Sig Dispense Refill ??? levothyroxine (SYNTHROID) 125 mcg Tablet TAKE ONE TABLET BY MOUTH EVERY DAY 90 tablet 3 ??? simvastatin (ZOCOR) 40 mg Tablet ??? [employer] ULTRA TEST Strip 1 strip by Other [...] 180 capsule 3 ??? Diabetic Supplies, Miscellan. [facility] Form faxed to [employer] for pump supplies. 100 each 12 ??? [...] facility-administered medications on file prior to visit. Medications: Most notable for pradaxa and aspirin for her peripheral arterial occlusive disease BP 161/48 (Patient Position: Sitting) Pulse 82 Temp 36.3 ??C (97.3 ??F) (Temporal) Resp 18 Ht 168.9 cm (5' 6.5) Wt 96.3 kg (212 lb 3.2 oz) SpO2 100% BMI 33.74 kg/m?? Physical exam: She appears well. She is alert, oriented and in no distress. Her lungs are clear. Her heart is regular. Her abdomen is nontender nondistended. She has no palpable adenopathy and no neurologic deficits. Imaging: I reviewed her recent CT angiogram and compared it with her abdominal CT from 2012. There is a small peripheral left lower lobe nodule which is increased relative to 2012. The images from 2012 did not go high enough to visualize the right lower lobe nodule, which measures just under 1 cm. Assessment: 57-year-old woman with history of tobacco use, COPD and peripheral arterial disease with a slowly enlarging left lower lobe nodule and a small right lower lobe nodule not previously imaged. We will obtain her chest CT from [facility] for comparison purposes. We will also obtain a formal CT of the chest with intravenous contrast to determine whether any other nodules are present. In the event that the right lower lobe nodule is new, a short interval 3-month CT is warranted. In the event that stability of both nodules is seen on the prior CT, a longer interval may be appropriate. We will obtain pulmonary function testing to determine her fitness for surgery. She may proceed with treatment for her peripheral arterial occlusive disease. Plan: Chest CT, comparison to chest CT from [facility] CÉSAR ZARCO MD documented in this encounter H&P Notes * Mallory Artis PA - 04/16/2018 9:00 AM EST Thoracic Surgery Attending Outpatient Consultation Note César Zarco MD [place] [address] FAX: Date of Consultation: 04/16/2018 This consultation has been requested by PCP: Shirley Yu MD Referring Physician: Kaity Fontaine Purpose for Consultation: evaluation of pulmonary nodules HPI: Jennifer Snyder is a 57 y.o. female with PMHx PAD, COPD, HTN, HL, DM, MANISH with CPAP, distant h/o R arm melanoma with negative axillary LND presenting today for evaluation of slightly enlarging LLL and possibly new RLL nodules. She was hospitalized about 3 years ago at [place] for COPD exacerbation when patient first found out about LLL nodule. She does not recall any evaluation being doneat the time. She has not had any hospitalizations or lung infections since this time. She denies any difficulties breathing, does not have a baseline cough, and does not use any inhalers for COPD. She is able to climb flights of stairs without becoming SOB. States that her claudication pain in LEs stops her from activities before her breathing inhibits her. She does complain of some longstanding unchanged fatigue that causes her to feel tired most days, she attributes this to her MANISH. She also denies f/c/WL/night sweats. The patient denies dyspnea, dyspnea on exertion, cough, hemoptysis, wheeze, chest pain, fever, chills, nausea, vomiting, dysphagia, weight loss. Past Medical History: Patient Active Problem List Diagnosis Date Noted ??? Proliferative diabetic retinopathy of left eye 05/22/2015 ??? Obesity 02/18/2015 ??? Hypertension 02/18/2015 ??? Hyperlipidemia 02/18/2015 ??? Sleep apnea 02/18/2015 ??? Hypothyroidism 02/18/2015 ??? Depression 02/18/2015 ??? PDR (proliferative diabetic retinopathy) 01/22/2012 ??? Intermittent claudication 05/25/2011 ??? PAD (peripheral artery disease) 05/25/2011 ??? 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 Carotid stenosis 05/25/2011 ??? Hyperkeratosis palmaris et plantaris 12/17/2010 Past Medical History: Diagnosis Date ??? Allergy Sulfa, Penicillin ??? Cardiac disease PAD ??? Cataract ??? Depression 02/18/2015 ??? Diabetes mellitus Type 1 ??? DM eyes ??? Hyperlipidemia ??? Hypertension ??? Skin disease Hyperkeratosis palmaris et plantaris ??? Thyroid disease Hyperthyroidism Past Surgical History: Past Surgical History: Procedure Laterality Date ??? CATARACT EXTRACTION, EXTRACAPSULAR, W/ LENS INSERTION 06/2013 OU - Dr Szymanski ? ? PRO EDG FLEXIBLE TRANSORAL ABLATE TUMOR POLYP/LESION W/DILATION & WIRE N/A 06/22/2016 EGD, TRANSORAL; WITH ABLATION OF TUMOR(S), POLYP(S), OR OTHER LESION(S) (WRVU 4.26) performed by Christos Donald MD at [facility] ??? PRO UPPER GI ENDOSCOPY, BIOPSY N/A 10/24/2016 UPPER GASTROINTESTINAL ENDOSCOPY,WITH BIOPSY SINGLE OR MULTIPLE (WRVU 2.49) performed by Agapito Parmar MD at [facility] ??? PRO UPPER GI ENDOSCOPY, DIAGNOSTIC N/A 06/22/2016 EGD, UPPER GI ENDOSCOPY performed by Christos Donald MD at [facility] ??? RETINAL LASER SURGERY [...] SFA stents ??? VASCULAR SURGERY 1009 Right AUTOMOBILE MECHANIC ASSISTANT-AK pop vein graft ??? YAG CAPSULOTOMY Right 02/27/15 YAG CAP OD - Nessa Medications: Outpatient Medications Marked as Taking for the 04/16/18 encounter (Office Visit) with César Zarco MD Medication Sig Dispense Refill ??? levothyroxine (SYNTHROID) [...] Diabetic Supplies, Miscellan. Misc Form faxed to [employer] for pump supplies. 100 each 12 ??? [...] Renal failure, bleeding ??? Pcn [Penicillins] Unknown Family History: Family History Problem Relation Age [...] Neg Hx ??? Amblyopia Neg Hx Social History: Social History Socioeconomic History ??? Marital status: Spouse name: Not on file ??? Number of children: Not on file ??? Years of education: Not on file ??? Highest education level: Not on file Social Needs ??? Financial resource strain: Not on file ??? Food insecurity - worry: Not on file ??? Food insecurity - inability: Not on file ??? Transportation needs - medical: Not on file ??? Transportation needs - non-medical: Not on file Occupational History ??? Not on file Tobacco Use ??? Smoking status: Former Smoker Types: Cigarettes Last attempt to quit: 08/14/2014 Years since quittin.6 ??? Smokeless tobacco: Never Used ??? Tobacco comment: Smoked 1 ppd for 30 years Substance and Sexual Activity ??? Alcohol use: No ??? Drug use: No ??? Sexual activity: Not on file Other Topics Concern ??? Not on file Social History Narrative ??? Not on file REVIEW OF SYSTEMS: General: Denies weight loss, chills, night sweats. Positive for fatigue Neuro: Denies seizure, TIA, CVA. Cardiovascular: Denies arrythmias, CAD, CHF. Positive for HTN, HL, and family h/o cardiac disease Respiratory: Denies asthma, emphysema, cough, dyspnea, wheezing, stridor, hemoptysis, respiratory infection, TB or exposure to TB. Positive for COPD GI: denies ulcer disease, irritable bowel syndrome, denies past GI bleed, jaundice : denies urgency, frequency, dysuria. Hematologic: Denies history of DVT, PE, petechiae, bleeding diathesis. Endocrine: Positive for DM and thyroid disease Musculoskeletal: Denies fractures, arthritis Integument: Positive for h/o melanoma Physical Exam: BP 161/48 (Patient Position: Sitting) Pulse 82 Temp 36.3 ??C (97.3 ??F) (Temporal) Resp 18 Ht 168.9 cm (5' 6.5) Wt 96.3 kg (212 lb 3.2 oz) SpO2 100% BMI 33.74 kg/m?? General Appearance: Alert, cooperative, no distress, appears stated age HEENT: PERRL, MMM, non-icteric Neck: Supple, symmetrical, trachea midline, no adenopathy Lungs: Clear to auscultation bilaterally, respirations unlabored, no wheezes, crackles or ronchi. Heart: Regular rate and rhythm, S1 and S2 normal, 2/6 systolic murmur heard at LUSB, no rub, or gallop Abdomen: Soft, non-tender, bowel sounds normo-active in all four quadrants, no masses, no organomegaly Extremities: Extremities normal, no cyanosis, clubbing. No LE edema Neurologic: A+Ox3, cranial nerves II-XII grossly intact Musculoskeletal: 5/5 throughout with normal gait Diagnostics: I have independently visualized all relevant imaging studies, including: CT Angio Aorta LE runoff (03/19/18): Chronic calcified atherosclerotic disease. Right lower extremity: New nonobstructing focal dissection of the moderately circumferentially stenotic right common femoral artery. Patent right SFA to popliteal artery bypass graft. Left lower extremity: Stable moderately stenotic left common iliac artery origin. Stable peripherally calcified moderately stenotic left common femoral artery origin. Chronic occlusion left superficial femoral artery with geniculate recanalization of the above knee left popliteal artery. Bilaterally anterior tibial arteries to dorsalis pedis arteries are patent however there is mixing the runoff vasculature size though distinguishing run off posterior tibial and peroneal arteries from veins is not possible on this study. Interval enlargement of 9 mm left and 8mm right lower lobe pulmonary nodules. These are unexpected findings. Further evaluation with CT scan of the chest is suggested. Assessment: This is a 57 y.o. female with with PMHx PAD, COPD, HTN, HL, DM, MANISH with CPAP, distant h/o R arm melanoma with negative axillary LND presenting today for evaluation of slightly enlarging LLL and possibly new RLL nodules found on recent CT Angio Aorta LE runoff. Patient does not have anypulmonary symptoms and hasn't experienced any recent WL/f/c/sweats. She does have a significant smoking history, 30 pack years - quit in 2015. We will plan to further evaluate the pulmonary nodules with dedicated CT chest w contrast and PFTs. Patient has RLE angiogram planned on 04/27/18. Recommend moving forward with vascular diagnostics/interventions and will work the nodules up in the mean timeto determine if further intervention is needed vs surveillance. Plan of Management: 1. CT Chest w contrast 2. PFTs 3. Obtain CT Chest from [facility] where patient was hospitalized for COPD exacerbation about 3 years ago for comparison 4. Recommend moving forward with vascular diagnostics/interventions 5. Call with any questions or concerns GENTRY Nogueira 04/16/18 Thoracic Surgery [facility] documented in this encounter Plan of Treatment Upcoming Encounters Date Type Department Care Team (Late st Contact Info) Description 12/19/2023 1:00 PM EDT Tech [place] [address] Marguerite Macias 12/19/2023 3:00 PM EDT Office Visit [place] [address] Gardenia Golden, LADARIUS [facility] [place] [address] 01/29/2024 1:[address] [place] [phone] César Zarco MD [facility] [place] [address] 01/29/2024 2:30 PM EDT Office Visit [place] [phone] César Zarco MD [facility] [place] [address] documented as of this encounter Results * Pulmonary Function Testing (04/23/2018 5:25 PM EST) Narrative Calos Barnes MD - 04/23/2018 5:25 PM EST Calos Barnes MD ? 04/23/2018 ??5:25 PM Normal spirometry. ?? The isolated reduction in diffusing capacity is a non-specific finding consistent with a variety of cardiopulmonary disorders as well as anemia. Early ILD cannot be excluded Normal resting oxymetry on room air Calos Barnes MD Césra Zarco MD PFT ORDERABLES documented in this encounter Visit Diagnoses Diagnosis Pulmonary nodules Other nonspecific abnormal finding of lung field Pulmonary nodules Other nonspecific abnormal finding of lung field documented in this encounter Care Teams Embryology Teacher Relationship Specialty Start Date End Date Shirley Yu MD [address] [place] [address] PCP - General 11/19/14 documented as of this encounter
--- OUTSIDE RECORDS SUMMARY | 2023-12-13 18:29 | XMS_ITS | Encounter Summary ---
[place] [address] Care Team Providers Care Rivet Tester Name Role Phone Shirley Yu MD Primary Care Provider [phone] Encounter Details Date Type Department Care Team (Latest Contact Info) Description 03/19/2018 8:25 AM EST Laboratory Appointment Lab [address] [place] [address] Intermittent claudication Social History Tobacco Use Types Packs/Day [...] EDT Tech [place] [address] Marguerite Macias 12/19/2023 3:00 PM EDT Office [place] [phone] Gardenia Golden, W[employer]JECT MANAGER [facility] [place] [address] 01/29/2024 1:[address] [place] [place] [phone] César Escobar MD [facility] [place] [address] 01/29/2024 2:30 PM EDT Office [place] [phone] César Escobar MD [facility] DR THORACIC SURGERY [place], [place] [id number] documented as of this encounter Procedures Procedure Name Priority Date/Time Associated Diagnosis Comments CREATININE STAT 03/19/2018 8:31 AM EST Intermittent claudication documented in this encounter Results * (ABNORMAL) Creatinine (03/19/2018 8:31 AM EST) Creatinine 1.75(H) 0.70 - 1.20 mg/dL [facility] Est Glomerular Filtration Rate 31(L) >=60 mL/min/1.7 3 m?? [facility] Comment: The eGFR was calculated using the CKD-EPI equation. As with all creatinine based estimates of kidney function, eGFR values calculated with the CKD-EPI equation are not accurate in patients with acute kidney failure, extremes of body mass or the acutely ill. http://[employer] eGFR 36(L) >=60 mL/min/1.7 3 m?? [facility] Comment: The eGFR was calculated using the CKD-EPI equation. As with all creatinine based estimates of kidney function, eGFR values calculated with the CKD-EPI equation are not accurate in patients with acute kidney failure, extremes of body mass or the acutely ill. http://[employer] Blood specimen (specimen) 03/19/2018 8:31 AM EST 03/19/2018 8:46 AM EST Narrative Resulting Agency Comment Spec In Lab Kaity Fontaine MD CHEMISTRY ORDERABLES [facility] [place] [address] documented in this encounter Visit Diagnoses Diagnosis Intermittent claudication Peripheral vascular disease, unspecified documented in this encounter Care Teams Rivet Tester Relationship Specialty Start Date End Date Shirley Yu MD [address] [place] [address] PCP - General 11/19/14 documented as of this encounter
--- OUTSIDE RECORDS SUMMARY | 2023-12-13 18:29 | XMS_ITS | Encounter Summary ---
[place] [address] Care Team Providers Care Certified Orthotist Name Role Phone Shirley Yu MD Primary Care Provider [phone] Encounter Details Date Type Department Care Team (Late st Contact Info) Description 03/14/2018 Orders [place] [phone] Tavia Adam RN Intermittent claudication Social History Tobacco Use Types [...] PM EDT Tech [place] [phone] Marguerite Macias 12/19/2023 3:00 PM EDT Office Visit [place] [address] Gardenia Golden, RUSTIC TERRAZZO SETTER [facility] [place] [address] 01/29/2024 1:[address] [place] [phone] César Escobar MD [facility] [place] [address] 01/29/2024 2:30 PM EDT Office Visit [place] [phone] César Escobar MD [facility] [place] [address] documented as of this encounter Results * (ABNORMAL) Creatinine (03/19/2018 8:31 AM EST) Creatinine 1.75(H) 0.70 - 1.20 mg/dL [facility] Est Glomerular Filtration Rate 31(L) >=60 mL/min/1.7 3 m?? [facility] Comment: The eGFR was calculated using the CKD-EPI equation. As with all creatinine based estimates of kidney function, eGFR values calculated with the CKD-EPI equation are not accurate in patients with acute kidney failure, extremes of body mass or the acutely ill. [email or web address] eGFR 36(L) >=60 mL/min/1.7 3 m?? [facility] Comment: The eGFR was calculated using the CKD-EPI equation. As with all creatinine based estimates of kidney function, eGFR values calculated with the CKD-EPI equation are not accurate in patients with acute kidney failure, extremes of body mass or the acutely ill. [email or web address] Blood specimen (specimen) 03/19/2018 8:31 AM EST 03/19/2018 8:46 AM EST Narrative Resulting Agency Comment Spec In Lab Kaity Fontaine MD [place] [address] documented in this encounter Visit Diagnoses Diagnosis Intermittent claudication Peripheral vascular disease, unspecified documented in this encounter Care Teams Certified Orthotist Relationship Specialty Start Date End Date Shirley Yu MD [address] [place] [address] PCP - General 11/19/14 documented as of this encounter
--- OUTSIDE RECORDS SUMMARY | 2023-12-13 18:29 | XMS_ITS | Encounter Summary ---
[place] [address] Care Team Providers Care Kosher Sealer Name Role Phone Shirley Yu MD Primary Care Provider [phone] Reason for Visit * Consultation (Routine) - Specialty Diagnoses / Procedures Referred By Contac t Referred To Contact Vascular Surgery Diagnoses peripheral vascular nos Shirley Yu MD [address] [place] [address] [facility] Vascular Surg [address] [place] [address] Referral ID Status Reason Start Date Expiration Date V isits Requested Visits Authorized [id number] Consult, Test & Treat Connection [facility] 12/04/2017 12/04/2018 6 6 Encounter Details Date Type Department Care Team (Latest Contact Info) Description 01/05/2018 12:57 PM EDT - 01/05/2018 11:59 PM EDT Hospital [place] [address] Delbert Yost [place] PAD (peripheral artery disease); Stenosis of left carotid artery; Intermittent claudication Discharge Disposition: Home Social History Tobacco Use [...] TWICE A DAY 98 07/26/2016 [employer] Misc Form faxed to [employer] for pump supplies. 100 each 12 03/23/2015 losartan (COZAAR) 100 mg Tablet Take 50 mg by mouth daily. 08/11/2014 aspirin 81 mg EC tablet Take 81 mg by mouth daily. insulin lispro (HUMALOG) 100 unit/mL injection Inject 55-60 Units subcutaneously continuous. Via insulin pump insulin lispro (HumaLOG) Solution 24/7 01/07/2016 3 simvastatin (ZOCOR) 40 mg Tablet Take 40 mg by mouth nightly. 12/13/2017 12/20/2021 atorvastatin (LIPITOR) 40 mg Tablet Take 1 tablet by mouth daily. 90 tablet 3 01/11/2017 01/11/2018 levothyroxine (SYNTHROID) 125 mcg Tablet Take 1 tablet by mouth daily. 90 tablet 3 01/11/2017 03/13/2018 citalopram (CELEXA) 40 mg Tablet Take 20 [...] PM EDT Tech [place] [address] Marguerite Macias 12/19/2023 3:00 PM EDT Office Visit [place] [address] Gardenia Golden, [facility] [place] [address] 01/29/2024 1:[address] [place] [address] César Escobar MD [facility] [place] [address] 01/29/2024 2:30 PM EDT Office [place] [address] César Escobar MD [facility] DR THORACIC SURGERY [place], [place] [id number] documented as of this encounter Procedures Procedure Name Priority Date/Time Associated Diagnosis Comments UNILATERAL BYPASS GRAFT ASSESS Routine 01/05/2018 1:29 PM EDT PAD (peripheral artery disease) SHEFALI, LEGS, MULTIPLE LEVELS Routine 01/05/2018 1:29 PM EDT Intermittent claudication PAD (peripheral artery disease) CAROTID DUPLEX, BILATERAL Routine 01/05/2018 1:29 PM EDT Stenosis of left carotid artery documented in this encounter Results * SHEFALI, legs, multiple levels (01/05/2018 1:29 PM EDT) VB Text Report Department: Vascular Surgery Lab Patient: [id number] (JENNIFER SNYDER) CPT: 94517 ICD10: I73.9 Referring Physician: MARYANN BROWNLEE ?? Indications: Patient with h/o right femoral to above knee popliteal artery bypass graft, ? change in SHEFALI Diabetes mellitus: Yes ICD10 Diagnosis Code: I73.9 Findings: Right ?Pressure (mm Hg) ?? SHEFALI ??Waveform ?TBI ?? Brachial Artery ?169 ? Dorsalis Pedis (Ankle) Artery ?105 ? 0.62 ??Moody-Biphasic ? Posterior Tibial (Ankle) Artery ??135 ? 0.80 ??Moody-Biphasic ? Great Toe ?89 ? 0.53 ?? Left ? Pressure (mm Hg) ?? SHEFALI ??Waveform ?TBI ?? Brachial Artery ?166 ? Dorsalis Pedis (Ankle) Artery ?97 ?0.57 ??Moody-Biphasic ? Posterior Tibial (Ankle) Artery ??97 ?0.57 ??Moody-Biphasic ? Great Toe ?58 ? 0.34 ?? Interpretation: RIGHT: Mild to moderate lower extremity arterial occlusive disease. No identifiable change when compared to the previous exam performed o 08/15/2016. LEFT: Moderate lower extremity arterial occlusive disease to the ankle. Toe-brachial index substantially lower than ankle-brachial index indicates presence of moderately severe arterial occlusive disease in the foot. No identifiable change when compared to the previous exam performed o 08/15/2016. Previous ABIs with change from previous value: [...] 0.73(+.08) 0.48(+.05) ---- ??0.70(-.04) 0.72(-.01) 0.49(+.01) ---- Current ? 0.62(-.08) 0.80(+.08) 0.53(+.04) ---- Date ?LEFT DP ?LEFT PT ?LT [...] 0.54(+.06) 0.38(+.11) ---- ??0.52(-.01) 0.52(-.02) 0.37(-.01) ---- Current ? 0.57(+.05) 0.57(+.05) 0.34(-.03) ---- Electronically Signed by: HUGO CUELLAR on 2018-01-07 05:55:31 PM V[facility] VB Text Report End of Report V[facility] 01/05/2018 1:29 PM EDT Maryann Brownlee MD VASCULAR ORDERABLES Performing Organization Address City/State/ZIP Co vt Phone Number [email or web address] * Carotid Duplex, Bilateral (01/05/2018 1:29 PM EDT) VB Text Report Department: Vascular Surgery Lab Patient: [id number] (JENNIFER SNYDER) CPT: 21888 ICD10: I65.22 Referring Physician: MARYANN BROWNLEE ?? Indications: Patient with known carotid disease, ? change ICD10 Diagnosis Code: I65.22 Findings: ICA Proximal, Right ? PSV (cm/s): 92 ? EDV (cm/s): 32 ? ICA/CCA: 1.7 ? Plaque Structure: Echogenic ? Plaque Surface: Irregular ? %Stenosis: <15% ICA Distal, Right ? PSV (cm/s): 59 ? EDV (cm/s): 22 ? ICA/CCA: 1.1 CCA Distal, Right ? PSV (cm/s): 53 ? EDV (cm/s): 13 ? %Stenosis: <50% CCA Proximal, Right ? PSV (cm/s): 105 ? EDV (cm/s): 0 External Carotid Artery, Right ? PSV (cm/s): 89 ? EDV (cm/s): 11 ? %Stenosis: <50% Vertebral, Right ? PSV (cm/s): 53 ? EDV (cm/s): 18 ? Direction of Flow: Antegrade ICA Proximal, Left ? PSV (cm/s): 326 ? EDV (cm/s): 87 ? ICA/CCA: 3.7 ? Plaque Structure: Echogenic ? Plaque Surface: Irregular ? %Stenosis: 50-69% ICA Distal, Left ? PSV (cm/s): 71 ? EDV (cm/s): 26 ? ICA/CCA: 0.8 CCA Distal, Left ? PSV (cm/s): 89 ? EDV (cm/s): 26 ? %Stenosis: <50% CCA Proximal, Left ? PSV (cm/s): 76 ? EDV (cm/s): 18 External Carotid Artery, Left ? PSV (cm/s): 219 ? EDV (cm/s): 18 ? %Stenosis: >50% Vertebral, Left ? PSV (cm/s): 66 ? EDV (cm/s): 24 ? Direction of Flow: Antegrade Interpretation: RIGHT: There is irregular plaque in the common carotid artery causing 30-35% stenosis by electronic calipers. There is irregular plaque in the proximal internal carotid artery causing <15% stenosis when compared to the more distal internal carotid artery. The bifurcation level is in the mid neck. No identifiable change when compared to the previous exam performed on 08/15/2016. LEFT: There is irregular plaque in the common carotid artery causing 35-40% stenosis by electronic calipers. There is bulky irregular plaque in the proximal internal carotid artery causing 50-69% stenosis when compared to the more distal internal carotid artery. Patent ECA with a >50% stenosis. The bifurcation level is in the mid neck. No identifiable change when compared to the previous exam performed on 08/15/2016. Vertebral Artery Data: Patent vertebral arteries with [...] ?1.00 ? 50-69% ? 315 ?? 3.40 Current Exam ? <15% ? 92 ?1.70 ? 50-69% ? 326 ?? 3.70 Electronically Signed by: HUGO CUELLRA on 2018-01-07 05:51:34 PM [facility] VB Text Report End of Report VAS[facility] 01/05/2018 1:29 PM EDT Maryann Brownlee MD VASCULAR ORDERABLES VAS[facility] * Unilat Bypass Graft Assess (01/05/2018 1:29 PM EDT) VB Text Report Department: Vascular Surgery Lab Patient: [id number] (JENNIFER SNYDER) CPT: 11246 ICD10: I73.9;I77.1 Referring Physician: BRIDGET NAVARRETE ?? Indications: Patient with h/o right femoral to above knee popliteal artery bypass graft with known stenosis, ? change/patency ICD10 Diagnosis Code: I73.9, I77.1 Findings: Right ? PSV (cm/s) ??EDV ??Location ? Inflow Anastomosis ? 385 ?? 23 ??Common Femoral Artery, Right ? Proximal Graft ? 504 ?0 ? High Thigh (Graft) ?54 ?0 ? Mid Graft ? 45 ?0 ? Mid Thigh (Graft) ? 46 ?0 ? Low Thigh (Graft) ? 50 ?0 ? Distal Graft ?48 ?4 ? Outflow Anastomosis ? 50 ?3 ??Popliteal Artery, Above Knee Right ?? Outflow Artery (Graft) ?56 ?8 ??Popliteal Artery, Above Knee Right ?? Interpretation: RIGHT: Patent common femoral to above knee popliteal artery bypass graft. There are elevated velocities at the proximal anastomosis (PSV 385 cm/s; previously 369 cm/s) and a focal stenosis in the proximal graft (PSV 504 cm/s, 3.8 x step-up; previously PSV 340 cm/s, 2.8 x step-up) which are consistent with a >50% stenosis. Comparison: Significant progression of the proximal graft stenosis with no identifiable change through the remainder of the graft when compared to the previous exam performed on 08/15/2016. Technical Omission: The common femoral artery inflow image was not saved however vessel is noted to be patent. Notification: Ofelia Polanco APRN was informed of these preliminary findings. Electronically Signed by: HUGO CUELLAR on 2018-01-07 05:55:12 PM [facility] VB Text Report End of Report [facility] 01/05/2018 1:29 PM EDT Bridget Navarrete MD VASCULAR ORDERABLES [facility] documented in this encounter Visit Diagnoses Diagnosis PAD (peripheral artery disease) Peripheral vascular disease, unspecified Stenosis of left carotid artery Occlusion and stenosis of carotid artery without mention of cerebral infarction Intermittent claudication Peripheral vascular disease, unspecified documented in this encounter Care Teams Kosher Sealer Relationship Specialty Start Date End Date Shirley Yu MD [address] [place] [address] PCP - General 11/19/14 documented as of this encounter
--- OUTSIDE RECORDS SUMMARY | 2023-12-13 18:29 | XMS_ITS | Encounter Summary ---
[place] [address] Care Team Providers Care Lumber Carrier Name Role Phone Shirley Yu MD Primary Care Provider [phone] Encounter Details Date Type Department Care Team (Late Contact Info) Description 05/04/2018 Orders [place] [phone] Rambo Beaulieu MD [facility] [place] [address] Social History Tobacco Use Types Packs/Day Years [...] Tech [place] [address] Marguerite Macias 12/19/2023 3:00 PM EDT Office Visit [place] [address] Gardenia Golden APRN [facility] [place] [address] 01/29/2024 1:[address] [place] [phone] César Escobar MD [facility] [place] [address] 01/29/2024 2:30 PM EDT Office Visit [place] [phone] César Escobar MD [facility] [place] [address] documented as of this encounter Visit Diagnoses Not on filedocumented in this encounter Care Teams Lumber Carrier Relationship Specialty Start Date End Date Shirley Yu MD [address] [place] [address] PCP - General 11/19/14 documented as of this encounter
--- OUTSIDE RECORDS SUMMARY | 2023-12-13 18:29 | XMS_ITS | Encounter Summary ---
[place] [address] Care Team Providers Care Near East Archeology Professor Name Role Phone Shirley Yu MD Primary Care Provider [phone] Reason for Visit * Reason Comments Claudication pt here for wosenig claudication f/u and plan of care Encounter Details Date Type Department Care Team (Late st Contact Info) Description 03/19/2018 1:00 PM EST Office [place] [phone] Kaity Fontaine MD [facility] [place] [address] PVD (peripheral vascular disease); Pulmonary nodules Social History Tobacco Use Types [...] Sign Reading Time Taken Comments Blood Pressure 155/67 03/19/2018 1:36 PM EST Pulse 78 03/19/2018 1:36 PM EST Temperature - - Respiratory Rate 18 03/19/2018 1:36 PM EST Oxygen Saturation - - Inhaled Oxygen Concentration - - Weight 96.2 kg (212 lb) 03/19/2018 1:36 PM EST Height 170.2 cm (5' 7) 03/19/2018 1:36 PM EST Body Mass Index 33.2 03/19/2018 1:36 PM EST documented in this encounter Progress Notes * Kaity Fonatine MD - 03/19/2018 1:00 PM EST Vascular Surgery Clinic Visit March 19, 2018 CC: Patient is a 57 y.o. female who is here for follow up of failing right fem-AK-pop vein graft. 2000 L CEA (Dr Fong) 2004 R CEA (Dr Avendano) ?? 2007 R fem-AK-pop bypass with GSV (Dr Avendano) 2012 L EIA stent (8x60 SE p7), RLE vein graft ROD MILL TENDER (Dr Avendano) Presents for scheduled follow up visit. Continues to have RLE claudication symptoms. No rest pain or non-healing wounds. No symptoms in left leg. Has undergone CTA with BLE runoff since last visit which was reviewed. CTA shows dissection/stenosis at the right SHIRT HEMMER as well as stenosis at the distal anastomosis and the standing rock popliteal artery. In addition, there has been an interval enlargement of 9mm left and 8mm right lower lobe pulmonary nodules. We will plan for RLE angiogram/intervention for vein graft salvage. If this is unsuccessful, she may need revision of the vein graft vs a new bypass. She was instructed to continue with aspirin but hold pradaxa for 48hrs prior to the RLE angiogram, tentatively planned for 04/27/18. As for the pulmonary nodules, we will arrange for her to be seen by Thoracic Surgery. I spent 15 minutes of this 25 minute visit (more than 50%) counseling the patient on the plan and treatment options. Kaity Fontaine MD documented in this encounter Plan of Treatment Upcoming Encounters Date Type Department Care Team (Late st Contact Info) Description 12/19/2023 1:00 PM EDT Tech [place] [phone] Marguerite Macias 12/19/2023 3:00 PM EDT Office [place] [address] Gardenia Golden APRN [facility] [place] [address] 01/29/2024 1:[address] [place] [phone] César Escobar MD [facility] [place] [address] 01/29/2024 2:30 PM EDT Office [place] [address] César Escobar MD [facility] [place] [address] documented as of this encounter Visit Diagnoses Diagnosis PVD (peripheral vascular disease) Peripheral vascular disease, unspecified Pulmonary nodules Other nonspecific abnormal finding of lung field documented in this encounter Care Teams Near East Archeology Professor Relationship Specialty Start Date End Date Shirley Yu MD [address] [place] [address] PCP - General 11/19/14 documented as of this encounter
--- OUTSIDE RECORDS SUMMARY | 2023-12-13 18:29 | XMS_ITS | Encounter Summary ---
Author Organization [facility] [place] [address] Care Team Providers Care Diesel Fitter Mechanic Name Role Phone Shirley Yu MD Primary Care Provider [phone] Encounter Details Date Type Department Care Team (Latest Contact Info) Description 04/23/2018 9:45 AM EST Laboratory Appointment Lab [address] [place] [address] PVD (peripheral vascular disease) with claudication Social [...] PM EDT Tech [place] [address] Marguerite Macias 12/19/2023 3:00 PM EDT Office [place] [address] Gardenia Golden, EARLY MORNING BABYSITTER [facility] [place] [address] 01/29/2024 1:[address] [place] [place] [address] César Escobar MD [facility] [place] [address] 01/29/2024 2:30 PM EDT Office [place] [address] César Escobar MD [facility] [place] [address] documented as of this encounter Procedures Procedure Name Priority Date/Time Associated Diagnosis Comments CREATININE STAT 04/23/2018 9:38 AM EST PVD (peripheral vascular disease) with claudication documented in this encounter Results * (ABNORMAL) Creatinine (04/23/2018 9:38 AM EST) Creatinine 1.59(H) 0.70 - 1.20 mg/dL [facility] Est Glomerular Filtration Rate 35(L) >=60 mL/min/1.7 3 m?? [facility] Comment: The eGFR was calculated using the CKD-EPI equation. As with all creatinine based estimates of kidney function, eGFR values calculated with the CKD-EPI equation are not accurate in patients with acute kidney failure, extremes of body mass or the acutely ill. [email or web address]/[facility] eGFR 41(L) >=60 mL/min/1.7 3 m?? [facility] Comment: The eGFR was calculated using the CKD-EPI equation. As with all creatinine based estimates of kidney function, eGFR values calculated with the CKD-EPI equation are not accurate in patients with acute kidney failure, extremes of body mass or the acutely ill. http://[employer]/[email or web address] Blood specimen (specimen) 04/23/2018 9:38 AM EST 04/23/2018 9:48 AM EST Narrative Resulting Agency Comment Spec In Lab Kaity Fontaine MD CHEMISTRY ORDERABLES [facility] [place] [address] documented in this encounter Visit Diagnoses Diagnosis PVD (peripheral vascular disease) with claudication Peripheral vascular disease, unspecified documented in this encounter Care Teams Diesel Fitter Mechanic Relationship Specialty Start Date End Date Shirley Yu MD [address] [place] [address] PCP - General 11/19/14 documented as of this encounter
--- OUTSIDE RECORDS SUMMARY | 2023-12-13 18:29 | XMS_ITS | Encounter Summary ---
[place] [address] Care Team Providers Care Draw Hand Name Role Phone Shirley Yu MD Primary Care Provider [phone] Reason for Referral * Diagnostic Test (Routine) - Closed Specialty Diagnoses / Procedures Referred By Contac t Referred To Contact Radiology Diagnoses PVD (peripheral vascular disease) with claudication Procedures VS Arteriogram Lower Extremity Vascular Surgery [facility] V[facility] [address] [place] [phone] [place] [address] Referral ID Status Reason Start Date Expiration Date V isits Requested Visits Authorized [id number] Closed Specialty Service Requested 03/20/2018 03/20/2019 1 1 Reason for Visit * Diagnostic Test (Routine) - Closed Specialty Diagnoses / Procedures Referred By Contac t Referred To Contact Radiology Diagnoses PVD (peripheral vascular disease) with claudication Procedures VS Arteriogram Lower Extremity Vascular Surgery [facility] V[facility] [address] [place] [phone] [place] [address] Referral ID Status Reason Start Date Expiration Date V isits Requested Visits Authorized [id number] Closed Specialty Service Requested 03/20/2018 03/20/2019 1 1 Encounter Details Date Type Department Care Team (Latest Contact Info) Description 04/27/2018 10:21 AM EST - 04/27/2018 11:59 PM EST Hospital Encounter Radiology at [facility] [place] [address] Kaity Fontaine MD [facility] [address] PVD (peripheral vascular disease) with claudication Discharge Disposition: Home Social History Tobacco [...] Sign Reading Time Taken Comments Blood Pressure 142/54 04/27/2018 4:15 PM EST Pulse 67 04/27/2018 2:05 PM EST Temperature 36.1 ??C (97 ??F) 04/27/2018 2:19 PM EST Respiratory Rate 16 04/27/2018 4:15 PM EST Oxygen Saturation 90% 04/27/2018 4:15 PM EST Inhaled Oxygen Concentration - - Weight 97.7 kg (215 lb 6.2 oz) 04/27/2018 10:39 AM EST Height - - Body Mass Index 34.25 04/23/2018 12:18 PM EST documented in this encounter Discharge Instructions * Discharge Instructions* Randa Portillo RN - 04/27/2018 12:33 PM EST [facility] Interventional Radiology Post Angiography Instructions Procedure: RLE angiogram Puncture Site: Left Date: 04/27/18 Physician: Brittnee Corona Zamor 1. At home we advise you to rest quietly in bed or on the couch with your hip straight until the next morning. Until the next morning you may get up only to go to the bathroom. 2. Resume your previous diet. Drink 6-8 ounces of fluid per hour for the next 8 hours. Avoid alcoholic or caffeinated beverages for 24 hours. 3. Avoid strenuous activity for the next 48 hours, particularly in the next 24 hours. Stair climbing should be kept to a minimum. Do not lift objects heavier than 10-15 pounds for the next 48 hours Avoid straining for bowel movements as you can pop open the clot that has formed on the artery. 4. If you develop bulging under the skin or bleeding at the puncture site, put direct pressure on the puncture site for 15 minutes and call your doctor. If the bleeding persists, reapply pressure, and go to your local Emergency Department. 5. If you notice a sudden change in the feeling (numbness, tingling and/or pain) of your leg on theside of the puncture call your doctor. 6. You may develop a bruise at the puncture site. This should go away within a week to 10 days. If a bulge develops after the first three days, call your doctor or the Radiology/Vascular Department here. Report signs of infection (redness, swelling, discharge, soreness, or fever) to your doctor. 7. Leave the bandage on for 24-48 hours. You may shower the following day after the procedure. You should NOT swim or tub bathe for [address] for 24 hours after the procedure. Do not sign any important documents or smoke unattended for 24 hours. You may return to work with the above restrictions on . 9. If you have any questions or concerns, please call Interventional Radiology Department at until 6pm. After 6pm, or on weekends or hoildays, call and ask for the regional vice president life sales information consultant. OR Vascular Department at until 4:45pm. After 4:45pm call and ask for the Vascular resident information consultant. 10. If you are a diabetic and take Metformin or Janumet, Do not take it for 2 days after the procedure. XX You have received medication during your procedure to help lesson anxiety and keep you comfortable and which affects judgement and reaction time. We recommend that you do not drive, operate equipment, sign any important documents, or smoke unattended for 24 hours following your procedure. Because of the sedation please be careful on stairs, as you may be unsteady on your feet. You may resume your regular diet as tolerated. IV site -- slight redness, or tenderness is normal, you can use a warm compress. If tenderness and redness increases or foul drainage occurs, please contact your M. D. Revised 04/24/15 documented in this encounter Medications at Time [...] TWICE A DAY 98 07/26/2016 Diabetic Supplies, [employer]. Mis Form faxed to [employer] for pump supplies. 100 each 12 03/23/2015 [...] as of this encounter Progress Notes * Nilam Florian RN - 04/27/2018 12:28 PM EST To procedure room 1 via stretcher. Onto table supine (position) All monitors, O2, safety strap in place. Med's per protocol. Angio only post procedure: Time sheath removed: Side: Left Groin Closure device used: Mynx Hematoma present? Site release time: Anticipated up time: * Randa Portillo RN - 04/27/2018 12:[address] Beaulieu notified of BS at 325. Pt has insulin pump and gave 8 units to self at 1100. Pt states long acting insulin and will not take full effect for 2-3hr period. Determined to proceed with procedure by vascular staff. * Nilam Florian RN - 04/24/2018 8:17 AM EST ANGIO NURSING DATABASE Name: JENNIFER [place] Date of : 1960 AGE: 57 y.o. Address: [address] [place] [address] (home) Mobile: No relevant phone numbers on file. Referring Provider: Kaity Fontaine REASON FOR VISIT: RLE angiogram Question Answer Comment Where will study be performed? [facility] Laterality Right Reason for exam and clinical history: failing vein graft/PVD Exam/Procedure requested: RLE angio/intervention Is the patient on anticoagulant / anitplatelet therapy ? Aspirin ASA-continue; pradaxa-stop 2 days before the IR procedure Date/time of procedure: 04/27/18 prep time 1030, procedure time 1130 Pertinent info from Pre-call (if any): Labs ordered: Meds stopped: Continue ASA, Stop pradaxa two days prior to procedure Allergies Allergen Reactions ??? Sulfa (Sulfonamide Antibiotics) Other (See Comments) Renal failure, bleeding ??? Pcn [Penicillins] Unknown Pertinent PMH: Patient Active Problem List Diagnosis Code ??? 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 CATARACT EXTRACTION, EXTRACAPSULAR, W/ LENS INSERTION 06/2013 OU - Dr Szymanski ? ? PRO EDG FLEXIBLE TRANSORAL ABLATE TUMOR POLYP/LESION W/DILATION & WIRE N/A 06/22/2016 EGD, TRANSORAL; WITH ABLATION OF TUMOR(S), POLYP(S), OR OTHER LESION(S) (WRVU 4.26) performed by Christos Donald MD at [facility] ??? PRO UPPER GI ENDOSCOPY, BIOPSY N/A 10/24/2016 UPPER GASTROINTESTINAL ENDOSCOPY,WITH BIOPSY SINGLE OR MULTIPLE (WRVU 2.49) performed by Agapito Parmar MD at [facility] ??? PRO UPPER GI ENDOSCOPY, DIAGNOSTIC N/A 06/22/2016 EGD, UPPER GI ENDOSCOPY performed by Christos Donald MD at [facility] ??? RETINAL LASER SURGERY Left [...] SFA stents ??? VASCULAR SURGERY 1009 Right ASSISTANT PORTFOLIO MANAGER-AK pop vein graft ??? YAG CAPSULOTOMY Right 02/27/15 YAG CAP OD - Nessa Date/Procedure Comments: 12-14-06 LLE A-Gram with stents placed Heparin 8000units, Versed 5.5mg., Fentanyl 225mcg. 12-16-05 RLE A-gram with stents placed Heparin 8000 units, Versed 5.5mg. Fentanyl 275, NTG 11-17-05 Bilateral Aortogram Versed 4mg., Fentanyl 175mcg. 09/11/12 [id number] w/stent&REFERRAL MANAGEMENT LIAISON to [facility] [id number] anurag well 12/05/14 Diagnostic RLE A-Gram with CO2 Clindamycin 900 mg IV, fentanyl 200 mcg IV, versed 4mg IV 04/27/18 RLE Angiogram w/REFERRAL MANAGEMENT LIAISON ??Clindamycin 900mg, Fentanyl 250mcg, Versed 4.0 mg, Heparin 7000unitsIV ?? Laboratory Results: Lab Results Component Value Date CREATININE 1.59 (H) 04/23/2018 Lab Results Component Value Date K 4.4 01/25/2018 Lab Results Component Value Date PLATELET 233 01/25/2018 Medications: Prior to Admission medications Medication Sig Start Date End Date Taking? Authorizing Provider levothyroxine (SYNTHROID) 125 mcg Tablet TAKE ONE TABLET BY MOUTH EVERY DAY 03/14/18 Lluvia Oropeza APRN simvastatin (ZOCOR) 40 mg Tablet 12/13/17 PROVIDER, HISTORICAL ONETOUCH ULTRA TEST Strip 1 strip by Other route 4 times daily. 11/23/16 PROVIDER, HISTORICAL citalopram (CELEXA) 40 mg Tablet Take 20 mg by mouth 2 times daily. 11/09/16 PROVIDER, HISTORICAL pantoprazole (PROTONIX) 40 mg Tablet, Delayed Release (E.C.) TAKE ONE TABLET BY MOUTH TWICE A DAY 07/26/16 PROVIDER, HISTORICAL carvedilol (COREG) 3.125 mg Tablet Take 1.56 mg by mouth 2 times daily (with meals). PROVIDER, HISTORICAL dabigatran (PRADAXA) 150 mg Capsule Take 1 capsule by mouth 2 times daily. 08/24/15 Abiodun Avendano MD Diabetic Supplies, [employer]. Misc Form faxed to [employer] for pump supplies. 03/23/15 Lluvia Oropeza APRN losartan (COZAAR) 100 mg Tablet Take 50 mg by mouth daily. 08/11/14 PROVIDER, HISTORICAL cilostazol (PLETAL) 100 mg tablet Take 1 tablet by mouth 2 times daily. 10/15/12 Mario Avendano MD Magnesium 250 mg Tab Take by mouth daily. PROVIDER, HISTORICAL aspirin 81 mg EC tablet Take 81 mg by mouth daily. PROVIDER, HISTORICAL insulin lispro (HUMALOG) 100 unit/mL injection Inject 55-60 Units subcutaneously continuous. Via insulin pump PROVIDER, HISTORICAL documented in this encounter H&P Notes * Rambo Beaulieu MD - 04/27/2018 7:56 AM EST Vascular Surgery Pre-IR H&P HPI: Jennifer [place] is a 57 y.o. female, seen in clinic by Dr. Fontaine 03/19/18 for follow up of continued/recurrent RLE claudication symptoms post fem-AK-pop vein graft (2012). No rest pain or non-healing wounds. No symptoms in left leg. CTA 03/19 showed dissection/stenosis at the right ASSISTANT PORTFOLIO MANAGER as well as stenosis at the distal anastomosis and the [place] popliteal artery. Plan for RLE angiogram/intervention for vein graft salvage. 2000 L CEA (Dr Fong) 2004 R CEA (Dr Avendano) ?? 2007 R fem-AK-pop bypass with GSV (Dr Avendano) 2012 L EIA stent (8x60 SE p7), RLE vein graft REFERRAL MANAGEMENT LIAISON (Dr Avendano) Past Medical History: Diagnosis Date ??? Allergy Sulfa, Penicillin ??? Cardiac disease PAD ??? Cataract ??? Depression 02/18/2015 ??? Diabetes mellitus Type 1 ??? DM eyes ??? Hyperlipidemia ??? Hypertension ??? Skin disease Hyperkeratosis palmaris et plantaris ??? Thyroid disease Hyperthyroidism Past Surgical History: Procedure Laterality Date ??? CATARACT EXTRACTION, EXTRACAPSULAR, W/ LENS INSERTION 06/2013 OU - Dr Szymanski ? ? PRO EDG FLEXIBLE TRANSORAL ABLATE TUMOR POLYP/LESION W/DILATION & WIRE N/A 06/22/2016 EGD, TRANSORAL; WITH ABLATION OF TUMOR(S), POLYP(S), OR OTHER LESION(S) (WRVU 4.26) performed by Chirstos Donald MD at [facility] ??? PRO UPPER GI ENDOSCOPY, BIOPSY N/A 10/24/2016 UPPER GASTROINTESTINAL ENDOSCOPY,WITH BIOPSY SINGLE OR MULTIPLE (WRVU 2.49) performed by Agapito Parmar MD at [facility] ??? PRO UPPER GI ENDOSCOPY, DIAGNOSTIC N/A 06/22/2016 EGD, UPPER GI ENDOSCOPY performed by Christos Donald MD at [facility] ??? RETINAL LASER SURGERY Left [...] SFA stents ??? VASCULAR SURGERY 1009 Right ASSISTANT PORTFOLIO MANAGER-AK pop vein graft ??? YAG CAPSULOTOMY Right 02/27/15 YAG CAP OD - Nessa Family History Problem Relation Age [...] Hx ??? Amblyopia Neg Hx Social History Socioeconomic History ??? Marital status: [...] Last attempt to quit: 08/14/2014 Years since quittin.7 ??? Smokeless tobacco: Never Used ??? Tobacco comment: Smoked 1 ppd for 30 years Substance and Sexual Activity ??? Alcohol use: No ??? Drug use: No ??? Sexual activity: Not on file Other Topics Concern ??? Not on file Social History Narrative ??? Not on file Medications: Current Outpatient Medications Medication Sig Dispense Refill ??? levothyroxine (SYNTHROID) 125 mcg Tablet TAKE ONE TABLET BY MOUTH EVERY DAY 90 tablet 3 ??? simvastatin (ZOCOR) 40 mg Tablet ??? [employer] ULTRA TEST Strip 1 strip by Other [...] Diabetic Supplies, [employer]. Misc Form faxed to [employer] for pump supplies. 100 each 12 ??? [...] pump No current facility-administered medications for this encounter. Allergies: Sulfa (sulfonamide antibiotics) and Pcn [penicillins] Physical Exam: Gen: NAD, alert and oriented x3 Cardiac: Regular rate and rhythm Abd: Soft, NT ND Ext: femoral pulses not readily palpable. No lower extremity tissue loss. Dopplerable DP and PT signals bilaterally. Motor function intact. Imaging: Bl LE runoff 03/19/18 RIGHT LOWER EXTREMITY Common iliac artery: Patent with stable moderate mural calcification. External iliac artery: Stable mild noncalcified proximal stenosis. Internal iliac artery: Patent with mural calcification Common femoral artery: Moderately circumferentially stenotic with new nonobstructing focal dissection. Superficial femoral artery: Stable moderate origin stenosis. Patent right superficial femoral to popliteal artery graft. Stented [place] right superficial femoral artery chronically occluded. Profundus femoral artery: Widely patent. Popliteal artery: Progression of peripherally calcified severely stenotic above knee popliteal artery. Delayed filling of runoff vasculature with simultaneous venous opacification limits evaluation for patency. Patent anterior tibial artery to dorsalis pedis artery. ?? LEFT LOWER EXTREMITY Common iliac artery: Stable densely calcified moderately stenotic left common iliac artery origin. Stented left common iliac artery patent. External iliac artery: Proximally stented, patent. Internal iliac artery: Patent with mural calcification Common femoral artery: Peripherally calcified moderately stenotic, stable. Superficial femoral artery: Occluded Profundus femoral artery: Widely patent. Popliteal artery: Geniculate recanalization of the above-knee popliteal artery. Anterior tibial artery: Patent, to patent dorsalis pedis artery. Delayed filming of runoff vasculature with simultaneous venous opacification limits evaluation for patency of remaining runoff vessels. RLE: New nonobstructing focal dissection of the moderately circumferentially stenotic right common femoral artery. Patent right SFA to popliteal artery bypass graft. IMPRESSION: LLE: Stable moderately stenotic left common iliac artery origin. Stable peripherally calcified moderately stenotic left common femoral artery origin. Chronic occlusion left superficial femoral arterywith geniculate recanalization of the above knee left popliteal artery. Bilaterally anterior tibial arteries to dorsalis pedis arteries are patent however there is mixing the runoff vasculature size though distinguishing run off posterior tibial and peroneal arteries from veins is not possible on this Study. ABIs 03/14/18 Findings: Right ?Pressure (mm Hg) ?? SHEFALI ??Waveform ? TBI ?? Brachial Artery ?154 ? Dorsalis Pedis (Ankle) Artery ?76 ?0.49 ??Monophasic ? Posterior Tibial (Ankle) Artery ??87 ?0.56 ??Monophasic ? Great Toe ?54 ?0.35 ?? Left ? Pressure (mm Hg) ?? SHEFALI ??Waveform ? TBI ?? Brachial Artery ?152 ? Dorsalis Pedis (Ankle) Artery ?71 ?0.46 ??Monophasic ? Posterior Tibial (Ankle) Artery ??71 ?0.46 ??Monophasic ? Great Toe ?47 ?0.31 ?? Interpretation: RIGHT: Moderate lower extremity arterial occlusive disease. Significant deterioration compared to previous exam. LEFT: Moderately severe lower extremity arterial occlusive disease. No [...] 0.72(-.01) 0.49(+.01) ---- ??0.62(-.08) 0.80(+.08) 0.53(+.04) ---- Current ? 0.49(-.13) 0.56(-.24) 0.35(-.18) ---- Date ?LEFT DP ?LEFT PT ?LT [...] 0.52(-.02) 0.37(-.01) ---- ??0.57(+.05) 0.57(+.05) 0.34(-.03) ---- Current ? 0.46(-.11) 0.46(-.11) 0.31(-.03) ---- RLE duplex 03/14/18 Indications: f/u stenosis of R proximal anastomosis region in fem-AK pop bypass. ICD10 Diagnosis Code: Z95.828 Findings: Right ?PSV (cm/s) ??EDV ?? Inflow Artery ? 500 ?? 57 ?? Inflow Anastomosis ?204 ?? 38 ?? Proximal Graft ?566 ?? 70 ?? High Thigh (Graft) ? 63 ?? 10 ?? Mid Thigh (Graft) ?53 ?? 11 ?? Distal Graft ? 35 ?6 ?? Outflow Anastomosis ?66 ?? 11 ?? Common Femoral Artery, Mid ?173 ?? 24 ?? Common femoral artery, Distal ? 500 ?? 57 ?? Popliteal Artery, Above Knee ?105 ?? 24 ?? Popliteal Artery, Mid ? 117 ?? 16 ?? Popliteal Artery, Below Knee ? 70 ?9 ?? Outflow Artery (Graft)?105 ?? 24 ?? Interpretation: Right- Patent ASSISTANT PORTFOLIO MANAGER inflow with a PSV of 500 cm/s consistent with a > 50% stenosis. There is a PSV of 200 cm/s in the proximal anastomosis that is at threshold for a > 50% stenosis. There is an other stenotic segment just beyond the proximal anastomosis in the very proximal bypass graft with a PSV of 566 cm/s ( > 50% stenosis. The remaining bypass graft is patent with no evidence of stenosis. Patent popliteal outflow with diffuse plaque, but no focal stenosis. Overall, significant progression of stenosis compared to the previous exam 01/05/18. Patient feels that the leg is getting worse Assessment and Plan: Patient is a 57 y.o. female, seen in clinic by Dr. Fontaine 03/19/18 for follow upof continued/recurrent RLE claudication symptoms post fem-AK-pop vein graft (2012). CTA 03/19 showed dissection/stenosis at the right ASSISTANT PORTFOLIO MANAGER as well as stenosis at the distal anastomosis and the [place] popliteal artery. - RLE angiogram/intervention for vein graft salvage. - patient instructed to hold pradaxa doses 48 hrs prior ASA: 3 Mal: 2 Creatinine: 1.6 (04/23, baseline) documented in this encounter Procedure Notes * Rambo Beaulieu MD - 04/27/2018 11:59 PM ESTProcedure(s): ANGIOGRAPHY, EXTREMITY, JOCELYN., S & I Pre-Procedure Diagnose(s): Critical lower limb ischemia Post-Procedure Diagnose(s): Critical lower limb ischemia Vascular Surgery Angiography Operative Note ?? Pre-Procedure Diagnosis: 1. Critical limb ischemia post fem-AK pop vein graft (2012) 2. Recurrent RLE claudication ?? Post-Procedure Diagnosis: 1. Critical limb ischemia post fem-AK pop vein graft (2012) 2. Recurrent RLE claudication ?? Procedure: 1. Left femoral arterial access with ultrasound and fluoroscopic guidance 2. First order selective catheterization of the right common iliac, external iliac, superficial femoral and popliteal arteries with angiography 3. Angioplasty of proximal vein graft / right femoral artery and distal vein graft / right popliteal artery 4. Mynx closure of left ASSISTANT PORTFOLIO MANAGER access ?? Surgeon(s): J. Fontaine, M. Brittnee ?? Intra-procedural Medications: Versed dose: 4 mg Fentanyl dose: 250 mcg Local anesthetic: 8 cc 1% lidocaine Heparin: Yes 7000 Units Protamine: Yes 35 mg Antibiotics: Clindamycin 900 mg IV ? Fluoro Time: 10.9 min Contrast: 40 mL Sheath Size: 6 Fr ?? Indications for the procedure: Critical limb ischemia, recurrent RLE claudication post fem-AK pop vein graft (2012) Emergent? No ?? Findings: - Dr. Fontaine was present for the entirety of this procedure. ?? - Sheath access in left groin ?? - RLE angiography demonstrated: Right common femoral artery: Widely patent ?? Right profunda femoris: Widely patent Right superficial femoral artery: Occluded; previously placed SFA stents noted. Irregularity at thefemoral artery - vein graft anastomosis (approximately 4 cm) and focal high grade stenosis within 2cm of the anastomosis (80-90%). Short segment stenosis of the distal vein graft immediately above the anastomosis (70%). ?? Right popliteal artery: Mid and distal popliteal artery widely patent. Right tibial vessels: CHANTAL and REFERRAL MANAGEMENT LIAISON are widely patent. Mild irregularity of the peroneal artery. Three vessel runoff to the level of the ankle. Pedal / tarsal vessels are well opacified. ?? - Intervention: Angioplasty of proximal vein graft / right femoral artery and distal vein graft / right popliteal artery ?? - Completion angiogram demonstrated no significant residual stenosis either the proximal or distal vein graft ?? - Closure device: Mynx ?? Intervention(s): There were 2 vein segments treated ?? 1. The proximal aspect of the vein graft and anastomosis was treated. This was a TASC A lesion witha 4 cm segment of irregularity and a focal area of high grade stenosis (80-90%), total treatment length of 4 cm. This was treated with balloon angioplasty, 6mm x 10cm (David) via a 6 fr Destination sheath. The final angioplasty diameter was 6 mm. The final result was technically successful. ?? 2. The distal aspect of the vein graft and anastomosis was treated. This was a TASC A lesion with a1 cm focal stenosis (70%), total treatment length of 2 cm. This was treated with balloon angioplasty, initially 4mm x 4cm (Rena), then 5mm x 6cm (David) via a 6 fr Destination sheath. The finalangioplasty diameter was 5 mm. The final result was technically successful. Procedure in detail: ?? The patient was properly identified in the pre-operative holding area. After discussions of the risks and benefits, operative consent was obtained. The patient was brought to the angiography suite and placed in the angio table. The patient was prepped and draped in the usual sterile fashion. A time-out was performed by the attending surgeon confirming the patient, the intended procedure, the sideof intervention and equipment needed. Split doses of fentanyl and versed were administered for conscious sedation by the Interventional Radiology nurse during continuous monitoring of pulse, blood pressure and oxygen saturation. ?? After injection of local anesthetic, percutaneous access was obtained via the Left femoral artery under fluoroscopic guidance using a micro puncture technique. A cope wire was inserted and upsized toa 5 [place] sheath over a stiff glidewire. A 5F Omni flush catheter was then advanced into the infrarenal aorta over the wire. The glidewire was advanced into the external iliac artery. Catheter was exchanged for a 5 Fr Berenstein catheter, and catheter was advanced to the external iliac artery. Angiography of the right lower extremity was performed, findings as detailed above. ?? Glidewire and Berenstein catheter were used to select the vein graft. The short 5 Fr sheath was exchanged for a 6 Fr Destination sheath (45 cm) over a stiff Amplatz wire, tip positioned within the femoral artery. The segment of distal vein graft stenosis was crossed utilizing a straight support catheter ([place] 5 Fr, 135 cm) and 0.018 inch angled tip quick-cross wire after initial attempt using an 0.018 inch Th[employer]way guidewire. The distal vein graft was angioplastied, first 4mm x 4cm (Rena, OTW), then 5mm x 6cm (David, OTW). A contrast study was performed. Then the proximal vein graft was angioplastied, 6mm x 10cm (David, OTW). A contrast study was performed. ?? The wire and catheter were removed. The Destination sheath was exchanged for a short 6 Fr sheath, and hemostasis was achieved at the left ASSISTANT PORTFOLIO MANAGER access site with Mynx closure and manual compression. ?? Dr. Fontaine was present for the entire procedure. ?? Closure device: Mynx Complications: No ?? Plan: 1. Right leg straight and head of bed <30 degrees x 2 hrs. 2. ABIs and RLE duplex US in 1mo. Associated attestation - Kaity Fontaine MD - 05/02/2018 4:41 PM EST I was the attending physician supervising the resident/fellow in the above care and I was present with the resident/fellow for the entire procedure. ? I was present during the intraservice time as documented by the sedation RN. Kaity Fontaine MD documented in this encounter Plan of Treatment Upcoming Encounters Date Type Department Care Team (Late st Contact Info) Description 12/19/2023 1:00 PM EDT Tech Visit Vascular Lab at [place] [phone] Marguerite Macias 12/19/2023 3:00 PM EDT Office [place] [address] Gardenia Golden APRN [facility] [place] [address] 01/29/2024 1:[address] [place] [phone] César Escobar MD [facility] [place] [address] 01/29/2024 2:30 PM EDT Office [place] [address] César Escobar MD [facility] DR THORACIC SURGERY [place], [place] [id number] documented as of this encounter Procedures Procedure Name Priority Date/Time Associated Diagnosis Comments POCT GLUCOSE Routine 04/27/2018 2:27 PM EST VS ARTERIOGRAM LOWER EXTREMITY VASCULAR SURGERY Routine 04/27/2018 2:17 PM EST PVD (peripheral vascular disease) with claudication POCT GLUCOSE Routine 04/27/2018 12:08 PM EST POCT GLUCOSE Routine 04/27/2018 11:38 AM EST POCT GLUCOSE Routine 04/27/2018 11:02 AM EST documented in this encounter Results * (ABNORMAL) POCT Glucose (04/27/2018 2:27 PM EST) Glucose, POC 261(H) 65 - 199 mg/dL [facility] Comment: Supplemental ranges: <140 mg/dL before meals <180 mg/dL all other times of the day Blood specimen (specimen) 04/27/2018 2:27 PM EST 04/27/2018 2:27 PM EST Kaity Fontaine MD POINT OF CARE TEST O RDERABLES Performing Organization Address City/State/[facility] Co de Phone Number [facility] [place] [address] * VS Arteriogram Lower Extremity Vascular Surgery (04/27/2018 2:17 PM EST) Anatomical Region Laterality Modality X-Ray Angiograph y Narrative 05/09/2018 1:17 PM EST Attestation signed by Kaity Fontaine MD at 05/02/2018 4:41 PM I was the attending physician supervising the resident/fellow in the above care and I was present with the resident/fellow for the entire procedure. ?? I was present during the intraservice time as documented by the sedation RN. Kaity Fontaine MD Vascular Surgery Angiography Operative Note Pre-Procedure Diagnosis: 1. ??Critical limb ischemia post fem-AK pop vein graft (2012) 2. ??Recurrent RLE claudication Post-Procedure Diagnosis: 1. ??Critical limb ischemia post fem-AK pop vein graft (2012) 2. ??Recurrent RLE claudication Procedure: 1. Left femoral ??arterial access with ultrasound and fluoroscopic guidance 2. First order selective catheterization of the right common iliac, external iliac, superficial femoral and popliteal arteries with angiography 3. Angioplasty of proximal vein graft / right femoral artery and distal vein graft / right popliteal artery 4. ??Mynx closure of left ASSISTANT PORTFOLIO MANAGER access Surgeon(s): Kostas Bowman Intra-procedural Medications: Versed dose: 4 ??mg Fentanyl dose: 250 mcg Local anesthetic: 8 cc 1% lidocaine Heparin: Yes 7000 Units Protamine: Yes 35 mg Antibiotics: Clindamycin 900 mg IV Fluoro Time: 10.9 min Contrast: 40 mL Sheath Size: ??6 Fr Indications for the procedure: ??Critical limb ischemia, recurrent RLE claudication post fem-AK pop vein graft (2012) Emergent? No Findings: - Dr. Fontaine ??was present for the entirety of this procedure. - Sheath access in left groin - RLE angiography demonstrated: ?Right common femoral artery: ??Widely patent ?Right profunda femoris: Widely patent ?Right superficial femoral artery: Occluded; previously placed SFA stents noted. ??Irregularity at the femoral artery - vein graft anastomosis (approximately 4 cm) and focal high grade stenosis within 2 cm of the anastomosis (80-90%). ?? Short segment stenosis of the distal vein graft immediately above the anastomosis (70%). ?Right popliteal artery: Mid and distal popliteal artery widely patent. ?Right tibial vessels: CHANTAL and REFERRAL MANAGEMENT LIAISON are widely patent. ??Mild irregularity of the peroneal artery. ??Three vessel runoff to the level of the ankle. ??Pedal / tarsal vessels are well opacified. ?? - Intervention: Angioplasty of proximal vein graft / right femoral artery and distal vein graft / right popliteal artery - Completion angiogram demonstrated no significant residual stenosis either the proximal or distal vein graft - Closure device: Mynx Intervention(s): There were 2 vein segments treated 1. The proximal aspect of the vein graft and anastomosis was treated. This was a TASC A lesion with ??a 4 cm segment of irregularity and a focal area of high grade stenosis (80-90%), total treatment length of 4 cm. This was treated with balloon angioplasty, 6mm x 10cm (David) via a ??6 fr Destination sheath. ??The final angioplasty diameter was 6 mm. ??The final result was technically successful. 2. ??The distal aspect of the vein graft and anastomosis was treated. This was a TASC A lesion with ??a 1 cm focal stenosis (70%), total treatment length of 2 cm. This was treated with balloon angioplasty, initially 4mm x 4cm ([place]), then 5mm x 6cm (David) via a ??6 fr Destination sheath. ??The final angioplasty diameter was 5 mm. ??The final result was technically successful. Procedure in detail: The patient was properly identified in the pre-operative holding area. After discussions of the risks and benefits, operative consent was obtained. The patient was brought to the angiography suite and placed in the angio table. The patient was prepped and draped in the usual sterile fashion. A time-out was performed by the attending surgeon confirming the patient, the intended procedure, the side of intervention and equipment needed. Split doses of fentanyl and versed were administered for conscious sedation by the Interventional Radiology nurse ??during continuous monitoring of pulse, blood pressure and oxygen saturation. After injection of local anesthetic, percutaneous access was obtained via the Left femoral ??artery under fluoroscopic guidance using a micro puncture technique. A cope wire was inserted and upsized to a 5 Congolese sheath over a stiff glidewire. ??A 5F Omni flush catheter was then advanced into the infrarenal aorta over the wire. ??The glidewire was advanced into the external iliac artery. Catheter was exchanged for a 5 Fr Berenstein catheter, and catheter was advanced to the external iliac artery. ??Angiography of the right lower extremity was performed, findings as detailed above. ?? Glidewire and Berenstein catheter were used to select the vein graft. ?? The short 5 Fr sheath was exchanged for a 6 Fr Destination sheath (45 cm) over a stiff Amplatz wire, tip positioned within the femoral artery. ??The segment of distal vein graft stenosis was crossed utilizing a straight support catheter ([place] 5 Fr, 135 cm) and 0.018 inch angled tip quick-cross wire after initial attempt using an 0.018 inch Thruway guidewire. ?? The distal vein graft was angioplastied, first 4mm x 4cm (Rena, OTW), then 5mm x 6cm (David OTW). ??A contrast study was performed. ??Then the proximal vein graft was angioplastied, 6mm x 10cm (David, OTW). ??A contrast study was performed. ?? The wire and catheter were removed. ??The Destination sheath was exchanged for a short 6 Fr sheath, and hemostasis was achieved at the left ASSISTANT PORTFOLIO MANAGER access site with Mynx closure and manual compression. ?? Dr. Fontaine was present for the entire procedure. Closure device: Mynx Complications: No Plan: 1. ??Right leg straight and head of bed <30 degrees x 2 hrs. 2. ??ABIs and RLE duplex US in 1mo. ?? Thank you for letting us participate in the care of this patient. For questions regarding this report, please contact the number below. ? Electronically signed by: Kaity Fontaine MD, [facility] ([phone]), at 05/09/2018 1:17 PM Procedure Note Kaity Fontaine MD - 05/09/2018 Attestation signed by Kaity Fontaine MD at 05/02/2018 4:41 PM I was the attending physician supervising the resident/fellow in the abovecare and I was present with the resident/fellow for the entire procedure. I was present during the intraservice time as documented by the sedationRN. Kaity Fontaine MD Vascular Surgery Angiography Operative Note Pre-Procedure Diagnosis: 1. Critical limb ischemia post fem-AK pop vein graft (2012) 2. Recurrent RLE claudication Post-Procedure Diagnosis: 1. Critical limb ischemia post fem-AK pop vein graft (2012) 2. Recurrent RLE claudication Procedure: 1. Left femoral arterial access with ultrasound and fluoroscopicguidance 2. First order selective catheterization of the right common iliac,external iliac, superficial femoral and popliteal arteries with angiography 3. Angioplasty of proximal vein graft / right femoral artery and distalvein graft / right popliteal artery 4. Mynx closure of left ASSISTANT PORTFOLIO MANAGER access Surgeon(s): Kostas Bowman Intra-procedural Medications: Versed dose: 4 mg Fentanyl dose: 250 mcg Local anesthetic: 8 cc 1% lidocaine Heparin: Yes 7000 Units Protamine: Yes 35 mg Antibiotics: Clindamycin 900 mg IV Fluoro Time: 10.9 min Contrast: 40 mL Sheath Size: 6 Fr Indications for the procedure: Critical limb ischemia, recurrent RLE claudication post fem-AK pop vein graft (2012) Emergent? No Findings: - Dr. Fontaine was present for the entirety of this procedure. - Sheath access in left groin - RLE angiography demonstrated: Right common femoral artery: Widely patent Right profunda femoris: Widely patent Right superficial femoral artery: Occluded; previously placedSFA stents noted. Irregularity at the femoral artery - vein graftanastomosis (approximately 4 cm) and focal high grade stenosis within 2 cm of the anastomosis (80-90%). Short segment stenosis of the distal vein graft immediately above the anastomosis (70%). Right popliteal artery: Mid and distal popliteal arterywidely patent. Right tibial vessels: CHANTAL and REFERRAL MANAGEMENT LIAISON are widely patent. Mild irregularity of the peroneal artery. Three vessel runoff to the level ofthe ankle. Pedal / tarsal vessels are well opacified. - Intervention: Angioplasty of proximal vein graft / right femoral arteryand distal vein graft / right popliteal artery - Completion angiogram demonstrated no significant residual stenosiseither the proximal or distal vein graft - Closure device: Mynx Intervention(s): There were 2 vein segments treated 1. The proximal aspect of the vein graft and anastomosis was treated.This was a TASC A lesion with a 4 cm segment of irregularity and a focal area ofhigh grade stenosis (80-90%), total treatment length of 4 cm. This was treatedwith balloon angioplasty, 6mm x 10cm (David) via a 6 fr Destination sheath.The final angioplasty diameter was 6 mm. The final result was technically successful. 2. The distal aspect of the vein graft and anastomosis was treated. Thiswas a TASC A lesion with a 1 cm focal stenosis (70%), total treatment length of2 cm. This was treated with balloon angioplasty, initially 4mm x 4cm (Rena),then 5mm x 6cm (David) via a 6 fr Destination sheath. The finalangioplasty diameter was 5 mm. The final result was technically successful. Procedure in detail: The patient was properly identified in the pre-operative holding area.After discussions of the risks and benefits, operative consent was obtained.The patient was brought to the angiography suite and placed in the angiotable. The patient was prepped and draped in the usual sterile fashion. A time-outwas performed by the attending surgeon confirming the patient, the intended procedure, the side of intervention and equipment needed. Split doses of fentanyl and versed were administered for conscious sedation by the Interventional Radiology nurse during continuous monitoring of pulse,blood pressure and oxygen saturation. After injection of local anesthetic, percutaneous access was obtained viathe Left femoral artery under fluoroscopic guidance using a micro puncture technique. A cope wire was inserted and upsized to a 5 Congolese sheath overa stiff glidewire. A 5F Omni flush catheter was then advanced into theinfrarenal aorta over the wire. The glidewire was advanced into the external iliacartery. Catheter was exchanged for a 5 Fr Berenstein catheter, and catheter wasadvanced to the external iliac artery. Angiography of the right lower extremitywas performed, findings as detailed above. Glidewire and Berenstein catheter were used to select the vein graft.The short 5 Fr sheath was exchanged for a 6 Fr Destination sheath (45 cm) overa stiff Amplatz wire, tip positioned within the femoral artery. The segmentof distal vein graft stenosis was crossed utilizing a straight supportcatheter ([place] 5 Fr, 135 cm) and 0.018 inch angled tip quick-cross wire afterinitial attempt using an 0.018 inch Thruway guidewire. The distal vein graft was angioplastied, first 4mm x 4cm (Rena, OTW),then 5mm x 6cm (David, OTW). A contrast study was performed. Then theproximal vein graft was angioplastied, 6mm x 10cm (David, OTW). A contraststudy was performed. The wire and catheter were removed. The Destination sheath was exchangedfor a short 6 Fr sheath, and hemostasis was achieved at the left ASSISTANT PORTFOLIO MANAGER access sitewith Mynx closure and manual compression. Dr. Fontaine was present for the entire procedure. Closure device: Mynx Complications: No Plan: 1. Right leg straight and head of bed <30 degrees x 2 hrs. 2. ABIs and RLE duplex US in 1mo. Thank you for letting us participate in the care of this patient. Forquestions regarding this report, please contact the number below. Electronically signed by: Kaity Fontaine MD, [facility]([phone]), at 05/09/2018 1:17 PM Kaity Fontaine MD IMG IR ORDERABLES * (ABNORMAL) POCT Glucose (04/27/2018 12:08 PM EST) Glucose, POC 325(H) 65 - 199 mg/dL [facility] Comment: Supplemental ranges: <140 mg/dL before meals <180 mg/dL all other times of the day Blood specimen (specimen) 04/27/2018 12:08 PM EST 04/27/2018 12:08 PM EST Kaity Fontaine MD POINT OF CARE TEST O RDERABLES Performing Organization Address [facility]/ZIP Co de Phone Number [facility] [place] [address] * (ABNORMAL) POCT Glucose (04/27/2018 11:38 AM EST) Glucose, POC 376(H) 65 - 199 mg/dL [facility] Comment: Supplemental ranges: <140 mg/dL before meals <180 mg/dL all other times of the day Blood specimen (specimen) 04/27/2018 11:38 AM EST 04/27/2018 11:38 AM EST Kaity Fontaine MD POINT OF CARE TEST O RDERABLES [facility] [place] [address] * (ABNORMAL) POCT Glucose (04/27/2018 11:02 AM EST) Glucose, POC 371(H) 65 - 199 mg/dL [facility] Comment: Supplemental ranges: <140 mg/dL before meals <180 mg/dL all other times of the day Blood specimen (specimen) 04/27/2018 11:02 AM EST 04/27/2018 11:02 AM EST Kaity Fontaine MD POINT OF CARE TEST O RDERABLES [facility] [place] [address] documented in this encounter Visit Diagnoses Diagnosis PVD (peripheral vascular disease) with claudication Peripheral vascular disease, unspecified documented in this encounter Administered Medications Inactive Administered Medications - up to 3 most recent administrations Medication Order MAR Action Action Date Dose Rate Site clindamycin (CLEOCIN) 900mg in dextrose 5% 50mL 900 mg, Intravenous, ONCE, 1 dose, On Mon04/27/18 at 1115, Administer over 30 Minutes, Give over 30-60 minutes. Do not exceed 30mg/minute. Redose every 6 hours if CrCl is greater than 20. Redose every 6 hours if CrCl is less than 20., Angio/IR (Intra-Procedure), Indication for (Active or Suspected): Prophylaxis New Bag 04/27/2018 12:10 PM EST 900 mg 100 mL/hr fentaNYL 50 mcg/mL multi-dose injection 25-50 mcg, Intravenous, EVERY 5 MIN PRN, Starting on Mon04/27/18 at 1051, Until Mon04/27/18 at 1357, Pain, per unit protocol, - Start dose 50 mcg (reduce dose to 25 mcg if history of sedation sensitivity). - Titration dose 25-50 mcg IV, (based on patient response) every 3 minutes PRN, to maintain procedural pain less than 2 per pain Scale. Maximum dose: 50 mcg/dose, 250 mcg/hour For use in Interventional Radiology (IR) only for procedural sedation with direct provider supervision and verbal order., Angio/IR (Intra-Procedure), Routine Given 04/27/2018 1:50 PM EST 25 mcg Given 04/27/2018 1:40 PM EST 25 mcg Given 04/27/2018 1:35 PM EST 25 mcg heparin (porcine) injection 1,000-10,000 Units 1,000-10,000 Units, Intravenous, ONCE, 1 dose, On Mon04/27/18 at 1115, For use in Interventional Radiology (IR) only for procedural sedation with direct provider supervision and verbal order., Angio/IR (Intra-Procedure), Routine Given 04/27/2018 12:48 PM EST 7,000 U nits iodixanol (VISIPAQUE) 320 mg iodine/mL injection 150 mL 150 mL, Intra-arterial, ONCE PRN, 1 dose, Starting on Mon04/27/18 at 1418, Until Mon04/27/18 at 1419, Per Protocol, Routine Given 04/27/2018 2:19 PM EST 40 mLs labetalol (NORMODYNE,TRANDATE) injection 20 mg 20 mg, Intravenous, EVERY 4 HOURS PRN, Starting on Mon04/27/18 at 1051, Until Mon04/27/18 at 1643, High Blood Pressure, Angio/IR (Intra-Procedure), Routine Given 04/27/2018 12:37 PM EST 10 mg lidocaine (XYLOCAINE) 10 mg/mL (1 %) injection 10 mg 10 mg, Subcutaneous, ONCE, 1 dose, On Mon04/27/18 at 1115, For use in Interventional Radiology (IR) only for procedure with direct provider supervision and verbal order., Angio/IR (Intra-Procedure), Routine Given 04/27/2018 11:15 AM EST 10 mg midazolam (PF) (VERSED) multi-dose injection 0.5-1 mg 0.5-1 mg, Intravenous, EVERY 3 MIN PRN, Starting on Mon04/27/18 at 1051, Until Mon04/27/18 at 1357, Sleep, - Start dose; 1 mg (Reduce dose to 0.5 mg if history of sedation sensitivity). - Titration dose: 0.5 mg - 1 mg (based on patient response) every 3 minutes PRN to obtain RASS score of -3. Maximum dose: 1 mg per dose, 5 mg/hour. For use in Interventional Radiology (IR) only for procedural sedation with direct provider supervision and verbal order., Angio/IR (Intra-Procedure), Routine Given 04/27/2018 1:25 PM EST 0.5 mg Given 04/27/2018 1:00 PM EST 0.5 mg Given 04/27/2018 12:48 PM EST 1 mg protamine injection 10-50 mg 10-50 mg, Intravenous, ONCE, 1 dose, On Mon04/27/18 at 1115, Angio/IR (Intra-Procedure), Routine Given 04/27/2018 1:50 PM EST 35 mg documented in this encounter Care Teams Draw Hand Relationship Specialty Start Date End Date Shirley Yu MD [address] [place] [address] PCP - General 11/19/14 documented as of this encounter
--- OUTSIDE RECORDS SUMMARY | 2023-12-13 18:29 | XMS_ITS | Encounter Summary ---
[place] [address] Care Team Providers Care Geosciences Professor Name Role Phone Shirley Yu MD Primary Care Provider [phone] Encounter Details Date Type Department Care Team (Late Contact Info) Description 05/15/2018 Telephone V[place] [phone] Lisbet Dubois Social History Tobacco Use Types Packs/Day Years [...] encounter Miscellaneous Notes * Telephone Encounter - Lisbet Dubois - 05/15/2018 11:51 AM EST Left message for patient to call back and confirm appointment change for 05/29. Dr. Fontaine has orderedadditional studies and patient needs to come in 30 min earlier for appointment. documented in this encounter Plan of Treatment Upcoming Encounters Date Type Department Care Team (Late Contact Info) Description 12/19/2023 1:00 PM EDT Tech Visit V[place] [phone] Marguerite Macias 12/19/2023 3:00 PM EDT Office [place] [address] Gardenia Golden APRN [facility] DR VASCULAR SURGERY [place], [place] [id number] 01/29/2024 1:[address] [place] [address] César Escobar MD [facility] [place] [address] 01/29/2024 2:30 PM EDT Office [place] [address] César Escobar MD [facility] [place] [address] documented as of this encounter Visit Diagnoses Not on filedocumented in this encounter Care Teams Geosciences Professor Relationship Specialty Start Date End Date Shirley Yu MD [address] [place] [address] PCP - General 11/19/14 documented as of this encounter
--- OUTSIDE RECORDS SUMMARY | 2023-12-13 18:29 | XMS_ITS | Encounter Summary ---
[place] [address] Care Team Providers Care Implementation Manager Name Role Phone Shirley Yu MD Primary Care Provider [phone] Encounter Details Date Type Department Care Team (Late st Contact Info) Description 12/05/2017 Orders Only [place] [address] Tavia Adam RN Intermittent claudication; PAD (peripheral artery disease); Stenosis of left carotid artery Social History Tobacco Use Types Packs/Day Years [...] PM EDT Tech Visit [place] [address] Marguerite Macias 12/19/2023 3:00 PM EDT Office [place] [address] Gardenia Golden, [facility] [place] [address] 01/29/2024 1:[address] [place] [address] César Escobar MD [facility] [place] [address] 01/29/2024 2:30 PM EDT Office [place] [address] César Escobar MD [facility] [place] [address] documented as of this encounter Results * SHEFALI, legs, multiple levels (01/05/2018 1:29 PM EDT) VB Text Report Department: Vascular Surgery Lab Patient: [id number] (JENNIFER SNYDER) CPT: 31975 ICD10: I73.9 Referring Physician: GILES BROWNLEE ?? Indications: Patient with h/o right femoral to above knee popliteal artery bypass graft, ? change in SHEFALI Diabetes mellitus: Yes ICD10 Diagnosis Code: I73.9 Findings: Right ?Pressure (mm Hg) ?? SHEFALI ??Waveform ?TBI ?? Brachial Artery ?169 ? Dorsalis Pedis (Ankle) Artery ?105 ? 0.62 ??Garfield-Biphasic ? Posterior Tibial (Ankle) Artery ??135 ? 0.80 ??Garfield-Biphasic ? Great Toe ?89 ? 0.53 ?? Left ? Pressure (mm Hg) ?? SHEFALI ??Waveform ?TBI ?? Brachial Artery ?166 ? Dorsalis Pedis (Ankle) Artery ?97 ?0.57 ??Garfield-Biphasic ? Posterior Tibial (Ankle) Artery ??97 ?0.57 ??Garfield-Biphasic ? Great Toe ?58 ? 0.34 ?? [...] of Report [facility] 01/05/2018 1:29 PM EDT Giles Brownlee MD VASCULAR ORDERABLES [facility] * Carotid Duplex, Bilateral (01/05/2018 1:29 PM EDT) VB Text Report Department: Vascular Surgery Lab Patient: [id number] (JENNIFER SNYDER) CPT: 91659 ICD10: I65.22 Referring Physician: GILES BROWNLEE ?? Indications: Patient with known carotid [...] 326 ?? 3.70 Electronically Signed by: HUGO CUELLAR on 2018-01-07 05:51:34 PM [facility] VB Text Report End of Report [facility] 01/05/2018 1:29 PM EDT Giles Brownlee MD VASCULAR ORDERABLES [facility] documented in this encounter Visit Diagnoses Diagnosis Intermittent claudication Peripheral vascular disease, unspecified PAD (peripheral artery disease) Peripheral vascular disease, unspecified Stenosis of left carotid artery Occlusion and stenosis of carotid artery without mention of cerebral infarction documented in this encounter Care Teams Implementation Manager Relationship Specialty Start Date End Date Shirley Yu MD [address] [place] [address] PCP - General 11/19/14 documented as of this encounter
--- OUTSIDE RECORDS SUMMARY | 2023-12-13 18:29 | XMS_ITS | Encounter Summary ---
Author Organization [facility] [place] [address] Care Team Providers Care Pattern Vault Clerk Name Role Phone Shirley Yu MD Primary Care Provider [phone] Encounter Details Date Type Department Care Team (Late st Contact Info) Description 04/16/2018 [place] [address] Shirley Colunga MSW Social History Tobacco Use Types Packs/Day Years [...] as of this encounter Progress Notes * Shirley Colunga MSW - 04/16/2018 10:36 AM EST Patient Info (Name, age, dx) Jennifer Snyder Present at Visit: Self 1. Reason for visit: consult with Dr. Escobar 2. Understanding/Adjustment/Coping: Realistic, grounded, coping relatively well. 3. Current living situation: Recently purchased a duplex with her she, she is living on one side. 4. Access to Transportation: No concerns at this time. 5. Substance use: Pt denies use of drugs or alcohol. 6. Patient/Family Mental Health Concerns: Pt denies hx of mental illness 7. Financial Concerns: No specific concerns expressed related to finances. 8. Insurance/Prescription Coverage: No concerns expressed. 9. Legal Concerns: No concerns expressed. 10. Advance Directives: Needed. Provided education and information re Adv Directives and Shared Decision Making. 11. 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 12. Hobbies/Interests: Did not discuss. 13. Hopes/Goals: Will continue to assess. 14. Worries/Stressors: We did not discuss. Summary: Main concerns: Adv Dir Needed. Will follow up. Social support: Denied concerns related to support system Primary support: Reports family and boyfriend are supportive S/P 1. Meet with pt next week in clinic to discuss Adv Dir 2. Continue with psychosocial support/resource assistance as needed/requested. documented in this encounter Plan of Treatment Upcoming Encounters Date Type Department Care Team (Late st Contact Info) Description 12/19/2023 1:00 PM EDT Tech [place] [phone] Marguerite Macias 12/19/2023 3:00 PM EDT Office Visit [place] [address] Gardenia Golden APRN [facility] [place] [address] 01/29/2024 1:[address] [place] [address] César Escobar MD [facility] [place]AC[place] [address] 01/29/2024 2:30 PM EDT Office [place] [address] César Escobar MD [facility] DR [place]AC[place] [address] documented as of this encounter Visit Diagnoses Not on filedocumented in this encounter Care Teams Pattern Vault Clerk Relationship Specialty Start Date End Date Shirley Yu MD [address] [place] [address] PCP - General 11/19/14 documented as of this encounter
--- OUTSIDE RECORDS SUMMARY | 2023-12-13 18:29 | XMS_ITS | Encounter Summary ---
Author Organization [facility] [place] [address] Care Team Providers Care Credentials Specialist Name Role Phone Shirley Yu MD Primary Care Provider [phone] Reason for Visit * Reason Comments Follow-up Encounter Details Date Type Department Care Team (Late st Contact Info) Description 04/23/2018 12:30 PM EST Office [place] [address] César Escobar MD [facility] [place] [address] Multiple lung nodules Social History Tobacco Use [...] Sign Reading Time Taken Comments Blood Pressure 157/57 04/23/2018 12:18 PM EST Pulse 78 04/23/2018 12:18 PM EST Temperature 36.7 ??C (98.1 ??F) 04/23/2018 12:[address] Respiratory Rate 18 04/23/2018 12:18 PM EST Oxygen Saturation 99% 04/23/2018 12:18 PM EST Inhaled Oxygen Concentration - - Weight 94.2 kg (207 lb 9.6 oz) 04/23/2018 12:18 PM EST Height 168.9 cm (5' 6.5) 04/23/2018 12:18 PM ES T Body Mass Index 33.01 04/23/2018 12:18 PM EST documented in this encounter Patient Instructions * Patient Instructions* Mallory Ashford RN - 04/23/2018 12:30 PM EST Thank you for visiting Dr. Escobar in clinic 04/23/18. would like to see you back in clinic in 2-3 weeks,we will coordinate this with your Vascular Surgery appointment . You will receive a letter in the mail to schedule this appointment. Dr Escobar will also be presenting your case at our Tumor Board meeting 04/24/18. ?? Exercise each day for 30 minutes [...] documented in this encounter Progress Notes * Mallory Artis PA - 04/23/2018 12:30 PM EST Thoracic Surgery Attending Outpatient Follow Up Note César Escobar MD [place] [address] FAX: Chief complaint: continued evaluation of pulmonary nodules HPI: Jennifer Snyder is a 57 y.o. female with PMHx PAD, COPD, HTN, HL, DM, MANISH with CPAP, distant h/o R arm melanoma with negative axillary LND presenting today for continued evaluation of slightly enlarging LLL and possibly new RLL nodules. Patient states she has no interval changes to her healthsince her last visit. She does note that she has lost 5lbs since her last visit. She continues to deny any pulmonary symptoms along with f/c/n/v/SOB/CP. She is scheduled to have RLE angiogram on 04/27/18. Medications: Current Outpatient Medications on File Prior [...] Diabetic Supplies, Miscellan. Misc Form faxed to [employer] for pump supplies. 100 each 12 ??? [...] on file prior to visit. Physical Exam: There were no vitals taken for this visit. General Appearance: Alert, cooperative, no distress, appears stated age Nk: Supple, symmetrical, trachea midline, no adenopathy Lungs: Clear to auscultation bilaterally, respirations unlabored, no wheezes, crackles or ronchi. Heart: Regular rate and rhythm, S1 and S2 normal, 2/6 systolic murmur auscultated at LUSB, no rub or gallop Abdomen: Soft, non-tender, bowel sounds active all four quadrants, no masses, no organomegaly Extremities: Extremities normal, atraumatic, no cyanosis or edema Imaging: I have independently visualized the following studies: CT Chest (04/23/18): final read pending My read: RLL nodule and 2 LLL nodules visualized, many GGOs seen throughout lungs PFTs (04/23/18) pending Assessment: Jennifer Snyder is a 57 y.o. female with PMH copd and remote h/o melanoma presenting with RLL and LLL nodules. Patient continues to deny pulmonary symptoms. Compared nodules on today's CT scan to [place] CT scan from 09/27/16. RLL nodule appears to have increased slightly in size, pending radiology read. Patient expressed that she would like these nodules to be removed. Recommend proceeding with vascular interventions prior to resection of lung nodules. Plan: 1. Recommend proceeding with angiogram on 04/27 and any further vascular treatments indicated 2. Present patient's case at [facility] 3. RTC in 2-3 weeks after angiogram to proceed with resection of lung nodules, if angiogram on hows further vascular intervention is needed we will plan to follow up with patient after she has recovered from said interventions with repeat Chest CT in 3 months. 4. Call with any questions GENRTY Nogueira 04/23/18 Thoracic Surgery [facility] * César Escobar MD - 04/23/2018 12:30 PM EST Thoracic surgery follow-up visit I saw and examined Ms. Snyder with GENTRY Stone, and agree with her findings, assessment and plan. In brief: Chief complaint: Pulmonary nodules History of present illness: Ms. Snyder is a 57-year-old woman with a history of tobacco use and COPD as well as a right arm melanoma referred to me for bilateral lower lobe nodules. She comes in today to discuss the results of new imaging studies and review her outside films. She has no new complaints. Current Outpatient Medications [...] Diabetic Supplies, Miscellan. Misc Form faxed to [employer] for pump supplies. 100 each 12 ??? [...] medications on file prior to visit. BP 157/57 (Patient Position: Sitting) Pulse 78 Temp 36.7 ??C (98.1 ??F) (Temporal) Resp 18 Ht 168.9 cm (5' 6.5) Wt 94.2 kg (207 lb 9.6 oz) SpO2 99% BMI 33.01 kg/m?? Physical exam: She appears well today. She is alert, oriented and in no distress. Her lungs are clear, her heart is regular and her abdomen is nontender nondistended. Imaging: A chest CT without contrast was obtained today. This demonstrates growth in the right lower lobe nodule, and stability of the left lower lobe nodule. In addition there are scattered groundglass nodules suggestive of pneumonitis. Assessment: 57-year-old woman with history of COPD and a slowly enlarging right lower lobe nodule as well as a small stable left lower lobe nodule. I advised the patient that the slow growth of thesenodules and the rounded appearance favored a benign or indolent etiology, but that surgical resection would be straightforward. The patient is scheduled to undergo an angiogram later this week to determine the patency of her lower extremity bypass. In the event that an open vascular procedure is required, I would defer resection of her nodules for the time being. In the event that only angiographic intervention is necessary, we could begin with a thoracoscopic wedge resection of the right lowerlobe nodule in the next few weeks. Plan: Complete angiogram on April 27, possible resection of right lower lobe lung nodule thereafter CÉSAR ESCOBAR MD documented in this encounter Plan of Treatment Upcoming Encounters Date Type Department Care Team (Late st Contact Info) Description 12/19/2023 1:00 PM EDT Tech Visit [place] [phone] Marguerite Macias 12/19/2023 3:00 PM EDT Office [place] [phone] Gardenia Golden APRN [facility] [place] [address] 01/29/2024 1:[address] [place] [place] [phone] César Escobar MD [facility] [place] [address] 01/29/2024 2:30 PM EDT Office [place] [phone] César Escobar MD [facility] [place] [address] documented as of this encounter Visit Diagnoses Diagnosis Multiple lung nodules Other nonspecific abnormal finding of lung field documented in this encounter Care Teams Credentials Specialist Relationship Specialty Start Date End Date Shirley Yu MD [address] [place] [address] PCP - General 11/19/14 documented as of this encounter
--- OUTSIDE RECORDS SUMMARY | 2023-12-13 18:29 | XMS_ITS | Encounter Summary ---
[place] [address] Care Team Providers Care Funeral Assistant Name Role Phone Shirley Yu MD Primary Care Provider [phone] Encounter Details Date Type Department Care Team (Late st Contact Info) Description 04/16/2018 Telephone [place] [phone] Sumi Andrade Social History Tobacco Use Types Packs/Day Years [...] PM EDT Tech Visit [place] [address] Marguerite Macias 12/19/2023 3:00 PM EDT Office Visit [place] [phone] Gardenia Golden, HEALTH CARE CONSULTANT [facility] [place] [address] 01/29/2024 1:[address] [place] [phone] César Escobar MD [facility] [place] [address] 01/29/2024 2:30 PM EDT Office Visit [place] [phone] César Escobar MD [facility] [place] [address] documented as of this encounter Visit Diagnoses Not on filedocumented in this encounter Care Teams Funeral Assistant Relationship Specialty Start Date End Date Shirley Yu MD [address] [place] [address] PCP - General 11/19/14 documented as of this encounter
--- OUTSIDE RECORDS SUMMARY | 2023-12-13 18:29 | XMS_ITS | Encounter Summary ---
Author Organization [facility] [place] [address] Care Team Providers Care Home Economist Name Role Phone Shirley Yu MD Primary Care Provider Reason for Visit * Consultation (Routine) - Specialty Diagnoses / Procedures Referred By Contac t Referred To Contact Vascular Surgery Diagnoses peripheral vascular nos Shirley Yu MD [address] [place] [address] [facility] [address] [place] [address] Referral ID Status Reason Start Date Expiration Date V isits Requested Visits Authorized [id number] Consult, Test & Treat [facility] 12/04/2017 12/04/2018 6 6 Encounter Details Date Type Department Care Team (Late st Contact Info) Description 01/05/2018 3:30 PM EDT Office [place] [address] Jacoby Polanco, LADAR[facility] [place] [address] S/P bypass graft of extremity Social History [...] Sign Reading Time Taken Comments Blood Pressure 150/70 01/05/2018 2:45 PM EDT Pulse 83 01/05/2018 2:44 PM EDT Temperature - - Respiratory Rate - - Oxygen Saturation 95% 01/05/2018 2:44 PM EDT Inhaled Oxygen Concentration - - Weight - - Height 170.2 cm (5' 7) 01/05/2018 2:44 PM EDT r eported Body Mass Index - - documented in this encounter Progress Notes * Jacoby Polanco, SALES AND MARKETING INTERN - 01/05/2018 3:30 PM EDT Jennifer Snyder is a 57-year-old diabetic woman who is being followed for both carotid and lower extremity arterial disease. She is status post left carotid endarterectomy in 2000, and developed recurrent stenosis that has been stable at approximately 60%. She has little right carotid stenosis. She is status post left iliac stenting in 2005, and right common femoral to above-knee popliteal vein graft in 2008. Because the vein graft was small, we considered it disadvantaged, and therefore placed her on Coumadin. This has recently been changed to Pradaxa. She developed a mid graft stenosis that has been followed, with a peak systolic velocity approximately 330 cm/s which is not significantly changed over the past 2 years. 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 Denies changes in walking distance. Mild claudication B L>R. Denies rest pain,tissue loss, SOB, chest pain, TIA's Cr increasing 1.8 with GFR 28. Has appointment in nephrology 01/25/18. PE General: NAD, appears well Neuro: Alert and oriented, motor sensory grossly intact Lungs: CTA Heart: RRR Abd: Soft, NT, ND, no palpable pulsatile masses large Extremity - Danielson, warm, no ulceration, brisk capillary refill, no edema Vascular: R L Carotid 2/2 bruit (n) 2/2 bruit (n) Radial 2/2 2/2 Femoral -/2 2/2 Popliteal -/2 -/2 DP 1/2 -/2 PT -/2 -/2 SHEFALI's Right ?Pressure (mm Hg) ?? SHEFALI ??Waveform ?TBI ?? Brachial Artery ?169 ? Dorsalis Pedis (Ankle) Artery ?105 ? 0.62 ??Juniata-Biphasic ? Posterior Tibial (Ankle) Artery ??135 ? 0.80 ??Juniata-Biphasic ? Great Toe ?89 ? 0.53 ?? Left ? Pressure (mm Hg) ?? SHEFALI ??Waveform ?TBI ?? Brachial Artery ?166 ? Dorsalis Pedis (Ankle) Artery ?97 ?0.57 ??Juniata- Biphasic ? Posterior Tibial (Ankle) Artery ??97 ?0.57 ??Juniata-Biphasic ? Great Toe ?58 ? 0.34 ?? [...] to the previous exam performed o 08/15/2016. Duplex Right ? PSV (cm/s) ??EDV ??Location ? [...] which are consistent with a >50% stenosis. Significant progression of the proximal graft stenosis with no identifiable change through the remainder of the graft when compared to the previous exam performed on 08/15/2016. Carotid duplex ICA Proximal, Right ?PSV (cm/s): 92 ?EDV (cm/s): 32 ?ICA/CCA: 1.7 ?Plaque Structure: Echogenic ?Plaque Surface: Irregular ?%Stenosis: <15% ICA Distal, Right ?PSV (cm/s): 59 ?EDV (cm/s): 22 ?ICA/CCA: 1.1 CCA Distal, Right ?PSV (cm/s): 53 ?EDV (cm/s): 13 ?%Stenosis: <50% CCA Proximal, Right ?PSV (cm/s): 105 ?EDV (cm/s): 0 External Carotid Artery, Right ?PSV (cm/s): 89 ?EDV (cm/s): 11 ?%Stenosis: <50% Vertebral, Right ?PSV (cm/s): 53 ?EDV (cm/s): 18 ?Direction of Flow: Antegrade ICA Proximal, Left ?PSV (cm/s): 326 ?EDV (cm/s): 87 ?ICA/CCA: 3.7 ?Plaque Structure: Echogenic ?Plaque Surface: Irregular ?%Stenosis: 50-69% ICA Distal, Left ?PSV (cm/s): 71 ?EDV (cm/s): 26 ?ICA/CCA: 0.8 CCA Distal, Left ?PSV (cm/s): 89 ?EDV (cm/s): 26 ?%Stenosis: <50% CCA Proximal, Left ?PSV (cm/s): 76 ?EDV (cm/s): 18 External Carotid Artery, Left ?PSV (cm/s): 219 ?EDV (cm/s): 18 ?%Stenosis: >50% Vertebral, Left ?PSV (cm/s): 66 ?EDV (cm/s): 24 ?Direction of Flow: Antegrade Interpretation: RIGHT: There is [...] normal antegrade Doppler waveforms and velocities bilaterally. Assessment/Plan: 57 yo female IDDM, CRF s/p B CEA's, left iliac stenting in 2005, and right common femoral to above-knee popliteal vein graft in 2008. 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 RIGHT: Patent common femoral to above knee popliteal artery bypass graft. There are elevated velocities at the proximal anastomosis (PSV 385 cm/s;previously 369 cm/s) and a focal stenosis in the proximal graft (PSV 504 cm/s, 3.8 x step-up; previously PSV 340 cm/s, 2.8 x step-up) which are consistent with a >50% stenosis. Signifi cant progression of the proximal graft stenosis with no identifiable change through the remainder of the graft when compared to the previous exam performed on 08/15/2016. Carotid duplex stable WILIAM <15% stenosis, LICA stable 50-69% stenosis. Cr 1.8 GFR 28 seeing Nephrology 01/25/18, Visit discussed with Dr Caballero regarding increase stenosis in proximal RLE bypass. Unable to safely preform angio at this time related to CRF. She is on Pradaxa for graft patency which she should continue. Will plan f/u with SHEFALI and graft duplex in 2-3 months to see if progression, by then her CRF will be evaluated and treated and will reassess if her renal status with tolerate IV contrast. documented in this encounter Plan of Treatment Upcoming Encounters Date Type Department Care Team (Late st Contact Info) Description 12/19/2023 1:00 PM EDT Tech Visit [place] [address] Marguerite Macias 12/19/2023 3:00 PM EDT Office [place] [address] Gardenia Golden APRN [facility] [place] [address] 01/29/2024 1:[address] [place] [address] César Escobar MD [facility] [place] [address] 01/29/2024 2:30 PM EDT Office [place] [address] César Escobar MD [facility] [place] [address] documented as of this encounter Results * Arterial Duplex Leg, Unil (03/14/2018 12:30 PM EST) VB Text Report Department: Vascular Surgery Lab Patient: [id number] (JENNIFER SNYDER) CPT: 60497 ICD10: Z95.828 Referring Physician: JACOBY POLANCO APRN ?? Indications: f/u stenosis of R proximal anastomosis [...] Knee ? 70 ?9 ?? Outflow Artery (Graft) ?105 ?? 24 ?? Interpretation: Right- Patent LOGGING TRUCK DRIVER inflow with a PSV of 500 cm/s [...] Patient feels that the leg is getting worse. Electronically Signed by: JAXON MONTAÑO MD on 2018-03-15 07:33:11 AM VASCUBASE VB Text Report End of Report VASCU[facility] 03/14/2018 12:3 0 PM EST Jacoby Polanco APRN VASCULAR ORDERABLE S VASCUBASE * SHEFALI, legs, multiple levels (03/14/2018 12:30 PM EST) VB Text Report Department: Vascular Surgery Lab Patient: [id number] (JENNIFER SNYDER) CPT: 73609 ICD10: Z95.828 Referring Physician: JACOBY POLANCO APRN ?? Indications: f/u of > 50% stenosis in proximal R fem-pop bypass graft Diabetes mellitus: no ICD10 Diagnosis Code: Z95.828 Findings: Right ?Pressure (mm Hg) ?? [...] ---- Current ? 0.46(-.11) 0.46(-.11) 0.31(-.03) ---- Electronically Signed by: JAXON MONTAÑO MD on 2018-03-15 07:47:16 AM VASCU[facility] VB Text Report End of Report VASCU[facility] 03/14/2018 12:3 0 PM EST Jacoby Polanco SALES AND MARKETING INTERN VASCULAR ORDERABLE S [facility]CU[facility] documented in this encounter Visit Diagnoses Diagnosis S/P bypass graft of extremity Other postprocedural status documented in this encounter Care Teams Home Economist Relationship Specialty Start Date End Date Shirley Yu MD [address] [place] [address] PCP - General 11/19/14 documented as of this encounter
--- OUTSIDE RECORDS SUMMARY | 2023-12-13 18:29 | XMS_ITS | Encounter Summary ---
Author Organization [facility] [place] [address] Care Team Providers Care Mailing Jogger Name Role Phone Shirley Yu MD Primary Care Provider [phone] Reason for Visit * Reason Comments Wound Check F/U POST ANGIOR FEM AK POP VEIN GRAFT Encounter Details Date Type Department Care Team (Latest Contact Info) Description 05/29/2018 11:00 AM EST Office Visit [place] [address] Jaxon Fontaine MD [facility] [place] [address] Atherosclerosis of autologous vein bypass graft of [...] Sign Reading Time Taken Comments Blood Pressure 142/47 05/29/2018 11:13 AM EST Pulse 76 05/29/2018 11:13 AM EST Temperature - - Respiratory Rate 18 05/29/2018 11:13 AM EST Oxygen Saturation - - Inhaled Oxygen Concentration - - Weight 97.3 kg (214 lb 6.4 oz) 05/29/2018 11:13 AM EST Height 170.2 cm (5' 7) 05/29/2018 11:13 AM EST Body Mass Index 33.58 05/29/2018 11:13 AM EST documented in this encounter Progress Notes * Jaxon Fontaine MD - 05/29/2018 11:00 AM EST Images from the original note were not included. Vascular Surgery Clinic Visit May 29, 2018 CC: Patient is a 57 y.o. female who is here for follow up of PVD. 2000 L CEA (Dr Fong) 2004 R CEA (Dr Avendano) ?? 2007 R fem-AK-pop bypass with GSV (Dr Avendano) 2012 L EIA stent (8x60 SE p7), RLE vein graft OVEN TENDER BAGELS (Dr Avendano) 04/27/18 R RESIDENTIAL LEASING AGENT/proximal graft and distal graft/pop OVEN TENDER BAGELS (6mm and 5mm balloons) ?? Presents for scheduled follow up visit. Reports resolution of RLE claudication symptoms. Denies any rest pain or non-healing wounds. Denies any symptoms in LLE. ?? ROS is negative for history of CAD, WI, CP, or SOB. No history suggestive of stroke, TIA, or amaurosis fugax. Has DM, on insulin pump. Is a past smoker, having quit in 2014. ?? PMH: HTN, HLD, DM, hyperthyroidism, GINGER/BSO '02 All: sulfa, PCN Meds include: asa, pradaxa, pletal, coreg, losartan, zocor, protonix, synthroid, insulin, celexa ?? Tob: quit 2014 FHx: neg for coagulopathy ?? Physical Exam: On exam, she is in NAD, RRR, CTA B, Abd soft/NT/ND. Left groin access site without hematoma. Palpable pedal pulses on the right. No open lesions on either foot. Labs: Geodesy Teacher (04/23/18): 1.59 Lipids (10/14/14): TC 160, HDL 78 HbA1C (01/25/18): 8.4 Imaging studies: I have personally reviewed the following imaging studies. RLE graft duplex (05/29/18): Findings: Right ? PSV (cm/s) ??EDV ??Location ? Inflow Artery ?446 ?? 25 ??Common Femoral ?? Inflow Anastomosis ? 230 ?0 ??Common Femoral ?? Proximal Graft ?98 ?? 10 ? Mid Thigh (Graft) ? 66 ?0 ? Low Thigh (Graft) ? 68 ?0 ? Distal Graft ?48 ?4 ? Outflow Anastomosis ? 73 ?4 ??Popliteal ? Outflow Artery (Graft) ? 112 ?0 ??Popliteal ? SHEFALI (05/29/18): 0.95/0.62 A/P: 57yo female s/p RLE vein graft OVEN TENDER BAGELS for graft salvage with resolution of claudication symptoms and palpable pedal pulses. She does still have high velocity in the inflow R RESIDENTIAL LEASING AGENT where there appearsto be a dissection. May need open revision at some point. For now, she is waiting to have resectionof RLL nodule with Dr Escobar. Will see her back in 3 months for follow up. -con't asa, pradaxa and statin. OK to hold pradaxa for upcoming lung surgery. -con't smoking cessation -regular walking regimen -f/u 3mo with RLE graft duplex and SHEFALI Jaxon Fontaine MD documented in this encounter Plan of Treatment Upcoming Encounters Date Type Department Care Team (Late st Contact Info) Description 12/19/2023 1:00 PM EDT Tech [place] [address] GeraldCarmen padronguille Gonzalez 12/19/2023 3:00 PM EDT Office Visit [place] [address] Gardenia Golden APRN [facility] [place] [address] 01/29/2024 1:[address] [place] [address] César Escobar MD [facility] [place] [address] 01/29/2024 2:30 PM EDT Office Visit [place] [address] César Escobar MD [facility] [place] [address] documented as of this encounter Results * Unilat Bypass Graft Assess (08/17/2018 1:39 PM EDT) Pathologist [facility] Text Report Department: Vascular Surgery Lab Patient: [id number] (JENNIFER SNYDER) CPT: 00054 ICD10: I70.411 Referring Physician: JAXON FONTAINE MD [...] ORDERABLES VASCUBASE * SHEFALI, legs, multiple levels (08/17/2018 1:39 PM EDT) VB Text Report Department: Vascular Surgery Lab Patient: [id number] (JENNIFER SNYDER) CPT: 11899 ICD10: I70.411 Referring Physician: JAXON FONTAINE MD ?? Phone: Indications: ??F/U PAD, s/p angioplasty R RESIDENTIAL LEASING AGENT-AK POP BPG Diabetes mellitus: Yes ICD10 Diagnosis [...] Dorsalis Pedis (Ankle) Artery ?102 ? 0.59 ??Dooly-Biphasic ? Posterior Tibial (Ankle) Artery ??102 ? 0.59 ??Dooly-Biphasic ? Great Toe ?70 ? 0.40 ?? Interpretation: RIGHT: Mild lower extremity arterial occlusive disease. No significant change in the ABIs when compared to most recent post-procedure exam done 05/29/18. 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
--- OUTSIDE RECORDS SUMMARY | 2023-12-13 18:29 | XMS_ITS | Encounter Summary ---
Author Organization [facility] Address [facility] [place] [address] Care Team Providers Care Code Number Stamper Name Role Phone Shirley Yu MD Primary Care Provider [phone] Encounter Details Date Type Department Care Team (Latest Contact Info) Description 04/24/2018 Multidisciplinary Ca re Committee [place] [address] César Escobar MD [facility] [place] [address] Social History Tobacco Use Types Packs/Day Years [...] as of this encounter Progress Notes * Mariia Lane - 04/24/2018 11:59 PM EST Thoracic - Tumor Board Note Date Presented: 04/24/2018 Presenting Physician: Momo Escobar Diagnosis/Tumor Site: Bilateral lower lobe lung nodules Is this Metastatic Disease: NA Synopsis of History/HPI: 57-year-old woman with history of tobacco use and COPD with bilateral lower lobe lung nodules noted on a CT angiogram for claudication. The nodules were present had a previous CT in 2017 this at the time of a COPD exacerbation. The right lower lobe nodule is somewhat enlarged. Imaging: Recent CT was reviewed. There are bilateral ovoid lower lobe nodules each measuring about 1 cm. 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 Pathology/Histology: None yet Stage: Not applicable Clinical Data (Exams, Labs, etc.): Not applicable Molecular Pathology Results: Not applicable Clinical Trial Availability: Not applicable Options Discussed: Resection versus continued observation Recommendations: Complete vascular workup with angiogram later this week; 3- month observation of lung nodules followed by thoracoscopic resection of right lower lobe nodule if still present DISCLAIMER: The patient was discussed and the tumor board made recommendations but it is ultimatelyup to the treatment provider(s) and the patient to determine the patient???s care. documented in this encounter Plan of Treatment Upcoming Encounters Date Type Department Care Team (Late st Contact Info) Description 12/19/2023 1:00 PM EDT Tech Visit [place] [address] Marguerite Macias 12/19/2023 3:00 PM EDT Office [place] [address] Gardenia Golden APRN [facility] [place] [address] 01/29/2024 1:[address] [place] [phone] César Escobar MD [facility] [place] [address] 01/29/2024 2:30 PM EDT Office [place] [address] César Escobar MD [facility] [place] [address] documented as of this encounter Visit Diagnoses Not on filedocumented in this encounter Care Teams Code Number Stamper Relationship Specialty Start Date End Date Shirley Yu MD [address] [place] [address] PCP - General 11/19/14 documented as of this encounter
--- OUTSIDE RECORDS SUMMARY | 2023-12-13 18:29 | XMS_ITS | Encounter Summary ---
Author Organization [place] [address] Care Team Providers Care Flat Bed Operator Name Role Phone Shirley Yu MD Primary Care Provider [phone] Reason for Visit * Reason Comments Medication Refill Encounter Details Date Type Department Care Team (Late Contact Info) Description 03/13/2018 [place] [address] Lluvia Oropeza DRAFTING SUPERVISOR [facility] [place] [address] Social History Tobacco Use Types Packs/Day Years [...] PM EDT Tech Visit [place] [address] Marguerite Macias 12/19/2023 3:00 PM EDT Office [place] [address] Gardenia Golden APRN [facility] [place] [address] 01/29/2024 1:[address] [place] [address] César Escobar MD [facility] [place] [address] 01/29/2024 2:30 PM EDT Office [place] [phone] César Escobar MD [facility] [place] [address] documented as of this encounter Visit Diagnoses Not on filedocumented in this encounter Care Teams Flat Bed Operator Relationship Specialty Start Date End Date Shirley Yu MD [address] [place] [address] PCP - General 11/19/14 documented as of this encounter
--- OUTSIDE RECORDS SUMMARY | 2023-12-13 18:29 | XMS_ITS | Encounter Summary ---
Author Organization [facility] Address [facility] [place] [address] Care Team Providers Care Engagement Specialist Name Role Phone Shirley Yu MD Primary Care Provider [phone] Reason for Referral * Diagnostic Test (Routine) - Closed Specialty Diagnoses / Procedures Referred By Contac t Referred To Contact Radiology Diagnoses PVD (peripheral vascular disease) with claudication Procedures VS Arteriogram Lower Extremity Vascular Surgery [facility] [address] [place] [address] [facility] [place] [address] Referral ID Status Reason Start Date Expiration Date V isits Requested Visits Authorized [id number] Closed Specialty Service Requested 03/20/2018 03/20/2019 1 1 * Consultation (Routine) - Closed Specialty Diagnoses / Procedures Referred By Dominik t Referred To Contact Thoracic Surgery Diagnoses PVD (peripheral vascular disease) with claudication Kaity Fontaine MD [facility] [place] [address] Céasr Escobar MD [facility] [place] [address] Referral ID Status Reason Start Date Expiration Date V isits Requested Visits Authorized [id number] Closed Consult, Test & Treat 03/20/2018 03/20/2019 1 1 Encounter Details Date Type Department Care Team (Late st Contact Info) Description 03/20/2018 Orders [place] [address] Tavia Adam RN PVD (peripheral [...] EDT Tech Visit [place] [address] Marguerite Macias 12/19/2023 3:00 PM EDT Office [place] [address] Gardenia Golden APRN [facility] [place] [place] [address] 01/29/2024 1:[address] [place] [address] César Escobar MD [facility] [place] [address] 01/29/2024 2:30 PM EDT Office [place] [address] César Escobar MD [facility] [address] THORACIC SURGERY [place], [place] [address] Scheduled Referrals Name Type Priority Associated Diagnoses Orde r Schedule Referral to Thoracic Surgery Outpatient Referral Routine PVD (peripheral vascular disease) with claudication Ordered: 03/20/2018 documented as of this encounter Results * VS Arteriogram Lower Extremity Vascular Surgery (04/27/2018 2:17 PM EST) Anatomical Region Laterality Modality X-Ray Angiograph y Narrative 05/09/2018 1:17 PM EST Attestation signed by Kaity Fontiane MD at 05/02/2018 4:41 PM I was [...] popliteal artery 4. ??Mynx closure of left AUDIO OPERATOR access Surgeon(s): Kostas Bowman Intra-procedural Medications: Versed [...] widely patent. ?Right tibial vessels: CHANTAL and METAL SPRAYER MACHINED PARTS are widely patent. ??Mild irregularity of the [...] with balloon angioplasty, initially 4mm x 4cm ([place]), then 5mm x 6cm (David) via a [...] was inserted and upsized to a 5 [place] sheath over a stiff glidewire. ??A 5F [...] was crossed utilizing a straight support catheter ([employer] 5 Fr, 135 cm) and 0.018 inch angled tip quick-cross wire after initial attempt using an 0.018 inch [employer] guidewire. ?? The distal vein graft was angioplastied, first 4mm x 4cm (Rena, OTW), then 5mm x 6cm (David, OTW). ??A contrast study was performed. ??Then the proximal vein graft was angioplastied, 6mm x 10cm (David, OTW). ??A contrast study was performed. ?? The wire and catheter were removed. ??The Destination sheath was exchanged for a short 6 Fr sheath, and hemostasis was achieved at the left AUDIO OPERATOR access site with Mynx closure and manual [...] Electronically signed by: Kaity Fontaine MD, [facility] ([phone]), at 05/09/2018 1:17 PM Procedure Note Kaity [...] popliteal artery 4. Mynx closure of left AUDIO OPERATOR access Surgeon(s): Kostas Bowman Intra-procedural Medications: Versed [...] arterywidely patent. Right tibial vessels: CHANTAL and METAL SPRAYER MACHINED PARTS are widely patent. Mild irregularity of the [...] with balloon angioplasty, initially 4mm x 4cm ([place]),then 5mm x 6cm (David) via a 6 [...] was inserted and upsized to a 5 [place] sheath overa stiff glidewire. A 5F Omni [...] stenosis was crossed utilizing a straight supportcatheter ([place] 5 Fr, 135 cm) and 0.018 inch [...] and hemostasis was achieved at the left AUDIO OPERATOR access sitewith Mynx closure and manual compression. [...] Electronically signed by: Kaity Fontaine MD, [facility]([phone]), at 05/09/2018 1:17 PM Kaity Fontaine MD IM IR ORDERABLES * (ABNORMAL) Creatinine (04/23/2018 9:38 AM EST) Creatinine 1.59(H) 0.70 - 1.20 mg/dL [facility] Est Glomerular Filtration Rate 35(L) >=60 mL/min/1.7 3 m?? [facility] Comment: The eGFR was calculated using the CKD-EPI equation. As with all creatinine based estimates of kidney function, eGFR values calculated with the CKD-EPI equation are not accurate in patients with acute kidney failure, extremes of body mass or the acutely ill. [email or web address] CLAREMOREnkf eGFR 41(L) >=60 mL/min/1.7 3 m?? [facility] Comment: The eGFR was calculated using the CKD-EPI equation. As with all creatinine based estimates of kidney function, eGFR values calculated with the CKD-EPI equation are not accurate in patients with acute kidney failure, extremes of body mass or the acutely ill. [email or web address]/[facility]nkf Blood specimen (specimen) 04/23/2018 9:38 AM EST 04/23/2018 9:48 AM EST Narrative Resulting Agency Comment Spec In Lab Kaity Fontaine MD CHEMISTRY ORDERABLES [facility] [place] [address] documented in this encounter Visit Diagnoses Diagnosis PVD (peripheral vascular disease) with claudication Peripheral vascular disease, unspecified PVD (peripheral vascular disease) with claudication Peripheral vascular disease, unspecified documented in this encounter Care Teams Engagement Specialist Relationship Specialty Start Date End Date Shirley Yu MD [address] [place] [address] PCP - General 11/19/14 documented as of this encounter
--- OUTSIDE RECORDS SUMMARY | 2023-12-13 18:29 | XMS_ITS | Encounter Summary ---
[place] [address] Care Team Providers Care Parking Garage Manager Name Role Phone Shirley Yu MD Primary Care Provider [phone] Encounter Details Date Type Department Care Team (Late st Contact Info) Description 05/23/2018 Telephone [place] [address] Sumi Andrade Social History Tobacco Use Types [...] encounter Miscellaneous Notes * Telephone Encounter - Sumi Andrade - 05/23/2018 2:42 PM EST Call made, message left to return call. Needs follow up with Dr. Escobar no imaging needed. documented in this encounter Plan of Treatment Upcoming Encounters Date Type Department Care Team (Late st Contact Info) Description 12/19/2023 1:00 PM EDT Tech [place] [address] Marguerite Macias 12/19/2023 3:00 PM EDT Office Visit Vascular Surgery at [place] [phone] Gardenia Golden APRN [facility] [place] [address] 01/29/2024 1:[address] [place] [address] César Escobar MD [facility] [place] [address] 01/29/2024 2:30 PM EDT Office [place] [address] César Escobar MD [facility] [place] [address] documented as of this encounter Visit Diagnoses Not on filedocumented in this encounter Care Teams Parking Garage Manager Relationship Specialty Start Date End Date Shirley Yu MD [address] [place] [address] PCP - General 11/19/14 documented as of this encounter
--- OUTSIDE RECORDS SUMMARY | 2023-12-13 18:29 | XMS_ITS | Encounter Summary ---
Author Organization [facility] [place] [address] Care Team Providers Care Regulation Supervisor Name Role Phone Shirley Yu MD Primary Care Provider [phone] Reason for Referral * Diagnostic Test (Routine) - Closed Specialty Diagnoses / Procedures Referred By Dominik t Referred To Contact Radiology Diagnoses PVD (peripheral vascular disease) with claudication Procedures CT Angiogram Aorta Lower Extremity Runoff Kaity Fontaine MD [facility] [place] [address] [facility] [place] [address] Referral ID Status Reason Start Date Expiration Date V isits Requested Visits Authorized [id number] Closed Specialty Service Requested 03/14/2018 03/14/2019 1 1 Reason for Visit * Diagnostic Test (Routine) - Closed Specialty Diagnoses / Procedures Referred By Dominik t Referred To Contact Radiology Diagnoses PVD (peripheral vascular disease) with claudication Procedures CT Angiogram Aorta Lower Extremity Runoff Kaity Fontaine MD [facility] [place] [address] [facility] [place] [address] Referral ID Status Reason Start Date Expiration Date V isits Requested Visits Authorized [id number] Closed Specialty Service Requested 03/14/2018 03/14/2019 1 1 Encounter Details Date Type Department Care Team (Latest Contact Info) Description 03/19/2018 8:44 AM EST - 03/19/2018 11:59 PM EST Hospital Encounter CT Scan at [facility] [place] [address] Kaity Fontaine MD [facility] [place] [address] PVD (peripheral vascular disease) with claudication Discharge [...] TWICE A DAY 98 07/26/2016 Diabetic Supplies, [employer] Misc Form faxed to [email or web address] for pump supplies. 100 each 12 03/23/2015 losartan (COZAAR) 100 mg Tablet Take 50 mg by mouth daily. 08/11/2014 aspirin 81 mg EC tablet Take 81 mg by mouth daily. insulin lispro (HUMALOG) 100 unit/mL injection Inject 55-60 Units subcutaneously continuous. Via insulin pump insulin lispro (HumaLOG) Solution 24/7 01/07/2016 levothyroxine (SYNTHROID) 125 mcg Tablet TAKE ONE [...] of this encounter Progress Notes * Yue Kevin RN - 03/19/2018 9:20 AM EST Vascular and Interventional Radiology Sodium Bicarbonate Protocol Administration Notes Name: Jennifer Snyder Age: 57 y.o. Sex; Female Date of : 1960 PCP Shirley Yu MD [phone] Time Treatment started: 919 Time Treatment ended: Reason for visit: CT Scan with Contrast. Need for bicarb Protocol Subjective: Jennifer Snyder offers no complaints. Objective: Lab Data: BUN Date/Time Value Ref Range Status 01/25/2018 02:43 PM 21 (H) 8 - 18 mg/dL Final Creatinine Date/Time Value Ref Range Status 03/19/2018 08:31 AM 1.75 (H) 0.70 - 1.20 mg/dL Final Pain Level: If > 5, Interventions and Effectiveness: IV Access: left AC Gauge: 18 g Blood return: Any signs or symptoms of infection or extravasations 1 hour after initiation: 2 hours after initiation: 3 hours after initiation: 4 hours after initiation: IV flushed with : 10 ml normal saline IV discontinued: Treatment: 1 liter Normal saline initiated at rate of 288 ml/hr for 1 hour, then ml hour for 96 hours. Reaction: Assessment: Jennifer Snyedr was awake, alert and tolerated the treatment well. Plan: Patient will follow up with referring physician. documented in this encounter Plan of Treatment Upcoming Encounters Date Type Department Care Team (Late st Contact Info) Description 12/19/2023 1:00 PM EDT Tech [place] [phone] Rosa Maciastanguille [place] 12/19/2023 3:00 PM EDT Office [place] [address] Gardenia Golden, [facility] [address] VASCULAR SURGERY [place], [place] [id number] 01/29/2024 1:[address] [place] [address] César Escobar MD [facility] DR THORACIC SURGERY [place], [place] [id number] 01/29/2024 2:30 PM EDT Office [place] [address] César Escobar MD [facility] DR THORACIC SURGERY [place], [place] [id number] documented as of this encounter Procedures Procedure Name Priority Date/Time Associated Diagnosis Comments CT ANGIOGRAM AORTA LOWER EXTREMITY RUNOFF Routine 03/19/2018 11:29 AM EST PVD (peripheral vascular disease) with claudication documented in this encounter Results * (ABNORMAL) CT Angiogram Aorta Lower Extremity Runoff (03/19/2018 11:29 AM EST) Anatomical Region Laterality Modality Abdomen Computed Tomogra phy Impressions 03/19/2018 1:40 PM EST Chronic calcified atherosclerotic disease. Right lower extremity: [...] CT scan of the chest is suggested. Narrative 03/19/2018 1:40 PM EST EXAMINATION: CT ANGIOGRAM AORTA LOWER EXTREMITY RUNOFF CLINICAL HISTORY: pt. with PVD; has pain with ambulation from here to parking garage gets better if she stops and rests TECHNIQUE: Helical CTA of the abdomen, pelvis and lower extremities was performed following intravenous administration of 150cc of Omnipaque 350. MPRs were performed. 3-D images were generated on an independent workstation. COMPARISON: July 13, 2011 FINDINGS: VASCULAR FINDINGS Abdominal aorta: Circumferential calcification without aneurysm nor dissection. Progression of mural calcification. Minimum luminal diameter 7 mm. Celiac: No stenosis. SMA: No stenosis. Right renal artery: Solitary, patent with origin calcification Left renal artery: Solitary, widely patent JIMI: Moderate origin stenosis RIGHT LOWER EXTREMITY Common iliac artery: Patent with stable moderate mural calcification. External iliac artery: Stable mild noncalcified proximal stenosis. Internal iliac artery: Patent with mural calcification Common femoral artery: Moderately circumferentially stenotic with new nonobstructing focal dissection. Superficial femoral artery: Stable moderate origin stenosis. Patent right superficial femoral to popliteal artery graft. Stented tolowa dee-ni' right superficial femoral artery chronically occluded. Profundus femoral artery: Widely patent. Popliteal artery: Progression of peripherally calcified severely stenotic above knee popliteal artery. Delayed filling of runoff vasculature with simultaneous venous opacification limits evaluation for patency. Patent anterior tibial artery to dorsalis pedis artery. LEFT LOWER EXTREMITY Common iliac artery: Stable [...] evaluation for patency of remaining runoff vessels. NON-VASCULAR FINDINGS Lower chest: Stable calcified left lower lobe granuloma. Interval enlargement of 9 mm peripheral posterior left lower lobe noncalcified pulmonary nodule. Subcentimeters calcified right lower lobe granuloma stable. New 8mm right lower lobe pulmonary nodule. Liver: None Bile ducts: Nondilated. Gallbladder: Collapsed Pancreas: Normal attenuation without ductal dilatation. Spleen: Normal. Kidneys/adrenals: Normal. Urinary Bladder: Normal. Lymph Nodes: No enlarged lymph nodes. Bowel: Nondilated, no wall thickening. ?? Peritoneum and mesentery: No ascites, free air, or loculated fluid collection. No mesenteric inflammation. Osseous structures: No suspicious findings. Resulting Agency Comment Unexpected Finding Kaity Fontaine MD IMG CT ORDERABLES documented in this encounter Visit Diagnoses Diagnosis PVD (peripheral vascular disease) with claudication Peripheral vascular disease, unspecified documented in this encounter Administered Medications Inactive Administered Medications - up to 3 most recent administrations Medication Order MAR Action Action Date Dose Rate Site iodixanol (VISIPAQUE) 320 mg iodine/mL injection 0-200 mL 0-200 mL, Intravenous, ONCE PRN, 1 dose, Starting on Mon03/19/18 at 1115, Until Mon03/19/18 at 1115, Per Protocol, Radiology Contrast, Routine Given 03/19/2018 11:15 AM EST 150 mLs sodium chloride 0.9% infusion 3 mL/kg/hr ? 96.2 kg (288.6 mL/hr), Intravenous, ONCE, 1 dose, On Mon03/19/18 at 0915, Angio/IR (Day of Procedure) New Bag 03/19/2018 9:15 AM EST 3 mL/kg/hr 288.6 mL/hr sodium chloride 0.9% infusion 1 mL/kg/hr ? 96.2 kg (96.2 mL/hr), Intravenous, ONCE, 1 dose, On Mon03/19/18 at 0915, Angio/IR (Day of Procedure) New Bag 03/19/2018 10:14 AM EST 1 mL/kg/hr 96.2 mL/hr documented in this encounter Care Teams Regulation Supervisor Relationship Specialty Start Date End Date Shirley Yu MD [address] [place] [address] PCP - General 11/19/14 documented as of this encounter
--- OUTSIDE RECORDS SUMMARY | 2023-12-13 18:29 | XMS_ITS | Encounter Summary ---
[place] [address] Care Team Providers Care Government Operations Consultant Name Role Phone Shirley Yu MD Primary Care Provider [phone] Reason for Visit * Reason Onset Date Comments Other 03/14/2018 Encounter Details Date Type Department Care Team (Late Contact Info) Description 03/14/2018 Telephone [place] [phone] Lulu Lau Other Social History Tobacco Use Types Packs/Day [...] encounter Miscellaneous Notes * Telephone Encounter - Lulu Lau - 03/14/2018 3:23 PM EST LVM for PT to call to confirm 03/19/18 CT with Hydration and appointment with Dr. Fontaine. Will need to have blood work done locally, please ask where she wants to have her blood work drawn. documented in this encounter Plan of Treatment Upcoming Encounters Date Type Department Care Team (Late st Contact Info) Description 12/19/2023 1:00 PM EDT Tech [place] [phone] Marguerite Macias 12/19/2023 3:00 PM EDT Office Visit [place] [address] Gardenia Golden, [facility] [place] [address] 01/29/2024 1:[address] [place] [address] César Escobar MD [facility] DR THORACIC SURGERY [place], [place] [phone] 01/29/2024 2:30 PM EDT Office Visit [place] [address] César Escobar MD [facility] [place] [address] documented as of this encounter Visit Diagnoses Not on filedocumented in this encounter Care Teams Government Operations Consultant Relationship Specialty Start Date End Date Shirley Yu MD [address] [place] [address] PCP - General 11/19/14 documented as of this encounter
--- OUTSIDE RECORDS SUMMARY | 2023-12-13 18:29 | XMS_ITS | Encounter Summary ---
[place] [address] Care Team Providers Care Signal Worker Name Role Phone Shirley Yu MD Primary Care Provider [phone] Encounter Details Date Type Department Care Team (Latest Contact Info) Description 01/25/2018 2:30 PM EDT Laboratory Appointment Lab [address] [place] [address] Other abnormal glucose ; CKD (chronic kidney disease) stage 3, GFR 30-59 ml/min Social History Tobacco Use Types Packs/Day Years [...] PM EDT Tech [place] [address] Marguerite Macias 12/19/2023 3:00 PM EDT Office [place] [address] RitGardenia joshua APRN [facility] [place] [address] 01/29/2024 1:[address] [place] [place] [address] César Escobar MD [facility] [place] [address] 01/29/2024 2:30 PM EDT Office [place] [address] César Escobar MD [facility] [place] [address] documented as of this encounter Procedures Procedure Name Priority Date/Time Associated Diagnosis Comments PTH Routine 01/25/2018 2:43 PM EDT CKD (chronic kidney disease) stage 3, GFR 30-59 ml/min HEMOGRAM Routine 01/25/2018 2:43 PM EDT CKD (chronic kidney disease) stage 3, GFR 30-59 ml/min DIFFERENTIAL, AUTOMATED Routine 01/25/2018 2:43 PM EDT CKD (chronic kidney disease) stage 3, GFR 30-59 ml/min CBC (WITH DIFF) Routine 01/25/2018 2:43 PM EDT CKD (chronic kidney disease) stage 3, GFR 30-59 ml/min PHOSPHORUS Routine 01/25/2018 2:43 PM EDT CKD (chronic kidney disease) stage 3, GFR 30-59 ml/min HEMOGLOBIN A1C Routine 01/25/2018 2:43 PM EDT Other abnormal glucose CKD (chronic kidney disease) stage 3, GFR 30-59 ml/min BASIC METABOLIC PANEL Routine 01/25/2018 2:43 PM EDT CKD (chronic kidney disease) stage 3, GFR 30-59 ml/min documented in this encounter Results * Differential, Automated (01/25/2018 2:43 PM EDT) Neutrophil % 56.6 % [facility] Neutrophil Absolute 4.16 1.70 - 6.10 x10(3)/[facility] Lymph % 29.9 % [facility] Lymphocytes Abs 2.2 0.9 - 3.2 x10(3)/[facility] Monocyte % 6.4 % [facility] Monocyte Abs 0.5 0.3 - 0.9 x10(3)/[facility] Eos % 6.0 % [facility] Eosinophils Abs 0.4 0.0 - 0.4 x10(3)/[facility] Basophil % 0.8 % [facility] Baso Absolute 0.1 0.0 - 0.1 x10(3)/[facility] Immature Gran % 0.30 % [facility] Comment: Immature granulocytes(IG's)percentage and absolute count will include metamyelocytes, myelocytes, and promyelocytes. Blood smears from CBCs yielding IG's will be scanned manually for concordance. If this scan disagrees with the automated IG or if promyelocytes are noted, a manual differential will be performed. Immature Gran Absolute 0.02 0.00 - 0.04 x10(3)/[facility] Blood specimen (specimen) 01/25/2018 2:43 PM EDT 01/25/2018 2:52 PM EDT Narrative Resulting Agency Comment Spec In Lab Brielle Rodriguez MD HEMATOLOGY ORDERABL ES [facility] [place] [address] * (ABNORMAL) Hemogram (01/25/2018 2:43 PM EDT) White Blood Cell 7.4 4.0 - 9.5 x10(3)/[facility] Red Blood Cell 3.88(L) 4.00 - 5.21 x10(6)/[facility] Hemoglobin 11.6(L) 11.7 - 15.5 gm/dL [facility] Hematocrit 36.5 35.7 - 45.8 % [facility] Mean Cell Volume 94.1 82.6 - 94.[address] [facility] Mean Cell Hemoglobin 29.9 27.1 - 32.[address] [facility] Mean Cell Hemoglobin Concentration 31.8 31.7 - 35.0 gm/dL [facility] Platelet 233 145 - 357 x10(3)/[facility] RDW Standard Deviation 45.9 37.0 - 46.0 [facility] RDW coefficient of variation 13.3 11.5 - 14.1 % [facility] Mean Platelet Volume 10.1 7.6 - 12.9 [facility] NRBC% auto 0.0 % [facility] NRBC Absolute 0.000 0.000 - 0.000 x10(3)/[facility] Blood specimen (specimen) 01/25/2018 2:43 PM EDT 01/25/2018 2:52 PM EDT Narrative Resulting Agency Comment Spec In Lab Brielle Rodriguez MD HEMATOLOGY ORDERABL ES [facility] [place] [address] * (ABNORMAL) Basic Metabolic Panel (non-fasting) (01/25/2018 2:43 PM EDT) Glucose 142 65 - 199 mg/dL [facility] Comment:Diabetes: >=200 mg/d L plus symptoms Blood Urea Nitrogen 21(H) 8 - 18 mg/dL [facility] Creatinine 1.52(H) 0.70 - 1.20 mg/dL [facility] Sodium 144 135 - 145 mmol/L [facility] [...] 15 mmol/L [facility] Calcium 9.2 8.5 - 10.5 mg/dL [facility] Est Glomerular Filtration Rate 37(L) >=60 mL/min/1. 73 m?? [facility] Comment: The eGFR was calculated using the CKD-EPI equation. As with all creatinine based estimates of kidney function, eGFR values calculated with the CKD-EPI equation are not accurate in patients with acute kidney failure, extremes of body mass or the acutely ill. [email or web address]/DHMCnkf eGFR 43(L) >=60 mL/min/1. 73 m?? [facility] Comment: The eGFR was calculated using the CKD-EPI equation. As with all creatinine based estimates of kidney function, eGFR values calculated with the CKD-EPI equation are not accurate in patients with acute kidney failure, extremes of body mass or the acutely ill. [email or web address]/DHMCnkf Blood specimen (specimen) 01/25/2018 2:43 PM EDT 01/25/2018 2:52 PM EDT Narrative Resulting Agency Comment Spec In Lab Hussain Rader MD CHEMISTRY ORDERABLES [facility] [place] [address] * Phosphorus (01/25/2018 2:43 PM EDT) Phosphorus 3.6 2.5 - 4.5 mg/dL [facility] Blood specimen (specimen) 01/25/2018 2:43 PM EDT 01/25/2018 2:52 PM EDT Narrative Resulting Agency Comment Spec In Lab Hussain Rader MD CHEMISTRY ORDERABLES Performing Organization Address City/[facility] Co de Phone Number [facility] [place] [address] * (ABNORMAL) PTH (01/25/2018 2:43 PM EDT) Parathyroid Hormone 66(H) 15 - 65 pg/mL [facility] Blood specimen (specimen) 01/25/2018 2:43 PM EDT 01/25/2018 2:52 PM EDT Narrative Resulting Agency Comment Spec In Lab Hussain Rader MD CHEMISTRY ORDERABLES Performing Organization Address [facility] Co de Phone Number [facility] [place] [address] * (ABNORMAL) Hemoglobin A1c (01/25/2018 2:43 PM [...] Mellitus, Diabetes Care 2013; 36: Suppl. 1, A07-91 Estimated Average Glucose 194 mg/dL [facility] [...] into estimated average glucose values. ??Diabetes Care 2008:31(8):7903-0001. Blood specimen (specimen) 01/25/2018 2:43 PM EDT 01/25/2018 2:52 PM EDT Narrative Resulting Agency Comment Spec In Lab Hussain Rader MD CHEMISTRY ORDERABLES Performing Organization Address [facility]/State/ZIP Co de Phone Number [facility] [place] [phone] documented in this encounter Visit Diagnoses Diagnosis Other abnormal glucose Other abnormal glucose CKD (chronic kidney disease) stage 3, GFR 30-59 ml/min Chronic kidney disease, Stage III (moderate) documented in this encounter Care Teams Signal Worker Relationship Specialty Start Date End Date Shirley Yu MD [address] [place] [address] PCP - General 11/19/14 documented as of this encounter
--- OUTSIDE RECORDS SUMMARY | 2023-12-13 18:29 | XMS_ITS | Encounter Summary ---
Author Organization [facility] [place] [address] Care Team Providers Care Factory Lay Out Engineer Name Role Phone Shirley Yu MD Primary Care Provider [phone] Encounter Details Date Type Department Care Team (Late st Contact Info) Description 05/09/2018 Orders Only [place] [address] Nathaly Robbins APRN [facility] [place] [address] PAD (peripheral artery disease) Social History Tobacco [...] PM EDT Tech Visit Vascular [place] [address] Marguerite Macias 12/19/2023 3:00 PM EDT Office [place] [address] Gardenia Golden APRN [facility] [place] [address] 01/29/2024 1:[address] [place] [address] César Escobar MD [facility] [place] [address] 01/29/2024 2:30 PM EDT Office [place] [address] César Escobar MD [facility] [place] [address] documented as of this encounter Results * Unilat Bypass Graft Assess (05/29/2018 10:04 AM EST) Pathologist [facility] VB Text Report Department: Vascular Surgery Lab Patient: [id number] (JENNIFER SNYDER) CPT: 99897 ICD10: I73.9 Referring Physician: NATHALY ROBBINS ?? Indications: ??s/p angioplasty of RIGHT fem-pop bypass, ? patency ICD10 Diagnosis Code: I73.9 Findings: Right ? PSV (cm/s) ??EDV ??Location [...] Artery (Graft) ? 112 ?0 ??Popliteal ? Right Fem-Pop AK SEGMENT ? PSV (cm/s) ??EDV ??Location ? Inflow Anastomosis, Right ?230 ?0 ??Common Femoral ?? Outflow Anastomosis, Right ?73 ?4 ??Popliteal ? Right Low Thigh (Graft) ? 68 ?0 ? Right Mid Thigh (Graft) ? 66 ?0 ? Right Inflow Artery (Graft) ?446 ?? 25 ??Common Femoral ?? Right Outflow Artery (Graft) ? 112 ?0 ??Popliteal ? Right Proximal Graft ?98 ?? 10 ? Right Distal Graft ?48 ?4 ? Interpretation: RIGHT: Patent common femoral to popliteal artery bypass graft with elevated velocities in the inflow (PSV 446 cm/s) consistent with >50% stenosis. Improved compared to preoperative exam done 03/14/2018 where inflow velocities were 500 cm/s and there were also elevated velocities in the proximal graft (PSV 566 cm/s). Electronically Signed by: JAXON MONTAÑO MD on 2018-05-29 05:14:25 PM [facility] VB Text Report End of Report [facility] 05/29/2018 10:0 4 AM EST Nathaly Robbins APRN VASCULAR ORDERABLE S [facility] documented in this encounter Visit Diagnoses Diagnosis PAD (peripheral artery disease) Peripheral vascular disease, unspecified documented in this encounter Care Teams Factory Lay Out Engineer Relationship Specialty Start Date End Date Shirley Yu MD [address] [place] [address] PCP - General 11/19/14 documented as of this encounter
--- OUTSIDE RECORDS SUMMARY | 2023-12-13 18:29 | XMS_ITS | Encounter Summary ---
[place] [address] Care Team Providers [employer] Front Desk Clerk Name Role Phone Shirley Yu MD Primary Care Provider [phone] Reason for Referral * Diagnostic Test (Routine) - Closed Specialty Diagnoses / Procedures Referred By Dominik mcleod Referred To Contact Radiology Diagnoses PVD (peripheral vascular disease) with claudication Procedures CT Angiogram Aorta Lower Extremity Runoff Kaity Fontaine MD [facility] [place] [address] [facility] [place] [address] Referral ID Status Reason Start Date Expiration Date V isits Requested Visits Authorized [id number] Closed Specialty Service Requested 03/14/2018 03/14/2019 1 1 Reason for Visit * Reason Comments Claudication CLAUDICATION S/P GRA FT PATENCY AND STENOSIS Encounter Details Date Type Department Care Team (Late st Contact Info) Description 03/14/2018 2:00 PM EST Office [place] [address] Kaity Fontaine MD [facility] [place] [address] PVD (peripheral vascular disease) with claudication; Bilateral carotid artery stenosis Social History Tobacco [...] Sign Reading Time Taken Comments Blood Pressure 155/62 03/14/2018 2:16 PM EST Pulse 78 03/14/2018 2:16 PM EST Temperature - - Respiratory Rate 18 03/14/2018 2:16 PM EST Oxygen Saturation - - Inhaled Oxygen Concentration - - Weight 96.2 kg (212 lb) 03/14/2018 2:16 PM EST Height 170.2 cm (5' 7) 03/14/2018 2:16 PM EST Body Mass Index 33.2 03/14/2018 2:16 PM EST documented in this encounter Progress Notes * Kaity Fontaine MD - 03/14/2018 2:00 PM EST Images from the original note were not included. Vascular Surgery Clinic Visit March 15, 2018 CC: Patient is a 57 y.o. female who is here for follow up of PVD. 2000 L CEA (Dr Fong) 2004 R CEA (Dr Avendano) 2007 R fem-AK-pop bypass with GSV (Dr Avendano) 2012 L EIA stent (8x60 SE p7), RLE vein graft POLITICAL ANALYST (Dr Avendano) Presents for scheduled follow up visit. Has noted increasing RLE claudication symptoms over the last 3-4 months. States she has symptoms after walking about 5-10 minutes. Denies any rest pain or non-healing wounds. Denies any symptoms in LLE. ROS is negative for history of CAD, NE, CP, or SOB. No history suggestive of stroke, TIA, or amaurosis fugax. Has DM, on insulin pump. Is a past smoker, having quit in 2014. PMH: HTN, HLD, DM, hyperthyroidism, GINGER/BSO '02 All: sulfa, PCN Meds include: asa, pradaxa, pletal, coreg, losartan, zocor, protonix, synthroid, insulin, celexa Tob: quit 2014 FHx: neg for coagulopathy Physical Exam: On exam, she is in NAD, RRR, CTA B, Abd soft/NT/ND. Unable to palpate femoral pulses on either side, partly due to body habitus. No open lesions on either foot. Labs: Clam Grower (01/25/18): 1.52 Lipids (10/14/14): TC 160, HDL 78, LDL 109 HbA1C (01/25/18): 8.4 Imaging studies: I have personally reviewed the following imaging studies. Carotid duplex (01/05/18): Interpretation: RIGHT: There is irregular plaque in [...] ?1.70 ? 50-69% ? 326 ?? 3.70 Graft duplex (03/14/18): Findings: Right ?PSV (cm/s) ??EDV ?? Inflow [...] ?? Outflow Artery (Graft)?105 ?? 24 ?? SHEFALI (03/14/18): 0.56/0.46 A/P: 57yo female with failing right fem-pop vein graft. Will plan for CTA with BLE runoff for further evaluation. -con't asa, pradaxa, and statin -CTA with BLE runoff -f/u after above -will need repeat carotid duplex in 1 year Kaity Fontaine MD documented in this encounter Plan of Treatment Upcoming Encounters Date Type Department Care Team (Late st Contact Info) Description 12/19/2023 1:00 PM EDT Tech Visit Vascular Lab at [place] [phone] Marguerite Macias 12/19/2023 3:00 PM EDT Office [place] [address] Gardenia Golden, CONTRACT NEGOTIATION MANAGER [facility] DR VASCULAR SURGERY [place], [place] [id number] 01/29/2024 1:[address] [place] [address] César Escobar MD [facility] [place] [address] 01/29/2024 2:30 PM EDT Office [place] [address] César Escobar MD [facility] [place] [address] documented as of this encounter Results * (ABNORMAL) CT Angiogram [...] superficial femoral to popliteal artery graft. Stented [place] right superficial femoral artery chronically occluded. Profundus [...] disease) with claudication Peripheral vascular disease, unspecified Bilateral carotid artery stenosis Occlusion and stenosis of multiple and bilateral precerebral arteries without mention of cerebral infarction PVD (peripheral vascular disease) with claudication Peripheral vascular disease, unspecified documented in this encounter Care Teams Motel Front Desk Clerk Relationship Specialty Start Date End Date Shirley Yu MD [address] [place] [address] PCP - General 11/19/14 documented as of this encounter
--- OUTSIDE RECORDS SUMMARY | 2023-12-13 18:29 | XMS_ITS | Encounter Summary ---
Author Organization [facility] [place] [address] Care Team Providers Care Electronic Imaging System Operator Name Role Phone Shirley Yu MD Primary Care Provider [phone] Encounter Details Date Type Department Care Team (Latest Contact Info) Description 03/14/2018 12:12 PM EST - 03/14/2018 11:59 PM [facility] Hospital Encounter [place] [phone] Taz Castillo [place] S/P bypass graft of extremity Discharge Disposition: Home Social History Tobacco Use [...] Diabetic Supplies, Miscellan. Misc Form faxed to [employer] for pump supplies. 100 each 12 03/23/2015 [...] PM EDT Tech Visit [place] [phone] Marguerite Macias 12/19/2023 3:00 PM EDT Office [place] [address] Gardenia Golden APRN [facility] [place] [address] 01/29/2024 1:[address] [place] [address] César Escobar MD [facility] [place] [address] 01/29/2024 2:30 PM EDT Office Visit Thoracic Surgery at [facility] [place] [phone] César Escobar MD [facility] [place] [address] documented as of this encounter Procedures Procedure Name Priority Date/Time Associated Diagnosis Comments ARTERIAL DUPLEX LEG UNILA Routine 03/14/2018 12:30 PM EST S/P bypass graft of extremity SHEFALI, LEGS, MULTIPLE LEVELS Routine 03/14/2018 12:30 PM EST S/P bypass graft of extremity documented in this encounter Results * SHEFALI, legs, multiple levels (03/14/2018 12:30 PM EST) VB Text Report Department: Vascular Surgery Lab Patient: [id number] (JENNIFER SNYDER) CPT: 77922 ICD10: Z95.828 Referring Physician: OFELIA POLANCO APRN ?? Indications: f/u of > [...] Report VASCUBASE 03/14/2018 12:3 0 PM EST Ofelia Polanco APRN VASCULAR ORDERABLE S VASCUBASE * Arterial Duplex Leg, Unil (03/14/2018 12:30 PM EST) VB Text Report Department: Vascular Surgery Lab Patient: [id number] (JENNIFER SNYDER) CPT: 63823 ICD10: Z95.828 Referring Physician: OFELIA POLANCO APRN ?? Indications: f/u stenosis of [...] ?105 ?? 24 ?? Interpretation: Right- Patent CARD PROCESSING CLERK inflow with a PSV of 500 cm/s [...] Report VASCUBASE 03/14/2018 12:3 0 PM EST Ofelia Polanco APRN VASCULAR ORDERABLE S VASCUBASE documented in this encounter Visit Diagnoses Diagnosis S/P bypass graft of extremity Other postprocedural status documented in this encounter Care Teams Electronic Imaging System Operator Relationship Specialty Start Date End Date Shirley Yu MD [address] [place] [address] PCP - General 11/19/14 documented as of this encounter
--- OUTSIDE RECORDS SUMMARY | 2023-12-13 18:29 | XMS_ITS | Encounter Summary ---
Author Organization Formerly [facility] [place] [address] Care Team Providers Care Judge'S Clerk Name Role Phone Shirley Yu MD Primary Care Provider [phone] Reason for Visit * Consultation (Routine) - Canceled Specialty Diagnoses / Procedures Referred By Contpietro t Referred To Contact Nephrology Diagnoses RENAL INSUFFICIENCY Shirley Yu MD [address] [place] [address] [facility] [address] [place] [phone] Referral ID Status Reason Start Date Expiration Date V isits Requested Visits Authorized [id number] Canceled Consult, Test & Treat Connection [facility] 12/04/2017 12/04/2018 3 3 Encounter Details Date Type Department Care Team (Latest Contact Info) Description 01/25/2018 3:30 PM EDT Office Visit [place] [address] Hussain Rader MD [facility] [place] [address] Brielle Rodriguez MD [facility] [address] CKD (chronic kidney disease) stage 3, GFR 30-59 ml/min; Other abnormal glucose ; PAD (peripheral artery disease); Hypertensive kidney disease with CKD stage III Social History Tobacco [...] Sign Reading Time Taken Comments Blood Pressure 138/58 01/25/2018 3:06 PM EDT Pulse 78 01/25/2018 3:06 PM EDT Temperature - - Respiratory Rate - - Oxygen Saturation - - Inhaled Oxygen Concentration - - Weight 99.3 kg (219 lb) 01/25/2018 3:06 PM EDT Height 168.9 cm (5' 6.5) 01/25/2018 3:06 PM EDT Body Mass Index 34.82 01/25/2018 3:06 PM EDT documented in this encounter Progress Notes * Brielle Rodriguez MD - 01/25/2018 3:30 PM EDT Nephrology clinic follow up notes: PATIENT: Jennifer Snyder : 1960 ID:Ms blake is a 54 yo female who is being followed for CKD related to diabetic nephropathy. Was type -1 diabetic for> 42 yrs been on insulin which is complicated by retinopathy and nephropathy. ?? Interim history: She had complicated PAD ,under close follow up with vascular surgery ,planning angio to evaluate the patency of rt bypass graft.Denied any urinary problems ,no h/o kidney stones or froth or burning .Blood pressures - been stable @140-130/80s ,sugars been good with A1C:8.4. .No nausea,vomitting or increased swellings or chest pain or palpitations . Other history:S/p Bilateral CEA's, left iliac stenting in 2005, and right common femoral to above-knee popliteal vein graft in 2008. 09/11/12 LEFT EIA stent placement (8x60mm Everflex dilated to 7mm) RIGHT ELECTRICAL LOGGING ENGINEER angioplasty (Milana 5x40mm to 6 elias) Vascular planning rt sided angio to evaluate patency of right popliteal to femoral bypass as there is increased stenosis in the graft but was currently on hold due to CRF. Past Medical History: Diagnosis Date ??? Allergy Sulfa, Penicillin ??? Cardiac disease PAD ??? Cataract ??? Depression 02/18/2015 ??? Diabetes mellitus Type 1 ??? DM eyes ??? Hyperlipidemia ??? Hypertension ??? Skin disease Hyperkeratosis palmaris et plantaris ??? Thyroid disease Hyperthyroidism Past Surgical History: Procedure Laterality Date ??? CATARACT EXTRACTION, EXTRACAPSULAR, W/ LENS INSERTION 06/2013 OU - Dr Szymanski ??? RETINAL LASER SURGERY Left 01/20/2012 OS ??? RETINAL LASER SURGERY Left 03/02/2012 OS ??? RETINAL LASER SURGERY Left 08/10/2012 OS ??? RETINAL LASER SURGERY Right 09/28/2012 OD ??? RETINAL LASER SURGERY Right 10/26/2012 OD ??? RETINAL LASER SURGERY Right 02/15/2013 PRP OD - Dr eVga ??? RETINAL LASER SURGERY Left 05/22/2015 PRP OS - HORTENCIA ??? VASCULAR SURGERY 2001 Left CEA ??? VASCULAR SURGERY 2006 Left com iliac stent, R SFA stents ??? VASCULAR SURGERY 1009 Right ELECTRICAL LOGGING ENGINEER-AK pop vein graft ??? YAG CAPSULOTOMY Right 02/27/15 YAG CAP OD - Nessa Family History Problem Relation Age of Onset ??? Cataracts Mother ??? Diabetes Father ??? Heart Disease Father ??? Cancer Maternal Grandmother ??? Thyroid Disease Neg Hx ??? Stroke Neg Hx ??? Strabismus Neg Hx ??? Retinal Detachment Neg Hx ??? Macular Degeneration Neg Hx ??? Hypertension Neg Hx ??? Glaucoma Neg Hx ??? Blindness Neg Hx ??? Amblyopia Neg Hx Social History Social History Narrative Not on file Outpatient medications: Current Outpatient Medications on File Prior to Visit Medication Sig Dispense Refill ??? simvastatin (ZOCOR) 40 mg Tablet ??? levothyroxine (SYNTHROID) 125 mcg Tablet Take 1 tablet by mouth daily. 90 tablet 3 ??? ONETOUCH ULTRA TEST [...] Diabetic Supplies, Miscellan. Misc Form faxed to [employer] for pump supplies. 100 each 12 ??? [...] 55-60 Units subcutaneously continuous. Via insulin pump Current Facility-Administered Medications on File Prior to Visit Medication Dose Route Frequency Provider Last Rate Last Dose ??? [DISCONTINUED] sodium bicarbonate 150 mEq in dextrose 5% 1000 mL infusion 3 mL/kg/hr Intravenous Continuous Ofelia Polanco, MONITORING SPECIALIST MEDICATIONS: Allergies Allergen Reactions ??? Sulfa (Sulfonamide Antibiotics) Other (See Comments) Renal failure, bleeding ??? Penicillins Unknown ROS: Constitutional - No fevers, chills, weight loss Skin - No rash or itchy skin HEENT - No headaches, visual changes Resp - No cough, shortness of breath CV - No chest pain, leg swelling, difficulty breathing lying flat GI - No nausea, vomiting,change in bowel habits/abdominal pain - No change in urine output. No pain urinating or blood in urine. Neuro - No weakness. No numbness/ tingling in extremities. PHYSICAL EXAM: Last value Range last 24 hrs Temperature Temp: -- Heart Rate Heart Rate: 78 Heart Rate: [78] Blood Pressure BP: 138/58 BP: (138)/(58) Respiratory Rate Resp: -- SpO2 SpO2: -- Appearance - Alert, Comfortable. Skin - No exanthem. HEENT - Sclera white. Mucous membranes moist. Chest: . Lungs clear to ausculatation w/o wheezes/ rhonchi/ crackles. Heart - S1 and S2 clear w/o murmur, gallop, or rub. JVP not elevated. Abd - Soft. + BS. No bruit. Non tender. Ext - Warm. No cyanosis. No dependent edema. Neuro - No asterixis. STUDIES: Labs: CBC: Recent Labs 01/25/18 1443 WBC 7.4 HGB 11.6* PLATELET 233 Chemistry: No results for input(s): NA, K, [...] G3 b A2: Kidney function is stable with creatinine in range of 1.52 CKD due to skilled nursing diabetes and HTN, but her urine protein creatinine ratio is<0.2 , have microalbuminuria. UA showing numerous WBCs,bacteria ,protein and trace blood Will do paraproteinemia wup ,US showing no structural lesions as of 2016 Vascular surgery -planning angio-in that case risk of worsening is a possibility ,will recommend C02 angio or,hydrate with normal saline @3 ml/kg/hr 1 hr prior then 1.5 ml/kg during procedure and 6 ml/kg/hr 5-6 hrs post procedure - as preventive measure. 2,HTN: Will cont with losartan and coreg,seems optimally controlled. 3,Bone and Mineral Disease: Calcium ,phos and PTH at goal. 4,Anemia: Hemoglobin at goal.will do anemia work up during next visit. RTC in 6 months Thanks for letting us participate in the care of this patient. Seen and Discussed w/ Dr. Dior Rodriguez MD Nephrology Fellow #[id number] * Hussain Rader MD - 01/25/2018 3:30 PM EDT I saw and discussed the patient with and agree with the assessment and plan plan in her note. This 57-year-old female with history of CKD stage IIIb likely secondary to diabetes presents for follow-up. There is concern patient has significant peripheral vascular disease indicating angiogram. Her kidney function is stable from December 2016 and she remains on losartan. If unable to image blood flow by any other means, would proceed with angiogram with the understanding that patient is at increased risk for further deterioration of her kidney function. Would continue to reiterate these risks with patient. I would aggressively give fluids prior and post contrast exposure. We will check urine analysis, bone mineral disease and anemia labs today. documented in this encounter Plan of Treatment Upcoming Encounters Date Type Department Care Team (Late st Contact Info) Description 12/19/2023 1:00 PM EDT Tech [place] [address] Marguerite Macias 12/19/2023 3:00 PM EDT Office [place] [address] Gardenia Golden, LADARIUS [facility] [address] 01/29/2024 1:[address] [place] [address] César Escobar MD [facility] [place] [address] 01/29/2024 2:30 PM EDT Office [place] [phone] César Escobar MD [facility] [place] [address] documented as of this encounter Procedures Procedure Name Priority Date/Time Associated Diagnosis Comments URINALYSIS MICROSCOPIC EXAM STAT 01/25/2018 3:00 PM EDT PROTEIN/CREATININE RATIO, URINE Routine 01/25/2018 3:00 PM EDT CKD (chronic kidney disease) stage 3, GFR 30-59 ml/min PROTEIN ELECTROPHORESIS, URINE, RANDOM Routine 01/25/2018 3:00 PM EDT CKD (chronic kidney disease) stage 3, GFR 30-59 ml/min URINALYSIS WITH REFLEX CULTURE STAT 01/25/2018 3:00 PM EDT CKD (chronic kidney disease) stage 3, GFR 30-59 ml/min URINE CULTURE STAT 01/25/2018 3:00 PM EDT documented in this encounter Results * (ABNORMAL) Urine culture (01/25/2018 3:00 PM EDT) Urine Culture Greater than 100,000 cfu/ml Escherichia coli(A) [facility] Organism Escherichia coli(A) [facility] Urine specimen (specimen) 01/25/2018 3:00 PM EDT 01/25/2018 5:58 PM EDT Narrative Resulting Agency Comment Spec In Lab Organism Antibiotic Method Susceptibility Escherichia coli Amikacin MICROSCAN METHOD Sensitive Escherichia coli Ampicillin MICROSCAN METHOD Sensitive Escherichia coli Ampicillin + Sulbactam MICROSCAN METH OD Sensitive Escherichia coli Aztreonam MICROSCAN METHOD Sensitive Escherichia coli Cefazolin MICROSCAN METHOD Sensitive Escherichia coli Cefepime MICROSCAN METHOD <=4: Sensitive Escherichia coli Ceftazidime MICROSCAN METHOD <=1: Sensitive Escherichia coli Ceftriaxone MICROSCAN METHOD Sensitive Escherichia coli Cefuroxime MICROSCAN METHOD Sensitive Escherichia coli Ciprofloxacin MICROSCAN METHOD Sensitive Escherichia coli Gentamicin MICROSCAN METHOD Sensitive Escherichia coli Levofloxacin MICROSCAN METHOD Sensitive Escherichia coli Meropenem MICROSCAN METHOD <=1: Sensitive Escherichia coli Nitrofurantoin MICROSCAN METHOD Sensitive Escherichia coli Piperacillin/Tazobactam MICROSCAN MET HOD <=16: Sensitive Escherichia coli Tetracycline MICROSCAN METHOD Sensitive Escherichia coli Tobramycin MICROSCAN METHOD Sensitive Escherichia coli Trimethoprim/Sulfa MICROSCAN METHOD Sensitive Brielle Rodriguez MD MICROBIOLOGY - GENE RAL ORDERABLES Performing Organization Address City/[facility]/ZIP Co de Phone Number [facility] [place] [address] * (ABNORMAL) Urinalysis Microscopic Exam (01/25/2018 3:00 PM EDT) RBC, Urine 2 0 - 4 /HPF [facility] WBC, Urine 54(H) 0 - 5 /HPF [facility] WBC Clumps, Urine Rare(A) None /HPF [facility] Bacteria, Urine Few(A) None /HPF [facility] Squamous Epithelial Cells Raw Data, Urine <1 <=4 /HPF [facility] Hyaline Casts, Urine 1 0 - 2 /LPF [facility] Urine specimen (specimen) 01/25/2018 3:00 PM EDT 01/25/2018 4:18 PM EDT Narrative Resulting Agency Comment Spec In Lab Brielle Rodriguez MD URINE ORDERABLES Performing Organization Address [facility]/ZIP Co de Phone Number [facility] [place] [address] * (ABNORMAL) Protein Electrophoresis, urine, random (01/25/2018 3:00 PM EDT) Protein, Urine 22(H) 0 - 12 mg/dL [facility] U Albumin 68 % total [facility] Globulin, Urine 32 % total [facility] M1 Band, Urine None Detected [facility] UPEP Comments See Note [facility] Comment: There is no evidence of clonal free light chains in this patient's urine sample. Urine specimen (specimen) 01/25/2018 3:00 PM EDT 01/25/2018 4:18 PM EDT Narrative Resulting Agency Comment Spec In Lab Hussain Rader MD URINE ORDERABLES [facility] [place] [address] * (ABNORMAL) Urinalysis with reflex Culture (01/25/2018 3:00 PM EDT) Glucose, Urine Dipstick Negative Negative mg/dL [facility] Protein, Urine Dipstick Negative Negative mg/dL [facility] Bilirubin, Urine Dipstick Negative Negative mg/dL [facility] Comment: Clinical correlation required for positive Urine Bilirubin results as false positive may occur with some drugs and drug related products. If a false positive is suspected a serum total bilirubin should be considered if clinically indicated. Urobilinogen, Urine Dipstick Normal Normal mg/dL [facility] pH, Urn (dipstick) 5.0 5.0 - 8.0 [facility] Blood, Urine Dipstick Small(A) Negative mg/dL [facility] Ketone, Urine Dipstick Negative Negative mg/dL [facility] Nitrite, Urine Dipstick Positive(A) Negative [facility] Leukocytes, Urine Dipstick Small(A) Negative [facility] Appearance, Urine Dipstick Clear Clear [facility] Specific Decker Urine Automated 1.014 1.002 - 1.030 [facility] Color, Urine Dipstick Yellow Yellow [facility] Reflex to Culture Yes [facility] Urine specimen (specimen) 01/25/2018 3:00 PM EDT 01/25/2018 4:18 PM EDT Narrative Resulting Agency Comment Spec In Lab Hussain Rader MD URINE ORDERABLES Performing Organization Address [facility] Co de Phone Number [facility] [place] [address] * (ABNORMAL) Protein/Creatinine Ratio, urine (01/25/2018 3:00 PM EDT) Creatinine, Urine 98 mg/dL [facility] Protein, Urine 22(H) 0 - 12 mg/dL [facility] Protein / Creatinine Ratio, Urine 0.2 ratio [facility] Urine specimen (specimen) 01/25/2018 3:00 PM EDT 01/25/2018 4:18 PM EDT Narrative Resulting Agency Comment Spec In Lab Hussain Rader MD URINE ORDERABLES Performing Organization Address [facility] de Phone Number [facility] [place] [address] * (ABNORMAL) Hemoglobin A1c (01/25/2018 2:43 PM EDT) Hemoglobin A1c 8.4(H) 4.3 - 5.6 % [facility] Comment: Reference Range: 4.3 - [...] Mellitus, Diabetes Care 2013; 36: Suppl. 1, R57-87 Estimated Average Glucose 194 mg/dL [facility] Comment: eAG equivalents for HbA1c [...] into estimated average glucose values. ??Diabetes Care 2008:31(8):8716-6833. Blood specimen (specimen) 01/25/2018 2:43 PM EDT 01/25/2018 2:52 PM EDT Narrative Resulting Agency Comment Spec In Lab Hussain Rader MD CHEMISTRY ORDERABLES Performing Organization Address [facility] Co de Phone Number [facility] [place] [address] * (ABNORMAL) PTH (01/25/2018 2:43 PM EDT) Parathyroid Hormone 66(H) 15 - 65 pg/mL [facility] Blood specimen (specimen) 01/25/2018 2:43 PM EDT 01/25/2018 2:52 PM EDT Narrative Resulting Agency Comment Spec In Lab Hussain Rader MD CHEMISTRY ORDERABLES Performing Organization Address [facility] Co de Phone Number [facility] [place] [address] * Phosphorus (01/25/2018 2:43 PM EDT) Phosphorus 3.6 2.5 - 4.5 mg/dL [facility] Blood specimen (specimen) 01/25/2018 2:43 PM EDT 01/25/2018 2:52 PM EDT Narrative Resulting Agency Comment Spec In Lab Hussain Rader MD CHEMISTRY ORDERABLES [facility] [place] [address] * (ABNORMAL) Basic Metabolic Panel (non-fasting) (01/25/2018 2:43 PM EDT) Glucose 142 65 - 199 mg/dL [facility] Comment:Diabetes: >=200 mg/d L plus symptoms Blood Urea Nitrogen 21(H) 8 - 18 mg/dL [facility] Creatinine 1.52(H) 0.70 - 1.20 mg/dL [facility] Sodium 144 135 - 145 mmol/L [facility] Potassium 4.4 3.5 - 5.0 mmol/L [facility] Comment: Please note: ??Patients with WBC >100,000 may have falsely elevated Potassium levels. ??For accurate Potassium quantification in these patients send serum separator tube (gold top) for subsequent determinations. ??Contact the Clinical Chemistry Laboratory if there are any questions. Chloride 106 98 - 107 mmol/L [facility] Carbon Dioxide 25 22 - 31 mmol/L [facility] Anion Gap 13 5 - 15 mmol/L [facility] Calcium 9.2 8.5 - 10.5 mg/dL [facility] Est Glomerular Filtration Rate 37(L) >=60 mL/min/1. 73 m?? [facility] Comment: The eGFR was calculated using the CKD-EPI equation. As with all creatinine based estimates of kidney function, eGFR values calculated with the CKD-EPI equation are not accurate in patients with acute kidney failure, extremes of body mass or the acutely ill. http://[employer]/DHMCnkf eGFR 43(L) >=60 mL/min/1. 73 m?? [facility] Comment: The eGFR was calculated using the CKD-EPI equation. As with all creatinine based estimates of kidney function, eGFR values calculated with the CKD-EPI equation are not accurate in patients with acute kidney failure, extremes of body mass or the acutely ill. http://[employer]MCnkf Blood specimen (specimen) 01/25/2018 2:43 PM EDT 01/25/2018 2:52 PM EDT Narrative Resulting Agency Comment Spec In Lab Hussain Rader MD CHEMISTRY ORDERABLES Performing Organization Address [facility]/State/[facility] Co de Phone Number [facility] [place] [address] documented in this encounter Visit Diagnoses Diagnosis CKD (chronic kidney disease) stage 3, GFR 30-59 ml/min Chronic kidney disease, Stage III (moderate) Other abnormal glucose Other abnormal glucose PAD (peripheral artery disease) Peripheral vascular disease, unspecified Hypertensive kidney disease with CKD stage III Unspecified hypertensive kidney disease with chronic kidney disease stage I through stage IV, or unspecified documented in this encounter Care Teams Judge'S Clerk Relationship Specialty Start Date End Date Shirley Yu MD [address] [place] [address] PCP - General 11/19/14 documented as of this encounter
--- OUTSIDE RECORDS SUMMARY | 2023-12-13 18:29 | XMS_ITS | Encounter Summary ---
Author Organization [place] [address] Care Team Providers Care Pewter Finisher Name Role Phone Shirley Yu MD Primary Care Provider [phone] Encounter Details Date Type Department Care Team (Latest Contact Info) Description 04/23/2018 11:30 AM EST - 04/23/2018 11:59 PM EST Hospital [place] [phone] Pulmonary nodules Discharge Disposition: Home Social History Tobacco Use [...] Diabetic Supplies, Miscellan. Misc Form faxed to [employer] for pump supplies. 100 each 12 03/23/2015 [...] daily. 022 documented as of this encounter Procedure Notes * Calos Barnes MD - 04/23/2018 5:25 PM ESTAssociated Order(s): PULMONARY FUNCTION TEST Normal spirometry. The isolated reduction in diffusing capacity is a non-specific finding consistent with a variety ofcardiopulmonary disorders as well as anemia. Early ILD cannot be excluded Normal resting oxymetry on room air Calos Barnes MD documented in this encounter Plan of Treatment Upcoming Encounters Date Type Department Care Team (Late st Contact Info) Description 12/19/2023 1:00 PM EDT Tech [place] [phone] Marguerite Macias 12/19/2023 3:00 PM EDT Office Visit [place] [phone] Gardenia Golden APRN [facility] [place] [place] [address] 01/29/2024 1:[address] [place] [address] César Escobar MD [facility] DR THORACIC SURGERY [place], [place] [id number] 01/29/2024 2:30 PM EDT Office [place] [phone] César Escobar MD [facility] [place] [address] documented as of this encounter Procedures Procedure Name Priority Date/Time Associated Diagnosis Comments COMMON PULMONARY FUNCTION TEST Routine 04/23/2018 5:25 PM EST Pulmonary nodules documented in this encounter Results * Pulmonary Function Testing [...] oxymetry on room air Calos Barnes MD César Escobar MD PFT ORDERABLES documented in this encounter Visit Diagnoses Diagnosis Pulmonary nodules Other nonspecific abnormal finding of lung field documented in this encounter Care Teams Pewter Finisher Relationship Specialty Start Date End Date Shirley Yu MD [address] [place] [address] PCP - General 11/19/14 documented as of this encounter
--- OUTSIDE RECORDS SUMMARY | 2023-12-13 18:29 | XMS_ITS | Encounter Summary ---
Author Organization [facility] [place] [address] Care Team Providers Care Property Claim Rep Name Role Phone Shirley Yu MD Primary Care Provider [phone] Reason for Visit * Reason Onset Date Comments Medication Refill 01/11/2017 Encounter Details Date Type Department Care Team (Late Contact Info) Description 01/11/2017 [place] [phone] Lluvia Oropeza PUBLIC SPEAKING PROFESSOR [facility] [place] [address] Social History Tobacco Use Types Packs/Day Years [...] PM EDT Tech [place] [address] Marguerite Macias 12/19/2023 3:00 PM EDT Office [place] [address] Gardenia Golden APRN [facility] [place] [address] 01/29/2024 1:[address] [place] [place] [phone] César Escobar MD [facility] [place] [address] 01/29/2024 2:30 PM EDT Office [place] [phone] César Escobar MD [facility] [place] [address] documented as of this encounter Visit Diagnoses Not on filedocumented in this encounter Care Teams Property Claim Rep Relationship Specialty Start Date End Date Shirley Yu MD [address] [place] [address] PCP - General 11/19/14 documented as of this encounter
--- OUTSIDE RECORDS SUMMARY | 2023-12-13 18:29 | XMS_ITS | Encounter Summary ---
[place] [address] Care Team Providers Care Power Transformer Repairer Name Role Phone Shirley Yu MD Primary Care Provider [phone] Encounter Details Date Type Department Care Team (Late st Contact Info) Description 05/29/2018 10:00 AM EST Tech [place] [address] Nicholas Awad, RVT PAD (peripheral artery disease) Social History Tobacco [...] PM EDT Tech [place] [address] Marguerite Macias 12/19/2023 3:00 PM EDT Office [place] [address] Gardenia Golden APRN [facility] [place] [address] 01/29/2024 1:[address] [place] [address] César Escobar MD [facility] [place] [address] 01/29/2024 2:30 PM EDT Office [place] [address] César Escobar MD [facility] [place] [address] documented as of this encounter Procedures Procedure Name Priority Date/Time Associated Diagnosis Comments UNILATERAL BYPASS GRAFT ASSESS Routine 05/29/2018 10:04 AM EST PAD (peripheral artery disease) SHEFALI, LEGS, MULTIPLE LEVELS Routine 05/29/2018 10:04 AM EST PAD (peripheral artery disease) documented in this encounter Results * SHEFALI, legs, multiple levels (05/29/2018 10:04 AM EST) VB Text Report Department: Vascular Surgery Lab Patient: [id number] (JENNIFER SNYDER) CPT: 26609 ICD10: I73.9 Referring Physician: JAXON FONTAINE MD [...] ORDERABLES VASCUBASE * Unilat Bypass Graft Assess (05/29/2018 10:04 AM EST) VB Text Report Department: Vascular Surgery Lab Patient: [id number] (JENNIFER SNYDER) CPT: 44176 ICD10: I73.9 Referring Physician: NATHALY ROBBINS ?? [...] (PSV 566 cm/s). Electronically Signed by: JAXON FONTAINE MD on 2018-05-29 05:14:25 PM VASCUBASE VB Text Report End of Report VASCUBASE 05/29/2018 10:0 4 AM EST Nathaly Robbins APRN VASCULAR ORDERABLE S VASCUBASE documented in this encounter Visit Diagnoses Diagnosis PAD (peripheral artery disease) Peripheral vascular disease, unspecified documented in this encounter Care Teams Power Transformer Repairer Relationship Specialty Start Date End Date Shirley Yu MD [address] [place] [address] PCP - General 11/19/14 documented as of this encounter
--- OUTSIDE RECORDS SUMMARY | 2023-12-13 18:29 | XMS_ITS | Encounter Summary ---
Author Organization [facility] [place] [address] Care Team Providers Care Meter And Regulator Shop Supervisor Name Role Phone Shirley Yu MD Primary Care Provider [phone] Reason for Visit * Diagnostic Test (Routine) - Closed Specialty Diagnoses / Procedures Referred By Dominik mcleod Referred To Contact Radiology Diagnoses Pulmonary nodules Procedures CT Chest wo Contrast (Generic) CT Chest w Contrast César Escobar MD [facility] [place] [address] [facility] [place] [address] Referral ID Status Reason Start Date Expiration Date V isits Requested Visits Authorized [id number] Closed Specialty Service Requested 04/16/2018 04/16/2019 1 1 Encounter Details Date Type Department Care Team (Latest Contact Info) Description 04/23/2018 9:50 AM EST - 04/23/2018 11:29 AM EST Hospital [place] [address] César Escobar MD [facility] [place] [address] Pulmonary nodules Discharge Disposition: Home Social History [...] TWICE A DAY 98 07/26/2016 Diabetic Supplies, [email or web address] Mis Form faxed to [employer] for pump supplies. 100 each 12 03/23/2015 [...] PM EDT Tech [place] [address] Marguerite Macias 12/19/2023 3:00 PM EDT Office [place] [address] Gardenia Golden, [facility] [address] VASCULAR SURGERY [place], [place] [id number] 01/29/2024 1:[address] [place] [address] César Escobar MD [facility] DR THORACIC SURGERY [place], [place] [id number] 01/29/2024 2:30 PM EDT Office [place] [address] César Escobar MD [facility] [place] [address] documented as of this encounter Procedures Procedure Name Priority Date/Time Associated Diagnosis Comments CT CHEST WO CONTRAST (GENERIC) Routine 04/23/2018 10:55 AM EST Pulmonary nodules documented in this encounter Results * CT Chest wo Contrast (Generic) (04/23/2018 10:55 AM EST) Anatomical Region Laterality Modality Chest Computed Tomogra phy Impressions 04/23/2018 2:27 PM EST Impression: 1. ??New centrilobular pulmonary nodules most consistent with LCH or hypersensitivity pneumonitis. 2. ??New cavity in RIGHT upper lobe most consistent with LCH. 3. ??Growing 9 mm RIGHT lower lobe noncalcified nodule, consider follow-up noncontrast chest CT in one year or PET/CT to exclude primary lung cancer. 4. ??Old granulomatous disease, unchanged. Narrative 04/23/2018 2:27 PM EST EXAMINATION: CT CHEST WO CONTRAST [...] No focal lytic or sclerotic osseous lesion. Procedure Note Taz Crowley MD - 04/23/2018 EXAMINATION: CT CHEST WO CONTRAST (GENERIC) CLINICAL HISTORY: bilateral lower lobe nodules TECHNIQUE: Helical CT of the chest was performed without contrast.Multiplanar reformatted images were reviewed. COMPARISON: Chest CT 09/27/2016 FINDINGS: Lungs and airways: There are numerous new poorly defined subcentimeterpulmonary nodules in a predominantly centrilobular upper lung zone distribution.There is also a least one new subcentimeter cavity in the RIGHT upper lobe (series5 image 106). This combination of findings is most consistent withLangerhans cell histiocytosis (LCH) or possibly hypersensitivity pneumonitis. In addition,there is been a slight increase in size and some of the solid noncalcifiednodules, the largest increasing from 6.7 to 9.3 mm, which corresponds to avolumetric doubling time of 403 days (series 5 image 233). There is no otherinterval change. Again noted are multiple subcentimeter calcified nodules mostconsistent with old granulomatous disease. The central airways are patent. Pleura and pericardium: No effusions. Heart and vasculature: Heart size normal. Severe coronary arterycalcification. Mediastinum and hilar structures: No lymphadenopathy Allowing for the lack of intravenous contrast, the portions of theabdominal organs included in the field of view are unchanged. Osseous structure: No focal lytic or sclerotic osseous lesion. IMPRESSION Impression: 1. New centrilobular pulmonary nodules most consistent with LCH or hypersensitivity pneumonitis. 2. New cavity in RIGHT upper lobe most consistent with LCH. 3. Growing 9 mm RIGHT lower lobe noncalcified nodule, considerfollow-up noncontrast chest CT in one year or PET/CT to exclude primary lungcancer. 4. Old granulomatous disease, unchanged. César Escobar MD IMG CT ORDERABLE S documented in this encounter Visit Diagnoses Diagnosis Pulmonary nodules Other nonspecific abnormal finding of lung field documented in this encounter Care Teams Meter And Regulator Shop Supervisor Relationship Specialty Start Date End Date Shirley Yu MD [address] [place] [address] PCP - General 11/19/14 documented as of this encounter
--- OUTSIDE RECORDS SUMMARY | 2023-12-13 18:30 | XMS_ITS | Encounter Summary ---
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; Stenosis of left carotid artery Social History [...] Sign Reading Time Taken Comments Blood Pressure 176/69 08/24/2015 4:19 PM EDT Pulse 79 08/24/2015 4:19 PM EDT Temperature - - Respiratory Rate - - Oxygen Saturation - - Inhaled Oxygen Concentration - - Weight 101.6 kg (224 lb) 08/24/2015 4:19 PM EDT Height 170.2 cm (5' 7) 08/24/2015 4:19 PM EDT Body Mass Index 35.08 08/24/2015 4:19 PM EDT documented in this encounter Progress Notes * Bridget Avendano MD - 08/24/2015 5:40 PM EDT Jennifer Bob is a 54-year-old diabetic woman who is being followed for both carotid and lower extremity arterial disease. She is status post left carotid endarterectomy in 2000, and developed recurrent stenosis that has been stable at approximately 60%. She has little right carotid stenosis. Sheis status post left iliac stenting in 2005, and right common femoral to above-knee popliteal vein gr aft in 2008. Because the vein graft was small, we considered it disadvantaged, and therefore placedher on Coumadin. This was changed to Pradaxa 2 years ago because she had difficulty managing and regulating her Coumadin therapy.. She developed a mid graft stenosis that has been followed, with a peak systolic velocity approximately 330 cm/s which is not significantly changed over the past 2 years. 09/11/12 LEFT EIA stent placement (8x60mm Everflex dilated to 7mm) RIGHT UNIFORM ROOM ATTENDANT angioplasty (Milana 5x40mm to 6 elias) Stationed RIGHT UNIFORM ROOM ATTENDANT to popliteal vein bypass angiogram Proximal RIGHT bypass angioplasty She is seen today for followup. Denies changes in walking distance. Mild claudication B L>R. Denies rest pain,tissue loss, SOB, chest pain, TIA's On examination her femoral pulses are difficult to palpate because of obesity. She has palpable pedal pulses bilaterally, stronger on the right than the left. Her ABIs have not changed. The graft velocity in the right femoral-popliteal graft is actually slightly lower at the proximal anastomosis and unchanged with a 2.7 velocity step up in the proximal third of the graft. Her carotid duplex shows10% progression of the left internal carotid recurrent stenosis following prior endarterectomy withminimal stenosis on the right. We discussed whether she should continue her Pradaxa. She has a disadvantaged vein that still has residual stenosis and has not had any difficulty managing the Pradaxa. Accordingly, I would recommendthat she continue this. If her carotid stenosis progresses or becomes symptomatic we might need to consider future carotid stenting but hopefully this will not be the case. Her claudication is very mild and unchanged, so no intervention is needed for that. Unfortunately her renal function continuesto deteriorate slowly. We will see her for follow-up in 1 year. documented in this encounter Miscellaneous Notes * Addendum Note - Josee Peace RN - 08/26/2015 10:39 AM EDTAddended by: JOSEE PEACE on: 08/26/2015 10:39 AM Modules accepted: Orders documented in this encounter Plan of Treatment Upcoming Encounters Date Type Department Care Team (Late st Contact Info) Description 12/19/2023 1:00 PM EDT Tech [place] [address] Marguerite Macias 12/19/2023 3:00 PM EDT Office [place] [address] Gardenia Golden APRN [facility] [place] [address] 01/29/2024 1:[address] [place] [address] César Escobar MD [facility] [place] [address] 01/29/2024 2:30 PM EDT Office [place] [address] César Escobar MD [facility] [place] [address] documented as of this encounter Results * Unilat Bypass Graft Assess (08/15/2016 12:31 PM EDT) VB Text Report Department: Vascular Surgery Lab Patient: [id number] (JENNIFER BOB) CPT: 21316 ICD10: I73.9;I70.411 Referring Physician: BRIDGET AVENDANO ?? Indications: ??F/U R fem-ak pop bypass graft ICD10 Diagnosis Code: I73.9, I70.411 Findings: Right ? PSV (cm/s) ??EDV ??Location ? Inflow Artery ?196 ?? 29 ??Common Femoral Artery, Right ?? Inflow Anastomosis ? 369 ?? 43 ? Proximal Graft ? 340 ?? 38 ? High Thigh (Graft) ?80 ?? 13 ? Mid Graft ? 65 ?? 11 ? Low Thigh (Graft) ? 47 ?7 ? Distal Graft ?46 ?5 ? Outflow Anastomosis ? 71 ?? 11 ? Outflow Artery (Graft) ?90 ?? 11 ??Popliteal Artery Right ? Interpretation: Patent RIGHT fem-ak pop bypass graft with elevated velocities at the proximal anastomosis (PSV 369 cm/s) and a focal velocity increase in the very proximal graft (PSV 121 to 340 cm/s, 2.8x step up). PSVs on previous exam 08/24/15 at the proximal anastomosis were 309 cm/s and in the proximal graft 112 to 307 cm/s (2.7x step up). The remainder of the bypass graft is patent with no identifiable stenosis. Electronically Signed by: BRIDGET AVENDANO on 2016-08-15 03:14:49 PM VASCUBASE VB Text Report End of Report VASCUBASE 08/15/2016 12:3 1 PM EDT Bridget Avendano MD VASCULAR ORDERABLES VASCUBASE * SHEFALI, legs, multiple levels (08/15/2016 12:31 PM EDT) VB Text Report Department: Vascular Surgery Lab Patient: [id number] (JENNIFER BBO) CPT: 30680 ICD10: I73.9;I70.411 Referring Physician: BRIDGET AVENDANO ?? Indications: S/P R fem-ak pop bypass graft, PAD, ? change in ABIs Diabetes mellitus: ??Yes ICD10 Diagnosis Code: I73.9, I70.411 Findings: Right ?Pressure (mm Hg) ?? SHEFALI ??Waveform ?TBI ?? Brachial Artery ?155 ? Dorsalis Pedis (Ankle) Artery ?108 ? 0.70 ??[place]-B[place]hasi c ? Posterior Tibial (Ankle) Artery ??112 ? 0.72 ??[place]hasi c ? Great Toe ?76 ? 0.49 ?? Left ? Pressure (mm Hg) ?? SHEFALI ??Waveform ?TBI ?? Brachial Artery ?149 ? Dorsalis Pedis (Ankle) Artery ?80 ?0.52 ??[place]-B[place]hasi c ? Posterior Tibial (Ankle) Artery ??80 ?0.52 ??[place]-B[place]hasi c ? Great Toe ?57 ? 0.37 ?? Interpretation : RIGHT: Mild to moderate lower extremity arterial occlusive disease; unchanged from previous exam. LEFT: Moderate lower extremity arterial occlusive disease; unchanged from previous exam. Previous ABIs with change from previous value: Date ?RIGHT DP ?? RIGHT PT ?? RT GR TOE ??LEFT DP ?LEFT PT ?LT GR TOE ??0.93 ? 0.93 ? ---- ? 0.64 ? 0.66 ? ---- ??0.88(-.05) 0.96(+.03) 0.62 ? 0.44(-.20) 0.52(-.14) 0.38 ??0.97(+.09) 0.97(+.01) 0.65(+.03) 0.58(+.14) 0.62(+.10) 0.42(+.04) ??0.91(-.06) 1.01(+.04) 0.72(+.07) 0.64(+.06) 0.69(+.07) 0.46(+.04) ??0.93(+.02) 0.96(-.05) 0.61(-.11) 0.58(-.06) 0.61(-.08) 0.37(-.09) ??0.86(-.07) 0.93(-.03) 0.68(+.07) 0.55(-.03) 0.63(+.02) 0.38(+.01) ??0.59(-.27) 0.75(-.18) 0.58(-.10) 0.24(-.31) 0.29(-.34) 0.15(-.23) ??0.64(+.05) 0.59(-.16) 0.48(-.10) 0.45(+.21) 0.46(+.17) 0.27(+.12) ??0.63(-.01) 0.65(+.06) 0.34(-.14) 0.42(-.03) 0.44(-.02) 0.22(-.05) ??0.58(-.05) 0.65( .00) 0.43(+.09) 0.46(+.04) 0.48(+.04) 0.27(+.05) ??0.74(+.16) 0.73(+.08) 0.48(+.05) 0.53(+.07) 0.54(+.06) 0.38(+.11) Current ? 0.70(-.04) 0.72(-.01) 0.49(+.01) 0.52(-.01) 0.52(-.02) 0.37(-.01) Electronically Signed by: BRIDGET AVENDANO on 2016-08-15 03:14:57 PM VASCUBASE VB Text Report End of Report VASCUBASE 08/15/2016 12:3 1 PM EDT Brigdet Avendano MD VASCULAR ORDERABLES Performing Organization Address City/State/ZIP Co fl Phone Number [email or web address] * Cerebrovascular Duplex, Bilateral (08/15/2016 12:31 PM EDT) VB Text Report Department: Vascular Surgery Lab Patient: [id number] (JENNIFER BOB) CPT: 87935 ICD10: I65.22 Referring Physician: BRIDGET AVENDANO ?? Indications: F/U carotid disease, S/P bilateral CEA ICD10 Diagnosis Code: I65.22 Findings: ICA Proximal, Right ? PSV (cm/s): 84 ? EDV (cm/s): 17 ? ICA/CCA: 1.0 ? Plaque Structure: Echogenic ? Plaque Surface: Irregular ? %Stenosis: <15% ICA Middle, Right ? PSV (cm/s): 69 ? EDV (cm/s): 27 ? ICA/CCA: 0.9 ICA Distal, Right ? PSV (cm/s): 68 ? EDV (cm/s): 26 ? ICA/CCA: 0.8 CCA Distal, Right ? PSV (cm/s): 81 ? EDV (cm/s): 17 ? %Stenosis: <50% CCA Proximal, Right ? PSV (cm/s): 115 ? EDV (cm/s): 19 External Carotid Artery, Right ? PSV (cm/s): 120 ? EDV (cm/s): 10 ? %Stenosis: <50% Vertebral, Right ? PSV (cm/s): 68 ? EDV (cm/s): 24 ? Direction of Flow: Antegrade ICA Proximal, Left ? PSV (cm/s): 315 ? EDV (cm/s): 102 ? ICA/CCA: 3.4 ? Plaque Structure: Echogenic ? Plaque Surface: Irregular ? %Stenosis: 50-69% ICA Middle, Left ? PSV (cm/s): 115 ? EDV (cm/s): 56 ? ICA/CCA: 1.2 ICA Distal, Left ? PSV (cm/s): 90 ? EDV (cm/s): 33 ? ICA/CCA: 1.0 CCA Distal, Left ? PSV (cm/s): 94 ? EDV (cm/s): 26 ? %Stenosis: <50% CCA Proximal, Left ? PSV (cm/s): 86 ? EDV (cm/s): 18 External Carotid Artery, Left ? PSV (cm/s): 239 ? EDV (cm/s): 19 ? %Stenosis: >50% Vertebral, Left ? PSV (cm/s): 58 ? EDV (cm/s): 17 ? Direction of Flow: Antegrade Interpretation: RIGHT: Irregular plaque is present in the distal common carotid artery causing 25-30% stenosis by e-calipers. There is irregular plaque in the proximal internal carotid artery causing <15% stenosis when compared to the more distal internal carotid artery. No significant change from previous exam. The bifurcation level is in the mid neck. LEFT: Irregular plaque is present in the distal common carotid artery causing 25-30% stenosis by e-calipers. There is bulky irregular calcified plaque in the carotid bifurcation and proximal internal carotid artery causing 50-69% stenosis when compared to the more distal internal carotid artery and >50% ECA stenosis. No significant change from previous exam. The [...] ?0.80 ? 50-69% ? 315 ?? 4.10 Current Exam ? <15% ? 84 ?1.00 ? 50-69% ? 315 ?? 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
--- OUTSIDE RECORDS SUMMARY | 2023-12-13 18:30 | XMS_ITS | Encounter Summary ---
Author Organization [facility] Address [facility] [place] [address] Care Team Providers Care Assistant Paralegal Name Role Phone Shirley Yu MD Primary Care Provider [phone] Encounter Details Date Type Department Care Team (Late st Contact Info) Description 10/24/2016 8:52 AM EDT Anesthesia [place] [address] Aly Reid MD [facility] [place] [address] Anesthesia Record Procedure Summary Procedure Name Responsible Anesthesiologist Anesthesia Start Time Anesthesia Stop Time UPPER GASTROINTESTINAL ENDOSCOPY,WITH BIOPSY SINGLE OR MULTIPLE (WRVU 2.39) (Trunk) Aly Reid MD 10/24/16 0852 10/24/16 0939 Events Date Time Event Comment 10/24/2016 0852 AN Verify 0852 Start 0852 An Start Data 0854 0859 An Induction 0903 Anesthesia Ready 0930 an stop data 0936 Recovery or ICU Handoff Deidre ent care was transferred to the destination unit staff after review of the patient's medical history, current anesthetic/surgical status and plan, according to the Provider Handoff Checklist. 0939 Stop Meds Name Total Midazolam 2 mg IV Lidocaine 60 mg Propofol 380 mg Lactated Ringers 400 mL * Agents Name O2 Auxiliary Flowmeter 1 * Blood No blood administrations on file. Lines, Drains, and Airways Type Details Placement Removal (RETIRED) Peripheral IV Line - Single Lumen 10/24/16; 0849; metacarpal vein (top of hand), right; [id number]-[id number] catheter system; 22 gauge, 1 in length; Meir Mckeon CRNA; 0; 10/24/16; 1023 10/24/16 0849 by Jason Kim RN 10/24/16 1023 by Donell Catalan RN documented in this encounter Social History [...] OR Notes * Anesthesia Postprocedure Evaluation - Aly Reid - 10/24/2016 10:12 AM EDT [facility] Department of Anesthesiology Post-procedure Note Patient: Jennifer Bob Procedure Summary Date Anesthesia Start Anesthesia Stop Room / Location 10/24/16 0852 0939 [facility] END[facility] 4 / [facility] Procedure Diagnosis Surgeon Responsible Provider UPPER GASTROINTESTINAL ENDOSCOPY,WITH BIOPSY SINGLE OR MULTIPLE (WRVU 2.49) (N/A Trunk) (CONSULT; 3month fallon from 06/2016) Agapito Parmar MD Clark, [place], MD All Anesthesia Providers: Anesthesiologist: Aly Reid MD LIMO DRIVER: Meir Mckeon CRNA Last (1hr) Vitals: BP 127/61 (10/24/16 0937) Temp Pulse 74 (10/24/16 0937) Resp 16 (10/24/16 0937) SpO2 Patient Location: PACU/[facility] Level of Consciousness: Awake and Alert Pain Management: Satisfactory Analgesia PONV: None Cardiovascular Status: At Baseline Respiratory Status: At Baseline and Room Air Postoperative Fluid Status: Intravascular EUvolemia Possible Anesthetic Complications: NONE apparent at time of evaluation Final Primary Anesthesia Type: MAC (The anesthetic type performed was the same as planned.) Comments: No pain noted with propofol onset. * Anesthesia Preprocedure Evaluation - Aly Reid - 10/24/2016 8:51 AM EDT Images from the original note were not included. Pre-Anesthesia Evaluation for: Jennifer Bob a 56 y.o. female. Procedure(s): EGD, UPPER GI ENDOSCOPY Patient Active Problem List Diagnosis ??? Proliferative diabetic retinopathy of left [...] 4.26) performed by Christos Donald MD at [facility] ENDOSCOPY ??? PRO UPPER GI ENDOSCOPY, DIAGNOSTIC N/A 06/22/2016 EGD, UPPER GI ENDOSCOPY performed by Christos Donald MD at [facility] END[facility]COPY ??? RETINAL LASER SURGERY [...] SFA stents ??? VASCULAR SURGERY 1009 Right SURGICAL SALES REPRESENTATIVE-AK pop vein graft ??? YAG CAPSULOTOMY Right 02/27/15 YAG CAP OD - Nessa Social History Substance Use Topics ??? Smoking status: Former Smoker Packs/day: 0.00 Types: Cigarettes Quit date: 08/14/2014 ??? Smokeless tobacco: Never Used ??? Alcohol use No History Drug Use No Allergies Allergen Reactions ??? Sulfa (Sulfonamide Antibiotics) Other (See Comments) Renal failure, bleeding ??? Penicillins Unknown Medications: MAR and/or home medications have been reviewed. Physical Exam: Vitals: 10/24/16 0838 BP: 140/54 Pulse: 73 Resp: 18 There is no height or weight on file to calculate BMI. Airway Assessment: Mallampati: II TM distance: >3 FB Neck ROM: full Cardiovascular Assessment: Pulmonary Assessment: Dental Assessment: Comment: Many missing Misc Assessment: IV access: Peripheral line Anesthesia Plan: ASA 3 MAC, with a(n) intravenous induction DM -- A1C in 8s BS 180 this AM (on insulin infusion COPD PVD Obesity MANISH CRE 1.6 Concern over propofol burning sensation at IV site Region - Other Informed Consent: Anesthetic plan and risks discussed with patient. Plan discussed with LIMO DRIVER. PAT Staff Note documented in this encounter Miscellaneous Notes * Addendum Note - Aly Reid - 10/24/2016 12:13 PM EDT Addendum created 10/24/16 1213 by Aly Reid MD Sign clinical note documented in this encounter Plan of Treatment Upcoming Encounters Date Type Department Care Team (Late st Contact Info) Description 12/19/2023 1:00 PM EDT [place] [phone] Marguerite Macias 12/19/2023 3:00 PM EDT Office [place] [phone] Gardenia Golden, MOSAIC TILER [facility] [place] [address] 01/29/2024 1:[address] [place] [phone] César Escobar MD [facility] [place] [address] 01/29/2024 2:30 PM EDT Office [place] [phone] César Escobar MD [facility] [place] [address] documented as of this encounter Visit Diagnoses Not on filedocumented in this encounter Administered Medications Inactive Administered Medications - up to 3 most recent administrations Medication Order MAR Action Action Date Dose Rate Site lactated Ringers infusion CONTINUOUS PRN, Starting on Mon10/24/16 at 0849, Until Mon10/24/16 at 0939, Anesthesia Intra-op New Bag 10/24/2016 8:49 AM EDT lidocaine (PF) (XYLOCAINE) 100 mg/5 mL (2 %) injection PRN, Starting on Mon10/24/16 at 0859, Until Mon10/24/16 at 0939, Anesthesia Intra-op, Routine Given 10/24/2016 8:59 AM EDT 60 mg midazolam (PF) (VERSED) 1 mg/mL multi-dose injection PRN, Starting on Mon10/24/16 at 0854, Until Mon10/24/16 at 0939, Sleep, Anesthesia Intra-op, Routine Given 10/24/2016 8:54 AM EDT 2 mg propofol (DIPRIVAN) 10 mg/mL bolus injection (Anesthesia) PRN, Starting on Mon10/24/16 at 0859, Until Mon10/24/16 at 0939, Anesthesia Intra-op Given 10/24/2016 9:24 AM EDT 30 mg Given 10/24/2016 9:20 AM EDT 50 mg Given 10/24/2016 9:15 AM EDT 50 mg documented in this encounter Care Teams Assistant Paralegal Relationship Specialty Start Date End Date Shirley Yu MD [address] [place] [address] PCP - General 11/19/14 documented as of this encounter
--- OUTSIDE RECORDS SUMMARY | 2023-12-13 18:30 | XMS_ITS | Encounter Summary ---
Author Organization [facility] [place] [address] Care Team Providers Care Grader Tender Name Role Phone Shirley Yu MD Primary Care Provider [phone] Reason for Visit * Reason Comments Procedure PRP-OS Encounter Details Date Type Department Care Team (Late st Contact Info) Description 05/22/2015 12:45 PM EST Procedure [place] [address] Timothy Vega MD [facility] DR [place] [address] Proliferative diabetic retinopathy of left eye (Primary Dx) Social History Tobacco Use Types [...] as of this encounter Progress Notes * Timothy Vega MD - 05/22/2015 1:52 PM EST Good pattern of PRP laser now both eyes with laser supplemented today left eye. Return 3-4 months for dilated exam of both eyes. Imaging if decrease in vision or findings warrant study Stable status post panretinal laser for coagulation for proliferative diabetic retinopathy each eye. Small tufted neovascularization on disc without progression. Still however, consider additional panretinal laser photocoagulation in the next couple of months. Increasing posterior capsular opacification both eyes. Dr. Szymanski in the next couple of weeks for consideration of YAG laser right eye and possible left eye. Mild macular drusen No evidence of diabetic macular edema either eye Okay right eye is documented in this encounter Plan of Treatment Upcoming Encounters Date Type Department Care Team (Late st Contact Info) Description 12/19/2023 1:00 PM EDT Tech Visit [place] [phone] Marguerite Macias 12/19/2023 3:00 PM EDT Office [place] [address] Gardenia Golden, LADARIUS [facility] [place] [address] 01/29/2024 1:[address] [place] [address] César Escobar MD [facility] [place] [address] 01/29/2024 2:30 PM EDT Office [place] [phone] César Escobar MD [facility] [place] [address] documented as of this encounter Procedures Procedure Name Priority Date/Time Associated Diagnosis Comments DESTRUCTION PROG RETINOPATHY PHOTOCOAG - OS - LEFT EYE Routine 05/22/2015 2:34 PM EST Proliferative diabetic retinopathy of left eye documented in this encounter Results * Laser Panretinal Photocoagulation - OS - Left Eye (05/22/2015 2:34 PM EST) Anatomical Region Laterality Modality Other Narrative 05/22/2015 2:34 PM EST Pre-Op Patient understands the risks and benefits of the treatment as outlined on the consent. Anesthesia Topical anesthesia was used. Anesthesia medications included Proparacaine. Laser Information The type of laser was argon. Color was green. The duration in seconds was 200.0. Laser power was 200.0. Total spots was 650. The spot size was 500 microns. Post-op The patient tolerated the procedure well. There were no complications. The patient received written and verbal post procedure care education. Timothy Vega MD OPHTHALMOLOGY S [facility] ORDERABLES documented in this encounter Visit Diagnoses Diagnosis Proliferative diabetic retinopathy of left eye- Primary Type II or unspecified type diabetes mellitus with ophthalmic manifestations, not stated as uncontrolled documented in this encounter Care Teams Grader Tender Relationship Specialty Start Date End Date Shirley Yu MD [address] [place] [address] PCP - General 11/19/14 documented as of this encounter
--- OUTSIDE RECORDS SUMMARY | 2023-12-13 18:30 | XMS_ITS | Encounter Summary ---
Author [facility] Address [facility] [place] [address] Care Team Providers Care Physical Damage Appraiser Name Role Phone Shirley Yu MD Primary Care Provider [phone] Reason for Visit * Reason Comments Carotid Stenosis * Consultation (Routine) - Closed Specialty Diagnoses / Procedures Referred By Contpietro mcleod Referred To Contact Vascular Surgery Diagnoses claudication disease, peripheral vascular nos Shirley Yu MD [address] [place] [address] [facility] Vascular Surg [address] [place] [address] Referral ID Status Reason Start Date Expiration Date V isits Requested Visits Authorized [id number] Closed [facility] 07/21/2016 07/21/2017 2 2 Encounter Details Date Type Department Care Team (Late st Contact Info) Description 08/15/2016 2:30 PM EDT Office [place] [address] Mario Avendano MD [facility] DR VASCULAR SURGERY [address] Intermittent claudication; PAD (peripheral artery disease); Stenosis of left carotid artery Social History Tobacco Use Types Packs/Day Years Used Date Smoking Tobacco: Every Day Cigarettes Last attempted to quit: 08/14/2014 Smokeless Tobacco: Never Alcohol Use Standard Drinks/Week Comments No 0 (1 standard drink = 0.6 oz pur e alcohol) Sex and Gender Information Value Date Recorded Sex Assigned at Not on file Gender Identity Not on file Sexual Orientation Not on file documented as of this encounter Last Filed Vital Signs Vital Sign Reading Time Taken Comments Blood Pressure 146/58 08/15/2016 2:13 PM EDT Pulse 72 08/15/2016 2:13 PM EDT Temperature - - Respiratory Rate - - Oxygen Saturation - - Inhaled Oxygen Concentration - - Weight 105.7 kg (233 lb) 08/15/2016 2:13 PM EDT Height 168.9 cm (5' 6.5) 08/15/2016 2:13 PM EDT Body Mass Index 37.04 08/15/2016 2:13 PM EDT documented in this encounter Progress Notes * Mario Avendano MD - 08/15/2016 2:30 PM EDT Jennifer Bob is a 55-year-old diabetic woman who is being followed for both carotid and lower extremity arterial disease. She is status post left carotid endarterectomy in 2000, and developed recurrent stenosis that has been stable at approximately 60%. She has little right carotid stenosis. Sheis status post left iliac stenting in 2005, and right common femoral to above-knee popliteal vein gr aft in 2008. She underwent LEFT EIA stent placement (8x60mm Everflex dilated to 7mm) and RIGHT TOBACCO SIZER angioplasty (Milana 5x40mm to 6 elias) in 2012. Because the vein graft was small, we considered it disadvantaged, and therefore placed her on Coumadin. This was changed to Pradaxa 2 years ago because she had difficulty managing and regulating her Coumadin therapy. She developed a proximal graft stenosis that has been followed, evaluated with a diagnostic arteriogram in 2014 because of a peak systolic velocity approximately 330 cm/s but the stenosis does not appear to be severe at the time of arteriography, so was not treated. She is seen today for followup. Denies changes in walking distance. She can walk more than one block. Her claudication is approximately equal in both legs, perhaps slightly worse in the right becauseof some buttock involvement. Denies rest pain,tissue loss, SOB, chest pain, TIA's On examination her femoral pulses are difficult to palpate because of obesity. She has palpable pedal pulses bilaterally, stronger on the right than the left. Her ABIs have not changed. Her carotid duplex shows a PSV of 315 cm/s inthe left internal carotid recurrent stenosis, following prior endarterectomy, which has not changed over the past year, with minimal stenosis on the right. She has elevated peak systolic velocity in the common femoral artery on the right just proximal to her vein graft and in the vein graft in its proximal segment. These velocities have very little since 2015 between 309-394 cm/s in the femoral, and 307-357 cm/s in the proximal graft, being in the mid range of these values today. We discussed whether she should continue her [...] so no intervention is needed for that. We will see her for follow-up in 1 year. documented in this encounter Plan of Treatment Upcoming Encounters Date Type Department Care Team (Late st Contact Info) Description 12/19/2023 1:00 PM EDT Tech [place] [address] Marguerite Macias 12/19/2023 3:00 PM EDT Office [place] [address] Gardenia Golden APRN [facility] DR VASCULAR SURGERY [address] 01/29/2024 1:[address] [place] [address] César Escobar MD [facility] [place] [address] 01/29/2024 2:30 PM EDT Office [place] [address] César Escobar MD [facility] DR THORACIC SURGERY [address] documented as of this encounter Visit Diagnoses Diagnosis Intermittent claudication Peripheral vascular disease, unspecified PAD (peripheral artery disease) Peripheral vascular disease, unspecified Stenosis of left carotid artery Occlusion and stenosis of carotid artery without mention of cerebral infarction documented in this encounter Care Teams Physical Damage Appraiser Relationship Specialty Start Date End Date Shirley Yu MD [address] [place] [address] PCP - General 11/19/14 documented as of this encounter
--- OUTSIDE RECORDS SUMMARY | 2023-12-13 18:30 | XMS_ITS | Encounter Summary ---
Author Organization [facility] [address] Care Team Providers Care Wheat Cleaner Name Role Phone Shirley Yu MD Primary Care Provider [phone] Encounter Details Date Type Department Care Team (Late Contact Info) Description 10/24/2016 Orders Only [place] [phone] Agapito Parmar MD [facility] [place] [address] Esophageal candidiasis Social History Tobacco Use Types Packs/Day Years [...] PM EDT Tech [place] [phone] Marguerite Macias 12/19/2023 3:00 PM EDT Office Visit [place] [address] Gardenia Golden APRN [facility] [place] [place] [address] 01/29/2024 1:[address] [place] [phone] César Escobar MD [facility] [place] [address] 01/29/2024 2:30 PM EDT Office Visit [place] [address] César Escobar MD [facility] [place] [place] [address] documented as of this encounter Visit Diagnoses Diagnosis Esophageal candidiasis Candidiasis of the esophagus documented in this encounter Care Teams Wheat Cleaner Relationship Specialty Start Date End Date Shirley Yu MD [address] [place] [address] PCP - General 11/19/14 documented as of this encounter
--- OUTSIDE RECORDS SUMMARY | 2023-12-13 18:30 | XMS_ITS | Encounter Summary ---
Author Organization [facility] Address [facility] [place] [address] Care Team Providers Care Guard Captain Name Role Phone Shirley Yu MD Primary Care Provider Encounter Details Date Type Department Care Team (Late st Contact Info) Description 06/22/2016 2:52 PM EDT Anesthesia Event [place] [address] James Modi MD [facility] [place] [address] Lisbet Wilkes CRNA [facility] [place] [address] Anesthesia Record Procedure Summary Procedure Name Responsible Anesthesiologist Anesthesia Start Time Anesthesia Stop Time EGD, UPPER GI ENDOSCOPY (WRVU 2.09) (Trunk) James Modi MD 06/22/16 1452 06/22/16 1547 Events Date Time Event Comment 06/22/2016 1424 1452 AN Verify 1452 Start 1452 An Start Data 1457 An Induction 1500 Anesthesia Ready 1501 Procedure Start 1547 an stop data 1547 Recovery or ICU Handoff Deidre ent care was transferred to the destination unit staff after review of the patient's medical history, current anesthetic/surgical status and plan, according to the Provider Handoff Checklist. 1547 Stop Meds Name Total Midazolam 2 mg IV Lidocaine 100 mg Propofol 260 mg Ondansetron 8 mg Lactated Ringers 500 mL * Agents Name O2 * Blood No blood administrations on file. Lines, Drains, and Airways Type Details Placement Removal (RETIRED) Peripheral IV Line - Single Lumen 06/22/16; 1447; median cubital vein (antecubital fossa), right; [id number] catheter system; 20 gauge; Humaira Watkins RN; distraction, intradermal injection; no longer indicated, removed per policy/procedure; 06/22/16; 16406/22/16 1447 by Corinne Moran RN 06/22/16 1641 by Xochitl Donaldson RN documented in this encounter Social History [...] OR Notes * Anesthesia Postprocedure Evaluation - James Modi MD - 06/22/2016 4:07 PM EDT [facility] Department of Anesthesiology Post-procedure Note Patient: Jennifer Bob Procedure Summary Date Anesthesia Start Anesthesia Stop Room / Location 06/22/16 1452 1547 [facility] ENDO 3 / [facility] Procedure Diagnosis Surgeon Responsible Provider EGD, UPPER GI ENDOSCOPY (N/A Trunk); EGD, TRANSORAL; WITH ABLATION OF TUMOR(S), POLYP(S), OR OTHER LESION(S) (WRVU 4.26) (N/A Esophagus) (Barretts RFA) Christos Donald MD Herrick, Michael D, MD All Anesthesia Providers: Anesthesiologist: Luisito Peña MD; James Modi MD SPONGE MAKER: Eliu Marshall CRNA Last (1hr) Vitals: BP 130/51 (06/22/16 1553) Temp Pulse 74 (06/22/16 1553) Resp 16 (06/22/16 1553) SpO2 93 % (06/22/16 1553) Patient Location: PACU/[facility] Level of Consciousness: Awake and Alert Pain Management: Satisfactory Analgesia PONV: None Cardiovascular Status: Hemodynamically Stable Respiratory Status: Stable Respiratory Status Postoperative Fluid Status: Intravascular EUvolemia Possible Anesthetic Complications: NONE apparent at time of evaluation Final Primary Anesthesia Type: MAC (The anesthetic type performed was the same as planned.) Comments: Doing well in recovery Reports no burning from propofol on induction which she is happy about JAMES MODI MD * Anesthesia Preprocedure Evaluation - Luisito Peña MD - 06/22/2016 2:24 PM EDT Pre-Anesthesia Evaluation for: Jennifer Bob a 55 y.o. female. Procedure(s): EGD, UPPER GI ENDOSCOPY [...] SFA stents ??? VASCULAR SURGERY 1009 Right OUTREACH TEAM MEMBER-AK pop vein graft ??? YAG CAPSULOTOMY Right 02/27/15 YAG CAP OD - Nessa Social History Substance Use Topics ??? Smoking status: Former Smoker Packs/day: 0.00 Types: Cigarettes Quit date: 08/14/2014 ??? Smokeless tobacco: Never Used ??? Alcohol use No History Drug Use Not on file Allergies Allergen Reactions ??? Sulfa (Sulfonamide Antibiotics) Other (See Comments) Renal failure, bleeding ??? Penicillins Unknown Medications: MAR and/or home medications have been reviewed. Physical Exam: There were no vitals filed for this visit. There is no height or weight on file to calculate BMI. Airway Assessment: Mallampati: II Proven 2007 Cardiovascular Assessment: Pulmonary Assessment: Dental Assessment: Misc Assessment: Anesthesia Plan: ASA 3 MAC, with a(n) intravenous induction Region - Other Informed Consent: Anesthetic plan and risks discussed with patient. Plan discussed with SPONGE MAKER. PAT Staff Note documented in this encounter Plan of Treatment Upcoming Encounters Date Type Department Care Team (Late st Contact Info) Description 12/19/2023 1:00 PM EDT Tech [place] [phone] Marguerite Macias 12/19/2023 3:00 PM EDT Office Visit [place] [address] Gardenia Golden, LADARIUS [facility] [place] [address] 01/29/2024 1:[address] [place] [address] César Escobar MD [facility] [place] [address] 01/29/2024 2:30 PM EDT Office Visit [place] [address] César Escobar MD [facility] [place] [address] documented as of this encounter Visit Diagnoses Not on filedocumented in this encounter Administered Medications Inactive Administered Medications - up to 3 most recent administrations Medication Order MAR Action Action Date Dose Rate Site lactated ringers infusion CONTINUOUS PRN, Starting on Mon06/22/16 at 1452, Until Mon06/22/16 at 1547, Anesthesia Intra-op New Bag 06/22/2016 2:52 PM EDT lidocaine (PF) (XYLOCAINE) 100 mg/5 mL (2 %) injection PRN, Starting on Mon06/22/16 at 1456, Until Mon06/22/16 at 1547, Anesthesia Intra-op, Routine Given 06/22/2016 2:56 PM EDT 100 mg midazolam (PF) (VERSED) 1 mg/mL multi-dose injection PRN, Starting on Mon06/22/16 at 1452, Until Mon06/22/16 at 1633, Sleep, Anesthesia Intra-op, Routine Given 06/22/2016 2:52 PM EDT 2 mg ondansetron (ZOFRAN) injection PRN, Starting on Mon06/22/16 at 1515, Until Mon06/22/16 at 1547, Nausea, Anesthesia Intra-op, Routine Given 06/22/2016 3:15 PM EDT 8 mg propofol (DIPRIVAN) 10 mg/mL bolus injection (Anesthesia) PRN, Starting on Mon06/22/16 at 1458, Until Mon06/22/16 at 1547, Anesthesia Intra-op Given 06/22/2016 3:23 PM EDT 20 mg Given 06/22/2016 3:18 PM EDT 40 mg Given 06/22/2016 3:13 PM EDT 40 mg documented in this encounter Care Teams Guard Captain Relationship Specialty Start Date End Date Shirley Yu MD [address] [place] [address] PCP - General 11/19/14 documented as of this encounter
--- OUTSIDE RECORDS SUMMARY | 2023-12-13 18:30 | XMS_ITS | Encounter Summary ---
[place] [address] Care Team Providers Care Welding Machine Tender Name Role Phone Shirley Yu MD Primary Care Provider [phone] Encounter Details Date Type Department Care Team (Late st Contact Info) Description 09/25/2016 Ancillary [place] [phone] César Escobar MD [facility] [place] [address] Social History Tobacco Use Types Packs/Day Years [...] PM EDT Tech [place] [phone] Marguerite Macias 12/19/2023 3:00 PM EDT Office [place] [address] Gardenia Golden, LADARIUS [facility] [place] [address] 01/29/2024 1:[address] [place] [address] César Escobar MD [facility] [place] [address] 01/29/2024 2:30 PM EDT Office [place] [address] César Escobar MD [facility] [place] [address] documented as of this encounter Procedures Procedure Name Priority Date/Time Associated Diagnosis Comments FILM LIBRARY STORAGE ONLY DX CHEST Routine 09/25/2016 12:00 AM EDT documented in this encounter Results * Film Library- Storage Only DX Chest (09/25/2016 12:00 AM EDT) Narrative [facility] - 04/20/2018 11:23 AM EST This exam is for storage only and is auto-finalizing. César Escobar MD IMG FILM LIBRARY ORDERABLES [place], [place] documented in this encounter Visit Diagnoses Not on filedocumented in this encounter Care Teams Welding Machine Tender Relationship Specialty Start Date End Date Shirley Yu MD [address] [place] [address] PCP - General 11/19/14 documented as of this encounter
--- OUTSIDE RECORDS SUMMARY | 2023-12-13 18:30 | XMS_ITS | Encounter Summary ---
Author Organization [facility] [place] [address] Care Team Providers Care Bulldozer Operator Name Role Phone Shirley Yu MD Primary Care Provider [phone] Encounter Details Date Type Department Care Team (Late Contact Info) Description 10/24/2016 Orders [place] [address] Ailyn Levy MD [facility] [place] [address] Social History Tobacco Use Types Packs/Day Years [...] PM EDT Tech [place] [address] Marguerite Macias 12/19/2023 3:00 PM EDT Office [place] [address] Gardenia Golden APRN [facility] [place] [address] 01/29/2024 1:[address] [place] [address] César Escobar MD [facility] [place] [address] 01/29/2024 2:30 PM EDT Office [place] [address] César Escobar MD [facility] [place] [address] documented as of this encounter Visit Diagnoses Not on filedocumented in this encounter Care Teams Bulldozer Operator Relationship Specialty Start Date End Date Shirley Yu MD [address] [place] [address] PCP - General 11/19/14 documented as of this encounter
--- OUTSIDE RECORDS SUMMARY | 2023-12-13 18:30 | XMS_ITS | Encounter Summary ---
Author Organization [facility] [place] [address] Care Team Providers Care Sawdust Machine Operator Name Role Phone Shirley Yu MD Primary Care Provider [phone] Reason for Visit * Reason Comments Diabetes * Consultation (Routine) - Closed Specialty Diagnoses / Procedures Referred By Dominik t Referred To Contact Endocrinology Diagnoses Diabetes t1dm Procedures consult and treat Paulino Oakley MD [facility] [place] [address] Sandi Haskins LD [facility] [place] [address] Referral ID Status Reason Start Date Expiration Date Visits Re quested Visits Authorized [id number] Closed 08/28/2015 08/27/2016 1 1 Encounter Details Date Type Department Care Team (Late st Contact Info) Description 01/02/2017 11:00 AM EDT Office Visit Endocrinology at [facility] [place] [address] Lluvia Oropeza APRN [facility] [place] [address] Type 1 diabetes mellitus with stage 3 chronic kidney disease Social History Tobacco Use [...] Sign Reading Time Taken Comments Blood Pressure 147/67 01/02/2017 10:50 AM EDT Pulse 67 01/02/2017 10:50 AM EDT Temperature - - Respiratory Rate - - Oxygen Saturation - - Inhaled Oxygen Concentration - - Weight 106.1 kg (234 lb) 01/02/2017 10:50 AM EDT Height 168.9 cm (5' 6.5) 01/02/2017 10:50 AM ED T Body Mass Index 37.21 01/02/2017 10:50 AM EDT documented in this encounter Patient Instructions * Patient Instructions* Lluvia Oropeza APRN - 01/02/2017 11:00 AM EDT Always check glucose before driving to make certain that it is above 120 Vive Nano Consider lowering basal rate at midnight to 1.25 or 1.2 to avoid low glucose at 3AM documented in this encounter Progress Notes * Lluvia Oropeza APRN - 01/02/2017 11:00 AM EDT REASON FOR VISIT: 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 Previous visit to endocrinology on 08/24/2015. Also: followup hypothyroidism, depression, sleep apnea, overweight. BRIEF HISTORY: Presents and states she will be moving out this weekend. Her children will help her move. This is the second time she has from her and she states she knows she will not be returning after this move. COMPLICATIONS: Retinopathy, nephropathy. DATE OF DIAGNOSIS OF DIABETES: At age 15. DIABETES REGIMEN: MiniMed 523 pump, basal rates at 12 a.m. 1.3, 4:30 of 1.2, 12 a.m. of 1.5, 4 p.m. of 1.35, total basal 31.65. Insulin to carb 1:8, correction factor 30, target glucose 100-110. Total daily doses range from 43.15 to 57.3. REVIEW OF SYSTEMS: Depression and mood: States she knows she will have less stress when she is living alone and then eventually, she plans to live with daughter's family. Eyes: Followed closely by saw maker. No recent headaches or chest pain or shortness of breath. No recent GI symptoms. Appetite is fair. Sleep Pattern: Uses CPAP mask. Extremities: Has some joint pains. PAST MEDICAL HISTORY: Has had carotid surgery. Has stents in her legs. PHYSICAL EXAM: Appearance: She is overweight with a large central girth. Weight 234 pounds. Blood pressure 147/67. Eyes: No retinopathy with GreenLight exam. Neck: No thyromegaly or lymphadenopathy. Heart: Regular rate and rhythm. Lungs are clear to auscultation. Feet: Skin is normal. Pulses are normal. Neuro: Normal sensation to 10 Gs of pressure. Hemoglobin A1c of 8.7%. SBGM: 5 times a day. Reason for higher frequency testing is to avoid severe hypoglycemia, especially since she will be living alone and she has hypoglycemic unawareness. Prescription sent for One-Touch Ultra test strips 5 times a day. Prescription also sent for Glucagon. Reviewed Glucagon use. Advised her to teach family members how to use glucagon. 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 Advised to always check glucose levels before driving to make certain that it is above 120. She does always carry treatment for possible low glucose level. IMMUNIZATIONS UPDATE: Flu vaccine given. She plans to return to office as advised by PCP. She has the prescriptions for pump supplies sent to PCP office. Reviewed glucose results from memory. Advised that she may need to lower 12 a.m. basal rate to 1.25 to avoid low glucose levels at 3 a.m. or to 1.2. This was a 39-minute office visit with 28 minutes spent counseling [id number] with patient in the management of glucose levels, reviewing prevention and treatment of hypoglycemia, advising to always check glucose levels before driving. She did not find using the Sensor helpful to manage glucose levels. Recent Results (from the past 72 hour(s)) Basic Metabolic Panel (non-fasting) Result Value Ref Range Glucose Lvl 241 (H) 65 - 199 mg/dL BUN 26 (H) 8 - 18 mg/dL Creatinine 1.50 (H) 0.70 - 1.20 mg/dL Sodium 138 135 - 145 mmol/L Potassium 5.4 (H) 3.5 - 5.0 mmol/L Chloride 101 98 - 107 mmol/L CO2 22 22 - 31 mmol/L Anion Gap 15 5 - 15 mmol/L Calcium 9.3 8.5 - 10.5 mg/dL Estimated GFR 36 (L) >=60 Hemoglobin A1c Result Value Ref Range Hemoglobin A1C 8.7 (H) 4.3 - 5.6 % Est Avg Gluc 203 mg/dL TSH Result Value Ref Range TSH 2.09 0.27 - 4.20 mlU/ML LDL Cholesterol, Direct Result Value Ref Range LDL Chol Direct 109 <=190 mg/dL documented in this encounter Plan of Treatment Upcoming Encounters Date Type Department Care Team (Late st Contact Info) Description 12/19/2023 1:00 PM EDT Tech [place] [address] Marguerite Macias 12/19/2023 3:00 PM EDT Office [place] [address] Gardenia Golden APRN [facility] [place] [place] [address] 01/29/2024 1:[address] [place] [address] César Escobar MD [facility] DR THORACIC SURGERY [place], [place] [phone] 01/29/2024 2:30 PM EDT Office [place] [address] César Escobar MD [facility] DR THORACIC SURGERY [place], [place] [address] documented as of this encounter Results * LDL Cholesterol, Direct (01/02/2017 10:33 AM EDT) LDL Cholesterol, Direct 109 <=190 mg/dL [facility] Blood specimen (specimen) 01/02/2017 10:33 AM EDT 01/02/2017 10:46 AM EDT Narrative Resulting Agency Comment Spec In Lab Lluvia E Bilotta SENIOR JAVA PROGRAMMER CHEMISTRY ORDERABLE S Performing Organization Address [facility] Co de Phone Number [facility] [place] [address] * TSH (01/02/2017 10:33 AM EDT) Thyroid Stimulating Hormone 2.09 0.27 - 4.20 mlU/ML [facility] Blood specimen (specimen) 01/02/2017 10:33 AM EDT 01/02/2017 10:46 AM EDT Narrative Resulting Agency Comment Spec In Lab Lluvia E Bilotta SENIOR JAVA PROGRAMMER CHEMISTRY ORDERABLE S Performing Organization Address [facility] Co de Phone Number [facility] [place] [address] * (ABNORMAL) Hemoglobin A1c (01/02/2017 10:33 AM EDT) Hemoglobin A1c 8.7(H) 4.3 - 5.6 % [facility] Comment: Reference Range: 4.3 - [...] Mellitus, Diabetes Care 2013; 36: Suppl. 1, D87-91 Estimated Average Glucose 203 mg/dL [facility] Comment: eAG equivalents for HbA1c [...] into estimated average glucose values. ??Diabetes Care 2008:31(8):8773-8007. Blood specimen (specimen) 01/02/2017 10:33 AM EDT 01/02/2017 10:46 AM EDT Narrative Resulting Agency Comment Spec In Lab Lluvia Oropeza APRN CHEMISTRY ORDERABLE S [facility] [place] [address] * (ABNORMAL) Basic Metabolic Panel (non-fasting) (01/02/2017 10:33 AM EDT) Glucose 241(H) 65 - 199 mg/dL [facility] Comment:Diabetes: >=200 mg/d L plus symptoms Blood Urea Nitrogen 26(H) 8 - 18 mg/dL [facility] Creatinine 1.50(H) 0.70 - 1.20 mg/dL [facility] Comment: Please note that the pediatric reference intervals supplied above were not validated at [facility]. Results from pediatric patients should be interpreted in conjunction to the patient's age, height and muscle mass. Sodium 138 135 - 145 mmol/L [facility] Potassium 5.4(H) 3.5 - 5.0 mmol/L [facility] Comment: Please note: ??Patients with WBC >100,000 may have falsely elevated Potassium levels. ??For accurate Potassium quantification in these patients send serum separator tube (gold top) for subsequent determinations. ??Contact the Clinical Chemistry Laboratory if there are any questions. Chloride 101 98 - 107 mmol/L [facility] Carbon Dioxide 22 22 - 31 mmol/L [facility] Anion Gap 15 5 - 15 mmol/L [facility] Calcium 9.3 8.5 - 10.5 mg/dL [facility] Est Glomerular Filtration Rate 36(L) >=60 [facility] Comment: This estimated GFR (eGFR) value was calculated using the MDRD equation which has been validated on patients between the ages of 18 and 70. The MDRD should not be used to assess kidney function in patients < 18 years of age or in patients with extremes of body mass, or in patients with acute kidney failure. This value should be multiplied by 1.2 for patients. For further information please copy and paste the following links into your internet browser. [email or web address] Blood specimen (specimen) 01/02/2017 10:33 AM EDT 01/02/2017 10:46 AM EDT Narrative Resulting Agency Comment Spec In Lab Lluvia Oropeza SENIOR JAVA PROGRAMMER CHEMISTRY ORDERABLE S [facility] [place] [address] documented in this encounter Visit Diagnoses Diagnosis Type 1 diabetes mellitus with stage 3 chronic kidney disease Type I (juvenile type) diabetes mellitus with renal manifestations, not stated as uncontrolled documented in this encounter Care Teams Sawdust Machine Operator Relationship Specialty Start Date End Date Shirley Yu MD [address] [place] [address] PCP - General 11/19/14 documented as of this encounter
--- OUTSIDE RECORDS SUMMARY | 2023-12-13 18:30 | XMS_ITS | Encounter Summary ---
[place] [address] Care Team Providers Care Industrial Cafeteria Manager Name Role Phone Shirley Yu MD Primary Care Provider [phone] Encounter Details Date Type Department Care Team (Late st Contact Info) Description 08/16/2016 Orders [place] [address] Huan Strauss RN Carotid stenosis, asymptomatic, bilateral; PAD (peripheral artery disease); Claudication Social History Tobacco Use Types Packs/Day Years [...] PM EDT Tech Visit [place] [address] Marguerite Macias 12/19/2023 3:00 PM EDT Office [place] [address] Gardenia GoldenLADARIUS [facility] [address] VASCULAR SURGERY [place], [place] [address] 01/29/2024 1:[address] [place] [address] César Escobar MD [facility] [place] [address] 01/29/2024 2:30 PM EDT Office [place] [address] César Escobar MD [facility] [place] [address] documented as of this encounter Results * Unilat Bypass Graft Assess (01/05/2018 1:29 PM EDT) VB Text Report Department: Vascular Surgery Lab Patient: [id number] (JENNIFER SNYDER) CPT: 15479 ICD10: I73.9;I77.1 Referring Physician: BRIDGET AVENDANO ?? Indications: Patient with h/o right femoral [...] noted to be patent. Notification: Ofelia Polanco LADARIUS was informed of these preliminary findings. Electronically Signed by: HUGO CUELLAR on 2018-01-07 05:55:12 PM [facility] VB Text Report End of Report [facility] 01/05/2018 1:29 PM EDT Bridget Avendano MD VASCULAR ORDERABLES [facility] documented in this encounter Visit Diagnoses Diagnosis Carotid stenosis, asymptomatic, bilateral PAD (peripheral artery disease) Peripheral vascular disease, unspecified Claudication Peripheral vascular disease, unspecified documented in this encounter Care Teams Industrial Cafeteria Manager Relationship Specialty Start Date End Date Shirley Yu MD [address] [place] [address] PCP - General 11/19/14 documented as of this encounter
--- OUTSIDE RECORDS SUMMARY | 2023-12-13 18:30 | XMS_ITS | Encounter Summary ---
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; Hypothyroidism Social History Tobacco Use Types Packs/Day Years [...] PM EDT Tech [place] [address] Marguerite Macias 12/19/2023 3:00 PM EDT Office [place] [address] Gardenia Golden, LADARIUS [facility] [place] [address] 01/29/2024 1:[address] [place] [address] César Escobar MD [facility] [place] [address] 01/29/2024 2:30 PM EDT Office [place] [address] César Escobar MD [facility] THORACIC SURGERY [place], [place] [address] documented as of this encounter Procedures Procedure Name Priority Date/Time Associated Diagnosis Comments TSH Routine 08/24/2015 2:23 PM EDT Hypothyroidism LDL CHOLESTEROL, DIRECT Routine 08/24/2015 2:23 PM EDT 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 Optimal: ?<100 mg/dL ?? Near Optimal/Above Optimal: ?? 100-129 mg/dL ?? Borderline high: ?130-159 mg/dL ?? High: ? 160-189 mg/dL ?? Very high: ?>yz=446 mg/dL [facility] 2001: 285(00):8322-4365 Blood specimen (specimen) 08/24/2015 2:23 PM EDT 08/24/2015 2:28 PM EDT Narrative Resulting Agency Comment Spec In Lab Paulino Oakley MD CHEMISTRY ORDERABLES Performing Organization Address [facility] Co de Phone Number [facility] [place] [address] * TSH (08/24/2015 2:23 PM EDT) Thyroid Stimulating Hormone 0.95 0.27 - 4.20 mcIU/mL [facility] Blood specimen (specimen) 08/24/2015 2:23 PM EDT 08/24/2015 2:28 PM EDT Narrative Resulting Agency Comment Spec In Lab Paulino Oakley MD CHEMISTRY ORDERABLES Performing Organization Address [facility] Co de Phone Number [facility] [place] [address] * (ABNORMAL) Hemoglobin A1c (08/24/2015 2:23 PM EDT) Hemoglobin A1c 9.6(H) 4.3 - 5.6 % [facility] Comment: Reference Range: 4.3 - [...] Mellitus, Diabetes Care 2013; 36: Suppl. 1, S67-74 Estimated Average Glucose 229 mg/dL [facility] Comment: eAG equivalents for HbA1c percentages: HbA1c(%) ?eAG(mg/dL) 6.0 ?126 6.5 ?140 7.0 ?154 7.5 ?169 8.0 ?183 8.5 ?197 9.0 ?212 9.5 ?226 10.0 ? 240 Limitations: The eAG calculation has not been validated on women, individuals below 18 years old and above 70 years old, and individuals with hemoglobinopathies. Additional resources are available on the ADA website: [email or web address] Chandra WELLS, Nikky J, Quinn R, et al. ??Translating the A1C assay into estimated average glucose values. ??Diabetes Care 2008:31(8):9568-0429. 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
--- OUTSIDE RECORDS SUMMARY | 2023-12-13 18:30 | XMS_ITS | Encounter Summary ---
Author Organization [facility] [place] [address] Care Team Providers Care Liquid Natural Gas Plant Operator Name Role Phone Shirley Yu MD Primary Care Provider [phone] Reason for Visit * Reason Onset Date Comments Medication Refill 03/23/2015 Encounter Details Date Type Department Care Team (Late Contact Info) Description 03/23/2015 Refill [place] [address] Lluvia Oropeza [facility] [place] [address] Social History Tobacco Use Types Packs/Day Years [...] PM EDT Tech [place] [address] Marguerite Macias 12/19/2023 3:00 PM EDT Office Visit [place] [address] Gardenia Golden APRN [facility] [place] [address] 01/29/2024 1:[address] [place] [address] César Escobar MD [facility] [place] [address] 01/29/2024 2:30 PM EDT Office Visit [place] [address] César Escobar MD [facility] [place] [address] documented as of this encounter Visit Diagnoses Not on filedocumented in this encounter Care Teams Liquid Natural Gas Plant Operator Relationship Specialty Start Date End Date Shirley Yu MD [address] [place] [address] PCP - General 11/19/14 documented as of this encounter
--- OUTSIDE RECORDS SUMMARY | 2023-12-13 18:30 | XMS_ITS | Encounter Summary ---
[place] [address] Care Team Providers Care Qa Analyst Name Role Phone Shirley Yu MD Primary Care Provider [phone] Encounter Details Date Type Department Care Team (Latest Contact Info) Description 08/24/2015 12:25 PM EDT - 08/24/2015 11:59 PM EDT Hospital En[place] [phone] Ban Brown RVT PAD (peripheral artery disease); PVOD (pulmonary veno-occlusive disease) Discharge Disposition: Home Social History Tobacco [...] Sig Dispensed Refills Start Date End Date citalopram (CeleXA) 20 mg Tablet Take by mouth. 08/13/2012 Diabetic Supplies, Miscellan. Misc Form faxed to [employer] for pump supplies. 100 each 12 03/23/2015 losartan (COZAAR) 100 mg Tablet Take 50 mg by mouth daily. 08/11/2014 aspirin 81 mg EC tablet Take 81 mg by mouth daily. insulin lispro (HUMALOG) 100 unit/mL injection Inject 55-60 Units subcutaneously continuous. Via insulin pump amLODIPine (NORVASC) 10 mg Tablet Take 10 mg by mouth daily. 01/05/2018 carvedilol (COREG) 3.125 mg Tablet Take 3.125 mg by mouth 2 times daily (with meals). 04/21/2022 dabigatran (PRADAXA) 150 mg Capsule Take 1 capsule by mouth 2 times daily. 180 capsule 3 08/24/2015 02/08/2019 blood sugar diagnostic strips (CONTOUR NEXT STRIPS) Strip 1 each by Other route 4 times daily. minimed insulin pump Dx code E10.65 400 each 3 02/20/2015 01/02/2017 levothyroxine (SYNTHROID) 125 mcg Tablet Take 125 mcg by mouth daily. 09/18/2014 01/11/2017 cilostazol (PLETAL) 100 mg tablet Take 1 tablet by mouth 2 times daily. 180 tablet 3 10/15/2012 02/04/2019 CYANOCOBALAMIN, VITAMIN B-12, (VITAMIN B-12 ORAL) Take by mouth daily. 01/05/2018 Magnesium 250 mg Tab Take by mouth daily. 022 citalopram (CELEXA) 20 mg tablet Take 20 mg by mouth daily. 01/02/2017 simvastatin (ZOCOR) 40 mg tablet Take 40 mg by mouth nightly. 01/02/2017 documented as of this encounter Plan of Treatment Upcoming Encounters Date Type Department Care Team (Late st Contact Info) Description 12/19/2023 1:00 PM EDT Tech [place] [phone] Marguerite Macias 12/19/2023 3:00 PM EDT Office [place] [address] Gardenia Golden APRN [facility] [place] [address] 01/29/2024 1:[address] [place] [address] César Escobar MD [facility] [place] [address] 01/29/2024 2:30 PM EDT Office Visit [facility] at [facility] [place] [address] César Escobar MD [facility] [place] [address] documented as of this encounter Procedures Procedure Name Priority Date/Time Associated Diagnosis Comments CAROTID DUPLEX, BILATERAL Routine 08/24/2015 1:08 PM EDT PAD (peripheral artery disease) UNILATERAL BYPASS GRAFT ASSESS Routine 08/24/2015 12:28 PM EDT PAD (peripheral artery disease) SHEFALI, LEGS, MULTIPLE LEVELS Routine 08/24/2015 12:28 PM EDT PVOD (pulmonary veno-occlusive disease) documented in this encounter Results * Cerebrovascular Duplex, Bilateral (08/24/2015 1:08 PM EDT) VB Text Report Department: Vascular Surgery Lab Patient: [id number] (JENNIFER WINTERS) CPT: 91763 ICD10: I73.9;I65.22 Referring Physician: ANNE-MARIE WALTERS ?? Indications: s/p left CEA 2000 and right CEA 2004; ? restenosis ICD10 Diagnosis Code: I65.22 Findings: ICA Proximal, Right ? PSV (cm/s): 83 ? EDV (cm/s): 36 ? ICA/CCA: 0.8 ? Plaque Structure: Echogenic ? Plaque Surface: Irregular ? %Stenosis: <15% ICA Distal, Right ? PSV (cm/s): 64 ? EDV (cm/s): 22 ? ICA/CCA: 0.6 CCA Distal, Right ? PSV (cm/s): 102 ? EDV (cm/s): 18 ? %Stenosis: <50% CCA Proximal, Right ? PSV (cm/s): 84 ? EDV (cm/s): 10 External Carotid Artery, Right ? PSV (cm/s): 105 ? EDV (cm/s): 16 ? %Stenosis: <50% Vertebral, Right ? PSV (cm/s): 81 ? EDV (cm/s): 24 ? Direction of Flow: Antegrade ICA Proximal, Left ? PSV (cm/s): 315 ? EDV (cm/s): 92 ? ICA/CCA: 4.1 ? Plaque Structure: Echogenic ? Plaque Surface: Irregular ? %Stenosis: 50-69% ICA Distal, Left ? PSV (cm/s): 96 ? EDV (cm/s): 40 ? ICA/CCA: 1.3 CCA Distal, Left ? PSV (cm/s): 76 ? EDV (cm/s): 22 ? %Stenosis: <50% CCA Proximal, Left ? PSV (cm/s): 81 ? EDV (cm/s): 17 External Carotid Artery, Left ? PSV (cm/s): 243 ? EDV (cm/s): 28 ? %Stenosis: >50% Vertebral, Left ? PSV (cm/s): 66 ? EDV (cm/s): 21 ? Direction of Flow: Antegrade Interpretation: RIGHT: Plaque in the mid/distal common carotid artery causes 25-35% stenosis by e-caliper measurement. There is irregular plaque in the carotid bulb and minimal smooth plaque in the proximal internal carotid artery causing <15% stenosis when compared to the more distal internal carotid artery. No significant change compared to previous exam 05-25-11. The bifurcation level is in the mid neck. LEFT: Plaque in the mid/distal common carotid artery causes 25-35% stenosis by e-caliper measurement. There is bulky irregular plaque in the carotid bifurcation and proximal internal carotid artery causing 50-69% stenosis when compared to the more distal internal carotid artery and >50% ECA stenosis. Progression of stenosis compared to previous exam on 05-25-11. The bifurcation level is in the mid neck. Vertebral Artery Data: Patent vertebral arteries with normal antegrade Doppler waveforms and velocities bilaterally. Previous Carotid Studies: Date ?RIGHT ICA Stenosis ??PSV ?? Ratio ?? LEFT ICA Stenosis ?? PSV ?? Ratio ? <15% ? 76 ?0.92 ? 50-59% ? 225 ?? 2.50 ? <15% ? 83 ?0.88 ? 50-59% ? 241 ?? 2.59 Current Exam ? <15% ? 83 ?0.81 ? 50-69% ? 315 ?? 4.14 Electronically Signed by: HUGO CUELLAR on 2015-08-29 02:09:21 PM [facility] VB Text Report End of Report [facility] 08/24/2015 1:08 PM EDT Anne-Marie Walters MD VASCULAR ORDERABLES [facility] * SHEFALI, legs, multiple levels (08/24/2015 12:28 PM EDT) VB Text Report Department: Vascular Surgery Lab Patient: [id number] (JENNIFER WINTERS) CPT: 09596 ICD10: I73.9;I27.0 Referring Physician: BRIDGET AVENDANO ?? Indications: PVOD; history of right COMPOSITION WORKER-AK POP BPG, left iliac stenting; ? change in ABIs Diabetes mellitus: Yes ICD10 Diagnosis Code: I73.9 Findings: Right ?Pressure (mm Hg) ?? SHEFALI ??Waveform ? TBI ?? Brachial Artery ?165 ? Dorsalis Pedis (Ankle) Artery ?122 ? 0.74 ??Biphasic-Rev ? Posterior Tibial (Ankle) Artery ??121 ? 0.73 ??Biphasic-Rev ? Great Toe ?80 ?0.48 ?? Left ? Pressure (mm Hg) ?? SHEFALI ??Waveform ?TBI ?? Brachial Artery ?165 ? Dorsalis Pedis (Ankle) Artery ?87 ?0.53 ??Cook-Biphasic ? Posterior Tibial (Ankle) Artery ??89 ?0.54 ??Cook-Biphasic ? Great Toe ?63 ? 0.38 ?? Interpretation: RIGHT: Mild to moderate lower extremity arterial occlusive disease. Overall, no significant change compared to previous exam 11-18-14 (increase in DP SHEFALI, no significant change in PT SHEFALI or TBI). LEFT: Moderate lower extremity arterial occlusive disease. No significant change compared to previous exam 11-18-14. Previous ABIs with change from previous value: [...] ??0.58(-.05) 0.65( .00) 0.43(+.09) 0.46(+.04) 0.48(+.04) 0.27(+.05) Current ? 0.74(+.16) 0.73(+.08) 0.48(+.05) 0.53(+.07) 0.54(+.06) 0.38(+.11) Electronically Signed by: BRIDGET AVENDANO on 2015-08-24 02:40:55 PM VASCUBASE VB Text Report End of Report VAS[facility] 08/24/2015 12:2 8 PM EDT Bridget Avendano MD VASCULAR ORDERABLES [facility]ASCU[facility] * Unilat Bypass Graft Assess (08/24/2015 12:28 PM EDT) VB Text Report Department: Vascular Surgery Lab Patient: [id number] (JENNIFER WINTERS) CPT: 32689 ICD10: I73.9 Referring Physician: ANNE-MARIE WALTERS ?? Indications: History of right COMPOSITION WORKER-AK pop BPG; stenosis surveillance ICD10 Diagnosis Code: I73.9 Findings: Right ? PSV (cm/s) ??EDV ??Location ? Inflow Artery ?196 ?? 18 ??Common Femoral Artery, Right ? Inflow Anastomosis ? 309 ?? 25 ??Common Femoral Artery, Right ? Proximal Graft ? 307 ?0 ? High Thigh (Graft) ?76 ?6 ? Mid Thigh (Graft) ? 54 ?8 ? Distal Graft ?58 ?7 ? Outflow Anastomosis ? 97 ?? 19 ??Popliteal Artery, Above Knee Right ?? Outflow Artery (Graft) ?86 ?? 15 ??Popliteal Artery, Above Knee Right ?? Interpretation: Patent right COMPOSITION WORKER-AK pop bypass graft with elevated velocity at the proximal anastomosis and focal velocity increase in the proximal graft from 112 to 307 cm/s, a 2.7 x step up. The remainder of the bypass graft is patent with no identifiable stenosis. Decrease in velocity at the proximal anastomosis (UBA=106 cm/s) compared to previous exam (HXJ=963 cm/s) on 11-19-14. Similar focal velocity step up in the proximal graft (2.7 x) compared to previous exam (2.8 x) on 11-19-14. Electronically Signed by: HUGO CUELLAR on 2015-08-29 02:29:13 PM [facility]AS[facility] VB Text Report End of Report VASCU[facility] 08/24/2015 12:2 8 PM EDT Anne-Marie Walters MD VASCULAR ORDERABLES [facility] documented in this encounter Visit Diagnoses Diagnosis PAD (peripheral artery disease) Peripheral vascular disease, unspecified PVOD (pulmonary veno-occlusive disease) Other pulmonary embolism and infarction documented in this encounter Care Teams Qa Analyst Relationship Specialty Start Date End Date Shirley Yu MD [address] [place] [address] PCP - General 11/19/14 documented as of this encounter
--- OUTSIDE RECORDS SUMMARY | 2023-12-13 18:30 | XMS_ITS | Encounter Summary ---
[place] [address] Care Team Providers Care Broke Man Name Role Phone Shirley Yu MD Primary Care Provider [phone] Encounter Details Date Type Department Care Team (Late st Contact Info) Description 04/17/2016 Ancillary Procedure [place] [address] César Escobar MD [facility] [place] [address] Social History Tobacco Use Types Packs/Day Years [...] EDT Tech [place] [address] Marguerite Macias 12/19/2023 3:00 PM EDT Office Visit [place] [address] Gardenia Golden APRN [facility] [place] [address] 01/29/2024 1:[address] [place] [phone] César Escobar MD [facility] [place] [address] 01/29/2024 2:30 PM EDT Office Visit [place] [phone] César Escobar MD [facility] [place] [address] documented as of this encounter Procedures Procedure Name Priority Date/Time Associated Diagnosis Comments FILM LIBRARY STORAGE ONLY DX CHEST Routine 04/17/2016 12:00 AM EST documented in this encounter Results * Film Library- Storage Only DX Chest (04/17/2016 12:00 AM EST) Narrative [facility] - 04/20/2018 11:19 AM EST This exam is for storage only and is auto-finalizing. César Escobar MD IMG FILM LIBRARY ORDERABLES [place], [place] documented in this encounter Visit Diagnoses Not on filedocumented in this encounter Care Teams Broke Man Relationship Specialty Start Date End Date Shirley Yu MD [address] [place] [address] PCP - General 11/19/14 documented as of this encounter
--- OUTSIDE RECORDS SUMMARY | 2023-12-13 18:30 | XMS_ITS | Encounter Summary ---
[place] [address] Care Team Providers Care Pole Cutter Name Role Phone Shirley Yu MD Primary Care Provider [phone] Reason for Visit * Reason Onset Date Comments Other 03/19/2015 Encounter Details Date Type Department Care Team (Late st Contact Info) Description 03/19/2015 Telephone [place] [phone] Cassy Peralta, RN Other Social History Tobacco Use Types [...] encounter Miscellaneous Notes * Telephone Encounter - Cassy Peralta, RN - 03/19/2015 8:49 AM EST Received voicemail message from Jennifer Robb's who states that [employer] needs a prescription for Jennifer's infusion sets. States that she is going to be completely out. Placed call to Cezar, let him know will refax prescription to [employer] as was previously faxed on 03/03/15 and confirmation received. Asked that Cezar give a call back if there is any further problems, Bill agrees with plan. Prescription refaxed to [employer]. documented in this encounter Plan of Treatment Upcoming Encounters Date Type Department Care Team (Late st Contact Info) Description 12/19/2023 1:00 PM EDT Tech [place] [phone] Marguerite Macias 12/19/2023 3:00 PM EDT Office Visit Vascular Surgery at [place] [phone] Gardenia Golden APRN [facility] [place] [address] 01/29/2024 1:[address] Scan at [place] [phone] César Escobar MD [facility] [place] [address] 01/29/2024 2:30 PM EDT Office Visit [place] [phone] César Escobar MD [facility] [place] [address] documented as of this encounter Visit Diagnoses Not on filedocumented in this encounter Care Teams Pole Cutter Relationship Specialty Start Date End Date Shirley Yu MD [address] [place] [address] PCP - General 11/19/14 documented as of this encounter
--- OUTSIDE RECORDS SUMMARY | 2023-12-13 18:30 | XMS_ITS | Encounter Summary ---
[place] [address] Care Team Providers Care Partition Making Machine Operator Name Role Phone Shirley Yu MD Primary Care Provider [phone] Encounter Details Date Type Department Care Team (Latest Contact Info) Description 06/24/2015 2:00 PM EDT Laboratory Appointment Lab [address] [place] [address] CKD (chronic kidney disease) stage [...] PM EDT Tech [place] [address] Marguerite Macias 12/19/2023 3:00 PM EDT Office [place] [address] Gardenia Golden, [facility] [place] [address] 01/29/2024 1:[address] [place] [address] César Escobar MD [facility] [address] 01/29/2024 2:30 PM EDT Office [place] [address] César Escobar MD [facility] THORACIC SURGERY [place], [place] [phone] documented as of this encounter Procedures Procedure Name Priority Date/Time Associated Diagnosis Comments PTH Routine 06/24/2015 4:54 PM EDT CKD (chronic kidney disease) stage 3, GFR 30-59 ml/min URIC ACID Routine 06/24/2015 4:54 PM EDT CKD (chronic kidney disease) stage 3, GFR 30-59 ml/min PHOSPHORUS Routine 06/24/2015 4:54 PM EDT CKD (chronic kidney disease) stage 3, GFR 30-59 ml/min BASIC METABOLIC PANEL Routine 06/24/2015 4:54 PM EDT CKD (chronic kidney disease) stage 3, GFR 30-59 ml/min documented in this encounter Results * Phosphorus (06/24/2015 4:54 PM EDT) Phosphorus 4.0 2.5 - 4.5 mg/dL [facility] Blood specimen (specimen) 06/24/2015 4:54 PM EDT 06/24/2015 5:02 PM EDT Narrative Resulting Agency Comment Spec In Lab Nathaly Tucker MD CHEMISTRY ORDERABLE S [facility] [place] [address] * Uric acid (06/24/2015 4:54 PM EDT) [facility] [address] Uric Acid 6.5 2.5 - 6.5 mg/dL [facility] Blood specimen (specimen) 06/24/2015 4:54 PM EDT 06/24/2015 5:02 PM EDT Narrative Resulting Agency Comment Spec In Lab Nathaly Tucker MD CHEMISTRY ORDERABLE S Performing Organization Address City/[facility]/ZIP Co de Phone Number [facility] [place] [address] * (ABNORMAL) PTH (06/24/2015 4:54 PM EDT) [facility] [address] Parathyroid Hormone 85(H) 15 - 65 pg/mL [facility] Blood specimen (specimen) 06/24/2015 4:54 PM EDT 06/24/2015 5:02 PM EDT Narrative Resulting Agency Comment Spec In Lab Nathaly Tucker MD CHEMISTRY ORDERABLE S Performing Organization Address [facility] Co de Phone Number [facility] [place] [address] * (ABNORMAL) Basic Metabolic Panel (non-fasting) (06/24/2015 4:54 PM EDT) [facility] [address] Glucose 316(H) 65 - 199 mg/dL [facility] Comment:Diabetes: >=200 mg/d L plus symptoms Blood Urea Nitrogen 27(H) 8 - 18 mg/dL [facility] Creatinine 1.65(H) 0.70 - 1.20 mg/dL [facility] Comment: Please note that the pediatric reference intervals supplied above were not validated at [facility]. Results from pediatric patients should be interpreted in conjunction to the patient's age, height and muscle mass. Sodium 140 135 - 145 mmol/L [facility] Potassium 5.3(H) 3.5 - 5.0 mmol/L [facility] Comment: Please note: ??Patients with WBC >100,000 may have falsely elevated Potassium levels. ??For accurate Potassium quantification in these patients send serum separator tube (gold top) for subsequent determinations. ??Contact the Clinical Chemistry Laboratory if there are any questions. Chloride 103 98 - 107 mmol/L [facility] Carbon Dioxide 22 22 - 31 mmol/L [facility] Anion Gap 15 5 - 15 mmol/L [facility] Calcium 9.1 8.5 - 10.5 mg/dL [facility] Est Glomerular Filtration Rate 32(L) >=60 [facility] Comment: This estimated GFR [...] the following links into your internet browser. [email or web address] Blood specimen (specimen) 06/24/2015 4:54 PM EDT 06/24/2015 5:02 PM EDT Narrative Resulting Agency Comment Spec In Lab Nathaly Tucker MD CHEMISTRY ORDERABLE S [facility] [place] [address] documented in this encounter Visit Diagnoses Diagnosis CKD (chronic kidney disease) stage 3, GFR 30-59 ml/min Chronic kidney disease, Stage III (moderate) documented in this encounter Care Teams Partition Making Machine Operator Relationship Specialty Start Date End Date Shirley Yu MD [address] [place] [address] PCP - General 11/19/14 documented as of this encounter
--- OUTSIDE RECORDS SUMMARY | 2023-12-13 18:30 | XMS_ITS | Encounter Summary ---
[place] [address] Care Team Providers Care Room Server Name Role Phone Shirley Yu MD Primary Care Provider [phone] Encounter Details Date Type Department Care Team (Late Contact Info) Description 03/13/2015 Notes [place] [address] Cassy Peralta, RN Social History Tobacco Use Types Packs/Day [...] as of this encounter Progress Notes * Cassy Peralta, RN - 03/13/2015 2:49 PM EST Jennifer calls in and states that [employer] needs copy of most recent office note. Printed and faxed. documented in this encounter Plan of Treatment Upcoming Encounters Date Type Department Care Team (Late Contact Info) Description 12/19/2023 1:00 PM EDT Tech Visit [place] [address] Marguerite Macias 12/19/2023 3:00 PM EDT Office Visit [place] [phone] Gardenia Golden, [employer]PER[employer] [facility] [place] [address] 01/29/2024 1:[address] [place] [phone] César Escobar MD [facility] [place] [address] 01/29/2024 2:30 PM EDT Office Visit [place] [phone] César Escobar MD [facility] [place] [address] documented as of this encounter Visit Diagnoses Not on filedocumented in this encounter Care Teams Room Server Relationship Specialty Start Date End Date Shirley Yu MD [address] [place] [address] PCP - General 11/19/14 documented as of this encounter
--- OUTSIDE RECORDS SUMMARY | 2023-12-13 18:30 | XMS_ITS | Encounter Summary ---
[facility] [place] [address] Care Team Providers Care Bingo Caller Name Role Phone Shirley Yu MD Primary Care Provider [phone] Encounter Details Date Type Department Care Team (Latest Contact Info) Description 06/22/2016 2:11 PM EDT - 06/22/2016 5:30 PM EDT Hospital Encounter [place] [id number] Crhistos Donald MD [facility] [place] [address] Discharge Disposition: Home Social History Tobacco Use [...] Sign Reading Time Taken Comments Blood Pressure 136/61 06/22/2016 4:00 PM EDT Pulse 74 06/22/2016 3:53 PM EDT Temperature - - Respiratory Rate 16 06/22/2016 3:53 PM EDT Oxygen Saturation 91% 06/22/2016 4:28 PM EDT Inhaled Oxygen Concentration - - Weight - - Height - - Body Mass Index - - documented in this encounter Discharge Instructions * Discharge Instructions* Xochitl Donaldson, TAMEKA - 06/22/2016 3:56 PM EDT UPPER GI ENDOSCOPY with THERMAL ABLATION WHAT TO EXPECT AFTER THE PROCEDURE After the test you may feel a little more gassy or bloated than usual, this is normal. ACTIVITY Because of the sedation that you received Your judgement and reaction time are affected ?? Go home and rest quietly for the remainder of the day. You may resume your normal activities tomorrow. ?? Change from one position to the next slowly. You may lose your balance unexpectedly ?? Be careful on stairs, as you may be unsteady on your feet. FOR THE NEXT 24 HRS ?? DO NOT DRIVE OR OPERATE ANY MACHINERY ?? DO NOT DRINK ALCOHOLIC BEVERAGES ?? DO NOT SIGN LEGAL DOCUMENTS ?? If you are a smoker: DO NOT SMOKE WHILE YOU ARE ALONE Diet Start with clear liquids and progress to full liquids over the next 24 to 36 hours. Then go On To soft for next 3-4 days. If all is well then you can go to as tolerated ?? Drink plenty of fluids ( unless otherwise told not to) Medications You may have a mild sore throat and some chest discomfort. Ice chips, popsicles, over the counter throat lozenges, tylenol (acetaminophen) or spray may help numb your throat or control the discomfort. If pain medication has been prescribed, use it as indicated. The sore throat should resolve on it's own. This procedure should not cause a fever. IV SITE-- slight redness or tenderness is normal, you can use warm compresses if you get concerned.If the tenderness +/or redness increases or foul drainage and a red streak occurs, please contact your PCP immediately. WHEN SHOULD YOU CALL FOR HELP? Call 911 anytime you think that you need emergency care. For example, call if: You passed out (lost consciousness). You cough up blood. You vomit blood or what looks like coffee grounds. You pass maroon or very bloody stools. Call your healthcare provider or seek immediate medical attention if: You have trouble swallowing. You have belly pain. Your stools are black or tarlike or have streaks of blood. You are sick to your stomach or cannot keep fluids down. Watch closely for changes in your health, and be sure to contact your doctor IF Your throat still hurts after a day or two You do not get better as expected. Monday-Monday Same Day Endo [phone] [id number]-8p Otherwise contact [phone] and ask to speak to the process development engineer occupational health and safety manager Follow-up care is a parham part of your treatment and safety. Be sure to make and go to all appointments, and call your doctor if you are having problems. Instructions have been reviewed and patient expresses understanding * Patient Instructions* Christos Donald MD - 06/22/2016 4:19 PM EDT Please see Recommendations in the Provation procedure report which is documented in the procedural note in E-DH. documented in this encounter Medications at Time of Discharge Medication Sig Dispensed Refills Start Date End Date Magnesium Oxide 500 mg magnesium tablet Take 500 mg by mouth daily. 01/07/2016 citalopram (CeleXA) 20 mg Tablet Take by mouth. 08/13/2012 Diabetic Supplies, [employer]. Misc Form faxed to [employer] for pump supplies. 100 each 12 03/23/2015 losartan (COZAAR) 100 mg Tablet Take 50 mg by mouth daily. 08/11/2014 aspirin 81 mg EC tablet Take 81 mg by mouth daily. insulin lispro (HUMALOG) 100 unit/mL injection Inject 55-60 Units subcutaneously continuous. Via insulin pump insulin lispro (HumaLOG) Solution 24/7 01/07/2016 3 amLODIPine (NORVASC) 10 mg Tablet Take 10 [...] nightly. 01/02/2017 documented as of this encounter H&P Notes * Ferdinand Holloway MD - 06/22/2016 2:52 PM EDT Patient Name: Jennifer Bbo Patient Age: 55 y.o. Birthdate: 1960 Admit date: 06/22/2016 Attending Physician: Christos Donald MD . Gastroenterology and Hepatology Pre-Procedure History and Physical Exam Procedure: EGD: Indication: barretts with high grade dysplasia Patient Active Problem List Diagnosis Code ??? 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 ASA 2 - Patient with mild systemic disease with no functional limitations Sedation Plan: anesthesia Risks and benefits of the procedure explained to the patient. Consent signed. documented in this encounter Miscellaneous Notes * Op Note - Christos Donald MD - 06/22/2016 4:19 PM EDT [facility] Operative Note Patient Name: Jennifer Bob : [id number] MR#: [id number] Case Date: 06/22/2016 Surgeon: Surgeon(s) and Role: * Christos Donald MD - Primary * Ferdinand Holloway MD - Fellow Preoperative diagnosis: Barretts RFA Postoperative diagnosis: * No post-op diagnosis entered * Procedure(s) (LRB): EGD, UPPER GI ENDOSCOPY (N/A) EGD, TRANSORAL; WITH ABLATION OF TUMOR(S), POLYP(S), OR OTHER LESION(S) (WRVU 4.26) (N/A) Anesthesia: MAC Full procedure note is documented under the Procedure section of eDH. documented in this encounter Plan of Treatment Upcoming Encounters Date Type Department Care Team (Late st Contact Info) Description 12/19/2023 1:00 PM EDT Tech [place] [address] Marguerite Macias 12/19/2023 3:00 PM EDT Office Visit [place] [address] Gardenia Golden, LADARIUS [facility] DR VASCULAR SURGERY [place], [place] [id number] 01/29/2024 1:[address] [place] [address] César Escobar MD [facility] DR THORACIC SURGERY [place], [place] [id number] 01/29/2024 2:30 PM EDT Office [place] [address] César Escobar MD [facility] [place] [address] documented as of this encounter Procedures Procedure Name Priority Date/Time Associated Diagnosis Comments EGD, TRANSORAL; WITH ABLATION OF TUMOR(S), POLYP(S), OR OTHER LESION(S) (WRVU 4.01) 06/22/2016 2:52 PM EDT Barretts RFA EGD, UPPER GI ENDOSCOPY (WRVU 2.09) 06/22/2016 2:52 PM EDT Barretts RFA POCT GLUCOSE Routine 06/22/2016 2:45 PM EDT UPPER GI ENDOSCOPY Routine 06/22/2016 2: 40 PM EDT POCT FINGERSTICK GLUCOSE STAT 06/22/2016 documented in this encounter Results * POCT Glucose (06/22/2016 2:45 PM EDT) Pathologist [facility] Glucose, POC 191 65 - 199 mg/dL [facility] Comment: Supplemental ranges: <140 mg/dL before meals <180 mg/dL all other times of the day Blood specimen (specimen) 06/22/2016 2:45 PM EDT 06/22/2016 2:45 PM EDT Christos Donald MD POINT OF CARE TEST O JODIE [facility] [place] [address] * UPPER GI ENDOSCOPY (06/22/2016 2:40 PM EDT) [facility] UPPER GI ENDOSCOPY [facility] Endoscopy ___ Procedure Date: 06/22/2016 2:40 PM ? Patient Name: Jennifer Bob ? Date of : 1960 ? Age: 55 ? Order #: [id number] ? Instrument Name: [id number] ? ___ Procedure: ? 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 Christos Donald MD, Sai Santana ? TAMEKA Sullivan, Rambo Lopez, Ferdinand Soriano ? MD Jewel Referring : ?Shirley Yu MD, Roberto Mar, ? DO Medicines: ? Propofol per Anesthesia Complications: ? No immediate complications. ___ Procedure: ? Pre-Anesthesia Assessment: ? - Prior to the procedure, a History ? and Physical was performed, and ? patient medications, allergies and ? sensitivities were reviewed. The ? patient's tolerance of previous ? anesthesia was reviewed. ? - The risks and benefits of the ? procedure and the sedation options ? and risks were discussed with the ? patient. All questions were answered ? and informed consent was obtained. ? - ASA Grade Assessment: III - A ? patient with severe systemic disease. ? - Using IV propofol under the ? supervision of an anesthesiologist ? was determined to be medically ? necessary for this procedure based on ? severe comorbidity (greater than ASA ? Grade II) and prolonged procedure ? requiring deep sedation. ? The procedure, indications, benefits, ? risks and alternatives were explained ? to the patient. Specifically ? discussed were potential ? complications including, but not ? limited to, bleeding, perforation, ? infection, missing a cancer, and ? adverse medication reactions. The ? Endoscope was introduced through the ? mouth, and advanced to the second ? part of duodenum. The patient ? tolerated the procedure well. The ? patient tolerated the procedure well. ? Findings: ? The esophagus and gastroesophageal junction were ? examined with white light and narrow band imaging ? (NBI) from a forward view and retroflexed position. ? There were esophageal mucosal changes suspicious for ? short-segment Lopez's esophagus. These changes ? involved the mucosa at the upper extent of the ? gastric folds (40 cm from the incisors) extending to ? the Z-line (39 cm from the incisors). No visible ? abnormalities were present. The maximum longitudinal ? extent of these esophageal mucosal changes was 1 cm ? in length (C0M1). Volumetric Laser Endomicroscopy ? (VLE) was performed by inserting the imaging catheter ? (20 mm balloon) through the working channel of the ? endoscope. The VLE imaging probe was positioned so ? that the stomach tissue (cardia) was seen in the ? distal portion of the VLE scan. The GEJ location was ? identified in the VLE scan, and correlated to the ? endoscopic position of the GEJ (40 cm from the ? incisors). The VLE scan was continuously imaged for 6 ? cm, scanning the esophagus to a depth of 3 mm. The ? VLE scan was reviewed and areas of suspicion noted ? and correlated to the anatomic location seen on ? endoscopy so that suspicious areas could be further ? examined by biopsy and histology. Suspicious areas ? were not seen. ? A small hiatal hernia was present. ? Otherwise normal stomach including retroflex view of ? cardia and fundus. ? The examined duodenum was normal. ? Focal radiofrequency ablation of Lopez's esophagus ? was performed. With the endoscope in place, the ? position and extent of the Lopez's mucosa and the ? anatomic landmarks including proximal and distal ? extent of Lopez's mucosa and top of gastric folds ? were noted. Endoscopic visualization identified an ? ablation site. The Lopez's mucosa was irrigated ? with water. Gastric and esophageal contents were ? suctioned. The endoscope was then removed from the ? patient. The Barrx-90 radiofrequency ablation ? catheter was attached to the tip of the endoscope. ? The endoscope with the attached radiofrequency ? ablation catheter was then passed transorally under ? direct vision into the esophagus and advanced to the ? areas of Lopez's mucosa. The areas included tongues ? and circumferential areas of Lopez's mucosa. The ? radiofrequency ablation catheter was placed in ? contact with the surface of the Lopez's mucosa ? under direct visualization and energy was applied ? twice at 12 J/cm2. Ablation was repeated in a ? likewise fashion to the entire area of suspected ? Lopez's mucosa. The ablation zone was cleaned of ? coagulative debris. The ablation catheter and ? endoscope were then removed and the catheter was ? cleaned. The catheter and endoscope were reinserted ? into the esophagus. A second round of ablation was ? then performed. Energy was applied twice at 12 J/cm2 ? to retreat the areas of Lopez's epithelium that had ? been treated with the first series of ablation. The ? areas of the esophagus where Lopez's mucosa had ? been ablated were examined. Areas of Lopez's ? esophagus were completely ablated. ? Impression: ?- Esophageal mucosal changes ? suspicious for short-segment ? Lopez's esophagus without obvious ? focal abnormalities by VLE. Treated ? with radiofrequency ablation. ? - Small hiatal hernia. ? - Normal examined duodenum. ? - No specimens collected. Recommendation: ?- Observe patient's clinical course. ? - Twice daily PPI. ? - Repeat upper endoscopy in 3 months ? for follow-up of Lopez's ablation. ? Attending Participation: ? I was present and participated during the entire ? procedure, including non-parham portions. ? Christos Donald MD 06/22/2016 4:19:25 PM This report has been signed electronically. Number of Addenda: 0 Note Initiated On: 06/22/2016 2:40 PM PROVATION 06/22/2016 2:40 PM EDT Shirley Yu MD GENERAL SURGICAL ORD ERABLES PROVATION * POCT Fingerstick Glucose (06/22/2016) Glucose, POC 191 60 - 199 mg/dl 06/22/2016 Christos Donald MD POINT OF CARE TEST O RDERABLES documented in this encounter Visit Diagnoses Not on filedocumented in this encounter Administered Medications Inactive Administered Medications - up to 3 most recent administrations Medication Order MAR Action Action Date Dose Rate Site lactated ringers infusion 100 mL/hr, Intravenous, CONTINUOUS, Starting on Mon06/22/16 at 1500, Until Mon06/22/16 at 1642, Endoscopy (Day of Procedure) New Bag 06/22/2016 2:50 PM EDT 100 mL/hr 100 mL/hr documented in this encounter Active and Recently Administered Medications Times are shown in EDT. Continuous Medication Order 06/20/2016 06/21/2016 06/22/2016 lactated ringers infusion (CANCELED) 100 mL/hr, Intravenous, CONTINUOUS, Starting on Mon06/22/16 at 1500, Until Mon06/22/16 at 1642, Endoscopy (Day of Procedure) 1450 (New Bag - Prov ider: Corinne Moran RN) documented in this encounter Care Teams Bingo Caller Relationship Specialty Start Date End Date Shirley Yu MD [address] [place] [address] PCP - General 11/19/14 documented as of this encounter
--- OUTSIDE RECORDS SUMMARY | 2023-12-13 18:30 | XMS_ITS | Encounter Summary ---
Author Organization [facility] [place] [address] Care Team Providers Care Keel Press Operator Name Role Phone Shirley Yu MD Primary Care Provider [phone] Encounter Details Date Type Department Care Team (Latest Contact Info) Description 10/24/2016 8:02 AM EDT - 10/24/2016 10:30 AM EDT Hospital En[place] [address] Agapito Parmar MD [facility] [place] [address] Discharge Disposition: Home Social History Tobacco Use [...] Sign Reading Time Taken Comments Blood Pressure 127/61 10/24/2016 9:37 AM EDT Pulse 74 10/24/2016 9:37 AM EDT Temperature - - Respiratory Rate 16 10/24/2016 9:37 AM EDT Oxygen Saturation 94% 10/24/2016 8:38 AM EDT Inhaled Oxygen Concentration - - Weight - - Height - - Body Mass Index - - documented in this encounter Discharge Instructions * Discharge Instructions* Donell Catalan RN - 10/24/2016 9:39 AM EDT You may have received medication before and/or during your procedure which effects judgement and reaction time. Do not drive, operate machinery, drink alcoholic beverages, or make important decisions for 24 hours. Be careful on stairs, as you may be unsteady on your feet. You may eat a regular diet as tolerated. Do not smoke if you are alone. IV site -- slight redness or tenderness is normal. You may use a warm compress. If tenderness and redness increases or foul drainage occurs please contact your M.D. Please call [phone] before 5 pm with problems, questions or concerns. After 5pm call [phone] and ask to speak with the steamship agent horizontal resaw operator. Discharge instructions reviewed with patient who expresses understanding. * Attachments The following attachments cannot be sent through Care Everywhere. * EGD (UPPER ENDOSCOPY): POST-OP (SURINAMESE) documented in this encounter Medications at Time of Discharge Medication Sig Dispensed Refills Start Date End Date Magnesium Oxide 500 mg magnesium tablet Take 500 mg by mouth daily. 01/07/2016 citalopram (CeleXA) 20 mg Tablet Take by mouth. 08/13/2012 pantoprazole (PROTONIX) 40 mg Tablet, Delayed Release (E.C.) TAKE ONE TABLET BY MOUTH TWICE A DAY 98 07/26/2016 Diabetic Supplies, Promoboxx. Misc Form faxed to [employer] for pump supplies. 100 each 12 03/23/2015 losartan (COZAAR) 100 mg Tablet Take 50 mg by mouth daily. 08/11/2014 aspirin 81 mg EC tablet Take 81 mg by mouth daily. insulin lispro (HUMALOG) 100 unit/mL injection Inject 55-60 Units subcutaneously continuous. Via insulin pump insulin lispro (HumaLOG) Solution /01/07/2016 amLODIPine (NORVASC) 10 mg Tablet Take 10 [...] as of this encounter H&P Notes * gAapito Parmar MD - 10/24/2016 8:37 AM EDT Gastroenterology and Hepatology Pre-Procedure History and Physical Exam Procedure: EGD: Indication: 56yo F with pmh of HGD Lopez's dx 05/2016 at [facility], 06/2016 [facility] EGD with noted C0M1 Lopez's s/p RFA presents for follow-up of Lopez's Patient Active Problem List Diagnosis Code ??? [...] E11.3592 EXAM: HEENT: Airway examined, oropharynx clear Mallampati Score: II (soft palate, uvula, fauces visible) LUNGS: Clear to auscultation HEART: Regular rate and rhythm, normal S1, S2 ABDOMEN: Normal bowel sounds, soft, non tender, non distended, A/P Proceed with the planned endoscopic procedure. ASA 3 - Patient with moderate systemic disease with functional limitations Sedation Plan: anesthesia Risks and benefits of the procedure explained to the patient. Consent signed. Electronically signed by: Agapito Parmar Gastroenterology Fellow [facility] Pager [phone] 10/24/2016 documented in this encounter Plan of Treatment Upcoming Encounters Date Type Department Care Team (Late st Contact Info) Description 12/19/2023 1:00 PM EDT Tech Visit [place] [phone] Marguerite Macias 12/19/2023 3:00 PM EDT Office [place] [phone] Gardenia Golden APRN [facility] [place] [address] 01/29/2024 1:[address] [place] [address] César Escobar MD [facility] [place] [address] 01/29/2024 2:30 PM EDT Office [place] [phone] César Escobar MD [facility] [place] [address] documented as of this encounter Procedures Procedure Name Priority Date/Time Associated Diagnosis Comments SPECIMEN TO PATHOLOGY Routine 10/24/2016 9:46 AM EDT SPECIMEN TO PATHOLOGY Routine 10/24/2016 9:46 AM EDT SPECIMEN TO PATHOLOGY Routine 10/24/2016 9:46 AM EDT SURGICAL PATHOLOGY REPORT Routine 10/24/2016 9:45 AM EDT UPPER GI ENDOSCOPY Routine 10/24/2016 8: 56 AM EDT UPPER GASTROINTESTINAL ENDOSCOPY,WITH BIOPSY SINGLE OR MULTIPLE (WRVU 2.39) 10/24/2016 8:53 AM EDT CONSULT 3 month barretts from 06/2016 documented in this encounter Results * Specimen to Pathology (surgical or derm) (10/24/2016 9:46 AM EDT) AP Specimen 10/24/2016 9:46 AM EDT 10/24/2016 9:46 AM EDT Narrative [facility] - 10/24/2016 9:46 AM EDT Specimen requisition ordered. ??Separate Pathology report to follow Agapito Parmar MD PATHOLOGY/CYTOLOGY O JODIE Performing Organization Address [facility]/[place] [address] * Specimen to Pathology (surgical or derm) (10/24/2016 9:46 AM EDT) AP Specimen 10/24/2016 9:46 AM EDT 10/24/2016 9:46 AM EDT Narrative [facility] - 10/24/2016 9:46 AM EDT Specimen requisition ordered. ??Separate Pathology report to follow Agapito Parmar MD PATHOLOGY/CYTOLOGY O JODIE Performing Organization Address [facility]/State/[place] [address] * Specimen to Pathology (surgical or derm) (10/24/2016 9:46 AM EDT) AP Specimen 10/24/2016 9:46 AM EDT 10/24/2016 9:46 AM EDT Narrative [facility] - 10/24/2016 9:46 AM EDT Specimen requisition ordered. ??Separate Pathology report to follow Agapito Parmar MD PATHOLOGY/CYTOLOGY O JODIE [facility] [place] [address] * Surgical Pathology Report (10/24/2016 9:45 AM EDT) Final Diagnosis [id number] ?Location: 4T; EA11; A The signing pathologist has (i) examined the relevant preparation(s) for the specimen(s) and (ii) rendered or confirmed the diagnosis(es). . ?Surgical Pathology DIAGNOSIS A - GE junction/Z line, ?? biopsy: Squamocolumnar junctional mucosa (gastric type) with mild active and chronic inflammation. ??There is no evidence of intestinal metaplasia and dysplasia. B - Z line, ??biopsy: Esophageal squamous mucosa within normal limits. C - Mid esophagus, ??biopsy: Mildly active esophagitis with spores and hyphae forms fungal elements (consistent with Maddi) in detached squamous cells. D - Esophagus, GE junction, biposy: - ??This specimen has been sent for WATS proprietary test at the request of the ordering provider. Results will be reported in an addendum. Electronically signed by: ??Valeria Reid MD Verified: ??10/26/2016 ?Pathologist CLINICAL INFORMATION Specimen Submitted: A - GE junction/Z-line biopsies B - 1cm above Z-line biopsies C - Mid esophagus biopsies D - WATS Specimen - Esophagus, GE junction, biposy. Clinical History: EGD post RFA for high grade plasia Lopez ?? 's Clinical Diagnosis: Question Maddi esophagitis SPECIMEN PROCESSING A - Labeled/Fixativ e: GE junction/Z line biopsies, formalin. Quantity/Size: Four, averaging 0.3 cm. Tissue Description: Soft chung tissue. Sections/Proces sing: (T1) B - Labeled/Fixativ e: 1 cm above Z line biopsies, formalin. Quantity/Size: Three, 0.1-0.2 cm. Tissue Description: Soft white tissue. Sections/Proces sing: (T1) C - Labeled/Fixativ e: Mid esophagus biopsies, formalin. Quantity/Size: Four, 0.1-0.3 cm. Tissue Description: Soft white tissue. Sections/Proces sing: (T1) ??millicent 10/26/2016 7:28 PM EDT [facility] GI Biopsy 10/24/2016 9:45 AM EDT 10/24/2016 9:45 AM EDT GI Biopsy 10/24/2016 9:45 AM EDT 10/24/2016 9:45 AM EDT GI Biopsy 10/24/2016 9:45 AM EDT 10/24/2016 9:45 AM EDT Consult Case 10/24/2016 9:45 AM EDT 10/24/2016 9:45 AM EDT Agapito Parmar MD PATHOLOGY/CYTOLOGY O RDERABLES [facility] [place] [address] * UPPER GI ENDOSCOPY (10/24/2016 8:56 AM EDT) UPPER GI ENDOSCOPY [facility] Endoscopy Procedure Date: 10/24/2016 8:56 AM ? Patient Name: Jennifer Bob ? Date of : 1960 ? Age: 56 ? Order #: [id number] ? Instrument Name: [id number] ? Procedure: ? Upper GI endoscopy Indications: ? Surveillance for malignancy due to ? personal history of Lopez's ? esophagus Providers: ? Danielle Moncada ? TAMEKA Pacheco, Ava Goss, ? Business Continuity Coordinator Referring : ?Shirley Yu MD Medicines: ? Monitored Anesthesia Care Complications: ? No immediate complications. Procedure: ? Pre-Anesthesia Assessment: ? - Prior to the procedure, a History ? and Physical was performed, and ? patient medications and allergies ? were reviewed. The patient is ? competent. The risks and benefits of ? the procedure and the sedation ? options and risks were discussed with ? the patient. All questions were ? answered and informed consent was ? obtained. Patient identification and ? proposed procedure were verified by ? the physician and the nurse in the ? pre-procedure area in the procedure ? room. Mental Status Examination: ? alert and oriented. Airway ? Examination: normal oropharyngeal ? airway and neck mobility. Respiratory ? Examination: clear to auscultation. ? CV Examination: normal. ASA Grade ? Assessment: III - A patient with ? severe systemic disease. After ? reviewing the risks and benefits, the ? patient was deemed in satisfactory ? condition to undergo the procedure. ? The anesthesia plan was to use ? monitored anesthesia care (MAC). ? Immediately prior to administration ? of medications, the patient was ? re-assessed for adequacy to receive ? sedatives. The heart rate, ? respiratory rate, oxygen saturations, ? blood pressure, adequacy of pulmonary ? ventilation, and response to care ? were monitored throughout the ? procedure. The physical status of the ? patient was re-assessed after the ? procedure. ? The procedure, indications, benefits, ? risks [...] ? tolerated the procedure well. The ? upper GI endoscopy was accomplished ? without difficulty. The patient ? tolerated the procedure well. ? Findings: ? Diffuse candidiasis was found in the entire ? esophagus. Biopsies were taken with a cold forceps ? for histology from the midesophagus. ? The Z-line was irregular versus C0M1 Lopez's ? esophagus. GE junction at 40cm from the incisors, ? Z-line variable at 39cm from the incisors. GE ? junction was inspected in forward-view and gastric ? retroflexion with both white light and NBI. A ? potential Lopez's esophagus 1cm tongue and GE ? junction was brushed with the Watt's brush. 4 ? quadrant [place] protocol biopsies were taken at the ? Z-line. There was also 4 quadrant biopsies taken 1cm ? above the Z-line. Biopsies were taken with a cold ? forceps for histology. ? The entire examined stomach was normal. ? The examined duodenum was normal. ? Moderate Sedation: ? Not applicable - See Anesthesia documentation Impression: ?- Suspicion for esophageal ? candidiasis s/p esophageal biopsies. ? - Z-line irregular vs C0M1 Lopez's ? s/p [place] protocol biopsies and ? Lovell mucosal brushing ? - Normal stomach and examined ? duodenum. Recommendation: ?- Discharge to home ? - F/u path ? - Daily PPI as prescribed ? - Consider empiric fluconazole for 14 ? days ? Attending Participation: ? I personally performed the entire procedure. ? Agapito Ruizpath, 10/24/2016 10:01:28 AM Number of Addenda: 0 Note Initiated On: 10/24/2016 8:56 AM PROVATION 10/24/2016 8:56 AM EDT Shirley Yu MD GENERAL SURGICAL ORD ERABLES PROVATION documented in this encounter Visit Diagnoses Not on filedocumented in this encounter Care Teams Keel Press Operator Relationship Specialty Start Date End Date Shirley Yu MD [address] [place] [address] PCP - General 11/19/14 documented as of this encounter
--- OUTSIDE RECORDS SUMMARY | 2023-12-13 18:30 | XMS_ITS | Encounter Summary ---
Author Organization [facility] [place] [address] Care Team Providers Care General Production Worker Name Role Phone Shirley Yu MD Primary Care Provider [phone] Reason for Visit * Reason Onset Date Comments Diabetes 02/23/2016 Encounter Details Date Type Department Care Team (Late st Contact Info) Description 02/23/2016 Telephone [place] [phone] Lluvia Oropeza APRN [facility] [place] [address] Diabetes Social History Tobacco Use Types Packs/Day Years [...] encounter Miscellaneous Notes * Telephone Encounter - Lluvia Oropeza APRN - 02/23/2016 5:31 PM EST LEAD PASTOR called pt to discuss pump settings for prep day for03/25 planned colonoscopy. Reviewed glucose results. Advised to lower basal rates by .05 if glucose levels are under 150 on prep day documented in this encounter Plan of Treatment Upcoming Encounters Date Type Department Care Team (Late st Contact Info) Description 12/19/2023 1:00 PM EDT Tech [place] [phone] Marguerite Macias 12/19/2023 3:00 PM EDT Office [place] [address] Gardenia Golden, VP MEDICAL [facility] [place] [address] 01/29/2024 1:[address] [place] [address] César Escobar MD [facility] [place] [address] 01/29/2024 2:30 PM EDT Office [place] [address] César Escobar MD [facility] [place] [address] documented as of this encounter Visit Diagnoses Not on filedocumented in this encounter Care Teams General Production Worker Relationship Specialty Start Date End Date Shirley Yu MD [address] [place] [address] PCP - General 11/19/14 documented as of this encounter
--- OUTSIDE RECORDS SUMMARY | 2023-12-13 18:30 | XMS_ITS | Encounter Summary ---
[place] [address] Care Team Providers Care Pinion Sorter Name Role Phone Shirley Yu MD Primary Care Provider [phone] Encounter Details Date Type Department Care Team (Late st Contact Info) Description 08/14/2015 Orders [place] [address] Josee Peace, RN PVOD (pulmonary veno-occlusive disease) Social History Tobacco Use Types Packs/Day [...] PM EDT Tech [place] [address] Marguerite Macias 12/19/2023 3:00 PM EDT Office [place] [address] Gardenia Golden, DISTRICT MANAGER PRIMARY CARE SALES [facility] [place] [address] 01/29/2024 1:[address] [place] [address] César Escobar MD [facility] [address] 01/29/2024 2:30 PM EDT Office [place] [address] César Escobar MD [facility] [place] [address] documented as of this encounter Results * SHEFALI, legs, multiple levels (08/24/2015 12:28 PM EDT) VB Text Report Department: Vascular Surgery Lab Patient: [id number] (JENNIFER WNITERS) CPT: 21775 ICD10: I73.9;I27.0 Referring Physician: BRIDGET AVENDANO ?? Indications: PVOD; history of right HELPDESK TECHNICIAN-AK POP BPG, left iliac stenting; ? change [...] ? Dorsalis Pedis (Ankle) Artery ?87 ?0.53 ??Steuben-Biphasic ? Posterior Tibial (Ankle) Artery ??89 ?0.54 ??Steuben-Biphasic ? Great Toe ?63 ? 0.38 ?? [...] documented in this encounter Visit Diagnoses Diagnosis PVOD (pulmonary veno-occlusive disease) Other pulmonary embolism and infarction documented in this encounter Care Teams Pinion Sorter Relationship Specialty Start Date End Date Shirley Yu MD [address] [place] [address] PCP - General 11/19/14 documented as of this encounter
--- OUTSIDE RECORDS SUMMARY | 2023-12-13 18:30 | XMS_ITS | Encounter Summary ---
[place] [address] Care Team Providers Care Horse Wrangler Name Role Phone Shirley Yu MD Primary Care Provider [phone] Encounter Details Date Type Department Care Team (Late st Contact Info) Description 09/27/2016 Ancillary Procedure [place] [phone] César Escobar MD [facility] [place] [address] Social History Tobacco Use Types Packs/Day Years [...] PM EDT Tech [place] [phone] Marguerite Macias 12/19/2023 3:00 PM EDT Office [place] [address] Gardenia Golden, [facility] [place] [place] [address] 01/29/2024 1:[address] [place] [phone] César Escobar MD [facility] [place] [address] 01/29/2024 2:30 PM EDT Office [place] [phone] César Escobar MD [facility] [place] [address] documented as of this encounter Procedures Procedure Name Priority Date/Time Associated Diagnosis Comments FILM LIBRARY STORAGE ONLY CT CHEST Routine 09/27/2016 12:00 AM EDT documented in this encounter Results * Film Library- Storage Only CT Chest (09/27/2016 12:00 AM EDT) Narrative [facility] - 04/16/2018 10:30 AM EST This exam is for storage only and is auto-finalizing. César Escobar MD IMG FILM LIBRARY ORDERABLES [place], [place] documented in this encounter Visit Diagnoses Not on filedocumented in this encounter Care Teams Horse Wrangler Relationship Specialty Start Date End Date Shirley uY MD [address] [place] [address] PCP - General 11/19/14 documented as of this encounter
--- OUTSIDE RECORDS SUMMARY | 2023-12-13 18:30 | XMS_ITS | Encounter Summary ---
[place] [address] Care Team Providers Care Invoice Machine Operator Name Role Phone Shirley Yu MD Primary Care Provider [phone] Encounter Details Date Type Department Care Team (Late Contact Info) Description 10/25/2016 Telephone [place] [phone] Zenobia Ovalles RN Social History Tobacco Use Types Packs/Day [...] encounter Miscellaneous Notes * Telephone Encounter - Zenobia Ovalles RN - 10/25/2016 9:10 AM EDT Received VM from Casandra. She calls as she had endoscopy. States Dr. Parmar was going to send rx to pharmacy for her. Chart reviewed. Rx sent yesterday. Call placed to pharmacy. Confirmed rx sent and picked up by patient. documented in this encounter Plan of Treatment Upcoming Encounters Date Type Department Care Team (Late Contact Info) Description 12/19/2023 1:00 PM EDT Tech Visit [place] [phone] Marguerite Macias 12/19/2023 3:00 PM EDT Office [place] [address] Gardenia Golden, [facility] [place] [address] 01/29/2024 1:[address] [place] [address] César Escobar MD [facility] DR THORACIC SURGERY [place], [place] [address] 01/29/2024 2:30 PM EDT Office [place] [address] César Escobar MD [facility] [place] [place] [address] documented as of this encounter Visit Diagnoses Not on filedocumented in this encounter Care Teams Invoice Machine Operator Relationship Specialty Start Date End Date Shirley Yu MD [address] [place] [address] PCP - General 11/19/14 documented as of this encounter
--- OUTSIDE RECORDS SUMMARY | 2023-12-13 18:30 | XMS_ITS | Encounter Summary ---
Author Organization Formerly [facility] [place] [address] Care Team Providers Care Costume Shop Manager Name Role Phone Shirley Yu MD Primary Care Provider [phone] Reason for Visit * Consultation (Routine) - Closed Specialty Diagnoses / Procedures Referred By Contpietro t Referred To Contact Vascular Surgery Diagnoses claudication disease, peripheral vascular nos Shirley Yu MD [address] [place] [address] [facility] Vascular Surg [address] [place] [address] Referral ID Status Reason Start Date Expiration Date V isits Requested Visits Authorized [id number] Closed [facility]uate [facility] 07/21/2016 07/21/2017 2 2 Encounter Details Date Type Department Care Team (Latest Contact Info) Description 08/15/2016 12:04 PM EDT - 08/15/2016 11:59 PM EDT Hospital Encounter [place] [address] Lulu Reveles, [place] Stenosis of left carotid artery; PAD (peripheral artery disease); 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 Misc Form faxed to [employer] for pump supplies. 100 each 12 03/23/2015 losartan (COZAAR) 100 mg Tablet Take 50 mg by mouth daily. 08/11/2014 aspirin 81 mg EC tablet Take 81 mg by mouth daily. insulin lispro (HUMALOG) 100 unit/mL injection Inject 55-60 Units subcutaneously continuous. Via insulin pump insulin lispro (HumaLOG) Solution 24/01/07/2016 3 amLODIPine (NORVASC) 10 mg Tablet Take [...] PM EDT Tech [place] [phone] Marguerite Macias 12/19/2023 3:00 PM EDT Office [place] [address] Gardenia Golden, [facility] [place] [address] 01/29/2024 1:[address] [place] [address] César Escobar MD [facility] DR THORACIC SURGERY [place], [place] [id number] 01/29/2024 2:30 PM EDT Office [place] [address] César Escobar MD [facility] [place] [address] documented as of this encounter Procedures Procedure Name Priority Date/Time Associated Diagnosis Comments UNILATERAL BYPASS GRAFT ASSESS Routine 08/15/2016 12:31 PM EDT PAD (peripheral artery disease) 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 [...] Text Report Department: Vascular Surgery Lab Patient: [id number] (JENNIFER WINTERS) CPT: 93477 ICD10: I73.9;I70.411 Referring Physician: BRIDGET AVENDANO ?? Indications: S/P R fem-ak pop bypass graft, PAD, ? change in ABIs Diabetes mellitus: ??Yes ICD10 Diagnosis Code: I73.9, I70.411 Findings: Right ?Pressure (mm Hg) ?? SHEFALI ??Waveform ?TBI ?? Brachial Artery ?155 ? Dorsalis Pedis (Ankle) Artery ?108 ? 0.70 ??Polk-Biphasi c ? Posterior Tibial (Ankle) Artery ??112 ? 0.72 ??Polk-Biphasi c ? Great Toe ?76 ? 0.49 ?? Left ? Pressure (mm Hg) ?? SHEFALI ??Waveform ?TBI ?? Brachial Artery ?149 ? Dorsalis Pedis (Ankle) Artery ?80 ?0.52 ??Polk-Biphasi c ? Posterior Tibial (Ankle) Artery ??80 ?0.52 ??Polk-Biphasi c ? Great Toe ?57 ? 0.37 [...] PM EDT Bridget Avendano MD VASCULAR ORDERABLES Performing Organization Address City/State/ZIP Co mt Phone Number [email or web address] * Cerebrovascular Duplex, Bilateral (08/15/2016 12:31 PM EDT) VB Text Report Department: Vascular Surgery Lab Patient: [id number] (JENNIFER WINTERS) CPT: 86604 ICD10: I65.22 Referring Physician: BRIDGET AVENDANO ?? [...] ? 315 ?? 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
--- OUTSIDE RECORDS SUMMARY | 2023-12-13 18:30 | XMS_ITS | Encounter Summary ---
Author Organization Formerly [facility] [place] [address] Care Team Providers Care Commercial Real Estate Manager Name Role Phone Zofia Yu MD Primary Care Provider [phone] Encounter Details Date Type Department Care Team (Latest Contact Info) Description 06/24/2015 4:00 PM EDT Office Visit [place] [address] Nathaly Slater MD [facility] [place] [address] Michelle Kelly MD [facility] [place] [address] CKD (chronic kidney disease) stage 3, GFR 30-59 ml/min; Essential hypertension; Secondary hyperparathyroidism of renal origin; Hyperkalemia; Diabetic nephropathy associated with type 1 diabetes mellitus; Obesity, unspecified obesity severity, unspecified obesity type; Type 2 diabetes mellitus with complication Social History Tobacco Use Types Packs/Day Years [...] Sign Reading Time Taken Comments Blood Pressure 147/58 06/24/2015 4:00 PM EDT Pulse 77 06/24/2015 4:00 PM EDT Temperature - - Respiratory Rate - - Oxygen Saturation 98% 06/24/2015 4:00 PM EDT Inhaled Oxygen Concentration - - Weight 102.1 kg (225 lb) 06/24/2015 4:00 PM EDT Height - - Body Mass Index 35.24 02/18/2015 10:46 AM EST documented in this encounter Progress Notes * Nathaly Slater MD - 06/27/2015 9:06 PM EDT I have seen the patient and reviewed the fellow's history, and I agree with the details as written.The assessment and plan were formulated in discussion with me, and I agree with them as documented. * Robin Michelle - 06/25/2015 4:37 PM EDT [facility] Nephrology/Hypertension follow up Jennifer Bob [id number] 1960 ID: [id number] y.o. female for follow up PAST MEDICAL HX: Past Medical History Diagnosis Date ??? Allergy Sulfa, Penicillin ??? Cataract ??? Thyroid disease Hyperthyroidism ??? Cardiac disease PAD ??? Hypertension ??? Skin disease Hyperkeratosis palmaris et plantaris ??? Diabetes mellitus Type 1 ??? DM eyes ??? Hyperlipidemia ??? Depression 02/18/2015 HPI: Ms Bob is a 54 yo female who is being followed for CkD related to diabetic nephropathy. She is not checking her BP at home. She is still struggling with her weights and DM control. She is getting treated otherwise for diabetic retinopathy. Was also evaluated by transplant for pancreas transplant. ROS: -no fever, chills, night sweats -no headache, blurring of vision, diplopia -no dysphagia, hearing problems -no chest pain, palpitation, no HILL, orthopnea -no cough or SOB -no abdominal pain, nausea, vomiting or diarrhea -no rash -no neuropathy -trace LE swelling Medications: Prior to Admission medications Medication Sig Start Date End Date Taking? Authorizing Provider Diabetic Supplies, [employer]. Misc Form faxed to [employer] for pump supplies. 03/23/15 Yes Lluvia Oropeza APRN blood sugar diagnostic strips (CONTOUR NEXT STRIPS) Strip 1 each by Other route 4 times daily. minimed insulin pump Dx code E10.65 02/20/15 Yes Lluvia Oropeza APRN amLODIPine (NORVASC) 5 mg Tablet Take 1 tablet by mouth daily. 10/15/14 Yes Michelle Kelly MD atenolol (TENORMIN) 25 mg Tablet Take 25 mg by mouth daily. 08/20/14 Yes PROVIDER, HISTORICAL levothyroxine (SYNTHROID) 125 mcg Tablet Take 125 mcg by mouth daily. 09/18/14 Yes PROVIDER, HISTORICAL losartan (COZAAR) 100 mg Tablet Take 100 mg by mouth daily. 08/11/14 Yes PROVIDER, HISTORICAL HUMULIN R Solution Inject 15 Units subcutaneously 3 times daily as needed. 09/30/14 Yes PROVIDER, HISTORICAL cilostazol (PLETAL) 100 mg tablet Take 1 tablet by mouth 2 times daily. 10/15/12 Yes Abiodun Avendano MD CYANOCOBALAMIN, VITAMIN B-12, (VITAMIN B-12 ORAL) Take by mouth daily. Yes PROVIDER, HISTORICAL Magnesium 250 mg Tab Take by mouth daily. Yes PROVIDER, HISTORICAL aspirin 81 mg EC tablet Take 81 mg by mouth daily. Yes PROVIDER, HISTORICAL citalopram (CELEXA) 20 mg tablet Take 20 mg by mouth daily. Yes PROVIDER, HISTORICAL dabigatran (PRADAXA) 150 mg capsule Take 150 mg by mouth 2 times daily. Yes PROVIDER, HISTORICAL insulin lispro (HUMALOG) 100 unit/mL injection Inject 55-60 Units subcutaneously continuous. Via insulin pump Yes PROVIDER, HISTORICAL simvastatin (ZOCOR) 40 mg tablet Take 40 mg by mouth nightly. PROVIDER, HISTORICAL Allergies / ADRs: Allergies Allergen Reactions ??? Sulfa (Sulfonamide Antibiotics) Other (See Comments) Renal failure, bleeding ??? Penicillins Unknown PHYSICAL EXAM: Filed Vitals: 06/24/15 1600 BP: 147/58 Pulse: 77 Gen - AAO x 3 in NAD Skin - No rash HEENT - Moist mucous membranes Chest: Lungs clear to auscultation, no wheezes/ rhonchi/ crackles. Heart - S1/S2 normal, no murmur, gallop, or rub. JVP not elevated. Abd - Soft. + BS. No bruit. Non tender. No organomegaly. Ext - Warm. No cyanosis. trace dependent edema Labs/ Imaging: Recent Results (from the past 24 hour(s)) Microalbumin, urine, random Result Value Ref Range U Creatinine 81 mg/dL U Ran Malb Conc 73.8 mg/L U Ran Malb Calc 91 mcg/mg Cr Basic Metabolic Panel (non-fasting) Result Value Ref Range Glucose Lvl 316 (H) 65 - 199 mg/dL BUN 27 (H) 8 - 18 mg/dL Creatinine 1.65 (H) 0.70 - 1.20 mg/dL Sodium 140 135 - 145 mmol/L Potassium 5.3 (H) 3.5 - 5.0 mmol/L Chloride 103 98 - 107 mmol/L CO2 22 22 - 31 mmol/L Anion Gap 15 5 - 15 mmol/L Calcium 9.1 8.5 - 10.5 mg/dL Estimated GFR 32 (L) >=60 PTH Result Value Ref Range PTH 85 (H) 15 - 65 pg/mL Uric acid Result Value Ref Range Uric Acid 6.5 2.5 - 6.5 mg/dL Phosphorus Result Value Ref Range Phosphorus 4.0 2.5 - 4.5 mg/dL Impression/ Plan: CKD stage G3b, A1, related to diabetes mellitus type 1, retinopathy and significant peripheral vascular disease , hx of fem pop bypass surgery but no neuropathy- stable over all. No significant JENNA episodes, no nsaid use. HTN - elevated today, on 3 agents. Mild hyperkalemia- related to losartan, persistent. MBD - stable Phos, PTH levels in last 1 year ?? Evaluated for pancreas transplant on patient request, suggested f/u for simultaneous panc kidney transplant when Gfr 10-15 ?? Significant hx of peripheral vascular disease, could/could not have TANO but will not sanna the dx at this point considering it wont change our management much - Plan: BP checks at home in 1 week ( pt will call us with numbers) Will continue losartan at current dose and provide additional education regarding diet. If unable to control with diet, will consider alternate agent. If home BP not at goal of <130/80, will recommend addition of diuretic (probably HCTZ), which will also help with control of K+. Replace atenolol with another BB like coreg at a higher equivalent dose Will not increase amlodipine due to her previous leg swelling issues with 10 mg. Follow up: 3 months with labs prior. Seen and Discussed w/ Dr. Garrett Kelly MD Nephrology Fellow Pager# [phone] ZOFIA YU MD [address] [place] [address] documented in this encounter Miscellaneous Notes * Addendum Note - Nathaly Slater MD - 06/27/2015 9:14 PM EDTAddended by: NATHALY SLATER on: 06/27/2015 09:14 PM Modules accepted: Level of Service documented in this encounter Plan of Treatment Upcoming Encounters Date Type Department Care Team (Late st Contact Info) Description 12/19/2023 1:00 PM EDT Tech [place] [phone] Marguerite Macias 12/19/2023 3:00 PM EDT Office [place] [address] Gardenia Golden APRN [facility] [place] [address] 01/29/2024 1:[address] [place] [address] César Escobar MD [facility] DR THORACIC SURGERY [place], [place] [id number] 01/29/2024 2:30 PM EDT Office [place] [address] César Escobar MD [facility] [place] [address] documented as of this encounter Procedures Procedure Name Priority Date/Time Associated Diagnosis Comments U ALBUMIN/CRE RATIO Routine 06/24/2015 4 :44 PM EDT CKD (chronic kidney disease) stage 3, GFR 30-59 ml/min documented in this encounter Results * Phosphorus (06/24/2015 4:54 PM EDT) Phosphorus 4.0 2.5 - 4.5 mg/dL [facility] Blood specimen (specimen) 06/24/2015 4:54 PM EDT 06/24/2015 5:02 PM EDT Narrative Resulting Agency Comment Spec In Lab Nathaly Slater MD CHEMISTRY ORDERABLE S Performing Organization Address City/[facility]/ZIP Co de Phone Number [facility] [place] [address] * Uric acid (06/24/2015 4:54 PM EDT) Uric Acid 6.5 2.5 - 6.5 mg/dL [facility] Blood specimen (specimen) 06/24/2015 4:54 PM EDT 06/24/2015 5:02 PM EDT Narrative Resulting Agency Comment Spec In Lab Nathaly Slater MD CHEMISTRY ORDERABLE S [facility] [place] [address] * (ABNORMAL) PTH (06/24/2015 4:54 PM EDT) Parathyroid Hormone 85(H) 15 - 65 pg/mL [facility] Blood specimen (specimen) 06/24/2015 4:54 PM EDT 06/24/2015 5:02 PM EDT Narrative Resulting Agency Comment Spec In Lab Nathaly Slater MD CHEMISTRY ORDERABLE S [facility] [place] [address] * (ABNORMAL) Basic Metabolic Panel (non-fasting) (06/24/2015 4:54 PM EDT) Glucose 316(H) 65 - 199 mg/dL [facility] Comment:Diabetes: >=200 mg/d L plus symptoms Blood Urea Nitrogen 27(H) 8 - 18 mg/dL [facility] Creatinine 1.65(H) 0.70 - 1.20 mg/dL [facility] Comment: Please note that the pediatric reference intervals supplied above were not validated at [facility]. Results from pediatric patients should be interpreted in conjunction to the patient's age, height and muscle mass. Sodium 140 135 - 145 mmol/L [facility] Potassium 5.3(H) 3.5 - 5.0 mmol/L [facility] Comment: Please note: ??Patients with WBC >100,000 may have falsely elevated Potassium levels. ??For accurate Potassium quantification in these patients send serum separator tube (gold top) for subsequent determinations. ??Contact the Clinical Chemistry Laboratory if there are any questions. Chloride 103 98 - 107 mmol/L [facility] Carbon Dioxide 22 22 - 31 mmol/L [facility] Anion Gap 15 5 - 15 mmol/L [facility] Calcium 9.1 8.5 - 10.5 mg/dL [facility] Est Glomerular Filtration Rate 32(L) >=60 [facility] Comment: This estimated GFR (eGFR) value [...] the following links into your internet browser. [email or web address] Blood specimen (specimen) 06/24/2015 4:54 PM EDT 06/24/2015 5:02 PM EDT Narrative Resulting Agency Comment Spec In Lab Nathaly Slater MD CHEMISTRY ORDERABLE S Performing Organization Address [facility] Co de Phone Number [facility] [place] [address] * Microalbumin, urine, random (06/24/2015 4:44 PM EDT) Creatinine, Urine 81 mg/dL [facility] Albumin, Urine 73.8 mg/L [facility] Albumin / Creatinin Ratio, Urine 91 mcg/mg Cr [facility] Comment: Reference Range* Random collection (mcg/mg creatinine) Normal ?<30 Microalbuminuria ?? 30 - 300 Clinical Albuminuria ?? >300 *[place]. Diabetic Nephropathy. Diabetes Care 1997;(Suppl 1):S24-S27 Exercise within 24 hour, infection, fever, CHF, marked hyperglycemia, and marked hypertension may elevate urinary albumin excretion over baseline values. Urine specimen (specimen) 06/24/2015 4:44 PM EDT 06/24/2015 4:55 PM EDT Narrative Resulting Agency Comment Spec In Lab Nathaly Slater MD URINE ORDERABLES Performing Organization Address [facility] Co de Phone Number [facility] [place] [phone] documented in this encounter Visit Diagnoses Diagnosis CKD (chronic kidney disease) stage 3, GFR 30-59 ml/min Chronic kidney disease, Stage III (moderate) Essential hypertension Unspecified essential hypertension Secondary hyperparathyroidism of renal origin Secondary hyperparathyroidism (of renal origin) Hyperkalemia Hyperpotassemia Diabetic nephropathy associated with type 1 diabetes mellitus Obesity, unspecified obesity severity, unspecified obesity type Type 2 diabetes mellitus with complication documented in this encounter Care Teams Commercial Real Estate Manager Relationship Specialty Start Date End Date Zofia Yu MD [address] [place] [address] PCP - General 11/19/14 documented as of this encounter
--- OUTSIDE RECORDS SUMMARY | 2023-12-13 18:30 | XMS_ITS | Encounter Summary ---
[place] [address] Care Team Providers Care Popped Corn Oven Attendant Name Role Phone Shirley Yu MD Primary Care Provider [phone] Reason for Referral * Consultation (Routine) - Closed Specialty Diagnoses / Procedures Referred By Contac t Referred To Contact Radiology Diagnoses CKD (chronic kidney disease), stage IV Procedures US Retroperitoneal Complete Michelle Kelly MD [facility] [place] [address] [place] [address] Referral ID Status Reason Start Date Expiration Date V isits Requested Visits Authorized [id number] Closed Specialty Service Requested 06/15/2015 06/14/2016 1 1 Reason for Visit * Consultation (Routine) - Closed Specialty Diagnoses / Procedures Referred By Contac t Referred To Contact Radiology Diagnoses CKD (chronic kidney disease), stage IV Procedures US Retroperitoneal Complete Michelle Kelly MD [facility] [place] [address] [place] [address] Referral ID Status Reason Start Date Expiration Date V isits Requested Visits Authorized [id number] Closed Specialty Service Requested 06/15/2015 06/14/2016 1 1 Encounter Details Date Type Department Care Team (Late st Contact Info) Description 06/24/2015 3:00 PM EDT - 06/24/2015 11:59 PM EDT Hospital Encounter Ultrasound at [facility] [place], operated [place] [address] Nathaly Slater MD [facility] [place] [address] CKD (chronic kidney disease), stage IV Discharge Disposition: Home Social History Tobacco Use [...] Diabetic Supplies, [employer]. Misc Form faxed to [employer] for pump supplies. 100 each 12 03/23/2015 losartan (COZAAR) 100 mg Tablet Take 50 mg by mouth daily. 08/11/2014 aspirin 81 mg EC tablet Take 81 mg by mouth daily. insulin lispro (HUMALOG) 100 unit/mL injection Inject 55-60 Units subcutaneously continuous. Via insulin pump blood sugar diagnostic strips (CONTOUR NEXT STRIPS) Strip 1 each by Other route 4 times daily. minimed insulin pump Dx code E10.65 400 each 3 02/20/2015 01/02/2017 amLODIPine (NORVASC) 5 mg Tablet Take 1 tablet by mouth daily. 30 tablet 3 10/15/2014 08/24/2015 atenolol (TENORMIN) 25 mg Tablet Take 25 mg by mouth daily. 08/20/2014 08/24/2015 levothyroxine (SYNTHROID) 125 mcg Tablet Take 125 mcg by mouth daily. 09/18/2014 01/11/2017 HUMULIN R Solution Inject 15 Units subcutaneously 3 times daily as needed. 09/30/2014 08/24/2015 cilostazol (PLETAL) 100 mg tablet Take 1 tablet by mouth 2 times daily. 180 tablet 3 10/15/2012 02/04/2019 CYANOCOBALAMIN, VITAMIN B-12, (VITAMIN B-12 ORAL) Take by mouth daily. 01/05/2018 Magnesium 250 mg Tab Take by mouth daily. 022 citalopram (CELEXA) 20 mg tablet Take 20 mg by mouth daily. 01/02/2017 simvastatin (ZOCOR) 40 mg tablet Take 40 mg by mouth nightly. 01/02/2017 dabigatran (PRADAXA) 150 mg capsule Take 150 mg by mouth 2 times daily. 08/24/2015 documented as of this encounter Plan of Treatment Upcoming Encounters Date Type Department Care Team (Late st Contact Info) Description 12/19/2023 1:00 PM EDT Tech Visit [place] [address] Marguerite Macias 12/19/2023 3:00 PM EDT Office [place] [address] Gardenia Golden, ADJUNCT PHYSICAL EDUCATION INSTRUCTOR [facility] [place] [address] 01/29/2024 1:[address] [place] [place] [phone] César Escobar MD [facility] [place] [address] 01/29/2024 2:30 PM EDT Office [place] [address] César Escobar MD [facility] [place] [address] documented as of this encounter Procedures Procedure Name Priority Date/Time Associated Diagnosis Comments US RETROPERITONEAL COMPLETE Routine 06/24/2015 3:37 PM EDT CKD (chronic kidney disease), stage IV documented in this encounter Results * US Retroperitoneal Complete (06/24/2015 3:37 PM EDT) Anatomical Region Laterality Modality Abdomen Ultrasound 06/24/2015 3:27 PM EDT Impressions 06/24/2015 4:07 PM EDT Impression Ultrasound - ??Retroperitoneal Complete - Summary Bilateral renal incresed echogenicity, nonfocal, consider chronic renal/medical renal disease. Normal bladder ultrasound. I ??viewed the images and agree with the above interpretation. ?César Mora MD Electronically Signed Final Report ?? 06/24/2015 04:06 pm Narrative 06/24/2015 4:07 PM EDT Renal ?(Signed Final 06/24/2015 04:06 pm) Patient Info ID #: ? [id number] ?: ??[birth year] (54 yrs) Name: ? JENNIFER WINTERS ?Visit Date: 06/24/2015 03:27 pm Performed By Performed By: ? Celestina Irving RDMS Attending: ?César Mora MD Referred By: ?NATHALY SLATER MD Service(s) Provided ??URETRO - Retroperitoneal Complete - [id number] ? [id number] Indications ??CKD Right Kidney Size (cm) ?L: ??10.6 Cortical Thickness: ?Cortical thinning Cortical Echogenicity: ?? Increased echogenicity Hydronephrosis: ?No sonographic evidence Left Kidney Size (cm) ?L: ??10.5 Cortical Thickness: ?Cortical thinning Cortical Echogenicity: ?? Increased echogenicity Hydronephrosis: ?No sonographic evidence Urinary Bladder Pre-void (cm) ? L: ??8.1 ? AP: ??4.8 ? TV: ??8.9 Vol (ml): ?181.2 Comment: ?Partially distended, normal contour Procedure Note César Mora MD - 06/24/2015 Renal (Signed Final 06/24/2015 04:06 pm) Patient Info ID #: [id number] : 56 (54 yrs) Name: JENNIFER WINTERS Visit Date: 06/24/2015 03:27 pm Performed By Performed By: Celestina Irving RDMS Attending: César Mora MD Referred By: NATHALY SLATER MD Service(s) Provided URETRO - Retroperitoneal Complete - [id number] Indications CKD Right Kidney Size (cm) L: 10.6 Cortical Thickness: Cortical thinning Cortical Echogenicity: Increased echogenicity Hydronephrosis: No sonographic evidence Left Kidney Size (cm) L: 10.5 Cortical Thickness: Cortical thinning Cortical Echogenicity: Increased echogenicity Hydronephrosis: No sonographic evidence Urinary Bladder Pre-void (cm) L: 8.1 AP: 4.8 TV: 8.9 Vol (ml): 181.2 Comment: Partially distended, normal contour IMPRESSION Impression Ultrasound - Retroperitoneal Complete - Summary Bilateral renal incresed echogenicity, nonfocal, consider chronic renal/medical renal disease. Normal bladder ultrasound. I viewed the images and agree with the above interpretation. César Mora MD Electronically Signed Final Report 06/24/2015 04:06 pm Nathaly Slater MD IMG US GEN ORDERABL ES documented in this encounter Visit Diagnoses Diagnosis CKD (chronic kidney disease), stage IV Chronic kidney disease, Stage IV (severe) documented in this encounter Care Teams Popped Corn Oven Attendant Relationship Specialty Start Date End Date Shirley Yu MD [address] [place] [address] PCP - General 11/19/14 documented as of this encounter
--- OUTSIDE RECORDS SUMMARY | 2023-12-13 18:30 | XMS_ITS | Encounter Summary ---
[place] [address] Care Team Providers Care Engine Lathe Tender Name Role Phone Shirley Yu MD Primary Care Provider [phone] Encounter Details Date Type Department Care Team (Latest Contact Info) Description 01/02/2017 10:00 AM EDT Laboratory Appointment Lab [address] [place] [address] Type 1 diabetes mellitus with stage 3 [...] PM EDT Tech Visit [place] [address] Marguerite Macias 12/19/2023 3:00 PM EDT Office Visit [place] [address] Gardenia Golden, [facility] [place] [address] 01/29/2024 1:[address] [place] [address] César Escobar MD [facility] [place] [address] 01/29/2024 2:30 PM EDT Office Visit [place] [address] César Escobar MD [facility] [place] [address] documented as of this encounter Procedures Procedure Name Priority Date/Time Associated Diagnosis Comments TSH Routine 01/02/2017 10:33 AM EDT Type 1 diabetes mellitus with stage 3 chronic kidney disease LDL CHOLESTEROL, DIRECT Routine 01/02/2017 10:33 AM EDT Type 1 diabetes mellitus with stage 3 chronic kidney disease HEMOGLOBIN A1C Routine 01/02/2017 10:33 AM EDT Type 1 diabetes mellitus with stage 3 chronic kidney disease BASIC METABOLIC PANEL Routine 01/02/2017 10:33 AM EDT Type 1 diabetes mellitus with stage 3 chronic kidney disease documented in this encounter Results * LDL Cholesterol, Direct (01/02/2017 10:33 AM EDT) LDL Cholesterol, Direct 109 <=190 mg/dL [facility] Blood specimen (specimen) 01/02/2017 10:33 AM EDT 01/02/2017 10:46 AM EDT Narrative Resulting Agency Comment Spec In Lab Lluvia E Bilotta HAT FORMER CHEMISTRY ORDERABLE S [facility] [place] [address] * TSH (01/02/2017 10:33 AM EDT) Thyroid Stimulating Hormone 2.09 0.27 - 4.20 mlU/ML [facility] Blood specimen (specimen) 01/02/2017 10:33 AM EDT 01/02/2017 10:46 AM EDT Narrative Resulting Agency Comment Spec In Lab Lluvia Oropeza APRN CHEMISTRY ORDERABLE S [facility] [place] [address] * (ABNORMAL) Hemoglobin A1c (01/02/2017 10:33 AM EDT) Pathologist [facility] Hemoglobin A1c 8.7(H) 4.3 - 5.6 % [facility] Comment: Reference Range: 4.3 - 5.6% [...] Mellitus, Diabetes Care 2013; 36: Suppl. 1, O03-66 Estimated Average Glucose 203 mg/dL [facility] Comment: eAG equivalents for HbA1c percentages: [...] into estimated average glucose values. ??Diabetes Care 2008:31(8):1798-5410. Blood specimen (specimen) 01/02/2017 10:33 AM EDT 01/02/2017 10:46 AM EDT Narrative Resulting Agency Comment Spec In Lab Lluvia Oropeza APRN CHEMISTRY ORDERABLE S [facility] [place] [address] * (ABNORMAL) Basic Metabolic Panel (non-fasting) (01/02/2017 10:33 AM EDT) Glucose 241(H) 65 - 199 mg/dL [facility] Comment:Diabetes: >=200 mg/d L plus symptoms Blood Urea Nitrogen 26(H) 8 - 18 mg/dL [facility] Creatinine 1.50(H) 0.70 - 1.20 mg/dL [facility] Comment: Please note that the pediatric reference intervals supplied above were not validated at [facility]. Results from pediatric patients should be interpreted in conjunction to the patient's age, height and muscle mass. Sodium 138 135 - 145 mmol/L [facility] Potassium 5.4(H) 3.5 - 5.0 mmol/L [facility] Comment: Please note: ??Patients with WBC >100,000 may have falsely elevated Potassium levels. ??For accurate Potassium quantification in these patients send serum separator tube (gold top) for subsequent determinations. ??Contact the Clinical Chemistry Laboratory if there are any questions. Chloride 101 98 - 107 mmol/L [facility] Carbon Dioxide 22 22 - 31 mmol/L [facility] Anion Gap 15 5 - 15 mmol/L [facility] Calcium 9.3 8.5 - 10.5 mg/dL [facility] Est Glomerular Filtration Rate 36(L) >=60 [facility] Comment: This estimated GFR (eGFR) [...] the following links into your internet browser. [email or web address] Blood specimen (specimen) 01/02/2017 10:33 AM EDT 01/02/2017 10:46 AM EDT Narrative Resulting Agency Comment Spec In Lab Lluvia Oropeza HAT FORMER CHEMISTRY ORDERABLE S [facility] [place] [id number] documented in this encounter Visit Diagnoses Diagnosis Type 1 diabetes mellitus with stage 3 chronic kidney disease Type I (juvenile type) diabetes mellitus with renal manifestations, not stated as uncontrolled documented in this encounter Care Teams Engine Lathe Tender Relationship Specialty Start Date End Date Shirley Yu MD [address] [place] [address] PCP - General 11/19/14 documented as of this encounter
--- OUTSIDE RECORDS SUMMARY | 2023-12-13 18:30 | XMS_ITS | Encounter Summary ---
Author Organization [facility] [place] [address] Care Team Providers Care Pedigree Researcher Name Role Phone Shirley Yu MD Primary Care Provider [phone] Encounter Details Date Type Department Care Team (Late st Contact Info) Description 06/22/2016 3:00 PM EDT - 06/22/2016 4:00 PM EDT Surgery [place] [phone] Christos Donald MD [facility] [place] [address] EGD, UPPER GI ENDOSCOPY (WRVU 2.09) Social History Tobacco Use Types Packs/Day Years [...] 16 06/22/2016 3:53 PM EDT Oxygen Saturation 92% 06/22/2016 4:00 PM EDT Inhaled Oxygen Concentration - - Weight - - Height - - Body Mass Index - - documented in this encounter Discharge Instructions * Discharge Instructions* Xochitl Donaldson RN - 06/22/2016 3:56 PM EDT UPPER GI [...] better as expected. Monday-Monday Same Day Endo [phone]-[phone] Otherwise contact [phone] and ask to speak to the supervisory cbp officer head insulation board saw operator Follow-up care is a parham part of [...] Tablet Take by mouth. 08/13/2012 Diabetic Supplies, [employer]. Misc Form faxed to [email or web address] for pump supplies. 100 each 12 03/23/2015 [...] 06/22/2016 2:52 PM EDT Patient Name: Jennifer Bob Patient Age: 55 y.o. Birthdate: 1960 Admit [...] Donald MD - 06/22/2016 4:19 PM EDT [facility] [place] Patient Name: Jennifer Bob : [id number] MR#: [id number] Case Date: 06/22/2016 Surgeon: Surgeon(s) and Role: [...] PM EDT Tech [place] [address] Marguerite Macias 12/19/2023 3:00 PM EDT Office Visit [place] [address] Gardenia Golden, [facility] [place] [address] 01/29/2024 1:[address] [place] [address] César Escobar MD [facility] [place] [address] 01/29/2024 2:30 PM EDT Office Visit [place] [address] César Escobar MD [facility] [place] [address] documented as of this encounter Procedures Procedure [...] POCT Glucose (06/22/2016 2:45 PM EDT) Pathologist [facility] Glucose, POC 191 65 - 199 mg/dL [facility] Comment: Supplemental ranges: <140 mg/dL before meals <180 mg/dL all other times of the day Blood specimen (specimen) 06/22/2016 2:45 PM EDT 06/22/2016 2:45 PM EDT Christos Donald MD POINT OF CARE TEST O RDERAJOHN [facility] [place] [address] * UPPER GI ENDOSCOPY (06/22/2016 2:40 PM EDT) [facility] UPPER GI ENDOSCOPY [facility] Endoscopy ___ Procedure Date: 06/22/2016 2:40 PM ? Patient Name: Jennifer Bob ? Date of : 1960 ? Age: 55 ? Order #: [id number] ? Instrument Name: [id number] ? ___ Procedure: ? Upper GI endoscopy [...] RN) documented in this encounter Care Teams Pedigree Researcher Relationship Specialty Start Date End Date Shirley Yu MD [address] [place] [address] PCP - General 11/19/14 documented as of this encounter
--- OUTSIDE RECORDS SUMMARY | 2023-12-13 18:30 | XMS_ITS | Encounter Summary ---
Author Organization [employer] [place] [address] Care Team Providers Care Gun Synchronizer Name Role Phone Shirley Yu MD Primary Care Provider [phone] Encounter Details Date Type Department Care Team (Late st Contact Info) Description 10/24/2016 9:00 AM EDT - 10/24/2016 10:00 AM EDT Surgery [place] [address] Agapito Parmar MD [facility] [place] [address] UPPER GASTROINTESTINAL ENDOSCOPY,WITH BIOPSY SINGLE OR MULTIPLE (WRVU 2.39) Social History Tobacco Use Types Packs/Day Years [...] occurs please contact your M.D. Please call [phone] before 5 pm with problems, questions or concerns. After 5pm call [phone] and ask to speak with the head pastry chef pets and pet supplies salesperson. Discharge instructions reviewed with patient who expresses understanding. * Attachments The following attachments cannot be sent through Care Everywhere. * EGD (UPPER ENDOSCOPY): POST-OP (SAMMARINESE) documented in this encounter Medications at Time [...] Diabetic Supplies, [employer]. Misc Form faxed to [employer] for pump supplies. 100 each 12 03/23/2015 losartan (COZAAR) 100 mg Tablet Take 50 mg by mouth daily. 08/11/2014 aspirin 81 mg EC tablet Take 81 mg by mouth daily. insulin lispro (HUMALOG) 100 unit/mL injection Inject 55-60 Units subcutaneously continuous. Via insulin pump insulin lispro (HumaLOG) Solution /01/07/2016 3 amLODIPine (NORVASC) 10 mg Tablet Take [...] as of this encounter H&P Notes * Agapito Parmar MD - 10/24/2016 8:37 AM EDT Gastroenterology and Hepatology Pre-Procedure History and Physical Exam Procedure: EGD: Indication: 56yo F with pmh of HGD Lopez's dx 05/2016 at [facility], 06/2016 [facility] EGD with noted C0M1 Lopez's s/p RFA [...] Electronically signed by: Agapito Parmar Gastroenterology Fellow [facility] Pager [phone] 10/24/2016 documented in this encounter Plan of Treatment Upcoming Encounters Date Type Department Care Team (Late st Contact Info) Description 12/19/2023 1:00 PM EDT Tech Visit [place] [address] Marguerite Macias 12/19/2023 3:00 PM EDT Office Visit [place] [address] Gardenia Golden, [facility] [place] [address] 01/29/2024 1:[address] [place] [address] César Escobar MD [facility] [place] [address] 01/29/2024 2:30 PM EDT Office [place] [address] César Escobar MD [facility] [place] [address] documented as of this encounter Procedures Procedure [...] AM EDT 10/24/2016 9:46 AM EDT Narrative [facility] - 10/24/2016 9:46 AM EDT Specimen requisition ordered. ??Separate Pathology report to follow Agapito Parmar MD PATHOLOGY/CYTOLOGY O JODIE Performing Organization Address City/[facility]/ZIP Co de Phone Number [facility] [place] [address] * Specimen to Pathology (surgical or derm) (10/24/2016 9:46 AM EDT) AP Specimen 10/24/2016 9:46 AM EDT 10/24/2016 9:46 AM EDT Narrative [facility] - 10/24/2016 9:46 AM EDT Specimen requisition ordered. ??Separate Pathology report to follow Agapito Parmar MD PATHOLOGY/[place] [address] * Specimen to Pathology (surgical or derm) (10/24/2016 9:46 AM EDT) AP Specimen 10/24/2016 9:46 AM EDT 10/24/2016 9:46 AM EDT Narrative [facility] - 10/24/2016 9:46 AM EDT Specimen requisition ordered. ??Separate Pathology report to follow Agapito Parmar MD PATHOLOGY/CYTOLOGY O JODIE [facility] [place] [address] * Surgical Pathology Report (10/24/2016 9:45 AM EDT) Final Diagnosis -[id number] ?Location: 4T; EA; A The signing pathologist has (i) examined [...] sing: (T1) ??millicent 10/26/2016 7:28 PM EDT [facility] GI Biopsy 10/24/2016 9:45 AM EDT 10/24/2016 9:45 AM EDT GI Biopsy 10/24/2016 9:45 AM EDT 10/24/2016 9:45 AM EDT GI Biopsy 10/24/2016 9:45 AM EDT 10/24/2016 9:45 AM EDT Consult Case 10/24/2016 9:45 AM EDT 10/24/2016 9:45 AM EDT Agapito Parmar MD PATHOLOGY/CYTOLOGY O RDERABLES [facility] [place] [address] * UPPER GI ENDOSCOPY (10/24/2016 8:56 AM EDT) UPPER GI ENDOSCOPY [facility] Endoscopy Procedure Date: 10/24/2016 8:56 AM ? Patient Name: Jennifer Bob ? Date of : 1960 ? Age: 56 ? Order #: [id number] ? Instrument Name: [id number] ? Procedure: ? Upper GI endoscopy Indications: ? Surveillance for malignancy due to ? personal history of Lopez's ? esophagus Providers: ? Danielle Moncada ? TAMEKA Pacheco, Ava Goss, ? Process Controller Referring : ?Shirley Yu MD Medicines: ? [...] GE ? junction was brushed with the Watshani's brush. 4 ? quadrant Murdo protocol biopsies were taken at the ? [...] Z-line irregular vs C0M1 Lopez's ? s/p Murdo protocol biopsies and ? Liliya mucosal brushing ? - Normal stomach and [...] on filedocumented in this encounter Care Teams Gun Synchronizer Relationship Specialty Start Date End Date Shirley Yu MD [address] [place] [address] PCP - General 11/19/14 documented as of this encounter
--- OUTSIDE RECORDS SUMMARY | 2023-12-13 18:30 | XMS_ITS | Encounter Summary ---
Author Organization [facility] [place] [address] Care Team Providers Care Ship Keeper Name Role Phone Shirley Yu MD Primary Care Provider [phone] Reason for Visit * Reason Comments Diabetes Encounter Details Date Type Department Care Team (Late st Contact Info) Description 08/24/2015 3:00 PM EDT Office Visit [place] [phone] Sandi Haskins, [facility] [place] [address] Diabetes mellitus type 1, uncontrolled Social History Tobacco Use Types Packs/Day Years [...] Sign Reading Time Taken Comments Blood Pressure 141/71 08/24/2015 2:47 PM EDT Pulse 80 08/24/2015 2:47 PM EDT Temperature - - Respiratory Rate - - Oxygen Saturation - - Inhaled Oxygen Concentration - - Weight 102 kg (224 lb 12.8 oz) 08/24/2015 2:47 P M EDT Height 170.2 cm (5' 7) 08/24/2015 2:47 PM EDT Body Mass Index 35.21 08/24/2015 2:47 PM EDT documented in this encounter Patient Instructions * Patient Instructions* Sandi Castro LD - 08/24/2015 3:53 PM EDT Carb Counting 30-45 g of carbs per meal documented in this encounter Progress Notes * Sandi Castro LD - 08/24/2015 3:07 PM EDT Diabetes Management and Medical Nutrition Therapy Jennifer Bob is a very kind 54 y.o. female with Type 1 diabetes for the last 38 yrs. Pt is on a medtronic pump Paradigm 523. She is not currently managing her blood sugars well as her A1c has goneup from 8.6 to 9.6. Recently has had a lot of stress as she took in a 31 yo man who has a disability to help him get back on his feet and it didn't inspector returned materials well. Pt admits that she needs to take better care of herself. Pts GFR is low and discussed that she needs to protect her kidneys with her food choices and insulin. Pt is running high 80% of the time. Average Daily Basal is 55% and bolus is 45%. Pt is not Carb counting. Reviewed how to carb count. Her numbers seem to drop from midnight to 6am and then they increase steadily until she eats next. Pt needs to start counting carbs and may need more insulin to help lower we A1c. Pt is currently not eating any fruits and vegetables- discussedhealthy eating. 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 BP 141/71 ??? Pulse 80 ??? Ht 170.2 cm (5' 7) ??? Wt (!) 102 kg (224 lb 12.8 oz) ??? BMI 35.21 kg/m2 Recent Labs 08/24/15 1423 02/18/15 1011 HA1C 9.6* 8.6* Am snack: zucchinni muffin 10 am Lunch: Whole wheat bread and tuna, frozen chicken ina on onion bun, Dinner: nibbles- doesn't say. No veg or fruits Pt has a lot of BGs in the 300s and 4 >400. Pt only has 2 lows. Educated pt on carb counting and pt seems willing to try. Discussed stress management to help lower BG numbers as well. Pt is on her way in to see RONNIE Corbin APRN. I printed out the pts pump download and discussed pts recent history with Lluvia. Some changes will be made. Please see Lluvia Sifuentes note. 30 mins spent on MNT MARY Baca documented in this encounter Plan of Treatment Upcoming Encounters Date Type Department Care Team (Late st Contact Info) Description 12/19/2023 1:00 PM EDT Tech Visit Vascular Lab at [place] [phone] Marguerite Macias 12/19/2023 3:00 PM EDT Office Visit [place] [address] Gardenia Golden APRN [facility] [place] [address] 01/29/2024 1:[address] [place] [address] César Escobar MD [facility] [place] [address] 01/29/2024 2:30 PM EDT Office [place] [address] César Escobar MD [facility] [place] [address] documented as of this encounter Visit Diagnoses Diagnosis Diabetes mellitus type 1, uncontrolled Type I (juvenile type) diabetes mellitus without mention of complication, uncontrolled documented in this encounter Care Teams Ship Keeper Relationship Specialty Start Date End Date Shirley Yu MD [address] [place] [address] PCP - General 11/19/14 documented as of this encounter
--- OUTSIDE RECORDS SUMMARY | 2023-12-13 18:30 | XMS_ITS | Encounter Summary ---
[place] [address] Care Team Providers Care Account Liaison Name Role Phone Shirley Yu MD Primary Care Provider [phone] Encounter Details Date Type Department Care Team (Late st Contact Info) Description 11/03/2016 [place] [phone] Zenobia Ovalles RN Social History Tobacco Use [...] Telephone Encounter - Zenobia Ovalles RN - 11/03/2016 2:11 PM EDT Received VM from Casandra. She received a call from Dr. Parmar w/meg. She is returning his call. Call placed to Casandra. Advised he sent letter on 11/01. Shared letter via phone. She's is pleased and is in agreement for f/u endoscopy in 1 year. documented in this encounter Plan of Treatment Upcoming Encounters Date Type Department Care Team (Late st Contact Info) Description 12/19/2023 1:00 PM EDT Tech [place] [address] Marguerite Macias 12/19/2023 3:00 PM EDT Office [place] [address] Gardenia Golden, [facility] [place] [address] 01/29/2024 1:[address] [place] [address] César Escobar MD [facility] [place] [address] 01/29/2024 2:30 PM EDT Office [place] [address] César Escobar MD [facility] [place] [address] documented as of this encounter Visit Diagnoses Not on filedocumented in this encounter Care Teams Account Liaison Relationship Specialty Start Date End Date Shirley Yu MD [address] [place] [address] PCP - General 11/19/14 documented as of this encounter
--- OUTSIDE RECORDS SUMMARY | 2023-12-13 18:30 | XMS_ITS | Encounter Summary ---
Author Organization [facility] [place] [address] Care Team Providers Care Insurance Account Manager Name Role Phone Shirley Yu MD Primary Care Provider [phone] Encounter Details Date Type Department Care Team (Late st Contact Info) Description 08/24/2015 3:30 PM EDT Office Visit [place] [address] Lluvia Oropeza [facility] [place] [address] Type 1 diabetes mellitus with stage 4 chronic kidney disease Social History Tobacco Use [...] * Patient Instructions* Lluvia Oropeza APRN - 08/24/2015 3:43 PM EDT Added basal rate at 4:30 AM of 1.5 units to get FBG in AM above 90 Changed target glucose to 100-110 May need to change sensitivity factor from 30 to 25 ( in a week or two) Stationary bike or total gym Start 10 min and increase time by 5 min weekly Vit D 1,000 iu's daily documented in this encounter Progress Notes * Lluvia Oropeza APRN - 08/24/2015 6:15 PM EDT DATE OF VISIT: 08/24/2015 REASON FOR VISIT: Followup type 1 DM, now in very poor control with widely fluctuating glucose levels. Also, hypothyroidism, depression, sleep apnea, overweight. BRIEF HISTORY: Had appointment earlier this afternoon with saxophone assembler. Discusses some higher stress recently. COMPLICATIONS: Retinopathy, nephropathy. DATE OF DIAGNOSIS OF DIABETES: At age 15. DIABETES REGIMEN: MiniMed 523 pump. Basal rates at midnight 1.55; at 6:30 a.m. at 1.3; 12 noon at 1.25; 1600 at 1.3; 2000 at 1.3. Total basal 32.625. Insulin to carb 1:8. Sensitivity 30. Target glucose 100-120. Active insulin 4 hours. REVIEW OF SYSTEMS: Depression and mood: States it bothers her that the male border that was living with them decided not to return to their home. Eyes: Followed closely by direct support staff. No recent headaches or chest pain or shortness of breath. No recent GI symptoms. Appetite is good. Sleep pattern, uses CPAP mask. Extremities: Followed by vascular MD. Has had carotid surgery and stents in her legs. PHYSICAL EXAM: APPEARANCE: She is obese with a larger central girth. EYES: Question of retinopathy with green light exam. NECK: No thyromegaly or lymphadenopathy. HEART: Regular rate and rhythm. No murmurs. LUNGS: Clear to auscultation. FEET: Skin is normal but dry. Pulses are normal. NEURO: Normal sensation to 10 g of pressure. Hemoglobin A1c 9.6%, previous was 8.6%. She is followed by counseling specialist for kidney disease. Creatinine was 1.65 and GFR was 32 in June. SBGM 4 times a day. Reason for higher frequency testing is to avoid severe hypoglycemia and avoid severe hyperglycemia. PHYSICAL ACTIVITY: Plans to use stationary bike and do more walking soon. Reviewed glucose results from [facility]. Will add basal rate at 4:30 a.m. of 1.5 to avoid fasting glucose levels under 90. Will change target glucose to 100-110. Advised patient she may need to change sensitivity factor to 25 in a week or two if glucose levels are not closer to target before meals. Guidelines suggest changing her simvastatin to atorvastatin or rosuvastatin, will discuss further at next visit. In 3 months. Will check hemoglobin A1c. This was a 35 minute office visit with 34 minutes spent counseling [id number] with patient in the management of glucose levels, lowering basal rate at 4:30 a.m., reviewing prevention and treatment of hypoglycemia and stressing the importance of daily physical activity to help lower hemoglobin A1c. Recent Results (from the past 72 hour(s)) Unilat Bypass Graft Assess Result Value Ref Range VB Text Report Department: Vascular Surgery Lab Patient: [id number] (WINTERS JENNIFER) CPT: 26463 ICD10: I73.9 Referring Physician: SARINA WALTERS Indications: History of right TV PRODUCTION ASSISTANT-AK pop BPG; stenosis surveillance ICD10 Diagnosis Code: I73.9 Findings: Right PSV (cm/s) EDV Location Inflow Artery 196 18 Common Femoral Artery, Right Inflow Anastomosis 309 25 Common Femoral Artery, Right Proximal Graft 307 0 High Thigh (Graft) 76 6 Mid Thigh (Graft) 54 8 Distal Graft 58 7 Outflow Anastomosis 97 19 Popliteal Artery, Above Knee Right Outflow Artery (Graft) 86 15 Popliteal Artery, Above Knee Right Interpretation: Patent right TV PRODUCTION ASSISTANT-AK pop bypass graft with elevated velocity at the proximal anastomosis and focal velocity increase in the proximal graft from 112 to 307 cm/s, a 2.7 x step up. The remainder of the bypass graft is patent with no identifiable stenosis. Decrease in velocity at the proximal anastomosis (JMZ=798 cm/s) compared to previous exam (TER=162 cm/s) on 11-19-14. Similar focal velocity step up in the proximal graft (2.7 x) compared to previous exam (2.8 x) on 11-19-14. VB Text Report End of Report SHEFALI, legs, multiple levels Result Value Ref Range VB Text Report Department: Vascular Surgery Lab Patient: [id number] (JENNIFER WINTERS) CPT: 32043 ICD10: I73.9;I27.0 Referring Physician: BRIDGET NAVARRETE Indications: PVOD; history of right TV PRODUCTION ASSISTANT-AK POP BPG, left iliac stenting; ? change in ABIs Diabetes mellitus: Yes ICD10 Diagnosis Code: I73.9 Findings: Right Pressure (mm Hg) SHEFALI Waveform TBI Brachial Artery 165 Dorsalis Pedis (Ankle) Artery 122 0.74 Biphasic-Rev Posterior Tibial (Ankle) Artery 121 0.73 Biphasic-Rev Great Toe 80 0.48 Left Pressure (mm Hg) SHEFALI Waveform TBI Brachial Artery 165 Dorsalis Pedis (Ankle) Artery 87 0.53 Tipton-Biphasic Posteri or Tibial (Ankle) Artery 89 0.54 Tipton-Biphasic Great Toe 63 0.38 Interpretation: RIGHT: Mild to moderate lower extremity arterial occlusive disease. Overall, no significant change compared to previous exam 11-18-14 (increase in DP SHEFALI, no significant change in PT SHEFALI or TBI). LEFT: Moderate lower extremity arterial occlusive disease. No significant change compared to previous exam 11-18-14. Previous ABIs with change from previous value: Date RIGHT DP RIGHT PT RT GR TOE LEFT DP LEFT PT LT GR TOE 0.93 0.93 ---- 0.64 0.66 ---- 0.88(-.05) 0.96(+.03) 0.62 0.44(-.20) 0.52(-.14) 0.38 0.97(+.09) 0.97(+.01) 0.65(+.03) 0.58(+.14) 0.62(+.10) 0.42(+.04) 0.91(-.06) 1.01(+.04) 0.72(+.07) 0.64(+.06) 0.69(+.07) 0.46(+.04) 0.93(+.02) 0.96(-.05) 0.61(-.11) 0.58(-.06) 0.61(-.08) 0.37( -.09) 0.86(-.07) 0.93(-.03) 0.68(+.07) 0.55(-.03) 0.63(+.02) 0.38(+.01) 0.59(-.27) 0.75(-.18) 0.58(-.10) 0.24(-.31) 0.29(-.34) 0.15(-.23) 0.64(+.05) 0.59(-.16) 0.48(-.10) 0.45(+.21) 0.46(+.17) 0.27(+.12) 0.63(-.01) 0.65(+.06) 0.34(-.14) 0.42(-.03) 0.44(-.02) 0.22(-.05) 0.58(-.05) 0.65( .00) 0.43(+.09) 0.46(+.04) 0.48(+.04) 0.27(+.05) Current 0.74(+.16) 0.73(+.08) 0.48(+.05) 0.53(+.07) 0.54(+.06) 0.38(+.11) Electronically Signed by: BRIDGET NAVARRETE on 2015-08-24 02:40:55 PM VB Text Report End of Report Cerebrovascular Duplex, Bilateral Result Value Ref Range VB Text Report Department: Vascular Surgery Lab Patient: [id number] (JENNIFER WINTERS) CPT: 35535 ICD10: I73.9;I65.22 Referring Physician: SARINA WALTERS Indications: s/p left CEA 2000 and right CEA 2004; ? restenosis ICD10 Diagnosis Code: I65.22 Findings: ICA Proximal, Right PSV (cm/s): 83 EDV (cm/s): 36 ICA/CCA: 0.8 Plaque Structure: Echogenic Plaque Surface: Irregular %Stenosis: <15% ICA Distal, Right PSV (cm/s): 64 EDV (cm/s): 22 ICA/CCA: 0.6 CCA Distal, Right PSV (cm/s): 102 EDV (cm/s): 18 %Stenosis: <50% CCA Proximal, Right PSV (cm/s): 84 EDV (cm/s): 10 External Carotid Artery, Right PSV (cm/s): 105 EDV (cm/s): 16 %Stenosis: <50% Vertebral, Right PSV (cm/s): 81 EDV (cm/s): 24 Direction of Flow: Antegrade ICA Proximal, Left PSV (cm/s): 315 EDV (cm/s): 92 ICA/CCA: 4.1 Plaque Structure: Echo genic Plaque Surface: Irregular %Stenosis: 50-69% ICA Distal, Left PSV (cm/s): 96 EDV (cm/s): 40 ICA/CCA: 1.3 CCA Distal, Left PSV (cm/s): 76 EDV (cm/s): 22 %Stenosis: <50% CCA Proximal, Left PSV (cm/s): 81 EDV (cm/s): 17 External Carotid Artery, Left PSV (cm/s): 243 EDV (cm/s): 28 %Stenosis: >50% Vertebral, Left PSV (cm/s): 66 EDV (cm/s): 21 Direction of Flow: Antegrade Interpretation: RIGHT: Plaque [...] carotid artery causes 25-35% stenosis by e-caliper measurem ent. There is bulky irregular plaque in the [...] LEFT ICA Stenosis PSV Ratio <15% 76 0.92 50-59% 225 2.50 <15% 83 0.88 50-59% 241 2.59 Current Exam <15% 83 0.81 50-69% 315 4.14 VB Text Report End of Report Hemoglobin A1c Result Value Ref Range Hemoglobin A1C 9.6 (H) 4.3 - 5.6 % Est Avg Gluc 229 mg/dL TSH Result Value Ref Range TSH 0.95 0.27 - 4.20 mcIU/mL LDL Cholesterol, Direct Result Value Ref Range LDL Chol Direct 80 <=99 mg/dL documented in this encounter Plan of Treatment Upcoming Encounters Date Type Department Care Team (Late st Contact Info) Description 12/19/2023 1:00 PM EDT Tech Visit Vascular Lab at [place] [phone] Marguerite Macias 12/19/2023 3:00 PM EDT Office Visit [place] [address] Gardenia Golden APRN [facility] DR VASCULAR SURGERY [place], [place] [phone] 01/29/2024 1:[address] [place] [address] César Escobar MD [facility] [place] [address] 01/29/2024 2:30 PM EDT Office Visit [place] [address] César Escobar MD [facility] [place] [address] documented as of this encounter Visit Diagnoses Diagnosis Type 1 diabetes mellitus with stage 4 chronic kidney disease Type I (juvenile type) diabetes mellitus with renal manifestations, not stated as uncontrolled documented in this encounter Care Teams Insurance Account Manager Relationship Specialty Start Date End Date Shirley Yu MD [address] [place] [address] PCP - General 11/19/14 documented as of this encounter
--- OUTSIDE RECORDS SUMMARY | 2023-12-13 18:31 | XMS_ITS | Encounter Summary ---
[place] [address] Care Team Providers Care Research Assistant Name Role Phone Geovany Hunt Primary Care Provider [phone] Encounter Details Date Type Department Care Team (Late st Contact Info) Description 11/10/2014 Abstract [place] [phone] Joyce Duarte Social History Tobacco Use Types Packs/Day Years [...] PM EDT Tech [place] [phone] aMrguerite Macias 12/19/2023 3:00 PM EDT Office Visit [place] [address] Gardenia Golden, L[employer] AND FRAMES PRESCRIPTION CLERK [facility] [place] [address] 01/29/2024 1:[address] [place] [phone] César Escobar MD [facility] [place] [address] 01/29/2024 2:30 PM EDT Office Visit [place] [phone] César Escobar MD [facility] [place] [address] documented as of this encounter Visit Diagnoses Not on filedocumented in this encounter Care Teams Research Assistant Relationship Specialty Start Date End Date Geovany Hunt PA [address] [place] [address] PCP - General 10/20/14 11/18/14 documented as of this encounter
--- OUTSIDE RECORDS SUMMARY | 2023-12-13 18:31 | XMS_ITS | Encounter Summary ---
[place] [address] Care Team Providers Care Ear Flap Binder Name Role Phone Shirley Yu MD Primary Care Provider Encounter Details Date Type Department Care Team (Latest Contact Info) Description 01/14/2015 12:25 PM EDT Laboratory Appointment Lab [address] [place] [address] Proteinuria; Leg swelling; CKD (chronic kidney disease), stage III Social History Tobacco Use Types [...] PM EDT Tech [place] [address] Marguerite Macias 12/19/2023 3:00 PM EDT Office [place] [address] Gardenia Golden, [facility] [place] [address] 01/29/2024 1:[address] Scan [place] [facility] [place] [address] César Escobar MD [facility] THORACIC SURGERY [place], [place] [phone] 01/29/2024 2:30 PM EDT Office [place] [address] César Escobar MD [facility] THORACIC SURGERY [place], [place] [phone] documented as of this encounter Procedures Procedure Name Priority Date/Time Associated Diagnosis Comments U ALBUMIN/CRE RATIO Routine 01/14/2015 1 :10 PM EDT Proteinuria Leg swelling CKD (chronic kidney disease), stage III HEMOGRAM Routine 01/14/2015 12:44 PM EDT Proteinuria Leg swelling CKD (chronic kidney disease), stage III DIFFERENTIAL, AUTOMATED Routine 01/14/2015 12:44 PM EDT Proteinuria Leg swelling CKD (chronic kidney disease), stage III CBC (WITH DIFF) Routine 01/14/2015 12:44 PM EDT Proteinuria Leg swelling CKD (chronic kidney disease), stage III PHOSPHORUS Routine 01/14/2015 12:44 PM EDT Proteinuria Leg swelling CKD (chronic kidney disease), stage III BASIC METABOLIC PANEL Routine 01/14/2015 12:44 PM EDT Proteinuria Leg swelling CKD (chronic kidney disease), stage III documented in this encounter Results * Microalbumin, urine, random (01/14/2015 1:10 PM EDT) Creatinine, Urine 39 mg/dL CE RNER MILLENNIUM Albumin, Urine 33.6 mg/L KERRIE R MILLENNIUM Albumin / Creatinin Ratio, Urine 86 mcg/mg Cr CERNER MILLENNIUM Comment: Reference Range* Random collection (mcg/mg creatinine) Normal ?<30 Microalbuminuria ?? 30 - 300 Clinical Albuminuria ?? >300 *[place] [employer]. Diabetic Nephropathy. Diabetes Care 1997;(Suppl 1):S24-S27 Exercise within 24 hour, infection, fever, CHF, marked hyperglycemia, and marked hypertension may elevate urinary albumin excretion over baseline values. Urine specimen (specimen) 01/14/2015 1:10 PM EDT 01/14/2015 1:33 PM EDT Narrative Resulting Agency Comment Spec In Lab Rafi Bateman MD URINE ORDERABLES CERNER MILLENNIUM * Differential, Automated (01/14/2015 12:44 PM EDT) Neutrophil % 64.4 % CERNER MILLENNIUM Neutrophil Absolute 5.25 1.50 - 6.30 x10(3)/mcL CERNER MILLENNIUM Lymph % 27.3 % CERNER MILLENNIUM Lymphocytes Abs 2.2 1.0 - 3.6 x10(3)/mcL CERNER MILLENNIUM Monocyte % 4.5 % CERNER MILLENNIUM Monocyte Abs 0.4 0.2 - 1.0 x10(3)/mcL CERNER MILLENNIUM Eos % 3.5 % CERNER MILLENNIUM Eosinophils Abs 0.3 0.0 - 0.5 x10(3)/mcL CERNER MILLENNIUM Basophil % 0.2 % CERNER MILLENNIUM Baso Absolute 0.0 0.0 - 0.2 x10(3)/mcL CERNER MILLENNIUM Immature Gran % 0.10 % CERN ER MILLENNIUM Comment: Immature granulocytes(IG's)percentage and absolute count will include metamyelocytes, myelocytes, and promyelocytes. Blood smears from CBCs yielding IG's will be scanned manually for concordance. If this scan disagrees with the automated IG or if promyelocytes are noted, a manual differential will be performed. Immature Gran Absolute 0.01 0.00 - 0.05 x10(3)/mcL CERNER MILLENNIUM Blood specimen (specimen) 01/14/2015 12:44 PM EDT 01/14/2015 12:53 PM EDT Narrative Resulting Agency Comment Spec In Lab Rafi Bateman MD HEMATOLOGY ORDERA BLES CERNER MILLENNIUM * (ABNORMAL) Hemogram (01/14/2015 12:44 PM EDT) White Blood Cell 8.2 4.0 - 10.0 x10(3)/mc L CERNER MILLENNIUM Red Blood Cell 4.23 3.93 - 5.22 x10(6)/mc L CERNER MILLENNIUM Hemoglobin 12.9 11.2 - 15.7 gm/dL CERNER MILLENNIUM Hematocrit 39.6 34.0 - 45.0 % CERNER MILLENNIUM Mean Cell Volume 93.6 79.0 - 94.0 fL CERNER MILLENNIUM Mean Cell Hemoglobin 30.5 26.6 - 32.2 pg CERNER MILLENNIUM Mean Cell Hemoglobin Concentration 32.6 32.0 - 36.5 gm/dL CERNER MILLENNIUM Platelet 246 145 - 370 x10(3)/mc L CERNER MILLENNIUM RDW Standard Deviation 47.7(H) 35.0 - 46.0 fL CERNER MILLENNIUM RDW coefficient of variation 13.9 10.9 - 14.4 % CERNER MILLENNIUM Mean Platelet Volume 10.6 9.0 - 12.0 fL CERNER MILLENNIUM Blood specimen (specimen) 01/14/2015 12:44 PM EDT 01/14/2015 12:53 PM EDT Narrative Resulting Agency Comment Spec In Lab Rafi Bateman MD HEMATOLOGY ORDERA BLES CERJESSICA MILLENNIUM * Phosphorus (01/14/2015 12:44 PM EDT) Phosphorus 3.9 2.5 - 4.5 mg/dL CERNER MILLENNIUM Blood specimen (specimen) 01/14/2015 12:44 PM EDT 01/14/2015 12:53 PM EDT Narrative Resulting Agency Comment Spec In Lab Rafi Bateman MD CHEMISTRY ORDERAB LES CERNER NATHALIEENNIUM * (ABNORMAL) Basic Metabolic Panel (non-fasting) (01/14/2015 12:44 PM EDT) Glucose 216(H) 65 - 199 mg/dL CERNER MILLENNIUM Comment:Diabetes: >=200 mg/d L plus symptoms Blood Urea Nitrogen 26(H) 8 - 18 mg/dL CERNER MILLENNIUM Creatinine 1.61(H) 0.70 - 1.20 mg/dL CERNER MILLENNIUM Comment: Please note that the pediatric reference intervals supplied above were not validated at [facility]. Results from pediatric patients should be interpreted in conjunction to the patient's age, height and muscle mass. Sodium 139 135 - 145 mmol/L CERNER MILLENNIUM Potassium 5.1(H) 3.5 - 5.0 mmol/L CERNER MILLENNIUM Comment: Please note: ??Patients with WBC >100,000 may have falsely elevated Potassium levels. ??For accurate Potassium quantification in these patients send serum separator tube (gold top) for subsequent determinations. ??Contact the Clinical Chemistry Laboratory if there are any questions. Chloride 99 98 - 107 mmol/L CERNER MILLENNIUM Carbon Dioxide 25 22 - 31 mmol/L CERNER MILLENNIUM Anion Gap 15 5 - 15 mmol/L CERNER MILLENNIUM Calcium 9.3 8.5 - 10.5 mg/dL CERNER MILLENNIUM Est Glomerular Filtration Rate 33(L) >=60 CERNER MILLENNIUM Comment: This estimated GFR (eGFR) value was [...] the following links into your internet browser. [email or web address] Blood specimen (specimen) 01/14/2015 12:44 PM EDT 01/14/2015 12:53 PM EDT Narrative Resulting Agency Comment Spec In Lab Rafi Bateman MD CHEMISTRY ORDERAB LES [facility] documented in this encounter Visit Diagnoses Diagnosis Proteinuria Leg swelling Swelling of limb CKD (chronic kidney disease), stage III Chronic kidney disease, Stage III (moderate) documented in this encounter Care Teams Ear Flap Binder Relationship Specialty Start Date End Date Shirley Yu MD [address] [place] [address] PCP - General 11/19/14 documented as of this encounter
--- OUTSIDE RECORDS SUMMARY | 2023-12-13 18:31 | XMS_ITS | Encounter Summary ---
Author Organization [facility] Address [facility] [place] [place] [address] Care Team Providers Care Architectural Draftsperson Name Role Phone Shirley Yu MD Primary Care Provider [phone] Encounter Details Date Type Department Care Team (Late st Contact Info) Description 02/18/2015 11:30 AM EST Office [place] [address] Carmen Arredondo LD [facility] DR ENDOCR[place] [address] Diabetes mellitus type 1, uncontrolled Social History [...] as of this encounter Progress Notes * Carmen Arredondo LD - 02/18/2015 5:15 PM EST Diabetes Education: Casandra has type 1 diabetes and brought in her new pump - upgraded Settings entered into her new MiniMed pump: Basal rates; 12 a.m. 1.4, 4 a.m. 1.45, 6:30 1.4, 16:30 1.5, 1800 1.45, 21:30 1.1. Total basal is 33.3 units and 57% of TDD. Insulin to carb 1:10. (she does not use this but figures amount of insulin needed in her head and boluses accordingly) Sensitivity 30. Target glucose 100 to 120. Active insulin four hours. She does enter BG into her pump for correction Changed ratio to 1:8 and asked her to either enter carb into pump or figure otherwise. Erich contour next meter linked to pump To check 3 - 4 x a day for better dm control documented in this encounter Plan of Treatment Upcoming Encounters Date Type Department Care Team (Late st Contact Info) Description 12/19/2023 1:00 PM EDT Tech Visit Vascular Lab at [place] [phone] Marguerite Macias 12/19/2023 3:00 PM EDT Office Visit Vascular Surgery at [place] [phone] Gardenia Golden APRN [facility] [place] [address] 01/29/2024 1:[address] [place] [place] [phone] César Escobar MD [facility] DR [place] [address] 01/29/2024 2:30 PM EDT Office [place] [phone] César Escobar MD [facility] DR [place] [address] documented as of this encounter Visit Diagnoses Diagnosis Diabetes mellitus type 1, uncontrolled Type I (juvenile type) diabetes mellitus without mention of complication, uncontrolled documented in this encounter Care Teams Architectural Draftsperson Relationship Specialty Start Date End Date Shirley Yu MD [address] [place] [address] PCP - General 11/19/14 documented as of this encounter
--- OUTSIDE RECORDS SUMMARY | 2023-12-13 18:31 | XMS_ITS | Encounter Summary ---
Author Organization [facility] [place] [address] Care Team Providers Care Direct Support Professional Name Role Phone Shirley Yu MD Primary Care Provider [phone] Encounter Details Date Type Department Care Team (Late st Contact Info) Description 10/02/2014 Orders Only Nephrology [place] [address] Michelle Kelly MD [facility] [place] [address] CKD (chronic kidney disease) stage 3, GFR 30-59 ml/min Social History Tobacco Use Types Packs/Day Years Used Date Smoking Tobacco: Some Days Cigarettes Smokeless Tobacco: Never Alcohol Use Standard Drinks/Week Comments No 0 (1 standard drink = 0.6 oz pur e alcohol) Sex and Gender Information Value Date Recorded Sex Assigned at Not on file Gender Identity Not on file Sexual Orientation Not on file documented as of this encounter Progress Notes * Michelle Kelly - 10/02/2014 3:59 PM EDT Called and left VM to repeat a BMP in a week. Her previous box printer was also 1.7 when she got a fasting lab draw. We ll repeat it in a week to make sure its stable. F/u early if feeling poorly. documented in this encounter Plan of Treatment Upcoming Encounters Date Type Department Care Team (Late st Contact Info) Description 12/19/2023 1:00 PM EDT Tech Visit Vascular Lab at [place] [phone] GeraldpoonamRosa brookeMarguerite L 12/19/2023 3:00 PM EDT Office Visit [place] [address] Gardenia Golden APRN [facility] [place] [place] [address] 01/29/2024 1:[address] [place] [address] César Escobar MD [facility] [place] [address] 01/29/2024 2:30 PM EDT Office [place] [address] César Escobar MD [facility] [place] [address] documented as of this encounter Visit Diagnoses Diagnosis CKD (chronic kidney disease) stage 3, GFR 30-59 ml/min Chronic kidney disease, Stage III (moderate) documented in this encounter Care Teams Direct Support Professional Relationship Specialty Start Date End Date Shirley Yu MD [address] [place] [address] PCP - General 03/02/10 10/19/14 documented as of this encounter
--- OUTSIDE RECORDS SUMMARY | 2023-12-13 18:31 | XMS_ITS | Encounter Summary ---
Author Organization [facility] [place] [address] Care Team Providers Care Telephone Operators Supervisor Name Role Phone Shirley Yu MD Primary Care Provider Reason for Visit * Reason Comments PDR s/p PRP OD done 02/09 Encounter Details Date Type Department Care Team (Late st Contact Info) Description 04/18/2013 9:30 AM EST [place] [address] Timothy Vega MD [facility] [place] [address] Proliferative diabetic retinopathy, left eye; PDR (proliferative diabetic retinopathy); Right posterior subcapsular polar cataract Discharge Disposition: Home Social History Tobacco Use [...] Progress Notes * Timothy Vega MD - 04/18/2013 10:49 AM EST April 19, 2013 Gomez Figueroa OD [employer] [address] [place] [address] Re: Jennifer Bob A#: [id number] Figueroa: I would like Jennifer Bob to see you sometime within the next several weeks for evaluation. Over the past several months, she has undergone extensive panretinal laser photocoagulation in each eye. I am pleased to see that the hemorrhages have largely resolved, and there is no evidence of active neovascularization or traction. However, she notes gradual reduction in visual acuity. This is clearly attributable to an advanced posterior subcapsular cataract in the right eye. The degree of cataract is such that I am not able to confirm or exclude the presence of any diabetic macular edema. I think there is a strong relative indication to proceed with cataract surgery fairly soon for visual rehabilitation, but also for diagnostic purposes as well. I have asked Jennifer to return to see me in three months and to return to see you as soon as possible. She will call your office for an appointment, but you may wish to have your office staff call her as well. Jennifer's phone number is [phone]. Overall, we have made terrific progress, and I think she has a good prognosis. The importance of blood sugar control and close followup was advised. Thank you very much for asking me to see her. Respectfully, Timothy Vega MD documented in this encounter Plan of Treatment Upcoming Encounters Date Type Department Care Team (Late st Contact Info) Description 12/19/2023 1:00 PM EDT Tech [place] [phone] Marguerite Macias 12/19/2023 3:00 PM EDT Office [place] [phone] Gardenia Golden, PLANT TECH [facility] [place] [address] 01/29/2024 1:[address] [place] [place] [address] César Escobar MD [facility] [place] [address] 01/29/2024 2:30 PM EDT Office [place] [address] César Escobar MD [facility] [place] [address] documented as of this encounter Visit Diagnoses Diagnosis Proliferative diabetic retinopathy, left eye Type II or unspecified type diabetes mellitus with ophthalmic manifestations, not stated as uncontrolled PDR (proliferative diabetic retinopathy) Type II or unspecified type diabetes mellitus with ophthalmic manifestations, not stated as uncontrolled Right posterior subcapsular polar cataract Posterior subcapsular polar cataract, nonsenile documented in this encounter Care Teams Telephone Operators Supervisor Relationship Specialty Start Date End Date Shirley Yu MD [address] [place] [address] PCP - General 03/02/10 10/19/14 documented as of this encounter
--- OUTSIDE RECORDS SUMMARY | 2023-12-13 18:31 | XMS_ITS | Encounter Summary ---
Author Organization [facility] [place] [address] Care Team Providers Care Rubber Factory Worker Name Role Phone Zofia Yu MD Primary Care Provider [phone] Encounter Details Date Type Department Care Team (Latest Contact Info) Description 06/13/2014 9:00 AM EST Office Visit [place] [address] Rafi Denny MD [facility] [place] [address] Michelle Kelly MD [facility] [place] [address] Type 1 diabetes mellitus with diabetic nephropathy Discharge Disposition: Home Social History Tobacco Use [...] Sign Reading Time Taken Comments Blood Pressure 149/64 06/12/2014 12:24 PM EST Pulse 89 06/12/2014 12:24 PM EST Temperature - - Respiratory Rate - - Oxygen Saturation - - Inhaled Oxygen Concentration - - Weight 103.4 kg (228 lb) 06/12/2014 12:24 PM EST Height 170.2 cm (5' 7) 06/12/2014 12:24 PM EST Body Mass Index 35.71 06/12/2014 12:24 PM EST documented in this encounter Progress Notes * Gerda Kellyam - 06/19/2014 11:59 AM EDT 24 hr BP monitor: ( duration, 23:36) AV/66( 80) Wake period : 133/67 ( 82) Sleep period : 131/60 ( 72) Dipping: systolic :1.6% / 10.5% Pt called and voice mail left for the patient. Will likely shift her amlodipine 10 mg to bed time, Spoke with pt and confirmed above The above 24 hour ABPM result was reviewed with Dr. Kelly. BP reasonably well controlled, though no night time BP dip; therefore we have changed amlodipine to pm dose. * Rafi Denny MD - 06/16/2014 3:59 PM EDT The relevant details regarding Jennifer Bob were reviewed with Dr. Kelly. The assessment and plan were formulated in discussion with me and I agree with them as documented, with the following additions. I have seen and examined the patient, providing the parham components as outlined below. I agree with Dr. Kelly's exam findings. Patient has chronic kidney disease, stage G3b, A2, likely secondary to diabetes mellitus. Blood pressure control is uncertain so she will wear a 24 hour ABPM. Agree with baseline echocardiogram but will leave this to Dr. Yu. * RobinMichelle - 06/13/2014 9:54 AM EST [facility] Nephrology/Hypertension Follow Up Jennifer Bob [id number] 1960 ID: [id number] y.o. female for new consult regarding diabetic nephropathy PAST MEDICAL HX: DM type 1 since 16 years HTN HLD Tobacco abuse PVD Fem pop bypass surgery Carotid endarterectomy Depression HPI : Ms Bob is a 53 y o female with PMH as above, who comes to the clinic to establish care. She has been dealing with many complications related to Diabetes. DM has not been very well controlled. She checks her BP once a day usually and it usually stays btw 120s-160s. She has been on lisinopril for many years until it was changed to losartan 100 mg 4-5 years ago due to cough. She was also started on 10 mg of amlodipine recently. She denies any urinary symptoms. She uses an insulin pump Still smoked 0.5 ppd. ROS: -no fever, chills, night sweats -no headache, blurring of vision, diplopia -no dysphagia, hearing problems -no chest pain, palpitation, no HILL, orthopnea -no cough or SOB -no abdominal pain, nausea, vomiting or diarrhea -no rash -no neuropathy -no LE swelling -no change in mood -no heat or cold intolerance Medications: Prior to Admission medications Medication Sig Start Date End Date Taking? Authorizing Provider amLODIPine (NORVASC) 10 mg Tablet Take 10 mg by mouth daily. Yes Provider, Historical cilostazol (PLETAL) 100 mg tablet Take 1 tablet by mouth 2 times daily. 10/15/12 Yes Abiodun Avendano MD CYANOCOBALAMIN, VITAMIN B-12, (VITAMIN B-12 ORAL) Take by mouth daily. Yes Provider, Historical Magnesium 250 mg Tab Take by mouth daily. Yes Provider, Historical aspirin 81 mg EC tablet Take 81 mg by mouth daily. Yes Provider, Historical citalopram (CELEXA) 20 mg tablet Take 20 mg by mouth daily. Yes Provider, Historical levothyroxine (SYNTHROID) 100 mcg tablet Take 100 mcg by mouth daily. Yes Provider, Historical simvastatin (ZOCOR) 40 mg tablet Take 40 mg by mouth nightly. Yes Provider, Historical dabigatran (PRADAXA) 150 mg capsule Take 150 mg by mouth 2 times daily. Yes Provider, Historical insulin lispro (HUMALOG) 100 unit/mL injection Inject 55-60 Units subcutaneously continuous. Via insulin pump Yes Provider, Historical Allergies / ADRs: Allergies Allergen Reactions ??? Sulfa (Sulfonamide Antibiotics) Other (See Comments) Renal failure, bleeding ??? Penicillins Unknown History Social History ??? Marital Status: Spouse Name: N/A Number of Children: N/A ??? Years of Education: N/A Social History Main Topics ??? Smoking status: Current Some Day Smoker -- 0.00 packs/day Types: Cigarettes ??? Smokeless tobacco: Never Used ??? Alcohol Use: No ??? Drug Use: None ??? Sexual Activity: None Other Topics Concern ??? None Social History Narrative Family History Problem Relation Age of Onset ??? Cataracts Mother ??? Diabetes Father ??? Heart Disease Father ??? Cancer Maternal Grandmother ??? Thyroid Disease Neg Hx ??? Stroke Neg Hx ??? Strabismus Neg Hx ??? Retinal Detachment Neg Hx ??? Macular Degeneration Neg Hx ??? Hypertension Neg Hx ??? Glaucoma Neg Hx ??? Blindness Neg Hx ??? Amblyopia Neg Hx Son with kidney transplant sec to IgA nephropathy. PHYSICAL EXAM: Filed Vitals: 06/12/14 1224 BP: 149/64 Pulse: 89 Gen - AAO x 3 in NAD Skin - No rash HEENT - Moist mucous membranes Chest: Lungs clear to auscultation, no wheezes/ rhonchi/ crackles. Heart - S1/S2 normal, no murmur, gallop, or rub. JVP not elevated. Abd - Soft. + BS. No bruit. Non tender. No organomegaly. Ext - Warm. No cyanosis. No dependent edema. Labs/ Imaging: Recent Results (from the past 24 hour(s)) BASIC METABOLIC PANEL (NON-FASTING) Result Value Ref Range Glucose Lvl 201 (*) 60 - 199 mg/dL BUN 26 (*) 8 - 18 mg/dL Creatinine 1.49 (*) 0.70 - 1.20 mg/dL Sodium 142 135 - 145 mmol/L Potassium 4.9 3.5 - 5.0 mmol/L Chloride 103 98 - 107 mmol/L CO2 25 22 - 31 mmol/L Anion Gap 14 5 - 15 mmol/L Calcium 9.5 8.5 - 10.5 mg/dL Estimated GFR 36 (*) >=60 PHOSPHORUS Result Value Ref Range Phosphorus 3.9 2.5 - 4.5 mg/dL PTH Result Value Ref Range PTH 40 15 - 65 pg/mL HEMOGRAM Result Value Ref Range WBC 7.3 4.0 - 10.0 x10(3)/mcL RBC 4.08 3.93 - 5.22 x10(6)/mcL Hemoglobin 12.2 11.2 - 15.7 gm/dL Hematocrit 37.6 34.0 - 45.0 % MCV 92.2 79.0 - 94.0 fL MCH 29.9 26.6 - 32.2 pg MCHC 32.4 32.0 - 36.5 gm/dL Platelets 261 145 - 370 x10(3)/mcL RDWSD 45.0 35.0 - 46.0 fL RDWCV 13.4 10.9 - 14.4 % MPV 10.7 9.0 - 12.0 fL DIFFERENTIAL, AUTOMATED Result Value Ref Range Neutrophils % 69.8 Neutr Abs (ANC) 5.10 1.50 - 6.30 x10(3)/mcL Lymphocytes % 22.6 Lymphocytes Abs 1.6 1.0 - 3.6 x10(3)/mcL Monocytes % 4.2 Monocyte Abs 0.3 0.2 - 1.0 x10(3)/mcL Eosinophils % 2.9 Eosinophils Abs 0.2 0.0 - 0.5 x10(3)/mcL Basophils % 0.4 Basophils Abs 0.0 0.0 - 0.2 x10(3)/mcL Immature Gran % 0.10 Leatha Gran Abs 0.01 0.00 - 0.05 x10(3)/mcL Results for JENNIFER BOB ( ) as of 06/16/2014 15:58 Ref. Range 11/26/2012 15:18 03/04/2013 10:49 06/13/2014 09:00 U Creatinine No range found 65 83 34 Prot/Cre Ratio No range found 0.3 U Protein Ran Latest Range: 0-12 mg/dL 10 U Ran Malb Calc No range found 38 107 U Ran Malb Conc No range found 25.0 88.8 Ua dipstick showed no casts, some epithelial cells, trace monomorphic RBCs, no protein no crystals.. 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 Cont with amlodipine and losartan 100 mg for now.. Repeat Cr is still 1.5, today; 1.7 was likely due to fasting last time.. Will suggest a baseline echocardiogram to her pcp considering her previous history Follow up: 6 months with labs Or will decide after we get the ambulatory BP readings. Seen and Discussed w/ Dr. Fransico Kelly MD Nephrology Fellow Pager# [phone] ZOFIA YU MD [address] [place], [place] [address] documented in this encounter Miscellaneous Notes * Addendum Note - Rafi Denny MD - 06/16/2014 4:02 PM EDTAddended by: RAFI DENNY on: 06/16/2014 04:02 PM Modules accepted: Level of Service documented in this encounter Plan of Treatment Upcoming Encounters Date Type Department Care Team (Late st Contact Info) Description 12/19/2023 1:00 PM EDT Tech [place] [address] Marguerite Macias 12/19/2023 3:00 PM EDT Office [place] [address] Gardenia Golden, [facility] [place] [address] 01/29/2024 1:[address] [place] [place] [address] César Escobar MD [facility] [place] [address] 01/29/2024 2:30 PM EDT Office [place] [address] César Escobar MD [facility] [place] [address] documented as of this encounter Procedures Procedure Name Priority Date/Time Associated Diagnosis Comments PTH Routine 06/13/2014 10:34 AM EST Type 1 diabetes mellitus with diabetic nephropathy HEMOGRAM Routine 06/13/2014 10:34 AM EST Type 1 diabetes mellitus with diabetic nephropathy DIFFERENTIAL, AUTOMATED Routine 06/13/2014 10:34 AM EST Type 1 diabetes mellitus with diabetic nephropathy CBC (WITH DIFF) Routine 06/13/2014 10:34 AM EST Type 1 diabetes mellitus with diabetic nephropathy PHOSPHORUS Routine 06/13/2014 10:34 AM EST Type 1 diabetes mellitus with diabetic nephropathy BASIC METABOLIC PANEL Routine 06/13/2014 10:34 AM EST Type 1 diabetes mellitus with diabetic nephropathy PROTEIN/CREATININE RATIO, URINE Routine 06/13/2014 9:00 AM EST Type 1 diabetes mellitus with diabetic nephropathy documented in this encounter Results * Differential, Automated (06/13/2014 10:34 AM EST) Neutrophil % 69.8 % CERNER MILLENNIUM Neutrophil Absolute 5.10 1.50 - 6.30 x10(3)/mcL CERNER MILLENNIUM Lymph % 22.6 % CERNER MILLENNIUM Lymphocytes Abs 1.6 1.0 - 3.6 x10(3)/mcL CERNER MILLENNIUM Monocyte % 4.2 % CERNER MILLENNIUM Monocyte Abs 0.3 0.2 - 1.0 x10(3)/mcL CERNER MILLENNIUM Eos % 2.9 % CERNER MILLENNIUM Eosinophils Abs 0.2 0.0 - 0.5 x10(3)/mcL CERNER MILLENNIUM Basophil % 0.4 % CERNER MILLENNIUM Baso Absolute 0.0 0.0 [...] 0.05 x10(3)/mcL CERNER MILLENNIUM Blood specimen (specimen) 06/13/2014 10:34 AM EST 06/13/2014 10:43 AM EST Narrative Resulting Agency Comment Spec In Lab Rafi Denny MD HEMATOLOGY ORDERA BLES CERNER MILLENNIUM * Hemogram (06/13/2014 10:34 AM EST) White Blood Cell 7.3 4.0 - 10.0 x10(3)/mcL CERNER MILLENNIUM Red Blood Cell 4.08 3.93 - 5.22 x10(6)/mcL CERNER MILLENNIUM Hemoglobin 12.2 11.2 - 15.7 gm/dL CERNER MILLENNIUM Hematocrit 37.6 34.0 - 45.0 % CERNER MILLENNIUM Mean Cell Volume 92.2 79.0 - 94.0 fL CERNER MILLENNIUM Mean Cell Hemoglobin 29.9 26.6 - 32.2 pg CERNER MILLENNIUM Mean Cell Hemoglobin Concentration 32.4 32.0 - 36.5 gm/dL CERNER MILLENNIUM Platelet 261 145 - 370 x10(3)/mcL CERNER MILLENNIUM RDW Standard Deviation 45.0 35.0 - 46.0 fL CERNER MILLENNIUM RDW coefficient of variation 13.4 10.9 - 14.4 % CERNER MILLENNIUM Mean Platelet Volume 10.7 9.0 - 12.0 fL CERNER MILLENNIUM Blood specimen (specimen) 06/13/2014 10:34 AM EST 06/13/2014 10:43 AM EST Narrative Resulting Agency Comment Spec In Lab Rafi Denny MD HEMATOLOGY ORDERA BLES Performing Organization Address City/[facility]/ZIP Co de Phone Number [facility] * PTH (06/13/2014 10:34 AM EST) Parathyroid Hormone 40 15 - 65 pg/mL CERNER MILLENNIUM Blood specimen (specimen) 06/13/2014 10:34 AM EST 06/13/2014 10:43 AM EST Narrative Resulting Agency Comment Spec In Lab Rafi Denny MD CHEMISTRY ORDERAB LES Performing Organization Address City/[facility]/ZIP Co de Phone Number [facility] MILLENNIUM * Phosphorus (06/13/2014 10:34 AM EST) Phosphorus 3.9 2.5 - 4.5 mg/dL CERNER MILLENNIUM Blood specimen (specimen) 06/13/2014 10:34 AM EST 06/13/2014 10:43 AM EST Narrative Resulting Agency Comment Spec In Lab Rafi Denny MD CHEMISTRY ORDERAB LES Performing Organization Address [facility] Co de Phone Number [facility] MILLENNIUM * (ABNORMAL) Basic Metabolic Panel (non-fasting) (06/13/2014 10:34 AM EST) Glucose 201(H) 60 - 199 mg/dL CERNER MILLENNIUM Comment:Diabetes: >=200 mg/d L plus symptoms Blood Urea Nitrogen 26(H) 8 - 18 mg/dL CERNER MILLENNIUM Creatinine 1.49(H) 0.70 - 1.20 mg/dL CERNER MILLENNIUM Comment: Please note that the pediatric reference intervals supplied above were not validated at [facility]. Results from pediatric patients should be interpreted in conjunction to the patient's age, height and muscle mass. Sodium 142 135 - 145 mmol/L CERNER MILLENNIUM Potassium 4.9 3.5 - 5.0 mmol/L CERNER MILLENNIUM Comment: Please note: ??Patients with WBC >100,000 may have falsely elevated Potassium levels. ??For accurate Potassium quantification in these patients send serum separator tube (gold top) for subsequent determinations. ??Contact the Clinical Chemistry Laboratory if there are any questions. Chloride 103 98 - 107 mmol/L CERNER MILLENNIUM Carbon Dioxide 25 22 - 31 mmol/L CERNER MILLENNIUM Anion Gap 14 5 - 15 mmol/L CERNER MILLENNIUM Calcium 9.5 8.5 - 10.5 mg/dL CERNER MILLENNIUM Est Glomerular Filtration Rate 36(L) >=60 CERNER MILLENNIUM Comment: This estimated GFR [...] the following links into your internet browser. [email or web address] Blood specimen (specimen) 06/13/2014 10:34 AM EST 06/13/2014 10:43 AM EST Narrative Resulting Agency Comment Spec In Lab Rafi Denny MD CHEMISTRY ORDERAB LES MARCO SIEGEL * Protein/Creatinine Ratio, urine (06/13/2014 9:00 AM EST) Creatinine, Urine 34 mg/dL CERNER MILLENNIUM Protein, Urine 10 0 - 12 mg/dL CERNER MILLENNIUM Protein / Creatinine Ratio, Urine 0.3 ratio CERNER MILLENNIUM Urine specimen (specimen) 06/13/2014 9:00 AM EST 06/13/2014 4:55 PM EST Narrative Resulting Agency Comment Spec In Lab Rafi Denny MD URINE ORDERABLES MARCO SIEGEL documented in this encounter Visit Diagnoses Diagnosis 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
--- OUTSIDE RECORDS SUMMARY | 2023-12-13 18:31 | XMS_ITS | Encounter Summary ---
[place] [address] Care Team Providers Care Manager Plumbing Name Role Phone Geovany Hunt Primary Care Provider [phone] Encounter Details Date Type Department Care Team (Late st Contact Info) Description 10/29/2014 Abstract Solid [place] [address] Joyce Duarte Social History Tobacco Use Types [...] PM EDT Tech Visit [place] [address] Marguerite Macias 12/19/2023 3:00 PM EDT Office Visit [place] [address] Gardenia Golden, CARDIOVASCULAR TECH [facility] [place] [address] 01/29/2024 1:[address] [place] [address] César Escobar MD [facility] [place] [address] 01/29/2024 2:30 PM EDT Office Visit [place] [address] César Escobar MD [facility] [place] [address] documented as of this encounter Visit Diagnoses Not on filedocumented in this encounter Care Teams Manager Plumbing Relationship Specialty Start Date End Date Geovany Hunt PA [address] [place] [address] PCP - General 10/20/14 11/18/14 documented as of this encounter
--- OUTSIDE RECORDS SUMMARY | 2023-12-13 18:31 | XMS_ITS | Encounter Summary ---
[place] [address] Care Team Providers Care Mattress Inspector Name Role Phone Geovany Hunt Primary Care Provider [phone] Encounter Details Date Type Department Care Team (Late st Contact Info) Description 11/03/2014 Notes Only [place] [address] Mary Gonzalez RN Social History Tobacco Use Types Packs/Day [...] as of this encounter Progress Notes * Mary Nichole RN - 11/03/2014 3:06 PM EDT Jennifer Bob was discussed during Multidiciplinary care meeting on October. The Team feels that Mrs. Bob is not a candidate for Kidney/Pancreas Transplant right now. The Team believes that she is a high risk candidate for pancreas transplantation alone based upon her age and significant vascular disease history. She has known bilateral peripheral vascular diseasewith evidence of recurrent left SANDI in- stent stenosis that has required repeated stenting. 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 Given her significant vascular history, Dr. Martinez favor coronary catheterization prior to consideration for transplantation since the IV contrast agent could push her towards dialysis therapy. Though Mrs Bob is only interested in Pancreas Transplant, Dr. Martinez explained that a Kidney transplant would be more helpfull to her than pancreas transplant alone. She is aware to call the office when her GFR falls below 20, by then will be evaluated for Kidney and Pancreas Transplantation. documented in this encounter Plan of Treatment Upcoming Encounters Date Type Department Care Team (Late st Contact Info) Description 12/19/2023 1:00 PM EDT Tech [place] [address] Marguerite Macias 12/19/2023 3:00 PM EDT Office [place] [address] Gardenia Golden, LADARI[facility] [place] [address] 01/29/2024 1:[address] [place] [address] César Escobar MD [facility] [place] [address] 01/29/2024 2:30 PM EDT Office [place] [address]1000 César Escobar MD [facility] DR THORACIC SURGERY [place], [place] [id number] documented as of this encounter Visit Diagnoses Not on filedocumented in this encounter Care Teams Mattress Inspector Relationship Specialty Start Date End Date Geovany Hunt PA [address] [place] [address] PCP - General 10/20/14 11/18/14 documented as of this encounter
--- OUTSIDE RECORDS SUMMARY | 2023-12-13 18:31 | XMS_ITS | Encounter Summary ---
Author Organization [facility] [place] [address] Care Team Providers Care Emt Intermediate Name Role Phone Shirley Yu MD Primary Care Provider [phone] Reason for Visit * Reason Comments Claudication Encounter Details Date Type Department Care Team (Late st Contact Info) Description 11/19/2014 11:00 AM EDT Follow-[place] [address] Jacoby Polanco APRN [facility] [address] PAD (peripheral artery disease) Discharge Disposition: Home [...] Sign Reading Time Taken Comments Blood Pressure 150/63 11/19/2014 11:22 AM EDT Pulse 64 11/19/2014 11:22 AM EDT Temperature - - Respiratory Rate 20 11/19/2014 11:22 AM EDT Oxygen Saturation - - Inhaled Oxygen Concentration - - Weight 105.2 kg (232 lb) 11/19/2014 11:22 AM EDT Height 170.2 cm (5' 7) 11/19/2014 11:22 AM EDT Body Mass Index 36.34 11/19/2014 11:22 AM EDT documented in this encounter Patient Instructions * Patient Instructions* Jacoby Polanco APRN - 11/19/2014 1:39 PM EDT I will call you with f/u recommendations documented in this encounter Progress Notes * Jacoby Polanco APRN - 11/19/2014 11:18 AM EDT Jennifer Bob is a 54-year-old diabetic [...] disadvantaged, and therefore placedher on Coumadin. This has recently been changed to Pradaxa. She developed a mid graft stenosis thathas been followed, with a peak systolic velocity approximately 330 cm/s which is not significantly changed over the past 2 years. 09/11/12 LEFT EIA stent placement (8x60mm Everflex dilated to 7mm) RIGHT LATIN TEACHER angioplasty (Milana 5x40mm to 6 elias) Stationed RIGHT LATIN TEACHER to popliteal vein bypass angiogram Proximal RIGHT bypass angioplasty She is seen today for followup. Denies changes in walking distance. Mild claudication B L>R. Denies rest pain,tissue loss, SOB, chest pain, TIA's PE General: NAD, appears well Neuro: Alert and oriented, motor sensory grossly intact Lungs: CTA Heart: RRR Abd: Soft, NT, ND, no palpable pulsatile masses large Extremity - [place], warm, no ulceration, brisk capillary refill, no edema Vascular: R L Carotid 2/2 bruit (n) 2/2 bruit (n) Radial 2/2 2/2 Femoral 2/2 2/2 Popliteal -/2 -/2 DP 1/2 -/2 PT -/2 -/2 SHEFALI's Right Pressure (mm Hg) SHEFALI Waveform TBI Brachial Artery 155 Dorsalis Pedis (Ankle) Artery 90 0.58 [place]-Biphasic Posterior Tibial (Ankle) Artery 100 0.65 [place]-Biphasic Great Toe 67 0.43 Left Pressure (mm Hg) SHEFALI Waveform TBI Brachial Artery 148 Dorsalis Pedis (Ankle) Artery 71 0.46 [place]-Biphasic Posterior Tibial (Ankle) Artery 74 0.48 [place]-Biphasic Great Toe 42 0.27 Interpretation: RIGHT: Moderate lower extremity arterial occlusive disease. No significant change compared to previous exam performed on 10/10/2012. LEFT: Moderately severe lower extremity arterial occlusive disease. No significant change compared to previous exam performed on 10/10/2012. Duplex Right PSV (cm/s) EDV Location Inflow Artery 283 0 Common Femoral Artery, Right Inflow Anastomosis 394 31 Common Femoral Artery, Right Proximal Graft 357 28 High Thigh (Graft) 102 9 Mid Graft 60 8 Mid Thigh (Graft) 48 7 Low Thigh (Graft) 61 9 Distal Graft 61 8 Outflow Anastomosis 59 8 Popliteal Artery, Above Knee Right Outflow Artery (Graft) 78 8 Popliteal Artery, Above Knee Right Interpretation: Patent common femoral to popliteal bypass graft. There are elevated velocities at the proximal anastomosis with a peak systolic velocity of 415 cm/s which is consistent with a >50% stenosis. There are elevated velocities at the proximal graft with a peak systolic velocity of 357 cm/s and a 2.8x step-up which is consistent with a >50% stenosis. These are new findings compared to the previous exam performed on 10/10/2012. The remainder of the graft is widely patent with no evidence of stenosis. Assessment/Plan: 54 yo female IDDM, CRF s/p B CEA's, left iliac stenting in 2005, and right common femoral to above-knee popliteal vein graft in 2008. 09/11/12 LEFT EIA stent placement (8x60mm Everflexdilated to 7mm) RIGHT LATIN TEACHER angioplasty (Milana 5x40mm to 6 elias) Stationed RIGHT LATIN TEACHER to popliteal vein bypass angiogram Proximal RIGHT bypass angioplasty SHEFALI's stable. Duplex Patent common femoral to popliteal bypass graft. There are elevated velocities at the proximal anastomosis with a peak systolic velocity of 415 cm/s which is consistent with a >50% stenosis. There are elevated velocities at the proximal graft with a peak systolic velocity of 357 cm/s and a 2.8x step-up which is consistent with a >50% stenosis. These are new findings compared to the previous exam performed on 10/10/2012. Will review visit and studies with staff for f/u recommendations. Addendum: Dr Avendano recommend R LE angio with CO2 and bicarb gtt. Scheduled for 12/01/14. documented in this encounter Miscellaneous Notes * Addendum Note - Jacoby Polanco APRN - 11/25/2014 1:01 PM EDTAddended by: JACOBY POLANCO on: 11/25/2014 01:01 PM Modules accepted: Orders, Level of Service * Addendum Note - Jacoby Polanco APRN - 11/19/2014 1:59 PM EDTAddended by: JACOBY POLANCO on: 11/19/2014 01:59 PM Modules accepted: Level of Service documented in this encounter Plan of Treatment Upcoming Encounters Date Type Department Care Team (Late st Contact Info) Description 12/19/2023 1:00 PM EDT Tech [place] [address] Marguerite Macias 12/19/2023 3:00 PM EDT Office [place] [address] Gardenia Golden, LADARIUS [facility] [place] [address] 01/29/2024 1:[address] [place] [address] César Escobar MD [facility] [address] 01/29/2024 2:30 PM EDT Office [place] [address] César Escobar MD [facility] [place] [address] documented as of this encounter Results * VS Angiogram/intervention (vascular) (12/05/2014 10:52 AM EDT) Anatomical Region Laterality Modality X-Ray Angiograph y 12/05/2014 10:5 2 AM EDT Narrative 12/29/2014 3:17 PM EDT Vascular Surgery Interventional Procedure Note: Pre-Operative Diagnosis: 1. RLE PAD Post-Operative Diagnosis: 1. same Procedure: 1. Left femoral ??arterial access with ultrasound guidance 2. second order selective catheterization of right external iliac artery 4. RLE angiogram Surgeons: Neli Lin Intra-procedural Medications: Versed dose: 4 mg Fentanyl dose: 200 mcg Local anesthetic: 10 cc 1% lidocaine Antibiotics: 900 mg clindamycin Fluoro Time: 4.4 min Contrast: 0 mL, CO2 only Sheath Size: ??5 Fr Indications: Ms. Jennifer Bob is a 54yo female with PMHx significant for IDDM, stage 3 CKD, with severe vascular disease including PAD and s/p bilateral CEAs. She presents to angio today for evaluation of the RLE LATIN TEACHER to AK pop bypass graft. Duplex showed elevated velocity at the proximal anastomosis consistent with a >50% stenosis. We will plan RLE diagnostic angio with left groin access. We will likely balloon the proximal anastomosis if it appears amenable to endovascular repair. Due to stage 3 CKD, we will plan CO2 angio and bicarb gtt. Findings: - RLE angiogram demonstrated patent common femoral artery and profunda without evidence of significant disease. Patent bypass without significant stenosis and no flow limitation at the proximal anastomosis. Distal anastomosis with minimal stensois and no flow limitation. The SFA is occluded. The popliteal fills distal to the bypass anastomosis and appears to be without significant disease. The AT takeoff and TP trunk appear to be without significant disease at their respective origins. Technical Procedure: The patient was correctly identified in the pre-procedure holding area. After a discussion of the risks and benefits, procedural consent was obtained. The patient was brought to the angio suite and placed supine upon the angio table. The patient was prepped and draped in the usual sterile fashion. A time-out was performed by the attending surgeon. Split doses of fentanyl and versed were administered for conscious sedation by the Interventional Radiology nurse during continuous monitoring of pulse, blood pressure and oxygen saturation. After injection of local anesthetic, percutaneous access was obtained via the Left femoral ??artery under ultrasound guidance using a micro puncture technique. A cope wire was inserted and upsized to a 5F sheath over a J-wire. A 5F omni-flush catheter was advanced into the infrarenal aorta over the wire. The right external iliac artery was selectively catheterized. The J-wire was removed and CO2 angiography was performed in a staged manner with the above findings. The J wire was replaced and catheter and wire were removed together. The sheath was removed and manual pressure was held over the puncture site for 20 minutes. Hemostasis was satisfactory. The puncture site was dressed with a dry gauze and tegaderm. Dr. Cardenas the attending surgeon was scrubbed and present for the entire procedure. Plan: - Treatment deferred as no significant stenosis was seen on angio and there was no flow limitation - Will follow up in clinic in 6 months with repeat duplex - Will continue current home medication regimen Carter Lin MD [id number] 12/05/2014 5:31 PM Attestation signed by Anne-Marie Cardenas MD at 12/08/2014 9:29 AM I was the attending physician supervising the resident in the above care and I was present with the resident for the entire procedure. ?? Procedure Note Anne-Marie Cardenas MD - 12/29/2014 Vascular Surgery Interventional Procedure Note: Pre-Operative Diagnosis: 1. RLE PAD Post-Operative Diagnosis: 1. same Procedure: 1. Left femoral arterial access with ultrasound guidance 2. second order selective catheterization of right external iliac artery 4. RLE angiogram Surgeons: Neli Lin Intra-procedural Medications: Versed dose: 4 mg Fentanyl dose: 200 mcg Local anesthetic: 10 cc 1% lidocaine Antibiotics: 900 mg clindamycin Fluoro Time: 4.4 min Contrast: 0 mL, CO2 only Sheath Size: 5 Fr Indications: Ms. Jennifer Bob is a 54yo female with PMHx significant for IDDM, stage 3CKD, with severe vascular disease including PAD and s/p bilateral CEAs. Shepresents to angio today for evaluation of the RLE LATIN TEACHER to AK pop bypass graft.Duplex showed elevated velocity at the proximal anastomosis consistent with a>50% stenosis. We will plan RLE diagnostic angio with left groin access. Wewill likely balloon the proximal anastomosis if it appears amenable toendovascular repair. Due to stage 3 CKD, we will plan CO2 angio and bicarb gtt. Findings: - RLE angiogram demonstrated patent common femoral artery and profundawithout evidence of significant disease. Patent bypass without significantstenosis and no flow limitation at the proximal anastomosis. Distal anastomosis withminimal stensois and no flow limitation. The SFA is occluded. The popliteal fillsdistal to the bypass anastomosis and appears to be without significant disease.The AT takeoff and TP trunk appear to be without significant disease at their respective origins. Technical Procedure: The patient was correctly identified in the pre-procedure holding area.After a discussion of the risks and benefits, procedural consent was obtained.The patient was brought to the angio suite and placed supine upon the angiotable. The patient was prepped and draped in the usual sterile fashion. Atime-out was performed by the attending surgeon. Split doses of fentanyl and versedwere administered for conscious sedation by the Interventional Radiology nurseduring continuous monitoring of pulse, blood pressure and oxygen saturation.After injection of local anesthetic, percutaneous access was obtained via theLeft femoral artery under ultrasound guidance using a micro puncturetechnique. A cope wire was inserted and upsized to a 5F sheath over a J-wire. A 5Fomni-flush catheter was advanced into the infrarenal aorta over the wire. The right external iliac artery was selectively catheterized. The J-wire was removedand CO2 angiography was performed in a staged manner with the above findings.The J wire was replaced and catheter and wire were removed together. The sheath was removed and manual pressure was held over the puncture sitefor 20 minutes. Hemostasis was satisfactory. The puncture site was dressedwith a dry gauze and tegaderm. Dr. Cardenas the attending surgeon was scrubbed and present for theentire procedure. Plan: - Treatment deferred as no significant stenosis was seen on angio andthere was no flow limitation - Will follow up in clinic in 6 months with repeat duplex - Will continue current home medication regimen Carter Lin MD [id number] 12/05/2014 5:31 PM Attestation signed by Anne-Marie Cardenas MD at 12/08/2014 9:29 AM I was the attending physician supervising the resident in the above careand I was present with the resident for the entire procedure. Mario Avendano MD IMG IR ORDERABLES documented in this encounter Visit Diagnoses Diagnosis PAD (peripheral artery disease) Peripheral vascular disease, unspecified PAD (peripheral artery disease) Peripheral vascular disease, unspecified documented in this encounter Care Teams Emt Intermediate Relationship Specialty Start Date End Date Shirley Yu MD [address] [place] [address] PCP - General 11/19/14 documented as of this encounter
--- OUTSIDE RECORDS SUMMARY | 2023-12-13 18:31 | XMS_ITS | Encounter Summary ---
Author Organization [facility] [place] [address] Care Team Providers Care Technical Account Executive Name Role Phone Shirley Yu MD Primary Care Provider [phone] Reason for Visit * Reason Comments PDR 8 mo ck. HORTENCIA BELTRAN Encounter Details Date Type Department Care Team (Late st Contact Info) Description 12/17/2013 9:15 AM EDT Follow-[place] [address] Timothy Vega MD [facility] [place] [address] PDR (proliferative diabetic retinopathy), type 1, without macular edema; Carotid stenosis, bilateral Discharge Disposition: Home Social History Tobacco Use [...] Progress Notes * Timothy Vega MD - 12/16/2013 11:31 PM EDT Dear Noah; I had the pleasure seeing Jennifer on December 17, 2013. In summary, her panretinal laser looks good in each eye. 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 Furthermore, she has no signs of macular edema. There are a few microaneurysms but these are not leaking. Also, there appear to be very small drusen in each eye but this is not equivalent to age-related macular degeneration. I've asked Jennifer to return to see me in about 6-8 months. She may very well need additional panretinal laser for coagulation given her peripheral vascular disease and carotid stenosis. The importance of blood sugar control and follow- up was reviewed. Finally, I've asked Jennifer to be sure to see you for continuity of care. She is very pleased with her cataract surgery in each eye. Timothy Meza MD Physician 01/20/2013 7:51 PM Signed Patient stable status post panretinal laser for coagulation to each eye. No signs of hemorrhage or active neovascularization or traction. Importantly, no evidence of macular edema. I've asked the patient to return in 6 months or immediately for any changes. The importance of followup and blood sugar control reviewed. I recommended the patient see Dr. Figueroa as scheduled or sometime within the next several monthsfor continuity of care Expedite brief summary to Dr. Figueroa documented in this encounter Plan of Treatment Upcoming Encounters Date Type Department Care Team (Late st Contact Info) Description 12/19/2023 1:00 PM EDT Tech [place] [address] Marguerite Macias 12/19/2023 3:00 PM EDT Office Visit [place] [address] Gardenia Golden, LADARIUS [facility] [place] [address] 01/29/2024 1:[address] [place] [address] César Escobar MD [facility] [place] [address] 01/29/2024 2:30 PM EDT Office Visit [place] [address] César Escobar MD [facility] [place] [address] documented as of this encounter Visit Diagnoses Diagnosis PDR (proliferative diabetic retinopathy), type 1, without macular edema Carotid stenosis, bilateral Occlusion and stenosis of multiple and bilateral precerebral arteries without mention of cerebral infarction documented in this encounter Care Teams Technical Account Executive Relationship Specialty Start Date End Date Shirley Yu MD [address] [place] [address] PCP - General 03/02/10 10/19/14 documented as of this encounter
--- OUTSIDE RECORDS SUMMARY | 2023-12-13 18:31 | XMS_ITS | Encounter Summary ---
Author Organization [facility] [place] [address] Care Team Providers Care Vegetable Harvest Machine Operator Name Role Phone Shirley Yu MD Primary Care Provider [phone] Reason for Visit * Reason Comments PDR 8-mon f/u for PDR CB C [email or web address].DSonny Encounter Details Date Type Department Care Team (Late st Contact Info) Description 08/12/2014 8:45 AM EDT [place] [address] Timothy Vega MD [facility] DR OPHTHALM[place]Y [place] [address] Proliferative diabetic retinopathy without macular edema associated with type 1 diabetes mellitus Discharge Disposition: Home Social History Tobacco Use [...] Progress Notes * Timothy Vega MD - 08/11/2014 9:23 AM EDT Patient is stable status post panretinal laser photocoagulation each eye. Small tufted neovascularization on the disc left eye but no progression or growths. No evidence of macular edema or other related change Return immediately if visual field loss floaters or decrease in vision. Excellent pattern of laser treated but may consider in the future if necessary. No signs of progressive peripheral ischemia or other changes. Please note also macular drusen but no progression and no signs of exudation. Follow-up with Dr. Szymanski as scheduled Timothy Vega MD at 12/16/2013 11:31 PM Author Type: Physician Status: Signed Tractor Driver: Timothy Vega MD (Physician) Expand All Collapse All Dear Noah; I had the pleasure seeing [...] her cataract surgery in each eye. Timothy documented in this encounter Plan of Treatment Upcoming Encounters Date Type Department Care Team (Late st Contact Info) Description 12/19/2023 1:00 PM EDT Tech [place] [address] Marguerite Macias 12/19/2023 3:00 PM EDT Office [place] [address] Gardenia Golden APRN [facility] [place] [address] 01/29/2024 1:[address] [place] [address] César Escobar MD [facility] [place] [address] 01/29/2024 2:30 PM EDT Office [place] [address] César Escobar MD [facility] [place] [address] documented as of this encounter Visit Diagnoses Diagnosis Proliferative diabetic retinopathy without macular edema associated with type 1 diabetes mellitus documented in this encounter Care Teams Vegetable Harvest Machine Operator Relationship Specialty Start Date End Date Shirley Yu MD [address] [place] [address] PCP - General 03/02/10 10/19/14 documented as of this encounter
--- OUTSIDE RECORDS SUMMARY | 2023-12-13 18:31 | XMS_ITS | Encounter Summary ---
[place] [address] Care Team Providers Care Virtual Classroom Manager Name Role Phone Zofia Yu MD Primary Care Provider Reason for Referral * Consultation (Routine) - Closed Specialty Diagnoses / Procedures Referred By Dominik mcleod Referred To Contact Radiology Diagnoses CKD (chronic kidney disease), stage IV Procedures US Retroperitoneal Complete Michelle Kelly MD [facility] [place] [address] [place] [address] Referral ID Status Reason Start Date Expiration Date V isits Requested Visits Authorized [id number] Closed Specialty Service Requested 06/15/2015 06/14/2016 1 1 Encounter Details Date Type Department Care Team (Late st Contact Info) Description 01/14/2015 1:30 PM EDT Office Visit Nephrology [place] [address] Michelle Kelly MD [facility] [place] [address] Nathaly Slater MD [facility] [place] [address] CKD (chronic kidney disease), stage IV Social History Tobacco Use Types Packs/Day Years [...] Sign Reading Time Taken Comments Blood Pressure 120/57 01/13/2015 2:59 PM EDT Pulse 70 01/13/2015 2:59 PM EDT Temperature - - Respiratory Rate 20 01/13/2015 2:59 PM EDT Oxygen Saturation 96% 01/13/2015 2:59 PM EDT Inhaled Oxygen Concentration - - Weight 104.3 kg (230 lb) 01/13/2015 2:59 PM EDT Height 170.2 cm (5' 7) 01/13/2015 2:59 PM EDT Body Mass Index 36.02 01/13/2015 2:59 PM EDT documented in this encounter Progress Notes * Nathaly Slater MD - 01/19/2015 10:31 AM EDT I have seen the patient and reviewed the fellow's history, and I agree with the details as written.The assessment and plan were formulated in discussion with me, and I agree with them as documented. * Michelle Kelly - 01/14/2015 2:59 PM EDT [facility] Nephrology/Hypertension Follow Up Jennifer Escotones [id number] 1960 ID: [id number] y.o. female for CKD PAST MEDICAL HX: Past Medical History Diagnosis Date ??? Allergy Sulfa, Penicillin ??? Cataract ??? Thyroid disease Hyperthyroidism ??? Cardiac disease PAD ??? Hypertension ??? Skin disease Hyperkeratosis palmaris et plantaris ??? Diabetes mellitus Type 1 ??? DM eyes ??? Hyperlipidemia Subjective: Ms Bob comes back for follow up after 3 months,. She has been doing well and stable with her BP control. We decreased her amlodipine to 5 mg which helped her a lot with the leg swelling. She has been working on her weight loss otherwise. She has been on an insulin pump for a long time and DM is well controlled. She is on pradaxa due to her hx of fem pop by pass surgery and follows up with vascu lar surgery regularly. Has no neuropathic symptoms and checks with her eye doctor regularly. ROS: -no fever, chills, night sweats -no headache, blurring of vision, diplopia -no dysphagia, hearing problems -no chest pain, palpitation, no HILL, orthopnea -no cough or SOB -no abdominal pain, nausea, vomiting or diarrhea -no rash -no neuropathy -no LE swelling Medications: Prior to Admission medications Medication Sig Start Date End Date Taking? Authorizing Provider amLODIPine (NORVASC) 5 mg Tablet Take 1 [...] mg by mouth daily. Yes PROVIDER, HISTORICAL simvastatin (ZOCOR) 40 mg tablet Take 40 mg by mouth nightly. Yes PROVIDER, HISTORICAL dabigatran (PRADAXA) 150 mg capsule Take 150 mg by mouth 2 times daily. Yes PROVIDER, HISTORICAL insulin lispro (HUMALOG) 100 unit/mL injection Inject 55-60 Units subcutaneously continuous. Via insulin pump Yes PROVIDER, HISTORICAL Allergies / ADRs: Allergies Allergen Reactions ??? Sulfa (Sulfonamide Antibiotics) Other (See Comments) Renal failure, bleeding ??? Penicillins Unknown PHYSICAL EXAM: Filed Vitals: 01/13/15 1459 BP: 120/57 Pulse: 70 Resp: 20 Gen - AAO x 3 in NAD [...] Recent Results (from the past 24 hour(s)) Basic Metabolic Panel (non-fasting) Result Value Ref Range Glucose Lvl 216 (H) 65 - 199 mg/dL BUN 26 (H) 8 - 18 mg/dL Creatinine 1.61 (H) 0.70 - 1.20 mg/dL Sodium 139 135 - 145 mmol/L Potassium 5.1 (H) 3.5 - 5.0 mmol/L Chloride 99 98 - 107 mmol/L CO2 25 22 - 31 mmol/L Anion Gap 15 5 - 15 mmol/L Calcium 9.3 8.5 - 10.5 mg/dL Estimated GFR 33 (L) >=60 Phosphorus Result Value Ref Range Phosphorus 3.9 2.5 - 4.5 mg/dL Hemogram Result Value Ref Range WBC 8.2 4.0 - 10.0 x10(3)/mcL RBC 4.23 3.93 - 5.22 x10(6)/mcL Hemoglobin 12.9 11.2 - 15.7 gm/dL Hematocrit 39.6 34.0 - 45.0 % MCV 93.6 79.0 - 94.0 fL MCH 30.5 26.6 - 32.2 pg MCHC 32.6 32.0 - 36.5 gm/dL Platelets 246 145 - 370 x10(3)/mcL RDWSD 47.7 (H) 35.0 - 46.0 fL RDWCV 13.9 10.9 - 14.4 % MPV 10.6 9.0 - 12.0 fL Differential, Automated Result Value Ref Range Neutrophils % 64.4 % Neutr Abs (ANC) 5.25 1.50 - 6.30 x10(3)/mcL Lymphocytes % 27.3 % Lymphocytes Abs 2.2 1.0 - 3.6 x10(3)/mcL Monocytes % 4.5 % Monocyte Abs 0.4 0.2 - 1.0 x10(3)/mcL Eosinophils % 3.5 % Eosinophils Abs 0.3 0.0 - 0.5 x10(3)/mcL Basophils % 0.2 % Basophils Abs 0.0 0.0 - 0.2 x10(3)/mcL Immature Gran % 0.10 % Leatha Gran Abs 0.01 0.00 - 0.05 x10(3)/mcL Microalbumin, urine, random Result Value Ref Range U Creatinine 39 mg/dL U Ran Malb Conc 33.6 mg/L U Ran Malb Calc 86 mcg/mg Cr Impression/ Plan: CKD stage G3b, A1, related to diabetes mellitus type 1, retinopathy and significant peripheral vascular disease , hx of fem pop bypass surgery but no neuropathy- stable over all. No significant JENNA episodes, no nsaid use. HTN - well controlled Mild hyperkalemia- related to losartan MBD - stable Phos, PTH levels in last 1 year Evaluated for pancreas transplant on patient request, suggested f/u for simultaneous panc kidney transplant when Gfr 10-15 Significant hx of peripheral vascular disease, could/could not have TANO but will not sanna the dx at this point considering it wont change our management much - BP well controlled Plan: Continue with control of DM, HTN, life style modifications as already doing Should get pcp follow ups every 3-4 months Standing orders given for bmp, cbc q 3 months for next 1 year Follow [facility] in 6 months Follow BP log, watch for hypotensive / hypertensive episodes Counseled about potassium content in foods Follow up: 6 months, labs in 3 months US renal in 6 months on same day as appointment F/u sooner prn Seen and Discussed w/ Dr. Garrett Kelly MD Nephrology Fellow Pager# [phone] ZOFIA YU MD (General) [address] [place], [place] [id number] documented in this encounter Plan of Treatment Upcoming Encounters Date Type Department Care Team (Late st Contact Info) Description 12/19/2023 1:00 PM EDT Tech [place] [address] Marguerite Macias 12/19/2023 3:00 PM EDT Office Visit Vascular [place] [address] Gardenia Golden, LADARIUS [facility] [place] [address] 01/29/2024 1:[address] [place] [address] César Escobar MD [facility] [place] [address] 01/29/2024 2:30 PM EDT Office Visit [place]acic [place] [address] César Escobar MD [facility] [place] [address] documented as of this encounter Results * US Retroperitoneal Complete [...] 04:06 pm) Patient Info ID #: ? [id number] ?: ??[birth year] (54 yrs) Name: ? JENNIFER BOB ?Visit Date: 06/24/2015 03:27 pm Performed By Performed By: ? Celestina Irving RDMS Attending: ?Morgan BELTRAN, César Kramer Referred By: ?NATHALY SLATER MD Service(s) Provided ??URETRO - Retroperitoneal Complete - [id number] ? [id number] Indications ??CKD Right Kidney Size (cm) ?L: [...] 06/24/2015 04:06 pm) Patient Info ID #: [id number] : [birth year] (54 yrs) Name: JENNIFER BOB Visit Date: 06/24/2015 03:27 pm Performed By Performed By: Celestina Irving RDMS Attending: César Mora MD Referred By: NATHALY SLATER MD Service(s) Provided URETRO - Retroperitoneal Complete - [id number] Indications CKD Right Kidney Size (cm) L: [...] IV Chronic kidney disease, Stage IV (severe) CKD (chronic kidney disease), stage IV Chronic kidney disease, Stage IV (severe) documented in this encounter Care Teams Virtual Classroom Manager Relationship Specialty Start Date End Date Zofia Yu MD [address] [place] [address] PCP - General 11/19/14 documented as of this encounter
--- OUTSIDE RECORDS SUMMARY | 2023-12-13 18:31 | XMS_ITS | Encounter Summary ---
Author Organization [facility] Address [facility] [place] [address] Care Team Providers Care Wood Room Supervisor Name Role Phone Shirley Yu MD Primary Care Provider [phone] Encounter Details Date Type Department Care Team (Latest Contact Info) Description 12/05/2014 8:26 AM EDT - 12/05/2014 11:59 PM EDT Hospital [place] [id number] CLINIC, Mario Simms MD [facility] [address] PAD (peripheral artery disease) Discharge Disposition: Home [...] Sign Reading Time Taken Comments Blood Pressure 153/50 12/05/2014 2:30 PM EDT Pulse 44 12/05/2014 10:55 AM EDT Temperature 36.3 ??C (97.4 ??F) 12/05/2014 10:55 AM E DT Respiratory Rate 18 12/05/2014 2:30 PM EDT Oxygen Saturation 93% 12/05/2014 2:30 PM EDT Inhaled Oxygen Concentration - - Weight - - Height - - Body Mass Index - - documented in this encounter Discharge Instructions * Discharge Instructions* Fatoumata Diez RN - 12/05/2014 1:24 PM EDT [facility] Interventional Radiology Post Angiography Instructions Procedure: Right lower extremity angiogram Puncture Site: Left groin Date: 12/05/2014 Physician: Drs. Cardenas, Wen 1. At home we advise you to [...] than 10-15 pounds for the next 48 hours. 4. If you develop bulging under the [...] or hoildays, call and ask for the vice president precision market insights manager utilization. OR Vascular Department at until 4:45pm. After 4:45pm call and ask for the Vascular resident manager utilization. 10. If you are a diabetic and [...] drainage occurs, please contact your M. D. 04/22/11 documented in this encounter Medications at Time of Discharge Medication Sig Dispensed Refills Start Date End Date citalopram (CeleXA) 20 mg Tablet Take by mouth. 08/13/2012 losartan (COZAAR) 100 mg Tablet Take 50 mg by mouth daily. 08/11/2014 aspirin 81 mg EC tablet Take 81 mg by mouth daily. insulin lispro (HUMALOG) 100 unit/mL injection Inject 55-60 Units subcutaneously continuous. Via insulin pump amLODIPine (NORVASC) 5 mg Tablet Take 1 [...] daily. 08/24/2015 documented as of this encounter Progress Notes * Nelson Whitney RN - 12/01/2014 5:19 PM EDT ANGIO NURSING DATABASE Name: JENNIFER BOB Date of : 1960 AGE 54 y.o. Address: [address] [place] [phone] (home) Mobile: No relevant phone numbers on file. Referring Provider: Ofelia Polanco Order Questions Question Answer Comment Where will study be performed? [facility]- Radiology Laterality Right Reason for exam and clinical history: right LE bypass graft stenosis GFR 33 CO2 and bicarb. Exam/Procedure requested: R LE angio Is the patient on anticoagulant / anitplatelet therapy ? Clopidogrel Allergies Allergen Reactions ??? Sulfa (Sulfonamide Antibiotics) Other (See Comments) Renal failure, bleeding ??? Penicillins Unknown Pertinent PMH: Patient Active Problem List Diagnosis Code ??? Hyperkeratosis palmaris et plantaris 757.39 ??? Intermittent claudication 443.9 ??? PAD (peripheral artery disease) 443.9 ??? 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 Carotid stenosis 433.10 ??? PDR (proliferative diabetic retinopathy) 250.50, 362.02 Pertinent PSH: Past Surgical History Procedure Laterality Date ??? Vascular surgery 2001 Left CEA ??? Vascular surgery 2006 Left com iliac stent, R SFA stents ??? Vascular surgery 1009 Right GUIDEMAN-AK pop vein graft ??? Retinal laser surgery 01/20/2012 OS ??? Retinal laser surgery 03/02/2012 OS ??? Retinal laser surgery 08/10/2012 OS ??? Retinal laser surgery 09/28/2012 OD ??? Retinal laser surgery 10/26/2012 OD ??? Retinal laser surgery 02/15/2013 PRP OD - Dr Vega ??? Cataract extraction, extracapsular, w/ lens insertion 06/2013 OU - Dr Szymanski Date/Procedure Comments: 12-14-06 LLE A-Gram with stents placed Heparin 8000units, Versed 5.5mg., Fentanyl 225mcg. 12-16-05 RLE A-gram with stents placed Heparin 8000 units, Versed 5.5mg. Fentanyl 275, NTG 11-17-05 Bilateral Aortogram Versed 4mg., Fentanyl 175mcg. 09/11/12 Tm-zikvmm-RTR w/stent&BLANKMAKER to LtEIA OPS [id number]/ anurag well 12/05/14 Diagnostic RLE A-Gram with CO2 Clindamycin 900 mg IV, fentanyl 200 mcg IV, versed 4mg IV Laboratory Results: No results found for: INR No components found for: PT/PTT Lab Results Component Value Date CREATININE 1.60* 10/14/2014 Lab Results Component Value Date K 4.9 06/13/2014 Lab Results Component Value Date PLATELET 261 06/13/2014 Medications: Prior to Admission medications Medication Sig Start Date End Date Taking? Authorizing Provider amLODIPine (NORVASC) 5 mg Tablet Take 1 tablet by mouth daily. 10/15/14 Michelle Kelly MD atenolol (TENORMIN) 25 mg Tablet Take 25 mg by mouth daily. 08/20/14 PROVIDER, HISTORICAL levothyroxine (SYNTHROID) 125 mcg Tablet Take 125 mcg by mouth daily. 09/18/14 PROVIDER, HISTORICAL losartan (COZAAR) 100 mg Tablet Take 100 mg by mouth daily. 08/11/14 PROVIDER, HISTORICAL HUMULIN R Solution Inject 15 Units subcutaneously 3 times daily as needed. 09/30/14 PROVIDER, HISTORICAL cilostazol (PLETAL) 100 mg tablet Take 1 tablet by mouth 2 times daily. 10/15/12 Mario Avendano MD CYANOCOBALAMIN, VITAMIN B-12, (VITAMIN B-12 ORAL) Take by mouth daily. PROVIDER, HISTORICAL Magnesium 250 mg Tab Take by mouth daily. PROVIDER, HISTORICAL aspirin 81 mg EC tablet Take 81 mg by mouth daily. PROVIDER, HISTORICAL citalopram (CELEXA) 20 mg tablet Take 20 mg by mouth daily. PROVIDER, HISTORICAL simvastatin (ZOCOR) 40 mg tablet Take 40 mg by mouth nightly. PROVIDER, HISTORICAL dabigatran (PRADAXA) 150 mg capsule Take 150 mg by mouth 2 times daily. PROVIDER, HISTORICAL insulin lispro (HUMALOG) 100 unit/mL injection Inject 55-60 Units subcutaneously continuous. Via insulin pump PROVIDER, HISTORICAL ++++ FOR OUTPATIENT SCAN'S: I have informed this patient that they require a bobtail driver to be present and in the building to drive them home after this procedure. In the absence of a bobtail driver, IR will not be able to perform this procedure and will need to reschedule. Pt verbalized understanding of these i nstructions during the pre-procedure education via phone. (initials) documented in this encounter H&P Notes * Yue Carver - 12/04/2014 2:01 PM EDT Vascular Surgery History and Physical HPI: Ms. Jennifer Bob is a 54yo female with PMHx significant for IDDM, stage 3 CKD, with severe vascular disease including PAD and s/p bilateral CEAs. She was seen in clinic for follow up on 11/19/14 at which time new stenoses were seen on duplex at the proximal bypass anastamosis was observed. She presents to angio today for RLE angiogram with possible intervention to improve inflow/anastomotic stenoses. She denies CP, SOB, cough, colds, or fever. SHe does, however, endorse bilateral LE claudication. Denies rest pain or tissue loss. Vascular History: 2000 L CEA 2005 L iliac stent 2008 R GUIDEMAN to AK pop bypass (considered disadvantaged due to small caliber of vein, on pradaxa) 09/11/12 L EIA stent, R GUIDEMAN angioplasty, right bypass proximal angioplasty Past Medical and Surgical History: Hyperthyroid CAD HTN DM type with resultant renal insufficiency and retinopathy Hyperlipidemia PAD s/p above procedures CAD s/p CEA Medications: Current Outpatient Prescriptions on File Prior to Encounter Medication Sig Dispense Refill ??? amLODIPine (NORVASC) 5 mg Tablet Take 1 tablet by mouth daily. 30 tablet 3 ??? atenolol (TENORMIN) 25 mg Tablet Take 25 mg by mouth daily. ??? cilostazol (PLETAL) 100 mg tablet Take 1 tablet by mouth 2 times daily. 180 tablet 3 ??? aspirin 81 mg EC tablet Take 81 mg by mouth daily. ??? citalopram (CELEXA) 20 mg tablet Take 20 mg by mouth daily. ??? levothyroxine (SYNTHROID) 125 mcg Tablet Take 125 mcg by mouth daily. ??? losartan (COZAAR) 100 mg Tablet Take 100 mg by mouth daily. ??? HUMULIN R Solution Inject 15 Units subcutaneously 3 times daily as needed. ??? CYANOCOBALAMIN, VITAMIN B-12, (VITAMIN B-12 ORAL) Take by mouth daily. ??? Magnesium 250 mg Tab Take by mouth daily. ??? simvastatin (ZOCOR) 40 mg tablet Take 40 mg by mouth nightly. ??? dabigatran (PRADAXA) 150 mg capsule Take 150 mg by mouth 2 times daily. ??? insulin lispro (HUMALOG) 100 unit/mL injection Inject 55-60 Units subcutaneously continuous. Via insulin pump Current Facility-Administered Medications on File Prior to Encounter Medication Dose Route Frequency Provider Last Rate Last Dose ??? sodium bicarbonate 150 mEq in dextrose 5% 1000 mL infusion 3 mL/kg/hr Intravenous Continuous Ofelia Polanco, LADARIUS Allergies: Sulfa (sulfonamide antibiotics) and Penicillins Physical Exam: General: alert, cooperative, no acute distress HEENT: normocephalic, atraumatic Neck: trachea midline CVS: regular rate, no murmurs rubs or gallops Pulm: clear to auscultation bilaterally Abd: soft, non tender, non distended Ext: RLE: No edema. Skin warm and pink. No tissue loss. 1+ femoral (limited by body habitus). No palpable DP/PT. LLE: No edema. Skin warm and pink. No tissue loss. 1+ femoral (limited by body habitus). No palpable DP/PT. Neuro: no focal deficits, moving all extremities. Labs: Last Cr on 10-14 was 1.60, today's is pending. Imagin11/18/14 SHEFALI Findings: Right Pressure (mm Hg) SHEFALI Waveform TBI Brachial Artery 155 Dorsalis Pedis (Ankle) Artery 90 0.58 Bowie-Biphasic Posterior Tibial (Ankle) Artery 100 0.65 Bowie-Biphasic Great Toe 67 0.43 Left Pressure (mm Hg) SHEFALI Waveform TBI Brachial Artery 148 Dorsalis Pedis (Ankle) Artery 71 0.46 Bowie-Biphasic Posterior Tibial (Ankle) Artery 74 0.48 Bowie-Biphasic Great Toe 42 0.27 Interpretation: RIGHT: Moderate lower extremity arterial occlusive disease. No significant change compared to previous exam performed on 10/10/2012. LEFT: Moderately severe lower extremity arterial occlusive disease. No significant change compared to previous exam performed on 10/10/2012. 11/19/14 Bypass graft duplex Findings: Right PSV (cm/s) EDV Location Inflow [...] widely patent with no evidence of stenosis. Assessment and Plan: Ms. Jennifer Bob is a 54yo female with PMHx significant for IDDM, stage 3 CKD, with severe vascular disease including PAD and s/p bilateral CEAs. She presents to angio today for evaluation of the RLE GUIDEMAN to AK pop bypass graft. Duplex showed elevated velocity at the proximal anastomosis consistentwith a >50% stenosis. We will plan RLE diagnostic angio with left groin access. We will likely balloon the proximal anastomosis if it appears amenable to endovascular repair. Due to stage 3 CKD, we will plan CO2 angio and bicarb gtt. ASA 3 Malampati 3 Cr today's is pending, bicarb gtt. Will use CO2 primarily. Carter Lin MD [id number] 12/04/2014 2:02 PM documented in this encounter Procedure Notes * Carter Lin MD - 12/05/2014 4:53 PM EDT Vascular Surgery Interventional Procedure Note: [...] angio today for evaluation of the RLE GUIDEMAN to AK pop bypass graft. Duplex showed elevated velocity at the proximal anastomosis consistentwith a >50% stenosis. We will plan RLE [...] obtained via the Left femoral artery under ultrasound guidance using a micro puncture [...] Carter Lin MD [id number] 12/05/2014 5:31 PM Associated attestation - Anne-Marie Cardenas MD - 12/08/2014 9:29 AM EDT I was the attending physician supervising the resident in the above care and I was present with theresident for the entire procedure. documented in this encounter Plan of Treatment Upcoming Encounters Date Type Department Care Team (Late st Contact Info) Description 12/19/2023 1:00 PM EDT Tech [place] [address] Marguerite Macias 12/19/2023 3:00 PM EDT Office [place] [address] Gardenia Golden, LADARIUS [facility] [place] [address] 01/29/2024 1:[address] [place] [address] César Escobar MD [facility] [place] [address] 01/29/2024 2:30 PM EDT Office Visit Thoracic Surgery at [facility] [place] [id number] César Escobar MD [facility] [place] [address] documented as of this encounter Procedures Procedure Name Priority Date/Time Associated Diagnosis Comments VS ARTERIOGRAM LOWER EXTREMITY VASCULAR SURGERY Routine 12/05/2014 10:52 AM EDT PAD (peripheral artery disease) CREATININE Routine 12/05/2014 8:58 AM EDT POCT GLUCOSE Routine 12/05/2014 8:56 AM EDT documented in this encounter Results * VS Angiogram/intervention (vascular) [...] angio today for evaluation of the RLE GUIDEMAN to AK pop bypass graft. Duplex showed [...] angio today for evaluation of the RLE GUIDEMAN to AK pop bypass graft.Duplex showed elevated [...] procedure. Mario Avendano MD IMG IR ORDERABLES * (ABNORMAL) Creatinine (12/05/2014 8:58 AM EDT) Creatinine 1.56(H) 0.70 - 1.20 mg/dL [facility] Comment: Please note that the pediatric reference intervals supplied above were not validated at [facility]. Results from pediatric patients should be interpreted in conjunction to the patient's age, height and muscle mass. Est Glomerular Filtration Rate 34(L) >=60 [facility] Comment: This estimated GFR (eGFR) value was [...] the following links into your internet browser. [email or web address] Blood specimen (specimen) 12/05/2014 8:58 AM EDT 12/05/2014 9:04 AM EDT Narrative Resulting Agency Comment Spec In Lab Mario Avendano MD CHEMISTRY ORDERABLE S Performing Organization Address [facility] Co de Phone Number MARCO SIEGEL * POCT Glucose (12/05/2014 8:56 AM EDT) Glucose, POC 137 65 - 199 mg/dL [facility] Comment: Supplemental ranges: <140 mg/dL before meals <180 mg/dL all other times of the day Blood specimen (specimen) 12/05/2014 8:56 AM EDT 12/05/2014 8:56 AM EDT Mario Avendano MD POINT OF CARE TEST ORDERABLES Performing Organization Address [facility] Phone Number MARCO SIEGEL documented in this encounter Visit Diagnoses Diagnosis PAD (peripheral artery disease) Peripheral vascular disease, unspecified documented in this encounter Administered Medications Inactive Administered Medications - up to 3 most recent administrations Medication Order MAR Action Action Date Dose Rate Site fentaNYL 50mcg/mL injection 25 mcg, Intravenous, EVERY 5 MIN PRN, Starting on Mon12/05/14 at 0732, Until Mon12/05/14 at 1040, Pain, Angio/IR (Intra-Procedure), Routine Given 12/05/2014 10:20 AM EDT 200 mcg midazolam (PF) (VERSED) 1 mg/mL injection 0.5-1 mg 0.5-1 mg, Intravenous, EVERY 5 MIN PRN, Starting on Mon12/05/14 at 0732, Until Mon12/05/14 at 1040, Sleep, Angio/IR (Intra-Procedure), Routine Given 12/05/2014 10:20 AM EDT 4 mg sodium bicarbonate 150 mEq in dextrose 5% 1000 mL infusion 0-300 mL/hr, Intravenous, CONTINUOUS, Starting on Mon12/05/14 at 0800, Until Mon12/05/14 at 1040, Please give 3cc/kg/hr for one hour prior to procedure and 1cc/kg/hr for 4 hours following the procedure, Angio/IR (Day of Procedure) Rate/Dose Change 12/05/2014 9:55 AM EDT 104 mL/hr 104 mL/hr New Bag 12/05/2014 8:55 AM EDT 310 mL/hr 310 mL/hr documented in this encounter Care Teams Wood Room Supervisor Relationship Specialty Start Date End Date Shirley Yu MD [address] [place] [address] PCP - General 11/19/14 documented as of this encounter
--- OUTSIDE RECORDS SUMMARY | 2023-12-13 18:31 | XMS_ITS | Encounter Summary ---
[place] [address] Care Team Providers Care Supervisor In Charge Name Role Phone Geovany Hunt Primary Care Provider [phone] Encounter Details Date Type Department Care Team (Late st Contact Info) Description 10/28/2014 Notes Only [place] [address] Christos Abarca MSW Social History Tobacco Use Types Packs/Day [...] as of this encounter Progress Notes * Christos Abarca MSW - 10/28/2014 1:45 PM EDT SW did not see pt during this encounter. documented in this encounter Plan of Treatment Upcoming Encounters Date Type Department Care Team (Late st Contact Info) Description 12/19/2023 1:00 PM EDT Tech [place] [address] Marguerite Macias 12/19/2023 3:00 PM EDT Office Visit [place] [address] Gardenia Golden APRN [facility] [place] [address] 01/29/2024 1:[address] [place] [address] César Escobar MD [facility] [place] [address] 01/29/2024 2:30 PM EDT Office Visit [place] [phone] César Escobar MD [facility] [place] [address] documented as of this encounter Visit Diagnoses Not on filedocumented in this encounter Care Teams Supervisor In Charge Relationship Specialty Start Date End Date Geovany Hunt PA [address] [place] [address] PCP - General 10/20/14 11/18/14 documented as of this encounter
--- OUTSIDE RECORDS SUMMARY | 2023-12-13 18:31 | XMS_ITS | Encounter Summary ---
Author Organization [facility] [place] [address] Care Team Providers Care Repair Specialist Name Role Phone Shirley Yu MD Primary Care Provider [phone] Reason for Visit * Reason Onset Date Comments Medication Refill 02/19/2015 Encounter Details Date Type Department Care Team (Late st Contact Info) Description 02/19/2015 Refill [place] [address] Lluvia Oropeza APRN [facility] [place] [address] Social History Tobacco Use Types Packs/Day Years [...] Miscellaneous Notes * Telephone Encounter - Cassy Peralta RN - 02/19/2015 8:55 AM EST Jennifer Bob - 02/18/15 >','<< Less Detail',event) href=[email or web address]:;><< Less Detail Carmen Arredondo LD Sent: MonFebruary 18, 2015 5:28 PM To: [facility] Endocrinology Nurse Message Can you write Rx for milan next strips - 4 a day. On minimed pump. documented in this encounter Plan of Treatment Upcoming Encounters Date Type Department Care Team (Late st Contact Info) Description 12/19/2023 1:00 PM EDT Tech Visit Vascular Lab at [place] [phone] Marguerite Macias 12/19/2023 3:00 PM EDT Office Visit [place] [address] Gardenia Golden APRN [facility] [place] [address] 01/29/2024 1:[address] Scan at [place] [phone] César Escobar MD [facility] [place] [address] 01/29/2024 2:30 PM EDT Office Visit [place] [phone] César Escobar MD [facility] [place] [address] documented as of this encounter Visit Diagnoses Not on filedocumented in this encounter Care Teams Repair Specialist Relationship Specialty Start Date End Date Shirley Yu MD [address] [place] [address] PCP - General 11/19/14 documented as of this encounter
--- OUTSIDE RECORDS SUMMARY | 2023-12-13 18:31 | XMS_ITS | Encounter Summary ---
Author Organization [facility] [place] [address] Care Team Providers Care Level Vial Inspector And Tester Name Role Phone Shirley Yu MD Primary Care Provider [phone] Reason for Visit * Reason Onset Date Comments Questions 08/11/2014 Wanted Valium fo r her laser tomorrow. NOT currently scheduled to have laser, only exam Encounter Details Date Type Department Care Team (Late Contact Info) Description 08/11/2014 Telephone [place] [address] Timothy Vega MD [facility] [place] [address] Questions (Wanted Valium for her laser tomorrow. NOT currently scheduled to have laser, only exam) Social History Tobacco Use Types Packs/Day Years [...] PM EDT Tech Visit [place] [address] Marguerite Macias 12/19/2023 3:00 PM EDT Office Visit [place] [phone] Gardenia Golden APRN [facility] [place] [address] 01/29/2024 1:[address] [place] [phone] César Escobar MD [facility] [place] [address] 01/29/2024 2:30 PM EDT Office [place] [phone] César Escobar MD [facility] [place] [address] documented as of this encounter Visit Diagnoses Not on filedocumented in this encounter Care Teams Level Vial Inspector And Tester Relationship Specialty Start Date End Date Shirley Yu MD [address] [place] [address] PCP - General 03/02/10 10/19/14 documented as of this encounter
--- OUTSIDE RECORDS SUMMARY | 2023-12-13 18:31 | XMS_ITS | Encounter Summary ---
Author Organization [facility] [place] [address] Care Team Providers Care Health/Safety Job Titles Name Role Phone Shirley Yu MD Primary Care Provider [phone] Encounter Details Date Type Department Care Team (Late st Contact Info) Description 10/13/2014 Orders [place] [address] Lluvia Oropeza SENIOR CONSTRUCTION PROJECT MANAGER [facility] DR ENDOCRIN[place] [address] Type I (juvenile type) diabetes mellitus with renal manifestations, uncontrolled Social History Tobacco Use Types Packs/Day [...] PM EDT Tech [place] [address] Marguerite Macias 12/19/2023 3:00 PM EDT Office Visit [place] [address] Gardenia Golden APRN [facility] [place] [address] 01/29/2024 1:[address] [place] [address] César Escobar MD [facility] DR [place] [address] 01/29/2024 2:30 PM EDT Office Visit [place] [address] César Escobar MD [facility] [address] [place] [address] documented as of this encounter Results * LDL Cholesterol, Direct (10/14/2014 1:37 PM EDT) LDL Cholesterol, Direct 77 <=99 mg/dL [facility] Comment: The National Cholesterol Education Program (NCEP) has set the following guidelines for LDL Cholesterol: Reference range: ?? Optimal: ?<100 mg/dL ?? Near Optimal/Above Optimal: ?? 100-129 mg/dL ?? Borderline high: ?130-159 mg/dL ?? High: ? 160-189 mg/dL ?? Very high: ?>hd=721 mg/dL SEPIDEH 2001: 285(19):0854-5552 Blood specimen (specimen) 10/14/2014 1:37 PM EDT 10/14/2014 1:43 PM EDT Narrative Resulting Agency Comment Spec In Lab Paulino Oakley MD CHEMISTRY ORDERABLES Performing Organization Address [facility] de Phone Number [facility] SHEPARDI[facility] * HDL/Cholesterol Profile (10/14/2014 1:37 PM EDT) Cholesterol, Total 160 <=199 mg/dL [facility] Comment: Recommendations of the NCEP Adult Treatment Panel for the following risk cutoff thresholds for the [place] population: Desirable: <200 mg/dL Borderline High: 200-239 mg/dL High: > or = 240 mg/dL HDL Cholesterol 78 >=40 mg/dL [facility] Comment: Reference range: ??Low HDL: ?? < 40 mg/dL ??Normal: ?40-60 mg/dL ??Desirable: > 60 mg/dL SEPIDEH 2001; 285(19):6588-6316 Cholesterol/HDL Ratio 2.1 ratio [facility] Comment: A Cholesterol to HDL ratio below 4:1 is desirable. ??Studies suggest that increased CAD risk occurs at ratios above 5 for females and above 6 for men. ? [place] Heart Association ??(http://www.americanheart.org) ? Bianka Int Med, 1994; 121:641 ? AM J Med, 1998; 105(1A):48S Blood specimen (specimen) 10/14/2014 1:37 PM EDT 10/14/2014 1:43 PM EDT Narrative Resulting Agency Comment Spec In Lab Paulino Oakley MD CHEMISTRY ORDERABLES Performing Organization Address [facility] de Phone Number [facility]CO SIEGEL * TSH (10/14/2014 1:37 PM EDT) Thyroid Stimulating Hormone 2.42 0.27 - 4.20 mcIU/mL [facility] Blood specimen (specimen) 10/14/2014 1:37 PM EDT 10/14/2014 1:43 PM EDT Narrative Resulting Agency Comment Spec In Lab Paulino Oakley MD CHEMISTRY ORDERABLES Performing Organization Address [facility] de Phone Number [facility] SHEPARD[facility] * (ABNORMAL) Creatinine (10/14/2014 1:37 PM EDT) Creatinine 1.60(H) 0.70 - 1.20 mg/dL [facility] Comment: Please note that the pediatric reference intervals supplied above were not validated at [facility]. Results from pediatric patients should be interpreted in conjunction to the patient's age, height and muscle mass. Est Glomerular Filtration Rate 33(L) >=60 [facility] Comment: This estimated GFR (eGFR) [...] the following links into your internet browser. [email or web address] [email or web address]/[facility]INIT[facility]kf Blood specimen (specimen) 10/14/2014 1:37 PM EDT 10/14/2014 1:43 PM EDT Narrative Resulting Agency Comment Spec In Lab Paulino Oakley MD CHEMISTRY ORDERABLES [facility] * (ABNORMAL) Hemoglobin A1c (10/14/2014 1:37 PM EDT) Hemoglobin A1c 8.5(H) 4.3 - 5.6 % [facility] Comment: Reference Range: 4.3 - 5.6% 5.7 - 6.4% - Increased Risk of Developing Diabetes Mellitus 6.5% - Consistent with diagnosis of Diabetes Mellitus In the absence of hyperglycemia (i.e. plasma glucose > 200 mg/dL) or classic symptoms of hyperglycemia a repeat measurement of HbA1c should be performed on a separate sample to confirm the diagnosis. Diagnosis and Classification of Diabetes Mellitus, Diabetes Care 2013; 36: Suppl. 1, B40-52 Estimated Average Glucose 197 mg/dL [facility] Comment: eAG equivalents for HbA1c percentages: HbA1c(%) ?eAG(mg/dL) 6.0 ?126 6.5 ?140 7.0 ?154 7.5 ?169 8.0 ?183 8.5 ?197 9.0 ?212 9.5 ?226 10.0 ? 240 Limitations: The eAG calculation has not been validated on women, individuals below 18 years old and above 70 years old, and individuals with hemoglobinopathies. Additional resources are available on the ADA website: http://[employer].Medical Reimbursements of [place]/DHMCadacalc Chandra WELLS, Nikky J, Quinn R, et al. ??Translating the A1C assay into estimated average glucose values. ??Diabetes Care 2008:31(8):2940-4125. Blood specimen (specimen) 10/14/2014 1:37 PM EDT 10/14/2014 1:43 PM EDT Narrative Resulting Agency Comment Spec In Lab Paulino Oakley MD CHEMISTRY ORDERABLES Performing Organization Address City/State/[facility] Co me Phone Number [facility] documented in this encounter Visit Diagnoses Diagnosis Type I (juvenile type) diabetes mellitus with renal manifestations, uncontrolled(250.43) Type I (juvenile type) diabetes mellitus with renal manifestations, uncontrolled documented in this encounter Care Teams Health/Safety Job Titles Relationship Specialty Start Date End Date Shirley Yu MD [address] [place] [address] PCP - General 03/02/10 10/19/14 documented as of this encounter
--- OUTSIDE RECORDS SUMMARY | 2023-12-13 18:31 | XMS_ITS | Encounter Summary ---
[place] [address] Care Team Providers Care Jewel Inspector Name Role Phone Geovany Hunt Primary Care Provider [phone] Encounter Details Date Type Department Care Team (Late st Contact Info) Description 10/29/2014 Orders [place] [address] Josee Peace, RN Claudication Social History Tobacco Use Types Packs/Day [...] PM EDT Tech [place] [address] Marguerite Macias 12/19/2023 3:00 PM EDT Office [place] [address] Gardenia Golden, MANAGER TRAINING AND DEVELOPMENT [facility] [place] [address] 01/29/2024 1:[address] [place] [address] César Escobar MD [facility] [place] [address] 01/29/2024 2:30 PM EDT Office [place] [address] César Escobar MD [facility] [place] [address] documented as of this encounter Results * Unilat Bypass Graft Assess (11/19/2014 10:14 AM EDT) VB Text Report Department: Vascular Surgery Lab Patient: [id number] (JENNIFER WINTERS) CPT Code: 29649 ICD-9: 996.74 Referring Physician: BRIDGET AVENDANO Indication: Patient with PVOD and right common femoral to popliteal bpg, ? patency ICD9 Diagnosis Code: 996.74 Findings: Right ? PSV (cm/s) ??EDV ??Location ? Inflow Artery ?283 ?0 ??Common Femoral Artery, Right ? Inflow Anastomosis ? 394 ?? 31 ??Common Femoral Artery, Right ? Proximal Graft ? 357 ?? 28 ? High Thigh (Graft) ? 102 ?9 ? Mid Graft ? 60 ?8 ? Mid Thigh (Graft) ? 48 ?7 ? Low Thigh (Graft) ? 61 ?9 ? Distal Graft ?61 ?8 ? Outflow Anastomosis ? 59 ?8 ??Popliteal Artery, Above Knee Right ?? Outflow Artery (Graft) ?78 ?8 ??Popliteal Artery, Above Knee Right ?? Interpretation: Patent common femoral to popliteal bypass [...] no evidence of stenosis. Electronically Signed by: SARINA WALTERS on 2014-11-19 12:04:45 PM [facility] VB Text Report End of Report [facility] 11/19/2014 10:1 4 AM EDT Bridget Avendano MD VASCULAR ORDERABLES [facility] * SHEFALI, legs, multiple levels (11/18/2014 10:14 AM EDT) VB Text Report Department: Vascular Surgery Lab Patient: [id number] (JENNIFER WINTERS) CPT Code: 62468 ICD-9: 440.21 Referring Physician: BRIDGET AVENDANO Indication: ??Patient with H/O PVOD, right LINEWORKER-POP BPG, left leg stent, ? change ICD9 Diagnosis Code: 440.21 Diabetes Mellitus: Yes Definitions: ?? SHEFALI = Ankle / Brachial Systolic Pressure Index, TBI = Toe / Brachial Systolic Pressure Index Findings: Right ?Pressure (mm Hg) ?? SHEFALI ??Waveform ?TBI ?? Brachial Artery ?155 ? Dorsalis Pedis (Ankle) Artery ?90 ?0.58 ??[place]-Biphasic ? Posterior Tibial (Ankle) Artery ??100 ? 0.65 ??[place]-Biphasic ? Great Toe ?67 ? 0.43 ?? Left ? Pressure (mm Hg) ?? SHEFALI ??Waveform ?TBI ?? Brachial Artery ?148 ? Dorsalis Pedis (Ankle) Artery ?71 ?0.46 ??[place]-Biphasic ? Posterior Tibial (Ankle) Artery ??74 ?0.48 ??[place]-Biphasic ? Great Toe ?42 ? 0.27 ?? Interpretation: RIGHT: Moderate lower extremity arterial occlusive disease. No significant change compared to previous exam performed on 10/10/2012. LEFT: Moderately severe lower extremity arterial occlusive disease. No significant change compared to previous exam performed on 10/10/2012. Previous ABIs with change from previous value: [...] 0.27(+.12) ??0.63(-.01) 0.65(+.06) 0.34(-.14) 0.42(-.03) 0.44(-.02) 0.22(-.05) Current ? 0.58(-.05) 0.65( .00) 0.43(+.09) 0.46(+.04) 0.48(+.04) 0.27(+.05) Electronically Signed by: SARINA WALTERS on 2014-11-19 12:04:45 PM [facility] VB Text Report End of Report [facility] 11/18/2014 10:1 4 AM EDT Bridget Avendano MD VASCULAR ORDERABLES [facility] documented in this encounter Visit Diagnoses Diagnosis Claudication Peripheral vascular disease, unspecified documented in this encounter Care Teams Jewel Inspector Relationship Specialty Start Date End Date Geovany Hunt PA [address] [place] [address] PCP - General 10/20/14 11/18/14 documented as of this encounter
--- OUTSIDE RECORDS SUMMARY | 2023-12-13 18:31 | XMS_ITS | Encounter Summary ---
Author Organization [facility] [place] [address] Care Team Providers Care Emt I/85 Name Role Phone Geovany Hunt Primary Care Provider [phone] Reason for Visit * Reason Comments Kidney Transplant Evaluation Chronic Kidney Disease Encounter Details Date Type Department Care Team (Late st Contact Info) Description 10/28/2014 2:00 PM EDT Office Visit [place] [address] Rambo Grewal MD [facility] [place] [address] Diabetes mellitus type 1, uncomplicated; CKD (chronic kidney disease), stage III Discharge Disposition: Home Social History Tobacco Use [...] as of this encounter Progress Notes * Rambo Grewal MD - 11/04/2014 9:55 AM EDT Date: 10/28/2014 Patient: Jennifer Bob History of Present Illness: Ms. Jennifer Bob is an 54 y.o. 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 She was referred by Dr. Bateman. Her BMI of nearly 37 precludes her being a candidate for a pancreas alone transplant and if given one could induce ESRD of her failing kidney presumed to be from DN. Mrs. Bob has been insulin dependent since the age of 15. Her diabetic complications: atherosclerotic vascular disease (cerebrovascular, peripheral arterial are both known) and retinopathy, in addition to the nephropathy. Managed on an insulin pump for the last 12 years. HgbA1c low 8s. History of labile diabetic control but no true hypoglycemic unawareness since achieving control with pump.. Left lower extremity SANDI stenting (2005) with in-stent stenosis that prompted repeat stenting in 2012 s/p right GUN STOCK CHECKER to above knee popliteral bypass S/p ulcer on the right pretibial area no amputations. > 50 pack-year history of smoking and quit approximately three months ago S/p GINGER + BSO for benign ovarian mass10 years ago. Problem List: Patient Active Problem List Diagnosis Code ??? Hyperkeratosis palmaris et plantaris 757.39 ??? Intermittent claudication 443.9 ??? PAD (peripheral artery disease) 443.9 ??? 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 Carotid stenosis 433.10 ??? PDR (proliferative diabetic retinopathy) 250.50, 362.02 Past Medical History: ?? Insulin-dependent diabetes mellitus ?? Diabetic nephropathy (GFR in the Stage III range with decline from 40 to 33 in the last 2 years) ?? Diabetic retionopathy ?? Cerebrovascular disease (s/p bilateral CEA) with recurrent 50-60% stenosis in the left ICA following prior CEA ?? Peripheral vascular disease bilateral lower extremities ?? LLE claudication history ?? HTN ?? Dyslipidemia ?? Tobacco abuse, quit 3 months ago after 50+ p-y history ?? Depression Past Surgical History: ?? GINGER + BSO for benign ovarian mass ?? Bilateral rotator cuff surgeries ?? Left EIA stenting 2005 ?? Left EIA stenting for in-stent stenosis 2012 ?? Right GUN STOCK CHECKER to above knee popliteal bypass 2008 ?? Left carotid endarterectomy 2000 ?? Right carotid endarterectomy 2004 ?? Laser eye surgery ?? Cataract extraction FAMILY HISTORY: Family History Family History Problem Relation Age of Onset ??? Cataracts Mother ??? Diabetes Father ??? Heart Disease Father ??? Cancer Maternal Grandmother ??? Thyroid Disease Neg Hx ??? Stroke Neg Hx ??? Strabismus Neg Hx ??? Retinal Detachment Neg Hx ??? Macular Degeneration Neg Hx ??? Hypertension Neg Hx ??? Glaucoma Neg Hx ??? Blindness Neg Hx ??? Amblyopia Neg Hx ?? Son with a history of ESRD secondary to IgA nephropathy SOCIAL HISTORY: History Substance Use Topics ??? Smoking status: Former Smoker -- up to 1.5 ppd since age 15y Types: Cigarettes Quit date: 08/14/2014 ??? Smokeless tobacco: Never Used ??? Alcohol Use: No Visit Vitals: Pulse 70 Resp 16 Ht 170.2 cm (5' 7) Wt 105.87 kg (233 lb 6.4 oz) BMI 36.55 kg/m2 SpO2 98% Diagnoses: CKD stage 3-4 Allergies: Sulfa (sulfonamide antibiotics) and Penicillins Current Meds: Scheduled Meds: Current Medications Current Outpatient Prescriptions Medication Sig Dispense Refill ??? amLODIPine (NORVASC) 5 mg Tablet Take 1 tablet by mouth daily. 30 tablet 3 ??? atenolol (TENORMIN) 25 mg Tablet Take 25 mg by mouth daily. ??? levothyroxine (SYNTHROID) 125 mcg Tablet Take 125 mcg by mouth daily. ??? losartan (COZAAR) 100 mg Tablet Take 100 mg by mouth daily. ??? HUMULIN R Solution Inject 15 Units subcutaneously 3 times daily as needed. ??? cilostazol (PLETAL) 100 mg tablet Take 1 tablet by mouth 2 times daily. 180 tablet 3 ??? CYANOCOBALAMIN, VITAMIN B-12, (VITAMIN B-12 ORAL) Take by mouth daily. ??? Magnesium 250 mg Tab Take by mouth daily. ??? aspirin 81 mg EC tablet Take 81 mg by mouth daily. ??? citalopram (CELEXA) 20 mg tablet Take 20 mg by mouth daily. ??? simvastatin (ZOCOR) 40 mg tablet Take 40 mg by mouth nightly. ??? dabigatran (PRADAXA) 150 mg capsule Take 150 mg by mouth 2 times daily. ??? insulin lispro (HUMALOG) 100 unit/mL injection Inject 55-60 Units subcutaneously continuous. Via insulin pump No current facility-administered medications for this visit. Labs: Lab Results Component Value Date CREATININE 1.60* 10/14/2014 K 4.9 06/13/2014 GLUCOSE 201* 06/13/2014 HCT 37.6 06/13/2014 WBC 7.3 06/13/2014 ROS: Review of Systems Constitutional: Negative for fever, chills, fatigue and unexpected weight change. Respiratory: Negative for cough, chest tightness, shortness of breath and wheezing. Cardiovascular: Negative for chest pain and leg swelling. Gastrointestinal: Negative for nausea, vomiting, abdominal pain, diarrhea, constipation and abdominal distention. Genitourinary: Negative for dysuria, urgency and hematuria. Neurological: Negative for tremors, seizures, weakness and numbness. Hematological: Does not bruise/bleed easily. All other systems reviewed and are negative. Body mass index is 36.55 kg/(m^2). Physical Exam: Physical Exam The complete exam was not performed due to the fact the patient is not a candidate for a pancreas tx. A pancreas transplant can be re considered once she succumbs to ESRD and is considering a kidney transplant. She likely because of morbid obesity would be better served receiving a kideny alone transplant. Impression/Recommendations: Ms. Bob is a 54-yo female with a history of Stage 3-4 CKD in the setting of long-standing IDDM. Stage 3-4 CKD is a significant barrier to CAKE INSPECTOR. I suggested she return when her GFR is approx 25 cc/min whereby an initial transplant evaluation can take place. In the meantime she ought to discuss living donation with whomever she comes into contact with. Total time 60 min in direct face to face head counselor * Johanna Niño RD - 10/29/2014 12:22 PM EDT TRANSPLANT NUTRITION Initial Transplant Note This senior underwriter met with Jennifer Bob a 54 y.o. year old female on 10/28/2014 for nutrition assessment as part of pancreas transplant work-up. Patient was here with her son and [id number] and metwith each member of the transplant team. Past Medical History Diagnosis Date ??? Allergy Sulfa, Penicillin ??? Cataract ??? Thyroid disease Hyperthyroidism ??? Cardiac disease PAD ??? Hypertension ??? Skin disease Hyperkeratosis palmaris et plantaris ??? Diabetes mellitus Type 1 ??? DM eyes ??? Hyperlipidemia Diabetic History: Type 1 Dialysis History: no reported history Food Record: B -> Syriac w/PB OR Cheerios w/blueberries and skim; L -> homemade muffin and yogurt; D -> protein, salad or 2 veggies Snacks on fruit if anything during the day but at HS has granola bar or Nabs. History (Social) Substance Use Topics ??? Smoking status: Former Smoker -- 0.5 packs/day Types: Cigarettes Quit date: 08/14/2014 ??? Smokeless tobacco: Never Used ??? Alcohol Use: No * Lives with her * Employment: [employer] Current Outpatient Prescriptions Medication Sig Dispense Refill ??? amLODIPine (NORVASC) 5 mg Tablet Take 1 tablet by mouth daily. 30 tablet 3 ??? atenolol (TENORMIN) 25 mg Tablet Take 25 mg by mouth daily. ??? levothyroxine (SYNTHROID) 125 mcg Tablet Take 125 mcg by mouth daily. ??? losartan (COZAAR) 100 mg Tablet Take 100 mg by mouth daily. ??? HUMULIN R Solution Inject 15 Units subcutaneously 3 times daily as needed. ??? cilostazol (PLETAL) 100 mg tablet Take 1 tablet by mouth 2 times daily. 180 tablet 3 ??? CYANOCOBALAMIN, VITAMIN B-12, (VITAMIN B-12 ORAL) Take by mouth daily. ??? Magnesium 250 mg Tab Take by mouth daily. ??? aspirin 81 mg EC tablet Take 81 mg by mouth daily. ??? citalopram (CELEXA) 20 mg tablet Take 20 mg by mouth daily. ??? simvastatin (ZOCOR) 40 mg tablet Take 40 mg by mouth nightly. ??? dabigatran (PRADAXA) 150 mg capsule Take 150 mg by mouth 2 times daily. ??? insulin lispro (HUMALOG) 100 unit/mL injection Inject 55-60 Units subcutaneously continuous. Via insulin pump No current facility-administered medications for this visit. Anthropometrics Height: 67 (170.2cm) Weight: 105.9kg (233#) BMI: 36.6 AIBW: 72.5kg Recent weight change: patient states that with increased edema since initiation of amlodipine her weight has increased Weight goal: 205# (93.2kg) for BMI of 32 Nutritional Concerns: Patient needs to lose ~28# in order to meet our transplant criterion for BMI; for a pancreas transplant BMI must be <32 for recipients. Assessment/Plan: Weight is a nutritional contraindications to transplant noted. I provided her with a printed copy of present weight and BMI and her goal BMI and weight. I encouraged increase in exercise to help increase her metabolic rate. She has been working with the dietitian in Endocrinology for better glucosecontrol. Good comprehension verbalized: means for contact provided. Plan communicated to Implementation Architect for Documentation in patient's transplant medical record. Remain available for questions/concerns. documented in this encounter Plan of Treatment Upcoming Encounters Date Type Department Care Team (Late st Contact Info) Description 12/19/2023 1:00 PM EDT Tech [place] [address] Marguerite Macias 12/19/2023 3:00 PM EDT Office Visit Vascular Surgery at [place] [phone] Gardenia Golden APRN [facility] [place] [address] 01/29/2024 1:[address] [place] [address] César Escobar MD [facility] [place] [address] 01/29/2024 2:30 PM EDT Office Visit Thoracic Surgery at [place] [phone] César Escobar MD [facility] [place] [address] documented as of this encounter Visit Diagnoses Diagnosis Diabetes mellitus type 1, uncomplicated Type I (juvenile type) diabetes mellitus without mention of complication, not stated as uncontrolled CKD (chronic kidney disease), stage III Chronic kidney disease, Stage III (moderate) documented in this encounter Care Teams Emt I/85 Relationship Specialty Start Date End Date Geovany Hunt PA [address] [place] [address] PCP - General 10/20/14 11/18/14 documented as of this encounter
--- OUTSIDE RECORDS SUMMARY | 2023-12-13 18:31 | XMS_ITS | Encounter Summary ---
[facility] Organization [facility] [place] [address] Care Team Providers Care Tab Cutting Machine Operator Name Role Phone Shirley Yu MD Primary Care Provider [phone] Reason for Visit * Reason Onset Date Comments Medication Refill 03/03/2015 Encounter Details Date Type Department Care Team (Late Contact Info) Description 03/03/2015 Refill [place] [phone] Lluvia Oropeza METEOROLOGIST [facility] [place] [address] Social History Tobacco Use Types Packs/Day Years [...] PM EDT Tech Visit [place] [address] Marguerite Macias 12/19/2023 3:00 PM EDT Office Visit [place] [address] Gardenia Golden APRN [facility] [place] [place] [address] 01/29/2024 1:[address] [place] [phone] César Escobar MD [facility] [place] [address] 01/29/2024 2:30 PM EDT Office [place] [phone] César Escobar MD [facility] [place] [address] documented as of this encounter Visit Diagnoses Not on filedocumented in this encounter Care Teams Tab Cutting Machine Operator Relationship Specialty Start Date End Date Shirley Yu MD [address] [place] [address] PCP - General 11/19/14 documented as of this encounter
--- OUTSIDE RECORDS SUMMARY | 2023-12-13 18:31 | XMS_ITS | Encounter Summary ---
[place] [address] Care Team Providers Care Hand I Tube Bender Name Role Phone Geovany Hunt Primary Care Provider [phone] Encounter Details Date Type Department Care Team (Late st Contact Info) Description 10/28/2014 Multidisciplinary Ca re Committee [place] [address] Mary Gonzalez RN Social History Tobacco Use [...] Progress Notes * Mary Nichole RN - 10/28/2014 8:50 AM EDT Wrong patient documented in this encounter Plan of Treatment Upcoming Encounters Date Type Department Care Team (Late st Contact Info) Description 12/19/2023 1:00 PM EDT Tech Visit [place] [address] Marguerite Macias 12/19/2023 3:00 PM EDT Office Visit Vascular Surgery at [place] [phone] Gardenia Golden APRN [facility] [place] [address] 01/29/2024 1:[address] [place] [address] César Escobar MD [facility] [place] [address] 01/29/2024 2:30 PM EDT Office [place] [phone] César Escobar MD [facility] DR THORACIC SURGERY [place], [place] [id number] documented as of this encounter Visit Diagnoses Not on filedocumented in this encounter Care Teams Hand I Tube Bender Relationship Specialty Start Date End Date Geovany Hunt PA [address] [place] [address] PCP - General 10/20/14 11/18/14 documented as of this encounter
--- OUTSIDE RECORDS SUMMARY | 2023-12-13 18:31 | XMS_ITS | Encounter Summary ---
Author Organization [facility] [place] [address] Care Team Providers Care Black Top Spreader Machine Operator Name Role Phone Shirley Yu MD Primary Care Provider [phone] Reason for Visit * Reason Comments PDR 6 month follow up fo r PDR s/p PRP OU. Timothy Vega M.D. Encounter Details Date Type Department Care Team (Late st Contact Info) Description 02/17/2015 8:45 AM EST Office [place] [address] Timothy Vega MD [facility] 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 I suspect is a minimum she will need treatment in the right eye and the left eye in the short-term. She has to neovascularization of the disc which signals ongoing neovascularization. This is active neovascularization and not simply a regressive pattern. I will have her return in the next couple ofmonths for PRP laser in the left eye after you have seen her. Certainly, having a clear capsulotomywill make laser a bit easier as well She does have some mild drusen but these have not progressed in no exudative features are apparent Overall, I think Jennifer is doing very well but will will need to follow her very carefully in the next several months Respectfully Timothy documented in this encounter Plan of Treatment Upcoming Encounters Date Type Department Care Team (Late st Contact Info) Description 12/19/2023 1:00 PM EDT Tech Visit Vascular Lab at [place] [phone] Marguerite Macias 12/19/2023 3:00 PM EDT Office [place] [address] Gardenia Golden, [facility] [place] [address] 01/29/2024 1:[address] [place] [address] César Escobar MD [facility] [place] [address] 01/29/2024 2:30 PM EDT Office [place] [address] César Escobar MD [facility] [place] [address] documented as of this encounter Visit Diagnoses Diagnosis Proliferative diabetic retinopathy without macular edema associated with diabetes mellitus due to underlying condition documented in this encounter Care Teams Black Top Spreader Machine Operator Relationship Specialty Start Date End Date Shirley Yu MD [address] [place] [address] PCP - General 11/19/14 documented as of this encounter
--- OUTSIDE RECORDS SUMMARY | 2023-12-13 18:31 | XMS_ITS | Encounter Summary ---
Author Organization Formerly [place] [address] Care Team Providers Care Retail Sales Manager Name Role Phone Geovany Hunt Primary Care Provider [phone] Encounter Details Date Type Department Care Team (Late st Contact Info) Description 10/28/2014 1:00 PM EDT Office [place] [address] Timothy Martinez MD [facility] [place] [address] IDDM (insulin dependent diabetes mellitus) Discharge Disposition: Home Social History Tobacco Use [...] Sign Reading Time Taken Comments Blood Pressure - - Pulse 70 10/28/2014 12:52 PM EDT Temperature - - Respiratory Rate 16 10/28/2014 12:5 2 PM EDT Oxygen Saturation 98% 10/28/2014 12: 52 PM EDT Inhaled Oxygen Concentration - - Weight 105.9 kg (233 lb 6.4 oz) 015 12:52 PM EDT Height 170.2 cm (5' 7) 10/28/2014 12:5 2 PM EDT Body Mass Index 36.56 10/28/2014 12:52 PM EDT documented in this encounter Progress Notes * Timothy Martinez MD - 10/28/2014 3:36 PM EDT Initial Evaluation: Transplantation Date: 10/28/2014 Patient: Jennifer Bob History of Present Illness: Ms. Jennifer Bob is an 54 y.o. female with a long-standing history of IDDM who was referred to our program for a pancreas transplant evaluation. She has Stage III CKD and is not a candidate for simultaneous kidney transplantation at this time. Mrs. Bob has been insulin dependent since the age of 15. Her diabetic complications include diffuse atherosclerotic vascular disease (cerebrovascular, peripheral arterial are both known, no recentcardiac workup) and retinopathy, in addition to the nephropathy. She has been managed on an insulinpump for the last 12 years and has a hgbA1c that currently runs in the low 8 range. She has a history of labile diabetic control, however, she has not suffered from significant hypoglycemic events since she was transitioned to the insulin pump over a decade ago. She does have a history of two priorEMS activations for hypoglycemic unawareness associated hypoglycemic events that preceded the pump m anagement of her diabetes. She denies claudication and rest pain in the lower extremities. She has had prior left lower extremity SANDI stenting (2005) with in-stent stenosis that prompted repeat stenting in 2012. She has a history of prior right ROLLER STITCHER to above knee popliteral bypass. She has no history of foot ulcers. She had along- standing ulcer on the right pretibial area that is now well healed. She has no history of amputations. She has no history of angina or dyspnea. She has a > 50 pack-year history of smoking and quit approximately three months ago. I do not have a record of recent cardiac testing in the [facility] system. She tells me that she underwent TTE testing a few weeks ago and that this was normal. She did not have a cardiac stress test. Her abdominal/pelvic surgical history is notable for prior GINGER + BSO for an ovarian mass that proved to be benign. This procedure was over 10 years ago. Problem List: Patient Active Problem [...] stenting for in-stent stenosis 2012 ?? Right ROLLER STITCHER to above knee popliteal bypass 2008 ?? Left carotid endarterectomy 2000 ?? Right carotid endarterectomy 2004 ?? Laser eye surgery ?? Cataract extraction FAMILY HISTORY: Family History Problem Relation Age of Onset [...] oz) BMI 36.55 kg/m2 SpO2 98% Diagnoses: No diagnosis found. Allergies: Sulfa (sulfonamide antibiotics) and Penicillins Current Meds: Scheduled Meds: Current Outpatient Prescriptions Medication Sig Dispense Refill [...] is 36.55 kg/(m^2). Physical Exam: Physical Exam Vitals reviewed. Impression/Recommendations: Ms. Bob is a 54-yo female with a history of Stage III CKD in the setting of long-standing IDDM. She has a distant history of hypoglycemic complications of hypoglycemic unawareness; however, these events all preceded her transition to an insulin pump over a decade ago. Her HgbA1c currently runs in the low 8 range. She is a very high risk candidate for pancreas transplantation alone based upon her age and significant vascular disease history. She has known bilateral peripheral vascular disease with evidence of recurrent left SANDI in-stent stenosis that has required repeat stenting. She is currently asymptomatic from a PVD standpoint. She has known carotid artery disease with bilateral CEA's and has recurrentstenosis to the ~60% range on the left side as of her last imaging in 2012. She has not had more recent followup with the Vascular team and there is no more recent data to assess the state of her vascular disease as of today's evalaution. She also has Stage III CKD which is a significant barrier to HOUSING CASE MANAGER. Given her significant vascular history, I would favor coronary catheterization prior to consideration for transplantation and the IV contrast agent would push her towards dialysis therapy. She may require lower extremity angiography as well. Even in the absence of a contrast load, the Prograf that is required for pancreas transplantation would accelerate her decline in renal function. Given the lack of diabetic complications thatare indications for HOUSING CASE MANAGER at this time, I do not feel that the risk to her kidneys is warranted. We could consider SPK in the setting of the nephropathy that would ensue from the workup for transplantat ion, though at her age with current average waiting times, this procedure would not take place until she is in her 60's. With her comorbid history, I do not favor this approach. If she maintains the current trajectory, it is possible that she could have enough miami kidney function to remain off of dialysis for another 4 - 5 years. This is never predictable and she understands this. She does notfavor moving forward with pancreas transplantation alone with the knowledge of these issues. We addressed kidney transplantation and I think that this will be the better option for her once she has enough decline in her kidney function to warrant it. She does not currently have individuals who are willing to donate a kidney to her and I asked her to discuss this issue with anyone who mightbe interested as her kidney function declines. When her GFR decreases to the 15-20 range, we could feasibly consider coronary catheterization, vascular workup of her lower extremities (possibly with lower extremity angiography), a short period of dialysis therapy, and then early post-dialysis startkidney transplantation from a live donor if she finds an available candidate. Her son (one of our kidney transplant recipients) was with her in the clinic today and he felt that they would be able toidentify someone in the family or her social circles. I asked her to contact the Vascular Surgery office in order to re-establish followup with their group. She will require routine surveillance for her carotid disease and lower extremity vascular disease. If it has not taken place prior to consideration for kidney transplantation, a Vascular surgery evaluation will be a mandatory component of her transplant workup (though I recommended that she address these issues now rather than wait). Her lower extremity perfusion issues concern me from both the standpoint of flow to the legs and to a transplant graft. We will need further assurance that this does not pose a significant risk to her limb or the organ. She will contact our office when her GFR falls to the 20 range at which time we can readdress thesekidney transplant issues. I do not favor consideration for pancreas transplantation at this time. Counseling The advantages and disadvantages of transplantation were reviewed with Ms. Bob. We reviewed the operative procedure and potential complications, including the risks of bleeding, infection, rejection, disease transmission, and the need for re-operation. I addressed issues of post-operative recovery and follow-up. Lastly I discussed the need for life long immunosuppressive therapy and the risk associated with this treatment. She appears to have a good understanding of her medical condition andthe transplant process. I spent approximately 45 minutes with the patient and her family, of which the entire period was incounseling about pancreas transplantation, kidney transplantation, vascular disease, and the potential renal complications of immunosuppression therapy. MD: Timothy Martinez MD documented in this encounter Plan of Treatment Upcoming Encounters Date Type Department Care Team (Late st Contact Info) Description 12/19/2023 1:00 PM EDT Tech [place] [address] Marguerite Macias 12/19/2023 3:00 PM EDT Office [place] [address] Gardenia Golden APRN [facility] [place] [address] 01/29/2024 1:[address] [place] [address] César Escobar MD [facility] DR THORACIC SURGERY [place], [place] [id number] 01/29/2024 2:30 PM EDT Office [place] [phone] César Escobar MD [facility] [place] [address] documented as of this encounter Visit Diagnoses Diagnosis IDDM (insulin dependent diabetes mellitus) Type II or unspecified type diabetes mellitus without mention of complication, not stated as uncontrolled documented in this encounter Care Teams Retail Sales Manager Relationship Specialty Start Date End Date Geovany Hunt PA [address] [place] [address] PCP - General 10/20/14 11/18/14 documented as of this encounter
--- OUTSIDE RECORDS SUMMARY | 2023-12-13 18:31 | XMS_ITS | Encounter Summary ---
Author Organization [facility] [place] [address] Care Team Providers Care Welder Gun Name Role Phone Shirley Yu MD Primary Care Provider [phone] Encounter Details Date Type Department Care Team (Late st Contact Info) Description 10/14/2014 3:00 PM EDT Office [place] [address] Carmen Arredondo [facility] [place] [address] Type I (juvenile type) diabetes mellitus with [...] Progress Notes * Carmen Arredondo LD - 10/14/2014 5:57 PM EDT Diabetes Education: Casandra has type 1 diabetes, CKD, uses tobacco and is on a MiniMed 523 insulin pump: Downloaded and see Lluvia Oropeza APRN's notes for settings I reviewed pump use and gave her a One Touch Ultra Link meter and linked it to her pump so her readings (not just the highs) are stored. I also went over how and when to use temp basal. Currently she manually boluses 3 - 4 x a day and 2-3 x a day with the wizard for correcting. She never enters carbs into the pump Diet history: Marquita is urdu with pnb or cheerios with blueberries and skim: 35 - 54 Lunch is homemade muffin and yogurt - 50 - 60 May have fruit for snack 15 - 25 Dinner varies 30 - 60 May have granola bar or nabs for snack. 22 - 27 I gave her carb amounts (above) for each of these meals and snacks and urged her to use the bolus wizard. It can also track insulin on board which can help prevent hypoglycemia. documented in this encounter Plan of Treatment Upcoming Encounters Date Type Department Care Team (Late st Contact Info) Description 12/19/2023 1:00 PM EDT Tech Visit Vascular Lab at [place] [phone] Marguerite Macias 12/19/2023 3:00 PM EDT Office [place] [address] Gardenia Golden APRN [facility] [place] [address] 01/29/2024 1:[address] [place] [address] César Escobar MD [facility] [place] [address] 01/29/2024 2:30 PM EDT Office [place] [address] César Escobar MD [facility] [place] [address] documented as of this encounter Visit Diagnoses Diagnosis Type I (juvenile type) diabetes mellitus with renal manifestations, uncontrolled(250.43) Type I (juvenile type) diabetes mellitus with renal manifestations, uncontrolled documented in this encounter Care Teams Welder Gun Relationship Specialty Start Date End Date Shirley Yu MD [address] [place] [address] PCP - General 03/02/10 10/19/14 documented as of this encounter
--- OUTSIDE RECORDS SUMMARY | 2023-12-13 18:31 | XMS_ITS | Encounter Summary ---
Author Organization [facility] Address [facility] [place] [address] Care Team Providers Care E Commerce Analyst Name Role Phone Zofia Yu MD Primary Care Provider [phone] Encounter Details Date Type Department Care Team (Late st Contact Info) Description 10/15/2014 2:00 PM EDT Follow-Up Nephrology [place] [address] Rafi Bateman MD [facility] [place] [address] Proteinuria; Leg swelling; CKD (chronic kidney disease), stage III Discharge [...] Sign Reading Time Taken Comments Blood Pressure 118/56 10/15/2014 2:28 PM EDT Pulse 84 10/15/2014 2:28 PM EDT Temperature - - Respiratory Rate - - Oxygen Saturation - - Inhaled Oxygen Concentration - - Weight 105.2 kg (232 lb) 10/15/2014 2:28 PM EDT Height 170.2 cm (5' 7) 10/15/2014 2:28 PM EDT Body Mass Index 36.34 10/15/2014 2:28 PM EDT documented in this encounter Progress Notes * Rafi Bateman MD - 10/16/2014 11:03 AM EDT The relevant details regarding Jennifer Bob were reviewed with Dr. Benz. The assessment and plan were formulated in discussion with me and I agree with them as documented, with the following additions. I have seen and examined the patient, providing the parham components as outlined below. I agree with Dr. Benz's exam findings. Findings are consistent with chronic kidney disease, stage G3b, A2. Plans as outlined. * Bernadette Benz - 10/15/2014 4:16 PM EDT [facility] Nephrology/Hypertension Follow Up Jennifer Bob [id number] 1960 ID: [id number] y.o. female for f/u for CKD, HTN PAST MEDICAL HX: DM type 1 since [...] an insulin pump Still smoked 0.5 ppd. Interval history: She comes in today for a new problem of tense leg swelling. Feels her feet are really tense. She has tried elevating her legs but has not really worn the pressure stockings prescribed to her. She wasseen in diabetic clinic yesterday and has been trying to work on better BG control. Her insulin doses are being changed. She has checked BP at home but not regularly and its better controlled now. ROS: -no fever, chills, night sweats -no headache, blurring of vision, diplopia -no dysphagia, hearing problems -no chest pain, palpitation, no HILL, orthopnea -no cough or SOB -no abdominal pain, nausea, vomiting or diarrhea -no rash + neuropathy + LE swelling Medications: Prior to Admission medications Medication Sig Start Date End Date Taking? Authorizing Provider amLODIPine (NORVASC) 5 mg Tablet Take 1 tablet by mouth daily. 10/15/14 Yes Bernadette Benz MD atenolol (TENORMIN) 25 mg Tablet Take [...] ??? Penicillins Unknown PHYSICAL EXAM: Filed Vitals: 10/15/14 1428 BP: 118/56 Pulse: 84 Gen - AAO x 3 in NAD Skin - No rash HEENT - Moist mucous membranes Chest: Lungs clear to auscultation, no wheezes/ rhonchi/ crackles. Heart - S1/S2 normal, no murmur, gallop, or rub. JVP not elevated. Abd - Soft. + BS. No bruit. Non tender. No organomegaly. Ext - Warm. No cyanosis. No dependent edema. Labs/ Imaging: Results for JENNIFER BOB ( ) as of 10/16/2014 11:00 Ref. Range 06/13/2014 09:00 06/13/2014 10:34 10/14/2014 13:37 10/15/2014 14:00 WBC Latest Range: 4.0-10.0 x10(3)/mcL 7.3 RBC Latest Range: 3.93-5.22 x10(6)/mcL 4.08 Hemoglobin Latest Range: 11.2-15.7 gm/dL 12.2 Hematocrit Latest Range: 34.0-45.0 % 37.6 MCV Latest Range: 79.0-94.0 fL 92.2 MCH Latest Range: 26.6-32.2 pg 29.9 MCHC Latest Range: 32.0-36.5 gm/dL 32.4 RDWSD Latest Range: 35.0-46.0 fL 45.0 RDWCV Latest Range: 10.9-14.4 % 13.4 Platelets Latest Range: 145-370 x10(3)/mcL 261 MPV Latest Range: 9.0-12.0 fL 10.7 Neutr Abs (ANC) Latest Range: 1.50-6.30 x10(3)/mcL 5.10 Neutrophils % No range found 69.8 Immature Gran % No range found 0.10 Lymphocytes % No range found 22.6 Monocytes % No range found 4.2 Eosinophils % No range found 2.9 Basophils % No range found 0.4 Leatha Gran Abs Latest Range: 0.00-0.05 x10(3)/mcL 0.01 Lymphocytes Abs Latest Range: 1.0-3.6 x10(3)/mcL 1.6 Monocyte Abs Latest Range: 0.2-1.0 x10(3)/mcL 0.3 Eosinophils Abs Latest Range: 0.0-0.5 x10(3)/mcL 0.2 Basophils Abs Latest Range: 0.0-0.2 x10(3)/mcL 0.0 Sodium Latest Range: 135-145 mmol/L 142 Potassium Latest Range: 3.5-5.0 mmol/L 4.9 Chloride Latest Range: 98-107 mmol/L 103 CO2 Latest Range: 22-31 mmol/L 25 Anion Gap Latest Range: 5-15 mmol/L 14 BUN Latest Range: 8-18 mg/dL 26 (H) Creatinine Latest Range: 0.70-1.20 mg/dL 1.49 (H) 1.60 (H) Estimated GFR Latest Range: >=60 36 (L) 33 (L) Glucose Lvl Latest Range: 60-199 mg/dL 201 (H) Calcium Latest Range: 8.5-10.5 mg/dL 9.5 Hemoglobin A1C Latest Range: 4.3-5.6 % 8.5 (H) Est Avg Gluc No range found 197 Phosphorus Latest Range: 2.5-4.5 mg/dL 3.9 U Protein Ran Latest Range: 0-12 mg/dL 10 Chol, Total Latest Range: <=199 mg/dL 160 HDL Latest Range: >=40 mg/dL 78 Chol/HDL Ratio No range found 2.1 LDL Chol Direct Latest Range: <=99 mg/dL 77 TSH Latest Range: 0.27-4.20 mcIU/mL 2.42 PTH Latest Range: 15-65 pg/mL 40 U Creatinine No range found 34 118 Prot/Cre Ratio No range found 0.3 U Ran Malb Calc No range found 122 U Ran Malb Conc No range found 144.2 Urine dipstick today no blood, no leukocytes, trace protein Impression/ Plan: ?? CKD stage G3b, HTN, Diabetic nephropathy ?? Suboptimal control of DM ?? Well controlled HTN on current regimen ?? Slight elevated creatinine but over all no great changes from baseline, will follow closely Plan: Prescribed a different kind of compression stockings on pt request Decreasing amlodipine dose to 5 mg Continue the rest of the regimen the same way as her BP is well controlled now Follow labs in 3 months Asked to have labs faxed to our office if she gets them done elsewhere. Will copy to transplant medicine as pt is requesting to be evaluated for pancreas transplant Follow up: 3 months with diabetic clinic Seen and Discussed w/ Dr. Fransico Benz MD Nephrology Fellow Pager# [phone] ZOFIA YU MD [address] [place] [address] documented in this encounter Miscellaneous Notes * Addendum Note - Rafi Bateman MD - 10/16/2014 11:04 AM EDTAddended by: RAFI BATEMAN on: 10/16/2014 11:04 AM Modules accepted: Level of Service * Addendum Note - Benjy Lopez - 10/15/2014 4:40 PM EDTAddended by: BENJY LOPEZ on: 10/15/2014 04:40 PM Modules accepted: Orders * Addendum Note - Bernadette Benz - 10/15/2014 4:39 PM EDTAddended by: BERNADETTE BENZ on: 10/15/2014 04:39 PM Modules accepted: Level of Service documented in this encounter Plan of Treatment Upcoming Encounters Date Type Department Care Team (Late st Contact Info) Description 12/19/2023 1:00 PM EDT Tech [place] [phone] Marguerite Macias 12/19/2023 3:00 PM EDT Office Visit [place] [address] Gardenia Golden APRN [facility] [place] [place] [address] 01/29/2024 1:[address] [place] [address] César Escobar MD [facility] [place] [address] 01/29/2024 2:30 PM EDT Office Visit [place] [address] César Escobar MD [facility] [place] [address] documented as of this encounter Procedures Procedure Name Priority Date/Time Associated Diagnosis Comments U ALBUMIN/CRE RATIO Routine 10/15/2014 2 :00 PM EDT Proteinuria documented in this encounter Results * Microalbumin, urine, random (01/14/2015 1:10 PM EDT) Creatinine, Urine 39 mg/dL CE RNER MILLENNIUM Albumin, Urine 33.6 mg/L CERNE R MILLENNIUM Albumin / Creatinin Ratio, Urine 86 mcg/mg Cr CERNER MILLENNIUM Comment: Reference Range* Random collection (mcg/mg creatinine) Normal ?<30 Microalbuminuria ?? 30 - 300 Clinical Albuminuria ?? >300 *[place] [employer]. Diabetic Nephropathy. Diabetes Care 1997;(Suppl 1):S24-S27 Exercise within 24 hour, infection, fever, CHF, marked hyperglycemia, and marked hypertension may elevate urinary albumin excretion over baseline values. Urine specimen (specimen) 01/14/2015 1:10 PM EDT 01/14/2015 1:33 PM EDT Narrative Resulting Agency Comment Spec In Lab Rafi Bateman MD URINE ORDERABLES Performing Organization Address City/[facility]/ZIP Co de Phone Number Let's TalkIUM * Phosphorus (01/14/2015 12:44 PM EDT) Phosphorus 3.9 2.5 - 4.5 mg/dL MARCO Morf MediaENNIUM Blood specimen (specimen) 01/14/2015 12:44 PM EDT 01/14/2015 12:53 PM EDT Narrative Resulting Agency Comment Spec In Lab Rafi Bateman MD CHEMISTRY ORDERAB LES [email or web address] * (ABNORMAL) Basic Metabolic Panel (non-fasting) (01/14/2015 12:44 PM EDT) [facility] Glucose 216(H) 65 - 199 mg/dL CERNER MILLENNIUM Comment:Diabetes: >=200 mg/d L plus symptoms Blood Urea Nitrogen 26(H) 8 - 18 mg/dL CERNER MILLENNIUM Creatinine 1.61(H) 0.70 - 1.20 mg/dL CERNER MILLENNIUM Comment: Please note that the pediatric reference intervals supplied above were not validated at [facility]. Results from pediatric patients should be interpreted [...] the following links into your internet browser. [email or web address] Blood specimen (specimen) 01/14/2015 12:44 PM EDT 01/14/2015 12:53 PM EDT Narrative Resulting Agency Comment Spec In Lab Rafi Bateman MD CHEMISTRY ORDERAB LES MARCO SIEGEL * Microalbumin, urine, random (10/15/2014 2:00 PM EDT) Creatinine, Urine 118 mg/dL BENI SIEGEL Albumin, Urine 144.2 mg/L KERRIE Roca NATHALIEENNIUM Albumin / Creatinin Ratio, Urine 122 mcg/mg Cr MARCO SIEGEL Comment: Reference Range* Random collection (mcg/mg creatinine) Normal ?<30 Microalbuminuria ?? 30 - 300 Clinical Albuminuria ?? >300 *[place] [employer]. Diabetic Nephropathy. Diabetes Care 1997;(Suppl 1):S24-S27 Exercise within 24 hour, infection, fever, CHF, marked hyperglycemia, and marked hypertension may elevate urinary albumin excretion over baseline values. Urine specimen (specimen) 10/15/2014 2:00 PM EDT 10/15/2014 4:43 PM EDT Narrative Resulting Agency Comment Spec In Lab Rafi Bateman MD URINE ORDERABLES MARCO SIEGEL documented in this encounter Visit Diagnoses Diagnosis Proteinuria Leg swelling Swelling of limb CKD (chronic kidney disease), stage III Chronic kidney disease, Stage III (moderate) documented in this encounter Care Teams E Commerce Analyst Relationship Specialty Start Date End Date Zofia Yu MD [address] [place] [address] PCP - General 03/02/10 10/19/14 documented as of this encounter
--- OUTSIDE RECORDS SUMMARY | 2023-12-13 18:31 | XMS_ITS | Encounter Summary ---
Author Organization Formerly [facility] [place] [address] Care Team Providers Care Combat Systems Operator Mine Warfare Name Role Phone Shirley uY MD Primary Care Provider [phone] Reason for Visit * Reason Comments Diabetes Encounter Details Date Type Department Care Team (Latest Contact Info) Description 02/18/2015 11:00 AM EST Office [place] [address]lu[address]pe[address] [facility] 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, with unspecified retinopathy severity; Hypothyroidism, unspecified hypothyroidism type Social History Tobacco Use Types Packs/Day [...] Sign Reading Time Taken Comments Blood Pressure 125/63 02/18/2015 10:46 AM EST Pulse 61 02/18/2015 10:46 AM EST Temperature - - Respiratory Rate - - Oxygen Saturation - - Inhaled Oxygen Concentration - - Weight 104.1 kg (229 lb 9.6 oz) 015 10:46 AM EST Height 170.2 cm (5' 7) 02/18/2015 10:4 6 AM EST Body Mass Index 35.96 02/18/2015 10:46 AM EST documented in this encounter Progress Notes * Lluvia Oropeza, CERTIFIED FLIGHT INSTRUCTOR - 02/18/2015 11:36 AM EST DATE OF VISIT: 02/18/2015. REASON FOR VISIT: Follow up type 1 DM in continued poor control with widely fluctuating glucose levels, using a MiniMed insulin pump. BRIEF HISTORY: Presents and brings meter and pump upgrade. Has appointment later this a.m. with RONNIE JOHNSON. COMPLICATIONS: Retinopathy, nephropathy. DATE OF DIAGNOSIS OF DIABETES: At age 15. DIABETES REGIMEN: MiniMed pump. Basal rates 12 a.m. 1.4, 6:30 1.35, 9 1.45, 12:30 1.4, 1630 1.5, 1800 1.45, 2130 1.1. Syaauyc-fp-ugfg 1:10. Sensitivity 30. Target glucose 95 to 120. Active insulin 4 hours. REVIEW OF SYSTEMS: Depression and Mood: Takes Celexa. 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 Eyes: Followed closely by Dr. Vega. No recent headaches or chest pain or shortness of breath. No recent GI symptoms. Appetite: Good. Sleep Pattern: Has sleep apnea, uses CPAP mask. Extremities: Followed by vascular MD. Has had carotid surgeries and stents in her legs. PHYSICAL EXAMINATION: Appearance: She is overweight 229 pounds, same as it has been. Blood pressure 125/63. Eyes: Question of retinopathy with green light exam. Neck: No thyromegaly or lymphadenopathy. Heart: Regular rate and rhythm. No murmurs. Lungs: Clear to auscultation. Feet: Skin is dry. Pulses are normal. Neuro: Normal sensation to 10 g of pressure. Has pain in right first toe distal aspect. She wonders if she is starting to get an ingrown nail, but there is no erythema of nail bed. Point tenderness with palpation at the distal tip of the toe possibly related to arthritis. Hemoglobin A1c 8.6. Had appointment with librarian head in January and plans to have follow up lab draws for librarian head at her local lab. Prescription sent for Contour Next test strips to test six times a day. Reason for higher frequency testing is to avoid severe hypoglycemia and avoid severe hyperglycemia. She has had some low glucose levels in the 40s. Has appointment with RONNIE JOHNSON later this a.m. PHYSICAL ACTIVITY: Trying to do some walking and she has a stationary bike. Immunization up date, Prevnar 13 given. This was a 35-minute office visit with 34 minutes spent counseling [id number] with patient in the management of glucose levels, reviewing prevention and treatment of hypoglycemia. She always carries treatment with her and she checks her glucose levels before driving. Return to office in three months. Prefers to schedule appointment on same day. She has appointment with underground distribution engineer. Will check hemoglobin A1c, DLDL. Hypothyroidism, she is at the correct hormone replacement dose. Will recheck TSH in three months. Has had cataracts removed right and Left. Recent Results (from the past 72 hour(s)) Hemoglobin A1c Result Value Ref Range Hemoglobin A1C 8.6 (H) 4.3 - 5.6 % Est Avg Gluc 200 mg/dL documented in this encounter Plan of Treatment Upcoming Encounters Date Type Department Care Team (Late st Contact Info) Description 12/19/2023 1:00 PM EDT Tech [place] [address] Marguerite Macias 12/19/2023 3:00 PM EDT Office [place] [address] Gardenia Golden APRN [facility] [place] [address] 01/29/2024 1:[address] [place] [address] César Escobar MD [facility] [place] [address] 01/29/2024 2:30 PM EDT Office [place] [address] César Escobar MD [facility] [place] [address] documented as of this encounter Results * LDL Cholesterol, Direct (08/24/2015 2:23 PM EDT) LDL Cholesterol, Direct 80 <=99 mg/dL [facility] Comment: The National Cholesterol Education Program (NCEP) has set the following guidelines for LDL Cholesterol: Reference range: ?? Optimal: ?<100 mg/dL ?? Near Optimal/Above Optimal: ?? 100-129 mg/dL ?? Borderline high: ?130-159 mg/dL ?? High: ? 160-189 mg/dL ?? Very high: ?>mg=036 mg/dL [facility] 2001: 285(19):1549-1587 Blood specimen (specimen) 08/24/2015 2:23 PM EDT 08/24/2015 2:28 PM EDT Narrative Resulting Agency Comment Spec In Lab Paulino Oakley MD CHEMISTRY ORDERABLES [facility] [place] [address] * TSH (08/24/2015 2:23 PM EDT) Thyroid Stimulating Hormone 0.95 0.27 - 4.20 mcIU/mL [facility] Blood specimen (specimen) 08/24/2015 2:23 PM EDT 08/24/2015 2:28 PM EDT Narrative Resulting Agency Comment Spec In Lab Paulino Oakley MD CHEMISTRY ORDERABLES [facility] [place] [address] * (ABNORMAL) Hemoglobin A1c (08/24/2015 2:23 PM EDT) Hemoglobin A1c 9.6(H) 4.3 - 5.6 % [facility] Comment: Reference Range: 4.3 - [...] Mellitus, Diabetes Care 2013; 36: Suppl. 1, S67-86 Estimated Average Glucose 229 mg/dL [facility] Comment: eAG equivalents for HbA1c percentages: HbA1c(%) ?eAG(mg/dL) 6.0 ?126 6.5 ?140 7.0 ?154 7.5 ?169 8.0 ?183 8.5 ?197 9.0 ?212 9.5 ?226 10.0 ? 240 Limitations: The eAG calculation has not been validated on women, individuals below 18 years old and above 70 years old, and individuals with hemoglobinopathies. Additional resources are available on the ADA website: http://LineaQuattro.com/DHMCadacalc Chandra WELLS, Nikky J, Quinn R, et al. ??Translating the A1C assay into estimated average glucose values. ??Diabetes Care 2008:31(8):8167-5227. Blood specimen (specimen) 08/24/2015 2:23 PM EDT 08/24/2015 2:28 PM EDT Narrative Resulting Agency Comment Spec In Lab Paulino Oakley MD CHEMISTRY ORDERABLES Performing Organization Address City/State/[facility] Co de Phone Number [facility] [place] [address] documented in this encounter Visit Diagnoses Diagnosis Type 1 diabetes mellitus with diabetic retinopathy with macular edema, with unspecified retinopathy severity Hypothyroidism, unspecified hypothyroidism type documented in this encounter Care Teams Combat Systems Operator Mine Warfare Relationship Specialty Start Date End Date Shirley Yu MD [address] [place] [address] PCP - General 11/19/14 documented as of this encounter
--- OUTSIDE RECORDS SUMMARY | 2023-12-13 18:31 | XMS_ITS | Encounter Summary ---
[place] [address] Care Team Providers Care Tail Board Man Name Role Phone Shirley Yu MD Primary Care Provider Reason for Visit * Reason Onset Date Comments Other 01/27/2015 Fax form receive d from [facility] - Order for Insulin Pump & Supplies. Encounter Details Date Type Department Care Team (Late st Contact Info) Description 01/27/2015 [place] [phone] Stacy Clement RN Other (Fax form received from [facility] - Order for Insulin Pump & Supplies.) Social History Tobacco Use Types Packs/Day Years [...] encounter Miscellaneous Notes * Telephone Encounter - Stacy Clement RN - 01/27/2015 5:12 PM EDT Fax form received from [facility] - Written order for Insulin Pump Therapy Form completed and sent to Lluvia Oropeza APRN for signature. To be faxed to [facility] at # [phone] when signature is complete. documented in this encounter Plan of Treatment Upcoming Encounters Date Type Department Care Team (Late st Contact Info) Description 12/19/2023 1:00 PM EDT Tech [place] [address] Marguerite Macias 12/19/2023 3:00 PM EDT Office Visit Vascular Surgery at [place] [phone] Gardenia Golden APRN [facility] [place] [address] 01/29/2024 1:[address] [place] [address] César Escobar MD [facility] [place] [address] 01/29/2024 2:30 PM EDT Office [place] [phone] César Escobar MD [facility] [place] [address] documented as of this encounter Visit Diagnoses Not on filedocumented in this encounter Care Teams Tail Board Man Relationship Specialty Start Date End Date Shirley Yu MD [address] [place] [address] PCP - General 11/19/14 documented as of this encounter
--- OUTSIDE RECORDS SUMMARY | 2023-12-13 18:31 | XMS_ITS | Encounter Summary ---
Author Organization Formerly [facility] [place] [address] Care Team Providers Care Financial Coach Name Role Phone Shirley Yu MD Primary Care Provider [phone] Encounter Details Date Type Department Care Team (Late st Contact Info) Description 10/15/2014 Orders Only [place] [phone] Rafi Bateman MD [facility] [place] [address] Social History Tobacco Use Types Packs/Day Years [...] PM EDT Tech Visit [place] [phone] Marguerite Macias 12/19/2023 3:00 PM EDT Office [place] [phone] Gardenia Golden APRN [facility] [place] [address] 01/29/2024 1:[address] [place] [place] [address] César Escobar MD [facility] DR THORACIC SURGERY [place], [place] [id number] 01/29/2024 2:30 PM EDT Office [place] [address] César Escobar MD [facility] [place] [address] documented as of this encounter Visit Diagnoses Not on filedocumented in this encounter Care Teams Financial Coach Relationship Specialty Start Date End Date Shirley Yu MD [address] [place] [address] PCP - General 03/02/10 10/19/14 documented as of this encounter
--- OUTSIDE RECORDS SUMMARY | 2023-12-13 18:31 | XMS_ITS | Encounter Summary ---
Author Organization [facility] [place] [address] Care Team Providers Care Concrete Mason Name Role Phone Shirley Yu MD Primary Care Provider [phone] Encounter Details Date Type Department Care Team (Late st Contact Info) Description 12/10/2014 Orders [place] [phone] Tamiko Kent APRN [facility] [address] [place]ASC[place] [address] PAD (peripheral artery disease) Social History Tobacco [...] PM EDT Tech [place] [address] Marguerite Macias 12/19/2023 3:00 PM EDT Office Visit [place] [address] Gardenia Golden APRN [facility] [address] VASCULAR SURGERY [place], [place] [phone] 01/29/2024 1:[address] [place] [address] César Escobar MD [facility] THORACIC [place] [address] 01/29/2024 2:30 PM EDT Office [place] [address] César Escobar MD [facility] THORACIC [place] [address] documented as of this encounter Results * Cerebrovascular Duplex, Bilateral (08/24/2015 1:08 PM EDT) VB Text Report Department: Vascular Surgery Lab Patient: [id number] (JENNIFER WINTERS) CPT: 58874 ICD10: I73.9;I65.22 Referring Physician: ANNE-MARIE WALTERS ?? [...] Anne-Marie Walters MD VASCULAR ORDERABLES [facility] * Unilat Bypass Graft Assess (08/24/2015 12:28 PM EDT) VB Text Report Department: Vascular Surgery Lab Patient: [id number] (JENNIFER WINTERS) CPT: 83465 ICD10: I73.9 Referring Physician: ANNE-MARIE WALTERS ?? Indications: History of right CONTROL ELECTRICIAN-AK pop BPG; stenosis surveillance ICD10 Diagnosis Code: [...] Above Knee Right ?? Interpretation: Patent right CONTROL ELECTRICIAN-AK pop bypass graft with elevated velocity at the proximal anastomosis and focal velocity increase in the proximal graft from 112 to 307 cm/s, a 2.7 x step up. The remainder of the bypass graft is patent with no identifiable stenosis. Decrease in velocity at the proximal anastomosis (RRV=855 cm/s) compared to previous exam (AWJ=602 cm/s) on 11-19-14. Similar focal velocity step [...] unspecified documented in this encounter Care Teams Concrete Mason Relationship Specialty Start Date End Date Shirley Yu MD [address] [place] [address] PCP - General 11/19/14 documented as of this encounter
--- OUTSIDE RECORDS SUMMARY | 2023-12-13 18:31 | XMS_ITS | Encounter Summary ---
Author Organization [facility] [place] [address] Care Team Providers Care Retail Grocer Name Role Phone Shirley Yu MD Primary Care Provider [phone] Reason for Visit * Reason Comments Diabetes Encounter Details Date Type Department Care Team (Late st Contact Info) Description 10/14/2014 1:30 PM EDT Office [place] [address] Lluvia Oropeza LEAD SPRINKLER [facility] [place] [address] Type I (juvenile type) diabetes mellitus with renal manifestations, uncontrolled Discharge Disposition: Home Social History Tobacco Use [...] Sign Reading Time Taken Comments Blood Pressure 139/53 10/14/2014 2:17 PM EDT Pulse 69 10/14/2014 2:17 PM EDT Temperature - - Respiratory Rate - - Oxygen Saturation - - Inhaled Oxygen Concentration - - Weight 105.6 kg (232 lb 12.8 oz) 10/14/2014 2:17 PM EDT Height 168.8 cm (5' 6.46) 10/14/2014 2:17 PM ED T Body Mass Index 37.06 10/14/2014 2:17 PM EDT documented in this encounter Patient Instructions * Patient Instructions* Lluvia Oropeza APRN - 10/14/2014 2:51 PM EDT [employer] compression stocking [place] [facility] cotton Added basal at 4AM 1.45 Lowered basal at 6:30 to 1.35 Lowered target to 115 Call vascular to schedule (6 month) follow-up appointment! Send for 25 year medal!! documented in this encounter Progress Notes * Lluvia Oropeza APRN - 10/14/2014 3:50 PM EDT DATE OF VISIT: 10/14/2014. REASON FOR VISIT: Follow up type 1 DM in poor overall control with complications of retinopathy and nephropathy. BRIEF HISTORY: Previous visit to Endocrinology 03/04/2013. States she seems to have fallen through the cracks for follow up appointments. Also, here for follow up hypothyroidism, hyperlipidemia, sleep apnea, obesity. Date of diagnosis of diabetes 1978 at age 15. DIABETES REGIMEN: Revel 523 MiniMed pump. Basal rates; 12 a.m. 1.4, 6:30 1.4, 9 1.45, 12:30 1.4, 16:30 1.5, 1800 1.45, 21:30 1.1. Insulin to carb 1:10. Sensitivity 30. Target glucose 95 to 120. Active insulin four hours. REVIEW OF SYSTEMS: Depression and Mood: Takes Celexa. States her lower leg swelling and feet swelling is bothering her. Eyes: Followed closely by Dr. Vega. She will call Dr. Szymanski in [facility] for her annual appointment. No recent headaches or chest pain or shortness of breath. No recent GI symptoms. Appetite is good. Sleep pattern is usually okay. Extremities: Lower leg swelling and feet swelling that is uncomfortable. Has had vascular surgery, is due for a follow up appointment to be scheduled in Vascular clinic. HABITS: Quit smoking in August. States she is still fighting the cravings. PHYSICAL EXAM: Appearance: She appears in good health. She is overweight, 232 pounds. Blood pressure 139/53. Eyes: No retinopathy with green light exam. Scar is noted with green light exam. Neck: No thyromegaly or lymphadenopathy. Heart: Regular rate and rhythm. No murmurs. Lungs: Clear to auscultation. Feet: Skin is normal. Pulses are normal. Neuro: Normal sensation to 10 g of pressure. Has some swelling mid calf distally. Hemoglobin A1c 8.5%. IMPRESSION AND PLAN: Diabetes mellitus type 1 with complications and widely fluctuating glucose levels. Reviewed glucose levels. Will add 4 a.m. basal of 1.45. Will lower basal at 6:30 to 1.35. Will change target to 115. Has appointment later this afternoon with RONNIE JOHNSON. Congratulated patient with tobacco use cessation. Telephone call to Nephrology, fortunately appointment was able to be made for tomorrow. FLUME WORKER is wondering if the patient can lower the dose of the Norvasc, which sometimes can be the cause of some edema, but may need to adjust other antihypertensive medications. Also, telephone call to vascular clinic, but not able to make appointment today. Advised the patient that she is overdue for an appointment for follow up in Vascular and she agrees to call to schedule. Return to office in three months. Will check hemoglobin A1c. Gave the patient a copy of her lab results today and reviewed them with her. This was a 43-minute office visit with 42 minutes spent counseling vflr-ks-zofb with patient in the management of glucose levels, reviewing prevention and treatment of hypoglycemia, coordinating future appointments, and congratulating her with tobacco cessation efforts. Recent Results (from the past 72 hour(s)) HEMOGLOBIN A1C Result Value Ref Range Hemoglobin A1C 8.5 (*) 4.3 - 5.6 % Est Avg Gluc 197 CREATININE Result Value Ref Range Creatinine 1.60 (*) 0.70 - 1.20 mg/dL Estimated GFR 33 (*) >=60 TSH Result Value Ref Range TSH 2.42 0.27 - 4.20 mcIU/mL HDL/CHOL PROFILE Result Value Ref Range Chol, Total 160 <=199 mg/dL HDL 78 >=40 mg/dL Chol/HDL Ratio 2.1 LDL CHOLESTEROL, DIRECT Result Value Ref Range LDL Chol Direct 77 <=99 mg/dL documented in this encounter Plan of Treatment Upcoming Encounters Date Type Department Care Team (Late st Contact Info) Description 12/19/2023 1:00 PM EDT Tech [place] [address] Marguerite Macias 12/19/2023 3:00 PM EDT Office Visit [place] [phone] Gardenia Golden APRN [facility] [place] [address] 01/29/2024 1:[address] [place] [address] César Escobar MD [facility] [place] [address] 01/29/2024 2:30 PM EDT Office [place] [address] César Escobar MD [facility] [place] [address] documented as of this encounter Procedures Procedure Name Priority Date/Time Associated Diagnosis Comments CREATININE Routine 10/14/2014 1:37 PM EDT Type I (juvenile type) diabetes mellitus with renal manifestations, uncontrolled TSH Routine 10/14/2014 1:37 PM EDT Type I (juvenile type) diabetes mellitus with renal manifestations, uncontrolled LDL CHOLESTEROL, DIRECT Routine 10/14/2014 1:37 PM EDT Type I (juvenile type) diabetes mellitus with renal manifestations, uncontrolled HDL/CHOL PROFILE Routine 10/14/2014 1:37 PM EDT Type I (juvenile type) diabetes mellitus with renal manifestations, uncontrolled HEMOGLOBIN A1C Routine 10/14/2014 1:37 PM EDT Type I (juvenile type) diabetes mellitus with renal manifestations, uncontrolled documented in this encounter Results * (ABNORMAL) Hemoglobin A1c (02/18/2015 10:11 AM EST) Hemoglobin A1c 8.6(H) 4.3 - 5.6 % [facility] Comment: Reference Range: 4.3 - 5.6% 5.7 - 6.4% - Increased Risk of Developing Diabetes Mellitus >= 6.5% - Consistent with diagnosis of Diabetes Mellitus In the absence of hyperglycemia (i.e. plasma glucose > 200 mg/dL) or classic symptoms of hyperglycemia a repeat measurement of HbA1c should be performed on a separate sample to confirm the diagnosis. Diagnosis and Classification of Diabetes Mellitus, Diabetes Care 2013; 36: Suppl. 1, A97-25 Estimated Average Glucose 200 mg/dL [facility] Comment: eAG equivalents for HbA1c percentages: HbA1c(%) ?eAG(mg/dL) 6.0 ?126 6.5 ?140 7.0 ?154 7.5 ?169 8.0 ?183 8.5 ?197 9.0 ?212 9.5 ?226 10.0 ? 240 Limitations: The eAG calculation has not been validated on women, individuals below 18 years old and above 70 years old, and individuals with hemoglobinopathies. Additional resources are available on the ADA website: http://Geno.com/DHMCadacalc Chandra WELLS, Nikky Jiang, Quinn R, et al. ??Translating the A1C assay into estimated average glucose values. ??Diabetes Care 2008:31(8):6377-3196. Blood specimen (specimen) 02/18/2015 10:11 AM EST 02/18/2015 10:29 AM EST Narrative Resulting Agency Comment Spec In Lab Paulino Oakley MD CHEMISTRY ORDERABLES Performing Organization Address [facility] de Phone Number [facility] * LDL Cholesterol, Direct (10/14/2014 1:37 PM EDT) LDL Cholesterol, Direct 77 <=99 mg/dL [facility] Comment: The National Cholesterol Education Program (NCEP) has set the following guidelines for LDL Cholesterol: Reference range: ?? Optimal: ?<100 mg/dL ?? Near Optimal/Above Optimal: ?? 100-129 mg/dL ?? Borderline high: ?130-159 mg/dL ?? High: ? 160-189 mg/dL ?? Very high: ?>at=646 mg/dL SEPIDEH 2001: 285(19):2516-9653 Blood specimen (specimen) 10/14/2014 1:37 PM EDT 10/14/2014 1:43 PM EDT Narrative Resulting Agency Comment Spec In Lab Paulino Oakley MD CHEMISTRY ORDERABLES Performing Organization Address [facility] de Phone Number [facility] * HDL/Cholesterol Profile (10/14/2014 1:37 PM EDT) Cholesterol, Total 160 <=199 mg/dL [facility] Comment: Recommendations of the NCEP Adult Treatment Panel for the following risk cutoff thresholds for the [place] population: Desirable: <200 mg/dL Borderline High: 200-239 mg/dL High: > or = 240 mg/dL HDL Cholesterol 78 >=40 mg/dL [facility] Comment: Reference range: ??Low HDL: ?? < 40 mg/dL ??Normal: ?40-60 mg/dL ??Desirable: > 60 mg/dL SEPIDEH 2001; 285(19):2796-9696 Cholesterol/HDL Ratio 2.1 ratio [facility] Comment: A Cholesterol to HDL ratio below 4:1 is desirable. ??Studies suggest that increased CAD risk occurs at ratios above 5 for females and above 6 for men. ? [place] Heart Association ??(http://www.americanheart.org) ? Bianka Int Med, 1994; 121:641 ? AM J Med, 1998; 105(1A):48S Blood specimen (specimen) 10/14/2014 1:37 PM EDT 10/14/2014 1:43 PM EDT Narrative Resulting Agency Comment Spec In Lab Paulino Oakley MD CHEMISTRY ORDERABLES Performing Organization Address [facility] de Phone Number [facility] * TSH (10/14/2014 1:37 PM EDT) Thyroid Stimulating Hormone 2.42 0.27 - 4.20 mcIU/mL [facility] Blood specimen (specimen) 10/14/2014 1:37 PM EDT 10/14/2014 1:43 PM EDT Narrative Resulting Agency Comment Spec In Lab Paulino Oakley MD CHEMISTRY ORDERABLES Performing Organization Address [facility] de Phone Number [facility] * (ABNORMAL) Creatinine (10/14/2014 1:37 PM EDT) Creatinine 1.60(H) 0.70 - 1.20 mg/dL [facility] Comment: Please note that the pediatric reference intervals supplied above were not validated at [facility]. Results from pediatric patients should be interpreted in conjunction to the patient's age, height and muscle mass. Est Glomerular Filtration Rate 33(L) >=60 CERNER [...] the following links into your internet browser. [email or web address] [email or web address] Blood specimen (specimen) 10/14/2014 1:37 PM EDT 10/14/2014 1:43 PM EDT Narrative Resulting Agency Comment Spec In Lab Paulino Oakley MD CHEMISTRY ORDERABLES [facility] * (ABNORMAL) Hemoglobin A1c (10/14/2014 1:37 PM EDT) Hemoglobin A1c 8.5(H) 4.3 - 5.6 % [facility] Comment: Reference Range: 4.3 - 5.6% [...] Mellitus, Diabetes Care 2013; 36: Suppl. 1, S07-54 Estimated Average Glucose 197 mg/dL [facility] Comment: eAG equivalents for HbA1c percentages: HbA1c(%) ?eAG(mg/dL) 6.0 ?126 6.5 ?140 7.0 ?154 7.5 ?169 8.0 ?183 8.5 ?197 9.0 ?212 9.5 ?226 10.0 ? 240 Limitations: The eAG calculation has not been validated on women, individuals below 18 years old and above 70 years old, and individuals with hemoglobinopathies. Additional resources are available on the ADA website: http://Geno.[employer]/DHMCadacalc Chandra WELLS, Nikky J, Quinn R, et al. ??Translating the A1C assay into estimated average glucose values. ??Diabetes Care 2008:31(8):6499-7467. Blood specimen (specimen) 10/14/2014 1:37 PM EDT 10/14/2014 1:43 PM EDT Narrative Resulting Agency Comment Spec In Lab Paulino Oakley MD CHEMISTRY ORDERABLES Performing Organization Address City/State/[facility] Phone Number [facility] documented in this encounter Visit Diagnoses Diagnosis Type I (juvenile type) diabetes mellitus with renal manifestations, uncontrolled(250.43) Type I (juvenile type) diabetes mellitus with renal manifestations, uncontrolled documented in this encounter Care Teams Retail Grocer Relationship Specialty Start Date End Date Shirley Yu MD [address] [place] [address] PCP - General 03/02/10 10/19/14 documented as of this encounter
--- OUTSIDE RECORDS SUMMARY | 2023-12-13 18:32 | XMS_ITS | Encounter Summary ---
Author Organization [facility] [place] [address] Care Team Providers Care Yeast Washer Name Role Phone Shirley Yu MD Primary Care Provider [phone] Encounter Details Date Type Department Care Team (Late st Contact Info) Description 12/21/2012 Orders [place] [address] Lluvia Oropeza SILVICULTURE PROFESSOR [facility] [place] [address] Diabetes mellitus (Primary Dx) Social History Tobacco Use Types Packs/Day Years Used Date Smoking Tobacco: Some Days Cigarettes Last attempted to quit: 08/26/2011 Smokeless Tobacco: Never Alcohol Use Standard Drinks/Week [...] PM EDT Tech [place] [address] Marguerite Macias 12/19/2023 3:00 PM EDT Office [place] [address] Gardenia Golden APRN [facility] [place] [address] 01/29/2024 1:[address] [place] [place] [address] César Ecsobar MD [facility] [place] [address] 01/29/2024 2:30 PM EDT Office [place] [phone] César Escobar MD [facility] [place] [address] documented as of this encounter Visit Diagnoses Diagnosis Diabetes mellitus- Primary Type II or unspecified type diabetes mellitus without mention of complication, not stated as uncontrolled documented in this encounter Care Teams Yeast Washer Relationship Specialty Start Date End Date Shirley Yu MD [address] [place] [address] PCP - General 03/02/10 10/19/14 documented as of this encounter
--- OUTSIDE RECORDS SUMMARY | 2023-12-13 18:32 | XMS_ITS | Encounter Summary ---
Author Organization [facility] [place] [address] Care Team Providers Care Beaming Inspector Name Role Phone Shirley Yu MD Primary Care Provider [phone] Reason for Visit * Reason Comments Diabetes Encounter Details Date Type Department Care Team (Late st Contact Info) Description 03/04/2013 10:30 AM EST Office Visit [place] [address] Lluvia Oropeza APRN [facility] 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 REASON FOR VISIT: Followup type 1 DM, now in poor control with complication of retinopathy. Also, followup hypothyroidism, hyperlipidemia, sleep apnea, obesity. BRIEF HISTORY: She had appointment earlier this a.m. with RONNIE ENGLISH. DIABETES REGIMEN: Revel 523 MiniMed Pump. See basal rates from RNRONNIE note. Correction factor is 30. Dhiqywh-cd-zrbh 10:1. Target 95 to 120. Hypoglycemia, not recently. Carries treatment to manage them if they occur. She has not been using the sensor, but plans to resume using it. 24-HOUR MEAL PLAN: See RONNIE ENGLISH note. She states she has definitely been eating more carbs since her hivfpt-re-qxh has been living with them. PHYSICAL ACTIVITY: Not much recently. Prevention strategies are up-to-date. She had a flu vaccine this fall. Will check when her last dentist appointment was. REVIEW OF SYSTEMS: Depression and Mood: States she is starting to have less stress now. She did move out for three months, but now she and her are in counseling and things are starting to be better. Eyes: Followed closely by Dr. Vega. No recent headaches or chest pain or shortness of breath. No recent GI symptoms. Appetite is very good. Sleep Pattern: Uses CPAP mask. Extremities: History of vascular surgery right leg. PHYSICAL EXAMINATION: Appearance: She is large-framed. Pleasant and talkative with good eye contact. Weight 219 pounds. Same as it was in November. Blood pressure 151/76. Eyes: States she has cloudy vision from her right status post laser surgery. Scars noted with green light exam. Neck: No thyromegaly or lymphadenopathy. Heart: Regular rate and rhythm. No murmurs. Lungs are clear to auscultation. Feet: Skin is dry. Pulses are normal. Neuro: Normal sensation to 10 g of pressure. Hemoglobin A1c 8.4%; previous was 7.5%. IMPRESSION AND PLAN: Diabetes mellitus type 1, diagnosed at age 15. SBGM: Six times a day. DX CODE: 250.03. Encouraged the patient to follow through and resume using sensor. A1c was 7.5% when she was using the sensor. She is going to try to be more careful with her meal plan and she is going to try to fit in daily physical activity. She has a set of stairs that she is going to use as a workout listening to three songs in the morning and three songs in the afternoon. Hypothyroidism, she is at the correct hormone replacement dose. Blood pressure is close to goal, 150/76. Return to office in May. Will check hemoglobin A1c, microalbumin, and TSH. Microalbumin was high today. This was a 33-minute office visit with 32 minutes spent counseling sjmi-up-wryb with the patient in the management of glucose levels, reviewing a healthy meal plan with smaller portions for desired weight loss, and discussing the importance of daily physical activity. Recent Results (from the past 72 hour(s)) HEMOGLOBIN A1C Component Value Range Hemoglobin A1C 8.4 (*) 4.3 - 6.1 % Est Avg Gluc 194 MICROALBUMIN, URINE, RANDOM Component Value Range U Creatinine 83 U Ran Malb Conc 88.8 U Ran Malb Calc 107 documented in this encounter Plan of Treatment Upcoming Encounters Date Type Department Care Team (Late st Contact Info) Description 12/19/2023 1:00 PM EDT Tech [place] [address] Marguerite Macias 12/19/2023 3:00 PM EDT Office Visit [place] [address] Gardenia Golden APRN [facility] [place] [address] 01/29/2024 1:[address] [place] [address] César Escobar MD [facility] [place] [address] 01/29/2024 2:30 PM EDT Office Visit [place] [address] César Escobar MD [facility] [place] [address] documented as of this encounter Visit Diagnoses Diagnosis 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
--- OUTSIDE RECORDS SUMMARY | 2023-12-13 18:32 | XMS_ITS | Encounter Summary ---
Author Organization [facility] [place] [address] Care Team Providers Care Rug Setter [place] Name Role Phone Shirley Yu MD Primary Care Provider [phone] Encounter Details Date Type Department Care Team (Late st Contact Info) Description 05/25/2011 8:35 AM EST Office [place] [address] Ban Brown RVT Social History Tobacco Use Types Packs/Day Years Used Date Smoking Tobacco: Some Days Cigarettes Comments:4 sometimes Alcohol Use Standard Drinks/Week Comments Not Asked 0 (1 standard drink = 0.6 oz pur e alcohol) Sex and Gender Information Value Date Recorded Sex Assigned at Not on file Gender Identity Not on file Sexual Orientation Not on file documented as of this encounter Plan of Treatment Upcoming Encounters Date Type Department Care Team (Late st Contact Info) Description 12/19/2023 1:00 PM EDT Tech Visit [place] [address] Marguerite Macias 12/19/2023 3:00 PM EDT Office [place] [address] Gardenia Golden, HIDE AND SKIN CLASSER [facility] [place] [address] 01/29/2024 1:[address] [place] [place] [phone] César Escobar MD [facility] [place] [address] 01/29/2024 2:30 PM EDT Office [place] [address] César Escobar MD [facility] [place] [address] documented as of this encounter Visit Diagnoses Not on filedocumented in this encounter Care Teams Rug Setter [place] Relationship Specialty Start Date End Date Shirley Yu MD [address] [place] [address] PCP - General 03/02/10 10/19/14 documented as of this encounter
--- OUTSIDE RECORDS SUMMARY | 2023-12-13 18:32 | XMS_ITS | Encounter Summary ---
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; PAD (peripheral artery disease) Discharge Disposition: Home Social History Tobacco Use Types Packs/Day Years Used Date Smoking Tobacco: Former Cigarettes Smokeless Tobacco: Former Quit: 08/26/2011 Alcohol Use Standard Drinks/Week Comments No 0 (1 standard drink = 0.6 oz pur e alcohol) Sex and Gender Information Value Date Recorded Sex Assigned at Not on file Gender Identity Not on file Sexual Orientation Not on file documented as of this encounter Last Filed Vital Signs Vital Sign Reading Time Taken Comments Blood Pressure 152/70 07/24/2012 10:51 AM EDT ri ght arm Pulse 71 07/24/2012 10:48 AM EDT Temperature - - Respiratory Rate - - Oxygen Saturation 99% 07/24/2012 10:48 AM EDT Inhaled Oxygen Concentration - - Weight 100.2 kg (221 lb) 07/24/2012 10:48 AM EDT Height 168.9 cm (5' 6.5) 07/24/2012 10:48 AM ED T Body Mass Index 35.14 07/24/2012 10:48 AM EDT documented in this encounter Progress Notes * Alexys Petersen MD - 07/24/2012 11:00 AM EDT Subjective: Patient ID: Jennifer Bob is a 51 y.o. female. HPI 07/13/11 Jennifer Bob is a 50-year-old nondiabetic woman who is being followed for both carotid and lowerextremity arterial disease. Past medical history significant for left and right carotid endarterectomy in , with recurrent left stenosis that has been stable at approximately 60%. She has lit tle right carotid stenosis. She is status post left iliac stenting in 2005, and right common femoral to above-knee popliteal vein graft in 2008. Because the vein graft was small, we considered it disadvantaged, and therefore placed her on Coumadin which was changed to Pradaxa. She developed a mid graft stenosis that has been followed, with a peak systolic velocity approximately 330 cm/s which is not significantly changed over the past 2 years. Her LEFT lower extremity claudication has gotten worse with daily symptoms experienced during ambulation around the house. She had CTA last year which showed L iliac in stent stenosis, and prox vein graft stenosis, which we decided to manage conservati vely. She denies rest pain, non healing foot ulcers. She denies WILKINSON, VC, dizziness, numbness/tingling of the hands or feet. She stopped smoking completely 4 mo ago Interval History since 07/13/11: Slight worsening in bilateral LE claudication. She was able to walk into the clinic from the parking lot last year without rest. This year, she had to stop. She quit smoking 4 months ago. She was started on losartan and HCTZ since she was last here. Vascular History: Denies AAA, ulceration or rest pain. No history of clotting. Denies DM, HTN Patient Active Problem List Diagnoses Code ??? 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 Intermittent claudication 443.9A ??? PAD (peripheral artery disease) 447.9DK ??? 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 Carotid stenosis 433.10Z Current Outpatient Prescriptions on File Prior to Visit Medication Sig Dispense Refill ??? losartan-hydrochlorothiazide (HYZAAR) 100-25 mg per tablet Take 1 tablet by mouth daily. ??? diaZEPam (VALIUM) 5 mg tablet Take 1 tablet by mouth for 5 doses. One tablet to be taken after arrival at [facility] tablet 0 ??? OXYcodone-acetaminophen (PERCOCET) 5-325 mg per tablet Take 1 tablet by mouth every 6 hours as needed for Pain for 5 doses. 5 tablet 0 ??? magnesium citrate Soln solution Take by mouth. ??? Magnesium 250 mg Tab Take by mouth daily. ??? aspirin 81 mg EC tablet Take 81 mg by mouth daily. ??? citalopram (CELEXA) 20 mg tablet Take 20 mg by mouth daily. ??? levothyroxine (SYNTHROID) 100 mcg tablet Take 100 mcg by mouth daily. ??? simvastatin (ZOCOR) 40 mg tablet Take 40 mg by mouth nightly. ??? dabigatran (PRADAXA) 150 mg capsule Take 150 mg by mouth 2 times daily. ??? insulin lispro (HUMALOG) 100 unit/mL injection Inject subcutaneously See Admin Instructions. Via insulin pump Review of Systems Constitutional: Negative. HENT: Negative. Eyes: Negative. Respiratory: Negative. Cardiovascular: Negative. Gastrointestinal: Negative. Genitourinary: Negative. Musculoskeletal: Negative. Skin: Negative. Neurological: Negative. Hematological: Negative. Psychiatric/Behavioral: Negative. Objective: Physical Exam Constitutional: She appears well-developed and well-nourished. HENT: Head: Normocephalic and atraumatic. Eyes: Conjunctivae and EOM are normal. Pupils are equal, round, and reactive to light. Cardiovascular: Normal rate, regular rhythm and normal heart sounds. Pulmonary/Chest: Breath sounds normal. Abdominal: Soft. Bowel sounds are normal. Musculoskeletal: Normal range of motion. Neurological: She is alert. Skin: Skin is warm. Psychiatric: She has a normal mood and affect. Vitals Last value Range last 24 hrs Temperature Heart Rate Heart Rate: 71 Heart Rate: [71] Blood Pressure BP: 152/70 mmHg (right arm) BP: (143-152)/(68-70) Respiratory Rate Resp: -- SpO2 SpO2: 99 % SpO2: [99 %] Vascular Pulse Exam R L Radial [2]/2 [2]/2 Femoral No palpable Faintly palpable Popliteal Not palpable Not palpable Doppler signal present in RLE graft CTA 07/13/11: Diffuse calcific aorto-iliac disease bilaterally, LEFT greater than RIGHT. The LEFT SANDI stent is patent with severe calcific stenosis in the proximal SANDI/SANDI stent. This is present in her prior scan in 2006. There is a stenosis of the SANDI just distal to the stent which has progressed. The LEFT MOLDER BENCH shows severe calcific disease which has progressed since her prior scan. The SFA is diffusely diseased with a long segment occlusion on the 2D CT reconstruction with distal reconstiution of the below knee poplitel artery and three vessel runoff. A long stenosis is noted in the proximal RIGHT bypass graft. 07/24/12 SHEFALI's Findings: Right Pressure (mmHg) SHEFALI Waveform TBI Brachial Artery 147 Dorsalis Pedis (Ankle) Artery 94 0.64 [place]has[place] Posterior Tibial (Ankle) Artery 87 0.59 [place]has[place] Great Toe 71 0.48 Left Pressure (mmHg) SHEFALI Waveform TBI Brachial Artery 148 Dorsalis Pedis (Ankle) Artery 66 0.45 [place]iphasic Posterior Tibial (Ankle) Artery 68 0.46 [place]has[place] Great Toe 40 0.27 Interpretation: RIGHT: Moderate lower extremity arterial occlusive disease. Significant deterioration in [employer] SHEFALI compared to previous exam done on 05/25/11, no significant change in DPA SHEFALI. LEFT: Moderately severe lower extremity arterial occlusive disease. Significant improvement in ABIs compared to previous exam 05/25/11, no significant change in toe index. Previous ABIs with change from previous value: Date RIGHT DP RIGHT PT RIGHT GR TOE LEFT DP LEFT PT LEFT GR TOE 0.93 0.93 ---- 0.64 0.66 ---- 0.88 (-0.05) 0.96 (+0.03) 0.62 0.44 (-0.20) 0.52 (-0.14) 0.38 0.97 (+0.09) 0.97 (+0.01) 0.65 (+0.03) 0.58 (+0.14) 0.62 (+0.10) 0.42 (+0.04) 0.91 (-0.06) 1.01 (+0.04) 0.72 (+0.07) 0.64 (+0.06) 0.69 (+0.07) 0.46 (+0.04) 0.93 (+0.02) 0.96 (-0.05) 0.61 (-0.11) 0.58 (-0.06) 0.61 (-0.08) 0.37 (-0.09) 0.86 (-0.07) 0.93 (-0.03) 0.68 (+0.07) 0.55 (-0.03) 0.63 (+0.02) 0.38 (+0.01) 0.59 (-0.27) 0.75 (-0.18) 0.58 (-0.10) 0.24 (-0.31) 0.29 (-0.34) 0.15 (-0.23) Current Exam 0.64 (+0.05) 0.59 (-0.16) 0.48 (-0.10) 0.45 (+0.21) 0.46 (+0.17) 0.27 (+0.12) 07/24/12 right graft duplex Findings: Right PSV (cm/s) EDV (cm/s) Common Femoral Artery, Proximal 415 50 Inflow Anastomosis 262 41 Graft, Proximal 221 23 Proximal Thigh Lower Limb Graft 132 12 Popliteal Artery, Above Knee 66 7 Graft, Distal 57 8 Outflow Anastomosis 55 6 Interpretation: RIGHT Significant stenosis of the proximal to mid MOLDER BENCH with PSVs of 415cm/sec. Patent right lower extremity MOLDER BENCH - ak Pop bypass graft with elevated PSVs in the proximal anastomosis and proximal graft of >200cm/sec. Assessment and Plan: A/P: Jennifer Bob is a 51 y.o. female seen in clinic today for stable LLE claudication, progression of LEFT iliac, common femoral, SFA atherosclerotic disease from her imaging in 2006. She has hada subtle worsening of her symptoms and a worsening RLE duplex with rising PSV's.. While her LLE HSEFALI's appear improved, this is most likely due to inaccurate last study which was lower than expected, so it only appears improved now. We need to better define her anatomy. The plan is to obtain an arteriogram in late August and decide on an intervention with that data. She recently had lab work done by her PCP that we will obtain prior to the angiogram. Vascular Staff: I saw and examined the patient, review the prior CT scan and current vascular laboratory studies. I agree with the above findings and plan. She would like us to perform the outpatientarteriogram and early September. We will do that to the left side and likely treat the left iliac stenoses, and potentially the right common femoral and graft stenosis depending on how these look on arteriography. Of note, the left common femoral artery appears adequate for puncture based on the last arteriogram, but there may be stenosis of the profunda, with an occluded SFA, so we will want to imagethat side during arteriography also. documented in this encounter Miscellaneous Notes * Addendum Note - Leslie Delgado RN - 07/24/2012 3:04 PM EDTAddended by: LESLIE DELGADO on: 07/24/2012 03:04 PM Modules accepted: Orders documented in this encounter Plan of Treatment Upcoming Encounters Date Type Department Care Team (Late st Contact Info) Description 12/19/2023 1:00 PM EDT Tech [place] [id number] Marguerite Macias 12/19/2023 3:00 PM EDT Office Visit [place] [phone] Gardenia Golden APRN [facility] [place] [address] 01/29/2024 1:[address] [place] [phone] César Escobar MD [facility] [place] [address] 01/29/2024 2:30 PM EDT Office Visit Thoracic Surgery at [facility] [place] [address] César Escobar MD [facility] [place] [address] documented as of this encounter Results * VS Angiogram/intervention (vascular) (09/11/2012 9:33 AM EDT) Anatomical Region Laterality Modality X-Ray Angiograph y 09/11/2012 9:33 AM EDT Narrative 09/17/2012 3:40 PM EDT Vascular Surgery Procedure Note Pre-procedure Dx: LEFT lower extremity claudication Post-procedure Dx: Same Procedure: 1. ?Percutaneous access LEFT MOLDER BENCH, ultimately to 6F destination sheath 2. ?Aortogram, WIGGINS LEFT pelvic arteriogram 3. ?LEFT EIA stent placement (8x60mm Everflex dilated to 7mm) 4. ?Aorta to LEFT EIA transcatheter pullback pressures 5. ?RIGHT MOLDER BENCH arteriogram 6. ?RIGHT MOLDER BENCH angioplasty (Milana 5x40mm to 6 elias) 7. ?Stationed RIGHT MOLDER BENCH to popliteal vein bypass angiogram 8. ?Proximal RIGHT bypass angioplasty (Milana 5x40mm to 6 elias) 9. ?LLE bolus sanna arteriogram 10. ??Mynx closure Surgeons: Joel Avendano Anesthesia: Conscious sedation, local 10 cc 1% lidocaine Heparin: 5000 units Ancef: Cleocin 300mg Protamine: none Fluoro Time: 14.1 min Contrast: Visipaque 65 cc Indications for the Procedure: Jennifer Bob is a 51 y.o. female seen in clinic today for stable LLE claudication, progression of LEFT iliac, common femoral, SFA atherosclerotic disease from her imaging in 2006. She has had a subtle worsening of her symptoms and a worsening RLE duplex with rising PSV's.. While her LLE SHEFALI's appear improved, this is most likely due to inaccurate last study which was lower than expected, so it only appears improved now. Plan stand LEFT, puncture LEFT for treatment of LEFT side iliac stenoses, and potentially the right common femoral and graft stenosis depending on how these look on arteriography. Findings: Aorta : 1. ?The aorta was noted to to be patent and free of disease 2. ?no AAA apparent Common Iliacs: 3. ?Right iliac was patent 4. ?Left iliac was patent, stenosis noted in distal previously placed stent The left external iliac artery artery was treated. This was a TASC A lesion with a 1 cm occlusion, 1 lesions, and a total treatment length of 5 cm. This was treated with Protege Everflex 8x60mm via a 6fr sheath. Additional treatment [was not required. Additional adjuncts [were not used. The final angioplasty/stent diameter was 7 mm. The final result was technically successful. Internal iliacs: 5. ?Right internal iliac was note to be patent 6. ?Left internal iliac was noted to be patent External iliacs/Common femoral: 7. ?Right external iliac was patent through the common femoral artery. There is narrowing in the RIGHT common femoral artery. The right [place] femoral artery artery was treated. This was a TASC A lesion with a 2 cm occlusion, 1 lesions, and a total treatment length of 4 cm. This was treated with Milana 5x40mm balloon via a 6 fr sheath. Additional treatment [was required with repeat angioplasty. Additional adjuncts [were not used. The final angioplasty/stent diameter was 5 mm. The final result was a was not technically successful with evidence of stable dissection at treatment area, briskly filling vessels distally. 8. ?Left external Iliac was patent through the common femoral artery SFA/Popliteal 9. ?Right femoral to popliteal bypass graft is widely patent 10. ??Left SFA was noted to have critical stenosis at its origin through to the mid thigh where it enlarges but still exhibits bulky calcific disease. This is TASC C lesion. The distal SFA appears disease free and is patent through to the below knee popliteal artery Tibial Vessels 11. ??Right Anterior Tibial is patent with flow to the DP. The TPT is patent. PT artery is patent with flow across the ankle to the foot. The peroneal artery is patent into the distal leg. 12. ??Left Anterior Tibial overlies bone and is not well visualized but appears patent with flow to the DP. The TPT is patent. PT artery is patent with flow across the ankle to the foot. The peroneal artery is patent into the distal leg. Technical Procedure: Patient was correctly identified in the pre-procedure holding area. After a discussion of the risks and benefits, operative consent was obtained. The patient was brought to the angio suite and placed supine upon the angio table. The patient was prepped and draped in the usual sterile fashion. Percutaneous access was secured to the LEFT common femoral artery via micropuncture technique under flouroscopic guidance. This was then up-sized to a 5F sheath over a J-wire. A flush catheter was placed via a J wire into the aorta. Aortography and bilateral pelvic angiography was undertaken with the above findings. The catheter was exchanged over wire for a Protege Everflex 8x60mm stent which was advanced across the distal iliac stent restenosis and successfully deployed. The stent catheter was then exchanged over wire for a Milana 7x40mm balloon and the stent dilated to 6 elias. Follow up arteriogram demonstrated no residual stenosis or dissection. Intra-arterial pullback pressure measurements were taken across the SANDI to the EIA artery through 4F NTA and demonstrated no pressure gradient with the aorta. We then went up and over to select the RIGHT MOLDER BENCH in an anterograde fashion using a J-wire and a mod-hook catheter. The RIGHT lower extremity was imaged in stationed fashion. Findings are as described above. The J -wire and flush catheter were next exchanged out for a platform consisting of .035 amplatz stiff wire, 6F destination sheath and 4F NTA, allowing selection of the RIGHT MOLDER BENCH and femoral bypass graft. The MOLDER BENCH and proximal bypass were then balloon angioplastied with a Milana 5x40mm balloon. Dissection noted in treated segment of MOLDER BENCH despite repeat angioplasty. Brisk distal filling of bypass and tibial runoff despite this finding. All catheters were then removed over a guidewire. Wires were removed and a Mynx device was deployed for closure with excellent result hemostatic control. Distal doppler signals intact bilaterally Dr. Avendano was present throughout. Continuous pulse oximetry and telemetry monitoring was conducted throughout the procedure with the assistance of a registered nurse. Complications: RIGHT common femoral artery dissection, not flow limiting Disposition: To Recovery, flat for 1 hour Duplex of RIGHT MOLDER BENCH in recovery Pletal Discharge home per angio recovery Follow up 1 month I was the attending physician supervising the resident in the above care and I was present with the resident for the entire procedure. I agree w above note. Pt may need L fem pop but will hope iliac stenosis Rx will be sufficient. Film and interpretation reviewed by the attending Procedure Note Mario Avendano MD - 09/17/2012 Vascular Surgery Procedure Note Pre-procedure Dx: LEFT lower extremity claudication Post-procedure Dx: Same Procedure: 1. Percutaneous access LEFT MOLDER BENCH, ultimately to 6F destinationsheath 2. Aortogram, WIGGINS LEFT pelvic arteriogram 3. LEFT EIA stent placement (8x60mm Everflex dilated to 7mm) 4. Aorta to LEFT EIA transcatheter pullback pressures 5. RIGHT MOLDER BENCH arteriogram 6. RIGHT MOLDER BENCH angioplasty (Milana 5x40mm to 6 elias) 7. Stationed RIGHT MOLDER BENCH to popliteal vein bypass angiogram 8. Proximal RIGHT bypass angioplasty (Milana 5x40mm to 6 elias) 9. LLE bolus sanna arteriogram 10. Mynx closure Surgeons: Joel Avendano Anesthesia: Conscious sedation, local 10 cc 1% lidocaine Heparin: 5000 units Ancef: Cleocin 300mg Protamine: none Fluoro Time: 14.1 min Contrast: Visipaque 65 cc Indications for the Procedure: Jennifer Bob is a 51 y.o. female seen in clinic today for stable LLE claudication, progression of LEFT iliac, common femoral, SFAatherosclerotic disease from her imaging in 2006. She has had a subtle worsening of her symptoms and a worsening RLE duplex with rising PSV's.. While her LLEABI's appear improved, this is most likely due to inaccurate last study whichwas lower than expected, so it only appears improved now. Plan stand LEFT,puncture LEFT for treatment of LEFT side iliac stenoses, and potentially the right common femoral and graft stenosis depending on how these look onarteriography. Findings: Aorta : 1. The aorta was noted to to be patent and free of disease 2. no AAA apparent Common Iliacs: 3. Right iliac was patent 4. Left iliac was patent, stenosis noted in distal previously placedstent The left external iliac artery artery was treated. This was a TASC Alesion with a 1 cm occlusion, 1 lesions, and a total treatment length of 5 cm.This was treated with Protege Everflex 8x60mm via a 6fr sheath. Additionaltreatment [was not required. Additional adjuncts [were not used. The final angioplasty/stent diameter was 7 mm. The final result was technically successful. Internal iliacs: 5. Right internal iliac was note to be patent 6. Left internal iliac was noted to be patent External iliacs/Common femoral: 7. Right external iliac was patent through the common femoral artery. There is narrowing in the RIGHT common femoral artery. The right [place] femoral artery artery was treated. This was a TASC Alesion with a 2 cm occlusion, 1 lesions, and a total treatment length of 4 cm.This was treated with Milana 5x40mm balloon via a 6 fr sheath. Additionaltreatment [was required with repeat angioplasty. Additional adjuncts [were not used.The final angioplasty/stent diameter was 5 mm. The final result was a was not technically successful with evidence of stable dissection at treatmentarea, briskly filling vessels distally. 8. Left external Iliac was patent through the common femoral artery SFA/Popliteal 9. Right femoral to popliteal bypass graft is widely patent 10. Left SFA was noted to have critical stenosis at its origin through tothe mid thigh where it enlarges but still exhibits bulky calcific disease.This is TASC C lesion. The distal SFA appears disease free and is patent throughto the below knee popliteal artery Tibial Vessels 11. Right Anterior Tibial is patent with flow to the DP. The TPT ispatent. PT artery is patent with flow across the ankle to the foot. The peronealartery is patent into the distal leg. 12. Left Anterior Tibial overlies bone and is not well visualized butappears patent with flow to the DP. The TPT is patent. PT artery is patent withflow across the ankle to the foot. The peroneal artery is patent into thedistal leg. Technical Procedure: Patient was correctly identified in the pre-procedure holding area. Aftera discussion of the risks and benefits, operative consent was obtained. The patient was brought to the angio suite and placed supine upon the angiotable. The patient was prepped and draped in the usual sterile fashion.Percutaneous access was secured to the LEFT common femoral artery via micropuncture technique under flouroscopic guidance. This was then up-sized to a 5Fsheath over a J-wire. A flush catheter was placed via a J wire into the aorta. Aortography and bilateral pelvic angiography was undertaken with the above findings. The catheter was exchanged over wire for a Protege [id number] stent which was advanced across the distal iliac stent restenosis and successfully deployed. The stent catheter was then exchanged over wire fora Milana 7x40mm balloon and the stent dilated to 6 elias. Follow uparteriogram demonstrated no residual stenosis or dissection. Intra-arterial pullback pressure measurements were taken across the SANDI to the EIA artery byiagie1M NTA and demonstrated no pressure gradient with the aorta. We then went up and over to select the RIGHT MOLDER BENCH in an anterograde fashion using a J-wire and a mod-hook catheter. The RIGHT lower extremity wasimaged in stationed fashion. Findings are as described above. The J -wire and flush catheter were next exchanged out for a platform consisting of .035 amplatz stiff wire, 6F destination sheath and 4F NTA, allowing selection of theRIGHT MOLDER BENCH and femoral bypass graft. The MOLDER BENCH and proximal bypass were thenballoon angioplastied with a Milana 5x40mm balloon. Dissection noted in treated segment of MOLDER BENCH despite repeat angioplasty. Brisk distal filling of bypassand tibial runoff despite this finding. All catheters were then removed over a guidewire. Wires were removed and a Mynx device was deployed for closurewith excellent result hemostatic control. Distal doppler signals intactbilaterally Dr. Avendano was present throughout. Continuous pulse oximetry andtelemetry monitoring was conducted throughout the procedure with the assistance of a registered nurse. Complications: RIGHT common femoral artery dissection, not flow limiting Disposition: To Recovery, flat for 1 hour Duplex of RIGHT MOLDER BENCH in recovery Pletal Discharge home per angio recovery Follow up 1 month I was the attending physician supervising the resident in the above careand I was present with the resident for the entire procedure. I agree w abovenote. Pt may need L fem pop but will hope iliac stenosis Rx will be sufficient. 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
--- OUTSIDE RECORDS SUMMARY | 2023-12-13 18:32 | XMS_ITS | Encounter Summary ---
Author Organization [facility] [place] [address] Care Team Providers Care Retail Operations Manager Name Role Phone Shirley Yu MD Primary Care Provider [phone] Reason for Visit * Reason Comments Follow-up Encounter Details Date Type Department Care Team (Late st Contact Info) Description 10/10/2012 4:00 PM EDT Office Visit [place] [address] Mario Avendano MD [facility] [place] [address] Intermittent claudication (Primary Dx); PAD (peripheral artery disease); Carotid stenosis Discharge Disposition: Home Social History Tobacco Use [...] Sign Reading Time Taken Comments Blood Pressure 127/62 10/10/2012 3:26 PM EDT Pulse 90 10/10/2012 3:26 PM EDT Temperature - - Respiratory Rate - - Oxygen Saturation - - Inhaled Oxygen Concentration - - Weight - - Height - - Body Mass Index - - documented in this encounter Progress Notes * Mario Avendano MD - 10/10/2012 4:24 PM EDT Jennifer Bob is a 50-year-old nondiabetic woman who is being followed for both carotid and lowerextremity arterial disease. She is status post left [...] significantly changed over the past 2 years. Although she has tried am unable to stop smoking several times, she started smoking again this pastyear. She is seen today for followup of her recent outpatient interventional therapy. Her claudication had been worsening, and CTA suggested left external iliac stenosis as well as right common femoral stenosis. We stented her left external iliac artery and balloon angioplasty the right common femoral artery. Since then she believes that her claudication is improved in both legs. It is still present but not nearly as disabling, and she is comfortable with conservative management at this point. We also placed her on cilostazol at the time of that treatment to try to reduce restenosis. On examination he remains obese so it is difficult to evaluate her pulses accurately. However her femoral pulses are palpable and appear symmetrical to me. I cannot palpate her distal pulses today. Her SHEFALI is 0.65 of the right and 0.44 on the left. These are not significantly changed from prior to treatment. However the right femoral peak systolic velocity is 282 cm/s which represents a significant reduction from the pre-treatment and immediately post treatment values which were in the 4-500 range. In order to improve her left leg circulation she would need a femoral-popliteal bypass. Her bypass graft on the right is functioning and did not have significant stenoses at the time of arteriography. We will continue conservative management at this point and recheck both legs in 6 months. documented in this encounter Plan of Treatment Upcoming Encounters Date Type Department Care Team (Late st Contact Info) Description 12/19/2023 1:00 PM EDT Tech [place] [phone] Marguerite Macias 12/19/2023 3:00 PM EDT Office Visit [place] [address] aGrdenia Golden, PARTS BACK COUNTER MAN [facility] [place] [address] 01/29/2024 1:[address] [place] [address] César Escobar MD [facility] [place] [address] 01/29/2024 2:30 PM EDT Office Visit [place] [address] César Escobar MD [facility] [place] [address] documented as of this encounter Visit Diagnoses Diagnosis Intermittent claudication- Primary Peripheral vascular disease, unspecified PAD (peripheral artery disease) Peripheral vascular disease, unspecified Carotid stenosis Occlusion and stenosis of carotid artery without mention of cerebral infarction documented in this encounter Care Teams Retail Operations Manager Relationship Specialty Start Date End Date Shirley Yu MD [address] [place] [address] PCP - General 03/02/10 10/19/14 documented as of this encounter
--- OUTSIDE RECORDS SUMMARY | 2023-12-13 18:32 | XMS_ITS | Encounter Summary ---
[place] [address] Care Team Providers Care Accounting Software Specialist Name Role Phone Shirley Yu MD Primary Care Provider [phone] Encounter Details Date Type Department Care Team (Late st Contact Info) Description 10/10/2012 Orders [place] [address] Nena Seymour, TAMEKA PVD (peripheral vascular disease) (Primary Dx) Social History Tobacco Use Types [...] PM EDT Tech [place] [address] Marguerite Macias 12/19/2023 3:00 PM EDT Office [place] [address] Gardenia Golden, LADARIUS [facility] [place] [address] 01/29/2024 1:[address] [place] [phone] César Escobar MD [facility] [place] [address] 01/29/2024 2:30 PM EDT Office [place] [address] César Escobar MD [facility] [place] [address] documented as of this encounter Visit Diagnoses Diagnosis PVD (peripheral vascular disease)- Primary Peripheral vascular disease, unspecified documented in this encounter Care Teams Accounting Software Specialist Relationship Specialty Start Date End Date Shirley Yu MD [address] [place] [id number] PCP - General 03/02/10 10/19/14 documented as of this encounter
--- OUTSIDE RECORDS SUMMARY | 2023-12-13 18:32 | XMS_ITS | Encounter Summary ---
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 insulin lispro (HUMALOG) 100 unit/mL injection Inject 55-60 Units subcutaneously continuous. Via insulin pump citalopram (CELEXA) 20 mg tablet Take 20 mg by mouth daily. 01/02/2017 levothyroxine (SYNTHROID) 100 mcg tablet Take 100 mcg by mouth daily. 10/14/2014 simvastatin (ZOCOR) 40 mg tablet Take 40 mg by mouth nightly. 01/02/2017 dabigatran (PRADAXA) 150 mg capsule Take 150 mg by mouth 2 times daily. 08/24/2015 losartan (COZAAR) 50 mg tablet Take 50 mg by mouth daily. 06/05/2012 documented as of this encounter Miscellaneous Notes * Miscellaneous - Provider, Scanning - 07/18/2011 10:16 AM EDT documented in this encounter Plan of Treatment Upcoming Encounters Date Type Department Care Team (Late st Contact Info) Description 12/19/2023 1:00 PM EDT Tech Visit [place] [phone] Marguerite Macias 12/19/2023 3:00 PM EDT Office [place] [address] Gardenia Golden, LADARIUS [facility] [place] [place] [address] 01/29/2024 1:[address] [place] [address] César Escobar MD [facility] [place] [address] 01/29/2024 2:30 PM EDT Office [place] [phone] César Escobar MD [facility] [place] [address] documented as of this encounter Procedures Procedure Name Priority Date/Time Associated Diagnosis Comments CT ANGIOGRAM AORTA LOWER EXTREMITY RUNOFF Routine 07/13/2011 11:10 AM EDT Intermittent claudication PAD (peripheral artery disease) 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 3 dimensional reformatted images reconstructed ?? Findings CTA abdomen: ?? The celiac trunk and SMA are patent. Single renal arteries are seen to each kidney. ??The left renal artery is widely patent. On the right renal artery there is focal moderate to severe stenosis at the origin. The lumen of the infrarenal abdominal aorta is truncated, measuring 11-12 mm in greatest diameter. ??Multi focal calcified and noncalcified plaque is noted. At the origin of the inferior mesenteric artery, focal calcified plaque is noted. Distal to this the JIMI appears patent. No abdominal aortic aneurysm is noted. ?? CTA right side: ?? Multifocal calcified and noncalcified plaque is seen throughout the vascular tree. Moderate stenosis is seen in the proximal aspect of the common iliac artery. Focal severe stenosis is seen in the proximal aspect of the internal iliac artery. The external iliac artery is widely patent. The common femoral artery is truncated but patent. The profunda femoral is widely patent. Severe focal stenosis is seen in the proximal aspect of the superficial femoral artery. Distal to this stenosis, a superficial femoral artery to popliteal artery bypass graft is noted and is patent. The miami superficial femoral artery is occluded. The popliteal artery is widely patent. There is a patent 3 vessel below knee runoff to the ankle. ?? CTA ??left side: ?? Focal severe to critical stenosis is seen in the proximal common iliac artery, proximal to a common iliac artery stent. A patent stent is noted in the mid and distal common iliac artery. . The distal tip of the common iliac artery is focally severely stenotic, distal to the stent. Critical stenosis is seen in the proximal aspect of the internal iliac artery. The external iliac artery is patent. The common femoral artery is patent. The profunda femoris is patent. Critical stenosis seen in the proximal superficial femoral artery. Distal to this critical stenosis, the superficial femoral artery is occluded. There is intermittent reconstitution of the superficial femoral artery with multiple areas of occlusion. The distal SFA is reconstituted by collateral vessels. The popliteal artery is patent. There is a patent 3 vessel below knee runoff to the ankle. ?? Nonvascular CT findings: A calcified granuloma is seen in the left lower lobe. ?? Impression On the right, focal severe stenosis is seen in the proximal internal iliac artery. ?? On the right, a superficial femoral artery to popliteal artery bypass is patent. ?? Bilateral patent below knee runoff to the ankle. ?? Multi focal occlusion is seen in the left superficial femoral artery Procedure Note Rambo Montano MD - 07/13/[address] Aortic / Lower Extremity Runoff With Contrast Clinical History CTA-CLAUDICATION RIGHT FEM-POP VG LEFT ILIAC STENT Comparison NONE Technique 180 cc Omnipaque 350 utilized for intravenous contrast. 3 dimensional reformatted images reconstructed Findings CTA abdomen: The celiac trunk and SMA are patent. Single renal arteries are seen toeach kidney. The left renal artery is widely patent. On the right renal artery there is focal moderate to severe stenosis at the origin. The lumen of the infrarenal abdominal aorta is truncated, measuring 11-12 mm in greatest diameter. Multi focal calcified and noncalcified plaque is noted. At the origin of the inferior mesenteric artery, focal calcified plaque is noted. Distal to this the JIMI appears patent. No abdominal aortic aneurysm isnoted. CTA right side: Multifocal calcified and noncalcified plaque is seen throughout thevascular tree. Moderate stenosis is seen in the proximal aspect of the common iliac artery. Focal severe stenosis is seen in the proximal aspect of theinternal iliac artery. The external iliac artery is widely patent. The commonfemoral artery is truncated but patent. The profunda femoral is widely patent.Severe focal stenosis is seen in the proximal aspect of the superficial femoral artery. Distal to this stenosis, a superficial femoral artery to popliteal artery bypass graft is noted and is patent. The miami superficial femoral artery is occluded. The popliteal artery is widely patent. There is apatent 3 vessel below knee runoff to the ankle. CTA left side: Focal severe to critical stenosis is seen in the proximal common iliacartery, proximal to a common iliac artery stent. A patent stent is noted in themid and distal common iliac artery. . The distal tip of the common iliac artery is focally severely stenotic, distal to the stent. Critical stenosis is seenin the proximal aspect of the internal iliac artery. The external iliacartery is patent. The common femoral artery is patent. The profunda femoris ispatent. Critical stenosis seen in the proximal superficial femoral artery. Distalto this critical stenosis, the superficial femoral artery is occluded. Thereis intermittent reconstitution of the superficial femoral artery withmultiple areas of occlusion. The distal SFA is reconstituted by collateral vessels.The popliteal artery is patent. There is a patent 3 vessel below knee runoffto the ankle. Nonvascular CT findings: A calcified granuloma is seen in the left lowerlobe. Impression On the right, focal severe stenosis is seen in the proximal internal iliac artery. On the right, a superficial femoral artery to popliteal artery bypass is patent. Bilateral patent below knee runoff to the ankle. 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 documented in this encounter Administered Medications Inactive Administered Medications - up to 3 most recent administrations Medication Order MAR Action Action Date Dose Rate Site iohexol (OMNIPAQUE) 350 mg/mL injection 63,000 mg 63,000 mg (180 mL), Intravenous, ONCE PRN, 1 dose, Starting on Mon07/13/11 at 1048, Until Mon07/13/11 at 1048, Per Protocol, Routine Given 07/13/2011 10:48 AM EDT 63,000 mg documented in this encounter Care Teams Melt House Supervisor Relationship Specialty Start Date End Date Shirley Yu MD [address] [place] [address] PCP - General 03/02/10 10/19/14 documented as of this encounter
--- OUTSIDE RECORDS SUMMARY | 2023-12-13 18:32 | XMS_ITS | Encounter Summary ---
Author Organization [facility] [place] [address] Care Team Providers Care Arc Welding Machine Operator Name Role Phone Shirley Yu MD Primary Care Provider [phone] Reason for Visit * Reason Comments Diabetes Encounter Details Date Type Department Care Team (Late st Contact Info) Description 07/31/2012 10:30 AM EDT Office [place] [address] Lluvia Oropeza DRAWING KILN SUPERVISOR [facility] [address] 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, uncontrolled (Primary Dx) Discharge Disposition: Home Social History Tobacco Use Types Packs/Day Years Used Date Smoking Tobacco: Former Cigarettes Q uit: 08/26/2011 Smokeless Tobacco: Never Alcohol Use Standard Drinks/Week Comments No 0 (1 standard drink = 0.6 oz pur e alcohol) Sex and Gender Information Value Date Recorded Sex Assigned at Not on file Gender Identity Not on file Sexual Orientation Not on file documented as of this encounter Last Filed Vital Signs Vital Sign Reading Time Taken Comments Blood Pressure 132/59 07/31/2012 10:33 AM EDT Pulse 73 07/31/2012 10:33 AM EDT Temperature - - Respiratory Rate - - Oxygen Saturation - - Inhaled Oxygen Concentration - - Weight 101.1 kg (222 lb 12.8 oz) 2012 10:33 AM EDT Height - - Body Mass Index 35.42 07/24/2012 10:48 AM EDT documented in this encounter Patient Instructions * Patient Instructions* Lluvia Oropeza APRN - 07/31/2012 11:19 AM EDT Lowered CF to 30 Lowered target to 110 Bring meter to Aug appointment documented in this encounter Progress Notes * Lluvia Oropeza APRN - 07/31/2012 12:08 PM EDT DATE OF VISIT: 07/31/2012 REASON FOR VISIT: New patient to endocrinology for type 1 DM in poor control. BRIEF HISTORY: Presents and states her hemoglobin A1c was 9.5% and it is usually closer to 8.0%. DATE OF DIAGNOSIS OF DIABETES: At age 15. COMPLICATIONS: Retinopathy, has had laser both eyes. Has had bypass in her right leg and states she will most likely need it in her left leg soon. Also, here for hypothyroidism and hyperlipidemia. SBGM: Six times a day. DIABETES REGIMEN: MiniMed insulin pump. Uses Humalog. Basal rates 12 a.m. 1.4, 6:30 a.m. 1.3, 9 a.m. 1.35, 12:30 1.35, 4:30 1.35, and 6 p.m. 1.35. Total basal 32.6. Total daily doses range from 47.1 to 61.1. Target glucose 80 to 120. Axeuarv-oe-yqhg 1:10 and sensitivity factor 35. 24-HOUR MEAL PLAN: Breakfast is an Croatian muffin with some peanut butter or [employer] toast with jelly. Lunch is a sandwich with fruit. 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 PHYSICAL ACTIVITY: Not much recently because of poor circulation symptoms. REVIEW OF SYSTEMS: Depression and Mood: Discusses how discouraging living with diabetes can be and how much work it takes. Sts she is frustrated that she has tried everything to lose weight and has not been successful. Eyes: Followed closely by turbine engine assembler. Has floaters in her left. No recent headaches. No chest pain. No shortness of breath. GI Symptoms: She states she always feels full and prefers to eat small amounts often rather than a large meal. Sleep Pattern: Has sleep apnea. Uses CPAP mask. Extremity: Has some discomfort in her legs after walking and states she has restless legs during sleep. SOCIAL HISTORY: Lives at home with her . Has grown children and grandsons. FAMILY HISTORY: There is no family history of diabetes. PHYSICAL EXAMINATION: Appearance: She is large framed. Weight 222 pounds. Blood pressure 132/59. Eyes: Scars noted with green light exam. Neck: No thyromegaly or lymphadenopathy. Heart: Regular rate and rhythm. No murmurs. Lungs are clear to auscultation. Feet: Skin is dry. Pulses are normal. Neuro: Normal sensation to 10 g of pressure. No labs were done today. The patient states hemoglobin A1c was 9.5% approximately two weeks ago. States LDL is definitely under 100, not certain if it is under 70. IMPRESSION AND PLAN: Diabetes mellitus type 1 with complications, in poor control. Will lower sensitivity factor to 30 and will lower target to 110. Advised appointment with RONNIE ENGLISH. Plans to continue appointments in endocrinology until hemoglobin A1c is under 8.0%. She has appointment scheduled with primary care physician. Return to endocrinology in November. Plans to have lab draw at primary care physician office for hemoglobin A1c, HDL, DLDL, TSH, microalbumin, BMP, or CMP. This was a 38-minute office visit with 37 minutes spent counseling [id number] with the patient in the management of glucose levels and lowering her sensitivity factor and her glucose target. She states when she first changes her pump site, she gets better glucose levels and then when it is time to change it again, the glucose levels are not as close to target. She feels that changing her site worsens her glucose control, but she does change her site every three days. Informed her of the availability of CGMS and she will contact RONNIE ENGLISH if she wants to schedule a MiniMed Sensor study. I encouraged her to consider doing that if she is not able to lower hemoglobin A1 closer to 7.5% without hypoglycemia. Also, discussed the possibility of gastroparesis and a delayed gastric emptying. She will consider if she wants to schedule a gastric emptying study. documented in this encounter Plan of Treatment Upcoming Encounters Date Type Department Care Team (Late st Contact Info) Description 12/19/2023 1:00 PM EDT Tech Visit [place] [address] Marguerite Macias 12/19/2023 3:00 PM EDT Office [place] [address] Gardenia Golden APRN [facility] [place] [address] 01/29/2024 1:[address] [place] [address] César Escobar MD [facility] [place] [address] 01/29/2024 2:30 PM EDT Office [place] [address] César Escobar MD [facility] [place] [address] documented as of this encounter Visit Diagnoses Diagnosis 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
--- OUTSIDE RECORDS SUMMARY | 2023-12-13 18:32 | XMS_ITS | Encounter Summary ---
Author Organization [facility] [place] [address] Care Team Providers Care School Age Lead Teacher Name Role Phone Shirley Yu MD Primary Care Provider [phone] Reason for Visit * Reason Comments Procedure Encounter Details Date Type Department Care Team (Late st Contact Info) Description 08/10/2012 1:15 PM EDT Procedure [place] [phone] Timothy Vega MD [facility] [place] [address] PDR (proliferative diabetic retinopathy) (Primary Dx) Discharge Disposition: Home Social History [...] Progress Notes * Timothy Vega MD - 08/10/2012 1:59 PM EDT Patient to return in: 2-3 weeks For: PRP OD with block documented in this encounter Plan of Treatment Upcoming Encounters Date Type Department Care Team (Late st Contact Info) Description 12/19/2023 1:00 PM EDT Tech [place] [phone] Rosa Maciastanguille Gonzalez 12/19/2023 3:00 PM EDT Office [place] [address] Gardenia Golden, LADARIUS [facility] [place] [address] 01/29/2024 1:[address] [place] [address] César Escobar MD [facility] [place] [address] 01/29/2024 2:30 PM EDT Office [place] [address] César Escobar MD [facility] DR THORACIC SURGERY [place], [place] [id number] documented as of this encounter Procedures Procedure Name Priority Date/Time Associated Diagnosis Comments DESTRUCTION PROG RETINOPATHY PHOTOCOAG - OS - LEFT EYE Routine 08/11/2012 1:22 AM EDT PDR (proliferative diabetic retinopathy) documented in this encounter Results * Laser Panretinal Photocoagulation - OS - Left Eye (08/11/2012 1:22 AM EDT) Laser Applications 770 Laser [employer] Anatomical Region Laterality Modality Other Addenda Addendum by Timothy Vega MD on 08/22/2012 1:00 PM EDT Timothy Vega MD OPHTHALMOLOGY [facility] ORDERABLES documented in this encounter Visit Diagnoses Diagnosis PDR (proliferative diabetic retinopathy)- Primary Type II or unspecified type diabetes mellitus with ophthalmic manifestations, not stated as uncontrolled documented in this encounter Care Teams School Age Lead Teacher Relationship Specialty Start Date End Date Shirley Yu MD [address] [place] [address] PCP - General 03/02/10 10/19/14 documented as of this encounter
--- OUTSIDE RECORDS SUMMARY | 2023-12-13 18:32 | XMS_ITS | Encounter Summary ---
[place] [address] Care Team Providers Care Lock Tender Chief Operator Name Role Phone Shirley Yu MD Primary Care Provider [phone] Encounter Details Date Type Department Care Team ([facility] Contact Info) Description 10/25/2012 Telephone [place] [address] [address] Chacko [facility] [place] [address] Social History Tobacco Use Types Packs/Day Years [...] encounter Miscellaneous Notes * Telephone Encounter - Joanna Chacko RN - 10/25/2012 11:17 AM EDT Please refer this patient for sensor insertion (patient's) on 10/29/12. Thank you! Joanna documented in this encounter Plan of Treatment Upcoming Encounters Date Type Department Care Team ([facility] Contact Info) Description 12/19/2023 1:00 PM EDT Tech [place] [address] Marguerite Macias 12/19/2023 3:00 PM EDT Office Visit [place] [address] Gardenia Golden APRN [facility] [place] [address] 01/29/2024 1:[address] [place] [address] César Escobar MD [facility] [place] [address] 01/29/2024 2:30 PM EDT Office Visit [place] [address] César Escobar MD [facility] [place] [address] documented as of this encounter Visit Diagnoses Not on filedocumented in this encounter Care Teams Lock Tender Chief Operator Relationship Specialty Start Date End Date Shirley Yu MD [address] [place] [address] PCP - General 03/02/10 10/19/14 documented as of this encounter
--- OUTSIDE RECORDS SUMMARY | 2023-12-13 18:32 | XMS_ITS | Encounter Summary ---
Author Organization [facility] [place] [address] Care Team Providers Care Capture Manager Name Role Phone Shirley Yu MD Primary Care Provider [phone] Reason for Visit * Reason Comments Circulatory Problem Carotid Stenosis Encounter Details Date Type Department Care Team (Late st Contact Info) Description 07/13/2011 1:20 PM EDT Follow-[place] [phone] CLINIC, Bridget Simms MD [facility] [place] [address] Nam Maldonado MD [facility] [place] [address] Claudication (Primary Dx); Intermittent claudication; PAD (peripheral artery disease); 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 female. HPI Jennifer Bob is a 50-year-old nondiabetic woman who is being followed for both carotid and lowerextremity arterial disease. Past medical history significant for left carotid endarterectomy in 2000, with recurrent stenosis that has been stable at approximately 60%. She has little right carotid st enosis. She is status post left iliac stenting [...] experienced during ambulation around the house. She returns to clinic for CTA of the aorta, iliac and lower extremity vessels. She denies rest pain, non healing foot ulcers. She denies WILKINSON, VC, dizziness, numbness/tingling of the hands or feet. She had reduced her smoking to two cigarettes a day for several months and has now stopped entirely for 6 days while using her electronic cigarette. Vascular History: Denies AAA, ulceration or rest pain. No history of clotting. Denies DM, HTN Patient Active Problem List Diagnoses Code ??? 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 Intermittent claudication 443.9A ??? PAD (peripheral artery disease) 447.9DK ??? 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 Carotid stenosis 433.10Z Review of Systems Constitutional: Negative. HENT: Negative. [...] 24 hrs Temperature Heart Rate Heart Rate: 78 Heart Rate: [78] Blood Pressure BP: 132/70 mmHg BP: (132)/(70) Respiratory Rate Resp: -- SpO2 SpO2: -- Vascular Pulse Exam R L Radial [2]/2 [2]/2 Femoral [1]/2 [1/2] Popliteal [1]/2 [-]/2 + PT/DP doppler signal b/l CTA 07/12: Diffuse calcific aorto-iliac disease bilaterally, LEFT greater than RIGHT. The LEFT SANDI stent is patent with severe calcific stenosis in the proximal SANDI/SANDI stent. This is present in her prior scan in 2006. There is a stenosis of the SANDI just distal to the stent which has progressed. The LEFT RAIL SPLITTER shows severe calcific disease which has progressed since her prior scan. The SFA is diffusely diseased with a long segment occlusion on the 2D CT reconstruction with distal reconstiution of the below knee poplitel artery and three vessel runoff. A long stenosis is noted in the proximal RIGHT bypass graft. Assessment and Plan: A/P: Jennifer Bob is a 50 y.o. female seen in clinic today for stable LLE claudication, progression of LEFT iliac, common femoral, SFA atherosclerotic disease from her imaging in 2006. We discussed her options and that she likely would require, at the least, endarterectomy of the LEFT RAIL SPLITTER, likely iliac artery stent and possible distal bypass. She is amenable to this course of action but would like to wait until the fall. We discussed that this would be an excellent time for her to pursue a daily walking program to improve her claudications symptoms. She will call if her symptoms get worse and we will schedule arteriogram and vein mapping at that time. Otherwise, plan for 1 year follow up with repeat ABIS and graft duplex US. Smoking cessation emphasized as paramount to her symptoms improving as well as the durability of any future surgery.. Vascular Staff: I saw and examined the patient and agree with the above note. She appears to have some in-stent restenosis in her proximal left iliac stent as well as stenosis in the artery just distal to the stent.She has had significant progression of occlusive disease in the left common femoral and SFA which is occluded proximally. She is leaning towards surgical treatment but would like to postpone this until fall. Now that she has stopped smoking, I encouraged her to exercise daily to see if we could avoid surgery, which will be more difficult because of her obesity. If she desires surgery in the fall,she will call us to schedule an outpatient arteriogram to better define the distal anastomotic site in her left leg, and a duplex vein map to look for conduit. documented in this encounter Plan of Treatment Upcoming Encounters Date Type Department Care Team (Late st Contact Info) Description 12/19/2023 1:00 PM EDT Tech [place] [address] Marguerite Macias 12/19/2023 3:00 PM EDT Office Visit [place] [address] Gardenia Golden, LADARIUS [facility] DR VASCULAR SURGERY [place], [place] [id number] 01/29/2024 1:[address] [place] [address] César Escobar MD [facility] [place] [address] 01/29/2024 2:30 PM EDT Office [place] [address] César Escobar MD [facility] [place] [address] documented as of this encounter Results * Unilat Bypass Graft Assess (07/24/2012 9:59 AM EDT) Pathologist [facility] VB Text Report Department: Vascular Surgery Lab Patient: [id number] (JENNIFER BOB) CPT Code: 66541 ICD-9: 440.20 Referring Physician: BRIDGET AVENDANO Indication: ?? s/p right RAIL SPLITTER-Pop bpg ICD9 Diagnosis Code: 440.20 Findings: Right ?PSV (cm/s) ??EDV (cm/s) ?? Common Femoral Artery, Proximal ? 415 ?50 ?? Inflow Anastomosis ?262 ?41 ?? Graft, ??Proximal ?221 ?23 ?? Proximal Thigh Lower Limb Graft ? 132 ?12 ?? Popliteal Artery, Above Knee ? 66 ? 7 ?? Graft, Distal ?57 ? 8 ?? Outflow Anastomosis ?55 ? 6 ?? Interpretation: RIGHT Significant stenosis of the proximal to mid RAIL SPLITTER with PSVs of 415cm/sec. Significant change compared to previous study 05/25/11. Patent right lower extremity RAIL SPLITTER - ak Pop bypass graft with elevated PSVs in the proximal anastomosis and proximal graft of >200cm/sec. Minimal change compared to previous exam 05/25/11. Signed by BRIDGET AVENDANO on 2012-07-24 01:07:43 PM [facility] 07/24/2012 9:59 AM EDT Bridget Avendano MD VASCULAR ORDERABLES [facility] * SHEFALI, legs, multiple levels (07/24/2012 9:59 AM EDT) VB Text Report Department: Vascular Surgery Lab Patient: [id number] (JENNIFER BOB) CPT Code: 52583 ICD-9: 440.20 Referring Physician: BRIDGET AVENDANO Indication: ?PVOD, right RAIL SPLITTER-Pop bpg Diabetes mellitus: ?? yes ICD9 Diagnosis Code: 440.20 Definitions: ??SHEFALI = Ankle / Brachial Systolic Pressure Index, TBI = Toe / Brachial Systolic Pressure Index Findings: Right ?Pressure (mmHg) ?? SHEFALI ??Waveform ?TBI ?? Brachial Artery ?147 ? Dorsalis Pedis (Ankle) Artery ?94 ? 0.64 ??Rabun-Biphasic ? Posterior Tibial (Ankle) Artery ??87 ? 0.59 ??Rabun-Biphasic ? Great Toe ?71 ?0.48 ?? Left ? Pressure (mmHg) ?? SHEFALI ??Waveform ?TBI ?? Brachial Artery ?148 ? Dorsalis Pedis (Ankle) Artery ?66 ? 0.45 ??Rabun-Biphasic ? Posterior Tibial (Ankle) Artery ??68 ? 0.46 ??Rabun-Biphasic ? Great Toe ?40 ?0.27 ?? Interpretation: RIGHT: Moderate lower extremity arterial occlusive disease. Significant deterioration in TOOL ROOM SUPERVISOR SHEFALI compared to previous exam done on 05/25/11, no significant change in DPA SHEFALI. LEFT: Moderately severe lower extremity arterial occlusive disease. Significant improvement in ABIs compared to previous exam 05/25/11, no significant change in toe index.. 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
--- OUTSIDE RECORDS SUMMARY | 2023-12-13 18:32 | XMS_ITS | Encounter Summary ---
[place] [address] Care Team Providers Care Clinical Research Director Name Role Phone Shirley Yu MD Primary Care Provider [phone] Reason for Visit * Reason Comments Diabetes Encounter Details Date Type Department Care Team (Late st Contact Info) Description 11/26/2012 1:05 PM EDT Office [place] [address] Lluvia Oropeza APRN [facility] [place] [address] Joanna Chacko Ernestina [facility] [place] [address] Type I (juvenile type) diabetes mellitus with [...] Sign Reading Time Taken Comments Blood Pressure 152/71 11/26/2012 1:02 PM EDT Pulse 81 11/26/2012 1:02 PM EDT Temperature - - Respiratory Rate - - Oxygen Saturation - - Inhaled Oxygen Concentration - - Weight 99.5 kg (219 lb 6.4 oz) 11/26/2012 1:02 P M EDT Height - - Body Mass Index 34.36 10/29/2012 1:08 PM EDT documented in this encounter Patient Instructions * Patient Instructions* Lluvia Oropeza APRN - 11/26/2012 1:28 PM EDT Continue to attempt 5 lb weight loss documented in this encounter Progress Notes * Lluvia Oropeza APRN - 11/26/2012 6:29 PM EDT DATE OF VISIT: 11/26/2012 REASON FOR VISIT: Followup type 1 DM, in good overall control with complication of retinopathy. BRIEF HISTORY: Presents and states some time she loses the CGMS during the night and sometimes the readings are different than her meter. SBGM, six times a day. Dx code: 250.51 Justification for more glucose testing is to prevent hyper and hypoglycemia. Has widely fluctuatingglucose levels. DATE OF DIAGNOSIS OF DIABETES: At age 15. DIABETES REGIMEN: Insulin pump. Basal rates are the same as they were in July, has appointment later this afternoon with TAMEKA TRUJILLO. Prevention strategies are up-to-date. She does go to the dentist, does have an annual dilated eye exam. REVIEW OF SYSTEMS: Depression and Mood: Is happily working approximately 24 hours a week and she states she is definitely more active. Eyes: Followed closely by career development coordinator/teacher. No recent headaches, or chest pain, or shortness of breath. No recent GI symptoms. Appetite is good. Sleep Pattern: Uses CPAP mask consistently. Extremities: History of bypass graft on right leg. Has PAD. PHYSICAL EXAMINATION: Appearance: She is obese with a large central girth. Weight 219 pounds. She has lost 3 pounds since previous office visit. Blood pressure 152/71. Eyes: No retinopathy by green light exam. Neck: No thyromegaly or lymphadenopathy. Heart: Regular rate and rhythm. No murmurs. Lungs are clear to auscultation. Feet: Skin is normal. Pulses are normal. Neuro: Normal sensation to 10 g of pressure. Will send to the lab at the end of her appointments today. Hemoglobin A1c at the time of dictation 7.5%. IMPRESSION AND PLAN: Diabetes mellitus type 1, in good overall control with a few hypoglycemic events. Will continue to use the insulin pump and sensor to avoid hypoglycemia and obtain the best glucose control possible. Habits: occasionally smokes a cigarette. Is in contemplation phase of behavior change. Blood pressure is close to goal. This was a 32-minute office visit with 31 minutes spent counseling [id number] with the patient in the management of glucose levels, prevention and treatment of hypoglycemia. Return to office in February. Will check hemoglobin A1c. Recent Results (from the past 72 hour(s)) COMPREHENSIVE METABOLIC PANEL (NON-FASTING) Component Value Range Glucose Lvl 93 60 - 199 mg/dL BUN 26 (*) 8 - 18 mg/dL Creatinine 1.38 (*) 0.70 - 1.20 mg/dL Sodium 141 135 - 145 mmol/L Potassium 4.4 3.5 - 5.0 mmol/L Chloride 104 98 - 107 mmol/L CO2 26 22 - 31 mmol/L Anion Gap 11 5 - 15 mmol/L Calcium 9.5 8.5 - 10.5 mg/dL Total Protein 7.3 6.4 - 8.3 gm/dL Albumin 4.3 3.2 - 5.2 gm/dL AST 23 0 - 30 unit/L ALT 14 0 - 30 unit/L Alk Phos 91 40 - 104 unit/L Total Bilirubin 0.4 0.2 - 1.3 mg/dL Bili, Direct 0.1 0.0 - 0.3 mg/dL Estimated GFR 40 (*) >=60 HEMOGLOBIN A1C Component Value Range Hemoglobin A1C 7.5 (*) 4.3 - 6.1 % Est Avg Gluc 169 TSH Component Value Range TSH 0.83 0.27 - 4.20 mcIU/mL HDL/CHOL PROFILE Component Value Range Chol, Total 164 <=199 mg/dL HDL 72 >=40 mg/dL Chol/HDL Ratio 2.3 LDL CHOLESTEROL, DIRECT Component Value Range LDL Chol Direct 81 <=99 mg/dL MICROALBUMIN, URINE, RANDOM Component Value Range U Creatinine 65 U Ran Malb Conc 25.0 U Ran Malb Calc 38 documented in this encounter Plan of Treatment Upcoming Encounters Date Type Department Care Team (Late st Contact Info) Description 12/19/2023 1:00 PM EDT Tech Visit [place] [phone] Marguerite Macias 12/19/2023 3:00 PM EDT Office [place] [address] Gardenia Golden APRN [facility] [place] [address] 01/29/2024 1:[address] [place] [phone] César Escobar MD [facility] [place] [address] 01/29/2024 2:30 PM EDT Office [place] [phone] César Escobar MD [facility] [place] [address] documented as of this encounter Procedures Procedure Name Priority Date/Time Associated Diagnosis Comments U ALBUMIN/CRE RATIO Routine 11/26/2012 3 :18 PM EDT 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, uncontrolled TSH Routine 11/26/2012 3:11 PM EDT 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, uncontrolled LDL CHOLESTEROL, DIRECT Routine 11/26/2012 3:11 PM EDT 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, uncontrolled HDL/CHOL PROFILE Routine 11/26/2012 3:11 PM EDT 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, uncontrolled HEMOGLOBIN A1C Routine 11/26/2012 3:11 PM EDT 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 30 - 300 Clinical Albuminuria ?? >300 *[place] Diabetes Association. Diabetic Nephropathy. Diabetes Care 1997;(Suppl 1):S24-S27 Exercise within 24 hour, infection, fever, CHF, marked hyperglycemia, and marked hypertension may elevate urinary albumin excretion over baseline values. Urine specimen (specimen) 11/26/2012 3:18 PM EDT 11/26/2012 3:23 PM EDT Narrative Resulting Agency Comment Spec In Lab Paulino Oakley MD URINE ORDERABLES [facility] * LDL Cholesterol, Direct (11/26/2012 3:11 PM EDT) LDL Cholesterol, Direct 81 <=99 mg/dL CERNER MILLENNIUM Comment: The National Cholesterol Education Program (NCEP) has set the following guidelines for LDL Cholesterol: Reference range: ?? Optimal: ?<100 mg/dL ?? Near Optimal/Above Optimal: ?? 100-129 mg/dL ?? Borderline high: ?130-159 mg/dL ?? High: ? 160-189 mg/dL ?? Very high: ?>hk=055 mg/dL SEPIDEH 2001: 285(19):8659-3578 Blood specimen (specimen) 11/26/2012 3:11 PM EDT 11/26/2012 3:23 PM EDT Narrative Resulting Agency Comment Spec In Lab Paulino Oakley MD CHEMISTRY ORDERABLES Performing Organization Address [facility] Co de Phone Number MARCO SHEPARDIUM * HDL/Cholesterol Profile (11/26/2012 3:11 PM EDT) Cholesterol, Total 164 <=199 mg/dL CERNER MILLENNIUM Comment: Recommendations of the NCEP Adult Treatment Panel for the following risk cutoff thresholds for the [place] population: Desirable: <200 mg/dL Borderline High: 200-239 mg/dL High: > or = 240 mg/dL HDL Cholesterol 72 >=40 mg/dL CER NER MILLENNIUM Comment: Reference range: ??Low HDL: ?? < 40 mg/dL ??Normal: ?40-60 mg/dL ??Desirable: > 60 mg/dL SEPIDEH 2001; 285(19):2449-7740 Cholesterol/HDL Ratio 2.3 ratio CERNER MILLENNIUM Comment: A Cholesterol to HDL ratio below 4:1 is desirable. ??Studies suggest that increased CAD risk occurs at ratios above 5 for females and above 6 for men. ? [place] Heart Association ??(http://www.americanheart.org) ? Bianka Int Med, 1994; 121:641 ? AM J Med, 1998; 105(1A):48S Blood specimen (specimen) 11/26/2012 3:11 PM EDT 11/26/2012 3:23 PM EDT Narrative Resulting Agency Comment Spec In Lab Paulino Oakley MD CHEMISTRY ORDERABLES Performing Organization Address [facility]/ZIP Co de Phone Number MARCO SHEPARDIUM * TSH (11/26/2012 3:11 PM EDT) Thyroid Stimulating Hormone 0.83 0.27 - 4.20 mcIU/mL [facility] Blood specimen (specimen) 11/26/2012 3:11 PM EDT 11/26/2012 3:23 PM EDT Narrative Resulting Agency Comment Spec In Lab Paulino Oakley MD CHEMISTRY ORDERABLES [facility] * (ABNORMAL) Hemoglobin A1c (11/26/2012 3:11 PM EDT) Hemoglobin A1c 7.5(H) 4.3 - 6.1 % [facility] Comment: The [place] Diabetes Association (ADA) has stated that HbA1c values >or= 6.5% are consistent with the diagnosis of diabetes mellitus. In the absence of hyperglycemia (i.e. plasma glucose > 200 mg/dL) or classic symptoms of hyperglycemia a repeat measurement of HbA1c should be performed on a separate sample to confirm the diagnosis. The ADA also considers an HbA1c value between 5.7% and 6.4% to be consistent with an increased risk of diabetes (prediabetes). Patients with an HbA1c value in this range should be counseled about their increased risk of progressing to diabetes. Reference: Position Statement: Standards of Medical Care in Diabetes 2013. Diabetes Care 2013:36;suppl 1:S11-S66. Estimated Average Glucose 169 mg/dL [facility] Comment: eAG equivalents for HbA1c percentages: HbA1c(%) ?eAG(mg/dL) 6.0 ?126 6.5 ?140 7.0 ?154 7.5 ?169 8.0 ?183 8.5 ?197 9.0 ?212 9.5 ?226 10.0 ? 240 Limitations: The eAG calculation has not been validated on women, individuals below 18 years old and above 70 years old, and individuals with hemoglobinopathies. Additional resources are available on the ADA website: ??http://professional.diabetes.org/glucosecalculator.aspx Chandra WELLS, Nikky J, Quinn R, et al. ??Translating the A1C assay into estimated average glucose values. ??Diabetes Care 2008:31(8):2893-0862. Blood specimen (specimen) 11/26/2012 3:11 PM EDT 11/26/2012 3:23 PM EDT Narrative Resulting Agency Comment Spec In Lab Paulino Oakley MD CHEMISTRY ORDERABLES [facility] * (ABNORMAL) Comprehensive metabolic panel (non-fasting) (11/26/2012 3:11 PM EDT) [facility] Glucose 93 60 - 199 mg/dL CERNER MILLENNIUM Comment:Diabetes: >=200 mg/d L plus symptoms Blood Urea Nitrogen 26(H) 8 - 18 mg/dL CERNER MILLENNIUM Creatinine 1.38(H) 0.70 - 1.20 mg/dL CERNER MILLENNIUM Comment: Please note that the pediatric reference intervals supplied above were not validated at [facility] [place] [place]. Results from pediatric patients should be interpreted in conjunction to the patient's age, height and muscle mass. Sodium 141 135 - 145 mmol/L CERNER MILLENNIUM Potassium 4.4 3.5 - 5.0 mmol/L CERNER MILLENNIUM Comment: Please note: ??Patients with WBC >100,000 may have falsely elevated Potassium levels. ??For accurate Potassium quantification in these patients send serum separator tube (gold top) for subsequent determinations. ??Contact the Clinical Chemistry Laboratory if there are any questions. Chloride 104 98 - 107 mmol/L CERNER MILLENNIUM Carbon Dioxide 26 22 - 31 mmol/L CERNER MILLENNIUM Anion Gap 11 5 - 15 mmol/L CERNER MILLENNIUM Calcium 9.5 8.5 - 10.5 mg/dL CERNER MILLENNIUM Protein, Total 7.3 6.4 - 8.3 gm/dL CERNER MILLENNIUM Albumin 4.3 3.2 - 5.2 gm/dL CERNER MILLENNIUM Aspartate Aminotransferase 23 0 - 30 unit/L CERNER MILLENNIUM Alanine Aminotransferase 14 0 - 30 unit/L CERNER MILLENNIUM Alkaline Phosphatase 91 40 - 104 unit/L CERNER MILLENNIUM Bilirubin, Total 0.4 0.2 - 1.3 mg/dL CERNER MILLENNIUM Bilirubin, Direct 0.1 0.0 - 0.3 mg/dL CERNER MILLENNIUM Est Glomerular Filtration Rate 40(L) >=60 CERNER MILLENNIUM Comment: This estimated GFR [...] the following links into your internet browser. 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
--- OUTSIDE RECORDS SUMMARY | 2023-12-13 18:32 | XMS_ITS | Encounter Summary ---
Author [place] [address] Care Team Providers Care Mud Trucker Name Role Phone Shirley Yu MD Primary Care Provider [phone] Encounter Details Date Type Department Care Team (Late Contact Info) Description 07/08/2011 Telephone [place] [address] Mario Avendano MD [facility] [place] [address] Social History Tobacco Use Types Packs/Day Years [...] Miscellaneous Notes * Telephone Encounter - Aurea Campos - 07/08/2011 1:33 PM EDT . documented in this encounter Plan of Treatment Upcoming Encounters Date Type Department Care Team (Late Contact Info) Description 12/19/2023 1:00 PM EDT Tech Visit Vascular Lab [place] [address] Marguerite Macias 12/19/2023 3:00 PM EDT Office Visit Vascular Surgery at [place] [phone] Gardenia Golden APRN [facility] [place] [address] 01/29/2024 1:[address] [place] [address] César Escobar MD [facility] [place] [address] 01/29/2024 2:30 PM EDT Office Visit [place] [address] César Escobar MD [facility] [place] [address] documented as of this encounter Visit Diagnoses Not on filedocumented in this encounter Care Teams Mud Trucker Relationship Specialty Start Date End Date Shirley Yu MD [address] [place] [address] PCP - General 03/02/10 10/19/14 documented as of this encounter
--- OUTSIDE RECORDS SUMMARY | 2023-12-13 18:32 | XMS_ITS | Encounter Summary ---
Author Organization [facility] [place] [address] Care Team Providers Care Speech Therapy Director Name Role Phone Shirley Yu MD Primary Care Provider [phone] Reason for Visit * Reason Comments Eye Problem The patient was refe rred for consultation by Dr. Figueroa so as to evaluate diabetic retinopathy in each eye. Jakob Ramirez M.D. Diabetes NPDR od/PDR os (ref' d by tre) Encounter Details Date Type Department Care Team (Late st Contact Info) Description 12/06/2011 10:00 AM EDT Follow-[place] [address] Jakob Ramirez MD [facility] [place] [address] Proliferative diabetic retinopathy, left eye (Primary Dx); Carotid stenosis:.no peripheral blot hemorrhages to support diagnosis of ocular ischemic syndrome; Moderate nonproliferative diabetic retinopathy of right eye Discharge Disposition: Home Social History Tobacco Use Types Packs/Day Years Used Date Smoking Tobacco: Former Cigarettes Smokeless Tobacco: Former Quit: 08/26/2011 Comments:4 sometimes Alcohol Use Standard Drinks/Week Comments No 0 (1 standard drink = 0.6 oz pur e alcohol) Sex and Gender Information Value Date Recorded Sex Assigned at Not on file Gender Identity Not on file Sexual Orientation Not on file documented as of this encounter Patient Instructions * Patient Instructions* Jakob Ramirez MD - 12/15/2011 6:10 PM EDT Please call Giselle at [phone] to set up the laser appointment for the left eye !! documented in this encounter Progress Notes * Jakob Ramirez MD - 12/15/2011 6:10 PM EDT December 15, 2011 RE: Jennifer Bob A#: [id number] Dear Gomez, Just a brief note regarding your patient, Jennifer Bob whom I saw for consultation on 11/28/2011. Thank you also for your correspondence which was received in advance of her visit. As you know, Jennifer is a 51-year-old patient whom you detected early neovascularization as well as diabetic retinopathy. I would concur with your clinical examination findings. There was clear evidence for neovascularization of the disk in the left eye and peripheral ischemia. Fortunately, there was too much in the way of macular leakage at this time. All things considered, I think the benefits of early treatment outweigh the risks in this situation before things become worse and we will try to secure an appointment for laser treatment sometime within the next several weeks. I anticipate following this patient over the next four months, will be sure, she returns to see you for continuity of care early next year. Thank you kindly for asking me to provide consultation for this nice patient. Respectfully, Jakob Ramirez M.D. documented in this encounter Nursing Notes * 12/06/2011 10:00 AM EDT >> JAKOB RAMIREZ MD [facility] Dec 15, 2011 6:10 PM The patient has noted some clotting vision over the past for 5 months but offers no other complaints. She is here at the request of her eye care provider evaluate diabetic retinopathy. She denies anypain or associated or modifying factors. She denies scotoma, metamorphopsia or visual field loss. Her last A1c was 8.2. Jakob Ramirez M.D. >> SEA DUMONT Dec 06, 2011 10:16 AM Pt sent by Dr. Figueroa for eval and treatment of diabetic ret. Pt c/o va os cloudy x 4-5 mos. No c/o va od. Last A1c 8.2 in September 2011. Last BS was 173 this am. documented in this encounter Plan of Treatment Upcoming Encounters Date Type Department Care Team (Late st Contact Info) Description 12/19/2023 1:00 PM EDT Tech Visit [place] [phone] Marguerite Macias 12/19/2023 3:00 PM EDT Office Visit [place] [address] Gardenia Golden, LADARIUS [facility] [place] [address] 01/29/2024 1:[address] [place] [address] César Escobar MD [facility] [place] [address] 01/29/2024 2:30 PM EDT Office [place] [address] César Escobar MD [facility] [place] [address] documented as of this encounter Procedures Procedure Name Priority Date/Time Associated Diagnosis Comments FLUORESCEIN ANGIOGRAPHY - OU - BOTH EYES Routine 12/15/2011 6:08 PM EDT Carotid stenosis:.no peripheral blot hemorrhages to support diagnosis of ocular ischemic syndrome FUNDUS PHOTOS - OU- BOTH EYES Routine 12/15/2011 6:07 PM EDT Carotid stenosis:.no peripheral blot hemorrhages to support diagnosis of ocular ischemic syndrome documented in this encounter Results * FLUORESCEIN ANGIOGRAPHY - OU- BOTH EYES (12/15/2011 6:08 PM EDT) Anatomical Region Laterality Modality Other Narrative 12/15/2011 6:08 PM EDT Fluorescein angiogram highlights early neovascularization of the disc and what appears to be peripheral ischemia. Multiple small foci of staining are seen the macula but no clear-cut leakage is ascertained in either eye. Procedure Note Jakob Ramirez MD - 12/15/2011 Fluorescein angiogram highlights early neovascularization of the disc andwhat appears to be peripheral ischemia. Multiple small foci of stainingare seen the macula but no clear-cut leakage is ascertained in eithereye. Jakob Ramirez MD OPHTHALMOLOGY [facility] ORDERABLES * FUNDUS PHOTOS - OU- BOTH EYES (12/15/2011 6:07 PM EDT) Anatomical Region Laterality Modality Other Narrative 12/15/2011 6:07 PM EDT Fundus photographs reveal is moderate nonproliferative diabetic retinopathy with hemorrhages but no blot hemorrhages are defined. The photos appear to support the presence of neovascularization of the disc Procedure Note Jakob Ramirez MD - 12/15/2011 Fundus photographs reveal is moderate nonproliferative diabeticretinopathy with hemorrhages but no blot hemorrhages are defined. Thephotos appear to support the presence of neovascularization of the disc Jakob Ramirez MD OPHTHALMOLOGY S [facility] ORDERABLES documented in this encounter Visit Diagnoses Diagnosis Proliferative diabetic retinopathy, left eye- Primary Type II or unspecified type diabetes mellitus with ophthalmic manifestations, not stated as uncontrolled Carotid stenosis:.no peripheral blot hemorrhages to support diagnosis of ocular ischemic syndrome Occlusion and stenosis of carotid artery without mention of cerebral infarction Moderate nonproliferative diabetic retinopathy of right eye Type II or unspecified type diabetes mellitus with ophthalmic manifestations, not stated as uncontrolled documented in this encounter Care Teams Speech Therapy Director Relationship Specialty Start Date End Date Shirley Yu MD [address] [place] [address] PCP - General 03/02/10 10/19/14 documented as of this encounter
--- OUTSIDE RECORDS SUMMARY | 2023-12-13 18:32 | XMS_ITS | Encounter Summary ---
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 08/13/2012 aspirin 81 mg EC tablet Take 81 mg by mouth daily. insulin lispro (HUMALOG) 100 unit/mL injection Inject 55-60 Units subcutaneously continuous. Via insulin pump cilostazol (PLETAL) 100 mg tablet Take 1 tablet by mouth 2 times daily. 180 tablet 3 10/15/2012 02/04/2019 CYANOCOBALAMIN, VITAMIN B-12, (VITAMIN B-12 ORAL) Take by mouth daily. 01/05/2018 losartan-hydrochlor othiazide (HYZAAR) 100-25 mg per tablet Take 1 tablet by mouth daily. 06/13/2014 Magnesium 250 mg Tab Take by mouth [...] PM EDT Tech [place] [phone] Marguerite Macias 12/19/2023 3:00 PM EDT Office [place] [address] Gardenia Golden, LADARIUS [facility] [place] [address] 01/29/2024 1:[address] [place] [phone] César Escobar MD [facility] [place] [address] 01/29/2024 2:30 PM EDT Office [place] [phone] César Escobar MD [facility] [place] [address] documented as of this encounter Procedures Procedure Name Priority Date/Time Associated Diagnosis Comments U ALBUMIN/CRE RATIO Routine 03/04/2013 1 0:49 AM EST 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 30 - 300 Clinical Albuminuria ?? >300 *[place] Diabetes Association. Diabetic Nephropathy. Diabetes Care 1997;(Suppl 1):S24-S27 Exercise within 24 hour, infection, fever, CHF, marked hyperglycemia, and marked hypertension may elevate urinary albumin excretion over baseline values. Urine specimen (specimen) 03/04/2013 10:49 AM EST 03/04/2013 11:03 AM EST Narrative Resulting Agency Comment Spec In Lab Paulino Oakley MD URINE ORDERABLES [facility] * (ABNORMAL) Hemoglobin A1c (03/04/2013 10:40 AM EST) Hemoglobin A1c 8.4(H) 4.3 - 6.1 % [facility] Comment: The [place] Diabetes Association (ADA) has stated that HbA1c [...] Statement: Standards of Medical Care in Diabetes ? 2013. Diabetes Care 2013:36;suppl 1:S11-S66. Estimated Average Glucose 194 mg/dL [facility] Comment: eAG equivalents for HbA1c percentages: HbA1c(%) [...] into estimated average glucose values. ??Diabetes Care 2008:31(8):6996-5107. 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
--- OUTSIDE RECORDS SUMMARY | 2023-12-13 18:32 | XMS_ITS | Encounter Summary ---
Author Organization [facility] [place] [address] Care Team Providers Care Insurance Claims Representative Name Role Phone Shirley Yu MD Primary Care Provider [phone] Encounter Details Date Type Department Care Team (Late Contact Info) Description 07/08/2011 External Results [place] [phone] Mario Avendano MD [facility] [place] [address] Social History Tobacco Use Types Packs/Day Years [...] PM EDT Tech [place] [phone] Marguerite Macias 12/19/2023 3:00 PM EDT Office [place] [address] Gardenia Golden APRN [facility] [place] [address] 01/29/2024 1:[address] [place] [place] [address] César Escobar MD [facility] [place] [address] 01/29/2024 2:30 PM EDT Office [place] [address] César Escobar MD [facility] [place] [address] documented as of this encounter Procedures Procedure Name Priority Date/Time Associated Diagnosis Comments LAB SCAN Routine 07/07/2011 documented in this encounter Results * Scan Doc: Lab (07/07/2011) Mario Avendano MD MEDIA MGR SCAN EXT ORDR/RSLT documented in this encounter Visit Diagnoses Not on filedocumented in this encounter Care Teams Insurance Claims Representative Relationship Specialty Start Date End Date Shirley Yu MD [address] [place] [address] PCP - General 03/02/10 10/19/14 documented as of this encounter
--- OUTSIDE RECORDS SUMMARY | 2023-12-13 18:32 | XMS_ITS | Encounter Summary ---
[place] [address] Care Team Providers Care Healthcare Recruiter Name Role Phone Shirley Yu MD Primary Care Provider [phone] Reason for Referral * Consultation (Routine) - Closed Specialty Diagnoses / Procedures Referred By Dominik mcleod Referred To Contact Endocrinology Diagnoses Type I (juvenile type) diabetes mellitus without mention of complication, not stated as uncontrolled Lluvia Oropeza [facility] [place] [address] [facility] [address] [place] [phone] Referral ID Status Reason Start Date Expiration Date V isits Requested Visits Authorized [id number] Closed Continuity of Care 10/25/2012 04/23/2013 1 1 Encounter Details Date Type Department Care Team (Late st Contact Info) Description 10/25/2012 Orders [place] [address] Lluvia Oropeza [facility] [place] [address] Type I (juvenile type) diabetes mellitus without mention of complication, not stated as uncontrolled (Primary Dx) Social History Tobacco Use Types [...] PM EDT Tech Visit Vascular Lab at [place] [phone] Marguerite Macias 12/19/2023 3:00 PM EDT Office Visit Vascular Surgery at [place] [phone] Gardenia Golden APRN [facility] [place] [address] 01/29/2024 1:[address] Scan at [place] [phone] César Escobar MD [facility] [place] [address] 01/29/2024 2:30 PM EDT Office Visit Thoracic Surgery at [place] [phone] César Escobar MD [facility] [place] [address] Scheduled Referrals Name Type Priority Associated Diagnoses Orde r Schedule Referral to Diabetic Education Outpatient Referral Routine Type I (juvenile type) diabetes mellitus without mention of complication, not stated as uncontrolled Ordered: 10/25/2012 documented as of this encounter Visit Diagnoses Diagnosis Type I (juvenile type) diabetes mellitus without mention of complication, not stated as uncontrolled- Primary documented in this encounter Care Teams Healthcare Recruiter Relationship Specialty Start Date End Date Shirley Yu MD [address] [place] [address] PCP - General 03/02/10 10/19/14 documented as of this encounter
--- OUTSIDE RECORDS SUMMARY | 2023-12-13 18:32 | XMS_ITS | Encounter Summary ---
Author Organization [facility] [place] [address] Care Team Providers Care Line Maintenance Name Role Phone Shirley Yu MD Primary Care Provider [phone] Reason for Visit * Reason Comments Procedure PRP OD Encounter Details Date Type Department Care Team (Late st Contact Info) Description 02/15/2013 1:15 PM EST Procedure visit [place] [address] Timothy Vega MD [facility] [place] [address] Proliferative diabetic retinopathy, left eye; PDR (proliferative diabetic retinopathy); Carotid stenosis Discharge Disposition: Home Social History [...] Progress Notes * Timothy Vega MD - 02/17/2013 7:54 PM EST Return in 8-10 weeks for a dilated exam a both eyes. Call if reduced vision or floaters or any changes in the right eye or left eye documented in this encounter Plan of Treatment Upcoming Encounters Date Type Department Care Team (Late st Contact Info) Description 12/19/2023 1:00 PM EDT Tech [place] [phone] Marguerite Macias 12/19/2023 3:00 PM EDT Office Visit [place] [address] Gardenia Golden, LADARIUS [facility] [place] [address] 01/29/2024 1:[address] [place] [address] César Escobar MD [facility] DR THORACIC SURGERY [place], [place] [address] 01/29/2024 2:30 PM EDT Office Visit [place] [address] César Escobar MD [facility] [place] [address] documented as of this encounter Procedures Procedure Name Priority Date/Time Associated Diagnosis Comments DESTRUCTION PROG RETINOPATHY PHOTOCOAG - OD - RIGHT EYE Routine 02/17/2013 7:54 PM EST documented in this encounter Results * Laser Panretinal Photocoagulation - OD - Right Eye (02/17/2013 7:54 PM EST) Laser Applications 898 Laser Total Energy Anatomical Region Laterality Modality Other Timothy Vega MD OPHTHALMOLOGY S [facility] ORDERABLES documented in this encounter Visit Diagnoses Diagnosis Proliferative diabetic retinopathy, left eye Type II or unspecified type diabetes mellitus with ophthalmic manifestations, not stated as uncontrolled PDR (proliferative diabetic retinopathy) Type II or unspecified type diabetes mellitus with ophthalmic manifestations, not stated as uncontrolled Carotid stenosis Occlusion and stenosis of carotid artery without mention of cerebral infarction documented in this encounter Care Teams Line Maintenance Relationship Specialty Start Date End Date Shirley Yu MD [address] [place] [address] PCP - General 03/02/10 10/19/14 documented as of this encounter
--- OUTSIDE RECORDS SUMMARY | 2023-12-13 18:32 | XMS_ITS | Encounter Summary ---
Author Organization [facility] [address] Care Team Providers Care Store Clerk Checker Name Role Phone Shirley Yu MD Primary Care Provider [phone] Encounter Details Date Type Department Care Team (Late st Contact Info) Description 03/04/2013 Orders [place] [address] Lluvia Oropeza REGISTERED NURSE TEACHER [facility] 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, not stated as uncontrolled (Primary Dx) Social [...] PM EDT Tech [place] [address] Marguerite Macias 12/19/2023 3:00 PM EDT Office [place] [phone] Gardenia Golden APRN [facility] [place] [address] 01/29/2024 1:[address] [place] [address] César Escobar MD [facility] [place] [address] 01/29/2024 2:30 PM EDT Office [place] [address] César Escobar MD [facility] THORACIC SURGERY [place], [place] [phone] documented as of this encounter Results * Microalbumin, urine, random (03/04/2013 10:49 AM EST) Creatinine, Urine 83 mg/dL CE HOLLY MILLENNIUM Albumin, Urine 88.8 mg/L KERRIE Roca MILLENNIUM Albumin / Creatinin Ratio, Urine 107 mcg/mg Cr [facility]CO MILLENNIUM Comment: Reference Range* Random collection (mcg/mg creatinine) Normal ?<30 Microalbuminuria ?? 30 - 300 Clinical Albuminuria ?? >300 *[place] Diabetes Association. Diabetic Nephropathy. Diabetes Care 1997;(Suppl 1):S24-S27 Exercise within 24 hour, infection, fever, CHF, marked hyperglycemia, and marked hypertension may elevate urinary albumin excretion over baseline values. Urine specimen (specimen) 03/04/2013 10:49 AM EST 03/04/2013 11:03 AM EST Narrative Resulting Agency Comment Spec In Lab Paulino Oakley MD URINE ORDERABLES [facility] * (ABNORMAL) Hemoglobin A1c (03/04/2013 10:40 AM EST) Hemoglobin A1c 8.4(H) 4.3 - 6.1 % [facility] Comment: The [place] Diabetes Association (ADA) has stated that HbA1c [...] 2013:36;suppl 1:S11-S66. Estimated Average Glucose 194 mg/dL [facility] Comment: eAG equivalents for HbA1c percentages: HbA1c(%) ?eAG(mg/dL) 6.0 ?126 6.5 ?140 7.0 ?154 7.5 ?169 8.0 ?183 8.5 ?197 9.0 ?212 9.5 ?226 10.0 ? 240 Limitations: The eAG calculation has not been validated on women, individuals below 18 years old and above 70 years old, and individuals with hemoglobinopathies. Additional resources are available on the ADA website: ??http://professional.diabetes.org/glucosecalculator.aspx Chandra WELLS, Nikky Jiang, Quinn R, et al. ??Translating the A1C assay into estimated average glucose values. ??Diabetes Care 2008:31(8):1797-4642. Blood specimen (specimen) 03/04/2013 10:40 AM EST 03/04/2013 10:45 AM EST Narrative Resulting Agency Comment Spec In Lab Paulino Oakley MD CHEMISTRY ORDERABLES 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
--- OUTSIDE RECORDS SUMMARY | 2023-12-13 18:32 | XMS_ITS | Encounter Summary ---
Author Organization [facility] [place] [address] Care Team Providers Care Lap Layer Name Role Phone Shirley Yu MD Primary Care Provider [phone] Reason for Visit * Reason Comments Procedure 4 wks prp w/ block # 2-OD Encounter Details Date Type Department Care Team (Late st Contact Info) Description 10/26/2012 9:45 AM EDT Procedure visit [place] [address] Timothy Vega MD [facility] DR [place] [address] PDR (proliferative diabetic retinopathy) (Primary Dx); Proliferative diabetic retinopathy, left eye; Carotid stenosis Discharge Disposition: Home Social History [...] Progress Notes * Timothy Vega MD - 10/27/2012 9:45 PM EDT Return 8 weeks for a dilated examination and complete reassessment of both eyes to assess response to laser. A retrobulbar block was not performed and she tolerated PRP laser fairly well Return immediately if pain vision loss or other changes documented in this encounter Plan of Treatment Upcoming Encounters Date Type Department Care Team (Late st Contact Info) Description 12/19/2023 1:00 PM EDT Tech [place] [address] Marguerite Macias 12/19/2023 3:00 PM EDT Office Visit [place] [address] Gardenia Golden, [facility]AR[facility] DR VASCULAR SURGERY [place], [place] [address] 01/29/2024 1:[address] [place] [address] César Escobar MD [facility] [place] [address] 01/29/2024 2:30 PM EDT Office Visit [place] [address] César Escobar MD [facility] DR THORACIC SURGERY [place], [place] [address] documented as of this encounter Procedures Procedure Name Priority Date/Time Associated Diagnosis Comments DESTRUCTION PROG RETINOPATHY PHOTOCOAG - OD - RIGHT EYE Routine 10/27/2012 9:45 PM EDT PDR (proliferative diabetic retinopathy) Proliferative diabetic retinopathy, left eye documented in this encounter Results * Laser Panretinal Photocoagulation - OD - Right Eye (10/27/2012 9:45 PM EDT) Laser Applications 550 Laser Total Energy Anatomical Region Laterality Modality Other Addenda Addendum by Timothy Vega MD on 10/27/2012 9:47 PM EDT Timothy Vega MD OPHTHALMOLOGY S [facility] ORDERABLES documented in this encounter Visit Diagnoses Diagnosis PDR (proliferative diabetic retinopathy)- Primary Type II or unspecified type diabetes mellitus with ophthalmic manifestations, not stated as uncontrolled Proliferative diabetic retinopathy, left eye Type II or unspecified type diabetes mellitus with ophthalmic manifestations, not stated as uncontrolled Carotid stenosis Occlusion and stenosis of carotid artery without mention of cerebral infarction documented in this encounter Care Teams Lap Layer Relationship Specialty Start Date End Date Shirley Yu MD [address] [place] [address] PCP - General 03/02/10 10/19/14 documented as of this encounter
--- OUTSIDE RECORDS SUMMARY | 2023-12-13 18:32 | XMS_ITS | Encounter Summary ---
Author Organization [facility] [place] [address] Care Team Providers Care Carding Doubler Name Role Phone Shirley uY MD Primary Care Provider [phone] Reason for Visit * Reason Comments Procedure prp OS; shared pt wi th dr. [place] Encounter Details Date Type Department Care Team (Late st Contact Info) Description 03/02/2012 1:00 PM EST Procedure [place] [address] Timothy Vega MD [facility] [place] [address] PDR (proliferative diabetic retinopathy); Moderate nonproliferative diabetic retinopathy of right eye; Carotid stenosis Discharge Disposition: Home Social [...] Progress Notes * Timothy Vega MD - 03/02/2012 1:49 PM EST 3 months dilate OU Stat prn NPDR OD/PDR OS Laser went well today documented in this encounter Nursing Notes * 03/02/2012 1:00 PM EST >> Lindsay SEA Awad Fri Mar 02, 2012 1:07 PM 51 y.o., C/O Patient here for possible PRP, OS. Patient feels OU same. LBSC 145@ 8:30am, Last A1C 8.3 12/20. DROPS:None HX:Diabetic retinopathy -Asthma or -COPD documented in this encounter Plan of Treatment Upcoming Encounters Date Type Department Care Team (Late st Contact Info) Description 12/19/2023 1:00 PM EDT Tech Visit Vascular Lab at [place] [phone] Marguerite Macias 12/19/2023 3:00 PM EDT Office [place] [address] Gardenia Golden, LADARIUS [facility] [place] [address] 01/29/2024 1:[address] [place] [address] César Escobar MD [facility] [place] [address] 01/29/2024 2:30 PM EDT Office [place] [address] César Escobar MD [facility] [place] [address] documented as of this encounter Procedures Procedure Name Priority Date/Time Associated Diagnosis Comments DESTRUCTION PROG RETINOPATHY PHOTOCOAG:SUB SESSION - OS - LEFT EYE Routine 03/02/2012 2:47 PM EST PDR (proliferative diabetic retinopathy) documented in this encounter Results * Panretinal Photocoagulation Subsqu. 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
--- OUTSIDE RECORDS SUMMARY | 2023-12-13 18:32 | XMS_ITS | Encounter Summary ---
[place] [address] Care Team Providers Care Temporary Data Entry Clerk Name Role Phone Shirley Yu MD Primary Care Provider [phone] Encounter Details Date Type Department Care Team (Late st Contact Info) Description 08/30/2012 Orders Only [place] [address] Danica Sanchez, RN PAD (peripheral artery disease) (Primary Dx) Social History Tobacco Use [...] PM EDT Tech Visit [place] [address] Marguerite Macias 12/19/2023 3:00 PM EDT Office Visit [place] [address] Gardenia Golden, [facility]AR[facility]US [facility] [place] [address] 01/29/2024 1:[address] Scan at [place] [phone] César Escobar MD [facility] [place] [address] 01/29/2024 2:30 PM EDT Office Visit [place] [phone] César Escobar MD [facility] [place] [address] documented as of this encounter Visit Diagnoses Diagnosis PAD (peripheral artery disease)- Primary Peripheral vascular disease, unspecified documented in this encounter Care Teams Temporary Data Entry Clerk Relationship Specialty Start Date End Date Shirley Yu MD [address] [place] [address] PCP - General 03/02/10 10/19/14 documented as of this encounter
--- OUTSIDE RECORDS SUMMARY | 2023-12-13 18:32 | XMS_ITS | Encounter Summary ---
[place] [address] Care Team Providers Care Production Line Technician Name Role Phone Shirley Yu MD Primary Care Provider Encounter Details Date Type Department Care Team (Late st Contact Info) Description 09/11/2012 12:00 PM EDT Ancillary Appointment [place] [address] Shirley [place], [place] Social History Tobacco Use Types Packs/Day Years [...] PM EDT Tech [place] [address] Marguerite Macias 12/19/2023 3:00 PM EDT Office Visit [place] [address] Gardenia Golden, PATENT LEATHER SORTER [facility] DR VASCULAR SURGERY [place], [place] [address] 01/29/2024 1:[address] [place] [address]1000 César Escobar MD [facility] [place] [address] 01/29/2024 2:30 PM EDT Office Visit [place] [address] César Escobar MD [facility] [place] [address] documented as of this encounter Visit Diagnoses Not on filedocumented in this encounter Care Teams Production Line Technician Relationship Specialty Start Date End Date Shirley Yu MD [address] [place] [address] PCP - General 03/02/10 10/19/14 documented as of this encounter
--- OUTSIDE RECORDS SUMMARY | 2023-12-13 18:32 | XMS_ITS | Encounter Summary ---
[place] [address] Care Team Providers Care Continuous Improvement Coordinator Name Role Phone Shirley Yu MD Primary Care Provider [phone] Reason for Visit * Reason Onset Date Comments Medication Refill 10/15/2012 Encounter Details Date Type Department Care Team (Late st Contact Info) Description 10/15/2012 Refill [place] [address] Leslie Monzon RN Social History Tobacco Use Types Packs/Day [...] PM EDT Tech [place] [address] Marguerite Macias 12/19/2023 3:00 PM EDT Office [place] [address] Gardenia Golden, LADARIUS [facility] [place] [address] 01/29/2024 1:[address] [place] [phone] César Escobar MD [facility] THORACIC SURGERY [place], [place] [id number] 01/29/2024 2:30 PM EDT Office [place] [address] César Escobar MD [facility] DR THORACIC SURGERY [place], [place] [id number] documented as of this encounter Visit Diagnoses Not on filedocumented in this encounter Care Teams Continuous Improvement Coordinator Relationship Specialty Start Date End Date Shirley Yu MD [address] [place] [address] PCP - General 03/02/10 10/19/14 documented as of this encounter
--- OUTSIDE RECORDS SUMMARY | 2023-12-13 18:32 | XMS_ITS | Encounter Summary ---
Author Organization [facility] [place] [address] Care Team Providers Care Car Whacker Name Role Phone Shirley Yu MD Primary Care Provider [phone] Reason for Visit * Reason Comments Procedure here for laser PRP O S today PDR OS Encounter Details Date Type Department Care Team (Late st Contact Info) Description 01/20/2012 1:30 PM EDT Procedure [place] [address] Timothy Vega MD [facility] DR [place] [address] PDR (proliferative diabetic retinopathy) OS (Primary Dx); Carotid stenosis; PAD (peripheral artery disease); Anxiety; Pain Discharge Disposition: Home Social History Tobacco Use [...] Progress Notes * Timothy Vega MD - 01/22/2012 3:44 PM EDT 4 weeks Dilate OS first. Plan PRP after examination documented in this encounter Nursing Notes * 01/20/2012 1:30 PM EDT >> JUAN A CEDILLO MonJan 20, 2012 1:58 PM Pt reports no changes or problems since last seen. No eye pain, though OS feels heavy. No use of eye drops. documented in this encounter Plan of Treatment Upcoming Encounters Date Type Department Care Team (Late st Contact Info) Description 12/19/2023 1:00 PM EDT Tech [place] [address] Marguerite Macias 12/19/2023 3:00 PM EDT Office [place] [address] Gardenia Golden, LADARIUS [facility] DR VASCULAR SURGERY [place], [place] [phone] 01/29/2024 1:[address] [place] [address] César Escobar MD [facility] [place] [address] 01/29/2024 2:30 PM EDT Office [place] [address] César Escobar MD [facility] [place] [address] documented as of this encounter Procedures Procedure Name Priority Date/Time Associated Diagnosis Comments DESTRUCTION PROG RETINOPATHY PHOTOCOAG - OS - LEFT EYE Routine 01/22/2012 3:44 PM EDT PDR (proliferative diabetic retinopathy) OS documented in this encounter Results * Laser Panretinal Photocoagulation - OS - Left Eye (01/22/2012 3:44 PM EDT) Laser Applications 900 Laser Total Energy Anatomical Region Laterality Modality Other Timothy Vega MD OPHTHALMOLOGY S [facility] ORDERABLES documented in this encounter Visit Diagnoses Diagnosis PDR (proliferative diabetic retinopathy) OS- Primary Type II or unspecified type diabetes mellitus with ophthalmic manifestations, not stated as uncontrolled Carotid stenosis Occlusion and stenosis of carotid artery without mention of cerebral infarction PAD (peripheral artery disease) Peripheral vascular disease, unspecified Anxiety Anxiety state, unspecified Pain Generalized pain documented in this encounter Care Teams Car Whacker Relationship Specialty Start Date End Date Shirley Yu MD [address] [place] [address] PCP - General 03/02/10 10/19/14 documented as of this encounter
--- OUTSIDE RECORDS SUMMARY | 2023-12-13 18:32 | XMS_ITS | Encounter Summary ---
Author Organization [place] [address] Care Team Providers Care Boat Carpenter Name Role Phone Shirley Yu MD Primary Care Provider [phone] Encounter Details Date Type Department Care Team (Late Contact Info) Description 12/01/2011 [place] [phone] Timothy Vega MD [facility] DR [place] [address] Social History Tobacco Use Types Packs/Day Years [...] PM EDT Tech [place] [address] Marguerite Macias 12/19/2023 3:00 PM EDT Office [place] [address] Gardenia Golden APRN [facility] [place] [address] 01/29/2024 1:[address] [place] [address] César Escobar MD [facility] DR THORACIC SURGERY [place], [place] [address] 01/29/2024 2:30 PM EDT Office [place] [address] César Escobar MD [facility] [place] [address] documented as of this encounter Visit Diagnoses Not on filedocumented in this encounter Care Teams Boat Carpenter Relationship Specialty Start Date End Date Shirley Yu MD [address] [place] [address] PCP - General 03/02/10 10/19/14 documented as of this encounter
--- OUTSIDE RECORDS SUMMARY | 2023-12-13 18:32 | XMS_ITS | Encounter Summary ---
[place] [address] Care Team Providers Care Study Hall Supervisor Name Role Phone Shirley Yu MD Primary Care Provider [phone] Encounter Details Date Type Department Care Team (Latest Contact Info) Description 10/10/2012 2:00 PM EDT Ancillary Appointment [place] [address] Lindsay Rondon, RVT PAD (peripheral artery disease) Social History [...] PM EDT Tech [place] [address] Marguerite Macias 12/19/2023 3:00 PM EDT Office [place] [address] Gardenia Golden, COAL CARRIER [facility] [place] [address] 01/29/2024 1:[address] [place] [address] César Escobar MD [facility] [place] [address] 01/29/2024 2:30 PM EDT Office [place] [address] César Escobar MD [facility] [place] [address] documented as of this encounter Procedures Procedure Name Priority Date/Time Associated Diagnosis Comments UNILATERAL BYPASS GRAFT ASSESS Routine 10/10/2012 2:18 PM EDT PAD (peripheral artery disease) SHEFALI, LEGS, MULTIPLE LEVELS Routine 10/10/2012 2:18 PM EDT PAD (peripheral artery disease) documented in this encounter Results * Unilat Bypass Graft Assess (10/10/2012 2:18 PM EDT) VB Text Report Department: Vascular Surgery Lab Patient: [id number] (JENNIFER WINTERS) CPT Code: 27561 ICD-9: 440.20 Referring Physician: BRIDGET NAVARRETE Indication: ?PVOD, right Fem-Pop bpg ICD9 Diagnosis Code: 440.20 Findings: Right ?PSV (cm/s) ??EDV ??Location ?? Inflow Artery ? 282 ?? 44 ??5A02_00_[id number] ?? Inflow Anastomosis ?143 ?? 33 ??5A02_00_[id number] ?? Proximal Graft ?158 ?? 22 ? Mid Thigh (Graft) ?90 ?? 12 ? Low Thigh (Graft) ?64 ?8 ? Distal Graft ? 80 ?? 16 ? Outflow Anastomosis ?78 ?? 13 ??[id number]_01_[id number] ?? Common Femoral Artery, Proximal ? 237 ?? 31 ? Common femoral artery, Distal ? 282 ?? 44 ? Outflow Artery (Graft) ? 99 ?? 18 ??[id number]_[id number] ?? Left ? PSV (cm/s) ??EDV ?? External Iliac Artery, Distal ? 195 ?? 40 ?? Common femoral artery, Distal ? 232 ?? 38 ?? Interpretation: Patent right Fem-Pop bpg with no significant stenosis. Patent DRUM LOADER AND UNLOADER with PSVs from 137 to 282cm/sec. This represents a significant reduction in PSV compared to last study. Electronically Signed by: BRIDGET NAVARRETE on 2012-10-10 04:27:41 PM VASCU[facility] VB Text Report End of Report VASCU[facility] 10/10/2012 2:18 PM EDT Bridget Navarrete MD VASCULAR ORDERABLES VASCUBASE * SHEFALI, legs, multiple levels (10/10/2012 2:18 PM EDT) VB Text Report Department: Vascular Surgery Lab Patient: [id number] (JENNIFER WINTERS) CPT Code: 12393 ICD-9: 440.20 Referring Physician: BRIDGET NAVARRETE Indication: ??PVOD, s/p Right ??DRUM LOADER AND UNLOADER-Pop bpg ??with PTLA , left leg stent Diabetes mellitus: ?? yes ICD9 Diagnosis Code: 440.20 SHEFALI = Ankle / Brachial Systolic Pressure Index, TBI = Toe / Brachial Systolic Pressure Index Findings: Right ?Pressure (mm Hg) ?? SHEFALI ??Waveform ?TBI ?? Brachial Artery ?131 ? Dorsalis Pedis (Ankle) Artery ?82 ?0.63 ??Bartholomew-Biphasic ? Posterior Tibial (Ankle) Artery ??85 ?0.65 ??Bartholomew-Biphasic ? Great Toe ?45 ? 0.34 ?? Left ? Pressure (mm Hg) ?? SHEFALI ??Waveform ?TBI ?? Brachial Artery ?130 ? Dorsalis Pedis (Ankle) Artery ?55 ?0.42 ??Bartholomew-Biphasic ? Posterior Tibial (Ankle) Artery ??57 ?0.44 ??Bartholomew-Biphasic ? Great Toe ?29 ? 0.22 ?? Interpretation: RIGHT: Moderate lower extremity arterial occlusive disease. Toe-brachial index substantially lower than ankle-brachial index indicates presence of moderately severe arterial occlusive disease in the distal calf and foot. Progressive decrease in toe index compared previous exams since 08/18. No significant change compared to previous exam 07/24/12 . LEFT: Moderately severe lower extremity arterial occlusive disease. Toe-brachial index substantially lower than ankle-brachial index indicates presence of severe arterial occlusive disease in the distal calf and foot No significant change compared to previous exam 07/24/12 Previous ABIs with change from previous value: [...] 0.15(-.23) ??0.64(+.05) 0.59(-.16) 0.48(-.10) 0.45(+.21) 0.46(+.17) 0.27(+.12) Current ? 0.63(-.01) 0.65(+.06) 0.34(-.14) 0.42(-.03) 0.44(-.02) 0.22(-.05) Electronically Signed by: BRIDGET NAVARRETE on 2012-10-10 04:28:00 PM VASCUBASE VB Text Report End of Report VASCU[facility] 10/10/2012 2:18 PM EDT Bridget Navarrete MD VASCULAR ORDERABLES [facility] documented in this encounter Visit Diagnoses Diagnosis PAD (peripheral artery disease) Peripheral vascular disease, unspecified documented in this encounter Care Teams Study Hall Supervisor Relationship Specialty Start Date End Date Shirley Yu MD [address] [place] [address] PCP - General 03/02/10 10/19/14 documented as of this encounter
--- OUTSIDE RECORDS SUMMARY | 2023-12-13 18:32 | XMS_ITS | Encounter Summary ---
[place] [address] Care Team Providers Care Vendor Analyst Name Role Phone Shirley Yu MD Primary Care Provider [phone] Encounter Details Date Type Department Care Team (Late st Contact Info) Description 07/24/2012 10:00 AM EDT Office [place] [address] Lindsay Rondon, RVT Claudication Social History Tobacco Use Types Packs/Day [...] EDT Tech Visit [place] [address] Marguerite Macias 12/19/2023 3:00 PM EDT Office Visit [place] [address] Gardenia Golden, [employer] [facility] [place] [address] 01/29/2024 1:[address] [place] [address] César Escobar MD [facility] [place] [address] 01/29/2024 2:30 PM EDT Office [place] [address] César Escobar MD [facility] [place] [address] documented as of this encounter Procedures Procedure Name Priority Date/Time Associated Diagnosis Comments UNILATERAL BYPASS GRAFT ASSESS Routine 07/24/2012 9:59 AM EDT Claudication SHEFALI, LEGS, MULTIPLE LEVELS Routine 07/24/2012 9:59 AM EDT Claudication documented in this encounter Results * Unilat Bypass Graft Assess (07/24/2012 9:59 AM EDT) VB Text Report Department: Vascular Surgery Lab Patient: [id number] (JENNIFER WINTERS) CPT Code: 22513 ICD-9: 440.20 Referring Physician: BRIDGET NAVARRETE Indication: ?? s/p right FORKLIFT TECHNICIAN-Pop bpg ICD9 Diagnosis Code: 440.20 Findings: Right [...] Significant stenosis of the proximal to mid FORKLIFT TECHNICIAN with PSVs of 415cm/sec. Significant change compared to previous study 05/25/11. Patent right lower extremity FORKLIFT TECHNICIAN - ak Pop bypass graft with elevated PSVs in the proximal anastomosis and proximal graft of >200cm/sec. Minimal change compared to previous exam 05/25/11. Signed by BRIDGET NAVARRETE on 2012-07-24 01:07:43 PM VAS[facility] 07/24/2012 9:59 AM EDT Bridget Navarrete MD VASCULAR ORDERABLES VASCUBASE * SHEFALI, legs, multiple levels (07/24/2012 9:59 AM EDT) VB Text Report Department: Vascular Surgery Lab Patient: [id number] (JENNIFER WINTERS) CPT Code: 36937 ICD-9: 440.20 Referring Physician: BRIDGET NAVARRETE Indication: ?PVOD, right FORKLIFT TECHNICIAN-Pop bpg Diabetes mellitus: ?? yes ICD9 Diagnosis Code: 440.20 Definitions: ??SHEFALI = Ankle / Brachial Systolic Pressure Index, TBI = Toe / Brachial Systolic Pressure Index Findings: Right ?Pressure (mmHg) ?? SHEFALI ??Waveform ?TBI ?? Brachial Artery ?147 ? Dorsalis Pedis (Ankle) Artery ?94 ? 0.64 ??Malheur-Biphasic ? Posterior Tibial (Ankle) Artery ??87 ? 0.59 ??Malheur-Biphasic ? Great Toe ?71 ?0.48 ?? Left ? Pressure (mmHg) ?? SHEFALI ??Waveform ?TBI ?? Brachial Artery ?148 ? Dorsalis Pedis (Ankle) Artery ?66 ? 0.45 ??Malheur-Biphasic ? Posterior Tibial (Ankle) Artery ??68 ? 0.46 ??Malheur-Biphasic ? Great Toe ?40 ?0.27 ?? Interpretation: RIGHT: Moderate lower extremity arterial occlusive disease. Significant deterioration in METAL FRAMER SHEFALI compared to previous exam done on [...] 0.46 (+0.17) 0.27 (+0.12) Signed by BRIDGET NAVARRETE on 2012-07-24 01:08:04 PM [facility]AS[facility] 07/24/2012 9:59 AM EDT Bridget Navarrete MD VASCULAR ORDERABLES VASCUBASE documented in this encounter Visit Diagnoses Diagnosis Claudication Peripheral vascular disease, unspecified documented in this encounter Care Teams Vendor Analyst Relationship Specialty Start Date End Date Shirley Yu MD [address] [place] [address] PCP - General 03/02/10 10/19/14 documented as of this encounter
--- OUTSIDE RECORDS SUMMARY | 2023-12-13 18:32 | XMS_ITS | Encounter Summary ---
Author Organization [facility] [place] [address] Care Team Providers Care Batch Attendant Name Role Phone Shirley Yu MD Primary Care Provider [phone] Reason for Visit * Reason Comments Diabetes The patient presents for followup evaluation of diabetic retinopathy in each eye. HORTENCIA Moss Encounter Details Date Type Department Care Team (Late st Contact Info) Description 01/10/2013 1:15 PM EDT [place] [address] Timothy Vega MD [facility] [place] [address] PDR (proliferative diabetic retinopathy). Stable status post panretinal laser photocoagulation both eyes; Carotid stenosis Discharge Disposition: Home Social History [...] Progress Notes * Timothy Vega MD - 01/20/2013 7:48 PM EDT Patient stable status post panretinal laser for [...] PM EDT Tech [place] [address] Marguerite Macias 12/19/2023 3:00 PM EDT Office [place] [address] Gardenia Golden, LADARIUS [facility] [place] [address] 01/29/2024 1:[address] [place] [address] César Escobar MD [facility] [place] [address] 01/29/2024 2:30 PM EDT Office [place] [address] César Escobar MD [facility] [place] [address] documented as of this encounter Visit Diagnoses Diagnosis PDR (proliferative diabetic retinopathy). Stable status post panretinal laser photocoagulation both eyes Type II or unspecified type diabetes mellitus with ophthalmic manifestations, not stated as uncontrolled Carotid stenosis Occlusion and stenosis of carotid artery without mention of cerebral infarction documented in this encounter Care Teams Batch Attendant Relationship Specialty Start Date End Date Shirley Yu MD [address] [place] [address] PCP - General 03/02/10 10/19/14 documented as of this encounter
--- OUTSIDE RECORDS SUMMARY | 2023-12-13 18:32 | XMS_ITS | Encounter Summary ---
Author Organization [facility] [place] [address] Care Team Providers Care Dealer Relationship Manager Name Role Phone Shirley Yu MD Primary Care Provider [phone] Reason for Visit * Reason Onset Date Comments Eye Problem 02/27/2013 Encounter Details Date Type Department Care Team (Late st Contact Info) Description 02/27/2013 Telephone [place] [address] Timothy Vega MD [facility] [place] [address] Eye Problem Social History Tobacco Use Types Packs/Day Years [...] Miscellaneous Notes * Telephone Encounter - Lulu Dick COT - 02/27/2013 11:00 AM EST Patient called to report vision in the right eye is still cloudy/like just getting out of shower,same as post laser, usually clears and it hasn't this time. No other changes noted. Reassured, sometimes can take time for vision to clear, will have Dr. Vega review, if he feels sooner appointment needed, statistical secretary will call to schedule. Otherwise keep pending appointment in April; call if worsens/changes, etc. Timothy Vega MD Physician 02/17/2013 7:55 PM Signed Return in 8-10 weeks for a dilated exam a both eyes. Call if reduced vision or floaters or any changes in the right eye or left eye. S/p PRP OD with pending appt 04/18/13. * Telephone Encounter - Nathaly Crow - 02/27/2013 10:35 AM EST She had laser OD 2 weeks ago w/CBC, vision is still cloudy and hard to see. documented in this encounter Plan of Treatment Upcoming Encounters Date Type Department Care Team (Late st Contact Info) Description 12/19/2023 1:00 PM EDT Tech Visit [place] [address] Marguerite Macias 12/19/2023 3:00 PM EDT Office Visit [place] [address] Gardenia Golden, LADARIUS [facility] DR VASCULAR SURGERY [place], [place] [address] 01/29/2024 1:[address] [place] [address] César Escobar MD [facility] [place] [address] 01/29/2024 2:30 PM EDT Office Visit [place] [address] César Escobar MD [facility] [place] [address] documented as of this encounter Visit Diagnoses Not on filedocumented in this encounter Care Teams Dealer Relationship Manager Relationship Specialty Start Date End Date Shirley Yu MD [address] [place] [address] PCP - General 03/02/10 10/19/14 documented as of this encounter
--- OUTSIDE RECORDS SUMMARY | 2023-12-13 18:32 | XMS_ITS | Encounter Summary ---
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 Discharge Disposition: Home Social History Tobacco Use [...] Sign Reading Time Taken Comments Blood Pressure 137/65 09/11/2012 12:15 PM EDT Pulse 59 09/11/2012 12:15 PM EDT Temperature 35.6 ??C (96 ??F) 09/11/2012 9:45 AM EDT Respiratory Rate 18 09/11/2012 12:15 PM EDT Oxygen Saturation 96% 09/11/2012 12:15 PM EDT Inhaled Oxygen Concentration - - Weight - - Height - - Body Mass Index - - documented in this encounter Discharge Instructions * Discharge Instructions* Mukesh Whitney RN - 09/11/2012 10:02 AM EDT [facility] Interventional Radiology Post Angiography Instructions Procedure: Bilateral lower extremity angiogram with left pelvic stent and right groin angioplasty Puncture Site: Left groin Date: 09/11/2012 Physician: Dr. Mcguire 1. At home we advise you to [...] work with the above restrictions on . Vascular Department at until 4:45pm. After 4:45pm call and ask for the Vascular resident labor relations manager. 10. If you are a diabetic and [...] 1 tablet by mouth 2 times daily. 60 tablet 2 09/11/2012 10/15/2012 CYANOCOBALAMIN, VITAMIN B-12, (VITAMIN B-12 ORAL) Take by mouth daily. 01/05/2018 losartan-hydrochloro thiazide (HYZAAR) 100-25 mg per tablet Take 1 tablet by mouth daily. 06/13/2014 Magnesium 250 mg Tab Take by mouth daily. 12/20/2021 citalopram (CELEXA) 20 mg tablet Take 20 mg by mouth daily. 01/02/2017 levothyroxine (SYNTHROID) 100 mcg tablet Take 100 mcg by mouth daily. 10/14/2014 simvastatin (ZOCOR) 40 mg tablet Take 40 mg by mouth nightly. 01/02/2017 dabigatran (PRADAXA) 150 mg capsule Take 150 mg by mouth 2 times daily. 08/24/2015 documented as of this encounter Progress Notes * Sheyla Hernandez RN - 09/14/2012 8:23 AM EDT Interventional and Vascular Radiology Post-Procedure Call Name: Jennifer Bob Age: 51 y.o. Sex; Female Date of : 1960 (home) No relevant phone numbers on file. PCP ZOFIA YU MD [phone] Date/Time of call: September 14, 2012/8:24 AM/ Procedure: BLE angiogram Contact with patient Patient's states patient is asleep. She is doing fine and will call ifquestions and or concerns. If not patient, whom? Message left on answering machine: Call attempted - unable to contact patient: Are you having pain related to your procedure now? How are you managing your pain? Are you having any other problems related to you procedure? Comments: How would you rate your pain management during the procedure? Comments: Did you have anxiety during your procedure? Comments: Did the discharge instructions you received answer your questions Comments: Did you feel you were given adequate instructions prior to your procedure? Comments: On a scale of 0 to 10, how well were you satisfied with the care you received in Interventional Radiology? Comments: Is there anything we could have done differently? Comments: Nurse Comments: * Luis E Zarco RN - 09/06/2012 6:24 PM EDT [facility] NURSING DATABASE Name: JENNIFER BOB Date of : 1960 AGE 51 y.o. [address]: [address] [place] [phone] (home) Referring Provider: Bridget Avendano Reason for Visit: Bilateral LE Angio with possible stent placement. Allergies Allergen Reactions ??? Penicillins Unknown ??? Sulfa (Sulfonamide Antibiotics) Pertinent PMH: Patient Active Problem List Diagnoses Code ??? Hyperkeratosis palmaris et plantaris 757.39 ??? Intermittent claudication 443.9 ??? PAD (peripheral artery disease) 443.9 ??? 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 Carotid stenosis 433.10 ??? Proliferative diabetic retinopathy, left eye 250.50 ??? Moderate nonproliferative diabetic retinopathy of right eye 250.50 ??? PDR (proliferative diabetic retinopathy) 250.50 Past Medical History Diagnosis Date ??? Allergy Sulfa, Penicillin ??? Cataract ??? Thyroid disease Hyperthyroidism ??? Cardiac disease PAD ??? Hypertension ??? Skin disease Hyperkeratosis palmaris et plantaris ??? Diabetes mellitus Type 1 ??? DM eyes ??? Hyperlipidemia Pertinent PSH: Past Surgical History Procedure Date ??? Vascular surgery 2001 Left CEA ??? Vascular surgery 2006 Left com iliac stent, R SFA stents ??? Vascular surgery 1009 Right DICTATING MACHINE MECHANIC-AK pop vein graft ??? Retinal laser surgery 01/20/2012 OS Date/Procedure Comments: 12-14-06 LLE A-Gram with stents placed Heparin 8000units, Versed 5.5mg., Fentanyl 225mcg. 12-16-05 RLE A-gram with stents placed Heparin 8000 units, Versed 5.5mg. Fentanyl 275, NTG 11-17-05 Bilateral Aortogram Versed 4mg., Fentanyl 175mcg. 09/11/12 [id number] w/stent&LIGHTNING ROD INSTALLER to LtEIA OPS [id number] anurag well Laboratory Results: Medications: Prior to Admission medications Medication Sig Start Date End Date Taking? Authorizing Provider CYANOCOBALAMIN, VITAMIN B-12, (VITAMIN B-12 ORAL) Take by mouth daily. Amber Iraheta MD losartan-hydrochlorothiazide (HYZAAR) 100-25 mg per tablet Take 1 tablet by mouth daily. Amber Iraheta MD Magnesium 250 mg Tab Take by mouth daily. Amber Iraheta MD aspirin 81 mg EC tablet Take 81 mg by mouth daily. Amber Iraheta MD citalopram (CELEXA) 20 mg tablet Take 20 mg by mouth daily. Amber Iraheta MD levothyroxine (SYNTHROID) 100 mcg tablet Take 100 mcg by mouth daily. Amber Iraheta MD simvastatin (ZOCOR) 40 mg tablet Take 40 mg by mouth nightly. Amber Iraheta MD dabigatran (PRADAXA) 150 mg capsule Take 150 mg by mouth 2 times daily. ProviderAmber MD insulin lispro (HUMALOG) 100 unit/mL injection Inject subcutaneously See Admin Instructions. Via insulin pump ProviderAmber MD MED'S TO STOP DAY OF PROCEDURE: MED'S TO STOP DAYS OUT: PT. INFORMED: (Y/N) LABS ORDERED: (place an X in front of lab) NONE PLT CBC PT/INR BUN CREAT K OTHER LABS ORDERED IN EDH: For outpatient procedures: This patient has been informed that they require a rolloff driver to drive them home after this procedure. In the absence of a rolloff driver, IR will not be able to perform this procedureand will need to reschedule. Pt verbalized understanding of these instructions during the pre-procedure education via phone. documented in this encounter H&P Notes * Nam Maldonado MD - 09/11/2012 7:22 AM EDT Vascular Surgery Pre-Angiography Note HPI: Jennifer Bob is a 51 y.o. female with past medical history significant for both carotid and lower extremity arterial disease. She has little right carotid stenosis. She [...] worse with daily symptoms experienced during ambulation aroundthe house. She had CTA last year which showed L iliac in stent stenosis, and prox vein graft stenosis, which we decided to manage conservatively. She denies rest pain, non healing foot ulcers. She denies WILKINSON, VC, dizziness, numbness/tingling of the hands or feet. She stopped smoking completely 4 mo ago Patient Active Problem List Diagnoses Code ??? Hyperkeratosis palmaris et plantaris 757.39 ??? Intermittent claudication 443.9 ??? PAD (peripheral artery disease) 443.9 ??? 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 Carotid stenosis 433.10 ??? Proliferative diabetic retinopathy, left eye 250.50 ??? Moderate nonproliferative diabetic retinopathy of right eye 250.50 ??? PDR (proliferative diabetic retinopathy) 250.50 Medications: Current Outpatient Prescriptions on File Prior to Encounter Medication Sig Dispense Refill ??? CYANOCOBALAMIN, VITAMIN B-12, (VITAMIN B-12 ORAL) Take by mouth daily. ??? losartan-hydrochlorothiazide (HYZAAR) 100-25 mg per tablet Take 1 tablet by mouth daily. ??? Magnesium 250 mg [...] subcutaneously See Admin Instructions. Via insulin pump Vascular Hx: 1. Left and right carotid endarterectomy in , with recurrent left stenosis that has been stable at approximately 60%. 2. Left iliac stenting in 2005 (8x40m Celsenseer) 3. Right common femoral to above-knee popliteal vein graft in 2008 -Gen: alert, appears stated age and cooperative -CV: Cor RRR -Resp: Clear Auscultation -Abd: abdomen is soft without significant tenderness, masses, organomegaly or guarding -Extremities: Motor and sensory function intact x4 Vascular Pulse Exam R L Carotid [2]/2 bruit ([]) [2]/2 bruit ([]) Radial [2]/2 [2]/2 Femoral [2]/2 [2/2 Popliteal [2]/2 [2]/2 Labs: BUN/CR: 1. Studies: CTA Diffuse calcific aorto-iliac disease bilaterally, LEFT greater than RIGHT. The LEFT SANDI stent is patent with severe calcific stenosis in the proximal SANDI/SANDI stent. This is present in her prior scan in 2006. There is a stenosis of the SANDI just distal to the stent which has progressed. The LEFT DICTATING MACHINE MECHANIC shows severe calcific disease which has progressed [...] 147 Dorsalis Pedis (Ankle) Artery 94 0.64 Morrison-Biphasic Posterior Tibial (Ankle) Artery 87 0.59 Morrison-Biphasic Great Toe 71 0.48 Left Pressure (mmHg) SHEFALI Waveform TBI Brachial Artery 148 Dorsalis Pedis (Ankle) Artery 66 0.45 Morrison-Biphasic Posterior Tibial (Ankle) Artery 68 0.46 Morrison-Biphasic Great Toe 40 0.27 Interpretation: RIGHT: Moderate lower extremity arterial occlusive disease. Significant deterioration in LIGHTNING ROD INSTALLER SHEFALI compared to previous exam done on 05/25/11, no significant change in DPA SHEFALI. LEFT: Moderately severe lower extremity arterial occlusive disease. Significant improvement in ABIs compared to previous exam 05/25/11, no significant change in toe index. 07/24/12 right graft duplex Findings: Right PSV (cm/s) EDV (cm/s) Common Femoral Artery, Proximal 415 50 Inflow Anastomosis 262 41 Graft, Proximal 221 23 Proximal Thigh Lower Limb Graft 132 12 Popliteal Artery, Above Knee 66 7 Graft, Distal 57 8 Outflow Anastomosis 55 6 Interpretation: RIGHT Significant stenosis of the proximal to mid DICTATING MACHINE MECHANIC with PSVs of 415cm/sec. Patent right lower extremity DICTATING MACHINE MECHANIC - ak Pop bypass graft with elevated PSVs in the proximal anastomosis and proximal graft of >200cm/sec. A/P: Jennifer Bob is a 51 y.o. [...] LEFT side iliac stenoses, and potentially the rightcommon femoral and graft stenosis depending on how these look on arteriography. Of note, the left common femoral artery appears adequate for puncture based on the last arteriogram, but there may be stenosis of the profunda, with an occluded SFA, so we will want to image that side during arteriography also. Bicarb protocol ASA 3 Malampati 2 documented in this encounter Procedure Notes * Bridget Avendano MD - 09/11/2012 10:01 AM EDT Vascular Surgery Procedure Note Pre-procedure Dx: LEFT lower extremity claudication Post-procedure Dx: Same Procedure: 1. Percutaneous access LEFT DICTATING MACHINE MECHANIC, ultimately to 6F destination sheath 2. Aortogram, WIGGINS LEFT pelvic arteriogram 3. LEFT EIA stent placement (8x60mm Everflex dilated to 7mm) 4. Aorta to LEFT EIA transcatheter pullback pressures 5. RIGHT DICTATING MACHINE MECHANIC arteriogram 6. RIGHT DICTATING MACHINE MECHANIC angioplasty (Milana 5x40mm to 6 elias) 7. Stationed RIGHT DICTATING MACHINE MECHANIC to popliteal vein bypass angiogram 8. Proximal RIGHT bypass angioplasty (Milana 5x40mm to 6 elias) 9. LLE bolus sanna arteriogram 10. Mynx closure Surgeons: Joel Avendano Anesthesia: Conscious sedation, local 10 cc 1% lidocaine Heparin: 5000 units Ancef: Cleocin 300mg Protamine: none Fluoro Time: 14.1 min Contrast: 65 cc Indications for the Procedure: Jennifer [...] study which was lower than expected, so itonly appears improved now. Plan stand LEFT, puncture LEFT for treatment of LEFT side iliac stenoses, and potentially the right common femoral and graft stenosis depending on how these look on arteriography. Findings: Aorta : 1. The aorta was [...] was treated with Protege Everflex 8x60mm via a6fr sheath. Additional treatment [was not required. Additional [...] treatment area, briskly filling vessels distally. 8. Left external [...] holding area. After a discussion of the risksand benefits, operative consent was obtained. The patient was brought to the angio suite and placedsupine upon the angio table. The patient was [...] and successfully deployed. The stent catheter was thenexchanged over wire for a Milana 7x40mm balloon and the stent dilated to 6 elias. Follow up arteriogram demonstrated no residual stenosis or dissection. Intra-arterial pullback pressure measurements were taken across the SANDI to the EIA artery through 4F NTA and demonstrated no pressure gradient with the aorta. We then went up and over to select the RIGHT DICTATING MACHINE MECHANIC in an anterograde fashion using a J-wire and a mod-hook catheter. The RIGHT lower extremity was imaged in stationed fashion. Findings are as describedabove. The J -wire and flush catheter were next exchanged out for a platform consisting of .035 amplatz stiff wire, 6F destination sheath and 4F NTA, allowing selection of the RIGHT DICTATING MACHINE MECHANIC and femoral bypass graft. The DICTATING MACHINE MECHANIC and proximal bypass were then balloon angioplastied with a Milana 5x40mm balloon. Dissection noted in treated segment of DICTATING MACHINE MECHANIC despite repeat angioplasty. Brisk distal filling of [...] the procedure with the assistance of a yingjordy barger nurse. Complications: RIGHT common femoral artery dissection, not flow limiting Disposition: ?? To Recovery, flat for 1 hour ?? Duplex of RIGHT DICTATING MACHINE MECHANIC in recovery ?? Pletal ?? Discharge home per angio recovery ?? Follow up 1 month I was the attending physician supervising the resident in the above care and I was present with theresident for the entire procedure. I agree w above note. Pt may need L fem pop but will hope iliac stenosis Rx will be sufficient. documented in this encounter Miscellaneous Notes * Miscellaneous - Provider, Scanning - 09/18/2012 9:23 AM EDT * Miscellaneous - Provider, Scanning - 09/18/2012 9:20 AM EDT documented in this encounter Plan of Treatment Upcoming Encounters Date Type Department Care Team (Late st Contact Info) Description 12/19/2023 1:00 PM EDT Tech [place] [phone] Marguerite Macias 12/19/2023 3:00 PM EDT Office Visit Vascular [place] [phone] Gardenia Golden APRN [facility] [place] [address] 01/29/2024 1:[address] [place] [phone] César Escobar MD [facility] [place] [address] 01/29/2024 2:30 PM EDT Office Visit [place] [phone] César Escobar MD [facility] [place] [address] documented as of this encounter Procedures Procedure Name Priority Date/Time Associated Diagnosis Comments POCT GLUCOSE Routine 09/11/2012 10:08 AM EDT ARTERIAL DUPLEX LEG UNILA Routine 09/11/2012 9:51 AM EDT VS ARTERIOGRAM LOWER EXTREMITY VASCULAR SURGERY Routine 09/11/2012 9:33 AM EDT Intermittent claudication 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 PAD (peripheral artery disease) POCT GLUCOSE Routine 09/11/2012 7:40 AM EDT POCT GLUCOSE Routine 09/11/2012 7:18 AM EDT CREATININE STAT 09/11/2012 6:45 AM EDT PAD (peripheral artery disease) 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 99 ?? 18 ??[id number] ?? Left ? PSV (cm/s) ??EDV ?? External Iliac Artery, Distal ? 195 ?? 40 ?? Common femoral artery, Distal ? 232 ?? 38 ?? Interpretation: Patent right Fem-Pop bpg with no significant stenosis. Patent DICTATING MACHINE MECHANIC with PSVs from 137 to 282cm/sec. This represents a significant reduction in PSV compared to last study. Electronically Signed by: BRIDGET AVENDANO on 2012-10-10 04:27:41 PM [facility] VB Text Report End of Report [facility] 10/10/2012 2:18 PM EDT Bridget Avendano MD VASCULAR ORDERABLES [facility] * SHEFALI, legs, multiple levels (10/10/2012 2:18 PM EDT) VB Text Report Department: Vascular Surgery Lab Patient: [id number] (JENNIFER BOB) CPT Code: 95116 ICD-9: 440.20 Referring Physician: BRIDGET AVENDANO Indication: ??PVOD, s/p Right ??DICTATING MACHINE MECHANIC-Pop bpg ??with PTLA , left leg stent Diabetes mellitus: ?? yes ICD9 Diagnosis Code: 440.20 SHEFALI = Ankle / Brachial Systolic Pressure Index, TBI = Toe / Brachial Systolic Pressure Index Findings: Right ?Pressure (mm Hg) ?? SHEFALI ??Waveform ?TBI ?? Brachial Artery ?131 ? Dorsalis Pedis (Ankle) Artery ?82 ?0.63 ??Morrison-Biphasic ? Posterior Tibial (Ankle) Artery ??85 ?0.65 ??Morrison-Biphasic ? Great Toe ?45 ? 0.34 ?? Left ? Pressure (mm Hg) ?? SHEFALI ??Waveform ?TBI ?? Brachial Artery ?130 ? Dorsalis Pedis (Ankle) Artery ?55 ?0.42 ??Morrison-Biphasic ? Posterior Tibial (Ankle) Artery ??57 ?0.44 ??Morrison-Biphasic ? Great Toe ?29 ? 0.22 ?? [...] 0.42(-.03) 0.44(-.02) 0.22(-.05) Electronically Signed by: BRIDGET AVENDANO on 2012-10-10 04:28:00 PM [facility] VB Text Report End of Report [facility] 10/10/2012 2:18 PM EDT Bridget Avendano MD VASCULAR ORDERABLES [facility] * POCT Glucose (09/11/2012 10:08 AM EDT) Glucose, POC 190 60 - 199 mg/dL [facility] Comment: Supplemental ranges: <110 mg/dL before meals <200 mg/dL all other times of the day Blood specimen (specimen) 09/11/2012 10:08 AM EDT 09/11/2012 10:08 AM EDT Bridget Avendano MD POINT OF CARE TEST ORDERABLES [facility] * Arterial Duplex Leg, Unil (09/11/2012 9:51 AM EDT) VB Text Report Department: Vascular Surgery Lab Patient: [id number] (JENNIFER BOB) CPT Code: 57809 ICD-9: 440.30 Referring Physician: BRIDGET AVENDANO Indication: ?? s/p right DICTATING MACHINE MECHANIC and proximal bypass angioplasty, question dissection ICD9 Diagnosis Code: 440.30 Findings: Right ?PSV (cm/s) ??EDV (cm/s) ?? Common Femoral Artery, Mid ? 71 ? 9 ?? Common femoral artery, Distal ? 540 ?75 ?? Interpretation: RIGHT: Patent common femoral artery with prominent bruit noted in the distal segment with significantly elevated velocities (PSV:540cm/s). There is a 7.6x step up in velocities from the mid DICTATING MACHINE MECHANIC to the distal DICTATING MACHINE MECHANIC (PSV: 71 to 540cm/s). Due to suboptimal visualization, cannot exclude dissection in this segment, but there certainly is a severe stenosis. Velocities have increased compared to previous exam on 07/24/12. Patent proximal bypass through the mid thigh segment with normal velocities and monophasic Doppler waveforms. PSV cm/s EDV cm/s Prox anast: 160 24 Prox graft: 123 14 Mid thigh graft: 55 6.9 Signed by HUGO CUELLAR on 2012-09-16 01:22:17 PM [facility] 09/11/2012 9:51 AM EDT Bridget Avendano MD VASCULAR ORDERABLES [facility] * VS Angiogram/intervention (vascular) (09/11/2012 9:33 AM EDT) Anatomical Region Laterality Modality X-Ray Angiograph y 09/11/2012 9:33 AM EDT Narrative 09/17/2012 3:40 PM EDT Vascular Surgery Procedure Note Pre-procedure Dx: LEFT lower extremity claudication Post-procedure Dx: Same Procedure: 1. ?Percutaneous access LEFT DICTATING MACHINE MECHANIC, ultimately to 6F destination sheath 2. ?Aortogram, WIGGINS LEFT pelvic arteriogram 3. ?LEFT EIA stent placement (8x60mm Everflex dilated to 7mm) 4. ?Aorta to LEFT EIA transcatheter pullback pressures 5. ?RIGHT DICTATING MACHINE MECHANIC arteriogram 6. ?RIGHT DICTATING MACHINE MECHANIC angioplasty (Milana 5x40mm to 6 elias) 7. ?Stationed RIGHT DICTATING MACHINE MECHANIC to popliteal vein bypass angiogram 8. ?Proximal [...] up and over to select the RIGHT DICTATING MACHINE MECHANIC in an anterograde fashion using a J-wire and a mod-hook catheter. The RIGHT lower extremity was imaged in stationed fashion. Findings are as described above. The J -wire and flush catheter were next exchanged out for a platform consisting of .035 amplatz stiff wire, 6F destination sheath and 4F NTA, allowing selection of the RIGHT DICTATING MACHINE MECHANIC and femoral bypass graft. The DICTATING MACHINE MECHANIC and proximal bypass were then balloon angioplastied with a Milana 5x40mm balloon. Dissection noted in treated segment of DICTATING MACHINE MECHANIC despite repeat angioplasty. Brisk distal filling of [...] flat for 1 hour Duplex of RIGHT DICTATING MACHINE MECHANIC in recovery Pletal Discharge home per angio [...] interpretation reviewed by the attending Procedure Note Bridget Avendano MD - 09/17/2012 Vascular Surgery Procedure Note Pre-procedure Dx: LEFT lower extremity claudication Post-procedure Dx: Same Procedure: 1. Percutaneous access LEFT DICTATING MACHINE MECHANIC, ultimately to 6F destinationsheath 2. Aortogram, WIGGINS LEFT pelvic arteriogram 3. LEFT EIA stent placement (8x60mm Everflex dilated to 7mm) 4. Aorta to LEFT EIA transcatheter pullback pressures 5. RIGHT DICTATING MACHINE MECHANIC arteriogram 6. RIGHT DICTATING MACHINE MECHANIC angioplasty (Milana 5x40mm to 6 elias) 7. Stationed RIGHT DICTATING MACHINE MECHANIC to popliteal vein bypass angiogram 8. Proximal [...] was exchanged over wire for a Protege [id number] stent which was advanced across the distal iliac stent restenosis and successfully deployed. The stent catheter was then exchanged over wire fora Milana 7x40mm balloon and the stent dilated to 6 elias. Follow uparteriogram demonstrated no residual stenosis or dissection. Intra-arterial pullback pressure measurements were taken across the SANDI to the EIA artery erbxuzl0F NTA and demonstrated no pressure gradient with the aorta. We then went up and over to select the RIGHT DICTATING MACHINE MECHANIC in an anterograde fashion using a J-wire and a mod-hook catheter. The RIGHT lower extremity wasimaged in stationed fashion. Findings are as described above. The J -wire and flush catheter were next exchanged out for a platform consisting of .035 amplatz stiff wire, 6F destination sheath and 4F NTA, allowing selection of theRIGHT DICTATING MACHINE MECHANIC and femoral bypass graft. The DICTATING MACHINE MECHANIC and proximal bypass were thenballoon angioplastied with a Milana 5x40mm balloon. Dissection noted in treated segment of DICTATING MACHINE MECHANIC despite repeat angioplasty. Brisk distal filling of [...] flat for 1 hour Duplex of RIGHT DICTATING MACHINE MECHANIC in recovery Pletal Discharge home per angio recovery Follow up 1 month I was the attending physician supervising the resident in the above careand I was present with the resident for the entire procedure. I agree w abovenote. Pt may need L fem pop but will hope iliac stenosis Rx will be sufficient. Film and interpretation reviewed by the attending Bridget Avendano MD IMG IR ORDERABLES * POCT Glucose (09/11/2012 7:40 AM EDT) Glucose, POC 100 60 - 199 mg/dL [facility] Comment: Supplemental ranges: <110 mg/dL before meals <200 mg/dL all other times of the day Blood specimen (specimen) 09/11/2012 7:40 AM EDT 09/11/2012 7:40 AM EDT Bridget Avendano MD POINT OF CARE TEST ORDERABLES Performing Organization Address [facility] de Phone Number [facility] [employer] * (ABNORMAL) POCT Glucose (09/11/2012 7:18 AM EDT) Glucose, POC 50(L) 60 - 199 mg/dL [facility] Comment: Supplemental ranges: <110 mg/dL before meals <200 mg/dL all other times of the day Blood specimen (specimen) 09/11/2012 7:18 AM EDT 09/11/2012 7:18 AM EDT Bridget Avendano MD POINT OF CARE TEST ORDERABLES Performing Organization Address [facility] Phone Number [facility] [employer] * (ABNORMAL) Creatinine (09/11/2012 6:45 AM EDT) Creatinine 1.31(H) 0.70 - 1.20 mg/dL MARCO NTAHALIEROXANAIUM Comment: Please note that the pediatric reference intervals supplied above were not validated at [facility]. Results from pediatric patients should be interpreted in conjunction to the patient's age, height and muscle mass. Est Glomerular Filtration Rate 42(L) >=60 CERJESSICA NATHALIEENNIUM Comment: This estimated GFR (eGFR) value was [...] internet browser. http://www.nkdep.nih.gov/lab-evaluation.shtml http://www.kidney.org/professionals/ Blood specimen (specimen) 09/11/2012 6:45 AM EDT 09/11/2012 6:50 AM EDT Narrative Resulting Agency Comment Spec In Lab Vinay Sanchez MD CHEMISTRY ORDERABLES Performing Organization Address [facility] Co de Phone Number MARCO SIEGEL * (ABNORMAL) BUN (09/11/2012 6:45 AM EDT) Blood Urea Nitrogen 27(H) 8 - 18 mg/dL MARCO NATHALIEROXANASYDNEY Blood specimen (specimen) 09/11/2012 6:45 AM EDT 09/11/2012 6:50 AM EDT Narrative Resulting Agency Comment Spec In Lab Vinay Sanchez MD CHEMISTRY ORDERABLES Performing Organization Address [facility] Co de Phone Number MARCO SIEGEL documented in this [...] Action Date Dose Rate Site clindamycin (CLEOCIN) 600mg in dextrose 5% 50mL 600 mg, Intravenous, ONCE, 1 dose, On Mon09/11/12 at 0745, Administer over 20 Minutes, Angio/IR (Intra-Procedure), Indication for (Active or Suspected): Prophylaxis New Bag 09/11/2012 8:20 AM EDT 600 mg 150 mL/hr dextrose 50% 50% injection 1 dose, Starting on Mon09/11/12 at 0722, Until Mon09/11/12 at 0730, LUIS E ZARCO: cabinet override dextrose 50% injection 50 mL 50 mL, Intravenous, PER INSULIN PROTOCOL, Starting on Mon09/11/12 at 0725, Until Mon09/12/12 at 0222, Low blood sugar, Routine Given 09/11/2012 7:30 AM EDT 25 mLs fentaNYL (PF) 50 mcg/mL injection 1 dose, Starting on Mon09/11/12 at 0724, Until Mon09/11/12 at 0730, LUIS E ZARCO: cabinet override fentaNYL 50mcg/mL injection 25-50 mcg, Intravenous, EVERY 1 HOUR PRN, Starting on Mon09/11/12 at 0728, Until Mon09/11/12 at 0937, Pain, Angio/IR (Intra-Procedure), Routine Given 09/11/2012 7:30 AM EDT 300 mcg heparin (porcine) 1,000 unit/mL injection 1 dose, Starting on Mon09/11/12 at 0725, Until Mon09/11/12 at 0830, LUIS E ZARCO: cabinet override heparin (porcine) injection 10,000 Units 10,000 Units, Intravenous, ONCE, 1 dose, On Mon09/11/12 at 0745, Angio/IR (Intra-Procedure), Routine Given 09/11/2012 8:30 AM EDT 5,000 Units midazolam (VERSED) injection 0.5 mg 0.5 mg, Intravenous, EVERY 10 MIN PRN, Starting on Mon09/11/12 at 0728, Until Mon09/11/12 at 0937, Sleep, Angio/IR (Intra-Procedure), Routine Given 09/11/2012 9:35 AM EDT 5 mg sodium bicarbonate 150 mEq in dextrose 5% 1000 mL infusion 225 mL/hr, Intravenous, CONTINUOUS, Starting on Mon09/11/12 at 0745, Until Mon09/11/12 at 0844, Angio/IR (Day of Procedure) New Bag 09/11/2012 8:45 AM EDT 100 mL/hr 100 mL/hr New Bag 09/11/2012 7:45 AM EDT 300 mL/hr 300 mL/hr documented in this encounter Care Teams Mid Teacher Relationship Specialty Start Date End Date Zofia Yu MD [address] [place] [address] PCP - General 03/02/10 10/19/14 documented as of this encounter
--- OUTSIDE RECORDS SUMMARY | 2023-12-13 18:32 | XMS_ITS | Encounter Summary ---
[place] [address] Care Team Providers Care Welder Gun Name Role Phone Shirley Yu MD Primary Care Provider [phone] Reason for Visit * Reason Comments Diabetes Encounter Details Date Type Department Care Team (Late st Contact Info) Description 03/04/2013 11:00 AM EST Office [place] [address] Joanna Chacko [facility] [address] [place] [address] Diabetes mellitus type 1, uncontrolled (Primary Dx) Discharge Disposition: Home Social [...] Sign Reading Time Taken Comments Blood Pressure 151/76 03/04/2013 10:52 AM EST Pulse 80 03/04/2013 10:52 AM EST Temperature - - Respiratory Rate - - Oxygen Saturation - - Inhaled Oxygen Concentration - - Weight 99.3 kg (219 lb) 03/04/2013 10:52 AM EST Height 168.8 cm (5' 6.46) 03/04/2013 10:52 AM Ernestina THOMPSON Body Mass Index 34.86 03/04/2013 10:52 AM EST documented in this encounter Patient Instructions * Patient Instructions* Joanna Chacko RN - 03/05/2013 11:26 AM EST This patient will carry treatment for low blood sugar symptoms. She will go to [employer] for holiday diabetes recipes. She will change her carb ratio to 9:1 documented in this encounter Progress Notes * Joanna Chacko RN - 03/05/2013 11:00 AM EST Diabetes Self-Management Education Program Follow- up Visit Referring Provider: SHIRLEY YU MD Type of diabetes: Diabetes mellitus Type I, under poor control. REVEL 523 Mn= 1.3 6:30= 1.35 9= 1.3 12:30= 1.3 16:30= 1.3 18:00= 1.3 Total basal = 31.325 units TDD= 48.7, 53.7, 53.6, 59, 60 units 10:1, CF= 30, 95-120 Reassessment Ratings: 1=needs instruction 2=needs review 3=comprehends parham points 4=demonstrates competency N/A= not assessed Topic Reassessment Rating Comment/Re-education Knowledge of diabetes disease process 3 Nutrition Management 3 Weight is stable. Breakfast:8-9 am east timorese muffin+pb or cereal + fruit,coffee Lunch: 1:30 pb+j sandwich (sandwich thin bread)or tuna or turkey + occasional chips, Snack: cheese and pb+crax Dinner: hamburger, sauteed potatos, onions and green beans Snack: none or almonds or mixed nuts (handful) Good choices. Holiday eating and stress discussed. [employer] for recipes reviewed. Understanding of Physical Activity 2 Urged pt to walk to relieve stress and lower blood sugars. Sheworks 3 days a week at [employer] Medication Use 2 Carb ratio changed to 9:1 as her HA1c is higher (8.4% today). Monitoring and using results 3 smbg 5-6x/day Fbs= 137-200's AcL= 300's Acd= 162-263 Hs= 186-300 Target pre-and post-meal blood sugars reviewed. Preventing Acute Complications 3 No lows. + symptoms if low. Gets shakey, sweaty, lightheaded. Eats 15 Skittles to treat low blood sugars. Signs, sx and tx of high and low bgs reviewed. BP ok today. Preventing Chronic Complications, Risk Reduction 2 Patient had questions about dosing of her blood pressure pills. She will call her PCP. This patient has had her flu shot. Psychosocial Adjustment 2 This patient left her and now is back with him and they are seeing a counselor. She hopes that they can work out their problems. She has been very stressed. Behavior Change Strategies 3 Behavior goals reviewed. Last behavior goal: Patient to upload her sensor data to [employer] to review her data every few weeks Goal Achievement: 0% New Goal: Patient to use her sensor to get data about her trending of blood sugars so that changes in insulin can be made. Follow-up/DSMS Plan: Patient to go to [employer] for diabetes holiday recipes Time Spent Diabetes Education/Medical Nutrition Therapy: 35 minutes documented in this encounter Plan of Treatment Upcoming Encounters Date Type Department Care Team (Late st Contact Info) Description 12/19/2023 1:00 PM EDT Tech Visit [place] [address] Marguerite Macias 12/19/2023 3:00 PM EDT Office [place] [address] Gardenia Golden APRN [facility] [place] [address] 01/29/2024 1:[address] [place] [place] [address] César Escobar MD [facility] [place] [address] 01/29/2024 2:30 PM EDT Office [place] [address] César Escobar MD [facility] [place] [address] documented as of this encounter Visit Diagnoses Diagnosis Diabetes mellitus type 1, uncontrolled- Primary Type I (juvenile type) diabetes mellitus without mention of complication, uncontrolled documented in this encounter Care Teams Welder Gun Relationship Specialty Start Date End Date Shirley Yu MD [address] [place] [address] PCP - General 03/02/10 10/19/14 documented as of this encounter
--- OUTSIDE RECORDS SUMMARY | 2023-12-13 18:32 | XMS_ITS | Encounter Summary ---
[place] [address] Care Team Providers Care Fisher Line Name Role Phone Shirley Yu MD Primary Care Provider [phone] Reason for Visit * Reason Comments Diabetes Encounter Details Date Type Department Care Team (Late st Contact Info) Description 10/29/2012 1:00 PM EDT Office [place] [address] Joanna Chacko [facility] [place] [address] Diabetes type 1, uncontrolled (Primary Dx) Discharge Disposition: [...] Reading Time Taken Comments Blood Pressure 152/71 10/29/2012 1:08 PM EDT Pulse 85 10/29/2012 1:08 PM EDT Temperature - - Respiratory Rate 18 10/29/2012 1:08 PM EDT Oxygen Saturation - - Inhaled Oxygen Concentration - - Weight 100.6 kg (221 lb 12. 8 oz) 10/29/2012 1:08 PM EDT WITH SNEAKERS ON Height 170.2 cm (5' 7) 10/29/2012 1:08 PM EDT Body Mass Index 34.74 10/29/2012 1:08 PM EDT documented in this encounter Patient Instructions * Patient Instructions* Joanna Chacko RN - 10/30/2012 11:06 AM EDT This patient will use the CGMS as instructed and call this educator and /or Medtr[employer] for questionsabout her data or sensor problems. documented in this encounter Progress Notes * Joanna Chacko RN - 10/30/2012 11:04 AM EDT Jennifer Bob [id number] Jennifer Bob is a 52 y.o. old female. she is here for her sensor insertion (her own) according to [employer] CGMS protocol. Sensor material reviewed including: Understanding glucose sensing. Programming sensor information. Starting new sensor. Use of product (calibrating, reading CGMS data, therapy management systems). Basic care. Troubleshooting site and alarms. Jennifer was trained on the use of the CGM system following the Medtronic operation and safety checklist. Questions were answered during training and patient and patient expressed understanding. Sensor catheter was inserted with patient in the usual manner. Skin was prepped with alcohol and there was no problem with site or insertion. Catheter was placed. Patient was instructed to call this educator (number given) if she had questions regarding blood glucose data and Medtronic for any questions or concerns about the device itself. Jennifer demonstrates an understanding of the Sensor/Monitor use. She is to wear the Sensor for up to 72 hours, enter at least 4 blood glucoses a day. Emergency phone numbers and resources phone numbers given. Total visit time 90 minutes with the majority of that time spent in face to face counseling. documented in this encounter Plan of Treatment Upcoming Encounters Date Type Department Care Team (Late st Contact Info) Description 12/19/2023 1:00 PM EDT Tech [place] [phone] Marguerite Macias 12/19/2023 3:00 PM EDT Office [place] [address] Gardenia Golden APRN [facility] [place] [address] 01/29/2024 1:[address] [place] [address] César Escobar MD [facility] [place] [address] 01/29/2024 2:30 PM EDT Office [place] [address] César Escobar MD [facility] [place] [address] documented as of this encounter Visit Diagnoses Diagnosis Diabetes type 1, uncontrolled- Primary Type I (juvenile type) diabetes mellitus without mention of complication, uncontrolled documented in this encounter Care Teams Fisher Line Relationship Specialty Start Date End Date Shirley Yu MD [address] [place] [address] PCP - General 03/02/10 10/19/14 documented as of this encounter
--- OUTSIDE RECORDS SUMMARY | 2023-12-13 18:32 | XMS_ITS | Encounter Summary ---
[place] [address] Care Team Providers Care Cafe Team Member Name Role Phone Shirley Yu MD Primary Care Provider [phone] Reason for Visit * Reason Onset Date Comments Results 12/24/2012 Encounter Details Date Type Department Care Team (Late Contact Info) Description 12/24/2012 Telephone [place] [address] Seda Parra RN Results Social History Tobacco Use Types Packs/Day Years [...] encounter Miscellaneous Notes * Telephone Encounter - Seda Parra RN - 12/24/2012 9:57 AM EDT Pt calls to request copy of lab results from 11/26/12 be mailed to her home. Done. documented in this encounter Plan of Treatment Upcoming Encounters Date Type Department Care Team (Late st Contact Info) Description 12/19/2023 1:00 PM EDT Tech [place] [address] Marguerite Macias 12/19/2023 3:00 PM EDT Office [place] [address] Gardenia Golden APRN [facility] [place] [place] [address] 01/29/2024 1:[address] [place] [address] César Escobar MD [facility] [place] [address] 01/29/2024 2:30 PM EDT Office [place] [address] César Escobar MD [facility] [place] [address] documented as of this encounter Visit Diagnoses Not on filedocumented in this encounter Care Teams Cafe Team Member Relationship Specialty Start Date End Date Shirley Yu MD [address] [place] [address] PCP - General 03/02/10 10/19/14 documented as of this encounter
--- OUTSIDE RECORDS SUMMARY | 2023-12-13 18:32 | XMS_ITS | Encounter Summary ---
Author Organization [facility] [place] [address] Care Team Providers Care Bilingual Office Assistant Name Role Phone Shirley Yu MD Primary Care Provider [phone] Reason for Visit * Reason Comments Procedure PRP OD for PDR Encounter Details Date Type Department Care Team (Late st Contact Info) Description 09/28/2012 9:45 AM EDT Procedure [place] [address] Timothy Vega MD [facility] [place] [address] PDR (proliferative diabetic retinopathy) (Primary Dx); Carotid stenosis; Proliferative diabetic retinopathy, left eye Discharge Disposition: Home Social History Tobacco [...] Progress Notes * Timothy Vega MD - 10/01/2012 7:39 AM EDT 8 weeks or kenneth prn documented in this encounter Plan of Treatment Upcoming Encounters Date Type Department Care Team (Late st Contact Info) Description 12/19/2023 1:00 PM EDT Tech Visit Vascular Lab at [place] [phone] Marguerite Macias Lisa 12/19/2023 3:00 PM EDT Office [place] [address] Gardenia Golden APRN [facility] [place] [address] 01/29/2024 1:[address] [place] [address] César Escobar MD [facility] [place] [address] 01/29/2024 2:30 PM EDT Office [place] [address] César Escobar MD [facility] [place] [address] documented as of this encounter Procedures Procedure Name Priority Date/Time Associated Diagnosis Comments DESTRUCTION PROG RETINOPATHY PHOTOCOAG - OD - RIGHT EYE Routine 10/01/2012 7:39 AM EDT PDR (proliferative diabetic retinopathy) Carotid stenosis documented in this encounter Results * Laser Panretinal Photocoagulation - OD - Right Eye (10/01/2012 7:39 AM EDT) Laser Applications 768 Laser Total Energy Anatomical Region Laterality Modality Other Addenda Addendum by Timothy Vega MD on 10/01/2012 7:40 AM EDT Timothy Vega MD OPHTHALMOLOGY S ERVICES ORDERABLES documented in this encounter Visit Diagnoses Diagnosis PDR (proliferative diabetic retinopathy)- Primary Type II or unspecified type diabetes mellitus with ophthalmic manifestations, not stated as uncontrolled Carotid stenosis Occlusion and stenosis of carotid artery without mention of cerebral infarction Proliferative diabetic retinopathy, left eye Type II or unspecified type diabetes mellitus with ophthalmic manifestations, not stated as uncontrolled documented in this encounter Care Teams Bilingual Office Assistant Relationship Specialty Start Date End Date Shirley Yu MD [address] [place] [address] PCP - General 03/02/10 10/19/14 documented as of this encounter
--- OUTSIDE RECORDS SUMMARY | 2023-12-13 18:32 | XMS_ITS | Encounter Summary ---
[place] [address] Care Team Providers Care Relocation Coordinator Name Role Phone Shirley Yu MD Primary Care Provider [phone] Reason for Visit * Reason Onset Date Comments Labs Only 12/20/2012 Encounter Details Date Type Department Care Team (Late st Contact Info) Description 12/20/2012 Telephone [place] [address] Seda Parra, TAMEKA Labs Only Social History Tobacco Use Types Packs/Day Years [...] Miscellaneous Notes * Telephone Encounter - Seda Parra, TAMEKA - 12/21/2012 3:45 PM EDT I attempted to call pt re below; unable to leave message; voice-mail not set up. Humaira Oropeza APRN aware. * Telephone Encounter - Lluvia Oropeza APRN - 12/21/2012 2:21 PM EDT COMMUNITY ENGAGEMENT COORDINATOR mailed lab slip for HGBA1C to be done at pt's local lab * Telephone Encounter - Seda Parra, TAMEKA - 12/20/2012 4:40 PM EDT Calls to ask if lab orders can be mailed to her home. No future orders in eDH at this time. Humaira Oropeza APRN notified. documented in this encounter Plan of Treatment Upcoming Encounters Date Type Department Care Team (Late st Contact Info) Description 12/19/2023 1:00 PM EDT Tech [place] [address] Marguerite Macias 12/19/2023 3:00 PM EDT Office Visit [place] [phone] Gardenia Golden APRN [facility] [place] [place] [address] 01/29/2024 1:[address] [place] [address] César Escobar MD [facility] [place] [address] 01/29/2024 2:30 PM EDT Office [place] [address] César Escobar MD [facility] [place] [address] documented as of this encounter Visit Diagnoses Not on filedocumented in this encounter Care Teams Relocation Coordinator Relationship Specialty Start Date End Date Shirley Yu MD [address] [place] [address] PCP - General 03/02/10 10/19/14 documented as of this encounter
--- OUTSIDE RECORDS SUMMARY | 2023-12-13 18:32 | XMS_ITS | Encounter Summary ---
Author [place] [address] Care Team Providers Care Inspector Advanced Composite Name Role Phone Shirley Yu MD Primary Care Provider [phone] Encounter Details Date Type Department Care Team (Late st Contact Info) Description 11/26/2012 1:30 PM EDT Office [place] [address] Joanna Chacko, [facility] DR ENDOCRINOLOG[place] [address] Diabetes type 1, uncontrolled (Primary Dx) Social History Tobacco Use [...] * Patient Instructions* Joanna Chacko RN - 11/29/2012 9:15 AM EDT This patient will upload her sensor and pump data every few weeks to review where insulin changes are needed. documented in this encounter Progress Notes * Joanna Chacko, RN - 11/29/2012 8:50 AM EDT Diabetes Self-Management Education Program Follow- up Visit Referring Provider: SHIRLEY YU MD Type of diabetes: Diabetes mellitus Type I, under fair control. Diagnosed at age 15. Medtronic pump Mn= 1.3 630= 1.25 9= 1.35 12:30= 1.35 Total basal= 31.80 units 10:1 CF= 30 Target= 95-120 Active insulin= 4 hours TDD average= 54 units Reassessment Ratings: 1=needs instruction 2=needs review 3=comprehends parham points 4=demonstrates competency N/A= not assessed Topic Reassessment Rating Comment/Re-education Knowledge of diabetes disease process 3 Nutrition Management 2 Down 3 lbs from July. Breakfast: cereal/blueberries or serbian + pb, coffee with cream Lunch 1 pm= sandwich/ chips, coffee or Anatoliy green tea 4 pm snack: apple Dinner: grazes/veg/granola bar Bed = 10 pm Granola bar in evening, ice cream hs on weekends She is reducing portions to lose weight and is happy that it is working. Likes to bake- we discussed her getting some heart healthy recipes from [employer] Understanding of Physical Activity 2 Patient works 3 days a week at [employer]. On her feet all day makes her not want to exercise. I focused on the days she is off to walk for 20minutes- 4 days a week. Benefits reviewed. Medication Use 2 Insulin data uploaded. Patient taught how to upload her sensor and pump data to [employer]. She will do this every 2 weeks to review her data. Monitoring and using results 3 smbg 6x/day Fbs= 73-150 Acl=60-130 Acd= 140-160 Hs 140-180 Targets reviewed. A1c= 7.5% today= goals reviewed. Preventing Acute Complications 2 + lows, Not always sensing them. In early am or before lunch. Seesher patterns on her sensor. Counseled to ? Reduce mn basal or to have a fruit snack in mid am to prevent lows on work days at lunch. Preventing Chronic Complications, Risk Reduction 3 Wears a C-Pap routinely. Is up to date with dental checks and eye exam (within last year). Psychosocial Adjustment 3 Behavior Change Strategies 2 Behavior goals reviewed. Last behavior goal: Patient to wear her glucose sensor as directed. Goal Achievement: 100% New Goal: Patient to upload the data to [employer]e few weeks to review her sensor data Follow-up/DSMS Plan: Patient to the Medtronic website for more sensor uploading information Time Spent Diabetes Education/Medical Nutrition Therapy: 35 minutes documented in this encounter Plan of Treatment Upcoming Encounters Date Type Department Care Team (Late st Contact Info) Description 12/19/2023 1:00 PM EDT Tech Visit [place] [address] Marguerite Macias 12/19/2023 3:00 PM EDT Office [place] [address] Gardenia Golden, [facility] [place] [address] 01/29/2024 1:[address] [place] [address] César Escobar MD [facility] DR [place] [address] 01/29/2024 2:30 PM EDT Office [place] [address] César Escobar MD [facility] DR [place] [address] documented as of this encounter Visit Diagnoses Diagnosis Diabetes type 1, uncontrolled- Primary Type I (juvenile type) diabetes mellitus without mention of complication, uncontrolled documented in this encounter Care Teams Inspector Advanced Composite Relationship Specialty Start Date End Date Shirley Yu MD [address] [place] [address] PCP - General 03/02/10 10/19/14 documented as of this encounter
--- OUTSIDE RECORDS SUMMARY | 2023-12-13 18:32 | XMS_ITS | Encounter Summary ---
Author Organization Formerly [facility] [place] [address] Care Team Providers Care Replenishment Analyst Name Role Phone Shirley Yu MD Primary Care Provider [phone] Reason for Visit * Reason Onset Date Comments Eye Problem 01/31/2012 os is still puff y. she had laser w/ cbc on 01/20/12. Encounter Details Date Type Department Care Team (Late st Contact Info) Description 01/31/2012 [place] [id number] Lulu Roth MD [facility] [address] OPHTHAL[place] [address] Eye Problem (os is still puffy. she had laser w/ cbc on 01/20/12.) Social History Tobacco Use Types Packs/Day Years [...] encounter Miscellaneous Notes * Telephone Encounter - Yoly Fleming COA - 02/02/2012 11:42 AM EDT Pt saw Dr. Ramos and was told she had a red spot on LLL. Pt states she still has a lot of swellingon LLL down to cheek bone. LLL aches where swollen, no mucous discharge, not warm to touch and not having a fever but is very concerned that swelling has not gone away. Gave pt appt today at 1:45 with SMP as WTW. * Telephone Encounter - Sherice Rodriguez - 02/02/2012 11:08 AM EDT PT. CALLED-EYE PROBLEM NOT RESOLVED. SEEN BY AN EYE DOCTOR ON 01/31 & WAS TOLD THEY SAW A RED SPOT ON HER EYE. PT. CONCERNED. * Telephone Encounter - Giulia Joyce COT - 01/31/2012 5:19 PM EDT Patient reports area under eye is no longer red, it is still a little puffy. No d/c, no pain, not hot/warm to the touch and no fever. Explained that Dr. Vega would like to have her evaluated tomorrow to make sure no early infection. Pt would like to be seen by dr. toledo instead. She will call first thing in am to obtain apptand let us know if they can not see her. * Telephone Encounter - Giulia Joyce COT - 01/31/2012 3:49 PM EDT giulia ennis call * Telephone Encounter - Giulia Joyce COT - 01/31/2012 3:49 PM EDT Lm for patient to call back. Per CBC if fever, call in antibx and have patient come in tomorrow AM. * Telephone Encounter - Lulu Dick COT - 01/31/2012 2:31 PM EDT Patient called to report: 1. Swelling below the left eye which began 01/25/12 and is not improving. like a sack sitting above my cheek. Not red or hot feeling. Feels like a tootache around the eye and forehead. Does not seem to be worsening, staying about the same. Denies any decreased vision, eye redness, discharge, floaters/flashes. Does feel eye is more sensative when out in sun. Advised to try cold compresses and Tylenol. Will ask Dr. Vega to review and advise. Pending appt104/29/11. documented in this encounter Plan of Treatment Upcoming Encounters Date Type Department Care Team (Late st Contact Info) Description 12/19/2023 1:00 PM EDT Tech [place] [address] Marguerite Macias 12/19/2023 3:00 PM EDT Office [place] [address] Gardenia Golden, [facility]AR[facility] [place] [address] 01/29/2024 1:[address] [place] [place] [address] César Escobar MD [facility] [place] [address] 01/29/2024 2:30 PM EDT Office [place] [address] César Escobar MD [facility] [place] [address] documented as of this encounter Visit Diagnoses Not on filedocumented in this encounter Care Teams Replenishment Analyst Relationship Specialty Start Date End Date Shirley Yu MD [address] [place] [address] PCP - General 03/02/10 10/19/14 documented as of this encounter
--- OUTSIDE RECORDS SUMMARY | 2023-12-13 18:32 | XMS_ITS | Encounter Summary ---
Author Organization [facility] [place] [address] Care Team Providers Care Vice President Business & Corporate Development Name Role Phone Shirley Yu MD Primary Care Provider [phone] Reason for Visit * Reason Comments Eye Problem LLL red spot with philip yamilka Encounter Details Date Type Department Care Team (Late st Contact Info) Description 02/02/2012 3:00 PM EDT Office [place] [address] Lulu Taylor MD [facility] [place] [address] PDR (proliferative diabetic retinopathy) (Primary Dx) Discharge [...] as of this encounter Progress Notes * Lulu Taylor MD - 02/02/2012 2:50 PM EDT 51 yo woman s/p recent laser OS for DR with a minimal amount of inferior lid/cheek edema on left with no warmth or erythema. Her findings are consistent with her recent treatment. Reassurance given. documented in this encounter Nursing Notes * 02/02/2012 3:00 PM EDT >> LULU TAYLOR MD [facility] Feb 02, 2012 2:23 PM 51 yo woman with DR s/p laser OS in the past who reports one week history of puffiness under her left eye. She denies redness or pain, it's just more puffy and tooth ache. Her last laser OS was 01/20/12. >> SEA Mckenzie [facility] Feb 02, 2012 2:09 PM Pt states red spot LLL area and swelling since last Mon01/25/12, pt states it has not change for the worse or better. Pt has tried warm compresses Pt states a dull tooth ache around the whole OS since Mon01/25/12, pt is taking Tylenol (some relief with the Tylenol) Pt had PRP done on OS on (monday01/20/12) by Dr. Vega No problems with OD Pt is a DM (34 years) documented in this encounter Plan of Treatment Upcoming Encounters Date Type Department Care Team (Late st Contact Info) Description 12/19/2023 1:00 PM EDT Tech [place] [address] Marguerite Macias 12/19/2023 3:00 PM EDT Office Visit [place] [address] Gardenia Golden, [facility]AR[facility] [place] [place] [address] 01/29/2024 1:[address] [place] [address] César Escobar MD [facility] [place] [address] 01/29/2024 2:30 PM EDT Office Visit [place] [address] César Escobar MD [facility] [place] [address] documented as of this encounter Visit Diagnoses Diagnosis PDR (proliferative diabetic retinopathy)- Primary Type II or unspecified type diabetes mellitus with ophthalmic manifestations, not stated as uncontrolled documented in this encounter Care Teams Vice President Business & Corporate Development Relationship Specialty Start Date End Date Shirley Yu MD [address] [place] [address] PCP - General 03/02/10 10/19/14 documented as of this encounter
--- OUTSIDE RECORDS SUMMARY | 2023-12-13 18:32 | XMS_ITS | Encounter Summary ---
Author Organization [facility] [place] [address] Care Team Providers Care Replenishment Specialist Name Role Phone Shirley Yu MD Primary Care Provider [phone] Reason for Visit * Reason Comments Follow-up The patient presents for evaluation of her proliferative diabetic retinopathy. HORTENCIA Moss Eye Problem shared pt with dr. lucius miller Encounter Details Date Type Department Care Team (Late st Contact Info) Description 06/05/2012 10:30 AM EST [place] [address] Timothy Vega MD [facility] [place] [address] Proliferative diabetic retinopathy, left eye (Primary Dx); Moderate nonproliferative diabetic retinopathy of right eye [...] Progress Notes * Timothy Vega MD - 06/05/2012 9:14 PM EST The patient demonstrates progression of nonproliferative diabetic retinopathy. Follow carefully. Low threshold for initiating early PRP laser treatment The patient is undergone laser treatment in the left eye but this appears to be incomplete. The patient elects to return in several weeks time for PRP laser with block. A very thorough and careful review of the risks and benefits of the block and laser were carefully reviewed including but not limited to diplopia, pain and other related issues. Fortunately, she had family care for support and to understand all the issues involved as well as the critical need for panretinal laser treatment in the left eye and for close monitoring of the right eye. The critical importance of blood sugar control other issues were carefully defined. Return here in 3-6 weeks. documented in this encounter Plan of Treatment Upcoming Encounters Date Type Department Care Team (Late st Contact Info) Description 12/19/2023 1:00 PM EDT Tech Visit Vascular Lab at [place] [id number] Marguerite Macias 12/19/2023 3:00 PM EDT Office [place] [address] Gardenia Golden, [facility] [place] [address] 01/29/2024 1:[address] [place] [address] César Escobar MD [facility] [place] [address] 01/29/2024 2:30 PM EDT Office [place] [address] César Escobar MD [facility] [place] [address] documented as of this encounter Visit Diagnoses Diagnosis Proliferative diabetic retinopathy, left eye- Primary Type II or unspecified type diabetes mellitus with ophthalmic manifestations, not stated as uncontrolled Moderate nonproliferative diabetic retinopathy of right eye Type II or unspecified type diabetes mellitus with ophthalmic manifestations, not stated as uncontrolled documented in this encounter Care Teams Replenishment Specialist Relationship Specialty Start Date End Date Shirley Yu MD [address] [place] [address] PCP - General 03/02/10 10/19/14 documented as of this encounter
--- OUTSIDE RECORDS SUMMARY | 2023-12-13 18:33 | XMS_ITS | Encounter Summary ---
Author Organization [facility] Address [address] [place] [address] Care Team Providers Care Psychotherapist Social Worker Name Role Phone Shirley Yu MD Primary Care Provider [phone] Encounter Details Date Type Department Care Team (Late st Contact Info) Description 09/05/2019 Lab Requisition [facility] Pathology & Laboratory Medicine - [facility] [address] [place] [address] Outr Resulting Lab, Provider Social History Tobacco Use Types Packs/Day Years Used Date Smoking Tobacco: Every Day Smokeless Tobacco: Never Sex and Gender Information Value Date Recorded Sex Assigned at Not on file Gender Identity Female 11/24/2021 14:08 EDT Sexual Orientation Not on file documented as of this encounter Functional Status Functional Status Response Date of Assess ment Because of a physical, menta l, or emotional condition, does this person have difficulty doing errands alone such as visiting a doctor's office or shopping? No 12/08/2017 Cognitive Status Response Date of Assessm ent Because of a physical, menta l, or emotional condition, does this person have serious difficulty concentrating, remembering, or making decisions? Yes 12/08/2017 documented as of this encounter Plan of Treatment Not on file documented as of this encounter Procedures Procedure Name Priority Date/Time Associated Diagnosis Comments PTH INTACT Routine 09/05/2019 13:47 EDT documented in this encounter Results * (ABNORMAL) PTH INTACT (09/05/2019 13:47 EDT) Intact PTH 134(H) 19 - 88 pg/mL 09/06/2019 12:33 EDT [facility] Blood VENOUS BLOOD / Unknown 09/05/2019 13:47 EDT 09/05/2019 21:09 EDT Provider Outr Resulting Lab CHEMISTRY & BLOOD GAS ORDERABLES [facility] [address] [place] [address] documented in this encounter Visit Diagnoses Not on filedocumented in this encounter Additional Health Concerns Infection Onset Date Last Indicated Resolved Time COVID-19 04/27/2021 04/27/2021 05/17/2021 22:1 7 EST documented as of this encounter Care Teams Psychotherapist Social Worker Relationship Specialty Start Date End Date Shirley Yu MD [address] [place] [address] PCP - General 06/14/16 documented as of this encounter
--- OUTSIDE RECORDS SUMMARY | 2023-12-13 18:33 | XMS_ITS | Encounter Summary ---
Author Organization [facility] Address [address] [place] [address] Care Team Providers Care Spinner Frame Name Role Phone Shirley Yu MD Primary Care Provider [phone] Reason for Visit * Reason Comments Medications Refill Encounter Details Date Type Department Care Team (Late st Contact Info) Description 06/21/2023 Refill [facility] Endocrinology [address] [place] [address] Olivia Mayorga NP [address] [facility] [address] [place] [address] Medications Refill Social History Tobacco Use Types Packs/Day Years Used Date Smoking Tobacco: Former Cigarettes Q uit: 2017 Smokeless Tobacco: Never Alcohol Use Standard Drinks/Week Comments Yes 0 (1 standard drink = 0.6 oz pure alcohol) 1 drink 2x a week: peach whisky with diet ornage soda Interpersonal Safety Answer Date Record ed Physically Hurt Never 11/10/2019 Verbally Threaten Not on file 11/10/2019 Sex and Gender Information Value Date Recorded [...] Yes 12/08/2017 documented as of this encounter Ordered Prescriptions Prescription Sig Dispensed Refills Start Date End Da te levothyroxine (SYNTHROID) 175 mcg tabletIndications:Acquired hypothyroidism TAKE ONE TABLET BY MOUTH EVERY DAY 90 Tablet 06/21/2023 09/19/2023 documented in this encounter Miscellaneous Notes * Telephone Encounter - Lindsay Lomeli RN - 06/21/2023 0956 EDT Pharmacy requesting refill levothyroxine 175 mcg. Last labs and ofc visit was Apr 2022. 90 day supply e-scribed. Please call pt and have her schedule f/u appt for DM, Hypothyroid, and get blood drawnprior to her appt. Labs ordered. documented in this encounter Plan of Treatment Scheduled Orders Name Type Priority Associated Diagnoses Orde r Schedule COMPREHENSIVE METABOLIC PANEL (CMP) Lab Routine Type 1 diabetes mellitus with hyperglycemia ([facility]) Expected: 07/22/2023 (Approximate), Expires: 06/20/2024 URINE [id number] RATIO (ACR) Lab Routine Type 1 diabetes mellitus with hyperglycemia ([facility]) Expected: 07/22/2023 (Approximate), Expires: 06/20/2024 THYROID CASCADE Lab Routine Acquired hypothyroidism Expected: 07/22/2023 (Approximate), Expires: 06/20/2024 documented as of this encounter Visit Diagnoses Diagnosis Type 1 diabetes mellitus with hyperglycemia ([facility])- Primary Type I (juvenile type) diabetes mellitus without mention of complication, not stated as uncontrolled Acquired hypothyroidism Unspecified hypothyroidism documented in this encounter Discontinued Medications Medication Sig Discontinue Reason Start Date End Da te levothyroxine (SYNTHROID) 175 mcg tablet TAKE ONE TABLET BY MOUTH EVERY DAY 02/27/2023 06/21/2023 documented as of this encounter Care Teams Spinner Frame Relationship Specialty Start Date End Date Shirley Yu MD [address] [place] [address] PCP - General 06/14/16 documented as of this encounter
--- OUTSIDE RECORDS SUMMARY | 2023-12-13 18:33 | XMS_ITS ---
[place] [address] Care Team Providers Care Passenger Coach Driver Name Role Phone Shirley Yu MD Primary Care Provider [phone] Transplant Episode Pancreas Candidate [facility] ([place], [place]) [facility] Evaluation began on 10/28/2014 Marked as Not a Candidate on 11/10/2014 Reason: Not a Candidate Pancreas CoordinatorSyjasen Neville RN Phone: N/A Fax: N/A Email: N/A Care Team Name Role Phone Fax Email Tamiko Neville RN Pancreas Coordinator N/A N/A N/A Events Pre-Transplant Referred: 08/22/2014 Evaluation began: 10/28/2014 Committee: 10/31/2014
--- OUTSIDE RECORDS SUMMARY | 2023-12-13 18:33 | XMS_ITS | Encounter Summary ---
Author Organization [facility] Address [address] [place] [address] Care Team Providers Care Soaping Department Supervisor Name Role Phone Shirley Yu MD Primary Care Provider [phone] Encounter Details Date Type Department Care Team (Late st Contact Info) Description 04/28/2021 Lab Requisition [facility] Pathology & Laboratory Medicine - [facility] [address] [place] [address] Outr Resulting Lab, Provider Social History Tobacco Use Types Packs/Day Years Used Date Smoking Tobacco: Every Day Smokeless Tobacco: Never Interpersonal Safety Answer Date Record ed Physically [...] Procedure Name Priority Date/Time Associated Diagnosis Comments ZZCOVID-19 TEST [facility] PCR Today 04/27/2021 16:20 EST COVID-19 TESTING Routine 04/27/2021 16:2 0 EST documented in this encounter Results * COVID-19 TEST [facility] PCR (04/27/2021 16:20 EST) Swab 04/27/2021 16:2 0 EST 04/28/2021 17:28 EST Provider Outr Resulting Lab MICROBIOLOGY - GENERAL ORDERABLES Performing Organization Address [facility] Co de Phone Number [facility] [address] [place] [address] * (ABNORMAL) COVID-19 TESTING (04/27/2021 16:20 EST) COVID-19 rt-PCR Result Positive( AA) Negative 04/29/2021 10:59 EST [facility] Comment: This test has not been FDA cleared or approved. This test has been authorized by FDA under an EUA for use by authorized laboratories. This test has been authorized only for detection of nucleic acid from 2019-nCoV, not for any other viruses or pathogens. This test is only authorized for the duration of the declaration that circumstances exist justifying the authorization of emergency use of in vitro diagnostic tests for detection and/or diagnosis of 2019-nCoV under section 564(b)(1) of Act, 21 U.S.C ?? 360bbb-3(b) (1), unless the authorization is terminated or revoked sooner. Testing was performed using the isidra SARS-CoV-2 assay ([employer] on the Isidra 6800 System Performing Lab Isidra [address] [facility] 04/29/2021 10:59 EST [facility] Swab 04/27/2021 16:2 0 EST 04/28/2021 17:28 EST Provider Outr Resulting Lab MICROBIOLOGY - GENERAL ORDERABLES Performing Organization Address [facility]/ZIP Co de Phone Number [facility] [address] [place] [address] documented in this encounter Visit Diagnoses Not on filedocumented in this encounter Additional Health Concerns Infection Onset Date Last Indicated Resolved Time COVID-19 04/27/2021 04/27/2021 05/17/2021 22:1 7 EST documented as of this encounter Care Teams Soaping Department Supervisor Relationship Specialty Start Date End Date Shirley Yu MD [address] [place] [address] PCP - General 06/14/16 documented as of this encounter
--- OUTSIDE RECORDS SUMMARY | 2023-12-13 18:33 | XMS_ITS | Encounter Summary ---
Author Organization [facility] Address [address] [place] [address] Care Team Providers Care Blast Furnace Helper Name Role Phone Shirley Yu MD Primary Care Provider [phone] Encounter Details Date Type Department Care Team (Late st Contact Info) Description 01/06/2022 Lab Requisition [facility] Pathology & Laboratory Medicine - [facility] [address] [place] [address] Outr Resulting Lab, Provider Social History Tobacco [...] Procedure Name Priority Date/Time Associated Diagnosis Comments CORTISOL Routine 01/06/2022 11:45 EDT documented in this encounter Results * CORTISOL (01/06/2022 11:45 EDT) Cortisol 18 See Note ug/dL 01/06/2022 19:02 EDT [facility] Comment: NOTE: Reference Ranges (from OCD IFU): Collected Before 10:00 AM: ??4 - 23 ug/dL Collected After 5:00 PM: ?2 - 14 ug/dL The results of this assay can be falsely elevated due to the consumption of Biotin. Blood VENOUS BLOOD / Unknown 01/06/2022 11:45 EDT 01/06/2022 18:17 EDT Provider Outr Resulting Lab CHEMISTRY & BLOOD GAS ORDERABLES Performing Organization Address City/State/[facility] Co de Phone Number [facility] [address] [place] [address] documented in this encounter Visit Diagnoses Not on filedocumented in this encounter Care Teams Blast Furnace Helper Relationship Specialty Start Date End Date Shirley Yu MD [address] [place] [address] PCP - General 06/14/16 documented as of this encounter
--- OUTSIDE RECORDS SUMMARY | 2023-12-13 18:33 | XMS_ITS | Encounter Summary ---
Author Organization [facility] Address [address] [place] [address] Care Team Providers Care Leader Tier Name Role Phone Shirley Yu MD Primary Care Provider [phone] Reason for Visit * Reason Comments Medications Refill Encounter Details Date Type Department Care Team (Late st Contact Info) Description 11/26/2023 Refill [facility] Endocrinology [address] [place] [address] Olivia Mayorga, FLAT IRONER [address] [facility] [address] [place] [address] Medications Refill Social History Tobacco [...] Yes 12/08/2017 documented as of this encounter Miscellaneous Notes * Telephone Encounter - Lindsay Lomeli RN - 11/27/2023 7674 EDT Levothyroxine refill refused; needs appt. documented in this encounter Plan of Treatment Not on file documented as of this encounter Visit Diagnoses Diagnosis Acquired hypothyroidism- Primary Unspecified hypothyroidism documented in this encounter Care Teams Leader Tier Relationship Specialty Start Date End Date Shirley Yu MD [address] [place] [address] PCP - General 06/14/16 documented as of this encounter
--- OUTSIDE RECORDS SUMMARY | 2023-12-13 18:33 | XMS_ITS | Referral Summary ---
Author Organization [facility] Address [address] [place] [address] Care Team Providers Care Rn Clinical Review Name Role Phone Shirley Yu MD Primary Care Provider Encounters Date Type Department Care Team Description 11/29/2023 Refill [facility] Endocrinology [address] [place] [address] Olivia Mayorga, [employer] OFF[employer]ER Medications Refill 11/26/2023 Refill [facility] Endocrinology [address] [place] [address] Olivia Mayorga, [employer] OFF[employer]ER Medications Refill 10/27/2023 Refill [facility] Endocrinology [address] [place] [address] Olivia Mayorga, [employer] OFFICER Medications Refill 10/09/2023 Refill [facility] Endocrinology [address] [place] [address] Olivia Mayorga, [employer] OFFICER Medications Refill 09/18/2023 Refill [facility] Endocrinology [address] [place] [address] Olivia Mayorga, [employer] OFF[employer]ER Medications Refill from Last 3 Months Allergies Active Allergy Reactions Criticality Noted Date Comments Penicillins Other (See Comments) 12/08/2017 As a child, not sure of reaction Unknown Sulfa (Sulfonamide Antibiotics) Other (See Comments) High 12/08/2017 Renal failure Other reaction(s): Other (See Comments) Renal failure, ??bleeding Trimethoprim 06/22/2019 Medications Medication Sig Dispensed Refills Start Date End Date Status pantoprazole (PROTONIX) 40 mg tablet Take 40 mg by mouth daily. Active losartan (COZAAR) 100 mg tablet Take 100 mg by mouth daily. Active citalopram (CELEXA) 20 mg tablet Take 20 mg by mouth daily. Active aspirin chewable 81 mg tablet Take 81 mg by mouth daily. Active magnesium oxide (MAG-OX) 400 mg (241.3 mg magnesium) tablet Take 250 mg by mouth daily. Active dabigatran etexilate (PRADAXA) 150 mg capsule capsule Take 150 mg by mouth 2 times daily. Active Blood-Glucose Transmitter (DEXCOM G6 TRANSMITTER) device by [facility] (non-drug; combo route) route. Active Blood-Glucose Sensor (DEXCOM G6 SENSOR) device by [facility] (non-drug; combo route) route. Active albuterol (ACCUNEB) 2.5 mg /3 mL (0.083 %) nebulizer solution Take 2.5 mg by nebulization 3 times daily. Active chlorthalidone (HYGROTON) 25 mg tablet Take 25 mg by mouth daily. Active ferrous gluconate (FERGON) 324 mg (38 mg iron) tablet Take 324 mg by mouth daily with breakfast. Active cholecalciferol, Vitamin D3, 25 mcg (1,000 unit) tablet Take 2,000 Units by mouth daily. Active ONETOUCH ULTRA TEST test strips TEST 4 TIMES DAILY 10/29/2021 Activ e oxygen-air delivery systems ([facility]) by mis (non-drug; combo route) route. Active insulin aspart U-100 (NOVOLOG) 100 unit/mL injection Inject into the skin daily. Via insulin pump Active Infusion Set for Insulin Pump infusion set by [facility] (non-drug; combo route) route. Quickset 9mm, 23 inch Active nitroglycerin (NITROSTAT) 0.4 mg SL tablet 02/17/2022 Active insulin glargine (LANTUS SOLOSTAR/SEMGLEE) 100 unit/mL (3 mL) injection pen Inject 20 Units into the skin once daily. 15 mL 2 02/18/2022 Active rosuvastatin 5 mg capsule, sprinkle 0 Refill(s) 01/21/2022 Active levothyroxine (TIROSINT) 150 mcg capsule 0 Refill(s) 01/21/2022 Active carvediloL (COREG) 6.25 mg tablet Take 1 Tablet by mouth daily. 30 Tablet 04/22/2022 Active levothyroxine (SYNTHROID) 25 mcg tabletIndications:Ac quired hypothyroidism TAKE ONE TABLET BY MOUTH TWICE WEEKLY 8 Tablet 10/09/2023 Active levothyroxine (SYNTHROID) 175 mcg tabletIndications:Ac quired hypothyroidism TAKE ONE TABLET BY MOUTH EVERY DAY. NEEDS LABS AND VISIT BEFORE MORE REFILLS 30 Tablet 10/27/2023 Active Active Problems Problem Noted Date Diagnosed Date Insulin pump in place 12/24/2021 Long-term insulin use ([facility]) 12/24/2021 Degenerative disc disease, lumbar 10/28/2021 Type 1 diabetes mellitus ([facility]) 10/28/2021 Last Assessment & Plan: Controlled A1C 6.8 Congratulated on successful changes!! Adjust ICR at lunch to give more insulin, adjust correction overnight to prevent lows. Added time slot for snack at night to give less insulin with bolus. Adjusted basal overnight to prevent lows. Keep up good work to bolus BEFORE eating and using bolus wizard! Work on NOT suspending pump when having lower glucose readings, reach out if this is happening! Only input 120-150 units into pump to 'force' change infusion set every 3 days! Continue with dexcom CGM. Call tandem to see if able to switch pumps. Keep up with daily hydration, balanced meals and activity daily. Follow-up in 2-3 months or sooner with concerns. [facility] customer service: option 2 to start pump. Call to make eye exam Anemia 10/28/2021 Lung nodule 10/28/2021 Obstructive sleep apnea 10/28/2021 Renal insufficiency 10/28/2021 Elevated liver enzymes 10/28/2021 COPD (chronic obstructive pulmonary disease) ([facility]) 10/28/2021 Lopez's esophagus 10/28/2021 Depression 10/28/2021 Hypothyroidism 10/28/2021 Last Assessment & Plan: Labs today. HTN (hypertension) 10/28/2021 Last Assessment & Plan: BP elevated. Has been out of coreg for 3 days d/t pharmacy issues. Sent 30 day supply to local pharmacy. Encouraged to reach out to PCP to resend script. Hyperlipidemia 10/28/2021 Last Assessment & Plan: Labs today. PVD (peripheral vascular disease) ([facility]) 10/09 History of common carotid artery stent placement 10/28/2021 Macular degeneration 10/28/2021 History of malignant melanoma 10/28/2021 History of tobacco use 10/28/2021 Social History Tobacco Use Types Packs/Day Years [...] 14:08 EDT Sexual Orientation Not on file Last Filed Vital Signs Vital Sign Reading Time Taken Comments Blood Pressure 164/74 04/22/2022 1349 EST Pulse 72 04/22/2022 1312 EST Temperature - - Respiratory Rate 18 04/22/2022 1312 EST Oxygen Saturation - - Inhaled Oxygen Concentration - - Weight 74.8 kg (165 lb) 04/22/2022 1312 EST Height 170.2 cm (5' 7) 04/22/2022 1312 EST Body Mass Index 25.84 04/22/2022 1312 EST Functional Status Functional Status Response Date of [...] concentrating, remembering, or making decisions? Yes 12/08/2017 Plan of Treatment Not on file Procedures Procedure Name Priority Date/Time Associated Diagnosis Comments LIPID PROFILE (INCLUDES CHOLESTEROL, TRIGLYCERIDES, HDL, LDL) Routine 04/22/2022 14:07 EST Type 1 diabetes mellitus with hyperglycemia (HCC-CMS) URINE [id number] NE RATIO (ACR) Routine 04/22/2022 14:07 EST Type 1 diabetes mellitus with hyperglycemia ([facility]) POCT HEMOGLOBIN A1C Routine 04/22/2022 Type 1 diabetes mellitus with hyperglycemia ([facility]) from Last 3 Months or Most Recently Relevant to Health Maintenance Results * (ABNORMAL) URINE [id number] RATIO (ACR) (04/22/2022 14:07 EST) Albumin, Urine >114.0 See Note mg/dL 2022 16:10 [facility] Comment: NOTE: Reference range not established Creatinine, Urine 50.2 See Note mg/dL 04/22/2022 16:10 [facility] Comment: NOTE: Reference range not established Lab Urine Albumin to Creatinine Ratio >2,271(H) <30 ??g/mg Creatinine 04/22/2022 16:10 [facility] Comment: Urine Albumin/Creatinine Ratio: Normal: <30 ug/mg Creatinine Moderately increased albuminuria: 30-300 ug/mg Creatinine Severley increased albuminuria: >300 ug/mg Creatinine Urine URINE / Unknown Urine Collect / Unknown 04/22/2022 14:07 EST 04/22/2022 14:36 EST Olivia Mayorga NP CHEMISTRY & BLOOD GAS ORDERABLES Performing Organization Address City/State/[facility] Co de Phone Number [facility] [address] [place] [address] * LIPID PROFILE (INCLUDES CHOLESTEROL, TRIGLYCERIDES, HDL, LDL) (04/22/2022 14:07 EST) Cholesterol 182 <200 mg/dL 04/22/2022 15:29 [facility] Comment:Note that therapeuti c goals will differ between patients based on cardiac risk factors and current medical therapy. HDL 145 >=50 mg/dL 04/22/2022 15:29 [facility] Comment:Note that therapeuti c goals will differ between patients based on cardiac risk factors and current medical therapy. LDL, Calculated <20 <160 mg/dL 15:29 [facility] Comment: Note that therapeutic goals will differ between patients based on cardiac risk factors and current medical therapy. Calculated LDL invalid (<20 mg/dL) Direct LDL measurement added by reflex. Triglyceride 91 <=150 mg/dL 04/22/2022 15:29 [facility] Comment:Note that therapeuti c goals will differ between patients based on cardiac risk factors and current medical therapy. Chol/HDL Ratio 1.3 See Note 04/22/2022 15:29 [facility] Comment: NOTE: Desirable Ratio = <4.1 Patient At Risk Ratio = >5.0(Males) ?>6.0(Females) Non HDL Cholesterol 37 <160 mg/dL 04/22/2022 15:29 [facility] Comment:Note that therapeuti c goals will differ between patients based on cardiac risk factors and current medical therapy. Blood VENOUS BLOOD / Unknown Venipuncture / Unknown 04/22/2022 14:07 EST 04/22/2022 14:51 EST Olivia Mayorga NP CHEMISTRY & BLOOD GAS ORDERABLES Performing Organization Address [facility] Co de Phone Number [facility] [address] [place] [address] * (ABNORMAL) POCT HEMOGLOBIN A1C (04/22/2022) Hemoglobin A1c, POC 6.8(A) 5.7 % [facility] POINT OF CARE Blood CAPILLARY BLOOD / Unknown 04/22/2022 Olivia Mayorga NP POINT OF CARE MARK T ORDERABLES [facility] POINT OF CARE from Last 3 Months or Most Recently Relevant to Health Maintenance Care Teams Rn Clinical Review Relationship Specialty Start Date End Date Shirley Yu MD [address] [place] [id number] PCP - General 06/14/16
--- OUTSIDE RECORDS SUMMARY | 2023-12-13 18:33 | XMS_ITS | Encounter Summary ---
Author Organization [facility] Address [address] [place] [address] Care Team Providers Care Distribution Agent Name Role Phone Shirley Yu MD Primary Care Provider [phone] Reason for Visit * Reason Comments Diabetes Encounter Details Date Type Department Care Team (Latest Contact Info) Description 02/18/2022 13:00 EST Office Visit [facility] Endocrinology [address] [place] [address] Olivia Mayorga NP [address] [facility] [address] [place] [address] Type 1 diabetes mellitus with hyperglycemia (HCC-CMS) (Primary Dx); Insulin pump in place; Long-term insulin use (HCC-CMS); Acquired hypothyroidism; Primary hypertension; Mixed hyperlipidemia Social History Tobacco Use Types Packs/Day Years [...] Sign Reading Time Taken Comments Blood Pressure 160/62 02/18/2022 1354 EST Pulse 68 02/18/2022 1317 EST Temperature - - Respiratory Rate 18 02/18/2022 1317 EST Oxygen Saturation - - Inhaled Oxygen Concentration - - Weight 73.8 kg (162 lb 12.8 oz) 02/18/2022 1317 EST Height 170.2 cm (5' 7) 02/18/2022 1317 EST Body Mass Index 25.5 02/18/2022 1317 EST documented in this encounter Functional Status Functional Status Response [...] Yes 12/08/2017 documented as of this encounter Patient Instructions * Patient Instructions* Olivia Mayorga NP - 02/18/2022 13:00 EST a1C 8.3 Adjust carb ratio to give less with breakfast and adjust correction factor to give less at breakfast and more at bedtime. Keep working on entering in Carbs and glucose with ALL MEALS!! Bolud 5-15 minutes BEFORE EATING. Change infusion set every 3 days, input 120 units into pump. Please do NOT change pump settings on own, call with concerns!! Continue with dexcom CGM. Keep up with daily hydration, balanced meals and activity. Follow-up in 2 months or sooner with concerns. Make visit when able to go over carb counting with TAMEKA Vaughn. Make eye exam when able. [facility] C7 Grouper service: option 2 to start pump. documented in this encounter Ordered Prescriptions Prescription Sig Dispensed Refills Start Date End Da te insulin glargine (LANTUS SOLOSTAR/SEMGLEE) 100 unit/mL (3 mL) injection pen Inject 20 Units into the skin once daily. 15 mL 2 02/18/2022 insulin pen needles 32G x 5/32 Use as directed daily. Brand: BD Ultra Fine Gali 100 Each 12 02/18/2022 02/18/2023 documented in this encounter Progress Notes * Kimberly Nichols RN - 02/18/2022 1315 EST medicare Needs [facility] (12/31/2020) Lab letter sent Lab Results Component Value Date UABCR 907 (H) 12/24/2021 HGBA1C 8.3 (A) 12/24/2021 * Olivia Mayorga NP - 02/18/2022 1300 EST Reason for Visit: DM follow-up PCP: Dr. Alberta Yu OTHER PROVIDERS: nephrology, [facility] Jennifer Snyder is a 61 y.o. female who presented to the clinic for a follow-up in [facility], with a history of DM for >40yrs. Hx of HTN, HLD, PVD, s/p PCI, MANISH on cpap, COPD, lung nodule, barretts esophagus, depression, hypothyroid. Lives in [place] [address] It [place] about [place] drive to here. Previously saw Endo at [facility]. Lives alone but in a duplex with her daughter. They have an intercom system. Daughter is on her dexcom share. Mentions having a stress test recently w/ PCP and noted to have issues on this to indicate having aprevious [place]. Will be seeing cardiology upcoming. Notes her right ankle/leg has been swollen for past couple weeks. Denies fall or trauma. Does have some feel SOB/heaviness in the morning, will dissipate as the day goes on, this has been ongoing forabout 1 mo now. Denies other CP/jaw or arm pain. Does lie flat on sides at night. Has lost 2# since our last visit. Random BG in clinic 143. Has not eaten lunch yet. Is trying to do better on entering in BG/carbs into pump. Feels she is unsure of carb count. TSH 27.62 Levothyroxine 175 mcg does take this first thing in the morning, 30 minutes before other food/medications. [facility] DM: no Recent A1C: 8.3 (12/2021) 6.9 (08/2021) Diabetic Medications: 770G pump w/ dexcom Current pump ~ 4 yrs. novolog TDD 30 in pump Current monitoring regimen: Frequency of monitoring? : dexcom Fasting range: Preprandial range: Postprandial range: Any episodes of hypoglycemia? no Cause of hypoglycemia? Nutrition Daily Recall: boluses after eating because she is unsure she can eat what she planned. Has been eating less. Not hungry/no appetite Lower carbs. Doesn't do enough in protein (stated) ?? Brunch: 11am: 1 toast or one of her own small muffins Supper: cereal or sandwich Snacks: 2 string cheese Beverages: not much water, drinks diet green tea, diluted, no etoh Activity: Takes care of 2 pot belly pigs, 2 dogs, cat, housework Diabetes Related Problems Eye exam current (within one year): NMD, [facility] Dr. Dominguez Provider: Last dental exam: overdue, has visit upcoming, has upper dentures CVD,PVD,CAD: HTN, HLD, s/p PCI Statin: rosuvastatin 10 mg, LDL 93 above goal 12/2021 Aspirin: yes ACEI/ARB: losartan 100 mg Prior visit with building contractor: TAMEKA Vaughn Foot care: self Comorbidities: Retinopathy: yes, hx of laser and injection tx Stable: Nephropathy/Kidney function: GFR 25 (08/2021) Lab Results Component Value Date CALCGFR 45 10/01/2007 MCR up to date? Lab Results Component Value Date Lab Urine Albumin to Creatinine Ratio 907 (H) 12/24/2021 Neuropathy: no Location: Stable: Review of Systems Constitutional: Negative. Eyes: Negative. Endocrine: Negative. Neurological: Negative. Physical Exam Vitals and nursing note reviewed. Constitutional: Appearance: Normal appearance. She is obese. HENT: Head: Normocephalic and atraumatic. Cardiovascular: Rate and Rhythm: Normal rate and regular rhythm. Pulses: Dorsalis pedis pulses are 1+ on the right side and 1+ on the left side. Posterior tibial pulses are 1+ on the right side and 1+ on the left side. Comments: Mild pitting edema on right ankle Pulmonary: Effort: Pulmonary effort is normal. Breath sounds: Normal breath sounds. Musculoskeletal: Cervical back: Normal range of motion and neck supple. Right lower leg: Edema present. Feet: Right foot: Protective Sensation: 3 sites tested. 3 sites sensed. Skin integrity: Skin integrity normal. Toenail Condition: Right toenails are normal. Left foot: Protective Sensation: 3 sites tested. 3 sites sensed. Skin integrity: Skin integrity normal. Toenail Condition: Left toenails are normal. Skin: General: Skin is warm and dry. Neurological: Mental Status: She is alert and oriented to person, place, and time. Psychiatric: Mood and Affect: Mood normal. Behavior: Behavior normal. Thought Content: Thought content normal. CGM INTERPRETATION Type of CGM: Dexcom 02/05-02/18/2022 Type of DM: I Diabetic Medications: novolog Indication for monitoring: hyper/hypoglycemia, insulin dosing Report Interpretation: Average glucose 190 mg/dL, standard deviation 55 TIR 43%, TAR 34%, TBR 1% Nocturnal glucose control: yes/no Post-prandial glucose excursions: yes Hypoglycemia incidence: no Other (exercise/activity): Hemoglobin A1c, POC Date Value Ref Range Status 12/24/2021 8.3 (A) 5.7 % Final Lab Results Component Value Date UABCR 907 (H) 12/24/2021 Lab Results Component Value Date BUN 32 (H) 10/01/2007 Jennifer Snyder is a 61 y.o. female who presented to the clinic for an initial consult in [facility], with a history of DM for > 40yrs. Problem List Items Addressed This Visit Endocrine/Metabolic Type 1 diabetes mellitus (HCC) - Primary Uncontrolled a1C 8.3 Adjust carb ratio to give less with breakfast and adjust correction factor to give less at breakfast and more at bedtime. Keep working on entering in Carbs and glucose with ALL MEALS!! Bolud 5-15 minutes BEFORE EATING. Change infusion set every 3 days, input 120 units into pump. Please do NOT change pump settings on own, call with concerns!! Continue with dexcom CGM. Keep up with daily hydration, balanced meals and activity. Follow-up in 2 months or sooner with concerns. Make visit when able to go over carb counting with TAMEKA Vaughn. Given tandem info to see when able to move pumps. Back up plan today. Make eye exam when able. Relevant Medications insulin glargine (LANTUS SOLOSTAR/SEMGLEE) 100 unit/mL (3 mL) injection pen Other Relevant Orders THYROID CASCADE Hypothyroidism Recheck labs in 1 month, will adjust pending dose. Continue levothyroxine 175 mcg daily. Relevant Orders THYROID CASCADE Insulin pump in place Long-term insulin use ([facility]) ([facility]) Cardiac/Vasculature HTN (hypertension) BP elevated on recheck. Check readings at home and bring to f/up with PCP for review. Call PCP regarding right foot edema and morning SOB. Hyperlipidemia LDL above goal <50 w/ CVD Recheck in 2-3 months with recent statin increase. Patient Goals: A1C <7% Exercise: 150-300 minutes of CV exercise/week. Handouts provided for ongoing self education I spent a total of 40 minutes on the date of this encounter meeting with the patient and reviewing documentation/coordinating care as described in the above note. No procedures were performed at the time of the visit. This does not include time reviewing CGM data. documented in this encounter Miscellaneous Notes * Assessment & Plan Note - Olivia Mayorga NP - 02/18/2022 1401 EST Associated Problem(s): Type 1 diabetes mellitus ([facility]) Uncontrolled a1C 8.3 Adjust carb ratio to give less with breakfast and adjust correction factor to give less at breakfast and more at bedtime. Keep working on entering in Carbs and glucose with ALL MEALS!! Bolud 5-15 minutes BEFORE EATING. Change infusion set every 3 days, input 120 units into pump. Please do NOT change pump settings on own, call with concerns!! Continue with dexcom CGM. Keep up with daily hydration, balanced meals and activity. Follow-up in 2 months or sooner with concerns. Make visit when able to go over carb counting with TAMEKA Vaughn. Given tandem info to see when able to move pumps. Back up plan today. Make eye exam when able. * Assessment & Plan Note - Olivia Mayorga NP - 02/18/2022 1358 EST Associated Problem(s): Hyperlipidemia LDL above goal <50 w/ CVD Recheck in 2-3 months with recent statin increase. * Assessment & Plan Note - Olivia Mayorga NP - 02/18/2022 1326 EST Associated Problem(s): Hypothyroidism Recheck labs in 1 month, will adjust pending dose. Continue levothyroxine 175 mcg daily. * Assessment & Plan Note - Olivia Mayorga NP - 02/18/2022 1326 EST Associated Problem(s): HTN (hypertension) BP elevated on recheck. Check readings at home and bring to f/up with PCP for review. Call PCP regarding right foot edema and morning SOB. documented in this encounter Plan of Treatment Not on file documented as of this encounter Visit Diagnoses Diagnosis Type 1 diabetes mellitus with hyperglycemia ([facility])- Primary Type I (juvenile type) diabetes mellitus without mention of complication, not stated as uncontrolled Insulin pump in place Insulin pump status Long-term insulin use ([facility]) Encounter for long-term (current) use of insulin Acquired hypothyroidism Unspecified hypothyroidism Primary hypertension Unspecified essential hypertension Mixed hyperlipidemia documented in this encounter Discontinued Medications Medication Sig Discontinue Reason Start Date End Da te rosuvastatin (CRESTOR) 5 mg tablet Take 5 mg by mouth daily. Abstraction 02/18/2022 dabigatran etexilate (PRADAXA) 75 mg capsule capsule TAKE ONE CAPSULE BY MOUTH TWICE A DAY 01/09/2022 02/18/2022 documented as of this encounter Historical Medications * This list may reflect changes made after this encounter. Medication Sig Dispensed Refills Start Date End Date nitroglycerin (NITROSTAT) 0.4 mg SL tablet 02/17/2022 dabigatran etexilate (PRADAXA) 75 mg capsule capsule TAKE ONE CAPSULE BY MOUTH TWICE A DAY 01/09/2022 02/18/2022 rosuvastatin (CRESTOR) 10 mg tablet 02/17/2022 04/22/2022 added in this encounter Orders Lab Orders Without Results Count Last Ordered D ate First Ordered Date THYROID CASCADE 1 02/18/2022 documented in this encounter Care Teams Distribution Agent Relationship Specialty Start Date End Date Shirley Yu MD [address] [place] [address] PCP - General 06/14/16 documented as of this encounter
--- OUTSIDE RECORDS SUMMARY | 2023-12-13 18:33 | XMS_ITS | Encounter Summary ---
Author Organization [facility] Address [address] [place] [address] Care Team Providers Care Associate Director Data & Analytics Name Role Phone Shirley Yu MD Primary Care Provider [phone] Encounter Details Date Type Department Care Team (Late st Contact Info) Description 04/22/2022 14:00 EST Phlebotomy Only [facility] - Outpatient Phlebotomy Drawing [address] [place] [address] Lab, [facility] [facility]le[facility] Type 1 diabetes mellitus with hyperglycemia ([facility]); Vitamin D deficiency; Acquired hypothyroidism; Primary hypertension; Mixed hyperlipidemia Social [...] Procedure Name Priority Date/Time Associated Diagnosis Comments LDL, DIRECT Today 04/22/2022 14:07 EST Type 1 diabetes mellitus with hyperglycemia (HCC-CMS) THYROID CASCADE Routine 04/22/2022 14:07 EST Type 1 diabetes mellitus with hyperglycemia (HCC-CMS) VITAMIN D (25,OH) Routine 04/22/2022 14: 07 EST Type 1 diabetes mellitus with hyperglycemia (HCC-CMS) Vitamin D deficiency URINE [id number] RATIO (ACR) Routine 04/22/2022 14:07 EST Type 1 diabetes mellitus with hyperglycemia (HCC-CMS) COMPLETE BLOOD COUNT AND DIFFERENTIAL Routine 04/22/2022 14:07 EST Type 1 diabetes mellitus with hyperglycemia (HCC-CMS) T4 FREE Today 04/22/2022 14:07 EST Type 1 diabetes mellitus with hyperglycemia (HCC-CMS) MAGNESIUM Routine 04/22/2022 14:07 EST Type 1 diabetes mellitus with hyperglycemia (HCC-CMS) HEMOGLOBIN A1C Routine 04/22/2022 14:07 EST Type 1 diabetes mellitus with hyperglycemia (HCC-CMS) VITAMIN B12 Routine 04/22/2022 14:07 EST Type 1 diabetes mellitus with hyperglycemia (HCC-CMS) CORTISOL Routine 04/22/2022 14:07 EST Type 1 diabetes mellitus with hyperglycemia (HCC-CMS) LIPID PROFILE (INCLUDES CHOLESTEROL, TRIGLYCERIDES, HDL, LDL) Routine 04/22/2022 14:07 EST Type 1 diabetes mellitus with hyperglycemia (HCC-CMS) COMPREHENSIVE METABOLIC PANEL (CMP) Routine 04/22/2022 14:07 EST Type 1 diabetes mellitus with hyperglycemia (HCC-CMS) documented in this encounter Results * T4 FREE (04/22/2022 14:07 EST) T4, Free 2.0 0.8 - 2.2 ng/dL 04/22/2022 17:24 EST [facility] Blood VENOUS BLOOD / Unknown Venipuncture / Unknown 04/22/2022 14:07 EST 04/22/2022 14:51 EST Olivia Mayorga STRATEGY ANALYST CHEMISTRY & BLOOD GAS ORDERABLES Performing Organization Address City/[facility]/ZIP Co de Phone Number [facility] [address] [place] [address] * LDL, DIRECT (04/22/2022 14:07 EST) Pathologist [facility] LDL, Direct 59 <160 mg/dL 04/22/2022 17:24 EST [facility] Comment: LDL, Direct Reference Ranges: Optimal: Less than 100 mg/dL Above Optimal: 100-129 mg/dL Borderline High: 130-159 mg/dL High: 160-189 mg/dL Very High: Greater than or equal to 190 mg/dL Blood VENOUS BLOOD / Unknown Venipuncture / Unknown 04/22/2022 14:07 EST 04/22/2022 14:51 EST Olivia Mayorga NP CHEMISTRY & BLOOD GAS ORDERABLES Performing Organization Address City/[facility] Co de Phone Number [facility] [address] [place] [address] * (ABNORMAL) URINE [id number] RATIO (ACR) (04/22/2022 14:07 EST) Pathologist [facility] Albumin, Urine >114.0 See Note mg/dL 2022 16:10 [facility] Comment: NOTE: Reference range not established Creatinine, Urine 50.2 See Note mg/dL 04/22/2022 16:10 [facility] Comment: NOTE: Reference range not established Lab Urine Albumin to Creatinine Ratio >2,271(H) <30 ??g/mg Creatinine 04/22/2022 16:10 [facility] Comment: Urine Albumin/Creatinine Ratio: Normal: <30 ug/mg Creatinine Moderately increased albuminuria: 30-300 ug/mg Creatinine Severley increased albuminuria: >300 ug/mg Creatinine Urine URINE / Unknown Urine Collect / Unknown 04/22/2022 14:07 EST 04/22/2022 14:36 EST Olivia Mayorga NP CHEMISTRY & BLOOD GAS ORDERABLES Performing Organization Address [facility] Co de Phone Number [facility] [address] [place] [address] * (ABNORMAL) HEMOGLOBIN A1C (04/22/2022 14:07 EST) Hemoglobin A1c 7.5(H) <5.7 % 04/25/2022 11:35 [facility] Comment: Glycemic Status References: Normal: ??<5.7% Pre-Diabetes: ??5.7% - 6.4% Diagnostic of Diabetes: ??> or = 6.5% (if confirmed) Est Avg Glucose 169 mg/dL 11:35 [facility] Comment:The eAG represents t he A1c result expressed as average glucose in mg/dL. Blood VENOUS BLOOD / Unknown Venipuncture / Unknown 04/22/2022 14:07 EST 04/22/2022 14:39 EST Olivia Mayorga NP CHEMISTRY & BLOOD GAS ORDERABLES Performing Organization Address [facility] Co de Phone Number [facility] [address] [place] [address] * (ABNORMAL) COMPLETE BLOOD COUNT AND DIFFERENTIAL (04/22/2022 14:07 EST) WBC 5.77 4.00 - 12.40 K/cmm 04/22/2022 14:42 EST [facility] RBC 4.26 3.86 - 5.04 M/cmm 04/22/2022 14:42 [facility] Hemoglobin 13.4 11.6 - 15.2 gm/dL 04/22/2022 14:42 [facility] HCT 41.0 34.9 - 44.4 % 04/22/2022 14:42 [facility] MCV 96 81 - 98 fl 04/22/2022 14:42 [facility] MCH 31.5 26.7 - 33.3 pg 04/22/2022 14:42 [facility] MCHC 32.7 32.1 - 35.9 gm/dL 04/22/2022 14:42 [facility] RDW-CV 12.9 <14.7 % 04/22/2022 14:42 [facility] RDW-SD 45.5 <50.4 fl 04/22/2022 14:42 [facility] PLT 212 141 - 377 K/cmm 04/22/2022 14:42 [facility] MPV 10.5 9.5 - 12.7 fl 04/22/2022 14:42 [facility] % Neutrophils 69.5 % 04/22/2022 14:42 [facility] % Lymphocytes 18.7 % 04/22/2022 14:42 [facility] % Monocytes 7.6 % 04/22/2022 14:42 [facility] % Eosinophils 3.1 % 04/22/2022 14:42 [facility] % Basophils 0.9 % 04/22/2022 14:42 [facility] % Immature Grans 0.2 % 04/22/19 14:42 [facility] Absolute Neutrophils 4.01 2.20 - 8.85 K/cmm 04/22/2022 14:42 [facility] Absolute Lymphocytes 1.08(L) 1.09 - 3.30 K/cmm 04/22/2022 14:42 [facility] Absolute Monocytes 0.44 0.10 - 0.80 K/cmm 04/22/2022 14:42 [facility] Absolute Eosinophils 0.18 0.03 - 0.61 K/cmm 04/22/2022 14:42 [facility] ABS Basophils 0.05 0.01 - 0.11 K/cmm 04/22/2022 14:42 [facility] Absolute Immature Grans 0.01 0.00 - 0.06 K/cmm 04/22/2022 14:42 [facility] Type of Differential: Auto 04/22/2022 14:42 [facility] Blood VENOUS BLOOD / Unknown Venipuncture / Unknown 04/22/2022 14:07 EST 04/22/2022 14:39 EST Olivia Mayorga STRATEGY ANALYST PACKAGES & DNA ME OBE ORDERABLES Performing Organization Address City/State/[facility] Co de Phone Number [facility] [address] [place] [address] * (ABNORMAL) COMPREHENSIVE METABOLIC PANEL (CMP) (04/22/2022 14:07 EST) Sodium 137 136 - 145 mmol/L 04/22/2022 15:16 [facility] Potassium 4.8 3.5 - 5.0 mmol/L 04/22/2022 15:16 [facility] Chloride 102 96 - 110 mmol/L 04/22/2022 15:16 [facility] CO2 Total 28 22 - 32 mmol/L 04/22/2022 15:16 [facility] Glucose 162(H) 70 - 100 mg/dL 04/22/2022 15:16 [facility] BUN 17 10 - 26 mg/dL 04/22/2022 15:16 [facility] Creatinine 1.37(H) 0.52 - 1.04 mg/dL 04/22/2022 15:16 [facility] eGFR 43(L) >60 mL/min/1.7 3m2 04/22/2022 15:16 [facility] Total Protein 6.1(L) 6.3 - 8.2 g/dL 04/22/2022 15:16 [facility] Albumin 3.5 3.4 - 4.9 g/dL 04/22/2022 15:16 [facility] Alkaline Phosphatase 130(H) 38 - 126 U/L 04/22/2022 15:16 [facility] AST 40 15 - 46 U/L 04/22/2022 15:16 [facility] ALT 23 <35 U/L 04/22/2022 15:16 [facility] Bilirubin, Total 0.9 <1.4 mg/dL 04/22/19 23 15:16 [facility] Calcium 8.6 8.5 - 10.5 mg/dL 04/22/2022 15:16 [facility] Albumin/Globulin Ratio 1.3 1.0 - 2.5 04/22/2022 15:16 [facility] Anion Gap 7 5 - 14 04/22/2022 15:16 [facility] Blood VENOUS BLOOD / Unknown Venipuncture / Unknown 04/22/2022 14:07 EST 04/22/2022 14:51 EST Olivia Mayorga STRATEGY ANALYST CHEMISTRY & BLOOD GAS ORDERABLES Performing Organization Address City/[facility] Co de Phone Number [facility] [address] [place] [address] * MAGNESIUM (04/22/2022 14:07 EST) Magnesium 1.9 1.7 - 2.8 mg/dL 04/22/2022 15:16 [facility] Blood VENOUS BLOOD / Unknown Venipuncture / Unknown 04/22/2022 14:07 EST 04/22/2022 14:51 EST Olivia Mayorga STRATEGY ANALYST CHEMISTRY & BLOOD GAS ORDERABLES Performing Organization Address City/[facility] Co de Phone Number [facility] [address] [place] [address] * CORTISOL (04/22/2022 14:07 EST) Cortisol 11 See Note ug/dL 04/22/2022 16:07 [facility] Comment: NOTE: Reference Ranges (from OCD IFU): Collected Before 10:00 AM: ??4 - 23 ug/dL Collected After 5:00 PM: ?2 - 14 ug/dL The results of this assay can be falsely elevated due to the consumption of Biotin. Blood VENOUS BLOOD / Unknown Venipuncture / Unknown 04/22/2022 14:07 EST 04/22/2022 14:51 EST Olivia Mayorga NP CHEMISTRY & BLOOD GAS ORDERABLES Performing Organization Address [facility] Phone Number [facility] [address] [place] [address] * (ABNORMAL) THYROID CASCADE (04/22/2022 14:07 EST) TSH 8.11(H) 0.47 - 4.68 mIU/L 04/22/2022 16:07 EST [facility] Blood VENOUS BLOOD / Unknown Venipuncture / Unknown 04/22/2022 14:07 EST 04/22/2022 14:51 EST Narrative [facility] - 04/22/2022 16:07 EST NOTE: The results of this assay can be falsely lowered due to the consumption of Biotin. Olivia Mayorga NP CHEMISTRY & BLOOD GAS ORDERABLES Performing Organization Address [facility] Phone Number [facility] [address] [place] [address] * VITAMIN B12 (04/22/2022 14:07 EST) Vitamin B12 392 211 - 911 pg/mL 04/22/2022 16:07 EST [facility] Blood VENOUS BLOOD / Unknown Venipuncture / Unknown 04/22/2022 14:07 EST 04/22/2022 14:51 EST Narrative [facility] - 04/22/2022 16:07 EST The results of this assay can be falsely elevated due to the consumption of Biotin. Olivia Mayorga NP CHEMISTRY & BLOOD GAS ORDERABLES Performing Organization Address [facility] de Phone Number [facility] [address] [place] [address] * (ABNORMAL) VITAMIN D (25,OH) (04/22/2022 14:07 EST) Pathologist [facility] 25OH Vitamin D Tot 28(L) 30 - 100 ng/mL 04/22/2022 16:07 [facility] Blood VENOUS BLOOD / Unknown Venipuncture / Unknown 04/22/2022 14:07 EST 04/22/2022 14:51 EST Olivia Mayorga NP CHEMISTRY & BLOOD GAS ORDERABLES [facility] [address] [place] [address] * LIPID PROFILE (INCLUDES CHOLESTEROL, TRIGLYCERIDES, HDL, LDL) (04/22/2022 14:07 EST) [facility] [place] [facility] Cholesterol 182 <200 mg/dL 04/22/2022 15:29 [facility] Comment:Note that therapeuti c goals will differ between patients based on cardiac risk factors and current medical therapy. HDL 145 >=50 mg/dL 04/22/2022 15:29 [facility] Comment:Note that therapeuti c goals will differ between patients based on cardiac risk factors and current medical therapy. LDL, Calculated <20 <160 mg/dL 15:29 [facility] Comment: Note that therapeutic goals will differ between patients based on cardiac risk factors and current medical therapy. Calculated LDL invalid (<20 mg/dL) Direct LDL measurement added by reflex. Triglyceride 91 <=150 mg/dL 04/22/2022 15:29 [facility] Comment:Note that therapeuti c goals will differ between patients based on cardiac risk factors and current medical therapy. Chol/HDL Ratio 1.3 See Note 04/22/2022 15:29 [facility] Comment: NOTE: Desirable Ratio = <4.1 Patient At Risk Ratio = >5.0(Males) ?>6.0(Females) Non HDL Cholesterol 37 <160 mg/dL 04/22/2022 15:29 EST [facility] Comment:Note that therapeuti c goals will differ between patients based on cardiac risk factors and current medical therapy. Blood VENOUS BLOOD / Unknown Venipuncture / Unknown 04/22/2022 14:07 EST 04/22/2022 14:51 EST Olivia Mayorga STRATEGY ANALYST CHEMISTRY & BLOOD GAS ORDERABLES Performing Organization Address City/State/[facility] Co de Phone Number [facility] [address] [place] [address] documented in this encounter Visit Diagnoses Diagnosis Type 1 diabetes mellitus with hyperglycemia ([facility]) Type I (juvenile type) diabetes mellitus without mention of complication, not stated as uncontrolled Vitamin D deficiency Unspecified vitamin D deficiency Acquired hypothyroidism Unspecified hypothyroidism Primary hypertension Unspecified essential hypertension Mixed hyperlipidemia documented in this encounter Care Teams Associate Director Data & Analytics Relationship Specialty Start Date End Date Shirley Yu MD [address] [place] [id number] PCP - General 06/14/16 documented as of this encounter
--- OUTSIDE RECORDS SUMMARY | 2023-12-13 18:33 | XMS_ITS | Encounter Summary ---
Author Organization [facility] Address [address] [place] [address] Care Team Providers Care Computer Systems Engineer Name Role Phone Shirley Yu MD Primary Care Provider [phone] Encounter Details Date Type Department Care Team (Latest Contact Info) Description 07/14/2022 Transcribe Orders [facility] - [facility] [address] [place] [address] Shirley Yu MD [address] [place] [place], [place] [id number] Loss of weight (Primary Dx) Social History Tobacco Use Types [...] as of this encounter Plan of Treatment Scheduled Orders Name Type Priority Associated Diagnoses Orde r Schedule COMPLETE BLOOD COUNT Lab Routine Loss of weight Ordered: 07/14/2022 documented as of this encounter Visit Diagnoses Diagnosis Loss of weight- Primary documented in this encounter Care Teams Computer Systems Engineer Relationship Specialty Start Date End Date Shirley Yu MD [address] [place] [address] PCP - General 06/14/16 documented as of this encounter
--- OUTSIDE RECORDS SUMMARY | 2023-12-13 18:33 | XMS_ITS | Clinical Summary ---
Author Organization [facility] Address [address] [place] [address] Care Team Providers Care Instrument Lens Grinder Name Role Phone Shirley Yu MD Primary Care Provider [phone] Allergies Active Allergy Reactions Criticality Noted Date [...] Blood-Glucose Transmitter (DEXCOM G6 TRANSMITTER) device by misc (non-drug; combo route) route. Active Blood-Glucose Sensor (DEXCOM G6 SENSOR) device by misc (non-drug; combo route) route. Active albuterol (ACCUNEB) [...] oxygen-air delivery systems (HORIZON NASAL CPAP SYSTEM MISC) by misc (non-drug; combo route) route. Active insulin aspart U-100 (NOVOLOG) 100 unit/mL injection Inject into the skin daily. Via insulin pump Active Infusion Set for Insulin Pump infusion set by misc (non-drug; combo route) route. Quickset 9mm, 23 [...] pump in place 12/24/2021 Long-term insulin use ([facility]) 12/24/2021 Degenerative disc disease, lumbar 10/28/2021 Type 1 diabetes mellitus ([facility]) 10/28/2021 Last Assessment & Plan: Controlled A1C [...] in 2-3 months or sooner with concerns. 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 Call to make eye exam Anemia 10/28/2021 Lung nodule 10/28/2021 Obstructive sleep apnea 10/28/2021 Renal insufficiency 10/28/2021 Elevated liver enzymes 10/28/2021 COPD (chronic obstructive pulmonary disease) ([facility]) 10/28/2021 Lopez's esophagus 10/28/2021 Depression 10/28/2021 Hypothyroidism 10/28/2021 Last Assessment & Plan: Labs today. HTN (hypertension) 10/28/2021 Last Assessment & Plan: BP elevated. Has been out of coreg for 3 days d/t pharmacy issues. Sent 30 day supply to local pharmacy. Encouraged to reach out to PCP to resend script. Hyperlipidemia 10/28/2021 Last Assessment & Plan: Labs today. PVD (peripheral vascular disease) ([facility]) 10/09 History of common carotid artery stent placement 10/28/2021 Macular degeneration 10/28/2021 History of malignant melanoma 10/28/2021 History of tobacco use 10/28/2021 Encounters Date Type Department Care Team Description 11/29/2023 Refill [facility] Endocrinology [address] [place] [id number] Olivia Mayorga, FICTION AND NONFICTION WRITER PROSE Medications Refill 11/26/2023 Refill [facility] Endocrinology [address] [place] [id number] Olivia Mayorga, FICTION AND NONFICTION WRITER PROSE Medications Refill 10/27/2023 Refill [facility] Endocrinology [address] [place] [address] Olivia Mayorga NP Medications Refill 10/09/2023 Refill [facility] Endocrinology [address] [place] [address] Olivia Mayorga NP Medications Refill 09/18/2023 Refill [facility] Endocrinology [address] [place] [address] Olivia Mayorga NP Medications Refill from Last 3 Months Surgical History Surgery Date Site/Laterality Comments HYSTERECTOMY CAROTID ARTERY STENTING Bilateral ROTATOR CUFF REPAIR Bilateral Medical History Medical History Date Comments History of blood transfusion Dermatologic disease melanoma Hypertension Chronic kidney disease Thyroid disease Cataract COPD (chronic obstructive pulmonary disease) ([facility]) 10/28/2021 Family History Medical History Relation Comments Hypertension Mother Relation Status Comments Father Mother Social History Tobacco Use Types Packs/Day [...] 14:08 EDT Sexual Orientation Not on file Obstetrics History Last Filed Vital Signs Vital Sign Reading Time Taken Comments Blood Pressure 164/74 04/22/2022 1349 EST Pulse 72 04/22/2022 1312 EST Temperature - - Respiratory Rate 18 04/22/2022 1312 EST Oxygen Saturation - - Inhaled Oxygen Concentration - - Weight 74.8 kg (165 lb) 04/22/2022 1312 EST Height 170.2 cm (5' 7) 04/22/2022 1312 EST Body Mass Index 25.84 04/22/2022 1312 EST Plan of Treatment Health Maintenance Due Date Last Done Comments Copd Action Plan 1960 Hepatitis C Screen 1960 Lung Function Test (Spirometry) 1960 RSV Immunization ( o r 60+ Years) (1 - 1-dose 60+ series) 2018 Eye Exam 12/08/2018 12/08/2017 Hemoglobin A1C (Ha1C) 10/20/2022 04/22/2022 , 04/22/2022, 12/24/2021 Foot Exam 04/22/2023 04/22/2022, 02/18/2022 Lipid Profile Screening (Cholesterol) 04/22/2023 Microalbumin/Creatinine Ratio 04/22/2023 04/22/2022, 12/24/2021 Fall Risk Screening 10/22/2023 COVID-19 Vaccine ( season) 2023 Procedures Procedure Name Priority Date/Time Associated Diagnosis Comments LIPID PROFILE (INCLUDES CHOLESTEROL, TRIGLYCERIDES, HDL, LDL) Routine 04/22/2022 14:07 EST Type 1 diabetes mellitus with hyperglycemia ([facility]) URINE [id number] NE RATIO (ACR) Routine 04/22/2022 14:07 EST Type 1 diabetes mellitus with hyperglycemia ([facility]) POCT HEMOGLOBIN A1C Routine 04/22/2022 Type 1 diabetes mellitus with hyperglycemia ([facility]) from Last 3 Months or Most Recently Relevant to Health Maintenance Results * (ABNORMAL) URINE [id number] RATIO (ACR) (04/22/2022 14:07 EST) Albumin, Urine >114.0 See Note mg/dL 2022 16:10 [facility] Comment: NOTE: Reference range not established Creatinine, Urine 50.2 See Note mg/dL 04/22/2022 16:10 [facility] Comment: NOTE: Reference range not established Lab Urine Albumin to Creatinine Ratio >2,271(H) <30 ??g/mg Creatinine 04/22/2022 16:10 [facility] Comment: Urine Albumin/Creatinine Ratio: Normal: <30 ug/mg Creatinine Moderately increased albuminuria: 30-300 ug/mg Creatinine Severley increased albuminuria: >300 ug/mg Creatinine Urine URINE / Unknown Urine Collect / Unknown 04/22/2022 14:07 EST 04/22/2022 14:36 EST Olivia Mayorga NP CHEMISTRY & BLOOD GAS ORDERABLES Performing Organization Address [facility] Co de Phone Number [facility] [address] [place] [address] * LIPID PROFILE (INCLUDES CHOLESTEROL, TRIGLYCERIDES, HDL, LDL) (04/22/2022 14:07 EST) Cholesterol 182 <200 mg/dL 04/22/2022 15:29 [facility] Comment:Note that therapeuti c goals will differ between patients based on cardiac risk factors and current medical therapy. HDL 145 >=50 mg/dL 04/22/2022 15:29 [facility] Comment:Note that therapeuti c goals will differ between patients based on cardiac risk factors and current medical therapy. LDL, Calculated <20 <160 mg/dL 15:29 [facility] Comment: Note that therapeutic goals will differ between patients based on cardiac risk factors and current medical therapy. Calculated LDL invalid (<20 mg/dL) Direct LDL measurement added by reflex. Triglyceride 91 <=150 mg/dL 04/22/2022 15:29 [facility] Comment:Note that therapeuti c goals will differ between patients based on cardiac risk factors and current medical therapy. Chol/HDL Ratio 1.3 See Note 04/22/2022 15:29 [facility] Comment: NOTE: Desirable Ratio = <4.1 Patient At Risk Ratio = >5.0(Males) ?>6.0(Females) Non HDL Cholesterol 37 <160 mg/dL 04/22/2022 15:29 [facility] Comment:Note that therapeuti c goals will differ between patients based on cardiac risk factors and current medical therapy. Blood VENOUS BLOOD / Unknown Venipuncture / Unknown 04/22/2022 14:07 EST 04/22/2022 14:51 EST Olivia Mayorga NP CHEMISTRY & BLOOD GAS ORDERABLES Performing Organization Address [facility] Co de Phone Number [facility] [address] [place] [address] * (ABNORMAL) POCT HEMOGLOBIN A1C (04/22/2022) Hemoglobin A1c, POC 6.8(A) 5.7 % [facility] POINT OF CARE Blood CAPILLARY BLOOD / Unknown 04/22/2022 Olivia Mayorga FICTION AND NONFICTION WRITER PROSE POINT OF CARE MARK T ORDERABLES [facility] POINT OF CARE from Last 3 Months or Most Recently Relevant to Health Maintenance Care Teams Instrument Lens Grinder Relationship Specialty Start Date End Date Shirley Yu MD [address] [place] [address] PCP - General 06/14/16
--- OUTSIDE RECORDS SUMMARY | 2023-12-13 18:33 | XMS_ITS | Encounter Summary ---
Author Organization [facility] Address [address] [place] [address] Care Team Providers Care Truck Sales Representative Name Role Phone Shirley Yu MD Primary Care Provider [phone] Encounter Details Date Type Department Care Team (Late st Contact Info) Description 10/15/[address] [facility] Pathology & Laboratory Medicine - [facility] [address] [place] [address] Outr Resulting Lab, Provider Social History Tobacco [...] Date/Time Associated Diagnosis Comments PTH INTACT Routine 10/15/2019 12:35 EDT documented in this encounter Results * (ABNORMAL) PTH INTACT (10/15/2019 12:35 EDT) Intact PTH 146(H) 19 - 88 pg/mL 10/16/2019 10:50 EDT [facility] Blood VENOUS BLOOD / Unknown 10/15/2019 12:35 EDT 10/15/2019 21:43 EDT Provider Outr Resulting Lab CHEMISTRY & BLOOD GAS ORDERABLES [facility] [address] [place] [address] documented in this encounter Visit Diagnoses Not on filedocumented in this encounter Additional Health Concerns Infection Onset Date Last Indicated Resolved Time COVID-19 04/27/2021 04/27/2021 05/17/2021 22:1 7 EST documented as of this encounter Care Teams Truck Sales Representative Relationship Specialty Start Date End Date Shirley Yu MD [address] [place] [address] PCP - General 06/14/16 documented as of this encounter
--- OUTSIDE RECORDS SUMMARY | 2023-12-13 18:33 | XMS_ITS | Encounter Summary ---
Author Organization [facility] Address [address] [place] [address] Care Team Providers Care Parliamentary Counsel Name Role Phone Shirley Yu MD Primary Care Provider [phone] Encounter Details Date Type Department Care Team (Latest Contact Info) Description 01/08/2018 22:09 EDT - 01/08/2018 23:59 EDT Hospital Encounter [address] [address] Unknown, Provider, Discharge Disposition: Auto Discharge Social History Tobacco Use Types Packs/Day Years [...] Yes 12/08/2017 documented as of this encounter Medications at Time of Discharge Medication Sig Dispensed Refills Start Date End Date aspirin chewable 81 mg tablet Take 81 mg by mouth daily. citalopram (CELEXA) 20 mg tablet Take 20 mg by mouth daily. dabigatran etexilate (PRADAXA) 150 mg capsule capsule Take 150 mg by mouth 2 times daily. losartan (COZAAR) 100 mg tablet Take 100 mg by mouth daily. magnesium oxide (MAG-OX) 400 mg (241.3 mg magnesium) tablet Take 250 mg by mouth daily. pantoprazole (PROTONIX) 40 mg tablet Take 40 mg by mouth daily. carvedilol (COREG) 12.5 mg tablet Take 12.5 mg by mouth 2 times daily. 10/28/2021 cilostazol (PLETAL) 100 mg tablet Take 100 mg by mouth 2 times daily. 12/06/2021 insulin lispro (HUMALOG) 100 unit/mL vial Inject into the skin as needed for High Blood Sugar (on insulin pump). 12/10/2021 levothyroxine (SYNTHROID) 125 mcg tablet Take 125 mcg by mouth daily. 12/06/2021 simvastatin (ZOCOR) 40 mg tablet Take 40 mg by mouth daily. 12/06/2021 documented as of this encounter Discharge Disposition Disposition Code Departure Means Destination Auto Discharge Home documented in this encounter Plan of Treatment Not on file documented as of this encounter Visit Diagnoses Not on filedocumented in this encounter Care Teams Parliamentary Counsel Relationship Specialty Start Date End Date Shirley Yu MD [address] [place] [address] PCP - General 06/14/16 documented as of this encounter
--- OUTSIDE RECORDS SUMMARY | 2023-12-13 18:33 | XMS_ITS | Encounter Summary ---
Author Organization [facility] Address [address] [place] [address] Care Team Providers Care Boxing And Pressing Supervisor Name Role Phone Shirley Yu MD Primary Care Provider Reason for Visit * Reason Comments Diabetes new CVE patient * Referral (Routine) - Authorization Not Required Specialty Diagnoses / Procedures [facility]erred To Contact Endocrinology Diagnoses Type 1 diabetes mellitus with unspecified diabetic retinopathy without macular edema ([facility]-CMS) Shirley Yu MD [address] [place] [address] [facility] [address] [place] [address] Referral ID Status Reason Start Date Expiration Date Visits Requested Visits Authorized [id number] Authorization Not Required 2 2 Encounter Details Date Type Department Care Team (Late st Contact Info) Description 12/06/2021 13:00 EDT Nurse Only [facility] [address] [place], [place] [address] Diana Vaughn, TAMEKA [address] [place] [address] Type 1 diabetes mellitus without complication (HCC-CMS) ([facility]) (Primary Dx) Social History Tobacco Use Types [...] Taken Comments Blood Pressure - - Pulse - - Temperature - - Respiratory Rate - - Oxygen Saturation - - Inhaled Oxygen Concentration - - Weight 77.1 kg (170 lb) 12/10/2021 1542 EDT Height 170.2 cm (5' 7) 12/10/2021 1542 EDT Body Mass Index 26.63 12/10/2021 154 EDT documented in this encounter Functional Status Functional [...] Yes 12/08/2017 documented as of this encounter Progress Notes * Diana Vaughn, TAMEKA - 12/06/2021 1300 EDT Diabetes Education Note New CVE patient Visit type: office Diagnosed with DM : DM1 many years. 40+ Latest A1c: 6.8% ROS: Checks Blood sugars: Dexcom SBGM results: Did not bring cell phone upstairs, it left with her ride. Unable to link today. Hypoglycemia: still aware but not until under 50. Lowest 42, usually early am. Highest 250 with stomach upset Current regimen: Medtronic Paradigm insulin pump, still in warranty. Novolog in pump. Has never been able to get it to link to clinic in past. Dexcom Diet Hx: boluses after eating because she is unsure she can eat what she planned. Has been eating less. Not hungry/no appetite Lower carbs. Doesn't do enough in protein (stated) Nereyda: 11am: 1 toast or one of her own small muffins Supper: cereal or sandwich Snacks: 2 string cheese Beverages: not much water, drinks diet green tea, diluted . Activity: Takes care of 2 pot belly pigs, 2 dogs, cat, housework Social: Lives alone but in a duplex with her daughter. They have an intercom system. Daughter is on her dexcom share. Education today: Info gathering/assessment Education Needed: Review of food/ bs logs Assessment: e10.9 Hx of current problem: Lives in [place] [address]. It is about [place] hour drive to here. She tells me she has always had her care at [facility] and [facility]. 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 It has been so long that now she would be a new patient, and they are currently not taking new patients. So she comes to us. Sounds like she has been eating less and has been self-adjusting her pump for lows in the night; reported as successful changes. Her biggest concerns are 1: being profusely diaphoretic when she eats.All diaphoresis is on her forehead and neck. It is so bad she is too embarrassed to eat out. 2: itchy left elbow area. No rash noted. Symptoms: none Copays: Has Medicare, no copays Uses [facility] in [facility] Stage of change: action/preparation. Motivation 10. Comprehension 10. Plan: Dexcom clarity invite sent. Next Visit: With endocrinology documented in this encounter Plan of Treatment Not on file documented as of this encounter Visit Diagnoses Diagnosis Type 1 diabetes mellitus without complication ([facility])- Primary Type I (juvenile type) diabetes mellitus without mention of complication, not stated as uncontrolled documented in this encounter Discontinued Medications Medication Sig Discontinue Reason Start Date End Da te levothyroxine (SYNTHROID) 125 mcg tablet Take 125 mcg by mouth daily. Dose adjustment 12/06/2021 simvastatin (ZOCOR) 40 mg tablet Take 40 mg by mouth daily. Alternate therapy 12/06/2021 cilostazol (PLETAL) 100 mg tablet Take 100 mg by mouth 2 times daily. Therapy completed 12/06/2021 dilTIAZem (CARDIZEM) 30 mg tablet Take 30 mg by mouth 3 times daily. Therapy completed 12/06/2021 insulin lispro (HUMALOG) 100 unit/mL vial Inject into the skin as needed for High Blood Sugar (on insulin pump). Alternate therapy 12/10/2021 documented as of this encounter Historical Medications * This list may reflect changes made after this encounter. Medication Sig Dispensed Refills Start Date End Date Infusion Set for Insulin Pump infusion set by misc (non-drug; combo route) route. Quickset 9mm, 23 inch insulin aspart U-100 (NOVOLOG) 100 unit/mL injection Inject into the skin daily. Via insulin pump oxygen-air delivery systems (H[employer]ON NASAL CPAP SYSTEM [facility]) by misc (non-drug; combo route) route. ONETOUCH ULTRA TEST test strips TEST 4 TIMES DAILY 10/29/2021 added in this encounter Care Teams Boxing And Pressing Supervisor Relationship Specialty Start Date End Date Shirley Yu MD [address] [place] [address] PCP - General 06/14/16 documented as of this encounter
--- OUTSIDE RECORDS SUMMARY | 2023-12-13 18:33 | XMS_ITS | Encounter Summary ---
Author Organization [facility] [place] [address] Care Team Providers Care Inside Horticultural Specialty Grower Name Role Phone Shirley Yu MD Primary Care Provider [phone] Encounter Details Date Type Department Care Team (Late Contact Info) Description 08/11/2010 [place] [id number] Bridget Avendano MD [facility] [place] [address] Social History Tobacco Use Types Packs/Day Years Used Date Smoking Tobacco: Some Days Comments:4 sometimes Alcohol Use Standard Drinks/Week Comments [...] EDT Tech Visit [place] [phone] Marguerite Macias 12/19/2023 3:00 PM EDT Office [place] [address] Gardenia Golden APRN [facility] [place] [address] 01/29/2024 1:[address] [place] [place] [address] César Escobar MD [facility] [place] [address] 01/29/2024 2:30 PM EDT Office [place] [address] César Escobar MD [facility] [place] [address] documented as of this encounter Procedures Procedure Name Priority Date/Time Associated Diagnosis Comments SHEFALI, LEGS, MULTIPLE LEVELS Routine 08/11/2010 1:50 PM EDT BYPASS GRAFT ASSESSMENT, BILATERAL Routine 08/11/2010 1:30 PM EDT CAROTID DUPLEX, BILATERAL Routine 08/11/2010 1:30 PM EDT documented in this encounter Results * SHEFALI, LEGS, MULTIPLE LEVELS (08/11/2010 1:50 PM EDT) VB Text Report Department: Vascular Surgery Lab Patient: [id number] (JENNIFER WINTERS) CPT Code: 79200 ICD-9: 440.20 Referring Physician: BRIDGET AVENDANO Indication: f/u right fem-pop bypass graft Diabetes mellitus: yes ICD9 Diagnosis Code: 440.20 Definitions: ??SHEFALI = Ankle / Brachial Systolic Pressure Index, TBI = Toe / Brachial Systolic Pressure Index Findings: Right ?Pressure (mmHg) ?? SHEFALI ??Waveform ?? TBI Brachial Artery ?153 Dorsalis Pedis (Ankle) Artery ?132 ?0.86 ??Biphasic Posterior Tibial (Ankle) Artery ??142 ?0.93 ??Biphasic Great Toe ?104 ?0.68 Left ? Pressure (mmHg) ?? SHEFALI ??Waveform ?? TBI Brachial Artery ?150 Dorsalis Pedis (Ankle) Artery ?84 ? 0.55 ??Biphasic Posterior Tibial (Ankle) Artery ??97 ? 0.63 ??Biphasic Great Toe ?58 ? 0.38 Interpretation: RIGHT: Mild lower extremity arterial occlusive disease. No significant change compared to previous exam done on 02/10/10. LEFT: Moderate lower extremity arterial occlusive disease. No significant change compared to previous exam done on 02/10/10. Previous ABIs with change from previous value: [...] (-0.11) 0.58 (-0.06) 0.61 (-0.08) 0.37 (-0.09) Current Exam 0.86 (-0.07) 0.93 (-0.03) 0.68 (+0.07) 0.55 (-0.03) 0.63 (+0.02) 0.38 (+0.01) Signed by BRIDGET AVENDANO on 2010-08-11 03:44:16 PM VASCU[facility] VB Text Report End of Report VASCU[facility] 08/11/2010 1:50 PM EDT Bridget Avendano MD VASCULAR ORDERABLES [facility] * BYPASS GRAFT ASSESSMENT, BILATERAL (08/11/2010 1:30 PM EDT) VB Text Report Department: Vascular Surgery Lab Patient: [id number] (JENNIFER WINTERS) CPT Code: 68324 ICD-9: 440.20 Referring Physician: BRIDGET AVENDANO Indication: f/u right fem-pop bypass graft ICD9 Diagnosis Code: 440.20 Findings: Segment ?PSV (cm/s) ??EDV (cm/s Inflow Artery ?198 ? 29 Inflow Anastomosis ? 168 ? 17 Graft, ??Proximal ? 281 ? 24 Graft, Mid ?99 ?0 Graft, Distal ? 98 ?0 Outflow Anastomosis ? 75 ?0 Interpretation: Right: Patent femoral-above knee popliteal bypass graft with elevated velocities in the proximal segment consistent with a significant stenosis. Unable to reproduce elevated velocities in the common femoral inflow artery and proximal anastomosis reported in previous study done on 02/10/10 (PSVs = 233 and 267 cm/s respectively), otherwise no significant change. Signed by BRIDGET AVENDANO on 2010-08-11 04:04:56 PM VAS[facility] VB Text Report End of Report VASCUBASE 08/11/2010 1:30 PM EDT Bridget Avendano MD VASCULAR ORDERABLES [facility] * CAROTID DUPLEX, BILATERAL (08/11/2010 1:30 PM EDT) VB Text Report Department: Vascular Surgery Lab Patient: [id number] (JNENIFER WINTERS) CPT Code: 48179 ICD-9: 433.10 Referring Physician: BRIDGET AVENDANO Indication: ??f/u bilateral CEAs ICD9 Diagnosis Code: 433.10 Findings: Right ICA Proximal ?PSV (cm/s): 76 ?EDV (cm/s): 28 ?ICA/CCA: 0.9 ?Plaque Structure: Echogenic ?Plaque Surface: Irregular ?%Stenosis: <15% ICA Distal ?PSV (cm/s): 63 ?EDV (cm/s): 24 ?ICA/CCA: 0.8 CCA Distal ?PSV (cm/s): 83 ?EDV (cm/s): 16 ?%Stenosis: Minimal CCA Proximal ?PSV (cm/s): 92 ?EDV (cm/s): 0 External Carotid Artery ?PSV (cm/s): 90 ?EDV (cm/s): 11 ?%Stenosis: <50% Vertebral ?PSV (cm/s): 104 ?EDV (cm/s): 25 Left ICA Proximal ?PSV (cm/s): 225 ?EDV (cm/s): 80 ?ICA/CCA: 2.5 ?Plaque Structure: Echogenic ?Plaque Surface: Irregular ?%Stenosis: 50-59% ICA Distal ?PSV (cm/s): 93 ?EDV (cm/s): 39 ?ICA/CCA: 1.0 CCA Distal ?PSV (cm/s): 90 ?EDV (cm/s): 29 ?%Stenosis: <50% CCA Proximal ?PSV (cm/s): 91 ?EDV (cm/s): 20 External Carotid Artery ?PSV (cm/s): 98 ?EDV (cm/s): 14 ?%Stenosis: <50% Vertebral ?PSV (cm/s): 75 ?EDV (cm/s): 27 Interpretation: RIGHT: There is irregular plaque in the proximal internal carotid artery causing <15% stenosis when compared to the more distal internal carotid artery. The bifurcation level is in the mid neck. No significant change compared to previous exam done on 11/07/07. LEFT: There is focal irregular plaque in the distal common carotid artery causing 20-25% stenosis by e-caliper measurement. There is irregular plaque in the proximal internal carotid artery causing 50-59% stenosis when compared to the more distal internal carotid artery. The bifurcation level is in the mid neck. Significant progression of stenosis compared to the previous exam done on 11/07/07. Vertebral Artery Data: Antegrade blood flow with normal Doppler waveforms and velocities bilaterally. Previous Carotid Studies: Date RIGHT ICA Stenosis PSV Ratio LEFT ICA Stenosis PSV Ratio 11/07/07 <15% 95 1.48 16-49% 161 1.83 Current Exam <15% 76 0.92 50-59% 225 2.50 Accuracy Data: The following statistics are based on comparisons performed at [facility] between noninvasive carotid artery duplex data and arteriographic evaluation of the same patients from 3022-1994. Q / A Sens. Spec. PPV NPV Accuracy Carotid 93% 98% 97% 95% 96% Signed by BRIDGET AVENDANO on 2010-08-11 03:55:32 PM V[facility] VB Text Report End of Report V[facility] 08/11/2010 1:30 PM EDT Bridget Avendano MD VASCULAR ORDERABLES [facility] documented in this encounter Visit Diagnoses Not on filedocumented in this encounter Care Teams Inside Horticultural Specialty Grower Relationship Specialty Start Date End Date Shirley Yu MD [address] [place] [address] PCP - General 03/02/10 10/19/14 documented as of this encounter
--- OUTSIDE RECORDS SUMMARY | 2023-12-13 18:33 | XMS_ITS | Encounter Summary ---
Author Organization [facility] Address [address] [place] [address] Care Team Providers Care Manager Sharepoint Name Role Phone Shirley Yu MD Primary Care Provider [phone] Reason for Visit * Reason Comments Medications Refill Encounter Details Date Type Department Care Team (Late st Contact Info) Description 07/03/2023 Refill [facility] Endocrinology [address] [place] [address] Olivia Mayorga NP [address] [place] [address] Medications Refill Social History Tobacco [...] Start Date End Da te levothyroxine (SYNTHROID) 25 mcg tabletIndications:Acquired hypothyroidism TAKE 1 TABLET BY MOUTH TWICE WEEKLY 24 Tablet 07/03/2023 10/09/2023 documented in this encounter Miscellaneous Notes * Telephone Encounter - Lindsay Lomeli RN - 07/03/2023 1120 EDT Pt has appt scheduled and labs ordered. Rx e-scribed. documented in this encounter Plan of Treatment Not on file documented as of this encounter Visit Diagnoses Diagnosis Acquired hypothyroidism- Primary Unspecified hypothyroidism documented in this encounter Discontinued Medications Medication Sig Discontinue Reason Start Date End Da te levothyroxine (SYNTHROID) 25 mcg tablet TAKE 1 TABLET BY MOUTH TWICE WEEKLY 01/09/2023 07/03/2023 documented as of this encounter Care Teams Manager Sharepoint Relationship Specialty Start Date End Date Shirley Yu MD [address] [place] [address] PCP - General 06/14/16 documented as of this encounter
--- OUTSIDE RECORDS SUMMARY | 2023-12-13 18:33 | XMS_ITS | Encounter Summary ---
Author Organization [facility] Address [address] [place] [address] Care Team Providers Care Employee Communications Intern Name Role Phone Shirley Yu MD Primary Care Provider [phone] Reason for Visit * Reason Comments Medications Refill Encounter Details Date Type Department Care Team (Late st Contact Info) Description 01/08/2023 Refill [facility] Endocrinology [address] [place] [address] Olivia Mayorga NP [address] [facility] [place] [address] Medications Refill Social History Tobacco [...] TABLET BY MOUTH TWICE WEEKLY 24 Tablet 1 01/09/2023 07/03/2023 documented in this encounter Miscellaneous Notes * Telephone Encounter - Diana Vaughn RN - 01/09/2023 0913 EDT Prescription faxed to pharmacy per order Olivia Mayorga Has n/s last few appointments. Please offer visit. Has not been in since Apr 2022 documented in this encounter Plan of Treatment Not on file documented as of this encounter Visit Diagnoses Not on filedocumented in this encounter Discontinued Medications Medication Sig Discontinue Reason Start Date End Da te levothyroxine (SYNTHROID) 25 mcg tablet 200 mcg 2X/week and 175 mcg 5X/week 04/26/2022 01/09/2023 documented as of this encounter Care Teams Employee Communications Intern Relationship Specialty Start Date End Date Shirley Yu MD [address] [place] [address] PCP - General 06/14/16 documented as of this encounter
--- OUTSIDE RECORDS SUMMARY | 2023-12-13 18:33 | XMS_ITS | Encounter Summary ---
Author Organization [facility] [place] [address] Care Team Providers Care Environmental Conflict Manager Name Role Phone Shirley Yu MD Primary Care Provider [phone] Reason for Visit * Reason Comments Circulatory Problem Carotid Stenosis Encounter Details Date Type Department Care Team (Late st Contact Info) Description 05/25/2011 10:40 AM EST Follow-[place] [id number] Mario Avendano MD [facility] [place] [address] Intermittent claudication; PAD (peripheral artery disease); Stenosis [...] Sign Reading Time Taken Comments Blood Pressure 142/66 05/25/2011 10:24 AM EST Pulse 78 05/25/2011 10:24 AM EST Temperature - - Respiratory Rate - - Oxygen Saturation - - Inhaled Oxygen Concentration - - Weight 97.5 kg (215 lb) 05/25/2011 10:24 AM EST Height 170.2 cm (5' 7) 05/25/2011 10:24 AM EST Body Mass Index 33.67 05/25/2011 10:24 AM EST documented in this encounter Progress Notes * Mario Avendano MD - 05/25/2011 12:25 PM EST Jennifer Bob is a 50-year-old nondiabetic woman [...] she started smoking again this pastyear. She has also noticed worsening claudication in her left leg, primarily in the calf. This varies from day to day but stopped her after about 50 yards. She has had no TIAs or other neurologic symptoms and no symptoms in her right leg. On examination she remains obese. Her femoral pulses are palpable but difficult to find. Her right dorsal pedal pulse is palpable. I cannot palpate other distal pulses. Her SHEFALI is relatively stable on the right ampulla 75, a slight decrease from last time, but on the left her SHEFALI is only 0.29, which represents a significant decrease. We discussed the critical importance of smoking cessation and methods to accomplish this. We have agree that she will return in early July with a CTA of her legs, to determine what treatment optionsmight be available for her left leg. She would like to avoid surgery. 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 documented in this encounter Plan of Treatment Upcoming Encounters Date Type Department Care Team (Late st Contact Info) Description 12/19/2023 1:00 PM EDT Tech [place] [address] Marguerite Macias 12/19/2023 3:00 PM EDT Office [place] [address] Gardenia Golden APRN [facility] [address] VASCULAR SURGERY [place], [place] [id number] 01/29/2024 1:[address] [place] [address] César Escobar MD [facility] DR THORACIC SURGERY [place], [place] [address] 01/29/2024 2:30 PM EDT Office [place] [address] César Escobar MD [facility] [place] [address] documented as of this encounter Results * CT aortic/lower extremity [...] graft is noted and is patent. The shosh[place] superficial femoral artery is occluded. The popliteal [...] graft is noted and is patent. The shosh[place] superficial femoral artery is occluded. 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
--- OUTSIDE RECORDS SUMMARY | 2023-12-13 18:33 | XMS_ITS | Encounter Summary ---
Author Organization [facility] Address [address] [place] [address] Care Team Providers Care Osteopathy Doctor Name Role Phone Shirley Yu MD Primary Care Provider [phone] Reason for Visit * Reason Comments Diabetes Encounter Details Date Type Department Care Team (Latest Contact Info) Description 04/22/2022 13:00 EST Office Visit [facility] Endocrinology [address] [place] [address] Olivia Mayorga NP [address] [facility] [address] [place] [address] Type 1 diabetes mellitus with hyperglycemia (HCC-CMS) (Primary Dx); Insulin pump in place; Long-term insulin use (HCC-CMS); Primary hypertension; Mixed hyperlipidemia; Acquired hypothyroidism; Vitamin D deficiency Social History Tobacco Use Types Packs/Day Years [...] Body Mass Index 25.84 04/22/2022 1312 EST documented in this encounter Functional Status [...] * Patient Instructions* Olivia Mayorga NP - 04/22/2022 13:00 EST A1C 6.8 Congratulated on successful changes!! Adjust [...] in 2-3 months or sooner with concerns. [facility] customer service: option 2 to start pump. Call to make eye exam Labs today documented in this encounter Ordered Prescriptions Prescription Sig Dispensed Refills Start Date End Da te carvediloL (COREG) 6.25 mg tablet Take 1 Tablet by mouth daily. 30 Tablet 04/22/2022 documented in this encounter Progress Notes * Kimberly Nichols RN - 04/22/2022 1300 EST Needs eye Letter sent Lab Results Component Value Date UABCR 907 (H) 12/24/2021 HGBA1C 8.3 (A) 12/24/2021 Glucose-187 * Olivia Mayorga FRONT SIGHT ATTACHER - 04/22/2022 1300 EST Reason for Visit: DM follow-up PCP: Dr. Alberta Yu OTHER PROVIDERS: nephrology, [facility] Jennifer Snyder is a 61 y.o. female who presented to the clinic for a follow-up in [facility], with a history of DM for >40yrs. Hx of HTN, HLD, PVD, s/p PCI, MANISH on cpap, COPD, lung nodule, barretts esophagus, depression, hypothyroid. Lives in [place], [place] Lives alone but in a duplex with her daughter. They have an intercom system. Daughter is on her dexcom share. Has wrap on right hand from thumb injury. Continues to have foot edema, discussed with vascular and told will come/go. Random BG in clinic 187. Has small lunch of fueling bar, this was about 1 hr ago, forgot to bolus for this. Otherwise does bolus before eating, at first bite. Mentions having a lot of production staff worker lows, will shut off pump when this happens. Continue to do better with entering in carbs and using the bolus wizard Has not called tandem. Has not had labs yet. TSH 27.62 Levothyroxine 175 mcg does take this first thing in the morning, 30 minutes before other food/medications. [facility] DM: no Recent A1C: 6.8 (04/2022) 8.3 (12/2021) 6.9 (08/2021) Diabetic Medications: 770G pump w/ dexcom Current pump ~ 4 yrs. novolog TDD 20-30 in pump Current monitoring regimen: Frequency of [...] Problems Eye exam current (within one year): NED, [facility] Dr. Dominguez Provider: Last dental exam: overdue, has visit upcoming, has upper dentures CVD,PVD,CAD: HTN, HLD, s/p PCI Statin: rosuvastatin 10 mg, LDL 93 above goal 12/2021 Aspirin: yes ACEI/ARB: losartan 100 mg Prior visit with integrated logistics support manager: TAMEKA Vaughn Foot care: self Comorbidities: Retinopathy: [...] nursing note reviewed. Constitutional: Appearance: Normal appearance. HENT: Head: Normocephalic and atraumatic. Skin: General: Skin is warm and dry. Neurological: Mental Status: She is alert and oriented to person, place, and time. Psychiatric: Mood and Affect: Mood normal. Behavior: Behavior normal. Thought Content: Thought content normal. CGM INTERPRETATION Type of CGM: Dexcom 04/09-04/22/2022 Type of DM: I Diabetic Medications: novolog Indication for monitoring: hyper/hypoglycemia, insulin dosing Report Interpretation: Average glucose 149 mg/dL, standard deviation 48 TIR 72%, TAR 25%, TBR 3% Nocturnal glucose control: yes/no Post-prandial glucose excursions: yes Hypoglycemia incidence: no Other (exercise/activity): Hemoglobin A1c, POC Date Value Ref Range Status 04/22/2022 6.8 (A) 5.7 % Final Lab Results Component Value Date UABCR 907 (H) 12/24/2021 Lab Results Component Value Date BUN 32 (H) 10/01/2007 Jennifer Snyder is a 61 y.o. female who presented to the clinic for an initial consult in [facility], with a history of DM for > 40yrs. Problem List Items Addressed This Visit Endocrine/Metabolic Type 1 diabetes mellitus (HCC) - Primary Controlled A1C 6.8 Congratulated on successful changes!! [...] in 2-3 months or sooner with concerns. [email or web address] customer service: option 2 to start pump. Call to make eye exam Relevant Orders HEMOGLOBIN A1C POCT GLUCOSE, MANUAL ENTRY (Completed) POCT HEMOGLOBIN A1C (Completed) COMPREHENSIVE METABOLIC PANEL (CMP) LIPID PROFILE (INCLUDES CHOLESTEROL, TRIGLYCERIDES, HDL, LDL) THYROID CASCADE VITAMIN D (25,OH) URINE [id number] RATIO (ACR) Hypothyroidism Labs today. Relevant Orders THYROID CASCADE Insulin pump in place Long-term insulin use (HCC-CMS) (HCC) Cardiac/Vasculature HTN (hypertension) BP elevated. Has been out of coreg for 3 days d/t pharmacy issues. Sent 30 day supply to local pharmacy. Encouraged to reach out to PCP to resend script. Relevant Orders COMPREHENSIVE METABOLIC PANEL (CMP) LIPID PROFILE (INCLUDES CHOLESTEROL, TRIGLYCERIDES, HDL, LDL) Hyperlipidemia Labs today. Relevant Orders COMPREHENSIVE METABOLIC PANEL (CMP) LIPID PROFILE (INCLUDES CHOLESTEROL, TRIGLYCERIDES, HDL, LDL) Other Visit Diagnoses Vitamin D deficiency Relevant Orders VITAMIN D (25,OH) Patient Goals: A1C <7% Exercise: 150-300 minutes of CV exercise/week. Handouts provided for ongoing self education I spent a total of 35 minutes on the date of this encounter meeting with the patient and reviewing documentation/coordinating care as described in the above note. No procedures were performed at the time of the visit. This does not include time reviewing CGM data. documented in this encounter Miscellaneous Notes * Assessment & Plan Note - Olivia Mayorga NP - 04/22/2022 1349 EST Associated Problem(s): HTN (hypertension) BP elevated. Has been out of coreg for 3 days d/t pharmacy issues. Sent 30 day supply to local pharmacy. Encouraged to reach out to PCP to resend script. * Assessment & Plan Note - Olivia Mayorga NP - 04/22/2022 1345 EST Associated Problem(s): Hypothyroidism Labs today. * Assessment & Plan Note - Olivia Mayorga NP - 04/22/2022 1344 EST Associated Problem(s): Hyperlipidemia Labs today. * Assessment & Plan Note - Olivia Mayorga NP - 04/22/2022 1326 EST Associated Problem(s): Type 1 diabetes mellitus ([facility]) Controlled A1C 6.8 Congratulated on successful changes!! [...] start pump. Call to make eye exam documented in this encounter Plan of Treatment Not on file documented as of this encounter Procedures Procedure Name Priority Date/Time Associated Diagnosis Comments POCT GLUCOSE, MANUAL ENTRY Routine 04/22/2022 Type 1 diabetes mellitus with hyperglycemia ([facility]) POCT HEMOGLOBIN A1C Routine 04/22/2022 Type 1 diabetes mellitus with hyperglycemia ([facility]) documented in this encounter Results * (ABNORMAL) URINE [id number] RATIO (ACR) (04/22/2022 14:07 EST) Albumin, Urine >114.0 See Note mg/dL 2022 16:10 EST [facility] Comment: NOTE: Reference range not established Creatinine, Urine 50.2 See Note mg/dL 04/22/2022 16:10 EST [facility] Comment: NOTE: Reference range not established Lab Urine Albumin to Creatinine Ratio >2,271(H) <30 ??g/mg Creatinine 04/22/2022 16:10 EST [facility] Comment: Urine Albumin/Creatinine Ratio: Normal: <30 ug/mg Creatinine Moderately increased albuminuria: 30-300 ug/mg Creatinine Severley increased albuminuria: >300 ug/mg Creatinine Urine URINE / Unknown Urine Collect / Unknown 04/22/2022 14:07 EST 04/22/2022 14:36 EST Olivia Mayorga NP CHEMISTRY & BLOOD GAS ORDERABLES [facility] [address] [place] [address] * (ABNORMAL) HEMOGLOBIN A1C (04/22/2022 14:07 EST) Hemoglobin A1c 7.5(H) <5.7 % 04/25/2022 11:35 EST [facility] Comment: Glycemic Status References: Normal: ??<5.7% Pre-Diabetes: ??5.7% - 6.4% Diagnostic of Diabetes: ??> or = 6.5% (if confirmed) Est Avg Glucose 169 mg/dL 3 11:35 EST [facility] Comment:The eAG represents t he A1c result expressed as average glucose in mg/dL. Blood VENOUS BLOOD / Unknown Venipuncture / Unknown 04/22/2022 14:07 EST 04/22/2022 14:39 EST Olivia Mayorga NP CHEMISTRY & BLOOD GAS ORDERABLES [facility] [address] [place] [address] * (ABNORMAL) POCT HEMOGLOBIN A1C (04/22/2022) Hemoglobin A1c, POC 6.8(A) 5.7 % [facility] POINT OF CARE Blood CAPILLARY BLOOD / Unknown 04/22/2022 Olivia Mayorga NP POINT OF CARE MARK T ORDERABLES Performing Organization Address City/[facility]/ZIP Co de Phone Number [facility] POINT OF CARE * (ABNORMAL) POCT GLUCOSE, MANUAL ENTRY (04/22/2022) Glucose, POC 187(A) 70 - 100 mg/dL [facility] POINT OF CARE HN LAB POC COMMENT MANUAL (GLUCOSE) [facility] POINT OF animal trapper ID [facility] POIN T OF CARE Blood CAPILLARY BLOOD / Unknown 04/22/2022 Olivia Mayorga NP POINT OF CARE MARK T ORDERABLES Performing Organization Address City/[facility]/ZIP Co de Phone Number [facility] POINT OF CARE documented in this encounter Visit Diagnoses Diagnosis Type 1 diabetes mellitus with hyperglycemia ([facility])- Primary Type I (juvenile type) diabetes mellitus without mention of complication, not stated as uncontrolled Insulin pump in place Insulin pump status Long-term insulin use ([facility]) Encounter for long-term (current) use of insulin Primary hypertension Unspecified essential hypertension Mixed hyperlipidemia Acquired hypothyroidism Unspecified hypothyroidism Vitamin D deficiency Unspecified vitamin D deficiency documented in this encounter Discontinued Medications Medication Sig Discontinue Reason Start Date End Da te rosuvastatin (CRESTOR) 10 mg tablet Abstraction 02/17/2022 04/22/2022 levothyroxine (SYNTHROID) 175 mcg tablet Take 1 Tablet by mouth daily. Abstraction 01/19/2022 04/22/2022 carvediloL (COREG) 6.25 mg tablet Reorder 10/06/2021 04/22/2022 documented as of this encounter Historical Medications * This list may reflect changes made after this encounter. Medication Sig Dispensed Refills Start Date End Date levothyroxine (TIROSINT) 150 mcg capsule 0 Refill(s) 01/21/2022 rosuvastatin 5 mg capsule, sprinkle 0 Refill(s) 01/21/2022 added in this encounter Orders Lab Orders Without Results Count Last Ordered D ate First Ordered Date COMPREHENSIVE METABOLIC PANEL (CMP) 1 04/22 LIPID PROFILE (INCLUDES CHOL ESTEROL, TRIGLYCERIDES, HDL, LDL) 1 04/22/2022 THYROID CASCADE 1 04/22/2022 VITAMIN D (25,OH) 1 04/22/2022 documented in this encounter Care Teams Osteopathy Doctor Relationship Specialty Start Date End Date Shirley Yu MD [address] [place] [address] PCP - General 06/14/16 documented as of this encounter
--- OUTSIDE RECORDS SUMMARY | 2023-12-13 18:33 | XMS_ITS | Encounter Summary ---
Author Organization [facility] [place] [address] Care Team Providers Care Early Childhood Education Coordinator Name Role Phone Unavailable Primary Care Provider Unavailabl e Encounter Details Date Type Department Care Team (Late st Contact Info) Description 02/10/2010 1:00 PM EDT Follow-[place] [phone] Mario Avendano MD [facility] [place] [address] Social History Tobacco Use Types Packs/Day Years Used Date Smoking Tobacco: Never Assessed Sex and Gender Information Value Date Recorded Sex Assigned at Not on file Gender Identity Not on file Sexual Orientation Not on file documented as of this encounter Plan of Treatment Upcoming Encounters Date Type Department Care Team (Late st Contact Info) Description 12/19/2023 1:00 PM EDT Tech [place] [address] Marguerite Macias 12/19/2023 3:00 PM EDT Office [place] [address] Gardenia Golden APRN [facility] [place] [address] 01/29/2024 1:[address] [place] [phone] César Escobar MD [facility] [place] [address] 01/29/2024 2:30 PM EDT Office [place] [phone] César Escobar MD [facility] [place] [address] documented as of this encounter Visit Diagnoses Not on filedocumented in this encounter
--- OUTSIDE RECORDS SUMMARY | 2023-12-13 18:33 | XMS_ITS | Encounter Summary ---
Author Organization [facility] Address [address] [place] [address] Care Team Providers Care Slat Basket Maker Helper Machine Name Role Phone Shirley Yu MD Primary Care Provider [phone] Encounter Details Date Type Department Care Team (Late st Contact Info) Description 10/28/2021 Abstract [facility] Endocrinology [address] [place] [phone] Kimberly Nichols RN Social History Tobacco Use Types Packs/Day [...] Discontinue Reason Start Date End Da te carvedilol (COREG) 12.5 mg tablet Take 12.5 mg by mouth 2 times daily. Abstraction 10/28/2021 documented as of this encounter Historical Medications * This list may reflect changes made after this encounter. Medication Sig Dispensed Refills Start Date End Date cholecalciferol, Vitamin D3, 25 mcg (1,000 unit) tablet Take 2,000 Units by mouth daily. ferrous gluconate (FERGON) 324 mg (38 mg iron) tablet Take 324 mg by mouth daily with breakfast. chlorthalidone (HYGROTON) 25 mg tablet Take 25 mg by mouth daily. albuterol (ACCUNEB) 2.5 mg /3 mL (0.083 %) nebulizer solution Take 2.5 mg by nebulization 3 times daily. Blood-Glucose Sensor (DEXCOM G6 SENSOR) device by misc (non-drug; combo route) route. Blood-Glucose Transmitter (DEXCOM G6 TRANSMITTER) device by misc (non-drug; combo route) route. dilTIAZem (CARDIZEM) 30 mg tablet Take 30 mg by mouth 3 times daily. 12/06/2021 rosuvastatin (CRESTOR) 5 mg tablet Take 5 mg by mouth daily. 02/18/2022 levothyroxine (SYNTHROID) 150 mcg tablet Take 150 mcg by mouth daily. 01/19/2022 carvedilol (COREG) 3.125 mg tablet Take 6.25 mg by mouth. added in this encounter Care Teams Slat Basket Maker Helper Machine Relationship Specialty Start Date End Date Shirley Yu MD [address] [place] [address] PCP - General 06/14/16 documented as of this encounter
--- OUTSIDE RECORDS SUMMARY | 2023-12-13 18:33 | XMS_ITS | Encounter Summary ---
Author Organization [facility] Address [address] [place] [address] Care Team Providers Care Adult School Teacher Name Role Phone Shirley Yu MD Primary Care Provider [phone] Reason for Visit * Reason Comments Diabetes * Referral (Routine) - Authorization Not Required Specialty Diagnoses / Procedures Referred By [facility] Referred To Contact Endocrinology Diagnoses Type 1 diabetes mellitus with unspecified diabetic retinopathy without macular edema (HCC-CMS) Shirley Yu MD [address] [place] [address] [facility] Endocrinology [address] [place] [address] Referral ID Status Reason Start Date Expiration Date Visits Requested Visits Authorized [id number] Authorization Not Required 2 2 Encounter Details Date Type Department Care Team (Latest Contact Info) Description 12/24/2021 14:30 EDT Office Visit [facility] Endocrinology [address] [place], [place] [address] Olivia Mayorga NP [address] [place] [address] Type 1 diabetes mellitus with hyperglycemia (HCC) (Primary Dx); Acquired hypothyroidism; Insulin pump in place; Long-term insulin use (HCC-CMS) (HCC); Vitamin D deficiency Social History Tobacco Use [...] Sign Reading Time Taken Comments Blood Pressure 126/60 12/24/2021 1524 EDT Pulse 76 12/24/2021 1426 EDT Temperature - - Respiratory Rate 18 12/24/2021 1426 EDT Oxygen Saturation - - Inhaled Oxygen Concentration - - Weight 74.8 kg (165 lb) 12/24/2021 1426 EDT Height 170.2 cm (5' 7) 12/24/2021 1426 EDT Body Mass Index 25.84 12/24/2021 1426 EDT documented in this encounter Functional Status [...] * Patient Instructions* Olivia Mayorga NP - 12/24/2021 14:30 EDT A1C 8.3 Adjusted ICR 10 all day. Work on entering in carbs for EVERY MEAL AND SNACK! Do this 5-15 minutes BEFORE eating. Start with 5 g carbs for your 'fuel' bars. Keep up entering in glucose for every meal and elevated corrections. Try not to make corrections within 2 hours of a previous one!! Continue with dexcom CGM. Keep up with daily hydration, balanced meals, and activity daily. Follow-up in 2 months or sooner with concerns. Visit with TAMEKA Vaughn in 1 mo. Make eye exam. Fasting labs when able. documented in this encounter Progress Notes * Kimberly Nichols RN - 12/24/2021 1430 EDT Needs micro Last A1c 6.9 08/19/2021 Eye exam 12/31/2020 Foot exam 08/19/2021 Glucose-267 * Olivia Mayorga NP - 12/24/2021 1430 EDT Reason for Visit: DM initial PCP: Dr. Alberta Yu OTHER PROVIDERS: nephrology, [facility] Jennifer Snyder is a 61 y.o. female who presented to the clinic for an initial consult [facility], with a history of DM for >40yrs. Hx of HTN, HLD, PVD, s/p PCI, MANISH, COPD, lung nodule, barretts esophagus, depression, hypothyroid. When initially diagnosed, was in the hospital here at [facility], lost 20# plus in 2 weeks, had lots of polys. Started on insulin right away. Has been on her current pump for 4 years. Lives in [place] [address] It [place] to here. Previously saw Endo at [facility]. Lives alone but in a duplex with her daughter. They have an intercom system. Daughter is on her dexcom share. Visit with TAMEKA Vaughn, Random BG in clinic 199. Had lunch about 3.5 hrs ago, had 5 oz of chicken/steak, celery, broccoli, cucumbers. Brings questions about [employer] program she has started, encourages 2 larger meals/day w/ protein and veggies and then 4 smaller snacks/day. She has started this for mind/body/soul help/healing. Mentions when she eats will have increased perspiration on scalp/head. This has been nursing home for her. Notes increase in itching on forearms/upper legs for past 1.5 mo. Legs cramping worse at night, standing helps it get better. TSH Levothyroxine 150 mcg [facility] DM: no Recent A1C: 8.3 (12/2021) 6.9 (08/2021) Diabetic Medications: 770G pump w/ dexcom novolog TDD 30 in pump Current monitoring [...] Eye exam current (within one year): NED, [facility] Dr. Dominguez Provider: Last dental exam: overdue, has visit upcoming, has upper dentures CVD,PVD,CAD: HTN, HLD, s/p PCI Statin: rosuvastatin 5 mg Aspirin: yes ACEI/ARB: losartan 100 mg Prior visit with ecologist: TAMEKA Vaughn Foot care: self Comorbidities: Retinopathy: yes, hx of laser and injection tx Stable: Nephropathy/Kidney function: GFR 25 (08/2021) Lab Results Component Value Date CALCGFR 45 10/01/2007 MCR up to date? No results found for: UABCR Neuropathy: no Location: Stable: Review of Systems Constitutional: Negative. Eyes: Negative. Endocrine: Negative. Neurological: Negative. Physical Exam Vitals and nursing note reviewed. Constitutional: Appearance: Normal appearance. HENT: Head: Normocephalic and atraumatic. Cardiovascular: Rate and Rhythm: Normal rate and regular rhythm. Pulmonary: Effort: Pulmonary effort is normal. Breath sounds: Normal breath sounds. Musculoskeletal: Cervical back: Normal range of motion and neck supple. Skin: General: Skin is warm and dry. Neurological: Mental Status: She is alert and oriented to person, place, and time. Psychiatric: Mood and Affect: Mood normal. Behavior: Behavior normal. Thought Content: Thought content normal. CGM INTERPRETATION Type of CGM: Dexcom 12/11-12/24/2021 Type of DM: I Diabetic Medications: novolog Indication for monitoring: hyper/hypoglycemia, insulin dosing Report Interpretation: Average glucose 170 mg/dL, standard deviation 53 TIR 67%, TAR 34%, TBR 1% Nocturnal glucose control: yes/no Post-prandial glucose excursions: yes Hypoglycemia incidence: no Other (exercise/activity): Hemoglobin A1c, POC Date Value Ref Range Status 12/24/2021 8.3 (A) 5.7 % Final No results found for: UABCR Lab Results Component Value Date BUN 32 (H) 10/01/2007 Jennifer Snyder is a 61 y.o. female who presented to the clinic for an initial consult in [facility], with a history of DM for > 40yrs. Problem List Items Addressed This Visit Endocrine/Metabolic Type 1 diabetes mellitus (HCC) - Primary Uncontrolled A1C 8.3 Adjusted ICR 10 all day. Work on entering in carbs for EVERY MEAL AND SNACK! Do this 5-15 minutes BEFORE eating. Keep up entering in glucose for every meal and elevated corrections. Try not to make corrections within 2 hours of a previous one!! Continue with dexcom CGM. Keep up with daily hydration, balanced meals, and activity daily. Follow-up in 2 months or sooner with concerns. Make eye exam. Fasting labs when able. MALB today. Relevant Orders POCT GLUCOSE, MANUAL ENTRY (Completed) POCT HEMOGLOBIN A1C (Completed) URINE [id number] RATIO (ACR) LIPID PROFILE (INCLUDES CHOLESTEROL, TRIGLYCERIDES, HDL, LDL) VITAMIN D (25,OH) VITAMIN B12 THYROID CASCADE CORTISOL MAGNESIUM COMPREHENSIVE METABOLIC PANEL (CMP) COMPLETE BLOOD COUNT AND DIFFERENTIAL Hypothyroidism Labs when able. Insulin pump in place Long-term insulin use ([facility]) ([facility]) Other Visit Diagnoses Vitamin D deficiency Relevant Orders VITAMIN D (25,OH) Patient Goals: A1C <7% Exercise: 150-300 minutes of CV exercise/week. Handouts provided for ongoing self education I spent a total of 60 minutes on the date of this encounter meeting with the patient and reviewing documentation/coordinating care as described in the above note. No procedures were performed at the time of the visit. This does not include time reviewing CGM data. documented in this encounter Miscellaneous Notes * Assessment & Plan Note - Olivia Mayorga NP - 12/24/2021 5756 EDT Associated Problem(s): Hypothyroidism Labs when able. * Assessment & Plan Note - Olivia Mayorga NP - 12/24/2021 1455 EDT Associated Problem(s): Type 1 diabetes mellitus ([facility]) Uncontrolled A1C 8.3 Adjusted ICR 10 all day. Work on entering in carbs for EVERY MEAL AND SNACK! Do this 5-15 minutes BEFORE eating. Keep up entering in glucose for every meal and elevated corrections. Try not to make corrections within 2 hours of a previous one!! Continue with dexcom CGM. Keep up with daily hydration, balanced meals, and activity daily. Follow-up in 2 months or sooner with concerns. Make eye exam. Fasting labs when able. MALB today. documented in this encounter Plan of Treatment Not on file documented as of this encounter Procedures Procedure Name Priority Date/Time Associated Diagnosis Comments URINE [id number] NE RATIO (ACR) Routine 12/24/2021 14:39 EDT Type 1 diabetes mellitus with hyperglycemia (HCC) POCT GLUCOSE, MANUAL ENTRY Routine 12/24/2021 Type 1 diabetes mellitus with hyperglycemia (HCC) POCT HEMOGLOBIN A1C Routine 12/24/2021 Type 1 diabetes mellitus with hyperglycemia (HCC) documented in this encounter Results * (ABNORMAL) COMPLETE BLOOD COUNT AND DIFFERENTIAL (04/22/2022 14:07 EST) WBC 5.77 4.00 - 12.40 K/cmm 04/22/2022 14:42 [facility] RBC 4.26 3.86 - 5.04 M/cmm 04/22/2022 14:42 [facility] Hemoglobin 13.4 11.6 - 15.2 gm/dL 04/22/2022 14:42 [facility] HCT 41.0 34.9 - 44.4 % 04/22/2022 14:42 [facility] MCV 96 81 - 98 fl 04/22/2022 14:42 [facility] MCH 31.5 26.7 - 33.3 pg 04/22/2022 14:42 [facility] MCHC 32.7 32.1 - 35.9 gm/dL 04/22/2022 14:42 [facility] RDW-CV 12.9 <14.7 % 04/22/2022 14:42 [facility] RDW-SD 45.5 <50.4 fl 04/22/2022 14:42 [facility] PLT 212 141 - 377 K/cmm 04/22/2022 14:42 [facility] MPV 10.5 9.5 - 12.7 fl 04/22/2022 14:42 [facility] % Neutrophils 69.5 % 04/22/2022 14:42 [facility] % Lymphocytes 18.7 % 04/22/2022 14:42 [facility] % Monocytes 7.6 % 04/22/2022 14:42 [facility] % Eosinophils 3.1 % 04/22/2022 14:42 [facility] % Basophils 0.9 % 04/22/2022 14:42 [facility] % Immature Grans 0.2 % 04/22/19 14:42 [facility] Absolute Neutrophils 4.01 2.20 - 8.85 K/cmm 04/22/2022 14:42 [facility] Absolute Lymphocytes 1.08(L) 1.09 - 3.30 K/cmm 04/22/2022 14:42 [facility] Absolute Monocytes 0.44 0.10 - 0.80 K/cmm 04/22/2022 14:42 [facility] Absolute Eosinophils 0.18 0.03 - 0.61 K/cmm 04/22/2022 14:42 [facility] ABS Basophils 0.05 0.01 - 0.11 K/cmm 04/22/2022 14:42 [facility] Absolute Immature Grans 0.01 0.00 - 0.06 K/cmm 04/22/2022 14:42 [facility] Type of Differential: Auto 04/22/2022 14:42 [facility] Blood VENOUS BLOOD / Unknown Venipuncture / Unknown 04/22/2022 14:07 EST 04/22/2022 14:39 EST Olivia Mayorga HYPERBARIC TECHNOLOGIST PACKAGES & DNA UT OBE ORDERABLES [facility] [address] [place] [address] * (ABNORMAL) COMPREHENSIVE METABOLIC PANEL (CMP) (04/22/2022 14:07 EST) Sodium 137 136 - 145 mmol/L 04/22/2022 15:16 [facility] Potassium 4.8 3.5 - 5.0 mmol/L 04/22/2022 15:16 [facility] Chloride 102 96 - 110 mmol/L 04/22/2022 15:16 [facility] CO2 Total 28 22 - 32 mmol/L 04/22/2022 15:16 [facility] Glucose 162(H) 70 - 100 mg/dL 04/22/2022 15:16 [facility] BUN 17 10 - 26 mg/dL 04/22/2022 15:16 [facility] Creatinine 1.37(H) 0.52 - 1.04 mg/dL 04/22/2022 15:16 [facility] eGFR 43(L) >60 mL/min/1.7 3m2 04/22/2022 15:16 [facility] Total Protein 6.1(L) 6.3 - 8.2 g/dL 04/22/2022 15:16 [facility] Albumin 3.5 3.4 - 4.9 g/dL 04/22/2022 15:16 [facility] Alkaline Phosphatase 130(H) 38 - 126 U/L 04/22/2022 15:16 [facility] AST 40 15 - 46 U/L 04/22/2022 15:16 [facility] ALT 23 <35 U/L 04/22/2022 15:16 [facility] Bilirubin, Total 0.9 <1.4 mg/dL 04/22/19 15:16 [facility] Calcium 8.6 8.5 - 10.5 mg/dL 04/22/2022 15:16 [facility] Albumin/Globulin Ratio 1.3 1.0 - 2.5 04/22/2022 15:16 [facility] Anion Gap 7 5 - 14 04/22/2022 15:16 [facility] Blood VENOUS BLOOD / Unknown Venipuncture / Unknown 04/22/2022 14:07 EST 04/22/2022 14:51 EST Olivia Mayorga HYPERBARIC TECHNOLOGIST CHEMISTRY & BLOOD GAS ORDERABLES Performing Organization Address City/[facility] Co de Phone Number [facility] [address] [place] [address] * MAGNESIUM (04/22/2022 14:07 EST) Magnesium 1.9 1.7 - 2.8 mg/dL 04/22/2022 15:16 [facility] Blood VENOUS BLOOD / Unknown Venipuncture / Unknown 04/22/2022 14:07 EST 04/22/2022 14:51 EST Olivia Mayorga NP CHEMISTRY & BLOOD GAS ORDERABLES Performing Organization Address City/[facility]/ZIP Co de Phone Number [facility] [address] [place] [address] * CORTISOL (04/22/2022 14:07 EST) Cortisol 11 See Note ug/dL 04/22/2022 16:07 [facility] Comment: NOTE: Reference Ranges (from OCD [...] & BLOOD GAS ORDERABLES Performing Organization Address [facility] Co de Phone Number [facility] [address] [place] [phone] * (ABNORMAL) THYROID CASCADE (04/22/2022 14:07 EST) TSH 8.11(H) 0.47 - 4.68 mIU/L 04/22/2022 16:07 EST [facility] Blood VENOUS BLOOD / Unknown Venipuncture / Unknown 04/22/2022 14:07 EST 04/22/2022 14:51 EST Narrative [facility] - 04/22/2022 16:07 EST NOTE: The results of this assay can be falsely lowered due to the consumption of Biotin. Olivia Mayorga NP CHEMISTRY & BLOOD GAS ORDERABLES Performing Organization Address [facility] Phone Number [facility] [address] [place] [phone] * VITAMIN B12 (04/22/2022 14:07 EST) Vitamin B12 392 211 - 911 pg/mL 04/22/2022 16:07 EST [facility] Blood VENOUS BLOOD / Unknown Venipuncture / Unknown 04/22/2022 14:07 EST 04/22/2022 14:51 EST Narrative [facility] - 04/22/2022 16:07 EST The results of this assay can be falsely elevated due to the consumption of Biotin. Olivia Mayorga NP CHEMISTRY & BLOOD GAS ORDERABLES Performing Organization Address [facility] Co de Phone Number [facility] [address] [place] [phone] * (ABNORMAL) VITAMIN D (25,OH) (04/22/2022 14:07 EST) Pathologist [facility] 25OH Vitamin D Tot 28(L) 30 - 100 ng/mL 04/22/2022 16:07 [facility] Blood VENOUS BLOOD / Unknown Venipuncture / Unknown 04/22/2022 14:07 EST 04/22/2022 14:51 EST Olivia Mayorga NP CHEMISTRY & BLOOD GAS ORDERABLES Performing Organization Address City/State/[facility] Co de Phone Number [facility] [address] [place] [address] * LIPID PROFILE (INCLUDES CHOLESTEROL, TRIGLYCERIDES, HDL, LDL) (04/22/2022 14:07 EST) [facility] Cholesterol 182 <200 mg/dL 04/22/2022 15:29 [facility] Comment:Note that therapeuti c goals will differ between patients based on cardiac risk factors and current medical therapy. HDL 145 >=50 mg/dL 04/22/2022 15:29 [facility] Comment:Note that therapeuti c goals will differ between patients based on cardiac risk factors and current medical therapy. LDL, Calculated <20 <160 mg/dL 15:29 [facility] Comment: Note that therapeutic goals will differ between patients based on cardiac risk factors and current medical therapy. Calculated LDL invalid (<20 mg/dL) Direct LDL measurement added by reflex. Triglyceride 91 <=150 mg/dL 04/22/2022 15:29 [facility] Comment:Note that therapeuti c goals will differ between patients based on cardiac risk factors and current medical therapy. Chol/HDL Ratio 1.3 See Note 04/22/2022 15:29 [facility] Comment: NOTE: Desirable Ratio = <4.1 Patient At Risk Ratio = >5.0(Males) ?>6.0(Females) Non HDL Cholesterol 37 <160 mg/dL 04/22/2022 15:29 [facility] Comment:Note that therapeuti c goals will differ between patients based on cardiac risk factors and current medical therapy. Blood VENOUS BLOOD / Unknown Venipuncture / Unknown 04/22/2022 14:07 EST 04/22/2022 14:51 EST Olivia Mayorga NP CHEMISTRY & BLOOD GAS ORDERABLES Performing Organization Address City/[facility] Co de Phone Number [facility] [address] [place] [address] * (ABNORMAL) URINE [id number] RATIO (ACR) (12/24/2021 14:39 EDT) Albumin, Urine 22.5 See Note mg/dL 2021 18:52 EDT [facility] Comment: NOTE: Reference range not established Creatinine, Urine 24.8 See Note mg/dL 12/24/2021 18:52 EDT [facility] Comment: NOTE: Reference range not established Lab Urine Albumin to Creatinine Ratio 907(H) <30 ??g/mg Creatinine 12/24/2021 18:52 EDT [facility] Comment: Urine Albumin/Creatinine Ratio: Normal: <30 ug/mg Creatinine Moderately increased albuminuria: 30-300 ug/mg Creatinine Severley increased albuminuria: >300 ug/mg Creatinine Urine URINE / Unknown Urine Collect / Unknown 12/24/2021 14:39 EDT 12/24/2021 14:39 EDT Olivia Mayorga NP CHEMISTRY & BLOOD GAS ORDERABLES Performing Organization Address [facility] de Phone Number [facility] [address] [place] [address] * (ABNORMAL) POCT HEMOGLOBIN A1C (12/24/2021) Hemoglobin A1c, POC 8.3(A) 5.7 % [facility] POINT OF CARE Blood CAPILLARY BLOOD / Unknown 12/24/2021 Olivia Mayorga NP POINT OF CARE MARK T ORDERABLES Performing Organization Address [facility] de Phone Number [facility] POINT OF CARE * (ABNORMAL) POCT GLUCOSE, MANUAL ENTRY (12/24/2021) Glucose, POC 267(A) 70 - 100 mg/dL [facility] POINT OF CARE HN LAB POC COMMENT MANUAL (GLUCOSE) [facility] POINT OF greens laborer ID [facility] POIN T OF CARE Blood CAPILLARY BLOOD / Unknown 12/24/2021 Olivia Mayorga HYPERBARIC TECHNOLOGIST POINT OF CARE MARK T ORDERABLES [facility] POINT OF [facility] documented in this encounter Visit Diagnoses Diagnosis Type 1 diabetes mellitus with hyperglycemia ([facility])- Primary Type I (juvenile type) diabetes mellitus without mention of complication, not stated as uncontrolled Acquired hypothyroidism Unspecified hypothyroidism Insulin pump in place Insulin pump status Long-term insulin use ([facility]) Encounter for long-term (current) use of insulin Vitamin D deficiency Unspecified vitamin D deficiency documented in this encounter Discontinued Medications Medication Sig Discontinue Reason Start Date End Da te carvedilol (COREG) 3.125 mg tablet Take 6.25 mg by mouth. Abstraction 12/24/2021 documented as of this encounter Historical Medications * This list may reflect changes made after this encounter. Medication Sig Dispensed Refills Start Date End Date carvediloL (COREG) 6.25 mg tablet 022 04/22/2022 added in this encounter Care Teams Adult School Teacher Relationship Specialty Start Date End Date Shirley Yu MD [address] [place] [address] PCP - General 06/14/16 documented as of this encounter
--- OUTSIDE RECORDS SUMMARY | 2023-12-13 18:33 | XMS_ITS | Encounter Summary ---
Author Organization [facility] Address [address] [place] [address] Care Team Providers Care Casing Crew Name Role Phone Shirley Yu MD Primary Care Provider [phone] Encounter Details Date Type Department Care Team (Late st Contact Info) Description 01/08/2018 Results Only [facility] [phone] Hugo Doherty MD [address] [place] [address] Social History Tobacco Use Types Packs/Day Years [...] Procedure Name Priority Date/Time Associated Diagnosis Comments SURGICAL PATHOLOGY Routine 01/08/2018 22 :58 EDT documented in this encounter Results * SURGICAL PATHOLOGY (01/08/2018 22:58 EDT) Pathologist [facility] Pathology Report: SURGICAL PATHOLOGY REPORT Reports generated via electronic interface contain original data; however they are lacking the format of the original report. Caution should be taken when reading/interpretin g unformatted reports. Name: ? JENNIFER SNYDER ? Accession #: ? [id number] ? : ? 1960 (Age: 57) ??F ? Collect Date: ? 01/08/2018 ? Location: ? [facility] ? Receive Date: ? 01/08/2018 ? Provider: HGUO DOHERTY MD Copy to: SHIRLEY YU MD ? Final Pathologic Diagnosis: A. STOMACH, ANTRUM, BIOPSY: - Mild reactive (chemical) gastropathy. - No Helicobacter pylori-like organisms identified on H&E stained sections. B. ESOPHAGUS, GASTROESOPHAGEAL JUNCTION, BIOPSY: - Gastric cardiac-type mucosa with mild inflammation and reactive changes. - Negative for intestinal metaplasia and dysplasia. Document reviewed and electronically signed by: ROBIN CHAN MD Report ??Date: 01/11/2018 16:29 By the signature above, the attending physician certifies that he/she has personally conducted a gross and/or microscopic examination of the described specimens and rendered or confirmed the above diagnosis. Specimen(s) Received: A. ??Gastric antrum bx B. ??GE junction bx Clinical History: GERD; clinical diagnosis codes: K21.9, K22.711 Gross Description: A. ?Received in formalin labelled with proper patient identification (initials S, P) and gastric antrum bx are three chung irregular tissues ranging from 0.2 x 0.1 x 0.1 cm to 0.3 x 0.2 x 0.2 cm. Entirely submitted in A1. B. ?Received in formalin labelled with proper patient identification (initials S, P) and GE junction bx are two chung irregular tissues, 0.2 x 0.1 x 0.1 cm and 0.2 x 0.2 x 0.1 cm. Entirely submitted in B1. GENTRY Núñez (ASCP) 01/09/2018 8:41 AM End of Report [facility] 01/08/2018 22:5 8 EDT 01/08/2018 22:58 EDT Hugo Doherty MD PATHOLOGY ORDERABLES [facility] [address] [place] [address] documented in this encounter Visit Diagnoses Not on filedocumented in this encounter Care Teams Casing Crew Relationship Specialty Start Date End Date Shirley Yu MD [address] [place] [id number] PCP - General 06/14/16 documented as of this encounter
--- OUTSIDE RECORDS SUMMARY | 2023-12-13 18:33 | XMS_ITS | Encounter Summary ---
Author Organization [facility] Address [address] [place] [address] Care Team Providers Care Pillar Man Name Role Phone Shirley Yu MD Primary Care Provider [phone] Encounter Details Date Type Department Care Team (Late st Contact Info) Description 07/20/2021 Lab Requisition [facility] Pathology & Laboratory Medicine - [facility] [address] [place] [address] Maureen Dawson, DO [address] [place], [place] [id number] Encounter for other general examination Social History Tobacco Use Types Packs/Day Years [...] Priority Date/Time Associated Diagnosis Comments SURGICAL PATHOLOGY Today 07/20/2021 12 :26 EDT Encounter for other general examination documented in this encounter Results * SURGICAL PATHOLOGY (07/20/2021 12:26 EDT) Note to Patient The following pathology results have been interpreted by your pathologist and may be available to you before your health provider has had the opportunity to review them. Please allow time for your provider to receive these results and explore management options, if applicable. 07/22/2021 8:23 [facility] Final Diagnosis A. SKIN OF SHOULDER, RIGHT POSTERIOR, PUNCH BIOPSY: - Epidermal inclusion cyst with rupture and foreign body giant cell reaction. 07/22/2021 8:23 [facility] Attestation By the signature below, the attending physician certifies that they have 1) personally conducted a gross and/or microscopic examination of the described specimen(s), and/or personally interpreted the results of laboratory testing of the described specimen(s), and 2) personally rendered or confirmed the above diagnosis. 07/22/2021 8:23 [facility] at 0823 Clinical History Sebaceous cysts 07/22/2021 8:23 [facility] Gross Description A. Received in formalin labelled with proper patient identification (initials S, P) and R posterior shoulder cyst are 2 fragments of pink-white tissue (0.7 x 0.4 x 0.2 cm and 0.7 x 0.3 x 0.3 cm). No obvious cysts are present. The 2 fragments are bisected and entirely submitted in A1-A2. ALEX MELGAR 07/21/2021 9:33 07/22/2021 8:23 [facility] Performing Lab [facility] 07/22/2021 8:23 [facility] Scanned Images 07/22/2021 8:23 [facility] Tissue TISSUE SPECIMEN FROM SKIN / Unknown 07/20/2021 12:26 EDT 07/20/2021 23:06 EDT Muareen Dawson DO PATHOLOGY ORDERABLES [facility] [address] [place] [address] documented in this encounter Visit Diagnoses Diagnosis Encounter for other general examination documented in this encounter Care Teams Pillar Man Relationship Specialty Start Date End Date Shirley Yu MD [address] [place] [address] PCP - General 06/14/16 documented as of this encounter
--- OUTSIDE RECORDS SUMMARY | 2023-12-13 18:33 | XMS_ITS | Encounter Summary ---
Author Organization [facility] Address [address] [place] [address] Care Team Providers Care Rehab Nurse Name Role Phone Shirley Yu MD Primary Care Provider [phone] Encounter Details Date Type Department Care Team (Late st Contact Info) Description 04/26/2022 Orders Only [facility] Endocrinology [address] [place] [address] Olivia Mayorga NP [address] [facility] [address] [place] [address] Type 1 diabetes mellitus with hyperglycemia (HCC-CMS) (Primary Dx); Acquired hypothyroidism Social History Tobacco Use Types Packs/Day Years [...] 200 mcg 2X/week and 175 mcg 5X/week 24 Tablet 2 04/26/2022 01/09/2023 documented in this encounter Plan of Treatment Not on file documented as of this encounter Visit Diagnoses Diagnosis Type 1 diabetes mellitus with hyperglycemia ([facility])- Primary Type I (juvenile type) diabetes mellitus without mention of complication, not stated as uncontrolled Acquired hypothyroidism Unspecified hypothyroidism documented in this encounter Care Teams Rehab Nurse Relationship Specialty Start Date End Date Shirley Yu MD [address] [place] [address] PCP - General 06/14/16 documented as of this encounter
--- OUTSIDE RECORDS SUMMARY | 2023-12-13 18:33 | XMS_ITS | Encounter Summary ---
Author Organization [facility] Address [address] [place] [address] Care Team Providers Care Water Ski Assembler Name Role Phone Shirley Yu MD Primary Care Provider [phone] Reason for Visit * Reason Comments Medications Refill Encounter Details Date Type Department Care Team (Late st Contact Info) Description 10/27/2023 Refill [facility] Endocrinology [address] [place] [address] Olivia Mayorga, TUNNEL HEADING INSPECTOR [address] [facility] [place] [address] Medications Refill Social History Tobacco [...] VISIT BEFORE MORE REFILLS 30 Tablet 10/27/2023 documented in this encounter Miscellaneous Notes * Telephone Encounter - Olivia Myaorga NP - 10/27/2023 1201 EDT Please route further refills to PCP until f/up occurs. Thanks. * Telephone Encounter - Olga Cruz RN - 10/27/2023 1129 EDT No visits since 04/22/22 We have refilled her medications twice for 30 days. [facility] has been unsuccessful in scheduling an appointment with patient. Sending to Olivia for guidance. documented in this encounter Plan of Treatment Not on file documented as of this encounter Visit Diagnoses Diagnosis Acquired hypothyroidism Unspecified hypothyroidism documented in this encounter Discontinued Medications Medication Sig Discontinue Reason Start Date End Da te levothyroxine (SYNTHROID) 175 mcg tabletIndications:Acquired hypothyroidism Take 1 Tablet by mouth daily. NEEDS LABS AND VISIT BEFORE MORE REFILLS 09/19/2023 10/27/2023 documented as of this encounter Care Teams Water Ski Assembler Relationship Specialty Start Date End Date Shirley Yu MD [address] [place] [address] PCP - General 06/14/16 documented as of this encounter
--- OUTSIDE RECORDS SUMMARY | 2023-12-13 18:33 | XMS_ITS | Encounter Summary ---
[place] [address] Care Team Providers Care Brewery Pumper Name Role Phone Shirley Yu MD Primary Care Provider Reason for Visit * Reason Comments Carotid Stenosis Encounter Details Date Type Department Care Team (Late st Contact Info) Description 08/11/2010 4:00 PM EDT Follow-[place] [phone] Bridget Avendano MD [facility] [place] [place] [address] PAD (peripheral artery disease) (Primary Dx) Discharge Disposition: Home Social History [...] Sign Reading Time Taken Comments Blood Pressure 155/77 08/11/2010 2:51 PM EDT rig ht Pulse 62 08/11/2010 2:51 PM EDT Temperature - - Respiratory Rate - - Oxygen Saturation - - Inhaled Oxygen Concentration - - Weight - - Height - - Body Mass Index - - documented in this encounter Progress Notes * Bridget Avednano MD - 08/11/2010 3:56 PM EDT Jennifer Bob is a 49-year-old woman who is being followed for carotid and lower extremity arterial disease. She is now 2.5 years status post right femoral to above-knee popliteal vein graft and has a proximal stenosis in this graft that is mild, that we are following. She has left SFA occlusive disease that causes mild claudication that is not yet disabling. She does not have symptomatic carotid disease but has known mild carotid stenosis. Unfortunately, although she had stop smoking, she began smoking again about 6 months ago. She is on aspirin and Coumadin and a statin. Today her femoral pulses are palpable although difficult to find because of obesity. I can palpate her right dorsal pedal pulse but not her left. Duplex scanning shows a lower peak systolic velocity,281 cm/s in her proximal vein graft compared with last time when this was 349 cm/s. Her SHEFALI remainsnearly normal at 0.96 on the right and is stable at 0.61 on the left. Her carotid duplex scan showsless than 15% stenosis on the right, but now 50-59% stenosis on the left, which represents mild progression. We discussed the importance of complete smoking cessation given her carotid disease progression. This is especially true given her young age. In the past she has used a nicotine patch to successfullystopped and she will do this again. I will recheck her carotid arteries and her leg bypass in 9 months. documented in this encounter Plan of Treatment Upcoming Encounters Date Type Department Care Team (Late st Contact Info) Description 12/19/2023 1:00 PM EDT Tech Visit [place] [phone] Marguerite Macias 12/19/2023 3:00 PM EDT Office Visit [place] [phone] Gardenia Golden, LADARIUS [facility] [place] [place] [address] 01/29/2024 1:[address] [place] [address] César Escobar MD [facility] [place] [address] 01/29/2024 2:30 PM EDT Office [place] [address] César Escobar MD [facility] THORACIC SURGERY [place], [place] [address] documented as of this encounter Results * Cerebrovascular Duplex, Bilateral (05/25/2011 8:37 AM EST) VB Text Report Department: Vascular Surgery Lab Patient: [id number] (JENNIFER BOB) CPT Code: 12374 ICD-9: 447.1 Referring Physician: BRIDGET AVENDANO Indication: ??carotid stenosis, ? progression; history of bilateral CEA ICD9 Diagnosis Code: 447.1 Findings: Right ICA Proximal ?PSV (cm/s): 83 ?EDV (cm/s): 39 ?ICA/CCA: 0.9 ?Plaque Structure: Echogenic ?Plaque Surface: Smooth ?%Stenosis: <15% ICA Distal ?PSV (cm/s): 67 ?EDV (cm/s): 27 ?ICA/CCA: 0.7 CCA Distal ?PSV (cm/s): 94 ?EDV (cm/s): 17 ?%Stenosis: Minimal CCA Proximal ?PSV (cm/s): 74 ?EDV (cm/s): 13 External Carotid Artery ?PSV (cm/s): 74 ?EDV (cm/s): 9 ?%Stenosis: <50% Vertebral ?PSV (cm/s): 87 ?EDV (cm/s): 19 Left ICA Proximal ?PSV (cm/s): 241 ?EDV (cm/s): 74 ?ICA/CCA: 2.6 ?Plaque Structure: Echogenic ?Plaque Surface: Irregular ?%Stenosis: 50-59% ICA Distal ?PSV (cm/s): 116 ?EDV (cm/s): 56 ?ICA/CCA: 1.2 CCA Distal ?PSV (cm/s): 93 ?EDV (cm/s): 29 ?%Stenosis: <50% CCA Proximal ?PSV (cm/s): 87 ?EDV (cm/s): 25 External Carotid Artery ?PSV (cm/s): 170 ?EDV (cm/s): 8 ?%Stenosis: <50% Vertebral ?PSV (cm/s): 50 ?EDV (cm/s): 16 Interpretation: RIGHT: A thin layer of circumferential plaque is present in the common carotid artery causing minimal stenosis. There is smooth plaque in the proximal internal carotid artery causing <15% stenosis when compared to the more distal internal carotid artery. No significant change compared to previous exam 08-11-10. The bifurcation level is in the mid neck. LEFT: There is plaque in the common carotid artery causing 20-25% stenosis by electronic calipers. There is bulky irregular plaque in the proximal internal carotid artery causing 50-59% stenosis when compared to the more distal internal carotid artery. No significant change compared to previous exam 08-11-10. The bifurcation level is in the mid neck. Vertebral Artery Data: Antegrade blood flow with normal Doppler waveforms and velocities bilaterally. Previous Carotid Studies: Date RIGHT ICA Stenosis PSV Ratio LEFT ICA Stenosis PSV Ratio <15% 76 0.92 50-59% 225 2.50 Current Exam <15% 83 0.88 50-59% 241 2.59 Accuracy Data: The following statistics are based on comparisons performed at [facility] between noninvasive carotid artery duplex data and arteriographic evaluation of the same patients from 7622-0423. Q / A Sens. Spec. PPV NPV Accuracy Carotid 93% 98% 97% 95% 96% Signed by BRIDGET AVENDANO on 2011-05-25 12:24:40 PM [facility] VB Text Report End of Report [facility] 05/25/2011 8:37 AM EST Bridget Avendano MD VASCULAR ORDERABLES [facility] * SHEFALI, legs, multiple levels (05/25/2011 8:37 AM EST) VB Text Report Department: Vascular Surgery Lab Patient: [id number] (JENNIFER BOB) CPT Code: 09069 ICD-9: 440.21 Referring Physician: BRIDGET AVENDANO Indication: ?? PAD; s/p right fem-pop BPG, follow-up Diabetes mellitus: ?? Yes ICD9 Diagnosis Code: 440.21 Definitions: ??SHEFALI = Ankle / Brachial Systolic Pressure Index, TBI = Toe / Brachial Systolic Pressure Index Findings: Right ?Pressure (mmHg) ?? SHEFALI ??Waveform ? TBI Brachial Artery ?128 Dorsalis Pedis (Ankle) Artery ?76 ? 0.59 ??Monophasic Posterior Tibial (Ankle) Artery ??96 ? 0.75 ??Monophasic Great Toe ?74 ? 0.58 Left ? Pressure (mmHg) ?? SHEFALI ??Waveform ? TBI Brachial Artery ?127 Dorsalis Pedis (Ankle) Artery ?31 ? 0.24 ??Monophasic Posterior Tibial (Ankle) Artery ??37 ? 0.29 ??Monophasic Great Toe ?19 ? 0.15 Interpretation: RIGHT: Mild to moderate lower extremity arterial occlusive disease. Significant deterioration since last exam 08-11-10. LEFT: Severe lower extremity arterial occlusive disease. Significant deterioration since last exam 08-11-10. Previous ABIs with change from previous value: [...] (+0.07) 0.55 (-0.03) 0.63 (+0.02) 0.38 (+0.01) Current Exam 0.59 (-0.27) 0.75 (-0.18) 0.58 (-0.10) 0.24 (-0.31) 0.29 (-0.34) 0.15 (-0.23) Signed by BRIDGET AVENDANO on 2011-05-25 12:57:24 PM [facility] VB Text Report End of Report [facility] 05/25/2011 8:37 AM EST Bridget Avendano MD VASCULAR ORDERABLES [facility] documented in this encounter Visit Diagnoses Diagnosis PAD (peripheral artery disease)- Primary Peripheral vascular disease, unspecified documented in this encounter Care Teams Brewery Pumper Relationship Specialty Start Date End Date Shirley Yu MD [address] [place] [address] PCP - General 03/02/10 10/19/14 documented as of this encounter
--- OUTSIDE RECORDS SUMMARY | 2023-12-13 18:33 | XMS_ITS | Encounter Summary ---
Author Organization [facility] Address [address] [place] [address] Care Team Providers Care Funeral Professional Name Role Phone Shirley Yu MD Primary Care Provider [phone] Reason for Visit * Reason Comments Medications Refill Encounter Details Date Type Department Care Team (Late st Contact Info) Description 02/26/2023 Refill [facility] Endocrinology [address] [place] [address] Olivia Mayorga, TRINY [address] [facility] [place] [address] Medications Refill Social History Tobacco [...] TABLET BY MOUTH EVERY DAY 90 Tablet 02/27/2023 06/21/2023 documented in this encounter Plan of Treatment Not on file documented as of this encounter Visit Diagnoses Not on filedocumented in this encounter Discontinued Medications Medication Sig Discontinue Reason Start Date End Da te levothyroxine (SYNTHROID) 175 mcg tablet TAKE ONE TABLET BY MOUTH EVERY DAY 08/26/2022 02/27/2023 documented as of this encounter Care Teams Funeral Professional Relationship Specialty Start Date End Date Shirley Yu MD [address] [place] [address] PCP - General 06/14/16 documented as of this encounter
--- OUTSIDE RECORDS SUMMARY | 2023-12-13 18:33 | XMS_ITS | Encounter Summary ---
Author Organization [facility] [place] [address] Care Team Providers Care Overhead Crane Truck Loader Name Role Phone Shirley Yu MD Primary Care Provider [phone] Encounter Details Date Type Department Care Team (Late st Contact Info) Description 03/30/2010 8:45 AM EST [place] [phone] Timothy Vega MD [facility] [place] [address] Discharge Disposition: Home Social History Tobacco Use [...] EDT Tech Visit [place] [address] Marguerite Macias 12/19/2023 3:00 PM EDT Office [place] [address] Gardenia Golden, LADARI[facility] [place] [address] 01/29/2024 1:[address] [place] [place] [address] César Escobar MD [facility] [place] [address] 01/29/2024 2:30 PM EDT Office [place] [address] César Escobar MD [facility] [place] [address] documented as of this encounter Visit Diagnoses Not on filedocumented in this encounter Care Teams Overhead Crane Truck Loader Relationship Specialty Start Date End Date Shirley Yu MD [address] [place] [address] PCP - General 03/02/10 10/19/14 documented as of this encounter
--- OUTSIDE RECORDS SUMMARY | 2023-12-13 18:33 | XMS_ITS | Encounter Summary ---
[place] [address] Care Team Providers Care Supervisor Compounding And Finishing Name Role Phone Shirley Yu MD Primary Care Provider [phone] Encounter Details Date Type Department Care Team (Late st Contact Info) Description 08/11/2010 1:30 PM EDT Office Visit [place] [address] Sheyla Varma, [place] Social History Tobacco Use Types Packs/Day [...] EDT Tech Visit [place] [address] Marguerite Macias 12/19/2023 3:00 PM EDT Office [place] [address] Gardenia Golden, [facility] [place] [address] 01/29/2024 1:[address] [place] [address] César Escobar MD [facility] [place] [address] 01/29/2024 2:30 PM EDT Office [place] [address] César Escobar MD [facility] [place] [address] documented as of this encounter Visit Diagnoses Not on filedocumented in this encounter Care Teams Supervisor Compounding And Finishing Relationship Specialty Start Date End Date Shirley Yu MD [address] [place] [address] PCP - General 03/02/10 10/19/14 documented as of this encounter
--- OUTSIDE RECORDS SUMMARY | 2023-12-13 18:33 | XMS_ITS | Encounter Summary ---
Author Organization [facility] Address [address] [place] [address] Care Team Providers Care Staff Forester Name Role Phone Shirley Yu MD Primary Care Provider [phone] Reason for Visit * Reason Comments Medications Refill Encounter Details Date Type Department Care Team (Late st Contact Info) Description 10/09/2023 Refill [facility] Endocrinology [address] [place] [address] Olivia Mayorga NP [address] [facility] [place] [address] Medications Refill Social History [...] levothyroxine (SYNTHROID) 25 mcg tabletIndications:Acquired hypothyroidism TAKE ONE TABLET BY MOUTH TWICE WEEKLY 8 Tablet 10/09/2023 documented in this encounter Miscellaneous Notes * Telephone Encounter - Lindsay Lomeli RN - 10/09/2023 0950 EDT Requesting refill levothyroxine. Overdue for labs and office visit. 30 day refill sent. Please callpt again to remind her to schedule and get labs. documented in this encounter Plan of Treatment Not on file documented as of this encounter Visit Diagnoses Diagnosis Acquired hypothyroidism Unspecified hypothyroidism documented in this encounter Discontinued Medications Medication Sig Discontinue Reason Start Date End Da te levothyroxine (SYNTHROID) 25 mcg tabletIndications:Acquired hypothyroidism TAKE 1 TABLET BY MOUTH TWICE WEEKLY 07/03/2023 10/09/2023 documented as of this encounter Care Teams Staff Forester Relationship Specialty Start Date End Date Shirley Yu MD [address] [place] [address] PCP - General 06/14/16 documented as of this encounter
--- OUTSIDE RECORDS SUMMARY | 2023-12-13 18:33 | XMS_ITS | Encounter Summary ---
Author Organization [facility] Address [address] [place] [address] Care Team Providers Care Ornamenter Name Role Phone Shirley Yu MD Primary Care Provider [phone] Reason for Visit * Reason Comments Medications Refill Encounter Details Date Type Department Care Team (Late st Contact Info) Description 09/18/2023 Refill [facility] Endocrinology [address] [place] [address] Olivia Mayorga NP [address] [facility] [place] [address] Medications Refill Social History Tobacco [...] End Da te levothyroxine (SYNTHROID) 175 mcg tabletIndications:Acquire d hypothyroidism Take 1 Tablet by mouth daily. NEEDS LABS AND VISIT BEFORE MORE REFILLS 30 Tablet 09/19/2023 10/27/2023 documented in this encounter Miscellaneous Notes * Telephone Encounter - Sherice Arboleda - 09/20/2023 1004 EDT LM for pt to call for scheduling and let her know about getting labs done. * Telephone Encounter - Kimberly Nichols RN - 09/19/2023 0741 EDT Needs f/u visit See te 06/20- needs labs and f/u- 30 day supply refilled documented in this encounter Plan of Treatment Not on file documented as of this encounter Visit Diagnoses Diagnosis Acquired hypothyroidism Unspecified hypothyroidism documented in this encounter Discontinued Medications Medication Sig Discontinue Reason Start Date End Da te levothyroxine (SYNTHROID) 175 mcg tabletIndications:Acquired hypothyroidism TAKE ONE TABLET BY MOUTH EVERY DAY 06/21/2023 09/19/2023 documented as of this encounter Care Teams Ornamenter Relationship Specialty Start Date End Date Shirley Yu MD [address] [place] [address] PCP - General 06/14/16 documented as of this encounter
--- OUTSIDE RECORDS SUMMARY | 2023-12-13 18:33 | XMS_ITS | Encounter Summary ---
Author Organization [facility] Address [address] [place] [address] Care Team Providers Care Scrap Sorter Name Role Phone Shirley Yu MD Primary Care Provider [phone] Reason for Visit * Reason Comments Medications Refill Encounter Details Date Type Department Care Team (Late st Contact Info) Description 07/29/2022 Refill [facility] Endocrinology [address] [place] [address] Miracle Valdes MD [address] [facility] [place] [address] Medications Refill Social History Tobacco [...] encounter Miscellaneous Notes * Telephone Encounter - Nena Sanchez RN - 08/01/2022 1481 EDT Refused d/t being dc'd documented in this encounter Plan of Treatment Not on file documented as of this encounter Visit Diagnoses Not on filedocumented in this encounter Care Teams Scrap Sorter Relationship Specialty Start Date End Date Shirley Yu MD [address] [place] [address] PCP - General 06/14/16 documented as of this encounter
--- OUTSIDE RECORDS SUMMARY | 2023-12-13 18:33 | XMS_ITS | Encounter Summary ---
Author Organization [facility] Address [address] [place] [address] Care Team Providers Care Stone Layer Name Role Phone Shirley Yu MD Primary Care Provider [phone] Reason for Visit * Reason Comments Medications Refill Encounter Details Date Type Department Care Team (Late st Contact Info) Description 08/26/2022 Refill [facility] Endocrinology [address] [place] [address] Miracle Valdes MD [address] [facility] [place] [address] Medications Refill Social History Tobacco [...] TABLET BY MOUTH EVERY DAY 90 Tablet 1 08/26/2022 02/27/2023 documented in this encounter Miscellaneous Notes * Telephone Encounter - Diana Vaughn RN - 08/26/2022 0906 EDT Prescription faxed to pharmacy per order Olivia Mayorga documented in this encounter Plan of Treatment Not on file documented as of this encounter Visit Diagnoses Not on filedocumented in this encounter Care Teams Stone Layer Relationship Specialty Start Date End Date Shirley Yu MD [address] [place] [address] PCP - General 06/14/16 documented as of this encounter
--- OUTSIDE RECORDS SUMMARY | 2023-12-13 18:33 | XMS_ITS | Encounter Summary ---
Author Organization [facility] [place] [address] Care Team Providers Care Overlay Operator Name Role Phone Unavailable Primary Care Provider Unavailabl e Encounter Details Date Type Department Care Team (Late st Contact Info) Description 02/10/2010 10:30 AM EDT Office Visit [place] [phone] Shirley [place], [place] Social History Tobacco Use [...] PM EDT Tech Visit [place] [phone] Marguerite Macias 12/19/2023 3:00 PM EDT Office Visit [place] [address] Gardenia Golden, LADAR[facility]US [facility] [place] [address] 01/29/2024 1:[address] [place] [address] César Escobar MD [facility] [place] [address] 01/29/2024 2:30 PM EDT Office Visit [place] [address] César Escobar MD [facility] [place] [address] documented as of this encounter Visit Diagnoses Not on filedocumented in this encounter
--- OUTSIDE RECORDS SUMMARY | 2023-12-13 18:33 | XMS_ITS | Encounter Summary ---
Author Organization [facility] [place] [address] Care Team Providers Care Assembler Surgical Garment Name Role Phone Shirley Yu MD Primary Care Provider [phone] Reason for Visit * Reason Comments Skin Check Encounter Details Date Type Department Care Team (Late st Contact Info) Description 12/17/2010 1:45 PM EDT Office Visit Dermatology [address] [facility] [address] [place] [address] Hussain Hays MD [address], [facility] [place] [address] Hyperkeratosis palmaris et plantaris (Primary Dx) Social History Tobacco Use Types [...] as of this encounter Progress Notes * Hussain Hays MD - 12/17/2010 2:42 PM EDT Problem: Thickened skin on palms and hands. Casandra follows up after last seeing me in 2000. She states that as long as she can remember she has had problems with thickened skin on the palms and hands dry skin, and in the winter these crack, split and are painful. She has tried numerous emollients but nothing really works all that well. She wonders what I would recommend. There is no known family history of psoriasis. 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 Physical examination reveals a pleasant 50-year-old woman who has even quite regular hyperkeratosis of the entire skin of the palms and soles. She has no stigmata of psoriasis on the elbows or knees. The palms and soles have no micro vesiculation pustules. She does have some fine fissuring present over the finger and toe pads. Assessment & Plan: Palmar plantar hyperkeratosis. a. Do not believe this is psoriasis but really more on a genetic basis as her mother has the same problem. b. Discussed my findings with patient. c. Recommended that we begin 40% Urea Cream applying on a BID basis to affected areas, use as necessary. d. Another option would be 12% Lac-Hydrin or AmLactin 12% Cream. e. Patient will let me know if neither of these is effective. f. RTC here p.r.n. Cc: Shirley Yu MD documented in this encounter Plan of Treatment Upcoming Encounters Date Type Department Care Team (Late st Contact Info) Description 12/19/2023 1:00 PM EDT Tech Visit [place] [address] Marguerite Macias 12/19/2023 3:00 PM EDT Office Visit [place] [address] Gardenia Golden, [facility] [place] [address] 01/29/2024 1:[address] [place] [address] César Escobar MD [facility] [place] [address] 01/29/2024 2:30 PM EDT Office Visit [place] [address] César Escobar MD [facility] [address] [place] [address] documented as of this encounter Visit Diagnoses Diagnosis 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
--- OUTSIDE RECORDS SUMMARY | 2023-12-13 18:33 | XMS_ITS | Encounter Summary ---
Author Organization [facility] Address [address] [place] [address] Care Team Providers Care Sde Name Role Phone Shirley Yu MD Primary Care Provider [phone] Encounter Details Date Type Department Care Team (Late st Contact Info) Description 04/08/2021 Lab Requisition [facility] Pathology & Laboratory Medicine - [facility] [address] [place] [address] Outr Resulting Lab, Provider Social History Tobacco [...] Priority Date/Time Associated Diagnosis Comments ZZCOVID-19 TEST [facility] PCR Today 04/08/2021 11:50 EST COVID-19 TESTING Routine 04/08/2021 11:5 0 EST documented in this encounter Results * COVID-19 TEST [facility] PCR (04/08/2021 11:50 EST) Swab 04/08/2021 11:5 0 EST 04/08/2021 21:48 EST Provider Outr Resulting Lab MICROBIOLOGY - GENERAL ORDERABLES Performing Organization Address City/[facility] Co de Phone Number [facility] [address] [place] [address] * COVID-19 TESTING (04/08/2021 11:50 EST) COVID-19 rt-PCR Result Negative Negative 04/09/2021 15:47 EST [facility] Comment: This test has not [...] the authorization is terminated or revoked sooner. Negative results do not preclude 2019-nCoV infection and should not be used as the sole basis for treatment or other patient management decisions. Negative results must be combined with clinical observations, patient history, and epidemiological information. Performed on the [employer] Fusion instrument Performing Lab Greig [facility] 04/09/2021 15:47 EST [facility] Swab 04/08/2021 11:5 0 EST 04/08/2021 21:48 EST Provider Outr Resulting Lab MICROBIOLOGY - GENERAL ORDERABLES Performing Organization Address City/[facility]/ZIP Co de Phone Number [facility] [address] [place] [address] documented in this encounter Visit Diagnoses Not on filedocumented in this encounter Additional Health Concerns Infection Onset Date Last Indicated Resolved Time COVID-19 04/27/2021 04/27/2021 05/17/2021 22:1 7 EST documented as of this encounter Care Teams Sde Relationship Specialty Start Date End Date Shirley Yu MD [address] [place] [address] PCP - General 06/14/16 documented as of this encounter
--- OUTSIDE RECORDS SUMMARY | 2023-12-13 18:33 | XMS_ITS | Encounter Summary ---
Author Organization [facility] Address [address] [place] [address] Care Team Providers Care Senior Product Development Scientist Name Role Phone Shirley Yu MD Primary Care Provider [phone] Reason for Visit * Reason Comments Medications Refill Encounter Details Date Type Department Care Team (Late st Contact Info) Description 11/29/2023 Refill [facility] Endocrinology [address] [place] [address] Olivia Mayorga NP [address] [facility] [address] [place] [address] Medications Refill Social History Tobacco [...] encounter Miscellaneous Notes * Telephone Encounter - Kimberly Nichols RN - 11/30/2023 0746 EDT Not seen since 04/2022- note to send refill requests to pcp Med refused documented in this encounter Plan of Treatment Not on file documented as of this encounter Visit Diagnoses Diagnosis Acquired hypothyroidism- Primary Unspecified hypothyroidism documented in this encounter Care Teams Senior Product Development Scientist Relationship Specialty Start Date End Date Shirley Yu MD [address] [place] [address] PCP - General 06/14/16 documented as of this encounter
--- OUTSIDE RECORDS SUMMARY | 2023-12-13 18:34 | XMS_ITS | Encounter Summary ---
Author Organization [facility] Address [address] [place] [address] Care Team Providers Care Elementary Tutor Name Role Phone Unknown, Provider Primary Care Provider Encounter Details Date Type Department Care Team (Latest Contact Info) Description 06/10/2016 9:13 EST - 06/10/2016 23:59 EST Hospital Encounter [address] [address] Unknown, Provider, Discharge Disposition: Home or Self Care Social History Tobacco Use Types Packs/Day Years Used Date Smoking Tobacco: Never Assessed Sex and Gender Information Value Date Recorded Sex Assigned at Not on file Gender Identity Female 11/24/2021 14:08 EDT Sexual Orientation Not on file documented as of this encounter Discharge Disposition Disposition Code Departure Means Destination Home or Self Custodial documented in this encounter Plan of Treatment Not on file documented as of this encounter Visit Diagnoses Not on filedocumented in this encounter Care Teams Elementary Tutor Relationship Specialty Start Date End Date Unknown, Provider, PCP - General 05/03/16 06/13/16 documented as of this encounter
--- OUTSIDE RECORDS SUMMARY | 2023-12-13 18:34 | XMS_ITS | Encounter Summary ---
Author Organization [facility] Address [address] [place] [address] Care Team Providers Care Yard Hostler Name Role Phone Unknown, Provider Primary Care Provider Encounter Details Date Type Department Care Team (Late st Contact Info) Description 06/10/2016 Results Only [facility]- PRISM [phone] Roberto Shultz, DO [address] [place] [address] Social History Tobacco Use Types Packs/Day Years [...] Date/Time Associated Diagnosis Comments SURGICAL PATHOLOGY Routine 06/10/2016 9:10 EST documented in this encounter Results * SURGICAL PATHOLOGY (06/10/2016 9:10 EST) Pathology Report: SURGICAL PATHOLOGY REPORT Reports generated via electronic interface contain original data; however they are lacking the format of the original report. Caution should be taken when reading/interpret ing unformatted reports. Name: ? JENNIFER WINTERS ? Accession #: ? [id number] ? : ? 1960 (Age: 55) ??F ? Collect Date: ? 06/10/2016 ? Location: ? [facility] ? Receive Date: ? 06/11/2016 ? Provider: ROBERTO SHULTZ DO Copy to: ZOFIA JEAN-BAPTISTE MD ? Final Pathologic Diagnosis: A. colon, ascending, polyp, biopsy: - ??Amorphous and vegetable material only. See comment B. colon, sigmoid, polyp, biopsy: - ??Fragment of hyperplastic polyp. Comment: Part A: deeper sections examined, with no additional finding. Document reviewed and electronically signed by: BERNADETTE SALGADO MD Report ??Date: 06/18/2016 18:59 By the signature above, the attending physician certifies that he/she has personally conducted a gross and/or microscopic examination of the described specimens and rendered or confirmed the above diagnosis. Specimen(s) Received: A. ?Ascending colon 8.0 mm polyp B. ? 5.0 mm sigmoid polyp Clinical History: Hematochezia, screen; clinical diagnosis code: ??K92.2 Gross Description: A. ?Received in formalin labelled with proper patient identification (initials B, P) and A. ascending colon 8.0 mm polyp are two chung-yellow tissues (0.3 x 0.2 x 0.1 cm and 0.3 x 0.3 x 0.1 cm). Entirely submitted in A1. B. ?Received in formalin labelled with proper patient identification (initials B, P) and B. 5.0 mm sigmoid polyp is a single chung-yellow polypoid tissue fragment (0.4 x 0.2 x 0.2 cm). Submitted intact in B1. Ada Ortiz 06/13/2016 9:55 AM End of Report [facility] 06/10/2016 9:10 EST 06/11/2016 9:10 EST Roberto Shultz DO PATHOLOGY ORDERABLES [facility] [address] [place] [address] documented in this encounter Visit Diagnoses Not on filedocumented in this encounter Care Teams Yard Hostler Relationship Specialty Start Date End Date Unknown, Provider, PCP - General 05/03/16 06/13/16 documented as of this encounter
--- OUTSIDE RECORDS SUMMARY | 2023-12-13 18:34 | XMS_ITS | Encounter Summary ---
Author Organization [facility] Address [address] [place] [address] Care Team Providers Care Leather Finisher Name Role Phone Unavailable Primary Care Provider Unavailabl e Encounter Details Date Type Department Care Team (Late st Contact Info) Description 05/23/2005 Results Only [facility] - Maple conversion [address] [place] [address] Arturo Vidal MD [address] [place] [address] [place] [phone] Social History Tobacco Use Types Packs/Day Years Used Date Smoking Tobacco: Never Assessed Sex and Gender Information Value Date Recorded Sex Assigned at Not on file Gender Identity Female 11/24/2021 14:08 EDT Sexual Orientation Not on file documented as of this encounter Plan of Treatment Not on file documented as of this encounter Procedures Procedure Name Priority Date/Time Associated Diagnosis Comments CYTOPATHOLOGY Routine 05/23/2005 0:00 EST documented in this encounter Results * CYTOPATHOLOGY (05/23/2005 0:00 EST) Pathology Report: CYTOPATHOLOGY REPORT Reports generated via electronic interface contain original data; however they are lacking the format of the original report. Caution should be taken when reading/interpreti ng unformatted reports. Name: ? JENNIFER WINTERS ? Accession #: ? [id number] : ? 1960 (Age: 44) ??F ?Collect Date: ? 05/23/2005 Location: ? [facility] ? Receive Date: ? 05/24/2005 Provider: ?ARTURO VIDAL MD Copy to: ? Specimen/Source: ?ThinPrep Pap Test, Vagina, processed on SupremexPrep Imaging System, with manual evaluation Last Menstrual Period: ? Previous Gynecologic Pathology: ? CARLI: 32001 Treatment History: ? Hysterectomy: 2001 ? SPECIMEN ADEQUACY ? Satisfactory for Evaluation - assessment of transformation zone component not applicable ( e.g. atrophy, vaginal sample, hysterectomy) GENERAL CATEGORIZATION ? Negative for Intraepithelial Lesion or Malignancy ? Document reviewed and electronically signed by: ? FADI Barillas(ASCP) ? Report Date: ??05/26/2005 10:59 End of Report [facility] 05/23/2005 05/24/2005 Arturo Vidal MD PATHOLOGY ORDERABLES [facility] [address] [place] [address] documented in this encounter Visit Diagnoses Not on filedocumented in this encounter
--- OUTSIDE RECORDS SUMMARY | 2023-12-13 18:34 | XMS_ITS | Encounter Summary ---
Author Organization [facility] Address [address] [place] [address] Care Team Providers Care Email Administrator Name Role Phone Unavailable Primary Care Provider Unavailabl e Encounter Details Date Type Department Care Team (Late st Contact Info) Description 02/16/2004 Results Only [facility] - Maple conversion [address] [place] [address] Arturo Vidal MD [address] [place] [address] [place] [phone] Social History Tobacco Use Types Packs/Day [...] Priority Date/Time Associated Diagnosis Comments CYTOPATHOLOGY Routine 02/16/2004 0:00 EST documented in this encounter Results * CYTOPATHOLOGY (02/16/2004 0:00 EST) Pathology Report: CYTOPATHOLOGY REPORT Reports generated via electronic interface contain original data; however they are lacking the format of the original report. Caution should be taken when reading/interpreti ng unformatted reports. Name: ? JENNIFER WINTERS ? Accession #: ? [id number] : ? 1960 (Age: 43) ??F ?Collect Date: ? 02/16/2004 Location: ? [facility] ? Receive Date: ? 02/17/2004 Provider: ?ARTURO VIDAL MD Copy to: ? Specimen/Source: ?ThinPrep Pap Test, Vagina Last Menstrual Period: ? Previous Gynecologic Pathology: ? CARLI: 3 Carcinoma: Ovarian Treatment History: ? Hysterectomy ? SPECIMEN ADEQUACY ? Satisfactory for Evaluation - assessment of transformation zone component not applicable ( e.g. atrophy, vaginal sample, hysterectomy) GENERAL CATEGORIZATION ? Negative for Intraepithelial Lesion or Malignancy ? Document reviewed and electronically signed by: ? Lulu Regalado, SCT(ASCP) ? Report Date: ??02/23/2004 16:33 End of Report [facility] 02/16/2004 02/17/2004 Arturo Vidal MD PATHOLOGY ORDERABLES [facility] [address] [place] [address] documented in this encounter Visit Diagnoses Not on filedocumented in this encounter
--- OUTSIDE RECORDS SUMMARY | 2023-12-13 18:34 | XMS_ITS | Encounter Summary ---
Author Organization [facility] Address [address] [place] [address] Care Team Providers Care Physician Relations Specialist Name Role Phone Unavailable Primary Care Provider Unavailabl e Encounter Details Date Type Department Care Team (Late st Contact Info) Description 10/19/2007 Before PRISM Converted Visit (Maple) [facility] - Maple conversion [address] [place], [place] [address] Vinay Miranda MD [address] [facility], [facility] [address] [place] [phone] Social History Tobacco Use Types Packs/Day Years Used Date Smoking Tobacco: Never Assessed Sex and Gender Information Value Date Recorded Sex Assigned at Not on file Gender Identity Female 11/24/2021 14:08 EDT Sexual Orientation Not on file documented as of this encounter Progress Notes * Vinay Miranda MD - 01/09/2009 1140 EDT DIVISION OF VASCULAR SURGERY PROGRESS/FOLLOWUP NOTE - 10/26/2007 Jennifer Bob did not keep her scheduled appointment today. My office will offer her the opportunity for further vascular consultation. Signed by Vinay Miranda MD 11/05/2007 12:21 Vinay Miranda MD programming equipment operator Vascular Surgery - Vinay Miranda MD - ANDI Job ID: [id number] Doc ID: [id number] cc: * Vinay Miranda MD - 01/09/2009 1051 EDT DIVISION OF VASCULAR SURGERY PROGRESS/FOLLOWUP NOTE - 10/19/2007 October 19, 2007 Gerda Elizondo MD [facility] [address] [place] [address] Elizondo: I am writing in regard to your patient, Jennifer Bob. I recently picked up her care from my partner, Dr. Randa Escamilla, who is on leave. This week I performed a diagnostic angiogram for bilateral leg intermittent claudication. She has SFA stents, which were previously placed at [facility]. Unfortunately, these stents have occluded and she has recurrent right leg claudication. Her left iliac artery stent is patent, while she has areas of stenosis in her left SFA. At present, her right leg is limiting her the most. I discussed the situation with the patient and told her there were two options. The first would be to remain conservative and ask her to exercise and to continue refraining from smoking. The second would be to perform a right femoral-popliteal bypass, hopefully with autogenous vein. At this point, she is very interested in surgery. I told her that I would like to obtain cardiac clearance with a stress test prior to considering revascularization of her leg. I tried to contact your office today to discuss this. I had hoped that you would be able to obtain some cardiac clearance for the possiblesurgery. I must say that I am somewhat reluctant to perform a bypass on such a young woman, with her comorbidities, for fear that she will not get an adequate long- term result. I have clearly stressed to the patient that she does have a limb- threatening or life-threatening problem. It does appear that her claudication is very limiting to her. I told her I would see her back in my office in November to have a thorough discussion about the pros and cons of bypass surgery. Thank you for involving me in her vascular care. I would be happy to discuss her case with you at any time. Sincerely yours, Signed by Vinay Miranda MD 10/29/2007 10:32 Vinay Miranda MD programming equipment operator Vascular Surgery - Vinay Miranda MD - Job ID: [id number] Doc ID: [id number] cc: Gerda Elizondo MD documented in this encounter Plan of Treatment Not on file documented as of this encounter Visit Diagnoses Not on filedocumented in this encounter
--- OUTSIDE RECORDS SUMMARY | 2023-12-13 18:34 | XMS_ITS | Encounter Summary ---
Author Organization [facility] Address [address] [place] [address] Care Team Providers Care Projection Technician Name Role Phone Unavailable Primary Care Provider Unavailabl e Encounter Details Date Type Department Care Team (Late st Contact Info) Description 10/01/2007 Before PRISM Converted Visit (Maple) [facility] - Maple conversion [address] [place] [address] Randa Davis MD [address] [facility], [facility] [address] [place] [phone] Social History Tobacco Use Types Packs/Day Years Used Date Smoking Tobacco: Never Assessed Sex and Gender Information Value Date Recorded Sex Assigned at Not on file Gender Identity Female 11/24/2021 14:08 EDT Sexual Orientation Not on file documented as of this encounter Progress Notes * Randa Escamilla MD - 01/09/2009 1133 EDT DIVISION OF VASCULAR SURGERY PROGRESS/FOLLOWUP NOTE - 10/01/2007 Gerda Elizondo MD [facility] [address] [place] [address] Elizondo: Ms. Bob comes in today for a followup appointment. I initially saw her about one month ago in consultation regarding recurrent bilateral lower extremity claudication. She has a number of risk factors for vascular disease including hypertension,diabetes, hyperlipidemia, and smoking. She just quitsmoking one week ago. Her last intervention was at [facility] in December when she underwent right SFA stenting, and she has had previous left iliac stenting as well. After her procedure in December, she states she never really got any better with regard to calf cramping but has had some improvement in some thigh symptoms. She states she has had continued calf claudication since then and finds this to be quite disabling. On her previous exam, she had palpable femoral pulses, 1+ on the left and no palpable right pedal pulses. Her left pedal pulses were 1+ palpable. I talked with her today about the situation and recommended she undergo some arterial imaging to see what the situation was. In our lab today, she had an arterial duplex which revealed occlusion of the right femoral artery stents. Her left iliac stent appears to patent, but she does have stenosis in the distal left SFA as well. Her resting SHEFALI on the right is 0.63 and on the left is 0.85. Impression: Recurrent claudication with evidence of right superficial femoral artery occlusion. Certainly, at this point it sounds like she may need a surgical revascularization to relieve her symptoms. I am very pleased that she has quit smoking and hope that this will be a lasting endeavor. Her other risk factors seem to be managed well at this point. We will go ahead and set her up for an angiogram with my partner, Dr. Miranda, on Tuesday, October 16, 2007. Pending the results of this, further percutaneous and/or surgical revascularization may be necessary for treatment of her recurrent claudication. Sincerely, Signed by Randa Escamilla MD 10/07/2007 16:21 Randa Escamilla MD - Randa Escamilla MD - [facility]I Job ID: [id number] Doc ID: [id number] cc: Gerda Elizondo MD documented in this encounter Plan of Treatment Not on file documented as of this encounter Visit Diagnoses Not on filedocumented in this encounter
--- OUTSIDE RECORDS SUMMARY | 2023-12-13 18:34 | XMS_ITS | Encounter Summary ---
Author Organization [facility] Address [address] [place] [address] Care Team Providers Care Air Export Coordinator Name Role Phone Unavailable Primary Care Provider Unavailabl e Encounter Details Date Type Department Care Team (Late st Contact Info) Description 05/29/2006 Results Only [facility] - Maple conversion [address] [place] [address] Arturo Vidal MD [address] [place] [address] [place] [phone] Social History Tobacco Use Types Packs/Day [...] Priority Date/Time Associated Diagnosis Comments CYTOPATHOLOGY Routine 05/29/2006 0:00 EST documented in this encounter Results * CYTOPATHOLOGY (05/29/2006 0:00 EST) Pathology Report: CYTOPATHOLOGY REPORT Reports generated via electronic interface contain original data; however they are lacking the format of the original report. Caution should be taken when reading/interpreti ng unformatted reports. Name: ? JENNIFER WINTERS ? Accession #: ? [id number] : ? 1960 (Age: 45) ??F ?Collect Date: ? 05/29/2006 Location: ? [facility] ? Receive Date: ? 05/29/2006 Provider: ?ARTURO VIDAL MD Copy to: ? Specimen/Source: ?ThinPrep Pap Test, Vagina, processed on Freedom MeditechPrep Imaging System, with manual evaluation Last Menstrual Period: ? Treatment History: ? Hysterectomy: 2001 ? SPECIMEN ADEQUACY ? Satisfactory for Evaluation - assessment of transformation zone component not applicable ( e.g. atrophy, vaginal sample, hysterectomy) GENERAL CATEGORIZATION ? Negative for Intraepithelial Lesion or Malignancy ? Document reviewed and electronically signed by: ? FADI Mcnamara(ASCP) ? Report Date: ??05/30/2006 17:15 End of Report [facility] 05/29/2006 05/29/2006 Arturo Vidal MD PATHOLOGY ORDERABLES [facility] [address] [place] [address] documented in this encounter Visit Diagnoses Not on filedocumented in this encounter
--- OUTSIDE RECORDS SUMMARY | 2023-12-13 18:34 | XMS_ITS | Encounter Summary ---
Author Organization [facility] Address [address] [place] [address] Care Team Providers Care Speech Language Pathologist Travel Name Role Phone Unavailable Primary Care Provider Unavailabl e Encounter Details Date Type Department Care Team (Late st Contact Info) Description 10/16/2007 8:19 EDT - 10/16/2007 11:59 EDT Hospital Encounter [facility] Radiology - [facility] [address] [place] [address] Randa Davis MD [address] [facility], [address] [place] [phone] Discharge Disposition: Home or Self Care Social History Tobacco Use Types Packs/Day Years Used Date Smoking Tobacco: Never Assessed Sex and Gender Information Value Date Recorded Sex Assigned at Not on file Gender Identity Female 11/24/2021 14:08 EDT Sexual Orientation Not on file documented as of this encounter Discharge Disposition Disposition Code Departure Means Destination Home or Self Care documented in this encounter Plan of Treatment Not on file documented as of this encounter Procedures Procedure Name Priority Date/Time Associated Diagnosis Comments GLUCOSE, GLUCOMETER Routine 10/16/2007 1 5:57 EDT GLUCOSE, GLUCOMETER Routine 10/16/2007 1 2:42 EDT GLUCOSE, GLUCOMETER Routine 10/16/2007 1 0:22 EDT GLUCOSE, GLUCOMETER Routine 10/16/2007 9 :03 EDT documented in this encounter Results * (ABNORMAL) GLUCOSE, GLUCOMETER (10/16/2007 15:57 EDT) Glucose, Fingerstick 180(H) 70 - 100 mg/dl [facility] [id number] Test Performed by Nursing Services [facility] 10/16/2007 15:5 7 EDT 10/17/2007 14:20 EDT Randa Davis MD CHEMISTRY & BLOOD GAS ORDERABLES Performing Organization Address [facility] Co de Phone Number [facility] [address] [place] [address] * (ABNORMAL) GLUCOSE, GLUCOMETER (10/16/2007 12:42 EDT) Glucose, Fingerstick 152(H) 70 - 100 mg/dl [facility] [place] [id number] Test Performed by Nursing Services [facility] 10/16/2007 12:4 2 EDT 10/16/2007 14:34 EDT Randa Davis MD CHEMISTRY & BLOOD GAS ORDERABLES Performing Organization Address [facility] Co de Phone Number [facility] [address] [place] [address] * (ABNORMAL) GLUCOSE, GLUCOMETER (10/16/2007 10:22 EDT) Glucose, Fingerstick 185(H) 70 - 100 mg/dl [facility] [place] [id number] Test Performed by Nursing Services [facility] 10/16/2007 10:2 2 EDT 10/16/2007 10:23 EDT Randa Davis MD CHEMISTRY & BLOOD GAS ORDERABLES Performing Organization Address [facility] Co de Phone Number [facility] [address] [place] [address] * (ABNORMAL) GLUCOSE, GLUCOMETER (10/16/2007 9:03 EDT) Glucose, Fingerstick 131(H) 70 - 100 mg/dl [facility] [employer] [id number] Test Performed by Nursing Services [facility] 10/16/2007 9:03 EDT 10/16/2007 9:09 EDT Randa Davis MD CHEMISTRY & BLOOD GAS ORDERABLES [facility] [address] [place] [address] documented in this encounter Visit Diagnoses Not on filedocumented in this encounter
--- OUTSIDE RECORDS SUMMARY | 2023-12-13 18:34 | XMS_ITS | Encounter Summary ---
Author Organization [facility] Address [address] [place] [address] Care Team Providers Care Global Chief Creative Officer Name Role Phone Gerda Elizondo MD Primary Care Provider [phone] Encounter Details Date Type Department Care Team (Late st Contact Info) Description 04/29/2016 Results Only [facility] [phone] Roberto Shultz, DO [address] [place] [address] Social History Tobacco Use Types Packs/Day Years [...] Date/Time Associated Diagnosis Comments SURGICAL PATHOLOGY Routine 04/29/2016 9:41 EST documented in this encounter Results * SURGICAL PATHOLOGY (04/29/2016 9:41 EST) Pathology Report: SURGICAL PATHOLOGY REPORT Reports generated via electronic interface contain original data; however they are lacking the format of the original report. Caution should be taken when reading/interpreting unformatted reports. Name: ? JENNIFER WINTERS ? Accession #: ? [id number] ? : ? 1960 (Age: 55) ??F ? N #: ? [id number] ? Collect Date: ? 04/29/2016 ? Location: ? [facility] ? Receive Date: ? 04/30/2016 ? Provider: ROBERTO SHULTZ DO Copy to: ZOFIA JEAN-BAPTISTE MD ? Final Pathologic Diagnosis: A. ??DUODENUM, 2ND PORTION, BIOPSY: - Duodenal mucosa with no specific pathologic features. B. ??STOMACH, ANTRUM, BIOPSY: - Gastric mucosa with reactive (chemical) gastropathy. C. ??STOMACH, GREATER CURVE, BIOPSY: - Gastric mucosa with no specific pathologic features. D. 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 - See comment. E. ??RECTUM, POLYP, BIOPSY: - Hyperplastic polyp. ?? Comment: This case has been reviewed at the intradepartmental GI consensus conference. (Dr. Bradley)/chaitanya Document reviewed and electronically signed by: ALEX BRADLEY MD Report ??Date: 05/03/2016 15:54 By the signature above, the attending physician certifies that he/she has personally conducted a gross and/or microscopic examination of the described specimens and rendered or confirmed the above diagnosis. Specimen(s) Received: A. ??2nd portion duodenum biopsy B. ??Antrum biopsy C. ??Greater curve biopsy D. ??R/O Lopez's biopsy E. ??4.0 mm rectal polyp Clinical History: GI bleed Gross Description: A. ?Received in formalin labelled with proper patient identification (initials B, P) and 2nd portion duodenum biopsy are two pale brown tissues, 0.2 x 0.2 x 0.2 cm and 0.4 x 0.2 x 0.1 cm. Entirely submitted in A1. B. ?Received in formalin labelled with proper patient identification (initials B, P) and antrum biopsy are two dull lamas tissues, 0.2 x 0.1 x 0.1 cm and 0.2 x 0.2 x 0.1 cm. Entirely submitted in B1. C. ?Received in formalin labelled with proper patient identification (initials B, P) and greater curve biopsy is a chung-lamas tissue, 0.3 x 0.2 x 0.1 cm. Entirely submitted in C1. D. ?Received in formalin labelled with proper patient identification (initials B, P) and R/O Lopez's biopsy are two pale chung tissues, 0.1 cm in greatest dimension and 0.3 x 0.1 x less than 0.1 cm. Entirely submitted in D1. E. ?Received in formalin labelled with proper patient identification (initials B, P) and 4.0 mm rectal polyp is a chung irregular tissue, 0.2 x 0.2 x 0.1 cm. Entirely submitted in E1. GENTRY Núñez (ASCP) 05/02/2016 8:31 AM End of Report [facility] 04/29/2016 9:41 EST 04/30/2016 9:41 EST Roberto Shultz DO PATHOLOGY ORDERABLES [facility] [address] [place] [address] documented in this encounter Visit Diagnoses Not on filedocumented in this encounter Care Teams Global Chief Creative Officer Relationship Specialty Start Date End Date Gerda Elizondo MD [facility] [address] [place] [address] PCP - General 02/14/15 05/02/16 documented as of this encounter
--- OUTSIDE RECORDS SUMMARY | 2023-12-13 18:34 | XMS_ITS | Encounter Summary ---
Author Organization [facility] Address [address] [place] [address] Care Team Providers Care Car Cleaner Name Role Phone Unavailable Primary Care Provider Unavailabl e Encounter Details Date Type Department Care Team (Late st Contact Info) Description 10/01/[address] [facility] Vascular Surgery - [address] [address] Randa Davis MD [address] [facility], [address] [place] [phone] Social History Tobacco Use Types Packs/Day Years Used Date Smoking Tobacco: Never Assessed Sex and Gender Information Value Date Recorded Sex Assigned at Not on file Gender Identity Female 11/24/2021 14:08 EDT Sexual Orientation Not on file documented as of this encounter Plan of Treatment Not on file documented as of this encounter Procedures Procedure Name Priority Date/Time Associated Diagnosis Comments PROTIME Routine 10/01/2007 12:22 EDT COMPLETE BLOOD COUNT Routine 10/01/2007 12:22 EDT BUN Routine 10/01/2007 12:22 EDT CREATININE Routine 10/01/2007 12:22 EDT documented in this encounter Results * PROTIME (10/01/2007 12:22 EDT) [facility] Pro Time 13.1 12.0 - 15.0 secs [facility] Comment:Coumadin N I.N.R. 1.0 0.9 - 1.1 Ratio [facility] Comment: Moderate Intensity Coumadin INR = 2.0-3.0 Adjustments in anticoagulant therapy dose should be based upon the INR and NOT the Pro Time. Coumadin N 10/01/2007 12:2 2 EDT 10/01/2007 12:25 EDT Randa Davis MD HEMATOLOGY & PF4 O RDERABLES Performing Organization Address [facility] Co de Phone Number [facility] [address] [place] [address] * CREATININE (10/01/2007 12:22 EDT) Pathologist [facility] Creatinine 1.28 0.7 - 1.5 mg/dl [facility] GFR, Calculated 45 ml/min/1.7 3m2 [facility] 10/01/2007 12:2 2 EDT 10/01/2007 12:25 EDT Randa Davis MD CHEMISTRY & BLOOD GAS ORDERABLES Performing Organization Address [facility] Co de Phone Number [facility] [address] [place] [address] * HEMAGRAM (10/01/2007 12:22 EDT) Pathologist [facility] WBC 6.73 4.0 - 12.4 K/cmm [facility] RBC 4.19 3.86 - 5.04 M/cmm [facility] Hemoglobin 12.7 11.6 - 15.2 gm/dl [facility] HCT 38.0 34.9 - 44.4 % [facility] MCV 91 81 - 98 fl [facility] MCH 30.3 26.7 - 33.3 pg [facility] MCHC 33.4 32.1 - 35.9 gm/dl [facility] PLT 251 141 - 320 K/cmm [facility] RDW-CV 14.5 11.7 - 14.6 % [facility] 10/01/2007 12:2 2 EDT 10/01/2007 12:25 EDT Randa Davis MD HEMATOLOGY & PF4 O RDERABLES Performing Organization Address [facility] Co de Phone Number [facility] [address] [place] [address] * (ABNORMAL) BUN (10/01/2007 12:22 EDT) BUN 32(H) 10 - 26 mg/dl [facility] 10/01/2007 12:2 2 EDT 10/01/2007 12:25 EDT Randa Davis MD CHEMISTRY & BLOOD GAS ORDERABLES Performing Organization Address [facility] de Phone Number [facility] [address] [place] [address] documented in this encounter Visit Diagnoses Not on filedocumented in this encounter
--- OUTSIDE RECORDS SUMMARY | 2023-12-13 18:34 | XMS_ITS | Encounter Summary ---
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 Was seeing Dr. Vega at [facility] [place]. Has had multiple lasers both eyes. * Prior Authorization (Routine) - Closed Specialty Diagnoses / Procedures Referred By Dominik mcleod Referred To Contact Ophthalmology Diagnoses Diabetic retinopathy of both eyes ([facility]) Procedures SC INJECT INTRAVITREAL PHARMCOLOGIC SC AFLIBERCEPT INJECTION SC BEVACIZUMAB INJECTION Clinton Leyva P, OD [address] [place] [phone] Erik Morataya MD [address] [place] [address] Referral ID Status Reason Start Date Expiration Date Visits Re quested Visits Authorized [id number] Closed 12/08/2017 1 1 Encounter Details Date Type Department Care Team (Late st Contact Info) Description 12/08/2017 13:00 EDT Office Visit [facility] [place] [address] Erik Morataya MD [address] [place] [phone] Discharge Disposition: Auto Discharge Social History Tobacco [...] Yes 12/08/2017 documented as of this encounter Discharge Diagnoses Diagnosis E10.3593 Type 1 diab with prolif diab 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 Eye Problem NPV diabetic retinopathy. Was seeing Dr. Vega at [facility] [place]. Has had multiple lasers both eyes. HPI Location: Pain: Quality: Severity: Duration: Timing: Lasts: Context: Modifying factors: Associated Signs & Symptoms: Visual Fluctuations: Attestation: Base Eye Exam Visual Acuity (Snellen - Linear) Right Left Dist sc 20/25 20/20 Tonometry (Applanation, 13:39) Right Left Pressure 15 13 Visual Douglas (Counting fingers) Right Left Result Full Full Extraocular Movement Right Left Result Full Full Neuro/Psych Oriented x3: Yes Mood/Affect: Normal Dilation Both eyes: 1.0% Mydriacyl, 2.5% Phenylephrine @ 13:39 Slit Lamp and Fundus Exam Slit Lamp Exam Right Left Lids/Lashes Normal Normal Conjunctiva/Sclera White and quiet White and quiet Cornea Clear Clear Anterior Chamber Deep and quiet Deep and quiet Iris Round and reactive, no rubeosis Round and reactive, no rubeosis Lens Posterior chamber intraocular lens Posterior chamber intraocular lens Vitreous clear no VH, PVD vs VS Fundus Exam Right Left Disc Normal NVD temp rim C/D Ratio 0.3 0.1 Macula +heme and HE, no edema +heme and HE, no edema Vessels Normal Normal Periphery PRP, heme PRP, heme Please refer to large retinal drawing. IMAGING: OCT REPORT Indications: Proliferative diabetic retinopathy Findings: Right Eye Left Eye OCT no DME OCT-A min increased DILLON OCT No DME. Some inner retinal thinning. OCT-A significantly increased DILLON Original test to be found in patients shadow chart IMPRESSION: 1. 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 The NVD have progressed per Dr Leyva. Options: Observe and add laser PRP if vitreal heme recurs, vs add laser PRP now. RBA&C discussed. Patient requests to undergo PRP addition preventively in the left eye. PRP #543 added to peripheral retina. This may or not result in involution of the NVD over the temporal rim. If NVD persists, I would recommend deferring PRP addition, which would be required posterior to areas already treated, until there is evidence of vitreal heme recurrence, as further PRP addition may reduce peripheral VF and night vision. PDR right eye quiescent Monitor. Advised tight BP and BS control. Return in one month for follow-up. Patient would much prefer to follow-up with Dr Leyva, who also is located closer to her home. I, Dr. Erik Morataya, have performed my own HPI and reviewed the tech's ROS. I have also reviewed thepatient's past medical, family, social and surgical history, as well as the patient's medications, allergies, and problem list. I am scribing for Dr. Erik Morataya MD while he is personally performing the service. Erik Morataya MD (Scribe) * Erik Morataya MD - 12/08/2017 1300 EDT Oph Retinal Laser Note Jennifer Snyder is here and consented to the following: Procedure PRP Indication: PDR Side: Left Eye Surgeon: Erik Morataya MD PROCEDURE: Anesthesia Type: Topical Proparacine HCl 0.4% Ophthalmic solution The patient was taken to the laser room where a total of 543 spots of 0.1 duration and green wavelength were placed. Lens used: 20D lens. Power: 180-250 Spot size: DONALDO I certify that a Final Verification has been performed by the surgical team immediately prior to this procedure to verbally confirm patient identity, procedure and when applicable, site. Name of Vat Overhauler: Dr. Erik Morataya Post op diagnosis/findings: PDR Disposition/ Complications: The patient tolerated the procedure well and left the office in good condition. Followup/ Instructions: Follow up with Dr. 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 Medication Sig Dispensed Refills Start Date End Date dabigatran etexilate (PRADAXA) 150 mg capsule capsule Take 150 mg by mouth 2 times daily. magnesium oxide (MAG-OX) 400 mg (241.3 mg magnesium) tablet Take 250 mg by mouth daily. aspirin chewable 81 mg tablet Take 81 mg by mouth daily. citalopram (CELEXA) 20 mg tablet Take 20 mg by mouth daily. losartan (COZAAR) 100 mg tablet Take 100 mg by mouth daily. pantoprazole (PROTONIX) 40 mg tablet Take 40 mg by mouth daily. insulin lispro (HUMALOG) 100 unit/mL vial Inject into the skin as needed for High Blood Sugar (on insulin pump). 12/10/2021 levothyroxine (SYNTHROID) 125 mcg tablet Take 125 mcg by mouth daily. 12/06/2021 simvastatin (ZOCOR) 40 mg tablet Take 40 mg by mouth daily. 12/06/2021 cilostazol (PLETAL) 100 mg tablet Take 100 mg by mouth 2 times daily. 12/06/2021 carvedilol (COREG) 12.5 mg tablet Take 12.5 mg by mouth 2 times daily. 10/28/2021 added in this encounter Eye Exam Visual Acuity (Snellen - Linear) Right eye Left eye Dist sc 20/25 20/20 Tonometry (Applanation, 13:39) Right eye Left eye Pressure 15 13 Visual Douglas (Counting fingers) Right eye Left eye Full Full Extraocular Movement Right eye Left eye Full Full Neuro/Psych Oriented x3: Yes Mood/Affect: Normal Dilation Both eyes: 1.0% Mydriacyl, 2 .5% Phenylephrine @ 13:39 Slit Lamp Exam Right eye Left eye Lids/Lashes Normal Normal Conjunctiva/Sclera White and quiet White and flavio et Cornea Clear Clear Anterior Chamber Deep and quiet Deep and quiet Iris Round and reactive, no rubeosis Round and reactive, no rubeosis Lens Posterior chamber in traocular lens Posterior chamber intraocular lens Vitreous clear no VH, PVD vs VS Fundus Exam Right eye Left eye Disc Normal NVD temp rim C/D Ratio 0.3 0.1 Macula +heme and HE, no edema +heme and HE, no edema Vessels Normal Normal Periphery PRP, heme PRP, heme Care Teams Bridge Leverman Relationship Specialty Start Date End Date Shirley Yu MD [address] [place] [address] PCP - General 06/14/16 documented as of this encounter
--- OUTSIDE RECORDS SUMMARY | 2023-12-13 18:34 | XMS_ITS | Encounter Summary ---
Author Organization [facility] Address [address] [place] [address] Care Team Providers Care Cartridge Maker Name Role Phone Unavailable Primary Care Provider Unavailabl e Encounter Details Date Type Department Care Team (Late st Contact Info) Description 10/08/2001 Results Only [facility] - [facility] conversion [address] [place] [address] Arturo Vidal MD [address] [facility] [address] [place] [address] [place] [id number] Social History Tobacco Use Types Packs/Day [...] Date/Time Associated Diagnosis Comments SURGICAL PATHOLOGY Routine 10/08/2001 0:00 EDT documented in this encounter Results * SURGICAL PATHOLOGY (10/08/2001 0:00 EDT) Pathology Report: SURGICAL PATHOLOGY REPORT Reports generated via electronic interface contain original data; however they are lacking the format of the original report. Caution should be taken when reading/interpreti ng unformatted reports. Name: ? JENNIFER BOB ? Accession #: ? [id number] ? : ? 1960 (Age: 40) ??F ? Collect Date: ? 10/08/2001 ? Location: ? [facility] ? Receive Date: ? 10/10/2001 ? Provider: ARTURO VIDAL MD Copy to: LIZZY JEAN-BAPTISTE MD ? Final Pathologic Diagnosis: ? Skin of perineum, biopsy: ? 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 ??See comment. Comment: ? Both portions of tissue show high grade squamous intraepithelial neoplasia (ie. ??squamous cell carcinoma in situ). ??Dr. Rojas Stephens has reviewed this case and agrees with the diagnosis. ??(Dr. Padron)/dtl Document reviewed and electronically signed by: Maribeth Padron MD Report ??Date: 10/15/2001 17:34 By the signature above, the attending physician certifies that he/she has personally conducted a gross and/or microscopic examination of the described specimens and rendered or confirmed the above diagnosis. Specimen(s) Received: ? 5 mm lesion on perineum - ? condyloma Clinical History: ? Lesion on perineum Gross Description: ? The specimen is initially received with the container labelled Jennifer Bob and the requisition listed as Nataly Healy. ??In accordance with the Laboratory Specimen Rejection Policy and laboratory Accountability policy, the specimen was verified to be that of Jennifer Escotones and a new requisition with the correct patient name and information is submitted from the Pathology Department at [facility]. ? Received in formalin labelled Bob and perineum are two portions of skin measuring 0.6 x 0.5 x 0.3 cm and 0.5 x 0.3 x 0.2 cm. ??The surface of both is irregular and granular. ??The largest fragment is bisected and the specimen is entirely submitted in one cassette. ??(Dr. Escobar-JHOAN)/edr End of Report TAL VERAS 10/08/2001 10/10/2001 8:4 1 EDT Arturo Vidal MD PATHOLOGY ORDERABLES Performing Organization Address City/State/[facility] Co de Phone Number TAL VERAS [address] [place] [address] documented in this encounter Visit Diagnoses Not on filedocumented in this encounter
--- OUTSIDE RECORDS SUMMARY | 2023-12-13 18:34 | XMS_ITS | Encounter Summary ---
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 French Cord Name Role Phone Unavailable Primary Care Provider Unavailabl e Encounter Details Date Type Department Care Team (Late st Contact Info) Description 10/01/2007 10:42 EDT - 10/01/2007 11:59 EDT Hospital Encounter [facility] [address] [place] [address] Randa Davis MD [address] [place] [address], [address] [place] [id number] Discharge Disposition: Auto Discharge Social History Tobacco Use Types Packs/Day Years Used Date Smoking Tobacco: Never Assessed Sex and Gender Information Value Date Recorded Sex Assigned at Not on file Gender Identity Female 11/24/2021 14:08 EDT Sexual Orientation Not on file documented as of this encounter Discharge Disposition Disposition Code Departure Means Destination Auto Discharge documented in this encounter Plan of Treatment Pending Results Name Type Priority Associated Diagnoses Date /Time CYTOPATHOLOGY Pathology Routine 03/12/2009 0:00 EST CYTOPATHOLOGY Pathology Routine 03/12/2009 0:00 EST Scheduled Orders Name Type Priority Associated Diagnoses Orde r Schedule CYTOPATHOLOGY Pathology Routine For medicat ions that can be administered at any time during the hospitalization for visit such as immunizations. for 1 Occurrences starting 03/13/2009 CYTOPATHOLOGY Pathology Routine For medicat ions that can be administered at any time during the hospitalization for visit such as immunizations. for 1 Occurrences starting 03/13/2009 documented as of this encounter Procedures Procedure Name Priority Date/Time Associated Diagnosis Comments CYTOPATHOLOGY Routine 03/12/2009 0:00 EST SURGICAL PATHOLOGY Routine 02/18/2008 0: 00 EST VL LOWER VENOUS (DVT) UNILATERAL 10/16/2007 15:13 EDT IR ABDOMINAL AORTA 10/16/2007 12 :00 EDT VL LOWER ARTERIAL DUPLEX BILATERAL 10/01/2007 11:45 EDT documented in this encounter Results * CYTOPATHOLOGY (03/12/2009 0:00 EST) Pathology Report: CYTOPATHOLOGY REPORT ? Reports generated via electronic interface contain original data; ? however they are lacking the format of the original report. ? Caution should be taken when reading/interpreti ng unformatted reports. ? Name: ? JENNIFER BOB ? Accession #: ? [id number] ? : ? 1960 (Age: 48) ??F ?Collect Date: ? 03/12/2009 ? Location: ? [facility] ? Receive Date: ? 03/13/2009 ? Provider: ?ZOFIA BERRIAN MD ? Copy to: ? Specimen/Source: ?Pap Test, Vagina, ThinPrep Imaging System with manual ?? evaluation ? Last Menstrual Period: ? 2002 ? Previous Gynecologic Pathology: ? HSIL ? Treatment History: ? Hysterectomy ? SPECIMEN ADEQUACY ? Satisfactory for Evaluation ? - assessment of transformation zone component not applicable ( e.g. atrophy, ? vaginal sample, hysterectomy) ? GENERAL CATEGORIZATION ? Negative for Intraepithelial Lesion or Malignancy ? Document reviewed and electronically signed by: ? Erik Stumler, CT(ASCP) ? Report Date: ??03/17/2009 15:27 ? End of Report ? TLA [facility] 03/12/2009 03/13/2009 Zofia Yu MD PATHOLOGY ORDERABLES [facility] [address] [place] [address] * SURGICAL PATHOLOGY (02/18/2008 0:00 EST) Pathology Report: SURGICAL PATHOLOGY REPORT ? Reports generated via electronic interface contain original data; ? however they are lacking the format of the original report. ? Caution should be taken when reading/interpreti ng unformatted reports. ? Name: ? JENNIFER BOB ? Accession #: ? [id number] ? : ? 1960 (Age: 47) ??F ? Collect Date: ? 02/18/2008 ? Location: ? [facility] ? Receive Date: ? 02/19/2008 ? Provider: JONNATHAN TINO MD ? Copy to: HILARIA READY MD ? Final Pathologic Diagnosis: ? Colon, 20 cm, polyp, biopsy: ? - Hyperplastic polyp. ? Document reviewed and electronically signed by: ? [facility] ? Report ??Date: 02/20/2008 16:58 ? By the signature above, the attending physician certifies that he/she has ? personally conducted a gross and/or microscopic examination of the described ? specimens and rendered or confirmed the above diagnosis. ? Specimen(s) Received: ? Polyp 20 cm ? Clinical History: ? GI bleed, anemia ? Gross Description: ? Received in Leonardoe's fixative labelled Bob and 20 cm bx polyp are two chung-pink soft tissue fragments averaging 0.2 x 0.2 x 0.2 cm. ??The specimen ?? is entirely submitted in one cassette. (Kostas Reynoso/mpl ? End of Report ? [facility] 02/18/2008 02/19/2008 14: 21 EST Jonnathan Powers MD PATHOLOGY ORDERABLE S [facility] [address] [place] [address] * VL LOWER VENOUS (DVT) UNILATERAL (10/16/2007 15:13 EDT) Anatomical Region Laterality Modality Other 10/16/2007 15:1 3 EDT Narrative 09/21/2008 11:46 EDT RT FEM POP GSV LOWER EXTREMITY VENOUS DUPLEX ULTRASOUND PROCEDURE: ??Unilateral Lower Extremity Venous Duplex. Common femoral, proximal profunda femoral, femoral, popliteal, posterior tibial, peroneal, and greater saphenous veins are routinely examined with 2D compression, color and spectral Doppler. [address]489. INDICATION: Pre-op cardiovascular exam. HISTORY: ?Catheterization today via left groin. SONOGRAPHIC FINDINGS RIGHT: ?? All veins demonstrate normal compressibility. ?? GSV .37 prox, .20 mid thigh, .32 low thigh, .23 mid calf, .18 ankle. Apparent dual GSV outside of sheath and with more branches .34 to .28 SFJ to knee. ??LSV .15. LEFT: ?All veins demonstrate normal compressibility. ?? GSV .31 to .23 in high thigh, not visible in mid to low thigh. IMPRESSION No evidence of deep or superficial venous thrombosis in the right lower extremity. ??Right greater saphenous small caliber at mid thigh level. ??Dual greater saphenous may be suitable for harvest. ??Left great saphenous unsuitable for harvest. Procedure Note Neel Mckay MD - 09/21/2008 RT FEM POP GSV LOWER EXTREMITY VENOUS DUPLEX ULTRASOUND PROCEDURE: Unilateral Lower Extremity Venous Duplex. Common femoral, proximal profunda femoral, femoral, popliteal, posterior tibial, peroneal, and greater saphenous veins are routinely examined with 2D compression, color and spectral Doppler. [id number]. INDICATION: Pre-op cardiovascular exam. HISTORY: Catheterization today via left groin. SONOGRAPHIC FINDINGS RIGHT: All veins demonstrate normal compressibility. GSV .37 prox, .20 mid thigh, .32 low thigh, .23 mid calf, .18 ankle. Apparent dual GSV outside of sheath and with more branches .34 to .28 SFJ to knee. LSV .15. LEFT: All veins demonstrate normal compressibility. GSV .31 to .23 in high thigh, not visible in mid to low thigh. IMPRESSION No evidence of deep or superficial venous thrombosis in the right lower extremity. Right greater saphenous small caliber at mid thigh level. Dual greater saphenous may be suitable for harvest. Left great saphenous unsuitable for harvest. Vinay Miranda MD G VASCULAR ORDErnestina AGUILERA * IR ABDOMINAL AORTA (10/16/2007 12:00 EDT) Anatomical Region Laterality Modality Other 10/16/2007 12:0 0 EDT Narrative 09/21/2008 14:16 EDT CLAUDICATION Procedure: 1. Abdominal aortogram. 2. Bilateral lower extremity arteriogram. 3. Selective catheter placement into the abdomen or from left common femoral artery approach. Findings: 1. The infrarenal abdominal aorta is patent but relatively small in caliber. Three sets of paired lumbar arteries and a patent JIMI are visualized. 2. Patent left common iliac artery stent with very mild stenosis beyond the stent just above the left iliac bifurcation. The left external iliac artery is widely patent. The left internal iliac is patent. 3. The right common, internal external iliac arteries are widely patent. 4. On the right the common femoral and profunda widely patent. The SFA is occluded from its origin. The previous right SFA stents are completely occluded. The popliteal artery above the knee reconstitutes by profunda collaterals with minimal retrograde flow into the distal SFA below the stents. There is three-vessel arterial runoff in the right calf with the anterior tibial artery continuous with the dorsalis pedis and the posterior tibial continuous with the plantar arteries. 5. On the left common femoral and profunda femoral arteries are without stenosis. The SFA is small but patent with 2 focal TASC A stenoses in its mid segment. The popliteal artery above and [id number] is without stenosis. There is three-vessel arterial runoff in the right calf with the anterior tibial artery continuous with the dorsalis pedis and the posterior tibial continuous with the plantar arteries. Indication: The patient has a history of peripheral arterial disease with right leg intermittent claudication. ??Previously she is status post right SFA angioplasty and stenting and left iliac angioplasty and stenting at an outside hospital. She has recurrent right greater than left leg claudication with a duplex showing occlusion of her right SFA stents. The patient presents for a diagnostic and possible interventional arteriogram understanding the risks and benefits of the procedure. Because of a reduced GFR she was treated with intravenous sodium bicarbonate prophylaxis. Procedure description: After being identified the patient was transferred to the angiography suite and placed supine on the table. Both groins were prepped and draped in sterile fashion. The patient received conscious sedation under my direction and was continuously monitored for heart rate, blood pressure, and oxygen saturation. After infiltrating the groin with lidocaine, I accessed the left common femoral artery by modified Seldinger technique under fluoroscopic guidance. ??A 4 Fr sheath and Contra catheter were placed and an infrarenal aortogram and pelvic angiogram was performed using DSA technique with Isovue contrast. ??Bilateral lower extremity arteriography was performed with the catheter positioned in the infrarenal aorta. As described above the infrarenal aorta is small but patent. The right common, internal, and external iliac arteries are free of stenosis. The left common iliac artery stent is patent with a very minor stenosis distal to the stent at the iliac bifurcation. Left internal and external iliac arteries are free of stenosis. The catheter was positioned at the aortic bifurcation in the bilateral lower extremity angiogram was performed. The right common femoral profunda are patent while the SFA is occluded at its origin. There is no flow in the previous right SFA stents. The popliteal artery constitutes by profunda collaterals and there is three-vessel or tear runoff in the calf to the foot. The left common femoral and profunda are without stenosis. The left SFA is small but patent with 2 areas of significant stenosis in its mid segment. Popliteal artery is patent and there is three-vessel arterial runoff into the left foot. The sheath was removed and hemostasis was achieved with a combination of manual compression and a Jamil patch. ??A sterile dressing was applied. The patient tolerated the procedure well without apparent complication and was sent to recovery in good condition. Procedure Note Vinay Miranda MD - 09/21/2008 CLAUDICATION Procedure: 1. Abdominal aortogram. 2. Bilateral lower extremity arteriogram. 3. Selective catheter placement into the abdomen or from left common femoral artery approach. Findings: 1. The infrarenal abdominal aorta is patent but relatively small in caliber. Three sets of paired lumbar arteries and a patent JIMI are visualized. 2. Patent left common iliac artery stent with very mild stenosis beyond the stent just above the left iliac bifurcation. The left external iliac artery is widely patent. The left internal iliac is patent. 3. The right common, internal external iliac arteries are widely patent. 4. On the right the common femoral and profunda widely patent. The SFA is occluded from its origin. The previous right SFA stents are completely occluded. The popliteal artery above the knee reconstitutes by profunda collaterals with minimal retrograde flow into the distal SFA below the stents. There is three-vessel arterial runoff in the right calf with the anterior tibial artery continuous with the dorsalis pedis and the posterior tibial continuous with the plantar arteries. 5. On the left common femoral and profunda femoral arteries are without stenosis. The SFA is small but patent with 2 focal TASC A stenoses in its mid segment. The popliteal artery above and [id number] is without stenosis. There is three-vessel arterial runoff in the right calf with the anterior tibial artery continuous with the dorsalis pedis and the posterior tibial continuous with the plantar arteries. Indication: The patient has a history of peripheral arterial disease with right leg intermittent claudication. Previously she is status post right SFA angioplasty and stenting and left iliac angioplasty and stenting at an outside hospital. She has recurrent right greater than left leg claudication with a duplex showing occlusion of her right SFA stents. The patient presents for a diagnostic and possible interventional arteriogram understanding the risks and benefits of the procedure. Because of a reduced GFR she was treated with intravenous sodium bicarbonate prophylaxis. Procedure description: After being identified the patient was transferred to the angiography suite and placed supine on the table. Both groins were prepped and draped in sterile fashion. The patient received conscious sedation under my direction and was continuously monitored for heart rate, blood pressure, and oxygen saturation. After infiltrating the groin with lidocaine, I accessed the left common femoral artery by modified Seldinger technique under fluoroscopic guidance. A 4 Fr sheath and Contra catheter were placed and an infrarenal aortogram and pelvic angiogram was performed using DSA technique with Isovue contrast. Bilateral lower extremity arteriography was performed with the catheter positioned in the infrarenal aorta. As described above the infrarenal aorta is small but patent. The right common, internal, and external iliac arteries are free of stenosis. The left common iliac artery stent is patent with a very minor stenosis distal to the stent at the iliac bifurcation. Left internal and external iliac arteries are free of stenosis. The catheter was positioned at the aortic bifurcation in the bilateral lower extremity angiogram was performed. The right common femoral profunda are patent while the SFA is occluded at its origin. There is no flow in the previous right SFA stents. The popliteal artery constitutes by profunda collaterals and there is three-vessel or tear runoff in the calf to the foot. The left common femoral and profunda are without stenosis. The left SFA is small but patent with 2 areas of significant stenosis in its mid segment. Popliteal artery is patent and there is three-vessel arterial runoff into the left foot. The sheath was removed and hemostasis was achieved with a combination of manual compression and a Jamil patch. A sterile dressing was applied. The patient tolerated the procedure well without apparent complication and was sent to recovery in good condition. Randa Davis MD [facility] IR ORDERABLES * VL LOWER ARTERIAL DUPLEX BILATERAL (10/01/2007 11:45 EDT) Anatomical Region Laterality Modality Other 10/01/2007 11:4 5 EDT Narrative 09/21/2008 11:44 EDT FUV JOCELYN CLAUDICATION GLB + KEYLA W/ LOWER EXTREMITY ARTERIAL DUPLEX ULTRASOUND PROCEDURE: ??Bilateral Lower Extremity Arterial Duplex. Common femoral, proximal profunda femoral, femoral, popliteal, anterior tibial, posterior tibial, peroneal, and dorsalis pedis are routinely examined with 2D, color and spectral Doppler. 88771. ?? Single level physiologic arterial evaluation (SHEFALI). 12676. INDICATION: Atherosclerosis, Claudication. HISTORY: ?HPT, HCH, DM, PVD, Previous arterial procedure. ?? Right SFA stents x2, Left iliac stent. PULSE WAVE DOPPLER FINDINGS RIGHT Right EIA:Sys: ?? 123 cm/sec ??Triphasic. Right MOLD CLEANER:Sys: ?? 143 cm/sec ??Triphasic. Right SFP:Sys: ?40 cm/sec ??Monophasic. Right SFM:Sys: ? 0 cm/sec ??Absent. Right SFD:Sys: ? 0 cm/sec ??Absent. Right POP:Sys: ?40 cm/sec ??Monophasic. Comment: Occluded SFA stenting. LEFT Left EIA: Sys: ?? 168 cm/sec Left MOLD CLEANER: Sys: ?? 176 cm/sec Left SFP: Sys: ?? 123 cm/sec Left SFM: Sys: ?? 114 cm/sec Left SFD: Sys: ?? 259 cm/sec Comment: Patent external iliac stenting. SEGMENTAL PRESSURES (mmHg) and SHEFALI RIGHT:Brachial: ??118 ??Ankle: ?? 74 ??SHEFALI: ??0.63 LEFT: Brachial: ??118 ??Ankle: ??100 ??SHEFALI: ??0.85 PLETHYSMOGRAPHIC FINDINGS RIGHT: ?? Abnormal pulse volume recordings at the following level(s): Ankle. LEFT: ?Abnormal pulse volume recordings at the following level(s): Ankle. IMPRESSION RIGHT: ?? Abnormal resting SHEFALI. Duplex demonstrates occluded SFA stenting with monophasic flow present in popliteal artery. LEFT: ?Abnormal resting SHEFALI. Duplex demonstrates patent external iliac artery stenting. Elevated velocities identified within distal SFA suggestive of hemodynamically significant stenosis. Procedure Note Rambo Collins MD - 09/21/2008 FUV JOCELYN CLAUDICATION GLB + KEYLA W/ LOWER EXTREMITY ARTERIAL DUPLEX ULTRASOUND PROCEDURE: Bilateral Lower Extremity Arterial Duplex. Common femoral, proximal profunda femoral, femoral, popliteal, anterior tibial, posterior tibial, peroneal, and dorsalis pedis are routinely examined with 2D, color and spectral Doppler. 40228. Single level physiologic arterial evaluation (SHEFALI). 21600. INDICATION: Atherosclerosis, Claudication. HISTORY: HPT, HCH, DM, PVD, Previous arterial procedure. Right SFA stents x2, Left iliac stent. PULSE WAVE DOPPLER FINDINGS RIGHT Right EIA:Sys: 123 cm/sec Triphasic. Right MOLD CLEANER:Sys: 143 cm/sec Triphasic. Right SFP:Sys: 40 cm/sec Monophasic. Right SFM:Sys: 0 cm/sec Absent. Right SFD:Sys: 0 cm/sec Absent. Right POP:Sys: 40 cm/sec Monophasic. Comment: Occluded SFA stenting. LEFT Left EIA: Sys: 168 cm/sec Left MOLD CLEANER: Sys: 176 cm/sec Left SFP: Sys: 123 cm/sec Left SFM: Sys: 114 cm/sec Left SFD: Sys: 259 cm/sec Comment: Patent external iliac stenting. SEGMENTAL PRESSURES (mmHg) and SHEFALI RIGHT:Brachial: 118 Ankle: 74 SHEFALI: 0.63 LEFT: Brachial: 118 Ankle: 100 SHEFALI: 0.85 PLETHYSMOGRAPHIC FINDINGS RIGHT: Abnormal pulse volume recordings at the following level(s): Ankle. LEFT: Abnormal pulse volume recordings at the following level(s): Ankle. IMPRESSION RIGHT: Abnormal resting SHEFALI. Duplex demonstrates occluded SFA stenting with monophasic flow present in popliteal artery. LEFT: Abnormal resting SHEFALI. Duplex demonstrates patent external iliac artery stenting. Elevated velocities identified within distal SFA suggestive of hemodynamically significant stenosis. Randa Davis MD IMG VASCULAR OR DERABLES documented in this encounter Visit Diagnoses Not on filedocumented in this encounter
--- OUTSIDE RECORDS SUMMARY | 2023-12-13 18:34 | XMS_ITS | Encounter Summary ---
Author Organization [facility] Address [address] [place] [address] Care Team Providers Care Svp Monetization Name Role Phone Unavailable Primary Care Provider Unavailabl e Encounter Details Date Type Department Care Team (Late st Contact Info) Description 08/29/2007 Before PRISM Converted [facility] [address] [place] [address] Randa Davis MD [address] [facility], [facility] [address] [place] [phone] Social History Tobacco Use Types Packs/Day Years Used Date Smoking Tobacco: Never Assessed Sex and Gender Information Value Date Recorded Sex Assigned at Not on file Gender Identity Female 11/24/2021 14:08 EDT Sexual Orientation Not on file documented as of this encounter Consult Notes * Randa Escamilla MD - 01/05/2009 1523 EDT DIVISION OF VASCULAR SURGERY CONSULTATION - 08/29/2007 Gerda Elizondo MD [facility] [address] [place] [address] Elizondo: I am seeing your patient, Jennifer Bob, in consultation as requested regarding recurrent bilaterallower extremity claudication. As you know she is a 46woman with significant risk factors for vascular disease including hypertension, diabetes, hyperlipidemia, and smoking. She has undergone numerousprocedures for bilateral lower extremity claudication at [facility] beginning nearly two years ago. She states thatcurrently she is having bilateral lower extremity calf claudication, right greater than left. Her calf cramping starts after about 10 to 15 steps of walking. She develops pain that requires her to stop walking, which does relieve the pain within a minute. She states that her pain is worse with an incline and will happen by the time she is on the third step. She denies any rest pain or history of ulcers in her feet. Her initial lower extremity intervention was in November 2005 and was a left common iliac stent. One month later she underwent a right SFA and underwent a repeat right SFA stent in December 2006. She does state that she had some improvement in what used to be hip and thigh symptoms but has had persistent calf claudication that never really improved after these procedures. Past medical history: 1. Hypertension. 2. Insulin dependent diabetes x30 years. 3. Hyperlipidemia. 4. Chronic kidney disease, most recent creatinine 1.4. 5. Cervical disk disease. 6. Claudication. 7. Carotid disease. Past surgical history: 1. Bilateral carotid endarterectomies. 2. Left common iliac artery stents and right SSA stenting x2 as above. 3. Total abdominal hysterectomy and bilateral salpingo-oophorectomy for ovarian cyst. 4. Bilateral rotator cuffs. Medications include aspirin, Humalog, glucagon, Levoxyl, Lexapro, lisinopril, niacin, Plavix. ALLERGIES TO PENICILLIN, THOUGH SHE DOES NOT RECALL THE ALLERGY IT WAS WHEN SHE WAS VERY YOUNG. Social history: Patient smoked one and a half packs of cigarettes a day for 30 years but has currently cut down to four cigarettes a day. She denies significant alcohol use. 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 Family history is positive for stroke and heart disease. Her father of myocardial infarction at age 60. There is no family history of abdominal aneurysm. Review of systems: Patient denies any recent change in appetite or weight loss. There is no historyof exertional chest painor shortness of breath. She denies any recent fever, cough, or sore throat.There are no visual changes. She denies any history of abnormal vaginal bleeding. She has leg pain as above but denies any leg swelling. She denies any history of blood in her stools or recent nausea, vomiting, constipation, or diarrhea. There is no history of hematuria or dysuria. She denies any history of skin cancers. There is no history of seizures or other neurologic disorder. There is no history of easy bleeding. On physical examination, she appears to be in no acute distress. She does appear older than her stated age. She lists her height as 5 feet 7 inches and weight at 200 pounds. Blood pressure is 148/78 bilaterally. She has a soft left carotid bruit and well-healedbilateral carotid incisions. Her lungsare clear bilaterally. Her heart is regular without murmur. Her abdomen is soft and nontender, and there is no pulsatile mass. She has 2+ right femoral pulse and 1+ left femoral pulse. I am unable topalpate her rightpopliteal pulse. She has palpable left dorsalis pedis and posterior tibial pulses.I am able to palpate her right pedal pulse, but she does have biphasic Doppler signals bilaterally. There is no evidence of ulcers or gangrene. She is neurologically intact. Impression: Recurrent bilateral lower extremity calf claudication, right greater than left. I do not have access to films or official angiogram reports from her recent interventions and will try to obtain these. Certainly it does sound like she is becoming significantly debilitated by her symptoms and is now on disability because of it. Certainly with claudication of this severity, further evaluation for potential intervention is warranted. If she is a candidate for lower extremity bypass and has failed previous interventions as above, this may be the next step for her. I would, however, really like to evaluate her more fully prior to scheduling anymore invasive angiography. I have asked her to sign a release so we can get the angiogram sent over from [facility]. I would also like to bring her back to our vascular lab and do some arterial duplex of both lower extremities as well as exercise pulse volume recordings to document the degree of arterial insufficiency and localize the problem. If, indeed, she does have evidence of recurrent SFA disease, then repeat angiography would be unnecessary. If she has anymore interventional or more likely open surgical revascularizationoptions. I also talked with her about the use of Pletal which can sometimes help increase the walking distance in claudicants. She has not tried this in the past, and I think she would be a good candidate forthis medication. I wrote her a prescription for 100 mg twice daily, and she may need results in thenext two to three months. I will see her back once we get the angiograms from [facility], and she is to come back here for further evaluation in our vascular lab. Thank you again for your referral of this patient. Please let me know if I can be of further assistance. Sincerely, Signed by Randa Escamilla MD 09/06/2007 13:21 Randa Escamilla MD - Randa Escamilla MD - ANDI Job ID: [id number] Doc ID: [id number] cc: Gerda Elizondo MD documented in this encounter Plan of Treatment Not on file documented as of this encounter Visit Diagnoses Not on filedocumented in this encounter
--- OUTSIDE RECORDS SUMMARY | 2023-12-13 18:34 | XMS_ITS | Encounter Summary ---
Author Organization [facility] Address [address] [place] [address] Care Team Providers Care Financial Auditor Name Role Phone Unavailable Primary Care Provider Unavailabl e Encounter Details Date Type Department Care Team (Late st Contact Info) Description 06/14/2001 Results Only [facility] - Maple conversion [address] [place] [address] Arturo Vidal MD [address] [place] [phone] Social History Tobacco Use Types Packs/Day [...] Priority Date/Time Associated Diagnosis Comments CYTOPATHOLOGY Routine 06/14/2001 0:00 EST documented in this encounter Results * CYTOPATHOLOGY (06/14/2001 0:00 EST) Pathology Report: CYTOPATHOLOGY REPORT Reports generated via electronic interface contain original data; however they are lacking the format of the original report. Caution should be taken when reading/interpreti ng unformatted reports. Name: ? JENNIFER WINTERS ? Accession #: ? [id number] : ? 1960 (Age: 40) ??F ?Collect Date: ? 06/14/2001 Location: ? [facility] ? Receive Date: ? 06/15/2001 Provider: ?ARTURO VIDAL MD Copy to: ? Specimen/Source: ?ThinPrep Pap Test, Source Not Provided Last Menstrual Period: ? 05/29/01 Menstrual/Pregnanc y Status: ? Regular Other: ? Additional clinical information: Pelvic mass, ? ovarian ca. ? SPECIMEN ADEQUACY ? Satisfactory for Evaluation - transformation zone component present GENERAL CATEGORIZATION ? Negative for Intraepithelial Lesion or Malignancy ? Document reviewed and electronically signed by: ? Lulu Regalado, SCT(ASCP) ? Report Date: ??06/20/2001 09:47 End of Report [facility] 06/14/2001 06/15/2001 Arturo Vidal MD PATHOLOGY ORDERABLES [facility] [address] [place] [address] documented in this encounter Visit Diagnoses Not on filedocumented in this encounter
--- OUTSIDE RECORDS SUMMARY | 2023-12-13 18:34 | XMS_ITS | Encounter Summary ---
Author Organization [facility] Address [address] [place] [address] Care Team Providers Care Senior Trial Attorney Name Role Phone Unavailable Primary Care Provider Unavailabl e Encounter Details Date Type Department Care Team (Late st Contact Info) Description 12/13/2011 Results Only [facility] Laboratory Services - [facility] [address], [place] [phone] Shirley Yu MD [address] [place], [place] [id number] Social History Tobacco Use Types Packs/Day Years Used Date Smoking Tobacco: Never Assessed Sex and Gender Information Value Date Recorded Sex Assigned at Not on file Gender Identity Female 11/24/2021 14:08 EDT Sexual Orientation Not on file documented as of this encounter Plan of Treatment Not on file documented as of this encounter Procedures Procedure Name Priority Date/Time Associated Diagnosis Comments PAP TEST- RESULT ONLY Routine 12/13/2011 0:00 EDT documented in this encounter Results * PAP TEST- RESULT ONLY (12/13/2011 0:00 EDT) Pathology Report: CYTOPATHOLOGY REPORT Reports generated via electronic interface contain original data; however they are lacking the format of the original report. Caution should be taken when reading/interpreti ng unformatted reports. Name: ? JENNIFER WINTERS ? Accession #: ? [id number] ? : ? 1960 (Age: 51) ??F ?Collect Date: ? 12/13/2011 ? Location: ? [facility] ? Receive Date: ? 12/14/2011 ? Provider: SHIRLEY YU MD Copy to: ? Final Report SPECIMEN ADEQUACY ? Satisfactory for Evaluation - assessment of transformation zone component not applicable ( e.g. atrophy, vaginal sample, hysterectomy) GENERAL CATEGORIZATION ? Negative for Intraepithelial Lesion or Malignancy ?? Treatment History: Miscellaneous treatment: S/P TVH Specimen/Source: ??Pap Test, Vagina, ThinPrep Imaging System with manual evaluation Document reviewed and electronically signed by: ? Jennifer Martinez, CT(ASCP) ? Report ??Date: 12/20/2011 12:22 HPV with Pap Test ? Date Ordered: ? 12/20/2011 ? Status: ?? Signed Out ?Date Complete: ? 12/22/2011 ? By: ??System Interface ? Date Reported: ? 12/22/2011 ? Interpretation RESULT: Negative for HPV. No E6 or E7 mRNA is detected from HPV types 16,18,31,33,35, 39,45,51,52,56,58, 59,66, and 68 by electronics lead mediated amplification. Comments Document reviewed and electronically signed by: ? System Interface ? Report date: 12/22/2011 By the signature above, the attending physician certifies that he/she has personally conducted a gross and/or microscopic examination of the described specimens and rendered or confirmed the above diagnosis. End of Report [facility] 12/13/2011 12/14/2011 Shirley Yu MD PATHOLOGY ORDERABLES Performing Organization Address City/State/[facility] Co de Phone Number [facility] [address] [place] [address] documented in this encounter Visit Diagnoses Not on filedocumented in this encounter
--- OUTSIDE RECORDS SUMMARY | 2023-12-13 18:34 | XMS_ITS | Encounter Summary ---
Author Organization [facility] Address [address] [place] [address] Care Team Providers Care Scouts Name Role Phone Unavailable Primary Care Provider Unavailabl e Encounter Details Date Type Department Care Team (Late st Contact Info) Description 07/21/2003 Results Only [facility] - Maple conversion [address] [place] [address] Arturo Vidal MD [address] [facility] [address] [place] [phone] Social History Tobacco Use Types Packs/Day [...] Priority Date/Time Associated Diagnosis Comments CYTOPATHOLOGY Routine 07/21/2003 0:00 EDT documented in this encounter Results * CYTOPATHOLOGY (07/21/2003 0:00 EDT) Pathology Report: CYTOPATHOLOGY REPORT Reports generated via electronic interface contain original data; however they are lacking the format of the original report. Caution should be taken when reading/interpreti ng unformatted reports. Name: ? JENNIFER WINTERS ? Accession #: ? [id number] : ? 1960 (Age: 42) ??F ?Collect Date: ? 07/21/2003 Location: ? [facility] ? Receive Date: ? 07/23/2003 Provider: ?ARTURO VIDAL MD Copy to: ? Specimen/Source: ?ThinPrep Pap Test, Vagina Last Menstrual Period: ? Previous Gynecologic Pathology: ? CARLI Treatment History: ? Hysterectomy: & vulvectomy Other: ? Additional clinical information: lugos-neg, tolurdine-neg ? SPECIMEN ADEQUACY ? Satisfactory for Evaluation - assessment of transformation zone component not applicable ( e.g. atrophy, vaginal sample, hysterectomy) GENERAL CATEGORIZATION ? Negative for Intraepithelial Lesion or Malignancy ? Document reviewed and electronically signed by: ? FADI Barillas(ASCP) ? Report Date: ??07/25/2003 11:16 End of Report [facility] 07/21/2003 07/23/2003 Arturo Vidal MD PATHOLOGY ORDERABLES [facility] [address] [place] [address] documented in this encounter Visit Diagnoses Not on filedocumented in this encounter
--- OUTSIDE RECORDS SUMMARY | 2023-12-13 18:34 | XMS_ITS | Encounter Summary ---
Author Organization [facility] Address [address] [place] [address] Care Team Providers Care Senior Human Resources Representative Name Role Phone Unavailable Primary Care Provider Unavailabl e Encounter Details Date Type Department Care Team (Late st Contact Info) Description 08/29/2007 13:19 EDT Hospital Encounter [facility] [address] [place] [address] Randa Davis MD [address] [place] [address], [address] [place] [phone] Social History Tobacco Use Types Packs/Day Years [...]
--- OUTSIDE RECORDS SUMMARY | 2023-12-13 18:34 | XMS_ITS | Encounter Summary ---
Author Organization [facility] Address [address] [place] [address] Care Team Providers Care Fire Suppression Captain Name Role Phone Unavailable Primary Care Provider Unavailabl e Encounter Details Date Type Department Care Team (Late st Contact Info) Description 12/24/2004 Results Only [facility] - Maple conversion [address] [place] [address] Arturo Vidal MD [address] [facility] [address] [place] [phone] Social History Tobacco Use Types Packs/Day [...] Priority Date/Time Associated Diagnosis Comments CYTOPATHOLOGY Routine 12/24/2004 0:00 EDT documented in this encounter Results * CYTOPATHOLOGY (12/24/2004 0:00 EDT) Pathology Report: CYTOPATHOLOGY REPORT Reports generated via electronic interface contain original data; however they are lacking the format of the original report. Caution should be taken when reading/interpreti ng unformatted reports. Name: ? JENNIFER WINTERS ? Accession #: ? [id number] : ? 1960 (Age: 44) ??F ?Collect Date: ? 12/24/2004 Location: ? [facility] ? Receive Date: ? 12/27/2004 Provider: ?ARTURO VIDAL MD Copy to: ? Specimen/Source: ?ThinPrep Pap Test, Vagina, processed on [place] ThinPrep Imaging System, with manual evaluation Last Menstrual Period: ? Previous Gynecologic Pathology: ? CARLI: III, 10/09 Treatment History: ? Hysterectomy ? SPECIMEN ADEQUACY ? Satisfactory for Evaluation - assessment of transformation zone component not applicable ( e.g. atrophy, vaginal sample, hysterectomy) GENERAL CATEGORIZATION ? Negative for Intraepithelial Lesion or Malignancy ? Document reviewed and electronically signed by: ? FADI Blankenship(ASCP) ? Report Date: ??01/03/2005 09:17 End of Report [facility] 12/24/2004 12/27/2004 Arturo Vidal MD PATHOLOGY ORDERABLES [facility] [address] [place] [address] documented in this encounter Visit Diagnoses Not on filedocumented in this encounter
--- OUTSIDE RECORDS SUMMARY | 2023-12-13 18:34 | XMS_ITS | Encounter Summary ---
Author Organization [facility] Address [address] [place] [address] Care Team Providers Care Chemical Recovery Operator Name Role Phone Unavailable Primary Care Provider Unavailabl e Encounter Details Date Type Department Care Team (Late st Contact Info) Description 07/15/2002 Results Only [facility] - Maple conversion [address] [place] [address] Arturo Vidal MD [address] [facility] [address] [place] [phone] Social History Tobacco Use Types Packs/Day [...] Priority Date/Time Associated Diagnosis Comments CYTOPATHOLOGY Routine 07/15/2002 0:00 EDT documented in this encounter Results * CYTOPATHOLOGY (07/15/2002 0:00 EDT) Pathology Report: CYTOPATHOLOGY REPORT Reports generated via electronic interface contain original data; however they are lacking the format of the original report. Caution should be taken when reading/interpreti ng unformatted reports. Name: ? JENNIFER WINTERS ? Accession #: ? [id number] : ? 1960 (Age: 41) ??F ?Collect Date: ? 07/15/2002 Location: ? [facility] ? Receive Date: ? 07/16/2002 Provider: ?ARTURO VIDAL MD Copy to: ? Specimen/Source: ?ThinPrep Pap Test, Vagina Last Menstrual Period: ? Previous Gynecologic Pathology: ? VAIN: 10/09 Treatment History: ? Hysterectomy: Ovarian mass 06/09 ? SPECIMEN ADEQUACY ? Satisfactory for Evaluation - assessment of transformation zone component not applicable ( e.g. atrophy, vaginal sample, hysterectomy) GENERAL CATEGORIZATION ? Negative for Intraepithelial Lesion or Malignancy ? Document reviewed and electronically signed by: ? MARISOL Smith(ASCP) ? Report Date: ??07/19/2002 09:36 End of Report [facility] 07/15/2002 07/16/2002 Arturo Vidal MD PATHOLOGY ORDERABLES [facility] [address] [place] [address] documented in this encounter Visit Diagnoses Not on filedocumented in this encounter
--- OUTSIDE RECORDS SUMMARY | 2023-12-13 18:34 | XMS_ITS | Encounter Summary ---
Author Organization [facility] Address [address] [place] [address] Care Team Providers Care Elementary School Teacher'S Aide Name Role Phone Unavailable Primary Care Provider Unavailabl e Encounter Details Date Type Department Care Team (Late st Contact Info) Description 01/13/2003 Results Only [facility] - Maple conversion [address] [place] [address] Arturo Vidal MD [address] [facility] [address] [place] [phone] Social History Tobacco Use Types Packs/Day [...] Priority Date/Time Associated Diagnosis Comments CYTOPATHOLOGY Routine 01/13/2003 0:00 EDT documented in this encounter Results * CYTOPATHOLOGY (01/13/2003 0:00 EDT) Pathology Report: CYTOPATHOLOGY REPORT Reports generated via electronic interface contain original data; however they are lacking the format of the original report. Caution should be taken when reading/interpreti ng unformatted reports. Name: ? JENNIFER WINTERS ? Accession #: ? [id number] : ? 1960 (Age: 42) ??F ?Collect Date: ? 01/13/2003 Location: ? [facility] ? Receive Date: ? 01/14/2003 Provider: ?ARTURO VIDAL MD Copy to: ? Specimen/Source: ?ThinPrep Pap Test, Vagina Last Menstrual Period: ? 2001 Previous Gynecologic Pathology: ? CARLI: 3 excised Treatment History: ? Hysterectomy: for pelvic mass Miscellaneous treatment: CARLI 3 excised ? SPECIMEN ADEQUACY ? Satisfactory for Evaluation - assessment of transformation zone component not applicable ( e.g. atrophy, vaginal sample, hysterectomy) GENERAL CATEGORIZATION ? Negative for Intraepithelial Lesion or Malignancy ? Document reviewed and electronically signed by: ? FADI Blankenship(ASCP) ? Report Date: ??01/20/2003 10:35 End of Report [facility] 01/13/2003 01/14/2003 Arturo Vidal MD PATHOLOGY ORDERABLES [facility] [address] [place] [address] documented in this encounter Visit Diagnoses Not on filedocumented in this encounter
[2023-12-13 20:18] LABS: Iron 107 ug/dL (50-170)
[2023-12-13 20:30] LABS: TSH (W/Ref FT4) 0.08 uIU/mL (0.36-3.74)
[2023-12-13 20:48] LABS: FREE T4 1.74 ng/dL (0.76-1.46)
== END 2023-12-13 18:11 | disposition home or self-care (01) ==
LOC: LBN 18:10
PROVIDERS: PCP Family Medicine; Visit Provider Nurse Practitioner Family
DX: D64.9 Anemia, unspecified (principal); E03.9 Hypothyroidism, unspecified; N30.10 Interstitial cystitis (chronic) without hematuria
CPT/HCPCS: 87077; 83540; 84439; 84443; 87086; 87186

== ENCOUNTER 2024-02-22 22:52 | Outpatient (REF) | payer OTHER, MEDICAID, SELFPAY ==
[2024-02-22 19:35] LABS: ALT 20 U/L (14-59); AST 25 U/L (15-37); Albumin 3.7 g/dL (3.4-5.0); Alkaline Phosphatase 113 U/L (46-116); Anion Gap 7.5 mmol/L (3-11); BUN 18 mg/dL (7-18); Bilirubin, Total 0.96 mg/dL (0.2-1.0); CO2 29.5 mmol/L (21.0-32.0); Calcium 8.7 mg/dL (8.5-10.1); Chloride 93 mmol/L (98-107); Estimated GFR 27.21 (mL/min/1.73m2); Glucose 258 mg/dL (74-106); Potassium 4.8 mmol/L (3.5-5.1); Sodium 130 mmol/L (136-145); TSH (W/Ref FT4) 0.44 uIU/mL (0.36-3.74); Total Protein 6.7 g/dL (6.4-8.2)
[2024-02-22 19:51] LABS: Creatine Kinase 102 U/L (26-192)
== END 2024-02-22 22:53 | disposition home or self-care (01) ==
LOC: NCHCN 22:52
PROVIDERS: PCP Family Medicine; Visit Provider Family Medicine
DX: E10.319 Type 1 diabetes mellitus with unspecified diabetic retinopathy without macular edema (principal)
CPT/HCPCS: 80053; 82550; 84443

== ENCOUNTER 2024-02-28 01:47 | Outpatient (CLI) | payer MEDICARE, OTHER, MEDICAID, SELFPAY ==
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
== END 2024-02-28 02:07 ==
PROVIDERS: PCP Family Medicine; Visit Provider Family Medicine
DX: M79.604 Pain in right leg (principal); R22.41 Localized swelling, mass and lump, right lower limb
CPT/HCPCS: 93971

== ENCOUNTER 2024-03-22 21:11 | Outpatient (REF) | payer OTHER, MEDICAID, SELFPAY ==
[2024-03-22 20:18] LABS: Anion Gap 6.7 mmol/L (3-11); BUN 19 mg/dL (7-18); CO2 28.3 mmol/L (21.0-32.0); CREATININE 1.8 mg/dL (0.55-1.02); Chloride 93 mmol/L (98-107); Estimated GFR 30.88 (mL/min/1.73m2); Glucose 118 mg/dL (74-106); Potassium 4.8 mmol/L (3.5-5.1); Sodium 128 mmol/L (136-145)
== END 2024-03-22 21:12 | disposition home or self-care (01) ==
LOC: NCHCN 21:11
PROVIDERS: PCP Family Medicine; Visit Provider Family Medicine
DX: N18.9 Chronic kidney disease, unspecified (principal)
CPT/HCPCS: 80048

== ENCOUNTER 2024-04-11 16:40 | Outpatient (REF) | payer MEDICARE, OTHER, MEDICAID, SELFPAY ==
--- NOTE | 2024-04-11 11:15 | SKI_PTH ---
PATIENT: Jennifer Snyder LOC: NCN #:[id number] AGE/SX: 63/F ROOM: RE04/11/[address]: Shirley Yu V : 1960 BED: DIS: 04/11/2024 SPEC #: [id number] RECD: 04/12/24 12:44 STATUS: ELIECER QUINONES #: [id number] JOSE: 04/11/24 11:[address]: Shirley Yu V DEPT: Surgical Specimen RECD BY: Hailey Nolan Tissues: 1 - SKIN BIOPSY(SHAVE/PUNCH) Procedures: SKIN LEVEL 4 Comments: [id number]
== END 2024-04-11 16:41 | disposition home or self-care (01) ==
LOC: NCHCN 16:40
PROVIDERS: PCP Family Medicine; Visit Provider Family Medicine
DX: L82.0 Inflamed seborrheic keratosis (principal)
CPT/HCPCS: 88305

== ENCOUNTER 2024-04-17 15:27 | Emergency (ER) | payer OTHER, MEDICARE, MEDICAID, SELFPAY ==
[2024-04-17] VITALS (28 sets, daily range): BP systolic 138–197; BP diastolic 33–90; PULSE 48–74; RESP 12–20; O2SAT 80–99
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
[2024-04-17] MEDS: Dextrose 50%-Water 25 GM/50 ML SYR IVP (16:08)
[2024-04-17 16:09] LABS: Abs Immature Grans 0.01 10^3/uL (0.0-0.06); Absolute Basophil Count 0.06 10^3/uL (0.0-0.2); Absolute Eosinophil Count 0.41 10^3/uL (0.0-0.7); Absolute Lymphocyte Count 0.97 10^3/uL (1.2-3.4); Absolute Monocyte Count 0.55 10^3/uL (0.1-0.8); Absolute Neutrophil Count 2.96 10^3/uL (1.2-6.7); Basophils % 1.2 %; Eosinophils % 8.3 %; HCT 35.4 % (36.0-46.0); HGB 12.5 g/dL (11.2-15.7); Immature Grans % 0.2 %; Lymphocytes % 19.6 %; MCH 32.5 pg (27.0-33.0); MCHC 35.3 % (32.0-36.0); MCV 92 fL (80-95); MPV 9.3 fL (8.0-11.0); Monocytes % 11.1 %; Neutrophils % 59.6 %; Platelet Count 207 10^3/uL (130-400); RBC 3.85 10^6/uL (3.93-5.22); RDW 12.7 % (11.7-14.6); WBC 4.96 10^3/uL (4.4-10.8)
[2024-04-17 16:21] LABS: Anion Gap 5.4 mmol/L (3-11); BUN 23 mg/dL (7-18); CO2 29.6 mmol/L (21.0-32.0); Calcium 8.8 mg/dL (8.5-10.1); Chloride 92 mmol/L (98-107); Estimated GFR 27.21 (mL/min/1.73m2); Glucose 72 mg/dL (74-106); Sodium 127 mmol/L (136-145)
[2024-04-17 16:21] LABS: Bilirubin Negative (Negative); Blood Trace-intact (Negative); Clarity Clear (Clear); Glucose 500 mg/dL (Negative); Ketones Negative (Negative); Leukocyte Esterase Negative (Negative); Nitrite Negative (Negative); Urobilinogen 0.2 mg/dL (Up to 0.2)
[2024-04-17] MEDS: Normal Saline - Diluent 50 ML VIAL IJ (16:22)
[2024-04-17] MEDS: Omnipaque 350 MG/ML 100 ML BTL IJ (16:23)
[2024-04-17 16:28] LABS: Bacteria Negative HPF (Negative); C & S Indicated? No; Casts Negative LPF (Negative); Crystals Negative HPF (Negative); Epithelial Cells Negative HPF (Negative); Mucus Negative (Negative); RBC 0-2 HPF (0-2); WBC Negative HPF (0-5)
[2024-04-17 16:50] LABS: Lipase 17 U/L (<78); Magnesium 3.1 mg/dL (1.8-2.4); Troponin I 11 ng/L (<or=51)
[2024-04-17 16:56] LABS: NT-proBNP 3407 pg/mL (<300); TSH (W/Ref FT4) 0.74 uIU/mL (0.36-3.74)
[2024-04-17 18:19] LABS: BE (Venous) 1 mmol/L (-2-3); HCO3 (Venous) 26 mmol/L (23-28); O2 Sat (Venous) 87 %; TCO2 (Venous) 24 mmol/L (24-29); pCO2 (Venous) 45 mmHg (41-51); pH (Venous) 7.37 (7.31-7.41); pO2 (Venous) 53 mmHg
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
[2024-04-17 18:40] LABS: Troponin I 12 ng/L (<or=51)
[2024-04-17] MEDS: MORPHine 4 MG/ML SYR IVP (18:42)
--- NOTE | 2024-04-18 08:42 | NUR.NOTE ---
Access chart to reconcile EKG orders with EKG's in [facility]. Duplicate order cancelled. Nursing Note:
== END 2024-04-17 19:03 | disposition short-term general hospital (02) ==
PROVIDERS: Emergency Provider Student in an Organized Health Care Education/Training Program; PCP Family Medicine
DX: S12.190A Other displaced fracture of second cervical vertebra, initial encounter for closed fracture (principal); J96.01 Acute respiratory failure with hypoxia; E10.649 Type 1 diabetes mellitus with hypoglycemia without coma; J84.9 Interstitial pulmonary disease, unspecified; E10.22 Type 1 diabetes mellitus with diabetic chronic kidney disease; I12.9 Hypertensive chronic kidney disease with stage 1 through stage 4 chronic kidney disease, or unspecified chronic kidney disease; N18.4 Chronic kidney disease, stage 4 (severe); I25.10 Atherosclerotic heart disease of native coronary artery without angina pectoris; Z79.01 Long term (current) use of anticoagulants; Z79.4 Long term (current) use of insulin; Z79.84 Long term (current) use of oral hypoglycemic drugs; Z96.41 Presence of insulin pump (external) (internal); Z79.82 Long term (current) use of aspirin; V47.5XXA Car driver injured in collision with fixed or stationary object in traffic accident, initial encounter
CPT/HCPCS: 71275; 74177; 82805; 82947; 82962; 83690; 84520; 93005; 99285; 70450; 71045; 72125; 81003; 81015; 82310; 82374; 82435; 82565; 83735; 83880; 84132; 84295; 84443; 84484; 85025; 93010; J2270; J3490

== ENCOUNTER 2024-05-03 12:59 | Outpatient (REF) | payer MEDICARE, MEDICAID, SELFPAY ==
[2024-05-03 15:55] LABS: BUN 42 mg/dL (7-18); CREATININE 2.2 mg/dL (0.55-1.02); Calcium 8.7 mg/dL (8.5-10.1); Chloride 89 mmol/L (98-107); Estimated GFR 24.27 (mL/min/1.73m2); Glucose 167 mg/dL (74-106); Potassium 4.5 mmol/L (3.5-5.1)
[2024-05-03 17:13] LABS: Sodium 124 mmol/L (136-145)
== END 2024-05-03 13:00 | disposition home or self-care (01) ==
LOC: NCHCN 12:59
PROVIDERS: PCP Family Medicine; Visit Provider Family Medicine
DX: N18.9 Chronic kidney disease, unspecified (principal)
CPT/HCPCS: 80048

== ENCOUNTER 2024-05-07 14:03 | Outpatient (CLI) | payer MEDICARE, MEDICAID, SELFPAY ==
[2024-05-07 17:26] LABS: ALT 24 U/L (14-59); AST 25 U/L (15-37); Albumin 3.4 g/dL (3.4-5.0); Alkaline Phosphatase 94 U/L (46-116); Anion Gap -0.7 mmol/L (3-11); BUN 28 mg/dL (7-18); CO2 35.7 mmol/L (21.0-32.0); Calcium 8.4 mg/dL (8.5-10.1); Chloride 88 mmol/L (98-107); Estimated GFR 27.21 (mL/min/1.73m2); Potassium 3.9 mmol/L (3.5-5.1); TSH (W/Ref FT4) 1.17 uIU/mL (0.36-3.74); Total Protein 6.4 g/dL (6.4-8.2)
[2024-05-07 17:39] LABS: Glucose 45 mg/dL (74-106); Sodium 123 mmol/L (136-145)
== END 2024-05-07 14:04 | disposition home or self-care (01) ==
LOC: LBO 14:05
PROVIDERS: PCP Family Medicine; Visit Provider Family Medicine
DX: E87.1 Hypo-osmolality and hyponatremia (principal)
CPT/HCPCS: 36415; 80053; 84443

== ENCOUNTER 2024-05-14 16:59 | Outpatient (CLI) | payer MEDICARE, MEDICAID, SELFPAY ==
[2024-05-14 16:14] LABS: Anion Gap 3.1 mmol/L (3-11); BUN 27 mg/dL (7-18); CO2 33.9 mmol/L (21.0-32.0); Calcium 8.9 mg/dL (8.5-10.1); Chloride 88 mmol/L (98-107); Estimated GFR 27.21 (mL/min/1.73m2); Glucose 251 mg/dL (74-106); Potassium 4.1 mmol/L (3.5-5.1)
[2024-05-14 16:22] LABS: Sodium 125 mmol/L (136-145)
== END 2024-05-14 17:00 | disposition home or self-care (01) ==
LOC: LBO 17:00
PROVIDERS: PCP Family Medicine; Visit Provider Family Medicine
DX: E87.1 Hypo-osmolality and hyponatremia (principal)
CPT/HCPCS: 36415; 80048

== ENCOUNTER 2024-05-21 11:58 | Inpatient (IN) | payer OTHER, MEDICAID, SELFPAY ==
[2024-05-21] VITALS (60 sets, daily range): BP systolic 149–207; BP diastolic 48–79; PULSE 49–76; RESP 8–23; TEMP 36.4–37.2; O2SAT 74–96
--- NOTE | 2024-05-21 12:15 | DI.RAD_ITS ---
Exam(s) XR CHEST 2V PA LATERAL EXAM: XR CHEST 2V PA LATERAL CLINICAL HISTORY: ?pneumonia. TECHNIQUE: 2D digital imaging was performed. COMPARISON: CT CT CHEST PE ABD PELVIS W from 04/17/2024 CR XR PORTABLE CHEST AP from 04/17/2024 FINDINGS: 2 views: Mild cardiomegaly. Mediastinum is not widened. There is extensive bilateral interstitial disease. There is also small right pleural effusion. Healed right 7th rib fracture again noted. IMPRESSION: Extensive bilateral interstitial disease and small right pleural effusion. Cardiomegaly.Although the re is significant consideration for interstitial pulmonary edema, there is also a consideration for u nderlying chronic interstitial disease here. Also interstitial infectious infiltrate. Discussed with ER physician 05/21/2024 1:55 p.m. DATA REPOSITORY: RADIATION DOSE DELIVERED:
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
--- NOTE | 2024-05-21 12:15 | RT.EKG_ITS ---
APPROVED REPORT Exam: Resting ECG Reason for Exam: hypoxia, dyspnea Patient Location: E HR:65 bpm ECG Measurements Heart Rate 65 AXIS CA 206 P 69 QRSd 107 QRS -3 QT 443 T 48 QTc 460 Conclusion Sinus rhythm...normal P axis, V-rate 60- 99 Incomplete left bundle branch block...QRSd>110mS, terminal axis(-90,-1)
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
[2024-05-21] MEDS: Albuterol/Ipratropium 3 ML UPD VIAL UPD ×3 (12:45→23:12)
[2024-05-21 12:56] LABS: BE (Venous) 9 mmol/L (-2-3); HCO3 (Venous) 33 mmol/L (23-28); O2 Sat (Venous) 80 %; TCO2 (Venous) 31 mmol/L (24-29); pCO2 (Venous) 50 mmHg (41-51); pH (Venous) 7.44 (7.31-7.41); pO2 (Venous) 43 mmHg
[2024-05-21 12:58] LABS: Absolute Basophil Count 0.02 10^3/uL (0.0-0.2); Absolute Eosinophil Count 0.11 10^3/uL (0.0-0.7); Absolute Monocyte Count 0.41 10^3/uL (0.1-0.8); Absolute Neutrophil Count 2.67 10^3/uL (1.2-6.7); Basophils % 0.5 %; Eosinophils % 2.9 %; HCT 31.1 % (36.0-46.0); HGB 10.8 g/dL (11.2-15.7); Lymphocytes % 15.7 %; MCH 32.2 pg (27.0-33.0); MCHC 34.7 % (32.0-36.0); MCV 93 fL (80-95); MPV 9.2 fL (8.0-11.0); Monocytes % 10.8 %; Neutrophils % 70.1 %; Platelet Count 162 10^3/uL (130-400); RBC 3.35 10^6/uL (3.93-5.22); RDW 12.7 % (11.7-14.6); RDW-SD 42.9 fL; WBC 3.81 10^3/uL (4.4-10.8)
[2024-05-21 13:11] LABS: INR 1.1 (0.9-1.1); PTT Activated 26.3 sec (20.6-30.2); Prothrombin Time 10.7 sec (9.1-11.1)
[2024-05-21] MEDS: methylPREDNISolone SUCC 125 MG VIAL IVP (13:16)
[2024-05-21 13:27] LABS: ALT 36 U/L (14-59); AST 34 U/L (15-37); Albumin 3.4 g/dL (3.4-5.0); Alkaline Phosphatase 127 U/L (46-116); Anion Gap 0.6 mmol/L (3-11); BUN 33 mg/dL (7-18); Bilirubin, Total 1.03 mg/dL (0.2-1.0); CO2 33.4 mmol/L (21.0-32.0); CREATININE 1.9 mg/dL (0.55-1.02); Calcium 8.8 mg/dL (8.5-10.1); Chloride 89 mmol/L (98-107); Estimated GFR 28.94 (mL/min/1.73m2); Glucose 273 mg/dL (74-106); Magnesium 2.6 mg/dL (1.8-2.4); NT-proBNP 6475 pg/mL (<300); Potassium 4.7 mmol/L (3.5-5.1); TSH (W/Ref FT4) 1.64 uIU/mL (0.36-3.74); Total Protein 6.5 g/dL (6.4-8.2); Troponin I 10 ng/L (<or=51)
[2024-05-21 13:30] LABS: Sodium 123 mmol/L (136-145)
[2024-05-21 13:32] LABS: Procalcitonin < 0.10 ng/mL
[2024-05-21 13:34] LABS: COVID-19 PCR Negative (Negative); Influenza A PCR Negative (Negative); Influenza B PCR Negative (Negative); RSV PCR Negative (Negative)
[2024-05-21 13:40] LABS: Source Nasopharynx
[2024-05-21] MEDS: Furosemide 20 MG/2 ML VIAL IVP (14:12)
[2024-05-21] MEDS: CEFEPIME 2 GM in Normal Saline 100 ML IVPB (14:13)
[2024-05-21 15:12] LABS: Troponin I 11 ng/L (<or=51)
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
--- NOTE | 2024-05-21 17:37 | RESPIRATORY ---
Pt has home [employer] CPAP 12-16, No O2 Bleed-in, DME: [employer]
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
[2024-05-21] MEDS: methylPREDNISolone SUCC 125 MG VIAL 60 MG IVP (20:41)
[2024-05-21] MEDS: Normal Saline Flush 10 ML SYR IVP (20:41)
[2024-05-21] MEDS: Sacubitril/Valsartan 24 mg/26 mg TAB 1 EACH PO (20:42)
[2024-05-21] MEDS: Pantoprazole 40 MG TABCR PO (20:42)
[2024-05-21] MEDS: Apixaban 5 MG TAB PO (20:42)
[2024-05-21] MEDS: Carvedilol 12.5 MG TAB PO (20:42)
[2024-05-21] MEDS: Citalopram 20 MG TAB 40 MG PO (20:43)
[2024-05-21] MEDS: Acetaminophen 500 MG TAB 1000 MG PO (20:58)
[2024-05-21] MEDS: Patient's Own Medication 1 EACH MISC SC (23:30)
[2024-05-22] VITALS (8 sets, daily range): BP systolic 141–156; BP diastolic 54–62; PULSE 64–77; RESP 8–20; TEMP 36.8–37.2; O2SAT 91–98
[2024-05-22] MEDS: CEFEPIME 2 GM in Normal Saline 100 ML IVPB ×2 (02:29→14:02)
[2024-05-22] MEDS: methylPREDNISolone SUCC 125 MG VIAL 60 MG IVP ×2 (03:04→13:32)
[2024-05-22] MEDS: Albuterol/Ipratropium 3 ML UPD VIAL UPD ×3 (05:18→17:52)
[2024-05-22 06:41] LABS: Abs Immature Grans 0.02 10^3/uL (0.0-0.06); Absolute Basophil Count 0.01 10^3/uL (0.0-0.2); Absolute Eosinophil Count 0.03 10^3/uL (0.0-0.7); Absolute Monocyte Count 0.05 10^3/uL (0.1-0.8); Absolute Neutrophil Count 4.29 10^3/uL (1.2-6.7); Basophils % 0.2 %; Eosinophils % 0.7 %; HGB 11.1 g/dL (11.2-15.7); Immature Grans % 0.4 %; Lymphocytes % 4.3 %; MCH 32.4 pg (27.0-33.0); MCHC 35.8 % (32.0-36.0); MCV 90 fL (80-95); MPV 9.3 fL (8.0-11.0); Monocytes % 1.1 %; Neutrophils % 93.3 %; Platelet Count 152 10^3/uL (130-400); RBC 3.43 10^6/uL (3.93-5.22); RDW 12.9 % (11.7-14.6); RDW-SD 42.5 fL
[2024-05-22] MEDS: Levothyroxine 175 MCG TAB PO (06:48)
[2024-05-22 06:54] LABS: Anion Gap 4.3 mmol/L (3-11); BUN 34 mg/dL (7-18); CO2 31.7 mmol/L (21.0-32.0); CREATININE 1.9 mg/dL (0.55-1.02); Calcium 9.2 mg/dL (8.5-10.1); Chloride 93 mmol/L (98-107); Estimated GFR 28.94 (mL/min/1.73m2); Glucose 280 mg/dL (74-106); Magnesium 2.4 mg/dL (1.8-2.4); Potassium 4.2 mmol/L (3.5-5.1); Sodium 129 mmol/L (136-145)
--- NOTE | 2024-05-22 08:00 | DI.US_ITS ---
Exam(s) US UPPER EXTREMITY VENOUS LT EXAM: US UPPER EXTREMITY VENOUS LT CLINICAL HISTORY: Lt upper arm pain swelling, no trauma TECHNIQUE: GRAYSCALE, COLOR, DOPPLER IMAGING OF THE VENOUS SYSTEM OF THE UPPER EXTREMITY-LEFT COMPARISON: None FINDINGS: Basilic vein: Patent. Normal color-flow and normal compression and augmentation properties. Brachial vein(s):Patent. Normal color flow. Normal compression and augmentation properties. Cephalic vein:Patent. Normal color flow. Normal compression and augmentation properties. Axillary vein: Patent. Normal color flow. Normal compression and augmentation properties. Visualized subclavian vein: Patent. No obvious intraluminal thrombus. IMPRESSION: 1. No evidence of venous thrombosis in the left upper extremity. 2. DATA REPOSITORY:
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
[2024-05-22] MEDS: Cholecalciferol (Vitamin D3) 1,000 UNIT TAB 1000 UNITS PO (10:25)
[2024-05-22] MEDS: Apixaban 5 MG TAB PO (10:26)
[2024-05-22] MEDS: Carvedilol 12.5 MG TAB PO (10:26)
[2024-05-22] MEDS: Magnesium Oxide 400 MG TAB PO (10:27)
[2024-05-22] MEDS: Aspirin E.C. 81 MG TABEC PO (10:27)
[2024-05-22] MEDS: Clopidogrel 75 MG TAB PO (10:27)
[2024-05-22] MEDS: Ferrous Gluconate 324 MG TAB PO (10:30)
[2024-05-22] MEDS: Empaglifozin 10 MG TAB PO (10:31)
[2024-05-22] MEDS: amLODIPine 5 MG TAB PO (10:32)
[2024-05-22] MEDS: Pantoprazole 40 MG TABCR PO (10:34)
[2024-05-22] MEDS: Sacubitril/Valsartan 24 mg/26 mg TAB 1 EACH PO (10:34)
[2024-05-22] MEDS: Rosuvastatin 10 MG TAB PO (10:35)
[2024-05-22] MEDS: Furosemide 20 MG TAB PO (10:35)
[2024-05-22] MEDS: Normal Saline Flush 10 ML SYR IVP ×2 (11:05→13:34)
[2024-05-22] MEDS: Sodium Chloride-Nasal SPRAY-ADULT 44 ML BTL NS ×2 (12:23→16:20)
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
--- NOTE | 2024-05-22 14:52 | CHAPLAIN ---
Jennifer was standing up in her room when I visited. She had two visitors with her. I explained my role and offered support Jennifer thanked me for visiting and said she's fine.
--- NOTE | 2024-05-22 20:48 | DSE_ITS ---
Date of service: 05/22/24 Time of Service: 18:30 DS: Diagnosis Discharge Diagnosis (1) HCAP (healthcare-associated pneumonia): Status: Acute (2) Hyponatremia: Status: Acute (3) Pulmonary edema: Status: Acute (4) Acute hypoxic respiratory failure: Status: Acute (5) Diabetes mellitus type 1: (6) Hypothyroidism: (7) Benign hypertension: (8) Hyperlipidemia: Discharge Plan Disposition Patient Disposition: Home Condition: Good Discharge Details Reason For Visit: Acute hypoxic respiratory failure; acute on chroni Admit Date/Time: 05/21/24 14:54 Admit Provider: Luisito Jovel Attending Provider: Erik Gallo Primary Care Provider: Shirley Yu V Hospital Course Hospital Course: The patient is a 63-year-old female with a complex past medical history who was admitted for worsening respiratory symptoms, including increased cough, dyspnea, and hypoxia. She also experienced a fall at home but denied any clear loss of consciousness. In the emergency department, she was found to be hypoxic (SpO2 in the low 80s, briefly dropping to the 70s), requiring supplemental oxygen. [place] Findings: * Imaging: Chest X-ray showed extensive bilateral interstitial disease, a small right pleural effusion, cardiomegaly, interstitial pulmonary edema, and possible infectious infiltrates. * Labs: Notable for sodium 123 (consistent with baseline), Cr 1.9 (baseline), WBC 3.81, proBNP 6475, procalcitonin negative. * ABG/VBG: No significant respiratory acidosis. * EKG: Normal sinus rhythm with incomplete LBBB. She was started on methylprednisolone, nebulizers, and cefepime for presumed multifactorial hypoxia (COPD exacerbation, volume overload, and possible pneumonia). Her oxygen requirements improved with supplemental O2. Hospital Course & Treatment * Respiratory: Continued on oxygen therapy, nebulized bronchodilators, and corticosteroids with symptomatic improvement and nno oxygen requirement. * Infectious Disease: Started on empiric cefepime; procalcitonin was negative, suggesting a non-bacterial cause for her symptoms. * Cardiovascular/Renal: ProBNP elevated, suggesting possible heart failure exacerbation. Managed conservatively given CKD and stable creatinine. * Endocrinology: Diabetes managed with her insulin pump. * Neurology: C2 fracture remains stable; no new intracranial pathology noted on CT. Disposition & Follow-Up Discharge Plan: Patient is discharged to home; she no longer wants to be in the hospital and is stable without an oxygen requirement. Medications: Start cefpodoxime and take until finished. Take benzonatate as needed for cough up to three times a day. Follow-Up Appointments: * Primary care provider within 10 days * Pulmonology follow-up for continued respiratory evaluation * Endocrinology for diabetes management * Neurosurgery/orthopedics for C2 fracture follow-up Code Status: Full Code Condition at Discharge: Stable, improved from admission with no oxygen requirement. Home Meds and New Rx's Prescriptions: New cefpodoxime 200 mg tablet 200 mg PO BID Qty: 10 0RF Rx Instructions: must administer with a meal/food benzonatate 100 mg capsule 100 mg PO TID PRN (Reason: cough) Qty: 20 0RF prednisone 20 mg tablet See Taper PO DAILY Qty: 14 0RF Taper: Prednisone 20mg taper 40 mg Daily for 3 Days and 0 Hour 20 mg Daily for 4 Days and 0 Hour 10 mg Daily for 4 Days and 0 Hour Continued rosuvastatin 10 mg tablet 10 mg PO DAILY cholecalciferol (vitamin D3) [Vitamin D3] 1,000 UNIT capsule 1,000 unit PO DAILY humalog pump subcut 31/10 albuterol sulfate 90 mcg/actuation HFA aerosol inhaler 2 puff inhalation Q6H PRN citalopram 20 mg tablet 40 mg PO HS clopidogrel 75 mg tablet 75 mg PO DAILY magnesium oxide 250 mg magnesium tablet 500 mg PO DAILY ferrous gluconate 324 mg (37.5 mg iron) tablet 324 mg PO DAILY furosemide 20 mg tablet 20 mg PO DAILY aspirin 81 MG tablet,delayed release (DR/EC) 81 mg PO DAILY acetaminophen 500 mg tablet 1,000 mg PO Q8H PRN (Reason: pain) Qty: 60 3RF insulin aspart U-100 [Novolog U-100 Insulin aspart] 100 unit/mL solution Patient Comments: INJECT 1.4 UNITS CONTINUOUSLY WITH BOLUS BEFORE MEALS Jardiance 10 mg tablet 10 mg PO DAILY Patient Comments: TAKE ONE TABLET BY MOUTH EVERY DAY amlodipine 5 mg tablet 5 mg PO DAILY Patient Comments: TAKE ONE TABLET BY MOUTH EVERY DAY pantoprazole 40 mg tablet,delayed release (DR/EC) 40 mg PO BID Patient Comments: TAKE ONE TABLET BY MOUTH TWICE A DAY levothyroxine 175 mcg tablet 175 mcg PO DAILY Patient Comments: TAKE ONE TABLET BY MOUTH EVERY DAY Eliquis 5 mg tablet 5 mg PO BID sacubitril-valsartan [Entresto] 24- mg tablet 1 tab PO BID carvedilol 12.5 mg tablet 12.5 mg PO BID Discharge Instructions Instructions: Benzonatate, Guaifenesin, Community-Acquired Pneumonia, Adult (DC) Additional Instructions: Take cefpodoxime, antibiotic, until finished. Take benzonatate as needed for cough Take prednisone per bottle instructions. Follow up with your family physician. Return to the emergency department if increased shortness of breath, chest pain. Referrals: Shirley Yu MD [Primary Care Provider] - (post hospitalization visit within 10 days) Activity:: Activity as Tolerated Equipment/Supplies:: No Equipment Needed Diet:: As Tolerated Discharge Orders Discharge Orders: Discharge Order (Routine); Ordered 05/22/24 Ordered By: Johanna Jung Discharge Data Discharge Date/Time-TO BE ENTERED AT DEPARTURE: 05/22/24 20:53 DS: Summary Time Spent with Patient providing and/or coordinating discharge services: Greater than 30 minutes Status at Discharge Functional status at discharge: independent ambulation Overall status at discharge: patient is back to baseline Mental Status: mental status grossly normal Speech and Movement: speech and movement normal Mood: congruent mood Affect: normal affect Quality:SDOH Health Related Social Needs: No Data to Display Exam Const General: no acute distress Orientation: alert HENMT Head: normal to inspection Ears: external ears normal General nose exam: external nose normal Mouth: moist mucous membranes Eyes General: appearance normal, both eyes and all related structures Neck Neck: normal visual inspection Resp Effort & Inspection: normal respiratory effort and able to speak in complete sentences Auscultation: clear to auscultation bilaterally and diminished lung sounds Cardio Jugular venous pressure: no JVD Rate: regular rate Skin General skin exam: no rashes or lesions noted Neuro General: patient alert and patient oriented x3 Extrem General: normal to inspection Psych Mental Status: mental status grossly normal Speech and Movement: speech and movement normal Mood: congruent mood Affect: normal affect DS: Data Vitals/I&O Vitals and I&O: Vital Signs Temperature 37.2 C 05/22/24 15:44 Temperature Source Temporal Artery Scan 05/22/24 15:44 Pulse 77 05/22/24 17:52 Pulse Rhythm Regular 05/21/24 16:38 Pulse 67 05/21/24 16:16 Respiratory Rate 18 05/22/24 15:44 Respiratory Effort Normal 05/21/24 16:38 Respiratory Depth Normal 05/21/24 16:38 Respiratory Pattern Normal 05/21/24 16:38 Blood Pressure 154/54 H 05/22/24 15:44 Blood Pressure Mean 109 05/21/24 16:16 Pulse Oximetry 91 L 05/22/24 17:52 Oxygen Delivery Method Room Air 05/22/24 17:52 Oxygen Flow Rate 0 05/22/24 17:52 Pain Level 0 05/22/24 12:45 Intake & Output 05/21/24 05/22/24 05/22/24 23:59 11:59 23:59 Intake Total 500 / 700 200 / 700 Output Total 1200 / 1200 1000 / 2100 1100 / 2100 Balance -1200 / -1200 -500 / -1400 -900 / -1400 Weight 68.946 kg 68.6 kg Intake: IV 200 / 300 100 / 300 Oral 300 / 400 100 / 400 Output: Urine 1200 / 1200 1000 / 2100 1100 / 2100 Other: Urine Color Pale Yellow Yellow Yellow Urine Appearance Clear Clear Clear Urine Odor Normal Normal Comment Also had a large amount that was incontinent in the bed. pt reports normal voiding pattern, has voided four times since 0700 05/22 Stool Size Moderate Copious Stool Characteristics Soft Soft Brown Formed Data Completed and Pending Labs on day of discharge: Labs from last 24 hours 05/22/24 05/21/24 06:30 00:00 WBC 4.60 RBC 3.43 L Hgb 11.1 L Hct 31.0 L MCV 90 MCH 32.4 MCHC 35.8 RDW 12.9 Plt Count 152 MPV 9.3 Immature Gran % 0.4 Neutrophils % 93.3 Lymphocytes % 4.3 Monocytes % 1.1 Eosinophils % 0.7 Basophils % 0.2 Nucleated RBC % 0.0 Absolute Neutrophils 4.29 Absolute Lymphocytes 0.20 L Absolute Monocytes 0.05 L Absolute Eosinophils 0.03 Absolute Basophils 0.01 Sodium 129 L Potassium 4.2 Chloride 93 L Carbon Dioxide 31.7 Anion Gap 4.3 BUN 34 H Creatinine 1.9 H Est GFR (CKD-EPI 2020) 28.94 Glucose 280 H Calcium 9.2 Magnesium 2.4 Urine Legionella Ag Pending Ur Strep pneumoniae Ag Pending Preliminary micro results at discharge 05/21/24 14:20 Blood Culture - Preliminary Blood NO GROWTH 24 HOURS 05/21/24 14:10 Blood Culture - Preliminary Blood NO GROWTH 24 HOURS PFSH All Active Problems (Updated 05/21/24 @ 18:49 by Johanna Jung NP) Pulmonary edema (Acute) Hyponatremia (Acute) HCAP (healthcare-associated pneumonia) (Acute) Acute hypoxic respiratory failure (Acute) Closed fracture of left proximal humerus (Acute 06/18/23) Abnormal ankle brachial index (Acute) Concussion (Acute) Ganglion of left wrist (Acute) S/P Excision: 07/30/2021 Cyst (Acute) Right shoulder PAD (peripheral artery disease) (Acute) Infected sebaceous cyst of skin (Acute) Former smoker (Acute) 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) COVID-19 (Acute) 05/2021 Sebaceous cyst (Acute) Contusion of left knee (Acute) Leg wound, left (Acute) Medical History Infected animal bite of lower leg Struck by pig, initial encounter 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 Surgical History History of incision and drainage (~09/2022) left lower leg I&D after laceration S/P cardiac cath stent placed 4 month ago Hx of removal of cyst (~07/20/21) upper left chest back excision of melanoma on arm. Trigger Finger release (03/29/11) LEFT THUMB Stent placement LE for intermittent claudication Oophrectomy, Both Abdominal hysterectomy (~2001) Carotid endarterectomy bilateral. Social History Smoking/Tobacco Use Status: Current every day Tobacco Type: cigarettes Smoking risk assessment performed?: Yes Alcohol Intake: current Alcohol Intake frequency: a few times a week Alcohol type: hard liquor Drug use: Never Substance use type: does not use Housing: apartment Current gender identity: female Do you feel safe at home: Yes Do you feel safe in your relationship?: Yes Additional Social history: unable to access privately Time Spent with Patient Time Spent with Patient: 45-69 minutes Time was spent: preparing to see the patient(eg.review tests), ordering medications,tests, procedures, referring, communicating with other health health care facility administrator, indepentently interpreting results, counseling the patient and care coordination
[2024-05-22 20:49] LABS: Legionella Ag Detection Urine Negative (Negative)
[2024-05-24 21:43] LABS: Streptococcus Pneumoniae Ag, U Negative (Negative)
== END 2024-05-22 20:53 | disposition home or self-care (01) | DRG 193 ==
LOC: ER 15:45 → MS 16:26
PROVIDERS: Nurse Practitioner Family; Admitting Provider Family Medicine; Emergency Provider Emergency Medicine; PCP Family Medicine; Visit Provider Hospitalist
DX: J18.9 Pneumonia, unspecified organism (principal); J81.0 Acute pulmonary edema; J96.01 Acute respiratory failure with hypoxia; E87.1 Hypo-osmolality and hyponatremia; J44.0 Chronic obstructive pulmonary disease with (acute) lower respiratory infection; N18.4 Chronic kidney disease, stage 4 (severe); J90 Pleural effusion, not elsewhere classified; I25.10 Atherosclerotic heart disease of native coronary artery without angina pectoris; I12.9 Hypertensive chronic kidney disease with stage 1 through stage 4 chronic kidney disease, or unspecified chronic kidney disease; E78.5 Hyperlipidemia, unspecified; Z79.84 Long term (current) use of oral hypoglycemic drugs; S12.190D Other displaced fracture of second cervical vertebra, subsequent encounter for fracture with routine healing; V89.2XXD Person injured in unspecified motor-vehicle accident, traffic, subsequent encounter; Y95 Nosocomial condition; E10.22 Type 1 diabetes mellitus with diabetic chronic kidney disease; Z96.41 Presence of insulin pump (external) (internal); Z86.73 Personal history of transient ischemic attack (TIA), and cerebral infarction without residual deficits; I73.9 Peripheral vascular disease, unspecified; Z95.5 Presence of coronary angioplasty implant and graft; Z95.828 Presence of other vascular implants and grafts; F17.210 Nicotine dependence, cigarettes, uncomplicated; W06.XXXA Fall from bed, initial encounter
CPT/HCPCS: 00123; 36415; 80048; 80053; 82805; 84145; 87040; 87449; 87637; 93005; 94640; 96365; 96366; 96375; 99285; 70450; 71046; 72125; 83735; 83880; 84443; 84484; 85025; 85610; 85730; 87070; 87205; 87899; 93010; 93971; 94667; 94760; 99223; 99239; J0692; J1815; J1941; J2919; J7620

== ENCOUNTER 2024-05-31 16:23 | Outpatient (REF) | payer OTHER, MEDICAID, SELFPAY ==
[2024-05-31 19:08] LABS: Anion Gap 1.1 mmol/L (3-11); BUN 33 mg/dL (7-18); CO2 33.9 mmol/L (21.0-32.0); CREATININE 1.7 mg/dL (0.55-1.02); Calcium 8.8 mg/dL (8.5-10.1); Chloride 86 mmol/L (98-107); Estimated GFR 33.07 (mL/min/1.73m2); Glucose 210 mg/dL (74-106); Magnesium 2.3 mg/dL (1.8-2.4); Potassium 4.7 mmol/L (3.5-5.1)
[2024-05-31 19:12] LABS: Sodium 121 mmol/L (136-145)
== END 2024-05-31 16:24 | disposition home or self-care (01) ==
LOC: NCHCN 16:23
PROVIDERS: PCP Family Medicine; Visit Provider Family Medicine
DX: J81.1 Chronic pulmonary edema (principal)
CPT/HCPCS: 80048; 83735

== ENCOUNTER 2024-06-13 14:24 | Outpatient (CLI) | payer OTHER, MEDICAID, SELFPAY ==
[2024-06-13 15:55] LABS: Anion Gap 4.2 mmol/L (3-11); BUN 30 mg/dL (7-18); CO2 32.8 mmol/L (21.0-32.0); CREATININE 1.7 mg/dL (0.55-1.02); Calcium 8.6 mg/dL (8.5-10.1); Chloride 79 mmol/L (98-107); Estimated GFR 33.07 (mL/min/1.73m2); Glucose 267 mg/dL (74-106); Potassium 3.9 mmol/L (3.5-5.1)
[2024-06-13 16:03] LABS: Sodium 116 mmol/L (136-145)
== END 2024-06-13 14:25 | disposition home or self-care (01) ==
LOC: LBO 14:25
PROVIDERS: PCP Family Medicine; Visit Provider Family Medicine
DX: E87.1 Hypo-osmolality and hyponatremia (principal)
CPT/HCPCS: 36415; 80048

== ENCOUNTER 2024-06-13 18:43 | Inpatient (IN) | payer OTHER, MEDICAID, SELFPAY ==
[2024-06-13] VITALS (46 sets, daily range): BP systolic 148–252; BP diastolic 33–102; PULSE 77–173; RESP 11–23; TEMP 36.8; O2SAT 91–99
--- NOTE | 2024-06-13 18:45 | RT.EKG_ITS ---
APPROVED REPORT Exam: Resting ECG Reason for Exam: hyponatremia Patient Location: E HR:81 bpm ECG Measurements Heart Rate 81 AXIS CA 219 P 0 QRSd 105 QRS 50 QT 429 T 67 QTc 499 Conclusion Sinus rhythm...normal P axis, V-rate 60- 99 Borderline prolonged CA interval...CA >212, V-rate 50- 90 Probable left ventricular hypertrophy...(RaVL+SV3)xQRSd >300 Sinus Rhythm with left ventricular hypertrophy. No change from 05/21/24. WD
[2024-06-13 19:18] LABS: Absolute Neutrophil Count 5.25 10^3/uL (1.2-6.7); Basophils % 0.2 %; HCT 33.7 % (36.0-46.0); HGB 12.1 g/dL (11.2-15.7); Immature Grans % 0.7 %; Lymphocytes % 8.8 %; MCH 32.3 pg (27.0-33.0); MCHC 35.9 % (32.0-36.0); MCV 90 fL (80-95); MPV 8.8 fL (8.0-11.0); Monocytes % 4.9 %; Neutrophils % 85.4 %; Platelet Count 249 10^3/uL (130-400); RBC 3.75 10^6/uL (3.93-5.22); RDW 12.3 % (11.7-14.6); RDW-SD 40.4 fL; WBC 6.14 10^3/uL (4.4-10.8)
[2024-06-13 19:19] LABS: Abs Immature Grans 0.04 10^3/uL (0.0-0.06); Absolute Basophil Count 0.01 10^3/uL (0.0-0.2); Absolute Lymphocyte Count 0.54 10^3/uL (1.2-3.4)
--- NOTE | 2024-06-13 19:31 | ED.GENADUL_ITS ---
Discharge Plan Disposition Patient Disposition: Admit to [facility] Discharge Details Clinical Impression: Hyponatremia Primary Care Provider: Shirley Yu V ED Provider: Anisha Alonso Home Meds and New Rx's Prescriptions: No Action rosuvastatin 10 mg tablet 10 mg PO DAILY cholecalciferol (vitamin D3) [Vitamin D3] 1,000 UNIT capsule 1,000 unit PO DAILY humalog pump subcut / albuterol sulfate 90 mcg/actuation HFA aerosol inhaler 2 puff inhalation Q6H PRN citalopram 20 mg tablet 40 mg PO HS clopidogrel 75 mg tablet 75 mg PO DAILY magnesium oxide 250 mg magnesium tablet 500 mg PO DAILY ferrous gluconate 324 mg (37.5 mg iron) tablet 324 mg PO DAILY furosemide 20 mg tablet 20 mg PO DAILY aspirin 81 MG tablet,delayed release (DR/EC) 81 mg PO DAILY acetaminophen 500 mg tablet 1,000 mg PO Q8H PRN (Reason: pain) Qty: 60 3RF insulin aspart U-100 [Novolog U-100 Insulin aspart] 100 unit/mL solution Patient Comments: INJECT 1.4 UNITS CONTINUOUSLY WITH BOLUS BEFORE MEALS furosemide 80 mg tablet 80 mg PO DAILY Jardiance 10 mg tablet 10 mg PO DAILY Patient Comments: TAKE ONE TABLET BY MOUTH EVERY DAY amlodipine 5 mg tablet 5 mg PO DAILY Patient Comments: TAKE ONE TABLET BY MOUTH EVERY DAY pantoprazole 40 mg tablet,delayed release (DR/EC) 40 mg PO BID Patient Comments: TAKE ONE TABLET BY MOUTH TWICE A DAY levothyroxine 175 mcg tablet 175 mcg PO DAILY Patient Comments: TAKE ONE TABLET BY MOUTH EVERY DAY Eliquis 5 mg tablet 5 mg PO BID sacubitril-valsartan [Entresto] 24-26 mg tablet 1 tab PO BID carvedilol 12.5 mg tablet 12.5 mg PO BID HPI General Date/Time Provider Initiated Documentation: 06/13/24 18:50 . HPI Narrative: Jennifer is a 63 year old female who presents to the emergency department today for evaluation of weakness, headache, and dizziness with mild confusion x 1 week. She reports this is similar to when she has had low sodium in the past. Denies fever/chills, congestion, sore throat, chest pain, SOB, n/v, change in PO intake, abdominal pain, change in bowel/bladder function. She is on furosemide, increased dose from 20 mg to 40 mg daily a few weeks ago for treatment of R lower extremity edema. Past medical history is significant for T2DM, COPD, hypothyroidism on levothyroxine, HTN, HLD, CKD, RI x 2. She drinks 2 vodka drinks daily at night. Physical exam reassuring. Jennifer is alert and oriented, no acute distress. Easy work of breathing, lung sounds clear bilaterally. Normal heart sounds. Membranes. Abdomen soft, nontender patient. Mild pedal edema noted to right leg from the knee down to foot. D/dx includes but is not limited to: renal dysfunction, SIADH, hyperglycemia, adrenal insufficiency, hypovolemia I independently interpreted the following tests: CMP notable for severe hypo natremia, 117. No change in kidney function. CBC and TSH unremarkable. EKG reassuring, NSR rate 81, slightly prolonged KS interval, otherwise normal intervals. History and presentation consistent with chronic hyponatremia, unknown etiology. Discussed case with Dr Carrillo, will administer 3% saline and admit for monitoring/electrolyte correction. While in the emergency department, Jennifer re ceived 15 cc/hr 3% saline. Presented case to Dr Jovel, [facility] hospitalist; he is agreeable with plan of care for admission and electrolyte correction. Related Data Home Medications ?Medication ?Instructions ?Recorded ?Confirmed aspirin 81 mg tablet,delayed 81 mg PO DAILY 08/13/12 06/13/24 release Humalog Pump unit subcut 24/7 01/07/16 11/07/23 cholecalciferol (vitamin D3) 25 1,000 unit PO DAILY 01/07/16 06/13/24 mcg (1,000 unit) capsule (Vitamin D3) acetaminophen 500 mg tablet 1,000 mg (2 x 500 mg) PO Q8H PRN 07/20/21 06/13/24 pain #60 tabs empagliflozin 10 mg tablet 10 mg PO DAILY 07/28/22 06/13/24 (Jardiance) rosuvastatin 10 mg tablet 10 mg PO DAILY 08/17/22 06/13/24 insulin aspart U-100 100 unit/mL 09/23/22 11/07/23 subcutaneous solution (Novolog U-100 Insulin aspart) amlodipine 5 mg tablet 5 mg PO DAILY 06/18/23 06/13/24 pantoprazole 40 mg tablet,delayed 40 mg PO BID 06/18/23 06/13/24 release albuterol sulfate 90 mcg/actuation 2 puff inhalation Q6H PRN 02/01/24 06/13/24 aerosol inhaler citalopram 20 mg tablet 40 mg PO HS 02/01/24 06/13/24 clopidogrel 75 mg tablet 75 mg PO DAILY 02/01/24 06/13/24 ferrous gluconate 324 mg (37.5 mg 324 mg PO DAILY 02/01/24 06/13/24 iron) tablet furosemide 20 mg tablet 20 mg PO DAILY 02/01/24 06/13/24 magnesium oxide 500 mg PO DAILY 02/01/24 06/13/24 apixaban 5 mg tablet (Eliquis) 5 mg PO BID 05/21/24 06/13/24 levothyroxine 175 mcg tablet 175 mcg PO DAILY 05/21/24 06/13/24 sacubitril 24 mg-valsartan 26 mg 1 tab PO BID 05/21/24 06/13/24 tablet (Entresto) carvedilol 12.5 mg tablet 12.5 mg PO BID 05/22/24 06/13/24 furosemide 80 mg tablet 80 mg PO DAILY 06/13/24 06/13/24 Previous Rx's ?Medication ?Instructions ?Recorded acetaminophen 500 mg tablet 1,000 mg (2 x 500 mg) PO Q8H PRN 07/20/21 pain #60 tabs Allergies Allergy/AdvReac Type Severity Reaction Status Date / Time Sulfa (Sulfonamide Allergy Severe RENAL Verified 06/13/24 18:49 Antibiotics) FAILURE sulfamethoxazole (From Allergy Severe renal Verified 06/13/24 18:49 Bactrim) failure Penicillins Allergy Unknown Other (See Verified 06/13/24 18:49 Comment) trimethoprim (From Bactrim) Allergy Other (See Verified 06/13/24 18:49 Comment) General Stated Complaint: GenMedical DAVID: 2 Review of Systems Narrative: see HPI Exam Const General: cooperative, no acute distress and well developed Nutritional Appearance: average body habitus Orientation: alert and oriented x3 Resp Effort & Inspection: normal respiratory effort and able to speak in complete sentences Auscultation: clear to auscultation bilaterally Cardio Rate: regular rate Rhythm: regular rhythm Skin General skin exam: no rashes or lesions noted Trauma: no lacerations or abrasions Neuro General: patient alert, patient oriented x3, tone normal and moves all extremities Cognition: normal cognition Speech: speech normal Motor: muscle tone normal throughout and strength 5/5 throughout Sensory Exam: no sensory deficits noted Course Vital Signs Vital signs: Vital Signs Temperature 36.8 C 06/13/24 18:46 Pulse 79 06/13/24 18:46 Respiratory Rate 18 06/13/24 18:46 Blood Pressure 148/79 H 06/13/24 18:46 Pulse Oximetry 93 06/13/24 18:46 Temperature 36.8 C 06/13/24 19:25 Temperature Source Oral 06/13/24 18:46 Pulse 81 06/13/24 19:25 Pulse 81 06/13/24 19:20 Respiratory Rate 12 06/13/24 19:20 Respiratory Effort Non-Labored 06/13/24 19:17 Respiratory Depth Normal 06/13/24 19:17 Respiratory Pattern Normal 06/13/24 19:17 Blood Pressure 177/57 H 06/13/24 19:25 Blood Pressure Mean 102 06/13/24 19:15 Blood Pressure Position Sitting 06/13/24 18:46 Pulse Oximetry 96 06/13/24 19:25 Oxygen Delivery Method Room Air 06/13/24 19:25 Oxygen Flow Rate 0 06/13/24 18:46 Pain Level 0 06/13/24 18:46 Lab/Test Results Lab/Test Results: Laboratory Tests Range/Units 06/13/24 19:10 WBC (4.4-10.8) 10^3/uL 6.14 RBC (3.93-5.22) 10^6/uL 3.75 L Hgb (11.2-15.7) g/dL 12.1 Hct (36.0-46.0) % 33.7 L MCV (80-95) fL 90 MCH (27.0-33.0) pg 32.3 MCHC (32.0-36.0) % 35.9 RDW (11.7-14.6) % 12.3 Plt Count (130-400) 10^3/uL 249 MPV (8.0-11.0) fL 8.8 Immature Gran % % 0.7 Neutrophils % % 85.4 Lymphocytes % % 8.8 Monocytes % % 4.9 Eosinophils % % 0.0 Basophils % % 0.2 Nucleated RBC % (0.0-0.3) % 0.0 Absolute Neutrophils (1.2-6.7) 10^3/uL 5.25 Absolute Lymphocytes (1.2-3.4) 10^3/uL 0.54 L Absolute Monocytes (0.1-0.8) 10^3/uL 0.30 Absolute Eosinophils (0.0-0.7) 10^3/uL 0.00 Absolute Basophils (0.0-0.2) 10^3/uL 0.01 Medical Decision Making Quality:SDOH Health Related Social Needs: No Data to Display PFSH All Active Problems (Updated 06/13/24 @ 20:51 by Anisha Key) Hyponatremia (Acute) HCAP (healthcare-associated pneumonia) (Acute) Closed fracture of left proximal humerus (Acute 06/18/23) Abnormal ankle brachial index (Acute) Concussion (Acute) Ganglion of left wrist (Acute) S/P Excision: 07/30/2021 Cyst (Acute) Right shoulder PAD (peripheral artery disease) (Acute) Infected sebaceous cyst of skin (Acute) Former smoker (Acute) 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) COVID-19 (Acute) 05/2021 Sebaceous cyst (Acute) Contusion of left knee (Acute) Leg wound, left (Acute) Medical History Infected animal bite of lower leg Struck by pig, initial encounter Pulmonary granuloma RLL Wedge Resection 06/2017 COPD (chronic obstructive pulmonary disease) Carotid stenosis CAD (coronary artery disease) CKD (chronic kidney disease) stage 4, GFR 15-29 ml/min Chronic renal insufficiency Hx of malignant melanoma Diabetes mellitus type 1 Pump [place] situ [place] [facility] [place] Hyperlipidemia Benign hypertension 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 Surgical History History of incision and drainage (~09/2022) left lower leg I&D after laceration S/P cardiac cath stent placed 4 month ago Hx of removal of cyst (~07/20/21) upper left chest back excision of melanoma on arm. Trigger Finger release (03/29/11) LEFT THUMB Stent placement LE for intermittent claudication Oophrectomy, Both Abdominal hysterectomy (~2001) Carotid endarterectomy bilateral. Social History Smoking/Tobacco Use Status: Current every day Tobacco Type: cigarettes Smoking risk assessment performed?: Yes Alcohol Intake: current Alcohol Intake frequency: a few times a week Alcohol type: hard liquor Drug use: Never Substance use type: does not use Housing: apartment Current gender identity: female Do you feel safe at home: Yes Do you feel safe in your relationship?: Yes
[2024-06-13 19:52] LABS: ALT 27 U/L (14-59); AST 35 U/L (15-37); Albumin 3.9 g/dL (3.4-5.0); Alkaline Phosphatase 103 U/L (46-116); Anion Gap 2.3 mmol/L (3-11); BUN 31 mg/dL (7-18); Bilirubin, Total 1.2 mg/dL (0.2-1.0); CO2 34.7 mmol/L (21.0-32.0); Calcium 9.1 mg/dL (8.5-10.1); Chloride 80 mmol/L (98-107); Cholesterol 270 mg/dL (<200); Estimated GFR 27.21 (mL/min/1.73m2); Glucose 195 mg/dL (74-106); Magnesium 2.4 mg/dL (1.8-2.4); Potassium 4.6 mmol/L (3.5-5.1); TSH (W/Ref FT4) 2.53 uIU/mL (0.36-3.74); Triglyceride 82 mg/dL (<150)
[2024-06-13 19:56] LABS: Calculated LDL 60 mg/dL (<100); HDL Cholesterol 194 mg/dL (>or=50)
[2024-06-13 19:57] LABS: Sodium 117 mmol/L (136-145)
[2024-06-13 20:34] LABS: Bilirubin Negative (Negative); Blood Trace-lysed (Negative); Clarity Clear (Clear); Glucose Negative (Negative); Ketones Negative (Negative); Leukocyte Esterase Negative (Negative); Nitrite Negative (Negative); Specific Gravity 1.015 (1.005-1.025); Urobilinogen 0.2 mg/dL (Up to 0.2)
[2024-06-13 20:41] LABS: Bacteria Negative HPF (Negative); C & S Indicated? No; Crystals Negative HPF (Negative); Epithelial Cells Many HPF (Negative); Mucus Negative (Negative); Other Cells Rare Renal (Negative); WBC 0-2 HPF (0-5)
[2024-06-13] MEDS: SODIUM CHLORIDE 3% 500 ML 15 ML IV INF (21:11)
[2024-06-13 21:41] LABS: Sodium 118 mmol/L (136-145)
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
[2024-06-13 22:36] LABS: Sodium 120 mmol/L (136-145)
[2024-06-13 23:23] LABS: Sodium, Urine 63 mmol/L
[2024-06-13 23:38] LABS: Sodium 121 mmol/L (136-145)
[2024-06-14] VITALS (49 sets, daily range): BP systolic 106–213; BP diastolic 39–92; PULSE 54–89; RESP 8–35; TEMP 36.2–37.3; O2SAT 78–97
[2024-06-14 00:46] LABS: Sodium 121 mmol/L (136-145)
[2024-06-14 04:18] LABS: Sodium 123 mmol/L (136-145)
[2024-06-14 06:40] LABS: Anion Gap 3.2 mmol/L (3-11); BUN 31 mg/dL (7-18); CO2 34.8 mmol/L (21.0-32.0); CREATININE 1.7 mg/dL (0.55-1.02); Calcium 8.8 mg/dL (8.5-10.1); Chloride 88 mmol/L (98-107); Estimated GFR 33.07 (mL/min/1.73m2); Glucose 178 mg/dL (74-106); Potassium 3.7 mmol/L (3.5-5.1); Sodium 126 mmol/L (136-145)
[2024-06-14] MEDS: Levothyroxine 75 MCG TAB (06:52)
[2024-06-14] MEDS: Levothyroxine 100 MCG TAB (06:52)
--- NOTE | 2024-06-14 09:32 | PDOC.CMIN ---
Care Management Initial Assmt Initial Assessment Reason for Hospitalization: Hyponatremia Functional Status/Living Situation Patient Presentation: Casandra was lying in bed when CM met with her. She was very pleasant and easily engaged with CM. Casandra was admitted with severe hyponatremia with a sodium of 116. She was treated and serial bloodwork indicated that she has stabilized at 126. The original plan was for her to discharge today but she had a period of not feeling well so will remain until tomorrow. 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 She has 2 adult children and 5 grandsons. She is independent at baseline and does not receive any community services. 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: N 11/17/22 11:47 Date Asked 06/13/24 06/13/24 14:25 AD Date Reviewed 06/13/24 06/13/24 21:38 COLST On File at [facility] No 06/13/24 21:38 COLST Date Scanned Code Status Resuscitation Status Full Code Portal Pt does not currently have a portal and education provided: Yes Insurance Coverage/Financial Issues Insurance: [employer] Medicaid Care Team Visit Care Team Role Provider Type Shirley Yu MD Primary Care Provider [facility] STAFF PHYSICIAN Anisha Key Emergency Provider NURSE PRACTITIONER Luisito Jovel Admit Provider [facility] STAFF PHYSICIAN Attending Provider Discharge Potential Discharge Needs: PCP F/U Appt Anticipated Barriers to Discharge: Medical Status Patient/Family Education Needs: Review discharge instructions, discuss Ask Me Three Transportation: Private vehicle Plan: Anticipate Casandra will be discharged home with no new services. She will follow up with her community providers and plan of care and transport with family. CM will follow and continue to support discharge planning. Social Determinants of Health Screening Social Determinants of Health last assessed: 06/14/24 Will the Patient Participate in the Screening?: Yes Do you worry about having a steady place to live?: no Problems where you live: no known problems In the past 12 months, have you had to go without electric, gas, oil or water in your home?: no Have you or anyone in your house had to go without enough food to eat?: no Has lack of transportation kept you from medical appointments or from doing things needed for daily living?: no Has anyone in your life made you feel unsafe or unsupported?: no How hard is it for you to pay for the very basics like food, housing, medical care, and heating? Would you say it is:: Not hard at all Do you want help finding or keeping work or a job?: I do not need or want help If for any reason you need help with day-to-day activities such as bathing, preparing meals, shopping, managing finances, etc., do you get the help you need?: I don?t need any help How often do you feel lonely or isolated from those around you?: Never Do you speak a language other than [place] at home?: Yes Does the patient want assistance with any of the above?: No Health Related Social Needs Health related social needs: education (Z55.6) PFSH All Active Problems Anemia in CKD (chronic kidney disease) (Acute) Hyponatremia (Acute) HCAP (healthcare-associated pneumonia) (Acute) Closed fracture of left proximal humerus (Acute 06/18/23) Abnormal ankle brachial index (Acute) Concussion (Acute) Ganglion of left wrist (Acute) S/P Excision: 07/30/2021 Cyst (Acute) Right shoulder PAD (peripheral artery disease) (Acute) Infected sebaceous cyst of skin (Acute) Former smoker (Acute) Hx of custodial use of blood thinners (Acute) COVID-19 (Acute) 05/2021 Sebaceous cyst (Acute) Contusion of left knee (Acute) Leg wound, left (Acute) Medical History Heart failure with recovered ejection fraction (HFrecEF) Infected animal bite of lower leg Struck by pig, initial encounter Pulmonary granuloma RLL Wedge Resection 06/2017 COPD (chronic obstructive pulmonary disease) Carotid stenosis CAD (coronary artery disease) CKD (chronic kidney disease) stage 4, GFR 15-29 ml/min Chronic renal insufficiency Hx of malignant melanoma Diabetes mellitus type 1 [place] [facility] Hyperlipidemia Benign hypertension 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 Surgical History History of incision and drainage (~09/2022) left lower leg I&D after laceration S/P cardiac cath stent placed 4 month ago Hx of removal of cyst (~07/20/21) upper left chest back excision of melanoma on arm. Trigger Finger release (03/29/11) LEFT THUMB Stent placement LE for intermittent claudication Oophrectomy, Both Abdominal hysterectomy (~2001) Carotid endarterectomy bilateral. Social History Smoking/Tobacco Use Status: Current every day Tobacco Type: cigarettes Smoking risk assessment performed?: Yes Alcohol Intake: current Alcohol Intake frequency: a few times a week Alcohol type: hard liquor Drug use: Never Substance use type: does not use Housing: condominium Current gender identity: female Do you feel safe at home: Yes Do you feel safe in your relationship?: Yes
[2024-06-14] MEDS: Rosuvastatin 10 MG TAB PO (10:12)
[2024-06-14] MEDS: Apixaban 5 MG TAB PO ×2 (10:12→19:45)
[2024-06-14] MEDS: Pantoprazole 40 MG TABCR PO ×2 (10:12→19:45)
[2024-06-14] MEDS: amLODIPine 5 MG TAB PO (10:12)
[2024-06-14] MEDS: Cholecalciferol (Vitamin D3) 1,000 UNIT TAB 1000 UNITS PO (10:13)
[2024-06-14] MEDS: Carvedilol 12.5 MG TAB PO ×2 (10:13→19:45)
[2024-06-14] MEDS: Sacubitril/Valsartan 24 mg/26 mg TAB 1 EACH PO ×2 (10:13→19:45)
[2024-06-14] MEDS: Furosemide 80 MG TAB PO (10:13)
[2024-06-14] MEDS: Ferrous Gluconate 324 MG TAB PO (10:13)
--- NOTE | 2024-06-14 10:15 | RT.EKG_ITS ---
APPROVED REPORT Exam: Resting ECG Reason for Exam: change on tele Patient Location: I HR:76 bpm ECG Measurements Heart Rate 76 AXIS MA 85 P 146 QRSd 112 QRS 10 QT 538 T 46 QTc 634 Conclusion Sinus rhythm PACs First-degree AV block Minor nondiagnostic ST abnormalities Prolonged QT interval...QTc >500mS
[2024-06-14] MEDS: Aspirin E.C. 81 MG TABEC PO (10:18)
[2024-06-14] MEDS: Normal Saline Flush 10 ML SYR (10:26)
--- NOTE | 2024-06-14 10:30 | RT.EKG_ITS ---
APPROVED REPORT Exam: Resting ECG Reason for Exam: tele changes Patient Location: I HR:76 bpm ECG Measurements Heart Rate 76 AXIS [place] 85 P 146 QRSd 112 QRS 10 QT 538 T 46 QTc 634 Conclusion Sinus rhythm...P axis (-45,135) Atrial premature beat First-degree AV block IVCD Prolonged QT interval...QTc >500mS
[2024-06-14] MEDS: Insulin Aspart 300 UNITS/3 ML PEN SC ×2 (11:38→18:14)
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
--- NOTE | 2024-06-14 13:40 | DM INPTCON_ITS ---
Date of service: 06/14/24 Time of Service: 13:00 Diabetes Inpatient Consult Reason for Visit: consult received re: diabetes mgt/education DESCRIPTION/ASSESSMENT: Pt known to me from admission last month - managing type 1 diabetes for over 40 years. Uses [employer] CGM and pump system. Her weight is down ~6kg since 05/22/24. LAst A1C documented 7.8% last September -typically under 8 historically. fasting glucose 178 this morning but glucose niall to 400's at fingersticks at lunch today - pt states control is much worse in hospital due to different approach with insulin coverage - there is a correction given but no additional insulin added to bolus to cover meal carbohydrates. Also no basal insulin ordered currently. Pt denies changes in weight (although noted above) and feels scales are inconsistent with bed scales - I agreed. Pt insulin pump malfunctioning today - showed low battery sign and nursing gave new battery but still didn't help and Alexander states it wont turn on now. I could not help with this after trying to troubleshoot. Pt confirms she still has continuous glucose monitor, insulin pens and can straighten things out after discharge. INTERVENTION: PT reports no nutrition concerns. Declines education at this time. As patient's pump is non-functioning right now, would recommend tighter insulin coverage: -recommend 10units insulin glargine q 24 hours -recommend insulin aspart for corrections at each meal and 17:00. -recommend additional insulin aspart at meals to cover carb intake at 1unit:15gram carb ratio. -continue glucose checks to avoid hypo. -will change patient diet order from heart healthy to consistent carbohydrate. PLAN: will monitor glucose trends, po intake, weight, nutrition-related labs Time Spent in Nutritional Counseling and Treatment: 15 minutes
[2024-06-14 14:17] LABS: Anion Gap 3.7 mmol/L (3-11); BUN 31 mg/dL (7-18); CO2 34.3 mmol/L (21.0-32.0); CREATININE 2.2 mg/dL (0.55-1.02); Calcium 8.6 mg/dL (8.5-10.1); Chloride 88 mmol/L (98-107); Estimated GFR 24.27 (mL/min/1.73m2); Glucose 268 mg/dL (74-106); Potassium 3.3 mmol/L (3.5-5.1); Sodium 126 mmol/L (136-145)
--- NOTE | 2024-06-14 15:35 | CHAPLAIN ---
Casandra was resting in bed when I visited. She said she was going to be discharged today but had an episode so I decided to stay another night. Her SO, Дмитрий was visiting with her. I explained my role and offered support.
--- NOTE | 2024-06-14 17:07 | NUR.NOTE ---
Nursing Note: Pt requested to receive insulin after she finished eating
[2024-06-14 17:39] LABS: Osmolality, Urine 179 mOsm/kg (150-1150)
[2024-06-14] MEDS: Citalopram 20 MG TAB 40 MG PO (19:45)
[2024-06-14] MEDS: Magnesium Oxide 400 MG TAB PO (19:45)
[2024-06-14 21:24] LABS: Osmolality Serum 252 mOsm/kg (275-295)
[2024-06-14] MEDS: Insulin Aspart 300 UNITS/3 ML PEN 18 UNITS SC (23:58)
[2024-06-15] VITALS (22 sets, daily range): BP systolic 94–158; BP diastolic 48–105; PULSE 56–86; RESP 12–24; TEMP 37.1; O2SAT 89–100
[2024-06-15 01:11] LABS: Anion Gap 7.5 mmol/L (3-11); BUN 41 mg/dL (7-18); CO2 32.5 mmol/L (21.0-32.0); CREATININE 2.4 mg/dL (0.55-1.02); Calcium 8.6 mg/dL (8.5-10.1); Chloride 88 mmol/L (98-107); Estimated GFR 21.87 (mL/min/1.73m2); Potassium 3.7 mmol/L (3.5-5.1); Sodium 128 mmol/L (136-145)
[2024-06-15 01:14] LABS: Glucose 506 mg/dL (74-106)
[2024-06-15] MEDS: Levothyroxine 175 MCG TAB PO (06:12)
[2024-06-15] MEDS: Normal Saline Flush 10 ML SYR IVP ×3 (06:13→13:02)
[2024-06-15] MEDS: Insulin Aspart 300 UNITS/3 ML PEN SC ×2 (08:12→11:53)
[2024-06-15] MEDS: Carvedilol 12.5 MG TAB PO (08:16)
[2024-06-15] MEDS: Pantoprazole 40 MG TABCR PO (08:16)
[2024-06-15] MEDS: Rosuvastatin 10 MG TAB PO (08:16)
[2024-06-15] MEDS: amLODIPine 5 MG TAB PO (08:16)
[2024-06-15] MEDS: Sacubitril/Valsartan 24 mg/26 mg TAB 1 EACH PO (08:16)
[2024-06-15] MEDS: Apixaban 5 MG TAB PO (08:16)
[2024-06-15] MEDS: Ferrous Gluconate 324 MG TAB PO (08:16)
[2024-06-15] MEDS: Cholecalciferol (Vitamin D3) 1,000 UNIT TAB 1000 UNITS PO (08:16)
[2024-06-15] MEDS: Furosemide 80 MG TAB PO (08:16)
--- NOTE | 2024-06-15 08:16 | RESPIRATORY ---
Pt has new home CPAP machine (AirSense II, Auto CPAP 12-16, No O2 Bleed-in, DME: Pedro)
[2024-06-15] MEDS: Aspirin E.C. 81 MG TABEC PO (08:17)
[2024-06-15] MEDS: Lactated Ringers 500 ML IV (11:47)
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
--- NOTE | 2024-06-15 12:31 | PDOC.CMDIS ---
Date of service: 06/15/24 Time of Service: 12:31 LACE Index Scoring Tool Questions: Length of Stay (in days): 2 Was the patient admitted via the E.D.?: Yes Comorbidities: Liver or Renal Disease E.D. Visits: 3 Answers: Total Score: 13 Risk of Readmission: High Risk Care Management Discharge Plan Reason for Hospitalization: Hyponatremia Discharge Plan: Casandra is discharged home via private vehicle with family. Pt will follow up with her PCP and discharge plan of care as directed. No new services are ordered prior to discharge. Patient/Family Education Needs: Review discharge instructions, limitations and plan to follow up after discharge. Discuss ask me three. SDOH Health Related Social Needs: Health related social needs education (Z55.6)
== END 2024-06-15 15:05 | disposition home or self-care (01) | DRG 641 ==
LOC: ER 23:02 → ICU 06-14 02:20
PROVIDERS: Family Medicine; Admitting Provider Family Medicine; Emergency Provider Nurse Practitioner Family; PCP Family Medicine; Responsible Provider Hospitalist; Visit Provider Family Medicine
DX: E87.1 Hypo-osmolality and hyponatremia (principal); I13.0 Hypertensive heart and chronic kidney disease with heart failure and stage 1 through stage 4 chronic kidney disease, or unspecified chronic kidney disease; N18.4 Chronic kidney disease, stage 4 (severe); I50.32 Chronic diastolic (congestive) heart failure; E03.9 Hypothyroidism, unspecified; D63.1 Anemia in chronic kidney disease; E10.22 Type 1 diabetes mellitus with diabetic chronic kidney disease; I73.9 Peripheral vascular disease, unspecified; J44.9 Chronic obstructive pulmonary disease, unspecified; Z95.828 Presence of other vascular implants and grafts; I25.10 Atherosclerotic heart disease of native coronary artery without angina pectoris; Z96.41 Presence of insulin pump (external) (internal); Z86.73 Personal history of transient ischemic attack (TIA), and cerebral infarction without residual deficits; R53.1 Weakness; R51.9 Headache, unspecified; Z79.01 Long term (current) use of anticoagulants; Z90.2 Acquired absence of lung [part of]; E78.5 Hyperlipidemia, unspecified; Z95.5 Presence of coronary angioplasty implant and graft; F17.210 Nicotine dependence, cigarettes, uncomplicated
CPT/HCPCS: 00123; 36415; 80048; 80053; 80061; 82533; 83935; 93005; 99285; 81003; 81015; 83735; 83930; 84295; 84300; 84443; 85025; 93010; 99223; 99239; J1815

== ENCOUNTER 2024-06-27 15:38 | Outpatient (CLI) | payer OTHER, MEDICAID, SELFPAY ==
[2024-06-27 16:27] LABS: Hemoglobin A1C 8.5 % (<5.7)
[2024-06-27 16:39] LABS: Anion Gap 2.8 mmol/L (3-11); BUN 27 mg/dL (7-18); CO2 34.2 mmol/L (21.0-32.0); Calcium 9.1 mg/dL (8.5-10.1); Chloride 82 mmol/L (98-107); Estimated GFR 27.21 (mL/min/1.73m2); Glucose 256 mg/dL (74-106); NT-proBNP 5539 pg/mL (<300); Potassium 4.1 mmol/L (3.5-5.1); Uric Acid 6.7 mg/dL (2.6-6.0)
[2024-06-27 16:49] LABS: Sodium 119 mmol/L (136-145)
== END 2024-06-27 15:39 | disposition home or self-care (01) ==
LOC: LBO 15:38
PROVIDERS: PCP Family Medicine; Visit Provider Family Medicine
DX: E87.1 Hypo-osmolality and hyponatremia (principal); E10.319 Type 1 diabetes mellitus with unspecified diabetic retinopathy without macular edema
CPT/HCPCS: 36415; 80048; 82533; 83036; 83880; 84550

== ENCOUNTER 2024-06-27 19:16 | Inpatient (IN) | payer OTHER, MEDICAID, SELFPAY ==
[2024-06-27] VITALS (38 sets, daily range): BP systolic 149–196; BP diastolic 48–105; PULSE 57–72; RESP 11–19; TEMP 36.7; O2SAT 87–98
--- NOTE | 2024-06-27 19:45 | DI.RAD_ITS ---
Exam(s) XR SHOULDER RT COMPLETE 2+V EXAM: XR SHOULDER RT COMPLETE 2+V CLINICAL HISTORY: shoulder injury. TECHNIQUE: 2D digital imaging was performed. Five views. COMPARISON: CR XR SHOULDER LT COMPLETE 2+V from 11/07/2023 FINDINGS: BONES: No acute fracture is present. No bony destructive lesion is seen. JOINTS: No dislocation present. Mild degenerative changes of the AC joint. SOFT TISSUE: Swelling superior to the acromion IMPRESSION: No acute bony abnormality. DATA REPOSITORY: RADIATION DOSE DELIVERED:
--- NOTE | 2024-06-27 19:45 | DI.CT_ITS ---
Exam(s) CT HEAD CERVICAL SPINE WO EXAM: CT HEAD CERVICAL SPINE WO CLINICAL HISTORY: fall, [place]. TECHNIQUE: Imaging Protocol: Axial computed tomography images with coronal and sagittal reformatted images were created and reviewed COMPARISON: CT CT HEAD CERVICAL SPINE WO from 05/21/2024 FINDINGS: Head CT Ventricles and Extra axial spaces: Normal in size and morphology for the patient's age. Hemorrhage: None. Cerebral parenchyma: No evidence of mass or acute infarct. Midline shift: None. Brainstem/Cerebellum: Normal. Calvarium: Normal. Visualized Paranasal sinuses/Mastoids: Small amount of fluid at the inferior left mastoid air cells. Soft tissues: Unremarkable. Cervical Spine CT BONES: Vertebral body heights are maintained. Alignment is normal with the exception of degenerative straightening of the normal cervical lordosis. No change in the alignment of the previously noted fracture through the right side of the C2 verteb ral body and transverse foramen. There is no evidence of acute fracture. Degenerative disc changes and facet degenerative changes are seen . SOFT TISSUES: No paraspinal hematoma. The airway appears intact. No pneumothorax is seen at the lung apices. IMPRESSION: Head CT: No acute abnormality. C-spine CT: No change in previously noted right-sided C2 vertebral body and transverse foramen fractu re. no acute abnormality. RADIATION DOSE DELIVERED: 1,150.55mGy.cm Total DLP DATA REPOSITORY: All CT scans at this facility are submitted to the National Radiology Data Registry (NRDR) Dose Index Registry (DIR) with the [employer] (A[employer]). RADIATION OPTIMIZATION: All CT scans at this facility use at least one of these dose optimization te chniques: automated exposure control; mA and/or kV adjustment per patient size (includes targeted exa ms where dose is matched to clinical indication); or iterative reconstruction.
--- NOTE | 2024-06-27 19:45 | RT.EKG_ITS ---
APPROVED REPORT Exam: Resting ECG Reason for Exam: weakness, hyponatremia Patient Location: E HR:68 bpm ECG Measurements Heart Rate 68 AXIS TX 209 P 76 QRSd 105 QRS 0 QT 468 T 41 QTc 489 Conclusion Sinus rhythm. 68 NORMAL AXIS NO STEMI
--- NOTE | 2024-06-27 19:45 | DI.CT_ITS ---
Exam(s) CT CHEST WO EXAM: CT CHEST WO CLINICAL HISTORY: fall, ecchymosis right chest, anticoag TECHNIQUE: Imaging Protocol: Axial computed tomography images with coronal and sagittal reformatted images were created and reviewed. Computer aided detection (CAD) was utilized. CONTRAST MATERIAL: Intravenous: Omnipaque 350 Contrast volume:structured data ml. COMPARISON: CT HEAD WITHOUT CONTRAST from 03/23/[address] CHEST PE ABD PELVIS W from 04/17/2024 CR XR PORTABLE CHEST AP from 04/17/2024 CR XR CHEST 2V PA LATERAL from 05/21/2024 FINDINGS: Pulmonary parenchyma: No consolidation. No dominant measurable mass. Moderate emphysematous changes in the upper lobes. Calcified granulomas. Scarring at posterior right lung base. There is a 7 x 6 millimeter nodule noted posterior right lower lobe. Tracheobronchial tree: No bronchiectasis or mucous plugging. Mediastinum and Carly: No dominant adenopathy or fluid collection. Pleura: No effusion. No pneumothorax. Heart: The heart is not moderately dilated. Dense coronary artery calcifications are seen. Aorta: Thoracic aorta non-dilated. Moderate atherosclerotic changes. Pulmonary arteries: No gross evidence of emboli. Upper abdomen: No acute findings. Bones: Subacute appearing fractures of the anterolateral aspects of the left 6th through 9th ribs. S coliosis anddegenerative changes in the spine. No acute compression fractures. Soft tissues: Unremarkable. IMPRESSION: No acute abnormality. Subacute left 6th through 9th rib fractures. No acute fractures visible. 6 millimeter nodule at the right lower lobe. Solitary noncalcified solid nodules measuring 6???8 mm in patients with low clinical risk are recomme nded to undergo initial follow-up at 6???12 months depending on size, morphology, and patient prefere nce (grade 1C: strong recommendation, low- or [id number] evidence). (Osvaldo et al., 2017) For solitary solid noncalcified nodules measuring 6???8 mm in patients at high risk, an initial follo w-up examination is recommended at 6???12 months and again at 18???24 months (grade 1B: strong recomm endation, moderate quality evidence). (Osvaldo et al., 2017) Unexpected findings RADIATION DOSE DELIVERED: 136.27mGy.cm Total DLP DATA REPOSITORY: All CT scans at this facility are submitted to the National Radiology Data Registry (NRDR) Dose Index Registry (DIR) with the [employer] (ACR). RADIATION OPTIMIZATION: All CT scans at this facility use at least one of these dose optimization te chniques: automated exposure control; mA and/or kV adjustment per patient size (includes targeted exa ms where dose is matched to clinical indication); or iterative reconstruction.
[2024-06-27 20:42] LABS: Bilirubin Negative (Negative); Blood Moderate (Negative); Clarity Clear (Clear); Glucose 250 mg/dL (Negative); Ketones Trace mg/dL (Negative); Leukocyte Esterase Negative (Negative); Nitrite Negative (Negative); Specific Gravity 1.015 (1.005-1.025); Urobilinogen 0.2 mg/dL (Up to 0.2)
[2024-06-27 20:44] LABS: BE (Venous) 6 mmol/L (-2-3); HCO3 (Venous) 31 mmol/L (23-28); O2 Sat (Venous) 50 %; TCO2 (Venous) 29 mmol/L (24-29); pCO2 (Venous) 53 mmHg (41-51); pH (Venous) 7.38 (7.31-7.41); pO2 (Venous) 25 mmHg
[2024-06-27 20:49] LABS: Bacteria Few HPF (Negative); C & S Indicated? No; Casts Negative LPF (Negative); Crystals Negative HPF (Negative); Epithelial Cells Few HPF (Negative); Mucus Negative (Negative); WBC Negative HPF (0-5)
[2024-06-27 20:51] LABS: Abs Immature Grans 0.02 10^3/uL (0.0-0.06); Absolute Basophil Count 0.02 10^3/uL (0.0-0.2); Absolute Eosinophil Count 0.01 10^3/uL (0.0-0.7); Absolute Lymphocyte Count 0.47 10^3/uL (1.2-3.4); Absolute Monocyte Count 0.31 10^3/uL (0.1-0.8); Absolute Neutrophil Count 5.13 10^3/uL (1.2-6.7); Basophils % 0.3 %; Eosinophils % 0.2 %; HGB 11.7 g/dL (11.2-15.7); Immature Grans % 0.3 %; Lymphocytes % 7.9 %; MCH 32.6 pg (27.0-33.0); MCHC 35.5 % (32.0-36.0); MCV 92 fL (80-95); MPV 9.4 fL (8.0-11.0); Monocytes % 5.2 %; Neutrophils % 86.1 %; Platelet Count 251 10^3/uL (130-400); RBC 3.59 10^6/uL (3.93-5.22); RDW 12.4 % (11.7-14.6); RDW-SD 41.5 fL; WBC 5.96 10^3/uL (4.4-10.8)
[2024-06-27 20:58] LABS: Prothrombin Time 10.4 sec (9.1-11.1)
[2024-06-27 21:21] LABS: ALT 31 U/L (14-59); AST 27 U/L (15-37); Albumin 3.5 g/dL (3.4-5.0); Alkaline Phosphatase 119 U/L (46-116); Anion Gap 6.1 mmol/L (3-11); BUN 28 mg/dL (7-18); Bilirubin, Total 1.5 mg/dL (0.2-1.0); CO2 30.9 mmol/L (21.0-32.0); CREATININE 2.2 mg/dL (0.55-1.02); Chloride 80 mmol/L (98-107); Estimated GFR 24.27 (mL/min/1.73m2); Glucose 404 mg/dL (74-106); Magnesium 2.3 mg/dL (1.8-2.4); Potassium 4.4 mmol/L (3.5-5.1); TSH (W/Ref FT4) 2.33 uIU/mL (0.36-3.74); Total Protein 6.7 g/dL (6.4-8.2)
[2024-06-27 21:23] LABS: Sodium 117 mmol/L (136-145)
[2024-06-27] MEDS: Insulin REGULAR-Human 100 UNITS/ML UNIT 12 UNITS SC (21:39)
--- NOTE | 2024-06-27 21:48 | DI.VRAD_ITS ---
Addendum created by Zenobia Gomez MD on 06/27/2024 9:51:18 PM EDT: Findings discussed with Hailey Rubio 06/27/2024 9:51 PM EDT. Initial report created on 06/27/2024 9:47:50 PM EDT: PROCEDURE INFORMATION: Exam: CT Head Without Contrast Exam date and time: 06/27/2024 8:51 PM Age: 63 years old Clinical indication: Injury or trauma; Blunt trauma (contusions or hematomas); Fall, hi TECHNIQUE: Imaging protocol: Computed tomography of the head without contrast. COMPARISON: CT HEAD CERVICAL SPINE WO 05/21/2024 1:23 PM FINDINGS: Brain: Generalized atrophy and chronic white matter ischemic changes. There is no mass, acute hemorrhage or acute infarct. Cerebral ventricles: No ventriculomegaly. Paranasal sinuses: Visualized sinuses are unremarkable. No fluid levels. Mastoid air cells: There is a left mastoid effusion.. Bones: Unremarkable. No acute fracture. Soft tissues: Unremarkable. IMPRESSION: No acute intracranial abnormality. PROCEDURE INFORMATION: Exam: CT Cervical Spine Without Contrast Exam date and time: 06/27/2024 8:51 PM Age: 63 years old Clinical indication: Injury or trauma; Blunt trauma (contusions or hematomas); Fall, hi TECHNIQUE: Imaging protocol: Computed tomography of the cervical spine without contrast. COMPARISON: CT HEAD CERVICAL SPINE WO 05/21/2024 1:23 PM FINDINGS: Bones: There is an acute mildly displaced fracture of the right C2 superior articular facet extending into the right transverse foramen and right C2-C3 joint. Normal alignment. No significant disc bulge or herniation. No severe spinal canal stenosis. Advanced right C3-C4 and C5-C6 uncovertebral spondylosis and right C3-C4 facet arthropathy. Lungs: Lung apices are normal. Soft tissues: Unremarkable. IMPRESSION: Acute fracture at C2 as described with extension to the superior articular facet and C2 right transverse foramen. A right vertebral artery injury can not be excluded. CT angiogram may be considered for further evaluation as clinically indicated. Dictated and Authenticated by: Zenobia Gomez MD. Orderin Ramiro Hart MD
--- NOTE | 2024-06-27 22:26 | ED.GENADUL_ITS ---
Discharge Plan Disposition Patient Disposition: Admit to [facility] Discharge Details Chief Complaint: GenMedical Clinical Impression: Hyponatremia, Acute hyperglycemia, Traumatic ecchymosis of chest Primary Care Provider: Shirley Yu V ED Provider: Hailey Rubio Home Meds and New Rx's Prescriptions: No Action rosuvastatin 10 mg tablet 10 mg PO DAILY cholecalciferol (vitamin D3) [Vitamin D3] 1,000 UNIT capsule 1,000 unit PO DAILY humalog pump subcut 31/10 albuterol sulfate 90 mcg/actuation HFA aerosol inhaler 2 puff inhalation Q6H PRN citalopram 20 mg tablet 40 mg PO HS clopidogrel 75 mg tablet 75 mg PO DAILY magnesium oxide 250 mg magnesium tablet 500 mg PO QPM ferrous gluconate 324 mg (37.5 mg iron) tablet 324 mg PO DAILY furosemide 20 mg tablet 20 mg PO DAILY aspirin 81 MG tablet,delayed release (DR/EC) 81 mg PO DAILY acetaminophen 500 mg tablet 1,000 mg PO Q8H PRN (Reason: pain) Qty: 60 3RF insulin aspart U-100 [Novolog U-100 Insulin aspart] 100 unit/mL solution Patient Comments: INJECT 1.4 UNITS CONTINUOUSLY WITH BOLUS BEFORE MEALS Dme 1 1.73 m2 SQ ONB PRN PRNQty: 50 0RF amlodipine 5 mg tablet 5 mg PO DAILY Patient Comments: TAKE ONE TABLET BY MOUTH EVERY DAY pantoprazole 40 mg tablet,delayed release (DR/EC) 40 mg PO BID Patient Comments: TAKE ONE TABLET BY MOUTH TWICE A DAY levothyroxine 175 mcg tablet 175 mcg PO DAILY Patient Comments: TAKE ONE TABLET BY MOUTH EVERY DAY Eliquis 5 mg tablet 5 mg PO BID Entresto 24-26 mg tablet 1 tab PO BID carvedilol 12.5 mg tablet 12.5 mg PO BID HPI General Date/Time Provider Initiated Documentation: 06/27/24 19:31 . HPI Narrative: This 63-year-old female multiple medical comorbidities including CHF on Lasix diabetes on insulin hypothyroidism hyperlipidemia chronic anticoagulation on Eliquis renal failure, hyponatremia presents with report of lab work being drawn today secondary to lightheadedness and frequent falls and told to be evaluated for acute hyponatremia. Patient states she feels lightheaded today. States this week her symptoms have become exacerbated. Denies any chest pain. Denies any calf pain or swelling. Related Data Home Medications ?Medication ?Instructions ?Recorded ?Confirmed aspirin 81 mg tablet,delayed 81 mg PO DAILY 08/13/12 06/27/24 release Humalog Pump unit subcut 24/7 01/07/16 11/07/23 cholecalciferol (vitamin D3) 25 1,000 unit PO DAILY 01/07/16 06/27/24 mcg (1,000 unit) capsule (Vitamin D3) acetaminophen 500 mg tablet 1,000 mg (2 x 500 mg) PO Q8H PRN 07/20/21 06/27/24 pain #60 tabs rosuvastatin 10 mg tablet 10 mg PO DAILY 08/17/22 06/27/24 insulin aspart U-100 100 unit/mL 09/23/22 11/07/23 subcutaneous solution (Novolog U-100 Insulin aspart) amlodipine 5 mg tablet 5 mg PO DAILY 06/18/23 06/27/24 pantoprazole 40 mg tablet,delayed 40 mg PO BID 06/18/23 06/27/24 release albuterol sulfate 90 mcg/actuation 2 puff inhalation Q6H PRN 02/01/24 06/27/24 aerosol inhaler citalopram 20 mg tablet 40 mg PO HS 02/01/24 06/27/24 clopidogrel 75 mg tablet 75 mg PO DAILY 02/01/24 06/27/24 ferrous gluconate 324 mg (37.5 mg 324 mg PO DAILY 02/01/24 06/27/24 iron) tablet furosemide 20 mg tablet 20 mg PO DAILY 02/01/24 06/27/24 magnesium oxide 500 mg PO QPM 02/01/24 06/27/24 apixaban 5 mg tablet (Eliquis) 5 mg PO BID 05/21/24 06/27/24 levothyroxine 175 mcg tablet 175 mcg PO DAILY 05/21/24 06/27/24 sacubitril 24 mg-valsartan 26 mg 1 tab PO BID 05/21/24 06/27/24 tablet (Entresto) carvedilol 12.5 mg tablet 12.5 mg PO BID 05/22/24 06/27/24 Dme 1 1.73 m2 SQ ONB PRN PRN #50 SYRGS 06/15/24 06/27/24 Previous Rx's ?Medication ?Instructions ?Recorded acetaminophen 500 mg tablet 1,000 mg (2 x 500 mg) PO Q8H PRN 07/20/21 pain #60 tabs Dme 1 1.73 m2 SQ ONB PRN PRN #50 SYRGS 06/15/24 Allergies Allergy/AdvReac Type Severity Reaction Status Date / Time Sulfa (Sulfonamide Allergy Severe RENAL Verified 06/27/24 19:19 Antibiotics) FAILURE sulfamethoxazole (From Allergy Severe renal Verified 06/27/24 19:19 Bactrim) failure Penicillins Allergy Unknown Other (See Verified 06/27/24 19:19 Comment) trimethoprim (From Bactrim) Allergy Other (See Verified 06/27/24 19:19 Comment) General Stated Complaint: GenMedical DAVID: 3 Exam Narrative Exam Narrative: Patient is alert and oriented she is in no acute distress she has bruising on her entire right thorax preserving abdomen and pelvis in addition to her bilateral lower extremities pupils are equal round reactive to light and accommodation. GCS 15 no hemotympanum no cervical spine tenderness no visible sign of neck trauma. Alert and oriented x 4 no abdominal tenderness no tenderness over area of bruising on right shoulder right upper thorax and lower extremities neurovascularly intact Course Vital Signs Vital signs: Vital Signs Temperature 36.7 C 06/27/24 19:16 Pulse 72 06/27/24 19:16 Respiratory Rate 18 06/27/24 19:16 Blood Pressure 151/63 H 06/27/24 19:16 Pulse Oximetry 88 L 06/27/24 19:16 Temperature 36.7 C 06/27/24 19:16 Temperature Source Oral 06/27/24 19:16 Pulse 67 06/27/24 21:47 Pulse 68 06/27/24 21:47 Respiratory Rate 14 06/27/24 21:47 Respiratory Effort Normal 06/27/24 19:29 Respiratory Depth Normal 06/27/24 19:29 Respiratory Pattern Normal 06/27/24 19:29 Blood Pressure 168/63 H 06/27/24 21:47 Blood Pressure Mean 124 06/27/24 21:47 Blood Pressure Position Sitting 06/27/24 19:16 Pulse Oximetry 93 06/27/24 21:44 Oxygen Delivery Method Room Air 06/27/24 19:16 Oxygen Flow Rate 0 06/27/24 19:16 Pain Level 0 06/27/24 19:16 Lab/Test Results Lab/Test Results: Laboratory Tests Range/Units 06/27/24 06/27/24 20:20 20:39 WBC (4.4-10.8) 10^3/uL 5.96 RBC (3.93-5.22) 10^6/uL 3.59 L Hgb (11.2-15.7) g/dL 11.7 Hct (36.0-46.0) % 33.0 L MCV (80-95) fL 92 MCH (27.0-33.0) pg 32.6 MCHC (32.0-36.0) % 35.5 RDW (11.7-14.6) % 12.4 Plt Count (130-400) 10^3/uL 251 MPV (8.0-11.0) fL 9.4 Immature Gran % % 0.3 Neutrophils % % 86.1 Lymphocytes % % 7.9 Monocytes % % 5.2 Eosinophils % % 0.2 Basophils % % 0.3 Nucleated RBC % (0.0-0.3) % 0.0 Absolute Neutrophils (1.2-6.7) 10^3/uL 5.13 Absolute Lymphocytes (1.2-3.4) 10^3/uL 0.47 L Absolute Monocytes (0.1-0.8) 10^3/uL 0.31 Absolute Eosinophils (0.0-0.7) 10^3/uL 0.01 Absolute Basophils (0.0-0.2) 10^3/uL 0.02 PT (9.1-11.1) sec 10.4 INR (0.9-1.1) 1.0 VBG pH (7.31-7.41) 7.38 VBG pCO2 (41-51) mmHg 53 H VBG pO2 mmHg 25 VBG HCO3 (23-28) mmol/L 31 H VBG Total CO2 (24-29) mmol/L 29 VBG O2 Saturation % 50 VBG Base Excess (-2-3) mmol/L 6 H Sodium (136-145) mmol/L 117 L* Potassium (3.5-5.1) mmol/L 4.4 Chloride (98-107) mmol/L 80 L Carbon Dioxide (21.0-32.0) mmol/L 30.9 Anion Gap (3-11) mmol/L 6.1 BUN (7-18) mg/dL 28 H Creatinine (0.55-1.02) mg/dL 2.2 H Est GFR (CKD-EPI 2020) (mL/min/1.73m2) 24.27 Glucose (74-106) mg/dL 404 H Calcium (8.5-10.1) mg/dL 9.0 Magnesium (1.8-2.4) mg/dL 2.3 Total Bilirubin (0.2-1.0) mg/dL 1.5 H AST (15-37) U/L 27 ALT (14-59) U/L 31 Alkaline Phosphatase (46-116) U/L 119 H Total Protein (6.4-8.2) g/dL 6.7 Albumin (3.4-5.0) g/dL 3.5 TSH (0.36-3.74) uIU/mL 2.33 Urine Color (Yellow) Yellow Urine Clarity (Clear) Clear Urine pH (5-8) 7.0 Ur Specific [place] (1.005-1.025) 1.015 Urine Protein (Neg-Trace) mg/dL >=300 H Urine Ketones (Negative) mg/dL Trace H Urine Blood (Negative) Moderate H Urine Nitrite (Negative) Negative Urine Bilirubin (Negative) Negative Urine Urobilinogen (Up to 0.2) mg/dL 0.2 Ur Leukocyte Esterase (Negative) Negative Urine RBC (0-2) HPF 10-20 H Urine WBC (0-5) HPF Negative Ur Epithelial Cells (Negative) HPF Few Urine Crystals (Negative) HPF Negative Urine Bacteria (Negative) HPF Few Urine Casts (Negative) LPF Negative Urine Mucus (Negative) Negative Ur Culture Indicated? No Urine Glucose (Negative) mg/dL 250 H Medical Decision Making This is a medically complex 63-year-old female anticoagulated with hyponatremia with frequent falls. Her glucose is elevated at 400 and and her sodium is 119 decreased 117 during this visit. The may be an elevated of pseudo hyponatremia, however given patient's frequent falls and bruising throughout her upper extremities and lower extremities she may require admission to the hospital. She is also on Lasix and hypochloremic. I will give insulin 12 units for a fingerstick of 436 and recheck a BMP and fingerstick glucose. Before initiating hypertonic saline. at [address] [facility]ology called and described an acute C2 fracture with into the foramen magnum, however after reviewing [facility] records which is where patient tells me she was hospitalized I do see that she had a pr ior fracture on April 18, 2024 that was identical to the report today in the absence of cervical spine pain I will speak with neurosurgery at [facility] to review recommendations. Spoke with Dr. Gallo at [facility] orthospine and he reviewed the films and actually consulted on this patient when she was at [facility] and feels as though the fracture is healing well and says she has been removed from the collar. He suspects this is a subacute fracture based on reviewing the films from today's visit and comparing them to prior. He said that no additional intervention is necessary at this time. Patient did receive 12 units of insulin and her repeat BMP shows an increasing sodium of 120 I held off on giving her any saline secondary to an ejection fraction of 30%. Do not feel she requires hypertonic saline at this time as her sodium is improving and I suspect there is a component of pseudohyponatremia however she is symptomatic and the glucose will take time to correct so she will need a period of observation. Case discussed with Dr. Schneider who is agreeable to admitting patient at this time she is pending admission Quality:SDOH Health Related Social Needs: Health related social needs education (Z55.6) Critical Care Time Critical Care Time Attestation: Approximately 35 minutes of critical care time secondary to acute hyponatremia and hyperglycemia requiring insulin telemetry monitoring diagnostic interpre tation and review diagnostic lab evaluation and ultimately admission to the hospital [facility] All Active Problems (Updated 06/27/24 @ 23:17 by GENTRY Harper) Traumatic ecchymosis of chest (Acute) Acute hyperglycemia (Acute) Anemia in CKD (chronic kidney disease) (Acute) Hyponatremia (Acute) HCAP (healthcare-associated pneumonia) (Acute) Closed fracture of left proximal humerus (Acute 06/18/23) Abnormal ankle brachial index (Acute) Concussion (Acute) Ganglion of left wrist (Acute) S/P Excision: 07/30/2021 Cyst (Acute) Right shoulder PAD (peripheral artery disease) (Acute) Infected sebaceous cyst of skin (Acute) Former smoker (Acute) 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 (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) COVID-19 (Acute) 05/2021 Sebaceous cyst (Acute) Contusion of left knee (Acute) Leg wound, left (Acute) Medical History Heart failure with recovered ejection fraction (HFrecEF) Infected animal bite of lower leg Struck by pig, initial encounter Pulmonary granuloma RLL Wedge Resection 06/2017 COPD (chronic obstructive pulmonary disease) Carotid stenosis CAD (coronary artery disease) CKD (chronic kidney disease) stage 4, GFR 15-29 ml/min Chronic renal insufficiency Hx of malignant melanoma Diabetes mellitus type 1 Pump in situ per [facility] note Hypothyroidism Hyperlipidemia Benign hypertension 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 Surgical History History of incision and drainage (~09/2022) left lower leg I&D after laceration S/P cardiac cath stent placed 4 month ago Hx of removal of cyst (~07/20/21) upper left chest back excision of melanoma on arm. Trigger Finger release (03/29/11) LEFT THUMB Stent placement LE for intermittent claudication Oophrectomy, Both Abdominal hysterectomy (~2001) Carotid endarterectomy bilateral. Social History Smoking/Tobacco Use Status: Current every day Tobacco Type: cigarettes Smoking risk assessment performed?: Yes Alcohol Intake: current Alcohol Intake frequency: a few times a week Alcohol type: hard liquor Drug use: Never Substance use type: does not use Housing: condominium Current gender identity: female Do you feel safe at home: Yes Do you feel safe in your relationship?: Yes
--- NOTE | 2024-06-27 22:28 | DI.VRAD_ITS ---
PROCEDURE INFORMATION: Exam: CT Chest Without Contrast; Diagnostic Exam date and time: 06/27/2024 9:00 PM Age: 63 years old Clinical indication: Injury or trauma; Blunt trauma (contusions or hematomas); Fall, ecchymosis right chest, anticoag TECHNIQUE: Imaging protocol: Diagnostic computed tomography of the chest without contrast. 3D rendering (Not supervised by radiologist): MIP and/or 3D reconstructed images were created by the technologist. COMPARISON: CT CHEST PE ABD PELVIS W 04/17/2024 4:30 PM FINDINGS: Lungs: Moderate changes of emphysema throughout the bilateral upper lungs. Small scattered calcified granulomas are present throughout both lungs. No acute infiltrate. Pleural spaces: Unremarkable. No pneumothorax. No pleural effusion. Heart: Unremarkable. No cardiomegaly. No pericardial effusion. Coronary arteries: Dense diffuse coronary artery calcifications. Lymph nodes: Unremarkable. No enlarged lymph nodes. Vasculature: Moderate atherosclerotic calcification throughout the aorta and great vessels. No aneurysm. Bones/joints: There are partially healed nonsegmental anterolateral fractures of the left 6th through 9th ribs. Partially visualized lumbar scoliosis. Moderate multilevel degenerative disc changes throughout the thoracic spine. No acute vertebral body compression fracture. Soft tissues: Unremarkable. IMPRESSION: Partially healed nonsegmental left 6th through 9th rib fractures. Otherwise chronic findings as noted. Dictated and Authenticated by: Cheng Ignacio MD. Orderin Ramiro Hart MD
--- NOTE | 2024-06-27 22:30 | DI.VRAD_ITS ---
PROCEDURE INFORMATION: Exam: XR Right Shoulder Exam date and time: 06/27/2024 9:07 PM Age: 63 years old Clinical indication: Injury or trauma; Fall; Blunt trauma (contusions or hematomas); Right; Shoulder injury TECHNIQUE: Imaging protocol: Radiologic exam of the right shoulder. Views: 2 or more views. COMPARISON: CT CHEST WO 06/27/2024 9:00 PM FINDINGS: Bones/joints: Osseous alignment is normal. No acute fracture. No significant arthritic changes. Soft tissues: Soft tissue swelling noted superficial to the acromion. IMPRESSION: No acute osseous abnormality Dictated and Authenticated by: Cheng Ignacio MD. Orderin Ramiro Hart MD
[2024-06-27 22:52] LABS: Anion Gap 5.7 mmol/L (3-11); BUN 29 mg/dL (7-18); CO2 31.3 mmol/L (21.0-32.0); CREATININE 2.2 mg/dL (0.55-1.02); Calcium 8.7 mg/dL (8.5-10.1); Chloride 83 mmol/L (98-107); Estimated GFR 24.27 (mL/min/1.73m2); Glucose 397 mg/dL (74-106); Potassium 3.8 mmol/L (3.5-5.1)
[2024-06-27 22:55] LABS: Sodium 120 mmol/L (136-145)
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
[2024-06-28] VITALS (17 sets, daily range): BP systolic 120–205; BP diastolic 58–67; PULSE 56–70; RESP 14–20; TEMP 36.9–37.4; O2SAT 88–100
--- NOTE | 2024-06-28 00:31 | W.PC.ACHO ---
Registration Status: Primary Language: Preferred Language: ED Information & Data Chief Complaint GenMedical 06/27/24 22:32 Triage Note Pt reports very low sodium, 06/27/24 19:16 Na 119, on labs today with PCP. Pt reports weak legs, dizzy, nearly falling down. Denies CP and SOB, states her doctor told her there is fluid around her lungs. Medical / Surgical History (Last Reviewed 06/27/24 @ 23:53 by Rambo Schneider MD) Heart failure with recovered ejection fraction (HFrecEF) Infected animal bite of lower leg Struck by pig, initial encounter Pulmonary granuloma COPD (chronic obstructive pulmonary disease) Carotid stenosis CAD (coronary artery disease) CKD (chronic kidney disease) stage 4, GFR 15-29 ml/min Chronic renal insufficiency Hx of malignant melanoma Diabetes mellitus type 1 Hypothyroidism Hyperlipidemia Benign hypertension Posterior cerebral circulation hemorrhagic infarction Hx MRSA infection (Last Reviewed 06/27/24 @ 23:53 by Rambo Schneider MD) History of incision and drainage (~09/2022) S/P cardiac cath Hx of removal of cyst (~07/20/21) excision of melanoma on arm. Trigger Finger release (03/29/11) Stent placement Oophrectomy, Both Abdominal hysterectomy (~2001) Carotid endarterectomy Most Recent Vital Signs Temperature 36.7 C 06/27/24 19:16 Temperature Source Oral 06/27/24 19:16 Pulse 59 L 06/27/24 23:01 Pulse 68 06/27/24 21:47 Respiratory Rate 12 06/27/24 23:01 Respiratory Effort Normal 06/27/24 19:29 Respiratory Depth Normal 06/27/24 19:29 Respiratory Pattern Normal 06/27/24 19:29 Blood Pressure 162/59 H 06/27/24 23:01 Blood Pressure Mean 124 06/27/24 21:47 Blood Pressure Position Sitting 06/27/24 19:16 Pulse Oximetry 90 L 06/27/24 22:01 Oxygen Delivery Method Room Air 06/27/24 19:16 Oxygen Flow Rate 0 06/27/24 19:16 Pain Level 0 06/27/24 19:16 Allergies Sulfa (Sulfonamide Antibiotics) Allergy (Severe, Verified 06/27/24 19:19) RENAL FAILURE sulfamethoxazole (From Bactrim) Allergy (Severe, Verified 06/27/24 19:19) renal failure Penicillins Allergy (Unknown, Verified 06/27/24 19:19) Other (See Comment) unsure, since childhood trimethoprim (From Bactrim) Allergy (Verified 06/27/24 19:19) Other (See Comment) renal failure Precautions Isolation Standard precaution 06/27/24 19:20 IV IV Catheter Type [Right Saline Lock Forearm] IV Catheter Gauge [Right 18 Forearm] Diagnostics 06/28/24 06/27/24 06/27/24 Range/Units 05:35 22:34 20:39 WBC Pending 5.96 (4.4-10.8) 10^3/uL RBC Pending 3.59 L (3.93-5.22) 10^6/uL Hgb Pending 11.7 (11.2-15.7) g/dL Hct Pending 33.0 L (36.0-46.0) % MCV Pending 92 (80-95) fL MCH Pending 32.6 (27.0-33.0) pg MCHC Pending 35.5 (32.0-36.0) % RDW Pending 12.4 (11.7-14.6) % Plt Count Pending 251 (130-400) 10^3/uL MPV Pending 9.4 (8.0-11.0) fL Immature Gran % Pending 0.3 % Neutrophils % Pending 86.1 % Lymphocytes % Pending 7.9 % Monocytes % Pending 5.2 % Eosinophils % Pending 0.2 % Basophils % Pending 0.3 % Nucleated RBC % 0.0 (0.0-0.3) % Absolute Neutrophils Pending 5.13 (1.2-6.7) 10^3/uL Absolute Lymphocytes Pending 0.47 L (1.2-3.4) 10^3/uL Absolute Monocytes Pending 0.31 (0.1-0.8) 10^3/uL Absolute Eosinophils Pending 0.01 (0.0-0.7) 10^3/uL Absolute Basophils Pending 0.02 (0.0-0.2) 10^3/uL PT 10.4 (9.1-11.1) sec INR 1.0 (0.9-1.1) VBG pH 7.38 (7.31-7.41) VBG pCO2 53 H (41-51) mmHg VBG pO2 25 mmHg VBG HCO3 31 H (23-28) mmol/L VBG Total CO2 29 (24-29) mmol/L VBG O2 Saturation 50 % VBG Base Excess 6 H (-2-3) mmol/L Sodium 120 L* 117 L* (136-145) mmol/L Potassium 3.8 4.4 (3.5-5.1) mmol/L Chloride 83 L 80 L (98-107) mmol/L Carbon Dioxide 31.3 30.9 (21.0-32.0) mmol/L Anion Gap 5.7 6.1 (3-11) mmol/L BUN 29 H 28 H (7-18) mg/dL Creatinine 2.2 H 2.2 H (0.55-1.02) mg/dL Est GFR (CKD-EPI 2020) 24.27 24.27 (mL/min/1.73m2) Glucose 397 H 404 H (74-106) mg/dL Calcium 8.7 9.0 (8.5-10.1) mg/dL Magnesium 2.3 (1.8-2.4) mg/dL Total Bilirubin 1.5 H (0.2-1.0) mg/dL AST 27 (15-37) U/L ALT 31 (14-59) U/L Alkaline Phosphatase 119 H (46-116) U/L Total Protein 6.7 (6.4-8.2) g/dL Albumin 3.5 (3.4-5.0) g/dL TSH 2.33 (0.36-3.74) uIU/mL Urine Color (Yellow) Urine Clarity (Clear) Urine pH (5-8) Ur Specific [place] (1.005-1.025) Urine Protein (Neg-Trace) mg/dL Urine Ketones (Negative) mg/dL Urine Blood (Negative) Urine Nitrite (Negative) Urine Bilirubin (Negative) Urine Urobilinogen (Up to 0.2) mg/dL Ur Leukocyte Esterase (Negative) Urine RBC (0-2) HPF Urine WBC (0-5) HPF Ur Epithelial Cells (Negative) HPF Urine Crystals (Negative) HPF Urine Bacteria (Negative) HPF Urine Casts (Negative) LPF Urine Mucus (Negative) Ur Culture Indicated? Urine Glucose (Negative) mg/dL 06/27/24 Range/Units 20:20 WBC (4.4-10.8) 10^3/uL RBC (3.93-5.22) 10^6/uL Hgb (11.2-15.7) g/dL Hct (36.0-46.0) % MCV (80-95) fL MCH (27.0-33.0) pg MCHC (32.0-36.0) % RDW (11.7-14.6) % Plt Count (130-400) 10^3/uL MPV (8.0-11.0) fL Immature Gran % % Neutrophils % % Lymphocytes % % Monocytes % % Eosinophils % % Basophils % % Nucleated RBC % (0.0-0.3) % Absolute Neutrophils (1.2-6.7) 10^3/uL Absolute Lymphocytes (1.2-3.4) 10^3/uL Absolute Monocytes (0.1-0.8) 10^3/uL Absolute Eosinophils (0.0-0.7) 10^3/uL Absolute Basophils (0.0-0.2) 10^3/uL PT (9.1-11.1) sec INR (0.9-1.1) VBG pH (7.31-7.41) VBG pCO2 (41-51) mmHg VBG pO2 mmHg VBG HCO3 (23-28) mmol/L VBG Total CO2 (24-29) mmol/L VBG O2 Saturation % VBG Base Excess (-2-3) mmol/L Sodium (136-145) mmol/L Potassium (3.5-5.1) mmol/L Chloride (98-107) mmol/L Carbon Dioxide (21.0-32.0) mmol/L Anion Gap (3-11) mmol/L BUN (7-18) mg/dL Creatinine (0.55-1.02) mg/dL Est GFR (CKD-EPI 2020) (mL/min/1.73m2) Glucose (74-106) mg/dL Calcium (8.5-10.1) mg/dL Magnesium (1.8-2.4) mg/dL Total Bilirubin (0.2-1.0) mg/dL AST (15-37) U/L ALT (14-59) U/L Alkaline Phosphatase (46-116) U/L Total Protein (6.4-8.2) g/dL Albumin (3.4-5.0) g/dL TSH (0.36-3.74) uIU/mL Urine Color Yellow (Yellow) Urine Clarity Clear (Clear) Urine pH 7.0 (5-8) Ur Specific [place] 1.015 (1.005-1.025) Urine Protein >=300 H (Neg-Trace) mg/dL Urine Ketones Trace H (Negative) mg/dL Urine Blood Moderate H (Negative) Urine Nitrite Negative (Negative) Urine Bilirubin Negative (Negative) Urine Urobilinogen 0.2 (Up to 0.2) mg/dL Ur Leukocyte Esterase Negative (Negative) Urine RBC 10-20 H (0-2) HPF Urine WBC Negative (0-5) HPF Ur Epithelial Cells Few (Negative) HPF Urine Crystals Negative (Negative) HPF Urine Bacteria Few (Negative) HPF Urine Casts Negative (Negative) LPF Urine Mucus Negative (Negative) Ur Culture Indicated? No Urine Glucose 250 H (Negative) mg/dL [id number] Documentation Fingerstick Glucose Start: 06/27/24 21:32 Freq: Status: Active Protocol: Activity Type Activity Date Activity User E-sign Co-sign Detail Recorded Client Recorded Date Recorded By Document 06/27/24 22:31 BKG DAEMON(3) [id number] 06/27/24 22:31 BKG DAEMON(4) Intake and Output - 24 Hour Total 06/27/24 19:15 thru 06/27/24 19:16 Weight 67.132 kg Falls Risk Assessment History of Falls No History 06/27/24 19:29 Contributing Factors No Factors 06/27/24 19:29 Ambulatory Aids Independent 06/27/24 19:29 Tubes/Lines None 06/27/24 19:29 Gait Evaluation No gait disturbance 06/27/24 19:29 Cognition No cognitive impairment 06/27/24 19:29 Fall Total Score 0 06/27/24 19:29 Level of Risk Standard/Low Risk 06/27/24 19:29 Problems (Last Reviewed 06/27/24 @ 23:53 by Rambo Schneider MD) Traumatic ecchymosis of chest (Acute) Acute hyperglycemia (Acute) Hyponatremia (Acute) v v v v v v v v v Sending and/or Receiving Nurses: Please use comment section below to note any information pertinent to the patient hand-off not included above. Information / Comments: Report taken from HOSPITAL SUPERVISOR Adrien, patient is alert and oriented, brought to ER per her provided advised due to low Sodium. Has hx of CHF, received lasix, has 2 stents in placed. Also with insulin pump but not using it, defective! Has also history of old fracture but healing well (C2 fx) . LS good. Bruises on back and left ewing. Echo reads as 30% EF. All questions asked answered appropriately. Report received from:
[2024-06-28] MEDS: Insulin Glargine 300 UNITS/3 ML PEN SC ×2 (01:33→20:14)
[2024-06-28] MEDS: Levothyroxine 175 MCG TAB PO (06:05)
[2024-06-28 07:05] LABS: Abs Immature Grans 0.01 10^3/uL (0.0-0.06); Absolute Basophil Count 0.02 10^3/uL (0.0-0.2); Absolute Eosinophil Count 0.04 10^3/uL (0.0-0.7); Absolute Lymphocyte Count 1.11 10^3/uL (1.2-3.4); Absolute Monocyte Count 0.49 10^3/uL (0.1-0.8); Absolute Neutrophil Count 3.22 10^3/uL (1.2-6.7); Basophils % 0.4 %; Eosinophils % 0.8 %; HCT 28.1 % (36.0-46.0); HGB 10.3 g/dL (11.2-15.7); Immature Grans % 0.2 %; Lymphocytes % 22.7 %; MCH 32.9 pg (27.0-33.0); MCHC 36.7 % (32.0-36.0); MCV 90 fL (80-95); MPV 9.6 fL (8.0-11.0); Neutrophils % 65.9 %; Platelet Count 231 10^3/uL (130-400); RBC 3.13 10^6/uL (3.93-5.22); RDW 12.5 % (11.7-14.6); RDW-SD 40.8 fL; WBC 4.89 10^3/uL (4.4-10.8)
[2024-06-28 07:27] LABS: Hemoglobin A1C 8.5 % (<5.7)
[2024-06-28 07:30] LABS: BUN 29 mg/dL (7-18); Calcium 8.7 mg/dL (8.5-10.1); Chloride 86 mmol/L (98-107); Estimated GFR 27.21 (mL/min/1.73m2); Glucose 142 mg/dL (74-106); Potassium 3.7 mmol/L (3.5-5.1)
[2024-06-28 07:33] LABS: Sodium 123 mmol/L (136-145)
[2024-06-28] MEDS: Pantoprazole 40 MG TABCR PO ×2 (08:13→20:11)
[2024-06-28] MEDS: Aspirin E.C. 81 MG TABEC PO (08:13)
[2024-06-28] MEDS: Ferrous Gluconate 324 MG TAB PO (08:13)
[2024-06-28] MEDS: Sacubitril/Valsartan 24 mg/26 mg TAB 1 EACH PO ×2 (08:13→20:10)
[2024-06-28] MEDS: Apixaban 5 MG TAB PO ×2 (08:13→20:11)
[2024-06-28] MEDS: Clopidogrel 75 MG TAB PO (08:13)
[2024-06-28] MEDS: Cholecalciferol (Vitamin D3) 1,000 UNIT TAB 1000 UNITS PO (08:13)
[2024-06-28] MEDS: Carvedilol 12.5 MG TAB PO ×2 (08:13→20:11)
[2024-06-28] MEDS: amLODIPine 5 MG TAB PO (08:14)
[2024-06-28] MEDS: Insulin Aspart 300 UNITS/3 ML PEN SC ×3 (08:14→16:48)
[2024-06-28] MEDS: Furosemide 20 MG TAB PO (08:14)
[2024-06-28] MEDS: Normal Saline Flush 10 ML SYR IVP (08:16)
--- NOTE | 2024-06-28 09:05 | W.PM.PROGNOT ---
Date of Service Date of service: 06/28/24 Time of Service: 09:17 Assessment and Plan Assessment and plan (1) Hyponatremia: Status: Acute Assessment and plan: -Multiple presentation for hyponatremia usually treated with IVF, no found etiology - On NS IVF -Rx review and dose adjustement -Spoke w PCP Dr. Yu and discuss cosyntropin testing -Cosyntropin testing on 06/29 - Serial BMP- Na 124 from 120 -BMP in AM (2) Acute hyperglycemia: Status: Acute Assessment and plan: Fingersticks AC and HS home dose lantus and SSI coverage ( unaware that she was d/c on Lantus when d/c in 06/14/24) A1C 8.5 (3) Heart failure with recovered ejection fraction (HFrecEF): Assessment and plan: Last echocardiogram showed an EF of 30%. No signs of exacerbation but Hx of Continue Entresto Lasix on hold- given today continue to monitor for evidence of fluid overload while treating her hyponatremia. (4) COPD (chronic obstructive pulmonary disease): Assessment and plan: No exacerbation (5) CAD (coronary artery disease): Assessment and plan: History of heart failure with reduced ejection fraction. Continue entresto, coreg, lasix on hold will revaluate in AM (6) CKD (chronic kidney disease) stage 4, GFR 15-29 ml/min: Assessment and plan: Creatinine 2.1 around her baseline of around 2.0. IV fluids were delayed but resumed (7) Diabetes mellitus type 1: Assessment and plan: conservation educator consult ordered with Type 1 diabetes with some deficit in knowledge of her insulin regimen. Insulin pump pending Discuss with PCP the need for sales review clerk f/u Discussed with Dr. Gallo. Subjective Subjective Patient reports: no new complaints, tolerating liquids well, tolerating a regular diet, voiding w/o difficulty and flatus; denies diarrhea, nausea, vomiting, shortness of breath or fever Exam Narrative Exam Narrative: Constitutional The patient is without acute distress Neuro:alert and oriented to self, person, place, time and situation. No neurological focal deficit Chest:Chest is symmetrical and normal appearance Resp:Unlabored breathing, clear lung bilaterally Cardio: regular rhythm, S1, S2, no murmur GI: Abdomen is not distended, soft and non tender, bowel sounds are present : Negative Costovertebral angle tenderness Extremities: strength 5/5 to bilateral lower and upper extremities Psych: RASS 0, congruent mood and normal affect. Objective Last Vital Signs Temp 37.3 C 06/28/24 07:49 Pulse 62 06/28/24 07:49 Resp 18 06/28/24 07:49 BP 175/59 H 06/28/24 07:49 Pulse Ox 92 06/28/24 07:49 Laboratory Results - last 24 hr 06/27/24 06/27/24 06/27/24 20:20 20:39 22:34 WBC 5.96 RBC 3.59 L Hgb 11.7 Hct 33.0 L MCV 92 MCH 32.6 MCHC 35.5 RDW 12.4 Plt Count 251 MPV 9.4 Immature Gran % 0.3 Neutrophils % 86.1 Lymphocytes % 7.9 Monocytes % 5.2 Eosinophils % 0.2 Basophils % 0.3 Nucleated RBC % 0.0 Absolute Neutrophils 5.13 Absolute Lymphocytes 0.47 L Absolute Monocytes 0.31 Absolute Eosinophils 0.01 Absolute Basophils 0.02 PT 10.4 INR 1.0 VBG pH 7.38 VBG pCO2 53 H VBG pO2 25 VBG HCO3 31 H VBG Total CO2 29 VBG O2 Saturation 50 VBG Base Excess 6 H Sodium 117 L* 120 L* Potassium 4.4 3.8 Chloride 80 L 83 L Carbon Dioxide 30.9 31.3 Anion Gap 6.1 5.7 BUN 28 H 29 H Creatinine 2.2 H 2.2 H Est GFR (CKD-EPI 2020) 24.27 24.27 Glucose 404 H 397 H Hemoglobin A1c Calcium 9.0 8.7 Magnesium 2.3 Total Bilirubin 1.5 H AST 27 ALT 31 Alkaline Phosphatase 119 H Total Protein 6.7 Albumin 3.5 TSH 2.33 Urine Color Yellow Urine Clarity Clear Urine pH 7.0 Ur Specific [place] 1.015 Urine Protein >=300 H Urine Ketones Trace H Urine Blood Moderate H Urine Nitrite Negative Urine Bilirubin Negative Urine Urobilinogen 0.2 Ur Leukocyte Esterase Negative Urine RBC 10-20 H Urine WBC Negative Ur Epithelial Cells Few Urine Crystals Negative Urine Bacteria Few Urine Casts Negative Urine Mucus Negative Ur Culture Indicated? No Urine Glucose 250 H 06/28/24 06:42 WBC 4.89 RBC 3.13 L Hgb 10.3 L Hct 28.1 L MCV 90 MCH 32.9 MCHC 36.7 H RDW 12.5 Plt Count 231 MPV 9.6 Immature Gran % 0.2 Neutrophils % 65.9 Lymphocytes % 22.7 Monocytes % 10.0 Eosinophils % 0.8 Basophils % 0.4 Nucleated RBC % 0.0 Absolute Neutrophils 3.22 Absolute Lymphocytes 1.11 L Absolute Monocytes 0.49 Absolute Eosinophils 0.04 Absolute Basophils 0.02 PT INR VBG pH VBG pCO2 VBG pO2 VBG HCO3 VBG Total CO2 VBG O2 Saturation VBG Base Excess Sodium 123 L* Potassium 3.7 Chloride 86 L Carbon Dioxide 34.0 H Anion Gap 3.0 BUN 29 H Creatinine 2.0 H Est GFR (CKD-EPI 2020) 27.21 Glucose 142 H Hemoglobin A1c 8.5 H Calcium 8.7 Magnesium Total Bilirubin AST ALT Alkaline Phosphatase Total Protein Albumin TSH Urine Color Urine Clarity Urine pH Ur Specific [place] Urine Protein Urine Ketones Urine Blood Urine Nitrite Urine Bilirubin Urine Urobilinogen Ur Leukocyte Esterase Urine RBC Urine WBC Ur Epithelial Cells Urine Crystals Urine Bacteria Urine Casts Urine Mucus Ur Culture Indicated? Urine Glucose PAWSS Have you Been Recently Intoxicated or Drunk Within the Last 30 days?: No Have you Ever Experienced Previous Episodes of Alcohol Withdrawal?: No Have you ever Experienced Withdrawal Seizures?: No Have you ever Experienced Delirium Tremens(DT)s?: No Have you ever undergone Alcohol Rehabilitation Treatment (i.e, inpt ot outpatient treatment programs)?: No Have you ever Experienced Blackouts?: No Have you ever Combined Alcohol with other Downers within the last 90 days?: No Have you ever Combined Alcohol with any other Substance of Abuse during the last 90 days?: No Positive Blood Alcohol level on Presentation? [PCS.BAL]: No Evidence of Increased Autonomic Activity (i.e. HR>120, tremor, sweating, agitation, nausea)?: No Result: 0 Time Spent with Patient Time Spent with Patient: >50 minutes Time was spent: preparing to see the patient(eg.review tests), obtaining and/or reviewing separately otained hiistory, ordering medications,tests, procedures, referring, communicating with other health health care facility administrator, indepentently interpreting results, counseling the patient and care coordination
[2024-06-28] MEDS: Rosuvastatin 10 MG TAB PO (09:19)
[2024-06-28 10:33] LABS: BUN 28 mg/dL (7-18); Calcium 8.6 mg/dL (8.5-10.1); Chloride 84 mmol/L (98-107); Estimated GFR 27.21 (mL/min/1.73m2); Glucose 269 mg/dL (74-106); Potassium 3.9 mmol/L (3.5-5.1)
[2024-06-28 10:36] LABS: Sodium 120 mmol/L (136-145)
[2024-06-28] MEDS: Normal Saline 1,000 ML 75 ML IV (12:38)
--- NOTE | 2024-06-28 15:38 | CHAPLAIN ---
Casandra was sitting up in bed when I visited. Shew as pleasant and easily engaged in conversation. She was here about two weeks ago. She lives in [facility], but talked about growing up in [place] and taking vegetables and baked goods to the [employer]. I explained my role and offered support.
[2024-06-28 15:52] LABS: Anion Gap 4.8 mmol/L (3-11); BUN 30 mg/dL (7-18); CO2 33.2 mmol/L (21.0-32.0); CREATININE 2.1 mg/dL (0.55-1.02); Calcium 8.6 mg/dL (8.5-10.1); Chloride 86 mmol/L (98-107); Estimated GFR 25.67 (mL/min/1.73m2); Glucose 239 mg/dL (74-106); Potassium 3.9 mmol/L (3.5-5.1)
[2024-06-28 15:54] LABS: Sodium 124 mmol/L (136-145)
--- NOTE | 2024-06-28 17:45 | INITIAL_ITS ---
Date of service: 06/28/24 Time of Service: 17:46 Care Management Initial Assmt Initial Assessment Reason for Hospitalization: Hyponatremia Functional Status/Living Situation Patient Presentation: Casandra was sitting up in bed when CM met with her. She was pleasant in interaction and easily engaged with CM known to her from a previous admission. Casandra was admitted with hyponatremia, which is a chronic issue for her. Her Sodium on admission was 117 and she has had dizziness and weakness associated with it. Casandra is also a Type I diabetic who has an insulin pump. Unfortunately her insulin pump is malfunctioning and she is waiting for a replacement. Per the provider she appears to have some knowledge deficits regarding her diabetes and a consult for Diabetic education has been placed. Casandra lives in a duplex in [facility] that she and her daughter used to own. She shared that when they sold it she was given life time residency rights. 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 Casandra also has 2 children who live locally and are very supportive. She is independent at baseline and does not receive any community services. Town of Residence: 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) Instrumental Activities of Daily Living (ADLs): Independent Medications Medication Management: No Issues/Barriers identified Physical Functioning/Mobility Assistive Device: none Advance Directives Advance Directives: Do you have an Advance Directive: N 05/21/24 14:59 AD On File at [facility]: N 11/17/22 11:47 Date Asked 06/27/24 06/27/24 15:38 AD Date Reviewed COLST On File at [facility] No 06/13/24 21:38 COLST Date Scanned Code Status Resuscitation Status Full Code Portal Pt does not currently have a portal and education provided: Yes Insurance Coverage/Financial Issues Insurance: [employer] [place] Care Team Visit Care Team Role Provider Type Shirley Yu MD Primary Care Provider [facility] STAFF PHYSICIAN Adriana Mcclelland RDN, CDCES Other Providers RETAIL BRAND AMBASSADOR Moose Shah RDN Other Providers RETAIL BRAND AMBASSADOR GENTRY [facility] Provider PHYSICIANS EQUIPMENT OR MACHINERY CLEANER Rambo Schneider MD Admit Provider [facility] STAFF PHYSICIAN Attending Provider Discharge Potential Discharge Needs: PCP F/U Appt Anticipated Barriers to Discharge: None Identified Patient/Family Education Needs: Review discharge instructions, discuss Ask Me Three Transportation: Private vehicle Plan: Anticipate Casandra will be discharged home with no new services. She will follow up with her PCP and plan of care and transport with family. CM will follow and continue to assess for discharge needs. Social Determinants of Health Screening Social Determinants of Health last assessed: 06/28/24 Will the Patient Participate in the Screening?: Yes Do you worry about having a steady place to live?: no Problems where you live: no known problems In the past 12 months, have you had to go without electric, gas, oil or water in your home?: no Have you or anyone in your house had to go without enough food to eat?: no Has lack of transportation kept you from medical appointments or from doing things needed for daily living?: no Has anyone in your life made you feel unsafe or unsupported?: no How hard is it for you to pay for the very basics like food, housing, medical care, and heating? Would you say it is:: Not hard at all Do you want help finding or keeping work or a job?: I do not need or want help If for any reason you need help with day-to-day activities such as bathing, preparing meals, shopping, managing finances, etc., do you get the help you need?: I don?t need any help How often do you feel lonely or isolated from those around you?: Never Do you speak a language other than [place] at home?: Yes Does the patient want assistance with any of the above?: No Health Related Social Needs Health related social needs: education (Z55.6) PFSH All Active Problems Traumatic ecchymosis of chest (Acute) Acute hyperglycemia (Acute) Anemia in CKD (chronic kidney disease) (Acute) Hyponatremia (Acute) HCAP (healthcare-associated pneumonia) (Acute) Closed fracture of left proximal humerus (Acute 06/18/23) Abnormal ankle brachial index (Acute) Concussion (Acute) Ganglion of left wrist (Acute) S/P Excision: 07/30/2021 Cyst (Acute) Right shoulder PAD (peripheral artery disease) (Acute) Infected sebaceous cyst of skin (Acute) Former smoker (Acute) 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 (Acute) COVID-19 (Acute) 05/2021 Sebaceous cyst (Acute) Contusion of left knee (Acute) Leg wound, left (Acute) Medical History Heart failure with recovered ejection fraction (HFrecEF) Infected animal bite of lower leg Struck by pig, initial encounter Pulmonary granuloma RLL Wedge Resection 06/2017 COPD (chronic obstructive pulmonary disease) Carotid stenosis CAD (coronary artery disease) CKD (chronic kidney disease) stage 4, GFR 15-29 ml/min Chronic renal insufficiency Hx of malignant melanoma Diabetes mellitus type 1 Pump in situ per [facility] note Hypothyroidism Hyperlipidemia Benign hypertension 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 Surgical History History of incision and drainage (~09/2022) left lower leg I&D after laceration S/P cardiac cath stent placed 4 month ago Hx of removal of cyst (~07/20/21) upper left chest back excision of melanoma on arm. Trigger Finger release (03/29/11) LEFT THUMB Stent placement LE for intermittent claudication Oophrectomy, Both Abdominal hysterectomy (~2001) Carotid endarterectomy bilateral. Social History Smoking/Tobacco Use Status: Current every day Tobacco Type: cigarettes Smoking risk assessment performed?: Yes Alcohol Intake: current Alcohol Intake frequency: a few times a week Alcohol type: hard liquor Drug use: Never Substance use type: does not use Housing: house Current gender identity: female Do you feel safe at home: Yes Do you feel safe in your relationship?: Yes Readmission Within the Past 30 Days Yes or No: Yes Date of First Admission Date of 1st Admission: 06/13/24 Date of this Admission Date of Admission: 06/27/24 This admission was: Through ED Office Visit Since 1st Admission Have you seen your PCP in the office since discharge?: Yes Assessment for Readmission Summary of readmission circumstances, based upon interviews: Casandra was readmitted with hyponatremia and hyperglycemia. The hyponatremia is chronic and no cause has been found. Casandra informed that she is going to have some special testing done this weekend to hopefully get some answers. Casandra is a Type I diabetic with an insulin pump. Unfortunately her pump is broken and a new one has been ordered. A knowledge deficit regarding diabetes has been identified and Diabetic ree-education has been ordered.
[2024-06-28 18:46] LABS: Anion Gap 3.6 mmol/L (3-11); BUN 32 mg/dL (7-18); CO2 33.4 mmol/L (21.0-32.0); CREATININE 2.2 mg/dL (0.55-1.02); Calcium 8.4 mg/dL (8.5-10.1); Chloride 85 mmol/L (98-107); Estimated GFR 24.27 (mL/min/1.73m2); Glucose 354 mg/dL (74-106); Potassium 3.6 mmol/L (3.5-5.1)
[2024-06-28 18:51] LABS: Sodium 122 mmol/L (136-145)
[2024-06-28] MEDS: Magnesium Oxide 400 MG TAB PO (20:11)
[2024-06-28] MEDS: Citalopram 20 MG TAB PO (20:17)
[2024-06-28] MEDS: Calcium Carbonate *TUMS* 500 MG CHEW 1000 MG PO (20:34)
[2024-06-28 20:47] LABS: Glucose 398 mg/dL (74-106)
[2024-06-28] MEDS: LORazepam 1 MG TAB PO (22:09)
[2024-06-29] MEDS: Normal Saline 1,000 ML 75 ML IV (01:36)
[2024-06-29] MEDS: Levothyroxine 175 MCG TAB PO (06:43)
[2024-06-29 07:32] VITALS: BP 112/62; PULSE 60; RESP 18; TEMP 36.2; O2SAT 92
[2024-06-29] MEDS: Cosyntropin 0.25 MG VIAL IVP (07:56)
[2024-06-29] MEDS: Normal Saline 10 ML VIAL IJ (07:57)
[2024-06-29] MEDS: Cholecalciferol (Vitamin D3) 1,000 UNIT TAB 1000 UNITS PO (08:01)
[2024-06-29] MEDS: Rosuvastatin 10 MG TAB PO (08:01)
[2024-06-29] MEDS: Sacubitril/Valsartan 24 mg/26 mg TAB 1 EACH PO ×2 (08:01→19:46)
[2024-06-29] MEDS: Aspirin E.C. 81 MG TABEC PO (08:01)
[2024-06-29] MEDS: Ferrous Gluconate 324 MG TAB PO (08:02)
[2024-06-29] MEDS: Pantoprazole 40 MG TABCR PO ×2 (08:02→19:46)
[2024-06-29] MEDS: amLODIPine 5 MG TAB PO (08:02)
[2024-06-29] MEDS: Clopidogrel 75 MG TAB PO (08:03)
[2024-06-29] MEDS: Carvedilol 12.5 MG TAB PO ×2 (08:03→19:46)
[2024-06-29] MEDS: Insulin Aspart 300 UNITS/3 ML PEN SC ×5 (08:04→21:21)
[2024-06-29] MEDS: Apixaban 5 MG TAB PO ×2 (08:04→19:46)
[2024-06-29] MEDS: Normal Saline Flush 10 ML SYR IVP ×2 (08:04→19:47)
[2024-06-29 09:02] LABS: Anion Gap 5.5 mmol/L (3-11); BUN 26 mg/dL (7-18); CO2 34.5 mmol/L (21.0-32.0); CREATININE 1.8 mg/dL (0.55-1.02); Calcium 8.8 mg/dL (8.5-10.1); Chloride 91 mmol/L (98-107); Estimated GFR 30.88 (mL/min/1.73m2); Glucose 172 mg/dL (74-106); Potassium 3.5 mmol/L (3.5-5.1); Sodium 131 mmol/L (136-145)
[2024-06-29 10:45] VITALS: BP 121/61; PULSE 60; RESP 16; TEMP 36.6; O2SAT 98
--- NOTE | 2024-06-29 12:25 | W.PM.PROGNOT ---
Date of Service Date of service: 06/29/24 Time of Service: 12:35 Assessment and Plan Assessment and plan (1) Hyponatremia: Status: Acute Assessment and plan: -Multiple presentation for hyponatremia usually treated with IVF, no found etiology Urine Na was 43 with Urine Osmo 179 and d/t previous values during admit on 06/13 was d/t have cosyntropin testing-TSH was normal -Na 131 today -D/c NS IVF -Rx review and dose adjustement completed 06/28 -As per discussion w PCP Dr. Yu completed Cosyntropin testing and results pending - H2O restriction -BMP in AM (2) Acute hyperglycemia: Status: Acute Assessment and plan: Continue fingersticks AC and HS Glucs 143 to 406 home dose lantus increased to 15 units and SSI coverage moderate scale in addition to meal coverage at 1unit / 15 carbs ( unaware that she was d/c on Lantus when d/c'ed on 06/14/24) A1C 8.5 (3) Heart failure with recovered ejection fraction (HFrecEF): Assessment and plan: Previous echocardiogram showed an EF of 30%. No signs of exacerbation On home dose Entresto Lasix resumed Ongoing monitoring for evidence of fluid overload while treating her hyponatremia. (4) COPD (chronic obstructive pulmonary disease): Assessment and plan: No exacerbation - On PRN nebs will continue to monitor (5) CAD (coronary artery disease): Assessment and plan: History of heart failure with reduced ejection fraction. On chronic meds entresto, coreg, and lasix was resumed (6) CKD (chronic kidney disease) stage 4, GFR 15-29 ml/min: Assessment and plan: Creatinine 1.8 now- baseline of around 2.0. IV fluids stopped (7) Diabetes mellitus type 1: Assessment and plan: Ongoing breastfeeding educator consult pending for with Type 1 diabetes with some deficit in knowledge of her insulin regimen. Insulin pump pending Discussed with patient : conversation with PCP re: need for salesperson fashion accessories f/u Discussed with Dr. Gallo. Subjective Subjective Patient reports: no new complaints, feels better, tolerating liquids well, tolerating a regular diet, voiding w/o difficulty, flatus and other (Reports ETOH use at home weekly); denies diarrhea, nausea, vomiting, shortness of breath or fever Exam Narrative Exam Narrative: Constitutional The patient is without acute distress, multiple bruises from falls at home Neuro:alert and oriented X4 , non focal Resp:Unlabored breathing, clear lung bilaterally Cardio: regular rhythm, S1, S2, no murmur GI: Abdomen is not distended, soft and non tender, bowel sounds are present : Negative Costovertebral angle tenderness Extremities: strength 5/5 to bilateral lower and upper extremities Psych: RASS 0, congruent mood and normal affect. Objective Last Vital Signs Temp 36.6 C 06/29/24 10:45 Pulse 60 06/29/24 10:45 Resp 16 06/29/24 10:45 BP 121/61 06/29/24 10:45 Pulse Ox 98 06/29/24 10:45 Laboratory Results - last 24 hr 06/28/24 06/28/24 06/28/24 15:14 18:00 20:15 Sodium 124 L* 122 L* Potassium 3.9 3.6 Chloride 86 L 85 L Carbon Dioxide 33.2 H 33.4 H Anion Gap 4.8 3.6 BUN 30 H 32 H Creatinine 2.1 H 2.2 H Est GFR (CKD-EPI 2020) 25.67 24.27 Glucose 239 H 354 H 398 H Calcium 8.6 8.4 L 06/29/24 08:35 Sodium 131 L D Potassium 3.5 Chloride 91 L Carbon Dioxide 34.5 H Anion Gap 5.5 BUN 26 H Creatinine 1.8 H Est GFR (CKD-EPI 2020) 30.88 Glucose 172 H Calcium 8.8 PAWSS Have you Been Recently Intoxicated or Drunk Within the Last 30 days?: No Have you Ever Experienced Previous Episodes of Alcohol Withdrawal?: No Have you ever Experienced Withdrawal Seizures?: No Have you ever Experienced Delirium Tremens(DT)s?: No Have you ever undergone Alcohol Rehabilitation Treatment (i.e, inpt ot outpatient treatment programs)?: No Have you ever Experienced Blackouts?: No Have you ever Combined Alcohol with other Downers within the last 90 days?: No Have you ever Combined Alcohol with any other Substance of Abuse during the last 90 days?: No Positive Blood Alcohol level on Presentation? [PCS.BAL]: No Evidence of Increased Autonomic Activity (i.e. HR>120, tremor, sweating, agitation, nausea)?: No Result: 0 Time Spent with Patient Time Spent with Patient: >50 minutes Time was spent: preparing to see the patient(eg.review tests), obtaining and/or reviewing separately otained hiistory, ordering medications,tests, procedures, referring, communicating with other health manager medicare marketing, indepentently interpreting results, counseling the patient and care coordination
[2024-06-29 14:17] VITALS: BP 102/56; PULSE 60; RESP 16; TEMP 37.2; O2SAT 99
[2024-06-29] MEDS: Furosemide 20 MG TAB PO (15:22)
[2024-06-29 19:40] VITALS: BP 115/53; PULSE 71; RESP 16; TEMP 36.4; O2SAT 95
[2024-06-29] MEDS: Citalopram 20 MG TAB PO (19:46)
[2024-06-29] MEDS: Magnesium Oxide 400 MG TAB PO (19:46)
[2024-06-29] MEDS: Insulin Glargine 300 UNITS/3 ML PEN SC (21:18)
[2024-06-29 22:08] VITALS: BP 161/62; PULSE 61; RESP 16; TEMP 36.6; O2SAT 100
[2024-06-29] MEDS: Acetaminophen 500 MG TAB 1000 MG PO (23:05)
--- NOTE | 2024-06-30 01:54 | NUR.NOTE ---
Patient woke feeling sweaty . Blood sugar 42. Treated with juice . Nursing Note:
--- NOTE | 2024-06-30 02:30 | NUR.NOTE ---
02:15 repeat blood glucose after juice, crackers and peanut butter was 82. So yogurt given.Nursing Note:
[2024-06-30 02:32] VITALS: BP 132/65; PULSE 58; RESP 16; TEMP 36.4; O2SAT 100
--- NOTE | 2024-06-30 02:37 | NUR.NOTE ---
repeat blood glucose 111. now Nursing Note:
[2024-06-30] MEDS: Levothyroxine 175 MCG TAB PO (05:38)
[2024-06-30 07:38] LABS: Anion Gap 3.8 mmol/L (3-11); BUN 29 mg/dL (7-18); CO2 33.2 mmol/L (21.0-32.0); CREATININE 1.7 mg/dL (0.55-1.02); Calcium 8.4 mg/dL (8.5-10.1); Chloride 94 mmol/L (98-107); Estimated GFR 33.07 (mL/min/1.73m2); Glucose 218 mg/dL (74-106); Potassium 4.2 mmol/L (3.5-5.1); Sodium 131 mmol/L (136-145)
[2024-06-30 07:47] VITALS: BP 158/68; PULSE 65; RESP 18; TEMP 36.9; O2SAT 98
[2024-06-30] MEDS: Insulin Aspart 300 UNITS/3 ML PEN SC ×4 (08:15→12:04)
[2024-06-30] MEDS: Normal Saline Flush 10 ML SYR IVP (08:24)
[2024-06-30] MEDS: Cholecalciferol (Vitamin D3) 1,000 UNIT TAB 1000 UNITS PO (08:24)
[2024-06-30] MEDS: Rosuvastatin 10 MG TAB PO (08:24)
[2024-06-30] MEDS: Furosemide 20 MG TAB PO (08:25)
[2024-06-30] MEDS: Apixaban 5 MG TAB PO (08:25)
[2024-06-30] MEDS: Clopidogrel 75 MG TAB PO (08:25)
[2024-06-30] MEDS: Carvedilol 12.5 MG TAB PO (08:25)
[2024-06-30] MEDS: amLODIPine 5 MG TAB PO (08:25)
[2024-06-30] MEDS: Sacubitril/Valsartan 24 mg/26 mg TAB 1 EACH PO (08:25)
[2024-06-30] MEDS: Ferrous Gluconate 324 MG TAB PO (08:25)
[2024-06-30] MEDS: Aspirin E.C. 81 MG TABEC PO (08:25)
[2024-06-30] MEDS: Pantoprazole 40 MG TABCR PO (08:25)
[2024-06-30 12:07] VITALS: BP 149/59; PULSE 62; RESP 14; TEMP 36.4; O2SAT 98
--- NOTE | 2024-06-30 13:28 | DSE_ITS ---
Date of service: 06/30/24 Time of Service: 13:28 DS: Diagnosis Discharge Diagnosis (1) Hyponatremia: Status: Acute (2) Acute hyperglycemia: Status: Acute (3) Heart failure with recovered ejection fraction (HFrecEF): (4) COPD (chronic obstructive pulmonary disease): (5) CAD (coronary artery disease): (6) CKD (chronic kidney disease) stage 4, GFR 15-29 ml/min: (7) Diabetes mellitus type 1: Discharge Plan Disposition Patient Disposition: Home Condition: Improving Discharge Details Reason For Visit: Hyponatremia Admit Date/Time: 06/27/24 23:42 Admit Provider: Rambo Schneider Attending Provider: Rambo Schneider Primary Care Provider: Shirley Yu V Hospital Course Hospital Course: This is a 63-year-old female who was last admitted 2 weeks ago for hyponatremia. She has similar symptoms of dizziness and legs giving out. She has suffered a couple of falls since that time hitting her nose, forehead, right shoulder, left ewing. She was just cleared by [facility] 2 weeks ago from a C 2 fracture 04/18/2024. She is on Eliquis, Plavix, aspirin. In the emergency room she underwent right shoulder films that showed no fracture. Chest abdomen and pelvic CT that shows some emphysematous changes, partially healed fractures of the left 6th through 9th ribs, otherwise unremarkable. Head and neck CT scan that showed the right C2 superior articular facet fracture. The head CT did not show any abnormality. She received 12 units of regular insulin in the ED. Repeat labs showed a serum sodium of 120. She was admitted for treatment of hyponatremia and glucose control. Her sodium improved to 130, blood sugars better controlled, A1C 8.5. she will discuss further testing and follow up labs with PCP. she is feeling better and requesting discharge to home. hemodynamically she is stable. discussed with DR Gallo Home Meds and New Rx's Prescriptions: New insulin glargine [Lantus Solostar U-100 Insulin] 100 unit/mL (3 mL) Insulin Pen 15 unit subcut HS Qty: 0 0RF Continued rosuvastatin 10 mg tablet 10 mg PO DAILY cholecalciferol (vitamin D3) [Vitamin D3] 1,000 UNIT capsule 1,000 unit PO DAILY humalog pump subcut 31/10 albuterol sulfate 90 mcg/actuation HFA aerosol inhaler 2 puff inhalation Q6H PRN citalopram 20 mg tablet 40 mg PO HS clopidogrel 75 mg tablet 75 mg PO DAILY magnesium oxide 250 mg magnesium tablet 500 mg PO QPM ferrous gluconate 324 mg (37.5 mg iron) tablet 324 mg PO DAILY furosemide 20 mg tablet 20 mg PO DAILY aspirin 81 MG tablet,delayed release (DR/EC) 81 mg PO DAILY acetaminophen 500 mg tablet 1,000 mg PO Q8H PRN (Reason: pain) Qty: 60 3RF Dme 1 1.73 m2 SQ ONB PRN PRNQty: 50 0RF amlodipine 5 mg tablet 5 mg PO DAILY Patient Comments: TAKE ONE TABLET BY MOUTH EVERY DAY pantoprazole 40 mg tablet,delayed release (DR/EC) 40 mg PO BID Patient Comments: TAKE ONE TABLET BY MOUTH TWICE A DAY levothyroxine 175 mcg tablet 175 mcg PO DAILY Patient Comments: TAKE ONE TABLET BY MOUTH EVERY DAY Eliquis 5 mg tablet 5 mg PO BID Entresto 24-26 mg tablet 1 tab PO BID carvedilol 12.5 mg tablet 12.5 mg PO BID Jardiance 10 mg tablet 10 mg PO DAILY Patient Comments: TAKE ONE TABLET BY MOUTH EVERY DAY Held insulin aspart U-100 [Novolog U-100 Insulin aspart] 100 unit/mL solution Hold Instructions: resume when pump fixed Patient Comments: INJECT 1.4 UNITS CONTINUOUSLY WITH BOLUS BEFORE MEALS Discharge Instructions Instructions: Hyponatremia Referrals: Shirley Yu MD [Primary Care Provider] - Activity:: Activity as Tolerated Equipment/Supplies:: No Equipment Needed Diet:: Carb Counting Discharge Orders Discharge Orders: Discharge Order (Routine); Ordered 06/30/24 Ordered By: Radha Nava Discharge Data Discharge Date/Time-TO BE ENTERED AT DEPARTURE: 06/30/24 14:12 DS: Summary Time Spent with Patient providing and/or coordinating discharge services: Less than 30 minutes Status at Discharge Functional status at discharge: independent ambulation Overall status at discharge: patient is progressing back to baseline Mental Status: mental status grossly normal Speech and Movement: speech and movement normal Mood: congruent mood Affect: normal affect Quality:SDOH Health Related Social Needs: Health related social needs education (Z55.6) Exam Const General: cooperative, no acute distress and ill appearing chronically Orientation: alert, awake and oriented x3 HENMT Head: normal to inspection, normocephalic and atraumatic Chest Chest: normal inspection of the chest Resp Effort & Inspection: normal respiratory effort Cardio Rate: regular rate Rhythm: regular rhythm GI Inspection: normal to inspection Palpation: soft Auscultation: normal bowel sounds Skin General skin exam: ecchymosis Neuro General: patient alert, patient awake and patient oriented x3 Extrem General: normal to inspection and full ROM Psych Mental Status: mental status grossly normal Speech and Movement: speech and movement normal Mood: congruent mood Affect: normal affect DS: Data Vitals/I&O Vitals and I&O: Vital Signs Temperature 36.4 C L 06/30/24 12:07 Temperature Source Temporal Artery Scan 06/30/24 12:07 Pulse 62 06/30/24 12:07 Pulse Rhythm Regular 06/28/24 00:47 Pulse 68 06/27/24 21:47 Respiratory Rate 14 06/30/24 12:07 Respiratory Effort Normal, Non-Labored 06/28/24 00:47 Respiratory Depth Normal 06/28/24 00:47 Respiratory Pattern Normal 06/28/24 00:47 Blood Pressure 149/59 H 06/30/24 12:07 Blood Pressure Mean 124 06/27/24 21:47 Blood Pressure Position Sitting 06/27/24 19:16 Pulse Oximetry 98 06/30/24 12:07 Oxygen Delivery Method Room Air 06/30/24 12:07 Oxygen Flow Rate 0 06/30/24 12:07 Pain Level 0 06/30/24 12:07 Comment RN Notified 06/30/24 02:32 Intake & Output 06/29/24 06/30/24 06/30/24 23:59 11:59 23:59 Intake Total 1308.75 / 2641.25 Output Total 1400 / 4000 300 / 300 Balance -91.25 / -1358.75 -300 / -300 Weight 59.4 kg Intake: IV 948.75 / 1921.25 Oral 360 / 720 Output: Urine 1400 / 4000 300 / 300 Other: Urine Color Pale Yellow Urine Appearance Clear Clear Urine Odor Normal None Comment Patient voided ind. in the toilet. voided independently Data Completed and Pending Labs on day of discharge: Labs from last 24 hours 06/30/24 06/30/24 07:13 06:10 Sodium 131 L Cancelled Potassium 4.2 Cancelled Chloride 94 L Cancelled Carbon Dioxide 33.2 H Cancelled Anion Gap 3.8 Cancelled BUN 29 H Cancelled Creatinine 1.7 H Cancelled Est GFR (CKD-EPI 2020) 33.07 Cancelled Glucose 218 H Cancelled Calcium 8.4 L Cancelled PFSH All Active Problems Traumatic ecchymosis of chest (Acute) Acute hyperglycemia (Acute) Anemia in CKD (chronic kidney disease) (Acute) Hyponatremia (Acute) HCAP (healthcare-associated pneumonia) (Acute) Closed fracture of left proximal humerus (Acute 06/18/23) Abnormal ankle brachial index (Acute) Concussion (Acute) Ganglion of left wrist (Acute) S/P Excision: 07/30/2021 Cyst (Acute) Right shoulder PAD (peripheral artery disease) (Acute) Infected sebaceous cyst of skin (Acute) Former smoker (Acute) Hx of [facility] use of blood thinners (Acute) COVID-19 (Acute) 05/2021 Sebaceous cyst (Acute) Contusion of left knee (Acute) Leg wound, left (Acute) Medical History Heart failure with recovered ejection fraction (HFrecEF) Infected animal bite of lower leg Struck by pig, initial encounter 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 Surgical History History of incision and drainage (~09/2022) left lower leg I&D after laceration S/P cardiac cath stent placed 4 month ago Hx of removal of cyst (~07/20/21) upper left chest back excision of melanoma on arm. Trigger Finger release (03/29/11) LEFT THUMB Stent placement LE for intermittent claudication Oophrectomy, Both Abdominal hysterectomy (~2001) Carotid endarterectomy bilateral. Social History Smoking/Tobacco Use Status: Current every day Tobacco Type: cigarettes Smoking risk assessment performed?: Yes Alcohol Intake: current Alcohol Intake frequency: a few times a week Alcohol type: hard liquor Drug use: Never Substance use type: does not use Housing: house Current gender identity: female Do you feel safe at home: Yes Do you feel safe in your relationship?: Yes Time Spent with Patient Time Spent with Patient: <45 minutes Time was spent: preparing to see the patient(eg.review tests), obtaining and/or reviewing separately otained hiistory, indepentently interpreting results and counseling the patient
--- NOTE | 2024-06-30 17:11 | PDOC.CMDIS ---
Date of service: 06/30/24 Time of Service: 17:11 LACE Index Scoring Tool Questions: Length of Stay (in days): 3 Was the patient admitted via the E.D.?: Yes Comorbidities: Liver or Renal Disease E.D. Visits: 3 Answers: Total Score: 14 Risk of Readmission: High Risk Care Management Discharge Plan Reason for Hospitalization: hyponatremia Discharge Plan: Casandra returned home today with no new services. She was transported home via private vehicle by family. She will follow up with her PCP and discharge plan of care. She was happy to be going home. Patient/Family Education Needs: Review discharge instructions and limitations, discussion of self care needs including ask me three. SDOH Health Related Social Needs: Health related social needs education (Z55.6)
--- NOTE | 2024-07-01 08:32 | W.INDIABCONS ---
Date of service: 06/28/24 Time of Service: 13:45 Diabetes Inpatient Consult Reason for Visit: received consult request for diabetes education/mgt DESCRIPTION/ASSESSMENT: Visited with Casandra Wednesday 06/28. She was dx with type I diabetes at age ~15. Currently uses dexcom cgm with insulin pump. Denies any special nutrition needs. Declines education as she has been doing this for years. She is anticipating discharge soon and looking forward to managing glucose at home INTERVENTION: will support consistent cho diet PLAN: monitor labs, weight, intake Time Spent in Nutritional Counseling and Treatment: 10 min
== END 2024-06-30 14:12 | disposition home or self-care (01) | DRG 641 ==
LOC: ER 23:17 → MS 06-28 00:38
PROVIDERS: Family Medicine; Admitting Provider Family Medicine; Emergency Provider Physician Assistant; PCP Family Medicine; Responsible Provider Nurse Practitioner Acute Care; Visit Provider Family Medicine
DX: E87.1 Hypo-osmolality and hyponatremia (principal); I50.32 Chronic diastolic (congestive) heart failure; N18.4 Chronic kidney disease, stage 4 (severe); T85.694A Other mechanical complication of insulin pump, initial encounter; I13.0 Hypertensive heart and chronic kidney disease with heart failure and stage 1 through stage 4 chronic kidney disease, or unspecified chronic kidney disease; E10.65 Type 1 diabetes mellitus with hyperglycemia; J44.9 Chronic obstructive pulmonary disease, unspecified; I25.10 Atherosclerotic heart disease of native coronary artery without angina pectoris; E10.22 Type 1 diabetes mellitus with diabetic chronic kidney disease; Z79.01 Long term (current) use of anticoagulants; Z79.02 Long term (current) use of antithrombotics/antiplatelets; Z96.41 Presence of insulin pump (external) (internal); R29.6 Repeated falls; F10.90 Alcohol use, unspecified, uncomplicated; D63.1 Anemia in chronic kidney disease; I73.9 Peripheral vascular disease, unspecified; Z87.891 Personal history of nicotine dependence; E03.9 Hypothyroidism, unspecified; E78.5 Hyperlipidemia, unspecified; Z86.73 Personal history of transient ischemic attack (TIA), and cerebral infarction without residual deficits; Z95.5 Presence of coronary angioplasty implant and graft; S00.31XA Abrasion of nose, initial encounter; W19.XXXA Unspecified fall, initial encounter; S40.011A Contusion of right shoulder, initial encounter; S80.12XA Contusion of left lower leg, initial encounter; S20.211A Contusion of right front wall of thorax, initial encounter
CPT/HCPCS: 00123; 36415; 36416; 71250; 80048; 80053; 80400; 82805; 82947; 82962; 87206; 93005; 99291; 70450; 72125; 73030; 81003; 81015; 83036; 83735; 84443; 85025; 85610; 93010; 99223; 99233; 99239; J0834; J1815

== ENCOUNTER 2024-07-08 17:07 | Outpatient (CLI) | payer OTHER, MEDICAID, SELFPAY ==
[2024-07-08 19:36] LABS: Anion Gap 9.2 mmol/L (3-11); BUN 30 mg/dL (7-18); CO2 30.8 mmol/L (21.0-32.0); CREATININE 1.9 mg/dL (0.55-1.02); Calcium 8.9 mg/dL (8.5-10.1); Chloride 83 mmol/L (98-107); Estimated GFR 28.94 (mL/min/1.73m2); Glucose 244 mg/dL (74-106); Potassium 4.4 mmol/L (3.5-5.1)
[2024-07-08 20:12] LABS: Sodium 123 mmol/L (136-145)
== END 2024-07-08 17:08 | disposition home or self-care (01) ==
LOC: LBO 17:07
PROVIDERS: PCP Family Medicine; Visit Provider Family Medicine
DX: E87.1 Hypo-osmolality and hyponatremia (principal)
CPT/HCPCS: 36415; 80048

== ENCOUNTER 2024-07-09 14:01 | Inpatient (IN) | payer MEDICARE, MEDICAID, SELFPAY ==
[2024-07-09] VITALS (57 sets, daily range): BP systolic 106–192; BP diastolic 39–115; PULSE 62–79; RESP 5–25; TEMP 36.1–36.6; O2SAT 86–98
--- NOTE | 2024-07-09 15:03 | ED.GENADUL_ITS ---
Discharge Plan Disposition Patient Disposition: Admit to [facility] Condition: Stable Discharge Details Chief Complaint: GenMedical Clinical Impression: Hyponatremia Admit Date/Time: 07/09/24 20:06 Admit Provider: Ferdinand Duncan Attending Provider: Ferdinand Duncan Primary Care Provider: Shirley Yu V ED Provider: Jas Kaye Discharge Data Discharge Date/Time-TO BE ENTERED AT DEPARTURE: 07/09/24 21:17 HPI General Date/Time Provider Initiated Documentation: 07/09/24 14:04 . HPI Narrative: 63 year-old female presents to ED today by POV/ambulating with a chief complaint of weakness, confusion, and had out-patient lab draw yesterday showing recurrent hyponatremia with admission here last week, underwent osmolality testing, and had send-out tests for adrenal glands per patient. Quality described as generalized weakness, confusion, no radiation to fever, abdominal pain, vomiting, visual changes, syncope, endorses some dizziness. Severity is described as moderate. Palliating factors include nothing specific. Provoking factors include nothing specific. Events leading up to the incident/Associated Symptoms: Patient has pending referral to [facility] Endocrinology. Patient not anticoagulated. Related Data Home Medications ?Medication ?Instructions ?Recorded ?Confirmed aspirin 81 mg tablet,delayed 81 mg PO DAILY 08/13/12 07/09/24 release Humalog Pump unit subcut 24/01/07/16 11/07/23 cholecalciferol (vitamin D3) 25 1,000 unit PO DAILY 01/07/16 07/09/24 mcg (1,000 unit) capsule (Vitamin D3) acetaminophen 500 mg tablet 1,000 mg (2 x 500 mg) PO Q8H PRN 07/20/21 07/09/24 pain #60 tabs rosuvastatin 10 mg tablet 10 mg PO DAILY 08/17/22 07/09/24 insulin aspart U-100 100 unit/mL 1.4 unit subcut TID 09/23/22 07/09/24 subcutaneous solution (Novolog U-100 Insulin aspart) amlodipine 5 mg tablet 5 mg PO DAILY 06/18/23 07/09/24 pantoprazole 40 mg tablet,delayed 40 mg PO BID 06/18/23 07/09/24 release albuterol sulfate 90 mcg/actuation 2 puff inhalation Q6H PRN 02/01/24 07/09/24 aerosol inhaler citalopram 20 mg tablet 40 mg PO HS 02/01/24 07/09/24 clopidogrel 75 mg tablet 75 mg PO DAILY 02/01/24 07/09/24 ferrous gluconate 324 mg (37.5 mg 324 mg PO DAILY 02/01/24 07/09/24 iron) tablet furosemide 20 mg tablet 20 mg PO DAILY 02/01/24 07/09/24 magnesium oxide 500 mg PO QPM 02/01/24 07/09/24 apixaban 5 mg tablet (Eliquis) 5 mg PO BID 05/21/24 07/09/24 levothyroxine 175 mcg tablet 175 mcg PO DAILY 05/21/24 07/09/24 sacubitril 24 mg-valsartan 26 mg 1 tab PO BID 05/21/24 07/09/24 tablet (Entresto) carvedilol 12.5 mg tablet 12.5 mg PO BID 05/22/24 07/09/24 Dme 1 1.73 m2 SQ ONB PRN PRN #50 SYRGS 06/15/24 07/09/24 empagliflozin 10 mg tablet 10 mg PO DAILY 06/28/24 07/09/24 (Jardiance) insulin glargine 100 unit/mL (3 15 unit (0.15 mL) subcut HS #0 mL 06/30/24 07/09/24 mL) subcutaneous pen (Lantus Solostar U-100 Insulin) Previous Rx's ?Medication ?Instructions ?Recorded acetaminophen 500 mg tablet 1,000 mg (2 x 500 mg) PO Q8H PRN 07/20/21 pain #60 tabs Dme 1 1.73 m2 SQ ONB PRN PRN #50 SYRGS 06/15/24 insulin glargine 100 unit/mL (3 15 unit (0.15 mL) subcut HS #0 mL 06/30/24 mL) subcutaneous pen (Lantus Solostar U-100 Insulin) Allergies Allergy/AdvReac Type Severity Reaction Status Date / Time Sulfa (Sulfonamide Allergy Severe RENAL Verified 07/09/24 14:08 Antibiotics) FAILURE sulfamethoxazole (From Allergy Severe renal Verified 07/09/24 14:08 Bactrim) failure Penicillins Allergy Unknown Other (See Verified 07/09/24 14:08 Comment) trimethoprim (From Bactrim) Allergy Other (See Verified 07/09/24 14:08 Comment) General Stated Complaint: GenMedical DAVID: 3 Review of Systems All systems reviewed & are unremarkable except as noted in HPI and below Exam Narrative Exam Narrative: GENERAL APPEARANCE: Well-nourished, non-toxic, awake and alert, atraumatic, no acute distress. SKIN: Warm, pink, dry, intact, without rashes/lesions/ulcerations. HEAD: Normocephalic, atraumatic, normal hair distribution for gender/age. EYES: Normal conjunctiva, no exudates on lids/lashes. ENT: Nares patent, no circumoral cyanosis, no facial swelling NECK: Supple, trachea midline, painless cervical ROM. LUNGS/CHEST: Lungs CTA bilaterally, non-labored respirations, normal A/P diameter, symmetrical expansion, no chest wall deformity HEART (CV/PV): Regular rate and rhythm without murmur, no peripheral edema, no JVD. ABDOMEN: Soft, non-distended, no guarding. MSK: Normal ROM, no swelling/deformity to bilateral UEs or LEs, moving all extremities without weakness, no cyanosis, spine midline without tenderness, normal curvature. NEURO: Mental Status AAOx4 - alert to person, place, time, events No facial droop, no forehead involvement. Motor: No focal weakness - strength 5/5 in bilateral UEs and LEs, proximal and distal, symmetric. Sensory: sensation intact to light touch globally. Gait normal: patient ambulated without ataxia into ED room. PSYCH: euthymic, cooperative, pleasant, appropriate speech Course Vital Signs Vital signs: Vital Signs Temperature 36.6 C 07/09/24 14:05 Pulse 66 07/09/24 14:05 Respiratory Rate 12 07/09/24 14:05 Blood Pressure 153/76 H 07/09/24 14:05 Pulse Oximetry 96 07/09/24 14:05 Temperature 36.6 C 07/09/24 14:05 Temperature Source Oral 07/09/24 14:05 Pulse 66 07/09/24 14:05 Respiratory Rate 12 07/09/24 14:05 Blood Pressure 153/76 H 07/09/24 14:05 Blood Pressure Position Sitting 07/09/24 14:05 Pulse Oximetry 96 07/09/24 14:05 Oxygen Delivery Method Room Air 07/09/24 14:05 Oxygen Flow Rate 0 07/09/24 14:05 Medical Decision Making This dictation utilizes [id number] dictation software and may contain unedited grammatical errors. 63 year-old female presents to ED today by POV/ambulating with a chief complaint of weakness, confusion, and had out-patient lab draw yesterday showing recurrent hyponatremia with admission here last week, underwent osmolality testing, and had send-out tests for adrenal glands per patient. Quality described as generalized weakness, confusion, no radiation to fever, abdominal pain, vomiting, visual changes, syncope, endorses some dizziness. Severity is described as moderate. Palliating factors include nothing specific. Provoking factors include nothing specific. Events leading up to the incident/Associated Symptoms: Patient has pending referral to [facility] Endocrinology. Patients' medical history: Heart failure, COPD, CAD, carotid stenosis, CKD stage IV, diabetes type 1, history of malignant melanoma, hypertension, PAD. Family and social history: [ ]. Pertinent exam findings / vital signs include neuro intact, benign cardiopulmonary status, benign abdomen. Differential / pathologies of concern include hyponatremia, SIADH, adrenal pathology. Diagnostic studies of: -CBC, CMP, TSH, magnesium, serum/urine osm's. -Sodium of 122 -Creatinine 1.6 -Magnesium within normal limits -TSH elevated at 4.18 -Chronic anemia without leukocytosis -serum/urine osm's pending Interventions of: -Normal saline at 150 mL an hour, consult for admission. ED Course/Assessment/Plan: 63-year-old female presents with recurrent hyponatremia with multiple bouts over the past month or 2 with significant hyponatremia, has pending referral to [facility] endocrinology, was last discharged last week with similar presentation, patient states she is confused and feels weak but is able to give a coherent story, patient is unsure what is causing her hyponatremia. Likely needs slow IV fluids overnight with further water restriction and salty diet, consult with [facility] endocrinology possible from inpatient side. Findings not consistent with central pontine myelinosis. Disposition of hyponatremia. Patient verbalized understanding of the plan and return to ED criteria and engaged in shared decision making. Medical Records Medical records reviewed: Yes I reviewed the patient's medical records. Lab Data Lab results reviewed: Yes I reviewed the patient's lab results. Labs: Laboratory Tests Range/Units 07/09/24 15:45 WBC (4.4-10.8) 10^3/uL 5.59 RBC (3.93-5.22) 10^6/uL 3.34 L Hgb (11.2-15.7) g/dL 11.0 L Hct (36.0-46.0) % 30.4 L MCV (80-95) fL 91 MCH (27.0-33.0) pg 32.9 MCHC (32.0-36.0) % 36.2 H RDW (11.7-14.6) % 12.3 Plt Count (130-400) 10^3/uL 277 MPV (8.0-11.0) fL 8.5 Immature Gran % % 0.2 Neutrophils % % 73.9 Lymphocytes % % 15.4 Monocytes % % 9.3 Eosinophils % % 0.7 Basophils % % 0.5 Nucleated RBC % (0.0-0.3) % 0.0 Absolute Neutrophils (1.2-6.7) 10^3/uL 4.13 Absolute Lymphocytes (1.2-3.4) 10^3/uL 0.86 L Absolute Monocytes (0.1-0.8) 10^3/uL 0.52 Absolute Eosinophils (0.0-0.7) 10^3/uL 0.04 Absolute Basophils (0.0-0.2) 10^3/uL 0.03 Sodium (136-145) mmol/L 122 L* Potassium (3.5-5.1) mmol/L 3.8 Chloride (98-107) mmol/L 86 L Carbon Dioxide (21.0-32.0) mmol/L 31.1 Anion Gap (3-11) mmol/L 4.9 BUN (7-18) mg/dL 30 H Creatinine (0.55-1.02) mg/dL 1.6 H Est GFR (CKD-EPI 2020) (mL/min/1.73m2) 35.57 Glucose (74-106) mg/dL 236 H Calcium (8.5-10.1) mg/dL 8.9 Magnesium (1.8-2.4) mg/dL 2.3 Total Bilirubin (0.2-1.0) mg/dL 0.7 AST (15-37) U/L 36 ALT (14-59) U/L 25 Alkaline Phosphatase (46-116) U/L 131 H Total Protein (6.4-8.2) g/dL 6.3 L Albumin (3.4-5.0) g/dL 3.3 L TSH (0.36-3.74) uIU/mL 4.18 H Free T4 (0.76-1.46) ng/dL 1.29 Quality:SDOH Health Related Social Needs: Health related social needs education (Z55.6) PFSH All Active Problems (Updated 07/09/24 @ 22:00 by GENTRY Pendletno) Hyponatremia (Acute) Traumatic ecchymosis of chest (Acute) Acute hyperglycemia (Acute) Anemia in CKD (chronic kidney disease) (Chronic) Hyponatremia (Acute) HCAP (healthcare-associated pneumonia) (Acute) Closed fracture of left proximal humerus (Acute 06/18/23) Abnormal ankle brachial index (Acute) Concussion (Acute) Ganglion of left wrist (Acute) S/P Excision: 07/30/2021 Cyst (Acute) Right shoulder PAD (peripheral artery disease) (Chronic) Infected sebaceous cyst of skin (Acute) Former smoker (Acute) Hx of [employer] use of blood thinners (Chronic) COVID-19 (Acute) 05/2021 Sebaceous cyst (Acute) Contusion of left knee (Acute) Leg wound, left (Acute) Medical History Heart failure with recovered ejection fraction (HFrecEF) Infected animal bite of lower leg Struck by pig, initial encounter Pulmonary granuloma RLL Wedge Resection 06/2017 COPD (chronic obstructive pulmonary disease) Carotid stenosis CAD (coronary artery disease) CKD (chronic kidney disease) stage 4, GFR 15-29 ml/min Chronic renal insufficiency Hx of malignant melanoma Diabetes mellitus type 1 Pump in situ per [facility] note Hypothyroidism Hyperlipidemia Benign hypertension 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 Surgical History History of incision and drainage (~09/2022) left lower leg I&D after laceration S/P cardiac cath stent placed 4 month ago Hx of removal of cyst (~07/20/21) upper left chest back excision of melanoma on arm. Trigger Finger release (03/29/11) LEFT THUMB Stent placement LE for intermittent claudication Oophrectomy, Both Abdominal hysterectomy (~2001) Carotid endarterectomy bilateral. Social History Smoking/Tobacco Use Status: Current every day Tobacco Type: cigarettes Smoking risk assessment performed?: Yes Alcohol Intake: current Alcohol Intake frequency: a few times a week Alcohol type: hard liquor Drug use: Never Substance use type: does not use Housing: apartment Current gender identity: female Do you feel safe at home: Yes Do you feel safe in your relationship?: Yes
[2024-07-09 15:52] LABS: Abs Immature Grans 0.01 10^3/uL (0.0-0.06); Absolute Basophil Count 0.03 10^3/uL (0.0-0.2); Absolute Eosinophil Count 0.04 10^3/uL (0.0-0.7); Absolute Lymphocyte Count 0.86 10^3/uL (1.2-3.4); Absolute Monocyte Count 0.52 10^3/uL (0.1-0.8); Absolute Neutrophil Count 4.13 10^3/uL (1.2-6.7); Basophils % 0.5 %; Eosinophils % 0.7 %; HCT 30.4 % (36.0-46.0); Immature Grans % 0.2 %; Lymphocytes % 15.4 %; MCH 32.9 pg (27.0-33.0); MCHC 36.2 % (32.0-36.0); MCV 91 fL (80-95); MPV 8.5 fL (8.0-11.0); Monocytes % 9.3 %; Neutrophils % 73.9 %; Platelet Count 277 10^3/uL (130-400); RBC 3.34 10^6/uL (3.93-5.22); RDW 12.3 % (11.7-14.6); RDW-SD 41.1 fL; WBC 5.59 10^3/uL (4.4-10.8)
[2024-07-09] MEDS: Normal Saline 1,000 ML 150 ML IV ×2 (15:52→22:06)
[2024-07-09 17:44] LABS: ALT 25 U/L (14-59); AST 36 U/L (15-37); Albumin 3.3 g/dL (3.4-5.0); Alkaline Phosphatase 131 U/L (46-116); Anion Gap 4.9 mmol/L (3-11); BUN 30 mg/dL (7-18); Bilirubin, Total 0.7 mg/dL (0.2-1.0); CO2 31.1 mmol/L (21.0-32.0); CREATININE 1.6 mg/dL (0.55-1.02); Calcium 8.9 mg/dL (8.5-10.1); Chloride 86 mmol/L (98-107); Estimated GFR 35.57 (mL/min/1.73m2); Glucose 236 mg/dL (74-106); Magnesium 2.3 mg/dL (1.8-2.4); Potassium 3.8 mmol/L (3.5-5.1); TSH (W/Ref FT4) 4.18 uIU/mL (0.36-3.74); Total Protein 6.3 g/dL (6.4-8.2)
[2024-07-09 17:47] LABS: Sodium 122 mmol/L (136-145)
[2024-07-09 18:03] LABS: FREE T4 1.29 ng/dL (0.76-1.46)
--- NOTE | 2024-07-09 18:46 | HPE_ITS ---
Date of service: 07/09/24 Time of Service: 18:46 Assessment and Plan Assessment and plan (1) Hyponatremia: Start date: 07/09/24 Status: Acute Assessment and plan: This is a 63-year lady with outpatient labs being abnormal sent to the ED for evaluation. She does have more severe hyponatremia than previous measurements of her lab though she has minimal confusion associate with her weakness. She was admitted for correction of her sodium monitor closely for rapidity of correction on IV normal saline. She already is on fluid restriction which will be continued. He is not on restricted salt intake despite her history of CHF and on furosemide chronically. She will be follow-up with endocrinology as an outpatient. The patient does expect to return home within 24 hours. She is a full code. (2) Heart failure with recovered ejection fraction (HFrecEF): Assessment and plan: Continue outpatient medical regimen watching for exacerbation. Update echocardiogram as an outpatient with cardiology follow-up. Last echocardiogram was in 2014. (3) Benign hypertension: Assessment and plan: Continue outpatient medical regimen and adjusting as needed. (4) Diabetes mellitus type 1: Assessment and plan: Patient confirmed that she has been diabetic since 15 years of age and is on insulin pump which is being modified at home. Will treat with glucometer measurements before meals and at bedtime with moderate sliding scale short acting insulin coverage while hospitalized and adjust with Lantus if needed. Patient is on low-dose Lantus presently. (5) Hypothyroidism: Assessment and plan: Continue outpatient medical supplement with TSH slightly elevated but free T4 normal. (6) Hyperlipidemia: Assessment and plan: Continue statin therapy. (7) PAD (peripheral artery disease): Status: Chronic Assessment and plan: Continue outpatient medical regimen. (8) Carotid stenosis: Assessment and plan: Status post bilateral carotid endarterectomy. Previous posterior circulation hemorrhagic infarct. She had been on Coumadin in the past and that was on Eliquis but this is more for her stenting of her lower extremity disease. (9) Hx of care home use of blood thinners: Status: Chronic Assessment and plan: Continue Eliquis as prescribed for years because of her PAD and stenting of her lower extremity regulation. (10) Anemia in CKD (chronic kidney disease): Status: Chronic Assessment and plan: Continue outpatient medical therapy. Troponins negative this hospitalization. History of Present Illness History of Present Illness Chief Complaint: Abnormal sodium with some weakness and slight confusion reported. Narrative: This is a 63-year-old female patient who has had hyponatremia in the past and recently more frequently requiring more aggressive evaluation with outpatient consultation pending with endocrinology. She is diagnosed with SIADH and is on a fluid reduction at home. She had labs drawn through her PCP her sodium was low at 122 prompting the patient to be sent to the ED for evaluation. She did complain of some weakness but no true confusion or change in mentation as reported by the ED initially at signout. She does live with family. She does drink alcohol but not daily and is on treatment for CHF with Lasix daily. This is been 3 years. Her hyponatremia has only been a problem more frequently in the last several months. She does add salt to her food as well as have the fluid restriction usually her sodium is above 125. In the ED she was given fluid bolus with normal saline and admitted for observation while correcting her sodium. She has been a diabetic since been 15 years old and has been better controlled with insulin pump recently though the presently she is on sliding scale coverage because of transitioning to a new pump. Her other medical problems stable on Eliquis chronically for atherosclerotic vascular disease and stenting in her vascular for the lower extremities. She also has carotid stenosis with carotid endarterectomy in the past. She has had no strokes. She has no focal neurological complaints. She has had a history of melanoma many years ago with no evidence of recurrence. Patient will be admitted for continued monitoring of lab while IV hydrating. She is a full code. Review of Systems Narrative: 13 point review of systems otherwise unrevealing or stable. 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) COVID-19 (Acute) 05/2021 Sebaceous cyst (Acute) Contusion of left knee (Acute) Leg wound, left (Acute) Medical History Heart failure with recovered ejection fraction (HFrecEF) Infected animal bite of lower leg Struck by pig, initial encounter Pulmonary granuloma RLL Wedge Resection 06/2017 COPD (chronic obstructive pulmonary disease) Carotid stenosis CAD (coronary artery disease) CKD (chronic kidney disease) stage 4, GFR 15-29 ml/min Chronic renal insufficiency Hx of malignant melanoma Diabetes mellitus type 1 Pump in situ per [facility] Hypothyroidism Hyperlipidemia Benign hypertension 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 Surgical History History of incision and drainage (~09/2022) left lower leg I&D after laceration S/P cardiac cath stent placed 4 month ago Hx of removal of cyst (~07/20/21) upper left chest back excision of melanoma on arm. Trigger Finger release (03/29/11) LEFT THUMB Stent placement LE for intermittent claudication Oophrectomy, Both Abdominal hysterectomy (~2001) Carotid endarterectomy bilateral. Social History Smoking/Tobacco Use Status: Current every day Tobacco Type: cigarettes Smoking risk assessment performed?: Yes Alcohol Intake: current Alcohol Intake frequency: a few times a week Alcohol type: hard liquor Drug use: Never Substance use type: does not use Housing: apartment Current gender identity: female Do you feel safe at home: Yes Do you feel safe in your relationship?: Yes Meds Allergies and Home Medications Allergies Allergy/AdvReac Type Severity Reaction Status Date / Time Sulfa (Sulfonamide Allergy Severe RENAL Verified 07/09/24 14:08 Antibiotics) FAILURE sulfamethoxazole (From Allergy Severe renal Verified 07/09/24 14:08 Bactrim) failure Penicillins Allergy Unknown Other (See Verified 07/09/24 14:08 Comment) trimethoprim (From Bactrim) Allergy Other (See Verified 07/09/24 14:08 Comment) Home Medications ?Medication ?Instructions ?Recorded ?Confirmed ?Type aspirin 81 mg tablet,delayed 81 mg PO DAILY 08/13/12 07/09/24 History release Humalog Pump unit subcut /01/07/16 11/07/23 History cholecalciferol (vitamin D3) 25 1,000 unit PO DAILY 01/07/16 07/09/24 History mcg (1,000 unit) capsule (Vitamin D3) acetaminophen 500 mg tablet 1,000 mg (2 x 500 mg) PO Q8H PRN 07/20/21 07/09/24 Rx pain #60 tabs rosuvastatin 10 mg tablet 10 mg PO DAILY 08/17/22 07/09/24 History insulin aspart U-100 100 unit/mL 1.4 unit subcut TID 09/23/22 07/09/24 History subcutaneous solution (Novolog U-100 Insulin aspart) amlodipine 5 mg tablet 5 mg PO DAILY 06/18/23 07/09/24 History pantoprazole 40 mg tablet,delayed 40 mg PO BID 06/18/23 07/09/24 History release albuterol sulfate 90 mcg/actuation 2 puff inhalation Q6H PRN 02/01/24 07/09/24 History aerosol inhaler citalopram 20 mg tablet 40 mg PO HS 02/01/24 07/09/24 History clopidogrel 75 mg tablet 75 mg PO DAILY 02/01/24 07/09/24 History ferrous gluconate 324 mg (37.5 mg 324 mg PO DAILY 02/01/24 07/09/24 History iron) tablet furosemide 20 mg tablet 20 mg PO DAILY 02/01/24 07/09/24 History magnesium oxide 500 mg PO QPM 02/01/24 07/09/24 History apixaban 5 mg tablet (Eliquis) 5 mg PO BID 05/21/24 07/09/24 History levothyroxine 175 mcg tablet 175 mcg PO DAILY 05/21/24 07/09/24 History sacubitril 24 mg-valsartan 26 mg 1 tab PO BID 05/21/24 07/09/24 History tablet (Entresto) carvedilol 12.5 mg tablet 12.5 mg PO BID 05/22/24 07/09/24 History Dme 1 1.73 m2 SQ ONB PRN PRN #50 SYRGS 06/15/24 07/09/24 Rx empagliflozin 10 mg tablet 10 mg PO DAILY 06/28/24 07/09/24 History (Jardiance) insulin glargine 100 unit/mL (3 15 unit (0.15 mL) subcut HS #0 mL 03/23/25 04/01/25 Rx mL) subcutaneous pen (Lantus Solostar U-100 Insulin) Exam Narrative Exam Narrative: General: Patient is appropriate for age, moderately obese, alert and oriented x 3 with no acute distress. HEENT: Normocephalic, eyes with pupils equal and reactive to light symmetrically, extraocular movement intact and sclera anicteric. Oropharynx with moist mucosa and fair dentition. Neck: Supple without JVD. No palpable carotid thrills. Surgical scars bilaterally. Back: Kyphotic without CVA tenderness. Lungs: Fair aeration. Auscultation percussion with no focalizing rales or rhonchi. No expiratory wheeze. Breast: Exam deferred. Heart: Regular rate and rhythm with no murmurs or gallops appreciated. Abdomen: Obese contour, soft and nontender to palpation with no palpable hepatosplenomegaly. Bowel sounds positive all quadrants. Genitalia/rectal: Exam deferred. Extremities: Without clubbing, cyanosis or grossly pitting edema. Fair capillary refill. No joint swelling. Skin: Normal color, warm and dry. Neuro: Cranial nerves II through XII intact, no focalized motor deficits or tremor. Psych: Normal affect and mood. No abnormal thought processes. Remote and recent memory intact. Results Imaging Imaging Studies: Exam(s): T US:Echocardiogram Heart *[facility]* *[facility]* [address] [place] [id number] Date of study: 09/17/2014 *STUDY CONCLUSIONS* Summary: 1. Left ventricle: The cavity size was normal. Wall thickness was normal. Systolic function was normal. The estimated ejection fraction was 55-60%. Wall motion was normal; there were no regional wall motion abnormalities. 2. Aortic valve: Trileaflet; mildly thickened leaflets. There was no stenosis. 3. Mitral valve: Structurally normal valve. Trivial regurgitation. 4. Left atrium: The atrium was mildly to moderately dilated. 5. Right ventricle: The cavity size was normal. Wall thickness was normal. Systolic function was normal. 6. Pulmonary arteries: Pulmonary systolic pressure was within the normal range. Labs 07/10/24 05:22 07/10/24 01:36 Labs: Laboratory Results - last 24 hr 07/09/24 15:45 WBC 5.59 RBC 3.34 L Hgb 11.0 L Hct 30.4 L MCV 91 MCH 32.9 MCHC 36.2 H RDW 12.3 Plt Count 277 MPV 8.5 Immature Gran % 0.2 Neutrophils % 73.9 Lymphocytes % 15.4 Monocytes % 9.3 Eosinophils % 0.7 Basophils % 0.5 Nucleated RBC % 0.0 Absolute Neutrophils 4.13 Absolute Lymphocytes 0.86 L Absolute Monocytes 0.52 Absolute Eosinophils 0.04 Absolute Basophils 0.03 Sodium 122 L* Potassium 3.8 Chloride 86 L Carbon Dioxide 31.1 Anion Gap 4.9 BUN 30 H Creatinine 1.6 H Est GFR (CKD-EPI 2020) 35.57 Glucose 236 H Calcium 8.9 Magnesium 2.3 Total Bilirubin 0.7 AST 36 ALT 25 Alkaline Phosphatase 131 H Total Protein 6.3 L Albumin 3.3 L TSH 4.18 H Free T4 1.29 Last Vital Signs Temp 36.6 C 07/09/24 14:05 Pulse 67 07/09/24 18:31 Resp 12 07/09/24 18:31 BP 185/54 H 07/09/24 18:31 Pulse Ox 95 07/09/24 18:31 Time Spent Time spent with Patient: >75 minutes Time was spent: preparing to see the patient(eg.review tests), obtaining and/or reviewing separately otained hiistory, ordering medications,tests, procedures, indepentently interpreting results, counseling the patient and care coordination
[2024-07-09 21:11] LABS: *AMPHETAMINES SCREEN URINE Negative (Negative); *BARBITURATES SCREEN URINE Negative (Negative); *BENZODIAZEPINES SCREEN URINE Negative (Negative); Cannabinoids THC Negative (Negative); Cocaine Screen,Urine Negative (Negative); METHADONE URINE SCREEN Negative (Negative); OPIATES URINE SCREEN Negative (Negative)
[2024-07-09 21:19] LABS: COVID-19 PCR Negative (Negative); Influenza A PCR Negative (Negative); Influenza B PCR Negative (Negative); RSV PCR Negative (Negative); Source Nasopharynx
[2024-07-09 21:20] LABS: Tricyclic Antidepressants Negative (Negative)
[2024-07-09 22:02] LABS: Osmolality Serum 261 mOsm/kg (275-295)
[2024-07-09] MEDS: Carvedilol 12.5 MG TAB PO (22:07)
[2024-07-09] MEDS: Apixaban 5 MG TAB PO (22:07)
[2024-07-09] MEDS: Citalopram 20 MG TAB 40 MG PO (22:07)
[2024-07-09] MEDS: Pantoprazole 40 MG TABCR PO (22:07)
[2024-07-09] MEDS: Sacubitril/Valsartan 24 mg/26 mg TAB 1 EACH PO (22:07)
[2024-07-09 22:32] LABS: BUN 34 mg/dL (7-18); Calcium 8.6 mg/dL (8.5-10.1); Chloride 85 mmol/L (98-107); Estimated GFR 27.21 (mL/min/1.73m2); Potassium 4.8 mmol/L (3.5-5.1)
[2024-07-09 22:36] LABS: Glucose 519 mg/dL (74-106); Sodium 122 mmol/L (136-145)
[2024-07-09 22:52] LABS: ETHANOL BLOOD < 3.0 mg/dL (<10)
[2024-07-09] MEDS: Insulin Aspart 300 UNITS/3 ML PEN 18 UNITS SC (22:56)
[2024-07-10 00:37] VITALS: BP 181/75; PULSE 66; RESP 19; TEMP 36.2; O2SAT 98
[2024-07-10 02:04] LABS: BUN 34 mg/dL (7-18); CREATININE 1.9 mg/dL (0.55-1.02); Calcium 8.3 mg/dL (8.5-10.1); Chloride 90 mmol/L (98-107); Estimated GFR 28.94 (mL/min/1.73m2); Glucose 349 mg/dL (74-106); Potassium 3.8 mmol/L (3.5-5.1); Sodium 127 mmol/L (136-145)
[2024-07-10 03:15] VITALS: BP 141/80; PULSE 62; RESP 20; TEMP 37.8; O2SAT 95
--- NOTE | 2024-07-10 03:32 | W.PC.ACHO ---
Registration Status: Primary Language: Preferred Language: ED Information & Data Chief Complaint GenMedical 07/09/24 15:04 Triage Note patient called by MD because 07/09/24 14:05 lab results from yesterday showed low sodium levels. Medical / Surgical History (Last Reviewed 07/09/24 @ 18:46 by Ferdinand Duncan) Heart failure with recovered ejection fraction (HFrecEF) Infected animal bite of lower leg Struck by pig, initial encounter Pulmonary granuloma COPD (chronic obstructive pulmonary disease) Carotid stenosis CAD (coronary artery disease) CKD (chronic kidney disease) stage 4, GFR 15-29 ml/min Chronic renal insufficiency Hx of malignant melanoma Diabetes mellitus type 1 Hypothyroidism Hyperlipidemia Benign hypertension Posterior cerebral circulation hemorrhagic infarction Hx MRSA infection (Last Reviewed 07/09/24 @ 18:46 by Ferdinand Duncan) History of incision and drainage (~09/2022) S/P cardiac cath Hx of removal of cyst (~07/20/21) excision of melanoma on arm. Trigger Finger release (03/29/11) Stent placement Oophrectomy, Both Abdominal hysterectomy (~2001) Carotid endarterectomy Most Recent Vital Signs Temperature 37.8 C H 07/10/24 03:15 Temperature Source Tympanic 07/10/24 03:15 Pulse 62 07/10/24 03:15 Pulse Rhythm Regular 07/09/24 21:25 Pulse 76 07/09/24 21:01 Respiratory Rate 20 07/10/24 03:15 Respiratory Effort Normal, Non-Labored 07/09/24 21:25 Respiratory Depth Normal 07/09/24 21:25 Respiratory Pattern Normal 07/09/24 21:25 Blood Pressure 141/80 H 07/10/24 03:15 Blood Pressure Mean 118 07/09/24 21:01 Blood Pressure Position Sitting 07/09/24 14:05 Pulse Oximetry 95 07/10/24 03:15 Oxygen Delivery Method Cpap 07/10/24 03:15 Oxygen Flow Rate 0 07/10/24 00:37 Pain Level 0 07/09/24 21:25 Allergies Sulfa (Sulfonamide Antibiotics) Allergy (Severe, Verified 07/09/24 14:08) RENAL FAILURE sulfamethoxazole (From Bactrim) Allergy (Severe, Verified 07/09/24 14:08) renal failure Penicillins Allergy (Unknown, Verified 07/09/24 14:08) Other (See Comment) unsure, since childhood trimethoprim (From Bactrim) Allergy (Verified 07/09/24 14:08) Other (See Comment) renal failure Precautions Isolation Standard precaution 07/09/24 14:07 Active Medications Generic Name Dose Route Start Last Admin Trade Name Qing PRN Reason Stop Dose Admin Apixaban 5 mg 07/09/24 21:24 07/09/24 22:07 Apixaban 5 Mg Tab PO 5 mg BID SUNIL Administration Carvedilol 12.5 mg 07/09/24 21:24 07/09/24 22:07 Carvedilol 12.5 Mg Tab PO 12.5 mg BID SUNIL Administration Citalopram Hydrobromide 40 mg 07/09/24 21:24 07/09/24 22:07 Citalopram 20 Mg Tab PO 40 mg HS SUNIL Administration Sodium Chloride 1,000 mls @ 80 mls/hr 07/09/24 15:30 07/10/24 02:29 Saline 1000ml Bag IV 80 mls/hr INFUSION SUNIL Infusion Pantoprazole Sodium 40 mg 07/09/24 21:24 07/09/24 22:07 Pantoprazole 40 Mg Tabcr PO 40 mg BID SUNIL Administration Sacubitril/Valsartan 1 each 07/09/24 21:24 07/09/24 22:07 Sacubitril/Valsartan 24 Mg/26 Mg Tab PO 1 each BID SUNIL Administration IV IV Catheter Type [Left Wrist] Peripheral IV IV Catheter Gauge [Left Wrist] 20 Diet Orders Category Date Time Status Diabetes Consistent CHO/Heart Healthy [DIET] Nutrition 07/10/24 Breakfast Active Diagnostics 07/10/24 07/10/24 07/10/24 Range/Units 17:24 13:24 09:24 WBC (4.4-10.8) 10^3/uL RBC (3.93-5.22) 10^6/uL Hgb (11.2-15.7) g/dL Hct (36.0-46.0) % MCV (80-95) fL MCH (27.0-33.0) pg MCHC (32.0-36.0) % RDW (11.7-14.6) % Plt Count (130-400) 10^3/uL MPV (8.0-11.0) fL Immature Gran % % Neutrophils % % Lymphocytes % % Monocytes % % Eosinophils % % Basophils % % Nucleated RBC % (0.0-0.3) % Absolute Neutrophils (1.2-6.7) 10^3/uL Absolute Lymphocytes (1.2-3.4) 10^3/uL Absolute Monocytes (0.1-0.8) 10^3/uL Absolute Eosinophils (0.0-0.7) 10^3/uL Absolute Basophils (0.0-0.2) 10^3/uL Sodium Pending Pending Pending (136-145) mmol/L Potassium Pending Pending Pending (3.5-5.1) mmol/L Chloride Pending Pending Pending (98-107) mmol/L Carbon Dioxide Pending Pending Pending (21.0-32.0) mmol/L Anion Gap Pending Pending Pending (3-11) mmol/L BUN Pending Pending Pending (7-18) mg/dL Creatinine Pending Pending Pending (0.55-1.02) mg/dL Est GFR (CKD-EPI 2020) Pending Pending Pending (mL/min/1.73m2) Glucose Pending Pending Pending (74-106) mg/dL Serum Osmolality Calcium Pending Pending Pending (8.5-10.1) mg/dL Magnesium (1.8-2.4) mg/dL Total Bilirubin (0.2-1.0) mg/dL Conjugated Bilirubin AST (15-37) U/L ALT (14-59) U/L Alkaline Phosphatase (46-116) U/L Total Protein (6.4-8.2) g/dL Albumin (3.4-5.0) g/dL TSH (0.36-3.74) uIU/mL Free T4 (0.76-1.46) ng/dL Urine Osmolality Urine Opiates Screen (Negative) Urine Methadone Screen (Negative) Ur Barbiturates Screen (Negative) Ur Tricyclics Screen (Negative) Ur Amphetamines Screen (Negative) U Benzodiazepines Scrn (Negative) Urine Cocaine Screen (Negative) Ur THC Screen (Negative) Ethyl Alcohol (<10) mg/dL COVID-19 Source SARS-CoV-2 (PCR) (Negative) Influenza Type A (PCR) (Negative) Influenza Type B (PCR) (Negative) RSV (PCR) (Negative) 07/10/24 07/10/24 07/10/24 Range/Units 05:35 05:24 01:36 WBC Pending (4.4-10.8) 10^3/uL RBC Pending (3.93-5.22) 10^6/uL Hgb Pending (11.2-15.7) g/dL Hct Pending (36.0-46.0) % MCV Pending (80-95) fL MCH Pending (27.0-33.0) pg MCHC Pending (32.0-36.0) % RDW Pending (11.7-14.6) % Plt Count Pending (130-400) 10^3/uL MPV Pending (8.0-11.0) fL Immature Gran % % Neutrophils % % Lymphocytes % % Monocytes % % Eosinophils % % Basophils % % Nucleated RBC % (0.0-0.3) % Absolute Neutrophils (1.2-6.7) 10^3/uL Absolute Lymphocytes (1.2-3.4) 10^3/uL Absolute Monocytes (0.1-0.8) 10^3/uL Absolute Eosinophils (0.0-0.7) 10^3/uL Absolute Basophils (0.0-0.2) 10^3/uL Sodium Pending 127 L (136-145) mmol/L Potassium Pending 3.8 D (3.5-5.1) mmol/L Chloride Pending 90 L (98-107) mmol/L Carbon Dioxide Pending 30.0 (21.0-32.0) mmol/L Anion Gap Pending 7.0 (3-11) mmol/L BUN Pending 34 H (7-18) mg/dL Creatinine Pending 1.9 H (0.55-1.02) mg/dL Est GFR (CKD-EPI 2020) Pending 28.94 (mL/min/1.73m2) Glucose Pending 349 H (74-106) mg/dL Serum Osmolality Calcium Pending 8.3 L (8.5-10.1) mg/dL Magnesium Pending (1.8-2.4) mg/dL Total Bilirubin Pending (0.2-1.0) mg/dL Conjugated Bilirubin Pending AST Pending (15-37) U/L ALT Pending (14-59) U/L Alkaline Phosphatase Pending (46-116) U/L Total Protein Pending (6.4-8.2) g/dL Albumin Pending (3.4-5.0) g/dL TSH (0.36-3.74) uIU/mL Free T4 (0.76-1.46) ng/dL Urine Osmolality Urine Opiates Screen (Negative) Urine Methadone Screen (Negative) Ur Barbiturates Screen (Negative) Ur Tricyclics Screen (Negative) Ur Amphetamines Screen (Negative) U Benzodiazepines Scrn (Negative) Urine Cocaine Screen (Negative) Ur THC Screen (Negative) Ethyl Alcohol (<10) mg/dL COVID-19 Source SARS-CoV-2 (PCR) (Negative) Influenza Type A (PCR) (Negative) Influenza Type B (PCR) (Negative) RSV (PCR) (Negative) 07/09/24 07/09/24 07/09/24 Range/Units 22:03 20:36 18:20 WBC (4.4-10.8) 10^3/uL RBC (3.93-5.22) 10^6/uL Hgb (11.2-15.7) g/dL Hct (36.0-46.0) % MCV (80-95) fL MCH (27.0-33.0) pg MCHC (32.0-36.0) % RDW (11.7-14.6) % Plt Count (130-400) 10^3/uL MPV (8.0-11.0) fL Immature Gran % % Neutrophils % % Lymphocytes % % Monocytes % % Eosinophils % % Basophils % % Nucleated RBC % (0.0-0.3) % Absolute Neutrophils (1.2-6.7) 10^3/uL Absolute Lymphocytes (1.2-3.4) 10^3/uL Absolute Monocytes (0.1-0.8) 10^3/uL Absolute Eosinophils (0.0-0.7) 10^3/uL Absolute Basophils (0.0-0.2) 10^3/uL Sodium 122 L* (136-145) mmol/L Potassium 4.8 D (3.5-5.1) mmol/L Chloride 85 L (98-107) mmol/L Carbon Dioxide 31.0 (21.0-32.0) mmol/L Anion Gap 6.0 (3-11) mmol/L BUN 34 H (7-18) mg/dL Creatinine 2.0 H (0.55-1.02) mg/dL Est GFR (CKD-EPI 2020) 27.21 (mL/min/1.73m2) Glucose 519 H* (74-106) mg/dL Serum Osmolality Calcium 8.6 (8.5-10.1) mg/dL Magnesium (1.8-2.4) mg/dL Total Bilirubin (0.2-1.0) mg/dL Conjugated Bilirubin AST (15-37) U/L ALT (14-59) U/L Alkaline Phosphatase (46-116) U/L Total Protein (6.4-8.2) g/dL Albumin (3.4-5.0) g/dL TSH (0.36-3.74) uIU/mL Free T4 (0.76-1.46) ng/dL Urine Osmolality Pending Urine Opiates Screen Negative (Negative) Urine Methadone Screen Negative (Negative) Ur Barbiturates Screen Negative (Negative) Ur Tricyclics Screen Negative (Negative) Ur Amphetamines Screen Negative (Negative) U Benzodiazepines Scrn Negative (Negative) Urine Cocaine Screen Negative (Negative) Ur THC Screen Negative (Negative) Ethyl Alcohol < 3.0 (<10) mg/dL COVID-19 Source Nasopharynx SARS-CoV-2 (PCR) Negative (Negative) Influenza Type A (PCR) Negative (Negative) Influenza Type B (PCR) Negative (Negative) RSV (PCR) Negative (Negative) 07/09/24 Range/Units 15:45 WBC 5.59 (4.4-10.8) 10^3/uL RBC 3.34 L (3.93-5.22) 10^6/uL Hgb 11.0 L (11.2-15.7) g/dL Hct 30.4 L (36.0-46.0) % MCV 91 (80-95) fL MCH 32.9 (27.0-33.0) pg MCHC 36.2 H (32.0-36.0) % RDW 12.3 (11.7-14.6) % Plt Count 277 (130-400) 10^3/uL MPV 8.5 (8.0-11.0) fL Immature Gran % 0.2 % Neutrophils % 73.9 % Lymphocytes % 15.4 % Monocytes % 9.3 % Eosinophils % 0.7 % Basophils % 0.5 % Nucleated RBC % 0.0 (0.0-0.3) % Absolute Neutrophils 4.13 (1.2-6.7) 10^3/uL Absolute Lymphocytes 0.86 L (1.2-3.4) 10^3/uL Absolute Monocytes 0.52 (0.1-0.8) 10^3/uL Absolute Eosinophils 0.04 (0.0-0.7) 10^3/uL Absolute Basophils 0.03 (0.0-0.2) 10^3/uL Sodium 122 L* (136-145) mmol/L Potassium 3.8 (3.5-5.1) mmol/L Chloride 86 L (98-107) mmol/L Carbon Dioxide 31.1 (21.0-32.0) mmol/L Anion Gap 4.9 (3-11) mmol/L BUN 30 H (7-18) mg/dL Creatinine 1.6 H (0.55-1.02) mg/dL Est GFR (CKD-EPI 2020) 35.57 (mL/min/1.73m2) Glucose 236 H (74-106) mg/dL Serum Osmolality Pending Calcium 8.9 (8.5-10.1) mg/dL Magnesium 2.3 (1.8-2.4) mg/dL Total Bilirubin 0.7 (0.2-1.0) mg/dL Conjugated Bilirubin AST 36 (15-37) U/L ALT 25 (14-59) U/L Alkaline Phosphatase 131 H (46-116) U/L Total Protein 6.3 L (6.4-8.2) g/dL Albumin 3.3 L (3.4-5.0) g/dL TSH 4.18 H (0.36-3.74) uIU/mL Free T4 1.29 (0.76-1.46) ng/dL Urine Osmolality Urine Opiates Screen (Negative) Urine Methadone Screen (Negative) Ur Barbiturates Screen (Negative) Ur Tricyclics Screen (Negative) Ur Amphetamines Screen (Negative) U Benzodiazepines Scrn (Negative) Urine Cocaine Screen (Negative) Ur THC Screen (Negative) Ethyl Alcohol (<10) mg/dL COVID-19 Source SARS-CoV-2 (PCR) (Negative) Influenza Type A (PCR) (Negative) Influenza Type B (PCR) (Negative) RSV (PCR) (Negative) [id number] Documentation Fingerstick Glucose Start: 07/09/24 21:24 Freq: AC & HS Status: Active Protocol: Activity Type Activity Date Activity User E-sign Co-sign Detail Recorded Client Recorded Date Recorded By Document 07/10/24 00:34 BKG DAEMON(9) [id number] 07/10/24 00:35 BKG DAEMON(10) Intake and Output - 24 Hour Total 07/09/24 14:01 thru 07/10/24 02:31 Intake Total 1720.0 Output Total 2250 Balance -530.0 Weight 64.9 kg Intake: IV 1470.0 Oral 250 Output: Urine 2250 Other: Urine Color Yellow Urine Appearance Clear Urine Odor Normal Falls Risk Assessment History of Falls Previous History 07/09/24 21:25 Contributing Factors Medications 07/09/24 21:25 Ambulatory Aids Independent 07/09/24 21:25 Tubes/Lines With any additional score 07/09/24 21:25 Gait Evaluation No gait disturbance 07/09/24 21:25 Cognition No cognitive impairment 07/09/24 21:25 Fall Total Score 38 07/09/24 21:25 Level of Risk Moderate Risk 07/09/24 21:25 Problems (Last Reviewed 07/09/24 @ 18:46 by Ferdinand Duncan) Anemia in CKD (chronic kidney disease) (Chronic) Hyponatremia (Acute) PAD (peripheral artery disease) (Chronic) Hx of intermediate use of blood thinners (Chronic) v v v v v v v v v Sending and/or Receiving Nurses: Please use comment section below to note any information pertinent to the patient hand-off not included above. Information / Comments: Has been having issues with hyponatremia, admitted after PCP labs 120s, Has not had confusion in ER, NS @ 150ml/hr, dinner given, has not had nighttime medications, #20 Left wrist, UDS collected, FLUVID sent Report received from: Timothy Carreon @ 2100
[2024-07-10 05:30] LABS: HCT 28.8 % (36.0-46.0); HGB 10.3 g/dL (11.2-15.7); MCH 32.6 pg (27.0-33.0); MCHC 35.8 % (32.0-36.0); MCV 91 fL (80-95); MPV 8.8 fL (8.0-11.0); Platelet Count 287 10^3/uL (130-400); RBC 3.16 10^6/uL (3.93-5.22); RDW 12.3 % (11.7-14.6); RDW-SD 41.1 fL; WBC 6.13 10^3/uL (4.4-10.8)
[2024-07-10 05:41] LABS: Anion Gap 5.4 mmol/L (3-11); BUN 33 mg/dL (7-18); CO2 32.6 mmol/L (21.0-32.0); CREATININE 1.7 mg/dL (0.55-1.02); Calcium 8.4 mg/dL (8.5-10.1); Chloride 92 mmol/L (98-107); Estimated GFR 33.07 (mL/min/1.73m2); Glucose 225 mg/dL (74-106); Potassium 3.9 mmol/L (3.5-5.1); Sodium 130 mmol/L (136-145)
[2024-07-10 05:46] LABS: ALT 22 U/L (14-59); AST 25 U/L (15-37); Albumin 2.8 g/dL (3.4-5.0); Alkaline Phosphatase 116 U/L (46-116); Bilirubin, Direct 0.2 mg/dL (0.0-0.2); Bilirubin, Total 0.6 mg/dL (0.2-1.0); Magnesium 1.9 mg/dL (1.8-2.4); Total Protein 5.4 g/dL (6.4-8.2)
[2024-07-10] MEDS: Normal Saline 1,000 ML 80 ML IV (05:58)
[2024-07-10] MEDS: Levothyroxine 175 MCG TAB PO (06:01)
[2024-07-10 07:22] VITALS: BP 173/59; PULSE 66; RESP 16; TEMP 37.2; O2SAT 96
--- NOTE | 2024-07-10 07:41 | W.PM.DS.N ---
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 Sodium levels were found to be in the low 120s for which patient was on normal saline and had improvement of her sodium levels. Given the patient was entirely asymptomatic and her sodium levels improved it was determined that she was stable for discharge home. PCP follow-up: -Follow-up BMP in the next 3 to 4 days -Recommend initiation of salt tabs as patient has been compliant with her diabetes regimen and fluid restriction Home Meds and New Rx's Prescriptions: Continued rosuvastatin 10 mg tablet 10 mg PO DAILY cholecalciferol (vitamin D3) [Vitamin D3] 1,000 UNIT capsule 1,000 unit PO DAILY humalog pump subcut 31/10 Patient Comments: Not set up yet albuterol sulfate 90 mcg/actuation HFA aerosol inhaler 2 puff inhalation Q6H PRN citalopram 20 mg tablet 40 mg PO HS clopidogrel 75 mg tablet 75 mg PO DAILY magnesium oxide 250 mg magnesium tablet 500 mg PO QPM ferrous gluconate 324 mg (37.5 mg iron) tablet 324 mg PO DAILY furosemide 20 mg tablet 20 mg PO DAILY aspirin 81 MG tablet,delayed release (DR/EC) 81 mg PO DAILY acetaminophen 500 mg tablet 1,000 mg PO Q8H PRN (Reason: pain) Qty: 60 3RF insulin aspart U-100 [Novolog U-100 Insulin aspart] 100 unit/mL solution 1.4 unit subcut TID Patient Comments: INJECT 1.4 UNITS CONTINUOUSLY WITH BOLUS BEFORE MEALS Dme 1 1.73 m2 SQ ONB PRN PRNQty: 50 0RF amlodipine 5 mg tablet 5 mg PO DAILY Patient Comments: TAKE ONE TABLET BY MOUTH EVERY DAY pantoprazole 40 mg tablet,delayed release (DR/EC) 40 mg PO BID Patient Comments: TAKE ONE TABLET BY MOUTH TWICE A DAY levothyroxine 175 mcg tablet 175 mcg PO DAILY Patient Comments: TAKE ONE TABLET BY MOUTH EVERY DAY Eliquis 5 mg tablet 5 mg PO BID Entresto 24-26 mg tablet 1 tab PO BID carvedilol 12.5 mg tablet 12.5 mg PO BID Jardiance 10 mg tablet 10 mg PO DAILY Patient Comments: TAKE ONE TABLET BY MOUTH EVERY DAY insulin glargine [Lantus Solostar U-100 Insulin] 100 unit/mL (3 mL) Insulin Pen 15 unit subcut HS Qty: 0 0RF Discharge Instructions Activity:: Activity as Tolerated Equipment/Supplies:: No Equipment Needed Diet:: As Tolerated Discharge Orders Discharge Orders: Discharge Order (Routine); Ordered 07/10/24 Ordered By: Waldemar Ngo DS: Summary Time Spent with Patient providing and/or coordinating discharge services: Greater than 30 minutes Status at Discharge Functional status at discharge: independent ambulation Overall status at discharge: patient is back to baseline Mental Status: mental status grossly normal Speech and Movement: speech and movement normal Mood: congruent mood Affect: normal affect Quality:SDOH Health Related Social Needs: Health related social needs education (Z55.6) Exam Narrative Exam Narrative: Well-appearing older female laying in bed in no acute distress, ANO x 4, heart regular rhythm, lungs clear to auscultation bilaterally, abdomen soft, nontender, nondistended Psych Mental Status: mental status grossly normal Speech and Movement: speech and movement normal Mood: congruent mood Affect: normal affect DS: Data Vitals/I&O Vitals and I&O: Vital Signs Temperature 99.0 F 07/10/24 07:22 Temperature Source Temporal Artery Scan 07/10/24 07:22 Pulse 66 07/10/24 07:22 Pulse Rhythm Regular 07/09/24 21:25 Pulse 76 07/09/24 21:01 Respiratory Rate 16 07/10/24 07:22 Respiratory Effort Normal, Non-Labored 07/09/24 21:25 Respiratory Depth Normal 07/09/24 21:25 Respiratory Pattern Normal 07/09/24 21:25 Blood Pressure 173/59 H 07/10/24 07:22 Blood Pressure Mean 118 07/09/24 21:01 Blood Pressure Position Sitting 07/09/24 14:05 Pulse Oximetry 96 07/10/24 07:22 Oxygen Delivery Method Room Air 07/10/24 07:22 Oxygen Flow Rate 0 07/10/24 07:22 Pain Level 0 07/10/24 07:22 Intake & Output 07/09/24 07/10/24 07/10/24 17:59 05:59 17:59 Intake Total 1997.667 / 7 128 / 128 Output Total 2250 / 2250 600 / 600 Balance -251.333 / -251.333 -472 / -472 Weight 148 lb 143 lb 1.28 oz 139 lb 15.896 oz Intake: IV 1748.667 / 1748.667 128 / 128 Oral 250 / 250 Output: Urine 2250 / 2250 600 / 600 Other: Urine Color Yellow Yellow Urine Appearance Clear Clear Urine Odor Normal Normal Data Completed and Pending Labs on day of discharge: Labs from last 24 hours 07/10/24 07/10/24 07/10/24 17:24 13:24 09:24 WBC RBC Hgb Hct MCV MCH MCHC RDW Plt Count MPV Immature Gran % Neutrophils % Lymphocytes % Monocytes % Eosinophils % Basophils % Nucleated RBC % Absolute Neutrophils Absolute Lymphocytes Absolute Monocytes Absolute Eosinophils Absolute Basophils Sodium Pending Pending Pending Potassium Pending Pending Pending Chloride Pending Pending Pending Carbon Dioxide Pending Pending Pending Anion Gap Pending Pending Pending BUN Pending Pending Pending Creatinine Pending Pending Pending Est GFR (CKD-EPI 2020) Pending Pending Pending Glucose Pending Pending Pending Serum Osmolality Calcium Pending Pending Pending Magnesium Total Bilirubin Conjugated Bilirubin AST ALT Alkaline Phosphatase Total Protein Albumin TSH Free T4 Urine Osmolality Urine Opiates Screen Urine Methadone Screen Ur Barbiturates Screen Ur Tricyclics Screen Ur Amphetamines Screen U Benzodiazepines Scrn Urine Cocaine Screen Ur THC Screen Ethyl Alcohol COVID-19 Source SARS-CoV-2 (PCR) Influenza Type A (PCR) Influenza Type B (PCR) RSV (PCR) 07/10/24 07/10/24 07/09/24 05:22 01:36 22:03 WBC 6.13 RBC 3.16 L Hgb 10.3 L Hct 28.8 L MCV 91 MCH 32.6 MCHC 35.8 RDW 12.3 Plt Count 287 MPV 8.8 Immature Gran % Neutrophils % Lymphocytes % Monocytes % Eosinophils % Basophils % Nucleated RBC % Absolute Neutrophils Absolute Lymphocytes Absolute Monocytes Absolute Eosinophils Absolute Basophils Sodium 130 L 127 L 122 L* Potassium 3.9 3.8 D 4.8 D Chloride 92 L 90 L 85 L Carbon Dioxide 32.6 H 30.0 31.0 Anion Gap 5.4 7.0 6.0 BUN 33 H 34 H 34 H Creatinine 1.7 H 1.9 H 2.0 H Est GFR (CKD-EPI 2020) 33.07 28.94 27.21 Glucose 225 H 349 H 519 H* Serum Osmolality Calcium 8.4 L 8.3 L 8.6 Magnesium 1.9 Total Bilirubin 0.6 Conjugated Bilirubin 0.2 AST 25 ALT 22 Alkaline Phosphatase 116 Total Protein 5.4 L Albumin 2.8 L TSH Free T4 Urine Osmolality Urine Opiates Screen Urine Methadone Screen Ur Barbiturates Screen Ur Tricyclics Screen Ur Amphetamines Screen U Benzodiazepines Scrn Urine Cocaine Screen Ur THC Screen Ethyl Alcohol < 3.0 COVID-19 Source SARS-CoV-2 (PCR) Influenza Type A (PCR) Influenza Type B (PCR) RSV (PCR) 07/09/24 07/09/24 07/09/24 20:36 18:20 15:45 WBC 5.59 RBC 3.34 L Hgb 11.0 L Hct 30.4 L MCV 91 MCH 32.9 MCHC 36.2 H RDW 12.3 Plt Count 277 MPV 8.5 Immature Gran % 0.2 Neutrophils % 73.9 Lymphocytes % 15.4 Monocytes % 9.3 Eosinophils % 0.7 Basophils % 0.5 Nucleated RBC % 0.0 Absolute Neutrophils 4.13 Absolute Lymphocytes 0.86 L Absolute Monocytes 0.52 Absolute Eosinophils 0.04 Absolute Basophils 0.03 Sodium 122 L* Potassium 3.8 Chloride 86 L Carbon Dioxide 31.1 Anion Gap 4.9 BUN 30 H Creatinine 1.6 H Est GFR (CKD-EPI 2020) 35.57 Glucose 236 H Serum Osmolality Pending Calcium 8.9 Magnesium 2.3 Total Bilirubin 0.7 Conjugated Bilirubin AST 36 ALT 25 Alkaline Phosphatase 131 H Total Protein 6.3 L Albumin 3.3 L TSH 4.18 H Free T4 1.29 Urine Osmolality Pending Urine Opiates Screen Negative Urine Methadone Screen Negative Ur Barbiturates Screen Negative Ur Tricyclics Screen Negative Ur Amphetamines Screen Negative U Benzodiazepines Scrn Negative Urine Cocaine Screen Negative Ur THC Screen Negative Ethyl Alcohol COVID-19 Source Nasopharynx SARS-CoV-2 (PCR) Negative Influenza Type A (PCR) Negative Influenza Type B (PCR) Negative RSV (PCR) Negative PFSH All Active Problems Hyponatremia (Acute) Traumatic ecchymosis of chest (Acute) Acute hyperglycemia (Acute) Anemia in CKD (chronic kidney disease) (Chronic) Hyponatremia (Acute) HCAP (healthcare-associated pneumonia) (Acute) Closed fracture of left proximal humerus (Acute 06/18/23) Abnormal ankle brachial index (Acute) Concussion (Acute) Ganglion of left wrist (Acute) S/P Excision: 07/30/2021 Cyst (Acute) Right shoulder PAD (peripheral artery disease) (Chronic) Infected sebaceous cyst of skin (Acute) Former smoker (Acute) 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 (Chronic) COVID-19 (Acute) 05/2021 Sebaceous cyst (Acute) Contusion of left knee (Acute) Leg wound, left (Acute) Medical History Heart failure with recovered ejection fraction (HFrecEF) Infected animal bite of lower leg Struck by pig, initial encounter 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 Surgical History History of incision and drainage (~09/2022) left lower leg I&D after laceration S/P cardiac cath stent placed 4 month ago Hx of removal of cyst (~07/20/21) upper left chest back excision of melanoma on arm. Trigger Finger release (03/29/11) LEFT THUMB Stent placement LE for intermittent claudication Oophrectomy, Both Abdominal hysterectomy (~2001) Carotid endarterectomy bilateral. Social History Smoking/Tobacco Use Status: Current every day Tobacco Type: cigarettes Smoking risk assessment performed?: Yes Alcohol Intake: current Alcohol Intake frequency: a few times a week Alcohol type: hard liquor Drug use: Never Substance use type: does not use Housing: apartment Current gender identity: female Do you feel safe at home: Yes Do you feel safe in your relationship?: Yes Time Spent with Patient Time Spent with Patient: <45 minutes Time was spent: preparing to see the patient(eg.review tests), obtaining and/or reviewing separately otained hiistory, ordering medications,tests, procedures, referring, communicating with other health transition of care specialist, indepentently interpreting results, counseling the patient and care coordination
[2024-07-10] MEDS: Clopidogrel 75 MG TAB PO (07:49)
[2024-07-10] MEDS: Furosemide 20 MG TAB PO (07:49)
[2024-07-10] MEDS: amLODIPine 5 MG TAB PO (07:49)
[2024-07-10] MEDS: Aspirin E.C. 81 MG TABEC PO (07:49)
[2024-07-10] MEDS: Apixaban 5 MG TAB PO (07:49)
[2024-07-10] MEDS: Ferrous Gluconate 324 MG TAB PO (07:49)
[2024-07-10] MEDS: Carvedilol 12.5 MG TAB PO (07:49)
[2024-07-10] MEDS: Pantoprazole 40 MG TABCR PO (07:49)
[2024-07-10] MEDS: Sacubitril/Valsartan 24 mg/26 mg TAB 1 EACH PO (07:49)
[2024-07-10] MEDS: Rosuvastatin 10 MG TAB PO (07:50)
[2024-07-10] MEDS: Cholecalciferol (Vitamin D3) 1,000 UNIT TAB 1000 UNITS PO (07:50)
--- NOTE | 2024-07-10 08:26 | PDOC.CMIN ---
Date of service: 07/10/24 Time of Service: 08:26 Care Management Initial Assmt Advance Directives Advance Directives: Do you have an Advance Directive: N 05/21/24 14:59 AD On File at [facility]: N 11/17/22 11:47 Date Asked 07/09/24 07/09/24 21:17 AD Date Reviewed COLST On File at [facility] No 06/13/24 21:38 COLST Date Scanned Code Status Resuscitation Status Full Code Care Team Visit Care Team Role Provider Type Waldemar Ngo MD MD [facility] STAFF PHYSICIAN Shirley Yu MD Primary Care Provider [facility] ST[facility] PHYSICIAN [facility] Provider [facility] Ferdinand Duncan Admit Provider NON-[facility] STAFF PHYSICIAN Attending Provider Social Determinants of Health Screening Social Determinants of Health last assessed: 07/10/24 Will the Patient Participate in the Screening?: Yes Do you worry about having a steady place to live?: no Problems where you live: no known problems In the past 12 months, have you had to go without electric, gas, oil or water in your home?: no Have you or anyone in your house had to go without enough food to eat?: no Has lack of transportation kept you from medical appointments or from doing things needed for daily living?: no Has anyone in your life made you feel unsafe or unsupported?: no How hard is it for you to pay for the very basics like food, housing, medical care, and heating? Would you say it is:: Not hard at all Do you want help finding or keeping work or a job?: I do not need or want help If for any reason you need help with day-to-day activities such as bathing, preparing meals, shopping, managing finances, etc., do you get the help you need?: I don?t need any help How often do you feel lonely or isolated from those around you?: Never Do you speak a language other than German at home?: No Does the patient want assistance with any of the above?: No PFSH All Active Problems Hyponatremia (Acute) Traumatic ecchymosis of chest (Acute) Acute hyperglycemia (Acute) Anemia in CKD (chronic kidney disease) (Chronic) Hyponatremia (Acute) HCAP (healthcare-associated pneumonia) (Acute) Closed fracture of left proximal humerus (Acute 06/18/23) Abnormal ankle brachial index (Acute) Concussion (Acute) Ganglion of left wrist (Acute) S/P Excision: 07/30/2021 Cyst (Acute) Right shoulder PAD (peripheral artery disease) (Chronic) Infected sebaceous cyst of skin (Acute) Former smoker (Acute) 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) COVID-19 (Acute) 05/2021 Sebaceous cyst (Acute) Contusion of left knee (Acute) Leg wound, left (Acute) Medical History Heart failure with recovered ejection fraction (HFrecEF) Infected animal bite of lower leg Struck by pig, initial encounter Pulmonary granuloma RLL Wedge Resection 06/2017 COPD (chronic obstructive pulmonary disease) Carotid stenosis CAD (coronary artery disease) CKD (chronic kidney disease) stage 4, GFR 15-29 ml/min Chronic renal insufficiency Hx of malignant melanoma Diabetes mellitus type 1 Pump in situ per [facility] note Hypothyroidism Hyperlipidemia Benign hypertension 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 Surgical History History of incision and drainage (~09/2022) left lower leg I&D after laceration S/P cardiac cath stent placed 4 month ago Hx of removal of cyst (~07/20/21) upper left chest back excision of melanoma on arm. Trigger Finger release (03/29/11) LEFT THUMB Stent placement LE for intermittent claudication Oophrectomy, Both Abdominal hysterectomy (~2001) Carotid endarterectomy bilateral. Social History Smoking/Tobacco Use Status: Current every day Tobacco Type: cigarettes Smoking risk assessment performed?: Yes Alcohol Intake: current Alcohol Intake frequency: a few times a week Alcohol type: hard liquor Drug use: Never Substance use type: does not use Housing: apartment Current gender identity: female Do you feel safe at home: Yes Do you feel safe in your relationship?: Yes
[2024-07-10] MEDS: Insulin Aspart 300 UNITS/3 ML PEN SC (08:30)
--- NOTE | 2024-07-10 08:52 | PDOC.CMPRO ---
Date of service: 07/10/24 Time of Service: 08:52 Care Management Progress Note Progress Note Text Progress Note Text: Casandra was admitted last evening with hyponatremia. Her sodium was 122 but she was asymptomatic. Casandra has chronic hyponatremia and the sodium level was noted during routine blood work.. She was treated with normal saline. Her sodium increased to 130 and she was discharged home. Social Determinants of Health Screening Social Determinants of Health last assessed: 07/10/24 Will the Patient Participate in the Screening?: Yes Do you worry about having a steady place to live?: no Problems where you live: no known problems In the past 12 months, have you had to go without electric, gas, oil or water in your home?: no Have you or anyone in your house had to go without enough food to eat?: no Has lack of transportation kept you from medical appointments or from doing things needed for daily living?: no Has anyone in your life made you feel unsafe or unsupported?: no How hard is it for you to pay for the very basics like food, housing, medical care, and heating? Would you say it is:: Not hard at all Do you want help finding or keeping work or a job?: I do not need or want help If for any reason you need help with day-to-day activities such as bathing, preparing meals, shopping, managing finances, etc., do you get the help you need?: I don?t need any help How often do you feel lonely or isolated from those around you?: Never Do you speak a language other than Macedonian at home?: No Does the patient want assistance with any of the above?: No
--- NOTE | 2024-07-10 09:18 | NUR.NOTE ---
patient AxOx4 this shift, VSS with exception of HTN but given AM BP meds, patient denies pain, denies neuro changes, Na 130 this AM, given extra aspart overnight due to hyperglycemia, patient tolerating diet, ambulates without assistance, PIV removed and all belongings packed up for discharge. D/c instructions reviewed with pt at discharge, pt knows to make f/u appt with PCP but reports she has appt for tomorrow, she knows to ask about f/u with endocrinology and ask about possible salt tablets, patient denies further questions or concerns at discharge, waiting for ride home. Nursing Note:
[2024-07-10 18:28] LABS: Osmolality, Urine 162 mOsm/kg (150-1150)
== END 2024-07-10 09:45 | disposition home or self-care (01) | DRG 644 ==
LOC: ER 14:53 → MS 21:13
PROVIDERS: Admitting Provider Family Medicine; Emergency Provider Physician Assistant; PCP Family Medicine; Responsible Provider Family Medicine; Visit Provider Family Medicine
DX: E22.2 Syndrome of inappropriate secretion of antidiuretic hormone (principal); I13.0 Hypertensive heart and chronic kidney disease with heart failure and stage 1 through stage 4 chronic kidney disease, or unspecified chronic kidney disease; I50.32 Chronic diastolic (congestive) heart failure; N18.32 Chronic kidney disease, stage 3b; E03.9 Hypothyroidism, unspecified; E78.2 Mixed hyperlipidemia; I73.9 Peripheral vascular disease, unspecified; R53.1 Weakness; D63.1 Anemia in chronic kidney disease; E10.22 Type 1 diabetes mellitus with diabetic chronic kidney disease; Z96.41 Presence of insulin pump (external) (internal); Z86.73 Personal history of transient ischemic attack (TIA), and cerebral infarction without residual deficits; Z95.828 Presence of other vascular implants and grafts; Z79.01 Long term (current) use of anticoagulants; Z90.2 Acquired absence of lung [part of]; J44.9 Chronic obstructive pulmonary disease, unspecified; I25.10 Atherosclerotic heart disease of native coronary artery without angina pectoris; Z86.14 Personal history of Methicillin resistant Staphylococcus aureus infection; F17.210 Nicotine dependence, cigarettes, uncomplicated; Z79.899 Other long term (current) drug therapy
CPT/HCPCS: 00123; 36415; 80048; 80053; 80076; 80307; 83935; 85027; 87637; 99285; 80320; 83735; 83930; 84439; 84443; 85025; 99223; 99239; J1815

== ENCOUNTER 2024-07-12 16:44 | Outpatient (REF) | payer MEDICARE, MEDICAID, SELFPAY ==
[2024-07-12 18:58] LABS: BUN 21 mg/dL (7-18); CREATININE 1.6 mg/dL (0.55-1.02); Chloride 91 mmol/L (98-107); Estimated GFR 35.57 (mL/min/1.73m2); Glucose 177 mg/dL (74-106); Potassium 3.9 mmol/L (3.5-5.1); Sodium 127 mmol/L (136-145)
== END 2024-07-12 16:45 | disposition home or self-care (01) ==
LOC: NCHCN 16:44
PROVIDERS: PCP Family Medicine; Visit Provider Family Medicine
DX: E87.1 Hypo-osmolality and hyponatremia (principal)
CPT/HCPCS: 80048

== ENCOUNTER 2024-07-18 10:33 | Outpatient (REF) | payer MEDICARE, MEDICAID, SELFPAY ==
[2024-07-30 10:28] LABS: Misc Referral (MAYO) See Comments
== END 2024-07-18 10:34 | disposition home or self-care (01) ==
LOC: NCHCN 10:33
PROVIDERS: PCP Family Medicine; Visit Provider Family Medicine
DX: E87.1 Hypo-osmolality and hyponatremia (principal)
CPT/HCPCS: 84588

== ENCOUNTER 2024-07-25 10:22 | Outpatient (CLI) | payer MEDICARE, MEDICAID, SELFPAY | END 2024-07-25 10:23 | disposition home or self-care (01) | LOC: LBO 12-05 10:25 | PROVIDERS: PCP Family Medicine; Visit Provider Family Medicine | DX: E87.1 Hypo-osmolality and hyponatremia (principal); E10.319 Type 1 diabetes mellitus with unspecified diabetic retinopathy without macular edema | CPT/HCPCS: 36415; 82533 ==

== ENCOUNTER 2024-07-29 19:42 | Outpatient (REF) | payer MEDICARE, MEDICAID, SELFPAY ==
[2024-07-29 19:18] LABS: BUN 18 mg/dL (7-18); CO2 30.6 mmol/L (21.0-32.0); CREATININE 1.6 mg/dL (0.55-1.02); Calcium 8.9 mg/dL (8.5-10.1); Estimated GFR 35.57 (mL/min/1.73m2); Glucose 200 mg/dL (74-106)
[2024-07-29 19:40] LABS: Anion Gap 1.4 mmol/L (3-11); Chloride 89 mmol/L (98-107)
[2024-07-29 19:50] LABS: Sodium 121 mmol/L (136-145)
== END 2024-07-29 19:43 | disposition home or self-care (01) ==
LOC: NCHCN 19:42
PROVIDERS: PCP Family Medicine; Visit Provider Family Medicine
DX: E87.1 Hypo-osmolality and hyponatremia (principal)
CPT/HCPCS: 80048

== ENCOUNTER 2024-07-31 15:23 | Inpatient (IN) | payer MEDICARE, MEDICAID, SELFPAY ==
[2024-07-31] VITALS (66 sets, daily range): BP systolic 132–204; BP diastolic 45–81; PULSE 50–105; RESP 12–37; TEMP 36.6–36.7; O2SAT 87–100
--- NOTE | 2024-07-31 15:30 | RT.EKG_ITS ---
APPROVED REPORT Exam: Resting ECG Reason for Exam: Weakness Patient Location: E HR:64 bpm ECG Measurements Heart Rate 64 AXIS OR 241 P 68 QRSd 103 QRS 4 QT 453 T 65 QTc 469 Conclusion Sinus rhythm...normal P axis, V-rate 60- 99 Prolonged OR interval...OR >220, V-rate 50- 90 Low voltage, extremity and precordial leads...extremity<0.5mV, precordial<1.0mV Sinus rhythm. 1st degree heart block. No change from prior. 06/27/24. WD
[2024-07-31 16:20] LABS: Abs Immature Grans 0.01 10^3/uL (0.0-0.06); Absolute Basophil Count 0.03 10^3/uL (0.0-0.2); Absolute Eosinophil Count 0.06 10^3/uL (0.0-0.7); Absolute Lymphocyte Count 1.04 10^3/uL (1.2-3.4); Absolute Monocyte Count 0.38 10^3/uL (0.1-0.8); Absolute Neutrophil Count 2.77 10^3/uL (1.2-6.7); Basophils % 0.7 %; Eosinophils % 1.4 %; HCT 31.9 % (36.0-46.0); HGB 11.1 g/dL (11.2-15.7); Immature Grans % 0.2 %; Lymphocytes % 24.2 %; MCH 32.3 pg (27.0-33.0); MCHC 34.8 % (32.0-36.0); MCV 93 fL (80-95); MPV 8.9 fL (8.0-11.0); Monocytes % 8.9 %; Neutrophils % 64.6 %; Platelet Count 262 10^3/uL (130-400); RBC 3.44 10^6/uL (3.93-5.22); RDW 12.7 % (11.7-14.6); RDW-SD 43.1 fL; WBC 4.29 10^3/uL (4.4-10.8)
[2024-07-31 16:22] LABS: Lactate 1.3 mmol/L (<or=2.0)
[2024-07-31 16:33] LABS: Ammonia 13 umol/L (11-32)
[2024-07-31 16:51] LABS: ALT 22 U/L (14-59); AST 33 U/L (15-37); Albumin 2.8 g/dL (3.4-5.0); Alkaline Phosphatase 146 U/L (46-116); Anion Gap 6.6 mmol/L (3-11); BUN 20 mg/dL (7-18); Bilirubin, Direct 0.2 mg/dL (0.0-0.2); Bilirubin, Total 0.4 mg/dL (0.2-1.0); CO2 29.4 mmol/L (21.0-32.0); CREATININE 1.4 mg/dL (0.55-1.02); Calcium 8.6 mg/dL (8.5-10.1); Chloride 87 mmol/L (98-107); Estimated GFR 41.75 (mL/min/1.73m2); Glucose 61 mg/dL (74-106); Lipase 29 U/L (<78); Magnesium 2.4 mg/dL (1.8-2.4); Potassium 4.5 mmol/L (3.5-5.1); TSH (W/Ref FT4) 11.17 uIU/mL (0.36-3.74); Troponin I 14 ng/L (<or=51)
[2024-07-31 16:57] LABS: COVID-19 PCR Negative (Negative); Influenza A PCR Negative (Negative); Influenza B PCR Negative (Negative); RSV PCR Negative (Negative)
[2024-07-31 16:58] LABS: Source Nasopharynx
[2024-07-31 16:58] LABS: Sodium 123 mmol/L (136-145)
[2024-07-31] MEDS: Normal Saline 1,000 ML 75 ML IV (17:00)
[2024-07-31 17:14] LABS: FREE T4 1.09 ng/dL (0.76-1.46)
[2024-07-31 17:27] LABS: Troponin I 15 ng/L (<or=51)
--- NOTE | 2024-07-31 17:44 | ED.GENADUL_ITS ---
Discharge Plan Disposition Patient Disposition: Admit to [facility] Condition: Stable Discharge Details Clinical Impression: Hyponatremia Admit Date/Time: 07/31/24 21:29 Admit Provider: Ferdinand Duncan Attending Provider: Ferdinand Duncan Primary Care Provider: Shirley Yu V ED Provider: Jas Kaye HPI General Date/Time Provider Initiated Documentation: 07/31/24 15:37 . HPI Narrative: 63 year-old female presents to ED today by POV/ambulating with a chief complaint of weakness, confusion, difficulty holding her head up, low blood sugar per family, recent outpatient labs showing hyponatremia with unknown cause- has had multiple episodes. Quality described as generalized weakness, patient answering questions but keeping eyes closed, no radiation to chest pain, nausea/vomiting, urinary/bowel changes, headache, visual changes, has not attempted much ambulating. Severity is described as severe. Palliating factors include nothing specific. Provoking factors include nothing specific. Events leading up to the incident/Associated Symptoms: Patient has longstanding diabetes, COPD, coronary artery disease, heart failure, malignant melanoma, CKD, hypertension, hyperlipidemia. Patient is anticoagulated. Related Data Home Medications ?Medication ?Instructions ?Recorded ?Confirmed aspirin 81 mg tablet,delayed 81 mg PO DAILY 08/13/12 07/31/24 release Humalog Pump 1 unit subcut /01/07/16 07/31/24 cholecalciferol (vitamin D3) 25 1,000 unit PO DAILY 01/07/16 07/31/24 mcg (1,000 unit) capsule (Vitamin D3) acetaminophen 500 mg tablet 1,000 mg (2 x 500 mg) PO Q8H PRN 07/20/21 07/31/24 pain #60 tabs rosuvastatin 10 mg tablet 10 mg PO DAILY 08/17/22 07/31/24 insulin aspart U-100 100 unit/mL 1.4 unit subcut TID 09/23/22 07/31/24 subcutaneous solution (Novolog U-100 Insulin aspart) amlodipine 5 mg tablet 5 mg PO DAILY 06/18/23 07/31/24 pantoprazole 40 mg tablet,delayed 40 mg PO BID 06/18/23 07/31/24 release albuterol sulfate 90 mcg/actuation 2 puff inhalation Q6H PRN 02/01/24 07/31/24 aerosol inhaler citalopram 20 mg tablet 40 mg PO HS 02/01/24 07/31/24 clopidogrel 75 mg tablet 75 mg PO DAILY 02/01/24 07/31/24 ferrous gluconate 324 mg (37.5 mg 324 mg PO DAILY 02/01/24 07/31/24 iron) tablet furosemide 20 mg tablet 20 mg PO DAILY 02/01/24 07/31/24 magnesium oxide 500 mg PO QPM 02/01/24 07/31/24 apixaban 5 mg tablet (Eliquis) 5 mg PO BID 05/21/24 07/31/24 levothyroxine 175 mcg tablet 175 mcg PO DAILY 05/21/24 07/31/24 sacubitril 24 mg-valsartan 26 mg 1 tab PO BID 05/21/24 07/31/24 tablet (Entresto) carvedilol 12.5 mg tablet 12.5 mg PO BID 05/22/24 07/31/24 Dme 1 1.73 m2 SQ ONB PRN PRN #50 SYRGS 06/15/24 07/31/24 empagliflozin 10 mg tablet 10 mg PO DAILY 06/28/24 07/31/24 (Jardiance) insulin glargine 100 unit/mL (3 15 unit (0.15 mL) subcut HS #0 mL 06/30/24 07/31/24 mL) subcutaneous pen (Lantus Solostar U-100 Insulin) Previous Rx's ?Medication ?Instructions ?Recorded acetaminophen 500 mg tablet 1,000 mg (2 x 500 mg) PO Q8H PRN 07/20/21 pain #60 tabs Dme 1 1.73 m2 SQ ONB PRN PRN #50 SYRGS 06/15/24 insulin glargine 100 unit/mL (3 15 unit (0.15 mL) subcut HS #0 mL 06/30/24 mL) subcutaneous pen (Lantus Solostar U-100 Insulin) Allergies Allergy/AdvReac Type Severity Reaction Status Date / Time Sulfa (Sulfonamide Allergy Severe RENAL Verified 07/31/24 15:31 Antibiotics) FAILURE sulfamethoxazole (From Allergy Severe renal Verified 07/31/24 15:31 Bactrim) failure Penicillins Allergy Unknown Other (See Verified 07/31/24 15:31 Comment) trimethoprim (From Bactrim) Allergy Other (See Verified 07/31/24 15:31 Comment) General Stated Complaint: Dizzy/Sync DAVID: 3 Review of Systems All systems reviewed & are unremarkable except as noted in HPI and below Exam Narrative Exam Narrative: GENERAL APPEARANCE: Well-nourished, non-toxic, awake and alert, atraumatic, no acute distress. SKIN: Warm, pink, dry, intact, without rashes/lesions/ulcerations. HEAD: Normocephalic, atraumatic, normal hair distribution for gender/age. EYES: Normal conjunctiva, no exudates on lids/lashes, question mild scleral icterus ENT: Nares patent, no circumoral cyanosis, no facial swelling NECK: Supple, trachea midline, painless cervical ROM. LUNGS/CHEST: Lungs CTA bilaterally- no rhonchi/rales diffusely, some expiratory wheezing consistent with COPD, non-labored respirations, normal A/P diameter, symmetrical expansion, no chest wall deformity HEART (CV/PV): Regular rate and rhythm without murmur, no peripheral edema, no JVD. ABDOMEN: Soft, non-distended, no guarding, no tenderness. MSK: Normal ROM, no swelling/deformity to bilateral UEs or LEs, moving all extremities without weakness, no cyanosis, spine midline without tenderness, normal curvature. NEURO: Mental Status AAOx4 - alert to person, place, time, events No facial droop, no forehead involvement. Motor: No focal weakness - strength 5/5 in bilateral UEs and LEs, proximal and distal, symmetric. Sensory: sensation intact to light touch globally. Gait NT. PSYCH: euthymic, cooperative, pleasant, appropriate speech Course Vital Signs Vital signs: Vital Signs Temperature 36.6 C 07/31/24 15:26 Pulse 62 07/31/24 15:26 Respiratory Rate 20 07/31/24 15:26 Blood Pressure 141/65 H 07/31/24 15:26 Pulse Oximetry 100 07/31/24 15:26 Temperature 36.6 C 07/31/24 15:26 Pulse 62 07/31/24 15:26 Pulse 81 07/31/24 17:20 Respiratory Rate 20 07/31/24 15:26 Respiratory Effort Normal 07/31/24 16:20 Respiratory Depth Normal 07/31/24 16:20 Respiratory Pattern Normal 07/31/24 16:20 Blood Pressure 132/75 07/31/24 16:21 Blood Pressure Mean 94 07/31/24 16:21 Blood Pressure Position Sitting 07/31/24 15:26 Pulse Oximetry 98 07/31/24 16:21 Oxygen Delivery Method Room Air 07/31/24 15:26 Oxygen Flow Rate 0 07/31/24 15:26 Lab/Test Results Lab/Test Results: Laboratory Tests Range/Units 07/31/24 07/31/24 07/31/24 16:15 16:18 17:05 WBC (4.4-10.8) 10^3/uL 4.29 L RBC (3.93-5.22) 10^6/uL 3.44 L Hgb (11.2-15.7) g/dL 11.1 L Hct (36.0-46.0) % 31.9 L MCV (80-95) fL 93 MCH (27.0-33.0) pg 32.3 MCHC (32.0-36.0) % 34.8 RDW (11.7-14.6) % 12.7 Plt Count (130-400) 10^3/uL 262 MPV (8.0-11.0) fL 8.9 Immature Gran % % 0.2 Neutrophils % % 64.6 Lymphocytes % % 24.2 Monocytes % % 8.9 Eosinophils % % 1.4 Basophils % % 0.7 Nucleated RBC % (0.0-0.3) % 0.0 Absolute Neutrophils (1.2-6.7) 10^3/uL 2.77 Absolute Lymphocytes (1.2-3.4) 10^3/uL 1.04 L Absolute Monocytes (0.1-0.8) 10^3/uL 0.38 Absolute Eosinophils (0.0-0.7) 10^3/uL 0.06 Absolute Basophils (0.0-0.2) 10^3/uL 0.03 VBG Lactate (<or=2.0) mmol/L 1.3 Sodium (136-145) mmol/L 123 L* Potassium (3.5-5.1) mmol/L 4.5 Chloride (98-107) mmol/L 87 L Carbon Dioxide (21.0-32.0) mmol/L 29.4 Anion Gap (3-11) mmol/L 6.6 BUN (7-18) mg/dL 20 H Creatinine (0.55-1.02) mg/dL 1.4 H Est GFR (CKD-EPI 2020) (mL/min/1.73m2) 41.75 Glucose (74-106) mg/dL 61 L Calcium (8.5-10.1) mg/dL 8.6 Magnesium (1.8-2.4) mg/dL 2.4 Total Bilirubin (0.2-1.0) mg/dL 0.4 Conjugated Bilirubin (0.0-0.2) mg/dL 0.2 AST (15-37) U/L 33 ALT (14-59) U/L 22 Alkaline Phosphatase (46-116) U/L 146 H Ammonia (11-32) umol/L 13 Troponin I (<or=51) ng/L 14 15 Total Protein (6.4-8.2) g/dL 6.0 L Albumin (3.4-5.0) g/dL 2.8 L Lipase (<78) U/L 29 TSH (0.36-3.74) uIU/mL 11.17 H Free T4 (0.76-1.46) ng/dL 1.09 COVID-19 Source Nasopharynx SARS-CoV-2 (PCR) (Negative) Negative Influenza Type A (PCR) (Negative) Negative Influenza Type B (PCR) (Negative) Negative RSV (PCR) (Negative) Negative Medical Decision Making This dictation utilizes [id number] dictation software and may contain unedited grammatical errors. 63 year-old female presents to ED today by POV/ambulating with a chief complaint of weakness, confusion, difficulty holding her head up, low blood sugar per family, recent outpatient labs showing hyponatremia with unknown cause- has had multiple episodes. Quality described as generalized weakness, patient answering questions but keeping eyes closed, no radiation to chest pain, nausea/vomiting, urinary/bowel changes, headache, visual changes, has not attempted much ambulating. Severity is described as severe. Palliating factors include nothing specific. Provoking factors include nothing specific. Patients' medical history: Multiple comorbidities-T2DM, CAD, CHF, COPD, carotid stenosis, CKD, malignant melanoma. Family and social history: Lives at home with family, no exercise regimen, states former smoker. Pertinent exam findings / vital signs include mentating appropriately, answering all questions appropriately, initially was acting very fatigued but was sitting upright without issue eating and drinking observed once moved to ED room 4, benign cardiopulmonary exam, benign abdomen, nontoxic, stable vitals, question mild scleral icterus, mild expiratory wheezes of COPD without labored breathing or hypoxia. Differential / pathologies of concern include hyponatremia, fatigue, dehydration, hypothyroidism, CHF exacerbation, COPD exacerbation, viral syndrome. Diagnostic studies of: - CBC, BMP, liver panel, serial troponins, lactate, TSH, lipase, ammonia, magnesium, respiratory PCR swab, EKG, urinalysis, osmolality urine, osmolality serum. - CBC shows mild leukopenia with mild chronic anemia - BMP shows hyponatremia of 123, improved from 2 days ago outpatient lab draw of 121-creatinine 1.4 improvement from prior values, glucose 61 given food - Magnesium within normal limits - Liver panel unremarkable - Serial troponins negative - Lipase negative - TSH is markedly elevated at 11.17 with a normal T4 - Urine shows proteinuria with trace blood - Ammonia within normal limits - PCR swab negative - Osmolalities are pending-send outs - EKG shows sinus rhythm at 64 bpm with prolonged MA interval, low voltage, normal QT QTc, poor R wave progression, no ST changes, no T wave inversions -recheck of BMP shows Na+ 120, and potassium went from 3.3 > 5.9, suspect lab error as patient has been feeling better, rechecking BMP again, rechecking EKG -EKG does show some changes in v4 QRS complex, not overly wide compared to prior, some more pronounced T-waves in V3-4 but question lead placement, holding hyperkalemia shift treatment until 3rd BMP returns. -repeat BMP shows Na+ of 119, re-paging hospitalist, persistent hyperkalemia 5.9 without EKG changes Interventions of: -75mL/hr NS IVF - recheck BMP shows worsening hyponatremia, now having hyperkalemia- making sure this is not a lab error with a recheck as this was the 2nd recheck sample they were sent, first was hemolyzed. -Patient received ~300mL over 4 hours -Spoke with Dr. Duncan at 2100 - for ICU admission, accepted. Patient will go upstairs and be given 3% NS for hyponatremia, insulin/calcium/albuterol/d5/kayexelate for hyperkalemia - *added ETOH level ED Course/Assessment/Plan: 63-year-old female presents with low blood sugar readings at home, fatigue, her family has barely been able to get up out of bed-has been dealing with chronic hyponatremia with unsure cause. Patient's blood sugar was 123 and was answering questions appropriately without motor deficits showing moderate hyponatremia without severe symptoms indicating very slow normal saline and limiting oral intake of H2O, I did recheck after couple hours and it shows worsening hyponatremia to 120, there had been a prior hemolyzed study so I did recheck it is now worsening to 1 1920 minutes later, patient also had an acute bump from 3.3-5.9 for potassium without significant EKG changes, the patient has had osmolality test sent out in the past has had cortisol levels checked, unsure of etiology for her chronic hyponatremia. I did speak with hospitalist Dr. Joaquin who accepts for admission to ICU, states that he will initiate treatment of hypertonic saline and shift her potassium when she goes upstairs which should be very soon as there is a bed open, patient otherwise had been eating, feeling better throughout the visit despite worsening hyponatremia and hyperkalemia. Disposition of Hyponatremia, Hyperkalemia. Patient verbalized understanding of the plan and return to ED criteria and engaged in shared decision making. Medical Records Medical records reviewed: Yes I reviewed the patient's medical records. Lab Data Lab results reviewed: Yes I reviewed the patient's lab results. Labs: Laboratory Tests Range/Units 07/31/24 07/31/24 07/31/24 16:15 16:18 17:05 WBC (4.4-10.8) 10^3/uL 4.29 L RBC (3.93-5.22) 10^6/uL 3.44 L Hgb (11.2-15.7) g/dL 11.1 L Hct (36.0-46.0) % 31.9 L MCV (80-95) fL 93 MCH (27.0-33.0) pg 32.3 MCHC (32.0-36.0) % 34.8 RDW (11.7-14.6) % 12.7 Plt Count (130-400) 10^3/uL 262 MPV (8.0-11.0) fL 8.9 Immature Gran % % 0.2 Neutrophils % % 64.6 Lymphocytes % % 24.2 Monocytes % % 8.9 Eosinophils % % 1.4 Basophils % % 0.7 Nucleated RBC % (0.0-0.3) % 0.0 Absolute Neutrophils (1.2-6.7) 10^3/uL 2.77 Absolute Lymphocytes (1.2-3.4) 10^3/uL 1.04 L Absolute Monocytes (0.1-0.8) 10^3/uL 0.38 Absolute Eosinophils (0.0-0.7) 10^3/uL 0.06 Absolute Basophils (0.0-0.2) 10^3/uL 0.03 VBG Lactate (<or=2.0) mmol/L 1.3 Sodium (136-145) mmol/L 123 L* Potassium (3.5-5.1) mmol/L 4.5 Chloride (98-107) mmol/L 87 L Carbon Dioxide (21.0-32.0) mmol/L 29.4 Anion Gap (3-11) mmol/L 6.6 BUN (7-18) mg/dL 20 H Creatinine (0.55-1.02) mg/dL 1.4 H Est GFR (CKD-EPI 2020) (mL/min/1.73m2) 41.75 Glucose (74-106) mg/dL 61 L Calcium (8.5-10.1) mg/dL 8.6 Magnesium (1.8-2.4) mg/dL 2.4 Total Bilirubin (0.2-1.0) mg/dL 0.4 Conjugated Bilirubin (0.0-0.2) mg/dL 0.2 AST (15-37) U/L 33 ALT (14-59) U/L 22 Alkaline Phosphatase (46-116) U/L 146 H Ammonia (11-32) umol/L 13 Troponin I (<or=51) ng/L 14 15 Total Protein (6.4-8.2) g/dL 6.0 L Albumin (3.4-5.0) g/dL 2.8 L Lipase (<78) U/L 29 TSH (0.36-3.74) uIU/mL 11.17 H Free T4 (0.76-1.46) ng/dL 1.09 Urine Color (Yellow) Urine Clarity (Clear) Urine pH (5-8) Ur Specific [place] (1.005-1.025) Urine Protein (Neg-Trace) mg/dL Urine Ketones (Negative) mg/dL Urine Blood (Negative) Urine Nitrite (Negative) Urine Bilirubin (Negative) Urine Urobilinogen (Up to 0.2) mg/dL Ur Leukocyte Esterase (Negative) Urine RBC (0-2) HPF Urine WBC (0-5) HPF Ur Epithelial Cells (Negative) HPF Urine Crystals (Negative) HPF Urine Bacteria (Negative) HPF Urine Mucus (Negative) Ur Culture Indicated? Urine Glucose (Negative) mg/dL COVID-19 Source Nasopharynx SARS-CoV-2 (PCR) (Negative) Negative Influenza Type A (PCR) (Negative) Negative Influenza Type B (PCR) (Negative) Negative RSV (PCR) (Negative) Negative Range/Units 07/31/24 07/31/24 07/31/24 17:54 19:38 19:53 WBC (4.4-10.8) 10^3/uL RBC (3.93-5.22) 10^6/uL Hgb (11.2-15.7) g/dL Hct (36.0-46.0) % MCV (80-95) fL MCH (27.0-33.0) pg MCHC (32.0-36.0) % RDW (11.7-14.6) % Plt Count (130-400) 10^3/uL MPV (8.0-11.0) fL Immature Gran % % Neutrophils % % Lymphocytes % % Monocytes % % Eosinophils % % Basophils % % Nucleated RBC % (0.0-0.3) % Absolute Neutrophils (1.2-6.7) 10^3/uL Absolute Lymphocytes (1.2-3.4) 10^3/uL Absolute Monocytes (0.1-0.8) 10^3/uL Absolute Eosinophils (0.0-0.7) 10^3/uL Absolute Basophils (0.0-0.2) 10^3/uL VBG Lactate (<or=2.0) mmol/L Sodium (136-145) mmol/L Cancelled 120 L* Potassium (3.5-5.1) mmol/L Cancelled 5.9 H D Chloride (98-107) mmol/L Cancelled 86 L Carbon Dioxide (21.0-32.0) mmol/L Cancelled 27.7 Anion Gap (3-11) mmol/L Cancelled 6.3 BUN (7-18) mg/dL Cancelled 21 H Creatinine (0.55-1.02) mg/dL Cancelled 1.6 H Est GFR (CKD-EPI 2020) (mL/min/1.73m2) Cancelled 35.57 Glucose (74-106) mg/dL Cancelled 307 H Calcium (8.5-10.1) mg/dL Cancelled 8.3 L Magnesium (1.8-2.4) mg/dL Total Bilirubin (0.2-1.0) mg/dL Conjugated Bilirubin (0.0-0.2) mg/dL AST (15-37) U/L ALT (14-59) U/L Alkaline Phosphatase (46-116) U/L Ammonia (11-32) umol/L Troponin I (<or=51) ng/L 12 Total Protein (6.4-8.2) g/dL Albumin (3.4-5.0) g/dL Lipase (<78) U/L TSH (0.36-3.74) uIU/mL Free T4 (0.76-1.46) ng/dL Urine Color (Yellow) Yellow Urine Clarity (Clear) Clear Urine pH (5-8) 7.0 Ur Specific [place] (1.005-1.025) 1.015 Urine Protein (Neg-Trace) mg/dL >=300 H Urine Ketones (Negative) mg/dL Negative Urine Blood (Negative) Trace-intact H Urine Nitrite (Negative) Negative Urine Bilirubin (Negative) Negative Urine Urobilinogen (Up to 0.2) mg/dL 0.2 Ur Leukocyte Esterase (Negative) Negative Urine RBC (0-2) HPF 3-5 H Urine WBC (0-5) HPF Negative Ur Epithelial Cells (Negative) HPF Rare Urine Crystals (Negative) HPF Negative Urine Bacteria (Negative) HPF Rare Urine Mucus (Negative) Trace Ur Culture Indicated? No Urine Glucose (Negative) mg/dL Negative COVID-19 Source SARS-CoV-2 (PCR) (Negative) Influenza Type A (PCR) (Negative) Influenza Type B (PCR) (Negative) RSV (PCR) (Negative) Range/Units 07/31/24 20:26 WBC (4.4-10.8) 10^3/uL RBC (3.93-5.22) 10^6/uL Hgb (11.2-15.7) g/dL Hct (36.0-46.0) % MCV (80-95) fL MCH (27.0-33.0) pg MCHC (32.0-36.0) % RDW (11.7-14.6) % Plt Count (130-400) 10^3/uL MPV (8.0-11.0) fL Immature Gran % % Neutrophils % % Lymphocytes % % Monocytes % % Eosinophils % % Basophils % % Nucleated RBC % (0.0-0.3) % Absolute Neutrophils (1.2-6.7) 10^3/uL Absolute Lymphocytes (1.2-3.4) 10^3/uL Absolute Monocytes (0.1-0.8) 10^3/uL Absolute Eosinophils (0.0-0.7) 10^3/uL Absolute Basophils (0.0-0.2) 10^3/uL VBG Lactate (<or=2.0) mmol/L Sodium (136-145) mmol/L 119 L* Potassium (3.5-5.1) mmol/L 5.9 H Chloride (98-107) mmol/L 87 L Carbon Dioxide (21.0-32.0) mmol/L 26.9 Anion Gap (3-11) mmol/L 5.1 BUN (7-18) mg/dL 22 H Creatinine (0.55-1.02) mg/dL 1.6 H Est GFR (CKD-EPI 2020) (mL/min/1.73m2) 35.57 Glucose (74-106) mg/dL 336 H Calcium (8.5-10.1) mg/dL 8.4 L Magnesium (1.8-2.4) mg/dL Total Bilirubin (0.2-1.0) mg/dL Conjugated Bilirubin (0.0-0.2) mg/dL AST (15-37) U/L ALT (14-59) U/L Alkaline Phosphatase (46-116) U/L Ammonia (11-32) umol/L Troponin I (<or=51) ng/L Total Protein (6.4-8.2) g/dL Albumin (3.4-5.0) g/dL Lipase (<78) U/L TSH (0.36-3.74) uIU/mL Free T4 (0.76-1.46) ng/dL Urine Color (Yellow) Urine Clarity (Clear) Urine pH (5-8) Ur Specific [place] (1.005-1.025) Urine Protein (Neg-Trace) mg/dL Urine Ketones (Negative) mg/dL Urine Blood (Negative) Urine Nitrite (Negative) Urine Bilirubin (Negative) Urine Urobilinogen (Up to 0.2) mg/dL Ur Leukocyte Esterase (Negative) Urine RBC (0-2) HPF Urine WBC (0-5) HPF Ur Epithelial Cells (Negative) HPF Urine Crystals (Negative) HPF Urine Bacteria (Negative) HPF Urine Mucus (Negative) Ur Culture Indicated? Urine Glucose (Negative) mg/dL COVID-19 Source SARS-CoV-2 (PCR) (Negative) Influenza Type A (PCR) (Negative) Influenza Type B (PCR) (Negative) RSV (PCR) (Negative) Quality:SDOH Health Related Social Needs: Health related social needs education (Z55.6) PFSH All Active Problems (Updated 07/31/24 @ 21:17 by Ferdinand Duncan) Hyponatremia (Acute) Hyponatremia (Acute) Traumatic ecchymosis of chest (Acute) Acute hyperglycemia (Acute) Anemia in CKD (chronic kidney disease) (Chronic) HCAP (healthcare-associated pneumonia) (Acute) Closed fracture of left proximal humerus (Acute 06/18/23) Abnormal ankle brachial index (Acute) Concussion (Acute) Ganglion of left wrist (Acute) S/P Excision: 07/30/2021 Cyst (Acute) Right shoulder PAD (peripheral artery disease) (Chronic) Infected sebaceous cyst of skin (Acute) Former smoker (Acute) 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) COVID-19 (Acute) 05/2021 Sebaceous cyst (Acute) Contusion of left knee (Acute) Leg wound, left (Acute) Medical History Heart failure with recovered ejection fraction (HFrecEF) Infected animal bite of lower leg 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 Surgical History History of incision and drainage (~09/2022) left lower leg I&D after laceration S/P cardiac cath stent placed 4 month ago Hx of removal of cyst (~07/20/21) upper left chest back excision of melanoma on arm. Trigger Finger release (03/29/11) LEFT THUMB Stent placement LE for intermittent claudication Oophrectomy, Both Abdominal hysterectomy (~2001) Carotid endarterectomy bilateral. Social History Smoking/Tobacco Use Status: Current every day Tobacco Type: cigarettes Smoking risk assessment performed?: Yes Alcohol Intake: current Alcohol Intake frequency: a few times a week Alcohol type: hard liquor Drug use: Never Substance use type: does not use Housing: apartment Current gender identity: female Do you feel safe at home: Yes Do you feel safe in your relationship?: Yes PAWSS Have you Been Recently Intoxicated or Drunk Within the Last 30 days?: No Have you Ever Experienced Previous Episodes of Alcohol Withdrawal?: No Have you ever Experienced Withdrawal Seizures?: No Have you ever Experienced Delirium Tremens(DT)s?: No Have you ever undergone Alcohol Rehabilitation Treatment (i.e, inpt ot outpatient treatment programs)?: No Have you ever Experienced Blackouts?: No Have you ever Combined Alcohol with other Downers within the last 90 days?: No Have you ever Combined Alcohol with any other Substance of Abuse during the last 90 days?: No Positive Blood Alcohol level on Presentation? [PCS.BAL]: No Evidence of Increased Autonomic Activity (i.e. HR>120, tremor, sweating, agitation, nausea)?: No Result: 0
[2024-07-31 18:54] LABS: Bilirubin Negative (Negative); Blood Trace-intact (Negative); Clarity Clear (Clear); Glucose Negative (Negative); Ketones Negative (Negative); Leukocyte Esterase Negative (Negative); Nitrite Negative (Negative); Specific Gravity 1.015 (1.005-1.025); Urobilinogen 0.2 mg/dL (Up to 0.2)
[2024-07-31 19:03] LABS: WBC Negative HPF (0-5)
[2024-07-31 19:04] LABS: Bacteria Rare HPF (Negative); C & S Indicated? No; Crystals Negative HPF (Negative); Epithelial Cells Rare HPF (Negative); Mucus Trace (Negative)
[2024-07-31 20:01] LABS: Troponin I 12 ng/L (<or=51)
--- NOTE | 2024-07-31 20:15 | RT.EKG_ITS ---
APPROVED REPORT Exam: Resting ECG Reason for Exam: hyperkalemia Patient Location: E HR:63 bpm ECG Measurements Heart Rate 63 AXIS MT 198 P 72 QRSd 100 QRS -23 QT 445 T 41 QTc 457 Conclusion Sinus rhythm...normal P axis, V-rate 60- 99 Atrial premature complexes in couplets...pair SV complexes w/ short R-R Sinus Rhythm. PAC. No significant change fro prior. 07/31/24. WD
[2024-07-31 20:16] LABS: Anion Gap 6.3 mmol/L (3-11); BUN 21 mg/dL (7-18); CO2 27.7 mmol/L (21.0-32.0); CREATININE 1.6 mg/dL (0.55-1.02); Calcium 8.3 mg/dL (8.5-10.1); Chloride 86 mmol/L (98-107); Estimated GFR 35.57 (mL/min/1.73m2); Glucose 307 mg/dL (74-106); Potassium 5.9 mmol/L (3.5-5.1)
[2024-07-31 20:19] LABS: Sodium 120 mmol/L (136-145)
[2024-07-31 20:47] LABS: Anion Gap 5.1 mmol/L (3-11); BUN 22 mg/dL (7-18); CO2 26.9 mmol/L (21.0-32.0); CREATININE 1.6 mg/dL (0.55-1.02); Calcium 8.4 mg/dL (8.5-10.1); Chloride 87 mmol/L (98-107); Estimated GFR 35.57 (mL/min/1.73m2); Glucose 336 mg/dL (74-106); Potassium 5.9 mmol/L (3.5-5.1)
[2024-07-31 20:52] LABS: Sodium 119 mmol/L (136-145)
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
[2024-07-31 21:35] LABS: ETHANOL BLOOD < 3.0 mg/dL (<10)
[2024-07-31] MEDS: Sodium Zirconium Cyclosilicate 10 GM PKT PO (21:38)
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
[2024-07-31 22:54] LABS: Anion Gap 2.4 mmol/L (3-11); BUN 23 mg/dL (7-18); CO2 29.6 mmol/L (21.0-32.0); CREATININE 1.7 mg/dL (0.55-1.02); Calcium 8.2 mg/dL (8.5-10.1); Chloride 87 mmol/L (98-107); Estimated GFR 33.07 (mL/min/1.73m2); Glucose 354 mg/dL (74-106); Potassium 5.5 mmol/L (3.5-5.1)
[2024-07-31 22:59] LABS: Sodium 119 mmol/L (136-145)
[2024-07-31 23:04] LABS: Prothrombin Time 9.8 sec (9.1-11.1)
[2024-07-31 23:06] LABS: *AMPHETAMINES SCREEN URINE Negative (Negative); *BARBITURATES SCREEN URINE Negative (Negative); *BENZODIAZEPINES SCREEN URINE Negative (Negative); Cannabinoids THC Negative (Negative); Cocaine Screen,Urine Negative (Negative); METHADONE URINE SCREEN Negative (Negative); OPIATES URINE SCREEN Negative (Negative)
[2024-07-31 23:07] LABS: Tricyclic Antidepressants Negative (Negative)
[2024-07-31] MEDS: SODIUM CHLORIDE 3% 500 ML 30 ML IV INF (23:54)
[2024-08-01] VITALS (84 sets, daily range): BP systolic 105–175; BP diastolic 36–103; PULSE 53–91; RESP 0–27; TEMP 36.4–37.4; O2SAT 84–97
--- NOTE | 2024-08-01 00:07 | RESPIRATORY ---
Pt brought in her home cpap, auto 12-18 for nocturnal use. Sterile water in chamber.
[2024-08-01] MEDS: Insulin Aspart 300 UNITS/3 ML PEN SC ×6 (00:59→14:30)
[2024-08-01] MEDS: Insulin Glargine 300 UNITS/3 ML PEN 15 UNITS SC (01:04)
[2024-08-01 02:47] LABS: Anion Gap 9.2 mmol/L (3-11); BUN 27 mg/dL (7-18); CO2 24.8 mmol/L (21.0-32.0); CREATININE 1.7 mg/dL (0.55-1.02); Calcium 8.3 mg/dL (8.5-10.1); Chloride 88 mmol/L (98-107); Estimated GFR 33.07 (mL/min/1.73m2); Glucose 474 mg/dL (74-106); Potassium 5.5 mmol/L (3.5-5.1)
[2024-08-01 02:58] LABS: Sodium 122 mmol/L (136-145)
[2024-08-01] MEDS: Levothyroxine 175 MCG TAB PO (05:50)
[2024-08-01 07:07] LABS: HCT 30.3 % (36.0-46.0); HGB 10.6 g/dL (11.2-15.7); MCH 32.9 pg (27.0-33.0); MCV 94 fL (80-95); MPV 9.4 fL (8.0-11.0); Platelet Count 268 10^3/uL (130-400); RBC 3.22 10^6/uL (3.93-5.22); RDW 13.1 % (11.7-14.6); RDW-SD 45.5 fL
[2024-08-01 07:34] LABS: ALT 19 U/L (14-59); AST 28 U/L (15-37); Albumin 2.4 g/dL (3.4-5.0); Alkaline Phosphatase 137 U/L (46-116); Anion Gap 10.6 mmol/L (3-11); BUN 27 mg/dL (7-18); Bilirubin, Total 0.5 mg/dL (0.2-1.0); CO2 24.4 mmol/L (21.0-32.0); CREATININE 1.7 mg/dL (0.55-1.02); Calcium 8.3 mg/dL (8.5-10.1); Chloride 90 mmol/L (98-107); Estimated GFR 33.07 (mL/min/1.73m2); Glucose 480 mg/dL (74-106); Potassium 5.2 mmol/L (3.5-5.1); Sodium 125 mmol/L (136-145); Total Protein 5.2 g/dL (6.4-8.2)
[2024-08-01] MEDS: Carvedilol 12.5 MG TAB PO ×2 (08:38→17:02)
[2024-08-01] MEDS: Sacubitril/Valsartan 24 mg/26 mg TAB 1 EACH PO ×2 (08:38→19:15)
[2024-08-01] MEDS: Aspirin E.C. 81 MG TABEC PO (08:38)
[2024-08-01] MEDS: Cholecalciferol (Vitamin D3) 1,000 UNIT TAB 1000 UNITS PO (08:38)
[2024-08-01] MEDS: Apixaban 5 MG TAB PO ×2 (08:38→19:15)
[2024-08-01] MEDS: Furosemide 20 MG TAB PO (08:38)
[2024-08-01] MEDS: Clopidogrel 75 MG TAB PO (08:38)
[2024-08-01] MEDS: Ferrous Gluconate 324 MG TAB PO (08:38)
[2024-08-01] MEDS: Pantoprazole 40 MG TABCR PO ×2 (08:38→17:02)
[2024-08-01] MEDS: amLODIPine 5 MG TAB PO (08:39)
[2024-08-01] MEDS: Normal Saline Flush 10 ML SYR IVP ×3 (08:42→19:14)
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
[2024-08-01] MEDS: Mylanta Suspension 30 ML CUP PO (10:03)
[2024-08-01 10:47] LABS: Anion Gap 13.9 mmol/L (3-11); BUN 31 mg/dL (7-18); CO2 21.1 mmol/L (21.0-32.0); CREATININE 1.8 mg/dL (0.55-1.02); Calcium 8.5 mg/dL (8.5-10.1); Chloride 90 mmol/L (98-107); Estimated GFR 30.88 (mL/min/1.73m2); Potassium 5.3 mmol/L (3.5-5.1); Sodium 125 mmol/L (136-145)
[2024-08-01 10:51] LABS: Glucose 684 mg/dL (74-106)
--- NOTE | 2024-08-01 13:12 | PGE_ITS ---
Date of Service Date of service: 08/01/24 Time of Service: 13:13 Assessment and Plan Assessment and plan (1) Hyponatremia: Start date: 07/31/24 Status: Acute Assessment and plan: Euvolemic, see below. Symptoms improved, Na now 6 mEq above samantha, goal for first 24hr is around 8, no more than 10. Continue slow 3% saline infusion. (2) SIADH (syndrome of inappropriate ADH production): Status: Acute Assessment and plan: Looking back over the record she has euvolemic AHD, urine osmolality >100, urine sodium >40. TSH only mildly abnormal and cortisol and ACTH stim testing not c/w adrenal insufficiency. No longer on thiazides. This is c/w SIADH Alcohol use likely also contributing. She was on high dose citalopram, recently reduced from 40mg to 20mg by PCP. Will change to 10mg of escitalopram, should have the same clinical effect with less adverse effects including SIADH. On salt tablets at low dose as outpatient. Could combine with loop diuretic. She would be candidate for vaptan therapy or urea, but would generally defer this to nephrology. (3) Hyperkalemia: Status: Acute Assessment and plan: With CKD in setting of MRA and ARNI therapy. MRA not on our home list but on PCP list. HOlding spironolactone 25mg. Will also hold ARNI until K+ down Continue oral binder. (4) PAD (peripheral artery disease): Status: Chronic Assessment and plan: Continue outpatient medical therapy with anticoagulation and aspirin (not clopidogrel per PCP record which is appropriate) therapy. Watch for bleeding or bruising. (5) Diabetes mellitus type 1: Assessment and plan: Continue glargine and start moderate sliding scale insulin coverage for glucometers before meals and at bedtime. Sugars have been quite high so titrat ing. (6) Heart failure with recovered ejection fraction (HFrecEF): Assessment and plan: Continue outpatient medical therapy adjusting the patient hypertensive presently, but hold spironolactone withy hyperkalemia. (7) COPD (chronic obstructive pulmonary disease): Assessment and plan: Continue outpatient medical therapy with nebulizers as needed. Patient is not asking for nicotine patch and she does continue to smoke daily. (8) Hypothyroidism: Assessment and plan: TSH is elevated and this appears to be just recently with patient to reassess supplement dosing with PCP. Free T4 okay. There is no reason for immediate change in therapy. (9) CKD (chronic kidney disease) stage 4, GFR 15-29 ml/min: Assessment and plan: stable at baseline (10) MANISH (obstructive sleep apnea): Status: Chronic Assessment and plan: Home CPAP at home with home settings. Subjective Subjective Patient reports: feels better and tolerating a regular diet; denies diarrhea, nausea, vomiting, shortness of breath or fever Interval history since last seen: Events: On 3% saline at 30ml/hr overnight. She feels much better, back to herself. No longer any malaise, dizziness, or headaches. She is hungry. She denies any changes to her medications recently or drinking excessive fluids. Objective Last Vital Signs Temp 37.4 C 08/01/24 08:44 Pulse 65 08/01/24 11:01 Resp 9 L 08/01/24 11:01 BP 147/53 H 08/01/24 11:01 Pulse Ox 97 08/01/24 11:01 Laboratory Results - last 24 hr 07/31/24 07/31/24 07/31/24 16:15 16:18 17:05 WBC 4.29 L RBC 3.44 L Hgb 11.1 L Hct 31.9 L MCV 93 MCH 32.3 MCHC 34.8 RDW 12.7 Plt Count 262 MPV 8.9 Immature Gran % 0.2 Neutrophils % 64.6 Lymphocytes % 24.2 Monocytes % 8.9 Eosinophils % 1.4 Basophils % 0.7 Nucleated RBC % 0.0 Absolute Neutrophils 2.77 Absolute Lymphocytes 1.04 L Absolute Monocytes 0.38 Absolute Eosinophils 0.06 Absolute Basophils 0.03 PT INR VBG Lactate 1.3 Sodium 123 L* Potassium 4.5 Chloride 87 L Carbon Dioxide 29.4 Anion Gap 6.6 BUN 20 H Creatinine 1.4 H Est GFR (CKD-EPI 2020) 41.75 Glucose 61 L Calcium 8.6 Magnesium 2.4 Total Bilirubin 0.4 Conjugated Bilirubin 0.2 AST 33 ALT 22 Alkaline Phosphatase 146 H Ammonia 13 Troponin I 14 15 Total Protein 6.0 L Albumin 2.8 L Lipase 29 TSH 11.17 H Free T4 1.09 Urine Color Urine Clarity Urine pH Ur Specific [place] Urine Protein Urine Ketones Urine Blood Urine Nitrite Urine Bilirubin Urine Urobilinogen Ur Leukocyte Esterase Urine RBC Urine WBC Ur Epithelial Cells Urine Crystals Urine Bacteria Urine Mucus Ur Culture Indicated? Urine Osmolality Urine Glucose Urine Opiates Screen Urine Methadone Screen Ur Barbiturates Screen Ur Tricyclics Screen Ur Amphetamines Screen U Benzodiazepines Scrn Urine Cocaine Screen Ur THC Screen Ethyl Alcohol COVID-19 Source Nasopharynx SARS-CoV-2 (PCR) Negative Influenza Type A (PCR) Negative Influenza Type B (PCR) Negative RSV (PCR) Negative 07/31/24 07/31/24 07/31/24 17:54 19:01 19:38 WBC RBC Hgb Hct MCV MCH MCHC RDW Plt Count MPV Immature Gran % Neutrophils % Lymphocytes % Monocytes % Eosinophils % Basophils % Nucleated RBC % Absolute Neutrophils Absolute Lymphocytes Absolute Monocytes Absolute Eosinophils Absolute Basophils PT INR VBG Lactate Sodium Cancelled Potassium Cancelled Chloride Cancelled Carbon Dioxide Cancelled Anion Gap Cancelled BUN Cancelled Creatinine Cancelled Est GFR (CKD-EPI 2020) Cancelled Glucose Cancelled Calcium Cancelled Magnesium Total Bilirubin Conjugated Bilirubin AST ALT Alkaline Phosphatase Ammonia Troponin I 12 Total Protein Albumin Lipase TSH Free T4 Urine Color Yellow Urine Clarity Clear Urine pH 7.0 Ur Specific [place] 1.015 Urine Protein >=300 H Urine Ketones Negative Urine Blood Trace-intact H Urine Nitrite Negative Urine Bilirubin Negative Urine Urobilinogen 0.2 Ur Leukocyte Esterase Negative Urine RBC 3-5 H Urine WBC Negative Ur Epithelial Cells Rare Urine Crystals Negative Urine Bacteria Rare Urine Mucus Trace Ur Culture Indicated? No Urine Osmolality Cancelled Urine Glucose Negative Urine Opiates Screen Negative Urine Methadone Screen Negative Ur Barbiturates Screen Negative Ur Tricyclics Screen Negative Ur Amphetamines Screen Negative U Benzodiazepines Scrn Negative Urine Cocaine Screen Negative Ur THC Screen Negative Ethyl Alcohol COVID-19 Source SARS-CoV-2 (PCR) Influenza Type A (PCR) Influenza Type B (PCR) RSV (PCR) 07/31/24 07/31/24 07/31/24 19:53 20:26 22:30 WBC RBC Hgb Hct MCV MCH MCHC RDW Plt Count MPV Immature Gran % Neutrophils % Lymphocytes % Monocytes % Eosinophils % Basophils % Nucleated RBC % Absolute Neutrophils Absolute Lymphocytes Absolute Monocytes Absolute Eosinophils Absolute Basophils PT INR VBG Lactate Sodium 120 L* 119 L* 119 L* Potassium 5.9 H D 5.9 H 5.5 H Chloride 86 L 87 L 87 L Carbon Dioxide 27.7 26.9 29.6 Anion Gap 6.3 5.1 2.4 L BUN 21 H 22 H 23 H Creatinine 1.6 H 1.6 H 1.7 H Est GFR (CKD-EPI 2020) 35.57 35.57 33.07 Glucose 307 H 336 H 354 H Calcium 8.3 L 8.4 L 8.2 L Magnesium Total Bilirubin Conjugated Bilirubin AST ALT Alkaline Phosphatase Ammonia Troponin I Total Protein Albumin Lipase TSH Free T4 Urine Color Urine Clarity Urine pH Ur Specific [place] Urine Protein Urine Ketones Urine Blood Urine Nitrite Urine Bilirubin Urine Urobilinogen Ur Leukocyte Esterase Urine RBC Urine WBC Ur Epithelial Cells Urine Crystals Urine Bacteria Urine Mucus Ur Culture Indicated? Urine Osmolality Urine Glucose Urine Opiates Screen Urine Methadone Screen Ur Barbiturates Screen Ur Tricyclics Screen Ur Amphetamines Screen U Benzodiazepines Scrn Urine Cocaine Screen Ur THC Screen Ethyl Alcohol < 3.0 COVID-19 Source SARS-CoV-2 (PCR) Influenza Type A (PCR) Influenza Type B (PCR) RSV (PCR) 07/31/24 08/01/24 08/01/24 22:48 02:25 05:40 WBC 4.70 RBC 3.22 L Hgb 10.6 L Hct 30.3 L MCV 94 MCH 32.9 MCHC 35.0 RDW 13.1 Plt Count 268 MPV 9.4 Immature Gran % Neutrophils % Lymphocytes % Monocytes % Eosinophils % Basophils % Nucleated RBC % Absolute Neutrophils Absolute Lymphocytes Absolute Monocytes Absolute Eosinophils Absolute Basophils PT 9.8 INR 1.0 VBG Lactate Sodium 122 L* 125 L Potassium 5.5 H 5.2 H Chloride 88 L 90 L Carbon Dioxide 24.8 24.4 Anion Gap 9.2 10.6 BUN 27 H 27 H Creatinine 1.7 H 1.7 H Est GFR (CKD-EPI 2020) 33.07 33.07 Glucose 474 H 480 H Calcium 8.3 L 8.3 L Magnesium Total Bilirubin 0.5 Conjugated Bilirubin AST 28 ALT 19 Alkaline Phosphatase 137 H Ammonia Troponin I Total Protein 5.2 L Albumin 2.4 L Lipase TSH Free T4 Urine Color Urine Clarity Urine pH Ur Specific [place] Urine Protein Urine Ketones Urine Blood Urine Nitrite Urine Bilirubin Urine Urobilinogen Ur Leukocyte Esterase Urine RBC Urine WBC Ur Epithelial Cells Urine Crystals Urine Bacteria Urine Mucus Ur Culture Indicated? Urine Osmolality Urine Glucose Urine Opiates Screen Urine Methadone Screen Ur Barbiturates Screen Ur Tricyclics Screen Ur Amphetamines Screen U Benzodiazepines Scrn Urine Cocaine Screen Ur THC Screen Ethyl Alcohol COVID-19 Source SARS-CoV-2 (PCR) Influenza Type A (PCR) Influenza Type B (PCR) RSV (PCR) 08/01/24 08/01/24 06:25 10:15 WBC RBC Hgb Hct MCV MCH MCHC RDW Plt Count MPV Immature Gran % Neutrophils % Lymphocytes % Monocytes % Eosinophils % Basophils % Nucleated RBC % Absolute Neutrophils Absolute Lymphocytes Absolute Monocytes Absolute Eosinophils Absolute Basophils PT INR VBG Lactate Sodium Cancelled 125 L Potassium Cancelled 5.3 H Chloride Cancelled 90 L Carbon Dioxide Cancelled 21.1 Anion Gap Cancelled 13.9 H BUN Cancelled 31 H Creatinine Cancelled 1.8 H Est GFR (CKD-EPI 2020) Cancelled 30.88 Glucose Cancelled 684 H* Calcium Cancelled 8.5 Magnesium Total Bilirubin Conjugated Bilirubin AST ALT Alkaline Phosphatase Ammonia Troponin I Total Protein Albumin Lipase TSH Free T4 Urine Color Urine Clarity Urine pH Ur Specific [place] Urine Protein Urine Ketones Urine Blood Urine Nitrite Urine Bilirubin Urine Urobilinogen Ur Leukocyte Esterase Urine RBC Urine WBC Ur Epithelial Cells Urine Crystals Urine Bacteria Urine Mucus Ur Culture Indicated? Urine Osmolality Urine Glucose Urine Opiates Screen Urine Methadone Screen Ur Barbiturates Screen Ur Tricyclics Screen Ur Amphetamines Screen U Benzodiazepines Scrn Urine Cocaine Screen Ur THC Screen Ethyl Alcohol COVID-19 Source SARS-CoV-2 (PCR) Influenza Type A (PCR) Influenza Type B (PCR) RSV (PCR) PAWSS Have you Been Recently Intoxicated or Drunk Within the Last 30 days?: No Have you Ever Experienced Previous Episodes of Alcohol Withdrawal?: No Have you ever Experienced Withdrawal Seizures?: No Have you ever Experienced Delirium Tremens(DT)s?: No Have you ever undergone Alcohol Rehabilitation Treatment (i.e, inpt ot outpatient treatment programs)?: No Have you ever Experienced Blackouts?: No Have you ever Combined Alcohol with other Downers within the last 90 days?: No Have you ever Combined Alcohol with any other Substance of Abuse during the last 90 days?: No Positive Blood Alcohol level on Presentation? [PCS.BAL]: No Evidence of Increased Autonomic Activity (i.e. HR>120, tremor, sweating, agitation, nausea)?: No Result: 0 Time Spent with Patient Time Spent with Patient: >50 minutes Time was spent: preparing to see the patient(eg.review tests), obtaining and/or reviewing separately otained hiistory, ordering medications,tests, procedures, referring, communicating with other health career services manager, indepentently interpreting results, counseling the patient and care coordination
--- NOTE | 2024-08-01 14:28 | CHAPLAIN ---
Casandra was in bed when I visited. She was pleasant and easily engaged in conversation. She said she is feeling better than yesterday, and a bit overwhelmed by all the staff people coming and going in her room. 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 I explained my role and offered support.
[2024-08-01 14:45] LABS: Anion Gap 19.4 mmol/L (3-11); BUN 34 mg/dL (7-18); CO2 17.6 mmol/L (21.0-32.0); Calcium 8.5 mg/dL (8.5-10.1); Chloride 89 mmol/L (98-107); Estimated GFR 27.21 (mL/min/1.73m2); Potassium 4.9 mmol/L (3.5-5.1); Sodium 126 mmol/L (136-145)
[2024-08-01 14:51] LABS: Glucose 692 mg/dL (74-106)
[2024-08-01] MEDS: INSULIN REGULAR IN 0.9 % NACL 100 UNIT/100 ML BAG 7 UNIT IVINF (17:02)
[2024-08-01 17:48] LABS: Glucose 704 mg/dL (74-106)
[2024-08-01 18:37] LABS: Osmolality Serum 250 mOsm/kg (275-295)
[2024-08-01] MEDS: Normal Saline 1,000 ML 1000 ML IV (18:59)
[2024-08-01] MEDS: Insulin Glargine 300 UNITS/3 ML PEN 20 UNITS SC (19:14)
[2024-08-01] MEDS: Magnesium Oxide 400 MG TAB PO (19:15)
[2024-08-01] MEDS: Escitalopram 10 MG TAB PO (19:15)
[2024-08-01] MEDS: Rosuvastatin 10 MG TAB PO (19:15)
[2024-08-01 19:24] LABS: Glucose 629 mg/dL (74-106)
[2024-08-01 20:43] LABS: Anion Gap 12.9 mmol/L (3-11); BUN 36 mg/dL (7-18); CO2 21.1 mmol/L (21.0-32.0); CREATININE 2.1 mg/dL (0.55-1.02); Chloride 94 mmol/L (98-107); Estimated GFR 25.67 (mL/min/1.73m2); Potassium 4.3 mmol/L (3.5-5.1); Sodium 128 mmol/L (136-145)
[2024-08-01 20:44] LABS: Glucose 547 mg/dL (74-106)
[2024-08-01] MEDS: Normal Saline 1,000 ML 125 ML IV (22:00)
[2024-08-01 22:02] LABS: Anion Gap 11.8 mmol/L (3-11); BUN 36 mg/dL (7-18); CO2 23.2 mmol/L (21.0-32.0); CREATININE 2.1 mg/dL (0.55-1.02); Calcium 8.3 mg/dL (8.5-10.1); Chloride 95 mmol/L (98-107); Estimated GFR 25.67 (mL/min/1.73m2); Glucose 486 mg/dL (74-106); Potassium 4.2 mmol/L (3.5-5.1); Sodium 130 mmol/L (136-145)
[2024-08-02] VITALS (14 sets, daily range): BP systolic 122–151; BP diastolic 49–64; PULSE 57–87; RESP 10–24; TEMP 36.4–37; O2SAT 93–98
[2024-08-02 00:38] LABS: Anion Gap 7.4 mmol/L (3-11); BUN 37 mg/dL (7-18); CO2 26.6 mmol/L (21.0-32.0); CREATININE 2.2 mg/dL (0.55-1.02); Calcium 8.3 mg/dL (8.5-10.1); Chloride 95 mmol/L (98-107); Estimated GFR 24.27 (mL/min/1.73m2); Glucose 400 mg/dL (74-106); Sodium 129 mmol/L (136-145)
[2024-08-02 04:26] LABS: Magnesium 2.3 mg/dL (1.8-2.4)
[2024-08-02 04:32] LABS: ALT 17 U/L (14-59); AST 17 U/L (15-37); Albumin 2.2 g/dL (3.4-5.0); Alkaline Phosphatase 122 U/L (46-116); Anion Gap 6.6 mmol/L (3-11); BUN 35 mg/dL (7-18); Bilirubin, Total 0.3 mg/dL (0.2-1.0); CO2 28.4 mmol/L (21.0-32.0); CREATININE 1.8 mg/dL (0.55-1.02); Calcium 8.1 mg/dL (8.5-10.1); Chloride 99 mmol/L (98-107); Estimated GFR 30.88 (mL/min/1.73m2); Glucose 165 mg/dL (74-106); Potassium 3.5 mmol/L (3.5-5.1); Sodium 134 mmol/L (136-145); Total Protein 4.8 g/dL (6.4-8.2)
[2024-08-02] MEDS: Levothyroxine 175 MCG TAB PO (05:27)
[2024-08-02] MEDS: Normal Saline 1,000 ML 125 ML IV (05:28)
[2024-08-02] MEDS: Dextrose 50%-Water 25 GM/50 ML SYR IVP (06:25)
[2024-08-02] MEDS: Cholecalciferol (Vitamin D3) 1,000 UNIT TAB 1000 UNITS PO (08:19)
[2024-08-02] MEDS: Pantoprazole 40 MG TABCR PO (08:19)
[2024-08-02] MEDS: amLODIPine 5 MG TAB PO (08:19)
[2024-08-02] MEDS: Apixaban 5 MG TAB PO (08:19)
[2024-08-02] MEDS: Aspirin E.C. 81 MG TABEC PO (08:19)
[2024-08-02] MEDS: Furosemide 20 MG TAB PO (08:19)
[2024-08-02] MEDS: Carvedilol 12.5 MG TAB PO (08:19)
[2024-08-02] MEDS: Sacubitril/Valsartan 24 mg/26 mg TAB 1 EACH PO (08:19)
[2024-08-02] MEDS: Normal Saline Flush 10 ML SYR IVP (08:20)
[2024-08-02] MEDS: Ferrous Gluconate 324 MG TAB PO (08:20)
[2024-08-02] MEDS: Insulin Aspart 300 UNITS/3 ML PEN SC (08:26)
[2024-08-02] MEDS: Insulin Aspart 300 UNITS/3 ML PEN 10 UNITS SC ×2 (08:27→13:48)
--- NOTE | 2024-08-02 12:53 | IN_ITS ---
PT Notes Visit Reasons: hyponatremia,hyperkalemia,IDDM w/CKD,alcohol use Physical Therapy Inpatient Initial Evaluation Date: 08/02/2024 Referring Doctor: Ferdinand Duncan MD PT Orders: PT CONSULT: D/C Non PT-Dependent Precautions: Fall. Standard. Activity as tolerated. Patient Profile/Admitting Diagnosis: Casandra is a 63-year-old female admitted for management of hyponatremia, SIADH, PAD, and HFrecEF, COPD, hypothyroidism, hyperlipidemia, and MANISH. She came in to the ED on 07/31/2024 with confusion, generalized weakness, and difficulty holding head up. PMHX: All Active Problems (Updated 08/01/24 @ 02:00 by Ferdinand Duncan) MANISH (obstructive sleep apnea) (Chronic) Hyponatremia (Acute) Hyponatremia (Acute) Traumatic ecchymosis of chest (Acute) Acute hyperglycemia (Acute) Anemia in CKD (chronic kidney disease) (Chronic) HCAP (healthcare-associated pneumonia) (Acute) Closed fracture of left proximal humerus (Acute 06/18/23) Abnormal ankle brachial index (Acute) Concussion (Acute) Ganglion of left wrist (Acute) S/P Excision: 07/30/2021yst (Acute) Right shoulder PAD (peripheral artery disease) (Chronic) Infected sebaceous cyst of skin (Acute) Former smoker (Acute) 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 note Hypothyroidism Hyperlipidemia Benign hypertension 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 Surgical History History of incision and drainage (~09/2022) left lower leg I&D after lacerationS/P cardiac cath stent placed 4 month ago Hx of removal of cyst (~07/20/21) upper left chest backexcision of melanoma on arm. Trigger Finger release (03/29/11) LEFT THUMB Stent placement LE for intermittent claudicationOophrectomy, Both Abdominal hysterectomy (~2001) Carotid endarterectomy bilateral. Social History/Home Situation: Lives with in a private home with 4 steps to enter with rail on the L side going up. Home care provider contracted with [facility]. Independent with all aspects of ADLs prior to admission. Equipment Owned/DME: FWW, SPC Subjective: Agreeable to trying out walking in hallway today. Did not complain of any significant shortness of breath, headache, and lightheadedness while navigating [employer] hallway. CYNTHIA Tijerina provided wheelchair follow for safety. Objective: General Observation: Resting in bed. Telemetry monitoring in place. CPAP mask on. Mental Status: Alert and oriented as to person, place, time, and purpose. Able to pay attention, focus, and respond appropriately. Pain: None reported Vital Signs: WNL during waling activity ROM: Right Upper Extremity: Shoulder Flexion WFL. Shoulder abduction WFL. Elbow flexion WFL. Wrist flexion WFL. Functional opening and closing of hand WFL. Left Upper Extremity: Shoulder Flexion WFL. Shoulder abduction WFL. Elbow flexion WFL. Wrist flexion WFL. Functional opening and closing of hand WFL. Right Lower Extremity: Hip flexion WFL. Hip abduction WFL. Knee flexion WFL. Ankle dorsiflexion WFL. Ankle plantarflexion WFL. Left Lower Extremity: Hip flexion WFL. Hip abduction WFL. Knee flexion WFL. Ankle dorsiflexion WFL. Ankle plantarflexion WFL. Strength: Right Upper Extremity: Shoulder flexors 4-/5. Shoulder abductors 4-/5. Elbow flexors 4-/5. Elbow extensors 4-/5. Supervisor Cutting Department strong. Left Upper Extremity: Shoulder flexors 4-/5. Shoulder abductors 4-/5. Elbow flexors 4-/5. Elbow extensors 4-/5. Supervisor Cutting [employer] strong. Right Lower Extremity: Hip flexors 4-/5. Hip abductors 4-/5. Knee flexors 4-/5. Knee extensors 3/5. Ankle dorsiflexors 4-/5. Ankle plantarflexors 4-/5. Left Lower Extremity: Hip flexors 4-/5. Hip abductors 4-/5. Knee flexors 4-/5. Knee extensors 3/5. Ankle dorsiflexors 4-/5. Ankle plantarflexors 4-/5. Bed Mobility/Transfers: Supine to sit supervision Sit to stand stand by assist with FWW Stand to sit stand by assist with FWW Gait: 300 feet with FWW with stand by assist only with telemtry numbers staying WNL throughout. Cueing done for directions only and AD management. No signifcant SOB. No LOB. Stairs: Negotiated 3 x 4-inch steps and 2 x 6-incj steps while holding onto B rails for support. [place] only for safety rechniques. Stand by assist. Balance: Static Sitting: Normal Dynamic Sitting: Normal Static Standing: Good Dynamic Standing: Fair Special Tests: Mobility Limitations Standardized Measure [facility] AM-PAC 6 clicks Basic Mobility Inpatient Short Form: Raw Score: 23 CMS Score: 11% deficit Informed Consent/Education: Patient was instructed in purpose of PT consult and was agreeable to proceed with session's goals. Assessment: Patient presents with clinical signs and symptoms consistent with current/admitting diagnoses that have resulted to mobility limitations, gait instability, generalized weakness, and overall ADL decline as demonstrated by the following impairment level findings: 1. Decreased strength to B UE/LE major muscle groups 2. Impaired sitting/standing balance 3. Impaired activity tolerance 4. Shortness of breath Impairments are contributing to the following functional limitations: 1. Difficulty with ambulation without assistive device 2. Increased completion time for mobility ADL performance 3. Increased risk for falls Patient is assessed as a 18769 moderate complexity based on the following: History: 63-year-old female with past medical history as indicated above Examination: Demonstrable impairment in strength, balance, and mobility level with underlying impairments and functional limitations as exhibited above as well as deficit score of % utilizing the [facility] Mobility Inpatient Short Form Presentation: Evolving Decision Makin moderate complexity Goals: N/A. PT evaluation and one session only for functional mobility training. Plan of Care/Treatment Plan: N/A. PT evaluation and one session only for functional mobility training. DISCHARGE RECOMMENDATIONS: [] Home with no services [] [X] Home with services. Patient will benefit from home health PT services in order to progress mobility level using least restrictive assistive ambulatory device, assess home safety, identify additional equipment needs, and establish a functional maintenance program that will increase ability of patient to remain at home. [] Home with outpatient PT [] [] SNF for continued rehabilitation [] [] Assisted Care [] [] SNF versus LTC based on ability to participate and progress [] TREATMENT CODE/TIME: 07666 x 22 minutes for 1 unit (12:53-13:15). Thank you for the opportunity to participate in the care of this patient. Vikki Garza PT, DPT, CLT [facility] [place], [place]
--- NOTE | 2024-08-02 13:49 | PDOC.CMDIS ---
Date of service: 08/02/24 Time of Service: 13:51 LACE Index Scoring Tool Questions: Length of Stay (in days): 2 Was the patient admitted via the E.D.?: Yes Comorbidities: Cerebrovascular Disease, Diabetes w/o Complication, Congestive Heart Failure, Any Tumor and Liver or Renal Disease E.D. Visits: 6 Answers: Total Score: 14 Risk of Readmission: High Risk Care Management Discharge Plan Reason for Hospitalization: hyponatremia Discharge Plan: Casandra is discharged home today with no new services. She declined an outpatient PT referral. Casandra will f/u with her PCP and continue per her discharge plan of care. Casandra will transport home in a private vehicle. Patient/Family Education Needs: Review of discharge instructions, activity, limitations and discuss ask me 3. SDOH Health Related Social Needs: Health related social needs education (Z55.6) Health related social needs details no needs voiced Health related social needs details: no needs voiced
--- NOTE | 2024-08-02 14:53 | W.PM.DS.N ---
Date of service: 08/02/24 Time of Service: 14:54 DS: Diagnosis Discharge Diagnosis (1) Hyponatremia: Status: Acute (2) SIADH (syndrome of inappropriate ADH production): Status: Acute (3) Hyperkalemia: Status: Acute (4) PAD (peripheral artery disease): Status: Chronic (5) Diabetes mellitus type 1: (6) Heart failure with recovered ejection fraction (HFrecEF): (7) COPD (chronic obstructive pulmonary disease): (8) Hypothyroidism: (9) CKD (chronic kidney disease) stage 4, GFR 15-29 ml/min: (10) MANISH (obstructive sleep apnea): Status: Chronic Discharge Plan Disposition Patient Disposition: Home Condition: Stable Discharge Details Reason For Visit: hyponatremia,hyperkalemia,IDDM w/CKD,alcohol use Admit Date/Time: 07/31/24 21:29 Admit Provider: Ferdinand Duncan Attending Provider: Ferdinand Duncan Primary Care Provider: Shirley Yu V Hospital Course Hospital Course: 63 yo F with history of recurrent hyponatremia, type 1 DM, CAD with HFimpEF on GDMT, hypothyroidism, MANISH, PAD on ASA/apixaban, history of head trauma with SAH who presented to the ED with genearl weakness and confusion. ED evaluation was significant for blood sugar of 61 and sodium of 123. Oddly despite supportive care in the ED with only 300ml of NS her serum sodium dropped to 119 and her potassium went from 3.3 to 5.9. She was started on 3% saline at 30/hr and Lokelma and admitted to the ICU. Her sodium improved to around 125 and she felt better and was eating and drinking by the next morning but her blood sugars became out of control 500s-700 and her anion gap widened as wide as 19.4. She was given a bolus of 1000ml and started on insulin drip 08/01. Her blood sugars improved and the anion gap closed and she was transtioned back to her basal/bolus insulin regimen by the morning of 07/23. Interestingly, her sodium normalized faster after stopping the 3% saline and giving more aggressive hydration. This suggests she was functionally hypovolemic even though she was not clearly clinically dehydrated on presentation. Given her development of early DKA, it was recommended she stop the SGLT2i empagliflozin for now. Her acute hyperkalemia may have been related to acidosis. But given the concern of hypovolemia and hyperkalemia the spironolactone was also stopped. Her beta sawyer and ARNI were continued and her blood pressure was well controlled at discharge. Work up for her hyponatremia was reviewed. It does look like she has SIADH. She had already cut her citalopram from 40mg to 20 with a plan to taper further. She denies depression or anxiety. She was changed to escitalopram 5mg thinking this would have less overall side effects with same therapeutic effects as 10mg citalopram. She may be a candidate for vaptan therapy as an outpatient. She has a referral for endocrinology pending. Ongoing fluid restriction, at least to 1500ml, was recommended. Her TSH was high but free thyroxine was normal. Levothyroxine dose was not changed. Clopidogrel was still on her list here but not on PCP list. She has no indcation for triple therapy. She is on ASA and apixaban for PAD and CAD, though just the DOAC may be sufficient with less bleeding risk. She was evaluated by PT and walked well with walker. Home health PT was recommended but she declined this or outpatient PT. She planned to resume her insulin pump as an outpatient PCP follow up: Basic metabolic panel in 3 days, then follow up with PCP early next week. Reconcile/review medications again Endocrinology referral as planned. Follow thyroid function Home Meds and New Rx's Prescriptions: New escitalopram oxalate 5 mg tablet 5 mg PO HS Qty: 30 0RF Rx Instructions: citalopram discontinued Continued rosuvastatin 10 mg tablet 10 mg PO DAILY cholecalciferol (vitamin D3) [Vitamin D3] 1,000 UNIT capsule 1,000 unit PO DAILY humalog pump 1 unit subcut 31/10 Patient Comments: Not set up yet albuterol sulfate 90 mcg/actuation HFA aerosol inhaler 2 puff inhalation Q6H PRN magnesium oxide 250 mg magnesium tablet 500 mg PO QPM ferrous gluconate 324 mg (37.5 mg iron) tablet 324 mg PO DAILY furosemide 20 mg tablet 20 mg PO DAILY aspirin 81 MG tablet,delayed release (DR/EC) 81 mg PO DAILY acetaminophen 500 mg tablet 1,000 mg PO Q8H PRN (Reason: pain) Qty: 60 3RF insulin aspart U-100 [Novolog U-100 Insulin aspart] 100 unit/mL solution 1.4 unit subcut TID Patient Comments: INJECT 1.4 UNITS CONTINUOUSLY WITH BOLUS BEFORE MEALS Dme 1 1.73 m2 SQ ONB PRN PRNQty: 50 0RF amlodipine 5 mg tablet 5 mg PO DAILY Patient Comments: TAKE ONE TABLET BY MOUTH EVERY DAY pantoprazole 40 mg tablet,delayed release (DR/EC) 40 mg PO BID Patient Comments: TAKE ONE TABLET BY MOUTH TWICE A DAY levothyroxine 175 mcg tablet 175 mcg PO DAILY Patient Comments: TAKE ONE TABLET BY MOUTH EVERY DAY Eliquis 5 mg tablet 5 mg PO BID Entresto 24-26 mg tablet 1 tab PO BID carvedilol 12.5 mg tablet 12.5 mg PO BID insulin glargine [Lantus Solostar U-100 Insulin] 100 unit/mL (3 mL) Insulin Pen 15 unit subcut HS Qty: 0 0RF Discontinued citalopram 20 mg tablet 40 mg PO HS clopidogrel 75 mg tablet 75 mg PO DAILY Jardiance 10 mg tablet 10 mg PO DAILY Patient Comments: TAKE ONE TABLET BY MOUTH EVERY DAY Discharge Instructions Instructions: Fluid restriction Additional Instructions: make sure you are no longer taking citalopram. We sent low dose escitalopram 5mg instead for now Stop Jardiance (empagliflozin) and stop spironolactone for now. You should also no longer be taking clopidogrel Follow up with Dr. Yu and the lightout examiner Avoid alcohol with your degree of medical illness Referrals: Shirley Yu MD [Primary Care Provider] - 08/13/24 10:00 am Activity:: Activity as Tolerated Equipment/Supplies:: No Equipment Needed Diet:: Carb Counting Discharge Orders Discharge Orders: Discharge Order (Routine); Ordered 08/02/24 Ordered By: Luisito Jovel DS: Summary Time Spent with Patient providing and/or coordinating discharge services: Greater than 30 minutes Status at Discharge Functional status at discharge: uses cane/walker Overall status at discharge: patient is back to baseline Mental Status: mental status grossly normal Speech and Movement: speech and movement normal Mood: congruent mood Affect: normal affect Quality:SDOH Health Related Social Needs: Health related social needs education (Z55.6) Health related social needs details no needs voiced Health related social needs details: no needs voiced Exam Narrative Exam Narrative: General: Alert and oriented, NAD, eating. Lungs: Fair aeration and clear to auscultation percussion Heart: Regular rate and rhythm with no murmur or gallop appreciated. Abdomen: Slightly obese contour, soft to palpation with no focalizing tenderness or guarding. Bowel sounds positive all quadrants. Extremities: Without clubbing, cyanosis or pitting edema Neuro: Cranial nerve II to XII grossly intact, no focal motor deficits and no tremor. Psych: Normal affect and mood. No abnormal thought processes. Psych Mental Status: mental status grossly normal Speech and Movement: speech and movement normal Mood: congruent mood Affect: normal affect DS: Data Vitals/I&O Vitals and I&O: Vital Signs Temperature 37.0 C 08/02/24 11:10 Temperature Source Temporal Artery Scan 08/02/24 11:10 Pulse 60 08/02/24 10:01 Pulse 60 08/02/24 10:01 Respiratory Rate 10 L 08/02/24 10:01 Respiratory Effort Normal 07/31/24 16:20 Respiratory Depth Normal 07/31/24 16:20 Respiratory Pattern Normal 07/31/24 16:20 Blood Pressure 125/58 L 08/02/24 10:01 Blood Pressure Mean 77 08/02/24 10:01 Blood Pressure Position Supine 07/31/24 22:27 Pulse Oximetry 97 08/02/24 10:01 Oxygen Delivery Method Room Air 08/01/24 16:31 Oxygen Flow Rate 0 08/01/24 16:31 Pain Level 36 08/01/24 16:31 Comment Prior Shift 08/02/24 10:01 Intake & Output 08/01/24 08/02/24 08/02/24 23:59 11:59 23:59 Intake Total 1986.483 / 2806.483 1606.733 / 1626.733 20 / 1626.733 Output Total 1949 / 3200 700 / 700 Balance 36.483 / -393.517 906.733 / 926.733 20 / 926.733 Weight 74 kg Intake: IV 1546.483 / 6722.721 9279.733 / 1386.733 20 / 1386.733 Oral 440 / 1260 240 / 240 Output: Urine 1950 / 3200 700 / 700 Other: Urine Color Yellow Yellow Urine Appearance Clear Clear Urine Odor Normal Comment mixed in stool Stool Size Large Moderate Stool Characteristics Formed Formed Brown Data Completed and Pending Labs on day of discharge: Labs from last 24 hours 0408/02/24 08/02/24 03:58 03:55 00:05 Sodium 134 L Cancelled 129 L Potassium 3.5 Cancelled 4.0 Chloride 99 Cancelled 95 L Carbon Dioxide 28.4 Cancelled 26.6 Anion Gap 6.6 Cancelled 7.4 BUN 35 H Cancelled 37 H Creatinine 1.8 H Cancelled 2.2 H Est GFR (CKD-EPI 2020) 30.88 Cancelled 24.27 Glucose 165 H Cancelled 400 H Serum Osmolality Calcium 8.1 L Cancelled 8.3 L Magnesium 2.3 Total Bilirubin 0.3 AST 17 ALT 17 Alkaline Phosphatase 122 H Total Protein 4.8 L Albumin 2.2 L Urine Color Urine Clarity Urine pH Ur Specific [place] Urine Protein Urine Ketones Urine Blood Urine Nitrite Urine Bilirubin Urine Urobilinogen Ur Leukocyte Esterase Urine Glucose 08/01/24 08/01/24 08/01/24 21:40 20:18 18:58 Sodium 130 L 128 L Potassium 4.2 4.3 Chloride 95 L 94 L Carbon Dioxide 23.2 21.1 Anion Gap 11.8 H 12.9 H BUN 36 H 36 H Creatinine 2.1 H 2.1 H Est GFR (CKD-EPI 2020) 25.67 25.67 Glucose 486 H 547 H* 629 H* Serum Osmolality Calcium 8.3 L 8.0 L Magnesium Total Bilirubin AST ALT Alkaline Phosphatase Total Protein Albumin Urine Color Urine Clarity Urine pH Ur Specific [place] Urine Protein Urine Ketones Urine Blood Urine Nitrite Urine Bilirubin Urine Urobilinogen Ur Leukocyte Esterase Urine Glucose 08/01/24 08/01/24 07/31/24 17:20 16:35 16:15 Sodium Potassium Chloride Carbon Dioxide Anion Gap BUN Creatinine Est GFR (CKD-EPI 2020) Glucose 704 H* Serum Osmolality 250 L Calcium Magnesium Total Bilirubin AST ALT Alkaline Phosphatase Total Protein Albumin Urine Color Cancelled Urine Clarity Cancelled Urine pH Cancelled Ur Specific [place] Cancelled Urine Protein Cancelled Urine Ketones Cancelled Urine Blood Cancelled Urine Nitrite Cancelled Urine Bilirubin Cancelled Urine Urobilinogen Cancelled Ur Leukocyte Esterase Cancelled Urine Glucose Cancelled PFSH All Active Problems (Updated 08/01/24 @ 13:54 by Luisito Jovel) Hyperkalemia (Acute) SIADH (syndrome of inappropriate ADH production) (Acute) MANISH (obstructive sleep apnea) (Chronic) Hyponatremia (Acute) Traumatic ecchymosis of chest (Acute) Acute hyperglycemia (Acute) Anemia in CKD (chronic kidney disease) (Chronic) HCAP (healthcare-associated pneumonia) (Acute) Closed fracture of left proximal humerus (Acute 06/18/23) Abnormal ankle brachial index (Acute) Leg wound, left (Acute) Contusion of left knee (Acute) Sebaceous cyst (Acute) COVID-19 (Acute) 05/2021 Hx of skilled nursing use of blood thinners (Chronic) Former smoker (Acute) Infected sebaceous cyst of skin (Acute) PAD (peripheral artery disease) (Chronic) Cyst (Acute) Right shoulder Ganglion of left wrist (Acute) S/P Excision: 07/30/2021 Concussion (Acute) Medical History Heart failure with recovered ejection fraction (HFrecEF) Infected animal bite of lower leg Struck by pig, initial encounter 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 Surgical History History of incision and drainage (~09/2022) left lower leg I&D after laceration S/P cardiac cath stent placed 4 month ago Hx of removal of cyst (~07/20/21) upper left chest back excision of melanoma on arm. Trigger Finger release (03/29/11) LEFT THUMB Stent placement LE for intermittent claudication Oophrectomy, Both Abdominal hysterectomy (~2001) Carotid endarterectomy bilateral. Social History Smoking/Tobacco Use Status: Current every day Tobacco Type: cigarettes Smoking risk assessment performed?: Yes Alcohol Intake: current Alcohol Intake frequency: a few times a week Alcohol type: hard liquor Drug use: Never Substance use type: does not use Housing: apartment Current gender identity: female Do you feel safe at home: Yes Do you feel safe in your relationship?: Yes Time Spent with Patient Time Spent with Patient: 45-69 minutes Time was spent: preparing to see the patient(eg.review tests), obtaining and/or reviewing separately otained hiistory, ordering medications,tests, procedures, referring, communicating with other health manager critical care, indepentently interpreting results, counseling the patient and care coordination
== END 2024-08-02 15:35 | disposition home or self-care (01) | DRG 644 ==
LOC: ER 20:44 → ICU 22:03
PROVIDERS: Family Medicine; Admitting Provider Family Medicine; Emergency Provider Physician Assistant; PCP Family Medicine; Visit Provider Family Medicine
DX: E22.2 Syndrome of inappropriate secretion of antidiuretic hormone (principal); I13.0 Hypertensive heart and chronic kidney disease with heart failure and stage 1 through stage 4 chronic kidney disease, or unspecified chronic kidney disease; I50.32 Chronic diastolic (congestive) heart failure; N18.4 Chronic kidney disease, stage 4 (severe); I73.9 Peripheral vascular disease, unspecified; E10.22 Type 1 diabetes mellitus with diabetic chronic kidney disease; E03.9 Hypothyroidism, unspecified; J44.9 Chronic obstructive pulmonary disease, unspecified; R41.0 Disorientation, unspecified; D63.1 Anemia in chronic kidney disease; E78.2 Mixed hyperlipidemia; G47.33 Obstructive sleep apnea (adult) (pediatric); E87.5 Hyperkalemia; R53.1 Weakness; I25.10 Atherosclerotic heart disease of native coronary artery without angina pectoris; Z79.4 Long term (current) use of insulin; Z79.01 Long term (current) use of anticoagulants; Z79.84 Long term (current) use of oral hypoglycemic drugs; D72.819 Decreased white blood cell count, unspecified; Z86.73 Personal history of transient ischemic attack (TIA), and cerebral infarction without residual deficits; F10.90 Alcohol use, unspecified, uncomplicated; Z95.5 Presence of coronary angioplasty implant and graft; E10.65 Type 1 diabetes mellitus with hyperglycemia; E86.1 Hypovolemia; Z96.41 Presence of insulin pump (external) (internal); F17.210 Nicotine dependence, cigarettes, uncomplicated
CPT/HCPCS: 00123; 36415; 36416; 80048; 80053; 80076; 80307; 82947; 82962; 83690; 83935; 85027; 87637; 93005; 97162; 99285; 80320; 81003; 81015; 82140; 83605; 83735; 83930; 84439; 84443; 84484; 85025; 85610; 93010; 99223; 99233; 99239; J1815

== ENCOUNTER 2024-08-08 15:47 | Outpatient (CLI) | payer MEDICARE, MEDICAID, SELFPAY ==
[2024-08-08 17:39] LABS: Anion Gap 6.6 mmol/L (3-11); BUN 24 mg/dL (7-18); CO2 30.4 mmol/L (21.0-32.0); CREATININE 1.5 mg/dL (0.55-1.02); Calcium 8.8 mg/dL (8.5-10.1); Chloride 92 mmol/L (98-107); Estimated GFR 38.43 (mL/min/1.73m2); Glucose 64 mg/dL (74-106); Potassium 4.5 mmol/L (3.5-5.1); Sodium 129 mmol/L (136-145)
== END 2024-08-08 15:48 | disposition home or self-care (01) ==
LOC: LBO 15:48
PROVIDERS: PCP Family Medicine; Visit Provider Family Medicine
DX: E87.1 Hypo-osmolality and hyponatremia (principal)
CPT/HCPCS: 36415; 80048

== ENCOUNTER 2024-08-21 17:10 | Outpatient (CLI) | payer MEDICARE, MEDICAID, SELFPAY ==
[2024-08-21 17:16] LABS: HCT 30.7 % (36.0-46.0)
[2024-08-21 17:38] LABS: Hemoglobin A1C 8.1 % (<5.7)
[2024-08-21 18:16] LABS: BUN 19 mg/dL (7-18); CREATININE 1.5 mg/dL (0.55-1.02); Calcium 8.7 mg/dL (8.5-10.1); Chloride 87 mmol/L (98-107); Estimated GFR 38.43 (mL/min/1.73m2); Glucose 123 mg/dL (74-106); NT-proBNP 12473 pg/mL (<300); Potassium 4.7 mmol/L (3.5-5.1)
[2024-08-21 19:26] LABS: Sodium 122 mmol/L (136-145)
== END 2024-08-21 17:11 | disposition home or self-care (01) ==
LOC: LBO 17:10
PROVIDERS: PCP Family Medicine; Visit Provider Family Medicine
DX: E10.319 Type 1 diabetes mellitus with unspecified diabetic retinopathy without macular edema (principal); D64.9 Anemia, unspecified; I42.9 Cardiomyopathy, unspecified
CPT/HCPCS: 36415; 80048; 83036; 83880; 85014; 85018

== ENCOUNTER 2024-08-22 18:17 | Inpatient (IN) | payer MEDICARE, MEDICAID, SELFPAY ==
--- NOTE | 2024-08-22 18:15 | RT.EKG_ITS ---
APPROVED REPORT Exam: Resting ECG Reason for Exam: edema Patient Location: E HR:63 bpm ECG Measurements Heart Rate 63 AXIS MA 195 P 70 QRSd 102 QRS -25 QT 451 T 21 QTc 460 Conclusion Sinus rhythm...normal P axis, V-rate 60- 99 Anteroseptal infarct, old...Q >40mS, V1-V2
[2024-08-22 18:24] VITALS: BP 167/73; PULSE 63; RESP 20; TEMP 36.9; O2SAT 95
--- NOTE | 2024-08-22 18:30 | DI.RAD_ITS ---
Exam(s) XR CHEST 2V PA LATERAL EXAM: XR CHEST 2V PA LATERAL CLINICAL HISTORY: Chest pain. TECHNIQUE: 2D digital imaging was performed. COMPARISON: CR XR CHEST 2V PA LATERAL from 05/21/2024 FINDINGS: 2 views: Mild cardiomegaly again noted. The mediastinum is not widened. The previously present bilateral interstitial pattern has cleared. There are no new infiltrates. Th ere are no obvious pleural effusions. The previously present small pleural effusions appear to have cleared. IMPRESSION: Cardiomegaly. No obvious acute pulmonary findings. The previously present interstitial bilateral di sease which was evident on chest x-ray of 05/21/2024 has cleared. DATA REPOSITORY: RADIATION DOSE DELIVERED:
--- NOTE | 2024-08-22 18:44 | W.ED.GENAD ---
Discharge Plan Disposition Patient Disposition: Admit to [facility] Condition: Serious Discharge Details Chief Complaint: GenMedical Clinical Impression: CHF (congestive heart failure), Acute hyponatremia, Hypomagnesemia Admit Date/Time: 08/22/24 20:23 Admit Provider: Luisito Jovel Attending Provider: Luisito Jovel Primary Care Provider: Shirley Yu V ED Provider: Arnol Casiano Home Meds and New Rx's Prescriptions: No Action rosuvastatin 10 mg tablet 10 mg PO DAILY cholecalciferol (vitamin D3) [Vitamin D3] 1,000 UNIT capsule 1,000 unit PO DAILY humalog pump 1 unit subcut 31/10 Patient Comments: Not set up yet albuterol sulfate 90 mcg/actuation HFA aerosol inhaler 2 puff inhalation Q6H PRN magnesium oxide 250 mg magnesium tablet 500 mg PO QPM ferrous gluconate 324 mg (37.5 mg iron) tablet 324 mg PO DAILY furosemide 20 mg tablet 20 mg PO DAILY aspirin 81 MG tablet,delayed release (DR/EC) 81 mg PO DAILY acetaminophen 500 mg tablet 1,000 mg PO Q8H PRN (Reason: pain) Qty: 60 3RF insulin aspart U-100 [Novolog U-100 Insulin aspart] 100 unit/mL solution 1.4 unit subcut TID Patient Comments: INJECT 1.4 UNITS CONTINUOUSLY WITH BOLUS BEFORE MEALS Dme 1 1.73 m2 SQ ONB PRN PRNQty: 50 0RF amlodipine 5 mg tablet 5 mg PO DAILY Patient Comments: TAKE ONE TABLET BY MOUTH EVERY DAY pantoprazole 40 mg tablet,delayed release (DR/EC) 40 mg PO BID Patient Comments: TAKE ONE TABLET BY MOUTH TWICE A DAY levothyroxine 175 mcg tablet 175 mcg PO DAILY Patient Comments: TAKE ONE TABLET BY MOUTH EVERY DAY Eliquis 5 mg tablet 5 mg PO BID Entresto 24-26 mg tablet 1 tab PO BID carvedilol 12.5 mg tablet 12.5 mg PO BID insulin glargine [Lantus Solostar U-100 Insulin] 100 unit/mL (3 mL) Insulin Pen 15 unit subcut HS Qty: 0 0RF spironolactone 25 mg tablet 25 mg PO DAILY Patient Comments: TAKE ONE TABLET BY MOUTH EVERY DAY furosemide 80 mg tablet 80 mg PO DAILY Patient Comments: TAKE ONE TABLET BY MOUTH EVERY DAY Rx Instructions: Pt was unaware of this change, has not picked this up folic acid 1 mg tablet Patient Comments: TAKE ONE TABLET BY MOUTH EVERY DAY HPI General Mode of arrival: ambulatory. Date/Time Provider Initiated Documentation: 08/22/24 18:29. Limitations to Documentation: no limitations. Information obtained by: patient. HPI Narrative: 63-year-old female presents at the request of her PCP to address recent outpatient labs. Patient describes progressive generalized weakness over the past couple weeks. Also reports increased swelling in both her abdomen and bilateral lower extremities. Reports 5-10 pound weight gain over the past couple of weeks based upon her weight checks at home. Patient admits to taking 20 mg p.o. Lasix daily but believes that her custom motorcycle painter wants her to take a higher dose. Denies recent illness. Denies chest pain or shortness of breath. The swelling is uncomfortable but no true pain. Related Data Home Medications ?Medication ?Instructions ?Recorded ?Confirmed aspirin 81 mg tablet,delayed 81 mg PO DAILY 08/13/12 08/22/24 release Humalog Pump 1 unit subcut 31/1001/07/16 08/22/24 cholecalciferol (vitamin D3) 25 1,000 unit PO DAILY 01/07/16 08/22/24 mcg (1,000 unit) capsule (Vitamin D3) acetaminophen 500 mg tablet 1,000 mg (2 x 500 mg) PO Q8H PRN 07/20/21 08/22/24 pain #60 tabs rosuvastatin 10 mg tablet 10 mg PO DAILY 08/17/22 08/22/24 insulin aspart U-100 100 unit/mL 1.4 unit subcut TID 09/23/22 08/22/24 subcutaneous solution (Novolog U-100 Insulin aspart) amlodipine 5 mg tablet 5 mg PO DAILY 06/18/23 08/22/24 pantoprazole 40 mg tablet,delayed 40 mg PO BID 06/18/23 08/22/24 release albuterol sulfate 90 mcg/actuation 2 puff inhalation Q6H PRN 02/01/24 08/22/24 aerosol inhaler ferrous gluconate 324 mg (37.5 mg 324 mg PO DAILY 02/01/24 08/22/24 iron) tablet furosemide 20 mg tablet 20 mg PO DAILY 02/01/24 08/22/24 magnesium oxide 500 mg PO QPM 02/01/24 08/22/24 apixaban 5 mg tablet (Eliquis) 5 mg PO BID 05/21/24 08/22/24 levothyroxine 175 mcg tablet 175 mcg PO DAILY 05/21/24 08/22/24 sacubitril 24 mg-valsartan 26 mg 1 tab PO BID 05/21/24 08/22/24 tablet (Entresto) carvedilol 12.5 mg tablet 12.5 mg PO BID 05/22/24 08/22/24 Dme 1 1.73 m2 SQ ONB PRN PRN #50 SYRGS 06/15/24 08/22/24 insulin glargine 100 unit/mL (3 15 unit (0.15 mL) subcut HS #0 mL 06/30/24 08/22/24 mL) subcutaneous pen (Lantus Solostar U-100 Insulin) folic acid 1 mg tablet 08/22/24 furosemide 80 mg tablet 80 mg PO DAILY 08/22/24 08/22/24 spironolactone 25 mg tablet 25 mg PO DAILY 08/22/24 08/22/24 Previous Rx's ?Medication ?Instructions ?Recorded acetaminophen 500 mg tablet 1,000 mg (2 x 500 mg) PO Q8H PRN 07/20/21 pain #60 tabs Dme 1 1.73 m2 SQ ONB PRN PRN #50 SYRGS 06/15/24 insulin glargine 100 unit/mL (3 15 unit (0.15 mL) subcut HS #0 mL 06/30/24 mL) subcutaneous pen (Lantus Solostar U-100 Insulin) Allergies Allergy/AdvReac Type Severity Reaction Status Date / Time Sulfa (Sulfonamide Allergy Severe RENAL Verified 07/31/24 15:31 Antibiotics) FAILURE sulfamethoxazole (From Allergy Severe renal Verified 07/31/24 15:31 Bactrim) failure Penicillins Allergy Unknown Other (See Verified 07/31/24 15:31 Comment) trimethoprim (From Bactrim) Allergy Other (See Verified 07/31/24 15:31 Comment) General Stated Complaint: GenMedical DAVID: 3 Review of Systems Constitutional Constitutional: Reports fatigue, Denies fever(s), Denies headache(s) and Reports weakness (Generalized) ENT Ears, Nose, Mouth, and Throat: Denies headache(s) and Denies neck pain Cardiovascular Cardiovascular: Denies chest pain and Denies dyspnea Respiratory Respiratory: Denies dyspnea Gastrointestinal Gastrointestinal: Reports abdominal pain, Denies nausea and Denies vomiting Genitourinary Genitourinary: Denies difficulty voiding Musculoskeletal Musculoskeletal: Denies neck pain Integumentary/Breasts Skin/Breast: Denies rash Neurologic Neurologic: Denies headache(s) and Reports weakness (Generalized) Endocrine Endocrine: Reports fatigue Hematologic/Lymphatic Hematologic/Lymphatic: Denies easy bleeding Exam Const General: cooperative, healthy appearing, comfortable and no acute distress Orientation: alert, awake and oriented x3 [facility] Head: normal to inspection, normocephalic and atraumatic Face and sinus: normal facial exam Mouth: moist mucous membranes Eyes General: appearance normal, both eyes and all related structures Conjunctivae: conjunctivae normal Neck Neck: normal visual inspection, full ROM, trachea midline and supple Resp Effort & Inspection: normal respiratory effort and able to speak in complete sentences Auscultation: clear to auscultation bilaterally Cardio Rate: regular rate Rhythm: regular rhythm GI Palpation: soft, not firm, no guarding and tender (Diffuse mild) Auscultation: normal bowel sounds Back/Spine/Pelvis Back: no CVA tenderness and No back tenderness Skin General skin exam: no rashes or lesions noted Neuro General: patient alert, patient awake, patient oriented x3, moves all extremities and no focal motor deficits Cranial Nerves: CN's II-XI intact bilaterally Cognition: normal cognition Speech: speech normal Gait: normal gait Motor: muscle tone normal throughout Sensory Exam: no sensory deficits noted Extrem General: full ROM, capillary refill normal, no calf tenderness and edema Laterality: bilateral (Lower extremity 2-3+ pitting edema) Psych Appearance: grossly normal Mental Status: mental status grossly normal Course Vital Signs Vital signs: Vital Signs Temperature 36.9 C 08/22/24 18:24 Pulse 63 08/22/24 18:24 Respiratory Rate 20 08/22/24 18:24 Blood Pressure 167/73 H 08/22/24 18:24 Pulse Oximetry 95 08/22/24 18:24 Temperature 36.9 C 08/22/24 18:24 Temperature Source Oral 08/22/24 18:24 Pulse 63 08/22/24 18:24 Respiratory Rate 20 08/22/24 18:24 Blood Pressure 167/73 H 08/22/24 18:24 Blood Pressure Position Sitting 05/15/25 18:24 Pulse Oximetry 95 08/22/24 18:24 Oxygen Delivery Method Room Air 08/22/24 18:24 Oxygen Flow Rate 0 08/22/24 18:24 Pain Level 0 08/22/24 18:24 Medical Decision Making 63-year-old female with a past medical history that includes diabetes, COPD, CAD, heart failure, hypertension, CKD, hyperlipidemia, SIADH presenting for evaluation because of abnormal lab values. She described generalized weakness progressive over the past couple of weeks. Describes swelling in her abdomen and legs and weight gain of about 5-10 pounds in that timeframe. She does take Lasix daily 20 mg but believes her custom motorcycle painter would like her to take more. She denies recent illness, chest pain, or shortness of breath. She was seen by her PCP yesterday labs were drawn and she was called today and told to go to the ER for her abnormal laboratory values including a sodium of 120 and a BNP of 12,473. Clinically she appears well, nontoxic. Diffuse mild abdominal discomfort she describes this as a tightness given the swelling. She does have bilateral lower extremity pitting edema without weeping or evidence of cellulitis. Lungs are clear to auscultation but are slightly diminished bilateral bases. Will obtain IV access, obtain routine laboratory values including a single troponin and BNP. Laboratory values reviewed, white blood cell count of 4.45 hemoglobin 11.6 hematocrit 32.7 sodium 123 magnesium 1.6 creatinine 1.6 with a GFR of 35.57 glucose 206, troponin 16. Chest x-ray reviewed by me and read by radiology as bibasilar pleural thickening versus tiny effusions. EKG reveals sinus rhythm ventricular rate of 63, no STEMI. Patient appears hypervolemic and hyponatremic. Also with hypomagnesemia. Creatinine of 1.6 and GFR of 35.57. Patient will require careful diuresis in the setting of her CKD and hyponatremia. Would expect hyponatremia to improve with diuresis. I do not believe this can be obtained safely in a short ER visit. Case was discussed with her hospitalist team, Dr. Jovel who was agreeable to admission. Will initiate 40 IV Lasix and 2 g of magnesium here in the ER. This documentation was generated using [employer] system, please disregard any oddities of phrase or misspellings. Medical Records Medical records reviewed: Yes I reviewed the patient's medical records. Quality:SDOH Health Related Social Needs: Health related social needs education (Z55.6) Health related social needs details no needs voiced PFS All Active Problems (Updated 08/22/24 @ 21:23 by GENTRY Thomson) Hypomagnesemia (Acute) Acute hyponatremia (Acute) CHF (congestive heart failure) (Chronic) SIADH (syndrome of inappropriate ADH production) (Acute) MANISH (obstructive sleep apnea) (Chronic) Hyponatremia (Acute) Traumatic ecchymosis of chest (Acute) Acute hyperglycemia (Acute) Anemia in CKD (chronic kidney disease) (Chronic) HCAP (healthcare-associated pneumonia) (Acute) Closed fracture of left proximal humerus (Acute 06/18/23) Abnormal ankle brachial index (Acute) Concussion (Acute) Ganglion of left wrist (Acute) S/P Excision: 07/30/2021 Cyst (Acute) Right shoulder PAD (peripheral artery disease) (Chronic) Infected sebaceous cyst of skin (Acute) Former smoker (Acute) Hx of penitentiary use of blood thinners (Chronic) COVID-19 (Acute) 05/2021 Sebaceous cyst (Acute) Contusion of left knee (Acute) Leg wound, left (Acute) Medical History Heart failure with recovered ejection fraction (HFrecEF) Infected animal bite of lower leg Struck by pig, initial encounter 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 Surgical History History of incision and drainage (~09/2022) left lower leg I&D after laceration S/P cardiac cath stent placed 4 month ago Hx of removal of cyst (~07/20/21) upper left chest back excision of melanoma on arm. Trigger Finger release (03/29/11) LEFT THUMB Stent placement LE for intermittent claudication Oophrectomy, Both Abdominal hysterectomy (~2001) Carotid endarterectomy bilateral. Social History Smoking/Tobacco Use Status: Current every day Tobacco Type: cigarettes Smoking risk assessment performed?: Yes Alcohol Intake: current Alcohol Intake frequency: a few times a week Alcohol type: hard liquor Drug use: Never Substance use type: does not use Housing: apartment Current gender identity: female Do you feel safe at home: Yes Do you feel safe in your relationship?: Yes
[2024-08-22 19:07] VITALS: RESP 18
[2024-08-22 19:11] LABS: Abs Immature Grans 0.01 10^3/uL (0.0-0.06); Absolute Basophil Count 0.03 10^3/uL (0.0-0.2); Absolute Eosinophil Count 0.03 10^3/uL (0.0-0.7); Absolute Lymphocyte Count 0.73 10^3/uL (1.2-3.4); Absolute Monocyte Count 0.34 10^3/uL (0.1-0.8); Absolute Neutrophil Count 3.31 10^3/uL (1.2-6.7); Basophils % 0.7 %; Eosinophils % 0.7 %; HCT 32.7 % (36.0-46.0); HGB 11.6 g/dL (11.2-15.7); Immature Grans % 0.2 %; Lymphocytes % 16.4 %; MCH 32.5 pg (27.0-33.0); MCHC 35.5 % (32.0-36.0); MCV 92 fL (80-95); MPV 8.9 fL (8.0-11.0); Monocytes % 7.6 %; Neutrophils % 74.4 %; Platelet Count 281 10^3/uL (130-400); RBC 3.57 10^6/uL (3.93-5.22); RDW 12.4 % (11.7-14.6); RDW-SD 41.6 fL; WBC 4.45 10^3/uL (4.4-10.8)
[2024-08-22 19:33] LABS: ALT 28 U/L (14-59); AST 37 U/L (15-37); Albumin 2.9 g/dL (3.4-5.0); Alkaline Phosphatase 176 U/L (46-116); Anion Gap 3.2 mmol/L (3-11); BUN 20 mg/dL (7-18); Bilirubin, Total 0.6 mg/dL (0.2-1.0); CO2 31.8 mmol/L (21.0-32.0); CREATININE 1.6 mg/dL (0.55-1.02); Calcium 8.7 mg/dL (8.5-10.1); Chloride 88 mmol/L (98-107); Estimated GFR 35.57 (mL/min/1.73m2); Glucose 206 mg/dL (74-106); Magnesium 1.6 mg/dL (1.8-2.4); NT-proBNP 10958 pg/mL (<300); Potassium 3.9 mmol/L (3.5-5.1); Total Protein 5.9 g/dL (6.4-8.2); Troponin I 16 ng/L (<or=51)
[2024-08-22 19:36] LABS: Sodium 123 mmol/L (136-145)
--- NOTE | 2024-08-22 20:07 | DI.VRAD_ITS ---
PROCEDURE INFORMATION: Exam: XR Chest Exam date and time: 08/22/2024 7:30 PM Age: 63 years old Clinical indication: Chest wall pain; Chest pain TECHNIQUE: Imaging protocol: Radiologic exam of the chest. Views: 2 views. COMPARISON: CT CHEST WO 06/27/2024 9:00 PM FINDINGS: Lungs: Chronic pleural thickening versus tiny effusions identified the lung bases. No acute infiltrates. Pleural spaces: No pneumothorax. Heart/Mediastinum: Unremarkable. No cardiomegaly. Bones/joints: Unremarkable. IMPRESSION: Bibasilar pleural thickening versus tiny effusions. Dictated and Authenticated by: Bandar Flores MD. Orderin Oh Ambrose MD
[2024-08-22] MEDS: MAGNESIUM SULFATE 2 GM/50 ML BAG IV_INF (20:22)
[2024-08-22] MEDS: Furosemide 40 MG/4 ML VIAL IVP (20:22)
--- NOTE | 2024-08-22 20:40 | HPE_ITS ---
Date of service: 08/22/24 Time of Service: 20:40 Assessment and Plan Assessment and plan (1) Hyponatremia: Status: Acute Assessment and plan: History of SIADH diagnosis, but today seems to by hypervolemic hyponatremia so we started with loop diuretic. Unfortunately sodium went down, though clinically she was minimally symptomatic and feels better. Last visit she improved with NS hydration. I will try NS overnight, if not imrpoving consider 3% Fluid restrict Chlorthalidone was prescribed last week by cardiology, if she took this it could have helped cause this but it is unclear if she got this medication. (2) Heart failure with recovered ejection fraction (HFrecEF): Assessment and plan: Recent echocardiogram at 04/2024 showing LVEF around 45%, previously as low as 30%. BNaP higher than baseline with signs of hypervolemia. Tried diuresis as above. Continue her GDMT. Consider other causes of LE edema, getting urine protein/cr. Labs and rest of exam don't suggest cirrhosis. (3) Diabetes mellitus type 1: Assessment and plan: She really wants to keep her pump on, I am okay with this. Supplement with ACHS fingerstick. (4) Hypomagnesemia: Status: Acute Assessment and plan: s/p 2 g, follow (5) CAD (coronary artery disease): Assessment and plan: Contnue cardiac medications, not currently symptomatic. (6) Chronic renal insufficiency: Assessment and plan: At or better than her baseline CKD3b. Follow (7) PAD (peripheral artery disease): Status: Chronic Assessment and plan: on apixaban for this along with ASA/statin (8) MANISH (obstructive sleep apnea): Status: Chronic Assessment and plan: Home CPAP History of Present Illness Narrative: 63 yo F with history of recurrent hyponatremia, type 1 DM, CAD with HFimpEF on GDMT, hypothyroidism, MANISH, PAD on ASA/apixaban, history of head trauma with SAH who presented to the ED with increased swelling in her bilateral lower extremities and headaches over the last 3-4 days. The swelling has really bothered her, makes it uncomfortable to walk or even sit down. Her clothes don't fit around her waist. She has not changed her diet, fluid, or salt intake. She states last week her department store salesperson wanted her to increase her furosemide to 80mg from 20mg, but she never did this. The department store salesperson note from 08/14 actually says she was already on 80mg of furosemide and that she should add chlorthalidone 25mg. She went to her PCP 08/21 and had labs, then was called to go to the ED for her sodium. She does not feel confused or dizzy this time, just the headache. She was discharged 08/02 after a two day admission when she was hyponatremic. She received 3% saline then, but she improved faster after she was hydrated more agressively with normal saline in setting of hyperglycemia and anion gap. In the past she has improved with normal saline. At her last admission, however, she was not swollen like this. In the ED, she was given 40mg and she did diurese. She states she feels a little better since arriving. Review of Systems All systems reviewed & are unremarkable except as noted in HPI and below PFSH All Active Problems (Updated 08/22/24 @ 22:48 by Luisito Jovel) Hypomagnesemia (Acute) Acute hyponatremia (Acute) CHF (congestive heart failure) (Chronic) SIADH (syndrome of inappropriate ADH production) (Acute) MANISH (obstructive sleep apnea) (Chronic) Hyponatremia (Acute) Traumatic ecchymosis of chest (Acute) Acute hyperglycemia (Acute) Anemia in CKD (chronic kidney disease) (Chronic) HCAP (healthcare-associated pneumonia) (Acute) Closed fracture of left proximal humerus (Acute 06/18/23) Abnormal ankle brachial index (Acute) Leg wound, left (Acute) Contusion of left knee (Acute) Sebaceous cyst (Acute) COVID-19 (Acute) 05/2021 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 (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) Former smoker (Acute) Infected sebaceous cyst of skin (Acute) PAD (peripheral artery disease) (Chronic) Cyst (Acute) Right shoulder Ganglion of left wrist (Acute) S/P Excision: 07/30/2021 Concussion (Acute) Medical History (Updated 08/22/24 @ 22:48 by Luisito Jovel) Heart failure with recovered ejection fraction (HFrecEF) Infected animal bite of lower leg Struck by pig, initial encounter Pulmonary granuloma RLL Wedge Resection 06/2017 COPD (chronic obstructive pulmonary disease) Carotid stenosis CAD (coronary artery disease) Chronic renal insufficiency Hx of malignant melanoma Diabetes mellitus type 1 Pump in situ per [facility] [place] Hypothyroidism Hyperlipidemia Benign hypertension 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 Surgical History History of incision and drainage (~09/2022) left lower leg I&D after laceration S/P cardiac cath stent placed 4 month ago Hx of removal of cyst (~07/20/21) upper left chest back excision of melanoma on arm. Trigger Finger release (03/29/11) LEFT THUMB Stent placement LE for intermittent claudication Oophrectomy, Both Abdominal hysterectomy (~2001) Carotid endarterectomy bilateral. Social History Smoking/Tobacco Use Status: Current every day Tobacco Type: cigarettes Smoking risk assessment performed?: Yes Alcohol Intake: current Alcohol Intake frequency: a few times a week Alcohol type: hard liquor Drug use: Never Substance use type: does not use Housing: apartment Current gender identity: female Do you feel safe at home: Yes Do you feel safe in your relationship?: Yes Meds Allergies and Home Medications Allergies Allergy/AdvReac Type Severity Reaction Status Date / Time Sulfa (Sulfonamide Allergy Severe RENAL Verified 07/31/24 15:31 Antibiotics) FAILURE sulfamethoxazole (From Allergy Severe renal Verified 07/31/24 15:31 Bactrim) failure Penicillins Allergy Unknown Other (See Verified 07/31/24 15:31 Comment) trimethoprim (From Bactrim) Allergy Other (See Verified 07/31/24 15:31 Comment) Home Medications ?Medication ?Instructions ?Recorded ?Confirmed ?Type aspirin 81 mg tablet,delayed 81 mg PO DAILY 08/13/12 08/22/24 History release Humalog Pump 1 unit subcut 24/7 01/07/16 08/22/24 History cholecalciferol (vitamin D3) 25 1,000 unit PO DAILY 01/07/16 08/22/24 History mcg (1,000 unit) capsule (Vitamin D3) acetaminophen 500 mg tablet 1,000 mg (2 x 500 mg) PO Q8H PRN 07/20/21 08/22/24 Rx pain #60 tabs rosuvastatin 10 mg tablet 10 mg PO DAILY 08/17/22 08/22/24 History insulin aspart U-100 100 unit/mL 1.4 unit subcut TID 09/23/22 08/22/24 History subcutaneous solution (Novolog U-100 Insulin aspart) amlodipine 5 mg tablet 5 mg PO DAILY 06/18/23 08/22/24 History pantoprazole 40 mg tablet,delayed 40 mg PO BID 06/18/23 08/22/24 History release albuterol sulfate 90 mcg/actuation 2 puff inhalation Q6H PRN 02/01/24 08/22/24 History aerosol inhaler ferrous gluconate 324 mg (37.5 mg 324 mg PO DAILY 02/01/24 08/22/24 History iron) tablet furosemide 20 mg tablet 20 mg PO DAILY 02/01/24 08/22/24 History magnesium oxide 500 mg PO QPM 02/01/24 08/22/24 History apixaban 5 mg tablet (Eliquis) 5 mg PO BID 05/21/24 08/22/24 History levothyroxine 175 mcg tablet 175 mcg PO DAILY 05/21/24 08/22/24 History sacubitril 24 mg-valsartan 26 mg 1 tab PO BID 05/21/24 08/22/24 History tablet (Entresto) carvedilol 12.5 mg tablet 12.5 mg PO BID 05/22/24 08/22/24 History Dme 1 1.73 m2 SQ ONB PRN PRN #50 SYRGS 06/15/24 08/22/24 Rx insulin glargine 100 unit/mL (3 15 unit (0.15 mL) subcut HS #0 mL 06/30/24 08/22/24 Rx mL) subcutaneous pen (Lantus Solostar U-100 Insulin) folic acid 1 mg tablet 08/22/24 History furosemide 80 mg tablet 80 mg PO DAILY 08/22/24 08/22/24 History spironolactone 25 mg tablet 25 mg PO DAILY 08/22/24 08/22/24 History Exam Narrative Exam Narrative: GEN: Alert and oriented x 4, pleasant and cooperative, smilng, gives linear history. No acute distress at rest. HEENT: Head atraumatic. Conjunctiva clear, no icterus. PEERL, EOMI. no rhinorrhea. MMM, OP benign. Neck is supple with no masses or lymphadenopathy, trachea midline LUNGS: CTAB with normal effort CV: RRR with no murmurs, gallops, or rubs. ABD: active bowel sounds, soft, nontender and nondistended. No masses. No fluid wave. EXT: no cyanosis, clubbing. 1-2+ pitting edema to groin. MSK: No joint redness or swelling NEURO: CN 2-12 grossly intact. Normal movement of 4 extremities. Normal speech and coordination. No tremor SKIN: No rashes or open wounds. spider veins and red macules on legs. PSYCH: normal mood and affect, normal thought process. Results Labs 08/22/24 19:03 08/22/24 22:00 Labs: Laboratory Results - last 24 hr 08/22/24 19:03 WBC 4.45 RBC 3.57 L Hgb 11.6 Hct 32.7 L MCV 92 MCH 32.5 MCHC 35.5 RDW 12.4 Plt Count 281 MPV 8.9 Immature Gran % 0.2 Neutrophils % 74.4 Lymphocytes % 16.4 Monocytes % 7.6 Eosinophils % 0.7 Basophils % 0.7 Nucleated RBC % 0.0 Absolute Neutrophils 3.31 Absolute Lymphocytes 0.73 L Absolute Monocytes 0.34 Absolute Eosinophils 0.03 Absolute Basophils 0.03 Sodium 123 L* Potassium 3.9 Chloride 88 L Carbon Dioxide 31.8 Anion Gap 3.2 BUN 20 H Creatinine 1.6 H Est GFR (CKD-EPI 2020) 35.57 Glucose 206 H Calcium 8.7 Magnesium 1.6 L Total Bilirubin 0.6 AST 37 ALT 28 Alkaline Phosphatase 176 H Troponin I 16 NT-Pro-B Natriuret Pep 09519 H Total Protein 5.9 L Albumin 2.9 L Last Vital Signs Temp 36.9 C 08/22/24 18:24 Pulse 63 08/22/24 18:24 Resp 18 08/22/24 19:07 BP 167/73 H 08/22/24 18:24 Pulse Ox 95 08/22/24 18:24 Time Spent Time spent with Patient: >75 minutes Time was spent: preparing to see the patient(eg.review tests), obtaining and/or reviewing separately otained hiistory, ordering medications,tests, procedures, referring, communicating with other health healthcare business analyst, indepentently interpreting results, counseling the patient and care coordination
--- NOTE | 2024-08-22 20:55 | W.PC.ACHO ---
Registration Status: Primary Language: Preferred Language: ED Information & Data Chief Complaint GenMedical 08/22/24 18:44 Triage Note Pt has noticed increased 08/22/24 18:24 swelling in abdomen and lower extremities. Denies SOB or CP. Pt reports 5 lb weight gain based on daily weights in last couple of weeks. Hx of low sodium levels as well. Denies diet or fluid restrictions. Has been urinating normally. Medical / Surgical History (Last Reviewed 08/22/24 @ 20:14 by GENTRY Thomson) Heart failure with recovered ejection fraction (HFrecEF) Infected animal bite of lower leg Struck by pig, initial encounter Pulmonary granuloma COPD (chronic obstructive pulmonary disease) Carotid stenosis CAD (coronary artery disease) CKD (chronic kidney disease) stage 4, GFR 15-29 ml/min Chronic renal insufficiency Hx of malignant melanoma Diabetes mellitus type 1 Hypothyroidism Hyperlipidemia Benign hypertension Posterior cerebral circulation hemorrhagic infarction Hx MRSA infection (Last Reviewed 08/22/24 @ 20:14 by GENTRY Thomson) History of incision and drainage (~09/2022) S/P cardiac cath Hx of removal of cyst (~07/20/21) excision of melanoma on arm. Trigger Finger release (03/29/11) Stent placement Oophrectomy, Both Abdominal hysterectomy (~2001) Carotid endarterectomy Most Recent Vital Signs Temperature 36.9 C 08/22/24 18:24 Temperature Source Oral 08/22/24 18:24 Pulse 63 08/22/24 18:24 Respiratory Rate 18 08/22/24 19:07 Respiratory Effort Normal 08/22/24 19:07 Respiratory Depth Normal 08/22/24 19:07 Respiratory Pattern Normal 08/22/24 19:07 Blood Pressure 167/73 H 08/22/24 18:24 Blood Pressure Position Sitting 08/22/24 18:24 Pulse Oximetry 95 08/22/24 18:24 Oxygen Delivery Method Room Air 08/22/24 18:24 Oxygen Flow Rate 0 08/22/24 18:24 Pain Level 0 08/22/24 18:24 Allergies Sulfa (Sulfonamide Antibiotics) Allergy (Severe, Verified 07/31/24 15:31) RENAL FAILURE sulfamethoxazole (From Bactrim) Allergy (Severe, Verified 07/31/24 15:31) renal failure Penicillins Allergy (Unknown, Verified 07/31/24 15:31) Other (See Comment) unsure, since childhood trimethoprim (From Bactrim) Allergy (Verified 07/31/24 15:31) Other (See Comment) renal failure Active Medications Generic Name Dose Route Start Last Admin Trade Name Qing PRN Reason Stop Dose Admin Magnesium Sulfate 2 gm in 50 mls @ 25 mls/hr 08/22/24 19:52 08/22/24 20:22 IV_INF 08/22/24 21:51 25 mls/hr NOW ONE Administration IV IV Catheter Type [Right Saline Lock Antecubital] IV Catheter Gauge [Right 18 Antecubital] Diet Orders Category Date Time Status Diabetes Consistent CHO/Heart Healthy [DIET] Nutrition 08/23/24 Breakfast Ordered Diagnostics 08/22/24 08/22/24 Range/Units 22:00 19:03 WBC 4.45 (4.4-10.8) 10^3/uL RBC 3.57 L (3.93-5.22) 10^6/uL Hgb 11.6 (11.2-15.7) g/dL Hct 32.7 L (36.0-46.0) % MCV 92 (80-95) fL MCH 32.5 (27.0-33.0) pg MCHC 35.5 (32.0-36.0) % RDW 12.4 (11.7-14.6) % Plt Count 281 (130-400) 10^3/uL MPV 8.9 (8.0-11.0) fL Immature Gran % 0.2 % Neutrophils % 74.4 % Lymphocytes % 16.4 % Monocytes % 7.6 % Eosinophils % 0.7 % Basophils % 0.7 % Nucleated RBC % 0.0 (0.0-0.3) % Absolute Neutrophils 3.31 (1.2-6.7) 10^3/uL Absolute Lymphocytes 0.73 L (1.2-3.4) 10^3/uL Absolute Monocytes 0.34 (0.1-0.8) 10^3/uL Absolute Eosinophils 0.03 (0.0-0.7) 10^3/uL Absolute Basophils 0.03 (0.0-0.2) 10^3/uL Sodium Pending 123 L* (136-145) mmol/L Potassium Pending 3.9 (3.5-5.1) mmol/L Chloride Pending 88 L (98-107) mmol/L Carbon Dioxide Pending 31.8 (21.0-32.0) mmol/L Anion Gap Pending 3.2 (3-11) mmol/L BUN Pending 20 H (7-18) mg/dL Creatinine Pending 1.6 H (0.55-1.02) mg/dL Est GFR (CKD-EPI 2020) Pending 35.57 (mL/min/1.73m2) Glucose Pending 206 H (74-106) mg/dL Calcium Pending 8.7 (8.5-10.1) mg/dL Magnesium 1.6 L (1.8-2.4) mg/dL Total Bilirubin 0.6 (0.2-1.0) mg/dL AST 37 (15-37) U/L ALT 28 (14-59) U/L Alkaline Phosphatase 176 H (46-116) U/L Troponin I 16 (<or=51) ng/L NT-Pro-B Natriuret Pep 42795 H (<300) pg/mL Total Protein 5.9 L (6.4-8.2) g/dL Albumin 2.9 L (3.4-5.0) g/dL Intake and Output - 24 Hour Total 08/22/24 18:17 thru 08/22/24 18:24 Weight 64.864 kg Falls Risk Assessment History of Falls No History 08/22/24 19:07 Contributing Factors No Factors 08/22/24 19:07 Ambulatory Aids Independent 08/22/24 19:07 Tubes/Lines None 08/22/24 19:07 Gait Evaluation No gait disturbance 08/22/24 19:07 Cognition No cognitive impairment 08/22/24 19:07 Fall Total Score 0 08/22/24 19:07 Level of Risk Standard/Low Risk 08/22/24 19:07 v v v v v v v v v Sending and/or Receiving Nurses: Please use comment section below to note any information pertinent to the patient hand-off not included above. Information / Comments: Report Taken from [facility], patient has history of cardiac, renal and fluid overload. Pitting edema +3 on lower extremities. Lasix 40 mg and Magnesium given at ER. Vital signs within normal limit, AO x 4. Patient is in roam air. All questions answered appropriately. Report received from:
[2024-08-22 21:14] VITALS: BP 140/58; PULSE 81; RESP 18; TEMP 36; O2SAT 97
[2024-08-22 21:31] VITALS: BP 126/40; PULSE 64
[2024-08-22] MEDS: Normal Saline Flush 10 ML SYR IVP (22:02)
[2024-08-22 22:19] LABS: BUN 21 mg/dL (7-18); CREATININE 1.4 mg/dL (0.55-1.02); Calcium 8.4 mg/dL (8.5-10.1); Chloride 86 mmol/L (98-107); Estimated GFR 41.75 (mL/min/1.73m2); Glucose 357 mg/dL (74-106); Potassium 4.2 mmol/L (3.5-5.1)
[2024-08-22 22:25] LABS: Sodium 119 mmol/L (136-145)
[2024-08-22] MEDS: Normal Saline 1,000 ML 100 ML IV (23:15)
[2024-08-23 00:14] LABS: PROTEIN 109.3 mg/dL
[2024-08-23 00:22] LABS: COMMENT (LAB VIEW ONLY) 4.39 mg/dL; Prot/Crea Ur Ratio 24.89
[2024-08-23 01:51] VITALS: BP 163/60; PULSE 67; RESP 19; TEMP 36.8; O2SAT 92
[2024-08-23] MEDS: Levothyroxine 175 MCG TAB PO (05:41)
[2024-08-23 07:26] LABS: Anion Gap 7.7 mmol/L (3-11); BUN 20 mg/dL (7-18); CO2 29.3 mmol/L (21.0-32.0); CREATININE 1.5 mg/dL (0.55-1.02); Calcium 8.4 mg/dL (8.5-10.1); Chloride 90 mmol/L (98-107); Estimated GFR 38.43 (mL/min/1.73m2); Glucose 280 mg/dL (74-106); Magnesium 1.5 mg/dL (1.8-2.4); Potassium 3.8 mmol/L (3.5-5.1); Sodium 127 mmol/L (136-145)
[2024-08-23 07:49] VITALS: BP 134/89; PULSE 88; RESP 20; TEMP 37.1; O2SAT 94
--- NOTE | 2024-08-23 09:11 | PDOC.CMIN ---
Date of service: 08/23/24 Time of Service: 09:11 Care Management Initial Assmt Initial Assessment Reason for Hospitalization: hyponatremia Functional Status/Living Situation Patient Presentation: Casandra was sitting up on the side of the bed visiting with her sister when CM met with her. She was pleasant in interaction and engaged easily with CM, known to her from previous admissions. Casandra was admitted again with hyponatremia as well as CHF. She reported that she was given Lasix last night and that today she feels much better. She noted that the edema that she had in her abdomen, legs and feet has vastly improved. Her sodium was 119 on admission and was 127 this morning. It is possible she will be discharged home later today. 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: N 11/17/22 11:47 Date Asked 08/21/24 08/21/24 17:10 AD Date Reviewed COLST On File at [facility] No 07/19/24 10:34 COLST Date Scanned Code Status Resuscitation Status Full Code Portal Pt does not currently have a portal and education provided: Yes Insurance Coverage/Financial Issues Insurance: [employer] Medicare Replacement Care Team Visit Care Team Role Provider Type Shirley Yu MD Primary Care Provider [facility] STAFF PHYSICIAN GENTRY Thomson Emergency Provider [employer] Luisito Jovel Admit Provider [facility] STAFF PHYSICIAN Attending Provider Discharge Potential Discharge Needs: PCP F/U Appt Anticipated Barriers to Discharge: Medical Status Patient/Family Education Needs: Review discharge instructions, discuss Ask Me Three Transportation: Private vehicle Plan: Anticipate that Casandra will return home with no new services. She will follow up with her PCP and plan of care and willl transport home with family. CM will follow and continue to assess for discharge needs. Social Determinants of Health Screening Social Determinants of health last assessed in clinic: 08/23/24 Will the Patient Participate in the Screening?: Yes Do you worry about having a steady place to live?: yes What is your living situation today?: I have housing today, but am worried about losing it Problems where you live: no known problems In the past 12 months, have you had to go without electric, gas, oil or water in your home?: no 1. Within the past 12 months, we worried whether our food would run out before we got money to buy more.: Never true 2. Within the past 12 months, the food we bought just didn't last and we didn't have money to get more.: Never true Has lack of transportation kept you from medical appointments or from doing things needed for daily living?: no Has anyone in your life made you feel unsafe or unsupported?: no How hard is it for you to pay for the very basics like food, housing, medical care, and heating? Would you say it is:: Not hard at all Do you want help finding or keeping work or a job?: I do not need or want help If for any reason you need help with day-to-day activities such as bathing, preparing meals, shopping, managing finances, etc., do you get the help you need?: I get all the help I need How often do you feel lonely or isolated from those around you?: Never Do you speak a language other than [place]ib[place]ian at home?: No Does the patient want assistance with any of the above?: No Comments: lives w/ on duplex. Health Related Social Needs Health related social needs: housing instability, housed, with risk of homelessness (Z59.811) Health related social needs details: n/a PFSH All Active Problems (Updated 08/22/24 @ 22:48 by Luisito Jovel) Hypomagnesemia (Acute) Acute hyponatremia (Acute) CHF (congestive heart failure) (Chronic) SIADH (syndrome of inappropriate ADH production) (Acute) MANISH (obstructive sleep apnea) (Chronic) Hyponatremia (Acute) Traumatic ecchymosis of chest (Acute) Acute hyperglycemia (Acute) Anemia in CKD (chronic kidney disease) (Chronic) HCAP (healthcare-associated pneumonia) (Acute) Closed fracture of left proximal humerus (Acute 06/18/23) Abnormal ankle brachial index (Acute) Concussion (Acute) Ganglion of left wrist (Acute) S/P Excision: 07/30/2021 Cyst (Acute) Right shoulder PAD (peripheral artery disease) (Chronic) Infected sebaceous cyst of skin (Acute) Former smoker (Acute) Hx of alf use of blood thinners (Chronic) COVID-19 (Acute) 05/2021 Sebaceous cyst (Acute) Contusion of left knee (Acute) Leg wound, left (Acute) Medical History (Updated 08/22/24 @ 22:48 by Luisito oJvel) Heart failure with recovered ejection fraction (HFrecEF) Infected animal bite of lower leg Struck by pig, initial encounter Pulmonary granuloma RLL Wedge Resection 06/2017 COPD (chronic obstructive pulmonary disease) Carotid stenosis CAD (coronary artery disease) Chronic renal insufficiency Hx of malignant melanoma Diabetes mellitus type 1 Pump in situ per [facility] note Hypothyroidism Hyperlipidemia Benign hypertension 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 Surgical History History of incision and drainage (~09/2022) left lower leg I&D after laceration S/P cardiac cath stent placed 4 month ago Hx of removal of cyst (~07/20/21) upper left chest back excision of melanoma on arm. Trigger Finger release (03/29/11) LEFT THUMB Stent placement LE for intermittent claudication Oophrectomy, Both Abdominal hysterectomy (~2001) Carotid endarterectomy bilateral. Social History Smoking/Tobacco Use Status: Current every day Tobacco Type: cigarettes Smoking risk assessment performed?: Yes Alcohol Intake: current Alcohol Intake frequency: a few times a week Alcohol type: hard liquor Drug use: Never Substance use type: does not use Housing: apartment Current gender identity: female Do you feel safe at home: Yes Do you feel safe in your relationship?: Yes
[2024-08-23] MEDS: Normal Saline Flush 10 ML SYR IVP ×3 (09:28→19:51)
[2024-08-23] MEDS: Furosemide 40 MG/4 ML VIAL IVP ×2 (09:28→16:36)
[2024-08-23] MEDS: Ferrous Gluconate 324 MG TAB PO (09:29)
[2024-08-23] MEDS: Sacubitril/Valsartan 24 mg/26 mg TAB 1 EACH PO ×2 (09:29→19:50)
[2024-08-23] MEDS: Aspirin E.C. 81 MG TABEC PO (09:29)
[2024-08-23] MEDS: Cholecalciferol (Vitamin D3) 1,000 UNIT TAB 1000 UNITS PO (09:29)
[2024-08-23] MEDS: amLODIPine 5 MG TAB PO (09:29)
[2024-08-23] MEDS: Apixaban 5 MG TAB PO ×2 (09:29→19:50)
[2024-08-23] MEDS: Pantoprazole 40 MG TABCR PO ×2 (09:29→19:50)
[2024-08-23] MEDS: Rosuvastatin 10 MG TAB PO (09:29)
[2024-08-23] MEDS: Spironolactone 25 MG TAB PO (09:30)
[2024-08-23] MEDS: Carvedilol 12.5 MG TAB PO ×2 (09:30→19:51)
[2024-08-23 11:33] VITALS: BP 129/63; PULSE 86; RESP 20; TEMP 36.8; O2SAT 91
[2024-08-23 11:44] VITALS: O2SAT 95
[2024-08-23] MEDS: MAGNESIUM SULFATE 2 GM/50 ML BAG IV_INF (13:54)
--- NOTE | 2024-08-23 14:21 | CHAPLAIN ---
Casandra and I remembered each other from previous admissions. Casandra had a friend visiting with her. She told me that she weighed 300 when she came in, today weighs 150, so she's feeling better. She was very pleasant. I offered continued support.
[2024-08-23] MEDS: Insulin Aspart 300 UNITS/3 ML PEN SC ×2 (14:36→17:24)
--- NOTE | 2024-08-23 14:46 | PHA.REVIEW2 ---
Pharmacy Admission Review Admission Clinical Review Admission Pharmacy Review: Hypomagnesemia (Acute) Acute hyponatremia (Acute) Hyponatremia (Acute) Sulfa (Sulfonamide Antibiotics) Allergy (Severe, Verified 07/31/24 15:31) RENAL FAILURE sulfamethoxazole (From Bactrim) Allergy (Severe, Verified 07/31/24 15:31) renal failure Penicillins Allergy (Unknown, Verified 07/31/24 15:31) Other (See Comment) trimethoprim (From Bactrim) Allergy (Verified 07/31/24 15:31) Other (See Comment) Resuscitation Status Full Code Height 5 ft 6 in Weight 75.2 kg Pharmacy Admission Review Renal Dosing Renal Dosing: pt with CKD. meds reviewed for adjustment. BUN 20 mg/dL (7-18) H 08/23/24 06:12 Creatinine 1.5 mg/dL (0.55-1.02) H 08/23/24 06:12 Medications needing adjustments: Reviewed Anticoagulation Anticoagulation: Hgb 11.6 g/dL (11.2-15.7) 08/22/24 19:03 Hct 32.7 % (36.0-46.0) L 08/22/24 19:03 Plt Count 281 10^3/uL (130-400) 08/22/24 19:03 Creatinine 1.5 mg/dL (0.55-1.02) H 08/23/24 06:12 Medications: Aspirin (on for PAD) Therapeutic Anticoagulation: Reviewed (on apixaban for PAD) Opiate Usage Evaluate Pain Scale/Pains Meds: N/A Relevant Labs Relevant Labs: mg repleted. Sodium 127 mmol/L (136-145) L 08/23/24 06:12 Potassium 3.8 mmol/L (3.5-5.1) 08/23/24 06:12 Chloride 90 mmol/L (98-107) L 08/23/24 06:12 Magnesium 1.5 mg/dL (1.8-2.4) L 08/23/24 06:12 Electrolytes, C-Reactive P, ESR: Reviewed (Na trending back up) DM Control DM Control: Intervened Insulin Dosing, Diabetic Medication: pt using own insulin pump (ordered) plus insulin aspart sliding scale for additional coverage. ZI=[id number]. Cardiac Review Cardiac Review: Troponin I 16 ng/L (<or=51) 08/22/24 19:03 NT-Pro-B Natriuret Pep 57662 pg/mL (<300) H 08/22/24 19:03 BP, HR, EF%: Reviewed Home Meds Home Med List reviewed: Reviewed Relevent Home Meds Not ordered & why?: on all home meds Current Meds Current Medication Order Review: Reviewed Pharmacy Antibiotic Review Relevant Labs: n/a
--- NOTE | 2024-08-23 15:03 | DSE_ITS ---
Date of service: 08/23/24 Time of Service: 15:03 DS: Diagnosis Discharge Diagnosis (1) Hyponatremia: Status: Acute (2) Hypomagnesemia: Status: Acute Discharge Plan Disposition Patient Disposition: Home Condition: Improving Discharge Details Reason For Visit: Hyponatremia, chf Admit Date/Time: 08/22/24 20:23 Admit Provider: Luisito Jovel Attending Provider: Luisito Jovel Primary Care Provider: Shirley Yu V Hospital Course Hospital Course: Hospital Course: The patient is a 63-year-old female with a history of recurrent hyponatremia, type 1 diabetes, coronary artery disease, heart failure with recovered ejection fraction, and chronic kidney disease, who presented with increased bilateral lower extremity swelling and headaches. Hyponatremia: On admission, the patient was noted to have acute hyponatremia with sodium levels dropping to 123 mEq/L. Given her history of SIADH and hypervolemic hyponatremia, a loop diuretic was initiated, but sodium decreased further. The patient was minimally symptomatic with a headache but no confusion or dizziness. The swelling of her lower extremities was notable, but she was not experiencing the same severity of symptoms as in prior admissions. She was treated with Normal Saline, and sodium improved to 127 mEq/L by discharge. Fluid restriction was advised. The patient was also prescribed sodium chloride tablets for discharge. Heart Failure: The patient has a history of heart failure with a recovered ejection fraction (LVEF improved from 30% to 45%, as per the recent echocardiogram). There were signs of hypervolemia, and diuretic therapy was adjusted as per her cardiology recommendations. She remains on her guideline-directed medical therapy. Diabetes Mellitus Type 1: The patient continues to use an insulin pump, which she prefers. We will monitor her glucose levels with ACHS fingerstick measurements, and her diabetes management will continue as usual. Hypomagnesemia: Hypomagnesemia was addressed with 2g IV magnesium supplementation. Other Medical Conditions: * CAD: The patient is on appropriate cardiac medications and is not symptomatic. * CKD: Her renal function is stable at baseline (estimated GFR: 35.57) * PAD and MANISH: She remains on apixaban for PAD and is using home CPAP for MANISH. Discharge Medications: * Sodium Chloride Tablets ? one tab twice a day * Furosemide ? Continue at 80 mg daily * Spironolactone ? 25 mg daily * Carvedilol ? 12.5 mg BID * Sacubitril/Valsartan ? 24/26 mg BID * Apixaban ? 5 mg BID * Insulin (Aspart and Glargine) ? As per home regimen * Other routine medications as noted in her home regimen (e.g., Aspirin, Levothyroxine, Rosuvastatin, Pantoprazole) Instructions: * Sodium Chloride Tablets: Continue as prescribed to help maintain sodium levels. * Fluid Restrictions: Monitor daily fluid intake to avoid worsening edema. * Monitor for Symptoms: Continue monitoring for signs of worsening edema, headache, or confusion. If symptoms worsen, contact healthcare provider. * Follow-Up Appointments: * Follow up with PCP in 1 week * Labs: Monitor electrolytes and renal function - ordered for next week * Weight: Daily weight tracking advised to assess for changes in volume status. Home Meds and New Rx's Prescriptions: New Thermotabs 287-180-15 mg tablet 1 tab PO BID Qty: 60 0RF Continued rosuvastatin 10 mg tablet 10 mg PO DAILY cholecalciferol (vitamin D3) [Vitamin D3] 1,000 UNIT capsule 1,000 unit PO DAILY humalog pump 1 unit subcut 31/10 Patient Comments: Not set up yet albuterol sulfate 90 mcg/actuation HFA aerosol inhaler 2 puff inhalation Q6H PRN magnesium oxide 250 mg magnesium tablet 500 mg PO QPM ferrous gluconate 324 mg (37.5 mg iron) tablet 324 mg PO DAILY furosemide 20 mg tablet 20 mg PO DAILY aspirin 81 MG tablet,delayed release (DR/EC) 81 mg PO DAILY acetaminophen 500 mg tablet 1,000 mg PO Q8H PRN (Reason: pain) Qty: 60 3RF insulin aspart U-100 [Novolog U-100 Insulin aspart] 100 unit/mL solution 1.4 unit subcut TID Patient Comments: INJECT 1.4 UNITS CONTINUOUSLY WITH BOLUS BEFORE MEALS Dme 1 1.73 m2 SQ ONB PRN PRNQty: 50 0RF amlodipine 5 mg tablet 5 mg PO DAILY Patient Comments: TAKE ONE TABLET BY MOUTH EVERY DAY pantoprazole 40 mg tablet,delayed release (DR/EC) 40 mg PO BID Patient Comments: TAKE ONE TABLET BY MOUTH TWICE A DAY levothyroxine 175 mcg tablet 175 mcg PO DAILY Patient Comments: TAKE ONE TABLET BY MOUTH EVERY DAY Eliquis 5 mg tablet 5 mg PO BID Entresto 24-26 mg tablet 1 tab PO BID carvedilol 12.5 mg tablet 12.5 mg PO BID insulin glargine [Lantus Solostar U-100 Insulin] 100 unit/mL (3 mL) Insulin Pen 15 unit subcut HS Qty: 0 0RF spironolactone 25 mg tablet 25 mg PO DAILY Patient Comments: TAKE ONE TABLET BY MOUTH EVERY DAY furosemide 80 mg tablet 80 mg PO DAILY Patient Comments: TAKE ONE TABLET BY MOUTH EVERY DAY Rx Instructions: Pt was unaware of this change, has not picked this up folic acid 1 mg tablet Patient Comments: TAKE ONE TABLET BY MOUTH EVERY DAY Discharge Instructions Instructions: Hyponatremia, Hypomagnesemia Additional Instructions: . Follow-up Appointments * Schedule a follow-up appointment with your healthcare provider in 1?2 weeks to recheck your sodium and magnesium levels. * If you're seeing a specialist, such as a forensic sergeant or pier master assistant, keep your scheduled appointments. 2. Sodium and Magnesium Levels * Hyponatremia: A sodium level below 135 mEq/L can cause symptoms like headache, nausea, confusion, or seizures. Make sure to take any prescribed medication to help normalize your sodium levels. * Hypomagnesemia: Low magnesium levels can lead to symptoms like muscle cramps, weakness, or irregular heartbeats. Make sure to take any prescribed medication to help normalize your magnesium levels. 3. Medications * Sodium Supplements * Take any prescribed salt tablets or sodium chloride supplements as directed. * Do not take more than the prescribed amount unless directed by your doctor, as rapid changes in sodium levels can be dangerous. * Magnesium Supplements * Make sure to take the full prescribed dose. Do not skip doses, as this can prolong your low magnesium levels. 4. Diet Recommendations * Hyponatremia: * Increase dietary sodium (salt). You can consume foods like: * Salted nuts, cheese, canned soups, processed meats, or salted crackers. * Avoid excessive water intake, as it may dilute your sodium levels further. * Discuss how much water you should be drinking with your doctor, especially if you're on diuretics. * Hypomagnesemia: * Increase magnesium-rich foods in your diet, such as: * Leafy greens, nuts (like almonds), seeds, whole grains, avocados, and bananas. * Consider magnesium-enriched foods like fortified cereals or magnesium supplements. 5. Monitoring and Symptom Watch * Monitor for signs of low sodium (hyponatremia): If you notice any of the following symptoms, seek medical attention immediately: * Severe headache * Nausea and vomiting * Confusion, delirium, or difficulty concentrating * Muscle weakness or cramps * Seizures * Extreme fatigue or dizziness * Monitor for signs of low magnesium (hypomagnesemia): Watch for these symptoms: * Muscle weakness, spasms, or cramps * Heart palpitations or irregular heartbeats * Nausea, vomiting, or loss of appetite * Tremors or seizures 6. Activity and Lifestyle * Fluid Balance: Excessive water consumption can worsen hyponatremia. * Limit fluid intake as advised by your healthcare provider. * If you sweat a lot (exercise, hot weather), you may need extra salt, but check with your doctor first. * Physical Activity: Gradually resume normal activities, but if you?re feeling weak, dizzy, or lightheaded, take it easy and rest. Avoid strenuous exercise until your electrolytes are fully balanced. 7. Medication Adjustments * Discuss with your doctor about adjusting the dose of your diuretics or switching medications. * Monitor kidney function regularly if you're on diuretics, as kidney problems can exacerbate electrolyte imbalances. 8. Emergency Care * If you experience any of the following symptoms, call 911 or go to the emergency room immediately: * Severe headache, confusion, or inability to stay awake * Seizures * Chest pain, irregular heartbeat, or severe dizziness * Uncontrollable muscle twitching or spasms * Severe weakness or inability to stand or walk 9. Other Considerations * Alcohol: Limit alcohol intake, as it can affect your sodium and magnesium balance. * Paro-fba-Rrqwhpo Medications: Some medications can interfere with sodium and magnesium levels (e.g., NSAIDs, laxatives). Always check with your healthcare provider before taking any hahi-tjb-ujwbirh drugs. Stand Alone Forms: Nursing Discharge Form Referrals: Shirley Yu MD [Primary Care Provider] - (I called your PCP office and left a voicemail for them to call you back to set up appointment for within 1 to 2 weeks.) Activity:: Activity as Tolerated Equipment/Supplies:: Blood Glucose Monitor Diet:: Diabetic/heart healthy Discharge Orders Discharge Orders: Discharge Order (Routine); Ordered 08/23/24 Ordered By: Johanna Jung Other Ambulatory Orders: Basic Metabolic Panel (Routine) Timeframe: 1 Week Facility: [facility] - Location: Laboratory Outpatient - [facility] Ordered By: Johanna Jung DS: Summary Time Spent with Patient providing and/or coordinating discharge services: Greater than 30 minutes Status at Discharge Functional status at discharge: independent ambulation Overall status at discharge: patient is back to baseline Mental Status: mental status grossly normal Speech and Movement: speech and movement normal Mood: congruent mood Affect: normal affect Quality:SDOH Health Related Social Needs: Health related social needs housing instability, house d, with risk of homelessness (Z59.811) Health related social needs details n/a, Health related social needs details: n/a Referrals and interventions: n/a Exam Const General: cooperative, no acute distress and ill appearing chronically Orientation: alert, awake and oriented x3 HENMT Head: normal to inspection, normocephalic and atraumatic Chest Chest: normal inspection of the chest Resp Effort & Inspection: normal respiratory effort Cardio Rate: regular rate Rhythm: regular rhythm GI Inspection: normal to inspection Palpation: soft Auscultation: normal bowel sounds Skin General skin exam: ecchymosis Neuro General: patient alert, patient awake and patient oriented x3 Extrem General: normal to inspection and full ROM Psych Mental Status: mental status grossly normal Speech and Movement: speech and movement normal Mood: congruent mood Affect: normal affect DS: Data Vitals/I&O Vitals and I&O: Vital Signs Temperature 36.8 C 08/23/24 11:33 Temperature Source Temporal Artery Scan 08/23/24 11:33 Pulse 86 08/23/24 11:33 Respiratory Rate 20 08/23/24 11:33 Respiratory Effort Normal, Non-Labored 08/22/24 21:14 Respiratory Depth Normal 08/22/24 21:14 Respiratory Pattern Normal 08/22/24 21:14 Blood Pressure 129/63 08/23/24 11:33 Blood Pressure Mean 85 08/23/24 11:33 Blood Pressure Position Sitting 08/22/24 18:24 Pulse Oximetry 95 08/23/24 11:44 Oxygen Delivery Method Room Air 08/23/24 11:44 Oxygen Flow Rate 0 08/23/24 11:44 Pain Level 0 08/23/24 07:49 Intake & Output 08/22/24 08/23/24 08/23/24 23:59 11:59 23:59 Intake Total 1110 / 1110 Output Total 3075 / 4000 925 / 4000 Balance -1965 / -2890 -925 / -2890 Weight 73.255 kg 75.2 kg Intake: IV 1000 / 1000 Oral 110 / 110 Output: Urine 3075 / 4000 925 / 4000 Other: Urine Color Yellow Yellow Urine Appearance Clear Clear Urine Odor Normal Comment Patient used bedside commode ind. Data Completed and Pending Labs on day of discharge: Labs from last 24 hours 08/23/24 14:40: Glucose Pending 08/23/24 06:12: Sodium 127 L, Potassium 3.8, Chloride 90 L, Carbon Dioxide 29.3, Anion Gap 7.7, BUN 20 H, Creatinine 1.5 H, Est GFR (CKD-EPI 2020) 38.43, Glucose 280 H, Calcium 8.4 L, Magnesium 1.5 L 08/22/24 23:15: Ur Random Creatinine 4.39, U Random Total Protein 109.3, U [place] Prot/Creat Ratio 24.89 08/22/24 22:00: Sodium 119 L*, Potassium 4.2, Chloride 86 L, Carbon Dioxide 27.0, Anion Gap 6.0, BUN 21 H, Creatinine 1.4 H, Est GFR (CKD-EPI 2020) 41.75, Glucose 357 H, Calcium 8.4 L 08/22/24 19:03: WBC 4.45, RBC 3.57 L, Hgb 11.6, Hct 32.7 L, MCV 92, MCH 32.5, MCHC 35.5, RDW 12.4, Plt Count 281, MPV 8.9, Immature Gran % 0.2, Neutrophils % 74.4, Lymphocytes % 16.4, Monocytes % 7.6, Eosinophils % 0.7, Basophils % 0.7, Nucleated RBC % 0.0, Absolute Neutrophils 3.31, Absolute Lymphocytes 0.73 L, Absolute Monocytes 0.34, Absolute Eosinophils 0.03, Absolute Basophils 0.03, Sodium 123 L*, Potassium 3.9, Chloride 88 L, Carbon Dioxide 31.8, Anion Gap 3.2, BUN 20 H, Creatinine 1.6 H, Est GFR (CKD-EPI 2020) 35.57, Glucose 206 H, Calcium 8.7, Magnesium 1.6 L, Total Bilirubin 0.6, AST 37, ALT 28, Alkaline Phosphatase 176 H, Troponin I 16, NT-Pro-B Natriuret Pep 52127 H, Total Protein 5.9 L, Albumin 2.9 L PFSH All Active Problems (Updated 08/22/24 @ 22:48 by Luisito Jovel) Hypomagnesemia (Acute) Acute hyponatremia (Acute) CHF (congestive heart failure) (Chronic) SIADH (syndrome of inappropriate ADH production) (Acute) MANISH (obstructive sleep apnea) (Chronic) Hyponatremia (Acute) Traumatic ecchymosis of chest (Acute) Acute hyperglycemia (Acute) Anemia in CKD (chronic kidney disease) (Chronic) HCAP (healthcare-associated pneumonia) (Acute) Closed fracture of left proximal humerus (Acute 06/18/23) Abnormal ankle brachial index (Acute) Concussion (Acute) Ganglion of left wrist (Acute) S/P Excision: 07/30/2021 Cyst (Acute) Right shoulder PAD (peripheral artery disease) (Chronic) Infected sebaceous cyst of skin (Acute) Former smoker (Acute) Hx of retirement use of blood thinners (Chronic) COVID-19 (Acute) 05/2021 Sebaceous cyst (Acute) Contusion of left knee (Acute) Leg wound, left (Acute) Medical History (Updated 08/22/24 @ 22:48 by Luisito Jovel) Heart failure with recovered ejection fraction (HFrecEF) Infected animal bite of lower leg Struck by pig, initial encounter 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 Surgical History History of incision and drainage (~09/2022) left lower leg I&D after laceration S/P cardiac cath stent placed 4 month ago Hx of removal of cyst (~07/20/21) upper left chest back excision of melanoma on arm. Trigger Finger release (03/29/11) LEFT THUMB Stent placement LE for intermittent claudication Oophrectomy, Both Abdominal hysterectomy (~2001) Carotid endarterectomy bilateral. Social History Smoking/Tobacco Use Status: Current every day Tobacco Type: cigarettes Smoking risk assessment performed?: Yes Alcohol Intake: current Alcohol Intake frequency: a few times a week Alcohol type: hard liquor Drug use: Never Substance use type: does not use Housing: apartment Current gender identity: female Do you feel safe at home: Yes Do you feel safe in your relationship?: Yes Time Spent with Patient Time Spent with Patient: 45-69 minutes Time was spent: preparing to see the patient(eg.review tests), ordering medications,tests, procedures, referring, communicating with other health life care planner, indepentently interpreting results, counseling the patient and care coordination
[2024-08-23 15:05] LABS: Glucose 485 mg/dL (74-106)
[2024-08-23 15:45] VITALS: BP 119/72; PULSE 84; RESP 20; TEMP 36.9; O2SAT 94
[2024-08-23] MEDS: Insulin Glargine 300 UNITS/3 ML PEN 15 UNITS SC (18:38)
--- NOTE | 2024-08-23 18:42 | NUR.NOTE ---
Nursing Note: Pt refused hospital insulin multiple times. 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 Pt's insulin began to rise on 08/22, above 300, and then above 400. Pt then consented to hospital insulin. Multiple aspart admin did not bring insulin back into safe range. Provider ordered admin of glargine with hope to d/c around 20:00 if insulin returned to safe range.
[2024-08-23 19:44] VITALS: BP 140/63; PULSE 73; RESP 18; TEMP 37; O2SAT 98
[2024-08-23] MEDS: Magnesium Oxide 400 MG TAB 200 MG PO (19:50)
== END 2024-08-23 20:55 | disposition home or self-care (01) | DRG 644 ==
LOC: ER 18:44 → MS 21:12
PROVIDERS: Admitting Provider Family Medicine; Emergency Provider Physician Assistant; PCP Family Medicine; Responsible Provider Nurse Practitioner Family; Visit Provider Family Medicine
DX: E22.2 Syndrome of inappropriate secretion of antidiuretic hormone (principal); I50.32 Chronic diastolic (congestive) heart failure; N18.32 Chronic kidney disease, stage 3b; E83.42 Hypomagnesemia; E10.22 Type 1 diabetes mellitus with diabetic chronic kidney disease; I73.9 Peripheral vascular disease, unspecified; G47.33 Obstructive sleep apnea (adult) (pediatric); I25.10 Atherosclerotic heart disease of native coronary artery without angina pectoris; E03.9 Hypothyroidism, unspecified; Z79.01 Long term (current) use of anticoagulants; R51.9 Headache, unspecified; D63.1 Anemia in chronic kidney disease; Z87.891 Personal history of nicotine dependence; J44.9 Chronic obstructive pulmonary disease, unspecified; Z90.2 Acquired absence of lung [part of]; Z96.41 Presence of insulin pump (external) (internal); E78.5 Hyperlipidemia, unspecified; Z86.73 Personal history of transient ischemic attack (TIA), and cerebral infarction without residual deficits
CPT/HCPCS: 00123; 36415; 80048; 80053; 82947; 93005; 96365; 96366; 96375; 99285; 71046; 82565; 83735; 83880; 84156; 84484; 85025; 93010; 99223; 99239; J1815; J1938; J3475

== ENCOUNTER 2024-08-30 19:06 | Outpatient (CLI) | payer MEDICARE, MEDICAID, SELFPAY ==
[2024-08-30 16:51] LABS: Anion Gap 3.6 mmol/L (3-11); BUN 20 mg/dL (7-18); CO2 33.4 mmol/L (21.0-32.0); CREATININE 1.5 mg/dL (0.55-1.02); Calcium 8.6 mg/dL (8.5-10.1); Chloride 88 mmol/L (98-107); Estimated GFR 38.43 (mL/min/1.73m2); Glucose 122 mg/dL (74-106); Potassium 3.9 mmol/L (3.5-5.1); Sodium 125 mmol/L (136-145)
== END 2024-08-30 19:07 | disposition home or self-care (01) ==
LOC: LBO 19:07
PROVIDERS: PCP Family Medicine; Visit Provider Nurse Practitioner Family
DX: E83.42 Hypomagnesemia (principal); E87.1 Hypo-osmolality and hyponatremia
CPT/HCPCS: 36415; 80048

== ENCOUNTER 2024-09-18 22:24 | Outpatient (REF) | payer MEDICARE, MEDICAID, SELFPAY ==
[2024-09-18 21:29] LABS: Anion Gap 3.6 mmol/L (3-11); BUN 24 mg/dL (7-18); CO2 30.4 mmol/L (21.0-32.0); CREATININE 1.6 mg/dL (0.55-1.02); Calcium 8.5 mg/dL (8.5-10.1); Chloride 92 mmol/L (98-107); Estimated GFR 35.57 (mL/min/1.73m2); Glucose 258 mg/dL (74-106); Potassium 5.3 mmol/L (3.5-5.1); Sodium 126 mmol/L (136-145)
== END 2024-09-18 22:25 | disposition home or self-care (01) ==
LOC: NCHCN 22:24
PROVIDERS: PCP Family Medicine; Visit Provider Family Medicine
DX: N18.9 Chronic kidney disease, unspecified (principal)
CPT/HCPCS: 80048

== ENCOUNTER 2024-10-09 15:21 | Outpatient (CLI) | payer MEDICARE, MEDICAID, SELFPAY ==
[2024-10-09 16:11] LABS: Anion Gap 6.0 mmol/L (3-11); BUN 22 mg/dL (7-18); CO2 30.0 mmol/L (21.0-32.0); Calcium 8.5 mg/dL (8.5-10.1); Chloride 96 mmol/L (98-107); Estimated GFR 38.43 (mL/min/1.73m2); Glucose 130 mg/dL (74-106); Potassium 5.1 mmol/L (3.5-5.1); Sodium 132 mmol/L (136-145)
[2024-10-09 16:36] LABS: Magnesium 1.8 mg/dL (1.8-2.4)
== END 2024-10-09 15:22 | disposition home or self-care (01) ==
LOC: LBO 15:22
PROVIDERS: Family Medicine; PCP Family Medicine; Visit Provider Family Medicine
DX: E87.1 Hypo-osmolality and hyponatremia (principal); E87.8 Other disorders of electrolyte and fluid balance, not elsewhere classified
CPT/HCPCS: 36415; 80048; 83735

== ENCOUNTER 2024-11-02 07:34 | Emergency (ER) | payer MEDICARE, MEDICAID, SELFPAY ==
[2024-11-02] VITALS (82 sets, daily range): BP systolic 77–146; BP diastolic 22–88; PULSE 86–195; RESP 0–26; TEMP 35.6; O2SAT 90–98
--- NOTE | 2024-11-02 07:30 | RT.EKG_ITS ---
APPROVED REPORT Exam: Resting ECG Reason for Exam: [facility] Patient Location: E HR:87 bpm ECG Measurements Heart Rate 87 AXIS MT 218 P 93 QRSd 120 QRS -41 QT 422 T 88 QTc 507 Conclusion Sinus rhythm...normal P axis, V-rate 60- 99 Borderline prolonged MT interval...MT >212, V-rate 50- 90 Incomplete left bundle branch block...QRSd>110mS, terminal axis(-90,-1) Left ventricular hypertrophy...multiple LVH criteria
--- NOTE | 2024-11-02 07:30 | DI.RAD_ITS ---
Exam(s) XR CHEST 2V PA LATERAL EXAM: XR CHEST 2V PA LATERAL CLINICAL HISTORY: ?pneumonia TECHNIQUE: 2D digital imaging was performed. Two views. COMPARISON: CR,XR XR CHEST 2V PA LATERAL from 08/22/2024 FINDINGS: Exam is limited by under penetration. Overlapping densities outside of the patient on the lateral view. HEART: Mildly enlarged. Aorta: Not dilated. PULMONARY VASCULATURE: Normal. MEDIASTINUM: Unremarkable. LUNGS: Chronic interstitial markings. PLEURAL SPACE: Minimal blunting at the right costophrenic angle could indicate tiny effusion. No definite infiltrate or pulmonary edema. No pneumothorax. BONE:Unremarkable for age. SOFT TISSUES: Unremarkable. IMPRESSION: Tiny right pleural effusion. DATA REPOSITORY: RADIATION DOSE DELIVERED:
--- NOTE | 2024-11-02 07:30 | DI.CT_ITS ---
Exam(s) CT HEAD WO EXAM: CT HEAD WO CLINICAL HISTORY: ams. TECHNIQUE: Imaging Protocol: Axial computed tomography images with coronal and sagittal reformatted images were created and reviewed COMPARISON: CT CT HEAD CERVICAL SPINE WO from 06/27/2024 FINDINGS: Ventricles and Extra axial spaces: Normal in size and morphology for the patient's age. Hemorrhage: None. Cerebral parenchyma: No evidence of acute infarct or mass. Midline shift: None. Brainstem/Cerebellum: Normal. Bones: No skull or facial fractures. Visualized Paranasal sinuses:Mild mucosal thickening Mastoids: Clear. Soft Tissues: Unremarkable. ORBITS: Unremarkable. PITUITARY: Not enlarged. IMPRESSION: No acute intracranial process. The preliminary [facility] report was reviewed. RADIATION DOSE DELIVERED: Total DLP DATA REPOSITORY: All CT scans at this facility are submitted to the National Radiology Data Registry (NRDR) Dose Index Registry (DIR) with the [employer] ([employer]). RADIATION OPTIMIZATION: All CT scans at this facility use at least one of these dose optimization techniques: automated exposure control; mA and/or kV adjustment per patient size (includes targeted exams where dose is matched to clinical indication); or iterative reconstruction.
[2024-11-02] MEDS: Normal Saline 1,000 ML 1000 ML IV ×2 (07:40→08:12)
--- NOTE | 2024-11-02 07:45 | DI.CT_ITS ---
Exam(s) CT ABDOMEN PELVIS WO EXAM: CT ABDOMEN PELVIS WO CLINICAL HISTORY: ?renal obstruction. TECHNIQUE: Imaging Protocol: Axial computed tomography images with coronal and sagittal reformatted images were created and reviewed. Oral: no COMPARISON: CT CT CHEST PE ABD PELVIS W from 04/17/[address] CHEST WO from 06/27/2024 CR,XR XR PORTABLE CHEST AP POST LINE from 11/02/2024 CR,XR XR CHEST 2V PA LATERAL from 11/02/2024 FINDINGS: The exam is limited by streak artifact related to patient arm positioning as well as motion. Lung Bases: The heart is enlarged. There is a small right pleural effusion. There are emphysematous interstitial changes at the lung bases. No focal consolidation. Evaluation limited by motion. Liver: Normal density. No suspicious mass. Gallbladder and biliary tract: No radiodense calculus or biliary dilation. Pancreas: Not well evaluated due to artifact. Spleen: Normal. Kidneys: Normal size, contour and axis. No radiodense stones. No obstructive uropathy. No suspicious masses seen. Adrenal glands: The adrenals appear thickened. Lymph nodes: Within normal limits. Vasculature: Abdominal aorta non-dilated. Severe atherosclerotic changes of the abdominal aorta and branch vessels. Severe renal elsy or artery calcifications. Soft tissues: Severe amount of diffuse soft tissue edema. Scarring in the right groin region. Bladder: A Bernstein catheter in place. The bladder is decompressed. Not able to be evaluated. Bowel: No obstruction or bowel wall thickening. Peritoneal cavity: Small amount of ascites noted around the liver no focal collection. No mesenteric inflammatory response. Reproductive organs: Unremarkable. Bones: Mild compression fracture of the superior endplate of L2. Old bilateral rib fractures. Scoliosis and degenerative changes. IMPRESSION: No evidence of hydronephrosis. The bladder is decompressed by a Bernstein catheter. Diffuse body wall edema. Small right pleural effusion. Mild quantity of ascites. The preliminary [facility] report was reviewed. RADIATION DOSE DELIVERED: Total DLP DATA REPOSITORY: All CT scans at this facility are submitted to the National Radiology Data Registry (NRDR) Dose Index Registry (DIR) with the [employer] (ACR). RADIATION OPTIMIZATION: All CT scans at this facility use at least one of these dose optimization techniques: automated exposure control; mA and/or kV adjustment per patient size (includes targeted exams where dose is matched to clinical indication); or iterative reconstruction.
--- NOTE | 2024-11-02 07:45 | W.ED.GENAD ---
Discharge Plan Disposition Specific Acute Inpt Facility: [place] Condition: Critical Discharge Details Chief Complaint: Diabetes Clinical Impression: DKA (diabetic ketoacidosis), Septic shock, Elevated troponin Primary Care Provider: Shirley Yu V ED Provider: Rambo Shaffer Home Meds and New Rx's Prescriptions: No Action rosuvastatin 10 mg tablet 10 mg PO DAILY cholecalciferol (vitamin D3) [Vitamin D3] 1,000 UNIT capsule 1,000 unit PO DAILY humalog pump 1 unit subcut 31/10 albuterol sulfate 90 mcg/actuation HFA aerosol inhaler 2 puff inhalation Q6H PRN magnesium oxide 250 mg magnesium tablet 500 mg PO QPM ferrous gluconate 324 mg (37.5 mg iron) tablet 324 mg PO DAILY aspirin 81 MG tablet,delayed release (DR/EC) 81 mg PO DAILY acetaminophen 500 mg tablet 1,000 mg PO Q8H PRN (Reason: pain) Qty: 60 3RF insulin aspart U-100 [Novolog U-100 Insulin aspart] 100 unit/mL solution 1.4 unit subcut TID Patient Comments: INJECT 1.4 UNITS CONTINUOUSLY WITH BOLUS BEFORE MEALS Dme 1 1.73 m2 SQ ONB PRN PRNQty: 50 0RF escitalopram oxalate 5 mg tablet 5 mg PO DAILY thiamine HCl (vitamin B1) 100 mg tablet 100 mg PO DAILY Patient Comments: TAKE ONE TABLET BY MOUTH EVERY DAY sodium chloride 1,000 mg tablet,soluble 500 mg PO DAILY Patient Comments: TAKE ONE-HALF TABLET BY MOUTH EVERY DAY ejiqwraz-uvl-yomt fum-folic ac 7.5 mg iron-400 mcg tablet 1 tab PO DAILY Patient Comments: TAKE ONE TABLET BY MOUTH EVERY DAY pantoprazole 40 mg tablet,delayed release (DR/EC) 40 mg PO BID Patient Comments: TAKE ONE TABLET BY MOUTH TWICE A DAY levothyroxine 175 mcg tablet 175 mcg PO DAILY Patient Comments: TAKE ONE TABLET BY MOUTH EVERY DAY Eliquis 5 mg tablet 5 mg PO BID carvedilol 12.5 mg tablet 12.5 mg PO BID spironolactone 25 mg tablet 25 mg PO DAILY Patient Comments: TAKE ONE TABLET BY MOUTH EVERY DAY furosemide 80 mg tablet 80 mg PO DAILY Patient Comments: TAKE ONE TABLET BY MOUTH EVERY DAY folic acid 1 mg tablet 1 mg PO DAILY Patient Comments: TAKE ONE TABLET BY MOUTH EVERY DAY HPI General Mode of arrival: EMS. Date/Time Provider Initiated Documentation: 11/02/24 07:37. Limitations to Documentation: altered mental status. Information obtained by: EMS. History of Present Illness 64 year old F presents to the emergency department with the chief complaint of lethargic, described as moderate, Patient started experiencing this day(s) (3) and it has been constant. No relieving factors improve symptom(s), No exacerbating factors reported . Patient notes malaise; denies chest pain, fever/chills and shortness of breath. Patient did receive the following treatments prior to arrival, none Related Data Home Medications ?Medication ?Instructions ?Recorded ?Confirmed aspirin 81 mg tablet,delayed 81 mg PO DAILY 08/13/12 11/02/24 release Humalog Pump 1 unit subcut 31/1001/07/16 11/02/24 cholecalciferol (vitamin D3) 25 1,000 unit PO DAILY 01/07/16 11/02/24 mcg (1,000 unit) capsule (Vitamin D3) acetaminophen 500 mg tablet 1,000 mg (2 x 500 mg) PO Q8H PRN 07/20/21 11/02/24 pain #60 tabs rosuvastatin 10 mg tablet 10 mg PO DAILY 08/17/22 11/02/24 insulin aspart U-100 100 unit/mL 1.4 unit subcut TID 09/23/22 11/02/24 subcutaneous solution (Novolog U-100 Insulin aspart) pantoprazole 40 mg tablet,delayed 40 mg PO BID 06/18/23 11/02/24 release albuterol sulfate 90 mcg/actuation 2 puff inhalation Q6H PRN 02/01/24 11/02/24 aerosol inhaler ferrous gluconate 324 mg (37.5 mg 324 mg PO DAILY 02/01/24 11/02/24 iron) tablet magnesium oxide 500 mg PO QPM 02/01/24 11/02/24 apixaban 5 mg tablet (Eliquis) 5 mg PO BID 05/21/24 11/02/24 levothyroxine 175 mcg tablet 175 mcg PO DAILY 05/21/24 11/02/24 carvedilol 12.5 mg tablet 12.5 mg PO BID 05/22/24 11/02/24 Dme 1 1.73 m2 SQ ONB PRN PRN #50 SYRGS 06/15/24 11/02/24 folic acid 1 mg tablet 1 mg PO DAILY 08/22/24 11/02/24 furosemide 80 mg tablet 80 mg PO DAILY 08/22/24 11/02/24 spironolactone 25 mg tablet 25 mg PO DAILY 08/22/24 11/02/24 escitalopram oxalate 5 mg tablet 5 mg PO DAILY 11/02/24 11/02/24 pwyjweyonhej-bhtwnrgh-acql 1 tab PO DAILY 11/02/24 11/02/24 fumarate 7.5 mg-folic acid 400 mcg tablet sodium chloride 1,000 mg soluble 500 mg PO DAILY 11/02/24 11/02/24 tablet thiamine HCl (vitamin B1) 100 mg 100 mg PO DAILY 11/02/24 11/02/24 tablet Previous Rx's ?Medication ?Instructions ?Recorded acetaminophen 500 mg tablet 1,000 mg (2 x 500 mg) PO Q8H PRN 07/20/21 pain #60 tabs Dme 1 1.73 m2 SQ ONB PRN PRN #50 SYRGS 06/15/24 Allergies Allergy/AdvReac Type Severity Reaction Status Date / Time Sulfa (Sulfonamide Allergy Severe RENAL Verified 07/31/24 15:31 Antibiotics) FAILURE sulfamethoxazole (From Allergy Severe renal Verified 07/31/24 15:31 Bactrim) failure Penicillins Allergy Unknown Other (See Verified 07/31/24 15:31 Comment) trimethoprim (From Bactrim) Allergy Other (See Verified 07/31/24 15:31 Comment) General Stated Complaint: Diabetes DAVID: 2 Review of Systems All systems reviewed & are unremarkable except as noted in HPI and below Constitutional Constitutional: Denies chills, Denies fever(s) and Reports weakness Cardiovascular Cardiovascular: Denies chest pain and Denies dyspnea Respiratory Respiratory: Denies cough and Denies dyspnea Gastrointestinal Gastrointestinal: Denies abdominal pain, Denies nausea and Denies vomiting Neurologic Neurologic: Reports weakness Exam Const General: no acute distress Orientation: alert [facility] Head: normal to inspection Ears: external ears normal General nose exam: external nose normal Mouth: moist mucous membranes Eyes General: appearance normal, both eyes and all related structures Neck Neck: normal visual inspection Resp Effort & Inspection: normal respiratory effort and able to speak in complete sentences Auscultation: diminished lung sounds Cardio Jugular venous pressure: no JVD Rate: regular rate GI Palpation: soft and nontender Neuro General: patient alert and oriented Patient Orientation: Person and Place Psych Mental Status: mental status grossly normal Course Vital Signs Vital signs: Vital Signs Temperature 35.6 C L 11/02/24 07:32 Pulse 89 11/02/24 07:32 Respiratory Rate 17 11/02/24 07:32 Blood Pressure 96/24 L 11/02/24 07:32 Pulse Oximetry 94 11/02/24 07:32 Temperature 35.6 C L 11/02/24 07:32 Temperature Source Tympanic 11/02/24 07:32 Pulse 89 11/02/24 07:32 Respiratory Rate 17 11/02/24 07:32 Blood Pressure 96/24 L 11/02/24 07:32 Blood Pressure Position Sitting 11/02/24 07:32 Pulse Oximetry 94 11/02/24 07:32 Oxygen Delivery Method Room Air 11/02/24 07:32 Oxygen Flow Rate 0 11/02/24 07:32 Pain Level 0 11/02/24 07:32 Lab/Test Results Lab/Test Results: 11/02/24 07:33 Blood Blood Culture - Pending 11/02/24 07:33 Blood Blood Culture - Pending Procedure Central Line Placement Date of Procedure: 11/02/24 Time of Procedure: 10:06 Provider that performed the procedure: Rambo Shaffer Indication: Central venous access and Hypotension Patient Consented: Written Sterility: Sterile Local Anesthetic: Lidocaine 2% and With Epi Amount of anesthetic used(mL): 7 Laterality: Right Insertion Site: Internal Jugular (IJ) Central Line Type: 7 [place] Insertion Procedure: Vessel accessed with catheter over needle, catheter advanced, Guidewire placed with ease, Dermatotomy (skin cecilia) made with scalpel, Dilator placed without resistance, Introducer/Catheter placed without resistance and Guidewire removed Ultrasound: Other (used ) Medical Decision Making 64-year-old female with a history of type 1 diabetes, SIADH, chronic kidney disease hypertension, peripheral artery disease on Eliquis, who comes in with chief complaint of lethargic with EMS. Apparently she has been in bed for 2 to 3 days so the told the EMS crew. Apparently her insulin pump became disconnected at some point and was few days and blood sugar with EMS was over 500. Patient is alert and oriented to name and place on arrival but does not know the year. She denies any severe headaches, chest pain, difficulty breathing, fevers, abdominal pain, vomiting. Her mucous membranes do appear dry. She is moving all of her extremities equally though is weak globally. No signs of trauma to the head. She has diminished lung sounds at the bases bilaterally, abdomen soft and nontender. Blood pressure on arrival is in the 90s systolic. Concern for DKA, electrolyte abnormalities. Will check a CBC, CMP, lactate, procalcitonin, VBG, UA, troponins and given her heart failure history and proBNP. Will treat with IV fluids as she does seem hypovolemic. Given the change in her mental status will obtain a CT of her head though she has no headache so I feel it is unlikely she has hemorrhage. Will obtain chest x-ray to evaluate for possible infiltrates. pH 7.1 has ketones in her urine so seems consistent with DKA. Has mild leukocytosis, x-ray on my read of the chest shows possible right lower lobe infiltrate show given degree of illness will initiate antibiotics with cefepime and vancomycin as she was admitted in August. I am going to initiate Levophed infusion as well as her map is currently 46. Troponin is over 2000, she continues to deny any chest pain so I suspect this is likely demand from her DKA and likely sepsis. Will add CPK to evaluate for rhabdomyolysis. I am also can add a CT abdomen pelvis to evaluate for possible obstructive uropathy given she has an JENNA. K is 6.8 so insulin infusion initiated and will order calcium as well CT head and abdomen pelvis without emergent findings, does have evidence of infiltrate on x-ray and also at the base of the lungs on the CT. Has nonspecific small amount of ascites. I placed a right IJ without complications, unfortunately was unable to save a photo with the needle in the vessel. X-ray postprocedure my read shows adequate positioning of the central line. Second troponin is elevated over 4000, she denies any chest pain or chest pressure but given the degree of elevation I am going to initiate heparin bolus and infusion. Will discuss with [facility] about potential transfer Spoke with Dr. Cohen pulmonary/critical care attending at [facility] who reviewed the case and accepts to their facility. Repeat EKG on my read shows no STEMI Third troponin is elevated at 16,000, continues to deny any chest pain or chest pressure. Differential Diagnosis Differential Diagnosis: DKA, electrolyte abnormality, anemia Lab Data Lab results reviewed: Yes I reviewed the patient's lab results. ECG Data Attestation: I personally reviewed and interpreted this ECG (s) as follows: Prior ECG tracings: available for review Interpretation: Sinus rhythm, SC 218, no STEMI Second EKG shows sinus tachycardia rate of 100, no STEMI Quality:SDOH Health Related Social Needs: Health related social needs risk of homeless Health related social needs details n/a Critical Care Time Critical Care Time Critical Care Time: Yes Total Critical Care Time: 60 (minutes) Attestation: time spent on lab review, hemodynamic monitoring and frequent reassessments in a patient with DKA requiring an insulin fusion and also septic shock requiring norepinephrine infusion with the potential to deteriorate at any time. PFSH All Active Problems (Updated 11/02/24 @ 11:43 by Rambo Shaffer MD) Elevated troponin (Acute) Septic shock (Acute) DKA (diabetic ketoacidosis) (Acute) Hypomagnesemia (Acute) Acute hyponatremia (Acute) SIADH (syndrome of inappropriate ADH production) (Acute) Traumatic ecchymosis of chest (Acute) Acute hyperglycemia (Acute) Anemia in CKD (chronic kidney disease) (Chronic) HCAP (healthcare-associated pneumonia) (Acute) Closed fracture of left proximal humerus (Acute 06/18/23) Abnormal ankle brachial index (Acute) Concussion (Acute) Ganglion of left wrist (Acute) S/P Excision: 07/30/2021 Cyst (Acute) Right shoulder Infected sebaceous cyst of skin (Acute) Former smoker (Acute) 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) COVID-19 (Acute) 05/2021 Sebaceous cyst (Acute) Contusion of left knee (Acute) Leg wound, left (Acute) Medical History (Updated 11/02/24 @ 11:43 by Rambo Shaffer MD) CHF (congestive heart failure) MANISH (obstructive sleep apnea) Hyponatremia PAD (peripheral artery disease) Heart failure with recovered ejection fraction (HFrecEF) Infected animal bite of lower leg Struck by pig, initial encounter 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 Surgical History (Updated 08/24/24 @ 00:00 by BKG DAEMON) History of incision and drainage (~09/2022) left lower leg I&D after laceration S/P cardiac cath stent placed 4 month ago Hx of removal of cyst (~07/20/21) upper left chest back excision of melanoma on arm. Trigger Finger release (03/29/11) LEFT THUMB Stent placement LE for intermittent claudication Oophrectomy, Both Abdominal hysterectomy (~2001) Carotid endarterectomy bilateral. Social History Smoking/Tobacco Use Status: Current every day Tobacco Type: cigarettes Smoking risk assessment performed?: Yes Alcohol Intake: current Alcohol Intake frequency: a few times a week Alcohol type: hard liquor Drug use: Never Substance use type: does not use Housing: apartment Current gender identity: female Do you feel safe at home: Yes Do you feel safe in your relationship?: Yes
[2024-11-02 07:50] LABS: BE (Venous) -21 mmol/L (-2-3); HCO3 (Venous) 8 mmol/L (23-28); O2 Sat (Venous) 86 %; TCO2 (Venous) 8 mmol/L (24-29); pCO2 (Venous) 25 mmHg (41-51); pO2 (Venous) 70 mmHg
[2024-11-02 07:59] LABS: Abs Immature Grans 0.16 10^3/uL (0.0-0.06); HCT 37.4 % (36.0-46.0); HGB 12.0 g/dL (11.2-15.7); Immature Grans % 1.3 %; MCH 32.1 pg (27.0-33.0); MCHC 32.1 % (32.0-36.0); MCV 100 fL (80-95); MPV 9.8 fL (8.0-11.0); Platelet Count 318 10^3/uL (130-400); RBC 3.74 10^6/uL (3.93-5.22); RDW 14.6 % (11.7-14.6); RDW-SD 53.4 fL; WBC 12.27 10^3/uL (4.4-10.8)
[2024-11-02 08:06] LABS: INR 1.0 (0.9-1.1); PTT Activated 23.2 sec (20.6-30.2); Prothrombin Time 10.4 sec (9.1-11.1)
[2024-11-02 08:19] LABS: ALT 24 U/L (14-59); AST 28 U/L (15-37); Albumin 2.1 g/dL (3.4-5.0); Alkaline Phosphatase 117 U/L (46-116); Anion Gap 27.6 mmol/L (3-11); BUN 59 mg/dL (7-18); Bilirubin, Total 0.7 mg/dL (0.2-1.0); CO2 10.4 mmol/L (21.0-32.0); Calcium 7.9 mg/dL (8.5-10.1); Chloride 92 mmol/L (98-107); Estimated GFR 14.31 (mL/min/1.73m2); Magnesium 2.2 mg/dL (1.8-2.4); NT-proBNP 21395 pg/mL (<300); Sodium 130 mmol/L (136-145); TSH (W/Ref FT4) 34.05 uIU/mL (0.36-3.74); Total Protein 5.2 g/dL (6.4-8.2)
[2024-11-02 08:28] LABS: COVID-19 PCR Negative (Negative); RSV PCR Negative (Negative)
[2024-11-02 08:31] LABS: Glucose 100 mg/dL (Negative)
[2024-11-02 08:32] LABS: Troponin I 2313 ng/L (<or=51)
[2024-11-02 08:33] LABS: Glucose 594 mg/dL (74-106); Potassium 6.8 mmol/L (3.5-5.1)
[2024-11-02 08:37] LABS: Procalcitonin 0.59 ng/mL
[2024-11-02 08:41] LABS: C & S Indicated? No; WBC 0-2 HPF (0-5)
[2024-11-02] MEDS: Norepinephrine in D5W 8 MG/250 ML BAG 9.375 MG IV (08:46)
[2024-11-02] MEDS: CEFEPIME 2 GM in Normal Saline 100 ML IVPB (08:53)
[2024-11-02] MEDS: INSULIN REGULAR IN 0.9 % NACL 100 UNIT/100 ML BAG IVINF (08:57)
[2024-11-02 09:01] LABS: Creatine Kinase 112 U/L (26-192)
[2024-11-02 09:07] LABS: Troponin I 4290 ng/L (<or=51)
[2024-11-02] MEDS: Calcium Gluconate 4.65 MEQ/10 ML VIAL 4.65 MG IVP (09:08)
--- NOTE | 2024-11-02 09:14 | NUR.NOTE ---
Nursing Note: unable to give medication list. Her PCP office is [facility]. [place] does not have access to [facility]. supervisor scrap preparation paged and does not have access to her chart. Alayna Starr in [facility] to fax her most updated med list that they have.
--- NOTE | 2024-11-02 09:26 | DI.VRAD_ITS ---
PROCEDURE INFORMATION: Exam: CT Head Without Contrast Exam date and time: 11/02/2024 8:12 AM Age: 64 years old Clinical indication: Other: AMS TECHNIQUE: Imaging protocol: Computed tomography of the head without contrast. Radiation optimization: All CT scans at this facility use at least one of these dose optimization techniques: automated exposure control; mA and/or kV adjustment per patient size (includes targeted exams where dose is matched to clinical indication); or iterative reconstruction. COMPARISON: CT HEAD CERVICAL SPINE WO 06/27/2024 8:51 PM FINDINGS: Brain: No acute intracranial hemorrhage.. There is mild diffuse heterogeneity of the white matter attenuation, consistent with chronic white matter ischemic changes. Mild cerebral atrophy Cerebral ventricles: No ventriculomegaly. Paranasal sinuses: Mucoperiosteal thickening in the ethmoid sinuses and maxillary sinuses consistent with minimal sinusitis Mastoid air cells: Visualized mastoid air cells are well aerated. Bones: Unremarkable. No acute fracture. Soft tissues: Unremarkable. IMPRESSION: No acute intracranial hemorrhage.. Dictated and Authenticated by: Pelon Najera MD. Orderin Deena Ricks MD
--- NOTE | 2024-11-02 09:27 | DI.VRAD_ITS ---
PROCEDURE INFORMATION: Exam: XR Chest Exam date and time: 11/02/2024 8:25 AM Age: 64 years old Clinical indication: Other: SOB TECHNIQUE: Imaging protocol: Radiologic exam of the chest. Views: 2 views. COMPARISON: CR XR CHEST 2V PA LATERAL 08/22/2024 7:30 PM FINDINGS: Lungs: Mild opacity in the right lower lobe may represent atelectasis or pneumonia Pleural spaces: Mild blunting the right costophrenic angle may represent small pleural reaction or pleural effusion.. Heart/Mediastinum: Unremarkable. No cardiomegaly. Bones/joints: Unremarkable. IMPRESSION: Mild opacity in the right lower lobe may represent atelectasis or pneumonia Mild blunting the right costophrenic angle may represent small pleural reaction or pleural effusion.. Dictated and Authenticated by: Pelon Najera MD. Orderin Deena Ricks MD
[2024-11-02] MEDS: Lactated Ringers 1,000 ML 150 ML IV (09:30)
[2024-11-02] MEDS: INSULIN REGULAR IN 0.9 % NACL 100 UNIT/100 ML BAG 7 UNIT IVINF (09:30)
[2024-11-02] MEDS: VANCOMYCIN/WATER (PEG) 1 GM/200 ML BAG IVPB (09:31)
[2024-11-02] MEDS: Normal Saline-STERILE FIELD 0.9% 10 ML SYR ×2 (09:32)
--- NOTE | 2024-11-02 09:35 | DI.VRAD_ITS ---
PROCEDURE INFORMATION: Exam: CT Abdomen And Pelvis Without Contrast Exam date and time: 11/02/2024 9:13 AM Age: 64 years old Clinical indication: Other: ? Renal obstruction TECHNIQUE: Imaging protocol: Computed tomography of the abdomen and pelvis without contrast. Radiation optimization: All CT scans at this facility use at least one of these dose optimization techniques: automated exposure control; mA and/or kV adjustment per patient size (includes targeted exams where dose is matched to clinical indication); or iterative reconstruction. COMPARISON: CR XR HIP LT COMPLETE AP PELVIS 06/25/2019 2:31 PM FINDINGS: Tubes, catheters and devices: Transvenous pacemaker leads in the heart Lungs: Consolidation in both lower lobes may represent atelectasis or pneumonia.. Pleural spaces: Mild right pleural effusion.. Liver: Normal. No mass. Gallbladder and biliary ducts: The gallbladder is unremarkable Pancreas: Inflammatory changes around the pancreas may represent pancreatitis in the appropriate clinical setting.. Spleen: Normal. No splenomegaly. Adrenal glands: Normal. No mass. Kidneys and ureters: There is no evidence of renal or ureteral calcifications. Extensive renal vascular calcifications and mesenteric artery calcifications No hydronephrosis Stomach and bowel: Unremarkable. No obstruction. No mucosal thickening. Appendix: No evidence of appendicitis. Intraperitoneal space: Mild ascites in the abdomen and pelvis. Vasculature: See Kidneys and ureters finding. Lymph nodes: Unremarkable. No enlarged lymph nodes. Urinary bladder: Bernstein catheter in the bladder Reproductive: Unremarkable as visualized. Bones/joints: Healed bilateral rib fractures Soft tissues: Edema in the subcutaneous fat. Edema in the subcutaneous fat Other findings: Motion artifact degrades images IMPRESSION: 1. Mild right pleural effusion.. 2. Consolidation in both lower lobes may represent atelectasis or pneumonia.. 3. Mild ascites in the abdomen and pelvis. 4. Inflammatory changes around the pancreas may represent pancreatitis in the appropriate clinical setting.. 5 no hydronephrosis Dictated and Authenticated by: Pelon Najera MD. Orderin Deena Ricks MD
[2024-11-02 09:47] LABS: Lipase 13 U/L (<78)
--- NOTE | 2024-11-02 10:00 | DI.RAD_ITS ---
Exam(s) XR PORTABLE CHEST AP POST LINE EXAM: XR PORTABLE CHEST AP POST LINE CLINICAL HISTORY: central line placement TECHNIQUE: 2D digital imaging was performed. COMPARISON: CR,XR XR CHEST 2V PA LATERAL from 11/02/2024 FINDINGS: A right-sided internal jugular catheter has been placed with the tip in the superior aspect of the right atrium. LUNGS: There are increased interstitial markings compared with the prior exam which may in part be secondary to technique. Pulmonary edema not excluded. There is underlying interstitial changes. There is again noted be blunting at the left costophrenic anger. HEART: Enlarged AORTA: Normal diameter. BONES: Unremarkable for age. Soft tissues: Unremarkable. IMPRESSION: Status post placement of right internal jugular catheter. Small right pleural effusion. Question of pulmonary edema. The preliminary [facility] report was reviewed. DATA REPOSITORY: RADIATION DOSE DELIVERED:
[2024-11-02] MEDS: Aspirin 325 MG TAB PO (10:23)
[2024-11-02] MEDS: Heparin in 0.45% NaCl 25,000 UNIT/250 ML BAG 8.5 UNIT IVINF (10:23)
[2024-11-02 10:42] LABS: Troponin I 16607 ng/L (<or=51)
--- NOTE | 2024-11-02 10:45 | RT.EKG_ITS ---
APPROVED REPORT Exam: Resting ECG Reason for Exam: SOB Patient Location: E HR:100 bpm ECG Measurements Heart Rate 100 AXIS IA 217 P 92 QRSd 110 QRS -19 QT 360 T 107 QTc 465 Conclusion Sinus tachycardia...rate> 99 Prolonged IA interval...IA >215, V-rate 91-120 Incomplete left bundle branch block...QRSd>110mS, terminal axis(-90,-1) Low voltage, extremity leads...all extremity leads <0.5mV
[2024-11-02 10:57] LABS: Potassium 5.8 mmol/L (3.5-5.1)
--- NOTE | 2024-11-02 11:14 | DI.VRAD_ITS ---
PROCEDURE INFORMATION: Exam: XR Chest Exam date and time: 11/02/2024 10:16 AM Age: 64 years old Clinical indication: Other: Central line placement TECHNIQUE: Imaging protocol: Radiologic exam of the chest. Views: 1 view. COMPARISON: CR XR CHEST 2V PA LATERAL 11/02/2024 8:25 AM FINDINGS: Tubes, catheters and devices: Right internal jugular central line tip is in the right atrium. Lungs: There is a small right pleural effusion with right lower lobe atelectasis. Pleural spaces: No left pleural effusion. Heart/Mediastinum: The heart is enlarged. Vasculature: There are aortic arch calcifications. Bones/joints: Moderate degenerative disease of bilateral acromioclavicular joints. There are mild degenerative changes of the glenohumeral joint. Curvature of the thoracic spine convex to the right. IMPRESSION: Right internal jugular central line tip is in the right atrium. No pneumothorax. Dictated and Authenticated by: Obi Ann MD. Orderin Deena Ricks MD
--- NOTE | 2024-11-02 12:07 | NUR.NOTE ---
Nursing Note: Per payroll secretary, ICU nurse called back from [place] and has asked to reach out to Cardiology. Asked to hold transfer. Calling [facility] [place] for clarification on status of acceptance.
--- NOTE | 2024-11-02 12:39 | NUR.NOTE ---
Nursing Note: [facility]/MD Shaffer have discussed and pt will be accepted at [place]. [facility] given report (still on site since 1205) and pt being transferred. Pt has upper dentures, earrings and 4 silver colored rings. has taken other belongings home with him.
--- NOTE | 2024-11-02 12:43 | NUR.NOTE ---
Nursing Note: All drips continued en route to [place] by [facility].
== END 2024-11-02 12:58 | disposition short-term general hospital (02) ==
LOC: ER 07:39
PROVIDERS: Emergency Provider Emergency Medicine; PCP Family Medicine
DX: E10.10 Type 1 diabetes mellitus with ketoacidosis without coma (principal); R65.21 Severe sepsis with septic shock; R79.89 Other specified abnormal findings of blood chemistry; R00.0 Tachycardia, unspecified; I44.7 Left bundle-branch block, unspecified; E10.22 Type 1 diabetes mellitus with diabetic chronic kidney disease; I12.9 Hypertensive chronic kidney disease with stage 1 through stage 4 chronic kidney disease, or unspecified chronic kidney disease; N18.9 Chronic kidney disease, unspecified; J44.9 Chronic obstructive pulmonary disease, unspecified; I25.10 Atherosclerotic heart disease of native coronary artery without angina pectoris; E78.5 Hyperlipidemia, unspecified; E03.9 Hypothyroidism, unspecified; F17.210 Nicotine dependence, cigarettes, uncomplicated; Z96.41 Presence of insulin pump (external) (internal); Z79.84 Long term (current) use of oral hypoglycemic drugs; Z79.4 Long term (current) use of insulin; Z79.01 Long term (current) use of anticoagulants
CPT/HCPCS: 71045; 80053; 82550; 82805; 82962; 83690; 84145; 87040; 87637; 93005; 96361; 96365; 96366; 96368; 96375; 99291; 70450; 71046; 74176; 80320; 81003; 81015; 83605; 83735; 83880; 84132; 84439; 84443; 84484; 85025; 85610; 85730; 93010; J0612; J0692; J1644; J3373

== ENCOUNTER 2024-11-15 15:33 | Outpatient (CLI) | payer MEDICARE, MEDICAID, SELFPAY ==
[2024-11-15 16:06] LABS: Hemoglobin A1C 8.6 % (<5.7)
[2024-11-15 16:09] LABS: Anion Gap 7.3 mmol/L (3-11); BUN 59 mg/dL (7-18); CO2 30.7 mmol/L (21.0-32.0); Calcium 8.9 mg/dL (8.5-10.1); Chloride 94 mmol/L (98-107); Estimated GFR 24.12 (mL/min/1.73m2); Glucose 117 mg/dL (74-106); Magnesium 2.2 mg/dL (1.8-2.4); Potassium 4.9 mmol/L (3.5-5.1); Sodium 132 mmol/L (136-145)
== END 2024-11-15 15:34 | disposition home or self-care (01) ==
LOC: LBO 15:33
PROVIDERS: PCP Family Medicine; Visit Provider Family Medicine
DX: E10.22 Type 1 diabetes mellitus with diabetic chronic kidney disease (principal); E87.1 Hypo-osmolality and hyponatremia
CPT/HCPCS: 36415; 80048; 83036; 83735

== ENCOUNTER 2024-11-28 13:37 | Outpatient (REF) | payer MEDICARE, MEDICAID, SELFPAY ==
[2024-11-28 16:42] LABS: HCT 28.6 % (36.0-46.0); HGB 9.3 g/dL (11.2-15.7)
[2024-11-28 17:05] LABS: ALT 32 U/L (14-59); AST 32 U/L (15-37); Albumin 3.2 g/dL (3.4-5.0); Alkaline Phosphatase 145 U/L (46-116); Anion Gap 7.8 mmol/L (3-11); BUN 69 mg/dL (7-18); Bilirubin, Total 0.4 mg/dL (0.2-1.0); CO2 29.2 mmol/L (21.0-32.0); Calcium 9.2 mg/dL (8.5-10.1); Chloride 99 mmol/L (98-107); Estimated GFR 24.12 (mL/min/1.73m2); Glucose 382 mg/dL (74-106); Potassium 5.0 mmol/L (3.5-5.1); Sodium 136 mmol/L (136-145); TSH (W/Ref FT4) 0.59 uIU/mL (0.36-3.74); Total Protein 6.5 g/dL (6.4-8.2)
[2024-11-28 17:12] LABS: Hemoglobin A1C 8.7 % (<5.7)
== END 2024-11-28 13:38 | disposition home or self-care (01) ==
LOC: NCHCN 13:37
PROVIDERS: PCP Family Medicine; Visit Provider Family Medicine
DX: E10.10 Type 1 diabetes mellitus with ketoacidosis without coma (principal); I10 Essential (primary) hypertension; E03.9 Hypothyroidism, unspecified; D64.9 Anemia, unspecified
CPT/HCPCS: 80053; 83036; 84443; 85014; 85018

== ENCOUNTER 2024-12-12 15:02 | Outpatient (CLI) | payer MEDICARE, MEDICAID, SELFPAY ==
[2024-12-12 15:04] LABS: HCT 30.2 % (36.0-46.0); HGB 10.1 g/dL (11.2-15.7)
== END 2024-12-12 15:03 | disposition home or self-care (01) ==
LOC: LBO 15:05
PROVIDERS: PCP Family Medicine; Visit Provider Family Medicine
DX: D64.9 Anemia, unspecified (principal)
CPT/HCPCS: 36415; 85014; 85018

== ENCOUNTER 2025-02-11 16:31 | Outpatient (REF) | payer MEDICARE, MEDICAID, SELFPAY ==
[2025-02-11 19:23] LABS: HCT 35.5 % (36.0-46.0); HGB 11.7 g/dL (11.2-15.7)
[2025-02-11 19:39] LABS: Hemoglobin A1C 8.0 % (<5.7)
[2025-02-11 19:46] LABS: ALT 25 U/L (14-59); AST 43 U/L (15-37); Albumin 3.3 g/dL (3.4-5.0); Alkaline Phosphatase 110 U/L (46-116); Anion Gap 6.2 mmol/L (3-11); BUN 30 mg/dL (7-18); Bilirubin, Total 0.6 mg/dL (0.2-1.0); CO2 31.8 mmol/L (21.0-32.0); Calcium 8.5 mg/dL (8.5-10.1); Chloride 93 mmol/L (98-107); Glucose 238 mg/dL (74-106); Magnesium 2.5 mg/dL (1.8-2.4); Potassium 4.3 mmol/L (3.5-5.1); Sodium 131 mmol/L (136-145); TSH (W/Ref FT4) 37.80 uIU/mL (0.36-3.74); Total Protein 6.2 g/dL (6.4-8.2)
== END 2025-02-11 16:32 | disposition home or self-care (01) ==
LOC: NCHCN 16:31
PROVIDERS: PCP Family Medicine; Visit Provider Family Medicine
DX: E03.9 Hypothyroidism, unspecified (principal); D64.9 Anemia, unspecified; E10.22 Type 1 diabetes mellitus with diabetic chronic kidney disease; E83.42 Hypomagnesemia; I10 Essential (primary) hypertension
CPT/HCPCS: 80053; 83036; 83735; 84439; 84443; 85014; 85018